=== PATIENT | male | born 1975 | race Hispanic/Latino ===

== ENCOUNTER 2019-08-24 00:44 | Emergency (ER) | payer OTHER, SELFPAY ==
[2019-08-24] MEDS ORDERED: NA CHLORIDE 0.9% 1,000 ML ONE (01:12)
[2019-08-24] MEDS ORDERED: ONDANSETRON 4 MG/2 ML VIAL ONE (01:12)
[2019-08-24] MEDS ORDERED: MORPHINE 4 MG/ML SYR ONE (01:12)
[2019-08-24 01:41] LABS: Basophils % 0.8 % (0-1.3); Hematocrit 39.4 % (39.6-49.0); Lymphocytes % 32.8 % (15.3-44.8); MPV 8.1 fL (7.6-11.3)
[2019-08-24 01:51] LABS: ALT/SGPT 40 U/L (12-78); AST/SGOT 20 U/L (15-37); Albumin 3.9 g/dL (3.4-5.0); Alkaline Phosphatase 72 U/L (45-117); BUN Blood Urea Nitrogen 18 mg/dL (7-18); Bicarbonate 25 mmol/L (21-32); Bilirubin Direct < 0.1 mg/dL (0-0.2); Bilirubin Total 0.2 mg/dL (0.2-1.0); Glucose Level 120 mg/dL (74-106); Lipase 113 U/L (73-393); Potassium 3.8 mmol/L (3.5-5.1); Protein, Total 7.6 g/dL (6.4-8.2); Sodium Level 139 mmol/L (136-145)
--- NOTE | 2019-08-24 03:59 | ER ---
Nurse's Notes [facility] Name: Carringotn Dumont Age: 43 yrs Sex: Male : 1975 Arrival Date: 08/24/2019 Time: 00:47 Bed 7 Private MD: Diagnosis: Abdominal tenderness Presentation: 08/24 01:07 Presenting complaint: Patient states: abd pain, back pain with N/V since 1800. ak1 Transition of care: patient was not received from another setting of care. Onset of symptoms was August 23, 2019. Risk Assessment: Do you want to hurt yourself or someone else? Patient reports no desire to harm self or others. Initial Sepsis Screen: Does the patient meet any 2 criteria? No. Patient's initial sepsis screen is negative. Does the patient have a suspected source of infection? No. Patient's initial sepsis screen is negative. Care prior to arrival: None. 01:07 Method Of Arrival: Wheelchair ak1 01:07 Acuity: DAYANNA 3 ak1 Historical: - Allergies: 01:10 PENICILLINS; ak1 - Home Meds: 01:10 levothyroxine oral [Active]; Enalapril Oral [Active]; Pepcid Oral [Active]; ak1 - PMHx: 01:10 Hypothyroidism; ak1 - PSHx: 01:10 None; ak1 - Immunization history:: Adult Immunizations unknown. - Social history:: Smoking status: Patient uses tobacco products, smokes one-half pack cigarettes per day. - Ebola Screening: : No symptoms or risks identified at this time. Screenin:10 Abuse screen: Denies threats or abuse. Denies injuries from another. Nutritional aa1 screening: No deficits noted. Tuberculosis screening: No symptoms or risk factors identified. Fall Risk None identified. Assessment: 01:10 General: Appears in no apparent distress. comfortable, Behavior is calm, cooperative, aa1 appropriate for age. Pain: Complains of pain in right lower quadrant Pain currently is 5 out of 10 on a pain scale. Quality of pain is described as sharp. Neuro: Level of Consciousness is awake, alert, obeys commands, Oriented to person, place, time, situation, Moves all extremities. Full function Gait is steady. Respiratory: Airway is patent Respiratory effort is even, unlabored, Respiratory pattern is regular, symmetrical. GI: Abdomen is obese, Bowel sounds present X 4 quads. Abd is soft X 4 quads Abdomen is tender to palpation in right lower quadrant. : No signs and/or symptoms were reported regarding the genitourinary system. EENT: No signs and/or symptoms were reported regarding the EENT system. Derm: Skin is intact, is healthy with good turgor, Skin is pink, warm \T\ dry. Musculoskeletal: Circulation, motion, and sensation intact. Capillary refill < 3 seconds. 02:13 Reassessment: pt in CT. ak1 02:27 Reassessment: pt returned from CT with infiltrated IV per industrial maintenance tech. Ursula Suero RN ak1 at bedside with ultrasound for IV placement. 03:51 Reassessment: Patient and/or family updated on plan of care and expected duration. Pain ak1 level reassessed. Patient is alert, oriented x 3, equal unlabored respirations, skin warm/dry/pink. pt resting with eyes closed, resp even and unlabored. family remains at bedside. Patient states feeling better. Patient states symptoms have improved. 04:20 Reassessment: Patient appears in no apparent distress at this time. No changes from ak1 previously documented assessment. Patient and/or family updated on plan of care and expected duration. Pain level reassessed. Patient is alert, oriented x 3, equal unlabored respirations, skin warm/dry/pink. Vital Signs: 01:06 BP 152 / 112; Pulse 78; Resp 22; Temp 97.9; Pulse Ox 97% on R/A; Weight 113.4 kg (R); ak1 Height 5 ft. 8 in. (172.72 cm) (R); Pain 5/10; 01:26 BP 142 / 87; Pulse 71; Resp 20; Pulse Ox 96% on R/A; aa1 03:51 BP 139 / 87; Pulse 66; Resp 18; Pulse Ox 97% on R/A; Pain 0/10; ak1 04:20 BP 127 / 89; Pulse 76; Resp 18; Pulse Ox 97% on R/A; ak1 01:06 Body Mass Index 38.01 (113.40 kg, 172.72 cm) ak1 ED Course: 00:47 Patient arrived in ED. cf2 00:53 Jamie Wayne MD is Attending Physician. tw4 01:06 Arm band placed on Patient placed in an exam room, on a stretcher, on pulse oximetry, ak1 Patient notified of wait time. 01:08 Triage completed. ak1 01:10 Patient has correct armband on for positive identification. Bed in low position. Call aa1 light in reach. Placed in gown. Pulse ox on. NIBP on. 01:16 Inserted saline lock: 20 gauge in right antecubital area, using aseptic technique. mw2 Blood collected. 01:41 Radiology exam delayed due to lab results not completed at this time. (BUN/Creatinine). kw1 02:12 Jessica Sharp, RN is Primary Nurse. ak1 02:18 Note: Unable to complete CT exam at this time. Patient infiltrated approximately 30 ml kw1 of IV contrast. Returned to ER and spoke with RN (Jessica Sharp) explaining the infiltration and asked to have a new IV started so exam can be completed.. 02:37 Missed attempt(s): 18 gauge in left antecubital area. Bleeding controlled, band aid lp1 applied, catheter tip intact. Inserted saline lock: 20 gauge in left antecubital area, using aseptic technique. 03:09 CT Abd/Pelvis - IV Contrast Only In Process Unspecified. EDMS 04:21 No provider procedures requiring assistance completed. IV discontinued, intact, ak1 bleeding controlled, No redness/swelling at site. Pressure dressing applied. Administered Medications: 01:20 Drug: Zofran 4 mg Route: IVP; Site: left antecubital; aa1 04:22 Follow up: Response: No adverse reaction ak1 01:20 Drug: NS 0.9% 1000 ml Route: IV; Rate: 1 bolus; Site: right antecubital; aa1 02:30 Follow up: IV Status: Completed infusion; IV Intake: 1000ml ak1 02:38 Follow up: IV SiteChange: left antecubital; IV SiteChange Reason: Infiltration lp1 01:22 Drug: morphine 4 mg Route: IVP; Site: right antecubital; aa1 04:22 Follow up: Response: No adverse reaction; Pain is decreased; RASS: Drowsy (-1) ak1 Intake: 02:30 IV: 1000ml; Total: 1000ml. ak1 Outcome: 03:59 Discharge ordered by . tw4 04:21 Discharged to home ambulatory, with family. ak1 04:21 Condition: improved 04:21 Discharge instructions given to patient, family, Instructed on discharge instructions, follow up and referral plans. no drinking with medication, no driving heavy equipment, medication usage, Demonstrated understanding of instructions, follow-up care, medications, Prescriptions given X 2. 04:22 Patient left the ED. ak1 Signatures: Dispatcher [employer] EDMS Marleen García RN RN aa1 Jessie Kelsey RN RN lp1 Jessica Sharp RN RN ak1 Danielle Dalton1 Jamie Wayne MD MD tw4 Daniel Myers 2 Lissette Garsia 2 Corrections: (The following items were deleted from the chart) 01:25 01:22 morphine 4 mg IVP in left antecubital aa1 aa1 01:26 01:21 NS 0.9% 1000 ml IV at 1 bolus in right antecubital aa1 aa1
--- NOTE | 2019-08-24 03:59 | EDPHYS ---
Physician Documentation [facility] Name: Carrington Dumont Age: 43 yrs Sex: Male : 1975 Arrival Date: 08/24/2019 Time: 00:47 Bed 7 Private MD: ED Physician Jamie Wayne HPI: 08/24 01:17 This 43 yrs old Male presents to ER via Wheelchair with complaints of tw4 Abdominal Pain, Back Pain, Chest Pain. 01:17 The patient presents with pain that is acute. tw4 01:24 The patient presents with abdominal pain in the lower abdomen, abdominal distention tw4 that is diffuse. Onset: The symptoms/episode began/occurred yesterday. The symptoms do not radiate. Associated signs and symptoms: none. The symptoms are described as sharp. Modifying factors: The symptoms are alleviated by remaining still, the symptoms are aggravated by movement, pressure. Severity of pain: At its worst the pain was moderate in the emergency department the pain is unchanged. The patient has not experienced similar symptoms in the past. Historical: - Allergies: 01:10 PENICILLINS; ak1 - Home Meds: 01:10 levothyroxine oral [Active]; Enalapril Oral [Active]; Pepcid Oral [Active]; ak1 - PMHx: 01:10 Hypothyroidism; ak1 - PSHx: 01:10 None; ak1 - Immunization history:: Adult Immunizations unknown. - Social history:: Smoking status: Patient uses tobacco products, smokes one-half pack cigarettes per day. - Ebola Screening: : No symptoms or risks identified at this time. ROS: 01:24 Constitutional: Negative for fever, chills, and weight loss, Eyes: Negative for injury, tw4 pain, redness, and discharge, Cardiovascular: Negative for chest pain, palpitations, and edema, Respiratory: Negative for shortness of breath, cough, wheezing, and pleuritic chest pain, Back: Negative for injury and pain, MS/Extremity: Negative for injury and deformity, Skin: Negative for injury, rash, and discoloration, Neuro: Negative for headache, weakness, numbness, tingling, and seizure. 01:24 Abdomen/GI: Positive for abdominal pain, nausea and vomiting, nausea, vomiting, abdominal cramps, abdominal distension. Exam: 01:24 Constitutional: This is a well developed, well nourished patient who is awake, alert, tw4 and in no acute distress. Head/Face: Normocephalic, atraumatic. Chest/axilla: Normal chest wall appearance and motion. Nontender with no deformity. No lesions are appreciated. Cardiovascular: Regular rate and rhythm with a normal S1 and S2. No gallops, murmurs, or rubs. Normal PMI, no JVD. No pulse deficits. Respiratory: Lungs have equal breath sounds bilaterally, clear to auscultation and percussion. No rales, rhonchi or wheezes noted. No increased work of breathing, no retractions or nasal flaring. Back: No spinal tenderness. No costovertebral tenderness. Full range of motion. MS/ Extremity: Pulses equal, no cyanosis. Neurovascular intact. Full, normal range of motion. Neuro: Awake and alert, GCS 15, oriented to person, place, time, and situation. Cranial nerves II-XII grossly intact. Motor strength 5/5 in all extremities. Sensory grossly intact. Cerebellar exam normal. Normal gait. 01:24 Abdomen/GI: Inspection: abdomen appears normal, Bowel sounds: diminished, Palpation: moderate abdominal tenderness, in the right lower quadrant, voluntary guarding, is elicited in the right lower quadrant. Vital Signs: 01:06 BP 152 / 112; Pulse 78; Resp 22; Temp 97.9; Pulse Ox 97% on R/A; Weight 113.4 kg (R); ak1 Height 5 ft. 8 in. (172.72 cm) (R); Pain 5/10; 01:26 BP 142 / 87; Pulse 71; Resp 20; Pulse Ox 96% on R/A; aa1 03:51 BP 139 / 87; Pulse 66; Resp 18; Pulse Ox 97% on R/A; Pain 0/10; ak1 04:20 BP 127 / 89; Pulse 76; Resp 18; Pulse Ox 97% on R/A; ak1 01:06 Body Mass Index 38.01 (113.40 kg, 172.72 cm) ak1 MDM: 01:05 Patient medically screened. tw4 06:36 Data reviewed: vital signs, nurses notes. Data interpreted: Pulse oximetry: tw4 Interpretation: normal. Counseling: I had a detailed discussion with the patient and/or guardian regarding: the historical points, exam findings, and any diagnostic results supporting the discharge/admit diagnosis, the presence of at least one elevated blood pressure reading (>120/80) during this emergency department visit. Special discussion: I discussed with the patient/guardian in detail that at this point there is no indication for admission to the hospital. It is understood, however, that if the symptoms persist or worsen the patient needs to return immediately for re-evaluation. 08/24 00:53 Order name: Basic Metabolic Panel; Complete Time: 03:52 08/24 03:52 Interpretation: Normal except: GLUC 120. 08/24 00:53 Order name: CBC with Diff; Complete Time: 03:52 08/24 03:52 Interpretation: Normal except: RBC 4.30; HCT 39.4. 08/24 00:53 Order name: Creatinine for Radiology; Complete Time: 03:52 08/24 03:52 Interpretation: Within normal limits: CRE 0.89. 08/24 00:53 Order name: Hepatic Function; Complete Time: 03:52 08/24 03:52 Interpretation: Normal except: GLOB 3.7. 08/24 00:53 Order name: Lipase; Complete Time: 03:52 08/24 03:52 Interpretation: Within normal limits: LIP 113. 08/24 01:11 Order name: CT Abd/Pelvis - IV Contrast Only 08/24 00:53 Order name: IV Saline Lock; Complete Time: 01:15 08/24 00:53 Order name: Labs collected and sent; Complete Time: 01:15 Administered Medications: 01:20 Drug: Zofran 4 mg Route: IVP; Site: left antecubital; aa1 04:22 Follow up: Response: No adverse reaction ak1 01:20 Drug: NS 0.9% 1000 ml Route: IV; Rate: 1 bolus; Site: right antecubital; aa1 02:30 Follow up: IV Status: Completed infusion; IV Intake: 1000ml ak1 02:38 Follow up: IV SiteChange: left antecubital; IV SiteChange Reason: Infiltration lp1 01:22 Drug: morphine 4 mg Route: IVP; Site: right antecubital; aa1 04:22 Follow up: Response: No adverse reaction; Pain is decreased; RASS: Drowsy (-1) ak1 Disposition: 08/24/19 03:59 Discharged to Home. Impression: Abdominal tenderness. - Condition is Stable. - Discharge Instructions: Abdominal Pain, Adult, Whit-ll-Dtss. - Prescriptions for Bentyl 20 mg Oral Tablet - take 1 tablet by ORAL route every 6 hours As needed; 20 tablet. Protonix 40 mg Oral Tablet - take 1 tablet by ORAL route once daily; 30 tablet. - Medication Reconciliation Form, Thank You Letter, Antibiotic Education, Prescription Opioid Use form. - Follow up: Private Physician; When: Upon discharge from the Emergency Department; Reason: Recheck today's complaints, Continuance of care. - Problem is new. - Symptoms have improved. Signatures: Dispatcher [employer] EDMS Marleen García RN RN aa1 Jessica Sharp RN RN ak1 Jamie Wayne MD MD tw4 Jessie Kelsey RN lp1 Corrections: (The following items were deleted from the chart) 04:22 03:59 08/24/2019 03:59 Discharged to Home. Impression: Abdominal tenderness. Condition ak1 is Stable. Forms are Medication Reconciliation Form, Thank You Letter, Antibiotic Education, Prescription Opioid Use. Follow up: Private Physician; When: Upon discharge from the Emergency Department; Reason: Recheck today's complaints, Continuance of care. Problem is new. Symptoms have improved. tw4
[2019-08-24 04:32] VITALS: TEMP 97.9
[2019-08-24 04:35] VITALS: O2SAT 97
[2019-08-24 04:36] VITALS: BP 127/89
--- NOTE | 2019-08-24 11:02 | RAD REPORT ---
EXAM DESCRIPTION: CT - Abdomen Pelvis W Contrast - 08/24/2019 3:38 am CLINICAL HISTORY: The patient is 43 years old and is Male; ABD PAIN TECHNIQUE: Axial computed tomography images of the abdomen and pelvis with intravenous contrast. S agittal and coronal reformatted images were created and reviewed. This CT exam was performed using one or more of the following dose reduction techniques: automated exposure control, adjustment of t he mA and/or kV according to patient size, and/or use of iterative reconstruction technique. COMPARISON: No relevant prior studies available. FINDINGS: LUNG BASES: Unremarkable. No mass. No consolidation. MEDIASTINUM: A small hiatal hernia is present. ABDOMEN: LIVER: There is a diffuse decrease in hepatic parenchymal density, consistent with fatty infiltr ation. GALLBLADDER AND BILE DUCTS: No calcified stones. No ductal dilation. PANCREAS: No ductal dilation. No mass. SPLEEN: Unremarkable. ADRENALS: Unremarkable. No mass. KIDNEYS AND URETERS: Unremarkable. The kidneys enhance symmetrically. No obstructing renal or ur eteral calculus is seen. No hydronephrosis or hydroureter. No perinephric fluid or stranding. STOMACH AND BOWEL: The stomach is distended with fluid and air. The small bowel is normal in neal iber. A moderate amount of stool is present throughout colon. There is no mucosal thickening or evide nce of bowel obstruction. PELVIS: APPENDIX: The appendix is normal in caliber without surrounding inflammation. BLADDER: The bladder is not well distended. REPRODUCTIVE: Unremarkable as visualized. ABDOMEN and PELVIS: INTRAPERITONEAL SPACE: Unremarkable. No free air. No significant fluid collection. BONES/JOINTS: Bilateral pars defects are present at L5 without evidence of anterolisthesis. Mi nimal degenerative change of the spine is present. SOFT TISSUES: There are small bilateral fat containing inguinal hernias. VASCULATURE: Unremarkable. No abdominal aortic aneurysm. LYMPH NODES: Unremarkable. No enlarged lymph nodes. IMPRESSION: No acute findings on this contrasted CT of the abdomen and pelvis to explain the patient 's symptoms. Electronically signed by: Janie Rushing MD 08/24/2019 3:31 AM STATEMENT PROCESSOR Due to temporary technical issues with the PACS/Fluency reporting system, reports are being signed by the in house radiologist as a courtesy to ensure prompt reporting. The interpreting radiologist is f ully responsible for the content of the report.
--- OUTSIDE RECORDS SUMMARY | 2019-08-29 22:11 | XMS REPORT ---
:1975 [facility] Address [address] [place]lsen [address] [place] [id number] Care Team Providers Name Role Phone Unavailable Unavailable Unavailable Problems This patient has no known problems. Allergies, Adverse Reactions, Alerts This patient has no known allergies or adverse reactions. Medications This patient has no known medications.
== END 2019-08-24 04:22 | disposition home or self-care (01) ==
LOC: ER 00:44
DX: R10.819 Abdominal tenderness, unspecified site (principal); E03.9 Hypothyroidism, unspecified; F17.210 Nicotine dependence, cigarettes, uncomplicated; Z88.0 Allergy status to penicillin
CPT/HCPCS: 36415; 74177; 80048; 80076; 83690; 85025; 96361; 96374; 96375; 99284; J2405; J7030; Q9967

== ENCOUNTER 2019-09-16 23:01 | Emergency (ER) | payer SELFPAY ==
--- OUTSIDE RECORDS SUMMARY | 2019-09-16 23:03 | XMS REPORT ---
:1975 [facility] Address [address] [place]lsen [address] [place] [id number] Care Team Providers Name Role Phone Unavailable Unavailable Unavailable Problems This patient has no known problems. Allergies, Adverse Reactions, Alerts This patient has no known allergies or adverse reactions. Medications This patient has no known medications.
[2019-09-17] MEDS ORDERED: ASPIRIN 81 MG CHEWABLE TABLET ONE
[2019-09-17 00:10] LABS: Arterial Blood Carboxyhemoglob 2.2 % (0-1.5); Blood Gas Oxyhemoglobin 95.3 % (94-97); Blood O2 Saturation 98.3 % (92-98.5)
[2019-09-17 00:25] LABS: Basophils % 0.7 % (0-1.3); Hematocrit 42.1 % (39.6-49.0); RBC Red Blood Cell Count 4.57 M/uL (4.33-5.43)
[2019-09-17 00:31] LABS: Protime INR 0.96
[2019-09-17 00:54] LABS: ALT/SGPT 58 U/L (12-78); AST/SGOT 30 U/L (15-37); Albumin 4.2 g/dL (3.4-5.0); Alkaline Phosphatase 84 U/L (45-117); BUN Blood Urea Nitrogen 14 mg/dL (7-18); Bicarbonate 25 mmol/L (21-32); Bilirubin Direct < 0.1 mg/dL (0-0.2); Bilirubin Total 0.3 mg/dL (0.2-1.0); Glucose Level 116 mg/dL (74-106); Magnesium 2.4 mg/dL (1.8-2.4); NT PRO-BNP 19 pg/mL (<125); Protein, Total 8.5 g/dL (6.4-8.2); Sodium Level 138 mmol/L (136-145); Troponin (Emerg Dept Use Only) < 0.02 ng/mL (0.0-0.045)
[2019-09-17 01:08] LABS: Barbiturates NEGATIVE (NEGATIVE); Benzodiazepines NEGATIVE (NEGATIVE); Cocaine NEGATIVE (NEGATIVE); METHAMPHETAM NEGATIVE (NEGATIVE); Methadone NEGATIVE (NEGATIVE); Opiates NEGATIVE (NEGATIVE); Phencyclidine NEGATIVE (NEGATIVE); THC Cannibis NEGATIVE (NEGATIVE)
[2019-09-17] MEDS ORDERED: ALBUTEROL 2.5 MG/3 ML NEB SOL ONE (02:04)
[2019-09-17] MEDS ORDERED: IPRATROPIUM BROM 0.5MG/2.5ML ONE (02:04)
--- NOTE | 2019-09-17 02:42 | ER ---
Nurse's Notes [facility] Name: Carrington Dumont Age: 43 yrs Sex: Male : 1975 Arrival Date: 09/16/2019 Time: 23:03 Bed 15 Private MD: Diagnosis: Chest pain Presentation: 09/16 23:23 Presenting complaint: Patient states: int burning CP since 2100 tonight. Also c/o aa1 swelling in LLE and SOB. Transition of care: patient was not received from another setting of care. Onset of symptoms was September 16, 2019 at 21:00. Risk Assessment: Do you want to hurt yourself or someone else? Patient reports no desire to harm self or others. Initial Sepsis Screen: Does the patient meet any 2 criteria? No. Patient's initial sepsis screen is negative. Does the patient have a suspected source of infection? No. Patient's initial sepsis screen is negative. Care prior to arrival: None. 23:23 Method Of Arrival: Ambulatory aa1 23:23 Acuity: DAYANNA 2 aa1 Historical: - Allergies: 23:26 PENICILLINS; aa1 - Home Meds: 23:26 enalapril maleate 10 mg oral tab 1 tab once daily [Active]; levothyroxine 125 mcg oral aa1 tab 1 tab once daily [Active]; - PMHx: 23:26 Hypothyroidism; Hypertension; aa1 - PSHx: 23:26 Tonsillectomy; aa1 - Immunization history:: Flu vaccine is not up to date. - Social history:: Smoking status: Patient uses tobacco products, smokes one-half pack cigarettes per day. - Ebola Screening: : Patient denies exposure to infectious person Patient denies travel to an Ebola-affected area in the 21 days before illness onset. Screenin:30 Abuse screen: Denies threats or abuse. Denies injuries from another. Nutritional aa1 screening: No deficits noted. Tuberculosis screening: No symptoms or risk factors identified. Fall Risk None identified. Assessment: 23:30 General: Appears in no apparent distress. uncomfortable, Behavior is calm, cooperative, aa1 appropriate for age. Pain: Complains of pain in chest Pain radiates to left arm Pain currently is 10 out of 10 on a pain scale. Quality of pain is described as burning, Pain began 3 hours ago. Is intermittent. Neuro: Level of Consciousness is awake, alert, obeys commands, Oriented to person, place, time, situation, Moves all extremities. Full function Gait is steady, Speech is normal. Cardiovascular: Reports chest pain, shortness of breath, Denies diaphoresis, nausea, palpitations, vomiting, Heart tones S1 S2 present Capillary refill < 3 seconds Clubbing of nail beds is absent JVD is absent Patient's skin is warm and dry. Rhythm is regular Chest pain quality is burning, is located in substernal area radiates to left arm(s) began 3 hours prior to arrival episodes are intermittent. Respiratory: Airway is patent Respiratory effort is even, unlabored, Respiratory pattern is regular, symmetrical. GI: No signs and/or symptoms were reported involving the gastrointestinal system. : No signs and/or symptoms were reported regarding the genitourinary system. EENT: No signs and/or symptoms were reported regarding the EENT system. Derm: Skin is intact, is healthy with good turgor, Skin is pink, warm \T\ dry. Musculoskeletal: Circulation, motion, and sensation intact. Capillary refill < 3 seconds. 09/17 00:58 Reassessment: Patient appears in no apparent distress at this time. Patient and/or aa1 family updated on plan of care and expected duration. Pain level reassessed. Patient is alert, oriented x 3, equal unlabored respirations, skin warm/dry/pink. Awaiting UDS results Patient states feeling better. 01:57 Reassessment: Patient appears in no apparent distress at this time. Patient and/or aa1 family updated on plan of care and expected duration. Pain level reassessed. Patient is alert, oriented x 3, equal unlabored respirations, skin warm/dry/pink. Awaiting repeat troponin level. 02:10 Reassessment: Patient appears in no apparent distress at this time. Patient and/or cc3 family updated on plan of care and expected duration. Pain level reassessed. Patient is alert, oriented x 3, equal unlabored respirations, skin warm/dry/pink. Patient denies pain at this time. 02:50 Reassessment: Patient appears in no apparent distress at this time. Patient and/or cc3 family updated on plan of care and expected duration. Pain level reassessed. Patient is alert, oriented x 3, equal unlabored respirations, skin warm/dry/pink. Dr. Howard discharged the patient home with prescription given. IV cannula removed and patient left ER vitally stable and ambulatory with his . No valuables left in the patient's room. Patient denies pain at this time. Patient states feeling better. Patient states symptoms have improved. Vital Signs: 09/16 23:26 BP 138 / 88; Pulse 85; Resp 18; Temp 97.7; Pulse Ox 98% on R/A; Weight 113.4 kg; Height aa1 5 ft. 8 in. (172.72 cm); Pain 10/10; 09/17 00:58 BP 128 / 90; Pulse 76; Resp 20; Pulse Ox 94% on R/A; Pain 0/10; aa1 01:57 BP 137 / 76; Pulse 80; Resp 22; Pulse Ox 95% on R/A; aa1 02:30 BP 137 / 80; Pulse 83; Resp 19 S; Pulse Ox 98% on R/A; Pain 0/10; cc3 09/16 23:26 Body Mass Index 38.01 (113.40 kg, 172.72 cm) aa1 ED Course: 09/16 23:03 Patient arrived in ED. mr 23:10 Daniel Howard MD is Attending Physician. pkl 23:23 Marleen García RN is Primary Nurse. aa1 23:24 Triage completed. aa1 23:26 Arm band placed on right wrist. aa1 23:30 Patient has correct armband on for positive identification. Placed in gown. Bed in low aa1 position. Call light in reach. environmental monitoring specialist on. Pulse ox on. NIBP on. 23:30 Patient maintains SpO2 saturation greater than 95% on room air. aa1 09/17 00:05 Inserted saline lock: 20 gauge in right forearm, using aseptic technique. Blood ds4 collected. Missed attempt(s): 20 gauge in right antecubital area. Bleeding controlled, band aid applied, catheter tip intact. 02:00 Report given to Shima Anderson RN. aa1 02:00 Report received from VIOLET Hawley. cc3 02:40 Arsenio Urbina MD is Referral Physician. pkl 02:50 No provider procedures requiring assistance completed. IV discontinued, intact, cc3 bleeding controlled, No redness/swelling at site. Pressure dressing applied. Administered Medications: 00:00 Drug: Aspirin 162 mg Route: PO; aa1 01:03 Follow up: Response: No adverse reaction aa1 02:00 Drug: Albuterol - atroVENT (3:1) (2.5 mg - 0.5 mg) 3 ml Route: Nebulizer; cc3 02:33 Follow up: Response: No adverse reaction; Marked relief of symptoms cc3 Outcome: 02:41 Discharge ordered by . pkjewell 02:50 Discharged to home ambulatory, with family. cc3 02:50 Condition: stable 02:50 Discharge instructions given to patient, family, Instructed on discharge instructions, follow up and referral plans. medication usage, Demonstrated understanding of instructions, follow-up care, medications, Prescriptions given X 1. 03:00 Patient left the ED. cc3 Signatures: Marleen García RN RN aa1 Daniel Howard MD MD pkl Rivera, Mary mr Swanson, Donovan dsShima Olivera cc3
--- NOTE | 2019-09-17 02:43 | EDPHYS ---
Physician Documentation [facility] Name: Carrington Dumont Age: 43 yrs Sex: Male : 1975 Arrival Date: 09/16/2019 Time: 23:03 Bed 15 Private MD: ED Physician Daniel Howard HPI: 09/16 23:37 This 43 yrs old Male presents to ER via Ambulatory with complaints of Chest pkl Pain. 23:37 The patient or guardian reports chest pain that is located primarily in the substernal pkl area. Onset: just prior to arrival, 2 hour(s) ago. The pain radiates to the left arm. Associated signs and symptoms: Pertinent positives: shortness of breath, swelling left leg. The chest pain is described as burning, a pressure. Historical: - Allergies: 23:26 PENICILLINS; aa1 - Home Meds: 23:26 enalapril maleate 10 mg oral tab 1 tab once daily [Active]; levothyroxine 125 mcg oral aa1 tab 1 tab once daily [Active]; - PMHx: 23:26 Hypothyroidism; Hypertension; aa1 - PSHx: 23:26 Tonsillectomy; aa1 - Immunization history:: Flu vaccine is not up to date. - Social history:: Smoking status: Patient uses tobacco products, smokes one-half pack cigarettes per day. - Ebola Screening: : Patient denies exposure to infectious person Patient denies travel to an Ebola-affected area in the 21 days before illness onset. ROS: 23:39 Eyes: Negative for injury, pain, redness, and discharge, ENT: Negative for injury, pkl pain, and discharge, Neck: Negative for injury, pain, and swelling. 23:39 Cardiovascular: Positive for chest pain. 23:39 Respiratory: Positive for shortness of breath, Negative for cough. 23:39 Abdomen/GI: Negative for abdominal pain, nausea, vomiting, and diarrhea. 23:39 Back: Negative for pain at rest. 23:39 : Negative for urinary symptoms. 23:39 MS/extremity: Positive for swelling, of the left leg. 23:39 Skin: Negative for rash. 23:39 Neuro: Negative for altered mental status, loss of consciousness. Exam: 23:39 Head/Face: Normocephalic, atraumatic. Eyes: Pupils equal round and reactive to light, pkl extra-ocular motions intact. Lids and lashes normal. Conjunctiva and sclera are non-icteric and not injected. Cornea within normal limits. Periorbital areas with no swelling, redness, or edema. ENT: Nares patent. No nasal discharge, no septal abnormalities noted. Tympanic membranes are normal and external auditory canals are clear. Oropharynx with no redness, swelling, or masses, exudates, or evidence of obstruction, uvula midline. Mucous membranes moist. Neck: Trachea midline, no thyromegaly or masses palpated, and no cervical lymphadenopathy. Supple, full range of motion without nuchal rigidity, or vertebral point tenderness. No Meningismus. Chest/axilla: Normal chest wall appearance and motion. Nontender with no deformity. No lesions are appreciated. Cardiovascular: Regular rate and rhythm with a normal S1 and S2. No gallops, murmurs, or rubs. Normal PMI, no JVD. No pulse deficits. Respiratory: Lungs have equal breath sounds bilaterally, clear to auscultation and percussion. No rales, rhonchi or wheezes noted. No increased work of breathing, no retractions or nasal flaring. Abdomen/GI: Soft, non-tender, with normal bowel sounds. No distension or tympany. No guarding or rebound. No evidence of tenderness throughout. Back: No spinal tenderness. No costovertebral tenderness. Full range of motion. Skin: Warm, dry with normal turgor. Normal color with no rashes, no lesions, and no evidence of cellulitis. 23:39 Musculoskeletal/extremity: Extremities: grossly normal except: noted in the left leg: swelling. 23:39 Neuro: Orientation: is normal, Mentation: is normal, Cranial nerves: grossly normal, Motor: is normal. Vital Signs: 23:26 BP 138 / 88; Pulse 85; Resp 18; Temp 97.7; Pulse Ox 98% on R/A; Weight 113.4 kg; Height aa1 5 ft. 8 in. (172.72 cm); Pain 07/29; 09/17 00:58 BP 128 / 90; Pulse 76; Resp 20; Pulse Ox 94% on R/A; Pain 0/10; aa1 01:57 BP 137 / 76; Pulse 80; Resp 22; Pulse Ox 95% on R/A; aa1 02:30 BP 137 / 80; Pulse 83; Resp 19 S; Pulse Ox 98% on R/A; Pain 0/10; cc3 09/16 23:26 Body Mass Index 38.01 (113.40 kg, 172.72 cm) aa1 MDM: 09/16 23:10 Patient medically screened. pkl 09/17 02:34 Data reviewed: vital signs, nurses notes, lab test result(s), EKG, radiologic studies, pkl plain films. ED course: Patient feeling better. Asymptomatic. Discussed lab. and X' rays results with patient. Advised to follow up with [employer] Professor in 2 to 3 days for further evaluations .To return if symptoms are worse. Patient understood instructions. 09/16 23:33 Order name: Basic Metabolic Panel pkl 09/16 23:33 Order name: CBC with Diff pkl 09/16 23:33 Order name: LFT's pkl 09/16 23:33 Order name: Magnesium pkl 09/16 23:33 Order name: NT PRO-BNP pkl 09/16 23:33 Order name: PT-INR pkl 09/16 23:33 Order name: Troponin (emerg Dept Use Only) pkl 09/16 23:33 Order name: D-Dimer pkl 09/16 23:33 Order name: ABG pkl 09/17 00:12 Order name: ABG Arterial Blood Gas; Complete Time: 00:32 EDMS 09/17 00:33 Order name: CBC with Automated Diff; Complete Time: 00:33 EDMS 09/17 00:33 Order name: Protime (+INR); Complete Time: 00:33 EDMS 09/17 00:33 Order name: D-Dimer; Complete Time: 00:33 EDMS 09/16 23:28 Order name: EKG; Complete Time: 23:28 aa1 09/16 23:28 Order name: EKG - Nurse/Tech; Complete Time: 23:28 aa1 09/16 23:33 Order name: XRAY Chest (1 view) pkl 09/16 23:33 Order name: EKG; Complete Time: 23:34 pkl 09/16 23:33 Order name: Cardiac monitoring; Complete Time: 23:44 pkl 09/17 00:54 Order name: Basic Metabolic Panel; Complete Time: 01:07 EDMS 09/17 00:54 Order name: Liver (Hepatic) Function; Complete Time: 01:07 EDMS 09/17 00:54 Order name: Troponin (Emerg Dept Use Only); Complete Time: 01:07 EDMS 09/17 00:54 Order name: NT PRO-BNP; Complete Time: 01:07 EDMS 09/17 00:54 Order name: Magnesium; Complete Time: 01:07 EDMS 09/17 01:08 Order name: Urine Drug Screen; Complete Time: 01:14 EDMS 09/17 01:43 Order name: EKG; Complete Time: 01:44 pkl 09/17 01:43 Order name: Troponin (emerg Dept Use Only) pkl 09/17 02:19 Order name: Troponin (Emerg Dept Use Only); Complete Time: 02:32 EDMS 09/16 23:33 Order name: EKG - Nurse/Tech; Complete Time: 23:44 pkl 09/16 23:33 Order name: IV Saline Lock; Complete Time: 01:03 pkl 09/16 23:33 Order name: Labs collected and sent; Complete Time: 01:03 pkl 09/16 23:33 Order name: O2 Per Protocol; Complete Time: 23:45 pkl 09/16 23:33 Order name: O2 Sat Monitoring; Complete Time: 23:45 pkl Administered Medications: 00:00 Drug: Aspirin 162 mg Route: PO; aa1 01:03 Follow up: Response: No adverse reaction aa1 02:00 Drug: Albuterol - atroVENT (3:1) (2.5 mg - 0.5 mg) 3 ml Route: Nebulizer; cc3 02:33 Follow up: Response: No adverse reaction; Marked relief of symptoms cc3 Disposition: 09/17/19 02:41 Discharged to Home. Impression: Chest pain. - Condition is Stable. - Prescriptions for Albuterol Sulfate 90 mcg/actuation - inhale 1-2 puff by INHALATION route every 4-6 hours; 1 Inhaler. - Medication Reconciliation Form, Thank You Letter, Antibiotic Education, Prescription Opioid Use form. - Follow up: Arsenio Urbina MD; When: 2 - 3 days; Reason: Re-evaluation by your physician. - Problem is new. - Symptoms have improved. Signatures: Dispatcher [employer] EDMarleen Coronado RN RN aa1 Daniel Howard MD MD pkl Shima Anderson cc3 Corrections: (The following items were deleted from the chart) 09/16 23:45 23:34 URINE DRUG SCREEN+CHEM UR.LAB.BRZ ordered. EDMS EDMS 09/17 03:00 02:41 09/17/2019 02:41 Discharged to Home. Impression: Chest pain. Condition is Stable. cc3 Forms are Medication Reconciliation Form, Thank You Letter, Antibiotic Education, Prescription Opioid Use. Follow up: Arsenio Urbina; When: 2 - 3 days; Reason: Re-evaluation by your physician. Problem is new. Symptoms have improved. pkl
--- NOTE | 2019-09-17 08:36 | RAD REPORT ---
EXAM DESCRIPTION: [facility] Single View09/16/2019 11:53 pm CLINICAL HISTORY: Chest pain COMPARISON: none FINDINGS: The lungs appear clear of acute infiltrate. The heart is normal size IMPRESSION: No acute abnormalities displayed
--- NOTE | 2019-09-17 09:38 | EKG ---
Test Date: 2019-09-17 Test Time: 02:13:29 Haunted History Tour Guide: SKYLA MEASUREMENT RESULTS: Intervals: Rate: 78 IN: 132 QRSD: 92 QT: 392 QTc: 446 [place]: P: 44 IN: 132 QRS: 47 T: 55 INTERPRETIVE STATEMENTS: Normal sinus rhythm Nonspecific T wave abnormality Abnormal ECG Compared to ECG 09/16/2019 23:20:52 No significant changes Electronically Signed On 09-17-19 09:37:45 GLOVE PARTS CUTTER by Arsenio Urbina
--- NOTE | 2019-09-17 09:39 | EKG ---
Test Date: 2019-09-16 Test Time: 23:20:52 Paste Up Artist: TOREY MEASUREMENT RESULTS: Intervals: Rate: 78 MS: 126 QRSD: 90 QT: 374 QTc: 426 [place]: P: 27 MS: 126 QRS: 36 T: 50 INTERPRETIVE STATEMENTS: Normal sinus rhythm Nonspecific T wave abnormality Abnormal ECG Compared to ECG 05/23/2017 03:43:53 T-wave abnormality now present Myocardial infarct finding no longer present Electronically Signed On 09-17-19 09:39:16 BUSINESS DEVELOPMENT EXECUTIVE by Arsenio Urbina
[2019-09-17 16:05] VITALS: TEMP 97.7
[2019-09-17 16:09] VITALS: BP 137/80; O2SAT 98
== END 2019-09-17 03:00 | disposition home or self-care (01) ==
LOC: ER 23:01
DX: R07.9 Chest pain, unspecified (principal); I10 Essential (primary) hypertension; E03.9 Hypothyroidism, unspecified; F17.210 Nicotine dependence, cigarettes, uncomplicated; Z88.0 Allergy status to penicillin
CPT/HCPCS: 36415; 71045; 80048; 80076; 80307; 82805; 83735; 83880; 84484; 85025; 85379; 85610; 93005; 94640; 99285

== ENCOUNTER 2020-07-10 21:22 | Emergency (ER) | payer SELFPAY ==
--- OUTSIDE RECORDS SUMMARY | 2020-07-10 21:23 | XMS REPORT | Continuity of Care Document ---
:1975 Author Organization [facility] t Address [address] [place] [address] Care Team Providers Name Role Phone Mihaela Contreras MD Attending Clinician Problems This patient has no known problems. Allergies, Adverse Reactions, Alerts This patient has no known allergies or adverse reactions. Medications This patient has no known medications. Procedures This patient has no known procedures. Encounters Start End Encounter Admission Attending Care Care Encounter Source Date/Time Date/Time Type Type Clinicians Facility Department ID 2020-07-09 2020-07-10 Emergency [facility] [id number] 19:41:00 00:40:00 Mihaela Landeros [id number] [place] [id number] [place] [id number] Results This patient has no known results.
--- OUTSIDE RECORDS SUMMARY | 2020-07-10 21:24 | XMS REPORT | Summary of Care ---
:1975 Author Organization [facility] Address [address] [place] [id number] Care Team Providers Name Role Phone Pcp, Does Not Have A Primary Care Provider Reason for Referral MRI/CAT Scan (STAT) Status Reason Specialty Diagnoses / Referred By Referred To Procedures Contact Contact New Request Diagnostic Diagnoses Chest pain, unspecified type Florinarima, [place] Radiology Procedures CT ABDOMEN PELVIS W MURIEL Olguin MD [address] [place] [address] Radiology Services (STAT) Status Reason Specialty Diagnoses / Referred By Referred To Procedures Contact Contact New Request Diagnostic Diagnoses Chest pain, unspecified type Yarima, [place] Radiology Procedures XR CHEST 1 IRENA Olguin MD [address] [place], [place] [id number] Reason for Visit Reason Comments Chest Pain Auth/Cert Status Reason Specialty Diagnoses / Referred By Referred To Procedures Contact Contact Emergency Medicine [facility] ergency Dept [address] [place] [address] Fax: Encounter Details Date Type Department Care Team Description 07/09/2020 - Emergency ADC-Emergency Yarima, [place] S, Epigastri c pain (Primary Dx); 07/10/2020 Department Chest pain, unspecified type; [address] [place] [address] [facility] [phone] Allergies Active Allergy Reactions Severity Noted Date Comments Penicillin Unknown - See comments 03/30/2019 documented as of this encounter (statuses as of 07/10/2020) Medications Medication Sig Dispensed Refills Start Date End Date Status levothyroxine 125 mcg Take 125 mcg by 0 Active tablet mouth every morning. LORazepam (ATIVAN) 0.5 Take 1 tablet by 10 tablet 0 06/14/2017 Active mg tablet mouth 2 (two) times daily as needed for Anxiety. cyclobenzaprine 5 mg Take 1 tablet by 24 tablet 0 03/30/2019 Active tabletIndications: mouth 3 (three) Lumbar pain, Muscle times daily as spasm needed for Muscle Spasms. ibuprofen 800 mg Take 1 tablet by 21 tablet 0 08/17/2019 Active tabletIndications: Left mouth every 8 flank pain, (eight) hours as Hypertension, needed for Pain unspecified type (scale 4-6). pantoprazole (PROTONIX) Take 1 tablet by 28 tablet 0 0 Active 40 mg EC mouth daily. tabletIndications: Epigastric pain dicyclomine 20 mg Take 1 tablet by 20 tablet 0 07/10/2020 Active tabletIndications: mouth every 6 Epigastric pain (six) hours as needed for Abdominal pain. benzonatate 200 mg Take 1 capsule 21 capsule 0 07/10/2020 Active capsuleIndications: by mouth 3 Cough (three) times daily as needed for Cough. documented as of this encounter (statuses as of 07/10/2020) Active Problems No known active problemsdocumented as of this encounter (statuses as of 07/10/2020) Social History Tobacco Use Types Packs/Day Years Used Date Never Assessed Sex Assigned at Date Recorded Not on file COVID-19 Exposure Response Date Recorded In the last month, have you been in contact with No / Unsure 07/09/2020 7:46 PM CDT someone who was confirmed or suspected to have Coronavirus / COVID-19? documented as of this encounter Last Filed Vital Signs Vital Sign Reading Time Taken Comments Blood Pressure 123/77 07/10/2020 12:30 AM CDT Pulse 75 07/10/2020 12:30 AM CDT Temperature 37.4 C (99.3 F) 07/09/2020 7:48 PM CDT Respiratory Rate 19 07/10/2020 12:30 AM CDT Oxygen Saturation 97% 07/10/2020 12:30 AM CDT Inhaled Oxygen Concentration - - Weight 99.8 kg (220 lb) 07/09/2020 7:43 PM CDT Height 172.7 cm (5' 8") 07/09/2020 7:48 PM CDT Body Mass Index 33.45 07/09/2020 7:43 PM CDT documented in this encounter Discharge Instructions Mihaela Tena MD - 07/10/2020 DIAGNOSIS Diagnoses that have been ruled out: None Diagnoses that are still under consideration: None Final diagnoses: Chest pain, unspecified type Epigastric pain Cough NO LIFE-THREATENING FINDINGS ON TODAY'S EXAM. PROCEDURES IN THE ER TODAY: Orders Placed This Encounter Procedures XR CHEST [address] ABDOMEN PELVIS W CONTRAST CBC WITH DIFF COMP. METABOLIC PANEL (94345) TROPONIN I D-DIMER COVID-19 (ID NOW RAPID TESTING) PROTHROMBIN TIME / INR LIPASE ADC / LCC - DRUG SCREEN TRIAGE TROPONIN I MEDICATIONS ADMINISTERED IN THE ER TODAY AND DISCHARGE MEDICATIONS: Orders Placed This Encounter Medications aspirin chewable tablet 324 mg nitroglycerin (NITROSTAT) sublingual tablet 0.4 mg morpHINE injection 4 mg ondansetron (ZOFRAN (PF)) injection 4 mg pantoprazole (PROTONIX) 40 mg in NaCl 0.9% (NS) 100 mL MINI-BAG morpHINE injection 4 mg LORazepam (ATIVAN) injection 1 mg codeine-guaifenesin (ROBITUSSIN AC) 10-100 mg/5 mL solution 10 mL iohexol (OMNIPAQUE 350 BULK-100 mL) injection 120 mL pantoprazole (PROTONIX) 40 mg EC tablet dicyclomine 20 mg tablet benzonatate 200 mg capsule FOLLOW-UP RECOMMENDATIONS: RECOMMEND FOLLOW-UP WITH YOUR PRIMARY CARE PROVIDER OR GASTROENTEROLOGY SPECIALIST IN 2-5 DAYS, ESPECIALLY IF NO IMPROVEMENT IN SYMPTOMS. MAY FOLLOW-UP WITH A PROVIDER OF YOUR CHOICE, SUCH : 1. A PHYSICIAN OF YOUR CHOICE 2. [facility], . LOCATIONS IN [facility] 3. [facility], [address] [place] [address]; [phone] OR, IF YOU WISH TO FOLLOW-UP WITHIN THE [facility], MAY TRY THESE OPTIONS (CLINIC APPOINTMENTS AVAILABLE ON ANGU-LX-ORQG BASIS): 1. SCHEDULE AN APPOINTMENT ONLINE AT [email or web address] 2. OR CALL THE [facility] AT OR 3. OR CALL YOUR [facility] PHYSICIAN'S OFFICE DIRECTLY IF YOU ARE ALREADY AN ESTABLISHED [facility] PATIENT. RETURN TO ER FOR WORSENING OF SYMPTOMS documented in this encounter ED Notes Irina Owusu RN - 07/09/2020 7:46 PM CDTCC: Patient complains of chest pain that started at 0100 today. States is is a 10/10 pressure. 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 Travel and Exposure Screening: Symptoms Does patient have any of these symptoms?: (not recorded) Exposure Screening Has patient had contact with someone with a communicable disease in the last month?: (not recorded) Diseases exposed to:: (not recorded) Is Patient ?: (not recorded) Exposure Date: (not recorded) Chief Complaint: Chief Complaint Patient presents with Chest Pain History of Present Illness: Carrington Dumont is a 44 year old male who presented to the ED for evaluation of "chest pain" that began about midnight today. Pain is described as a "pressure" sensation that does not radiate. No diaphoresis. No N/V. No palpitations. No known aggravating or relieving factors. Pain is rated at 10/10 and has been persitent Denies any previous hx of CAD. Pt points to epigastrium as location of the "Chest Pain". Denies any SOB/Dyspnea. No calf tenderness/pain/swelling. No personal or family hx of DVT/PE/CA. No prolonged immobilization. Pt is a smoker. Denies any sick contacts. No melenal. No hematochezia. No hematemesis. Headache nonproductive cough Past Medical History/Immunizations: Past Medical History: Diagnosis Date HTN (hypertension) Hypothyroidism Tetanus received in last 5 years: No HLD Childhood immunizations: Up-to-date Allergies: Allergies Allergen Reactions Penicillin Unknown - See comments Past Social History: Substance & Sexual Activity No substance use or sexual activity history on file. Past Surgical History: Past Surgical History: Procedure Laterality Date OTHER Testicular surgery TONGUE TO LIP SURGERY TONSILLECTOMY Review of Systems: Review of Systems Constitutional: Positive for appetite change. Negative for activity change, chills, diaphoresis, fatigue, fever and unexpected weight change. HENT: Negative. Eyes: Negative. Respiratory: Negative. Negative for cough, shortness of breath and wheezing. Breasts: Negative. Cardiovascular: Positive for chest pain. Negative for palpitations and leg swelling. Gastrointestinal: Negative for nausea and vomiting. Genitourinary: Negative. Musculoskeletal: Negative. Skin: Negative. Neurological: Negative. Psychiatric/Behavioral: Negative. Endocrine: Endocrine negative Physical Exam: ED Triage Vitals Weight 07/09/201942 99.8 kg (220 lb) Actual or estimated 07/09/201942 Estimated by patient/family report Height 07/09/201947 1.727 m (5' 8") BP 07/09/201947 (!) 151/96 Pulse 07/09/201947 100 Resp 07/09/201947 18 Temp 07/09/201947 37.4 C (99.3 F) Temp source 07/09/201947 Oral SpO2 07/09/201947 99 % Measured on 07/09/201947 Room air Physical Exam Constitutional: General: He is not in acute distress. Appearance: He is well-developed. He is obese. He is not ill-appearing, toxic-appearing or diaphoretic. HENT: Head: Normocephalic and atraumatic. Nose: Nose normal. No congestion or rhinorrhea. Mouth/Throat: Mouth: Mucous membranes are moist. Pharynx: Oropharynx is clear. No oropharyngeal exudate or posterior oropharyngeal erythema. Eyes: General: No scleral icterus. Right eye: No discharge. Left eye: No discharge. Conjunctiva/sclera: Conjunctivae normal. Pupils: Pupils are equal, round, and reactive to light. Neck: Musculoskeletal: Normal range of motion and neck supple. Cardiovascular: Rate and Rhythm: Normal rate and regular rhythm. Pulses: Normal pulses. Heart sounds: No murmur. Pulmonary: Effort: Pulmonary effort is normal. No respiratory distress. Breath sounds: Normal breath sounds. No stridor. No wheezing, rhonchi or rales. Chest: Chest wall: No tenderness. Abdominal: General: Bowel sounds are normal. There is no distension. Palpations: Abdomen is soft. There is no mass. Tenderness: There is abdominal tenderness. There is no right CVA tenderness, left CVA tenderness,guarding or rebound. Hernia: No hernia is present. Comments: Has mild tenderness to RUQ/Epigatrium Musculoskeletal: Normal range of motion. General: No swelling, tenderness, deformity or signs of injury. Right lower leg: No edema. Left lower leg: No edema. Skin: General: Skin is warm and dry. Capillary Refill: Capillary refill takes less than 2 seconds. Coloration: Skin is not jaundiced or pale. Findings: No bruising, erythema, lesion or rash. Neurological: General: No focal deficit present. Mental Status: He is alert and oriented to person, place, and time. Cranial Nerves: No cranial nerve deficit. Sensory: No sensory deficit. Motor: No weakness. Coordination: Coordination normal. Gait: Gait normal. Deep Tendon Reflexes: Reflexes normal. Psychiatric: Behavior: Behavior normal. Thought Content: Thought content normal. Judgment: Judgment normal. Radiology: Hospital Encounter on 07/09/20 CT ABDOMEN PELVIS W CONTRAST Narrative EXAM: CT ABDOMEN AND PELVIS WITH CONTRAST HISTORY: Abdominal pain. COMPARISON: 03/30/2019. TECHNIQUE AND FINDINGS: Contiguous axial imaging from the level of the lung bases through the pubic symphysis was performed after the uncomplicated administration of 120 cc of intravenous Omnipaque contrast. Coronal and sagittal reconstructions were obtained. Auto mA and/or iterative reconstruction were used to reduce radiation dose. FINDINGS: LOWER THORAX: The lungs bases are clear. No cardiomegaly. LIVER: No focal hepatic lesions. Normal contour. GALLBLADDER AND BILIARY TREE: No gallbladder wall thickening. No biliary dilatation. PANCREAS: No ductal dilation or masses. SPLEEN: No splenomegaly. ADRENAL GLANDS: No adrenal nodules. KIDNEYS: No hydronephrosis, stones, or masses. PELVIS/BLADDER: The urinary bladder is underdistended. GI TRACT: No dilation or wall thickening. A short segment of distended small bowel loop is seen in the mid abdomen. VESSELS: Unremarkable. LYMPH NODES: No lymphadenopathy. PERITONEUM AND RETROPERITONEUM: No free air or fluid. BONES AND SOFT TISSUES: No suspicious lytic or sclerotic bony lesions. Impression No acute intra-abdominal findings. Preliminary Report Dictated by Resident: Melly Palma XR CHEST 1 VW Narrative EXAM: XR CHEST 1 VW CLINICAL INDICATION: chest pain COMPARISON: 09/15/2019 FINDINGS: The lungs are hypoventilated. No focal consolidation, pleural effusion, or pneumothorax. Enlargement of the left atrial appendage. No acute osseous abnormality. Impression No acute cardiopulmonary abnormality. Preliminary Report Dictated by Resident: Max Jeter I, Barry Mckeon MD., have reviewed this study and agree with the above report. Lab Results (24h): Recent Results (from the past 24 hour(s)) CBC WITH DIFF Collection Time: 07/09/20 7:55 PM Result Value Ref Range WBC 10.11 4.20 - 10.70 10*3/L RBC 4.90 4.26 - 5.52 10*6/L HGB 15.0 12.2 - 16.4 g/dL HCT 44.1 38.4 - 49.3 % MCV 90.0 81.7 - 95.6 fL MCH 30.6 26.1 - 32.7 pg MCHC 34.0 31.2 - 35.0 g/dL RDW-SD 42.6 38.5 - 51.6 fL RDW-CV 13.0 12.1 - 15.4 % PLT 328 150 - 328 10*3/L MPV 9.5 (L) 9.8 - 13.0 fL NRBC/100 WBC 0.0 0.0 - 10.0 /100 WBCs NRBC x10^3 <0.01 10*3/L GRAN MAT (NEUT) % 65.5 % IMM GRAN % 0.70 % LYMPH % 26.1 % MONO % 5.7 % EOS % 1.2 % BASO % 0.8 % GRAN MAT x10^3(ANC) 6.62 1.99 - 6.95 10*3/uL IMM GRAN x10^3 0.07 (H) 0.00 - 0.06 10*3/uL LYMPH x10^3 2.64 1.09 - 3.23 10*3/uL MONO x10^3 0.58 0.36 - 1.02 10*3/uL EOS x10^3 0.12 0.06 - 0.53 10*3/uL BASO x10^3 0.08 0.01 - 0.09 10*3/uL COMP. METABOLIC PANEL (03305) Collection Time: 07/09/20 7:55 PM Result Value Ref Range NA 136 135 - 145 mmol/L K 3.4 (L) 3.5 - 5.0 mmol/L CL 98 98 - 108 mmol/L CO2 TOTAL 26 23 - 31 mmol/L AGAP 12 2 - 16 BUN 16 7 - 23 mg/dL GLUCOSE 165 (H) 70 - 110 mg/dL CREATININE 0.94 0.60 - 1.25 mg/dL TOTAL BILI 0.4 0.1 - 1.1 mg/dL CALCIUM 9.7 8.6 - 10.6 mg/dL T PROTEIN 8.2 6.3 - 8.2 g/dL ALBUMIN 4.4 3.5 - 5.0 g/dL ALK PHOS 77 34 - 122 U/L ALTv 31 5 - 50 U/L AST(SGOT) 26 13 - 40 U/L eGFR Calculation (Non-) 88.0 mL/min/1.73m2 eGFR Calculation () 106.7 mL/min/1.73m2 TROPONIN I Collection Time: 07/09/20 7:55 PM Result Value Ref Range TROPONIN I 0.000 <=0.034 ng/mL D-DIMER Collection Time: 07/09/20 7:55 PM Result Value Ref Range D-DIMER <0.27 <0.41 g/mL (FEU) COVID-19 (ID NOW RAPID TESTING) Collection Time: 07/09/20 7:55 PM Specimen: NASOPHARYNGEAL SWAB Result Value Ref Range SARS-CoV-2 Rapid ID NOW Not Detected Not Detected PROTHROMBIN TIME / INR Collection Time: 07/09/20 7:55 PM Result Value Ref Range PROTIME PATIENT 12.4 12.0 - 14.7 Seconds INR 1.0 LIPASE Collection Time: 07/09/20 7:55 PM Result Value Ref Range LIPASE 58 0 - 220 U/L ADC / LCC - DRUG SCREEN TRIAGE Collection Time: 07/09/20 10:13 PM Result Value Ref Range BENZO U Negative Negative HORACIO U Negative Negative AMPHET Negative Negative THC Negative Negative METHADONE Negative Negative Meth U Negative Negative OPIATES Presumptive Positive (A) Negative Cocaine Metabolite Negative Negative PROPOXY Negative Negative Tric U Negative Negative PCP Negative Negative OXYCOD Negative Negative TROPONIN I Collection Time: 07/09/20 10:49 PM Result Value Ref Range TROPONIN I 0.000 <=0.034 ng/mL EKG: interpreted by me Normal axis, Normal intervals, Normal P-waves, Normal QRS complex, Normal sinus rhythm, Normal ST / T waves and Normal 12 - lead EKG Rate 98 Comparison with prior EKG: unchanged Orders and Treatments: Orders Placed This Encounter Procedures XR CHEST [address] ABDOMEN PELVIS W CONTRAST CBC WITH DIFF COMP. METABOLIC PANEL (51217) TROPONIN I D-DIMER COVID-19 (ID NOW RAPID TESTING) PROTHROMBIN TIME / INR LIPASE ADC / LCC - DRUG SCREEN TRIAGE TROPONIN I Orders Placed This Encounter Medications aspirin chewable tablet 324 mg nitroglycerin (NITROSTAT) sublingual tablet 0.4 mg morpHINE injection 4 mg ondansetron (ZOFRAN (PF)) injection 4 mg pantoprazole (PROTONIX) 40 mg in NaCl 0.9% (NS) 100 mL MINI-BAG morpHINE injection 4 mg LORazepam (ATIVAN) injection 1 mg codeine-guaifenesin (ROBITUSSIN AC) 10-100 mg/5 mL solution 10 mL iohexol (OMNIPAQUE 350 BULK-100 mL) injection 120 mL pantoprazole (PROTONIX) 40 mg EC tablet dicyclomine 20 mg tablet benzonatate 200 mg capsule ED COURSE MDM: Coding Diagnosis/Impression: ICD-10-CM ICD-9-CM 1. Epigastric pain R10.13 789.06 2. Chest pain, unspecified type R07.9 786.50 3. Cough R05 786.2 Disposition/Condition: ED Disposition ED Disposition Condition Comment Disch - Home Stable Discharge Medications: Patient's Medications START taking these medications BENZONATATE 200 MG CAPSULE Take 1 capsule by mouth 3 (three) times daily as needed for Cough. DICYCLOMINE 20 MG TABLET Take 1 tablet by mouth every 6 (six) hours as needed for Abdominal pain. PANTOPRAZOLE (PROTONIX) 40 MG EC TABLET Take 1 tablet by mouth daily. CONTINUE taking these medications which have NOT CHANGED CYCLOBENZAPRINE 5 MG TABLET Take 1 tablet by mouth 3 (three) times daily as needed for Muscle Spasms. IBUPROFEN 800 MG TABLET Take 1 tablet by mouth every 8 (eight) hours as needed for Pain (scale 4-6). LEVOTHYROXINE 125 MCG TABLET Take 125 mcg by mouth every morning. LORAZEPAM (ATIVAN) 0.5 MG TABLET Take 1 tablet by mouth 2 (two) times daily as needed for Anxiety. START taking Modified Medications as Prescribed No medications on file STOP taking these medications No medications on file Follow-up: Contact information for follow-up Pcp, Patient Does Not Have A Relationship: PCP - [address] [address] Electronically signed by: Mihaela Contreras MD 07/09/2020 7:47 PM documented in this encounter Miscellaneous Notes ED Nurse Note - Iris Ferguson RN - 07/10/2020 12:37 AM CDTPt discharged with diagnosis of unspecified CP, epigastric pain, and cough. Printed and verbal instructions reviewed with and given to patient. Prescriptions given x3. Pt verbalized understanding of teaching, medications, and recommended follow-up with GI specialist. Denies questions or concerns at this time. Pt ambulatory at discharge, no ataxia noted. Appears in no apparent distress. Patients brother to transport patient home. D Nurse Note - Elsa Castelan RN - 07/09/2020 9:59 PM CDTVeronica from lab called and stated just noticed the D-Dimer order and will run it at this time. D Nurse Note - Iris Ferguson RN - 07/09/2020 8:47 PM CDTVeronica in lab notified of lipase add-on. documented in this encounter Plan of Treatment Name Type Priority Associated Diagnoses Date/Ti me CT ABDOMEN PELVIS W IMAGING STAT Chest pain, unspecifi ed 07/10/2020 12:12 AM CONTRAST type CDT Health Maintenance Due Date Last Done Comments Depression Screening 1989 DTaP,Tdap,and Td Vaccines (1 - 1996 Tdap) INFLUENZA VACCINE (#1) 2020 PNEUMOCOCCAL 0-64 YEARS COMBINED Aged Out No longer eligible based on SERIES patient's age to complete this topic documented as of this encounter Procedures Procedure Name Priority Date/Time Associated Diagnosis Comme nts CT ABDOMEN PELVIS W STAT 07/10/2020 12:12 AM Chest pain, un specified CONTRAST CDT type Procedure Note - [facility], Radia nt Results Inft User - 07/10/2020 12:20 AM CDT EXAM: CT ABDOMEN AND PELVIS WITH CONTRAST HISTORY: Abdominal pain. COMPARISON: 03/30/2019. TECHNIQUE AND FINDINGS: Cont iguous axial imaging from the level of the lung bases through the pubic symp hysis was performed after the uncomplicated administration of 120 cc of intravenous Omnipaque contrast. Coronal and sagittal reconstructions wer e obtained. Auto mA and/or iterative reconstruction were used to reduce radiation dose. FINDINGS: LOWER THORAX: The lungs base s are clear. No cardiomegaly. LIVER: No focal hepatic lesi ons. Normal contour. GALLBLADDER AND BILIARY TREE : No gallbladder wall thickening. No biliary dilatation. PANCREAS: No ductal dilation or masses. SPLEEN: No splenomegaly. ADRENAL GLANDS: No adrenal n odules. KIDNEYS: No hydronephrosis, stones, or masses. PELVIS/BLADDER: The urinary bladder is underdistended. GI TRACT: No dilation or wal l thickening. A short segment of distended small bowel loop is seen in the mid abdomen. VESSELS: Unremarkable. LYMPH NODES: No lymphadenopa thy. PERITONEUM AND RETROPERITONE UM: No free air or fluid. BONES AND SOFT TISSUES: No s uspicious lytic or sclerotic bony lesions. IMPRESSION No acute intra-abdominal fin dings. Preliminary Report Dictated by Resident: Melly Palma TROPONIN I STAT 07/09/2020 10:49 Chest pain, Results for this PM CDT unspecified type procedure a re in the results section. ADC / LCC - DRUG STAT 07/09/2020 10:13 Chest pain, Results for this SCREEN TRIAGE PM CDT unspecified type procedure are in the results section. XR CHEST 1 VW STAT 07/09/2020 8:05 Chest pain, Results fo r this PM CDT unspecified type procedure a re in the results section. COVID-19 (ID NOW STAT 07/09/2020 7:55 Chest pain, Results for this RAPID TESTING) PM CDT unspecified type procedure are in the results section. D-DIMER STAT 07/09/2020 7:55 Chest pain, Results for this PM CDT unspecified type procedure a re in the results section. PROTHROMBIN TIME / STAT 07/09/2020 7:55 Chest pain, Resul ts for this INR PM CDT unspecified type procedure a re in the results section. CBC WITH DIFF STAT 07/09/2020 7:55 Chest pain, Results fo r this PM CDT unspecified type procedure a re in the results section. COMP. METABOLIC STAT 07/09/2020 7:55 Chest pain, Results for this PANEL (25973) PM CDT unspecified type procedure are in the results section. TROPONIN I STAT 07/09/2020 7:55 Chest pain, Results for this PM CDT unspecified type procedure a re in the results section. LIPASE STAT Add-On 07/09/2020 7:55 Chest pain, Results for this PM CDT unspecified type procedure a re in the results section. EKG-12 LEAD Routine 07/09/2020 7:52 PM CDT documented in this encounter Results TROPONIN I (07/09/2020 10:49 PM CDT) Pathologist Sig nature TROPONIN I 0.000 <=0.034 ng/mL [facility] Specimen Blood - VENOUS Narrative Performed At Equal or Less than 0.034 ng/ml---Normal [facility] Note: Cardiac troponin begins to rise 3-4 hours after the onset of ischemia. Repeat in 4-6 hours if the sample was drawn within 3-4 hours of the onset of the symptom and found normal. Between 0.035 and 0.120 ng/mL--- Borderline. Questionable myocardial injury or necros is Note: Serial measurement may be necessary to confirm or exclude the diagnosis of myocardial injury or necrosis; Clinical correlation (symptoms, EKGs, imaging studies, and others) required; Repeat in 4-6 hours if clinically indicated. Equal or Higher than 0.121 ng/mL---Abnormal. Myocardial Injury or Necrosis Likely Biotin has been reported to cause a negative bias, interpret results relative to patient's use of biotin. Performing Organization Address [facility] [place] Phone Number [facility] CLIA: [id number] [place] [address] LABORATORY [address] [facility] ADC / LCC - DRUG SCREEN TRIAGE (07/09/2020 10:13 PM CDT) BENZO U Negative Negative [facility] HORACIO U Negative Negative [facility] AMPHET Negative Negative [facility] THC Negative Negative [facility] METHADONE Negative Negative [facility] Meth U Negative Negative [facility] OPIATES Presumptive Negative [facility] Positive (A) [facility] Cocaine Metabolite Negative Negative [facility] PROPOXY Negative Negative [facility] Tric U Negative Negative [facility] PCP Negative Negative [facility] OXYCOD Negative Negative [facility] Specimen Urine - URINE, CLEAN CATCH Narrative Performed At Urine Drug Cutoff Ranges [facility] Benzodiazepines: 150 ng/mL Barbiturates: 200 ng/mL Amphetamine: 500 ng/mL Cannabinoids: 50 ng/mL Methadone: 200 ng/mL Methamphetamine: 500 ng/mL Opiates: 100 ng/mL or 2000 ng/mL Cocaine: 150 ng/mL Propoxyphene: 300 ng/mL Tricyclics: 300 ng/mL Oxycodone: 100 ng/mL PCP: 25 ng/mL The results are to be used only for medical (i.e., treatment) purposes. Unconfirmed screening results must not be used for non-medical purposes (e.g., employment testing, legal testing). Performing Organization Address [facility] Phone Number [facility] CLIA: [id number] [place] [address] [place] [address] XR CHEST 1 VW (07/09/2020 8:05 PM CDT) Specimen Impressions Performed At PACS/VR/DOSE No acute cardiopulmonary abnormality. Preliminary Report Dictated by Resident: Barry Miller MD., have reviewed this study and agree with the above report. Narrative Performed At EXAM: XR CHEST 1 VW PACS/VR/DOSE CLINICAL INDICATION: chest pain COMPARISON: 09/15/2019 FINDINGS: The lungs are hypoventilated. No focal consolidation, pleural effusion, or pneumothorax. Enlargement of the left atrial appendage . No acute osseous abnormality. Procedure Note [facility], Radiant Results Inft User - 2019 8:45 PM CDT EXAM: XR CHEST 1 VW CLINICAL INDICATION: chest pain COMPARISON: 09/15/2019 FINDINGS: The lungs are hypoventilated. No focal c onsolidation, pleural effusion, or pneumothorax. Enlargement of the left atrial appendage . No acute osseous abnormality. IMPRESSION No acute cardiopulmonary abnormality. Preliminary Report Dictated by Resident: Barry Miller MD., have review ed this study and agree with the above report. Performing Organization Address City/[facility]/Zipcode Phone Number PACS/VR/DOSE LIPASE (07/09/2020 7:55 PM CDT) Pathologist Sig nature LIPASE 58 0 - 220 U/L [facility] LABORATORY Specimen Blood - VENOUS Performing Organization Address City/[facility]/Zipcode Phone Number [facility] CLIA: [id number] [place] [address] LABORATORY [address] [facility] PROTHROMBIN TIME / INR (07/09/2020 7:55 PM CDT) PROTIME PATIENT 12.4 12.0 - 14.7 [facility] LABORATORY INR 1.0Comment: Normal [facility] INR <1.1; Warfarin HOSPITAL Therapeutic range LABORATORY 2.0 to 3.0 or 2.5 to 3.5, depending upon the indications. Specimen Blood - VENOUS Performing Organization Address [facility] Phone Number [facility] CLIA: [id number] [place] [address] LABORATORY [address] [facility] COVID-19 (ID NOW RAPID TESTING) (07/09/2020 7:55 PM CDT) SARS-CoV-2 Rapid ID Not Detected Not Detected [facility] LABORATORY Specimen Swab - NASOPHARYNGEAL SWAB Narrative Performed At ID NOW COVID-19 Assay is an isothermal nucleic [facility] LABORATORY acid amplification test intended for the qualitative detection of nucleic acid from SARS-CoV-2 viral RNA in nasopharyngeal (RFID SPECIALIST) specimens. It is used under Emergency Use Authorization (EUA) by FDA. The limit of detection (LOD) of the assay is 125 Genome Equivalents/mL. A positive result is indicative of the presence of SARS-CoV-2 RNA. Clinical correlation with patient history and other diagnostic information is necessary to determine patient infection status. A negative (Not Detected) result does not preclude SARS-CoV-2 infection. In patients with clinical symptoms and other tests that are consistent with SARS-CoV-2 infection, negative results should be treated as presumptive negative and a new specimen should be tested with alternative PCR molecular test. Invalid: Please collect a new specimen for repeat patient testing if clinically indicated. Performing Organization Address [facility] Phone Number [facility] CLIA: [id number] [place], [place] [address] [address] D-DIMER (07/09/2020 7:55 PM CDT) [facility] Nanali D-DIMER <0.27 <0.41 g/mL (FEU) [facility] LABORATORY Specimen Blood - VENOUS Narrative Performed At This test may be used in conjunction with a [facility] LABORATORY clinical pretest probability (PTP) assessment model to exclude venous thromboembolism (VTE) in patients suspected of deep venous thrombosis (DVT) and pulmonary embolism (PE) A D-Dimer value less than 0.50 g/ml (FEU) has a negative predicative value of 96 to 100% (95% CI)and 97 to 100% (95% CI) as an aid in the diagnosis of deep vein thrombosis (DVT) and pulmonary embolism when there is low or moderate pretest probability of PE or DVT. D-Dimer values are expressed in initial fibrinogen equivalent units (FEU)" The assay results should be used with other information, including the clinical context, in forming a diagnosis. Performing Organization Address City/[facility] Phone Number [facility] CLIA: [id number] [place] [address] TROPONIN I (07/09/2020 7:55 PM CDT) Pathologist Sig nature TROPONIN I 0.000 <=0.034 ng/mL [facility] LABORAT[facility] Specimen Blood - VENOUS Narrative Performed At Equal or Less than 0.034 ng/ml---Normal [facility] LAB[facility] Note: Cardiac troponin begins to rise 3-4 hours after the onset of ischemia. Repeat in 4-6 hours if the sample was drawn within 3-4 hours of the onset of the symptom and found normal. Between 0.035 and 0.120 ng/mL--- Borderline. Questionable myocardial injury or necros is Note: Serial measurement may be necessary to confirm or exclude the diagnosis of myocardial injury or necrosis; Clinical correlation (symptoms, EKGs, imaging studies, and others) required; Repeat in 4-6 hours if clinically indicated. Equal or Higher than 0.121 ng/mL---Abnormal. Myocardial Injury or Necrosis Likely Biotin has been reported to cause a negative bias, interpret results relative to patient's use of biotin. Performing Organization Address City/State/Zipcode Phone Number [facility] CLIA: [id number] [place] [address] COMP. METABOLIC PANEL ([id number]) (07/09/2020 7:55 PM CDT) Pathologist Sig [facility] NA 136 135 - 145 [facility] mmol/L [facility] LABORATORY K 3.4 (L) 3.5 - 5.0 [facility] mmol/L [facility] LABORATORY CL 98 98 - 108 mmol/L [facility] LAB[facility] CO2 TOTAL 26 23 - 31 mmol/L [facility] LAB[facility] AGAP 12 2 - 16 [facility] BUN 16 7 - 23 mg/dL [facility] LAB[facility] GLUCOSE 165 (H) 70 - 110 mg/dL [facility] LAB[facility] CREATININE 0.94 0.60 - 1.25 [facility] mg/dL [facility] LABORATORY TOTAL BILI 0.4 0.1 - 1.1 mg/dL [facility] LABORATORY CALCIUM 9.7 8.6 - 10.6 [facility] mg/dL [facility] LABORATORY T PROTEIN 8.2 6.3 - 8.2 g/dL [facility] LABORATORY ALBUMIN 4.4 3.5 - 5.0 g/dL [facility] LABORAT[facility] ALK PHOS 77 34 - 122 U/L [facility] LAB[facility] ALTv 31 5 - 50 U/L [facility] LAB[facility] AST(SGOT) 26 13 - 40 U/L [facility] LABORATORY eGFR Calculation 88.0 mL/min/1.73m2 [facility] ([facility] LABORATORY [place]) eGFR Calculation 106.7 mL/min/1.73m2 [facility] () [facility] LABORATORY Specimen Blood - VENOUS Narrative Performed At [facility] of Glomerular Filtration Rate (GFR) [facility] LABORATORY and Staging of Kidney Disease* + + +- + | GFR (mL/min/1.73 m2) | With Kidney Damage | Without Kidney Damage + + +- + | >90 | Stage one | Normal + + +- + | 60-89 | Stage two | Decreased GFR + + +- + | 30-59 | Stage three | Stage three + + +- + | 15-29 | Stage four | Stage four + + +- + | <15 (or dialysis) | Stage five | Stage five + + +- + *Each stage assumes the associated GFR level has been in effect for at least three months. Stages 1 to 5, with or without kidney disease, indicate chronic kidney disease. Notes: Determination of stages one and two (with eGFR >59mL/min/1.73 m2) requires estimation of kidney damage for at least three months as defined by structural or functional abnormalities of the kidney, manifested by either: Pathological abnormalities or Markers of kidney damage (including abnormalities in the composition of the blood or urine or abnormalities in imaging tests). Performing Organization Address City/State/Zipcode Phone Number [facility] CLIA: [id number] [place] [address] CBC WITH DIFF (07/09/2020 7:55 PM CDT) Pathologist [facility] nature WBC 10.11 4.20 - 10.70 [facility] 10*3/L [facility] LABORATORY RBC 4.90 4.26 - 5.52 [facility] 10*6/L [facility] LABORATORY HGB 15.0 12.2 - 16.4 [facility] g/dL [facility] LABORATORY HCT 44.1 38.4 - 49.3 % [facility] LAB[facility] MCV 90.0 81.7 - 95.6 fL [facility] LAB[facility] MCH 30.6 26.1 - 32.7 pg [facility] LAB[facility] MCHC 34.0 31.2 - 35.0 [facility] g/dL [facility] LABORATORY RDW-SD 42.6 38.5 - 51.6 fL [facility] LAB[facility] RDW-CV 13.0 12.1 - 15.4 % [facility] LAB[facility] PLT 328 150 - 328 [facility] 10*3/L [facility] LABORATORY MPV 9.5 (L) 9.8 - 13.0 fL [facility] LAB[facility] NRBC/100 WBC 0.0 0.0 - 10.0 /100 [facility] WBCs [facility] LABORATORY NRBC x10^3 <0.01 10*3/L [facility] LAB[facility] GRAN MAT (NEUT) % 65.5 % [facility] LAB[facility] IMM GRAN % 0.70 % [facility] LYMPH % 26.1 % [facility] MONO % 5.7 % [facility] EOS % 1.2 % [facility] BASO % 0.8 % [facility] LAB[facility] GRAN MAT x10^3(ANC) 6.62 1.99 - 6.95 [facility] 10*3/uL [facility] LABORATORY IMM GRAN x10^3 0.07 (H) 0.00 - 0.06 [facility] 10*3/uL [facility] LABORATORY LYMPH x10^3 2.64 1.09 - 3.23 [facility] 10*3/uL [facility] LABORATORY MONO x10^3 0.58 0.36 - 1.02 [facility] 10*3/uL [facility] LABORATORY EOS x10^3 0.12 0.06 - 0.53 [facility] 10*3/uL [facility] LABORATORY BASO x10^3 0.08 0.01 - 0.[address]3/uL [facility] LABORATORY Specimen Blood - VENOUS Performing Organization Address City/State/Zipcode Phone Number [facility] CLIA: [id number] [place], [place] [id number] LABORATORY [address] [facility] documented in this encounter Visit Diagnoses Diagnosis Epigastric pain - Primary Abdominal pain, epigastric Chest pain, unspecified type Cough documented in this encounter Administered Medications Medication Order MAR Action Action Date Dose Rate Site aspirin chewable tablet 324 mg Given 07/09/2020 8:02 PM CDT 324 mg 324 mg, Oral, DAILY, First dose on Fri07/10/20 at 0900, Until Discontinued, Routine Medication Order MAR Action Action Date Dose Rate Site codeine-guaifenesin (ROBITUSSIN Given 07/09/2020 10:23 PM CDT 10 mL AC) 10-100 mg/5 mL solution 10 mL 10 mL, Oral, ONCE, 1 dose, [place] 07/09/20 at 2330, FAWN iohexol (OMNIPAQUE 350 BULK-100 mL) Given 07/10/2020 12:08 AM CD T 120 mL injection 120 mL 120 mL, Intravenous, ONCE, 1 dose, 07/10/20 at 0015, Routine LORazepam (ATIVAN) injection 1 mg Given 07/09/2020 10:14 PM CDT 1 mg 1 mg, Slow IV Push, ONCE, 1 dose, [place] 07/09/20 at 2245, STAT morpHINE injection 4 mg Given 07/09/2020 8:03 PM CDT 4 mg 4 mg, Slow IV Push, ONCE, 1 dose, [place] 07/09/20 at 2100, STAT morpHINE injection 4 mg Given 07/09/2020 10:16 PM CDT 4 mg 4 mg, Slow IV Push, ONCE, 1 dose, [place] 07/09/20 at 2230, STAT nitroglycerin (NITROSTAT) sublingual tablet Given 06/21 8:02 PM CDT 0.4 mg 0.4 mg 0.4 mg, Sublingual, ONCE, 1 dose, [place] 07/09/20 at 2100, FAWN ondansetron (ZOFRAN (PF)) injection 4 mg Given 07/09/2020 8:03 PM CDT 4 mg 4 mg, Slow IV Push, ONCE, 1 dose, [place] 07/09/20 at 2100, FAWN pantoprazole (PROTONIX) 40 mg in NaCl 0.9% Given 07/09/2020 8:3 3 PM CDT 40 mg (NS) 100 mL MINI-BAG 40 mg, IV Piggyback, ONCE, 1 dose, [place] 07/09/20 at 2130, 100 mL documented in this encounter Additional Health Concerns Infection Onset Date Last Indicated Resolved Time COVID-19 Rule Out 07/09/2020 07/09/2020 07/09/2020 8: 36 PM CDT documented as of this encounter
[2020-07-10 22:12] LABS: Absolute Lymphocytes (CBC) 3.2 K/uL (0.7-4.9); Basophils % 0.5 % (0-1.3); Hematocrit 44.8 % (39.6-49.0); Lymphocytes % 27.1 % (15.3-44.8); MPV 7.9 fL (7.6-11.3); Protime INR 0.98; RBC Red Blood Cell Count 4.99 M/uL (4.33-5.43)
[2020-07-10 22:27] LABS: ALT/SGPT 35 U/L (12-78); AST/SGOT 16 U/L (15-37); Alkaline Phosphatase 85 U/L (45-117); BUN Blood Urea Nitrogen 21 mg/dL (7-18); Bicarbonate 26 mmol/L (21-32); Bilirubin Direct < 0.1 mg/dL (0-0.2); Bilirubin Total 0.4 mg/dL (0.2-1.0); Glucose Level 124 mg/dL (74-106); Magnesium 2.2 mg/dL (1.8-2.4); NT PRO-BNP 19 pg/mL (<125); Potassium 3.5 mmol/L (3.5-5.1); Protein, Total 8.5 g/dL (6.4-8.2); Sodium Level 136 mmol/L (136-145); Troponin (Emerg Dept Use Only) < 0.02 ng/mL (0.0-0.045)
[2020-07-10] MEDS ORDERED: ACETAMINOPHEN 500 MG TAB ONE (22:48)
[2020-07-10] MEDS ORDERED: IPRATROPIUM BROM 0.5MG/2.5ML ONE (23:54)
[2020-07-10] MEDS ORDERED: ALBUTEROL 2.5 MG/3 ML NEB SOL ONE (23:55)
--- NOTE | 2020-07-11 01:41 | EDPHYS ---
Physician Documentation [facility] Name: Carrington Dumont Age: 44 yrs Sex: Male : 1975 Arrival Date: 07/10/2020 Time: : Bed 2 Private MD: ED Physician Jamie Wayne HPI: 07/11 05:52 This 44 yrs old Male presents to ER via Ambulatory with complaints of High tw4 Blood Pressure, Breathing Difficulty. 05:52 The patient has elevated blood pressure and discovered this at home. Onset: The tw4 symptoms/episode began/occurred today. Modifying factors: The symptoms are aggravated by. Associated signs and symptoms: Pertinent positives: chest pain, dizziness, headache, lightheadedness. The patient has not experienced similar symptoms in the past. Historical: - Allergies: 07/10 21:42 PENICILLINS; ll1 - PMHx: :42 Hypertension; Hypothyroidism; ll1 - PSHx: 21:42 Tonsillectomy; ll1 - Immunization history:: Adult Immunizations up to date. - Social history:: Smoking status: Patient reports the use of cigarette tobacco products, smokes one-half pack cigarettes per day. ROS: 07/11 05:52 Constitutional: Negative for fever, chills, and weight loss, Eyes: Negative for injury, tw4 pain, redness, and discharge. Respiratory: Negative for shortness of breath, cough, wheezing, and pleuritic chest pain, Abdomen/GI: Negative for abdominal pain, nausea, vomiting, diarrhea, and constipation, Back: Negative for injury and pain, MS/Extremity: Negative for injury and deformity, Skin: Negative for injury, rash, and discoloration. Cardiovascular: Positive for chest pain, Negative for edema, orthopnea, palpitations, paroxysmal nocturnal dyspnea. Neuro: Positive for headache, Negative for altered mental status, dizziness, gait disturbance, tinnitus, tremor. Exam: 05:52 Constitutional: This is a well developed, well nourished patient who is awake, alert, tw4 and in no acute distress. Head/Face: Normocephalic, atraumatic. Chest/axilla: Normal chest wall appearance and motion. Nontender with no deformity. No lesions are appreciated. Cardiovascular: Regular rate and rhythm with a normal S1 and S2. No gallops, murmurs, or rubs. Normal PMI, no JVD. No pulse deficits. Respiratory: Lungs have equal breath sounds bilaterally, clear to auscultation and percussion. No rales, rhonchi or wheezes noted. No increased work of breathing, no retractions or nasal flaring. Abdomen/GI: Soft, non-tender, with normal bowel sounds. No distension or tympany. No guarding or rebound. No evidence of tenderness throughout. Back: No spinal tenderness. No costovertebral tenderness. Full range of motion. MS/ Extremity: Pulses equal, no cyanosis. Neurovascular intact. Full, normal range of motion. Neuro: Awake and alert, GCS 15, oriented to person, place, time, and situation. Cranial nerves II-XII grossly intact. Motor strength 5/5 in all extremities. Sensory grossly intact. Cerebellar exam normal. Normal gait. Vital Signs: 07/10 21:41 BP 118 / 63; Pulse 93; Resp 18; Temp 98.5; Pulse Ox 99% ; Pain 9/10; ll1 07/11 00:16 BP 121 / 74; Pulse 84; Resp 18; Pulse Ox 99% on R/A; mg2 01:37 BP 102 / 62; Pulse 74; Resp 18; Pulse Ox 98% on R/A; mg2 MDM: 07/10 21:46 Patient medically screened. tw4 07/11 05:52 Differential diagnosis: hypertensive crisis, Malignant HTN. Data reviewed: vital signs, tw4 nurses notes. Data reviewed: lab test result(s), CBC, electrolytes, hepatic panel, EKG, radiologic studies, plain films. Data interpreted: Pulse oximetry: Interpretation: normal. Test interpretation: by ED physician or midlevel provider: ECG, plain radiologic studies. Counseling: I had a detailed discussion with the patient and/or guardian regarding: the historical points, exam findings, and any diagnostic results supporting the discharge/admit diagnosis, lab results, radiology results. Special discussion: Based on the patient's history, exam, and Dx evaluation, there is no indication for emergent intervention or inpatient Tx. It is understood by the patient/guardian that if the Sx's persist or worsen they need to return immediately for re-evaluation. I discussed with the patient/guardian in detail that at this point there is no indication for admission to the hospital. It is understood, however, that if the symptoms persist or worsen the patient needs to return immediately for re-evaluation. 07/10 21:49 Order name: Basic Metabolic Panel; Complete Time: 22:32 [facility] 07/10 22:32 Interpretation: Normal except: GLUC 124; BUN 21; GFR 84. [facility] 07/10 21:49 Order name: CBC with Diff; Complete Time: 22:32 [facility] 07/10 22:33 Interpretation: Normal except: WBC 11.8. [facility] 07/10 21:49 Order name: LFT's; Complete Time: 22:32 [facility] 07/10 22:33 Interpretation: Normal except: TP 8.5; GLOB 4.5; A/G 0.9. [facility] 07/10 21:49 Order name: Magnesium; Complete Time: 22:32 [facility] 07/10 22:33 Interpretation: Normal except: MG 2.2. [facility] 07/10 21:49 Order name: NT PRO-BNP; Complete Time: 22:32 [facility] 07/10 22:33 Interpretation: Within normal limits: NT PRO-BNP 19. 07/10 21:49 Order name: PT-INR; Complete Time: 22:32 [facility] 07/10 22:33 Interpretation: Within normal limits: PT 11.6. [facility] 07/10 21:49 Order name: Troponin (emerg Dept Use Only); Complete Time: 22:32 [facility] 07/10 22:33 Interpretation: Within normal limits: TROPED < 0.02. [facility] 07/10 21:49 Order name: XRAY Chest (1 view) [facility] 07/10 21:49 Order name: EKG; Complete Time: 21:50 [facility] 07/10 23:33 Order name: COVID-19 [facility] 07/11 00:27 Order name: Troponin (emerg Dept Use Only) [facility] 07/10 21:49 Order name: Cardiac monitoring; Complete Time: 22:07 [facility] 07/10 21:49 Order name: EKG - Nurse/Tech; Complete Time: 22:07 [facility] 07/10 21:49 Order name: IV Saline Lock; Complete Time: 22:07 [facility] 07/10 21:49 Order name: Labs collected and sent; Complete Time: 22:07 [facility] 07/10 21:49 Order name: O2 Per Protocol; Complete Time: 22:07 [facility] 07/10 21:49 Order name: O2 Sat Monitoring; Complete Time: 22:07 mg2 07/10 23:33 Order name: O2 Per Protocol; Complete Time: 00:48 tw4 EC:52 Rate is 84 beats/min. Rhythm is regular. QRS Vance is Normal. OR interval is normal. QRS tw4 interval is normal. QT interval is normal. No Q waves. T waves are Normal. No ST changes noted. Clinical impression: Normal ECG. Interpreted by me. Reviewed by me. Administered Medications: 07/10 22:38 Drug: Tylenol 1000 mg Route: PO; mg2 23:30 Follow up: Response: No adverse reaction; Marked relief of symptoms mg2 Disposition: 07/11/20 01:40 Discharged to Home. Impression: Other chest pain. - Condition is Stable. - Discharge Instructions: Nonspecific Chest Pain, Pain Without a Known Cause. - Medication Reconciliation Form, Thank You Letter, Antibiotic Education, Prescription Opioid Use form. - Follow up: Private Physician; When: Upon discharge from the Emergency Department; Reason: Recheck today's complaints, Continuance of care, Re-evaluation by your physician. Follow up: Arsenio Urbina MD; When: Upon discharge from the Emergency Department; Reason: Recheck today's complaints, Continuance of care, Re-evaluation by your physician. Follow up: Jb Clarke MD; When: Upon discharge from the Emergency Department; Reason: Recheck today's complaints, Continuance of care, Re-evaluation by your physician. - Problem is new. - Symptoms have improved. Signatures: Dispatcher [employer] EDMS Jamie Wayne MD MD tw4 Orville Valle RN RN mg2 Erendira Pryor RN RN ll1 Corrections: (The following items were deleted from the chart) 07/11 00:47 07/10 23:33 Document PUI# ordered. 4 07/11 00:48 07/10 23:33 Droplet/Contact Precautions ordered. 07/11 00:48 07/10 23:33 Labs collected and sent ordered. 07/11 01:41 01:40 07/11/2020 01:40 Discharged to Home. Impression: Other chest pain. Condition is tw4 Stable. Forms are Medication Reconciliation Form, Thank You Letter, Antibiotic Education, Prescription Opioid Use. Follow up: Private Physician; When: Upon discharge from the Emergency Department; Reason: Recheck today's complaints, Continuance of care, Re-evaluation by your physician. Problem is new. Symptoms have improved. tw4 01:50 01:41 07/11/2020 01:40 Discharged to Home. Impression: Other chest pain. Condition is mg2 Stable. Discharge Instructions: Nonspecific Chest Pain, Pain Without a Known Cause. Forms are Medication Reconciliation Form, Thank You Letter, Antibiotic Education, Prescription Opioid Use. Follow up: Private Physician; When: Upon discharge from the Emergency Department; Reason: Recheck today's complaints, Continuance of care, Re-evaluation by your physician. Follow up: Arsenio Urbina; When: Upon discharge from the Emergency Department; Reason: Recheck today's complaints, Continuance of care, Re-evaluation by your physician. Follow up: Jb Clarke; When: Upon discharge from the Emergency Department; Reason: Recheck today's complaints, Continuance of care, Re-evaluation by your physician. Problem is new. Symptoms have improved. tw4
--- NOTE | 2020-07-11 01:41 | ER ---
Nurse's Notes [facility] Name: Carrington Dumont Age: 44 yrs Sex: Male : 1975 Arrival Date: 07/10/2020 Time: : Bed 2 Private MD: Diagnosis: Other chest pain Presentation: 07/10 21:41 Chief complaint: Patient states: BP 180/120 at home today. Noticed SOB and and chest ll1 tightness since yesterday. Coronavirus screen: Client denies travel out of the [place] in the last 14 days. At this time, the client does not indicate any symptoms associated with coronavirus-19. Ebola Screen: Patient denies travel to an Ebola-affected area in the 21 days before illness onset. Initial Sepsis Screen: Does the patient meet any 2 criteria? HR > 90 bpm. Risk Assessment: Do you want to hurt yourself or someone else? Patient reports no desire to harm self or others. Onset of symptoms was July 09, 2020. 21:41 Method Of Arrival: Ambulatory [facility] 21:41 Acuity: DAYANNA 3 ll1 07/11 00:03 Initial Sepsis Screen: Does the patient have a suspected source of infection? No. mg2 Patient's initial sepsis screen is negative. Triage Assessment: 00:03 General: Behavior is calm, cooperative. Respiratory: Onset: The symptoms/episode mg2 began/occurred gradually, the patient has mild shortness of breath. Historical: - Allergies: 07/10 21:42 PENICILLINS; ll1 - PMHx: 21:42 Hypertension; Hypothyroidism; ll1 - PSHx: 21:42 Tonsillectomy; ll1 - Immunization history:: Adult Immunizations up to date. - Social history:: Smoking status: Patient reports the use of cigarette tobacco products, smokes one-half pack cigarettes per day. Screenin/22 00:03 Abuse screen: Denies threats or abuse. Denies injuries from another. Nutritional mg2 screening: No deficits noted. Tuberculosis screening: No symptoms or risk factors identified. Fall Risk IV access (20 points). Assessment: 07/10 22:00 General: Appears in no apparent distress. comfortable. mg2 22:00 Cardiovascular: Rhythm is regular. Respiratory: Airway is patent Respiratory effort is mg2 even, unlabored, Respiratory pattern is regular, symmetrical, Breath sounds are clear. Respiratory: Reports shortness of breath at rest. GI: No signs and/or symptoms were reported involving the gastrointestinal system. : No signs and/or symptoms were reported regarding the genitourinary system. EENT: No signs and/or symptoms were reported regarding the EENT system. Derm: Skin is intact, is healthy with good turgor, Skin is pink, warm \T\ dry. normal. Musculoskeletal: Circulation, motion, and sensation intact. Capillary refill < 3 seconds. 22:15 Pain: Complains of pain in chest. Neuro: Level of Consciousness is awake, alert, obeys mg2 commands, Oriented to person, place, time, situation. 07/11 00:16 Reassessment: Patient appears in no apparent distress at this time. Patient and/or mg2 family updated on plan of care and expected duration. Pain level reassessed. Patient is alert, oriented x 3, equal unlabored respirations, skin warm/dry/pink. 00:17 Reassessment: covid, flu and strep test cancelled by the provider. patient already mg2 tested negative for covid yesterday. 01:37 Reassessment: Patient appears in no apparent distress at this time. Patient and/or mg2 family updated on plan of care and expected duration. Pain level reassessed. Patient is alert, oriented x 3, equal unlabored respirations, skin warm/dry/pink. Vital Signs: 07/10 21:41 BP 118 / 63; Pulse 93; Resp 18; Temp 98.5; Pulse Ox 99% ; Pain 9/10; ll1 07/11 00:16 BP 121 / 74; Pulse 84; Resp 18; Pulse Ox 99% on R/A; mg2 01:37 BP 102 / 62; Pulse 74; Resp 18; Pulse Ox 98% on R/A; mg2 ED Course: 07/10 21:22 Patient arrived in ED. cl3 21:42 Triage completed. ll1 21:43 Arm band placed on. ll1 21:46 Jamie Wayne MD is Attending Physician. tw4 21:49 Orville Valle, VIOLET is Primary Nurse. mg2 22:00 Inserted saline lock: 20 gauge in left antecubital area, using aseptic technique. Blood mg2 collected. 22:05 XRAY Chest (1 view) In Process Unspecified. EDMS 07/11 00:03 Patient has correct armband on for positive identification. mg2 00:03 No provider procedures requiring assistance completed. mg2 01:41 Arsenio Urbina MD is Referral Physician. tw4 01:41 Jb Clarke MD is Referral Physician. tw4 01:50 IV discontinued, intact, bleeding controlled, No redness/swelling at site. Pressure mg2 dressing applied. Administered Medications: 07/10 22:38 Drug: Tylenol 1000 mg Route: PO; mg2 23:30 Follow up: Response: No adverse reaction; Marked relief of symptoms mg2 Outcome: 07/11 01:40 Discharge ordered by . tw4 01:50 Discharged to home ambulatory, with family. mg2 01:50 Condition: stable 01:50 Discharge instructions given to patient, family, Instructed on discharge instructions, follow up and referral plans. Demonstrated understanding of instructions, follow-up care. 01:50 Patient left the ED. mg2 Signatures: Dispatcher [employer] EDJamie Crabtree MD MD tw4 Orville Valle RN RN mg2 German Pryor cl3 Erendira Pryor RN RN ll1 Corrections: (The following items were deleted from the chart) 00:03 07/10 22:15 General: Appears in no apparent distress. comfortable, mg2 mg2
[2020-07-11 01:59] VITALS: TEMP 98.5
[2020-07-11 02:01] VITALS: BP 102/62; O2SAT 98
--- NOTE | 2020-07-11 07:01 | RAD REPORT ---
EXAM DESCRIPTION: RAD - Chest Single View - 07/10/2020 10:05 pm CLINICAL HISTORY: CHEST PAIN COMPARISON: Portable August 2019 TECHNIQUE: AP portable chest image was obtained 07/10/2020 10:05 pm . FINDINGS: Lungs are clear. Heart and vasculature are normal. No measurable pleural effusion and no p neumothorax. No acute bony abnormality seen. No acute aortic findings suspected. IMPRESSION: No acute cardiopulmonary process. No suspicious change comparison.
--- NOTE | 2020-07-11 12:17 | EKG ---
Test Date: 2020-07-10 Test Time: 22:02:56 Palliative Senior Np: MEASUREMENT RESULTS: Intervals: Rate: 84 [place]: 114 QRSD: 82 QT: 358 QTc: 423 [place]: P: 70 [place]: 114 QRS: 82 T: 51 INTERPRETIVE STATEMENTS: Normal sinus rhythm Normal ECG Compared to ECG 09/17/2019 02:13:29 T-wave abnormality no longer present Electronically Signed On 07-11-20 12:15:05 CDT by Jb Clarke
== END 2020-07-11 01:50 | disposition home or self-care (01) ==
LOC: ER 21:22
DX: R07.89 Other chest pain (principal); I10 Essential (primary) hypertension; F17.210 Nicotine dependence, cigarettes, uncomplicated; Z88.0 Allergy status to penicillin
CPT/HCPCS: 36415; 71045; 80048; 80076; 83735; 83880; 84484; 85025; 85610; 93005; 99284

== ENCOUNTER 2021-04-24 08:07 | Emergency (ER) | payer SELFPAY ==
--- OUTSIDE RECORDS SUMMARY | 2021-04-24 08:18 | XMS REPORT | Continuity of Care Document ---
:1975 Author Organization [facility] t Address [address] [place] [address] Care Team Providers Name Role Phone Clau Contreras MD Attending Clinician Singer DELA CRUZ Attending Clinician Haily Goss Attending Clinician Doctor Unassigned, Name Attending Clinician Unavailable Dejon PLAZA Attending Clinician Oneal PLAZA Attending Clinician Oneal PLAZA Admitting Clinician Problems This patient has no known problems. Allergies, Adverse Reactions, Alerts This patient has no known allergies or adverse reactions. Medications This patient has no known medications. Procedures This patient has no known procedures. Encounters Start End Encounter Admission Attending Care Care Encounter Source Date/Time Date/Time Type Type Clinicians Facility Department ID 2021-03-14 2021-03-15 Emergency [place] [id number] 21:49:00 01:22:00 Mihaela Landeros [id number] [place] [id number] [place] [address] [id number] 2020-09-08 2020-09-08 [place] [id number] 16:52:00 18:13:00 Saqib Landeros [id number] [place] [id number] [place] [address] [id number] 2020-09-06 2020-09-06 Emergency Nidia Sosa [facility] [id number] 09:52:00 13:38:00 Haily Landeros [id number] [place] [id number] [place] [id number] 2020-09-06 2020-09-06 Orders Doctor MICHELLE [id number] 00:00:00 00:00:00 Only UnassMARNI wooten [id number] [place] [facility] [id number] 2020-08-26 2020-08-30 Emergency Jose Ashford [facility] [id number] 23:45:00 08:05:00 Gricelda No [id number] [place] [id number] [place] [id number] 2020-07-09 2020-07-10 Emergency Ben [facility] [id number] 19:41:00 00:40:00 Mihaela Landeros [id number] [place] [id number] [place] [id number] Results This patient has no known results.
[2021-04-24 09:00] LABS: Urine Blood Negative (Negative); Urine Glucose Negative (Negative); Urine Protein Negative (Negative); Urine Specific Gravity 1.025 (1.005-1.030)
[2021-04-24 09:11] LABS: Absolute Lymphocytes (CBC) 2.2 K/uL (0.7-4.9); Basophils % 0.9 % (0-1.3); Hematocrit 42.8 % (39.6-49.0); Lymphocytes % 25.4 % (15.3-44.8); MPV 8.2 fL (7.6-11.3); RBC Red Blood Cell Count 4.81 M/uL (4.33-5.43)
[2021-04-24 09:13] LABS: Protime INR 0.97
[2021-04-24 09:26] LABS: ALT/SGPT 43 U/L (12-78); AST/SGOT 18 U/L (15-37); Albumin 3.9 g/dL (3.4-5.0); Alkaline Phosphatase 89 U/L (45-117); BUN Blood Urea Nitrogen 12 mg/dL (7-18); Bicarbonate 24 mmol/L (21-32); Bilirubin Direct < 0.1 mg/dL (0-0.2); Bilirubin Total 0.4 mg/dL (0.2-1.0); Glucose Level 123 mg/dL (74-106); Lipase 86 U/L (73-393); Magnesium 2.1 mg/dL (1.8-2.4); NT PRO-BNP 19 pg/mL (<125); Potassium 4.1 mmol/L (3.5-5.1); Protein, Total 8.3 g/dL (6.4-8.2); Sodium Level 137 mmol/L (136-145); Troponin (Emerg Dept Use Only) 0.02 ng/mL (0.0-0.045)
--- NOTE | 2021-04-24 09:27 | RAD REPORT ---
EXAM DESCRIPTION: CT - Head Brain Wo Cont - 04/24/2021 9:12 am CLINICAL HISTORY: Dizziness, headache COMPARISON: None. TECHNIQUE: Axial 5 mm thick images of the head were obtained without IV contrast. All CT scans are performed using dose optimization technique as appropriate and may include automated exposure control or mA/KV adjustment according to patient size. FINDINGS: No intracranial hemorrhage, mass, edema or shift of mid-line structures. No acute infarcti on changes seen. No abnormal extra-axial fluid collections. Mastoid air cells and visualized portions of the paranasal sinuses are clear. No acute bony findings. IMPRESSION: Negative non-contrast CT head examination.
--- NOTE | 2021-04-24 09:34 | RAD REPORT ---
EXAM DESCRIPTION: CT - Chest Abdomen Pelvis W Cont - 04/24/2021 9:16 am CLINICAL HISTORY: Abdominal distention, chest pain COMPARISON: None. TECHNIQUE: Axial [address] head images were obtained. Axial [address] cervical spine images were obtaine d with sagittal and coronal reconstruction images reviewed. During dynamic enhancement of 100mL non-i onic contrast, axial 5 mm images of the chest, abdomen and pelvis were obtained. All CT scans are performed using dose optimization technique as appropriate and may include automated exposure control or mA/KV adjustment according to patient size. FINDINGS: CT chest shows no pneumothorax, pulmonary contusion or pleural fluid collection. No mediastinal hemat bertha and the aorta and pulmonary arteries are unremarkable. No chest will mass or abnormal axillary fi nding. No displaced rib fracture or other significant bony finding. CT abdomen and pelvis show no injury to solid abdominal viscera. Hepatic steatosis. Cholecystectomy No bowel injury or significant finding. No free air, free fluid or abnormal stranding. No urinary luz elena dder abnormality. No significant bony finding. IMPRESSION: No acute findings within the chest, abdomen, or pelvis.
--- NOTE | 2021-04-24 09:43 | ER ---
Nurse's Notes [facility] Name: Carrington Dumont Age: 45 yrs Sex: Male : 1975 Arrival Date: 04/24/2021 Time: 08:10 Bed 6 Private MD: Diagnosis: Headache;Abdominal tenderness;Obesity, unspecified Presentation: 04/24 08:11 Chief complaint: Patient states: headache all over, generalized weakness, dizziness, sv SOB started 0100. Went to bed around 2100. Coronavirus screen: Client denies travel out of the [place] in the last 14 days. At this time, the client does not indicate any symptoms associated with coronavirus-19. Ebola Screen: No symptoms or risks identified at this time. Risk Assessment: Do you want to hurt yourself or someone else? Patient reports no desire to harm self or others. Onset of symptoms was April 24, 2021 at 01:00. 08:11 Method Of Arrival: Ambulatory sv 08:11 Acuity: DAYANNA 3 sv 08:13 Initial Sepsis Screen: Does the patient meet any 2 criteria? RR > 20 per min. HR > 90 sv bpm. Yes Does the patient have a suspected source of infection? No. Patient's initial sepsis screen is negative. 08:13 Care prior to arrival: Medication(s) given: Tylenol. sv Triage Assessment: 08:14 General: Appears in no apparent distress. uncomfortable, Behavior is calm, cooperative, sv appropriate for age. Pain: Complains of pain in face and scalp Pain currently is 10 out of 10 on a pain scale. Pain began 0100 this morning Also complains of shortness of breath. Neuro: Level of Consciousness is awake, alert, obeys commands, Oriented to person, place, time, situation, Moves all extremities. Full function Gait is steady, Speech is normal, Facial symmetry appears normal. Respiratory: Airway is patent Respiratory effort is even, unlabored, Respiratory pattern is regular, symmetrical. Historical: - Allergies: 08:12 PENICILLINS; sv - PMHx: 08:12 Hypertension; Hypothyroidism; sv - Immunization history:: Client reports receiving the 2nd dose of the Covid vaccine, Client reports receiving the 1st dose of the Covid vaccine. - Social history:: Smoking status: Patient reports the use of cigarette tobacco products, denies chronic smoking, but will smoke occasionally. - Family history:: not pertinent. Screenin:20 Abuse screen: Denies threats or abuse. Denies injuries from another. Nutritional bp screening: No deficits noted. Tuberculosis screening: No symptoms or risk factors identified. Fall Risk None identified. Assessment: 08:20 General: SEE TRIAGE NOTE. bp Vital Signs: 08:13 BP 122 / 75; Pulse 91; Resp 22; Temp 97.1; Pulse Ox 99% ; Weight 113.4 kg; Height 5 ft. sv 8 in. (172.72 cm); Pain 10/10; 08:13 Body Mass Index 38.01 (113.40 kg, 172.72 cm) sv [place] Coma Score: 08:39 Eye Response: spontaneous(4). Verbal Response: oriented(5). Motor Response: obeys michelle commands(6). Total: 15. ED Course: 08:10 Patient arrived in ED. wm 08:11 Arm band placed on. sv 08:12 Triage completed. sv 08:19 Max Rider, RN is Primary Nurse. bp 08:20 Patient has correct armband on for positive identification. Placed in gown. Bed in low bp position. Call light in reach. Side rails up X2. 08:24 Marc Flores MD is Attending Physician. michelle 09:01 EKG done, by ED staff, reviewed by Marc Flores MD. formerly [facility] 09:12 CT Head Brain wo Cont In Process Unspecified. EDMS 09:16 CT Chest, Abdomen, Pelvis - W/Contrast In Process Unspecified. EDMS 09:17 XRAY Chest (1 view) In Process Unspecified. EDMS 09:42 Wolf Flores MD is Referral Physician. michelle 11:11 LFT's Sent. sv 11:11 CBC with Diff Sent. sv 11:11 Basic Metabolic Panel Sent. sv Administered Medications: No medications were administered Outcome: 09:43 Discharge ordered by . michelle 11:32 Patient left the ED. aa5 Signatures: Dispatcher [employer] Radha Mccurdy, Marc Rueda RN, MD MD cha Calderon, Audri, RN RN aa5 Viky Mcdonnell [facility] Max Rider, Eduarda Olivares RN Corrections: (The following items were deleted from the chart) 08:13 08:12 Social history: Smoking status: Patient denies any tobacco usage or history of. svsv 08:15 08:13 Pulse 91bpm; Resp 22bpm; Pulse Ox 99%; Temp 97.1F; 113.4 kg; Height 5 ft. 8 in.; sv BMI: 38.0; sv 09:01 08:10 EKG done, by ED staff, reviewed by Marc Flores MD dh3 dh3
--- NOTE | 2021-04-24 09:43 | EDPHYS ---
Physician Documentation [facility] Name: Carrington Dumont Age: 45 yrs Sex: Male : 1975 Arrival Date: 04/24/2021 Time: 08:10 Bed 6 Private MD: CAMERON Physician Marc Flores HPI: 04/24 08:37 This 45 yrs old Male presents to ER via Ambulatory with complaints of Headache michelle > 24hrs Old. 08:37 The patient complains of pain to the top of head, forehead, left frontal area, left michelle side of the back of head, left occipital area, left base of the skull, right frontal area, right side of the back of head, right occipital area and right base of the skull. The patient describes the headache as aching. Onset: The symptoms/episode began/occurred last night. Associated signs and symptoms: Pertinent positives: nausea. Severity of symptoms: At its worst the pain was mild, moderate, in the emergency department the pain is unchanged. 08:38 The patient or guardian reports chest pain that is located primarily in the substernal michelle area. Onset: last night. The patient presents with abdominal pain in the upper abdomen, in the lower abdomen. Onset: The symptoms/episode began/occurred last night. The pain does not radiate. Headache History: Denies prior headaches. Historical: - Allergies: 08:12 PENICILLINS; sv - PMHx: 08:12 Hypertension; Hypothyroidism; sv - Immunization history:: Client reports receiving the 2nd dose of the Covid vaccine, Client reports receiving the 1st dose of the Covid vaccine. - Social history:: Smoking status: Patient reports the use of cigarette tobacco products, denies chronic smoking, but will smoke occasionally. - Family history:: not pertinent. ROS: 08:38 Constitutional: Negative for fever, chills, and weight loss, Eyes: Negative for injury, michelle pain, redness, and discharge, ENT: Negative for injury, pain, and discharge, Neck: Negative for injury, pain, and swelling, Respiratory: Negative for shortness of breath, cough, wheezing, and pleuritic chest pain, Back: Negative for injury and pain, : Negative for injury, bleeding, discharge, and swelling, MS/Extremity: Negative for injury and deformity, Skin: Negative for injury, rash, and discoloration, Psych: Negative for depression, anxiety, suicide ideation, homicidal ideation, and hallucinations, Allergy/Immunology: Negative for hives, rash, and allergies, Endocrine: Negative for neck swelling, polydipsia, polyuria, polyphagia, and marked weight changes. 08:38 Cardiovascular: Positive for chest pain. 08:38 Respiratory: Positive for cough. 08:38 Abdomen/GI: Positive for abdominal pain. Exam: 08:38 Constitutional: This is a well developed, well nourished patient who is awake, alert, michelle and in no acute distress. Head/Face: Normocephalic, atraumatic. Eyes: Pupils equal round and reactive to light, extra-ocular motions intact. Lids and lashes normal. Conjunctiva and sclera are non-icteric and not injected. Cornea within normal limits. Periorbital areas with no swelling, redness, or edema. ENT: Nares patent. No nasal discharge, no septal abnormalities noted. Tympanic membranes are normal and external auditory canals are clear. Oropharynx with no redness, swelling, or masses, exudates, or evidence of obstruction, uvula midline. Mucous membranes moist. Neck: Trachea midline, no thyromegaly or masses palpated, and no cervical lymphadenopathy. Supple, full range of motion without nuchal rigidity, or vertebral point tenderness. No Meningismus. Chest/axilla: Normal chest wall appearance and motion. Nontender with no deformity. No lesions are appreciated. Cardiovascular: Regular rate and rhythm with a normal S1 and S2. No gallops, murmurs, or rubs. Normal PMI, no JVD. No pulse deficits. Respiratory: Lungs have equal breath sounds bilaterally, clear to auscultation and percussion. No rales, rhonchi or wheezes noted. No increased work of breathing, no retractions or nasal flaring. Abdomen/GI: Soft, non-tender, with normal bowel sounds. No distension or tympany. No guarding or rebound. No evidence of tenderness throughout. Back: No spinal tenderness. No costovertebral tenderness. Full range of motion. Male : Normal genitalia with no discharge or lesions. Skin: Warm, dry with normal turgor. Normal color with no rashes, no lesions, and no evidence of cellulitis. MS/ Extremity: Pulses equal, no cyanosis. Neurovascular intact. Full, normal range of motion. Neuro: Awake and alert, GCS 15, oriented to person, place, time, and situation. Cranial nerves II-XII grossly intact. Motor strength 5/5 in all extremities. Sensory grossly intact. Cerebellar exam normal. Normal gait. Psych: Awake, alert, with orientation to person, place and time. Behavior, mood, and affect are within normal limits. 08:38 Neck: ROM/movement: is normal, no acute changes, Meningeal signs: are not present, Kernig's sign is negative, Brudzinski's sign is negative, nuchal rigidity, is not appreciated. 08:38 Musculoskeletal/extremity: ROM: no acute changes, intact in all extremities, full active range of motion, full passive range of motion, Circulation is intact in all extremities. Sensation intact. Compartment Syndrome exam of affected extremity: is normal. DVT Exam: No signs of deep vein thrombosis. no pain, no swelling, no tenderness, negative Homans' sign noted on exam, no appreciated bluish discoloration, no erythema, no increased warmth. 09:03 ECG was reviewed by the Attending Physician. [facility] Vital Signs: 08:13 BP 122 / 75; Pulse 91; Resp 22; Temp 97.1; Pulse Ox 99% ; Weight 113.4 kg; Height 5 ft. sv 8 in. (172.72 cm); Pain 10/10; 08:13 Body Mass Index 38.01 (113.40 kg, 172.72 cm) sv [place] Coma Score: 08:39 Eye Response: spontaneous(4). Verbal Response: oriented(5). Motor Response: obeys [facility] commands(6). Total: 15. MDM: 08:28 Patient medically screened. [facility] 08:39 Differential diagnosis: cluster headache, abnormal EKG, anxiety, coronary artery michelle disease hypertensive headache, hyponatremia, intracerebral hemorrhage, migraine, tension headache. HEART Score: History: Slightly Suspicious (0), ECG: Non specific repolarization disturbance / LBTB / PM (1), Age: < or = 45 years (0), Risk Factors: > or = 3 Risk factors for atherosclerotic disease (2), [Hypertension] [+ Family HX] [Obesity] Troponin: < or = 1 x Normal Limit (0). The patient was not given aspirin in the Emergency Department. Not indicated due to patient's past medical history. The patient's deep vein thrombosis risk score was calculated as follows: Total Score: 0. This patient was found to be at low risk for a deep vein thrombosis by using the Well's assessment criteria. The patient's pulmonary embolism risk score was calculated as follows: Total Score: 0-2 points. This patient was found to be at low risk for a pulmonary embolism by using the Well's assessment criteria. SAVI Risk Score: TOTAL SCORE = 0. Data reviewed: vital signs, nurses notes, lab test result(s), EKG, radiologic studies, CT scan, plain films. Data interpreted: vehicle monitor technician: rate is 91 beats/min, rhythm is regular, Pulse oximetry: on room air. Test interpretation: by ED physician or midlevel provider: ECG, plain radiologic studies. 04/24 08:36 Order name: Basic Metabolic Panel [facility] 04/24 08:36 Order name: CBC with Diff [facility] 04/24 08:36 Order name: LFT's [facility] 04/24 08:36 Order name: Magnesium; Complete Time: 09:39 [facility] 04/24 08:36 Order name: NT PRO-BNP; Complete Time: 09:39 [facility] 04/24 08:36 Order name: PT-INR; Complete Time: 09:39 [facility] 04/24 08:36 Order name: Troponin (emerg Dept Use Only); Complete Time: 09:39 [facility] 04/24 08:36 Order name: Lipase; Complete Time: 09:39 [facility] 04/24 08:36 Order name: Urine Culture [facility] 04/24 08:36 Order name: COVID-19 : Document "Date of Symptom Onset" if Symptomatic. [facility] 04/24 08:36 Order name: Lactate; Complete Time: 09:39 [facility] 04/24 08:36 Order name: Basic Metabolic Panel; Complete Time: 09:39 EDIN 04/24 08:36 Order name: CBC with Automated Diff; Complete Time: 09:39 EDIN 04/24 08:36 Order name: Liver (Hepatic) Function; Complete Time: 09:39 EDIN 04/24 08:36 Order name: XRAY Chest (1 view) [facility] 04/24 08:36 Order name: EKG; Complete Time: 08:36 [facility] 04/24 08:36 Order name: Cardiac monitoring; Complete Time: 09:01 [facility] 04/24 08:36 Order name: EKG - Nurse/Tech; Complete Time: 09:01 [facility] 04/24 08:36 Order name: IV Saline Lock; Complete Time: 09:01 [facility] 04/24 08:36 Order name: Labs collected and sent; Complete Time: 09:01 [facility] 04/24 08:36 Order name: O2 Per Protocol; Complete Time: 08:38 [facility] 04/24 08:36 Order name: O2 Sat Monitoring; Complete Time: 08:38 [facility] 04/24 08:36 Order name: Urine Dipstick-Ancillary (obtain specimen); Complete Time: 09:33 [facility] 04/24 08:36 Order name: CT Head Brain wo Cont; Complete Time: 09:39 [facility] 04/24 08:36 Order name: CT Chest, Abdomen, Pelvis - W/Contrast; Complete Time: 09:39 [facility] 04/24 09:00 Order name: Urine Dipstick-Ancillary; Complete Time: 09:39 EDMS 04/24 10:13 Order name: CREATININE WHOLE BLOOD EDMS EC:03 Rate is 80 beats/min. Rhythm is regular. QRS [place] is Normal. HI interval is normal. QRS michelle interval is normal. QT interval is normal. No Q waves. T waves are Normal. No ST changes noted. Clinical impression: NSR w/ Non-specific ST/T Changes and No evidence of ischemia. Interpreted by me. Reviewed by me. Administered Medications: No medications were administered Disposition Summary: 04/24/21 09:43 Discharge Ordered Location: Home michelle Problem: new michelle Symptoms: have improved michelle Condition: Stable michelle Diagnosis - Headache michelle - Abdominal tenderness michelle - Obesity, unspecified michelle Followup: michelle - With: Private Physician - When: 2 - 3 days - Reason: Recheck today's complaints, Continuance of care, Re-evaluation by your physician Followup: michelle - With: Wolf Flores MD - When: 2 - 3 days - Reason: Recheck today's complaints, Re-evaluation by your physician Discharge Instructions: - Discharge Summary Sheet michelle - General Headache Without Cause michelle - Obesity, Adult michelle - Aspirin and Your Heart michelle - General Headache Without Cause, [id number] michelle - Obesity, Adult, [id number] michelle Forms: - Medication Reconciliation Form michelle - Thank You Letter michelle - Antibiotic Education michelle - Prescription Opioid Use michelle Prescriptions: - Ibuprofen 600 mg Oral Tablet - take 1 tablet by ORAL route every 6 hours As needed take with food; 20 tablet; [facility] Refills: 0, Product Selection Permitted - Zofran 4 mg Oral Tablet - take 1 tablet by ORAL route every 12 hours As needed; 15 tablet; Refills: 0, michelle Product Selection Permitted Signatures: Dispatcher [employer] Radha Mccurdy RN RN sv Anderson, Corey, MD MD cha Corrections: (The following items were deleted from the chart) 08:13 08:12 Social history: Smoking status: Patient denies any tobacco usage or history of. svsv
--- NOTE | 2021-04-24 10:21 | RAD REPORT ---
EXAM DESCRIPTION: RAD - Chest Single View - 04/24/2021 9:17 am CLINICAL HISTORY: Chest pain dyspnea COMPARISON: 07/10/2020 TECHNIQUE: AP portable chest image was obtained . FINDINGS: Mild cardiomegaly. The lungs are otherwise clear. No edema, consolidation, or effusions. N o fractures are identified. Visualized upper abdomen is unremarkable IMPRESSION: No acute cardiopulmonary process.
[2021-04-24 11:38] VITALS: BP 122/75; TEMP 97.1; O2SAT 99
--- NOTE | 2021-04-24 16:08 | EKG ---
Test Date: 2021-04-24 Test Time: 08:56:19 Storage Facility Housekeeper: REBECCA MEASUREMENT RESULTS: Intervals: Rate: 80 NC: 120 QRSD: 88 QT: 360 QTc: 415 [place]: P: 31 NC: 120 QRS: 49 T: 56 INTERPRETIVE STATEMENTS: Normal sinus rhythm Nonspecific T wave abnormality Abnormal ECG Compared to ECG 07/10/2020 22:02:56 T-wave abnormality now present Electronically Signed On 04-24-21 16:08:18 CDT by Jb Clarke
== END 2021-04-24 11:32 | disposition home or self-care (01) ==
LOC: ER 08:07
DX: R10.819 Abdominal tenderness, unspecified site (principal); E66.9 Obesity, unspecified; F17.210 Nicotine dependence, cigarettes, uncomplicated; I10 Essential (primary) hypertension; Z88.0 Allergy status to penicillin
CPT/HCPCS: 36415; 70450; 71045; 71260; 74177; 80048; 80076; 81003; 82565; 83605; 83690; 83735; 83880; 84484; 85025; 85610; 87086; 87088; 93005; 99283; Q9967

== ENCOUNTER 2023-11-14 22:47 | Inpatient (IN) | payer OTHER, SELFPAY ==
--- OUTSIDE RECORDS SUMMARY | 2023-11-14 22:57 | XMS REPORT | Continuity of Care Document ---
Author Name Unknown Address [address] [facility] [address] [place] [address] [facility] thconnect Address [address] 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 Name Role Phone PCP, PATIENT DOES NOT HAVE A Primary Care Physic bala Unavailable Nidia SOLANO Attending Clinician Unavailable Nidia Goss Attending Clinician [phone] JOSE FRANCISCO WALTERS Attending Clinician Unavailable Jose Francisco Walters MD Attending Clinician [phone] CHAPITO CONTRERAS Attending Clinician Unavailable Chapito Contreras MD Attending Clinician [phone] LOREN TAM Attending Clinician Unavailable LOREN TAM Attending Clinician Unavailable Loren Tam DO Attending Clinician [phone] Doctor Unassigned, [place] Attending Clinician U navailable Patrick Garrett Attending Clinician [phone] PATRICK VERGARA Attending Clinician Unavailable SOFIA ESCOBAR Attending Clinician Unavailable SOFIA ESCOBAR Attending Clinician Unavailable MARIE MORALES Attending Clinician Unavailab Marie Cespedes DO Attending Clinician [phone] SAQIB CLARKE Attending Clinician Unavailable Saqib Clarke DO Attending Clinician [phone] BENJAMIN ASHFORD Attending Clinician Unavailable Benjamin Ashford MD Attending Clinician [phone] Geoff Cardona MD Attending Clinician [phone] GEOFF CARDONA Attending Clinician Unavailable Kiki Mathur MD Attending Clinician [phone] KIKI MATHUR Attending Clinician UnavailGricelda Sherman MD Attending Clinician [phone] JOSE FRANCISCO WALTERS Admitting Clinician Unavailable CHAPITO CONTRERAS Admitting Clinician Unavailable LOREN TAM Admitting Clinician Unavailable PATRICK VERGARA Admitting Clinician Unavailable Nidia SOLANO Admitting Clinician Unavailable MARIE MORALES Admitting Clinician Unavailab Gricelda Brooks MD Admitting Clinician [phone] Payers Payer Name Policy Type Policy Number Effective Date Expirati on Date Source MEDICAID ALIEN PENDING PENDING 2023 00:00:00 [facility] [id number] 2023 00:00:00 Problems Condition Name Condition Details Condition Category Status Onset Date Resolution Date Last Treatment Date Treating Clinician Comments Source Obesity (BMI 30-39.9) Obesity (BMI 30-39.9) Disease Active 05-08 00:00: 00 [facility] Cigarette nicotine dependence without complicati on Cigarette nicotine dependence without complicati on Disease Active 2019-10 00:00: 00 [facility] Atypical chest pain Atypical chest pain Disease Active 2019-10 00:00: 00 [facility] Essential hypertensi on Essential hypertensi on Disease Active 2019-10 00:00: 00 [facility] No known active problems No known active problems Disease [facility] Allergies, Adverse Reactions, Alerts Allergy Name Allergy Type Status Severity Reaction(s) Onset Date Inactive Date Treating Clinician Comments Source Penicill in Propensi ty to adverse reaction s Active Unknown - See comments 03-30 00:00: 00 [facility] PENICILL IN DRUG INGREDI Active Unknown-Cmnt 03-30 00:00: 00 [facility] NO KNOWN ALLERGIE S Drug Class Active [facility] Social History Social Habit Start Date Stop Date Quantity Comments Source History of tobacco use Cigarette Smoker [facility] History SDOH Alcohol Frequency [facility] History SDOH Alcohol Std Drinks [facility] History SDOH Alcohol Binge [facility] Gender identity [facility] intake 2023-11-05 00:00:00 2023-11-05 00:00:00 Current drinker of alcohol (finding) [facility] Exposure to SARS-CoV-2 (event) 2023-02-10 00:00:00 2023-02-20 18:06:00 Not sure [facility] Cigarettes smoked current (pack per day) - Reported 2021-05-08 00:00:00 2021-05-08 00:00:00 [facility] Alcohol Comment 2021-05-08 00:00:00 2021-05-08 00:00:00 6beers on the weekend [facility] Tobacco use and exposure 2021-05-08 00:00:00 2021-05-08 00:00:00 Smokeless tobacco non-user [facility] History of Social function 2020-08-29 00:00:00 2020-08-29 00:00:00 [facility] Sex Assigned At 1975 00:00:00 1975 00:00:00 [facility] Smoking Status Start Date Stop Date Source Smokes tobacco daily 2021-05-08 00:00:00 [facility] Never smoker [facility] Medications Ordered Medication Name Filled Medication Name Start Date Stop Date Current Medication? Ordering Clinician Indication Dosage Frequency Signature (SIG) Comments Components Source maalox:diph enhydrAMINE :lidocaine 2 % viscous 1:1:1 (FIRST-MOUT HWASH BLM) oral suspension 15 mL 11-06 07:15: 00 11-06 07:38 :00 No 15mL 15 mL, Oral, ONCE, 1 dose, On Ale 11/06/23 at 0115, Routine [facility] famotidine (PEPCID (PF)) injection 20 mg 11-06 07:15: 00 11-06 07:38 :00 No 20mg 20 mg, Slow IV Push, ONCE, 1 dose, [facility]23 [facility] 0115[facility] 0.9% (NS) bolus infusion 1,000 mL 11-06 07:15: 00 11-06 07:38 :00 No 1000mL at 999 mL/hr, 1,000 mL, IV Infusion, ONCE, 1 dose, On Ale 11/06/23 at 0115, STAT [facility] ondansetron (ZOFRAN (PF)) injection 4 mg 11-06 07:15: 00 11-06 06:19 :00 No 4mg 4 mg, Slow IV Push, ONCE, 1 dose, On Ale 11/06/23 at 0115, [facility] dicyclomine (BENTYL) injection 20 mg 11-06 07:00: 00 11-06 07:00 :00 No 20mg 20 mg, Intramuscu lar, ONCE, 1 dose, On Ale 11/06/23 at 0100, Routine [facility] dicyclomine 20 mg tablet 11-06 00:00: 00 Yes 20mg Take 1 tablet by mouth 4 (four) times daily. Indication s: abdominal pain [facility] famotidine (PEPCID) 40 mg tablet 11-06 00:00: 00 Yes [id number] 40mg Take 1 tablet by mouth daily. [facility] acetaminoph en (TYLENOL) tablet 650 mg 11-01 09:30: 00 11-01 09:30 :00 No 650mg 650 mg, Oral, ONCE, 1 dose, On 11/01/23 at 0330, [facility] iopamidol (ISOVUE 370-500 mL) injection 100 mL 11-01 09:30: 00 11-01 09:30 :00 No [id number] 100mL 100 mL, Intravenou s, ONCE, 1 dose, On 11/01/23 at 0330, Routine [facility] morpHINE (4 mg/mL) injection 4 mg 11-01 07:00: 00 11-01 06:56 :00 No 4mg 4 mg, Slow IV Push, ONCE, 1 dose, On 11/01/23 at 0100, STAT [facility] ketorolac (TORADOL) injection 30 mg 11-01 06:45: 00 11-01 06:00 :00 No 30mg 30 mg, Slow IV Push, ONCE, 1 dose, On 11/01/23 at 0045, [facility] NaCl 0.9% (NS) bolus infusion 1,000 mL 11-01 06:45: 00 11-01 07:59 :00 No 1000mL at 999 mL/hr, 1,000 mL, IV Piggyback, ONCE, 1 dose, On 11/01/23 at 0045, STAT [facility] ondansetron (ZOFRAN (PF)) injection 4 mg 11-01 06:00: 00 11-01 05:59 :00 No 4mg 4 mg, Slow IV Push, ONCE, 1 dose, On 11/01/23 at 0000, FAWN [facility] morpHINE (4 mg/mL) injection 4 mg 11-01 06:00: 00 11-01 06:00 :00 No 4mg 4 mg, Slow IV Push, ONCE, 1 dose, On 11/01/23 at 0000, STAT [facility] famotidine (PEPCID) 20 mg tablet 11-01 00:00: 00 Yes [id number] 20mg Take 1 tablet by mouth 2 (two) times daily. [facility] dicyclomine 20 mg tablet 11-01 00:00: 00 Yes [id number] 20mg Take 1 tablet by mouth 3 (three) times daily as needed for Abdominal pain. [facility] famotidine (PEPCID) 20 mg tablet 11-01 00:00: 00 Yes [id number] 20mg Take 1 tablet by mouth 2 (two) times daily. [facility] dicyclomine 20 mg tablet 1-13 00:00: 00 Yes [id number] 20mg Take 1 tablet by mouth 3 (three) times daily as needed for Abdominal pain. [facility] iopamidol (ISOVUE 370-500 mL) injection 100 mL 10-23 08:00: 00 10-23 08:00 :00 No [id number] 100mL 100 mL, Intravenou s, ONCE, 1 dose, On Ale 10/23/23 at 0200, Routine [facility] FENTanyl PF (SUBLIMAZE (PF)) injection 50 mcg 10-23 08:00: 00 10-23 07:01 :00 No 50ug 50 mcg, Slow IV Push, ONCE, 1 dose, On Ale 10/23/23 at 0200, Routine [facility] ketorolac (TORADOL) injection 30 mg 10-23 07:15: 00 10-23 06:08 :00 No 30mg 30 mg, Slow IV Push, ONCE, 1 dose, On Ale 10/23/23 at 0115, Routine [facility] ondansetron (ZOFRAN (PF)) injection 4 mg 10-23 06:15: 00 10-23 06:08 :00 No 4mg 4 mg, Slow IV Push, ONCE, 1 dose, On Ale 10/23/23 at 0015, FAWN [facility] ketorolac 10 mg tablet 10-23 00:00: 00 Yes [id number] 10mg Take 1 tablet by mouth every 6 (six) hours as needed for Pain (scale 7-10). [facility] ketorolac 10 mg tablet 10-23 00:00: 00 Yes [id number] 10mg Take 1 tablet by mouth every 6 (six) hours as needed for Pain (scale 7-10). [facility] ketorolac 10 mg tablet 10-23 00:00: 00 Yes [id number] 10mg Take 1 tablet by mouth every 6 (six) hours as needed for Pain (scale 7-10). [facility] iopamidol (ISOVUE 370-500 mL) injection 100 mL 2022-10 07:15: 00 09-26 07:15 :00 No [id number] 100mL 100 mL, Intravenou s, ONCE, 1 dose, On Fri09/26/23 at 0115, Routine [facility] ketorolac (TORADOL) injection 30 mg 2022-10 07:00: 00 09-26 06:12 :00 No 30mg 30 mg, Slow IV Push, ONCE, 1 dose, On Fri09/26/23 at 0100, Routine [facility] NaCl 0.9% (NS) bolus infusion 1,000 mL 2022-10 06:00: 00 09-26 06:15 :00 No 1000mL at 999 mL/hr, 1,000 mL, IV Infusion, ONCE, 1 dose, On Fri09/26/23 at 0000, FAWN [facility] morpHINE (4 mg/mL) injection 4 mg 2022-10 05:30: 00 09-26 05:19 :00 No 4mg 4 mg, Slow IV Push, ONCE, 1 dose, On Ale 09/25/23 at 2330, STAT [facility] lactulose (CEPHULAC) solution 60 mL 2022-10 05:15: 00 09-26 05:13 :00 No 60mL 60 mL, Oral, ONCE, 1 dose, On Ale 09/25/23 at 2315, FAWN [facility] ondansetron (ZOFRAN (PF)) injection 4 mg 2022-10 05:15: 00 09-26 05:13 :00 No 4mg 4 mg, Slow IV Push, ONCE, 1 dose, On Ale 09/25/23 at 2315, FAWN [facility] SEMAGLUTIDE , WEIGHT LOSS, SC 2022-10 02:30: 30 Yes inject under the skin. [facility] SEMAGLUTIDE , WEIGHT LOSS, SC 2022-10 02:30: 30 Yes inject under the skin. [facility] SEMAGLUTIDE , WEIGHT LOSS, SC 2022-10 02:30: 30 Yes inject under the skin. [facility] SEMAGLUTIDE , WEIGHT LOSS, SC 2022-10 02:30: 30 Yes inject under the skin. [facility] iopamidol (ISOVUE 370-500 mL) injection 75 mL 2022-10 09:00: 00 08-24 09:00 :00 Yes [id number] 75mL 75 mL, Intravenou s, ONCE, 1 dose, On 08/24/23 at 0300, Routine [facility] ondansetron (ZOFRAN (PF)) injection 4 mg 2022-10 06:30: 00 08-24 08:15 :00 No 4mg 4 mg, Slow IV Push, ONCE, 1 dose, On Fri08/24/23 at 0130, FAWN [facility] morpHINE (4 mg/mL) injection 4 mg 2022-10 06:30: 00 08-24 08:14 :00 No 4mg 4 mg, Slow IV Push, ONCE, 1 dose, On Fri08/24/23 at 0130, STAT [facility] aspirin tablet 325 mg 2022-10 05:15: 00 08-24 05:18 :00 No 325mg 325 mg, Oral, ONCE, 1 dose, On Fri08/24/23 at 0015, STAT [facility] ketorolac (TORADOL) injection 30 mg 07-07 10:45: 00 07-07 09:53 :00 No 30mg 30 mg, Slow IV Push, ONCE, 1 dose, On 07/07/23 at 0545, Routine [facility] metoclopram glenroy HCl (REGLAN) injection 10 mg 07-07 09:45: 00 07-07 09:54 :00 No 10mg 10 mg, Slow IV Push, ONCE, 1 dose, On Fri07/07/23 at 0445, FAWN [facility] butalbital- acetaminoph en-caff 50-325-40 mg tablet 2022-0 18 00:00: 00 Yes [id number] 1{tbl} Take 1 tablet by mouth every 6 (six) hours as needed (Headache) . [facility] butalbital- acetaminoph en-caff 50-325-40 mg tablet 2022-0 18 00:00: 00 Yes [id number] 1{tbl} Take 1 tablet by mouth every 6 (six) hours as needed (Headache) . [facility] butalbital- acetaminoph en-caff 50-325-40 mg tablet 2022-0 18 00:00: 00 Yes [id number] 1{tbl} Take 1 tablet by mouth every 6 (six) hours as needed (Headache) . [facility] butalbital- acetaminoph en-caff 50-325-40 mg tablet 0 18 00:00: 00 Yes [id number] 1{tbl} Take 1 tablet by mouth every 6 (six) hours as needed (Headache) . [facility] butalbital- acetaminoph en-caff 50-325-40 mg tablet 0 18 00:00: 00 Yes [id number] 1{tbl} Take 1 tablet by mouth every 6 (six) hours as needed (Headache) . [facility] butalbital- acetaminoph en-caff 50-325-40 mg tablet 2022-0 18 00:00: 00 Yes [id number] 1{tbl} Take 1 tablet by mouth every 6 (six) hours as needed (Headache) . [facility] butalbital- acetaminoph en-caff 50-325-40 mg tablet 0 18 00:00: 00 Yes [id number] 1{tbl} Take 1 tablet by mouth every 6 (six) hours as needed (Headache) . [facility] metFORMIN (GLUCOPHAGE ) tablet 500 mg 05-26 13:00: 00 Yes 500mg 500 mg, Oral, BID MEALS, First dose on Fri05/26/23 at 0800, Until Discontinu ed, Routine [facility] ketorolac (TORADOL) injection 15 mg 05-26 03:00: 00 05-26 02:19 :00 No 15mg 15 mg, Slow IV Push, ONCE, 1 dose, On Fri05/25/23 at 2200, [facility] nitroglycer in (NITROL) 2 % ointment 0.5 Inch 05-25 23:30: 00 05-26 01:27 :00 No .5[in_u s] 0.5 Inch, Transderma l (Apply To Skin), ONCE, 1 dose, On 05/25/23 at 1830, [facility] maalox:diph enhydrAMINE :lidocaine 2 % viscous 1:1:1 (FIRST-MOUT HWASH BLM) oral suspension 15 mL 05-25 23:30: 00 05-26 00:49 :00 No 15mL 15 mL, Oral (Swish & Swallow), ONCE, 1 dose, On Fri05/25/23 at 1830, Routine [facility] aspirin chewable tablet 324 mg 05-25 23:30: 00 05-25 22:24 :00 No 324mg 324 mg, Oral, ONCE, 1 dose, On 05/25/23 at 1830, Routine [facility] metFORMIN 500 mg tablet 05-25 00:00: 00 Yes [id number] 500mg Take 1 tablet by mouth 2 (two) times daily. [facility] naproxen (NAPROSYN) 500 mg tablet 05-25 00:00: 00 Yes [id number] 500mg Take 1 tablet by mouth 2 (two) times daily with meals. [facility] metFORMIN 500 mg tablet 05-25 00:00: 00 Yes [id number] 500mg Take 1 tablet by mouth 2 (two) times daily. [facility] naproxen (NAPROSYN) 500 mg tablet 05-25 00:00: 00 Yes [id number] 500mg Take 1 tablet by mouth 2 (two) times daily with meals. [facility] metFORMIN 500 mg tablet 05-25 00:00: 00 Yes [id number] 500mg Take 1 tablet by mouth 2 (two) times daily. [facility] naproxen (NAPROSYN) 500 mg tablet 2022-0 8 00:00: 00 Yes [id number] 500mg Take 1 tablet by mouth 2 (two) times daily with meals. [facility] metFORMIN 500 mg tablet 2022-0 8 00:00: 00 Yes [id number] 500mg Take 1 tablet by mouth 2 (two) times daily. [facility] naproxen (NAPROSYN) 500 mg tablet 2022-0 05-25 00:00: 00 Yes [id number] 500mg Take 1 tablet by mouth 2 (two) times daily with meals. [facility] metFORMIN 500 mg tablet 2022-0 05-25 00:00: 00 Yes [id number] 500mg Take 1 tablet by mouth 2 (two) times daily. [facility] naproxen (NAPROSYN) 500 mg tablet 2022-0 05-25 00:00: 00 Yes [id number] 500mg Take 1 tablet by mouth 2 (two) times daily with meals. [facility] metFORMIN 500 mg tablet 2022-0 05-25 00:00: 00 Yes [id number] 500mg Take 1 tablet by mouth 2 (two) times daily. [facility] naproxen (NAPROSYN) 500 mg tablet 2022-0 05-25 00:00: 00 Yes [id number] 500mg Take 1 tablet by mouth 2 (two) times daily with meals. [facility] metFORMIN 500 mg tablet 2022-0 05-25 00:00: 00 Yes [id number] 500mg Take 1 tablet by mouth 2 (two) times daily. [facility] naproxen (NAPROSYN) 500 mg tablet 2022-0 8 00:00: 00 Yes [id number] 500mg Take 1 tablet by mouth 2 (two) times daily with meals. [facility] metFORMIN 500 mg tablet 2022-0 8- 00:00: 00 Yes [id number] 500mg Take 1 tablet by mouth 2 (two) times daily. [facility] naproxen (NAPROSYN) 500 mg tablet 2022-0 8-06 00:00: 00 Yes [id number] 500mg Take 1 tablet by mouth 2 (two) times daily with meals. [facility] cloNIDine (CATAPRES) tablet 0.2 mg 02-21 00:45: 00 02-21 01:50 :00 No .2mg 0.2 mg, Oral, ONCE, 1 dose, On Ale 02/20/23 at 1945, FAWN [facility] ibuprofen (IBU) tablet 600 mg 02-20 23:30: 00 02-20 23:30 :00 No 600mg 600 mg, Oral, ONCE, 1 dose, On Ale 02/20/23 at 1830, FAWN [facility] ibuprofen 600 mg tablet 2022-0 02-20 00:00: 00 Yes [id number] 600mg Take 1 tablet by mouth every 6 (six) hours as needed for Pain (scale 4-6) for up to 30 doses. [facility] ibuprofen 600 mg tablet 2022-0 02-20 00:00: 00 Yes [id number] 600mg Take 1 tablet by mouth every 6 (six) hours as needed for Pain (scale 4-6) for up to 30 doses. [facility] ibuprofen 600 mg tablet 2022-0 02-20 00:00: 00 Yes [id number] 600mg Take 1 tablet by mouth every 6 (six) hours as needed for Pain (scale 4-6) for up to 30 doses. [facility] ibuprofen 600 mg tablet 2022-0 02-20 00:00: 00 Yes [id number] 600mg Take 1 tablet by mouth every 6 (six) hours as needed for Pain (scale 4-6) for up to 30 doses. [facility] ibuprofen 600 mg tablet 2022-0 04 00:00: 00 Yes [id number] 600mg Take 1 tablet by mouth every 6 (six) hours as needed for Pain (scale 4-6) for up to 30 doses. [facility] ibuprofen 600 mg tablet 2022-0 04 00:00: 00 Yes [id number] 600mg Take 1 tablet by mouth every 6 (six) hours as needed for Pain (scale 4-6) for up to 30 doses. [facility] ibuprofen 600 mg tablet 0 04 00:00: 00 Yes [id number] 600mg Take 1 tablet by mouth every 6 (six) hours as needed for Pain (scale 4-6) for up to 30 doses. [facility] ibuprofen 600 mg tablet 2022-0 -04 00:00: 00 Yes [id number] 600mg Take 1 tablet by mouth every 6 (six) hours as needed for Pain (scale 4-6) for up to 30 doses. [facility] ibuprofen 600 mg tablet 0 -04 00:00: 00 Yes [id number] 600mg Take 1 tablet by mouth every 6 (six) hours as needed for Pain (scale 4-6) for up to 30 doses. [facility] iopamidol (ISOVUE 370-500 mL) injection 100 mL 12-29 09:15: 00 12-29 09:15 :00 No [id number] 100mL 100 mL, Intravenou s, ONCE, 1 dose, On [place] 12/29/22 at 0415, Routine [facility] ketorolac (TORADOL) injection 30 mg 12-29 09:00: 00 12-29 07:53 :00 No 30mg 30 mg, Slow IV Push, ONCE, 1 dose, On Fri12/29/22 at 0400, Routine [facility] ketorolac 10 mg tablet 0 12 00:00: 00 Yes [id number] 10mg Take 1 tablet by mouth every 6 (six) hours as needed for Pain (scale 7-10). [facility] ondansetron (ZOFRAN) 4 mg tablet 0 12 00:00: 00 Yes [id number] 4mg Take 1 tablet by mouth every 8 (eight) hours as needed for Nausea and Vomiting (N/V). [facility] ketorolac 10 mg tablet 0 12 00:00: 00 Yes [id number] 10mg Take 1 tablet by mouth every 6 (six) hours as needed for Pain (scale 7-10). [facility] ondansetron (ZOFRAN) 4 mg tablet 2023-0 3-12 00:00: 00 Yes [id number] 4mg Take 1 tablet by mouth every 8 (eight) hours as needed for Nausea and Vomiting (N/V). [facility] mg tablet 3-0 3-12 00:00: 00 Yes [id number] 10mg Take 1 tablet by mouth every 6 (six) hours as needed for Pain (scale 7-10). [facility] ondansetron (ZOFRAN) 4 mg tablet 3-0 3-12 00:00: 00 Yes [id number] 4mg Take 1 tablet by mouth every 8 (eight) hours as needed for Nausea and Vomiting (N/V). [facility] ketorolac 10 mg tablet 3-0 3-12 00:00: 00 Yes [id number] 10mg Take 1 tablet by mouth every 6 (six) hours as needed for Pain (scale 7-10). [facility] ondansetron (ZOFRAN) 4 mg tablet 3-0 3-12 00:00: 00 Yes [id number] 4mg Take 1 tablet by mouth every 8 (eight) hours as needed for Nausea and Vomiting (N/V). [facility] ketorolac 10 mg tablet 3-0 3-12 00:00: 00 Yes [id number] 10mg Take 1 tablet by mouth every 6 (six) hours as needed for Pain (scale 7-10). [facility] ondansetron (ZOFRAN) 4 mg tablet 3-0 3-12 00:00: 00 Yes [id number] 4mg Take 1 tablet by mouth every 8 (eight) hours as needed for Nausea and Vomiting (N/V). [facility] ketorolac 10 mg tablet 3-0 3-12 00:00: 00 Yes [id number] 10mg Take 1 tablet by mouth every 6 (six) hours as needed for Pain (scale 7-10). [facility] ondansetron (ZOFRAN) 4 mg tablet 2023-0 3-12 00:00: 00 Yes [id number] 4mg Take 1 tablet by mouth every 8 (eight) hours as needed for Nausea and Vomiting (N/V). [facility] ketorolac 10 mg tablet 3-0 3-12 00:00: 00 Yes [id number] 10mg Take 1 tablet by mouth every 6 (six) hours as needed for Pain (scale 7-10). [facility] ondansetron (ZOFRAN) 4 mg tablet 3-0 3-12 00:00: 00 Yes [id number] 4mg Take 1 tablet by mouth every 8 (eight) hours as needed for Nausea and Vomiting (N/V). [facility] ketorolac 10 mg tablet 3-0 3-12 00:00: 00 Yes [id number] 10mg Take 1 tablet by mouth every 6 (six) hours as needed for Pain (scale 7-10). [facility] ondansetron (ZOFRAN) 4 mg tablet 2022-0 3-12 00:00: 00 Yes [id number] 4mg Take 1 tablet by mouth every 8 (eight) hours as needed for Nausea and Vomiting (N/V). [facility] ketorolac 10 mg tablet 3-0 3-12 00:00: 00 Yes [id number] 10mg Take 1 tablet by mouth every 6 (six) hours as needed for Pain (scale 7-10). [facility] ondansetron (ZOFRAN) 4 mg tablet 3-0 3-12 00:00: 00 Yes [id number] 4mg Take 1 tablet by mouth every 8 (eight) hours as needed for Nausea and Vomiting (N/V). [facility] ketorolac 10 mg tablet 3-0 3-12 00:00: 00 Yes [id number] 10mg Take 1 tablet by mouth every 6 (six) hours as needed for Pain (scale 7-10). [facility] ondansetron (ZOFRAN) 4 mg tablet 3-0 3-12 00:00: 00 Yes [id number] 4mg Take 1 tablet by mouth every 8 (eight) hours as needed for Nausea and Vomiting (N/V). [facility] ketorolac 10 mg tablet 3-0 3-12 00:00: 00 Yes [id number] 10mg Take 1 tablet by mouth every 6 (six) hours as needed for Pain (scale 7-10). [facility] ondansetron (ZOFRAN) 4 mg tablet -12 00:00: 00 Yes [id number] 4mg Take 1 tablet by mouth every 8 (eight) hours as needed for Nausea and Vomiting (N/V). [facility] maalox:diph enhydrAMINE :lidocaine 2 % viscous 1:1:1 (FIRST-MOUT HWASH BLM) oral suspension 15 mL 11-21 08:45: 00 11-21 08:36 :00 No 15mL 15 mL, Oral, ONCE, 1 dose, On Ale 11/21/22 at 0245, Routine [facility] metoclopram glenroy HCl (REGLAN) tablet 10 mg 06-02 12:30: 00 Yes 10mg 10 mg, Oral, AC, First dose on 06/02/22 at 0730, Until Discontinu ed, Routine [facility] dexamethaso ne (DECADRON PHOSPHATE) injection 10 mg 06-02 06:00: 00 06-02 04:55 :00 No 10mg 10 mg, Oral, ONCE, 1 dose, On 06/02/22 at 0100, Routine [facility] butalbital- acetaminoph en-caff (ESGIC) 50-325-40 mg tablet 1 tablet 06-02 05:00: 00 06-02 04:56 :00 No 1{tbl} 1 tablet, Oral, ONCE, 1 dose, On 06/02/22 at 0000, FAWN [facility] diphenhydrA MINE (BENADRYL) tablet 50 mg 06-02 05:00: 00 06-02 04:54 :00 No 50mg 50 mg, Oral, ONCE, 1 dose, On 06/02/22 at 0000, [facility] levothyroxi ne (SYNTHROID) tablet 100 mcg 05-29 11:00: 00 Yes 100ug 100 mcg, Oral, QAM-0600, First dose on Fri05/29/22 at 0600, Until Discontinu ed, Routine [facility] levothyroxi ne 200 mcg tablet 05-28 13:18: 02 05-28 00:00 :00 No 300ug Take 300 mcg by mouth every morning. [facility] levothyroxi ne 300 mcg tablet 05-28 00:00: 00 08-27 05:59 :00 No [id number] 300ug Take 1 tablet by mouth every morning for 90 days. [facility] levothyroxi ne 300 mcg tablet 05-28 00:00: 00 08-27 05:59 :00 No [id number] 300ug Take 1 tablet by mouth every morning for 90 days. [facility] ketorolac (TORADOL) injection 15 mg 05-06 06:30: 00 05-06 05:30 :00 No 15mg 15 mg, Slow IV Push, ONCE, 1 dose, On Fri05/06/22 at 0130, FAWN [facility] iopamidol (ISOVUE 370-500 mL) injection 65 mL 05-06 06:00: 00 05-06 06:15 :00 No [id number] 65mL 65 mL, Intravenou s, ONCE, 1 dose, On Fri05/06/22 at 0115, Routine [facility] benzonatate 200 mg capsule 05-06 00:00: 00 Yes [id number] 200mg Take 1 capsule by mouth 3 (three) times daily as needed for Cough for up to 20 doses. [facility] ondansetron 4 mg disintegrat ing tablet 05-06 00:00: 00 Yes [id number] 4mg Take 1 tablet by mouth every 8 (eight) hours as needed for Nausea and Vomiting (N/V). [facility] benzonatate 200 mg capsule 05-06 00:00: 00 Yes [id number] 200mg Take 1 capsule by mouth 3 (three) times daily as needed for Cough for up to 20 doses. [facility] ondansetron 4 mg disintegrat ing tablet 05-06 00:00: 00 Yes [id number] 4mg Take 1 tablet by mouth every 8 (eight) hours as needed for Nausea and Vomiting (N/V). [facility] benzonatate 200 mg capsule 2021-0 18 00:00: 00 Yes [id number] 200mg Take 1 capsule by mouth 3 (three) times daily as needed for Cough for up to 20 doses. [facility] ondansetron 4 mg disintegrat ing tablet 2021-0 18 00:00: 00 Yes [id number] 4mg Take 1 tablet by mouth every 8 (eight) hours as needed for Nausea and Vomiting (N/V). [facility] benzonatate 200 mg capsule 2021-0 18 00:00: 00 Yes [id number] 200mg Take 1 capsule by mouth 3 (three) times daily as needed for Cough for up to 20 doses. [facility] ondansetron 4 mg disintegrat ing tablet 2021-0 05-06 00:00: 00 Yes [id number] 4mg Take 1 tablet by mouth every 8 (eight) hours as needed for Nausea and Vomiting (N/V). [facility] benzonatate 200 mg capsule 2021-0 18 00:00: 00 Yes [id number] 200mg Take 1 capsule by mouth 3 (three) times daily as needed for Cough for up to 20 doses. [facility] ondansetron 4 mg disintegrat ing tablet 2021-0 18 00:00: 00 Yes [id number] 4mg Take 1 tablet by mouth every 8 (eight) hours as needed for Nausea and Vomiting (N/V). [facility] benzonatate 200 mg capsule 2021-0 18 00:00: 00 Yes [id number] 200mg Take 1 capsule by mouth 3 (three) times daily as needed for Cough for up to 20 doses. [facility] ondansetron 4 mg disintegrat ing tablet 2021-0 18 00:00: 00 Yes [id number] 4mg Take 1 tablet by mouth every 8 (eight) hours as needed for Nausea and Vomiting (N/V). [facility] benzonatate 200 mg capsule 2021-0 -18 00:00: 00 Yes [id number] 200mg Take 1 capsule by mouth 3 (three) times daily as needed for Cough for up to 20 doses. [facility] ondansetron 4 mg disintegrat ing tablet 0 18 00:00: 00 Yes [id number] 4mg Take 1 tablet by mouth every 8 (eight) hours as needed for Nausea and Vomiting (N/V). [facility] ibuprofen 600 mg tablet 0 18 00:00: 00 Yes [id number] 600mg Take 1 tablet by mouth every 6 (six) hours as needed for Pain (scale 4-6). [facility] benzonatate 200 mg capsule 05-06 00:00: 00 Yes [id number] 200mg Take 1 capsule by mouth 3 (three) times daily as needed for Cough for up to 20 doses. [facility] ondansetron 4 mg disintegrat ing tablet 05-06 00:00: 00 Yes [id number] 4mg Take 1 tablet by mouth every 8 (eight) hours as needed for Nausea and Vomiting (N/V). [facility] ibuprofen 600 mg tablet 0 18 00:00: 00 Yes [id number] 600mg Take 1 tablet by mouth every 6 (six) hours as needed for Pain (scale 4-6). [facility] benzonatate 200 mg capsule 2021-0 18 00:00: 00 Yes [id number] 200mg Take 1 capsule by mouth 3 (three) times daily as needed for Cough for up to 20 doses. [facility] ondansetron 4 mg disintegrat ing tablet 0 18 00:00: 00 Yes [id number] 4mg Take 1 tablet by mouth every 8 (eight) hours as needed for Nausea and Vomiting (N/V). [facility] ibuprofen 600 mg tablet 2021-0 18 00:00: 00 Yes [id number] 600mg Take 1 tablet by mouth every 6 (six) hours as needed for Pain (scale 4-6). [facility] benzonatate 200 mg capsule 2021-0 18 00:00: 00 Yes [id number] 200mg Take 1 capsule by mouth 3 (three) times daily as needed for Cough for up to 20 doses. [facility] ondansetron 4 mg disintegrat ing tablet 2021-0 18 00:00: 00 Yes [id number] 4mg Take 1 tablet by mouth every 8 (eight) hours as needed for Nausea and Vomiting (N/V). [facility] ibuprofen 600 mg tablet 2021-0 18 00:00: 00 Yes [id number] 600mg Take 1 tablet by mouth every 6 (six) hours as needed for Pain (scale 4-6). [facility] benzonatate 200 mg capsule 2021-0 18 00:00: 00 Yes [id number] 200mg Take 1 capsule by mouth 3 (three) times daily as needed for Cough for up to 20 doses. [facility] ondansetron 4 mg disintegrat ing tablet 2021-0 18 00:00: 00 Yes [id number] 4mg Take 1 tablet by mouth every 8 (eight) hours as needed for Nausea and Vomiting (N/V). [facility] ibuprofen 600 mg tablet 2021-0 18 00:00: 00 Yes [id number] 600mg Take 1 tablet by mouth every 6 (six) hours as needed for Pain (scale 4-6). [facility] benzonatate 200 mg capsule 2021-0 18 00:00: 00 Yes [id number] 200mg Take 1 capsule by mouth 3 (three) times daily as needed for Cough for up to 20 doses. [facility] ondansetron 4 mg disintegrat ing tablet 2021-0 18 00:00: 00 Yes [id number] 4mg Take 1 tablet by mouth every 8 (eight) hours as needed for Nausea and Vomiting (N/V). [facility] ibuprofen 600 mg tablet 2-0 -18 00:00: 00 Yes [id number] 600mg Take 1 tablet by mouth every 6 (six) hours as needed for Pain (scale 4-6). [facility] benzonatate 200 mg capsule 2-0 -18 00:00: 00 Yes [id number] 200mg Take 1 capsule by mouth 3 (three) times daily as needed for Cough for up to 20 doses. [facility] ondansetron 4 mg disintegrat ing tablet 2021-0 18 00:00: 00 Yes [id number] 4mg Take 1 tablet by mouth every 8 (eight) hours as needed for Nausea and Vomiting (N/V). [facility] ibuprofen 600 mg tablet 18 00:00: 00 Yes [id number] 600mg Take 1 tablet by mouth every 6 (six) hours as needed for Pain (scale 4-6). [facility] benzonatate 200 mg capsule 05-06 00:00: 00 Yes [id number] 200mg Take 1 capsule by mouth 3 (three) times daily as needed for Cough for up to 20 doses. [facility] ondansetron 4 mg disintegrat ing tablet 05-06 00:00: 00 Yes [id number] 4mg Take 1 tablet by mouth every 8 (eight) hours as needed for Nausea and Vomiting (N/V). [facility] benzonatate 200 mg capsule 0 05-06 00:00: 00 Yes [id number] 200mg Take 1 capsule by mouth 3 (three) times daily as needed for Cough for up to 20 doses. [facility] ondansetron 4 mg disintegrat ing tablet 05-06 00:00: 00 Yes [id number] 4mg Take 1 tablet by mouth every 8 (eight) hours as needed for Nausea and Vomiting (N/V). [facility] benzonatate 200 mg capsule 2021-0 05-06 00:00: 00 Yes [id number] 200mg Take 1 capsule by mouth 3 (three) times daily as needed for Cough for up to 20 doses. [facility] ondansetron 4 mg disintegrat ing tablet 2021-0 18 00:00: 00 Yes [id number] 4mg Take 1 tablet by mouth every 8 (eight) hours as needed for Nausea and Vomiting (N/V). [facility] ibuprofen 600 mg tablet 2021-0 18 00:00: 00 02-20 00:00 :00 No [id number] 600mg Take 1 tablet by mouth every 6 (six) hours as needed for Pain (scale 4-6). [facility] molnupiravi r 200 mg capsule 05-06 00:00: 00 05-12 04:59 :00 No [id number] 800mg Take 4 capsules by mouth every 12 (twelve) hours for 5 days. [facility] magnesium sulfate in water 2 gram/50 mL (4 %) infusion 2 g 05-01 13:45: 00 05-01 14:06 :00 No 2g 2 g, IV Piggyback, Administer over 60 Minutes, ONCE, 1 dose, On Fri05/01/22 at 0845, Routine [facility] diphenhydrA MINE (BENADRYL) injection 50 mg 05-01 12:45: 00 05-01 12:43 :00 No 50mg 50 mg, Slow IV Push, ONCE, 1 dose, On Fri05/01/22 at 0745, STAT [facility] maalox:diph enhydrAMINE :lidocaine 2 % viscous 1:1:1 ([facility]) oral suspension 15 mL 02-08 07:15: 00 02-08 06:14 :00 No 15mL 15 mL, Oral, ONCE, 1 dose, On Fri02/08/22 at 0215, FAWN [facility] sucralfate 1 gram tablet 02-08 00:00: 00 Yes [id number] 1g Take 1 tablet by mouth before meals and at bedtime. [facility] ondansetron 4 mg disintegrat ing tablet 02-08 00:00: 00 Yes [id number] 4mg Take 1 tablet by mouth every 4 (four) hours as needed for Nausea and Vomiting (N/V). [facility] pantoprazol e 40 mg EC tablet 02-08 00:00: 00 Yes [id number] 40mg Take 1 tablet by mouth daily. [facility] sucralfate 1 gram tablet 02-08 00:00: 00 Yes [id number] 1g Take 1 tablet by mouth before meals and at bedtime. [facility] ondansetron 4 mg disintegrat ing tablet 0 02-08 00:00: 00 Yes [id number] 4mg Take 1 tablet by mouth every 4 (four) hours as needed for Nausea and Vomiting (N/V). [facility] pantoprazol e 40 mg EC tablet 0 02-08 00:00: 00 Yes [id number] 40mg Take 1 tablet by mouth daily. [facility] sucralfate 1 gram tablet 0 02-08 00:00: 00 Yes [id number] 1g Take 1 tablet by mouth before meals and at bedtime. [facility] ondansetron 4 mg disintegrat ing tablet 02-08 00:00: 00 Yes [id number] 4mg Take 1 tablet by mouth every 4 (four) hours as needed for Nausea and Vomiting (N/V). [facility] pantoprazol e 40 mg EC tablet 0 02-08 00:00: 00 Yes [id number] 40mg Take 1 tablet by mouth daily. [facility] sucralfate 1 gram tablet 0 02-08 00:00: 00 Yes [id number] 1g Take 1 tablet by mouth before meals and at bedtime. [facility] ondansetron 4 mg disintegrat ing tablet 0 02-08 00:00: 00 Yes [id number] 4mg Take 1 tablet by mouth every 4 (four) hours as needed for Nausea and Vomiting (N/V). [facility] pantoprazol e 40 mg EC tablet 0 02-08 00:00: 00 Yes [id number] 40mg Take 1 tablet by mouth daily. [facility] sucralfate 1 gram tablet 0 02-08 00:00: 00 Yes [id number] 1g Take 1 tablet by mouth before meals and at bedtime. [facility] ondansetron 4 mg disintegrat ing tablet 0 02-08 00:00: 00 Yes [id number] 4mg Take 1 tablet by mouth every 4 (four) hours as needed for Nausea and Vomiting (N/V). [facility] pantoprazol e 40 mg EC tablet 0 02-08 00:00: 00 Yes [id number] 40mg Take 1 tablet by mouth daily. [facility] sucralfate 1 gram tablet 0 02-08 00:00: 00 Yes [id number] 1g Take 1 tablet by mouth before meals and at bedtime. [facility] ondansetron 4 mg disintegrat ing tablet 0 02-08 00:00: 00 Yes [id number] 4mg Take 1 tablet by mouth every 4 (four) hours as needed for Nausea and Vomiting (N/V). [facility] pantoprazol e 40 mg EC tablet 0 02-08 00:00: 00 Yes [id number] 40mg Take 1 tablet by mouth daily. [facility] sucralfate 1 gram tablet 0 02-08 00:00: 00 Yes [id number] 1g Take 1 tablet by mouth before meals and at bedtime. [facility] ondansetron 4 mg disintegrat ing tablet 0 02-08 00:00: 00 Yes [id number] 4mg Take 1 tablet by mouth every 4 (four) hours as needed for Nausea and Vomiting (N/V). [facility] pantoprazol e 40 mg EC tablet 0 02-08 00:00: 00 Yes [id number] 40mg Take 1 tablet by mouth daily. [facility] sucralfate 1 gram tablet 0 02-08 00:00: 00 Yes [id number] 1g Take 1 tablet by mouth before meals and at bedtime. [facility] ondansetron 4 mg disintegrat ing tablet 0 02-08 00:00: 00 Yes [id number] 4mg Take 1 tablet by mouth every 4 (four) hours as needed for Nausea and Vomiting (N/V). [facility] pantoprazol e 40 mg EC tablet 0 02-08 00:00: 00 Yes [id number] 40mg Take 1 tablet by mouth daily. [facility] sucralfate 1 gram tablet 2021-0 02-08 00:00: 00 Yes [id number] 1g Take 1 tablet by mouth before meals and at bedtime. [facility] ondansetron 4 mg disintegrat ing tablet 2021-0 02-08 00:00: 00 Yes [id number] 4mg Take 1 tablet by mouth every 4 (four) hours as needed for Nausea and Vomiting (N/V). [facility] pantoprazol e 40 mg EC tablet 0 02-08 00:00: 00 Yes [id number] 40mg Take 1 tablet by mouth daily. [facility] sucralfate 1 gram tablet 0 02-08 00:00: 00 Yes [id number] 1g Take 1 tablet by mouth before meals and at bedtime. [facility] ondansetron 4 mg disintegrat ing tablet 0 02-08 00:00: 00 Yes [id number] 4mg Take 1 tablet by mouth every 4 (four) hours as needed for Nausea and Vomiting (N/V). [facility] pantoprazol e 40 mg EC tablet 2021-0 02-08 00:00: 00 Yes [id number] 40mg Take 1 tablet by mouth daily. [facility] sucralfate 1 gram tablet 0 02-08 00:00: 00 Yes [id number] 1g Take 1 tablet by mouth before meals and at bedtime. [facility] ondansetron 4 mg disintegrat ing tablet 0 02-08 00:00: 00 Yes [id number] 4mg Take 1 tablet by mouth every 4 (four) hours as needed for Nausea and Vomiting (N/V). [facility] pantoprazol e 40 mg EC tablet 0 02-08 00:00: 00 Yes [id number] 40mg Take 1 tablet by mouth daily. [facility] sucralfate 1 gram tablet 2021-0 02-08 00:00: 00 Yes [id number] 1g Take 1 tablet by mouth before meals and at bedtime. [facility] ondansetron 4 mg disintegrat ing tablet 2021-0 02-08 00:00: 00 Yes [id number] 4mg Take 1 tablet by mouth every 4 (four) hours as needed for Nausea and Vomiting (N/V). [facility] pantoprazol e 40 mg EC tablet 0 02-08 00:00: 00 Yes [id number] 40mg Take 1 tablet by mouth daily. [facility] sucralfate 1 gram tablet 0 02-08 00:00: 00 Yes [id number] 1g Take 1 tablet by mouth before meals and at bedtime. [facility] ondansetron 4 mg disintegrat ing tablet 02-08 00:00: 00 Yes [id number] 4mg Take 1 tablet by mouth every 4 (four) hours as needed for Nausea and Vomiting (N/V). [facility] pantoprazol e 40 mg EC tablet 02-08 00:00: 00 Yes [id number] 40mg Take 1 tablet by mouth daily. [facility] sucralfate 1 gram tablet 02-08 00:00: 00 Yes [id number] 1g Take 1 tablet by mouth before meals and at bedtime. [facility] ondansetron 4 mg disintegrat ing tablet 02-08 00:00: 00 Yes [id number] 4mg Take 1 tablet by mouth every 4 (four) hours as needed for Nausea and Vomiting (N/V). [facility] pantoprazol e 40 mg EC tablet 02-08 00:00: 00 Yes [id number] 40mg Take 1 tablet by mouth daily. [facility] sucralfate 1 gram tablet 0 02-08 00:00: 00 Yes [id number] 1g Take 1 tablet by mouth before meals and at bedtime. [facility] ondansetron 4 mg disintegrat ing tablet 0 02-08 00:00: 00 Yes [id number] 4mg Take 1 tablet by mouth every 4 (four) hours as needed for Nausea and Vomiting (N/V). [facility] pantoprazol e 40 mg EC tablet 0 02-08 00:00: 00 Yes [id number] 40mg Take 1 tablet by mouth daily. [facility] sucralfate 1 gram tablet 0 02-08 00:00: 00 Yes [id number] 1g Take 1 tablet by mouth before meals and at bedtime. [facility] ondansetron 4 mg disintegrat ing tablet 02-08 00:00: 00 Yes [id number] 4mg Take 1 tablet by mouth every 4 (four) hours as needed for Nausea and Vomiting (N/V). [facility] pantoprazol e 40 mg EC tablet 02-08 00:00: 00 Yes [id number] 40mg Take 1 tablet by mouth daily. [facility] sucralfate 1 gram tablet 02-08 00:00: 00 Yes [id number] 1g Take 1 tablet by mouth before meals and at bedtime. [facility] ondansetron 4 mg disintegrat ing tablet 02-08 00:00: 00 Yes [id number] 4mg Take 1 tablet by mouth every 4 (four) hours as needed for Nausea and Vomiting (N/V). [facility] pantoprazol e 40 mg EC tablet 02-08 00:00: 00 Yes [id number] 40mg Take 1 tablet by mouth daily. [facility] sucralfate 1 gram tablet 02-08 00:00: 00 Yes [id number] 1g Take 1 tablet by mouth before meals and at bedtime. [facility] ondansetron 4 mg disintegrat ing tablet 02-08 00:00: 00 Yes [id number] 4mg Take 1 tablet by mouth every 4 (four) hours as needed for Nausea and Vomiting (N/V). [facility] pantoprazol e 40 mg EC tablet 02-08 00:00: 00 Yes [id number] 40mg Take 1 tablet by mouth daily. [facility] maalox:diph enhydrAMINE :lidocaine 2 % viscous 1:1:1 ([facility]) oral suspension 15 mL 2020-10 02:15: 00 10-15 01:17 :00 No 15mL 15 mL, Oral, ONCE, 1 dose, On 10/14/21 at 2015, Routine [facility] iopamidol (ISOVUE 370-500 mL) injection 120 mL 2020-10 01:45: 00 10-15 00:37 :00 No [id number] 120mL 120 mL, Intravenou s, ONCE, 1 dose, On Fri10/14/21 at 1945, Routine [facility] famotidine (PEPCID (PF)) injection 20 mg 2020-10 00:30: 00 10-15 00:26 :00 No 20mg 20 mg, Slow IV Push, ONCE, 1 dose, On 10/14/21 at 1830, Routine [facility] enalapril 20 mg tablet 05-15 17:24: 35 Yes 25mg Take 25 mg by mouth daily. [facility] levothyroxi ne 200 mcg tablet 05-15 17:24: 35 Yes 300ug Take 300 mcg by mouth every morning. [facility] enalapril 20 mg tablet 05-15 12:24: 35 Yes 25mg Take 25 mg by mouth daily. [facility] enalapril 20 mg tablet 05-15 12:24: 35 Yes 25mg Take 25 mg by mouth daily. [facility] enalapril 20 mg tablet 05-15 12:24: 35 Yes 25mg Take 25 mg by mouth daily. [facility] enalapril 20 mg tablet 05-15 12:24: 35 Yes 25mg Take 25 mg by mouth daily. [facility] enalapril 20 mg tablet 05-15 12:24: 35 Yes 25mg Take 25 mg by mouth daily. [facility] enalapril 20 mg tablet 05-15 12:24: 35 Yes 25mg Take 25 mg by mouth daily. [facility] enalapril 20 mg tablet 05-15 12:24: 35 Yes 25mg Take 25 mg by mouth daily. [facility] levothyroxi ne 200 mcg tablet 05-15 12:24: 35 Yes 300ug Take 300 mcg by mouth every morning. [facility] enalapril 20 mg tablet 05-15 12:24: 35 Yes 25mg Take 25 mg by mouth daily. [facility] levothyroxi ne 200 mcg tablet 05-15 12:24: 35 Yes 300ug Take 300 mcg by mouth every morning. [facility] enalapril 20 mg tablet 05-15 12:24: 35 Yes 25mg Take 25 mg by mouth daily. [facility] levothyroxi ne 200 mcg tablet 05-15 12:24: 35 Yes 300ug Take 300 mcg by mouth every morning. [facility] enalapril 20 mg tablet 05-15 12:24: 35 Yes 25mg Take 25 mg by mouth daily. [facility] levothyroxi ne 200 mcg tablet 05-15 12:24: 35 Yes 300ug Take 300 mcg by mouth every morning. [facility] enalapril 20 mg tablet 05-15 12:24: 35 Yes 25mg Take 25 mg by mouth daily. [facility] enalapril 20 mg tablet 05-15 12:24: 35 Yes 25mg Take 25 mg by mouth daily. [facility] enalapril 20 mg tablet 05-15 12:24: 35 Yes 25mg Take 25 mg by mouth daily. [facility] enalapril 20 mg tablet 05-15 12:24: 35 Yes 25mg Take 25 mg by mouth daily. [facility] enalapril 20 mg tablet 05-15 12:24: 35 Yes 25mg Take 25 mg by mouth daily. [facility] enalapril 20 mg tablet 05-15 12:24: 35 Yes 25mg Take 25 mg by mouth daily. [facility] enalapril 20 mg tablet 05-15 12:24: 35 Yes 25mg Take 25 mg by mouth daily. [facility] enalapril 20 mg tablet 05-15 12:24: 35 Yes 25mg Take 25 mg by mouth daily. [facility] enalapril 20 mg tablet 05-15 12:24: 35 Yes 25mg Take 25 mg by mouth daily. [facility] FENTanyl (ACTIQ) lollipop 600 mcg 05-08 19:45: 00 05-08 18:59 :00 No [id number] 600ug 600 mcg, Buccal, ONCE, 1 dose, [facility] 05/08/21 at 1445, Routine [facility] sulfamethox azole-trime thoprim (BACTRIM DS) 800-160 mg per tablet 05-08 00:00: 00 05-16 04:59 :00 No [id number] 1{tbl} Take 1 tablet by mouth 2 (two) times daily for 7 days. [facility] sulfamethox azole-trime thoprim (BACTRIM DS) 800-160 mg per tablet 05-08 00:00: 00 05-16 04:59 :00 No [id number] 1{tbl} Take 1 tablet by mouth 2 (two) times daily for 7 days. [facility] HYDROcodone -acetaminop hen (NORCO) 10-325 mg tablet 1 tablet 05-06 09:45: 00 05-06 08:44 :00 No 1{tbl} 1 tablet, Oral, ONCE, 1 dose, [place] 05/06/21 at 0445, Routine [facility] sulfamethox azole-trime thoprim 800-160 mg per tablet 05-06 00:00: 00 Yes [id number] 1{tbl} Take 1 tablet by mouth every 12 (twelve) hours. [facility] sulfamethox azole-trime thoprim 800-160 mg per tablet 05-06 00:00: 00 Yes [id number] 1{tbl} Take 1 tablet by mouth every 12 (twelve) hours. [facility] sulfamethox azole-trime thoprim 800-160 mg per tablet 05-06 00:00: 00 Yes [id number] 1{tbl} Take 1 tablet by mouth every 12 (twelve) hours. [facility] sulfamethox azole-trime thoprim 800-160 mg per tablet 18 00:00: 00 Yes [id number] 1{tbl} Take 1 tablet by mouth every 12 (twelve) hours. [facility] sulfamethox azole-trime thoprim 800-160 mg per tablet 0 05-06 00:00: 00 Yes [id number] 1{tbl} Take 1 tablet by mouth every 12 (twelve) hours. [facility] sulfamethox azole-trime thoprim 800-160 mg per tablet 05-06 00:00: 00 Yes [id number] 1{tbl} Take 1 tablet by mouth every 12 (twelve) hours. [facility] sulfamethox azole-trime thoprim 800-160 mg per tablet 05-06 00:00: 00 Yes [id number] 1{tbl} Take 1 tablet by mouth every 12 (twelve) hours. [facility] sulfamethox azole-trime thoprim 800-160 mg per tablet 05-06 00:00: 00 Yes [id number] 1{tbl} Take 1 tablet by mouth every 12 (twelve) hours. [facility] sulfamethox azole-trime thoprim 800-160 mg per tablet 05-06 00:00: 00 Yes [id number] 1{tbl} Take 1 tablet by mouth every 12 (twelve) hours. [facility] sulfamethox azole-trime thoprim 800-160 mg per tablet 0 18 00:00: 00 Yes [id number] 1{tbl} Take 1 tablet by mouth every 12 (twelve) hours. [facility] sulfamethox azole-trime thoprim 800-160 mg per tablet 0 18 00:00: 00 Yes [id number] 1{tbl} Take 1 tablet by mouth every 12 (twelve) hours. [facility] sulfamethox azole-trime thoprim 800-160 mg per tablet 0 18 00:00: 00 Yes [id number] 1{tbl} Take 1 tablet by mouth every 12 (twelve) hours. [facility] sulfamethox azole-trime thoprim 800-160 mg per tablet 0 18 00:00: 00 Yes [id number] 1{tbl} Take 1 tablet by mouth every 12 (twelve) hours. [facility] sulfamethox azole-trime thoprim 800-160 mg per tablet 0 18 00:00: 00 Yes [id number] 1{tbl} Take 1 tablet by mouth every 12 (twelve) hours. [facility] sulfamethox azole-trime thoprim 800-160 mg per tablet 05-06 00:00: 00 Yes [id number] 1{tbl} Take 1 tablet by mouth every 12 (twelve) hours. [facility] sulfamethox azole-trime thoprim 800-160 mg per tablet 05-06 00:00: 00 Yes [id number] 1{tbl} Take 1 tablet by mouth every 12 (twelve) hours. [facility] sulfamethox azole-trime thoprim 800-160 mg per tablet 05-06 00:00: 00 Yes [id number] 1{tbl} Take 1 tablet by mouth every 12 (twelve) hours. [facility] sulfamethox azole-trime thoprim 800-160 mg per tablet 0 05-06 00:00: 00 Yes [id number] 1{tbl} Take 1 tablet by mouth every 12 (twelve) hours. [facility] sulfamethox azole-trime thoprim 800-160 mg per tablet 0 18 00:00: 00 Yes [id number] 1{tbl} Take 1 tablet by mouth every 12 (twelve) hours. [facility] sulfamethox azole-trime thoprim 800-160 mg per tablet 0 18 00:00: 00 Yes [id number] 1{tbl} Take 1 tablet by mouth every 12 (twelve) hours. [facility] sulfamethox azole-trime thoprim 800-160 mg per tablet 0 7-18 00:00: 00 Yes [id number] 1{tbl} Take 1 tablet by mouth every 12 (twelve) hours. [facility] sulfamethox azole-trime thoprim 800-160 mg per tablet 05-06 00:00: 00 Yes [id number] 1{tbl} Take 1 tablet by mouth every 12 (twelve) hours. [facility] HYDROcodone -acetaminop hen 5-325 mg tablet 05-06 00:00: 00 05-14 04:59 :00 No [id number] 1{tbl} Take 1 tablet by mouth every 4 (four) hours as needed for Pain (scale 7-10) for up to 7 days. Indication s: acute pain [facility] HYDROcodone -acetaminop hen 5-325 mg tablet 05-06 00:00: 00 05-14 04:59 :00 No [id number] 1{tbl} Take 1 tablet by mouth every 4 (four) hours as needed for Pain (scale 7-10) for up to 7 days. Indication s: acute pain [facility] ketorolac (TORADOL) injection 30 mg 03-15 06:30: 00 03-15 05:44 :00 No 30mg 30 mg, Slow IV Push, ONCE, 1 dose, [facility] 03/15/21 at 0130, Routine
biology faculty member approving Restricted medication : CHAPITO CONTRERAS [facility] enalapril 20 mg tablet 03-15 06:19: 47 Yes 25mg Take 25 mg by mouth daily. [facility] levothyroxi ne 200 mcg tablet 03-15 06:19: 47 Yes 300ug Take 300 mcg by mouth every morning. [facility] enalapril 20 mg tablet 03-15 06:19: 47 Yes 25mg Take 25 mg by mouth daily. [facility] levothyroxi ne 200 mcg tablet 03-15 06:19: 47 Yes 300ug Take 300 mcg by mouth every morning. [facility] enalapril 20 mg tablet 03-15 06:19: 47 Yes 25mg Take 25 mg by mouth daily. [facility] levothyroxi ne 200 mcg tablet 03-15 06:19: 47 Yes 300ug Take 300 mcg by mouth every morning. [facility] iopamidol (ISOVUE 370-500 mL) injection 120 mL 03-15 06:00: 00 03-15 06:00 :00 No [id number] 120mL 120 mL, Intravenou s, ONCE, 1 dose, Ale 03/15/21 at 0100, Routine [facility] KCL (KLOR-CON M20) tablet 40 mEq 03-15 05:45: 00 03-15 05:01 :00 No 40meq 40 mEq, Oral, ONCE, 1 dose, Ale 03/15/21 at 0045, Routine [facility] ondansetron (ZOFRAN (PF)) injection 4 mg 03-15 05:30: 00 03-15 04:32 :00 No 4mg 4 mg, Slow IV Push, ONCE, 1 dose, Ale 03/15/21 at 0030, FAWN [facility] FENTanyl PF (SUBLIMAZE (PF)) injection 75 mcg 03-15 05:30: 00 03-15 04:32 :00 No 75ug 75 mcg, Slow IV Push, ONCE, 1 dose, Ale 03/15/21 at 0030, Routine [facility] traMADoL (ULTRAM) 50 mg tablet 03-15 00:00: 00 Yes [id number] 50mg Take 1 tablet by mouth every 6 (six) hours as needed for Pain (scale 4-6) or Pain (scale 7-10). Indication s: acute pain [facility] methocarbam oL 500 mg tablet 03-15 00:00: 00 Yes [id number] 500mg Take 1 tablet by mouth every 6 (six) hours as needed (MUSCLE SPASM). [facility] traMADoL (ULTRAM) 50 mg tablet 03-15 00:00: 00 Yes [id number] 50mg Take 1 tablet by mouth every 6 (six) hours as needed for Pain (scale 4-6) or Pain (scale 7-10). Indication s: acute pain [facility] methocarbam oL 500 mg tablet 03-15 00:00: 00 Yes [id number] 500mg Take 1 tablet by mouth every 6 (six) hours as needed (MUSCLE SPASM). [facility] tra[facility]AD[facility] (ULTRAM) 50 mg tablet 03-15 00:00: 00 Yes [id number] 50mg Take 1 tablet by mouth every 6 (six) hours as needed for Pain (scale 4-6) or Pain (scale 7-10). Indication s: acute pain [facility] methocarbam oL 500 mg tablet 03-15 00:00: 00 Yes [id number] 500mg Take 1 tablet by mouth every 6 (six) hours as needed (MUSCLE SPASM). [facility] traMADoL (ULTRAM) 50 mg tablet 03-15 00:00: 00 Yes [id number] 50mg Take 1 tablet by mouth every 6 (six) hours as needed for Pain (scale 4-6) or Pain (scale 7-10). Indication s: [facility] mg tablet 03-15 00:00: 00 Yes [id number] 500mg Take 1 tablet by mouth every 6 (six) hours as needed (MUSCLE SPASM). [facility] traMADoL (ULTRAM) 50 mg tablet 03-15 00:00: 00 Yes [id number] 50mg Take 1 tablet by mouth every 6 (six) hours as needed for Pain (scale 4-6) or Pain (scale 7-10). Indication s: acute pain [facility] methocarbam oL 500 mg tablet 03-15 00:00: 00 Yes [id number] 500mg Take 1 tablet by mouth every 6 (six) hours as needed (MUSCLE SPASM). [facility] traMADoL (ULTRAM) 50 mg tablet 03-15 00:00: 00 Yes [id number] 50mg Take 1 tablet by mouth every 6 (six) hours as needed for Pain (scale 4-6) or Pain (scale 7-10). Indication s: acute pain [facility] methocarbam oL 500 mg tablet 03-15 00:00: 00 Yes [id number] 500mg Take 1 tablet by mouth every 6 (six) hours as needed (MUSCLE SPASM). [facility] traMADoL (ULTRAM) 50 mg tablet 03-15 00:00: 00 Yes [id number] 50mg Take 1 tablet by mouth every 6 (six) hours as needed for Pain (scale 4-6) or Pain (scale 7-10). Indication s: acute pain [facility] ibuprofen 800 mg tablet 03-15 00:00: 00 Yes [id number] 800mg Take 1 tablet by mouth every 8 (eight) hours as needed for Pain (scale 4-6). [facility] methocarbam oL 500 mg tablet 03-15 00:00: 00 Yes [id number] 500mg Take 1 tablet by mouth every 6 (six) hours as needed (MUSCLE SPASM). [facility] traMADoL (ULTRAM) 50 mg tablet 03-15 00:00: 00 Yes [id number] 50mg Take 1 tablet by mouth every 6 (six) hours as needed for Pain (scale 4-6) or Pain (scale 7-10). Indication s: acute pain [facility] ibuprofen 800 mg tablet 03-15 00:00: 00 Yes [id number] 800mg Take 1 tablet by mouth every 8 (eight) hours as needed for Pain (scale 4-6). [facility] methocarbam oL 500 mg tablet 03-15 00:00: 00 Yes [id number] 500mg Take 1 tablet by mouth every 6 (six) hours as needed (MUSCLE SPASM). [facility] traMADoL (ULTRAM) 50 mg tablet 03-15 00:00: 00 Yes [id number] 50mg Take 1 tablet by mouth every 6 (six) hours as needed for Pain (scale 4-6) or Pain (scale 7-10). Indication s: acute pain [facility] ibuprofen 800 mg tablet 03-15 00:00: 00 Yes [id number] 800mg Take 1 tablet by mouth every 8 (eight) hours as needed for Pain (scale 4-6). [facility] methocarbam oL 500 mg tablet 03-15 00:00: 00 Yes [id number] 500mg Take 1 tablet by mouth every 6 (six) hours as needed (MUSCLE SPASM). [facility] traMADoL (ULTRAM) 50 mg tablet 03-15 00:00: 00 Yes [id number] 50mg Take 1 tablet by mouth every 6 (six) hours as needed for Pain (scale 4-6) or Pain (scale 7-10). Indication s: acute pain [facility] ibuprofen 800 mg tablet 03-15 00:00: 00 Yes [id number] 800mg Take 1 tablet by mouth every 8 (eight) hours as needed for Pain (scale 4-6). [facility] methocarbam oL 500 mg tablet 03-15 00:00: 00 Yes [id number] 500mg Take 1 tablet by mouth every 6 (six) hours as needed (MUSCLE SPASM). [facility] traMADoL (ULTRAM) 50 mg tablet 03-15 00:00: 00 Yes [id number] 50mg Take 1 tablet by mouth every 6 (six) hours as needed for Pain (scale 4-6) or Pain (scale 7-10). Indication s: acute pain [facility] ibuprofen 800 mg tablet 03-15 00:00: 00 Yes [id number] 800mg Take 1 tablet by mouth every 8 (eight) hours as needed for Pain (scale 4-6). [facility] methocarbam oL 500 mg tablet 03-15 00:00: 00 Yes [id number] 500mg Take 1 tablet by mouth every 6 (six) hours as needed (MUSCLE SPASM). [facility] traMADoL (ULTRAM) 50 mg tablet 03-15 00:00: 00 Yes [id number] 50mg Take 1 tablet by mouth every 6 (six) hours as needed for Pain (scale 4-6) or Pain (scale 7-10). Indication s: acute pain [facility] ibuprofen 800 mg tablet 03-15 00:00: 00 Yes [id number] 800mg Take 1 tablet by mouth every 8 (eight) hours as needed for Pain (scale 4-6). [facility] methocarbam oL 500 mg tablet 03-15 00:00: 00 Yes [id number] 500mg Take 1 tablet by mouth every 6 (six) hours as needed (MUSCLE SPASM). [facility] traMADoL (ULTRAM) 50 mg tablet 03-15 00:00: 00 Yes [id number] 50mg Take 1 tablet by mouth every 6 (six) hours as needed for Pain (scale 4-6) or Pain (scale 7-10). Indication s: acute pain [facility] ibuprofen 800 mg tablet 03-15 00:00: 00 Yes [id number] 800mg Take 1 tablet by mouth every 8 (eight) hours as needed for Pain (scale 4-6). [facility] methocarbam oL 500 mg tablet 03-15 00:00: 00 Yes [id number] 500mg Take 1 tablet by mouth every 6 (six) hours as needed (MUSCLE SPASM). [facility] traMADoL (ULTRAM) 50 mg tablet 03-15 00:00: 00 Yes [id number] 50mg Take 1 tablet by mouth every 6 (six) hours as needed for Pain (scale 4-6) or Pain (scale 7-10). Indication s: acute pain [facility] ibuprofen 800 mg tablet 03-15 00:00: 00 Yes [id number] 800mg Take 1 tablet by mouth every 8 (eight) hours as needed for Pain (scale 4-6). [facility] methocarbam oL 500 mg tablet 03-15 00:00: 00 Yes [id number] 500mg Take 1 tablet by mouth every 6 (six) hours as needed (MUSCLE SPASM). [facility] traMADoL (ULTRAM) 50 mg tablet 03-15 00:00: 00 Yes [id number] 50mg Take 1 tablet by mouth every 6 (six) hours as needed for Pain (scale 4-6) or Pain (scale 7-10). Indication s: acute pain [facility] ibuprofen 800 mg tablet 03-15 00:00: 00 Yes [id number] 800mg Take 1 tablet by mouth every 8 (eight) hours as needed for Pain (scale 4-6). [facility] methocarbam oL 500 mg tablet 03-15 00:00: 00 Yes [id number] 500mg Take 1 tablet by mouth every 6 (six) hours as needed (MUSCLE SPASM). [facility] traMADoL (ULTRAM) 50 mg tablet 03-15 00:00: 00 Yes [id number] 50mg Take 1 tablet by mouth every 6 (six) hours as needed for Pain (scale 4-6) or Pain (scale 7-10). Indication s: acute pain [facility] ibuprofen 800 mg tablet 03-15 00:00: 00 Yes [id number] 800mg Take 1 tablet by mouth every 8 (eight) hours as needed for Pain (scale 4-6). [facility] methocarbam oL 500 mg tablet 03-15 00:00: 00 Yes [id number] 500mg Take 1 tablet by mouth every 6 (six) hours as needed (MUSCLE SPASM). [facility] traMADoL (ULTRAM) 50 mg tablet 03-15 00:00: 00 Yes [id number] 50mg Take 1 tablet by mouth every 6 (six) hours as needed for Pain (scale 4-6) or Pain (scale 7-10). Indication s: acute pain [facility] ibuprofen 800 mg tablet 03-15 00:00: 00 Yes [id number] 800mg Take 1 tablet by mouth every 8 (eight) hours as needed for Pain (scale 4-6). [facility] methocarbam oL 500 mg tablet 03-15 00:00: 00 Yes [id number] 500mg Take 1 tablet by mouth every 6 (six) hours as needed (MUSCLE SPASM). [facility] traMADoL (ULTRAM) 50 mg tablet 03-15 00:00: 00 Yes [id number] 50mg Take 1 tablet by mouth every 6 (six) hours as needed for Pain (scale 4-6) or Pain (scale 7-10). Indication s: acute pain [facility] ibuprofen 800 mg tablet 03-15 00:00: 00 Yes [id number] 800mg Take 1 tablet by mouth every 8 (eight) hours as needed for Pain (scale 4-6). [facility] methocarbam oL 500 mg tablet 03-15 00:00: 00 Yes [id number] 500mg Take 1 tablet by mouth every 6 (six) hours as needed (MUSCLE SPASM). [facility] traMADoL (ULTRAM) 50 mg tablet 03-15 00:00: 00 Yes [id number] 50mg Take 1 tablet by mouth every 6 (six) hours as needed for Pain (scale 4-6) or Pain (scale 7-10). Indication s: acute pain [facility] ibuprofen 800 mg tablet 03-15 00:00: 00 Yes [id number] 800mg Take 1 tablet by mouth every 8 (eight) hours as needed for Pain (scale 4-6). [facility] methocarbam oL 500 mg tablet 03-15 00:00: 00 Yes [id number] 500mg Take 1 tablet by mouth every 6 (six) hours as needed (MUSCLE SPASM). [facility] traMADoL (ULTRAM) 50 mg tablet 03-15 00:00: 00 Yes [id number] 50mg Take 1 tablet by mouth every 6 (six) hours as needed for Pain (scale 4-6) or Pain (scale 7-10). Indication s: acute pain [facility] ibuprofen 800 mg tablet 03-15 00:00: 00 Yes [id number] 800mg Take 1 tablet by mouth every 8 (eight) hours as needed for Pain (scale 4-6). [facility] methocarbam oL 500 mg tablet 03-15 00:00: 00 Yes [id number] 500mg Take 1 tablet by mouth every 6 (six) hours as needed (MUSCLE SPASM). [facility] traMADoL (ULTRAM) 50 mg tablet 03-15 00:00: 00 Yes [id number] 50mg Take 1 tablet by mouth every 6 (six) hours as needed for Pain (scale 4-6) or Pain (scale 7-10). Indication s: acute pain [facility] methocarbam oL 500 mg tablet 03-15 00:00: 00 Yes [id number] 500mg Take 1 tablet by mouth every 6 (six) hours as needed (MUSCLE SPASM). [facility] traMADoL (ULTRAM) 50 mg tablet 03-15 00:00: 00 Yes [id number] 50mg Take 1 tablet by mouth every 6 (six) hours as needed for Pain (scale 4-6) or Pain (scale 7-10). Indication s: acute pain [facility] methocarbam oL 500 mg tablet 03-15 00:00: 00 Yes [id number] 500mg Take 1 tablet by mouth every 6 (six) hours as needed (MUSCLE SPASM). [facility] traMADoL (ULTRAM) 50 mg tablet 03-15 00:00: 00 Yes [id number] 50mg Take 1 tablet by mouth every 6 (six) hours as needed for Pain (scale 4-6) or Pain (scale 7-10). Indication s: acute pain [facility] methocarbam oL 500 mg tablet 03-15 00:00: 00 Yes [id number] 500mg Take 1 tablet by mouth every 6 (six) hours as needed (MUSCLE SPASM). [facility] ibuprofen 800 mg tablet 03-15 00:00: 00 02-20 00:00 :00 No [id number] 800mg Take 1 tablet by mouth every 8 (eight) hours as needed for Pain (scale 4-6). [facility] pantoprazol e (PROTONIX) 80 mg in NaCl 0.9% (NS) 20 mL syringe 2019-10 00:15: 00 09-08 23:17 :00 No 80mg 80 mg, IV Push, ONCE, 1 dose, Fri09/08/20 at 1815, 20 mL [facility] maalox:diph enhydrAMINE :lidocaine2 %viscous 1:1:1: suspension (COMPOUNDED ) 2019-10 00:15: 00 09-08 23:16 :00 No 15mL 15 mL, Oral, ONCE, 1 dose, Fri09/08/20 at 1815, Routine [facility] sucralfate 1 gram tablet 2019-10 00:00: 00 Yes [id number] 1g Take 1 tablet by mouth before meals and at bedtime. [facility] dicyclomine (BENTYL) 10 mg capsule 2019-10 00:00: 00 Yes [id number] 10mg Take 1 capsule by mouth every 8 (eight) hours as needed for Abdominal pain. [facility] ondansetron 4 mg disintegrat ing tablet 2019-10 00:00: 00 Yes [id number] 4mg Take 1 tablet by mouth every 8 (eight) hours as needed for Nausea and Vomiting (N/V). [facility] sucralfate 1 gram tablet 2019-10 00:00: 00 03-14 00:00 :00 No [id number] 1g Take 1 tablet by mouth before meals and at bedtime. [facility] dicyclomine (BENTYL) 10 mg capsule 2019-10 00:00: 00 03-14 00:00 :00 No [id number] 10mg Take 1 capsule by mouth every 8 (eight) hours as needed for Abdominal pain. [facility] ondansetron 4 mg disintegrat ing tablet 2019-10 00:00: 00 03-14 00:00 :00 No [id number] 4mg Take 1 tablet by mouth every 8 (eight) hours as needed for Nausea and Vomiting (N/V). [facility] omeprazole 20 mg capsule 2019-10 00:00: 00 10-09 05:59 :00 No [id number] 20mg Take 1 capsule by mouth daily for 30 days. [facility] ketorolac (TORADOL) injection 30 mg 2019-10 20:15: 00 09-06 19:14 :00 No 30mg 30 mg, Slow IV Push, ONCE, 1 dose, Fri09/06/20 at 1415, FAWN
Fa culty member approving Restricted medication : Nidia SOLANO [facility] FENTanyl PF (SUBLIMAZE (PF)) injection 50 mcg 2019-10 18:45: 00 09-06 17:38 :00 No 50ug 50 mcg, Slow IV Push, ONCE, 1 dose, Fri09/06/20 at 1245, STAT [facility] iohexol (OMNIPAQUE 350 BULK-500 mL) injection 150 mL 2019-10 18:15: 00 09-06 17:00 :00 No 150mL 150 mL, Intravenou s, ONCE, 1 dose, Fri09/06/20 at 1215, Routine [facility] ondansetron (ZOFRAN (PF)) injection 4 mg 2019-10 17:30: 00 09-06 16:33 :00 No 4mg 4 mg, Slow IV Push, ONCE, 1 dose, Fri09/06/20 at 1130, FAWN [facility] morpHINE injection 4 mg 2019-10 17:30: 00 09-06 16:33 :00 No 4mg 4 mg, Slow IV Push, ONCE, 1 dose, Fri09/06/20 at 1130, STAT [facility] ibuprofen 600 mg tablet 2019-10 00:00: 00 Yes [id number] 600mg Take 1 tablet by mouth every 6 (six) hours as needed for Pain (scale 4-6). [facility] ibuprofen 600 mg tablet 2019-10 00:00: 00 Yes [id number] 600mg Take 1 tablet by mouth every 6 (six) hours as needed for Pain (scale 4-6). [facility] ibuprofen 600 mg tablet 2019-10 00:00: 00 03-14 00:00 :00 No [id number] 600mg Take 1 tablet by mouth every 6 (six) hours as needed for Pain (scale 4-6). [facility] Polyethylen e Glycol 3350 (MIRALAX) powder 17 g 2019-10 13:00: 00 08-30 11:55 :00 No 17g 17 g, Oral, ONCE, 1 dose, Fri08/30/20 at 0700, Routine [facility] aspirin 81 mg chewable tablet 2019-10 00:00: 00 09-30 05:59 :00 No [id number] 81mg Take 1 tablet by mouth daily for 30 days. [facility] aspirin 81 mg chewable tablet 2019-10 00:00: 00 09-30 05:59 :00 No [id number] 81mg Take 1 tablet by mouth daily for 30 days. [facility] aspirin 81 mg chewable tablet 2019-10 00:00: 00 09-30 05:59 :00 No [id number] 81mg Take 1 tablet by mouth daily for 30 days. [facility] aspirin 81 mg chewable tablet 2019-10 00:00: 00 09-30 05:59 :00 No [id number] 81mg Take 1 tablet by mouth daily for 30 days. [facility] levothyroxi ne 125 mcg tablet 2019-10 23:22: 41 08-29 00:00 :00 No 300ug Take 300 mcg by mouth every morning. [facility] lisinopriL 30 mg tablet 2019-10 23:22: 41 08-29 00:00 :00 No 25mg Take 25 mg by mouth daily. [facility] ondansetron (ZOFRAN (PF)) injection 4 mg 2019-10 23:15: 07 08-31 23:14 :07 No 4mg 4 mg, Slow IV Push, Q6HPRN, Starting Fri08/29/20 at 1715, Until Fri08/31/20 at 1714, Routine, Nausea and Vomiting (N/V) [facility] morpHINE injection 2 mg 2019-10 22:49: 42 08-30 22:48 :42 No 2mg 2 mg, Slow IV Push, Q4HPRN, Starting Fri08/29/20 at 1649, Until Fri08/30/20 at 1648, Routine, Pain (scale 7-10) [facility] ondansetron (ZOFRAN (PF)) injection 4 mg 2019-10 18:03: 34 08-29 22:50 :21 No 4mg 4 mg, Slow IV Push, Q6HPRN, Starting Fri08/29/20 at 1203, Until Fri08/29/20 at 1650, Routine, Nausea and Vomiting (N/V) [facility] ibuprofen (IBU) tablet 600 mg 2019-10 18:00: 00 Yes 600mg 600 mg, Oral, Q6H, First dose on Fri08/29/20 at 1200, Until Discontinu ed, Routine [facility] acetaminoph en (TYLENOL) tablet 500 mg 2019-10 18:00: 00 Yes 500mg 500 mg, Oral, Q6H, First dose on Fri08/29/20 at 1200, Until Discontinu ed, Routine [facility] lactated ringers IV infusion 1,000 mL 2019-10 17:00: 00 Yes 1000mL at 75 mL/hr, 1,000 mL, IV Infusion, CONTINUOUS , Starting Fri08/29/20 at 1100, Until Discontinu ed, Routine, PACU [facility] FENTanyl PF (SUBLIMAZE (PF)) injection 25 mcg 2019-10 16:57: 53 08-29 17:58 :11 No 25ug 25 mcg, Slow IV Push, Q5MIN PRN, 4 doses, Starting Fri08/29/20 at 1057, Until Fri08/29/20 at 1158, Routine, Pain (scale 4-6), PACU [facility] ondansetron (ZOFRAN (PF)) injection 4 mg 2019-10 16:57: 53 08-29 17:13 :00 No 4mg 4 mg, Slow IV Push, PRN, 1 dose, Starting Fri08/29/20 at 1057, Until Fri08/29/20 at 1113, Routine, Nausea and Vomiting (N/V), PACU [facility] traMADoL (ULTRAM) tablet 100 mg 2019-10 16:11: 10 08-29 22:51 :09 No 100mg 100 mg, Oral, Q6HPRN, Starting Fri08/29/20 at 1011, Until Fri08/29/20 at 1651, Routine, Pain (scale 7-10) [facility] traMADoL (ULTRAM) tablet 50 mg 2019-10 16:10: 52 Yes 50mg 50 mg, Oral, Q6HPRN, Starting Fri08/29/20 at 1010, Until Discontinu ed, Routine, Pain (scale 4-6) [facility] acetaminoph en ADULT (OFIRMEV) injection 1,000 mg 2019-10 00:15: 00 08-29 16:11 :33 No 1000mg 1,000 mg, IV Infusion, Administer over 15 Minutes, Q6H ABX, 4 doses, First dose on Fri08/28/20 at 1815, Last dose on Fri08/29/20 at 1215, Routine
Indicatio n: Non-periop erative Patient
Approved by: Per Policy (NPO Status) [facility] metroNIDAZO LE in NaCl (iso-os) (FLAGYL I.V.) RTU IV infusion 500 mg 2019-10 00:15: 00 08-29 16:11 :42 No 500mg 500 mg, IV Infusion, Q8H ABX, First dose on Fri08/28/20 at 1815, Until Discontinu ed, 100 mL
Reas on for Anti-Infec tive: Empiric Therapy for Suspected Infection< br>Empiric Therapy Site: Abdominal< br>Duratio n of therapy: 7 days [facility] levoFLOXaci n in D5W (LEVAQUIN) 750 mg/150 mL Piggyback 750 mg 2019-10 00:15: 00 08-29 16:11 :42 No 750mg 750 mg, IV Piggyback, Administer over 90 Minutes, Q24H ABX, First dose on Fri08/28/20 at 1815, Until Discontinu ed, FAWN
Re ason for Anti-Infec tive: Empiric Therapy for Suspected Infection< br>Empiric Therapy Site: Abdominal< br>Duratio n of therapy: 72 hours [facility] levothyroxi ne 125 mcg tablet 2019-10 00:00: 00 09-29 05:59 :00 No [id number] 312.5ug Take 2.5 tablets by mouth every morning for 30 days. [facility] lisinopriL 30 mg tablet 2019-10 00:00: 09-29 05:59 :00 No [id number] 30mg Take 1 tablet by mouth daily for 30 days. [facility] pantoprazol e (PROTONIX) 40 mg EC tablet 2019-10 00:00: 09-29 05:59 :00 No [id number] 40mg Take 1 tablet by mouth daily for 30 days. [facility] levothyroxi ne 125 mcg tablet 2019-10 00:00: 09-29 05:59 :00 No [id number] 312.5ug Take 2.5 tablets by mouth every morning for 30 days. [facility] lisinopriL 30 mg tablet 2019-10 00:00: 09-29 05:59 :00 No [id number] 30mg Take 1 tablet by mouth daily for 30 days. [facility] pantoprazol e (PROTONIX) 40 mg EC tablet 2019-10 00:00: 09-29 05:59 :00 No [id number] 40mg Take 1 tablet by mouth daily for 30 days. [facility] levothyroxi ne 125 mcg tablet 2019-10 00:00: 09-29 05:59 :00 No [id number] 312.5ug Take 2.5 tablets by mouth every morning for 30 days. [facility] lisinopriL 30 mg tablet 2019-10 00:00: 09-29 05:59 :00 No [id number] 30mg Take 1 tablet by mouth daily for 30 days. [facility] pantoprazol e (PROTONIX) 40 mg EC tablet 2019-10 00:00: 09-29 05:59 :00 No [id number] 40mg Take 1 tablet by mouth daily for 30 days. [facility] levothyroxi ne 125 mcg tablet 2019-10 00:00: 09-29 05:59 :00 No [id number] 312.5ug Take 2.5 tablets by mouth every morning for 30 days. [facility] lisinopriL 30 mg tablet 2019-10 00:00: 00 09-29 05:59 :00 No [id number] 30mg Take 1 tablet by mouth daily for 30 days. [facility] [facility] e (PROTONIX) 40 mg EC tablet 2019-10 00:00: 00 09-29 05:59 :00 No [id number] 40mg Take 1 tablet by mouth daily for 30 days. [facility] ibuprofen 800 mg tablet 2019-10 00:00: 00 09-04 05:59 :00 No [id number] 800mg Take 1 tablet by mouth every 8 (eight) hours as needed for Pain (scale 4-6) for up to 5 days. [facility] sulfur hexafluorid e microsphr (LUMASON) injection 5 mL 2019-10 21:30: 00 08-28 16:58 :00 No 5mL 5 mL, Intravenou s, ONCE, 1 dose, Fri08/28/20 at 1530, Routine
biology faculty member approving Restricted medication : DARIAN DAVENPORT [facility] morpHINE injection 4 mg 2019-10 20:09: 08 08-29 16:11 :42 No 4mg 4 mg, Slow IV Push, Q4HPRN, Starting Fri08/28/20 at 1409, Until Fri08/29/20 at 1011, Routine, Pain (scale 7-10) [facility] morpHINE injection 2 mg 2019-10 18:15: 00 08-28 17:20 :00 No 2mg 2 mg, Slow IV Push, ONCE, 1 dose, Fri08/28/20 at 1215, Routine [facility] levothyroxi ne (SYNTHROID) tablet 200 mcg 2019-10 12:00: 00 Yes 200ug 200 mcg, Oral, QAM-0600, First dose (after last modificati on) on Fri08/28/20 at 0600, Until Discontinu ed, Routine [facility] enoxaparin (LOVENOX) injection 40 mg 2019-10 23:00: 00 Yes 40mg 40 mg, Subcutaneo us, DAILY, First dose on 08/27/20 at 1700, Until Discontinu ed, Routine [facility] ketorolac (TORADOL) injection 30 mg 2019-10 15:45: 00 08-27 14:53 :00 No 30mg 30 mg, Slow IV Push, ONCE, 1 dose, 08/27/20 at 0945, Routine
biology faculty member approving Restricted medication : DOMINGO ANNE [facility] lisinopriL (PRINIVIL,Z ESTRIL) tablet 20 mg 2019-10 15:00: 00 Yes 20mg 20 mg, Oral, DAILY, First dose on 08/27/20 at 0900, Until Discontinu ed, Routine [facility] pantoprazol e (PROTONIX) EC tablet 40 mg 2019-10 15:00: 00 Yes 40mg 40 mg, Oral, DAILY, First dose on 08/27/20 at 0900, Until Discontinu ed, Routine [facility] aspirin chewable tablet 81 mg 2019-10 15:00: 00 Yes 81mg 81 mg, Oral, DAILY, First dose on 08/27/20 at 0900, Until Discontinu ed, Routine [facility] levothyroxi ne (SYNTHROID) tablet 300 mcg 2019-10 12:00: 00 08-27 14:38 :59 No 300ug 300 mcg, Oral, QAM-0600, First dose on 08/27/20 at 0600, Until Discontinu ed, Routine [facility] nicotine (NICODERM) 21 mg/24 hr patch 1 Patch 2019-10 08:30: 00 Yes 1{patch } 1 Patch, Topical, Administer over 24 Hours, Q24H, First dose on 08/27/20 at 0230, Until Discontinu ed, Routine [facility] acetaminoph en (TYLENOL) tablet 975 mg 2019-10 08:15: 00 08-27 07:56 :00 No 975mg 975 mg, Oral, ONCE, 1 dose, 08/27/20 at 0215, FAWN [facility] iohexol (OMNIPAQUE 350 BULK-100 mL) injection 120 mL 2019-10 07:45: 00 08-27 07:34 :00 No 120mL 120 mL, Intravenou s, ONCE, 1 dose, [place] 08/27/20 at 0145, Routine [facility] traMADoL (ULTRAM) tablet 50 mg 2019-10 07:16: 43 08-29 07:15 :43 No 50mg 50 mg, Oral, Q8HPRN, Starting [place] 08/27/20 at 0116, Until Tu08/29/20 at 0115, Routine, Pain (scale 4-6) [facility] acetaminoph en (TYLENOL) tablet 650 mg 2019-10 07:16: 41 08-28 23:11 :03 No 650mg 650 mg, Oral, Q6HPRN, Starting [place] 08/27/20 at 0116, Until Fri08/28/20 at 1711, Routine, Pain (scale 1-3) [facility] morpHINE injection 2 mg 2019-10 07:14: 54 08-28 20:09 :18 No 2mg 2 mg, Slow IV Push, Q4HPRN, Starting [place] 08/27/20 at 0114, Until Fri08/28/20 at 1409, Routine, Pain (scale 7-10) [facility] nitroglycer in (NITROSTAT) sublingual tablet 0.4 mg 2019-10 07:03: 30 Yes .4mg 0.4 mg, Sublingual , Q5MIN PRN, Starting [place] 08/27/20 at 0103, Until Discontinu ed, Routine, Chest pain [facility] alum-mag hydroxide-s imeth (MAALOX PLUS / MAG-AL PLUS) 200-200-20 mg/5 mL suspension 30 mL 2019-10 07:02: 48 Yes 30mL 30 mL, Oral, Q6HPRN, Starting [place] 08/27/20 at 0102, Until Discontinu ed, Routine, Indigestio n [facility] aspirin tablet 325 mg 2020-1 1-08 07:00: 00 08-27 06:16 :00 No 325mg 325 mg, Oral, ONCE, 1 dose, 08/27/20 at 0100, STAT [facility] nitroglycer in (NITROSTAT) sublingual tablet 0.4 mg 2019-10 07:00: 00 08-27 06:16 :00 No .4mg 0.4 mg, Sublingual , ONCE, 1 dose, 08[facility]/20 [facility] 0100[facility] 324 mg 07-10 14:00: 00 Yes 324mg 324 mg, Oral, DAILY, First dose on Fri07/10/20 at 0900, Until Discontinu ed, Routine [facility] iohexol (OMNIPAQUE 350 BULK-100 mL) injection 120 mL 07-10 05:15: 00 07-10 05:08 :00 No 120mL 120 mL, Intravenou s, ONCE, 1 dose, Fri07/10/20 at 0015, Routine [facility] codeine-gua ifenesin (ROBITUSSIN AC) 10-100 mg/5 mL solution 10 mL 07-10 04:30: 00 07-10 03:23 :00 No 10mL 10 mL, Oral, ONCE, 1 dose, 07/09/20 at 2330, [facility] LORazepam (ATIVAN) injection 1 mg 07-10 03:45: 00 07-10 03:14 :00 No 1mg 1 mg, Slow IV Push, ONCE, 1 dose, 07/09/20 at 2245, STAT [facility] morpHINE injection 4 mg 07-10 03:30: 00 07-10 03:16 :00 No 4mg 4 mg, Slow IV Push, ONCE, 1 dose, 07/09/20 at 2230, STAT [facility] pantoprazol e (PROTONIX) 40 mg in NaCl 0.9% (NS) 100 mL MINI-BAG 07-10 02:30: 00 07-10 01:48 :00 No 40mg 40 mg, IV Piggyback, ONCE, 1 dose, 07/09/20 at 2130, 100 mL [facility] ondansetron (ZOFRAN (PF)) injection 4 mg 07-10 02:00: 00 07-10 01:03 :00 No 4mg 4 mg, Slow IV Push, ONCE, 1 dose, 07/09/20 at 2100, FAWN [facility] morpHINE injection 4 mg 07-10 02:00: 07-10 01:03 :00 No 4mg 4 mg, Slow IV Push, ONCE, 1 dose, 07/09/20 at 2100, STAT [facility] nitroglycer in (NITROSTAT) sublingual tablet 0.4 mg 07-10 02:00: 00 07-10 01:02 :00 No .4mg 0.4 mg, Sublingual , ONCE, 1 dose, 07/09/20 at 2100, FAWN [facility] pantoprazol e (PROTONIX) 40 mg EC tablet 07-10 00:00: 00 Yes [id number] 40mg Take 1 tablet by mouth daily. [facility] dicyclomine 20 mg tablet 07-10 00:00: 00 Yes [id number] 20mg Take 1 tablet by mouth every 6 (six) hours as needed for Abdominal pain. [facility] benzonatate 200 mg capsule 07-10 00:00: 00 Yes [id number] 200mg Take 1 capsule by mouth 3 (three) times daily as needed for Cough. [facility] pantoprazol e (PROTONIX) 40 mg EC tablet 07-10 00:00: 08-29 00:00 :00 No [id number] 40mg Take 1 tablet by mouth daily. [facility] dicyclomine 20 mg tablet 07-10 00:00: 08-29 00:00 :00 No [id number] 20mg Take 1 tablet by mouth every 6 (six) hours as needed for Abdominal pain. [facility] benzonatate 200 mg capsule 07-10 00:00: 08-29 00:00 :00 No [id number] 200mg Take 1 capsule by mouth 3 (three) times daily as needed for Cough. [facility] ibuprofen 800 mg tablet 2018-10 00:00: 00 Yes [id number] 800mg Take 1 tablet by mouth every 8 (eight) hours as needed for Pain (scale 4-6). [facility] ibuprofen 800 mg tablet 2018-10 00:00: 00 08-29 00:00 :00 No [id number] 800mg Take 1 tablet by mouth every 8 (eight) hours as needed for Pain (scale 4-6). [facility] cyclobenzap rine 5 mg tablet 03-30 00:00: 00 Yes [id number] 5mg Take 1 tablet by mouth 3 (three) times daily as needed for Muscle Spasms. [facility] cyclobenzap rine 5 mg tablet 03-30 00:00: 00 08-29 00:00 :00 No [id number] 5mg Take 1 tablet by mouth 3 (three) times daily as needed for Muscle Spasms. [facility] LORazepam (ATIVAN) 0.5 mg tablet 06-14 00:00: 00 Yes .5mg Take 1 tablet by mouth 2 (two) times daily as needed for Anxiety. [facility] LORazepam (ATIVAN) 0.5 mg tablet 06-14 00:00: 00 08-29 00:00 :00 No .5mg Take 1 tablet by mouth 2 (two) times daily as needed for Anxiety. [facility] levothyroxi ne 125 mcg tablet 05-11 10:32: 30 Yes 125ug Take 125 mcg by mouth every morning. [facility] Vital Signs Vital Name Observation Time Observation Value Comments S heather Systolic blood pressure 2023-11-06 08:00:00 117 mm[Hg] [facility] Diastolic blood pressure 2023-11-06 08:00:00 75 mm[Hg] [facility] Heart rate 2023-11-06 08:00:00 80 /min Panterae [facility] Body temperature 2023-11-06 08:00:00 37 Nano [facility] Respiratory rate 2023-11-06 08:00:00 18 /min [facility] Oxygen saturation in Arterial blood by Pulse oximetry 2023-11-06 08:00:00 97 /min [facility] Body height 2023-11-06 05:50:00 172.7 cm [facility] Body weight 2023-11-06 05:50:00 113.309 kg [facility] BMI 2023-11-06 05:50:00 37.98 kg/m2 [facility] Systolic blood pressure 2023-11-01 10:00:00 142 mm[Hg] [facility] Diastolic blood pressure 2023-11-01 10:00:00 81 mm[Hg] [facility] Heart rate 2023-11-01 10:00:00 79 /min Unive [facility] Body temperature 2023-11-01 10:00:00 37.17 Nano [facility] Respiratory rate 2023-11-01 10:00:00 16 /min [facility] Oxygen saturation in Arterial blood by Pulse oximetry 2023-11-01 10:00:00 94 /min [facility] Body height 2023-11-01 05:37:00 172.7 cm [facility] Body weight 2023-11-01 05:37:00 111.131 kg [facility] BMI 2023-11-01 05:37:00 37.25 kg/m2 [facility] Systolic blood pressure 2023-10-23 08:00:00 140 mm[Hg] [facility] Diastolic blood pressure 2023-10-23 08:00:00 88 mm[Hg] [facility] Heart rate 2023-10-23 08:00:00 89 [facility] Oxygen saturation in Arterial blood by Pulse oximetry 2023-10-23 08:00:00 94 /min [facility] Respiratory rate 2023-10-23 05:53:00 16 /min [facility] Body temperature 2023-10-23 05:45:00 36.72 Nano [facility] Body height 2023-10-23 05:45:00 172.7 cm [facility] Body weight 2023-10-23 05:45:00 113.399 kg [facility] BMI 2023-10-23 05:45:00 38.01 kg/m2 [facility] Systolic blood pressure 2023-09-26 08:00:00 159 mm[Hg] [facility] Diastolic blood pressure 2023-09-26 08:00:00 80 mm[Hg] [facility] Heart rate 2023-09-26 08:00:00 75 /min Unive [facility] Respiratory rate 2023-09-26 08:00:00 20 /min [facility] Oxygen saturation in Arterial blood by Pulse oximetry 2023-09-26 08:00:00 94 /min [facility] Body temperature 2023-09-26 05:02:00 36.72 Nano [facility] Systolic blood pressure 2023-08-24 08:14:00 140 mm[Hg] [facility] Diastolic blood pressure 2023-08-24 08:14:00 73 mm[Hg] [facility] Heart rate 2023-08-24 08:14:00 75 /min Unive [facility] Body temperature 2023-08-24 08:14:00 36.67 Nano [facility] Respiratory rate 2023-08-24 08:14:00 18 /min [facility] Oxygen saturation in Arterial blood by Pulse oximetry 2023-08-24 08:14:00 96 /min [facility] Body height 2023-08-24 03:41:00 172.7 cm [facility] Body weight 2023-08-24 03:41:00 113.399 kg [facility] BMI 2023-08-24 03:41:00 38.01 kg/m2 [facility] Systolic blood pressure 2023-07-07 10:53:00 140 mm[Hg] [facility] Diastolic blood pressure 2023-07-07 10:53:00 83 mm[Hg] [facility] Heart rate 2023-07-07 10:53:00 75 /min Unive [facility] Respiratory rate 2023-07-07 10:53:00 16 /min [facility] Oxygen saturation in Arterial blood by Pulse oximetry 2023-07-07 10:53:00 97 /min [facility] Body temperature 2023-07-07 08:57:00 36.44 Nano [facility] Body height 2023-07-07 08:57:00 172.7 cm [facility] Body weight 2023-07-07 08:57:00 113.399 kg [facility] BMI 2023-07-07 08:57:00 38.01 kg/m2 [facility] Oxygen saturation in Arterial blood by Pulse oximetry 2023-05-26 03:30:00 94 /min [facility] Systolic blood pressure 2023-05-26 03:30:00 140 mm[Hg] [facility] Diastolic blood pressure 2023-05-26 03:30:00 78 mm[Hg] [facility] Heart rate 2023-05-26 03:30:00 80 /min Unive [facility] Respiratory rate 2023-05-26 03:30:00 23 /min [facility] Body temperature 2023-05-26 03:00:00 36.78 Nano [facility] Body weight 2023-05-25 22:19:00 121.564 kg [facility] BMI 2023-05-25 22:19:00 40.75 kg/m2 [facility] Systolic blood pressure 2023-02-21 01:51:00 123 mm[Hg] [facility] Diastolic blood pressure 2023-02-21 01:51:00 74 mm[Hg] [facility] Heart rate 2023-02-20 23:03:00 95 /min [facility] Body temperature 2023-02-20 23:03:00 38.28 Nano [facility] Respiratory rate 2023-02-20 23:03:00 18 /min [facility] Body height 2023-02-20 23:03:00 172.7 cm [facility] Body weight 2023-02-20 23:03:00 121.564 kg [facility] BMI 2023-02-20 23:03:00 40.75 [facility] in Arterial blood by Pulse oximetry 2023-02-20 23:03:00 97 /min [facility] Systolic blood pressure 2022-12-29 10:00:00 142 mm[Hg] [facility] Diastolic blood pressure 2022-12-29 10:00:00 78 mm[Hg] [facility] Heart rate 2022-12-29 10:00:00 71 /min Unive [facility] Oxygen saturation in Arterial blood by Pulse oximetry 2022-12-29 09:57:00 96 /min [facility] Body temperature 2022-12-29 06:35:00 36.89 Nano [facility] Respiratory rate 2022-12-29 06:35:00 20 /min [facility] Body height 2022-12-29 06:35:00 172.7 cm [facility] Body weight 2022-12-29 06:35:00 121.745 kg [facility] BMI 2022-12-29 06:35:00 40.81 kg/m2 [facility] Systolic blood pressure 2022-11-21 08:14:00 162 mm[Hg] [facility] Diastolic blood pressure 2022-11-21 08:14:00 101 mm[Hg] [facility] Heart rate 2022-11-21 08:09:00 92 /min [facility] Body temperature 2022-11-21 08:09:00 37.11 Nano [facility] Respiratory rate 2022-11-21 08:09:00 16 /min [facility] Body height 2022-11-21 08:09:00 172.7 cm [facility] Body weight 2022-11-21 08:09:00 115.667 kg [facility] BMI 2022-11-21 08:09:00 38.77 kg/m2 [facility] Oxygen saturation in Arterial blood by Pulse oximetry 2022-11-21 08:09:00 97 /min [facility] Systolic blood pressure 2022-10-29 07:34:00 167 mm[Hg] [facility] Diastolic blood pressure 2022-10-29 07:34:00 97 mm[Hg] [facility] Heart rate 2022-10-29 07:34:00 93 /min Unive [facility] Body temperature 2022-10-29 07:34:00 37.39 Nano [facility] Respiratory rate 2022-10-29 07:34:00 20 /min [facility] Body height 2022-10-29 07:34:00 172.7 cm [facility] Body weight 2022-10-29 07:34:00 113.399 kg [facility] BMI 2022-10-29 07:34:00 38.01 kg/m2 [facility] Oxygen saturation in Arterial blood by Pulse oximetry 2022-10-29 07:34:00 97 /min [facility] Systolic blood pressure 2022-06-02 05:00:00 165 mm[Hg] [facility] Diastolic blood pressure 2022-06-02 05:00:00 119 mm[Hg] [facility] Heart rate 2022-06-02 05:00:00 74 /min [facility] Respiratory rate 2022-06-02 05:00:00 23 /min [facility] Oxygen saturation in Arterial blood by Pulse oximetry 2022-06-02 05:00:00 95 /min [facility] Body temperature 2022-06-02 04:41:00 36.67 Nano [facility] Systolic blood pressure 2022-05-28 18:36:21 147 mm[Hg] [facility] Diastolic blood pressure 2022-05-28 18:36:21 97 mm[Hg] [facility] Heart rate 2022-05-28 18:36:21 62 /min [facility] Respiratory rate 2022-05-28 18:36:21 18 /min [facility] Oxygen saturation in Arterial blood by Pulse oximetry 2022-05-28 18:36:21 96 /min [facility] Body temperature 2022-05-28 15:06:00 37.22 [facility] Body height 2022-05-28 15:06:00 172.7 cm [facility] Body weight 2022-05-28 15:06:00 124.739 kg [facility] BMI 2022-05-28 15:06:00 41.81 kg/m2 [facility] Systolic blood pressure 2022-05-06 06:42:00 137 mm[Hg] [facility] Diastolic blood pressure 2022-05-06 06:42:00 90 mm[Hg] [facility] Heart rate 2022-05-06 06:42:00 81 /min Unive [facility] Respiratory rate 2022-05-06 06:42:00 16 /min [facility] Oxygen saturation in Arterial blood by Pulse oximetry 2022-05-06 06:42:00 94 /min [facility] Body temperature 2022-05-06 03:30:00 36.78 [facility] Body height 2022-05-06 03:30:00 172.7 cm [facility] Body weight 2022-05-06 03:30:00 117.935 kg [facility] BMI 2022-05-06 03:30:00 39.53 kg/m2 [facility] Systolic blood pressure 2022-05-01 13:30:00 147 mm[Hg] [facility] Diastolic blood pressure 2022-05-01 13:30:00 91 mm[Hg] [facility] Heart rate 2022-05-01 13:30:00 73 /min Unive [facility] Respiratory rate 2022-05-01 13:30:00 17 /min [facility] Oxygen saturation in Arterial blood by Pulse oximetry 2022-05-01 13:30:00 95 /min [facility] Body temperature 2022-05-01 12:28:00 36.78 [facility] Body weight 2022-05-01 12:28:00 121.564 kg [facility] BMI 2022-05-01 12:28:00 40.75 kg/m2 [facility] Systolic blood pressure 2022-02-08 07:00:00 133 mm[Hg] [facility] Diastolic blood pressure 2022-02-08 07:00:00 94 mm[Hg] [facility] Heart rate 2022-02-08 07:00:00 77 /min Unive [facility] Respiratory rate 2022-02-08 07:00:00 21 /min [facility] Oxygen saturation in Arterial blood by Pulse oximetry 2022-02-08 07:00:00 95 /min [facility] Body temperature 2022-02-08 06:04:00 36.5 Nano [facility] Body height 2022-02-08 06:04:00 172.7 cm [facility] Body weight 2022-02-08 06:04:00 113.399 kg [facility] BMI 2022-02-08 06:04:00 38.01 kg/m2 [facility] Systolic blood pressure 2021-10-14 22:36:00 152 mm[Hg] [facility] Diastolic blood pressure 2021-10-14 22:36:00 87 mm[Hg] [facility] Heart rate 2021-10-14 22:36:00 95 /min Unive [facility] Body temperature 2021-10-14 22:36:00 36.94 Nano [facility] Respiratory rate 2021-10-14 22:36:00 18 /min [facility] Body weight 2021-10-14 22:36:00 122.29 kg [facility] BMI 2021-10-14 22:36:00 40.99 kg/m2 [facility] Oxygen saturation in Arterial blood by Pulse oximetry 2021-10-14 22:36:00 97 /min [facility] Systolic blood pressure 2021-05-15 17:15:00 148 mm[Hg] [facility] Diastolic blood pressure 2021-05-15 17:15:00 84 mm[Hg] [facility] Heart rate 2021-05-15 17:15:00 99 /min Unive [facility] Body temperature 2021-05-15 17:15:00 36.5 Nano [facility] Respiratory rate 2021-05-15 17:15:00 20 /min [facility] Body weight 2021-05-15 17:15:00 117.073 kg [facility] BMI 2021-05-15 17:15:00 39.24 kg/m2 [facility] Oxygen saturation in Arterial blood by Pulse oximetry 2021-05-15 17:15:00 97 /min [facility] Systolic blood pressure 2021-05-08 18:10:00 156 mm[Hg] [facility] Diastolic blood pressure 2021-05-08 18:10:00 95 mm[Hg] [facility] Heart rate 2021-05-08 18:10:00 99 [facility] Body temperature 2021-05-08 18:10:00 36.06 Nano [facility] Respiratory rate 2021-05-08 18:10:00 18 /min [facility] Body weight 2021-05-08 18:10:00 116.756 kg [facility] BMI 2021-05-08 18:10:00 39.14 kg/m2 [facility] Oxygen saturation in Arterial blood by Pulse oximetry 2021-05-08 18:10:00 96 /min [facility] Systolic blood pressure 2021-05-06 09:26:00 145 mm[Hg] [facility] Diastolic blood pressure 2021-05-06 09:26:00 93 mm[Hg] [facility] Heart rate 2021-05-06 09:26:00 79 /min [facility] Respiratory rate 2021-05-06 09:26:00 20 /min [facility] Oxygen saturation in Arterial blood by Pulse oximetry 2021-05-06 09:26:00 97 /min [facility] Body temperature 2021-05-06 07:56:00 37.11 Nano [facility] Body height 2021-05-06 07:56:00 172.7 cm [facility] Body weight 2021-05-06 07:56:00 118.434 kg [facility] BMI 2021-05-06 07:56:00 39.70 kg/m2 [facility] Systolic blood pressure 2021-03-15 06:19:00 127 mm[Hg] [facility] Diastolic blood pressure 2021-03-15 06:19:00 79 mm[Hg] [facility] Heart rate 2021-03-15 06:19:00 78 /min Unive [facility] Respiratory rate 2021-03-15 06:19:00 23 /min [facility] Oxygen saturation in Arterial blood by Pulse oximetry 2021-03-15 06:19:00 96 /min [facility] Body temperature 2021-03-15 03:05:45 37 Nano [facility] Body weight 2021-03-15 02:46:00 114.76 kg [facility] BMI 2021-03-15 02:46:00 38.47 kg/m2 [facility] Systolic blood pressure 2021-03-15 06:19:00 127 mm[Hg] [facility] Diastolic blood pressure 2021-03-15 06:19:00 79 mm[Hg] [facility] Heart rate 2021-03-15 06:19:00 78 /min Unive [facility] Respiratory rate 2021-03-15 06:19:00 23 /min [facility] Oxygen saturation in Arterial blood by Pulse oximetry 2021-03-15 06:19:00 96 /min [facility] Body temperature 2021-03-15 03:05:45 37 Nano [facility] Body weight 2021-03-15 02:46:00 114.76 kg [facility] [facility] 2021-03-15 02:46:00 38.47 kg/m2 [facility] Systolic blood pressure 2020-09-09 00:10:00 124 mm[Hg] [facility] Diastolic blood pressure 2020-09-09 00:10:00 77 mm[Hg] [facility] Heart rate 2020-09-09 00:10:00 83 /min [facility] Respiratory rate 2020-09-09 00:10:00 16 /min [facility] Oxygen saturation in Arterial blood by Pulse oximetry 2020-09-09 00:10:00 97 /min [facility] Body temperature 2020-09-08 23:14:00 37.39 Nano [facility] Body weight 2020-09-08 22:49:00 107.956 kg [facility] BMI 2020-09-08 22:49:00 36.19 kg/m2 [facility] Systolic blood pressure 2020-09-09 00:10:00 124 mm[Hg] [facility] Diastolic blood pressure 2020-09-09 00:10:00 77 mm[Hg] [facility] Heart rate 2020-09-09 00:10:00 83 /min [facility] Respiratory rate 2020-09-09 00:10:00 16 /min [facility] Oxygen saturation in Arterial blood by Pulse oximetry 2020-09-09 00:10:00 97 /min [facility] Body temperature 2020-09-08 23:14:00 37.39 [facility] Body weight 2020-09-08 22:49:00 107.956 kg [facility] BMI 2020-09-08 22:49:00 36.19 kg/m2 [facility] Systolic blood pressure 2020-09-06 19:30:00 115 mm[Hg] [facility] Diastolic blood pressure 2020-09-06 19:30:00 65 mm[Hg] [facility] Heart rate 2020-09-06 19:30:00 67 /min [facility] Body temperature 2020-09-06 19:30:00 36.83 Nano [facility] Respiratory rate 2020-09-06 19:30:00 19 /min [facility] Oxygen saturation in Arterial blood by Pulse oximetry 2020-09-06 19:30:00 99 /min [facility] Body weight 2020-09-06 15:41:00 107.956 kg [facility] BMI 2020-09-06 15:41:00 36.19 kg/m2 [facility] Systolic blood pressure 2020-09-06 19:30:00 115 mm[Hg] [facility] Diastolic blood pressure 2020-09-06 19:30:00 65 mm[Hg] [facility] Heart rate 2020-09-06 19:30:00 67 /min [facility] Body temperature 2020-09-06 19:30:00 36.83 Nano [facility] Respiratory rate 2020-09-06 19:30:00 19 /min [facility] Oxygen saturation in Arterial blood by Pulse oximetry 2020-09-06 19:30:00 99 /min [facility] Body weight 2020-09-06 15:41:00 107.956 kg [facility] BMI 2020-09-06 15:41:00 36.19 kg/m2 [facility] Systolic blood pressure 2020-08-30 13:11:00 136 mm[Hg] [facility] Diastolic blood pressure 2020-08-30 13:11:00 77 mm[Hg] [facility] Heart rate 2020-08-30 13:11:00 74 /min [facility] Body temperature 2020-08-30 13:11:00 36.5 Nano [facility] Respiratory rate 2020-08-30 13:11:00 18 /min [facility] Oxygen saturation in Arterial blood by Pulse oximetry 2020-08-30 13:11:00 96 /min [facility] Body weight 2020-08-30 09:00:00 107.956 kg [facility] BMI 2020-08-30 09:00:00 36.19 kg/m2 [facility] Body height 2020-08-27 07:49:00 172.7 cm [facility] Systolic blood pressure 2020-08-30 13:11:00 136 mm[Hg] [facility] Diastolic blood pressure 2020-08-30 13:11:00 77 mm[Hg] [facility] Heart rate 2020-08-30 13:11:00 74 /min [facility] Body temperature 2020-08-30 13:11:00 36.5 Nano [facility] Respiratory rate 2020-08-30 13:11:00 18 /min [facility] Oxygen saturation in Arterial blood by Pulse oximetry 2020-08-30 13:11:00 96 /min [facility] Body weight 2020-08-30 09:00:00 107.956 kg [facility] BMI 2020-08-30 09:00:00 36.19 kg/m2 [facility] Body height 2020-08-27 07:49:00 172.7 cm [facility] Systolic blood pressure 2020-07-10 05:30:00 123 mm[Hg] [facility] Diastolic blood pressure 2020-07-10 05:30:00 77 mm[Hg] [facility] Heart rate 2020-07-10 05:30:00 75 /min [facility] Respiratory rate 2020-07-10 05:30:00 19 /min [facility] Oxygen saturation in Arterial blood by Pulse oximetry 2020-07-10 05:30:00 97 /min [facility] Body temperature 2020-07-10 00:48:00 37.39 Nano [facility] Body height 2020-07-10 00:48:00 172.7 cm [facility] Body weight 2020-07-10 00:43:00 99.791 kg [facility] BMI 2020-07-10 00:43:00 33.45 kg/m2 [facility] Systolic blood pressure 2020-07-10 05:30:00 123 mm[Hg] [facility] Diastolic blood pressure 2020-07-10 05:30:00 77 mm[Hg] [facility] Heart rate 2020-07-10 05:30:00 75 [facility] Respiratory rate 2020-07-10 05:30:00 19 /min [facility] Oxygen saturation in Arterial blood by Pulse oximetry 2020-07-10 05:30:00 97 /min [facility] Body temperature 2020-07-10 00:48:00 37.39 Nano [facility] Body height 2020-07-10 00:48:00 172.7 cm [facility] Body weight 2020-07-10 00:43:00 99.791 kg [facility] BMI 2020-07-10 00:43:00 33.45 kg/m2 [facility] Procedures Procedure Date / Time Performed Performing Clinician Source EKG-12 LEAD 2023-11-06 08:26:13 [facility] LIPASE 2023-11-06 06:15:00 She[facility]Nidia [facility]yer [facility] MAGNESIUM 2023-11-06 06:15:00 [facility]Nidia [facility] COMP. METABOLIC PANEL ([id number]) 2023-11-06 06:15:00 Nidia Solano [facility] CBC WITH DIFF 2023-11-06 06:15:00 Nidia Solano [facility] URINALYSIS 2023-11-06 06:15:00 [facility] CONSENT/REFUSAL FOR DIAGNOSIS AND TREATMENT 2023-11-06 05:40:44 Doctor Unassigned, [place] [facility] CT ABDOMEN PELVIS W CONTRAST 2023-11-01 08:32:40 Jose Francisco Walters [facility] LIPASE 2023-11-01 05:45:00 Jose Francisco Walters [facility] COMP. METABOLIC PANEL ([id number]) 2023-11-01 05:45:00 Jose Francisco Walters [facility] CBC WITH DIFF 2023-11-01 05:45:00 Jose [facility] URINALYSIS 2023-11-01 05:45:00 Jose Francisco Walters [facility] POCT GLUCOSE (AUTOMATED) 2023-11-01 05:41:00 Lena Walters [facility] CONSENT/REFUSAL FOR DIAGNOSIS AND TREATMENT 2023-11-01 05:29:45 Doctor Unassigned, [place] [facility] CT ABDOMEN PELVIS W CONTRAST 2023-10-23 07:06:44 Chapito Contreras [facility] LIPASE 2023-10-23 05:50:00 Chapito Contreras [facility] COMP. METABOLIC PANEL ([id number]) 2023-10-23 05:50:00 Chapito Contreras [facility] CBC WITH DIFF 2023-10-23 05:50:00 Chapito Contreras [facility] URINALYSIS 2023-10-23 05:50:00 Chapito Contreras [facility] CONSENT/REFUSAL FOR DIAGNOSIS AND TREATMENT 2023-10-23 05:34:08 Doctor Unassigned, [place] [facility] URINALYSIS 2023-09-26 06:12:00 [facility] LIPASE 2023-09-26 05:12:00 Jose [facility] HEPATIC FUNCTION PANEL ([id number]) (ALB,T.PRO,BILI T,BU/BC,ALT,AST,ALK PHOS) 2023-09-26 05:12:00 Jose [facility] BASIC METABOLIC PANEL (NA, K, CL, CO2, GLUCOSE, BUN, CREATININE, CA) 2023-09-26 05:12:00 Jose [facility] CBC WITH DIFF 2023-09-26 05:12:00 Jose [facility] NOTICE OF PRIVACY PRACTICES 2023-09-26 04:50:48 Doctor Unassigned, [place] [facility] CONSENT/REFUSAL FOR DIAGNOSIS AND TREATMENT 2023-09-26 04:50:08 Doctor Unassigned, [place] [facility] CT CHEST PULMONARY ANGIOGRAM 2023-08-24 08:02:29 Patrick Vergara [facility] XR CHEST 1 VW 2023-08-24 04:38:16 [facility] TROPONIN I 2023-08-24 04:29:00 Patrick Vergara [facility] COMP. METABOLIC PANEL ([id number]) 2023-08-24 04:29:00 Patrick Vergara [facility] CBC WITH DIFF 2023-08-24 04:29:00 [facility] CONSENT/REFUSAL FOR DIAGNOSIS AND TREATMENT 2023-08-24 03:41:11 Doctor Unassigned, [place] [facility] LIPASE 2023-07-07 09:22:00 Chapito Contreras [facility] TROPONIN I 2023-07-07 09:22:00 [facility] COMP. METABOLIC PANEL ([id number]) 2023-07-07 09:22:00 Chapito Conterras [facility] CBC WITH DIFF 2023-07-07 09:22:00 [facility] 2023-07-07 09:22:00 Chapito Contreras [facility] CONSENT/REFUSAL FOR DIAGNOSIS AND TREATMENT 2023-07-07 08:49:51 Doctor Unassigned, [place] [facility] POCT GLUCOSE (AUTOMATED) 2023-05-26 02:17:00 Nidia Solano [facility] URINALYSIS 2023-05-26 01:24:00 Nidia Solano [facility] POCT GLUCOSE (AUTOMATED) 2023-05-26 01:22:00 Nidia Solano [facility] TROPONIN I 2023-05-26 00:54:00 [facility] COVID-19 (ID NOW RAPID TESTING) 2023-05-26 00:54:00 Nidia Solano [facility] ASSIGNMENT OF BENEFITS 2023-05-26 00:29:59 Docto r Unassigned, [place] [facility] XR CHEST 1 VW 2023-05-25 22:41:21 Nidia Solano [facility] LIPASE 2023-05-25 22:33:00 Nidia Solano [facility] MAGNESIUM 2023-05-25 22:33:00 Nidia Solano [facility] TROPONIN I 2023-05-25 22:33:00 Nidia Solano [facility] COMP. METABOLIC PANEL ([id number]) 2023-05-25 22:33:00 Nidia Solano [facility] CBC WITH DIFF 2023-05-25 22:33:00 Nidia Solano [facility] N-TERMINAL PRO-BNP 2023-05-25 22:33:00 Nidia Solano [facility] CONSENT/REFUSAL FOR DIAGNOSIS AND TREATMENT 2023-05-25 22:07:05 Doctor Unassigned, [place] [facility] COVID-19 (ID NOW RAPID TESTING) 2023-02-20 23:30:00 Sofia Escobar [facility] CONSENT/REFUSAL FOR DIAGNOSIS AND TREATMENT 2023-02-20 22:54:00 Doctor Unassigned, [place] [facility] CT ABDOMEN PELVIS W CONTRAST 2022-12-29 08:28:18 Chapito Contreras [facility] LIPASE 2022-12-29 07:11:00 Chapito Contreras [facility] COMP. METABOLIC PANEL ([id number]) 2022-12-29 07:11:00 Chapito Contreras [facility] CBC WITH DIFF 2022-12-29 07:11:00 Chapito Contreras [facility] URINALYSIS 2022-12-29 07:11:00 Chapito Contreras [facility] CONSENT/REFUSAL FOR DIAGNOSIS AND TREATMENT 2022-12-29 06:24:27 Doctor Unassigned, [place] [facility] CONSENT/REFUSAL FOR DIAGNOSIS AND TREATMENT 2022-11-21 08:05:19 Doctor Unassigned, [place] [facility] RAPID STREP SCREEN FOR GROUP A 2022-10-29 07:36:00 Marie Morales [facility] CONSENT/REFUSAL FOR DIAGNOSIS AND TREATMENT 2022-10-29 07:23:03 Doctor Unassigned, [place] [facility] CONSENT/REFUSAL FOR DIAGNOSIS AND TREATMENT 2022-06-02 04:34:17 Doctor Unassigned, [place] [facility] FREE T4 2022-05-28 16:06:00 [facility] 2022-05-28 16:06:00 Saqib Clarke [facility] COMP. METABOLIC PANEL ([id number]) 2022-05-28 16:06:00 Saqib Clarke [facility] CBC WITH DIFF 2022-05-28 16:06:00 Saqib Clarke [facility] FREE T3 2022-05-28 16:06:00 Saqib [facility] CONSENT/REFUSAL FOR DIAGNOSIS AND TREATMENT 2022-05-28 14:55:38 Doctor Unassigned, [place] [facility] CT ABDOMEN PELVIS W CONTRAST 2022-05-06 06:06:56 Nidia Solano [facility] LIPASE 2022-05-06 05:17:00 Nidia Solano [facility] MAGNESIUM 2022-05-06 05:17:00 [facility] TROPONIN I 2022-05-06 05:17:00 [facility] COMP. METABOLIC PANEL ([id number]) 2022-05-06 05:17:00 Nidia Solano [facility] CBC WITH DIFF 2022-05-06 05:17:00 Nidia Solano [facility] URINALYSIS 2022-05-06 05:17:00 Nidia Solano [facility] RAPID INFLUENZA A/B 2022-05-06 03:48:00 Nidia Solano [facility] COVID-19 (ID NOW RAPID TESTING) 2022-05-06 03:48:00 Nidia Solano [facility] CONSENT/REFUSAL FOR DIAGNOSIS AND TREATMENT 2022-05-06 03:22:49 Doctor Unassigned, [place] [facility] COMP. METABOLIC PANEL ([id number]) 2022-05-01 12:42:00 Saqib Clarke [facility] CBC WITH DIFF 2022-05-01 12:42:00 Saqib Clarke [facility] CONSENT/REFUSAL FOR DIAGNOSIS AND TREATMENT 2022-05-01 12:23:44 Doctor Unassigned, [place] [facility] URINALYSIS 2022-02-08 06:27:00 Benjamin Ashford [facility] URINE DRUG (IMMUNOASSAY) - COMPREHENSIVE DRUG SCREEN W/O REFLEX 2022-02-08 06:27:00 Benjamin Ashford [facility] LIPASE 2022-02-08 06:15:00 Benjamin Ashford [facility] TROPONIN I 2022-02-08 06:15:00 Benjamin Ashford [facility] COMP. METABOLIC PANEL ([id number]) 2022-02-08 06:15:00 Benjamin Ashford [facility] ETHANOL 2022-02-08 06:15:00 Benjamin Ashford [facility] CBC WITH DIFF 2022-02-08 06:15:00 Benjamin Ashford [facility] PROTHROMBIN TIME / INR 2022-02-08 06:15:00 Rukhsana Ashford [facility] ACTIVATED PARTIAL THRMPLAS ELAINE 2022-02-08 06:15:00 Benjamin Ashford [facility] N-TERMINAL PRO-BNP 2022-02-08 06:15:00 Benjamin Ashford [facility] NOTICE OF PRIVACY PRACTICES 2022-02-08 06:01:50 Doctor Unassigned, [place] [facility] CONSENT/REFUSAL FOR DIAGNOSIS AND TREATMENT 2022-02-08 05:59:20 Doctor Unassigned, [place] [facility] CT ABDOMEN PELVIS W CONTRAST 2021-10-15 00:40:39 Marie Morales [facility] LIPASE 2021-10-15 00:26:00 Marie Morales [facility] TROPONIN I 2021-10-15 00:26:00 Marie Morales [facility] COMP. METABOLIC PANEL ([id number]) 2021-10-15 00:26:00 Marie Morales [facility] CBC WITH DIFF 2021-10-15 00:26:00 Marie Morales [facility] NOTICE OF PRIVACY PRACTICES 2021-10-14 22:18:20 Doctor Unassigned, [place] [facility] CONSENT/REFUSAL FOR DIAGNOSIS AND TREATMENT 2021-10-14 22:17:56 Doctor Unassigned, [place] [facility] CT ABDOMEN PELVIS W CONTRAST 2021-03-15 04:54:23 Chapito Contreras [facility] COVID-19 (ID NOW RAPID TESTING) 2021-03-15 03:34:00 Chapito Contreras [facility] URINALYSIS 2021-03-15 03:16:00 Chapito Contreras [facility] COMP. METABOLIC PANEL ([id number]) 2021-03-15 03:11:00 Chapito Contreras [facility] CBC WITH DIFF 2021-03-15 03:11:00 Chapito Contreras [facility] CONSENT/REFUSAL FOR DIAGNOSIS AND TREATMENT 2021-03-15 02:38:38 Doctor Unassigned, [place] [facility] LIPASE 2020-09-08 23:14:00 Saqib [facility] COMP. METABOLIC PANEL ([id number]) 2020-09-08 23:14:00 Singer [facility] CBC WITH DIFF 2020-09-08 23:14:00 Singer [facility] CONSENT/REFUSAL FOR DIAGNOSIS AND TREATMENT 2020-09-08 22:38:49 Doctor Unassigned, [place] [facility] CT ABDOMEN PELVIS W CONTRAST 2020-09-06 17:05:33 Nidia Solano Haily [facility] LACTIC ACID WHOLE BLOOD 2020-09-06 16:31:00 Nidia Solano Haily [facility] LIPASE 2020-09-06 16:11:00 Nidia Sloano [facility] MAGNESIUM 2020-09-06 16:11:00 Nidia Solano [facility] COMP. METABOLIC PANEL ([id number]) 2020-09-06 16:11:00 Nidia Solano [facility] CBC WITH DIFF 2020-09-06 16:11:00 Nidia Solano [facility] NOTICE OF PRIVACY PRACTICES 2020-09-06 15:30:39 Doctor Unassigned, [place] [facility] CONSENT/REFUSAL FOR DIAGNOSIS AND TREATMENT 2020-09-06 15:30:28 Doctor Unassigned, [place] [facility] COMP. METABOLIC PANEL ([id number]) 2020-08-30 08:39:00 Babs Carranza [facility] CBC WITH DIFF 2020-08-30 08:39:00 Babs Carranza [facility] US ABDOMEN COMPLETE 2020-08-28 18:11:06 Patrick No [facility] ECHO ROUTINE W/DOPPLER COLOR 2020-08-28 16:34:45 Oneal [facility] HEPATIC FUNCTION PANEL ([id number]) (ALB,T.PRO,BILI T,BU/BC,ALT,AST,ALK PHOS) 2020-08-28 10:16:00 Favio Chang [facility] BASIC METABOLIC PANEL (NA, K, CL, CO2, GLUCOSE, BUN, CREATININE, CA) 2020-08-28 10:16:00 Oneal [facility] TROPONIN I 2020-08-27 18:11:00 Oneal [facility] POCT GLUCOSE (AUTOMATED) 2020-08-27 18:02:00 Clau No [facility] POCT GLUCOSE (AUTOMATED) 2020-08-27 13:49:00 Clau No [facility] TROPONIN I 2020-08-27 11:35:00 Oneal [facility] CT ABDOMEN PELVIS W WO CONTRAST 2020-08-27 07:38:49 Oneal [facility] COVID-19 (ID NOW RAPID TESTING) 2020-08-27 06:21:00 Dejon [facility] URINALYSIS 2020-08-27 06:20:00 Benjamin Ashford [facility] ADC / LCC - DRUG SCREEN TRIAGE 2020-08-27 06:20:00 Benjamin Ashford [facility] XR CHEST 1 VW 2020-08-27 06:05:42 Benjamin Ashford [facility] LIPASE 2020-08-27 05:58:00 [facility] TROPONIN I 2020-08-27 05:58:00 [facility] THYROID STIMULATING HORMONE 2020-08-27 05:58:00 Oneal [facility] HEPATIC FUNCTION PANEL ([id number]) (ALB,T.PRO,BILI T,BU/BC,ALT,AST,ALK PHOS) 2020-08-27 05:58:00 Benjamin Ashford [facility] BASIC METABOLIC PANEL (NA, K, CL, CO2, GLUCOSE, BUN, CREATININE, CA) 2020-08-27 05:58:00 Benjamin Ashford [facility] LIPID PANEL ([id number])(TOTAL CHOLESTEROL, TRIGLYCERIDES, HDL) 2020-08-27 05:58:00 Gricelda No [facility] ETHANOL 2020-08-27 05:58:00 Benjamin Ashford [facility] CBC WITH DIFF 2020-08-27 05:58:00 Benjamin Ashford [facility] PROTHROMBIN TIME / INR 2020-08-27 05:58:00 Rukhsana Ashford [facility] ACTIVATED PARTIAL THRMPLAS ELAINE 2020-08-27 05:58:00 Benjamin Ashford [facility] EKG-12 LEAD 2020-08-27 05:54:03 Benjamin Ashford [facility] NOTICE OF PRIVACY PRACTICES 2020-08-27 05:44:26 Doctor Unassigned, [place] [facility] CONSENT/REFUSAL FOR DIAGNOSIS AND TREATMENT 2020-08-27 05:43:44 Doctor Unassigned, [place] [facility] CONSENT/REFUSAL FOR DIAGNOSIS AND TREATMENT 2020-08-27 05:43:43 Doctor Unassigned, [place] [facility] CT ABDOMEN PELVIS W CONTRAST 2020-07-10 05:12:21 Chapito Contreras [facility] TROPONIN I 2020-07-10 03:49:00 Chapito Contreras [facility] ADC / LCC - DRUG SCREEN TRIAGE 2020-07-10 03:13:00 Chapito Contreras [facility] XR CHEST 1 VW 2020-07-10 01:05:14 Chapito Contreras [facility] LIPASE 2020-07-10 00:55:00 Chapito Contreras [facility] TROPONIN I 2020-07-10 00:55:00 Chapito Contreras [facility] COMP. METABOLIC PANEL ([id number]) 2020-07-10 00:55:00 Chapito Contreras [facility] CBC WITH DIFF 2020-07-10 00:55:[address] [facility] PROTHROMBIN TIME / INR 2020-07-10 00:55:00 Yesica Contreras [facility] D-DIMER 2020-07-10 00:55:00 Chapito Contreras [facility] COVID-19 (ID NOW RAPID TESTING) 2020-07-10 00:55:00 Chapito Contreras [facility] EKG-12 LEAD 2020-07-10 00:52:35 Chapito Contreras [facility] Encounters Start Date/Time End Date/Time Encounter Type Admission Type Attending [facility] Care Facility Care Department Encounter ID Source 2023-11-05 23:52:00 2023-11-06 02:37:00 Emergency X Nidia SOLANO [facility] ERT [id number] [facility] 2023-11-05 23:52:00 2023-11-06 02:37:00 Emergency Nidia Solano [facility] [id number] [facility] 2023-10-31 23:33:00 2023-11-01 04:19:00 Emergency X JOSE FRANCISCO WALTERS [facility] ERT [id number] [facility] 2023-10-31 23:33:00 2023-11-01 04:19:00 Emergency Jose Francisco Walters [facility] [id number] [facility] 2023-10-22 23:39:00 2023-10-23 02:31:00 Emergency X CHAPITO CONTRERAS [facility] ERT [id number] [facility] 2023-10-22 23:39:00 2023-10-23 02:31:00 Emergency Chapito Contreras [facility] [id number] [facility] 2023-09-25 23:04:00 2023-09-26 02:30:00 Emergency X LOREN TAM HEE-KWANG [facility] ERT [id number] [facility] 2023-09-25 23:04:00 2023-09-26 02:30:00 Emergency Loren Tam [facility] [id number] [facility] 2023-08-25 00:00:00 2023-08-25 00:00:00 Patient Secure Msg Doctor Unassigned, [place] [facility] [id number] [facility] 2023-08-23 22:43:00 2023-08-24 02:41:00 Emergency Patrick Vergara [facility] [id number] [facility] 2023-08-23 22:43:00 2023-08-24 02:41:00 Emergency X PATRICK VERGARA [facility] [facility] [id number] [facility] 2023-07-07 03:51:00 2023-07-07 05:56:00 Emergency X CHAPITO CONTRERAS [facility] ERT [id number] [facility] 2023-07-07 03:51:00 2023-07-07 05:56:00 Emergency Chapito Contreras [facility] 1.2.840.114 350.1.13.10 4.2.7.2.686 [id number] 084 [id number] [facility] 2023-05-25 17:20:00 2023-05-25 22:37:00 Emergency X Nidia SOLANO [facility] ERT [id number] [facility] 2023-05-25 17:20:00 2023-05-25 22:37:00 Emergency Nidia Solano [facility] 1.2.840.114 350.1.13.10 4.2.7.2.686 [id number] [id number] [facility] 2023-02-20 18:06:00 2023-02-20 21:03:00 Emergency X ESCOBARSOFIA TIMOTHY [facility] ERT [id number] [facility] 2023-02-20 18:06:00 2023-02-20 21:03:00 Emergency Shawn Sofia [facility] 1.2.840.114 350.1.13.10 4.2.7.2.686 [id number] 084 [id number] [facility] 2023-02-20 00:00:00 2023-02-20 00:00:00 Orders Only Doctor Unassigned, [place] [facility] 1.2.840.114 350.1.13.10 4.2.7.2.686 [id number] [id number] [facility] 2022-12-29 00:24:00 2022-12-29 05:29:00 Emergency X CHAPITO CONTRERAS [facility] ERT [id number] [facility] 2022-12-29 00:24:00 2022-12-29 05:29:00 Emergency Chapito Contreras [facility] 1.2.840.114 350.1.13.10 4.2.7.2.686 [id number] 084 [id number] [facility] 2022-11-21 02:14:00 2022-11-21 03:04:00 Emergency X PATRICK VERGARA [facility] ERT [id number] [facility] 2022-11-21 02:14:00 2022-11-21 03:04:00 Emergency Patrick Vergara [facility] 1.2.840.114 350.1.13.10 4.2.7.2.686 [id number] [facility] 2022-10-29 01:37:00 2022-10-29 02:25:00 Emergency X CARMENCECILERA [facility] ERT [id number] [facility] 2022-10-29 01:37:00 2022-10-29 02:25:00 Emergency Marie Morales [facility] 1.2.840.114 350.1.13.10 4.2.7.2.686 [id number] [id number] [facility] 2022-06-01 23:34:00 2022-06-02 00:39:00 Emergency Dariela CLARKE SAQIB [facility] ERT [id number] [facility] 2022-06-01 23:34:00 2022-06-02 00:39:00 Emergency Saqib Clarke [facility] 1.2.840.114 350.1.13.10 4.2.7.2.686 [id number] [id number] [facility] 2022-05-28 11:00:00 2022-05-28 13:39:00 Emergency Dariela CLARKE SAQIB [facility] ERT [id number] [facility] 2022-05-28 11:00:00 2022-05-28 13:39:00 Emergency Saqib Clarke [facility] 1.2.840.114 350.1.13.10 4.2.7.2.686 [id number] [id number] [facility] 2022-05-05 22:33:00 2022-05-06 01:49:00 Emergency X Nidia SOLANO [facility] ERT [id number] [facility] 2022-05-05 22:33:00 2022-05-06 01:49:00 Emergency Nidia Solano [facility] 1.2.840.114 350.1.13.10 4.2.7.2.686 [id number] [id number] [facility] 2022-05-01 07:33:00 2022-05-01 09:07:00 Emergency X SAQIB CLARKE [facility] ERT [id number] [facility] 2022-05-01 07:33:00 2022-05-01 09:07:00 Emergency Saqib Clarke [facility] 1.2.840.114 350.1.13.10 4.2.7.2.686 [id number] 084 [id number] [facility] 2022-02-08 01:00:00 2022-02-08 03:03:00 Emergency X RUKHSANA ASHFORDNELL [facility] ERT [id number] [facility] 2022-02-08 01:00:00 2022-02-08 03:03:00 Emergency Benjamin Ashford [facility] 1.2.840.114 350.1.13.10 4.2.7.2.686 [id number] [id number] [facility] 2021-10-14 16:40:00 2021-10-14 19:30:00 Emergency X MARIE MORALES [facility] ERT [id number] [facility] 2021-10-14 16:40:00 2021-10-14 19:30:00 Emergency Marie Morales [facility] 1.2.840.114 350.1.13.10 4.2.7.2.686 [id number] [id number] [facility] 2021-05-15 12:11:58 2021-05-15 23:59:00 Hospital Encounter Geoff Cardona [facility] 1.2.840.114 350.1.13.10 4.2.7.2.686 [id number] [facility] 2021-05-15 12:30:00 2021-05-15 12:30:00 Outpatient Shreyas GEOFF CARDONA [facility] [id number] [facility] 2021-05-08 12:30:00 2021-05-08 23:59:00 Hospital Encounter Kiki Mathur [facility] 1.2.840.114 350.1.13.10 4.2.7.2.686 [id number] [facility] 2021-05-08 12:30:00 2021-05-08 12:30:00 Outpatient KIKI GODINEZ [facility] [id number] [facility] 2021-05-06 03:01:00 2021-05-06 04:28:00 Emergency Saqib Clarke [facility] 1.2.840.114 350.1.13.10 4.2.7.2.686 [id number] [id number] [facility] 2021-05-06 03:01:00 2021-05-06 04:28:00 Emergency X SAQIB CLARKE [facility] ERT [id number] [facility] 2021-03-14 21:49:00 2021-03-15 01:22:00 [facility] 1.2.840.114 350.1.13.10 4.2.7.2.686 [id number] [id number] [facility] 2021-03-14 21:49:00 2021-03-15 01:22:00 Emergency Florinajonatangilmar Matildadania [facility] 1.2.840.114 350.1.13.10 4.2.7.2.686 [id number] 2021-03-14 21:49:00 2021-03-14 21:49:00 Emergency X CHAPITO CONTRERAS [facility] ERT [id number] [facility] 2020-09-08 16:52:00 2020-09-08 18:13:00 Emergency Saqib Clarke [facility] 1.2.840.114 350.1.13.10 4.2.7.2.686 [id number] [facility] 2020-09-08 16:52:00 2020-09-08 18:13:00 Emergency Saqib Clarke [facility] 1.2.840.114 350.1.13.10 4.2.7.2.686 [id number] [id number] 2020-09-08 16:52:00 2020-09-08 16:52:00 Emergency X SAQIB CLARKE [facility] ERT [id number] [facility] 2020-09-06 09:52:00 2020-09-06 13:38:00 Emergency Nidia Solano [facility] 1.2.840.114 350.1.13.10 4.2.7.2.686 [id number] 084 [id number] [facility] 2020-09-06 09:52:00 2020-09-06 13:38:00 Emergency Nidia Solano [facility] 1.2.840.114 350.1.13.10 4.2.7.2.686 [id number] 2020-09-06 09:52:00 2020-09-06 09:52:00 Emergency X [facility] ERT [id number] [facility] 2020-09-06 00:00:00 2020-09-06 00:00:00 Orders Only Doctor Unassigned, [place] [facility] 1.2.840.114 350.1.13.10 4.2.7.2.686 [id number] [facility] 2020-09-06 00:00:00 2020-09-06 00:00:00 Orders Only Doctor Unassigned, [place] [facility] 1.2.840.114 350.1.13.10 4.2.7.2.686 [id number] 009 [id number] 2020-08-26 23:45:00 2020-08-30 08:05:00 [facility].114 350.1.13.10 4.2.7.2.686 [id number] [id number] [facility] 2020-08-26 23:45:00 2020-08-30 08:05:00 [facility] 1.2.840.114 350.1.13.10 4.2.7.2.686 [id number] [id number] 2020-08-26 23:43:00 2020-08-26 23:43:00 Emergency X [facility] ERT [id number] [facility] 2020-07-09 19:41:00 2020-07-10 00:40:00 Emergency FlorinakyChapito schafer [facility] 1.2.840.114 350.1.13.10 4.2.7.2.686 [id number] [id number] [facility] 2020-07-09 19:41:00 2020-07-10 00:40:00 [facility] 1.2.840.114 350.1.13.10 4.2.7.2.686 [id number] 084 [id number] 2020-07-09 19:41:00 2020-07-09 19:41:00 Emergency X CHAPITO CONTRERAS [facility] ERT [id number] [facility] Results Test Description Test Time Test Comments Results Result Co mments Source [facility] (11591)2023-11-06 07:16:15* Test Item Value Reference Range Interpretation Comme nts NA (test code = 0389433152) 138 mmol/L 135-145 K (test code = 2826116701) 3.5 mmol/L 3.5-5.0 CL (test code = 4360476455) 106 mmol/L 98-108 CO2 TOTAL (test code = 2670445041) 23 mmol/L 23-31 AGAP (test code = 8227123728) 9 2-16 BUN (test code = 6585391337) 18 mg/dL 7-23 GLUCOSE (test code = 7396580198) 110 mg/dL 70-110 CREATININE (test code = 2209836921) 0.73 mg/dL 0.60-1.25 TOTAL BILI (test code = 9910625930) 0.4 mg/dL 0.1-1.1 CALCIUM (test code = 6174772040) 9.4 mg/dL 8.6-10.6 T PROTEIN (test code = 5449577821) 8.5 g/dL 6.3-8.2 H ALBUMIN (test code = 2393864685) 4.8 g/dL 3.5-5.0 ALK PHOS (test code = 3361517121) 78 U/L 34-122 ALTv (test code = 1742-6) 42 U/L 5-50 AST(SGOT) (test code = 1613005755) 43 U/L 13-40 H eGFR (test code = 51013-7) 113.6 mL/min/1.73m2 CKD-EPI eGFR (2020). Assuming creatinine has been stable day-to-day for at least three months, the eGFR indicates Category G1 (>= 90 mL/min/1.73 m2) Lab Interpretation (test code = 82007-0) Abnormal [facility]2024-01-18 07:16:15* Test Item Value Reference Range Interpretation Comme nts LIPASE (test code = 7394993554) 118 U/L 0-220 Lab Interpretation (test cod e = 33286-4) Normal [facility] with Cqhw5322-51-76 06:49:12* Test Item Value Reference Range Interpretation Comme nts WBC (test code = 6690-2) 11.36 See_Comment H [Automated messa ge] The system which generated this result transmitted reference range: 4.20 - 10.70 10*3/?L. The reference range was not used to interpret this result as normal/abnormal. RBC (test code = 789-8) 5.20 See_Comment [Automated messa ge] The system which generated this result transmitted reference range: 4.26 - 5.52 10*6/?L. The reference range was not used to interpret this result as normal/abnormal. HGB (test code = 718-7) 15.9 g/dL 12.2-16.4 HCT (test code = 4544-3) 47.4 % 38.4-49.3 MCV (test code = 787-2) 91.2 fL 81.7-95.6 MCH (test code = 785-6) 30.6 pg 26.1-32.7 MCHC (test code = 786-4) 33.5 g/dL 31.2-35.0 RDW-SD (test code = 02469-3) 46.4 fL 38.5-51.6 RDW-CV (test code = 788-0) 13.7 % 12.1-15.4 PLT (test code = 777-3) 323 See_Comment [Automated Cynnya ge] The system which generated this result transmitted reference range: 150 - 328 10*3/?L. The reference range was not used to interpret this result as normal/abnormal. MPV (test code = 56612-8) 9.8 fL 9.8-13.0 NRBC/100 WBC (test code = 7799205395) 0.0 See_Comment [Automated [employer] ssage] The system which generated this result transmitted reference range: 0.0 - 10.0 /100 WBCs. The reference range was not used to interpret this result as normal/abnormal. NRBC x10^3 (test code = 4997042926) See_Comment [Automated Cynnya ge] The system which generated this result transmitted reference range: 10*3/?L. The reference range was not used to interpret this result as normal/abnormal. GRAN MAT (NEUT) % (test code = 770-8) 56.1 % IMM GRAN % (test code = 4758361211) 0.50 % LYMPH % (test code = 736-9) 34.8 % MONO % (test code = 5905-5) 6.3 % EOS % (test code = 713-8) 1.4 % BASO % (test code = 706-2) 0.9 % GRAN MAT x10^3(ANC) (test code = 0092293682) 6.38 10*3/uL 1.99-6.95 IMM GRAN x10^3 (test code = 2540765381) 0.06 10*3/uL 0.00-0.06 LYMPH x10^3 (test code = 731-0) 3.95 10*3/uL 1.09-3.23 H MONO x10^3 (test code = 742-7) 0.71 10*3/uL 0.36-1.02 EOS x10^3 (test code = 711-2) 0.16 10*3/uL 0.06-0.53 BASO x10^3 (test code = 704-7) 0.10 10*3/uL 0.01-0.09 H Lab Interpretation (test code = 02712-8) Abnormal [facility] ABDOMEN PELVIS W [id number] 09:00:37Ordering physician: JOSE FRANCISCO WALTERS Indication: Acute generalized abdominal pain COMPARISON: CT of the abdomen and pelvis dated 10/23/2023 TECHNIQUE: Axial images of the abdomen and pelvis are performed f ollowingadministration of intravenous contrast material. Images were reformatted inthe coronal and sagittal plane. CT scan was performed according to ALARA(as low as reasonably achievable) policy. FINDINGS: The lung bases are clear. There is a small hiatal hernia. Thepatient is status post cholecystectomy. The liver, gallbladder, spleen,adrenal glands and pancreas are within normal limits. The kidneys arenormal in appearance bilaterally without hydronephrosis. No abdominalaortic aneurysm or dissection is appreciated. There is no free fluid in the pelvis. There is no bowel obstruction,widespread diverticulosis or acute diverticulitis. The appendix isidentified and within normal limits. ?Bonewindows through the abdomen andpelvis demonstrate no osseous destructive lesion. [facility] Metabolic [id number] 06:29:13* Test Item Value Reference Range Interpretation Comme nts NA (test code = 3423210665) 138 mmol/L 135-145 K (test code = 3171137386) 3.8 mmol/L 3.5-5.0 CL (test code = 0222088915) 106 mmol/L 98-108 CO2 TOTAL (test code = 2261090949) 21 mmol/L 23-31 L AGAP (test code = 1299936217) 11 2-16 BUN (test code = 7154088723) 13 mg/dL 7-23 GLUCOSE (test code = 1730027526) 113 mg/dL 70-110 H CREATININE (test code = 5897090482) 0.63 mg/dL 0.60-1.25 TOTAL BILI (test code = 0057170509) 0.7 mg/dL 0.1-1.1 CALCIUM (test code = 5564343721) 9.6 mg/dL 8.6-10.6 T PROTEIN (test code = 3804124557) 9.0 g/dL 6.3-8.2 H ALBUMIN (test code = 7602997680) 5.0 g/dL 3.5-5.0 ALK PHOS (test code = 5781055753) 73 U/L 34-122 ALTv (test code = 1742-6) 33 U/L 5-50 AST(SGOT) (test code = 1774793418) 33 U/L 13-40 eGFR (test code = 44036-7) 118.8 mL/min/1.73m2 CKD-EPI eGFR (2020). Assuming creatinine has been stable day-to-day for at least three months, the eGFR indicates Category G1 (>= 90 mL/min/1.73 m2) Lab Interpretation (test code = 85159-1) Abnormal [facility], Wvgqp3847-10-01 06:29:13* Test Item Value Reference Range Interpretation Comme nts LIPASE (test code = 4938227563) 89 U/L 0-220 Lab Interpretation (test cod e = 43914-9) Normal [facility] with Dwinejdxuwqq1843-31-42 06:17:56* Test Item Value Reference Range Interpretation Comme nts WBC (test code = 6690-2) 11.54 See_Comment H [Automated messa ge] The system which generated this result transmitted reference range: 4.20 - 10.70 10*3/?L. The reference range was not used to interpret this result as normal/abnormal. RBC (test code = 789-8) 5.24 See_Comment [Automated messa ge] The system which generated this result transmitted reference range: 4.26 - 5.52 10*6/?L. The reference range was not used to interpret this result as normal/abnormal. HGB (test code = 718-7) 16.2 g/dL 12.2-16.4 HCT (test code = 4544-3) 47.8 % 38.4-49.3 MCV (test code = 787-2) 91.2 fL 81.7-95.6 MCH (test code = 785-6) 30.9 pg 26.1-32.7 MCHC (test code = 786-4) 33.9 g/dL 31.2-35.0 RDW-SD (test code = 64318-4) 46.6 fL 38.5-51.6 RDW-CV (test code = 788-0) 14.0 % 12.1-15.4 PLT (test code = 777-3) 312 See_Comment [Automated messa ge] The system which generated this result transmitted reference range: 150 - 328 10*3/?L. The reference range was not used to interpret this result as normal/abnormal. MPV (test code = 73936-0) 9.7 fL 9.8-13.0 L NRBC/100 WBC (test code = 4123684183) 0.0 See_Comment [Automated [employer] ssage] The system which generated this result transmitted reference range: 0.0 - 10.0 /100 WBCs. The reference range was not used to interpret this result as normal/abnormal. NRBC x10^3 (test code = 7684367585) See_Comment [Automated Cynnya ge] The system which generated this result transmitted reference range: 10*3/?L. The reference range was not used to interpret this result as normal/abnormal. GRAN MAT (NEUT) % (test code = 770-8) 54.9 % IMM GRAN % (test code = 3888941965) 0.30 % LYMPH % (test code = 736-9) 36.0 % MONO % (test code = 5905-5) 6.3 % EOS % (test code = 713-8) 1.6 % BASO % (test code = 706-2) 0.9 % GRAN MAT x10^3(ANC) (test code = 6145724973) 6.35 10*3/uL 1.99-6.95 IMM GRAN x10^3 (test code = 1035384766) 0.03 10*3/uL 0.00-0.06 LYMPH x10^3 (test code = 731-0) 4.15 10*3/uL 1.09-3.23 H MONO x10^3 (test code = 742-7) 0.73 10*3/uL 0.36-1.02 EOS x10^3 (test code = 711-2) 0.18 10*3/uL 0.06-0.53 BASO x10^3 (test code = 704-7) 0.10 10*3/uL 0.01-0.09 H Lab Interpretation (test code = 32647-7) Abnormal [facility] GLUCOSE (AUTOMATED)2023-11-01 05:42:28* Test Item Value Reference Range Interpretation Comme nts POCT GLU (test code = 7720156586) 110 mg/dL 70-110 Lab Interpretation (test cod e = 10856-4) Normal [facility] ABDOMEN PELVIS W [id number] 07:44:05Ordering physician: CHAPITO CONTRERAS Indication: Acute right lower quadrant abdominal pain COMPARISON: CT of the abdomen and pelvis dated 09/26/2023 TECHNIQUE: Axial images of the abdomen and pelvis are performed followingadministration of intravenous contrast material. Images were reformatted inthe coronal and sagittal plane. CT scan was performed according to ALARA(as low as reasonably achievable) policy. FINDINGS: The lung bases are clear. The patient is status postcholecystectomy. The liver, spleen, adrenal glands and pancreas are withinnormal limits. The kidneys are normal in appearance bilaterally withouthydronephrosis. No abdominal aortic aneurysm or dissection is appreciated. There isno free fluid in the pelvis. There is no bowel obstruction,widespread diverticulosis or acute diverticulitis. The appendix isidentified and within normal limits. ?Bone windows through the abdomen andpelvis demonstrate no osseous destructive lesion. 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 The reference range was not used to interpret this result as normal/abnormal. RBC (test code = 789-8) 5.23 See_Comment [Automated messa ge] The system which generated this result transmitted reference range: 4.26 - 5.52 10*6/?L. The reference range was not used to interpret this result as normal/abnormal. HGB (test code = 718-7) 16.1 g/dL 12.2-16.4 HCT (test code = 4544-3) 47.5 % 38.4-49.3 MCV (test code = 787-2) 90.8 fL 81.7-95.6 MCH (test code = 785-6) 30.8 pg 26.1-32.7 MCHC (test code = 786-4) 33.9 g/dL 31.2-35.0 RDW-SD (test code = 58502-8) 45.0 fL 38.5-51.6 RDW-CV (test code = 788-0) 13.6 % 12.1-15.4 PLT (test code = 777-3) 307 See_Comment [Automated Cynnya ge] The system which generated this result transmitted reference range: 150 - 328 10*3/?L. The reference range was not used to interpret this result as normal/abnormal. MPV (test code = 06149-3) 9.3 fL 9.8-13.0 L NRBC/100 WBC (test code = 2282614139) 0.0 See_Comment [Automated [employer] ssage] The system which generated this result transmitted reference range: 0.0 - 10.0 /100 WBCs. The reference range was not used to interpret this result as normal/abnormal. NRBC x10^3 (test code = 5269154039) See_Comment [Automated [employer] ge] The system which generated this result transmitted reference range: 10*3/?L. The reference range was not used to interpret this result as normal/abnormal. SEG % (test code = 83129-8) 49 % 33-76 LYMPH % (test code = 19414-7) 40 % 14-54 MONO % (test code = 45876-7) 4 % 0-4 EOS % (test code = 05838-9) 7 % 0-3 H ANC (test code = 753-4) 5.81 10*3/uL 1.99-6.95 Lab Interpretation (test code = 12078-3) Abnormal [facility] Metabolic Kvotd8344-38-24 06:32:13* Test Item Value Reference Range Interpretation Comme nts NA (test code = 0686251239) 140 mmol/L 135-145 K (test code = 7959267326) 3.7 mmol/L 3.5-5.0 CL (test code = 9111684899) 105 mmol/L 98-108 CO2 TOTAL (test code = 9053054947) 23 mmol/L 23-31 AGAP (test code = 6828155780) 12 2-16 BUN (test code = 3999659311) 15 mg/dL 7-23 GLUCOSE (test code = 8417337624) 126 mg/dL 70-110 H CREATININE (test code = 1818927339) 0.89 mg/dL 0.60-1.25 TOTAL BILI (test code = 6302491579) 0.6 mg/dL 0.1-1.1 CALCIUM (test code = 9887216604) 9.5 mg/dL 8.6-10.6 T PROTEIN (test code = 5389054621) 8.6 g/dL 6.3-8.2 H ALBUMIN (test code = 1234206526) 4.7 g/dL 3.5-5.0 ALK PHOS (test code = 8151611274) 84 U/L 34-122 ALTv (test code = 1742-6) 38 U/L 5-50 AST(SGOT) (test code = 8869203946) 33 U/L 13-40 eGFR (test code = 81384-8) 107.0 mL/min/1.73m2 CKD-EPI eGFR (2020). Assuming creatinine has been stable day-to-day for at least three months, the eGFR indicates Category G1 (>= 90 mL/min/1.73 m2) Lab Interpretation (test code = 04645-2) Abnormal [facility], Dzsxe4926-18-40 06:31:52* Test Item Value Reference Range Interpretation Comme nts LIPASE (test code = 4012378633) 80 U/L 0-220 Lab Interpretation (test cod e = 16479-4) Normal [facility] MET[facility]OLIC PANEL (NA, K, CL, CO2, GLUCOSE, BUN, CREATININE, CA)2023-09-26 06:00:26* Test Item Value Reference Range Interpretation Comme nts NA (test code = 6288387132) 139 mmol/L 135-145 K (test code = 8982282820) 3.9 mmol/L 3.5-5.0 CL (test code = 0803858429) 104 mmol/L 98-108 CO2 TOTAL (test code = 7686823298) 25 mmol/L 23-31 AGAP (test code = 3008667115) 10 2-16 BUN (test code = 1459223808) 14 mg/dL 7-23 GLUCOSE (test code = 5293184597) 109 mg/dL 70-110 CREATININE (test code = 5602078643) 0.77 mg/dL 0.60-1.25 CALCIUM (test code = 3042387801) 10.4 mg/dL 8.6-10.6 eGFR (test code = 16240-1) 112.5 mL/min/1.73m2 CKD-EPI eGFR (20 21). Assuming creatinine has been stable day-to-day for at least three months, the eGFR indicates Category G1 (>= 90 mL/min/1.73 m2) [facility] FUN[facility] PAN[facility] (03434) (ALB,T.PRO,BILI T,BU/BC,ALT,AST,ALK PHOS)2023-09-26 06:00:26* Test Item Value Reference Range Interpretation Comme [facility] TOTAL BILI (test code = 4659680851) 0.6 mg/dL 0.1-1.1 BILI UNCON (test code = 5242616786) 0.4 mg/dL 0.1-1.1 BILI CONJ (test code = 8939391727) 0.0 mg/dL 0.0-0.3 T PROTEIN (test code = 7300185469) 8.6 g/dL 6.3-8.2 H ALBUMIN (test code = 4350427234) 4.7 g/dL 3.5-5.0 ALK PHOS (test code = 1897336758) 91 U/L 34-122 ALTv (test code = 1742-6) 40 U/L 5-50 AST(SGOT) (test code = 2046964799) 27 U/L 13-40 Lab Interpretation (test cod e = 68903-6) [facility] Test Item Value Reference Range Interpretation Comme nts LIPASE (test code = 3751283804) 73 U/L 0-220 Lab Interpretation (test cod e = 92079-3) [facility] UPWT5952-03-58 05:50:26* Test Item Value Reference Range Interpretation Comme nts WBC (test code = 6690-2) 10.08 See_Comment [Automated Cynnya ge] The system which generated this result transmitted reference range: 4.20 - 10.70 10*3/?L. The reference range was not used to interpret this result as normal/abnormal. RBC (test code = 789-8) 5.24 See_Comment [Automated messa ge] The system which generated this result transmitted reference range: 4.26 - 5.52 10*6/?L. The reference range was not used to interpret this result as normal/abnormal. HGB (test code = 718-7) 16.2 g/dL 12.2-16.4 HCT (test code = 4544-3) 47.9 % 38.4-49.3 MCV (test code = 787-2) 91.4 fL 81.7-95.6 MCH (test code = 785-6) 30.9 pg 26.1-32.7 MCHC (test code = 786-4) 33.8 g/dL 31.2-35.0 RDW-SD (test code = 54593-1) 44.0 fL 38.5-51.6 RDW-CV (test code = 788-0) 13.1 % 12.1-15.4 PLT (test code = 777-3) 317 See_Comment [Automated Cynnya ge] The system which generated this result transmitted reference range: 150 - 328 10*3/?L. The reference range was not used to interpret this result as normal/abnormal. MPV (test code = 67192-7) 9.6 fL 9.8-13.0 L NRBC/100 WBC (test code = 2857380873) 0.0 See_Comment [Automated me ssage] The system which generated this result transmitted reference range: 0.0 - 10.0 /100 WBCs. The reference range was not used to interpret this result as normal/abnormal. NRBC x10^3 (test code = 6635127915) See_Comment [Automated messa ge] The system which generated this result transmitted reference range: 10*3/?L. The reference range was not used to interpret this result as normal/abnormal. GRAN MAT (NEUT) % (test code = 770-8) 50.9 % IMM GRAN % (test code = 8437399987) 0.30 % LYMPH % (test code = 736-9) 38.3 % MONO % (test code = 5905-5) 7.5 % EOS % (test code = 713-8) 2.2 % BASO % (test code = 706-2) 0.8 % GRAN MAT x10^3(ANC) (test code = 4145199277) 5.13 10*3/uL 1.99-6.95 IMM GRAN x10^3 (test code = 3517616817) 0.03 10*3/uL 0.00-0.06 LYMPH x10^3 (test code = 731-0) 3.86 10*3/uL 1.09-3.23 H MONO x10^3 (test code = 742-7) 0.76 10*3/uL 0.36-1.02 EOS x10^3 (test code = 711-2) 0.22 10*3/uL 0.06-0.53 BASO x10^3 (test code = 704-7) 0.08 10*3/uL 0.01-0.09 Lab Interpretation (test code = 70033-6) Abnormal [facility] [id number] 05:30:49* Test Item Value Reference Range Interpretation Comme nts TROPONIN I (test code = 0166060851) 0.001 ng/mL <=0.034 LAURIE (test code = LAURIE) Reference (Normal) Range (defined by the 99th percentile reference limit): <= 0.034 ng/mL Note: Cardiac troponin begins to rise 3-4 hours after the onset of ischemia. Repeat in 4-6 hours if the sample was drawn within 3-4 hours of the onset of the symptom and found normal. Diagnosis of myocardial injury is made with acute changes in cTn concentrations with at least one serial sample above the 99th percentile upper reference limit (URL), taken together with the patient's clinical presentation. Biotin has been reported to cause a negative bias, interpret results relative to patient's use of biotin. Lab Interpretation (test code = 01625-4) [facility] ([id number][facility]2023-08-24 05:19:05* Test Item Value Reference Range Interpretation Comme nts NA (test code = 9354650717) 138 mmol/L 135-145 K (test code = 9079690371) 4.3 mmol/L 3.5-5.0 CL (test code = 6145621413) 100 mmol/L 98-108 CO2 TOTAL (test code = 4706813099) 25 mmol/L 23-31 AGAP (test code = 5419902927) 13 2-16 BUN (test code = 1506907064) 15 mg/dL 7-23 GLUCOSE (test code = 8559654187) 198 mg/dL 70-110 H CREATININE (test code = 3943042674) 0.86 mg/dL 0.60-1.25 TOTAL BILI (test code = 6455527645) 0.3 mg/dL 0.1-1.1 CALCIUM (test code = 1401177572) 10.3 mg/dL 8.6-10.6 T PROTEIN (test code = 9823186358) 8.6 g/dL 6.3-8.2 H ALBUMIN (test code = 8007894339) 4.5 g/dL 3.5-5.0 ALK PHOS (test code = 5287995635) 94 U/L 34-122 ALTv (test code = 1742-6) 44 U/L 5-50 AST(SGOT) (test code = 5229698521) 28 U/L 13-40 eGFR (test code = 24968-4) 108.8 mL/min/1.73m2 CKD-EPI eGFR (2020). Assuming creatinine has been stable day-to-day for at least three months, the eGFR indicates Category G1 (>= 90 mL/min/1.73 m2) Lab Interpretation (test code = 65529-5) Abnormal [facility] WITH [id number] 05:01:26* Test Item Value Reference Range Interpretation Comme nts WBC (test code = 6690-2) 10.38 See_Comment [Automated messa ge] The system which generated this result transmitted reference range: 4.20 - 10.70 10*3/?L. The reference range was not used to interpret this result as normal/abnormal. RBC (test code = 789-8) 5.08 See_Comment [Automated messa ge] The system which generated this result transmitted reference range: 4.26 - 5.52 10*6/?L. The reference range was not used to interpret this result as normal/abnormal. HGB (test code = 718-7) 15.7 g/dL 12.2-16.4 HCT (test code = 4544-3) 46.8 % 38.4-49.3 MCV (test code = 787-2) 92.1 fL 81.7-95.6 MCH (test code = 785-6) 30.9 pg 26.1-32.7 MCHC (test code = 786-4) 33.5 g/dL 31.2-35.0 RDW-SD (test code = 45977-1) 43.8 fL 38.5-51.6 RDW-CV (test code = 788-0) 13.0 % 12.1-15.4 PLT (test code = 777-3) 298 See_Comment [Automated messa ge] The system which generated this result transmitted reference range: 150 - 328 10*3/?L. The reference range was not used to interpret this result as normal/abnormal. MPV (test code = 56853-2) 10.0 fL 9.8-13.0 NRBC/100 WBC (test code = 9259584360) 0.0 See_Comment [Automated me ssage] The system which generated this result transmitted reference range: 0.0 - 10.0 /100 WBCs. The reference range was not used to interpret this result as normal/abnormal. NRBC x10^3 (test code = 2519201584) See_Comment [Automated messa ge] The system which generated this result transmitted reference range: 10*3/?L. The reference range was not used to interpret this result as normal/abnormal. GRAN MAT (NEUT) % (test code = 770-8) 52.4 % IMM GRAN % (test code = 8505760411) 0.30 % LYMPH % (test code = 736-9) 36.6 % MONO % (test code = 5905-5) 7.2 % EOS % (test code = 713-8) 2.6 % BASO % (test code = 706-2) 0.9 % GRAN MAT x10^3(ANC) (test code = 3569717367) 5.44 10*3/uL 1.99-6.95 IMM GRAN x10^3 (test code = 2307537401) 0.03 10*3/uL 0.00-0.06 LYMPH x10^3 (test code = 731-0) 3.80 10*3/uL 1.09-3.23 H MONO x10^3 (test code = 742-7) 0.75 10*3/uL 0.36-1.02 EOS x10^3 (test code = 711-2) 0.27 10*3/uL 0.06-0.53 BASO x10^3 (test code = 704-7) 0.09 10*3/uL 0.01-0.09 Lab Interpretation (test code = 80125-2) Abnormal [facility] GLUCOSE (AUTOMATED)2023-05-26 02:18:34* Test Item Value Reference Range Interpretation Comme nts POCT GLU (test code = 8615906452) 173 mg/dL 70-110 H Lab Interpretation (test cod e = 85211-5) Abnormal [facility] GLUCOSE(AGE >30DAYS)2023-05-26 02:17:00* Test Item Value Reference Range Interpretation Comme nts POCT Glu (age>30days) (test code = 3342) 173 mg/dL 70-110 A Lab Interpretation (test cod e = 87917-1) [facility] [id number] 01:41:57* Test Item Value Reference Range Interpretation Comme nts TROPONIN I (test code = 1151314701) 0.008 ng/mL <=0.034 LAURIE (test code = LAURIE) Reference (Normal) Range (defined by the 99th percentile reference limit): <= 0.034 ng/mL Note: Cardiac troponin begins to rise 3-4 hours after the onset of ischemia. Repeat in 4-6 hours if the sample was drawn within 3-4 hours of the onset of the symptom and found normal. Diagnosis of myocardial injury is made with acute changes in cTn concentrations with at least one serial sample above the 99th percentile upper reference limit (URL), taken together with the patient's clinical presentation. Biotin has been reported to cause a negative bias, interpret results relative to patient's use of biotin. Lab Interpretation (test code = 67384-7) [facility]2023-05-26 01:23:43* Test Item Value Reference Range Interpretation Comme nts POCT GLU (test code = 6439083720) 185 mg/dL 70-110 H Lab Interpretation (test cod e = 17715-4) [facility]normal [facility] [id number] 00:40:36* Test Item Value Reference Range Interpretation Comme nts NT-proBNP (test code = 96946-0) <=125 Lab Interpretation (test cod e = 26100-9) [facility] [id number] 00:06:55* Test Item Value Reference Range Interpretation Comme nts TROPONIN I (test code = 0725217709) 0.003 ng/mL <=0.034 LAURIE (test code = LAURIE) Reference (Normal) Range (defined by the 99th percentile reference limit): <= 0.034 ng/mL Note: Cardiac troponin begins to rise 3-4 hours after the onset of ischemia. Repeat in 4-6 hours if the sample was drawn within 3-4 hours of the onset of the symptom and found normal. Diagnosis of myocardial injury is made with acute changes in cTn concentrations with at least one serial sample above the 99th percentile upper reference limit (URL), taken together with the patient's clinical presentation. Biotin has been reported to cause a negative bias, interpret results relative to patient's use of biotin. Lab Interpretation (test code = 45161-0) [facility]2023-08-06 23:56:12* Test Item Value Reference Range Interpretation Comme nts MAGNESIUM (test code = 5882154141) 2.0 mg/dL 1.7-2.4 Lab Interpretation (test cod e = 32556-4) Normal [facility]. METABOLIC PANEL (43194)2023-05-25 23:55:52* Test Item Value Reference Range Interpretation Comme nts NA (test code = 3747818791) 138 mmol/L 135-145 K (test code = 2452296927) 4.3 mmol/L 3.5-5.0 CL (test code = 3891448296) 103 mmol/L 98-108 CO2 TOTAL (test code = 5947702811) 22 mmol/L 23-31 L AGAP (test code = 9845484121) 13 2-16 BUN (test code = 3335960133) 22 mg/dL 7-23 GLUCOSE (test code = 6628549066) 274 mg/dL 70-110 H CREATININE (test code = 5606799365) 0.79 mg/dL 0.60-1.25 TOTAL BILI (test code = 4166714894) 0.6 mg/dL 0.1-1.1 CALCIUM (test code = 3029759048) 9.2 mg/dL 8.6-10.6 T PROTEIN (test code = 5967877224) 8.4 g/dL 6.3-8.2 H ALBUMIN (test code = 8122018158) 4.5 g/dL 3.5-5.0 ALK PHOS (test code = 4333202245) 88 U/L 34-122 ALTv (test code = 1742-6) 48 U/L 5-50 AST(SGOT) (test code = 9729185367) 37 U/L 13-40 eGFR (test code = 9687363367) 106.1 mL/min/1.73m2 LAURIE (test code = LAURIE) Association of Glomerular Filtration Rate (GFR) and Staging of Kidney Disease* + --+ --+ ------+| GFR (mL/min/1.73 m2) ?| With Kidney Damage ?| ?Without Kidney Damage+ --------+ --------+ +| ?>90 ?| ?Stage one ?| ? Normal ?+ ---+ ---+ -------+| ?60-89 ?| ?Stage two ?| ? Decreased GFR ? + --+ --+ ------+| ?30-59 ?| ?Stage three ?| ? Stage three ? + --+ --+ ------+| ?15-29 ?| ?Stage four ? | ? Stage four ?+ ---+ ---+ -------+| ?<15 (or dialysis) ? ?| ?Stage five ? | ? Stage five ?+ ---+ ---+ -------+ *Each stage assumes the associated GFR level has been in effect for at least three months. ?Stages 1 to 5, with or without kidney disease, indicate chronic kidney disease. Notes: Determination of stages one and two (with eGFR >59mL/min/1.73 m2) requires estimation of kidney damage for at least three months as defined by structural or functional abnormalities of the kidney, manifested by either:Pathological abnormalities or Markers of kidney damage (including abnormalities in the composition of the blood or urine or abnormalities in imaging tests). Lab Interpretation (test code = 45436-2) [facility]20[facility] 23:55:32* Test Item Value Reference Range Interpretation Comme nts LIPASE (test code = 1881043124) 154 U/L 0-220 Lab Interpretation (test cod e = 51856-3) Normal [facility] WITH [id number] 23:33:34* Test Item Value Reference Range Interpretation Comme nts WBC (test code = 6690-2) 9.32 See_Comment [Automated [employer]] The system which generated this result transmitted reference range: 4.20 - 10.70 10*3/?L. The reference range was not used to interpret this result as normal/abnormal. RBC (test code = 789-8) 4.89 See_Comment [Automated [employer]] The system which generated this result transmitted reference range: 4.26 - 5.52 10*6/?L. The reference range was not used to interpret this result as normal/abnormal. HGB (test code = 718-7) 15.1 g/dL 12.2-16.4 HCT (test code = 4544-3) 44.8 % 38.4-49.3 MCV (test code = 787-2) 91.6 fL 81.7-95.6 MCH (test code = 785-6) 30.9 pg 26.1-32.7 MCHC (test code = 786-4) 33.7 g/dL 31.2-35.0 RDW-SD (test code = 16224-0) 45.4 fL 38.5-51.6 RDW-CV (test code = 788-0) 13.4 % 12.1-15.4 PLT (test code = 777-3) 286 See_Comment [Automated messa ge] The system which generated this result transmitted reference range: 150 - 328 10*3/?L. The reference range was not used to interpret this result as normal/abnormal. MPV (test code = 55617-5) 10.2 fL 9.8-13.0 NRBC/100 WBC (test code = 1792237333) 0.0 See_Comment [Automated me ssage] The system which generated this result transmitted reference range: 0.0 - 10.0 /100 WBCs. The reference range was not used to interpret this result as normal/abnormal. NRBC x10^3 (test code = 9029027672) See_Comment [Automated me ssage] The system which generated this result transmitted reference range: 10*3/?L. The reference range was not used to interpret this result as normal/abnormal. GRAN MAT (NEUT) % (test code = 770-8) 57.3 % IMM GRAN % (test code = 3376052809) 0.40 % LYMPH % (test code = 736-9) 32.6 % MONO % (test code = 5905-5) 6.8 % EOS % (test code = 713-8) 1.9 % BASO % (test code = 706-2) 1.0 % GRAN MAT x10^3(ANC) (test code = 8935207982) 5.34 10*3/uL 1.99-6.95 IMM GRAN x10^3 (test code = 7778504178) 0.04 10*3/uL 0.00-0.06 LYMPH x10^3 (test code = 731-0) 3.04 10*3/uL 1.09-3.23 MONO x10^3 (test code = 742-7) 0.63 10*3/uL 0.36-1.02 EOS x10^3 (test code = 711-2) 0.18 10*3/uL 0.06-0.53 BASO x10^3 (test code = 704-7) 0.09 10*3/uL 0.01-0.09 [facility] with Bbajyjvpxckc1963-26-19 07:42:13* Test Item Value Reference Range Interpretation Comme nts WBC (test code = 6690-2) 10.82 See_Comment H [Automated messa ge] The system which generated this result transmitted reference range: 4.20 - 10.70 10*3/?L. The reference range was not used to interpret this result as normal/abnormal. RBC (test code = 789-8) 4.96 See_Comment [Automated messa ge] The system which generated this result transmitted reference range: 4.26 - 5.52 10*6/?L. The reference range was not used to interpret this result as normal/abnormal. HGB (test code = 718-7) 14.8 g/dL 12.2-16.4 HCT (test code = 4544-3) 44.4 % 38.4-49.3 MCV (test code = 787-2) 89.5 fL 81.7-95.6 MCH (test code = 785-6) 29.8 pg 26.1-32.7 MCHC (test code = 786-4) 33.3 g/dL 31.2-35.0 RDW-SD (test code = 79368-0) 44.4 fL 38.5-51.6 RDW-CV (test code = 788-0) 13.6 % 12.1-15.4 PLT (test code = 777-3) 187 See_Comment [Automated messa ge] The system which generated this result transmitted reference range: 150 - 328 10*3/?L. The reference range was not used to interpret this result as normal/abnormal. MPV (test code = 11762-3) 10.4 fL 9.8-13.0 NRBC/100 WBC (test code = 5073159197) 0.0 See_Comment [Automated [employer] ssage] The system which generated this result transmitted reference range: 0.0 - 10.0 /100 WBCs. The reference range was not used to interpret this result as normal/abnormal. NRBC x10^3 (test code = 2988600771) See_Comment [Automated messa ge] The system which generated this result transmitted reference range: 10*3/?L. The reference range was not used to interpret this result as normal/abnormal. GRAN MAT (NEUT) % (test code = 770-8) 55.0 % IMM GRAN % (test code = 7747209611) 0.50 % LYMPH % (test code = 736-9) 34.8 % MONO % (test code = 5905-5) 6.5 % EOS % (test code = 713-8) 2.5 % BASO % (test code = 706-2) 0.7 % GRAN MAT x10^3(ANC) (test code = 5565458610) 5.95 10*3/uL 1.99-6.95 IMM GRAN x10^3 (test code = 6111230781) 0.05 10*3/uL 0.00-0.06 LYMPH x10^3 (test code = 731-0) 3.77 10*3/uL 1.09-3.23 H MONO x10^3 (test code = 742-7) 0.70 10*3/uL 0.36-1.02 EOS x10^3 (test code = 711-2) 0.27 10*3/uL 0.06-0.53 BASO x10^3 (test code = 704-7) 0.08 10*3/uL 0.01-0.09 Lab Interpretation (test code = 53364-2) [facility] Metabolic [id number] 07:32:47* Test Item Value Reference Range Interpretation Comme nts NA (test code = 5496853112) 136 mmol/L 135-145 K (test code = 5630839903) 4.2 mmol/L 3.5-5.0 CL (test code = 6715411325) 104 mmol/L 98-108 CO2 TOTAL (test code = 5140652495) 21 mmol/L 23-31 L AGAP (test code = 1013919762) 11 2-16 BUN (test code = 7692475746) 17 mg/dL 7-23 GLUCOSE (test code = 7108746195) 125 mg/dL 70-110 H CREATININE (test code = 0827108944) 0.63 mg/dL 0.60-1.25 TOTAL BILI (test code = 5403557147) 0.3 mg/dL 0.1-1.1 CALCIUM (test code = 8794322414) 9.3 mg/dL 8.6-10.6 T PROTEIN (test code = 0170477577) 7.8 g/dL 6.3-8.2 ALBUMIN (test code = 2779781790) 4.5 g/dL 3.5-5.0 ALK PHOS (test code = 4855577180) 97 U/L 34-122 ALTv (test code = 1742-6) 42 U/L 5-50 AST(SGOT) (test code = 8748982875) 34 U/L 13-40 eGFR (test code = 0022100744) 137.7 mL/min/1.73m2 LAURIE (test code = LAURIE) Association of Glomerular Filtration Rate (GFR) and Staging of Kidney Disease* + --+ --+ ------+| GFR (mL/min/1.73 m2) ?| With Kidney Damage ?| ?Without Kidney Damage+ --------+ --------+ +| ?>90 ?| ?Stage one ?| ? Normal ?+ ---+ ---+ -------+| ?60-89 ?| ?Stage two ?| ? Decreased GFR ? + --+ --+ ------+| ?30-59 ?| ?Stage three ?| ? Stage three ? + --+ --+ ------+| ?15-29 ?| ?Stage four ? | ? Stage four ?+ ---+ ---+ -------+| ?<15 (or dialysis) ? ?| ?Stage five ? | ? Stage five ?+ ---+ ---+ -------+ *Each stage assumes the associated GFR level has been in effect for at least three months. ?Stages 1 to 5, with or without kidney disease, indicate chronic kidney disease. Notes: Determination of stages one and two (with eGFR >59mL/min/1.73 m2) requires estimation of kidney damage for at least three months as defined by structural or functional abnormalities of the kidney, manifested by either:Pathological abnormalities or Markers of kidney damage (including abnormalities in the composition of the blood or urine or abnormalities in imaging tests). Lab Interpretation (test code = 09157-1) [facility], Pyrwl2625-93-78 07:31:52* Test Item Value Reference Range Interpretation Comme nts LIPASE (test code = 2008282058) 73 U/L 0-220 Lab Interpretation (test cod e = 50962-6) [facility] Area[facility]YRO[facility] STIMULATING [id number] 18:17:21 * Test Item Value Reference Range Interpretation Comme nts TSH (test code = 4567571901) See_Comment H [Automated messa ge] The system which generated this result transmitted reference range: 0.45 - 4.70 mIU/L. The reference range was not used to interpret this result as normal/abnormal. Lab Interpretation (test code = 45728-4) Abnormal [facility] [id number] 16:53:41* Test Item Value Reference Range Interpretation Comme nts FREE T4 (test code = 3082899485) See_Comment L [Automated messa ge] The system which generated this result transmitted reference range: 0.78 - 2.20 ng/dL:. The reference range was not used to interpret this result as normal/abnormal. Lab Interpretation (test code = 09860-2) Abnormal [facility] [id number] 16:53:04* Test Item Value Reference Range Interpretation Comme nts FREE T3 (test code = 8737768600) 1.50 pg/mL 2.77-5.27 L Lab Interpretation (test cod e = 01620-8) [facility] MET[facility]OLIC PANEL (69349)2022-05-28 16:37:03* Test Item Value Reference Range Interpretation Comme nts NA (test code = 5496222164) 138 mmol/L 135-145 K (test code = 1557753131) 4.4 mmol/L 3.5-5 CL (test code = 8463583241) 101 mmol/L 98-108 CO2 TOTAL (test code = 5712093984) 27 mmol/L 23-31 AGAP (test code = 9785873910) 2-16 BUN (test code = 4803176372) 14 mg/dL 7-23 GLUCOSE (test code = 9477302308) 102 mg/dL 70-110 CREATININE (test code = 9301614584) 0.82 mg/dL 0.6-1.25 TOTAL BILI (test code = 2198201994) 0.5 mg/dL 0.1-1.1 CALCIUM (test code = 0916277782) 9.3 mg/dL 8.6-10.6 T PROTEIN (test code = 8730292965) 8.3 g/dL 6.3-8.2 H ALBUMIN (test code = 1218194757) 4.8 g/dL 3.5-5 ALK PHOS (test code = 2395958752) 75 U/L 34-122 ALTv (test code = 1742-6) 56 U/L 5-50 H AST(SGOT) (test code = 9862036099) 42 U/L 13-40 H eGFR (test code = 2633523012) mL/min/1.73m2 LAURIE (test code = LAURIE) Association of Glomerular Filtration Rate (GFR) and Staging of Kidney Disease* + --+ --+ ------+| GFR (mL/min/1.73 m2) ?| With Kidney Damage ?| ?Without Kidney Damage+ --------+ --------+ +| ?>90 ?| ?Stage one ?| ? Normal ?+ ---+ ---+ -------+| ?60-89 ?| ?Stage two ?| ? Decreased GFR ? + --+ --+ ------+| ?30-59 ?| ?Stage three ?| ? Stage three ? + --+ --+ ------+| ?15-29 ?| ?Stage four ? | ? Stage four ?+ ---+ ---+ -------+| ?<15 (or dialysis) ? ?| ?Stage five ? | ? Stage five ?+ ---+ ---+ -------+ *Each stage assumes the associated GFR level has been in effect for at least three months. ?Stages 1 to 5, with or without kidney disease, indicate chronic kidney disease. Notes: Determination of stages one and two (with eGFR >59mL/min/1.73 m2) requires estimation of kidney damage for at least three months as defined by structural or functional abnormalities of the kidney, manifested by either:Pathological abnormalities or Markers of kidney damage (including abnormalities in the composition of the blood or urine or abnormalities in imaging tests). Lab Interpretation (test code = 28383-3) Abnormal [facility] WITH [id number] 16:25:38* Test Item Value Reference Range Interpretation Comme nts WBC (test code = 6690-2) See_Comment [Automated messa ge] The system which generated this result transmitted reference range: 4.20 - 10.70 10*3/?L. The reference range was not used to interpret this result as normal/abnormal. RBC (test code = 789-8) See_Comment [Automated messa ge] The system which generated this result transmitted reference range: 4.26 - 5.52 10*6/?L. The reference range was not used to interpret this result as normal/abnormal. HGB (test code = 718-7) 14.7 g/dL 12.2-16.4 HCT (test code = 4544-3) 44.5 % 38.4-49.3 MCV (test code = 787-2) 91.9 fL 81.7-95.6 MCH (test code = 785-6) 30.4 pg 26.1-32.7 MCHC (test code = 786-4) 33.0 g/dL 31.2-35 RDW-SD (test code = 54819-8) 48.1 fL 38.5-51.6 RDW-CV (test code = 788-0) 14.2 % 12.1-15.4 PLT (test code = 777-3) See_Comment [Automated messa ge] The system which generated this result transmitted reference range: 150 - 328 10*3/?L. The reference range was not used to interpret this result as normal/abnormal. MPV (test code = 29100-7) 9.5 fL 9.8-13 L NRBC/100 WBC (test code = 3104686858) See_Comment [Automated [employer] ssage] The system which generated this result transmitted reference range: 0.0 - 10.0 /100 WBCs. The reference range was not used to interpret this result as normal/abnormal. NRBC x10^3 (test code = 9125430899) See_Comment [Automated messa ge] The system which generated this result transmitted reference range: 10*3/?L. The reference range was not used to interpret this result as normal/abnormal. GRAN MAT (NEUT) % (test code = 770-8) 56.3 % IMM GRAN % (test code = 4232884040) 0.70 % LYMPH % (test code = 736-9) 32.8 % MONO % (test code = 5905-5) 6.2 % EOS % (test code = 713-8) 2.7 % BASO % (test code = 706-2) 1.3 % GRAN MAT x10^3(ANC) (test code = 1903569748) 4.87 10*3/uL 1.99-6.95 IMM GRAN x10^3 (test code = 5181573046) 0.06 10*3/uL 0-0.06 LYMPH x10^3 (test code = 731-0) 2.84 10*3/uL 1.09-3.23 MONO x10^3 (test code = 742-7) 0.54 10*3/uL 0.36-1.02 EOS x10^3 (test code = 711-2) 0.23 10*3/uL 0.06-0.53 BASO x10^3 (test code = 704-7) 0.11 10*3/uL 0.01-0.09 H Lab Interpretation (test code = 90808-1) [facility] 06:03:53* Test Item Value Reference Range Interpretation Comme nts MAGNESIUM (test code = 3939692389) 1.8 mg/dL 1.7-2.4 Lab Interpretation (test cod e = 04191-9) [facility] [id number] 06:00:52* Test Item Value Reference Range Interpretation Comments TROPONIN I (test code = 7624605500) 0.002 ng/mL See_Comment [Automated message] The system which generated this result transmitted reference range: <=0.034. The reference range was not used to interpret this result as normal/abnormal. LAURIE (test code = LAURIE) Reference (Normal) Range (defined by the 99th percentile reference limit): <= 0.034 ng/mL Note: Cardiac troponin begins to rise 3-4 hours after the onset of ischemia. Repeat in 4-6 hours if the sample was drawn within 3-4 hours of the onset of the symptom and found normal. Diagnosis of myocardial injury is made with acute changes in cTn concentrations with at least one serial sample above the 99th percentile upper reference limit (URL), taken together with the patient's clinical presentation. Biotin has been reported to cause a negative bias, interpret results relative to patient's use of biotin. Lab Interpretation (test code = 43799-5) Normal [facility]. METABOLIC PANEL (18932)2022-05-06 05:49:11* Test Item Value Reference Range Interpretation Comme nts NA (test code = 2006999726) 136 mmol/L 135-145 K (test code = 0516045041) 4.4 mmol/L 3.5-5 CL (test code = 9471595673) 100 mmol/L 98-108 CO2 TOTAL (test code = 5208073303) 23 mmol/L 23-31 AGAP (test code = 0533126046) 2-16 BUN (test code = 6604556775) 16 mg/dL 7-23 GLUCOSE (test code = 6180850294) 116 mg/dL 70-110 H CREATININE (test code = 1150722140) 0.81 mg/dL 0.6-1.25 TOTAL BILI (test code = 6979504185) 0.6 mg/dL 0.1-1.1 CALCIUM (test code = 1296749868) 10.3 mg/dL 8.6-10.6 T PROTEIN (test code = 4140369044) 9.2 g/dL 6.3-8.2 H ALBUMIN (test code = 8996909350) 5.3 g/dL 3.5-5 H ALK PHOS (test code = 5311128695) 89 U/L 34-122 ALTv (test code = 1742-6) 44 U/L 5-50 AST(SGOT) (test code = 1080972906) 36 U/L 13-40 eGFR (test code = 5331209130) mL/min/1.73m2 LAURIE (test code = LAURIE) Association of Glomerular Filtration Rate (GFR) and Staging of Kidney Disease* + --+ --+ ------+| GFR (mL/min/1.73 m2) ?| With Kidney Damage ?| ?Without Kidney Damage+ --------+ --------+ +| ?>90 ?| ?Stage one ?| ? Normal ?+ ---+ ---+ -------+| ?60-89 ?| ?Stage two ?| ? Decreased GFR ? + --+ --+ ------+| ?30-59 ?| ?Stage three ?| ? Stage three ? + --+ --+ ------+| ?15-29 ?| ?Stage four ? | ? Stage four ?+ ---+ ---+ -------+| ?<15 (or dialysis) ? ?| ?Stage five ? | ? Stage five ?+ ---+ ---+ -------+ *Each stage assumes the associated GFR level has been in effect for at least three months. ?Stages 1 to 5, with or without kidney disease, indicate chronic kidney disease. Notes: Determination of stages one and two (with eGFR >59mL/min/1.73 m2) requires estimation of kidney damage for at least three months as defined by structural or functional abnormalities of the kidney, manifested by either:Pathological abnormalities or Markers of kidney damage (including abnormalities in the composition of the blood or urine or abnormalities in imaging tests). Lab Interpretation (test code = 87137-4) [facility] 05[facility]48[facility]51* Test Item Value Reference Range Interpretation Comme nts LIPASE (test code = 6984251230) 67 U/L 0-220 Lab Interpretation (test cod e = 06856-1) [facility] [id number] 05:36:33* Test Item Value Reference Range Interpretation Comme nts WBC (test code = 6690-2) See_Comment H [Automated [employer]] The system which generated this result transmitted reference range: 4.20 - 10.70 10*3/?L. The reference range was not used to interpret this result as normal/abnormal. RBC (test code = 789-8) See_Comment [Automated [employer]] The system which generated this result transmitted reference range: 4.26 - 5.52 10*6/?L. The reference range was not used to interpret this result as normal/abnormal. HGB (test code = 718-7) 15.5 g/dL 12.2-16.4 HCT (test code = 4544-3) 45.5 % 38.4-49.3 MCV (test code = 787-2) 89.6 fL 81.7-95.6 MCH (test code = 785-6) 30.5 pg 26.1-32.7 MCHC (test code = 786-4) 34.1 g/dL 31.2-35 RDW-SD (test code = 89292-5) 45.9 fL 38.5-51.6 RDW-CV (test code = 788-0) 13.9 % 12.1-15.4 PLT (test code = 777-3) See_Comment [Automated messa ge] The system which generated this result transmitted reference range: 150 - 328 10*3/?L. The reference range was not used to interpret this result as normal/abnormal. MPV (test code = 61634-6) 9.5 fL 9.8-13 L NRBC/100 WBC (test code = 2031237456) See_Comment [Automated [employer] ssage] The system which generated this result transmitted reference range: 0.0 - 10.0 /100 WBCs. The reference range was not used to interpret this result as normal/abnormal. NRBC x10^3 (test code = 5131273343) See_Comment [Automated [employer] ge] The system which generated this result transmitted reference range: 10*3/?L. The reference range was not used to interpret this result as normal/abnormal. GRAN MAT (NEUT) % (test code = 770-8) 60.3 % IMM GRAN % (test code = 3913077131) 0.80 % LYMPH % (test code = 736-9) 27.6 % MONO % (test code = 5905-5) 6.8 % EOS % (test code = 713-8) 3.5 % BASO % (test code = 706-2) 1.0 % GRAN MAT x10^3(ANC) (test code = 3425077004) 6.95 10*3/uL 1.99-6.95 IMM GRAN x10^3 (test code = 0666548420) 0.09 10*3/uL 0-0.06 H LYMPH x10^3 (test code = 731-0) 3.19 10*3/uL 1.09-3.23 MONO x10^3 (test code = 742-7) 0.79 10*3/uL 0.36-1.02 EOS x10^3 (test code = 711-2) 0.40 10*3/uL 0.06-0.53 BASO x10^3 (test code = 704-7) 0.12 10*3/uL 0.01-0.09 H Lab Interpretation (test code = 99767-4) [facility] (56075)2022-05-01 13:28:01* Test Item Value Reference Range Interpretation Comme nts NA (test code = 4589225914) 139 mmol/L 135-145 K (test code = 0837385811) 4.7 mmol/L 3.5-5 CL (test code = 8456837436) 104 mmol/L 98-108 CO2 TOTAL (test code = 5798010495) 23 mmol/L 23-31 AGAP (test code = 7152700929) 2-16 BUN (test code = 0217392229) 14 mg/dL 7-23 GLUCOSE (test code = 0716648986) 128 mg/dL 70-110 H CREATININE (test code = 2854281540) 0.62 mg/dL 0.6-1.25 TOTAL BILI (test code = 2279912567) 0.4 mg/dL 0.1-1.1 CALCIUM (test code = 3798705547) 9.2 mg/dL 8.6-10.6 T PROTEIN (test code = 0658566862) 8.1 g/dL 6.3-8.2 ALBUMIN (test code = 1520884611) 4.6 g/dL 3.5-5 ALK PHOS (test code = 3898391746) 92 U/L 34-122 ALTv (test code = 1742-6) 43 U/L 5-50 AST(SGOT) (test code = 5186544784) 30 U/L 13-40 eGFR (test code = 3937994080) mL/min/1.73m2 LAURIE (test code = LAURIE) Association of Glomerular Filtration Rate (GFR) and Staging of Kidney Disease* + --+ --+ ------+| GFR (mL/min/1.73 m2) ?| With Kidney Damage ?| ?Without Kidney Damage+ --------+ --------+ +| ?>90 ?| ?Stage one ?| ? Normal ?+ ---+ ---+ -------+| ?60-89 ?| ?Stage two ?| ? Decreased GFR ? + --+ --+ ------+| ?30-59 ?| ?Stage three ?| ? Stage three ? + --+ --+ ------+| ?15-29 ?| ?Stage four ? | ? Stage four ?+ ---+ ---+ -------+| ?<15 (or dialysis) ? ?| ?Stage five ? | ? Stage five ?+ ---+ ---+ -------+ *Each stage assumes the associated GFR level has been in effect for at least three months. ?Stages 1 to 5, with or without kidney disease, indicate chronic kidney disease. Notes: Determination of stages one and two (with eGFR >59mL/min/1.73 m2) requires estimation of kidney damage for at least three months as defined by structural or functional abnormalities of the kidney, manifested by either:Pathological abnormalities or Markers of kidney damage (including abnormalities in the composition of the blood or urine or abnormalities in imaging tests). Lab Interpretation (test code = 66531-9) Abnormal [facility] WITH [id number] 13:20:02* Test Item Value Reference Range Interpretation Comme nts WBC (test code = 6690-2) See_Comment [[employer]] The system which generated this result transmitted reference range: 4.20 - 10.70 10*3/?L. The reference range was not used to interpret this result as normal/abnormal. RBC (test code = 789-8) See_Comment [Automated [employer]] The system which generated this result transmitted reference range: 4.26 - 5.52 10*6/?L. The reference range was not used to interpret this result as normal/abnormal. HGB (test code = 718-7) 15.4 g/dL 12.2-16.4 HCT (test code = 4544-3) 46.9 % 38.4-49.3 MCV (test code = 787-2) 91.2 fL 81.7-95.6 MCH (test code = 785-6) 30.0 pg 26.1-32.7 MCHC (test code = 786-4) 32.8 g/dL 31.2-35 RDW-SD (test code = 51344-6) 47.5 fL 38.5-51.6 RDW-CV (test code = 788-0) 14.1 % 12.1-15.4 PLT (test code = 777-3) See_Comment [Automated [employer] ge] The system which generated this result transmitted reference range: 150 - 328 10*3/?L. The reference range was not used to interpret this result as normal/abnormal. MPV (test code = 81670-6) 9.3 fL 9.8-13 L NRBC/100 WBC (test code = 5186218802) See_Comment [Automated [employer] ssage] The system which generated this result transmitted reference range: 0.0 - 10.0 /100 WBCs. The reference range was not used to interpret this result as normal/abnormal. NRBC x10^3 (test code = 3298225480) See_Comment [Automated [employer] ge] The system which generated this result transmitted reference range: 10*3/?L. The reference range was not used to interpret this result as normal/abnormal. GRAN MAT (NEUT) % (test code = 770-8) 58.9 % IMM GRAN % (test code = 0481023902) 0.60 % LYMPH % (test code = 736-9) 29.2 % MONO % (test code = 5905-5) 6.8 % EOS % (test code = 713-8) 3.5 % BASO % (test code = 706-2) 1.0 % GRAN MAT x10^3(ANC) (test code = 5773450281) 5.80 10*3/uL 1.99-6.95 IMM GRAN x10^3 (test code = 2713602928) 0.06 10*3/uL 0-0.06 LYMPH x10^3 (test code = 731-0) 2.87 10*3/uL 1.09-3.23 MONO x10^3 (test code = 742-7) 0.67 10*3/uL 0.36-1.02 EOS x10^3 (test code = 711-2) 0.34 10*3/uL 0.06-0.53 BASO x10^3 (test code = 704-7) 0.10 10*3/uL 0.01-0.09 H Lab Interpretation (test code = 07144-8) [facility] [id number] 07:04:38* Test Item Value Reference Range Interpretation Comments TROPONIN I (test code = 3792734761) 0.002 ng/mL See_Comment [Automated message] The system which generated this result transmitted reference range: <=0.034. The reference range was not used to interpret this result as normal/abnormal. LAURIE (test code = LAURIE) Reference (Normal) Range (defined by the 99th percentile reference limit): <= 0.034 ng/mL Note: Cardiac troponin begins to rise 3-4 hours after the onset of ischemia. Repeat in 4-6 hours if the sample was drawn within 3-4 hours of the onset of the symptom and found normal. Diagnosis of myocardial injury is made with acute changes in cTn concentrations with at least one serial sample above the 99th percentile upper reference limit (URL), taken together with the patient's clinical presentation. Biotin has been reported to cause a negative bias, interpret results relative to patient's use of biotin. Lab Interpretation (test code = 23013-2) Normal [facility]-TERMINAL [id number] 07:00:14* Test Item Value Reference Range Interpretation Comme nts NT-proBNP (test code = 6838632880) 25 pg/mL See_Comment [Automated message] The system which generated this result transmitted reference range: <=125. The reference range was not used to interpret this result as normal/abnormal. LAURIE (test code = LAURIE) Biotin has been reported to cause a negative bias, interpret results relative to patient's use of biotin. 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 METABOLIC PANEL (55938)2022-02-08 06:50:57* Test Item Value Reference Range Interpretation Comme nts NA (test code = 3179444631) 138 mmol/L 135-145 K (test code = 6847910711) 4.3 mmol/L 3.5-5.0 CL (test code = 5503098975) 103 mmol/L 98-108 CO2 TOTAL (test code = 0371051017) 23 mmol/L 23-31 AGAP (test code = 6595839401) 2-16 BUN (test code = 1120798483) 14 mg/dL 7-23 GLUCOSE (test code = 8642483138) 142 mg/dL 70-110 H CREATININE (test code = 0298942240) 0.60 mg/dL 0.60-1.25 TOTAL BILI (test code = 0623979342) 0.5 mg/dL 0.1-1.1 CALCIUM (test code = 1538072113) 9.1 mg/dL 8.6-10.6 T PROTEIN (test code = 6968868843) 7.9 g/dL 6.3-8.2 ALBUMIN (test code = 5000931006) 4.5 g/dL 3.5-5.0 ALK PHOS (test code = 0692753529) 81 U/L 34-122 ALTv (test code = 1742-6) 28 U/L 5-50 AST(SGOT) (test code = 8071247217) 24 U/L 13-40 eGFR (test code = 0629449179) mL/min/1.73m2 LAURIE (test code = LAURIE) Association of Glomerular Filtration Rate (GFR) and Staging of Kidney Disease* + --+ --+ ------+| GFR (mL/min/1.73 m2) ?| With Kidney Damage ?| ?Without Kidney Damage+ --------+ --------+ +| ?>90 ?| ?Stage one ?| ? Normal ?+ ---+ ---+ -------+| ?60-89 ?| ?Stage two ?| ? Decreased GFR ? + --+ --+ ------+| ?30-59 ?| ?Stage three ?| ? Stage three ? + --+ --+ ------+| ?15-29 ?| ?Stage four ? | ? Stage four ?+ ---+ ---+ -------+| ?<15 (or dialysis) ? ?| ?Stage five ? | ? Stage five ?+ ---+ ---+ -------+ *Each stage assumes the associated GFR level has been in effect for at least three months. ?Stages 1 to 5, with or without kidney disease, indicate chronic kidney disease. Notes: Determination of stages one and two (with eGFR >59mL/min/1.73 m2) requires estimation of kidney damage for at least three months as defined by structural or functional abnormalities of the kidney, manifested by either:Pathological abnormalities or Markers of kidney damage (including abnormalities in the composition of the blood or urine or abnormalities in imaging tests). Lab Interpretation (test code = 21104-6) [facility]normal [facility] AreaACTIVATED PARTIAL THRMPLAS [id number] 06:47:31* Test Item Value Reference Range Interpretation Comme [facility] APTT Patient (test code = 3173-2) See_Comment [Automated message] The system which generated this result transmitted reference range: 23 - 38 Seconds. The reference range was not used to interpret this result as normal/abnormal. LAURIE (test code = LAURIE) The [facility] patient population mean normal value for aPTT is 30 seconds. Lab Interpretation (test code = 45434-4) Normal [facility] AreaPROTHROMBIN TIME / [id number] 06:45:33* Test Item Value Reference Range Interpretation Comme [facility] PROTIME PATIENT (test code = 5964-2) See_Comment [Automated messa ge] The system which generated this result transmitted reference range: 12.0 - 14.7 Seconds. The reference range was not used to interpret this result as normal/abnormal. INR (test code = 6301-6) Normal INR <1.1; Warfarin Therapeutic range 2.0 to 3.0 or 2.5 to 3.5, depending upon the indications. Lab Interpretation (test code = 80177-6) [facility] WITH [id number] 06:37:36* Test Item Value Reference Range Interpretation Comme nts WBC (test code = 6690-2) See_Comment [Automated messa ge] The system which generated this result transmitted reference range: 4.20 - 10.70 10*3/?L. The reference range was not used to interpret this result as normal/abnormal. RBC (test code = 789-8) See_Comment [Automated [employer]] The system which generated this result transmitted reference range: 4.26 - 5.52 10*6/?L. The reference range was not used to interpret this result as normal/abnormal. HGB (test code = 718-7) 15.0 g/dL 12.2-16.4 HCT (test code = 4544-3) 44.9 % 38.4-49.3 MCV (test code = 787-2) 89.3 fL 81.7-95.6 MCH (test code = 785-6) 29.8 pg 26.1-32.7 MCHC (test code = 786-4) 33.4 g/dL 31.2-35.0 RDW-SD (test code = 56503-9) 42.7 fL 38.5-51.6 RDW-CV (test code = 788-0) 13.1 % 12.1-15.4 PLT (test code = 777-3) See_Comment [Automated [employer] ge] The system which generated this result transmitted reference range: 150 - 328 10*3/?L. The reference range was not used to interpret this result as normal/abnormal. MPV (test code = 91568-4) 9.7 fL 9.8-13.0 L NRBC/100 WBC (test code = 5116500219) See_Comment [Automated [employer]] The system which generated this result transmitted reference range: 0.0 - 10.0 /100 WBCs. The reference range was not used to interpret this result as normal/abnormal. NRBC x10^3 (test code = 9810460221) <0.01 See_Comment [Automated [employer] ge] The system which generated this result transmitted reference range: 10*3/?L. The reference range was not used to interpret this result as normal/abnormal. GRAN MAT (NEUT) % (test code = 770-8) 54.9 % IMM GRAN % (test code = 6032073531) 0.70 % LYMPH % (test code = 736-9) 32.9 % MONO % (test code = 5905-5) 8.7 % EOS % (test code = 713-8) 2.0 % BASO % (test code = 706-2) 0.8 % GRAN MAT x10^3(ANC) (test code = 8603032036) 5.84 10*3/uL 1.99-6.95 IMM GRAN x10^3 (test code = 9717690679) 0.07 10*3/uL 0.00-0.06 H LYMPH x10^3 (test code = 731-0) 3.50 10*3/uL 1.09-3.23 H MONO x10^3 (test code = 742-7) 0.92 10*3/uL 0.36-1.02 EOS x10^3 (test code = 711-2) 0.21 10*3/uL 0.06-0.53 BASO x10^3 (test code = 704-7) 0.09 10*3/uL 0.01-0.09 Lab Interpretation (test code = 08825-0) Abnormal [facility] [id number] 01:09:15* Test Item Value Reference Range Interpretation Comments TROPONIN I (test code = 2104567358) 0.003 ng/mL See_Comment [Automated message] The system which generated this result transmitted reference range: <=0.034. The reference range was not used to interpret this result as normal/abnormal. LAURIE (test code = LAURIE) Reference (Normal) Range (defined by the 99th percentile reference limit): <= 0.034 ng/mL Note: Cardiac troponin begins to rise 3-4 hours after the onset of ischemia. Repeat in 4-6 hours if the sample was drawn within 3-4 hours of the onset of the symptom and found normal. Diagnosis of myocardial injury is made with acute changes in cTn concentrations with at least one serial sample above the 99th percentile upper reference limit (URL), taken together with the patient's clinical presentation. Biotin has been reported to cause a negative bias, interpret results relative to patient's use of biotin. Lab Interpretation (test code = 63960-7) [facility] Area[facility] METABOLIC PANEL (12532)2021-10-15 00:56:56* Test Item Value Reference Range Interpretation Comme nts NA (test code = 5629374569) 135 mmol/L 135-145 K (test code = 6212636721) 4.6 mmol/L 3.5-5.0 CL (test code = 4755260891) 101 mmol/L 98-108 CO2 TOTAL (test code = 9832753747) 25 mmol/L 23-31 AGAP (test code = 0498010992) 2-16 BUN (test code = 8840813334) 20 mg/dL 7-23 GLUCOSE (test code = 3000809400) 130 mg/dL 70-110 H CREATININE (test code = 5103718155) 0.92 mg/dL 0.60-1.25 TOTAL BILI (test code = 6469418323) 0.4 mg/dL 0.1-1.1 CALCIUM (test code = 3410701438) 10.0 mg/dL 8.6-10.6 T PROTEIN (test code = 3571473358) 8.5 g/dL 6.3-8.2 H ALBUMIN (test code = 7241475724) 4.8 g/dL 3.5-5.0 ALK PHOS (test code = 8434251218) 89 U/L 34-122 ALTv (test code = 1742-6) 59 U/L 5-50 H AST(SGOT) (test code = 6521075575) 38 U/L 13-40 eGFR (test code = 1204691297) mL/min/1.73m2 LAURIE (test code = LAURIE) Association of Glomerular Filtration Rate (GFR) and Staging of Kidney Disease* + --+ --+ ------+| GFR (mL/min/1.73 m2) ?| With Kidney Damage ?| ?Without Kidney Damage+ --------+ --------+ +| ?>90 ?| ?Stage one ?| ? Normal ?+ ---+ ---+ -------+| ?60-89 ?| ?Stage two ?| ? Decreased GFR ? + --+ --+ ------+| ?30-59 ?| ?Stage three ?| ? Stage three ? + --+ --+ ------+| ?15-29 ?| ?Stage four ? | ? Stage four ?+ ---+ ---+ -------+| ?<15 (or dialysis) ? ?| ?Stage five ? | ? Stage five ?+ ---+ ---+ -------+ *Each stage assumes the associated GFR level has been in effect for at least three months. ?Stages 1 to 5, with or without kidney disease, indicate chronic kidney disease. Notes: Determination of stages one and two (with eGFR >59mL/min/1.73 m2) requires estimation of kidney damage for at least three months as defined by structural or functional abnormalities of the kidney, manifested by either:Pathological abnormalities or Markers of kidney damage (including abnormalities in the composition of the blood or urine or abnormalities in imaging tests). Lab Interpretation (test code = 57903-9) [facility] 00:56:36* Test Item Value Reference Range Interpretation Comme nts LIPASE (test code = 1354356345) 77 U/L 0-220 Lab Interpretation (test cod e = 44347-8) Normal [facility] WITH [id number] 00:37:36* Test Item Value Reference Range Interpretation Comme nts WBC (test code = 6690-2) See_Comment [Automated [employer]] The system which generated this result transmitted reference range: 4.20 - 10.70 10*3/?L. The reference range was not used to interpret this result as normal/abnormal. RBC (test code = 789-8) See_Comment [[employer]] The system which generated this result transmitted reference range: 4.26 - 5.52 10*6/?L. The reference range was not used to interpret this result as normal/abnormal. HGB (test code = 718-7) 15.4 g/dL 12.2-16.4 HCT (test code = 4544-3) 45.9 % 38.4-49.3 MCV (test code = 787-2) 90.4 fL 81.7-95.6 MCH (test code = 785-6) 30.3 pg 26.1-32.7 MCHC (test code = 786-4) 33.6 g/dL 31.2-35.0 RDW-SD (test code = 75674-9) 44.2 fL 38.5-51.6 RDW-CV (test code = 788-0) 13.3 % 12.1-15.4 PLT (test code = 777-3) See_Comment [Automated messa ge] The system which generated this result transmitted reference range: 150 - 328 10*3/?L. The reference range was not used to interpret this result as normal/abnormal. MPV (test code = 42510-8) 9.5 fL 9.8-13.0 L NRBC/100 WBC (test code = 5339494265) See_Comment [Automated [employer] ssage] The system which generated this result transmitted reference range: 0.0 - 10.0 /100 WBCs. The reference range was not used to interpret this result as normal/abnormal. NRBC x10^3 (test code = 8036690213) <0.01 See_Comment [Automated messa ge] The system which generated this result transmitted reference range: 10*3/?L. The reference range was not used to interpret this result as normal/abnormal. GRAN MAT (NEUT) % (test code = 770-8) 55.3 % IMM GRAN % (test code = 5575922575) 0.60 % LYMPH % (test code = 736-9) 32.5 % MONO % (test code = 5905-5) 7.8 % EOS % (test code = 713-8) 2.7 % BASO % (test code = 706-2) 1.1 % GRAN MAT x10^3(ANC) (test code = 7754473318) 5.74 10*3/uL 1.99-6.95 IMM GRAN x10^3 (test code = 2774136802) 0.06 10*3/uL 0.00-0.06 LYMPH x10^3 (test code = 731-0) 3.37 10*3/uL 1.09-3.23 H MONO x10^3 (test code = 742-7) 0.81 10*3/uL 0.36-1.02 EOS x10^3 (test code = 711-2) 0.28 10*3/uL 0.06-0.53 BASO x10^3 (test code = 704-7) 0.11 10*3/uL 0.01-0.09 H Lab Interpretation (test code = 84773-4) [facility] NOW RAPID TESTING)2021-03-15 04:10:11* Test Item Value Reference Range Interpretation Comme nts SARS-CoV-2 Rapid ID NOW (test code = 50585-1) Not Detected Not Detected LAURIE (test code = LAURIE) ID NOW COVID-19 As say is an isothermal nucleic acid amplification test intended for the qualitative detection of nucleic acid from SARS-CoV-2 viral RNA in nasopharyngeal (WATER PLUMBER) specimens. It is used under Emergency Use Authorization (EUA) by FDA. The limit of detection (LOD) of the assay is 125 Genome Equivalents/mL. A positive result is indicative of the presence of SARS-CoV-2 RNA. ?Clinical correlation with patient history and other diagnostic [...] for repeat patient testing if clinically indicated. Lab Interpretation (test code = 33852-8) [facility] MET[facility]OLIC PANEL (05975)2021-03-15 03:35:30* Test Item Value Reference Range Interpretation Comme nts NA (test code = 7727505805) 139 mmol/L 135-145 K (test code = 3812043476) 3.2 mmol/L 3.5-5.0 L CL (test code = 6564890033) 109 mmol/L 98-108 H CO2 TOTAL (test code = 7787247940) 23 mmol/L 23-31 AGAP (test code = 0443690994) 2-16 BUN (test code = 9166636872) 19 mg/dL 7-23 GLUCOSE (test code = 5218812782) 150 mg/dL 70-110 H CREATININE (test code = 4106300338) 0.81 mg/dL 0.60-1.25 TOTAL BILI (test code = 6804840580) 0.3 mg/dL 0.1-1.1 CALCIUM (test code = 4280605816) 8.2 mg/dL 8.6-10.6 L T PROTEIN (test code = 0932333474) 6.9 g/dL 6.3-8.2 ALBUMIN (test code = 6746795373) 4.0 g/dL 3.5-5.0 ALK PHOS (test code = 0873902187) 77 U/L 34-122 ALTv (test code = 1742-6) 22 U/L 5-50 AST(SGOT) (test code = 4633226331) 26 U/L 13-40 eGFR (test code = 1043936150) mL/min/1.73m2 LAURIE (test code = LAURIE) Association of Glomerular Filtration Rate (GFR) and Staging of Kidney Disease* + --+ --+ ------+| GFR (mL/min/1.73 m2) ?| With Kidney Damage ?| ?Without Kidney Damage+ --------+ --------+ +| ?>90 ?| ?Stage one ?| ? Normal ?+ ---+ ---+ -------+| ?60-89 ?| ?Stage two ?| ? Decreased GFR ? + --+ --+ ------+| ?30-59 ?| ?Stage three ?| ? Stage three ? + --+ --+ ------+| ?15-29 ?| ?Stage four ? | ? Stage four ?+ ---+ ---+ -------+| ?<15 (or dialysis) ? ?| ?Stage five ? | ? Stage five ?+ ---+ ---+ -------+ *Each stage assumes the associated GFR level has been in effect for at least three months. ?Stages 1 to 5, with or without kidney disease, indicate chronic kidney disease. Notes: Determination of stages one and two (with eGFR >59mL/min/1.73 m2) requires estimation of kidney damage for at least three months as defined by structural or functional abnormalities of the kidney, manifested by either:Pathological abnormalities or Markers of kidney damage (including abnormalities in the composition of the blood or urine or abnormalities in imaging tests). Lab Interpretation (test code = 72768-6) Abnormal [facility] [id number] 03:35:00* Test Item Value Reference Range Interpretation Comme nts APPEARANCE (test code = 6383379484) Clear Clear COLOR (test code = 4789132302) Yellow Yellow PH (test code = 0329851366) 4.8-8.0 SP GRAVITY (test code = 9789453310) 1.003-1.030 GLU U QUAL (test code = 2114101781) Normal Normal BLOOD (test code = 6182014167) Negative Negative KETONES (test code = 8631329109) 5 mg/dL Negative A PROTEIN (test code = 2887-8) Negative Negative UROBILIN (test code = 0457351460) Normal Normal BILIRUBIN (test code = 1512178569) Negative Negative NITRITE (test code = 8140494887) Negative Negative LEUK KNENY (test code = 2010041260) Negative Negative RBC/HPF (test code = 5276462667) <1 See_Comment [Automated messa ge] The system which generated this result transmitted reference range: 0 - 3 HPF. The reference range was not used to interpret this result as normal/abnormal. WBC/HPF (test code = 1181029055) <1 See_Comment [Automated messa ge] The system which generated this result transmitted reference range: 0 - 5 HPF. The reference range was not used to interpret this result as normal/abnormal. BACTERIA (test code = 9360455878) Negative Negative MUCOUS (test code = 4830817919) Slight Negative LPF A SQ EPITH (test code = 8746229266) <1 HPF Lab Interpretation (test code = 81246-7) Abnormal [facility] WITH [id number] 03:22:25* Test Item Value Reference Range Interpretation Comme nts WBC (test code = 6690-2) See_Comment [Automated messa ge] The system which generated this result transmitted reference range: 4.20 - 10.70 10*3/?L. The reference range was not used to interpret this result as normal/abnormal. RBC (test code = 789-8) See_Comment [Automated messa ge] The system which generated this result transmitted reference range: 4.26 - 5.52 10*6/?L. The reference range was not used to interpret this result as normal/abnormal. HGB (test code = 718-7) 14.7 g/dL 12.2-16.4 HCT (test code = 4544-3) 44.2 % 38.4-49.3 MCV (test code = 787-2) 90.9 fL 81.7-95.6 MCH (test code = 785-6) 30.2 pg 26.1-32.7 MCHC (test code = 786-4) 33.3 g/dL 31.2-35.0 RDW-SD (test code = 16947-7) 45.8 fL 38.5-51.6 RDW-CV (test code = 788-0) 13.7 % 12.1-15.4 PLT (test code = 777-3) See_Comment H [Automated messa ge] The system which generated this result transmitted reference range: 150 - 328 10*3/?L. The reference range was not used to interpret this result as normal/abnormal. MPV (test code = 21815-7) 9.4 fL 9.8-13.0 L NRBC/100 WBC (test code = 4543577594) See_Comment [Automated [employer] ssage] The system which generated this result transmitted reference range: 0.0 - 10.0 /100 WBCs. The reference range was not used to interpret this result as normal/abnormal. NRBC x10^3 (test code = 4230289543) <0.01 See_Comment [Automated [employer] ge] The system which generated this result transmitted reference range: 10*3/?L. The reference range was not used to interpret this result as normal/abnormal. GRAN MAT (NEUT) % (test code = 770-8) 58.4 % IMM GRAN % (test code = 7500434615) 0.50 % LYMPH % (test code = 736-9) 30.5 % MONO % (test code = 5905-5) 7.5 % EOS % (test code = 713-8) 2.2 % BASO % (test code = 706-2) 0.9 % GRAN MAT x10^3(ANC) (test code = 3943839867) 5.75 10*3/uL 1.99-6.95 IMM GRAN x10^3 (test code = 6207651037) 0.05 10*3/uL 0.00-0.06 LYMPH x10^3 (test code = 731-0) 3.00 10*3/uL 1.09-3.23 MONO x10^3 (test code = 742-7) 0.74 10*3/uL 0.36-1.02 EOS x10^3 (test code = 711-2) 0.22 10*3/uL 0.06-0.53 BASO x10^3 (test code = 704-7) 0.09 10*3/uL 0.01-0.09 Lab Interpretation (test code = 51294-8) [facility] (32014[facility]2020-09-08 23:50:00* Test Item Value Reference Range Interpretation Comme nts NA (test code = 9081260783) 139 mmol/L 135-145 K (test code = 2344451697) 4.1 mmol/L 3.5-5 CL (test code = 4323879473) 107 mmol/L 98-108 CO2 TOTAL (test code = 2164239333) 22 mmol/L 23-31 L AGAP (test code = 8607741581) 2-16 BUN (test code = 1797806366) 12 mg/dL 7-23 GLUCOSE (test code = 3724210787) 115 mg/dL 70-110 H CREATININE (test code = 2096525991) 0.54 mg/dL 0.6-1.25 L TOTAL BILI (test code = 5603069959) 0.3 mg/dL 0.1-1.1 CALCIUM (test code = 7121876119) 9.3 mg/dL 8.6-10.6 T PROTEIN (test code = 6633316181) 7.6 g/dL 6.3-8.2 ALBUMIN (test code = 6786552335) 4.3 g/dL 3.5-5 ALK PHOS (test code = 8123710546) 80 U/L 34-122 ALTv (test code = 1742-6) 21 U/L 5-50 AST(SGOT) (test code = 9723807915) 21 U/L 13-40 eGFR Calculation (Non-) (test code = 4112829529) mL/min/1.73m2 eGFR Calculation () (test code = 6471327637) mL/min/1.73m2 LAURIE (test code = LAURIE) Association of Glomerular Filtration Rate (GFR) and Staging of Kidney Disease* + --+ --+ ------+| GFR (mL/min/1.73 m2) ?| With Kidney Damage ?| ?Without Kidney Damage+ --------+ --------+ +| ?>90 ?| ?Stage one ?| ? Normal ?+ ---+ ---+ -------+| ?60-89 ?| ?Stage two ?| ? Decreased GFR ? + --+ --+ ------+| ?30-59 ?| ?Stage three ?| ? Stage three ? + --+ --+ ------+| ?15-29 ?| ?Stage four ? | ? Stage four ?+ ---+ ---+ -------+| ?<15 (or dialysis) ? ?| ?Stage five ? | ? Stage five ?+ ---+ ---+ -------+ *Each stage assumes the associated GFR level has been in effect for at least three months. ?Stages 1 to 5, with or without kidney disease, indicate chronic kidney disease. Notes: Determination of stages one and two (with eGFR >59mL/min/1.73 m2) requires estimation of kidney damage for at least three months as defined by structural or functional abnormalities of the kidney, manifested by either:Pathological abnormalities or Markers of kidney damage (including abnormalities in the composition of the blood or urine or abnormalities in imaging tests). Lab Interpretation (test code = 80863-6) [facility] 23:50:00* Test Item Value Reference Range Interpretation Comme nts LIPASE (test code = 1076016277) 68 U/L 0-220 Lab Interpretation (test cod e = 94139-8) [facility] [id number] 23:22:00* Test Item Value Reference Range Interpretation Comme nts WBC (test code = 6690-2) See_Comment [Automated [employer]] The system which generated this result transmitted reference range: 4.20 - 10.70 10*3/?L. The reference range was not used to interpret this result as normal/abnormal. RBC (test code = 789-8) See_Comment [Automated [employer]] The system which generated this result transmitted reference range: 4.26 - 5.52 10*6/?L. The reference range was not used to interpret this result as normal/abnormal. HGB (test code = 718-7) 14.0 g/dL 12.2-16.4 HCT (test code = 4544-3) 41.1 % 38.4-49.3 MCV (test code = 787-2) 89.0 fL 81.7-95.6 MCH (test code = 785-6) 30.3 pg 26.1-32.7 MCHC (test code = 786-4) 34.1 g/dL 31.2-35 RDW-SD (test code = 06277-8) 40.8 fL 38.5-51.6 RDW-CV (test code = 788-0) 12.5 % 12.1-15.4 PLT (test code = 777-3) See_Comment [Automated [employer] ge] The system which generated this result transmitted reference range: 150 - 328 10*3/?L. The reference range was not used to interpret this result as normal/abnormal. MPV (test code = 99524-4) 9.1 fL 9.8-13 L NRBC/100 WBC (test code = 9407583513) See_Comment [Automated [employer] ssage] The system which generated this result transmitted reference range: 0.0 - 10.0 /100 WBCs. The reference range was not used to interpret this result as normal/abnormal. NRBC x10^3 (test code = 2522319587) <0.01 See_Comment [Automated [employer] ge] The system which generated this result transmitted reference range: 10*3/?L. The reference range was not used to interpret this result as normal/abnormal. GRAN MAT (NEUT) % (test code = 770-8) 59.0 % IMM GRAN % (test code = 3316206329) 0.60 % LYMPH % (test code = 736-9) 31.3 % MONO % (test code = 5905-5) 6.6 % EOS % (test code = 713-8) 1.9 % BASO % (test code = 706-2) 0.6 % GRAN MAT x10^3(ANC) (test code = 8663803902) 5.85 10*3/uL 1.99-6.95 IMM GRAN x10^3 (test code = 4095797339) 0.06 10*3/uL 0-0.06 LYMPH x10^3 (test code = 731-0) 3.10 10*3/uL 1.09-3.23 MONO x10^3 (test code = 742-7) 0.65 10*3/uL 0.36-1.02 EOS x10^3 (test code = 711-2) 0.19 10*3/uL 0.06-0.53 BASO x10^3 (test code = 704-7) 0.06 10*3/uL 0.01-0.09 Lab Interpretation (test code = 42031-7) [facility] W [id number] 17:21:17CT Abdomen and Pelvis with intravenous contrast. CLINICAL HISTORY: Abdominal infection including peritonitis. DOSE: Up-to-date CT equipment and radiation dose reduction techniques wereemployed. CTDIvol: 10.76 mGy. DLP: 553 mGy-cm. TECHNIQUE : Contiguous axial imaging from the level of the lung bases through the pubic symphysis were performed after the uncomplicatedadministration of Omnipaque contrast material. Coronal and sagittalreconstructions were obtained. Auto mA and/or iterative reconstruction wereused to reduce radiation dose. FINDINGS: Comparison has been made with 08/27/2020 study. Lower lungs: Clear. No pleural effusion or pericardial effusion. Liver, Gallbladder and Spleen: Liver is approximately 19 cm and showed nofocal enhancing lesions. Spleen is of normal size. Cholecystectomy noted.Biliary ducts and the pancreatic duct appear of normal size. Peritoneum: ?No free air or free fluid. No lymphadenopathy. Pancreas and Adrenals: ?Unremarkable pancreas and adrenal glands. Kidneys and Ureters: ?No visible calculi in the renal collecting systems. No hydroureter or hydronephrosis. Vessels: Minimal atherosclerosis in the proximal right common iliac artery. Retroperitoneum: No abnormal fluid or lymphadenopathy. Bowel: Mild diverticulosis of the sigmoid colon without any acute changes.Normal appendix is visualized. Bladder and Reproductive Organs: Unremarkable, incompletely and unopacifieddistended urinary bladder, except for thickened pike which is likely dueto underdistention. Central zone prostatic calcifications noted. Bones: No acute findings. Bilateral L5 spondylolysis noted withoutspondylolisthesis. Soft tissues: Soft tissue abnormality in the right epigastric laparoscopicport site noted with probable 3 cm size subcutaneous hematoma andcongestion of the underlying intra-abdominal fat. Small indirect type left inguinal hernia suspected. CONCLUSION:1. Changes of recent laparoscopic cholecystectomy. Soft tissue swellingwith congestion of the intra- abdominal fat and 3 cm size subcutaneoushematoma in the right epigastric laparoscopic port site. No free fluid inthe abdomen or in the pelvis.2. Hepatomegaly. [facility], Radiant Results Inft User - 09/06/2020 11:22 AM CSTCT Abdomen and Pelvis with intravenous contrast.CLINICAL HISTORY: Abdominal infection includingperitonitis.DOSE: Up-to-date CT equipment and radiation dose reduction techniques wereemployed. CTDIvol: 10.76 mGy. DLP: 553 mGy-cm.TECHNIQUE : Contiguous axial imaging from the level of the lung basesthrough the pubic symphysis were performed after the uncomplicatedadministration of Omnipaque contrast material. Coronal and sagittalreconstructions were obtained. Auto mA and/or iterative reconstruction wereused to reduce radiation dose.FINDINGS: Comparison has been made with 08/27/2020 study.Lower lungs: Clear. No pleural effusion or pericardial effusion.Liver, Gallbladder and Spleen: Liver is a pproximately 19 cm and showed nofocal enhancing lesions. Spleen is of normal size. Cholecystectomy noted.Biliary ducts and the pancreatic duct appear of normal size.Peritoneum: No free air or free fluid. No lymphadenopathy.Pancreas and Adrenals: Unremarkable pancreas and adrenal glands.Kidneys and Ureters: No visible calculi in the renal collecting systems. No hydroureter or hydronephrosis. Vessels: Minimal atherosclerosis in the proximal right common iliac artery.Retroperitoneum: No abnormal fluid or lymphadenopathy.Bowel: Mild diverticulosis of the sigmoid colon without any acute changes.Normal appendix is visualized.Bladder and Reproductive Organs: Unremarkable, incompletely and unopacifieddistended urinary bladder, except for thickened pike which is likely dueto underdistention. Central zone prostatic calcifications noted.Bones: No acute findings. Bilateral L5 spondylolysis noted withoutspondylolisthesis.Soft tissues: Soft tissue abnormality in the right epigastric laparoscopicport site noted with probable 3 cm size subcutaneous hematoma andcongestion of the underlying intra-abdominal fat.Small indirect type left inguinal hernia suspected.CONCLUSION:1. Changes of recent laparoscopic cholecystectomy. Soft tissue swellingwith congestion of the intra-abdominal fat and 3 cm size subcutaneoushematoma in the right epigastric laparoscopic port site. No free fluid inthe abdomen or in the pelvis.2. Hepatomegaly.[facility]. METABOLIC PANEL (73127)2020-09-06 16:39:00* Test Item Value Reference Range Interpretation Comme nts NA (test code = 0737514219) 138 mmol/L 135-145 K (test code = 1553180182) 4.2 mmol/L 3.5-5 CL (test code = 7057947075) 103 mmol/L 98-108 CO2 TOTAL (test code = 7172892425) 25 mmol/L 23-31 AGAP (test code = 6068319597) 2-16 BUN (test code = 3882031963) 17 mg/dL 7-23 GLUCOSE (test code = 4218959993) 124 mg/dL 70-110 H CREATININE (test code = 3072423009) 0.95 mg/dL 0.6-1.25 TOTAL BILI (test code = 2657322679) 0.4 mg/dL 0.1-1.1 CALCIUM (test code = 2348064162) 9.7 mg/dL 8.6-10.6 T PROTEIN (test code = 6166082168) 7.9 g/dL 6.3-8.2 ALBUMIN (test code = 4485976110) 4.5 g/dL 3.5-5 ALK PHOS (test code = 9041157603) 75 U/L 34-122 ALTv (test code = 1742-6) 28 U/L 5-50 AST(SGOT) (test code = 0895948254) 23 U/L 13-40 eGFR Calculation (Non-) (test code = 2098811038) mL/min/1.73m2 eGFR Calculation () (test code = 7316783645) mL/min/1.73m2 LAURIE (test code = LAURIE) Association of Glomerular Filtration Rate (GFR) and Staging of Kidney Disease* + --+ --+ ------+| GFR (mL/min/1.73 m2) ?| With Kidney Damage ?| ?Without Kidney Damage+ --------+ --------+ +| ?>90 ?| ?Stage one ?| ? Normal ?+ ---+ ---+ -------+| ?60-89 ?| ?Stage two ?| ? Decreased GFR ? + --+ --+ ------+| ?30-59 ?| ?Stage three ?| ? Stage three ? + --+ --+ ------+| ?15-29 ?| ?Stage four ? | ? Stage four ?+ ---+ ---+ -------+| ?<15 (or dialysis) ? ?| ?Stage five ? | ? Stage five ?+ ---+ ---+ -------+ *Each stage assumes the associated GFR level has been in effect for at least three months. ?Stages 1 to 5, with or without kidney disease, indicate chronic kidney disease. Notes: Determination of stages one and two (with eGFR >59mL/min/1.73 m2) requires estimation of kidney damage for at least three months as defined by structural or functional abnormalities of the kidney, manifested by either:Pathological abnormalities or Markers of kidney damage (including abnormalities in the composition of the blood or urine or abnormalities in imaging tests). Lab Interpretation (test code = 66143-4) [facility] 16:39:00* Test Item Value Reference Range Interpretation Comme nts LIPASE (test code = 8745612745) 70 U/L 0-220 Lab Interpretation (test cod e = 48497-1) [facility]2020-[facility]-18 16:39:00* Test Item Value Reference Range Interpretation Comme nts MAGNESIUM (test code = 0312665217) 1.9 mg/dL 1.7-2.4 Lab Interpretation (test cod e = 73886-3) Normal [facility] AreaL[facility] Whole [id number] 16:38:00* Test Item Value Reference Range Interpretation Comme nts LACTIC ACID (test code = 4374658166) 1.51 mmol/L [facility] WITH [id number] 16:20:00* Test Item Value Reference Range Interpretation Comme nts WBC (test code = 6690-2) See_Comment [Automated [employer]] The system which generated this result transmitted reference range: 4.20 - 10.70 10*3/?L. The reference range was not used to interpret this result as normal/abnormal. RBC (test code = 789-8) See_Comment [Automated messa ge] The system which generated this result transmitted reference range: 4.26 - 5.52 10*6/?L. The reference range was not used to interpret this result as normal/abnormal. HGB (test code = 718-7) 14.7 g/dL 12.2-16.4 HCT (test code = 4544-3) 44.8 % 38.4-49.3 MCV (test code = 787-2) 90.9 fL 81.7-95.6 MCH (test code = 785-6) 29.8 pg 26.1-32.7 MCHC (test code = 786-4) 32.8 g/dL 31.2-35 RDW-SD (test code = 42391-0) 42.2 fL 38.5-51.6 RDW-CV (test code = 788-0) 12.6 % 12.1-15.4 PLT (test code = 777-3) See_Comment [Automated [employer]] The system which generated this result transmitted reference range: 150 - 328 10*3/?L. The reference range was not used to interpret this result as normal/abnormal. MPV (test code = 37073-7) 9.3 fL 9.8-13 L NRBC/100 WBC (test code = 2509282585) See_Comment [Automated [employer]] The system which generated this result transmitted reference range: 0.0 - 10.0 /100 WBCs. The reference range was not used to interpret this result as normal/abnormal. NRBC x10^3 (test code = 7097836865) <0.01 See_Comment [Automated [employer]] The system which generated this result transmitted reference range: 10*3/?L. The reference range was not used to interpret this result as normal/abnormal. GRAN MAT (NEUT) % (test code = 770-8) 64.9 % IMM GRAN % (test code = 1950427748) 0.50 % LYMPH % (test code = 736-9) 25.0 % MONO % (test code = 5905-5) 7.5 % EOS % (test code = 713-8) 1.3 % BASO % (test code = 706-2) 0.8 % GRAN MAT x10^3(ANC) (test code = 3104463739) 5.99 10*3/uL 1.99-6.95 IMM GRAN x10^3 (test code = 4991269762) 0.05 10*3/uL 0-0.06 LYMPH x10^3 (test code = 731-0) 2.31 10*3/uL 1.09-3.23 MONO x10^3 (test code = 742-7) 0.69 10*3/uL 0.36-1.02 EOS x10^3 (test code = 711-2) 0.12 10*3/uL 0.06-0.53 BASO x10^3 (test code = 704-7) 0.07 10*3/uL 0.01-0.09 Lab Interpretation (test code = 40731-0) [facility] (22460)2020-08-30 10:29:00* Test Item Value Reference Range Interpretation Comme nts NA (test code = 4925065957) 139 mmol/L 135-145 K (test code = 5427054685) 4.7 mmol/L 3.5-5 CL (test code = 3857835908) 105 mmol/L 98-108 CO2 TOTAL (test code = 7218332182) 24 mmol/L 23-31 AGAP (test code = 2095930108) 2-16 BUN (test code = 8347995568) 21 mg/dL 7-23 GLUCOSE (test code = 4952924245) 109 mg/dL 70-110 CREATININE (test code = 1990624092) 0.99 mg/dL 0.6-1.25 TOTAL BILI (test code = 9008838968) 0.4 mg/dL 0.1-1.1 CALCIUM (test code = 5381886513) 9.4 mg/dL 8.6-10.6 T PROTEIN (test code = 5902182166) 7.4 g/dL 6.3-8.2 ALBUMIN (test code = 1800790928) 4.2 g/dL 3.5-5 ALK PHOS (test code = 9850314518) 68 U/L 34-122 ALTv (test code = 1742-6) 33 U/L 5-50 AST(SGOT) (test code = 0114320640) 28 U/L 13-40 eGFR Calculation (Non-) (test code = 2549904169) mL/min/1.73m2 eGFR Calculation () (test code = 1661069362) mL/min/1.73m2 LAURIE (test code = LAURIE) Association of Glomerular Filtration Rate (GFR) and Staging of Kidney Disease* + -+ + ---+| GFR (mL/min/1.73 m2) ?| With Kidney Damage ?| ?Without Kidney Damage+ -------+ ------+ ---------+| ?>90 ?| ?Stage one ?| ? Normal ?+ --+ -+ ----+| ?60-89 ?| ?Stage two ?| ? Decreased GFR ? + -+ + ---+| ?30-59 ?| ?Stage three ?| ? Stage three ? + -+ + ---+| ?15-29 ?| ?Stage four ? | ? Stage four ?+ --+ -+ ----+| ?<15 (or dialysis) ? ?| ?Stage five ? | ? Stage five ?+ --+ -+ ----+ *Each stage assumes the associated GFR level has been in effect for at least three months. ?Stages 1 to 5, with or without kidney disease, indicate chronic kidney disease. Notes: Determination of stages one and two (with eGFR >59mL/min/1.73 m2) requires estimation of kidney damage for at least three months as defined by structural or functional abnormalities of the kidney, manifested by either:Pathological abnormalities or Markers of kidney damage (including abnormalities in the composition of the blood or urine or abnormalities in imaging tests). [facility] WITH [id number] 09:50:00* Test Item Value Reference Range Interpretation Comme nts WBC (test code = 6690-2) See_Comment H [Automated message] The system which generated this result transmitted reference range: 4.20 - 10.70 10*3/?L. The reference range was not used to interpret this result as normal/abnormal. RBC (test code = 789-8) See_Comment [Automated message] The system which generated this result transmitted reference range: 4.26 - 5.52 10*6/?L. The reference range was not used to interpret this result as normal/abnormal. HGB (test code = 718-7) 13.7 g/dL 12.2-16.4 HCT (test code = 4544-3) 42.3 % 38.4-49.3 MCV (test code = 787-2) 92.2 fL 81.7-95.6 MCH (test code = 785-6) 29.8 pg 26.1-32.7 MCHC (test code = 786-4) 32.4 g/dL 31.2-35 RDW-SD (test code = 78980-6) 43.6 fL 38.5-51.6 RDW-CV (test code = 788-0) 13.0 % 12.1-15.4 PLT (test code = 777-3) See_Comment [Automated message] The system which generated this result transmitted reference range: 150 - 328 10*3/?L. The reference range was not used to interpret this result as normal/abnormal. MPV (test code = 15866-2) 10.0 fL 9.8-13 NRBC/100 WBC (test code = 5584976748) See_Comment [Automated message] The system which generated this result transmitted reference range: 0.0 - 10.0 /100 WBCs. The reference range was not used to interpret this result as normal/abnormal. NRBC x10^3 (test code = 0025402430) <0.01 See_Comment [Automated message] The system which generated this result transmitted reference range: 10*3/?L. The reference range was not used to interpret this result as normal/abnormal. GRAN MAT (NEUT) % (test code = 770-8) 80.1 % IMM GRAN % (test code = 9481835532) 0.50 % LYMPH % (test code = 736-9) 12.5 % MONO % (test code = 5905-5) 6.5 % EOS % (test code = 713-8) 0.1 % BASO % (test code = 706-2) 0.3 % GRAN MAT x10^3(ANC) (test code = 4575880855) 12.09 10*3/uL 1.99-6.95 H IMM GRAN x10^3 (test code = 1668463657) 0.08 10*3/uL 0-0.06 H LYMPH x10^3 (test code = 731-0) 1.89 10*3/uL 1.09-3.23 MONO x10^3 (test code = 742-7) 0.98 10*3/uL 0.36-1.02 EOS x10^3 (test code = 711-2) <0.03 0.06-0.53 L BASO x10^3 (test code = 704-7) 0.04 10*3/uL 0.01-0.09 Lab Interpretation (test code = 08452-4) [facility][id number][facility] (ALB,T.PRO,BILI T,BU/BC,ALT,AST,ALK PHOS)2020-08-28 21:15:00* Test Item Value Reference Range Interpretation Comme nts TOTAL BILI (test code = 6038847759) 0.6 mg/dL 0.1-1.1 BILI UNCON (test code = 1270994500) 0.4 mg/dL 0.1-1.1 BILI CONJ (test code = 3358714386) 0.0 mg/dL 0-0.3 T PROTEIN (test code = 4840648669) 7.2 g/dL 6.3-8.2 ALBUMIN (test code = 3211159298) 3.9 g/dL 3.5-5 ALK PHOS (test code = 7964270545) 65 U/L 34-122 ALTv (test code = 1742-6) 20 U/L 5-50 AST(SGOT) (test code = 8986602557) 25 U/L 13-40 Lab Interpretation (test cod e = 04975-3) [facility] [id number] 18:22:30 Hepatomegaly with moderate hepatic steatosis. Cholelithiasis without acute cholecystitis or biliaryductal dilatation.Reported positive Abel's sign which could be related to stone. US ABDOMEN COMPLETE 08/28/2020 11:30 AM HISTORY: RLQ Pian COMPARISON: CT abdomen pelvis 08/27/2020. FINDINGS: LIVER: Enlarged measuring 18 cm with increased echo-texture consistent withhepatic steatosis. Areas of fattysparing is noted adjacent to gallbladder.No focal hepatic lesion. ?Normal hepatopetal ?flow within the main portalvein. Main portal vein diameter: 1.0 cm. GALLBLADDER: A 2.5 cm stone is seen in the gallbladder. Pericholecysticfluid, or gallbladder distention. Positive sonographic Abel's sign. Thecommon bile duct measures 2.4 cm. PANCREAS: The visualized portion of the pancreas is unremarkable. RIGHT KIDNEY: Length of 11.4 cm. Normal cortical thickness andechogenicity. No hydronephrosis. LEFT KIDNEY: Length of 11.5 cm. Normal cortical thickness and echogenicity.No hydronephrosis. SPLEEN: Normal. Measures 9.4 cm. AORTA: The proximal aorta measures 2.1 cm. IVC: The visualized portion is unremarkable on grayscale. [facility], Radiant Results Inft User - 08/28/2020 12:23 PM CSTUS ABDOMEN COMPLETE 08/28/2020 11:30 AM HISTORY: RLQ Pian COMPARISON: CT abdomen pelvis 08/27/2020. FINDINGS: LIVER: Enlarged measuring 18 cm with increased echo-texture consistent withhepatic steatosis. Areas of fatty sparing is noted adjacent to gallbladder.No focal hepatic lesion. Normal hepatopetal flow within the main portalvein. Main portal vein diameter: 1.0 cm.GALLBLADDER: A 2.5 cm stone is seen in the gallbladder. Pericholecysticfluid, or gallbladder distention. Positive sonographic Abel's sign. Thecommon bile duct measures 2.4 cm.PANCREAS: The visualized portion of the pancreas is unremarkable.RIGHT KIDNEY: Length of 11.4 cm. Normal cortical thickness andechogenicity. No hydronephrosis.LEFT KIDNEY: Length of 11.5 cm. Normal cortical thickness and echogenicity.No hydronephrosis.SPLEEN: Normal. Measures 9.4 cm.AORTA: The proximal aorta measures 2.1 cm.IVC: The visualized portion is unremarkable on grayscale. IMPRESSION Hepatomegaly with moderate hepatic steatosis. Cholelithiasis without acute cholecystitis or biliary ductal dilatation.Reported positive Abel's sign which could be related to stone. [facility] [id number] 14:32:06No acute cardiopulmonary abnormality. Preliminary Report Dictated by Resident: Gayla Lomeli I, Barry Zavala MD., have reviewed this study and agree with theabove report.XR CHEST 1 VWComparison: 07/09/2020 History: chest pain Technique: Frontal radiograph Findings: The lungs are clear. No pleural effusion, focal consolidation, orpneumothorax is identified. Splaying of the sid noted suspicious for left atrial enlargement. No acute osseous abnormality is present. [facility], Radiant Results Inft User - 08/28/2020 8:33 AM CSTXR CHEST 1 VWComparison: 07/09/2020History: chest pain Technique: Frontal radiographFindings:The lungs are clear. No pleural effusion, focal consolidation, orpneumothorax is identified. Splaying of the sid noted suspicious for left atrial enlargement.No acute osseous abnormality is present.IMPRESSIONNo acute cardiopulmonary abnormality.Preliminary Report Dictated by Resident: Gayla Trujillo, Barry Mckeon MD., have reviewed this study andagree with theabove report.[facility] Metabolic Panel (NA, K, CL, CO2, GLUCOSE, BUN, CREATININE, CA) 2020-08-28 11:39:00* Test Item Value Reference Range Interpretation Comme nts NA (test code = 6277868439) 137 mmol/L 135-145 K (test code = 0767375829) 3.9 mmol/L 3.5-5 CL (test code = 1522072138) 104 mmol/L 98-108 CO2 TOTAL (test code = 6781397124) 28 mmol/L 23-31 AGAP (test code = 9913504757) 2-16 BUN (test code = 9354980016) 15 mg/dL 7-23 GLUCOSE (test code = 0127279376) 96 mg/dL 70-110 CREATININE (test code = 9591191988) 0.68 mg/dL 0.6-1.25 CALCIUM (test code = 1556175548) 9.2 mg/dL 8.6-10.6 eGFR Calculation (Non-) (test code = 2845498487) mL/min/1.73m2 eGFR Calculation () (test code = 7900540994) mL/min/1.73m2 LAURIE (test code = LAURIE) Association of Glomerular Filtration Rate (GFR) and Staging of Kidney Disease* + -+ + ---+| GFR (mL/min/1.73 m2) ?| With Kidney Damage ?| ?Without Kidney Damage+ -------+ ------+ ---------+| ?>90 ?| ?Stage one ?| ? Normal ?+ --+ -+ ----+| ?60-89 ?| ?Stage two ?| ? Decreased GFR ? + -+ + ---+| ?30-59 ?| ?Stage three ?| ? Stage three ? + -+ + ---+| ?15-29 ?| ?Stage four ? | ? Stage four ?+ --+ -+ ----+| ?<15 (or dialysis) ? ?| ?Stage five ? | ? Stage five ?+ --+ -+ ----+ *Each stage assumes the associated GFR level has been in effect for at least three months. ?Stages 1 to 5, with or without kidney disease, indicate chronic kidney disease. Notes: Determination of stages one and two (with eGFR >59mL/min/1.73 m2) requires estimation of kidney damage for at least three months as defined by structural or functional abnormalities of the kidney, manifested by either:Pathological abnormalities or Markers of kidney damage (including abnormalities in the composition of the blood or urine or abnormalities in imaging tests). [facility] PEL[facility] W WO [id number] 19:39:221. ?Diffuse bladder wall thickening is likely due to underdistention.However, correlation with urinalysis is recommended to evaluate forcystitis/CT. 2. ?No acute findings in the abdomen or pelvis otherwise noted.Specifically, no appendicitis or diverticulitis. 3. ?Diffuse fatty infiltration of the liver. Preliminary Report Dictated by Resident: Vahid Ledesma MD., have reviewed this study and agree with theabove report.EXAM: CT ABDOMEN AND PELVIS WITHOUT CONTRAST HISTORY: 44-year-old male with acute abdominal pain,diverticulitis/appendicitis suspected. COMPARISON: CT abdomen and pelvis on 07/10/2020 TECHNIQUE AND FINDINGS: Contiguous axial imaging from the level of the lungbases through the proximal thighs was performed without the intravenousadministration of contrast. Coronal and sagittal reconstructions wereobtained. Auto mA and/or iterative reconstruction were used to reduceradiation dose. FINDINGS: LOWER THORAX: The lung bases are clear. LIVER: No focal hepatic lesions. Normal liver contour. Suspected diffusehepatic steatosis with relative fatty sparing at gallbladder fossa. GALLBLADDER AND BILIARY TREE: No biliary ductal dilation. No radiopaquecholelithiasis No gallbladder wall thickening. SPLEEN: Splenomegaly. PANCREAS: No ductal dilation or masses ADRENAL GLANDS: No adrenal nodules KIDNEYS: No hydronephrosis, stones, or masses. PERITONEUM AND RETROPERITONEUM: No free air or fluid. LYMPH NODES: No lymphadenopathy. GI TRACT: No dilation or wall thickening. The appendix is normal. Moderateamount of fecal material is noted in the colon. PELVIS/BLADDER: Urinary bladder wall is partially decompressed with diffusewall thickening. VESSELS: Unremarkable. 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 Tiny bilateral fat- containinginguinal hernias. [facility], Radiant Results Inft User - 08/27/2020 1:40 PM CSTEXAM: CT ABDOMEN AND PELVIS WITHOUT CONTRASTHISTORY: 44-year-old male with acute abdominal pain,diverticulitis/appendicitis suspected.COMPARISON: CT abdomen and pelvis on 07/10/2020TECHNIQUE AND FINDINGS: Contiguous axial imaging from the level of the lungbases through the proximal thighs was performed without the intravenousadministration of contrast. Coronal and sagittal recon structions wereobtained. Auto mA and/or iterative reconstruction were used to reduceradiation dose.FINDINGS:LOWER THORAX: The lung bases are clear.LIVER: No focal hepatic lesions. Normal liver contour. Suspected diffusehepatic steatosis with relative fatty sparing at gallbladder fossa.GALLBLADDER AND BILIARY TREE: No biliary ductal dilation. No radiopaquecholelithiasis No gallbladder wall thickening.SPLEEN: Splenomegaly.PANCREAS: No ductal dilation or massesADRENAL GLANDS: No adrenal nodulesKIDNEYS: No hydronephrosis, stones, or masses.PERITONEUM AND RETROPERITONEUM: No free air or fluid.LYMPH NODES: No lymphadenopathy.GI TRACT: No dilation or wall thickening. The appendix is normal. 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 Tiny bilateral fat-containinginguinal hernias.IMPRESSION1. Diffuse bladder wall thickening is likely due to underdistention.However, correlation with urinalysis is recommended to evaluate forcystitis/CT.2. No acute findingsin the abdomen or pelvis otherwise noted.Specifically, no appendicitis or diverticulitis.3. Diffusefatty infiltration of the liver.Preliminary Report Dictated by Resident: Vahid Greene MD., have reviewed this study and agree with theabove report.[facility] GLUCOSE (AUTOMATED) 2020-08-27 19:34:00* Test Item Value Reference Range Interpretation Comme nts POCT GLU (test code = 0546849212) 95 mg/dL 70-110 Lab Interpretation (test cod e = 32479-9) Normal [facility] AreaTROPONIN [id number] 19:12:00* Test Item Value Reference Range Interpretation Comme nts TROPONIN I (test code = 4267291271) <0.012 See_Comment [Automated message] The system which generated this result transmitted reference range: <=0.034 ng/mL. The reference range was not used to interpret this result as normal/abnormal. LAURIE (test code = LAURIE) Equal or Less than 0.034 ng/ml---Normal ?Note: Cardiac troponin begins to rise 3-4 hours after the onset of ischemia. Repeat in 4-6 hours if the sample was drawn within 3-4 hours of the onset of the symptom and found normal. Between 0.035 and 0.120 ng/mL--- Borderline. Questionable myocardial injury or necrosis ? ?Note: Serial measurement may be necessary to confirm or exclude the diagnosis of myocardial injury or necrosis; Clinical correlation (symptoms, EKGs, imaging studies, and others) required; Repeat in 4-6 hours if clinically indicated. ? Equal or Higher than 0.121 ng/mL---Abnormal. Myocardial Injury or Necrosis Likely ? Biotin has been reported to cause a negative bias, interpret results relative to patient's use of biotin. ? Lab Interpretation (test code = 88956-1) Normal [facility] GLUCOSE (AUTOMATED)2020-08-27 14:42:00* Test Item Value Reference Range Interpretation Comme nts POCT GLU (test code = 7383462042) 99 mg/dL 70-110 Lab Interpretation (test cod e = 63917-4) Normal [facility] AreaTROPONIN [id number] 13:09:00* Test Item Value Reference Range Interpretation Comme nts TROPONIN I (test code = 1076509645) <0.012 See_Comment [Automated message] The system which generated this result transmitted reference range: <=0.034 ng/mL. The reference range was not used to interpret this result as normal/abnormal. LAURIE (test code = LAURIE) Equal or Less than 0.034 ng/ml---Normal ?Note: Cardiac troponin begins to rise 3-4 hours after the onset of ischemia. Repeat in 4-6 hours if the sample was drawn within 3-4 hours of the onset of the symptom and found normal. Between 0.035 and 0.120 ng/mL--- Borderline. Questionable myocardial injury or necrosis ? ?Note: Serial measurement may be necessary to confirm or exclude the diagnosis of myocardial injury or necrosis; Clinical correlation (symptoms, EKGs, imaging studies, and others) required; Repeat in 4-6 hours if clinically indicated. ? Equal or Higher than 0.121 ng/mL---Abnormal. Myocardial Injury or Necrosis Likely ? Biotin has been reported to cause a negative bias, interpret results relative to patient's use of biotin. ? Lab Interpretation (test code = 42665-7) Normal [facility] AreaLIPID PANEL (11904)(TOTAL CHOLESTEROL, TRIGLYCERIDES, HDL)2020-08-27 08:31:00* Test Item Value Reference Range Interpretation Comme nts CHOL (test code = 6603649708) 208 mg/dL 120-200 H HDL (test code = 9406935520) 28 mg/dL >40 L HDLC RATIO (test code = 2837357528) See_Comment H [Automated [employer]] The system which generated this result transmitted reference range: <=5.0. The reference range was not used to interpret this result as normal/abnormal. TRIG (test code = 3087888433) 351 mg/dL 30-170 H LDL CHOL (test code = 45097-1) 110 mg/dL See_Comment [Automated [employer]] The system which generated this result transmitted reference range: <=160. The reference range was not used to interpret this result as normal/abnormal. VLDL (test code = 3474422161) 70 mg/dL 5-60 H Lab Interpretation (test code = 73109-0) Abnormal [facility] AreaTHYROID STIMULATING [id number] 08:00:00 * Test Item Value Reference Range Interpretation Comme nts TSH (test code = 3181751700) See_Comment L Biotin has been reported to cause a negative bias, interpret results relative to patient's use of biotin. [Automated message] The system which generated this result transmitted reference range: 0.45 - 4.70 mIU/L. The reference range was not used to interpret this result as normal/abnormal. Lab Interpretation (test code = 45674-9) Abnormal [facility] AreaCOVID-19 (ID NOW RAPID TESTING)2020-08-27 07:03:00* Test Item Value Reference Range Interpretation Comme nts SARS-CoV-2 Rapid ID NOW (test code = 43115-0) Not Detected Not Detected LAURIE (test code = LAURIE) ID NOW COVID-19 As say is an isothermal nucleic acid amplification test intended for the qualitative detection of nucleic acid from SARS-CoV-2 viral RNA in nasopharyngeal (WATER PLUMBER) specimens. It is used under Emergency Use Authorization (EUA) by FDA. The limit of detection (LOD) of the assay is 125 Genome Equivalents/mL. A positive result is indicative of the presence of SARS-CoV-2 RNA. ?Clinical correlation with patient history and other diagnostic [...] for repeat patient testing if clinically indicated. Lab Interpretation (test code = 40643-2) Normal [facility] AreaADC / [facility] - DRUG SCREEN [id number] 06:58:00* Test Item Value Reference Range Interpretation Comme nts BENZO U (test code = 4692842938) Negative Negative HORACIO U (test code = 2051964342) Negative Negative AMPHET (test code = 2174485446) Negative Negative THC (test code = 5362375390) Negative Negative METHADONE (test code = 9969130873) Negative Negative Meth U (test code = 1247326968) Negative Negative OPIATES (test code = 9886249728) Negative Negative Cocaine Metabolite (test code = 5713008932) Negative Negative PROPOXY (test code = 2082755945) Negative Negative Tric U (test code = 4934788078) Negative Negative PCP (test code = 8909917804) Negative Negative OXYCOD (test code = 3652753335) Negative Negative LAURIE (test code = LAURIE) Urine Drug Cutoff Ranges Benzodiazepines: ? ? 150 ng/mLBarbiturates: ?200 ng/mLAmphetamine: ? 500 ng/mLCannabinoids: ?50 ?ng/mLMethadone: ? 200 ng/mLMethamphetamine: ? ? 500 ng/mL Opiates: ? 100 ng/mL or 2000 ng/mLCocaine: ? 150 ng/mLPropoxyphene: ?300 ng/mLTricyclics: ?300 ng/mLOxycodone: ? 100 ng/mLPCP: ? 25 ?ng/mL The results are to be used only for medical (i.e., treatment) purposes. Unconfirmed screening results must not be used for non-medical purposes (e.g., employment testing, legal testing). Lab Interpretation (test code = 37234-1) Normal [facility] AreaUrinalysis2020-11-08 06:51:00* Test Item Value Reference Range Interpretation Comme nts APPEARANCE (test code = 3919036032) Clear Clear COLOR (test code = 4797326702) Yellow Yellow PH (test code = 0262399277) 4.8-8.0 SP GRAVITY (test code = 4381402433) 1.003-1.030 GLU U QUAL (test code = 9824661997) Normal Normal BLOOD (test code = 3501876983) Negative Negative KETONES (test code = 2290325066) 20 mg/dL Negative A PROTEIN (test code = 2887-8) Negative Negative UROBILIN (test code = 8996723839) Normal Normal BILIRUBIN (test code = 0611434441) Negative Negative NITRITE (test code = 4489169802) Negative Negative LEUK KENNY (test code = 9683701844) Negative Negative RBC/HPF (test code = 3099198804) See_Comment [Automated [employer]] The system which generated this result transmitted reference range: 0 - 3 HPF. The reference range was not used to interpret this result as normal/abnormal. WBC/HPF (test code = 6854204489) See_Comment [Automated [employer]] The system which generated this result transmitted reference range: 0 - 5 HPF. The reference range was not used to interpret this result as normal/abnormal. BACTERIA (test code = 3456522115) Negative Negative MUCOUS (test code = 7620199566) Slight Negative LPF A Lab Interpretation (test code = 02395-1) Abnormal [facility] [id number] 06:45:00* Test Item Value Reference Range Interpretation Comme nts TROPONIN I (test code = 8071593538) <0.012 See_Comment [Automated message] The system which generated this result transmitted reference range: <=0.034 ng/mL. The reference range was not used to interpret this result as normal/abnormal. LAURIE (test code = LAURIE) Equal or Less than 0.034 ng/ml---Normal ?Note: Cardiac troponin begins to rise 3-4 hours after the onset of ischemia. Repeat in 4-6 hours if the sample was drawn within 3-4 hours of the onset of the symptom and found normal. Between 0.035 and 0.120 ng/mL--- Borderline. Questionable myocardial injury or necrosis ? ?Note: Serial measurement may be necessary to confirm or exclude the diagnosis of myocardial injury or necrosis; Clinical correlation (symptoms, EKGs, imaging studies, and others) required; Repeat in 4-6 hours if clinically indicated. ? Equal or Higher than 0.121 ng/mL---Abnormal. Myocardial Injury or Necrosis Likely ? Biotin has been reported to cause a negative bias, interpret results relative to patient's use of biotin. ? 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 Fatalities Reported [facility] Metabolic Panel (NA, K, CL, CO2, GLUCOSE, BUN, CREATININE, CA)2020-08-27 06:33:00* Test Item Value Reference Range Interpretation Comme nts NA (test code = 6270275058) 137 mmol/L 135-145 K (test code = 8966308083) 3.6 mmol/L 3.5-5 CL (test code = 1797516566) 102 mmol/L 98-108 CO2 TOTAL (test code = 6261242022) 26 mmol/L 23-31 AGAP (test code = 5165682651) 2-16 BUN (test code = 6599968751) 13 mg/dL 7-23 GLUCOSE (test code = 2631843280) 119 mg/dL 70-110 H CREATININE (test code = 6856899905) 0.86 mg/dL 0.6-1.25 CALCIUM (test code = 4582568345) 9.8 mg/dL 8.6-10.6 eGFR Calculation (Non-) (test code = 5607517622) mL/min/1.73m2 eGFR Calculation () (test code = 5041385940) mL/min/1.73m2 LAURIE (test code = LAURIE) Association of Glomerular Filtration Rate (GFR) and Staging of Kidney Disease* + --+ --+ ------+| GFR (mL/min/1.73 m2) ?| With Kidney Damage ?| ?Without Kidney Damage+ --------+ --------+ +| ?>90 ?| ?Stage one ?| ? Normal ?+ ---+ ---+ -------+| ?60-89 ?| ?Stage two ?| ? Decreased GFR ? + --+ --+ ------+| ?30-59 ?| ?Stage three ?| ? Stage three ? + --+ --+ ------+| ?15-29 ?| ?Stage four ? | ? Stage four ?+ ---+ ---+ -------+| ?<15 (or dialysis) ? ?| ?Stage five ? | ? Stage five ?+ ---+ ---+ -------+ *Each stage assumes the associated GFR level has been in effect for at least three months. ?Stages 1 to 5, with or without kidney disease, indicate chronic kidney disease. Notes: Determination of stages one and two (with eGFR >59mL/min/1.73 m2) requires estimation of kidney damage for at least three months as defined by structural or functional abnormalities of the kidney, manifested by either:Pathological abnormalities or Markers of kidney damage (including abnormalities in the composition of the blood or urine or abnormalities in imaging tests). Lab Interpretation (test code = 12529-7) Abnormal [facility] AreaHepatic Function Panel (ALB, T.PRO, BILI T, BU/BC, ALT, AST, ALK PHOS)2020-08-27 06:33:00* Test Item Value Reference Range Interpretation Comme nts TOTAL BILI (test code = 5700128478) 0.3 mg/dL 0.1-1.1 BILI UNCON (test code = 4297066852) 0.2 mg/dL 0.1-1.1 BILI CONJ (test code = 1413421726) 0.0 mg/dL 0-0.3 T PROTEIN (test code = 8853265671) 7.8 g/dL 6.3-8.2 ALBUMIN (test code = 8505623567) 4.5 g/dL 3.5-5 ALK PHOS (test code = 3473780944) 71 U/L 34-122 ALTv (test code = 1742-6) 26 U/L 5-50 AST(SGOT) (test code = 0749175417) 26 U/L 13-40 Lab Interpretation (test cod e = 62732-9) Normal [facility] AreaLipase [id number] 06:33:00* Test Item Value Reference Range Interpretation Comme nts LIPASE (test code = 9789969791) 77 U/L 0-220 Lab Interpretation (test cod e = 96455-5) Normal [facility] AreaaPTT2020-11-08 06:19:00* Test Item Value Reference Range Interpretation Comme [facility] APTT Patient (test code = 3173-2) See_Comment [Automated message] The system which generated this result transmitted reference range: 23 - 38 Seconds. The reference range was not used to interpret this result as normal/abnormal. LAURIE (test code = LAURIE) The [facility] patient population mean normal value for aPTT is 30 seconds. Lab Interpretation (test code = 35284-4) Normal [facility] AreaProthrombin Time (PT) / [id number] 06:17:00 * Test Item Value Reference Range Interpretation Comme [facility] PROTIME PATIENT (test code = 5964-2) See_Comment [Automated [employer] ge] The system which generated this result transmitted reference range: 12.0 - 14.7 Seconds. The reference range was not used to interpret this result as normal/abnormal. INR (test code = 6301-6) Normal INR <1.1; Warfarin Therapeutic range 2.0 to 3.0 or 2.5 to 3.5, depending upon the indications. Lab Interpretation (test code = 64187-9) Normal [facility] AreaCBC with [id number] 06:07:00* Test Item Value Reference Range Interpretation Comme [facility] WBC (test code = 6690-2) See_Comment [Automated [employer] ge] The system which generated this result transmitted reference range: 4.20 - 10.70 10*3/?L. The reference range was not used to interpret this result as normal/abnormal. RBC (test code = 789-8) See_Comment [Automated [employer] ge] The system which generated this result transmitted reference range: 4.26 - 5.52 10*6/?L. The reference range was not used to interpret this result as normal/abnormal. HGB (test code = 718-7) 14.2 g/dL 12.2-16.4 HCT (test code = 4544-3) 43.3 % 38.4-49.3 MCV (test code = 787-2) 91.5 fL 81.7-95.6 MCH (test code = 785-6) 30.0 pg 26.1-32.7 MCHC (test code = 786-4) 32.8 g/dL 31.2-35 RDW-SD (test code = 08810-0) 42.9 fL 38.5-51.6 RDW-CV (test code = 788-0) 12.7 % 12.1-15.4 PLT (test code = 777-3) See_Comment [Automated messa ge] The system which generated this result transmitted reference range: 150 - 328 10*3/?L. The reference range was not used to interpret this result as normal/abnormal. MPV (test code = 42978-4) 9.1 fL 9.8-13 L NRBC/100 WBC (test code = 8833071426) See_Comment [Automated [employer]] The system which generated this result transmitted reference range: 0.0 - 10.0 /100 WBCs. The reference range was not used to interpret this result as normal/abnormal. NRBC x10^3 (test code = 9223715347) <0.01 See_Comment [Automated messa ge] The system which generated this result transmitted reference range: 10*3/?L. The reference range was not used to interpret this result as normal/abnormal. GRAN MAT (NEUT) % (test code = 770-8) 52.4 % IMM GRAN % (test code = 9091241666) 0.50 % LYMPH % (test code = 736-9) 37.8 % MONO % (test code = 5905-5) 6.2 % EOS % (test code = 713-8) 2.3 % BASO % (test code = 706-2) 0.8 % GRAN MAT x10^3(ANC) (test code = 8719958414) 4.33 10*3/uL 1.99-6.95 IMM GRAN x10^3 (test code = 5086215093) 0.04 10*3/uL 0-0.06 LYMPH x10^3 (test code = 731-0) 3.13 10*3/uL 1.09-3.23 MONO x10^3 (test code = 742-7) 0.51 10*3/uL 0.36-1.02 EOS x10^3 (test code = 711-2) 0.19 10*3/uL 0.06-0.53 BASO x10^3 (test code = 704-7) 0.07 10*3/uL 0.01-0.09 Lab Interpretation (test code = 22652-9) Abnormal [facility] AreaTROPONIN [id number] 04:41:00* Test Item Value Reference Range Interpretation Comme nts TROPONIN I (test code = 2867768842) 0.000 ng/mL See_Comment [Automated message] The system which generated this result transmitted reference range: <=0.034. The reference range was not used to interpret this result as normal/abnormal. LAURIE (test code = LAURIE) Equal or Less than 0.034 ng/ml---Normal ?Note: Cardiac troponin begins to rise 3-4 hours after the onset of ischemia. Repeat in 4-6 hours if the sample was drawn within 3-4 hours of the onset of the symptom and found normal. Between 0.035 and 0.120 ng/mL--- Borderline. Questionable myocardial injury or necrosis ? ?Note: Serial measurement may be necessary to confirm or exclude the diagnosis of myocardial injury or necrosis; Clinical correlation (symptoms, EKGs, imaging studies, and others) required; Repeat in 4-6 hours if clinically indicated. ? Equal or Higher than 0.121 ng/mL---Abnormal. Myocardial Injury or Necrosis Likely ? Biotin has been reported to cause a negative bias, interpret results relative to patient's use of biotin. ? Lab Interpretation (test code = 98735-9) [facility] DMDVWA2712-25-85 03:46:00* Test Item Value Reference Range Interpretation Comme nts BENZO U (test code = 9413509561) Negative Negative HORACIO U (test code = 9787197044) Negative Negative AMPHET (test code = 3973399970) Negative Negative THC (test code = 3878231605) Negative Negative METHADONE (test code = 1572812610) Negative Negative Meth U (test code = 0275257773) Negative Negative OPIATES (test code = 3162646739) Presumptive Positive Negative A Cocaine Metabolite (test code = 7158048083) Negative Negative PROPOXY (test code = 7933154521) Negative Negative Tric U (test code = 5606572739) Negative Negative PCP (test code = 2078694019) Negative Negative OXYCOD (test code = 1069924874) Negative Negative LAURIE (test code = LAURIE) Urine Drug Cutoff Ranges Benzodiazepines: ? ? 150 ng/mLBarbiturates: ?200 ng/mLAmphetamine: ? 500 ng/mLCannabinoids: ?50 ?ng/mLMethadone: ? 200 ng/mLMethamphetamine: ? ? 500 ng/mL Opiates: ? 100 ng/mL or 2000 ng/mLCocaine: ? 150 ng/mLPropoxyphene: ?300 ng/mLTricyclics: ?300 ng/mLOxycodone: ? 100 ng/mLPCP: ? 25 ?ng/mL The results are to be used only for medical (i.e., treatment) purposes. Unconfirmed screening results must not be used for non-medical purposes (e.g., employment testing, legal testing). Lab Interpretation (test code = 65520-5) [facility]normal [facility]-URVVX9321-57-83 03:29:00* Test Item Value Reference Range Interpretation Comments D-DIMER (test code = 1519844127) <0.27 See_Comment [Automated message] The system which generated this result transmitted reference range: <0.41 ?g/mL (FEU). The reference range was not used to interpret this result as normal/abnormal. LAURIE (test code = LAURIE) This test may be used in conjunction with a clinical pretest probability (PTP) assessment model to exclude venous thromboembolism (VTE) in patients suspected of deep venous thrombosis (DVT) and pulmonary embolism (PE) A D-Dimer value less than 0.50 ?g/ml (FEU) has a negative predicative value of [...] the clinical context, in forming a diagnosis. Lab Interpretation (test code = 95551-7) [facility] Area[facility]IPASE2020-09-21 02:07:00* Test Item Value Reference Range Interpretation Comme nts LIPASE (test code = 5416883546) 58 U/L 0-220 Lab Interpretation (test cod e = 36682-8) [facility] CHEST 1 AN8700-70-44 01:44:02No acute cardiopulmonary abnormality. Preliminary Report Dictated by Resident: Barry Miller MD., have reviewed this study and agree with theabove report.EXAM: XR CHEST 1 VW CLINICAL INDICATION: chest pain COMPARISON: 09/15/2019 FINDINGS: The lungs are hypoventilated. No focal consolidation, pleural effusion, orpneumothorax. Enlargement of the left atrial appendage. No acute osseous abnormality. [facility], Radiant Results Inft User - 07/09/2020 8:45 PM CDTEXAM: XR CHEST 1 VWCLINICAL INDICATION: chest pain COMPARISON: 09/15/2019FINDINGS:The lungs are hypoventilated. No focal consolidation, pleural effusion, orpneumothorax. Enlargement of the left atrial appendage.No acute osse ous abnormality. IMPRESSIONNo acute cardiopulmonary abnormality.Preliminary Report Dictated by Resident: Max Aguirre, Barry Mckeon MD., have reviewed this study and agree with theabove report.[facility] TROPONIN [id number] 01:40:00* Test Item Value Reference Range Interpretation Comme nts TROPONIN I (test code = 2117523478) 0.000 ng/mL See_Comment [Automated message] The system which generated this result transmitted reference range: <=0.034. The reference range was not used to interpret this result as normal/abnormal. LAURIE (test code = LAURIE) Equal or Less than 0.034 ng/ml---Normal ?Note: Cardiac troponin begins to rise 3-4 hours after the onset of ischemia. Repeat in 4-6 hours if the sample was drawn within 3-4 hours of the onset of the symptom and found normal. Between 0.035 and 0.120 ng/mL--- Borderline. Questionable myocardial injury or necrosis ? ?Note: Serial measurement may be necessary to confirm or exclude the diagnosis of myocardial injury or necrosis; Clinical correlation (symptoms, EKGs, imaging studies, and others) required; Repeat in 4-6 hours if clinically indicated. ? Equal or Higher than 0.121 ng/mL---Abnormal. Myocardial Injury or Necrosis Likely ? Biotin has been reported to cause a negative bias, interpret results relative to patient's use of biotin. ? Lab Interpretation (test code = 27139-8) Normal [facility] AreaPROTHROMBIN TIME / ZBC5526-07-57 01:39:00* Test Item Value Reference Range Interpretation Comme [facility] PROTIME PATIENT (test code = 5964-2) See_Comment [Automated Cynnya ge] The system which generated this result transmitted reference range: 12.0 - 14.7 Seconds. The reference range was not used to interpret this result as normal/abnormal. INR (test code = 6301-6) Normal INR <1.1; Warfarin Therapeutic range 2.0 to 3.0 or 2.5 to 3.5, depending upon the indications. Lab Interpretation (test code = 78929-5) Normal [facility] Area[facility]OVID-19 (ID NOW RAPID TESTING)2020-07-10 01:36:00* Test Item Value Reference Range Interpretation Comme [facility] SARS-CoV-2 Rapid ID NOW (test code = 37608-8) Not Detected Not Detected LAURIE (test code = LAURIE) ID NOW COVID-19 As say is an isothermal nucleic acid amplification test intended for the qualitative detection of nucleic acid from SARS-CoV-2 viral RNA in nasopharyngeal (WATER PLUMBER) specimens. It is used under Emergency Use Authorization (EUA) by FDA. The limit of detection (LOD) of the assay is 125 Genome Equivalents/mL. A positive result is indicative of the presence of SARS-CoV-2 RNA. ?Clinical correlation with patient history and other diagnostic [...] for repeat patient testing if clinically indicated. Lab Interpretation (test code = 97735-4) Normal [facility] AreaCOMP. METABOLIC PANEL (90637)2020-07-10 01:29:00* Test Item Value Reference Range Interpretation Comme nts NA (test code = 4284647210) 136 mmol/L 135-145 K (test code = 2455262180) 3.4 mmol/L 3.5-5 L CL (test code = 7477306991) 98 mmol/L 98-108 CO2 TOTAL (test code = 0684652142) 26 mmol/L 23-31 AGAP (test code = 8531216673) 2-16 BUN (test code = 6292121907) 16 mg/dL 7-23 GLUCOSE (test code = 6832460623) 165 mg/dL 70-110 H CREATININE (test code = 4677158513) 0.94 mg/dL 0.6-1.25 TOTAL BILI (test code = 9069046109) 0.4 mg/dL 0.1-1.1 CALCIUM (test code = 0365177354) 9.7 mg/dL 8.6-10.6 T PROTEIN (test code = 5483888121) 8.2 g/dL 6.3-8.2 ALBUMIN (test code = 8401559346) 4.4 g/dL 3.5-5 ALK PHOS (test code = 4951177978) 77 U/L 34-122 ALTv (test code = 1742-6) 31 U/L 5-50 AST(SGOT) (test code = 5259579995) 26 U/L 13-40 eGFR Calculation (Non-) (test code = 9119017315) mL/min/1.73m2 eGFR Calculation () (test code = 9726333819) mL/min/1.73m2 LAURIE (test code = LAURIE) Association of Glomerular Filtration Rate (GFR) and Staging of Kidney Disease* + --+ --+ ------+| GFR (mL/min/1.73 m2) ?| With Kidney Damage ?| ?Without Kidney Damage+ --------+ --------+ +| ?>90 ?| ?Stage one ?| ? Normal ?+ ---+ ---+ -------+| ?60-89 ?| ?Stage two ?| ? Decreased GFR ? + --+ --+ ------+| ?30-59 ?| ?Stage three ?| ? Stage three ? + --+ --+ ------+| ?15-29 ?| ?Stage four ? | ? Stage four ?+ ---+ ---+ -------+| ?<15 (or dialysis) ? ?| ?Stage five ? | ? Stage five ?+ ---+ ---+ -------+ *Each stage assumes the associated GFR level has been in effect for at least three months. ?Stages 1 to 5, with or without kidney disease, indicate chronic kidney disease. Notes: Determination of stages one and two (with eGFR >59mL/min/1.73 m2) requires estimation of kidney damage for at least three months as defined by structural or functional abnormalities of the kidney, manifested by either:Pathological abnormalities or Markers of kidney damage (including abnormalities in the composition of the blood or urine or abnormalities in imaging tests). Lab Interpretation (test code = 36302-4) Abnormal [facility] WITH YHJP9126-02-84 01:11:00* Test Item Value Reference Range Interpretation Comme nts WBC (test code = 6690-2) See_Comment [[employer]] The system which generated this result transmitted reference range: 4.20 - 10.70 10*3/?L. The reference range was not used to interpret this result as normal/abnormal. RBC (test code = 789-8) See_Comment [[employer]] The system which generated this result transmitted reference range: 4.26 - 5.52 10*6/?L. The reference range was not used to interpret this result as normal/abnormal. HGB (test code = 718-7) 15.0 g/dL 12.2-16.4 HCT (test code = 4544-3) 44.1 % 38.4-49.3 MCV (test code = 787-2) 90.0 fL 81.7-95.6 MCH (test code = 785-6) 30.6 pg 26.1-32.7 MCHC (test code = 786-4) 34.0 g/dL 31.2-35 RDW-SD (test code = 44087-6) 42.6 fL 38.5-51.6 RDW-CV (test code = 788-0) 13.0 % 12.1-15.4 PLT (test code = 777-3) See_Comment [Automated Cynnya ge] The system which generated this result transmitted reference range: 150 - 328 10*3/?L. The reference range was not used to interpret this result as normal/abnormal. MPV (test code = 93603-2) 9.5 fL 9.8-13 L NRBC/100 WBC (test code = 4343632271) See_Comment [Automated [employer] ssage] The system which generated this result transmitted reference range: 0.0 - 10.0 /100 WBCs. The reference range was not used to interpret this result as normal/abnormal. NRBC x10^3 (test code = 3315474155) <0.01 See_Comment [Automated Cynnya ge] The system which generated this result transmitted reference range: 10*3/?L. The reference range was not used to interpret this result as normal/abnormal. GRAN MAT (NEUT) % (test code = 770-8) 65.5 % IMM GRAN % (test code = 8756862832) 0.70 % LYMPH % (test code = 736-9) 26.1 % MONO % (test code = 5905-5) 5.7 % EOS % (test code = 713-8) 1.2 % BASO % (test code = 706-2) 0.8 % GRAN MAT x10^3(ANC) (test code = 3345154280) 6.62 10*3/uL 1.99-6.95 IMM GRAN x10^3 (test code = 2114868130) 0.07 10*3/uL 0-0.06 H LYMPH x10^3 (test code = 731-0) 2.64 10*3/uL 1.09-3.23 MONO x10^3 (test code = 742-7) 0.58 10*3/uL 0.36-1.02 EOS x10^3 (test code = 711-2) 0.12 10*3/uL 0.06-0.53 BASO x10^3 (test code = 704-7) 0.08 10*3/uL 0.01-0.09 Lab Interpretation (test code = 48362-8) Abnormal [facility] Notes Date/Time Note Provider Source 2023-11-06 02:36:40 DjzNRxDqjSoRSvzarPcqttjZw1JT0P920wSnO wa/YH6yXGBen5bMp2ujNDzrYCvY3231-31-39 T02:36:40 Pt given printed and verbal discharge instructions regarding RLQ abdominal pain and encouraged hydration.Prescriptions providedPt verbalized understanding of instructions, pt awake alert oriented, resp reg unlabored, skin w/d, color appropriate for race, moves all ext well,pt encouraged to follow up with pcp.Advised to seek medical attention for new/prolonged/worsening of symptomsNo adverse reaction to meds given in ER noted upon dischargePIV d'cd, dressing to site, catheter in tact.Awake, alert oriented, resp reg unlabored, skin w/d, pt leaving amb with steady gait, in no apparent distress 90168-8Xklhnrlcc department DlkoSN3929-76-90S14:37:39Emergency department NoteTXT1.2.840.660518.1.13.104.2.7.2. 636934|[id number] for patient rvmc78320-4XxkxYAIZQLOQRHAAabwpglwn C-CDA narrative [id number] A Diaz RN[address] LggrBglsztrbpXmseduoxkSBOS4620593700C UJXJWBTVAAFKMJPQQYGPB1449-97-72K63:37 :391.2.840.449547.1.72.3.15|1.2.840.1 72354.1.13.104.2.7.2.727879_[id number] 8 Vira Huang RN [facility] 2023-11-05 23:47:32 GpE3WMiBlrYTTZeT247v8vGq6Qpf2CEfOqszf KOIupTk9CfXS3XxRPJTluKABsaC7894-81-43 T23:47:32 Patient ambulatory to ED c/o abd pain that started yesterday. Patient went to PCP today and patient states no prescriptions were given. 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 Last medication taken was Tylenol tonight.Patient is tearful in triage. 01957-4Lvemkfecr department Triage yzktOS0930-74-11N04:52:16[facility] Triage noteTXT1.2.840.062938.1.13.104.2.7.2. 922832|[id number] for patient uzfb50235-7Snxuljbsx department NoteLNNARRATIVEFormatted C-CDA narrative [id number]-Qdjsp McInnis RN[address] PrfrHllk[id number] CIZYOCMAWODATTZEKOAOP8320-09-18T77:52 :161.2.840.157740.1.72.3.15|1.2.840.1 87837.1.13.104.2.7.2.727879_[id number] 3 Sarina Graham RN [facility] 2023-11-01 04:18:58 zOckXFvgGg84fP+sHeKvrefi61MolvIYnundq kHqF5OIXW3/gr2L3aApZ4rDTziF5496-93-07 T04:18:58 Pt given printed and verbal discharge instructions regarding generalized abdominal painPrescriptions providedPt verbalized understanding of instructions, pt awake alert oriented, resp reg unlabored, skin w/d, color appropriate for race, moves all ext well,pt encouraged to follow up with pcpAdvised to seek medical attention for new/prolonged/worsening of symptomsNo adverse reaction to meds given in ER noted upon dischargePIV d'cd, dressing to site, catheter in tact.Awake, alert oriented, resp reg unlabored, skin w/d, pt leaving amb with steady gait, in no apparent distress 90175-2Bhswwpyie department GbgsEB2311-52-73O21:19:28[facility] NoteTXT1.2.840.639006.1.13.104.2.7.2. 817229|[id number] for patient wegz72371-2BtidVTQIZWHQSKGCzlqhegoe C-CDA narrative [id number] INFUSLASLAIYXETIVRJSI0750-83-59K63:19 :281.2.840.615081.1.72.3.15|1.2.840.1 37153.1.13.104.2.7.2.727879_[id number] 6 [facility] 2023-10-31 23:33:52 xMggO+hm9et4SVJepH2Xf9DK4N0e+ns0sIbn6 GwQ/cFGxXhWqA3IrNCcNI1UuqCc3258-48-25 T23:33:52 Pt arrived c/o RLQ/epigastric abdominal pain, vomiting, and headache. Pain began yesterday.PMH: Gallbladder removed 2/3 years ago 45002-7Kumpybpox department Triage iwqaYH7464-94-89S96:37:25[facility] Triage noteTXT1.2.840.808262.1.13.104.2.7.2. 716900|[id number] for patient pmta10943-9Jsunjbscn department NoteLNNARRATIVEFormatted C-CDA narrative [id number] XLQVETOYCFXBAFNAKSJFD7399-99-82Q98:37 :251.2.840.310287.1.72.3.15|1.2.840.1 47746.1.13.104.2.7.2.727879_[id number] 8 [facility] 2023-10-31 23:28:00 flkWHVqh7IwLhWlYOJvVWcafel0uAgxTXI7Xd /1yRzVoZNiAGJuo9JyW2nKswO5n6455-01-18 T23:28:00 [facility] Emergency Department NotePatient Name: Marysol Lazo of : 1975 48 year old maleTreatment Room: [facility]/[address] Record Number: [id number] Care Physician: PATIENT DOES NOT HAVE A PCPPatient Escorted by: Family [5]Mode of Arrival: Personal means [1]EMS Treatment Prior to ED Arrival: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 male NIDDM, now with severe RLQ abdominal and flank pain x 2 days. Patient denies fever/chills.Past Medical History/Immunizations:Past Medical History:Diagnosis DateHTN (hypertension)HypothyroidismTetanus received in last 5 years: NoAllergies:No Known AllergiesPast Social History:Tobacco UseEvery Day; 0.25 packs/day; Types: CigarettesSmokeless Tobacco: Never used smokeless tobacco.Alcohol UseYes.Comments: 6beers on the weekendDrug UseNever.Past Surgical History:Past Surgical History:Procedure Laterality DateLAPAROSCOPIC CHOLECYSTECTOMY N/A 08/29/2020Surgeon: Vaishali Vicente MD; [facility]OTHERTesticular surgeryTONGUE TO LIP SURGERYTONSILLECTOMYReview of Systems:Review of SystemsConstitutional: Negative for chills and fever.HENT: Negative.Eyes: Negative.Respiratory: Negative.Breasts: Negative.Cardiovascular: Negative.Gastrointestinal: Positive for abdominal pain and nausea. Negative for abdominal distention, rectal pain and vomiting.Genitourinary: Positive for flank pain.Neurological: Negative.Psychiatric/Behavioral: Negative.Endocrine: Endocrine negativePhysical Exam:ED Triage Vitals [10/31/23 2337]Weight 111.1 kg (245 lb)Actual or estimated Estimated by patient/family reportHeight 1.727 m (5' 8")BP (!) 158/94Pulse 91Resp 18Temp 37.1 ?C (98.7 ?F)Temp source OralSpO2 97 %Measured on Room airPhysical ExamVitals and nursing note reviewed.Constitutional:Appearance: Normal appearance.HENT:Head: Normocephalic.Mouth/Throat:Mouth: Mucous membranes are moist.Eyes:Pupils: Pupils are equal, round, and reactive to light.Cardiovascular:Rate and Rhythm: Normal rate.Pulses: Normal pulses.Pulmonary:Effort: Pulmonary effort is normal.Abdominal:Palpations: Abdomen is soft. There is no mass.Tenderness: There is abdominal tenderness. There is no right CVA tenderness, left CVA tenderness, guarding or rebound.Hernia: No hernia is present.Genitourinary:Penis: Normal.Testes: Normal.Comments: No obvious mass, no hernia sac, testicles-nl. Mckinney, nontenderMusculoskeletal:General: Normal range of motion.Skin:General: Skin is warm.Capillary Refill: Capillary refill takes less than 2 seconds.Neurological:General: No focal deficit present.Psychiatric:Mood and Affect: Mood normal.Radiology:CT ABDOMEN PELVIS W CONTRASTFinal ResultOrdering physician: JOSE FRANCISCO Cantrelldication: Acute generalized abdominal painCOMPARISON: CT of the abdomen and pelvis dated 10/23/2023TECHNIQUE: Axial images of the abdomen and pelvis are performed followingadministration of intravenous contrast material. Images were reformattedinthe coronal and sagittal plane. CT scan was performed according to ALARA(as low as reasonably achievable) policy.FINDINGS: The lung bases are clear. There is a small hiatal hernia. Thepatient is status post cholecystectomy. The liver, gallbladder, spleen,adrenal glands and pancreas are within normal limits. The kidneys arenormal in appearance bilaterally without hydronephrosis. No abdominalaortic aneurysm or dissection is appreciated.There is no free fluid in the pelvis. There is no bowel obstruction,widespread diverticulosis or acute diverticulitis. The appendix isidentified and within normal limits. Bone windows through the abdomen andpelvis demonstrate no osseous destructive lesion.IMPRESSIONNo acute process identified in the abdomen or pelvis.RL: 460AF: [id number] signed by Chantal Lee MD, PhD at 11/01/2023 3:00 AMLab Results:Lab ResultsCOMP. METABOLIC PANEL (65908) - AbnormalResult Value Ref RangeNA 138 135 - 145 mmol/LK 3.8 3.5 - 5.0 mmol/LCL 106 98 - 108 mmol/LCO2 TOTAL 21 (*) 23 - 31 mmol/LAGAP 11 2 - 16BUN 13 7 - 23 mg/dLGLUCOSE 113 (*) 70 - 110 mg/dLCREATININE 0.63 0.60 - 1.25 mg/dLTOTAL BILI 0.7 0.1 - 1.1 mg/dLCALCIUM 9.6 8.6 - 10.6 mg/David PROTEIN 9.0 (*) 6.3 - 8.2 g/dLALBUMIN 5.0 3.5 - 5.0 g/dLALK PHOS 73 34 - 122 U/LALTv 33 5 - 50 U/LAST(SGOT) 33 13 - 40 U/LeGFR 118.8 mL/min/1.53v1ZHY WITH DIFF - AbnormalWBC 11.54 (*) 4.20 - 10.70 10*3/?LRBC 5.24 4.26 - 5.52 10*6/?LHGB 16.2 12.2 - 16.4 g/dLHCT 47.8 38.4 - 49.3 %MCV 91.2 81.7 - 95.6 fLMCH 30.9 26.1 - 32.7 pgMCHC 33.9 31.2 - 35.0 g/dLRDW-SD 46.6 38.5 - 51.6 fLRDW-CV 14.0 12.1 - 15.4 %PLT 312 150 - 328 10*3/?LMPV 9.7 (*) 9.8 - 13.0 fLNRBC/100 WBC 0.0 0.0 - 10.0 /100 WBCsNRBC x10^3 <0.01 10*3/?LGRAN MAT (NEUT) % 54.9 %IMM GRAN % 0.30 %LYMPH % 36.0 %MONO % 6.3 %EOS % 1.6 %BASO % 0.9 %GRAN MAT x10^3(ANC) 6.35 1.99 - 6.95 10*3/uLIMM GRAN x10^3 0.03 0.00 - 0.06 10*3/uLLYMPH x10^3 4.15 (*) 1.09 - 3.23 10*3/uLMONO x10^3 0.73 0.36 - 1.02 10*3/uLEOS x10^3 0.18 0.06 - 0.53 10*3/uLBASO x10^3 0.10 (*) 0.01 - 0.09 10*3/uLURINALYSIS - AbnormalAPPEARANCE Clear ClearCOLOR Yellow YellowPH 6.0 4.8 - 8.0SP GRAVITY 1.026 1.003 - 1.030GLU U QUAL Normal NormalBLOOD Negative NegativeKETONES 5 mg/dL (*) NegativePROTEIN Negative NegativeUROBILIN Normal NormalBILIRUBIN Negative NegativeNITRITE Negative NegativeLEUK KENNY Negative NegativeRBC/HPF 3 0 - 3 HPFWBC/HPF 1 0 - 5 HPFBACTERIA Few (*) NegativeMUCOUS Slight (*) Negative LPFSQ EPITH <1 HPFPOCT GLUCOSE (AUTOMATED) - NormalPOCT GLU 110 70 - 110 mg/dLLIPASE - NormalLIPASE 89 0 - 220 U/LEKG:If EKG completed, see Procedure Note.Orders and Treatments:Orders Placed This EncounterProceduresCT ABDOMEN PELVIS W CONTRASTPOCT GLUCOSE (AUTOMATED)Complete Metabolic PanelCBC with DifferentialLipase, SerumUrinalysisOrders Placed This EncounterMedicationsNaCl 0.9% (NS) bolus infusion 1,000 mLketorolac (TORADOL) injection 30 mgmorpHINE (4 mg/mL) injection 4 mgondansetron (ZOFRAN (PF)) injection 4 mgmorpHINE (4 mg/mL) injection 4 mgiopamidol (ISOVUE 370-500 mL) injection 100 mLacetaminophen (TYLENOL) tablet 650 mgFirst Provider Eval:ED EventsNoneED COURSEDiagnosis/Impression as of 11/01/23 0332Generalized abdominal painProcedures:ProceduresMDM:Medical Decision MakingAmount and/or Complexity of Data ReviewedLabs: ordered.Radiology: ordered.RiskOTC drugs.Prescription drug management.Parenteral controlled substances.A) Abdominal Pain-chronic/intermittentDisposition/ Condition: Home, rest, hydration, ER warnings, f/u PCP in 1-2 days for re-evaluationED DispositionNoneDischarge Medications:Patient's MedicationsSTART taking these medicationsNo medications on fileCONTINUE taking these medications which have NOT CHANGEDBENZONATATE 200 MG CAPSULE Take 1 capsule by mouth 3 (three) times daily as needed for Cough for up to 20 doses.MRVPYGZLYF-UXETEHGFWITMW-KGMG 50-325-40 MG TABLET Take 1 tablet by mouth every 6 (six) hours as needed (Headache).ENALAPRIL 20 MG TABLET Take 25 mg by mouth daily.IBUPROFEN 600 MG TABLET Take 1 tablet by mouth every 6 (six) hours as needed for Pain (scale 4-6) for up to 30 doses.KETOROLAC 10 MG TABLET Take 1 tablet by mouth every 6 (six) hours as needed for Pain (scale 7-10).KETOROLAC 10 MG TABLET Take 1 tablet by mouth every 6 (six) hours as needed for Pain (scale 7-10).METFORMIN 500 MG TABLET Take 1 tablet by mouth 2 (two) times daily.METHOCARBAMOL 500 MG TABLET Take 1 tablet by mouth every 6 (six) hours as needed (MUSCLE SPASM).NAPROXEN (NAPROSYN) 500 MG TABLET Take 1 tablet by mouth 2 (two) times daily with meals.ONDANSETRON (ZOFRAN) 4 MG TABLET Take 1 tablet by mouth every 8 (eight) hours as needed for Nausea and Vomiting (N/V).ONDANSETRON 4 MG DISINTEGRATING TABLET Take 1 tablet by mouth every 4 (four) hours as needed for Nausea and Vomiting (N/V).ONDANSETRON 4 MG DISINTEGRATING TABLET Take 1 tablet by mouth every 8 (eight) hours as needed for Nausea and Vomiting (N/V).PANTOPRAZOLE 40 MG EC TABLET Take 1 tablet by mouth daily.SEMAGLUTIDE, WEIGHT LOSS, SC inject under the skin.SUCRALFATE 1 GRAM TABLET Take 1 tablet by mouth before meals and at bedtime.SULFAMETHOXAZOLE-TRIMETHOPRIM 800-160 MG PER TABLET Take 1 tablet by mouth every 12 (twelve) hours.TRAMADOL (ULTRAM) 50 MG TABLET Take 1 tablet by mouth every 6 (six) hours as needed for Pain (scale 4-6) or Pain (scale 7-10). Indications: acute painSTART taking Modified Medications as PrescribedNo medications on fileSTOP taking these medicationsNo medications on fileFollow-up:Electronically signed by:Jose Francisco Walters MD11/01/23 0332 95865-8Sjxihlhol Emergency department ScpgOI8950-07-91R06:32:28Physician Emergency department NoteTXT1.2.840.472214.1.13.104.2.7.2. 719204|[id number] for patient zjmo52898-2Tqxucptsc department NoteLNNARRATIVEFormatted C-CDA narrative text[address]Bv[id number] LPMOAKOTFUUPUNKFZILPD2974-97-98P92:32 :281.2.840.761430.1.72.3.15|1.2.840.1 42986.1.13.104.2.7.2.727879_[id number] 1 [facility] 2023-10-23 02:26:31 QmSjpG9F83J85mZHy+zTwIg9r57RhdHu9Vmd7 1sSzxAJNZ2SPV6iDaM1OO8morLK3015-97-04 T02:26:31 Pt given printed and verbal discharge instructions regarding abdominal, encouraged hydration.Prescriptions providedDiscussed ibuprofen and to take with food to avoid GI distress.Pt verbalized understanding of instructions, pt awake alert oriented, resp reg unlabored, skin w/d, color appropriate for race, moves all ext well,pt encouraged to follow up with GI.Advised to seek medical attention for new/prolonged/worsening of symptoms.No adverse reaction to meds given in ER noted upon discharge.PIV d'cd, dressing to site, catheter in tact.Awake, alert oriented, resp reg unlabored, skin w/d, pt leaving amb with steady gait, in no apparent distress. 68121-3Nrbitkftm department BiulUK8303-05-95H04:31:16[facility] NoteTXT1.2.840.600329.1.13.104.2.7.2. 135285|[id number] for patient wbuy43080-9NvhrYHSEQVUXAOBMbfmcrjbf C-CDA narrative [id number] D Roman RN[address] Op[id number] JYPSMEHNBQPOUHYFHOLIB2436-39-82F97:31 :161.2.840.429717.1.72.3.15|1.2.840.1 71678.1.13.104.2.7.2.727879_[id number] 9 More Zamudio RN [facility] 2023-10-22 23:44:24 gso4k8azDaFbJTcXXvIHvp0GMmrNYYpz3HZCZ TVlgK2R1E7XTMSpGuLxeyLsmmQj1658-78-03 T23:44:24 CC: Pt reports RLQ abd pain and 2 episodes of vomiting since morning. Pt has BM this morning was normal.PMHx: HTN, PL1Zcllh, alert, oriented, resp reg unlabored, skin warm, color appropriate for race, moves all ext without difficulty, amb with steady gait 20435-2Zxslqjrxr department Triage toenRZ6544-19-68E43:45:27[facility] Triage noteTXT1.2.840.512170.1.13.104.2.7.2. 920692|[id number] for patient apic14781-4Uufdnifej department NoteLNNARRATIVEFormatted C-CDA narrative text[address] La[id number] PSFSMLUEQMRVGEHNEAOJL5930-50-65B03:45 :271.2.840.024352.1.72.3.15|1.2.840.1 [id number] 5 [facility] 2023-10-22 23:33:00 1daN3v5BtToW7tzCydJdnICZHx7qzjsrOJAha yy4dGGsDshtmjQUPNedSFnvHFp88200-46-28 T23:33:00 [facility] Emergency Department NotePatient Name: Marysol Lazo of : 1975 48 year old maleTreatment Room: [facility]MI5Rkytvmo Record Number: [id number] Care Physician: PATIENT DOES NOT HAVE A PCPPatient Escorted by: Family [5]Mode of Arrival: Personal means [1]EMS Treatment Prior to ED 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: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 treatment: Medication (comment)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 treatment comments: 2 tylenol 2 hrs agoTravel and Exposure Screening:SymptomsDoes patient have any of these symptoms?: (not recorded)Exposure ScreeningHas patient had contact with someone with a communicable disease in the last month?: (not recorded)Diseases exposed to:: (not recorded)Is Patient ?: (not recorded)Exposure Date: (not recorded)Chief Complaint:Chief ComplaintPatient presents withAbdominal PainHistory of Present Illness:Marysol Dumont is a 48 year old male who presents to the ED for evaluation of RLQ that began this morning/ Pt rates pain as10/10. Also reports subjective fever. Also has dysuria and hematuria. Pt took Tylenol about noon without relief. 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 used: NoAbdominal PainPain location: RLQPain quality: sharpPain radiates to: Does not radiatePain severity: SevereOnset quality: GradualDuration: 1 dayTiming: SporadicChronicity: RecurrentContext: not alcohol use, not awakening from sleep, not diet changes, not eating, not laxative use, not medication withdrawal, not previous surgeries, not recent illness, not recent travel, not retching, not sick contacts, not suspicious food intake and not traumaRelieved by: NothingWorsened by: NothingIneffective treatments: None triedAssociated symptoms: no anorexia, no belching, no chest pain, no chills, no constipation, no cough, no diarrhea, no dysuria, no fatigue, no fever, no flatus, no hematemesis, no hematochezia, no hematuria, no melena, no nausea, no shortness of breath, no sore throat and no vomitingRisk factors: obesityRisk factors: no alcohol abuse, has not had multiple surgeries, no NSAID use and no recent hospitalizationPast Medical History/Immunizations:Past Medical History:Diagnosis DateHTN (hypertension)HypothyroidismTetanus received in last 5 years: NoAllergies:No Known AllergiesPast Social History:Tobacco UseEvery Day; 0.25 packs/day; Types: CigarettesSmokeless Tobacco: Never used smokeless tobacco.Alcohol UseYes.Comments: 6beers on the weekendDrug UseNever.Past Surgical History:Past Surgical History:Procedure Laterality DateLAPAROSCOPIC CHOLECYSTECTOMY N/A 08/29/2020Surgeon: Vaishali Vicente MD; [facility]Testicular surgeryTONGUE TO LIP SURGERYTONSILLECTOMYReview of Systems:Review of SystemsConstitutional: Negative. Negative for chills, fatigue and fever.HENT: Negative. Negative for sore throat.Eyes: Negative.Respiratory: Negative. Negative for cough and shortness of breath.Breasts: Negative.Cardiovascular: Negative. Negative for chest pain.Gastrointestinal: Positive for abdominal pain. Negative for abdominal distention, anal bleeding, anorexia, blood in stool, constipation, diarrhea, flatus, hematemesis, hematochezia, melena, nausea, rectal pain and vomiting.Genitourinary: Negative. Negative for dysuria and hematuria.Musculoskeletal: Negative.Skin: Negative.Neurological: Negative.Psychiatric/Behavioral: Negative.All other systems reviewed and are negative.Endocrine: Endocrine negativePhysical Exam:ED Triage Vitals [10/22/23 2345]Weight 113.4 kg (250 lb)Actual or estimated Estimated by patient/family reportHeight 1.727 m (5' 8")BP (!) 155/103Pulse 93Resp 20Temp 36.7 ?C (98.1 ?F)Temp source OralSpO2 96 %Measured on Room airPhysical ExamVitals and nursing note reviewed.Constitutional:General: He is not in acute distress.Appearance: Normal appearance. He is well-developed. He is obese. He is not ill-appearing, toxic-appearing or diaphoretic.HENT:Head: Normocephalic and atraumatic.Nose: Nose normal. No congestion or rhinorrhea.Mouth/Throat:Mouth: Mucous membranes are moist.Pharynx: Oropharynx is clear.Eyes:General: No scleral icterus.Right eye: No discharge.Left eye: No discharge.Extraocular Movements: Extraocular movements intact.Conjunctiva/sclera: Conjunctivae normal.Pupils: Pupils are equal, round, and reactive to light.Cardiovascular:Rate and Rhythm: Normal rate and regular rhythm.Pulses: Normal pulses.Heart sounds: Normal heart sounds. No murmur heard.Pulmonary:Effort: Pulmonary effort is normal. No respiratory distress.Breath sounds: Normal breath sounds. No stridor. No wheezing, rhonchi or rales.Chest:Chest wall: No tenderness.Abdominal:General: Bowel sounds are normal. There is no distension.Palpations: Abdomen is soft. There is no mass.Tenderness: There is no abdominal tenderness. There is no right CVA tenderness, left CVA tenderness, guarding or rebound.Hernia: No hernia is present.Musculoskeletal:General: No swelling, tenderness, deformity or signs of injury. Normal range of motion.Cervical back: Normal range of motion and neck supple. No rigidity or tenderness.Right lower leg: No edema.Left lower leg: No edema.Lymphadenopathy:Cervical: No cervical adenopathy.Skin:General: Skin is warm and dry.Capillary Refill: Capillary refill takes less than 2 seconds.Coloration: Skin is not jaundiced or pale.Findings: No bruising, erythema, lesion or rash.Neurological:General: No focal deficit present.Mental Status: He is alert and oriented to person, place, and time.Cranial Nerves: No cranial nerve deficit.Sensory: No sensory deficit.Motor: No weakness.Coordination: Coordination normal.Gait: Gait normal.Deep Tendon Reflexes: Reflexes normal.Psychiatric:Behavior: Behavior normal.Thought Content: Thought content normal.Judgment: Judgment normal.Radiology:CT ABDOMEN PELVIS W CONTRASTFinal ResultOrdering physician: CHAPITO CONTRERASIndication: Acute right lower quadrant abdominal painCOMPARISON: CT of the abdomen and pelvis dated 09/26/2023TECHNIQUE: Axial images of the abdomen and pelvis are performed followingadministration of intravenous contrast material. Images were reformattedinthe coronal and sagittal plane. CT scan was performed according to ALARA(as low as reasonably achievable) policy.FINDINGS: The lung bases are clear. The patient is status postcholecystectomy. The liver, spleen, adrenal glands and pancreas are withinnormal limits. The kidneys are normal in appearance bilaterally withouthydronephrosis. No abdominal aortic aneurysm or dissection is appreciated.There is no free fluid in the pelvis. There is no bowel obstruction,widespread diverticulosis or acute diverticulitis. The appendix isidentified and within normal limits. Bone windows through the abdomen andpelvis demonstrate no osseous destructive lesion. 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 METABOLIC PANEL (47211) - AbnormalResult Value Ref RangeNA 140 135 - 145 mmol/LK 3.7 3.5 - 5.0 mmol/LCL 105 98 - 108 mmol/LCO2 TOTAL 23 23 - 31 mmol/LAGAP 12 2 - 16BUN 15 7 - 23 mg/dLGLUCOSE 126 (*) 70 - 110 mg/dLCREATININE 0.89 0.60 - 1.25 mg/dLTOTAL BILI 0.6 0.1 - 1.1 mg/dLCALCIUM 9.5 8.6 - 10.6 mg/David PROTEIN 8.6 (*) 6.3 - 8.2 g/dLALBUMIN 4.7 3.5 - 5.0 g/dLALK PHOS 84 34 - 122 U/LALTv 38 5 - 50 U/LAST(SGOT) 33 13 - 40 U/LeGFR 107.0 mL/min/1.43e9LGP WITH DIFF - AbnormalWBC 11.85 (*) 4.20 - 10.70 10*3/?LRBC 5.23 4.26 - 5.52 10*6/?LHGB 16.1 12.2 - 16.4 g/dLHCT 47.5 38.4 - 49.3 %MCV 90.8 81.7 - 95.6 fLMCH 30.8 26.1 - 32.7 pgMCHC 33.9 31.2 - 35.0 g/dLRDW-SD 45.0 38.5 - 51.6 fLRDW-CV 13.6 12.1 - 15.4 %PLT 307 150 - 328 10*3/?LMPV 9.3 (*) 9.8 - 13.0 fLNRBC/100 WBC 0.0 0.0 - 10.0 /100 WBCsNRBC x10^3 <0.01 10*3/?LSEG % 49 33 - 76 %LYMPH % 40 14 - 54 %MONO % 4 0 - 4 %EOS % 7 (*) 0 - 3 %ANC 5.81 1.99 - 6.95 10*3/uLURINALYSIS - AbnormalAPPEARANCE Clear ClearCOLOR Yellow YellowPH 6.0 4.8 - 8.0SP GRAVITY 1.026 1.003 - 1.030GLU U QUAL Normal NormalBLOOD Negative NegativeKETONES Negative NegativePROTEIN Negative NegativeUROBILIN 2.0 mg/dL (*) NormalBILIRUBIN Negative NegativeNITRITE Negative NegativeLEUK KENNY Negative NegativeRBC/HPF 0 0 - 3 HPFWBC/HPF 0 0 - 5 HPFBACTERIA Negative NegativeMUCOUS Slight (*) Negative LPFSQ EPITH 1 HPFLIPASE - NormalLIPASE 80 0 - 220 U/LOrders and Treatments:Orders Placed This EncounterProceduresCT ABDOMEN PELVIS W CONTRASTComplete Metabolic PanelCBC with DifferentialLipase, SerumUrinalysisOrders Placed This EncounterMedicationsketorolac (TORADOL) injection 30 mgondansetron (ZOFRAN (PF)) injection 4 mgFENTanyl PF (SUBLIMAZE (PF)) injection 50 mcgiopamidol (ISOVUE 370-500 mL) injection 100 mLketorolac 10 mg tabletFirst Provider Eval:ED EventsDate/Time Event User Iqhjteoz73/04/24 0679 Medical Screening Begins CHAPITO CONTRERAS MD --10/23/23 7627 First Provider Evaluation CHAPITO CONTRERAS MD --ED COURSEProcedures:ProceduresMDM:Medica l Decision MakingJose Tyler Dumont is a 48 year old male who presents to the ED with RLQ pain X 1 dayAmount and/or Complexity of Data ReviewedExternal Data Reviewed: radiology and notes.Labs: ordered. Decision-making details documented in ED Course.Radiology: ordered. Decision-making details documented in ED Course.RiskPrescription drug management.Parenteral controlled substances.Risk Details: Will refer to GI Johnathon Documentation:Scoring Tools:No data recordedDisposition/Condition:ED DispositionED DispositionDisch - HomeConditionStableComment--Discharge Medications:Patient's MedicationsSTART taking these medicationsKETOROLAC 10 MG TABLET Take 1 tablet by mouth every 6 (six) hours as needed for Pain (scale 7-10).CONTINUE taking these medications which have NOT CHANGEDBENZONATATE 200 MG CAPSULE Take 1 capsule by mouth 3 (three) times daily as needed for Cough for up to 20 doses.LYTBXVFNFA-AJLOJTZVWMRTS-OLWX 50-325-40 MG TABLET Take 1 tablet by mouth every 6 (six) hours as needed (Headache).ENALAPRIL 20 MG TABLET Take 25 mg by mouth daily.IBUPROFEN 600 MG TABLET Take 1 tablet by mouth every 6 (six) hours as needed for Pain (scale 4-6) for up to 30 doses.KETOROLAC 10 MG TABLET Take 1 tablet by mouth every 6 (six) hours as needed for Pain (scale 7-10).METFORMIN 500 MG TABLET Take 1 tablet by mouth 2 (two) times daily.METHOCARBAMOL 500 MG TABLET Take 1 tablet by mouth every 6 (six) hours as needed (MUSCLE SPASM).NAPROXEN (NAPROSYN) 500 MG TABLET Take 1 tablet by mouth 2 (two) times daily with meals.ONDANSETRON (ZOFRAN) 4 MG TABLET Take 1 tablet by mouth every 8 (eight) hours as needed for Nausea and Vomiting (N/V).ONDANSETRON 4 MG DISINTEGRATING TABLET Take 1 tablet by mouth every 4 (four) hours as needed for Nausea and Vomiting (N/V).ONDANSETRON 4 MG DISINTEGRATING TABLET Take 1 tablet by mouth every 8 (eight) hours as needed for Nausea and Vomiting (N/V).PANTOPRAZOLE 40 MG EC TABLET Take 1 tablet by mouth daily.SEMAGLUTIDE, WEIGHT LOSS, SC inject under the skin.SUCRALFATE 1 GRAM TABLET Take 1 tablet by mouth before meals and at bedtime.SULFAMETHOXAZOLE-TRIMETHOPRIM 800-160 MG PER TABLET Take 1 tablet by mouth every 12 (twelve) hours.TRAMADOL (ULTRAM) 50 MG TABLET Take 1 tablet by mouth every 6 (six) hours as needed for Pain (scale 4-6) or Pain (scale 7-10). Indications: acute painSTART taking Modified Medications as PrescribedNo medications on fileSTOP taking these medicationsNo medications on fileFollow-up:Contact information for follow-upOmaira Chen MDSpecialty: IM-VTRNCGSWEHRCINBH[address] [place] [id number]: [phone] signed by:Chapito Contreras MD10/23/23219 42654-6Vnsouxprb Emergency department GmxbEO5788-28-08P47:20:23Physician Emergency department NoteTXT1.2.840.550586.1.13.104.2.7.2. 575137|[id number] for patient xolz76089-6Stmtusjoy department NoteLNNARRATIVEFormatted C-CDA narrative textUT[address] Wc[id number] EMSJEEAOVQOKHIGQDEECA2692-16-01K48:20 :231.2.840.384969.1.72.3.15|1.2.840.1 53827.1.13.104.2.7.2.727879_[id number] 7 [facility] 2023-07-07 05:55:19 04pm+dWNh/5UK//S3uLfG8BhN7h+H2YbMflWQ e82nKz6n2LcOKOIf0RUx3YbmF2K5873-88-70 T05:55:19 Awake, alert oriented X4, respiratory even and unlabored,skin w/d color appropriate for race, moves all ext well, pt encouraged to follow up with pcp and or return as neededPt given printed and verbal discharge instructions regarding Nonintractable headache, Uncontrolled hypertension , patient verbralized understanding and signature obtained, patient denies any other concerns. Prescriptions providedAdvised to seek medical attention for new/prolonged/worsening of symptoms, No adverse reaction to meds given in ER noted upon dischargePt [facility] 41719-4Oyvoqgjkv department TtwrOG9926-78-27N19:56:11[facility] NoteTXT1.2.840.245126.1.13.104.2.7.2. 661054|[id number] for patient zlxo98769-0LukbBJHSMVLJBO[address] Dl[id number] BBCSIIPERMWNPLGSNCZRH8389-86-58N29:56 :111.2.840.299504.1.72.3.15|1.2.840.1 42361.1.13.104.2.7.2.727879_[id number] 5 [facility] 2023-07-07 03:54:59 vYharGH2YffL/Zcm9/1+OO7olmD09LvlJp62f VaqCOByOCYJIwR/OROWEM0O6+F/2023-07-07 T03:54:59 Pt states that he last night his blood pressure was running high and he has headache. 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 Pt state that he took his enalapril around 2300 last night. 83612-7Upqpvzllr department Triage bwlwMK7338-21-01E67:57:11[facility] Triage noteTXT1.2.840.449009.1.13.104.2.7.2. 011344|[id number] for patient qvwa97946-1Rmohdmsmg department NoteLNUT[address] Gg[id number] PCOQNVHDMQPWYDFCBVGAB8338-24-57W82:57 :111.2.840.637087.1.72.3.15|1.2.840.1 03585.1.13.104.2.7.2.727879_[id number] 6 [facility] 2023-07-07 03:49:00 EuWq08ybIqIrM6RiELB60mtZriFco7hlFYqmB uLtY/k+gCabAubYapC6OtY92S2w6979-63-63 T03:49:00 [facility] Emergency Department NotePatient Name: Marysol Lazo of : 1975 47 year old maleTreatment Room: [place] [id number] Record Number: [id number] Care Physician: PATIENT DOES NOT HAVE A PCPPatient Escorted by: Self [9]Mode of Arrival: Personal means [1]EMS Treatment Prior to ED 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 Pt has had a generalized headache that began about 10 PM and is rated as severe. Pt did not take any rx for the MONTOYA but took took his Enalapril 20 mg prior to arrival in the ED. No N/V. No focal weakness. No neck pain or stiffness. No rash. 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 used: No HypertensionSeverity: ModerateOnset quality: SuddenDuration: 2 hoursTiming: SporadicChronicity: ChronicTime since last dose of antihypertensive: 2 hoursNotable 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 blood pressures: 198/112Context: normal sodium, not caffeine, not drug abuse, not herbal remedies, not medication change, not noncompliance, not OTC medications used and not stress Worsened by: NothingAssociated symptoms: headaches Associated symptoms: no abdominal pain, no anxiety, no blurred vision, no chest pain, no confusion, no dizziness, no ear pain, no epistaxis, no fatigue, no fever, no hematuria, no hypokalemia, no loss of consciousness, no nausea, no neck pain, no palpitations, no peripheral edema, no shortness of breath, no syncope, no tinnitus, not vomiting and no weakness Risk factors: obesity Risk factors: no prior aneurysm, no prior stroke, no PVD and no tobacco use Past Medical History/Immunizations:Past Medical History: Diagnosis Date HTN (hypertension) Hypothyroidism DMT2 AIMEE ObesityTetanus received in last 5 years: NoChildhood immunizations: Up-to-date Allergies:No Known AllergiesPast Social History:Tobacco Use Every Day; 0.25 packs/day; Types: Cigarettes Smokeless Tobacco: Never used smokeless tobacco. Alcohol Use Yes. Comments: 6beers on the weekend Drug Use Never. Past Surgical History:Past Surgical History: Procedure Laterality Date LAPAROSCOPIC CHOLECYSTECTOMY N/A 08/29/2020 Surgeon: Vaishali Vicente MD; Location: [facility] OR Location OTHER Testicular surgery TONGUE TO LIP SURGERY TONSILLECTOMY Review of Systems: Review of Systems Constitutional: Negative. Negative for appetite change, chills, diaphoresis, fatigue, fever and unexpected weight change. HENT: Negative. Negative for congestion, ear pain, facial swelling, nosebleeds and tinnitus. Eyes: Negative. Negative for blurred vision. Respiratory: Negative. Negative for cough, choking, chest tightness, shortness of breath and wheezing. Breasts: Negative. Cardiovascular: Negative. Negative for chest pain, palpitations, leg swelling and syncope. Gastrointestinal: Negative. Negative for abdominal pain, nausea and vomiting. Genitourinary: Negative. Negative for hematuria. Musculoskeletal: Negative. Negative for neck pain and neck stiffness. Skin: Negative. Neurological: Positive for headaches. Negative for dizziness, tremors, seizures, loss of consciousness, syncope, facial asymmetry, speech difficulty, weakness, light-headedness and numbness. Psychiatric/Behavioral: Negative. Negative for confusion. The patient is not nervous/anxious. All other systems reviewed and are negative.Endocrine: Endocrine negativePhysical Exam: ED Triage Vitals [07/07/23 0357] Weight 113.4 kg (250 lb) Actual or estimated Height 1.727 m (5' 8") BP (!) 160/94 Pulse 85 Resp 18 Temp 36.4 ?C (97.6 ?F) Temp source Oral SpO2 95 % Measured on Room air Physical ExamVitals and nursing note reviewed. Constitutional: General: He is not in acute distress. Appearance: Normal appearance. He is well-developed. He is obese. He is not ill-appearing, toxic-appearing or diaphoretic. HENT: Head: Normocephalic and atraumatic. Nose: Nose normal. No congestion or rhinorrhea. Mouth/Throat: Mouth: Mucous membranes are moist. Pharynx: No oropharyngeal exudate or posterior oropharyngeal erythema. Eyes: General: Right eye: No discharge. Left eye: No discharge. Extraocular Movements: Extraocular movements intact. Conjunctiva/sclera: Conjunctivae normal. Pupils: Pupils are equal, round, and reactive to light. Cardiovascular: Rate and Rhythm: Normal rate and regular rhythm. Pulses: Normal pulses. Heart sounds: Normal heart sounds. No murmur heard.Pulmonary: Effort: Pulmonary effort is normal. No respiratory distress. Breath sounds: Normal breath sounds. No stridor. No wheezing, rhonchi or rales. Chest: Chest wall: No tenderness. Abdominal: General: Bowel sounds are normal. There is no distension. Palpations: Abdomen is soft. Tenderness: There is no abdominal tenderness. There is no right CVA tenderness, left CVA tenderness, guarding or rebound. Hernia: No hernia is present. Musculoskeletal: General: No swelling, tenderness, deformity or signs of injury. Normal range of motion. Cervical back: Normal range of motion and neck supple. No rigidity or tenderness. Lymphadenopathy: Cervical: No cervical adenopathy. Skin: General: Skin is warm and dry. Capillary Refill: Capillary refill takes less than 2 seconds. Coloration: Skin is not jaundiced or pale. Findings: No bruising, erythema, lesion or rash. Neurological: General: No focal deficit present. Mental Status: He is alert and oriented to person, place, and time. Mental status is at baseline. Cranial Nerves: No cranial nerve deficit. Sensory: No sensory deficit. Motor: No weakness. Coordination: Coordination normal. Deep Tendon Reflexes: Reflexes normal. Psychiatric: Behavior: Behavior normal. Thought Content: Thought content normal. Judgment: Judgment normal. Radiology:No orders to display Lab Results:Lab Results COMP. METABOLIC PANEL (80282) - Abnormal Result Value Ref Range NA 138 135 - 145 mmol/L K 4.0 3.5 - 5.0 mmol/L CL 105 98 - 108 mmol/L CO2 TOTAL 22 (*) 23 - 31 mmol/L AGAP 11 2 - 16 BUN 11 7 - 23 mg/dL GLUCOSE 115 (*) 70 - 110 mg/dL CREATININE 0.61 0.60 - 1.25 mg/dL TOTAL BILI 0.2 0.1 - 1.1 mg/dL CALCIUM 8.8 8.6 - 10.6 mg/dL T PROTEIN 7.7 6.3 - 8.2 g/dL ALBUMIN 4.2 3.5 - 5.0 g/dL ALK PHOS 92 34 - 122 U/L ALTv 44 5 - 50 U/L AST(SGOT) 36 13 - 40 U/L eGFR 142.9 mL/min/1.73m2 CBC WITH DIFF - Abnormal WBC 11.51 (*) 4.20 - 10.70 10*3/?L RBC 4.91 4.26 - 5.52 10*6/?L HGB 15.0 12.2 - 16.4 g/dL HCT 44.8 38.4 - 49.3 % MCV 91.2 81.7 - 95.6 fL MCH 30.5 26.1 - 32.7 pg MCHC 33.5 31.2 - 35.0 g/dL RDW-SD 44.0 38.5 - 51.6 fL RDW-CV 13.2 12.1 - 15.4 % PLT 292 150 - 328 10*3/?L MPV 9.8 9.8 - 13.0 fL NRBC/100 WBC 0.0 0.0 - 10.0 /100 WBCs NRBC x10^3 <0.01 10*3/?L GRAN MAT (NEUT) % 52.5 % IMM GRAN % 0.60 % LYMPH % 35.9 % MONO % 7.3 % EOS % 2.7 % BASO % 1.0 % GRAN MAT x10^3(ANC) 6.05 1.99 - 6.95 10*3/uL IMM GRAN x10^3 0.07 (*) 0.00 - 0.06 10*3/uL LYMPH x10^3 4.13 (*) 1.09 - 3.23 10*3/uL MONO x10^3 0.84 0.36 - 1.02 10*3/uL EOS x10^3 0.31 0.06 - 0.53 10*3/uL BASO x10^3 0.11 (*) 0.01 - 0.09 10*3/uL URINALYSIS - Abnormal APPEARANCE Clear Clear COLOR Yellow Yellow PH 5.0 4.8 - 8.0 SP GRAVITY 1.021 1.003 - 1.030 GLU U QUAL Normal Normal BLOOD Negative Negative KETONES 5 mg/dL (*) Negative PROTEIN Negative Negative UROBILIN Normal Normal BILIRUBIN Negative Negative NITRITE Negative Negative LEUK KENNY Negative Negative RBC/HPF 2 0 - 3 HPF WBC/HPF <1 0 - 5 HPF BACTERIA Few (*) Negative MUCOUS Slight (*) Negative LPF SQ EPITH <1 HPF TROPONIN I - Normal TROPONIN I 0.003 <=0.034 ng/mL LIPASE - Normal LIPASE 70 0 - 220 U/L Orders and Treatments:Orders Placed This Encounter Procedures TROPONIN I COMP. METABOLIC PANEL (46371) LIPASE, SERUM CBC WITH DIFF URINALYSIS Orders Placed This Encounter Medications ketorolac (TORADOL) injection 30 mg metoclopramide HCl (REGLAN) injection 10 mg jfnvuffbie-yzwzemvjpydaq-ttck 50-325-40 mg tablet First Provider Eval:ED Events Date/Time Event User Comments 07/07/23399 Medical Screening Begins CHAPITO CONTRERAS MD -- 07/07/23399 First Provider Evaluation CHAPITO CONTRERAS MD -- No notes of EC Admission Criteria type on file.ED COURSEDiagnosis/Impression as of 07/07/23 0553 Nonintractable headache, unspecified chronicity pattern, unspecified headache type Uncontrolled hypertension Procedures: ProceduresMDM:Medical Decision MakingJose Tyler Dumont is a 47 year old male who presents to the ED with headache and elevated blood pressure readingProblems Addressed:Nonintractable headache, unspecified chronicity pattern, unspecified headache type: acute illness or injury Details: ResolvedUncontrolled hypertension: chronic illness or injury Details: Improved in EDAmount and/or Complexity of Data ReviewedLabs: ordered. Decision-making details documented in ED Course.RiskOTC drugs.Prescription drug management. Flowsheet Documentation: Scoring Tools: No data recorded Disposition/Condition:ED Disposition ED Disposition Disch - Home Condition Stable Comment -- Discharge Medications:Patient's Medications START taking these medications AMPJWAVLPS-CVCYMOVZKJNIH-QWLO 50-325-40 MG TABLET Take 1 tablet by mouth every 6 (six) hours as needed (Headache). CONTINUE taking these medications which have NOT CHANGED BENZONATATE 200 MG CAPSULE Take 1 capsule by mouth 3 (three) times daily as needed for Cough for up to 20 doses. ENALAPRIL 20 MG TABLET Take 25 mg by mouth daily. IBUPROFEN 600 MG TABLET Take 1 tablet by mouth every 6 (six) hours as needed for Pain (scale 4-6) for up to 30 doses. KETOROLAC 10 MG TABLET Take 1 tablet by mouth every 6 (six) hours as needed for Pain (scale 7-10). METFORMIN 500 MG TABLET Take 1 tablet by mouth 2 (two) times daily. METHOCARBAMOL 500 MG TABLET Take 1 tablet by mouth every 6 (six) hours as needed (MUSCLE SPASM). NAPROXEN (NAPROSYN) 500 MG TABLET Take 1 tablet by mouth 2 (two) times daily with meals. ONDANSETRON (ZOFRAN) 4 MG TABLET Take 1 tablet by mouth every 8 (eight) hours as needed for Nausea and Vomiting (N/V). ONDANSETRON 4 MG DISINTEGRATING TABLET Take 1 tablet by mouth every 4 (four) hours as needed for Nausea and Vomiting (N/V). ONDANSETRON 4 MG DISINTEGRATING TABLET Take 1 tablet by mouth every 8 (eight) hours as needed for Nausea and Vomiting (N/V). PANTOPRAZOLE 40 MG EC TABLET Take 1 tablet by mouth daily. SUCRALFATE 1 GRAM TABLET Take 1 tablet by mouth before meals and at bedtime. SULFAMETHOXAZOLE-TRIMETHOPRIM 800-160 MG PER TABLET Take 1 tablet by mouth every 12 (twelve) hours. TRAMADOL (ULTRAM) 50 MG TABLET Take 1 tablet by mouth every 6 (six) hours as needed for Pain (scale 4-6) or Pain (scale 7-10). Indications: acute pain START taking Modified Medications as Prescribed No medications on file STOP taking these medications No medications on file Follow-up:Contact information for follow-up Ulises Carter MD Specialty: PN-NEUROLOGY [facility] AND [address] [id number] Electronically signed by: Chapito Contreras MD07/07/23 0553 [id number] Emergency department VgyzVA3220-03-63N22:53:28Physician Emergency department [id number]. [id number] for patient cmsv80869-7Yafohylvg department NoteLNUT[address]Bt[id number] GHEWEOZAEYGDQUUQVIFVH3798-81-75S36:53 :[id number]|1.2.840.1 [id number] 1 [facility] 2023-05-25 22:36:27 jZArnWSyB+v1yI6iXhsnluVPHNayZWhqFdqVQ s1UXTofCrrdj0+sum8U7TgbMbrT7700-97-65 T22:36:27 Pt given printed and verbal discharge instructions regarding T2DM, chest pain. Generalized abdominal pain, and acute nonintracable headache. Prescriptions providedDiscussed ibuprofen and to take with food to avoid GI distress.Pt verbalized understanding of instructions, pt awake alert oriented, resp reg unlabored, skin w/d, color appropriate for race, moves all ext well,pt encouraged to follow up with pcpAdvised to seek medical attention for new/prolonged/worsening of symptomsNo adverse reaction to meds given in ER noted upon dischargePIV d'cd, dressing to site, catheter in tact.Awake, alert oriented, resp reg unlabored, skin w/d, pt leaving amb with steady gait, in no apparent distress 22370-5Ugaywhsnr department LdlzUI0802-00-90U84:37:47[facility] [id number]. 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 33652-9Gwfcogbbw department Triage iaktMJ5410-57-93C42:20:33[facility] department Triage [id number]. [id number] for patient mgok22659-6Ltkucqiqt department [id number] L Barker RN[id number] DSBOXOBOEKETEIPQHWYGP7992-21-77G89:20 :[id number]|1.2.840.1 [id number] 0 Shalini Nair RN [facility]
[2023-11-14] MEDS ORDERED: ONDANSETRON 4 MG/2 ML VIAL ONE (23:27)
[2023-11-14] MEDS ORDERED: MORPHINE 4 MG/ML SYR ONE (23:28)
[2023-11-14] MEDS ORDERED: NA CHLORIDE 0.9% 1,000 ML ONE (23:28)
[2023-11-14 23:54] LABS: Absolute Lymphocytes (CBC) 3.4 K/uL (0.7-4.9); Hematocrit 48.7 % (39.6-49.0); Lymphocytes % 28.7 % (15.3-44.8); MPV 7.8 fL (7.6-11.3); Platelets 338 thou/uL (152-406); RBC Red Blood Cell Count 5.35 M/uL (4.33-5.43)
[2023-11-15 00:01] LABS: Protime INR 0.96
[2023-11-15 00:20] LABS: Albumin 3.8 g/dL (3.4-5.0); Bilirubin Direct 0.1 mg/dL (0-0.2); Bilirubin Indirect, Calculated 0.3 mg/dL (0.2-0.8); Bilirubin Total 0.4 mg/dL (0.2-1.0); Magnesium 2.3 mg/dL (1.6-2.4); Potassium 3.9 mEq/L (3.5-5.1); Protein, Total 8.4 g/dL (6.4-8.2); Troponin High Sensitivity 34.5 pg/mL (<58.9)
[2023-11-15] MEDS ORDERED: HYDROMORPHONE HCL 1 MG/ML INJ ONE ×2 (00:31→01:22)
[2023-11-15] MEDS ORDERED: KETOROLAC 30 MG/ML INJ ONE (01:22)
--- NOTE | 2023-11-15 01:47 | EDPHYS ---
Physician Documentation [facility] Name: Carrington Dumont Age: 48 yrs Sex: Male : 1975 Arrival Date: 11/14/2023 Time: 22:47 Bed 15 Private MD: ED Physician Marc Flores HPI: 11/14 23:38 This 48 yrs old Male presents to ER via Ambulatory with complaints of michelle Abdominal Pain, Headache, Vomiting. 23:38 The patient complains of pain to the forehead. michelle Historical: - Allergies: 23:06 PENICILLINS; rv - PMHx: 23:06 Hypertension; Hypothyroidism; rv - PSHx: 23:06 Cholecystectomy; rv - Immunization history:: Adult Immunizations up to date. - Social history:: Smoking status: Patient reports the use of cigarette tobacco products, smokes one pack cigarettes per day. ROS: 23:38 Constitutional: Negative for fever, chills, and weight loss, Eyes: Negative for injury, michelle pain, redness, and discharge, ENT: Negative for injury, pain, and discharge, Neck: Negative for injury, pain, and swelling, Cardiovascular: Negative for chest pain, palpitations, and edema, Respiratory: Negative for shortness of breath, cough, wheezing, and pleuritic chest pain, Back: Negative for injury and pain, : Negative for injury, bleeding, discharge, and swelling, MS/Extremity: Negative for injury and deformity, Skin: Negative for injury, rash, and discoloration, Neuro: Negative for headache, weakness, numbness, tingling, and seizure, Psych: Negative for depression, anxiety, suicide ideation, homicidal ideation, and hallucinations, Allergy/Immunology: Negative for hives, rash, and allergies, Endocrine: Negative for neck swelling, polydipsia, polyuria, polyphagia, and marked weight changes, Hematologic/Lymphatic: Negative for swollen nodes, abnormal bleeding, and unusual bruising, 23:38 Abdomen/GI: Positive for abdominal pain, nausea, vomiting, abdominal cramps, of the right lower quadrant, Exam: 23:38 Constitutional: This is a well developed, well nourished patient who is awake, alert, michelle and in no acute distress. Head/Face: Normocephalic, atraumatic. Eyes: Pupils equal round and reactive to light, extra-ocular motions intact. Lids and lashes normal. Conjunctiva and sclera are non-icteric and not injected. Cornea within normal limits. Periorbital areas with no swelling, redness, or edema. ENT: Nares patent. No nasal discharge, no septal abnormalities noted. Tympanic membranes are normal and external auditory canals are clear. Oropharynx with no redness, swelling, or masses, exudates, or evidence of obstruction, uvula midline. Mucous membranes moist. Neck: Trachea midline, no thyromegaly or masses palpated, and no cervical lymphadenopathy. Supple, full range of motion without nuchal rigidity, or vertebral point tenderness. No Meningismus. Chest/axilla: Normal chest wall appearance and motion. Nontender with no deformity. No lesions are appreciated. Cardiovascular: Regular rate and rhythm with a normal S1 and S2. No gallops, murmurs, or rubs. Normal PMI, no JVD. No pulse deficits. Respiratory: Lungs have equal breath sounds bilaterally, clear to auscultation and percussion. No rales, rhonchi or wheezes noted. No increased work of breathing, no retractions or nasal flaring. Back: No spinal tenderness. No costovertebral tenderness. Full range of motion. Male : Normal genitalia with no discharge or lesions. Skin: Warm, dry with normal turgor. Normal color with no rashes, no lesions, and no evidence of cellulitis. MS/ Extremity: Pulses equal, no cyanosis. Neurovascular intact. Full, normal range of motion. Neuro: Awake and alert, GCS 15, oriented to person, place, time, and situation. Cranial nerves II-XII grossly intact. Motor strength 5/5 in all extremities. Sensory grossly intact. Cerebellar exam normal. Normal gait. Psych: Awake, alert, with orientation to person, place and time. Behavior, mood, and affect are within normal limits. 23:38 Abdomen/GI: Inspection: abdomen appears normal, Bowel sounds: normal, Palpation: moderate abdominal tenderness, in the right lower quadrant, Liver: no appreciated palpable abnormalities, Hernia: not appreciated, 11/15 00:02 ECG was reviewed by the Attending Physician. [facility] Vital Signs: 11/14 23:05 BP 144 / 95; Pulse 92; Resp 19; Temp 97.9; Pulse Ox 100% ; Weight 111.13 kg; Height 5 rv ft. 8 in. ; Pain 10/10; 23:16 BP 148 / 111; Pulse 91; Resp 16; Pulse Ox 98% on R/A; me1 11/15 02:28 BP 160 / 91; Pulse 80; Resp 17; Temp 98; Pulse Ox 97% on R/A; rv 11/14 23:05 Body Mass Index 37.25 (111.13 kg, 172.72 cm) rv 11/14 23:05 Pain Scale: Adult rv Linda Coma Score: 11/14 23:40 Eye Response: spontaneous(4). Motor Response: obeys commands(6). Verbal Response: michelle oriented(5). Total: 15. MDM: 23:13 Patient medically screened. michelle 23:40 Differential diagnosis: cluster headache, Nonspecific abd pain, pancreatitis, michelle appendicitis, viral gastroenteritis, gastroenteritis, bowel obstruction, Peptic Ulcer Disease, Ureterolithiasis, urinary tract infection. Data reviewed: vital signs, nurses notes, lab test result(s), EKG, radiologic studies, CT scan, plain films. Consideration of Admission/Observation Escalation of care including admission/observation considered. I considered the following discharge prescriptions or medication management in the emergency department Medications were administered in the Emergency Department. See MAR. Independent interpretation of the following test(s) in the Emergency Department EKG: See my EKG interpretation above CT Scan: My interpretation is abd pelvis. Test considered but Not performed: Ultrasound no abd usg. Historians other than the Patient: patient bwell informed. Care significantly affected by the following chronic conditions: Hypertension, Obesity. 11/14 23:24 Order name: Basic Metabolic Panel; Complete Time: 00:25 [facility] 11/14 23:24 Order name: CBC with Diff; Complete Time: 00:25 [facility] 11/14 23:24 Order name: LFT's; Complete Time: 00:25 [facility] 11/14 23:24 Order name: Magnesium; Complete Time: 00:25 [facility] 11/14 23:24 Order name: NT PRO-BNP; Complete Time: 00:25 [facility] 11/14 23:24 Order name: PT-INR; Complete Time: 00: [facility] 11/14 23:24 Order name: Troponin HS; Complete Time: 00:25 [facility] 11/14 23:24 Order name: Lipase; Complete Time: 00:25 [facility] 11/14 23:24 Order name: Urinalysis w/ reflexes [facility] 11/15 02:18 Order name: Urinalysis w/ reflexes [facility] 11/15 02:18 Order name: CBC with Automated Diff [facility] 11/15 02:18 Order name: CBC with Automated Diff [facility] 11/15 02:18 Order name: Comprehensive Metabolic Panel [facility] 11/15 02:18 Order name: Comprehensive Metabolic Panel [facility] 11/15 02:18 Order name: Magnesium [facility] 11/15 02:18 Order name: Magnesium [facility] 11/15 02:22 Order name: Fecal Leukocyte Stain [facility] 11/15 02:22 Order name: Stool Culture [facility] 11/14 23:24 Order name: XRAY Chest (1 view) [facility] 11/14 23:24 Order name: CT Abd/Pelvis - IV Contrast Only [facility] 11/14 23:24 Order name: EKG; Complete Time: 23:25 [facility] 11/14 23:24 Order name: Cardiac monitoring; Complete Time: 00:38 [facility] 11/14 23:24 Order name: EKG - Nurse/Tech; Complete Time: 00:38 [facility] 11/14 23:24 Order name: IV Saline Lock; Complete Time: 23:36 [facility] 11/14 23:24 Order name: Labs collected and sent; Complete Time: 23:36 [facility] 11/14 23:24 Order name: O2 Per Protocol; Complete Time: 23:25 [facility] 11/14 23:24 Order name: O2 Sat Monitoring; Complete Time: 23:25 [facility] EC/27 00:02 Rate is 84 beats/min. Rhythm is regular. QRS [place] is Normal. [place] interval is normal. QRS michelle interval is normal. QT interval is normal. No Q waves. T waves are Normal. No ST changes noted. Clinical impression: NSR w/ Non-specific ST/T Changes and No evidence of ischemia. Interpreted by me. Reviewed by me. Administered Medications: 11/14 23:36 Drug: NS 0.9% IV 1000 ml IV at 1 bolus Per protocol; 1000 mL bolus Route: IV; Rate: 1 me1 bolus; Site: right forearm; 11/15 02:26 Follow up: IV Status: Completed infusion; IV Intake: 1000ml rv 11/14 23:36 Drug: morphine IVP or IV 4 mg IVP once over 4 mins Route: IVP; Infused Over: 4 mins; me1 Site: right forearm; 11/15 00:04 Follow up: Response: No adverse reaction; Pain is unchanged, physician notified me1 11/14 23:36 Drug: Ondansetron IVP 4 mg IVP once; over 2 minutes Route: IVP; Site: right forearm; me1 11/15 00:04 Follow up: Response: No adverse reaction me1 00:32 Drug: HYDROmorphone IVP 1 mg IVP once Route: IVP; Site: right forearm; rv 02:27 Follow up: Response: No adverse reaction rv 01:25 Drug: HYDROmorphone IVP 1 mg IVP once Route: IVP; Site: right forearm; rv 02:27 Follow up: Response: No adverse reaction rv 01:25 Drug: Ketorolac IVP 30 mg IVP once Route: IVP; Site: right forearm; rv 02:27 Follow up: Response: No adverse reaction rv 02:00 Drug: metroNIDAZOLE IVPB 500 mg 100 ml IVPB at 200 ml/hr once over 30 mins Volume: 100 rv ml; Route: IVPB; Rate: 200 ml/hr; Infused Over: 30 mins; Site: right forearm; 02:27 Follow up: IV Status: Completed infusion; IV Intake: 100ml rv 02:28 Not Given (Patient Refused): ondansetron 4 mg IVP once; over 2 minutes rv 02:28 Drug: Ciprofloxacin IVPB 400 mg 200 ml IVPB once over 60 mins Volume: 200 ml; Route: rv IVPB; Infused Over: 60 mins; Site: right forearm; 02:28 Follow up: IV Status: Infusion continued upon admission rv Disposition Summary: 11/15/23 01:47 Hospitalization Ordered Notes: Hospitalization Status: Observation michelle [facility] Condition: Fair michelle Problem: new michelle Symptoms: have improved michelle Bed/Room Type: Standard michelle Provider: Marilee Dorado(11/15/23 01:48) michelle [facility](11/15/23 02:18) ty Diagnosis - Abdominal tenderness michelle - Other viral enteritis michelle - Essential (primary) hypertension michelle Forms: - Medication Reconciliation Form michelle - SBAR form michelle - Leadership Thank You Letter michelle Signatures: Dispatcher [employer] Marc Muse MD MD cha Vicente, Ronaldo, RN RN Miryam Valdes RN RN nm1 Loi Kingsley ty Corrections: (The following items were deleted from the chart) 01:48 01:47 Demario Trevizo cha, cha 02:18 01:47 michelle willard
--- NOTE | 2023-11-15 01:47 | ER ---
Nurse's Notes [facility] Name: Carrington Dumont Age: 48 yrs Sex: Male : 1975 Arrival Date: 11/14/2023 Time: 22:47 Bed 15 Private MD: Diagnosis: Abdominal tenderness;Other viral enteritis;Essential (primary) hypertension Presentation: 11/14 23:05 Chief complaint: Patient states: RLQ PAIN, sudden onset, 3 days ago, vomited twice rv today, pain progressed and worse today. Coronavirus screen: At this time, the client does not indicate any symptoms associated with coronavirus-19. Ebola Screen: No symptoms or risks identified at this time. Initial Sepsis Screen: Does the patient meet any 2 criteria? No. Patient's initial sepsis screen is negative. Does the patient have a suspected source of infection? No. Patient's initial sepsis screen is negative. Risk Assessment: Do you want to hurt yourself or someone else? Patient reports no desire to harm self or others. Onset of symptoms was November 14, 2023. 23:05 Method Of Arrival: Ambulatory rv 23:05 Acuity: DAYANNA 3 rv Triage Assessment: 23:06 General: Appears uncomfortable, Behavior is calm, cooperative. Pain: Complains of pain rv in right lower quadrant. Neuro: Level of Consciousness is awake, alert, obeys commands, Oriented to person, place, time, situation. Cardiovascular: Capillary refill < 3 seconds Patient's skin is warm and dry. Respiratory: Airway is patent Respiratory effort is even, unlabored. GI: Abdomen is round non-distended, Abdomen is tender to palpation in right lower quadrant. : No signs and/or symptoms were reported regarding the genitourinary system. Derm: Skin is intact. Historical: - Allergies: 23:06 PENICILLINS; rv - PMHx: 23:06 Hypertension; Hypothyroidism; rv - PSHx: 23:06 Cholecystectomy; rv - Immunization history:: Adult Immunizations up to date. - Social history:: Smoking status: Patient reports the use of cigarette tobacco products, smokes one pack cigarettes per day. Screenin:07 [facility] ED Fall Risk Assessment (Adult) History of falling in the last 3 months, rv including since admission No falls in past 3 months (0 pts) Score/Fall Risk Level 0 - 2 = Low Risk Oriented to surroundings, Maintained a safe environment, Educated pt \T\ family on fall prevention, incl call for assistance when getting out of bed, Assessed \T\ reinforced patient's understanding of fall precautions. Abuse screen: Denies threats or abuse. Denies injuries from another. Nutritional screening: No deficits noted. Tuberculosis screening: No symptoms or risk factors identified. Assessment: 23:20 General: Appears uncomfortable, ill, well groomed, well developed, well nourished, me1 Behavior is calm, cooperative, appropriate for age, Reports RLQ PAIN, sudden onset, 3 days ago, vomited twice today, pain progressed and worse today. Pain: Complains of pain in abdomen and right lower quadrant Pain radiates to right flank Pain currently is 10 out of 10 on a pain scale. Quality of pain is described as sharp, shooting, stabbing, Pain began 2-3 days ago. Is continuous. Neuro: Level of Consciousness is awake, alert, obeys commands, Oriented to person, place, time, situation, Appropriate for age. Cardiovascular: Capillary refill < 3 seconds Patient's skin is warm and dry. Respiratory: Airway is patent Trachea midline Respiratory effort is even, unlabored, Respiratory pattern is regular, symmetrical. GI: Abdomen is round non-distended, Bowel sounds present X 4 quads. Reports lower abdominal pain, nausea, vomiting, since 3 days ago. Vital Signs: 23:05 BP 144 / 95; Pulse 92; Resp 19; Temp 97.9; Pulse Ox 100% ; Weight 111.13 kg; Height 5 rv ft. 8 in. ; Pain 10/10; 23:16 BP 148 / 111; Pulse 91; Resp 16; Pulse Ox 98% on R/A; me1 11/15 02:28 BP 160 / 91; Pulse 80; Resp 17; Temp 98; Pulse Ox 97% on R/A; rv 11/14 23:05 Body Mass Index 37.25 (111.13 kg, 172.72 cm) rv 11/14 23:05 Pain Scale: Adult rv Linda Coma Score: 11/14 23:40 Eye Response: spontaneous(4). Motor Response: obeys commands(6). Verbal Response: michelle oriented(5). Total: 15. ED Course: 22:52 Patient arrived in ED. ag3 23:06 Triage completed. rv 23:06 Arm band placed on right wrist. rv 23:13 Marc Flores MD is Attending Physician. michelle 23:15 Inserted saline lock: 20 gauge in right forearm, using aseptic technique. Blood rv collected. 23:20 Miryam Valdes, VIOLET is Primary Nurse. me1 23:20 Patient has correct armband on for positive identification. Bed in low position. Call ms1 light in reach. Side rails up X 1. Provided Education on: POC. Verbalized understanding. . 23:20 No provider procedures requiring assistance completed. me1 23:36 Lipase Sent. me1 11/15 00:35 XRAY Chest (1 view) In Process Unspecified. EDMS 01:10 CT Abd/Pelvis - IV Contrast Only In Process Unspecified. EDMS 01:44 Demario Trevizo is Hospitalizing Provider. michelle 01:48 Marilee Dorado MD is Hospitalizing Provider. michelle 02:29 Patient admitted, IV remains in place. rv Administered Medications: 11/14 23:36 Drug: NS 0.9% IV 1000 ml IV at 1 bolus Per protocol; 1000 mL bolus Route: IV; Rate: 1 me1 bolus; Site: right forearm; 11/15 02:26 Follow up: IV Status: Completed infusion; IV Intake: 1000ml rv 11/14 23:36 Drug: morphine IVP or IV 4 mg IVP once over 4 mins Route: IVP; Infused Over: 4 mins; [facility] [place] [place] Site: right forearm; 11/15 00:04 Follow up: Response: No adverse reaction; Pain is unchanged, physician notified [facility] [place] [place] 11/14 23:36 Drug: Ondansetron IVP 4 mg IVP once; over 2 minutes Route: IVP; Site: right forearm; ms1 11/15 00:04 Follow up: Response: No adverse reaction me1 00:32 Drug: HYDROmorphone IVP 1 mg IVP once Route: IVP; Site: right forearm; rv 02:27 Follow up: Response: No adverse reaction rv 01:25 Drug: HYDROmorphone IVP 1 mg IVP once Route: IVP; Site: right forearm; rv 02:27 Follow up: Response: No adverse reaction rv 01:25 Drug: Ketorolac IVP 30 mg IVP once Route: IVP; Site: right forearm; rv 02:27 Follow up: Response: No adverse reaction rv 02:00 Drug: metroNIDAZOLE IVPB 500 mg 100 ml IVPB at 200 ml/hr once over 30 mins Volume: 100 rv ml; Route: IVPB; Rate: 200 ml/hr; Infused Over: 30 mins; Site: right forearm; Follow up: IV Status: Completed infusion; IV Intake: 100ml rv 02:28 Not Given (Patient Refused): ondansetron 4 mg IVP once; over 2 minutes rv 02: Drug: Ciprofloxacin IVPB 400 mg 200 ml IVPB once over 60 mins Volume: 200 ml; Route: rv IVPB; Infused Over: 60 mins; Site: right forearm; 02: Follow up: IV Status: Infusion continued upon admission rv Medication: 11/14 23:07 VIS not applicable for this client. rv Intake: 11/15 02: IV: 1000ml; Total: 1000ml. rv : IV: 100ml; Total: 1100ml. rv Outcome: 01:47 Decision to Hospitalize by Provider. [facility] 02:28 Admitted to Med/surg accompanied by nurse, via wheelchair, room 212, with chart, Report rv called to lay garcia 02:28 Condition: good 02:28 Instructed on the need for admit, 02:35 Patient left the ED. rv Signatures: Dispatcher [employer] EDFL Marc Flores MD MD cha Vicente, Ronaldo, RN RN Aixa Tilley Michelle, RN RN me1 Corrections: (The following items were deleted from the chart) 11/14 23:20 23:05 Chief complaint: Patient states: RLQ PAIN, sudden onset, 3 days ago, vomited me1 twice today, pain progressed and worse today. rv
[2023-11-15] MEDS ORDERED: CIPROFLOXACIN 400mg IV 400 MG/200 ML BAG IV ONE (01:56)
[2023-11-15] MEDS ORDERED: METRONIDAZOLE 500mg IVPB 500 MG/100 ML BAG IV ONE (01:56)
--- NOTE | 2023-11-15 02:53 | P.HP ---
Certification for Inpatient Patient admitted to: Inpatient With expected LOS: >2 Midnights Practitioner: I am a practitioner with admitting privileges, knowledge of patient current condition, hospital course, and medical plan of care. Services: Services provided to patient in accordance with Admission requirements found in Title 42 Section 412.3 of the Code of Federal Regulations Patient History Date of Service: 11/15/23 Reason for admission: Abdominal pain History of Present Illness: 48-year-old male with a history of hypertension and tobacco use presented with 3 days of worsening right lower quadrant abdominal pain. The symptoms initially started 3 weeks ago and had been intermittent but now has become more constant and increasing in intensity. He was seen at an outside hospital last week and was told about questionable appendicitis however no surgery was done. For the last 3 days symptom is not associated with nausea, vomiting and diarrhea he had 2 episodes of vomiting before he came to the hospital and also has been having loose/watery stools with streaks of blood. He denies fever he does not drink alcohol. On arrival to the ED his vital signs are within normal. Notable lab is WBC of 11.7k. CT abdomen and pelvis reviewed mildly prominent fluid-filled small bowel loops in the left and central lower abdomen which could represent enteritis, normal appendix. Patient has received Dilaudid, Toradol, Cipro, Flagyl and IV fluid bolus in the ED. Allergies No Known Allergies Allergy (Unverified 11/15/23 03:27) Review of Systems 10-point ROS is otherwise unremarkable (Except for HPI) Physical Examination - Vital Signs Temperature: 97.9 F Blood Pressure: 148/111 Pulse: 91 Respirations: 16 Pulse Ox (%): 98 - Physical Exam General: Alert, Oriented x3, Mild distress HEENT: Atraumatic, Normocephalic, PERRLA Neck: Supple, JVD not distended Respiratory: Clear to auscultation bilaterally, Normal air movement Cardiovascular: No edema, Regular rate/rhythm, Normal S1 S2 Gastrointestinal: Normal bowel sounds, Non-distended, No guarding, Tenderness (Right lower quadrant), Rebound Musculoskeletal: No swelling, No erythema, No tenderness Integumentary: No rashes Neurological: Normal gait, Normal speech, Normal strength at 5/5 x4 extr, Sensation intact - Studies Laboratory Data (last 24 hrs) 01/26/24 01/26/24 01/26/24 23:15 23:15 23:15 WBC 11.70 H Hgb 16.8 Hct 48.7 Plt Count 338 PT 10.6 INR 0.96 Sodium 137 Potassium 3.9 BUN 11 Creatinine 0.73 Glucose 100 Magnesium 2.3 Total Bilirubin 0.4 AST 15 ALT 42 Alkaline Phosphatase 84 Lipase 34 Assessment and Plan - Plan Acute enteritis Start ceftriaxone and Flagyl Clear liquid diet, advance as tolerated Antiemetics, IV fluid and pain control Stool WBC and culture Follow-up blood culture - Advance Directives Does patient have a Living Will: No Does patient have a Durable POA for Healthcare: No
[2023-11-15] MEDS: MORPHINE 2 MG/ML SYR IV PRN ×2 (03:18→07:00)
[2023-11-15] MEDS: D5.45NS W/KCL 20MEQ 1,000 ML IV SCH ×2 (03:18→12:01)
[2023-11-15 03:33] VITALS: BMI 37.2
[2023-11-15] MEDS: CEFTRIAXONE 1,000 MG in NA CHLORIDE 0.9% 50 ML IVPB SCH (08:02)
[2023-11-15] MEDS: METRONIDAZOLE 500mg IVPB 500 MG/100 ML BAG IV SCH ×2 (08:02→16:12)
[2023-11-15] MEDS: AMLODIPINE 5 MG TAB PO SCH (08:41)
[2023-11-15] MEDS ORDERED: MORPHINE 4 MG/ML SYR IV PRN (09:18)
[2023-11-15] MEDS: HYDROMORPHONE HCL 1 MG/ML INJ IV PRN ×3 (12:01→21:14)
[2023-11-15] MEDS ORDERED: INFLUENZA VACCINE (for 6+ mo) 0.5 ML DOSE IMVAC ONE (13:00)
[2023-11-15 14:37] LABS: Urine Bacteria None Seen /HPF (<20); Urine Bilirubin NEGATIVE (Negative); Urine Blood Negative (Negative); Urine Clarity Clear (Clear); Urine Color Yellow (Yellow); Urine Glucose NEGATIVE (Negative); Urine Mucus Slight /HPF (None Seen); Urine Protein TRACE (Negative); Urine RBC <5 /HPF (None Seen); Urine Urobilinogen Normal (Normal); Urine pH 5.5 (5.0-7.0)
--- NOTE | 2023-11-15 16:08 | P.PN ---
Date of Service: 11/15/23 Patient seen and examined. He has been complaining of uncontrolled right lower quadrant pain. No nausea or vomiting. Physical examination notable for tender right lower quadrant, with guarding no RBT. CT abdomen and pelvis results reviewed and report normal appendix. Plan: General surgery Dr. Laguerre consulted and informed to evaluate patient as soon as feasible. IV morphine as needed for pain IV Cipro and Flagyl IV fluid Serial abdominal examination
[2023-11-15] MEDS ORDERED: MORPHINE 2 MG/ML SYR IV PRN (16:35)
--- NOTE | 2023-11-15 16:44 | P.CNS ---
Date of Consult: 11/15/23 PC: I was asked to see this 48-year-old male in regards to right lower quadrant abdominal pain HPC: This patient presented to the emergency room with severe right lower quadrant abdominal pain for diagnosis and treatment. Says he has had this pain for the last 4 days. It has been unrelenting, not getting any relief. He had a similar episode to this approximately 4 weeks ago was evaluated at another institution and was recommended to have follow-up with a project surveyor. Unfortunately he was unable to execute this plan. He presents now with this pain, states that he has no nausea, vomiting, or diarrhea just pain. PSHx: Negative PMHx: According to family friends, patient was supposed to be treated for his hypertension, also had some weight loss medications. Social Hx: No known allergies Sys R: No cough, wheeze, shortness of breath. No chest pain or palpitations. Denies any urinary complaints O/E: Awake alert, appears to be in no distress, moves easily around in the bed. Vital signs are currently stable HEENT: Negative Chest: Chest movement equal bilaterally Abd: Patient is tender in the right lower quadrant. However pain appears to be superficial almost on the skin. [place]: No evidence of any rashes on his back. Data: White cell count slightly elevated, CT scan demonstrates normal appendix Impression: Patient does have tenderness in the right lower quadrant, but clinically does not appear to have acute appendicitis, possible enteritis Plan: I will give the patient some pain medicine today, also for liquid diet. We will make him n.p.o. Reevaluate tomorrow. But at the current time does work require any surgical intervention. I have explained this to the patient. The risks of surgery were also outlined. The fact he has untreated sleep apnea, history of hypertension in the past that was untreated, and apparently has been taking some weight loss medication I will increase the risks of a laparoscopy. He understands.
[2023-11-15] MEDS ORDERED: DIAZEPAM 2 MG TABLET PO SCH (21:00)
--- NOTE | 2023-11-15 21:07 | RAD REPORT ---
EXAM DESCRIPTION: CT - Abdomen Pelvis W Contrast - 11/15/2023 7:33 am CLINICAL HISTORY: RLQ PAIN COMPARISON: 04/24/2021 TECHNIQUE: CT of the abdomen and pelvis performed following the administration of IV contrast. No or al contrast. This exam was performed according to our departmental dose-optimization program, which i ncludes automated exposure control, adjustment of the mA and/or kV according to patient size and/or u se of iterative reconstruction technique. FINDINGS: Lung Bases: The visualized lung bases are clear. Abdomen: Liver: The liver has normal contour and density. No suspicious mass. Gallbladder: Surgically absent. No significant biliary dilatation. Spleen, Pancreas, and Adrenal Glands: The spleen, pancreas, and adrenal glands are unremarkable. Kidneys: No suspicious mass. No urinary tract calculi. No hydronephrosis. Vasculature: The aorta and IVC have normal caliber and position. Mild atherosclerotic plaque. No ao rtic dissection. Stomach: The stomach and duodenum have normal course. Other: No free intraperitoneal air. No free fluid or lymphadenopathy. Pelvis: Bladder: Urinary bladder is unremarkable. Bowel: There are some mildly prominent fluid-filled small bowel loops in the left and central lower abdomen. No winifred bowel obstruction. Appendix: Normal appendix. Pelvis: No suspicious mass. Bones: No destructive bone lesions identified. IMPRESSION: 1. Mildly prominent fluid-filled small bowel loops in the left and central lower abdom en could reflect enteritis. No winifred bowel obstruction. 2. Normal appendix. Electronically signed by: Georgia Duval MD 11/15/2023 01:24 AM DIRECTOR OF REHABILITATION Due to temporary technical issues with the PACS/Fluency reporting system, reports are being signed by the in house radiologists without review as a courtesy to insure prompt reporting. The interpreting radiologist is fully responsible for the content of the report.
--- NOTE | 2023-11-15 21:16 | RAD REPORT ---
EXAM DESCRIPTION: RAD - Chest Single View - 11/15/2023 12:34 am CLINICAL HISTORY: 48 years Male, ABDOMINAL DISTENTION COMPARISON: Chest x-ray report and CT chest report from 04/24/2021. The images were not available for review TECHNIQUE: Single portable x-ray view of the chest performed on 11/14/2023 at 11:52 PM FINDINGS: The lungs are well expanded and are clear. There is no evidence of a pneumothorax. The rad iograph is lordotic in position. The cardiac silhouette is prominent and is likely accentuated by the portable lordotic technique. The mediastinal contours are normal. No acute osseous abnormality is identified. No focal soft tissue abnormalities are seen. Lines and tubes: None. Free air: None identified, IMPRESSION: No evidence of acute intrathoracic disease. Electronically signed by: Pati Ramirez DO 11/15/2023 12:46 AM DATA WAREHOUSE ARCHITECT Due to temporary technical issues with the PACS/Fluency reporting system, reports are being signed by the in house radiologists without review as a courtesy to insure prompt reporting. The interpreting radiologist is fully responsible for the content of the report.
[2023-11-16 00:02] VITALS: O2SAT 96
[2023-11-16] MEDS: METRONIDAZOLE 500mg IVPB 500 MG/100 ML BAG IV SCH ×2 (00:38→09:13)
[2023-11-16] MEDS: D5.45NS W/KCL 20MEQ 1,000 ML IV SCH (01:38)
[2023-11-16 04:13] LABS: Absolute Lymphocytes (CBC) 2.5 K/uL (0.7-4.9); Hematocrit 43.2 % (39.6-49.0); Lymphocytes % 28.8 % (15.3-44.8); MCV 91.8 fL (80-100); MPV 7.7 fL (7.6-11.3); Platelets 288 thou/uL (152-406); RBC Red Blood Cell Count 4.71 M/uL (4.33-5.43)
[2023-11-16 04:34] LABS: Albumin 3.2 g/dL (3.4-5.0); Bilirubin Total 0.6 mg/dL (0.2-1.0); Magnesium 2.3 mg/dL (1.6-2.4); Protein, Total 6.8 g/dL (6.4-8.2)
[2023-11-16] MEDS: AMLODIPINE 5 MG TAB PO SCH (09:14)
[2023-11-16] MEDS: CEFTRIAXONE 1,000 MG in NA CHLORIDE 0.9% 50 ML IVPB SCH (09:14)
--- NOTE | 2023-11-16 12:12 | P.PN ---
Date of Service: 11/16/23 Subjective Awake and feeling better this morning, abdominal pain has improved to palpation He has an appetite ROS 10 point ROS as noted above, otherwise negative Physical Exam General: Alert, Oriented x3, Mild distress HEENT: Atraumatic, Normocephalic, PERRLA Neck: Supple, JVD not distended Respiratory: Clear to auscultation bilaterally, Normal air movement Cardiovascular: No edema, Regular rate/rhythm, Normal S1 S2 Gastrointestinal: Normal bowel sounds, Non-distended, No guarding, Tenderness (Right lower quadrant), Rebound Musculoskeletal: No swelling, No erythema, No tenderness Integumentary: No rashes Neurological: Normal gait, Normal speech, Normal strength at 5/5 x4 extr, Sensation intact Vitals Reviewed Problem list Acute enteritis Assessment and Plan Acute enteritis Start ceftriaxone and Flagyl Clear liquid diet, advance as tolerated Antiemetics, IV fluid and pain control Stool WBC and culture Follow-up blood culture Ozempic used for two months, abdominal pain started when Ozempic was started DVT ppx Code status LOS
[2023-11-16 13:04] VITALS: BP 137/76; TEMP 98.6
--- NOTE | 2023-11-16 14:09 | P.PN ---
Date of Service: 11/16/23 S: Patient states he feels better today. Pain is almost gone. Wants to go home. O: Abdomen is soft, minimal tenderness patient looks well. A: Nonsurgical abdomen, possible enteritis. P: Once again I discussed the patient's findings on his CT scan. I showed him again that the appendix was normal on CT. I recommended that he keep his appointment this time and follow-up with a GI doctor for colonoscopy/endoscopy. Also recommended he get a sleep study done, and just a good overall physical. He understands.
--- NOTE | 2023-11-16 16:58 | P.DS ---
Admission Date: 11/15/23 Discharge Date: 11/16/23 Disposition: ROUTINE DISCHARGE Discharge Condition: GOOD Reason for Admission: Abdominal pain Brief History of Present Illness: Diagnosis Acute Enteritis HPI 11/15/23 Carrington Dumont is a 48-year-old male with a history of hypertension and tobacco use presented with 3 days of worsening right lower quadrant abdominal pain. The symptoms initially started 3 weeks ago and had been intermittent but now has become more constant and increasing in intensity. He was seen at an outside hospital last week and was told about questionable appendicitis however no surg lyndsay was done. For the last 3 days symptom is not associated with nausea, vomiting and diarrhea he had 2 episodes of vomiting before he came to the hospital and also has been having loose/watery stools with streaks of blood. He denies fever he does not drink alcohol. On arrival to the ED his vital signs are within normal. Notable lab is WBC of 11.7k. CT abdomen and pelvis reviewed mildly prominent fluid-filled small bowel loops in the left and central lower abdomen which could represent enteritis, normal appendix. Patient has received Dilaudid, Toradol, Cipro, Flagyl and IV fluid bolus in the ED. Hospital Course: Carrington Dumont is a pleasant 48 year old male with a past medical history significant for hypertension and tobacco use who was admitted to the [facility] on 11/15/23 for Right sided abdominal pain. Carrington Dumont presented to the ED with complaints of severe right abdominal pain. CT scan was negative for appendicitis. He is currently taking Ozempic (Semaglutide) for weight loss, this medication has side effects of abdominial pain, pancreatitis, nausea, vomiting, diarrhea, and many more. Instructions to stop taking the Semaglutide and see how he feels in the next couple of weeks. He has tolerated a clear liquid diet and regular diet, blood pressure improved with Norvasc and is hemodynamically stable, serum glucose is within normal limits, he is ambulating independently, urinating without trouble, abdominal pain improved, and ready for discharge. Instructions to continue advancing diet slowly, bland diet today, return to work November 19. On 11/16/23, Carrington was seen on morning rounds and deemed medically stable for discharge. Carrington was discharged with instructions to schedule follow-up appointments with PCP for blood pressure management and weight loss medication. No prescriptions this admission. The patient was given the opportunity to ask questions and reported no further questions. Furthermore, all questions were answered to the best of my ability. A copy of this discharge summary will be sent to the above providers to facilitate continuity of care. Today, I personally spent 50 minutes with Carrington, of which greater than 50% of the time was spent in patient education, counseling, and coordination of care as described above. Physical Exam General: AAO x3, NAD, obese HEENT: Atraumatic, Normocephalic, PERRLA Neck: Supple, JVD not distended, trachea midline Respiratory: Clear to auscultation bilaterally, Normal air movement Cardiovascular: No edema noted, RRR, Normal S1 S2 Gastrointestinal: Normal bowel sounds, Non-distended, non tender, No guarding Musculoskeletal: No swelling, No erythema, No tenderness Integumentary: No rashes Neurological: Normal gait, Normal speech, Normal strength at 5/5 x4 extr, Sensation intact Vital Signs/Physical Exam: Temp Pulse Resp BP Pulse Ox 98.6 F 79 16 137/76 97 11/16/23 12:00 11/16/23 12:00 11/16/23 12:00 11/16/23 12:00 11/16/23 12:00 Laboratory Data at Discharge: WBC 8.70 thou/uL (4.3-10.9) 11/16/23 03:09 Hgb 14.5 g/dL (13.6-17.9) D 11/16/23 03:09 Hct 43.2 % (39.6-49.0) 11/16/23 03:09 Plt Count 288 thou/uL (152-406) 11/16/23 03:09 PT 10.6 SECONDS (9.5-12.5) 11/14/23 23:15 INR 0.96 11/14/23 23:15 Sodium 135 mEq/L (136-145) L 11/16/23 03:09 Potassium 4.0 mEq/L (3.5-5.1) 11/16/23 03:09 BUN 6 mg/dL (7-18) L 11/16/23 03:09 Creatinine 0.78 mg/dL (0.70-1.30) 11/16/23 03:09 Glucose 98 mg/dL (74-106) 11/16/23 03:09 Magnesium 2.3 mg/dL (1.6-2.4) 11/16/23 03:09 Total Bilirubin 0.6 mg/dL (0.2-1.0) 11/16/23 03:09 AST 24 U/L (15-37) 11/16/23 03:09 ALT 68 U/L (16-61) H 11/16/23 03:09 Alkaline Phosphatase 79 U/L (45-117) 11/16/23 03:09 Lipase 34 U/L (13-75) 11/14/23 23:15 Physician Discharge Instructions: Carrington Dumont presented to the ED with complaints of severe right abdominal pain. CT scan was negative for appendicitis. You are currently taking Ozempic (Semaglutide) for weight loss, this medication has side effects of abdominial pain, pancreatitis, nausea, vomiting, and diarrhea and many more. Please stop taking the Semaglutide and see how you feel in the next couple of weeks. 1. Call and make an appointment with your PCP to change your weight loss medication and manage your high blood pressure 2. continue today with a bland diet 3. Return to work on FridayNovember 19 4. Return to the ED if symptoms return 5. no new medications this admission Diet: [employer] Activity: Ad mono Followup: Nick ZAIDIOT [Primary Care Provider] - Time spent managing pt's care (in minutes): 50
== END 2023-11-16 16:30 | disposition home or self-care (01) | DRG 392 ==
LOC: ER 22:47 → 2ND 11-15 02:30
PROVIDERS: ADMIT Internal Medicine; ATTEND Internal Medicine
DX: A08.4 Viral intestinal infection, unspecified (principal); E03.9 Hypothyroidism, unspecified; I10 Essential (primary) hypertension; F17.210 Nicotine dependence, cigarettes, uncomplicated; Z88.0 Allergy status to penicillin; Z90.49 Acquired absence of other specified parts of digestive tract
CPT/HCPCS: 36415; 71045; 74177; 80048; 80053; 80076; 81001; 83690; 83735; 83880; 84484; 85025; 85610; 93005; J0696; J0744; J1170; J2270; J2405; J7030; Q9967

== ENCOUNTER → 2023-11-17 | Emergency (ER) | payer OTHER ==
[~2023-11-17] MED LIST: CIPROFLOXACIN HCL 500 MG TAB ONE; DICYCLOMINE HCL 20 MG/2 ML AMP IM ONE; FAMOTIDINE 20 MG/2 ML VIAL IV ONE; MORPHINE 4 MG/ML SYR ONE; NA CHLORIDE 0.9% 1,000 ML ONE; ONDANSETRON 4 MG/2 ML VIAL ONE; metroNIDAZOLE 500 MG TABLET ONE
--- OUTSIDE RECORDS SUMMARY | 2023-11-17 02:27 | XMS REPORT | Continuity of Care Document ---
Author Name Unknown Address [address] [facility]. 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 Phone PCP, PATIENT DOES NOT HAVE A Primary Care Physic bala Unavailable Nidia SOLANO Attending Clinician Unavailable Nidia Goss Attending Clinician [phone] JOSE FRANCISCO WALTERS Attending Clinician Unavailable Jose Francisco Walters MD Attending Clinician [phone] CHAPITO CONTRERAS Attending Clinician Unavailable Chapito Contreras MD Attending Clinician [phone] LOREN TAM Attending Clinician Unavailable LOREN TAM Attending Clinician Unavailable Loren Tam DO Attending Clinician [phone] Doctor Unassigned, [place] Attending Clinician U Patrick Quiroz Attending Clinician [phone] PATRICK VERGARA Attending Clinician Unavailable SOFIA ESCOBAR Attending Clinician Unavailable SOFIA ESCOBAR Attending Clinician Unavailable MARIE MORALES Attending Clinician UnavailMarie Andrews DO Attending Clinician [phone] SAQIB CLARKE Attending Clinician Unavailable Saqib Clarke DO Attending Clinician [phone] BENJAMIN ASHFORD Attending Clinician Unavailable Benjamin Ashford MD Attending Clinician Geoff Cardona MD Attending Clinician [phone] GEOFF CARDONA Attending Clinician Unavailable Kiki Mathur MD Attending Clinician [phone] KIKI MATHUR Attending Clinician UnavailGricelda Sherman MD Attending Clinician [phone] JOSE FRANCISCO WALTERS Admitting Clinician Unavailable CHAPITO CONTRERAS Admitting Clinician Unavailable LOREN TAM Admitting Clinician Unavailable PATRICK VERGARA Admitting Clinician Unavailable Nidia SOLANO Admitting Clinician Unavailable MARIE MORALES Admitting Clinician UnavailGricelda Morales MD Admitting Clinician [phone] Payers Payer Name Policy Type Policy Number Effective Date Expirati on Date Source MEDICAID ALIEN PENDING PENDING 2023 00:00:00 [facility] [id number] 2023 00:00:00 Problems Condition Name Condition Details Condition Category Status Onset Date Resolution Date Last Treatment Date Treating Clinician Comments Source Obesity (BMI 30-39.9) Obesity (BMI 30-39.9) Disease Active 05-08 00:00: 00 [facility] Cigarette nicotine dependence without complicati on Cigarette nicotine dependence without complicati on Disease Active 2019-10 00:00: 00 [facility] Atypical chest pain Atypical chest pain Disease Active 2019-10 00:00: 00 [facility] Essential hypertensi on Essential hypertensi on Disease Active 2019-10 00:00: 00 [facility] No known active problems No known active problems Disease [facility] Allergies, Adverse Reactions, Alerts Allergy Name Allergy Type Status Severity Reaction(s) Onset Date Inactive Date Treating Clinician Comments Source Penicill in Propensi ty to adverse reaction s Active Unknown - See comments 03-30 00:00: 00 [facility] PENICILL IN DRUG INGREDI Active Unknown-Cmnt 03-30 00:00: 00 [facility] NO KNOWN ALLERGIE S Drug Class Active [facility] Social History Social Habit Start Date Stop Date Quantity Comments Source History of tobacco use Cigarette Smoker [facility] History SDOH Alcohol Frequency [facility] History SDOH Alcohol Std Drinks [facility] History SDOH Alcohol Binge [facility] Gender identity [facility] intake 2023-11-05 00:00:00 2023-11-05 00:00:00 Current drinker of alcohol (finding) [facility] Exposure to SARS-CoV-2 (event) 2023-02-10 00:00:00 2023-02-20 18:06:00 Not sure [facility] Cigarettes smoked current (pack per day) - Reported 2021-05-08 00:00:00 2021-05-08 00:00:00 [facility] Alcohol Comment 2021-05-08 00:00:00 2021-05-08 00:00:00 6beers on the weekend [facility] Tobacco use and exposure 2021-05-08 00:00:00 2021-05-08 00:00:00 Smokeless tobacco non-user [facility] History of Social function 2020-08-29 00:00:00 2020-08-29 00:00:00 [facility] Sex Assigned At 1975 00:00:00 1975 00:00:00 [facility] Smoking Status Start Date Stop Date Source Smokes tobacco daily 2021-05-08 00:00:00 [facility] Never smoker [facility] Unknown if ever smoked [facility] Medications Ordered Medication Name Filled Medication Name Start Date Stop Date Current Medication? Ordering Clinician Indication Dosage Frequency Signature (SIG) Comments Components Source maalox:diph enhydrAMINE :lidocaine 2 % viscous 1:1:1 (FIRST-MOUT HWASH BLM) oral suspension 15 mL 11-06 07:15: 00 11-06 07:38 :00 No 15mL 15 mL, Oral, ONCE, 1 dose, On Ale 11/06/23 at 0115, Routine [facility] famotidine (PEPCID (PF)) injection 20 mg 11-06 07:15: 00 11-06 07:38 :00 No 20mg 20 mg, Slow IV Push, ONCE, 1 dose, On Ale 11/06/23 at 0115, FAWN [facility] NaCl 0.9% (NS) bolus infusion 1,000 mL 11-06 07:15: 00 11-06 07:38 :00 No 1000mL at 999 mL/hr, 1,000 mL, IV Infusion, ONCE, 1 dose, On Ale 11/06/23 at 0115, STAT [facility] ondansetron (ZOFRAN (PF)) injection 4 mg 11-06 07:15: 00 11-06 06:19 :00 No 4mg 4 mg, Slow IV Push, ONCE, 1 dose, [facility]06/23 [facility] 0115[facility] (BENTYL) [facility] 20 mg 11-06 07:00: 00 11-06 07:00 :00 No 20mg 20 mg, Intramuscu lar, ONCE, 1 dose, On Ale 11/06/23 at 0100, Routine [facility] dicyclomine 20 mg tablet 11-06 00:00: 00 Yes 20mg Take 1 tablet by mouth 4 (four) times daily. Indication s: abdominal pain [facility] famotidine (PEPCID) 40 mg tablet 11-06 00:00: 00 Yes [id number] 40mg Take 1 tablet by mouth daily. [facility] acetaminoph en (TYLENOL) tablet 650 mg 11-01 09:30: 00 11-01 09:30 :00 No 650mg 650 mg, Oral, ONCE, 1 dose, [facility] 11/01/23 [facility] 0330, [facility] iop[facility] (ISOVUE 370-500 mL) injection 100 mL 11-01 09:30: 00 11-01 09:30 :00 No [id number] 100mL 100 mL, Intravenou s, ONCE, 1 dose, On 11/01/23 at 0330, Routine [facility] morpHINE (4 mg/mL) injection 4 mg 11-01 07:00: 00 11-01 06:56 :00 No 4mg 4 mg, Slow IV Push, ONCE, 1 dose, On 11/01/23 at 0100, STAT [facility] ketorolac (TORADOL) injection 30 mg 11-01 06:45: 00 11-01 06:00 :00 No 30mg 30 mg, Slow IV Push, ONCE, 1 dose, On 11/01/23 at 0045, FAWN [facility] NaCl 0.9% (NS) bolus infusion 1,000 mL 11-01 06:45: 00 11-01 07:59 :00 No 1000mL at 999 mL/hr, 1,000 mL, IV Piggyback, ONCE, 1 dose, On 11/01/23 at 0045, STAT [facility] ondansetron (ZOFRAN (PF)) injection 4 mg 11-01 06:00: 00 11-01 05:59 :00 No 4mg 4 mg, Slow IV Push, ONCE, 1 dose, On 11/01/23 at 0000, FAWN [facility] morpHINE (4 mg/mL) injection 4 mg 11-01 06:00: 00 11-01 06:00 :00 No 4mg 4 mg, Slow IV Push, ONCE, 1 dose, On 11/01/23 at 0000, STAT [facility] famotidine (PEPCID) 20 mg tablet 11-01 00:00: 00 Yes [id number] 20mg Take 1 tablet by mouth 2 (two) times daily. [facility] dicyclomine 20 mg tablet 11-01 00:00: 00 Yes [id number] 20mg Take 1 tablet by mouth 3 (three) times daily as needed for Abdominal pain. [facility] famotidine (PEPCID) 20 mg tablet 11-01 00:00: 00 Yes [id number] 20mg Take 1 tablet by mouth 2 (two) times daily. [facility] dicyclomine 20 mg tablet 1-13 00:00: 00 Yes [id number] 20mg Take 1 tablet by mouth 3 (three) times daily as needed for Abdominal pain. [facility] iopamidol (ISOVUE 370-500 mL) injection 100 mL 10-23 08:00: 00 10-23 08:00 :00 No [id number] 100mL 100 mL, Intravenou s, ONCE, 1 dose, On Ale 10/23/23 at 0200, Routine [facility] FENTanyl PF (SUBLIMAZE (PF)) injection 50 mcg 10-23 08:00: 00 10-23 07:01 :00 No 50ug 50 mcg, Slow IV Push, ONCE, 1 dose, On Ale 10/23/23 at 0200, Routine [facility] ketorolac (TORADOL) injection 30 mg 10-23 07:15: 00 10-23 06:08 :00 No 30mg 30 mg, Slow IV Push, ONCE, 1 dose, On Ale 10/23/23 at 0115, Routine [facility] ondansetron (ZOFRAN (PF)) injection 4 mg 10-23 06:15: 00 10-23 06:08 :00 No 4mg 4 mg, Slow IV Push, ONCE, 1 dose, On Ale 10/23/23 at 0015, FAWN [facility] ketorolac 10 mg tablet 10-23 00:00: 00 Yes [id number] 10mg Take 1 tablet by mouth every 6 (six) hours as needed for Pain (scale 7-10). [facility] ketorolac 10 mg tablet 04 00:00: 00 Yes [id number] 10mg Take 1 tablet by mouth every 6 (six) hours as needed for Pain (scale 7-10). [facility] ketorolac 10 mg tablet -04 00:00: 00 Yes [id number] 10mg Take 1 tablet by mouth every 6 (six) hours as needed for Pain (scale 7-10). [facility] iopamidol (ISOVUE 370-500 mL) injection 100 mL 2022-10 07:15: 00 09-26 07:15 :00 No [id number] 100mL 100 mL, Intravenou s, ONCE, 1 dose, On Fri09/26/23 at 0115, Routine [facility] ketorolac (TORADOL) injection 30 mg 2022-10 07:00: 00 09-26 06:12 :00 No 30mg 30 mg, Slow IV Push, ONCE, 1 dose, On Fri09/26/23 at 0100, Routine [facility] NaCl 0.9% (NS) bolus infusion 1,000 mL 2022-10 06:00: 00 09-26 06:15 :00 No 1000mL at 999 mL/hr, 1,000 mL, IV Infusion, ONCE, 1 dose, On Fri09/26/23 at 0000, FAWN [facility] morpHINE (4 mg/mL) injection 4 mg 2022-10 05:30: 00 09-26 05:19 :00 No 4mg 4 mg, Slow IV Push, ONCE, 1 dose, On Fri09/25/23 at 2330, STAT [facility] lactulose (CEPHULAC) solution 60 mL 2022-10 05:15: 00 09-26 05:13 :00 No 60mL 60 mL, Oral, ONCE, 1 dose, On Fri09/25/23 at 2315, FAWN [facility] ondansetron (ZOFRAN (PF)) injection 4 mg 2022-10 05:15: 00 09-26 05:13 :00 No 4mg 4 mg, Slow IV Push, ONCE, 1 dose, On Ale 09/25/23 at 2315, FAWN [facility] SEMAGLUTIDE , WEIGHT LOSS, [place] 2022-10 02:30: 30 Yes inject under the skin. [facility] SEMAGLUTIDE , WEIGHT LOSS, [place] 2022-10 02:30: 30 Yes inject under the skin. [facility] SEMAGLUTIDE , WEIGHT LOSS, [place] 2022-10 02:30: 30 Yes inject under the skin. [facility] SEMAGLUTIDE , WEIGHT LOSS, [place] 2022-10 02:30: 30 Yes inject under the skin. [facility] iopamidol (ISOVUE 370-500 mL) injection 75 mL 2022-10 09:00: 00 08-24 09:00 :00 Yes [id number] 75mL 75 mL, Intravenou s, ONCE, 1 dose, On 08/24/23 at 0300, Routine [facility] ondansetron (ZOFRAN (PF)) injection 4 mg 2022-10 06:30: 00 08-24 08:15 :00 No 4mg 4 mg, Slow IV Push, ONCE, 1 dose, On 08/24/23 at 0130, FAWN [facility] morpHINE (4 mg/mL) injection 4 mg 2022-10 06:30: 00 08-24 08:14 :00 No 4mg 4 mg, Slow IV Push, ONCE, 1 dose, On 08/24/23 at 0130, STAT [facility] aspirin tablet 325 mg 2022-10 05:15: 00 08-24 05:18 :00 No 325mg 325 mg, Oral, ONCE, 1 dose, On 08/24/23 at 0015, STAT [facility] ketorolac (TORADOL) injection 30 mg 07-07 10:45: 00 07-07 09:53 :00 No 30mg 30 mg, Slow IV Push, ONCE, 1 dose, On 07/07/23 at 0545, Routine [facility] metoclopram glenroy HCl (REGLAN) injection 10 mg 07-07 09:45: 00 07-07 09:54 :00 No 10mg 10 mg, Slow IV Push, ONCE, 1 dose, On 07/07/23 at 0445, FAWN [facility] butalbital- acetaminoph en-caff 50-325-40 mg tablet 18 00:00: 00 Yes [id number] 1{tbl} Take 1 tablet by mouth every 6 (six) hours as needed (Headache) . [facility] butalbital- acetaminoph en-caff 50-325-40 mg tablet 18 00:00: 00 Yes [id number] 1{tbl} Take 1 tablet by mouth every 6 (six) hours as needed (Headache) . [facility] butalbital- acetaminoph en-caff 50-325-40 mg tablet 18 00:00: 00 Yes [id number] 1{tbl} Take 1 tablet by mouth every 6 (six) hours as needed (Headache) . [facility] butalbital- acetaminoph en-caff 50-325-40 mg tablet 07-07 00:00: 00 Yes [id number] 1{tbl} Take 1 tablet by mouth every 6 (six) hours as needed (Headache) . [facility] butalbital- acetaminoph en-caff 50-325-40 mg tablet 07-07 00:00: 00 Yes [id number] 1{tbl} Take 1 tablet by mouth every 6 (six) hours as needed (Headache) . [facility] butalbital- acetaminoph en-caff 50-325-40 mg tablet 18 00:00: 00 Yes [id number] 1{tbl} Take 1 tablet by mouth every 6 (six) hours as needed (Headache) . [facility] butalbital- acetaminoph en-caff 50-325-40 mg tablet 18 00:00: 00 Yes [id number] 1{tbl} Take 1 tablet by mouth every 6 (six) hours as needed (Headache) . [facility] metFORMIN (GLUCOPHAGE ) tablet 500 mg 05-26 13:00: 00 Yes 500mg 500 mg, Oral, BID MEALS, First dose on Fri05/26/23 at 0800, Until Discontinu ed, Routine [facility] ketorolac (TORADOL) injection 15 mg 05-26 03:00: 00 05-26 02:19 :00 No 15mg 15 mg, Slow IV Push, ONCE, 1 dose, On Fri05/25/23 at 2200, [facility] nitroglycer in (NITROL) 2 % ointment 0.5 Inch 05-25 23:30: 00 05-26 01:27 :00 No .5[in_u s] 0.5 Inch, Transderma l (Apply To Skin), ONCE, 1 dose, On 05/25/23 at 1830, [facility] maalox:diph enhydrAMINE :lidocaine 2 % viscous 1:1:1 (FIRST-MOUT HWASH BLM) oral suspension 15 mL 05-25 23:30: 00 05-26 00:49 :00 No 15mL 15 mL, Oral (Swish & Swallow), ONCE, 1 dose, On 05/25/23 at 1830, Routine [facility] aspirin chewable tablet 324 mg 05-25 23:30: 00 05-25 22:24 :00 No 324mg 324 mg, Oral, ONCE, 1 dose, On 05/25/23 at 1830, Routine [facility] metFORMIN 500 mg tablet 05-25 00:00: 00 Yes [id number] 500mg Take 1 tablet by mouth 2 (two) times daily. [facility] naproxen (NAPROSYN) 500 mg tablet 05-25 00:00: 00 Yes [id number] 500mg Take 1 tablet by mouth 2 (two) times daily with meals. [facility] metFORMIN 500 mg tablet 05-25 00:00: 00 Yes [id number] 500mg Take 1 tablet by mouth 2 (two) times daily. [facility] naproxen (NAPROSYN) 500 mg tablet 05-25 00:00: 00 Yes [id number] 500mg Take 1 tablet by mouth 2 (two) times daily with meals. [facility] metFORMIN 500 mg tablet 05-25 00:00: 00 Yes [id number] 500mg Take 1 tablet by mouth 2 (two) times daily. [facility] naproxen (NAPROSYN) 500 mg tablet 2022-0 8-06 00:00: 00 Yes [id number] 500mg Take 1 tablet by mouth 2 (two) times daily with meals. [facility] metFORMIN 500 mg tablet 2022-0 8-06 00:00: 00 Yes [id number] 500mg Take 1 tablet by mouth 2 (two) times daily. [facility] naproxen (NAPROSYN) 500 mg tablet 2022-0 8- 00:00: 00 Yes [id number] 500mg Take 1 tablet by mouth 2 (two) times daily with meals. [facility] metFORMIN 500 mg tablet 2022-0 05-25 00:00: 00 Yes [id number] 500mg Take 1 tablet by mouth 2 (two) times daily. [facility] naproxen (NAPROSYN) 500 mg tablet 2022-0 8- 00:00: 00 Yes [id number] 500mg Take 1 tablet by mouth 2 (two) times daily with meals. [facility] metFORMIN 500 mg tablet 2022-0 8 00:00: 00 Yes [id number] 500mg Take 1 tablet by mouth 2 (two) times daily. [facility] naproxen (NAPROSYN) 500 mg tablet 2022-0 8 00:00: 00 Yes [id number] 500mg Take 1 tablet by mouth 2 (two) times daily with meals. [facility] metFORMIN 500 mg tablet 2022-0 8- 00:00: 00 Yes [id number] 500mg Take 1 tablet by mouth 2 (two) times daily. [facility] naproxen (NAPROSYN) 500 mg tablet 2022-0 8- 00:00: 00 Yes [id number] 500mg Take 1 tablet by mouth 2 (two) times daily with meals. [facility] metFORMIN 500 mg tablet 2022-0 8- 00:00: 00 Yes [id number] 500mg Take 1 tablet by mouth 2 (two) times daily. [facility] naproxen (NAPROSYN) 500 mg tablet 2022-0 8-06 00:00: 00 Yes [id number] 500mg Take 1 tablet by mouth 2 (two) times daily with meals. [facility] cloNIDine (CATAPRES) tablet 0.2 mg 02-21 00:45: 00 02-21 01:50 :00 No .2mg 0.2 mg, Oral, ONCE, 1 dose, On Ale 02/20/23 at 1945, FAWN [facility] ibuprofen (IBU) tablet 600 mg 02-20 23:30: 00 02-20 23:30 :00 No 600mg 600 mg, Oral, ONCE, 1 dose, On Ale 02/20/23 at 1830, FAWN [facility] ibuprofen 600 mg tablet 02-20 00:00: 00 Yes [id number] 600mg Take 1 tablet by mouth every 6 (six) hours as needed for Pain (scale 4-6) for up to 30 doses. [facility] ibuprofen 600 mg tablet 0 02-20 00:00: 00 Yes [id number] 600mg Take 1 tablet by mouth every 6 (six) hours as needed for Pain (scale 4-6) for up to 30 doses. [facility] ibuprofen 600 mg tablet 0 02-20 00:00: 00 Yes [id number] 600mg Take 1 tablet by mouth every 6 (six) hours as needed for Pain (scale 4-6) for up to 30 doses. [facility] ibuprofen 600 mg tablet 0 02-20 00:00: 00 Yes [id number] 600mg Take 1 tablet by mouth every 6 (six) hours as needed for Pain (scale 4-6) for up to 30 doses. [facility] ibuprofen 600 mg tablet 2022-0 02-20 00:00: 00 Yes [id number] 600mg Take 1 tablet by mouth every 6 (six) hours as needed for Pain (scale 4-6) for up to 30 doses. [facility] ibuprofen 600 mg tablet 2022-0 02-20 00:00: 00 Yes [id number] 600mg Take 1 tablet by mouth every 6 (six) hours as needed for Pain (scale 4-6) for up to 30 doses. [facility] ibuprofen 600 mg tablet 04 00:00: 00 Yes [id number] 600mg Take 1 tablet by mouth every 6 (six) hours as needed for Pain (scale 4-6) for up to 30 doses. [facility] ibuprofen 600 mg tablet 04 00:00: 00 Yes [id number] 600mg Take 1 tablet by mouth every 6 (six) hours as needed for Pain (scale 4-6) for up to 30 doses. [facility] ibuprofen 600 mg tablet 04 00:00: 00 Yes [id number] 600mg Take 1 tablet by mouth every 6 (six) hours as needed for Pain (scale 4-6) for up to 30 doses. [facility] iopamidol (ISOVUE 370-500 mL) injection 100 mL 12-29 09:15: 00 12-29 09:15 :00 No [id number] 100mL 100 mL, Intravenou s, ONCE, 1 dose, On Paulina 12/29/22 at 0415, Routine [facility] ketorolac (TORADOL) injection 30 mg 12-29 09:00: 00 12-29 07:53 :00 No 30mg 30 mg, Slow IV Push, ONCE, 1 dose, On Paulina 12/29/22 at 0400, Routine [facility] ketorolac 10 mg tablet 12-29 00:00: 00 Yes [id number] 10mg Take 1 tablet by mouth every 6 (six) hours as needed for Pain (scale 7-10). [facility] ondansetron (ZOFRAN) 4 mg tablet 12-29 00:00: 00 Yes [id number] 4mg Take 1 tablet by mouth every 8 (eight) hours as needed for Nausea and Vomiting (N/V). [facility] ketorolac 10 mg tablet 12 00:00: 00 Yes [id number] 10mg Take 1 tablet by mouth every 6 (six) hours as needed for Pain (scale 7-10). [facility] ondansetron (ZOFRAN) 4 mg tablet 2023-0 3-12 00:00: 00 Yes [id number] 4mg Take 1 tablet by mouth every 8 (eight) hours as needed for Nausea and Vomiting (N/V). [facility] 3-0 3-12 00:00: 00 Yes [id number] 10mg Take 1 tablet by mouth every 6 (six) hours as needed for Pain (scale 7-10). [facility] ondansetron (ZOFRAN) 4 mg tablet 3-0 3-12 00:00: 00 Yes [id number] 4mg Take 1 tablet by mouth every 8 (eight) hours as needed for Nausea and Vomiting (N/V). [facility] ketorolac 10 mg tablet 3-0 3-12 00:00: 00 Yes [id number] 10mg Take 1 tablet by mouth every 6 (six) hours as needed for Pain (scale 7-10). [facility] ondansetron (ZOFRAN) 4 mg tablet 3-0 3-12 00:00: 00 Yes [id number] 4mg Take 1 tablet by mouth every 8 (eight) hours as needed for Nausea and Vomiting (N/V). [facility] ketorolac 10 mg tablet 3-0 3-12 00:00: 00 Yes [id number] 10mg Take 1 tablet by mouth every 6 (six) hours as needed for Pain (scale 7-10). [facility] ondansetron (ZOFRAN) 4 mg tablet 3-0 3-12 00:00: 00 Yes [id number] 4mg Take 1 tablet by mouth every 8 (eight) hours as needed for Nausea and Vomiting (N/V). [facility] ketorolac 10 mg tablet 3-0 3-12 00:00: 00 Yes [id number] 10mg Take 1 tablet by mouth every 6 (six) hours as needed for Pain (scale 7-10). [facility] ondansetron (ZOFRAN) 4 mg tablet 3-0 3-12 00:00: 00 Yes [id number] 4mg Take 1 tablet by mouth every 8 (eight) hours as needed for Nausea and Vomiting (N/V). [facility] ketorolac 10 mg tablet 3-0 3-12 00:00: 00 Yes [id number] 10mg Take 1 tablet by mouth every 6 (six) hours as needed for Pain (scale 7-10). [facility] ondansetron (ZOFRAN) 4 mg tablet 3-0 3-12 00:00: 00 Yes [id number] 4mg Take 1 tablet by mouth every 8 (eight) hours as needed for Nausea and Vomiting (N/V). [facility] ketorolac 10 mg tablet 3-0 3-12 00:00: 00 Yes [id number] 10mg Take 1 tablet by mouth every 6 (six) hours as needed for Pain (scale 7-10). [facility] ondansetron (ZOFRAN) 4 mg tablet 2022-0 3-12 00:00: 00 Yes [id number] 4mg Take 1 tablet by mouth every 8 (eight) hours as needed for Nausea and Vomiting (N/V). [facility] ketorolac 10 mg tablet 2022-0 3-12 00:00: 00 Yes [id number] 10mg Take 1 tablet by mouth every 6 (six) hours as needed for Pain (scale 7-10). [facility] ondansetron (ZOFRAN) 4 mg tablet 2022-0 3-12 00:00: 00 Yes [id number] 4mg Take 1 tablet by mouth every 8 (eight) hours as needed for Nausea and Vomiting (N/V). [facility] ketorolac 10 mg tablet 3-0 3-12 00:00: 00 Yes [id number] 10mg Take 1 tablet by mouth every 6 (six) hours as needed for Pain (scale 7-10). [facility] ondansetron (ZOFRAN) 4 mg tablet 3-0 3-12 00:00: 00 Yes [id number] 4mg Take 1 tablet by mouth every 8 (eight) hours as needed for Nausea and Vomiting (N/V). [facility] ketorolac 10 mg tablet 3-0 3-12 00:00: 00 Yes [id number] 10mg Take 1 tablet by mouth every 6 (six) hours as needed for Pain (scale 7-10). [facility] ondansetron (ZOFRAN) 4 mg tablet 312 00:00: 00 Yes [id number] 4mg Take 1 tablet by mouth every 8 (eight) hours as needed for Nausea and Vomiting (N/V). [facility] maalox:diph enhydrAMINE :lidocaine 2 % viscous 1:1:1 (FIRST-MOUT HWASH [facility]) oral suspension 15 mL 11-21 08:45: 00 11-21 08:36 :00 No 15mL 15 mL, Oral, ONCE, 1 dose, On Ale 11/21/22 at 0245, Routine [facility] metoclopram glenroy HCl (REGLAN) tablet 10 mg 06-02 12:30: 00 Yes 10mg 10 mg, Oral, AC, First dose on 06/02/22 at 0730, Until Discontinu ed, Routine [facility] dexamethaso ne (DECADRON PHOSPHATE) injection 10 mg 06-02 06:00: 00 06-02 04:55 :00 No 10mg 10 mg, Oral, ONCE, 1 dose, On 06/02/22 at 0100, Routine [facility] butalbital- acetaminoph en-caff (ESGIC) 50-325-40 mg tablet 1 tablet 06-02 05:00: 00 06-02 04:56 :00 No 1{tbl} 1 tablet, Oral, ONCE, 1 dose, On 06/02/22 at 0000, [facility] diphenhydrA MINE (BENADRYL) tablet 50 mg 06-02 05:00: 00 06-02 04:54 :00 No 50mg 50 mg, Oral, ONCE, 1 dose, On 06/02/22 at 0000, [facility] levothyroxi ne (SYNTHROID) tablet 100 mcg 05-29 11:00: 00 Yes 100ug 100 mcg, Oral, QAM-0600, First dose on Fri05/29/22 at 0600, Until Discontinu ed, Routine [facility] levothyroxi ne 200 mcg tablet 05-28 13:18: 02 05-28 00:00 :00 No 300ug Take 300 mcg by mouth every morning. [facility] levothyroxi ne 300 mcg tablet 05-28 00:00: 00 08-27 05:59 :00 No [id number] 300ug Take 1 tablet by mouth every morning for 90 days. [facility] levothyroxi ne 300 mcg tablet 05-28 00:00: 00 08-27 05:59 :00 No [id number] 300ug Take 1 tablet by mouth every morning for 90 days. [facility] ketorolac (TORADOL) injection 15 mg 05-06 06:30: 00 05-06 05:30 :00 No 15mg 15 mg, Slow IV Push, ONCE, 1 dose, On Fri05/06/22 at 0130, [facility] iopamidol (ISOVUE 370-500 mL) injection 65 mL 05-06 06:00: 00 05-06 06:15 :00 No [id number] 65mL 65 mL, Intravenou s, ONCE, 1 dose, On Fri05/06/22 at 0115, Routine [facility] benzonatate 200 mg capsule 05-06 00:00: 00 Yes [id number] 200mg Take 1 capsule by mouth 3 (three) times daily as needed for Cough for up to 20 doses. [facility] ondansetron 4 mg disintegrat ing tablet 05-06 00:00: 00 Yes [id number] 4mg Take 1 tablet by mouth every 8 (eight) hours as needed for Nausea and Vomiting (N/V). [facility] benzonatate 200 mg capsule 05-06 00:00: 00 Yes [id number] 200mg Take 1 capsule by mouth 3 (three) times daily as needed for Cough for up to 20 doses. [facility] ondansetron 4 mg disintegrat ing tablet 05-06 00:00: 00 Yes [id number] 4mg Take 1 tablet by mouth every 8 (eight) hours as needed for Nausea and Vomiting (N/V). [facility] benzonatate 200 mg capsule 2021-0 18 00:00: 00 Yes [id number] 200mg Take 1 capsule by mouth 3 (three) times daily as needed for Cough for up to 20 doses. [facility] ondansetron 4 mg disintegrat ing tablet 2021-0 18 00:00: 00 Yes [id number] 4mg Take 1 tablet by mouth every 8 (eight) hours as needed for Nausea and Vomiting (N/V). [facility] benzonatate 200 mg capsule 2021-0 18 00:00: 00 Yes [id number] 200mg Take 1 capsule by mouth 3 (three) times daily as needed for Cough for up to 20 doses. [facility] ondansetron 4 mg disintegrat ing tablet 2021-0 18 00:00: 00 Yes [id number] 4mg Take 1 tablet by mouth every 8 (eight) hours as needed for Nausea and Vomiting (N/V). [facility] benzonatate 200 mg capsule 2021-0 18 00:00: 00 Yes [id number] 200mg Take 1 capsule by mouth 3 (three) times daily as needed for Cough for up to 20 doses. [facility] ondansetron 4 mg disintegrat ing tablet 2021-0 18 00:00: 00 Yes [id number] 4mg Take 1 tablet by mouth every 8 (eight) hours as needed for Nausea and Vomiting (N/V). [facility] benzonatate 200 mg capsule 2021-0 18 00:00: 00 Yes [id number] 200mg Take 1 capsule by mouth 3 (three) times daily as needed for Cough for up to 20 doses. [facility] ondansetron 4 mg disintegrat ing tablet 2021-0 -18 00:00: 00 Yes [id number] 4mg Take 1 tablet by mouth every 8 (eight) hours as needed for Nausea and Vomiting (N/V). [facility] benzonatate 200 mg capsule 2-0 -18 00:00: 00 Yes [id number] 200mg Take 1 capsule by mouth 3 (three) times daily as needed for Cough for up to 20 doses. [facility] ondansetron 4 mg disintegrat ing tablet 0 18 00:00: 00 Yes [id number] 4mg Take 1 tablet by mouth every 8 (eight) hours as needed for Nausea and Vomiting (N/V). [facility] ibuprofen 600 mg tablet 0 18 00:00: 00 Yes [id number] 600mg Take 1 tablet by mouth every 6 (six) hours as needed for Pain (scale 4-6). [facility] benzonatate 200 mg capsule 0 05-06 00:00: 00 Yes [id number] 200mg Take 1 capsule by mouth 3 (three) times daily as needed for Cough for up to 20 doses. [facility] ondansetron 4 mg disintegrat ing tablet 05-06 00:00: 00 Yes [id number] 4mg Take 1 tablet by mouth every 8 (eight) hours as needed for Nausea and Vomiting (N/V). [facility] ibuprofen 600 mg tablet 0 18 00:00: 00 Yes [id number] 600mg Take 1 tablet by mouth every 6 (six) hours as needed for Pain (scale 4-6). [facility] benzonatate 200 mg capsule 0 05-06 00:00: 00 Yes [id number] 200mg Take 1 capsule by mouth 3 (three) times daily as needed for Cough for up to 20 doses. [facility] ondansetron 4 mg disintegrat ing tablet 0 18 00:00: 00 Yes [id number] 4mg Take 1 tablet by mouth every 8 (eight) hours as needed for Nausea and Vomiting (N/V). [facility] ibuprofen 600 mg tablet 2021-0 18 00:00: 00 Yes [id number] 600mg Take 1 tablet by mouth every 6 (six) hours as needed for Pain (scale 4-6). [facility] benzonatate 200 mg capsule 2021-0 18 00:00: 00 Yes [id number] 200mg Take 1 capsule by mouth 3 (three) times daily as needed for Cough for up to 20 doses. [facility] ondansetron 4 mg disintegrat ing tablet 2021-0 18 00:00: 00 Yes [id number] 4mg Take 1 tablet by mouth every 8 (eight) hours as needed for Nausea and Vomiting (N/V). [facility] ibuprofen 600 mg tablet 2021-0 18 00:00: 00 Yes [id number] 600mg Take 1 tablet by mouth every 6 (six) hours as needed for Pain (scale 4-6). [facility] benzonatate 200 mg capsule 2021-0 18 00:00: 00 Yes [id number] 200mg Take 1 capsule by mouth 3 (three) times daily as needed for Cough for up to 20 doses. [facility] ondansetron 4 mg disintegrat ing tablet 0 18 00:00: 00 Yes [id number] 4mg Take 1 tablet by mouth every 8 (eight) hours as needed for Nausea and Vomiting (N/V). [facility] ibuprofen 600 mg tablet 2021-0 18 00:00: 00 Yes [id number] 600mg Take 1 tablet by mouth every 6 (six) hours as needed for Pain (scale 4-6). [facility] benzonatate 200 mg capsule 2021-0 18 00:00: 00 Yes [id number] 200mg Take 1 capsule by mouth 3 (three) times daily as needed for Cough for up to 20 doses. [facility] ondansetron 4 mg disintegrat ing tablet 2021-0 18 00:00: 00 Yes [id number] 4mg Take 1 tablet by mouth every 8 (eight) hours as needed for Nausea and Vomiting (N/V). [facility] ibuprofen 600 mg tablet 2021-0 18 00:00: 00 Yes [id number] 600mg Take 1 tablet by mouth every 6 (six) hours as needed for Pain (scale 4-6). [facility] benzonatate 200 mg capsule 2-0 -18 00:00: 00 Yes [id number] 200mg Take 1 capsule by mouth 3 (three) times daily as needed for Cough for up to 20 doses. [facility] ondansetron 4 mg disintegrat ing tablet 0 18 00:00: 00 Yes [id number] 4mg Take 1 tablet by mouth every 8 (eight) hours as needed for Nausea and Vomiting (N/V). [facility] ibuprofen 600 mg tablet 0 18 00:00: 00 Yes [id number] 600mg Take 1 tablet by mouth every 6 (six) hours as needed for Pain (scale 4-6). [facility] benzonatate 200 mg capsule 2021-0 18 00:00: 00 Yes [id number] 200mg Take 1 capsule by mouth 3 (three) times daily as needed for Cough for up to 20 doses. [facility] ondansetron 4 mg disintegrat ing tablet 05-06 00:00: 00 Yes [id number] 4mg Take 1 tablet by mouth every 8 (eight) hours as needed for Nausea and Vomiting (N/V). [facility] benzonatate 200 mg capsule 0 05-06 00:00: 00 Yes [id number] 200mg Take 1 capsule by mouth 3 (three) times daily as needed for Cough for up to 20 doses. [facility] ondansetron 4 mg disintegrat ing tablet 0 05-06 00:00: 00 Yes [id number] 4mg Take 1 tablet by mouth every 8 (eight) hours as needed for Nausea and Vomiting (N/V). [facility] benzonatate 200 mg capsule 2021-0 05-06 00:00: 00 Yes [id number] 200mg Take 1 capsule by mouth 3 (three) times daily as needed for Cough for up to 20 doses. [facility] ondansetron 4 mg disintegrat ing tablet 2021-0 18 00:00: 00 Yes [id number] 4mg Take 1 tablet by mouth every 8 (eight) hours as needed for Nausea and Vomiting (N/V). [facility] ibuprofen 600 mg tablet 2021-0 18 00:00: 00 02-20 00:00 :00 No [id number] 600mg Take 1 tablet by mouth every 6 (six) hours as needed for Pain (scale 4-6). [facility] molnupiravi r 200 mg capsule 05-06 00:00: 00 05-12 04:59 :00 No [id number] 800mg Take 4 capsules by mouth every 12 (twelve) hours for 5 days. [facility] magnesium sulfate in water 2 gram/50 mL (4 %) infusion 2 g 05-01 13:45: 00 05-01 14:06 :00 No 2g 2 g, IV Piggyback, Administer over 60 Minutes, ONCE, 1 dose, On Fri05/01/22 at 0845, Routine [facility] diphenhydrA MINE (BENADRYL) injection 50 mg 05-01 12:45: 00 05-01 12:43 :00 No 50mg 50 mg, Slow IV Push, ONCE, 1 dose, On Fri05/01/22 at 0745, STAT [facility] maalox:diph enhydrAMINE :lidocaine 2 % viscous 1:1:1 (FIRST-MOUT HWASH BLM) oral suspension 15 mL 02-08 07:15: 00 02-08 06:14 :00 No 15mL 15 mL, Oral, ONCE, 1 dose, On Fri02/08/22 at 0215, [facility] sucralfate 1 gram tablet 02-08 00:00: 00 Yes [id number] 1g Take 1 tablet by mouth before meals and at bedtime. [facility] ondansetron 4 mg disintegrat ing tablet 02-08 00:00: 00 Yes [id number] 4mg Take 1 tablet by mouth every 4 (four) hours as needed for Nausea and Vomiting (N/V). [facility] pantoprazol e 40 mg EC tablet 02-08 00:00: 00 Yes [id number] 40mg Take 1 tablet by mouth daily. [facility] sucralfate 1 gram tablet 02-08 00:00: 00 Yes [id number] 1g Take 1 tablet by mouth before meals and at bedtime. [facility] ondansetron 4 mg disintegrat ing tablet 0 02-08 00:00: 00 Yes [id number] 4mg Take 1 tablet by mouth every 4 (four) hours as needed for Nausea and Vomiting (N/V). [facility] pantoprazol e 40 mg EC tablet 0 02-08 00:00: 00 Yes [id number] 40mg Take 1 tablet by mouth daily. [facility] sucralfate 1 gram tablet 0 02-08 00:00: 00 Yes [id number] 1g Take 1 tablet by mouth before meals and at bedtime. [facility] ondansetron 4 mg disintegrat ing tablet 0 02-08 00:00: 00 Yes [id number] 4mg Take 1 tablet by mouth every 4 (four) hours as needed for Nausea and Vomiting (N/V). [facility] pantoprazol e 40 mg EC tablet 0 02-08 00:00: 00 Yes [id number] 40mg Take 1 tablet by mouth daily. [facility] sucralfate 1 gram tablet 0 02-08 00:00: 00 Yes [id number] 1g Take 1 tablet by mouth before meals and at bedtime. [facility] ondansetron 4 mg disintegrat ing tablet 0 02-08 00:00: 00 Yes [id number] 4mg Take 1 tablet by mouth every 4 (four) hours as needed for Nausea and Vomiting (N/V). [facility] pantoprazol e 40 mg EC tablet 0 02-08 00:00: 00 Yes [id number] 40mg Take 1 tablet by mouth daily. [facility] sucralfate 1 gram tablet 0 02-08 00:00: 00 Yes [id number] 1g Take 1 tablet by mouth before meals and at bedtime. [facility] ondansetron 4 mg disintegrat ing tablet 0 02-08 00:00: 00 Yes [id number] 4mg Take 1 tablet by mouth every 4 (four) hours as needed for Nausea and Vomiting (N/V). [facility] pantoprazol e 40 mg EC tablet 0 02-08 00:00: 00 Yes [id number] 40mg Take 1 tablet by mouth daily. [facility] sucralfate 1 gram tablet 0 02-08 00:00: 00 Yes [id number] 1g Take 1 tablet by mouth before meals and at bedtime. [facility] ondansetron 4 mg disintegrat ing tablet 0 02-08 00:00: 00 Yes [id number] 4mg Take 1 tablet by mouth every 4 (four) hours as needed for Nausea and Vomiting (N/V). [facility] pantoprazol e 40 mg EC tablet 0 02-08 00:00: 00 Yes [id number] 40mg Take 1 tablet by mouth daily. [facility] sucralfate 1 gram tablet 0 02-08 00:00: 00 Yes [id number] 1g Take 1 tablet by mouth before meals and at bedtime. [facility] ondansetron 4 mg disintegrat ing tablet 0 02-08 00:00: 00 Yes [id number] 4mg Take 1 tablet by mouth every 4 (four) hours as needed for Nausea and Vomiting (N/V). [facility] pantoprazol e 40 mg EC tablet 02-08 00:00: 00 Yes [id number] 40mg Take 1 tablet by mouth daily. [facility] sucralfate 1 gram tablet 0 02-08 00:00: 00 Yes [id number] 1g Take 1 tablet by mouth before meals and at bedtime. [facility] ondansetron 4 mg disintegrat ing tablet 0 02-08 00:00: 00 Yes [id number] 4mg Take 1 tablet by mouth every 4 (four) hours as needed for Nausea and Vomiting (N/V). [facility] pantoprazol e 40 mg EC tablet 0 02-08 00:00: 00 Yes [id number] 40mg Take 1 tablet by mouth daily. [facility] sucralfate 1 gram tablet 2021-0 02-08 00:00: 00 Yes [id number] 1g Take 1 tablet by mouth before meals and at bedtime. [facility] ondansetron 4 mg disintegrat ing tablet 2021-0 02-08 00:00: 00 Yes [id number] 4mg Take 1 tablet by mouth every 4 (four) hours as needed for Nausea and Vomiting (N/V). [facility] pantoprazol e 40 mg EC tablet 0 02-08 00:00: 00 Yes [id number] 40mg Take 1 tablet by mouth daily. [facility] sucralfate 1 gram tablet 0 02-08 00:00: 00 Yes [id number] 1g Take 1 tablet by mouth before meals and at bedtime. [facility] ondansetron 4 mg disintegrat ing tablet 0 02-08 00:00: 00 Yes [id number] 4mg Take 1 tablet by mouth every 4 (four) hours as needed for Nausea and Vomiting (N/V). [facility] pantoprazol e 40 mg EC tablet 0 02-08 00:00: 00 Yes [id number] 40mg Take 1 tablet by mouth daily. [facility] sucralfate 1 gram tablet 0 02-08 00:00: 00 Yes [id number] 1g Take 1 tablet by mouth before meals and at bedtime. [facility] ondansetron 4 mg disintegrat ing tablet 0 02-08 00:00: 00 Yes [id number] 4mg Take 1 tablet by mouth every 4 (four) hours as needed for Nausea and Vomiting (N/V). [facility] pantoprazol e 40 mg EC tablet 2021-0 02-08 00:00: 00 Yes [id number] 40mg Take 1 tablet by mouth daily. [facility] sucralfate 1 gram tablet 2021-0 02-08 00:00: 00 Yes [id number] 1g Take 1 tablet by mouth before meals and at bedtime. [facility] ondansetron 4 mg disintegrat ing tablet 2021-0 02-08 00:00: 00 Yes [id number] 4mg Take 1 tablet by mouth every 4 (four) hours as needed for Nausea and Vomiting (N/V). [facility] pantoprazol e 40 mg EC tablet 02-08 00:00: 00 Yes [id number] 40mg Take 1 tablet by mouth daily. [facility] sucralfate 1 gram tablet 02-08 00:00: 00 Yes [id number] 1g Take 1 tablet by mouth before meals and at bedtime. [facility] ondansetron 4 mg disintegrat ing tablet 02-08 00:00: 00 Yes [id number] 4mg Take 1 tablet by mouth every 4 (four) hours as needed for Nausea and Vomiting (N/V). [facility] pantoprazol e 40 mg EC tablet 02-08 00:00: 00 Yes [id number] 40mg Take 1 tablet by mouth daily. [facility] sucralfate 1 gram tablet 02-08 00:00: 00 Yes [id number] 1g Take 1 tablet by mouth before meals and at bedtime. [facility] ondansetron 4 mg disintegrat ing tablet 02-08 00:00: 00 Yes [id number] 4mg Take 1 tablet by mouth every 4 (four) hours as needed for Nausea and Vomiting (N/V). [facility] pantoprazol e 40 mg EC tablet 02-08 00:00: 00 Yes [id number] 40mg Take 1 tablet by mouth daily. [facility] sucralfate 1 gram tablet 02-08 00:00: 00 Yes [id number] 1g Take 1 tablet by mouth before meals and at bedtime. [facility] ondansetron 4 mg disintegrat ing tablet 02-08 00:00: 00 Yes [id number] 4mg Take 1 tablet by mouth every 4 (four) hours as needed for Nausea and Vomiting (N/V). [facility] pantoprazol e 40 mg EC tablet 02-08 00:00: 00 Yes [id number] 40mg Take 1 tablet by mouth daily. [facility] sucralfate 1 gram tablet 0 02-08 00:00: 00 Yes [id number] 1g Take 1 tablet by mouth before meals and at bedtime. [facility] ondansetron 4 mg disintegrat ing tablet 02-08 00:00: 00 Yes [id number] 4mg Take 1 tablet by mouth every 4 (four) hours as needed for Nausea and Vomiting (N/V). [facility] pantoprazol e 40 mg EC tablet 02-08 00:00: 00 Yes [id number] 40mg Take 1 tablet by mouth daily. [facility] sucralfate 1 gram tablet 02-08 00:00: 00 Yes [id number] 1g Take 1 tablet by mouth before meals and at bedtime. [facility] ondansetron 4 mg disintegrat ing tablet 02-08 00:00: 00 Yes [id number] 4mg Take 1 tablet by mouth every 4 (four) hours as needed for Nausea and Vomiting (N/V). [facility] pantoprazol e 40 mg EC tablet 02-08 00:00: 00 Yes [id number] 40mg Take 1 tablet by mouth daily. [facility] sucralfate 1 gram tablet 02-08 00:00: 00 Yes [id number] 1g Take 1 tablet by mouth before meals and at bedtime. [facility] ondansetron 4 mg disintegrat ing tablet 02-08 00:00: 00 Yes [id number] 4mg Take 1 tablet by mouth every 4 (four) hours as needed for Nausea and Vomiting (N/V). [facility] pantoprazol e 40 mg EC tablet 02-08 00:00: 00 Yes [id number] 40mg Take 1 tablet by mouth daily. [facility] maalox:diph enhydrAMINE :lidocaine 2 % viscous 1:1:1 (FIRST-MOUT HWASH BLM) oral suspension 15 mL 2020-10 02:15: 00 10-15 01:17 :00 No 15mL 15 mL, Oral, ONCE, 1 dose, On 10/14/21 at 2015, Routine [facility] iopamidol (ISOVUE 370-500 mL) injection 120 mL 2020-10 01:45: 00 10-15 00:37 :00 No [id number] 120mL 120 mL, Intravenou s, ONCE, 1 dose, On Fri10/14/21 at 1945, Routine [facility] famotidine (PEPCID (PF)) injection 20 mg 2020-10 00:30: 00 10-15 00:26 :00 No 20mg 20 mg, Slow IV Push, ONCE, 1 dose, On Fri10/14/21 at 1830, Routine [facility] enalapril 20 mg tablet 05-15 17:24: 35 Yes 25mg Take 25 mg by mouth daily. [facility] levothyroxi ne 200 mcg tablet 05-15 17:24: 35 Yes 300ug Take 300 mcg by mouth every morning. [facility] enalapril 20 mg tablet 05-15 12:24: 35 Yes 25mg Take 25 mg by mouth daily. [facility] enalapril 20 mg tablet 05-15 12:24: 35 Yes 25mg Take 25 mg by mouth daily. [facility] enalapril 20 mg tablet 05-15 12:24: 35 Yes 25mg Take 25 mg by mouth daily. [facility] enalapril 20 mg tablet 05-15 12:24: 35 Yes 25mg Take 25 mg by mouth daily. [facility] enalapril 20 mg tablet 05-15 12:24: 35 Yes 25mg Take 25 mg by mouth daily. [facility] enalapril 20 mg tablet 05-15 12:24: 35 Yes 25mg Take 25 mg by mouth daily. [facility] enalapril 20 mg tablet 05-15 12:24: 35 Yes 25mg Take 25 mg by mouth daily. [facility] levothyroxi ne 200 mcg tablet 05-15 12:24: 35 Yes 300ug Take 300 mcg by mouth every morning. [facility] enalapril 20 mg tablet 05-15 12:24: 35 Yes 25mg Take 25 mg by mouth daily. [facility] levothyroxi ne 200 mcg tablet 05-15 12:24: 35 Yes 300ug Take 300 mcg by mouth every morning. [facility] enalapril 20 mg tablet 05-15 12:24: 35 Yes 25mg Take 25 mg by mouth daily. [facility] levothyroxi ne 200 mcg tablet 05-15 12:24: 35 Yes 300ug Take 300 mcg by mouth every morning. [facility] enalapril 20 mg tablet 05-15 12:24: 35 Yes 25mg Take 25 mg by mouth daily. [facility] levothyroxi ne 200 mcg tablet 05-15 12:24: 35 Yes 300ug Take 300 mcg by mouth every morning. [facility] enalapril 20 mg tablet 05-15 12:24: 35 Yes 25mg Take 25 mg by mouth daily. [facility] enalapril 20 mg tablet 05-15 12:24: 35 Yes 25mg Take 25 mg by mouth daily. [facility] enalapril 20 mg tablet 05-15 12:24: 35 Yes 25mg Take 25 mg by mouth daily. [facility] enalapril 20 mg tablet 05-15 12:24: 35 Yes 25mg Take 25 mg by mouth daily. [facility] enalapril 20 mg tablet 05-15 12:24: 35 Yes 25mg Take 25 mg by mouth daily. [facility] enalapril 20 mg tablet 05-15 12:24: 35 Yes 25mg Take 25 mg by mouth daily. [facility] enalapril 20 mg tablet 05-15 12:24: 35 Yes 25mg Take 25 mg by mouth daily. [facility] enalapril 20 mg tablet 05-15 12:24: 35 Yes 25mg Take 25 mg by mouth daily. [facility] enalapril 20 mg tablet 05-15 12:24: 35 Yes 25mg Take 25 mg by mouth daily. [facility] FENTanyl (ACTIQ) lollipop 600 mcg 05-08 19:45: 00 05-08 18:59 :00 No [id number] 600ug 600 mcg, Buccal, ONCE, 1 dose, [facility] 05/08/21 at 1445, Routine [facility] sulfamethox azole-trime thoprim (BACTRIM DS) 800-160 mg per tablet 05-08 00:00: 00 05-16 04:59 :00 No [id number] 1{tbl} Take 1 tablet by mouth 2 (two) times daily for 7 days. [facility] sulfamethox azole-trime thoprim (BACTRIM DS) 800-160 mg per tablet 05-08 00:00: 00 05-16 04:59 :00 No [id number] 1{tbl} Take 1 tablet by mouth 2 (two) times daily for 7 days. [facility] HYDROcodone -acetaminop hen (NORCO) 10-325 mg tablet 1 tablet 05-06 09:45: 00 05-06 08:44 :00 No 1{tbl} 1 tablet, Oral, ONCE, 1 dose, [place] 05/06/21 at 0445, Routine [facility] sulfamethox azole-trime thoprim 800-160 mg per tablet 05-06 00:00: 00 Yes [id number] 1{tbl} Take 1 tablet by mouth every 12 (twelve) hours. [facility] sulfamethox azole-trime thoprim 800-160 mg per tablet 05-06 00:00: 00 Yes [id number] 1{tbl} Take 1 tablet by mouth every 12 (twelve) hours. [facility] sulfamethox azole-trime thoprim 800-160 mg per tablet 05-06 00:00: 00 Yes [id number] 1{tbl} Take 1 tablet by mouth every 12 (twelve) hours. [facility] sulfamethox azole-trime thoprim 800-160 mg per tablet 18 00:00: 00 Yes [id number] 1{tbl} Take 1 tablet by mouth every 12 (twelve) hours. [facility] sulfamethox azole-trime thoprim 800-160 mg per tablet 05-06 00:00: 00 Yes [id number] 1{tbl} Take 1 tablet by mouth every 12 (twelve) hours. [facility] sulfamethox azole-trime thoprim 800-160 mg per tablet 05-06 00:00: 00 Yes [id number] 1{tbl} Take 1 tablet by mouth every 12 (twelve) hours. [facility] sulfamethox azole-trime thoprim 800-160 mg per tablet 05-06 00:00: 00 Yes [id number] 1{tbl} Take 1 tablet by mouth every 12 (twelve) hours. [facility] sulfamethox azole-trime thoprim 800-160 mg per tablet 05-06 00:00: 00 Yes [id number] 1{tbl} Take 1 tablet by mouth every 12 (twelve) hours. [facility] sulfamethox azole-trime thoprim 800-160 mg per tablet 05-06 00:00: 00 Yes [id number] 1{tbl} Take 1 tablet by mouth every 12 (twelve) hours. [facility] sulfamethox azole-trime thoprim 800-160 mg per tablet 18 00:00: 00 Yes [id number] 1{tbl} Take 1 tablet by mouth every 12 (twelve) hours. [facility] sulfamethox azole-trime thoprim 800-160 mg per tablet 05-06 00:00: 00 Yes [id number] 1{tbl} Take 1 tablet by mouth every 12 (twelve) hours. [facility] sulfamethox azole-trime thoprim 800-160 mg per tablet 05-06 00:00: 00 Yes [id number] 1{tbl} Take 1 tablet by mouth every 12 (twelve) hours. [facility] sulfamethox azole-trime thoprim 800-160 mg per tablet 18 00:00: 00 Yes [id number] 1{tbl} Take 1 tablet by mouth every 12 (twelve) hours. [facility] sulfamethox azole-trime thoprim 800-160 mg per tablet 05-06 00:00: 00 Yes [id number] 1{tbl} Take 1 tablet by mouth every 12 (twelve) hours. [facility] sulfamethox azole-trime thoprim 800-160 mg per tablet 05-06 00:00: 00 Yes [id number] 1{tbl} Take 1 tablet by mouth every 12 (twelve) hours. [facility] sulfamethox azole-trime thoprim 800-160 mg per tablet 05-06 00:00: 00 Yes [id number] 1{tbl} Take 1 tablet by mouth every 12 (twelve) hours. [facility] sulfamethox azole-trime thoprim 800-160 mg per tablet 05-06 00:00: 00 Yes [id number] 1{tbl} Take 1 tablet by mouth every 12 (twelve) hours. [facility] sulfamethox azole-trime thoprim 800-160 mg per tablet 05-06 00:00: 00 Yes [id number] 1{tbl} Take 1 tablet by mouth every 12 (twelve) hours. [facility] sulfamethox azole-trime thoprim 800-160 mg per tablet 0 05-06 00:00: 00 Yes [id number] 1{tbl} Take 1 tablet by mouth every 12 (twelve) hours. [facility] sulfamethox azole-trime thoprim 800-160 mg per tablet 0 18 00:00: 00 Yes [id number] 1{tbl} Take 1 tablet by mouth every 12 (twelve) hours. [facility] sulfamethox azole-trime thoprim 800-160 mg per tablet 05-06 00:00: 00 Yes [id number] 1{tbl} Take 1 tablet by mouth every 12 (twelve) hours. [facility] sulfamethox azole-trime thoprim 800-160 mg per tablet 05-06 00:00: 00 Yes [id number] 1{tbl} Take 1 tablet by mouth every 12 (twelve) hours. [facility] HYDROcodone -acetaminop hen 5-325 mg tablet 05-06 00:00: 00 05-14 04:59 :00 No [id number] 1{tbl} Take 1 tablet by mouth every 4 (four) hours as needed for Pain (scale 7-10) for up to 7 days. Indication s: acute pain [facility] HYDROcodone -acetaminop hen 5-325 mg tablet 05-06 00:00: 00 05-14 04:59 :00 No [id number] 1{tbl} Take 1 tablet by mouth every 4 (four) hours as needed for Pain (scale 7-10) for up to 7 days. Indication s: acute pain [facility] ketorolac (TORADOL) injection 30 mg 03-15 06:30: 00 03-15 05:44 :00 No 30mg 30 mg, Slow IV Push, ONCE, 1 dose, [facility] 03/15/21 at 0130, Routine
pricing/signage team member approving Restricted medication : CHAPITO CONTRERAS [facility] enalapril 20 mg tablet 03-15 06:19: 47 Yes 25mg Take 25 mg by mouth daily. [facility] levothyroxi ne 200 mcg tablet 03-15 06:19: 47 Yes 300ug Take 300 mcg by mouth every morning. [facility] enalapril 20 mg tablet 03-15 06:19: 47 Yes 25mg Take 25 mg by mouth daily. [facility] levothyroxi ne 200 mcg tablet 03-15 06:19: 47 Yes 300ug Take 300 mcg by mouth every morning. [facility] enalapril 20 mg tablet 03-15 06:19: 47 Yes 25mg Take 25 mg by mouth daily. [facility] levothyroxi ne 200 mcg tablet 03-15 06:19: 47 Yes 300ug Take 300 mcg by mouth every morning. [facility] iopamidol (ISOVUE 370-500 mL) injection 120 mL 03-15 06:00: 00 03-15 06:00 :00 No [id number] 120mL 120 mL, Intravenou s, ONCE, 1 dose, [place] 03/15/21 at 0100, Routine [facility] KCL (KLOR-CON M20) tablet 40 mEq 03-15 05:45: 00 03-15 05:01 :00 No 40meq 40 mEq, Oral, ONCE, 1 dose, Ale 03/15/21 at 0045, Routine [facility] ondansetron (ZOFRAN (PF)) injection 4 mg 03-15 05:30: 00 03-15 04:32 :00 No 4mg 4 mg, Slow IV Push, ONCE, 1 dose, Ale 03/15/21 at 0030, FAWN [facility] FENTanyl PF (SUBLIMAZE (PF)) injection 75 mcg 03-15 05:30: 00 03-15 04:32 :00 No 75ug 75 mcg, Slow IV Push, ONCE, 1 dose, Ale 03/15/21 at 0030, Routine [facility] traMADoL (ULTRAM) 50 mg tablet 03-15 00:00: 00 Yes [id number] 50mg Take 1 tablet by mouth every 6 (six) hours as needed for Pain (scale 4-6) or Pain (scale 7-10). Indication s: acute pain [facility] methocarbam oL 500 mg tablet 03-15 00:00: 00 Yes [id number] 500mg Take 1 tablet by mouth every 6 (six) hours as needed (MUSCLE SPASM). [facility] traMADoL (ULTRAM) 50 mg tablet 03-15 00:00: 00 Yes [id number] 50mg Take 1 tablet by mouth every 6 (six) hours as needed for Pain (scale 4-6) or Pain (scale 7-10). Indication s: [facility] mg tablet 03-15 00:00: 00 Yes [id number] 500mg Take 1 tablet by mouth every 6 (six) hours as needed (MUSCLE SPASM). [facility] traMADoL (ULTRAM) 50 mg tablet 03-15 00:00: 00 Yes [id number] 50mg Take 1 tablet by mouth every 6 (six) hours as needed for Pain (scale 4-6) or Pain (scale 7-10). Indication s: acute pain [facility] methocarbam oL 500 mg tablet 03-15 00:00: 00 Yes [id number] 500mg Take 1 tablet by mouth every 6 (six) hours as needed (MUSCLE SPASM). [facility] traMADoL (ULTRAM) 50 mg tablet 03-15 00:00: 00 Yes [id number] 50mg Take 1 tablet by mouth every 6 (six) hours as needed for Pain (scale 4-6) or Pain (scale 7-10). Indication s: acute pain [facility] methocarbam oL 500 mg tablet 03-15 00:00: 00 Yes [id number] 500mg Take 1 tablet by mouth every 6 (six) hours as needed (MUSCLE SPASM). [facility] traMADoL (ULTRAM) 50 mg tablet 03-15 00:00: 00 Yes [id number] 50mg Take 1 tablet by mouth every 6 (six) hours as needed for Pain (scale 4-6) or Pain (scale 7-10). Indication s: acute pain [facility] methocarbam oL 500 mg tablet 03-15 00:00: 00 Yes [id number] 500mg Take 1 tablet by mouth every 6 (six) hours as needed (MUSCLE SPASM). [facility] traMADoL (ULTRAM) 50 mg tablet 03-15 00:00: 00 Yes [id number] 50mg Take 1 tablet by mouth every 6 (six) hours as needed for Pain (scale 4-6) or Pain (scale 7-10). Indication s: acute pain [facility] methocarbam oL 500 mg tablet 03-15 00:00: 00 Yes [id number] 500mg Take 1 tablet by mouth every 6 (six) hours as needed (MUSCLE SPASM). [facility] traMADoL (ULTRAM) 50 mg tablet 03-15 00:00: 00 Yes [id number] 50mg Take 1 tablet by mouth every 6 (six) hours as needed for Pain (scale 4-6) or Pain (scale 7-10). Indication s: acute pain [facility] ibuprofen 800 mg tablet 03-15 00:00: 00 Yes [id number] 800mg Take 1 tablet by mouth every 8 (eight) hours as needed for Pain (scale 4-6). [facility] methocarbam oL 500 mg tablet 03-15 00:00: 00 Yes [id number] 500mg Take 1 tablet by mouth every 6 (six) hours as needed (MUSCLE SPASM). [facility] traMADoL (ULTRAM) 50 mg tablet 03-15 00:00: 00 Yes [id number] 50mg Take 1 tablet by mouth every 6 (six) hours as needed for Pain (scale 4-6) or Pain (scale 7-10). Indication s: acute pain [facility] ibuprofen 800 mg tablet 03-15 00:00: 00 Yes [id number] 800mg Take 1 tablet by mouth every 8 (eight) hours as needed for Pain (scale 4-6). [facility] methocarbam oL 500 mg tablet 03-15 00:00: 00 Yes [id number] 500mg Take 1 tablet by mouth every 6 (six) hours as needed (MUSCLE SPASM). [facility] traMADoL (ULTRAM) 50 mg tablet 03-15 00:00: 00 Yes [id number] 50mg Take 1 tablet by mouth every 6 (six) hours as needed for Pain (scale 4-6) or Pain (scale 7-10). Indication s: acute pain [facility] ibuprofen 800 mg tablet 03-15 00:00: 00 Yes [id number] 800mg Take 1 tablet by mouth every 8 (eight) hours as needed for Pain (scale 4-6). [facility] methocarbam oL 500 mg tablet 03-15 00:00: 00 Yes [id number] 500mg Take 1 tablet by mouth every 6 (six) hours as needed (MUSCLE SPASM). [facility] traMADoL (ULTRAM) 50 mg tablet 03-15 00:00: 00 Yes [id number] 50mg Take 1 tablet by mouth every 6 (six) hours as needed for Pain (scale 4-6) or Pain (scale 7-10). Indication s: acute pain [facility] ibuprofen 800 mg tablet 03-15 00:00: 00 Yes [id number] 800mg Take 1 tablet by mouth every 8 (eight) hours as needed for Pain (scale 4-6). [facility] methocarbam oL 500 mg tablet 03-15 00:00: 00 Yes [id number] 500mg Take 1 tablet by mouth every 6 (six) hours as needed (MUSCLE SPASM). [facility] traMADoL (ULTRAM) 50 mg tablet 03-15 00:00: 00 Yes [id number] 50mg Take 1 tablet by mouth every 6 (six) hours as needed for Pain (scale 4-6) or Pain (scale 7-10). Indication s: acute pain [facility] ibuprofen 800 mg tablet 03-15 00:00: 00 Yes [id number] 800mg Take 1 tablet by mouth every 8 (eight) hours as needed for Pain (scale 4-6). [facility] methocarbam oL 500 mg tablet 03-15 00:00: 00 Yes [id number] 500mg Take 1 tablet by mouth every 6 (six) hours as needed (MUSCLE SPASM). [facility] traMADoL (ULTRAM) 50 mg tablet 03-15 00:00: 00 Yes [id number] 50mg Take 1 tablet by mouth every 6 (six) hours as needed for Pain (scale 4-6) or Pain (scale 7-10). Indication s: acute pain [facility] ibuprofen 800 mg tablet 03-15 00:00: 00 Yes [id number] 800mg Take 1 tablet by mouth every 8 (eight) hours as needed for Pain (scale 4-6). [facility] methocarbam oL 500 mg tablet 03-15 00:00: 00 Yes [id number] 500mg Take 1 tablet by mouth every 6 (six) hours as needed (MUSCLE SPASM). [facility] traMADoL (ULTRAM) 50 mg tablet 03-15 00:00: 00 Yes [id number] 50mg Take 1 tablet by mouth every 6 (six) hours as needed for Pain (scale 4-6) or Pain (scale 7-10). Indication s: acute pain [facility] ibuprofen 800 mg tablet 03-15 00:00: 00 Yes [id number] 800mg Take 1 tablet by mouth every 8 (eight) hours as needed for Pain (scale 4-6). [facility] methocarbam oL 500 mg tablet 03-15 00:00: 00 Yes [id number] 500mg Take 1 tablet by mouth every 6 (six) hours as needed (MUSCLE SPASM). [facility] traMADoL (ULTRAM) 50 mg tablet 03-15 00:00: 00 Yes [id number] 50mg Take 1 tablet by mouth every 6 (six) hours as needed for Pain (scale 4-6) or Pain (scale 7-10). Indication s: acute pain [facility] ibuprofen 800 mg tablet 03-15 00:00: 00 Yes [id number] 800mg Take 1 tablet by mouth every 8 (eight) hours as needed for Pain (scale 4-6). [facility] methocarbam oL 500 mg tablet 03-15 00:00: 00 Yes [id number] 500mg Take 1 tablet by mouth every 6 (six) hours as needed (MUSCLE SPASM). [facility] traMADoL (ULTRAM) 50 mg tablet 03-15 00:00: 00 Yes [id number] 50mg Take 1 tablet by mouth every 6 (six) hours as needed for Pain (scale 4-6) or Pain (scale 7-10). Indication s: acute pain [facility] ibuprofen 800 mg tablet 03-15 00:00: 00 Yes [id number] 800mg Take 1 tablet by mouth every 8 (eight) hours as needed for Pain (scale 4-6). [facility] methocarbam oL 500 mg tablet 03-15 00:00: 00 Yes [id number] 500mg Take 1 tablet by mouth every 6 (six) hours as needed (MUSCLE SPASM). [facility] traMADoL (ULTRAM) 50 mg tablet 03-15 00:00: 00 Yes [id number] 50mg Take 1 tablet by mouth every 6 (six) hours as needed for Pain (scale 4-6) or Pain (scale 7-10). Indication s: acute pain [facility] ibuprofen 800 mg tablet 03-15 00:00: 00 Yes [id number] 800mg Take 1 tablet by mouth every 8 (eight) hours as needed for Pain (scale 4-6). [facility] methocarbam oL 500 mg tablet 03-15 00:00: 00 Yes [id number] 500mg Take 1 tablet by mouth every 6 (six) hours as needed (MUSCLE SPASM). [facility] traMADoL (ULTRAM) 50 mg tablet 03-15 00:00: 00 Yes [id number] 50mg Take 1 tablet by mouth every 6 (six) hours as needed for Pain (scale 4-6) or Pain (scale 7-10). Indication s: acute pain [facility] ibuprofen 800 mg tablet 03-15 00:00: 00 Yes [id number] 800mg Take 1 tablet by mouth every 8 (eight) hours as needed for Pain (scale 4-6). [facility] methocarbam oL 500 mg tablet 03-15 00:00: 00 Yes [id number] 500mg Take 1 tablet by mouth every 6 (six) hours as needed (MUSCLE SPASM). [facility] traMADoL (ULTRAM) 50 mg tablet 03-15 00:00: 00 Yes [id number] 50mg Take 1 tablet by mouth every 6 (six) hours as needed for Pain (scale 4-6) or Pain (scale 7-10). Indication s: acute pain [facility] ibuprofen 800 mg tablet 03-15 00:00: 00 Yes [id number] 800mg Take 1 tablet by mouth every 8 (eight) hours as needed for Pain (scale 4-6). [facility] methocarbam oL 500 mg tablet 03-15 00:00: 00 Yes [id number] 500mg Take 1 tablet by mouth every 6 (six) hours as needed (MUSCLE SPASM). [facility] traMADoL (ULTRAM) 50 mg tablet 03-15 00:00: 00 Yes [id number] 50mg Take 1 tablet by mouth every 6 (six) hours as needed for Pain (scale 4-6) or Pain (scale 7-10). Indication s: acute pain [facility] ibuprofen 800 mg tablet 03-15 00:00: 00 Yes [id number] 800mg Take 1 tablet by mouth every 8 (eight) hours as needed for Pain (scale 4-6). [facility] methocarbam oL 500 mg tablet 03-15 00:00: 00 Yes [id number] 500mg Take 1 tablet by mouth every 6 (six) hours as needed (MUSCLE SPASM). [facility] traMADoL (ULTRAM) 50 mg tablet 03-15 00:00: 00 Yes [id number] 50mg Take 1 tablet by mouth every 6 (six) hours as needed for Pain (scale 4-6) or Pain (scale 7-10). Indication s: acute pain [facility] ibuprofen 800 mg tablet 03-15 00:00: 00 Yes [id number] 800mg Take 1 tablet by mouth every 8 (eight) hours as needed for Pain (scale 4-6). [facility] methocarbam oL 500 mg tablet 03-15 00:00: 00 Yes [id number] 500mg Take 1 tablet by mouth every 6 (six) hours as needed (MUSCLE SPASM). [facility] traMADoL (ULTRAM) 50 mg tablet 03-15 00:00: 00 Yes [id number] 50mg Take 1 tablet by mouth every 6 (six) hours as needed for Pain (scale 4-6) or Pain (scale 7-10). Indication s: acute pain [facility] methocarbam oL 500 mg tablet 03-15 00:00: 00 Yes [id number] 500mg Take 1 tablet by mouth every 6 (six) hours as needed (MUSCLE SPASM). [facility] traMADoL (ULTRAM) 50 mg tablet 03-15 00:00: 00 Yes [id number] 50mg Take 1 tablet by mouth every 6 (six) hours as needed for Pain (scale 4-6) or Pain (scale 7-10). Indication s: acute pain [facility] methocarbam oL 500 mg tablet 03-15 00:00: 00 Yes [id number] 500mg Take 1 tablet by mouth every 6 (six) hours as needed (MUSCLE SPASM). [facility] traMADoL (ULTRAM) 50 mg tablet 03-15 00:00: 00 Yes [id number] 50mg Take 1 tablet by mouth every 6 (six) hours as needed for Pain (scale 4-6) or Pain (scale 7-10). Indication s: acute pain [facility] methocarbam oL 500 mg tablet 03-15 00:00: 00 Yes [id number] 500mg Take 1 tablet by mouth every 6 (six) hours as needed (MUSCLE SPASM). [facility] ibuprofen 800 mg tablet 03-15 00:00: 00 02-20 00:00 :00 No [id number] 800mg Take 1 tablet by mouth every 8 (eight) hours as needed for Pain (scale 4-6). [facility] pantoprazol e (PROTONIX) 80 mg in NaCl 0.9% (NS) 20 mL syringe 2019-10 00:15: 00 09-08 23:17 :00 No 80mg 80 mg, IV Push, ONCE, 1 dose, Fri09/08/20 at 1815, 20 mL [facility] maalox:diph enhydrAMINE :lidocaine2 %viscous 1:1:1: suspension (COMPOUNDED ) 2019-10 00:15: 00 09-08 23:16 :00 No 15mL 15 mL, Oral, ONCE, 1 dose, Fri09/08/20 at 1815, Routine [facility] sucralfate 1 gram tablet 2019-10 00:00: 00 Yes [id number] 1g Take 1 tablet by mouth before meals and at bedtime. [facility] dicyclomine (BENTYL) 10 mg capsule 2019-10 00:00: 00 Yes [id number] 10mg Take 1 capsule by mouth every 8 (eight) hours as needed for Abdominal pain. [facility] ondansetron 4 mg disintegrat ing tablet 2019-10 00:00: 00 Yes [id number] 4mg Take 1 tablet by mouth every 8 (eight) hours as needed for Nausea and Vomiting (N/V). [facility] sucralfate 1 gram tablet 2019-10 00:00: 00 03-14 00:00 :00 No [id number] 1g Take 1 tablet by mouth before meals and at bedtime. [facility] dicyclomine (BENTYL) 10 mg capsule 2019-10 00:00: 00 03-14 00:00 :00 No [id number] 10mg Take 1 capsule by mouth every 8 (eight) hours as needed for Abdominal pain. [facility] ondansetron 4 mg disintegrat ing tablet 2019-10 00:00: 00 03-14 00:00 :00 No [id number] 4mg Take 1 tablet by mouth every 8 (eight) hours as needed for Nausea and Vomiting (N/V). [facility] omeprazole 20 mg capsule 2019-10 00:00: 00 10-09 05:59 :00 No [id number] 20mg Take 1 capsule by mouth daily for 30 days. [facility] ketorolac (TORADOL) injection 30 mg 2019-10 20:15: 00 09-06 19:14 :00 No 30mg 30 mg, Slow IV Push, ONCE, 1 dose, Fri09/06/20 at 1415, FAWN
Fa culty member approving Restricted medication : Nidia SOLANO [facility] FENTanyl PF (SUBLIMAZE (PF)) injection 50 mcg 2019-10 18:45: 00 09-06 17:38 :00 No 50ug 50 mcg, Slow IV Push, ONCE, 1 dose, Fri09/06/20 at 1245, STAT [facility] iohexol (OMNIPAQUE 350 BULK-500 mL) injection 150 mL 2019-10 18:15: 00 09-06 17:00 :00 No 150mL 150 mL, Intravenou s, ONCE, 1 dose, Fri09/06/20 at 1215, Routine [facility] ondansetron (ZOFRAN (PF)) injection 4 mg 2019-10 17:30: 00 09-06 16:33 :00 No 4mg 4 mg, Slow IV Push, ONCE, 1 dose, Fri09/06/20 at 1130, FAWN [facility] morpHINE injection 4 mg 2019-10 17:30: 00 09-06 16:33 :00 No 4mg 4 mg, Slow IV Push, ONCE, 1 dose, Fri09/06/20 at 1130, STAT [facility] ibuprofen 600 mg tablet 2019-10 00:00: 00 Yes [id number] 600mg Take 1 tablet by mouth every 6 (six) hours as needed for Pain (scale 4-6). [facility] ibuprofen 600 mg tablet 2019-10 00:00: 00 Yes [id number] 600mg Take 1 tablet by mouth every 6 (six) hours as needed for Pain (scale 4-6). [facility] ibuprofen 600 mg tablet 2019-10 00:00: 00 03-14 00:00 :00 No [id number] 600mg Take 1 tablet by mouth every 6 (six) hours as needed for Pain (scale 4-6). [facility] Polyethylen e Glycol 3350 (MIRALAX) powder 17 g 2019-10 13:00: 00 08-30 11:55 :00 No 17g 17 g, Oral, ONCE, 1 dose, Fri08/30/20 at 0700, Routine [facility] aspirin 81 mg chewable tablet 2019-10 00:00: 00 09-30 05:59 :00 No [id number] 81mg Take 1 tablet by mouth daily for 30 days. [facility] aspirin 81 mg chewable tablet 2019-10 00:00: 00 09-30 05:59 :00 No [id number] 81mg Take 1 tablet by mouth daily for 30 days. [facility] aspirin 81 mg chewable tablet 2019-10 00:00: 00 09-30 05:59 :00 No [id number] 81mg Take 1 tablet by mouth daily for 30 days. [facility] aspirin 81 mg chewable tablet 2019-10 00:00: 00 09-30 05:59 :00 No [id number] 81mg Take 1 tablet by mouth daily for 30 days. [facility] levothyroxi ne 125 mcg tablet 2019-10 23:22: 41 08-29 00:00 :00 No 300ug Take 300 mcg by mouth every morning. [facility] lisinopriL 30 mg tablet 2019-10 23:22: 41 08-29 00:00 :00 No 25mg Take 25 mg by mouth daily. [facility] ondansetron (ZOFRAN (PF)) injection 4 mg 2019-10 23:15: 07 08-31 23:14 :07 No 4mg 4 mg, Slow IV Push, Q6HPRN, Starting Fri08/29/20 at 1715, Until Fri08/31/20 at 1714, Routine, Nausea and Vomiting (N/V) [facility] morpHINE injection 2 mg 2019-10 22:49: 42 08-30 22:48 :42 No 2mg 2 mg, Slow IV Push, Q4HPRN, Starting Fri08/29/20 at 1649, Until Fri08/30/20 at 1648, Routine, Pain (scale 7-10) [facility] ondansetron (ZOFRAN (PF)) injection 4 mg 2019-10 18:03: 34 08-29 22:50 :21 No 4mg 4 mg, Slow IV Push, Q6HPRN, Starting Fri08/29/20 at 1203, Until Fri08/29/20 at 1650, Routine, Nausea and Vomiting (N/V) [facility] ibuprofen (IBU) tablet 600 mg 2019-10 18:00: 00 Yes 600mg 600 mg, Oral, Q6H, First dose on Fri08/29/20 at 1200, Until Discontinu ed, Routine [facility] acetaminoph en (TYLENOL) tablet 500 mg 2019-10 18:00: 00 Yes 500mg 500 mg, Oral, Q6H, First dose on Fri08/29/20 at 1200, Until Discontinu ed, Routine [facility] lactated ringers IV infusion 1,000 mL 2019-10 17:00: 00 Yes 1000mL at 75 mL/hr, 1,000 mL, IV Infusion, CONTINUOUS , Starting Fri08/29/20 at 1100, Until Discontinu ed, Routine, PACU [facility] FENTanyl PF (SUBLIMAZE (PF)) injection 25 mcg 2019-10 16:57: 53 08-29 17:58 :11 No 25ug 25 mcg, Slow IV Push, Q5MIN PRN, 4 doses, Starting Fri08/29/20 at 1057, Until Fri08/29/20 at 1158, Routine, Pain (scale 4-6), PACU [facility] ondansetron (ZOFRAN (PF)) injection 4 mg 2019-10 16:57: 53 08-29 17:13 :00 No 4mg 4 mg, Slow IV Push, PRN, 1 dose, Starting Fri08/29/20 at 1057, Until Fri08/29/20 at 1113, Routine, Nausea and Vomiting (N/V), PACU [facility] traMADoL (ULTRAM) tablet 100 mg 2019-10 16:11: 10 08-29 22:51 :09 No 100mg 100 mg, Oral, Q6HPRN, Starting Fri08/29/20 at 1011, Until Fri08/29/20 at 1651, Routine, Pain (scale 7-10) [facility] traMADoL (ULTRAM) tablet 50 mg 2019-10 16:10: 52 Yes 50mg 50 mg, Oral, Q6HPRN, Starting Fri08/29/20 at 1010, Until Discontinu ed, Routine, Pain (scale 4-6) [facility] acetaminoph en ADULT (OFIRMEV) injection 1,000 mg 2019-10 00:15: 00 08-29 16:11 :33 No 1000mg 1,000 mg, IV Infusion, Administer over 15 Minutes, Q6H ABX, 4 doses, First dose on Fri08/28/20 at 1815, Last dose on Fri08/29/20 at 1215, Routine
Indicatio n: Non-periop erative Patient
Approved by: Per Policy (NPO Status) [facility] metroNIDAZO LE in NaCl (iso-os) (FLAGYL I.V.) RTU IV infusion 500 mg 2019-10 00:15: 00 08-29 16:11 :42 No 500mg 500 mg, IV Infusion, Q8H ABX, First dose on Fri08/28/20 at 1815, Until Discontinu ed, 100 mL
Reas on for Anti-Infec tive: Empiric Therapy for Suspected Infection< br>Empiric Therapy Site: Abdominal< br>Duratio n of therapy: 7 days [facility] levoFLOXaci n in D5W (LEVAQUIN) 750 mg/150 mL Piggyback 750 mg 2019-10 00:15: 00 08-29 16:11 :42 No 750mg 750 mg, IV Piggyback, Administer over 90 Minutes, Q24H ABX, First dose on Fri08/28/20 at 1815, Until Discontinu ed, FAWN
Re ason for Anti-Infec tive: Empiric Therapy for Suspected Infection< br>Empiric Therapy Site: Abdominal< br>Duratio n of therapy: 72 hours [facility] levothyroxi ne 125 mcg tablet 2019-10 00:00: 00 09-29 05:59 :00 No [id number] 312.5ug Take 2.5 tablets by mouth every morning for 30 days. [facility] lisinopriL 30 mg tablet 2019-10 00:00: 09-29 05:59 :00 No [id number] 30mg Take 1 tablet by mouth daily for 30 days. [facility] [facility] pantop[facility]ol e (PROTONIX) 40 mg EC tablet 2019-10 00:00: 09-29 05:59 :00 No [id number] 40mg Take 1 tablet by mouth daily for 30 days. [facility] levothyroxi ne 125 mcg tablet 2019-10 00:00: 09-29 05:59 :00 No [id number] 312.5ug Take 2.5 tablets by mouth every morning for 30 days. [facility] lisinopriL 30 mg tablet 2019-10 00:00: 09-29 05:59 :00 No [id number] 30mg Take 1 tablet by mouth daily for 30 days. [facility] pantoprazol e (PROTONIX) 40 mg EC tablet 2019-10 00:00: 00 09-29 05:59 :00 No [id number] 40mg Take 1 tablet by mouth daily for 30 days. [facility] levothyroxi ne 125 mcg tablet 2019-10 00:00: 09-29 05:59 :00 No [id number] 312.5ug Take 2.5 tablets by mouth every morning for 30 days. [facility] lisinopriL 30 mg tablet 2019-10 00:00: 00 09-29 05:59 :00 No [id number] 30mg Take 1 tablet by mouth daily for 30 days. [facility] pantoprazol e (PROTONIX) 40 mg EC tablet 2019-10 00:00: 00 09-29 05:59 :00 No [id number] 40mg Take 1 tablet by mouth daily for 30 days. [facility] levothyroxi ne 125 mcg tablet 2019-10 00:00: 09-29 05:59 :00 No [id number] 312.5ug Take 2.5 tablets by mouth every morning for 30 days. [facility] lisinopriL 30 mg tablet 2019-10 00:00: 00 09-29 05:59 :00 No [id number] 30mg Take 1 tablet by mouth daily for 30 days. [facility] pantoprazol e (PROTONIX) 40 mg EC tablet 2019-10 00:00: 00 09-29 05:59 :00 No [id number] 40mg Take 1 tablet by mouth daily for 30 days. [facility] ibuprofen 800 mg tablet 2019-10 00:00: 00 09-04 05:59 :00 No [id number] 800mg Take 1 tablet by mouth every 8 (eight) hours as needed for Pain (scale 4-6) for up to 5 days. [facility] sulfur hexafluorid e microsphr (LUMASON) injection 5 mL 2019-10 21:30: 00 08-28 16:58 :00 No 5mL 5 mL, Intravenou s, ONCE, 1 dose, Fri08/28/20 at 1530, Routine
pricing/signage team member approving Restricted medication : DARIAN DAVENPORT [facility] morpHINE injection 4 mg 2019-10 20:09: 08 08-29 16:11 :42 No 4mg 4 mg, Slow IV Push, Q4HPRN, Starting Fri08/28/20 at 1409, Until Fri08/29/20 at 1011, Routine, Pain (scale 7-10) [facility] morpHINE injection 2 mg 2019-10 18:15: 00 08-28 17:20 :00 No 2mg 2 mg, Slow IV Push, ONCE, 1 dose, Fri08/28/20 at 1215, Routine [facility] levothyroxi ne (SYNTHROID) tablet 200 mcg 2019-10 12:00: 00 Yes 200ug 200 mcg, Oral, QAM-0600, First dose (after last modificati on) on Fri08/28/20 at 0600, Until Discontinu ed, Routine [facility] enoxaparin (LOVENOX) injection 40 mg 2019-10 23:00: 00 Yes 40mg 40 mg, Subcutaneo us, DAILY, First dose on 08/27/20 at 1700, Until Discontinu ed, Routine [facility] ketorolac (TORADOL) injection 30 mg 2019-10 15:45: 00 08-27 14:53 :00 No 30mg 30 mg, Slow IV Push, ONCE, 1 dose, 08/27/20 at 0945, Routine
pricing/signage team member approving Restricted medication : DOMINGO ANNE [facility] lisinopriL (PRINIVIL,Z ESTRIL) tablet 20 mg 2019-10 15:00: 00 Yes 20mg 20 mg, Oral, DAILY, First dose on 08/27/20 at 0900, Until Discontinu ed, Routine [facility] pantoprazol e (PROTONIX) EC tablet 40 mg 2019-10 15:00: 00 Yes 40mg 40 mg, Oral, DAILY, First dose on 08/27/20 at 0900, Until Discontinu ed, Routine [facility] aspirin chewable tablet 81 mg 2019-10 15:00: 00 Yes 81mg 81 mg, Oral, DAILY, First dose on 08/27/20 at 0900, Until Discontinu ed, Routine [facility] levothyroxi ne (SYNTHROID) tablet 300 mcg 2019-10 12:00: 00 08-27 14:38 :59 No 300ug 300 mcg, Oral, QAM-0600, First dose on 08/27/20 at 0600, Until Discontinu ed, Routine [facility] nicotine (NICODERM) 21 mg/24 hr patch 1 Patch 2019-10 08:30: 00 Yes 1{patch } 1 Patch, Topical, Administer over 24 Hours, Q24H, First dose on 08/27/20 at 0230, Until Discontinu ed, Routine [facility] acetaminoph en (TYLENOL) tablet 975 mg 2019-10 08:15: 00 08-27 07:56 :00 No 975mg 975 mg, Oral, ONCE, 1 dose, 08/27/20 at 0215, FAWN [facility] iohexol (OMNIPAQUE 350 BULK-100 mL) injection 120 mL 2019-10 07:45: 00 08-27 07:34 :00 No 120mL 120 mL, Intravenou s, ONCE, 1 dose, Paulina 08/27/20 at 0145, Routine [facility] traMADoL (ULTRAM) tablet 50 mg 2019-10 07:16: 43 08-29 07:15 :43 No 50mg 50 mg, Oral, Q8HPRN, Starting Paulina 08/27/20 at 0116, Until Tu08/29/20 at 0115, Routine, Pain (scale 4-6) [facility] acetaminoph en (TYLENOL) tablet 650 mg 2019-10 07:16: 41 08-28 23:11 :03 No 650mg 650 mg, Oral, Q6HPRN, Starting Paulina 08/27/20 at 0116, Until Fri08/28/20 at 1711, Routine, Pain (scale 1-3) [facility] morpHINE injection 2 mg 2019-10 07:14: 54 08-28 20:09 :18 No 2mg 2 mg, Slow IV Push, Q4HPRN, Starting Paulina 08/27/20 at 0114, Until Fri08/28/20 at 1409, Routine, Pain (scale 7-10) [facility] nitroglycer in (NITROSTAT) sublingual tablet 0.4 mg 2019-10 07:03: 30 Yes .4mg 0.4 mg, Sublingual , Q5MIN PRN, Starting Paulina 08/27/20 at 0103, Until Discontinu ed, Routine, Chest pain [facility] alum-mag hydroxide-s imeth (MAALOX PLUS / MAG-AL PLUS) 200-200-20 mg/5 mL suspension 30 mL 2019-10 07:02: 48 Yes 30mL 30 mL, Oral, Q6HPRN, Starting Paulina 08/27/20 at 0102, Until Discontinu ed, Routine, Indigestio n [facility] aspirin tablet 325 mg 2019-10 07:00: 00 08-27 06:16 :00 No 325mg 325 mg, Oral, ONCE, 1 dose, 08/27/20 at 0100, STAT [facility] nitroglycer in (NITROSTAT) sublingual tablet 0.4 mg 2019-10 07:00: 00 08-27 06:16 :00 No .4mg 0.4 mg, Sublingual , ONCE, 1 dose, 08/27/20 [facility] 0100[facility] 324 mg 07-10 14:00: 00 Yes 324mg 324 mg, Oral, DAILY, First dose on Fri07/10/20 at 0900, Until Discontinu ed, Routine [facility] iohexol (OMNIPAQUE 350 BULK-100 mL) injection 120 mL 07-10 05:15: 00 07-10 05:08 :00 No 120mL 120 mL, Intravenou s, ONCE, 1 dose, Fri07/10/20 at 0015, Routine [facility] codeine-gua ifenesin (ROBITUSSIN AC) 10-100 mg/5 mL solution 10 mL 07-10 04:30: 00 07-10 03:23 :00 No 10mL 10 mL, Oral, ONCE, 1 dose, 07/09/20 at 2330, [facility] LORazepam (ATIVAN) injection 1 mg 07-10 03:45: 00 07-10 03:14 :00 No 1mg 1 mg, Slow IV Push, ONCE, 1 dose, 07/09/20 at 2245, STAT [facility] morpHINE injection 4 mg 07-10 03:30: 00 07-10 03:16 :00 No 4mg 4 mg, Slow IV Push, ONCE, 1 dose, 07/09/20 at 2230, STAT [facility] pantoprazol e (PROTONIX) 40 mg in NaCl 0.9% (NS) 100 mL MINI-BAG 07-10 02:30: 00 07-10 01:48 :00 No 40mg 40 mg, IV Piggyback, ONCE, 1 dose, 07/09/20 at 2130, 100 mL [facility] ondansetron (ZOFRAN (PF)) injection 4 mg 07-10 02:00: 00 07-10 01:03 :00 No 4mg 4 mg, Slow IV Push, ONCE, 1 dose, 07/09/20 at 2100, FAWN [facility] morpHINE injection 4 mg 07-10 02:00: 07-10 01:03 :00 No 4mg 4 mg, Slow IV Push, ONCE, 1 dose, 07/09/20 at 2100, STAT [facility] nitroglycer in (NITROSTAT) sublingual tablet 0.4 mg 07-10 02:00: 00 07-10 01:02 :00 No .4mg 0.4 mg, Sublingual , ONCE, 1 dose, 07/09/20 at 2100, FAWN [facility] pantoprazol e (PROTONIX) 40 mg EC tablet 07-10 00:00: 00 Yes [id number] 40mg Take 1 tablet by mouth daily. [facility] dicyclomine 20 mg tablet 07-10 00:00: 00 Yes [id number] 20mg Take 1 tablet by mouth every 6 (six) hours as needed for Abdominal pain. [facility] benzonatate 200 mg capsule 07-10 00:00: 00 Yes [id number] 200mg Take 1 capsule by mouth 3 (three) times daily as needed for Cough. [facility] pantoprazol e (PROTONIX) 40 mg EC tablet 07-10 00:00: 08-29 00:00 :00 No [id number] 40mg Take 1 tablet by mouth daily. [facility] dicyclomine 20 mg tablet 07-10 00:00: 08-29 00:00 :00 No [id number] 20mg Take 1 tablet by mouth every 6 (six) hours as needed for Abdominal pain. [facility] benzonatate 200 mg capsule 07-10 00:00: 08-29 00:00 :00 No [id number] 200mg Take 1 capsule by mouth 3 (three) times daily as needed for Cough. [facility] ibuprofen 800 mg tablet 2018-10 00:00: 00 Yes [id number] 800mg Take 1 tablet by mouth every 8 (eight) hours as needed for Pain (scale 4-6). [facility] ibuprofen 800 mg tablet 2018-10 00:00: 08-29 00:00 :00 No [id number] 800mg Take 1 tablet by mouth every 8 (eight) hours as needed for Pain (scale 4-6). [facility] cyclobenzap rine 5 mg tablet 03-30 00:00: 00 Yes [id number] 5mg Take 1 tablet by mouth 3 (three) times daily as needed for Muscle Spasms. [facility] cyclobenzap rine 5 mg tablet 03-30 00:00: 08-29 00:00 :00 No [id number] 5mg Take 1 tablet by mouth 3 (three) times daily as needed for Muscle Spasms. [facility] LORazepam (ATIVAN) 0.5 mg tablet 06-14 00:00: 00 Yes .5mg Take 1 tablet by mouth 2 (two) times daily as needed for Anxiety. [facility] LORazepam (ATIVAN) 0.5 mg tablet 06-14 00:00: 08-29 00:00 :00 No .5mg Take 1 tablet by mouth 2 (two) times daily as needed for Anxiety. [facility] levothyroxi ne 125 mcg tablet 05-11 10:32: 30 Yes 125ug Take 125 mcg by mouth every morning. [facility] Vital Signs Vital Name Observation Time Observation Value Comments S heather Systolic blood pressure 2023-11-06 08:00:00 117 mm[Hg] [facility] Diastolic blood pressure 2023-11-06 08:00:00 75 mm[Hg] [facility] Heart rate 2023-11-06 08:00:00 80 /min [facility] Body temperature 2023-11-06 08:00:00 37 Nano [facility] Respiratory rate 2023-11-06 08:00:00 18 /min [facility] Oxygen saturation in Arterial blood by Pulse oximetry 2023-11-06 08:00:00 97 /min [facility] Body height 2023-11-06 05:50:00 172.7 cm [facility] Body weight 2023-11-06 05:50:00 113.309 kg [facility] BMI 2023-11-06 05:50:00 37.98 kg/m2 [facility] Systolic blood pressure 2023-11-01 10:00:00 142 mm[Hg] [facility] Diastolic blood pressure 2023-11-01 10:00:00 81 mm[Hg] [facility] Heart rate 2023-11-01 10:00:00 79 /min [facility] Body temperature 2023-11-01 10:00:00 37.17 Nano [facility] Respiratory rate 2023-11-01 10:00:00 16 /min [facility] Oxygen saturation in Arterial blood by Pulse oximetry 2023-11-01 10:00:00 94 /min [facility] Body height 2023-11-01 05:37:00 172.7 cm [facility] Body weight 2023-11-01 05:37:00 111.131 kg [facility] BMI 2023-11-01 05:37:00 37.25 kg/m2 [facility] Systolic blood pressure 2023-10-23 08:00:00 140 mm[Hg] [facility] Diastolic blood pressure 2023-10-23 08:00:00 88 mm[Hg] [facility] Heart rate 2023-10-23 08:00:00 89 /min [facility] Oxygen saturation in Arterial blood by Pulse oximetry 2023-10-23 08:00:00 94 /min [facility] Respiratory rate 2023-10-23 05:53:00 16 /min [facility] Body temperature 2023-10-23 05:45:00 36.72 Nano [facility] Body height 2023-10-23 05:45:00 172.7 cm [facility] Body weight 2023-10-23 05:45:00 113.399 kg [facility] BMI 2023-10-23 05:45:00 38.01 kg/m2 [facility] Systolic blood pressure 2023-09-26 08:00:00 159 mm[Hg] [facility] Diastolic blood pressure 2023-09-26 08:00:00 80 mm[Hg] [facility] Heart rate 2023-09-26 08:00:00 75 /min [facility] Respiratory rate 2023-09-26 08:00:00 20 /min [facility] Oxygen saturation in Arterial blood by Pulse oximetry 2023-09-26 08:00:00 94 /min [facility] Body temperature 2023-09-26 05:02:00 36.72 Nano [facility] Systolic blood pressure 2023-08-24 08:14:00 140 mm[Hg] [facility] Diastolic blood pressure 2023-08-24 08:14:00 73 mm[Hg] [facility] Heart rate 2023-08-24 08:14:00 75 /min [facility] Body temperature 2023-08-24 08:14:00 36.67 Nano [facility] Respiratory rate 2023-08-24 08:14:00 18 /min [facility] Oxygen saturation in Arterial blood by Pulse oximetry 2023-08-24 08:14:00 96 /min [facility] Body height 2023-08-24 03:41:00 172.7 cm [facility] Body weight 2023-08-24 03:41:00 113.399 kg [facility] BMI 2023-08-24 03:41:00 38.01 kg/m2 [facility] Systolic blood pressure 2023-07-07 10:53:00 140 mm[Hg] [facility] Diastolic blood pressure 2023-07-07 10:53:00 83 mm[Hg] [facility] Heart rate 2023-07-07 10:53:00 75 /min [facility] Respiratory rate 2023-07-07 10:53:00 16 /min [facility] Oxygen saturation in Arterial blood by Pulse oximetry 2023-07-07 10:53:00 97 /min [facility] Body temperature 2023-07-07 08:57:00 36.44 Nano [facility] Body height 2023-07-07 08:57:00 172.7 cm [facility] Body weight 2023-07-07 08:57:00 113.399 kg [facility] BMI 2023-07-07 08:57:00 38.01 kg/m2 [facility] Oxygen saturation in Arterial blood by Pulse oximetry 2023-05-26 03:30:00 94 /min [facility] Systolic blood pressure 2023-05-26 03:30:00 140 mm[Hg] [facility] Diastolic blood pressure 2023-05-26 03:30:00 78 mm[Hg] [facility] Heart rate 2023-05-26 03:30:00 80 /min [facility] Respiratory rate 2023-05-26 03:30:00 23 /min [facility] Body temperature 2023-05-26 03:00:00 36.78 Nano [facility] Body weight 2023-05-25 22:19:00 121.564 kg [facility] BMI 2023-05-25 22:19:00 40.75 kg/m2 [facility] Systolic blood pressure 2023-02-21 01:51:00 123 mm[Hg] [facility] Diastolic blood pressure 2023-02-21 01:51:00 74 mm[Hg] [facility] Heart rate 2023-02-20 23:03:00 95 /min [facility] Body temperature 2023-02-20 23:03:00 38.28 Nano [facility] Respiratory rate 2023-02-20 23:03:00 18 /min [facility] Body height 2023-02-20 23:03:00 172.7 cm [facility] Body weight 2023-02-20 23:03:00 121.564 kg [facility] BMI 2023-02-20 23:03:00 40.75 [facility] in Arterial blood by Pulse oximetry 2023-02-20 23:03:00 97 /min [facility] Systolic blood pressure 2022-12-29 10:00:00 142 mm[Hg] [facility] Diastolic blood pressure 2022-12-29 10:00:00 78 mm[Hg] [facility] Heart rate 2022-12-29 10:00:00 71 /min [facility] Oxygen saturation in Arterial blood by Pulse oximetry 2022-12-29 09:57:00 96 /min [facility] Body temperature 2022-12-29 06:35:00 36.89 Nano [facility] Respiratory rate 2022-12-29 06:35:00 20 /min [facility] Body height 2022-12-29 06:35:00 172.7 cm [facility] weight 2022-12-29 06:35:00 121.745 kg [facility] BMI 2022-12-29 06:35:00 40.81 kg/m2 [facility] Systolic blood pressure 2022-11-21 08:14:00 162 mm[Hg] [facility] Diastolic blood pressure 2022-11-21 08:14:00 101 mm[Hg] [facility] Heart rate 2022-11-21 08:09:00 92 /min [facility] 2022-11-21 08:09:00 37.11 Nano [facility] Respiratory rate 2022-11-21 08:09:00 16 /min [facility] Body height 2022-11-21 08:09:00 172.7 cm [facility] Body weight 2022-11-21 08:09:00 115.667 kg [facility] BMI 2022-11-21 08:09:00 38.77 kg/m2 [facility] Oxygen saturation in Arterial blood by Pulse oximetry 2022-11-21 08:09:00 97 /min [facility] Systolic blood pressure 2022-10-29 07:34:00 167 mm[Hg] [facility] Diastolic blood pressure 2022-10-29 07:34:00 97 mm[Hg] [facility] Heart rate 2022-10-29 07:34:00 93 /min [facility] Body temperature 2022-10-29 07:34:00 37.39 Nano [facility] Respiratory rate 2022-10-29 07:34:00 20 /min [facility] Body height 2022-10-29 07:34:00 172.7 cm [facility] Body weight 2022-10-29 07:34:00 113.399 kg [facility] BMI 2022-10-29 07:34:00 38.01 kg/m2 [facility] Oxygen saturation in Arterial blood by Pulse oximetry 2022-10-29 07:34:00 97 /min [facility] Systolic blood pressure 2022-06-02 05:00:00 165 mm[Hg] [facility] Diastolic blood pressure 2022-06-02 05:00:00 119 mm[Hg] [facility] Heart rate 2022-06-02 05:00:00 74 /min [facility] Respiratory rate 2022-06-02 05:00:00 23 /min [facility] Oxygen saturation in Arterial blood by Pulse oximetry 2022-06-02 05:00:00 95 /min [facility] Body temperature 2022-06-02 04:41:00 36.67 Nano [facility] Systolic blood pressure 2022-05-28 18:36:21 147 mm[Hg] [facility] Diastolic blood pressure 2022-05-28 18:36:21 97 mm[Hg] [facility] Heart rate 2022-05-28 18:36:21 62 /min [facility] Respiratory rate 2022-05-28 18:36:21 18 /min [facility] Oxygen saturation in Arterial blood by Pulse oximetry 2022-05-28 18:36:21 96 /min [facility] Body temperature 2022-05-28 15:06:00 37.22 [facility] Body height 2022-05-28 15:06:00 172.7 cm [facility] Body weight 2022-05-28 15:06:00 124.739 kg [facility] BMI 2022-05-28 15:06:00 41.81 kg/m2 [facility] Systolic blood pressure 2022-05-06 06:42:00 137 mm[Hg] [facility] Diastolic blood pressure 2022-05-06 06:42:00 90 mm[Hg] [facility] Heart rate 2022-05-06 06:42:00 81 /min [facility] Respiratory rate 2022-05-06 06:42:00 16 /min [facility] Oxygen saturation in Arterial blood by Pulse oximetry 2022-05-06 06:42:00 94 /min [facility] Body temperature 2022-05-06 03:30:00 36.78 [facility] Body height 2022-05-06 03:30:00 172.7 cm [facility] Body weight 2022-05-06 03:30:00 117.935 kg [facility] BMI 2022-05-06 03:30:00 39.53 kg/m2 [facility] Systolic blood pressure 2022-05-01 13:30:00 147 mm[Hg] [facility] Diastolic blood pressure 2022-05-01 13:30:00 91 mm[Hg] [facility] Heart rate 2022-05-01 13:30:00 73 /min [facility] Respiratory rate 2022-05-01 13:30:00 17 /min [facility] Oxygen saturation in Arterial blood by Pulse oximetry 2022-05-01 13:30:00 95 /min [facility] Body temperature 2022-05-01 12:28:00 36.78 Nano [facility] Body weight 2022-05-01 12:28:00 121.564 kg [facility] BMI 2022-05-01 12:28:00 40.75 kg/m2 [facility] Systolic blood pressure 2022-02-08 07:00:00 133 mm[Hg] [facility] Diastolic blood pressure 2022-02-08 07:00:00 94 mm[Hg] [facility] Heart rate 2022-02-08 07:00:00 77 /min [facility] Respiratory rate 2022-02-08 07:00:00 21 /min [facility] Oxygen saturation in Arterial blood by Pulse oximetry 2022-02-08 07:00:00 95 /min [facility] Body temperature 2022-02-08 06:04:00 36.5 Nano [facility] Body height 2022-02-08 06:04:00 172.7 cm [facility] Body weight 2022-02-08 06:04:00 113.399 kg [facility] BMI 2022-02-08 06:04:00 38.01 kg/m2 [facility] Systolic blood pressure 2021-10-14 22:36:00 152 mm[Hg] [facility] Diastolic blood pressure 2021-10-14 22:36:00 87 mm[Hg] [facility] Heart rate 2021-10-14 22:36:00 95 /min [facility] Body temperature 2021-10-14 22:36:00 36.94 Nano [facility] Respiratory rate 2021-10-14 22:36:00 18 /min [facility] Body weight 2021-10-14 22:36:00 122.29 kg [facility] BMI 2021-10-14 22:36:00 40.99 kg/m2 [facility] Oxygen saturation in Arterial blood by Pulse oximetry 2021-10-14 22:36:00 97 /min [facility] Systolic blood pressure 2021-05-15 17:15:00 148 mm[Hg] [facility] Diastolic blood pressure 2021-05-15 17:15:00 84 mm[Hg] [facility] Heart rate 2021-05-15 17:15:00 99 /min [facility] Body temperature 2021-05-15 17:15:00 36.5 Nano [facility] Respiratory rate 2021-05-15 17:15:00 20 /min [facility] Body weight 2021-05-15 17:15:00 117.073 kg [facility] BMI 2021-05-15 17:15:00 39.24 kg/m2 [facility] Oxygen saturation in Arterial blood by Pulse oximetry 2021-05-15 17:15:00 97 /min [facility] Systolic blood pressure 2021-05-08 18:10:00 156 mm[Hg] [facility] Diastolic blood pressure 2021-05-08 18:10:00 95 mm[Hg] [facility] Heart rate 2021-05-08 18:10:00 99 /min [facility] Body temperature 2021-05-08 18:10:00 36.06 Nano [facility] Respiratory rate 2021-05-08 18:10:00 18 /min [facility] Body weight 2021-05-08 18:10:00 116.756 kg [facility] BMI 2021-05-08 18:10:00 39.14 kg/m2 [facility] Oxygen saturation in Arterial blood by Pulse oximetry 2021-05-08 18:10:00 96 /min [facility] Systolic blood pressure 2021-05-06 09:26:00 145 mm[Hg] [facility] Diastolic blood pressure 2021-05-06 09:26:00 93 mm[Hg] [facility] Heart rate 2021-05-06 09:26:00 79 /min [facility] Respiratory rate 2021-05-06 09:26:00 20 /min [facility] Oxygen saturation in Arterial blood by Pulse oximetry 2021-05-06 09:26:00 97 /min [facility] Body temperature 2021-05-06 07:56:00 37.11 Nano [facility] Body height 2021-05-06 07:56:00 172.7 cm [facility] Body weight 2021-05-06 07:56:00 118.434 kg [facility] BMI 2021-05-06 07:56:00 39.70 kg/m2 [facility] Systolic blood pressure 2021-03-15 06:19:00 127 mm[Hg] [facility] Diastolic blood pressure 2021-03-15 06:19:00 79 mm[Hg] [facility] Heart rate 2021-03-15 06:19:00 78 /min [facility] Respiratory rate 2021-03-15 06:19:00 23 /min [facility] Oxygen saturation in Arterial blood by Pulse oximetry 2021-03-15 06:19:00 96 /min [facility] Body temperature 2021-03-15 03:05:45 37 Nano [facility] Body weight 2021-03-15 02:46:00 114.76 kg [facility] BMI 2021-03-15 02:46:00 38.47 kg/m2 [facility] Systolic blood pressure 2021-03-15 06:19:00 127 mm[Hg] [facility] Diastolic blood pressure 2021-03-15 06:19:00 79 mm[Hg] [facility] Heart rate 2021-03-15 06:19:00 78 /min [facility] Respiratory rate 2021-03-15 06:19:00 23 /min [facility] Oxygen saturation in Arterial blood by Pulse oximetry 2021-03-15 06:19:00 96 /min [facility] Body temperature 2021-03-15 03:05:45 37 Nano [facility] Body weight 2021-03-15 02:46:00 114.76 kg [facility] BMI 2021-03-15 02:46:00 38.47 kg/m2 [facility] Systolic blood pressure 2020-09-09 00:10:00 124 mm[Hg] [facility] Diastolic blood pressure 2020-09-09 00:10:00 77 mm[Hg] [facility] Heart rate 2020-09-09 00:10:00 83 /min [facility] Respiratory rate 2020-09-09 00:10:00 16 /min [facility] Oxygen saturation in Arterial blood by Pulse oximetry 2020-09-09 00:10:00 97 /min [facility] Body temperature 2020-09-08 23:14:00 37.39 Nano [facility] Body weight 2020-09-08 22:49:00 107.956 kg [facility] BMI 2020-09-08 22:49:00 36.19 kg/m2 [facility] Systolic blood pressure 2020-09-09 00:10:00 124 mm[Hg] [facility] Diastolic blood pressure 2020-09-09 00:10:00 77 mm[Hg] [facility] Heart rate 2020-09-09 00:10:00 83 /min [facility] Respiratory rate 2020-09-09 00:10:00 16 /min [facility] Oxygen saturation in Arterial blood by Pulse oximetry 2020-09-09 00:10:00 97 /min [facility] Body temperature 2020-09-08 23:14:00 37.39 Nano [facility] Body weight 2020-09-08 22:49:00 107.956 kg [facility] BMI 2020-09-08 22:49:00 36.19 kg/m2 [facility] Systolic blood pressure 2020-09-06 19:30:00 115 mm[Hg] [facility] Diastolic blood pressure 2020-09-06 19:30:00 65 mm[Hg] [facility] Heart rate 2020-09-06 19:30:00 67 /min [facility] Body temperature 2020-09-06 19:30:00 36.83 Nano [facility] Respiratory rate 2020-09-06 19:30:00 19 /min [facility] Oxygen saturation in Arterial blood by Pulse oximetry 2020-09-06 19:30:00 99 /min [facility] Body weight 2020-09-06 15:41:00 107.956 kg [facility] BMI 2020-09-06 15:41:00 36.19 kg/m2 [facility] Systolic blood pressure 2020-09-06 19:30:00 115 mm[Hg] [facility] Diastolic blood pressure 2020-09-06 19:30:00 65 mm[Hg] [facility] Heart rate 2020-09-06 19:30:00 67 /min [facility] Body temperature 2020-09-06 19:30:00 36.83 Nano [facility] Respiratory rate 2020-09-06 19:30:00 19 /min [facility] Oxygen saturation in Arterial blood by Pulse oximetry 2020-09-06 19:30:00 99 /min [facility] Body weight 2020-09-06 15:41:00 107.956 kg [facility] BMI 2020-09-06 15:41:00 36.19 kg/m2 [facility] Systolic blood pressure 2020-08-30 13:11:00 136 mm[Hg] [facility] Diastolic blood pressure 2020-08-30 13:11:00 77 mm[Hg] [facility] Heart rate 2020-08-30 13:11:00 74 /min [facility] Body temperature 2020-08-30 13:11:00 36.5 Nano [facility] Respiratory rate 2020-08-30 13:11:00 18 /min [facility] Oxygen saturation in Arterial blood by Pulse oximetry 2020-08-30 13:11:00 96 /min [facility] Body weight 2020-08-30 09:00:00 107.956 kg [facility] BMI 2020-08-30 09:00:00 36.19 kg/m2 [facility] Body height 2020-08-27 07:49:00 172.7 cm [facility] Systolic blood pressure 2020-08-30 13:11:00 136 mm[Hg] [facility] Diastolic blood pressure 2020-08-30 13:11:00 77 mm[Hg] [facility] Heart rate 2020-08-30 13:11:00 74 /min [facility] Body temperature 2020-08-30 13:11:00 36.5 Nano [facility] Respiratory rate 2020-08-30 13:11:00 18 /min [facility] Oxygen saturation in Arterial blood by Pulse oximetry 2020-08-30 13:11:00 96 /min [facility] Body weight 2020-08-30 09:00:00 107.956 kg [facility] BMI 2020-08-30 09:00:00 36.19 kg/m2 [facility] Body height 2020-08-27 07:49:00 172.7 cm [facility] Systolic blood pressure 2020-07-10 05:30:00 123 mm[Hg] [facility] Diastolic blood pressure 2020-07-10 05:30:00 77 mm[Hg] [facility] Heart rate 2020-07-10 05:30:00 75 /min [facility] Respiratory rate 2020-07-10 05:30:00 19 /min [facility] Oxygen saturation in Arterial blood by Pulse oximetry 2020-07-10 05:30:00 97 /min [facility] Body temperature 2020-07-10 00:48:00 37.39 Nano [facility] Body height 2020-07-10 00:48:00 172.7 cm [facility] Body weight 2020-07-10 00:43:00 99.791 kg [facility] BMI 2020-07-10 00:43:00 33.45 kg/m2 [facility] Systolic blood pressure 2020-07-10 05:30:00 123 mm[Hg] [facility] Diastolic blood pressure 2020-07-10 05:30:00 77 mm[Hg] [facility] Heart rate 2020-07-10 05:30:00 75 /min [facility] Respiratory rate 2020-07-10 05:30:00 19 /min [facility] Oxygen saturation in Arterial blood by Pulse oximetry 2020-07-10 05:30:00 97 /min [facility] Body temperature 2020-07-10 00:48:00 37.39 Nano [facility] Body height 2020-07-10 00:48:00 172.7 cm [facility] Body weight 2020-07-10 00:43:00 99.791 kg [facility] BMI 2020-07-10 00:43:00 33.45 kg/m2 [facility] Procedures Procedure Date / Time Performed Performing Clinician Source EKG-12 LEAD 2023-11-06 08:26:13 Nidia Solano [facility] LIPASE 2023-11-06 06:15:00 SheilaNidia dyer [facility] MAGNESIUM 2023-11-06 06:15:00 She[facility]Nidia dyer [facility] COMP. METABOLIC PANEL ([id number]) 2023-11-06 06:15:00 Nidia Solano [facility] CBC WITH DIFF 2023-11-06 06:15:00 Nidia Solano [facility] URINALYSIS 2023-11-06 06:15:00 Nidia [facility]ano [facility] CONSENT/REFUSAL FOR DIAGNOSIS AND TREATMENT 2023-11-06 05:40:44 Doctor Unassigned, [place] [facility] CT ABDOMEN PELVIS W CONTRAST 2023-11-01 08:32:40 Jose Francisco Walters [facility] LIPASE 2023-11-01 05:45:[address] [facility] COMP. METABOLIC PANEL ([id number]) 2023-11-01 05:45:00 Jose Francisco Walters [facility] CBC WITH DIFF 2023-11-01 05:45:00 Jose Francisco Walters [facility] URINALYSIS 2023-11-01 05:45:[address] [facility] POCT GLUCOSE (AUTOMATED) 2023-11-01 05:41:00 Lena Walters [facility] CONSENT/REFUSAL FOR DIAGNOSIS AND TREATMENT 2023-11-01 05:29:45 Doctor Unassigned, [place] [facility] CT ABDOMEN PELVIS W CONTRAST 2023-10-23 07:06:44 Chapito Contreras [facility] LIPASE 2023-10-23 05:50:00 Chapito Contreras [facility] COMP. METABOLIC PANEL ([id number]) 2023-10-23 05:50:00 Chapito Contreras [facility] CBC WITH DIFF 2023-10-23 05:50:00 Chapito Contreras [facility] URINALYSIS 2023-10-23 05:50:00 Chapito Contreras [facility] CONSENT/REFUSAL FOR DIAGNOSIS AND TREATMENT 2023-10-23 05:34:08 Doctor Unassigned, [place] [facility] URINALYSIS 2023-09-26 06:12:[address] [facility] 2023-09-26 05:12:00 Jose [facility] HEPATIC FUNCTION PANEL ([id number]) (ALB,T.PRO,BILI T,BU/BC,ALT,AST,ALK PHOS) 2023-09-26 05:12:00 Jose [facility] BASIC METABOLIC PANEL (NA, K, CL, CO2, GLUCOSE, BUN, CREATININE, CA) 2023-09-26 05:12:00 Jose [facility] CBC WITH DIFF 2023-09-26 05:12:00 Jose [facility] NOTICE OF PRIVACY PRACTICES 2023-09-26 04:50:48 Doctor Unassigned, [place] [facility] CONSENT/REFUSAL FOR DIAGNOSIS AND TREATMENT 2023-09-26 04:50:08 Doctor Unassigned, [place] [facility] CT CHEST PULMONARY ANGIOGRAM 2023-08-24 08:02:29 Patrick Vergara [facility] XR CHEST 1 VW 2023-08-24 04:38:16 [facility] TROPONIN I 2023-08-24 04:29:[address] [facility] COMP. METABOLIC PANEL ([id number]) 2023-08-24 04:29:00 Patrick Vergara [facility] CBC WITH DIFF 2023-08-24 04:29:00 [facility] CONSENT/REFUSAL FOR DIAGNOSIS AND TREATMENT 2023-08-24 03:41:11 Doctor Unassigned, [place] [facility] LIPASE 2023-07-07 09:22:00 Chapito Contreras [facility] TROPONIN I 2023-07-07 09:22:00 [facility]. METABOLIC PANEL ([id number]) 2023-07-07 09:22:00 Chapito Contreras [facility] CBC WITH DIFF 2023-07-07 09:22:00 [facility] 2023-07-07 09:22:00 Chapito Contreras [facility] CONSENT/REFUSAL FOR DIAGNOSIS AND TREATMENT 2023-07-07 08:49:51 Doctor Unassigned, [place] [facility] POCT GLUCOSE (AUTOMATED) 2023-05-26 02:17:00 Nidia Solano [facility] URINALYSIS 2023-05-26 01:24:00 Nidia Solano [facility] POCT GLUCOSE (AUTOMATED) 2023-05-26 01:22:00 Nidia Solano [facility] TROPONIN I 2023-05-26 00:54:00 N[facility] COVID-19 (ID NOW RAPID TESTING) 2023-05-26 00:54:00 Nidia Solano [facility] ASSIGNMENT OF BENEFITS 2023-05-26 00:29:59 Docto r Unassigned, [place] [facility] XR CHEST 1 VW 2023-05-25 22:41:21 Nidia Solano [facility] LIPASE 2023-05-25 22:33:00 Nidia Solano [facility] MAGNESIUM 2023-05-25 22:33:00 Nidia Solano [facility] TROPONIN I 2023-05-25 22:33:00 Nidia Solano [facility] COMP. METABOLIC PANEL ([id number]) 2023-05-25 22:33:00 Nidia Solano [facility] CBC WITH DIFF 2023-05-25 22:33:00 Nidia Solano [facility] N-TERMINAL PRO-BNP 2023-05-25 22:33:00 Nidia Solano [facility] CONSENT/REFUSAL FOR DIAGNOSIS AND TREATMENT 2023-05-25 22:07:05 Doctor Unassigned, [place] [facility] COVID-19 (ID NOW RAPID TESTING) 2023-02-20 23:30:00 Sofia Escobar [facility] CONSENT/REFUSAL FOR DIAGNOSIS AND TREATMENT 2023-02-20 22:54:00 Doctor Unassigned, [place] [facility] CT ABDOMEN PELVIS W CONTRAST 2022-12-29 08:28:18 Chapito Contreras [facility] LIPASE 2022-12-29 07:11:00 Chapito Contreras [facility] COMP. METABOLIC PANEL ([id number]) 2022-12-29 07:11:00 Chapito Contreras [facility] CBC WITH DIFF 2022-12-29 07:11:00 Chapito Contreras [facility] URINALYSIS 2022-12-29 07:11:00 Chapito Contreras [facility] CONSENT/REFUSAL FOR DIAGNOSIS AND TREATMENT 2022-12-29 06:24:27 Doctor Unassigned, [place] [facility] CONSENT/REFUSAL FOR DIAGNOSIS AND TREATMENT 2022-11-21 08:05:19 Doctor Unassigned, [place] [facility] RAPID STREP SCREEN FOR GROUP A 2022-10-29 07:36:00 Marie Morales [facility] CONSENT/REFUSAL FOR DIAGNOSIS AND TREATMENT 2022-10-29 07:23:03 Doctor Unassigned, [place] [facility] CONSENT/REFUSAL FOR DIAGNOSIS AND TREATMENT 2022-06-02 04:34:17 Doctor Unassigned, [place] [facility] FREE T4 2022-05-28 16:06:00 Saqib Clarke [facility] THYROID STIMULATING HORMONE 2022-05-28 16:06:00 Saqib Clarke [facility] COMP. METABOLIC PANEL ([id number]) 2022-05-28 16:06:00 Saqib Clarke [facility] CBC WITH DIFF 2022-05-28 16:06:00 Saqib Clarke [facility] FREE T3 2022-05-28 16:06:00 Saqib Clarke [facility] CONSENT/REFUSAL FOR DIAGNOSIS AND TREATMENT 2022-05-28 14:55:38 Doctor Unassigned, [place] [facility] CT ABDOMEN PELVIS W CONTRAST 2022-05-06 06:06:56 Nidia Solano [facility] LIPASE 2022-05-06 05:17:00 Nidia Solano [facility] MAGNESIUM 2022-05-06 05:17:00 Nidia Solano [facility] TROPONIN I 2022-05-06 05:17:00 N[facility] COMP. METABOLIC PANEL ([id number]) 2022-05-06 05:17:00 Nidia Solano [facility] CBC WITH DIFF 2022-05-06 05:17:00 Nidia Solano [facility] URINALYSIS 2022-05-06 05:17:00 Nidia Solano [facility] RAPID INFLUENZA A/B 2022-05-06 03:48:00 Nidia Solano [facility] COVID-19 (ID NOW RAPID TESTING) 2022-05-06 03:48:00 Nidia Solano [facility] CONSENT/REFUSAL FOR DIAGNOSIS AND TREATMENT 2022-05-06 03:22:49 Doctor Unassigned, [place] [facility] COMP. METABOLIC PANEL ([id number]) 2022-05-01 12:42:00 Saqib Clarke [facility] CBC WITH DIFF 2022-05-01 12:42:00 Saqib Clarke [facility] CONSENT/REFUSAL FOR DIAGNOSIS AND TREATMENT 2022-05-01 12:23:44 Doctor Unassigned, [place] [facility] URINALYSIS 2022-02-08 06:27:00 Benjamin Ashford [facility] URINE DRUG (IMMUNOASSAY) - COMPREHENSIVE DRUG SCREEN W/O REFLEX 2022-02-08 06:27:00 Benjamin Ashford [facility] LIPASE 2022-02-08 06:15:[address] [facility] TROPONIN I 2022-02-08 06:15:[address] [facility] COMP. METABOLIC PANEL ([id number]) 2022-02-08 06:15:00 Benjamin Ashford [facility] ETHANOL 2022-02-08 06:15:[address] [facility] CBC WITH DIFF 2022-02-08 06:15:00 Benjamin Ashford [facility] PROTHROMBIN TIME / INR 2022-02-08 06:15:00 Rukhsana Ashford [facility] ACTIVATED PARTIAL THRMPLAS ELAINE 2022-02-08 06:15:00 Benjamin Ashford [facility] N-TERMINAL PRO-BNP 2022-02-08 06:15:00 Benjamin Ashford [facility] NOTICE OF PRIVACY PRACTICES 2022-02-08 06:01:50 Doctor Unassigned, [place] [facility] CONSENT/REFUSAL FOR DIAGNOSIS AND TREATMENT 2022-02-08 05:59:20 Doctor Unassigned, [place] [facility] CT ABDOMEN PELVIS W CONTRAST 2021-10-15 00:40:39 Marie Morales [facility] LIPASE 2021-10-15 00:26:00 Marie Morales [facility] TROPONIN I 2021-10-15 00:26:00 Marie Morales [facility] COMP. METABOLIC PANEL ([id number]) 2021-10-15 00:26:00 Marie Morales [facility] CBC WITH DIFF 2021-10-15 00:26:00 Marie Morales [facility] NOTICE OF PRIVACY PRACTICES 2021-10-14 22:18:20 Doctor Unassigned, [place] [facility] CONSENT/REFUSAL FOR DIAGNOSIS AND TREATMENT 2021-10-14 22:17:56 Doctor Unassigned, [place] [facility] CT ABDOMEN PELVIS W CONTRAST 2021-03-15 04:54:23 Chapito Contreras [facility] COVID-19 (ID NOW RAPID TESTING) 2021-03-15 03:34:00 Chapito Contreras [facility] URINALYSIS 2021-03-15 03:16:00 Chapito Contreras [facility] COMP. METABOLIC PANEL ([id number]) 2021-03-15 03:11:00 Chapito Contreras [facility] CBC WITH DIFF 2021-03-15 03:11:00 Chapito Contreras [facility] CONSENT/REFUSAL FOR DIAGNOSIS AND TREATMENT 2021-03-15 02:38:38 Doctor Unassigned, [place] [facility] LIPASE 2020-09-08 23:14:00 Saqib [facility] COMP. METABOLIC PANEL ([id number]) 2020-09-08 23:14:00 Saqib Clarke [facility] CBC WITH DIFF 2020-09-08 23:14:00 Saqib Clarke [facility] CONSENT/REFUSAL FOR DIAGNOSIS AND TREATMENT 2020-09-08 22:38:49 Doctor Unassigned, [place] [facility] CT ABDOMEN PELVIS W CONTRAST 2020-09-06 17:05:33 Nidia Solano Haily [facility] LACTIC ACID WHOLE BLOOD 2020-09-06 16:31:00 Nidia Solano [facility] LIPASE 2020-09-06 16:11:00 Nidia Sol[facility] MAGNESIUM 2020-09-06 16:11:[address] [facility] COMP. METABOLIC PANEL ([id number]) 2020-09-06 16:11:00 Nidia Solano Haily [facility] CBC WITH DIFF 2020-09-06 16:11:00 Nidia Solano [facility] NOTICE OF PRIVACY PRACTICES 2020-09-06 15:30:39 Doctor Unassigned, [place] [facility] CONSENT/REFUSAL FOR DIAGNOSIS AND TREATMENT 2020-09-06 15:30:28 Doctor Unassigned, [place] [facility] COMP. METABOLIC PANEL ([id number]) 2020-08-30 08:39:00 Babs Carranza [facility] CBC WITH DIFF 2020-08-30 08:39:00 Babs Carranza [facility] US ABDOMEN COMPLETE 2020-08-28 18:11:06 Patrick No [facility] ECHO ROUTINE W/DOPPLER COLOR 2020-08-28 16:34:45 Oneal [facility] HEPATIC FUNCTION PANEL ([id number]) (ALB,T.PRO,BILI T,BU/BC,ALT,AST,ALK PHOS) 2020-08-28 10:16:00 Favio Chang [facility] BASIC METABOLIC PANEL (NA, K, CL, CO2, GLUCOSE, BUN, CREATININE, CA) 2020-08-28 10:16:00 Oneal [facility] TROPONIN I 2020-08-27 18:11:00 Oneal [facility] POCT GLUCOSE (AUTOMATED) 2020-08-27 18:02:00 Clau No [facility] POCT GLUCOSE (AUTOMATED) 2020-08-27 13:49:00 Clau No [facility] TROPONIN I 2020-08-27 11:35:00 Oneal [facility] CT ABDOMEN PELVIS W WO CONTRAST 2020-08-27 07:38:49 Oneal [facility] COVID-19 (ID NOW RAPID TESTING) 2020-08-27 06:21:00 Benjamin Ashford [facility] URINALYSIS 2020-08-27 06:20:00 [facility]ford [facility] ADC / LCC - DRUG SCREEN TRIAGE 2020-08-27 06:20:00 Benjamin Ashford [facility] XR CHEST 1 VW 2020-08-27 06:05:42 Benjamin Ashford [facility] LIPASE 2020-08-27 05:58:00 Benjamin Ashford [facility] TROPONIN I 2020-08-27 05:58:00 Benjamin Ashford [facility] THYROID STIMULATING HORMONE 2020-08-27 05:58:00 Oneal [facility] HEPATIC FUNCTION PANEL ([id number]) (ALB,T.PRO,BILI T,BU/BC,ALT,AST,ALK PHOS) 2020-08-27 05:58:00 Benjamin Ashford [facility] BASIC METABOLIC PANEL (NA, K, CL, CO2, GLUCOSE, BUN, CREATININE, CA) 2020-08-27 05:58:00 Benjamin Ashford [facility] LIPID PANEL ([id number])(TOTAL CHOLESTEROL, TRIGLYCERIDES, HDL) 2020-08-27 05:58:00 Gricelda No [facility] ETHANOL 2020-08-27 05:58:[address] [facility] CBC WITH DIFF 2020-08-27 05:58:00 Benjamin Ashford [facility] PROTHROMBIN TIME / INR 2020-08-27 05:58:00 Rukhsana Ashford [facility] ACTIVATED PARTIAL THRMPLAS ELAINE 2020-08-27 05:58:00 Benjamin Ashford [facility] EKG-12 LEAD 2020-08-27 05:54:[address] [facility] NOTICE OF PRIVACY PRACTICES 2020-08-27 05:44:26 Doctor Unassigned, [place] [facility] CONSENT/REFUSAL FOR DIAGNOSIS AND TREATMENT 2020-08-27 05:43:44 Doctor Unassigned, [place] [facility] CONSENT/REFUSAL FOR DIAGNOSIS AND TREATMENT 2020-08-27 05:43:43 Doctor Unassigned, [place] [facility] CT ABDOMEN PELVIS W CONTRAST 2020-07-10 05:12:21 Chapito Contreras [facility] TROPONIN I 2020-07-10 03:49:00 Chapito Contreras [facility] ADC / LCC - DRUG SCREEN TRIAGE 2020-07-10 03:13:00 Chapito Contreras [facility] XR CHEST 1 VW 2020-07-10 01:05:14 Chapito Contreras [facility] LIPASE 2020-07-10 00:55:00 Chapito Contreras [facility] TROPONIN I 2020-07-10 00:55:00 Chapito Contreras [facility] COMP. METABOLIC PANEL ([id number]) 2020-07-10 00:55:00 Chapito Contreras [facility] CBC WITH DIFF 2020-07-10 00:55:00 [facility] / INR 2020-07-10 00:55:00 Yesica Contreras [facility] D-DIMER 2020-07-10 00:55:00 Chapito Contreras [facility] COVID-19 (ID NOW RAPID TESTING) 2020-07-10 00:55:00 Chapito Contreras [facility] EKG-12 LEAD 2020-07-10 00:52:35 Chapito Contreras [facility] Encounters Start Date/Time End Date/Time Encounter Type Admission Type Attending [facility] Facility Care Department Encounter ID Source 2023-11-05 23:52:00 2023-11-06 02:37:00 Emergency X Nidia SOLANO [facility] ERT [id number] [facility] 2023-11-05 23:52:00 2023-11-06 02:37:00 Emergency Nidia Solano [facility] 1.2.840.114 350.1.13.10 4.2.7.2.686 [id number] 084 [id number] [facility] 2023-10-31 23:33:00 2023-11-01 04:19:00 Emergency X JOSE FRANCISCO WALTERS [facility] ERT [id number] [facility] 2023-10-31 23:33:00 2023-11-01 04:19:00 Emergency Vasut Jose Francisco J [facility] 1.2.840.114 350.1.13.10 4.2.7.2.686 [id number] [facility] 2023-10-22 23:39:00 2023-10-23 02:31:00 Emergency X CHAPITO CONTRERAS [facility] ERT [id number] [facility] 2023-10-22 23:39:00 2023-10-23 02:31:00 Emergency Chapito Contreras [facility] 1.2.840.114 350.1.13.10 4.2.7.2.686 [id number] 084 [id number] [facility] 2023-09-25 23:04:00 2023-09-26 02:30:00 Emergency X LOREN TAM HEE-KWANG [facility] ERT [id number] [facility] 2023-09-25 23:04:00 2023-09-26 02:30:00 Emergency Loren Tam [facility] 1.2.840.114 350.1.13.10 4.2.7.2.686 [id number] 084 [id number] [facility] 2023-08-25 00:00:00 2023-08-25 00:00:00 Patient Secure Msg Doctor Unassigned, [place] [facility] 1.2.840.114 350.1.13.10 4.2.7.2.686 [id number] [facility] 2023-08-23 22:43:00 2023-08-24 02:41:00 Emergency Patrick Vergara [facility] 1.2.840.114 350.1.13.10 4.2.7.2.686 [id number] 084 [id number] [facility] 2023-08-23 22:43:00 2023-08-24 02:41:00 Emergency X PATRICK VERGARA [facility] ERT [id number] [facility] 2023-07-07 03:51:00 2023-07-07 05:56:00 Emergency X CHAPITO CONTRERAS [facility] ERT [id number] [facility] 2023-07-07 03:51:00 2023-07-07 05:56:00 Emergency Chapito Contreras [facility] 1.2.840.114 350.1.13.10 4.2.7.2.686 [id number] 084 [id number] [facility] 2023-05-25 17:20:00 2023-05-25 22:37:00 Emergency X Nidia SOLANO [facility] ERT [id number] [facility] 2023-05-25 17:20:00 2023-05-25 22:37:00 Emergency Nidia Solano [facility] 1.2.840.114 350.1.13.10 4.2.7.2.686 [id number] 084 [id number] [facility] 2023-02-20 18:06:00 2023-02-20 21:03:00 Emergency X ESCOBARSOFIA TIMOTHY [facility] ERT [id number] [facility] 2023-02-20 18:06:00 2023-02-20 21:03:00 Emergency Sofia Escobar [facility] 1.2.840.114 350.1.13.10 4.2.7.2.686 [id number] [id number] [facility] 2023-02-20 00:00:00 2023-02-20 00:00:00 Orders Only Doctor Unassigned, [place] [facility] 1.2.840.114 350.1.13.10 4.2.7.2.686 [id number] [id number] [facility] 2022-12-29 00:24:00 2022-12-29 05:29:00 Emergency X CHAPITO CONTRERAS [facility] ERT [id number] [facility] 2022-12-29 00:24:00 2022-12-29 05:29:00 Emergency Chapito Contreras [facility] 1.2.840.114 350.1.13.10 4.2.7.2.686 [id number] 084 [id number] [facility] 2022-11-21 02:14:00 2022-11-21 03:04:00 Emergency X PATRICK VERGARA [facility] ERT [id number] [facility] 2022-11-21 02:14:00 2022-11-21 03:04:00 Emergency Patrick Vergara [facility] 1.2.840.114 350.1.13.10 4.2.7.2.686 [id number] 084 [id number] [facility] 2022-10-29 01:37:00 2022-10-29 02:25:00 Emergency X CARMENCECILERA [facility] ERT [id number] [facility] 2022-10-29 01:37:00 2022-10-29 02:25:00 Emergency Carmen Marie Price [facility] 1.2.840.114 350.1.13.10 4.2.7.2.686 [id number] [id number] [facility] 2022-06-01 23:34:00 2022-06-02 00:39:00 Emergency X SAQIB CLARKE [facility] ERT [id number] [facility] 2022-06-01 23:34:00 2022-06-02 00:39:00 Emergency Singer Saqib [facility] 1.2.840.114 350.1.13.10 4.2.7.2.686 [id number] 084 [id number] [facility] 2022-05-28 11:00:00 2022-05-28 13:39:00 Emergency X CLARKE SAQIB [facility] ERT [id number] [facility] 2022-05-28 11:00:00 2022-05-28 13:39:00 Emergency Clarke Saqib [facility] 1.2.840.114 350.1.13.10 4.2.7.2.686 [id number] 084 [id number] [facility] 2022-05-05 22:33:00 2022-05-06 01:49:00 Emergency X Nidia SOLANO [facility] ERT [id number] [facility] 2022-05-05 22:33:00 2022-05-06 01:49:00 Emergency Nidia Solano [facility] 1.2.840.114 350.1.13.10 4.2.7.2.686 [id number] 084 [id number] [facility] 2022-05-01 07:33:00 2022-05-01 09:07:00 Emergency X SAQIB CLARKE [facility] ERT [id number] [facility] 2022-05-01 07:33:00 2022-05-01 09:07:00 Emergency Saqib Clarke [facility] 1.2.840.114 350.1.13.10 4.2.7.2.686 [id number] [id number] [facility] 2022-02-08 01:00:00 2022-02-08 03:03:00 Emergency X RUKHSANA ASHFORDNELL [facility] ERT [id number] [facility] 2022-02-08 01:00:00 2022-02-08 03:03:00 Emergency Benjamin Ashford [facility] 1.2.840.114 350.1.13.10 4.2.7.2.686 [id number] 084 [id number] [facility] 2021-10-14 16:40:00 2021-10-14 19:30:00 Emergency X MARIE MORALES [facility] ERT [id number] [facility] 2021-10-14 16:40:00 2021-10-14 19:30:00 Emergency Marie oMrales [facility] 1.2.840.114 350.1.13.10 4.2.7.2.686 [id number] 084 [id number] [facility] 2021-05-15 12:11:58 2021-05-15 23:59:00 Hospital Encounter Geoff Cardona [facility] 1.2840.114 350.1.13.10 4.2.7.2.686 [id number] [facility] 2021-05-15 12:30:00 2021-05-15 12:30:00 Outpatient Shreyas GEOFF CARDONA [facility] [id number] [facility] 2021-05-08 12:30:00 2021-05-08 23:59:00 Hospital Encounter Kiki Mathur [facility] 1.2.840.114 350.1.13.10 4.2.7.2.686 [id number] [facility] 2021-05-08 12:30:00 2021-05-08 12:30:00 Outpatient KIKI GODINEZ [facility] [id number] [facility] 2021-05-06 03:01:00 2021-05-06 04:28:00 [facility] 1.2.[facility].114 350.1.13.10 4.2.7.2.686 [id number] 084 [id number] [facility] 2021-05-06 03:01:00 2021-05-06 04:28:00 Emergency X CLARKESAQIB [facility] ERT [id number] [facility] 2021-03-14 21:49:00 2021-03-15 01:22:00 [facility] 1.2.[facility].114 350.1.13.10 4.2.7.2.686 [id number] 084 [id number] [facility] 2021-03-14 21:49:00 2021-03-15 01:22:00 Emergency Chapito Contreras [facility] 1.2.840.114 350.1.13.10 4.2.7.2.686 [id number] 084 [id number] 2021-03-14 21:49:00 2021-03-14 21:49:00 Emergency X CHAPITO CONTRERAS [facility] ERT [id number] [facility] 2020-09-08 16:52:00 2020-09-08 18:13:00 Emergency Saqib Clarke [facility] 1.2.840.114 350.1.13.10 4.2.7.2.686 [id number] [id number] [facility] 2020-09-08 16:52:00 2020-09-08 18:13:00 Emergency Saqib Clarke [facility] 1.2.840.114 350.1.13.10 4.2.7.2.686 [id number] [id number] 2020-09-08 16:52:00 2020-09-08 16:52:00 Emergency X SAQIB CLARKE [facility] ERT [id number] [facility] 2020-09-06 09:52:00 2020-09-06 13:38:00 Emergency Nidia Solano [facility] 1.2.840.114 350.1.13.10 4.2.7.2.686 [id number] 084 [id number] [facility] 2020-09-06 09:52:00 2020-09-06 13:38:00 Emergency Nidia Solano [facility] 1.2.840.114 350.1.13.10 4.2.7.2.686 [id number] [id number] 2020-09-06 09:52:00 2020-09-06 09:52:00 Emergency X [facility] ERT [id number] [facility] 2020-09-06 00:00:00 2020-09-06 00:00:00 Orders Only Doctor Unassigned, [place] [facility] 1.2.840.114 350.1.13.10 4.2.7.2.686 [id number] [id number] [facility] 2020-09-06 00:00:00 2020-09-06 00:00:00 Orders Only Doctor Unassigned, [place] [facility] 1.2.840.114 350.1.13.10 4.2.7.2.686 [id number] [id number] 2020-08-26 23:45:00 2020-08-30 08:05:00 [facility].2.[facility].114 350.1.13.10 4.2.7.2.686 [id number] [id number] [facility] 2020-08-26 23:45:00 2020-08-30 08:05:00 [facility] 1.2.840.114 350.1.13.10 4.2.7.2.686 [id number] [id number] 2020-08-26 23:43:00 2020-08-26 23:43:00 Emergency X [facility] ERT [id number] [facility] 2020-07-09 19:41:00 2020-07-10 00:40:00 Emergency [facility] 1.2.840.114 350.1.13.10 4.2.7.2.686 [id number] 084 [id number] [facility] 2020-07-09 19:41:00 2020-07-10 00:40:00 Emergency Florinawygilmar [facility] 1.2.840.114 350.1.13.10 4.2.7.2.686 [id number] [id number] 2020-07-09 19:41:00 2020-07-09 19:41:00 Emergency X CHAPITO CONTRERAS [facility] ERT [id number] [facility] Results Test Description Test Time Test Comments Results Result Co mments Source [facility] (98868)2023-11-06 07:16:15* Test Item Value Reference Range Interpretation Comme nts NA (test code = 5764345493) 138 mmol/L 135-145 K (test code = 9470758571) 3.5 mmol/L 3.5-5.0 CL (test code = 4496171993) 106 mmol/L 98-108 CO2 TOTAL (test code = 7656147281) 23 mmol/L 23-31 AGAP (test code = 7928039249) 9 2-16 BUN (test code = 9037811778) 18 mg/dL 7-23 GLUCOSE (test code = 4705807910) 110 mg/dL 70-110 CREATININE (test code = 0581765642) 0.73 mg/dL 0.60-1.25 TOTAL BILI (test code = 8406653997) 0.4 mg/dL 0.1-1.1 CALCIUM (test code = 6804062440) 9.4 mg/dL 8.6-10.6 T PROTEIN (test code = 7583705165) 8.5 g/dL 6.3-8.2 H ALBUMIN (test code = 5974859379) 4.8 g/dL 3.5-5.0 ALK PHOS (test code = 5742863810) 78 U/L 34-122 ALTv (test code = 1742-6) 42 U/L 5-50 AST(SGOT) (test code = 1072908326) 43 U/L 13-40 H eGFR (test code = 05031-0) 113.6 mL/min/1.73m2 CKD-EPI eGFR (2020). Assuming creatinine has been stable day-to-day for at least three months, the eGFR indicates Category G1 (>= 90 mL/min/1.73 m2) Lab Interpretation (test code = 08729-5) Abnormal [facility] 07:16:15* Test Item Value Reference Range Interpretation Comme nts LIPASE (test code = 0224390163) 118 U/L 0-220 Lab Interpretation (test cod e = 18331-6) Normal [facility] with [id number] 06:49:12* Test Item Value Reference Range Interpretation [...] 33.5 g/dL 31.2-35.0 RDW-SD (test code = 36334-4) 46.4 fL 38.5-51.6 RDW-CV (test code = 788-0) 13.7 % 12.1-15.4 PLT (test code = 777-3) 323 See_Comment [Automated [employer] ge] The system which generated this result transmitted reference range: 150 - 328 10*3/?L. The reference range was not used to interpret this result as normal/abnormal. MPV (test code = 92063-2) 9.8 fL 9.8-13.0 NRBC/100 WBC (test code = 6902586683) 0.0 See_Comment [Automated [employer] ssage] The system which generated this result transmitted reference range: 0.0 - 10.0 /100 WBCs. The reference range was not used to interpret this result as normal/abnormal. NRBC x10^3 (test code = 5802178857) See_Comment [Automated [employer] ge] The system which generated this result transmitted reference range: 10*3/?L. The reference range was not used to interpret this result as normal/abnormal. GRAN MAT (NEUT) % (test code = 770-8) 56.1 % IMM GRAN % (test code = 9525462448) 0.50 % LYMPH % (test code = 736-9) 34.8 % MONO % (test code = 5905-5) 6.3 % EOS % (test code = 713-8) 1.4 % BASO % (test code = 706-2) 0.9 % GRAN MAT x10^3(ANC) (test code = 4006946930) 6.38 10*3/uL 1.99-6.95 IMM GRAN x10^3 (test code = 6467904850) 0.06 10*3/uL 0.00-0.06 LYMPH x10^3 (test code = 731-0) 3.95 10*3/uL 1.09-3.23 H MONO x10^3 (test code = 742-7) 0.71 10*3/uL 0.36-1.02 EOS x10^3 (test code = 711-2) 0.16 10*3/uL 0.06-0.53 BASO x10^3 (test code = 704-7) 0.10 10*3/uL 0.01-0.09 H Lab Interpretation (test code = 73525-6) Abnormal [facility] ABDOM[facility] PELVIS W [id number] 09:00:37Ordering physician: JOSE FRANCISCO WALTERS Indication: Acute [...] osseous destructive lesion. [facility] Metabolic [id number] 06:29:13* Test Item Value Reference Range Interpretation Comme nts NA (test code = 9919379953) 138 mmol/L 135-145 K (test code = 4102169416) 3.8 mmol/L 3.5-5.0 CL (test code = 1269187370) 106 mmol/L 98-108 CO2 TOTAL (test code = 5533822379) 21 mmol/L 23-31 L AGAP (test code = 3304756391) 11 2-16 BUN (test code = 4114526623) 13 mg/dL 7-23 GLUCOSE (test code = 8100276376) 113 mg/dL 70-110 H CREATININE (test code = 0179766966) 0.63 mg/dL 0.60-1.25 TOTAL BILI (test code = 5187673102) 0.7 mg/dL 0.1-1.1 CALCIUM (test code = 3286844942) 9.6 mg/dL 8.6-10.6 T PROTEIN (test code = 8688806249) 9.0 g/dL 6.3-8.2 H ALBUMIN (test code = 5556808763) 5.0 g/dL 3.5-5.0 ALK PHOS (test code = 7294451701) 73 U/L 34-122 ALTv (test code = 1742-6) 33 U/L 5-50 AST(SGOT) (test code = 7713855208) 33 U/L 13-40 eGFR (test code = 43587-5) 118.8 mL/min/1.73m2 CKD-EPI eGFR (2020). Assuming creatinine has been stable day-to-day for at least three months, the eGFR indicates Category G1 (>= 90 mL/min/1.73 m2) Lab Interpretation (test code = 78430-0) Abnormal [facility], [id number] 06:29:13* Test Item Value Reference Range Interpretation Comme nts LIPASE (test code = 4040136659) 89 U/L 0-220 Lab Interpretation (test cod e = 74804-9) Normal [facility] with [id number] 06:17:56* Test Item Value Reference Range Interpretation [...] 33.9 g/dL 31.2-35.0 RDW-SD (test code = 52639-9) 46.6 fL 38.5-51.6 RDW-CV (test code = 788-0) 14.0 % 12.1-15.4 PLT (test code = 777-3) 312 See_Comment [Automated messa ge] The system which generated this result transmitted reference range: 150 - 328 10*3/?L. The reference range was not used to interpret this result as normal/abnormal. MPV (test code = 55915-1) 9.7 fL 9.8-13.0 L NRBC/100 WBC (test code = 6590152752) 0.0 See_Comment [Automated [employer] ssage] The system which generated this result transmitted reference range: 0.0 - 10.0 /100 WBCs. The reference range was not used to interpret this result as normal/abnormal. NRBC x10^3 (test code = 9374710723) See_Comment [Automated [employer] ge] The system which generated this result transmitted reference range: 10*3/?L. The reference range was not used to interpret this result as normal/abnormal. GRAN MAT (NEUT) % (test code = 770-8) 54.9 % IMM GRAN % (test code = 7420306259) 0.30 % LYMPH % (test code = 736-9) 36.0 % MONO % (test code = 5905-5) 6.3 % EOS % (test code = 713-8) 1.6 % BASO % (test code = 706-2) 0.9 % GRAN MAT x10^3(ANC) (test code = 4613532592) 6.35 10*3/uL 1.99-6.95 IMM GRAN x10^3 (test code = 0179425703) 0.03 10*3/uL 0.00-0.06 LYMPH x10^3 (test code = 731-0) 4.15 10*3/uL 1.09-3.23 H MONO x10^3 (test code = 742-7) 0.73 10*3/uL 0.36-1.02 EOS x10^3 (test code = 711-2) 0.18 10*3/uL 0.06-0.53 BASO x10^3 (test code = 704-7) 0.10 10*3/uL 0.01-0.09 H Lab Interpretation (test code = 96999-4) Abnormal [facility] GLUCOSE (AUTOMATED)2023-11-01 05:42:28* Test Item Value Reference Range Interpretation Comme nts POCT GLU (test code = 8503854671) 110 mg/dL 70-110 Lab Interpretation (test cod e = 86974-3) Normal [facility] ABDOMEN PELVIS W [id number] 07:44:05Ordering physician: CHAPITO CONTRERAS Indication: Acute right [...] lesion. 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 The reference range was not used to interpret this result as normal/abnormal. RBC (test code = 789-8) 5.23 See_Comment [Automated [employer] ge] The system which generated this result [...] 33.9 g/dL 31.2-35.0 RDW-SD (test code = 68103-3) 45.0 fL 38.5-51.6 RDW-CV (test code = 788-0) 13.6 % 12.1-15.4 PLT (test code = 777-3) 307 See_Comment [Automated [employer] ge] The system which generated this result transmitted reference range: 150 - 328 10*3/?L. The reference range was not used to interpret this result as normal/abnormal. MPV (test code = 20741-3) 9.3 fL 9.8-13.0 L NRBC/100 WBC (test code = 4490933231) 0.0 See_Comment [Automated [employer] ssage] The system which generated this result transmitted reference range: 0.0 - 10.0 /100 WBCs. The reference range was not used to interpret this result as normal/abnormal. NRBC x10^3 (test code = 1296547597) See_Comment [Automated [employer] ge] The system which generated this result transmitted reference range: 10*3/?L. The reference range was not used to interpret this result as normal/abnormal. SEG % (test code = 15954-1) 49 % 33-76 LYMPH % (test code = 21068-4) 40 % 14-54 MONO % (test code = 48459-1) 4 % 0-4 EOS % (test code = 12947-3) 7 % 0-3 H ANC (test code = 753-4) 5.81 10*3/uL 1.99-6.95 Lab Interpretation (test code = 97129-5) Abnormal [facility] Met[facility] [id number] 06:32:13* Test Item Value Reference Range Interpretation Comme nts NA (test code = 1867485210) 140 mmol/L 135-145 K (test code = 1413113082) 3.7 mmol/L 3.5-5.0 CL (test code = 9672569702) 105 mmol/L 98-108 CO2 TOTAL (test code = 2017154268) 23 mmol/L 23-31 AGAP (test code = 5867480508) 12 2-16 BUN (test code = 6647148568) 15 mg/dL 7-23 GLUCOSE (test code = 9107794809) 126 mg/dL 70-110 H CREATININE (test code = 1534244144) 0.89 mg/dL 0.60-1.25 TOTAL BILI (test code = 2225538724) 0.6 mg/dL 0.1-1.1 CALCIUM (test code = 1770350147) 9.5 mg/dL 8.6-10.6 T PROTEIN (test code = 3486957483) 8.6 g/dL 6.3-8.2 H ALBUMIN (test code = 2964781208) 4.7 g/dL 3.5-5.0 ALK PHOS (test code = 8035408811) 84 U/L 34-122 ALTv (test code = 1742-6) 38 U/L 5-50 AST(SGOT) (test code = 0137516393) 33 U/L 13-40 eGFR (test code = 84135-7) 107.0 mL/min/1.73m2 CKD-EPI eGFR (2020). Assuming creatinine has been stable day-to-day for at least three months, the eGFR indicates Category G1 (>= 90 mL/min/1.73 m2) Lab Interpretation (test code = 57403-3) Abnormal [facility], [id number] 06:31:52* Test Item Value Reference Range Interpretation Comme nts LIPASE (test code = 7169767390) 80 U/L 0-220 Lab Interpretation (test cod e = 18525-7) Normal [facility] MET[facility]OLIC PANEL (NA, K, CL, CO2, GLUCOSE, BUN, CREATININE, CA)2023-09-26 06:00:26* Test Item Value Reference Range Interpretation Comme nts NA (test code = 0169121625) 139 mmol/L 135-145 K (test code = 9080137828) 3.9 mmol/L 3.5-5.0 CL (test code = 3924149920) 104 mmol/L 98-108 CO2 TOTAL (test code = 7557360207) 25 mmol/L 23-31 AGAP (test code = 8236810182) 10 2-16 BUN (test code = 9968051575) 14 mg/dL 7-23 GLUCOSE (test code = 9052429545) 109 mg/dL 70-110 CREATININE (test code = 5470292886) 0.77 mg/dL 0.60-1.25 CALCIUM (test code = 8248155671) 10.4 mg/dL 8.6-10.6 eGFR (test code = 36218-6) 112.5 mL/min/1.73m2 CKD-EPI eGFR (20 21). Assuming creatinine has been stable day-to-day for at least three months, the eGFR indicates Category G1 (>= 90 mL/min/1.73 m2) [facility] (72964) (ALB,T.PRO,BILI T,BU/BC,ALT,AST,ALK PHOS)2023-09-26 06:00:26* Test Item Value Reference Range Interpretation Comme nts TOTAL BILI (test code = 1793244008) 0.6 mg/dL 0.1-1.1 BILI UNCON (test code = 2508247409) 0.4 mg/dL 0.1-1.1 BILI CONJ (test code = 8453484362) 0.0 mg/dL 0.0-0.3 T PROTEIN (test code = 4904232717) 8.6 g/dL 6.3-8.2 H ALBUMIN (test code = 4099499253) 4.7 g/dL 3.5-5.0 ALK PHOS (test code = 8751528191) 91 U/L 34-122 ALTv (test code = 1742-6) 40 U/L 5-50 AST(SGOT) (test code = 8949924764) 27 U/L 13-40 Lab Interpretation (test cod e = 25401-8) Abnormal [facility]2023-12-08 06:00:25* Test Item Value Reference Range Interpretation Comme nts LIPASE (test code = 2974350890) 73 U/L 0-220 Lab Interpretation (test cod e = 93149-8) Normal [facility] WITH [id number] 05:50:26* Test Item Value Reference Range Interpretation Comme nts WBC (test code = 6690-2) 10.08 See_Comment [Automated [employer]] The system which generated this result transmitted reference range: 4.20 - 10.70 10*3/?L. The reference range was not used to interpret this result as normal/abnormal. RBC (test code = 789-8) 5.24 See_Comment [Automated [employer]] The system which generated this result transmitted [...] 33.8 g/dL 31.2-35.0 RDW-SD (test code = 86851-3) 44.0 fL 38.5-51.6 RDW-CV (test code = 788-0) 13.1 % 12.1-15.4 PLT (test code = 777-3) 317 See_Comment [Automated [employer]] The system which generated this result transmitted reference range: 150 - 328 10*3/?L. The reference range was not used to interpret this result as normal/abnormal. MPV (test code = 55512-1) 9.6 fL 9.8-13.0 L NRBC/100 WBC (test code = 6498798780) 0.0 See_Comment [Automated me ssage] The system which generated this result transmitted reference range: 0.0 - 10.0 /100 WBCs. The reference range was not used to interpret this result as normal/abnormal. NRBC x10^3 (test code = 2573068311) See_Comment [Automated messa ge] The system which generated this result transmitted reference range: 10*3/?L. The reference range was not used to interpret this result as normal/abnormal. GRAN MAT (NEUT) % (test code = 770-8) 50.9 % IMM GRAN % (test code = 4790727787) 0.30 % LYMPH % (test code = 736-9) 38.3 % MONO % (test code = 5905-5) 7.5 % EOS % (test code = 713-8) 2.2 % BASO % (test code = 706-2) 0.8 % GRAN MAT x10^3(ANC) (test code = 2464944095) 5.13 10*3/uL 1.99-6.95 IMM GRAN x10^3 (test code = 9600149289) 0.03 10*3/uL 0.00-0.06 LYMPH x10^3 (test code = 731-0) 3.86 10*3/uL 1.09-3.23 H MONO x10^3 (test code = 742-7) 0.76 10*3/uL 0.36-1.02 EOS x10^3 (test code = 711-2) 0.22 10*3/uL 0.06-0.53 BASO x10^3 (test code = 704-7) 0.08 10*3/uL 0.01-0.09 Lab Interpretation (test code = 31366-1) Abnormal [facility] [id number] 05:30:49* Test Item Value Reference Range Interpretation Comme nts TROPONIN I (test code = 4660984264) 0.001 ng/mL <=0.034 LAURIE (test code = [...] of biotin. Lab Interpretation (test code = 20372-8) Normal [facility]. METABOLIC PANEL ([id number] 05:19:05* Test Item Value Reference Range Interpretation Comme nts NA (test code = 4284844576) 138 mmol/L 135-145 K (test code = 1974793238) 4.3 mmol/L 3.5-5.0 CL (test code = 8244854089) 100 mmol/L 98-108 CO2 TOTAL (test code = 9303304527) 25 mmol/L 23-31 AGAP (test code = 8910352591) 13 2-16 BUN (test code = 3162087521) 15 mg/dL 7-23 GLUCOSE (test code = 3335541118) 198 mg/dL 70-110 H CREATININE (test code = 8848661268) 0.86 mg/dL 0.60-1.25 TOTAL BILI (test code = 5817026461) 0.3 mg/dL 0.1-1.1 CALCIUM (test code = 2449455546) 10.3 mg/dL 8.6-10.6 T PROTEIN (test code = 6913085512) 8.6 g/dL 6.3-8.2 H ALBUMIN (test code = 0509397703) 4.5 g/dL 3.5-5.0 ALK PHOS (test code = 7554757460) 94 U/L 34-122 ALTv (test code = 1742-6) 44 U/L 5-50 AST(SGOT) (test code = 1506676739) 28 U/L 13-40 eGFR (test code = 18241-1) 108.8 mL/min/1.73m2 CKD-EPI eGFR (2020). Assuming creatinine has been stable day-to-day for at least three months, the eGFR indicates Category G1 (>= 90 mL/min/1.73 m2) Lab Interpretation (test code = 69489-3) Abnormal General acute hospital WITH [id number] 05:01:26* Test Item Value Reference Range Interpretation [...] 33.5 g/dL 31.2-35.0 RDW-SD (test code = 53761-1) 43.8 fL 38.5-51.6 RDW-CV (test code = 788-0) 13.0 % 12.1-15.4 PLT (test code = 777-3) 298 See_Comment [Automated messa ge] The system which generated this result transmitted reference range: 150 - 328 10*3/?L. The reference range was not used to interpret this result as normal/abnormal. MPV (test code = 57371-5) 10.0 fL 9.8-13.0 NRBC/100 WBC (test code = 0562604638) 0.0 See_Comment [Automated [employer] ssage] The system which generated this result transmitted reference range: 0.0 - 10.0 /100 WBCs. The reference range was not used to interpret this result as normal/abnormal. NRBC x10^3 (test code = 4690708570) See_Comment [Automated messa ge] The system which generated this result transmitted reference range: 10*3/?L. The reference range was not used to interpret this result as normal/abnormal. GRAN MAT (NEUT) % (test code = 770-8) 52.4 % IMM GRAN % (test code = 8278067181) 0.30 % LYMPH % (test code = 736-9) 36.6 % MONO % (test code = 5905-5) 7.2 % EOS % (test code = 713-8) 2.6 % BASO % (test code = 706-2) 0.9 % GRAN MAT x10^3(ANC) (test code = 8052777986) 5.44 10*3/uL 1.99-6.95 IMM GRAN x10^3 (test code = 0733462160) 0.03 10*3/uL 0.00-0.06 LYMPH x10^3 (test code = 731-0) 3.80 10*3/uL 1.09-3.23 H MONO x10^3 (test code = 742-7) 0.75 10*3/uL 0.36-1.02 EOS x10^3 (test code = 711-2) 0.27 10*3/uL 0.06-0.53 BASO x10^3 (test code = 704-7) 0.09 10*3/uL 0.01-0.09 Lab Interpretation (test code = 48538-1) Abnormal [facility] GLUCOSE (AUTOMATED)2023-05-26 02:18:34* Test Item Value Reference Range Interpretation Comme nts POCT GLU (test code = 5147517452) 173 mg/dL 70-110 H Lab Interpretation (test cod e = 42468-3) Abnormal [facility] GLUCOSE(AGE >30DAYS)2023-05-26 02:17:00* Test Item Value Reference Range Interpretation Comme nts POCT Glu (age>30days) (test code = 3342) 173 mg/dL 70-110 A Lab Interpretation (test cod e = 87930-4) [id number]* Test Item Value Reference Range Interpretation Comme nts TROPONIN I (test code = 4906398537) 0.008 ng/mL <=0.034 LAURIE (test code = [...] of biotin. Lab Interpretation (test code = 39037-1) [facility] 01:23:43* Test Item Value Reference Range Interpretation Comme nts POCT GLU (test code = 6901428400) 185 mg/dL 70-110 H Lab Interpretation (test cod e = 45824-8) [facility] [id number] 00:40:36* Test Item Value Reference Range Interpretation Comme nts NT-proBNP (test code = 36820-7) <=125 Lab Interpretation (test cod e = 93200-4) [facility] [id number] 00:06:55* Test Item Value Reference Range Interpretation Comme nts TROPONIN I (test code = 6915664787) 0.003 ng/mL <=0.034 LAURIE (test code = [...] of biotin. Lab Interpretation (test code = 58728-3) [facility] 23:56:12* Test Item Value Reference Range Interpretation Comme nts MAGNESIUM (test code = 6769542669) 2.0 mg/dL 1.7-2.4 Lab Interpretation (test cod e = 61032-1) Normal [facility]. METABOLIC PANEL (40706)2023-05-25 23:55:52* Test Item Value Reference Range Interpretation Comme nts NA (test code = 9989238350) 138 mmol/L 135-145 K (test code = 9763810400) 4.3 mmol/L 3.5-5.0 CL (test code = 6791540530) 103 mmol/L 98-108 CO2 TOTAL (test code = 7233141251) 22 mmol/L 23-31 L AGAP (test code = 3741556216) 13 2-16 BUN (test code = 5849270432) 22 mg/dL 7-23 GLUCOSE (test code = 7028802884) 274 mg/dL 70-110 H CREATININE (test code = 9228150881) 0.79 mg/dL 0.60-1.25 TOTAL BILI (test code = 4557143427) 0.6 mg/dL 0.1-1.1 CALCIUM (test code = 2692693554) 9.2 mg/dL 8.6-10.6 T PROTEIN (test code = 0935173889) 8.4 g/dL 6.3-8.2 H ALBUMIN (test code = 8047258262) 4.5 g/dL 3.5-5.0 ALK PHOS (test code = 1303400698) 88 U/L 34-122 ALTv (test code = 1742-6) 48 U/L 5-50 AST(SGOT) (test code = 8586864554) 37 U/L 13-40 eGFR (test code = 6130741010) 106.1 mL/min/1.73m2 LAURIE (test code = LAURIE) [...] imaging tests). Lab Interpretation (test code = 89438-0) [facility] 23:55:32* Test Item Value Reference Range Interpretation Comme nts LIPASE (test code = 1848795860) 154 U/L 0-220 Lab Interpretation (test cod e = 26005-7) [facility] [id number] 23:33:34* Test Item Value Reference Range Interpretation Comme nts WBC (test code = 6690-2) 9.32 See_Comment [Automated Integrity Tracking] The system which generated this result transmitted reference range: 4.20 - 10.70 10*3/?L. The reference range was not used to interpret this result as normal/abnormal. RBC (test code = 789-8) 4.89 See_Comment [Automated Integrity Tracking] The system which generated this result transmitted [...] 33.7 g/dL 31.2-35.0 RDW-SD (test code = 39528-6) 45.4 fL 38.5-51.6 RDW-CV (test code = 788-0) 13.4 % 12.1-15.4 PLT (test code = 777-3) 286 See_Comment [Automated messa ge] The system which generated this result transmitted reference range: 150 - 328 10*3/?L. The reference range was not used to interpret this result as normal/abnormal. MPV (test code = 50579-8) 10.2 fL 9.8-13.0 NRBC/100 WBC (test code = 1767166702) 0.0 See_Comment [Automated me ssage] The system which generated this result transmitted reference range: 0.0 - 10.0 /100 WBCs. The reference range was not used to interpret this result as normal/abnormal. NRBC x10^3 (test code = 0738273977) See_Comment [Automated me ssage] The system which generated this result transmitted reference range: 10*3/?L. The reference range was not used to interpret this result as normal/abnormal. GRAN MAT (NEUT) % (test code = 770-8) 57.3 % IMM GRAN % (test code = 9627311378) 0.40 % LYMPH % (test code = 736-9) 32.6 % MONO % (test code = 5905-5) 6.8 % EOS % (test code = 713-8) 1.9 % BASO % (test code = 706-2) 1.0 % GRAN MAT x10^3(ANC) (test code = 6041046525) 5.34 10*3/uL 1.99-6.95 IMM GRAN x10^3 (test code = 4202403559) 0.04 10*3/uL 0.00-0.06 LYMPH x10^3 (test code = 731-0) 3.04 10*3/uL 1.09-3.23 MONO x10^3 (test code = 742-7) 0.63 10*3/uL 0.36-1.02 EOS x10^3 (test code = 711-2) 0.18 10*3/uL 0.06-0.53 BASO x10^3 (test code = 704-7) 0.09 10*3/uL 0.01-0.09 General acute hospital with [id number] 07:42:13* Test Item Value Reference Range Interpretation [...] 33.3 g/dL 31.2-35.0 RDW-SD (test code = 71995-5) 44.4 fL 38.5-51.6 RDW-CV (test code = 788-0) 13.6 % 12.1-15.4 PLT (test code = 777-3) 187 See_Comment [Automated messa ge] The system which generated this result transmitted reference range: 150 - 328 10*3/?L. The reference range was not used to interpret this result as normal/abnormal. MPV (test code = 45846-3) 10.4 fL 9.8-13.0 NRBC/100 WBC (test code = 8725539278) 0.0 See_Comment [Automated me ssage] The system which generated this result transmitted reference range: 0.0 - 10.0 /100 WBCs. The reference range was not used to interpret this result as normal/abnormal. NRBC x10^3 (test code = 0103312638) See_Comment [Automated messa ge] The system which generated this result transmitted reference range: 10*3/?L. The reference range was not used to interpret this result as normal/abnormal. GRAN MAT (NEUT) % (test code = 770-8) 55.0 % IMM GRAN % (test code = 1321247391) 0.50 % LYMPH % (test code = 736-9) 34.8 % MONO % (test code = 5905-5) 6.5 % EOS % (test code = 713-8) 2.5 % BASO % (test code = 706-2) 0.7 % GRAN MAT x10^3(ANC) (test code = 5396245967) 5.95 10*3/uL 1.99-6.95 IMM GRAN x10^3 (test code = 3392847517) 0.05 10*3/uL 0.00-0.06 LYMPH x10^3 (test code = 731-0) 3.77 10*3/uL 1.09-3.23 H MONO x10^3 (test code = 742-7) 0.70 10*3/uL 0.36-1.02 EOS x10^3 (test code = 711-2) 0.27 10*3/uL 0.06-0.53 BASO x10^3 (test code = 704-7) 0.08 10*3/uL 0.01-0.09 Lab Interpretation (test code = 03798-4) [facility] Metabolic [id number] 07:32:47* Test Item Value Reference Range Interpretation Comme nts NA (test code = 0224225341) 136 mmol/L 135-145 K (test code = 0170753317) 4.2 mmol/L 3.5-5.0 CL (test code = 7583231740) 104 mmol/L 98-108 CO2 TOTAL (test code = 3044773163) 21 mmol/L 23-31 L AGAP (test code = 1688887957) 11 2-16 BUN (test code = 8992589965) 17 mg/dL 7-23 GLUCOSE (test code = 7816631923) 125 mg/dL 70-110 H CREATININE (test code = 2185266598) 0.63 mg/dL 0.60-1.25 TOTAL BILI (test code = 7197346138) 0.3 mg/dL 0.1-1.1 CALCIUM (test code = 5068575462) 9.3 mg/dL 8.6-10.6 T PROTEIN (test code = 5814951467) 7.8 g/dL 6.3-8.2 ALBUMIN (test code = 1158840322) 4.5 g/dL 3.5-5.0 ALK PHOS (test code = 4007973227) 97 U/L 34-122 ALTv (test code = 1742-6) 42 U/L 5-50 AST(SGOT) (test code = 8729577166) 34 U/L 13-40 eGFR (test code = 9956338327) 137.7 mL/min/1.73m2 LAURIE (test code = LAURIE) [...] imaging tests). Lab Interpretation (test code = 45622-1) [facility]normal [facility] RegionalLip[facility], [id number] 07:31:52* Test Item Value Reference Range Interpretation Comme nts LIPASE (test code = 3305076601) 73 U/L 0-220 Lab Interpretation (test cod e = 58531-8) [facility]THYROID STIMULATING [id number] 18:17:21 * Test Item Value Reference Range Interpretation Comme nts TSH (test code = 9953058149) See_Comment H [Automated messa ge] The system which generated this result transmitted reference range: 0.45 - 4.70 mIU/L. The reference range was not used to interpret this result as normal/abnormal. Lab Interpretation (test code = 60217-5) Abnormal [facility] [id number] 16:53:41* Test Item Value Reference Range Interpretation Comme nts FREE T4 (test code = 8783716563) See_Comment L [Automated messa ge] The system which generated this result transmitted reference range: 0.78 - 2.20 ng/dL:. The reference range was not used to interpret this result as normal/abnormal. Lab Interpretation (test code = 53544-2) Abnormal [facility] [id number] 16:53:04* Test Item Value Reference Range Interpretation Comme nts FREE T3 (test code = 6026164018) 1.50 pg/mL 2.77-5.27 L Lab Interpretation (test cod e = 36582-4) [facility] METABOLIC PANEL (34160)2022-05-28 16:37:03* Test Item Value Reference Range Interpretation Comme nts NA (test code = 9109656516) 138 mmol/L 135-145 K (test code = 1741523151) 4.4 mmol/L 3.5-5 CL (test code = 9424202975) 101 mmol/L 98-108 CO2 TOTAL (test code = 0433817928) 27 mmol/L 23-31 AGAP (test code = 5963528261) 2-16 BUN (test code = 7818803171) 14 mg/dL 7-23 GLUCOSE (test code = 1395806117) 102 mg/dL 70-110 CREATININE (test code = 2885624401) 0.82 mg/dL 0.6-1.25 TOTAL BILI (test code = 5366952163) 0.5 mg/dL 0.1-1.1 CALCIUM (test code = 3311835076) 9.3 mg/dL 8.6-10.6 T PROTEIN (test code = 4671743312) 8.3 g/dL 6.3-8.2 H ALBUMIN (test code = 5707767218) 4.8 g/dL 3.5-5 ALK PHOS (test code = 3137789881) 75 U/L 34-122 ALTv (test code = 1742-6) 56 U/L 5-50 H AST(SGOT) (test code = 9921952799) 42 U/L 13-40 H eGFR (test code = 4114405472) mL/min/1.73m2 LAURIE (test code = LAURIE) Association [...] imaging tests). Lab Interpretation (test code = 28485-8) Abnormal General acute hospital WITH [id number] 16:25:38* Test Item Value Reference Range Interpretation [...] 33.0 g/dL 31.2-35 RDW-SD (test code = 69602-7) 48.1 fL 38.5-51.6 RDW-CV (test code = 788-0) 14.2 % 12.1-15.4 PLT (test code = 777-3) See_Comment [Automated messa ge] The system which generated this result transmitted reference range: 150 - 328 10*3/?L. The reference range was not used to interpret this result as normal/abnormal. MPV (test code = 86354-7) 9.5 fL 9.8-13 L NRBC/100 WBC (test code = 4829047863) See_Comment [Automated [employer] ssage] The system which generated this result transmitted reference range: 0.0 - 10.0 /100 WBCs. The reference range was not used to interpret this result as normal/abnormal. NRBC x10^3 (test code = 5147405648) See_Comment [Automated messa ge] The system which generated this result transmitted reference range: 10*3/?L. The reference range was not used to interpret this result as normal/abnormal. GRAN MAT (NEUT) % (test code = 770-8) 56.3 % IMM GRAN % (test code = 3006777585) 0.70 % LYMPH % (test code = 736-9) 32.8 % MONO % (test code = 5905-5) 6.2 % EOS % (test code = 713-8) 2.7 % BASO % (test code = 706-2) 1.3 % GRAN MAT x10^3(ANC) (test code = 8709243351) 4.87 10*3/uL 1.99-6.95 IMM GRAN x10^3 (test code = 3738525464) 0.06 10*3/uL 0-0.06 LYMPH x10^3 (test code = 731-0) 2.84 10*3/uL 1.09-3.23 MONO x10^3 (test code = 742-7) 0.54 10*3/uL 0.36-1.02 EOS x10^3 (test code = 711-2) 0.23 10*3/uL 0.06-0.53 BASO x10^3 (test code = 704-7) 0.11 10*3/uL 0.01-0.09 H Lab Interpretation (test code = 63183-7) [facility] 06:03:53* Test Item Value Reference Range Interpretation Comme nts MAGNESIUM (test code = 9901169178) 1.8 mg/dL 1.7-2.4 Lab Interpretation (test cod e = 15119-3) Normal [facility]TR[facility] [id number] 06:00:52* Test Item Value Reference Range Interpretation Comments TROPONIN I (test code = 4507697920) 0.002 ng/mL See_Comment [Automated message] The system [...] of biotin. Lab Interpretation (test code = 58671-5) Normal [facility]. METABOLIC PANEL (75353)2022-05-06 05:49:11* Test Item Value Reference Range Interpretation Comme nts NA (test code = 5307476007) 136 mmol/L 135-145 K (test code = 6348041648) 4.4 mmol/L 3.5-5 CL (test code = 7113502166) 100 mmol/L 98-108 CO2 TOTAL (test code = 3936573977) 23 mmol/L 23-31 AGAP (test code = 6705084688) 2-16 BUN (test code = 9565744979) 16 mg/dL 7-23 GLUCOSE (test code = 1883621221) 116 mg/dL 70-110 H CREATININE (test code = 0366907574) 0.81 mg/dL 0.6-1.25 TOTAL BILI (test code = 2865692288) 0.6 mg/dL 0.1-1.1 CALCIUM (test code = 0576308408) 10.3 mg/dL 8.6-10.6 T PROTEIN (test code = 2164513438) 9.2 g/dL 6.3-8.2 H ALBUMIN (test code = 5547043500) 5.3 g/dL 3.5-5 H ALK PHOS (test code = 1516048611) 89 U/L 34-122 ALTv (test code = 1742-6) 44 U/L 5-50 AST(SGOT) (test code = 1597523277) 36 U/L 13-40 eGFR (test code = 4089334256) mL/min/1.73m2 LAURIE (test code = LAURIE) Association [...] imaging tests). Lab Interpretation (test code = 46616-2) [facility] 05:48:51* Test Item Value Reference Range Interpretation Comme nts LIPASE (test code = 8159009142) 67 U/L 0-220 Lab Interpretation (test cod e = 54414-5) [facility] [id number] 05:36:33* Test Item Value Reference Range Interpretation Comme nts WBC (test code = 6690-2) See_Comment H [Automated [employer]] The system which generated this result transmitted reference range: 4.20 - 10.70 10*3/?L. The reference range was not used to interpret this result as normal/abnormal. RBC (test code = 789-8) See_Comment [Automated [employer]] The system which generated this result transmitted [...] 34.1 g/dL 31.2-35 RDW-SD (test code = 25322-4) 45.9 fL 38.5-51.6 RDW-CV (test code = 788-0) 13.9 % 12.1-15.4 PLT (test code = 777-3) See_Comment [Automated messa ge] The system which generated this result transmitted reference range: 150 - 328 10*3/?L. The reference range was not used to interpret this result as normal/abnormal. MPV (test code = 87800-8) 9.5 fL 9.8-13 L NRBC/100 WBC (test code = 9157334643) See_Comment [Automated [employer] ssage] The system which generated this result transmitted reference range: 0.0 - 10.0 /100 WBCs. The reference range was not used to interpret this result as normal/abnormal. NRBC x10^3 (test code = 6702249293) See_Comment [Automated [employer]] The system which generated this result transmitted reference range: 10*3/?L. The reference range was not used to interpret this result as normal/abnormal. GRAN MAT (NEUT) % (test code = 770-8) 60.3 % IMM GRAN % (test code = 8738483688) 0.80 % LYMPH % (test code = 736-9) 27.6 % MONO % (test code = 5905-5) 6.8 % EOS % (test code = 713-8) 3.5 % BASO % (test code = 706-2) 1.0 % GRAN MAT x10^3(ANC) (test code = 9199979115) 6.95 10*3/uL 1.99-6.95 IMM GRAN x10^3 (test code = 5978732645) 0.09 10*3/uL 0-0.06 H LYMPH x10^3 (test code = 731-0) 3.19 10*3/uL 1.09-3.23 MONO x10^3 (test code = 742-7) 0.79 10*3/uL 0.36-1.02 EOS x10^3 (test code = 711-2) 0.40 10*3/uL 0.06-0.53 BASO x10^3 (test code = 704-7) 0.12 10*3/uL 0.01-0.09 H Lab Interpretation (test code = 40495-1) Abnormal [facility]. METABOLIC PANEL (19404)2022-05-01 13:28:01* Test Item Value Reference Range Interpretation Comme nts NA (test code = 3333028705) 139 mmol/L 135-145 K (test code = 7317211502) 4.7 mmol/L 3.5-5 CL (test code = 5928805151) 104 mmol/L 98-108 CO2 TOTAL (test code = 5838258129) 23 mmol/L 23-31 AGAP (test code = 6681851096) 2-16 BUN (test code = 3227224459) 14 mg/dL 7-23 GLUCOSE (test code = 7567474035) 128 mg/dL 70-110 H CREATININE (test code = 4067684633) 0.62 mg/dL 0.6-1.25 TOTAL BILI (test code = 9898308304) 0.4 mg/dL 0.1-1.1 CALCIUM (test code = 0692206596) 9.2 mg/dL 8.6-10.6 T PROTEIN (test code = 8718349659) 8.1 g/dL 6.3-8.2 ALBUMIN (test code = 1111611054) 4.6 g/dL 3.5-5 ALK PHOS (test code = 6185870405) 92 U/L 34-122 ALTv (test code = 1742-6) 43 U/L 5-50 AST(SGOT) (test code = 8311407975) 30 U/L 13-40 eGFR (test code = 3966314520) mL/min/1.73m2 LAURIE (test code = LAURIE) Association [...] imaging tests). Lab Interpretation (test code = 51651-8) Abnormal [facility] acute hospital WITH [id number] 13:20:02* Test Item Value Reference Range Interpretation Comme nts WBC (test code = 6690-2) See_Comment [[employer]] The system which generated this result transmitted reference range: 4.20 - 10.70 10*3/?L. The reference range was not used to interpret this result as normal/abnormal. RBC (test code = 789-8) See_Comment [Automated Integrity Tracking] The system which generated this result transmitted [...] 32.8 g/dL 31.2-35 RDW-SD (test code = 57888-8) 47.5 fL 38.5-51.6 RDW-CV (test code = 788-0) 14.1 % 12.1-15.4 PLT (test code = 777-3) See_Comment [Automated [employer]] The system which generated this result transmitted reference range: 150 - 328 10*3/?L. The reference range was not used to interpret this result as normal/abnormal. MPV (test code = 99244-3) 9.3 fL 9.8-13 L NRBC/100 WBC (test code = 1247770204) See_Comment [Automated [employer] ssage] The system which generated this result transmitted reference range: 0.0 - 10.0 /100 WBCs. The reference range was not used to interpret this result as normal/abnormal. NRBC x10^3 (test code = 6965070771) See_Comment [Automated [employer]] The system which generated this result transmitted reference range: 10*3/?L. The reference range was not used to interpret this result as normal/abnormal. GRAN MAT (NEUT) % (test code = 770-8) 58.9 % IMM GRAN % (test code = 5369317823) 0.60 % LYMPH % (test code = 736-9) 29.2 % MONO % (test code = 5905-5) 6.8 % EOS % (test code = 713-8) 3.5 % BASO % (test code = 706-2) 1.0 % GRAN MAT x10^3(ANC) (test code = 9799424201) 5.80 10*3/uL 1.99-6.95 IMM GRAN x10^3 (test code = 5493090125) 0.06 10*3/uL 0-0.06 LYMPH x10^3 (test code = 731-0) 2.87 10*3/uL 1.09-3.23 MONO x10^3 (test code = 742-7) 0.67 10*3/uL 0.36-1.02 EOS x10^3 (test code = 711-2) 0.34 10*3/uL 0.06-0.53 BASO x10^3 (test code = 704-7) 0.10 10*3/uL 0.01-0.09 H Lab Interpretation (test code = 53684-8) [facility] [id number] 07:04:38* Test Item Value Reference Range Interpretation Comments TROPONIN I (test code = 9594338892) 0.002 ng/mL See_Comment [Automated message] The system [...] of biotin. Lab Interpretation (test code = 82585-4) [facility] [id number] 07:00:14* Test Item Value Reference Range Interpretation Comme nts NT-proBNP (test code = 0867817819) 25 pg/mL See_Comment [Automated message] The system which generated this result transmitted reference range: <=125. The reference range was not used to interpret this result as normal/abnormal. LAURIE (test code = LAURIE) Biotin has been reported to cause a negative bias, interpret results relative to patient's use of biotin. Lab Interpretation (test code = 29611-6) [facility]ETHANOL2022-[facility] 06:53:02* Test Item Value Reference Range Interpretation Comme nts ALCOHOL (test code = 9034856441) <10 mg/dL LAURIE (test code = LAURIE) <10 Pwokolfo78-371 Toxic>100 Depression of PASTE MIXER>400 Fatalities Reported [facility] 06:50:57* Test Item Value Reference Range Interpretation Comme nts LIPASE (test code = 0527575290) 65 U/L 0-220 Lab Interpretation (test cod e = 92372-9) Normal [facility]. METABOLIC PANEL (37104)2022-02-08 06:50:57* Test Item Value Reference Range Interpretation Comme nts NA (test code = 1480467732) 138 mmol/L 135-145 K (test code = 4577598372) 4.3 mmol/L 3.5-5.0 CL (test code = 8185267508) 103 mmol/L 98-108 CO2 TOTAL (test code = 2261318194) 23 mmol/L 23-31 AGAP (test code = 7037837873) 2-16 BUN (test code = 2412747629) 14 mg/dL 7-23 GLUCOSE (test code = 0214458280) 142 mg/dL 70-110 H CREATININE (test code = 7223107833) 0.60 mg/dL 0.60-1.25 TOTAL BILI (test code = 4602138793) 0.5 mg/dL 0.1-1.1 CALCIUM (test code = 9576919545) 9.1 mg/dL 8.6-10.6 T PROTEIN (test code = 6176066304) 7.9 g/dL 6.3-8.2 ALBUMIN (test code = 2839116204) 4.5 g/dL 3.5-5.0 ALK PHOS (test code = 9581934121) 81 U/L 34-122 ALTv (test code = 1742-6) 28 U/L 5-50 AST(SGOT) (test code = 1240882417) 24 U/L 13-40 eGFR (test code = 1399923110) mL/min/1.73m2 LAURIE (test code = LAURIE) Association [...] imaging tests). Lab Interpretation (test code = 95547-7) [facility] [id number] 06:47:31* Test Item Value Reference Range Interpretation Comme [facility] APTT Patient (test code = 3173-2) See_Comment [Automated message] The system which generated this result transmitted reference range: 23 - 38 Seconds. The reference range was not used to interpret this result as normal/abnormal. LAURIE (test code = LAURIE) The [facility] patient population mean normal value for aPTT is 30 seconds. Lab Interpretation (test code = 98361-1) Normal [facility] / [id number] 06:45:33* Test Item Value Reference Range Interpretation Comme [facility] PROTIME PATIENT (test code = 5964-2) See_Comment [Automated [employer] ge] The system which generated this result transmitted reference range: 12.0 - 14.7 Seconds. The reference range was not used to interpret this result as normal/abnormal. INR (test code = 6301-6) Normal INR <1.1; Warfarin Therapeutic range 2.0 to 3.0 or 2.5 to 3.5, depending upon the indications. Lab Interpretation (test code = 59512-7) [facility] [id number] 06:37:36* Test Item Value Reference Range Interpretation Comme nts WBC (test code = 6690-2) See_Comment [Automated messa ge] The system which generated this result transmitted reference range: 4.20 - 10.70 10*3/?L. The reference range was not used to interpret this result as normal/abnormal. RBC (test code = 789-8) See_Comment [Automated [employer] ge] The system which generated this result [...] 33.4 g/dL 31.2-35.0 RDW-SD (test code = 40536-9) 42.7 fL 38.5-51.6 RDW-CV (test code = 788-0) 13.1 % 12.1-15.4 PLT (test code = 777-3) See_Comment [Automated [employer] ge] The system which generated this result transmitted reference range: 150 - 328 10*3/?L. The reference range was not used to interpret this result as normal/abnormal. MPV (test code = 05954-5) 9.7 fL 9.8-13.0 L NRBC/100 WBC (test code = 4006388137) See_Comment [Automated [employer] ssage] The system which generated this result transmitted reference range: 0.0 - 10.0 /100 WBCs. The reference range was not used to interpret this result as normal/abnormal. NRBC x10^3 (test code = 0918808128) <0.01 See_Comment [Automated messa ge] The system which generated this result transmitted reference range: 10*3/?L. The reference range was not used to interpret this result as normal/abnormal. GRAN MAT (NEUT) % (test code = 770-8) 54.9 % IMM GRAN % (test code = 9539435389) 0.70 % LYMPH % (test code = 736-9) 32.9 % MONO % (test code = 5905-5) 8.7 % EOS % (test code = 713-8) 2.0 % BASO % (test code = 706-2) 0.8 % GRAN MAT x10^3(ANC) (test code = 7554715328) 5.84 10*3/uL 1.99-6.95 IMM GRAN x10^3 (test code = 8222886586) 0.07 10*3/uL 0.00-0.06 H LYMPH x10^3 (test code = 731-0) 3.50 10*3/uL 1.09-3.23 H MONO x10^3 (test code = 742-7) 0.92 10*3/uL 0.36-1.02 EOS x10^3 (test code = 711-2) 0.21 10*3/uL 0.06-0.53 BASO x10^3 (test code = 704-7) 0.09 10*3/uL 0.01-0.09 Lab Interpretation (test code = 60403-4) [id number] Test Item Value Reference Range Interpretation Comments TROPONIN I (test code = 5989991792) 0.003 ng/mL See_Comment [Automated message] The system which generated this result transmitted reference range: <=0.034. The reference range was not used to interpret this result as normal/abnormal. LARUIE (test code = LAURIE) Reference (Normal) Range [...] of biotin. Lab Interpretation (test code = 53433-3) [facility] (06250)2021-10-15 00:56:56* Test Item Value Reference Range Interpretation Comme nts NA (test code = 5267876679) 135 mmol/L 135-145 K (test code = 8946351719) 4.6 mmol/L 3.5-5.0 CL (test code = 8337198043) 101 mmol/L 98-108 CO2 TOTAL (test code = 1229343737) 25 mmol/L 23-31 AGAP (test code = 2586906902) 2-16 BUN (test code = 6853858437) 20 mg/dL 7-23 GLUCOSE (test code = 0457307365) 130 mg/dL 70-110 H CREATININE (test code = 2407021604) 0.92 mg/dL 0.60-1.25 TOTAL BILI (test code = 6637830609) 0.4 mg/dL 0.1-1.1 CALCIUM (test code = 2539411215) 10.0 mg/dL 8.6-10.6 T PROTEIN (test code = 9852184272) 8.5 g/dL 6.3-8.2 H ALBUMIN (test code = 1395780633) 4.8 g/dL 3.5-5.0 ALK PHOS (test code = 4386723234) 89 U/L 34-122 ALTv (test code = 1742-6) 59 U/L 5-50 H AST(SGOT) (test code = 1808611112) 38 U/L 13-40 eGFR (test code = 4006228371) mL/min/1.73m2 LAURIE (test code = LAURIE) Association [...] imaging tests). Lab Interpretation (test code = 54485-1) [facility] 00:56:36* Test Item Value Reference Range Interpretation Comme nts LIPASE (test code = 4053977980) 77 U/L 0-220 Lab Interpretation (test cod e = 52128-5) Normal [facility] acute [facility] WITH [id number] 00:37:36* Test Item Value Reference Range Interpretation Comme nts WBC (test code = 6690-2) See_Comment [Automated Integrity Tracking] The system which generated this result transmitted reference range: 4.20 - 10.70 10*3/?L. The reference range was not used to interpret this result as normal/abnormal. RBC (test code = 789-8) See_Comment [[employer]] The system which generated this result transmitted [...] 33.6 g/dL 31.2-35.0 RDW-SD (test code = 51635-9) 44.2 fL 38.5-51.6 RDW-CV (test code = 788-0) 13.3 % 12.1-15.4 PLT (test code = 777-3) See_Comment [Automated messa ge] The system which generated this result transmitted reference range: 150 - 328 10*3/?L. The reference range was not used to interpret this result as normal/abnormal. MPV (test code = 96220-5) 9.5 fL 9.8-13.0 L NRBC/100 WBC (test code = 5168387334) See_Comment [Automated [employer] ssage] The system which generated this result transmitted reference range: 0.0 - 10.0 /100 WBCs. The reference range was not used to interpret this result as normal/abnormal. NRBC x10^3 (test code = 2739914884) <0.01 See_Comment [Automated messa ge] The system which generated this result transmitted reference range: 10*3/?L. The reference range was not used to interpret this result as normal/abnormal. GRAN MAT (NEUT) % (test code = 770-8) 55.3 % IMM GRAN % (test code = 8754767507) 0.60 % LYMPH % (test code = 736-9) 32.5 % MONO % (test code = 5905-5) 7.8 % EOS % (test code = 713-8) 2.7 % BASO % (test code = 706-2) 1.1 % GRAN MAT x10^3(ANC) (test code = 9812009634) 5.74 10*3/uL 1.99-6.95 IMM GRAN x10^3 (test code = 3555760908) 0.06 10*3/uL 0.00-0.06 LYMPH x10^3 (test code = 731-0) 3.37 10*3/uL 1.09-3.23 H MONO x10^3 (test code = 742-7) 0.81 10*3/uL 0.36-1.02 EOS x10^3 (test code = 711-2) 0.28 10*3/uL 0.06-0.53 BASO x10^3 (test code = 704-7) 0.11 10*3/uL 0.01-0.09 H Lab Interpretation (test code = 74793-9) [facility] NOW RAPID TESTING)2021-03-15 04:10:11* Test Item Value Reference Range Interpretation Comme nts SARS-CoV-2 Rapid ID NOW (test code = 56152-2) Not Detected Not Detected LAURIE (test code = LAURIE) ID NOW COVID-19 As say is an isothermal nucleic acid amplification test intended for the qualitative detection of nucleic acid from SARS-CoV-2 viral RNA in nasopharyngeal (WELDING MACHINE [employer]) specimens. It is used under Emergency Use [...] clinically indicated. Lab Interpretation (test code = 47479-8) Normal [facility] (50441)2021-03-15 03:35:30* Test Item Value Reference Range Interpretation Comme nts NA (test code = 3668629680) 139 mmol/L 135-145 K (test code = 5284998645) 3.2 mmol/L 3.5-5.0 L CL (test code = 7354997892) 109 mmol/L 98-108 H CO2 TOTAL (test code = 0299959085) 23 mmol/L 23-31 AGAP (test code = 9634655215) 2-16 BUN (test code = 9453324693) 19 mg/dL 7-23 GLUCOSE (test code = 3580656683) 150 mg/dL 70-110 H CREATININE (test code = 8925210372) 0.81 mg/dL 0.60-1.25 TOTAL BILI (test code = 8892412712) 0.3 mg/dL 0.1-1.1 CALCIUM (test code = 9351434377) 8.2 mg/dL 8.6-10.6 L T PROTEIN (test code = 7348975475) 6.9 g/dL 6.3-8.2 ALBUMIN (test code = 8856872874) 4.0 g/dL 3.5-5.0 ALK PHOS (test code = 9418060484) 77 U/L 34-122 ALTv (test code = 1742-6) 22 U/L 5-50 AST(SGOT) (test code = 7914147347) 26 U/L 13-40 eGFR (test code = 1858895093) mL/min/1.73m2 LAURIE (test code = LAURIE) Association [...] imaging tests). Lab Interpretation (test code = 60460-6) Abnormal [facility] [id number] 03:35:00* Test Item Value Reference Range Interpretation Comme nts APPEARANCE (test code = 2069555533) Clear Clear COLOR (test code = 8661028186) Yellow Yellow PH (test code = 4002851596) 4.8-8.0 SP GRAVITY (test code = 4182577862) 1.003-1.030 GLU U QUAL (test code = 3417726288) Normal Normal BLOOD (test code = 6683153091) Negative Negative KETONES (test code = 4040214218) 5 mg/dL Negative A PROTEIN (test code = 2887-8) Negative Negative UROBILIN (test code = 7202428353) Normal Normal BILIRUBIN (test code = 3283122385) Negative Negative NITRITE (test code = 0985053604) Negative Negative LEUK KENNY (test code = 9901294509) Negative Negative RBC/HPF (test code = 5576721752) <1 See_Comment [Automated messa ge] The system which generated this result transmitted reference range: 0 - 3 HPF. The reference range was not used to interpret this result as normal/abnormal. WBC/HPF (test code = 7063117704) <1 See_Comment [Automated messa ge] The system which generated this result transmitted reference range: 0 - 5 HPF. The reference range was not used to interpret this result as normal/abnormal. BACTERIA (test code = 5175024262) Negative Negative MUCOUS (test code = 1678377393) Slight Negative LPF A SQ EPITH (test code = 6653726821) <1 HPF Lab Interpretation (test code = 26412-6) Abnormal [facility] acute [facility] WITH [id number] 03:22:25* Test Item Value Reference Range Interpretation [...] 33.3 g/dL 31.2-35.0 RDW-SD (test code = 70330-0) 45.8 fL 38.5-51.6 RDW-CV (test code = 788-0) 13.7 % 12.1-15.4 PLT (test code = 777-3) See_Comment H [Automated messa ge] The system which generated this result transmitted reference range: 150 - 328 10*3/?L. The reference range was not used to interpret this result as normal/abnormal. MPV (test code = 75996-5) 9.4 fL 9.8-13.0 L NRBC/100 WBC (test code = 2517544414) See_Comment [Automated [employer] ssage] The system which generated this result transmitted reference range: 0.0 - 10.0 /100 WBCs. The reference range was not used to interpret this result as normal/abnormal. NRBC x10^3 (test code = 5114152100) <0.01 See_Comment [Automated messa ge] The system which generated this result transmitted reference range: 10*3/?L. The reference range was not used to interpret this result as normal/abnormal. GRAN MAT (NEUT) % (test code = 770-8) 58.4 % IMM GRAN % (test code = 1435248434) 0.50 % LYMPH % (test code = 736-9) 30.5 % MONO % (test code = 5905-5) 7.5 % EOS % (test code = 713-8) 2.2 % BASO % (test code = 706-2) 0.9 % GRAN MAT x10^3(ANC) (test code = 6673958811) 5.75 10*3/uL 1.99-6.95 IMM GRAN x10^3 (test code = 7892649991) 0.05 10*3/uL 0.00-0.06 LYMPH x10^3 (test code = 731-0) 3.00 10*3/uL 1.09-3.23 MONO x10^3 (test code = 742-7) 0.74 10*3/uL 0.36-1.02 EOS x10^3 (test code = 711-2) 0.22 10*3/uL 0.06-0.53 BASO x10^3 (test code = 704-7) 0.09 10*3/uL 0.01-0.09 Lab Interpretation (test code = 03392-4) [facility]normal [facility] (56859)2020-09-08 23:50:00* Test Item Value Reference Range Interpretation Comme nts NA (test code = 5672874133) 139 mmol/L 135-145 K (test code = 6989407572) 4.1 mmol/L 3.5-5 CL (test code = 3229474342) 107 mmol/L 98-108 CO2 TOTAL (test code = 4474709604) 22 mmol/L 23-31 L AGAP (test code = 7062055231) 2-16 BUN (test code = 7173324438) 12 mg/dL 7-23 GLUCOSE (test code = 2124730605) 115 mg/dL 70-110 H CREATININE (test code = 6461860020) 0.54 mg/dL 0.6-1.25 L TOTAL BILI (test code = 4399472142) 0.3 mg/dL 0.1-1.1 CALCIUM (test code = 5769652424) 9.3 mg/dL 8.6-10.6 T PROTEIN (test code = 8964790474) 7.6 g/dL 6.3-8.2 ALBUMIN (test code = 6864087444) 4.3 g/dL 3.5-5 ALK PHOS (test code = 5653332693) 80 U/L 34-122 ALTv (test code = 1742-6) 21 U/L 5-50 AST(SGOT) (test code = 9383014750) 21 U/L 13-40 eGFR Calculation (Non-) (test code = 5783137220) mL/min/1.73m2 eGFR Calculation () (test code = 1883650075) mL/min/1.73m2 LAURIE (test code = LAURIE) Association [...] imaging tests). Lab Interpretation (test code = 46979-8) [facility]2020-[facility] 23:50:00* Test Item Value Reference Range Interpretation Comme nts LIPASE (test code = 1592147840) 68 U/L 0-220 Lab Interpretation (test cod e = 70236-7) Normal [facility] WITH [id number] 23:22:00* Test Item Value Reference Range Interpretation Comme nts WBC (test code = 6690-2) See_Comment [Automated Integrity Tracking] The system which generated this result transmitted reference range: 4.20 - 10.70 10*3/?L. The reference range was not used to interpret this result as normal/abnormal. RBC (test code = 789-8) See_Comment [Automated Integrity Tracking] The system which generated this result transmitted [...] 34.1 g/dL 31.2-35 RDW-SD (test code = 72182-0) 40.8 fL 38.5-51.6 RDW-CV (test code = 788-0) 12.5 % 12.1-15.4 PLT (test code = 777-3) See_Comment [Automated [employer]] The system which generated this result transmitted reference range: 150 - 328 10*3/?L. The reference range was not used to interpret this result as normal/abnormal. MPV (test code = 32921-3) 9.1 fL 9.8-13 L NRBC/100 WBC (test code = 8362745785) See_Comment [Automated [employer] ss[employer]] The system which generated this result transmitted reference range: 0.0 - 10.0 /100 WBCs. The reference range was not used to interpret this result as normal/abnormal. NRBC x10^3 (test code = 1318054828) <0.01 See_Comment [Automated [employer] ge] The system which generated this result transmitted reference range: 10*3/?L. The reference range was not used to interpret this result as normal/abnormal. GRAN MAT (NEUT) % (test code = 770-8) 59.0 % IMM GRAN % (test code = 7408040253) 0.60 % LYMPH % (test code = 736-9) 31.3 % MONO % (test code = 5905-5) 6.6 % EOS % (test code = 713-8) 1.9 % BASO % (test code = 706-2) 0.6 % GRAN MAT x10^3(ANC) (test code = 8355974128) 5.85 10*3/uL 1.99-6.95 IMM GRAN x10^3 (test code = 5463808311) 0.06 10*3/uL 0-0.06 LYMPH x10^3 (test code = 731-0) 3.10 10*3/uL 1.09-3.23 MONO x10^3 (test code = 742-7) 0.65 10*3/uL 0.36-1.02 EOS x10^3 (test code = 711-2) 0.19 10*3/uL 0.06-0.53 BASO x10^3 (test code = 704-7) 0.06 10*3/uL 0.01-0.09 Lab Interpretation (test code = 35234-2) [facility]normal [facility] PEL[facility] W [id number] 17:21:17CT Abdomen and Pelvis with intravenous contrast. [...] fluid inthe abdomen or in the pelvis.2. Hepatomegaly.[facility]. METABOLIC PANEL (76699)2020-09-06 16:39:00* Test Item Value Reference Range Interpretation Comme nts NA (test code = 8053444482) 138 mmol/L 135-145 K (test code = 4268324396) 4.2 mmol/L 3.5-5 CL (test code = 3326450385) 103 mmol/L 98-108 CO2 TOTAL (test code = 2349419210) 25 mmol/L 23-31 AGAP (test code = 1393127066) 2-16 BUN (test code = 3098819354) 17 mg/dL 7-23 GLUCOSE (test code = 5509098668) 124 mg/dL 70-110 H CREATININE (test code = 2014596417) 0.95 mg/dL 0.6-1.25 TOTAL BILI (test code = 5084714557) 0.4 mg/dL 0.1-1.1 CALCIUM (test code = 1987532704) 9.7 mg/dL 8.6-10.6 T PROTEIN (test code = 5581288243) 7.9 g/dL 6.3-8.2 ALBUMIN (test code = 4020459346) 4.5 g/dL 3.5-5 ALK PHOS (test code = 3920546327) 75 U/L 34-122 ALTv (test code = 1742-6) 28 U/L 5-50 AST(SGOT) (test code = 0143520927) 23 U/L 13-40 eGFR Calculation (Non-) (test code = 7004432262) mL/min/1.73m2 eGFR Calculation () (test code = 6615507629) mL/min/1.73m2 LAURIE (test code = LAURIE) Association [...] imaging tests). Lab Interpretation (test code = 28729-1) [facility]2020-[facility] 16:39:00* Test Item Value Reference Range Interpretation Comme nts LIPASE (test code = 4503693425) 70 U/L 0-220 Lab Interpretation (test cod e = 02421-6) Normal [facility]MAG[facility]UM2020-11-18 16:39:00* Test Item Value Reference Range Interpretation Comme nts MAGNESIUM (test code = 9995348634) 1.9 mg/dL 1.7-2.4 Lab Interpretation (test cod e = 41199-7) Normal [facility] RegionalLactic Acid Whole [id number] 16:38:00* Test Item Value Reference Range Interpretation Comme nts LACTIC ACID (test code = 8733574912) 1.51 mmol/L [facility] WITH [id number] 16:20:00* Test Item Value Reference Range Interpretation Comme nts WBC (test code = 6690-2) See_Comment [Automated Integrity Tracking] The system which generated this result transmitted [...] 32.8 g/dL 31.2-35 RDW-SD (test code = 55396-7) 42.2 fL 38.5-51.6 RDW-CV (test code = 788-0) 12.6 % 12.1-15.4 PLT (test code = 777-3) See_Comment [Automated [employer]] The system which generated this result transmitted reference range: 150 - 328 10*3/?L. The reference range was not used to interpret this result as normal/abnormal. MPV (test code = 12165-2) 9.3 fL 9.8-13 L NRBC/100 WBC (test code = 7273723412) See_Comment [Automated [employer]] The system which generated this result transmitted reference range: 0.0 - 10.0 /100 WBCs. The reference range was not used to interpret this result as normal/abnormal. NRBC x10^3 (test code = 9488904931) <0.01 See_Comment [Automated [employer]] The system which generated this result transmitted reference range: 10*3/?L. The reference range was not used to interpret this result as normal/abnormal. GRAN MAT (NEUT) % (test code = 770-8) 64.9 % IMM GRAN % (test code = 1776622308) 0.50 % LYMPH % (test code = 736-9) 25.0 % MONO % (test code = 5905-5) 7.5 % EOS % (test code = 713-8) 1.3 % BASO % (test code = 706-2) 0.8 % GRAN MAT x10^3(ANC) (test code = 7095402747) 5.99 10*3/uL 1.99-6.95 IMM GRAN x10^3 (test code = 4671064030) 0.05 10*3/uL 0-0.06 LYMPH x10^3 (test code = 731-0) 2.31 10*3/uL 1.09-3.23 MONO x10^3 (test code = 742-7) 0.69 10*3/uL 0.36-1.02 EOS x10^3 (test code = 711-2) 0.12 10*3/uL 0.06-0.53 BASO x10^3 (test code = 704-7) 0.07 10*3/uL 0.01-0.09 Lab Interpretation (test code = 13998-6) [facility]97120[facility]2020-[facility]30 10:29:00* Test Item Value Reference Range Interpretation Comme nts NA (test code = 8213381079) 139 mmol/L 135-145 K (test code = 0330458721) 4.7 mmol/L 3.5-5 CL (test code = 0968008806) 105 mmol/L 98-108 CO2 TOTAL (test code = 3068797486) 24 mmol/L 23-31 AGAP (test code = 0695087003) 2-16 BUN (test code = 9361595108) 21 mg/dL 7-23 GLUCOSE (test code = 9437299350) 109 mg/dL 70-110 CREATININE (test code = 1821652505) 0.99 mg/dL 0.6-1.25 TOTAL BILI (test code = 8685060017) 0.4 mg/dL 0.1-1.1 CALCIUM (test code = 6628922473) 9.4 mg/dL 8.6-10.6 T PROTEIN (test code = 7532688441) 7.4 g/dL 6.3-8.2 ALBUMIN (test code = 3912893384) 4.2 g/dL 3.5-5 ALK PHOS (test code = 3475935185) 68 U/L 34-122 ALTv (test code = 1742-6) 33 U/L 5-50 AST(SGOT) (test code = 4130725221) 28 U/L 13-40 eGFR Calculation (Non-) (test code = 5190219701) mL/min/1.73m2 eGFR Calculation () (test code = 2634015868) mL/min/1.73m2 LAURIE (test code = LAURIE) Association [...] or urine or abnormalities in imaging tests). [facility] acute hospital WITH [id number] 09:50:00* Test Item Value Reference Range Interpretation [...] 32.4 g/dL 31.2-35 RDW-SD (test code = 43030-2) 43.6 fL 38.5-51.6 RDW-CV (test code = 788-0) 13.0 % 12.1-15.4 PLT (test code = 777-3) See_Comment [Automated message] The system which generated this result transmitted reference range: 150 - 328 10*3/?L. The reference range was not used to interpret this result as normal/abnormal. MPV (test code = 61996-1) 10.0 fL 9.8-13 NRBC/100 WBC (test code = 5018147153) See_Comment [Automated message] The system which generated this result transmitted reference range: 0.0 - 10.0 /100 WBCs. The reference range was not used to interpret this result as normal/abnormal. NRBC x10^3 (test code = 5516357173) <0.01 See_Comment [Automated message] The system which generated this result transmitted reference range: 10*3/?L. The reference range was not used to interpret this result as normal/abnormal. GRAN MAT (NEUT) % (test code = 770-8) 80.1 % IMM GRAN % (test code = 1704755826) 0.50 % LYMPH % (test code = 736-9) 12.5 % MONO % (test code = 5905-5) 6.5 % EOS % (test code = 713-8) 0.1 % BASO % (test code = 706-2) 0.3 % GRAN MAT x10^3(ANC) (test code = 3687141090) 12.09 10*3/uL 1.99-6.95 H IMM GRAN x10^3 (test code = 2971669591) 0.08 10*3/uL 0-0.06 H LYMPH x10^3 (test code = 731-0) 1.89 10*3/uL 1.09-3.23 MONO x10^3 (test code = 742-7) 0.98 10*3/uL 0.36-1.02 EOS x10^3 (test code = 711-2) <0.03 0.06-0.53 L BASO x10^3 (test code = 704-7) 0.04 10*3/uL 0.01-0.09 Lab Interpretation (test code = 20035-1) Abnormal [facility]HEPAT[facility] PAN[facility] (07989) (ALB,T.PRO,BILI T,BU/BC,ALT,AST,ALK PHOS)2020-08-28 21:15:00* Test Item Value Reference Range Interpretation Comme nts TOTAL BILI (test code = 0775408071) 0.6 mg/dL 0.1-1.1 BILI UNCON (test code = 1310930000) 0.4 mg/dL 0.1-1.1 BILI CONJ (test code = 6795254481) 0.0 mg/dL 0-0.3 T PROTEIN (test code = 7062059445) 7.2 g/dL 6.3-8.2 ALBUMIN (test code = 1986485994) 3.9 g/dL 3.5-5 ALK PHOS (test code = 4729783180) 65 U/L 34-122 ALTv (test code = 1742-6) 20 U/L 5-50 AST(SGOT) (test code = 7256828457) 25 U/L 13-40 Lab Interpretation (test cod e = 58333-8) Normal [facility] [id number] 18:22:30 Hepatomegaly with moderate hepatic steatosis. Cholelithiasis [...] related to stone. [facility] RegionalXR CHEST 1 [id number] 14:32:06No acute cardiopulmonary abnormality. Preliminary Report Dictated [...] have reviewed this study andagree with theabove report.[facility] (NA, K, CL, CO2, GLUCOSE, BUN, CREATININE, CA) 2020-08-28 11:39:00* Test Item Value Reference Range Interpretation Comme nts NA (test code = 7780605366) 137 mmol/L 135-145 K (test code = 9193215700) 3.9 mmol/L 3.5-5 CL (test code = 6665590780) 104 mmol/L 98-108 CO2 TOTAL (test code = 4642593149) 28 mmol/L 23-31 AGAP (test code = 6775599736) 2-16 BUN (test code = 5977994013) 15 mg/dL 7-23 GLUCOSE (test code = 3078770762) 96 mg/dL 70-110 CREATININE (test code = 6181459922) 0.68 mg/dL 0.6-1.25 CALCIUM (test code = 0434864281) 9.2 mg/dL 8.6-10.6 eGFR Calculation (Non-) (test code = 0979543980) mL/min/1.73m2 eGFR Calculation () (test code = 6689981957) mL/min/1.73m2 LAURIE (test code = LAURIE) Association [...] in imaging tests). [facility] PELVIS W WO [id number] 19:39:221. ?Diffuse bladder wall thickening is likely [...] reviewed this study and agree with theabove report.[facility] GLUCOSE (AUTOMATED) 2020-08-27 19:34:00* Test Item Value Reference Range Interpretation Comme nts POCT GLU (test code = 5800475746) 95 mg/dL 70-110 Lab Interpretation (test cod e = 37365-3) Normal [facility] RegionalTROPONIN [id number] 19:12:00* Test Item Value Reference Range Interpretation Comme nts TROPONIN I (test code = 2397847985) <0.012 See_Comment [Automated message] The system which [...] biotin. ? Lab Interpretation (test code = 00351-8) Normal [facility] GLUCOSE (AUTOMATED)2020-08-27 14:42:00* Test Item Value Reference Range Interpretation Comme nts POCT GLU (test code = 4246825066) 99 mg/dL 70-110 Lab Interpretation (test cod e = 46014-1) [facility] [id number] 13:09:00* Test Item Value Reference Range Interpretation Comme nts TROPONIN I (test code = 0558841744) <0.012 See_Comment [Automated message] The system which [...] biotin. ? Lab Interpretation (test code = 02220-4) [facility] (32568)(TOTAL CHOLESTEROL, TRIGLYCERIDES, HDL)2020-08-27 08:31:00* Test Item Value Reference Range Interpretation Comme nts CHOL (test code = 7219273086) 208 mg/dL 120-200 H HDL (test code = 4380258879) 28 mg/dL >40 L HDLC RATIO (test code = 1913464081) See_Comment H [Automated [employer]] The system which generated this result transmitted reference range: <=5.0. The reference range was not used to interpret this result as normal/abnormal. TRIG (test code = 2112849551) 351 mg/dL 30-170 H LDL CHOL (test code = 52584-7) 110 mg/dL See_Comment [Automated messa ge] The system which generated this result transmitted reference range: <=160. The reference range was not used to interpret this result as normal/abnormal. VLDL (test code = 8224876263) 70 mg/dL 5-60 H Lab Interpretation (test code = 07176-1) [facility] [id number] 08:00:00 * Test Item Value Reference Range Interpretation Comme nts TSH (test code = 5529000625) See_Comment L Biotin has been reported to cause a negative bias, interpret results relative to patient's use of biotin. [Automated message] The system which generated this result transmitted reference range: 0.45 - 4.70 mIU/L. The reference range was not used to interpret this result as normal/abnormal. Lab Interpretation (test code = 32233-7) [facility]normal [facility] (ID NOW RAPID TESTING)2020-08-27 07:03:00* Test Item Value Reference Range Interpretation Comme nts SARS-CoV-2 Rapid ID NOW (test code = 34504-0) Not Detected Not Detected LAURIE (test code = LAURIE) ID NOW COVID-19 As say is an isothermal nucleic acid amplification test intended for the qualitative detection of nucleic acid from SARS-CoV-2 viral RNA in nasopharyngeal (WELDING MACHINE FEEDER) specimens. It is used under Emergency Use [...] clinically indicated. Lab Interpretation (test code = 06026-5) Normal [facility] - DRUG SCREEN CUUSUO4131-65-61 06:58:00* Test Item Value Reference Range Interpretation Comme nts BENZO U (test code = 7961580276) Negative Negative HORACIO U (test code = 9677403334) Negative Negative AMPHET (test code = 9695151829) Negative Negative THC (test code = 1687975668) Negative Negative METHADONE (test code = 3141213760) Negative Negative Meth U (test code = 0920149503) Negative Negative OPIATES (test code = 2768038413) Negative Negative Cocaine Metabolite (test code = 1825839548) Negative Negative PROPOXY (test code = 8485500321) Negative Negative Tric U (test code = 2833517077) Negative Negative PCP (test code = 5709826400) Negative Negative OXYCOD (test code = 5612205705) Negative Negative LAURIE (test code = LAURIE) [...] legal testing). Lab Interpretation (test code = 62786-7) Normal [facility] RegionalUrinalysis2020-11-08 06:51:00* Test Item Value Reference Range Interpretation Comme nts APPEARANCE (test code = 5040668769) Clear Clear COLOR (test code = 7401356823) Yellow Yellow PH (test code = 1265538608) 4.8-8.0 SP GRAVITY (test code = 5446996950) 1.003-1.030 GLU U QUAL (test code = 7885687785) Normal Normal BLOOD (test code = 8607182756) Negative Negative KETONES (test code = 6862489196) 20 mg/dL Negative A PROTEIN (test code = 2887-8) Negative Negative UROBILIN (test code = 4922672760) Normal Normal BILIRUBIN (test code = 6542126196) Negative Negative NITRITE (test code = 6874985911) Negative Negative LEUK KENNY (test code = 5016286072) Negative Negative RBC/HPF (test code = 2485955320) See_Comment [Automated [employer]] The system which generated this result transmitted reference range: 0 - 3 HPF. The reference range was not used to interpret this result as normal/abnormal. WBC/HPF (test code = 4005236580) See_Comment [Automated [employer]] The system which generated this result transmitted reference range: 0 - 5 HPF. The reference range was not used to interpret this result as normal/abnormal. BACTERIA (test code = 4563435162) Negative Negative MUCOUS (test code = 7794828508) Slight Negative LPF A Lab Interpretation (test code = 57285-0) Abnormal [facility] F5552-08-95 06:45:00* Test Item Value Reference Range Interpretation Comme nts TROPONIN I (test code = 3183659819) <0.012 See_Comment [Automated message] The system which [...] biotin. ? Lab Interpretation (test code = 03646-2) Normal [facility] RegionalETHANOL2020-11-08 06:34:00* Test Item Value Reference Range Interpretation Comme nts ALCOHOL (test code = 7658096843) 14 mg/dL LAURIE (test code = LAURIE) <10 Asurtjxz69-597 Toxic>100 Depression of PASTE MIXER>400 Fatalities Reported [facility] Met[facility] (NA, K, CL, CO2, GLUCOSE, BUN, CREATININE, CA)2020-08-27 06:33:00* Test Item Value Reference Range Interpretation Comme nts NA (test code = 5458711932) 137 mmol/L 135-145 K (test code = 3429894576) 3.6 mmol/L 3.5-5 CL (test code = 8920879364) 102 mmol/L 98-108 CO2 TOTAL (test code = 9061514639) 26 mmol/L 23-31 AGAP (test code = 7604417747) 2-16 BUN (test code = 9353412792) 13 mg/dL 7-23 GLUCOSE (test code = 9547727580) 119 mg/dL 70-110 H CREATININE (test code = 1055525219) 0.86 mg/dL 0.6-1.25 CALCIUM (test code = 3015022946) 9.8 mg/dL 8.6-10.6 eGFR Calculation (Non-) (test code = 6518572981) mL/min/1.73m2 eGFR Calculation () (test code = 6411356638) mL/min/1.73m2 LAURIE (test code = LAURIE) Association [...] imaging tests). Lab Interpretation (test code = 66100-3) Abnormal [facility] RegionalHepatic Function Panel (ALB, T.PRO, BILI T, BU/BC, ALT, AST, ALK PHOS)2020-08-27 06:33:00* Test Item Value Reference Range Interpretation Comme nts TOTAL BILI (test code = 0149292854) 0.3 mg/dL 0.1-1.1 BILI UNCON (test code = 3777055006) 0.2 mg/dL 0.1-1.1 BILI CONJ (test code = 1008128172) 0.0 mg/dL 0-0.3 T PROTEIN (test code = 3044052249) 7.8 g/dL 6.3-8.2 ALBUMIN (test code = 3414509817) 4.5 g/dL 3.5-5 ALK PHOS (test code = 3315509166) 71 U/L 34-122 ALTv (test code = 1742-6) 26 U/L 5-50 AST(SGOT) (test code = 8651847455) 26 U/L 13-40 Lab Interpretation (test cod e = 50211-0) Normal [facility] RegionalLipase Unwlj3346-48-80 06:33:00* Test Item Value Reference Range Interpretation Comme nts LIPASE (test code = 0925331778) 77 U/L 0-220 Lab Interpretation (test cod e = 52265-9) Normal [facility] RegionalaPTT2020-11-08 06:19:00* Test Item Value Reference Range Interpretation Comme nts APTT Patient (test code = 3173-2) See_Comment [Automated message] The system which generated this result transmitted reference range: 23 - 38 Seconds. The reference range was not used to interpret this result as normal/abnormal. LAURIE (test code = LAURIE) The [facility] patient population mean normal value for aPTT is 30 seconds. Lab Interpretation (test code = 64871-4) Normal [facility] RegionalProthrombin Time (PT) / JJY0399-64-84 06:17:00 * Test Item Value Reference Range Interpretation Comme [facility] PROTIME PATIENT (test code = 5964-2) See_Comment [Automated [employer] ge] The system which generated this result transmitted reference range: 12.0 - 14.7 Seconds. The reference range was not used to interpret this result as normal/abnormal. INR (test code = 6301-6) Normal INR <1.1; Warfarin Therapeutic range 2.0 to 3.0 or 2.5 to 3.5, depending upon the indications. Lab Interpretation (test code = 59489-3) Normal [facility] RegionalCBC with Fyingwgsqrmw4372-71-30 06:07:00* Test Item Value Reference Range Interpretation Comme [facility] WBC (test code = 6690-2) See_Comment [Automated messa ge] The system which generated this result transmitted reference range: 4.20 - 10.70 10*3/?L. The reference range was not used to interpret this result as normal/abnormal. RBC (test code = 789-8) See_Comment [Automated [employer] ge] The system which generated this result [...] 32.8 g/dL 31.2-35 RDW-SD (test code = 16551-9) 42.9 fL 38.5-51.6 RDW-CV (test code = 788-0) 12.7 % 12.1-15.4 PLT (test code = 777-3) See_Comment [Automated messa ge] The system which generated this result transmitted reference range: 150 - 328 10*3/?L. The reference range was not used to interpret this result as normal/abnormal. MPV (test code = 42692-3) 9.1 fL 9.8-13 L NRBC/100 WBC (test code = 4278486911) See_Comment [Automated [employer] ssage] The system which generated this result transmitted reference range: 0.0 - 10.0 /100 WBCs. The reference range was not used to interpret this result as normal/abnormal. NRBC x10^3 (test code = 7920014094) <0.01 See_Comment [Automated messa ge] The system which generated this result transmitted reference range: 10*3/?L. The reference range was not used to interpret this result as normal/abnormal. GRAN MAT (NEUT) % (test code = 770-8) 52.4 % IMM GRAN % (test code = 4686870485) 0.50 % LYMPH % (test code = 736-9) 37.8 % MONO % (test code = 5905-5) 6.2 % EOS % (test code = 713-8) 2.3 % BASO % (test code = 706-2) 0.8 % GRAN MAT x10^3(ANC) (test code = 2958358532) 4.33 10*3/uL 1.99-6.95 IMM GRAN x10^3 (test code = 2124820796) 0.04 10*3/uL 0-0.06 LYMPH x10^3 (test code = 731-0) 3.13 10*3/uL 1.09-3.23 MONO x10^3 (test code = 742-7) 0.51 10*3/uL 0.36-1.02 EOS x10^3 (test code = 711-2) 0.19 10*3/uL 0.06-0.53 BASO x10^3 (test code = 704-7) 0.07 10*3/uL 0.01-0.09 Lab Interpretation (test code = 69604-4) Abnormal [facility] RegionalTROPONIN Z4953-74-94 04:41:00* Test Item Value Reference Range Interpretation Comme nts TROPONIN I (test code = 2183174415) 0.000 ng/mL See_Comment [Automated message] The system [...] biotin. ? Lab Interpretation (test code = 94050-5) Normal [facility]AD / [facility] - DRUG SCREEN CRKGRS3224-73-22 03:46:00* Test Item Value Reference Range Interpretation Comme nts BENZO U (test code = 7428126232) Negative Negative HORACIO U (test code = 1821212764) Negative Negative AMPHET (test code = 0175747568) Negative Negative THC (test code = 5377393375) Negative Negative METHADONE (test code = 5017615672) Negative Negative Meth U (test code = 4574071803) Negative Negative OPIATES (test code = 4506609598) Presumptive Positive Negative A Cocaine Metabolite (test code = 5952021295) Negative Negative PROPOXY (test code = 8085765405) Negative Negative Tric U (test code = 1377694486) Negative Negative PCP (test code = 0618587090) Negative Negative OXYCOD (test code = 3641080078) Negative Negative LAURIE (test code = LAURIE) [...] legal testing). Lab Interpretation (test code = 49775-4) Abnormal [facility] RegionalD-IKVSU5314-53-62 03:29:00* Test Item Value Reference Range Interpretation Comments D-DIMER (test code = 8969631322) <0.27 See_Comment [Automated message] The system which [...] a diagnosis. Lab Interpretation (test code = 46245-0) Normal [facility] RegionalLIPASE2020-09-21 02:07:00* Test Item Value Reference Range Interpretation Comme nts LIPASE (test code = 0707816448) 58 U/L 0-220 Lab Interpretation (test cod e = 26605-2) Normal [facility] RegionalXR CHEST 1 [id number] 01:44:02No acute cardiopulmonary abnormality. Preliminary Report Dictated [...] acute cardiopulmonary abnormality.Preliminary Report Dictated by Resident: Barry Grover MD., have reviewed this study and agree with theabove report.[facility] TROPONIN C0684-96-36 01:40:00* Test Item Value Reference Range Interpretation Comme nts TROPONIN I (test code = 3324452896) 0.000 ng/mL See_Comment [Automated message] The system [...] biotin. ? Lab Interpretation (test code = 53606-3) Normal [facility] RegionalPROTHROMBIN TIME / ZGU3188-29-25 01:39:00* Test Item Value Reference Range Interpretation Comme [facility] PROTIME PATIENT (test code = 5964-2) See_Comment [Automated [employer] ge] The system which generated this result transmitted reference range: 12.0 - 14.7 Seconds. The reference range was not used to interpret this result as normal/abnormal. INR (test code = 6301-6) Normal INR <1.1; Warfarin Therapeutic range 2.0 to 3.0 or 2.5 to 3.5, depending upon the indications. 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 It is used under Emergency Use [...] clinically indicated. Lab Interpretation (test code = 45292-7) Normal [facility] RegionalCOM. METABOLIC PANEL (17959)2020-07-10 01:29:00* Test Item Value Reference Range Interpretation Comme nts NA (test code = 5386813802) 136 mmol/L 135-145 K (test code = 3092176786) 3.4 mmol/L 3.5-5 L CL (test code = 0443602125) 98 mmol/L 98-108 CO2 TOTAL (test code = 0357620446) 26 mmol/L 23-31 AGAP (test code = 2133174353) 2-16 BUN (test code = 3545517871) 16 mg/dL 7-23 GLUCOSE (test code = 7873588448) 165 mg/dL 70-110 H CREATININE (test code = 5381143769) 0.94 mg/dL 0.6-1.25 TOTAL BILI (test code = 3383540592) 0.4 mg/dL 0.1-1.1 CALCIUM (test code = 6010394106) 9.7 mg/dL 8.6-10.6 T PROTEIN (test code = 6674399620) 8.2 g/dL 6.3-8.2 ALBUMIN (test code = 3872484046) 4.4 g/dL 3.5-5 ALK PHOS (test code = 4158084031) 77 U/L 34-122 ALTv (test code = 1742-6) 31 U/L 5-50 AST(SGOT) (test code = 9979605854) 26 U/L 13-40 eGFR Calculation (Non-) (test code = 9288481433) mL/min/1.73m2 eGFR Calculation () (test code = 4576157695) mL/min/1.73m2 LAURIE (test code = LAURIE) Association [...] imaging tests). Lab Interpretation (test code = 69764-0) Abnormal [facility] WITH [id number] 01:11:00* Test Item Value Reference Range Interpretation Comme nts WBC (test code = 6690-2) See_Comment [[employer]] The system which generated this result transmitted reference range: 4.20 - 10.70 10*3/?L. The reference range was not used to interpret this result as normal/abnormal. RBC (test code = 789-8) See_Comment [[employer]] The system which generated this result transmitted [...] 34.0 g/dL 31.2-35 RDW-SD (test code = 95422-6) 42.6 fL 38.5-51.6 RDW-CV (test code = 788-0) 13.0 % 12.1-15.4 PLT (test code = 777-3) See_Comment [Automated [employer] ge] The system which generated this result transmitted reference range: 150 - 328 10*3/?L. The reference range was not used to interpret this result as normal/abnormal. MPV (test code = 20984-3) 9.5 fL 9.8-13 L NRBC/100 WBC (test code = 2605294314) See_Comment [Automated [employer] ssage] The system which generated this result transmitted reference range: 0.0 - 10.0 /100 WBCs. The reference range was not used to interpret this result as normal/abnormal. NRBC x10^3 (test code = 0279668507) <0.01 See_Comment [Automated [employer] ge] The system which generated this result transmitted reference range: 10*3/?L. The reference range was not used to interpret this result as normal/abnormal. GRAN MAT (NEUT) % (test code = 770-8) 65.5 % IMM GRAN % (test code = 6361322943) 0.70 % LYMPH % (test code = 736-9) 26.1 % MONO % (test code = 5905-5) 5.7 % EOS % (test code = 713-8) 1.2 % BASO % (test code = 706-2) 0.8 % GRAN MAT x10^3(ANC) (test code = 9543644625) 6.62 10*3/uL 1.99-6.95 IMM GRAN x10^3 (test code = 1509466918) 0.07 10*3/uL 0-0.06 H LYMPH x10^3 (test code = 731-0) 2.64 10*3/uL 1.09-3.23 MONO x10^3 (test code = 742-7) 0.58 10*3/uL 0.36-1.02 EOS x10^3 (test code = 711-2) 0.12 10*3/uL 0.06-0.53 BASO x10^3 (test code = 704-7) 0.08 10*3/uL 0.01-0.09 Lab Interpretation (test code = 17493-7) Abnormal [facility] Notes Date/Time Note Provider Source 2023-11-06 02:36:40 ZqjRAsVqiTlDCmlffYceqapFz0FI5Y825zNsN wa/MF4jYUXle9jId8owYCcfHKeD1195-40-63 T02:36:40 Pt given printed and verbal discharge [...] with steady gait, in no apparent distress 81124-4Gjhinmgxm department McdyYA9345-95-59W55:37:39Emergency department NoteTXT1.2.840.988354.1.13.104.2.7.2. 355303|[id number] for patient mzox12842-3YjjiRNNTAHEUIFMJotudewvh C-CDA narrative ckgz337403032Zrmgnvc A Diaz RNUT[id number] JGUIDZULELUGNFNFPGNDM4997-68-61Q22:37 :391.2.840.222269.1.72.3.15|1.2.840.1 73972.1.13.104.2.7.2.727879_[id number] 8 Vira Huang RN [facility] 2023-11-05 23:47:32 BeS7YOzTgdLCTVjT654u3mLu5Ode0WNaJkzve NGBgxWq7IjRW5HhAOGRxmGINxfA7282-59-93 T23:47:32 Patient ambulatory to ED c/o abd pain that started yesterday. Patient went to PCP today and patient states no prescriptions were given. 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 Last medication taken was Tylenol tonight.Patient is tearful in triage. 86817-5Jkmiapxuq department Triage flxkOK0293-87-14D06:52:16[facility] Triage noteTXT1.2.840.113036.1.13.104.2.7.2. 396644|[id number] for patient rccp05575-9Hbeafcxfa department NoteLNNARRATIVEFormatted C-CDA narrative [id number]-Qymgu McInnis RN[address]YceeAtktnqaydFsfzyaynnFYUG9865153286B HYRZZPPEPVEBVJEGRXQWW3082-07-28C34:52 :161.2.840.587701.1.72.3.15|1.2.840.1 26076.1.13.104.2.7.2.727879_[id number] 3 Sarina Graham RN [facility] 2023-11-01 04:18:58 tJxrFFxzVk70dW+sIbVnepgb38ZlzpIWxkqfc gCxI3AYUB3/xh1Y3cLrN8fUDaqX3321-38-06 T04:18:58 Pt given printed and verbal discharge [...] with steady gait, in no apparent distress 15007-9Dgsdlcajd department YaexZP2057-73-76I41:19:28[facility] NoteTXT1.2.840.507061.1.13.104.2.7.2. 505365|[id number] for patient gxen03452-2RrefQSRSZSGIDEVIvntoeyes C-CDA narrative text[id number] KPRNXPJKNBIOAZDIYKOWI0028-78-34R73:19 :281.2.840.198416.1.72.3.15|1.2.840.1 76938.1.13.104.2.7.2.727879_[id number] 6 [facility] 2023-10-31 23:33:52 xMggO+gs8qf2MCLkoZ2Fi6ZZ1O5p+xt6uMbh6 GwQ/bDQyRcDaA6GxGSdFS9EgyIy7209-34-36 T23:33:52 Pt arrived c/o RLQ/epigastric abdominal pain, vomiting, and headache. Pain began yesterday.PMH: Gallbladder removed 2/3 years ago 65029-6Mauchvzsa department Triage xnmwUA6576-69-91F76:37:25[facility] Triage noteTXT1.2.840.674192.1.13.104.2.7.2. 417211|[id number] for patient veau00024-0Dwesprozq department NoteLNNARRATIVEFormatted C-CDA narrative [id number] ZCLUIHKPXXUBWPIJQSPDS3789-55-93A52:37 :251.2.840.218312.1.72.3.15|1.2.840.1 26608.1.13.104.2.7.2.727879_[id number] 8 [facility] 2023-10-31 23:28:00 zdiCXOto4PrTeBvPTBgPXxlprx8oQvjHDY3Rg /1nOoTiSAvEIMnc8BnG5sYgqZ8y9239-74-53 T23:28:00 [facility] Emergency Department NotePatient Name: Marysol Lazo of : 1975 48 year old maleTreatment Room: RUST/[address] Record Number: [id number] Care Physician: PATIENT DOES NOT HAVE A PCPPatient Escorted by: Family [5]Mode of Arrival: Personal means [1]EMS Treatment Prior to ED Arrival:CAUSTICS LOADER treatment: NoneTravel and Exposure Screening:SymptomsDoes patient have [...] CHOLECYSTECTOMY N/A 08/29/2020Surgeon: Vaishali Vicente MD; [facility]Testicular surgeryTONGUE TO LIP SURGERYTONSILLECTOMYReview of Systems:Review of [...] No obvious mass, no hernia sac, testicles-nl. [place], nontenderMusculoskeletal:General: Normal range of motion.Skin:General: Skin is [...] identified in the abdomen or pelvis.RL: 460AF: 43610Zvlmtpccpbnzle signed by Chantal Lee MD, PhD at 11/01/2023 3:00 AMLab Results:Lab ResultsCOMP. METABOLIC PANEL (56328) - AbnormalResult Value Ref RangeNA 138 135 [...] U/LAST(SGOT) 33 13 - 40 U/LeGFR 118.8 mL/min/1.69a4ZKG WITH DIFF - AbnormalWBC 11.54 (*) 4.20 [...] needed for Cough for up to 20 doses.MDJOJLXTHG-AMQMBOBJNLDEY-YMIK 50-325-40 MG TABLET Take 1 tablet by [...] fileFollow-up:Electronically signed by:Jose Francisco Walters MD11/01/23 0332 27458-5Nvcxcwxih Emergency department JjbuJH8329-33-62W15:32:28Physician Emergency department NoteTXT1.2.840.640741.1.13.104.2.7.2. 088669|[id number] for patient krkk60041-0Zgdxzhsax department NoteLNNARRATIVEFormatted C-CDA narrative text59 [address] StreetKhyzVnwpfy[id number] CXQATPOYQWTUFOZRBFOHM7652-09-94A10:32 :281.2.840.770636.1.72.3.15|1.2.840.1 44682.1.13.104.2.7.2.727879_[id number] 1 [facility] 2023-10-23 02:26:31 MmPmnK9L89W00bPYg+fXfMi7a48QdnQu7Muk8 2aYmuBPFP5YIX2rHvR4WE3rmrAJ3479-15-92 T02:26:31 Pt given printed and verbal discharge [...] with steady gait, in no apparent distress. 92113-1Ytnujtigz department TqsiTW4851-05-27S78:31:16Emer[facility] NoteTXT1.2.840.283003.1.13.104.2.7.2. 899684|[id number] for patient epll64937-7BvpxRZQUPNZDOTYNxgdzbbwv C-CDA narrative dyzz633843200Tjtgqd D Roman RN[address] StreetWidyOeycfvwsrLpmddmzceFIPR1702909390S UXQVQSODKBPJRARRZXKDY6439-59-94C31:31 :161.2.840.695344.1.72.3.15|1.2.840.1 96868.1.13.104.2.7.2.727879_[id number] 9 More Zamudio RN [facility] 2023-10-22 23:44:24 nzd8i6muJzDrYMzIHgEEql3CYbpYJMee2QUAN MWdcX8U1R6DROAsPkYzqgOysyTu4457-41-13 T23:44:24 CC: Pt reports RLQ abd pain and 2 episodes of vomiting since morning. Pt has BM this morning was normal.PMHx: HTN, KH9Bymqq, alert, oriented, resp reg unlabored, skin warm, color appropriate for race, moves all ext without difficulty, amb with steady gait 85102-0Thrtcvcgx department Triage xpkrIJ0190-06-73X27:45:27[facility] department Triage noteTXT1.2.840.503002.1.13.104.2.7.2. 057678|[id number] for patient cjzh70673-4Yadcljilu department NoteLNNARRATIVEFormatted C-CDA narrative text[address] GcmkYuoo[id number] DMJVEJEBKNPOHQJXUIXAM2656-92-25U40:45 :271.2.840.542265.1.72.3.15|1.2.840.1 57115.1.13.104.2.7.2.727879_[id number] 5 [facility] 2023-10-22 23:33:00 9jyD8a5PsZcL9zoFzyQvpKOWPc9sosedXAHib hz6aVWmNwebgiMCUTxkOUmkVVm72258-62-24 T23:33:00 [facility] Emergency Department NotePatient Name: Marysol Lazo of : 1975 48 year old maleTreatment Room: [place] [address]BN[place]affie Record Number: [id number] Care Physician: PATIENT DOES NOT HAVE A PCPPatient Escorted by: Family [5]Mode of Arrival: Personal means [1]EMS Treatment Prior to ED Arrival:CAUSTICS LOADER treatment: Medication (comment)CAUSTICS LOADER treatment comments: 2 tylenol 2 hrs agoTravel [...] 3History provided by: Medical records and patientLanguage medical officer psychiatry used: NoAbdominal PainPain location: RLQPain quality: sharpPain [...] CHOLECYSTECTOMY N/A 08/29/2020Surgeon: Vaishali Vicente MD; [facility]Testicular surgeryTONGUE TO LIP SURGERYTONSILLECTOMYReview of Systems:Review of [...] in the abdomen or pelvis.Normal appendix.RL: 460AF: 17311Qvhvkyqwecwlvc signed by Chantal Lee MD, PhD at 10/23/2023 1:44 AMLab Results:Lab ResultsCOMP. METABOLIC PANEL (38353) - AbnormalResult Value Ref RangeNA 140 135 [...] U/LAST(SGOT) 33 13 - 40 U/LeGFR 107.0 mL/min/1.94v8AXC WITH DIFF - AbnormalWBC 11.85 (*) 4.20 [...] mg tabletFirst Provider Eval:ED EventsDate/Time Event User Mhxhwobl00/04/24 5980 Medical Screening Begins CHAPITO CONTRERAS MD --10/23/234 First Provider Evaluation CHAPITO CONTRERAS MD --ED [...] needed for Cough for up to 20 doses.UKRTZIHTKQ-ZKRPPDOLFAFRR-NNNF 50-325-40 MG TABLET Take 1 tablet by [...] on fileFollow-up:Contact information for follow-upOmaira Chen MDSpecialty: IM-DAJBHVUNPAQGMNVF[address] [place] [id number]: [phone] signed by:Chapito Contreras MD10/23/23219 93918-6Radrgdirv Emergency department GkyiHR4138-15-46L06:20:23Physician Emergency department NoteTXT1.2.840.197558.1.13.104.2.7.2. 386625|[id number] for patient xson98041-8Ilkmqpaoh department NoteLNNARRATIVEFormatted C-CDA narrative textUT41 Brooks StreetMs[id number] PRPOEAYFAFFDBKAVITFPQ0823-30-15B70:20 :231.2.840.060727.1.72.3.15|1.2.840.1 58643.1.13.104.2.7.2.727879_[id number] 7 [facility] 2023-07-07 05:55:19 04pm+dWNh/5UK//X2qEwZ4HnQ7o+F3IjAtrQY m85gQc7i6ZyPGVVe8GSk4AfyU7M2382-46-70 T05:55:19 Awake, alert oriented X4, respiratory even [...] ER noted upon dischargePt [facility] 67529-9Twmunoact department ZcmvCU8598-80-47S24:56:11[facility] NoteTXT1.2.840.743381.1.13.104.2.7.2. 875593|[id number] for patient dwgv91697-9JebpIITJMJBYBR[address] Ld[id number] UYVOGRQKROTGKNXYEYDUW6127-77-54O05:56 :111.2.840.088609.1.72.3.15|1.2.840.1 44745.1.13.104.2.7.2.727879_[id number] 5 [facility] 2023-07-07 03:54:59 gKwybTR7VmsV/Zcm9/1+WB3xppM37UtoYm14n VaqCOByOCYJIwR/BTAXYQ8I3+F/2023-07-07 T03:54:59 Pt states that he last night his blood pressure was running high and he has headache. 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 Pt state that he took his enalapril around 2300 last night. 88788-6Hbmblqjwe department Triage ryudXV5797-59-34D38:57:11Emergency department Triage [id number]. [id number] for patient wdtg80339-1Pnnkulpbg department NoteLNUT[address] Vx[id number] DSNPCSNLQCLZQMESFLHRF7291-39-97Z63:57 :111.2.840.986982.1.72.3.15|1.2.840.1 [id number] 6 [facility] 2023-07-07 03:49:00 ImDn82koOxCeT2FoUVS32xqWzsJvc3edNCmoF uLtY/k+sPcwJkmDrgD4QqM00N0t7605-82-81 T03:49:00 [facility] Emergency Department NotePatient Name: Marysol Lazo of : 1975 47 year old maleTreatment Room: [address] Record Number: [id number] Care Physician: PATIENT DOES NOT HAVE A PCPPatient Escorted by: Self [9]Mode of Arrival: Personal means [1]EMS Treatment Prior to ED Arrival:CAUSTICS LOADER treatment: None Travel and Exposure Screening:SymptomsDoes patient [...] traumaHistory provided by: Patient and medical recordsLanguage medical officer psychiatry used: No HypertensionSeverity: ModerateOnset quality: SuddenDuration: 2 hoursTiming: SporadicChronicity: ChronicTime since last dose of antihypertensive: 2 hoursNotable CAUSTICS LOADER blood pressures: 198/112Context: normal sodium, not caffeine, [...] N/A 08/29/2020 Surgeon: Vaishali Vicente MD; Location: [facility] OR Location OTHER Testicular surgery TONGUE TO [...] display Lab Results:Lab Results COMP. METABOLIC PANEL (47222) - Abnormal Result Value Ref Range NA [...] Encounter Procedures TROPONIN I COMP. METABOLIC PANEL (83052) LIPASE, SERUM CBC WITH DIFF URINALYSIS Orders Placed This Encounter Medications ketorolac (TORADOL) injection 30 mg metoclopramide HCl (REGLAN) injection 10 mg pytjssnxlr-jcfavraebwpie-kvsq 50-325-40 mg tablet First Provider Eval:ED Events [...] Discharge Medications:Patient's Medications START taking these medications YVBULWXJLK-MSNCAJBYHFGSB-ZLTS 50-325-40 MG TABLET Take 1 tablet by [...] for follow-up Ulises Carter MD Specialty: PN-NEUROLOGY [facility] AND [address] [address] Electronically signed by: Chapito Contreras MD07/07/23 0553 88255-6Awdmaqkhc Emergency department FbfeFH7045-47-17P87:53:28Physician Emergency department [id number]. [id number] for patient sbga59446-8Bmzatavew department NoteLNUT[address]Vql[id number] MNIJFUEUKMXLLJCLQXPFO7011-78-99V64:53 :281.2.840.812964.1.72.3.15|1.2.840.1 [id number] 1 [facility] 2023-05-25 22:36:27 jZArnWSyB+m3gX1aBwrluiESYPxsFLyyDpyUS s2CYDmxBlnhh6+zlt6B7PomNyjS3370-87-02 T22:36:27 Pt given printed and verbal discharge [...] with steady gait, in no apparent distress 41406-4Wgontwvzl department IkenYH0391-33-80P71:37:47[facility] NoteTXT1.2.840.116748.1.13.104.2.7.2. 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 50452-2Ajkajyolo department Triage ndmuNY2569-38-38V67:20:33[facility] Triage noteTXT1.2.840.862940.1.13.104.2.7.2. 871710|[id number] for patient kslg24065-5Ofhvwghnl department [id number] L Barker RN[id number] UWBQWZVJJOCYHLKNHFDWZ1670-31-02R19:20 :331.2.840.027037.1.72.3.15|1.2.840.1 [id number] 0 Shalini Nair RN [facility]
[2023-11-17 03:34] LABS: Absolute Lymphocytes (CBC) 2.6 K/uL (0.7-4.9); Hematocrit 48.4 % (39.6-49.0); Lymphocytes % 26.8 % (15.3-44.8); MCV 90.4 fL (80-100); MPV 8.1 fL (7.6-11.3); Platelets 340 thou/uL (152-406); RBC Red Blood Cell Count 5.35 M/uL (4.33-5.43)
[2023-11-17 03:44] LABS: Albumin 3.7 g/dL (3.4-5.0); Bilirubin Total 0.3 mg/dL (0.2-1.0); Potassium 3.7 mEq/L (3.5-5.1)
--- NOTE | 2023-11-17 06:50 | EDPHYS ---
Physician Documentation [facility] Name: Carrington Dumont Age: 48 yrs Sex: Male : 1975 Arrival Date: 11/17/2023 Time: 02:17 Bed 7 Private MD: ED Physician Robb Cox HPI: 11/17 04:15 This 48 yrs old Male presents to ER via Ambulatory with complaints of rn Abdominal Pain, Headache. 04:15 The patient presents with abdominal pain in the upper abdomen. Onset: The rn symptoms/episode began/occurred 1 week(s) ago. The symptoms do not radiate. Associated signs and symptoms: Pertinent positives: nausea, vomiting. Associated signs and symptoms: Pertinent negatives: blood in stools, chest pain, shortness of breath, testicular pain. The symptoms are described as achy, crampy. Modifying factors: The symptoms are alleviated by nothing, the symptoms are aggravated by touching the area. Severity of pain: At its worst the pain was moderate in the emergency department the pain is unchanged. The patient has experienced similar episodes in the past. Patient reports just admitted to the hospital and discharged yesterday for same problem. Pain returned so came in for evaluation as that is what discharge instructions had to do. Reports upper abdominal pain for several days with nausea and vomiting. States no acute findings and workup in the hospital, appendix was normal and told Mounjaro is possibly the cause of his pain. Patient reports pain worsens with touching area and after eating. No fever. No blood in stool. Historical: - Allergies: 02:42 PENICILLINS; vc1 - Home Meds: 02:42 enalapril maleate 10 mg Oral tab 1 tab once daily [Active]; levothyroxine 125 mcg tab 1 vc1 tab once daily [Active]; Pepcid Oral [Active]; - PMHx: 02:42 Hypertension; Hypothyroidism; vc1 - PSHx: 02:42 Cholecystectomy; vc1 - Immunization history:: Client reports having NOT received the Covid vaccine. Flu vaccine is not up to date. - Social history:: Smoking status: Patient reports the use of cigarette tobacco products, 5 cig/day. - Family history:: not pertinent. - Hospitalizations: : The patient was recently seen at [facility]. ROS: 04:15 Constitutional: Negative for fever, chills, and weight loss, Cardiovascular: Negative rn for chest pain, palpitations, and edema, Respiratory: Negative for shortness of breath, cough, wheezing, and pleuritic chest pain, Abdomen/GI: Positive for abdominal pain and vomiting Back: Negative for injury and pain, : Negative for injury, bleeding, discharge, and swelling, MS/Extremity: Negative for injury and deformity, Neuro: Positive for headache Exam: 04:15 Constitutional: This is a well developed, well nourished patient who is awake, alert, rn appears uncomfortable, in tears but also on Facebook on his phone Head/Face: Normocephalic, atraumatic. Cardiovascular: Regular rate and rhythm. No pulse deficits. Respiratory: Mild tachypnea. Speaking full sentences. Also crying. Abdomen/GI: Soft, no focal tenderness. Negative Abel MS/ Extremity: Pulses equal, no cyanosis. Neurovascular intact. Full, normal range of motion. Equal circumference. Neuro: Awake and alert, GCS 15 Vital Signs: 02:32 Pulse 93; Resp 20; Temp 97.9; Pulse Ox 99% on R/A; Weight 111.13 kg; Height 5 ft. 8 in. rv1 ; Pain 10/10; 03:06 BP 126 / 85; vc1 04:34 BP 149 / 87; Pulse 86; Resp 20; Pulse Ox 97% ; vc1 05:30 BP 160 / 103; Pulse 86; Resp 17 S; Pulse Ox 97% on R/A; ha1 06:10 BP 132 / 82; Pulse 76; Resp 17 S; Pulse Ox 97% on R/A; ha1 07:09 BP 131 / 81; Pulse 81; Resp 19; Pulse Ox 97% on R/A; ha1 02:32 Body Mass Index 37.25 (111.13 kg, 172.72 cm) rv1 02:32 Pain Scale: Adult rv1 MDM: 02:21 Patient medically screened. rn 06:49 Differential diagnosis: bowel obstruction, diverticulitis, gastritis, gastroesophageal rn reflux disease, non-specific abd pain, pancreatitis, Peptic Ulcer Disease, Perf. Duodenal Ulcer, Perf. Gastric Ulcer. Differential diagnosis:. Data reviewed: vital signs, nurses notes, lab test result(s), radiologic studies, CT scan, ultrasound, and as a result, I will discharge patient. Counseling: I had a detailed discussion with the patient and/or guardian regarding the historical points, exam findings, and any diagnostic results supporting the discharge/admit diagnosis, lab results, radiology results, the need for outpatient follow up, to return to the emergency department if symptoms worsen or persist or if there are any questions or concerns that arise at home. Response to treatment: the patient's symptoms have mildly improved after treatment, and as a result, I will discharge patient. Special discussion: Based on the patient's Hx, exam, and Dx evaluation, there is no indication for emergent surgery or inpatient Tx. It is understood by the patient/guardian that if the Sx's persist or worsen they need to return immediately for re-evaluation. I discussed with the patient/guardian in detail that at this point there is no indication for admission to the hospital. It is understood, however, that if the symptoms persist or worsen the patient needs to return immediately for re-evaluation. ED course: No acute findings or changes compared to yesterday's admission. Patient still with possible enteritis. Will DC home with antibiotics and pain medication with return precautions and urged to follow-up with GI as well.. 11/17 03:03 Order name: CBC with Diff; Complete Time: 04:11 rn 11/17 03:03 Order name: CMP; Complete Time: 04:11 rn 11/17 03:03 Order name: Lipase; Complete Time: 04:11 rn 11/17 03:03 Order name: CT Abd/Pelvis - IV Contrast Only rn 11/17 05:53 Order name: Abdomen Exam Limited EDKS 11/17 03:03 Order name: IV Saline Lock; Complete Time: 03:43 rn 11/17 03:03 Order name: Labs collected and sent; Complete Time: 03:43 rn Administered Medications: 04:06 Drug: NS 0.9% IV 1000 ml IV at 1 bolus Per protocol; 1000 mL bolus Route: IV; Rate: 1 vc1 bolus; Site: right antecubital; 07:10 Follow up: IV Status: Completed infusion; IV Intake: 400ml ha1 04:06 Drug: Famotidine IVP 20 mg IVP once; dilute with 10 mL 0.9% NaCl; give over 2 minutes vc1 Route: IVP; Site: right antecubital; 04:34 Follow up: Response: No adverse reaction; Marked relief of symptoms vc1 04:06 Drug: Ondansetron IVP 4 mg IVP once; over 2 minutes Route: IVP; Site: right antecubital;vc1 04:35 Follow up: Response: No adverse reaction; Marked relief of symptoms vc1 04:06 Drug: morphine IVP or IV 4 mg IVP once over 4 mins Route: IVP; Infused Over: 4 mins; vc1 Site: right antecubital; 04:35 Follow up: Response: No adverse reaction; Marked relief of symptoms vc1 06:48 Drug: Ciprofloxacin PO 500 mg PO once Route: PO; vc1 07:10 Follow up: Response: No adverse reaction ha1 06:48 Drug: metroNIDAZOLE PO 500 mg PO once Route: PO; vc1 07:10 Follow up: Response: No adverse reaction ha1 06:48 Drug: Dicyclomine IM 20 mg IM once Route: IM; Site: right ventrogluteal; vc1 07:10 Follow up: Response: No adverse reaction ha1 Disposition Summary: 11/17/23 06:50 Discharge Ordered Notes: Location: Home rn Problem: an ongoing problem rn Symptoms: have improved rn Condition: Stable rn Diagnosis - Infectious gastroenteritis and colitis, unspecified rn - Upper abdominal pain, unspecified rn Followup: rn - With: Anton Grimes MD - When: As needed - Reason: Recheck today's complaints, Re-evaluation by your physician Discharge Instructions: - Discharge Summary Sheet rn - Abdominal Pain, Adult rn - Nausea and Vomiting, Adult rn - Viral Gastroenteritis, Adult rn - Colitis rn Forms: - Medication Reconciliation Form rn - Thank You Letter rn - Antibiotic furniture removalist's assistant - Prescription Opioid Use rn - Patient Portal Instructions rn - Leadership Thank You Letter rn Prescriptions: - ondansetron 4 mg Oral Tablet,disintegrating - take 1 tablet ORAL route every 8 hours As needed; 12 tablet; Refills: 0, rn Product Selection Permitted - Flagyl 500 mg Oral Tablet - take 1 tablet ORAL route every 8 hours for 10 days; 30 tablet; Refills: 0, rn Product Selection Permitted - Cipro 500 mg Oral tablet - take 1 tablet ORAL route every 12 hours for 10 days; 20 tablet; Refills: 0, rn Product Selection Permitted - Tramadol 50 mg Oral Tablet - take 1 tablet ORAL route every 8 hours as needed; 12 tablet; Refills: 0, rn Product Selection Permitted Signatures: Dispatcher [employer] Robb Mallory MD MD rn Imani Smith RN RN vc1 Debbi Yuan RN ha1 Corrections: (The following items were deleted from the chart) 04:40 04:12 Abdomen Limited+US.RAD.BRZ ordered. EDMS EDMS 05:53 04:40 Liver Only ordered. EDMS EDMS
--- NOTE | 2023-11-17 06:50 | ER ---
Nurse's Notes [facility] Name: Carrington Dumont Age: 48 yrs Sex: Male : 1975 Arrival Date: 11/17/2023 Time: 02:17 Bed 7 Private MD: Diagnosis: Infectious gastroenteritis and colitis, unspecified;Upper abdominal pain, unspecified Presentation: 11/17 02:40 Chief complaint: Patient states: I was just discharged for the same thing I was told if vc1 I am still having the pain to come back. Coronavirus screen: Vaccine status: Patient reports being unvaccinated. Client denies travel out of the [place] in the last 14 days. At this time, the client does not indicate any symptoms associated with coronavirus-19. Ebola Screen: Patient negative for fever greater than or equal to 101.5 degrees Fahrenheit, and additional compatible Ebola Virus Disease symptoms Patient denies exposure to infectious person. Patient denies travel to an Ebola-affected area in the 21 days before illness onset. No symptoms or risks identified at this time. Initial Sepsis Screen: Does the patient meet any 2 criteria? No. Patient's initial sepsis screen is negative. Does the patient have a suspected source of infection? No. Patient's initial sepsis screen is negative. Risk Assessment: Do you want to hurt yourself or someone else? Patient reports no desire to harm self or others. Onset of symptoms is unknown. Care prior to arrival: Medication(s) given: Tylenol, 2 grams. Activity prior to arrival: None. Mechanism of Injury: No Mechanism of Injury. Transition of care: patient was not received from another setting of care. 02:40 Method Of Arrival: Ambulatory vc1 02:40 Acuity: DAYANNA 3 vc1 02:46 Note Pt states states the pain is from taking Mounjaro. vc1 Triage Assessment: 02:42 General: Appears uncomfortable, Behavior is cooperative, crying. Pain: Complains of vc1 pain in left frontal area, left side of the back of head, right frontal area, right side of the back of head and abdomen Pain does not radiate. Pain currently is 10 out of 10 on a pain scale. Quality of pain is described as pressure Is continuous, Noted to be crying, grimacing, guarding. EENT: No deficits noted. No signs and/or symptoms were reported regarding the EENT system. Neuro: Level of Consciousness is awake, alert, obeys commands, Oriented to person, place, time, situation, Appropriate for age Reports headache in entire parietal area, frontal area. Cardiovascular: No deficits noted. Respiratory: Airway is patent Respiratory effort is even, unlabored, Respiratory pattern is regular, symmetrical. GI: Reports lower abdominal pain, upper abdominal pain. : No deficits noted. No signs and/or symptoms were reported regarding the genitourinary system. Derm: No deficits noted. No signs and/or symptoms reported regarding the dermatologic system. Musculoskeletal: No deficits noted. No signs and/or symptoms reported regarding the musculoskeletal system. Historical: - Allergies: 02:42 PENICILLINS; vc1 - Home Meds: 02:42 enalapril maleate 10 mg Oral tab 1 tab once daily [Active]; levothyroxine 125 mcg tab 1 vc1 tab once daily [Active]; Pepcid Oral [Active]; - PMHx: 02:42 Hypertension; Hypothyroidism; vc1 - PSHx: 02:42 Cholecystectomy; vc1 - Immunization history:: Client reports having NOT received the Covid vaccine. Flu vaccine is not up to date. - Social history:: Smoking status: Patient reports the use of cigarette tobacco products, 5 cig/day. - Family history:: not pertinent. - Hospitalizations: : The patient was recently seen at [facility]. Screenin:48 [facility] ED Fall Risk Assessment (Adult) History of falling in the last 3 months, vc1 including since admission No falls in past 3 months (0 pts) Confusion or Disorientation No (0 pts) Intoxicated or Sedated No (0 pts) Impaired Gait No (0 pts) Mobility Assist Device Used No (0 pt) Altered Elimination No (0 pt) Score/Fall Risk Level 0 - 2 = Low Risk Oriented to surroundings, Maintained a safe environment, Educated pt \T\ family on fall prevention, incl call for assistance when getting out of bed. Abuse screen: Denies threats or abuse. Nutritional screening: No deficits noted. 02:48 Tuberculosis screening: No symptoms or risk factors identified. vc1 Assessment: 02:49 GI: Bowel sounds present X 4 quads. hyperactive in right upper quadrant, left upper vc1 quadrant, right lower quadrant and left lower quadrant Abd is soft Abdomen is tender to palpation X 4 quads. 03:30 Reassessment: Patient and/or family updated on plan of care and expected duration. Pain ha1 level reassessed. Patient is alert, oriented x 3, equal unlabored respirations, skin warm/dry/pink. 04:34 Reassessment: Patient and/or family updated on plan of care and expected duration. Pain vc1 level reassessed. Patient is alert, oriented x 3, equal unlabored respirations, skin warm/dry/pink. Patient states symptoms have improved. 05:30 Reassessment: Patient and/or family updated on plan of care and expected duration. Pain ha1 level reassessed. Patient is alert, oriented x 3, equal unlabored respirations, skin warm/dry/pink. 06:27 Reassessment: Patient and/or family updated on plan of care and expected duration. Pain ha1 level reassessed. Patient is alert, oriented x 3, equal unlabored respirations, skin warm/dry/pink. 07:00 Reassessment: Report received from night shift manager RN. ha1 07:09 Reassessment: No changes from previously documented assessment. Patient and/or family ha1 updated on plan of care and expected duration. Pain level reassessed. Patient is alert, oriented x 3, equal unlabored respirations, skin warm/dry/pink. Vital Signs: 02:32 Pulse 93; Resp 20; Temp 97.9; Pulse Ox 99% on R/A; Weight 111.13 kg; Height 5 ft. 8 in. rv1 ; Pain 10/10; 03:06 BP 126 / 85; vc1 04:34 BP 149 / 87; Pulse 86; Resp 20; Pulse Ox 97% ; vc1 05:30 BP 160 / 103; Pulse 86; Resp 17 S; Pulse Ox 97% on R/A; ha1 06:10 BP 132 / 82; Pulse 76; Resp 17 S; Pulse Ox 97% on R/A; ha1 07:09 BP 131 / 81; Pulse 81; Resp 19; Pulse Ox 97% on R/A; ha1 02:32 Body Mass Index 37.25 (111.13 kg, 172.72 cm) rv1 02:32 Pain Scale: Adult rv1 ED Course: 02:19 Patient arrived in ED. ag3 02:20 Robb Cox MD is Attending Physician. rn 02:34 Calcote, Imani, RN is Primary Nurse. vc1 02:40 Inserted saline lock: 20 gauge in right antecubital area, using aseptic technique. ha1 Blood collected. 02:42 Triage completed. vc1 02:47 Arm band placed on right wrist. vc1 02:48 Patient has correct armband on for positive identification. Placed in gown. Bed in low vc1 position. Call light in reach. Client placed on continuous cardiac and pulse oximetry monitoring. NIBP monitoring applied. 03:43 CMP Sent. ha1 03:43 Lipase Sent. ha1 04:15 CT Abd/Pelvis - IV Contrast Only In Process Unspecified. EDMS 05:53 Abdomen Exam Limited In Process Unspecified. EDMS 06:50 Anton Grimes MD is Referral Physician. rn 07:09 No provider procedures requiring assistance completed. IV discontinued, intact, ha1 bleeding controlled, No redness/swelling at site. Pressure dressing applied. 07:11 Provided Education on: n/a. ha1 Administered Medications: 04:06 Drug: NS 0.9% IV 1000 ml IV at 1 bolus Per protocol; 1000 mL bolus Route: IV; Rate: 1 vc1 bolus; Site: right antecubital; 07:10 Follow up: IV Status: Completed infusion; IV Intake: 400ml ha1 04:06 Drug: Famotidine IVP 20 mg IVP once; dilute with 10 mL 0.9% NaCl; give over 2 minutes vc1 Route: IVP; Site: right antecubital; 04:34 Follow up: Response: No adverse reaction; Marked relief of symptoms vc1 04:06 Drug: Ondansetron IVP 4 mg IVP once; over 2 minutes Route: IVP; Site: right antecubital;vc1 04:35 Follow up: Response: No adverse reaction; Marked relief of symptoms vc1 04:06 Drug: morphine IVP or IV 4 mg IVP once over 4 mins Route: IVP; Infused Over: 4 mins; vc1 Site: right antecubital; 04:35 Follow up: Response: No adverse reaction; Marked relief of symptoms vc1 06:48 Drug: Ciprofloxacin PO 500 mg PO once Route: PO; vc1 07:10 Follow up: Response: No adverse reaction ha1 06:48 Drug: metroNIDAZOLE PO 500 mg PO once Route: PO; vc1 07:10 Follow up: Response: No adverse reaction ha1 06:48 Drug: Dicyclomine IM 20 mg IM once Route: IM; Site: right ventrogluteal; vc1 07:10 Follow up: Response: No adverse reaction ha1 Medication: 02:48 VIS not applicable for this client. vc1 Intake: 07:10 IV: 400ml; Total: 400ml. ha1 Outcome: 06:50 Discharge ordered by . rn 07:11 Discharged to home ambulatory, ha1 07:11 Condition: stable 07:11 Discharge instructions given to patient, Instructed on discharge instructions, follow up and referral plans. medication usage, Demonstrated understanding of instructions, follow-up care, medications, Prescriptions given X 4, 07:12 Patient left the ED. ha1 Signatures: Dispatcher [employer] EDMS Robb Cox MD MD rn Gomez, Alice ag3 Imani Smith RN RN vc1 Debbi Yuan RN RN ha1 Giovanna Pugh rv1 Corrections: (The following items were deleted from the chart) 05:53 05:12 In radiology for Liver Only. EDNC EDNC
[2023-11-17 07:47] VITALS: BP 131/81; TEMP 97.9; O2SAT 97
--- NOTE | 2023-11-17 12:07 | RAD REPORT ---
EXAM DESCRIPTION: US - Abdomen Exam Limited - 11/17/2023 5:51 am CLINICAL HISTORY: The patient is 48 years old and is Male; elevated alk phos TECHNIQUE: Real-time ultrasound of the right upper quadrant with image documentation. COMPARISON: No relevant prior studies available. FINDINGS: Liver: Hepatomegaly. Liver is diffusely echogenic which can be seen with hepatic steatosis. No intrahepatic bile duct dilation. Gallbladder: Gallbladder is not seen. Common bile duct: Common bile duct is normal. No stones. No dilation. Pancreas: Visualized pancreas is normal. Right kidney: Unremarkable. No stones. No solid mass. No hydronephrosis. Spleen: Visualized spleen is normal. IMPRESSION: 1. Hepatomegaly. 2. Liver is diffusely echogenic which can be seen with hepatic steatosis. Electronically signed by: Edouard Che MD 11/17/2023 05:28 AM JAIL MANAGER Due to temporary technical issues with the PACS/Fluency reporting system, reports are being signed by the in house radiologist without review as a courtesy to ensure prompt reporting. The interpreting r adiologist is fully responsible for the content of the report.
--- NOTE | 2023-11-17 12:47 | RAD REPORT ---
EXAM DESCRIPTION: CT - Abdomen Pelvis W Contrast - 11/17/2023 6:44 am CLINICAL HISTORY: 48 years Male worsening abd pain;Abd pain TECHNIQUE: Axial CT imaging of the abdomen and pelvis was performed following the administration of intravenous contrast.. Oral contrast was not administered. Sagittal and coronal reconstructed image s were then performed. The CT study is performed according to ALARA (as low as reasonably achievabl e) or ALARA/IMAGE GENTLY, with automatic adjustment of mA and/or kV according to patient size. Performed on: 11/17/2023 at 4:11 AM. COMPARISON: No prior studies were available for comparison. FINDINGS: Lung bases: The lung bases are clear. Liver: The liver measures approximately 19 cm in craniocaudal dimension. No focal hepatic abnormaliti es are identified. Liver attenuation is within normal limits. The hepatic and portal veins are patent . Spleen: The spleen is normal in size, configuration and attenuation. Gallbladder and bile duct: The gallbladder is surgically absent. There is no biliary ductal dilatat ion. Pancreas: The pancreas is grossly normal in size and configuration. Adrenal Glands: The adrenal glands are normal in size and configuration. Kidneys: The kidneys are normal in size and configuration. There is no evidence of hydronephrosis. Th ere is no evidence of nephrolithiasis. No definite solid or cystic renal mass lesions are identified. Stomach: The stomach is grossly normal. There is no definite hiatal hernia. Bowel: The bowel gas pattern is non specific and non obstructive. There are multiple fluid filled col onic bowel loops which is nonspecific but can be seen with diarrheal disease/enteritis. There are sev eral distended but nondilated fluid-filled small bowel loops as well. Appendix: The appendix is normal. Free air: There is no evidence of free air. Free fluid: There is no evidence of free fluid. Vasculature: The aorta is normal in caliber and contour. The inferior vena cava is grossly unremarkab le. Lymphadenopathy: No pathologic lymphadenopathy is identified. Bladder: The bladder is incompletely distended on this examination. There is very mild diffuse bladde r wall thickening which may be due to incomplete distention of the bladder. A chronic inflammatory pr ocess is not excluded.. Reproductive: The prostate gland is grossly within normal limits. There are bilateral hydroceles. Bones: No acute osseous abnormalities are identified. There are pars defects bilaterally at L5 withou t evidence of spondylolisthesis. Soft tissues: No acute soft tissue abnormalities are identified. There are small bilateral fat-contai clotilde inguinal hernias. IMPRESSION: 1. There are multiple fluid filled colonic bowel loops which is nonspecific but can be seen with diarrheal disease/enteritis. There are several distended but nondilated fluid-filled small bowel loops as well. 2. Mild diffuse bladder wall thickening which may be due to incomplete distention of the bladder. A chronic inflammatory process is not excluded. 3. Bilateral hydroceles. 4. Pars defects bilaterally at L5 without evidence of spondylolisthesis. 5. Small bilateral fat-containing inguinal hernias. 6. Remote cholecystectomy. Electronically signed by: Pati Ramirez DO 11/17/2023 04:32 AM CERTIFIED PROFESSIONAL ERGONOMIST Due to temporary technical issues with the PACS/Fluency reporting system, reports are being signed by the in house radiologist without review as a courtesy to ensure prompt reporting. The interpreting r adiologist is fully responsible for the content of the report.
== END ==
LOC: ER 02:17
DX: A09 Infectious gastroenteritis and colitis, unspecified (principal); Z72.0 Tobacco use; Z88.0 Allergy status to penicillin
CPT/HCPCS: 85025; 36415; 83690; 80053; 74177; 76705; Q9967; J0500; J2405; J7030

== ENCOUNTER 2024-02-04 23:12 | Inpatient (IN) | payer OTHER, SELFPAY ==
--- OUTSIDE RECORDS SUMMARY | 2024-02-04 23:21 | XMS REPORT | Continuity of Care Document ---
Author Name Unknown Address [address] [facility] [place] [address] [facility] Address [address] [facility] [address] [place] [address] Care Team Providers Care Junior Sales Representative Name Role Phone PCP, PATIENT DOES NOT HAVE A Primary Care Physic bala Unavailable BABS BUSTAMANTE Attending Clinician Unavailable CHAPITO CONTRERAS Attending Clinician Unavailable Chapito Contreras MD Attending Clinician [phone] Nidia SOLANO Attending Clinician Unavailable Nidia Goss Attending Clinician [phone] JOSE FRANCISCO WALTERS Attending Clinician Unavailable Jose Francisco Walters MD Attending Clinician [phone] LOREN TAM Attending Clinician Unavailable LOREN TAM Attending Clinician Unavailable Loren Tam DO Attending Clinician [phone] Doctor Unassigned, [place] Attending Clinician U Patrick Quiroz Attending Clinician [phone] PATRICK VERGARA Attending Clinician Unavailable SOFIA ESCOBAR Attending Clinician Unavailable SOFIA ESCOBAR Attending Clinician Unavailable MARIE MORALES Attending Clinician Unavailab Marie Cespedes DO Attending Clinician [phone] SAQIB CLARKE Attending Clinician Unavailable Saqib Clarke DO Attending Clinician [phone] BENJAMIN ASHFORD Attending Clinician Unavailable Benjamin Ashford MD Attending Clinician [phone] Geoff Cardona MD Attending Clinician [phone] GEOFF CARDONA Attending Clinician Unavailable Kiki Mathur MD Attending Clinician KIKI MATHUR Attending Clinician UnavailGricelda Sherman MD Attending Clinician [phone] JOSE FRANCISCO WALTERS Admitting Clinician Unavailable CHAPITO CONTRERAS Admitting Clinician Unavailable LOREN TAM Admitting Clinician Unavailable PATRICK VERGARA Admitting Clinician Unavailable Nidia SOLANO Admitting Clinician Unavailable MARIE MORALES Admitting Clinician Unavailab Gricelda Brooks MD Admitting Clinician [phone] Payers Payer Name Policy Type Policy Number Effective Date Expirati on Date Source MEDICAID ALIEN PENDING PENDING 2024 00:00:00 [employer] [id number] 2023 00:00:00 [facility] [id number] 2023 00:00:00 Problems Condition Name Condition Details Condition Category Status Onset Date Resolution Date Last Treatment Date Treating Clinician Comments Source Obesity (BMI 30-39.9) Obesity (BMI 30-39.9) Disease Active 05-08 00:00: 00 [facility] Cigarette nicotine dependence without complicati on Cigarette nicotine dependence without complicati on Disease Active 2019-10 00:00: 00 [facility] Atypical chest pain Atypical chest pain Disease Active 2019-10 00:00: 00 [facility] Essential hypertensi on Essential hypertensi on Disease Active 2019-10 00:00: 00 [facility] No known active problems No known active problems Disease [facility] Allergies, Adverse Reactions, Alerts Allergy Name Allergy Type Status Severity Reaction(s) Onset Date Inactive Date Treating Clinician Comments Source Penicill in Propensi ty to adverse reaction s Active Unknown - See comments 03-30 00:00: 00 [facility] PENICILL IN DRUG INGREDI Active Unknown-Cmnt 6-11 00:00: 00 [facility] NO KNOWN ALLERGIE S Drug Class Active [facility] Social History Social Habit Start Date Stop Date Quantity Comments Source History of tobacco use Cigarette Smoker [facility] History SDOH Alcohol Frequency [facility] History SDOH Alcohol Std [facility]inks [facility] History SDOH Alcohol Binge [facility] Gender identity [facility] Alcohol intake 2024-02-04 00:00:00 2024-02-04 00:00:00 Current drinker of alcohol (finding) [facility] Exposure to SARS-CoV-2 (event) 2023-02-10 00:00:00 2023-02-20 18:06:00 Not sure [facility] Cigarettes smoked current (pack per day) - Reported 2021-05-08 00:00:00 2021-05-08 00:00:00 [facility] Alcohol Comment 2021-05-08 00:00:00 2021-05-08 00:00:00 6beers on the weekend [facility] Tobacco use and exposure 2021-05-08 00:00:00 2021-05-08 00:00:00 Smokeless tobacco non-user [facility] History of Social function 2020-08-29 00:00:00 2020-08-29 00:00:00 [facility] Sex Assigned At 1975 00:00:00 1975 00:00:00 [facility] Smoking Status Start Date Stop Date Source Smokes tobacco daily 2021-05-08 00:00:00 [facility] Medications Ordered Medication Name Filled Medication Name Start Date Stop Date Current Medication? Ordering Clinician Indication Dosage Frequency Signature (SIG) Comments Components Source iopamidol (ISOVUE 370-500 mL) injection 85 mL 02-03 18:00: 00 02-03 18:00 :00 No [id number] 85mL 85 mL, Intravenou s, ONCE, 1 dose, On Fri02/04/24 at 1300, Routine [facility] morpHINE (2 mg/mL) injection 2 mg 02-03 17:45: 00 02-03 18:48 :00 No 2mg 2 mg, Slow IV Push, ONCE, 1 dose, On Fri02/04/24 at 1245, STAT [facility] ondansetron (ZOFRAN (PF)) injection 4 mg 02-03 16:30: 00 02-03 17:15 :00 No 4mg 4 mg, Slow IV Push, ONCE, 1 dose, On Fri02/04/24 at 1130, FAWN [facility] ketorolac (TORADOL) injection 15 mg 02-03 16:30: 00 02-03 17:16 :00 No 15mg 15 mg, Slow IV Push, ONCE, 1 dose, On Fri02/04/24 at 1130, FAWN [facility] sodium chloride (NS) injection 5 mL 02-03 15:28: 49 Yes 5mL 5 mL, Intravenou s, PRN, Starting on Fri02/04/24 at 1028, Until Discontinu ed, Routine, IV line flushing [facility] dicyclomine (BENTYL) injection 20 mg 12-27 09:15: 00 Yes 20mg 20 mg, Intramuscu lar, QID, First dose on 12/28/23 at 0415, Until Discontinu ed, Routine [facility] maalox:diph enhydrAMINE :lidocaine 2 % viscous 1:1:1 (FIRST-MOUT HWASH BLM) oral suspension 15 mL 12-27 08:30: 00 12-27 08:27 :00 No 15mL 15 mL, Oral, ONCE, 1 dose, On 12/28/23 at 0330, Routine [facility] maalox:diph enhydrAMINE :lidocaine 2 % viscous 1:1:1 (FIRST-MOUT HWASH BLM) oral suspension 15 mL 11-06 07:15: 00 11-06 07:38 :00 No 15mL 15 mL, Oral, ONCE, 1 dose, On Ale 11/06/23 at 0115, Routine [facility] famotidine (PEPCID (PF)) injection 20 mg 11-06 07:15: 00 11-06 07:38 :00 No 20mg 20 mg, Slow IV Push, ONCE, 1 dose, On Ale 11/06/23 at 0115, FAWN [facility] NaCl 0.9% (NS) bolus infusion 1,000 mL 11-06 07:15: 00 11-06 07:38 :00 No 1000mL at 999 mL/hr, 1,000 mL, IV Infusion, ONCE, 1 dose, On Ale 11/06/23 at 0115, STAT [facility] ondansetron (ZOFRAN (PF)) injection 4 mg 11-06 07:15: 00 11-06 06:19 :00 No 4mg 4 mg, Slow IV Push, ONCE, 1 dose, On Ale 11/06/23 at 0115, FAWN [facility] dicyclomine (BENTYL) injection 20 mg 11-06 07:00: 00 11-06 07:00 :00 No 20mg 20 mg, Intramuscu lar, ONCE, 1 dose, On Ale 11/06/23 at 0100, Routine [facility] dicyclomine 20 mg tablet 11-06 00:00: 00 Yes 20mg Take 1 tablet by mouth 4 (four) times daily. Indication s: abdominal pain [facility] famotidine (PEPCID) 40 mg tablet 11-06 00:00: 00 Yes [id number] 40mg Take 1 tablet by mouth daily. [facility] acetaminoph en (TYLENOL) tablet 650 mg 11-01 09:30: 00 11-01 09:30 :00 No 650mg 650 mg, Oral, ONCE, 1 dose, On 11/01/23 at 0330, FAWN [facility] iopamidol (ISOVUE 370-500 mL) injection 100 mL 11-01 09:30: 00 11-01 09:30 :00 No [id number] 100mL 100 mL, Intravenou s, ONCE, 1 dose, On 11/01/23 at 0330, Routine [facility] morpHINE (4 mg/mL) injection 4 mg 11-01 07:00: 00 11-01 06:56 :00 No 4mg 4 mg, Slow IV Push, ONCE, 1 dose, On 11/01/23 at 0100, STAT [facility] ketorolac (TORADOL) injection 30 mg 11-01 06:45: 00 11-01 06:00 :00 No 30mg 30 mg, Slow IV Push, ONCE, 1 dose, On 11/01/23 at 0045, FAWN [facility] NaCl 0.9% (NS) bolus infusion 1,000 mL 11-01 06:45: 00 11-01 07:59 :00 No 1000mL at 999 mL/hr, 1,000 mL, IV Piggyback, ONCE, 1 dose, On 11/01/23 at 0045, STAT [facility] ondansetron (ZOFRAN (PF)) injection 4 mg 11-01 06:00: 00 11-01 05:59 :00 No 4mg 4 mg, Slow IV Push, ONCE, 1 dose, On 11/01/23 at 0000, FAWN [facility] morpHINE (4 mg/mL) injection 4 mg 11-01 06:00: 00 11-01 06:00 :00 No 4mg 4 mg, Slow IV Push, ONCE, 1 dose, On 11/01/23 at 0000, STAT [facility] famotidine (PEPCID) 20 mg tablet 11-01 00:00: 00 Yes [id number] 20mg Take 1 tablet by mouth 2 (two) times daily. [facility] dicyclomine 20 mg tablet 11-01 00:00: 00 Yes [id number] 20mg Take 1 tablet by mouth 3 (three) times daily as needed for Abdominal pain. [facility] iopamidol (ISOVUE 370-500 mL) injection 100 mL 10-23 08:00: 00 10-23 08:00 :00 No [id number] 100mL 100 mL, Intravenou s, ONCE, 1 dose, On Ale 10/23/23 at 0200, Routine [facility] FENTanyl PF (SUBLIMAZE (PF)) injection 50 mcg 10-23 08:00: 00 10-23 07:01 :00 No 50ug 50 mcg, Slow IV Push, ONCE, 1 dose, On Ale 10/23/23 at 0200, Routine [facility] ity [facility] ketorolac (TORADOL) injection 30 mg 10-23 07:15: 00 10-23 06:08 :00 No 30mg 30 mg, Slow IV Push, ONCE, 1 dose, On Ale 10/23/23 at 0115, Routine [facility] ondansetron (ZOFRAN (PF)) injection 4 mg 10-23 06:15: 00 10-23 06:08 :00 No 4mg 4 mg, Slow IV Push, ONCE, 1 dose, On Ale 10/23/23 at 0015, FAWN [facility] ketorolac 10 mg tablet 10-23 00:00: 00 Yes [id number] 10mg Take 1 tablet by mouth every 6 (six) hours as needed for Pain (scale 7-10). [facility] iopamidol (ISOVUE 370-500 mL) injection 100 mL 2022-10 07:15: 00 09-26 07:15 :00 No [id number] 100mL 100 mL, Intravenou s, ONCE, 1 dose, On Fri09/26/23 at 0115, Routine [facility] 30 mg 2022-10 07:00: 00 09-26 06:12 :00 No 30mg 30 mg, Slow IV Push, ONCE, 1 dose, On Fri09/26/23 at 0100, Routine [facility] NaCl 0.9% (NS) bolus infusion 1,000 mL 2022-10 06:00: 00 09-26 06:15 :00 No 1000mL at 999 mL/hr, 1,000 mL, IV Infusion, ONCE, 1 dose, On Fri09/26/23 at 0000, [facility] morpHINE (4 mg/mL) injection 4 mg 2022-10 05:30: 00 09-26 05:19 :00 No 4mg 4 mg, Slow IV Push, ONCE, 1 dose, On Ale 09/25/23 at 2330, STAT [facility] lactulose (CEPHULAC) solution 60 mL 2022-10 05:15: 00 09-26 05:13 :00 No 60mL 60 mL, Oral, ONCE, 1 dose, On Ale 09/25/23 at 2315, [facility] ondansetron (ZOFRAN (PF)) injection 4 mg 2022-10 05:15: 00 09-26 05:13 :00 No 4mg 4 mg, Slow IV Push, ONCE, 1 dose, On Ale 09/25/23 at 2315, [facility] SEMAGLUTIDE , WEIGHT LOSS, SC 2022-10 02:30: 30 Yes inject under the skin. [facility] iopamidol (ISOVUE 370-500 mL) injection 75 mL 2022-10 09:00: 00 08-24 09:00 :00 No [id number] 75mL 75 mL, Intravenou s, ONCE, 1 dose, On Fri08/24/23 at 0300, Routine [facility] ondansetron (ZOFRAN (PF)) injection 4 mg 2022-10 06:30: 00 08-24 08:15 :00 No 4mg 4 mg, Slow IV Push, ONCE, 1 dose, On Fri08/24/23 at 0130, [facility] morpHINE (4 mg/mL) injection 4 mg 2022-10 06:30: 00 08-24 08:14 :00 No 4mg 4 mg, Slow IV Push, ONCE, 1 dose, On Fri08/24/23 at 0130, STAT [facility] aspirin tablet 325 mg 2022-10 05:15: 00 08-24 05:18 :00 No 325mg 325 mg, Oral, ONCE, 1 dose, On Fri08/24/23 at 0015, STAT [facility] ketorolac (TORADOL) injection 30 mg 07-07 10:45: 00 07-07 09:53 :00 No 30mg 30 mg, Slow IV Push, ONCE, 1 dose, On Fri07/07/23 at 0545, Routine [facility] metoclopram [place] HCl (REGLAN) injection 10 mg 07-07 09:45: 00 07-07 09:54 :00 No 10mg 10 mg, Slow IV Push, ONCE, 1 dose, On Fri07/07/23 at 0445, [facility] butalbital- acetaminoph en-caff 50-325-40 mg tablet 07-07 00:00: 00 Yes [id number] 1{tbl} Take 1 tablet by mouth every 6 (six) hours as needed (Headache) . [facility] metFORMIN (GLUCOPHAGE ) tablet 500 mg 05-26 13:00: 00 Yes 500mg 500 mg, Oral, BID MEALS, First dose on Fri05/26/23 at 0800, Until Discontinu ed, Routine [facility] ketorolac (TORADOL) injection 15 mg 05-26 03:00: 00 05-26 02:19 :00 No 15mg 15 mg, Slow IV Push, ONCE, 1 dose, On Fri05/25/23 at 2200, [facility] nitroglycer in (NITROL) 2 % ointment 0.5 Inch 05-25 23:30: 00 05-26 01:27 :00 No .5[in_u s] 0.5 Inch, Transderma l (Apply To Skin), ONCE, 1 dose, On Fri05/25/23 at 1830, [facility] maalox:diph enhydrAMINE :lidocaine 2 % viscous 1:1:1 (FIRST-MOUT HWASH BLM) oral suspension 15 mL 05-25 23:30: 00 05-26 00:49 :00 No 15mL 15 mL, Oral (Swish & Swallow), ONCE, 1 dose, On [place] 05/25/23 at 1830, Routine [facility] aspirin chewable tablet 324 mg 05-25 23:30: 00 05-25 22:24 :00 No 324mg 324 mg, Oral, ONCE, 1 dose, On [place] 05/25/23 at 1830, Routine [facility] metFORMIN 500 mg tablet 05-25 00:00: 00 Yes [id number] 500mg Take 1 tablet by mouth 2 (two) times daily. [facility] naproxen (NAPROSYN) 500 mg tablet 05-25 00:00: 00 02-03 00:00 :00 No [id number] 500mg Take 1 tablet by mouth 2 (two) times daily with meals. [facility] cloNIDine (CATAPRES) tablet 0.2 mg 02-21 00:45: 00 02-21 01:50 :00 No .2mg 0.2 mg, Oral, ONCE, 1 dose, On [facility] 02/20/23 at 1945, FAWN [facility] ibuprofen (IBU) tablet 600 mg 02-20 23:30: 00 02-20 23:30 :00 No 600mg 600 mg, Oral, ONCE, 1 dose, On [facility] 02/20/23 at 1830, FAWN [facility] ibuprofen 600 mg tablet 02-20 00:00: 00 02-03 00:00 :00 No [id number] 600mg Take 1 tablet by mouth every 6 (six) hours as needed for Pain (scale 4-6) for up to 30 doses. [facility] iopamidol (ISOVUE 370-500 mL) injection 100 mL 3-12 09:15: 00 12-29 09:15 :00 No [id number] 100mL 100 mL, Intravenou s, ONCE, 1 dose, On 12/29/22 at 0415, Routine [facility] ketorolac (TORADOL) injection 30 mg 12-29 09:00: 00 12-29 07:53 :00 No 30mg 30 mg, Slow IV Push, ONCE, 1 dose, On 12/29/22 at 0400, Routine [facility] ondansetron (ZOFRAN) 4 mg tablet 12-29 00:00: 00 Yes [id number] 4mg Take 1 tablet by mouth every 8 (eight) hours as needed for Nausea and Vomiting (N/V). [facility] ketorolac 10 mg tablet 12-29 00:00: 00 Yes [id number] 10mg Take 1 tablet by mouth every 6 (six) hours as needed for Pain (scale 7-10). [facility] maalox:diph enhydrAMINE :lidocaine 2 % viscous 1:1:1 (FIRST-MOUT HWASH BLM) oral suspension 15 mL 11-21 08:45: 00 11-21 08:36 :00 No 15mL 15 mL, Oral, ONCE, 1 dose, On Ale 11/21/22 at 0245, Routine [facility] metoclopram [place] HCl (REGLAN) tablet 10 mg 06-02 12:30: 00 Yes 10mg 10 mg, Oral, AC, First dose on 06/02/22 at 0730, Until Discontinu ed, Routine [facility] dexamethaso ne (DECADRON PHOSPHATE) injection 10 mg 06-02 06:00: 00 06-02 04:55 :00 No 10mg 10 mg, Oral, ONCE, 1 dose, On 06/02/22 at 0100, Routine [facility] butalbital- acetaminoph en-caff (ESGIC) 50-325-40 mg tablet 1 tablet 06-02 05:00: 00 06-02 04:56 :00 No 1{tbl} 1 tablet, Oral, ONCE, 1 dose, On 06/02/22 at 0000, FAWN [facility] diphenhydrA MINE (BENADRYL) tablet 50 mg 06-02 05:00: 00 06-02 04:54 :00 No 50mg 50 mg, Oral, ONCE, 1 dose, On Fri06/02/22 at 0000, [facility]ROID[facility] 100 mcg 05-29 11:00: 00 Yes 100ug 100 mcg, Oral, QAM-0600, First dose on Fri05/29/22 at 0600, Until Discontinu ed, Routine [facility] levothyroxi ne 200 mcg tablet 05-28 13:18: 02 05-28 00:00 :00 No 300ug Take 300 mcg by mouth every morning. [facility] levothyroxi ne 300 mcg tablet 05-28 00:00: 00 08-27 05:59 :00 No [id number] 300ug Take 1 tablet by mouth every morning for 90 days. [facility] ketorolac (TORADOL) injection 15 mg 05-06 06:30: 00 05-06 05:30 :00 No 15mg 15 mg, Slow IV Push, ONCE, 1 dose, On Fri05/06/22 at 0130, [facility] (ISOVUE 370-500 mL) injection 65 mL 05-06 06:00: 00 05-06 06:15 :00 No [id number] 65mL 65 mL, Intravenou s, ONCE, 1 dose, On Fri05/06/22 at 0115, Routine [facility] benzonatate 200 mg capsule 05-06 00:00: 00 Yes [id number] 200mg Take 1 capsule by mouth 3 (three) times daily as needed for Cough for up to 20 doses. [facility] ondansetron 4 mg disintegrat ing tablet 05-06 00:00: 00 Yes [id number] 4mg Take 1 tablet by mouth every 8 (eight) hours as needed for Nausea and Vomiting (N/V). [facility] ibuprofen 600 mg tablet 05-06 00:00: 00 02-20 00:00 :00 No [id number] 600mg Take 1 tablet by mouth every 6 (six) hours as needed for Pain (scale 4-6). [facility] molnupiravi r 200 mg capsule 05-06 00:00: 00 05-12 04:59 :00 No [id number] 800mg Take 4 capsules by mouth every 12 (twelve) hours for 5 days. [facility] magnesium sulfate in water 2 gram/50 mL (4 %) infusion 2 g 05-01 13:45: 00 05-01 14:06 :00 No 2g 2 g, IV Piggyback, Administer over 60 Minutes, ONCE, 1 dose, On Fri05/01/22 at 0845, Routine [facility] diphenhydrA MINE (BENADRYL) injection 50 mg 05-01 12:45: 00 05-01 12:43 :00 No 50mg 50 mg, Slow IV Push, ONCE, 1 dose, On Fri05/01/22 at 0745, STAT [facility] maalox:diph enhydrAMINE :lidocaine 2 % viscous 1:1:1 (FIRST-MOUT HWASH BLM) oral suspension 15 mL 02-08 07:15: 00 02-08 06:14 :00 No 15mL 15 mL, Oral, ONCE, 1 dose, On Fri02/08/22 at 0215, FAWN [facility] sucralfate 1 gram tablet 02-08 00:00: 00 Yes [id number] 1g Take 1 tablet by mouth before meals and at bedtime. [facility] ondansetron 4 mg disintegrat ing tablet 02-08 00:00: 00 Yes [id number] 4mg Take 1 tablet by mouth every 4 (four) hours as needed for Nausea and Vomiting (N/V). [facility] pantoprazol e 40 mg EC tablet 02-08 00:00: 00 Yes [id number] 40mg Take 1 tablet by mouth daily. [facility] maalox:diph enhydrAMINE :lidocaine 2 % viscous 1:1:1 (FIRST-MOUT HWASH BLM) oral suspension 15 mL 2020-10 02:15: 00 10-15 01:17 :00 No 15mL 15 mL, Oral, ONCE, 1 dose, On Fri10/14/21 at 2015, Routine [facility] iopamidol (ISOVUE 370-500 mL) injection 120 mL 2020-10 01:45: 00 10-15 00:37 :00 No [id number] 120mL 120 mL, Intravenou s, ONCE, 1 dose, On Fri10/14/21 at 1945, Routine [facility] famotidine (PEPCID (PF)) injection 20 mg 2020-10 00:30: 00 10-15 00:26 :00 No 20mg 20 mg, Slow IV Push, ONCE, 1 dose, On Fri10/14/21 at 1830, Routine [facility] enalapril 20 mg tablet 05-15 17:24: 35 Yes 25mg Take 25 mg by mouth daily. [facility] levothyroxi ne 200 mcg tablet 05-15 17:24: 35 Yes 300ug Take 300 mcg by mouth every morning. [facility] enalapril 20 mg tablet 05-15 12:24: 35 Yes 25mg Take 25 mg by mouth daily. [facility] levothyroxi ne 200 mcg tablet 05-15 12:24: 35 Yes 300ug Take 300 mcg by mouth every morning. [facility] FENTanyl (ACTIQ) lollipop 600 mcg 05-08 19:45: 00 05-08 18:59 :00 No [id number] 600ug 600 mcg, Buccal, ONCE, 1 dose, Fri05/08/21 at 1445, Routine [facility] sulfamethox azole-trime thoprim (BACTRIM DS) 800-160 mg per tablet 05-08 00:00: 00 05-16 04:59 :00 No [id number] 1{tbl} Take 1 tablet by mouth 2 (two) times daily for 7 days. [facility] HYDROcodone -acetaminop hen (NORCO) 10-325 mg tablet 1 tablet 05-06 09:45: 00 05-06 08:44 :00 No 1{tbl} 1 tablet, Oral, ONCE, 1 dose, 05/06/21 at 0445, Routine [facility] sulfamethox azole-trime thoprim 800-160 mg per tablet 05-06 00:00: 00 Yes [id number] 1{tbl} Take 1 tablet by mouth every 12 (twelve) hours. [facility] HYDROcodone -acetaminop hen 5-325 mg tablet 05-06 00:00: 00 05-14 04:59 :00 No [id number] 1{tbl} Take 1 tablet by mouth every 4 (four) hours as needed for Pain (scale 7-10) for up to 7 days. Indication s: acute pain [facility] ketorolac (TORADOL) injection 30 mg 03-15 06:30: 00 03-15 05:44 :00 No 30mg 30 mg, Slow IV Push, ONCE, 1 dose, [facility] 03/15/21 at 0130, Routine
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 : CHAPITO CONTRERAS [facility] enalapril 20 mg tablet 03-15 06:19: 47 Yes 25mg Take 25 mg by mouth daily. [facility] levothyroxi ne 200 mcg tablet 03-15 06:19: 47 Yes 300ug Take 300 mcg by mouth every morning. [facility] iopamidol (ISOVUE 370-500 mL) injection 120 mL 03-15 06:00: 00 03-15 06:00 :00 No [id number] 120mL 120 mL, Intravenou s, ONCE, 1 dose, [facility] 03/15/21 at 0100, Routine [facility] KCL (KLOR-CON M20) tablet 40 mEq 03-15 05:45: 00 03-15 05:01 :00 No [id number] 40 mEq, Oral, ONCE, 1 dose, Ale 03/15/21 at 0045, Routine [facility] ondansetron (ZOFRAN (PF)) injection 4 mg 03-15 05:30: 00 03-15 04:32 :00 No 4mg 4 mg, Slow IV Push, ONCE, 1 dose, Ale 03/15/21 at 0030, FAWN [facility] FENTanyl PF (SUBLIMAZE (PF)) injection 75 mcg 03-15 05:30: 00 03-15 04:32 :00 No 75ug 75 mcg, Slow IV Push, ONCE, 1 dose, Ale 03/15/21 at 0030, Routine [facility] traMADoL (ULTRAM) 50 mg tablet 03-15 00:00: 00 Yes [id number] 50mg Take 1 tablet by mouth every 6 (six) hours as needed for Pain (scale 4-6) or Pain (scale 7-10). Indication s: acute pain [facility] methocarbam oL 500 mg tablet 03-15 00:00: 00 Yes [id number] 500mg Take 1 tablet by mouth every 6 (six) hours as needed (MUSCLE SPASM). [facility] ibuprofen 800 mg tablet 03-15 00:00: 00 02-20 00:00 :00 No [id number] 800mg Take 1 tablet by mouth every 8 (eight) hours as needed for Pain (scale 4-6). [facility] pantoprazol e (PROTONIX) 80 mg in NaCl 0.9% (NS) 20 mL syringe 2019-10 00:15: 00 09-08 23:17 :00 No 80mg 80 mg, IV Push, ONCE, 1 dose, 09/08/20 at 1815, 20 mL [facility] maalox:diph enhydrAMINE :lidocaine2 %viscous 1:1:1: suspension (COMPOUNDED ) 2019-10 00:15: 00 09-08 23:16 :00 No 15mL 15 mL, Oral, ONCE, 1 dose, 09/08/20 at 1815, Routine [facility] sucralfate 1 gram tablet 2019-10 00:00: 00 03-14 00:00 :00 No [id number] 1g Take 1 tablet by mouth before meals and at bedtime. [facility] dicyclomine (BENTYL) 10 mg capsule 2019-10 00:00: 00 03-14 00:00 :00 No [id number] 10mg Take 1 capsule by mouth every 8 (eight) hours as needed for Abdominal pain. [facility] ondansetron 4 mg disintegrat ing tablet 2019-10 00:00: 00 03-14 00:00 :00 No [id number] 4mg Take 1 tablet by mouth every 8 (eight) hours as needed for Nausea and Vomiting (N/V). [facility] omeprazole 20 mg capsule 2019-10 00:00: 00 10-09 05:59 :00 No [id number] 20mg Take 1 capsule by mouth daily for 30 days. [facility] ketorolac (TORADOL) injection 30 mg 2019-10 20:15: 00 09-06 19:14 :00 No 30mg 30 mg, Slow IV Push, ONCE, 1 dose, Fri09/06/20 at 1415, FAWN
Fa culty member approving Restricted medication : Nidia SOLANO [facility] FENTanyl PF (SUBLIMAZE (PF)) injection 50 mcg 2019-10 18:45: 00 09-06 17:38 :00 No 50ug 50 mcg, Slow IV Push, ONCE, 1 dose, Fri09/06/20 at 1245, STAT [facility] iohexol (OMNIPAQUE 350 BULK-500 mL) injection 150 mL 2019-10 18:15: 00 09-06 17:00 :00 No 150mL 150 mL, Intravenou s, ONCE, 1 dose, 09/06/20 at 1215, Routine [facility] ondansetron (ZOFRAN (PF)) injection 4 mg 2019-10 17:30: 00 09-06 16:33 :00 No 4mg 4 mg, Slow IV Push, ONCE, 1 dose, Fri09/06/20 at 1130, FAWN [facility] morpHINE injection 4 mg 2019-10 17:30: 00 09-06 16:33 :00 No 4mg 4 mg, Slow IV Push, ONCE, 1 dose, Fri09/06/20 at 1130, STAT [facility] ibuprofen 600 mg tablet 2019-10 00:00: 00 03-14 00:00 :00 No [id number] 600mg Take 1 tablet by mouth every 6 (six) hours as needed for Pain (scale 4-6). [facility] Polyethylen e Glycol 3350 (MIRALAX) powder 17 g 2019-10 13:00: 00 08-30 11:55 :00 No 17g 17 g, Oral, ONCE, 1 dose, Fri08/30/20 at 0700, Routine [facility] aspirin 81 mg chewable tablet 2019-10 00:00: 00 09-30 05:59 :00 No [id number] 81mg Take 1 tablet by mouth daily for 30 days. [facility] levothyroxi ne 125 mcg tablet 2019-10 23:22: 41 08-29 00:00 :00 No 300ug Take 300 mcg by mouth every morning. [facility] lisinopriL 30 mg tablet 2019-10 23:22: 41 08-29 00:00 :00 No 25mg Take 25 mg by mouth daily. [facility] ondansetron (ZOFRAN (PF)) injection 4 mg 2019-10 23:15: 07 08-31 23:14 :07 No 4mg 4 mg, Slow IV Push, Q6HPRN, Starting Fri08/29/20 at 1715, Until Fri08/31/20 at 1714, Routine, Nausea and Vomiting (N/V) [facility] morpHINE injection 2 mg 2019-10 22:49: 42 08-30 22:48 :42 No 2mg 2 mg, Slow IV Push, Q4HPRN, Starting Fri08/29/20 at 1649, Until Fri08/30/20 at 1648, Routine, Pain (scale 7-10) [facility] ondansetron (ZOFRAN (PF)) injection 4 mg 2019-10 18:03: 34 08-29 22:50 :21 No 4mg 4 mg, Slow IV Push, Q6HPRN, Starting Fri08/29/20 at 1203, Until Fri08/29/20 at 1650, Routine, Nausea and Vomiting (N/V) [facility] ibuprofen (IBU) tablet 600 mg 2019-10 18:00: 00 Yes 600mg 600 mg, Oral, Q6H, First dose on Fri08/29/20 at 1200, Until Discontinu ed, Routine [facility] acetaminoph en (TYLENOL) tablet 500 mg 2019-10 18:00: 00 Yes 500mg 500 mg, Oral, Q6H, First dose on Fri08/29/20 at 1200, Until Discontinu ed, Routine [facility] lactated ringers IV infusion 1,000 mL 2019-10 17:00: 00 Yes 1000mL at 75 mL/hr, 1,000 mL, IV Infusion, CONTINUOUS , Starting Fri08/29/20 at 1100, Until Discontinu ed, Routine, PACU [facility] FENTanyl PF (SUBLIMAZE (PF)) injection 25 mcg 2019-10 16:57: 53 08-29 17:58 :11 No 25ug 25 mcg, Slow IV Push, Q5MIN PRN, 4 doses, Starting Fri08/29/20 at 1057, Until Fri08/29/20 at 1158, Routine, Pain (scale 4-6), PACU [facility] ondansetron (ZOFRAN (PF)) injection 4 mg 2019-10 16:57: 53 08-29 17:13 :00 No 4mg 4 mg, Slow IV Push, PRN, 1 dose, Starting Fri08/29/20 at 1057, Until Fri08/29/20 at 1113, Routine, Nausea and Vomiting (N/V), PACU [facility] traMADoL (ULTRAM) tablet 100 mg 2019-10 16:11: 10 08-29 22:51 :09 No 100mg 100 mg, Oral, Q6HPRN, Starting Fri08/29/20 at 1011, Until Fri08/29/20 at 1651, Routine, Pain (scale 7-10) [facility] traMADoL (ULTRAM) tablet 50 mg 2019-10 16:10: 52 Yes 50mg 50 mg, Oral, Q6HPRN, Starting Fri08/29/20 at 1010, Until Discontinu ed, Routine, Pain (scale 4-6) [facility] acetaminoph en ADULT (OFIRMEV) injection 1,000 mg 2019-10 00:15: 00 08-29 16:11 :33 No 1000mg 1,000 mg, IV Infusion, Administer over 15 Minutes, Q6H ABX, 4 doses, First dose on Fri08/28/20 at 1815, Last dose on Fri08/29/20 at 1215, Routine
Indicatio n: Non-periop erative Patient
Approved by: Per Policy (NPO Status) [facility] metroNIDAZO LE in NaCl (iso-os) (FLAGYL I.V.) RTU IV infusion 500 mg 2019-10 00:15: 00 08-29 16:11 :42 No 500mg 500 mg, IV Infusion, Q8H ABX, First dose on Fri08/28/20 at 1815, Until Discontinu ed, 100 mL
Reas on for Anti-Infec tive: Empiric Therapy for Suspected Infection< br>Empiric Therapy Site: Abdominal< br>Duratio n of therapy: 7 days [facility] levoFLOXaci n in D5W (LEVAQUIN) 750 mg/150 mL Piggyback 750 mg 2019-10 00:15: 00 08-29 16:11 :42 No 750mg 750 mg, IV Piggyback, Administer over 90 Minutes, Q24H ABX, First dose on Fri08/28/20 at 1815, Until Discontinu ed, FAWN
Re ason for Anti-Infec tive: Empiric Therapy for Suspected Infection< br>Empiric Therapy Site: Abdominal< br>Duratio n of therapy: 72 hours [facility] levothyroxi ne 125 mcg tablet 2019-10 00:00: 00 09-29 05:59 :00 No [id number] 312.5ug Take 2.5 tablets by mouth every morning for 30 days. [facility] lisinopriL 30 mg tablet 2019-10 00:00: 00 09-29 05:59 :00 No [id number] 30mg Take 1 tablet by mouth daily for 30 days. [facility] pantoprazol e (PROTONIX) 40 mg EC tablet 2019-10 00:00: 00 09-29 05:59 :00 No [id number] 40mg Take 1 tablet by mouth daily for 30 days. [facility] ibuprofen 800 mg tablet 2019-10 00:00: 00 09-04 05:59 :00 No [id number] 800mg Take 1 tablet by mouth every 8 (eight) hours as needed for Pain (scale 4-6) for up to 5 days. [facility] sulfur hexafluorid e microsphr (LUMASON) injection 5 mL 2019-10 21:30: 00 08-28 16:58 :00 No 5mL 5 mL, Intravenou s, ONCE, 1 dose, Fri08/28/20 at 1530, Routine
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 : DARIAN DAVENPORT [facility] morpHINE injection 4 mg 2019-10 20:09: 08 08-29 16:11 :42 No 4mg 4 mg, Slow IV Push, Q4HPRN, Starting Fri08/28/20 at 1409, Until Fri08/29/20 at 1011, Routine, Pain (scale 7-10) [facility] morpHINE injection 2 mg 2019-10 18:15: 00 08-28 17:20 :00 No 2mg 2 mg, Slow IV Push, ONCE, 1 dose, Fri08/28/20 at 1215, Routine [facility] levothyroxi ne (SYNTHROID) tablet 200 mcg 2019-10 12:00: 00 Yes 200ug 200 mcg, Oral, QAM-0600, First dose (after last modificati on) on 08/28/20 at 0600, Until Discontinu ed, Routine [facility] enoxaparin (LOVENOX) injection 40 mg 2019-10 23:00: 00 Yes 40mg 40 mg, Subcutaneo us, DAILY, First dose on 08/27/20 at 1700, Until Discontinu ed, Routine [facility] ketorolac (TORADOL) injection 30 mg 2019-10 15:45: 00 08-27 14:53 :00 No 30mg 30 mg, Slow IV Push, ONCE, 1 dose, 08/27/20 at 0945, Routine
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 : DOMINGO ANNE [facility] lisinopriL (PRINIVIL,Z ESTRIL) tablet 20 mg 2019-10 15:00: 00 Yes 20mg 20 mg, Oral, DAILY, First dose on 08/27/20 at 0900, Until Discontinu ed, Routine [facility] pantoprazol e (PROTONIX) EC tablet 40 mg 2019-10 15:00: 00 Yes 40mg 40 mg, Oral, DAILY, First dose on 08/27/20 at 0900, Until Discontinu ed, Routine [facility] aspirin chewable tablet 81 mg 2019-10 15:00: 00 Yes 81mg 81 mg, Oral, DAILY, First dose on 08/27/20 at 0900, Until Discontinu ed, Routine [facility] levothyroxi ne (SYNTHROID) tablet 300 mcg 2019-10 12:00: 00 08-27 14:38 :59 No 300ug 300 mcg, Oral, QAM-0600, First dose on 08/27/20 at 0600, Until Discontinu ed, Routine [facility] nicotine (NICODERM) 21 mg/24 hr patch 1 Patch 2019-10 08:30: 00 Yes 1{patch } 1 Patch, Topical, Administer over 24 Hours, Q24H, First dose on 08/27/20 at 0230, Until Discontinu ed, Routine [facility] acetaminoph en (TYLENOL) tablet 975 mg 2019-10 08:15: 00 08-27 07:56 :00 No 975mg 975 mg, Oral, ONCE, 1 dose, [place] 08/27/20 at 0215, FAWN [facility] iohexol (OMNIPAQUE 350 BULK-100 mL) injection 120 mL 2019-10 07:45: 00 08-27 07:34 :00 No 120mL 120 mL, Intravenou s, ONCE, 1 dose, [place] 08/27/20 at 0145, Routine [facility] traMADoL (ULTRAM) tablet 50 mg 2019-10 07:16: 43 08-29 07:15 :43 No 50mg 50 mg, Oral, Q8HPRN, Starting [place] 08/27/20 at 0116, Until 08/29/20 at 0115, Routine, Pain (scale 4-6) [facility] acetaminoph en (TYLENOL) tablet 650 mg 2019-10 07:16: 41 08-28 23:11 :03 No 650mg 650 mg, Oral, Q6HPRN, Starting 08/27/20 at 0116, Until 08/28/20 at 1711, Routine, Pain (scale 1-3) [facility] morpHINE injection 2 mg 2019-10 07:14: 54 08-28 20:09 :18 No 2mg 2 mg, Slow IV Push, Q4HPRN, Starting 08/27/20 at 0114, Until 08/28/20 at 1409, Routine, Pain (scale 7-10) [facility] nitroglycer in (NITROSTAT) sublingual tablet 0.4 mg 2019-10 07:03: 30 Yes .4mg 0.4 mg, Sublingual , Q5MIN PRN, Starting [place] 08/27/20 at 0103, Until Discontinu ed, Routine, Chest pain [facility] alum-mag hydroxide-s imeth (MAALOX PLUS / MAG-AL PLUS) 200-200-20 mg/5 mL suspension 30 mL 2019-10 07:02: 48 Yes 30mL 30 mL, Oral, Q6HPRN, Starting 08/27/20 at 0102, Until Discontinu ed, Routine, Indigestio n [facility] aspirin tablet 325 mg 2019-10 07:00: 00 08-27 06:16 :00 No 325mg 325 mg, Oral, ONCE, 1 dose, 08/27/20 at 0100, STAT [facility] nitroglycer in (NITROSTAT) sublingual tablet 0.4 mg 2019-10 07:00: 00 08-27 06:16 :00 No .4mg 0.4 mg, Sublingual , ONCE, 1 dose, 08/27/20 at 0100, FAWN [facility] aspirin chewable tablet 324 mg 07-10 14:00: 00 Yes 324mg 324 mg, Oral, DAILY, First dose on Fri07/10/20 at 0900, Until Discontinu ed, Routine [facility] iohexol (OMNIPAQUE 350 BULK-100 mL) injection 120 mL 07-10 05:15: 00 07-10 05:08 :00 No 120mL 120 mL, Intravenou s, ONCE, 1 dose, Fri07/10/20 at 0015, Routine [facility] codeine-gua ifenesin (ROBITUSSIN AC) 10-100 mg/5 mL solution 10 mL 07-10 04:30: 00 07-10 03:23 :00 No 10mL 10 mL, Oral, ONCE, 1 dose, 07/09/20 at 2330, [facility] LORazepam (ATIVAN) injection 1 mg 07-10 03:45: 00 07-10 03:14 :00 No 1mg 1 mg, Slow IV Push, ONCE, 1 dose, 07/09/20 at 2245, STAT [facility] morpHINE injection 4 mg 07-10 03:30: 00 07-10 03:16 :00 No 4mg 4 mg, Slow IV Push, ONCE, 1 dose, 07/09/20 at 2230, STAT [facility] pantoprazol e (PROTONIX) 40 mg in NaCl 0.9% (NS) 100 mL MINI-BAG 07-10 02:30: 00 07-10 01:48 :00 No 40mg 40 mg, IV Piggyback, ONCE, 1 dose, 07/09/20 at 2130, 100 mL [facility] ondansetron (ZOFRAN (PF)) injection 4 mg 07-10 02:00: 00 07-10 01:03 :00 No 4mg 4 mg, Slow IV Push, ONCE, 1 dose, 07/09/20 at 2100, FAWN [facility] morpHINE injection 4 mg 07-10 02:00: 00 07-10 01:03 :00 No 4mg 4 mg, Slow IV Push, ONCE, 1 dose, 07/09/20 at 2100, STAT [facility] nitroglycer in (NITROSTAT) sublingual tablet 0.4 mg 07-10 02:00: 07-10 01:02 :00 No .4mg 0.4 mg, Sublingual , ONCE, 1 dose, 07/09/20 at 2100, FAWN [facility] pantoprazol e (PROTONIX) 40 mg EC tablet 07-10 00:00: 00 08-29 00:00 :00 No [id number] 40mg Take 1 tablet by mouth daily. [facility] dicyclomine 20 mg tablet 07-10 00:00: 08-29 00:00 :00 No [id number] 20mg Take 1 tablet by mouth every 6 (six) hours as needed for Abdominal pain. [facility] benzonatate 200 mg capsule 07-10 00:00: 00 08-29 00:00 :00 No [id number] 200mg Take 1 capsule by mouth 3 (three) times daily as needed for Cough. [facility] ibuprofen 800 mg tablet 2018-10 00:00: 08-29 00:00 :00 No [id number] 800mg Take 1 tablet by mouth every 8 (eight) hours as needed for Pain (scale 4-6). [facility] cyclobenzap rine 5 mg tablet 03-30 00:00: 00 08-29 00:00 :00 No [id number] 5mg Take 1 tablet by mouth 3 (three) times daily as needed for Muscle Spasms. [facility] LORazepam (ATIVAN) 0.5 mg tablet 06-14 00:00: 00 08-29 00:00 :00 No .5mg Take 1 tablet by mouth 2 (two) times daily as needed for Anxiety. [facility] levothyroxi ne 125 mcg tablet 05-11 10:32: 30 Yes 125ug Take 125 mcg by mouth every morning. [facility] Vital Signs Vital Name Observation Time Observation Value Comments S ource Systolic blood pressure 2024-02-04 18:48:00 142 mm[Hg] [facility] Diastolic blood pressure 2024-02-04 18:48:00 97 mm[Hg] [facility] Heart rate 2024-02-04 18:48:00 84 /min [facility] Respiratory rate 2024-02-04 18:48:00 16 /min [facility] Oxygen saturation in Arterial blood by Pulse oximetry 2024-02-04 18:48:00 97 /min [facility] Body temperature 2024-02-04 15:46:00 36.67 Nano [facility] Body height 2024-02-04 15:46:00 172.7 cm [facility] Body weight 2024-02-04 15:46:00 111.131 kg [facility] BMI 2024-02-04 15:46:00 37.25 kg/m2 [facility] Heart rate 2023-12-28 09:23:00 84 /min [facility] Respiratory rate 2023-12-28 09:23:00 16 /min [facility] Oxygen saturation in Arterial blood by Pulse oximetry 2023-12-28 09:23:00 96 /min [facility] Systolic blood pressure 2023-12-28 09:00:00 131 mm[Hg] [facility] Diastolic blood pressure 2023-12-28 09:00:00 81 mm[Hg] [facility] Body temperature 2023-12-28 08:13:00 37 Nano [facility] Body height 2023-12-28 08:13:00 172.7 cm [facility] Body weight 2023-12-28 08:13:00 110.632 kg [facility] BMI 2023-12-28 08:13:00 37.08 kg/m2 [facility] Systolic blood pressure 2023-11-06 08:00:00 117 mm[Hg] [facility] Diastolic blood pressure 2023-11-06 08:00:00 75 mm[Hg] [facility] Heart rate 2023-11-06 08:00:00 80 /min [facility] Body temperature 2023-11-06 08:00:00 37 Nano [facility] Respiratory rate 2023-11-06 08:00:00 18 /min [facility] Oxygen saturation in Arterial blood by Pulse oximetry 2023-11-06 08:00:00 97 /min [facility] Body height 2023-11-06 05:50:00 172.7 cm [facility] Body weight 2023-11-06 05:50:00 113.309 kg [facility] BMI 2023-11-06 05:50:00 37.98 kg/m2 [facility] Systolic blood pressure 2023-11-01 10:00:00 142 mm[Hg] [facility] Diastolic blood pressure 2023-11-01 10:00:00 81 mm[Hg] [facility] Heart rate 2023-11-01 10:00:00 79 /min [facility] Body temperature 2023-11-01 10:00:00 37.17 Nano [facility] Respiratory rate 2023-11-01 10:00:00 16 /min [facility] Oxygen saturation in Arterial blood by Pulse oximetry 2023-11-01 10:00:00 94 /min [facility] Body height 2023-11-01 05:37:00 172.7 cm [facility] Body weight 2023-11-01 05:37:00 111.131 kg [facility] BMI 2023-11-01 05:37:00 37.25 kg/m2 [facility] Systolic blood pressure 2023-10-23 08:00:00 140 mm[Hg] [facility] Diastolic blood pressure 2023-10-23 08:00:00 88 mm[Hg] [facility] Heart rate 2023-10-23 08:00:00 89 /min [facility] Oxygen saturation in Arterial blood by Pulse oximetry 2023-10-23 08:00:00 94 /min [facility] Respiratory rate 2023-10-23 05:53:00 16 /min [facility] Body temperature 2023-10-23 05:45:00 36.72 Nano [facility] Body height 2023-10-23 05:45:00 172.7 cm [facility] Body weight 2023-10-23 05:45:00 113.399 kg [facility] BMI 2023-10-23 05:45:00 38.01 kg/m2 [facility] Systolic blood pressure 2023-09-26 08:00:00 159 mm[Hg] [facility] Diastolic blood pressure 2023-09-26 08:00:00 80 mm[Hg] [facility] Heart rate 2023-09-26 08:00:00 75 /min [facility] Respiratory rate 2023-09-26 08:00:00 20 /min [facility] Oxygen saturation in Arterial blood by Pulse oximetry 2023-09-26 08:00:00 94 /min [facility] Body temperature 2023-09-26 05:02:00 36.72 Nano [facility] Systolic blood pressure 2023-08-24 08:14:00 140 mm[Hg] [facility] Diastolic blood pressure 2023-08-24 08:14:00 73 mm[Hg] [facility] Heart rate 2023-08-24 08:14:00 75 /min [facility] Body temperature 2023-08-24 08:14:00 36.67 Nano [facility] Respiratory rate 2023-08-24 08:14:00 18 /min [facility] Oxygen saturation in Arterial blood by Pulse oximetry 2023-08-24 08:14:00 96 /min [facility] Body height 2023-08-24 03:41:00 172.7 cm [facility] Body weight 2023-08-24 03:41:00 113.399 kg [facility] BMI 2023-08-24 03:41:00 38.01 kg/m2 [facility] Systolic blood pressure 2023-07-07 10:53:00 140 mm[Hg] [facility] Diastolic blood pressure 2023-07-07 10:53:00 83 mm[Hg] [facility] Heart rate 2023-07-07 10:53:00 75 /min [facility] Respiratory rate 2023-07-07 10:53:00 16 /min [facility] Oxygen saturation in Arterial blood by Pulse oximetry 2023-07-07 10:53:00 97 /min [facility] Body temperature 2023-07-07 08:57:00 36.44 Nano [facility] Body height 2023-07-07 08:57:00 172.7 cm [facility] Body weight 2023-07-07 08:57:00 113.399 kg [facility] BMI 2023-07-07 08:57:00 38.01 kg/m2 [facility] Systolic blood pressure 2023-05-26 03:30:00 140 mm[Hg] [facility] Diastolic blood pressure 2023-05-26 03:30:00 78 mm[Hg] [facility] Heart rate 2023-05-26 03:30:00 80 /min [facility] Respiratory rate 2023-05-26 03:30:00 23 /min [facility] Oxygen saturation in Arterial blood by Pulse oximetry 2023-05-26 03:30:00 94 /min [facility] Body temperature 2023-05-26 03:00:00 36.78 Nano [facility] Body weight 2023-05-25 22:19:00 121.564 kg [facility] BMI 2023-05-25 22:19:00 40.75 kg/m2 [facility] Systolic blood pressure 2023-02-21 01:51:00 123 mm[Hg] [facility] Diastolic blood pressure 2023-02-21 01:51:00 74 mm[Hg] [facility] Heart rate 2023-02-20 23:03:00 95 /min [facility] Body temperature 2023-02-20 23:03:00 38.28 Nano [facility] Respiratory rate 2023-02-20 23:03:00 18 /min [facility] Body height 2023-02-20 23:03:00 172.7 cm [facility] Body weight 2023-02-20 23:03:00 121.564 kg [facility] BMI 2023-02-20 23:03:00 40.75 kg/m2 [facility] Oxygen saturation in Arterial blood by Pulse oximetry 2023-02-20 23:03:00 97 /min [facility] Systolic blood pressure 2022-12-29 10:00:00 142 mm[Hg] [facility] Diastolic blood pressure 2022-12-29 10:00:00 78 mm[Hg] [facility] Heart rate 2022-12-29 10:00:00 71 /min [facility] Oxygen saturation in Arterial blood by Pulse oximetry 2022-12-29 09:57:00 96 /min [facility] Body temperature 2022-12-29 06:35:00 36.89 Nano [facility] Respiratory rate 2022-12-29 06:35:00 20 /min [facility] Body height 2022-12-29 06:35:00 172.7 cm [facility] Body weight 2022-12-29 06:35:00 121.745 kg [facility] BMI 2022-12-29 06:35:00 40.81 kg/m2 [facility] Systolic blood pressure 2022-11-21 08:14:00 162 mm[Hg] [facility] Diastolic blood pressure 2022-11-21 08:14:00 101 mm[Hg] [facility] Heart rate 2022-11-21 08:09:00 92 /min [facility] Body temperature 2022-11-21 08:09:00 37.11 Nano [facility] Respiratory rate 2022-11-21 08:09:00 16 /min [facility] Body height 2022-11-21 08:09:00 172.7 cm [facility] Body weight 2022-11-21 08:09:00 115.667 kg [facility] BMI 2022-11-21 08:09:00 38.77 kg/m2 [facility] Oxygen saturation in Arterial blood by Pulse oximetry 2022-11-21 08:09:00 97 /min [facility] Systolic blood pressure 2022-10-29 07:34:00 167 mm[Hg] [facility] Diastolic blood pressure 2022-10-29 07:34:00 97 mm[Hg] [facility] Heart rate 2022-10-29 07:34:00 93 /min [facility] Body temperature 2022-10-29 07:34:00 37.39 Nano [facility] Respiratory rate 2022-10-29 07:34:00 20 /min [facility] Body height 2022-10-29 07:34:00 172.7 cm [facility] Body weight 2022-10-29 07:34:00 113.399 kg [facility] BMI 2022-10-29 07:34:00 38.01 kg/m2 [facility] Oxygen saturation in Arterial blood by Pulse oximetry 2022-10-29 07:34:00 97 /min [facility] Systolic blood pressure 2022-06-02 05:00:00 165 mm[Hg] [facility] Diastolic blood pressure 2022-06-02 05:00:00 119 mm[Hg] [facility] Heart rate 2022-06-02 05:00:00 74 /min [facility] Respiratory rate 2022-06-02 05:00:00 23 /min [facility] Oxygen saturation in Arterial blood by Pulse oximetry 2022-06-02 05:00:00 95 /min [facility] Body temperature 2022-06-02 04:41:00 36.67 Nano [facility] Systolic blood pressure 2022-05-28 18:36:21 147 mm[Hg] [facility] Diastolic blood pressure 2022-05-28 18:36:21 97 mm[Hg] [facility] Heart rate 2022-05-28 18:36:21 62 /min [facility] Respiratory rate 2022-05-28 18:36:21 18 /min [facility] Oxygen saturation in Arterial blood by Pulse oximetry 2022-05-28 18:36:21 96 /min [facility] Body temperature 2022-05-28 15:06:00 37.22 Nano [facility] Body height 2022-05-28 15:06:00 172.7 cm [facility] Body weight 2022-05-28 15:06:00 124.739 kg [facility] BMI 2022-05-28 15:06:00 41.81 kg/m2 [facility] Systolic blood pressure 2022-05-06 06:42:00 137 mm[Hg] [facility] Diastolic blood pressure 2022-05-06 06:42:00 90 mm[Hg] [facility] Heart rate 2022-05-06 06:42:00 81 /min [facility] Respiratory rate 2022-05-06 06:42:00 16 /min [facility] Oxygen saturation in Arterial blood by Pulse oximetry 2022-05-06 06:42:00 94 /min [facility] Body temperature 2022-05-06 03:30:00 36.78 Nano [facility] Body height 2022-05-06 03:30:00 172.7 cm [facility] Body weight 2022-05-06 03:30:00 117.935 kg [facility] BMI 2022-05-06 03:30:00 39.53 kg/m2 [facility] Systolic blood pressure 2022-05-01 13:30:00 147 mm[Hg] [facility] Diastolic blood pressure 2022-05-01 13:30:00 91 mm[Hg] [facility] Heart rate 2022-05-01 13:30:00 73 /min [facility] Respiratory rate 2022-05-01 13:30:00 17 /min [facility] Oxygen saturation in Arterial blood by Pulse oximetry 2022-05-01 13:30:00 95 /min [facility] Body temperature 2022-05-01 12:28:00 36.78 Nano [facility] Body weight 2022-05-01 12:28:00 121.564 kg [facility] BMI 2022-05-01 12:28:00 40.75 kg/m2 [facility] Systolic blood pressure 2022-02-08 07:00:00 133 mm[Hg] [facility] Diastolic blood pressure 2022-02-08 07:00:00 94 mm[Hg] [facility] Heart rate 2022-02-08 07:00:00 77 /min [facility] Respiratory rate 2022-02-08 07:00:00 21 /min [facility] Oxygen saturation in Arterial blood by Pulse oximetry 2022-02-08 07:00:00 95 /min [facility] Body temperature 2022-02-08 06:04:00 36.5 Nano [facility] Body height 2022-02-08 06:04:00 172.7 cm [facility] Body weight 2022-02-08 06:04:00 113.399 kg [facility] BMI 2022-02-08 06:04:00 38.01 kg/m2 [facility] Systolic blood pressure 2021-10-14 22:36:00 152 mm[Hg] [facility] Diastolic blood pressure 2021-10-14 22:36:00 87 mm[Hg] [facility] Heart rate 2021-10-14 22:36:00 95 /min [facility] Body temperature 2021-10-14 22:36:00 36.94 Nano [facility] Respiratory rate 2021-10-14 22:36:00 18 /min [facility] Body weight 2021-10-14 22:36:00 122.29 kg [facility] BMI 2021-10-14 22:36:00 40.99 kg/m2 [facility] Oxygen saturation in Arterial blood by Pulse oximetry 2021-10-14 22:36:00 97 /min [facility] Systolic blood pressure 2021-05-15 17:15:00 148 mm[Hg] [facility] Diastolic blood pressure 2021-05-15 17:15:00 84 mm[Hg] [facility] Heart rate 2021-05-15 17:15:00 99 /min [facility] Body temperature 2021-05-15 17:15:00 36.5 Nano [facility] Respiratory rate 2021-05-15 17:15:00 20 /min [facility] Body weight 2021-05-15 17:15:00 117.073 kg [facility] BMI 2021-05-15 17:15:00 39.24 kg/m2 [facility] Oxygen saturation in Arterial blood by Pulse oximetry 2021-05-15 17:15:00 97 /min [facility] Systolic blood pressure 2021-05-08 18:10:00 156 mm[Hg] [facility] Diastolic blood pressure 2021-05-08 18:10:00 95 mm[Hg] [facility] Heart rate 2021-05-08 18:10:00 99 /min [facility] Body temperature 2021-05-08 18:10:00 36.06 Nano [facility] Respiratory rate 2021-05-08 18:10:00 18 /min [facility] Body weight 2021-05-08 18:10:00 116.756 kg [facility] BMI 2021-05-08 18:10:00 39.14 kg/m2 [facility] Oxygen saturation in Arterial blood by Pulse oximetry 2021-05-08 18:10:00 96 /min [facility] Systolic blood pressure 2021-05-06 09:26:00 145 mm[Hg] [facility] Diastolic blood pressure 2021-05-06 09:26:00 93 mm[Hg] [facility] Heart rate 2021-05-06 09:26:00 79 /min [facility] Respiratory rate 2021-05-06 09:26:00 20 /min [facility] Oxygen saturation in Arterial blood by Pulse oximetry 2021-05-06 09:26:00 97 /min [facility] Body temperature 2021-05-06 07:56:00 37.11 Nano [facility] Body height 2021-05-06 07:56:00 172.7 cm [facility] Body weight 2021-05-06 07:56:00 118.434 kg [facility] BMI 2021-05-06 07:56:00 39.70 kg/m2 [facility] Systolic blood pressure 2021-03-15 06:19:00 127 mm[Hg] [facility] Diastolic blood pressure 2021-03-15 06:19:00 79 mm[Hg] [facility] Heart rate 2021-03-15 06:19:00 78 /min [facility] Respiratory rate 2021-03-15 06:19:00 23 /min [facility] Oxygen saturation in Arterial blood by Pulse oximetry 2021-03-15 06:19:00 96 /min [facility] Body temperature 2021-03-15 03:05:45 37 Nano [facility] Body weight 2021-03-15 02:46:00 114.76 kg [facility] BMI 2021-03-15 02:46:00 38.47 kg/m2 [facility] Systolic blood pressure 2021-03-15 06:19:00 127 mm[Hg] [facility] Diastolic blood pressure 2021-03-15 06:19:00 79 mm[Hg] [facility] Heart rate 2021-03-15 06:19:00 78 /min [facility] Respiratory rate 2021-03-15 06:19:00 23 /min [facility] Oxygen saturation in Arterial blood by Pulse oximetry 2021-03-15 06:19:00 96 /min [facility] Body temperature 2021-03-15 03:05:45 37 Nano [facility] Body weight 2021-03-15 02:46:00 114.76 kg [facility] BMI 2021-03-15 02:46:00 38.47 kg/m2 [facility] Systolic blood pressure 2020-09-09 00:10:00 124 mm[Hg] [facility] Diastolic blood pressure 2020-09-09 00:10:00 77 mm[Hg] [facility] Heart rate 2020-09-09 00:10:00 83 /min [facility] Respiratory rate 2020-09-09 00:10:00 16 /min [facility] Oxygen saturation in Arterial blood by Pulse oximetry 2020-09-09 00:10:00 97 /min [facility] Body temperature 2020-09-08 23:14:00 37.39 Nano [facility] Body weight 2020-09-08 22:49:00 107.956 kg [facility] BMI 2020-09-08 22:49:00 36.19 kg/m2 [facility] Systolic blood pressure 2020-09-09 00:10:00 124 mm[Hg] [facility] Diastolic blood pressure 2020-09-09 00:10:00 77 mm[Hg] [facility] Heart rate 2020-09-09 00:10:00 83 /min [facility] Respiratory rate 2020-09-09 00:10:00 16 /min [facility] Oxygen saturation in Arterial blood by Pulse oximetry 2020-09-09 00:10:00 97 /min [facility] Body temperature 2020-09-08 23:14:00 37.39 Nano [facility] Body weight 2020-09-08 22:49:00 107.956 kg [facility] BMI 2020-09-08 22:49:00 36.19 kg/m2 [facility] Systolic blood pressure 2020-09-06 19:30:00 115 mm[Hg] [facility] Diastolic blood pressure 2020-09-06 19:30:00 65 mm[Hg] [facility] Heart rate 2020-09-06 19:30:00 67 /min [facility] Body temperature 2020-09-06 19:30:00 36.83 Nano [facility] Respiratory rate 2020-09-06 19:30:00 19 /min [facility] Oxygen saturation in Arterial blood by Pulse oximetry 2020-09-06 19:30:00 99 /min [facility] Body weight 2020-09-06 15:41:00 107.956 kg [facility] BMI 2020-09-06 15:41:00 36.19 kg/m2 [facility] Systolic blood pressure 2020-09-06 19:30:00 115 mm[Hg] [facility] Diastolic blood pressure 2020-09-06 19:30:00 65 mm[Hg] [facility] Heart rate 2020-09-06 19:30:00 67 /min [facility] Body temperature 2020-09-06 19:30:00 36.83 Nano [facility] Respiratory rate 2020-09-06 19:30:00 19 /min [facility] Oxygen saturation in Arterial blood by Pulse oximetry 2020-09-06 19:30:00 99 /min [facility] Body weight 2020-09-06 15:41:00 107.956 kg [facility] BMI 2020-09-06 15:41:00 36.19 kg/m2 [facility] Systolic blood pressure 2020-08-30 13:11:00 136 mm[Hg] [facility] Diastolic blood pressure 2020-08-30 13:11:00 77 mm[Hg] [facility] Heart rate 2020-08-30 13:11:00 74 /min [facility] Body temperature 2020-08-30 13:11:00 36.5 Nano [facility] Respiratory rate 2020-08-30 13:11:00 18 /min [facility] Oxygen saturation in Arterial blood by Pulse oximetry 2020-08-30 13:11:00 96 /min [facility] Body weight 2020-08-30 09:00:00 107.956 kg [facility] BMI 2020-08-30 09:00:00 36.19 kg/m2 [facility] Body height 2020-08-27 07:49:00 172.7 cm [facility] Systolic blood pressure 2020-08-30 13:11:00 136 mm[Hg] [facility] Diastolic blood pressure 2020-08-30 13:11:00 77 mm[Hg] [facility] Heart rate 2020-08-30 13:11:00 74 /min [facility] Body temperature 2020-08-30 13:11:00 36.5 Nano [facility] Respiratory rate 2020-08-30 13:11:00 18 /min [facility] Oxygen saturation in Arterial blood by Pulse oximetry 2020-08-30 13:11:00 96 /min [facility] Body weight 2020-08-30 09:00:00 107.956 kg [facility] BMI 2020-08-30 09:00:00 36.19 kg/m2 [facility] Body height 2020-08-27 07:49:00 172.7 cm [facility] Systolic blood pressure 2020-07-10 05:30:00 123 mm[Hg] [facility] Diastolic blood pressure 2020-07-10 05:30:00 77 mm[Hg] [facility] Heart rate 2020-07-10 05:30:00 75 /min [facility] Respiratory rate 2020-07-10 05:30:00 19 /min [facility] Oxygen saturation in Arterial blood by Pulse oximetry 2020-07-10 05:30:00 97 /min [facility] Body temperature 2020-07-10 00:48:00 37.39 Nano [facility] Body height 2020-07-10 00:48:00 172.7 cm [facility] Body weight 2020-07-10 00:43:00 99.791 kg [facility] BMI 2020-07-10 00:43:00 33.45 kg/m2 [facility] Systolic blood pressure 2020-07-10 05:30:00 123 mm[Hg] [facility] Diastolic blood pressure 2020-07-10 05:30:00 77 mm[Hg] [facility] Heart rate 2020-07-10 05:30:00 75 /min [facility] Respiratory rate 2020-07-10 05:30:00 19 /min [facility] Oxygen saturation in Arterial blood by Pulse oximetry 2020-07-10 05:30:00 97 /min [facility] Body temperature 2020-07-10 00:48:00 37.39 Nano [facility] Body height 2020-07-10 00:48:00 172.7 cm [facility] Body weight 2020-07-10 00:43:00 99.791 kg [facility] BMI 2020-07-10 00:43:00 33.45 kg/m2 [facility] Procedures Procedure Date / Time Performed Performing Clinician Source URINALYSIS 2024-02-04 18:16:00 Babs [facility]am[facility] ABDOMEN PELVIS W CONTRAST 2024-02-04 16:52:00 Irina Bustamanteherine [facility] LIPASE 2024-02-04 16:00:00 Babs Bustamante [facility] COMP. METABOLIC PANEL ([id number]) 2024-02-04 16:00:00 Babs Bustamante [facility] CBC WITH DIFF 2024-02-04 16:00:00 Irina Bustamanteherine [facility] CONSENT/REFUSAL FOR DIAGNOSIS AND TREATMENT 2023-12-28 08:06:27 Doctor Unassigned, [place] [facility] EKG-12 LEAD 2023-11-06 08:26:13 Nidia Solano [facility] LIPASE 2023-11-06 06:15:00 Nidia Solano [facility] MAGNESIUM 2023-11-06 06:15:00 Sheila, K Haily [facility] COMP. METABOLIC PANEL ([id number]) 2023-11-06 06:15:00 Nidia Solano [facility] CBC WITH DIFF 2023-11-06 06:15:00 Nidia Solano [facility] URINALYSIS 2023-11-06 06:15:00 Nidia Solano [facility] CONSENT/REFUSAL FOR DIAGNOSIS AND TREATMENT 2023-11-06 05:40:44 Doctor Unassigned, [place] [facility] CT ABDOMEN PELVIS W CONTRAST 2023-11-01 08:32:40 Jose Francisco Walters [facility] LIPASE 2023-11-01 05:45:00 Jose Francisco Walters [facility] COMP. METABOLIC PANEL ([id number]) 2023-11-01 05:45:00 Jose Francisco Walters [facility] CBC WITH DIFF 2023-11-01 05:45:00 Jose Francisco Walters [facility] URINALYSIS 2023-11-01 05:45:00 Jose Francisco Walters [facility] POCT GLUCOSE (AUTOMATED) 2023-11-01 05:41:00 Lena Walters [facility] CONSENT/REFUSAL FOR DIAGNOSIS AND TREATMENT 2023-11-01 05:29:45 Doctor Unassigned, [place] [facility] CT ABDOMEN PELVIS W CONTRAST 2023-10-23 07:06:44 Chapito Contreras [facility] LIPASE 2023-10-23 05:50:00 Chapito Contreras [facility] COMP. METABOLIC PANEL ([id number]) 2023-10-23 05:50:00 Chapito Contreras [facility] CBC WITH DIFF 2023-10-23 05:50:00 Chapito Contreras [facility] URINALYSIS 2023-10-23 05:50:00 Chapito Contreras [facility] CONSENT/REFUSAL FOR DIAGNOSIS AND TREATMENT 2023-10-23 05:34:08 Doctor Unassigned, [place] [facility] URINALYSIS 2023-09-26 06:12:00 Jose BarrettLeena [facility] LIPASE 2023-09-26 05:12:00 Jose [facility] HEPATIC FUNCTION PANEL ([id number]) (ALB,T.PRO,BILI T,BU/BC,ALT,AST,ALK PHOS) 2023-09-26 05:12:00 [facility] (NA, K, CL, CO2, GLUCOSE, BUN, CREATININE, CA) 2023-09-26 05:12:00 [facility] CBC WITH DIFF 2023-09-26 05:12:00 [facility] NOTICE OF PRIVACY PRACTICES 2023-09-26 04:50:48 Doctor Unassigned, [place] [facility] CONSENT/REFUSAL FOR DIAGNOSIS AND TREATMENT 2023-09-26 04:50:08 Doctor Unassigned, [place] [facility] CT CHEST PULMONARY ANGIOGRAM 2023-08-24 08:02:29 Patrick Vergara [facility] XR CHEST 1 VW 2023-08-24 04:38:16 Patrick [facility]ergara [facility] TROPONIN I 2023-08-24 04:29:00 Patrick Vergara [facility] COMP. METABOLIC PANEL ([id number]) 2023-08-24 04:29:00 Patrick Vergara [facility] CBC WITH DIFF 2023-08-24 04:29:00 Patrick Vergara [facility] CONSENT/REFUSAL FOR DIAGNOSIS AND TREATMENT 2023-08-24 03:41:11 Doctor Unassigned, [place] [facility] LIPASE 2023-07-07 09:22:00 Chapito Contreras [facility] TROPONIN I 2023-07-07 09:22:00 Chapito Contreras [facility] COMP. METABOLIC PANEL ([id number]) 2023-07-07 09:22:00 Chapito Contreras [facility] CBC WITH DIFF 2023-07-07 09:22:00 Chapito [facility]ras [facility] 2023-07-07 09:22:00 Chapito Contreras [facility] CONSENT/REFUSAL FOR DIAGNOSIS AND TREATMENT 2023-07-07 08:49:51 Doctor Unassigned, [place] [facility] POCT GLUCOSE (AUTOMATED) 2023-05-26 02:17:00 Nidia Solano [facility] URINALYSIS 2023-05-26 01:24:00 Nidia Solanoe [facility] POCT GLUCOSE (AUTOMATED) 2023-05-26 01:22:00 Nidia Solano [facility] TROPONIN I 2023-05-26 00:54:00 Nidia Solano [facility] COVID-19 (ID NOW RAPID TESTING) 2023-05-26 00:54:00 Nidia Solano [facility] ASSIGNMENT OF BENEFITS 2023-05-26 00:29:59 Docto r Unassigned, [place] [facility] XR CHEST 1 VW 2023-05-25 22:41:21 Nidia Solano [facility] LIPASE 2023-05-25 22:33:00 Nidia Solano [facility] MAGNESIUM 2023-05-25 22:33:00 Nidia Solano [facility] TROPONIN I 2023-05-25 22:33:00 Nidia Solano [facility] COMP. METABOLIC PANEL ([id number]) 2023-05-25 22:33:00 Nidia Solano [facility] CBC WITH DIFF 2023-05-25 22:33:00 Nidia Solano [facility] N-TERMINAL PRO-BNP 2023-05-25 22:33:00 Nidia Solano [facility] CONSENT/REFUSAL FOR DIAGNOSIS AND TREATMENT 2023-05-25 22:07:05 Doctor Unassigned, [place] [facility] COVID-19 (ID NOW RAPID TESTING) 2023-02-20 23:30:00 Sofia Escobar [facility] CONSENT/REFUSAL FOR DIAGNOSIS AND TREATMENT 2023-02-20 22:54:00 Doctor Unassigned, [place] [facility] CT ABDOMEN PELVIS W CONTRAST 2022-12-29 08:28:18 Chapito Contreras [facility] LIPASE 2022-12-29 07:11:00 Ben Ctdania [facility] COMP. METABOLIC PANEL ([id number]) 2022-12-29 07:11:00 Chapito Contreras [facility] CBC WITH DIFF 2022-12-29 07:11:00 Chapito Contreras [facility] URINALYSIS 2022-12-29 07:11[facility] FOR [facility]AG[facility] AND TREATMENT 2022-12-29 06:24:27 Doctor Unassigned, [place] [facility] CONSENT/REFUSAL FOR DIAGNOSIS AND TREATMENT 2022-11-21 08:05:19 Doctor Unassigned, [place] [facility] RAPID STREP SCREEN FOR GROUP A 2022-10-29 07:36:00 Marie Morales [facility] CONSENT/REFUSAL FOR DIAGNOSIS AND TREATMENT 2022-10-29 07:23:03 Doctor Unassigned, [place] [facility] CONSENT/REFUSAL FOR DIAGNOSIS AND TREATMENT 2022-06-02 04:34:17 Doctor Unassigned, [place] [facility] FREE T4 2022-05-28 16:06:00 Saqib Clarke [facility] THYROID STIMULATING HORMONE 2022-05-28 16:06:00 Saqib Clarke [facility] COMP. METABOLIC PANEL ([id number]) 2022-05-28 16:06:00 Saqib Clarke [facility] CBC WITH DIFF 2022-05-28 16:06:00 Saqib Clarke [facility] FREE T3 2022-05-28 16:06:00 Saqib Clarke [facility] CONSENT/REFUSAL FOR DIAGNOSIS AND TREATMENT 2022-05-28 14:55:38 Doctor Unassigned, [place] [facility] CT ABDOMEN PELVIS W CONTRAST 2022-05-06 06:06:56 Nidia Solano [facility] LIPASE 2022-05-06 05:17:00 Nidia Solano [facility] MAGNESIUM 2022-05-06 05:17:00 Nidia Solano [facility] TROPONIN I 2022-05-06 05:17:00 Nidia Solano [facility] COMP. METABOLIC PANEL ([id number]) 2022-05-06 05:17:00 Nidia Solano [facility] CBC WITH DIFF 2022-05-06 05:17:00 Nidia Solano [facility] URINALYSIS 2022-05-06 05:17:00 Nidia Solano [facility] RAPID INFLUENZA A/B 2022-05-06 03:48:00 Nidia Solano [facility] COVID-19 (ID NOW RAPID TESTING) 2022-05-06 03:48:00 Nidia Solano [facility] CONSENT/REFUSAL FOR DIAGNOSIS AND TREATMENT 2022-05-06 03:22:49 Doctor Unassigned, [place] [facility] COMP. METABOLIC PANEL ([id number]) 2022-05-01 12:42:00 Saqib Clarke [facility] CBC WITH DIFF 2022-05-01 12:42:00 Singer Saqib [facility] CONSENT/REFUSAL FOR DIAGNOSIS AND TREATMENT 2022-05-01 12:23:44 Doctor Unassigned, [place] [facility] URINALYSIS 2022-02-08 06:27:00 Benjamin Ashford [facility] URINE DRUG (IMMUNOASSAY) - COMPREHENSIVE DRUG SCREEN W/O REFLEX 2022-02-08 06:27:00 Benjamin Ashford [facility] LIPASE 2022-02-08 06:15:00 Benjamin Ashford [facility] TROPONIN I 2022-02-08 06:15:00 Benjamin Ashford [facility] COMP. METABOLIC PANEL ([id number]) 2022-02-08 06:15:00 Benjamin Ashford [facility] ETHANOL 2022-02-08 06:15:00 Benjamin Ashford [facility] CBC WITH DIFF 2022-02-08 06:15:00 Benjamin Ashford [facility] PROTHROMBIN TIME / INR 2022-02-08 06:15:00 Jeremy Ashford [facility] ACTIVATED PARTIAL THRMPLAS ELAINE 2022-02-08 06:15:00 Benjamin Ashford [facility] N-TERMINAL PRO-BNP 2022-02-08 06:15:00 Benjamin Ashford [facility] NOTICE OF PRIVACY PRACTICES 2022-02-08 06:01:50 Doctor Unassigned, [place] [facility] CONSENT/REFUSAL FOR DIAGNOSIS AND TREATMENT 2022-02-08 05:59:20 Doctor Unassigned, [place] [facility] CT ABDOMEN PELVIS W CONTRAST 2021-10-15 00:40:39 Marie Mroales [facility] LIPASE 2021-10-15 00:26:00 Marie Morales [facility] TROPONIN I 2021-10-15 00:26:00 Marie Morales [facility] COMP. METABOLIC PANEL ([id number]) 2021-10-15 00:26:00 Marie Morales [facility] CBC WITH DIFF 2021-10-15 00:26:00 Marie Morales [facility] NOTICE OF PRIVACY PRACTICES 2021-10-14 22:18:20 Doctor Unassigned, [place] [facility] CONSENT/REFUSAL FOR DIAGNOSIS AND TREATMENT 2021-10-14 22:17:56 Doctor Unassigned, [place] [facility] CT ABDOMEN PELVIS W CONTRAST 2021-03-15 04:54:23 Chap[facility] [facility] COVID-19 (ID NOW RAPID TESTING) 2021-03-15 03:34:00 Chapito Contreras [facility] URINALYSIS 2021-03-15 03:16:00 Chapito Contreras [facility] COMP. METABOLIC PANEL (58870) 2021-03-15 03:11:00 Chapito Contreras [facility] CBC WITH DIFF 2021-03-15 03:11:00 Chapito Contreras [facility] CONSENT/REFUSAL FOR DIAGNOSIS AND TREATMENT 2021-03-15 02:38:38 Doctor Unassigned, [place] [facility] LIPASE 2020-09-08 23:14:00 Singer [facility] COMP. METABOLIC PANEL (39749) 2020-09-08 23:14:00 Singer [facility] CBC WITH DIFF 2020-09-08 23:14:00 [place] [facility] CONSENT/REFUSAL FOR DIAGNOSIS AND TREATMENT 2020-09-08 22:38:49 Doctor Unassigned, [place] [facility] CT ABDOMEN PELVIS W CONTRAST 2020-09-06 17:05:33 Nidia Solano [facility] LACTIC ACID WHOLE BLOOD 2020-09-06 16:31:00 Nidia Solano [facility] LIPASE 2020-09-06 16:11:00 Nidia Solano H[facility] MAGNESIUM 2020-09-06 16:11:00 Nidia Solano [facility] COMP. METABOLIC PANEL ([id number]) 2020-09-06 16:11:00 Nidia Solano Haily [facility] CBC WITH DIFF 2020-09-06 16:11:00 Nidia Solano Haily [facility] NOTICE OF PRIVACY PRACTICES 2020-09-06 15:30:39 Doctor Unassigned, [place] [facility] CONSENT/REFUSAL FOR DIAGNOSIS AND TREATMENT 2020-09-06 15:30:28 Doctor Unassigned, [place] [facility] COMP. METABOLIC PANEL (82135) 2020-08-30 08:39:00 Babs Bustamante [facility] CBC WITH DIFF 2020-08-30 08:39:00 Babs Bustamante [facility] US ABDOMEN COMPLETE 2020-08-28 18:11:06 Patrick No [facility] ECHO ROUTINE W/DOPPLER COLOR 2020-08-28 16:34:45 Oneal, [facility] HEPATIC FUNCTION PANEL (35073) (ALB,T.PRO,BILI T,BU/BC,ALT,AST,ALK PHOS) 2020-08-28 10:16:00 Favio Chang [facility] BASIC METABOLIC PANEL (NA, K, CL, CO2, GLUCOSE, BUN, CREATININE, CA) 2020-08-28 10:16:00 Oneal [facility] TROPONIN I 2020-08-27 18:11:00 Oneal [facility] POCT GLUCOSE (AUTOMATED) 2020-08-27 18:02:00 Clau No [facility] POCT GLUCOSE (AUTOMATED) 2020-08-27 13:49:00 Clau No [facility] TROPONIN I 2020-08-27 11:35:00 Oneal [facility] CT ABDOMEN PELVIS W WO CONTRAST 2020-08-27 07:38:49 Oneal [facility] COVID-19 (ID NOW RAPID TESTING) 2020-08-27 06:21:00 Dejon [facility] URINALYSIS 2020-08-27 06:20:00 Benjamin Ashford [facility] ADC / LCC - DRUG SCREEN TRIAGE 2020-08-27 06:20:00 Dejon [facility] XR CHEST 1 VW 2020-08-27 06:05:42 Benjamin Ashford [facility] LIPASE 2020-08-27 05:58:00 Benjamin Ashford [facility] TROPONIN I 2020-08-27 05:58:00 Benjamin Ashford [facility] THYROID STIMULATING HORMONE 2020-08-27 05:58:00 Oneal [facility] HEPATIC FUNCTION PANEL (09175) (ALB,T.PRO,BILI T,BU/BC,ALT,AST,ALK PHOS) 2020-08-27 05:58:00 [facility]OL[facility] (NA, K, CL, CO2, GLUCOSE, BUN, CREATININE, CA) 2020-08-27 05:58:00 Dejon [facility] LIPID PANEL (08931)(TOTAL CHOLESTEROL, TRIGLYCERIDES, HDL) 2020-08-27 05:58:00 Gricelda No [facility] ETHANOL 2020-08-27 05:58:00 Benjamin Ashford [facility] CBC WITH DIFF 2020-08-27 05:58:00 Benjamin Ashford [facility] PROTHROMBIN TIME / INR 2020-08-27 05:58:00 Jeremy Ashford [facility] ACTIVATED PARTIAL THRMPLAS ELAINE 2020-08-27 05:58:00 Benjamin Ashford [facility] EKG-12 LEAD 2020-08-27 05:54:03 Benjamin Ashford [facility] NOTICE OF PRIVACY PRACTICES 2020-08-27 05:44:26 Doctor Unassigned, [place] [facility] CONSENT/REFUSAL FOR DIAGNOSIS AND TREATMENT 2020-08-27 05:43:44 Doctor Unassigned, [place] [facility] CONSENT/REFUSAL FOR DIAGNOSIS AND TREATMENT 2020-08-27 05:43:43 Doctor Unassigned, [place] [facility] CT ABDOMEN PELVIS W CONTRAST 2020-07-10 05:12:21 Chapito Contreras [facility] TROPONIN I 2020-07-10 03:49:00 Chapito Contreras [facility] ADC / LCC - DRUG SCREEN TRIAGE 2020-07-10 03:13:00 Chapito Contreras [facility] XR CHEST 1 VW 2020-07-10 01:05:14 Chapito Contreras [facility] LIPASE 2020-07-10 00:55:00 Chapito Contreras [facility] TROPONIN I 2020-07-10 00:55:00 Chapito Contreras [facility] COMP. METABOLIC PANEL (44436) 2020-07-10 00:55:00 Chapito Contreras [facility] CBC WITH DIFF 2020-07-10 00:55:00 Chapito Contreras [facility] PROTHROMBIN TIME / INR 2020-07-10 00:55:00 Yesica Contreras [facility] D-DIMER 2020-07-10 00:55:00 Chapito Contreras [facility] COVID-19 (ID NOW RAPID TESTING) 2020-07-10 00:55:00 Chapito Contreras [facility] EKG-12 LEAD 2020-07-10 00:52:35 Chapito Contreras [facility] Plan of Care Planned Activity Planned Date Details Comments Source Encounters Start Date/Time End Date/Time Encounter Type Admission Type Attending Clinicians Care Facility Care Department Encounter ID Source 2024-02-04 10:45:00 2024-02-04 14:36:00 Emergency X BABS BUSTAMANTE [facility] ERT [id number] [facility] 2024-02-04 10:45:00 2024-02-04 14:36:00 Emergency Babs Bustamante [facility] 1.2.840.114 350.1.13.10 4.2.7.2.686 [id number] [facility] 2023-12-28 03:16:00 2023-12-28 04:32:00 Emergency X CHAPITO CONTRERAS [facility] ERT [id number] [facility] 2023-12-28 03:16:00 2023-12-28 04:32:00 Emergency Chapito Contreras [facility] 1.2.840.114 350.1.13.10 4.2.7.2.686 [id number] [facility] 2023-11-05 23:52:00 2023-11-06 02:37:00 Emergency X Nidia SOLANO [facility] ERT [id number] [facility] 2023-11-05 23:52:00 2023-11-06 02:37:00 Emergency SheilaNidia Haily [facility] 1.2.840.114 350.1.13.10 4.2.7.2.686 [id number] [facility] 2023-10-31 23:33:00 2023-11-01 04:19:00 Emergency X JOSE FRANCISCO WALTERS [facility] ERT [id number] [facility] 2023-10-31 23:33:00 2023-11-01 04:19:00 Emergency Jose Francisco Walters [facility] 1.2.840.114 350.1.13.10 4.2.7.2.686 [id number] [facility] 2023-10-22 23:39:00 2023-10-23 02:31:00 Emergency X CHAPITO CONTRERAS [facility] ERT [id number] [facility] 2023-10-22 23:39:00 2023-10-23 02:31:00 Emergency Chapito Contreras [facility] 1.2.840.114 350.1.13.10 4.2.7.2.686 [id number] [facility] 2023-09-25 23:04:00 2023-09-26 02:30:00 Emergency X LOREN TAM HEE-KWANG [facility] ERT [id number] [facility] 2023-09-25 23:04:00 2023-09-26 02:30:00 Emergency Loren Tam [facility] 1.2.840.114 350.1.13.10 4.2.7.2.686 [id number] [facility] 2023-08-25 00:00:00 2023-08-25 00:00:00 Patient Secure Msg Doctor Unassigned, [place] [facility] 1.2.840.114 350.1.13.10 4.2.7.2.686 [id number] [facility] 2023-08-23 22:43:00 2023-08-24 02:41:00 Emergency Patrick Vergara S [facility] 1.2.840.114 350.1.13.10 4.2.7.2.686 [id number] [facility] 2023-08-23 22:43:00 2023-08-24 02:41:00 Emergency X PATRICK VERGARA [facility] ERT [id number] [facility] 2023-07-07 03:51:00 2023-07-07 05:56:00 Emergency X CHAPITO CONTRERAS [facility] ERT [id number] [facility] 2023-07-07 03:51:00 2023-07-07 05:56:00 Emergency Chapito Contreras [facility] 1.2840.114 350.1.13.10 4.2.7.2.686 [id number] [facility] 2023-05-25 17:20:00 2023-05-25 22:37:00 Emergency X Nidia SOLANO [facility] ERT [id number] [facility] 2023-05-25 17:20:00 2023-05-25 22:37:00 Emergency Nidia Solano [facility] 1.2840.114 350.1.13.10 4.2.7.2.686 [id number] [facility] 2023-02-20 18:06:00 2023-02-20 21:03:00 Emergency X VALERIE SOFIA HUTCHINS [facility] ERT [id number] [facility] 2023-02-20 18:06:00 2023-02-20 21:03:00 Emergency Sofia Escobar [facility] 1.2840.114 350.1.13.10 4.2.7.2.686 [id number] [facility] 2023-02-20 00:00:00 2023-02-20 00:00:00 Orders Only Doctor Unassigned, [place] [facility] 1.2840.114 350.1.13.10 4.2.7.2.686 [id number] [facility] 2022-12-29 00:24:00 2022-12-29 05:29:00 Emergency X CHAPITO CONTRERAS [facility] ERT [id number] [facility] 2022-12-29 00:24:00 2022-12-29 05:29:00 Emergency Chapito Contreras [facility] 1.2.840.114 350.1.13.10 4.2.7.2.686 [id number] [facility] 2022-11-21 02:14:00 2022-11-21 03:04:00 Emergency X VERGARAPATRICK [facility] ERT [id number] [facility] 2022-11-21 02:14:00 2022-11-21 03:04:00 Emergency Vergara Patrick [facility] 1.2840.114 350.1.13.10 4.2.7.2.686 [id number] [facility] 2022-10-29 01:37:00 2022-10-29 02:25:00 Emergency X MARIE MORALES [facility] ERT [id number] [facility] 2022-10-29 01:37:00 2022-10-29 02:25:00 Emergency Marie Morales [facility] 1.840.114 350.1.13.10 4.2.7.2.686 [id number] [facility] 2022-06-01 23:34:00 2022-06-02 00:39:00 Emergency X SAQIB CLARKE [facility] ERT [id number] [facility] 2022-06-01 23:34:00 2022-06-02 00:39:00 Emergency Saqib Clarke [facility] 1.840.114 350.1.13.10 4.2.7.2.686 [id number] [facility] 2022-05-28 11:00:00 2022-05-28 13:39:00 Emergency X SAQIB CLARKE [facility] ERT [id number] [facility] 2022-05-28 11:00:00 2022-05-28 13:39:00 Emergency Saqib Clarke [facility] 1.2.840.114 350.1.13.10 4.2.7.2.686 [id number] [facility] 2022-05-05 22:33:00 2022-05-06 01:49:00 Emergency X Nidia SOLANO [facility] ERT [id number] [facility] 2022-05-05 22:33:00 2022-05-06 01:49:00 [facility] 1.2.840.114 350.1.13.10 4.2.7.2.686 [id number] [facility] 2022-05-01 07:33:00 2022-05-01 09:07:00 Emergency X SAQIB CLARKE [facility] ERT [id number] [facility] 2022-05-01 07:33:00 2022-05-01 09:07:00 Emergency Saqib Clarke [facility] 1.2.840.114 350.1.13.10 4.2.7.2.686 [id number] [facility] 2022-02-08 01:00:00 2022-02-08 03:03:00 Emergency X BENJAMIN ASHFORD [facility] ERT [id number] [facility] 2022-02-08 01:00:00 2022-02-08 03:03:00 Emergency DejonBenjamin [facility] 1.2.840.114 350.1.13.10 4.2.7.2.686 [id number] [id number] [facility] 2021-10-14 16:40:00 2021-10-14 19:30:00 Emergency X MARIE MORALES [facility] ERT [id number] [facility] 2021-10-14 16:40:00 2021-10-14 19:30:00 Emergency Marie Morales [facility] 1.2.840.114 350.1.13.10 4.2.7.2.686 [id number] [facility] 2021-05-15 12:11:58 2021-05-15 23:59:00 [facility] 1.2.840.114 350.1.13.10 4.2.7.2.686 [id number] [facility] 2021-05-15 12:30:00 2021-05-15 12:30:00 Outpatient R GEOFF CARDONA [facility] [id number] [facility] 2021-05-08 12:30:00 2021-05-08 23:59:00 Hospital Encounter Kiki Mathur [facility] 1.2.840.114 350.1.13.10 4.2.7.2.686 [id number] [facility] 2021-05-08 12:30:00 2021-05-08 12:30:00 Outpatient R KIKI MATHUR [facility] [id number] [facility] 2021-05-06 03:01:00 2021-05-06 04:28:00 Emergency Saqib Clarke [facility] 1.2.840.114 350.1.13.10 4.2.7.2.686 [id number] [facility] 2021-05-06 03:01:00 2021-05-06 04:28:00 Emergency X SAQIB CLARKE [facility] ERT [id number] [facility] 2021-03-14 21:49:00 2021-03-15 01:22:00 Emergency Chapito Contreras [facility] 1.2.840.114 350.1.13.10 4.2.7.2.686 [id number] [facility] 2021-03-14 21:49:00 2021-03-15 01:22:00 Emergency Chapito Contreras [facility] 1.2.840.114 350.1.13.10 4.2.7.2.686 [id number] 2021-03-14 21:49:00 2021-03-14 21:49:00 Emergency X CHAPITO CONTRERAS [facility] ERT [id number] [facility] 2020-09-08 16:52:00 2020-09-08 18:13:00 Emergency Saqib Clarke [facility] 1.2.840.114 350.1.13.10 4.2.7.2.686 [id number] [facility] 2020-09-08 16:52:00 2020-09-08 18:13:00 Emergency Saqib Clarke [facility] 1.2.840.114 350.1.13.10 4.2.7.2.686 [id number] 2020-09-08 16:52:00 2020-09-08 16:52:00 Emergency SAQIB MEDRANO [facility] ERT [id number] [facility] 2020-09-06 09:52:00 2020-09-06 13:38:00 Emergency Nidia Solano [facility] 1.2.840.114 350.1.13.10 4.2.7.2.686 [id number] [facility] 2020-09-06 09:52:00 2020-09-06 13:38:00 Emergency Nidia Solano [facility] 1.2.840.114 350.1.13.10 4.2.7.2.686 [id number] 2020-09-06 09:52:00 2020-09-06 09:52:00 Emergency X [facility] ERT [id number] [facility] 2020-09-06 00:00:00 2020-09-06 00:00:00 Orders Only Doctor Unassigned, [place] [facility] 1.2.840.114 350.1.13.10 4.2.7.2.686 [id number] [facility] 2020-09-06 00:00:00 2020-09-06 00:00:00 Orders Only Doctor Unassigned, [place] [facility] 1.2.840.114 350.1.13.10 4.2.7.2.686 [id number] 2020-08-26 23:45:00 2020-08-30 08:05:00 [facility].2.840.114 350.1.13.10 4.2.7.2.686 [id number] [facility] 2020-08-26 23:45:00 2020-08-30 08:05:00 Emergency [facility] 1.2.840.114 350.1.13.10 4.2.7.2.686 [id number] 2020-08-26 23:43:00 2020-08-26 23:43:00 Emergency X [facility] ERT [id number] [facility] 2020-07-09 19:41:00 2020-07-10 00:40:00 Emergency [facility] 1.2.840.114 350.1.13.10 4.2.7.2.686 [id number] [facility] 2020-07-09 19:41:00 2020-07-10 00:40:00 Emergency [facility] 1.2.840.114 350.1.13.10 4.2.7.2.686 [id number] 2020-07-09 19:41:00 2020-07-09 19:41:00 Emergency X CHAPITO CONTRERAS [facility] ERT [id number] [facility] Results Test Description Test Time Test Comments Results Result Comments Source CT ABDOMEN PELVIS W CONTRAST 2024-01 17:26:[address] Abdomen and Pelvis with intravenous contrast. CLINICAL HISTORY: RLQ Abdominal pain. DOSE: Up-to-date CT equipment and radiation dose reduction techniques wereemployed. CTDIvol: ?12.63+12.9 mGy. DLP: 829.51+882 mGy-cm. TECHNIQUE : Contiguous axial imaging from the level of the lung basesthrough the pubic symphysis were performed after the uncomplicatedadministration of nonionic contrast material. ?Coronal and sagittalreconstructions were obtained. Auto mA and/or iterative reconstruction wereused to reduce radiation dose. FINDINGS: ? Lower lungs: Clear. No pleural effusion or pericardial effusion. Nodefinite evidence of hiatal hernia. Liver, Gallbladder and Spleen: S/P cholecystectomy. Liver measures 18.68 cmand showed mild diffuse fatty infiltration. Spleen measures 11.8 x 5 cm.Biliary ducts and the pancreatic duct appear of normal size. Peritoneum: ?No free air or free fluid. No lymphadenopathy. Pancreas and Adrenals: ?Unremarkable pancreas and right adrenal gland. Leftadrenal gland showed nodular hypertrophy, particularly of its lateral limb,unchanged since October 2022 study. Kidneys and Ureters: ?No visible calculi in the renal collecting systems. No hydroureter or hydronephrosis. Vessels: Minimal atherosclerosis in the lower abdominal aorta and rightcommon iliac artery. Retroperitoneum: No abnormal fluid or lymphadenopathy. Bowel: ?No acute findings. Normal appendix is visualized. Radiopaquematerial in the ascending colon and sigmoid colon could be unabsorbedorally ingested medications. Bladder and Reproductive Organs: ?Central zone prostate calcifications.Slightly thickened bladder wall is noted. Bones: ?No acute findings. Separate bony ossicle of lateral rightacetabulum could be a developmental variation. Soft tissues: Small, bilateral fat-containing indirect type inguinalhernia. CONCLUSION:1. No acute intra-abdominal findings. S/P cholecystectomy.2. Normal appendix.3. Mild hepatomegaly with suspicion of mild diffuse hepatic steatosis.4. Slightly thickened urinary bladder pike could be due to incompleteluminal distention. Please correlate clinically for any signs and symptomsof cystitis. [facility] [id number] 17:02:35* Test Item Value Reference Range Interpretation Comme nts NA (test code = 9423500517) 139 mmol/L 135-145 K (test code = 0110280538) 4.4 mmol/L 3.5-5.0 CL (test code = 6788251222) 101 mmol/L 98-108 CO2 TOTAL (test code = 2274723998) 31 mmol/L 23-31 AGAP (test code = 6474459557) 7 2-16 BUN (test code = 9857441473) 12 mg/dL 7-23 GLUCOSE (test code = 0741348697) 100 mg/dL 70-110 CREATININE (test code = 2160-0) 0.61 mg/dL 0.60-1.25 TOTAL BILI (test code = 0610882915) 0.5 mg/dL 0.1-1.1 CALCIUM (test code = 6330567680) 9.8 mg/dL 8.6-10.6 T PROTEIN (test code = 3529426330) 8.4 g/dL 6.3-8.2 H ALBUMIN (test code = 2632772977) 4.7 g/dL 3.5-5.0 ALK PHOS (test code = 8223733983) 84 U/L 34-122 ALTv (test code = 1742-6) 23 U/L 5-50 AST(SGOT) (test code = 0229588644) 25 U/L 13-40 eGFR (test code = 24155-8) 120.0 mL/min/1.73m2 CKD-EPI eGFR (2020). Assuming creatinine has been stable day-to-day for at least three months, the eGFR indicates Category G1 (>= 90 mL/min/1.73 m2) Lab Interpretation (test code = 72948-7) [facility]normal [facility] [id number] 17:01:54* Test Item Value Reference Range Interpretation Comme nts LIPASE (test code = 0187332472) 42 U/L 0-220 Lab Interpretation (test cod e = 97748-7) Normal [facility]24-[facility]18 07:16:16* Test Item Value Reference Range Interpretation Comme nts MAGNESIUM (test code = 9403595787) 2.2 mg/dL 1.7-2.4 Lab Interpretation (test cod e = 27612-3) Normal [facility] (05467)2023-11-06 07:16:15* Test Item Value Reference Range Interpretation Comme nts NA (test code = 6125070963) 138 mmol/L 135-145 K (test code = 2347999442) 3.5 mmol/L 3.5-5.0 CL (test code = 9609638292) 106 mmol/L 98-108 CO2 TOTAL (test code = 3769482266) 23 mmol/L 23-31 AGAP (test code = 9911225698) 9 2-16 BUN (test code = 2325879275) 18 mg/dL 7-23 GLUCOSE (test code = 4297810957) 110 mg/dL 70-110 CREATININE (test code = 2521521351) 0.73 mg/dL 0.60-1.25 TOTAL BILI (test code = 9763325391) 0.4 mg/dL 0.1-1.1 CALCIUM (test code = 1852291241) 9.4 mg/dL 8.6-10.6 T PROTEIN (test code = 0723324015) 8.5 g/dL 6.3-8.2 H ALBUMIN (test code = 0155998884) 4.8 g/dL 3.5-5.0 ALK PHOS (test code = 0703650089) 78 U/L 34-122 ALTv (test code = 1742-6) 42 U/L 5-50 AST(SGOT) (test code = 8350363995) 43 U/L 13-40 H eGFR (test code = 24651-2) 113.6 mL/min/1.73m2 CKD-EPI eGFR (2020). Assuming creatinine has been stable day-to-day for at least three months, the eGFR indicates Category G1 (>= 90 mL/min/1.73 m2) Lab Interpretation (test code = 86865-1) Abnormal [facility] 07:16:15* Test Item Value Reference Range Interpretation Comme nts LIPASE (test code = 2802364548) 118 U/L 0-220 Lab Interpretation (test cod e = 38931-5) Normal [facility] with [id number] 06:49:12* Test Item Value Reference Range Interpretation [...] 33.5 g/dL 31.2-35.0 RDW-SD (test code = 79583-8) 46.4 fL 38.5-51.6 RDW-CV (test code = 788-0) 13.7 % 12.1-15.4 PLT (test code = 777-3) 323 See_Comment [Automated messa ge] The system which generated this result transmitted reference range: 150 - 328 10*3/?L. The reference range was not used to interpret this result as normal/abnormal. MPV (test code = 97823-2) 9.8 fL 9.8-13.0 NRBC/100 WBC (test code = 8362736342) 0.0 See_Comment [Automated [employer] ssage] The system which generated this result transmitted reference range: 0.0 - 10.0 /100 WBCs. The reference range was not used to interpret this result as normal/abnormal. NRBC x10^3 (test code = 2860051504) See_Comment [Automated [employer]] The system which generated this result transmitted reference range: 10*3/?L. The reference range was not used to interpret this result as normal/abnormal. GRAN MAT (NEUT) % (test code = 770-8) 56.1 % IMM GRAN % (test code = 6426162569) 0.50 % LYMPH % (test code = 736-9) 34.8 % MONO % (test code = 5905-5) 6.3 % EOS % (test code = 713-8) 1.4 % BASO % (test code = 706-2) 0.9 % GRAN MAT x10^3(ANC) (test code = 2683242005) 6.38 10*3/uL 1.99-6.95 IMM GRAN x10^3 (test code = 7209665313) 0.06 10*3/uL 0.00-0.06 LYMPH x10^3 (test code = 731-0) 3.95 10*3/uL 1.09-3.23 H MONO x10^3 (test code = 742-7) 0.71 10*3/uL 0.36-1.02 EOS x10^3 (test code = 711-2) 0.16 10*3/uL 0.06-0.53 BASO x10^3 (test code = 704-7) 0.10 10*3/uL 0.01-0.09 H Lab Interpretation (test code = 66614-3) [facility] W [id number] 09:00:37Ordering physician: JOSE FRANCISCO WALTERS Indication: Acute [...] abdomen andpelvis demonstrate no osseous destructive lesion. [facility] Metabolic [id number] 06:29:13* Test Item Value Reference Range Interpretation Comme nts NA (test code = 7804887200) 138 mmol/L 135-145 K (test code = 7245310264) 3.8 mmol/L 3.5-5.0 CL (test code = 6840284546) 106 mmol/L 98-108 CO2 TOTAL (test code = 9287682942) 21 mmol/L 23-31 L AGAP (test code = 1135452241) 11 2-16 BUN (test code = 1725346406) 13 mg/dL 7-23 GLUCOSE (test code = 6189600631) 113 mg/dL 70-110 H CREATININE (test code = 5267483569) 0.63 mg/dL 0.60-1.25 TOTAL BILI (test code = 1722902858) 0.7 mg/dL 0.1-1.1 CALCIUM (test code = 6597871312) 9.6 mg/dL 8.6-10.6 T PROTEIN (test code = 5708146754) 9.0 g/dL 6.3-8.2 H ALBUMIN (test code = 4603246357) 5.0 g/dL 3.5-5.0 ALK PHOS (test code = 4740047372) 73 U/L 34-122 ALTv (test code = 1742-6) 33 U/L 5-50 AST(SGOT) (test code = 5104354687) 33 U/L 13-40 eGFR (test code = 62748-0) 118.8 mL/min/1.73m2 CKD-EPI eGFR (2020). Assuming creatinine has been stable day-to-day for at least three months, the eGFR indicates Category G1 (>= 90 mL/min/1.73 m2) Lab Interpretation (test code = 94315-0) [facility] [id number] 06:29:13* Test Item Value Reference Range Interpretation Comme nts LIPASE (test code = 8278247918) 89 U/L 0-220 Lab Interpretation (test cod e = 16627-0) Normal [facility] with Cyfuaupbayqw5464-61-42 06:17:56* Test Item Value Reference Range Interpretation Comme nts WBC (test code = 6690-2) 11.54 See_Comment H [Automated [employer] ge] The system which generated this result transmitted reference range: 4.20 - 10.70 10*3/?L. The reference range was not used to interpret this result as normal/abnormal. RBC (test code = 789-8) 5.24 See_Comment [Automated [employer] ge] The system which generated this result [...] 33.9 g/dL 31.2-35.0 RDW-SD (test code = 19641-9) 46.6 fL 38.5-51.6 RDW-CV (test code = 788-0) 14.0 % 12.1-15.4 PLT (test code = 777-3) 312 See_Comment [Automated [employer] ge] The system which generated this result transmitted reference range: 150 - 328 10*3/?L. The reference range was not used to interpret this result as normal/abnormal. MPV (test code = 32341-1) 9.7 fL 9.8-13.0 L NRBC/100 WBC (test code = 8741914111) 0.0 See_Comment [Automated [employer] ssage] The system which generated this result transmitted reference range: 0.0 - 10.0 /100 WBCs. The reference range was not used to interpret this result as normal/abnormal. NRBC x10^3 (test code = 8358270337) See_Comment [Automated [employer] ge] The system which generated this result transmitted reference range: 10*3/?L. The reference range was not used to interpret this result as normal/abnormal. GRAN MAT (NEUT) % (test code = 770-8) 54.9 % IMM GRAN % (test code = 6565123877) 0.30 % LYMPH % (test code = 736-9) 36.0 % MONO % (test code = 5905-5) 6.3 % EOS % (test code = 713-8) 1.6 % BASO % (test code = 706-2) 0.9 % GRAN MAT x10^3(ANC) (test code = 9395834362) 6.35 10*3/uL 1.99-6.95 IMM GRAN x10^3 (test code = 0868754853) 0.03 10*3/uL 0.00-0.06 LYMPH x10^3 (test code = 731-0) 4.15 10*3/uL 1.09-3.23 H MONO x10^3 (test code = 742-7) 0.73 10*3/uL 0.36-1.02 EOS x10^3 (test code = 711-2) 0.18 10*3/uL 0.06-0.53 BASO x10^3 (test code = 704-7) 0.10 10*3/uL 0.01-0.09 H Lab Interpretation (test code = 48834-9) Abnormal [facility] GLUCOSE (AUTOMATED)2023-11-01 05:42:28* Test Item Value Reference Range Interpretation Comme nts POCT GLU (test code = 8391572234) 110 mg/dL 70-110 Lab Interpretation (test cod e = 02197-1) Normal [facility] ABDOMEN PELVIS W [id number] 07:44:05Ordering physician: CHAPITO CONTRERAS Indication: Acute right [...] lesion. 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 The reference range was not used to interpret this result as normal/abnormal. MPV (test code = 10618-5) 9.3 fL 9.8-13.0 L NRBC/100 WBC (test code = 6784351518) 0.0 See_Comment [Automated me ssage] The system which generated this result transmitted reference range: 0.0 - 10.0 /100 WBCs. The reference range was not used to interpret this result as normal/abnormal. NRBC x10^3 (test code = 7939191777) See_Comment [Automated messa ge] The system which generated this result transmitted reference range: 10*3/?L. The reference range was not used to interpret this result as normal/abnormal. SEG % (test code = 61387-1) 49 % 33-76 LYMPH % (test code = 36770-9) 40 % 14-54 MONO % (test code = 00783-9) 4 % 0-4 EOS % (test code = 64805-5) 7 % 0-3 H ANC (test code = 753-4) 5.81 10*3/uL 1.99-6.95 Lab Interpretation (test code = 97541-8) [facility]normal [facility] Met[facility] Ibpad7599-87-93 06:32:13* Test Item Value Reference Range Interpretation Comme nts NA (test code = 3186397735) 140 mmol/L 135-145 K (test code = 4930636245) 3.7 mmol/L 3.5-5.0 CL (test code = 6041347341) 105 mmol/L 98-108 CO2 TOTAL (test code = 0405789908) 23 mmol/L 23-31 AGAP (test code = 8441127158) 12 2-16 BUN (test code = 7621892987) 15 mg/dL 7-23 GLUCOSE (test code = 1211968827) 126 mg/dL 70-110 H CREATININE (test code = 9848217164) 0.89 mg/dL 0.60-1.25 TOTAL BILI (test code = 3237404630) 0.6 mg/dL 0.1-1.1 CALCIUM (test code = 5581351090) 9.5 mg/dL 8.6-10.6 T PROTEIN (test code = 2330074600) 8.6 g/dL 6.3-8.2 H ALBUMIN (test code = 2906335229) 4.7 g/dL 3.5-5.0 ALK PHOS (test code = 4785680631) 84 U/L 34-122 ALTv (test code = 1742-6) 38 U/L 5-50 AST(SGOT) (test code = 4556774134) 33 U/L 13-40 eGFR (test code = 81900-6) 107.0 mL/min/1.73m2 CKD-EPI eGFR (2020). Assuming creatinine has been stable day-to-day for at least three months, the eGFR indicates Category G1 (>= 90 mL/min/1.73 m2) Lab Interpretation (test code = 74376-3) [facility]normal [facility], Lbmya6804-17-34 06:31:52* Test Item Value Reference Range Interpretation Comme nts LIPASE (test code = 6704525537) 80 U/L 0-220 Lab Interpretation (test cod e = 57823-1) Normal [facility] MET[facility]OLIC PANEL (NA, K, CL, CO2, GLUCOSE, BUN, CREATININE, CA)2023-09-26 06:00:26* Test Item Value Reference Range Interpretation Comme nts NA (test code = 2620322629) 139 mmol/L 135-145 K (test code = 1043516633) 3.9 mmol/L 3.5-5.0 CL (test code = 2797089930) 104 mmol/L 98-108 CO2 TOTAL (test code = 5720184551) 25 mmol/L 23-31 AGAP (test code = 7843854003) 10 2-16 BUN (test code = 3762642389) 14 mg/dL 7-23 GLUCOSE (test code = 3754975280) 109 mg/dL 70-110 CREATININE (test code = 8848518949) 0.77 mg/dL 0.60-1.25 CALCIUM (test code = 2101990703) 10.4 mg/dL 8.6-10.6 eGFR (test code = 37370-8) 112.5 mL/min/1.73m2 CKD-EPI eGFR (20 ). Assuming creatinine has been stable day-to-day for at least three months, the eGFR indicates Category G1 (>= 90 mL/min/1.73 m2) [facility] (09662) (ALB,T.PRO,BILI T,BU/BC,ALT,AST,ALK PHOS)2023-09-26 06:00:26* Test Item Value Reference Range Interpretation Comme nts TOTAL BILI (test code = 8067535141) 0.6 mg/dL 0.1-1.1 BILI UNCON (test code = 8385804973) 0.4 mg/dL 0.1-1.1 BILI CONJ (test code = 8705920273) 0.0 mg/dL 0.0-0.3 T PROTEIN (test code = 9616876419) 8.6 g/dL 6.3-8.2 H ALBUMIN (test code = 9359471381) 4.7 g/dL 3.5-5.0 ALK PHOS (test code = 0366290752) 91 U/L 34-122 ALTv (test code = 1742-6) 40 U/L 5-50 AST(SGOT) (test code = 7132039606) 27 U/L 13-40 Lab Interpretation (test cod e = 16033-5) Abnormal [facility]2023-[facility]-08 06:00:25* Test Item Value Reference Range Interpretation Comme nts LIPASE (test code = 0071259508) 73 U/L 0-220 Lab Interpretation (test cod e = 62197-7) Normal [facility] WITH [id number] 05:50:26* Test Item Value Reference Range Interpretation Comme nts WBC (test code = 6690-2) 10.08 See_Comment [Automated [employer]] The system which generated this result transmitted reference range: 4.20 - 10.70 10*3/?L. The reference range was not used to interpret this result as normal/abnormal. RBC (test code = 789-8) 5.24 See_Comment [Automated [employer]] The system which generated this result [...] 33.8 g/dL 31.2-35.0 RDW-SD (test code = 55634-8) 44.0 fL 38.5-51.6 RDW-CV (test code = 788-0) 13.1 % 12.1-15.4 PLT (test code = 777-3) 317 See_Comment [Automated messa ge] The system which generated this result transmitted reference range: 150 - 328 10*3/?L. The reference range was not used to interpret this result as normal/abnormal. MPV (test code = 31146-0) 9.6 fL 9.8-13.0 L NRBC/100 WBC (test code = 0962363941) 0.0 See_Comment [Automated [employer] ssage] The system which generated this result transmitted reference range: 0.0 - 10.0 /100 WBCs. The reference range was not used to interpret this result as normal/abnormal. NRBC x10^3 (test code = 1280751573) See_Comment [Automated messa ge] The system which generated this result transmitted reference range: 10*3/?L. The reference range was not used to interpret this result as normal/abnormal. GRAN MAT (NEUT) % (test code = 770-8) 50.9 % IMM GRAN % (test code = 6722214715) 0.30 % LYMPH % (test code = 736-9) 38.3 % MONO % (test code = 5905-5) 7.5 % EOS % (test code = 713-8) 2.2 % BASO % (test code = 706-2) 0.8 % GRAN MAT x10^3(ANC) (test code = 3602896276) 5.13 10*3/uL 1.99-6.95 IMM GRAN x10^3 (test code = 2438667985) 0.03 10*3/uL 0.00-0.06 LYMPH x10^3 (test code = 731-0) 3.86 10*3/uL 1.09-3.23 H MONO x10^3 (test code = 742-7) 0.76 10*3/uL 0.36-1.02 EOS x10^3 (test code = 711-2) 0.22 10*3/uL 0.06-0.53 BASO x10^3 (test code = 704-7) 0.08 10*3/uL 0.01-0.09 Lab Interpretation (test code = 84433-1) Abnormal [facility] ArlingtonTROPONIN [id number] 05:30:49* Test Item Value Reference Range Interpretation Comme nts TROPONIN I (test code = 0284318617) 0.001 ng/mL <=0.034 LAURIE (test code = [...] of biotin. Lab Interpretation (test code = 40723-5) Normal [facility]. METABOLIC PANEL (02766)2023-08-24 05:19:05* Test Item Value Reference Range Interpretation Comme nts NA (test code = 8367476164) 138 mmol/L 135-145 K (test code = 8441031620) 4.3 mmol/L 3.5-5.0 CL (test code = 4871083179) 100 mmol/L 98-108 CO2 TOTAL (test code = 0907933001) 25 mmol/L 23-31 AGAP (test code = 4277317704) 13 2-16 BUN (test code = 1631851486) 15 mg/dL 7-23 GLUCOSE (test code = 8491436359) 198 mg/dL 70-110 H CREATININE (test code = 1931846174) 0.86 mg/dL 0.60-1.25 TOTAL BILI (test code = 6440105137) 0.3 mg/dL 0.1-1.1 CALCIUM (test code = 5359024823) 10.3 mg/dL 8.6-10.6 T PROTEIN (test code = 5777307435) 8.6 g/dL 6.3-8.2 H ALBUMIN (test code = 7604208207) 4.5 g/dL 3.5-5.0 ALK PHOS (test code = 4867767561) 94 U/L 34-122 ALTv (test code = 1742-6) 44 U/L 5-50 AST(SGOT) (test code = 2604104309) 28 U/L 13-40 eGFR (test code = 78031-5) 108.8 mL/min/1.73m2 CKD-EPI eGFR (2020). Assuming creatinine has been stable day-to-day for at least three months, the eGFR indicates Category G1 (>= 90 mL/min/1.73 m2) Lab Interpretation (test code = 63875-8) Abnormal [facility] WITH [id number] 05:01:26* Test Item Value Reference Range Interpretation Comme nts WBC (test code = 6690-2) 10.38 See_Comment [Automated [employer]] The system which generated this result transmitted reference range: 4.20 - 10.70 10*3/?L. The reference range was not used to interpret this result as normal/abnormal. RBC (test code = 789-8) 5.08 See_Comment [Automated [employer]] The system which generated this result transmitted [...] 33.5 g/dL 31.2-35.0 RDW-SD (test code = 72652-6) 43.8 fL 38.5-51.6 RDW-CV (test code = 788-0) 13.0 % 12.1-15.4 PLT (test code = 777-3) 298 See_Comment [Automated messa ge] The system which generated this result transmitted reference range: 150 - 328 10*3/?L. The reference range was not used to interpret this result as normal/abnormal. MPV (test code = 50271-6) 10.0 fL 9.8-13.0 NRBC/100 WBC (test code = 0802200560) 0.0 See_Comment [Automated me ssage] The system which generated this result transmitted reference range: 0.0 - 10.0 /100 WBCs. The reference range was not used to interpret this result as normal/abnormal. NRBC x10^3 (test code = 3090907179) See_Comment [Automated messa ge] The system which generated this result transmitted reference range: 10*3/?L. The reference range was not used to interpret this result as normal/abnormal. GRAN MAT (NEUT) % (test code = 770-8) 52.4 % IMM GRAN % (test code = 2829821950) 0.30 % LYMPH % (test code = 736-9) 36.6 % MONO % (test code = 5905-5) 7.2 % EOS % (test code = 713-8) 2.6 % BASO % (test code = 706-2) 0.9 % GRAN MAT x10^3(ANC) (test code = 3692787501) 5.44 10*3/uL 1.99-6.95 IMM GRAN x10^3 (test code = 4348939956) 0.03 10*3/uL 0.00-0.06 LYMPH x10^3 (test code = 731-0) 3.80 10*3/uL 1.09-3.23 H MONO x10^3 (test code = 742-7) 0.75 10*3/uL 0.36-1.02 EOS x10^3 (test code = 711-2) 0.27 10*3/uL 0.06-0.53 BASO x10^3 (test code = 704-7) 0.09 10*3/uL 0.01-0.09 Lab Interpretation (test code = 23393-0) Abnormal [facility] GLUCOSE (AUTOMATED)2023-05-26 02:18:34* Test Item Value Reference Range Interpretation Comme nts POCT GLU (test code = 0930631733) 173 mg/dL 70-110 H Lab Interpretation (test cod e = 03522-8) Abnormal [facility] GLUCOSE(AGE >30DAYS)2023-05-26 02:17:00* Test Item Value Reference Range Interpretation Comme nts POCT Glu (age>30days) (test code = 3342) 173 mg/dL 70-110 A Lab Interpretation (test cod e = 80528-6) Abnormal [facility] [id number] 01:41:57* Test Item Value Reference Range Interpretation Comme nts TROPONIN I (test code = 7868644918) 0.008 ng/mL <=0.034 LAURIE (test code = [...] of biotin. Lab Interpretation (test code = 41978-5) Normal [facility] GLUCOSE (AUTOMATED)2023-05-26 01:23:43* Test Item Value Reference Range Interpretation Comme nts POCT GLU (test code = 6416708796) 185 mg/dL 70-110 H Lab Interpretation (test cod e = 76988-8) Abnormal [facility] [id number] 00:40:36* Test Item Value Reference Range Interpretation Comme nts NT-proBNP (test code = 74248-5) <=125 Lab Interpretation (test cod e = 46861-9) Normal [facility] [id number] 00:06:55* Test Item Value Reference Range Interpretation Comme nts TROPONIN I (test code = 9872521434) 0.003 ng/mL <=0.034 LAURIE (test code = [...] of biotin. Lab Interpretation (test code = 28263-1) Normal [facility]2023-08-06 23:56:12* Test Item Value Reference Range Interpretation Comme nts MAGNESIUM (test code = 2594230301) 2.0 mg/dL 1.7-2.4 Lab Interpretation (test cod e = 92941-7) Normal [facility] METABOLIC PANEL (46519)2023-05-25 23:55:52* Test Item Value Reference Range Interpretation Comme nts NA (test code = 5226113277) 138 mmol/L 135-145 K (test code = 5040183354) 4.3 mmol/L 3.5-5.0 CL (test code = 7123930687) 103 mmol/L 98-108 CO2 TOTAL (test code = 6207763830) 22 mmol/L 23-31 L AGAP (test code = 6635308962) 13 2-16 BUN (test code = 9198651466) 22 mg/dL 7-23 GLUCOSE (test code = 4039400429) 274 mg/dL 70-110 H CREATININE (test code = 0373540443) 0.79 mg/dL 0.60-1.25 TOTAL BILI (test code = 0296353581) 0.6 mg/dL 0.1-1.1 CALCIUM (test code = 1838212609) 9.2 mg/dL 8.6-10.6 T PROTEIN (test code = 7523412632) 8.4 g/dL 6.3-8.2 H ALBUMIN (test code = 4375003823) 4.5 g/dL 3.5-5.0 ALK PHOS (test code = 0121901692) 88 U/L 34-122 ALTv (test code = 1742-6) 48 U/L 5-50 AST(SGOT) (test code = 7338876633) 37 U/L 13-40 eGFR (test code = 2404225900) 106.1 mL/min/1.73m2 LAURIE (test code = LAURIE) [...] imaging tests). Lab Interpretation (test code = 34411-8) Abnormal [facility]2023-[facility] 23:55:32* Test Item Value Reference Range Interpretation Comme nts LIPASE (test code = 8358752904) 154 U/L 0-220 Lab Interpretation (test cod e = 53717-0) Normal [facility] WITH [id number] 23:33:34* Test Item Value Reference Range Interpretation Comme nts WBC (test code = 6690-2) 9.32 See_Comment [Automated [employer]] The system which generated this result transmitted reference range: 4.20 - 10.70 10*3/?L. The reference range was not used to interpret this result as normal/abnormal. RBC (test code = 789-8) 4.89 See_Comment [Automated [employer]] The system which generated this result [...] 33.7 g/dL 31.2-35.0 RDW-SD (test code = 41976-9) 45.4 fL 38.5-51.6 RDW-CV (test code = 788-0) 13.4 % 12.1-15.4 PLT (test code = 777-3) 286 See_Comment [Automated [employer]] The system which generated this result transmitted reference range: 150 - 328 10*3/?L. The reference range was not used to interpret this result as normal/abnormal. MPV (test code = 25346-0) 10.2 fL 9.8-13.0 NRBC/100 WBC (test code = 5271335376) 0.0 See_Comment [Automated [employer] ssage] The system which generated this result transmitted reference range: 0.0 - 10.0 /100 WBCs. The reference range was not used to interpret this result as normal/abnormal. NRBC x10^3 (test code = 6034519614) See_Comment [Automated [employer] ssage] The system which generated this result transmitted reference range: 10*3/?L. The reference range was not used to interpret this result as normal/abnormal. GRAN MAT (NEUT) % (test code = 770-8) 57.3 % IMM GRAN % (test code = 4633582058) 0.40 % LYMPH % (test code = 736-9) 32.6 % MONO % (test code = 5905-5) 6.8 % EOS % (test code = 713-8) 1.9 % BASO % (test code = 706-2) 1.0 % GRAN MAT x10^3(ANC) (test code = 1494203892) 5.34 10*3/uL 1.99-6.95 IMM GRAN x10^3 (test code = 1276015077) 0.04 10*3/uL 0.00-0.06 LYMPH x10^3 (test code = 731-0) 3.04 10*3/uL 1.09-3.23 MONO x10^3 (test code = 742-7) 0.63 10*3/uL 0.36-1.02 EOS x10^3 (test code = 711-2) 0.18 10*3/uL 0.06-0.53 BASO x10^3 (test code = 704-7) 0.09 10*3/uL 0.01-0.09 [facility] with Eiasmyvwciib8437-14-24 07:42:13* Test Item Value Reference Range Interpretation Comme nts WBC (test code = 6690-2) 10.82 See_Comment H [Automated [employer]] The system which generated this result transmitted reference range: 4.20 - 10.70 10*3/?L. The reference range was not used to interpret this result as normal/abnormal. RBC (test code = 789-8) 4.96 See_Comment [Automated [employer]] The system which generated this result [...] 33.3 g/dL 31.2-35.0 RDW-SD (test code = 04121-7) 44.4 fL 38.5-51.6 RDW-CV (test code = 788-0) 13.6 % 12.1-15.4 PLT (test code = 777-3) 187 See_Comment [Automated messa ge] The system which generated this result transmitted reference range: 150 - 328 10*3/?L. The reference range was not used to interpret this result as normal/abnormal. MPV (test code = 40026-1) 10.4 fL 9.8-13.0 NRBC/100 WBC (test code = 3489038324) 0.0 See_Comment [Automated me ssage] The system which generated this result transmitted reference range: 0.0 - 10.0 /100 WBCs. The reference range was not used to interpret this result as normal/abnormal. NRBC x10^3 (test code = 2221610964) See_Comment [Automated messa ge] The system which generated this result transmitted reference range: 10*3/?L. The reference range was not used to interpret this result as normal/abnormal. GRAN MAT (NEUT) % (test code = 770-8) 55.0 % IMM GRAN % (test code = 5990759239) 0.50 % LYMPH % (test code = 736-9) 34.8 % MONO % (test code = 5905-5) 6.5 % EOS % (test code = 713-8) 2.5 % BASO % (test code = 706-2) 0.7 % GRAN MAT x10^3(ANC) (test code = 4824950300) 5.95 10*3/uL 1.99-6.95 IMM GRAN x10^3 (test code = 2933622661) 0.05 10*3/uL 0.00-0.06 LYMPH x10^3 (test code = 731-0) 3.77 10*3/uL 1.09-3.23 H MONO x10^3 (test code = 742-7) 0.70 10*3/uL 0.36-1.02 EOS x10^3 (test code = 711-2) 0.27 10*3/uL 0.06-0.53 BASO x10^3 (test code = 704-7) 0.08 10*3/uL 0.01-0.09 Lab Interpretation (test code = 47004-3) [facility]normal [facility] Rzgdt4742-20-40 07:32:47* Test Item Value Reference Range Interpretation Comme nts NA (test code = 6276930639) 136 mmol/L 135-145 K (test code = 4918828198) 4.2 mmol/L 3.5-5.0 CL (test code = 1129099314) 104 mmol/L 98-108 CO2 TOTAL (test code = 2544537215) 21 mmol/L 23-31 L AGAP (test code = 2525140229) 11 2-16 BUN (test code = 0786172439) 17 mg/dL 7-23 GLUCOSE (test code = 7308435793) 125 mg/dL 70-110 H CREATININE (test code = 2634307579) 0.63 mg/dL 0.60-1.25 TOTAL BILI (test code = 9876208790) 0.3 mg/dL 0.1-1.1 CALCIUM (test code = 9090042361) 9.3 mg/dL 8.6-10.6 T PROTEIN (test code = 4225519948) 7.8 g/dL 6.3-8.2 ALBUMIN (test code = 8303781758) 4.5 g/dL 3.5-5.0 ALK PHOS (test code = 4292153545) 97 U/L 34-122 ALTv (test code = 1742-6) 42 U/L 5-50 AST(SGOT) (test code = 0729723427) 34 U/L 13-40 eGFR (test code = 6413602284) 137.7 mL/min/1.73m2 LAURIE (test code = LAURIE) [...] imaging tests). Lab Interpretation (test code = 79848-5) [facility]normal [facility], [id number] 07:31:52* Test Item Value Reference Range Interpretation Comme nts LIPASE (test code = 9369223076) 73 U/L 0-220 Lab Interpretation (test cod e = 68817-7) Normal [facility] STIMULATING MHSDDBE4893-58-20 18:17:21 * Test Item Value Reference Range Interpretation Comme nts TSH (test code = 9839303657) See_Comment H [Automated [employer]] The system which generated this result transmitted reference range: 0.45 - 4.70 mIU/L. The reference range was not used to interpret this result as normal/abnormal. Lab Interpretation (test code = 81638-4) Abnormal [facility] [id number] 16:53:41* Test Item Value Reference Range Interpretation Comme nts FREE T4 (test code = 2433319716) See_Comment L [Automated [employer]] The system which generated this result transmitted reference range: 0.78 - 2.20 ng/dL:. The reference range was not used to interpret this result as normal/abnormal. Lab Interpretation (test code = 33094-5) Abnormal [facility] [id number] 16:53:04* Test Item Value Reference Range Interpretation Comme nts FREE T3 (test code = 7162030152) 1.50 pg/mL 2.77-5.27 L Lab Interpretation (test cod e = 63845-8) [facility]normal [facility] METABOLIC PANEL (21444)2022-05-28 16:37:03* Test Item Value Reference Range Interpretation Comme nts NA (test code = 1934186692) 138 mmol/L 135-145 K (test code = 5716711042) 4.4 mmol/L 3.5-5 CL (test code = 3976125685) 101 mmol/L 98-108 CO2 TOTAL (test code = 5281974789) 27 mmol/L 23-31 AGAP (test code = 0636543471) 2-16 BUN (test code = 7765247738) 14 mg/dL 7-23 GLUCOSE (test code = 1036681071) 102 mg/dL 70-110 CREATININE (test code = 2001667170) 0.82 mg/dL 0.6-1.25 TOTAL BILI (test code = 1855189204) 0.5 mg/dL 0.1-1.1 CALCIUM (test code = 4114979011) 9.3 mg/dL 8.6-10.6 T PROTEIN (test code = 3465783554) 8.3 g/dL 6.3-8.2 H ALBUMIN (test code = 9303288942) 4.8 g/dL 3.5-5 ALK PHOS (test code = 3055622275) 75 U/L 34-122 ALTv (test code = 1742-6) 56 U/L 5-50 H AST(SGOT) (test code = 4325220162) 42 U/L 13-40 H eGFR (test code = 8124611591) mL/min/1.73m2 LAURIE (test code = LAURIE) Association [...] imaging tests). Lab Interpretation (test code = 79970-5) Abnormal [facility] WITH [id number] 16:25:38* Test Item Value Reference Range Interpretation Comme nts WBC (test code = 6690-2) See_Comment [Automated [employer]] The system which generated this result transmitted reference range: 4.20 - 10.70 10*3/?L. The reference range was not used to interpret this result as normal/abnormal. RBC (test code = 789-8) See_Comment [[employer]] The system which generated this result transmitted [...] 33.0 g/dL 31.2-35 RDW-SD (test code = 32135-1) 48.1 fL 38.5-51.6 RDW-CV (test code = 788-0) 14.2 % 12.1-15.4 PLT (test code = 777-3) See_Comment [Automated messa ge] The system which generated this result transmitted reference range: 150 - 328 10*3/?L. The reference range was not used to interpret this result as normal/abnormal. MPV (test code = 09491-4) 9.5 fL 9.8-13 L NRBC/100 WBC (test code = 4116628330) See_Comment [Automated [employer] ssage] The system which generated this result transmitted reference range: 0.0 - 10.0 /100 WBCs. The reference range was not used to interpret this result as normal/abnormal. NRBC x10^3 (test code = 0059154068) See_Comment [Automated messa ge] The system which generated this result transmitted reference range: 10*3/?L. The reference range was not used to interpret this result as normal/abnormal. GRAN MAT (NEUT) % (test code = 770-8) 56.3 % IMM GRAN % (test code = 3936822392) 0.70 % LYMPH % (test code = 736-9) 32.8 % MONO % (test code = 5905-5) 6.2 % EOS % (test code = 713-8) 2.7 % BASO % (test code = 706-2) 1.3 % GRAN MAT x10^3(ANC) (test code = 6786700951) 4.87 10*3/uL 1.99-6.95 IMM GRAN x10^3 (test code = 2470074229) 0.06 10*3/uL 0-0.06 LYMPH x10^3 (test code = 731-0) 2.84 10*3/uL 1.09-3.23 MONO x10^3 (test code = 742-7) 0.54 10*3/uL 0.36-1.02 EOS x10^3 (test code = 711-2) 0.23 10*3/uL 0.06-0.53 BASO x10^3 (test code = 704-7) 0.11 10*3/uL 0.01-0.09 H Lab Interpretation (test code = 24922-8) [facility] Test Item Value Reference Range Interpretation Comme nts MAGNESIUM (test code = 4693085030) 1.8 mg/dL 1.7-2.4 Lab Interpretation (test cod e = 74380-3) [facility] [id number] 06:00:52* Test Item Value Reference Range Interpretation Comments TROPONIN I (test code = 3508901047) 0.002 ng/mL See_Comment [Automated message] The system [...] of biotin. Lab Interpretation (test code = 90151-7) Normal [facility] MET[facility]OLIC PANEL (20691)2022-05-06 05:49:11* Test Item Value Reference Range Interpretation Comme nts NA (test code = 8098304704) 136 mmol/L 135-145 K (test code = 1706605926) 4.4 mmol/L 3.5-5 CL (test code = 9126125395) 100 mmol/L 98-108 CO2 TOTAL (test code = 1682208157) 23 mmol/L 23-31 AGAP (test code = 2827106155) 2-16 BUN (test code = 3648062824) 16 mg/dL 7-23 GLUCOSE (test code = 1840668998) 116 mg/dL 70-110 H CREATININE (test code = 9332079183) 0.81 mg/dL 0.6-1.25 TOTAL BILI (test code = 5428864464) 0.6 mg/dL 0.1-1.1 CALCIUM (test code = 2656843837) 10.3 mg/dL 8.6-10.6 T PROTEIN (test code = 3726453112) 9.2 g/dL 6.3-8.2 H ALBUMIN (test code = 5522043491) 5.3 g/dL 3.5-5 H ALK PHOS (test code = 7556885326) 89 U/L 34-122 ALTv (test code = 1742-6) 44 U/L 5-50 AST(SGOT) (test code = 5093905470) 36 U/L 13-40 eGFR (test code = 0448391856) mL/min/1.73m2 LAURIE (test code = LAURIE) Association [...] imaging tests). Lab Interpretation (test code = 48034-1) Abnormal [facility] 05:48:51* Test Item Value Reference Range Interpretation Comme nts LIPASE (test code = 9081375138) 67 U/L 0-220 Lab Interpretation (test cod e = 45231-9) Normal [facility] WITH [id number] 05:36:33* Test Item Value Reference Range Interpretation Comme nts WBC (test code = 6690-2) See_Comment H [Automated messa ge] The system [...] 34.1 g/dL 31.2-35 RDW-SD (test code = 63094-0) 45.9 fL 38.5-51.6 RDW-CV (test code = 788-0) 13.9 % 12.1-15.4 PLT (test code = 777-3) See_Comment [Automated messa ge] The system which generated this result transmitted reference range: 150 - 328 10*3/?L. The reference range was not used to interpret this result as normal/abnormal. MPV (test code = 24901-5) 9.5 fL 9.8-13 L NRBC/100 WBC (test code = 6315036827) See_Comment [Automated me ssage] The system which generated this result transmitted reference range: 0.0 - 10.0 /100 WBCs. The reference range was not used to interpret this result as normal/abnormal. NRBC x10^3 (test code = 4479019306) See_Comment [Automated messa ge] The system which generated this result transmitted reference range: 10*3/?L. The reference range was not used to interpret this result as normal/abnormal. GRAN MAT (NEUT) % (test code = 770-8) 60.3 % IMM GRAN % (test code = 8042676233) 0.80 % LYMPH % (test code = 736-9) 27.6 % MONO % (test code = 5905-5) 6.8 % EOS % (test code = 713-8) 3.5 % BASO % (test code = 706-2) 1.0 % GRAN MAT x10^3(ANC) (test code = 5022019230) 6.95 10*3/uL 1.99-6.95 IMM GRAN x10^3 (test code = 0272311238) 0.09 10*3/uL 0-0.06 H LYMPH x10^3 (test code = 731-0) 3.19 10*3/uL 1.09-3.23 MONO x10^3 (test code = 742-7) 0.79 10*3/uL 0.36-1.02 EOS x10^3 (test code = 711-2) 0.40 10*3/uL 0.06-0.53 BASO x10^3 (test code = 704-7) 0.12 10*3/uL 0.01-0.09 H Lab Interpretation (test code = 53969-9) Abnormal [facility]. METABOLIC PANEL (10455)2022-05-01 13:28:01* Test Item Value Reference Range Interpretation Comme nts NA (test code = 1127986283) 139 mmol/L 135-145 K (test code = 9165410204) 4.7 mmol/L 3.5-5 CL (test code = 3840876592) 104 mmol/L 98-108 CO2 TOTAL (test code = 6026308393) 23 mmol/L 23-31 AGAP (test code = 8727586587) 2-16 BUN (test code = 2761163504) 14 mg/dL 7-23 GLUCOSE (test code = 6745491001) 128 mg/dL 70-110 H CREATININE (test code = 5727790087) 0.62 mg/dL 0.6-1.25 TOTAL BILI (test code = 3829229034) 0.4 mg/dL 0.1-1.1 CALCIUM (test code = 0832514610) 9.2 mg/dL 8.6-10.6 T PROTEIN (test code = 0116057422) 8.1 g/dL 6.3-8.2 ALBUMIN (test code = 3075928764) 4.6 g/dL 3.5-5 ALK PHOS (test code = 1909584754) 92 U/L 34-122 ALTv (test code = 1742-6) 43 U/L 5-50 AST(SGOT) (test code = 0805791369) 30 U/L 13-40 eGFR (test code = 2092482739) mL/min/1.73m2 LAURIE (test code = LAURIE) Association [...] imaging tests). Lab Interpretation (test code = 23467-9) Abnormal [facility] WITH [id number] 13:20:02* Test Item Value Reference Range Interpretation [...] 32.8 g/dL 31.2-35 RDW-SD (test code = 14803-1) 47.5 fL 38.5-51.6 RDW-CV (test code = 788-0) 14.1 % 12.1-15.4 PLT (test code = 777-3) See_Comment [Automated messa ge] The system which generated this result transmitted reference range: 150 - 328 10*3/?L. The reference range was not used to interpret this result as normal/abnormal. MPV (test code = 44989-8) 9.3 fL 9.8-13 L NRBC/100 WBC (test code = 2190320348) See_Comment [Automated [employer] ssage] The system which generated this result transmitted reference range: 0.0 - 10.0 /100 WBCs. The reference range was not used to interpret this result as normal/abnormal. NRBC x10^3 (test code = 9198378186) See_Comment [Automated messa ge] The system which generated this result transmitted reference range: 10*3/?L. The reference range was not used to interpret this result as normal/abnormal. GRAN MAT (NEUT) % (test code = 770-8) 58.9 % IMM GRAN % (test code = 3256200328) 0.60 % LYMPH % (test code = 736-9) 29.2 % MONO % (test code = 5905-5) 6.8 % EOS % (test code = 713-8) 3.5 % BASO % (test code = 706-2) 1.0 % GRAN MAT x10^3(ANC) (test code = 4781080788) 5.80 10*3/uL 1.99-6.95 IMM GRAN x10^3 (test code = 6595684797) 0.06 10*3/uL 0-0.06 LYMPH x10^3 (test code = 731-0) 2.87 10*3/uL 1.09-3.23 MONO x10^3 (test code = 742-7) 0.67 10*3/uL 0.36-1.02 EOS x10^3 (test code = 711-2) 0.34 10*3/uL 0.06-0.53 BASO x10^3 (test code = 704-7) 0.10 10*3/uL 0.01-0.09 H Lab Interpretation (test code = 93465-7) Abnormal [facility] [id number] 07:04:38* Test Item Value Reference Range Interpretation Comments TROPONIN I (test code = 1909706637) 0.002 ng/mL See_Comment [Automated message] The system [...] of biotin. Lab Interpretation (test code = 24841-6) Normal [facility]N-TERMINAL [id number] 07:00:14* Test Item Value Reference Range Interpretation Comme nts NT-proBNP (test code = 9211360476) 25 pg/mL See_Comment [Automated message] The system which generated this result transmitted reference range: <=125. The reference range was not used to interpret this result as normal/abnormal. LAURIE (test code = LAURIE) Biotin has been reported to cause a negative bias, interpret results relative to patient's use of biotin. Lab Interpretation (test code = 12099-7) Normal [facility]ETHANOL2022-04-22 06:53:02* Test Item Value Reference Range Interpretation Comme nts ALCOHOL (test code = 1567687997) <10 mg/dL LAURIE (test code = LAURIE) <10 [id number] Toxic>100 Depression of ROLLER SKATE ASSEMBLER>400 Fatalities Reported [facility]22-[facility]-22 06:50:57* Test Item Value Reference Range Interpretation Comme nts LIPASE (test code = 8768090233) 65 U/L 0-220 Lab Interpretation (test cod e = 04817-8) Normal [facility] METABOLIC PANEL (63777)2022-02-08 06:50:57* Test Item Value Reference Range Interpretation Comme nts NA (test code = 7670998334) 138 mmol/L 135-145 K (test code = 1766479485) 4.3 mmol/L 3.5-5.0 CL (test code = 2768665839) 103 mmol/L 98-108 CO2 TOTAL (test code = 6878860040) 23 mmol/L 23-31 AGAP (test code = 9927186527) 2-16 BUN (test code = 3832457037) 14 mg/dL 7-23 GLUCOSE (test code = 1398001554) 142 mg/dL 70-110 H CREATININE (test code = 9362535367) 0.60 mg/dL 0.60-1.25 TOTAL BILI (test code = 2852723369) 0.5 mg/dL 0.1-1.1 CALCIUM (test code = 5640157304) 9.1 mg/dL 8.6-10.6 T PROTEIN (test code = 1996746615) 7.9 g/dL 6.3-8.2 ALBUMIN (test code = 9808733911) 4.5 g/dL 3.5-5.0 ALK PHOS (test code = 4307743103) 81 U/L 34-122 ALTv (test code = 1742-6) 28 U/L 5-50 AST(SGOT) (test code = 3398997868) 24 U/L 13-40 eGFR (test code = 7207616365) mL/min/1.73m2 LAURIE (test code = LAURIE) Association [...] imaging tests). Lab Interpretation (test code = 36277-1) Abnormal [facility]ACTIV[facility] PARTIAL THRMPLAS [id number] 06:47:31* Test Item Value Reference Range Interpretation Comme nts APTT Patient (test code = 3173-2) See_Comment [Automated message] The system which generated this result transmitted reference range: 23 - 38 Seconds. The reference range was not used to interpret this result as normal/abnormal. LAURIE (test code = LAURIE) The [facility] patient population mean normal value for aPTT is 30 seconds. Lab Interpretation (test code = 88472-9) Normal [facility] ArlingtonPROTHROMBIN TIME / [id number] 06:45:33* Test Item Value Reference Range Interpretation Comme nts PROTIME PATIENT (test code = 5964-2) See_Comment [Automated messa ge] The system which generated this result transmitted reference range: 12.0 - 14.7 Seconds. The reference range was not used to interpret this result as normal/abnormal. INR (test code = 6301-6) Normal INR <1.1; Warfarin Therapeutic range 2.0 to 3.0 or 2.5 to 3.5, depending upon the indications. Lab Interpretation (test code = 12838-8) Normal [facility]CBC WITH [id number] 06:37:36* Test Item Value Reference Range Interpretation [...] 33.4 g/dL 31.2-35.0 RDW-SD (test code = 19619-5) 42.7 fL 38.5-51.6 RDW-CV (test code = 788-0) 13.1 % 12.1-15.4 PLT (test code = 777-3) See_Comment [Automated messa ge] The system which generated this result transmitted reference range: 150 - 328 10*3/?L. The reference range was not used to interpret this result as normal/abnormal. MPV (test code = 34796-0) 9.7 fL 9.8-13.0 L NRBC/100 WBC (test code = 3154037130) See_Comment [Automated me ssage] The system which generated this result transmitted reference range: 0.0 - 10.0 /100 WBCs. The reference range was not used to interpret this result as normal/abnormal. NRBC x10^3 (test code = 0939663191) <0.01 See_Comment [Automated messa ge] The system which generated this result transmitted reference range: 10*3/?L. The reference range was not used to interpret this result as normal/abnormal. GRAN MAT (NEUT) % (test code = 770-8) 54.9 % IMM GRAN % (test code = 6281729065) 0.70 % LYMPH % (test code = 736-9) 32.9 % MONO % (test code = 5905-5) 8.7 % EOS % (test code = 713-8) 2.0 % BASO % (test code = 706-2) 0.8 % GRAN MAT x10^3(ANC) (test code = 2212450958) 5.84 10*3/uL 1.99-6.95 IMM GRAN x10^3 (test code = 4543280980) 0.07 10*3/uL 0.00-0.06 H LYMPH x10^3 (test code = 731-0) 3.50 10*3/uL 1.09-3.23 H MONO x10^3 (test code = 742-7) 0.92 10*3/uL 0.36-1.02 EOS x10^3 (test code = 711-2) 0.21 10*3/uL 0.06-0.53 BASO x10^3 (test code = 704-7) 0.09 10*3/uL 0.01-0.09 Lab Interpretation (test code = 53764-3) Abnormal [facility] ArlingtonFRANCISCORALPH H. JOHNS[facility] MED[facility] CENTERMONIE [id number] 01:09:15* Test Item Value Reference Range Interpretation Comments TROPONIN I (test code = 3600319862) 0.003 ng/mL See_Comment [Automated message] The system [...] of biotin. Lab Interpretation (test code = 54061-1) Normal [facility]. METABOLIC PANEL (67944)2021-10-15 00:56:56* Test Item Value Reference Range Interpretation Comme nts NA (test code = 0809633106) 135 mmol/L 135-145 K (test code = 6592714020) 4.6 mmol/L 3.5-5.0 CL (test code = 8823977538) 101 mmol/L 98-108 CO2 TOTAL (test code = 1781509772) 25 mmol/L 23-31 AGAP (test code = 9730805232) 2-16 BUN (test code = 4186714055) 20 mg/dL 7-23 GLUCOSE (test code = 2931784388) 130 mg/dL 70-110 H CREATININE (test code = 9245798147) 0.92 mg/dL 0.60-1.25 TOTAL BILI (test code = 8891864682) 0.4 mg/dL 0.1-1.1 CALCIUM (test code = 6936882200) 10.0 mg/dL 8.6-10.6 T PROTEIN (test code = 0631537437) 8.5 g/dL 6.3-8.2 H ALBUMIN (test code = 9510646801) 4.8 g/dL 3.5-5.0 ALK PHOS (test code = 4122004835) 89 U/L 34-122 ALTv (test code = 1742-6) 59 U/L 5-50 H AST(SGOT) (test code = 3734431160) 38 U/L 13-40 eGFR (test code = 6691290903) mL/min/1.73m2 LAURIE (test code = LAURIE) Association [...] imaging tests). Lab Interpretation (test code = 32975-8) Abnormal [facility]2021-[facility]-27 00:56:36* Test Item Value Reference Range Interpretation Comme nts LIPASE (test code = 7317958189) 77 U/L 0-220 Lab Interpretation (test cod e = 02792-8) Normal [facility] WITH [id number] 00:37:36* Test Item Value Reference Range Interpretation Comme nts WBC (test code = 6690-2) See_Comment [Automated [employer]] The system which generated this result transmitted reference range: 4.20 - 10.70 10*3/?L. The reference range was not used to interpret this result as normal/abnormal. RBC (test code = 789-8) See_Comment [Automated [employer] ge] The system which generated this result [...] 33.6 g/dL 31.2-35.0 RDW-SD (test code = 20957-7) 44.2 fL 38.5-51.6 RDW-CV (test code = 788-0) 13.3 % 12.1-15.4 PLT (test code = 777-3) See_Comment [Automated [employer]] The system which generated this result transmitted reference range: 150 - 328 10*3/?L. The reference range was not used to interpret this result as normal/abnormal. MPV (test code = 26815-3) 9.5 fL 9.8-13.0 L NRBC/100 WBC (test code = 5667681325) See_Comment [Automated [employer] ssage] The system which generated this result transmitted reference range: 0.0 - 10.0 /100 WBCs. The reference range was not used to interpret this result as normal/abnormal. NRBC x10^3 (test code = 0430956934) <0.01 See_Comment [Automated [employer] ge] The system which generated this result transmitted reference range: 10*3/?L. The reference range was not used to interpret this result as normal/abnormal. GRAN MAT (NEUT) % (test code = 770-8) 55.3 % IMM GRAN % (test code = 9152443485) 0.60 % LYMPH % (test code = 736-9) 32.5 % MONO % (test code = 5905-5) 7.8 % EOS % (test code = 713-8) 2.7 % BASO % (test code = 706-2) 1.1 % GRAN MAT x10^3(ANC) (test code = 8207459181) 5.74 10*3/uL 1.99-6.95 IMM GRAN x10^3 (test code = 8215641768) 0.06 10*3/uL 0.00-0.06 LYMPH x10^3 (test code = 731-0) 3.37 10*3/uL 1.09-3.23 H MONO x10^3 (test code = 742-7) 0.81 10*3/uL 0.36-1.02 EOS x10^3 (test code = 711-2) 0.28 10*3/uL 0.06-0.53 BASO x10^3 (test code = 704-7) 0.11 10*3/uL 0.01-0.09 H Lab Interpretation (test code = 33403-6) Abnormal [facility] (ID NOW RAPID TESTING)2021-03-15 04:10:11* Test Item Value Reference Range Interpretation Comme nts SARS-CoV-2 Rapid ID NOW (test code = 15281-3) Not Detected Not Detected LAURIE (test code = LAURIE) ID NOW COVID-19 As say is an isothermal nucleic acid amplification test intended for the qualitative detection of nucleic acid from SARS-CoV-2 viral RNA in nasopharyngeal (STAFFING DIRECTOR) specimens. It is used under Emergency Use [...] clinically indicated. Lab Interpretation (test code = 30555-4) Normal [facility]. METABOLIC PANEL (08793)2021-03-15 03:35:30* Test Item Value Reference Range Interpretation Comme nts NA (test code = 8686171713) 139 mmol/L 135-145 K (test code = 0177383053) 3.2 mmol/L 3.5-5.0 L CL (test code = 8737343954) 109 mmol/L 98-108 H CO2 TOTAL (test code = 0257283271) 23 mmol/L 23-31 AGAP (test code = 1202446021) 2-16 BUN (test code = 8207581677) 19 mg/dL 7-23 GLUCOSE (test code = 2485906266) 150 mg/dL 70-110 H CREATININE (test code = 5632995236) 0.81 mg/dL 0.60-1.25 TOTAL BILI (test code = 1377781374) 0.3 mg/dL 0.1-1.1 CALCIUM (test code = 8664809917) 8.2 mg/dL 8.6-10.6 L T PROTEIN (test code = 5014357604) 6.9 g/dL 6.3-8.2 ALBUMIN (test code = 8851177028) 4.0 g/dL 3.5-5.0 ALK PHOS (test code = 1478824144) 77 U/L 34-122 ALTv (test code = 1742-6) 22 U/L 5-50 AST(SGOT) (test code = 9223985863) 26 U/L 13-40 eGFR (test code = 8681031137) mL/min/1.73m2 LAURIE (test code = LAURIE) Association [...] imaging tests). Lab Interpretation (test code = 13867-6) Abnormal [facility]2021-05-27 03:35:00* Test Item Value Reference Range Interpretation Comme nts APPEARANCE (test code = 3845408260) Clear Clear COLOR (test code = 7844915960) Yellow Yellow PH (test code = 8824385498) 4.8-8.0 SP GRAVITY (test code = 7161025013) 1.003-1.030 GLU U QUAL (test code = 9055421798) Normal Normal BLOOD (test code = 8676711532) Negative Negative KETONES (test code = 5996418726) 5 mg/dL Negative A PROTEIN (test code = 2887-8) Negative Negative UROBILIN (test code = 6462136139) Normal Normal BILIRUBIN (test code = 8673029579) Negative Negative NITRITE (test code = 5466404280) Negative Negative LEUK KENNY (test code = 8344975655) Negative Negative RBC/HPF (test code = 5974315445) <1 See_Comment [Automated [employer]] The system which generated this result transmitted reference range: 0 - 3 HPF. The reference range was not used to interpret this result as normal/abnormal. WBC/HPF (test code = 3205656720) <1 See_Comment [Automated [employer]] The system which generated this result transmitted reference range: 0 - 5 HPF. The reference range was not used to interpret this result as normal/abnormal. BACTERIA (test code = 6266234654) Negative Negative MUCOUS (test code = 2799995305) Slight Negative LPF A SQ EPITH (test code = 0753614367) <1 HPF Lab Interpretation (test code = 08653-5) Abnormal [facility] WITH [id number] 03:22:25* Test Item Value Reference Range Interpretation [...] 33.3 g/dL 31.2-35.0 RDW-SD (test code = 27692-7) 45.8 fL 38.5-51.6 RDW-CV (test code = 788-0) 13.7 % 12.1-15.4 PLT (test code = 777-3) See_Comment H [Automated messa ge] The system which generated this result transmitted reference range: 150 - 328 10*3/?L. The reference range was not used to interpret this result as normal/abnormal. MPV (test code = 91525-2) 9.4 fL 9.8-13.0 L NRBC/100 WBC (test code = 0781679005) See_Comment [Automated [employer] ssage] The system which generated this result transmitted reference range: 0.0 - 10.0 /100 WBCs. The reference range was not used to interpret this result as normal/abnormal. NRBC x10^3 (test code = 7403256225) <0.01 See_Comment [Automated messa ge] The system which generated this result transmitted reference range: 10*3/?L. The reference range was not used to interpret this result as normal/abnormal. GRAN MAT (NEUT) % (test code = 770-8) 58.4 % IMM GRAN % (test code = 3376619977) 0.50 % LYMPH % (test code = 736-9) 30.5 % MONO % (test code = 5905-5) 7.5 % EOS % (test code = 713-8) 2.2 % BASO % (test code = 706-2) 0.9 % GRAN MAT x10^3(ANC) (test code = 8217378609) 5.75 10*3/uL 1.99-6.95 IMM GRAN x10^3 (test code = 2242393916) 0.05 10*3/uL 0.00-0.06 LYMPH x10^3 (test code = 731-0) 3.00 10*3/uL 1.09-3.23 MONO x10^3 (test code = 742-7) 0.74 10*3/uL 0.36-1.02 EOS x10^3 (test code = 711-2) 0.22 10*3/uL 0.06-0.53 BASO x10^3 (test code = 704-7) 0.09 10*3/uL 0.01-0.09 Lab Interpretation (test code = 80711-7) [facility]normal [facility] METABOLIC PANEL (41451)2020-09-08 23:50:00* Test Item Value Reference Range Interpretation Comme nts NA (test code = 8438853078) 139 mmol/L 135-145 K (test code = 5699479362) 4.1 mmol/L 3.5-5 CL (test code = 0485506992) 107 mmol/L 98-108 CO2 TOTAL (test code = 1780037106) 22 mmol/L 23-31 L AGAP (test code = 3494392313) 2-16 BUN (test code = 6588179787) 12 mg/dL 7-23 GLUCOSE (test code = 7463286742) 115 mg/dL 70-110 H CREATININE (test code = 2261011775) 0.54 mg/dL 0.6-1.25 L TOTAL BILI (test code = 6367040580) 0.3 mg/dL 0.1-1.1 CALCIUM (test code = 5569965592) 9.3 mg/dL 8.6-10.6 T PROTEIN (test code = 4848795544) 7.6 g/dL 6.3-8.2 ALBUMIN (test code = 3740958615) 4.3 g/dL 3.5-5 ALK PHOS (test code = 0554424542) 80 U/L 34-122 ALTv (test code = 1742-6) 21 U/L 5-50 AST(SGOT) (test code = 0558175040) 21 U/L 13-40 eGFR Calculation (Non-) (test code = 8086271465) mL/min/1.73m2 eGFR Calculation () (test code = 2908406824) mL/min/1.73m2 LAURIE (test code = LAURIE) Association [...] imaging tests). Lab Interpretation (test code = 63788-4) Abnormal [facility]2020-11-20 23:50:00* Test Item Value Reference Range Interpretation Comme nts LIPASE (test code = 6011360517) 68 U/L 0-220 Lab Interpretation (test cod e = 16979-8) Normal [facility] WITH [id number] 23:22:00* Test Item Value Reference Range Interpretation [...] 34.1 g/dL 31.2-35 RDW-SD (test code = 70554-0) 40.8 fL 38.5-51.6 RDW-CV (test code = 788-0) 12.5 % 12.1-15.4 PLT (test code = 777-3) See_Comment [Automated messa ge] The system which generated this result transmitted reference range: 150 - 328 10*3/?L. The reference range was not used to interpret this result as normal/abnormal. MPV (test code = 03967-5) 9.1 fL 9.8-13 L NRBC/100 WBC (test code = 6725397426) See_Comment [Automated [employer] ssage] The system which generated this result transmitted reference range: 0.0 - 10.0 /100 WBCs. The reference range was not used to interpret this result as normal/abnormal. NRBC x10^3 (test code = 7420231504) <0.01 See_Comment [Automated messa ge] The system which generated this result transmitted reference range: 10*3/?L. The reference range was not used to interpret this result as normal/abnormal. GRAN MAT (NEUT) % (test code = 770-8) 59.0 % IMM GRAN % (test code = 7381270956) 0.60 % LYMPH % (test code = 736-9) 31.3 % MONO % (test code = 5905-5) 6.6 % EOS % (test code = 713-8) 1.9 % BASO % (test code = 706-2) 0.6 % GRAN MAT x10^3(ANC) (test code = 0442503930) 5.85 10*3/uL 1.99-6.95 IMM GRAN x10^3 (test code = 9842215608) 0.06 10*3/uL 0-0.06 LYMPH x10^3 (test code = 731-0) 3.10 10*3/uL 1.09-3.23 MONO x10^3 (test code = 742-7) 0.65 10*3/uL 0.36-1.02 EOS x10^3 (test code = 711-2) 0.19 10*3/uL 0.06-0.53 BASO x10^3 (test code = 704-7) 0.06 10*3/uL 0.01-0.09 Lab Interpretation (test code = 08441-0) [facility] W [id number] 17:21:17CT Abdomen and Pelvis with intravenous contrast. [...] Pelvis with intravenous contrast.CLINICAL HISTORY: Abdominal infection including peritonitis.DOSE: Up-to-date CT equipment and radiation dose reduction techniques wereemployed. CTDIvol: 10.76 mGy. DLP: 553 mGy-cm.TECHNIQUE : Contiguous axial imaging from the level of the lung basesthrough the pubic symphysis were performed after the uncomplicatedadministration of Omnipaque cont rast material. Coronal and sagittalreconstructions were obtained. Auto mA and/or iterative reconstruction wereused to reduce radiation dose.FINDINGS: Comparison has been made with 08/27/2020 study.Lower lungs: Clear. No pleural effusion or pericardial effusion.Liver, Gallbladder and Spleen: Liver isapproximately 19 cm and showed nofocal enhancing lesions. Spleen is of normal size. Cholecystectomy noted.Biliary ducts and the pancreatic duct appear of normal size.Peritoneum: No free air or free fluid. No lymphadenopathy.Pancreas and Adrenals: Unremarkable pancreas and adrenal glands.Kidneys andUreters: No visible calculi in the renal collecting systems. No hydroureter or hydronephrosis. Vessels: Minimal atherosclerosis in the proximal right common iliac artery.Retroperitoneum: No abnormal fluid or lymphadenopathy.Bowel: Mild diverticulosis of the sigmoid colon without any acute changes.Normal appendix is visualized.Bladder and Reproductive Organs: Unremarkable, incompletely and unopacifieddistended urinary bladder, except for thickened pike which is likely dueto underdistention. Cent ral zone prostatic calcifications noted.Bones: No acute findings. [...] fluid inthe abdomen or in the pelvis.2. Hepatomegaly.[facility]. METABOLIC PANEL (78605) 2020-09-06 16:39:00* Test Item Value Reference Range Interpretation Comme nts NA (test code = 9352691132) 138 mmol/L 135-145 K (test code = 3463258998) 4.2 mmol/L 3.5-5 CL (test code = 6988804026) 103 mmol/L 98-108 CO2 TOTAL (test code = 7416296293) 25 mmol/L 23-31 AGAP (test code = 6308149156) 2-16 BUN (test code = 2430543808) 17 mg/dL 7-23 GLUCOSE (test code = 0984430137) 124 mg/dL 70-110 H CREATININE (test code = 0722971728) 0.95 mg/dL 0.6-1.25 TOTAL BILI (test code = 8681379680) 0.4 mg/dL 0.1-1.1 CALCIUM (test code = 0579083947) 9.7 mg/dL 8.6-10.6 T PROTEIN (test code = 2571364262) 7.9 g/dL 6.3-8.2 ALBUMIN (test code = 6969061146) 4.5 g/dL 3.5-5 ALK PHOS (test code = 9605395540) 75 U/L 34-122 ALTv (test code = 1742-6) 28 U/L 5-50 AST(SGOT) (test code = 7167283095) 23 U/L 13-40 eGFR Calculation (Non-) (test code = 4909255265) mL/min/1.73m2 eGFR Calculation () (test code = 2159551586) mL/min/1.73m2 LAURIE (test code = LAURIE) Association [...] imaging tests). Lab Interpretation (test code = 10473-6) [facility] 16:39:00* Test Item Value Reference Range Interpretation Comme nts LIPASE (test code = 6202758717) 70 U/L 0-220 Lab Interpretation (test cod e = 53146-5) Normal [facility]2020-11-18 16:39:00* Test Item Value Reference Range Interpretation Comme nts MAGNESIUM (test code = 2595386937) 1.9 mg/dL 1.7-2.4 Lab Interpretation (test cod e = 98213-2) Normal [facility] ArlingtonLactic Acid Whole [id number] 16:38:00* Test Item Value Reference Range Interpretation Comme nts LACTIC ACID (test code = 7060261390) 1.51 mmol/L [facility] WITH [id number] 16:20:00* Test Item Value Reference Range Interpretation Comme nts WBC (test code = 6690-2) See_Comment [Automated [employer]] The system which generated this result transmitted reference range: 4.20 - 10.70 10*3/?L. The reference range was not used to interpret this result as normal/abnormal. RBC (test code = 789-8) See_Comment [Automated [employer] ge] The system which generated this result [...] 32.8 g/dL 31.2-35 RDW-SD (test code = 21441-0) 42.2 fL 38.5-51.6 RDW-CV (test code = 788-0) 12.6 % 12.1-15.4 PLT (test code = 777-3) See_Comment [Automated messa ge] The system which generated this result transmitted reference range: 150 - 328 10*3/?L. The reference range was not used to interpret this result as normal/abnormal. MPV (test code = 39745-8) 9.3 fL 9.8-13 L NRBC/100 WBC (test code = 1416589801) See_Comment [Automated [employer] ssage] The system which generated this result transmitted reference range: 0.0 - 10.0 /100 WBCs. The reference range was not used to interpret this result as normal/abnormal. NRBC x10^3 (test code = 9418151102) <0.01 See_Comment [Automated messa ge] The system which generated this result transmitted reference range: 10*3/?L. The reference range was not used to interpret this result as normal/abnormal. GRAN MAT (NEUT) % (test code = 770-8) 64.9 % IMM GRAN % (test code = 5434284104) 0.50 % LYMPH % (test code = 736-9) 25.0 % MONO % (test code = 5905-5) 7.5 % EOS % (test code = 713-8) 1.3 % BASO % (test code = 706-2) 0.8 % GRAN MAT x10^3(ANC) (test code = 8926145818) 5.99 10*3/uL 1.99-6.95 IMM GRAN x10^3 (test code = 9344271489) 0.05 10*3/uL 0-0.06 LYMPH x10^3 (test code = 731-0) 2.31 10*3/uL 1.09-3.23 MONO x10^3 (test code = 742-7) 0.69 10*3/uL 0.36-1.02 EOS x10^3 (test code = 711-2) 0.12 10*3/uL 0.06-0.53 BASO x10^3 (test code = 704-7) 0.07 10*3/uL 0.01-0.09 Lab Interpretation (test code = 85944-1) [facility]49965[facility]2020-[facility]-30 10:29:00* Test Item Value Reference Range Interpretation Comme nts NA (test code = 7741689271) 139 mmol/L 135-145 K (test code = 9382552510) 4.7 mmol/L 3.5-5 CL (test code = 6528787887) 105 mmol/L 98-108 CO2 TOTAL (test code = 3477829629) 24 mmol/L 23-31 AGAP (test code = 4739470279) 2-16 BUN (test code = 3970047767) 21 mg/dL 7-23 GLUCOSE (test code = 6572400861) 109 mg/dL 70-110 CREATININE (test code = 2897989865) 0.99 mg/dL 0.6-1.25 TOTAL BILI (test code = 3116273859) 0.4 mg/dL 0.1-1.1 CALCIUM (test code = 3848723479) 9.4 mg/dL 8.6-10.6 T PROTEIN (test code = 0007479655) 7.4 g/dL 6.3-8.2 ALBUMIN (test code = 9325978485) 4.2 g/dL 3.5-5 ALK PHOS (test code = 9461574599) 68 U/L 34-122 ALTv (test code = 1742-6) 33 U/L 5-50 AST(SGOT) (test code = 5246200745) 28 U/L 13-40 eGFR Calculation (Non-) (test code = 1922713538) mL/min/1.73m2 eGFR Calculation () (test code = 7577855744) mL/min/1.73m2 LAURIE (test code = LAURIE) Association [...] or urine or abnormalities in imaging tests). [facility] WITH [id number] 09:50:00* Test Item Value Reference Range Interpretation [...] 32.4 g/dL 31.2-35 RDW-SD (test code = 45696-7) 43.6 fL 38.5-51.6 RDW-CV (test code = 788-0) 13.0 % 12.1-15.4 PLT (test code = 777-3) See_Comment [Automated message] The system which generated this result transmitted reference range: 150 - 328 10*3/?L. The reference range was not used to interpret this result as normal/abnormal. MPV (test code = 61712-8) 10.0 fL 9.8-13 NRBC/100 WBC (test code = 5911201775) See_Comment [Automated message] The system which generated this result transmitted reference range: 0.0 - 10.0 /100 WBCs. The reference range was not used to interpret this result as normal/abnormal. NRBC x10^3 (test code = 0903269091) <0.01 See_Comment [Automated message] The system which generated this result transmitted reference range: 10*3/?L. The reference range was not used to interpret this result as normal/abnormal. GRAN MAT (NEUT) % (test code = 770-8) 80.1 % IMM GRAN % (test code = 8472233089) 0.50 % LYMPH % (test code = 736-9) 12.5 % MONO % (test code = 5905-5) 6.5 % EOS % (test code = 713-8) 0.1 % BASO % (test code = 706-2) 0.3 % GRAN MAT x10^3(ANC) (test code = 8427268843) 12.09 10*3/uL 1.99-6.95 H IMM GRAN x10^3 (test code = 4945235759) 0.08 10*3/uL 0-0.06 H LYMPH x10^3 (test code = 731-0) 1.89 10*3/uL 1.09-3.23 MONO x10^3 (test code = 742-7) 0.98 10*3/uL 0.36-1.02 EOS x10^3 (test code = 711-2) <0.03 0.06-0.53 L BASO x10^3 (test code = 704-7) 0.04 10*3/uL 0.01-0.09 Lab Interpretation (test code = 46345-2) Abnormal [facility] ArlingtonHEPAT[facility] FUNCTION PANEL (28192) (ALB,T.PRO,BILI T,BU/BC,ALT,AST,ALK PHOS)2020-08-28 21:15:00* Test Item Value Reference Range Interpretation Comme nts TOTAL BILI (test code = 2220530213) 0.6 mg/dL 0.1-1.1 BILI UNCON (test code = 5970494227) 0.4 mg/dL 0.1-1.1 BILI CONJ (test code = 4100422582) 0.0 mg/dL 0-0.3 T PROTEIN (test code = 2801461494) 7.2 g/dL 6.3-8.2 ALBUMIN (test code = 9719267961) 3.9 g/dL 3.5-5 ALK PHOS (test code = 8171309687) 65 U/L 34-122 ALTv (test code = 1742-6) 20 U/L 5-50 AST(SGOT) (test code = 9583640598) 25 U/L 13-40 Lab Interpretation (test cod e = 55490-1) Normal [facility] ABDOMEN [id number] 18:22:30 Hepatomegaly with moderate hepatic steatosis. Cholelithiasis [...] sign which could be related to stone. [facility] CHEST 1 [id number] 14:32:06No acute cardiopulmonary abnormality. Preliminary Report Dictated by Resident: Barry Figueroa MD., have reviewed this study and agree [...] cardiopulmonary abnormality.Preliminary Report Dictated by Resident: Barry Griffin MD., have reviewed this study andagree with theabove report.[facility] Metabolic Panel (NA, K, CL, CO2, GLUCOSE, BUN, CREATININE, CA) 2020-08-28 11:39:00* Test Item Value Reference Range Interpretation Comme nts NA (test code = 9329958212) 137 mmol/L 135-145 K (test code = 7718914726) 3.9 mmol/L 3.5-5 CL (test code = 7753764306) 104 mmol/L 98-108 CO2 TOTAL (test code = 9452858966) 28 mmol/L 23-31 AGAP (test code = 9782394460) 2-16 BUN (test code = 7064739956) 15 mg/dL 7-23 GLUCOSE (test code = 3415087631) 96 mg/dL 70-110 CREATININE (test code = 4588863677) 0.68 mg/dL 0.6-1.25 CALCIUM (test code = 4819108248) 9.2 mg/dL 8.6-10.6 eGFR Calculation (Non-) (test code = 6690381239) mL/min/1.73m2 eGFR Calculation () (test code = 2204207048) mL/min/1.73m2 LAURIE (test code = LAURIE) Association [...] or urine or abnormalities in imaging tests). [facility]CT ABDOMEN PELVIS W WO [id number] 19:39:221. ?Diffuse bladder wall thickening is likely due to underdistention.However, correlation with urinalysis is recommended to evaluate forcystitis/CT. 2. ?No acute findings in the abdomen or pelvis otherwise noted.Specifically, no appendicitis or diverticulitis. 3. ?Diffuse fatty infiltration of the liver. Preliminary Report Dictated by Resident: Vahid Ledesma ?MD Hermes., have reviewed this study and agree with [...] of the liver.Preliminary Report Dictated by Resident: Raji Arevalo, Vahid Mirza MD., have reviewed this study and agree with theabove report.[facility] ArlingtonPOMD GLUCOSE (AUTOMATED) 2020-08-27 19:34:00* Test Item Value Reference Range Interpretation Comme [facility] POCT GLU (test code = 8873978235) 95 mg/dL 70-110 Lab Interpretation (test cod e = 66726-5) [id number] 19:12:00* Test Item Value Reference Range Interpretation Comme [facility] TROPONIN I (test code = 2197420954) <0.012 See_Comment [Automated message] The system which [...] biotin. ? Lab Interpretation (test code = 12970-1) Normal [facility] ArlingtonPOCT GLUCOSE (AUTOMATED)2020-08-27 14:42:00* Test Item Value Reference Range Interpretation Comme [facility] POCT GLU (test code = 6081893696) 99 mg/dL 70-110 Lab Interpretation (test cod e = 33521-5) Normal [facility] ArlingtonTROPONIN [id number] 13:09:00* Test Item Value Reference Range Interpretation Comme [facility] TROPONIN I (test code = 5090774453) <0.012 See_Comment [Automated message] The system which [...] biotin. ? Lab Interpretation (test code = 76257-9) Normal [facility] ArlingtonLIPID PANEL (67010)(TOTAL CHOLESTEROL, TRIGLYCERIDES, HDL)2020-08-27 08:31:00* Test Item Value Reference Range Interpretation Comme nts CHOL (test code = 1391050520) 208 mg/dL 120-200 H HDL (test code = 7993754514) 28 mg/dL >40 L HDLC RATIO (test code = 9852112187) See_Comment H [Automated [employer] ge] The system which generated this result transmitted reference range: <=5.0. The reference range was not used to interpret this result as normal/abnormal. TRIG (test code = 3619997063) 351 mg/dL 30-170 H LDL CHOL (test code = 84014-0) 110 mg/dL See_Comment [Automated [employer]] The system which generated this result transmitted reference range: <=160. The reference range was not used to interpret this result as normal/abnormal. VLDL (test code = 5875962804) 70 mg/dL 5-60 H Lab Interpretation (test code = 32747-5) Abnormal [facility] ArlingtonTHYROID STIMULATING [id number] 08:00:00 * Test Item Value Reference Range Interpretation Comme nts TSH (test code = 2752127196) See_Comment L Biotin has been reported to cause a negative bias, interpret results relative to patient's use of biotin. [Automated message] The system which generated this result transmitted reference range: 0.45 - 4.70 mIU/L. The reference range was not used to interpret this result as normal/abnormal. Lab Interpretation (test code = 74230-7) Abnormal [facility] ArlingtonCOVID-19 (ID NOW RAPID TESTING)2020-08-27 07:03:00* Test Item Value Reference Range Interpretation Comme nts SARS-CoV-2 Rapid ID NOW (test code = 73332-9) Not Detected Not Detected LAURIE (test code = LAURIE) ID NOW COVID-19 As say is an isothermal nucleic acid amplification test intended for the qualitative detection of nucleic acid from SARS-CoV-2 viral RNA in nasopharyngeal (STAFFING DIRECTOR) specimens. It is used under Emergency Use [...] clinically indicated. Lab Interpretation (test code = 00888-8) Normal [facility] / [facility] - DRUG SCREEN [id number] 06:58:00* Test Item Value Reference Range Interpretation Comme nts BENZO U (test code = 3366623756) Negative Negative HORACIO U (test code = 6929553254) Negative Negative AMPHET (test code = 3785592504) Negative Negative THC (test code = 6337224678) Negative Negative METHADONE (test code = 0368864469) Negative Negative Meth U (test code = 8551542432) Negative Negative OPIATES (test code = 2795112013) Negative Negative Cocaine Metabolite (test code = 4824846232) Negative Negative PROPOXY (test code = 7995310600) Negative Negative Tric U (test code = 4308408545) Negative Negative PCP (test code = 4584535657) Negative Negative OXYCOD (test code = 0123988191) Negative Negative LAURIE (test code = LAURIE) [...] legal testing). Lab Interpretation (test code = 83452-5) Normal [facility] ArlingtonUrinalysis2020-11-08 06:51:00* Test Item Value Reference Range Interpretation Comme nts APPEARANCE (test code = 5828407341) Clear Clear COLOR (test code = 4112254717) Yellow Yellow PH (test code = 5548674572) 4.8-8.0 SP GRAVITY (test code = 9106384702) 1.003-1.030 GLU U QUAL (test code = 5230268744) Normal Normal BLOOD (test code = 3301628008) Negative Negative KETONES (test code = 1504386497) 20 mg/dL Negative A PROTEIN (test code = 2887-8) Negative Negative UROBILIN (test code = 3513053999) Normal Normal BILIRUBIN (test code = 8720916304) Negative Negative NITRITE (test code = 5730355519) Negative Negative LEUK KENNY (test code = 6923339583) Negative Negative RBC/HPF (test code = 9217583677) See_Comment [Automated [employer]] The system which generated this result transmitted reference range: 0 - 3 HPF. The reference range was not used to interpret this result as normal/abnormal. WBC/HPF (test code = 3464575117) See_Comment [Automated [employer]] The system which generated this result transmitted reference range: 0 - 5 HPF. The reference range was not used to interpret this result as normal/abnormal. BACTERIA (test code = 3197879726) Negative Negative MUCOUS (test code = 3741010577) Slight Negative LPF A Lab Interpretation (test code = 26304-6) Abnormal [facility] ArlingtonTroponin [id number] 06:45:00* Test Item Value Reference Range Interpretation Comme nts TROPONIN I (test code = 5572383295) <0.012 See_Comment [Automated message] The system which [...] biotin. ? Lab Interpretation (test code = 35394-7) Normal [facility] ArlingtonETHANOL2020-11-08 06:34:00* Test Item Value Reference Range Interpretation Comme nts ALCOHOL (test code = 0820412593) 14 mg/dL LAURIE (test code = LAURIE) <10 Vjwddzkb65-934 Toxic>100 Depression of ROLLER SKATE ASSEMBLER>400 Fatalities Reported [facility] ArlingtonBasi Metabolic Panel (NA, K, CL, CO2, GLUCOSE, BUN, CREATININE, CA)2020-08-27 06:33:00* Test Item Value Reference Range Interpretation Comme nts NA (test code = 4221816505) 137 mmol/L 135-145 K (test code = 4703808827) 3.6 mmol/L 3.5-5 CL (test code = 5288172280) 102 mmol/L 98-108 CO2 TOTAL (test code = 9818763713) 26 mmol/L 23-31 AGAP (test code = 5081367866) 2-16 BUN (test code = 4819253917) 13 mg/dL 7-23 GLUCOSE (test code = 7313501226) 119 mg/dL 70-110 H CREATININE (test code = 6484615296) 0.86 mg/dL 0.6-1.25 CALCIUM (test code = 7525182641) 9.8 mg/dL 8.6-10.6 eGFR Calculation (Non-) (test code = 2279214538) mL/min/1.73m2 eGFR Calculation () (test code = 9952765415) mL/min/1.73m2 LAURIE (test code = LAURIE) Association [...] imaging tests). Lab Interpretation (test code = 82095-3) Abnormal [facility] ArlingtonHepatic Function Panel (ALB, T.PRO, BILI T, BU/BC, ALT, AST, ALK PHOS)2020-08-27 06:33:00* Test Item Value Reference Range Interpretation Comme nts TOTAL BILI (test code = 9933479213) 0.3 mg/dL 0.1-1.1 BILI UNCON (test code = 3150133558) 0.2 mg/dL 0.1-1.1 BILI CONJ (test code = 6994655379) 0.0 mg/dL 0-0.3 T PROTEIN (test code = 8774647188) 7.8 g/dL 6.3-8.2 ALBUMIN (test code = 9627491970) 4.5 g/dL 3.5-5 ALK PHOS (test code = 3139169042) 71 U/L 34-122 ALTv (test code = 1742-6) 26 U/L 5-50 AST(SGOT) (test code = 6344488562) 26 U/L 13-40 Lab Interpretation (test cod e = 23553-4) Normal [facility] ArlingtonLipase [id number] 06:33:00* Test Item Value Reference Range Interpretation Comme nts LIPASE (test code = 1351674861) 77 U/L 0-220 Lab Interpretation (test cod e = 11817-1) Normal [facility] ArlingtonaPTT2020-11-08 06:19:00* Test Item Value Reference Range Interpretation Comme nts APTT Patient (test code = 3173-2) See_Comment [Automated message] The system which generated this result transmitted reference range: 23 - 38 Seconds. The reference range was not used to interpret this result as normal/abnormal. LAURIE (test code = LAUREI) The [facility] patient population mean normal value for aPTT is 30 seconds. Lab Interpretation (test code = 16770-7) Normal [facility] ArlingtonProthrombin Time (PT) / [id number] 06:17:00 * Test Item Value Reference Range Interpretation Comme nts PROTIME PATIENT (test code = 5964-2) See_Comment [Automated [employer]] The system which generated this result transmitted reference range: 12.0 - 14.7 Seconds. The reference range was not used to interpret this result as normal/abnormal. INR (test code = 6301-6) Normal INR <1.1; Warfarin Therapeutic range 2.0 to 3.0 or 2.5 to 3.5, depending upon the indications. Lab Interpretation (test code = 73956-5) Normal [facility] ArlingtonCBC with [id number] 06:07:00* Test Item Value Reference Range Interpretation Comme nts WBC (test code = 6690-2) See_Comment [Automated [employer]] The system which generated this result transmitted reference range: 4.20 - 10.70 10*3/?L. The reference range was not used to interpret this result as normal/abnormal. RBC (test code = 789-8) See_Comment [Automated [employer]] The system which generated this result [...] 32.8 g/dL 31.2-35 RDW-SD (test code = 25004-0) 42.9 fL 38.5-51.6 RDW-CV (test code = 788-0) 12.7 % 12.1-15.4 PLT (test code = 777-3) See_Comment [Automated [employer]] The system which generated this result transmitted reference range: 150 - 328 10*3/?L. The reference range was not used to interpret this result as normal/abnormal. MPV (test code = 59083-6) 9.1 fL 9.8-13 L NRBC/100 WBC (test code = 1440570027) See_Comment [Automated [employer] ssage] The system which generated this result transmitted reference range: 0.0 - 10.0 /100 WBCs. The reference range was not used to interpret this result as normal/abnormal. NRBC x10^3 (test code = 5803956594) <0.01 See_Comment [Automated [employer]] The system which generated this result transmitted reference range: 10*3/?L. The reference range was not used to interpret this result as normal/abnormal. GRAN MAT (NEUT) % (test code = 770-8) 52.4 % IMM GRAN % (test code = 4339204579) 0.50 % LYMPH % (test code = 736-9) 37.8 % MONO % (test code = 5905-5) 6.2 % EOS % (test code = 713-8) 2.3 % BASO % (test code = 706-2) 0.8 % GRAN MAT x10^3(ANC) (test code = 7378104388) 4.33 10*3/uL 1.99-6.95 IMM GRAN x10^3 (test code = 9608724319) 0.04 10*3/uL 0-0.06 LYMPH x10^3 (test code = 731-0) 3.13 10*3/uL 1.09-3.23 MONO x10^3 (test code = 742-7) 0.51 10*3/uL 0.36-1.02 EOS x10^3 (test code = 711-2) 0.19 10*3/uL 0.06-0.53 BASO x10^3 (test code = 704-7) 0.07 10*3/uL 0.01-0.09 Lab Interpretation (test code = 15528-9) Abnormal [facility] ArlingtonUSMAN [id number] 04:41:00* Test Item Value Reference Range Interpretation Comme nts TROPONIN I (test code = 9523463381) 0.000 ng/mL See_Comment [Automated message] The system [...] biotin. ? Lab Interpretation (test code = 96936-2) Normal [facility] ArlingtonADC / [facility] - DRUG SCREEN [id number] 03:46:00* Test Item Value Reference Range Interpretation Comme nts BENZO U (test code = 2990289611) Negative Negative HORACIO U (test code = 5819676590) Negative Negative AMPHET (test code = 9831780725) Negative Negative THC (test code = 4563049111) Negative Negative METHADONE (test code = 5383150125) Negative Negative Meth U (test code = 3143343090) Negative Negative OPIATES (test code = 3316017713) Presumptive Positive Negative A Cocaine Metabolite (test code = 7974593790) Negative Negative PROPOXY (test code = 2943428460) Negative Negative Tric U (test code = 8558193380) Negative Negative PCP (test code = 0403231480) Negative Negative OXYCOD (test code = 6942980505) Negative Negative LAURIE (test code = LAURIE) [...] legal testing). Lab Interpretation (test code = 10229-6) Abnormal [facility] ArlingtonD-[id number] 03:29:00* Test Item Value Reference Range Interpretation Comments D-DIMER (test code = 2701304803) <0.27 See_Comment [Automated message] The system which [...] a diagnosis. Lab Interpretation (test code = 52302-7) Normal [facility] ArlingtonLIPASE2020-09-21 02:07:00* Test Item Value Reference Range Interpretation Comme nts LIPASE (test code = 6524616832) 58 U/L 0-220 Lab Interpretation (test cod e = 16763-4) Normal [facility] ArlingtonXR CHEST 1 [id number] 01:44:02No acute cardiopulmonary abnormality. Preliminary Report Dictated [...] reviewed this study and agree with theabove report.[facility] TROPONIN [id number] 01:40:00* Test Item Value Reference Range Interpretation Comme nts TROPONIN I (test code = 9743343221) 0.000 ng/mL See_Comment [Automated message] The system [...] biotin. ? Lab Interpretation (test code = 77073-7) Normal [facility] ArlingtonPROTHROMBIN TIME / [id number] 01:39:00* Test Item Value Reference Range Interpretation Comme [facility] PROTIME PATIENT (test code = 5964-2) See_Comment [Automated messa ge] The system which generated this result transmitted reference range: 12.0 - 14.7 Seconds. The reference range was not used to interpret this result as normal/abnormal. INR (test code = 6301-6) Normal INR <1.1; Warfarin Therapeutic range 2.0 to 3.0 or 2.5 to 3.5, depending upon the indications. Lab Interpretation (test code = 01822-5) Normal [facility] ArlingtonCOVID-19 (ID NOW RAPID TESTING)2020-07-10 01:36:00* Test Item Value Reference Range Interpretation Comme [facility] SARS-CoV-2 Rapid ID NOW (test code = 91253-8) Not Detected Not Detected LAURIE (test code = LAURIE) ID NOW COVID-19 As say is an isothermal nucleic acid amplification test intended for the qualitative detection of nucleic acid from SARS-CoV-2 viral RNA in nasopharyngeal (STAFFING DIRECTOR) specimens. It is used under Emergency Use [...] clinically indicated. Lab Interpretation (test code = 18596-5) Normal [facility]. METABOLIC PANEL (13668)2020-07-10 01:29:00* Test Item Value Reference Range Interpretation Comme nts NA (test code = 9423027131) 136 mmol/L 135-145 K (test code = 7131698082) 3.4 mmol/L 3.5-5 L CL (test code = 7389946750) 98 mmol/L 98-108 CO2 TOTAL (test code = 7147653288) 26 mmol/L 23-31 AGAP (test code = 4789590890) 2-16 BUN (test code = 8236880241) 16 mg/dL 7-23 GLUCOSE (test code = 5418278500) 165 mg/dL 70-110 H CREATININE (test code = 0014605484) 0.94 mg/dL 0.6-1.25 TOTAL BILI (test code = 9110134320) 0.4 mg/dL 0.1-1.1 CALCIUM (test code = 8244242260) 9.7 mg/dL 8.6-10.6 T PROTEIN (test code = 9282169324) 8.2 g/dL 6.3-8.2 ALBUMIN (test code = 2089385667) 4.4 g/dL 3.5-5 ALK PHOS (test code = 3401708245) 77 U/L 34-122 ALTv (test code = 1742-6) 31 U/L 5-50 AST(SGOT) (test code = 3542129370) 26 U/L 13-40 eGFR Calculation (Non-) (test code = 8444850331) mL/min/1.73m2 eGFR Calculation () (test code = 4841137128) mL/min/1.73m2 LAURIE (test code = LAURIE) Association [...] imaging tests). Lab Interpretation (test code = 35261-7) Abnormal [facility] WITH FPWD8929-27-97 01:11:00* Test Item Value Reference Range Interpretation Comme nts WBC (test code = 6690-2) See_Comment [[employer]] The system which generated this result transmitted reference range: 4.20 - 10.70 10*3/?L. The reference range was not used to interpret this result as normal/abnormal. RBC (test code = 789-8) See_Comment [Automated [employer]] The system which generated this result [...] 34.0 g/dL 31.2-35 RDW-SD (test code = 27834-1) 42.6 fL 38.5-51.6 RDW-CV (test code = 788-0) 13.0 % 12.1-15.4 PLT (test code = 777-3) See_Comment [Automated [employer]] The system which generated this result transmitted reference range: 150 - 328 10*3/?L. The reference range was not used to interpret this result as normal/abnormal. MPV (test code = 22979-4) 9.5 fL 9.8-13 L NRBC/100 WBC (test code = 3321378716) See_Comment [Automated [employer] ssage] The system which generated this result transmitted reference range: 0.0 - 10.0 /100 WBCs. The reference range was not used to interpret this result as normal/abnormal. NRBC x10^3 (test code = 7411048237) <0.01 See_Comment [Automated [employer]] The system which generated this result transmitted reference range: 10*3/?L. The reference range was not used to interpret this result as normal/abnormal. GRAN MAT (NEUT) % (test code = 770-8) 65.5 % IMM GRAN % (test code = 9134740572) 0.70 % LYMPH % (test code = 736-9) 26.1 % MONO % (test code = 5905-5) 5.7 % EOS % (test code = 713-8) 1.2 % BASO % (test code = 706-2) 0.8 % GRAN MAT x10^3(ANC) (test code = 7721082324) 6.62 10*3/uL 1.99-6.95 IMM GRAN x10^3 (test code = 7791913793) 0.07 10*3/uL 0-0.06 H LYMPH x10^3 (test code = 731-0) 2.64 10*3/uL 1.09-3.23 MONO x10^3 (test code = 742-7) 0.58 10*3/uL 0.36-1.02 EOS x10^3 (test code = 711-2) 0.12 10*3/uL 0.06-0.53 BASO x10^3 (test code = 704-7) 0.08 10*3/uL 0.01-0.09 Lab Interpretation (test code = 06922-6) Abnormal [facility] Notes Date/Time Note Provider Source 2024-02-04 14:36:04 8DvtLU7xOlaz88Hm28RNZCsmWH0QDIBmvX0e2 VA/THzHxo/EitgnHCvJ3IpLkg104536-10-73 T14:36:04 Pt discharged with diagnosis of generalized abdominal pain and N/V. Printed and verbal instructions reviewed with and given to patient. No new prescriptions given for this visit. Pt verbalized understanding of teaching and recommended follow-up. Denies questions or concerns at this time. Pt ambulatory at discharge. Appears in no apparent distress. No ataxia noted. 84646-9Xwmigywum department ZgljFD4307-10-35U45:36:32[facility] NoteTXT1.2.840.390925.1.13.104.2.7.2. 917936|[id number] for patient gnim16762-4CkhsGHMEGBVFBZFPjdxcpgdr C-CDA narrative [id number] N Dewoody RNUT[address] TsalUmnuwcurcDyvkmzherIPQI4574778258I GKEQZPLZXPVEZSRVYFRSQ7579-33-08J90:36 :321.2.840.450592.1.72.3.15|1.2.840.1 13563.1.13.104.2.7.2.727879_[id number] 2 Iris Ferguson RN [facility] 2024-02-04 13:30:00 viwzVMPUo9ZYzwXpleMtL/4yZYlWZTdATjgKV BX8OLfWnoTxlImpxe4CpnoTuh201998-40-50 T13:30:00 Report from Korey LAZO. 17863-0Ifsfnqksp department DwsmEP5833-84-01J26:44:41[facility] NoteTXT1.2.840.628812.1.13.104.2.7.2. 276223|[id number] for patient lypc74574-2TxcnFBKVTBOSETOCzhohkovp C-CDA narrative qkle618830464Ljmzrd R Potter RN[address] JbauBmojzujghPkrrfbtewCWYU9413908012N QIOWMSEJXGXYQMQPUKKHG0179-44-70K97:44 :411.2.840.580097.1.72.3.15|1.2.840.1 34547.1.13.104.2.7.2.727879_[id number] 6 Belkys Corrigan RN [facility] 2024-02-04 10:46:14 MYW4DcaxU8TE4SOS3j6Ckq9XpzbHalyZLdRWu y2ZdVbwFBZF7MSq+gnMV3n7EVNw0899-15-92 T10:46:14 Pt arrived via private car with RLQ abd pain starting 2-3 days ago abd becoming worse 90563-4Iiydgdyft department Triage bbpmIQ8600-54-09Z70:48:58[facility] department Triage noteTXT1.2.840.353615.1.13.104.2.7.2. 686697|[id number] for patient gtar06751-4Jtxxmyast department NoteLNNARRATIVEFormatted C-CDA narrative [id number] L Korey RN[address]TXTX7755577555U BUUQHHRASOGXHHWVSRTUZ3183-53-64S37:48 :581.2.840.020192.1.72.3.15|1.2.840.1 39602.1.13.104.2.7.2.727879_[id number] 8 Shalini Knapp Korey LAZO [facility] 2023-12-28 04:24:01 Y2Hf0Yb0cSzlA8+OcqTcqbkmjwJhYUTN5L+2h 1AhpnXjd1eo3jbk4C5n65KDn8Q38782-02-96 T04:24:01 Pt given printed and verbal discharge instructions regarding epigastric pain, encouraged smaller meals.Pt verbalized understanding of instructions,pt encouraged to follow up with pcp and or GIAdvised to seek medical attention for new/prolonged/worsening of symptoms,Awake, alert oriented, resp reg unlabored, skin w/d, pt leaving in no apparent distress, 08943-8Zdkwtotcw department VztiHJ4603-15-55T10:24:37[facility] department NoteTXT1.2.840.904927.1.13.104.2.7.2. 810085|[id number] for patient pvrf44962-3JujxRTXNCMTJOOYOisstjwxn C-CDA narrative kizt372601918Tyqvrk R Shehadeh RNUT[address] StreetTXTX7755577555U PQMIQYEBVEAURQYNXRCNG2080-51-17X00:24 :371.2.840.296148.1.72.3.15|1.2.840.1 63304.1.13.104.2.7.2.727879_[id number] 3 Cynthia Frank VIOLET [facility] 2023-12-28 03:42:02 oC9SN+QA4VxQADRx4BYYP/02cq+sAyUB9RiXv h1lDRmgvtLjTok5YGzMGwJwNt086871-68-08 T03:42:02 Pt reports the GI cocktail did not relieve his discomfort. Pt states he can feel his food coming up his esophagus. Pt is requesting medication for pain. 32462-2Jqsrwjyqm department QwogKX5211-55-08G53:43:54[facility] department NoteTXT1.2.840.274898.1.13.104.2.7.2. 401345|[id number] for patient wybx94822-5RqxaIMTSGPUXFJCViqxxgjry C-CDA narrative zhsm971425766Nyigoiw A Diaz RN[address] NmfcJofphfozrWacztplcmKQQR1455305409Z EFFNOLLXWMCFTHPJSIJPM3591-12-21M22:43 :541.2.840.310246.1.72.3.15|1.2.840.1 43523.1.13.104.2.7.2.727879_[id number] 4 Vira Huang RN [facility] 2023-12-28 03:07:24 Yits17kjdWHNH27Nai+oSuB/OUTjloRYu0SMV plkLu5TydyCsWsm2xyRMlsYX8pJ5081-47-97 T03:07:24 Patient ambulatory to ED c/o waking up around 0100 this AM to food feeling like it was coming back up from his stomach to mouth. Patient last ate around 1900 and went to bed around 2200. Patient states having headache, denies N/V/D. Tylenol taken around 1900 for headache. 65809-1Nmlbkjiwq department Triage qiciLZ5009-12-75I30:14:37[facility] Triage noteTXT1.2.840.493356.1.13.104.2.7.2. 535231|[id number] for patient kqbo82153-9Qxtdkvfyy department NoteLNNARRATIVEFormatted C-CDA narrative vtte227843765Pbzypb-Kpqao McInnis RN[address] MwzqIcyuoefxhNegokofxiTYRS1416650655O CBKOWRGYGMTEGRCYGWTBV6157-62-30E28:14 :371.2.840.768822.1.72.3.15|1.2.840.1 59570.1.13.104.2.7.2.727879_[id number] 8 Sarina Graham RN [facility] 2023-12-28 03:06:00 //fHFvEdEw/SyZsmCUeMsAp97Y8JK8HH6PkO +ScddOKAMjxctfG4wnXsZzvV/lC6760-57-59 T03:06:00 [facility] Emergency Department NotePatient Name: Marysol Lazo of : 1975 48 year old maleTreatment Room: Room/bed info not foundMedical Record Number: [id number] Care Physician: PATIENT DOES NOT HAVE A PCPPatient Escorted by: Friend [6]Mode of Arrival: Personal means [1]EMS Treatment Prior to ED Arrival:BUDGET REPORT CLERK treatment: Medication (comment)BUDGET REPORT CLERK treatment comments: TylenolTravel and Exposure Screening:SymptomsDoes patient have any of these symptoms?: (not recorded)Exposure ScreeningHas patient had contact with someone with a communicable disease in the last month?: (not recorded)Diseases exposed to:: (not recorded)Is Patient ?: (not recorded)Exposure Date: (not recorded)Chief Complaint:Chief ComplaintPatient presents withREFLUXHeadacheHistory of Present Illness:Marysol Dumont is a 48 year old male who presents to the ED with epigastric fullness that woke him from sleep and radiated towards his throat. No N/V. No fever or chills. Denies any chest pain or discomfort. No palpitations/SOB.History provided by: Patient and medical recordsLanguage state wildlife officer used: YesAbdominal PainPain location: EpigastricPain quality: fullnessPain radiates to: Epigastric regionPain severity: ModerateOnset quality: SuddenDuration: 1 hourTiming: SporadicChronicity: RecurrentContext: awakening from sleepContext: not alcohol use, not diet changes, not eating, not laxative use, not medication withdrawal, not previous surgeries, not recent illness, not recent travel, not retching, not sick contacts, not suspicious food intake and not traumaRelieved by: None triedWorsened by: NothingIneffective treatments: None triedAssociated symptoms: no anorexia, no belching, no chest pain, no chills, no constipation, no cough, no diarrhea, no dysuria, no fatigue, no fever, no flatus, no hematemesis, no hematochezia, no hematuria, no melena, no nausea, no shortness of breath, no sore throat and no vomitingRisk factors: obesityRisk factors: no alcohol abuse, no aspirin use, not elderly, has not had multiple surgeries, no NSAID use and no recent hospitalizationPast Medical History/Immunizations:Past Medical History:Diagnosis DateHTN (hypertension)HypothyroidismTetanus received in last 5 years: NoAllergies:No Known AllergiesPast Social History:Tobacco UseEvery Day; 0.25 packs/day; Types: CigarettesSmokeless Tobacco: Never used smokeless tobacco.Alcohol UseYes.Comments: 6beers on the weekendDrug UseNever.Past Surgical History:Past Surgical History:Procedure Laterality DateLAPAROSCOPIC CHOLECYSTECTOMY N/A 08/29/2020Surgeon: Vaishali Vicente MD; Location: [facility] OR LocationOTHERTesticular surgeryTONGUE TO LIP SURGERYTONSILLECTOMYReview of Systems:Review of SystemsConstitutional: Negative. Negative for chills, fatigue and fever.HENT: Negative. Negative for sore throat.Eyes: Negative.Respiratory: Negative. Negative for cough and shortness of breath.Breasts: Negative.Cardiovascular: Negative. Negative for chest pain.Gastrointestinal: Positive for abdominal pain. Negative for anal bleeding, anorexia, blood in stool, constipation, diarrhea, flatus, hematemesis, hematochezia, melena, nausea, rectal pain and vomiting.Genitourinary: Negative. Negative for dysuria and hematuria.Musculoskeletal: Negative.Skin: Negative.Neurological: Negative.Psychiatric/Behavioral: Negative.All other systems reviewed and are negative.Endocrine: Endocrine negativePhysical Exam:ED Triage Vitals [12/28/23 0313]Weight 110.6 kg (243 lb 14.4 oz)Actual or estimated ActualHeight 1.727 m (5' 8")BP (!) 137/93Pulse 93Resp 16Temp 37 ?C (98.6 ?F)Temp source OralSpO2 97 %Measured on Room airPhysical ExamVitals and nursing note reviewed.Constitutional:General: He is not in acute distress.Appearance: Normal appearance. He is well-developed and normal weight. He is not ill-appearing, toxic-appearing or diaphoretic.HENT:Head: Normocephalic and atraumatic.Nose: Nose normal. No congestion or rhinorrhea.Mouth/Throat:Mouth: Mucous membranes are moist.Eyes:General: No scleral icterus.Right eye: No discharge.Left eye: No discharge.Extraocular Movements: Extraocular movements intact.Conjunctiva/sclera: Conjunctivae normal.Pupils: Pupils are equal, round, and reactive to light.Cardiovascular:Rate and Rhythm: Normal rate and regular rhythm.Heart sounds: Normal heart sounds.Pulmonary:Effort: Pulmonary effort is normal. No respiratory distress.Breath sounds: Normal breath sounds. No stridor. No wheezing, rhonchi or rales.Abdominal:General: Bowel sounds are normal. There is no distension.Palpations: Abdomen is soft. There is no mass.Tenderness: There is no abdominal tenderness. There is no right CVA tenderness, left CVA tenderness, guarding or rebound.Hernia: No hernia is present.Musculoskeletal:General: No swelling, tenderness, deformity or signs of injury. Normal range of motion.Cervical back: Normal range of motion and neck supple. No rigidity or tenderness.Lymphadenopathy:Cervical: No cervical adenopathy.Skin:General: Skin is warm and dry.Capillary Refill: Capillary refill takes less than 2 seconds.Coloration: Skin is not jaundiced or pale.Findings: No bruising, erythema, lesion or rash.Neurological:Mental Status: He is alert and oriented to person, place, and time. Mental status is at baseline.Cranial Nerves: No cranial nerve deficit.Sensory: No sensory deficit.Motor: No weakness.Coordination: Coordination normal.Gait: Gait normal.Deep Tendon Reflexes: Reflexes normal.Psychiatric:Behavior: Behavior normal.Thought Content: Thought content normal.Judgment: Judgment normal.Radiology:No orders to displayLab Results:Lab Results - No data to displayOrders and Treatments:No orders of the defined types were placed in this encounter.Orders Placed This EncounterMedicationsmaalox:diphenhydr AMINE:lidocaine 2 % viscous 1:1:1 (FIRST-MOUTHWASH BLM) oral suspension 15 mLdicyclomine (BENTYL) injection 20 mgFirst Provider Eval:ED EventsDate/Time Event User Rygwsljt66/10/24 0309 Medical Screening Begins CHAPITO CONTRERAS MD --12/28/23308 First Provider Evaluation CHAPITO CONTRERAS MD --ED COURSEDiagnosis/Impression as of 12/28/23 0414Epigastric painProcedures:ProceduresMDM:Medical Decision MakingJose Tyler Dumont is a 48 year old male who presents to the ED with epigastrici fullnessProblems Addressed:Epigastric pain: acute illness or injuryAmount and/or Complexity of Data ReviewedExternal Data Reviewed: notes.RiskOTC drugs.Prescription drug management.Risk Details: Will refer to GI/PCPFlowsheet Documentation:Scoring Tools:No data recordedDisposition/Condition:ED DispositionED DispositionDisch - HomeConditionStableComment--Discharge Medications:Patient's MedicationsSTART taking these medicationsNo medications on fileCONTINUE taking these medications which have NOT CHANGEDBENZONATATE 200 MG CAPSULE Take 1 capsule by mouth 3 (three) times daily as needed for Cough for up to 20 doses.MIEWOVMYUJ-WYUSJJWAEWWJJ-ABKS 50-325-40 MG TABLET Take 1 tablet by mouth every 6 (six) hours as needed (Headache).DICYCLOMINE 20 MG TABLET Take 1 tablet by mouth 3 (three) times daily as needed for Abdominal pain.DICYCLOMINE 20 MG TABLET Take 1 tablet by mouth 4 (four) times daily. Indications: abdominal painENALAPRIL 20 MG TABLET Take 25 mg by mouth daily.FAMOTIDINE (PEPCID) 20 MG TABLET Take 1 tablet by mouth 2 (two) times daily.FAMOTIDINE (PEPCID) 40 MG TABLET Take 1 tablet by mouth daily.IBUPROFEN 600 MG TABLET Take [...] these medicationsNo medications on fileFollow-up:Contact information for follow-upAllison Sanchez MDSpecialty: [facility]GA[facility]ERR[facility] AND NHDHZJJ[address]EA [address] [address]Kbnsg: [phone] signed by:Chapito Contreras MD12/28/23 0414 20374-5Uwcabacqv Emergency department GkopAP1625-84-53S86:14:14Physician Emergency department NoteTXT1.2.840.580392.1.13.104.2.7.2. 472434|[id number] for patient zewo56887-2Yyphordnc department NoteLNNARRATIVEFormatted C-CDA narrative text[address] ZcojMrmtplevcRfddwelipOHTS3768664386U SXVGTXOAWPAKELVYJVCUJ1907-88-41O79:14 :141.2.840.386133.1.72.3.15|1.2.840.1 88379.1.13.104.2.7.2.727879_[id number] 3 [facility] 2023-11-06 02:36:40 CmgQEsMlaWgZDlltzLtgroqOj7VK9D031bUuH wa/HR8sYTVhu1rUa5xuYMedWVrT6604-87-34 T02:36:40 Pt given printed and verbal discharge [...] with steady gait, in no apparent distress 12603-4Zpfdprakw department QvrgHE0607-20-08M78:37:39[facility] NoteTXT1.2.840.847001.1.13.104.2.7.2. 161040|[id number] for patient fkei85378-9XswaJBTALWAXWLAZdinmfbfy C-CDA narrative jvef592831164Xnxoqkm A Diaz RN[address]SgucEpkdgnadjIukfycmztOFTX8307204316Z BVIZDHPVSCQFVROPMVFNO3688-10-51A79:37 :391.2.840.840368.1.72.3.15|1.2.840.1 75187.1.13.104.2.7.2.727879_[id number] 8 Vira Huang RN [facility] 2023-11-05 23:47:32 UbJ9TFaEebNOJThI611t7mYg4Nhs3IXvMaquo RYQuyUx4BxBG6AaERHVcyTHQkfV5137-36-34 T23:47:32 Patient ambulatory to ED c/o abd pain that started yesterday. Patient went to PCP today and patient states no prescriptions were given. Patient states vomiting twice BUDGET REPORT CLERK. Last medication taken was Tylenol tonight.Patient is tearful in triage. 91864-0Mdcjamlxx department Triage pdwbQV9839-50-82U42:52:16[facility] Triage noteTXT1.2.840.865904.1.13.104.2.7.2. 188974|[id number] for patient pucv67187-8Jhcktcsdi department NoteLNNARRATIVEFormatted C-CDA narrative oqqp351292932Jfnrpv-Ztstw Santos LAZOUT[address]TXTX7755577555U FJDXFWQRMNUHBVCRZZIYV2913-05-34C01:52 :161.2.840.266894.1.72.3.15|1.2.840.1 62169.1.13.104.2.7.2.727879_[id number] 3 Sarina Santos RN [facility] 2023-11-01 04:18:58 vPqqNOemNo81zS+kUhRzyshh99AsemVQinakp hLjF9YPPL2/ln7M0iKwM7hBBmyJ2271-30-76 T04:18:58 Pt given printed and verbal discharge [...] with steady gait, in no apparent distress 45636-4Sywxjxbkh department EecuNV2132-15-41S47:19:28[facility] NoteTXT1.2.840.403725.1.13.104.2.7.2. 449496|[id number] for patient fgnp89333-4HreeKBVPSCCKRDDNboemewkj C-CDA narrative text[id number] KLFRHZBBUDKNPFGMDPKFO2187-98-28L29:19 :281.2.840.021843.1.72.3.15|1.2.840.1 19759.1.13.104.2.7.2.727879_[id number] 6 [facility] 2023-10-31 23:33:52 xMggO+ii4ff2WEYywJ3Zw5SX8V4n+vq3hCrk7 GwQ/eZKoKgMhW6XpCEaDU8ZcyKl8879-78-76 T23:33:52 Pt arrived c/o RLQ/epigastric abdominal pain, vomiting, and headache. Pain began yesterday.PMH: Gallbladder removed 2/3 years ago 21149-3Wxqglrhbb department Triage padhFR1958-36-25Z71:37:25[facility] Triage noteTXT1.2.840.093148.1.13.104.2.7.2. 470518|[id number] for patient zhev10459-6Ukyjzacir department NoteLNNARRATIVEFormatted C-CDA narrative textUT[address] GgxbEpbkvvjcyUqsqqhhzdWDBR8312816674Z UDRSHJEWJFJBEVEEKEQKI5734-05-73O89:37 :251.2.840.939212.1.72.3.15|1.2.840.1 39487.1.13.104.2.7.2.727879_[id number] 8 [facility] 2023-10-31 23:28:00 mieHKLbn1KxEcBkKCBsKEnoiqd1jWzfUVH2Po /1xQaHiJHzLZRif7IvJ3iCyiG1p6833-77-71 T23:28:00 [facility] Emergency Department NotePatient Name: Marysol Lazo of : 1975 48 year old maleTreatment Room: [facility]/TX2Owydtvp Record Number: [id number] Care Physician: PATIENT DOES NOT HAVE A PCPPatient Escorted by: Family [5]Mode of Arrival: Personal means [1]EMS Treatment Prior to ED Arrival:BUDGET REPORT CLERK treatment: NoneTravel and Exposure Screening:SymptomsDoes patient have [...] CHOLECYSTECTOMY N/A 08/29/2020Surgeon: Vaishali Vicente MD; [facility] [place]Testicular surgeryTONGUE TO LIP SURGERYTONSILLECTOMYReview of Systems:Review of [...] No obvious mass, no hernia sac, testicles-nl. [place], nontenderMusculoskeletal:General: Normal range of motion.Skin:General: Skin is [...] process identified in the abdomen or pelvis.RL: 460AFC: 92967Gsycalxkhbfovf signed by Chantal Lee MD, PhD at 11/01/2023 3:00 AMLab Results:Lab ResultsCOMP. METABOLIC PANEL (99185) - AbnormalResult Value Ref RangeNA 138 135 [...] U/LAST(SGOT) 33 13 - 40 U/LeGFR 118.8 mL/min/1.64l0CAW WITH DIFF - AbnormalWBC 11.54 (*) 4.20 [...] needed for Cough for up to 20 doses.NOCYOQIKOV-JEITSOOKNRGFK-IGFX 50-325-40 MG TABLET Take 1 tablet by [...] fileFollow-up:Electronically signed by:Jose Francisco Walters MD11/01/23 0332 28043-8Ncpkzfpdi Emergency department PomrHT2312-57-74S11:32:28Physician Emergency department NoteTXT1.2.840.128561.1.13.104.2.7.2. 044288|[id number] for patient lblt53646-2Zrbuueyiw department NoteLNNARRATIVEFormatted C-CDA narrative text[id number] AKOVUTZLJMKWFQWCEJWVO9794-77-63W63:32 :281.2.840.553335.1.72.3.15|1.2.840.1 95588.1.13.104.2.7.2.727879_[id number] 1 [facility] 2023-10-23 02:26:31 EqWgcQ9N77M17qONs+qWoDv9u52EcwTb1Lpg0 2rUqpFOAW4SFJ9hNxZ4DU7emwMN6878-16-07 T02:26:31 Pt given printed and verbal discharge [...] with steady gait, in no apparent distress. [address]-8Mhuafvtou[address] LjndCX0265-63-01X62:31:16[facility] NoteTXT1.2.840.009940.1.13.104.2.7.2. 527072|[id number] for patient guvb53346-1QupxUOFOPQWSMYOWtojtvege C-CDA narrative ggxp104165703Kdvgod D Roman RNUT[address] [id number] DOWVKLSXHARGUNLLEWQQN8114-46-98V65:31 :161.2.840.857601.1.72.3.15|1.2.840.1 87706.1.13.104.2.7.2.727879_[id number] 9 More Zamudio RN [facility] 2023-10-22 23:44:24 qaw6j3kyPgXhPZoTYkGZad7NNoeZGHjy8SFTK SWajW3U5N3ZBIBzUcCsdlLchdUe7076-82-99 T23:44:24 CC: Pt reports RLQ abd pain and 2 episodes of vomiting since morning. Pt has BM this morning was normal.PMHx: HTN, XP6Qkazz, alert, oriented, resp reg unlabored, skin warm, color appropriate for race, moves all ext without difficulty, amb with steady gait 12432-4Fqmohwsds department Triage uxqkVO2539-09-36R65:45:27[facility] Triage noteTXT1.2.840.184835.1.13.104.2.7.2. 739706|[id number] for patient vaio11711-5Jdhvxfzkm department NoteLNNARRATIVEFormatted C-CDA narrative textUT[address] OcmbQjwsypjzaChsiaugdrWFKK1763081739D YXTDUBEICEQJHKCOSZAFC5039-10-89U55:45 :271.2.840.315910.1.72.3.15|1.2.840.1 [id number] 5 [facility] 2023-10-22 23:33:00 9zsB6v0SgYlH9kzYdaKsaNNJIs0tnpufWYJof gi2vYZcNeihvbAFMEmcERcnSUi37685-54-41 T23:33:00 [facility] Emergency Department NotePatient Name: Marysol Lazo of : 1975 48 year old maleTreatment Room: IL2/CR1Jcgyska Record Number: [id number] Care Physician: PATIENT DOES NOT HAVE A PCPPatient Escorted by: Family [5]Mode of Arrival: Personal means [1]EMS Treatment Prior to ED Arrival:BUDGET REPORT CLERK treatment: Medication (comment)BUDGET REPORT CLERK treatment comments: 2 tylenol 2 hrs agoTravel [...] 3History provided by: Medical records and patientLanguage state wildlife officer used: NoAbdominal PainPain location: RLQPain quality: sharpPain [...] CHOLECYSTECTOMY N/A 08/29/2020Surgeon: Vaishali Vicente MD; [facility] [place]Testicular surgeryTONGUE TO LIP SURGERYTONSILLECTOMYReview of Systems:Review of [...] in the abdomen or pelvis.Normal appendix.RL: 460AF: [id number] signed by Chantal Lee MD, PhD at 10/23/2023 1:44 AMLab Results:Lab ResultsCOMP. METABOLIC PANEL (04390) - AbnormalResult Value Ref RangeNA 140 135 [...] U/LAST(SGOT) 33 13 - 40 U/LeGFR 107.0 mL/min/1.00i8MSY WITH DIFF - AbnormalWBC 11.85 (*) 4.20 [...] mg tabletFirst Provider Eval:ED EventsDate/Time Event User Lazofesx96/04/24 2353 Medical Screening Begins CHAPITO CONTRERAS MD --10/23/23 2353 First Provider Evaluation CHAPITO CONTRERAS MD --ED COURSEProcedures:ProceduresMDM:Medica l Decision MakingJose Tyler Dumont is a 48 year old male who presents to the ED with RLQ pain X 1 dayAmount and/or Complexity of Data ReviewedExternal Data Reviewed: radiology and notes.Labs: ordered. Decision-making details documented in ED Course.Radiology: ordered. Decision-making details documented in ED Course.RiskPrescription drug management.Parenteral controlled substances.Risk Details: Will refer to GI DrFlowsheet Documentation:Scoring Tools:No data recordedDisposition/Condition:ED DispositionED DispositionDisch - HomeConditionStableComment--Discharge Medications:Patient's MedicationsSTART taking these medicationsKETOROLAC 10 MG TABLET Take 1 tablet by mouth every 6 (six) hours as needed for Pain (scale 7-10).CONTINUE taking these medications which have NOT CHANGEDBENZONATATE 200 MG CAPSULE Take 1 capsule by mouth 3 (three) times daily as needed for Cough for up to 20 doses.NQIKCKWZFR-MSXIUHCECKVHY-YQVB 50-325-40 MG TABLET Take 1 tablet by [...] medicationsNo medications on fileFollow-up:Contact information for follow-upOmaira Chen, MDSpecialty: [id number] [facility] [place] [address]Injbx: [phone] signed by:Chapito Contreras MD10/23/23 0220 38608-0Zemwlgojw Emergency department CmseOS8832-02-38V09:20:23Physician Emergency department NoteTXT1.2.840.346581.1.13.104.2.7.2. 788604|[id number] for patient yljj02394-1Lqfayhacl department NoteLNNARRATIVEFormatted C-CDA narrative textUT[address] Zd[id number] CPZPEFWCWHDJSWYULPKVO0414-14-56I78:20 :231.2.840.730604.1.72.3.15|1.2.840.1 [id number] 7 [facility] 2023-07-07 05:55:19 04pm+dWNh/5UK//T7aJvU5UmF1j+Q3YxXqaIV p59lHw1n2MeJLSUc2IOt5JylB0Q6163-78-70 T05:55:19 Awake, alert oriented X4, respiratory even [...] ER noted upon dischargePt [facility]ulated [facility] the [facility] with steady gait 04399-6Teuerfxyv department UcziBF9180-63-84S58:56:11[facility] department NoteTXT1.2.840.172581.1.13.104.2.7.2. 575660|[id number] for patient iiaa18468-9KuczDBHMIZNYUD[id number] HUFMLEZAVZPLDFUELYWMC5681-07-53O30:56 :111.2.840.920187.1.72.3.15|1.2.840.1 [id number] 5 [facility] 2023-07-07 03:54:59 gCnhsFF5MdgX/Zcm9/1+ZM2vprF76KjqZc39s VaqCOByOCYJIwR/CCGTQK5C3+F/2023-07-07 T03:54:59 Pt states that he last night his blood pressure was running high and he has headache. 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 Pt state that he took his enalapril around 2300 last night. 27856-1Itffsutpc department Triage mozxLL8721-51-32E74:57:11[facility] department Triage noteTXT1.2.840.396008.1.13.104.2.7.2. 139527|[id number] for patient ylph86072-6Dlszweuss department Note[id number] CQWVJRIXITDMCAUGYNYDK2888-64-68P04:57 :111.2.840.691168.1.72.3.15|1.2.840.1 [id number] 6 [facility] 2023-07-07 03:49:00 KfSd36qoGcOpI4KrGCV79oiRusJen9ohXPtlT uLtY/k+uBbrKkaMwvZ4BjB14W9j7209-29-48 T03:49:00 [facility] Emergency Department NotePatient Name: Marysol Lazo of : 1975 47 year old maleTreatment Room: [address] Record Number: [id number] Care Physician: PATIENT DOES NOT HAVE A PCPPatient Escorted by: Self [9]Mode of Arrival: Personal means [1]EMS Treatment Prior to ED Arrival:BUDGET REPORT CLERK treatment: None Travel and Exposure Screening:SymptomsDoes patient [...] traumaHistory provided by: Patient and medical recordsLanguage state wildlife officer used: No HypertensionSeverity: ModerateOnset quality: SuddenDuration: 2 hoursTiming: SporadicChronicity: ChronicTime since last dose of antihypertensive: 2 hoursNotable BUDGET REPORT CLERK blood pressures: 198/112Context: normal sodium, not caffeine, [...] N/A 08/29/2020 Surgeon: Vaishali Vicente MD; Location: [facility] OR Location OTHER Testicular surgery TONGUE TO [...] display Lab Results:Lab Results COMP. METABOLIC PANEL (94404) - Abnormal Result Value Ref Range NA [...] Encounter Procedures TROPONIN I COMP. METABOLIC PANEL (53469) LIPASE, SERUM CBC WITH DIFF URINALYSIS Orders Placed This Encounter Medications ketorolac (TORADOL) injection 30 mg metoclopramide HCl (REGLAN) injection 10 mg wvoysxovkt-vzlmffeibefcv-ofiy 50-325-40 mg tablet First Provider Eval:ED Events [...] Discharge Medications:Patient's Medications START taking these medications MNNOQHRTAZ-BSTVMKORCPIDB-KKGC 50-325-40 MG TABLET Take 1 tablet by [...] for follow-up Ulises Carter MD Specialty: PN-NEUROLOGY [facility] AND [address] [address] Electronically signed by: Chapito Contreras MD07/07/23 0553 45930-0Iakxfvozx Emergency department OczuFW7217-21-56P31:53:28Physician Emergency department NoteTXT1.2.840.271007.1.13.104.2.7.2. 085906|[id number] for patient ryrc51315-1Zmqtouwdc department NoteLN[id number] QANSDMBRIQFDNEJOMGWOL7371-42-61H01:53 :281.2.840.739250.1.72.3.15|1.2.840.1 [id number] 1 [facility] 2023-05-25 22:36:27 jZArnWSyB+d1eS2gGfajdaUZRPijQKsgZhnFG q5XNMrtTjbqj6+fql4M6YukUngY1790-61-67 T22:36:27 Pt given printed and verbal discharge [...] with steady gait, in no apparent distress 17521-0Tsfowsnxn department MlykJS5135-18-04I15:37:47[facility] NoteTXT1.2.840.725193.1.13.104.2.7.2. 286613|[id number] for patient yaik64069-2WycaUF598653323Clqcyyt A Diaz RN[id number] CRKAYKXLKRFDGDJFSGYYG9832-45-02D27:37 :471.2.840.748197.1.72.3.15|1.2.840.1 [id number] 9 Vira Huang RN [facility] 2023-05-25 17:15:02 OOPdGvqaXmI6wr28JEcInDg1tsb7OlRHAIGEx TMFig4XIET0fUaUPW0K6601UcSK4192-32-86 T17:15:02 Pt arrived via private car with c/o chest pain that started about 3 hours BUDGET REPORT CLERK, EKG done in triage, PA assessing pt at this time. 83886-3Xxirjrhuq department Triage osbsCS9336-73-43K67:20:33[facility] Triage noteTXT1.2.840.237956.1.13.104.2.7.2. 183009|[id number] for patient ctmy78518-7Tudyilffv department [id number] L Barker RN[id number] RVEPICXHISDKXMRKVUYRN9916-93-42H98:20 :331.2.840.944760.1.72.3.15|1.2.840.1 [id number] 0 Shalini Nair RN [facility]
[2024-02-05] MEDS ORDERED: MORPHINE 4 MG/ML SYR ONE ×2 (00:39→03:20)
[2024-02-05] MEDS ORDERED: ONDANSETRON 4 MG/2 ML VIAL ONE (00:39)
[2024-02-05] MEDS ORDERED: FAMOTIDINE 20 MG/2 ML VIAL IV ONE (00:39)
[2024-02-05] MEDS ORDERED: KETOROLAC 30 MG/ML INJ ONE (00:39)
[2024-02-05] MEDS ORDERED: NA CHLORIDE 0.9% 2,000 ML ONE (00:40)
[2024-02-05] MEDS ORDERED: MORPHINE 2 MG/ML SYR ONE ×2 (01:01→03:20)
[2024-02-05 01:19] LABS: Specific Gravity 1.019 (1.005-1.030); Sqamous Epithelial <5 /HPF (None Seen); Urine Bacteria None Seen /HPF (<20); Urine Bilirubin NEGATIVE (Negative); Urine Blood 1+ (Negative); Urine Clarity Clear (Clear); Urine Color Light-Yellow (Yellow); Urine Culture Reflex Order NOT NEEDED; Urine Glucose NEGATIVE (Negative); Urine Ketones NEGATIVE (Negative); Urine Microscopic Reflex YN ORDER UMIC; Urine Mucus Slight /HPF (None Seen); Urine Nitrite NEGATIVE (Negative); Urine Protein NEGATIVE (Negative); Urine Urobilinogen Normal (Normal); Urine WBC <5 /HPF (<5); Urine pH 5.5 (5.0-7.0)
[2024-02-05 01:40] LABS: Absolute Basophils 0.1 K/uL (0-0.5); Absolute Eosinophils 0.2 K/uL (0-0.5); Absolute Lymphocytes (CBC) 2.5 K/uL (0.7-4.9); Absolute Monocytes 0.7 K/uL (0.1-1.3); Absolute Neutrophil 6.4 K/uL (1.8-8.0); Basophils % 0.7 % (0-1.3); Eosinophils % 1.6 % (0-4.4); Hematocrit 44.9 % (39.6-49.0); Hemoglobin 15.3 g/dL (13.6-17.9); Lymphocytes % 25.2 % (15.3-44.8); MCH 30.8 pg (27.0-35.0); MCV 90.6 fL (80-100); MPV 7.6 fL (7.6-11.3); Monocytes % 6.9 % (3.3-12.3); Neutrophils % 65.6 % (41.7-73.7); Nucleated Red Blood Cells % 0.2 % (0-0); Platelets 260 thou/uL (152-406); RBC Red Blood Cell Count 4.96 M/uL (4.33-5.43); Red Cell Distribution Width 13.8 % (12.1-15.2)
[2024-02-05 01:49] LABS: ALT/SGPT 23 U/L (16-61); AST/SGOT 13 U/L (15-37); Albumin 3.7 g/dL (3.4-5.0); Albumin/Globulin Ratio 0.9 (1.1-1.8); Alkaline Phosphatase 76 U/L (45-117); BUN Blood Urea Nitrogen 15 mg/dL (7-18); Bicarbonate 25 mEq/L (21-32); Bilirubin Total 0.4 mg/dL (0.2-1.0); Glomerular Filtration Rate 107 ml/min (=/>90); Glucose Level 114 mg/dL (74-106); Lipase 31 U/L (13-75); Protein, Total 7.7 g/dL (6.4-8.2); Sodium Level 135 mEq/L (136-145)
[2024-02-05 02:03] LABS: C-Reactive Protein < 2.90 mg/L (<3.00)
[2024-02-05] MEDS ORDERED: ASPIRIN 81 MG CHEWABLE TABLET ONE (03:20)
[2024-02-05 03:54] LABS: NT PRO-BNP 63 pg/mL (<125)
[2024-02-05] MEDS ORDERED: HEPARIN 5000 UNIT/ML 1 ML VIAL ONE (03:55)
[2024-02-05] MEDS ORDERED: HEPARIN/D5W 25,000 UNIT/500 ML BAG IV ONE (03:55)
[2024-02-05 03:56] LABS: PT Prothrombin Time 11.3 SECONDS (9.5-12.5); PTT, Activated Partial Thromb 32.7 SECONDS (24.3-36.9); Protime INR 1.03
--- NOTE | 2024-02-05 04:04 | EDPHYS ---
Physician Documentation [facility] Name: Carrington Dumont Age: 48 yrs Sex: Male : 1975 Arrival Date: 02/04/2024 Time: 23:12 Bed 18 Private MD: ED Physician Jadiel Rome HPI: 02/03 23:24 This 48 yrs old Male presents to ER via Unassigned with complaints of stomach sp4 pain with vomiting. 02/04 04:04 48-year-old male presents with acute onset of lower abdominal pain associated with sp4 vomiting. Concurrently patient complaining of intermittent chest pain. . Historical: - Allergies: 02/03 23:35 No Known Allergies; kl - Home Meds: 23:33 levothyroxine 125 mcg tab 1 tab once daily [Active]; enalapril maleate 10 mg Oral tab 1 kl tab once daily [Active]; - PMHx: 23:33 Hypertension; Hypothyroidism; kl - PSHx: 23:33 Cholecystectomy; kl - Immunization history:: Adult Immunizations not up to date. - Infectious Disease History:: Denies. - Social history:: Smoking status: Patient reports the use of cigarette tobacco products, smokes one pack cigarettes per day. - Family history:: not pertinent. ROS: 02/04 04:05 Constitutional: Negative for fever, chills, and weight loss, positive abdominal pain, sp4 positive vomiting, positive chest pain All other systems are negative, Exam: 01:37 Constitutional: This is a well developed, well nourished patient who is awake, alert, sp4 and in no acute distress. Head/Face: Normocephalic, atraumatic. Eyes: Pupils equal round and reactive to light, extra-ocular motions intact. Lids and lashes normal. Conjunctiva and sclera are not injected. Cornea within normal limits. Periorbital areas with no swelling, redness, or edema. ENT: Nares patent. No nasal discharge, no septal abnormalities noted. Tympanic membranes are normal and external auditory canals are clear. Oropharynx with no redness, swelling, or masses, exudates, or evidence of obstruction, uvula midline. Mucous membranes moist. Neck: Trachea midline, no thyromegaly or masses palpated, and no cervical lymphadenopathy. Supple, full range of motion without nuchal rigidity, or vertebral point tenderness. Chest/axilla: Normal chest wall appearance and motion. Nontender with no deformity. No lesions are appreciated. Cardiovascular: Regular rate and rhythm with a normal S1 and S2. No gallops, murmurs, or rubs. Normal PMI, no JVD. No pulse deficits. Respiratory: Lungs have equal breath sounds bilaterally, clear to auscultation and percussion. No rales, rhonchi or wheezes noted. No increased work of breathing, no retractions or nasal flaring. Abdomen/GI: Soft, with normal bowel sounds. No distension or tympany. No guarding or rebound. Positive RLQ tenderness with rebound Back: No spinal tenderness. No costovertebral tenderness. Skin: Warm, dry with normal turgor. Normal color with no rashes, no lesions, and no evidence of cellulitis. MS/ Extremity: Pulses equal, no cyanosis. Neurovascular intact. Full, normal range of motion. Neuro: Awake and alert, GCS 15, oriented to person, place, time, and situation. Cranial nerves II-XII grossly intact. Motor strength 5/5 in all extremities. Sensory grossly intact. Psych: Awake, alert, with orientation to person, place and time. Behavior, mood, and affect are within normal limits 04:05 ECG was reviewed by the Attending Physician. EKG 0 253 normal sinus rhythm at the sp4 rate of 71, normal EKG Vital Signs: 02/03 23:30 BP 152 / 107; Pulse 90; Resp 20; Temp 98.9(TE); Pulse Ox 97% on R/A; Weight 111.13 kg kl (R); Height 5 ft. 8 in. ; Pain 10/10; 02/04 01:00 BP 116 / 90; Pulse 75; Resp 16; Pulse Ox 92% on R/A; km8 01:30 BP 136 / 85; Pulse 77; Resp 16; Pulse Ox 92% on R/A; km8 02:00 BP 121 / 64; Pulse 73; Resp 18; Pulse Ox 92% on R/A; km8 02:30 BP 103 / 70; Pulse 72; Resp 16; Pulse Ox 92% on R/A; km8 03:00 BP 114 / 66; Pulse 73; Resp 18; Pulse Ox 92% on 2 lpm NC; km8 03:30 BP 140 / 86; Pulse 81; Resp 18; Pulse Ox 95% on 2 lpm NC; km8 04:00 BP 133 / 84; Pulse 77; Resp 18; Pulse Ox 96% on 2 lpm NC; km8 04:30 BP 139 / 75; Pulse 76; Resp 18; Pulse Ox 94% on 2 lpm NC; km8 05:30 BP 126 / 68; Pulse 72; Resp 16; Pulse Ox 94% on 2 lpm NC; km8 02/03 23:30 Body Mass Index 37.25 (111.13 kg, 172.72 cm) 02/03 23:30 Pain Scale: Adult kl Linda Coma Score: 01:00 Eye Response: spontaneous(4). Motor Response: obeys commands(6). Verbal Response: km8 oriented(5). Total: 15. MDM: 02/03 23:25 Patient medically screened. sp4 02/04 03:33 ED course: EXAM: CTAbdomen and Pelvis With Intravenous Contrast CLINICAL HISTORY: The sp4 patient is 48 years old and is Male; ABD PAIN TECHNIQUE: Axial computed tomography images of the abdomen and pelvis with intravenous contrast. Sagittal and coronal reformatted images were created and reviewed. This CT exam was performed using one or more of the following dose reduction techniques: automated exposure control, adjustment of the mA and/or kV according to patient size, and/or use of iterative reconstruction technique. COMPARISON: No relevant prior studies available. FINDINGS: Lung bases: Unremarkable. No mass. No consolidation. ABDOMEN: Liver: Unremarkable. No mass. Gallbladder and bile ducts: Gallbladder is surgically absent. No ductal dilation. Pancreas: Unremarkable. No mass. No ductal dilation. Spleen: Unremarkable. No splenomegaly. Adrenals: Unremarkable. No mass. Kidneys and ureters: Unremarkable. No solid mass. No hydronephrosis. Stomach and bowel: Scattered colonic diverticula. No obstruction. No mucosal thickening. PELVIS: Appendix: No findings to suggest acute appendicitis. Bladder: Unremarkable. Reproductive: Bilateral hydroceles. ABDOMEN and PELVIS: Intraperitoneal space: Unremarkable. No free air. No significant fluid collection. Bones/joints: No acute fracture. No dislocation. Soft tissues: Small fat-containing inguinal hernias. Vasculature: Unremarkable. No abdominal aortic aneurysm. Lymph nodes: Unremarkable. No enlarged lymph nodes. IMPRESSION: No acute finding in the abdomen/pelvis. Electronically signed by: Edouard Che MD 02/05/2024 03:08 AM. 04:02 Data reviewed: vital signs, nurses notes, old medical records, lab test result(s), EKG, sp4 radiologic studies, CT scan, plain films. 05:48 Differential Diagnosis altered mental status, sepsis, flu. ED course: EXAM: XR Chest, 1 sp4 View CLINICAL HISTORY: The patient is 48 years old and is Male; CHEST PAIN TECHNIQUE: Single view of the chest. COMPARISON: No relevant prior studies available. FINDINGS: Lungs: No pulmonary vascular congestion or consolidation. Pleural space: Unremarkable. No pneumothorax. Heart: Cardiomegaly. Mediastinum: Unremarkable. Bones/joints: No acute fracture visualized. Upper abdomen: No free air in the visualized upper abdomen. IMPRESSION: No acute cardiopulmonary process identified. 02/03 23:24 Order name: CBC with Diff; Complete Time: 03:26 sp4 02/03 23:24 Order name: CMP; Complete Time: 04:02 sp4 02/03 23:24 Order name: Lipase; Complete Time: 04:02 sp4 02/03 23:24 Order name: Urinalysis w/ reflexes; Complete Time: 01:29 sp4 02/04 00:33 Order name: C-Reactive Protein; Complete Time: 04:02 EDMS 02/04 02:46 Order name: Troponin High Sensitivity; Complete Time: 03:26 km8 02/04 03:27 Order name: Ptt, Activated; Complete Time: 04:02 sp4 02/04 03:27 Order name: PT-INR; Complete Time: 04:02 sp4 02/04 03:31 Order name: NT PRO-BNP; Complete Time: 04:02 EDMS 02/04 03:31 Order name: T4 Free; Complete Time: 04:02 EDMS 02/04 03:31 Order name: Thyroid Stimulating Hormone; Complete Time: 04:02 EDMS 02/04 04:09 Order name: Urinalysis w/ reflexes EDMS 02/04 04:09 Order name: CBC with Automated Diff EDMS 02/04 04:09 Order name: CBC with Automated Diff EDMS 02/04 04:09 Order name: Comprehensive Metabolic Panel EDMS 02/04 04:09 Order name: Comprehensive Metabolic Panel EDMS 02/04 04:09 Order name: Troponin High Sensitivity EDMS 02/04 04:09 Order name: Troponin High Sensitivity; Complete Time: 05:48 EDMS 02/04 04:09 Order name: Troponin High Sensitivity [facility] 02/04 04:09 Order name: Troponin High Sensitivity [facility] 02/03 23:24 Order name: CT Abd/Pelvis - IV Contrast Only [facility] 02/04 04:02 Order name: Chest Single View XRAY 4 02/04 02:47 Order name: EKG; Complete Time: 02:47 km8 02/04 04:09 Order name: CONS Physician Consult [facility] 02/03 23:24 Order name: IV Saline Lock; Complete Time: 00:24 [facility] 02/03 23:24 Order name: Labs collected and sent; Complete Time: 00:24 4 02/04 00:22 Order name: NPO; Complete Time: 00:29 [facility] 02/04 01:12 Order name: Labs - recollect needed; Complete Time: 01:26 pf1 02/04 02:47 Order name: EKG - Nurse/Tech; Complete Time: 02:56 km8 EC:05 Rate is 71 beats/min. Rhythm is regular, Normal Sinus Rhythm. QRS [place] is Normal. [place] sp4 interval is normal. QRS interval is normal. QT interval is normal. No Q waves. T waves are Inverted in leads III, aVF, V5, V6. No ST changes noted. Clinical impression: No evidence of ischemia. Interpreted by me. Reviewed by me. Administered Medications: 01:00 Drug: NS 0.9% IV 1000 ml IV at 1 bolus Per protocol; 1000 mL bolus Route: IV; Rate: 1 km8 bolus; Site: right antecubital; 02:00 Follow up: Response: No adverse reaction; IV Status: Completed infusion; IV Intake: km8 1000ml 01:00 Drug: Famotidine IVP 20 mg IVP once; dilute with 10 mL 0.9% NaCl; give over 2 minutes km8 Route: IVP; Site: right antecubital; 02:00 Follow up: Response: No adverse reaction 8 01:00 Drug: TORadol - Ketorolac IVP 15 mg IVP once Route: IVP; Site: right antecubital; km8 02:00 Follow up: Response: No adverse reaction; Pain is decreased 8 01:00 Drug: Ondansetron IVP 4 mg IVP once; over 2 minutes Route: IVP; Site: right antecubital;km8 02:00 Follow up: Response: No adverse reaction [facility] 01:00 Drug: morphine IVP or IV 6 mg IVP once over 4 mins Route: IVP; Infused Over: 4 mins; 8 Site: right antecubital; 01:30 Follow up: Response: No adverse reaction; Pain is decreased [facility] 01:00 Drug: NS 0.9% IV 1000 ml IV at 125 ml/hr continuous Route: IV; Rate: 125 ml/hr; Site: 8 right antecubital; 04:21 Follow up: IV Status: Infusion continued upon admission [facility] 03:24 Drug: morphine IVP or IV 6 mg IVP once over 4 mins Route: IVP; Infused Over: 4 mins; 8 Site: left forearm; 04:22 Follow up: Response: No adverse reaction; Pain is decreased [facility] 03:24 Drug: Aspirin PO Chewable Tablet 324 mg PO once; 81 mg tablets x 4 Route: PO; [facility] 04:22 Follow up: Response: No adverse reaction [facility] 04:08 Drug: Heparin (ME Drip) 12 units/kg/[place] - ([place] [address] units, D5W IV 500 ml) IV at [facility] calculated rate Per protocol; Max initial rate 1000 units/hr {Co-Signature: vc1 (Imani Smith RN).} Route: IV; Rate: calculated rate; Site: right hand; 04:42 Follow up: IV Status: Infusion continued upon admission [facility] 04:09 Drug: HEParin IV 5000 units IV at bolus once {Co-Signature: vc1 (Imani Smith RN).} 8 Route: IV; Rate: bolus; Site: right hand; 04:10 Follow up: IV Status: Completed infusion; IV Intake: 1ml [facility] Disposition Summary: 02/05/24 04:04 Hospitalization Ordered Notes: Hospitalization Status: Inpatient Admission sp4 Provider: Narciso Neely spTasha Location: Telemetry/MedSurg (Inpatient) sp4 Condition: Stable sp4 Problem: new sp4 Symptoms: have improved sp4 Bed/Room Type: Standard sp4 Room Assignment: 421(02/05/24 04:34) rv1 Diagnosis - Acute lower abdominal pain, non-STEMI, elevated troponin, acute coronary syndromesp4 Forms: - Medication Reconciliation Form sp4 - SBAR form sp4 - Leadership Thank You Letter sp4 Signatures: Dispatcher [employer] EDMS Danielle Pryor, RN RN kl Elsa Castelan, RN RN pf1 Keaton, Giovanna rv1 Jadiel Rome MD MD sp4 Kamryn Russell RN RN km8 Imani Smith RN vc1 Corrections: (The following items were deleted from the chart) 02/03 23:25 23:25 CBC+H.LAB.BRZ ordered. EDMS EDMS 23:25 23:25 COMPREHENSIVE METABOLIC PANEL+C.LAB.BRZ ordered. EDMS EDMS 23:25 23:25 LIPASE+C.LAB.BRZ ordered. EDMS EDMS 23:25 23:25 Urinalysis+U.LAB.BRZ ordered. EDMS EDMS 23:25 23:25 Abdomen Pelvis W Con+CT.RAD.BRZ ordered. EDMS EDMS 23:34 23:33 Allergies: PENICILLINS; [facility] 02/04 00:32 00:22 C-REACTIVE PROTEIN+C.LAB.BRZ ordered. EDMS EDMS 03:31 03:21 PROBNP+C.LAB.BRZ ordered. EDMS EDMS 03:31 03:21 THYROID STIMULAT HORMONE+C.LAB.BRZ ordered. EDMS EDMS 03:31 03:21 T4 FREE+C.LAB.BRZ ordered. EDMS EDMS 03:31 03:21 C-REACTIVE PROTEIN+C.LAB.BRZ ordered. EDMS EDMS 04:34 04:04 sp4 rv1
--- NOTE | 2024-02-05 04:04 | ER ---
Nurse's Notes [facility] Name: Carrington Dumont Age: 48 yrs Sex: Male : 1975 Arrival Date: 02/04/2024 Time: 23:12 Bed 18 Private MD: Diagnosis: Acute lower abdominal pain, non-STEMI, elevated troponin, acute coronary syndrome Presentation: 02/03 23:30 Coronavirus screen: Vaccine status: Patient reports receiving the 2nd dose of the covid kl vaccine. Ebola Screen: Patient negative for fever greater than or equal to 101.5 degrees Fahrenheit, and additional compatible Ebola Virus Disease symptoms. Initial Sepsis Screen: Does the patient meet any 2 criteria? No. Patient's initial sepsis screen is negative. Does the patient have a suspected source of infection? No. Patient's initial sepsis screen is negative. Risk Assessment: Do you want to hurt yourself or someone else? Patient reports no desire to harm self or others. Onset of symptoms was February 02, 2024. 23:30 Method Of Arrival: Ambulatory 23:30 Acuity: DAYANNA 3 kl 23:37 Chief complaint: Patient states: right lower abdominal pain x 2 days 3 episodes of kl emesis. Triage Assessment: 23:34 General: Appears uncomfortable, Behavior is calm, cooperative. GI: Reports kl constipation, vomiting. 23:36 Pain: Complains of pain in abdomen and right lower quadrant. kl Historical: - Allergies: 23:35 No Known Allergies; kl - Home Meds: 23:33 levothyroxine 125 mcg tab 1 tab once daily [Active]; enalapril maleate 10 mg Oral tab 1 kl tab once daily [Active]; - PMHx: 23:33 Hypertension; Hypothyroidism; kl - PSHx: 23:33 Cholecystectomy; kl - Immunization history:: Adult Immunizations not up to date. - Infectious Disease History:: Denies. - Social history:: Smoking status: Patient reports the use of cigarette tobacco products, smokes one pack cigarettes per day. - Family history:: not pertinent. Screenin/18 00:25 [facility] ED Fall Risk Assessment (Adult) History of falling in the last 3 months, pf1 including since admission No falls in past 3 months (0 pts) Confusion or Disorientation No (0 pts) Intoxicated or Sedated No (0 pts) Impaired Gait No (0 pts) Mobility Assist Device Used No (0 pt) Altered Elimination No (0 pt) Score/Fall Risk Level 0 - 2 = Low Risk Oriented to surroundings, Maintained a safe environment, Educated pt \T\ family on fall prevention, incl call for assistance when getting out of bed, Assessed \T\ reinforced patient's understanding of fall precautions, Provided non-skid footwear, Hourly rounding (assess needs \T\ fall precautionary measures) done, Used ambulatory aids as needed (educated on \T\ assisted with), Used gait belt as appropriate. Abuse screen: Denies threats or abuse. Nutritional screening: No deficits noted. Tuberculosis screening: No symptoms or risk factors identified. Assessment: 01:00 Reassessment: Patient appears in no apparent distress at this time. General: Appears in km8 no apparent distress. uncomfortable, Behavior is calm, cooperative, appropriate for age. Pain: Complains of pain in right lower quadrant. Neuro: Level of Consciousness is awake, alert, obeys commands, Oriented to person, place, time, situation. Cardiovascular: Denies chest pain, shortness of breath, Patient's skin is warm and dry. Respiratory: Airway is patent Respiratory effort is even, unlabored, Respiratory pattern is regular, symmetrical. GI: Abdomen is obese, Abdomen is tender to palpation in right lower quadrant Reports lower abdominal pain. : No signs and/or symptoms were reported regarding the genitourinary system. EENT: No signs and/or symptoms were reported regarding the EENT system. Derm: No signs and/or symptoms reported regarding the dermatologic system. Skin is intact, is healthy with good turgor, Skin is dry, Skin is pink, warm \T\ dry. normal, Skin temperature is warm. Musculoskeletal: No signs and/or symptoms reported regarding the musculoskeletal system. Range of motion: intact in all extremities. 02:10 Reassessment: Patient appears in no apparent distress at this time. No changes from km8 previously documented assessment. Patient and/or family updated on plan of care and expected duration. Pain level reassessed. Patient is alert, oriented x 3, equal unlabored respirations, skin warm/dry/pink. 02:35 Reassessment: pt reports sharp intermittent chest pain; Dr. Rome notified, EKG km8 done and Troponin added-on to current blood work. 03:00 Reassessment: Patient appears in no apparent distress at this time. No changes from km8 previously documented assessment. Patient and/or family updated on plan of care and expected duration. Pain level reassessed. Patient is alert, oriented x 3, equal unlabored respirations, skin warm/dry/pink. 04:00 Reassessment: Patient appears in no apparent distress at this time. No changes from km8 previously documented assessment. Patient and/or family updated on plan of care and expected duration. Pain level reassessed. Patient is alert, oriented x 3, equal unlabored respirations, skin warm/dry/pink. Vital Signs: 02/03 23:30 BP 152 / 107; Pulse 90; Resp 20; Temp 98.9(TE); Pulse Ox 97% on R/A; Weight 111.13 kg kl (R); Height 5 ft. 8 in. ; Pain 07/29; 02/04 01:00 BP 116 / 90; Pulse 75; Resp 16; Pulse Ox 92% on R/A; km8 01:30 BP 136 / 85; Pulse 77; Resp 16; Pulse Ox 92% on R/A; km8 02:00 BP 121 / 64; Pulse 73; Resp 18; Pulse Ox 92% on R/A; km8 02:30 BP 103 / 70; Pulse 72; Resp 16; Pulse Ox 92% on R/A; km8 03:00 BP 114 / 66; Pulse 73; Resp 18; Pulse Ox 92% on 2 lpm NC; km8 03:30 BP 140 / 86; Pulse 81; Resp 18; Pulse Ox 95% on 2 lpm NC; km8 04:00 BP 133 / 84; Pulse 77; Resp 18; Pulse Ox 96% on 2 lpm NC; km8 04:30 BP 139 / 75; Pulse 76; Resp 18; Pulse Ox 94% on 2 lpm NC; km8 05:30 BP 126 / 68; Pulse 72; Resp 16; Pulse Ox 94% on 2 lpm NC; km8 02/03 23:30 Body Mass Index 37.25 (111.13 kg, 172.72 cm) 02/03 23:30 Pain Scale: Adult kl Linda Coma Score: 01:00 Eye Response: spontaneous(4). Motor Response: obeys commands(6). Verbal Response: km8 oriented(5). Total: 15. ED Course: 02/03 23:14 Patient arrived in ED. ra3 23:24 Jadiel Rome MD is Attending Physician. sp4 23:33 Triage completed. kl 02/04 00:20 No provider procedures requiring assistance completed. Inserted saline lock: 22 gauge pf1 in right antecubital area, using aseptic technique. Blood collected. 00:20 Initial lab(s) drawn, by me, sent to lab. Urine collected: clean catch specimen, clear. pf1 00:25 CBC with Diff Sent. pf1 00:25 CMP Sent. pf1 00:25 Lipase Sent. pf1 00:25 Urinalysis w/ reflexes Sent. pf1 00:29 Kamryn Russell, VIOLET is Primary Nurse. km8 01:00 Patient has correct armband on for positive identification. Bed in low position. Call km8 light in reach. Side rails up X 1. Pulse ox on. NIBP on. 01:00 Arm band placed on right wrist. km8 01:26 Inserted saline lock: 20 gauge in left forearm, using aseptic technique. Blood km8 collected. 02:[address] km8 02:20 CT Abd/Pelvis - IV Contrast Only In Process Unspecified. EDMS 02:56 EKG done, by ED staff, reviewed by Jadiel Rome MD. km8 03:45 Inserted saline lock: 22 gauge in right hand, using aseptic technique. km8 04:03 Narciso Neely MD is Hospitalizing Provider. sp4 04:15 Patient admitted, IV remains in place. km8 04:15 Provided Education on: admission process. km8 Administered Medications: 01:00 Drug: NS 0.9% IV 1000 ml IV at 1 bolus Per protocol; 1000 mL bolus Route: IV; Rate: 1 km8 bolus; Site: right antecubital; 02:00 Follow up: Response: No adverse reaction; IV Status: Completed infusion; IV Intake: km8 1000ml 01:00 Drug: Famotidine IVP 20 mg IVP once; dilute with 10 mL 0.9% NaCl; give over 2 minutes km8 Route: IVP; Site: right antecubital; 02:00 Follow up: Response: No adverse reaction km8 01:00 Drug: TORadol - Ketorolac IVP 15 mg IVP once Route: IVP; Site: right antecubital; km8 02:00 Follow up: Response: No adverse reaction; Pain is decreased 01:00 Drug: Ondansetron IVP 4 mg IVP once; over 2 minutes Route: IVP; Site: right antecubital;km8 02:00 Follow up: Response: No adverse reaction 01:00 Drug: morphine IVP or IV 6 mg IVP once over 4 mins Route: IVP; Infused Over: 4 mins; 8 Site: right antecubital; 01:30 Follow up: Response: No adverse reaction; Pain is decreased 01:00 Drug: NS 0.9% IV 1000 ml IV at 125 ml/hr continuous Route: IV; Rate: 125 ml/hr; Site: 8 right antecubital; 04:21 Follow up: IV Status: Infusion continued upon admission [facility] 03:24 Drug: morphine IVP or IV 6 mg IVP once over 4 mins Route: IVP; Infused Over: 4 mins; 8 Site: left forearm; 04:22 Follow up: Response: No adverse reaction; Pain is decreased [facility] 03:24 Drug: Aspirin PO Chewable Tablet 324 mg PO once; 81 mg tablets x 4 Route: PO; 8 04:22 Follow up: Response: No adverse reaction 8 04:08 Drug: Heparin (ID Drip) 12 units/kg/[place] - ([place] [address] units, D5W IV 500 ml) IV at km8 calculated rate Per protocol; Max initial rate 1000 units/hr {Co-Signature: vc1 (Imani Smith RN).} Route: IV; Rate: calculated rate; Site: right hand; 04:42 Follow up: IV Status: Infusion continued upon admission 8 04:09 Drug: HEParin IV 5000 units IV at bolus once {Co-Signature: vc1 (Imani Smith RN).} km8 Route: IV; Rate: bolus; Site: right hand; 04:10 Follow up: IV Status: Completed infusion; IV Intake: 1ml Medication: 01:12 VIS not applicable for this client. 8 Intake: 02:00 IV: 1000ml; Total: 1000ml. 04:10 IV: 1ml; Total: 1001ml. 8 Outcome: 04:04 Decision to Hospitalize by Provider. sp4 05:54 Admitted to Med/surg accompanied by nurse, via wheelchair, room 421, with chart, Report km8 called to faxed to 4th floor 05:54 Condition: stable 05:54 Instructed on the need for admit, Demonstrated understanding of instructions, 05:54 Patient left the ED. km8 Signatures: Dispatcher [employer] EDDanielle Guerrero RN RN kl Finley, Pamala, RN RN pf1 Jadiel Rome MD MD sp4 Kamryn Russell RN RN km8 April Dugan ra3 Imani Smith RN vc1 Corrections: (The following items were deleted from the chart) 02/03 23:34 23:33 Allergies: PENICILLINS; [facility] 23:37 23:30 Chief complaint: Patient states: left lower abdominal pain x 2 days reports 3 kl episodes of emesis today kl 23:37 23:34 Pain: Complains of pain in right lower quadrant [facility] 02/04 00:00 02/03 23:30 BP 152 / 10; Pulse 90bpm; Resp 20bpm; Pulse Ox 97% RA; Temp 98.9F Temporal; kl 111.13 kg Reported; Height 5 ft. 8 in.; BMI: 37.2; Pain 10/10, Adult; kl
--- NOTE | 2024-02-05 05:37 | P.HP ---
Certification for Inpatient Patient admitted to: Observation With expected LOS: <2 Midnights Practitioner: I am a practitioner with admitting privileges, knowledge of patient current condition, hospital course, and medical plan of care. Services: Services provided to patient in accordance with Admission requirements found in Title 42 Section 412.3 of the Code of Federal Regulations Patient History Date of Service: 02/05/24 Reason for admission: Chest Pain History of Present Illness: 48 yrs old Male with past medical history of hypertension, hyperlipidemia, hypothyroidism, DM , obesity, history of cholecystitis status post cholecystectomy who came to ER with abdominal pain and chest discomfort associated with nausea and vomiting which started yesterday and has been progressively worsening. At the time of interview abdominal pain resolved patient still complains of chest pain. Retrosternal location. No radiation. Not associated with any diaphoresis. Is always some nausea but no vomiting now. No fever or chills. Denies any shortness of breath. No relationship with exercise or change of positions. No sick contacts. Patient was assessed in the ER and was found to have NSTEMI and was admitted for further management Allergies No Known Allergies Allergy (Unverified 11/15/23 03:27) Home medications list reviewed: Yes - Past Medical/Surgical History Diabetic: Yes -: DM -: HTN -: HYPOTHYROIDISM -: RAMIRO - Family History Family History: Reviewed- Non-Contributory - Social History Smoking Status: Never smoker Alcohol use: No CD- Drugs: No Caffeine use: Yes Review of Systems 10-point ROS is otherwise unremarkable Physical Examination - Vital Signs Temperature: 98.4 F Blood Pressure: 138/76 Pulse: 76 Respirations: 18 Pulse Ox (%): 96 - Physical Exam General: Alert, In no apparent distress, Oriented x3, Obese HEENT: Atraumatic, Normocephalic Neck: Supple Respiratory: Clear to auscultation bilaterally, Normal air movement Cardiovascular: Normal pulses, Regular rate/rhythm, Normal S1 S2 Capillary refill: <2 Seconds Gastrointestinal: Soft and benign, W/out hepatosplenomegaly Musculoskeletal: No clubbing, No swelling Integumentary: No rashes, No significant lesion Neurological: Normal speech, Normal strength at 5/5 x4 extr, Normal tone, Cranial nerves 3-12 intact Lymphatics: No axilla or inguinal lymphadenopathy - Studies Laboratory Data (last 24 hrs) 02/05/24 02/05/24 02/05/24 03:30 01:26 01:26 WBC 9.80 Hgb 15.3 Hct 44.9 Plt Count 260 PT 11.3 INR 1.03 APTT 32.7 Sodium 135 L Potassium 4.0 BUN 15 Creatinine 0.88 Glucose 114 H Total Bilirubin 0.4 AST 13 L ALT 23 Alkaline Phosphatase 76 Lipase 31 Assessment and Plan - Problems (Diagnosis) (1) NSTEMI (non-ST elevated myocardial infarction) Current Visit: Yes Status: Acute Plan: NSTEMI Will trend cardiac enzymes Will monitor telemetry Started on aspirin and statin EKG did not show any acute changes suggestive of ischemia Cardiology consult Hypertension Antihypertensives titrated Continue home medications and titrate as needed Hyperlipidemia Continue statin Diabetes Insulin sliding scale Accu-Chek ACHS Will get an A1c in a.m. Hyponatremia IV hydration Monitor sodium levels Electrolytes monitor and replace Abdominal pain Getting a CT of the abdomen pelvis Abdominal pain resolved for now Pain control Obesity Advise lifestyle modification GI/DVT prophylaxis Advanced directive full code - Advance Directives Does patient have a Living Will: No Does patient have a Durable POA for Healthcare: No - Code Status/Comfort Care Code Status: Full Code Time Spent Managing Pts Care (In Minutes): 48
[2024-02-05] MEDS: NA CHLORIDE 0.9% 500 ML IV ONE (05:39)
[2024-02-05] MEDS ORDERED: GLUCAGON 1 MG/VIAL IM PRN (05:39)
[2024-02-05] MEDS ORDERED: D50W 25 GM/50 ML SYRINGE IV PRN (05:39)
[2024-02-05] MEDS ORDERED: D10W 125 ML IV PRN (06:05)
[2024-02-05 06:23] VITALS: BMI 37.0
[2024-02-05] MEDS: INSULIN REGULAR (HUMAN) 100 UNIT/ML SQ SCH (07:30)
[2024-02-05] MEDS: ASPIRIN EC 81 MG TAB PO SCH (07:48)
[2024-02-05] MEDS: MORPHINE 2 MG/ML SYR IV PRN (07:48)
--- NOTE | 2024-02-05 07:58 | RAD REPORT ---
EXAM DESCRIPTION: CT - Abdomen Pelvis W Contrast - 02/05/2024 6:43 am CLINICAL HISTORY: Abdominal pain COMPARISON: none. TECHNIQUE: Computed axial tomography of the abdomen pelvis was obtained. 100 cc Isovue-300 was admin istered intravenously. Oral contrast was not requested which limits evaluation of bowel and appendix All CT scans are performed using dose optimization technique as appropriate and may include automated exposure control or mA/KV adjustment according to patient size. FINDINGS: The liver, spleen, pancreas, adrenal and kidneys appear unremarkable. There is no evidence of diverticulitis. IMPRESSION: No acute abnormality is displayed.
[2024-02-05] MEDS ORDERED: HEPARIN/D5W 25,000 UNIT/500 ML BAG IV SCH (08:00)
[2024-02-05] MEDS ORDERED: ENOXAPARIN 40 MG/0.4 ML SQ SCH (09:00)
--- NOTE | 2024-02-05 13:18 | P.PN ---
Date of Service: 02/05/24 Patient seen and examined. He had mild troponin elevation. Patient has significant risk factors for coronary artery disease-morbid obesity, hypertension. Patient seen by cardiology and plan for cardiac cath today. Analgesics as needed. Aspirin, Lipitor. He is on heparin drip.
[2024-02-05 13:50] LABS: HDL Cholesterol 35 mg/dL (40-60)
[2024-02-05 13:59] LABS: Troponin High Sensitivity 68.1 pg/mL (<58.9)
[2024-02-05 14:12] LABS: LDL, Direct 128 mg/dL (100-129)
--- NOTE | 2024-02-05 19:32 | RAD REPORT ---
EXAM DESCRIPTION: RAD - Chest Single View - 02/05/2024 5:32 am CLINICAL HISTORY: The patient is 48 years old and is Male; CHEST PAIN TECHNIQUE: Single view of the chest. COMPARISON: No relevant prior studies available. FINDINGS: Lungs: No pulmonary vascular congestion or consolidation. Pleural space: Unremarkable. No pneumothorax. Heart: Cardiomegaly. Mediastinum: Unremarkable. Bones/joints: No acute fracture visualized. Upper abdomen: No free air in the visualized upper abdomen. IMPRESSION: No acute cardiopulmonary process identified. Electronically signed by: Radha Mccormick MD 02/05/2024 05:44 AM CDT Due to temporary technical issues with the PACS/Fluency reporting system, reports are being signed by the in house radiologists without review as a courtesy to insure prompt reporting. The interpreting radiologist is fully responsible for the content of the report.
[2024-02-05] MEDS: Enoxaparin 120 MG/0.8 ML SYR SQ ONE (21:58)
[2024-02-05] MEDS: ATORVASTATIN 40 MG TAB PO SCH (21:58)
[2024-02-05] MEDS: ACETAMINOPHEN 325 MG TABLET PO PRN (22:00)
[2024-02-06] MEDS ORDERED: HEPA 1000U/500MLS 2,000 UNIT/1,000 ML BAG IV ONE (06:09)
[2024-02-06] MEDS ORDERED: VERAPAMIL HCL 10 MG/4 ML VIAL IV ONE (06:09)
[2024-02-06] MEDS ORDERED: LIDOCAINE 1% 20 ML MDV ONE (06:09)
[2024-02-06] MEDS ORDERED: NITROGLYCERIN/D5W 50 MG/250 ML BTL IV ONE (06:09)
[2024-02-06] MEDS ORDERED: MIDAZOLAM HCL 2 MG/2 ML INJ ONE (06:10)
[2024-02-06] MEDS ORDERED: FENTANYL CITR 100 MCG/2 ML ONE (06:10)
[2024-02-06] MEDS ORDERED: TICAGRELOR 90 MG TABLET PO ONE (06:10)
[2024-02-06] MEDS ORDERED: HEPARIN 5000 UNIT/ML 1 ML VIAL ONE (06:10)
[2024-02-06] MEDS ORDERED: ASPIRIN 325 MG TAB ONE (06:11)
[2024-02-06] MEDS ORDERED: HEPARIN 10,000 UNIT/10 ML VIAL IV ONE (06:11)
[2024-02-06] MEDS ORDERED: CLOPIDOGREL 75 MG TABLET ONE (06:11)
[2024-02-06] MEDS ORDERED: NA CHLORIDE 0.9% 500 ML ONE (06:26)
[2024-02-06 06:42] LABS: Absolute Basophils 0.1 K/uL (0-0.5); Absolute Eosinophils 0.2 K/uL (0-0.5); Absolute Lymphocytes (CBC) 2.8 K/uL (0.7-4.9); Absolute Monocytes 0.6 K/uL (0.1-1.3); Absolute Neutrophil 4.9 K/uL (1.8-8.0); Basophils % 0.9 % (0-1.3); Eosinophils % 1.9 % (0-4.4); Hematocrit 46.2 % (39.6-49.0); Hemoglobin 15.7 g/dL (13.6-17.9); Lymphocytes % 32.8 % (15.3-44.8); MCH 30.9 pg (27.0-35.0); MCV 90.7 fL (80-100); MPV 7.9 fL (7.6-11.3); Monocytes % 6.8 % (3.3-12.3); Neutrophils % 57.6 % (41.7-73.7); Nucleated Red Blood Cells % 0.1 % (0-0); Platelets 271 thou/uL (152-406); RBC Red Blood Cell Count 5.09 M/uL (4.33-5.43)
[2024-02-06 07:13] LABS: Albumin 3.7 g/dL (3.4-5.0); Albumin/Globulin Ratio 0.9 (1.1-1.8); Anion Gap 8.2 mEq/L (5.0-15.0); Bilirubin Total 0.4 mg/dL (0.2-1.0); Globulin 4.1 g/dL (2.3-3.5); Potassium 4.2 mEq/L (3.5-5.1); Protein, Total 7.8 g/dL (6.4-8.2)
[2024-02-06] MEDS ORDERED: FAMOTIDINE 20 MG TAB ONE (07:43)
[2024-02-06] MEDS: ONDANSETRON 4 MG/2 ML VIAL ONE (08:59)
[2024-02-06] MEDS: ONDANSETRON 4 MG/2 ML VIAL IV PRN (09:01)
--- NOTE | 2024-02-06 18:08 | OP ---
Date of Procedure: 02/06/2024 Surgeon: LUKE HARRELL Procedures Performed: 1.Selective coronary angiogram. 2.Left heart catheterization. 3.PCI of critical mid RCA stenosis, I used 4.0 x 60 mm Synergy drug-eluting stent. Indication: [id number] myocardial infarction. Access: Right radial artery 6-Sudanese closed with TR band. Complications: None. Bleeding: Less than 50 mL. Anesthesia: Total sedation time was 45 minutes. Description Of Procedure: After risks, benefits, and alternatives were explained, patient agreed to procedure and signed informed consent. The patient was brought into the cardiac catheterization [facility], prepped and draped in the usual sterile fashion. Then I accessed right radial artery using p KitBoost micropuncture kit, placed a 6-Sudanese Slender sheath, took 5-Sudanese [place] 4.0 catheter over a J-wire into the aortic root and across the aortic valve over the wire, I measured the LVEDP. Pullba ck did not record any gradient. Then I engaged the left main, took standard views, and then in the R CA, took standard views and then gave systemic heparin to assure ACT level above 250 and loaded with 600 mg of Plavix and 325 mg of aspirin and took a 6-Sudanese JR4 guide with side holes into the aortic root, engaged the RCA and took a Runthrough wire into the RCA, placed it distally and then using a 4. 0 balloon, the lesion was pre-dilated and expanded very well and then placed a 4.0 x [address] ug-eluting stent in the mid RCA stenosis to high pressure to give a size of 4.3 mm, excellent apposit ion and expansion, reducing the stenosis to 0% and SAVI-3 flow at the end and then I removed the wire and final angiogram was somewhat satisfactory and then removed the guide and removed the sheath and placed TR band with good hemostasis. Findings: 1.Left main; diffuse 20% stenosis. 2.LAD; proximal segment is normal, mid segment 40% to 50%, mid to distal 50%, and distal focal 70% s tenosis. Diagonal branches are with luminal irregularities. 3.Left circumflex; moderate-size, proximal 50% and then mid 60%. OM branch has 50% proximally. 4.RCA; large and dominant. Proximal 50%, mid 99% stenosis, status post successful PCI as above. 5.Elevated LVEDP at 24 mmHg. Conclusion: 1.Critical mid RCA stenosis, which is the culprit for the NC, status post successful PCI as above. 2.Moderate coronary artery disease elsewhere. 3.Elevated LVEDP. Recommendation: 1.Aspirin, Plavix, high-dose statin. 2.Cardiac risk factor modification and diuretics as his LVEDP is very high. SR/MODL Voice ID: [id number] Report ID: [id number]
--- NOTE | 2024-02-06 18:18 | P.PN ---
Subjective Date of Service: 02/06/24 Chief Complaint: Chest Pain Patient denies any complaint. Status post cardiac catheterization today. Physical Examination - Vital Signs Temperature: 98.2 F Blood Pressure: 106/72 Pulse: 81 Respirations: 18 Pulse Ox (%): 95 Assessment And Plan - Plan Physical examination General: Alert and oriented x3, NAD, morbidly obese. Neck: Supple, no elevated JVD Heart: Heart sounds 1 and 2 normal, regular rhythm, normal rate, no pedal edema Lungs: Clear to auscultation bilaterally, adequate breath sounds bilaterally, no rhonchi or crackles. Abdomen: Soft, nondistended, nontender, normal bowel sounds. Extremities: No tenderness, no deformity Skin: Normal skin turgor, no rash, no nodules or ulcers. Neuro: No focal motor deficit. Normal speech. Psychiatry: Normal mood, no agitation. Diagnosis NSTEMI (non-ST elevated myocardial infarction) Morbid obesity Diabetes mellitus type 2 Essential hypertension Hyperlipidemia Plan NSTEMI Cardiac enzymes mildly elevated Patient treated with heparin drip, aspirin and statin He was seen by cardiology Dr. Khan Status post cardiac catheterization, cardiac stent placed. Aspirin and Plavix, statin. Beta-rupert as patient's blood pressure will tolerate. Hypertension Hold antihypertensives as patient's blood pressures currently soft. Will use metoprolol for BP control if he becomes hypertensive. Hyperlipidemia Continue statin Patient with significant hypertriglyceridemia. Start Tricor. Diabetes mellitus Insulin sliding scale Accu-Chek ACHS Hyponatremia Mild. Monitor sodium levels Monitor electrolytes and replace as needed. Abdominal pain Abdominal pain resolved for now CT abdomen pelvis shows no acute abnormality. Obesity Weight loss by diet and exercise advised. DVT prophylaxis: Lovenox Advanced directive: full code
--- NOTE | 2024-02-06 19:55 | CON ---
Date of Consultation: 02/06/2024 Reason For Consultation: Chest pain. History Of Present Illness: 48-year-old male, history of hypertension, dyslipidemia, hypothyroidism, diabetes, presented to the emergency room with chest pain, left-sided, started with nausea and diaph oresis, radiates to the shoulder, neck, and lasted for about 30 to 45 minutes and resolved. Troponin was slightly elevated. Past Medical History: As outlined above. Medications: Refer to reconciliation sheet for detailed list. Allergies: NO KNOWN DRUG ALLERGIES. Family History: No premature coronary artery disease or cancer. Social History: Does not smoke or drink. Does not use any drugs. Review of Systems: All systems reviewed and they were negative except as mentioned in the HPI. Physical Examination: Vital Signs: Reviewed. Head and Neck: Pupils are equal, reactive to light. Intact eye movements. No JVD. No cervical lym phadenopathy. Neck is supple. Thyroid is not enlarged. Lungs: Clear to auscultation bilaterally. No rhonchi, wheezing, or crackles. No accessory muscle u se. Heart: Regular rate and rhythm. No extra sounds. Abdomen: Soft, nontender. Bowel sounds positive. No organomegaly. No masses or hernia. No rigidi ty or rebound. Extremities: No edema, clubbing, or cyanosis. Intact pulses. Skin: No rash. No nodule. Neurologic: Alert, awake, oriented x3. No acute focal deficits appreciated. Investigations: Troponin is in the 80s range; 88, 77, and 68. BUN is 13, creatinine 0.79, and hemog lobin is 15.7. Assessment And Recommendations: 1.[id number] myocardial infarction, very typical symptoms. NPO, plan for coronary angiogram a nd keep him on baby aspirin and heparin until the heart cath is done. 2.Dyslipidemia. Continue Lipitor 40 mg q.h.s. SR/MODL Voice ID: [id number] Report ID: [id number]
[2024-02-07 06:22] VITALS: O2SAT 100
[2024-02-07] MEDS: FENOFIBRATE 160 MG TAB PO SCH (08:46)
[2024-02-07] MEDS: CLOPIDOGREL 75 MG TABLET PO SCH (08:46)
[2024-02-07 11:06] VITALS: BP 135/67; TEMP 98.4
--- NOTE | 2024-02-07 12:16 | P.DS ---
Admission Date: 02/06/24 Discharge Date: 02/07/24 Disposition: ROUTINE DISCHARGE Discharge Condition: FAIR Reason for Admission: Chest Pain Brief History of Present Illness: 48 yrs old Male with past medical history of hypertension, hyperlipidemia, hypothyroidism, DM , obesity, history of cholecystitis status post cholecystectomy who came to ER with abdominal pain and chest discomfort associated with nausea and vomiting 1 day duration. Abdominal pain resolved but patient continued to experience chest pain. Patient was assessed in the ER and was found to have NSTEMI and was admitted for further management Hospital Course: Diagnosis NSTEMI (non-ST elevated myocardial infarction) Morbid obesity Diabetes mellitus type 2 Essential hypertension Hyperlipidemia Patient was admitted to the medical floor and the following medical problems addressed: NSTEMI Cardiac enzymes mildly elevated Patient treated with heparin drip, aspirin and statin He was seen by cardiology Dr. Khan Status post cardiac catheterization, cardiac stent placed in theRCA Patient started aspirin and Plavix, statin. Patient has been informed compliance with aspirin and Plavix is crucial especially within the first 1 to 2 months. Patient and mother voiced understanding. Patient also placed on low-dose metoprolol. He has been informed to follow-up with Dr. Khan in the office within 1 to 2 weeks. Hypertension Home dose irbesartan resumed on discharge. Hyperlipidemia/hypertriglyceridemia Continue statin Patient with significant hypertriglyceridemia. Patient started on Tricor. Diabetes mellitus Managed with insulin sliding scale Accu-Chek ACHS Hyponatremia Mild. Resolved Abdominal pain Abdominal pain resolved. CT abdomen pelvis showed no acute abnormality. Obesity Weight loss by diet and exercise advised. Vital Signs/Physical Exam: Temp Pulse Resp BP Pulse Ox 98.4 F 70 16 135/67 96 02/07/24 07:50 02/07/24 07:50 02/07/24 07:50 02/07/24 07:50 02/07/24 07:50 Laboratory Data at Discharge: WBC 8.50 thou/uL (4.3-10.9) 02/06/24 06:13 Hgb 15.7 g/dL (13.6-17.9) 02/06/24 06:13 Hct 46.2 % (39.6-49.0) 02/06/24 06:13 Plt Count 271 thou/uL (152-406) 02/06/24 06:13 PT 11.3 SECONDS (9.5-12.5) 02/05/24 03:30 INR 1.03 02/05/24 03:30 APTT 33.9 SECONDS (24.3-36.9) 02/05/24 13:22 Sodium 137 mEq/L (136-145) 02/06/24 05:13 Potassium 4.2 mEq/L (3.5-5.1) 02/06/24 05:13 BUN 13 mg/dL (7-18) 02/06/24 05:13 Creatinine 0.79 mg/dL (0.70-1.30) 02/06/24 05:13 Glucose 118 mg/dL (74-106) H 02/06/24 05:13 Total Bilirubin 0.4 mg/dL (0.2-1.0) 02/06/24 05:13 AST 14 U/L (15-37) L 02/06/24 05:13 ALT 25 U/L (16-61) 02/06/24 05:13 Alkaline Phosphatase 81 U/L (45-117) 02/06/24 05:13 Triglycerides Cancelled 02/05/24 Unknown Cholesterol Cancelled 02/05/24 Unknown LDL Cholesterol Direct 128 mg/dL (100-129) 02/05/24 13:22 HDL Cholesterol Cancelled 02/05/24 Unknown Cholesterol/HDL Ratio Cancelled 02/05/24 Unknown Lipase 31 U/L (13-75) 02/05/24 01:26 Home Medications: Irbesartan 150 mg PO DAILY 02/05/24 Levothyroxine Sodium [Synthroid] 1 tab PO DAILY 02/05/24 Aspirin Chewable [Aspirin Chewable*] 81 mg PO DAILY #30 tab.chew 02/07/24 Atorvastatin Calcium [Lipitor] 40 mg PO BEDTIME #30 tab 02/07/24 Clopidogrel Bisulfate [Plavix*] 75 mg PO DAILY #30 tab 02/07/24 Fenofibrate [Tricor*] 160 mg PO DAILY #30 tab 02/07/24 Metoprolol Tartrate 12.5 mg PO BID #30 tab 02/07/24 New Medications: Aspirin Chewable [Aspirin Chewable*] 81 mg PO DAILY #30 tab.chew Atorvastatin Calcium [Lipitor] 40 mg PO BEDTIME #30 tab Metoprolol Tartrate 12.5 mg PO BID #30 tab Clopidogrel Bisulfate [Plavix*] 75 mg PO DAILY #30 tab Fenofibrate [Tricor*] 160 mg PO DAILY #30 tab Physician Discharge Instructions: Patient was admitted due to chest pain and abdominal pain with associated mildly elevated troponin. He was seen and evaluated by cardiology and given his risk factors cardiac catheterization was performed and his RCA stented. Patient was monitored overnight with no acute issues. He has been prescribed aspirin and Plavix, Lipitor and Tricor for hyperlipidemia and significant hypertriglyceridemia. Patient has been made to understand aspirin and Plavix is crucial to prevent stent stenosis. He voiced understanding. He is informed to follow-up with Dr. Khan within 1 to 2 weeks.. Diet: AHA Activity: Ad mono Followup: NONE,NONE [Primary Care Provider] - (Follow up in your Clinic in [place] in 1 week) Luc Khan MD [ACTIVE - CAN ADMIT] - 1 Week Time spent managing pt's care (in minutes): 35
== END 2024-02-07 12:52 | disposition home or self-care (01) | DRG 322 ==
LOC: ER 23:12 → ERHOLD 02-05 04:04 → 4TH 02-05 05:32 → OBSVTOIN 02-06 19:51
PROVIDERS: ADMIT Family Medicine; ATTEND Internal Medicine
PROC: 027034Z Dilation of Coronary Artery, One Artery with Drug-eluting Intraluminal Device, Percutaneous Approach (ICD-10-PCS; principal; 2024-02-06)
PROC: 4A023N7 Measurement of Cardiac Sampling and Pressure, Left Heart, Percutaneous Approach (ICD-10-PCS; 2024-02-06)
PROC: B2111ZZ Fluoroscopy of Multiple Coronary Arteries using Low Osmolar Contrast (ICD-10-PCS; 2024-02-06)
DX: I21.4 Non-ST elevation (NSTEMI) myocardial infarction (principal); E87.1 Hypo-osmolality and hyponatremia; I10 Essential (primary) hypertension; E03.9 Hypothyroidism, unspecified; E78.5 Hyperlipidemia, unspecified; E78.1 Pure hyperglyceridemia; E11.9 Type 2 diabetes mellitus without complications; E66.01 Morbid (severe) obesity due to excess calories; F17.210 Nicotine dependence, cigarettes, uncomplicated; Z68.37 Body mass index [BMI] 37.0-37.9, adult; Z79.82 Long term (current) use of aspirin; Z90.49 Acquired absence of other specified parts of digestive tract; Z79.890 Hormone replacement therapy; Z79.02 Long term (current) use of antithrombotics/antiplatelets; Z79.899 Other long term (current) drug therapy
CPT/HCPCS: 36415; 71045; 74177; 76937; 80053; 80061; 81001; 82947; 83690; 83880; 84439; 84443; 84484; 85025; 85347; 85610; 85730; 86140; 92928; 93005; 93458; 99285; C1725; C1893; G0378; J1644; J1650; J1815; J2001; J2250; J2270; J2405; J3010; J7030; J7040; Q9967

== ENCOUNTER 2024-02-09 22:15 | Emergency (ER) | payer SELFPAY ==
--- OUTSIDE RECORDS SUMMARY | 2024-02-09 22:24 | XMS REPORT | Continuity of Care Document ---
Author Name Unknown Address [address] [facility]. [address] [place] [address] [facility] Address [address] [facility] [address] [place] [address] Care Team Providers Care Sales Program Manager Name Role Phone PCP, PATIENT DOES NOT HAVE A Primary Care Physic bala Unavailable BABS BUSTAMANTE Attending Clinician Unavailable CHAPITO CONTRERAS Attending Clinician Unavailable Chapito Contreras MD Attending Clinician [phone] Nidia SOLANO Attending Clinician Unavailable Nidia Goss Attending Clinician [phone] JOSE FRANCISCO WALTERS Attending Clinician Unavailable Jose Francisco Walters MD Attending Clinician [phone] LOREN TAM Attending Clinician Unavailable LOREN TAM Attending Clinician Unavailable Loren Tam DO Attending Clinician [phone] Doctor Unassigned, Reid Attending Clinician U Patrick Quiroz Attending Clinician [phone] PATRICK VERGARA Attending Clinician Unavailable SOFIA ESCOBAR Attending Clinician Unavailable SOFIA ESCOBAR Attending Clinician Unavailable MARIE MORALES Attending Clinician Unavailab Marie Cespedes DO Attending Clinician [phone] SAQIB CLARKE Attending Clinician Unavailable Saqib Clarke DO Attending Clinician [phone] BENJAMIN ASHFORD Attending Clinician Unavailable Benjamin Ashford MD Attending Clinician [phone] Geoff Cardona MD Attending Clinician [phone] GEOFF CARDONA Attending Clinician Unavailable Kiki Mathur MD Attending Clinician [phone] KIKI MATHUR Attending Clinician UnavailGricelda Sherman MD Attending Clinician [phone] BABS BUSTAMANTE Admitting Clinician Unavailable JOSE FRANCISCO WALTERS Admitting Clinician Unavailable CHAPITO CONTRERAS Admitting Clinician Unavailable LOREN TAM Admitting Clinician Unavailable PATRICK VERGARA Admitting Clinician Unavailable Nidia SOLANO Admitting Clinician Unavailable MARIE MORALES Admitting Clinician Unavailab Gricelad Brooks MD Admitting Clinician [phone] Payers Payer Name Policy Type Policy Number Effective Date Expirati on Date Source MEDICAID ALIEN PENDING PENDING 2024 00:00:00 [employer] [id number] 2023 00:00:00 [facility] [id number] 2023 00:00:00 Problems Condition Name Condition Details Condition Category Status Onset Date Resolution Date Last Treatment Date Treating Clinician Comments Source Obesity (BMI 30-39.9) Obesity (BMI 30-39.9) Disease Active 05-08 00:00: 00 [facility] Cigarette nicotine dependence without complicati on Cigarette nicotine dependence without complicati on Disease Active 2019-10 00:00: 00 [facility] Atypical chest pain Atypical chest pain Disease Active 2019-10 00:00: 00 [facility] Essential hypertensi on Essential hypertensi on Disease Active 2019-10 00:00: 00 [facility] No known active problems No known active problems Disease [facility] Allergies, Adverse Reactions, Alerts Allergy Name Allergy Type Status Severity Reaction(s) Onset Date Inactive Date Treating Clinician Comments Source Penicill in Propensi ty to adverse reaction s Active Unknown - See comments 03-30 00:00: 00 [facility] PENICILL IN DRUG INGREDI Active Unknown-Cmnt 2018-0 6-11 00:00: 00 [facility] NO KNOWN ALLERGIE S Drug Class Active [facility] Social History Social Habit Start Date Stop Date Quantity Comments Source History of tobacco use Cigarette Smoker [facility] History SDOH Alcohol Frequency [facility] History SDOH Alcohol Std Drinks [facility] History SDOH Alcohol Binge [facility] Gender identity [facility] Alcohol intake 2024-02-04 00:00:00 2024-02-04 00:00:00 Current drinker of alcohol (finding) [facility] Exposure to SARS-CoV-2 (event) 2023-02-10 00:00:00 2023-02-20 18:06:00 Not sure [facility] Cigarettes smoked current (pack per day) - Reported 2021-05-08 00:00:00 2021-05-08 00:00:00 [facility] Alcohol Comment 2021-05-08 00:00:00 2021-05-08 00:00:00 6beers on the weekend [facility] Tobacco use and exposure 2021-05-08 00:00:00 2021-05-08 00:00:00 Smokeless tobacco non-user [facility] History of Social function 2020-08-29 00:00:00 2020-08-29 00:00:00 [facility] Sex Assigned At 1975 00:00:00 1975 00:00:00 [facility] Smoking Status Start Date Stop Date Source Smokes tobacco daily 2021-05-08 00:00:00 [facility] Never smoker [facility] Unknown if ever smoked [facility] Medications Ordered Medication Name Filled Medication Name Start Date Stop Date Current Medication? Ordering Clinician Indication Dosage Frequency Signature (SIG) Comments Components Source iopamidol (ISOVUE 370-500 mL) injection 85 mL 02-03 18:00: 00 02-03 18:00 :00 No [id number] 85mL 85 mL, Intravenou s, ONCE, 1 dose, On Fri02/04/24 at 1300, Routine [facility] morpHINE (2 mg/mL) injection 2 mg 02-03 17:45: 00 02-03 18:48 :00 No 2mg 2 mg, Slow IV Push, ONCE, 1 dose, On Fri02/04/24 at 1245, STAT [facility] ondansetron (ZOFRAN (PF)) injection 4 mg 02-03 16:30: 00 02-03 17:15 :00 No 4mg 4 mg, Slow IV Push, ONCE, 1 dose, On Fri02/04/24 at 1130, FAWN [facility] ketorolac (TORADOL) injection 15 mg 02-03 16:30: 00 02-03 17:16 :00 No 15mg 15 mg, Slow IV Push, ONCE, 1 dose, On Fri02/04/24 at 1130, FAWN [facility] sodium chloride (NS) injection 5 mL 02-03 15:28: 49 Yes 5mL 5 mL, Intravenou s, PRN, Starting on Fri02/04/24 at 1028, Until Discontinu ed, Routine, IV line flushing [facility] dicyclomine (BENTYL) injection 20 mg 12-27 09:15: 00 Yes 20mg 20 mg, Intramuscu lar, QID, First dose on Fri12/28/23 at 0415, Until Discontinu ed, Routine [facility] maalox:diph enhydrAMINE :lidocaine 2 % viscous 1:1:1 (FIRST-MOUT HWASH BLM) oral suspension 15 mL 12-27 08:30: 00 12-27 08:27 :00 No 15mL 15 mL, Oral, ONCE, 1 dose, On Fri12/28/23 at 0330, Routine [facility] maalox:diph enhydrAMINE :lidocaine 2 % viscous 1:1:1 (FIRST-MOUT HWASH BLM) oral suspension 15 mL 11-06 07:15: 00 11-06 07:38 :00 No 15mL 15 mL, Oral, ONCE, 1 dose, On Ale 11/06/23 at 0115, Routine [facility] famotidine (PEPCID (PF)) injection 20 mg 11-06 07:15: 00 11-06 07:38 :00 No 20mg 20 mg, Slow IV Push, ONCE, 1 dose, On Ale 11/06/23 at 0115, FAWN [facility] NaCl 0.9% (NS) bolus infusion 1,000 mL 11-06 07:15: 00 11-06 07:38 :00 No 1000mL at 999 mL/hr, 1,000 mL, IV Infusion, ONCE, 1 dose, On Ale 11/06/23 at 0115, STAT [facility] ondansetron (ZOFRAN (PF)) injection 4 mg 11-06 07:15: 00 11-06 06:19 :00 No 4mg 4 mg, Slow IV Push, ONCE, 1 dose, On Ale 11/06/23 at 0115, FAWN [facility] dicyclomine (BENTYL) injection 20 mg 11-06 07:00: 00 11-06 07:00 :00 No 20mg 20 mg, Intramuscu lar, ONCE, 1 dose, On Ale 11/06/23 at 0100, Routine [facility] dicyclomine 20 mg tablet 11-06 00:00: 00 Yes 20mg Take 1 tablet by mouth 4 (four) times daily. Indication s: abdominal pain [facility] famotidine (PEPCID) 40 mg tablet 11-06 00:00: 00 Yes [id number] 40mg Take 1 tablet by mouth daily. [facility] acetaminoph en (TYLENOL) tablet 650 mg 11-01 09:30: 00 11-01 09:30 :00 No 650mg 650 mg, Oral, ONCE, 1 dose, On 11/01/23 at 0330, FAWN [facility] iopamidol (ISOVUE 370-500 mL) injection 100 mL 11-01 09:30: 00 11-01 09:30 :00 No [id number] 100mL 100 mL, Intravenou s, ONCE, 1 dose, On 11/01/23 at 0330, Routine [facility] morpHINE (4 mg/mL) injection 4 mg 11-01 07:00: 00 11-01 06:56 :00 No 4mg 4 mg, Slow IV Push, ONCE, 1 dose, On 11/01/23 at 0100, STAT [facility] ketorolac (TORADOL) injection 30 mg 11-01 06:45: 00 11-01 06:00 :00 No 30mg 30 mg, Slow IV Push, ONCE, 1 dose, On 11/01/23 at 0045, FAWN [facility] NaCl 0.9% (NS) bolus infusion 1,000 mL 11-01 06:45: 00 11-01 07:59 :00 No 1000mL at 999 mL/hr, 1,000 mL, IV Piggyback, ONCE, 1 dose, On 11/01/23 at 0045, STAT [facility] ondansetron (ZOFRAN (PF)) injection 4 mg 11-01 06:00: 00 11-01 05:59 :00 No 4mg 4 mg, Slow IV Push, ONCE, 1 dose, On 11/01/23 at 0000, FAWN [facility] morpHINE (4 mg/mL) injection 4 mg 11-01 06:00: 00 11-01 06:00 :00 No 4mg 4 mg, Slow IV Push, ONCE, 1 dose, On 11/01/23 at 0000, STAT [facility] famotidine (PEPCID) 20 mg tablet 11-01 00:00: 00 Yes [id number] 20mg Take 1 tablet by mouth 2 (two) times daily. [facility] dicyclomine 20 mg tablet 11-01 00:00: 00 Yes [id number] 20mg Take 1 tablet by mouth 3 (three) times daily as needed for Abdominal pain. [facility] iopamidol (ISOVUE 370-500 mL) injection 100 mL 10-23 08:00: 00 10-23 08:00 :00 No [id number] 100mL 100 mL, Intravenou s, ONCE, 1 dose, On Ale 10/23/23 at 0200, Routine Univers it[facility] FENTanyl PF (SUBLIMAZE (PF)) injection 50 mcg 10-23 08:00: 00 10-23 07:01 :00 No 50ug 50 mcg, Slow IV Push, ONCE, 1 dose, On Ale 10/23/23 at 0200, Routine [facility] ketorolac (TORADOL) injection 30 mg 10-23 07:15: 00 10-23 06:08 :00 No 30mg 30 mg, Slow IV Push, ONCE, 1 dose, On Ale 10/23/23 at 0115, Routine [facility] ondansetron (ZOFRAN (PF)) injection 4 mg 10-23 06:15: 10-23 06:08 :00 No 4mg 4 mg, Slow IV Push, ONCE, 1 dose, On Ale 10/23/23 at 0015, FAWN [facility] ketorolac 10 mg tablet 10-23 00:00: 00 Yes [id number] 10mg Take 1 tablet by mouth every 6 (six) hours as needed for Pain (scale 7-10). [facility] iopamidol (ISOVUE 370-500 mL) injection 100 mL 2022-10 07:15: 00 09-26 07:15 :00 No [id number] 100mL 100 mL, Intravenou s, ONCE, 1 dose, On Fri09/26/23 at 0115, Routine [facility] ketorolac (TORADOL) injection 30 mg 2022-10 07:00: 00 09-26 06:12 :00 No 30mg 30 mg, Slow IV Push, ONCE, 1 dose, On Fri09/26/23 at 0100, Routine Univers y [facility] NaCl 0.9% (NS) bolus infusion 1,000 mL 2022-10 06:00: 00 09-26 06:15 :00 No 1000mL at 999 mL/hr, 1,000 mL, IV Infusion, ONCE, 1 dose, On Fri09/26/23 at 0000, [facility] morpHINE (4 mg/mL) injection 4 mg 2022-10 05:30: 00 09-26 05:19 :00 No 4mg 4 mg, Slow IV Push, ONCE, 1 dose, On Ale 09/25/23 at 2330, STAT [facility] lactulose (CEPHULAC) solution 60 mL 2022-10 05:15: 00 09-26 05:13 :00 No 60mL 60 mL, Oral, ONCE, 1 dose, On Ale 09/25/23 at 2315, [facility] ondansetron (ZOFRAN (PF)) injection 4 mg 2022-10 05:15: 00 09-26 05:13 :00 No 4mg 4 mg, Slow IV Push, ONCE, 1 dose, On Ale 09/25/23 at 2315, [facility] SEMAGLUTIDE , WEIGHT LOSS, SC 2022-10 02:30: 30 Yes inject under the skin. [facility] iopamidol (ISOVUE 370-500 mL) injection 75 mL 2022-10 09:00: 00 08-24 09:00 :00 No [id number] 75mL 75 mL, Intravenou s, ONCE, 1 dose, On Fri08/24/23 at 0300, Routine [facility] ondansetron (ZOFRAN (PF)) injection 4 mg 2022-10 06:30: 00 08-24 08:15 :00 No 4mg 4 mg, Slow IV Push, ONCE, 1 dose, On Fri08/24/23 at 0130, [facility] morpHINE (4 mg/mL) injection 4 mg 2022-10 06:30: 00 08-24 08:14 :00 No 4mg 4 mg, Slow IV Push, ONCE, 1 dose, On Fri08/24/23 at 0130, STAT [facility] aspirin tablet 325 mg 2022-10 05:15: 00 08-24 05:18 :00 No 325mg 325 mg, Oral, ONCE, 1 dose, On Fri08/24/23 at 0015, STAT [facility] ketorolac (TORADOL) injection 30 mg 07-07 10:45: 00 07-07 09:53 :00 No 30mg 30 mg, Slow IV Push, ONCE, 1 dose, On Fri07/07/23 at 0545, Routine [facility] metoclopram glenroy HCl (REGLAN) injection 10 mg 07-07 09:45: 00 07-07 09:54 :00 No 10mg 10 mg, Slow IV Push, ONCE, 1 dose, On Fri07/07/23 at 0445, [facility] butalbital- acetaminoph en-caff 50-325-40 mg tablet 07-07 00:00: 00 Yes [id number] 1{tbl} Take 1 tablet by mouth every 6 (six) hours as needed (Headache) . [facility] metFORMIN (GLUCOPHAGE ) tablet 500 mg 05-26 13:00: 00 Yes 500mg 500 mg, Oral, BID MEALS, First dose on Fri05/26/23 at 0800, Until Discontinu ed, Routine [facility] ketorolac (TORADOL) injection 15 mg 05-26 03:00: 00 05-26 02:19 :00 No 15mg 15 mg, Slow IV Push, ONCE, 1 dose, On Fri05/25/23 at 2200, [facility] nitroglycer in (NITROL) 2 % ointment 0.5 Inch 05-25 23:30: 00 05-26 01:27 :00 No .5[in_u s] 0.5 Inch, Transderma l (Apply To Skin), ONCE, 1 dose, On Fri05/25/23 at 1830, [facility] maalox:diph enhydrAMINE :lidocaine 2 % viscous 1:1:1 (FIRST-MOUT HWASH BLM) oral suspension 15 mL 05-25 23:30: 00 05-26 00:49 :00 No 15mL 15 mL, Oral (Swish & Swallow), ONCE, 1 dose, On Anderson 05/25/23 at 1830, Routine [facility] aspirin chewable tablet 324 mg 05-25 23:30: 00 05-25 22:24 :00 No 324mg 324 mg, Oral, ONCE, 1 dose, On Anderson 05/25/23 at 1830, Routine [facility] metFORMIN 500 mg tablet 05-25 00:00: 00 Yes [id number] 500mg Take 1 tablet by mouth 2 (two) times daily. [facility] naproxen (NAPROSYN) 500 mg tablet 05-25 00:00: 00 02-03 00:00 :00 No [id number] 500mg Take 1 tablet by mouth 2 (two) times daily with meals. [facility] cloNIDine (CATAPRES) tablet 0.2 mg 02-21 00:45: 00 02-21 01:50 :00 No .2mg 0.2 mg, Oral, ONCE, 1 dose, On [facility] 02/20/23 at 1945, FAWN [facility] ibuprofen (IBU) tablet 600 mg 02-20 23:30: 00 02-20 23:30 :00 No 600mg 600 mg, Oral, ONCE, 1 dose, On [facility] 02/20/23 at 1830, FAWN [facility] ibuprofen 600 mg tablet 02-20 00:00: 00 02-03 00:00 :00 No [id number] 600mg Take 1 tablet by mouth every 6 (six) hours as needed for Pain (scale 4-6) for up to 30 doses. [facility] iopamidol (ISOVUE 370-500 mL) injection 100 mL 3-12 09:15: 00 12-29 09:15 :00 No [id number] 100mL 100 mL, Intravenou s, ONCE, 1 dose, On 12/29/22 at 0415, Routine [facility] ketorolac (TORADOL) injection 30 mg 12-29 09:00: 00 12-29 07:53 :00 No 30mg 30 mg, Slow IV Push, ONCE, 1 dose, On 12/29/22 at 0400, Routine [facility] ondansetron (ZOFRAN) 4 mg tablet 12-29 00:00: 00 Yes [id number] 4mg Take 1 tablet by mouth every 8 (eight) hours as needed for Nausea and Vomiting (N/V). [facility] ketorolac 10 mg tablet 12-29 00:00: 00 Yes [id number] 10mg Take 1 tablet by mouth every 6 (six) hours as needed for Pain (scale 7-10). [facility] it[facility] maalox:diph enhydrAMINE :lidocaine 2 % viscous 1:1:1 (FIRST-MOUT HWASH BLM) oral suspension 15 mL 11-21 08:45: 00 11-21 08:36 :00 No 15mL 15 mL, Oral, ONCE, 1 dose, On Ale 11/21/22 at 0245, [facility] metoclopram glenroy HCl (REGLAN) tablet 10 mg 06-02 12:30: 00 Yes 10mg 10 mg, Oral, AC, First dose on 06/02/22 at 0730, Until Discontinu ed, Routine [facility] dexamethaso ne (DECADRON PHOSPHATE) injection 10 mg 06-02 06:00: 00 06-02 04:55 :00 No 10mg 10 mg, Oral, ONCE, 1 dose, On 06/02/22 at 0100, Routine [facility] butalbital- acetaminoph en-caff (ESGIC) 50-325-40 mg tablet 1 tablet 06-02 05:00: 00 06-02 04:56 :00 No 1{tbl} 1 tablet, Oral, ONCE, 1 dose, On 06/02/22 at 0000, FAWN [facility] diphenhydrA MINE (BENADRYL) tablet 50 mg 06-02 05:00: 00 06-02 04:54 :00 No 50mg 50 mg, Oral, ONCE, 1 dose, On Fri06/02/22 at 0000, FAWN [facility] levothyroxi ne (SYNTHROID) tablet 100 mcg 05-29 11:00: 00 Yes 100ug 100 mcg, Oral, QAM-0600, First dose on Fri05/29/22 at 0600, Until Discontinu ed, Routine [facility] levothyroxi ne 200 mcg tablet 05-28 13:18: 02 05-28 00:00 :00 No 300ug Take 300 mcg by mouth every morning. [facility] levothyroxi ne 300 mcg tablet 05-28 00:00: 00 08-27 05:59 :00 No [id number] 300ug Take 1 tablet by mouth every morning for 90 days. [facility] ketorolac (TORADOL) injection 15 mg 05-06 06:30: 00 05-06 05:30 :00 No 15mg 15 mg, Slow IV Push, ONCE, 1 dose, On Fri05/06/22 at 0130, FAWN [facility] iopamidol (ISOVUE 370-500 mL) injection 65 mL 05-06 06:00: 00 05-06 06:15 :00 No [id number] 65mL 65 mL, Intravenou s, ONCE, 1 dose, On Fri05/06/22 at 0115, Routine [facility] benzonatate 200 mg capsule 05-06 00:00: 00 Yes [id number] 200mg Take 1 capsule by mouth 3 (three) times daily as needed for Cough for up to 20 doses. [facility] ondansetron 4 mg disintegrat ing tablet 05-06 00:00: 00 Yes [id number] 4mg Take 1 tablet by mouth every 8 (eight) hours as needed for Nausea and Vomiting (N/V). [facility] ibuprofen 600 mg tablet 05-06 00:00: 00 02-20 00:00 :00 No [id number] 600mg Take 1 tablet by mouth every 6 (six) hours as needed for Pain (scale 4-6). [facility] molnupiravi r 200 mg capsule 05-06 00:00: 00 05-12 04:59 :00 No [id number] 800mg Take 4 capsules by mouth every 12 (twelve) hours for 5 days. [facility] magnesium sulfate in water 2 gram/50 mL (4 %) infusion 2 g 05-01 13:45: 00 05-01 14:06 :00 No 2g 2 g, IV Piggyback, Administer over 60 Minutes, ONCE, 1 dose, On Fri05/01/22 at 0845, Routine [facility] diphenhydrA MINE (BENADRYL) injection 50 mg 05-01 12:45: 00 05-01 12:43 :00 No 50mg 50 mg, Slow IV Push, ONCE, 1 dose, On Fri05/01/22 at 0745, STAT [facility] maalox:diph enhydrAMINE :lidocaine 2 % viscous 1:1:1 (FIRST-MOUT HWASH [facility]) oral suspension 15 mL 02-08 07:15: 00 02-08 06:14 :00 No 15mL 15 mL, Oral, ONCE, 1 dose, On Fri02/08/22 at 0215, FAWN [facility] sucralfate 1 gram tablet 02-08 00:00: 00 Yes [id number] 1g Take 1 tablet by mouth before meals and at bedtime. [facility] ondansetron 4 mg disintegrat ing tablet 02-08 00:00: 00 Yes [id number] 4mg Take 1 tablet by mouth every 4 (four) hours as needed for Nausea and Vomiting (N/V). [facility] pantoprazol e 40 mg EC tablet 02-08 00:00: 00 Yes [id number] 40mg Take 1 tablet by mouth daily. [facility] maalox:diph enhydrAMINE :lidocaine 2 % viscous 1:1:1 (FIRST-MOUT HWASH BLM) oral suspension 15 mL 2020-10 02:15: 00 10-15 01:17 :00 No 15mL 15 mL, Oral, ONCE, 1 dose, On Fri10/14/21 at 2015, Routine [facility] iopamidol (ISOVUE 370-500 mL) injection 120 mL 2020-10 01:45: 00 10-15 00:37 :00 No [id number] 120mL 120 mL, Intravenou s, ONCE, 1 dose, On Fri10/14/21 at 1945, Routine [facility] famotidine (PEPCID (PF)) injection 20 mg 2020-10 00:30: 00 10-15 00:26 :00 No 20mg 20 mg, Slow IV Push, ONCE, 1 dose, On Fri10/14/21 at 1830, Routine [facility] enalapril 20 mg tablet 05-15 17:24: 35 Yes 25mg Take 25 mg by mouth daily. [facility] levothyroxi ne 200 mcg tablet 05-15 17:24: 35 Yes 300ug Take 300 mcg by mouth every morning. [facility] enalapril 20 mg tablet 05-15 12:24: 35 Yes 25mg Take 25 mg by mouth daily. [facility] levothyroxi ne 200 mcg tablet 05-15 12:24: 35 Yes 300ug Take 300 mcg by mouth every morning. [facility] FENTanyl (ACTIQ) lollipop 600 mcg 05-08 19:45: 00 05-08 18:59 :00 No [id number] 600ug 600 mcg, Buccal, ONCE, 1 dose, Fri05/08/21 at 1445, Routine [facility] sulfamethox azole-trime thoprim (BACTRIM DS) 800-160 mg per tablet 05-08 00:00: 00 05-16 04:59 :00 No [id number] 1{tbl} Take 1 tablet by mouth 2 (two) times daily for 7 days. [facility] HYDROcodone -acetaminop hen (NORCO) 10-325 mg tablet 1 tablet 05-06 09:45: 00 05-06 08:44 :00 No 1{tbl} 1 tablet, Oral, ONCE, 1 dose, [place] 05/06/21 at 0445, Routine [facility] sulfamethox azole-trime thoprim 800-160 mg per tablet 05-06 00:00: 00 Yes [id number] 1{tbl} Take 1 tablet by mouth every 12 (twelve) hours. [facility] HYDROcodone -acetaminop hen 5-325 mg tablet 05-06 00:00: 00 05-14 04:59 :00 No [id number] 1{tbl} Take 1 tablet by mouth every 4 (four) hours as needed for Pain (scale 7-10) for up to 7 days. Indication s: acute pain [facility] ketorolac (TORADOL) injection 30 mg 03-15 06:30: 00 03-15 05:44 :00 No 30mg 30 mg, Slow IV Push, ONCE, 1 dose, [facility] 03/15/21 at 0130, Routine
research staff member approving Restricted medication : CHAPITO CONTRERAS [facility] enalapril 20 mg tablet 03-15 06:19: 47 Yes 25mg Take 25 mg by mouth daily. [facility] levothyroxi ne 200 mcg tablet 03-15 06:19: 47 Yes 300ug Take 300 mcg by mouth every morning. [facility] iopamidol (ISOVUE 370-500 mL) injection 120 mL 03-15 06:00: 00 03-15 06:00 :00 No [id number] 120mL 120 mL, Intravenou s, ONCE, 1 dose, [facility] 03/15/21 at 0100, Routine [facility] KCL (KLOR-CON M20) tablet 40 mEq 03-15 05:45: 00 03-15 05:01 :00 No [id number] 40 mEq, Oral, ONCE, 1 dose, [facility] 03/15/21 at 0045, Routine [facility] ondansetron (ZOFRAN (PF)) injection 4 mg 03-15 05:30: 00 03-15 04:32 :00 No 4mg 4 mg, Slow IV Push, ONCE, 1 dose, Ale 03/15/21 at 0030, FAWN [facility] FENTanyl PF (SUBLIMAZE (PF)) injection 75 mcg 03-15 05:30: 00 03-15 04:32 :00 No 75ug 75 mcg, Slow IV Push, ONCE, 1 dose, Ale 03/15/21 at 0030, Routine [facility] traMADoL (ULTRAM) 50 mg tablet 03-15 00:00: 00 Yes [id number] 50mg Take 1 tablet by mouth every 6 (six) hours as needed for Pain (scale 4-6) or Pain (scale 7-10). Indication s: acute pain [facility] methocarbam oL 500 mg tablet 03-15 00:00: 00 Yes [id number] 500mg Take 1 tablet by mouth every 6 (six) hours as needed (MUSCLE SPASM). [facility] ibuprofen 800 mg tablet 03-15 00:00: 00 02-20 00:00 :00 No [id number] 800mg Take 1 tablet by mouth every 8 (eight) hours as needed for Pain (scale 4-6). [facility] pantoprazol e (PROTONIX) 80 mg in NaCl 0.9% (NS) 20 mL syringe 2019-10 00:15: 00 09-08 23:17 :00 No 80mg 80 mg, IV Push, ONCE, 1 dose, 09/08/20 at 1815, 20 mL [facility] maalox:diph enhydrAMINE :lidocaine2 %viscous 1:1:1: suspension (COMPOUNDED ) 2019-10 00:15: 00 09-08 23:16 :00 No 15mL 15 mL, Oral, ONCE, 1 dose, 09/08/20 at 1815, Routine [facility] sucralfate 1 gram tablet 2019-10 00:00: 00 03-14 00:00 :00 No [id number] 1g Take 1 tablet by mouth before meals and at bedtime. [facility] dicyclomine (BENTYL) 10 mg capsule 2019-10 00:00: 00 03-14 00:00 :00 No [id number] 10mg Take 1 capsule by mouth every 8 (eight) hours as needed for Abdominal pain. [facility] ondansetron 4 mg disintegrat ing tablet 2019-10 00:00: 00 03-14 00:00 :00 No [id number] 4mg Take 1 tablet by mouth every 8 (eight) hours as needed for Nausea and Vomiting (N/V). [facility] omeprazole 20 mg capsule 2019-10 00:00: 00 10-09 05:59 :00 No [id number] 20mg Take 1 capsule by mouth daily for 30 days. [facility] ketorolac (TORADOL) injection 30 mg 2019-10 20:15: 00 09-06 19:14 :00 No 30mg 30 mg, Slow IV Push, ONCE, 1 dose, Fri09/06/20 at 1415, FAWN
Fa culty member approving Restricted medication : Nidia SOLANO [facility] FENTanyl PF (SUBLIMAZE (PF)) injection 50 mcg 2019-10 18:45: 00 09-06 17:38 :00 No 50ug 50 mcg, Slow IV Push, ONCE, 1 dose, Fri09/06/20 at 1245, STAT [facility] iohexol (OMNIPAQUE 350 BULK-500 mL) injection 150 mL 2019-10 18:15: 00 09-06 17:00 :00 No 150mL 150 mL, Intravenou s, ONCE, 1 dose, Fri09/06/20 at 1215, Routine [facility] ondansetron (ZOFRAN (PF)) injection 4 mg 2019-10 17:30: 00 09-06 16:33 :00 No 4mg 4 mg, Slow IV Push, ONCE, 1 dose, Fri09/06/20 at 1130, FAWN [facility] morpHINE injection 4 mg 2019-10 17:30: 00 09-06 16:33 :00 No 4mg 4 mg, Slow IV Push, ONCE, 1 dose, Fri09/06/20 at 1130, STAT [facility] ibuprofen 600 mg tablet 2019-10 00:00: 00 03-14 00:00 :00 No [id number] 600mg Take 1 tablet by mouth every 6 (six) hours as needed for Pain (scale 4-6). [facility] Polyethylen e Glycol 3350 (MIRALAX) powder 17 g 2019-10 13:00: 00 08-30 11:55 :00 No 17g 17 g, Oral, ONCE, 1 dose, Fri08/30/20 at 0700, Routine [facility] aspirin 81 mg chewable tablet 2019-10 00:00: 00 09-30 05:59 :00 No [id number] 81mg Take 1 tablet by mouth daily for 30 days. [facility] levothyroxi ne 125 mcg tablet 2019-10 23:22: 41 08-29 00:00 :00 No 300ug Take 300 mcg by mouth every morning. [facility] lisinopriL 30 mg tablet 2019-10 23:22: 41 08-29 00:00 :00 No 25mg Take 25 mg by mouth daily. [facility] ondansetron (ZOFRAN (PF)) injection 4 mg 2019-10 23:15: 07 08-31 23:14 :07 No 4mg 4 mg, Slow IV Push, Q6HPRN, Starting Fri08/29/20 at 1715, Until Fri08/31/20 at 1714, Routine, Nausea and Vomiting (N/V) [facility] morpHINE injection 2 mg 2019-10 22:49: 42 08-30 22:48 :42 No 2mg 2 mg, Slow IV Push, Q4HPRN, Starting Fri08/29/20 at 1649, Until Fri08/30/20 at 1648, Routine, Pain (scale 7-10) [facility] ondansetron (ZOFRAN (PF)) injection 4 mg 2019-10 18:03: 34 08-29 22:50 :21 No 4mg 4 mg, Slow IV Push, Q6HPRN, Starting Fri08/29/20 at 1203, Until Fri08/29/20 at 1650, Routine, Nausea and Vomiting (N/V) [facility] ibuprofen (IBU) tablet 600 mg 2019-10 18:00: 00 Yes 600mg 600 mg, Oral, Q6H, First dose on Fri08/29/20 at 1200, Until Discontinu ed, Routine [facility] acetaminoph en (TYLENOL) tablet 500 mg 2019-10 18:00: 00 Yes 500mg 500 mg, Oral, Q6H, First dose on Fri08/29/20 at 1200, Until Discontinu ed, Routine [facility] lactated ringers IV infusion 1,000 mL 2019-10 17:00: 00 Yes 1000mL at 75 mL/hr, 1,000 mL, IV Infusion, CONTINUOUS , Starting Fri08/29/20 at 1100, Until Discontinu ed, Routine, PACU [facility] FENTanyl PF (SUBLIMAZE (PF)) injection 25 mcg 2019-10 16:57: 53 08-29 17:58 :11 No 25ug 25 mcg, Slow IV Push, Q5MIN PRN, 4 doses, Starting Fri08/29/20 at 1057, Until Fri08/29/20 at 1158, Routine, Pain (scale 4-6), PACU [facility] ondansetron (ZOFRAN (PF)) injection 4 mg 2019-10 16:57: 53 08-29 17:13 :00 No 4mg 4 mg, Slow IV Push, PRN, 1 dose, Starting Fri08/29/20 at 1057, Until Fri08/29/20 at 1113, Routine, Nausea and Vomiting (N/V), PACU [facility] traMADoL (ULTRAM) tablet 100 mg 2019-10 16:11: 10 08-29 22:51 :09 No 100mg 100 mg, Oral, Q6HPRN, Starting Fri08/29/20 at 1011, Until Fri08/29/20 at 1651, Routine, Pain (scale 7-10) [facility] traMADoL (ULTRAM) tablet 50 mg 2019-10 16:10: 52 Yes 50mg 50 mg, Oral, Q6HPRN, Starting Fri08/29/20 at 1010, Until Discontinu ed, Routine, Pain (scale 4-6) [facility] acetaminoph en ADULT (OFIRMEV) injection 1,000 mg 2019-10 00:15: 00 08-29 16:11 :33 No 1000mg 1,000 mg, IV Infusion, Administer over 15 Minutes, Q6H ABX, 4 doses, First dose on Fri08/28/20 at 1815, Last dose on Fri08/29/20 at 1215, Routine
Indicatio n: Non-periop erative Patient
Approved by: Per Policy (NPO Status) [facility] metroNIDAZO LE in NaCl (iso-os) (FLAGYL I.V.) RTU IV infusion 500 mg 2019-10 00:15: 00 08-29 16:11 :42 No 500mg 500 mg, IV Infusion, Q8H ABX, First dose on Fri08/28/20 at 1815, Until Discontinu ed, 100 mL
Reas on for Anti-Infec tive: Empiric Therapy for Suspected Infection< br>Empiric Therapy Site: Abdominal< br>Duratio n of therapy: 7 days [facility] levoFLOXaci n in D5W (LEVAQUIN) 750 mg/150 mL Piggyback 750 mg 2019-10 00:15: 00 08-29 16:11 :42 No 750mg 750 mg, IV Piggyback, Administer over 90 Minutes, Q24H ABX, First dose on Fri08/28/20 at 1815, Until Discontinu ed, FAWN
Re ason for Anti-Infec tive: Empiric Therapy for Suspected Infection< br>Empiric Therapy Site: Abdominal< br>Duratio n of therapy: 72 hours [facility] levothyroxi ne 125 mcg tablet 2019-10 00:00: 00 09-29 05:59 :00 No [id number] 312.5ug Take 2.5 tablets by mouth every morning for 30 days. [facility] lisinopriL 30 mg tablet 2019-10 00:00: 00 09-29 05:59 :00 No [id number] 30mg Take 1 tablet by mouth daily for 30 days. [facility] pantoprazol e (PROTONIX) 40 mg EC tablet 2019-10 00:00: 00 09-29 05:59 :00 No [id number] 40mg Take 1 tablet by mouth daily for 30 days. [facility] ibuprofen 800 mg tablet 2019-10 00:00: 00 09-04 05:59 :00 No [id number] 800mg Take 1 tablet by mouth every 8 (eight) hours as needed for Pain (scale 4-6) for up to 5 days. [facility] sulfur hexafluorid e microsphr (LUMASON) injection 5 mL 2019-10 21:30: 00 08-28 16:58 :00 No 5mL 5 mL, Intravenou s, ONCE, 1 dose, Fri08/28/20 at 1530, Routine
research staff member approving Restricted medication : DARIAN DAVENPORT [facility] morpHINE injection 4 mg 2019-10 20:09: 08 08-29 16:11 :42 No 4mg 4 mg, Slow IV Push, Q4HPRN, Starting Fri08/28/20 at 1409, Until Fri08/29/20 at 1011, Routine, Pain (scale 7-10) [facility] morpHINE injection 2 mg 2019-10 18:15: 00 08-28 17:20 :00 No 2mg 2 mg, Slow IV Push, ONCE, 1 dose, 08/28/20 at 1215, Routine [facility]othy[facility] (SYNTHROID) tablet 200 mcg 2019-10 12:00: 00 Yes 200ug 200 mcg, Oral, QAM-0600, First dose (after last modificati on) on 08/28/20 at 0600, Until Discontinu ed, Routine [facility] enoxaparin (LOVENOX) injection 40 mg 2019-10 23:00: 00 Yes 40mg 40 mg, Subcutaneo us, DAILY, First dose on 08/27/20 at 1700, Until Discontinu ed, Routine [facility] ketorolac (TORADOL) injection 30 mg 2019-10 15:45: 00 08-27 14:53 :00 No 30mg 30 mg, Slow IV Push, ONCE, 1 dose, 08/27/20 at 0945, Routine
research staff member approving Restricted medication : DOMINGO ANNE [facility] lisinopriL (PRINIVIL,Z ESTRIL) tablet 20 mg 2019-10 15:00: 00 Yes 20mg 20 mg, Oral, DAILY, First dose on 08/27/20 at 0900, Until Discontinu ed, Routine [facility] pantoprazol e (PROTONIX) EC tablet 40 mg 2019-10 15:00: 00 Yes 40mg 40 mg, Oral, DAILY, First dose on 08/27/20 at 0900, Until Discontinu ed, Routine [facility] aspirin chewable tablet 81 mg 2019-10 15:00: 00 Yes 81mg 81 mg, Oral, DAILY, First dose on 08/27/20 at 0900, Until Discontinu ed, Routine [facility] levothyroxi ne (SYNTHROID) tablet 300 mcg 2019-10 12:00: 00 08-27 14:38 :59 No 300ug 300 mcg, Oral, QAM-0600, First dose on 08/27/20 at 0600, Until Discontinu ed, Routine [facility] nicotine (NICODERM) 21 mg/24 hr patch 1 Patch 2019-10 08:30: 00 Yes 1{patch } 1 Patch, Topical, Administer over 24 Hours, Q24H, First dose on 08/27/20 at 0230, Until Discontinu ed, Routine [facility] acetaminoph en (TYLENOL) tablet 975 mg 2019-10 08:15: 00 08-27 07:56 :00 No 975mg 975 mg, Oral, ONCE, 1 dose, Anderson 08/27/20 at 0215, FAWN [facility] iohexol (OMNIPAQUE 350 BULK-100 mL) injection 120 mL 2019-10 07:45: 00 08-27 07:34 :00 No 120mL 120 mL, Intravenou s, ONCE, 1 dose, Anderson 08/27/20 at 0145, Routine [facility] traMADoL (ULTRAM) tablet 50 mg 2019-10 07:16: 43 08-29 07:15 :43 No 50mg 50 mg, Oral, Q8HPRN, Starting Anderson 08/27/20 at 0116, Until 08/29/20 at 0115, Routine, Pain (scale 4-6) [facility] acetaminoph en (TYLENOL) tablet 650 mg 2019-10 07:16: 41 08-28 23:11 :03 No 650mg 650 mg, Oral, Q6HPRN, Starting Anderson 08/27/20 at 0116, Until 08/28/20 at 1711, Routine, Pain (scale 1-3) [facility] morpHINE injection 2 mg 2019-10 07:14: 54 08-28 20:09 :18 No 2mg 2 mg, Slow IV Push, Q4HPRN, Starting Anderson 08/27/20 at 0114, Until 08/28/20 at 1409, Routine, Pain (scale 7-10) [facility] nitroglycer in (NITROSTAT) sublingual tablet 0.4 mg 2019-10 07:03: 30 Yes .4mg 0.4 mg, Sublingual , Q5MIN PRN, Starting Anderson 08/27/20 at 0103, Until Discontinu ed, Routine, Chest pain [facility] alum-mag hydroxide-s imeth (MAALOX PLUS / MAG-AL PLUS) 200-200-20 mg/5 mL suspension 30 mL 2019-10 07:02: 48 Yes 30mL 30 mL, Oral, Q6HPRN, Starting 08/27/20 at 0102, Until Discontinu ed, Routine, Indigestio n [facility] aspirin tablet 325 mg 2019-10 07:00: 00 08-27 06:16 :00 No 325mg 325 mg, Oral, ONCE, 1 dose, 08/27/20 at 0100, STAT [facility] nitroglycer in (NITROSTAT) sublingual tablet 0.4 mg 2019-10 07:00: 00 08-27 06:16 :00 No .4mg 0.4 mg, Sublingual , ONCE, 1 dose, 08/27/20 at 0100, FAWN [facility] aspirin chewable tablet 324 mg 07-10 14:00: 00 Yes 324mg 324 mg, Oral, DAILY, First dose on Fri07/10/20 at 0900, Until Discontinu ed, Routine [facility] iohexol (OMNIPAQUE 350 BULK-100 mL) injection 120 mL 07-10 05:15: 00 07-10 05:08 :00 No 120mL 120 mL, Intravenou s, ONCE, 1 dose, Fri07/10/20 at 0015, Routine [facility] codeine-gua ifenesin (ROBITUSSIN AC) 10-100 mg/5 mL solution 10 mL 07-10 04:30: 00 07-10 03:23 :00 No 10mL 10 mL, Oral, ONCE, 1 dose, 07/09/20 at 2330, FAWN [facility] LORazepam (ATIVAN) injection 1 mg 07-10 03:45: 00 07-10 03:14 :00 No 1mg 1 mg, Slow IV Push, ONCE, 1 dose, 07/09/20 at 2245, STAT [facility] morpHINE injection 4 mg 07-10 03:30: 00 07-10 03:16 :00 No 4mg 4 mg, Slow IV Push, ONCE, 1 dose, 07/09/20 at 2230, STAT [facility] pantoprazol e (PROTONIX) 40 mg in NaCl 0.9% (NS) 100 mL MINI-BAG 07-10 02:30: 00 07-10 01:48 :00 No 40mg 40 mg, IV Piggyback, ONCE, 1 dose, 07/09/20 at 2130, 100 mL [facility] ondansetron (ZOFRAN (PF)) injection 4 mg 07-10 02:00: 00 07-10 01:03 :00 No 4mg 4 mg, Slow IV Push, ONCE, 1 dose, 07/09/20 at 2100, FAWN [facility] morpHINE injection 4 mg 07-10 02:00: 00 07-10 01:03 :00 No 4mg 4 mg, Slow IV Push, ONCE, 1 dose, 07/09/20 at 2100, STAT [facility] nitroglycer in (NITROSTAT) sublingual tablet 0.4 mg 07-10 02:00: 00 07-10 01:02 :00 No .4mg 0.4 mg, Sublingual , ONCE, 1 dose, 07/09/20 at 2100, FAWN [facility] pantoprazol e (PROTONIX) 40 mg EC tablet 07-10 00:00: 00 08-29 00:00 :00 No [id number] 40mg Take 1 tablet by mouth daily. [facility] dicyclomine 20 mg tablet 07-10 00:00: 00 08-29 00:00 :00 No [id number] 20mg Take 1 tablet by mouth every 6 (six) hours as needed for Abdominal pain. [facility] benzonatate 200 mg capsule 07-10 00:00: 00 08-29 00:00 :00 No [id number] 200mg Take 1 capsule by mouth 3 (three) times daily as needed for Cough. [facility] ibuprofen 800 mg tablet 2018-10 00:00: 00 08-29 00:00 :00 No [id number] 800mg Take 1 tablet by mouth every 8 (eight) hours as needed for Pain (scale 4-6). [facility] cyclobenzap rine 5 mg tablet 03-30 00:00: 00 08-29 00:00 :00 No [id number] 5mg Take 1 tablet by mouth 3 (three) times daily as needed for Muscle Spasms. [facility] LORazepam (ATIVAN) 0.5 mg tablet 06-14 00:00: 00 08-29 00:00 :00 No .5mg Take 1 tablet by mouth 2 (two) times daily as needed for Anxiety. [facility] levothyroxi ne 125 mcg tablet 05-11 10:32: 30 Yes 125ug Take 125 mcg by mouth every morning. [facility] Vital Signs Vital Name Observation Time Observation Value Comments S ource Systolic blood pressure 2024-02-04 18:48:00 142 mm[Hg] [facility] Diastolic blood pressure 2024-02-04 18:48:00 97 mm[Hg] [facility] Heart rate 2024-02-04 18:48:00 84 /min [facility] Respiratory rate 2024-02-04 18:48:00 16 /min [facility] Oxygen saturation in Arterial blood by Pulse oximetry 2024-02-04 18:48:00 97 /min [facility] Body temperature 2024-02-04 15:46:00 36.67 [facility] Body height 2024-02-04 15:46:00 172.7 cm [facility] Body weight 2024-02-04 15:46:00 111.131 kg [facility] BMI 2024-02-04 15:46:00 37.25 kg/m2 [facility] Heart rate 2023-12-28 09:23:00 84 /min [facility] hospital Respiratory rate 2023-12-28 09:23:00 16 /min [facility] Oxygen saturation in Arterial blood by Pulse oximetry 2023-12-28 09:23:00 96 /min [facility] Systolic blood pressure 2023-12-28 09:00:00 131 mm[Hg] [facility] Diastolic blood pressure 2023-12-28 09:00:00 81 mm[Hg] [facility] Body temperature 2023-12-28 08:13:00 37 [facility] Body height 2023-12-28 08:13:00 172.7 cm [facility] Body weight 2023-12-28 08:13:00 110.632 kg [facility] BMI 2023-12-28 08:13:00 37.08 kg/m2 [facility] Systolic blood pressure 2023-11-06 08:00:00 117 mm[Hg] [facility] Diastolic blood pressure 2023-11-06 08:00:00 75 mm[Hg] [facility] Heart rate 2023-11-06 08:00:00 80 /min [facility] Body temperature 2023-11-06 08:00:00 37 [facility] Respiratory rate 2023-11-06 08:00:00 18 /min [facility] Oxygen saturation in Arterial blood by Pulse oximetry 2023-11-06 08:00:00 97 /min [facility] Body height 2023-11-06 05:50:00 172.7 cm [facility] Body weight 2023-11-06 05:50:00 113.309 kg [facility] BMI 2023-11-06 05:50:00 37.98 kg/m2 [facility] Systolic blood pressure 2023-11-01 10:00:00 142 mm[Hg] [facility] Diastolic blood pressure 2023-11-01 10:00:00 81 mm[Hg] [facility] Heart rate 2023-11-01 10:00:00 79 /min [facility] Body temperature 2023-11-01 10:00:00 37.17 [facility] Respiratory rate 2023-11-01 10:00:00 16 /min [facility] Oxygen saturation in Arterial blood by Pulse oximetry 2023-11-01 10:00:00 94 /min [facility] Body height 2023-11-01 05:37:00 172.7 cm [facility] Body weight 2023-11-01 05:37:00 111.131 kg [facility] BMI 2023-11-01 05:37:00 37.25 kg/m2 [facility] Systolic blood pressure 2023-10-23 08:00:00 140 mm[Hg] [facility] Diastolic blood pressure 2023-10-23 08:00:00 88 mm[Hg] [facility] Heart rate 2023-10-23 08:00:00 89 /min [facility] Oxygen saturation in Arterial blood by Pulse oximetry 2023-10-23 08:00:00 94 /min [facility] Respiratory rate 2023-10-23 05:53:00 16 /min [facility] Body temperature 2023-10-23 05:45:00 36.72 [facility] Body height 2023-10-23 05:45:00 172.7 cm [facility] Body weight 2023-10-23 05:45:00 113.399 kg [facility] BMI 2023-10-23 05:45:00 38.01 kg/m2 [facility] Systolic blood pressure 2023-09-26 08:00:00 159 mm[Hg] [facility] Diastolic blood pressure 2023-09-26 08:00:00 80 mm[Hg] [facility] Heart rate 2023-09-26 08:00:00 75 /min [facility] 2023-09-26 08:00:00 20 /min [facility] Oxygen saturation in Arterial blood by Pulse oximetry 2023-09-26 08:00:00 94 /min [facility] Body temperature 2023-09-26 05:02:00 36.72 [facility] Systolic blood pressure 2023-08-24 08:14:00 140 mm[Hg] [facility] Diastolic blood pressure 2023-08-24 08:14:00 73 mm[Hg] [facility] Heart rate 2023-08-24 08:14:00 75 /min [facility] Body temperature 2023-08-24 08:14:00 36.67 [facility] Respiratory rate 2023-08-24 08:14:00 18 /min [facility] Oxygen saturation in Arterial blood by Pulse oximetry 2023-08-24 08:14:00 96 /min [facility] Body height 2023-08-24 03:41:00 172.7 cm [facility] Body weight 2023-08-24 03:41:00 113.399 kg [facility] BMI 2023-08-24 03:41:00 38.01 kg/m2 [facility] Systolic blood pressure 2023-07-07 10:53:00 140 mm[Hg] [facility] Diastolic blood pressure 2023-07-07 10:53:00 83 mm[Hg] [facility] Heart rate 2023-07-07 10:53:00 75 /min [facility] Respiratory rate 2023-07-07 10:53:00 16 /min [facility] Oxygen saturation in Arterial blood by Pulse oximetry 2023-07-07 10:53:00 97 /min [facility] Body temperature 2023-07-07 08:57:00 36.44 [facility] Body height 2023-07-07 08:57:00 172.7 cm [facility] Body weight 2023-07-07 08:57:00 113.399 kg [facility] BMI 2023-07-07 08:57:00 38.01 kg/m2 [facility] Systolic blood pressure 2023-05-26 03:30:00 140 mm[Hg] [facility] Diastolic blood pressure 2023-05-26 03:30:00 78 mm[Hg] [facility] Heart rate 2023-05-26 03:30:00 80 /min [facility] Respiratory rate 2023-05-26 03:30:00 23 /min [facility] Oxygen saturation in Arterial blood by Pulse oximetry 2023-05-26 03:30:00 94 /min [facility] Body temperature 2023-05-26 03:00:00 36.78 [facility] Body weight 2023-05-25 22:19:00 121.564 kg [facility] BMI 2023-05-25 22:19:00 40.75 kg/m2 [facility] Systolic blood pressure 2023-02-21 01:51:00 123 mm[Hg] [facility] Diastolic blood pressure 2023-02-21 01:51:00 74 mm[Hg] [facility] Heart rate 2023-02-20 23:03:00 95 /min [facility] Body temperature 2023-02-20 23:03:00 38.28 [facility] Respiratory rate 2023-02-20 23:03:00 18 /min [facility] Body height 2023-02-20 23:03:00 172.7 cm [facility] Body weight 2023-02-20 23:03:00 121.564 kg [facility] BMI 2023-02-20 23:03:00 40.75 kg/m2 [facility] Oxygen saturation in Arterial blood by Pulse oximetry 2023-02-20 23:03:00 97 /min [facility] Systolic blood pressure 2022-12-29 10:00:00 142 mm[Hg] [facility] Diastolic blood pressure 2022-12-29 10:00:00 78 mm[Hg] [facility] Heart rate 2022-12-29 10:00:00 71 /min [facility] Oxygen saturation in Arterial blood by Pulse oximetry 2022-12-29 09:57:00 96 /min [facility] Body temperature 2022-12-29 06:35:00 36.89 [facility] Respiratory rate 2022-12-29 06:35:00 20 /min [facility] Body height 2022-12-29 06:35:00 172.7 cm [facility] Body weight 2022-12-29 06:35:00 121.745 kg [facility] BMI 2022-12-29 06:35:00 40.81 kg/m2 [facility] Systolic blood pressure 2022-11-21 08:14:00 162 mm[Hg] [facility] Diastolic blood pressure 2022-11-21 08:14:00 101 mm[Hg] [facility] Heart rate 2022-11-21 08:09:00 92 /min [facility] Body temperature 2022-11-21 08:09:00 37.11 [facility] Respiratory rate 2022-11-21 08:09:00 16 /min [facility] Body height 2022-11-21 08:09:00 172.7 cm [facility] Body weight 2022-11-21 08:09:00 115.667 kg [facility] BMI 2022-11-21 08:09:00 38.77 kg/m2 [facility] Oxygen saturation in Arterial blood by Pulse oximetry 2022-11-21 08:09:00 97 /min [facility] Systolic blood pressure 2022-10-29 07:34:00 167 mm[Hg] [facility] Diastolic blood pressure 2022-10-29 07:34:00 97 mm[Hg] [facility] Heart rate 2022-10-29 07:34:00 93 /min [facility] Body temperature 2022-10-29 07:34:00 37.39 [facility] Respiratory rate 2022-10-29 07:34:00 20 /min [facility] Body height 2022-10-29 07:34:00 172.7 cm [facility] Body weight 2022-10-29 07:34:00 113.399 kg [facility] BMI 2022-10-29 07:34:00 38.01 kg/m2 [facility] Oxygen saturation in Arterial blood by Pulse oximetry 2022-10-29 07:34:00 97 /min [facility] Systolic blood pressure 2022-06-02 05:00:00 165 mm[Hg] [facility] Diastolic blood pressure 2022-06-02 05:00:00 119 mm[Hg] [facility] Heart rate 2022-06-02 05:00:00 74 /min [facility] Respiratory rate 2022-06-02 05:00:00 23 /min [facility] Oxygen saturation in Arterial blood by Pulse oximetry 2022-06-02 05:00:00 95 /min [facility] Body temperature 2022-06-02 04:41:00 36.67 [facility] Systolic blood pressure 2022-05-28 18:36:21 147 mm[Hg] [facility] Diastolic blood pressure 2022-05-28 18:36:21 97 mm[Hg] [facility] Heart rate 2022-05-28 18:36:21 62 /min [facility] Respiratory rate 2022-05-28 18:36:21 18 /min [facility] Oxygen saturation in Arterial blood by Pulse oximetry 2022-05-28 18:36:21 96 /min [facility] Body temperature 2022-05-28 15:06:00 37.22 [facility] Body height 2022-05-28 15:06:00 172.7 cm [facility] Body weight 2022-05-28 15:06:00 124.739 kg [facility] BMI 2022-05-28 15:06:00 41.81 kg/m2 [facility] Systolic blood pressure 2022-05-06 06:42:00 137 mm[Hg] [facility] Diastolic blood pressure 2022-05-06 06:42:00 90 mm[Hg] [facility] Heart rate 2022-05-06 06:42:00 81 [facility] 2022-05-06 06:42:00 16 /min [facility] Oxygen saturation in Arterial blood by Pulse oximetry 2022-05-06 06:42:00 94 /min [facility] Body temperature 2022-05-06 03:30:00 36.78 [facility] Body height 2022-05-06 03:30:00 172.7 cm [facility] Body weight 2022-05-06 03:30:00 117.935 kg [facility] BMI 2022-05-06 03:30:00 39.53 kg/m2 [facility] Systolic blood pressure 2022-05-01 13:30:00 147 mm[Hg] [facility] Diastolic blood pressure 2022-05-01 13:30:00 91 mm[Hg] [facility] Heart rate 2022-05-01 13:30:00 73 /min [facility] Respiratory rate 2022-05-01 13:30:00 17 /min [facility] Oxygen saturation in Arterial blood by Pulse oximetry 2022-05-01 13:30:00 95 /min [facility] Body temperature 2022-05-01 12:28:00 36.78 [facility] Body weight 2022-05-01 12:28:00 121.564 kg [facility] BMI 2022-05-01 12:28:00 40.75 kg/m2 [facility] Systolic blood pressure 2022-02-08 07:00:00 133 mm[Hg] [facility] Diastolic blood pressure 2022-02-08 07:00:00 94 mm[Hg] [facility] Heart rate 2022-02-08 07:00:00 77 /min [facility] Respiratory rate 2022-02-08 07:00:00 21 /min [facility] Oxygen saturation in Arterial blood by Pulse oximetry 2022-02-08 07:00:00 95 /min [facility] Body temperature 2022-02-08 06:04:00 36.5 [facility] Body height 2022-02-08 06:04:00 172.7 cm [facility] Body weight 2022-02-08 06:04:00 113.399 kg [facility] BMI 2022-02-08 06:04:00 38.01 kg/m2 [facility] Systolic blood pressure 2021-10-14 22:36:00 152 mm[Hg] [facility] Diastolic blood pressure 2021-10-14 22:36:00 87 mm[Hg] [facility] Heart rate 2021-10-14 22:36:00 95 /min [facility] Body temperature 2021-10-14 22:36:00 36.94 [facility] Respiratory rate 2021-10-14 22:36:00 18 /min [facility] Body weight 2021-10-14 22:36:00 122.29 kg [facility] BMI 2021-10-14 22:36:00 40.99 kg/m2 [facility] Oxygen saturation in Arterial blood by Pulse oximetry 2021-10-14 22:36:00 97 /min [facility] Systolic blood pressure 2021-05-15 17:15:00 148 mm[Hg] [facility] Diastolic blood pressure 2021-05-15 17:15:00 84 mm[Hg] [facility] Heart rate 2021-05-15 17:15:00 99 /min [facility] Body temperature 2021-05-15 17:15:00 36.5 [facility] Respiratory rate 2021-05-15 17:15:00 20 /min [facility] Body weight 2021-05-15 17:15:00 117.073 kg [facility] BMI 2021-05-15 17:15:00 39.24 kg/m2 [facility] Oxygen saturation in Arterial blood by Pulse oximetry 2021-05-15 17:15:00 97 /min [facility] Systolic blood pressure 2021-05-08 18:10:00 156 mm[Hg] [facility] Diastolic blood pressure 2021-05-08 18:10:00 95 mm[Hg] [facility] Heart rate 2021-05-08 18:10:00 99 /min [facility] Body temperature 2021-05-08 18:10:00 36.06 [facility] Respiratory rate 2021-05-08 18:10:00 18 /min [facility] Body weight 2021-05-08 18:10:00 116.756 kg [facility] BMI 2021-05-08 18:10:00 39.14 kg/m2 [facility] Oxygen saturation in Arterial blood by Pulse oximetry 2021-05-08 18:10:00 96 /min [facility] Systolic blood pressure 2021-05-06 09:26:00 145 mm[Hg] [facility] Diastolic blood pressure 2021-05-06 09:26:00 93 mm[Hg] [facility] Heart rate 2021-05-06 09:26:00 79 /min [facility] Respiratory rate 2021-05-06 09:26:00 20 /min [facility] Oxygen saturation in Arterial blood by Pulse oximetry 2021-05-06 09:26:00 97 /min [facility] Body temperature 2021-05-06 07:56:00 37.11 [facility] Body height 2021-05-06 07:56:00 172.7 cm [facility] Body weight 2021-05-06 07:56:00 118.434 kg [facility] BMI 2021-05-06 07:56:00 39.70 kg/m2 [facility] Systolic blood pressure 2021-03-15 06:19:00 127 mm[Hg] [facility] Diastolic blood pressure 2021-03-15 06:19:00 79 mm[Hg] [facility] Heart rate 2021-03-15 06:19:00 78 /min [facility] Respiratory rate 2021-03-15 06:19:00 23 /min [facility] Oxygen saturation in Arterial blood by Pulse oximetry 2021-03-15 06:19:00 96 /min [facility] Body temperature 2021-03-15 03:05:45 37 [facility] Body weight 2021-03-15 02:46:00 114.76 kg [facility] BMI 2021-03-15 02:46:00 38.47 kg/m2 [facility] Systolic blood pressure 2021-03-15 06:19:00 127 mm[Hg] [facility] Diastolic blood pressure 2021-03-15 06:19:00 79 mm[Hg] [facility] Heart rate 2021-03-15 06:19:00 78 /min [facility] Respiratory rate 2021-03-15 06:19:00 23 /min [facility] Oxygen saturation in Arterial blood by Pulse oximetry 2021-03-15 06:19:00 96 /min [facility] Body temperature 2021-03-15 03:05:45 37 [facility] Body weight 2021-03-15 02:46:00 114.76 kg [facility] BMI 2021-03-15 02:46:00 38.47 kg/m2 [facility] Systolic blood pressure 2020-09-09 00:10:00 124 mm[Hg] [facility] Diastolic blood pressure 2020-09-09 00:10:00 77 mm[Hg] [facility] Heart rate 2020-09-09 00:10:00 83 /min [facility] Respiratory rate 2020-09-09 00:10:00 16 /min [facility] Oxygen saturation in Arterial blood by Pulse oximetry 2020-09-09 00:10:00 97 /min [facility] Body temperature 2020-09-08 23:14:00 37.39 [facility] Body weight 2020-09-08 22:49:00 107.956 kg [facility] BMI 2020-09-08 22:49:00 36.19 kg/m2 [facility] Systolic blood pressure 2020-09-09 00:10:00 124 mm[Hg] [facility] Diastolic blood pressure 2020-09-09 00:10:00 77 mm[Hg] [facility] Heart rate 2020-09-09 00:10:00 83 /min [facility] Respiratory rate 2020-09-09 00:10:00 16 /min [facility] Oxygen saturation in Arterial blood by Pulse oximetry 2020-09-09 00:10:00 97 /min [facility] Body temperature 2020-09-08 23:14:00 37.39 [facility] Body weight 2020-09-08 22:49:00 107.956 kg [facility] BMI 2020-09-08 22:49:00 36.19 kg/m2 [facility] Systolic blood pressure 2020-09-06 19:30:00 115 mm[Hg] [facility] Diastolic blood pressure 2020-09-06 19:30:00 65 mm[Hg] [facility] Heart rate 2020-09-06 19:30:00 67 /min [facility] Body temperature 2020-09-06 19:30:00 36.83 [facility] Respiratory rate 2020-09-06 19:30:00 19 /min [facility] Oxygen saturation in Arterial blood by Pulse oximetry 2020-09-06 19:30:00 99 /min [facility] Body weight 2020-09-06 15:41:00 107.956 kg [facility] BMI 2020-09-06 15:41:00 36.19 kg/m2 [facility] Systolic blood pressure 2020-09-06 19:30:00 115 mm[Hg] [facility] Diastolic blood pressure 2020-09-06 19:30:00 65 mm[Hg] [facility] Heart rate 2020-09-06 19:30:00 67 /min [facility] Body temperature 2020-09-06 19:30:00 36.83 [facility] Respiratory rate 2020-09-06 19:30:00 19 /min [facility] Oxygen saturation in Arterial blood by Pulse oximetry 2020-09-06 19:30:00 99 /min [facility] Body weight 2020-09-06 15:41:00 107.956 kg [facility] BMI 2020-09-06 15:41:00 36.19 kg/m2 [facility] Systolic blood pressure 2020-08-30 13:11:00 136 mm[Hg] [facility] Diastolic blood pressure 2020-08-30 13:11:00 77 mm[Hg] [facility] Heart rate 2020-08-30 13:11:00 74 /min [facility] Body temperature 2020-08-30 13:11:00 36.5 [facility] Respiratory rate 2020-08-30 13:11:00 18 /min [facility] Oxygen saturation in Arterial blood by Pulse oximetry 2020-08-30 13:11:00 96 /min [facility] Body weight 2020-08-30 09:00:00 107.956 kg [facility] BMI 2020-08-30 09:00:00 36.19 kg/m2 [facility] Body height 2020-08-27 07:49:00 172.7 cm [facility] Systolic blood pressure 2020-08-30 13:11:00 136 mm[Hg] [facility] Diastolic blood pressure 2020-08-30 13:11:00 77 mm[Hg] [facility] Heart rate 2020-08-30 13:11:00 74 /min [facility] Body temperature 2020-08-30 13:11:00 36.5 [facility] Respiratory rate 2020-08-30 13:11:00 18 /min [facility] Oxygen saturation in Arterial blood by Pulse oximetry 2020-08-30 13:11:00 96 /min [facility] Body weight 2020-08-30 09:00:00 107.956 kg [facility] BMI 2020-08-30 09:00:00 36.19 kg/m2 [facility] Body height 2020-08-27 07:49:00 172.7 cm [facility] Systolic blood pressure 2020-07-10 05:30:00 123 mm[Hg] [facility] Diastolic blood pressure 2020-07-10 05:30:00 77 mm[Hg] [facility] Heart rate 2020-07-10 05:30:00 75 /min [facility] Respiratory rate 2020-07-10 05:30:00 19 /min [facility] Oxygen saturation in Arterial blood by Pulse oximetry 2020-07-10 05:30:00 97 /min [facility] Body temperature 2020-07-10 00:48:00 37.39 [facility] Body height 2020-07-10 00:48:00 172.7 cm [facility] Body weight 2020-07-10 00:43:00 99.791 kg [facility] BMI 2020-07-10 00:43:00 33.45 kg/m2 [facility] Systolic blood pressure 2020-07-10 05:30:00 123 mm[Hg] [facility] Diastolic blood pressure 2020-07-10 05:30:00 77 mm[Hg] [facility] Heart rate 2020-07-10 05:30:00 75 /min [facility] Respiratory rate 2020-07-10 05:30:00 19 /min [facility] Oxygen saturation in Arterial blood by Pulse oximetry 2020-07-10 05:30:00 97 /min [facility] Body temperature 2020-07-10 00:48:00 37.39 [facility] Body height 2020-07-10 00:48:00 172.7 cm [facility] Body weight 2020-07-10 00:43:00 99.791 kg [facility] BMI 2020-07-10 00:43:00 33.45 kg/m2 [facility] Procedures Procedure Date / Time Performed Performing Clinician Source URINALYSIS 2024-02-04 18:16:00 Babs Bustamante [facility] CT ABDOMEN PELVIS W CONTRAST 2024-02-04 16:52:00 Babs Bustamante [facility] LIPASE 2024-02-04 16:00:00 Babs Bustamante [facility] COMP. METABOLIC PANEL ([id number]) 2024-02-04 16:00:00 Babs Bustamante [facility] CBC WITH DIFF 2024-02-04 16:00:00 Irina Bustamanteherine [facility] CONSENT/REFUSAL FOR DIAGNOSIS AND TREATMENT 2023-12-28 08:06:27 Doctor Unassigned, [facility] EKG-12 LEAD 2023-11-06 08:26:13 Nidia Solano [facility] LIPASE 2023-11-06 06:15:00 Nidia Solano [facility] MAGNESIUM 2023-11-06 06:15:00 Nidia [facility] COMP. METABOLIC PANEL ([id number]) 2023-11-06 06:15:00 Nidia Solano [facility] CBC WITH DIFF 2023-11-06 06:15:00 Nidia Solano [facility] URINALYSIS 2023-11-06 06:15:00 Nidia [facility]ano [facility] CONSENT/REFUSAL FOR DIAGNOSIS AND TREATMENT 2023-11-06 05:40:44 Doctor Unassigned, [facility] CT ABDOMEN PELVIS W CONTRAST 2023-11-01 08:32:40 Jose Francisco [facility] LIPASE 2023-11-01 05:45:00 Jose Francisco [facility]ters [facility] COMP. METABOLIC PANEL ([id number]) 2023-11-01 05:45:00 Jose Francisco [facility] CBC WITH DIFF 2023-11-01 05:45:00 Jose Francisco [facility] URINALYSIS 2023-11-01 05:45:00 Jose Francisco [facility]ters [facility] POCT GLUCOSE (AUTOMATED) 2023-11-01 05:41:00 Lena Walters [facility] CONSENT/REFUSAL FOR DIAGNOSIS AND TREATMENT 2023-11-01 05:29:45 Doctor Unassigned, [facility] CT ABDOMEN PELVIS W CONTRAST 2023-10-23 07:06:44 Chapito Contreras [facility] LIPASE 2023-10-23 05:50:00 Chapito Contreras [facility] COMP. METABOLIC PANEL ([id number]) 2023-10-23 05:50:00 Chapito Contreras [facility] CBC WITH DIFF 2023-10-23 05:50:00 Chapito Contreras [facility] URINALYSIS 2023-10-23 05:50:00 Chapito Contreras [facility] CONSENT/REFUSAL FOR DIAGNOSIS AND TREATMENT 2023-10-23 05:34:08 Doctor Unassigned, [facility] URINALYSIS 2023-09-26 06:12:00 Jose Barrett[facility]varez [facility] LIPASE 2023-09-26 05:12:00 [facility] HEPATIC FUNCTION PANEL ([id number]) (ALB,T.PRO,BILI T,BU/BC,ALT,AST,ALK PHOS) 2023-09-26 05:12:00 [facility] BASIC METABOLIC PANEL (NA, K, CL, CO2, GLUCOSE, BUN, CREATININE, CA) 2023-09-26 05:12:00 Jose [facility] CBC WITH DIFF 2023-09-26 05:12:00 Jose [facility] NOTICE OF PRIVACY PRACTICES 2023-09-26 04:50:48 Doctor Unassigned, [facility] CONSENT/REFUSAL FOR DIAGNOSIS AND TREATMENT 2023-09-26 04:50:08 Doctor Unassigned, [facility] CT CHEST PULMONARY ANGIOGRAM 2023-08-24 08:02:29 Patrick Vergara [facility] XR CHEST 1 VW 2023-08-24 04:38:16 Patrick Vergara [facility] TROPONIN I 2023-08-24 04:29:00 Patrick Vergara [facility] COMP. METABOLIC PANEL ([id number]) 2023-08-24 04:29:00 Patrick Vergara [facility] CBC WITH DIFF 2023-08-24 04:29:00 Patrick Vergara [facility] CONSENT/REFUSAL FOR DIAGNOSIS AND TREATMENT 2023-08-24 03:41:11 Doctor Unassigned, [facility] LIPASE 2023-07-07 09:22:00 Chapito Contreras [facility] TROPONIN I 2023-07-07 09:22:00 Chapito Contreras [facility] COMP. METABOLIC PANEL ([id number]) 2023-07-07 09:22:00 Chapito Contreras [facility] CBC WITH DIFF 2023-07-07 09:22:00 [facility] 2023-07-07 09:22:00 Chapito Contreras [facility] CONSENT/REFUSAL FOR DIAGNOSIS AND TREATMENT 2023-07-07 08:49:51 Doctor Unassigned, [facility] POCT GLUCOSE (AUTOMATED) 2023-05-26 02:17:00 Nidia Solano [facility] URINALYSIS 2023-05-26 01:24:00 Nidia Solanoe [facility] POCT GLUCOSE (AUTOMATED) 2023-05-26 01:22:00 Nidia Solano [facility] TROPONIN I 2023-05-26 00:54:00 Nidia Solano [facility] COVID-19 (ID NOW RAPID TESTING) 2023-05-26 00:54:00 Nidia Solano [facility] ASSIGNMENT OF BENEFITS 2023-05-26 00:29:59 Docto r Unassigned, [facility] XR CHEST 1 VW 2023-05-25 22:41:21 Nidia Solano [facility] LIPASE 2023-05-25 22:33:00 Nidia Solano [facility] MAGNESIUM 2023-05-25 22:33:00 Nidia Solano [facility] TROPONIN I 2023-05-25 22:33:00 Nidia Solano [facility] COMP. METABOLIC PANEL ([id number]) 2023-05-25 22:33:00 Nidia Solano [facility] CBC WITH DIFF 2023-05-25 22:33:00 Nidia Solano [facility] N-TERMINAL PRO-BNP 2023-05-25 22:33:00 Nidia Solano [facility] CONSENT/REFUSAL FOR DIAGNOSIS AND TREATMENT 2023-05-25 22:07:05 Doctor Unassigned, [facility] COVID-19 (ID NOW RAPID TESTING) 2023-02-20 23:30:00 Sofia Escobar [facility] CONSENT/REFUSAL FOR DIAGNOSIS AND TREATMENT 2023-02-20 22:54:00 Doctor Unassigned, [facility] CT ABDOMEN PELVIS W CONTRAST 2022-12-29 08:28:18 Chapito Contreras [facility] LIPASE 2022-12-29 07:11:00 Chapito Contreras [facility] COMP. METABOLIC PANEL ([id number]) 2022-12-29 07:11:00 Chapito Contreras [facility] CBC WITH DIFF 2022-12-29 07:11:00 Chapito Contreras [facility] URINALYSIS 2022-12-29 07:11:00 Ben [facility] CONSENT/REFUSAL FOR DIAGNOSIS AND TREATMENT 2022-12-29 06:24:27 Doctor Unassigned, [facility] CONSENT/REFUSAL FOR DIAGNOSIS AND TREATMENT 2022-11-21 08:05:19 Doctor Unassigned, [facility] RAPID STREP SCREEN FOR GROUP A 2022-10-29 07:36:00 Marie Morales [facility] CONSENT/REFUSAL FOR DIAGNOSIS AND TREATMENT 2022-10-29 07:23:03 Doctor Unassigned, [facility] CONSENT/REFUSAL FOR DIAGNOSIS AND TREATMENT 2022-06-02 04:34:17 Doctor Unassigned, [facility] FREE T4 2022-05-28 16:06:00 Saqib Clarke [facility] THYROID STIMULATING HORMONE 2022-05-28 16:06:00 Saqib Clarke [facility] COMP. METABOLIC PANEL ([id number]) 2022-05-28 16:06:00 Saqib Clarke [facility] CBC WITH DIFF 2022-05-28 16:06:00 Saqib Clarke [facility] FREE T3 2022-05-28 16:06:00 Saqib Clarke [facility] CONSENT/REFUSAL FOR DIAGNOSIS AND TREATMENT 2022-05-28 14:55:38 Doctor Unassigned, [facility] CT ABDOMEN PELVIS W CONTRAST 2022-05-06 06:06:56 Nidia Solano [facility] LIPASE 2022-05-06 05:17:00 Nidia Solano [facility] MAGNESIUM 2022-05-06 05:17:00 Nidia Solano [facility] TROPONIN I 2022-05-06 05:17:00 Nidia Solano [facility] COMP. METABOLIC PANEL ([id number]) 2022-05-06 05:17:00 Nidia Solano [facility] CBC WITH DIFF 2022-05-06 05:17:00 Nidia Solano [facility] URINALYSIS 2022-05-06 05:17:00 Nidia Solano [facility] RAPID INFLUENZA A/B 2022-05-06 03:48:00 Nidia Solano [facility] COVID-19 (ID NOW RAPID TESTING) 2022-05-06 03:48:00 Nidia Solano [facility] CONSENT/REFUSAL FOR DIAGNOSIS AND TREATMENT 2022-05-06 03:22:49 Doctor Unassigned, [facility] COMP. METABOLIC PANEL ([id number]) 2022-05-01 12:42:00 Saqib Clarke [facility] CBC WITH DIFF 2022-05-01 12:42:00 Singer [facility] CONSENT/REFUSAL FOR DIAGNOSIS AND TREATMENT 2022-05-01 12:23:44 Doctor Unassigned, [facility] URINALYSIS 2022-02-08 06:27:00 Benjamin Ashford [facility] URINE DRUG (IMMUNOASSAY) - COMPREHENSIVE DRUG SCREEN W/O REFLEX 2022-02-08 06:27:00 Benjamin Ashford [facility] LIPASE 2022-02-08 06:15:00 Benjamin Ashford [facility] TROPONIN I 2022-02-08 06:15:00 Ashford, [facility] COMP. METABOLIC PANEL ([id number]) 2022-02-08 06:15:00 Benjamin Ashford [facility] ETHANOL 2022-02-08 06:15:00 Benjamin [facility]ford [facility] CBC WITH DIFF 2022-02-08 06:15:00 Benjamin Ashford [facility] PROTHROMBIN TIME / INR 2022-02-08 06:15:00 Jeremy Ashford [facility] ACTIVATED PARTIAL THRMPLAS ELAINE 2022-02-08 06:15:00 Benjamin Ashford [facility] N-TERMINAL PRO-BNP 2022-02-08 06:15:00 Benjamin Ashford [facility] NOTICE OF PRIVACY PRACTICES 2022-02-08 06:01:50 Doctor Unassigned, [facility] CONSENT/REFUSAL FOR DIAGNOSIS AND TREATMENT 2022-02-08 05:59:20 Doctor Unassigned, [facility] CT ABDOMEN PELVIS W CONTRAST 2021-10-15 00:40:39 Marie Morales [facility] LIPASE 2021-10-15 00:26:00 Marie Morales [facility] TROPONIN I 2021-10-15 00:26:00 Marie Morales [facility] COMP. METABOLIC PANEL ([id number]) 2021-10-15 00:26:00 Marie Morales [facility] CBC WITH DIFF 2021-10-15 00:26:00 Marie Morales [facility] NOTICE OF PRIVACY PRACTICES 2021-10-14 22:18:20 Doctor Unassigned, [facility] CONSENT/REFUSAL FOR DIAGNOSIS AND TREATMENT 2021-10-14 22:17:56 Doctor Unassigned, [facility] CT ABDOMEN PELVIS W CONTRAST 2021-03-15 04:54:23 Chapito Contreras [facility] COVID-19 (ID NOW RAPID TESTING) 2021-03-15 03:34:00 Chapito Contreras [facility] URINALYSIS 2021-03-15 03:16:00 Chapito Contreras [facility] COMP. METABOLIC PANEL ([id number]) 2021-03-15 03:11:00 Chapito Contreras [facility] CBC WITH DIFF 2021-03-15 03:11:00 Chapito Contreras [facility] CONSENT/REFUSAL FOR DIAGNOSIS AND TREATMENT 2021-03-15 02:38:38 Doctor Unassigned, [facility] LIPASE 2020-09-08 23:14:00 Clarke [facility] COMP. METABOLIC PANEL ([id number]) 2020-09-08 23:14[facility] 2020-09-08 23:14:00 Singer [facility] CONSENT/REFUSAL FOR DIAGNOSIS AND TREATMENT 2020-09-08 22:38:49 Doctor Unassigned, [facility] CT ABDOMEN PELVIS W CONTRAST 2020-09-06 17:05:33 Nidia Solano [facility] LACTIC ACID WHOLE BLOOD 2020-09-06 16:31:00 Nidia Solano [facility] LIPASE 2020-09-06 16:11:00 Nidia Solano [facility] MAGNESIUM 2020-09-06 16:11:00 Nidia [facility] COMP. METABOLIC PANEL ([id number]) 2020-09-06 16:11:00 Nidia Solano [facility] CBC WITH DIFF 2020-09-06 16:11:00 Nidia Solano [facility] NOTICE OF PRIVACY PRACTICES 2020-09-06 15:30:39 Doctor Unassigned, [facility] CONSENT/REFUSAL FOR DIAGNOSIS AND TREATMENT 2020-09-06 15:30:28 Doctor Unassigned, [facility] COMP. METABOLIC PANEL ([id number]) 2020-08-30 08:39:00 Babs Bustamante [facility] CBC WITH DIFF 2020-08-30 08:39:00 Babs Bustamante [facility] US ABDOMEN COMPLETE 2020-08-28 18:11:06 Patrick No [facility] ECHO ROUTINE W/DOPPLER COLOR 2020-08-28 16:34:45 Oneal [facility] HEPATIC FUNCTION PANEL ([id number]) (ALB,T.PRO,BILI T,BU/BC,ALT,AST,ALK PHOS) 2020-08-28 10:16:00 Favio Chang [facility] BASIC METABOLIC PANEL (NA, K, CL, CO2, GLUCOSE, BUN, CREATININE, CA) 2020-08-28 10:16:00 Oneal [facility] TROPONIN I 2020-08-27 18:11:00 Oneal [facility] POCT GLUCOSE (AUTOMATED) 2020-08-27 18:02:00 Clau No [facility] POCT GLUCOSE (AUTOMATED) 2020-08-27 13:49:00 Clau No [facility] TROPONIN I 2020-08-27 11:35:[address] [facility] [address] ABDOMEN PELVIS W WO CONTRAST 2020-08-27 07:38:49 Oneal [facility] COVID-19 (ID NOW RAPID TESTING) 2020-08-27 06:21:00 Dejon [facility] URINALYSIS 2020-08-27 06:20:00 Benjamin Ashford [facility] ADC / LCC - DRUG SCREEN TRIAGE 2020-08-27 06:20:00 Dejon [facility] XR CHEST 1 VW 2020-08-27 06:05:42 Benjamin Ashford [facility] LIPASE 2020-08-27 05:58:00 Benjamin Ashford [facility] TROPONIN I 2020-08-27 05:58:00 Benjamin Ashford [facility] THYROID STIMULATING HORMONE 2020-08-27 05:58:00 Oneal [facility] HEPATIC FUNCTION PANEL ([id number]) (ALB,T.PRO,BILI T,BU/BC,ALT,AST,ALK PHOS) 2020-08-27 05:58:00 Dejon [facility] BASIC METABOLIC PANEL (NA, K, CL, CO2, GLUCOSE, BUN, CREATININE, CA) 2020-08-27 05:58:00 Dejon [facility] LIPID PANEL ([id number])(TOTAL CHOLESTEROL, TRIGLYCERIDES, HDL) 2020-08-27 05:58:00 Gricelda No [facility] ETHANOL 2020-08-27 05:58:00 Benajmin Ashford [facility] CBC WITH DIFF 2020-08-27 05:58:00 Benjamin Ashford [facility] PROTHROMBIN TIME / INR 2020-08-27 05:58:00 Jeremy Ashford [facility] ACTIVATED PARTIAL THRMPLAS ELAINE 2020-08-27 05:58:00 Benjamin Ashford [facility] EKG-12 LEAD 2020-08-27 05:54:03 Benjamin Ashford [facility] NOTICE OF PRIVACY PRACTICES 2020-08-27 05:44:26 Doctor Unassigned, [facility] [facility] CONSENT/REFUSAL FOR DIAGNOSIS AND TREATMENT 2020-08-27 05:43:44 Doctor Unassigned, Reid [facility] CONSENT/REFUSAL FOR DIAGNOSIS AND TREATMENT 2020-08-27 05:43:43 Doctor Unassigned, Reid [facility] CT ABDOMEN PELVIS W CONTRAST 2020-07-10 05:12:21 Chapito Contreras [facility] TROPONIN I 2020-07-10 03:49:00 Chapito Contreras [facility] ADC / LCC - DRUG SCREEN TRIAGE 2020-07-10 03:13:00 Chapito Contreras [facility] XR CHEST 1 VW 2020-07-10 01:05:14 Chapito Contreras [facility] LIPASE 2020-07-10 00:55:00 Chapito Contreras [facility] TROPONIN I 2020-07-10 00:55:00 Chapito Contreras [facility] COMP. METABOLIC PANEL (64242) 2020-07-10 00:55:00 Chapito Contreras [facility] CBC WITH DIFF 2020-07-10 00:55:00 Chapito Contreras [facility] PROTHROMBIN TIME / INR 2020-07-10 00:55:00 Yesica Contreras [facility] D-DIMER 2020-07-10 00:55:00 Chapito Contrreas [facility] COVID-19 (ID NOW RAPID TESTING) 2020-07-10 00:55:00 Chapito Contreras [facility] EKG-12 LEAD 2020-07-10 00:52:35 Chapito Contreras [facility] Encounters Start Date/Time End Date/Time Encounter Type Admission Type Attending [facility] Care Department Encounter ID Source 2024-02-04 10:45:00 2024-02-04 14:36:00 Emergency X BABS BUSTAMANTE [facility] ERT [id number] [facility] 2024-02-04 10:45:00 2024-02-04 14:36:00 Emergency Babs Bustamante [facility] 1.2.840.114 350.1.13.10 4.2.7.2.686 [id number] [facility] 2023-12-28 03:16:00 2023-12-28 04:32:00 Emergency X CHAPITO CONTRERAS [facility] ERT [id number] [facility] 2023-12-28 03:16:00 2023-12-28 04:32:00 Emergency Chapito Contreras [facility] 1.2.840.114 350.1.13.10 4.2.7.2.686 [id number] 084 [id number] [facility] 2023-11-05 23:52:00 2023-11-06 02:37:00 Emergency X Nidia SOLANO [facility] ERT [id number] [facility] 2023-11-05 23:52:00 2023-11-06 02:37:00 Emergency SheilaNidia Haily [facility] 1.2.840.114 350.1.13.10 4.2.7.2.686 [id number] [id number] [facility] 2023-10-31 23:33:00 2023-11-01 04:19:00 Emergency X JOSE FRANCISCO WALTERS [facility] ERT [id number] [facility] 2023-10-31 23:33:00 2023-11-01 04:19:00 Emergency Jose Francisco Walters [facility] 1.2.840.114 350.1.13.10 4.2.7.2.686 [id number] [id number] [facility] 2023-10-22 23:39:00 2023-10-23 02:31:00 Emergency X CHAPITO CONTRERAS [facility] ERT [id number] [facility] 2023-10-22 23:39:00 2023-10-23 02:31:00 Emergency Chapito Contreras [facility] 1.2.840.114 350.1.13.10 4.2.7.2.686 [id number] [facility] 2023-09-25 23:04:00 2023-09-26 02:30:00 Emergency X LOERN TAM HEE-KWANG [facility] ERT [id number] [facility] 2023-09-25 23:04:00 2023-09-26 02:30:00 Emergency Loren Tam [facility] 1.2.840.114 350.1.13.10 4.2.7.2.686 [id number] [id number] [facility] 2023-08-25 00:00:00 2023-08-25 00:00:00 Patient Secure Msg Doctor Unassigned, Reid [facility] 1.2.840.114 350.1.13.10 4.2.7.2.686 [id number] [facility] 2023-08-23 22:43:00 2023-08-24 02:41:00 Emergency Patrick Vergara S [facility] 1.2.840.114 350.1.13.10 4.2.7.2.686 [id number] 084 [id number] [facility] 2023-08-23 22:43:00 2023-08-24 02:41:00 Emergency X PATRICK VERGARA [facility] ERT [id number] [facility] 2023-07-07 03:51:00 2023-07-07 05:56:00 Emergency X CHAPITO CONTRERAS [facility] ERT [id number] [facility] 2023-07-07 03:51:00 2023-07-07 05:56:00 Emergency Chapito Contreras [facility] 1.2840.114 350.1.13.10 4.2.7.2.686 [id number] [id number] [facility] 2023-05-25 17:20:00 2023-05-25 22:37:00 Emergency X Nidia SOLANO [facility] ERT [id number] [facility] 2023-05-25 17:20:00 2023-05-25 22:37:00 Emergency Nidia Solano [facility] 1.2840.114 350.1.13.10 4.2.7.2.686 [id number] [facility] 2023-02-20 18:06:00 2023-02-20 21:03:00 Emergency X VALERIE SOFIA HUTCHINS [facility] ERT [id number] [facility] 2023-02-20 18:06:00 2023-02-20 21:03:00 Emergency Sofia Escobar [facility] 1.2840.114 350.1.13.10 4.2.7.2.686 [id number] [id number] [facility] 2023-02-20 00:00:00 2023-02-20 00:00:00 Orders Only Doctor Unassigned, Reid [facility] 1.2840.114 350.1.13.10 4.2.7.2.686 [id number] [facility] 2022-12-29 00:24:00 2022-12-29 05:29:00 Emergency X CHAPITO CONTRERAS [facility] ERT [id number] [facility] 2022-12-29 00:24:00 2022-12-29 05:29:00 Emergency Chapito Contreras [facility] 1.2.840.114 350.1.13.10 4.2.7.2.686 [id number] [id number] [facility] 2022-11-21 02:14:00 2022-11-21 03:04:00 Emergency X VERGARAPATRICK [facility] ERT [id number] [facility] 2022-11-21 02:14:00 2022-11-21 03:04:00 Emergency Vergara Patrick [facility] 1.2840.114 350.1.13.10 4.2.7.2.686 [id number] [id number] [facility] 2022-10-29 01:37:00 2022-10-29 02:25:00 Emergency X MARIE MORALES [facility] ERT [id number] [facility] 2022-10-29 01:37:00 2022-10-29 02:25:00 Emergency Marie Morales [facility] 1.840.114 350.1.13.10 4.2.7.2.686 [id number] [facility] 2022-06-01 23:34:00 2022-06-02 00:39:00 Emergency X SAQIB CLARKE [facility] ERT [id number] [facility] 2022-06-01 23:34:00 2022-06-02 00:39:00 Emergency Saqib Clarke [facility] 1.840.114 350.1.13.10 4.2.7.2.686 [id number] [facility] 2022-05-28 11:00:00 2022-05-28 13:39:00 Emergency X SAQIB CLARKE [facility] ERT [id number] [facility] 2022-05-28 11:00:00 2022-05-28 13:39:00 Emergency Saqib Clarke [facility] 1.2.840.114 350.1.13.10 4.2.7.2.686 [id number] [id number] [facility] 2022-05-05 22:33:00 2022-05-06 01:49:00 Emergency X Nidia SOLANO [facility] ERT [id number] [facility] 2022-05-05 22:33:00 2022-05-06 01:49:00 [facility] 1.2.840.114 350.1.13.10 4.2.7.2.686 [id number] [facility] 2022-05-01 07:33:00 2022-05-01 09:07:00 Emergency X SAQIB CLARKE [facility] ERT [id number] [facility] 2022-05-01 07:33:00 2022-05-01 09:07:00 Emergency Saqib Clarke [facility] 1.2.840.114 350.1.13.10 4.2.7.2.686 [id number] [facility] 2022-02-08 01:00:00 2022-02-08 03:03:00 Emergency X BENJAMIN ASHFORD [facility] ERT [id number] [facility] 2022-02-08 01:00:00 2022-02-08 03:03:00 Emergency DejonBenjamin [facility] 1.2.840.114 350.1.13.10 4.2.7.2.686 [id number] [facility] 2021-10-14 16:40:00 2021-10-14 19:30:00 Emergency X MARIE MORALES [facility] ERT [id number] [facility] 2021-10-14 16:40:00 2021-10-14 19:30:00 Emergency Marie Morales [facility] 1.2.840.114 350.1.13.10 4.2.7.2.686 [id number] 084 [id number] [facility] 2021-05-15 12:11:58 2021-05-15 23:59:00 [facility].840.114 350.1.13.10 4.2.7.2.686 [id number] [facility] 2021-05-15 12:30:00 2021-05-15 12:30:00 Outpatient R GEOFF CARDONA [facility] [id number] [facility] 2021-05-08 12:30:00 2021-05-08 23:59:00 Hospital Encounter Kiki Mathur [facility] 1.2.840.114 350.1.13.10 4.2.7.2.686 [id number] [facility] 2021-05-08 12:30:00 2021-05-08 12:30:00 Outpatient R KIKI MATHUR [facility] [id number] [facility] 2021-05-06 03:01:00 2021-05-06 04:28:00 Emergency Saqib Clarke [facility] 1.2.840.114 350.1.13.10 4.2.7.2.686 [id number] [id number] [facility] 2021-05-06 03:01:00 2021-05-06 04:28:00 Emergency X SAQIB CLARKE [facility] ERT [id number] [facility] 2021-03-14 21:49:00 2021-03-15 01:22:00 Emergency Chapito Contreras [facility] 1.2.840.114 350.1.13.10 4.2.7.2.686 [id number] [id number] [facility] 2021-03-14 21:49:00 2021-03-15 01:22:00 Emergency Chapito Contreras [facility] 1.2.840.114 350.1.13.10 4.2.7.2.686 [id number] [id number] 2021-03-14 21:49:00 2021-03-14 21:49:00 Emergency X CHAPITO CONTRERAS [facility] ERT [id number] [facility] 2020-09-08 16:52:00 2020-09-08 18:13:00 Emergency Saqib Clarke [facility] 1.2.840.114 350.1.13.10 4.2.7.2.686 [id number] [id number] [facility] 2020-09-08 16:52:00 2020-09-08 18:13:00 Emergency Saqib Clarke [facility] 1.2.840.114 350.1.13.10 4.2.7.2.686 [id number] 2020-09-08 16:52:00 2020-09-08 16:52:00 Emergency SAQIB MEDRANO [facility] ERT [id number] [facility] 2020-09-06 09:52:00 2020-09-06 13:38:00 Emergency Nidia Solano [facility] 1.2.840.114 350.1.13.10 4.2.7.2.686 [id number] [id number] [facility] 2020-09-06 09:52:00 2020-09-06 13:38:00 Emergency Nidia Solano [facility] 1.2.840.114 350.1.13.10 4.2.7.2.686 [id number] 2020-09-06 09:52:00 2020-09-06 09:52:00 Emergency X [facility] ERT [id number] [facility] 2020-09-06 00:00:00 2020-09-06 00:00:00 Orders Only Doctor Unassigned, Reid [facility] 1.2.840.114 350.1.13.10 4.2.7.2.686 [id number] [facility] 2020-09-06 00:00:00 2020-09-06 00:00:00 Orders Only Doctor Unassigned, Reid [facility] 1.2.840.114 350.1.13.10 4.2.7.2.686 [id number] 2020-08-26 23:45:00 2020-08-30 08:05:00 [facility].2.[facility].114 350.1.13.10 4.2.7.2.686 [id number] [facility] 2020-08-26 23:45:00 2020-08-30 08:05:00 [facility] 1.2.840.114 350.1.13.10 4.2.7.2.686 [id number] 2020-08-26 23:43:00 2020-08-26 23:43:00 Emergency X [facility] ERT [id number] [facility] 2020-07-09 19:41:00 2020-07-10 00:40:00 Emergency [facility] 1.2.840.114 350.1.13.10 4.2.7.2.686 [id number] [facility] 2020-07-09 19:41:00 2020-07-10 00:40:00 Emergency [facility] 1.2.840.114 350.1.13.10 4.2.7.2.686 [id number] 2020-07-09 19:41:00 2020-07-09 19:41:00 Emergency X CHAPITO CONTRERAS [facility] ERT [id number] [facility] Results Test Description Test Time Test [...] clinically for any signs and symptomsof cystitis. [facility] Xwkzc8407-50-84 17:02:35* Test Item Value Reference Range Interpretation Comme nts NA (test code = 4400708779) 139 mmol/L 135-145 K (test code = 0156948343) 4.4 mmol/L 3.5-5.0 CL (test code = 1764375110) 101 mmol/L 98-108 CO2 TOTAL (test code = 7474861164) 31 mmol/L 23-31 AGAP (test code = 8084529062) 7 2-16 BUN (test code = 3793279693) 12 mg/dL 7-23 GLUCOSE (test code = 5093369648) 100 mg/dL 70-110 CREATININE (test code = 2160-0) 0.61 mg/dL 0.60-1.25 TOTAL BILI (test code = 9599707370) 0.5 mg/dL 0.1-1.1 CALCIUM (test code = 0129530655) 9.8 mg/dL 8.6-10.6 T PROTEIN (test code = 6281057916) 8.4 g/dL 6.3-8.2 H ALBUMIN (test code = 9545705275) 4.7 g/dL 3.5-5.0 ALK PHOS (test code = 1668508535) 84 U/L 34-122 ALTv (test code = 1742-6) 23 U/L 5-50 AST(SGOT) (test code = 0587660371) 25 U/L 13-40 eGFR (test code = 01012-9) 120.0 mL/min/1.73m2 CKD-EPI eGFR (2020). Assuming creatinine has been stable day-to-day for at least three months, the eGFR indicates Category G1 (>= 90 mL/min/1.73 m2) Lab Interpretation (test code = 21332-1) [facility] Xyoca8533-97-43 17:01:54* Test Item Value Reference Range Interpretation Comme nts LIPASE (test code = 0105370815) 42 U/L 0-220 Lab Interpretation (test cod e = 32480-6) Normal [facility] 07:16:16* Test Item Value Reference Range Interpretation Comme nts MAGNESIUM (test code = 9385252149) 2.2 mg/dL 1.7-2.4 Lab Interpretation (test cod e = 44994-3) [facility] (20351)2023-11-06 07:16:15* Test Item Value Reference Range Interpretation Comme nts NA (test code = 9711898497) 138 mmol/L 135-145 K (test code = 1921723669) 3.5 mmol/L 3.5-5.0 CL (test code = 7020017263) 106 mmol/L 98-108 CO2 TOTAL (test code = 5337297329) 23 mmol/L 23-31 AGAP (test code = 7901911160) 9 2-16 BUN (test code = 8403385842) 18 mg/dL 7-23 GLUCOSE (test code = 7105920900) 110 mg/dL 70-110 CREATININE (test code = 3224684865) 0.73 mg/dL 0.60-1.25 TOTAL BILI (test code = 4573164526) 0.4 mg/dL 0.1-1.1 CALCIUM (test code = 6442096000) 9.4 mg/dL 8.6-10.6 T PROTEIN (test code = 6884213139) 8.5 g/dL 6.3-8.2 H ALBUMIN (test code = 9984460912) 4.8 g/dL 3.5-5.0 ALK PHOS (test code = 6983944207) 78 U/L 34-122 ALTv (test code = 1742-6) 42 U/L 5-50 AST(SGOT) (test code = 6482276038) 43 U/L 13-40 H eGFR (test code = 28310-0) 113.6 mL/min/1.73m2 CKD-EPI eGFR (2020). Assuming creatinine has been stable day-to-day for at least three months, the eGFR indicates Category G1 (>= 90 mL/min/1.73 m2) Lab Interpretation (test code = 36409-2) [facility] 07:16:15* Test Item Value Reference Range Interpretation Comme nts LIPASE (test code = 5216345922) 118 U/L 0-220 Lab Interpretation (test cod e = 56271-1) Normal [facility] with Djjm5449-49-25 06:49:12* Test Item Value Reference Range Interpretation [...] 33.5 g/dL 31.2-35.0 RDW-SD (test code = 18169-4) 46.4 fL 38.5-51.6 RDW-CV (test code = 788-0) 13.7 % 12.1-15.4 PLT (test code = 777-3) 323 See_Comment [Automated messa ge] The system which generated this result transmitted reference range: 150 - 328 10*3/?L. The reference range was not used to interpret this result as normal/abnormal. MPV (test code = 94563-5) 9.8 fL 9.8-13.0 NRBC/100 WBC (test code = 7421201612) 0.0 See_Comment [Automated [employer] ssage] The system which generated this result transmitted reference range: 0.0 - 10.0 /100 WBCs. The reference range was not used to interpret this result as normal/abnormal. NRBC x10^3 (test code = 4420615884) See_Comment [Automated [employer]] The system which generated this result transmitted reference range: 10*3/?L. The reference range was not used to interpret this result as normal/abnormal. GRAN MAT (NEUT) % (test code = 770-8) 56.1 % IMM GRAN % (test code = 2023995010) 0.50 % LYMPH % (test code = 736-9) 34.8 % MONO % (test code = 5905-5) 6.3 % EOS % (test code = 713-8) 1.4 % BASO % (test code = 706-2) 0.9 % GRAN MAT x10^3(ANC) (test code = 8711935046) 6.38 10*3/uL 1.99-6.95 IMM GRAN x10^3 (test code = 5434211646) 0.06 10*3/uL 0.00-0.06 LYMPH x10^3 (test code = 731-0) 3.95 10*3/uL 1.09-3.23 H MONO x10^3 (test code = 742-7) 0.71 10*3/uL 0.36-1.02 EOS x10^3 (test code = 711-2) 0.16 10*3/uL 0.06-0.53 BASO x10^3 (test code = 704-7) 0.10 10*3/uL 0.01-0.09 H Lab Interpretation (test code = 62610-4) [facility] OIWVMCJY9562-16-13 09:00:37Ordering physician: JOSE FRANCISCO WALTERS Indication: Acute [...] abdomen andpelvis demonstrate no osseous destructive lesion. [facility] Nieor5584-44-19 06:29:13* Test Item Value Reference Range Interpretation Comme nts NA (test code = 4176082418) 138 mmol/L 135-145 K (test code = 7403821318) 3.8 mmol/L 3.5-5.0 CL (test code = 8266015061) 106 mmol/L 98-108 CO2 TOTAL (test code = 7919657717) 21 mmol/L 23-31 L AGAP (test code = 6651432054) 11 2-16 BUN (test code = 4905077360) 13 mg/dL 7-23 GLUCOSE (test code = 0231970619) 113 mg/dL 70-110 H CREATININE (test code = 4675625770) 0.63 mg/dL 0.60-1.25 TOTAL BILI (test code = 2538311327) 0.7 mg/dL 0.1-1.1 CALCIUM (test code = 6171527287) 9.6 mg/dL 8.6-10.6 T PROTEIN (test code = 5772307932) 9.0 g/dL 6.3-8.2 H ALBUMIN (test code = 2160261781) 5.0 g/dL 3.5-5.0 ALK PHOS (test code = 3888928580) 73 U/L 34-122 ALTv (test code = 1742-6) 33 U/L 5-50 AST(SGOT) (test code = 9546625850) 33 U/L 13-40 eGFR (test code = 45782-1) 118.8 mL/min/1.73m2 CKD-EPI eGFR (2020). Assuming creatinine has been stable day-to-day for at least three months, the eGFR indicates Category G1 (>= 90 mL/min/1.73 m2) Lab Interpretation (test code = 90326-0) [facility] Ruolk2406-32-76 06:29:13* Test Item Value Reference Range Interpretation Comme nts LIPASE (test code = 0976765389) 89 U/L 0-220 Lab Interpretation (test cod e = 84252-5) Normal [facility] with Orfaynzygeca9714-55-22 06:17:56* Test Item Value Reference Range Interpretation Comme nts WBC (test code = 6690-2) 11.54 See_Comment H [Automated [employer]] The system which generated this result transmitted reference range: 4.20 - 10.70 10*3/?L. The reference range was not used to interpret this result as normal/abnormal. RBC (test code = 789-8) 5.24 See_Comment [Automated [employer] ge] The system which generated this result [...] 33.9 g/dL 31.2-35.0 RDW-SD (test code = 51586-7) 46.6 fL 38.5-51.6 RDW-CV (test code = 788-0) 14.0 % 12.1-15.4 PLT (test code = 777-3) 312 See_Comment [Automated [employer] ge] The system which generated this result transmitted reference range: 150 - 328 10*3/?L. The reference range was not used to interpret this result as normal/abnormal. MPV (test code = 73465-2) 9.7 fL 9.8-13.0 L NRBC/100 WBC (test code = 5409256011) 0.0 See_Comment [Automated [employer] ssage] The system which generated this result transmitted reference range: 0.0 - 10.0 /100 WBCs. The reference range was not used to interpret this result as normal/abnormal. NRBC x10^3 (test code = 0496375240) See_Comment [Automated [employer] ge] The system which generated this result transmitted reference range: 10*3/?L. The reference range was not used to interpret this result as normal/abnormal. GRAN MAT (NEUT) % (test code = 770-8) 54.9 % IMM GRAN % (test code = 4496186385) 0.30 % LYMPH % (test code = 736-9) 36.0 % MONO % (test code = 5905-5) 6.3 % EOS % (test code = 713-8) 1.6 % BASO % (test code = 706-2) 0.9 % GRAN MAT x10^3(ANC) (test code = 6300152919) 6.35 10*3/uL 1.99-6.95 IMM GRAN x10^3 (test code = 6387086878) 0.03 10*3/uL 0.00-0.06 LYMPH x10^3 (test code = 731-0) 4.15 10*3/uL 1.09-3.23 H MONO x10^3 (test code = 742-7) 0.73 10*3/uL 0.36-1.02 EOS x10^3 (test code = 711-2) 0.18 10*3/uL 0.06-0.53 BASO x10^3 (test code = 704-7) 0.10 10*3/uL 0.01-0.09 H Lab Interpretation (test code = 62367-0) Abnormal [facility] acute hospital GLUCOSE (AUTOMATED)2023-11-01 05:42:28* Test Item Value Reference Range Interpretation Comme nts POCT GLU (test code = 8635504379) 110 mg/dL 70-110 Lab Interpretation (test cod e = 67063-2) Normal [facility] ABDOMEN PELVIS W YIGMFCFH2503-78-10 07:44:05Ordering physician: CHAPITO CONTRERAS Indication: Acute right [...] pars defects at L5-S1.[facility] with Zocmsmwnmqnd8721-48-50 06:48:02* Test Item Value Reference Range Interpretation [...] 33.9 g/dL 31.2-35.0 RDW-SD (test code = 63220-2) 45.0 fL 38.5-51.6 RDW-CV (test code = 788-0) 13.6 % 12.1-15.4 PLT (test code = 777-3) 307 See_Comment [Automated messa ge] The system which generated this result transmitted reference range: 150 - 328 10*3/?L. The reference range was not used to interpret this result as normal/abnormal. MPV (test code = 87786-2) 9.3 fL 9.8-13.0 L NRBC/100 WBC (test code = 9039044601) 0.0 See_Comment [Automated me ssage] The system which generated this result transmitted reference range: 0.0 - 10.0 /100 WBCs. The reference range was not used to interpret this result as normal/abnormal. NRBC x10^3 (test code = 5755493400) See_Comment [Automated messa ge] The system which generated this result transmitted reference range: 10*3/?L. The reference range was not used to interpret this result as normal/abnormal. SEG % (test code = 05858-8) 49 % 33-76 LYMPH % (test code = 03191-3) 40 % 14-54 MONO % (test code = 92200-9) 4 % 0-4 EOS % (test code = 16062-0) 7 % 0-3 H ANC (test code = 753-4) 5.81 10*3/uL 1.99-6.95 Lab Interpretation (test code = 59620-8) [facility] Urigy4985-40-72 06:32:13* Test Item Value Reference Range Interpretation Comme nts NA (test code = 7128866112) 140 mmol/L 135-145 K (test code = 5167732230) 3.7 mmol/L 3.5-5.0 CL (test code = 9600146093) 105 mmol/L 98-108 CO2 TOTAL (test code = 9735635893) 23 mmol/L 23-31 AGAP (test code = 0124547923) 12 2-16 BUN (test code = 0034387585) 15 mg/dL 7-23 GLUCOSE (test code = 6003062617) 126 mg/dL 70-110 H CREATININE (test code = 6913961966) 0.89 mg/dL 0.60-1.25 TOTAL BILI (test code = 8893540447) 0.6 mg/dL 0.1-1.1 CALCIUM (test code = 3793025884) 9.5 mg/dL 8.6-10.6 T PROTEIN (test code = 7893113721) 8.6 g/dL 6.3-8.2 H ALBUMIN (test code = 2216501583) 4.7 g/dL 3.5-5.0 ALK PHOS (test code = 9581128266) 84 U/L 34-122 ALTv (test code = 1742-6) 38 U/L 5-50 AST(SGOT) (test code = 6852563763) 33 U/L 13-40 eGFR (test code = 41501-2) 107.0 mL/min/1.73m2 CKD-EPI eGFR (2020). Assuming creatinine has been stable day-to-day for at least three months, the eGFR indicates Category G1 (>= 90 mL/min/1.73 m2) Lab Interpretation (test code = 80079-8) [facility], [id number] 06:31:52* Test Item Value Reference Range Interpretation Comme nts LIPASE (test code = 5685130714) 80 U/L 0-220 Lab Interpretation (test cod e = 99183-0) [facility] (NA, K, CL, CO2, GLUCOSE, BUN, CREATININE, CA)2023-09-26 06:00:26* Test Item Value Reference Range Interpretation Comme nts NA (test code = 9103611049) 139 mmol/L 135-145 K (test code = 0510534086) 3.9 mmol/L 3.5-5.0 CL (test code = 8459366098) 104 mmol/L 98-108 CO2 TOTAL (test code = 5000272669) 25 mmol/L 23-31 AGAP (test code = 7336443494) 10 2-16 BUN (test code = 0258750456) 14 mg/dL 7-23 GLUCOSE (test code = 7897690848) 109 mg/dL 70-110 CREATININE (test code = 2864506325) 0.77 mg/dL 0.60-1.25 CALCIUM (test code = 4746404318) 10.4 mg/dL 8.6-10.6 eGFR (test code = 87501-4) 112.5 mL/min/1.73m2 CKD-EPI eGFR (20 ). Assuming creatinine has been stable day-to-day for at least three months, the eGFR indicates Category G1 (>= 90 mL/min/1.73 m2) [facility]65300[facility] (ALB,T.PRO,BILI T,BU/BC,ALT,AST,ALK PHOS)2023-09-26 06:00:26* Test Item Value Reference Range Interpretation Comme nts TOTAL BILI (test code = 1849694062) 0.6 mg/dL 0.1-1.1 BILI UNCON (test code = 6568063470) 0.4 mg/dL 0.1-1.1 BILI CONJ (test code = 3489175248) 0.0 mg/dL 0.0-0.3 T PROTEIN (test code = 0919687836) 8.6 g/dL 6.3-8.2 H ALBUMIN (test code = 6374286818) 4.7 g/dL 3.5-5.0 ALK PHOS (test code = 7985058569) 91 U/L 34-122 ALTv (test code = 1742-6) 40 U/L 5-50 AST(SGOT) (test code = 2091850195) 27 U/L 13-40 Lab Interpretation (test cod e = 96656-6) Abnormal [facility]25* Test Item Value Reference Range Interpretation Comme nts LIPASE (test code = 1725279353) 73 U/L 0-220 Lab Interpretation (test cod e = 05584-7) Normal [facility] WITH [id number] 05:50:26* Test Item Value Reference Range Interpretation Comme nts WBC (test code = 6690-2) 10.08 See_Comment [Automated [employer]] The system which generated this result transmitted reference range: 4.20 - 10.70 10*3/?L. The reference range was not used to interpret this result as normal/abnormal. RBC (test code = 789-8) 5.24 See_Comment [Automated [employer]] The system which generated this result [...] 33.8 g/dL 31.2-35.0 RDW-SD (test code = 82242-8) 44.0 fL 38.5-51.6 RDW-CV (test code = 788-0) 13.1 % 12.1-15.4 PLT (test code = 777-3) 317 See_Comment [Automated messa ge] The system which generated this result transmitted reference range: 150 - 328 10*3/?L. The reference range was not used to interpret this result as normal/abnormal. MPV (test code = 26456-5) 9.6 fL 9.8-13.0 L NRBC/100 WBC (test code = 3314794359) 0.0 See_Comment [Automated [employer] ssage] The system which generated this result transmitted reference range: 0.0 - 10.0 /100 WBCs. The reference range was not used to interpret this result as normal/abnormal. NRBC x10^3 (test code = 8956603413) See_Comment [Automated messa ge] The system which generated this result transmitted reference range: 10*3/?L. The reference range was not used to interpret this result as normal/abnormal. GRAN MAT (NEUT) % (test code = 770-8) 50.9 % IMM GRAN % (test code = 2189306506) 0.30 % LYMPH % (test code = 736-9) 38.3 % MONO % (test code = 5905-5) 7.5 % EOS % (test code = 713-8) 2.2 % BASO % (test code = 706-2) 0.8 % GRAN MAT x10^3(ANC) (test code = 0351019660) 5.13 10*3/uL 1.99-6.95 IMM GRAN x10^3 (test code = 7137133180) 0.03 10*3/uL 0.00-0.06 LYMPH x10^3 (test code = 731-0) 3.86 10*3/uL 1.09-3.23 H MONO x10^3 (test code = 742-7) 0.76 10*3/uL 0.36-1.02 EOS x10^3 (test code = 711-2) 0.22 10*3/uL 0.06-0.53 BASO x10^3 (test code = 704-7) 0.08 10*3/uL 0.01-0.09 Lab Interpretation (test code = 75986-6) [facility] [id number] 05:30:49* Test Item Value Reference Range Interpretation Comme nts TROPONIN I (test code = 3714248558) 0.001 ng/mL <=0.034 LAURIE (test code = [...] of biotin. Lab Interpretation (test code = 39438-0) Normal [facility]. METABOLIC PANEL (40271)2023-08-24 05:19:05* Test Item Value Reference Range Interpretation Comme nts NA (test code = 5934688015) 138 mmol/L 135-145 K (test code = 4466437356) 4.3 mmol/L 3.5-5.0 CL (test code = 3957340590) 100 mmol/L 98-108 CO2 TOTAL (test code = 2083219846) 25 mmol/L 23-31 AGAP (test code = 0403547415) 13 2-16 BUN (test code = 1935219605) 15 mg/dL 7-23 GLUCOSE (test code = 5834788742) 198 mg/dL 70-110 H CREATININE (test code = 9208090950) 0.86 mg/dL 0.60-1.25 TOTAL BILI (test code = 8485902394) 0.3 mg/dL 0.1-1.1 CALCIUM (test code = 3698927517) 10.3 mg/dL 8.6-10.6 T PROTEIN (test code = 3866289475) 8.6 g/dL 6.3-8.2 H ALBUMIN (test code = 3291534686) 4.5 g/dL 3.5-5.0 ALK PHOS (test code = 7251894038) 94 U/L 34-122 ALTv (test code = 1742-6) 44 U/L 5-50 AST(SGOT) (test code = 2478112349) 28 U/L 13-40 eGFR (test code = 69187-2) 108.8 mL/min/1.73m2 CKD-EPI eGFR (2020). Assuming creatinine has been stable day-to-day for at least three months, the eGFR indicates Category G1 (>= 90 mL/min/1.73 m2) Lab Interpretation (test code = 49135-8) Abnormal [facility] WITH [id number] 05:01:26* Test Item Value Reference Range Interpretation Comme nts WBC (test code = 6690-2) 10.38 See_Comment [Automated [employer]] The system which generated this result transmitted reference range: 4.20 - 10.70 10*3/?L. The reference range was not used to interpret this result as normal/abnormal. RBC (test code = 789-8) 5.08 See_Comment [Automated [employer]] The system which generated this result transmitted [...] 33.5 g/dL 31.2-35.0 RDW-SD (test code = 69960-0) 43.8 fL 38.5-51.6 RDW-CV (test code = 788-0) 13.0 % 12.1-15.4 PLT (test code = 777-3) 298 See_Comment [Automated messa ge] The system which generated this result transmitted reference range: 150 - 328 10*3/?L. The reference range was not used to interpret this result as normal/abnormal. MPV (test code = 57082-2) 10.0 fL 9.8-13.0 NRBC/100 WBC (test code = 3209894823) 0.0 See_Comment [Automated me ssage] The system which generated this result transmitted reference range: 0.0 - 10.0 /100 WBCs. The reference range was not used to interpret this result as normal/abnormal. NRBC x10^3 (test code = 6007779195) See_Comment [Automated messa ge] The system which generated this result transmitted reference range: 10*3/?L. The reference range was not used to interpret this result as normal/abnormal. GRAN MAT (NEUT) % (test code = 770-8) 52.4 % IMM GRAN % (test code = 0270354765) 0.30 % LYMPH % (test code = 736-9) 36.6 % MONO % (test code = 5905-5) 7.2 % EOS % (test code = 713-8) 2.6 % BASO % (test code = 706-2) 0.9 % GRAN MAT x10^3(ANC) (test code = 7310272415) 5.44 10*3/uL 1.99-6.95 IMM GRAN x10^3 (test code = 4425985939) 0.03 10*3/uL 0.00-0.06 LYMPH x10^3 (test code = 731-0) 3.80 10*3/uL 1.09-3.23 H MONO x10^3 (test code = 742-7) 0.75 10*3/uL 0.36-1.02 EOS x10^3 (test code = 711-2) 0.27 10*3/uL 0.06-0.53 BASO x10^3 (test code = 704-7) 0.09 10*3/uL 0.01-0.09 Lab Interpretation (test code = 38265-4) [facility] GLUCOSE (AUTOMATED)2023-05-26 02:18:34* Test Item Value Reference Range Interpretation Comme nts POCT GLU (test code = 7222073550) 173 mg/dL 70-110 H Lab Interpretation (test cod e = 07466-2) Abnormal [facility] hospital GLUCOSE(AGE >30DAYS)2023-05-26 02:17:00* Test Item Value Reference Range Interpretation Comme nts POCT Glu (age>30days) (test code = 3342) 173 mg/dL 70-110 A Lab Interpretation (test cod e = 52228-6) Abnormal [facility] [id number] 01:41:57* Test Item Value Reference Range Interpretation Comme nts TROPONIN I (test code = 3602825788) 0.008 ng/mL <=0.034 LAURIE (test code = [...] of biotin. Lab Interpretation (test code = 71061-2) Normal [facility] GLUCOSE (AUTOMATED)2023-05-26 01:23:43* Test Item Value Reference Range Interpretation Comme nts POCT GLU (test code = 4055032822) 185 mg/dL 70-110 H Lab Interpretation (test cod e = 97258-9) [facility]-[id number] 00:40:36* Test Item Value Reference Range Interpretation Comme nts NT-proBNP (test code = 93909-1) <=125 Lab Interpretation (test cod e = 33808-0) Normal [facility] [id number] 00:06:55* Test Item Value Reference Range Interpretation Comme nts TROPONIN I (test code = 5429346556) 0.003 ng/mL <=0.034 LAURIE (test code = [...] of biotin. Lab Interpretation (test code = 90835-3) [facility] 23:56:12* Test Item Value Reference Range Interpretation Comme nts MAGNESIUM (test code = 0135988731) 2.0 mg/dL 1.7-2.4 Lab Interpretation (test cod e = 78962-8) [facility]OL[facility] (20827)2023-05-25 23:55:52* Test Item Value Reference Range Interpretation Comme nts NA (test code = 5538708235) 138 mmol/L 135-145 K (test code = 2632886734) 4.3 mmol/L 3.5-5.0 CL (test code = 0017649947) 103 mmol/L 98-108 CO2 TOTAL (test code = 5489681770) 22 mmol/L 23-31 L AGAP (test code = 8227443469) 13 2-16 BUN (test code = 4145200854) 22 mg/dL 7-23 GLUCOSE (test code = 1537126500) 274 mg/dL 70-110 H CREATININE (test code = 8575005790) 0.79 mg/dL 0.60-1.25 TOTAL BILI (test code = 6810165203) 0.6 mg/dL 0.1-1.1 CALCIUM (test code = 5059666449) 9.2 mg/dL 8.6-10.6 T PROTEIN (test code = 2940546304) 8.4 g/dL 6.3-8.2 H ALBUMIN (test code = 6347838969) 4.5 g/dL 3.5-5.0 ALK PHOS (test code = 7193514226) 88 U/L 34-122 ALTv (test code = 1742-6) 48 U/L 5-50 AST(SGOT) (test code = 7297110311) 37 U/L 13-40 eGFR (test code = 8505443547) 106.1 mL/min/1.73m2 LAURIE (test code = LAURIE) [...] imaging tests). Lab Interpretation (test code = 67936-0) [facility] 23:55:32* Test Item Value Reference Range Interpretation Comme nts LIPASE (test code = 6679315909) 154 U/L 0-220 Lab Interpretation (test cod e = 41610-3) [facility] WITH [id number] 23:33:34* Test Item Value Reference Range Interpretation Comme nts WBC (test code = 6690-2) 9.32 See_Comment [Automated [employer]] The system which generated this result transmitted reference range: 4.20 - 10.70 10*3/?L. The reference range was not used to interpret this result as normal/abnormal. RBC (test code = 789-8) 4.89 See_Comment [Automated [employer]] The system which generated this result [...] 33.7 g/dL 31.2-35.0 RDW-SD (test code = 65873-6) 45.4 fL 38.5-51.6 RDW-CV (test code = 788-0) 13.4 % 12.1-15.4 PLT (test code = 777-3) 286 See_Comment [Automated [employer]] The system which generated this result transmitted reference range: 150 - 328 10*3/?L. The reference range was not used to interpret this result as normal/abnormal. MPV (test code = 09754-1) 10.2 fL 9.8-13.0 NRBC/100 WBC (test code = 2333094716) 0.0 See_Comment [Automated [employer] ssage] The system which generated this result transmitted reference range: 0.0 - 10.0 /100 WBCs. The reference range was not used to interpret this result as normal/abnormal. NRBC x10^3 (test code = 0971008105) See_Comment [Automated [employer] ssage] The system which generated this result transmitted reference range: 10*3/?L. The reference range was not used to interpret this result as normal/abnormal. GRAN MAT (NEUT) % (test code = 770-8) 57.3 % IMM GRAN % (test code = 7801113310) 0.40 % LYMPH % (test code = 736-9) 32.6 % MONO % (test code = 5905-5) 6.8 % EOS % (test code = 713-8) 1.9 % BASO % (test code = 706-2) 1.0 % GRAN MAT x10^3(ANC) (test code = 1217905140) 5.34 10*3/uL 1.99-6.95 IMM GRAN x10^3 (test code = 0989564429) 0.04 10*3/uL 0.00-0.06 LYMPH x10^3 (test code = 731-0) 3.04 10*3/uL 1.09-3.23 MONO x10^3 (test code = 742-7) 0.63 10*3/uL 0.36-1.02 EOS x10^3 (test code = 711-2) 0.18 10*3/uL 0.06-0.53 BASO x10^3 (test code = 704-7) 0.09 10*3/uL 0.01-0.09 [facility] with [id number] 07:42:13* Test Item Value Reference Range Interpretation Comme nts WBC (test code = 6690-2) 10.82 See_Comment H [Automated [employer]] The system which generated this result transmitted reference range: 4.20 - 10.70 10*3/?L. The reference range was not used to interpret this result as normal/abnormal. RBC (test code = 789-8) 4.96 See_Comment [Automated [employer]] The system which generated this result [...] 33.3 g/dL 31.2-35.0 RDW-SD (test code = 63316-4) 44.4 fL 38.5-51.6 RDW-CV (test code = 788-0) 13.6 % 12.1-15.4 PLT (test code = 777-3) 187 See_Comment [Automated messa ge] The system which generated this result transmitted reference range: 150 - 328 10*3/?L. The reference range was not used to interpret this result as normal/abnormal. MPV (test code = 59656-5) 10.4 fL 9.8-13.0 NRBC/100 WBC (test code = 6092981225) 0.0 See_Comment [Automated me ssage] The system which generated this result transmitted reference range: 0.0 - 10.0 /100 WBCs. The reference range was not used to interpret this result as normal/abnormal. NRBC x10^3 (test code = 9664958905) See_Comment [Automated messa ge] The system which generated this result transmitted reference range: 10*3/?L. The reference range was not used to interpret this result as normal/abnormal. GRAN MAT (NEUT) % (test code = 770-8) 55.0 % IMM GRAN % (test code = 3145330236) 0.50 % LYMPH % (test code = 736-9) 34.8 % MONO % (test code = 5905-5) 6.5 % EOS % (test code = 713-8) 2.5 % BASO % (test code = 706-2) 0.7 % GRAN MAT x10^3(ANC) (test code = 4857507357) 5.95 10*3/uL 1.99-6.95 IMM GRAN x10^3 (test code = 1331545827) 0.05 10*3/uL 0.00-0.06 LYMPH x10^3 (test code = 731-0) 3.77 10*3/uL 1.09-3.23 H MONO x10^3 (test code = 742-7) 0.70 10*3/uL 0.36-1.02 EOS x10^3 (test code = 711-2) 0.27 10*3/uL 0.06-0.53 BASO x10^3 (test code = 704-7) 0.08 10*3/uL 0.01-0.09 Lab Interpretation (test code = 05286-3) [facility] Met[facility] [id number] 07:32:47* Test Item Value Reference Range Interpretation Comme nts NA (test code = 1921726641) 136 mmol/L 135-145 K (test code = 1028036293) 4.2 mmol/L 3.5-5.0 CL (test code = 4255849027) 104 mmol/L 98-108 CO2 TOTAL (test code = 3797486056) 21 mmol/L 23-31 L AGAP (test code = 9408984657) 11 2-16 BUN (test code = 2906642519) 17 mg/dL 7-23 GLUCOSE (test code = 4679044201) 125 mg/dL 70-110 H CREATININE (test code = 4774768874) 0.63 mg/dL 0.60-1.25 TOTAL BILI (test code = 0270528333) 0.3 mg/dL 0.1-1.1 CALCIUM (test code = 9768862008) 9.3 mg/dL 8.6-10.6 T PROTEIN (test code = 7257915813) 7.8 g/dL 6.3-8.2 ALBUMIN (test code = 6879732770) 4.5 g/dL 3.5-5.0 ALK PHOS (test code = 0993870393) 97 U/L 34-122 ALTv (test code = 1742-6) 42 U/L 5-50 AST(SGOT) (test code = 3713738990) 34 U/L 13-40 eGFR (test code = 1866881489) 137.7 mL/min/1.73m2 LAURIE (test code = LAURIE) [...] imaging tests). Lab Interpretation (test code = 67729-4) [facility], [id number] 07:31:52* Test Item Value Reference Range Interpretation Comme nts LIPASE (test code = 8139120854) 73 U/L 0-220 Lab Interpretation (test cod e = 29609-8) [facility]THY[facility] ST[facility]ULATING [id number] 18:17:21 * Test Item Value Reference Range Interpretation Comme nts TSH (test code = 3328390937) See_Comment H [Automated [employer]] The system which generated this result transmitted reference range: 0.45 - 4.70 mIU/L. The reference range was not used to interpret this result as normal/abnormal. Lab Interpretation (test code = 42819-3) Abnormal [facility] [id number] 16:53:41* Test Item Value Reference Range Interpretation Comme nts FREE T4 (test code = 6476166556) See_Comment L [Automated [employer]] The system which generated this result transmitted reference range: 0.78 - 2.20 ng/dL:. The reference range was not used to interpret this result as normal/abnormal. Lab Interpretation (test code = 95976-0) Abnormal [facility] [id number] 16:53:04* Test Item Value Reference Range Interpretation Comme nts FREE T3 (test code = 9437660210) 1.50 pg/mL 2.77-5.27 L Lab Interpretation (test cod e = 90472-9) [facility]OLIC [facility]EL (37104)2022-05-28 16:37:03* Test Item Value Reference Range Interpretation Comme nts NA (test code = 8890498339) 138 mmol/L 135-145 K (test code = 3543367085) 4.4 mmol/L 3.5-5 CL (test code = 6477369977) 101 mmol/L 98-108 CO2 TOTAL (test code = 6115385408) 27 mmol/L 23-31 AGAP (test code = 8927390323) 2-16 BUN (test code = 4561745962) 14 mg/dL 7-23 GLUCOSE (test code = 8299059323) 102 mg/dL 70-110 CREATININE (test code = 7956690446) 0.82 mg/dL 0.6-1.25 TOTAL BILI (test code = 3696216075) 0.5 mg/dL 0.1-1.1 CALCIUM (test code = 4298394157) 9.3 mg/dL 8.6-10.6 T PROTEIN (test code = 6087360610) 8.3 g/dL 6.3-8.2 H ALBUMIN (test code = 2012930260) 4.8 g/dL 3.5-5 ALK PHOS (test code = 3570753643) 75 U/L 34-122 ALTv (test code = 1742-6) 56 U/L 5-50 H AST(SGOT) (test code = 9830137691) 42 U/L 13-40 H eGFR (test code = 2908327464) mL/min/1.73m2 LAURIE (test code = LAURIE) Association [...] imaging tests). Lab Interpretation (test code = 09607-2) Abnormal [facility] WITH [id number] 16:25:38* Test Item Value Reference Range Interpretation Comme nts WBC (test code = 6690-2) See_Comment [Automated [employer]] The system which generated this result transmitted reference range: 4.20 - 10.70 10*3/?L. The reference range was not used to interpret this result as normal/abnormal. RBC (test code = 789-8) See_Comment [[employer]] The system which generated this result transmitted [...] 33.0 g/dL 31.2-35 RDW-SD (test code = 72354-0) 48.1 fL 38.5-51.6 RDW-CV (test code = 788-0) 14.2 % 12.1-15.4 PLT (test code = 777-3) See_Comment [Automated messa ge] The system which generated this result transmitted reference range: 150 - 328 10*3/?L. The reference range was not used to interpret this result as normal/abnormal. MPV (test code = 26920-1) 9.5 fL 9.8-13 L NRBC/100 WBC (test code = 3388061814) See_Comment [Automated [employer] ssage] The system which generated this result transmitted reference range: 0.0 - 10.0 /100 WBCs. The reference range was not used to interpret this result as normal/abnormal. NRBC x10^3 (test code = 9897657321) See_Comment [Automated messa ge] The system which generated this result transmitted reference range: 10*3/?L. The reference range was not used to interpret this result as normal/abnormal. GRAN MAT (NEUT) % (test code = 770-8) 56.3 % IMM GRAN % (test code = 1889454785) 0.70 % LYMPH % (test code = 736-9) 32.8 % MONO % (test code = 5905-5) 6.2 % EOS % (test code = 713-8) 2.7 % BASO % (test code = 706-2) 1.3 % GRAN MAT x10^3(ANC) (test code = 4121539706) 4.87 10*3/uL 1.99-6.95 IMM GRAN x10^3 (test code = 0833030018) 0.06 10*3/uL 0-0.06 LYMPH x10^3 (test code = 731-0) 2.84 10*3/uL 1.09-3.23 MONO x10^3 (test code = 742-7) 0.54 10*3/uL 0.36-1.02 EOS x10^3 (test code = 711-2) 0.23 10*3/uL 0.06-0.53 BASO x10^3 (test code = 704-7) 0.11 10*3/uL 0.01-0.09 H Lab Interpretation (test code = 74097-7) [facility] Test Item Value Reference Range Interpretation Comme nts MAGNESIUM (test code = 6668704900) 1.8 mg/dL 1.7-2.4 Lab Interpretation (test cod e = 76353-1) [facility] [id number] 06:00:52* Test Item Value Reference Range Interpretation Comments TROPONIN I (test code = 3450528182) 0.002 ng/mL See_Comment [Automated message] The system [...] of biotin. Lab Interpretation (test code = 93761-0) [facility] (39463)2022-05-06 05:49:11* Test Item Value Reference Range Interpretation Comme nts NA (test code = 9634735634) 136 mmol/L 135-145 K (test code = 2611415071) 4.4 mmol/L 3.5-5 CL (test code = 4582895758) 100 mmol/L 98-108 CO2 TOTAL (test code = 3458836684) 23 mmol/L 23-31 AGAP (test code = 2546157353) 2-16 BUN (test code = 9449811083) 16 mg/dL 7-23 GLUCOSE (test code = 6300928252) 116 mg/dL 70-110 H CREATININE (test code = 1872837051) 0.81 mg/dL 0.6-1.25 TOTAL BILI (test code = 4113502460) 0.6 mg/dL 0.1-1.1 CALCIUM (test code = 0244598500) 10.3 mg/dL 8.6-10.6 T PROTEIN (test code = 8455823643) 9.2 g/dL 6.3-8.2 H ALBUMIN (test code = 2049796118) 5.3 g/dL 3.5-5 H ALK PHOS (test code = 1896157766) 89 U/L 34-122 ALTv (test code = 1742-6) 44 U/L 5-50 AST(SGOT) (test code = 2434079965) 36 U/L 13-40 eGFR (test code = 1883601333) mL/min/1.73m2 LAURIE (test code = LAURIE) Association [...] imaging tests). Lab Interpretation (test code = 96088-9) [facility] 05:48:51* Test Item Value Reference Range Interpretation Comme nts LIPASE (test code = 3133598535) 67 U/L 0-220 Lab Interpretation (test cod e = 94498-1) Normal [facility] WITH [id number] 05:36:33* Test Item Value Reference Range Interpretation [...] 34.1 g/dL 31.2-35 RDW-SD (test code = 62547-8) 45.9 fL 38.5-51.6 RDW-CV (test code = 788-0) 13.9 % 12.1-15.4 PLT (test code = 777-3) See_Comment [Automated messa ge] The system which generated this result transmitted reference range: 150 - 328 10*3/?L. The reference range was not used to interpret this result as normal/abnormal. MPV (test code = 06338-2) 9.5 fL 9.8-13 L NRBC/100 WBC (test code = 7484708641) See_Comment [Automated me ssage] The system which generated this result transmitted reference range: 0.0 - 10.0 /100 WBCs. The reference range was not used to interpret this result as normal/abnormal. NRBC x10^3 (test code = 0414262481) See_Comment [Automated messa ge] The system which generated this result transmitted reference range: 10*3/?L. The reference range was not used to interpret this result as normal/abnormal. GRAN MAT (NEUT) % (test code = 770-8) 60.3 % IMM GRAN % (test code = 6660359096) 0.80 % LYMPH % (test code = 736-9) 27.6 % MONO % (test code = 5905-5) 6.8 % EOS % (test code = 713-8) 3.5 % BASO % (test code = 706-2) 1.0 % GRAN MAT x10^3(ANC) (test code = 8470333503) 6.95 10*3/uL 1.99-6.95 IMM GRAN x10^3 (test code = 0800626841) 0.09 10*3/uL 0-0.06 H LYMPH x10^3 (test code = 731-0) 3.19 10*3/uL 1.09-3.23 MONO x10^3 (test code = 742-7) 0.79 10*3/uL 0.36-1.02 EOS x10^3 (test code = 711-2) 0.40 10*3/uL 0.06-0.53 BASO x10^3 (test code = 704-7) 0.12 10*3/uL 0.01-0.09 H Lab Interpretation (test code = 24314-8) Abnormal [facility]. METABOLIC PANEL (71591)2022-05-01 13:28:01* Test Item Value Reference Range Interpretation Comme nts NA (test code = 4102422144) 139 mmol/L 135-145 K (test code = 3313899313) 4.7 mmol/L 3.5-5 CL (test code = 3673037493) 104 mmol/L 98-108 CO2 TOTAL (test code = 7284507199) 23 mmol/L 23-31 AGAP (test code = 0294945229) 2-16 BUN (test code = 8252541550) 14 mg/dL 7-23 GLUCOSE (test code = 8346705759) 128 mg/dL 70-110 H CREATININE (test code = 4833930551) 0.62 mg/dL 0.6-1.25 TOTAL BILI (test code = 3413858421) 0.4 mg/dL 0.1-1.1 CALCIUM (test code = 7543698618) 9.2 mg/dL 8.6-10.6 T PROTEIN (test code = 9810645772) 8.1 g/dL 6.3-8.2 ALBUMIN (test code = 3444744201) 4.6 g/dL 3.5-5 ALK PHOS (test code = 6332289214) 92 U/L 34-122 ALTv (test code = 1742-6) 43 U/L 5-50 AST(SGOT) (test code = 4284497550) 30 U/L 13-40 eGFR (test code = 4245446157) mL/min/1.73m2 LAURIE (test code = LAURIE) Association [...] imaging tests). Lab Interpretation (test code = 39277-7) Abnormal [facility] WITH [id number] 13:20:02* Test Item Value Reference Range Interpretation [...] 32.8 g/dL 31.2-35 RDW-SD (test code = 54935-9) 47.5 fL 38.5-51.6 RDW-CV (test code = 788-0) 14.1 % 12.1-15.4 PLT (test code = 777-3) See_Comment [Automated messa ge] The system which generated this result transmitted reference range: 150 - 328 10*3/?L. The reference range was not used to interpret this result as normal/abnormal. MPV (test code = 00422-8) 9.3 fL 9.8-13 L NRBC/100 WBC (test code = 7220863484) See_Comment [Automated [employer] ssage] The system which generated this result transmitted reference range: 0.0 - 10.0 /100 WBCs. The reference range was not used to interpret this result as normal/abnormal. NRBC x10^3 (test code = 3400967394) See_Comment [Automated messa ge] The system which generated this result transmitted reference range: 10*3/?L. The reference range was not used to interpret this result as normal/abnormal. GRAN MAT (NEUT) % (test code = 770-8) 58.9 % IMM GRAN % (test code = 2796257663) 0.60 % LYMPH % (test code = 736-9) 29.2 % MONO % (test code = 5905-5) 6.8 % EOS % (test code = 713-8) 3.5 % BASO % (test code = 706-2) 1.0 % GRAN MAT x10^3(ANC) (test code = 6588852162) 5.80 10*3/uL 1.99-6.95 IMM GRAN x10^3 (test code = 7410328864) 0.06 10*3/uL 0-0.06 LYMPH x10^3 (test code = 731-0) 2.87 10*3/uL 1.09-3.23 MONO x10^3 (test code = 742-7) 0.67 10*3/uL 0.36-1.02 EOS x10^3 (test code = 711-2) 0.34 10*3/uL 0.06-0.53 BASO x10^3 (test code = 704-7) 0.10 10*3/uL 0.01-0.09 H Lab Interpretation (test code = 94806-8) [id number]:38* Test Item Value Reference Range Interpretation Comments TROPONIN I (test code = 1150536476) 0.002 ng/mL See_Comment [Automated message] The system [...] of biotin. Lab Interpretation (test code = 25966-3) [id number] 07:00:14* Test Item Value Reference Range Interpretation Comme nts NT-proBNP (test code = 1889532002) 25 pg/mL See_Comment [Automated message] The system which generated this result transmitted reference range: <=125. The reference range was not used to interpret this result as normal/abnormal. LAURIE (test code = LAURIE) Biotin has been reported to cause a negative bias, interpret results relative to patient's use of biotin. Lab Interpretation (test code = 82446-7) [facility]* Test Item Value Reference Range Interpretation Comme nts ALCOHOL (test code = 5675579515) <10 mg/dL LAURIE (test code = LAURIE) <10 [id number] Toxic>100 Depression of [employer]>400 [facility]ities [facility] 06:50:57* Test Item Value Reference Range Interpretation Comme nts LIPASE (test code = 1472790896) 65 U/L 0-220 Lab Interpretation (test cod e = 53236-4) [facility] (14477)2022-02-08 06:50:57* Test Item Value Reference Range Interpretation Comme nts NA (test code = 6435165191) 138 mmol/L 135-145 K (test code = 0584227448) 4.3 mmol/L 3.5-5.0 CL (test code = 8474266407) 103 mmol/L 98-108 CO2 TOTAL (test code = 4418273907) 23 mmol/L 23-31 AGAP (test code = 8672345681) 2-16 BUN (test code = 4269320220) 14 mg/dL 7-23 GLUCOSE (test code = 7062297895) 142 mg/dL 70-110 H CREATININE (test code = 6688250295) 0.60 mg/dL 0.60-1.25 TOTAL BILI (test code = 9347546045) 0.5 mg/dL 0.1-1.1 CALCIUM (test code = 2603198910) 9.1 mg/dL 8.6-10.6 T PROTEIN (test code = 9979303695) 7.9 g/dL 6.3-8.2 ALBUMIN (test code = 7532883985) 4.5 g/dL 3.5-5.0 ALK PHOS (test code = 8502604354) 81 U/L 34-122 ALTv (test code = 1742-6) 28 U/L 5-50 AST(SGOT) (test code = 9265702667) 24 U/L 13-40 eGFR (test code = 5462387563) mL/min/1.73m2 LAURIE (test code = LAURIE) Association [...] imaging tests). Lab Interpretation (test code = 10326-1) [facility] THRM[facility]AS [id number] 06:47:31* Test Item Value Reference Range Interpretation Comme nts APTT Patient (test code = 3173-2) See_Comment [Automated message] The system which generated this result transmitted reference range: 23 - 38 Seconds. The reference range was not used to interpret this result as normal/abnormal. LAURIE (test code = LAURIE) The [facility] patient population mean normal value for aPTT is 30 seconds. Lab Interpretation (test code = 66054-0) [facility]PROT[facility] / [id number] 06:45:33* Test Item Value Reference Range Interpretation [...] the indications. Lab Interpretation (test code = 99228-5) [facility] WITH [id number] 06:37:36* Test Item Value Reference Range Interpretation [...] 33.4 g/dL 31.2-35.0 RDW-SD (test code = 82789-7) 42.7 fL 38.5-51.6 RDW-CV (test code = 788-0) 13.1 % 12.1-15.4 PLT (test code = 777-3) See_Comment [Automated messa ge] The system which generated this result transmitted reference range: 150 - 328 10*3/?L. The reference range was not used to interpret this result as normal/abnormal. MPV (test code = 67799-8) 9.7 fL 9.8-13.0 L NRBC/100 WBC (test code = 3348010229) See_Comment [Automated me ssage] The system which generated this result transmitted reference range: 0.0 - 10.0 /100 WBCs. The reference range was not used to interpret this result as normal/abnormal. NRBC x10^3 (test code = 8627725546) <0.01 See_Comment [Automated messa ge] The system which generated this result transmitted reference range: 10*3/?L. The reference range was not used to interpret this result as normal/abnormal. GRAN MAT (NEUT) % (test code = 770-8) 54.9 % IMM GRAN % (test code = 7705654747) 0.70 % LYMPH % (test code = 736-9) 32.9 % MONO % (test code = 5905-5) 8.7 % EOS % (test code = 713-8) 2.0 % BASO % (test code = 706-2) 0.8 % GRAN MAT x10^3(ANC) (test code = 3758424875) 5.84 10*3/uL 1.99-6.95 IMM GRAN x10^3 (test code = 7702223704) 0.07 10*3/uL 0.00-0.06 H LYMPH x10^3 (test code = 731-0) 3.50 10*3/uL 1.09-3.23 H MONO x10^3 (test code = 742-7) 0.92 10*3/uL 0.36-1.02 EOS x10^3 (test code = 711-2) 0.21 10*3/uL 0.06-0.53 BASO x10^3 (test code = 704-7) 0.09 10*3/uL 0.01-0.09 Lab Interpretation (test code = 70701-9) [facility] [id number] 01:09:15* Test Item Value Reference Range Interpretation Comments TROPONIN I (test code = 3767608856) 0.003 ng/mL See_Comment [Automated message] The system [...] of biotin. Lab Interpretation (test code = 78568-4) Normal [facility]. METABOLIC PANEL ([id number])2021-10-15 00:56:56* Test Item Value Reference Range Interpretation Comme nts NA (test code = 6909905695) 135 mmol/L 135-145 K (test code = 1762842337) 4.6 mmol/L 3.5-5.0 CL (test code = 9746780461) 101 mmol/L 98-108 CO2 TOTAL (test code = 2121584662) 25 mmol/L 23-31 AGAP (test code = 5462704616) 2-16 BUN (test code = 8104728049) 20 mg/dL 7-23 GLUCOSE (test code = 9258166264) 130 mg/dL 70-110 H CREATININE (test code = 0601351184) 0.92 mg/dL 0.60-1.25 TOTAL BILI (test code = 9293575551) 0.4 mg/dL 0.1-1.1 CALCIUM (test code = 1944507825) 10.0 mg/dL 8.6-10.6 T PROTEIN (test code = 1505546619) 8.5 g/dL 6.3-8.2 H ALBUMIN (test code = 6623258268) 4.8 g/dL 3.5-5.0 ALK PHOS (test code = 6798930751) 89 U/L 34-122 ALTv (test code = 1742-6) 59 U/L 5-50 H AST(SGOT) (test code = 8656112389) 38 U/L 13-40 eGFR (test code = 2166193012) mL/min/1.73m2 LAURIE (test code = LAURIE) Association [...] imaging tests). Lab Interpretation (test code = 68786-3) [facility] 00:56:36* Test Item Value Reference Range Interpretation Comme nts LIPASE (test code = 1762951310) 77 U/L 0-220 Lab Interpretation (test cod e = 85580-3) [facility] WITH [id number] 00:37:36* Test Item Value Reference Range Interpretation Comme nts WBC (test code = 6690-2) See_Comment [Automated [employer]] The system which generated this result transmitted reference range: 4.20 - 10.70 10*3/?L. The reference range was not used to interpret this result as normal/abnormal. RBC (test code = 789-8) See_Comment [Automated [employer]] The system which generated this result [...] 33.6 g/dL 31.2-35.0 RDW-SD (test code = 23595-4) 44.2 fL 38.5-51.6 RDW-CV (test code = 788-0) 13.3 % 12.1-15.4 PLT (test code = 777-3) See_Comment [Automated [employer]] The system which generated this result transmitted reference range: 150 - 328 10*3/?L. The reference range was not used to interpret this result as normal/abnormal. MPV (test code = 18961-7) 9.5 fL 9.8-13.0 L NRBC/100 WBC (test code = 0264615737) See_Comment [Automated [employer] ssage] The system which generated this result transmitted reference range: 0.0 - 10.0 /100 WBCs. The reference range was not used to interpret this result as normal/abnormal. NRBC x10^3 (test code = 1477713564) <0.01 See_Comment [Automated [employer]] The system which generated this result transmitted reference range: 10*3/?L. The reference range was not used to interpret this result as normal/abnormal. GRAN MAT (NEUT) % (test code = 770-8) 55.3 % IMM GRAN % (test code = 0664292191) 0.60 % LYMPH % (test code = 736-9) 32.5 % MONO % (test code = 5905-5) 7.8 % EOS % (test code = 713-8) 2.7 % BASO % (test code = 706-2) 1.1 % GRAN MAT x10^3(ANC) (test code = 8837188937) 5.74 10*3/uL 1.99-6.95 IMM GRAN x10^3 (test code = 7745936085) 0.06 10*3/uL 0.00-0.06 LYMPH x10^3 (test code = 731-0) 3.37 10*3/uL 1.09-3.23 H MONO x10^3 (test code = 742-7) 0.81 10*3/uL 0.36-1.02 EOS x10^3 (test code = 711-2) 0.28 10*3/uL 0.06-0.53 BASO x10^3 (test code = 704-7) 0.11 10*3/uL 0.01-0.09 H Lab Interpretation (test code = 37629-6) [facility] NOW RAPID TESTING)2021-03-15 04:10:11* Test Item Value Reference Range Interpretation Comme nts SARS-CoV-2 Rapid ID NOW (test code = 30918-9) Not Detected Not Detected LAURIE (test code = LAURIE) ID NOW COVID-19 As say is an isothermal nucleic acid amplification test intended for the qualitative detection of nucleic acid from SARS-CoV-2 viral RNA in nasopharyngeal (BARGE PILOT) specimens. It is used under Emergency Use [...] clinically indicated. Lab Interpretation (test code = 34587-8) Normal [facility]. METABOLIC PANEL (59981)2021-03-15 03:35:30* Test Item Value Reference Range Interpretation Comme nts NA (test code = 8608834854) 139 mmol/L 135-145 K (test code = 2401249188) 3.2 mmol/L 3.5-5.0 L CL (test code = 8728487101) 109 mmol/L 98-108 H CO2 TOTAL (test code = 3442237360) 23 mmol/L 23-31 AGAP (test code = 4307691413) 2-16 BUN (test code = 7190221884) 19 mg/dL 7-23 GLUCOSE (test code = 4172046583) 150 mg/dL 70-110 H CREATININE (test code = 8817845989) 0.81 mg/dL 0.60-1.25 TOTAL BILI (test code = 6172527987) 0.3 mg/dL 0.1-1.1 CALCIUM (test code = 0767934702) 8.2 mg/dL 8.6-10.6 L T PROTEIN (test code = 9477641105) 6.9 g/dL 6.3-8.2 ALBUMIN (test code = 9286854320) 4.0 g/dL 3.5-5.0 ALK PHOS (test code = 8564619012) 77 U/L 34-122 ALTv (test code = 1742-6) 22 U/L 5-50 AST(SGOT) (test code = 3285159944) 26 U/L 13-40 eGFR (test code = 4844806498) mL/min/1.73m2 LAURIE (test code = LAURIE) Association [...] imaging tests). Lab Interpretation (test code = 35375-1) [facility] 03:35:00* Test Item Value Reference Range Interpretation Comme nts APPEARANCE (test code = 1793794982) Clear Clear COLOR (test code = 7355724411) Yellow Yellow PH (test code = 3204554360) 4.8-8.0 SP GRAVITY (test code = 8289136550) 1.003-1.030 GLU U QUAL (test code = 3459158122) Normal Normal BLOOD (test code = 3357231418) Negative Negative KETONES (test code = 5834163552) 5 mg/dL Negative A PROTEIN (test code = 2887-8) Negative Negative UROBILIN (test code = 3084408232) Normal Normal BILIRUBIN (test code = 3922283572) Negative Negative NITRITE (test code = 9162235570) Negative Negative LEUK KENNY (test code = 0330506871) Negative Negative RBC/HPF (test code = 1838575913) <1 See_Comment [Automated [employer]] The system which generated this result transmitted reference range: 0 - 3 HPF. The reference range was not used to interpret this result as normal/abnormal. WBC/HPF (test code = 4832911439) <1 See_Comment [Automated [employer]] The system which generated this result transmitted reference range: 0 - 5 HPF. The reference range was not used to interpret this result as normal/abnormal. BACTERIA (test code = 4849685844) Negative Negative MUCOUS (test code = 8151535851) Slight Negative LPF A SQ EPITH (test code = 3408405241) <1 HPF Lab Interpretation (test code = 59433-1) [facility] [id number] 03:22:25* Test Item Value Reference Range Interpretation [...] 33.3 g/dL 31.2-35.0 RDW-SD (test code = 51335-7) 45.8 fL 38.5-51.6 RDW-CV (test code = 788-0) 13.7 % 12.1-15.4 PLT (test code = 777-3) See_Comment H [Automated messa ge] The system which generated this result transmitted reference range: 150 - 328 10*3/?L. The reference range was not used to interpret this result as normal/abnormal. MPV (test code = 68173-2) 9.4 fL 9.8-13.0 L NRBC/100 WBC (test code = 2972619789) See_Comment [Automated [employer] ssage] The system which generated this result transmitted reference range: 0.0 - 10.0 /100 WBCs. The reference range was not used to interpret this result as normal/abnormal. NRBC x10^3 (test code = 2648226009) <0.01 See_Comment [Automated messa ge] The system which generated this result transmitted reference range: 10*3/?L. The reference range was not used to interpret this result as normal/abnormal. GRAN MAT (NEUT) % (test code = 770-8) 58.4 % IMM GRAN % (test code = 1445270785) 0.50 % LYMPH % (test code = 736-9) 30.5 % MONO % (test code = 5905-5) 7.5 % EOS % (test code = 713-8) 2.2 % BASO % (test code = 706-2) 0.9 % GRAN MAT x10^3(ANC) (test code = 8886195553) 5.75 10*3/uL 1.99-6.95 IMM GRAN x10^3 (test code = 3140331433) 0.05 10*3/uL 0.00-0.06 LYMPH x10^3 (test code = 731-0) 3.00 10*3/uL 1.09-3.23 MONO x10^3 (test code = 742-7) 0.74 10*3/uL 0.36-1.02 EOS x10^3 (test code = 711-2) 0.22 10*3/uL 0.06-0.53 BASO x10^3 (test code = 704-7) 0.09 10*3/uL 0.01-0.09 Lab Interpretation (test code = 59920-8) [facility] (39059)2020-09-08 23:50:00* Test Item Value Reference Range Interpretation Comme nts NA (test code = 7080287754) 139 mmol/L 135-145 K (test code = 7863483706) 4.1 mmol/L 3.5-5 CL (test code = 0574886963) 107 mmol/L 98-108 CO2 TOTAL (test code = 6265340856) 22 mmol/L 23-31 L AGAP (test code = 4231033110) 2-16 BUN (test code = 6835182396) 12 mg/dL 7-23 GLUCOSE (test code = 1868235164) 115 mg/dL 70-110 H CREATININE (test code = 9146938982) 0.54 mg/dL 0.6-1.25 L TOTAL BILI (test code = 9479040406) 0.3 mg/dL 0.1-1.1 CALCIUM (test code = 8950140625) 9.3 mg/dL 8.6-10.6 T PROTEIN (test code = 5230967564) 7.6 g/dL 6.3-8.2 ALBUMIN (test code = 8809816586) 4.3 g/dL 3.5-5 ALK PHOS (test code = 0694217821) 80 U/L 34-122 ALTv (test code = 1742-6) 21 U/L 5-50 AST(SGOT) (test code = 6678184611) 21 U/L 13-40 eGFR Calculation (Non-) (test code = 7075116121) mL/min/1.73m2 eGFR Calculation () (test code = 9877792788) mL/min/1.73m2 LAURIE (test code = LAURIE) Association [...] imaging tests). Lab Interpretation (test code = 63251-0) [facility] 23:50:00* Test Item Value Reference Range Interpretation Comme nts LIPASE (test code = 2359860570) 68 U/L 0-220 Lab Interpretation (test cod e = 44441-4) Normal [facility] WITH [id number] 23:22:00* Test Item Value Reference Range Interpretation [...] 34.1 g/dL 31.2-35 RDW-SD (test code = 10554-5) 40.8 fL 38.5-51.6 RDW-CV (test code = 788-0) 12.5 % 12.1-15.4 PLT (test code = 777-3) See_Comment [Automated messa ge] The system which generated this result transmitted reference range: 150 - 328 10*3/?L. The reference range was not used to interpret this result as normal/abnormal. MPV (test code = 75493-1) 9.1 fL 9.8-13 L NRBC/100 WBC (test code = 4973963435) See_Comment [Automated [employer] ssage] The system which generated this result transmitted reference range: 0.0 - 10.0 /100 WBCs. The reference range was not used to interpret this result as normal/abnormal. NRBC x10^3 (test code = 5207014340) <0.01 See_Comment [Automated messa ge] The system which generated this result transmitted reference range: 10*3/?L. The reference range was not used to interpret this result as normal/abnormal. GRAN MAT (NEUT) % (test code = 770-8) 59.0 % IMM GRAN % (test code = 8783024200) 0.60 % LYMPH % (test code = 736-9) 31.3 % MONO % (test code = 5905-5) 6.6 % EOS % (test code = 713-8) 1.9 % BASO % (test code = 706-2) 0.6 % GRAN MAT x10^3(ANC) (test code = 1804954872) 5.85 10*3/uL 1.99-6.95 IMM GRAN x10^3 (test code = 3546958181) 0.06 10*3/uL 0-0.06 LYMPH x10^3 (test code = 731-0) 3.10 10*3/uL 1.09-3.23 MONO x10^3 (test code = 742-7) 0.65 10*3/uL 0.36-1.02 EOS x10^3 (test code = 711-2) 0.19 10*3/uL 0.06-0.53 BASO x10^3 (test code = 704-7) 0.06 10*3/uL 0.01-0.09 Lab Interpretation (test code = 67740-9) [facility] W [id number] 17:21:17CT Abdomen and Pelvis with intravenous contrast. [...] fluid inthe abdomen or in the pelvis.2. Hepatomegaly.[facility]. METABOLIC PANEL (67964)2020-09-06 16:39:00* Test Item Value Reference Range Interpretation Comme nts NA (test code = 1747367576) 138 mmol/L 135-145 K (test code = 3412604445) 4.2 mmol/L 3.5-5 CL (test code = 4587748372) 103 mmol/L 98-108 CO2 TOTAL (test code = 8801789532) 25 mmol/L 23-31 AGAP (test code = 0421962128) 2-16 BUN (test code = 1479475902) 17 mg/dL 7-23 GLUCOSE (test code = 9702181295) 124 mg/dL 70-110 H CREATININE (test code = 8769766745) 0.95 mg/dL 0.6-1.25 TOTAL BILI (test code = 9274043128) 0.4 mg/dL 0.1-1.1 CALCIUM (test code = 7225688949) 9.7 mg/dL 8.6-10.6 T PROTEIN (test code = 6621223153) 7.9 g/dL 6.3-8.2 ALBUMIN (test code = 6021225179) 4.5 g/dL 3.5-5 ALK PHOS (test code = 9881544531) 75 U/L 34-122 ALTv (test code = 1742-6) 28 U/L 5-50 AST(SGOT) (test code = 6939679893) 23 U/L 13-40 eGFR Calculation (Non-) (test code = 9240946385) mL/min/1.73m2 eGFR Calculation () (test code = 1550068919) mL/min/1.73m2 LAURIE (test code = LAURIE) Association [...] imaging tests). Lab Interpretation (test code = 00653-9) [facility] 16:39:00* Test Item Value Reference Range Interpretation Comme nts LIPASE (test code = 9113963186) 70 U/L 0-220 Lab Interpretation (test cod e = 03854-7) [facility]MAGN[facility]2020-11-18 16:39:00* Test Item Value Reference Range Interpretation Comme nts MAGNESIUM (test code = 0041626587) 1.9 mg/dL 1.7-2.4 Lab Interpretation (test cod e = 18880-1) [facility] PlanoLactic Acid Whole [id number] 16:38:00* Test Item Value Reference Range Interpretation Comme nts LACTIC ACID (test code = 0001358062) 1.51 mmol/L [facility] WITH [id number] 16:20:00* Test Item Value Reference Range Interpretation Comme nts WBC (test code = 6690-2) See_Comment [Automated messa ge] The system which generated this result transmitted reference range: 4.20 - 10.70 10*3/?L. The reference range was not used to interpret this result as normal/abnormal. RBC (test code = 789-8) See_Comment [Automated [employer]] The system which generated this result [...] 32.8 g/dL 31.2-35 RDW-SD (test code = 63571-8) 42.2 fL 38.5-51.6 RDW-CV (test code = 788-0) 12.6 % 12.1-15.4 PLT (test code = 777-3) See_Comment [Automated messa ge] The system which generated this result transmitted reference range: 150 - 328 10*3/?L. The reference range was not used to interpret this result as normal/abnormal. MPV (test code = 31753-6) 9.3 fL 9.8-13 L NRBC/100 WBC (test code = 7578798342) See_Comment [Automated [employer] ssage] The system which generated this result transmitted reference range: 0.0 - 10.0 /100 WBCs. The reference range was not used to interpret this result as normal/abnormal. NRBC x10^3 (test code = 1720800898) <0.01 See_Comment [Automated messa ge] The system which generated this result transmitted reference range: 10*3/?L. The reference range was not used to interpret this result as normal/abnormal. GRAN MAT (NEUT) % (test code = 770-8) 64.9 % IMM GRAN % (test code = 3705300260) 0.50 % LYMPH % (test code = 736-9) 25.0 % MONO % (test code = 5905-5) 7.5 % EOS % (test code = 713-8) 1.3 % BASO % (test code = 706-2) 0.8 % GRAN MAT x10^3(ANC) (test code = 1429345333) 5.99 10*3/uL 1.99-6.95 IMM GRAN x10^3 (test code = 6944747602) 0.05 10*3/uL 0-0.06 LYMPH x10^3 (test code = 731-0) 2.31 10*3/uL 1.09-3.23 MONO x10^3 (test code = 742-7) 0.69 10*3/uL 0.36-1.02 EOS x10^3 (test code = 711-2) 0.12 10*3/uL 0.06-0.53 BASO x10^3 (test code = 704-7) 0.07 10*3/uL 0.01-0.09 Lab Interpretation (test code = 24980-0) [facility] (23858)2020-08-30 10:29:00* Test Item Value Reference Range Interpretation Comme nts NA (test code = 6066619307) 139 mmol/L 135-145 K (test code = 2861262108) 4.7 mmol/L 3.5-5 CL (test code = 8959566412) 105 mmol/L 98-108 CO2 TOTAL (test code = 3008389630) 24 mmol/L 23-31 AGAP (test code = 5588448381) 2-16 BUN (test code = 4649047387) 21 mg/dL 7-23 GLUCOSE (test code = 8192865026) 109 mg/dL 70-110 CREATININE (test code = 2710676445) 0.99 mg/dL 0.6-1.25 TOTAL BILI (test code = 0050694991) 0.4 mg/dL 0.1-1.1 CALCIUM (test code = 8479314405) 9.4 mg/dL 8.6-10.6 T PROTEIN (test code = 7067416578) 7.4 g/dL 6.3-8.2 ALBUMIN (test code = 4114316897) 4.2 g/dL 3.5-5 ALK PHOS (test code = 4883881835) 68 U/L 34-122 ALTv (test code = 1742-6) 33 U/L 5-50 AST(SGOT) (test code = 7179401091) 28 U/L 13-40 eGFR Calculation (Non-) (test code = 7403461513) mL/min/1.73m2 eGFR Calculation () (test code = 2161889018) mL/min/1.73m2 LAURIE (test code = LAURIE) Association [...] in imaging tests). [facility] WITH [id number] 09:50:00* Test Item Value Reference Range Interpretation [...] 32.4 g/dL 31.2-35 RDW-SD (test code = 26343-6) 43.6 fL 38.5-51.6 RDW-CV (test code = 788-0) 13.0 % 12.1-15.4 PLT (test code = 777-3) See_Comment [Automated message] The system which generated this result transmitted reference range: 150 - 328 10*3/?L. The reference range was not used to interpret this result as normal/abnormal. MPV (test code = 11786-4) 10.0 fL 9.8-13 NRBC/100 WBC (test code = 7969252464) See_Comment [Automated message] The system which generated this result transmitted reference range: 0.0 - 10.0 /100 WBCs. The reference range was not used to interpret this result as normal/abnormal. NRBC x10^3 (test code = 3456937012) <0.01 See_Comment [Automated message] The system which generated this result transmitted reference range: 10*3/?L. The reference range was not used to interpret this result as normal/abnormal. GRAN MAT (NEUT) % (test code = 770-8) 80.1 % IMM GRAN % (test code = 6289195421) 0.50 % LYMPH % (test code = 736-9) 12.5 % MONO % (test code = 5905-5) 6.5 % EOS % (test code = 713-8) 0.1 % BASO % (test code = 706-2) 0.3 % GRAN MAT x10^3(ANC) (test code = 2547512601) 12.09 10*3/uL 1.99-6.95 H IMM GRAN x10^3 (test code = 3559075209) 0.08 10*3/uL 0-0.06 H LYMPH x10^3 (test code = 731-0) 1.89 10*3/uL 1.09-3.23 MONO x10^3 (test code = 742-7) 0.98 10*3/uL 0.36-1.02 EOS x10^3 (test code = 711-2) <0.03 0.06-0.53 L BASO x10^3 (test code = 704-7) 0.04 10*3/uL 0.01-0.09 Lab Interpretation (test code = 55701-8) [facility] (71749[facility] (ALB,T.PRO,BILI T,BU/BC,ALT,AST,ALK PHOS)2020-08-28 21:15:00* Test Item Value Reference Range Interpretation Comme nts TOTAL BILI (test code = 2876367389) 0.6 mg/dL 0.1-1.1 BILI UNCON (test code = 1944448408) 0.4 mg/dL 0.1-1.1 BILI CONJ (test code = 5209168022) 0.0 mg/dL 0-0.3 T PROTEIN (test code = 3982741713) 7.2 g/dL 6.3-8.2 ALBUMIN (test code = 3159582055) 3.9 g/dL 3.5-5 ALK PHOS (test code = 2997721789) 65 U/L 34-122 ALTv (test code = 1742-6) 20 U/L 5-50 AST(SGOT) (test code = 4597268246) 25 U/L 13-40 Lab Interpretation (test cod e = 97135-2) Normal [facility] ABDOMEN [id number] 18:22:30 Hepatomegaly with moderate hepatic steatosis. Cholelithiasis [...] sign which could be related to stone. [facility] [id number] 14:32:06No acute cardiopulmonary abnormality. Preliminary Report Dictated [...] have reviewed this study andagree with theabove report.[facility] (NA, K, CL, CO2, GLUCOSE, BUN, CREATININE, CA) 2020-08-28 11:39:00* Test Item Value Reference Range Interpretation Comme nts NA (test code = 9958323798) 137 mmol/L 135-145 K (test code = 0017575619) 3.9 mmol/L 3.5-5 CL (test code = 0189820166) 104 mmol/L 98-108 CO2 TOTAL (test code = 5109051418) 28 mmol/L 23-31 AGAP (test code = 7368079867) 2-16 BUN (test code = 1978064493) 15 mg/dL 7-23 GLUCOSE (test code = 0707430540) 96 mg/dL 70-110 CREATININE (test code = 5061701209) 0.68 mg/dL 0.6-1.25 CALCIUM (test code = 1778654453) 9.2 mg/dL 8.6-10.6 eGFR Calculation (Non-) (test code = 4992061879) mL/min/1.73m2 eGFR Calculation () (test code = 1470492733) mL/min/1.73m2 LAURIE (test code = LAURIE) Association [...] or urine or abnormalities in imaging tests). [facility]EL[facility] W WO [id number] 19:39:221. ?Diffuse bladder wall thickening is likely [...] reviewed this study and agree with theabove report.[facility]OMATED) 2020-08-27 19:34:00* Test Item Value Reference Range Interpretation Comme [facility] POCT GLU (test code = 3668993534) 95 mg/dL 70-110 Lab Interpretation (test cod e = 41502-6) [id number]:12[facility]* Test Item Value Reference Range Interpretation Comme [facility] TROPONIN I (test code = 8447589464) <0.012 See_Comment [Automated message] The system which [...] biotin. ? Lab Interpretation (test code = 86649-3) Normal [facility]2020-08-27 14:42:00* Test Item Value Reference Range Interpretation Comme [facility] POCT GLU (test code = 8535358055) 99 mg/dL 70-110 Lab Interpretation (test cod e = 91061-3) [facility]anoTROPONIN T2148-20-76 13:09:00* Test Item Value Reference Range Interpretation Comme [facility] TROPONIN I (test code = 2193799795) <0.012 See_Comment [Automated message] The system which [...] biotin. ? Lab Interpretation (test code = 17343-8) [facility]anoLIPID PANEL (82632)(TOTAL CHOLESTEROL, TRIGLYCERIDES, HDL)2020-08-27 08:31:00* Test Item Value Reference Range Interpretation Comme nts CHOL (test code = 6063570241) 208 mg/dL 120-200 H HDL (test code = 1927433420) 28 mg/dL >40 L HDLC RATIO (test code = 4370506300) See_Comment H [Automated [employer] ge] The system which generated this result transmitted reference range: <=5.0. The reference range was not used to interpret this result as normal/abnormal. TRIG (test code = 8586350675) 351 mg/dL 30-170 H LDL CHOL (test code = 30439-4) 110 mg/dL See_Comment [Automated [employer] ge] The system which generated this result transmitted reference range: <=160. The reference range was not used to interpret this result as normal/abnormal. VLDL (test code = 8198883513) 70 mg/dL 5-60 H Lab Interpretation (test code = 98429-2) [facility]anoTHYROID STIMULATING YLISRNQ4945-68-63 08:00:00 * Test Item Value Reference Range Interpretation Comme nts TSH (test code = 6114184224) See_Comment L Biotin has been reported to cause a negative bias, interpret results relative to patient's use of biotin. [Automated message] The system which generated this result transmitted reference range: 0.45 - 4.70 mIU/L. The reference range was not used to interpret this result as normal/abnormal. Lab Interpretation (test code = 04016-4) [facility]COVID[facility] (ID NOW RAPID TESTING)2020-08-27 07:03:00* Test Item Value Reference Range Interpretation Comme nts SARS-CoV-2 Rapid ID NOW (test code = 04275-0) Not Detected Not Detected LAURIE (test code = LAURIE) ID NOW COVID-19 As say is an isothermal nucleic acid amplification test intended for the qualitative detection of nucleic acid from SARS-CoV-2 viral RNA in nasopharyngeal (BARGE PILOT) specimens. It is used under Emergency Use [...] clinically indicated. Lab Interpretation (test code = 18688-3) Normal [facility] / [facility] - DRUG SCREEN AGRAYA4818-13-75 06:58:00* Test Item Value Reference Range Interpretation Comme nts BENZO U (test code = 2321192532) Negative Negative HORACIO U (test code = 2399316045) Negative Negative AMPHET (test code = 7240808436) Negative Negative THC (test code = 8163833536) Negative Negative METHADONE (test code = 0000142348) Negative Negative Meth U (test code = 8899797782) Negative Negative OPIATES (test code = 5131165687) Negative Negative Cocaine Metabolite (test code = 7992702663) Negative Negative PROPOXY (test code = 5083446597) Negative Negative Tric U (test code = 9308470220) Negative Negative PCP (test code = 7531431686) Negative Negative OXYCOD (test code = 7545130296) Negative Negative LAURIE (test code = LAURIE) [...] legal testing). Lab Interpretation (test code = 60719-2) [facility]anoUrinalysis2020-11-08 06:51:00* Test Item Value Reference Range Interpretation Comme nts APPEARANCE (test code = 9028593051) Clear Clear COLOR (test code = 9481612275) Yellow Yellow PH (test code = 1450424781) 4.8-8.0 SP GRAVITY (test code = 4313331636) 1.003-1.030 GLU U QUAL (test code = 8296224800) Normal Normal BLOOD (test code = 1879914511) Negative Negative KETONES (test code = 9642184320) 20 mg/dL Negative A PROTEIN (test code = 2887-8) Negative Negative UROBILIN (test code = 2566862343) Normal Normal BILIRUBIN (test code = 7229435932) Negative Negative NITRITE (test code = 9964886054) Negative Negative LEUK KENNY (test code = 3099370851) Negative Negative RBC/HPF (test code = 0511456049) See_Comment [Automated [employer]] The system which generated this result transmitted reference range: 0 - 3 HPF. The reference range was not used to interpret this result as normal/abnormal. WBC/HPF (test code = 9718020022) See_Comment [Automated [employer]] The system which generated this result transmitted reference range: 0 - 5 HPF. The reference range was not used to interpret this result as normal/abnormal. BACTERIA (test code = 8090955207) Negative Negative MUCOUS (test code = 8473284410) Slight Negative LPF A Lab Interpretation (test code = 22662-4) [facility]anoTroponin A9035-24-62 06:45:00* Test Item Value Reference Range Interpretation Comme nts TROPONIN I (test code = 5494371773) <0.012 See_Comment [Automated message] The system which [...] biotin. ? Lab Interpretation (test code = 44308-6) [facility]anoETHANOL2020-11-08 06:34:00* Test Item Value Reference Range Interpretation Comme nts ALCOHOL (test code = 2339292630) 14 mg/dL LAURIE (test code = LAURIE) <10 Dbfkqrgg84-194 Toxic>100 Depression of TRAFFIC DIVISION COMMANDING OFFICER>400 Fatalities Reported [facility]anoBasi Metabolic [facility] (NA, K, CL, CO2, GLUCOSE, BUN, CREATININE, CA)2020-08-27 06:33:00* Test Item Value Reference Range Interpretation Comme nts NA (test code = 7218884893) 137 mmol/L 135-145 K (test code = 7195084660) 3.6 mmol/L 3.5-5 CL (test code = 5009841044) 102 mmol/L 98-108 CO2 TOTAL (test code = 4340615961) 26 mmol/L 23-31 AGAP (test code = 4164639958) 2-16 BUN (test code = 1977028303) 13 mg/dL 7-23 GLUCOSE (test code = 7919324668) 119 mg/dL 70-110 H CREATININE (test code = 2226212048) 0.86 mg/dL 0.6-1.25 CALCIUM (test code = 4851346323) 9.8 mg/dL 8.6-10.6 eGFR Calculation (Non-) (test code = 3236961274) mL/min/1.73m2 eGFR Calculation () (test code = 3021364689) mL/min/1.73m2 LAURIE (test code = LAURIE) Association [...] imaging tests). Lab Interpretation (test code = 38271-4) [facility]anoHepatic Function Panel (ALB, T.PRO, BILI T, BU/BC, ALT, AST, ALK PHOS)2020-08-27 06:33:00* Test Item Value Reference Range Interpretation Comme nts TOTAL BILI (test code = 8173145885) 0.3 mg/dL 0.1-1.1 BILI UNCON (test code = 5973958455) 0.2 mg/dL 0.1-1.1 BILI CONJ (test code = 0317370420) 0.0 mg/dL 0-0.3 T PROTEIN (test code = 1622929555) 7.8 g/dL 6.3-8.2 ALBUMIN (test code = 7407492161) 4.5 g/dL 3.5-5 ALK PHOS (test code = 1269819956) 71 U/L 34-122 ALTv (test code = 1742-6) 26 U/L 5-50 AST(SGOT) (test code = 4927154844) 26 U/L 13-40 Lab Interpretation (test cod e = 65363-6) [facility]anoLipase Dvijf9252-49-26 06:33:00* Test Item Value Reference Range Interpretation Comme nts LIPASE (test code = 3521381471) 77 U/L 0-220 Lab Interpretation (test cod e = 63506-4) Normal [facility]anoaPTT2020-11-08 06:19:00* Test Item Value Reference Range Interpretation Comme [facility] APTT Patient (test code = 3173-2) See_Comment [Automated message] The system which generated this result transmitted reference range: 23 - 38 Seconds. The reference range was not used to interpret this result as normal/abnormal. LAURIE (test code = LAURIE) The [facility] patient population mean normal value for aPTT is 30 seconds. Lab Interpretation (test code = 86139-3) [facility]anoProthrombin Time (PT) / PSL3541-14-54 06:17:00 * Test Item Value Reference Range Interpretation Comme [facility] PROTIME PATIENT (test code = 5964-2) See_Comment [Automated [employer]] The system which generated this result transmitted reference range: 12.0 - 14.7 Seconds. The reference range was not used to interpret this result as normal/abnormal. INR (test code = 6301-6) Normal INR <1.1; Warfarin Therapeutic range 2.0 to 3.0 or 2.5 to 3.5, depending upon the indications. Lab Interpretation (test code = 92207-2) [facility]anoCBC with Rpdpqfbiucbb1323-11-33 06:07:00* Test Item Value Reference Range Interpretation Comme [facility] WBC (test code = 6690-2) See_Comment [Automated [employer]] The system which generated this result transmitted reference range: 4.20 - 10.70 10*3/?L. The reference range was not used to interpret this result as normal/abnormal. RBC (test code = 789-8) See_Comment [Automated [employer] ge] The system which generated this result [...] 32.8 g/dL 31.2-35 RDW-SD (test code = 01593-6) 42.9 fL 38.5-51.6 RDW-CV (test code = 788-0) 12.7 % 12.1-15.4 PLT (test code = 777-3) See_Comment [Automated [employer] ge] The system which generated this result transmitted reference range: 150 - 328 10*3/?L. The reference range was not used to interpret this result as normal/abnormal. MPV (test code = 19483-7) 9.1 fL 9.8-13 L NRBC/100 WBC (test code = 1593734937) See_Comment [Automated [employer] ssage] The system which generated this result transmitted reference range: 0.0 - 10.0 /100 WBCs. The reference range was not used to interpret this result as normal/abnormal. NRBC x10^3 (test code = 4436186910) <0.01 See_Comment [Automated [employer] ge] The system which generated this result transmitted reference range: 10*3/?L. The reference range was not used to interpret this result as normal/abnormal. GRAN MAT (NEUT) % (test code = 770-8) 52.4 % IMM GRAN % (test code = 0063263072) 0.50 % LYMPH % (test code = 736-9) 37.8 % MONO % (test code = 5905-5) 6.2 % EOS % (test code = 713-8) 2.3 % BASO % (test code = 706-2) 0.8 % GRAN MAT x10^3(ANC) (test code = 4084641007) 4.33 10*3/uL 1.99-6.95 IMM GRAN x10^3 (test code = 3176847964) 0.04 10*3/uL 0-0.06 LYMPH x10^3 (test code = 731-0) 3.13 10*3/uL 1.09-3.23 MONO x10^3 (test code = 742-7) 0.51 10*3/uL 0.36-1.02 EOS x10^3 (test code = 711-2) 0.19 10*3/uL 0.06-0.53 BASO x10^3 (test code = 704-7) 0.07 10*3/uL 0.01-0.09 Lab Interpretation (test code = 98135-5) [facility]anoSUMAN Y4107-08-88 04:41:00* Test Item Value Reference Range Interpretation Comme nts TROPONIN I (test code = 0058424816) 0.000 ng/mL See_Comment [Automated message] The system [...] biotin. ? Lab Interpretation (test code = 32805-9) [facility]anoADC / C - DRUG SCREEN DCZVNF1403-83-66 03:46:00* Test Item Value Reference Range Interpretation Comme nts BENZO U (test code = 1147222378) Negative Negative HORACIO U (test code = 8898050397) Negative Negative AMPHET (test code = 0396460506) Negative Negative THC (test code = 6238139516) Negative Negative METHADONE (test code = 4603525547) Negative Negative Meth U (test code = 5351741409) Negative Negative OPIATES (test code = 0673815204) Presumptive Positive Negative A Cocaine Metabolite (test code = 3668810875) Negative Negative PROPOXY (test code = 0624676119) Negative Negative Tric U (test code = 0476631946) Negative Negative PCP (test code = 5694202526) Negative Negative OXYCOD (test code = 8503610198) Negative Negative LAURIE (test code = LAURIE) [...] legal testing). Lab Interpretation (test code = 12829-1) [facility] PlanoD-XKONK0434-47-99 03:29:00* Test Item Value Reference Range Interpretation Comments D-DIMER (test code = 8443127875) <0.27 See_Comment [Automated message] The system which [...] a diagnosis. Lab Interpretation (test code = 47785-3) [facility]anoLIPASE2020-09-21 02:07:00* Test Item Value Reference Range Interpretation Comme nts LIPASE (test code = 6406625535) 58 U/L 0-220 Lab Interpretation (test cod e = 76056-8) [facility]anoXR CHEST 1 KS4529-53-59 01:44:02No acute cardiopulmonary abnormality. Preliminary Report Dictated [...] reviewed this study and agree with theabove report.[facility] TROPONIN V0616-54-50 01:40:00* Test Item Value Reference Range Interpretation Comme nts TROPONIN I (test code = 8371021303) 0.000 ng/mL See_Comment [Automated message] The system [...] biotin. ? Lab Interpretation (test code = 80043-8) [facility]anoPROTHROMBIN TIME / PGD8261-57-36 01:39:00* Test Item Value Reference Range Interpretation Comme [facility] PROTIME PATIENT (test [...] the indications. Lab Interpretation (test code = 72888-5) [facility]anoCOVID-19 (ID NOW RAPID TESTING)2020-07-10 01:36:00* Test Item Value Reference Range Interpretation Comme [facility] SARS-CoV-2 Rapid ID NOW (test code = 37447-4) Not Detected Not Detected LAURIE (test code = LAURIE) ID NOW COVID-19 As say is an isothermal nucleic acid amplification test intended for the qualitative detection of nucleic acid from SARS-CoV-2 viral RNA in nasopharyngeal (BARGE PILOT) specimens. It is used under Emergency Use [...] clinically indicated. Lab Interpretation (test code = 20162-3) Normal [facility]. METABOLIC PANEL (50067)2020-07-10 01:29:00* Test Item Value Reference Range Interpretation Comme nts NA (test code = 7998363995) 136 mmol/L 135-145 K (test code = 8709731453) 3.4 mmol/L 3.5-5 L CL (test code = 2926574285) 98 mmol/L 98-108 CO2 TOTAL (test code = 7538289461) 26 mmol/L 23-31 AGAP (test code = 9729854645) 2-16 BUN (test code = 1816866577) 16 mg/dL 7-23 GLUCOSE (test code = 1878282591) 165 mg/dL 70-110 H CREATININE (test code = 3060264162) 0.94 mg/dL 0.6-1.25 TOTAL BILI (test code = 7808525149) 0.4 mg/dL 0.1-1.1 CALCIUM (test code = 9554693699) 9.7 mg/dL 8.6-10.6 T PROTEIN (test code = 9199596084) 8.2 g/dL 6.3-8.2 ALBUMIN (test code = 1070236453) 4.4 g/dL 3.5-5 ALK PHOS (test code = 9122909120) 77 U/L 34-122 ALTv (test code = 1742-6) 31 U/L 5-50 AST(SGOT) (test code = 2457344576) 26 U/L 13-40 eGFR Calculation (Non-) (test code = 1258636758) mL/min/1.73m2 eGFR Calculation () (test code = 4361543906) mL/min/1.73m2 LAURIE (test code = LAURIE) Association [...] imaging tests). Lab Interpretation (test code = 76856-1) Abnormal [facility] WITH TNWA8163-88-17 01:11:00* Test Item Value Reference Range Interpretation Comme nts WBC (test code = 6690-2) See_Comment [Automated [employer]] The system which generated this result transmitted [...] 34.0 g/dL 31.2-35 RDW-SD (test code = 18096-8) 42.6 fL 38.5-51.6 RDW-CV (test code = 788-0) 13.0 % 12.1-15.4 PLT (test code = 777-3) See_Comment [Automated messa ge] The system which generated this result transmitted reference range: 150 - 328 10*3/?L. The reference range was not used to interpret this result as normal/abnormal. MPV (test code = 28962-8) 9.5 fL 9.8-13 L NRBC/100 WBC (test code = 1270887075) See_Comment [Automated [employer] ssage] The system which generated this result transmitted reference range: 0.0 - 10.0 /100 WBCs. The reference range was not used to interpret this result as normal/abnormal. NRBC x10^3 (test code = 5223754072) <0.01 See_Comment [Automated messa ge] The system which generated this result transmitted reference range: 10*3/?L. The reference range was not used to interpret this result as normal/abnormal. GRAN MAT (NEUT) % (test code = 770-8) 65.5 % IMM GRAN % (test code = 2846669349) 0.70 % LYMPH % (test code = 736-9) 26.1 % MONO % (test code = 5905-5) 5.7 % EOS % (test code = 713-8) 1.2 % BASO % (test code = 706-2) 0.8 % GRAN MAT x10^3(ANC) (test code = 0811370088) 6.62 10*3/uL 1.99-6.95 IMM GRAN x10^3 (test code = 8489714103) 0.07 10*3/uL 0-0.06 H LYMPH x10^3 (test code = 731-0) 2.64 10*3/uL 1.09-3.23 MONO x10^3 (test code = 742-7) 0.58 10*3/uL 0.36-1.02 EOS x10^3 (test code = 711-2) 0.12 10*3/uL 0.06-0.53 BASO x10^3 (test code = 704-7) 0.08 10*3/uL 0.01-0.09 Lab Interpretation (test code = 82794-3) [facility] Notes Date/Time Note Provider Source 2024-02-04 14:36:04 3YjoVE6yNskw42Kp93NURUlxRF2UKTNrbQ6z2 MI/THzHxo/OdhloHNbD5BpVrp109227-99-98 T14:36:04 Pt discharged with diagnosis of generalized abdominal pain and N/V. Printed and verbal instructions reviewed with and given to patient. No new prescriptions given for this visit. Pt verbalized understanding of teaching and recommended follow-up. Denies questions or concerns at this time. Pt ambulatory at discharge. Appears in no apparent distress. No ataxia noted. 03764-4Dmsovilws department HlbiCR2482-63-55Z84:36:32Emerchi [facility] department NoteTXT1.2.840.958649.1.13.104.2.7.2. 477604|[id number] for patient cmtf07434-4XpeyGEHCFCGGPZWOqcbrucsq C-CDA narrative vkfz473298646Zitra N Dewoody RNUTMBUT - [address] YsatVpprkjabqVmzlnkmfoZGIJ5467174492H OUQZCLXBIAXAYTTAVNTXE4662-28-49C73:36 :321.2.840.937889.1.72.3.15|1.2.840.1 19031.1.13.104.2.7.2.727879_[id number] 2 Iris Ferguson RN [facility] 2024-02-04 13:30:00 ginkPRRSi5USpfCegbUuT/4yZYlWZTdATjgKV BT0NCsLcfCkaXxhoc5OugbPyh577643-30-89 T13:30:00 Report from Korey LAZO. 56755-1Ckcsetzal department XcznLK7593-51-15D93:44:41[facility] department NoteTXT1.2.840.037485.1.13.104.2.7.2. 605969|[id number] for patient dnvk30173-5QfhcORWKAGRMGBFPcqxrjyws C-CDA narrative mtxy480992026Nqsvwi R Potter RN[address]QjbxXhphppihcMcphjspayDEGU2810917496D IXNAWDULHTHDXQYECVCMY0702-96-52P53:44 :411.2.840.091155.1.72.3.15|1.2.840.1 06950.1.13.104.2.7.2.727879_[id number] 6 Belkys Corrigan RN [facility] 2024-02-04 10:46:14 XFI6KrgfN2GA3XRE8e2Unu0GkupLmrgNIfDIq l5BrGqtHKGI2XLl+ikOM6f3PDMt8778-40-37 T10:46:14 Pt arrived via private car with RLQ abd pain starting 2-3 days ago abd becoming worse 02445-1Bhramlbzs department Triage dymvFQ7689-37-23X08:48:58[facility] department Triage noteTXT1.2.840.923692.1.13.104.2.7.2. 999639|[id number] for patient ulsh91100-6Cvxyckajr department NoteLNNARRATIVEFormatted C-CDA narrative [id number] L Korey RN[id number] CBMITWSDDVZHEIZQHLFMI3393-41-20V43:48 :581.2.840.887449.1.72.3.15|1.2.840.1 17094.1.13.104.2.7.2.727879_[id number] 8 Shalini Aria Nair RN [facility] 2023-12-28 04:24:01 I5Ug3Sy3kRooX8+JhaHrsoadpyYnBEAH9I+2h 0NphpQho6no5ibr5W3c48KBl0Z54005-51-76 T04:24:01 Pt given printed and verbal discharge instructions regarding epigastric pain, encouraged smaller meals.Pt verbalized understanding of instructions,pt encouraged to follow up with pcp and or GIAdvised to seek medical attention for new/prolonged/worsening of symptoms,Awake, alert oriented, resp reg unlabored, skin w/d, pt leaving in no apparent distress, 86585-4Abkwuxpyo department AmcsDN3557-56-98Z54:24:37[facility] department NoteTXT1.2.840.761982.1.13.104.2.7.2. 980359|[id number] for patient rqwx17737-2HlglMKAXJDALXXDWalhjborn C-CDA narrative fblc387333834Taplmg R Shehadeh RNUT[id number] KMLSWYWPPINXHFRGFSZHF3204-95-85B17:24 :371.2.840.647296.1.72.3.15|1.2.840.1 80454.1.13.104.2.7.2.727879_[id number] 3 Cynthia Aorradeh VIOLET [facility] 2023-12-28 03:42:02 oC9SN+AQ9AaBBGXl1URUQ/02cq+sTiGN4PfVn c6cBJpwxbBsDai5MDcQWzMbHs353801-81-73 T03:42:02 Pt reports the GI cocktail did not relieve his discomfort. Pt states he can feel his food coming up his esophagus. Pt is requesting medication for pain. 42816-4Bdljddhzo department IesoHX9022-87-69N45:43:54Emergen department NoteTXT1.2.840.755274.1.13.104.2.7.2. 853741|[id number] for patient ghyb58475-8MlonDVYKDKVTUDYIwqvpulvn C-CDA narrative irkj175531686Wxgoqxe A Diaz RN[address] HblzGqkmvuuqlLfkfomumdCPAS6390268221Z IQFWSSELPNYIACLUQVTXX5269-14-44M20:43 :541.2.840.379084.1.72.3.15|1.2.840.1 28086.1.13.104.2.7.2.727879_[id number] 4 Vira Huang RN [facility] 2023-12-28 03:07:24 Jmez75suaKKNO12Lbc+oSuB/EKYhmvGJc8ESX rkgHr6SticKtIkz9veSUvhIJ5xJ5147-34-24 T03:07:24 Patient ambulatory to ED c/o waking up around 0100 this AM to food feeling like it was coming back up from his stomach to mouth. Patient last ate around 1900 and went to bed around 2200. Patient states having headache, denies N/V/D. Tylenol taken around 1900 for headache. 48686-0Huycurhou department Triage bmpmDS8670-78-00M45:14:37[facility] department Triage noteTXT1.2.840.370537.1.13.104.2.7.2. 103596|[id number] for patient xpmu02781-3Hcypcgqdk department NoteLNNARRATIVEFormatted C-CDA narrative [id number]-Bjreg McInnis RN[address] BaihWbdesnhioXsvxikidlJVVB3144809609P JYIBVUDSWQXUITOCQCYKE0347-25-79I93:14 :371.2.840.152377.1.72.3.15|1.2.840.1 09087.1.13.104.2.7.2.727879_[id number] 8 Sarina Graham RN [facility] 2023-12-28 03:06:00 //fHFvEdEw/GxHniFKhUiWq54Z5ZZ9LE3UbC +NwgqOWPSjxforE8rpYkUktS/qJ3574-41-75 T03:06:00 [facility] Emergency Department NotePatient Name: Marysol Lazo of : 1975 48 year old maleTreatment Room: Room/bed info not foundMedical Record Number: [id number] Care Physician: PATIENT DOES NOT HAVE A PCPPatient Escorted by: Friend [6]Mode of Arrival: Personal means [1]EMS Treatment Prior to ED Arrival:BENEFITS MANAGER treatment: Medication (comment)BENEFITS MANAGER treatment comments: TylenolTravel and Exposure Screening:SymptomsDoes patient [...] palpitations/SOB.History provided by: Patient and medical recordsLanguage cigarette machines mechanic used: YesAbdominal PainPain location: EpigastricPain quality: fullnessPain [...] CHOLECYSTECTOMY N/A 08/29/2020Surgeon: Vaishali Vicente MD; Location: [facility] OR LocationOTHERTesticular surgeryTONGUE TO LIP SURGERYTONSILLECTOMYReview of [...] 20 mgFirst Provider Eval:ED EventsDate/Time Event User Oiredrws27/10/24 0309 Medical Screening Begins CHAPITO CONTRERAS MD [...] needed for Cough for up to 20 doses.GRUFNUNYIT-KXLJUGICWEXJX-HOWN 50-325-40 MG TABLET Take 1 tablet by [...] on fileFollow-up:Contact information for follow-upAllison Sanchez MDSpecialty: [facility] AND TD[address]HCG[address] AMINCCD723PE [address] [address]Ldpyq: [phone] signed by:Chapito Contreras MD12/28/23 0414 98465-9Nurgkcdar Emergency department BwliVR2286-36-86D23:14:14Physician Emergency department NoteTXT1.2.840.159265.1.13.104.2.7.2. 550822|[id number] for patient guum76895-6Oypojwoxj department NoteLNNARRATIVEFormatted C-CDA narrative text[address] JgobPxvactvbvGzjvavlciGBDC8369936585Z HWMEJPHVGKPJEPXYEXCZQ0757-33-69S40:14 :141.2.840.581031.1.72.3.15|1.2.840.1 99480.1.13.104.2.7.2.727879_[id number] 3 [facility] 2023-11-06 02:36:40 JzwRDhJvbHuUSuunzCyfkngZv2OO0M184fAgQ wa/ZN1eWXFfv4jSr6trJQpoHYoM8606-50-51 T02:36:40 Pt given printed and verbal discharge [...] with steady gait, in no apparent distress 77848-3Jsbhxeamv department FkyoCO4201-52-70H06:37:39[facility] department NoteTXT1.2.840.671479.1.13.104.2.7.2. 777947|[id number] for patient jfmu95146-5YsagNDYUSJAXGSPPhzuzvvqt C-CDA narrative [id number] A Diaz RN[address] SdybPzjynqjqzGvfwrzrorUWLI5325636233N MKCHBKQKABMGAOPIYGMAY4880-73-79P36:37 :391.2.840.791226.1.72.3.15|1.2.840.1 85010.1.13.104.2.7.2.727879_[id number] 8 Vira Huang RN [facility] 2023-11-05 23:47:32 YeC2TGpLciQGEEiA497v3kLa7Sxh6FUyFrgii QYXeaDo1TqBC3JcOBEQjpRVYrgY2295-17-67 T23:47:32 Patient ambulatory to ED c/o abd pain that started yesterday. Patient went to PCP today and patient states no prescriptions were given. Patient states vomiting twice [employer]. Last medication taken was Tylenol tonight.Patient is tearful in triage. 18063-2Mjmsycjtd department Triage amnzAY4352-16-43U46:52:16Emerchi [facility] department Triage noteTXT1.2.840.919793.1.13.104.2.7.2. [id number] for patient pkgn60585-5Eyzfedzeh department NoteLNNARRATIVEFormatted C-CDA narrative [id number]-Dvjls Santos LAZOUT[id number] IRUUNCZWRPCBXGYGYNFSJ7980-29-37C42:52 :161.2.840.601521.1.72.3.15|1.2.840.1 [id number] 3 Sarina Santos RN [facility] 2023-11-01 04:18:58 uYwtATyvMj61lI+qMgTgdsfw55WrhnLYvnzah hKmW5UHIO1/yr9E7uPjT2oKGxzP1876-28-76 T04:18:58 Pt given printed and verbal discharge [...] with steady gait, in no apparent distress 02778-5Rvflgraoo department QkegTA2853-41-81S72:19:28Emergency department NoteTXT1.2.840.902585.1.13.104.2.7.2. 036658|[id number] for patient wblo30756-6TxsrJNSYNTHCUVSLjgzubcmi C-CDA narrative text[id number] GPALATCSMIUQRIZYQMMSX1609-43-55Y84:19 :281.2.840.254481.1.72.3.15|1.2.840.1 71828..13.104.2.7.2.727879_[id number] 6 [facility] 2023-10-31 23:33:52 xMggO+wn0fw8YSBryA9Ud8ED9G1p+ri5fDev8 GwQ/rOOsQrPpC3NyPWeYF3AkoPr1194-27-65 T23:33:52 Pt arrived c/o RLQ/epigastric abdominal pain, vomiting, and headache. Pain began yesterday.PMH: Gallbladder removed 2/3 years ago 66740-4Ehnbdsbjy department Triage dlyxOZ1295-16-35O74:37:25[facility] department Triage noteTXT1.2.840.106824.1.13.104.2.7.2. 838034|[id number] for patient eiac66358-1Vrotxwanc department NoteLNNARRATIVEFormatted C-CDA narrative textUT[address] Gi[id number] VMVWQHWEQERVQNTRSLOYP5975-48-27J75:37 :251.2.840.090637.1.72.3.15|1.2.840.1 34928.1.13.104.2.7.2.727879_[id number] 8 [facility] 2023-10-31 23:28:00 snjHEAie2VdZjCqSLEnGZpeacu6tXjhIEL9Nx /8aPkUcWViQHCgo5NyS7wSuvH4n8816-22-23 T23:28:00 [facility] Emergency Department NotePatient Name: Marysol Lazo of : 1975 48 year old maleTreatment Room: [facility]/KU4Sieqotm Record Number: [id number] Care Physician: PATIENT DOES NOT HAVE A PCPPatient Escorted by: Family [5]Mode of Arrival: Personal means [1]EMS Treatment Prior to ED Arrival:BENEFITS MANAGER treatment: NoneTravel and Exposure Screening:SymptomsDoes patient have [...] CHOLECYSTECTOMY N/A 08/29/2020Surgeon: Vaishali Vicente MD; [place] [facility] [place] surgeryTONGUE TO LIP SURGERYTONSILLECTOMYReview of Systems:Review of [...] No obvious mass, no hernia sac, testicles-nl. [place], nontenderMusculoskeletal:General: Normal range of motion.Skin:General: Skin is [...] identified in the abdomen or pelvis.RL: 460AFC: [id number] signed by Chantal Lee MD, PhD at 11/01/2023 3:00 AMLab Results:Lab ResultsCOMP. METABOLIC PANEL (34110) - AbnormalResult Value Ref RangeNA 138 135 [...] U/LAST(SGOT) 33 13 - 40 U/LeGFR 118.8 mL/min/1.74s7OFN WITH DIFF - AbnormalWBC 11.54 (*) 4.20 [...] needed for Cough for up to 20 doses.QRVHHHTYRF-LLTQQDWQAJHMX-JRGV 50-325-40 MG TABLET Take 1 tablet by [...] fileFollow-up:Electronically signed by:Jose Francisco Walters MD11/01/23 0332 63701-7Zohqdwegd Emergency department XdhpBH3195-34-43D12:32:28Physician Emergency department NoteTXT1.2.840.018540.1.13.104.2.7.2. 636259|[id number] for patient vtzr23371-1Iagyyjlup department NoteLNNARRATIVEFormatted C-CDA narrative text[id number] IFZNTVPXGTCXNKRLKBMQF1657-46-92B54:32 :281.2.840.806905.1.72.3.15|1.2.840.1 24228.1.13.104.2.7.2.727879_[id number] 1 [facility] 2023-10-23 02:26:31 RaDljQ8P08K15kKEs+gUmAr0l17WmbAu5Csh1 3jSkjHSVO9TYR0iCiY0MT2wlyFM2140-31-12 T02:26:31 Pt given printed and verbal discharge [...] with steady gait, in no apparent distress. [address]-7Trqoucs[address] UaixIU5129-93-44J07:31:16[facility] NoteTXT1.2.840.316547.1.13.104.2.7.2. 633452|[id number] for patient sclg02150-0CssyJSVHFTRTKFLPvasnhigb C-CDA narrative bdvk046804899Vdxnhc D Roman RNUT[id number] HOXZZTOUJSKAMQTCDLZTG0824-96-46T98:31 :161.2.840.003647.1.72.3.15|1.2.840.1 94794.1.13.104.2.7.2.727879_[id number] 9 More Zamudio RN [facility] 2023-10-22 23:44:24 fxw7s7gcOeLgBEkLMjNTgz3WRlkEQKdd5KUQA ZMrzV6A5V1UPVToOgAywgQavlKh2502-48-36 T23:44:24 CC: Pt reports RLQ abd pain and 2 episodes of vomiting since morning. Pt has BM this morning was normal.PMHx: HTN, BZ8Hqaot, alert, oriented, resp reg unlabored, skin warm, color appropriate for race, moves all ext without difficulty, amb with steady gait 20556-3Xfzmndjzl department Triage syypYM9604-77-92O78:45:27[facility] department Triage noteTXT1.2.840.742156.1.13.104.2.7.2. 752416|[id number] for patient piyx00946-6Ejsobrdxm department NoteLNNARRATIVEFormatted C-CDA narrative textUT[address] Jkwg[id number] FJLSAIJHKKFXRNMGNLQRW2826-81-32T15:45 :271.2.840.517945.1.72.3.15|1.2.840.1 24705.1.13.104.2.7.2.727879_[id number] 5 [facility] 2023-10-22 23:33:00 4kpT4l2OtFbI0srZrqQdpBGMAy5rwxdbJOEtx jm7cNQnGhbuxrSMQSziCTbbAMn43063-72-53 T23:33:00 [facility] Emergency Department NotePatient Name: Marysol Lazo of : 1975 48 year old maleTreatment Room: TX2/VY9Nfoxjwc Record Number: [id number] Care Physician: PATIENT DOES NOT HAVE A PCPPatient Escorted by: Family [5]Mode of Arrival: Personal means [1]EMS Treatment Prior to ED Arrival:BENEFITS MANAGER treatment: Medication (comment)BENEFITS MANAGER treatment comments: 2 tylenol 2 hrs agoTravel [...] 3History provided by: Medical records and patientLanguage cigarette machines mechanic used: NoAbdominal PainPain location: RLQPain quality: sharpPain [...] CHOLECYSTECTOMY N/A 08/29/2020Surgeon: Vaishali Vicente MD; [place] [facility] [place]icular surgeryTONGUE TO LIP SURGERYTONSILLECTOMYReview of Systems:Review of [...] identified in the abdomen or pelvis.Normal appendix.RL: 460AFC: 02131Bcvggugitgoxle signed by Chantal Lee MD, PhD at 10/23/2023 1:44 AMLab Results:Lab ResultsCOMP. METABOLIC PANEL (34648) - AbnormalResult Value Ref RangeNA 140 135 [...] U/LAST(SGOT) 33 13 - 40 U/LeGFR 107.0 mL/min/1.38e5ZKG WITH DIFF - AbnormalWBC 11.85 (*) 4.20 [...] mg tabletFirst Provider Eval:ED EventsDate/Time Event User Fzzcbosu75/04/24 2353 Medical Screening Begins CHAPITO CONTRERAS MD [...] needed for Cough for up to 20 doses.QBFXHJTZYU-POGJELZBDUXAN-PYRQ 50-325-40 MG TABLET Take 1 tablet by [...] these medicationsNo medications on fileFollow-up:Contact information for follow-upMeOmaira srivastava MDSpecialty: IM-QTOIGSFKGQJRRRHX[address] [place] [address]Yujhb: [phone] signed by:Chapito Contreras MD10/23/23 0220 74098-3Nyjdrmzft Emergency department LgepWX9386-98-41H79:20:23Physician Emergency department NoteTXT1.2.840.757723.1.13.104.2.7.2. 715530|[id number] for patient bajs90079-5Ayacdnraj department NoteLNNARRATIVEFormatted C-CDA narrative textUT[address] Eby[id number] KGXDYCBLEGLXFKEYCJSQE5759-32-54P30:20 :231.2.840.203683.1.72.3.15|1.2.840.1 02324.1.13.104.2.7.2.727879_[id number] 7 [facility] 2023-07-07 05:55:19 04pm+dWNh/5UK//O7jXaG9SaR7i+H3TwMvvZE v88hYb3m6KpUHQKy0NTh8RrcW6N9948-91-23 T05:55:19 Awake, alert oriented X4, respiratory even [...] ER noted upon dischargePt ambulated [facility] with steady gait 70125-1Nrxgjnikc department IftkYI9099-83-04P32:56:11[facility] department NoteTXT1.2.840.059422.1.13.104.2.7.2. 627308|[id number] for patient dbwr84023-5HgfcKWWCNTKIHJ[id number] YNQBKNITBQUPAKXIQPYGD1640-44-50X80:56 :111.2.840.837818.1.72.3.15|1.2.840.1 79267.1.13.104.2.7.2.727879_[id number] 5 [facility] 2023-07-07 03:54:59 cYdjdFB8EurV/Zcm9/1+GL9thzI17OehCb38p VaqCOByOCYJIwR/QMBYUV6H4+F/2023-07-07 T03:54:59 Pt states that he last night his blood pressure was running high and he has headache. 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 Pt state that he took his enalapril around 2300 last night. 86673-0Aekotfwkl department Triage rjnuEN3400-56-50R25:57:11[facility] department Triage noteTXT1.2.840.950384.1.13.104.2.7.2. 600083|[id number] for patient ewho99717-5Trvgqyxpa department [id number] VJZULBYUZRBXMMFLWPJIK9542-38-03L10:57 :111.2.840.118396.1.72.3.15|1.2.840.1 62075.1.13.104.2.7.2.727879_[id number] 6 [facility] 2023-07-07 03:49:00 JnYa87psQlKzO0EpLJL39umKkaVpz0dtSUpnH uLtY/k+jNztCcuAtlB6AzT70K6g7225-39-58 T03:49:00 [facility] Emergency Department NotePatient Name: Marysol Lazo of : 1975 47 year old maleTreatment Room: [address] Record Number: [id number] Care Physician: PATIENT DOES NOT HAVE A PCPPatient Escorted by: Self [9]Mode of Arrival: Personal means [1]EMS Treatment Prior to ED Arrival:BENEFITS MANAGER treatment: None Travel and Exposure Screening:SymptomsDoes patient [...] traumaHistory provided by: Patient and medical recordsLanguage cigarette machines mechanic used: No HypertensionSeverity: ModerateOnset quality: SuddenDuration: 2 hoursTiming: SporadicChronicity: ChronicTime since last dose of antihypertensive: 2 hoursNotable BENEFITS MANAGER blood pressures: 198/112Context: normal sodium, not caffeine, [...] N/A 08/29/2020 Surgeon: Vaishali Vicente MD; Location: [facility] OR Location OTHER Testicular surgery TONGUE [...] display Lab Results:Lab Results COMP. METABOLIC PANEL (20914) - Abnormal Result Value Ref Range NA [...] Encounter Procedures TROPONIN I COMP. METABOLIC PANEL (86626) LIPASE, SERUM CBC WITH DIFF URINALYSIS Orders Placed This Encounter Medications ketorolac (TORADOL) injection 30 mg metoclopramide HCl (REGLAN) injection 10 mg ocggeeapiy-yylczjqmfdxrb-ngly 50-325-40 mg tablet First Provider Eval:ED Events Date/Time Event User Comments 07/07/230 Medical Screening Begins CHAPITO CONTRERAS MD -- [...] Discharge Medications:Patient's Medications START taking these medications JXOVUXWCLH-UHZICUXKXTWMX-WWLV 50-325-40 MG TABLET Take 1 tablet by [...] for follow-up Ulises Carter MD Specialty: PN-NEUROLOGY RUST AND [address] [address] Electronically signed by: Chapito Contreras MD07/07/23 0553 49846-5Aybofnqlg Emergency department UxtyVB6930-93-71C55:53:28Physician Emergency department NoteTXT1.2.840.995591.1.13.104.2.7.2. 148999|[id number] for patient glql56688-6Vtqdepcxt department NoteLN[id number] NYIONOOOKQWNNMLISZMYP6184-39-38R87:53 :281.2.840.775910.1.72.3.15|1.2.840.1 24775.1.13.104.2.7.2.727879_[id number] 1 [facility] 2023-05-25 22:36:27 jZArnWSyB+e7hB8mIfomqbPZZQppNNctRjbNS f7MCDtoPtoay6+pwy1F7JezJizE3222-37-67 T22:36:27 Pt given printed and verbal discharge [...] with steady gait, in no apparent distress 99941-5Lkshkcxsc department BqjcQQ3990-87-56S04:37:47[facility] department NoteTXT1.2.840.747609.1.13.104.2.7.2. 776542|[id number] for patient jyyq21996-9FjilVP665320322Emsyahx A [address] RN[id number] SQROYUBJIEHKNKJCCJNMN8388-03-46W84:37 :471.2.840.275966.1.72.3.15|1.2.840.1 82210.1.13.104.2.7.2.727879_[id number] 9 Vira Huang RN [facility] 2023-05-25 17:15:02 LWOuXvkgUxO8nb96XPgNhOt1jur7IoLHBXFAw FDXwo1STZU3yCkHWI1W5517WhLY7724-54-60 T17:15:02 Pt arrived via private car with c/o chest pain that started about 3 hours BENEFITS MANAGER, EKG done in triage, PA assessing pt at this time. 57562-6Aneudasxa department Triage wrikRI3735-29-52E94:20:33[facility] department Triage noteTXT1.2.840.878781.1.13.104.2.7.2. 297154|[id number] for patient pzyb09358-8Iibnttmaq department BrlhPJ292645901Fzkxu L [address] RNUT[address] Diaz [id number] RKRETQXJOUVBNWBXABABR0229-90-18K81:20 :331.2.840.178468.1.72.3.15|1.2.840.1 36293.1.13.104.2.7.2.727879_[id number] 0 Shalini Nair RN [facility]
[2024-02-09 22:47] LABS: Absolute Basophils 0.1 K/uL (0-0.5); Absolute Eosinophils 0.1 K/uL (0-0.5); Absolute Lymphocytes (CBC) 2.7 K/uL (0.7-4.9); Absolute Monocytes 0.8 K/uL (0.1-1.3); Absolute Neutrophil 7.8 K/uL (1.8-8.0); Basophils % 0.7 % (0-1.3); Eosinophils % 0.9 % (0-4.4); Hemoglobin 15.7 g/dL (13.6-17.9); Lymphocytes % 23.3 % (15.3-44.8); MCH 30.5 pg (27.0-35.0); MCHC 33.4 g/dL (32.0-36.0); MCV 91.2 fL (80-100); MPV 7.5 fL (7.6-11.3); Monocytes % 7.2 % (3.3-12.3); Neutrophils % 67.9 % (41.7-73.7); Nucleated Red Blood Cells % 0.1 % (0-0); Platelets 294 thou/uL (152-406); RBC Red Blood Cell Count 5.16 M/uL (4.33-5.43); Red Cell Distribution Width 13.5 % (12.1-15.2)
[2024-02-09 23:03] LABS: Anion Gap 9.8 mEq/L (5.0-15.0); Potassium 3.8 mEq/L (3.5-5.1); Troponin High Sensitivity 56.5 pg/mL (<58.9)
[2024-02-09] MEDS ORDERED: DIPHENHYDRAMINE 50 MG/ML VIAL ONE (23:05)
[2024-02-09] MEDS ORDERED: METOCLOPRAMIDE 10 MG/2mL INJ ONE (23:05)
[2024-02-09] MEDS ORDERED: NITROGLYCERIN 0.4 MG/TAB SL ONE (23:05)
[2024-02-10] MEDS ORDERED: ASPIRIN 81 MG CHEWABLE TABLET ONE (01:06)
[2024-02-10 01:50] LABS: Troponin High Sensitivity 55.7 pg/mL (<58.9)
--- NOTE | 2024-02-10 02:22 | EDPHYS ---
Physician Documentation [facility] Name: Carrington Dumont Age: 48 yrs Sex: Male : 1975 Arrival Date: 02/09/2024 Time: 22:15 Bed 2 Private MD: ED Physician Moisés Rush HPI: 02/09 00:47 This 48 yrs old Male presents to ER via Ambulatory with complaints of Chest ci Pain. 00:47 Patient is a 48-year-old male with PMH hypertension, hypothyroidism, CAD s/p PCI 3 days ci ago who presents to the ED with left sided chest pain that began this evening while he was sitting at home. Chest pain is pressure-like, constant, rated 10/10, no aggravating or relieving factors. Denies diaphoresis, shortness of breath, nausea/vomiting. Patient does endorse a headache that came on gradually. . Historical: - Allergies: 02/08 22:39 No Known Allergies; as6 - PMHx: 22:39 Hypertension; Hypothyroidism; as6 - PSHx: 22:39 Cholecystectomy; Stented artery; as6 - Immunization history:: Adult Immunizations up to date. - Infectious Disease History:: Denies. - Social history:: Smoking status: Patient/guardian denies using tobacco, Stopped _ months ago 1. ROS: 02/09 00:47 Constitutional: Negative for fever, chills, and weight loss, ci Cardiovascular: Positive for chest pain, Negative for edema, orthopnea, palpitations, Respiratory: Negative for cough, shortness of breath, wheezing, Neuro: Positive for headache, Negative for altered mental status, dizziness, gait disturbance, numbness, seizure activity, syncope, weakness, Exam: 00:00 ECG was reviewed by the Attending Physician. NSR no acute ischemic changes, HR 96, QTC ci 00:47 Constitutional: This is a well developed, well nourished patient who is awake, alert, ci and in no acute distress. Head/Face: Normocephalic, atraumatic. Eyes: Pupils equal round and reactive to light, extra-ocular motions intact. Lids and lashes normal. Conjunctiva and sclera are non-icteric and not injected. Cornea within normal limits. Periorbital areas with no swelling, redness, or edema. ENT: Nares patent. No nasal discharge, no septal abnormalities noted. Tympanic membranes are normal and external auditory canals are clear. Oropharynx with no redness, swelling, or masses, exudates, or evidence of obstruction, uvula midline. Mucous membranes moist. Neck: Trachea midline, no thyromegaly or masses palpated, and no cervical lymphadenopathy. Supple, full range of motion without nuchal rigidity, or vertebral point tenderness. No Meningismus. Chest/axilla: Normal chest wall appearance and motion. Nontender with no deformity. No lesions are appreciated. Cardiovascular: Regular rate and rhythm with a normal S1 and S2. No gallops, murmurs, or rubs. Normal PMI, no JVD. No pulse deficits. Respiratory: Lungs have equal breath sounds bilaterally, clear to auscultation and percussion. No rales, rhonchi or wheezes noted. No increased work of breathing, no retractions or nasal flaring. Abdomen/GI: Soft, non-tender, with normal bowel sounds. No distension or tympany. No guarding or rebound. No evidence of tenderness throughout. Back: No spinal tenderness. No costovertebral tenderness. Full range of motion. Skin: Warm, dry with normal turgor. Normal color with no rashes, no lesions, and no evidence of cellulitis. MS/ Extremity: Pulses equal, no cyanosis. Neurovascular intact. Full, normal range of motion. Neuro: Awake and alert, GCS 15, oriented to person, place, time, and situation. Cranial nerves II-XII grossly intact. Motor strength 5/5 in all extremities. Sensory grossly intact. Cerebellar exam normal. Normal gait. Psych: Awake, alert, with orientation to person, place and time. Behavior, mood, and affect are within normal limits. Vital Signs: 02/08 22:36 BP 176 / 100; Pulse 102; Resp 20 S; Temp 98.4(O); Pulse Ox 99% on R/A; Weight 110.68 kg as6 (R); Height 5 ft. 8 in. (R); Pain 10/10; 23:00 BP 190 / 91; Pulse 99; Resp 18 S; Pulse Ox 98% on R/A; ha1 02/09 00:13 BP 131 / 94; Pulse 77; Resp 17 S; Pulse Ox 94% on R/A; ha1 00:30 BP 137 / 89; Pulse 77; Resp 20; Pulse Ox 99% on R/A; km8 01:00 BP 138 / 83; Pulse 72; Resp 18; Pulse Ox 95% on R/A; km8 01:30 BP 135 / 83; Pulse 71; Resp 18; Pulse Ox 97% on R/A; km8 02:00 BP 132 / 80; Pulse 75; Resp 16; Pulse Ox 98% on R/A; km8 02/08 22:36 Body Mass Index 37.10 (110.68 kg, 172.72 cm) as6 02/08 22:36 Pain Scale: Adult as6 MDM: 02/08 22:23 Patient medically screened. ci 02/09 00:00 Counseling: I had a detailed discussion with the patient and/or guardian regarding the ci historical points, exam findings, and any diagnostic results supporting the discharge/admit diagnosis, lab results, radiology results, the need for outpatient follow up, to return to the emergency department if symptoms worsen or persist or if there are any questions or concerns that arise at home. Medication response: Nitro x 1 relieved pain. ED course: CP resolved. HST negative x2. CXR with no acute findings. CTH with no ICH, skull fx. Low suspicion for aortic dissection, no pulse or neuro deficits, CP not migratory/knife-like. Stable for discharge with close outpatient follow up. 00:47 Differential diagnosis: acute myocardial infarction, acute pericarditis, coronary ci artery disease congestive heart failure pericarditis, pneumonia, stable angina, unstable angina. HEART Score: History: Moderately Suspicious (1), ECG: Non specific repolarization disturbance / LBTB / PM (1), Age: > 45 and < 65 years (1), Risk Factors: 1 or 2 risk factors (1), [Hypertension] Troponin: < or = 1 x Normal Limit (0), Total Score = 4. The patient was given aspirin in the Emergency Department. Data reviewed: vital signs, nurses notes. 02/08 22:32 Order name: Basic Metabolic Panel; Complete Time: 23:37 ha1 02/08 23:44 Interpretation: Abnormal: GLUC 201. ci 02/08 22:32 Order name: CBC with Diff; Complete Time: 22:57 ha1 02/08 23:04 Interpretation: WBC 11.50. ci 02/08 22:32 Order name: Troponin HS; Complete Time: 23:37 ha1 02/09 00:33 Order name: NT PRO-BNP; Complete Time: 02:01 02/09 02:02 Interpretation: NT PRO-BNP 53. ci 02/09 00:33 Order name: Troponin HS; Complete Time: 02:01 ci 02/09 02:02 Interpretation: Within normal limits: Troponin HS 55.7. ci 02/08 22:32 Order name: XRAY Chest (1 view) [facility] 02/08 22:58 Order name: CT Head Brain wo Cont ci 02/08 22:32 Order name: Cardiac monitoring; Complete Time: 22:34 [facility] 02/08 22:32 Order name: EKG - Nurse/Tech; Complete Time: 22:34 [facility] 02/08 22:32 Order name: IV Saline Lock; Complete Time: 22:37 [facility] 02/08 22:32 Order name: Labs collected and sent; Complete Time: 22:37 [facility] 02/08 22:32 Order name: O2 Per Protocol; Complete Time: 22:34 [facility] 02/08 22:32 Order name: O2 Sat Monitoring; Complete Time: 22:34 [facility] Administered Medications: 02/08 23:11 Drug: metoCLOPramide IVP 5 mg IVP once; over 1 to 2 minutes Route: IVP; Site: right [address]; 02/09 01:10 Follow up: Response: No adverse reaction [facility] 02/08 23:12 Drug: Nitroglycerin Sublingual 0.4 mg Sublingual once Route: Sublingual; [facility] 02/09 01:10 Follow up: Response: No adverse reaction [facility] 02/08 23:13 Drug: diphenhydrAMINE IVP 12.5 mg IVP once Route: IVP; Site: right hand; [facility] 02/09 01:10 Follow up: Response: No adverse reaction [facility] 01:10 Drug: Aspirin PO Chewable Tablet 324 mg PO once; 81 mg tablets x 3 Route: PO; [facility] 02:07 Follow up: Response: No adverse reaction 8 Disposition Summary: 02/10/24 02:22 Discharge Ordered Notes: Location: Home ci Condition: Stable ci Diagnosis - Chest pain, unspecified ci Followup: ci - With: Private Physician - When: 2 - 3 days - Reason: Recheck today's complaints, Re-evaluation by your physician Discharge Instructions: - Discharge Summary Sheet ci - Nonspecific Chest Pain, Adult, Wdxk-ly-Oqqr ci Forms: - Medication Reconciliation Form ci - Antibiotic Education ci - Prescription Opioid Use ci - Patient Portal Instructions ci - Leadership Thank You Letter ci Signatures: Dispatcher [employer] Rivas Short RN RN as6 Debbi Yuan RN RN ha1 Moisés Rush Katie RN RN km8
--- NOTE | 2024-02-10 02:22 | ER ---
Nurse's Notes [facility] Name: Carrington Dumont Age: 48 yrs Sex: Male : 1975 Arrival Date: 02/09/2024 Time: 22:15 Bed 2 Private MD: Diagnosis: Chest pain, unspecified Presentation: 02/08 22:36 Chief complaint: Patient states: chest pain and headache that started today. pt had a as6 heart cath 3 days prior. Coronavirus screen: At this time, the client does not indicate any symptoms associated with coronavirus-19. Ebola Screen: No symptoms or risks identified at this time. Initial Sepsis Screen: Does the patient meet any 2 criteria? No. Patient's initial sepsis screen is negative. Does the patient have a suspected source of infection? No. Patient's initial sepsis screen is negative. Risk Assessment: Do you want to hurt yourself or someone else? Patient reports no desire to harm self or others. Onset of symptoms was February 09, 2024. 22:36 Acuity: DAYANNA 2 as6 22:36 Method Of Arrival: Ambulatory as6 Triage Assessment: 22:39 General: Appears uncomfortable, Behavior is calm, cooperative. Pain: Complains of pain as6 in head and chest. Historical: - Allergies: 22:39 No Known Allergies; as6 - PMHx: 22:39 Hypertension; Hypothyroidism; as6 - PSHx: 22:39 Cholecystectomy; Stented artery; as6 - Immunization history:: Adult Immunizations up to date. - Infectious Disease History:: Denies. - Social history:: Smoking status: Patient/guardian denies using tobacco, Stopped _ months ago 1. Screenin:37 [facility] ED Fall Risk Assessment (Adult) History of falling in the last 3 months, ha1 including since admission No falls in past 3 months (0 pts) Confusion or Disorientation No (0 pts) Intoxicated or Sedated No (0 pts) Impaired Gait No (0 pts) Mobility Assist Device Used No (0 pt) Altered Elimination No (0 pt) Score/Fall Risk Level 0 - 2 = Low Risk Oriented to surroundings, Maintained a safe environment, Hourly rounding (assess needs \T\ fall precautionary measures) done. Abuse screen: Denies threats or abuse. Denies injuries from another. Nutritional screening: No deficits noted. Tuberculosis screening: No symptoms or risk factors identified. Assessment: 22:21 General: Appears uncomfortable, Behavior is cooperative. Pain: Complains of pain in ha1 chest Pain does not radiate. Pain currently is 10 out of 10 on a pain scale. Quality of pain is described as aching, pressure, Pain began suddenly. Neuro: Level of Consciousness is awake, alert, obeys commands, Oriented to person, place, time, situation. Cardiovascular: Reports chest pain, Capillary refill < 3 seconds Patient's skin is warm and dry. Respiratory: Airway is patent Respiratory effort is even, unlabored, Respiratory pattern is regular, symmetrical. GI: Abdomen is round non-distended. : No signs and/or symptoms were reported regarding the genitourinary system. Derm: Skin is pink, warm \T\ dry. Musculoskeletal: Circulation, motion, and sensation intact. Range of motion: intact in all extremities. 23:24 Reassessment: Patient appears in no apparent distress at this time. No changes from km8 previously documented assessment. Patient and/or family updated on plan of care and expected duration. Pain level reassessed. Patient is alert, oriented x 3, equal unlabored respirations, skin warm/dry/pink. 02/09 01:10 Reassessment: Patient appears in no apparent distress at this time. No changes from km8 previously documented assessment. Patient and/or family updated on plan of care and expected duration. Pain level reassessed. Patient is alert, oriented x 3, equal unlabored respirations, skin warm/dry/pink. 02:02 Reassessment: Patient appears in no apparent distress at this time. No changes from km8 previously documented assessment. Patient and/or family updated on plan of care and expected duration. Pain level reassessed. Patient is alert, oriented x 3, equal unlabored respirations, skin warm/dry/pink. Vital Signs: 02/08 22:36 BP 176 / 100; Pulse 102; Resp 20 S; Temp 98.4(O); Pulse Ox 99% on R/A; Weight 110.68 kg as6 (R); Height 5 ft. 8 in. (R); Pain 10/10; 23:00 BP 190 / 91; Pulse 99; Resp 18 S; Pulse Ox 98% on R/A; ha1 02/09 00:13 BP 131 / 94; Pulse 77; Resp 17 S; Pulse Ox 94% on R/A; ha1 00:30 BP 137 / 89; Pulse 77; Resp 20; Pulse Ox 99% on R/A; km8 01:00 BP 138 / 83; Pulse 72; Resp 18; Pulse Ox 95% on R/A; km8 01:30 BP 135 / 83; Pulse 71; Resp 18; Pulse Ox 97% on R/A; km8 02:00 BP 132 / 80; Pulse 75; Resp 16; Pulse Ox 98% on R/A; km8 02/08 22:36 Body Mass Index 37.10 (110.68 kg, 172.72 cm) as6 02/08 22:36 Pain Scale: Adult as6 ED Course: 02/08 22:17 Patient arrived in ED. ra3 22:21 Patient has correct armband on for positive identification. Placed in gown. Bed in low ha1 position. Call light in reach. Side rails up X 1. 22:22 Moisés Rush is Attending Physician. ci 22:34 EKG done, by ED staff, reviewed by Moisés Rush. as6 22:37 Basic Metabolic Panel Sent. ha1 22:37 CBC with Diff Sent. ha1 22:37 Troponin HS Sent. ha1 22:37 Inserted saline lock: 20 gauge in right hand, using aseptic technique. Blood collected. km8 22:39 Triage completed. as6 22:43 PT-INR Sent. km8 22:44 Kamryn Russell, RN is Primary Nurse. km8 22:44 O2 via room air. km8 22:44 Arm band placed on left wrist. km8 22:44 Client placed on continuous cardiac and pulse oximetry monitoring. NIBP monitoring km8 applied. monitoring analyst on. Pulse ox on. NIBP on. 22:50 XRAY Chest (1 view) In Process Unspecified. EDMS 23:32 CT Head Brain wo Cont In Process Unspecified. EDMS 02/09 01:10 NT PRO-BNP Sent. km8 01:10 Troponin HS Sent. km8 02:10 No provider procedures requiring assistance completed. km8 02:10 Provided Education on: d/c teaching. km8 02:39 IV discontinued, intact, bleeding controlled, No redness/swelling at site. Pressure km8 dressing applied. Administered Medications: 02/08 23:11 Drug: metoCLOPramide IVP 5 mg IVP once; over 1 to 2 minutes Route: IVP; Site: right ha hand; 02/09 01:10 Follow up: Response: No adverse reaction km8 02/08 23:12 Drug: Nitroglycerin Sublingual 0.4 mg Sublingual once Route: Sublingual; [facility] 02/09 01:10 Follow up: Response: No adverse reaction km8 02/08 23:13 Drug: diphenhydrAMINE IVP 12.5 mg IVP once Route: IVP; Site: right hand; [facility] 02/09 01:10 Follow up: Response: No adverse reaction km8 01:10 Drug: Aspirin PO Chewable Tablet 324 mg PO once; 81 mg tablets x 3 Route: PO; km8 02:07 Follow up: Response: No adverse reaction km8 Medication: 02/08 22:44 VIS not applicable for this client. km8 Outcome: 02/09 02:22 Discharge ordered by . kaela 02:39 Discharged to home ambulatory, km8 02:39 Condition: good 02:39 Discharge instructions given to patient, Instructed on discharge instructions, follow up and referral plans. Demonstrated understanding of instructions, follow-up care, 02:40 Patient left the ED. km8 Signatures: Dispatcher [employer] EDRivas Reyes RN RN as6 Debbi Yuan RN RN ha1 Moisés Rush Katie, RN RN km8 April Dugan
[2024-02-10 03:15] VITALS: BP 132/80; TEMP 98.4; O2SAT 98
--- NOTE | 2024-02-10 13:44 | RAD REPORT ---
EXAM DESCRIPTION: CT - Head Brain Wo Cont - 02/10/2024 3:41 am CLINICAL HISTORY: 48 years Male, HEADACHE TECHNIQUE: 5 mm axial images were obtained along with 3 mm reformatted coronal and sagittal images. This exam was performed according to our departmental dose-optimization program, which includes autom ated exposure control, adjustment of the mA and/or kV according to patient size and/or use of iterati ve reconstruction technique. COMPARISON: None. FINDINGS: No acute abnormal extracerebral fluid collections are demonstrated. The cortical sulci, ventricles, and cisterns are within normal limits. There are no areas of altered attenuation identified to suggest acute hemorrhage, infarction, or mass lesion. The visualized portions of the paranasal sinuses and mastoid air cells are clear. IMPRESSION: 1. No acute abnormalities. Electronically signed by: Husam Ibrahim MD 02/09/2024 11:44 PM CDT Due to temporary technical issues with the PACS/Fluency reporting system, reports are being signed by the in house radiologists without review as a courtesy to insure prompt reporting. The interpreting radiologist is fully responsible for the content of the report
--- NOTE | 2024-02-10 14:42 | RAD REPORT ---
EXAM DESCRIPTION: RAD - Chest Single View - 02/09/2024 10:48 pm CLINICAL HISTORY: 48 years, Male, CHEST PAIN COMPARISON: 02/05/2024 FINDINGS: 1 views of the chest was obtained. Prior films were compared. There is slight decreased lung volume. Mediastinum: The cardiomediastinal silhouette appears normal in size and shape. Lungs: No areas of consolidations or masses are identified. Heart: The heart is normal in size. Thoracic aorta: The thoracic aorta demonstrate to be normal. Pulmonary vasculature: The pulmonary vasculature is normal in distribution. Pleura: The costophrenic angles demonstrate to be sharp. Osseous structures: The bony structures demonstrate to be within normal limits. Other: External EKG leads within the [id number] limits diagnosis. IMPRESSION: No acute cardiopulmonary disease is seen Electronically signed by: Chris Hoyos MD 02/09/2024 10:56 PM CDT Due to temporary technical issues with the PACS/Fluency reporting system, reports are being signed by the in house radiologists without review as a courtesy to insure prompt reporting. The interpreting radiologist is fully responsible for the content of the report
== END 2024-02-10 02:40 | disposition home or self-care (01) ==
LOC: ER 22:15
DX: R07.9 Chest pain, unspecified (principal)
CPT/HCPCS: 36415; 70450; 71045; 80048; 83880; 84484; 85025; 85610; 93005; J1200; J2765

== ENCOUNTER 2024-03-09 20:10 | Inpatient (IN) | payer SELFPAY ==
--- OUTSIDE RECORDS SUMMARY | 2024-03-09 20:20 | XMS REPORT | Continuity of Care Document ---
Author Name Unknown Address [address] [facility]. [address] [place] [address] [facility] Address [address] [facility] [address] [place] [address] Care Team Providers Care Market Consultant Name Role Phone PCP, PATIENT DOES NOT HAVE A Primary Care Physic bala Unavailable BABS BUSTAMANTE Attending Clinician Unavailable CHAPITO CONTRERAS Attending Clinician Unavailable Chapito Contreras MD Attending Clinician [phone] Nidia SOLANO Attending Clinician Unavailable Nidia Goss Attending Clinician [phone] JOSE FRANCISCO WALTERS Attending Clinician Unavailable Jose Francisco Walters MD Attending Clinician [phone] LOREN TAM Attending Clinician Unavailable LOREN TAM Attending Clinician Unavailable Loren Tam DO Attending Clinician [phone] Doctor Unassigned, [place] Attending Clinician U Patrick Quiroz Attending Clinician [phone] PATRICK VERGARA Attending Clinician Unavailable SOFIA ESCOBAR Attending Clinician Unavailable SOFIA ESCOBAR Attending Clinician Unavailable MARIE MORALES Attending Clinician Unavailab Marie Cespedes DO Attending Clinician [phone] SAQIB CLARKE Attending Clinician Unavailable Saqib Clarke DO Attending Clinician [phone] BENJAMIN ASHFORD Attending Clinician Unavailable Benjamin Ashford MD Attending Clinician [phone] Geoff Cardona MD Attending Clinician [phone] GEOFF CARDONA Attending Clinician Unavailable Kiki Mathur MD Attending Clinician [phone] KIKI MATHUR Attending Clinician UnavailGricelda Sherman MD Attending Clinician [phone] BABS BUSTAMANTE Admitting Clinician Unavailable JOSE FRANCISCO WALTERS Admitting Clinician Unavailable CHAPITO CONTRERAS Admitting Clinician Unavailable LOREN TAM Admitting Clinician Unavailable PATRICK VERGARA Admitting Clinician Unavailable Nidia SOLANO Admitting Clinician Unavailable MARIE MORALES Admitting Clinician Unavailab Gricelda Brooks MD Admitting Clinician [phone] Payers Payer Name Policy Type Policy Number Effective Date Expirati on Date Source MEDICAID ALI[place] PENDING PENDING 2024 00:00:00 [employer] [id number] 2023 00:00:[address] [facility] [id number] 2023 00:00:00 Problems Condition Name Condition Details Condition Category Status Onset Date Resolution Date Last Treatment Date Treating Clinician Comments Source Obesity (BMI 30-39.9) Obesity (BMI 30-39.9) Disease Active 05-08 00:00: 00 [facility] Cigarette nicotine dependence without complicati on Cigarette nicotine dependence without complicati on Disease Active 2019-10 00:00: 00 [facility] Atypical chest pain Atypical chest pain Disease Active 2019-10 00:00: 00 [facility] Essential hypertensi on Essential hypertensi on Disease Active 2019-10 00:00: 00 [facility] No known active problems No known active problems Disease [facility] Allergies, Adverse Reactions, Alerts Allergy Name Allergy Type Status Severity Reaction(s) Onset Date Inactive Date Treating Clinician Comments Source Penicill in Propensi ty to adverse reaction s Active Unknown - See comments 03-30 00:00: 00 [facility] PENICILL IN DRUG INGREDI Active Unknown-Cmnt 2018-0 6-11 00:00: 00 [facility] NO KNOWN ALLERGIE S Drug Class Active [facility] Social History Social Habit Start Date Stop Date Quantity Comments Source History of tobacco use Cigarette Smoker [facility] History SDOH Alcohol Frequency [facility] History SDOH Alcohol Std Drinks [facility] History SDOH Alcohol Binge [facility] Alcohol intake 2024-02-04 00:00:00 2024-02-04 00:00:00 Current drinker of alcohol (finding) [facility] Exposure to SARS-CoV-2 (event) 2023-02-10 00:00:00 2023-02-20 18:06:00 Not sure [facility] Cigarettes smoked current (pack per day) - Reported 2021-05-08 00:00:00 2021-05-08 00:00:00 [facility] Alcohol Comment 2021-05-08 00:00:00 2021-05-08 00:00:00 6beers on the weekend [facility] Tobacco use and exposure 2021-05-08 00:00:00 2021-05-08 00:00:00 Smokeless tobacco non-user [facility] History of Social function 2020-08-29 00:00:00 2020-08-29 00:00:00 [facility] Sex Assigned At 1975 00:00:00 1975 00:00:00 [facility] Smoking Status Start Date Stop Date Source Smokes tobacco daily 2021-05-08 00:00:00 [facility] Never smoker [facility] Medications Ordered Medication Name Filled Medication Name Start Date Stop Date Current Medication? Ordering Clinician Indication Dosage Frequency Signature (SIG) Comments Components Source iopamidol (ISOVUE 370-500 mL) injection 85 mL 02-03 18:00: 00 02-03 18:00 :00 No [id number] 85mL 85 mL, Intravenou s, ONCE, 1 dose, On Fri02/04/24 at 1300, Routine [facility] morpHINE (2 mg/mL) injection 2 mg 02-03 17:45: 00 02-03 18:48 :00 No 2mg 2 mg, Slow IV Push, ONCE, 1 dose, On Fri02/04/24 at 1245, STAT [facility] ondansetron (ZOFRAN (PF)) injection 4 mg 02-03 16:30: 00 02-03 17:15 :00 No 4mg 4 mg, Slow IV Push, ONCE, 1 dose, On Fri02/04/24 at 1130, [facility]WN [facility] ketorolac (TORADOL) injection 15 mg 02-03 16:30: 00 02-03 17:16 :00 No 15mg 15 mg, Slow IV Push, ONCE, 1 dose, On Fri02/04/24 at 1130, FAWN [facility] sodium chloride (NS) injection 5 mL 02-03 15:28: 49 Yes 5mL 5 mL, Intravenou s, PRN, Starting on Fri02/04/24 at 1028, Until Discontinu ed, Routine, IV line flushing [facility] dicyclomine (BENTYL) injection 20 mg 12-27 09:15: 00 Yes 20mg 20 mg, Intramuscu lar, QID, First dose on Fri12/28/23 at 0415, Until Discontinu ed, Routine [facility] maalox:diph enhydrAMINE :lidocaine 2 % viscous 1:1:1 (FIRST-MOUT HWASH BLM) oral suspension 15 mL 12-27 08:30: 00 12-27 08:27 :00 No 15mL 15 mL, Oral, ONCE, 1 dose, On Fri12/28/23 at 0330, Routine [facility] maalox:diph enhydrAMINE :lidocaine 2 % viscous 1:1:1 (FIRST-MOUT HWASH BLM) oral suspension 15 mL 11-06 07:15: 00 11-06 07:38 :00 No 15mL 15 mL, Oral, ONCE, 1 dose, On Ale 11/06/23 at 0115, Routine [facility] famotidine (PEPCID (PF)) injection 20 mg 11-06 07:15: 00 11-06 07:38 :00 No 20mg 20 mg, Slow IV Push, ONCE, 1 dose, On Ale 11/06/23 at 0115, [facility] NaCl 0.9% (NS) bolus infusion 1,000 mL 11-06 07:15: 00 11-06 07:38 :00 No 1000mL at 999 mL/hr, 1,000 mL, IV Infusion, ONCE, 1 dose, On Ale 11/06/23 at 0115, STAT [facility] ondansetron (ZOFRAN (PF)) injection 4 mg 11-06 07:15: 00 11-06 06:19 :00 No 4mg 4 mg, Slow IV Push, ONCE, 1 dose, On Ale 11/06/23 at 0115, FAWN [facility] dicyclomine (BENTYL) injection 20 mg 11-06 07:00: 00 11-06 07:00 :00 No 20mg 20 mg, Intramuscu lar, ONCE, 1 dose, On Ale 11/06/23 at 0100, Routine [facility] dicyclomine 20 mg tablet 11-06 00:00: 00 Yes 20mg Take 1 tablet by mouth 4 (four) times daily. Indication s: abdominal pain [facility] famotidine (PEPCID) 40 mg tablet 11-06 00:00: 00 Yes [id number] 40mg Take 1 tablet by mouth daily. [facility] acetaminoph en (TYLENOL) tablet 650 mg 11-01 09:30: 00 11-01 09:30 :00 No 650mg 650 mg, Oral, ONCE, 1 dose, On 11/01/23 at 0330, FAWN [facility] iopamidol (ISOVUE 370-500 mL) injection 100 mL 11-01 09:30: 00 11-01 09:30 :00 No [id number] 100mL 100 mL, Intravenou s, ONCE, 1 dose, On 11/01/23 at 0330, Routine [facility] morpHINE (4 mg/mL) injection 4 mg 11-01 07:00: 00 11-01 06:56 :00 No 4mg 4 mg, Slow IV Push, ONCE, 1 dose, On 11/01/23 at 0100, STAT [facility] ketorolac (TORADOL) injection 30 mg 11-01 06:45: 00 11-01 06:00 :00 No 30mg 30 mg, Slow IV Push, ONCE, 1 dose, On 11/01/23 at 0045, FAWN [facility] NaCl 0.9% (NS) bolus infusion 1,000 mL 11-01 06:45: 00 11-01 07:59 :00 No 1000mL at 999 mL/hr, 1,000 mL, IV Piggyback, ONCE, 1 dose, On 11/01/23 at 0045, STAT [facility] ondansetron (ZOFRAN (PF)) injection 4 mg 11-01 06:00: 00 11-01 05:59 :00 No 4mg 4 mg, Slow IV Push, ONCE, 1 dose, On 11/01/23 at 0000, [facility]WN [facility] morpHINE (4 mg/mL) injection 4 mg 11-01 06:00: 00 11-01 06:00 :00 No 4mg 4 mg, Slow IV Push, ONCE, 1 dose, On 11/01/23 at 0000, STAT [facility] famotidine (PEPCID) 20 mg tablet 11-01 00:00: 00 Yes [id number] 20mg Take 1 tablet by mouth 2 (two) times daily. [facility] dicyclomine 20 mg tablet 11-01 00:00: 00 Yes [id number] 20mg Take 1 tablet by mouth 3 (three) times daily as needed for Abdominal pain. [facility] iopamidol (ISOVUE 370-500 mL) injection 100 mL 10-23 08:00: 00 10-23 08:00 :00 No [id number] 100mL 100 mL, Intravenou s, ONCE, 1 dose, On Ale 10/23/23 at 0200, Routine [facility] FENTanyl PF (SUBLIMAZE (PF)) injection 50 mcg 10-23 08:00: 00 10-23 07:01 :00 No 50ug 50 mcg, Slow IV Push, ONCE, 1 dose, On Ale 10/23/23 at 0200, Routine [facility] ketorolac (TORADOL) injection 30 mg 10-23 07:15: 00 10-23 06:08 :00 No 30mg 30 mg, Slow IV Push, ONCE, 1 dose, On Ale 10/23/23 at 0115, Routine [facility] ondansetron (ZOFRAN (PF)) injection 4 mg 10-23 06:15: 10-23 06:08 :00 No 4mg 4 mg, Slow IV Push, ONCE, 1 dose, On Ale 10/23/23 at 0015, FAWN [facility] ketorolac 10 mg tablet 10-23 00:00: 00 Yes [id number] 10mg Take 1 tablet by mouth every 6 (six) hours as needed for Pain (scale 7-10). [facility] iopamidol (ISOVUE 370-500 mL) injection 100 mL 2022-10 07:15: 00 09-26 07:15 :00 No [id number] 100mL 100 mL, Intravenou s, ONCE, 1 dose, On Fri09/26/23 at 0115, Routine [facility] it[facility] ketorolac (TORADOL) injection 30 mg 2022-10 07:00: 00 09-26 06:12 :00 No 30mg 30 mg, Slow IV Push, ONCE, 1 dose, On Fri09/26/23 at 0100, Routine Univers [facility] NaCl 0.9% (NS) bolus infusion 1,000 mL 2022-10 06:00: 00 09-26 06:15 :00 No 1000mL at 999 mL/hr, 1,000 mL, IV Infusion, ONCE, 1 dose, On Fri09/26/23 at 0000, [facility] morpHINE (4 mg/mL) injection 4 mg 2022-10 05:30: 00 09-26 05:19 :00 No 4mg 4 mg, Slow IV Push, ONCE, 1 dose, On Ale 09/25/23 at 2330, STAT [facility] lactulose (CEPHULAC) solution 60 mL 2022-10 05:15: 00 09-26 05:13 :00 No 60mL 60 mL, Oral, ONCE, 1 dose, On Ale 09/25/23 at 2315, [facility] ondansetron (ZOFRAN (PF)) injection 4 mg 2022-10 05:15: 00 09-26 05:13 :00 No 4mg 4 mg, Slow IV Push, ONCE, 1 dose, On Ale 09/25/23 at 2315, [facility] SEMAGLUTIDE , WEIGHT LOSS, SC 2022-10 02:30: 30 Yes inject under the skin. [facility] iopamidol (ISOVUE 370-500 mL) injection 75 mL 2022-10 09:00: 00 08-24 09:00 :00 No [id number] 75mL 75 mL, Intravenou s, ONCE, 1 dose, On Fri08/24/23 at 0300, Routine [facility] ondansetron (ZOFRAN (PF)) injection 4 mg 2022-10 06:30: 00 08-24 08:15 :00 No 4mg 4 mg, Slow IV Push, ONCE, 1 dose, On Fri08/24/23 at 0130, [facility] morpHINE (4 mg/mL) injection 4 mg 2022-10 06:30: 00 08-24 08:14 :00 No 4mg 4 mg, Slow IV Push, ONCE, 1 dose, On Fri08/24/23 at 0130, STAT [facility] aspirin tablet 325 mg 2022-10 05:15: 00 08-24 05:18 :00 No 325mg 325 mg, Oral, ONCE, 1 dose, On Fri08/24/23 at 0015, STAT [facility] ketorolac (TORADOL) injection 30 mg 07-07 10:45: 00 07-07 09:53 :00 No 30mg 30 mg, Slow IV Push, ONCE, 1 dose, On Fri07/07/23 at 0545, Routine [facility] metoclopram glenroy HCl (REGLAN) injection 10 mg 07-07 09:45: 00 07-07 09:54 :00 No 10mg 10 mg, Slow IV Push, ONCE, 1 dose, On Fri07/07/23 at 0445, [facility] butalbital- acetaminoph en-caff 50-325-40 mg tablet 07-07 00:00: 00 Yes [id number] 1{tbl} Take 1 tablet by mouth every 6 (six) hours as needed (Headache) . [facility] metFORMIN (GLUCOPHAGE ) tablet 500 mg 05-26 13:00: 00 Yes 500mg 500 mg, Oral, BID MEALS, First dose on Fri05/26/23 at 0800, Until Discontinu ed, Routine [facility] ketorolac (TORADOL) injection 15 mg 05-26 03:00: 00 05-26 02:19 :00 No 15mg 15 mg, Slow IV Push, ONCE, 1 dose, On Fri05/25/23 at 2200, [facility] nitroglycer in (NITROL) 2 % ointment 0.5 Inch 05-25 23:30: 00 05-26 01:27 :00 No .5[in_u s] 0.5 Inch, Transderma l (Apply To Skin), ONCE, 1 dose, On Fri05/25/23 at 1830, [facility] maalox:diph enhydrAMINE :lidocaine 2 % viscous 1:1:1 (FIRST-MOUT HWASH BLM) oral suspension 15 mL 05-25 23:30: 00 05-26 00:49 :00 No 15mL 15 mL, Oral (Swish & Swallow), ONCE, 1 dose, On Entiat 05/25/23 at 1830, Routine [facility] aspirin chewable tablet 324 mg 05-25 23:30: 00 05-25 22:24 :00 No 324mg 324 mg, Oral, ONCE, 1 dose, On Entiat 05/25/23 at 1830, Routine [facility] metFORMIN 500 mg tablet 05-25 00:00: 00 Yes [id number] 500mg Take 1 tablet by mouth 2 (two) times daily. [facility] naproxen (NAPROSYN) 500 mg tablet 05-25 00:00: 00 02-03 00:00 :00 No [id number] 500mg Take 1 tablet by mouth 2 (two) times daily with meals. [facility] cloNIDine (CATAPRES) tablet 0.2 mg 02-21 00:45: 00 02-21 01:50 :00 No .2mg 0.2 mg, Oral, ONCE, 1 dose, On [facility] 02/20/23 at 1945, [facility] ibuprofen (IBU) tablet 600 mg 02-20 23:30: 00 02-20 23:30 :00 No 600mg 600 mg, Oral, ONCE, 1 dose, On [facility] 02/20/23 at 1830, [facility] ibuprofen 600 mg tablet 02-20 00:00: 00 02-03 00:00 :00 No [id number] 600mg Take 1 tablet by mouth every 6 (six) hours as needed for Pain (scale 4-6) for up to 30 doses. [facility] iopamidol (ISOVUE 370-500 mL) injection 100 mL 3-12 09:15: 00 12-29 09:15 :00 No [id number] 100mL 100 mL, Intravenou s, ONCE, 1 dose, On 12/29/22 at 0415, Routine [facility] ketorolac (TORADOL) injection 30 mg 12-29 09:00: 00 12-29 07:53 :00 No 30mg 30 mg, Slow IV Push, ONCE, 1 dose, On 12/29/22 at 0400, Routine [facility] ondansetron (ZOFRAN) 4 mg tablet 12-29 00:00: 00 Yes [id number] 4mg Take 1 tablet by mouth every 8 (eight) hours as needed for Nausea and Vomiting (N/V). [facility] ketorolac 10 mg tablet 12-29 00:00: 00 Yes [id number] 10mg Take 1 tablet by mouth every 6 (six) hours as needed for Pain (scale 7-10). [facility] maalox:diph enhydrAMINE :lidocaine 2 % viscous 1:1:1 (FIRST-MOUT HWASH BLM) oral suspension 15 mL 11-21 08:45: 00 11-21 08:36 :00 No 15mL 15 mL, Oral, ONCE, 1 dose, On Ale 11/21/22 at 0245, [facility] metoclopram glenroy HCl (REGLAN) tablet 10 mg 06-02 12:30: 00 Yes 10mg 10 mg, Oral, AC, First dose on 06/02/22 at 0730, Until Discontinu ed, Routine [facility] dexamethaso ne (DECADRON PHOSPHATE) injection 10 mg 06-02 06:00: 00 06-02 04:55 :00 No 10mg 10 mg, Oral, ONCE, 1 dose, On 06/02/22 at 0100, Routine [facility] butalbital- acetaminoph en-caff (ESGIC) 50-325-40 mg tablet 1 tablet 06-02 05:00: 00 06-02 04:56 :00 No 1{tbl} 1 tablet, Oral, ONCE, 1 dose, On 06/02/22 at 0000, [facility] diphenhydrA MINE (BENADRYL) tablet 50 mg 06-02 05:00: 00 06-02 04:54 :00 No 50mg 50 mg, Oral, ONCE, 1 dose, On Fri06/02/22 at 0000, [facility] levothyroxi ne (SYNTHROID) tablet 100 mcg 05-29 11:00: 00 Yes 100ug 100 mcg, Oral, QAM-0600, First dose on Fri05/29/22 at 0600, Until Discontinu ed, Routine [facility] levothyroxi ne 200 mcg tablet 05-28 13:18: 02 05-28 00:00 :00 No 300ug Take 300 mcg by mouth every morning. [facility] levothyroxi ne 300 mcg tablet 05-28 00:00: 00 08-27 05:59 :00 No [id number] 300ug Take 1 tablet by mouth every morning for 90 days. [facility] ketorolac (TORADOL) injection 15 mg 05-06 06:30: 00 05-06 05:30 :00 No 15mg 15 mg, Slow IV Push, ONCE, 1 dose, On Fri05/06/22 at 0130, FA[facility] iopamidol (ISOVUE 370-500 mL) injection 65 mL 05-06 06:00: 00 05-06 06:15 :00 No [id number] 65mL 65 mL, Intravenou s, ONCE, 1 dose, On Fri05/06/22 at 0115, Routine [facility] benzonatate 200 mg capsule 05-06 00:00: 00 Yes [id number] 200mg Take 1 capsule by mouth 3 (three) times daily as needed for Cough for up to 20 doses. [facility] ondansetron 4 mg disintegrat ing tablet 05-06 00:00: 00 Yes [id number] 4mg Take 1 tablet by mouth every 8 (eight) hours as needed for Nausea and Vomiting (N/V). [facility] ibuprofen 600 mg tablet 05-06 00:00: 00 02-20 00:00 :00 No [id number] 600mg Take 1 tablet by mouth every 6 (six) hours as needed for Pain (scale 4-6). [facility] molnupiravi r 200 mg capsule 05-06 00:00: 00 05-12 04:59 :00 No [id number] 800mg Take 4 capsules by mouth every 12 (twelve) hours for 5 days. [facility] magnesium sulfate in water 2 gram/50 mL (4 %) infusion 2 g 05-01 13:45: 00 05-01 14:06 :00 No 2g 2 g, IV Piggyback, Administer over 60 Minutes, ONCE, 1 dose, On Fri05/01/22 at 0845, Routine [facility] diphenhydrA MINE (BENADRYL) injection 50 mg 05-01 12:45: 00 05-01 12:43 :00 No 50mg 50 mg, Slow IV Push, ONCE, 1 dose, On Fri05/01/22 at 0745, STAT [facility] maalox:diph enhydrAMINE :lidocaine 2 % viscous 1:1:1 (FIRST-MOUT HWASH [facility]) oral suspension 15 mL 02-08 07:15: 00 02-08 06:14 :00 No 15mL 15 mL, Oral, ONCE, 1 dose, On Fri02/08/22 at 0215, [facility] sucralfate 1 gram tablet 02-08 00:00: 00 Yes [id number] 1g Take 1 tablet by mouth before meals and at bedtime. [facility] ondansetron 4 mg disintegrat ing tablet 02-08 00:00: 00 Yes [id number] 4mg Take 1 tablet by mouth every 4 (four) hours as needed for Nausea and Vomiting (N/V). [facility] pantoprazol e 40 mg EC tablet 02-08 00:00: 00 Yes [id number] 40mg Take 1 tablet by mouth daily. [facility] maalox:diph enhydrAMINE :lidocaine 2 % viscous 1:1:1 (FIRST-MOUT HWASH BLM) oral suspension 15 mL 2020-10 02:15: 00 10-15 01:17 :00 No 15mL 15 mL, Oral, ONCE, 1 dose, On Fri10/14/21 at 2015, Routine [facility] iopamidol (ISOVUE 370-500 mL) injection 120 mL 2020-10 01:45: 00 10-15 00:37 :00 No [id number] 120mL 120 mL, Intravenou s, ONCE, 1 dose, On Fri10/14/21 at 1945, Routine [facility] famotidine (PEPCID (PF)) injection 20 mg 2020-10 00:30: 00 10-15 00:26 :00 No 20mg 20 mg, Slow IV Push, ONCE, 1 dose, On Fri10/14/21 at 1830, Routine [facility] enalapril 20 mg tablet 05-15 17:24: 35 Yes 25mg Take 25 mg by mouth daily. [facility] levothyroxi ne 200 mcg tablet 05-15 17:24: 35 Yes 300ug Take 300 mcg by mouth every morning. [facility] enalapril 20 mg tablet 05-15 12:24: 35 Yes 25mg Take 25 mg by mouth daily. [facility] levothyroxi ne 200 mcg tablet 05-15 12:24: 35 Yes 300ug Take 300 mcg by mouth every morning. [facility] FENTanyl (ACTIQ) lollipop 600 mcg 05-08 19:45: 00 05-08 18:59 :00 No [id number] 600ug 600 mcg, Buccal, ONCE, 1 dose, Fri05/08/21 at 1445, Routine [facility] sulfamethox azole-trime thoprim (BACTRIM DS) 800-160 mg per tablet 05-08 00:00: 00 05-16 04:59 :00 No [id number] 1{tbl} Take 1 tablet by mouth 2 (two) times daily for 7 days. [facility] HYDROcodone -acetaminop hen (NORCO) 10-325 mg tablet 1 tablet 05-06 09:45: 00 05-06 08:44 :00 No 1{tbl} 1 tablet, Oral, ONCE, 1 dose, Entiat 05/06/21 at 0445, Routine [facility] sulfamethox azole-trime thoprim 800-160 mg per tablet 05-06 00:00: 00 Yes [id number] 1{tbl} Take 1 tablet by mouth every 12 (twelve) hours. [facility] HYDROcodone -acetaminop hen 5-325 mg tablet 05-06 00:00: 00 05-14 04:59 :00 No [id number] 1{tbl} Take 1 tablet by mouth every 4 (four) hours as needed for Pain (scale 7-10) for up to 7 days. Indication s: acute pain [facility] ketorolac (TORADOL) injection 30 mg 03-15 06:30: 00 03-15 05:44 :00 No 30mg 30 mg, Slow IV Push, ONCE, 1 dose, [facility] 03/15/21 at 0130, Routine
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 [facility] levothyroxi ne 200 mcg tablet 03-15 06:19: 47 Yes 300ug Take 300 mcg by mouth every morning. [facility] iopamidol (ISOVUE 370-500 mL) injection 120 mL 03-15 06:00: 00 03-15 06:00 :00 No [id number] 120mL 120 mL, Intravenou s, ONCE, 1 dose, [facility] 03/15/21 at 0100, Routine [facility] KCL (KLOR-CON M20) tablet 40 mEq 03-15 05:45: 00 03-15 05:01 :00 No 40meq 40 mEq, Oral, ONCE, 1 dose, [facility] 03/15/21 at 0045, Routine [facility] ondansetron (ZOFRAN (PF)) injection 4 mg 03-15 05:30: 00 03-15 04:32 :00 No 4mg 4 mg, Slow IV Push, ONCE, 1 dose, Ale 03/15/21 at 0030, FAWN [facility] FENTanyl PF (SUBLIMAZE (PF)) injection 75 mcg 03-15 05:30: 00 03-15 04:32 :00 No 75ug 75 mcg, Slow IV Push, ONCE, 1 dose, Ale 03/15/21 at 0030, Routine [facility] traMADoL (ULTRAM) 50 mg tablet 03-15 00:00: 00 Yes [id number] 50mg Take 1 tablet by mouth every 6 (six) hours as needed for Pain (scale 4-6) or Pain (scale 7-10). Indication s: acute pain [facility] methocarbam oL 500 mg tablet 03-15 00:00: 00 Yes [id number] 500mg Take 1 tablet by mouth every 6 (six) hours as needed (MUSCLE SPASM). [facility] ibuprofen 800 mg tablet 03-15 00:00: 00 02-20 00:00 :00 No [id number] 800mg Take 1 tablet by mouth every 8 (eight) hours as needed for Pain (scale 4-6). [facility] pantoprazol e (PROTONIX) 80 mg in NaCl 0.9% (NS) 20 mL syringe 2019-10 00:15: 00 09-08 23:17 :00 No 80mg 80 mg, IV Push, ONCE, 1 dose, 09/08/20 at 1815, 20 mL [facility] maalox:diph enhydrAMINE :lidocaine2 %viscous 1:1:1: suspension (COMPOUNDED ) 2019-10 00:15: 00 09-08 23:16 :00 No 15mL 15 mL, Oral, ONCE, 1 dose, Fri09/08/20 at 1815, Routine [facility] sucralfate 1 gram tablet 2019-10 00:00: 00 Yes [id number] 1g Take 1 tablet by mouth before meals and at bedtime. [facility] dicyclomine (BENTYL) 10 mg capsule 2019-10 00:00: 00 Yes [id number] 10mg Take 1 capsule by mouth every 8 (eight) hours as needed for Abdominal pain. [facility] ondansetron 4 mg disintegrat ing tablet 2019-10 00:00: 00 Yes [id number] 4mg Take 1 tablet by mouth every 8 (eight) hours as needed for Nausea and Vomiting (N/V). [facility] omeprazole 20 mg capsule 2019-10 00:00: 00 10-09 05:59 :00 No [id number] 20mg Take 1 capsule by mouth daily for 30 days. [facility] ketorolac (TORADOL) injection 30 mg 2019-10 20:15: 00 09-06 19:14 :00 No 30mg 30 mg, Slow IV Push, ONCE, 1 dose, Fri09/06/20 at 1415, FAWN
[facility] member approving Restricted medication : Nidia SOLANO [facility] FENTanyl PF (SUBLIMAZE (PF)) injection 50 mcg 2019-10 18:45: 00 09-06 17:38 :00 No 50ug 50 mcg, Slow IV Push, ONCE, 1 dose, Fri09/06/20 at 1245, STAT [facility] iohexol (OMNIPAQUE 350 BULK-500 mL) injection 150 mL 2019-10 18:15: 00 09-06 17:00 :00 No 150mL 150 mL, Intravenou s, ONCE, 1 dose, Fri09/06/20 at 1215, Routine [facility] ondansetron (ZOFRAN (PF)) injection 4 mg 2019-10 17:30: 00 09-06 16:33 :00 No 4mg 4 mg, Slow IV Push, ONCE, 1 dose, Fri09/06/20 at 1130, FAWN [facility] morpHINE injection 4 mg 2019-10 17:30: 00 09-06 16:33 :00 No 4mg 4 mg, Slow IV Push, ONCE, 1 dose, Fri09/06/20 at 1130, STAT [facility] ibuprofen 600 mg tablet 2019-10 00:00: 00 03-14 00:00 :00 No [id number] 600mg Take 1 tablet by mouth every 6 (six) hours as needed for Pain (scale 4-6). [facility] Polyethylen e Glycol 3350 (MIRALAX) powder 17 g 2019-10 13:00: 00 08-30 11:55 :00 No 17g 17 g, Oral, ONCE, 1 dose, Fri08/30/20 at 0700, Routine [facility] aspirin 81 mg chewable tablet 2019-10 00:00: 00 09-30 05:59 :00 No [id number] 81mg Take 1 tablet by mouth daily for 30 days. [facility] levothyroxi ne 125 mcg tablet 2019-10 23:22: 41 08-29 00:00 :00 No 300ug Take 300 mcg by mouth every morning. [facility] lisinopriL 30 mg tablet 2019-10 23:22: 41 08-29 00:00 :00 No 25mg Take 25 mg by mouth daily. [facility] ondansetron (ZOFRAN (PF)) injection 4 mg 2019-10 23:15: 07 08-31 23:14 :07 No 4mg 4 mg, Slow IV Push, Q6HPRN, Starting Fri08/29/20 at 1715, Until Fri08/31/20 at 1714, Routine, Nausea and Vomiting (N/V) [facility] morpHINE injection 2 mg 2019-10 22:49: 42 08-30 22:48 :42 No 2mg 2 mg, Slow IV Push, Q4HPRN, Starting Fri08/29/20 at 1649, Until Fri08/30/20 at 1648, Routine, Pain (scale 7-10) [facility] ondansetron (ZOFRAN (PF)) injection 4 mg 2019-10 18:03: 34 08-29 22:50 :21 No 4mg 4 mg, Slow IV Push, Q6HPRN, Starting Fri08/29/20 at 1203, Until Fri08/29/20 at 1650, Routine, Nausea and Vomiting (N/V) [facility] ibuprofen (IBU) tablet 600 mg 2019-10 18:00: 00 Yes 600mg 600 mg, Oral, Q6H, First dose on Fri08/29/20 at 1200, Until Discontinu ed, Routine [facility] acetaminoph en (TYLENOL) tablet 500 mg 2019-10 18:00: 00 Yes 500mg 500 mg, Oral, Q6H, First dose on Fri08/29/20 at 1200, Until Discontinu ed, Routine [facility] lactated ringers IV infusion 1,000 mL 2019-10 17:00: 00 Yes 1000mL at 75 mL/hr, 1,000 mL, IV Infusion, CONTINUOUS , Starting Fri08/29/20 at 1100, Until Discontinu ed, Routine, PACU [facility] FENTanyl PF (SUBLIMAZE (PF)) injection 25 mcg 2019-10 16:57: 53 08-29 17:58 :11 No 25ug 25 mcg, Slow IV Push, Q5MIN PRN, 4 doses, Starting Fri08/29/20 at 1057, Until Fri08/29/20 at 1158, Routine, Pain (scale 4-6), PACU [facility] ondansetron (ZOFRAN (PF)) injection 4 mg 2019-10 16:57: 53 08-29 17:13 :00 No 4mg 4 mg, Slow IV Push, PRN, 1 dose, Starting Fri08/29/20 at 1057, Until Fri08/29/20 at 1113, Routine, Nausea and Vomiting (N/V), PACU [facility] traMADoL (ULTRAM) tablet 100 mg 2019-10 16:11: 10 08-29 22:51 :09 No 100mg 100 mg, Oral, Q6HPRN, Starting Fri08/29/20 at 1011, Until Fri08/29/20 at 1651, Routine, Pain (scale 7-10) [facility] traMADoL (ULTRAM) tablet 50 mg 2019-10 16:10: 52 Yes 50mg 50 mg, Oral, Q6HPRN, Starting Fri08/29/20 at 1010, Until Discontinu ed, Routine, Pain (scale 4-6) [facility] acetaminoph en ADULT (OFIRMEV) injection 1,000 mg 2019-10 00:15: 00 08-29 16:11 :33 No 1000mg 1,000 mg, IV Infusion, Administer over 15 Minutes, Q6H ABX, 4 doses, First dose on Fri08/28/20 at 1815, Last dose on Fri08/29/20 at 1215, Routine
Indicatio n: Non-periop erative Patient
Approved by: Per Policy (NPO Status) [facility] metroNIDAZO LE in NaCl (iso-os) (FLAGYL I.V.) RTU IV infusion 500 mg 2019-10 00:15: 00 08-29 16:11 :42 No 500mg 500 mg, IV Infusion, Q8H ABX, First dose on Fri08/28/20 at 1815, Until Discontinu ed, 100 mL
Reas on for Anti-Infec tive: Empiric Therapy for Suspected Infection< br>Empiric Therapy Site: Abdominal< br>Duratio n of therapy: 7 days [facility] levoFLOXaci n in D5W (LEVAQUIN) 750 mg/150 mL Piggyback 750 mg 2019-10 00:15: 00 08-29 16:11 :42 No 750mg 750 mg, IV Piggyback, Administer over 90 Minutes, Q24H ABX, First dose on Fri08/28/20 at 1815, Until Discontinu ed, FAWN
Re ason for Anti-Infec tive: Empiric Therapy for Suspected Infection< br>Empiric Therapy Site: Abdominal< br>Duratio n of therapy: 72 hours [facility] levothyroxi ne 125 mcg tablet 2019-10 00:00: 00 09-29 05:59 :00 No [id number] 312.5ug Take 2.5 tablets by mouth every morning for 30 days. [facility] lisinopriL 30 mg tablet 2019-10 00:00: 00 09-29 05:59 :00 No [id number] 30mg Take 1 tablet by mouth daily for 30 days. [facility] pantoprazol e (PROTONIX) 40 mg EC tablet 2019-10 00:00: 00 09-29 05:59 :00 No [id number] 40mg Take 1 tablet by mouth daily for 30 days. [facility] ibuprofen 800 mg tablet 2019-10 00:00: 00 09-04 05:59 :00 No [id number] 800mg Take 1 tablet by mouth every 8 (eight) hours as needed for Pain (scale 4-6) for up to 5 days. [facility] sulfur hexafluorid e microsphr (LUMASON) injection 5 mL 2019-10 21:30: 00 08-28 16:58 :00 No 5mL 5 mL, Intravenou s, ONCE, 1 dose, Fri08/28/20 at 1530, Routine
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 Restricted medication : DARIAN DAVENPORT [facility] morpHINE injection 4 mg 2019-10 20:09: 08 08-29 16:11 :42 No 4mg 4 mg, Slow IV Push, Q4HPRN, Starting Fri08/28/20 at 1409, Until Tu08/29/20 at 1011, Routine, Pain (scale 7-10) [facility] morpHINE injection 2 mg 2019-10 18:15: 00 08-28 17:20 :00 No 2mg 2 mg, Slow IV Push, ONCE, 1 dose, Fri08/28/20 at 1215, Routine [facility] levothyroxi ne (SYNTHROID) tablet 200 mcg 2019-10 12:00: 00 Yes 200ug 200 mcg, Oral, QAM-0600, First dose (after last modificati on) on Fri08/28/20 at 0600, Until Discontinu ed, Routine [facility] enoxaparin (LOVENOX) injection 40 mg 2019-10 23:00: 00 Yes 40mg 40 mg, Subcutaneo us, DAILY, First dose on 08/27/20 at 1700, Until Discontinu ed, Routine [facility] ketorolac (TORADOL) injection 30 mg 2019-10 15:45: 00 08-27 14:53 :00 No 30mg 30 mg, Slow IV Push, ONCE, 1 dose, 08/27/20 at 0945, Routine
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 lisinopriL (PRINIVIL,Z ESTRIL) tablet 20 mg 2019-10 15:00: 00 Yes 20mg 20 mg, Oral, DAILY, First dose on 08/27/20 at 0900, Until Discontinu ed, Routine [facility] pantoprazol e (PROTONIX) EC tablet 40 mg 2019-10 15:00: 00 Yes 40mg 40 mg, Oral, DAILY, First dose on 08/27/20 at 0900, Until Discontinu ed, Routine [facility] aspirin chewable tablet 81 mg 2019-10 15:00: 00 Yes 81mg 81 mg, Oral, DAILY, First dose on 08/27/20 at 0900, Until Discontinu ed, [facility] 300 mcg 2019-10 12:00: 00 08-27 14:38 :59 No 300ug 300 mcg, Oral, QAM-0600, First dose on 08/27/20 at 0600, Until Discontinu ed, Routine [facility] nicotine (NICODERM) 21 mg/24 hr patch 1 Patch 2019-10 08:30: 00 Yes 1{patch } 1 Patch, Topical, Administer over 24 Hours, Q24H, First dose on 08/27/20 at 0230, Until Discontinu ed, Routine [facility] acetaminoph en (TYLENOL) tablet 975 mg 2019-10 08:15: 00 08-27 07:56 :00 No 975mg 975 mg, Oral, ONCE, 1 dose, [facility] 08/27/20 at 0215, FAWN [facility] iohexol (OMNIPAQUE 350 BULK-100 mL) injection 120 mL 2019-10 07:45: 00 08-27 07:34 :00 No 120mL 120 mL, Intravenou s, ONCE, 1 dose, [facility] 08/27/20 at 0145, Routine [facility] traMADoL (ULTRAM) tablet 50 mg 2019-10 07:16: 43 08-29 07:15 :43 No 50mg 50 mg, Oral, Q8HPRN, Starting [facility] 08/27/20 at 0116, Until Tu08/29/20 at 0115, Routine, Pain (scale 4-6) [facility] acetaminoph en (TYLENOL) tablet 650 mg 2019-10 07:16: 41 08-28 23:11 :03 No 650mg 650 mg, Oral, Q6HPRN, Starting [facility] 08/27/20 at 0116, Until Fri08/28/20 at 1711, Routine, Pain (scale 1-3) [facility] morpHINE injection 2 mg 2019-10 07:14: 54 08-28 20:09 :18 No 2mg 2 mg, Slow IV Push, Q4HPRN, Starting [facility] 08/27/20 at 0114, Until Fri08/28/20 at 1409, Routine, Pain (scale 7-10) [facility] nitroglycer in (NITROSTAT) sublingual tablet 0.4 mg 2019-10 07:03: 30 Yes .4mg 0.4 mg, Sublingual , Q5MIN PRN, Starting [facility] 08/27/20 at 0103, Until Discontinu ed, Routine, Chest pain [facility] alum-mag hydroxide-s imeth (MAALOX PLUS / MAG-AL PLUS) 200-200-20 mg/5 mL suspension 30 mL 2019-10 07:02: 48 Yes 30mL 30 mL, Oral, Q6HPRN, Starting 08/27/20 at 0102, Until Discontinu ed, Routine, Indigestio n [facility] aspirin tablet 325 mg 2019-10 07:00: 00 08-27 06:16 :00 No 325mg 325 mg, Oral, ONCE, 1 dose, 08/27/20 at 0100, STAT [facility] nitroglycer in (NITROSTAT) sublingual tablet 0.4 mg 2019-10 07:00: 00 08-27 06:16 :00 No .4mg 0.4 mg, Sublingual , ONCE, 1 dose, 08/27/20 at 0100, [facility] aspirin chewable tablet 324 mg 07-10 14:00: 00 Yes 324mg 324 mg, Oral, DAILY, First dose on Fri07/10/20 at 0900, Until Discontinu ed, Routine [facility] iohexol (OMNIPAQUE 350 BULK-100 mL) injection 120 mL 07-10 05:15: 00 07-10 05:08 :00 No 120mL 120 mL, Intravenou s, ONCE, 1 dose, [facility] 07/10/20 at 0015, Routine [facility] codeine-gua ifenesin (ROBITUSSIN AC) 10-100 mg/5 mL solution 10 mL 07-10 04:30: 00 07-10 03:23 :00 No 10mL 10 mL, Oral, ONCE, 1 dose, [facility] 07[facility]09[facility]20 [facility] 2330, [facility]ATIVAN[facility] 1 mg 07-10 03:45: 00 07-10 03:14 :00 No 1mg 1 mg, Slow IV Push, ONCE, 1 dose, [facility] 07/09/20 at 2245, STAT [facility] morpHINE injection 4 mg 07-10 03:30: 00 07-10 03:16 :00 No 4mg 4 mg, Slow IV Push, ONCE, 1 dose, [facility] 07/09/20 at 2230, STAT [facility] pantoprazol e (PROTONIX) 40 mg in NaCl 0.9% (NS) 100 mL MINI-BAG 07-10 02:30: 00 07-10 01:48 :00 No 40mg 40 mg, IV Piggyback, ONCE, 1 dose, 07/09/20 at 2130, 100 mL [facility] ondansetron (ZOFRAN (PF)) injection 4 mg 07-10 02:00: 00 07-10 01:03 :00 No 4mg 4 mg, Slow IV Push, ONCE, 1 dose, 07/09/20 at 2100, FAWN [facility] morpHINE injection 4 mg 07-10 02:00: 00 07-10 01:03 :00 No 4mg 4 mg, Slow IV Push, ONCE, 1 dose, 07/09/20 at 2100, STAT [facility] nitroglycer in (NITROSTAT) sublingual tablet 0.4 mg 07-10 02:00: 00 07-10 01:02 :00 No .4mg 0.4 mg, Sublingual , ONCE, 1 dose, 07/09/20 at 2100, FAWN [facility] pantoprazol e (PROTONIX) 40 mg EC tablet 07-10 00:00: 00 08-29 00:00 :00 No [id number] 40mg Take 1 tablet by mouth daily. [facility] dicyclomine 20 mg tablet 07-10 00:00: 08-29 00:00 :00 No [id number] 20mg Take 1 tablet by mouth every 6 (six) hours as needed for Abdominal pain. [facility] benzonatate 200 mg capsule 07-10 00:00: 08-29 00:00 :00 No [id number] 200mg Take 1 capsule by mouth 3 (three) times daily as needed for Cough. [facility] ibuprofen 800 mg tablet 2018-10 0 00:00: 08-29 00:00 :00 No [id number] 800mg Take 1 tablet by mouth every 8 (eight) hours as needed for Pain (scale 4-6). [facility] cyclobenzap rine 5 mg tablet 03-30 00:00: 00 08-29 00:00 :00 No [id number] 5mg Take 1 tablet by mouth 3 (three) times daily as needed for Muscle Spasms. [facility] LORazepam (ATIVAN) 0.5 mg tablet 06-14 00:00: 00 08-29 00:00 :00 No .5mg Take 1 tablet by mouth 2 (two) times daily as needed for Anxiety. [facility] levothyroxi ne 125 mcg tablet 05-11 10:32: 30 Yes 125ug Take 125 mcg by mouth every morning. [facility] Vital Signs Vital Name Observation Time Observation Value Comments S ource Systolic blood pressure 2024-02-04 18:48:00 142 mm[Hg] [facility] Diastolic blood pressure 2024-02-04 18:48:00 97 mm[Hg] [facility] Heart rate 2024-02-04 18:48:00 84 /min [facility] Respiratory rate 2024-02-04 18:48:00 16 /min [facility] Oxygen saturation in Arterial blood by Pulse oximetry 2024-02-04 18:48:00 97 /min [facility] Body temperature 2024-02-04 15:46:00 36.67 Nano [facility] Body height 2024-02-04 15:46:00 172.7 cm [facility] Body weight 2024-02-04 15:46:00 111.131 kg [facility] BMI 2024-02-04 15:46:00 37.25 kg/m2 [facility] Heart rate 2023-12-28 09:23:00 84 /min [facility] Respiratory rate 2023-12-28 09:23:00 16 /min [facility] Oxygen saturation in Arterial blood by Pulse oximetry 2023-12-28 09:23:00 96 /min [facility] Systolic blood pressure 2023-12-28 09:00:00 131 mm[Hg] [facility] Diastolic blood pressure 2023-12-28 09:00:00 81 mm[Hg] [facility] Body temperature 2023-12-28 08:13:00 37 Nano [facility] Body height 2023-12-28 08:13:00 172.7 cm [facility] Body weight 2023-12-28 08:13:00 110.632 kg [facility] BMI 2023-12-28 08:13:00 37.08 kg/m2 [facility] Systolic blood pressure 2023-11-06 08:00:00 117 mm[Hg] [facility] Diastolic blood pressure 2023-11-06 08:00:00 75 mm[Hg] [facility] Heart rate 2023-11-06 08:00:00 80 /min [facility] Body temperature 2023-11-06 08:00:00 37 Nano [facility] Respiratory rate 2023-11-06 08:00:00 18 /min [facility] Oxygen saturation in Arterial blood by Pulse oximetry 2023-11-06 08:00:00 97 /min [facility] Body height 2023-11-06 05:50:00 172.7 cm [facility] Body weight 2023-11-06 05:50:00 113.309 kg [facility] BMI 2023-11-06 05:50:00 37.98 kg/m2 [facility] Systolic blood pressure 2023-11-01 10:00:00 142 mm[Hg] [facility] Diastolic blood pressure 2023-11-01 10:00:00 81 mm[Hg] [facility] Heart rate 2023-11-01 10:00:00 79 /[facility] Body temperature 2023-11-01 10:00:00 37.17 Nano [facility] Respiratory rate 2023-11-01 10:00:00 16 /min [facility] Oxygen saturation in Arterial blood by Pulse oximetry 2023-11-01 10:00:00 94 /min [facility] Body height 2023-11-01 05:37:00 172.7 cm [facility] Body weight 2023-11-01 05:37:00 111.131 kg [facility] BMI 2023-11-01 05:37:00 37.25 kg/m2 [facility] Systolic blood pressure 2023-10-23 08:00:00 140 mm[Hg] [facility] Diastolic blood pressure 2023-10-23 08:00:00 88 mm[Hg] [facility] Heart rate 2023-10-23 08:00:00 89 /min [facility] Oxygen saturation in Arterial blood by Pulse oximetry 2023-10-23 08:00:00 94 /min [facility] Respiratory rate 2023-10-23 05:53:00 16 /min [facility] Body temperature 2023-10-23 05:45:00 36.72 Nano [facility] Body height 2023-10-23 05:45:00 172.7 cm [facility] Body weight 2023-10-23 05:45:00 113.399 kg [facility] BMI 2023-10-23 05:45:00 38.01 kg/m2 [facility] Systolic blood pressure 2023-09-26 08:00:00 159 mm[Hg] [facility] Diastolic blood pressure 2023-09-26 08:00:00 80 mm[Hg] [facility] Heart rate 2023-09-26 08:00:00 75 /min [facility] Respiratory rate 2023-09-26 08:00:00 20 /min [facility] Oxygen saturation in Arterial blood by Pulse oximetry 2023-09-26 08:00:00 94 /min [facility] Body temperature 2023-09-26 05:02:00 36.72 Nano [facility] Systolic blood pressure 2023-08-24 08:14:00 140 mm[Hg] [facility] Diastolic blood pressure 2023-08-24 08:14:00 73 mm[Hg] [facility] Heart rate 2023-08-24 08:14:00 75 /min [facility] Body temperature 2023-08-24 08:14:00 36.67 Nano [facility] Respiratory rate 2023-08-24 08:14:00 18 /min [facility] Oxygen saturation in Arterial blood by Pulse oximetry 2023-08-24 08:14:00 96 /min [facility] Body height 2023-08-24 03:41:00 172.7 cm [facility] Body weight 2023-08-24 03:41:00 113.399 kg [facility] BMI 2023-08-24 03:41:00 38.01 kg/m2 [facility] Systolic blood pressure 2023-07-07 10:53:00 140 mm[Hg] [facility] Diastolic blood pressure 2023-07-07 10:53:00 83 mm[Hg] [facility] Heart rate 2023-07-07 10:53:00 75 /min [facility] Respiratory rate 2023-07-07 10:53:00 16 /min [facility] Oxygen saturation in Arterial blood by Pulse oximetry 2023-07-07 10:53:00 97 /min [facility] Body temperature 2023-07-07 08:57:00 36.44 Nano [facility] Body height 2023-07-07 08:57:00 172.7 cm [facility] Body weight 2023-07-07 08:57:00 113.399 kg [facility] BMI 2023-07-07 08:57:00 38.01 kg/m2 [facility] Systolic blood pressure 2023-05-26 03:30:00 140 mm[Hg] [facility] Diastolic blood pressure 2023-05-26 03:30:00 78 mm[Hg] [facility] Heart rate 2023-05-26 03:30:00 80 /min [facility] Respiratory rate 2023-05-26 03:30:00 23 /min [facility] Oxygen saturation in Arterial blood by Pulse oximetry 2023-05-26 03:30:00 94 /min [facility] Body temperature 2023-05-26 03:00:00 36.78 Nano [facility] Body weight 2023-05-25 22:19:00 121.564 kg [facility] BMI 2023-05-25 22:19:00 40.75 kg/m2 [facility] Systolic blood pressure 2023-02-21 01:51:00 123 mm[Hg] [facility] Diastolic blood pressure 2023-02-21 01:51:00 74 mm[Hg] [facility] Heart rate 2023-02-20 23:03:00 95 /min [facility] Body temperature 2023-02-20 23:03:00 38.28 Nano [facility] Respiratory rate 2023-02-20 23:03:00 18 /min [facility] Body height 2023-02-20 23:03:00 172.7 cm [facility] Body weight 2023-02-20 23:03:00 121.564 kg [facility] BMI 2023-02-20 23:03:00 40.75 kg/m2 [facility] Oxygen saturation in Arterial blood by Pulse oximetry 2023-02-20 23:03:00 97 /min [facility] Systolic blood pressure 2022-12-29 10:00:00 142 mm[Hg] [facility] Diastolic blood pressure 2022-12-29 10:00:00 78 mm[Hg] [facility] Heart rate 2022-12-29 10:00:00 71 /min [facility] Oxygen saturation in Arterial blood by Pulse oximetry 2022-12-29 09:57:00 96 /min [facility] Body temperature 2022-12-29 06:35:00 36.89 Nano [facility] Respiratory rate 2022-12-29 06:35:00 20 /min [facility] Body height 2022-12-29 06:35:00 172.7 cm [facility] Body weight 2022-12-29 06:35:00 121.745 kg [facility] BMI 2022-12-29 06:35:00 40.81 kg/m2 [facility] Systolic blood pressure 2022-11-21 08:14:00 162 mm[Hg] [facility] Diastolic blood pressure 2022-11-21 08:14:00 101 mm[Hg] [facility] Heart rate 2022-11-21 08:09:00 92 /min [facility] Body temperature 2022-11-21 08:09:00 37.11 Nano [facility] Respiratory rate 2022-11-21 08:09:00 16 /min [facility] Body height 2022-11-21 08:09:00 172.7 cm [facility] Body weight 2022-11-21 08:09:00 115.667 kg [facility] BMI 2022-11-21 08:09:00 38.77 kg/m2 [facility] Oxygen saturation in Arterial blood by Pulse oximetry 2022-11-21 08:09:00 97 /min [facility] Systolic blood pressure 2022-10-29 07:34:00 167 mm[Hg] [facility] Diastolic blood pressure 2022-10-29 07:34:00 97 mm[Hg] [facility] Heart rate 2022-10-29 07:34:00 93 /min [facility] Body temperature 2022-10-29 07:34:00 37.39 Nano [facility] Respiratory rate 2022-10-29 07:34:00 20 /min [facility] Body height 2022-10-29 07:34:00 172.7 cm [facility] Body weight 2022-10-29 07:34:00 113.399 kg [facility] BMI 2022-10-29 07:34:00 38.01 kg/m2 [facility] Oxygen saturation in Arterial blood by Pulse oximetry 2022-10-29 07:34:00 97 /min [facility] Systolic blood pressure 2022-06-02 05:00:00 165 mm[Hg] [facility] Diastolic blood pressure 2022-06-02 05:00:00 119 mm[Hg] [facility] Heart rate 2022-06-02 05:00:00 74 /min [facility] Respiratory rate 2022-06-02 05:00:00 23 /min [facility] Oxygen saturation in Arterial blood by Pulse oximetry 2022-06-02 05:00:00 95 /min [facility] Body temperature 2022-06-02 04:41:00 36.67 Nano [facility] Systolic blood pressure 2022-05-28 18:36:21 147 mm[Hg] [facility] Diastolic blood pressure 2022-05-28 18:36:21 97 mm[Hg] [facility] Heart rate 2022-05-28 18:36:21 62 /min [facility] Respiratory rate 2022-05-28 18:36:21 18 /min [facility] Oxygen saturation in Arterial blood by Pulse oximetry 2022-05-28 18:36:21 96 /min [facility] Body temperature 2022-05-28 15:06:00 37.22 Nano [facility] Body height 2022-05-28 15:06:00 172.7 cm [facility] Body weight 2022-05-28 15:06:00 124.739 kg [facility] BMI 2022-05-28 15:06:00 41.81 kg/m2 [facility] Systolic blood pressure 2022-05-06 06:42:00 137 mm[Hg] [facility] Diastolic blood pressure 2022-05-06 06:42:00 90 mm[Hg] [facility] Heart rate 2022-05-06 06:42:00 81 /min [facility] Respiratory rate 2022-05-06 06:42:00 16 /min [facility] Oxygen saturation in Arterial blood by Pulse oximetry 2022-05-06 06:42:00 94 /min [facility] Body temperature 2022-05-06 03:30:00 36.78 Nano [facility] Body height 2022-05-06 03:30:00 172.7 cm [facility] Body weight 2022-05-06 03:30:00 117.935 kg [facility] BMI 2022-05-06 03:30:00 39.53 kg/m2 [facility] Systolic blood pressure 2022-05-01 13:30:00 147 mm[Hg] [facility] Diastolic blood pressure 2022-05-01 13:30:00 91 mm[Hg] [facility] Heart rate 2022-05-01 13:30:00 73 /min [facility] Respiratory rate 2022-05-01 13:30:00 17 /min [facility] Oxygen saturation in Arterial blood by Pulse oximetry 2022-05-01 13:30:00 95 /min [facility] Body temperature 2022-05-01 12:28:00 36.78 Nano [facility] Body weight 2022-05-01 12:28:00 121.564 kg [facility] BMI 2022-05-01 12:28:00 40.75 kg/m2 [facility] Systolic blood pressure 2022-02-08 07:00:00 133 mm[Hg] [facility] Diastolic blood pressure 2022-02-08 07:00:00 94 mm[Hg] [facility] Heart rate 2022-02-08 07:00:00 77 /min [facility] Respiratory rate 2022-02-08 07:00:00 21 /min [facility] Oxygen saturation in Arterial blood by Pulse oximetry 2022-02-08 07:00:00 95 /min [facility] Body temperature 2022-02-08 06:04:00 36.5 Nano [facility] Body height 2022-02-08 06:04:00 172.7 cm [facility] Body weight 2022-02-08 06:04:00 113.399 kg [facility] BMI 2022-02-08 06:04:00 38.01 kg/m2 [facility] Systolic blood pressure 2021-10-14 22:36:00 152 mm[Hg] [facility] Diastolic blood pressure 2021-10-14 22:36:00 87 mm[Hg] [facility] Heart rate 2021-10-14 22:36:00 95 /min [facility] Body temperature 2021-10-14 22:36:00 36.94 Nano [facility] Respiratory rate 2021-10-14 22:36:00 18 /min [facility] Body weight 2021-10-14 22:36:00 122.29 kg [facility] BMI 2021-10-14 22:36:00 40.99 kg/m2 [facility] Oxygen saturation in Arterial blood by Pulse oximetry 2021-10-14 22:36:00 97 /min [facility] Systolic blood pressure 2021-05-15 17:15:00 148 mm[Hg] [facility] Diastolic blood pressure 2021-05-15 17:15:00 84 mm[Hg] [facility] Heart rate 2021-05-15 17:15:00 99 /min [facility] Body temperature 2021-05-15 17:15:00 36.5 Nano [facility] Respiratory rate 2021-05-15 17:15:00 20 /min [facility] Body weight 2021-05-15 17:15:00 117.073 kg [facility] BMI 2021-05-15 17:15:00 39.24 kg/m2 [facility] Oxygen saturation in Arterial blood by Pulse oximetry 2021-05-15 17:15:00 97 /min [facility] Systolic blood pressure 2021-05-08 18:10:00 156 mm[Hg] [facility] Diastolic blood pressure 2021-05-08 18:10:00 95 mm[Hg] [facility] Heart rate 2021-05-08 18:10:00 99 /min [facility] Body temperature 2021-05-08 18:10:00 36.06 Nano [facility] Respiratory rate 2021-05-08 18:10:00 18 /min [facility] Body weight 2021-05-08 18:10:00 116.756 kg [facility] BMI 2021-05-08 18:10:00 39.14 kg/m2 [facility] Oxygen saturation in Arterial blood by Pulse oximetry 2021-05-08 18:10:00 96 /min [facility] Systolic blood pressure 2021-05-06 09:26:00 145 mm[Hg] [facility] Diastolic blood pressure 2021-05-06 09:26:00 93 mm[Hg] [facility] Heart rate 2021-05-06 09:26:00 79 /min [facility] Respiratory rate 2021-05-06 09:26:00 20 /min [facility] Oxygen saturation in Arterial blood by Pulse oximetry 2021-05-06 09:26:00 97 /min [facility] Body temperature 2021-05-06 07:56:00 37.11 Nano [facility] Body height 2021-05-06 07:56:00 172.7 cm [facility] Body weight 2021-05-06 07:56:00 118.434 kg [facility] BMI 2021-05-06 07:56:00 39.70 kg/m2 [facility] Systolic blood pressure 2021-03-15 06:19:00 127 mm[Hg] [facility] Diastolic blood pressure 2021-03-15 06:19:00 79 mm[Hg] [facility] Heart rate 2021-03-15 06:19:00 78 /[facility] Respiratory rate 2021-03-15 06:19:00 23 /min [facility] Oxygen saturation in Arterial blood by Pulse oximetry 2021-03-15 06:19:00 96 /min [facility] Body temperature 2021-03-15 03:05:45 37 Nano [facility] Body weight 2021-03-15 02:46:00 114.76 kg [facility] BMI 2021-03-15 02:46:00 38.47 kg/m2 [facility] Systolic blood pressure 2021-03-15 06:19:00 127 mm[Hg] [facility] Diastolic blood pressure 2021-03-15 06:19:00 79 mm[Hg] [facility] Heart rate 2021-03-15 06:19:00 78 /min [facility] Respiratory rate 2021-03-15 06:19:00 23 /min [facility] Oxygen saturation in Arterial blood by Pulse oximetry 2021-03-15 06:19:00 96 /min [facility] Body temperature 2021-03-15 03:05:45 37 Nano [facility] Body weight 2021-03-15 02:46:00 114.76 kg [facility] BMI 2021-03-15 02:46:00 38.47 kg/m2 [facility] Systolic blood pressure 2020-09-09 00:10:00 124 mm[Hg] [facility] Diastolic blood pressure 2020-09-09 00:10:00 77 mm[Hg] [facility] Heart rate 2020-09-09 00:10:00 83 /min [facility] Respiratory rate 2020-09-09 00:10:00 16 /min [facility] Oxygen saturation in Arterial blood by Pulse oximetry 2020-09-09 00:10:00 97 /min [facility] Body temperature 2020-09-08 23:14:00 37.39 Nano [facility] Body weight 2020-09-08 22:49:00 107.956 kg [facility] BMI 2020-09-08 22:49:00 36.19 kg/m2 [facility] Systolic blood pressure 2020-09-09 00:10:00 124 mm[Hg] [facility] Diastolic blood pressure 2020-09-09 00:10:00 77 mm[Hg] [facility] Heart rate 2020-09-09 00:10:00 83 /min [facility] Respiratory rate 2020-09-09 00:10:00 16 /min [facility] Oxygen saturation in Arterial blood by Pulse oximetry 2020-09-09 00:10:00 97 /min [facility] Body temperature 2020-09-08 23:14:00 37.39 Nano [facility] Body weight 2020-09-08 22:49:00 107.956 kg [facility] BMI 2020-09-08 22:49:00 36.19 kg/m2 [facility] Systolic blood pressure 2020-09-06 19:30:00 115 mm[Hg] [facility] Diastolic blood pressure 2020-09-06 19:30:00 65 mm[Hg] [facility] Heart rate 2020-09-06 19:30:00 67 /min [facility] Body temperature 2020-09-06 19:30:00 36.83 Nano [facility] Respiratory rate 2020-09-06 19:30:00 19 /min [facility] Oxygen saturation in Arterial blood by Pulse oximetry 2020-09-06 19:30:00 99 /min [facility] Body weight 2020-09-06 15:41:00 107.956 kg [facility] BMI 2020-09-06 15:41:00 36.19 kg/m2 [facility] Systolic blood pressure 2020-09-06 19:30:00 115 mm[Hg] [facility] Diastolic blood pressure 2020-09-06 19:30:00 65 mm[Hg] [facility] Heart rate 2020-09-06 19:30:00 67 /min [facility] Body temperature 2020-09-06 19:30:00 36.83 Nano [facility] Respiratory rate 2020-09-06 19:30:00 19 /min [facility] Oxygen saturation in Arterial blood by Pulse oximetry 2020-09-06 19:30:00 99 /min [facility] Body weight 2020-09-06 15:41:00 107.956 kg [facility] BMI 2020-09-06 15:41:00 36.19 kg/m2 [facility] Systolic blood pressure 2020-08-30 13:11:00 136 mm[Hg] [facility] Diastolic blood pressure 2020-08-30 13:11:00 77 mm[Hg] [facility] Heart rate 2020-08-30 13:11:00 74 /min [facility] Body temperature 2020-08-30 13:11:00 36.5 Nano [facility] Respiratory rate 2020-08-30 13:11:00 18 /min [facility] Oxygen saturation in Arterial blood by Pulse oximetry 2020-08-30 13:11:00 96 /min [facility] Body weight 2020-08-30 09:00:00 107.956 kg [facility] BMI 2020-08-30 09:00:00 36.19 kg/m2 [facility] Body height 2020-08-27 07:49:00 172.7 cm [facility] Systolic blood pressure 2020-08-30 13:11:00 136 mm[Hg] [facility] Diastolic blood pressure 2020-08-30 13:11:00 77 mm[Hg] [facility] Heart rate 2020-08-30 13:11:00 74 /min [facility] Body temperature 2020-08-30 13:11:00 36.5 Nano [facility] Respiratory rate 2020-08-30 13:11:00 18 /min [facility] Oxygen saturation in Arterial blood by Pulse oximetry 2020-08-30 13:11:00 96 /min [facility] Body weight 2020-08-30 09:00:00 107.956 kg [facility] BMI 2020-08-30 09:00:00 36.19 kg/m2 [facility] Body height 2020-08-27 07:49:00 172.7 cm [facility] Systolic blood pressure 2020-07-10 05:30:00 123 mm[Hg] [facility] Diastolic blood pressure 2020-07-10 05:30:00 77 mm[Hg] [facility] Heart rate 2020-07-10 05:30:00 75 /min [facility] Respiratory rate 2020-07-10 05:30:00 19 /min [facility] Oxygen saturation in Arterial blood by Pulse oximetry 2020-07-10 05:30:00 97 /min [facility] Body temperature 2020-07-10 00:48:00 37.39 Nano [facility] Body height 2020-07-10 00:48:00 172.7 cm [facility] Body weight 2020-07-10 00:43:00 99.791 kg [facility] BMI 2020-07-10 00:43:00 33.45 kg/m2 [facility] Systolic blood pressure 2020-07-10 05:30:00 123 mm[Hg] [facility] Diastolic blood pressure 2020-07-10 05:30:00 77 mm[Hg] [facility] Heart rate 2020-07-10 05:30:00 75 /min [facility] Respiratory rate 2020-07-10 05:30:00 19 /min [facility] Oxygen saturation in Arterial blood by Pulse oximetry 2020-07-10 05:30:00 97 /min [facility] Body temperature 2020-07-10 00:48:00 37.39 Nano [facility] Body height 2020-07-10 00:48:00 172.7 cm [facility] Body weight 2020-07-10 00:43:00 99.791 kg [facility] BMI 2020-07-10 00:43:00 33.45 kg/m2 [facility] Procedures Procedure Date / Time Performed Performing Clinician Source URINALYSIS 2024-02-04 18:16:00 Babs Bustamante [facility] CT ABDOMEN PELVIS W CONTRAST 2024-02-04 16:52:00 Babs Bustamante [facility] LIPASE 2024-02-04 16:00:00 [facility] COMP. METABOLIC PANEL ([id number]) 2024-02-04 16:00:00 Babs Bustamante [facility] CBC WITH DIFF 2024-02-04 16:00:00 Babs Bustamante [facility] CONSENT/REFUSAL FOR DIAGNOSIS AND TREATMENT 2023-12-28 08:06:27 Doctor Unassigned, [place] [facility] EKG-12 LEAD 2023-11-06 08:26:13 Nidia Solano [facility] LIPASE 2023-11-06 06:15:00 Nidia Solano [facility] MAGNESIUM 2023-11-06 06:15:00 [facility] COMP. METABOLIC PANEL ([id number]) 2023-11-06 06:15:00 Nidia Solano [facility] CBC WITH DIFF 2023-11-06 06:15:00 Nidia Solano [facility] URINALYSIS 2023-11-06 06:15:00 Nidia Solano [facility] CONSENT/REFUSAL FOR DIAGNOSIS AND TREATMENT 2023-11-06 05:40:44 Doctor Unassigned, [place] [facility] CT ABDOMEN PELVIS W CONTRAST 2023-11-01 08:32:40 Jose Francisco Walters [facility] LIPASE 2023-11-01 05:45:00 Jose Francisco Walters [facility] COMP. METABOLIC PANEL ([id number]) 2023-11-01 05:45:00 Jose Francisco Walters [facility] CBC WITH DIFF 2023-11-01 05:45:00 Jose Francisco Walters [facility] URINALYSIS 2023-11-01 05:45:00 Jose Francisco Walters [facility] POCT GLUCOSE (AUTOMATED) 2023-11-01 05:41:00 Lena Walters [facility] CONSENT/REFUSAL FOR DIAGNOSIS AND TREATMENT 2023-11-01 05:29:45 Doctor Unassigned, [place] [facility] CT ABDOMEN PELVIS W CONTRAST 2023-10-23 07:06:44 Chapito Contreras [facility] LIPASE 2023-10-23 05:50:00 Chapito Contreras [facility] COMP. METABOLIC PANEL ([id number]) 2023-10-23 05:50:00 Chapito Contreras [facility] CBC WITH DIFF 2023-10-23 05:50:00 Chapito Contreras [facility] URINALYSIS 2023-10-23 05:50:00 Chapito Contreras [facility] CONSENT/REFUSAL FOR DIAGNOSIS AND TREATMENT 2023-10-23 05:34:08 Doctor Unassigned, [place] [facility] URINALYSIS 2023-09-26 06:12:00 Jose, [facility] LIPASE 2023-09-26 05:12:00 Jose [facility] HEPATIC FUNCTION PANEL ([id number]) (ALB,T.PRO,BILI T,BU/BC,ALT,AST,ALK PHOS) 2023-09-26 05:12:00 Jose [facility] BASIC METABOLIC PANEL (NA, K, CL, CO2, GLUCOSE, BUN, CREATININE, CA) 2023-09-26 05:12:00 Jose [facility] CBC WITH DIFF 2023-09-26 05:12:00 [facility] NOTICE OF PRIVACY PRACTICES 2023-09-26 04:50:48 Doctor Unassigned, [place] [facility] CONSENT/REFUSAL FOR DIAGNOSIS AND TREATMENT 2023-09-26 04:50:08 Doctor Unassigned, [place] [facility] CT CHEST PULMONARY ANGIOGRAM 2023-08-24 08:02:29 Patrick Vergara [facility] XR CHEST 1 VW 2023-08-24 04:38:16 Patrick Vergara [facility] TROPONIN I 2023-08-24 04:29:00 Patrick Vergara [facility] COMP. METABOLIC PANEL ([id number]) 2023-08-24 04:29:00 Patrick Vergara [facility] CBC WITH DIFF 2023-08-24 04:29:00 [facility] CONSENT/REFUSAL FOR DIAGNOSIS AND TREATMENT 2023-08-24 03:41:11 Doctor Unassigned, [place] [facility] LIPASE 2023-07-07 09:22:00 Chapito Contreras [facility] TROPONIN I 2023-07-07 09:22:00 Chapito Contreras [facility] COMP. METABOLIC PANEL ([id number]) 2023-07-07 09:22:00 Chapito Contreras [facility] CBC WITH DIFF 2023-07-07 09:22:00 Chapito Contreras [facility] URINALYSIS 2023-07-07 09:22:00 Chapito Contreras [facility] CONSENT/REFUSAL FOR DIAGNOSIS AND TREATMENT 2023-07-07 08:49:51 Doctor Unassigned, [place] [facility] POCT GLUCOSE (AUTOMATED) 2023-05-26 02:17:00 Nidia Solano [facility] URINALYSIS 2023-05-26 01:24:00 Nidia Solano [facility] POCT GLUCOSE (AUTOMATED) 2023-05-26 01:22:00 Nidia Solano [facility] TROPONIN I 2023-05-26 00:54:00 Nidia Solano [facility] COVID-19 (ID NOW RAPID TESTING) 2023-05-26 00:54:00 Nidia Solano [facility] ASSIGNMENT OF BENEFITS 2023-05-26 00:29:59 Docto r Unassigned, [place] [facility] XR CHEST 1 VW 2023-05-25 22:41:21 Nidia Solano [facility] TROPONIN I 2023-05-25 22:33:00 Nidia Solano [facility] COMP. METABOLIC PANEL ([id number]) 2023-05-25 22:33:00 Nidia Solano [facility] CBC WITH DIFF 2023-05-25 22:33:00 Nidia Solano [facility] N-TERMINAL PRO-BNP 2023-05-25 22:33:00 Nidia Solano [facility] LIPASE 2023-05-25 22:33:00 Nidia Solano [facility] MAGNESIUM 2023-05-25 22:33:00 Nidia Solano [facility] CONSENT/REFUSAL FOR DIAGNOSIS AND TREATMENT 2023-05-25 22:07:05 Doctor Unassigned, [place] [facility] COVID-19 (ID NOW RAPID TESTING) 2023-02-20 23:30:00 Sofia Escobar [facility] CONSENT/REFUSAL FOR DIAGNOSIS AND TREATMENT 2023-02-20 22:54:00 Doctor Unassigned, [place] [facility] CT ABDOMEN PELVIS W CONTRAST 2022-12-29 08:28:18 Chapito Contreras [facility] LIPASE 2022-12-29 07:11:00 Chapito Contreras [facility] COMP. METABOLIC PANEL ([id number]) 2022-12-29 07:11:00 Chapito Contreras [facility] CBC WITH DIFF 2022-12-29 07:11:00 Chapito Contreras [facility] URINALYSIS 2022-12-29 07:11:[facility]AT[facility] 2022-12-29 06:24:27 Doctor Unassigned, [place] [facility] CONSENT/REFUSAL FOR DIAGNOSIS AND TREATMENT 2022-11-21 08:05:19 Doctor Unassigned, [place] [facility] RAPID STREP SCREEN FOR GROUP A 2022-10-29 07:36:00 Marie Morales [facility] CONSENT/REFUSAL FOR DIAGNOSIS AND TREATMENT 2022-10-29 07:23:03 Doctor Unassigned, [place] [facility] CONSENT/REFUSAL FOR DIAGNOSIS AND TREATMENT 2022-06-02 04:34:17 Doctor Unassigned, [place] [facility] FREE T4 2022-05-28 16:06:00 Saqib Clarke [facility] THYROID STIMULATING HORMONE 2022-05-28 16:06:00 Saqib Clarke [facility] COMP. METABOLIC PANEL ([id number]) 2022-05-28 16:06:00 Saqib Clarke [facility] CBC WITH DIFF 2022-05-28 16:06:00 Saqib Clarke [facility] FREE T3 2022-05-28 16:06:00 Saqib Clarke [facility] CONSENT/REFUSAL FOR DIAGNOSIS AND TREATMENT 2022-05-28 14:55:38 Doctor Unassigned, [place] [facility] CT ABDOMEN PELVIS W CONTRAST 2022-05-06 06:06:56 Nidia Solano [facility] LIPASE 2022-05-06 05:17:00 Nidia Solano [facility] MAGNESIUM 2022-05-06 05:17:00 [facility] TROPONIN I 2022-05-06 05:17:00 [facility] COMP. METABOLIC PANEL ([id number]) 2022-05-06 05:17:00 Nidia Solano [facility] CBC WITH DIFF 2022-05-06 05:17:00 Nidia Solano [facility] URINALYSIS 2022-05-06 05:17:00 Nidia Solano [facility] RAPID INFLUENZA A/B 2022-05-06 03:48:00 Nidia Solano [facility] COVID-19 (ID NOW RAPID TESTING) 2022-05-06 03:48:00 Nidia Solano Haily [facility] CONSENT/REFUSAL FOR DIAGNOSIS AND TREATMENT 2022-05-06 03:22:49 Doctor Unassigned, [place] [facility] COMP. METABOLIC PANEL ([id number]) 2022-05-01 12:42:00 Singer [facility] CBC WITH DIFF 2022-05-01 12:42:00 Singer [facility] CONSENT/REFUSAL FOR DIAGNOSIS AND TREATMENT 2022-05-01 12:23:44 Doctor Unassigned, [place] [facility] URINALYSIS 2022-02-08 06:27:00 Benjamin Ashford [facility] URINE DRUG (IMMUNOASSAY) - COMPREHENSIVE DRUG SCREEN W/O REFLEX 2022-02-08 06:27:00 Benjamin Ashford [facility] LIPASE 2022-02-08 06:15:00 Benjamin Ashford [facility] TROPONIN I 2022-02-08 06:15:00 [facility] COMP. METABOLIC PANEL ([id number]) 2022-02-08 06:15:00 Benjamin Ashford [facility] ETHANOL 2022-02-08 06:15:00 Bnejamin Ashford [facility] CBC WITH DIFF 2022-02-08 06:15:00 Benjamin Ashford [facility] PROTHROMBIN TIME / INR 2022-02-08 06:15:00 Jeremy Ashford [facility] ACTIVATED PARTIAL THRMPLAS ELAINE 2022-02-08 06:15:00 Benjamin Ashford [facility] N-TERMINAL PRO-BNP 2022-02-08 06:15:00 Benjamin Ashford [facility] NOTICE OF PRIVACY PRACTICES 2022-02-08 06:01:50 Doctor Unassigned, [place] [facility] CONSENT/REFUSAL FOR DIAGNOSIS AND TREATMENT 2022-02-08 05:59:20 Doctor Unassigned, [place] [facility] CT ABDOMEN PELVIS W CONTRAST 2021-10-15 00:40:39 Marie Morales [facility] LIPASE 2021-10-15 00:26:00 Marie Morales [facility] TROPONIN I 2021-10-15 00:26:00 Marie Morales [facility] COMP. METABOLIC PANEL ([id number]) 2021-10-15 00:26:00 Marie Morales [facility] CBC WITH DIFF 2021-10-15 00:26:00 Marie Morales [facility] NOTICE OF PRIVACY PRACTICES 2021-10-14 22:18:20 Doctor Unassigned, [place] [facility] CONSENT/REFUSAL FOR DIAGNOSIS AND TREATMENT 2021-10-14 22:17:56 Doctor Unassigned, [place] [facility] CT ABDOMEN PELVIS W CONTRAST 2021-03-15 04:54:23 Chapito Contreras [facility] COVID-19 (ID NOW RAPID TESTING) 2021-03-15 03:34:00 Chapito Contreras [facility] URINALYSIS 2021-03-15 03:16:00 Chapito Contreras [facility] COMP. METABOLIC PANEL ([id number]) 2021-03-15 03:11:00 Chapito Contreras [facility] CBC WITH DIFF 2021-03-15 03:11:00 Chapito Contreras [facility] CONSENT/REFUSAL FOR DIAGNOSIS AND TREATMENT 2021-03-15 02:38:38 Doctor Unassigned, [place] [facility] LIPASE 2020-09-08 23:14:00 Singer [facility] COMP. METABOLIC PANEL ([id number]) 2020-09-08 23:14:00 Singer [facility] CBC WITH DIFF 2020-09-08 23:14:00 [facility] CONSENT/REFUSAL FOR DIAGNOSIS AND TREATMENT 2020-09-08 22:38:49 Doctor Unassigned, [place] [facility] CT ABDOMEN PELVIS W CONTRAST 2020-09-06 17:05:33 Nidia Solano [facility] LACTIC ACID WHOLE BLOOD 2020-09-06 16:31:00 Nidia Solano Haily [facility] LIPASE 2020-09-06 16:11:00 Nidia Solano [facility] MAGNESIUM 2020-09-06 16:11:00 Nidia Solano [facility] COMP. METABOLIC PANEL ([id number]) 2020-09-06 16:11:00 Nidia Solano [facility] CBC WITH DIFF 2020-09-06 16:11:00 Nidia Solano [facility] NOTICE OF PRIVACY PRACTICES 2020-09-06 15:30:39 Doctor Unassigned, [place] [facility] CONSENT/REFUSAL FOR DIAGNOSIS AND TREATMENT 2020-09-06 15:30:28 Doctor Unassigned, [place] [facility] COMP. METABOLIC PANEL ([id number]) 2020-08-30 08:39:00 Babs Bustamante [facility] CBC WITH DIFF 2020-08-30 08:39:00 Irina Bustamanteherine [facility] US ABDOMEN COMPLETE 2020-08-28 18:11:06 Patrick No [facility] ECHO ROUTINE W/DOPPLER COLOR 2020-08-28 16:34:45 Gricelda No [facility] HEPATIC FUNCTION PANEL ([id number]) (ALB,T.PRO,BILI T,BU/BC,ALT,AST,ALK PHOS) 2020-08-28 10:16:00 Favio Chang [facility] BASIC METABOLIC PANEL (NA, K, CL, CO2, GLUCOSE, BUN, CREATININE, CA) 2020-08-28 10:16:00 Oneal [facility] TROPONIN I 2020-08-27 18:11:00 Oneal [facility] POCT GLUCOSE (AUTOMATED) 2020-08-27 18:02:00 Clau No [facility] POCT GLUCOSE (AUTOMATED) 2020-08-27 13:49:00 Clau No [facility] TROPONIN I 2020-08-27 11:35:00 Oneal [facility] CT ABDOMEN PELVIS W WO CONTRAST 2020-08-27 07:38:49 Oneal [facility] COVID-19 (ID NOW RAPID TESTING) 2020-08-27 06:21:00 Dejon [facility] URINALYSIS 2020-08-27 06:20:00 Benjamin Ashford [facility] ADC / LCC - DRUG SCREEN TRIAGE 2020-08-27 06:20:00 Dejon [facility] XR CHEST 1 VW 2020-08-27 06:05:42 Benjamin Ashford [facility] LIPASE 2020-08-27 05:58:00 [facility] TROPONIN I 2020-08-27 05:58:00 Benjamin Ashford [facility] THYROID STIMULATING HORMONE 2020-08-27 05:58:00 Oneal [facility] HEPATIC FUNCTION PANEL ([id number]) (ALB,T.PRO,BILI T,BU/BC,ALT,AST,ALK PHOS) 2020-08-27 05:58:00 Dejon [facility] BASIC METABOLIC PANEL (NA, K, CL, CO2, GLUCOSE, BUN, CREATININE, CA) 2020-08-27 05:58:00 Dejon [facility] LIPID PANEL ([id number])(TOTAL CHOLESTEROL, TRIGLYCERIDES, HDL) 2020-08-27 05:58:00 Oneal [facility] ETHANOL 2020-08-27 05:58:00 [facility] CBC WITH DIFF 2020-08-27 05:58:00 Benjamin Ashford [facility] PROTHROMBIN TIME / INR 2020-08-27 05:58:00 Jeremy Ashford [facility] ACTIVATED PARTIAL THRMPLAS ELAINE 2020-08-27 05:58:00 Benjamin Ashford [facility] EKG-12 LEAD 2020-08-27 05:54:03 [facility] NOTICE OF PRIVACY PRACTICES 2020-08-27 05:44:26 Doctor Unassigned, [place] [facility] CONSENT/REFUSAL FOR DIAGNOSIS AND TREATMENT 2020-08-27 05:43:44 Doctor Unassigned, [place] [facility] CONSENT/REFUSAL FOR DIAGNOSIS AND TREATMENT 2020-08-27 05:43:43 Doctor Unassigned, [place] [facility] CT ABDOMEN PELVIS W CONTRAST 2020-07-10 05:12:21 Chapito Contreras [facility] TROPONIN I 2020-07-10 03:49:00 Chapito Contreras [facility] ADC / LCC - DRUG SCREEN TRIAGE 2020-07-10 03:13:00 Chapito Contreras [facility] XR CHEST 1 VW 2020-07-10 01:05:14 Chapito Contreras [facility] LIPASE 2020-07-10 00:55:00 Chapito Contreras [facility] TROPONIN I 2020-07-10 00:55:00 Chapito Contreras [facility] COMP. METABOLIC PANEL ([id number]) 2020-07-10 00:55:00 Chapito Contreras [facility] CBC WITH DIFF 2020-07-10 00:55:00 Chapito Contreras [facility] PROTHROMBIN TIME / INR 2020-07-10 00:55:00 Yesica Contreras [facility] D-DIMER 2020-07-10 00:55:00 Chapito Contreras [facility] COVID-19 (ID NOW RAPID TESTING) 2020-07-10 00:55:00 Chapito Contreras [facility] EKG-12 LEAD 2020-07-10 00:52:35 Chapito Contreras [facility] Encounters Start Date/Time End Date/Time Encounter Type Admission Type Attending [facility] Care Facility Care Department Encounter ID Source 2024-02-04 10:45:00 2024-02-04 14:36:00 Emergency X BABS BUSTAMANTE [facility] ERT [id number] [facility] 2024-02-04 10:45:00 2024-02-04 14:36:00 Emergency DillonBabs werner [facility] 1.2.840.114 350.1.13.10 4.2.7.2.686 [id number] 084 [id number] [facility] 2023-12-28 03:16:00 2023-12-28 04:32:00 Emergency X CHAPITO CONTRERAS [facility] ERT [id number] [facility] 2023-12-28 03:16:00 2023-12-28 04:32:00 Emergency Chapito Contreras [facility] 1.2.840.114 350.1.13.10 4.2.7.2.686 [id number] 084 [id number] [facility] 2023-11-05 23:52:00 2023-11-06 02:37:00 Emergency X Nidia SOLANO [facility] ERT [id number] [facility] 2023-11-05 23:52:00 2023-11-06 02:37:00 Emergency Nidia Solano [facility] 1.2.840.114 350.1.13.10 4.2.7.2.686 [id number] 084 [id number] [facility] 2023-10-31 23:33:00 2023-11-01 04:19:00 Emergency X JOSE FRANCISCO WALTERS [facility] ERT [id number] [facility] 2023-10-31 23:33:00 2023-11-01 04:19:00 Emergency Jose Francisco Walters [facility] 1.2.840.114 350.1.13.10 4.2.7.2.686 [id number] 084 [id number] [facility] 2023-10-22 23:39:00 2023-10-23 02:31:00 Emergency X CHAPITO CONTRERAS [facility] ERT [id number] [facility] 2023-10-22 23:39:00 2023-10-23 02:31:00 Emergency Chapito Contreras [facility] 1.2.840.114 350.1.13.10 4.2.7.2.686 [id number] 084 [id number] [facility] 2023-09-25 23:04:00 2023-09-26 02:30:00 Emergency X LOREN TAM HEE-KWANG [facility] ERT [id number] [facility] 2023-09-25 23:04:00 2023-09-26 02:30:00 Emergency Loren Tam [facility] 1.2.840.114 350.1.13.10 4.2.7.2.686 [id number] 084 [id number] [facility] 2023-08-25 00:00:00 2023-08-25 00:00:00 Patient Secure Msg Doctor Unassigned, [place] [facility] 1.2.840.114 350.1.13.10 4.2.7.2.686 [id number] [id number] [facility] 2023-08-23 22:43:00 2023-08-24 02:41:00 Emergency Patrick Vergara [facility] 1.2.840.114 350.1.13.10 4.2.7.2.686 [id number] 084 [id number] [facility] 2023-08-23 22:43:00 2023-08-24 02:41:00 Emergency X PATRICK VERGARA [facility] ERT [id number] [facility] 2023-07-07 03:51:00 2023-07-07 05:56:00 Emergency X CHAPITO CONTRERAS [facility] ERT [id number] [facility] 2023-07-07 03:51:00 2023-07-07 05:56:00 Emergency Chapito Contreras [facility] 1.2840.114 350.1.13.10 4.2.7.2.686 [id number] 084 [id number] [facility] 2023-05-25 17:20:00 2023-05-25 22:37:00 Emergency X Nidia SOLANO [facility] ERT [id number] [facility] 2023-05-25 17:20:00 2023-05-25 22:37:00 Emergency Nidia Solano [facility] 1.2840.114 350.1.13.10 4.2.7.2.686 [id number] [id number] [facility] 2023-02-20 18:06:00 2023-02-20 21:03:00 Emergency X SOFIA ESCOBAR TIMOTHY [facility] ERT [id number] [facility] 2023-02-20 18:06:00 2023-02-20 21:03:00 Emergency Sofia Escobar [facility] 1.2840.114 350.1.13.10 4.2.7.2.686 [id number] 084 [id number] [facility] 2023-02-20 00:00:00 2023-02-20 00:00:00 Orders Only Doctor Unassigned, [place] [facility] 1.2840.114 350.1.13.10 4.2.7.2.686 [id number] [facility] 2022-12-29 00:24:00 2022-12-29 05:29:00 Emergency X CHAPITO CONTRERAS [facility] ERT [id number] [facility] 2022-12-29 00:24:00 2022-12-29 05:29:00 Emergency Chapito Contreras [facility] 1.2.840.114 350.1.13.10 4.2.7.2.686 [id number] [id number] [facility] 2022-11-21 02:14:00 2022-11-21 03:04:00 Emergency X PATRICK VERGARA [facility] ERT [id number] [facility] 2022-11-21 02:14:00 2022-11-21 03:04:00 Emergency Patrick Vergara [facility] 1.2.840.114 350.1.13.10 4.2.7.2.686 [id number] 084 [id number] [facility] 2022-10-29 01:37:00 2022-10-29 02:25:00 Emergency X MARIE MORALES [facility] ERT [id number] [facility] 2022-10-29 01:37:00 2022-10-29 02:25:00 Emergency Marie Morales [facility] 1.2.840.114 350.1.13.10 4.2.7.2.686 [id number] 084 [id number] [facility] 2022-06-01 23:34:00 2022-06-02 00:39:00 Emergency Dariela SAQIB CLARKE [facility] ERT [id number] [facility] 2022-06-01 23:34:00 2022-06-02 00:39:00 Emergency Saqib Clarke [facility] 1.2.840.114 350.1.13.10 4.2.7.2.686 [id number] 084 [id number] [facility] 2022-05-28 11:00:00 2022-05-28 13:39:00 Emergency X SAQIB CLARKE [facility] ERT [id number] [facility] 2022-05-28 11:00:00 2022-05-28 13:39:00 Emergency Saqib Clarke [facility] 1.2.840.114 350.1.13.10 4.2.7.2.686 [id number] 084 [id number] [facility] 2022-05-05 22:33:00 2022-05-06 01:49:00 Emergency X Nidia SOLANO [facility] ERT [id number] [facility] 2022-05-05 22:33:00 2022-05-06 01:49:00 Emergency Nidia Solano [facility] 1.2.840.114 350.1.13.10 4.2.7.2.686 [id number] [id number] [facility] 2022-05-01 07:33:00 2022-05-01 09:07:00 Emergency SAQIB MEDRANO [facility] ERT [id number] [facility] 2022-05-01 07:33:00 2022-05-01 09:07:00 Emergency Saqib Clarke [facility] 1.2.840.114 350.1.13.10 4.2.7.2.686 [id number] [id number] [facility] 2022-02-08 01:00:00 2022-02-08 03:03:00 Emergency X DEJONBENJAMIN [facility] ERT [id number] [facility] 2022-02-08 01:00:00 2022-02-08 03:03:00 Emergency Dejon Benjamin [facility] 1.2.840.114 350.1.13.10 4.2.7.2.686 [id number] 084 [id number] [facility] 2021-10-14 16:40:00 2021-10-14 19:30:00 Emergency X MARIE MORALES [facility] ERT [id number] [facility] 2021-10-14 16:40:00 2021-10-14 19:30:00 Emergency Marie Morales Dee [facility] 1.2840.114 350.1.13.10 4.2.7.2.686 [id number] [id number] [facility] 2021-05-15 12:11:58 2021-05-15 23:59:00 Hospital Encounter Geoff Cardona [facility] 1.2840.114 350.1.13.10 4.2.7.2.686 [id number] [facility] 2021-05-15 12:30:00 2021-05-15 12:30:00 Outpatient R GEOFF CARDONA [facility] [id number] [facility] 2021-05-08 12:30:00 2021-05-08 23:59:00 Hospital Encounter Kiki Mathur [facility] 1.2840.114 350.1.13.10 4.2.7.2.686 [id number] [facility] 2021-05-08 12:30:00 2021-05-08 12:30:00 Outpatient KIKI GODINEZ [facility] [id number] [facility] 2021-05-06 03:01:00 2021-05-06 04:28:00 Emergency Saqib Clarke [facility] 1.2.840.114 350.1.13.10 4.2.7.2.686 [id number] 084 [id number] [facility] 2021-05-06 03:01:00 2021-05-06 04:28:00 Emergency SAQIB MEDRANO [facility] ERT [id number] [facility] 2021-03-14 21:49:00 2021-03-15 01:22:00 Emergency Chapito Contreras [facility] 1.2.840.114 350.1.13.10 4.2.7.2.686 [id number] 084 [id number] [facility] 2021-03-14 21:49:00 2021-03-15 01:22:00 Emergency Chapito Contreras [facility] 1.2.840.114 350.1.13.10 4.2.7.2.686 [id number] 084 [id number] 2021-03-14 21:49:00 2021-03-14 21:49:00 Emergency X CHAPITO CONTRERAS [facility] ERT [id number] [facility] 2020-09-08 16:52:00 2020-09-08 18:13:00 Emergency Saqib Clarke [facility] 1.2.840.114 350.1.13.10 4.2.7.2.686 [id number] 084 [id number] [facility] 2020-09-08 16:52:00 2020-09-08 18:13:00 Emergency Saqib Clarke [facility] 1.2.840.114 350.1.13.10 4.2.7.2.686 [id number] 084 [id number] 2020-09-08 16:52:00 2020-09-08 16:52:00 Emergency SAQIB MEDRANO [facility] ERT [id number] [facility] 2020-09-06 09:52:00 2020-09-06 13:38:00 Emergency Nidia Solano [facility] 1.2.840.114 350.1.13.10 4.2.7.2.686 [id number] 084 [id number] [facility] 2020-09-06 09:52:00 2020-09-06 13:38:[facility].114 350.1.13.10 4.2.7.2.686 [id number] [id number] 2020-09-06 09:52:00 2020-09-06 09:52:00 Emergency X [facility] ERT [id number] [facility] 2020-09-06 00:00:00 2020-09-06 00:00:00 Orders Only Doctor Unassigned, [place] [facility] 1.2.840.114 350.1.13.10 4.2.7.2.686 [id number] [facility] 2020-09-06 00:00:00 2020-09-06 00:00:00 Orders Only Doctor Unassigned, [place] [facility] 1.2.840.114 350.1.13.10 4.2.7.2.686 [id number] 009 [id number] 2020-08-26 23:45:00 2020-08-30 08:05:00 [facility].114 350.1.13.10 4.2.7.2.686 [id number] [facility] 2020-08-26 23:45:00 2020-08-30 08:05:00 [facility] 1.2.840.114 350.1.13.10 4.2.7.2.686 [id number] [id number] 2020-08-26 23:43:00 2020-08-26 23:43:00 Emergency X SDMB ERT [id number] [facility] 2020-07-09 19:41:00 2020-07-10 00:40:00 Emergency [facility] 1.2.840.114 350.1.13.10 4.2.7.2.686 [id number] [id number] [facility] 2020-07-09 19:41:00 2020-07-10 00:40:00 Emergency [facility] 1.2.840.114 350.1.13.10 4.2.7.2.686 [id number] [id number] 2020-07-09 19:41:00 2020-07-09 19:41:00 Emergency X CHAPITO CONTRERAS [facility] ERT [id number] [facility] Results Test Description Test Time Test [...] clinically for any signs and symptomsof [facility]stitis. [facility] C[facility]gz[facility]37[facility]-23 17:02:35* Test Item Value Reference Range Interpretation Comme nts NA (test code = 2680705088) 139 mmol/L 135-145 K (test code = 4164156128) 4.4 mmol/L 3.5-5.0 CL (test code = 5894510504) 101 mmol/L 98-108 CO2 TOTAL (test code = 4646881295) 31 mmol/L 23-31 AGAP (test code = 0720028426) 7 2-16 BUN (test code = 3031383832) 12 mg/dL 7-23 GLUCOSE (test code = 4987804563) 100 mg/dL 70-110 CREATININE (test code = 2160-0) 0.61 mg/dL 0.60-1.25 TOTAL BILI (test code = 3387251388) 0.5 mg/dL 0.1-1.1 CALCIUM (test code = 7869282444) 9.8 mg/dL 8.6-10.6 T PROTEIN (test code = 6100813767) 8.4 g/dL 6.3-8.2 H ALBUMIN (test code = 7269895579) 4.7 g/dL 3.5-5.0 ALK PHOS (test code = 0327949663) 84 U/L 34-122 ALTv (test code = 1742-6) 23 U/L 5-50 AST(SGOT) (test code = 5295945619) 25 U/L 13-40 eGFR (test code = 07754-3) 120.0 mL/min/1.73m2 CKD-EPI eGFR (2020). Assuming creatinine has been stable day-to-day for at least three months, the eGFR indicates Category G1 (>= 90 mL/min/1.73 m2) Lab Interpretation (test code = 52948-2) [facility] Dlibj7250-21-02 17:01:54* Test Item Value Reference Range Interpretation Comme nts LIPASE (test code = 2061630620) 42 U/L 0-220 Lab Interpretation (test cod e = 86578-2) Normal [facility]20[facility]-18 07:16:16* Test Item Value Reference Range Interpretation Comme nts MAGNESIUM (test code = 7808521217) 2.2 mg/dL 1.7-2.4 Lab Interpretation (test cod e = 23931-3) [facility] (70336)2023-11-06 07:16:15* Test Item Value Reference Range Interpretation Comme nts NA (test code = 5476882612) 138 mmol/L 135-145 K (test code = 1865169812) 3.5 mmol/L 3.5-5.0 CL (test code = 6016418020) 106 mmol/L 98-108 CO2 TOTAL (test code = 9032351019) 23 mmol/L 23-31 AGAP (test code = 0574309901) 9 2-16 BUN (test code = 2974454309) 18 mg/dL 7-23 GLUCOSE (test code = 1588840902) 110 mg/dL 70-110 CREATININE (test code = 5916292565) 0.73 mg/dL 0.60-1.25 TOTAL BILI (test code = 1547988662) 0.4 mg/dL 0.1-1.1 CALCIUM (test code = 8749497072) 9.4 mg/dL 8.6-10.6 T PROTEIN (test code = 8070636606) 8.5 g/dL 6.3-8.2 H ALBUMIN (test code = 5952353421) 4.8 g/dL 3.5-5.0 ALK PHOS (test code = 1125610938) 78 U/L 34-122 ALTv (test code = 1742-6) 42 U/L 5-50 AST(SGOT) (test code = 5549693543) 43 U/L 13-40 H eGFR (test code = 66374-1) 113.6 mL/min/1.73m2 CKD-EPI eGFR (2020). Assuming creatinine has been stable day-to-day for at least three months, the eGFR indicates Category G1 (>= 90 mL/min/1.73 m2) Lab Interpretation (test code = 92146-9) [facility]normal [facility] 07:16:15* Test Item Value Reference Range Interpretation Comme nts LIPASE (test code = 8975383343) 118 U/L 0-220 Lab Interpretation (test cod e = 19910-9) Normal [facility] with Ylgk2403-17-62 06:49:12* Test Item Value Reference Range Interpretation [...] 33.5 g/dL 31.2-35.0 RDW-SD (test code = 14137-2) 46.4 fL 38.5-51.6 RDW-CV (test code = 788-0) 13.7 % 12.1-15.4 PLT (test code = 777-3) 323 See_Comment [Automated messa ge] The system which generated this result transmitted reference range: 150 - 328 10*3/?L. The reference range was not used to interpret this result as normal/abnormal. MPV (test code = 06023-6) 9.8 fL 9.8-13.0 NRBC/100 WBC (test code = 3262539919) 0.0 See_Comment [Automated [employer] ssage] The system which generated this result transmitted reference range: 0.0 - 10.0 /100 WBCs. The reference range was not used to interpret this result as normal/abnormal. NRBC x10^3 (test code = 7336728111) See_Comment [Automated messa Technitrol] The system which generated this result transmitted reference range: 10*3/?L. The reference range was not used to interpret this result as normal/abnormal. GRAN MAT (NEUT) % (test code = 770-8) 56.1 % IMM GRAN % (test code = 8316904815) 0.50 % LYMPH % (test code = 736-9) 34.8 % MONO % (test code = 5905-5) 6.3 % EOS % (test code = 713-8) 1.4 % BASO % (test code = 706-2) 0.9 % GRAN MAT x10^3(ANC) (test code = 8437193646) 6.38 10*3/uL 1.99-6.95 IMM GRAN x10^3 (test code = 1286964380) 0.06 10*3/uL 0.00-0.06 LYMPH x10^3 (test code = 731-0) 3.95 10*3/uL 1.09-3.23 H MONO x10^3 (test code = 742-7) 0.71 10*3/uL 0.36-1.02 EOS x10^3 (test code = 711-2) 0.16 10*3/uL 0.06-0.53 BASO x10^3 (test code = 704-7) 0.10 10*3/uL 0.01-0.09 H Lab Interpretation (test code = 61842-9) [facility] W JUCEWONK0969-26-46 09:00:37Ordering physician: JOSE FRANCISCO WALTERS Indication: Acute [...] abdomen andpelvis demonstrate no osseous destructive lesion. [facility] Jcofp4600-45-84 06:29:13* Test Item Value Reference Range Interpretation Comme nts NA (test code = 4241030636) 138 mmol/L 135-145 K (test code = 4800640716) 3.8 mmol/L 3.5-5.0 CL (test code = 4998570964) 106 mmol/L 98-108 CO2 TOTAL (test code = 1379416794) 21 mmol/L 23-31 L AGAP (test code = 7680682105) 11 2-16 BUN (test code = 3247758793) 13 mg/dL 7-23 GLUCOSE (test code = 7038633324) 113 mg/dL 70-110 H CREATININE (test code = 1843195903) 0.63 mg/dL 0.60-1.25 TOTAL BILI (test code = 0279235084) 0.7 mg/dL 0.1-1.1 CALCIUM (test code = 8017079022) 9.6 mg/dL 8.6-10.6 T PROTEIN (test code = 5776782206) 9.0 g/dL 6.3-8.2 H ALBUMIN (test code = 2312880996) 5.0 g/dL 3.5-5.0 ALK PHOS (test code = 9093582171) 73 U/L 34-122 ALTv (test code = 1742-6) 33 U/L 5-50 AST(SGOT) (test code = 2935684865) 33 U/L 13-40 eGFR (test code = 73336-0) 118.8 mL/min/1.73m2 CKD-EPI eGFR (2020). Assuming creatinine has been stable day-to-day for at least three months, the eGFR indicates Category G1 (>= 90 mL/min/1.73 m2) Lab Interpretation (test code = 74287-0) [facility], Qvcey8287-76-71 06:29:13* Test Item Value Reference Range Interpretation Comme nts LIPASE (test code = 3747071535) 89 U/L 0-220 Lab Interpretation (test cod e = 50182-3) Normal [facility] with Xcyecfmpgmrv9549-90-84 06:17:56* Test Item Value Reference Range Interpretation [...] 33.9 g/dL 31.2-35.0 RDW-SD (test code = 50271-0) 46.6 fL 38.5-51.6 RDW-CV (test code = 788-0) 14.0 % 12.1-15.4 PLT (test code = 777-3) 312 See_Comment [Automated messa ge] The system which generated this result transmitted reference range: 150 - 328 10*3/?L. The reference range was not used to interpret this result as normal/abnormal. MPV (test code = 40416-9) 9.7 fL 9.8-13.0 L NRBC/100 WBC (test code = 7458993145) 0.0 See_Comment [Automated [employer] ssage] The system which generated this result transmitted reference range: 0.0 - 10.0 /100 WBCs. The reference range was not used to interpret this result as normal/abnormal. NRBC x10^3 (test code = 7956396478) See_Comment [Automated messa ge] The system which generated this result transmitted reference range: 10*3/?L. The reference range was not used to interpret this result as normal/abnormal. GRAN MAT (NEUT) % (test code = 770-8) 54.9 % IMM GRAN % (test code = 8564773690) 0.30 % LYMPH % (test code = 736-9) 36.0 % MONO % (test code = 5905-5) 6.3 % EOS % (test code = 713-8) 1.6 % BASO % (test code = 706-2) 0.9 % GRAN MAT x10^3(ANC) (test code = 0789658001) 6.35 10*3/uL 1.99-6.95 IMM GRAN x10^3 (test code = 5859715167) 0.03 10*3/uL 0.00-0.06 LYMPH x10^3 (test code = 731-0) 4.15 10*3/uL 1.09-3.23 H MONO x10^3 (test code = 742-7) 0.73 10*3/uL 0.36-1.02 EOS x10^3 (test code = 711-2) 0.18 10*3/uL 0.06-0.53 BASO x10^3 (test code = 704-7) 0.10 10*3/uL 0.01-0.09 H Lab Interpretation (test code = 61516-6) Abnormal [facility] GLUCOSE (AUTOMATED)2023-11-01 05:42:28* Test Item Value Reference Range Interpretation Comme nts POCT GLU (test code = 3363589523) 110 mg/dL 70-110 Lab Interpretation (test cod e = 81305-8) Normal [facility] ABDOMEN PELVIS W XYVZFGAU2814-36-46 07:44:05Ordering physician: CHAPITO CONTRERAS Indication: Acute right [...] lesion. 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 The reference range was not used to interpret this result as normal/abnormal. RBC (test code = 789-8) 5.23 See_Comment [Automated [employer]] The system which generated this result transmitted [...] 33.9 g/dL 31.2-35.0 RDW-SD (test code = 14928-6) 45.0 fL 38.5-51.6 RDW-CV (test code = 788-0) 13.6 % 12.1-15.4 PLT (test code = 777-3) 307 See_Comment [Automated [employer]] The system which generated this result transmitted reference range: 150 - 328 10*3/?L. The reference range was not used to interpret this result as normal/abnormal. MPV (test code = 43371-4) 9.3 fL 9.8-13.0 L NRBC/100 WBC (test code = 5075452339) 0.0 See_Comment [Automated me ssage] The system which generated this result transmitted reference range: 0.0 - 10.0 /100 WBCs. The reference range was not used to interpret this result as normal/abnormal. NRBC x10^3 (test code = 0881914652) See_Comment [Automated messa ge] The system which generated this result transmitted reference range: 10*3/?L. The reference range was not used to interpret this result as normal/abnormal. SEG % (test code = 35582-8) 49 % 33-76 LYMPH % (test code = 87135-0) 40 % 14-54 MONO % (test code = 86010-9) 4 % 0-4 EOS % (test code = 70214-5) 7 % 0-3 H ANC (test code = 753-4) 5.81 10*3/uL 1.99-6.95 Lab Interpretation (test code = 03854-0) [facility] Bgiiq0527-05-18 06:32:13* Test Item Value Reference Range Interpretation Comme nts NA (test code = 4961091022) 140 mmol/L 135-145 K (test code = 2143660372) 3.7 mmol/L 3.5-5.0 CL (test code = 7993105300) 105 mmol/L 98-108 CO2 TOTAL (test code = 3392392838) 23 mmol/L 23-31 AGAP (test code = 7458926534) 12 2-16 BUN (test code = 7285091055) 15 mg/dL 7-23 GLUCOSE (test code = 9765790719) 126 mg/dL 70-110 H CREATININE (test code = 8832726007) 0.89 mg/dL 0.60-1.25 TOTAL BILI (test code = 3214028988) 0.6 mg/dL 0.1-1.1 CALCIUM (test code = 4360594183) 9.5 mg/dL 8.6-10.6 T PROTEIN (test code = 2471409014) 8.6 g/dL 6.3-8.2 H ALBUMIN (test code = 1105231134) 4.7 g/dL 3.5-5.0 ALK PHOS (test code = 4081199777) 84 U/L 34-122 ALTv (test code = 1742-6) 38 U/L 5-50 AST(SGOT) (test code = 2107158956) 33 U/L 13-40 eGFR (test code = 88568-6) 107.0 mL/min/1.73m2 CKD-EPI eGFR (2020). Assuming creatinine has been stable day-to-day for at least three months, the eGFR indicates Category G1 (>= 90 mL/min/1.73 m2) Lab Interpretation (test code = 96182-8) [facility] Zomgc2085-75-29 06:31:52* Test Item Value Reference Range Interpretation Comme nts LIPASE (test code = 0640823471) 80 U/L 0-220 Lab Interpretation (test cod e = 78042-1) [facility] (NA, K, CL, CO2, GLUCOSE, BUN, CREATININE, CA)2023-09-26 06:00:26* Test Item Value Reference Range Interpretation Comme nts NA (test code = 5711406021) 139 mmol/L 135-145 K (test code = 9009234611) 3.9 mmol/L 3.5-5.0 CL (test code = 4706577643) 104 mmol/L 98-108 CO2 TOTAL (test code = 7765220904) 25 mmol/L 23-31 AGAP (test code = 1987396466) 10 2-16 BUN (test code = 8204687191) 14 mg/dL 7-23 GLUCOSE (test code = 1250123388) 109 mg/dL 70-110 CREATININE (test code = 2332439102) 0.77 mg/dL 0.60-1.25 CALCIUM (test code = 3941426629) 10.4 mg/dL 8.6-10.6 eGFR (test code = 07598-1) 112.5 mL/min/1.73m2 CKD-EPI eGFR (20 ). Assuming creatinine has been stable day-to-day for at least three months, the eGFR indicates Category G1 (>= 90 mL/min/1.73 m2) [facility]94690[facility] (ALB,T.PRO,BILI T,BU/BC,ALT,AST,ALK PHOS)2023-09-26 06:00:26* Test Item Value Reference Range Interpretation Comme nts TOTAL BILI (test code = 3207979276) 0.6 mg/dL 0.1-1.1 BILI UNCON (test code = 9758051468) 0.4 mg/dL 0.1-1.1 BILI CONJ (test code = 1243991130) 0.0 mg/dL 0.0-0.3 T PROTEIN (test code = 8317053590) 8.6 g/dL 6.3-8.2 H ALBUMIN (test code = 1436730929) 4.7 g/dL 3.5-5.0 ALK PHOS (test code = 5112965097) 91 U/L 34-122 ALTv (test code = 1742-6) 40 U/L 5-50 AST(SGOT) (test code = 8724203751) 27 U/L 13-40 Lab Interpretation (test cod e = 08360-0) [facility]:00:25* Test Item Value Reference Range Interpretation Comme nts LIPASE (test code = 1261883529) 73 U/L 0-220 Lab Interpretation (test cod e = 96198-4) Normal [facility] WITH [id number] 05:50:26* Test Item Value Reference Range Interpretation Comme nts WBC (test code = 6690-2) 10.08 See_Comment [Automated [employer]] The system which generated this result transmitted reference range: 4.20 - 10.70 10*3/?L. The reference range was not used to interpret this result as normal/abnormal. RBC (test code = 789-8) 5.24 See_Comment [Automated [employer]] The system which generated this result transmitted [...] 33.8 g/dL 31.2-35.0 RDW-SD (test code = 27519-7) 44.0 fL 38.5-51.6 RDW-CV (test code = 788-0) 13.1 % 12.1-15.4 PLT (test code = 777-3) 317 See_Comment [Automated messa ge] The system which generated this result transmitted reference range: 150 - 328 10*3/?L. The reference range was not used to interpret this result as normal/abnormal. MPV (test code = 86310-8) 9.6 fL 9.8-13.0 L NRBC/100 WBC (test code = 8812216840) 0.0 See_Comment [Automated [employer]] The system which generated this result transmitted reference range: 0.0 - 10.0 /100 WBCs. The reference range was not used to interpret this result as normal/abnormal. NRBC x10^3 (test code = 1268008310) See_Comment [Automated messa ge] The system which generated this result transmitted reference range: 10*3/?L. The reference range was not used to interpret this result as normal/abnormal. GRAN MAT (NEUT) % (test code = 770-8) 50.9 % IMM GRAN % (test code = 9537759545) 0.30 % LYMPH % (test code = 736-9) 38.3 % MONO % (test code = 5905-5) 7.5 % EOS % (test code = 713-8) 2.2 % BASO % (test code = 706-2) 0.8 % GRAN MAT x10^3(ANC) (test code = 5790675897) 5.13 10*3/uL 1.99-6.95 IMM GRAN x10^3 (test code = 5550326585) 0.03 10*3/uL 0.00-0.06 LYMPH x10^3 (test code = 731-0) 3.86 10*3/uL 1.09-3.23 H MONO x10^3 (test code = 742-7) 0.76 10*3/uL 0.36-1.02 EOS x10^3 (test code = 711-2) 0.22 10*3/uL 0.06-0.53 BASO x10^3 (test code = 704-7) 0.08 10*3/uL 0.01-0.09 Lab Interpretation (test code = 29902-7) [id number]:30:49* Test Item Value Reference Range Interpretation Comme nts TROPONIN I (test code = 1152424481) 0.001 ng/mL <=0.034 LAURIE (test code = [...] of biotin. Lab Interpretation (test code = 85673-3) [facility] (72974)2023-08-24 05:19:05* Test Item Value Reference Range Interpretation Comme nts NA (test code = 6556559064) 138 mmol/L 135-145 K (test code = 4479586900) 4.3 mmol/L 3.5-5.0 CL (test code = 9936708488) 100 mmol/L 98-108 CO2 TOTAL (test code = 9791180469) 25 mmol/L 23-31 AGAP (test code = 8373872159) 13 2-16 BUN (test code = 8970976924) 15 mg/dL 7-23 GLUCOSE (test code = 8766263607) 198 mg/dL 70-110 H CREATININE (test code = 4162351374) 0.86 mg/dL 0.60-1.25 TOTAL BILI (test code = 0841522947) 0.3 mg/dL 0.1-1.1 CALCIUM (test code = 8814342360) 10.3 mg/dL 8.6-10.6 T PROTEIN (test code = 5560109823) 8.6 g/dL 6.3-8.2 H ALBUMIN (test code = 9419243872) 4.5 g/dL 3.5-5.0 ALK PHOS (test code = 9533022513) 94 U/L 34-122 ALTv (test code = 1742-6) 44 U/L 5-50 AST(SGOT) (test code = 9362599880) 28 U/L 13-40 eGFR (test code = 49146-1) 108.8 mL/min/1.73m2 CKD-EPI eGFR (2020). Assuming creatinine has been stable day-to-day for at least three months, the eGFR indicates Category G1 (>= 90 mL/min/1.73 m2) Lab Interpretation (test code = 38553-1) Abnormal [facility] WITH [id number] 05:01:26* Test Item Value Reference Range Interpretation Comme nts WBC (test code = 6690-2) 10.38 See_Comment [Automated [employer]] The system which generated this result transmitted reference range: 4.20 - 10.70 10*3/?L. The reference range was not used to interpret this result as normal/abnormal. RBC (test code = 789-8) 5.08 See_Comment [Automated [employer]] The system which generated this result transmitted [...] 33.5 g/dL 31.2-35.0 RDW-SD (test code = 11352-7) 43.8 fL 38.5-51.6 RDW-CV (test code = 788-0) 13.0 % 12.1-15.4 PLT (test code = 777-3) 298 See_Comment [Automated [employer]] The system which generated this result transmitted reference range: 150 - 328 10*3/?L. The reference range was not used to interpret this result as normal/abnormal. MPV (test code = 89678-4) 10.0 fL 9.8-13.0 NRBC/100 WBC (test code = 2023063548) 0.0 See_Comment [Automated me ssage] The system which generated this result transmitted reference range: 0.0 - 10.0 /100 WBCs. The reference range was not used to interpret this result as normal/abnormal. NRBC x10^3 (test code = 4661407598) See_Comment [Automated messa ge] The system which generated this result transmitted reference range: 10*3/?L. The reference range was not used to interpret this result as normal/abnormal. GRAN MAT (NEUT) % (test code = 770-8) 52.4 % IMM GRAN % (test code = 9976386651) 0.30 % LYMPH % (test code = 736-9) 36.6 % MONO % (test code = 5905-5) 7.2 % EOS % (test code = 713-8) 2.6 % BASO % (test code = 706-2) 0.9 % GRAN MAT x10^3(ANC) (test code = 8926087469) 5.44 10*3/uL 1.99-6.95 IMM GRAN x10^3 (test code = 0468751544) 0.03 10*3/uL 0.00-0.06 LYMPH x10^3 (test code = 731-0) 3.80 10*3/uL 1.09-3.23 H MONO x10^3 (test code = 742-7) 0.75 10*3/uL 0.36-1.02 EOS x10^3 (test code = 711-2) 0.27 10*3/uL 0.06-0.53 BASO x10^3 (test code = 704-7) 0.09 10*3/uL 0.01-0.09 Lab Interpretation (test code = 38515-1) Abnormal [facility] GLUCOSE (AUTOMATED)2023-05-26 02:18:34* Test Item Value Reference Range Interpretation Comme nts POCT GLU (test code = 0226569960) 173 mg/dL 70-110 H Lab Interpretation (test cod e = 70142-9) Abnormal [facility] GLUCOSE(AGE >30DAYS)2023-05-26 02:17:00* Test Item Value Reference Range Interpretation Comme nts POCT Glu (age>30days) (test code = 3342) 173 mg/dL 70-110 A Lab Interpretation (test cod e = 73803-7) Abnormal [facility] [id number] 01:41:57* Test Item Value Reference Range Interpretation Comme nts TROPONIN I (test code = 9070169150) 0.008 ng/mL <=0.034 LAURIE (test code = [...] of biotin. Lab Interpretation (test code = 64228-1) Normal [facility] GLUCOSE (AUTOMATED)2023-05-26 01:23:43* Test Item Value Reference Range Interpretation Comme nts POCT GLU (test code = 5001525594) 185 mg/dL 70-110 H Lab Interpretation (test cod e = 49357-4) [facility] [id number] 00:40:36* Test Item Value Reference Range Interpretation Comme nts NT-proBNP (test code = 09830-7) <=125 Lab Interpretation (test cod e = 09530-9) Normal [facility] [id number] 00:06:55* Test Item Value Reference Range Interpretation Comme nts TROPONIN I (test code = 6983313060) 0.003 ng/mL <=0.034 LAURIE (test code = [...] of biotin. Lab Interpretation (test code = 50618-8) [facility] 23:56:12* Test Item Value Reference Range Interpretation Comme nts MAGNESIUM (test code = 4053819096) 2.0 mg/dL 1.7-2.4 Lab Interpretation (test cod e = 45637-1) [facility] (80630)2023-05-25 23:55:52* Test Item Value Reference Range Interpretation Comme nts NA (test code = 5565990451) 138 mmol/L 135-145 K (test code = 6184210628) 4.3 mmol/L 3.5-5.0 CL (test code = 0887990849) 103 mmol/L 98-108 CO2 TOTAL (test code = 4355327148) 22 mmol/L 23-31 L AGAP (test code = 0057957572) 13 2-16 BUN (test code = 8638906365) 22 mg/dL 7-23 GLUCOSE (test code = 6493803929) 274 mg/dL 70-110 H CREATININE (test code = 5207313654) 0.79 mg/dL 0.60-1.25 TOTAL BILI (test code = 7209184400) 0.6 mg/dL 0.1-1.1 CALCIUM (test code = 8487265650) 9.2 mg/dL 8.6-10.6 T PROTEIN (test code = 1854215355) 8.4 g/dL 6.3-8.2 H ALBUMIN (test code = 4012954071) 4.5 g/dL 3.5-5.0 ALK PHOS (test code = 9780693235) 88 U/L 34-122 ALTv (test code = 1742-6) 48 U/L 5-50 AST(SGOT) (test code = 0607835595) 37 U/L 13-40 eGFR (test code = 1570440353) 106.1 mL/min/1.73m2 LAURIE (test code = LAURIE) [...] imaging tests). Lab Interpretation (test code = 58621-8) [facility] 23:55:32* Test Item Value Reference Range Interpretation Comme nts LIPASE (test code = 9952090267) 154 U/L 0-220 Lab Interpretation (test cod e = 15540-7) [facility] [id number] 23:33:34* Test Item Value Reference Range Interpretation Comme nts WBC (test code = 6690-2) 9.32 See_Comment [Automated [employer]] The system which generated this result transmitted reference range: 4.20 - 10.70 10*3/?L. The reference range was not used to interpret this result as normal/abnormal. RBC (test code = 789-8) 4.89 See_Comment [Automated [employer]] The system which generated this result [...] 33.7 g/dL 31.2-35.0 RDW-SD (test code = 28542-5) 45.4 fL 38.5-51.6 RDW-CV (test code = 788-0) 13.4 % 12.1-15.4 PLT (test code = 777-3) 286 See_Comment [Automated [employer]] The system which generated this result transmitted reference range: 150 - 328 10*3/?L. The reference range was not used to interpret this result as normal/abnormal. MPV (test code = 03207-4) 10.2 fL 9.8-13.0 NRBC/100 WBC (test code = 3725805547) 0.0 See_Comment [Automated me ssage] The system which generated this result transmitted reference range: 0.0 - 10.0 /100 WBCs. The reference range was not used to interpret this result as normal/abnormal. NRBC x10^3 (test code = 6528894483) See_Comment [Automated me ssage] The system which generated this result transmitted reference range: 10*3/?L. The reference range was not used to interpret this result as normal/abnormal. GRAN MAT (NEUT) % (test code = 770-8) 57.3 % IMM GRAN % (test code = 9251956593) 0.40 % LYMPH % (test code = 736-9) 32.6 % MONO % (test code = 5905-5) 6.8 % EOS % (test code = 713-8) 1.9 % BASO % (test code = 706-2) 1.0 % GRAN MAT x10^3(ANC) (test code = 3907495588) 5.34 10*3/uL 1.99-6.95 IMM GRAN x10^3 (test code = 5445263482) 0.04 10*3/uL 0.00-0.06 LYMPH x10^3 (test code = 731-0) 3.04 10*3/uL 1.09-3.23 MONO x10^3 (test code = 742-7) 0.63 10*3/uL 0.36-1.02 EOS x10^3 (test code = 711-2) 0.18 10*3/uL 0.06-0.53 BASO x10^3 (test code = 704-7) 0.09 10*3/uL 0.01-0.09 [facility] with Ifbfecwmuxni9570-70-75 07:42:13* Test Item Value Reference Range Interpretation [...] 33.3 g/dL 31.2-35.0 RDW-SD (test code = 04984-9) 44.4 fL 38.5-51.6 RDW-CV (test code = 788-0) 13.6 % 12.1-15.4 PLT (test code = 777-3) 187 See_Comment [Automated messa ge] The system which generated this result transmitted reference range: 150 - 328 10*3/?L. The reference range was not used to interpret this result as normal/abnormal. MPV (test code = 03290-9) 10.4 fL 9.8-13.0 NRBC/100 WBC (test code = 9700537312) 0.0 See_Comment [Automated [employer]] The system which generated this result transmitted reference range: 0.0 - 10.0 /100 WBCs. The reference range was not used to interpret this result as normal/abnormal. NRBC x10^3 (test code = 7671678868) See_Comment [Automated messa ge] The system which generated this result transmitted reference range: 10*3/?L. The reference range was not used to interpret this result as normal/abnormal. GRAN MAT (NEUT) % (test code = 770-8) 55.0 % IMM GRAN % (test code = 8999456885) 0.50 % LYMPH % (test code = 736-9) 34.8 % MONO % (test code = 5905-5) 6.5 % EOS % (test code = 713-8) 2.5 % BASO % (test code = 706-2) 0.7 % GRAN MAT x10^3(ANC) (test code = 6788545147) 5.95 10*3/uL 1.99-6.95 IMM GRAN x10^3 (test code = 3406246051) 0.05 10*3/uL 0.00-0.06 LYMPH x10^3 (test code = 731-0) 3.77 10*3/uL 1.09-3.23 H MONO x10^3 (test code = 742-7) 0.70 10*3/uL 0.36-1.02 EOS x10^3 (test code = 711-2) 0.27 10*3/uL 0.06-0.53 BASO x10^3 (test code = 704-7) 0.08 10*3/uL 0.01-0.09 Lab Interpretation (test code = 81223-9) [facility] Hospital[facility] Metabolic [id number] 07:32:47* Test Item Value Reference Range Interpretation Comme nts NA (test code = 4848453161) 136 mmol/L 135-145 K (test code = 4987029618) 4.2 mmol/L 3.5-5.0 CL (test code = 5016804935) 104 mmol/L 98-108 CO2 TOTAL (test code = 4029424703) 21 mmol/L 23-31 L AGAP (test code = 7902179100) 11 2-16 BUN (test code = 2962197224) 17 mg/dL 7-23 GLUCOSE (test code = 1236649498) 125 mg/dL 70-110 H CREATININE (test code = 1757761413) 0.63 mg/dL 0.60-1.25 TOTAL BILI (test code = 3257428950) 0.3 mg/dL 0.1-1.1 CALCIUM (test code = 4241339550) 9.3 mg/dL 8.6-10.6 T PROTEIN (test code = 2211542777) 7.8 g/dL 6.3-8.2 ALBUMIN (test code = 9640012896) 4.5 g/dL 3.5-5.0 ALK PHOS (test code = 9055571451) 97 U/L 34-122 ALTv (test code = 1742-6) 42 U/L 5-50 AST(SGOT) (test code = 6131720774) 34 U/L 13-40 eGFR (test code = 6130497514) 137.7 mL/min/1.73m2 LAURIE (test code = LAURIE) [...] imaging tests). Lab Interpretation (test code = 39662-4) [facility] Hospital[facility], [id number] 07:31:52* Test Item Value Reference Range Interpretation Comme nts LIPASE (test code = 6089342415) 73 U/L 0-220 Lab Interpretation (test cod e = 34143-0) Normal [facility] HospitalTHYROID STIMULATING [id number] 18:17:21 * Test Item Value Reference Range Interpretation Comme nts TSH (test code = 7667483810) See_Comment H [Automated [employer]] The system which generated this result transmitted reference range: 0.45 - 4.70 mIU/L. The reference range was not used to interpret this result as normal/abnormal. Lab Interpretation (test code = 52216-6) Abnormal [facility] [id number] 16:53:41* Test Item Value Reference Range Interpretation Comme nts FREE T4 (test code = 0238076317) See_Comment L [Automated [employer]] The system which generated this result transmitted reference range: 0.78 - 2.20 ng/dL:. The reference range was not used to interpret this result as normal/abnormal. Lab Interpretation (test code = 74526-2) Abnormal [facility] [id number] 16:53:04* Test Item Value Reference Range Interpretation Comme nts FREE T3 (test code = 0094797999) 1.50 pg/mL 2.77-5.27 L Lab Interpretation (test cod e = 15124-9) Abnormal [facility]. METABOLIC PANEL (90905)2022-05-28 16:37:03* Test Item Value Reference Range Interpretation Comme nts NA (test code = 0271243186) 138 mmol/L 135-145 K (test code = 5197633024) 4.4 mmol/L 3.5-5 CL (test code = 9881247069) 101 mmol/L 98-108 CO2 TOTAL (test code = 7144648238) 27 mmol/L 23-31 AGAP (test code = 1303462901) 2-16 BUN (test code = 2863064540) 14 mg/dL 7-23 GLUCOSE (test code = 2035967135) 102 mg/dL 70-110 CREATININE (test code = 0578616738) 0.82 mg/dL 0.6-1.25 TOTAL BILI (test code = 9499233579) 0.5 mg/dL 0.1-1.1 CALCIUM (test code = 7454610254) 9.3 mg/dL 8.6-10.6 T PROTEIN (test code = 2243978278) 8.3 g/dL 6.3-8.2 H ALBUMIN (test code = 2013964958) 4.8 g/dL 3.5-5 ALK PHOS (test code = 4117312385) 75 U/L 34-122 ALTv (test code = 1742-6) 56 U/L 5-50 H AST(SGOT) (test code = 0736121973) 42 U/L 13-40 H eGFR (test code = 5283087395) mL/min/1.73m2 LAURIE (test code = LAURIE) Association [...] imaging tests). Lab Interpretation (test code = 42780-5) Abnormal [facility] WITH [id number] 16:25:38* Test Item Value Reference Range Interpretation Comme nts WBC (test code = 6690-2) See_Comment [[employer]] The system which generated this result transmitted reference range: 4.20 - 10.70 10*3/?L. The reference range was not used to interpret this result as normal/abnormal. RBC (test code = 789-8) See_Comment [[employer]] The system which generated this result transmitted [...] 33.0 g/dL 31.2-35 RDW-SD (test code = 67758-3) 48.1 fL 38.5-51.6 RDW-CV (test code = 788-0) 14.2 % 12.1-15.4 PLT (test code = 777-3) See_Comment [[employer]] The system which generated this result transmitted reference range: 150 - 328 10*3/?L. The reference range was not used to interpret this result as normal/abnormal. MPV (test code = 86516-2) 9.5 fL 9.8-13 L NRBC/100 WBC (test code = 4071051035) See_Comment [Automated me ssage] The system which generated this result transmitted reference range: 0.0 - 10.0 /100 WBCs. The reference range was not used to interpret this result as normal/abnormal. NRBC x10^3 (test code = 9783355928) See_Comment [Automated messa ge] The system which generated this result transmitted reference range: 10*3/?L. The reference range was not used to interpret this result as normal/abnormal. GRAN MAT (NEUT) % (test code = 770-8) 56.3 % IMM GRAN % (test code = 4088681678) 0.70 % LYMPH % (test code = 736-9) 32.8 % MONO % (test code = 5905-5) 6.2 % EOS % (test code = 713-8) 2.7 % BASO % (test code = 706-2) 1.3 % GRAN MAT x10^3(ANC) (test code = 5555614622) 4.87 10*3/uL 1.99-6.95 IMM GRAN x10^3 (test code = 1150033856) 0.06 10*3/uL 0-0.06 LYMPH x10^3 (test code = 731-0) 2.84 10*3/uL 1.09-3.23 MONO x10^3 (test code = 742-7) 0.54 10*3/uL 0.36-1.02 EOS x10^3 (test code = 711-2) 0.23 10*3/uL 0.06-0.53 BASO x10^3 (test code = 704-7) 0.11 10*3/uL 0.01-0.09 H Lab Interpretation (test code = 16963-5) [facility]53* Test Item Value Reference Range Interpretation Comme nts MAGNESIUM (test code = 4897070025) 1.8 mg/dL 1.7-2.4 Lab Interpretation (test cod e = 87696-9) [facility] [id number] 06:00:52* Test Item Value Reference Range Interpretation Comments TROPONIN I (test code = 9524125594) 0.002 ng/mL See_Comment [Automated message] The system which generated this result transmitted reference range: <=0.034. The reference range was not used to interpret this result as normal/abnormal. LUARIE (test code = LAURIE) Reference (Normal) Range [...] of biotin. Lab Interpretation (test code = 42933-6) [facility]OL[facility] (68513)2022-05-06 05:49:11* Test Item Value Reference Range Interpretation Comme nts NA (test code = 9234719305) 136 mmol/L 135-145 K (test code = 0626811042) 4.4 mmol/L 3.5-5 CL (test code = 2424126552) 100 mmol/L 98-108 CO2 TOTAL (test code = 9870906346) 23 mmol/L 23-31 AGAP (test code = 8040370796) 2-16 BUN (test code = 8125297403) 16 mg/dL 7-23 GLUCOSE (test code = 7443425050) 116 mg/dL 70-110 H CREATININE (test code = 2718929694) 0.81 mg/dL 0.6-1.25 TOTAL BILI (test code = 9526417025) 0.6 mg/dL 0.1-1.1 CALCIUM (test code = 9445108549) 10.3 mg/dL 8.6-10.6 T PROTEIN (test code = 0668740050) 9.2 g/dL 6.3-8.2 H ALBUMIN (test code = 0218073080) 5.3 g/dL 3.5-5 H ALK PHOS (test code = 6106748716) 89 U/L 34-122 ALTv (test code = 1742-6) 44 U/L 5-50 AST(SGOT) (test code = 3679240972) 36 U/L 13-40 eGFR (test code = 6255462736) mL/min/1.73m2 LAURIE (test code = LAURIE) Association [...] imaging tests). Lab Interpretation (test code = 54404-2) [facility] 05:48:51* Test Item Value Reference Range Interpretation Comme nts LIPASE (test code = 5591625439) 67 U/L 0-220 Lab Interpretation (test cod e = 48806-4) Normal [facility] WITH [id number] 05:36:33* Test Item Value Reference Range Interpretation [...] 34.1 g/dL 31.2-35 RDW-SD (test code = 35818-6) 45.9 fL 38.5-51.6 RDW-CV (test code = 788-0) 13.9 % 12.1-15.4 PLT (test code = 777-3) See_Comment [Automated [employer]] The system which generated this result transmitted reference range: 150 - 328 10*3/?L. The reference range was not used to interpret this result as normal/abnormal. MPV (test code = 94947-9) 9.5 fL 9.8-13 L NRBC/100 WBC (test code = 0071598398) See_Comment [Automated [employer]] The system which generated this result transmitted reference range: 0.0 - 10.0 /100 WBCs. The reference range was not used to interpret this result as normal/abnormal. NRBC x10^3 (test code = 0281395265) See_Comment [Automated [employer]] The system which generated this result transmitted reference range: 10*3/?L. The reference range was not used to interpret this result as normal/abnormal. GRAN MAT (NEUT) % (test code = 770-8) 60.3 % IMM GRAN % (test code = 9714987975) 0.80 % LYMPH % (test code = 736-9) 27.6 % MONO % (test code = 5905-5) 6.8 % EOS % (test code = 713-8) 3.5 % BASO % (test code = 706-2) 1.0 % GRAN MAT x10^3(ANC) (test code = 3161037229) 6.95 10*3/uL 1.99-6.95 IMM GRAN x10^3 (test code = 4804975282) 0.09 10*3/uL 0-0.06 H LYMPH x10^3 (test code = 731-0) 3.19 10*3/uL 1.09-3.23 MONO x10^3 (test code = 742-7) 0.79 10*3/uL 0.36-1.02 EOS x10^3 (test code = 711-2) 0.40 10*3/uL 0.06-0.53 BASO x10^3 (test code = 704-7) 0.12 10*3/uL 0.01-0.09 H Lab Interpretation (test code = 03316-6) [facility] (18048)2022-05-01 13:28:01* Test Item Value Reference Range Interpretation Comme nts NA (test code = 3529996748) 139 mmol/L 135-145 K (test code = 3657150645) 4.7 mmol/L 3.5-5 CL (test code = 3311761842) 104 mmol/L 98-108 CO2 TOTAL (test code = 7264930866) 23 mmol/L 23-31 AGAP (test code = 2447320893) 2-16 BUN (test code = 3030053466) 14 mg/dL 7-23 GLUCOSE (test code = 6473514572) 128 mg/dL 70-110 H CREATININE (test code = 0104316466) 0.62 mg/dL 0.6-1.25 TOTAL BILI (test code = 5551017640) 0.4 mg/dL 0.1-1.1 CALCIUM (test code = 9730381809) 9.2 mg/dL 8.6-10.6 T PROTEIN (test code = 4550775400) 8.1 g/dL 6.3-8.2 ALBUMIN (test code = 0111540948) 4.6 g/dL 3.5-5 ALK PHOS (test code = 6338561686) 92 U/L 34-122 ALTv (test code = 1742-6) 43 U/L 5-50 AST(SGOT) (test code = 2654995434) 30 U/L 13-40 eGFR (test code = 8208667375) mL/min/1.73m2 LAURIE (test code = LAURIE) Association [...] imaging tests). Lab Interpretation (test code = 69032-9) Abnormal [facility] WITH [id number] 13:20:02* Test Item Value Reference Range Interpretation Comme nts WBC (test code = 6690-2) See_Comment [[employer]] The system which generated this result transmitted reference range: 4.20 - 10.70 10*3/?L. The reference range was not used to interpret this result as normal/abnormal. RBC (test code = 789-8) See_Comment [Automated [employer]] The system which generated this result [...] 32.8 g/dL 31.2-35 RDW-SD (test code = 14291-1) 47.5 fL 38.5-51.6 RDW-CV (test code = 788-0) 14.1 % 12.1-15.4 PLT (test code = 777-3) See_Comment [Automated [employer]] The system which generated this result transmitted reference range: 150 - 328 10*3/?L. The reference range was not used to interpret this result as normal/abnormal. MPV (test code = 74695-3) 9.3 fL 9.8-13 L NRBC/100 WBC (test code = 5476513656) See_Comment [Automated [employer]age] The system which generated this result transmitted reference range: 0.0 - 10.0 /100 WBCs. The reference range was not used to interpret this result as normal/abnormal. NRBC x10^3 (test code = 0630308536) See_Comment [Automated [employer]] The system which generated this result transmitted reference range: 10*3/?L. The reference range was not used to interpret this result as normal/abnormal. GRAN MAT (NEUT) % (test code = 770-8) 58.9 % IMM GRAN % (test code = 6634735919) 0.60 % LYMPH % (test code = 736-9) 29.2 % MONO % (test code = 5905-5) 6.8 % EOS % (test code = 713-8) 3.5 % BASO % (test code = 706-2) 1.0 % GRAN MAT x10^3(ANC) (test code = 1351780337) 5.80 10*3/uL 1.99-6.95 IMM GRAN x10^3 (test code = 6109961434) 0.06 10*3/uL 0-0.06 LYMPH x10^3 (test code = 731-0) 2.87 10*3/uL 1.09-3.23 MONO x10^3 (test code = 742-7) 0.67 10*3/uL 0.36-1.02 EOS x10^3 (test code = 711-2) 0.34 10*3/uL 0.06-0.53 BASO x10^3 (test code = 704-7) 0.10 10*3/uL 0.01-0.09 H Lab Interpretation (test code = 49611-4) [id number]:04:38* Test Item Value Reference Range Interpretation Comments TROPONIN I (test code = 6179380602) 0.002 ng/mL See_Comment [Automated message] The system [...] of biotin. Lab Interpretation (test code = 47885-2) [id number] 07:00:14* Test Item Value Reference Range Interpretation Comme nts NT-proBNP (test code = 3290072292) 25 pg/mL See_Comment [Automated message] The system which generated this result transmitted reference range: <=125. The reference range was not used to interpret this result as normal/abnormal. LAURIE (test code = LAURIE) Biotin has been reported to cause a negative bias, interpret results relative to patient's use of biotin. Lab Interpretation (test code = 71670-1) [facility]53:02* Test Item Value Reference Range Interpretation Comme nts ALCOHOL (test code = 2780767855) <10 mg/dL LAURIE (test code = LAURIE) <10 Abytsoiq54-321 Toxic>100 Depression of TIRE FABRICATOR>400 [facility]:50:57* Test Item Value Reference Range Interpretation Comme nts LIPASE (test code = 5383062060) 65 U/L 0-220 Lab Interpretation (test cod e = 01364-6) [facility] (16169)2022-02-08 06:50:57* Test Item Value Reference Range Interpretation Comme nts NA (test code = 6045472631) 138 mmol/L 135-145 K (test code = 0572966942) 4.3 mmol/L 3.5-5.0 CL (test code = 1676563233) 103 mmol/L 98-108 CO2 TOTAL (test code = 2973368468) 23 mmol/L 23-31 AGAP (test code = 7680998472) 2-16 BUN (test code = 7385944664) 14 mg/dL 7-23 GLUCOSE (test code = 0161368139) 142 mg/dL 70-110 H CREATININE (test code = 3898681813) 0.60 mg/dL 0.60-1.25 TOTAL BILI (test code = 8962405630) 0.5 mg/dL 0.1-1.1 CALCIUM (test code = 8600882250) 9.1 mg/dL 8.6-10.6 T PROTEIN (test code = 6219951337) 7.9 g/dL 6.3-8.2 ALBUMIN (test code = 3162844202) 4.5 g/dL 3.5-5.0 ALK PHOS (test code = 1615572536) 81 U/L 34-122 ALTv (test code = 1742-6) 28 U/L 5-50 AST(SGOT) (test code = 1652454276) 24 U/L 13-40 eGFR (test code = 3452821303) mL/min/1.73m2 LAURIE (test code = LAURIE) Association [...] imaging tests). Lab Interpretation (test code = 89181-6) [facility] [id number] 06:47:31* Test Item Value Reference Range Interpretation Comme nts APTT Patient (test code = 3173-2) See_Comment [Automated message] The system which generated this result transmitted reference range: 23 - 38 Seconds. The reference range was not used to interpret this result as normal/abnormal. LAURIE (test code = LAURIE) The [facility] patient population mean normal value for aPTT is 30 seconds. Lab Interpretation (test code = 42485-6) Normal [facility] / [id number] 06:45:33* Test Item Value Reference Range Interpretation [...] the indications. Lab Interpretation (test code = 76637-9) Normal [facility] WITH [id number] 06:37:36* Test Item Value Reference Range Interpretation [...] 33.4 g/dL 31.2-35.0 RDW-SD (test code = 03450-3) 42.7 fL 38.5-51.6 RDW-CV (test code = 788-0) 13.1 % 12.1-15.4 PLT (test code = 777-3) See_Comment [Automated messa ge] The system which generated this result transmitted reference range: 150 - 328 10*3/?L. The reference range was not used to interpret this result as normal/abnormal. MPV (test code = 36375-4) 9.7 fL 9.8-13.0 L NRBC/100 WBC (test code = 5730022748) See_Comment [Automated me ssage] The system which generated this result transmitted reference range: 0.0 - 10.0 /100 WBCs. The reference range was not used to interpret this result as normal/abnormal. NRBC x10^3 (test code = 2750194602) <0.01 See_Comment [Automated messa ge] The system which generated this result transmitted reference range: 10*3/?L. The reference range was not used to interpret this result as normal/abnormal. GRAN MAT (NEUT) % (test code = 770-8) 54.9 % IMM GRAN % (test code = 1042484326) 0.70 % LYMPH % (test code = 736-9) 32.9 % MONO % (test code = 5905-5) 8.7 % EOS % (test code = 713-8) 2.0 % BASO % (test code = 706-2) 0.8 % GRAN MAT x10^3(ANC) (test code = 1827013250) 5.84 10*3/uL 1.99-6.95 IMM GRAN x10^3 (test code = 5723990622) 0.07 10*3/uL 0.00-0.06 H LYMPH x10^3 (test code = 731-0) 3.50 10*3/uL 1.09-3.23 H MONO x10^3 (test code = 742-7) 0.92 10*3/uL 0.36-1.02 EOS x10^3 (test code = 711-2) 0.21 10*3/uL 0.06-0.53 BASO x10^3 (test code = 704-7) 0.09 10*3/uL 0.01-0.09 Lab Interpretation (test code = 45049-8) Abnormal [facility] [id number] 01:09:15* Test Item Value Reference Range Interpretation Comments TROPONIN I (test code = 6087695970) 0.003 ng/mL See_Comment [Automated message] The system [...] of biotin. Lab Interpretation (test code = 87587-3) Normal [facility]. METABOLIC PANEL (26947)2021-10-15 00:56:56* Test Item Value Reference Range Interpretation Comme nts NA (test code = 9990335622) 135 mmol/L 135-145 K (test code = 9576977292) 4.6 mmol/L 3.5-5.0 CL (test code = 5934124559) 101 mmol/L 98-108 CO2 TOTAL (test code = 9410072797) 25 mmol/L 23-31 AGAP (test code = 6378358018) 2-16 BUN (test code = 6205442344) 20 mg/dL 7-23 GLUCOSE (test code = 5055406515) 130 mg/dL 70-110 H CREATININE (test code = 6557846277) 0.92 mg/dL 0.60-1.25 TOTAL BILI (test code = 5567178378) 0.4 mg/dL 0.1-1.1 CALCIUM (test code = 9491912298) 10.0 mg/dL 8.6-10.6 T PROTEIN (test code = 3809022931) 8.5 g/dL 6.3-8.2 H ALBUMIN (test code = 6619130615) 4.8 g/dL 3.5-5.0 ALK PHOS (test code = 4190778775) 89 U/L 34-122 ALTv (test code = 1742-6) 59 U/L 5-50 H AST(SGOT) (test code = 4059726757) 38 U/L 13-40 eGFR (test code = 1582476123) mL/min/1.73m2 LAURIE (test code = LAURIE) Association [...] imaging tests). Lab Interpretation (test code = 70589-4) [facility]normal [facility] 00:56:36* Test Item Value Reference Range Interpretation Comme nts LIPASE (test code = 9176895798) 77 U/L 0-220 Lab Interpretation (test cod e = 72049-2) Normal [facility] WITH [id number] 00:37:36* Test Item Value Reference Range Interpretation Comme nts WBC (test code = 6690-2) See_Comment [Automated [employer]] The system which generated this result transmitted reference range: 4.20 - 10.70 10*3/?L. The reference range was not used to interpret this result as normal/abnormal. RBC (test code = 789-8) See_Comment [Automated [employer]] The system which generated this result transmitted [...] 33.6 g/dL 31.2-35.0 RDW-SD (test code = 27056-7) 44.2 fL 38.5-51.6 RDW-CV (test code = 788-0) 13.3 % 12.1-15.4 PLT (test code = 777-3) See_Comment [Automated messa ge] The system which generated this result transmitted reference range: 150 - 328 10*3/?L. The reference range was not used to interpret this result as normal/abnormal. MPV (test code = 39500-3) 9.5 fL 9.8-13.0 L NRBC/100 WBC (test code = 6404741951) See_Comment [Automated [employer] ssage] The system which generated this result transmitted reference range: 0.0 - 10.0 /100 WBCs. The reference range was not used to interpret this result as normal/abnormal. NRBC x10^3 (test code = 7564127526) <0.01 See_Comment [Automated messa ge] The system which generated this result transmitted reference range: 10*3/?L. The reference range was not used to interpret this result as normal/abnormal. GRAN MAT (NEUT) % (test code = 770-8) 55.3 % IMM GRAN % (test code = 0827368415) 0.60 % LYMPH % (test code = 736-9) 32.5 % MONO % (test code = 5905-5) 7.8 % EOS % (test code = 713-8) 2.7 % BASO % (test code = 706-2) 1.1 % GRAN MAT x10^3(ANC) (test code = 1789574397) 5.74 10*3/uL 1.99-6.95 IMM GRAN x10^3 (test code = 1555426290) 0.06 10*3/uL 0.00-0.06 LYMPH x10^3 (test code = 731-0) 3.37 10*3/uL 1.09-3.23 H MONO x10^3 (test code = 742-7) 0.81 10*3/uL 0.36-1.02 EOS x10^3 (test code = 711-2) 0.28 10*3/uL 0.06-0.53 BASO x10^3 (test code = 704-7) 0.11 10*3/uL 0.01-0.09 H Lab Interpretation (test code = 73474-6) [facility]normal [facility] (ID NOW RAPID TESTING)2021-03-15 04:10:11* Test Item Value Reference Range Interpretation Comme nts SARS-CoV-2 Rapid ID NOW (test code = 63994-2) Not Detected Not Detected LAURIE (test code = LAURIE) ID NOW COVID-19 As say is an isothermal nucleic acid amplification test intended for the qualitative detection of nucleic acid from SARS-CoV-2 viral RNA in nasopharyngeal (LETTER OF CREDIT CLERK) specimens. It is used under Emergency Use [...] clinically indicated. Lab Interpretation (test code = 42200-0) [facility] METABOLIC PANEL (75519)2021-03-15 03:35:30* Test Item Value Reference Range Interpretation Comme nts NA (test code = 5471919161) 139 mmol/L 135-145 K (test code = 2671763263) 3.2 mmol/L 3.5-5.0 L CL (test code = 6597475982) 109 mmol/L 98-108 H CO2 TOTAL (test code = 2850334383) 23 mmol/L 23-31 AGAP (test code = 2547568137) 2-16 BUN (test code = 8956213113) 19 mg/dL 7-23 GLUCOSE (test code = 5527664066) 150 mg/dL 70-110 H CREATININE (test code = 1551871893) 0.81 mg/dL 0.60-1.25 TOTAL BILI (test code = 7838007539) 0.3 mg/dL 0.1-1.1 CALCIUM (test code = 8847093425) 8.2 mg/dL 8.6-10.6 L T PROTEIN (test code = 0728381626) 6.9 g/dL 6.3-8.2 ALBUMIN (test code = 0854517642) 4.0 g/dL 3.5-5.0 ALK PHOS (test code = 1103551790) 77 U/L 34-122 ALTv (test code = 1742-6) 22 U/L 5-50 AST(SGOT) (test code = 3253545612) 26 U/L 13-40 eGFR (test code = 3247531779) mL/min/1.73m2 LAURIE (test code = LAURIE) Association [...] imaging tests). Lab Interpretation (test code = 19938-2) Abnormal [facility]IN[facility]IS2021-[facility] 03:35:00* Test Item Value Reference Range Interpretation Comme nts APPEARANCE (test code = 1200898430) Clear Clear COLOR (test code = 6456773533) Yellow Yellow PH (test code = 8279057119) 4.8-8.0 SP GRAVITY (test code = 4911358406) 1.003-1.030 GLU U QUAL (test code = 9648486269) Normal Normal BLOOD (test code = 5832578595) Negative Negative KETONES (test code = 7317620491) 5 mg/dL Negative A PROTEIN (test code = 2887-8) Negative Negative UROBILIN (test code = 3583796182) Normal Normal BILIRUBIN (test code = 2653960726) Negative Negative NITRITE (test code = 2074951979) Negative Negative LEUK KENNY (test code = 3633720446) Negative Negative RBC/HPF (test code = 5933427096) <1 See_Comment [Automated messa ge] The system which generated this result transmitted reference range: 0 - 3 HPF. The reference range was not used to interpret this result as normal/abnormal. WBC/HPF (test code = 1630665554) <1 See_Comment [Automated messa ge] The system which generated this result transmitted reference range: 0 - 5 HPF. The reference range was not used to interpret this result as normal/abnormal. BACTERIA (test code = 7992964059) Negative Negative MUCOUS (test code = 8453817210) Slight Negative LPF A SQ EPITH (test code = 8355534324) <1 HPF Lab Interpretation (test code = 03985-7) [facility]normal [facility] WITH [id number] 03:22:25* Test Item Value Reference Range Interpretation [...] 33.3 g/dL 31.2-35.0 RDW-SD (test code = 57482-2) 45.8 fL 38.5-51.6 RDW-CV (test code = 788-0) 13.7 % 12.1-15.4 PLT (test code = 777-3) See_Comment H [Automated messa ge] The system which generated this result transmitted reference range: 150 - 328 10*3/?L. The reference range was not used to interpret this result as normal/abnormal. MPV (test code = 13213-4) 9.4 fL 9.8-13.0 L NRBC/100 WBC (test code = 1548653687) See_Comment [Automated [employer] ssage] The system which generated this result transmitted reference range: 0.0 - 10.0 /100 WBCs. The reference range was not used to interpret this result as normal/abnormal. NRBC x10^3 (test code = 4030671387) <0.01 See_Comment [Automated messa ge] The system which generated this result transmitted reference range: 10*3/?L. The reference range was not used to interpret this result as normal/abnormal. GRAN MAT (NEUT) % (test code = 770-8) 58.4 % IMM GRAN % (test code = 3642322484) 0.50 % LYMPH % (test code = 736-9) 30.5 % MONO % (test code = 5905-5) 7.5 % EOS % (test code = 713-8) 2.2 % BASO % (test code = 706-2) 0.9 % GRAN MAT x10^3(ANC) (test code = 2321828629) 5.75 10*3/uL 1.99-6.95 IMM GRAN x10^3 (test code = 5655211523) 0.05 10*3/uL 0.00-0.06 LYMPH x10^3 (test code = 731-0) 3.00 10*3/uL 1.09-3.23 MONO x10^3 (test code = 742-7) 0.74 10*3/uL 0.36-1.02 EOS x10^3 (test code = 711-2) 0.22 10*3/uL 0.06-0.53 BASO x10^3 (test code = 704-7) 0.09 10*3/uL 0.01-0.09 Lab Interpretation (test code = 03891-9) [facility]normal [facility] HospitalCOMP[facility] METABOLIC PANEL (80262)2020-09-08 23:50:00* Test Item Value Reference Range Interpretation Comme nts NA (test code = 3348857614) 139 mmol/L 135-145 K (test code = 0543166416) 4.1 mmol/L 3.5-5 CL (test code = 4640430080) 107 mmol/L 98-108 CO2 TOTAL (test code = 0431280054) 22 mmol/L 23-31 L AGAP (test code = 2319867986) 2-16 BUN (test code = 5522993617) 12 mg/dL 7-23 GLUCOSE (test code = 3034090794) 115 mg/dL 70-110 H CREATININE (test code = 6523094123) 0.54 mg/dL 0.6-1.25 L TOTAL BILI (test code = 1698969227) 0.3 mg/dL 0.1-1.1 CALCIUM (test code = 3354022867) 9.3 mg/dL 8.6-10.6 T PROTEIN (test code = 5094287785) 7.6 g/dL 6.3-8.2 ALBUMIN (test code = 6791947127) 4.3 g/dL 3.5-5 ALK PHOS (test code = 2127657046) 80 U/L 34-122 ALTv (test code = 1742-6) 21 U/L 5-50 AST(SGOT) (test code = 2957841088) 21 U/L 13-40 eGFR Calculation (Non-) (test code = 0559441088) mL/min/1.73m2 eGFR Calculation () (test code = 9110026237) mL/min/1.73m2 LAURIE (test code = LAURIE) Association [...] imaging tests). Lab Interpretation (test code = 45650-3) [facility]normal [facility]2020-[facility] 23:50:00* Test Item Value Reference Range Interpretation Comme nts LIPASE (test code = 5008491675) 68 U/L 0-220 Lab Interpretation (test cod e = 37820-8) Normal [facility] WITH [id number] 23:22:00* Test Item Value Reference Range Interpretation [...] 34.1 g/dL 31.2-35 RDW-SD (test code = 37478-9) 40.8 fL 38.5-51.6 RDW-CV (test code = 788-0) 12.5 % 12.1-15.4 PLT (test code = 777-3) See_Comment [Automated messa ge] The system which generated this result transmitted reference range: 150 - 328 10*3/?L. The reference range was not used to interpret this result as normal/abnormal. MPV (test code = 48321-3) 9.1 fL 9.8-13 L NRBC/100 WBC (test code = 3370734666) See_Comment [Automated [employer] ssage] The system which generated this result transmitted reference range: 0.0 - 10.0 /100 WBCs. The reference range was not used to interpret this result as normal/abnormal. NRBC x10^3 (test code = 4516862660) <0.01 See_Comment [Automated messa ge] The system which generated this result transmitted reference range: 10*3/?L. The reference range was not used to interpret this result as normal/abnormal. GRAN MAT (NEUT) % (test code = 770-8) 59.0 % IMM GRAN % (test code = 4846352954) 0.60 % LYMPH % (test code = 736-9) 31.3 % MONO % (test code = 5905-5) 6.6 % EOS % (test code = 713-8) 1.9 % BASO % (test code = 706-2) 0.6 % GRAN MAT x10^3(ANC) (test code = 5982285804) 5.85 10*3/uL 1.99-6.95 IMM GRAN x10^3 (test code = 5506922603) 0.06 10*3/uL 0-0.06 LYMPH x10^3 (test code = 731-0) 3.10 10*3/uL 1.09-3.23 MONO x10^3 (test code = 742-7) 0.65 10*3/uL 0.36-1.02 EOS x10^3 (test code = 711-2) 0.19 10*3/uL 0.06-0.53 BASO x10^3 (test code = 704-7) 0.06 10*3/uL 0.01-0.09 Lab Interpretation (test code = 06858-5) [facility]normal [facility] W [id number] 17:21:17CT Abdomen and Pelvis with intravenous contrast. [...] fluid inthe abdomen or in the pelvis.2. Hepatomegaly.[facility]. METABOLIC PANEL (37301)2020-09-06 16:39:00* Test Item Value Reference Range Interpretation Comme nts NA (test code = 0836943918) 138 mmol/L 135-145 K (test code = 6565890375) 4.2 mmol/L 3.5-5 CL (test code = 2564114672) 103 mmol/L 98-108 CO2 TOTAL (test code = 0876479021) 25 mmol/L 23-31 AGAP (test code = 7484247641) 2-16 BUN (test code = 8840582917) 17 mg/dL 7-23 GLUCOSE (test code = 9151689442) 124 mg/dL 70-110 H CREATININE (test code = 5852053974) 0.95 mg/dL 0.6-1.25 TOTAL BILI (test code = 0011251049) 0.4 mg/dL 0.1-1.1 CALCIUM (test code = 3603090876) 9.7 mg/dL 8.6-10.6 T PROTEIN (test code = 4486269817) 7.9 g/dL 6.3-8.2 ALBUMIN (test code = 7563269941) 4.5 g/dL 3.5-5 ALK PHOS (test code = 7378414667) 75 U/L 34-122 ALTv (test code = 1742-6) 28 U/L 5-50 AST(SGOT) (test code = 6568428310) 23 U/L 13-40 eGFR Calculation (Non-) (test code = 0049383710) mL/min/1.73m2 eGFR Calculation () (test code = 0997988150) mL/min/1.73m2 LAURIE (test code = LAURIE) Association [...] imaging tests). Lab Interpretation (test code = 25803-3) [facility]normal [facility]2020-[facility] 16:39:00* Test Item Value Reference Range Interpretation Comme nts LIPASE (test code = 4188438663) 70 U/L 0-220 Lab Interpretation (test cod e = 63835-3) Normal [facility] HospitalMAGNESIUM2020-11-18 16:39:00* Test Item Value Reference Range Interpretation Comme nts MAGNESIUM (test code = 6053550173) 1.9 mg/dL 1.7-2.4 Lab Interpretation (test cod e = 81690-9) Normal [facility] HospitalLactic Acid Whole [id number] 16:38:00* Test Item Value Reference Range Interpretation Comme nts LACTIC ACID (test code = 6035547692) 1.51 mmol/L [facility] WITH [id number] 16:20:00* Test Item Value Reference Range Interpretation [...] 32.8 g/dL 31.2-35 RDW-SD (test code = 99383-7) 42.2 fL 38.5-51.6 RDW-CV (test code = 788-0) 12.6 % 12.1-15.4 PLT (test code = 777-3) See_Comment [Automated messa ge] The system which generated this result transmitted reference range: 150 - 328 10*3/?L. The reference range was not used to interpret this result as normal/abnormal. MPV (test code = 45131-6) 9.3 fL 9.8-13 L NRBC/100 WBC (test code = 5749430240) See_Comment [Automated me ssage] The system which generated this result transmitted reference range: 0.0 - 10.0 /100 WBCs. The reference range was not used to interpret this result as normal/abnormal. NRBC x10^3 (test code = 8480036979) <0.01 See_Comment [Automated messa ge] The system which generated this result transmitted reference range: 10*3/?L. The reference range was not used to interpret this result as normal/abnormal. GRAN MAT (NEUT) % (test code = 770-8) 64.9 % IMM GRAN % (test code = 5518411014) 0.50 % LYMPH % (test code = 736-9) 25.0 % MONO % (test code = 5905-5) 7.5 % EOS % (test code = 713-8) 1.3 % BASO % (test code = 706-2) 0.8 % GRAN MAT x10^3(ANC) (test code = 5975068475) 5.99 10*3/uL 1.99-6.95 IMM GRAN x10^3 (test code = 6361381587) 0.05 10*3/uL 0-0.06 LYMPH x10^3 (test code = 731-0) 2.31 10*3/uL 1.09-3.23 MONO x10^3 (test code = 742-7) 0.69 10*3/uL 0.36-1.02 EOS x10^3 (test code = 711-2) 0.12 10*3/uL 0.06-0.53 BASO x10^3 (test code = 704-7) 0.07 10*3/uL 0.01-0.09 Lab Interpretation (test code = 41091-7) Abnormal [facility]. METABOLIC PANEL (64240)2020-08-30 10:29:00* Test Item Value Reference Range Interpretation Comme nts NA (test code = 0397486901) 139 mmol/L 135-145 K (test code = 9576450001) 4.7 mmol/L 3.5-5 CL (test code = 9100831088) 105 mmol/L 98-108 CO2 TOTAL (test code = 1681155181) 24 mmol/L 23-31 AGAP (test code = 3172714382) 2-16 BUN (test code = 0109677986) 21 mg/dL 7-23 GLUCOSE (test code = 1340377386) 109 mg/dL 70-110 CREATININE (test code = 3493144800) 0.99 mg/dL 0.6-1.25 TOTAL BILI (test code = 8918133525) 0.4 mg/dL 0.1-1.1 CALCIUM (test code = 5964608202) 9.4 mg/dL 8.6-10.6 T PROTEIN (test code = 0166123561) 7.4 g/dL 6.3-8.2 ALBUMIN (test code = 8700766536) 4.2 g/dL 3.5-5 ALK PHOS (test code = 3677104175) 68 U/L 34-122 ALTv (test code = 1742-6) 33 U/L 5-50 AST(SGOT) (test code = 4730896812) 28 U/L 13-40 eGFR Calculation (Non-) (test code = 5118851123) mL/min/1.73m2 eGFR Calculation () (test code = 9076220570) mL/min/1.73m2 LAURIE (test code = LAURIE) Association [...] or urine or abnormalities in imaging tests). [facility] WITH [id number] 09:50:00* Test Item Value Reference Range Interpretation [...] 32.4 g/dL 31.2-35 RDW-SD (test code = 20556-8) 43.6 fL 38.5-51.6 RDW-CV (test code = 788-0) 13.0 % 12.1-15.4 PLT (test code = 777-3) See_Comment [Automated message] The system which generated this result transmitted reference range: 150 - 328 10*3/?L. The reference range was not used to interpret this result as normal/abnormal. MPV (test code = 73060-4) 10.0 fL 9.8-13 NRBC/100 WBC (test code = 4401180862) See_Comment [Automated message] The system which generated this result transmitted reference range: 0.0 - 10.0 /100 WBCs. The reference range was not used to interpret this result as normal/abnormal. NRBC x10^3 (test code = 4398269617) <0.01 See_Comment [Automated message] The system which generated this result transmitted reference range: 10*3/?L. The reference range was not used to interpret this result as normal/abnormal. GRAN MAT (NEUT) % (test code = 770-8) 80.1 % IMM GRAN % (test code = 5608707201) 0.50 % LYMPH % (test code = 736-9) 12.5 % MONO % (test code = 5905-5) 6.5 % EOS % (test code = 713-8) 0.1 % BASO % (test code = 706-2) 0.3 % GRAN MAT x10^3(ANC) (test code = 6334807866) 12.09 10*3/uL 1.99-6.95 H IMM GRAN x10^3 (test code = 8450285089) 0.08 10*3/uL 0-0.06 H LYMPH x10^3 (test code = 731-0) 1.89 10*3/uL 1.09-3.23 MONO x10^3 (test code = 742-7) 0.98 10*3/uL 0.36-1.02 EOS x10^3 (test code = 711-2) <0.03 0.06-0.53 L BASO x10^3 (test code = 704-7) 0.04 10*3/uL 0.01-0.09 Lab Interpretation (test code = 62731-2) Abnormal [facility] HospitalHEPAT[facility] FUNCTION PANEL (90353) (ALB,T.PRO,BILI T,BU/BC,ALT,AST,ALK PHOS)2020-08-28 21:15:00* Test Item Value Reference Range Interpretation Comme nts TOTAL BILI (test code = 7214272063) 0.6 mg/dL 0.1-1.1 BILI UNCON (test code = 6934155375) 0.4 mg/dL 0.1-1.1 BILI CONJ (test code = 2081191402) 0.0 mg/dL 0-0.3 T PROTEIN (test code = 3911225757) 7.2 g/dL 6.3-8.2 ALBUMIN (test code = 1213204426) 3.9 g/dL 3.5-5 ALK PHOS (test code = 9806426770) 65 U/L 34-122 ALTv (test code = 1742-6) 20 U/L 5-50 AST(SGOT) (test code = 1988952856) 25 U/L 13-40 Lab Interpretation (test cod e = 57108-0) Normal [facility] ABDOMEN [id number] 18:22:30 Hepatomegaly with moderate hepatic steatosis. Cholelithiasis [...] sign which could be related to stone. [facility] 1 [id number] 14:32:06No acute cardiopulmonary abnormality. Preliminary Report Dictated [...] have reviewed this study andagree with theabove report.[facility] HospitalBasi Metabolic Panel (NA, K, CL, CO2, GLUCOSE, BUN, CREATININE, CA) 2020-08-28 11:39:00* Test Item Value Reference Range Interpretation Comme nts NA (test code = 3759326223) 137 mmol/L 135-145 K (test code = 9371467337) 3.9 mmol/L 3.5-5 CL (test code = 8888925964) 104 mmol/L 98-108 CO2 TOTAL (test code = 4578346457) 28 mmol/L 23-31 AGAP (test code = 4789653938) 2-16 BUN (test code = 9223898860) 15 mg/dL 7-23 GLUCOSE (test code = 4232234440) 96 mg/dL 70-110 CREATININE (test code = 1510899829) 0.68 mg/dL 0.6-1.25 CALCIUM (test code = 8782069130) 9.2 mg/dL 8.6-10.6 eGFR Calculation (Non-) (test code = 1676932310) mL/min/1.73m2 eGFR Calculation () (test code = 2167594707) mL/min/1.73m2 LAURIE (test code = LAURIE) Association [...] or urine or abnormalities in imaging tests). [facility] W WO [id number] 19:39:221. ?Diffuse bladder wall thickening is likely due to underdistention.However, correlation with urinalysis is recommended to evaluate forcystitis/CT. 2. ?No acute findings in the abdomen or pelvis otherwise noted.Specifically, no appendicitis or diverticulitis. 3. ?Diffuse fatty infiltration of the liver. Preliminary Report Dictated by Resident: Irfan Luis IVahid MD., have reviewed this study and agree [...] reviewed this study and agree with theabove report.[facility] 2020-08-27 19:34:00* Test Item Value Reference Range Interpretation Comme [facility] POCT GLU (test code = 7659570289) 95 mg/dL 70-110 Lab Interpretation (test cod e = 16016-5) [facility] [id number] 19:12:00* Test Item Value Reference Range Interpretation Comme [facility] TROPONIN I (test code = 7807329578) <0.012 See_Comment [Automated message] The system which [...] biotin. ? Lab Interpretation (test code = 43250-2) [facility]2020-08-27 14:42:00* Test Item Value Reference Range Interpretation Comme nts POCT GLU (test code = 3361045224) 99 mg/dL 70-110 Lab Interpretation (test cod e = 64486-8) [facility] [id number] 13:09:00* Test Item Value Reference Range Interpretation Comme nts TROPONIN I (test code = 8562554238) <0.012 See_Comment [Automated message] The system which [...] biotin. ? Lab Interpretation (test code = 36063-9) [facility] (76265)(TOTAL CHOLESTEROL, TRIGLYCERIDES, HDL)2020-08-27 08:31:00* Test Item Value Reference Range Interpretation Comme nts CHOL (test code = 8140878224) 208 mg/dL 120-200 H HDL (test code = 9629625791) 28 mg/dL >40 L HDLC RATIO (test code = 5811170599) See_Comment H [Automated [employer]] The system which generated this result transmitted reference range: <=5.0. The reference range was not used to interpret this result as normal/abnormal. TRIG (test code = 5508896318) 351 mg/dL 30-170 H LDL CHOL (test code = 79166-2) 110 mg/dL See_Comment [Automated [employer]] The system which generated this result transmitted reference range: <=160. The reference range was not used to interpret this result as normal/abnormal. VLDL (test code = 8127946544) 70 mg/dL 5-60 H Lab Interpretation (test code = 74967-5) Abnormal [place] [facility] HospitalTHYROID STIMULATING BXAWPIO8851-53-76 08:00:00 * Test Item Value Reference Range Interpretation Comme nts TSH (test code = 2078305809) See_Comment L Biotin has been reported to cause a negative bias, interpret results relative to patient's use of biotin. [Automated message] The system which generated this result transmitted reference range: 0.45 - 4.70 mIU/L. The reference range was not used to interpret this result as normal/abnormal. Lab Interpretation (test code = 21046-2) [facility] (ID NOW RAPID TESTING)2020-08-27 07:03:00* Test Item Value Reference Range Interpretation Comme nts SARS-CoV-2 Rapid ID NOW (test code = 39286-9) Not Detected Not Detected LAURIE (test code = LAURIE) ID NOW COVID-19 As say is an isothermal nucleic acid amplification test intended for the qualitative detection of nucleic acid from SARS-CoV-2 viral RNA in nasopharyngeal (LETTER OF CREDIT CLERK) specimens. It is used under Emergency Use [...] clinically indicated. Lab Interpretation (test code = 02916-9) [facility] / [facility] - DRUG SCREEN FPZDRE3006-73-35 06:58:00* Test Item Value Reference Range Interpretation Comme nts BENZO U (test code = 8995752336) Negative Negative HORACIO U (test code = 8222713236) Negative Negative AMPHET (test code = 2429214621) Negative Negative THC (test code = 5738291843) Negative Negative METHADONE (test code = 4213881242) Negative Negative Meth U (test code = 2174925759) Negative Negative OPIATES (test code = 7509734114) Negative Negative Cocaine Metabolite (test code = 9254919498) Negative Negative PROPOXY (test code = 5434063106) Negative Negative Tric U (test code = 2096780472) Negative Negative PCP (test code = 8718362722) Negative Negative OXYCOD (test code = 1622575290) Negative Negative LAURIE (test code = LAURIE) [...] legal testing). Lab Interpretation (test code = 19347-4) Normal [facility] HospitalUrinalysis2020-11-08 06:51:00* Test Item Value Reference Range Interpretation Comme nts APPEARANCE (test code = 8977474416) Clear Clear COLOR (test code = 7931176447) Yellow Yellow PH (test code = 2134949110) 4.8-8.0 SP GRAVITY (test code = 3155809922) 1.003-1.030 GLU U QUAL (test code = 0179512336) Normal Normal BLOOD (test code = 3980509474) Negative Negative KETONES (test code = 7108252148) 20 mg/dL Negative A PROTEIN (test code = 2887-8) Negative Negative UROBILIN (test code = 3554604995) Normal Normal BILIRUBIN (test code = 3204733068) Negative Negative NITRITE (test code = 0474837365) Negative Negative LEUK KENNY (test code = 7674102075) Negative Negative RBC/HPF (test code = 3982564607) See_Comment [Automated [employer]] The system which generated this result transmitted reference range: 0 - 3 HPF. The reference range was not used to interpret this result as normal/abnormal. WBC/HPF (test code = 4275439315) See_Comment [Automated [employer]] The system which generated this result transmitted reference range: 0 - 5 HPF. The reference range was not used to interpret this result as normal/abnormal. BACTERIA (test code = 6604649387) Negative Negative MUCOUS (test code = 1531751472) Slight Negative LPF A Lab Interpretation (test code = 75778-0) Abnormal [facility] HospitalTroponin H2524-48-36 06:45:00* Test Item Value Reference Range Interpretation Comme nts TROPONIN I (test code = 7335803858) <0.012 See_Comment [Automated message] The system which [...] biotin. ? Lab Interpretation (test code = 27367-1) Normal [facility] HospitalETHANOL2020-11-08 06:34:00* Test Item Value Reference Range Interpretation Comme nts ALCOHOL (test code = 9851455003) 14 mg/dL LAURIE (test code = LAURIE) <10 Imyoafkr70-587 Toxic>100 Depression of TIRE FABRICATOR>400 Fatalities Reported [facility] HospitalBasic Metabolic Panel (NA, K, CL, CO2, GLUCOSE, BUN, CREATININE, CA)2020-08-27 06:33:00* Test Item Value Reference Range Interpretation Comme nts NA (test code = 4855543923) 137 mmol/L 135-145 K (test code = 6816211377) 3.6 mmol/L 3.5-5 CL (test code = 6992494387) 102 mmol/L 98-108 CO2 TOTAL (test code = 8277716997) 26 mmol/L 23-31 AGAP (test code = 7003853602) 2-16 BUN (test code = 5947481626) 13 mg/dL 7-23 GLUCOSE (test code = 8404649570) 119 mg/dL 70-110 H CREATININE (test code = 3523558261) 0.86 mg/dL 0.6-1.25 CALCIUM (test code = 2886817503) 9.8 mg/dL 8.6-10.6 eGFR Calculation (Non-) (test code = 5181278880) mL/min/1.73m2 eGFR Calculation () (test code = 5105299370) mL/min/1.73m2 LAURIE (test code = LAURIE) Association [...] imaging tests). Lab Interpretation (test code = 39889-4) Abnormal [facility] HospitalHepatic Function Panel (ALB, T.PRO, BILI T, BU/BC, ALT, AST, ALK PHOS)2020-08-27 06:33:00* Test Item Value Reference Range Interpretation Comme nts TOTAL BILI (test code = 2762169819) 0.3 mg/dL 0.1-1.1 BILI UNCON (test code = 9445089428) 0.2 mg/dL 0.1-1.1 BILI CONJ (test code = 5566542357) 0.0 mg/dL 0-0.3 T PROTEIN (test code = 2310618225) 7.8 g/dL 6.3-8.2 ALBUMIN (test code = 0486070899) 4.5 g/dL 3.5-5 ALK PHOS (test code = 7005829939) 71 U/L 34-122 ALTv (test code = 1742-6) 26 U/L 5-50 AST(SGOT) (test code = 7091282612) 26 U/L 13-40 Lab Interpretation (test cod e = 20708-7) Normal [facility] HospitalLipase Bowpo9144-28-25 06:33:00* Test Item Value Reference Range Interpretation Comme nts LIPASE (test code = 8883576241) 77 U/L 0-220 Lab Interpretation (test cod e = 30020-4) Normal [facility] HospitalaPTT2020-11-08 06:19:00* Test Item Value Reference Range Interpretation Comme nts APTT Patient (test code = 3173-2) See_Comment [Automated message] The system which generated this result transmitted reference range: 23 - 38 Seconds. The reference range was not used to interpret this result as normal/abnormal. LAURIE (test code = LAURIE) The [facility] patient population mean normal value for aPTT is 30 seconds. Lab Interpretation (test code = 58675-3) Normal [facility] HospitalProthrombin Time (PT) / VRI6314-27-52 06:17:00 * Test Item Value Reference Range Interpretation Comme nts PROTIME PATIENT (test code = 5964-2) See_Comment [Automated [employer]] The system which generated this result transmitted reference range: 12.0 - 14.7 Seconds. The reference range was not used to interpret this result as normal/abnormal. INR (test code = 6301-6) Normal INR <1.1; Warfarin Therapeutic range 2.0 to 3.0 or 2.5 to 3.5, depending upon the indications. Lab Interpretation (test code = 04690-0) Normal [facility] HospitalCBC with Amkkjpxlmvuw2247-08-14 06:07:00* Test Item Value Reference Range Interpretation Comme nts WBC (test code = 6690-2) See_Comment [Automated [employer]] The system which generated this result transmitted reference range: 4.20 - 10.70 10*3/?L. The reference range was not used to interpret this result as normal/abnormal. RBC (test code = 789-8) See_Comment [Automated [employer]] The system which generated this result transmitted [...] 32.8 g/dL 31.2-35 RDW-SD (test code = 84855-6) 42.9 fL 38.5-51.6 RDW-CV (test code = 788-0) 12.7 % 12.1-15.4 PLT (test code = 777-3) See_Comment [Automated messa ge] The system which generated this result transmitted reference range: 150 - 328 10*3/?L. The reference range was not used to interpret this result as normal/abnormal. MPV (test code = 42394-0) 9.1 fL 9.8-13 L NRBC/100 WBC (test code = 9694450814) See_Comment [Automated [employer]age] The system which generated this result transmitted reference range: 0.0 - 10.0 /100 WBCs. The reference range was not used to interpret this result as normal/abnormal. NRBC x10^3 (test code = 6872758086) <0.01 See_Comment [Automated messa ge] The system which generated this result transmitted reference range: 10*3/?L. The reference range was not used to interpret this result as normal/abnormal. GRAN MAT (NEUT) % (test code = 770-8) 52.4 % IMM GRAN % (test code = 5691786487) 0.50 % LYMPH % (test code = 736-9) 37.8 % MONO % (test code = 5905-5) 6.2 % EOS % (test code = 713-8) 2.3 % BASO % (test code = 706-2) 0.8 % GRAN MAT x10^3(ANC) (test code = 3769499035) 4.33 10*3/uL 1.99-6.95 IMM GRAN x10^3 (test code = 8940165760) 0.04 10*3/uL 0-0.06 LYMPH x10^3 (test code = 731-0) 3.13 10*3/uL 1.09-3.23 MONO x10^3 (test code = 742-7) 0.51 10*3/uL 0.36-1.02 EOS x10^3 (test code = 711-2) 0.19 10*3/uL 0.06-0.53 BASO x10^3 (test code = 704-7) 0.07 10*3/uL 0.01-0.09 Lab Interpretation (test code = 00991-0) Abnormal [facility] HospitalTROPONIN O2705-01-05 04:41:00* Test Item Value Reference Range Interpretation Comme nts TROPONIN I (test code = 2671709118) 0.000 ng/mL See_Comment [Automated message] The system [...] biotin. ? Lab Interpretation (test code = 80800-4) Normal [facility] HospitalADC / [facility] - DRUG SCREEN REMQXH5004-40-26 03:46:00* Test Item Value Reference Range Interpretation Comme nts BENZO U (test code = 6324609203) Negative Negative HORACIO U (test code = 0400522826) Negative Negative AMPHET (test code = 9674934107) Negative Negative THC (test code = 5874265241) Negative Negative METHADONE (test code = 0015623101) Negative Negative Meth U (test code = 3698807755) Negative Negative OPIATES (test code = 5035786677) Presumptive Positive Negative A Cocaine Metabolite (test code = 8203836217) Negative Negative PROPOXY (test code = 3942118368) Negative Negative Tric U (test code = 0192160520) Negative Negative PCP (test code = 7501433270) Negative Negative OXYCOD (test code = 2610860928) Negative Negative LAUREI (test code = LAURIE) Urine Drug Cutoff [...] legal testing). Lab Interpretation (test code = 44334-2) Abnormal [facility] HospitalD-XYXDW7698-71-45 03:29:00* Test Item Value Reference Range Interpretation Comments D-DIMER (test code = 4875746409) <0.27 See_Comment [Automated message] The system which [...] a diagnosis. Lab Interpretation (test code = 72773-7) Normal [facility] HospitalLIPASE2020-09-21 02:07:00* Test Item Value Reference Range Interpretation Comme nts LIPASE (test code = 6472003354) 58 U/L 0-220 Lab Interpretation (test cod e = 48317-7) Normal [facility] HospitalXR CHEST 1 QC2204-47-21 01:44:02No acute cardiopulmonary abnormality. Preliminary Report Dictated [...] reviewed this study and agree with theabove report.[facility] TROPONIN A5769-22-12 01:40:00* Test Item Value Reference Range Interpretation Comme nts TROPONIN I (test code = 0920727051) 0.000 ng/mL See_Comment [Automated message] The system [...] biotin. ? Lab Interpretation (test code = 39349-6) Normal [facility] HospitalPROTHROMBIN TIME / JKG8659-10-68 01:39:00* Test Item Value Reference Range Interpretation Comme nts PROTIME PATIENT (test code = 5964-2) See_Comment [Automated [employer]] The system which generated this result transmitted reference range: 12.0 - 14.7 Seconds. The reference range was not used to interpret this result as normal/abnormal. INR (test code = 6301-6) Normal INR <1.1; Warfarin Therapeutic range 2.0 to 3.0 or 2.5 to 3.5, depending upon the indications. Lab Interpretation (test code = 04871-2) Normal [facility] HospitalCOVID-19 (ID NOW RAPID TESTING)2020-07-10 01:36:00* Test Item Value Reference Range Interpretation Comme [facility] SARS-CoV-2 Rapid ID NOW (test code = 82409-1) Not Detected Not Detected LAURIE (test code = LAURIE) ID NOW COVID-19 As say is an isothermal nucleic acid amplification test intended for the qualitative detection of nucleic acid from SARS-CoV-2 viral RNA in nasopharyngeal (LETTER OF CREDIT CLERK) specimens. It is used under Emergency Use [...] clinically indicated. Lab Interpretation (test code = 99776-5) Normal [facility]. METABOLIC PANEL (41514)2020-07-10 01:29:00* Test Item Value Reference Range Interpretation Comme nts NA (test code = 2091755651) 136 mmol/L 135-145 K (test code = 2137623832) 3.4 mmol/L 3.5-5 L CL (test code = 5552065118) 98 mmol/L 98-108 CO2 TOTAL (test code = 5471846932) 26 mmol/L 23-31 AGAP (test code = 5891902849) 2-16 BUN (test code = 1321101118) 16 mg/dL 7-23 GLUCOSE (test code = 0752869516) 165 mg/dL 70-110 H CREATININE (test code = 3636928665) 0.94 mg/dL 0.6-1.25 TOTAL BILI (test code = 9962799187) 0.4 mg/dL 0.1-1.1 CALCIUM (test code = 1242643095) 9.7 mg/dL 8.6-10.6 T PROTEIN (test code = 9112052846) 8.2 g/dL 6.3-8.2 ALBUMIN (test code = 9638864462) 4.4 g/dL 3.5-5 ALK PHOS (test code = 1520897147) 77 U/L 34-122 ALTv (test code = 1742-6) 31 U/L 5-50 AST(SGOT) (test code = 1048793052) 26 U/L 13-40 eGFR Calculation (Non-) (test code = 3908438748) mL/min/1.73m2 eGFR Calculation () (test code = 4589641750) mL/min/1.73m2 LAURIE (test code = LAURIE) Association [...] imaging tests). Lab Interpretation (test code = 36432-5) Abnormal [facility] WITH KCMA5234-73-07 01:11:00* Test Item Value Reference Range Interpretation Comme nts WBC (test code = 6690-2) See_Comment [Automated [employer]] The system which generated this result transmitted reference range: 4.20 - 10.70 10*3/?L. The reference range was not used to interpret this result as normal/abnormal. RBC (test code = 789-8) See_Comment [Automated [employer]] The system which generated this result transmitted [...] 34.0 g/dL 31.2-35 RDW-SD (test code = 50369-3) 42.6 fL 38.5-51.6 RDW-CV (test code = 788-0) 13.0 % 12.1-15.4 PLT (test code = 777-3) See_Comment [Automated messa ge] The system which generated this result transmitted reference range: 150 - 328 10*3/?L. The reference range was not used to interpret this result as normal/abnormal. MPV (test code = 22193-2) 9.5 fL 9.8-13 L NRBC/100 WBC (test code = 9527167711) See_Comment [Automated [employer]age] The system which generated this result transmitted reference range: 0.0 - 10.0 /100 WBCs. The reference range was not used to interpret this result as normal/abnormal. NRBC x10^3 (test code = 7147267756) <0.01 See_Comment [Automated [employer]] The system which generated this result transmitted reference range: 10*3/?L. The reference range was not used to interpret this result as normal/abnormal. GRAN MAT (NEUT) % (test code = 770-8) 65.5 % IMM GRAN % (test code = 0769139795) 0.70 % LYMPH % (test code = 736-9) 26.1 % MONO % (test code = 5905-5) 5.7 % EOS % (test code = 713-8) 1.2 % BASO % (test code = 706-2) 0.8 % GRAN MAT x10^3(ANC) (test code = 8248690942) 6.62 10*3/uL 1.99-6.95 IMM GRAN x10^3 (test code = 3966397841) 0.07 10*3/uL 0-0.06 H LYMPH x10^3 (test code = 731-0) 2.64 10*3/uL 1.09-3.23 MONO x10^3 (test code = 742-7) 0.58 10*3/uL 0.36-1.02 EOS x10^3 (test code = 711-2) 0.12 10*3/uL 0.06-0.53 BASO x10^3 (test code = 704-7) 0.08 10*3/uL 0.01-0.09 Lab Interpretation (test code = 48800-3) Abnormal [facility] Notes Date/Time Note Provider Source 2024-02-04 14:36:04 7LbiZR6mBjxb03Jd18NRDVylQJ6AEEIpmA1w4 ND/THzHxo/KrvmrDFzG7OcOss545123-57-86 T14:36:04 Pt discharged with diagnosis of generalized abdominal pain and N/V. Printed and verbal instructions reviewed with and given to patient. No new prescriptions given for this visit. Pt verbalized understanding of teaching and recommended follow-up. Denies questions or concerns at this time. Pt ambulatory at discharge. Appears in no apparent distress. No ataxia noted. 65152-3Txgeehafo department ZzxnTU9288-96-83M90:36:32[facility] NoteTXT1.2.840.643219.1.13.104.2.7.2. 856534|[id number] for patient sihn40998-3XpenLVKESBAPNDEJnmvaflhn C-CDA narrative icri953443548Rupol N Dewoody RNUTMBCHINLE [facility]PRE[facility] - [address] GjmzCdnzpucjoDrbwjjwxeINRY7966885172I WCAFYRMEVMVFXPOUYONGR2504-91-06U66:36 :321.2.840.292847.1.72.3.15|1.2.840.1 60698.1.13.104.2.7.2.727879_[id number] 2 Iris Ferguson RN [facility] 2024-02-04 13:30:00 lwkqKXSUz8OFzpMzijFqX/4yZYlWZTdATjgKV OJ7ZSxRuvLzfUsxgm6EyykWmr305090-28-75 T13:30:00 Report from Korey LAZO. 12426-0Knxlgxatt department DuofMR5043-38-83Q48:44:41Emergen department NoteTXT1.2.840.712276.1.13.104.2.7.2. 744599|[id number] for patient bqwh99967-3ZxmwEDLKCICSIUUMxrbxjeyd C-CDA narrative erui071077391Apfnrf R Potter RN[address] MofrGjuvlwxqgWuooskdggVJRA2018556636G NAFEOKFISJKJWAETIEFYT7399-03-17G99:44 :411.2.840.709107.1.72.3.15|1.2.840.1 93215.1.13.104.2.7.2.727879_[id number] 6 Belkys Corrigan RN [facility] 2024-02-04 10:46:14 XKF3BgngF7VN0KMQ2d3Znq9ScocTlerSYoFEo p7KxNlgMSZU4BYh+luZW3w5MJUv1860-07-84 T10:46:14 Pt arrived via private car with RLQ abd pain starting 2-3 days ago abd becoming worse 78257-6Tfzozopcz department Triage ncfxNW0952-93-18C50:48:58[facility] centercy [facility] Triage noteTXT1.2.840.148784.1.13.104.2.7.2. 536429|[id number] for patient mfms55275-8Ovihiskrl department NoteLNNARRATIVEFormatted C-CDA narrative [id number] L Korey RN[id number] NLOGLDIROEAXCJJZVOJXV9018-10-52G88:48 :581.2.840.414603.1.72.3.15|1.2.840.1 22673.1.13.104.2.7.2.727879_[id number] 8 Shalini Knapp Korey [facility] 2023-12-28 04:24:01 Q6Kg1Fb6bMzbG8+IjwVvtrjnmiMcDCNO6B+2h 1FxcmTmq9xc7oxr7X6q81EBk9M61314-89-98 T04:24:01 Pt given printed and verbal discharge instructions regarding epigastric pain, encouraged smaller meals.Pt verbalized understanding of instructions,pt encouraged to follow up with pcp and or GIAdvised to seek medical attention for new/prolonged/worsening of symptoms,Awake, alert oriented, resp reg unlabored, skin w/d, pt leaving in no apparent distress, 65001-4Hnvebpizj department KerfLI8059-55-00K58:24:37[facility] NoteTXT1.2.840.244607.1.13.104.2.7.2. 887339|[id number] for patient mzha26810-3EqbmGJOSVNMBXOYXurrjyhqt C-CDA narrative tnbu378907840Mkjvvu R Shehadeh RN[id number] NIQNOSIISOIQMQCPJHLXO9554-99-08R84:24 :371.2.840.337499.1.72.3.15|1.2.840.1 24858.1.13.104.2.7.2.727879_[id number] 3 Cynthia Pirtchett Monika LAZO [facility] 2023-12-28 03:42:02 oC9SN+AC5RuNGPMo4ISXE/02cq+oVlEO8UsDh i0lAFehsjGxXca5OHaKSdZsFp084945-84-79 T03:42:02 Pt reports the GI cocktail did not relieve his discomfort. Pt states he can feel his food coming up his esophagus. Pt is requesting medication for pain. 70013-5Ywtehpuwv department FdquBG4374-07-21S95:43:54Emergency department NoteTXT1.2.840.999459.1.13.104.2.7.2. 050583|[id number] for patient orpq41569-6JivnKWHGCOALEEQQksvmwtgy C-CDA narrative otir620330739Rqjposf A Diaz RN[address]Jjr[id number] HQUQUJMHISMSDCAZRWXRK2833-45-10Y97:43 :541.2.840.891596.1.72.3.15|1.2.840.1 29373.1.13.104.2.7.2.727879_[id number] 4 Vira Huang RN [facility] 2023-12-28 03:07:24 Xfby59aznMLZW57Zfg+oSuB/TGDxulBOf4CYA rteMt2JsmwCbItj3phVCegPR4gV2439-64-33 T03:07:24 Patient ambulatory to ED c/o waking up around 0100 this AM to food feeling like it was coming back up from his stomach to mouth. Patient last ate around 1900 and went to bed around 2200. Patient states having headache, denies N/V/D. Tylenol taken around 1900 for headache. 39489-5Xdrnotigw department Triage apnbTL0468-04-43A33:14:37[facility] Triage noteTXT1.2.840.119641.1.13.104.2.7.2. 000940|[id number] for patient obtu10717-3Wksdahngz department NoteLNNARRATIVEFormatted C-CDA narrative bjvq540935874Pjvbqz-Epwcm McInnis RN[address] AnklGznecmpuyYpbwmzkoyZYMD1325399469G PSMBAPKFBTPCRSBTSOZNE1991-45-02Q23:14 :371.2.840.441410.1.72.3.15|1.2.840.1 23462.1.13.104.2.7.2.727879_[id number] 8 Sarina Graham RN [facility] 2023-12-28 03:06:00 /7/fHTad/HcLgaSWiPpEv07U8AJ2XI1KjP +RhilOHEJbvvdzK4btMwUxoX/oG8041-43-31 T03:06:00 [facility] Emergency Department NotePatient Name: Marysol Lazo of : 1975 48 year old maleTreatment Room: Room/bed info not foundMedical Record Number: [id number] Care Physician: PATIENT DOES NOT HAVE A PCPPatient Escorted by: Friend [6]Mode of Arrival: Personal means [1]EMS Treatment Prior to ED Arrival:LIVESTOCK RANCHER treatment: Medication (comment)LIVESTOCK RANCHER treatment comments: TylenolTravel and Exposure Screening:SymptomsDoes patient [...] palpitations/SOB.History provided by: Patient and medical recordsLanguage 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 [place]Testicular surgeryTONGUE TO LIP [...] 20 mgFirst Provider Eval:ED EventsDate/Time Event User Suobwgyk13/10/24 0309 Medical Screening Begins CHAPITO CONTRERAS MD --12/28/23 030 First Provider Evaluation CHAPITO CONTRERAS MD --ED [...] needed for Cough for up to 20 doses.YAGPFGVSSI-YBEIICIDJACEH-YZSF 50-325-40 MG TABLET Take 1 tablet by [...] on fileFollow-up:Contact information for follow-upAllison Sanchez MDSpecialty: [facility]PITALGASTROENTEROLOGYCHIN[facility] HOSPITALS AND NZZPDIN[address] RLF353MS [address] [address]Enajl: [phone] signed by:Chapito Contreras MD12/28/23 0414 58293-8Vxjflpxct Emergency department LbpzZL2580-89-75R75:14:14Physician Emergency department NoteTXT1.2.840.497371.1.13.104.2.7.2. 360379|[id number] for patient eoai58849-2Jivhovesz department NoteLNNARRATIVEFormatted C-CDA narrative [id number] DSLGBCRBVWDLELEFRZSVX4201-33-80D04:14 :141.2.840.607637.1.72.3.15|1.2.840.1 32719.1.13.104.2.7.2.727879_[id number] 3 [facility] 2023-11-06 02:36:40 ZllBKjXxtOkIHbtqwIalrrpPg2CK1M204eHhE vt/SH7gKRAhg7bXv0bpQEsyCYzY2062-09-06 T02:36:40 Pt given printed and verbal discharge [...] with steady gait, in no apparent distress 12673-8Pxgjmpdqx department WgzfVW5529-59-95S59:37:39[facility] NoteTXT1.2.840.854106.1.13.104.2.7.2. 925733|[id number] for patient xbeu22767-7IicyWLQYSFFDBAGQjxnoondg C-CDA narrative hbds499987248Ivhvqww A Diaz RN[id number] GGYCYGCMQUFEHRRUBMCCM8150-90-17T75:37 :391.2.840.995488.1.72.3.15|1.2.840.1 52722.1.13.104.2.7.2.727879_[id number] 8 Vira Huang [facility] 2023-11-05 23:47:32 EzK0JZsOfjPPMUdW523v1dKn5Ajs8REpBjmyn OEXrxGa1HvOT9DyRNVPxeHXYwuO2859-09-15 T23:47:32 Patient ambulatory to ED c/o abd pain that started yesterday. Patient went to PCP today and patient states no prescriptions were given. Patient states vomiting twice LIVESTOCK RANCHER. Last medication taken was Tylenol tonight.Patient is tearful in triage. 11398-7Hufrgnzpj department Triage jadaEL3346-72-57E15:52:16[facility] Triage noteTXT1.2.840.218921.1.13.104.2.7.2. 223628|[id number] for patient dhul03007-3Rplexsmab department NoteLNNARRATIVEFormatted C-CDA narrative [id number]-Rwfls McInnis RN[address] [id number] QJZWFPRDMQJHLFLQSOQHA2213-63-77J35:52 :161.2.840.985884.1.72.3.15|1.2.840.1 55441.1.13.104.2.7.2.727879_[id number] 3 Sarina Graham RN [facility] 2023-11-01 04:18:58 mLvwGOozUp06lH+dHgMkoikt89WjkaCJlexnx fHvK9TVRL1/zk4Q0vQvM3gGAnpX7834-52-00 T04:18:58 Pt given printed and verbal discharge [...] with steady gait, in no apparent distress 19422-0Axferfnbr department KiulSZ9059-23-56B24:19:28Emergency department NoteTXT1.2.840.069545.1.13.104.2.7.2. 983182|[id number] for patient prxb99261-9EdopZBGMLCMGSEGNjoafqsss C-CDA narrative [address] Hh[id number] FMGRQQJRARLMMISVXPHRC4196-71-05J07:19 :281.2.840.678224.1.72.3.15|1.2.840.1 01913.1.13.104.2.7.2.727879_[id number] 6 [facility] 2023-10-31 23:33:52 xMggO+nt2bt6RNWnpN4Xl9LB1D6a+zv3eJkg9 GwQ/lIZpIyMcL8VoFZqDT8AorQp7332-08-97 T23:33:52 Pt arrived c/o RLQ/epigastric abdominal pain, vomiting, and headache. Pain began yesterday.PMH: Gallbladder removed 2/3 years ago 17686-2Wzvgosasi department Triage nqnpTP4966-57-32O25:37:25[facility] Triage noteTXT1.2.840.525738.1.13.104.2.7.2. 952698|[id number] for patient nfgr45699-4Cpxmfiwiw department NoteLNNARRATIVEFormatted C-CDA narrative text[address] Co[id number] HBHHFGEIIDHFMRIYTDAQN3182-79-14V70:37 :251.2.840.481681.1.72.3.15|1.2.840.1 12256.1.13.104.2.7.2.727879_[id number] 8 [facility] 2023-10-31 23:28:00 fckPJYjq9JeHbBaXJPdDOiiglj4mVkxMGJ0Qi /2aRcJmNEfAPMuv4IvP0rOejQ8d8220-26-69 T23:28:00 [facility] Emergency Department NotePatient Name: Marysol Lazo of : 1975 48 year old maleTreatment Room: TX1/LL5Liqbpbw Record Number: [id number] Care Physician: PATIENT DOES NOT HAVE A PCPPatient Escorted by: Family [5]Mode of Arrival: Personal means [1]EMS Treatment Prior to ED Arrival:LIVESTOCK RANCHER treatment: NoneTravel and Exposure Screening:SymptomsDoes patient have [...] CHOLECYSTECTOMY N/A 08/29/2020Surgeon: Vaishali Vicente MD; [facility] [place]Testicular surgeryTONGUE TO LIP [...] No obvious mass, no hernia sac, testicles-nl. [place], nontenderMusculoskeletal:General: Normal range of motion.Skin:General: Skin is [...] identified in the abdomen or pelvis.RL: 460AF: 30258Amrzoebnbrhxbj signed by Chantal Lee MD, PhD at 11/01/2023 3:00 AMLab Results:Lab ResultsCOMP. METABOLIC PANEL (06990) - AbnormalResult Value Ref RangeNA 138 135 [...] U/LAST(SGOT) 33 13 - 40 U/LeGFR 118.8 mL/min/1.91x1BWR WITH DIFF - AbnormalWBC 11.54 (*) 4.20 [...] needed for Cough for up to 20 doses.JPEBHBHMIJ-UAIHGLXEFCJWN-RRMB 50-325-40 MG TABLET Take 1 tablet by [...] fileFollow-up:Electronically signed by:Jose Francisco Walters MD11/01/23 0332 28361-2Kwycxsrmw Emergency department JyxpBR1172-22-21J16:32:28Physician Emergency department NoteTXT1.2.840.462742.1.13.104.2.7.2. 759061|[id number] for patient dpmv57155-2Kwydfbyqo department NoteLNNARRATIVEFormatted C-CDA narrative textUT[address] StreetTl[id number] KLHMIXBRQKWIIXXUUTOUS2703-21-31B88:32 :281.2.840.460307.1.72.3.15|1.20.1 38722.1.13.104.2.7.2.727879_[id number] 1 [facility] 2023-10-23 02:26:31 JwWsjS7X67A49wBIn+cSrRh8l31GoiXb5Obx9 0iPvrIPAH3IDK5rSgD3YW6eflZZ9971-67-46 T02:26:31 Pt given printed and verbal discharge [...] with steady gait, in no apparent distress. 66867-2Ippmuttig department PuaxBN0164-21-39D74:31:16Emergency department NoteTXT1.2.840.810922.1.13.104.2.7.2. 174270|[id number] for patient nkfz69500-9JzucUGUKORJBSKKZefaurmgw C-CDA narrative [id number] D Roman RNUT65 Garza [id number] FATCOJYIGTJHPKTDSXPXZ3347-58-99H68:31 :161.2.840.630565.1.72.3.15|1.20.1 74589.1.13.104.2.7.2.727879_[id number] 9 More Zamudio RN [facility] 2023-10-22 23:44:24 oao1u7ysGdFgUKkFLlFVrt1ZBhoLYQmb1JWYP QVisZ0S0O8EAWLfFfTgvbPeqkTs3270-29-40 T23:44:24 CC: Pt reports RLQ abd pain and 2 episodes of vomiting since morning. Pt has BM this morning was normal.PMHx: HTN, DM8Xaddh, alert, oriented, resp reg unlabored, skin warm, color appropriate for race, moves all ext without difficulty, amb with steady gait 74453-5Kirfcakum department Triage tnbkQU9035-92-66G64:45:27[facility] Triage noteTXT1.2.840.330110.1.13.104.2.7.2. 570774|[id number] for patient vocd57028-9Omyubjbex department NoteLNNARRATIVEFormatted C-CDA narrative textUT[address] Spf[id number] ARVBFBVHKXEUZWNSKQOOI4449-84-10P35:45 :271.2.840.784810.1.72.3.15|1.2.840.1 20582.1.13.104.2.7.2.727879_[id number] 5 [facility] 2023-10-22 23:33:00 1icV5z8SgUgV2rvUplZhcSOIRe4ahygnREFlr sj9lXPiAkrsweQIBAaxTWmiVIn91449-78-46 T23:33:00 [facility] Emergency Department NotePatient Name: Marysol Lazo of : 1975 48 year old maleTreatment Room: TX2/LG6Vnvtsct Record Number: [id number] Care Physician: PATIENT DOES NOT HAVE A PCPPatient Escorted by: Family [5]Mode of Arrival: Personal means [1]EMS Treatment Prior to ED Arrival:LIVESTOCK RANCHER treatment: Medication (comment)LIVESTOCK RANCHER treatment comments: 2 tylenol 2 hrs agoTravel [...] 3History provided by: Medical records and patientLanguage sed middle school teacher used: NoAbdominal PainPain location: RLQPain quality: sharpPain [...] CHOLECYSTECTOMY N/A 08/29/2020Surgeon: Vaishali Vicente MD; [facility] [place]Testicular surgeryTONGUE TO LIP [...] in the abdomen or pelvis.Normal appendix.RL: 460AF: 90373Fflicgqtilqxhi signed by Chantal Lee MD, PhD at 10/23/2023 1:44 AMLab Results:Lab ResultsCOMP. METABOLIC PANEL (83108) - AbnormalResult Value Ref RangeNA 140 135 [...] U/LAST(SGOT) 33 13 - 40 U/LeGFR 107.0 mL/min/1.35p4DWR WITH DIFF - AbnormalWBC 11.85 (*) 4.20 [...] mg tabletFirst Provider Eval:ED EventsDate/Time Event User Ezgawgbt02/04/24 2353 Medical Screening Begins CHAPITO CONTRERAS MD --10/23/23 235 First Provider Evaluation CHAPITO CONTRERAS MD --ED [...] needed for Cough for up to 20 doses.ZVONSQGMYC-AKABORJSNCZDA-RCVS 50-325-40 MG TABLET Take 1 tablet by [...] on fileFollow-up:Contact information for follow-upOmaira Chen MDSpecialty: IM-XPAPKKXCJXPNPZQR[address] [place] [address]Cmjsi: [phone] signed by:Chapito Contreras MD10/23/23 0220 73150-1Udvhnncgq Emergency department QrlwLC1076-52-38W51:20:23Physian Emergency department NoteTXT1.2.840.605575.1.13.104.2.7.2. 898424|[id number] for patient sshm22833-0Kotjcpidq department NoteLNNARRATIVEFormatted C-CDA narrative text[address] StreetCgjdFpgiucymfIejgleosnMFGH8898757463X RYQAVAWLUSZEPWYXSDMWK5277-00-50V92:20 :231.2.840.726499.1.72.3.15|1.2.840.1 75364.1.13.104.2.7.2.727879_[id number] 7 [facility] 2023-07-07 05:55:19 04pm+dWNh/5UK//E1fPoI7MjV0h+V0LaUaoLB z07fUi8v0FyWPEHj8BGu6WwcD4Q0664-92-04 T05:55:19 Awake, alert oriented X4, respiratory even [...] ER noted upon dischargePt ambulated to the [facility] servicesby with steady gait 28762-6Ykxbgfkdr department XizaUM1762-18-76Z30:56:11[facility] NoteTXT1.2.840.784893.1.13.104.2.7.2. 072445|[id number] for patient bkrr99196-8YfsyYJMSAOIEAO62 [address] [id number] CJQITEPAFPLJYHUGMBLCM6355-86-37V08:56 :111.2.840.696501.1.72.3.15|1.2.840.1 60106.1.13.104.2.7.2.727879_[id number] 5 [facility] 2023-07-07 03:54:59 lFigdMM4WvzJ/Zcm9/1+SB8nnjI94KmkUm80h VaqCOByOCYJIwR/ELETRO0U0+F/2023-07-07 T03:54:59 Pt states that he last night his blood pressure was running high and he has headache. Pt states pressure was 190/112 approx 40 mins block captain. Pt state that he took his enalapril around 2300 last night. 96397-8Tneyqqctg department Triage atthZW7837-29-19X43:57:11[facility] Triage noteTXT1.2.840.930967.1.13.104.2.7.2. 364337|[id number] for patient axue03327-4Ktbaixpxu department [id number] PSGIDLUDKXSCNVMOWIZZY8017-34-19I13:57 :111.2.840.162495.1.72.3.15|1.2.840.1 43920.1.13.104.2.7.2.727879_[id number] 6 [facility] 2023-07-07 03:49:00 EaWd78vgBdGkK4HwWGZ69dlGjzRco2qtWActY uLtY/k+tOvcXsoLugG2KvH78T4m0047-79-84 T03:49:00 [facility] Emergency Department NotePatient Name: Marysol Lazo of : 1975 47 year old maleTreatment Room: LA5/[address] Record Number: [id number] Care Physician: PATIENT DOES NOT HAVE A PCPPatient Escorted by: Self [9]Mode of Arrival: Personal means [1]EMS Treatment Prior to ED Arrival:LIVESTOCK RANCHER treatment: None Travel and Exposure Screening:SymptomsDoes patient [...] traumaHistory provided by: Patient and medical recordsLanguage sed middle school teacher used: No HypertensionSeverity: ModerateOnset quality: SuddenDuration: 2 hoursTiming: SporadicChronicity: ChronicTime since last dose of antihypertensive: 2 hoursNotable LIVESTOCK RANCHER blood pressures: 198/112Context: normal sodium, not caffeine, [...] N/A 08/29/2020 Surgeon: Vaishali Vicente MD; Location: [facility] OR Location OTHER Testicular surgery [...] display Lab Results:Lab Results COMP. METABOLIC PANEL (88547) - Abnormal Result Value Ref Range NA [...] Encounter Procedures TROPONIN I COMP. METABOLIC PANEL (27280) LIPASE, SERUM CBC WITH DIFF URINALYSIS Orders Placed This Encounter Medications ketorolac (TORADOL) injection 30 mg metoclopramide HCl (REGLAN) injection 10 mg kssjjxjxmy-xctdqpptsuxdv-lzsb 50-325-40 mg tablet First Provider Eval:ED Events [...] Discharge Medications:Patient's Medications START taking these medications WNSXDOUSMH-MTCLHOHRLGQSQ-BNGW 50-325-40 MG TABLET Take 1 tablet by [...] for follow-up Ulises Carter MD Specialty: PN-NEUROLOGY [facility] AND [address] [address] Electronically signed by: Chapito Contreras MD07/07/23 0553 33991-9Pnwjjxjrz Emergency department DgifJT3411-57-90C94:53:28Physician Emergency department NoteTXT1.2.840.046494.1.13.104.2.7.2. 776236|[id number] for patient dbhe60157-6Nmaknwiyw department NoteLN[address] [id number] IVYUWFCJGGBJJBZSJLHWB3726-85-83J16:53 :281.2.840.355928.1.72.3.15|1.2.840.1 86913.1.13.104.2.7.2.727879_[id number] 1 [facility] 2023-05-25 22:36:27 jZArnWSyB+p3tI6rXtgmymVQLSmfLQgeVgaLR m2ORHvsObayc6+few3K5YyeWhfQ5543-17-70 T22:36:27 Pt given printed and verbal discharge [...] with steady gait, in no apparent distress 17128-9Irrnzhyzm department XfsjMF0476-25-85A83:37:47[facility] department NoteTXT1.2.840.999202.1.13.104.2.7.2. 810568|[id number] for patient axaw75684-6ZywfCX540721347Blgkxis A Diaz RNUT65 [address] [id number] JWFPTGQATVXWEKGEKBYNG0374-70-32Z47:37 :471.2.840.060310.1.72.3.15|1.2.840.1 74001.1.13.104.2.7.2.727879_[id number] 9 Vira Huang RN [facility] 2023-05-25 17:15:02 FDRnYxpqPwS1ky72SZfTfGp3bhs3AkNYECNCz JCWyr4WDGJ5cAzUSY6W9672FlMZ3415-15-98 T17:15:02 Pt arrived via private car with c/o chest pain that started about 3 hours LIVESTOCK RANCHER, EKG done in triage, PA assessing pt at this time. 40806-4Jnledwhgf department Triage oovvDC6838-09-51R04:20:33[facility] Triage noteTXT1.2.840.270273.1.13.104.2.7.2. 229328|[id number] for patient kara95362-0Aqwvzbmqk department [id number] L Barker RN[address] [id number] SJXNNGBVGHYBMBXLTBJNS8773-73-83P22:20 :331.2.840.003623.1.72.3.15|1.2.840.1 95658.1.13.104.2.7.2.727879_[id number] 0 Shalini Nair RN [facility]
[2024-03-09] MEDS ORDERED: METOCLOPRAMIDE 10 MG/2mL INJ ONE (20:55)
[2024-03-09] MEDS ORDERED: METHYLPREDNISOLONE 125 MG INJ ONE (20:55)
[2024-03-09] MEDS ORDERED: KETOROLAC 30 MG/ML INJ ONE (20:55)
[2024-03-09] MEDS ORDERED: DIPHENHYDRAMINE 50 MG/ML VIAL ONE (20:55)
[2024-03-09] MEDS ORDERED: FAMOTIDINE 20 MG/2 ML VIAL IV ONE (20:55)
[2024-03-09] MEDS ORDERED: NA CHLORIDE 0.9% 1,000 ML ONE (20:55)
[2024-03-09 21:09] LABS: Absolute Lymphocytes (CBC) 1.6 K/uL (0.7-4.9); Absolute Monocytes 1.1 K/uL (0.1-1.3); Absolute Neutrophil 8.4 K/uL (1.8-8.0); Basophils % 0.4 % (0-1.3); Eosinophils % 0.1 % (0-4.4); Hematocrit 43.3 % (39.6-49.0); Hemoglobin 14.4 g/dL (13.6-17.9); MCH 30.2 pg (27.0-35.0); MCHC 33.2 g/dL (32.0-36.0); MPV 7.8 fL (7.6-11.3); Monocytes % 9.7 % (3.3-12.3); Neutrophils % 75.8 % (41.7-73.7); Platelets 249 thou/uL (152-406); RBC Red Blood Cell Count 4.76 M/uL (4.33-5.43); Red Cell Distribution Width 13.7 % (12.1-15.2)
[2024-03-09 21:11] LABS: PT Prothrombin Time 13.2 SECONDS (9.5-12.5); Protime INR 1.21
--- NOTE | 2024-03-09 21:24 | RAD REPORT ---
EXAM DESCRIPTION: RADChest Single View03/09/2024 9:02 pm CLINICAL HISTORY: CHEST PAIN COMPARISON: Chest Single View dated 02/09/2024; Chest Single View dated 02/05/2024; Chest Single View dated 11/14/2023; Chest Single View dated 04/24/2021 TECHNIQUE: Portable AP view of the chest. FINDINGS: Decreased inspiratory effort limits evaluation. The lungs are clear. No pneumothorax or e ffusion. The cardiomediastinal contours are unremarkable. IMPRESSION: No acute cardiopulmonary process.
[2024-03-09 21:34] LABS: Albumin 3.3 g/dL (3.4-5.0); Albumin/Globulin Ratio 0.7 (1.1-1.8); Anion Gap 9.5 mEq/L (5.0-15.0); Bilirubin Direct 0.2 mg/dL (0-0.2); Bilirubin Indirect, Calculated 0.3 mg/dL (0.2-0.8); Bilirubin Total 0.5 mg/dL (0.2-1.0); Globulin 4.6 g/dL (2.3-3.5); Magnesium 2.1 mg/dL (1.6-2.4); Potassium 3.5 mEq/L (3.5-5.1); Protein, Total 7.9 g/dL (6.4-8.2)
[2024-03-09 21:50] LABS: Troponin High Sensitivity 65.3 pg/mL (<58.9)
--- NOTE | 2024-03-09 22:56 | ER ---
Nurse's Notes [facility] Name: Carrington Dumont Age: 48 yrs Sex: Male : 1975 Arrival Date: 03/09/2024 Time: 20:10 Bed 23 Private MD: Diagnosis: NSTEMI, Elevated Troponin, Anstable Angina ;Hypoxemia with hypoventilation, Presentation: 03/09 20:23 Chief complaint: Patient states: I took amoxicillin around 1 pm. I started having chest jb4 tightening and SOB and vomiting. It has been getting worse since. Coronavirus screen: At this time, the client does not indicate any symptoms associated with coronavirus-19. Ebola Screen: No symptoms or risks identified at this time. Onset: The symptoms/episode began/occurred gradually, today, 1pm. Anaphylaxis evaluation, the patient reports or I have noted the following symptoms which indicate a significant risk of anaphylaxis: chest pain shortness of breath. Initial Sepsis Screen: Does the patient meet any 2 criteria? HR > 90 bpm. Yes Does the patient have a suspected source of infection? No. Patient's initial sepsis screen is negative. Risk Assessment: Do you want to hurt yourself or someone else? Patient reports no desire to harm self or others. Onset of symptoms was March 09, 2024. Transition of care: patient was not received from another setting of care. 20:23 Method Of Arrival: Ambulatory jb4 20:23 Acuity: DAYANNA 2 jb4 Triage Assessment: 20:25 General: Appears in no apparent distress. uncomfortable, Behavior is calm, cooperative, jb4 appropriate for age. Pain: Complains of pain in chest. EENT: No signs and/or symptoms were reported regarding the EENT system. Neuro: Level of Consciousness is awake, alert, obeys commands, Oriented to person, place, time, situation. Cardiovascular: Patient's skin is warm and dry. Respiratory: Airway is patent Respiratory effort is even, unlabored, Respiratory pattern is regular, symmetrical. GI: No signs and/or symptoms were reported involving the gastrointestinal system. : No signs and/or symptoms were reported regarding the genitourinary system. Derm: Skin is intact, Skin is pink, warm \T\ dry. Musculoskeletal: Circulation, motion, and sensation intact. Range of motion: intact in all extremities. Historical: - Allergies: 20:25 PENICILLINS; jb4 - PMHx: 20:25 Hypothyroidism; Hypertension; jb4 - PSHx: 20:25 Cholecystectomy; Stented artery; jb4 - Immunization history:: Adult Immunizations up to date. - Infectious Disease History:: Denies. - Social history:: Smoking status: Patient reports the use of cigarette tobacco products, denies chronic smoking, but will smoke occasionally. - Family history:: not pertinent. Screenin/22 01:04 [facility] ED Fall Risk Assessment (Adult) History of falling in the last 3 months, jb4 including since admission No falls in past 3 months (0 pts) Confusion or Disorientation No (0 pts) Intoxicated or Sedated No (0 pts) Impaired Gait No (0 pts) Mobility Assist Device Used No (0 pt) Altered Elimination No (0 pt) Score/Fall Risk Level 0 - 2 = Low Risk Oriented to surroundings, Maintained a safe environment. Abuse screen: Denies threats or abuse. Nutritional screening: No deficits noted. Tuberculosis screening: No symptoms or risk factors identified. Assessment: 03/09 22:24 Reassessment: Pt is resting in bed with eyes closed, respirations are even and jb4 unlabored with no s/s of pain or distress noted. 23:46 General: refusing bipap. O2 at 2 LPM via NC applied. . me1 03/10 00:06 Reassessment: Patient appears in no apparent distress at this time. Patient and/or jb4 family updated on plan of care and expected duration. Pain level reassessed. Patient is alert, oriented x 3, equal unlabored respirations, skin warm/dry/pink. Pt is now more awake and alert, is now refusing bipap. 01:04 Reassessment: Patient appears in no apparent distress at this time. Patient and/or jb4 family updated on plan of care and expected duration. Pain level reassessed. Patient is alert, oriented x 3, equal unlabored respirations, skin warm/dry/pink. Vital Signs: 03/09 20:23 BP 115 / 97; Pulse 116; Resp 20; Pulse Ox 99% on R/A; Weight 109.5 kg; Height 5 ft. 8 jb4 in. ; Pain 10/10; 21:32 BP 131 / 71; Pulse 96; Resp 16; Temp 99.7(O); Pulse Ox 96% ; jb4 22:24 BP 134 / 56; Pulse 78; Resp 28; Pulse Ox 94% on R/A; jb4 03/10 00:00 BP 110 / 74; Pulse 80; Resp 20; Temp 98.7(O); Pulse Ox 95% on R/A; jb4 01:04 BP 97 / 54; Pulse 85; Resp 16; Pulse Ox 99% on 3 lpm NC; jb4 03/09 20:23 Body Mass Index 36.71 (109.50 kg, 172.72 cm) jb4 03/09 20:23 Pain Scale: Adult jb4 03/09 22:24 Pt is snoring. Reports having sleep apnea. jb4 [place] Coma Score: 22:49 Eye Response: spontaneous(4). Motor Response: obeys commands(6). Verbal Response: sp4 oriented(5). Total: 15. ED Course: 20:14 Patient arrived in ED. gm2 20:14 Jadiel Rome MD is Attending Physician. sp4 20:25 Triage completed. jb4 20:25 Arm band placed on right wrist. jb4 20:50 Troponin HS Sent. jb4 20:50 PT-INR Sent. jb4 20:50 NT PRO-BNP Sent. jb4 20:50 Magnesium Sent. jb4 20:50 LFT's Sent. jb4 20:50 CBC with Diff Sent. jb4 20:50 Basic Metabolic Panel Sent. jb4 21:02 XRAY Chest (1 view) In Process Unspecified. EDMS 22:24 Chava Hope, RN is Primary Nurse. jb4 22:53 EKG done, by ED staff, reviewed by Jadiel Rome MD. me1 22:55 Amauri Garrett MD is Hospitalizing Provider. sp4 03/10 01:04 Patient has correct armband on for positive identification. Bed in low position. Call jb4 light in reach. Side rails up X 1. Provided Education on: need for admit. 01:47 No provider procedures requiring assistance completed. Patient admitted, IV remains in jb4 place. Administered Medications: 03/09 20:51 Not Given (Other Intervention Used): ns 0.9% 1000 ml IV at 125 ml/hr continuous jb4 21:06 Drug: MethylPrednisoLONE IVP 125 mg IVP once Route: IVP; Site: right antecubital; jb4 21:06 Drug: Famotidine IVP 20 mg IVP once; dilute with 10 mL 0.9% NaCl; give over 2 minutes jb4 Route: IVP; Site: right antecubital; 21:06 Drug: diphenhydrAMINE IVP 50 mg IVP once Route: IVP; Site: right antecubital; jb4 21:06 Drug: Ketorolac IVP 30 mg IVP once Route: IVP; Site: right antecubital; jb4 21:06 Drug: metoCLOPramide IVP 10 mg IVP once; over 1 to 2 minutes Route: IVP; Site: right jb4 antecubital; 21:06 Drug: NS 0.9% IV 1000 ml IV at 1 bolus Per protocol; 1000 mL bolus Route: IV; Rate: 1 jb4 bolus; Site: right antecubital; 23:39 Follow up: Response: No adverse reaction; IV Status: Completed infusion me1 23:13 Drug: Enoxaparin Sub-Q 100 mg Sub-Q once Route: Sub-Q; Site: right upper abdomen; jb4 23:13 Drug: Aspirin PO Chewable Tablet 324 mg PO once; 81 mg tablets x 4 Route: PO; jb4 03/10 00:21 Drug: LevOfloxacin PO 750 mg PO once Route: PO; jb4 Outcome: 03/09 22:56 Decision to Hospitalize by Provider. 4 03/10 01:47 Admitted to Tele accompanied by nurse, via wheelchair, room 406, with chart, Report jb4 called to [facility] [place] Condition: stable Discharge instructions given to patient, Instructed on the need for admit, Demonstrated understanding of instructions, 01:47 Patient left the ED. jb4 Signatures: Dispatcher [employer] Chava Hu RN RN jb4 Jadiel Rome MD MD sp4 Miryam Valdes RN RN me1 Nora Goode 2
--- NOTE | 2024-03-09 22:56 | EDPHYS ---
Physician Documentation [facility] Name: Carrington Dumont Age: 48 yrs Sex: Male : 1975 Arrival Date: 03/09/2024 Time: 20:10 Bed 23 Private MD: ED Physician Jadiel Rome HPI: 03/09 20:15 This 48 yrs old Male presents to ER via Unassigned with complaints of Allergic sp4 Reaction, Vomiting. 22:49 48-year-old male presents with complaint of acute chest pain and also vomiting sp4 secondary to presumed reaction to Augmentin. Patient also complained of chest discomfort. Patient has history of coronary artery disease, morbid obesity, diabetes, hypertension, hyperlipidemia. Patient's last admission 02/06/2024 for NSTEMI with PCI to RCA. Patient's medications include aspirin, atorvastatin, metoprolol twice daily, clopidogrel daily, Tricor daily. . Additional medicines include irbesartan, levothyroxine, aspirin, atorvastatin, clopidogrel, fenofibrate. Historical: - Allergies: 20:25 PENICILLINS; jb4 - PMHx: 20:25 Hypothyroidism; Hypertension; jb4 - PSHx: 20:25 Cholecystectomy; Stented artery; jb4 - Immunization history:: Adult Immunizations up to date. - Infectious Disease History:: Denies. - Social history:: Smoking status: Patient reports the use of cigarette tobacco products, denies chronic smoking, but will smoke occasionally. - Family history:: not pertinent. ROS: 22:49 Constitutional: Negative for fever, chills, and weight loss, positive for vomiting, sp4 shortness of breath, and chest pain 22:49 All other systems are negative, Exam: 22:49 Constitutional: This is a well developed, well nourished patient who is awake, alert, sp4 and in no acute distress. Head/Face: Normocephalic, atraumatic. Eyes: Pupils equal round and reactive to light, extra-ocular motions intact. Lids and lashes normal. Conjunctiva and sclera are not injected. Cornea within normal limits. Periorbital areas with no swelling, redness, or edema. ENT: Nares patent. No nasal discharge, no septal abnormalities noted. Tympanic membranes are normal and external auditory canals are clear. Oropharynx with no redness, swelling, or masses, exudates, or evidence of obstruction, uvula midline. Mucous membranes moist. Neck: Trachea midline, no thyromegaly or masses palpated, and no cervical lymphadenopathy. Supple, full range of motion without nuchal rigidity, or vertebral point tenderness. Chest/axilla: Normal chest wall appearance and motion. Nontender with no deformity. No lesions are appreciated. Cardiovascular: Regular rate and rhythm with a normal S1 and S2. No gallops, murmurs, or rubs. Normal PMI, no JVD. No pulse deficits. Respiratory: Lungs have equal breath sounds bilaterally, clear to auscultation and percussion. No rales, rhonchi or wheezes noted. No increased work of breathing, no retractions or nasal flaring. Abdomen/GI: Soft, with normal bowel sounds. No distension or tympany. No guarding or rebound. No evidence of tenderness throughout. Back: No spinal tenderness. No costovertebral tenderness. Male : Normal genitalia with no discharge or lesions. Skin: Warm, dry with normal turgor. Normal color with no rashes, no lesions, and no evidence of cellulitis. MS/ Extremity: Pulses equal, no cyanosis. Neurovascular intact. Full, normal range of motion. Neuro: Awake and alert, GCS 15, oriented to person, place, time, and situation. Cranial nerves II-XII grossly intact. Motor strength 5/5 in all extremities. Sensory grossly intact. Psych: Awake, alert, with orientation to person, place and time. Behavior, mood, and affect are within normal limits 22:49 ECG was reviewed by the Attending Physician. EKG at 2024 includes sinus tachycardia at rate of 108 otherwise normal. 22:55 Repeat EKG at 2249 reveals sinus rhythm at a rate of 81 all overall normal EKG no ST sp4 elevation or depression no ectopy. Vital Signs: 20:23 BP 115 / 97; Pulse 116; Resp 20; Pulse Ox 99% on R/A; Weight 109.5 kg; Height 5 ft. 8 jb4 in. ; Pain 10/10; 21:32 BP 131 / 71; Pulse 96; Resp 16; Temp 99.7(O); Pulse Ox 96% ; jb4 22:24 BP 134 / 56; Pulse 78; Resp 28; Pulse Ox 94% on R/A; jb4 03/10 00:00 BP 110 / 74; Pulse 80; Resp 20; Temp 98.7(O); Pulse Ox 95% on R/A; jb4 01:04 BP 97 / 54; Pulse 85; Resp 16; Pulse Ox 99% on 3 lpm NC; 4 03/09 20:23 Body Mass Index 36.71 (109.50 kg, 172.72 cm) 4 03/09 20:23 Pain Scale: Adult [facility] 03/09 22:24 Pt is snoring. Reports having sleep apnea. jb4 [place] Coma Score: 22:49 Eye Response: spontaneous(4). Motor Response: obeys commands(6). Verbal Response: sp4 oriented(5). Total: 15. MDM: 20:15 Patient medically screened. sp4 22:49 ED course: [facility] - Findings: 1. Left main; diffuse 20% stenosis. 2. LAD; proximal segment sp4 is normal, mid segment 40% to 50%, mid to distal 50%, and distal focal 70% stenosis. Diagonal branches are with luminal irregularities. OPERATIVE REPORT 3. Left circumflex; moderate-size, proximal 50% and then mid 60%. OM branch has 50% proximally. 4. RCA; large and dominant. Proximal 50%, mid 99% stenosis, status post successful PCI as above. 5. Elevated LVEDP at 24 mmHg. Conclusion: 1. Critical mid RCA stenosis, which is the culprit for the [place], status post successful PCI as above. 2. Moderate coronary artery disease elsewhere. 3. Elevated LVEDP. Recommendation: 1. Aspirin, Plavix, high-dose statin. 2. Cardiac risk factor modification and diuretics as his LVEDP is very high. . 22:56 Data reviewed: vital signs, nurses notes, lab test result(s), EKG, radiologic studies, sp4 plain films. ED course: EXAM DESCRIPTION: RADChest Single View03/09/2024 9:02 pm CLINICAL HISTORY: CHEST PAIN COMPARISON: Chest Single View dated 02/09/2024; Chest Single View dated 02/05/2024; Chest Single View dated 11/14/2023; Chest Single View dated 04/24/2021 TECHNIQUE: Portable AP view of the chest. FINDINGS: Decreased inspiratory effort limits evaluation. The lungs are clear. No pneumothorax or effusion. The cardiomediastinal contours are unremarkable. IMPRESSION: No acute cardiopulmonary process.. 03/09 20:25 Order name: Basic Metabolic Panel; Complete Time: 22:28 sp4 03/09 20:25 Order name: CBC with Diff; Complete Time: 22:28 sp4 03/09 20:25 Order name: LFT's; Complete Time: 22:28 sp4 03/09 20:25 Order name: Magnesium; Complete Time: 22:28 sp4 03/09 20:25 Order name: NT PRO-BNP; Complete Time: 22:28 sp4 03/09 20:25 Order name: PT-INR; Complete Time: 22:28 sp4 03/09 20:25 Order name: Troponin HS; Complete Time: 22:28 4 03/09 22:31 Order name: Troponin High Sensitivity; Complete Time: 00:58 sp4 03/09 22:34 Order name: ABG; Complete Time: 00:12 sp4 03/09 23:58 Order name: C-Reactive Protein; Complete Time: 00:58 EDMS 03/10 00:21 Order name: Urinalysis w/ reflexes EDMS 03/10 00:21 Order name: Basic Metabolic Panel EDMS 03/10 00:21 Order name: Basic Metabolic Panel EDMS 03/10 00:21 Order name: Basic Metabolic Panel EDMS 03/10 00:21 Order name: CBC with Automated Diff EDMS 03/10 00:21 Order name: CBC with Automated Diff EDMS 03/10 00:21 Order name: CBC with Automated Diff EDMS 03/10 00:21 Order name: Magnesium EDMS 03/10 00:21 Order name: Magnesium EDMS 03/10 00:21 Order name: Magnesium EDMS 03/10 00:21 Order name: NT PRO-BNP EDMS 03/10 00:21 Order name: NT PRO-BNP EDMS 03/10 00:21 Order name: Troponin High Sensitivity EDMS 03/10 00:21 Order name: Troponin High Sensitivity EDMS 03/10 00:22 Order name: Troponin High Sensitivity EDMS 03/10 00:22 Order name: Troponin High Sensitivity EDMS 03/10 01:39 Order name: Hemoglobin A1c EDMS 03/09 20:25 Order name: XRAY Chest (1 view); Complete Time: 22:28 sp4 03/10 00:24 Order name: Echo with Doppler EDMS 03/10 00:24 Order name: Echo with Doppler EDMS 03/09 20:25 Order name: EKG; Complete Time: 20:26 sp4 03/09 22:31 Order name: EKG; Complete Time: 22:31 sp4 03/10 00:21 Order name: CONS Physician Consult EDCO 03/09 20:25 Order name: Cardiac monitoring; Complete Time: 20:37 sp4 03/09 20:25 Order name: EKG - Nurse/Tech; Complete Time: 20:37 sp4 03/09 20:25 Order name: IV Saline Lock; Complete Time: 20:50 sp4 03/09 20:25 Order name: Labs collected and sent; Complete Time: 20:50 sp4 03/09 20:25 Order name: O2 Per Protocol; Complete Time: 20:37 sp4 03/09 20:25 Order name: O2 Sat Monitoring; Complete Time: 20:37 sp4 03/09 22:31 Order name: EKG - Nurse/Tech; Complete Time: 22:53 sp4 EC:49 Rate is 108 beats/min. Rhythm is regular, Sinus tachycardia. QRS [place] is Normal. NC sp4 interval is normal. QRS interval is normal. QT interval is normal. No Q waves. T waves are Normal. No ST changes noted. Clinical impression: No evidence of ischemia. Interpreted by me. Reviewed by me. Administered Medications: 20:51 Not Given (Other Intervention Used): ns 0.9% 1000 ml IV at 125 ml/hr continuous jb4 21:06 Drug: MethylPrednisoLONE IVP 125 mg IVP once Route: IVP; Site: right antecubital; jb4 21:06 Drug: Famotidine IVP 20 mg IVP once; dilute with 10 mL 0.9% NaCl; give over 2 minutes jb4 Route: IVP; Site: right antecubital; 21:06 Drug: diphenhydrAMINE IVP 50 mg IVP once Route: IVP; Site: right antecubital; jb4 21:06 Drug: Ketorolac IVP 30 mg IVP once Route: IVP; Site: right antecubital; jb4 21:06 Drug: metoCLOPramide IVP 10 mg IVP once; over 1 to 2 minutes Route: IVP; Site: right jb4 antecubital; 21:06 Drug: NS 0.9% IV 1000 ml IV at 1 bolus Per protocol; 1000 mL bolus Route: IV; Rate: 1 jb4 bolus; Site: right antecubital; 23:39 Follow up: Response: No adverse reaction; IV Status: Completed infusion me1 23:13 Drug: Enoxaparin Sub-Q 100 mg Sub-Q once Route: Sub-Q; Site: right upper abdomen; jb4 23:13 Drug: Aspirin PO Chewable Tablet 324 mg PO once; 81 mg tablets x 4 Route: PO; jb4 03/10 00:21 Drug: LevOfloxacin PO 750 mg PO once Route: PO; jb4 Disposition Summary: 03/09/24 22:56 Hospitalization Ordered Notes: Hospitalization Status: Inpatient Admission sp4 Provider: Amauri [email or web address] Location: Telemetry/MedSurg (Inpatient) sp4 Condition: Stable sp4 Problem: new sp4 Symptoms: have improved sp4 Bed/Room Type: Standard sp4 Room Assignment: 406(03/10/24 00:32) rv1 Diagnosis - NSTEMI, Elevated Troponin, Anstable Angina sp4 - Hypoxemia with hypoventilation, sp4 Forms: - Medication Reconciliation Form sp4 - SBAR form sp4 - Leadership Thank You Letter sp4 Signatures: Dispatcher [employer] EDChava Lopez RN RN jb4 Giovanna Pugh rv1 Jadiel Rome MD MD sp4 Miryam Valdes RN me1 Corrections: (The following items were deleted from the chart) 03/09 20:26 20:26 BASIC METABOLIC PANEL+C.LAB.BRZ ordered. EDMS EDMS 20:26 20:26 CBC+H.LAB.BRZ ordered. EDMS EDMS 20:26 20:26 HEPATIC FUNCTION+C.LAB.BRZ ordered. EDMS EDMS 20:26 20:26 MAGNESIUM+C.LAB.BRZ ordered. EDMS EDMS 20:26 20:26 PROBNP+C.LAB.BRZ ordered. EDMS EDMS 20:26 20:26 PROTIME (+INR)+COAG.LAB.BRZ ordered. EDMS EDMS 20:26 20:26 Troponin High Sensitivity+C.LAB.BRZ ordered. EDMS EDMS 22:34 22:34 BiPap ([employer] Only)+RC.RAD.BRZ ordered. EDMS EDMS 23:57 22:34 C-REACTIVE PROTEIN+C.LAB.BRZ ordered. EDMS EDMS 03/10 00:32 03/09 22:56 sp4 rv1
[2024-03-09] MEDS ORDERED: ENOXAPARIN 100 MG/ML SYR SQ ONE (23:05)
[2024-03-09] MEDS ORDERED: ASPIRIN 81 MG CHEWABLE TABLET ONE (23:05)
[2024-03-10 00:02] LABS: Arterial Blood Carboxyhemoglob 1.8 % (0-1.5); Blood Gas Oxyhemoglobin 93.5 % (94-97); Blood Gas THB 14.9 g/dl (12-18); Blood O2 Saturation 97.2 % (92-98.5)
--- NOTE | 2024-03-10 00:15 | P.HP ---
Certification for Inpatient Patient admitted to: Observation <Nanette Kathleen - Last Filed: 03/10/24 04:39> Patient History Date of Service: 03/10/24 Reason for admission: Elevated troponin History of Present Illness: 48-year-old male past medical history of VT with recent PCI ,diabetes, obesity, hypertension, hypothyroidism, presented to the emergency room with chest pain. He reports taking Augmentin, reported allergy, reported shortness of breath. And chest pain. He reports a recent heart cath with (PCI.02/06/2024) patient placed on BiPAP in the emergency room O2 sats improved to -100%. ER evaluation sinus rhythm at a rate of 81 all overall normal EKG no ST elevation or depression no ectopy. BP 115 / 97; Pulse 116; Resp 20; Pulse Ox 99% on R/A; Weight 109.5 kg; Height 5 ft. 8 Pain 10/10; chest x-ray IMPRESSION: No acute cardiopulmonary process. Plan to admit for unstable angina, NSTEMI, with cardiology to consult, dyspnea, with cardiology to consult, Lovenox 1 mg/kg twice daily. Recent prior heart cath January 2024 : [facility] - Findings: 1. Left main; diffuse 20% stenosis. 2. LAD; proximal segment is normal, mid segment 40% to 50%, mid to distal 50%, and distal focal 70% stenosis. Diagonal branches are with luminal irregularities. OPERATIVE REPORT 3. Left circumflex; moderate-size, proximal 50% and then mid 60%. OM branch has 50% proximally. 4. RCA; large and dominant. Proximal 50%, mid 99% stenosis, status post successful PCI as above. 5. Elevated LVEDP at 24 mmHg. Conclusion: 1. Critical mid RCA stenosis, which is the culprit for the [place], status post successful PCI as above. 2. Moderate coronary artery disease elsewhere. 3. Elevated LVEDP. Recommendation: 1. Aspirin, Plavix, high-dose statin. 2. Cardiac risk factor modification and diuretics as his LVEDP is very high. DD: - Past Medical/Surgical History Diabetic: Yes -: DM -: HTN -: HYPOTHYROIDISM -: [place], PCI, 02/10 -: RAMIRO -: PCI - Family History Mother -: Hypertension Father -: Hypertension, Diabetes - Social History Alcohol use: No CD- Drugs: No Caffeine use: Yes <Nanette Kathleen - Last Filed: 03/10/24 04:39> Date of Service: 03/10/24 <Amauri Garrett Marcie - Last Filed: 03/10/24 12:57> Allergies Penicillins Allergy (Intermediate, Verified 03/10/24 01:47) Hives/Rash Home Medications: Irbesartan 150 mg PO DAILY 02/05/24 Levothyroxine Sodium [Synthroid] 1 tab PO DAILY 02/05/24 Aspirin Chewable [Aspirin Chewable*] 81 mg PO DAILY #30 tab.chew 02/07/24 Atorvastatin Calcium [Lipitor] 40 mg PO BEDTIME #30 tab 02/07/24 Clopidogrel Bisulfate [Plavix*] 75 mg PO DAILY #30 tab 02/07/24 Fenofibrate [Tricor*] 160 mg PO DAILY #30 tab 02/07/24 Metoprolol Tartrate 12.5 mg PO BID #30 tab 02/07/24 Review of Systems Per HPI <FrannieNanette - Last Filed: 03/10/24 04:39> Physical Examination - Physical Exam General: Alert, In no apparent distress, Mild distress, Obese, Other (On BiPAP) HEENT: Atraumatic, Normocephalic Neck: Supple, 2+ carotid pulse no bruit Respiratory: Clear to auscultation bilaterally, Normal air movement Cardiovascular: No edema, Normal pulses Capillary refill: <2 Seconds Gastrointestinal: Normal bowel sounds, Soft and benign Musculoskeletal: No clubbing, No swelling Integumentary: No rashes, No breakdown Neurological: Normal speech, Normal strength at 5/5 x4 extr - Studies Laboratory Data (last 24 hrs) 03/09/24 03/09/24 03/09/24 20:45 20:45 20:45 WBC 11.10 H Hgb 14.4 Hct 43.3 Plt Count 249 PT 13.2 H INR 1.21 Sodium 131 L Potassium 3.5 BUN 13 Creatinine 0.97 Glucose 141 H Magnesium 2.1 Total Bilirubin 0.5 AST 23 ALT 38 Alkaline Phosphatase 74 <Nanette Kathleen - Last Filed: 03/10/24 04:39> - Studies Laboratory Data (last 24 hrs) 03/09/24 03/09/24 03/09/24 20:45 20:45 20:45 WBC 11.10 H Hgb 14.4 Hct 43.3 Plt Count 249 PT 13.2 H INR 1.21 Sodium 131 L Potassium 3.5 BUN 13 Creatinine 0.97 Glucose 141 H Magnesium 2.1 Total Bilirubin 0.5 AST 23 ALT 38 Alkaline Phosphatase 74 <Amauri Garrett Marcie - Last Filed: 03/10/24 12:57> Assessment and Plan - Plan Assessment plan Unstable angina Recent PCI January 2024 NSTEMI Shortness of breath Cardiology consult, n.p.o. after midnight Telemetry, trend troponins, Lovenox 1 mg/kg, aspirin, antilipid, as needed analgesics, antiemetics, BiPAP overnight wean Troponin initial 56, 56 5, 62.8, Echo ordered for the a.m. Leukocytosis Empiric antibiotics, Trend cultures, urine culture Allergic reaction to Augmentin elevated C-reactive protein Benadryl, prednisone p.o. Pepcid Diabetes unknown control Accu-Chek ACHS, sliding scale insulin Hypertension Hyperlipidemia Obesity Resume appropriate home meds Full code DVT Lovenox 1 mg/kg Diet n.p.o. after midnight Disposition Home independent prior Discharge Plan: Home - Advance Directives Does patient have a Living Will: No Does patient have a Durable POA for Healthcare: No - Code Status/Comfort Care Code Status: Full Code Critical Care: No Time Spent Managing Pts Care (In Minutes): 55 <Nanette Kathleen - Last Filed: 03/10/24 04:39> - Plan Pt seen and examined. I agree with the note by the CLIENT ACCOUNT REPRESENTATIVE. Pt is a 48yo male with past medical history of CAD s/p VT with recent PCI to RCA ,diabetes, obesity, hypertension, and hypothyroidism wh presents with chest pain. The chest pain is associated with SOB. Pt reports compliance with DAPT at home. On admission, lab studies show troponin 63. EKG shows no ST elevation or depression no ectopy. At bedside, pt reports chest pain. A/P: Chest pain: Will r/o ACS. Pt recently had PCI to the RCA last month. He reports compliance with DAPT at home. Consulted cardiology. Will continue therapeutic lovenox and aspirin. Troponin is 63 <- 62<- 56. Will keep him NPO for possible cath. May need to change plavixi to brilinta. Leukocytosis: Likely reactive. Will check CXR and UA. F/u bloo dcx. Continue empiric abx DM II: Continue accuchek, SSI and ADA diet Htn: Continue home med HLD: continue home med COde: full <Amauri Garrett - Last Filed: 03/10/24 12:57>
[2024-03-10] MEDS ORDERED: ONDANSETRON 4 MG/2 ML VIAL IV PRN (00:17)
[2024-03-10] MEDS ORDERED: levoFLOXacin 750 MG TAB ONE (00:18)
[2024-03-10 00:19] LABS: C-Reactive Protein 91.1 mg/L (<3.00)
[2024-03-10 00:20] LABS: Troponin High Sensitivity 62.8 pg/mL (<58.9)
[2024-03-10] MEDS: HYDROMORPHONE HCL 2 MG/ML inj IV ONE (01:50)
[2024-03-10 02:07] LABS: Anion Gap 9.4 mEq/L (5.0-15.0); Magnesium 2.3 mg/dL (1.6-2.4); Potassium 4.4 mEq/L (3.5-5.1)
[2024-03-10] MEDS: FUROSEMIDE 40 MG/4 ML VIAL IV SCH (02:09)
[2024-03-10] MEDS: Levofloxacin 750mg IV 750 MG/150 ML BAG IV SCH (02:09)
[2024-03-10] MEDS: CLOPIDOGREL 75 MG TABLET PO ONE (02:09)
[2024-03-10 03:29] VITALS: BMI 36.7
[2024-03-10] MEDS: METOPROLOL TAR 25 MG TAB PO SCH (05:06)
[2024-03-10] MEDS: HYDROMORPHONE HCL 1 MG/ML INJ IV PRN (05:07)
[2024-03-10] MEDS: INSULIN REGULAR (HUMAN) 100 UNIT/ML SQ SCH ×2 (07:30→17:33)
[2024-03-10] MEDS: PANTOPRAZOLE 40MG TABLET PO SCH (07:30)
[2024-03-10 07:42] LABS: Absolute Lymphocytes (CBC) 0.9 K/uL (0.7-4.9); Absolute Monocytes 0.3 K/uL (0.1-1.3); Absolute Neutrophil 10.7 K/uL (1.8-8.0); Basophils % 0.4 % (0-1.3); Hematocrit 43.8 % (39.6-49.0); Hemoglobin 14.5 g/dL (13.6-17.9); Lymphocytes % 7.6 % (15.3-44.8); MCH 30.6 pg (27.0-35.0); MCV 92.6 fL (80-100); MPV 8.6 fL (7.6-11.3); Monocytes % 2.4 % (3.3-12.3); Neutrophils % 89.6 % (41.7-73.7); Platelets 253 thou/uL (152-406); RBC Red Blood Cell Count 4.73 M/uL (4.33-5.43); Red Cell Distribution Width 14.3 % (12.1-15.2)
[2024-03-10] MEDS ORDERED: SODIUM CHLORIDE 0.9% 10ML INJ IV PRN (08:29)
[2024-03-10] MEDS: ASPIRIN 325 MG TAB PO SCH (08:59)
[2024-03-10] MEDS: PANTOPRAZOLE 40 MG INJ IVP SCH (09:28)
[2024-03-10] MEDS: predniSONE 20 MG TAB PO SCH (09:28)
[2024-03-10] MEDS: ENOXAPARIN 100 MG/ML SYR SQ SCH (10:39)
--- NOTE | 2024-03-10 11:34 | RAD REPORT ---
EXAM DESCRIPTION: CTAngio Aorta For Dissection - 03/10/2024 8:45 am CLINICAL HISTORY: chest and abd pain COMPARISON: Abdomen Pelvis W Contrast dated 02/05/2024 TECHNIQUE: CTA of the chest, abdomen, and pelvis was performed. Reconstructions were performed. All CT scans are performed using dose optimization technique as appropriate and may include automated exposure control or mA/KV adjustment according to patient size. FINDINGS: Thorax: Chest Wall: No abnormal mass Lungs: No acute abnormality. Pleura: No effusions or pneumothorax. Laura/Mediastinum: No lymphadenopathy. Circumferential thickening of the distal esophagus . Aorta/Pulmonary Arteries: Unremarkable Heart: Mild cardiomegaly. Coronary artery calcifications. No pericardial effusion. Abdomen/Pelvis: Liver: Hepatic steatosis Biliary: Cholecystectomy Stomach: No significant focal abnormality. Duodenum: No significant focal abnormality. Pancreas: No significant abnormality. Spleen: No significant abnormality. Adrenal: Adrenal thickening but no discrete mass. Kidney/ureter: No hydronephrosis. No renal calculi. Retroperitoneum: No retroperitoneal adenopathy. Vascular: No aneurysm. Bowel: No significant focal abnormality. Normal appendix. Peritoneum: No ascites or free air. Small fat containing inguinal hernias. Bladder: Grossly unremarkable. Reproductive: No adnexal masses. Bones: No acute fracture. Other: n/a IMPRESSION: No aortic aneurysm or dissection. No pulmonary embolus. No acute findings within the nava st, abdomen, or pelvis. Thickened distal esophagus suggesting esophagitis. Endoscopy could better chay luate. This could be a source of chest pain. The patient also has coronary artery disease.
[2024-03-10 11:55] LABS: White Blood Cell Scan OK (OK)
[2024-03-10 11:56] LABS: Blood Morphology Comment NOT SEEN (NOT SEEN)
--- NOTE | 2024-03-10 17:39 | P.CNS ---
Date of Consult: 03/10/24 Chief Complaint: Elevated troponin History of Present Illness: Patient with PMH of CAD s/p recent PCI of RCA presented with chest pressure sensation that started yesterday, radiate to his left shoulder, no other cardiac symptoms. Allergies Penicillins Allergy (Intermediate, Verified 03/10/24 01:47) Hives/Rash Home Medications: Irbesartan 150 mg PO DAILY 02/05/24 Levothyroxine Sodium [Synthroid] 1 tab PO DAILY 02/05/24 Aspirin Chewable [Aspirin Chewable*] 81 mg PO DAILY #30 tab.chew 02/07/24 Atorvastatin Calcium [Lipitor] 40 mg PO BEDTIME #30 tab 02/07/24 Clopidogrel Bisulfate [Plavix*] 75 mg PO DAILY #30 tab 02/07/24 Fenofibrate [Tricor*] 160 mg PO DAILY #30 tab 02/07/24 Metoprolol Tartrate 12.5 mg PO BID #30 tab 02/07/24 - Past Medical/Surgical History Diabetic: Yes -: DM -: HTN -: HYPOTHYROIDISM -: [place], PCI, 02/10 -: RAMIRO -: PCI - Family History Mother Medical History: Hypertension Father Medical History: Hypertension, Diabetes - Social History Smoking Status: Current some day smoker Alcohol use: No CD- Drugs: No Caffeine use: Yes Place of Residence: Home Review of Systems 10-point ROS is otherwise unremarkable Physical Examination Temp Pulse Resp BP Pulse Ox 95.4 F L 81 18 135/65 97 03/10/24 16:00 03/10/24 16:00 03/10/24 16:00 03/10/24 16:00 03/10/24 16:00 General: Alert, In no apparent distress HEENT: Atraumatic, PERRLA, Mucous membr. moist/pink, EOMI, Sclerae nonicteric Neck: Supple, 2+ carotid pulse no bruit, No LAD, Without JVD or thyroid abnormality Respiratory: Clear to auscultation bilaterally, Normal air movement Cardiovascular: Regular rate/rhythm, Normal S1 S2 Gastrointestinal: Normal bowel sounds, No tenderness Musculoskeletal: No tenderness Integumentary: No rashes Neurological: Normal gait, Normal speech, Normal tone, Normal affect Lymphatics: No axilla or inguinal lymphadenopathy Laboratory Data (last 24 hrs) 03/09/24 03/09/24 03/09/24 20:45 20:45 20:45 WBC 11.10 H Hgb 14.4 Hct 43.3 Plt Count 249 PT 13.2 H INR 1.21 Sodium 131 L Potassium 3.5 BUN 13 Creatinine 0.97 Glucose 141 H Magnesium 2.1 Total Bilirubin 0.5 AST 23 ALT 38 Alkaline Phosphatase 74 - Problems (1) HTN (hypertension) Current Visit: Yes Status: Acute Plan: Continue lopressor 12.5 mg o BID Continue Lasix 40 mg IV daily. Monitor input and output and electrolytes. (2) HLD (hyperlipidemia) Current Visit: Yes Status: Acute Plan: Continue lipitor 40 mg daily (3) NSTEMI (non-ST elevated myocardial infarction) Current Visit: No Status: Acute Plan: Patient with recent PCI RCA and moderate CAD, Plan is to get stress test in am. Continue Lovenox.
[2024-03-10] MEDS: ATORVASTATIN 40 MG TAB PO SCH (20:45)
[2024-03-10] MEDS: DIPHENHYDRAMINE 25 MG TAB/CAP PO PRN (23:38)
[2024-03-10] MEDS: ACETAMINOPHEN 325 MG TABLET PO PRN (23:38)
[2024-03-11 05:57] LABS: Absolute Basophils 0.1 K/uL (0-0.5); Absolute Lymphocytes (CBC) 1.8 K/uL (0.7-4.9); Absolute Monocytes 1.1 K/uL (0.1-1.3); Absolute Neutrophil 9.2 K/uL (1.8-8.0); Basophils % 0.5 % (0-1.3); Eosinophils % 0.3 % (0-4.4); Hematocrit 43.9 % (39.6-49.0); Hemoglobin 14.4 g/dL (13.6-17.9); Lymphocytes % 14.9 % (15.3-44.8); MCH 29.9 pg (27.0-35.0); MCHC 32.8 g/dL (32.0-36.0); MCV 91.1 fL (80-100); MPV 7.6 fL (7.6-11.3); Monocytes % 8.7 % (3.3-12.3); Neutrophils % 75.6 % (41.7-73.7); Platelets 263 thou/uL (152-406); RBC Red Blood Cell Count 4.82 M/uL (4.33-5.43); Red Cell Distribution Width 13.6 % (12.1-15.2)
[2024-03-11 06:21] LABS: Anion Gap 6.5 mEq/L (5.0-15.0); Magnesium 2.2 mg/dL (1.6-2.4); Potassium 3.5 mEq/L (3.5-5.1)
--- NOTE | 2024-03-11 08:27 | ECHO ---
HEIGHT: 5 ft 8 in WEIGHT: 241 lb 6.499 oz DATE OF STUDY: 03/10/[address]: Nanette Kathleen 2-DIMENSIONAL: YES M.MODE: YES DOPPLER: YES COLOR FLOW: YES TDS: PORTABLE: YES DEFINITY: BUBBLE STUDY: DIAGNOSIS: ELEVATED TROPONIN CARDIAC HISTORY: CATHERIZATION: YES SURGERY: PROSTHETIC VALVE: PACEMAKER: MEASUREMENTS (cm) DIASTOLIC (NORMALS) SYSTOLIC (NORMALS) IVSd 1.1 (0.6-1.2) LA Diam 3.5 (1.9-4.0) LVEF 61% LVIDd 4.4 (3.5-5.7) LVIDs 2.9 (2.0-3.5) %FS 33% LVPWd 1.3 (0.6-1.2) Ao Diam 3.1 (2.0-3.7) 2 DIMENSIONAL ASSESSMENT: RIGHT ATRIUM: NORMAL LEFT ATRIUM: NORMAL RIGHT VENTRICLE: NORMAL LEFT VENTRICLE: NORMAL TRICUSPID VALVE: TRACE TRICUSPID REGURGITATION MITRAL VALVE: NORMAL PULMONIC VALVE: NORMAL AORTIC VALVE: NORMAL PERICARDIAL EFFUSION: NONE AORTIC ROOT: NORMAL LEFT VENTRICULAR WALL MOTION: NORMAL DOPPLER/COLOR FLOW: NORMAL COMMENTS: 1. NORMAL LEFT VENTRICULAR SYSTOLIC FUNCTION, EJECTION FRACTION 60-65%, NORMAL WALL MOTION 2. NORMAL DIASTOLIC FUNCTION 3. NORMAL FILLING PRESSURE TECHNOLOGIST: JULISA COHEN
[2024-03-11 08:43] VITALS: O2SAT 97
[2024-03-11] MEDS ORDERED: REGADENOSON 0.4 MG/5 ML SYR IV ONE (09:31)
--- NOTE | 2024-03-11 10:33 | RAD REPORT ---
EXAM DESCRIPTION: NM - Rest Stress Cardiac Imaging - 03/11/2024 10:19 am CLINICAL HISTORY: chest pain s/p PCI Chest pain. COMPARISON: No comparisons TECHNIQUE: The patient was administered approximately 10mCi of Tc 99m Sestamibi prior to resting SPE CT imaging of the heart. The patient was then administered approximately 30 mCi of Tc 99m Sestamibi f ollowing exercise or pharmacologic stress. Multiplanar SPECT images were reviewed. FINDINGS: No stress induced ischemic defect is seen to suggest stress induced ischemia. No fixed def ect is seen to suggest hibernating myocardium or scarred myocardium. The end diastolic volume is 135 ml, the end systolic volume is 68 ml, and the ejection fraction is 49 %. IMPRESSION: No stress induced ischemia.
[2024-03-11] MEDS: POTASSIUM CL SA 10 MEQ TAB PO ONE (11:00)
--- NOTE | 2024-03-11 12:19 | P.PN ---
Subjective Date of Service: 03/11/24 Chief Complaint: Elevated troponin Subjective: No new changes, No C/O voiced, Tolerating diet, Ambulating, Improving Review of Systems 10-point ROS is otherwise unremarkable Physical Examination - Vital Signs Temperature: 98.2 F Blood Pressure: 136/83 Pulse: 79 Respirations: 19 Pulse Ox (%): 98 - Physical Exam General: Alert, In no apparent distress HEENT: Atraumatic, PERRLA, EOMI Neck: Supple, JVD not distended Respiratory: Clear to auscultation bilaterally, Normal air movement Cardiovascular: Regular rate/rhythm, Normal S1 S2 Gastrointestinal: Normal bowel sounds, No tenderness Musculoskeletal: No tenderness Integumentary: No rashes Neurological: Normal speech, Normal tone, Normal affect Lymphatics: No axilla or inguinal lymphadenopathy - Studies Laboratory Data (last 24 hrs) 03/11/24 03/11/24 05:37 05:37 WBC 12.20 H Hgb 14.4 Hct 43.9 Plt Count 263 Sodium 135 L Potassium 3.5 D BUN 23 H Creatinine 0.87 Glucose 115 H Magnesium 2.2 Medications List Reviewed: Yes Assessment And Plan - Current Problems (Diagnosis) (1) HTN (hypertension) Current Visit: Yes Status: Acute Plan: Continue lopressor 12.5 mg o BID May switch Lasix to PO. Monitor input and output and electrolytes. (2) HLD (hyperlipidemia) Current Visit: Yes Status: Acute Plan: Continue lipitor 40 mg daily (3) NSTEMI (non-ST elevated myocardial infarction) Current Visit: No Status: Acute Plan: Patient with recent PCI RCA and moderate CAD, Patient stress test is negative. continue ASA 81 mg daily Continue Plavix 75 mg daily
--- NOTE | 2024-03-11 13:31 | P.DS ---
Admission Date: 03/11/24 Discharge Date: 03/11/24 Reason for Admission: Elevated troponin Consultations: Dr. Franks Procedures: NM Stress test Brief History of Present Illness: 48-year-old male past medical history of UT with recent PCI ,diabetes, obesity, hypertension, hypothyroidism, presented to the emergency room with chest pain. He reports taking Augmentin, reported allergy, reported shortness of breath. And chest pain. He reports a recent heart cath with (PCI.02/06/2024) patient placed on BiPAP in the emergency room O2 sats improved to -100%. ER evaluation sinus rhythm at a rate of 81 all overall normal EKG no ST elevation or depression no ectopy. BP 115 / 97; Pulse 116; Resp 20; Pulse Ox 99% on R/A; Weight 109.5 kg; Height 5 ft. 8 Pain 10/10; chest x-ray IMPRESSION: No acute cardiopulmonary process. Plan to admit for unstable angina, NSTEMI, with cardiology to consult, dyspnea, with cardiology to consult, Lovenox 1 mg/kg twice daily. Recent prior heart cath January 2024 : [facility] - Findings: 1. Left main; diffuse 20% stenosis. 2. LAD; proximal segment is normal, mid segment 40% to 50%, mid to distal 50%, and distal focal 70% stenosis. Diagonal branches are with luminal irregularities. OPERATIVE REPORT 3. Left circumflex; moderate-size, proximal 50% and then mid 60%. OM branch has 50% proximally. 4. RCA; large and dominant. Proximal 50%, mid 99% stenosis, status post successful PCI as above. 5. Elevated LVEDP at 24 mmHg. Conclusion: 1. Critical mid RCA stenosis, which is the culprit for the UT, status post successful PCI as above. 2. Moderate coronary artery disease elsewhere. 3. Elevated LVEDP. Recommendation: 1. Aspirin, Plavix, high-dose statin. 2. Cardiac risk factor modification and diuretics as his LVEDP is very high. DD: Hospital Course: Mr. Dumont did well over the course of his admission. He was seen by Dr. Franks and a nuclear medicine stress test was performed. Dr. Franks recommends continuing Lopressor 12.5 mg p.o. twice daily, Lasix 40 mg p.o. daily, aspirin 81 mg p.o. daily, Plavix 75 mg p.o. daily, Lipitor 40 mg p.o. daily. A prescription for Protonix 40 mg p.o. daily and cater 20 milliequivalents p.o. daily will also be given to Mr. Dumont upon discharge. He will follow-up with Dr. Franks and his PCP. <DioniJyotineyda Valdez - Last Filed: 03/11/24 15:54> Admission Date: 03/11/24 Discharge Date: 03/11/24 Hospital Course: Pt seen and examined. I agree with the note by the [employer] REPRESENTATIVE. Pt had normal stress test. Will continue home meds asprescribed. Pt was advised to take protonix. The leukocytosis is likely due to recent steroid use. Ok to discharge pt <Amauri Garrett - Last Filed: 03/11/24 22:24> Disposition: ROUTINE DISCHARGE Discharge Condition: GOOD Vital Signs/Physical Exam: Temp Pulse Resp BP Pulse Ox 98.2 F 79 19 136/83 98 03/11/24 12:19 03/11/24 12:19 03/11/24 12:19 03/11/24 12:19 03/11/24 12:19 Laboratory Data at Discharge: WBC 12.20 thou/uL (4.3-10.9) H 03/11/24 05:37 Hgb 14.4 g/dL (13.6-17.9) 03/11/24 05:37 Hct 43.9 % (39.6-49.0) 03/11/24 05:37 Plt Count 263 thou/uL (152-406) 03/11/24 05:37 PT 13.2 SECONDS (9.5-12.5) H 03/09/24 20:45 INR 1.21 03/09/24 20:45 Sodium 135 mEq/L (136-145) L 03/11/24 05:37 Potassium 3.5 mEq/L (3.5-5.1) D 03/11/24 05:37 BUN 23 mg/dL (7-18) H 03/11/24 05:37 Creatinine 0.87 mg/dL (0.70-1.30) 03/11/24 05:37 Glucose 115 mg/dL (74-106) H 03/11/24 05:37 Magnesium 2.2 mg/dL (1.6-2.4) 03/11/24 05:37 Total Bilirubin 0.5 mg/dL (0.2-1.0) 03/09/24 20:45 AST 23 U/L (15-37) 03/09/24 20:45 ALT 38 U/L (16-61) 03/09/24 20:45 Alkaline Phosphatase 74 U/L (45-117) 03/09/24 20:45 <Wheatley,Jyoti José Miguel - Last Filed: 03/11/24 15:54> Vital Signs/Physical Exam: Temp Pulse Resp BP Pulse Ox 97.4 F 95 H 20 149/80 H 97 03/11/24 16:00 03/11/24 16:00 03/11/24 16:00 03/11/24 16:00 03/11/24 16:00 Laboratory Data at Discharge: WBC 12.20 thou/uL (4.3-10.9) H 03/11/24 05:37 Hgb 14.4 g/dL (13.6-17.9) 03/11/24 05:37 Hct 43.9 % (39.6-49.0) 03/11/24 05:37 Plt Count 263 thou/uL (152-406) 03/11/24 05:37 PT 13.2 SECONDS (9.5-12.5) H 03/09/24 20:45 INR 1.21 03/09/24 20:45 Sodium 135 mEq/L (136-145) L 03/11/24 05:37 Potassium 3.5 mEq/L (3.5-5.1) D 03/11/24 05:37 BUN 23 mg/dL (7-18) H 03/11/24 05:37 Creatinine 0.87 mg/dL (0.70-1.30) 03/11/24 05:37 Glucose 115 mg/dL (74-106) H 03/11/24 05:37 Magnesium 2.2 mg/dL (1.6-2.4) 03/11/24 05:37 Total Bilirubin 0.5 mg/dL (0.2-1.0) 03/09/24 20:45 AST 23 U/L (15-37) 03/09/24 20:45 ALT 38 U/L (16-61) 03/09/24 20:45 Alkaline Phosphatase 74 U/L (45-117) 03/09/24 20:45 <YonathanmackenzieForeign espositotoni Jack - Last Filed: 03/11/24 22:24> Diet: AHA Activity: Ad mono <Jyoti Wheatley - Last Filed: 03/11/24 15:54> <Foreign Garretttoni Jack - Last Filed: 03/11/24 22:24> Home Medications: Irbesartan 150 mg PO DAILY 02/05/24 Levothyroxine Sodium [Synthroid] 1 tab PO DAILY 02/05/24 Aspirin Chewable [Aspirin Chewable*] 81 mg PO DAILY #30 tab.chew 02/07/24 Atorvastatin Calcium [Lipitor] 40 mg PO BEDTIME #30 tab 02/07/24 Clopidogrel Bisulfate [Plavix*] 75 mg PO DAILY #30 tab 02/07/24 Fenofibrate [Tricor*] 160 mg PO DAILY #30 tab 02/07/24 Metoprolol Tartrate 12.5 mg PO BID #30 tab 02/07/24 Furosemide [Lasix] 40 mg PO DAILY #60 tab 03/11/24 Pantoprazole [Protonix Tab*] 40 mg PO ACB #60 tab 03/11/24 Potassium Chloride [K-Dur] 20 meq PO DAILY #30 tab 03/11/24 New Medications: Potassium Chloride [K-Dur] 20 meq PO DAILY #30 tab Furosemide [Lasix] 40 mg PO DAILY #60 tab Pantoprazole [Protonix Tab*] 40 mg PO ACB #60 tab Physician Discharge Instructions: Okay to DC IV and DC home Follow-up with primary care provider in 1 to 2 weeks Follow-up with cardiology in 1 to 2-week Please call the inpatient unit for any questions or concerns regarding hospital stay Return to the ER for worsening symptoms Mr. Dumont did well over the course of his admission. He was seen by Dr. Franks and a nuclear medicine stress test was performed. Dr. Franks recommends continuing Lopressor 12.5 mg p.o. twice daily, Lasix 40 mg p.o. daily, aspirin 81 mg p.o. daily, Plavix 75 mg p.o. daily, Lipitor 40 mg p.o. daily. A prescription for Protonix 40 mg p.o. daily K-Dur 20 mEQ p.o. daily will also be given to Mr. Dumont upon discharge. He will follow-up with Dr. Franks and his PCP. Followup: DYAN ZAIDI [Primary Care Provider] -
--- NOTE | 2024-03-11 14:12 | TREADPHA ---
DX: CHEST PAIN Date of Study: 03/11/2024 Ht: 5' 8 " Wt: 241 lb 6.499 oz Consulting Physician: ONUR MEDICATIONS: HISTORY: 48 YEAR OLD MALE WITH COMPLAINTS OF CHEST PAIN. PHYSICIAL EXAMINATION: RESTING B.P.: 124/85 RESTING H.R.: 83 RESTING EKG: SINUS RHYTHM PROTOCOL: PHARMACOLOGIC EXERCISE TIME: 3:30 B.P. AT [place] STRESS: 101/75 IMPRESSION: LEXISCAN INJECTED. CARDIOLITE INJECTED (SEE NUCLEAR MEDICINE REPORT). COMPLAINTS OF CHEST PAIN AND SHORTNESS OF BREATH. TEN OUT OF TEN ON PAIN SCALE. NO VENTRICULAR TACHYCARDIA/ SUPRAVENTRICULAR TACHYCARDIA. NO ARRHYTHMIAS NOTED. LAST BLOOD PRESSURE 112/73 WITH A HEART RATE OF 94.
--- NOTE | 2024-03-11 15:07 | EKG ---
Test Date: 2024-03-09 Test Time: 22:50:14 Orthopedics Nurse: MEASUREMENT RESULTS: Intervals: Rate: 81 ME: 126 QRSD: 98 QT: 374 QTc: 434 [place]: P: 51 ME: 126 QRS: 70 T: 53 INTERPRETIVE STATEMENTS: Normal sinus rhythm Normal ECG Compared to ECG 03/09/2024 20:25:55 Sinus tachycardia no longer present Electronically Signed On 03-11-24 15:00:54 CDT by Luc Khan
--- NOTE | 2024-03-11 15:07 | EKG ---
Test Date: 2024-03-09 Test Time: 20:25:55 Flexboard Operator: TIFFANY MEASUREMENT RESULTS: Intervals: Rate: 108 CO: 116 QRSD: 88 QT: 322 QTc: 431 [place]: P: 65 CO: 116 QRS: 78 T: 47 INTERPRETIVE STATEMENTS: Sinus tachycardia Otherwise normal ECG Compared to ECG 02/09/2024 22:31:15 Sinus rhythm no longer present Electronically Signed On 03-11-24 15:01:01 CDT by Luc Khan
--- NOTE | 2024-03-11 15:17 | RAD REPORT ---
EXAM DESCRIPTION: RADChest Single View03/11/2024 2:46 pm CLINICAL HISTORY: Leukocytosis COMPARISON: Chest Single View dated 03/09/2024; Chest Single View dated 02/09/2024; Chest Single View dated 02/05/2024; Chest Single View dated 11/14/2023 TECHNIQUE: Portable AP view of the chest. FINDINGS: The lungs are clear. No pneumothorax or effusion. The cardiomediastinal contours are unre markable. IMPRESSION: No acute cardiopulmonary process.
[2024-03-11 15:21] LABS: Specific Gravity 1.022 (1.005-1.030); Urine Bilirubin NEGATIVE (Negative); Urine Blood Negative (Negative); Urine Clarity Clear (Clear); Urine Color Light-Yellow (Yellow); Urine Glucose NEGATIVE (Negative); Urine Ketones NEGATIVE (Negative); Urine Microscopic Reflex YN NO UMIC; Urine Nitrite NEGATIVE (Negative); Urine Protein NEGATIVE (Negative); Urine Urobilinogen 1+ (Normal); Urine pH 6.5 (5.0-7.0)
[2024-03-11 16:39] VITALS: BP 149/80; TEMP 97.4
[2024-03-12] MEDS ORDERED: PANTOPRAZOLE 40MG TABLET PO SCH (07:30)
== END 2024-03-11 17:45 | disposition home or self-care (01) | DRG 282 ==
LOC: ER 20:10 → ERHOLD 03-10 00:15 → 4TH 03-10 01:12 → OBSVTOIN 03-11 08:54
PROVIDERS: ADMIT Hospitalist; ATTEND Hospitalist
PROC: 4A033R1 Measurement of Arterial Saturation, Peripheral, Percutaneous Approach (ICD-10-PCS; principal; 2024-03-10)
PROC: 5A09357 Assistance with Respiratory Ventilation, Less than 24 Consecutive Hours, Continuous Positive Airway Pressure (ICD-10-PCS; 2024-03-11)
DX: I21.4 Non-ST elevation (NSTEMI) myocardial infarction (principal); I10 Essential (primary) hypertension; E03.9 Hypothyroidism, unspecified; E78.5 Hyperlipidemia, unspecified; E11.9 Type 2 diabetes mellitus without complications; E66.01 Morbid (severe) obesity due to excess calories; I25.110 Atherosclerotic heart disease of native coronary artery with unstable angina pectoris; T36.0X5A Adverse effect of penicillins, initial encounter; T36.1X5A Adverse effect of cephalosporins and other beta-lactam antibiotics, initial encounter; F17.210 Nicotine dependence, cigarettes, uncomplicated; I25.2 Old myocardial infarction; R09.02 Hypoxemia; R11.10 Vomiting, unspecified; Z88.0 Allergy status to penicillin; Z68.36 Body mass index [BMI] 36.0-36.9, adult; Z79.82 Long term (current) use of aspirin; Z79.02 Long term (current) use of antithrombotics/antiplatelets; Z90.49 Acquired absence of other specified parts of digestive tract; Z79.890 Hormone replacement therapy; Z79.899 Other long term (current) drug therapy
CPT/HCPCS: 36415; 36600; 71045; 71275; 74175; 78452; 80048; 80076; 81003; 82805; 82947; 83036; 83735; 83880; 84484; 85025; 85610; 86140; 87040; 93005; 93017; 93306; 94660; 96361; 96372; 96374; 96375; 99285; A9500; C9113; G0378; J1170; J1200; J1650; J1940; J2765; J2785; J2919; J7030; J7512; Q9967

== ENCOUNTER 2024-05-29 10:22 | Inpatient (IN) | payer SELFPAY ==
--- OUTSIDE RECORDS SUMMARY | 2024-05-29 10:31 | XMS REPORT | Continuity of Care Document ---
Author Name Unknown Address [address] [facility] [address] [place] [address] [facility] Address [address] [facility] [address] [place] [address] Care Team Providers Care Kettleman Name Role Phone Pcp, Patient Does Not Have A Primary Care Physic bala Doctor Unassigned, Hydro Attending Clinician U BABS Cohen Attending Clinician Unavailable CHAPITO CONTRERAS Attending Clinician Unavailable Chapito Contreras MD Attending Clinician [phone] Nidia SOLANO Attending Clinician Unavailable Nidia Goss Attending Clinician [phone] JOSE FRANCISCO WALTERS Attending Clinician Unavailable Jose Francisco Walters MD Attending Clinician [phone] LOREN TAM Attending Clinician Unavailable LOREN TAM Attending Clinician Unavailable Loren Tam DO Attending Clinician [phone] Patrick Garrett Attending Clinician [phone] PATRICK VERGARA Attending Clinician Unavailable SOFIA ESCOBAR Attending Clinician Unavailable SOFIA ESCOBAR Attending Clinician Unavailable MARIE MORALES Attending Clinician UnavailMarie Andrews DO Attending Clinician [phone] SAQIB CLARKE Attending Clinician Unavailable Saqib Clarke DO Attending Clinician [phone] BENJAMIN ASHFORD Attending Clinician Unavailable Benjamin Ashford MD Attending Clinician [phone] Geoff Cardona MD Attending Clinician [phone] GEOFF CARDONA Attending Clinician Unavailable Kiki Mathur MD Attending Clinician [phone] KIKI MATHUR Attending Clinician UnavailGricelda Sherman MD Attending Clinician [phone] BABS BUSTAMANTE Admitting Clinician Unavailable JOSE FRANCISCO WALTERS Admitting Clinician Unavailable CHAPITO CONTRERAS Admitting Clinician Unavailable LOREN TAM Admitting Clinician Unavailable PATRICK VERGARA Admitting Clinician Unavailable Nidia SOLANO Admitting Clinician Unavailable MARIE MORALES Admitting Clinician Unavailab Gricelda Brooks MD Admitting Clinician [phone] Payers Payer Name Policy Type Policy Number Effective Date Expirati on Date Source [facility] [id number] 2023 00:00:00 Problems Condition Name Condition Details Condition Category Status Onset Date Resolution Date Last Treatment Date Treating Clinician Comments Source Obesity (BMI 30-39.9) Obesity (BMI 30-39.9) Disease Active 05-08 00:00: 00 [facility] Cigarette nicotine dependence without complicati on Cigarette nicotine dependence without complicati on Disease Active 2019-10 00:00: 00 [facility] Atypical chest pain Atypical chest pain Disease Active 2019-10 00:00: 00 [facility] Essential hypertensi on Essential hypertensi on Disease Active 2019-10 00:00: 00 [facility] No known active problems No known active problems Disease [facility] Allergies, Adverse Reactions, Alerts Allergy Name Allergy Type Status Severity Reaction(s) Onset Date Inactive Date Treating Clinician Comments Source Penicill in Propensi ty to adverse reaction s Active Unknown - See comments 03-30 00:00: 00 [facility] PENICILL IN DRUG INGREDI Active Unknown-Cmnt 03-30 00:00: 00 [facility] NO KNOWN ALLERGIE S Drug Class Active [facility] Social History Social Habit Start Date Stop Date Quantity Comments Source History of tobacco use Cigarette Smoker [facility] History SDOH Alcohol Frequency [facility] History SDOH Alcohol Std Drinks [facility] History SDOH Alcohol Binge [facility] Gender [facility] Alcoholic beverage intake 2024-02-04 00:00:00 2024-02-04 00:00:00 Current drinker of alcohol (finding) [facility] Alcohol intake 2024-02-04 00:00:00 2024-02-04 00:00:00 Current drinker of alcohol (finding) [facility] Exposure to SARS-CoV-2 (event) 2023-02-10 00:00:00 2023-02-20 18:06:00 Not sure [facility] Cigarettes smoked current (pack per day) - Reported 2021-05-08 00:00:00 2021-05-08 00:00:00 [facility] Alcohol Comment 2021-05-08 00:00:00 2021-05-08 00:00:00 6beers on the weekend [facility] Tobacco use and exposure 2021-05-08 00:00:00 2021-05-08 00:00:00 Smokeless tobacco non-user [facility] History of Social function 2020-08-29 00:00:00 2020-08-29 00:00:00 [facility] Sex assigned at 1975 00:00:00 1975 00:00:00 [facility] Smoking Status Start Date Stop Date Source Smokes tobacco daily 2021-05-08 00:00:00 [facility] Never smoker [facility] if ever smoked [facility] Medications Ordered Medication Name Filled Medication Name Start Date Stop Date Current Medication? Ordering Clinician Indication Dosage Frequency Signature (SIG) Comments Components Source iopamidol (ISOVUE 370-500 mL) injection 85 mL 02-03 18:00: 00 02-03 18:00 :00 No [id number] 85mL 85 mL, Intravenou s, ONCE, 1 dose, On Fri02/04/24 at 1300, Routine [facility] morpHINE (2 mg/mL) injection 2 mg 02-03 17:45: 00 02-03 18:48 :00 No 2mg 2 mg, Slow IV Push, ONCE, 1 dose, On Fri02/04/24 at 1245, STAT [facility] ondansetron (ZOFRAN (PF)) injection 4 mg 02-03 16:30: 00 02-03 17:15 :00 No 4mg 4 mg, Slow IV Push, ONCE, 1 dose, On Fri02/04/24 at 1130, FAWN [facility] ketorolac (TORADOL) injection 15 mg 02-03 16:30: 00 02-03 17:16 :00 No 15mg 15 mg, Slow IV Push, ONCE, 1 dose, On Fri02/04/24 at 1130[facility] sodium chloride (NS) [facility] 5 mL 02-03 15:28: 49 Yes 5mL 5 mL, Intravenou s, PRN, Starting on Fri02/04/24 at 1028, Until Discontinu ed, Routine, IV line flushing [facility] dicyclomine (BENTYL) injection 20 mg 12-27 09:15: 00 Yes 20mg 20 mg, Intramuscu lar, QID, First dose on Fri12/28/23 at 0415, Until Discontinu ed, Routine [facility] maalox:diph enhydrAMINE :lidocaine 2 % viscous 1:1:1 (FIRST-MOUT HWASH BLM) oral suspension 15 mL 12-27 08:30: 00 12-27 08:27 :00 No 15mL 15 mL, Oral, ONCE, 1 dose, On Fri12/28/23 at 0330, Routine [facility] maalox:diph enhydrAMINE :lidocaine 2 % viscous 1:1:1 (FIRST-MOUT HWASH BLM) oral suspension 15 mL 11-06 07:15: 00 11-06 07:38 :00 No 15mL 15 mL, Oral, ONCE, 1 dose, On [place] 11/06/23 at 0115, Routine [facility] famotidine (PEPCID (PF)) injection 20 mg 11-06 07:15: 00 11-06 07:38 :00 No 20mg 20 mg, Slow IV Push, ONCE, 1 dose, On Ale 11/06/23 at 0115, FAWN [facility] NaCl 0.9% (NS) bolus infusion 1,000 mL 11-06 07:15: 00 11-06 07:38 :00 No 1000mL at 999 mL/hr, 1,000 mL, IV Infusion, ONCE, 1 dose, On Ale 11/06/23 at 0115, STAT [facility] ondansetron (ZOFRAN (PF)) injection 4 mg 11-06 07:15: 00 11-06 06:19 :00 No 4mg 4 mg, Slow IV Push, ONCE, 1 dose, On Ale 11/06/23 at 0115, FAWN [facility] dicyclomine (BENTYL) injection 20 mg 11-06 07:00: 00 11-06 07:00 :00 No 20mg 20 mg, Intramuscu lar, ONCE, 1 dose, On Ale 11/06/23 at 0100, Routine [facility] dicyclomine 20 mg tablet 11-06 00:00: 00 Yes 20mg Take 1 tablet by mouth 4 (four) times daily. Indication s: abdominal pain [facility] famotidine (PEPCID) 40 mg tablet 11-06 00:00: 00 Yes [id number] 40mg Take 1 tablet by mouth daily. [facility] acetaminoph en (TYLENOL) tablet 650 mg 11-01 09:30: 00 11-01 09:30 :00 No 650mg 650 mg, Oral, ONCE, 1 dose, On 11/01/23 at 0330, FAWN [facility] iopamidol (ISOVUE 370-500 mL) injection 100 mL 11-01 09:30: 00 11-01 09:30 :00 No [id number] 100mL 100 mL, Intravenou s, ONCE, 1 dose, On 11/01/23 at 0330, Routine [facility] morpHINE (4 mg/mL) injection 4 mg 11-01 07:00: 00 11-01 06:56 :00 No 4mg 4 mg, Slow IV Push, ONCE, 1 dose, On 11/01/23 at 0100, STAT [facility] ketorolac (TORADOL) injection 30 mg 11-01 06:45: 00 11-01 06:00 :00 No 30mg 30 mg, Slow IV Push, ONCE, 1 dose, On 11/01/23 at 0045, FAWN [facility] NaCl 0.9% (NS) bolus infusion 1,000 mL 11-01 06:45: 00 11-01 07:59 :00 No 1000mL at 999 mL/hr, 1,000 mL, IV Piggyback, ONCE, 1 dose, On 11/01/23 at 0045, STAT [facility] ondansetron (ZOFRAN (PF)) injection 4 mg 11-01 06:00: 00 11-01 05:59 :00 No 4mg 4 mg, Slow IV Push, ONCE, 1 dose, On 11/01/23 at 0000, FAWN [facility] morpHINE (4 mg/mL) injection 4 mg 11-01 06:00: 00 11-01 06:00 :00 No 4mg 4 mg, Slow IV Push, ONCE, 1 dose, On 11/01/23 at 0000, STAT [facility] famotidine (PEPCID) 20 mg tablet 11-01 00:00: 00 Yes [id number] 20mg Take 1 tablet by mouth 2 (two) times daily. [facility] dicyclomine 20 mg tablet 11-01 00:00: 00 Yes [id number] 20mg Take 1 tablet by mouth 3 (three) times daily as needed for Abdominal pain. [facility] iopamidol (ISOVUE 370-500 mL) injection 100 mL 10-23 08:00: 00 10-23 08:00 :00 No [id number] 100mL 100 mL, Intravenou s, ONCE, 1 dose, On Ale 10/23/23 at 0200, Routine [facility] FENTanyl PF (SUBLIMAZE (PF)) injection 50 mcg 10-23 08:00: 00 10-23 07:01 :00 No 50ug 50 mcg, Slow IV Push, ONCE, 1 dose, On Ale 10/23/23 at 0200, Routine [facility] ketorolac (TORADOL) injection 30 mg 10-23 07:15: 00 10-23 06:08 :00 No 30mg 30 mg, Slow IV Push, ONCE, 1 dose, On Ale 10/23/23 at 0115, Routine [facility] ondansetron (ZOFRAN (PF)) injection 4 mg 10-23 06:15: 00 10-23 06:08 :00 No 4mg 4 mg, Slow IV Push, ONCE, 1 dose, On Ale 10/23/23 at 0015, FAWN [facility] ketorolac 10 mg tablet 10-23 00:00: 00 Yes [id number] 10mg Take 1 tablet by mouth every 6 (six) hours as needed for Pain (scale 7-10). [facility] iopamidol (ISOVUE 370-500 mL) injection 100 mL 2022-10 07:15: 00 09-26 07:15 :00 No [id number] 100mL 100 mL, Intravenou s, ONCE, 1 dose, On Fri09/26/23 at 0115, Routine [facility] ketorolac (TORADOL) injection 30 mg 2022-10 07:00: 00 09-26 06:12 :00 No 30mg 30 mg, Slow IV Push, ONCE, 1 dose, On Fri09/26/23 at 0100, Routine [facility] NaCl 0.9% (NS) bolus infusion 1,000 mL 2022-10 06:00: 00 09-26 06:15 :00 No 1000mL at 999 mL/hr, 1,000 mL, IV Infusion, ONCE, 1 dose, On Fri09/26/23 at 0000, [facility] morpHINE (4 mg/mL) injection 4 mg 2022-10 05:30: 00 09-26 05:19 :00 No 4mg 4 mg, Slow IV Push, ONCE, 1 dose, On Ale 09/25/23 at 2330, STAT [facility] lactulose (CEPHULAC) solution 60 mL 2022-10 05:15: 00 09-26 05:13 :00 No 60mL 60 mL, Oral, ONCE, 1 dose, On Ale 09/25/23 at 2315, [facility] ondansetron (ZOFRAN (PF)) injection 4 mg 2022-10 05:15: 00 09-26 05:13 :00 No 4mg 4 mg, Slow IV Push, ONCE, 1 dose, On Ale 09/25/23 at 2315, [facility] SEMAGLUTIDE , WEIGHT LOSS, SC 2022-10 02:30: 30 Yes inject under the skin. [facility] iopamidol (ISOVUE 370-500 mL) injection 75 mL 2022-10 09:00: 00 08-24 09:00 :00 No [id number] 75mL 75 mL, Intravenou s, ONCE, 1 dose, On Fri08/24/23 at 0300, Routine [facility] ondansetron (ZOFRAN (PF)) injection 4 mg 2022-10 06:30: 00 08-24 08:15 :00 No 4mg 4 mg, Slow IV Push, ONCE, 1 dose, On Fri08/24/23 at 0130, [facility] morpHINE (4 mg/mL) injection 4 mg 2022-10 06:30: 00 08-24 08:14 :00 No 4mg 4 mg, Slow IV Push, ONCE, 1 dose, On Fri08/24/23 at 0130, STAT [facility] aspirin tablet 325 mg 2022-10 05:15: 00 08-24 05:18 :00 No 325mg 325 mg, Oral, ONCE, 1 dose, On Fri08/24/23 at 0015, STAT [facility] ketorolac (TORADOL) injection 30 mg 07-07 10:45: 00 07-07 09:53 :00 No 30mg 30 mg, Slow IV Push, ONCE, 1 dose, On Fri07/07/23 at 0545, Routine [facility] metoclopram glenroy HCl (REGLAN) injection 10 mg 07-07 09:45: 00 07-07 09:54 :00 No 10mg 10 mg, Slow IV Push, ONCE, 1 dose, On Fri07/07/23 at 0445, [facility] butalbital- acetaminoph en-caff 50-325-40 mg tablet 07-07 00:00: 00 Yes [id number] 1{tbl} Take 1 tablet by mouth every 6 (six) hours as needed (Headache) . [facility] metFORMIN (GLUCOPHAGE ) tablet 500 mg 05-26 13:00: 00 Yes 500mg 500 mg, Oral, BID MEALS, First dose on Fri05/26/23 at 0800, Until Discontinu ed, Routine [facility] ketorolac (TORADOL) injection 15 mg 05-26 03:00: 00 05-26 02:19 :00 No 15mg 15 mg, Slow IV Push, ONCE, 1 dose, On Fri05/25/23 at 2200, [facility] nitroglycer in (NITROL) 2 % ointment 0.5 Inch 05-25 23:30: 00 05-26 01:27 :00 No .5[in_u s] 0.5 Inch, Transderma l (Apply To Skin), ONCE, 1 dose, On Fri05/25/23 at 1830, [facility] maalox:diph enhydrAMINE :lidocaine 2 % viscous 1:1:1 (FIRST-MOUT HWASH BLM) oral suspension 15 mL 05-25 23:30: 00 05-26 00:49 :00 No 15mL 15 mL, Oral (Swish & Swallow), ONCE, 1 dose, On [place] 05/25/23 at 1830, Routine [facility] aspirin chewable tablet 324 mg 05-25 23:30: 00 05-25 22:24 :00 No 324mg 324 mg, Oral, ONCE, 1 dose, On [place] 05/25/23 at 1830, Routine [facility] metFORMIN 500 mg tablet 05-25 00:00: 00 Yes [id number] 500mg Take 1 tablet by mouth 2 (two) times daily. [facility] naproxen (NAPROSYN) 500 mg tablet 05-25 00:00: 00 02-03 00:00 :00 No [id number] 500mg Take 1 tablet by mouth 2 (two) times daily with meals. [facility] cloNIDine (CATAPRES) tablet 0.2 mg 02-21 00:45: 00 02-21 01:50 :00 No .2mg 0.2 mg, Oral, ONCE, 1 dose, On [facility] 02/20/23 at 1945, FAWN [facility] ibuprofen (IBU) tablet 600 mg 02-20 23:30: 00 02-20 23:30 :00 No 600mg 600 mg, Oral, ONCE, 1 dose, On [facility] 02/20/23 at 1830, FAWN [facility] ibuprofen 600 mg tablet 02-20 00:00: 00 02-03 00:00 :00 No [id number] 600mg Take 1 tablet by mouth every 6 (six) hours as needed for Pain (scale 4-6) for up to 30 doses. [facility] iopamidol (ISOVUE 370-500 mL) injection 100 mL 3-12 09:15: 00 12-29 09:15 :00 No [id number] 100mL 100 mL, Intravenou s, ONCE, 1 dose, On 12/29/22 at 0415, Routine [facility] ketorolac (TORADOL) injection 30 mg 12-29 09:00: 00 12-29 07:53 :00 No 30mg 30 mg, Slow IV Push, ONCE, 1 dose, On 12/29/22 at 0400, [facility] ondansetron (ZOFRAN) 4 mg tablet 12-29 00:00: 00 Yes [id number] 4mg Take 1 tablet by mouth every 8 (eight) hours as needed for Nausea and Vomiting (N/V). [facility] ketorolac 10 mg tablet 12-29 00:00: 00 Yes [id number] 10mg Take 1 tablet by mouth every 6 (six) hours as needed for Pain (scale 7-10). [facility] maalox:diph enhydrAMINE :lidocaine 2 % viscous 1:1:1 (FIRST-MOUT HWASH BLM) oral suspension 15 mL 11-21 08:45: 00 11-21 08:36 :00 No 15mL 15 mL, Oral, ONCE, 1 dose, On Ale 11/21/22 at 0245, Routine [facility] metoclopram glenroy HCl (REGLAN) tablet 10 mg 06-02 12:30: 00 Yes 10mg 10 mg, Oral, AC, First dose on 06/02/22 at 0730, Until Discontinu ed, Routine [facility] dexamethaso ne (DECADRON PHOSPHATE) injection 10 mg 06-02 06:00: 00 06-02 04:55 :00 No 10mg 10 mg, Oral, ONCE, 1 dose, On Fri06/02/22 at 0100, Routine [facility] butalbital- acetaminoph en-caff (ESGIC) 50-325-40 mg tablet 1 tablet 06-02 05:00: 00 06-02 04:56 :00 No 1{tbl} 1 tablet, Oral, ONCE, 1 dose, On Sun 14/22 at 0000, FAWN [facility] diphenhydrA MINE (BENADRYL) tablet 50 mg 06-02 05:00: 00 06-02 04:54 :00 No 50mg 50 mg, Oral, ONCE, 1 dose, On Fri06/02/22 at 0000, [facility] levothyroxi ne (SYNTHROID) tablet 100 mcg 05-29 11:00: 00 Yes 100ug 100 mcg, Oral, QAM-0600, First dose on Fri05/29/22 at 0600, Until Discontinu ed, Routine [facility] levothyroxi ne 200 mcg tablet 05-28 13:18: 02 05-28 00:00 :00 No 300ug Take 300 mcg by mouth every morning. [facility] levothyroxi ne 300 mcg tablet 05-28 00:00: 00 08-27 05:59 :00 No [id number] 300ug Take 1 tablet by mouth every morning for 90 days. [facility] ketorolac (TORADOL) injection 15 mg 05-06 06:30: 00 05-06 05:30 :00 No 15mg 15 mg, Slow IV Push, ONCE, 1 dose, On Fri05/06/22 at 0130, [facility] iopamidol (ISOVUE 370-500 mL) injection 65 mL 05-06 06:00: 00 05-06 06:15 :00 No [id number] 65mL 65 mL, Intravenou s, ONCE, 1 dose, On Fri05/06/22 at 0115, Routine [facility] benzonatate 200 mg capsule 05-06 00:00: 00 Yes [id number] 200mg Take 1 capsule by mouth 3 (three) times daily as needed for Cough for up to 20 doses. [facility] ondansetron 4 mg disintegrat ing tablet 05-06 00:00: 00 Yes [id number] 4mg Take 1 tablet by mouth every 8 (eight) hours as needed for Nausea and Vomiting (N/V). [facility] ibuprofen 600 mg tablet 05-06 00:00: 00 02-20 00:00 :00 No [id number] 600mg Take 1 tablet by mouth every 6 (six) hours as needed for Pain (scale 4-6). [facility] molnupiravi r 200 mg capsule 05-06 00:00: 00 05-12 04:59 :00 No [id number] 800mg Take 4 capsules by mouth every 12 (twelve) hours for 5 days. [facility] magnesium sulfate in water 2 gram/50 mL (4 %) infusion 2 g 05-01 13:45: 00 05-01 14:06 :00 No 2g 2 g, IV Piggyback, Administer over 60 Minutes, ONCE, 1 dose, On Fri05/01/22 at 0845, Routine [facility] diphenhydrA MINE (BENADRYL) injection 50 mg 05-01 12:45: 00 05-01 12:43 :00 No 50mg 50 mg, Slow IV Push, ONCE, 1 dose, On Fri05/01/22 at 0745, STAT [facility] maalox:diph enhydrAMINE :lidocaine 2 % viscous 1:1:1 (FIRST-MOUT HWASH BLM) oral suspension 15 mL 02-08 07:15: 00 02-08 06:14 :00 No 15mL 15 mL, Oral, ONCE, 1 dose, On Fri02/08/22 at 0215, FAWN [facility] sucralfate 1 gram tablet 02-08 00:00: 00 Yes [id number] 1g Take 1 tablet by mouth before meals and at bedtime. [facility] ondansetron 4 mg disintegrat ing tablet 02-08 00:00: 00 Yes [id number] 4mg Take 1 tablet by mouth every 4 (four) hours as needed for Nausea and Vomiting (N/V). [facility] pantoprazol e 40 mg EC tablet 02-08 00:00: 00 Yes [id number] 40mg Take 1 tablet by mouth daily. [facility] maalox:diph enhydrAMINE :lidocaine 2 % viscous 1:1:1 (FIRST-MOUT HWASH BLM) oral suspension 15 mL 2020-10 02:15: 00 10-15 01:17 :00 No 15mL 15 mL, Oral, ONCE, 1 dose, On Fri10/14/21 at 2015, Routine [facility] iopamidol (ISOVUE 370-500 mL) injection 120 mL 2020-10 01:45: 00 10-15 00:37 :00 No [id number] 120mL 120 mL, Intravenou s, ONCE, 1 dose, On Fri10/14/21 at 1945, Routine [facility] famotidine (PEPCID (PF)) injection 20 mg 2020-10 00:30: 00 10-15 00:26 :00 No 20mg 20 mg, Slow IV Push, ONCE, 1 dose, On Fri10/14/21 at 1830, Routine [facility] enalapril 20 mg tablet 05-15 17:24: 35 Yes 25mg Take 25 mg by mouth daily. [facility] levothyroxi ne 200 mcg tablet 05-15 17:24: 35 Yes 300ug Take 300 mcg by mouth every morning. [facility] enalapril 20 mg tablet 05-15 12:24: 35 Yes 25mg Take 25 mg by mouth daily. [facility] levothyroxi ne 200 mcg tablet 05-15 12:24: 35 Yes 300ug Take 300 mcg by mouth every morning. [facility] FENTanyl (ACTIQ) lollipop 600 mcg 05-08 19:45: 00 05-08 18:59 :00 No [id number] 600ug 600 mcg, Buccal, ONCE, 1 dose, Fri05/08/21 at 1445, Routine [facility] sulfamethox azole-trime thoprim (BACTRIM DS) 800-160 mg per tablet 05-08 00:00: 00 05-16 04:59 :00 No [id number] 1{tbl} Take 1 tablet by mouth 2 (two) times daily for 7 days. [facility] HYDROcodone -acetaminop hen (NORCO) 10-325 mg tablet 1 tablet 05-06 09:45: 00 05-06 08:44 :00 No 1{tbl} 1 tablet, Oral, ONCE, 1 dose, [place] 05/06/21 at 0445, Routine [facility] sulfamethox azole-trime thoprim 800-160 mg per tablet 05-06 00:00: 00 Yes [id number] 1{tbl} Take 1 tablet by mouth every 12 (twelve) hours. [facility] HYDROcodone -acetaminop hen 5-325 mg tablet 05-06 00:00: 00 05-14 04:59 :00 No [id number] 1{tbl} Take 1 tablet by mouth every 4 (four) hours as needed for Pain (scale 7-10) for up to 7 days. Indication s: acute pain [facility] ketorolac (TORADOL) injection 30 mg 03-15 06:30: 00 03-15 05:44 :00 No 30mg 30 mg, Slow IV Push, ONCE, 1 dose, [facility] 03/15/21 at 0130, Routine
[employer] member approving Restricted medication : CHAPITO CONTRERAS [facility] enalapril 20 mg tablet 03-15 06:19: 47 Yes 25mg Take 25 mg by mouth daily. [facility] levothyroxi ne 200 mcg tablet 03-15 06:19: 47 Yes 300ug Take 300 mcg by mouth every morning. [facility] iopamidol (ISOVUE 370-500 mL) injection 120 mL 03-15 06:00: 00 03-15 06:00 :00 No [id number] 120mL 120 mL, Intravenou s, ONCE, 1 dose, [facility] 03/15/21 at 0100, Routine [facility] KCL (KLOR-CON M20) tablet 40 mEq 03-15 05:45: 00 03-15 05:01 :00 No [id number] 40 mEq, Oral, ONCE, 1 dose, [facility] 03/15/21 at 0045, Routine [facility] ondansetron (ZOFRAN (PF)) injection 4 mg 03-15 05:30: 00 03-15 04:32 :00 No 4mg 4 mg, Slow IV Push, ONCE, 1 dose, [place] 03/15/21 at 0030, FAWN [facility] FENTanyl PF (SUBLIMAZE (PF)) injection 75 mcg 03-15 05:30: 00 03-15 04:32 :00 No 75ug 75 mcg, Slow IV Push, ONCE, 1 dose, [place] 03/15/21 at 0030, Routine [facility] traMADoL (ULTRAM) 50 mg tablet 03-15 00:00: 00 Yes [id number] 50mg Take 1 tablet by mouth every 6 (six) hours as needed for Pain (scale 4-6) or Pain (scale 7-10). Indication s: acute pain [facility] methocarbam oL 500 mg tablet 03-15 00:00: 00 Yes [id number] 500mg Take 1 tablet by mouth every 6 (six) hours as needed (MUSCLE SPASM). [facility] ibuprofen 800 mg tablet 03-15 00:00: 00 02-20 00:00 :00 No [id number] 800mg Take 1 tablet by mouth every 8 (eight) hours as needed for Pain (scale 4-6). [facility] pantoprazol e (PROTONIX) 80 mg in NaCl 0.9% (NS) 20 mL syringe 2019-10 00:15: 00 09-08 23:17 :00 No 80mg 80 mg, IV Push, ONCE, 1 dose, Fri09/08/20 at 1815, 20 mL [facility] maalox:diph enhydrAMINE :lidocaine2 %viscous 1:1:1: suspension (COMPOUNDED ) 2019-10 00:15: 00 09-08 23:16 :00 No 15mL 15 mL, Oral, ONCE, 1 dose, Fri09/08/20 at 1815, Routine [facility] sucralfate 1 gram tablet 2019-10 00:00: 00 Yes [id number] 1g Take 1 tablet by mouth before meals and at bedtime. [facility] dicyclomine (BENTYL) 10 mg capsule 2019-10 00:00: 00 Yes [id number] 10mg Take 1 capsule by mouth every 8 (eight) hours as needed for Abdominal pain. [facility] ondansetron 4 mg disintegrat ing tablet 2019-10 00:00: 00 Yes [id number] 4mg Take 1 tablet by mouth every 8 (eight) hours as needed for Nausea and Vomiting (N/V). [facility] omeprazole 20 mg capsule 2019-10 00:00: 00 10-09 05:59 :00 No [id number] 20mg Take 1 capsule by mouth daily for 30 days. [facility] ketorolac (TORADOL) injection 30 mg 2019-10 20:15: 00 09-06 19:14 :00 No 30mg 30 mg, Slow IV Push, ONCE, 1 dose, Fri09/06/20 at 1415, FAWN
[facility] member approving Restricted medication : Nidia SOLANO [facility] FENTanyl PF (SUBLIMAZE (PF)) injection 50 mcg 2019-10 18:45: 00 09-06 17:38 :00 No 50ug 50 mcg, Slow IV Push, ONCE, 1 dose, Fri09/06/20 at 1245, STAT [facility] iohexol (OMNIPAQUE 350 BULK-500 mL) injection 150 mL 2019-10 18:15: 00 09-06 17:00 :00 No 150mL 150 mL, Intravenou s, ONCE, 1 dose, Fri09/06/20 at 1215, Routine [facility] ondansetron (ZOFRAN (PF)) injection 4 mg 2019-10 17:30: 00 09-06 16:33 :00 No 4mg 4 mg, Slow IV Push, ONCE, 1 dose, Fri09/06/20 at 1130, FAWN [facility] morpHINE injection 4 mg 2019-10 17:30: 00 09-06 16:33 :00 No 4mg 4 mg, Slow IV Push, ONCE, 1 dose, Fri09/06/20 at 1130, STAT [facility] ibuprofen 600 mg tablet 2019-10 00:00: 00 03-14 00:00 :00 No [id number] 600mg Take 1 tablet by mouth every 6 (six) hours as needed for Pain (scale 4-6). [facility] Polyethylen e Glycol 3350 (MIRALAX) powder 17 g 2019-10 13:00: 00 08-30 11:55 :00 No 17g 17 g, Oral, ONCE, 1 dose, Fri08/30/20 at 0700, Routine [facility] aspirin 81 mg chewable tablet 2019-10 00:00: 00 09-30 05:59 :00 No [id number] 81mg Take 1 tablet by mouth daily for 30 days. [facility] levothyroxi ne 125 mcg tablet 2019-10 23:22: 41 08-29 00:00 :00 No 300ug Take 300 mcg by mouth every morning. [facility] lisinopriL 30 mg tablet 2019-10 23:22: 41 08-29 00:00 :00 No 25mg Take 25 mg by mouth daily. [facility] ondansetron (ZOFRAN (PF)) injection 4 mg 2019-10 23:15: 07 08-31 23:14 :07 No 4mg 4 mg, Slow IV Push, Q6HPRN, Starting Fri08/29/20 at 1715, Until Fri08/31/20 at 1714, Routine, Nausea and Vomiting (N/V) [facility] morpHINE injection 2 mg 2019-10 22:49: 42 08-30 22:48 :42 No 2mg 2 mg, Slow IV Push, Q4HPRN, Starting Fri08/29/20 at 1649, Until Fri08/30/20 at 1648, Routine, Pain (scale 7-10) [facility] ondansetron (ZOFRAN (PF)) injection 4 mg 2019-10 18:03: 34 08-29 22:50 :21 No 4mg 4 mg, Slow IV Push, Q6HPRN, Starting Fri08/29/20 at 1203, Until Fri08/29/20 at 1650, Routine, Nausea and Vomiting (N/V) [facility] ibuprofen (IBU) tablet 600 mg 2019-10 18:00: 00 Yes 600mg 600 mg, Oral, Q6H, First dose on Fri08/29/20 at 1200, Until Discontinu ed, Routine [facility] acetaminoph en (TYLENOL) tablet 500 mg 2019-10 18:00: 00 Yes 500mg 500 mg, Oral, Q6H, First dose on Fri08/29/20 at 1200, Until Discontinu ed, Routine [facility] lactated ringers IV infusion 1,000 mL 2019-10 17:00: 00 Yes 1000mL at 75 mL/hr, 1,000 mL, IV Infusion, CONTINUOUS , Starting Fri08/29/20 at 1100, Until Discontinu ed, Routine, PACU [facility] FENTanyl PF (SUBLIMAZE (PF)) injection 25 mcg 2019-10 16:57: 53 08-29 17:58 :11 No 25ug 25 mcg, Slow IV Push, Q5MIN PRN, 4 doses, Starting Fri08/29/20 at 1057, Until Fri08/29/20 at 1158, Routine, Pain (scale 4-6), PACU [facility] ondansetron (ZOFRAN (PF)) injection 4 mg 2019-10 16:57: 53 08-29 17:13 :00 No 4mg 4 mg, Slow IV Push, PRN, 1 dose, Starting Fri08/29/20 at 1057, Until Fri08/29/20 at 1113, Routine, Nausea and Vomiting (N/V), PACU [facility] traMADoL (ULTRAM) tablet 100 mg 2019-10 16:11: 10 08-29 22:51 :09 No 100mg 100 mg, Oral, Q6HPRN, Starting Fri08/29/20 at 1011, Until Fri08/29/20 at 1651, Routine, Pain (scale 7-10) [facility] traMADoL (ULTRAM) tablet 50 mg 2019-10 16:10: 52 Yes 50mg 50 mg, Oral, Q6HPRN, Starting Fri08/29/20 at 1010, Until Discontinu ed, Routine, Pain (scale 4-6) [facility] acetaminoph en ADULT (OFIRMEV) injection 1,000 mg 2019-10 00:15: 00 08-29 16:11 :33 No 1000mg 1,000 mg, IV Infusion, Administer over 15 Minutes, Q6H ABX, 4 doses, First dose on Fri08/28/20 at 1815, Last dose on Fri08/29/20 at 1215, Routine
Indicatio n: Non-periop erative Patient
Approved by: Per Policy (NPO Status) [facility] metroNIDAZO LE in NaCl (iso-os) (FLAGYL I.V.) RTU IV infusion 500 mg 2019-10 00:15: 00 08-29 16:11 :42 No 500mg 500 mg, IV Infusion, Q8H ABX, First dose on Fri08/28/20 at 1815, Until Discontinu ed, 100 mL
Reas on for Anti-Infec tive: Empiric Therapy for Suspected Infection< br>Empiric Therapy Site: Abdominal< br>Duratio n of therapy: 7 days [facility] levoFLOXaci n in D5W (LEVAQUIN) 750 mg/150 mL Piggyback 750 mg 2019-10 00:15: 00 08-29 16:11 :42 No 750mg 750 mg, IV Piggyback, Administer over 90 Minutes, Q24H ABX, First dose on Fri08/28/20 at 1815, Until Discontinu ed, FAWN
Re ason for Anti-Infec tive: Empiric Therapy for Suspected Infection< br>Empiric Therapy Site: Abdominal< br>Duratio n of therapy: 72 hours [facility] levothyroxi ne 125 mcg tablet 2019-10 00:00: 00 09-29 05:59 :00 No [id number] 312.5ug Take 2.5 tablets by mouth every morning for 30 days. [facility] lisinopriL 30 mg tablet 2019-10 00:00: 00 09-29 05:59 :00 No [id number] 30mg Take 1 tablet by mouth daily for 30 days. [facility] pantoprazol e (PROTONIX) 40 mg EC tablet 2019-10 00:00: 00 09-29 05:59 :00 No [id number] 40mg Take 1 tablet by mouth daily for 30 days. [facility] ibuprofen 800 mg tablet 2019-10 00:00: 00 09-04 05:59 :00 No [id number] 800mg Take 1 tablet by mouth every 8 (eight) hours as needed for Pain (scale 4-6) for up to 5 days. [facility] sulfur hexafluorid e microsphr (LUMASON) injection 5 mL 2019-10 21:30: 00 08-28 16:58 :00 No 5mL 5 mL, Intravenou s, ONCE, 1 dose, Fri08/28/20 at 1530, Routine
[employer] member approving Restricted medication : DARIAN DAVENPORT [facility] morpHINE injection 4 mg 2019-10 20:09: 08 08-29 16:11 :42 No 4mg 4 mg, Slow IV Push, Q4HPRN, Starting Fri08/28/20 at 1409, Until Tu08/29/20 at 1011, Routine, Pain (scale 7-10) [facility] morpHINE injection 2 mg 2019-10 18:15: 00 08-28 17:20 :00 No 2mg 2 mg, Slow IV Push, ONCE, 1 dose, Fri08/28/20 at 1215, Routine [facility] levothyroxi ne (SYNTHROID) tablet 200 mcg 2019-10 12:00: 00 Yes 200ug 200 mcg, Oral, QAM-0600, First dose (after last modificati on) on Fri08/28/20 at 0600, Until Discontinu ed, Routine [facility] enoxaparin (LOVENOX) injection 40 mg 2019-10 23:00: 00 Yes 40mg 40 mg, Subcutaneo us, DAILY, First dose on 08/27/20 at 1700, Until Discontinu ed, Routine [facility] ketorolac (TORADOL) injection 30 mg 2019-10 15:45: 00 08-27 14:53 :00 No 30mg 30 mg, Slow IV Push, ONCE, 1 dose, 08/27/20 at 0945, Routine
[employer] member approving Restricted medication : DOMINGO ANNE [facility] lisinopriL (PRINIVIL,Z ESTRIL) tablet 20 mg 2019-10 15:00: 00 Yes 20mg 20 mg, Oral, DAILY, First dose on 08/27/20 at 0900, Until Discontinu ed, Routine [facility] pantoprazol e (PROTONIX) EC tablet 40 mg 2019-10 15:00: 00 Yes 40mg 40 mg, Oral, DAILY, First dose on 08/27/20 at 0900, Until Discontinu ed, Routine [facility] aspirin chewable tablet 81 mg 2019-10 15:00: 00 Yes 81mg 81 mg, Oral, DAILY, First dose on 08/27/20 at 0900, Until Discontinu ed, [facility]othyroxi [facility] (SYNTHROID) tablet 300 mcg 2019-10 12:00: 00 08-27 14:38 :59 No 300ug 300 mcg, Oral, QAM-0600, First dose on 08/27/20 at 0600, Until Discontinu ed, Routine [facility] nicotine (NICODERM) 21 mg/24 hr patch 1 Patch 2019-10 08:30: 00 Yes 1{patch } 1 Patch, Topical, Administer over 24 Hours, Q24H, First dose on 08/27/20 at 0230, Until Discontinu ed, Routine [facility] acetaminoph en (TYLENOL) tablet 975 mg 2019-10 08:15: 00 08-27 07:56 :00 No 975mg 975 mg, Oral, ONCE, 1 dose, [place] 08/27/20 at 0215, FAWN [facility] iohexol (OMNIPAQUE 350 BULK-100 mL) injection 120 mL 2019-10 07:45: 00 08-27 07:34 :00 No 120mL 120 mL, Intravenou s, ONCE, 1 dose, [place] 08/27/20 at 0145, Routine [facility] traMADoL (ULTRAM) tablet 50 mg 2019-10 07:16: 43 08-29 07:15 :43 No 50mg 50 mg, Oral, Q8HPRN, Starting [place] 08/27/20 at 0116, Until Tu08/29/20 at 0115, Routine, Pain (scale 4-6) [facility] acetaminoph en (TYLENOL) tablet 650 mg 2019-10 07:16: 41 08-28 23:11 :03 No 650mg 650 mg, Oral, Q6HPRN, Starting [place] 08/27/20 at 0116, Until Fri08/28/20 at 1711, Routine, Pain (scale 1-3) [facility] morpHINE injection 2 mg 2019-10 07:14: 54 08-28 20:09 :18 No 2mg 2 mg, Slow IV Push, Q4HPRN, Starting [place] 08/27/20 at 0114, Until 08/28/20 at 1409, Routine, Pain (scale 7-10) [facility] nitroglycer in (NITROSTAT) sublingual tablet 0.4 mg 2019-10 07:03: 30 Yes .4mg 0.4 mg, Sublingual , Q5MIN PRN, Starting [place] 08/27/20 at 0103, Until Discontinu ed, Routine, Chest pain [facility] alum-mag hydroxide-s imeth (MAALOX PLUS / MAG-AL PLUS) 200-200-20 mg/5 mL suspension 30 mL 2019-10 07:02: 48 Yes 30mL 30 mL, Oral, Q6HPRN, Starting 08/27/20 at 0102, Until Discontinu ed, Routine, Indigestio n [facility] aspirin tablet 325 mg 2019-10 07:00: 00 08-27 06:16 :00 No 325mg 325 mg, Oral, ONCE, 1 dose, [place] 08/27/20 at 0100, STAT [facility] nitroglycer in (NITROSTAT) sublingual tablet 0.4 mg 2019-10 07:00: 00 08-27 06:16 :00 No .4mg 0.4 mg, Sublingual , ONCE, 1 dose, [place] 08/27/20 at 0100, [facility] aspirin chewable tablet 324 mg 07-10 14:00: 00 Yes 324mg 324 mg, Oral, DAILY, First dose on Fri07/10/20 at 0900, Until Discontinu ed, Routine [facility] iohexol (OMNIPAQUE 350 BULK-100 mL) injection 120 mL 07-10 05:15: 00 07-10 05:08 :00 No 120mL 120 mL, Intravenou s, ONCE, 1 dose, [facility] 07/10/20 at 0015, Routine [facility] codeine-gua ifenesin (ROBITUSSIN AC) 10-100 mg/5 mL solution 10 mL 07-10 04:30: 00 07-10 03:23 :00 No 10mL 10 mL, Oral, ONCE, 1 dose, [place] 07/09/20 at 2330, [facility] LORazepam (ATIVAN) injection 1 mg 07-10 03:45: 00 07-10 03:14 :00 No 1mg 1 mg, Slow IV Push, ONCE, 1 dose, [place] 07/09/20 at 2245, STAT [facility] morpHINE injection 4 mg 07-10 03:30: 00 07-10 03:16 :00 No 4mg 4 mg, Slow IV Push, ONCE, 1 dose, [place] 07/09/20 at 2230, STAT [facility] pantoprazol e (PROTONIX) 40 mg in NaCl 0.9% (NS) 100 mL MINI-BAG 07-10 02:30: 00 07-10 01:48 :00 No 40mg 40 mg, IV Piggyback, ONCE, 1 dose, 07/09/20 at 2130, 100 mL [facility] ondansetron (ZOFRAN (PF)) injection 4 mg 07-10 02:00: 00 07-10 01:03 :00 No 4mg 4 mg, Slow IV Push, ONCE, 1 dose, 07/09/20 at 2100, FAWN [facility] morpHINE injection 4 mg 07-10 02:00: 07-10 01:03 :00 No 4mg 4 mg, Slow IV Push, ONCE, 1 dose, 07/09/20 at 2100, STAT [facility] nitroglycer in (NITROSTAT) sublingual tablet 0.4 mg 07-10 02:00: 00 07-10 01:02 :00 No .4mg 0.4 mg, Sublingual , ONCE, 1 dose, 07/09/20 at 2100, FAWN [facility] pantoprazol e (PROTONIX) 40 mg EC tablet 07-10 00:00: 00 08-29 00:00 :00 No [id number] 40mg Take 1 tablet by mouth daily. [facility] dicyclomine 20 mg tablet 07-10 00:00: 08-29 00:00 :00 No [id number] 20mg Take 1 tablet by mouth every 6 (six) hours as needed for Abdominal pain. [facility] benzonatate 200 mg capsule 07-10 00:00: 08-29 00:00 :00 No [id number] 200mg Take 1 capsule by mouth 3 (three) times daily as needed for Cough. [facility] ibuprofen 800 mg tablet 2018-10 0 00:00: 08-29 00:00 :00 No [id number] 800mg Take 1 tablet by mouth every 8 (eight) hours as needed for Pain (scale 4-6). [facility] cyclobenzap rine 5 mg tablet 03-30 00:00: 00 08-29 00:00 :00 No [id number] 5mg Take 1 tablet by mouth 3 (three) times daily as needed for Muscle Spasms. [facility] LORazepam (ATIVAN) 0.5 mg tablet 06-14 00:00: 00 08-29 00:00 :00 No .5mg Take 1 tablet by mouth 2 (two) times daily as needed for Anxiety. [facility] levothyroxi ne 125 mcg tablet 05-11 10:32: 30 Yes 125ug Take 125 mcg by mouth every morning. [facility] Vital Signs Vital Name Observation Time Observation Value Comments S jeffersonzackary Systolic blood pressure 2024-02-04 18:48:00 142 mm[Hg] [facility] Diastolic blood pressure 2024-02-04 18:48:00 97 mm[Hg] [facility] Heart rate 2024-02-04 18:48:00 84 /min [facility] Respiratory rate 2024-02-04 18:48:00 16 /min [facility] Oxygen saturation in Arterial blood by Pulse oximetry 2024-02-04 18:48:00 97 /min [facility] Body temperature 2024-02-04 15:46:00 36.67 Nano [facility] Body height 2024-02-04 15:46:00 172.7 cm [facility] Body weight 2024-02-04 15:46:00 111.131 kg [facility] BMI 2024-02-04 15:46:00 37.25 kg/m2 [facility] Heart rate 2023-12-28 09:23:00 84 /min [facility] Respiratory rate 2023-12-28 09:23:00 16 /min [facility] Oxygen saturation in Arterial blood by Pulse oximetry 2023-12-28 09:23:00 96 /min [facility] Systolic blood pressure 2023-12-28 09:00:00 131 mm[Hg] [facility] Diastolic blood pressure 2023-12-28 09:00:00 81 mm[Hg] [facility] Body temperature 2023-12-28 08:13:00 37 Nano [facility] Body height 2023-12-28 08:13:00 172.7 cm [facility] Body weight 2023-12-28 08:13:00 110.632 kg [facility] BMI 2023-12-28 08:13:00 37.08 kg/m2 [facility] Systolic blood pressure 2023-11-06 08:00:00 117 mm[Hg] [facility] Diastolic blood pressure 2023-11-06 08:00:00 75 mm[Hg] [facility] Heart rate 2023-11-06 08:00:00 80 /min [facility] Body temperature 2023-11-06 08:00:00 37 Nano [facility] Respiratory rate 2023-11-06 08:00:00 18 /min [facility] Oxygen saturation in Arterial blood by Pulse oximetry 2023-11-06 08:00:00 97 /min [facility] Body height 2023-11-06 05:50:00 172.7 cm [facility] Body weight 2023-11-06 05:50:00 113.309 kg [facility] BMI 2023-11-06 05:50:00 37.98 kg/m2 [facility] Systolic blood pressure 2023-11-01 10:00:00 142 mm[Hg] [facility] Diastolic blood pressure 2023-11-01 10:00:00 81 mm[Hg] [facility] Heart rate 2023-11-01 10:00:00 79 /min [facility] Body temperature 2023-11-01 10:00:00 37.17 Nano [facility] Respiratory rate 2023-11-01 10:00:00 16 /min [facility] Oxygen saturation in Arterial blood by Pulse oximetry 2023-11-01 10:00:00 94 /min [facility] Body height 2023-11-01 05:37:00 172.7 cm [facility] Body weight 2023-11-01 05:37:00 111.131 kg [facility] BMI 2023-11-01 05:37:00 37.25 kg/m2 [facility] Systolic blood pressure 2023-10-23 08:00:00 140 mm[Hg] [facility] Diastolic blood pressure 2023-10-23 08:00:00 88 mm[Hg] [facility] Heart rate 2023-10-23 08:00:00 89 /min [facility] Oxygen saturation in Arterial blood by Pulse oximetry 2023-10-23 08:00:00 94 /min [facility] Respiratory rate 2023-10-23 05:53:00 16 /min [facility] Body temperature 2023-10-23 05:45:00 36.72 Nano [facility] Body height 2023-10-23 05:45:00 172.7 cm [facility] Body weight 2023-10-23 05:45:00 113.399 kg [facility] BMI 2023-10-23 05:45:00 38.01 kg/m2 [facility] Systolic blood pressure 2023-09-26 08:00:00 159 mm[Hg] [facility] Diastolic blood pressure 2023-09-26 08:00:00 80 mm[Hg] [facility] Heart rate 2023-09-26 08:00:00 75 /min [facility] Respiratory rate 2023-09-26 08:00:00 20 /min [facility] Oxygen saturation in Arterial blood by Pulse oximetry 2023-09-26 08:00:00 94 /min [facility] Body temperature 2023-09-26 05:02:00 36.72 Nano [facility] Systolic blood pressure 2023-08-24 08:14:00 140 mm[Hg] [facility] Diastolic blood pressure 2023-08-24 08:14:00 73 mm[Hg] [facility] Heart rate 2023-08-24 08:14:00 75 /min [facility] Body temperature 2023-08-24 08:14:00 36.67 Nano [facility] Respiratory rate 2023-08-24 08:14:00 18 /min [facility] Oxygen saturation in Arterial blood by Pulse oximetry 2023-08-24 08:14:00 96 /min [facility] Body height 2023-08-24 03:41:00 172.7 cm [facility] Body weight 2023-08-24 03:41:00 113.399 kg [facility] BMI 2023-08-24 03:41:00 38.01 kg/m2 [facility] Systolic blood pressure 2023-07-07 10:53:00 140 mm[Hg] [facility] Diastolic blood pressure 2023-07-07 10:53:00 83 mm[Hg] [facility] Heart rate 2023-07-07 10:53:00 75 /min [facility] Respiratory rate 2023-07-07 10:53:00 16 /min [facility] Oxygen saturation in Arterial blood by Pulse oximetry 2023-07-07 10:53:00 97 /min [facility] Body temperature 2023-07-07 08:57:00 36.44 Nano [facility] Body height 2023-07-07 08:57:00 172.7 cm [facility] Body weight 2023-07-07 08:57:00 113.399 kg [facility] BMI 2023-07-07 08:57:00 38.01 kg/m2 [facility] Systolic blood pressure 2023-05-26 03:30:00 140 mm[Hg] [facility] Diastolic blood pressure 2023-05-26 03:30:00 78 mm[Hg] [facility] Heart rate 2023-05-26 03:30:00 80 /min [facility] Respiratory rate 2023-05-26 03:30:00 23 /min [facility] Oxygen saturation in Arterial blood by Pulse oximetry 2023-05-26 03:30:00 94 /min [facility] Body temperature 2023-05-26 03:00:00 36.78 Nano [facility] Body weight 2023-05-25 22:19:00 121.564 kg [facility] BMI 2023-05-25 22:19:00 40.75 kg/m2 [facility] Systolic blood pressure 2023-02-21 01:51:00 123 mm[Hg] [facility] Diastolic blood pressure 2023-02-21 01:51:00 74 mm[Hg] [facility] Heart rate 2023-02-20 23:03:00 95 /min [facility] Body temperature 2023-02-20 23:03:00 38.28 Nano [facility] Respiratory rate 2023-02-20 23:03:00 18 /min [facility] Body height 2023-02-20 23:03:00 172.7 cm [facility] Body weight 2023-02-20 23:03:00 121.564 kg [facility] BMI 2023-02-20 23:03:00 40.75 kg/m2 [facility] Oxygen saturation in Arterial blood by Pulse oximetry 2023-02-20 23:03:00 97 /min [facility] Systolic blood pressure 2022-12-29 10:00:00 142 mm[Hg] [facility] Diastolic blood pressure 2022-12-29 10:00:00 78 mm[Hg] [facility] Heart rate 2022-12-29 10:00:00 71 /min [facility] Oxygen saturation in Arterial blood by Pulse oximetry 2022-12-29 09:57:00 96 /min [facility] Body temperature 2022-12-29 06:35:00 36.89 Nano [facility] Respiratory rate 2022-12-29 06:35:00 20 /min [facility] Body height 2022-12-29 06:35:00 172.7 cm [facility] Body weight 2022-12-29 06:35:00 121.745 kg [facility] BMI 2022-12-29 06:35:00 40.81 kg/m2 [facility] Systolic blood pressure 2022-11-21 08:14:00 162 mm[Hg] [facility] Diastolic blood pressure 2022-11-21 08:14:00 101 mm[Hg] [facility] Heart rate 2022-11-21 08:09:00 92 /min [facility] Body temperature 2022-11-21 08:09:00 37.11 Nano [facility] Respiratory rate 2022-11-21 08:09:00 16 /min [facility] Body height 2022-11-21 08:09:00 172.7 cm [facility] Body weight 2022-11-21 08:09:00 115.667 kg [facility] BMI 2022-11-21 08:09:00 38.77 kg/m2 [facility] Oxygen saturation in Arterial blood by Pulse oximetry 2022-11-21 08:09:00 97 /min [facility] Systolic blood pressure 2022-10-29 07:34:00 167 mm[Hg] [facility] Diastolic blood pressure 2022-10-29 07:34:00 97 mm[Hg] [facility] Heart rate 2022-10-29 07:34:00 93 /min [facility] Body temperature 2022-10-29 07:34:00 37.39 Nano [facility] Respiratory rate 2022-10-29 07:34:00 20 /min [facility] Body height 2022-10-29 07:34:00 172.7 cm [facility] Body weight 2022-10-29 07:34:00 113.399 kg [facility] BMI 2022-10-29 07:34:00 38.01 kg/m2 [facility] Oxygen saturation in Arterial blood by Pulse oximetry 2022-10-29 07:34:00 97 /min [facility] Systolic blood pressure 2022-06-02 05:00:00 165 mm[Hg] [facility] Diastolic blood pressure 2022-06-02 05:00:00 119 mm[Hg] [facility] Heart rate 2022-06-02 05:00:00 74 /min [facility] Respiratory rate 2022-06-02 05:00:00 23 /min [facility] Oxygen saturation in Arterial blood by Pulse oximetry 2022-06-02 05:00:00 95 /min [facility] Body temperature 2022-06-02 04:41:00 36.67 Nano [facility] Systolic blood pressure 2022-05-28 18:36:21 147 mm[Hg] [facility] Diastolic blood pressure 2022-05-28 18:36:21 97 mm[Hg] [facility] Heart rate 2022-05-28 18:36:21 62 /min [facility] Respiratory rate 2022-05-28 18:36:21 18 /min [facility] Oxygen saturation in Arterial blood by Pulse oximetry 2022-05-28 18:36:21 96 /min [facility] Body temperature 2022-05-28 15:06:00 37.22 Nano [facility] Body height 2022-05-28 15:06:00 172.7 cm [facility] Body weight 2022-05-28 15:06:00 124.739 kg [facility] BMI 2022-05-28 15:06:00 41.81 kg/m2 [facility] Systolic blood pressure 2022-05-06 06:42:00 137 mm[Hg] [facility] Diastolic blood pressure 2022-05-06 06:42:00 90 mm[Hg] [facility] Heart rate 2022-05-06 06:42:00 81 /min [facility] Respiratory rate 2022-05-06 06:42:00 16 /min [facility] Oxygen saturation in Arterial blood by Pulse oximetry 2022-05-06 06:42:00 94 /min [facility] Body temperature 2022-05-06 03:30:00 36.78 Nano [facility] Body height 2022-05-06 03:30:00 172.7 cm [facility] Body weight 2022-05-06 03:30:00 117.935 kg [facility] BMI 2022-05-06 03:30:00 39.53 kg/m2 [facility] Systolic blood pressure 2022-05-01 13:30:00 147 mm[Hg] [facility] Diastolic blood pressure 2022-05-01 13:30:00 91 mm[Hg] [facility] Heart rate 2022-05-01 13:30:00 73 /min [facility] Respiratory rate 2022-05-01 13:30:00 17 /min [facility] Oxygen saturation in Arterial blood by Pulse oximetry 2022-05-01 13:30:00 95 /min [facility] Body temperature 2022-05-01 12:28:00 36.78 Nano [facility] Body weight 2022-05-01 12:28:00 121.564 kg [facility] BMI 2022-05-01 12:28:00 40.75 kg/m2 [facility] Systolic blood pressure 2022-02-08 07:00:00 133 mm[Hg] [facility] Diastolic blood pressure 2022-02-08 07:00:00 94 mm[Hg] [facility] Heart rate 2022-02-08 07:00:00 77 /min [facility] Respiratory rate 2022-02-08 07:00:00 21 /min [facility] Oxygen saturation in Arterial blood by Pulse oximetry 2022-02-08 07:00:00 95 /min [facility] Body temperature 2022-02-08 06:04:00 36.5 Nano [facility] Body height 2022-02-08 06:04:00 172.7 cm [facility] Body weight 2022-02-08 06:04:00 113.399 kg [facility] BMI 2022-02-08 06:04:00 38.01 kg/m2 [facility] Systolic blood pressure 2021-10-14 22:36:00 152 mm[Hg] [facility] Diastolic blood pressure 2021-10-14 22:36:00 87 mm[Hg] [facility] Heart rate 2021-10-14 22:36:00 95 /min [facility] Body temperature 2021-10-14 22:36:00 36.94 Nano [facility] Respiratory rate 2021-10-14 22:36:00 18 /min [facility] Body weight 2021-10-14 22:36:00 122.29 kg [facility] BMI 2021-10-14 22:36:00 40.99 kg/m2 [facility] Oxygen saturation in Arterial blood by Pulse oximetry 2021-10-14 22:36:00 97 /min [facility] Systolic blood pressure 2021-05-15 17:15:00 148 mm[Hg] [facility] Diastolic blood pressure 2021-05-15 17:15:00 84 mm[Hg] [facility] Heart rate 2021-05-15 17:15:00 99 /min [facility] Body temperature 2021-05-15 17:15:00 36.5 Nano [facility] Respiratory rate 2021-05-15 17:15:00 20 /min [facility] Body weight 2021-05-15 17:15:00 117.073 kg [facility] BMI 2021-05-15 17:15:00 39.24 kg/m2 [facility] Oxygen saturation in Arterial blood by Pulse oximetry 2021-05-15 17:15:00 97 /min [facility] Systolic blood pressure 2021-05-08 18:10:00 156 mm[Hg] [facility] Diastolic blood pressure 2021-05-08 18:10:00 95 mm[Hg] [facility] Heart rate 2021-05-08 18:10:00 99 /min [facility] Body temperature 2021-05-08 18:10:00 36.06 Nano [facility] Respiratory rate 2021-05-08 18:10:00 18 /min [facility] Body weight 2021-05-08 18:10:00 116.756 kg [facility] BMI 2021-05-08 18:10:00 39.14 [facility] Arterial blood by Pulse oximetry 2021-05-08 18:10:00 96 /min [facility] Systolic blood pressure 2021-05-06 09:26:00 145 mm[Hg] [facility] Diastolic blood pressure 2021-05-06 09:26:00 93 mm[Hg] [facility] Heart rate 2021-05-06 09:26:00 79 /min [facility] Respiratory rate 2021-05-06 09:26:00 20 /min [facility] Oxygen saturation in Arterial blood by Pulse oximetry 2021-05-06 09:26:00 97 /min [facility] Body temperature 2021-05-06 07:56:00 37.11 Nano [facility] Body height 2021-05-06 07:56:00 172.7 cm [facility] Body weight 2021-05-06 07:56:00 118.434 kg [facility] BMI 2021-05-06 07:56:00 39.70 kg/m2 [facility] Systolic blood pressure 2021-03-15 06:19:00 127 mm[Hg] [facility] Diastolic blood pressure 2021-03-15 06:19:00 79 mm[Hg] [facility] Heart rate 2021-03-15 06:19:00 78 /min [facility] Respiratory rate 2021-03-15 06:19:00 23 /min [facility] Oxygen saturation in Arterial blood by Pulse oximetry 2021-03-15 06:19:00 96 /min [facility] Body temperature 2021-03-15 03:05:45 37 Nano [facility] Body weight 2021-03-15 02:46:00 114.76 kg [facility] BMI 2021-03-15 02:46:00 38.47 kg/m2 [facility] Systolic blood pressure 2021-03-15 06:19:00 127 mm[Hg] [facility] Diastolic blood pressure 2021-03-15 06:19:00 79 mm[Hg] [facility] Heart rate 2021-03-15 06:19:00 78 /min [facility] Respiratory rate 2021-03-15 06:19:00 23 /min [facility] Oxygen saturation in Arterial blood by Pulse oximetry 2021-03-15 06:19:00 96 /min [facility] Body temperature 2021-03-15 03:05:45 37 Nano [facility] Body weight 2021-03-15 02:46:00 114.76 kg [facility] BMI 2021-03-15 02:46:00 38.47 kg/m2 [facility] Systolic blood pressure 2020-09-09 00:10:00 124 mm[Hg] [facility] Diastolic blood pressure 2020-09-09 00:10:00 77 mm[Hg] [facility] Heart rate 2020-09-09 00:10:00 83 /min [facility] Respiratory rate 2020-09-09 00:10:00 16 /min [facility] Oxygen saturation in Arterial blood by Pulse oximetry 2020-09-09 00:10:00 97 /min [facility] Body temperature 2020-09-08 23:14:00 37.39 Nano [facility] Body weight 2020-09-08 22:49:00 107.956 kg [facility] BMI 2020-09-08 22:49:00 36.19 kg/m2 [facility] Systolic blood pressure 2020-09-09 00:10:00 124 mm[Hg] [facility] Diastolic blood pressure 2020-09-09 00:10:00 77 mm[Hg] [facility] Heart rate 2020-09-09 00:10:00 83 /min [facility] Respiratory rate 2020-09-09 00:10:00 16 /min [facility] Oxygen saturation in Arterial blood by Pulse oximetry 2020-09-09 00:10:00 97 /min [facility] Body temperature 2020-09-08 23:14:00 37.39 Nano [facility] Body weight 2020-09-08 22:49:00 107.956 kg [facility] BMI 2020-09-08 22:49:00 36.19 kg/m2 [facility] Systolic blood pressure 2020-09-06 19:30:00 115 mm[Hg] [facility] Diastolic blood pressure 2020-09-06 19:30:00 65 mm[Hg] [facility] Heart rate 2020-09-06 19:30:00 67 /min [facility] Body temperature 2020-09-06 19:30:00 36.83 Nano [facility] Respiratory rate 2020-09-06 19:30:00 19 /min [facility] Oxygen saturation in Arterial blood by Pulse oximetry 2020-09-06 19:30:00 99 /min [facility] Body weight 2020-09-06 15:41:00 107.956 kg [facility] BMI 2020-09-06 15:41:00 36.19 kg/m2 [facility] Systolic blood pressure 2020-09-06 19:30:00 115 mm[Hg] [facility] Diastolic blood pressure 2020-09-06 19:30:00 65 mm[Hg] [facility] Heart rate 2020-09-06 19:30:00 67 /min [facility] Body temperature 2020-09-06 19:30:00 36.83 Nano [facility] Respiratory rate 2020-09-06 19:30:00 19 /min [facility] Oxygen saturation in Arterial blood by Pulse oximetry 2020-09-06 19:30:00 99 /min [facility] Body weight 2020-09-06 15:41:00 107.956 kg [facility] BMI 2020-09-06 15:41:00 36.19 kg/m2 [facility] Systolic blood pressure 2020-08-30 13:11:00 136 mm[Hg] [facility] Diastolic blood pressure 2020-08-30 13:11:00 77 mm[Hg] [facility] Heart rate 2020-08-30 13:11:00 74 /min [facility] Body temperature 2020-08-30 13:11:00 36.5 Nano [facility] Respiratory rate 2020-08-30 13:11:00 18 /min [facility] Oxygen saturation in Arterial blood by Pulse oximetry 2020-08-30 13:11:00 96 /min [facility] Body weight 2020-08-30 09:00:00 107.956 kg [facility] BMI 2020-08-30 09:00:00 36.19 kg/m2 [facility] Body height 2020-08-27 07:49:00 172.7 cm [facility] Systolic blood pressure 2020-08-30 13:11:00 136 mm[Hg] [facility] Diastolic blood pressure 2020-08-30 13:11:00 77 mm[Hg] [facility] Heart rate 2020-08-30 13:11:00 74 /min [facility] Body temperature 2020-08-30 13:11:00 36.5 Nano [facility] Respiratory rate 2020-08-30 13:11:00 18 /min [facility] Oxygen saturation in Arterial blood by Pulse oximetry 2020-08-30 13:11:00 96 /min [facility] Body weight 2020-08-30 09:00:00 107.956 kg [facility] BMI 2020-08-30 09:00:00 36.19 kg/m2 [facility] Body height 2020-08-27 07:49:00 172.7 cm [facility] Systolic blood pressure 2020-07-10 05:30:00 123 mm[Hg] [facility] Diastolic blood pressure 2020-07-10 05:30:00 77 mm[Hg] [facility] Heart rate 2020-07-10 05:30:00 75 /min [facility] 2020-07-10 05:30:00 19 /min [facility] Oxygen saturation in Arterial blood by Pulse oximetry 2020-07-10 05:30:00 97 /min [facility] Body temperature 2020-07-10 00:48:00 37.39 Nano [facility] Body height 2020-07-10 00:48:00 172.7 cm [facility] Body weight 2020-07-10 00:43:00 99.791 kg [facility] BMI 2020-07-10 00:43:00 33.45 kg/m2 [facility] Systolic blood pressure 2020-07-10 05:30:00 123 mm[Hg] [facility] Diastolic blood pressure 2020-07-10 05:30:00 77 mm[Hg] [facility] Heart rate 2020-07-10 05:30:00 75 /min [facility] Respiratory rate 2020-07-10 05:30:00 19 /min [facility] Oxygen saturation in Arterial blood by Pulse oximetry 2020-07-10 05:30:00 97 /min [facility] Body temperature 2020-07-10 00:48:00 37.39 Nano [facility] Body height 2020-07-10 00:48:00 172.7 cm [facility] Body weight 2020-07-10 00:43:00 99.791 kg [facility] BMI 2020-07-10 00:43:00 33.45 kg/m2 [facility] Procedures Procedure Date / Time Performed Performing Clinician Source URINALYSIS 2024-02-04 18:16:00 [facility] CT ABDOMEN PELVIS W CONTRAST 2024-02-04 16:52:00 Babs Bustamante [facility] LIPASE 2024-02-04 16:00:00 [facility] COMP. METABOLIC PANEL ([id number]) 2024-02-04 16:00:00 Babs Bustamante [facility] CBC WITH DIFF 2024-02-04 16:00:00 Babs Bustamante [facility] CONSENT/REFUSAL FOR DIAGNOSIS AND TREATMENT 2023-12-28 08:06:27 Doctor Unassigned, Hydro [facility] EKG-12 LEAD 2023-11-06 08:26:13 Nidia Solano [facility] LIPASE 2023-11-06 06:15:00 Nidia Solano [facility] MAGNESIUM 2023-11-06 06:15:00 [facility] COMP. METABOLIC PANEL ([id number]) 2023-11-06 06:15:00 Nidia Solano [facility] CBC WITH DIFF 2023-11-06 06:15:00 Nidia Solano [facility] URINALYSIS 2023-11-06 06:15:00 Nidia Solano [facility] CONSENT/REFUSAL FOR DIAGNOSIS AND TREATMENT 2023-11-06 05:40:44 Doctor Unassigned, Hydro [facility] CT ABDOMEN PELVIS W CONTRAST 2023-11-01 08:32:40 Jose Francisco Walters [facility] LIPASE 2023-11-01 05:45:00 Jose Francisco Walters [facility] COMP. METABOLIC PANEL ([id number]) 2023-11-01 05:45:00 Jose Francisco Walters [facility] CBC WITH DIFF 2023-11-01 05:45:00 Jose [facility] URINALYSIS 2023-11-01 05:45:00 Jose Francisco Walters [facility] POCT GLUCOSE (AUTOMATED) 2023-11-01 05:41:00 Lena Walters [facility] CONSENT/REFUSAL FOR DIAGNOSIS AND TREATMENT 2023-11-01 05:29:45 Doctor Unassigned, Hydro [facility] CT ABDOMEN PELVIS W CONTRAST 2023-10-23 07:06:44 Chapito Contreras [facility] LIPASE 2023-10-23 05:50:00 Chapito Contreras [facility] COMP. METABOLIC PANEL ([id number]) 2023-10-23 05:50:00 Chapito Contreras [facility] CBC WITH DIFF 2023-10-23 05:50:00 Chapito Contreras [facility] URINALYSIS 2023-10-23 05:50:00 Chapito Contreras [facility] CONSENT/REFUSAL FOR DIAGNOSIS AND TREATMENT 2023-10-23 05:34:08 Doctor Unassigned, Hydro [facility] URINALYSIS 2023-09-26 06:12:00 Loren Tam [facility] LIPASE 2023-09-26 05:12:00 Jsoe [facility] HEPATIC FUNCTION PANEL ([id number]) (ALB,T.PRO,BILI T,BU/BC,ALT,AST,ALK PHOS) 2023-09-26 05:12:00 Jose [facility] BASIC METABOLIC PANEL (NA, K, CL, CO2, GLUCOSE, BUN, CREATININE, CA) 2023-09-26 05:12:00 Jose [facility] CBC WITH DIFF 2023-09-26 05:12:00 Jose [facility] NOTICE OF PRIVACY PRACTICES 2023-09-26 04:50:48 Doctor Unassigned, Hydro [facility] CONSENT/REFUSAL FOR DIAGNOSIS AND TREATMENT 2023-09-26 04:50:08 Doctor Unassigned, Hydro [facility] CT CHEST PULMONARY ANGIOGRAM 2023-08-24 08:02:29 Patrick Vergara [facility] XR CHEST 1 VW 2023-08-24 04:38:16 Patrick Vergara [facility] TROPONIN I 2023-08-24 04:29:00 Patrick Vergara [facility] COMP. METABOLIC PANEL ([id number]) 2023-08-24 04:29:00 Patrick Vergara [facility] CBC WITH DIFF 2023-08-24 04:29:00 [facility] CONSENT/REFUSAL FOR DIAGNOSIS AND TREATMENT 2023-08-24 03:41:11 Doctor Unassigned, Hydro [facility] LIPASE 2023-07-07 09:22:00 Chapito Contreras [facility] TROPONIN I 2023-07-07 09:22:00 Chapito Contreras [facility] COMP. METABOLIC PANEL ([id number]) 2023-07-07 09:22:00 Chapito Contreras [facility] CBC WITH DIFF 2023-07-07 09:22:00 Chapito Contreras [facility] URINALYSIS 2023-07-07 09:22:00 Chapito Contreras [facility] CONSENT/REFUSAL FOR DIAGNOSIS AND TREATMENT 2023-07-07 08:49:51 Doctor Unassigned, Hydro [facility] POCT GLUCOSE (AUTOMATED) 2023-05-26 02:17:00 Nidia Solano [facility] URINALYSIS 2023-05-26 01:24:00 Nidia Solano [facility] POCT GLUCOSE (AUTOMATED) 2023-05-26 01:22:00 Nidia Solano [facility] TROPONIN I 2023-05-26 00:54:00 Nidia Solano [facility] COVID-19 (ID NOW RAPID TESTING) 2023-05-26 00:54:00 Nidia Solano [facility] ASSIGNMENT OF BENEFITS 2023-05-26 00:29:59 Docto r Unassigned, Hydro [facility] XR CHEST 1 VW 2023-05-25 22:41:21 Nidia Solano [facility] LIPASE 2023-05-25 22:33:00 Nidia Solano [facility] MAGNESIUM 2023-05-25 22:33:00 Nidia Solano [facility] TROPONIN I 2023-05-25 22:33:00 Nidia Solano [facility] COMP. METABOLIC PANEL ([id number]) 2023-05-25 22:33:00 Nidia Solano [facility] CBC WITH DIFF 2023-05-25 22:33:00 Nidia Solano [facility] N-TERMINAL PRO-BNP 2023-05-25 22:33:00 Nidia Solano [facility] CONSENT/REFUSAL FOR DIAGNOSIS AND TREATMENT 2023-05-25 22:07:05 Doctor Unassigned, Hydro [facility] COVID-19 (ID NOW RAPID TESTING) 2023-02-20 23:30:00 Sofia Escobar [facility] CONSENT/REFUSAL FOR DIAGNOSIS AND TREATMENT 2023-02-20 22:54:00 Doctor Unassigned, [facility] CT ABDOMEN PELVIS W CONTRAST 2022-12-29 08:28:18 Chapito Contreras [facility] LIPASE 2022-12-29 07:11:00 Chapito oCntreras [facility] COMP. METABOLIC PANEL ([id number]) 2022-12-29 07:11:00 Chapito Contreras [facility] CBC WITH DIFF 2022-12-29 07:11:00 Chapito Contreras [facility] URINALYSIS 2022-12-29 07:11:00 Ben Nmdania [facility] CONSENT/REFUSAL FOR DIAGNOSIS AND TREATMENT 2022-12-29 06:24:27 Doctor Unassigned, Hydro [facility] CONSENT/REFUSAL FOR DIAGNOSIS AND TREATMENT 2022-11-21 08:05:19 Doctor Unassigned, [facility] RAPID STREP SCREEN FOR GROUP A 2022-10-29 07:36:00 Marie Morales [facility] CONSENT/REFUSAL FOR DIAGNOSIS AND TREATMENT 2022-10-29 07:23:03 Doctor Unassigned, [facility] CONSENT/REFUSAL FOR DIAGNOSIS AND TREATMENT 2022-06-02 04:34:17 Doctor Unassigned, [facility] FREE T4 2022-05-28 16:06:00 Saqib Clarke [facility] THYROID STIMULATING HORMONE 2022-05-28 16:06:00 Saqib Clarke [facility] COMP. METABOLIC PANEL ([id number]) 2022-05-28 16:06:00 Saqib Clarke [facility] CBC WITH DIFF 2022-05-28 16:06:00 Saqib Clarke [facility] FREE T3 2022-05-28 16:06:00 Saqib Clarke [facility] CONSENT/REFUSAL FOR DIAGNOSIS AND TREATMENT 2022-05-28 14:55:38 Doctor Unassigned, Hydro [facility] CT ABDOMEN PELVIS W CONTRAST 2022-05-06 06:06:56 Nidia Solano [facility] LIPASE 2022-05-06 05:17:00 Nidia Solano [facility] MAGNESIUM 2022-05-06 05:17:00 Nidia Solano [facility] TROPONIN I 2022-05-06 05:17:00 Nidia Solano [facility] COMP. METABOLIC PANEL ([id number]) 2022-05-06 05:17:00 Nidia Solano [facility] CBC WITH DIFF 2022-05-06 05:17:00 Nidia Solano [facility] URINALYSIS 2022-05-06 05:17:00 Nidia Solano [facility] RAPID INFLUENZA A/B 2022-05-06 03:48:00 Nidia Solano [facility] COVID-19 (ID NOW RAPID TESTING) 2022-05-06 03:48:00 Nidia Solano [facility] CONSENT/REFUSAL FOR DIAGNOSIS AND TREATMENT 2022-05-06 03:22:49 Doctor Unassigned, [facility] COMP. METABOLIC PANEL ([id number]) 2022-05-01 12:42:00 Singer [facility] CBC WITH DIFF 2022-05-01 12:42:00 Singer [facility] CONSENT/REFUSAL FOR DIAGNOSIS AND TREATMENT 2022-05-01 12:23:44 Doctor Unassigned, Hydro [facility] URINALYSIS 2022-02-08 06:27:00 [facility] URINE DRUG (IMMUNOASSAY) - COMPREHENSIVE DRUG SCREEN W/O REFLEX 2022-02-08 06:27:00 Benjamin Ashford [facility] LIPASE 2022-02-08 06:15:00 Benjamin Ashford [facility] TROPONIN I 2022-02-08 06:15:00 [facility] COMP. METABOLIC PANEL ([id number]) 2022-02-08 06:15:00 Benjamin Ashford [facility] ETHANOL 2022-02-08 06:15:00 Benjamin Ashford [facility] CBC WITH DIFF 2022-02-08 06:15:00 Benjamin Ashford [facility] PROTHROMBIN TIME / INR 2022-02-08 06:15:00 Jeremy Ashford [facility] ACTIVATED PARTIAL THRMPLAS ELAINE 2022-02-08 06:15:00 Benjamin Ashford [facility] N-TERMINAL PRO-BNP 2022-02-08 06:15:00 Benjamin Ashford [facility] NOTICE OF PRIVACY PRACTICES 2022-02-08 06:01:50 Doctor Unassigned, [facility] CONSENT/REFUSAL FOR DIAGNOSIS AND TREATMENT 2022-02-08 05:59:20 Doctor Unassigned, [facility] CT ABDOMEN PELVIS W CONTRAST 2021-10-15 00:40:39 Marie Morales [facility] LIPASE 2021-10-15 00:26:00 Marie Morales [facility] TROPONIN I 2021-10-15 00:26:00 Marie Morales [facility] COMP. METABOLIC PANEL ([id number]) 2021-10-15 00:26:00 Marie Morales [facility] CBC WITH DIFF 2021-10-15 00:26:00 Marie Morales [facility] NOTICE OF PRIVACY PRACTICES 2021-10-14 22:18:20 Doctor Unassigned, Hydro [facility] CONSENT/REFUSAL FOR DIAGNOSIS AND TREATMENT 2021-10-14 22:17:56 Doctor Unassigned, [facility] CT ABDOMEN PELVIS W CONTRAST 2021-03-15 04:54:23 Chapito Contreras [facility] COVID-19 (ID NOW RAPID TESTING) 2021-03-15 03:34:00 Chapito Contreras [facility] URINALYSIS 2021-03-15 03:16:00 Chapito Contreras [facility] COMP. METABOLIC PANEL ([id number]) 2021-03-15 03:11:00 Chapito Contreras [facility] CBC WITH DIFF 2021-03-15 03:11:00 Chapito Contreras [facility] CONSENT/REFUSAL FOR DIAGNOSIS AND TREATMENT 2021-03-15 02:38:38 Doctor Unassigned, Hydro [facility] LIPASE 2020-09-08 23:14:00 [facility] COMP. METABOLIC PANEL ([id number]) 2020-09-08 23:14:00 Singer [facility] CBC WITH DIFF 2020-09-08 23:14:00 [facility] CONSENT/REFUSAL FOR DIAGNOSIS AND TREATMENT 2020-09-08 22:38:49 Doctor Unassigned, Hydro [facility] CT ABDOMEN PELVIS W CONTRAST 2020-09-06 17:05:33 Nidia Solano [facility] LACTIC ACID WHOLE BLOOD 2020-09-06 16:31:00 Nidia Solano [facility] LIPASE 2020-09-06 16:11:00 Nidia Solano [facility] MAGNESIUM 2020-09-06 16:11:00 Nidia Solano [facility] COMP. METABOLIC PANEL ([id number]) 2020-09-06 16:11:00 Nidia Solano Haily [facility] CBC WITH DIFF 2020-09-06 16:11:00 Nidia Solano [facility] NOTICE OF PRIVACY PRACTICES 2020-09-06 15:30:39 Doctor Unassigned, Hydro [facility] CONSENT/REFUSAL FOR DIAGNOSIS AND TREATMENT 2020-09-06 15:30:28 Doctor Unassigned, Hydro [facility] COMP. METABOLIC PANEL (08896) 2020-08-30 08:39:00 Babs Bustamante [facility] CBC WITH DIFF 2020-08-30 08:39:00 Babs Bustamante [facility] US ABDOMEN COMPLETE 2020-08-28 18:11:06 Patrick No [facility] ECHO ROUTINE W/DOPPLER COLOR 2020-08-28 16:34:45 Gricelda No [facility] HEPATIC FUNCTION PANEL (04917) (ALB,T.PRO,BILI T,BU/BC,ALT,AST,ALK PHOS) 2020-08-28 10:16:00 Favio Chang [facility] BASIC METABOLIC PANEL (NA, K, CL, CO2, GLUCOSE, BUN, CREATININE, CA) 2020-08-28 10:16:[address] [facility] TROPONIN I 2020-08-27 18:11:00 Oneal [facility] POCT GLUCOSE (AUTOMATED) 2020-08-27 18:02:00 Clau No [facility] POCT GLUCOSE (AUTOMATED) 2020-08-27 13:49:00 Clau No [facility] TROPONIN I 2020-08-27 11:35:00 Oneal [facility] CT ABDOMEN PELVIS W WO CONTRAST 2020-08-27 07:38:[address] [facility] COVID-19 (ID NOW RAPID TESTING) 2020-08-27 06:21:00 Dejon [facility] URINALYSIS 2020-08-27 06:20:00 [facility] ADC / LCC - DRUG SCREEN TRIAGE 2020-08-27 06:20:00 Dejon [facility] XR CHEST 1 VW 2020-08-27 06:05:42 Benjamin Ashford [facility] LIPASE 2020-08-27 05:58:00 [facility] TROPONIN I 2020-08-27 05:58:00 [facility] THYROID STIMULATING HORMONE 2020-08-27 05:58:[address] [facility] HEPATIC FUNCTION PANEL (74819) (ALB,T.PRO,BILI T,BU/BC,ALT,AST,ALK PHOS) 2020-08-27 05:58:00 [facility]OL[facility] (NA, K, CL, CO2, GLUCOSE, BUN, CREATININE, CA) 2020-08-27 05:58:00 Dejon [facility] LIPID PANEL (83082)(TOTAL CHOLESTEROL, TRIGLYCERIDES, HDL) 2020-08-27 05:58:00 Oneal, [facility] ETHANOL 2020-08-27 05:58:00 [facility] CBC WITH DIFF 2020-08-27 05:58:00 Benjamin Ashford [facility] PROTHROMBIN TIME / INR 2020-08-27 05:58:00 Jeremy Ashford [facility] ACTIVATED PARTIAL THRMPLAS ELAINE 2020-08-27 05:58:00 Benjamin Ashford [facility] EKG-12 LEAD 2020-08-27 05:54:03 Benjamin Ashford [facility] NOTICE OF PRIVACY PRACTICES 2020-08-27 05:44:26 Doctor Unassigned, Hydro [facility] CONSENT/REFUSAL FOR DIAGNOSIS AND TREATMENT 2020-08-27 05:43:44 Doctor Unassigned, Hydro [facility] CONSENT/REFUSAL FOR DIAGNOSIS AND TREATMENT 2020-08-27 05:43:43 Doctor Unassigned, Hydro [facility] CT ABDOMEN PELVIS W CONTRAST 2020-07-10 05:12:21 Chapito Contreras [facility] TROPONIN I 2020-07-10 03:49:00 Chapito Contrersa [facility] ADC / LCC - DRUG SCREEN TRIAGE 2020-07-10 03:13:00 Chapito Contreras [facility] XR CHEST 1 VW 2020-07-10 01:05:14 Chapito Contreras [facility] LIPASE 2020-07-10 00:55:00 Chapito Contreras [facility] TROPONIN I 2020-07-10 00:55:00 Chapito Contreras [facility] COMP. METABOLIC PANEL (23096) 2020-07-10 00:55:00 Chapito Contreras [facility] CBC WITH DIFF 2020-07-10 00:55:00 Chapito Contreras [facility] PROTHROMBIN TIME / INR 2020-07-10 00:55:00 Yesica Contreras [facility] D-DIMER 2020-07-10 00:55:00 Chapito Contreras [facility] COVID-19 (ID NOW RAPID TESTING) 2020-07-10 00:55:00 Chapito Contreras [facility] EKG-12 LEAD 2020-07-10 00:52:35 Chapito Contreras [facility] Encounters Start Date/Time End Date/Time Encounter Type Admission Type Attending [facility] Care Facility Care Department Encounter ID Source 2024-02-09 00:00:00 2024-03-13 18:08:36 Patient Secure Msg Doctor Unassigned, Hydro [facility] 1.2.840.114 350.1.13.10 4.2.7.2.686 [id number] [facility] 2024-02-04 10:45:00 2024-02-04 14:36:00 Emergency X BABS BUSTAMANTE [facility] ERT [id number] [facility] 2024-02-04 10:45:00 2024-02-04 14:36:00 Emergency Babs Bustamante [facility] 1.2.840.114 350.1.13.10 4.2.7.2.686 [id number] [facility] 2023-12-28 03:16:00 2023-12-28 04:32:00 Emergency X CHAPITO CONTRERAS [facility] ERT [id number] [facility] 2023-12-28 03:16:00 2023-12-28 04:32:00 Emergency Chapito Contreras [facility] 1.2.840.114 350.1.13.10 4.2.7.2.686 [id number] [facility] 2023-11-05 23:52:00 2023-11-06 02:37:00 Emergency X Nidia SOLANO [facility] ERT [id number] [facility] 2023-11-05 23:52:00 2023-11-06 02:37:00 Emergency Nidia Solano [facility] 1.2.840.114 350.1.13.10 4.2.7.2.686 [id number] [facility] 2023-10-31 23:33:00 2023-11-01 04:19:00 Emergency X JOSE FRANCISCO WALTERS [facility] ERT [id number] [facility] 2023-10-31 23:33:00 2023-11-01 04:19:00 Emergency Jose Francisco Walters [facility] 1.2840.114 350.1.13.10 4.2.7.2.686 [id number] [facility] 2023-10-22 23:39:00 2023-10-23 02:31:00 Emergency X CHAPITO CONTRERAS [facility] ERT [id number] [facility] 2023-10-22 23:39:00 2023-10-23 02:31:00 Emergency Chapito Contreras Clau [facility] 1.840.114 350.1.13.10 4.2.7.2.686 [id number] [facility] 2023-09-25 23:04:00 2023-09-26 02:30:00 Emergency X LOREN TAM HEE-KWANG [facility] ERT [id number] [facility] 2023-09-25 23:04:00 2023-09-26 02:30:00 Emergency Loren Tam [facility] 1.2840.114 350.1.13.10 4.2.7.2.686 [id number] [facility] 2023-08-25 00:00:00 2023-08-25 00:00:00 Patient Secure Msg Doctor Unassigned, Hydro [facility] 1.2840.114 350.1.13.10 4.2.7.2.686 [id number] [facility] 2023-08-23 22:43:00 2023-08-24 02:41:00 Emergency Patrick Vergara [facility] 1.2.840.114 350.1.13.10 4.2.7.2.686 [id number] [facility] 2023-08-23 22:43:00 2023-08-24 02:41:00 Emergency X PATRICK VERGARA [facility] ERT [id number] [facility] 2023-07-07 03:51:00 2023-07-07 05:56:00 Emergency X CHAPITO CONTRERAS [facility] ERT [id number] [facility] 2023-07-07 03:51:00 2023-07-07 05:56:00 Emergency Chapito Contreras [facility] 1.2.840.114 350.1.13.10 4.2.7.2.686 [id number] [id number] [facility] 2023-05-25 17:20:00 2023-05-25 22:37:00 Emergency X Nidia SOLANO [facility] ERT [id number] [facility] 2023-05-25 17:20:00 2023-05-25 22:37:00 Emergency Nidia Solano [facility] 1.2.840.114 350.1.13.10 4.2.7.2.686 [id number] [id number] [facility] 2023-02-20 18:06:00 2023-02-20 21:03:00 Emergency X SOFIA ESCOBAR TIMOTHY [facility] ERT [id number] [facility] 2023-02-20 18:06:00 2023-02-20 21:03:00 Emergency Sofia Escobar [facility] 1.2.840.114 350.1.13.10 4.2.7.2.686 [id number] [id number] [facility] 2023-02-20 00:00:00 2023-02-20 00:00:00 Orders Only Doctor Unassigned, Hydro [facility] 1.2.840.114 350.1.13.10 4.2.7.2.686 [id number] [facility] 2022-12-29 00:24:00 2022-12-29 05:29:00 Emergency X CHAPITO CONTRERAS [facility] ERT [id number] [facility] 2022-12-29 00:24:00 2022-12-29 05:29:00 Emergency Chapito Contreras [facility] 1.2.840.114 350.1.13.10 4.2.7.2.686 [id number] [id number] [facility] 2022-11-21 02:14:00 2022-11-21 03:04:00 Emergency X PATRICK VERGARA [facility] ERT [id number] [facility] 2022-11-21 02:14:00 2022-11-21 03:04:00 Emergency Patrick Vergara [facility] 1.2.840.114 350.1.13.10 4.2.7.2.686 [id number] [facility] 2022-10-29 01:37:00 2022-10-29 02:25:00 Emergency X MARIE MORALES [facility] ERT [id number] [facility] 2022-10-29 01:37:00 2022-10-29 02:25:00 Emergency Marie Morales [facility] 1.2.840.114 350.1.13.10 4.2.7.2.686 [id number] [facility] 2022-06-01 23:34:00 2022-06-02 00:39:00 Emergency X CLARKESAQIB [facility] ERT [id number] [facility] 2022-06-01 23:34:00 2022-06-02 00:39:00 Emergency Saqib Clarke [facility] 1.2.840.114 350.1.13.10 4.2.7.2.686 [id number] [id number] [facility] 2022-05-28 11:00:00 2022-05-28 13:39:00 Emergency SAQIB MEDRANO [facility] ERT [id number] [facility] 2022-05-28 11:00:00 2022-05-28 13:39:00 Emergency Saqib Clarke [facility] 1.2.840.114 350.1.13.10 4.2.7.2.686 [id number] [facility] 2022-05-05 22:33:00 2022-05-06 01:49:00 Emergency X Nidia SOLANO [facility] ERT [id number] [facility] 2022-05-05 22:33:00 2022-05-06 01:49:00 [facility] 1.2.840.114 350.1.13.10 4.2.7.2.686 [id number] [id number] [facility] 2022-05-01 07:33:00 2022-05-01 09:07:00 Emergency SAQIB MEDRANO [facility] ERT [id number] [facility] 2022-05-01 07:33:00 2022-05-01 09:07:00 Emergency Saqib Clarke [facility] 1.2.840.114 350.1.13.10 4.2.7.2.686 [id number] [id number] [facility] 2022-02-08 01:00:00 2022-02-08 03:03:00 Emergency X DEJONBENJAMIN [facility] ERT [id number] [facility] 2022-02-08 01:00:00 2022-02-08 03:03:00 Emergency Benjamin Ashford [facility] 1.2.840.114 350.1.13.10 4.2.7.2.686 [id number] [id number] [facility] 2021-10-14 16:40:00 2021-10-14 19:30:00 Emergency MARIE CHATTERJEE [facility] ERT [id number] [facility] 2021-10-14 16:40:00 2021-10-14 19:30:00 Emergency Marie Morales [facility] 1.2.840.114 350.1.13.10 4.2.7.2.686 [id number] [id number] [facility] 2021-05-15 12:11:58 2021-05-15 23:59:00 Hospital Encounter Geoff Cardona [facility] 1.2.840.114 350.1.13.10 4.2.7.2.686 [id number] [facility] 2021-05-15 12:30:00 2021-05-15 12:30:00 Outpatient R GEOFF CARDONA [facility] [id number] [facility] 2021-05-08 12:30:00 2021-05-08 23:59:00 Hospital Encounter Kiki Mathur [facility] 1.2.840.114 350.1.13.10 4.2.7.2.686 [id number] [facility] 2021-05-08 12:30:00 2021-05-08 12:30:00 Outpatient R KIKI MATHUR [facility] [id number] [facility] 2021-05-06 03:01:00 2021-05-06 04:28:00 Emergency ClarkeSaqib [facility] 1.2.840.114 350.1.13.10 4.2.7.2.686 [id number] [id number] [facility] 2021-05-06 03:01:00 2021-05-06 04:28:00 Emergency SAQIB MEDRANO [facility] ERT [id number] [facility] 2021-03-14 21:49:00 2021-03-15 01:22:00 Emergency Chapito Contreras [facility] 1.2.840.114 350.1.13.10 4.2.7.2.686 [id number] [id number] [facility] 2021-03-14 21:49:00 2021-03-15 01:22:00 Emergency Chapito Contreras [facility] 1.2.840.114 350.1.13.10 4.2.7.2.686 [id number] 2021-03-14 21:49:00 2021-03-14 21:49:00 Emergency CHAPITO VELASQUEZ [facility] ERT [id number] [facility] 2020-09-08 16:52:00 2020-09-08 18:13:00 Emergency Saqib Clarke [facility] 1.2.840.114 350.1.13.10 4.2.7.2.686 [id number] [id number] [facility] 2020-09-08 16:52:00 2020-09-08 18:13:00 Emergency Saqib Clarke [facility] 1.2.840.114 350.1.13.10 4.2.7.2.686 [id number] [id number] 2020-09-08 16:52:00 2020-09-08 16:52:00 Emergency SAQIB MEDRANO [facility] ERT [id number] [facility] 2020-09-06 09:52:00 2020-09-06 13:38:00 Emergency Nidia Solano [facility] 1.2.840.114 350.1.13.10 4.2.7.2.686 [id number] [id number] [facility] 2020-09-06 09:52:00 2020-09-06 13:38:00 Emergency Nidia Solano [facility] 1.2.840.114 350.1.13.10 4.2.7.2.686 [id number] 2020-09-06 09:52:00 2020-09-06 09:52:00 Emergency X [facility] ERT [id number] [facility] 2020-09-06 00:00:00 2020-09-06 00:00:00 Orders Only Doctor Unassigned, Hydro [facility] 1.2.840.114 350.1.13.10 4.2.7.2.686 [id number] [facility] 2020-09-06 00:00:00 2020-09-06 00:00:00 Orders Only Doctor Unassigned, Hydro [facility] 1.2.840.114 350.1.13.10 4.2.7.2.686 [id number] 2020-08-26 23:45:00 2020-08-30 08:05:00 Emergency Benjamin Ashford [facility] 1.2.840.114 350.1.13.10 4.2.7.2.686 [id number] [facility] 2020-08-26 23:45:00 2020-08-30 08:05:00 Emergency Benjamin Ashford [facility] 1.2.840.114 350.1.13.10 4.2.7.2.686 [id number] 2020-08-26 23:43:00 2020-08-26 23:43:00 Emergency X [facility] ERT [id number] [facility] 2020-07-09 19:41:00 2020-07-10 00:40:00 Emergency Chapito Contreras [facility] 1.2.840.114 350.1.13.10 4.2.7.2.686 [id number] [facility] 2020-07-09 19:41:00 2020-07-10 00:40:00 Emergency Chapito Contreras [facility] 1.2.840.114 350.1.13.10 4.2.7.2.686 [id number] 2020-07-09 19:41:00 2020-07-09 19:41:00 Emergency X CHAPITO CONTRERAS [facility] ERT [id number] [facility] Results Test Description Test Time [...] clinically for any signs and symptomsof cystitis. [facility] [id number] 17:02:35* Test Item Value Reference Range Interpretation Comme nts NA (test code = 8228343184) 139 mmol/L 135-145 K (test code = 3513554762) 4.4 mmol/L 3.5-5.0 CL (test code = 4165883536) 101 mmol/L 98-108 CO2 TOTAL (test code = 5490698900) 31 mmol/L 23-31 AGAP (test code = 2440652466) 7 2-16 BUN (test code = 0227284618) 12 mg/dL 7-23 GLUCOSE (test code = 4192207255) 100 mg/dL 70-110 CREATININE (test code = 2160-0) 0.61 mg/dL 0.60-1.25 TOTAL BILI (test code = 2755561970) 0.5 mg/dL 0.1-1.1 CALCIUM (test code = 2990214372) 9.8 mg/dL 8.6-10.6 T PROTEIN (test code = 8640632651) 8.4 g/dL 6.3-8.2 H ALBUMIN (test code = 8699433279) 4.7 g/dL 3.5-5.0 ALK PHOS (test code = 3758034369) 84 U/L 34-122 ALTv (test code = 1742-6) 23 U/L 5-50 AST(SGOT) (test code = 5120716325) 25 U/L 13-40 eGFR (test code = 68451-8) 120.0 mL/min/1.73m2 CKD-EPI eGFR (2020). Assuming creatinine has been stable day-to-day for at least three months, the eGFR indicates Category G1 (>= 90 mL/min/1.73 m2) Lab Interpretation (test code = 60378-9) [facility] [id number] 17:01:54* Test Item Value Reference Range Interpretation Comme nts LIPASE (test code = 5033763620) 42 U/L 0-220 Lab Interpretation (test cod e = 15401-1) Normal [facility] 07:16:16* Test Item Value Reference Range Interpretation Comme nts MAGNESIUM (test code = 5246525748) 2.2 mg/dL 1.7-2.4 Lab Interpretation (test cod e = 30062-4) Normal [facility] (24916)2023-11-06 07:16:15* Test Item Value Reference Range Interpretation Comme nts NA (test code = 2972557300) 138 mmol/L 135-145 K (test code = 5383712707) 3.5 mmol/L 3.5-5.0 CL (test code = 4283315829) 106 mmol/L 98-108 CO2 TOTAL (test code = 8398465885) 23 mmol/L 23-31 AGAP (test code = 5418182302) 9 2-16 BUN (test code = 8333138397) 18 mg/dL 7-23 GLUCOSE (test code = 4813338025) 110 mg/dL 70-110 CREATININE (test code = 9486648829) 0.73 mg/dL 0.60-1.25 TOTAL BILI (test code = 6065271449) 0.4 mg/dL 0.1-1.1 CALCIUM (test code = 4824561284) 9.4 mg/dL 8.6-10.6 T PROTEIN (test code = 4110710419) 8.5 g/dL 6.3-8.2 H ALBUMIN (test code = 8796363627) 4.8 g/dL 3.5-5.0 ALK PHOS (test code = 2551294853) 78 U/L 34-122 ALTv (test code = 1742-6) 42 U/L 5-50 AST(SGOT) (test code = 4870096090) 43 U/L 13-40 H eGFR (test code = 61360-7) 113.6 mL/min/1.73m2 CKD-EPI eGFR (2020). Assuming creatinine has been stable day-to-day for at least three months, the eGFR indicates Category G1 (>= 90 mL/min/1.73 m2) Lab Interpretation (test code = 67201-4) [facility]normal [facility] 07:16:15* Test Item Value Reference Range Interpretation Comme nts LIPASE (test code = 0799310219) 118 U/L 0-220 Lab Interpretation (test cod e = 96666-0) Normal [facility] with [id number] 06:49:12* Test Item Value Reference Range Interpretation Comme nts WBC (test code = 6690-2) 11.36 See_Comment H [Automated [employer]] The system which generated this result transmitted reference range: 4.20 - 10.70 10*3/?L. The reference range was not used to interpret this result as normal/abnormal. RBC (test code = 789-8) 5.20 See_Comment [Automated [employer]] The system which generated this result transmitted [...] 33.5 g/dL 31.2-35.0 RDW-SD (test code = 60499-9) 46.4 fL 38.5-51.6 RDW-CV (test code = 788-0) 13.7 % 12.1-15.4 PLT (test code = 777-3) 323 See_Comment [Automated [employer]] The system which generated this result transmitted reference range: 150 - 328 10*3/?L. The reference range was not used to interpret this result as normal/abnormal. MPV (test code = 64684-7) 9.8 fL 9.8-13.0 NRBC/100 WBC (test code = 8096325872) 0.0 See_Comment [Automated sc ssage] The system which generated this result transmitted reference range: 0.0 - 10.0 /100 WBCs. The reference range was not used to interpret this result as normal/abnormal. NRBC x10^3 (test code = 8517283088) See_Comment [Automated messa ge] The system which generated this result transmitted reference range: 10*3/?L. The reference range was not used to interpret this result as normal/abnormal. GRAN MAT (NEUT) % (test code = 770-8) 56.1 % IMM GRAN % (test code = 0257000509) 0.50 % LYMPH % (test code = 736-9) 34.8 % MONO % (test code = 5905-5) 6.3 % EOS % (test code = 713-8) 1.4 % BASO % (test code = 706-2) 0.9 % GRAN MAT x10^3(ANC) (test code = 5027343398) 6.38 10*3/uL 1.99-6.95 IMM GRAN x10^3 (test code = 9286993805) 0.06 10*3/uL 0.00-0.06 LYMPH x10^3 (test code = 731-0) 3.95 10*3/uL 1.09-3.23 H MONO x10^3 (test code = 742-7) 0.71 10*3/uL 0.36-1.02 EOS x10^3 (test code = 711-2) 0.16 10*3/uL 0.06-0.53 BASO x10^3 (test code = 704-7) 0.10 10*3/uL 0.01-0.09 H Lab Interpretation (test code = 40503-9) [facility]normal [facility] P[facility] W [id number] 09:00:37Ordering physician: JOSE FRANCISCO WALTERS Indication: Acute [...] demonstrate no osseous destructive lesion. [facility] Rkmpz6021-34-76 06:29:13* Test Item Value Reference Range Interpretation Comme nts NA (test code = 8671338960) 138 mmol/L 135-145 K (test code = 2662497854) 3.8 mmol/L 3.5-5.0 CL (test code = 1242191967) 106 mmol/L 98-108 CO2 TOTAL (test code = 7962285774) 21 mmol/L 23-31 L AGAP (test code = 6125557705) 11 2-16 BUN (test code = 0991587008) 13 mg/dL 7-23 GLUCOSE (test code = 6150087916) 113 mg/dL 70-110 H CREATININE (test code = 0852655401) 0.63 mg/dL 0.60-1.25 TOTAL BILI (test code = 6728105089) 0.7 mg/dL 0.1-1.1 CALCIUM (test code = 1962964179) 9.6 mg/dL 8.6-10.6 T PROTEIN (test code = 3570601096) 9.0 g/dL 6.3-8.2 H ALBUMIN (test code = 4218512683) 5.0 g/dL 3.5-5.0 ALK PHOS (test code = 9559469302) 73 U/L 34-122 ALTv (test code = 1742-6) 33 U/L 5-50 AST(SGOT) (test code = 5292592893) 33 U/L 13-40 eGFR (test code = 77759-0) 118.8 mL/min/1.73m2 CKD-EPI eGFR (2020). Assuming creatinine has been stable day-to-day for at least three months, the eGFR indicates Category G1 (>= 90 mL/min/1.73 m2) Lab Interpretation (test code = 70945-9) Abnormal [facility], Kfqhv1876-43-40 06:29:13* Test Item Value Reference Range Interpretation Comme nts LIPASE (test code = 5819957001) 89 U/L 0-220 Lab Interpretation (test cod e = 70909-7) Normal [facility] with Aqnxpkuoterm4189-17-91 06:17:56* Test Item Value Reference Range Interpretation Comme nts WBC (test code = 6690-2) 11.54 See_Comment H [Automated [employer]] The system which generated this result [...] 33.9 g/dL 31.2-35.0 RDW-SD (test code = 43883-2) 46.6 fL 38.5-51.6 RDW-CV (test code = 788-0) 14.0 % 12.1-15.4 PLT (test code = 777-3) 312 See_Comment [Automated [employer]] The system which generated this result transmitted reference range: 150 - 328 10*3/?L. The reference range was not used to interpret this result as normal/abnormal. MPV (test code = 64404-8) 9.7 fL 9.8-13.0 L NRBC/100 WBC (test code = 7688496671) 0.0 See_Comment [Automated me ssage] The system which generated this result transmitted reference range: 0.0 - 10.0 /100 WBCs. The reference range was not used to interpret this result as normal/abnormal. NRBC x10^3 (test code = 8178597500) See_Comment [Automated messa ge] The system which generated this result transmitted reference range: 10*3/?L. The reference range was not used to interpret this result as normal/abnormal. GRAN MAT (NEUT) % (test code = 770-8) 54.9 % IMM GRAN % (test code = 9397002651) 0.30 % LYMPH % (test code = 736-9) 36.0 % MONO % (test code = 5905-5) 6.3 % EOS % (test code = 713-8) 1.6 % BASO % (test code = 706-2) 0.9 % GRAN MAT x10^3(ANC) (test code = 3221647544) 6.35 10*3/uL 1.99-6.95 IMM GRAN x10^3 (test code = 0661041297) 0.03 10*3/uL 0.00-0.06 LYMPH x10^3 (test code = 731-0) 4.15 10*3/uL 1.09-3.23 H MONO x10^3 (test code = 742-7) 0.73 10*3/uL 0.36-1.02 EOS x10^3 (test code = 711-2) 0.18 10*3/uL 0.06-0.53 BASO x10^3 (test code = 704-7) 0.10 10*3/uL 0.01-0.09 H Lab Interpretation (test code = 70027-6) Abnormal [facility] GLUCOSE (AUTOMATED)2023-11-01 05:42:28* Test Item Value Reference Range Interpretation Comme nts POCT GLU (test code = 9507144683) 110 mg/dL 70-110 Lab Interpretation (test cod e = 50922-6) Normal [facility] ABDOMEN PELVIS W [id number] 07:44:05Ordering physician: CHAPITO CONTRERAS Indication: Acute right [...] lesion. 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 The reference range was not used to interpret this result as normal/abnormal. RBC (test code = 789-8) 5.23 See_Comment [[employer]] The system which generated this result transmitted [...] 33.9 g/dL 31.2-35.0 RDW-SD (test code = 59947-0) 45.0 fL 38.5-51.6 RDW-CV (test code = 788-0) 13.6 % 12.1-15.4 PLT (test code = 777-3) 307 See_Comment [Automated messa ge] The system which generated this result transmitted reference range: 150 - 328 10*3/?L. The reference range was not used to interpret this result as normal/abnormal. MPV (test code = 80364-1) 9.3 fL 9.8-13.0 L NRBC/100 WBC (test code = 0320077825) 0.0 See_Comment [Automated [facility] DEPT. ssage] The system which generated this result transmitted reference range: 0.0 - 10.0 /100 WBCs. The reference range was not used to interpret this result as normal/abnormal. NRBC x10^3 (test code = 0275956041) See_Comment [Automated messa ge] The system which generated this result transmitted reference range: 10*3/?L. The reference range was not used to interpret this result as normal/abnormal. SEG % (test code = 48989-9) 49 % 33-76 LYMPH % (test code = 25024-3) 40 % 14-54 MONO % (test code = 98288-4) 4 % 0-4 EOS % (test code = 06297-7) 7 % 0-3 H ANC (test code = 753-4) 5.81 10*3/uL 1.99-6.95 Lab Interpretation (test code = 77348-7) [facility] [id number] 06:32:13* Test Item Value Reference Range Interpretation Comme nts NA (test code = 4839451829) 140 mmol/L 135-145 K (test code = 0646597430) 3.7 mmol/L 3.5-5.0 CL (test code = 1199013671) 105 mmol/L 98-108 CO2 TOTAL (test code = 8981587462) 23 mmol/L 23-31 AGAP (test code = 9122013907) 12 2-16 BUN (test code = 5661003613) 15 mg/dL 7-23 GLUCOSE (test code = 9329878156) 126 mg/dL 70-110 H CREATININE (test code = 1888492959) 0.89 mg/dL 0.60-1.25 TOTAL BILI (test code = 8406970958) 0.6 mg/dL 0.1-1.1 CALCIUM (test code = 7247084047) 9.5 mg/dL 8.6-10.6 T PROTEIN (test code = 8981413370) 8.6 g/dL 6.3-8.2 H ALBUMIN (test code = 1000458339) 4.7 g/dL 3.5-5.0 ALK PHOS (test code = 2717336544) 84 U/L 34-122 ALTv (test code = 1742-6) 38 U/L 5-50 AST(SGOT) (test code = 4204804255) 33 U/L 13-40 eGFR (test code = 14466-6) 107.0 mL/min/1.73m2 CKD-EPI eGFR (2020). Assuming creatinine has been stable day-to-day for at least three months, the eGFR indicates Category G1 (>= 90 mL/min/1.73 m2) Lab Interpretation (test code = 54473-3) [facility]Lip[facility], [id number] 06:31:52* Test Item Value Reference Range Interpretation Comme nts LIPASE (test code = 4808828330) 80 U/L 0-220 Lab Interpretation (test cod e = 47184-8) [facility] (NA, K, CL, CO2, GLUCOSE, BUN, CREATININE, CA)2023-09-26 06:00:26* Test Item Value Reference Range Interpretation Comme nts NA (test code = 6018927070) 139 mmol/L 135-145 K (test code = 2979544519) 3.9 mmol/L 3.5-5.0 CL (test code = 1928718514) 104 mmol/L 98-108 CO2 TOTAL (test code = 7322817285) 25 mmol/L 23-31 AGAP (test code = 9498234038) 10 2-16 BUN (test code = 7521746263) 14 mg/dL 7-23 GLUCOSE (test code = 3242777734) 109 mg/dL 70-110 CREATININE (test code = 9795569282) 0.77 mg/dL 0.60-1.25 CALCIUM (test code = 0586171956) 10.4 mg/dL 8.6-10.6 eGFR (test code = 11660-4) 112.5 mL/min/1.73m2 CKD-EPI eGFR (20 21). Assuming creatinine has been stable day-to-day for at least three months, the eGFR indicates Category G1 (>= 90 mL/min/1.73 m2) [facility] (40866[facility] (ALB,T.PRO,BILI T,BU/BC,ALT,AST,ALK PHOS)2023-09-26 06:00:26* Test Item Value Reference Range Interpretation Comme nts TOTAL BILI (test code = 7005152695) 0.6 mg/dL 0.1-1.1 BILI UNCON (test code = 4821064970) 0.4 mg/dL 0.1-1.1 BILI CONJ (test code = 6582552113) 0.0 mg/dL 0.0-0.3 T PROTEIN (test code = 2970932394) 8.6 g/dL 6.3-8.2 H ALBUMIN (test code = 5639640025) 4.7 g/dL 3.5-5.0 ALK PHOS (test code = 7975538245) 91 U/L 34-122 ALTv (test code = 1742-6) 40 U/L 5-50 AST(SGOT) (test code = 0820997503) 27 U/L 13-40 Lab Interpretation (test cod e = 70707-1) [facility]normal [facility] 06:00:25* Test Item Value Reference Range Interpretation Comme nts LIPASE (test code = 0377590953) 73 U/L 0-220 Lab Interpretation (test cod e = 50881-8) Normal [facility] WITH [id number] 05:50:26* Test Item Value Reference Range Interpretation Comme nts WBC (test code = 6690-2) 10.08 See_Comment [Automated [employer] ge] The system which generated this result transmitted reference range: 4.20 - 10.70 10*3/?L. The reference range was not used to interpret this result as normal/abnormal. RBC (test code = 789-8) 5.24 See_Comment [Automated [employer] ge] The system which generated this result [...] 33.8 g/dL 31.2-35.0 RDW-SD (test code = 35672-1) 44.0 fL 38.5-51.6 RDW-CV (test code = 788-0) 13.1 % 12.1-15.4 PLT (test code = 777-3) 317 See_Comment [Automated messa ge] The system which generated this result transmitted reference range: 150 - 328 10*3/?L. The reference range was not used to interpret this result as normal/abnormal. MPV (test code = 17722-4) 9.6 fL 9.8-13.0 L NRBC/100 WBC (test code = 6481982442) 0.0 See_Comment [Automated [facility] DEPT. ssage] The system which generated this result transmitted reference range: 0.0 - 10.0 /100 WBCs. The reference range was not used to interpret this result as normal/abnormal. NRBC x10^3 (test code = 2967469037) See_Comment [Automated messa ge] The system which generated this result transmitted reference range: 10*3/?L. The reference range was not used to interpret this result as normal/abnormal. GRAN MAT (NEUT) % (test code = 770-8) 50.9 % IMM GRAN % (test code = 7125474597) 0.30 % LYMPH % (test code = 736-9) 38.3 % MONO % (test code = 5905-5) 7.5 % EOS % (test code = 713-8) 2.2 % BASO % (test code = 706-2) 0.8 % GRAN MAT x10^3(ANC) (test code = 5836916051) 5.13 10*3/uL 1.99-6.95 IMM GRAN x10^3 (test code = 2925877741) 0.03 10*3/uL 0.00-0.06 LYMPH x10^3 (test code = 731-0) 3.86 10*3/uL 1.09-3.23 H MONO x10^3 (test code = 742-7) 0.76 10*3/uL 0.36-1.02 EOS x10^3 (test code = 711-2) 0.22 10*3/uL 0.06-0.53 BASO x10^3 (test code = 704-7) 0.08 10*3/uL 0.01-0.09 Lab Interpretation (test code = 59285-3) [facility]normal [facility] [id number] 05:30:49* Test Item Value Reference Range Interpretation Comme nts TROPONIN I (test code = 7794777905) 0.001 ng/mL <=0.034 LAURIE (test code = [...] of biotin. Lab Interpretation (test code = 68971-9) Normal [facility]COMP. METABOLIC PANEL (02665)2023-08-24 05:19:05* Test Item Value Reference Range Interpretation Comme nts NA (test code = 9704225462) 138 mmol/L 135-145 K (test code = 5174782223) 4.3 mmol/L 3.5-5.0 CL (test code = 4060090215) 100 mmol/L 98-108 CO2 TOTAL (test code = 2178194345) 25 mmol/L 23-31 AGAP (test code = 6552707086) 13 2-16 BUN (test code = 3585679931) 15 mg/dL 7-23 GLUCOSE (test code = 5944900716) 198 mg/dL 70-110 H CREATININE (test code = 4992193762) 0.86 mg/dL 0.60-1.25 TOTAL BILI (test code = 8787509170) 0.3 mg/dL 0.1-1.1 CALCIUM (test code = 6814697143) 10.3 mg/dL 8.6-10.6 T PROTEIN (test code = 8077628934) 8.6 g/dL 6.3-8.2 H ALBUMIN (test code = 3592965737) 4.5 g/dL 3.5-5.0 ALK PHOS (test code = 6364809711) 94 U/L 34-122 ALTv (test code = 1742-6) 44 U/L 5-50 AST(SGOT) (test code = 3834244627) 28 U/L 13-40 eGFR (test code = 24405-0) 108.8 mL/min/1.73m2 CKD-EPI eGFR (2020). Assuming creatinine has been stable day-to-day for at least three months, the eGFR indicates Category G1 (>= 90 mL/min/1.73 m2) Lab Interpretation (test code = 35119-6) Abnormal [facility] WITH [id number] 05:01:26* Test Item Value Reference Range Interpretation Comme nts WBC (test code = 6690-2) 10.38 See_Comment [Automated [employer]] The system which generated this result transmitted reference range: 4.20 - 10.70 10*3/?L. The reference range was not used to interpret this result as normal/abnormal. RBC (test code = 789-8) 5.08 See_Comment [Automated [employer]] The system which generated this result transmitted [...] 33.5 g/dL 31.2-35.0 RDW-SD (test code = 88329-2) 43.8 fL 38.5-51.6 RDW-CV (test code = 788-0) 13.0 % 12.1-15.4 PLT (test code = 777-3) 298 See_Comment [Automated Keelvara ge] The system which generated this result transmitted reference range: 150 - 328 10*3/?L. The reference range was not used to interpret this result as normal/abnormal. MPV (test code = 57942-7) 10.0 fL 9.8-13.0 NRBC/100 WBC (test code = 9570157892) 0.0 See_Comment [Automated PS DEPT. ssage] The system which generated this result transmitted reference range: 0.0 - 10.0 /100 WBCs. The reference range was not used to interpret this result as normal/abnormal. NRBC x10^3 (test code = 3246956041) See_Comment [Automated Ke[employer]var[employer] ge] The system which generated this result transmitted reference range: 10*3/?L. The reference range was not used to interpret this result as normal/abnormal. GRAN MAT (NEUT) % (test code = 770-8) 52.4 % IMM GRAN % (test code = 7555166896) 0.30 % LYMPH % (test code = 736-9) 36.6 % MONO % (test code = 5905-5) 7.2 % EOS % (test code = 713-8) 2.6 % BASO % (test code = 706-2) 0.9 % GRAN MAT x10^3(ANC) (test code = 0928048226) 5.44 10*3/uL 1.99-6.95 IMM GRAN x10^3 (test code = 5795045310) 0.03 10*3/uL 0.00-0.06 LYMPH x10^3 (test code = 731-0) 3.80 10*3/uL 1.09-3.23 H MONO x10^3 (test code = 742-7) 0.75 10*3/uL 0.36-1.02 EOS x10^3 (test code = 711-2) 0.27 10*3/uL 0.06-0.53 BASO x10^3 (test code = 704-7) 0.09 10*3/uL 0.01-0.09 Lab Interpretation (test code = 72846-2) Abnormal [facility] GLUCOSE (AUTOMATED)2023-05-26 02:18:34* Test Item Value Reference Range Interpretation Comme nts POCT GLU (test code = 7122522526) 173 mg/dL 70-110 H Lab Interpretation (test cod e = 71547-5) Abnormal [facility] GLUCOSE(AGE >30DAYS)2023-05-26 02:17:00* Test Item Value Reference Range Interpretation Comme nts POCT Glu (age>30days) (test code = 3342) 173 mg/dL 70-110 A Lab Interpretation (test cod e = 41563-9) [facility]normal [facility] [id number] 01:41:57* Test Item Value Reference Range Interpretation Comme nts TROPONIN I (test code = 0247877624) 0.008 ng/mL <=0.034 LAURIE (test code = [...] of biotin. Lab Interpretation (test code = 95854-1) Normal [facility] GLUCOSE (AUTOMATED)2023-05-26 01:23:43* Test Item Value Reference Range Interpretation Comme nts POCT GLU (test code = 7207916977) 185 mg/dL 70-110 H Lab Interpretation (test cod e = 70840-8) [facility]normal [facility] [id number] 00:40:36* Test Item Value Reference Range Interpretation Comme nts NT-proBNP (test code = 18545-7) <=125 Lab Interpretation (test cod e = 90911-9) [facility] [id number] 00:06:55* Test Item Value Reference Range Interpretation Comme nts TROPONIN I (test code = 0182601145) 0.003 ng/mL <=0.034 LAURIE (test code = [...] of biotin. Lab Interpretation (test code = 42941-9) [facility]MAG[facility]2023-08-06 23:56:12* Test Item Value Reference Range Interpretation Comme nts MAGNESIUM (test code = 1171046537) 2.0 mg/dL 1.7-2.4 Lab Interpretation (test cod e = 36152-4) [facility]OLIC PANEL (73080)2023-05-25 23:55:52* Test Item Value Reference Range Interpretation Comme nts NA (test code = 8554098099) 138 mmol/L 135-145 K (test code = 4923226955) 4.3 mmol/L 3.5-5.0 CL (test code = 7305781278) 103 mmol/L 98-108 CO2 TOTAL (test code = 8686755108) 22 mmol/L 23-31 L AGAP (test code = 4259540891) 13 2-16 BUN (test code = 9365937488) 22 mg/dL 7-23 GLUCOSE (test code = 9161805281) 274 mg/dL 70-110 H CREATININE (test code = 8638472248) 0.79 mg/dL 0.60-1.25 TOTAL BILI (test code = 0415400783) 0.6 mg/dL 0.1-1.1 CALCIUM (test code = 6805279209) 9.2 mg/dL 8.6-10.6 T PROTEIN (test code = 3849876930) 8.4 g/dL 6.3-8.2 H ALBUMIN (test code = 9527539177) 4.5 g/dL 3.5-5.0 ALK PHOS (test code = 2286854831) 88 U/L 34-122 ALTv (test code = 1742-6) 48 U/L 5-50 AST(SGOT) (test code = 1373589993) 37 U/L 13-40 eGFR (test code = 9381429827) 106.1 mL/min/1.73m2 LAURIE (test code = LAURIE) [...] imaging tests). Lab Interpretation (test code = 89945-6) [facility]normal [facility] 23:55:32* Test Item Value Reference Range Interpretation Comme nts LIPASE (test code = 8060216475) 154 U/L 0-220 Lab Interpretation (test cod e = 19295-6) Normal [facility] WITH [id number] 23:33:34* Test Item Value Reference Range Interpretation Comme nts WBC (test code = 6690-2) 9.32 See_Comment [Automated messa ge] The system which generated this result transmitted reference range: 4.20 - 10.70 10*3/?L. The reference range was not used to interpret this result as normal/abnormal. RBC (test code = 789-8) 4.89 See_Comment [Automated messa ge] The system which [...] 33.7 g/dL 31.2-35.0 RDW-SD (test code = 22129-7) 45.4 fL 38.5-51.6 RDW-CV (test code = 788-0) 13.4 % 12.1-15.4 PLT (test code = 777-3) 286 See_Comment [Automated messa ge] The system which generated this result transmitted reference range: 150 - 328 10*3/?L. The reference range was not used to interpret this result as normal/abnormal. MPV (test code = 04438-2) 10.2 fL 9.8-13.0 NRBC/100 WBC (test code = 2749237596) 0.0 See_Comment [Automated me ssage] The system which generated this result transmitted reference range: 0.0 - 10.0 /100 WBCs. The reference range was not used to interpret this result as normal/abnormal. NRBC x10^3 (test code = 9820667819) See_Comment [Automated me ssage] The system which generated this result transmitted reference range: 10*3/?L. The reference range was not used to interpret this result as normal/abnormal. GRAN MAT (NEUT) % (test code = 770-8) 57.3 % IMM GRAN % (test code = 3283445107) 0.40 % LYMPH % (test code = 736-9) 32.6 % MONO % (test code = 5905-5) 6.8 % EOS % (test code = 713-8) 1.9 % BASO % (test code = 706-2) 1.0 % GRAN MAT x10^3(ANC) (test code = 5418584378) 5.34 10*3/uL 1.99-6.95 IMM GRAN x10^3 (test code = 6262775774) 0.04 10*3/uL 0.00-0.06 LYMPH x10^3 (test code = 731-0) 3.04 10*3/uL 1.09-3.23 MONO x10^3 (test code = 742-7) 0.63 10*3/uL 0.36-1.02 EOS x10^3 (test code = 711-2) 0.18 10*3/uL 0.06-0.53 BASO x10^3 (test code = 704-7) 0.09 10*3/uL 0.01-0.09 [facility] with Irkjlmspozmy8942-86-21 07:42:13* Test Item Value Reference Range Interpretation [...] 33.3 g/dL 31.2-35.0 RDW-SD (test code = 96581-7) 44.4 fL 38.5-51.6 RDW-CV (test code = 788-0) 13.6 % 12.1-15.4 PLT (test code = 777-3) 187 See_Comment [Automated messa ge] The system which generated this result transmitted reference range: 150 - 328 10*3/?L. The reference range was not used to interpret this result as normal/abnormal. MPV (test code = 53609-2) 10.4 fL 9.8-13.0 NRBC/100 WBC (test code = 1905040720) 0.0 See_Comment [Automated [facility] DEPT. ssage] The system which generated this result transmitted reference range: 0.0 - 10.0 /100 WBCs. The reference range was not used to interpret this result as normal/abnormal. NRBC x10^3 (test code = 9131659029) See_Comment [Automated messa ge] The system which generated this result transmitted reference range: 10*3/?L. The reference range was not used to interpret this result as normal/abnormal. GRAN MAT (NEUT) % (test code = 770-8) 55.0 % IMM GRAN % (test code = 6550942345) 0.50 % LYMPH % (test code = 736-9) 34.8 % MONO % (test code = 5905-5) 6.5 % EOS % (test code = 713-8) 2.5 % BASO % (test code = 706-2) 0.7 % GRAN MAT x10^3(ANC) (test code = 1626385947) 5.95 10*3/uL 1.99-6.95 IMM GRAN x10^3 (test code = 0478349737) 0.05 10*3/uL 0.00-0.06 LYMPH x10^3 (test code = 731-0) 3.77 10*3/uL 1.09-3.23 H MONO x10^3 (test code = 742-7) 0.70 10*3/uL 0.36-1.02 EOS x10^3 (test code = 711-2) 0.27 10*3/uL 0.06-0.53 BASO x10^3 (test code = 704-7) 0.08 10*3/uL 0.01-0.09 Lab Interpretation (test code = 66643-3) [facility] Met[facility] Cdeav9798-09-32 07:32:47* Test Item Value Reference Range Interpretation Comme nts NA (test code = 9074433502) 136 mmol/L 135-145 K (test code = 4927283543) 4.2 mmol/L 3.5-5.0 CL (test code = 2410516086) 104 mmol/L 98-108 CO2 TOTAL (test code = 8009777963) 21 mmol/L 23-31 L AGAP (test code = 2691898140) 11 2-16 BUN (test code = 3787160139) 17 mg/dL 7-23 GLUCOSE (test code = 5279003513) 125 mg/dL 70-110 H CREATININE (test code = 7584955840) 0.63 mg/dL 0.60-1.25 TOTAL BILI (test code = 8921146166) 0.3 mg/dL 0.1-1.1 CALCIUM (test code = 7931178130) 9.3 mg/dL 8.6-10.6 T PROTEIN (test code = 2715460272) 7.8 g/dL 6.3-8.2 ALBUMIN (test code = 1322321911) 4.5 g/dL 3.5-5.0 ALK PHOS (test code = 3912544527) 97 U/L 34-122 ALTv (test code = 1742-6) 42 U/L 5-50 AST(SGOT) (test code = 6493997912) 34 U/L 13-40 eGFR (test code = 4442072737) 137.7 mL/min/1.73m2 LAURIE (test code = LAURIE) [...] imaging tests). Lab Interpretation (test code = 40769-8) [facility]oundLip[facility], [id number] 07:31:52* Test Item Value Reference Range Interpretation Comme [facility] LIPASE (test code = 6478383370) 73 U/L 0-220 Lab Interpretation (test cod e = 23766-9) Normal [facility]oundTHYROID STIMULATING [id number] 18:17:21 * Test Item Value Reference Range Interpretation Comme nts TSH (test code = 0507134159) See_Comment H [Automated [employer]] The system which generated this result transmitted reference range: 0.45 - 4.70 mIU/L. The reference range was not used to interpret this result as normal/abnormal. Lab Interpretation (test code = 43267-5) [facility]normal [facility]FREE [id number] 16:53:41* Test Item Value Reference Range Interpretation Comme nts FREE T4 (test code = 3608096745) See_Comment L [Automated [employer]] The system which generated this result transmitted reference range: 0.78 - 2.20 ng/dL:. The reference range was not used to interpret this result as normal/abnormal. Lab Interpretation (test code = 92678-8) Abnormal [facility] [id number] 16:53:04* Test Item Value Reference Range Interpretation Comme nts FREE T3 (test code = 7915830825) 1.50 pg/mL 2.77-5.27 L Lab Interpretation (test cod e = 15955-6) Abnormal [facility]. METABOLIC PANEL (36607)2022-05-28 16:37:03* Test Item Value Reference Range Interpretation Comme nts NA (test code = 4331120527) 138 mmol/L 135-145 K (test code = 7930230292) 4.4 mmol/L 3.5-5 CL (test code = 7840374382) 101 mmol/L 98-108 CO2 TOTAL (test code = 0926055787) 27 mmol/L 23-31 AGAP (test code = 7635818203) 2-16 BUN (test code = 4985554334) 14 mg/dL 7-23 GLUCOSE (test code = 2274025068) 102 mg/dL 70-110 CREATININE (test code = 9349425601) 0.82 mg/dL 0.6-1.25 TOTAL BILI (test code = 0060110479) 0.5 mg/dL 0.1-1.1 CALCIUM (test code = 1421810853) 9.3 mg/dL 8.6-10.6 T PROTEIN (test code = 5748744509) 8.3 g/dL 6.3-8.2 H ALBUMIN (test code = 0086666527) 4.8 g/dL 3.5-5 ALK PHOS (test code = 7444319285) 75 U/L 34-122 ALTv (test code = 1742-6) 56 U/L 5-50 H AST(SGOT) (test code = 8591376706) 42 U/L 13-40 H eGFR (test code = 8463922649) mL/min/1.73m2 LAURIE (test code = LAURIE) Association [...] imaging tests). Lab Interpretation (test code = 46400-8) Abnormal [facility] WITH [id number] 16:25:38* Test Item Value Reference Range Interpretation Comme nts WBC (test code = 6690-2) See_Comment [[employer]] The system which generated this result transmitted reference range: 4.20 - 10.70 10*3/?L. The reference range was not used to interpret this result as normal/abnormal. RBC (test code = 789-8) See_Comment [[employer]] The system which generated this result transmitted [...] 33.0 g/dL 31.2-35 RDW-SD (test code = 26008-2) 48.1 fL 38.5-51.6 RDW-CV (test code = 788-0) 14.2 % 12.1-15.4 PLT (test code = 777-3) See_Comment [Automated messa ge] The system which generated this result transmitted reference range: 150 - 328 10*3/?L. The reference range was not used to interpret this result as normal/abnormal. MPV (test code = 82842-7) 9.5 fL 9.8-13 L NRBC/100 WBC (test code = 4593347211) See_Comment [Automated [facility] DEPT. ssage] The system which generated this result transmitted reference range: 0.0 - 10.0 /100 WBCs. The reference range was not used to interpret this result as normal/abnormal. NRBC x10^3 (test code = 7784704576) See_Comment [Automated messa ge] The system which generated this result transmitted reference range: 10*3/?L. The reference range was not used to interpret this result as normal/abnormal. GRAN MAT (NEUT) % (test code = 770-8) 56.3 % IMM GRAN % (test code = 0830142873) 0.70 % LYMPH % (test code = 736-9) 32.8 % MONO % (test code = 5905-5) 6.2 % EOS % (test code = 713-8) 2.7 % BASO % (test code = 706-2) 1.3 % GRAN MAT x10^3(ANC) (test code = 3040005102) 4.87 10*3/uL 1.99-6.95 IMM GRAN x10^3 (test code = 5804491382) 0.06 10*3/uL 0-0.06 LYMPH x10^3 (test code = 731-0) 2.84 10*3/uL 1.09-3.23 MONO x10^3 (test code = 742-7) 0.54 10*3/uL 0.36-1.02 EOS x10^3 (test code = 711-2) 0.23 10*3/uL 0.06-0.53 BASO x10^3 (test code = 704-7) 0.11 10*3/uL 0.01-0.09 H Lab Interpretation (test code = 05457-1) [facility] 06:03:53* Test Item Value Reference Range Interpretation Comme nts MAGNESIUM (test code = 4119716425) 1.8 mg/dL 1.7-2.4 Lab Interpretation (test cod e = 77164-2) [facility] [id number] 06:00:52* Test Item Value Reference Range Interpretation Comments TROPONIN I (test code = 5724046758) 0.002 ng/mL See_Comment [Automated message] The system [...] of biotin. Lab Interpretation (test code = 87032-1) [facility]COMP[facility]OLIC PANEL (97950)2022-05-06 05:49:11* Test Item Value Reference Range Interpretation Comme nts NA (test code = 7271542451) 136 mmol/L 135-145 K (test code = 6947070691) 4.4 mmol/L 3.5-5 CL (test code = 3851522023) 100 mmol/L 98-108 CO2 TOTAL (test code = 9575290363) 23 mmol/L 23-31 AGAP (test code = 3957854798) 2-16 BUN (test code = 3348780149) 16 mg/dL 7-23 GLUCOSE (test code = 7703925240) 116 mg/dL 70-110 H CREATININE (test code = 1294832016) 0.81 mg/dL 0.6-1.25 TOTAL BILI (test code = 5002784979) 0.6 mg/dL 0.1-1.1 CALCIUM (test code = 2128200821) 10.3 mg/dL 8.6-10.6 T PROTEIN (test code = 0264546449) 9.2 g/dL 6.3-8.2 H ALBUMIN (test code = 7166969244) 5.3 g/dL 3.5-5 H ALK PHOS (test code = 2977322151) 89 U/L 34-122 ALTv (test code = 1742-6) 44 U/L 5-50 AST(SGOT) (test code = 3312552548) 36 U/L 13-40 eGFR (test code = 1673850120) mL/min/1.73m2 LAURIE (test code = LAURIE) Association [...] imaging tests). Lab Interpretation (test code = 46403-3) [facility] 05:48:51* Test Item Value Reference Range Interpretation Comme nts LIPASE (test code = 7871270785) 67 U/L 0-220 Lab Interpretation (test cod e = 27612-4) [facility] [id number] 05:36:33* Test Item Value Reference Range Interpretation [...] 34.1 g/dL 31.2-35 RDW-SD (test code = 39501-7) 45.9 fL 38.5-51.6 RDW-CV (test code = 788-0) 13.9 % 12.1-15.4 PLT (test code = 777-3) See_Comment [Automated messa ge] The system which generated this result transmitted reference range: 150 - 328 10*3/?L. The reference range was not used to interpret this result as normal/abnormal. MPV (test code = 67256-3) 9.5 fL 9.8-13 L NRBC/100 WBC (test code = 2877535062) See_Comment [Automated [facility] DEPT. ssage] The system which generated this result transmitted reference range: 0.0 - 10.0 /100 WBCs. The reference range was not used to interpret this result as normal/abnormal. NRBC x10^3 (test code = 7768604040) See_Comment [Automated messa ge] The system which generated this result transmitted reference range: 10*3/?L. The reference range was not used to interpret this result as normal/abnormal. GRAN MAT (NEUT) % (test code = 770-8) 60.3 % IMM GRAN % (test code = 1663256763) 0.80 % LYMPH % (test code = 736-9) 27.6 % MONO % (test code = 5905-5) 6.8 % EOS % (test code = 713-8) 3.5 % BASO % (test code = 706-2) 1.0 % GRAN MAT x10^3(ANC) (test code = 4621930112) 6.95 10*3/uL 1.99-6.95 IMM GRAN x10^3 (test code = 2946126399) 0.09 10*3/uL 0-0.06 H LYMPH x10^3 (test code = 731-0) 3.19 10*3/uL 1.09-3.23 MONO x10^3 (test code = 742-7) 0.79 10*3/uL 0.36-1.02 EOS x10^3 (test code = 711-2) 0.40 10*3/uL 0.06-0.53 BASO x10^3 (test code = 704-7) 0.12 10*3/uL 0.01-0.09 H Lab Interpretation (test code = 39446-7) [facility] ([id number])2022-05-01 13:28:01* Test Item Value Reference Range Interpretation Comme nts NA (test code = 9522692081) 139 mmol/L 135-145 K (test code = 5285994959) 4.7 mmol/L 3.5-5 CL (test code = 2675830104) 104 mmol/L 98-108 CO2 TOTAL (test code = 0629944597) 23 mmol/L 23-31 AGAP (test code = 1465347588) 2-16 BUN (test code = 4355003695) 14 mg/dL 7-23 GLUCOSE (test code = 8449726281) 128 mg/dL 70-110 H CREATININE (test code = 9736390803) 0.62 mg/dL 0.6-1.25 TOTAL BILI (test code = 7857737369) 0.4 mg/dL 0.1-1.1 CALCIUM (test code = 7722958923) 9.2 mg/dL 8.6-10.6 T PROTEIN (test code = 0911310838) 8.1 g/dL 6.3-8.2 ALBUMIN (test code = 5201816167) 4.6 g/dL 3.5-5 ALK PHOS (test code = 5853179059) 92 U/L 34-122 ALTv (test code = 1742-6) 43 U/L 5-50 AST(SGOT) (test code = 3917924710) 30 U/L 13-40 eGFR (test code = 5001072544) mL/min/1.73m2 LAURIE (test code = LAURIE) Association [...] imaging tests). Lab Interpretation (test code = 39679-4) Abnormal [facility] WITH [id number] 13:20:02* Test Item Value Reference Range Interpretation [...] 32.8 g/dL 31.2-35 RDW-SD (test code = 51011-4) 47.5 fL 38.5-51.6 RDW-CV (test code = 788-0) 14.1 % 12.1-15.4 PLT (test code = 777-3) See_Comment [Automated messa ge] The system which generated this result transmitted reference range: 150 - 328 10*3/?L. The reference range was not used to interpret this result as normal/abnormal. MPV (test code = 86824-8) 9.3 fL 9.8-13 L NRBC/100 WBC (test code = 8449675785) See_Comment [Automated me ssage] The system which generated this result transmitted reference range: 0.0 - 10.0 /100 WBCs. The reference range was not used to interpret this result as normal/abnormal. NRBC x10^3 (test code = 2150284647) See_Comment [Automated messa ge] The system which generated this result transmitted reference range: 10*3/?L. The reference range was not used to interpret this result as normal/abnormal. GRAN MAT (NEUT) % (test code = 770-8) 58.9 % IMM GRAN % (test code = 0184637983) 0.60 % LYMPH % (test code = 736-9) 29.2 % MONO % (test code = 5905-5) 6.8 % EOS % (test code = 713-8) 3.5 % BASO % (test code = 706-2) 1.0 % GRAN MAT x10^3(ANC) (test code = 4494330333) 5.80 10*3/uL 1.99-6.95 IMM GRAN x10^3 (test code = 0751921498) 0.06 10*3/uL 0-0.06 LYMPH x10^3 (test code = 731-0) 2.87 10*3/uL 1.09-3.23 MONO x10^3 (test code = 742-7) 0.67 10*3/uL 0.36-1.02 EOS x10^3 (test code = 711-2) 0.34 10*3/uL 0.06-0.53 BASO x10^3 (test code = 704-7) 0.10 10*3/uL 0.01-0.09 H Lab Interpretation (test code = 84677-8) [facility]normal [facility]KK[facility] [id number] 07:04:38* Test Item Value Reference Range Interpretation Comments TROPONIN I (test code = 4860407213) 0.002 ng/mL See_Comment [Automated message] The system [...] of biotin. Lab Interpretation (test code = 83903-3) Normal [facility] [id number] 07:00:14* Test Item Value Reference Range Interpretation Comme nts NT-proBNP (test code = 8422115043) 25 pg/mL See_Comment [Automated message] The system which generated this result transmitted reference range: <=125. The reference range was not used to interpret this result as normal/abnormal. LAURIE (test code = LAURIE) Biotin has been reported to cause a negative bias, interpret results relative to patient's use of biotin. Lab Interpretation (test code = 31228-3) Normal [facility]2022-[facility] 06:53:02* Test Item Value Reference Range Interpretation Comme nts ALCOHOL (test code = 5197741977) <10 mg/dL LAURIE (test code = LAURIE) <10 Isembgfp24-090 Toxic>100 Depression of COMPUTER INFORMATION SCIENCE PROFESSOR>400 Fatalities Reported [facility]22-[facility] 06:50:57* Test Item Value Reference Range Interpretation Comme nts LIPASE (test code = 7515779392) 65 U/L 0-220 Lab Interpretation (test cod e = 30920-4) Normal [facility]OL[facility] PANEL (75166)2022-02-08 06:50:57* Test Item Value Reference Range Interpretation Comme nts NA (test code = 3359122195) 138 mmol/L 135-145 K (test code = 8890545684) 4.3 mmol/L 3.5-5.0 CL (test code = 4339871962) 103 mmol/L 98-108 CO2 TOTAL (test code = 9154998704) 23 mmol/L 23-31 AGAP (test code = 0228236022) 2-16 BUN (test code = 5422280857) 14 mg/dL 7-23 GLUCOSE (test code = 7055556463) 142 mg/dL 70-110 H CREATININE (test code = 1630791979) 0.60 mg/dL 0.60-1.25 TOTAL BILI (test code = 7025598933) 0.5 mg/dL 0.1-1.1 CALCIUM (test code = 5754090295) 9.1 mg/dL 8.6-10.6 T PROTEIN (test code = 1247798166) 7.9 g/dL 6.3-8.2 ALBUMIN (test code = 2100948823) 4.5 g/dL 3.5-5.0 ALK PHOS (test code = 7717351897) 81 U/L 34-122 ALTv (test code = 1742-6) 28 U/L 5-50 AST(SGOT) (test code = 5102350233) 24 U/L 13-40 eGFR (test code = 8573208702) mL/min/1.73m2 LAURIE (test code = LAURIE) Association [...] imaging tests). Lab Interpretation (test code = 07230-1) Abnormal [facility]ACTIV[facility] PART[facility] THRMPLAS [id number] 06:47:31* Test Item Value Reference Range Interpretation Comme nts APTT Patient (test code = 3173-2) See_Comment [Automated message] The system which generated this result transmitted reference range: 23 - 38 Seconds. The reference range was not used to interpret this result as normal/abnormal. LAURIE (test code = LAURIE) The [facility] patient population mean normal value for aPTT is 30 seconds. Lab Interpretation (test code = 37176-4) Normal [facility]oundPROTHROMBIN TIME / [id number] 06:45:33* Test Item Value Reference Range Interpretation Comme nts PROTIME PATIENT (test code = 5964-2) See_Comment [Automated [employer]] The system which generated this result transmitted reference range: 12.0 - 14.7 Seconds. The reference range was not used to interpret this result as normal/abnormal. INR (test code = 6301-6) Normal INR <1.1; Warfarin Therapeutic range 2.0 to 3.0 or 2.5 to 3.5, depending upon the indications. Lab Interpretation (test code = 62178-3) Normal [facility]CBC WITH [id number] 06:37:36* Test Item Value Reference Range Interpretation Comme [facility] WBC (test code = 6690-2) See_Comment [Automated [employer]] The system which generated this result transmitted reference range: 4.20 - 10.70 10*3/?L. The reference range was not used to interpret this result as normal/abnormal. RBC (test code = 789-8) See_Comment [Automated [employer]] The system which generated this result transmitted [...] 33.4 g/dL 31.2-35.0 RDW-SD (test code = 82413-7) 42.7 fL 38.5-51.6 RDW-CV (test code = 788-0) 13.1 % 12.1-15.4 PLT (test code = 777-3) See_Comment [Automated messa ge] The system which generated this result transmitted reference range: 150 - 328 10*3/?L. The reference range was not used to interpret this result as normal/abnormal. MPV (test code = 64870-3) 9.7 fL 9.8-13.0 L NRBC/100 WBC (test code = 3170454077) See_Comment [Automated [facility] DEPT. ssage] The system which generated this result transmitted reference range: 0.0 - 10.0 /100 WBCs. The reference range was not used to interpret this result as normal/abnormal. NRBC x10^3 (test code = 5693649416) <0.01 See_Comment [Automated messa ge] The system which generated this result transmitted reference range: 10*3/?L. The reference range was not used to interpret this result as normal/abnormal. GRAN MAT (NEUT) % (test code = 770-8) 54.9 % IMM GRAN % (test code = 9838195410) 0.70 % LYMPH % (test code = 736-9) 32.9 % MONO % (test code = 5905-5) 8.7 % EOS % (test code = 713-8) 2.0 % BASO % (test code = 706-2) 0.8 % GRAN MAT x10^3(ANC) (test code = 7229964581) 5.84 10*3/uL 1.99-6.95 IMM GRAN x10^3 (test code = 7997286202) 0.07 10*3/uL 0.00-0.06 H LYMPH x10^3 (test code = 731-0) 3.50 10*3/uL 1.09-3.23 H MONO x10^3 (test code = 742-7) 0.92 10*3/uL 0.36-1.02 EOS x10^3 (test code = 711-2) 0.21 10*3/uL 0.06-0.53 BASO x10^3 (test code = 704-7) 0.09 10*3/uL 0.01-0.09 Lab Interpretation (test code = 19073-2) [facility]normal [facility]oundUSMAN [id number] 01:09:15* Test Item Value Reference Range Interpretation Comments TROPONIN I (test code = 4998665421) 0.003 ng/mL See_Comment [Automated message] The system [...] of biotin. Lab Interpretation (test code = 18049-5) Normal [facility]. METABOLIC PANEL (38227)2021-10-15 00:56:56* Test Item Value Reference Range Interpretation Comme nts NA (test code = 2749238569) 135 mmol/L 135-145 K (test code = 3301192737) 4.6 mmol/L 3.5-5.0 CL (test code = 4521038153) 101 mmol/L 98-108 CO2 TOTAL (test code = 5546524573) 25 mmol/L 23-31 AGAP (test code = 9634459086) 2-16 BUN (test code = 8967862573) 20 mg/dL 7-23 GLUCOSE (test code = 8462234643) 130 mg/dL 70-110 H CREATININE (test code = 4837824455) 0.92 mg/dL 0.60-1.25 TOTAL BILI (test code = 0953471667) 0.4 mg/dL 0.1-1.1 CALCIUM (test code = 4304690387) 10.0 mg/dL 8.6-10.6 T PROTEIN (test code = 5285616462) 8.5 g/dL 6.3-8.2 H ALBUMIN (test code = 1595679341) 4.8 g/dL 3.5-5.0 ALK PHOS (test code = 0495377042) 89 U/L 34-122 ALTv (test code = 1742-6) 59 U/L 5-50 H AST(SGOT) (test code = 4954654109) 38 U/L 13-40 eGFR (test code = 3710597078) mL/min/1.73m2 LAURIE (test code = LAURIE) Association [...] imaging tests). Lab Interpretation (test code = 85388-8) [facility]normal [facility]IPASE2021-[facility] 00:56:36* Test Item Value Reference Range Interpretation Comme nts LIPASE (test code = 7830031989) 77 U/L 0-220 Lab Interpretation (test cod e = 96489-0) [facility] WITH [id number] 00:37:36* Test Item Value Reference Range Interpretation Comme nts WBC (test code = 6690-2) See_Comment [Automated [employer]var[employer] ge] The system which generated this result transmitted reference range: 4.20 - 10.70 10*3/?L. The reference range was not used to interpret this result as normal/abnormal. RBC (test code = 789-8) See_Comment [Automated [employer]var[employer] ge] The system which generated this result [...] 33.6 g/dL 31.2-35.0 RDW-SD (test code = 66284-1) 44.2 fL 38.5-51.6 RDW-CV (test code = 788-0) 13.3 % 12.1-15.4 PLT (test code = 777-3) See_Comment [Automated Keelvar[employer] ge] The system which generated this result transmitted reference range: 150 - 328 10*3/?L. The reference range was not used to interpret this result as normal/abnormal. MPV (test code = 99982-2) 9.5 fL 9.8-13.0 L NRBC/100 WBC (test code = 4620027103) See_Comment [Automated [facility] DEPT. ssage] The system which generated this result transmitted reference range: 0.0 - 10.0 /100 WBCs. The reference range was not used to interpret this result as normal/abnormal. NRBC x10^3 (test code = 3804563423) <0.01 See_Comment [Automated Keelvar[employer] ge] The system which generated this result transmitted reference range: 10*3/?L. The reference range was not used to interpret this result as normal/abnormal. GRAN MAT (NEUT) % (test code = 770-8) 55.3 % IMM GRAN % (test code = 2627187265) 0.60 % LYMPH % (test code = 736-9) 32.5 % MONO % (test code = 5905-5) 7.8 % EOS % (test code = 713-8) 2.7 % BASO % (test code = 706-2) 1.1 % GRAN MAT x10^3(ANC) (test code = 8192709762) 5.74 10*3/uL 1.99-6.95 IMM GRAN x10^3 (test code = 9202314824) 0.06 10*3/uL 0.00-0.06 LYMPH x10^3 (test code = 731-0) 3.37 10*3/uL 1.09-3.23 H MONO x10^3 (test code = 742-7) 0.81 10*3/uL 0.36-1.02 EOS x10^3 (test code = 711-2) 0.28 10*3/uL 0.06-0.53 BASO x10^3 (test code = 704-7) 0.11 10*3/uL 0.01-0.09 H Lab Interpretation (test code = 00360-5) [facility]ID NOW RAPID TESTING)2021-03-15 04:10:11* Test Item Value Reference Range Interpretation Comme nts SARS-CoV-2 Rapid ID NOW (test code = 06381-2) Not Detected Not Detected LAURIE (test code = LAURIE) ID NOW COVID-19 As say is an isothermal nucleic acid amplification test intended for the qualitative detection of nucleic acid from SARS-CoV-2 viral RNA in nasopharyngeal (ORDERLY) specimens. It is used under Emergency Use [...] clinically indicated. Lab Interpretation (test code = 13962-6) Normal [facility] METABOLIC PANEL (51294)2021-03-15 03:35:30* Test Item Value Reference Range Interpretation Comme nts NA (test code = 9811296068) 139 mmol/L 135-145 K (test code = 8917443074) 3.2 mmol/L 3.5-5.0 L CL (test code = 4070172006) 109 mmol/L 98-108 H CO2 TOTAL (test code = 7843516776) 23 mmol/L 23-31 AGAP (test code = 6357889667) 2-16 BUN (test code = 5848875013) 19 mg/dL 7-23 GLUCOSE (test code = 9895398723) 150 mg/dL 70-110 H CREATININE (test code = 9369747297) 0.81 mg/dL 0.60-1.25 TOTAL BILI (test code = 1390881762) 0.3 mg/dL 0.1-1.1 CALCIUM (test code = 2070352252) 8.2 mg/dL 8.6-10.6 L T PROTEIN (test code = 5057904409) 6.9 g/dL 6.3-8.2 ALBUMIN (test code = 6720932234) 4.0 g/dL 3.5-5.0 ALK PHOS (test code = 3613507417) 77 U/L 34-122 ALTv (test code = 1742-6) 22 U/L 5-50 AST(SGOT) (test code = 1243965435) 26 U/L 13-40 eGFR (test code = 2837698632) mL/min/1.73m2 LAURIE (test code = LAURIE) Association [...] imaging tests). Lab Interpretation (test code = 14987-7) [facility]normal [facility]INALYSIS2021-[facility]-27 03:35:00* Test Item Value Reference Range Interpretation Comme nts APPEARANCE (test code = 9869091946) Clear Clear COLOR (test code = 4356368399) Yellow Yellow PH (test code = 6273416000) 4.8-8.0 SP GRAVITY (test code = 4747343179) 1.003-1.030 GLU U QUAL (test code = 6799857353) Normal Normal BLOOD (test code = 1430133103) Negative Negative KETONES (test code = 4474346531) 5 mg/dL Negative A PROTEIN (test code = 2887-8) Negative Negative UROBILIN (test code = 9016131689) Normal Normal BILIRUBIN (test code = 2553719926) Negative Negative NITRITE (test code = 5150123540) Negative Negative LEUK KENNY (test code = 0887038266) Negative Negative RBC/HPF (test code = 1574860563) <1 See_Comment [Automated [employer]] The system which generated this result transmitted reference range: 0 - 3 HPF. The reference range was not used to interpret this result as normal/abnormal. WBC/HPF (test code = 6813877557) <1 See_Comment [Automated [employer]] The system which generated this result transmitted reference range: 0 - 5 HPF. The reference range was not used to interpret this result as normal/abnormal. BACTERIA (test code = 5822839436) Negative Negative MUCOUS (test code = 2538536514) Slight Negative LPF A SQ EPITH (test code = 2480909502) <1 HPF Lab Interpretation (test code = 13027-1) Abnormal [facility] WITH [id number] 03:22:25* Test Item Value Reference Range Interpretation [...] 33.3 g/dL 31.2-35.0 RDW-SD (test code = 31824-2) 45.8 fL 38.5-51.6 RDW-CV (test code = 788-0) 13.7 % 12.1-15.4 PLT (test code = 777-3) See_Comment H [Automated messa ge] The system which generated this result transmitted reference range: 150 - 328 10*3/?L. The reference range was not used to interpret this result as normal/abnormal. MPV (test code = 84969-1) 9.4 fL 9.8-13.0 L NRBC/100 WBC (test code = 9256196560) See_Comment [Automated me ssage] The system which generated this result transmitted reference range: 0.0 - 10.0 /100 WBCs. The reference range was not used to interpret this result as normal/abnormal. NRBC x10^3 (test code = 2432699394) <0.01 See_Comment [Automated messa ge] The system which generated this result transmitted reference range: 10*3/?L. The reference range was not used to interpret this result as normal/abnormal. GRAN MAT (NEUT) % (test code = 770-8) 58.4 % IMM GRAN % (test code = 4256560277) 0.50 % LYMPH % (test code = 736-9) 30.5 % MONO % (test code = 5905-5) 7.5 % EOS % (test code = 713-8) 2.2 % BASO % (test code = 706-2) 0.9 % GRAN MAT x10^3(ANC) (test code = 5602826005) 5.75 10*3/uL 1.99-6.95 IMM GRAN x10^3 (test code = 5665671488) 0.05 10*3/uL 0.00-0.06 LYMPH x10^3 (test code = 731-0) 3.00 10*3/uL 1.09-3.23 MONO x10^3 (test code = 742-7) 0.74 10*3/uL 0.36-1.02 EOS x10^3 (test code = 711-2) 0.22 10*3/uL 0.06-0.53 BASO x10^3 (test code = 704-7) 0.09 10*3/uL 0.01-0.09 Lab Interpretation (test code = 78511-5) [facility]39[facility] 23:50:00* Test Item Value Reference Range Interpretation Comme nts NA (test code = 5073881928) 139 mmol/L 135-145 K (test code = 6144843244) 4.1 mmol/L 3.5-5 CL (test code = 2128631204) 107 mmol/L 98-108 CO2 TOTAL (test code = 0289526420) 22 mmol/L 23-31 L AGAP (test code = 0666506959) 2-16 BUN (test code = 2533402840) 12 mg/dL 7-23 GLUCOSE (test code = 7940620611) 115 mg/dL 70-110 H CREATININE (test code = 7005729918) 0.54 mg/dL 0.6-1.25 L TOTAL BILI (test code = 7573107655) 0.3 mg/dL 0.1-1.1 CALCIUM (test code = 4344341025) 9.3 mg/dL 8.6-10.6 T PROTEIN (test code = 2897426260) 7.6 g/dL 6.3-8.2 ALBUMIN (test code = 2055918585) 4.3 g/dL 3.5-5 ALK PHOS (test code = 1791116128) 80 U/L 34-122 ALTv (test code = 1742-6) 21 U/L 5-50 AST(SGOT) (test code = 0900436316) 21 U/L 13-40 eGFR Calculation (Non-) (test code = 6626124121) mL/min/1.73m2 eGFR Calculation () (test code = 3904859019) mL/min/1.73m2 LAURIE (test code = LAURIE) Association [...] imaging tests). Lab Interpretation (test code = 09448-7) [facility]2020[facility] 23:50:00* Test Item Value Reference Range Interpretation Comme nts LIPASE (test code = 5047223061) 68 U/L 0-220 Lab Interpretation (test cod e = 93760-3) [facility] WITH [id number] 23:22:00* Test Item Value Reference Range Interpretation [...] 34.1 g/dL 31.2-35 RDW-SD (test code = 08135-2) 40.8 fL 38.5-51.6 RDW-CV (test code = 788-0) 12.5 % 12.1-15.4 PLT (test code = 777-3) See_Comment [Automated messa ge] The system which generated this result transmitted reference range: 150 - 328 10*3/?L. The reference range was not used to interpret this result as normal/abnormal. MPV (test code = 47808-8) 9.1 fL 9.8-13 L NRBC/100 WBC (test code = 8091648330) See_Comment [Automated [facility] DEPT. ssage] The system which generated this result transmitted reference range: 0.0 - 10.0 /100 WBCs. The reference range was not used to interpret this result as normal/abnormal. NRBC x10^3 (test code = 5990216213) <0.01 See_Comment [Automated [employer] ge] The system which generated this result transmitted reference range: 10*3/?L. The reference range was not used to interpret this result as normal/abnormal. GRAN MAT (NEUT) % (test code = 770-8) 59.0 % IMM GRAN % (test code = 3659543652) 0.60 % LYMPH % (test code = 736-9) 31.3 % MONO % (test code = 5905-5) 6.6 % EOS % (test code = 713-8) 1.9 % BASO % (test code = 706-2) 0.6 % GRAN MAT x10^3(ANC) (test code = 1724275496) 5.85 10*3/uL 1.99-6.95 IMM GRAN x10^3 (test code = 7313441195) 0.06 10*3/uL 0-0.06 LYMPH x10^3 (test code = 731-0) 3.10 10*3/uL 1.09-3.23 MONO x10^3 (test code = 742-7) 0.65 10*3/uL 0.36-1.02 EOS x10^3 (test code = 711-2) 0.19 10*3/uL 0.06-0.53 BASO x10^3 (test code = 704-7) 0.06 10*3/uL 0.01-0.09 Lab Interpretation (test code = 79740-2) [facility] W [id number] 17:21:17CT Abdomen and Pelvis with intravenous contrast. [...] fluid inthe abdomen or in the pelvis.2. Hepatomegaly.[facility]. METABOLIC PANEL (46147)2020-09-06 16:39:00* Test Item Value Reference Range Interpretation Comme nts NA (test code = 3665539577) 138 mmol/L 135-145 K (test code = 4875935664) 4.2 mmol/L 3.5-5 CL (test code = 1846545632) 103 mmol/L 98-108 CO2 TOTAL (test code = 6279106503) 25 mmol/L 23-31 AGAP (test code = 4762790910) 2-16 BUN (test code = 7448524131) 17 mg/dL 7-23 GLUCOSE (test code = 3924396300) 124 mg/dL 70-110 H CREATININE (test code = 5432906750) 0.95 mg/dL 0.6-1.25 TOTAL BILI (test code = 3427185066) 0.4 mg/dL 0.1-1.1 CALCIUM (test code = 4221002809) 9.7 mg/dL 8.6-10.6 T PROTEIN (test code = 2058142740) 7.9 g/dL 6.3-8.2 ALBUMIN (test code = 6624705156) 4.5 g/dL 3.5-5 ALK PHOS (test code = 6674080167) 75 U/L 34-122 ALTv (test code = 1742-6) 28 U/L 5-50 AST(SGOT) (test code = 9131080782) 23 U/L 13-40 eGFR Calculation (Non-) (test code = 6972098444) mL/min/1.73m2 eGFR Calculation () (test code = 9137795959) mL/min/1.73m2 LAURIE (test code = LAURIE) Association [...] imaging tests). Lab Interpretation (test code = 96748-2) [facility]2020[facility] 16:39:00* Test Item Value Reference Range Interpretation Comme nts LIPASE (test code = 6799688786) 70 U/L 0-220 Lab Interpretation (test cod e = 36378-1) Normal [facility]2020-11-18 16:39:00* Test Item Value Reference Range Interpretation Comme nts MAGNESIUM (test code = 7865342162) 1.9 mg/dL 1.7-2.4 Lab Interpretation (test cod e = 24484-6) Normal [facility]oundLactic Acid Whole [id number] 16:38:00* Test Item Value Reference Range Interpretation Comme nts LACTIC ACID (test code = 3959386530) 1.51 mmol/L [facility] WITH [id number] 16:20:00* Test Item Value Reference Range Interpretation Comme nts WBC (test code = 6690-2) See_Comment [Automated [employer]] The system which generated this result transmitted reference range: 4.20 - 10.70 10*3/?L. The reference range was not used to interpret this result as normal/abnormal. RBC (test code = 789-8) See_Comment [Automated [employer]] The system which generated this result [...] 32.8 g/dL 31.2-35 RDW-SD (test code = 93663-1) 42.2 fL 38.5-51.6 RDW-CV (test code = 788-0) 12.6 % 12.1-15.4 PLT (test code = 777-3) See_Comment [Automated [employer]elvar[employer] ge] The system which generated this result transmitted reference range: 150 - 328 10*3/?L. The reference range was not used to interpret this result as normal/abnormal. MPV (test code = 34292-2) 9.3 fL 9.8-13 L NRBC/100 WBC (test code = 7143551708) See_Comment [Automated me ssage] The system which generated this result transmitted reference range: 0.0 - 10.0 /100 WBCs. The reference range was not used to interpret this result as normal/abnormal. NRBC x10^3 (test code = 8881713852) <0.01 See_Comment [Automated messa ge] The system which generated this result transmitted reference range: 10*3/?L. The reference range was not used to interpret this result as normal/abnormal. GRAN MAT (NEUT) % (test code = 770-8) 64.9 % IMM GRAN % (test code = 4654652349) 0.50 % LYMPH % (test code = 736-9) 25.0 % MONO % (test code = 5905-5) 7.5 % EOS % (test code = 713-8) 1.3 % BASO % (test code = 706-2) 0.8 % GRAN MAT x10^3(ANC) (test code = 4936040436) 5.99 10*3/uL 1.99-6.95 IMM GRAN x10^3 (test code = 2897233723) 0.05 10*3/uL 0-0.06 LYMPH x10^3 (test code = 731-0) 2.31 10*3/uL 1.09-3.23 MONO x10^3 (test code = 742-7) 0.69 10*3/uL 0.36-1.02 EOS x10^3 (test code = 711-2) 0.12 10*3/uL 0.06-0.53 BASO x10^3 (test code = 704-7) 0.07 10*3/uL 0.01-0.09 Lab Interpretation (test code = 36321-9) [facility] (20741[facility]2020-08-30 10:29:00* Test Item Value Reference Range Interpretation Comme nts NA (test code = 2990715757) 139 mmol/L 135-145 K (test code = 3396215770) 4.7 mmol/L 3.5-5 CL (test code = 6194727817) 105 mmol/L 98-108 CO2 TOTAL (test code = 9827038418) 24 mmol/L 23-31 AGAP (test code = 2217552135) 2-16 BUN (test code = 2012162750) 21 mg/dL 7-23 GLUCOSE (test code = 1335463238) 109 mg/dL 70-110 CREATININE (test code = 5612232268) 0.99 mg/dL 0.6-1.25 TOTAL BILI (test code = 0267241637) 0.4 mg/dL 0.1-1.1 CALCIUM (test code = 5454424921) 9.4 mg/dL 8.6-10.6 T PROTEIN (test code = 4989888925) 7.4 g/dL 6.3-8.2 ALBUMIN (test code = 6858485489) 4.2 g/dL 3.5-5 ALK PHOS (test code = 8187796491) 68 U/L 34-122 ALTv (test code = 1742-6) 33 U/L 5-50 AST(SGOT) (test code = 1885148287) 28 U/L 13-40 eGFR Calculation (Non-) (test code = 9770826447) mL/min/1.73m2 eGFR Calculation () (test code = 7348265470) mL/min/1.73m2 LAURIE (test code = LAURIE) Association [...] or urine or abnormalities in imaging tests). [facility] WITH [id number] 09:50:00* Test Item Value Reference Range Interpretation [...] 32.4 g/dL 31.2-35 RDW-SD (test code = 78699-3) 43.6 fL 38.5-51.6 RDW-CV (test code = 788-0) 13.0 % 12.1-15.4 PLT (test code = 777-3) See_Comment [Automated message] The system which generated this result transmitted reference range: 150 - 328 10*3/?L. The reference range was not used to interpret this result as normal/abnormal. MPV (test code = 04263-4) 10.0 fL 9.8-13 NRBC/100 WBC (test code = 2032269071) See_Comment [Automated message] The system which generated this result transmitted reference range: 0.0 - 10.0 /100 WBCs. The reference range was not used to interpret this result as normal/abnormal. NRBC x10^3 (test code = 5940938422) <0.01 See_Comment [Automated message] The system which generated this result transmitted reference range: 10*3/?L. The reference range was not used to interpret this result as normal/abnormal. GRAN MAT (NEUT) % (test code = 770-8) 80.1 % IMM GRAN % (test code = 9649300036) 0.50 % LYMPH % (test code = 736-9) 12.5 % MONO % (test code = 5905-5) 6.5 % EOS % (test code = 713-8) 0.1 % BASO % (test code = 706-2) 0.3 % GRAN MAT x10^3(ANC) (test code = 9001639489) 12.09 10*3/uL 1.99-6.95 H IMM GRAN x10^3 (test code = 3708294818) 0.08 10*3/uL 0-0.06 H LYMPH x10^3 (test code = 731-0) 1.89 10*3/uL 1.09-3.23 MONO x10^3 (test code = 742-7) 0.98 10*3/uL 0.36-1.02 EOS x10^3 (test code = 711-2) <0.03 0.06-0.53 L BASO x10^3 (test code = 704-7) 0.04 10*3/uL 0.01-0.09 Lab Interpretation (test code = 32283-2) [facility] (ALB,T.PRO,BILI T,BU/BC,ALT,AST,ALK PHOS)2020-08-28 21:15:00* Test Item Value Reference Range Interpretation Comme nts TOTAL BILI (test code = 6575996596) 0.6 mg/dL 0.1-1.1 BILI UNCON (test code = 2533138845) 0.4 mg/dL 0.1-1.1 BILI CONJ (test code = 5181540136) 0.0 mg/dL 0-0.3 T PROTEIN (test code = 2418636676) 7.2 g/dL 6.3-8.2 ALBUMIN (test code = 4234332917) 3.9 g/dL 3.5-5 ALK PHOS (test code = 9460342888) 65 U/L 34-122 ALTv (test code = 1742-6) 20 U/L 5-50 AST(SGOT) (test code = 1361856298) 25 U/L 13-40 Lab Interpretation (test cod e = 42162-1) Normal [facility] ABDOMEN [id number] 18:22:30 Hepatomegaly with moderate hepatic steatosis. Cholelithiasis [...] could be related to stone. [facility] CHE[facility] 1 [id number] 14:32:06No acute cardiopulmonary abnormality. Preliminary Report Dictated [...] this study andagree with theabove report.[facility]ound[facility]asi Metabolic Panel (NA, K, CL, CO2, GLUCOSE, BUN, CREATININE, CA) 2020-08-28 11:39:00* Test Item Value Reference Range Interpretation Comme nts NA (test code = 9217304419) 137 mmol/L 135-145 K (test code = 0246762335) 3.9 mmol/L 3.5-5 CL (test code = 7803494548) 104 mmol/L 98-108 CO2 TOTAL (test code = 1722010230) 28 mmol/L 23-31 AGAP (test code = 5638613243) 2-16 BUN (test code = 4778160933) 15 mg/dL 7-23 GLUCOSE (test code = 6315583462) 96 mg/dL 70-110 CREATININE (test code = 2340803962) 0.68 mg/dL 0.6-1.25 CALCIUM (test code = 9499211997) 9.2 mg/dL 8.6-10.6 eGFR Calculation (Non-) (test code = 4897167055) mL/min/1.73m2 eGFR Calculation () (test code = 6802005920) mL/min/1.73m2 LAURIE (test code = LAURIE) Association [...] or abnormalities in imaging tests). [facility] ABDOMEN PELVIS W WO [id number] 19:39:221. ?Diffuse bladder wall thickening is likely [...] study and agree with theabove report.[facility]oundPOCT GLUCOSE (AUTOMATED) 2020-08-27 19:34:00* Test Item Value Reference Range Interpretation Comme nts POCT GLU (test code = 5903534707) 95 mg/dL 70-110 Lab Interpretation (test cod e = 25337-2) Normal [facility]oundTROPONIN [id number] 19:12:00* Test Item Value Reference Range Interpretation Comme nts TROPONIN I (test code = 4538245372) <0.012 See_Comment [Automated message] The system which [...] biotin. ? Lab Interpretation (test code = 96364-6) Normal [facility]oundPODC GLUCOSE (AUTOMATED)2020-08-27 14:42:00* Test Item Value Reference Range Interpretation Comme nts POCT GLU (test code = 3476147351) 99 mg/dL 70-110 Lab Interpretation (test cod e = 85079-7) Normal [facility]oundTROPONIN [id number] 13:09:00* Test Item Value Reference Range Interpretation Comme nts TROPONIN I (test code = 8064950324) <0.012 See_Comment [Automated message] The system which [...] biotin. ? Lab Interpretation (test code = 57849-1) Normal [facility] MoundLIPID PANEL (49839)(TOTAL CHOLESTEROL, TRIGLYCERIDES, HDL)2020-08-27 08:31:00* Test Item Value Reference Range Interpretation Comme nts CHOL (test code = 5497070097) 208 mg/dL 120-200 H HDL (test code = 8841217527) 28 mg/dL >40 L HDLC RATIO (test code = 8540375986) See_Comment H [Automated [employer]] The system which generated this result transmitted reference range: <=5.0. The reference range was not used to interpret this result as normal/abnormal. TRIG (test code = 5763923798) 351 mg/dL 30-170 H LDL CHOL (test code = 43689-9) 110 mg/dL See_Comment [[employer]ated [employer]] The system which generated this result transmitted reference range: <=160. The reference range was not used to interpret this result as normal/abnormal. VLDL (test code = 0413470590) 70 mg/dL 5-60 H Lab Interpretation (test code = 62364-6) Abnormal [facility]oundTHYROID STIMULATING [id number] 08:00:00 * Test Item Value Reference Range Interpretation Comme nts TSH (test code = 6191082255) See_Comment L Biotin has been reported to cause a negative bias, interpret results relative to patient's use of biotin. [Automated message] The system which generated this result transmitted reference range: 0.45 - 4.70 mIU/L. The reference range was not used to interpret this result as normal/abnormal. Lab Interpretation (test code = 60295-0) Abnormal [facility]COVID-19 (ID NOW RAPID TESTING)2020-08-27 07:03:00* Test Item Value Reference Range Interpretation Comme nts SARS-CoV-2 Rapid ID NOW (test code = 72965-8) Not Detected Not Detected LAURIE (test code = LAURIE) ID NOW COVID-19 As say is an isothermal nucleic acid amplification test intended for the qualitative detection of nucleic acid from SARS-CoV-2 viral RNA in nasopharyngeal (ORDERLY) specimens. It is used under Emergency Use [...] clinically indicated. Lab Interpretation (test code = 73565-4) Normal [facility] - DRUG SCREEN [id number] 06:58:00* Test Item Value Reference Range Interpretation Comme nts BENZO U (test code = 0697819640) Negative Negative HORACIO U (test code = 0187651544) Negative Negative AMPHET (test code = 3737554416) Negative Negative THC (test code = 0842521628) Negative Negative METHADONE (test code = 2607451040) Negative Negative Meth U (test code = 3756347001) Negative Negative OPIATES (test code = 6087125648) Negative Negative Cocaine Metabolite (test code = 3871988412) Negative Negative PROPOXY (test code = 4806032935) Negative Negative Tric U (test code = 4101393570) Negative Negative PCP (test code = 0068415471) Negative Negative OXYCOD (test code = 5726336060) Negative Negative LAURIE (test code = LAURIE) [...] legal testing). Lab Interpretation (test code = 95139-0) Normal [facility]oundUrinalysis2020-11-08 06:51:00* Test Item Value Reference Range Interpretation Comme nts APPEARANCE (test code = 3131009166) Clear Clear COLOR (test code = 5481613632) Yellow Yellow PH (test code = 1528340203) 4.8-8.0 SP GRAVITY (test code = 4262534269) 1.003-1.030 GLU U QUAL (test code = 3031249131) Normal Normal BLOOD (test code = 8825897667) Negative Negative KETONES (test code = 6730195864) 20 mg/dL Negative A PROTEIN (test code = 2887-8) Negative Negative UROBILIN (test code = 4321957268) Normal Normal BILIRUBIN (test code = 5746443277) Negative Negative NITRITE (test code = 3482606374) Negative Negative LEUK KENNY (test code = 7256558008) Negative Negative RBC/HPF (test code = 3685789652) See_Comment [Automated Ke[employer]] The system which generated this result transmitted reference range: 0 - 3 HPF. The reference range was not used to interpret this result as normal/abnormal. WBC/HPF (test code = 4719465779) See_Comment [Automated [employer]] The system which generated this result transmitted reference range: 0 - 5 HPF. The reference range was not used to interpret this result as normal/abnormal. BACTERIA (test code = 6502060586) Negative Negative MUCOUS (test code = 2579677653) Slight Negative LPF A Lab Interpretation (test code = 03790-6) Abnormal [facility]oundTroponin [id number] 06:45:00* Test Item Value Reference Range Interpretation Comme nts TROPONIN I (test code = 7667912072) <0.012 See_Comment [Automated message] The system which [...] biotin. ? Lab Interpretation (test code = 32399-8) Normal [facility] MoundETHANOL2020-11-08 06:34:00* Test Item Value Reference Range Interpretation Comme nts ALCOHOL (test code = 4312417892) 14 mg/dL LAURIE (test code = LAURIE) <10 Lakkxjzx37-427 Toxic>100 Depression of COMPUTER INFORMATION SCIENCE PROFESSOR>400 Fatalities Reported [facility]oundBasic Metabolic Panel (NA, K, CL, CO2, GLUCOSE, BUN, CREATININE, CA)2020-08-27 06:33:00* Test Item Value Reference Range Interpretation Comme nts NA (test code = 0654204898) 137 mmol/L 135-145 K (test code = 3709606069) 3.6 mmol/L 3.5-5 CL (test code = 2226023159) 102 mmol/L 98-108 CO2 TOTAL (test code = 9881529282) 26 mmol/L 23-31 AGAP (test code = 0173938282) 2-16 BUN (test code = 7569758547) 13 mg/dL 7-23 GLUCOSE (test code = 6474338031) 119 mg/dL 70-110 H CREATININE (test code = 7423754691) 0.86 mg/dL 0.6-1.25 CALCIUM (test code = 8899154237) 9.8 mg/dL 8.6-10.6 eGFR Calculation (Non-) (test code = 2069838951) mL/min/1.73m2 eGFR Calculation () (test code = 8663884984) mL/min/1.73m2 LAURIE (test code = LAURIE) Association [...] imaging tests). Lab Interpretation (test code = 77458-2) Abnormal [facility]oundHepatic Function Panel (ALB, T.PRO, BILI T, BU/BC, ALT, AST, ALK PHOS)2020-08-27 06:33:00* Test Item Value Reference Range Interpretation Comme nts TOTAL BILI (test code = 4736646418) 0.3 mg/dL 0.1-1.1 BILI UNCON (test code = 3870060360) 0.2 mg/dL 0.1-1.1 BILI CONJ (test code = 9027278816) 0.0 mg/dL 0-0.3 T PROTEIN (test code = 8126300045) 7.8 g/dL 6.3-8.2 ALBUMIN (test code = 6697871168) 4.5 g/dL 3.5-5 ALK PHOS (test code = 5814205755) 71 U/L 34-122 ALTv (test code = 1742-6) 26 U/L 5-50 AST(SGOT) (test code = 2750278751) 26 U/L 13-40 Lab Interpretation (test cod e = 85724-9) Normal [facility] MoundLipase [id number] 06:33:00* Test Item Value Reference Range Interpretation Comme [facility] LIPASE (test code = 2801412437) 77 U/L 0-220 Lab Interpretation (test cod e = 12485-2) Normal [facility] MoundaPTT2020-11-08 06:19:00* Test Item Value Reference Range Interpretation Comme [facility] APTT Patient (test code = 3173-2) See_Comment [Automated message] The system which generated this result transmitted reference range: 23 - 38 Seconds. The reference range was not used to interpret this result as normal/abnormal. LAURIE (test code = LAURIE) The [facility] patient population mean normal value for aPTT is 30 seconds. Lab Interpretation (test code = 21715-6) Normal [facility]oundProthrombin Time (PT) / [id number] 06:17:00 * Test Item Value Reference Range [...] the indications. Lab Interpretation (test code = 93139-9) Normal [facility]oundCBC with [id number] 06:07:00* Test Item Value Reference Range Interpretation [...] 32.8 g/dL 31.2-35 RDW-SD (test code = 57516-9) 42.9 fL 38.5-51.6 RDW-CV (test code = 788-0) 12.7 % 12.1-15.4 PLT (test code = 777-3) See_Comment [Automated [employer] ge] The system which generated this result transmitted reference range: 150 - 328 10*3/?L. The reference range was not used to interpret this result as normal/abnormal. MPV (test code = 04655-0) 9.1 fL 9.8-13 L NRBC/100 WBC (test code = 4418057422) See_Comment [Automated PS DEPT. ssage] The system which generated this result transmitted reference range: 0.0 - 10.0 /100 WBCs. The reference range was not used to interpret this result as normal/abnormal. NRBC x10^3 (test code = 7546374203) <0.01 See_Comment [Automated Keelvara ge] The system which generated this result transmitted reference range: 10*3/?L. The reference range was not used to interpret this result as normal/abnormal. GRAN MAT (NEUT) % (test code = 770-8) 52.4 % IMM GRAN % (test code = 9801080487) 0.50 % LYMPH % (test code = 736-9) 37.8 % MONO % (test code = 5905-5) 6.2 % EOS % (test code = 713-8) 2.3 % BASO % (test code = 706-2) 0.8 % GRAN MAT x10^3(ANC) (test code = 3976739233) 4.33 10*3/uL 1.99-6.95 IMM GRAN x10^3 (test code = 1532546253) 0.04 10*3/uL 0-0.06 LYMPH x10^3 (test code = 731-0) 3.13 10*3/uL 1.09-3.23 MONO x10^3 (test code = 742-7) 0.51 10*3/uL 0.36-1.02 EOS x10^3 (test code = 711-2) 0.19 10*3/uL 0.06-0.53 BASO x10^3 (test code = 704-7) 0.07 10*3/uL 0.01-0.09 Lab Interpretation (test code = 70094-0) Abnormal [facility] [id number] 04:41:00* Test Item Value Reference Range Interpretation Comme nts TROPONIN I (test code = 1431744519) 0.000 ng/mL See_Comment [Automated message] The system [...] biotin. ? Lab Interpretation (test code = 64197-4) Normal [facility]AD / C - DRUG SCREEN [id number] 03:46:00* Test Item Value Reference Range Interpretation Comme nts BENZO U (test code = 8812797252) Negative Negative HORACIO U (test code = 6622944046) Negative Negative AMPHET (test code = 0920488081) Negative Negative THC (test code = 2403367676) Negative Negative METHADONE (test code = 8777801757) Negative Negative Meth U (test code = 1687624880) Negative Negative OPIATES (test code = 5644927841) Presumptive Positive Negative A Cocaine Metabolite (test code = 4679334495) Negative Negative PROPOXY (test code = 7312689540) Negative Negative Tric U (test code = 7752630214) Negative Negative PCP (test code = 7323006506) Negative Negative OXYCOD (test code = 2329630985) Negative Negative LAURIE (test code = LAURIE) [...] legal testing). Lab Interpretation (test code = 43288-4) Abnormal [facility] MoundD-[id number] 03:29:00* Test Item Value Reference Range Interpretation Comments D-DIMER (test code = 5632037209) <0.27 See_Comment [Automated message] The system which [...] a diagnosis. Lab Interpretation (test code = 85014-7) Normal [facility]oundLIPASE2020-09-21 02:07:00* Test Item Value Reference Range Interpretation Comme nts LIPASE (test code = 6227373334) 58 U/L 0-220 Lab Interpretation (test cod e = 81998-5) [facility]XR CHEST 1 [id number] 01:44:02No acute cardiopulmonary abnormality. Preliminary Report Dictated [...] cardiopulmonary abnormality.Preliminary Report Dictated by Resident: Barry Groveramaki, MD., have reviewed this study and agree with theabove report.[facility] TROPONIN [id number] 01:40:00* Test Item Value Reference Range Interpretation Comme [facility] TROPONIN I (test code = 6484345177) 0.000 ng/mL See_Comment [Automated message] The system [...] biotin. ? Lab Interpretation (test code = 03035-5) Normal [facility] MoundPROTHROMBIN TIME / [id number] 01:39:00* Test Item Value Reference Range Interpretation [...] the indications. Lab Interpretation (test code = 10166-4) [facility]oundCOVID-19 (ID NOW RAPID TESTING)2020-07-10 01:36:00* Test Item Value Reference Range Interpretation Comme nts SARS-CoV-2 Rapid ID NOW (test code = 07742-8) Not Detected Not Detected LAURIE (test code = LAURIE) ID NOW COVID-19 As say is an isothermal nucleic acid amplification test intended for the qualitative detection of nucleic acid from SARS-CoV-2 viral RNA in nasopharyngeal (ORDERLY) specimens. It is used under Emergency Use [...] clinically indicated. Lab Interpretation (test code = 58278-9) Normal [facility]. METABOLIC PANEL (03347)2020-07-10 01:29:00* Test Item Value Reference Range Interpretation Comme nts NA (test code = 1154215200) 136 mmol/L 135-145 K (test code = 2802128734) 3.4 mmol/L 3.5-5 L CL (test code = 1485248765) 98 mmol/L 98-108 CO2 TOTAL (test code = 5552486912) 26 mmol/L 23-31 AGAP (test code = 9636558187) 2-16 BUN (test code = 7646098358) 16 mg/dL 7-23 GLUCOSE (test code = 9340417993) 165 mg/dL 70-110 H CREATININE (test code = 9318139404) 0.94 mg/dL 0.6-1.25 TOTAL BILI (test code = 5061596244) 0.4 mg/dL 0.1-1.1 CALCIUM (test code = 4419870763) 9.7 mg/dL 8.6-10.6 T PROTEIN (test code = 0827165341) 8.2 g/dL 6.3-8.2 ALBUMIN (test code = 2671221572) 4.4 g/dL 3.5-5 ALK PHOS (test code = 2947843737) 77 U/L 34-122 ALTv (test code = 1742-6) 31 U/L 5-50 AST(SGOT) (test code = 9180502880) 26 U/L 13-40 eGFR Calculation (Non-) (test code = 7242519644) mL/min/1.73m2 eGFR Calculation () (test code = 8171956297) mL/min/1.73m2 LAURIE (test code = LAURIE) Association [...] imaging tests). Lab Interpretation (test code = 02219-5) Abnormal [facility] WITH [id number] 01:11:00* Test Item Value Reference Range Interpretation Comme nts WBC (test code = 6690-2) See_Comment [[facility]ated [facility]] The system which generated this result transmitted [...] 34.0 g/dL 31.2-35 RDW-SD (test code = 02261-2) 42.6 fL 38.5-51.6 RDW-CV (test code = 788-0) 13.0 % 12.1-15.4 PLT (test code = 777-3) See_Comment [Automated messa ge] The system which generated this result transmitted reference range: 150 - 328 10*3/?L. The reference range was not used to interpret this result as normal/abnormal. MPV (test code = 43006-0) 9.5 fL 9.8-13 L NRBC/100 WBC (test code = 0059117862) See_Comment [Automated [facility] DEPT. ssage] The system which generated this result transmitted reference range: 0.0 - 10.0 /100 WBCs. The reference range was not used to interpret this result as normal/abnormal. NRBC x10^3 (test code = 2773010481) <0.01 See_Comment [Automated messa ge] The system which generated this result transmitted reference range: 10*3/?L. The reference range was not used to interpret this result as normal/abnormal. GRAN MAT (NEUT) % (test code = 770-8) 65.5 % IMM GRAN % (test code = 3651375527) 0.70 % LYMPH % (test code = 736-9) 26.1 % MONO % (test code = 5905-5) 5.7 % EOS % (test code = 713-8) 1.2 % BASO % (test code = 706-2) 0.8 % GRAN MAT x10^3(ANC) (test code = 8089633781) 6.62 10*3/uL 1.99-6.95 IMM GRAN x10^3 (test code = 4875189661) 0.07 10*3/uL 0-0.06 H LYMPH x10^3 (test code = 731-0) 2.64 10*3/uL 1.09-3.23 MONO x10^3 (test code = 742-7) 0.58 10*3/uL 0.36-1.02 EOS x10^3 (test code = 711-2) 0.12 10*3/uL 0.06-0.53 BASO x10^3 (test code = 704-7) 0.08 10*3/uL 0.01-0.09 Lab Interpretation (test code = 10331-1) Abnormal [facility] Notes Date/Time Note Provider Source 2024-02-04 14:36:04 Pt discharged with diagnosis of generalized abdominal pain and N/V. Printed and verbal instructions reviewed with and given to patient. No new prescriptions given for this visit. Pt verbalized understanding of teaching and recommended follow-up. Denies questions or concerns at this time. Pt ambulatory at discharge. Appears in no apparent distress. No ataxia noted. Iris Ferguson RN [facility] 2024-02-04 13:30:00 Report from Korey LAZO. ANDRAT Belkys Corrigan RN [facility] 2024-02-04 10:46:14 Pt arrived via private car with RLQ abd pain starting 2-3 days ago abd becoming worse Shalini Nair RN [facility] 2023-12-28 04:24:01 Pt given printed and verbal discharge instructions regarding epigastric pain, encouraged smaller meals. Pt verbalized understanding of instructions,pt encouraged to follow up with pcp and or GI Advised to seek medical attention for new/prolonged/worsening of symptoms, Awake, alert oriented, resp reg unlabored, skin w/d, pt leaving in no apparent distress, Cynthia Frank RN [facility] 2023-12-28 03:42:02 Pt reports the GI cocktail did not relieve his discomfort. Pt states he can feel his food coming up his esophagus. Pt is requesting medication for pain. Vira Huang RN [facility] 2023-12-28 03:07:24 Patient ambulatory to ED c/o waking up around 0100 this AM to food feeling like it was coming back up from his stomach to mouth. Patient last ate around 1900 and went to bed around 2200. Patient states having headache, denies N/V/D. Tylenol taken around 1900 for headache. 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 treatment: Medication (comment) SWITCH [employer]W SUPERVISOR treatment comments: Tylenol Travel and Exposure Screening: Symptoms Does patient have any of these symptoms?: (not recorded) Exposure Screening Has patient had contact with someone with a communicable disease in the last month?: (not recorded) Diseases exposed to:: (not recorded) Is Patient ?: (not recorded) Exposure Date: (not recorded) Chief Complaint: Chief Complaint Patient presents with REFLUX Headache History of Present Illness: Marysol Dumont is a 48 year old male who presents to the ED with epigastric fullness that woke him from sleep and radiated towards his throat. No N/V. No fever or chills. Denies any chest pain or discomfort. No palpitations/SOB. History provided by: Patient and medical records media relations director used: Yes Abdominal Pain Pain location: Epigastric Pain quality: fullness Pain radiates to: Epigastric region Pain severity: Moderate Onset quality: Sudden Duration: 1 hour Timing: Sporadic Chronicity: Recurrent Context: awakening from sleep Context: not alcohol use, not diet changes, not eating, not laxative use, not medication withdrawal, not previous surgeries, not recent illness, not recent travel, not retching, not sick contacts, not suspicious food intake and not trauma Relieved by: None tried Worsened by: Nothing Ineffective treatments: None tried Associated symptoms: no anorexia, no belching, no chest pain, no chills, no constipation, no cough, no diarrhea, no dysuria, no fatigue, no fever, no flatus, no hematemesis, no hematochezia, no hematuria, no melena, no nausea, no shortness of breath, no sore throat and no vomiting Risk factors: obesity Risk factors: no alcohol abuse, no aspirin use, not elderly, has not had multiple surgeries, no NSAID use and no recent hospitalization Past Medical History/Immunizations: Past Medical History: Diagnosis Date HTN (hypertension) Hypothyroidism Tetanus received in last 5 years: No Allergies: No Known Allergies Past Social History: Tobacco Use Every Day; 0.25 packs/day; Types: Cigarettes Smokeless Tobacco: Never used smokeless tobacco. Alcohol Use Yes. Comments: 6beers on the weekend Drug Use Never. Past Surgical History: Past Surgical History: Procedure Laterality Date LAPAROSCOPIC CHOLECYSTECTOMY N/A 08/29/2020 Surgeon: Vaishali Vicente MD; Location: [facility] OR Location OTHER Testicular surgery TONGUE TO LIP SURGERY TONSILLECTOMY Review of Systems: Review of Systems Constitutional: Negative. Negative for chills, fatigue and fever. HENT: Negative. Negative for sore throat. Eyes: Negative. Respiratory: Negative. Negative for cough and shortness of breath. Breasts: Negative. Cardiovascular: Negative. Negative for chest pain. Gastrointestinal: Positive for abdominal pain. Negative for anal bleeding, anorexia, blood in stool, constipation, diarrhea, flatus, hematemesis, hematochezia, melena, nausea, rectal pain and vomiting. Genitourinary: Negative. Negative for dysuria and hematuria. Musculoskeletal: Negative. Skin: Negative. Neurological: Negative. Psychiatric/Behavioral: Negative. All other systems reviewed and are negative. Endocrine: Endocrine negative Physical Exam: ED Triage Vitals [12/28/23 0313] Weight 110.6 kg (243 lb 14.4 oz) Actual or estimated Actual Height 1.727 m (5' 8") BP (!) 137/93 Pulse 93 Resp 16 Temp 37 ?C (98.6 ?F) Temp source Oral SpO2 97 % Measured on Room air Physical Exam Vitals and nursing note reviewed. Constitutional: General: He is not in acute distress. Appearance: Normal appearance. He is well-developed and normal weight. He is not ill-appearing, toxic-appearing or diaphoretic. HENT: Head: Normocephalic and atraumatic. Nose: Nose normal. No congestion or rhinorrhea. Mouth/Throat: Mouth: Mucous membranes are moist. Eyes: General: No scleral icterus. Right eye: No discharge. Left eye: No discharge. Extraocular Movements: Extraocular movements intact. Conjunctiva/sclera: Conjunctivae normal. Pupils: Pupils are equal, round, and reactive to light. Cardiovascular: Rate and Rhythm: Normal rate and regular rhythm. Heart sounds: Normal heart sounds. Pulmonary: Effort: Pulmonary effort is normal. No respiratory distress. Breath sounds: Normal breath sounds. No stridor. No wheezing, rhonchi or rales. Abdominal: General: Bowel sounds are normal. There is no distension. Palpations: Abdomen is soft. There is no mass. Tenderness: There is no abdominal tenderness. There [...] No bruising, erythema, lesion or rash. Neurological: Mental Status: He is alert and oriented to person, place, and time. Mental status is at baseline. Cranial Nerves: No cranial nerve deficit. Sensory: No sensory deficit. Motor: No weakness. Coordination: Coordination normal. Gait: Gait normal. Deep Tendon Reflexes: Reflexes normal. Psychiatric: Behavior: Behavior normal. Thought Content: Thought content normal. Judgment: Judgment normal. Radiology: No orders to display Lab Results: Lab Results - No data to display Orders and Treatments: No orders of the defined types were placed in this encounter. Orders Placed This Encounter Medications maalox:diphenhydrAMINE:lidoca ine 2 % viscous 1:1:1 (FIRST-MOUTHWASH BLM) oral suspension 15 mL dicyclomine (BENTYL) injection 20 mg First Provider Eval: ED Events Date/Time Event User Comments 12/28/23308 Medical Screening Begins CHAPITO CONTRERAS MD -- 12/28/23308 First Provider Evaluation CHAPITO CONTRERAS MD -- ED COURSE Diagnosis/Impression as of 12/28/234 Epigastric pain Procedures: Procedures MDM: Medical Decision Making Marysol Dumont is a 48 year old male who presents to the ED with epigastrici fullness Problems Addressed: Epigastric pain: acute illness or injury Amount and/or Complexity of Data Reviewed External Data Reviewed: notes. Risk OTC drugs. Prescription drug management. Risk Details: Will refer to GI/PCP Flowsheet Documentation: Scoring Tools: No data recorded Disposition/Condition: ED Disposition ED Disposition Disch - Home Condition Stable Comment -- Discharge Medications: Patient's Medications START taking these medications No medications on file CONTINUE taking these medications which have NOT CHANGED BENZONATATE 200 MG CAPSULE Take 1 capsule by mouth 3 (three) times daily as needed for Cough for up to 20 doses. [id number] 50-325-40 MG TABLET Take 1 tablet by mouth every 6 (six) hours as needed (Headache). DICYCLOMINE 20 MG TABLET Take 1 tablet by mouth 3 (three) times daily as needed for Abdominal pain. DICYCLOMINE 20 MG TABLET Take 1 tablet by mouth 4 (four) times daily. Indications: abdominal pain ENALAPRIL 20 MG TABLET Take 25 mg by mouth daily. FAMOTIDINE (PEPCID) 20 MG TABLET Take 1 tablet by mouth 2 (two) times daily. FAMOTIDINE (PEPCID) 40 MG TABLET Take 1 tablet by mouth daily. IBUPROFEN 600 MG TABLET Take 1 tablet by mouth every 6 (six) hours as needed for Pain (scale 4-6) for up to 30 doses. KETOROLAC 10 MG TABLET Take 1 tablet by mouth every 6 (six) hours as needed for Pain (scale 7-10). KETOROLAC 10 MG TABLET Take 1 tablet [...] TABLET Take 1 tablet by mouth daily. SEMAGLUTIDE, WEIGHT LOSS, SC inject under the skin. SUCRALFATE 1 GRAM TABLET Take 1 tablet [...] on file Follow-up: Contact information for follow-up Allison Sanchez MD Specialty: IM-GASTROENTEROLOGY [facility] [id number] [id number] Electronically signed by: Chapito Contreras MD 12/28/23 0414 [facility] 2023-11-06 02:36:40 Pt given printed and verbal discharge instructions regarding RLQ abdominal pain and encouraged hydration. Prescriptions provided Pt verbalized understanding of instructions, pt awake alert oriented, resp reg unlabored, skin w/d, color appropriate for race, moves all ext well,pt encouraged to follow up with pcp. Advised to seek medical attention for new/prolonged/worsening of symptoms No adverse reaction to meds given in ER noted upon discharge PIV d'cd, dressing to site, catheter in tact. Awake, alert oriented, resp reg unlabored, skin w/d, pt leaving amb with steady gait, in no apparent distress [employer] MANAGER Vira Huang RN [facility] 2023-11-05 23:47:32 Patient ambulatory to ED c/o abd pain that started yesterday. Patient went to PCP today and patient states no prescriptions were given. 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 Last medication taken was Tylenol tonight. Patient is tearful in triage. [employer] MANAGER Sarina Graham RN [facility] 2023-11-01 04:18:58 Pt given printed and verbal discharge instructions regarding generalized abdominal pain Prescriptions provided Pt verbalized understanding of instructions, pt awake alert oriented, resp reg unlabored, skin w/d, color appropriate for race, moves all ext well,pt encouraged to follow up with pcp Advised to seek medical attention for new/prolonged/worsening of symptoms No adverse reaction to meds given in ER noted upon discharge PIV d'cd, dressing to site, catheter in tact. Awake, alert oriented, resp reg unlabored, skin w/d, pt leaving amb with steady gait, in no apparent distress [facility] 2023-10-31 23:33:52 Pt arrived c/o RLQ/epigastric abdominal pain, vomiting, and headache. Pain began yesterday. 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 male NIDDM, now with severe RLQ abdominal and flank pain x 2 days. Patient denies fever/chills. Past Medical History/Immunizations: Past Medical History: Diagnosis Date HTN (hypertension) Hypothyroidism Tetanus received in last 5 years: No Allergies: No Known Allergies Past Social History: Tobacco Use Every Day; 0.25 packs/day; Types: Cigarettes Smokeless Tobacco: Never used smokeless tobacco. Alcohol Use Yes. Comments: 6beers on the weekend Drug Use Never. Past Surgical History: Past Surgical History: Procedure Laterality Date LAPAROSCOPIC CHOLECYSTECTOMY N/A 08/29/2020 Surgeon: Vaishali Vicente MD; Location: [facility] OR Location OTHER Testicular surgery TONGUE TO LIP SURGERY TONSILLECTOMY Review of Systems: Review of Systems Constitutional: Negative for chills and fever. HENT: Negative. Eyes: Negative. Respiratory: Negative. Breasts: Negative. Cardiovascular: Negative. Gastrointestinal: Positive for abdominal pain and nausea. Negative for abdominal distention, rectal pain and vomiting. Genitourinary: Positive for flank pain. Neurological: Negative. Psychiatric/Behavioral: Negative. Endocrine: Endocrine negative Physical Exam: ED Triage Vitals [10/31/23 2337] Weight 111.1 kg (245 lb) Actual or estimated Estimated by patient/family report Height 1.727 m (5' 8") BP (!) 158/94 Pulse 91 Resp 18 Temp 37.1 ?C (98.7 ?F) Temp source Oral SpO2 97 % Measured on Room air Physical Exam Vitals and nursing note reviewed. Constitutional: Appearance: Normal appearance. HENT: Head: Normocephalic. Mouth/Throat: Mouth: Mucous membranes are moist. Eyes: Pupils: Pupils are equal, round, and reactive to light. Cardiovascular: Rate and Rhythm: Normal rate. Pulses: Normal pulses. Pulmonary: Effort: Pulmonary effort is normal. Abdominal: Palpations: Abdomen is soft. There is no mass. Tenderness: There is abdominal tenderness. There is no right CVA tenderness, left CVA tenderness, guarding or rebound. Hernia: No hernia is present. Genitourinary: Penis: Normal. Testes: Normal. Comments: No obvious mass, no hernia sac, testicles-nl. [place], nontender Musculoskeletal: General: Normal range of motion. Skin: General: Skin is warm. Capillary Refill: Capillary refill takes less than 2 seconds. Neurological: General: No focal deficit present. Psychiatric: Mood and Affect: Mood normal. Radiology: CT ABDOMEN PELVIS W CONTRAST Final Result Ordering physician: JOSE FRANCISCO WALTERS Indication: Acute generalized abdominal pain COMPARISON: CT of the abdomen and pelvis dated 10/23/2023 TECHNIQUE: Axial images of the abdomen and pelvis are performed following administration of intravenous contrast material. Images were reformatted in the coronal and sagittal plane. CT scan was performed according to ALARA (as low as reasonably achievable) policy. FINDINGS: The lung bases are clear. There is a small hiatal hernia. The patient is status post cholecystectomy. The liver, gallbladder, spleen, adrenal glands and pancreas are within normal limits. The kidneys are normal in appearance bilaterally without hydronephrosis. No abdominal aortic aneurysm or dissection is appreciated. There is no free fluid in the pelvis. There is no bowel obstruction, widespread diverticulosis or acute diverticulitis. The appendix is identified and within normal limits. Bone windows through the abdomen and pelvis demonstrate no osseous destructive lesion. IMPRESSION No acute process identified in the abdomen or pelvis. RL: 460 AFC: [id number] Lab Results: Lab Results COMP. METABOLIC PANEL (80272) - Abnormal Result Value Ref Range NA 138 135 - 145 mmol/L K 3.8 3.5 - 5.0 mmol/L CL 106 98 - 108 mmol/L CO2 TOTAL 21 (*) 23 - 31 mmol/L AGAP 11 2 - 16 BUN 13 7 - 23 mg/dL GLUCOSE 113 (*) 70 - 110 mg/dL CREATININE 0.63 0.60 - 1.25 mg/dL TOTAL BILI 0.7 0.1 - 1.1 mg/dL CALCIUM 9.6 8.6 - 10.6 mg/dL T PROTEIN 9.0 (*) 6.3 - 8.2 g/dL ALBUMIN 5.0 3.5 - 5.0 g/dL ALK PHOS 73 34 - 122 U/L ALTv 33 5 - 50 U/L AST(SGOT) 33 13 - 40 U/L eGFR 118.8 mL/min/1.73m2 CBC WITH DIFF - Abnormal WBC 11.54 (*) 4.20 - 10.70 10*3/?L RBC 5.24 4.26 - 5.52 10*6/?L HGB 16.2 12.2 - 16.4 g/dL HCT 47.8 38.4 - 49.3 % MCV 91.2 81.7 - 95.6 fL MCH 30.9 26.1 - 32.7 pg MCHC 33.9 31.2 - 35.0 g/dL RDW-SD 46.6 38.5 - 51.6 fL RDW-CV 14.0 12.1 - 15.4 % PLT 312 150 - 328 10*3/?L MPV 9.7 (*) 9.8 - 13.0 fL NRBC/100 WBC 0.0 0.0 - 10.0 /100 WBCs NRBC x10 3 <0.01 10*3/?L GRAN MAT (NEUT) % 54.9 % IMM GRAN % 0.30 % LYMPH % 36.0 % MONO % 6.3 % EOS % 1.6 % BASO % 0.9 % GRAN MAT x10 3 (ANC) 6.35 1.99 - 6.95 10*3/uL IMM GRAN x10 3 0.03 0.00 - 0.06 10*3/uL LYMPH x10 3 4.15 (*) 1.09 - 3.23 10*3/uL MONO x10 3 0.73 0.36 - 1.02 10*3/uL EOS x10 3 0.18 0.06 - 0.53 10*3/uL BASO x10 3 0.10 (*) 0.01 - 0.09 10*3/uL URINALYSIS - Abnormal APPEARANCE Clear Clear COLOR Yellow Yellow PH 6.0 4.8 - 8.0 SP GRAVITY 1.026 1.003 - 1.030 GLU U QUAL Normal Normal BLOOD Negative Negative KETONES 5 mg/dL (*) Negative PROTEIN Negative Negative UROBILIN Normal Normal BILIRUBIN Negative Negative NITRITE Negative Negative LEUK KENNY Negative Negative RBC/HPF 3 0 - 3 HPF WBC/HPF 1 0 - 5 HPF BACTERIA Few (*) Negative MUCOUS Slight (*) Negative LPF SQ EPITH <1 HPF POCT GLUCOSE (AUTOMATED) - Normal POCT GLU 110 70 - 110 mg/dL LIPASE - Normal LIPASE 89 0 - 220 U/L EKG: If EKG completed, see Procedure Note. Orders and Treatments: Orders Placed This Encounter Procedures CT ABDOMEN PELVIS W CONTRAST POCT GLUCOSE (AUTOMATED) Complete Metabolic Panel CBC with Differential Lipase, Serum Urinalysis Orders Placed This Encounter Medications NaCl 0.9% (NS) bolus infusion 1,000 mL ketorolac (TORADOL) injection 30 mg morpHINE (4 mg/mL) injection 4 mg ondansetron (ZOFRAN (PF)) injection 4 mg morpHINE (4 mg/mL) injection 4 mg iopamidol (ISOVUE 370-500 mL) injection 100 mL acetaminophen (TYLENOL) tablet 650 mg First Provider Eval: ED Events None ED COURSE Diagnosis/Impression as of 11/01/23 0332 Generalized abdominal pain Procedures: Procedures MDM: Medical Decision Making Amount and/or Complexity of Data Reviewed Labs: ordered. Radiology: ordered. Risk OTC drugs. Prescription drug management. Parenteral controlled substances. A) Abdominal Pain-chronic/intermittent Disposition/Condition: Home, rest, hydration, ER warnings, f/u PCP in 1-2 days for re-evaluation ED Disposition None Discharge Medications: Patient's Medications START taking these medications No medications on file CONTINUE taking these medications which have NOT CHANGED BENZONATATE 200 MG CAPSULE Take 1 capsule by mouth 3 (three) times daily as needed for Cough for up to 20 doses. [id number] 50-325-40 MG TABLET Take 1 tablet by mouth every 6 (six) hours as needed (Headache). ENALAPRIL 20 MG TABLET Take 25 mg by mouth daily. IBUPROFEN 600 MG TABLET Take 1 tablet by mouth every 6 (six) hours as needed for Pain (scale 4-6) for up to 30 doses. KETOROLAC 10 MG TABLET Take 1 tablet by mouth every 6 (six) hours as needed for Pain (scale 7-10). KETOROLAC 10 MG TABLET Take 1 tablet [...] TABLET Take 1 tablet by mouth daily. SEMAGLUTIDE, WEIGHT LOSS, SC inject under the skin. SUCRALFATE 1 GRAM TABLET Take 1 tablet [...] these medications No medications on file Follow-up: Electronically signed by: Jose Francisco Walters MD 11/01/23 0332 [facility] 2023-10-23 02:26:31 Pt given printed and verbal discharge instructions regarding abdominal, encouraged hydration. Prescriptions provided Discussed ibuprofen and to take with food to avoid GI distress. Pt verbalized understanding of instructions, pt awake alert oriented, resp reg unlabored, skin w/d, color appropriate for race, moves all ext well,pt encouraged to follow up with GI. Advised to seek medical attention for new/prolonged/worsening of symptoms. No adverse reaction to meds given in ER noted upon discharge. PIV d'cd, dressing to site, catheter in tact. Awake, alert oriented, resp reg unlabored, skin w/d, pt leaving amb with steady gait, in no apparent distress. [facility] More Zamudio RN [facility] 2023-10-22 23:44:24 CC: Pt reports RLQ abd pain and 2 episodes of vomiting since morning. Pt has BM this morning was normal. 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 Also reports subjective fever. Also has dysuria and hematuria. Pt took Tylenol about noon without relief. Has vomited X 3 History provided by: Medical records and patient media relations director used: No Abdominal Pain Pain location: RLQ Pain quality: sharp Pain radiates to: Does not radiate Pain severity: Severe Onset quality: Gradual Duration: 1 day Timing: Sporadic Chronicity: Recurrent Context: not alcohol use, not awakening from sleep, not diet changes, not eating, not laxative use, not medication withdrawal, not previous surgeries, not recent illness, not recent travel, not retching, not sick contacts, not suspicious food intake and not trauma Relieved by: Nothing Worsened by: Nothing Ineffective treatments: None tried Associated symptoms: no anorexia, no belching, no chest pain, no chills, no constipation, no cough, no diarrhea, no dysuria, no fatigue, no fever, no flatus, no hematemesis, no hematochezia, no hematuria, no melena, no nausea, no shortness of breath, no sore throat and no vomiting Risk factors: obesity Risk factors: no alcohol abuse, has not had multiple surgeries, no NSAID use and no recent hospitalization Past Medical History/Immunizations: Past Medical History: Diagnosis Date HTN (hypertension) Hypothyroidism Tetanus received in last 5 years: No Allergies: No Known Allergies Past Social History: Tobacco Use Every Day; 0.25 packs/day; Types: Cigarettes Smokeless Tobacco: Never used smokeless tobacco. Alcohol Use Yes. Comments: 6beers on the weekend Drug Use Never. Past Surgical History: Past Surgical History: Procedure Laterality Date LAPAROSCOPIC CHOLECYSTECTOMY N/A 08/29/2020 Surgeon: Vaishali Vicente MD; Location: [facility] OR Location OTHER Testicular surgery TONGUE TO LIP SURGERY TONSILLECTOMY Review of Systems: Review of Systems Constitutional: Negative. Negative for chills, fatigue and fever. HENT: Negative. Negative for sore throat. Eyes: Negative. Respiratory: Negative. Negative for cough and shortness of breath. Breasts: Negative. Cardiovascular: Negative. Negative for chest pain. Gastrointestinal: Positive for abdominal pain. Negative for abdominal distention, anal bleeding, anorexia, blood in stool, constipation, diarrhea, flatus, hematemesis, hematochezia, melena, nausea, rectal pain and vomiting. Genitourinary: Negative. Negative for dysuria and hematuria. Musculoskeletal: Negative. Skin: Negative. Neurological: Negative. Psychiatric/Behavioral: Negative. All other systems reviewed and are negative. Endocrine: Endocrine negative Physical Exam: ED Triage Vitals [10/22/23 2345] Weight 113.4 kg (250 lb) Actual or estimated Estimated by patient/family report Height 1.727 m (5' 8") BP (!) 155/103 Pulse 93 Resp 20 Temp 36.7 ?C (98.1 ?F) Temp source Oral SpO2 96 % Measured on Room air Physical Exam Vitals and nursing note reviewed. Constitutional: General: He is not in acute distress. Appearance: Normal appearance. He is well-developed. He is obese. He is not ill-appearing, toxic-appearing or diaphoretic. HENT: Head: Normocephalic and atraumatic. Nose: Nose normal. No congestion or rhinorrhea. Mouth/Throat: Mouth: Mucous membranes are moist. Pharynx: Oropharynx is clear. Eyes: General: No scleral icterus. Right eye: No discharge. Left eye: No discharge. Extraocular Movements: Extraocular movements intact. Conjunctiva/sclera: Conjunctivae normal. Pupils: Pupils are equal, round, and reactive to light. Cardiovascular: Rate and Rhythm: Normal rate and regular rhythm. Pulses: Normal pulses. Heart sounds: Normal heart sounds. No murmur heard. Pulmonary: Effort: Pulmonary effort is normal. No respiratory distress. Breath sounds: Normal breath sounds. No stridor. No wheezing, rhonchi or rales. Chest: Chest wall: No tenderness. Abdominal: General: Bowel sounds are normal. There is no distension. Palpations: Abdomen is soft. There is no mass. Tenderness: There is no abdominal tenderness. There is no right CVA tenderness, left CVA tenderness, guarding or rebound. Hernia: No hernia is present. Musculoskeletal: General: No swelling, tenderness, deformity or signs of injury. Normal range of motion. Cervical back: Normal range of motion and neck supple. No rigidity or tenderness. Right lower leg: No edema. Left lower leg: No edema. Lymphadenopathy: Cervical: No cervical adenopathy. Skin: General: [...] Thought content normal. Judgment: Judgment normal. Radiology: CT ABDOMEN PELVIS W CONTRAST Final Result Ordering physician: CHAPITO CONTRERAS Indication: Acute right lower quadrant abdominal pain COMPARISON: CT of the abdomen and pelvis dated 09/26/2023 TECHNIQUE: Axial images of the abdomen and pelvis are performed following administration of intravenous contrast material. Images were reformatted in the coronal and sagittal plane. CT scan was performed according to ALARA (as low as reasonably achievable) policy. FINDINGS: The lung bases are clear. The patient is status post cholecystectomy. The liver, spleen, adrenal glands and pancreas are within normal limits. The kidneys are normal in appearance bilaterally without hydronephrosis. No abdominal aortic aneurysm or dissection is appreciated. There is no free fluid in the pelvis. There is no bowel obstruction, widespread diverticulosis or acute diverticulitis. The appendix is identified and within normal limits. Bone windows through the abdomen and pelvis demonstrate no osseous destructive lesion. 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 IMPRESSION No acute process identified in the abdomen or pelvis. Normal appendix. RL: 460 AFC: [id number] Lab Results: Lab Results COMP. METABOLIC PANEL (23164) - Abnormal Result Value Ref Range NA 140 135 - 145 mmol/L K 3.7 3.5 - 5.0 mmol/L CL 105 98 - 108 mmol/L CO2 TOTAL 23 23 - 31 mmol/L AGAP 12 2 - 16 BUN 15 7 - 23 mg/dL GLUCOSE 126 (*) 70 - 110 mg/dL CREATININE 0.89 0.60 - 1.25 mg/dL TOTAL BILI 0.6 0.1 - 1.1 mg/dL CALCIUM 9.5 8.6 - 10.6 mg/dL T PROTEIN 8.6 (*) 6.3 - 8.2 g/dL ALBUMIN 4.7 3.5 - 5.0 g/dL ALK PHOS 84 34 - 122 U/L ALTv 38 5 - 50 U/L AST(SGOT) 33 13 - 40 U/L eGFR 107.0 mL/min/1.73m2 CBC WITH DIFF - Abnormal WBC 11.85 (*) 4.20 - 10.70 10*3/?L RBC 5.23 4.26 - 5.52 10*6/?L HGB 16.1 12.2 - 16.4 g/dL HCT 47.5 38.4 - 49.3 % MCV 90.8 81.7 - 95.6 fL MCH 30.8 26.1 - 32.7 pg MCHC 33.9 31.2 - 35.0 g/dL RDW-SD 45.0 38.5 - 51.6 fL RDW-CV 13.6 12.1 - 15.4 % PLT 307 150 - 328 10*3/?L MPV 9.3 (*) 9.8 - 13.0 fL NRBC/100 WBC 0.0 0.0 - 10.0 /100 WBCs NRBC x10 3 <0.01 10*3/?L SEG % 49 33 - 76 % LYMPH % 40 14 - 54 % MONO % 4 0 - 4 % EOS % 7 (*) 0 - 3 % ANC 5.81 1.99 - 6.95 10*3/uL URINALYSIS - Abnormal APPEARANCE Clear Clear COLOR Yellow Yellow PH 6.0 4.8 - 8.0 SP GRAVITY 1.026 1.003 - 1.030 GLU U QUAL Normal Normal BLOOD Negative Negative KETONES Negative Negative PROTEIN Negative Negative UROBILIN 2.0 mg/dL (*) Normal BILIRUBIN Negative Negative NITRITE Negative Negative LEUK KENNY Negative Negative RBC/HPF 0 0 - 3 HPF WBC/HPF 0 0 - 5 HPF BACTERIA Negative Negative MUCOUS Slight (*) Negative LPF SQ EPITH 1 HPF LIPASE - Normal LIPASE 80 0 - 220 U/L Orders and Treatments: Orders Placed This Encounter Procedures CT ABDOMEN PELVIS W CONTRAST Complete Metabolic Panel CBC with Differential Lipase, Serum Urinalysis Orders Placed This Encounter Medications ketorolac (TORADOL) injection 30 mg ondansetron (ZOFRAN (PF)) injection 4 mg FENTanyl PF (SUBLIMAZE (PF)) injection 50 mcg iopamidol (ISOVUE 370-500 mL) injection 100 mL ketorolac 10 mg tablet First Provider Eval: ED Events Date/Time Event User Comments 10/23/232352 Medical Screening Begins CHAPITO CONTRERAS MD -- 10/23/232352 First Provider Evaluation CHAPITO CONTRERAS MD -- ED COURSE Procedures: Procedures MDM: Medical Decision Making Marysol Dumont is a 48 year old male who presents to the ED with RLQ pain X 1 day Amount and/or Complexity of Data Reviewed External Data Reviewed: radiology and notes. Labs: ordered. Decision-making details documented in ED Course. Radiology: ordered. Decision-making details documented in ED Course. Risk Prescription drug management. Parenteral controlled substances. Risk Details: Will refer to GI Flowsheet Documentation: Scoring Tools: No data recorded Disposition/Condition: ED Disposition ED Disposition Disch - Home Condition Stable Comment -- Discharge Medications: Patient's Medications START taking these medications KETOROLAC 10 MG TABLET Take 1 tablet by mouth every 6 (six) hours as needed for Pain (scale 7-10). CONTINUE taking these medications which have NOT CHANGED BENZONATATE 200 MG CAPSULE Take 1 capsule by mouth 3 (three) times daily as needed for Cough for up to 20 doses. [id number] 50-325-40 MG TABLET Take 1 tablet by mouth every 6 (six) hours as needed (Headache). ENALAPRIL 20 MG TABLET Take 25 mg [...] TABLET Take 1 tablet by mouth daily. SEMAGLUTIDE, WEIGHT LOSS, SC inject under the skin. SUCRALFATE 1 GRAM TABLET Take 1 tablet [...] on file Follow-up: Contact information for follow-up Omaira Chen MD Specialty: IM-GASTROENTEROLOGY [address] [place] [id number] Electronically signed by: Chapito Contreras MD 10/23/23219 [facility] 2023-07-07 05:55:19 Formatting of this n ote might be different from the original. Awake, alert oriented X4, respiratory even and unlabored,skin w/d color appropriate for race, moves all ext well, pt encouraged to follow up with pcp and or return as needed Pt given printed and verbal discharge instructions regarding Nonintractable headache, Uncontrolled hypertension , patient verbralized understanding and signature obtained, patient denies any other concerns. Prescriptions provided Advised to seek medical attention for new/prolonged/worsening of symptoms, No adverse reaction to meds given in ER noted upon discharge [facility] 2023-07-07 03:54:59 Formatting of this n ote might be different from the original. Pt states that he last night his blood pressure was running high and he has headache. 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 Pt state that he took his enalapril around 2300 last night. [facility] [employer] 2023-07-07 03:49:00 Formatting of this n ote is different from the original. [facility] Emergency Department Note Patient Name: Marysol Dumont Date of : 1975 47 year old male Treatment Room: [place] [address] Primary Care Physician: PATIENT DOES NOT HAVE A PCP Patient Escorted by: Self [9] Mode of Arrival: Personal means [1] EMS Treatment Prior to ED Arrival: [employer] treatment: None Travel and Exposure Screening: Symptoms Does patient have any of these symptoms?: (not recorded) Exposure Screening Has patient had contact with someone with a communicable disease in the last month?: (not recorded) Diseases exposed to:: (not recorded) Is Patient ?: (not recorded) Exposure Date: (not recorded) Chief Complaint: Chief Complaint Patient presents with Headache Hypertension History of Present Illness: Marysol Dumont is a 47 year old male [...] neck pain or stiffness. No rash. 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 used: No Hypertension Severity: Moderate Onset quality: Sudden Duration: 2 hours Timing: Sporadic Chronicity: Chronic Time since last dose of antihypertensive: 2 hours Notable [employer] blood pressures: 198/112 Context: normal sodium, not caffeine, not drug abuse, not herbal remedies, not medication change, not noncompliance, not OTC medications used and not stress Worsened by: Nothing Associated symptoms: headaches Associated symptoms: no abdominal pain, [...] PVD and no tobacco use Past Medical History/Immunizations: Past Medical History: Diagnosis Date HTN (hypertension) Hypothyroidism DMT2 AIMEE Obesity Tetanus received in last 5 years: No Childhood immunizations: Up-to-date Allergies: No Known Allergies Past Social History: Tobacco Use Every Day; 0.25 packs/day; Types: Cigarettes Smokeless Tobacco: Never used smokeless tobacco. Alcohol Use Yes. Comments: 6beers on the weekend Drug Use Never. Past Surgical History: Past Surgical History: Procedure Laterality Date LAPAROSCOPIC CHOLECYSTECTOMY N/A 08/29/2020 Surgeon: Vaishali Vicente MD; Location: [facility] OR Location OTHER Testicular surgery [...] nervous/anxious. All other systems reviewed and are negative. Endocrine: Endocrine negative Physical Exam: ED Triage Vitals [07/07/23 0357] Weight 113.4 kg (250 lb) Actual or estimated Height 1.727 m (5' 8") BP (!) 160/94 Pulse 85 Resp 18 Temp 36.4 ?C (97.6 ?F) Temp source Oral SpO2 95 % Measured on Room air Physical Exam Vitals and nursing note reviewed. Constitutional: General: He [...] Heart sounds: Normal heart sounds. No murmur heard. Pulmonary: Effort: Pulmonary effort is normal. No [...] Thought content normal. Judgment: Judgment normal. Radiology: No orders to display Lab Results: Lab Results COMP. METABOLIC PANEL (18827) - Abnormal Result Value Ref Range NA [...] 70 0 - 220 U/L Orders and Treatments: Orders Placed This Encounter Procedures TROPONIN I COMP. METABOLIC PANEL (30438) LIPASE, SERUM CBC WITH DIFF URINALYSIS Orders Placed This Encounter Medications ketorolac (TORADOL) injection 30 mg metoclopramide HCl (REGLAN) injection 10 mg qssfdiofdw-hbjyspttxfrux-hyed 50-325-40 mg tablet First Provider Eval: ED Events Date/Time Event User Comments 07/07/23399 Medical Screening Begins CHAPITO CONTRERAS MD -- 07/07/23399 First Provider Evaluation CHAPITO CONTRERAS MD -- No notes of EC Admission Criteria type on file. ED COURSE Diagnosis/Impression as of 07/07/23 0553 Nonintractable headache, unspecified chronicity pattern, unspecified headache type Uncontrolled hypertension Procedures: Procedures MDM: Medical Decision Making Marysol Dumont is a 47 year old male who presents to the ED with headache and elevated blood pressure reading Problems Addressed: Nonintractable headache, unspecified chronicity pattern, unspecified headache type: acute illness or injury Details: Resolved Uncontrolled hypertension: chronic illness or injury Details: Improved in ED Amount and/or Complexity of Data Reviewed Labs: ordered. Decision-making details documented in ED Course. Risk OTC drugs. Prescription drug management. Flowsheet Documentation: Scoring Tools: No data recorded Disposition/Condition: ED Disposition ED Disposition Disch - Home Condition Stable Comment -- Discharge Medications: Patient's Medications START taking these medications [id number] 50-325-40 MG TABLET Take 1 tablet by [...] on file Follow-up: Contact information for follow-up Ulises Carter MD Specialty: PN-NEUROLOGY [facility] [address] [place] [address]. [facility] [id number] Electronically signed by: Chapito Contreras MD 07/07/23 6551 [facility] 2023-05-25 22:36:27 Formatting of this n ote might be different from the original. Pt given printed and verbal discharge instructions regarding T2DM, chest pain. Generalized abdominal pain, and acute nonintracable headache. Prescriptions provided Discussed ibuprofen and to take with food to avoid GI distress. Pt verbalized understanding of instructions, pt awake alert oriented, resp reg unlabored, skin w/d, color appropriate for race, moves all ext well,pt encouraged to follow up with pcp Advised to seek medical attention for new/prolonged/worsening of symptoms No adverse reaction to meds given in ER noted upon discharge PIV d'cd, dressing to site, catheter in tact. Awake, alert oriented, resp reg unlabored, skin w/d, pt leaving amb with steady gait, in no apparent distress Vira Huang RN [facility] 2023-05-25 17:15:02 Formatting of this n ote might be different from the original. Pt arrived via private car with c/o chest pain that started about 3 hours [employer], EKG done in triage, PA assessing pt at this time. Shalini Nair RN [facility]
[2024-05-29] MEDS ORDERED: ASPIRIN 81 MG CHEWABLE TABLET ONE (10:44)
[2024-05-29 10:58] LABS: Absolute Eosinophils 0.1 K/uL (0-0.5); Absolute Lymphocytes (CBC) 1.6 K/uL (0.7-4.9); Absolute Monocytes 0.6 K/uL (0.1-1.3); Absolute Neutrophil 6.9 K/uL (1.8-8.0); Basophils % 0.5 % (0-1.3); Eosinophils % 0.7 % (0-4.4); Hematocrit 44.4 % (39.6-49.0); Hemoglobin 14.9 g/dL (13.6-17.9); Lymphocytes % 17.5 % (15.3-44.8); MCH 31.1 pg (27.0-35.0); MCHC 33.4 g/dL (32.0-36.0); MPV 7.2 fL (7.6-11.3); Monocytes % 6.9 % (3.3-12.3); Neutrophils % 74.4 % (41.7-73.7); Nucleated Red Blood Cells % 0.1 % (0-0); Platelets 302 thou/uL (152-406); RBC Red Blood Cell Count 4.77 M/uL (4.33-5.43); Red Cell Distribution Width 14.5 % (12.1-15.2)
[2024-05-29] MEDS ORDERED: NITROGLYCERIN 0.4 MG/TAB SL ONE (11:00)
[2024-05-29 11:03] LABS: PT Prothrombin Time 11.4 SECONDS (9.4-12.5); Protime INR 1.02
[2024-05-29 11:19] LABS: SARS-CoV-2 Antigen CONTROL BLUE LINE VIS/BG OK; SARS-CoV-2 Antigen Rapid Res Negative (Negative)
[2024-05-29 11:24] LABS: ALT/SGPT 23 U/L (16-61); Albumin 3.6 g/dL (3.4-5.0); Albumin/Globulin Ratio 0.9 (1.1-1.8); Alkaline Phosphatase 82 U/L (45-117); Anion Gap 7.7 mEq/L (5.0-15.0); BUN Blood Urea Nitrogen 9 mg/dL (7-18); Bicarbonate 25 mEq/L (21-32); Bilirubin Total 0.4 mg/dL (0.2-1.0); Globulin 3.8 g/dL (2.3-3.5); Glomerular Filtration Rate 107 ml/min (=/>90); Glucose Level 120 mg/dL (74-106); NT PRO-BNP 89 pg/mL (<125); Potassium 3.7 mEq/L (3.5-5.1); Protein, Total 7.4 g/dL (6.4-8.2); Sodium Level 138 mEq/L (136-145); Troponin High Sensitivity 39.1 pg/mL (<58.9)
[2024-05-29 11:27] LABS: AST/SGOT < 10 U/L (15-37); Bilirubin Direct < 0.2 mg/dL (0-0.2); Bilirubin Indirect, Calculated 0.2 mg/dL (0.2-0.8)
--- NOTE | 2024-05-29 11:56 | RAD REPORT ---
EXAM DESCRIPTION: [facility] Single View05/29/2024 11:08 am CLINICAL HISTORY: Chest pain COMPARISON: February 2024 FINDINGS: The lungs appear clear of acute infiltrate. The heart is mildly enlarged IMPRESSION: No acute abnormalities displayed
[2024-05-29] MEDS ORDERED: ONDANSETRON 4 MG/2 ML VIAL ONE (12:36)
[2024-05-29] MEDS ORDERED: MORPHINE 4 MG/ML SYR ONE (12:36)
--- NOTE | 2024-05-29 12:57 | EDPHYS ---
Physician Documentation [facility] Name: Carrington Dumont Age: 48 yrs Sex: Male : 1975 Arrival Date: 05/29/2024 Time: 10:22 Bed 4 Private MD: ED Physician Marc Flores HPI: 05/29 10:51 This 48 yrs old Male presents to ER via Ambulatory with complaints of Chest sb4 Pressure. 10:51 intermittent chest pain and pressure for several months, got worse yesterday. states sb4 the pain feels like when he had to get a stent 4 months ago. endorses sob, denies nausea, vomiting, diaphoresis. reports diarrhea since last night. has not followed up with cardiology. Historical: - Allergies: 10:40 PENICILLINS; nj1 - PMHx: 10:40 Hypertension; Hypothyroidism; Coronary atherosclerosis; nj1 - PSHx: 10:40 Cholecystectomy; Stented artery; nj1 - Immunization history:: Client reports receiving the 2nd dose of the Covid vaccine. - Infectious Disease History:: Denies. - Social history:: Smoking status: Patient reports the use of cigarette tobacco products, smokes one-half pack cigarettes per day. ROS: 10:51 Constitutional: Negative for fever, chills, and weight loss, sb4 10:51 Cardiovascular: Positive for chest pain, 10:51 Respiratory: Positive for shortness of breath, 10:51 All other systems are negative, Exam: 10:53 Head/Face: Normocephalic, atraumatic. Eyes: Extra-ocular motions intact. Periorbital sb4 areas with no swelling, redness, or edema. ENT: Mucous membranes moist. Cardiovascular: Regular rate and rhythm with a normal S1 and S2. Respiratory: Lungs have equal breath sounds bilaterally, clear to auscultation and percussion. No rales, rhonchi or wheezes noted. No increased work of breathing, no retractions or nasal flaring. Abdomen/GI: Soft, non-tender, no distension. Skin: Warm, dry with normal turgor. Normal color with no rashes, no lesions, and no evidence of cellulitis. MS/ Extremity: Pulses equal, no cyanosis. Neurovascular intact. Full, normal range of motion. 10:53 Constitutional: The patient appears alert, awake, uncomfortable, Vital Signs: 10:31 BP 155 / 88; Pulse 85; Resp 18; Temp 97.9(O); Pulse Ox 98% on R/A; Pain 8/10; nj1 11:02 BP 149 / 114; nj1 11:07 BP 139 / 87; nj1 11:12 BP 159 / 102; nj1 12:35 BP 159 / 86; Pulse 79; Resp 20; Pulse Ox 99% on R/A; Pain 8/10; nj1 14:25 BP 141 / 88; Pulse 80; Resp 15; Pulse Ox 100% ; Pain 8/10; nj1 10:31 Pain Scale: Adult nj1 12:35 Pain Scale: Adult nj1 14:25 Pain Scale: Adult nj1 MDM: 10:29 Patient medically screened. sb4 11:28 Scoring Tools HEART Score: History: ECG: Age: Risk Factors: > or = 3 Risk factors for sb4 atherosclerotic disease (2), Troponin: Total Score = 4. 12:57 Data reviewed: vital signs, nurses notes, lab test result(s), EKG, radiologic studies, sb4 and as a result, I will admit patient. Consideration of Admission/Observation Patient was admitted/placed on observation. Counseling: I had a detailed discussion with the patient and/or guardian regarding the historical points, exam findings, and any diagnostic results supporting the discharge/admit diagnosis, lab results, radiology results, the need for further work-up and treatment in the hospital. 05/29 10:30 Order name: Basic Metabolic Panel; Complete Time: 11:28 sb4 05/29 10:30 Order name: CBC with Diff; Complete Time: 10:59 sb4 05/29 10:30 Order name: LFT's; Complete Time: 11:28 sb4 05/29 10:30 Order name: Magnesium; Complete Time: 11:28 sb4 05/29 10:30 Order name: NT PRO-BNP; Complete Time: 11:28 sb4 05/29 10:30 Order name: PT-INR; Complete Time: 11:06 sb4 05/29 10:30 Order name: Troponin HS; Complete Time: 11:28 sb4 05/29 10:35 Order name: TSH; Complete Time: 11:28 sb4 05/29 10:36 Order name: SARS RAPID; Complete Time: 11:22 sb4 05/29 14:12 Order name: T4 Free EDMS 05/29 14:12 Order name: Urinalysis w/ reflexes EDMS 05/29 14:12 Order name: Basic Metabolic Panel EDMS 05/29 14:12 Order name: Basic Metabolic Panel EDMS 05/29 14:12 Order name: Basic Metabolic Panel EDMS 05/29 14:12 Order name: Basic Metabolic Panel EDMS 05/29 14:12 Order name: Basic Metabolic Panel EDMS 05/29 14:12 Order name: Basic Metabolic Panel EDMS 05/29 14:12 Order name: CBC with Automated Diff EDMS 05/29 14:12 Order name: CBC with Automated Diff EDMS 05/29 14:12 Order name: CBC with Automated Diff EDMS 05/29 14:12 Order name: CBC with Automated Diff EDMS 05/29 14:12 Order name: CBC with Automated Diff EDMS 05/29 14:12 Order name: CBC with Automated Diff EDMS 05/29 14:12 Order name: Lipid Profile EDMS 05/29 14:12 Order name: Lipid Profile EDMS 05/29 14:12 Order name: Magnesium EDMS 05/29 14:12 Order name: Magnesium EDMS 05/29 14:12 Order name: Magnesium EDMS 05/29 14:12 Order name: Magnesium EDMS 05/29 14:13 Order name: Magnesium EDMS 05/29 14:13 Order name: Magnesium EDMS 05/29 14:13 Order name: Phosphorus EDMS 05/29 14:13 Order name: Phosphorus EDMS 05/29 14:13 Order name: Phosphorus EDMS 05/29 14:13 Order name: Phosphorus EDMS 05/29 14:13 Order name: Phosphorus EDMS 05/29 14:13 Order name: Phosphorus EDMS 10 14:13 Order name: Troponin High Sensitivity EDMS 05/29 14:13 Order name: Troponin High Sensitivity EDMS 05/29 14:13 Order name: Troponin High Sensitivity EDMS 05/29 10:30 Order name: XRAY Chest (1 view); Complete Time: 11:58 sb4 05/29 10:30 Order name: Cardiac monitoring; Complete Time: 10:38 sb4 05/29 10:30 Order name: EKG - Nurse/Tech; Complete Time: 10:38 sb4 05/29 10:30 Order name: IV Saline Lock; Complete Time: 10:53 sb4 05/29 10:30 Order name: Labs collected and sent; Complete Time: 10:53 sb4 05/29 10:30 Order name: O2 Per Protocol; Complete Time: 10:38 sb4 05/29 10:30 Order name: O2 Sat Monitoring; Complete Time: 10:38 sb4 EC:53 Rate is 83 beats/min. Rhythm is regular, Sinus Rhythm. IA interval is shortened at 106 sb4 msec. QRS interval is normal at 84 msec. QT interval is normal at 364 msec. No Q waves. T waves are Normal. No ST changes noted. Clinical impression: No evidence of ischemia. Interpreted by me. Reviewed by me. Administered Medications: 10:45 Drug: Aspirin PO 162 mg PO once Route: PO; nj1 11:16 Follow up: Response: No adverse reaction nj1 11:02 Drug: Nitroglycerin Sublingual 0.4 mg Sublingual once; every five minute if needed x3 nj1 Route: Sublingual; 11:07 Drug: Nitroglycerin Sublingual 0.4 mg Sublingual once; every five minute if needed x3 nj1 Route: Sublingual; 11:12 Drug: Nitroglycerin Sublingual 0.4 mg Sublingual once; every five minute if needed x3 nj1 Route: Sublingual; 11:17 Follow up: Response: No adverse reaction; Pain is unchanged, physician notified nj1 12:38 Drug: Ondansetron IVP 4 mg IVP once; over 2 minutes Route: IVP; Site: right antecubital;nj1 12:40 Drug: morphine IVP or IV 4 mg IVP once over 4 mins Route: IVP; Infused Over: 4 mins; nj1 Site: right antecubital; Disposition Summary: 05/29/24 12:57 Hospitalization Ordered Notes: Hospitalization Status: Observation sb4 Provider: Demario Trevizo sb4 Location: Telemetry/MedSurg (observation) sb4 Condition: Fair sb4 Problem: new sb4 Symptoms: are unchanged sb4 Bed/Room Type: Standard sb4 Room Assignment: 410(05/29/24 14:21) Diagnosis - Chest pain, unspecified sb4 Forms: - Medication Reconciliation Form sb4 - SBAR form sb4 - Leadership Thank You Letter sb4 Signatures: Dispatcher [employer] Alma Blum RN RN Leyla Hernandez PA-C PA-C sb4 Jessi Lepe, RN RN nj1 Corrections: (The following items were deleted from the chart) 10:30 10:30 BASIC METABOLIC PANEL+C.LAB.BRZ ordered. EDMS EDMS 10:30 10:30 CBC+H.LAB.BRZ ordered. EDMS EDMS 10:30 10:30 HEPATIC FUNCTION+C.LAB.BRZ ordered. EDMS EDMS 10:30 10:30 MAGNESIUM+C.LAB.BRZ ordered. EDMS EDMS 10:30 10:30 PROBNP+C.LAB.BRZ ordered. EDMS EDMS 10:30 10:30 PROTIME (+INR)+COAG.LAB.BRZ ordered. EDMS EDMS 10:30 10:30 Troponin High Sensitivity+C.LAB.BRZ ordered. EDMS EDMS 10:30 10:30 Chest Single View+RAD.RAD.BRZ ordered. EDMS EDMS 14:21 12:57 sb4 hb
--- NOTE | 2024-05-29 12:57 | ER ---
Nurse's Notes [facility] Name: Carrington Dumont Age: 48 yrs Sex: Male : 1975 Arrival Date: 05/29/2024 Time: 10:22 Bed 4 Private MD: Diagnosis: Chest pain, unspecified Presentation: 05/29 10:31 Chief complaint: Patient states: Chest pressure since 8pm last night, intermittent in nj1 severity. Denies nausea, vomiting. States he has had 5 episodes of diarrhea since. 10:31 Coronavirus screen: Vaccine status: Patient reports receiving the 2nd dose of the covid nj1 vaccine. Ebola Screen: Patient denies travel to an Ebola-affected area in the 21 days before illness onset. Initial Sepsis Screen: Does the patient meet any 2 criteria? No. Patient's initial sepsis screen is negative. Does the patient have a suspected source of infection? No. Patient's initial sepsis screen is negative. Risk Assessment: Do you want to hurt yourself or someone else? Patient reports no desire to harm self or others. Onset of symptoms was May 28, 2024 at 20:00. 10:31 Method Of Arrival: Ambulatory [facility] 10:31 Acuity: DAYANNA 2 nj1 Historical: - Allergies: 10:40 PENICILLINS; nj1 - PMHx: 10:40 Hypertension; Hypothyroidism; Coronary atherosclerosis; nj1 - PSHx: 10:40 Cholecystectomy; Stented artery; nj1 - Immunization history:: Client reports receiving the 2nd dose of the Covid vaccine. - Infectious Disease History:: Denies. - Social history:: Smoking status: Patient reports the use of cigarette tobacco products, smokes one-half pack cigarettes per day. Screenin:54 [facility] ED Fall Risk Assessment (Adult) History of falling in the last 3 months, [facility] including since admission No falls in past 3 months (0 pts) Confusion or Disorientation No (0 pts) Intoxicated or Sedated No (0 pts) Impaired Gait No (0 pts) Mobility Assist Device Used No (0 pt) Altered Elimination No (0 pt) Score/Fall Risk Level 0 - 2 = Low Risk Oriented to surroundings, Maintained a safe environment, Assessed \T\ reinforced patient's understanding of fall precautions, Hourly rounding (assess needs \T\ fall precautionary measures) done. Abuse screen: Denies threats or abuse. Denies injuries from another. Nutritional screening: No deficits noted. Tuberculosis screening: No symptoms or risk factors identified. Assessment: 10:35 General: Appears in no apparent distress. uncomfortable, Behavior is calm, cooperative, nj1 appropriate for age. 10:35 Pain: Complains of pain in chest Pain currently is 8 out of 10 on a pain scale. at nj1 worst was 10 out of 10 on a pain scale. Pain began 1 day ago. Neuro: Level of Consciousness is awake, alert, obeys commands, Oriented to person, place, time, situation. Cardiovascular: Patient's skin is warm and dry. Rhythm is regular Chest pain is located in epigastric area began 1 day ago episodes are intermittent. Respiratory: Airway is patent Respiratory effort is even, unlabored. GI: Reports diarrhea, Patient currently denies nausea, vomiting. 10:58 Pain: Pain does not radiate. nj1 12:35 Reassessment: Patient appears in no apparent distress at this time. Patient and/or nj1 family updated on plan of care and expected duration. Pain level reassessed. Patient is alert, oriented x 3, equal unlabored respirations, skin warm/dry/pink. 14:25 Reassessment: Patient appears in no apparent distress at this time. Patient and/or nj1 family updated on plan of care and expected duration. Pain level reassessed. Patient is alert, oriented x 3, equal unlabored respirations, skin warm/dry/pink. Vital Signs: 10:31 BP 155 / 88; Pulse 85; Resp 18; Temp 97.9(O); Pulse Ox 98% on R/A; Pain 8/10; nj1 11:02 BP 149 / 114; nj1 11:07 BP 139 / 87; nj1 11:12 BP 159 / 102; nj1 12:35 BP 159 / 86; Pulse 79; Resp 20; Pulse Ox 99% on R/A; Pain 8/10; nj1 14:25 BP 141 / 88; Pulse 80; Resp 15; Pulse Ox 100% ; Pain 8/10; nj1 10:31 Pain Scale: Adult nj1 12:35 Pain Scale: Adult nj1 14:25 Pain Scale: Adult nj1 ED Course: 10:24 Patient arrived in ED. ra3 10:29 Leyla Perrin PA-C is PHCP. sb4 10:29 Marc Flores MD is Attending Physician. sb4 10:30 Jessi Lepe, VIOLET is Primary Nurse. nj1 10:40 Triage completed. nj1 10:40 Arm band placed on. nj1 10:50 Inserted saline lock: 20 gauge in right antecubital area, using aseptic technique. nj1 Blood collected. Flushed with 10 mL NS. 10:57 Patient has correct armband on for positive identification. Bed in low position. Call nj1 light in reach. Side rails up X 1. Provided Education on: call light, fall precautions. Client placed on continuous cardiac and pulse oximetry monitoring. NIBP monitoring applied. sound mixer on. 10:58 Patient maintains SpO2 saturation greater than 95% on room air. nj1 11:09 XRAY Chest (1 view) In Process Unspecified. EDMS 12:57 Demario Trevizo is Hospitalizing Provider. sb4 14:37 No provider procedures requiring assistance completed. Patient admitted, IV remains in nj1 place. Administered Medications: 10:45 Drug: Aspirin PO 162 mg PO once Route: PO; nj1 11:16 Follow up: Response: No adverse reaction nj1 11:02 Drug: Nitroglycerin Sublingual 0.4 mg Sublingual once; every five minute if needed x3 nj1 Route: Sublingual; 11:07 Drug: Nitroglycerin Sublingual 0.4 mg Sublingual once; every five minute if needed x3 nj1 Route: Sublingual; 11:12 Drug: Nitroglycerin Sublingual 0.4 mg Sublingual once; every five minute if needed x3 nj1 Route: Sublingual; 11:17 Follow up: Response: No adverse reaction; Pain is unchanged, physician notified nj1 12:38 Drug: Ondansetron IVP 4 mg IVP once; over 2 minutes Route: IVP; Site: right antecubital;nj1 12:40 Drug: morphine IVP or IV 4 mg IVP once over 4 mins Route: IVP; Infused Over: 4 mins; nj1 Site: right antecubital; Medication: 14:39 VIS not applicable for this client. nj1 Outcome: 12:57 Decision to Hospitalize by Provider. sb4 14:37 Admitted to Tele accompanied by tech, via wheelchair, room 410, nj1 14:37 Condition: stable 14:37 Instructed on the need for admit, 14:48 Patient left the ED. hb Signatures: Dispatcher [employer] EDAlma Cervantes, RN RN Leyla Hernandez, VAHID REDDING sb4 Jessi Lepe RN RN nj1 April Dugan ra3
--- NOTE | 2024-05-29 13:46 | P.HP ---
Certification for Inpatient Patient admitted to: Observation With expected LOS: <2 Midnights Patient will require the following post-hospital care: None Practitioner: I am a practitioner with admitting privileges, knowledge of patient current condition, hospital course, and medical plan of care. Services: Services provided to patient in accordance with Admission requirements found in Title 42 Section 412.3 of the Code of Federal Regulations Patient History Date of Service: 05/29/24 Reason for admission: Chest pain r/o History of Present Illness: Carrington Dumont is a 48 year old male with Pmhx hypertension, hypothyroidism, CAD with stents placed who presents to the ED with chief complaint of chest pain and pressure intermittently that has lasted for the several months but has gotten worse yesterday. He reports this chest pain and pressure are the same feeling as when he had a stent 4 months ago. Heart score 4 Initial vitals BP 155 / 88; Pulse 85; Resp 18; Temp 97.9(O); Pulse Ox 98% on R/A Preliminary EKG Rate is 83 beats/min. Rhythm is regular, Sinus Rhythm. PA interval is shortened at 106 msec. QRS interval is normal at 84 msec. QT inter sivakumar is normal at 364 msec. No Q waves. T waves are Normal. No ST changes noted. Laboratory evaluation grossly unremarkable with troponin 39.1, BNP 89 Chest x-ray reports The lungs appear clear of acute infiltrate. The heart is mildly enlarged. IMPRESSION: No acute abnormalities displayed Carrington will be admitted to hospitalist service for further evaluation, Cardiology has been consulted. Allergies Penicillins Allergy (Intermediate, Verified 03/10/24 01:47) Hives/Rash Home Medications: Levothyroxine Sodium [Synthroid] 1 tab PO DAILY 02/05/24 Aspirin Chewable [Aspirin Chewable*] 81 mg PO DAILY #30 tab.chew 02/07/24 Metoprolol Tartrate 12.5 mg PO BID #30 tab 02/07/24 lisinopriL [Lisinopril] 10 mg PO 05/29/24 - Past Medical/Surgical History Diabetic: Yes -: DM -: HTN -: HYPOTHYROIDISM -: [place], PCI, 02/10 -: RAMIRO -: PCI - Family History Mother -: Hypertension Father -: Hypertension, Diabetes - Social History Smoking Status: Never smoker Alcohol use: No CD- Drugs: No Caffeine use: Yes Review of Systems Cardiovascular: Chest Pain (and pressure) Physical Examination - Physical Exam General: Alert, In no apparent distress, Oriented x3 HEENT: Atraumatic, Normocephalic, PERRLA Neck: Supple, 2+ carotid pulse no bruit Respiratory: Clear to auscultation bilaterally, Normal air movement Cardiovascular: No edema, Normal pulses, Regular rate/rhythm, Normal S1 S2 Capillary refill: <2 Seconds Gastrointestinal: Normal bowel sounds, Soft and benign, Distended (obese) Musculoskeletal: No clubbing Integumentary: No rashes Neurological: Normal speech, Normal tone - Studies Laboratory Data (last 24 hrs) 05/29/24 05/29/24 05/29/24 10:50 10:50 10:50 WBC 9.30 Hgb 14.9 Hct 44.4 Plt Count 302 PT 11.4 INR 1.02 Sodium 138 Potassium 3.7 BUN 9 Creatinine 0.89 Glucose 120 H Magnesium 2.0 Total Bilirubin 0.4 AST < 10 L ALT 23 Alkaline Phosphatase 82 Assessment and Plan - Plan Assessment and plan Chest pain rule out [place] History of [place] with stent (01/2024) - EKG: No obvious ST segment changes, trend - Serial troponin 39.1/36.6 - Ordered transthoracic echocardiogram - chest x-ray - Consult Cardiology - recommendations appreciated - S/P aspirin 162 mg PO x 1 in ED - Start daily baby aspirin and statin - Symptom control with PRN acetaminophen, nitroglycerin, morphine -continuous telemetry -TSH/FreeT4, A1C, lipid panel pending Diabetes mellitus -Accu-Chek with sliding scale insulin -Serum glucose 120 History of hypertension History of hypothyroidism -Continue home medication DVT ppx SCD Full Code LOS 24 Hr OBS Discharge Plan: Home Plan to discharge in: 24 Hours - Advance Directives Does patient have a Living Will: No Does patient have a Durable POA for Healthcare: No
[2024-05-29] MEDS ORDERED: HYDRALAZINE HCL 20 MG/ML VIAL IV PRN (14:04)
[2024-05-29] MEDS ORDERED: NITROGLYCERIN 0.4 MG/TAB SL PRN (14:04)
[2024-05-29 15:27] VITALS: BMI 35.7
[2024-05-29] MEDS: MORPHINE 2 MG/ML SYR IV PRN (16:38)
[2024-05-29] MEDS ORDERED: POTASSIUM CL SA 10 MEQ TAB PO ONE (18:00)
[2024-05-29] MEDS: ATORVASTATIN 40 MG TAB PO SCH (20:03)
[2024-05-30 06:07] LABS: Absolute Basophils 0.1 K/uL (0-0.5); Absolute Eosinophils 0.2 K/uL (0-0.5); Absolute Lymphocytes (CBC) 2.3 K/uL (0.7-4.9); Absolute Monocytes 0.5 K/uL (0.1-1.3); Absolute Neutrophil 4.5 K/uL (1.8-8.0); Basophils % 0.9 % (0-1.3); Eosinophils % 2.3 % (0-4.4); Hematocrit 41.6 % (39.6-49.0); Hemoglobin 14.1 g/dL (13.6-17.9); Lymphocytes % 30.7 % (15.3-44.8); MCH 31.2 pg (27.0-35.0); MCHC 33.9 g/dL (32.0-36.0); MCV 92.2 fL (80-100); MPV 7.3 fL (7.6-11.3); Monocytes % 6.3 % (3.3-12.3); Neutrophils % 59.8 % (41.7-73.7); Nucleated Red Blood Cells % 0.1 % (0-0); Platelets 289 thou/uL (152-406); RBC Red Blood Cell Count 4.51 M/uL (4.33-5.43); Red Cell Distribution Width 14.1 % (12.1-15.2)
[2024-05-30 06:28] LABS: Anion Gap 7.2 mEq/L (5.0-15.0); Magnesium 1.9 mg/dL (1.6-2.4); Phosphorus 3.4 mg/dL (2.5-4.9); Potassium 4.2 mEq/L (3.5-5.1)
[2024-05-30 06:29] LABS: Thyroid Stimulating Hormone 10.3 uIU/mL (0.358-3.740)
[2024-05-30] MEDS: ASPIRIN EC 81 MG TAB PO SCH (08:16)
[2024-05-30] MEDS: NITROGLYCERIN 0.2 MG/HR (5 MG) PATCH TD SCH (08:16)
[2024-05-30 09:17] LABS: Specific Gravity 1.023 (1.005-1.030); Sqamous Epithelial None Seen /HPF (None Seen); Urine Bacteria None Seen /HPF (<20); Urine Bilirubin NEGATIVE (Negative); Urine Blood Negative (Negative); Urine Clarity Extremely Turbid (Clear); Urine Color Yellow (Yellow); Urine Culture Reflex Order NOT NEEDED; Urine Glucose NEGATIVE (Negative); Urine Ketones NEGATIVE (Negative); Urine Microscopic Reflex YN ORDER UMIC; Urine Mucus Slight /HPF (None Seen); Urine Nitrite NEGATIVE (Negative); Urine Protein NEGATIVE (Negative); Urine RBC <5 /HPF (None Seen); Urine Urobilinogen Normal (Normal); Urine WBC <5 /HPF (<5)
[2024-05-30] MEDS: ACETAMINOPHEN 500 MG TAB PO PRN (22:12)
[2024-05-30 22:50] LABS: Barbiturates NEGATIVE (NEGATIVE); Benzodiazepines NEGATIVE (NEGATIVE); Cocaine NEGATIVE (NEGATIVE); METHAMPHETAM NEGATIVE (NEGATIVE); Methadone NEGATIVE (NEGATIVE); Opiates POSITIVE (NEGATIVE); Phencyclidine NEGATIVE (NEGATIVE); THC Cannibis NEGATIVE (NEGATIVE)
[2024-05-31 04:44] VITALS: O2SAT 98
[2024-05-31 05:52] LABS: Absolute Basophils 0.1 K/uL (0-0.5); Absolute Eosinophils 0.2 K/uL (0-0.5); Absolute Lymphocytes (CBC) 2.9 K/uL (0.7-4.9); Absolute Monocytes 0.7 K/uL (0.1-1.3); Absolute Neutrophil 6.6 K/uL (1.8-8.0); Eosinophils % 1.9 % (0-4.4); Hematocrit 42.7 % (39.6-49.0); Hemoglobin 14.6 g/dL (13.6-17.9); Lymphocytes % 27.4 % (15.3-44.8); MCH 31.4 pg (27.0-35.0); MCHC 34.2 g/dL (32.0-36.0); MCV 91.9 fL (80-100); MPV 7.7 fL (7.6-11.3); Monocytes % 6.6 % (3.3-12.3); Neutrophils % 63.1 % (41.7-73.7); Nucleated Red Blood Cells % 0.1 % (0-0); Platelets 260 thou/uL (152-406); RBC Red Blood Cell Count 4.65 M/uL (4.33-5.43)
[2024-05-31 06:12] LABS: Phosphorus 3.5 mg/dL (2.5-4.9)
[2024-05-31] MEDS ORDERED: REGADENOSON 0.4 MG/5 ML SYR IV ONE (10:30)
--- NOTE | 2024-05-31 12:36 | RAD REPORT ---
EXAM DESCRIPTION: NM - Rest Stress Cardiac Imaging - 05/31/2024 11:10 am CLINICAL HISTORY: Chest pain. COMPARISON: February 2024 TECHNIQUE: The patient was administered 10. 4mCi of Tc 99m Sestamibi prior to resting SPECT imaging of the heart. The patient was then administered 29.6 mCi of Tc 99m Sestamibi following exercise or p harmacologic stress. Multiplanar SPECT images were reviewed. FINDINGS: There is uniformity of radiotracer uptake involving the entire left ventricular myocardiu m on rest and stress images. The left ventricular ejection fraction equals 59% IMPRESSION: Negative for a myocardial perfusion defect
--- NOTE | 2024-05-31 13:51 | EKG ---
Test Date: 2024-05-29 Test Time: 10:36:45 Special Procedures Technologist: KERRI MEASUREMENT RESULTS: Intervals: Rate: 83 NH: 106 QRSD: 84 QT: 364 QTc: 427 [place]: P: 48 NH: 106 QRS: 66 T: 70 INTERPRETIVE STATEMENTS: Sinus rhythm with short NH Otherwise normal ECG Compared to ECG 03/09/2024 22:50:14 Short NH interval now present Electronically Signed On 05-31-24 13:46:39 CDT by Luc Khan
--- NOTE | 2024-05-31 13:54 | TREADPHA ---
DX: CHEST PAIN Date of Study: 05/31/2024 Ht: 5' 8 " Wt: 235 lb 0 oz Consulting Physician: JULIO CESAR MEDICATIONS: ASPIRIN, LIPITOR, APRESOLINE, NITROSTAT HISTORY: 48 YEAR OLD FEMALE WITH COMPLAINTS OF CHEST PAIN. HISTORY OF PRE-DIABETES, THYROID HISTORY AND HYPERLIPIDEMIA PHYSICIAL EXAMINATION: RESTING B.P.: 121/95 RESTING H.R.: 85 RESTING EKG: SINUS RHYTHM PROTOCOL: PHARMACOLOGIC EXERCISE TIME: 3:30 B.P. AT [place]AK STRESS: 125/58 IMPRESSION: LEXISCAN STRESS TEST PERFORMED ORDERED. CARDIOLITE INJECTED PER PROTOCOL (SEE NUCLEAR MEDICINE REPORT). PATIENT STATES EXPERIENCE CHEST PAIN/ DISCOMFORT THROUGHOUT PROCEDURE. PATIENT ACTIVLY TALKING. NO ARRHYTHMIA. NO SUPRAVENTRICULAR TACHYCARDIA, VENTRICULAR TACHYCARDIA NOTED.
--- NOTE | 2024-05-31 13:55 | P.DS ---
Admission Date: 05/30/24 Discharge Date: 05/31/24 Disposition: ROUTINE DISCHARGE Discharge Condition: GOOD Reason for Admission: Chest pain r/o Brief History of Present Illness: Diagnosis Chest pain rule out [place] History of [place] with stent (01/2024) Diabetes mellitus History of hypertension History of hypothyroidism HPI 05/29/24 Carrington Dumont is a 48 year old male with Pmhx hypertension, hypothyroidism, CAD wi th stents placed who presents to the ED with chief complaint of chest pain and pressure intermittently that has lasted for the several months but has gotten worse yesterday. He reports this chest pain and pressure are the same feeling as when he had a stent 4 months ago. Heart score 4 Initial vitals BP 155 / 88; Pulse 85; Resp 18; Temp 97.9(O); Pulse Ox 98% on R/A Preliminary EKG Rate is 83 beats/min. Rhythm is regular, Sinus Rhythm. MI interval is shortened at 106 msec. QRS interval is normal at 84 msec. QT interval is normal at 364 msec. No Q waves. T waves are Normal. No ST changes noted. Laboratory evaluation grossly unremarkable with troponin 39.1, BNP 89 Chest x-ray reports The lungs appear clear of acute infiltrate. The heart is mildly enlarged. IMPRESSION: No acute abnormalities displayed Carrington will be admitted to hospitalist service for further evaluation, Cardiology has been consulted. Hospital Course: Carrington Dumont is a pleasant 48 year old male with a past medical history significant for hypertension, hypothyroidism, CAD with stents who was admitted to the [facility] on 05/29/24 for Chest pain r/o ACS. Carrington presented with severe intermittent chest pain. With a history of CAD with a stent placed in January he was admitted for further evaluation. Troponins trended flat, both EKG negative for ST changes. He reported that morphine and nitroglycerin did not help his pain. Cardiology recommended a stress test which resulted negative for ischemic changes. This morning he reports his chest pain has relieved, he is hemodynamically stable, and cardiology has cleared him for discharge. He will need to follow up with cardiology after discharge. On 05/31/24, Carrington was seen on morning rounds and deemed medically stable for discharge. Carrington was discharged with instructions to schedule follow-up appointments with Dr. Franks and PCP. Carrington will need to continue his current medications as prescribed by the outside provider. Physical Exam General: Alert and Oriented x3, NAD HEENT: Atraumatic, Normocephalic, PERRLA Neck: Supple, 2+ carotid pulse no bruit Respiratory: Clear to auscultation bilaterally, nonlabored, RA Cardiovascular: No edema, Normal pulses, RRR, Normal S1 S2 Capillary refill: <2 Seconds Gastrointestinal: Normal active bowel sounds, Soft and benign on palpation, Distended (obese) Musculoskeletal: No clubbing Integumentary: No rashes Neurological: Normal speech, Normal tone Vital Signs/Physical Exam: Temp Pulse Resp BP Pulse Ox 97.1 F 83 14 181/98 H 98 05/31/24 08:00 05/31/24 11:13 05/31/24 08:00 05/31/24 11:13 05/31/24 08:00 Laboratory Data at Discharge: WBC 10.50 thou/uL (4.3-10.9) 05/31/24 05:32 Hgb 14.6 g/dL (13.6-17.9) 05/31/24 05:32 Hct 42.7 % (39.6-49.0) 05/31/24 05:32 Plt Count 260 thou/uL (152-406) 05/31/24 05:32 PT 11.4 SECONDS (9.4-12.5) 05/29/24 10:50 INR 1.02 05/29/24 10:50 Sodium 137 mEq/L (136-145) 05/31/24 05:32 Potassium 4.0 mEq/L (3.5-5.1) 05/31/24 05:32 BUN 14 mg/dL (7-18) 05/31/24 05:32 Creatinine 0.76 mg/dL (0.70-1.30) 05/31/24 05:32 Glucose 107 mg/dL (74-106) H 05/31/24 05:32 Phosphorus 3.5 mg/dL (2.5-4.9) 05/31/24 05:32 Magnesium 2.0 mg/dL (1.6-2.4) 05/31/24 05:32 Total Bilirubin 0.4 mg/dL (0.2-1.0) 05/29/24 10:50 AST < 10 U/L (15-37) L 05/29/24 10:50 ALT 23 U/L (16-61) 05/29/24 10:50 Alkaline Phosphatase 82 U/L (45-117) 05/29/24 10:50 Triglycerides 178 mg/dL (<150) H 05/30/24 05:48 Cholesterol 181 mg/dL (<200) 05/30/24 05:48 HDL Cholesterol 39 mg/dL (40-60) L 05/30/24 05:48 Cholesterol/HDL Ratio 4.64 05/30/24 05:48 Home Medications: Levothyroxine Sodium [Synthroid] 1 tab PO DAILY 02/05/24 Aspirin Chewable [Aspirin Chewable*] 81 mg PO DAILY #30 tab.chew 02/07/24 Metoprolol Tartrate 12.5 mg PO BID #30 tab 02/07/24 Atorvastatin Calcium [Lipitor] 40 mg PO BEDTIME 05/30/24 Clopidogrel Bisulfate [Plavix] 75 mg PO DAILY 05/30/24 Physician Discharge Instructions: Carrington Dumont was evaluated for chest pain, Stress test today 05/31 was negative for ischemic changes. Please continue taking your medicatinos as prescribed by cardiology, such as aspirin, lipitor, plavix, and metoprolol. Please follow up with Cardiology, Dr. Franks. Please return to the ED if symptoms worsen 1. Please call and schedule a follow-up appointment with your PCP in 3-5 days - Please follow-up with your PCP for medication refills/adjustments 2. Please call and schedule a follow-up appointment with Dr. Franks in one week 3. Continue heart healthy diet 4. No activity restrictions 5. Return to the ED if symptoms worsen Diet: AHA Activity: Ad mono Followup: NONE,NONE [Primary Care Provider] -
[2024-05-31 14:07] VITALS: BP 151/90; TEMP 97.9
--- NOTE | 2024-05-31 20:16 | P.PN ---
Date of Service: 05/30/24 Subjective Awake and continues to complain of intermittent severe chest pain Stress test tomorrow per Dr. Khan Troponin neg and second EKG negative ROS 10 point ROS as noted above, otherwise negative Physical Exam General: Alert and Oriented x3, NAD HEENT: Atraumatic, Normocephalic, PERRLA Neck: Supple, 2+ carotid pulse no bruit Respiratory: Clear to auscultation bilaterally, Normal air movement, RA Cardiovascular: No edema, Normal pulses, RRR, Normal S1 S2 Capillary refill: <2 Seconds Gastrointestinal: Normal bowel sounds, Soft and benign on palpation, Distended (obese) Musculoskeletal: No clubbing Integumentary: No rashes Neurological: Normal speech, Normal tone Vitals Reviewed Problem list Chest pain rule out [place] History of [place] with stent (01/2024) Diabetes mellitus History of hypertension History of hypothyroidism Assessment and Plan Chest pain rule out [place] History of [place] with stent (01/2024) - EKG: No obvious ST segment changes - Serial troponin 39.1/36.6/38.3 - Ordered transthoracic echocardiogram - chest x-ray - Consult Cardiology - recommendations appreciated - S/P aspirin 162 mg PO x 1 in ED - Start daily baby aspirin and statin - Symptom control with PRN acetaminophen, nitroglycerin, morphine - continuous telemetry -TSH/FreeT4 10.3/0.92, A1C 5.5, lipid panel Trigl. 178, cholesterol 181, LDL 39, HDL 4.64 - Follow up with PCP Diabetes mellitus -Accu-Chek with sliding scale insulin -Serum glucose 105 History of hypertension History of hypothyroidism -Continue home medication DVT ppx SCD Full Code LOS 24 Hr OBS Discharge Plan: Home Plan to discharge in: 24 Hours
--- NOTE | 2024-06-02 16:33 | EKG ---
Test Date: 2024-05-29 Test Time: 16:58:32 Edger Tailer: LYNN MEASUREMENT RESULTS: Intervals: Rate: 70 [place]: 92 QRSD: 88 QT: 410 QTc: 442 [place]: P: 56 [place]: 92 QRS: 52 T: 38 INTERPRETIVE STATEMENTS: Sinus rhythm with short [place] Nonspecific ST and T wave abnormality Abnormal ECG Compared to ECG 05/29/2024 10:36:45 ST (T wave) deviation now present Electronically Signed On 06-02-24 16:30:43 CDT by Luc Khan
== END 2024-05-31 15:41 | disposition home or self-care (01) | DRG 282 ==
LOC: ER 10:22 → ERHOLD 14:04 → 4TH 14:48 → OBSVTOIN 05-30 16:34
PROVIDERS: ADMIT Internal Medicine; ATTEND Internal Medicine
DX: I21.9 Acute myocardial infarction, unspecified (principal); E03.9 Hypothyroidism, unspecified; E11.9 Type 2 diabetes mellitus without complications; I10 Essential (primary) hypertension; I25.10 Atherosclerotic heart disease of native coronary artery without angina pectoris; I25.2 Old myocardial infarction; Z95.5 Presence of coronary angioplasty implant and graft
CPT/HCPCS: 36415; 71045; 78452; 80048; 80061; 80076; 80307; 81001; 83036; 83735; 83880; 84100; 84439; 84443; 84484; 85025; 85610; 87811; 93005; 93017; 96374; 96375; 99285; A9500; G0378; J2270; J2405; J2785

== ENCOUNTER 2024-09-20 18:15 | Inpatient (IN) | payer SELFPAY ==
--- OUTSIDE RECORDS SUMMARY | 2024-09-20 18:23 | XMS REPORT | Continuity of Care Document ---
Author Name Unknown Address [address] [facility]. [address] [place] [address] [facility] Address [address] [facility] [address] [place] [address] Care Team Providers Care Advertising Dispatch Clerk Name Role Phone PCP, PATIENT DOES NOT HAVE A Primary Care Physic bala Unavailable Doctor Unassigned, Mary Esther Attending Clinician U BABS Cohen Attending Clinician Unavailable CHAPITO CONTRERAS Attending Clinician Unavailable CHAPITO CONTRERAS Attending Clinician Unavailable Nidia SOLANO Attending Clinician Unavailable Nidia SOLANO Attending Clinician Unavailable JOSE FRANCISCO WALTERS Attending Clinician Unavailable Jose Francisco Walters MD Attending Clinician [phone] MADELINE TAM Attending Clinician Unavailable MADELINE TAM Attending Clinician Unavailable Madeline Tam DO Attending Clinician [phone] Patrick Garrett Attending Clinician [phone] PATRICK VERGARA Attending Clinician Unavailable MONROE ESCOBAR Attending Clinician Unavailable MONROE ESCOBAR Attending Clinician Unavailable MARIE MORALES Attending Clinician Unavailab Marie Cespedes DO Attending Clinician [phone] LALA CLARKE Attending Clinician Unavailable Lala Clarke DO Attending Clinician [phone] BENJAMIN ASHFORD Attending Clinician Unavailable Benjamin Ashford MD Attending Clinician [phone] Geoff Cardona MD Attending Clinician [phone] GEOFF CARDONA Attending Clinician Unavailable Kiki Mathur MD Attending Clinician [phone] KIKI MATHUR Attending Clinician UnavailGricelda Sherman MD Attending Clinician [phone] MARIBELL CEDILLO Attending Clinician UnavailBABS Garza Admitting Clinician Unavailable JOSE FRANCISCO WALTERS Admitting Clinician Unavailable CHAPITO CONTRERAS Admitting Clinician Unavailable MADELINE TAM Admitting Clinician Unavailable PATRICK VERGARA Admitting Clinician Unavailable Nidia SOLANO Admitting Clinician Unavailable MARIE MORALES Admitting Clinician UnavailGricelda Morales MD Admitting Clinician [phone] EMERGENCY ROOM, EMERGENCY Admitting Clinician Un available Payers Payer Name Policy Type Policy Number Effective Date Expirati on Date Source [facility] [id number] 2023 00:00:00 Problems Condition Name Condition Details Condition Category Status Onset Date Resolution Date Last Treatment Date Treating Clinician Comments Source Obesity (BMI 30-39.9) Obesity (BMI 30-39.9) Disease Active 05-08 00:00: 00 [facility] Cigarette nicotine dependence without complicati on Cigarette nicotine dependence without complicati on Disease Active 2019-10 00:00: 00 [facility] Atypical chest pain Atypical chest pain Disease Active 2019-10 00:00: 00 [facility] Essential hypertensi on Essential hypertensi on Disease Active 2019-10 00:00: 00 [facility] No known active problems No known active problems Disease [facility] Allergies, Adverse Reactions, Alerts Allergy Name Allergy Type Status Severity Reaction(s) Onset Date Inactive Date Treating Clinician Comments Source Penicill in Propensi ty to adverse reaction s Active Unknown - See comments 03-30 00:00: 00 [facility] PENICILL IN DRUG INGREDI Active Unknown-Cmnt 03-30 00:00: 00 [facility] NO KNOWN ALLERGIE S Drug Class Active [facility] Social History Social Habit Start Date Stop Date Quantity Comments Source History of tobacco use Cigarette Smoker [facility] History SDOH Alcohol Frequency [facility] History SDOH Alcohol Std Drinks [facility] History SDOH Alcohol Binge [facility] Alcoholic beverage intake 2024-02-04 00:00:00 2024-02-04 00:00:00 Current drinker of alcohol (finding) [facility] Alcohol intake 2024-02-04 00:00:00 2024-02-04 00:00:00 Current drinker of alcohol (finding) [facility] Exposure to SARS-CoV-2 (event) 2023-02-10 00:00:00 2023-02-20 18:06:00 Not sure [facility] Cigarettes smoked current (pack per day) - Reported 2021-05-08 00:00:00 2021-05-08 00:00:00 [facility] Alcohol Comment 2021-05-08 00:00:00 2021-05-08 00:00:00 6beers on the weekend [facility] Tobacco use and exposure 2021-05-08 00:00:00 2021-05-08 00:00:00 Smokeless tobacco non-user [facility] History of Social function 2020-08-29 00:00:00 2020-08-29 00:00:00 [facility] Sex assigned at 1975 00:00:00 1975 00:00:00 [facility] Smoking Status Start Date Stop Date Source Smokes tobacco daily 2021-05-08 00:00:00 [facility] Never smoker [facility] if ever smoked [facility] Medications Ordered Medication Name Filled Medication Name Start Date Stop Date Current Medication? Ordering Clinician Indication Dosage Frequency Signature (SIG) Comments Components Source iopamidol (ISOVUE 370-500 mL) injection 85 mL 02-03 18:00: 00 02-03 18:00 :00 No [id number] 85mL 85 mL, Intravenou s, ONCE, 1 dose, On Fri02/04/24 at 1300, Routine [facility] morpHINE (2 mg/mL) injection 2 mg 02-03 17:45: 00 02-03 18:48 :00 No 2mg 2 mg, Slow IV Push, ONCE, 1 dose, On Fri02/04/24 at 1245, STAT [facility] ondansetron (ZOFRAN (PF)) injection 4 mg 02-03 16:30: 00 02-03 17:15 :00 No 4mg 4 mg, Slow IV Push, ONCE, 1 dose, On Fri02/04/24 at 1130, [facility]WN [facility] ketorolac (TORADOL) injection 15 mg 02-03 16:30: 00 02-03 17:16 :00 No 15mg 15 mg, Slow IV Push, ONCE, 1 dose, On Fri02/04/24 at 1130[facility] sodium [facility] (NS[facility] 5 mL 02-03 15:28: 49 Yes 5mL 5 mL, Intravenou s, PRN, Starting on Fri02/04/24 at 1028, Until Discontinu ed, Routine, IV line flushing [facility] dicyclomine (BENTYL) injection 20 mg 12-27 09:15: 00 Yes 20mg 20 mg, Intramuscu lar, QID, First dose on Fri12/28/23 at 0415, Until Discontinu ed, Routine [facility] maalox:diph enhydrAMINE :lidocaine 2 % viscous 1:1:1 (FIRST-MOUT HWASH BLM) oral suspension 15 mL 12-27 08:30: 00 12-27 08:27 :00 No 15mL 15 mL, Oral, ONCE, 1 dose, On Fri12/28/23 at 0330, Routine [facility] maalox:diph enhydrAMINE :lidocaine 2 % viscous 1:1:1 (FIRST-MOUT HWASH BLM) oral suspension 15 mL 11-06 07:15: 00 11-06 07:38 :00 No 15mL 15 mL, Oral, ONCE, 1 dose, On 11/06/24 at 0115, Routine [facility] famotidine (PEPCID (PF)) injection 20 mg 11-06 07:15: 00 11-06 07:38 :00 No 20mg 20 mg, Slow IV Push, ONCE, 1 dose, On Ale 24 at 0115, FAWN [facility] NaCl 0.9% (NS) bolus infusion 1,000 mL 11-06 07:15: 00 11-06 07:38 :00 No 1000mL at 999 mL/hr, 1,000 mL, IV Infusion, ONCE, 1 dose, On [place] 11/06/23 at 0115, STAT [facility] ondansetron (ZOFRAN (PF)) injection 4 mg 11-06 07:15: 00 11-06 06:19 :00 No 4mg 4 mg, Slow IV Push, ONCE, 1 dose, On [place] 11/06/23 at 0115, [facility] dicycl[facility] (BENTYL) injection 20 mg 11-06 07:00: 00 11-06 07:00 :00 No 20mg 20 mg, Intramuscu lar, ONCE, 1 dose, On [place] 11/06/23 at 0100, Routine [facility] dicyclomine 20 mg tablet 11-06 00:00: 00 Yes 20mg Take 1 tablet by mouth 4 (four) times daily. Indication s: abdominal pain [facility] famotidine (PEPCID) 40 mg tablet 11-06 00:00: 00 Yes [id number] 40mg Take 1 tablet by mouth daily. [facility] acetaminoph en (TYLENOL) tablet 650 mg 11-01 09:30: 00 11-01 09:30 :00 No 650mg 650 mg, Oral, ONCE, 1 dose, On 11/01/23 at 0330, [facility] iop[facility] (ISOVUE 370-500 mL) injection 100 mL 11-01 09:30: 00 11-01 09:30 :00 No [id number] 100mL 100 mL, Intravenou s, ONCE, 1 dose, On 11/01/23 at 0330, Routine [facility] morpHINE (4 mg/mL) injection 4 mg 11-01 07:00: 00 11-01 06:56 :00 No 4mg 4 mg, Slow IV Push, ONCE, 1 dose, On 11/01/23 at 0100, STAT [facility] ketorolac (TORADOL) injection 30 mg 11-01 06:45: 00 11-01 06:00 :00 No 30mg 30 mg, Slow IV Push, ONCE, 1 dose, On 11/01/23 at 0045, FAWN [facility] NaCl 0.9% (NS) bolus infusion 1,000 mL 11-01 06:45: 00 11-01 07:59 :00 No 1000mL at 999 mL/hr, 1,000 mL, IV Piggyback, ONCE, 1 dose, On 11/01/23 at 0045, STAT [facility] ondansetron (ZOFRAN (PF)) injection 4 mg 11-01 06:00: 00 11-01 05:59 :00 No 4mg 4 mg, Slow IV Push, ONCE, 1 dose, On 11/01/23 at 0000, FAWN [facility] morpHINE (4 mg/mL) injection 4 mg 11-01 06:00: 00 11-01 06:00 :00 No 4mg 4 mg, Slow IV Push, ONCE, 1 dose, On 11/01/23 at 0000, STAT [facility] famotidine (PEPCID) 20 mg tablet 11-01 00:00: 00 Yes [id number] 20mg Take 1 tablet by mouth 2 (two) times daily. [facility] dicyclomine 20 mg tablet 11-01 00:00: 00 Yes [id number] 20mg Take 1 tablet by mouth 3 (three) times daily as needed for Abdominal pain. [facility] iopamidol (ISOVUE 370-500 mL) injection 100 mL 10-23 08:00: 00 10-23 08:00 :00 No [id number] 100mL 100 mL, Intravenou s, ONCE, 1 dose, On Ale 10/23/23 at 0200, Routine [facility] FENTanyl PF (SUBLIMAZE (PF)) injection 50 mcg 10-23 08:00: 00 10-23 07:01 :00 No 50ug 50 mcg, Slow IV Push, ONCE, 1 dose, On Ale 10/23/23 at 0200, Routine [facility] ketorolac (TORADOL) injection 30 mg 10-23 07:15: 00 10-23 06:08 :00 No 30mg 30 mg, Slow IV Push, ONCE, 1 dose, On Ale 10/23/23 at 0115, Routine [facility] ondansetron (ZOFRAN (PF)) injection 4 mg 10-23 06:15: 00 10-23 06:08 :00 No 4mg 4 mg, Slow IV Push, ONCE, 1 dose, On Ale 10/23/23 at 0015, FAWN [facility] ketorolac 10 mg tablet 10-23 00:00: 00 Yes [id number] 10mg Take 1 tablet by mouth every 6 (six) hours as needed for Pain (scale 7-10). [facility] iopamidol (ISOVUE 370-500 mL) injection 100 mL 2022-10 07:15: 00 09-26 07:15 :00 No [id number] 100mL 100 mL, Intravenou s, ONCE, 1 dose, On Fri09/26/23 at 0115, Routine [facility] ketorolac (TORADOL) injection 30 mg 2022-10 07:00: 00 09-26 06:12 :00 No 30mg 30 mg, Slow IV Push, ONCE, 1 dose, On Fri09/26/23 at 0100, Routine [facility] NaCl 0.9% (NS) bolus infusion 1,000 mL 2022-10 06:00: 00 09-26 06:15 :00 No 1000mL at 999 mL/hr, 1,000 mL, IV Infusion, ONCE, 1 dose, On Fri09/26/23 at 0000, General acute hospital morpHINE (4 mg/mL) injection 4 mg 2022-10 05:30: 00 09-26 05:19 :00 No 4mg 4 mg, Slow IV Push, ONCE, 1 dose, On Ale 09/25/23 at 2330, STAT [facility] lactulose (CEPHULAC) solution 60 mL 2022-10 05:15: 00 09-26 05:13 :00 No 60mL 60 mL, Oral, ONCE, 1 dose, On Ale 09/25/23 at 2315, General acute hospital ondansetron (ZOFRAN (PF)) injection 4 mg 2022-10 05:15: 00 09-26 05:13 :00 No 4mg 4 mg, Slow IV Push, ONCE, 1 dose, On Ale 09/25/23 at 2315, General acute hospital SEMAGLUTIDE , WEIGHT LOSS, SC 2022-10 02:30: 30 Yes inject under the skin. [facility] iopamidol (ISOVUE 370-500 mL) injection 75 mL 2022-10 09:00: 00 08-24 09:00 :00 No [id number] 75mL 75 mL, Intravenou s, ONCE, 1 dose, On Fri08/24/23 at 0300, Routine [facility] ondansetron (ZOFRAN (PF)) injection 4 mg 2022-10 06:30: 00 08-24 08:15 :00 No 4mg 4 mg, Slow IV Push, ONCE, 1 dose, On Fri08/24/23 at 0130, General acute hospital morpHINE (4 mg/mL) injection 4 mg 2022-10 06:30: 00 08-24 08:14 :00 No 4mg 4 mg, Slow IV Push, ONCE, 1 dose, On Fri08/24/23 at 0130, STAT [facility] aspirin tablet 325 mg 2022-10 05:15: 00 08-24 05:18 :00 No 325mg 325 mg, Oral, ONCE, 1 dose, On Fri08/24/23 at 0015, STAT [facility] ketorolac (TORADOL) injection 30 mg 07-07 10:45: 00 07-07 09:53 :00 No 30mg 30 mg, Slow IV Push, ONCE, 1 dose, On Fri07/07/23 at 0545, Routine [facility] metoclopram glenroy HCl (REGLAN) injection 10 mg 07-07 09:45: 00 07-07 09:54 :00 No 10mg 10 mg, Slow IV Push, ONCE, 1 dose, On Fri07/07/23 at 0445, General acute hospital butalbital- acetaminoph en-caff 50-325-40 mg tablet 07-07 00:00: 00 Yes [id number] 1{tbl} Take 1 tablet by mouth every 6 (six) hours as needed (Headache) . [facility] metFORMIN (GLUCOPHAGE ) tablet 500 mg 05-26 13:00: 00 Yes 500mg 500 mg, Oral, BID MEALS, First dose on Fri05/26/23 at 0800, Until Discontinu ed, Routine [facility] ketorolac (TORADOL) injection 15 mg 05-26 03:00: 00 05-26 02:19 :00 No 15mg 15 mg, Slow IV Push, ONCE, 1 dose, On Fri05/25/23 at 2200, General acute hospital nitroglycer in (NITROL) 2 % ointment 0.5 Inch 05-25 23:30: 00 05-26 01:27 :00 No .5[in_u s] 0.5 Inch, Transderma l (Apply To Skin), ONCE, 1 dose, On Fri05/25/23 at 1830, [facility] maalox:diph enhydrAMINE :lidocaine 2 % viscous 1:1:1 ([facility]) oral suspension 15 mL 05-25 23:30: 00 05-26 00:49 :00 No 15mL 15 mL, Oral (Swish & Swallow), ONCE, 1 dose, On [place] 05/25/23 at 1830, Routine [facility] aspirin chewable tablet 324 mg 05-25 23:30: 00 05-25 22:24 :00 No 324mg 324 mg, Oral, ONCE, 1 dose, On [place] 05/25/23 at 1830, Routine [facility] metFORMIN 500 mg tablet 05-25 00:00: 00 Yes [id number] 500mg Take 1 tablet by mouth 2 (two) times daily. [facility] naproxen (NAPROSYN) 500 mg tablet 05-25 00:00: 00 02-03 00:00 :00 No [id number] 500mg Take 1 tablet by mouth 2 (two) times daily with meals. [facility] cloNIDine (CATAPRES) tablet 0.2 mg 02-21 00:45: 00 02-21 01:50 :00 No .2mg 0.2 mg, Oral, ONCE, 1 dose, On [facility] 02/20/23 at 1945, FAWN [facility] ibuprofen (IBU) tablet 600 mg 02-20 23:30: 00 02-20 23:30 :00 No 600mg 600 mg, Oral, ONCE, 1 dose, On [facility] 02/20/23 at 1830, FAWN [facility] ibuprofen 600 mg tablet 02-20 00:00: 00 02-03 00:00 :00 No [id number] 600mg Take 1 tablet by mouth every 6 (six) hours as needed for Pain (scale 4-6) for up to 30 doses. [facility] iopamidol (ISOVUE 370-500 mL) injection 100 mL 3-12 09:15: 00 12-29 09:15 :00 No [id number] 100mL 100 mL, Intravenou s, ONCE, 1 dose, On 12/29/22 at 0415, Routine [facility] ketorolac (TORADOL) injection 30 mg 12-29 09:00: 00 12-29 07:53 :00 No 30mg 30 mg, Slow IV Push, ONCE, 1 dose, On 12/29/22 at 0400, Routine [facility] ondansetron (ZOFRAN) 4 mg tablet 12-29 00:00: 00 Yes [id number] 4mg Take 1 tablet by mouth every 8 (eight) hours as needed for Nausea and Vomiting (N/V). [facility] tablet 12-29 00:00: 00 Yes [id number] 10mg Take 1 tablet by mouth every 6 (six) hours as needed for Pain (scale 7-10). [facility] maalox:diph enhydrAMINE :lidocaine 2 % viscous 1:1:1 (FIRST-MOUT HWASH BLM) oral suspension 15 mL 11-21 08:45: 00 11-21 08:36 :00 No 15mL 15 mL, Oral, ONCE, 1 dose, On Ale 11/21/22 at 0245, Routine [facility] metoclopram glenroy HCl (REGLAN) tablet 10 mg 06-02 12:30: 00 Yes 10mg 10 mg, Oral, AC, First dose on 06/02/22 at 0730, Until Discontinu ed, Routine [facility] dexamethaso ne (DECADRON PHOSPHATE) injection 10 mg 06-02 06:00: 00 06-02 04:55 :00 No 10mg 10 mg, Oral, ONCE, 1 dose, On 06/02/22 at 0100, Routine [facility] butalbital- acetaminoph en-caff (ESGIC) 50-325-40 mg tablet 1 tablet 06-02 05:00: 00 06-02 04:56 :00 No 1{tbl} 1 tablet, Oral, ONCE, 1 dose, On 06/02/22 at 0000, FAWN [facility] diphenhydrA MINE (BENADRYL) tablet 50 mg 06-02 05:00: 00 06-02 04:54 :00 No 50mg 50 mg, Oral, ONCE, 1 dose, On Fri06/02/22 at 0000, FAWN [facility] levothyroxi ne (SYNTHROID) tablet 100 mcg 05-29 11:00: 00 Yes 100ug 100 mcg, Oral, QAM-0600, First dose on Fri05/29/22 at 0600, Until Discontinu ed, Routine [facility] levothyroxi ne 200 mcg tablet 05-28 13:18: 02 05-28 00:00 :00 No 300ug Take 300 mcg by mouth every morning. [facility] levothyroxi ne 300 mcg tablet 05-28 00:00: 00 08-27 05:59 :00 No [id number] 300ug Take 1 tablet by mouth every morning for 90 days. [facility] ketorolac (TORADOL) injection 15 mg 05-06 06:30: 00 05-06 05:30 :00 No 15mg 15 mg, Slow IV Push, ONCE, 1 dose, On Fri05/06/22 at 0130, FAWN [facility] iopamidol (ISOVUE 370-500 mL) injection 65 mL 05-06 06:00: 00 05-06 06:15 :00 No [id number] 65mL 65 mL, Intravenou s, ONCE, 1 dose, On Fri05/06/22 at 0115, Routine [facility] benzonatate 200 mg capsule 05-06 00:00: 00 Yes [id number] 200mg Take 1 capsule by mouth 3 (three) times daily as needed for Cough for up to 20 doses. [facility] ondansetron 4 mg disintegrat ing tablet 05-06 00:00: 00 Yes [id number] 4mg Take 1 tablet by mouth every 8 (eight) hours as needed for Nausea and Vomiting (N/V). [facility] ibuprofen 600 mg tablet 05-06 00:00: 00 02-20 00:00 :00 No [id number] 600mg Take 1 tablet by mouth every 6 (six) hours as needed for Pain (scale 4-6). [facility] molnupiravi r 200 mg capsule 05-06 00:00: 00 05-12 04:59 :00 No [id number] 800mg Take 4 capsules by mouth every 12 (twelve) hours for 5 days. [facility] magnesium sulfate in water 2 gram/50 mL (4 %) infusion 2 g 05-01 13:45: 00 05-01 14:06 :00 No 2g 2 g, IV Piggyback, Administer over 60 Minutes, ONCE, 1 dose, On Fri05/01/22 at 0845, Routine [facility] diphenhydrA MINE (BENADRYL) injection 50 mg 05-01 12:45: 00 05-01 12:43 :00 No 50mg 50 mg, Slow IV Push, ONCE, 1 dose, On Fri05/01/22 at 0745, STAT [facility] maalox:diph enhydrAMINE :lidocaine 2 % viscous 1:1:1 (FIRST-MOUT HWASH [facility]) oral suspension 15 mL 02-08 07:15: 00 02-08 06:14 :00 No 15mL 15 mL, Oral, ONCE, 1 dose, On Fri02/08/22 at 0215, FAWN [facility] sucralfate 1 gram tablet 02-08 00:00: 00 Yes [id number] 1g Take 1 tablet by mouth before meals and at bedtime. [facility] ondansetron 4 mg disintegrat ing tablet 02-08 00:00: 00 Yes [id number] 4mg Take 1 tablet by mouth every 4 (four) hours as needed for Nausea and Vomiting (N/V). [facility] pantoprazol e 40 mg EC tablet 02-08 00:00: 00 Yes [id number] 40mg Take 1 tablet by mouth daily. [facility] maalox:diph enhydrAMINE :lidocaine 2 % viscous 1:1:1 (FIRST-MOUT HWASH BLM) oral suspension 15 mL 2020-10 02:15: 00 10-15 01:17 :00 No 15mL 15 mL, Oral, ONCE, 1 dose, On Fri10/14/21 at 2015, Routine [facility] iopamidol (ISOVUE 370-500 mL) injection 120 mL 2020-10 01:45: 00 10-15 00:37 :00 No [id number] 120mL 120 mL, Intravenou s, ONCE, 1 dose, On Fri10/14/21 at 1945, Routine [facility] famotidine (PEPCID (PF)) injection 20 mg 2020-10 00:30: 00 10-15 00:26 :00 No 20mg 20 mg, Slow IV Push, ONCE, 1 dose, On Fri10/14/21 at 1830, Routine [facility] enalapril 20 mg tablet 05-15 17:24: 35 Yes 25mg Take 25 mg by mouth daily. [facility] levothyroxi ne 200 mcg tablet 05-15 17:24: 35 Yes 300ug Take 300 mcg by mouth every morning. [facility] enalapril 20 mg tablet 05-15 12:24: 35 Yes 25mg Take 25 mg by mouth daily. [facility] levothyroxi ne 200 mcg tablet 05-15 12:24: 35 Yes 300ug Take 300 mcg by mouth every morning. [facility] FENTanyl (ACTIQ) lollipop 600 mcg 05-08 19:45: 00 05-08 18:59 :00 No [id number] 600ug 600 mcg, Buccal, ONCE, 1 dose, Fri05/08/21 at 1445, Routine [facility] sulfamethox azole-trime thoprim (BACTRIM DS) 800-160 mg per tablet 05-08 00:00: 00 05-16 04:59 :00 No [id number] 1{tbl} Take 1 tablet by mouth 2 (two) times daily for 7 days. [facility] HYDROcodone -acetaminop hen (NORCO) 10-325 mg tablet 1 tablet 05-06 09:45: 00 05-06 08:44 :00 No 1{tbl} 1 tablet, Oral, ONCE, 1 dose, 05/06/21 at 0445, Routine [facility] sulfamethox azole-trime thoprim 800-160 mg per tablet 05-06 00:00: 00 Yes [id number] 1{tbl} Take 1 tablet by mouth every 12 (twelve) hours. [facility] HYDROcodone -acetaminop hen 5-325 mg tablet 05-06 00:00: 00 05-14 04:59 :00 No [id number] 1{tbl} Take 1 tablet by mouth every 4 (four) hours as needed for Pain (scale 7-10) for up to 7 days. Indication s: acute pain [facility] ketorolac (TORADOL) injection 30 mg 03-15 06:30: 00 03-15 05:44 :00 No 30mg 30 mg, Slow IV Push, ONCE, 1 dose, [facility] 03/15/21 at 0130, Routine
environmental field team member approving Restricted medication : CHAPITO CONTRERAS [facility] enalapril 20 mg tablet 03-15 06:19: 47 Yes 25mg Take 25 mg by mouth daily. [facility] levothyroxi ne 200 mcg tablet 03-15 06:19: 47 Yes 300ug Take 300 mcg by mouth every morning. [facility] iopamidol (ISOVUE 370-500 mL) injection 120 mL 03-15 06:00: 00 03-15 06:00 :00 No [id number] 120mL 120 mL, Intravenou s, ONCE, 1 dose, [facility] 03/15/21 at 0100, Routine [facility] KCL (KLOR-CON M20) tablet 40 mEq 03-15 05:45: 00 03-15 05:01 :00 No [id number] 40 mEq, Oral, ONCE, 1 dose, [facility] 03/15/21 at 0045, Routine [facility] ondansetron (ZOFRAN (PF)) injection 4 mg 03-15 05:30: 00 03-15 04:32 :00 No 4mg 4 mg, Slow IV Push, ONCE, 1 dose, [facility] 03/15/21 at 0030, FAWN [facility] FENTanyl PF (SUBLIMAZE (PF)) injection 75 mcg 03-15 05:30: 00 03-15 04:32 :00 No 75ug 75 mcg, Slow IV Push, ONCE, 1 dose, [facility] 03/15/21 at 0030, Routine [facility] traMADoL (ULTRAM) 50 mg tablet 03-15 00:00: 00 Yes [id number] 50mg Take 1 tablet by mouth every 6 (six) hours as needed for Pain (scale 4-6) or Pain (scale 7-10). Indication s: acute pain [facility] methocarbam oL 500 mg tablet 03-15 00:00: 00 Yes [id number] 500mg Take 1 tablet by mouth every 6 (six) hours as needed (MUSCLE SPASM). [facility] ibuprofen 800 mg tablet 03-15 00:00: 00 02-20 00:00 :00 No [id number] 800mg Take 1 tablet by mouth every 8 (eight) hours as needed for Pain (scale 4-6). [facility] pantoprazol e (PROTONIX) 80 mg in NaCl 0.9% (NS) 20 mL syringe 2019-10 00:15: 00 09-08 23:17 :00 No 80mg 80 mg, IV Push, ONCE, 1 dose, 09/08/20 at 1815, 20 mL [facility] maalox:diph enhydrAMINE :lidocaine2 %viscous 1:1:1: suspension (COMPOUNDED ) 2019-10 00:15: 00 09-08 23:16 :00 No 15mL 15 mL, Oral, ONCE, 1 dose, Fri09/08/20 at 1815, Routine [facility] sucralfate 1 gram tablet 2019-10 00:00: 00 Yes [id number] 1g Take 1 tablet by mouth before meals and at bedtime. [facility] dicyclomine (BENTYL) 10 mg capsule 2019-10 00:00: 00 Yes [id number] 10mg Take 1 capsule by mouth every 8 (eight) hours as needed for Abdominal pain. [facility] ondansetron 4 mg disintegrat ing tablet 2019-10 00:00: 00 Yes [id number] 4mg Take 1 tablet by mouth every 8 (eight) hours as needed for Nausea and Vomiting (N/V). [facility] [facility] 20 mg capsule 2019-10 00:00: 00 10-09 05:59 :00 No [id number] 20mg Take 1 capsule by mouth daily for 30 days. [facility] ketorolac (TORADOL) injection 30 mg 2019-10 20:15: 00 09-06 19:14 :00 No 30mg 30 mg, Slow IV Push, ONCE, 1 dose, Fri09/06/20 at 1415, FAWN
Fa culty member approving Restricted medication : Nidia SOLANO [facility] FENTanyl PF (SUBLIMAZE (PF)) injection 50 mcg 2019-10 18:45: 00 09-06 17:38 :00 No 50ug 50 mcg, Slow IV Push, ONCE, 1 dose, Fri09/06/20 at 1245, STAT [facility] iohexol (OMNIPAQUE 350 BULK-500 mL) injection 150 mL 2019-10 18:15: 00 09-06 17:00 :00 No 150mL 150 mL, Intravenou s, ONCE, 1 dose, Fri09/06/20 at 1215, Routine [facility] ondansetron (ZOFRAN (PF)) injection 4 mg 2019-10 17:30: 00 09-06 16:33 :00 No 4mg 4 mg, Slow IV Push, ONCE, 1 dose, Fri09/06/20 at 1130, FAWN [facility] morpHINE injection 4 mg 2019-10 17:30: 00 09-06 16:33 :00 No 4mg 4 mg, Slow IV Push, ONCE, 1 dose, Fri09/06/20 at 1130, STAT [facility] ibuprofen 600 mg tablet 2019-10 00:00: 00 03-14 00:00 :00 No [id number] 600mg Take 1 tablet by mouth every 6 (six) hours as needed for Pain (scale 4-6). [facility] Polyethylen e Glycol 3350 (MIRALAX) powder 17 g 2019-10 13:00: 00 08-30 11:55 :00 No 17g 17 g, Oral, ONCE, 1 dose, Fri08/30/20 at 0700, Routine [facility] aspirin 81 mg chewable tablet 2019-10 00:00: 00 09-30 05:59 :00 No [id number] 81mg Take 1 tablet by mouth daily for 30 days. [facility] levothyroxi ne 125 mcg tablet 2019-10 23:22: 41 08-29 00:00 :00 No 300ug Take 300 mcg by mouth every morning. [facility] lisinopriL 30 mg tablet 2019-10 23:22: 41 08-29 00:00 :00 No 25mg Take 25 mg by mouth daily. [facility] ondansetron (ZOFRAN (PF)) injection 4 mg 2019-10 23:15: 07 08-31 23:14 :07 No 4mg 4 mg, Slow IV Push, Q6HPRN, Starting Fri08/29/20 at 1715, Until Fri08/31/20 at 1714, Routine, Nausea and Vomiting (N/V) [facility] morpHINE injection 2 mg 2019-10 22:49: 42 08-30 22:48 :42 No 2mg 2 mg, Slow IV Push, Q4HPRN, Starting Fri08/29/20 at 1649, Until Fri08/30/20 at 1648, Routine, Pain (scale 7-10) [facility] ondansetron (ZOFRAN (PF)) injection 4 mg 2019-10 18:03: 34 08-29 22:50 :21 No 4mg 4 mg, Slow IV Push, Q6HPRN, Starting Fri08/29/20 at 1203, Until Fri08/29/20 at 1650, Routine, Nausea and Vomiting (N/V) [facility] ibuprofen (IBU) tablet 600 mg 2019-10 18:00: 00 Yes 600mg 600 mg, Oral, Q6H, First dose on Fri08/29/20 at 1200, Until Discontinu ed, Routine [facility] acetaminoph en (TYLENOL) tablet 500 mg 2019-10 18:00: 00 Yes 500mg 500 mg, Oral, Q6H, First dose on Fri08/29/20 at 1200, Until Discontinu ed, Routine [facility] lactated ringers IV infusion 1,000 mL 2019-10 17:00: 00 Yes 1000mL at 75 mL/hr, 1,000 mL, IV Infusion, CONTINUOUS , Starting Fri08/29/20 at 1100, Until Discontinu ed, Routine, PACU [facility] FENTanyl PF (SUBLIMAZE (PF)) injection 25 mcg 2019-10 16:57: 53 08-29 17:58 :11 No 25ug 25 mcg, Slow IV Push, Q5MIN PRN, 4 doses, Starting Fri08/29/20 at 1057, Until Fri08/29/20 at 1158, Routine, Pain (scale 4-6), PACU [facility] ondansetron (ZOFRAN (PF)) injection 4 mg 2019-10 16:57: 53 08-29 17:13 :00 No 4mg 4 mg, Slow IV Push, PRN, 1 dose, Starting Fri08/29/20 at 1057, Until Fri08/29/20 at 1113, Routine, Nausea and Vomiting (N/V), PACU [facility] traMADoL (ULTRAM) tablet 100 mg 2019-10 16:11: 10 08-29 22:51 :09 No 100mg 100 mg, Oral, Q6HPRN, Starting Fri08/29/20 at 1011, Until Fri08/29/20 at 1651, Routine, Pain (scale 7-10) [facility] traMADoL (ULTRAM) tablet 50 mg 2019-10 16:10: 52 Yes 50mg 50 mg, Oral, Q6HPRN, Starting Fri08/29/20 at 1010, Until Discontinu ed, Routine, Pain (scale 4-6) [facility] acetaminoph en ADULT (OFIRMEV) injection 1,000 mg 2019-10 00:15: 00 08-29 16:11 :33 No 1000mg 1,000 mg, IV Infusion, Administer over 15 Minutes, Q6H ABX, 4 doses, First dose on Fri08/28/20 at 1815, Last dose on Fri08/29/20 at 1215, Routine
Indicatio n: Non-periop erative Patient
Approved by: Per Policy (NPO Status) [facility] metroNIDAZO LE in NaCl (iso-os) (FLAGYL I.V.) RTU IV infusion 500 mg 2019-10 00:15: 00 08-29 16:11 :42 No 500mg 500 mg, IV Infusion, Q8H ABX, First dose on Fri08/28/20 at 1815, Until Discontinu ed, 100 mL
Reas on for Anti-Infec tive: Empiric Therapy for Suspected Infection< br>Empiric Therapy Site: Abdominal< br>Duratio n of therapy: 7 days [facility] levoFLOXaci n in D5W (LEVAQUIN) 750 mg/150 mL Piggyback 750 mg 2019-10 00:15: 00 08-29 16:11 :42 No 750mg 750 mg, IV Piggyback, Administer over 90 Minutes, Q24H ABX, First dose on Fri08/28/20 at 1815, Until Discontinu ed, FAWN
Re ason for Anti-Infec tive: Empiric Therapy for Suspected Infection< br>Empiric Therapy Site: Abdominal< br>Duratio n of therapy: 72 hours [facility] levothyroxi ne 125 mcg tablet 2019-10 00:00: 00 09-29 05:59 :00 No [id number] 312.5ug Take 2.5 tablets by mouth every morning for 30 days. [facility] lisinopriL 30 mg tablet 2019-10 00:00: 00 09-29 05:59 :00 No [id number] 30mg Take 1 tablet by mouth daily for 30 days. [facility] pantoprazol e (PROTONIX) 40 mg EC tablet 2019-10 00:00: 00 09-29 05:59 :00 No [id number] 40mg Take 1 tablet by mouth daily for 30 days. [facility] ibuprofen 800 mg tablet 2019-10 00:00: 00 09-04 05:59 :00 No [id number] 800mg Take 1 tablet by mouth every 8 (eight) hours as needed for Pain (scale 4-6) for up to 5 days. [facility] sulfur hexafluorid e microsphr (LUMASON) injection 5 mL 2019-10 21:30: 00 08-28 16:58 :00 No 5mL 5 mL, Intravenou s, ONCE, 1 dose, Fri08/28/20 at 1530, Routine
environmental field team member approving Restricted medication : DARIAN DAVENPORT [facility] morpHINE injection 4 mg 2019-10 20:09: 08 08-29 16:11 :42 No 4mg 4 mg, Slow IV Push, Q4HPRN, Starting Fri08/28/20 at 1409, Until Tu08/29/20 at 1011, Routine, Pain (scale 7-10) [facility] morpHINE injection 2 mg 2019-10 18:15: 00 08-28 17:20 :00 No 2mg 2 mg, Slow IV Push, ONCE, 1 dose, Fri08/28/20 at 1215, Routine [facility] levothyroxi ne (SYNTHROID) tablet 200 mcg 2019-10 12:00: 00 Yes 200ug 200 mcg, Oral, QAM-0600, First dose (after last modificati on) on 08/28/20 at 0600, Until Discontinu ed, Routine [facility] enoxaparin (LOVENOX) injection 40 mg 2019-10 23:00: 00 Yes 40mg 40 mg, Subcutaneo us, DAILY, First dose on 08/27/20 at 1700, Until Discontinu ed, Routine [facility] ketorolac (TORADOL) injection 30 mg 2019-10 15:45: 00 08-27 14:53 :00 No 30mg 30 mg, Slow IV Push, ONCE, 1 dose, 08/27/20 at 0945, Routine
environmental field team member approving Restricted medication : DOMINGO ANNE [facility] lisinopriL (PRINIVIL,Z ESTRIL) tablet 20 mg 2019-10 15:00: 00 Yes 20mg 20 mg, Oral, DAILY, First dose on 08/27/20 at 0900, Until Discontinu ed, Routine [facility] pantoprazol e (PROTONIX) EC tablet 40 mg 2019-10 15:00: 00 Yes 40mg 40 mg, Oral, DAILY, First dose on 08/27/20 at 0900, Until Discontinu ed, Routine [facility] aspirin chewable tablet 81 mg 2019-10 15:00: 00 Yes 81mg 81 mg, Oral, DAILY, First dose on 08/27/20 at 0900, Until Discontinu ed, Routine [facility] levothyroxi ne (SYNTHROID) tablet 300 mcg 2019-10 12:00: 00 08-27 14:38 :59 No 300ug 300 mcg, Oral, QAM-0600, First dose on 08/27/20 at 0600, Until Discontinu ed, Routine [facility] nicotine (NICODERM) 21 mg/24 hr patch 1 Patch 2019-10 08:30: 00 Yes 1{patch } 1 Patch, Topical, Administer over 24 Hours, Q24H, First dose on 08/27/20 at 0230, Until Discontinu ed, Routine [facility] acetaminoph en (TYLENOL) tablet 975 mg 2019-10 08:15: 00 08-27 07:56 :00 No 975mg 975 mg, Oral, ONCE, 1 dose, [place] 08/27/20 at 0215, FAWN [facility] iohexol (OMNIPAQUE 350 BULK-100 mL) injection 120 mL 2019-10 07:45: 00 08-27 07:34 :00 No 120mL 120 mL, Intravenou s, ONCE, 1 dose, [place] 08/27/20 at 0145, Routine [facility] traMADoL (ULTRAM) tablet 50 mg 2019-10 07:16: 43 08-29 07:15 :43 No 50mg 50 mg, Oral, Q8HPRN, Starting [place] 08/27/20 at 0116, Until Fri08/29/20 at 0115, Routine, Pain (scale 4-6) [facility] acetaminoph en (TYLENOL) tablet 650 mg 2019-10 07:16: 41 08-28 23:11 :03 No 650mg 650 mg, Oral, Q6HPRN, Starting [place] 08/27/20 at 0116, Until Fri08/28/20 at 1711, Routine, Pain (scale 1-3) [facility] morpHINE injection 2 mg 2019-10 07:14: 54 08-28 20:09 :18 No 2mg 2 mg, Slow IV Push, Q4HPRN, Starting [place] 08/27/20 at 0114, Until Fri08/28/20 at 1409, Routine, Pain (scale 7-10) [facility] nitroglycer in (NITROSTAT) sublingual tablet 0.4 mg 2019-10 07:03: 30 Yes .4mg 0.4 mg, Sublingual , Q5MIN PRN, Starting [place] 08/27/20 at 0103, Until Discontinu ed, Routine, Chest pain [facility] alum-mag hydroxide-s imeth (MAALOX PLUS / MAG-AL PLUS) 200-200-20 mg/5 mL suspension 30 mL 2019-10 07:02: 48 Yes 30mL 30 mL, Oral, Q6HPRN, Starting 08/27/20 at 0102, Until Discontinu ed, Routine, Indigestio n [facility] aspirin tablet 325 mg 2019-10 07:00: 00 08-27 06:16 :00 No 325mg 325 mg, Oral, ONCE, 1 dose, 08/27/20 at 0100, STAT [facility] nitroglycer in (NITROSTAT) sublingual tablet 0.4 mg 2019-10 07:00: 00 08-27 06:16 :00 No .4mg 0.4 mg, Sublingual , ONCE, 1 dose, 08/27/20 at 0100, [facility] acute [facility] aspirin chewable tablet 324 mg 07-10 14:00: 00 Yes 324mg 324 mg, Oral, DAILY, First dose on Fri07/10/20 at 0900, Until Discontinu ed, Routine [facility] iohexol (OMNIPAQUE 350 BULK-100 mL) injection 120 mL 07-10 05:15: 00 07-10 05:08 :00 No 120mL 120 mL, Intravenou s, ONCE, 1 dose, [facility] 07/10/20 at 0015, Routine [facility] codeine-gua ifenesin (ROBITUSSIN AC) 10-100 mg/5 mL solution 10 mL 07-10 04:30: 00 07-10 03:23 :00 No 10mL 10 mL, Oral, ONCE, 1 dose, [place] 07/09/20 at 2330, [facility] acute hospital LORazepam (ATIVAN) injection 1 mg 07-10 03:45: 00 07-10 03:14 :00 No 1mg 1 mg, Slow IV Push, ONCE, 1 dose, [place] 07/09/20 at 2245, STAT [facility] morpHINE injection 4 mg 07-10 03:30: 00 07-10 03:16 :00 No 4mg 4 mg, Slow IV Push, ONCE, 1 dose, [place] 07/09/20 at 2230, STAT [facility] pantoprazol e (PROTONIX) 40 mg in NaCl 0.9% (NS) 100 mL MINI-BAG 07-10 02:30: 00 07-10 01:48 :00 No 40mg 40 mg, IV Piggyback, ONCE, 1 dose, 07/09/20 at 2130, 100 mL [facility] ondansetron (ZOFRAN (PF)) injection 4 mg 07-10 02:00: 00 07-10 01:03 :00 No 4mg 4 mg, Slow IV Push, ONCE, 1 dose, 07/09/20 at 2100, FAWN [facility] morpHINE injection 4 mg 07-10 02:00: 00 07-10 01:03 :00 No 4mg 4 mg, Slow IV Push, ONCE, 1 dose, 07/09/20 at 2100, STAT [facility] nitroglycer in (NITROSTAT) sublingual tablet 0.4 mg 07-10 02:00: 00 07-10 01:02 :00 No .4mg 0.4 mg, Sublingual , ONCE, 1 dose, 07/09/20 at 2100, FAWN [facility] pantoprazol e (PROTONIX) 40 mg EC tablet 07-10 00:00: 00 08-29 00:00 :00 No [id number] 40mg Take 1 tablet by mouth daily. [facility] dicyclomine 20 mg tablet 07-10 00:00: 08-29 00:00 :00 No [id number] 20mg Take 1 tablet by mouth every 6 (six) hours as needed for Abdominal pain. [facility] benzonatate 200 mg capsule 07-10 00:00: 08-29 00:00 :00 No [id number] 200mg Take 1 capsule by mouth 3 (three) times daily as needed for Cough. [facility] ibuprofen 800 mg tablet 2018-10 0 00:00: 08-29 00:00 :00 No [id number] 800mg Take 1 tablet by mouth every 8 (eight) hours as needed for Pain (scale 4-6). [facility] cyclobenzap rine 5 mg tablet 03-30 00:00: 00 08-29 00:00 :00 No [id number] 5mg Take 1 tablet by mouth 3 (three) times daily as needed for Muscle Spasms. [facility] LORazepam (ATIVAN) 0.5 mg tablet 06-14 00:00: 00 08-29 00:00 :00 No .5mg Take 1 tablet by mouth 2 (two) times daily as needed for Anxiety. [facility] levothyroxi ne 125 mcg tablet 05-11 10:32: 30 Yes 125ug Take 125 mcg by mouth every morning. [facility] Vital Signs Vital Name Observation Time Observation Value Comments S jeffersonzackary Systolic blood pressure 2024-02-04 18:48:00 142 mm[Hg] [facility] Diastolic blood pressure 2024-02-04 18:48:00 97 mm[Hg] [facility] Heart rate 2024-02-04 18:48:00 84 /min [facility] Respiratory rate 2024-02-04 18:48:00 16 /min [facility] Oxygen saturation in Arterial blood by Pulse oximetry 2024-02-04 18:48:00 97 /min [facility] Body temperature 2024-02-04 15:46:00 36.67 Nano [facility] Body height 2024-02-04 15:46:00 172.7 cm [facility] Body weight 2024-02-04 15:46:00 111.131 kg [facility] BMI 2024-02-04 15:46:00 37.25 kg/m2 [facility] Heart rate 2023-12-28 09:23:00 84 /min [facility] Respiratory rate 2023-12-28 09:23:00 16 /min [facility] Oxygen saturation in Arterial blood by Pulse oximetry 2023-12-28 09:23:00 96 /min [facility] Systolic blood pressure 2023-12-28 09:00:00 131 mm[Hg] [facility] Diastolic blood pressure 2023-12-28 09:00:00 81 mm[Hg] [facility] Body temperature 2023-12-28 08:13:00 37 Nano [facility] Body height 2023-12-28 08:13:00 172.7 cm [facility] Body weight 2023-12-28 08:13:00 110.632 kg [facility] BMI 2023-12-28 08:13:00 37.08 kg/m2 [facility] Systolic blood pressure 2023-11-06 08:00:00 117 mm[Hg] [facility] Diastolic blood pressure 2023-11-06 08:00:00 75 mm[Hg] [facility] Heart rate 2023-11-06 08:00:00 80 /min [facility] Body temperature 2023-11-06 08:00:00 37 Nano [facility] Respiratory rate 2023-11-06 08:00:00 18 /min [facility] Oxygen saturation in Arterial blood by Pulse oximetry 2023-11-06 08:00:00 97 /min [facility] Body height 2023-11-06 05:50:00 172.7 cm [facility] Body weight 2023-11-06 05:50:00 113.309 kg [facility] BMI 2023-11-06 05:50:00 37.98 kg/m2 [facility] Systolic blood pressure 2023-11-01 10:00:00 142 mm[Hg] [facility] Diastolic blood pressure 2023-11-01 10:00:00 81 mm[Hg] [facility] Heart rate 2023-11-01 10:00:00 79 /[facility] Body temperature 2023-11-01 10:00:00 37.17 Nano [facility] Respiratory rate 2023-11-01 10:00:00 16 /min [facility] Oxygen saturation in Arterial blood by Pulse oximetry 2023-11-01 10:00:00 94 /min [facility] Body height 2023-11-01 05:37:00 172.7 cm [facility] Body weight 2023-11-01 05:37:00 111.131 kg [facility] BMI 2023-11-01 05:37:00 37.25 kg/m2 [facility] Systolic blood pressure 2023-10-23 08:00:00 140 mm[Hg] [facility] Diastolic blood pressure 2023-10-23 08:00:00 88 mm[Hg] [facility] Heart rate 2023-10-23 08:00:00 89 /min [facility] Oxygen saturation in Arterial blood by Pulse oximetry 2023-10-23 08:00:00 94 /min [facility] Respiratory rate 2023-10-23 05:53:00 16 /min [facility] Body temperature 2023-10-23 05:45:00 36.72 Nano [facility] Body height 2023-10-23 05:45:00 172.7 cm [facility] Body weight 2023-10-23 05:45:00 113.399 kg [facility] BMI 2023-10-23 05:45:00 38.01 kg/m2 [facility] Systolic blood pressure 2023-09-26 08:00:00 159 mm[Hg] [facility] Diastolic blood pressure 2023-09-26 08:00:00 80 mm[Hg] [facility] Heart rate 2023-09-26 08:00:00 75 /min [facility] Respiratory rate 2023-09-26 08:00:00 20 /min [facility] Oxygen saturation in Arterial blood by Pulse oximetry 2023-09-26 08:00:00 94 /min [facility] Body temperature 2023-09-26 05:02:00 36.72 Nano [facility] Systolic blood pressure 2023-08-24 08:14:00 140 mm[Hg] [facility] Diastolic blood pressure 2023-08-24 08:14:00 73 mm[Hg] [facility] Heart rate 2023-08-24 08:14:00 75 /min [facility] Body temperature 2023-08-24 08:14:00 36.67 Nano [facility] Respiratory rate 2023-08-24 08:14:00 18 /min [facility] Oxygen saturation in Arterial blood by Pulse oximetry 2023-08-24 08:14:00 96 /min [facility] Body height 2023-08-24 03:41:00 172.7 cm [facility] Body weight 2023-08-24 03:41:00 113.399 kg [facility] BMI 2023-08-24 03:41:00 38.01 kg/m2 [facility] Systolic blood pressure 2023-07-07 10:53:00 140 mm[Hg] [facility] Diastolic blood pressure 2023-07-07 10:53:00 83 mm[Hg] [facility] Heart rate 2023-07-07 10:53:00 75 /min [facility] Respiratory rate 2023-07-07 10:53:00 16 /min [facility] Oxygen saturation in Arterial blood by Pulse oximetry 2023-07-07 10:53:00 97 /min [facility] Body temperature 2023-07-07 08:57:00 36.44 Nano [facility] Body height 2023-07-07 08:57:00 172.7 cm [facility] Body weight 2023-07-07 08:57:00 113.399 kg [facility] BMI 2023-07-07 08:57:00 38.01 kg/m2 [facility] Systolic blood pressure 2023-05-26 03:30:00 140 mm[Hg] [facility] Diastolic blood pressure 2023-05-26 03:30:00 78 mm[Hg] [facility] Heart rate 2023-05-26 03:30:00 80 /min [facility] Respiratory rate 2023-05-26 03:30:00 23 /min [facility] Oxygen saturation in Arterial blood by Pulse oximetry 2023-05-26 03:30:00 94 /min [facility] Body temperature 2023-05-26 03:00:00 36.78 Nano [facility] Body weight 2023-05-25 22:19:00 121.564 kg [facility] BMI 2023-05-25 22:19:00 40.75 kg/m2 [facility] Systolic blood pressure 2023-02-21 01:51:00 123 mm[Hg] [facility] Diastolic blood pressure 2023-02-21 01:51:00 74 mm[Hg] [facility] Heart rate 2023-02-20 23:03:00 95 /min [facility] Body temperature 2023-02-20 23:03:00 38.28 Nano [facility] Respiratory rate 2023-02-20 23:03:00 18 /min [facility] Body height 2023-02-20 23:03:00 172.7 cm [facility] Body weight 2023-02-20 23:03:00 121.564 kg [facility] BMI 2023-02-20 23:03:00 40.75 kg/m2 [facility] Oxygen saturation in Arterial blood by Pulse oximetry 2023-02-20 23:03:00 97 /min [facility] Systolic blood pressure 2022-12-29 10:00:00 142 mm[Hg] [facility] Diastolic blood pressure 2022-12-29 10:00:00 78 mm[Hg] [facility] Heart rate 2022-12-29 10:00:00 71 /min [facility] Oxygen saturation in Arterial blood by Pulse oximetry 2022-12-29 09:57:00 96 /min [facility] Body temperature 2022-12-29 06:35:00 36.89 Nano [facility] Respiratory rate 2022-12-29 06:35:00 20 /min [facility] Body height 2022-12-29 06:35:00 172.7 cm [facility] Body weight 2022-12-29 06:35:00 121.745 kg [facility] BMI 2022-12-29 06:35:00 40.81 kg/m2 [facility] Systolic blood pressure 2022-11-21 08:14:00 162 mm[Hg] [facility] Diastolic blood pressure 2022-11-21 08:14:00 101 mm[Hg] [facility] Heart rate 2022-11-21 08:09:00 92 /min [facility] Body temperature 2022-11-21 08:09:00 37.11 Nano [facility] Respiratory rate 2022-11-21 08:09:00 16 /min [facility] Body height 2022-11-21 08:09:00 172.7 cm [facility] Body weight 2022-11-21 08:09:00 115.667 kg [facility] BMI 2022-11-21 08:09:00 38.77 kg/m2 [facility] Oxygen saturation in Arterial blood by Pulse oximetry 2022-11-21 08:09:00 97 /min [facility] Systolic blood pressure 2022-10-29 07:34:00 167 mm[Hg] [facility] Diastolic blood pressure 2022-10-29 07:34:00 97 mm[Hg] [facility] Heart rate 2022-10-29 07:34:00 93 /min [facility] Body temperature 2022-10-29 07:34:00 37.39 Nano [facility] Respiratory rate 2022-10-29 07:34:00 20 /min [facility] Body height 2022-10-29 07:34:00 172.7 cm [facility] Body weight 2022-10-29 07:34:00 113.399 kg [facility] BMI 2022-10-29 07:34:00 38.01 kg/m2 [facility] Oxygen saturation in Arterial blood by Pulse oximetry 2022-10-29 07:34:00 97 /min [facility] Systolic blood pressure 2022-06-02 05:00:00 165 mm[Hg] [facility] Diastolic blood pressure 2022-06-02 05:00:00 119 mm[Hg] [facility] Heart rate 2022-06-02 05:00:00 74 /min [facility] Respiratory rate 2022-06-02 05:00:00 23 /min [facility] Oxygen saturation in Arterial blood by Pulse oximetry 2022-06-02 05:00:00 95 /min [facility] Body temperature 2022-06-02 04:41:00 36.67 Nano [facility] Systolic blood pressure 2022-05-28 18:36:21 147 mm[Hg] [facility] Diastolic blood pressure 2022-05-28 18:36:21 97 mm[Hg] [facility] Heart rate 2022-05-28 18:36:21 62 /min [facility] Respiratory rate 2022-05-28 18:36:21 18 /min [facility] Oxygen saturation in Arterial blood by Pulse oximetry 2022-05-28 18:36:21 96 /min [facility] Body temperature 2022-05-28 15:06:00 37.22 Nano [facility] Body height 2022-05-28 15:06:00 172.7 cm [facility] Body weight 2022-05-28 15:06:00 124.739 kg [facility] BMI 2022-05-28 15:06:00 41.81 kg/m2 [facility] Systolic blood pressure 2022-05-06 06:42:00 137 mm[Hg] [facility] Diastolic blood pressure 2022-05-06 06:42:00 90 mm[Hg] [facility] Heart rate 2022-05-06 06:42:00 81 /min [facility] Respiratory rate 2022-05-06 06:42:00 16 /min [facility] Oxygen saturation in Arterial blood by Pulse oximetry 2022-05-06 06:42:00 94 /min [facility] Body temperature 2022-05-06 03:30:00 36.78 Nano [facility] [facility] Body height 2022-05-06 03:30:00 172.7 cm [facility] Body weight 2022-05-06 03:30:00 117.935 kg [facility] BMI 2022-05-06 03:30:00 39.53 kg/m2 [facility] Systolic blood pressure 2022-05-01 13:30:00 147 mm[Hg] [facility] Diastolic blood pressure 2022-05-01 13:30:00 91 mm[Hg] [facility] Heart rate 2022-05-01 13:30:00 73 /min [facility] Respiratory rate 2022-05-01 13:30:00 17 /min [facility] Oxygen saturation in Arterial blood by Pulse oximetry 2022-05-01 13:30:00 95 /min [facility] Body temperature 2022-05-01 12:28:00 36.78 Nano [facility] Body weight 2022-05-01 12:28:00 121.564 kg [facility] BMI 2022-05-01 12:28:00 40.75 kg/m2 [facility] Systolic blood pressure 2022-02-08 07:00:00 133 mm[Hg] [facility] Diastolic blood pressure 2022-02-08 07:00:00 94 mm[Hg] [facility] Heart rate 2022-02-08 07:00:00 77 /min [facility] Respiratory rate 2022-02-08 07:00:00 21 /min [facility] Oxygen saturation in Arterial blood by Pulse oximetry 2022-02-08 07:00:00 95 /min [facility] Body temperature 2022-02-08 06:04:00 36.5 Nano [facility] Body height 2022-02-08 06:04:00 172.7 cm [facility] Body weight 2022-02-08 06:04:00 113.399 kg [facility] BMI 2022-02-08 06:04:00 38.01 kg/m2 [facility] Systolic blood pressure 2021-10-14 22:36:00 152 mm[Hg] [facility] Diastolic blood pressure 2021-10-14 22:36:00 87 mm[Hg] [facility] Heart rate 2021-10-14 22:36:00 95 /min [facility] Body temperature 2021-10-14 22:36:00 36.94 Nano [facility] Respiratory rate 2021-10-14 22:36:00 18 /min [facility] Body weight 2021-10-14 22:36:00 122.29 kg [facility] BMI 2021-10-14 22:36:00 40.99 kg/m2 [facility] Oxygen saturation in Arterial blood by Pulse oximetry 2021-10-14 22:36:00 97 /min [facility] Systolic blood pressure 2021-05-15 17:15:00 148 mm[Hg] [facility] Diastolic blood pressure 2021-05-15 17:15:00 84 mm[Hg] [facility] Heart rate 2021-05-15 17:15:00 99 /min [facility] Body temperature 2021-05-15 17:15:00 36.5 Nano [facility] Respiratory rate 2021-05-15 17:15:00 20 /min [facility] Body weight 2021-05-15 17:15:00 117.073 kg [facility] BMI 2021-05-15 17:15:00 39.24 kg/m2 [facility] Oxygen saturation in Arterial blood by Pulse oximetry 2021-05-15 17:15:00 97 /min [facility] Systolic blood pressure 2021-05-08 18:10:00 156 mm[Hg] [facility] Diastolic blood pressure 2021-05-08 18:10:00 95 mm[Hg] [facility] Heart rate 2021-05-08 18:10:00 99 /min [facility] Body temperature 2021-05-08 18:10:00 36.06 Nano [facility] Respiratory rate 2021-05-08 18:10:00 18 /min [facility] Body weight 2021-05-08 18:10:00 116.756 kg [facility] BMI 2021-05-08 18:10:00 39.14 kg/m2 [facility] Oxygen saturation in Arterial blood by Pulse oximetry 2021-05-08 18:10:00 96 /min [facility] Systolic blood pressure 2021-05-06 09:26:00 145 mm[Hg] [facility] Diastolic blood pressure 2021-05-06 09:26:00 93 mm[Hg] [facility] Heart rate 2021-05-06 09:26:00 79 /min [facility] Respiratory rate 2021-05-06 09:26:00 20 /min [facility] Oxygen saturation in Arterial blood by Pulse oximetry 2021-05-06 09:26:00 97 /min [facility] Body temperature 2021-05-06 07:56:00 37.11 Nano [facility] Body height 2021-05-06 07:56:00 172.7 cm [facility] Body weight 2021-05-06 07:56:00 118.434 kg [facility] BMI 2021-05-06 07:56:00 39.70 kg/m2 [facility] Systolic blood pressure 2021-03-15 06:19:00 127 mm[Hg] [facility] Diastolic blood pressure 2021-03-15 06:19:00 79 mm[Hg] [facility] Heart rate 2021-03-15 06:19:00 78 /min [facility] Respiratory rate 2021-03-15 06:19:00 23 /min [facility] Oxygen saturation in Arterial blood by Pulse oximetry 2021-03-15 06:19:00 96 /min [facility] Body temperature 2021-03-15 03:05:45 37 Nano [facility] Body weight 2021-03-15 02:46:00 114.76 kg [facility] BMI 2021-03-15 02:46:00 38.47 kg/m2 [facility] Systolic blood pressure 2021-03-15 06:19:00 127 mm[Hg] [facility] Diastolic blood pressure 2021-03-15 06:19:00 79 mm[Hg] [facility] Heart rate 2021-03-15 06:19:00 78 /min [facility] Respiratory rate 2021-03-15 06:19:00 23 /min [facility] Oxygen saturation in Arterial blood by Pulse oximetry 2021-03-15 06:19:00 96 /min [facility] Body temperature 2021-03-15 03:05:45 37 Nano [facility] Body weight 2021-03-15 02:46:00 114.76 kg [facility] BMI 2021-03-15 02:46:00 38.47 kg/m2 [facility] Systolic blood pressure 2020-09-09 00:10:00 124 mm[Hg] [facility] Diastolic blood pressure 2020-09-09 00:10:00 77 mm[Hg] [facility] Heart rate 2020-09-09 00:10:00 83 /min [facility] Respiratory rate 2020-09-09 00:10:00 16 /min [facility] Oxygen saturation in Arterial blood by Pulse oximetry 2020-09-09 00:10:00 97 /min [facility] Body temperature 2020-09-08 23:14:00 37.39 Nano [facility] Body weight 2020-09-08 22:49:00 107.956 kg [facility] BMI 2020-09-08 22:49:00 36.19 kg/m2 [facility] Systolic blood pressure 2020-09-09 00:10:00 124 mm[Hg] [facility] Diastolic blood pressure 2020-09-09 00:10:00 77 mm[Hg] [facility] Heart rate 2020-09-09 00:10:00 83 /min [facility] Respiratory rate 2020-09-09 00:10:00 16 /min [facility] Oxygen saturation in Arterial blood by Pulse oximetry 2020-09-09 00:10:00 97 /min [facility] Body temperature 2020-09-08 23:14:00 37.39 Nano [facility] Body weight 2020-09-08 22:49:00 107.956 kg [facility] BMI 2020-09-08 22:49:00 36.19 kg/m2 [facility] Systolic blood pressure 2020-09-06 19:30:00 115 mm[Hg] [facility] Diastolic blood pressure 2020-09-06 19:30:00 65 mm[Hg] [facility] Heart rate 2020-09-06 19:30:00 67 /min [facility] Body temperature 2020-09-06 19:30:00 36.83 Nano [facility] Respiratory rate 2020-09-06 19:30:00 19 /min [facility] Oxygen saturation in Arterial blood by Pulse oximetry 2020-09-06 19:30:00 99 /min [facility] Body weight 2020-09-06 15:41:00 107.956 kg [facility] BMI 2020-09-06 15:41:00 36.19 kg/m2 [facility] Systolic blood pressure 2020-09-06 19:30:00 115 mm[Hg] [facility] Diastolic blood pressure 2020-09-06 19:30:00 65 mm[Hg] [facility] Heart rate 2020-09-06 19:30:00 67 /min [facility] Body temperature 2020-09-06 19:30:00 36.83 Nano [facility] Respiratory rate 2020-09-06 19:30:00 19 /min [facility] Oxygen saturation in Arterial blood by Pulse oximetry 2020-09-06 19:30:00 99 /min [facility] Body weight 2020-09-06 15:41:00 107.956 kg [facility] BMI 2020-09-06 15:41:00 36.19 kg/m2 [facility] Systolic blood pressure 2020-08-30 13:11:00 136 mm[Hg] [facility] Diastolic blood pressure 2020-08-30 13:11:00 77 mm[Hg] [facility] Heart rate 2020-08-30 13:11:00 74 /min [facility] Body temperature 2020-08-30 13:11:00 36.5 Nano [facility] Respiratory rate 2020-08-30 13:11:00 18 /min [facility] Oxygen saturation in Arterial blood by Pulse oximetry 2020-08-30 13:11:00 96 /min [facility] Body weight 2020-08-30 09:00:00 107.956 kg [facility] BMI 2020-08-30 09:00:00 36.19 kg/m2 [facility] Body height 2020-08-27 07:49:00 172.7 cm [facility] Systolic blood pressure 2020-08-30 13:11:00 136 mm[Hg] [facility] Diastolic blood pressure 2020-08-30 13:11:00 77 mm[Hg] [facility] Heart rate 2020-08-30 13:11:00 74 /min [facility] Body temperature 2020-08-30 13:11:00 36.5 Nano [facility] Respiratory rate 2020-08-30 13:11:00 18 /min [facility] Oxygen saturation in Arterial blood by Pulse oximetry 2020-08-30 13:11:00 96 /min [facility] Body weight 2020-08-30 09:00:00 107.956 kg [facility] BMI 2020-08-30 09:00:00 36.19 kg/m2 [facility] Body height 2020-08-27 07:49:00 172.7 cm [facility] Systolic blood pressure 2020-07-10 05:30:00 123 mm[Hg] [facility] Diastolic blood pressure 2020-07-10 05:30:00 77 mm[Hg] [facility] Heart rate 2020-07-10 05:30:00 75 /min [facility] Respiratory rate 2020-07-10 05:30:00 19 /min [facility] Oxygen saturation in Arterial blood by Pulse oximetry 2020-07-10 05:30:00 97 /min [facility] Body temperature 2020-07-10 00:48:00 37.39 Nano [facility] Body height 2020-07-10 00:48:00 172.7 cm [facility] Body weight 2020-07-10 00:43:00 99.791 kg [facility] BMI 2020-07-10 00:43:00 33.45 kg/m2 [facility] Systolic blood pressure 2020-07-10 05:30:00 123 mm[Hg] [facility] Diastolic blood pressure 2020-07-10 05:30:00 77 mm[Hg] [facility] Heart rate 2020-07-10 05:30:00 75 /min [facility] Respiratory rate 2020-07-10 05:30:00 19 /min [facility] Oxygen saturation in Arterial blood by Pulse oximetry 2020-07-10 05:30:00 97 /min [facility] Body temperature 2020-07-10 00:48:00 37.39 Nano [facility] Body height 2020-07-10 00:48:00 172.7 cm [facility] Body weight 2020-07-10 00:43:00 99.791 kg [facility] BMI 2020-07-10 00:43:00 33.45 kg/m2 [facility] Procedures Procedure Date / Time Performed Performing Clinician Source URINALYSIS 2024-02-04 18:16:00 [facility] ABDOMEN PELVIS W CONTRAST 2024-02-04 16:52:00 Babs Bustamante [facility] LIPASE 2024-02-04 16:00:00 [facility] COMP. METABOLIC PANEL ([id number]) 2024-02-04 16:00:00 Babs Bustamante [facility] CBC WITH DIFF 2024-02-04 16:00:00 Babs Bustamante [facility] CONSENT/REFUSAL FOR DIAGNOSIS AND TREATMENT 2023-12-28 08:06:27 Doctor Unassigned, Mary Esther [facility] EKG-12 LEAD 2023-11-06 08:26:13 Nidia Solano [facility] LIPASE 2023-11-06 06:15:00 Nidia Solano [facility] MAGNESIUM 2023-11-06 06:15:00 [facility] COMP. METABOLIC PANEL ([id number]) 2023-11-06 06:15:00 Nidia Solano [facility] CBC WITH DIFF 2023-11-06 06:15:00 Nidia Solano [facility] URINALYSIS 2023-11-06 06:15:00 Nidia Solano [facility] CONSENT/REFUSAL FOR DIAGNOSIS AND TREATMENT 2023-11-06 05:40:44 Doctor Unassigned, Mary Esther [facility] CT ABDOMEN PELVIS W CONTRAST 2023-11-01 08:32:40 Jose Francisco Walters [facility] LIPASE 2023-11-01 05:45:00 Jose Francisco Walters [facility] COMP. METABOLIC PANEL ([id number]) 2023-11-01 05:45:00 Jose Francisco Walters [facility] CBC WITH DIFF 2023-11-01 05:45:00 Jose Francisco Walters [facility] URINALYSIS 2023-11-01 05:45:00 Jose Francisco Walters [facility] POCT GLUCOSE (AUTOMATED) 2023-11-01 05:41:00 Lena Walters [facility] CONSENT/REFUSAL FOR DIAGNOSIS AND TREATMENT 2023-11-01 05:29:45 Doctor Unassigned, Mary Esther [facility] CT ABDOMEN PELVIS W CONTRAST 2023-10-23 07:06:44 Chapito Contreras [facility] LIPASE 2023-10-23 05:50:00 Chapito Contreras [facility] COMP. METABOLIC PANEL ([id number]) 2023-10-23 05:50:00 Chapito Contreras [facility] CBC WITH DIFF 2023-10-23 05:50:00 Chapito Contreras [facility] URINALYSIS 2023-10-23 05:50:00 Chapito Contreras [facility] CONSENT/REFUSAL FOR DIAGNOSIS AND TREATMENT 2023-10-23 05:34:08 Doctor Unassigned, Mary Esther [facility] URINALYSIS 2023-09-26 06:12:00 [facility] 2023-09-26 05:12:00 Jose [facility] HEPATIC FUNCTION PANEL ([id number]) (ALB,T.PRO,BILI T,BU/BC,ALT,AST,ALK PHOS) 2023-09-26 05:12:00 [facility] (NA, K, CL, CO2, GLUCOSE, BUN, CREATININE, CA) 2023-09-26 05:12:00 Jose [facility] CBC WITH DIFF 2023-09-26 05:12:00 Jose [facility] NOTICE OF PRIVACY PRACTICES 2023-09-26 04:50:48 Doctor Unassigned, Mary Esther [facility] CONSENT/REFUSAL FOR DIAGNOSIS AND TREATMENT 2023-09-26 04:50:08 Doctor Unassigned, Mary Esther [facility] CT CHEST PULMONARY ANGIOGRAM 2023-08-24 08:02:29 Patrick Vergara [facility] XR CHEST 1 VW 2023-08-24 04:38:16 Patrick Vergara [facility] TROPONIN I 2023-08-24 04:29:00 Patrick Vergara [facility] COMP. METABOLIC PANEL ([id number]) 2023-08-24 04:29:00 Patrick Vergara [facility] CBC WITH DIFF 2023-08-24 04:29:00 [facility] CONSENT/REFUSAL FOR DIAGNOSIS AND TREATMENT 2023-08-24 03:41:11 Doctor Unassigned, Mary Esther [facility] LIPASE 2023-07-07 09:22:00 Chapito Contreras [facility] TROPONIN I 2023-07-07 09:22:00 Chapito Contreras [facility] COMP. METABOLIC PANEL ([id number]) 2023-07-07 09:22:00 Chapito Contreras [facility] CBC WITH DIFF 2023-07-07 09:22:00 Chapito Contreras [facility] URINALYSIS 2023-07-07 09:22:00 Chapito Contreras [facility] CONSENT/REFUSAL FOR DIAGNOSIS AND TREATMENT 2023-07-07 08:49:51 Doctor Unassigned, Mary Esther [facility] POCT GLUCOSE (AUTOMATED) 2023-05-26 02:17:00 Nidia Solano [facility] URINALYSIS 2023-05-26 01:24:00 Nidia Solanoe [facility] POCT GLUCOSE (AUTOMATED) 2023-05-26 01:22:00 Nidia Solano [facility] TROPONIN I 2023-05-26 00:54:00 Nidia Solano [facility] COVID-19 (ID NOW RAPID TESTING) 2023-05-26 00:54:00 Nidia Solano [facility] ASSIGNMENT OF BENEFITS 2023-05-26 00:29:59 Docto r Unassigned, Mary Esther [facility] XR CHEST 1 VW 2023-05-25 22:41:21 Nidia Solano [facility] LIPASE 2023-05-25 22:33:00 Nidia Solano [facility] MAGNESIUM 2023-05-25 22:33:00 Nidia Solano [facility] TROPONIN I 2023-05-25 22:33:00 Nidia Solano [facility] COMP. METABOLIC PANEL ([id number]) 2023-05-25 22:33:00 Nidia Solano [facility] CBC WITH DIFF 2023-05-25 22:33:00 Nidia Solano [facility] N-TERMINAL PRO-BNP 2023-05-25 22:33:00 Nidia Solano [facility] CONSENT/REFUSAL FOR DIAGNOSIS AND TREATMENT 2023-05-25 22:07:05 Doctor Unassigned, Mary Esther [facility] COVID-19 (ID NOW RAPID TESTING) 2023-02-20 23:30:00 Monroe Escobar [facility] CONSENT/REFUSAL FOR DIAGNOSIS AND TREATMENT 2023-02-20 22:54:00 Doctor Unassigned, Mary Esther [facility] CT ABDOMEN PELVIS W CONTRAST 2022-12-29 08:28:18 Chapito Contreras [facility] LIPASE 2022-12-29 07:11:00 Chapito Contreras [facility] COMP. METABOLIC PANEL ([id number]) 2022-12-29 07:11:00 Chapito Contreras [facility] CBC WITH DIFF 2022-12-29 07:11:00 Chapito Contreras [facility] URINALYSIS 2022-12-29 07:11:00 Chapito Contreras [facility] CONSENT/REFUSAL FOR DIAGNOSIS AND TREATMENT 2022-12-29 06:24:27 Doctor Unassigned, Mary Esther [facility] CONSENT/REFUSAL FOR DIAGNOSIS AND TREATMENT 2022-11-21 08:05:19 Doctor Unassigned, Mary Esther [facility] RAPID STREP SCREEN FOR GROUP A 2022-10-29 07:36:00 Marie Morales [facility] CONSENT/REFUSAL FOR DIAGNOSIS AND TREATMENT 2022-10-29 07:23:03 Doctor Unassigned, Mary Esther [facility] CONSENT/REFUSAL FOR DIAGNOSIS AND TREATMENT 2022-06-02 04:34:17 Doctor Unassigned, Mary Esther [facility] FREE T4 2022-05-28 16:06:00 [facility] THYROID STIMULATING HORMONE 2022-05-28 16:06:00 Lala Clarke [facility] COMP. METABOLIC PANEL ([id number]) 2022-05-28 16:06:00 Singer Lala [facility] CBC WITH DIFF 2022-05-28 16:06:00 Lala Clarke [facility] FREE T3 2022-05-28 16:06:00 [facility] CONSENT/REFUSAL FOR DIAGNOSIS AND TREATMENT 2022-05-28 14:55:38 Doctor Unassigned, Mary Esther [facility] CT ABDOMEN PELVIS W CONTRAST 2022-05-06 06:06:56 Nidia Solano [facility] LIPASE 2022-05-06 05:17:00 Nidia Solano [facility] MAGNESIUM 2022-05-06 05:17:00 Nidia Solano [facility] TROPONIN I 2022-05-06 05:17:00 Nidia Solano [facility] COMP. METABOLIC PANEL ([id number]) 2022-05-06 05:17:00 Nidia Solano [facility] CBC WITH DIFF 2022-05-06 05:17:00 Nidia Solano [facility] URINALYSIS 2022-05-06 05:17:00 Nidia Solano [facility] RAPID INFLUENZA A/B 2022-05-06 03:48:00 Nidia Solano [facility] COVID-19 (ID NOW RAPID TESTING) 2022-05-06 03:48:00 Nidia Solano [facility] CONSENT/REFUSAL FOR DIAGNOSIS AND TREATMENT 2022-05-06 03:22:49 Doctor Unassigned, Mary Esther [facility] COMP. METABOLIC PANEL ([id number]) 2022-05-01 12:42:00 Singer Lala [facility] CBC WITH DIFF 2022-05-01 12:42:[address] [facility] CONSENT/REFUSAL FOR DIAGNOSIS AND TREATMENT 2022-05-01 12:23:44 Doctor Unassigned, Mary Esther [facility] URINALYSIS 2022-02-08 06:27:00 [facility] URINE DRUG (IMMUNOASSAY) - COMPREHENSIVE DRUG SCREEN W/O REFLEX 2022-02-08 06:27:00 Benjamin Ashford [facility] LIPASE 2022-02-08 06:15:00 Benjamin Ashford [facility] TROPONIN I 2022-02-08 06:15:00 [facility] COMP. METABOLIC PANEL ([id number]) 2022-02-08 06:15:00 Benjamin Ashford [facility] ETHANOL 2022-02-08 06:15:00 Benjamin Ashford [facility] CBC WITH DIFF 2022-02-08 06:15:00 Benjamin Ashford [facility] PROTHROMBIN TIME / INR 2022-02-08 06:15:00 Jeremy Ashford [facility] ACTIVATED PARTIAL THRMPLAS ELAINE 2022-02-08 06:15:00 Benjamin Ashford [facility] N-TERMINAL PRO-BNP 2022-02-08 06:15:00 Benjamin Ashford [facility] NOTICE OF PRIVACY PRACTICES 2022-02-08 06:01:50 Doctor Unassigned, Mary Esther [facility] CONSENT/REFUSAL FOR DIAGNOSIS AND TREATMENT 2022-02-08 05:59:20 Doctor Unassigned, Mary Esther [facility] CT ABDOMEN PELVIS W CONTRAST 2021-10-15 00:40:39 Marie Morales [facility] LIPASE 2021-10-15 00:26:00 Marie Morales [facility] TROPONIN I 2021-10-15 00:26:00 Marie Morales [facility] COMP. METABOLIC PANEL ([id number]) 2021-10-15 00:26:00 Marie Morales [facility] CBC WITH DIFF 2021-10-15 00:26:00 Marie Morales [facility] NOTICE OF PRIVACY PRACTICES 2021-10-14 22:18:20 Doctor Unassigned, Mary Esther [facility] CONSENT/REFUSAL FOR DIAGNOSIS AND TREATMENT 2021-10-14 22:17:56 Doctor Unassigned, Mary Esther [facility] CT ABDOMEN PELVIS W CONTRAST 2021-03-15 04:54:23 Chapito Contreras [facility] COVID-19 (ID NOW RAPID TESTING) 2021-03-15 03:34:00 Chapito Contreras [facility] URINALYSIS 2021-03-15 03:16:00 Chapito Contreras [facility] COMP. METABOLIC PANEL ([id number]) 2021-03-15 03:11:00 Chapito Contreras [facility] CBC WITH DIFF 2021-03-15 03:11:00 Chapito Contreras [facility] CONSENT/REFUSAL FOR DIAGNOSIS AND TREATMENT 2021-03-15 02:38:38 Doctor Unassigned, Mary Esther [facility] LIPASE 2020-09-08 23:14:00 [facility] COMP. METABOLIC PANEL ([id number]) 2020-09-08 23:14:00 Singer [facility] CBC WITH DIFF 2020-09-08 23:14:[address] [facility] CONSENT/REFUSAL FOR DIAGNOSIS AND TREATMENT 2020-09-08 22:38:49 Doctor Unassigned, Mary Esther [facility] CT ABDOMEN PELVIS W CONTRAST 2020-09-06 17:05:33 Nidia Solano [facility] LACTIC ACID WHOLE BLOOD 2020-09-06 16:31:00 Nidia Solano [facility] LIPASE 2020-09-06 16:11:00 Nidia Solano [facility] MAGNESIUM 2020-09-06 16:11:00 Nidia Solano [facility] COMP. METABOLIC PANEL ([id number]) 2020-09-06 16:11:00 Nidia Solano [facility] CBC WITH DIFF 2020-09-06 16:11:00 Nidia Solano [facility] NOTICE OF PRIVACY PRACTICES 2020-09-06 15:30:39 Doctor Unassigned, Mary Esther [facility] CONSENT/REFUSAL FOR DIAGNOSIS AND TREATMENT 2020-09-06 15:30:28 Doctor Unassigned, Mary Esther [facility] COMP. METABOLIC PANEL ([id number]) 2020-08-30 08:39:00 Babs Bustamante [facility] CBC WITH DIFF 2020-08-30 08:39:00 Babs Bustamante [facility] [facility] US ABDOMEN COMPLETE 2020-08-28 18:11:06 Patrick No [facility] ECHO ROUTINE W/DOPPLER COLOR 2020-08-28 16:34:45 Gricelda No [facility] HEPATIC FUNCTION PANEL (49011) (ALB,T.PRO,BILI T,BU/BC,ALT,AST,ALK PHOS) 2020-08-28 10:16:00 Favio Chang [facility] BASIC METABOLIC PANEL (NA, K, CL, CO2, GLUCOSE, BUN, CREATININE, CA) 2020-08-28 10:16:00 Oneal [facility] TROPONIN I 2020-08-27 18:11:00 Oneal [facility] POCT GLUCOSE (AUTOMATED) 2020-08-27 18:02:00 Clau No [facility] POCT GLUCOSE (AUTOMATED) 2020-08-27 13:49:00 Clau No [facility] TROPONIN I 2020-08-27 11:35:00 Oneal [facility] CT ABDOMEN PELVIS W WO CONTRAST 2020-08-27 07:38:49 Oneal [facility] COVID-19 (ID NOW RAPID TESTING) 2020-08-27 06:21:00 Dejon [facility] URINALYSIS 2020-08-27 06:20:00 [facility] ADC / LCC - DRUG SCREEN TRIAGE 2020-08-27 06:20:00 Dejon [facility] XR CHEST 1 VW 2020-08-27 06:05:42 Benjamin Ashford [facility] LIPASE 2020-08-27 05:58:00 [facility] TROPONIN I 2020-08-27 05:58:00 [facility] THYROID STIMULATING HORMONE 2020-08-27 05:58:00 Oneal [facility] HEPATIC FUNCTION PANEL (50096) (ALB,T.PRO,BILI T,BU/BC,ALT,AST,ALK PHOS) 2020-08-27 05:58:00 Benjamin Ashford [facility] BASIC METABOLIC PANEL (NA, K, CL, CO2, GLUCOSE, BUN, CREATININE, CA) 2020-08-27 05:58:00 Dejon [facility] LIPID PANEL (78030)(TOTAL CHOLESTEROL, TRIGLYCERIDES, HDL) 2020-08-27 05:58:00 Oneal [facility] ETHANOL 2020-08-27 05:58:00 [facility] CBC WITH DIFF 2020-08-27 05:58:00 Benjamin Ashford [facility] PROTHROMBIN TIME / INR 2020-08-27 05:58:00 Jeremy Ashford [facility] ACTIVATED PARTIAL THRMPLAS ELAINE 2020-08-27 05:58:00 Benjamin Ashford [facility] EKG-12 LEAD 2020-08-27 05:54:03 Benjamin Ashford [facility] NOTICE OF PRIVACY PRACTICES 2020-08-27 05:44:26 Doctor Unassigned, Mary Esther [facility] CONSENT/REFUSAL FOR DIAGNOSIS AND TREATMENT 2020-08-27 05:43:44 Doctor Unassigned, Mary Esther [facility] CONSENT/REFUSAL FOR DIAGNOSIS AND TREATMENT 2020-08-27 05:43:43 Doctor Unassigned, Mary Esther [facility] CT ABDOMEN PELVIS W CONTRAST 2020-07-10 05:12:21 Chapito Contreras [facility] TROPONIN I 2020-07-10 03:49:00 Chapito Contreras [facility] ADC / LCC - DRUG SCREEN TRIAGE 2020-07-10 03:13:00 Chapito Contreras [facility] XR CHEST 1 VW 2020-07-10 01:05:14 Chapito Contreras [facility] LIPASE 2020-07-10 00:55:00 Chapito Contreras [facility] TROPONIN I 2020-07-10 00:55:00 Chapito Contreras [facility] COMP. METABOLIC PANEL (15790) 2020-07-10 00:55:00 Chapito Contreras [facility] CBC WITH DIFF 2020-07-10 00:55:00 Chapito Contreras [facility] PROTHROMBIN TIME / INR 2020-07-10 00:55:00 Yesica Contreras [facility] D-DIMER 2020-07-10 00:55:00 Chapito Contreras [facility] COVID-19 (ID NOW RAPID TESTING) 2020-07-10 00:55:00 Chapito Contreras [facility] EKG-12 LEAD 2020-07-10 00:52:35 Chapito Contreras [facility] Encounters Start Date/Time End Date/Time Encounter Type Admission Type Attending [facility] Care Facility Care Department Encounter ID Source 2024-02-09 00:00:00 2024-03-13 18:08:36 Patient Secure Msg Doctor Unassigned, Mary Esther [facility] 1.2.840.114 350.1.13.10 4.2.7.2.686 [id number] [facility] 2024-02-04 10:45:00 2024-02-04 14:36:00 Emergency X BABS BUSTAMANTE [facility] [id number] [facility] 2024-02-04 10:45:00 2024-02-04 14:36:00 Emergency Babs Bustamante [facility] 1.2.840.114 350.1.13.10 4.2.7.2.686 [id number] [facility] 2023-12-28 03:16:00 2023-12-28 04:32:00 Emergency X CHAPITO CONTRERAS WAKILI [facility] E[facility] [id number] [facility] 2023-12-28 03:16:00 2023-12-28 04:32:00 Emergency Chapito Contreras [facility] 1.2.840.114 350.1.13.10 4.2.7.2.686 [id number] [facility] 2023-11-05 23:52:00 2023-11-06 02:37:00 Emergency X Nidia SOLANO K [facility] [id number] [facility] 2023-11-05 23:52:00 2023-11-06 02:37:00 Emergency Nidia Solano [facility] 1.2840.114 350.1.13.10 4.2.7.2.686 [id number] [facility] 2023-10-31 23:33:00 2023-11-01 04:19:00 Emergency X JOSE FRANCISCO WALTERS [facility] ERT [id number] [facility] 2023-10-31 23:33:00 2023-11-01 04:19:00 Emergency Jose Francisco Walters [facility] 1.2840.114 350.1.13.10 4.2.7.2.686 [id number] [facility] 2023-10-22 23:39:00 2023-10-23 02:31:00 Emergency X CHAPITO CONTRERAS [facility] E[facility] [id number] [facility] 2023-10-22 23:39:00 2023-10-23 02:31:00 Emergency Chapito Contreras Clau [facility] 1.2840.114 350.1.13.10 4.2.7.2.686 [id number] [facility] 2023-09-25 23:04:00 2023-09-26 02:30:00 Emergency X MADELINE TAM HEE-KWANG [facility] ERT [id number] [facility] 2023-09-25 23:04:00 2023-09-26 02:30:00 Emergency Madeline Tam [facility] 1.2840.114 350.1.13.10 4.2.7.2.686 [id number] [facility] 2023-08-25 00:00:00 2023-08-25 00:00:00 Patient Secure Msg Doctor Unassigned, Mary Esther [facility] 1.2840.114 350.1.13.10 4.2.7.2.686 [id number] [facility] 2023-08-23 22:43:00 2023-08-24 02:41:00 Emergency Patrick Vergara [facility] 1.2.840.114 350.1.13.10 4.2.7.2.686 [id number] [id number] [facility] 2023-08-23 22:43:00 2023-08-24 02:41:00 Emergency X PATRICK VERGARA [facility] E[facility] [id number] [facility] 2023-07-07 03:51:00 2023-07-07 05:56:00 Emergency X CHAPITO CONTRERAS [facility] E[facility] [id number] [facility] 2023-07-07 03:51:00 2023-07-07 05:56:00 Emergency Chapito Contreras [facility] 1.2.840.114 350.1.13.10 4.2.7.2.686 [id number] [id number] [facility] 2023-05-25 17:20:00 2023-05-25 22:37:00 Emergency X Nidia SOLANO [facility] E[facility] [id number] [facility] 2023-05-25 17:20:00 2023-05-25 22:37:00 Emergency Nidia Solano Haily [facility] 1.2.840.114 350.1.13.10 4.2.7.2.686 [id number] [id number] [facility] 2023-02-20 18:06:00 2023-02-20 21:03:00 Emergency X MONROE ESCOBAR MONROE [facility] ERT [id number] [facility] 2023-02-20 18:06:00 2023-02-20 21:03:00 Emergency Monroe Escobar [facility] 1.2.840.114 350.1.13.10 4.2.7.2.686 [id number] [id number] [facility] 2023-02-20 00:00:00 2023-02-20 00:00:00 Orders Only Doctor Unassigned, Mary Esther [facility] 1.2.840.114 350.1.13.10 4.2.7.2.686 [id number] [facility] 2022-12-29 00:24:00 2022-12-29 05:29:00 Emergency X CHAPITO CONTRERAS [facility] E[facility] [id number] [facility] 2022-12-29 00:24:00 2022-12-29 05:29:00 Emergency Chapito Contreras [facility] 1.2.840.114 350.1.13.10 4.2.7.2.686 [id number] [id number] [facility] 2022-11-21 02:14:00 2022-11-21 03:04:00 Emergency X PATRICK VERGARA [facility] [id number] [facility] 2022-11-21 02:14:00 2022-11-21 03:04:00 Emergency VergaraPatrick Clau [facility] 1.2.840.114 350.1.13.10 4.2.7.2.686 [id number] [id number] [facility] 2022-10-29 01:37:00 2022-10-29 02:25:00 Emergency X MARIE MORALES [facility] E[facility] [id number] [facility] 2022-10-29 01:37:00 2022-10-29 02:25:00 Emergency Marie Morales [facility] 1..840.114 350.1.13.10 4.2.7.2.686 [id number] [id number] [facility] 2022-06-01 23:34:00 2022-06-02 00:39:00 Emergency X LALA CLARKE [facility] [id number] [facility] 2022-06-01 23:34:00 2022-06-02 00:39:00 Emergency Lala Clarke [facility] 1.2.840.114 350.1.13.10 4.2.7.2.686 [id number] [facility] 2022-05-28 11:00:00 2022-05-28 13:39:00 Emergency X LALA CLARKE [facility] E[facility] [id number] [facility] 2022-05-28 11:00:00 2022-05-28 13:39:00 Emergency Lala Clarke [facility] 1.2.840.114 350.1.13.10 4.2.7.2.686 [id number] [facility] 2022-05-05 22:33:00 2022-05-06 01:49:00 Emergency X Nidia SOLANO [facility] E[facility] [id number] [facility] 2022-05-05 22:33:00 2022-05-06 01:49:00 Emergency Nidia Solano Haily [facility] 1.2.840.114 350.1.13.10 4.2.7.2.686 [id number] [id number] [facility] 2022-05-01 07:33:00 2022-05-01 09:07:00 Emergency X LALA CLARKE [facility] [id number] [facility] 2022-05-01 07:33:00 2022-05-01 09:07:00 Emergency Lala Clarke [facility] 1.2.840.114 350.1.13.10 4.2.7.2.686 [id number] [facility] 2022-02-08 01:00:00 2022-02-08 03:03:00 Emergency X DEJON BENJAMIN [facility] ERT [id number] [facility] 2022-02-08 01:00:00 2022-02-08 03:03:00 Emergency Benjamin Ashford [facility] 1.2.840.114 350.1.13.10 4.2.7.2.686 [id number] [id number] [facility] 2021-10-14 16:40:00 2021-10-14 19:30:00 Emergency MARIE CHATTERJEE [facility] E[facility] [id number] [facility] 2021-10-14 16:40:00 2021-10-14 19:30:00 Emergency Marie Morales [facility] 1.2.840.114 350.1.13.10 4.2.7.2.686 [id number] [id number] [facility] 2021-05-15 12:11:58 2021-05-15 23:59:00 Hospital Encounter Geoff Cardona [facility] 1.2.840.114 350.1.13.10 4.2.7.2.686 [id number] [facility] 2021-05-15 12:30:00 2021-05-15 12:30:00 Outpatient R GEOFF CARDONA [facility] [id number] [facility] 2021-05-08 12:30:00 2021-05-08 23:59:00 Hospital Encounter Kiki Mathur [facility] 1.2.840.114 350.1.13.10 4.2.7.2.686 [id number] [facility] 2021-05-08 12:30:00 2021-05-08 12:30:00 Outpatient R KIKI MATHUR [facility] [id number] [facility] 2021-05-06 03:01:00 2021-05-06 04:28:00 Emergency Clarke Lala [facility] 1.2.840.114 350.1.13.10 4.2.7.2.686 [id number] [id number] [facility] 2021-05-06 03:01:00 2021-05-06 04:28:00 Emergency LALA MEDRANO [facility] ERT [id number] [facility] 2021-03-14 21:49:00 2021-03-15 01:22:00 Emergency Chapito Contreras [facility] 1.2.840.114 350.1.13.10 4.2.7.2.686 [id number] [facility] 2021-03-14 21:49:00 2021-03-15 01:22:00 Emergency Chapito Contreras [facility] 1.2.840.114 350.1.13.10 4.2.7.2.686 [id number] 2021-03-14 21:49:00 2021-03-14 21:49:00 Emergency CHAPITO VELASQUEZ [facility] ERT [id number] [facility] 2020-09-08 16:52:00 2020-09-08 18:13:00 Emergency Lala Clarke [facility] 1.2.840.114 350.1.13.10 4.2.7.2.686 [id number] [id number] [facility] 2020-09-08 16:52:00 2020-09-08 18:13:00 Emergency Lala Clarke [facility] 1.2.840.114 350.1.13.10 4.2.7.2.686 [id number] 2020-09-08 16:52:00 2020-09-08 16:52:00 Emergency LALA MEDRANO [facility] E[facility] [id number] [facility] 2020-09-06 09:52:00 2020-09-06 13:38:00 Emergency Nidia Solano [facility] 1.2.840.114 350.1.13.10 4.2.7.2.686 [id number] [id number] [facility] 2020-09-06 09:52:00 2020-09-06 13:38:00 Emergency Nidia Solano [facility] 1.2.840.114 350.1.13.10 4.2.7.2.686 [id number] 2020-09-06 09:52:00 2020-09-06 09:52:00 Emergency X [facility] E[facility] [id number] [facility] 2020-09-06 00:00:00 2020-09-06 00:00:00 Orders Only Doctor Unassigned, Mary Esther [facility] 1.2.840.114 350.1.13.10 4.2.7.2.686 [id number] [facility] 2020-09-06 00:00:00 2020-09-06 00:00:00 Orders Only Doctor Unassigned, Mary Esther [facility] 1.2.840.114 350.1.13.10 4.2.7.2.686 [id number] 2020-08-26 23:45:00 2020-08-30 08:05:00 Emergency Benjamin Ashford [facility] 1.2.840.114 350.1.13.10 4.2.7.2.686 [id number] [facility] 2020-08-26 23:45:00 2020-08-30 08:05:00 Emergency Benjamin Ashford [facility] 1.2.840.114 350.1.13.10 4.2.7.2.686 [id number] [id number] 2020-08-26 23:43:00 2020-08-26 23:43:00 Emergency X [facility] [id number] [facility] 2020-07-09 19:41:00 2020-07-10 00:40:00 Emergency Chapito Contreras [facility] 1.2.840.114 350.1.13.10 4.2.7.2.686 [id number] [facility] 2020-07-09 19:41:00 2020-07-10 00:40:00 Emergency Chapito Contreras [facility] 1.2.840.114 350.1.13.10 4.2.7.2.686 [id number] 2020-07-09 19:41:00 2020-07-09 19:41:00 Emergency X CHAPITO CONTRERAS [facility] E[facility] [id number] [facility] 2005-04-01 12:20:00 2005-04-01 20:14:00 Emergency X MARIBELL CEDILLO [facility] ERT [id number] [facility] Results Test Description Test Time [...] clinically for any signs and symptomsof [facility]stitis. [facility] Qdqyn7986-70-45 17:02:35* Test Item Value Reference Range Interpretation Comme nts NA (test code = 6442354063) 139 mmol/L 135-145 K (test code = 4897739669) 4.4 mmol/L 3.5-5.0 CL (test code = 2163143172) 101 mmol/L 98-108 CO2 TOTAL (test code = 3604421292) 31 mmol/L 23-31 AGAP (test code = 4599730034) 7 2-16 BUN (test code = 0323824093) 12 mg/dL 7-23 GLUCOSE (test code = 1692755180) 100 mg/dL 70-110 CREATININE (test code = 2160-0) 0.61 mg/dL 0.60-1.25 TOTAL BILI (test code = 4060113518) 0.5 mg/dL 0.1-1.1 CALCIUM (test code = 6135676577) 9.8 mg/dL 8.6-10.6 T PROTEIN (test code = 4310359505) 8.4 g/dL 6.3-8.2 H ALBUMIN (test code = 1902553296) 4.7 g/dL 3.5-5.0 ALK PHOS (test code = 1721581090) 84 U/L 34-122 ALTv (test code = 1742-6) 23 U/L 5-50 AST(SGOT) (test code = 8041600875) 25 U/L 13-40 eGFR (test code = 37232-9) 120.0 mL/min/1.73m2 CKD-EPI eGFR (2020). Assuming creatinine has been stable day-to-day for at least three months, the eGFR indicates Category G1 (>= 90 mL/min/1.73 m2) Lab Interpretation (test code = 61320-5) [facility] Ca[facility]50[facility]79-68 17:01:54* Test Item Value Reference Range Interpretation Comme nts LIPASE (test code = 8996354364) 42 U/L 0-220 Lab Interpretation (test cod e = 35838-9) Normal [facility] 07:16:16* Test Item Value Reference Range Interpretation Comme nts MAGNESIUM (test code = 9322968822) 2.2 mg/dL 1.7-2.4 Lab Interpretation (test cod e = 55982-5) Normal [facility] (78320)2023-11-06 07:16:15* Test Item Value Reference Range Interpretation Comme nts NA (test code = 8790708264) 138 mmol/L 135-145 K (test code = 2005598763) 3.5 mmol/L 3.5-5.0 CL (test code = 9315090978) 106 mmol/L 98-108 CO2 TOTAL (test code = 4913158085) 23 mmol/L 23-31 AGAP (test code = 5059534469) 9 2-16 BUN (test code = 0685004430) 18 mg/dL 7-23 GLUCOSE (test code = 3831280581) 110 mg/dL 70-110 CREATININE (test code = 1397302083) 0.73 mg/dL 0.60-1.25 TOTAL BILI (test code = 7325985620) 0.4 mg/dL 0.1-1.1 CALCIUM (test code = 1476278030) 9.4 mg/dL 8.6-10.6 T PROTEIN (test code = 5080422567) 8.5 g/dL 6.3-8.2 H ALBUMIN (test code = 3972881645) 4.8 g/dL 3.5-5.0 ALK PHOS (test code = 6743432875) 78 U/L 34-122 ALTv (test code = 1742-6) 42 U/L 5-50 AST(SGOT) (test code = 7927570284) 43 U/L 13-40 H eGFR (test code = 58054-5) 113.6 mL/min/1.73m2 CKD-EPI eGFR (2020). Assuming creatinine has been stable day-to-day for at least three months, the eGFR indicates Category G1 (>= 90 mL/min/1.73 m2) Lab Interpretation (test code = 31723-8) [facility]normal [facility] 07:16:15* Test Item Value Reference Range Interpretation Comme nts LIPASE (test code = 3592934498) 118 U/L 0-220 Lab Interpretation (test cod e = 48447-7) Normal [facility] with Unit5332-05-75 06:49:12* Test Item Value Reference Range Interpretation Comme nts WBC (test code = 6690-2) 11.36 See_Comment H [Automated CoinJara ge] The system which generated this result [...] 33.5 g/dL 31.2-35.0 RDW-SD (test code = 71268-2) 46.4 fL 38.5-51.6 RDW-CV (test code = 788-0) 13.7 % 12.1-15.4 PLT (test code = 777-3) 323 See_Comment [Automated messa ge] The system which generated this result transmitted reference range: 150 - 328 10*3/?L. The reference range was not used to interpret this result as normal/abnormal. MPV (test code = 66615-7) 9.8 fL 9.8-13.0 NRBC/100 WBC (test code = 4230932784) 0.0 See_Comment [Automated me ssage] The system which generated this result transmitted reference range: 0.0 - 10.0 /100 WBCs. The reference range was not used to interpret this result as normal/abnormal. NRBC x10^3 (test code = 4574753847) See_Comment [Automated messa ge] The system which generated this result transmitted reference range: 10*3/?L. The reference range was not used to interpret this result as normal/abnormal. GRAN MAT (NEUT) % (test code = 770-8) 56.1 % IMM GRAN % (test code = 0817659576) 0.50 % LYMPH % (test code = 736-9) 34.8 % MONO % (test code = 5905-5) 6.3 % EOS % (test code = 713-8) 1.4 % BASO % (test code = 706-2) 0.9 % GRAN MAT x10^3(ANC) (test code = 7527982088) 6.38 10*3/uL 1.99-6.95 IMM GRAN x10^3 (test code = 5108467857) 0.06 10*3/uL 0.00-0.06 LYMPH x10^3 (test code = 731-0) 3.95 10*3/uL 1.09-3.23 H MONO x10^3 (test code = 742-7) 0.71 10*3/uL 0.36-1.02 EOS x10^3 (test code = 711-2) 0.16 10*3/uL 0.06-0.53 BASO x10^3 (test code = 704-7) 0.10 10*3/uL 0.01-0.09 H Lab Interpretation (test code = 35191-8) [facility] W LVAQYFDA3422-40-61 09:00:37Ordering physician: JOSE FRANCISCO WALTERS Indication: Acute [...] abdomen andpelvis demonstrate no osseous destructive lesion. [facility] Ybxxc1216-16-46 06:29:13* Test Item Value Reference Range Interpretation Comme nts NA (test code = 0269179678) 138 mmol/L 135-145 K (test code = 9756566843) 3.8 mmol/L 3.5-5.0 CL (test code = 0480573811) 106 mmol/L 98-108 CO2 TOTAL (test code = 1427103677) 21 mmol/L 23-31 L AGAP (test code = 5000296891) 11 2-16 BUN (test code = 2969298287) 13 mg/dL 7-23 GLUCOSE (test code = 8196903835) 113 mg/dL 70-110 H CREATININE (test code = 0939237550) 0.63 mg/dL 0.60-1.25 TOTAL BILI (test code = 6834243350) 0.7 mg/dL 0.1-1.1 CALCIUM (test code = 3355432365) 9.6 mg/dL 8.6-10.6 T PROTEIN (test code = 7062542422) 9.0 g/dL 6.3-8.2 H ALBUMIN (test code = 6858636916) 5.0 g/dL 3.5-5.0 ALK PHOS (test code = 3009006085) 73 U/L 34-122 ALTv (test code = 1742-6) 33 U/L 5-50 AST(SGOT) (test code = 6792030250) 33 U/L 13-40 eGFR (test code = 64529-8) 118.8 mL/min/1.73m2 CKD-EPI eGFR (2020). Assuming creatinine has been stable day-to-day for at least three months, the eGFR indicates Category G1 (>= 90 mL/min/1.73 m2) Lab Interpretation (test code = 79817-3) [facility]normal [facility], Ervpz5449-82-94 06:29:13* Test Item Value Reference Range Interpretation Comme nts LIPASE (test code = 7773686538) 89 U/L 0-220 Lab Interpretation (test cod e = 89080-1) Normal [facility] with Rqbzyumsocmt6932-33-09 06:17:56* Test Item Value Reference Range Interpretation [...] 33.9 g/dL 31.2-35.0 RDW-SD (test code = 37117-1) 46.6 fL 38.5-51.6 RDW-CV (test code = 788-0) 14.0 % 12.1-15.4 PLT (test code = 777-3) 312 See_Comment [Automated messa ge] The system which generated this result transmitted reference range: 150 - 328 10*3/?L. The reference range was not used to interpret this result as normal/abnormal. MPV (test code = 45186-0) 9.7 fL 9.8-13.0 L NRBC/100 WBC (test code = 3968523295) 0.0 See_Comment [Automated me ssage] The system which generated this result transmitted reference range: 0.0 - 10.0 /100 WBCs. The reference range was not used to interpret this result as normal/abnormal. NRBC x10^3 (test code = 1244234501) See_Comment [Automated messa ge] The system which generated this result transmitted reference range: 10*3/?L. The reference range was not used to interpret this result as normal/abnormal. GRAN MAT (NEUT) % (test code = 770-8) 54.9 % IMM GRAN % (test code = 4653253548) 0.30 % LYMPH % (test code = 736-9) 36.0 % MONO % (test code = 5905-5) 6.3 % EOS % (test code = 713-8) 1.6 % BASO % (test code = 706-2) 0.9 % GRAN MAT x10^3(ANC) (test code = 7677408227) 6.35 10*3/uL 1.99-6.95 IMM GRAN x10^3 (test code = 0419465922) 0.03 10*3/uL 0.00-0.06 LYMPH x10^3 (test code = 731-0) 4.15 10*3/uL 1.09-3.23 H MONO x10^3 (test code = 742-7) 0.73 10*3/uL 0.36-1.02 EOS x10^3 (test code = 711-2) 0.18 10*3/uL 0.06-0.53 BASO x10^3 (test code = 704-7) 0.10 10*3/uL 0.01-0.09 H Lab Interpretation (test code = 84683-9) Abnormal [facility] GLUCOSE (AUTOMATED)2023-11-01 05:42:28* Test Item Value Reference Range Interpretation Comme nts POCT GLU (test code = 2762921895) 110 mg/dL 70-110 Lab Interpretation (test cod e = 68146-0) Normal [facility] ABDOMEN PELVIS W [id number] 07:44:05Ordering physician: CHAPITO CONTRERAS Indication: Acute right [...] lesion. 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 The reference range was not used to interpret this result as normal/abnormal. RBC (test code = 789-8) 5.23 See_Comment [Automated JANZZ] The system which generated this result transmitted [...] 33.9 g/dL 31.2-35.0 RDW-SD (test code = 75092-1) 45.0 fL 38.5-51.6 RDW-CV (test code = 788-0) 13.6 % 12.1-15.4 PLT (test code = 777-3) 307 See_Comment [Automated messa ge] The system which generated this result transmitted reference range: 150 - 328 10*3/?L. The reference range was not used to interpret this result as normal/abnormal. MPV (test code = 53252-4) 9.3 fL 9.8-13.0 L NRBC/100 WBC (test code = 3109373298) 0.0 See_Comment [Automated [employer] ss[employer]] The system which generated this result transmitted reference range: 0.0 - 10.0 /100 WBCs. The reference range was not used to interpret this result as normal/abnormal. NRBC x10^3 (test code = 4044365879) See_Comment [Automated messa ge] The system which generated this result transmitted reference range: 10*3/?L. The reference range was not used to interpret this result as normal/abnormal. SEG % (test code = 24258-7) 49 % 33-76 LYMPH % (test code = 34429-6) 40 % 14-54 MONO % (test code = 28473-6) 4 % 0-4 EOS % (test code = 61055-3) 7 % 0-3 H ANC (test code = 753-4) 5.81 10*3/uL 1.99-6.95 Lab Interpretation (test code = 31373-3) [facility] [id number] 06:32:13* Test Item Value Reference Range Interpretation Comme nts NA (test code = 0637057054) 140 mmol/L 135-145 K (test code = 9307442422) 3.7 mmol/L 3.5-5.0 CL (test code = 7795096271) 105 mmol/L 98-108 CO2 TOTAL (test code = 7879798422) 23 mmol/L 23-31 AGAP (test code = 4764611950) 12 2-16 BUN (test code = 9227455143) 15 mg/dL 7-23 GLUCOSE (test code = 3227946108) 126 mg/dL 70-110 H CREATININE (test code = 5402476605) 0.89 mg/dL 0.60-1.25 TOTAL BILI (test code = 7807278033) 0.6 mg/dL 0.1-1.1 CALCIUM (test code = 2854071764) 9.5 mg/dL 8.6-10.6 T PROTEIN (test code = 7159843393) 8.6 g/dL 6.3-8.2 H ALBUMIN (test code = 9457584398) 4.7 g/dL 3.5-5.0 ALK PHOS (test code = 3792073526) 84 U/L 34-122 ALTv (test code = 1742-6) 38 U/L 5-50 AST(SGOT) (test code = 8014563570) 33 U/L 13-40 eGFR (test code = 16851-0) 107.0 mL/min/1.73m2 CKD-EPI eGFR (2020). Assuming creatinine has been stable day-to-day for at least three months, the eGFR indicates Category G1 (>= 90 mL/min/1.73 m2) Lab Interpretation (test code = 85602-4) [facility] Center[facility], [id number] 06:31:52* Test Item Value Reference Range Interpretation Comme nts LIPASE (test code = 6441489567) 80 U/L 0-220 Lab Interpretation (test cod e = 51224-9) Normal [facility] Center[facility]OL[facility] (NA, K, CL, CO2, GLUCOSE, BUN, CREATININE, CA)2023-09-26 06:00:26* Test Item Value Reference Range Interpretation Comme nts NA (test code = 7959185411) 139 mmol/L 135-145 K (test code = 1319713400) 3.9 mmol/L 3.5-5.0 CL (test code = 0401726020) 104 mmol/L 98-108 CO2 TOTAL (test code = 7710849008) 25 mmol/L 23-31 AGAP (test code = 2592273770) 10 2-16 BUN (test code = 0447356940) 14 mg/dL 7-23 GLUCOSE (test code = 2968554002) 109 mg/dL 70-110 CREATININE (test code = 4061386526) 0.77 mg/dL 0.60-1.25 CALCIUM (test code = 9737998783) 10.4 mg/dL 8.6-10.6 eGFR (test code = 19125-1) 112.5 mL/min/1.73m2 CKD-EPI eGFR (20 21). Assuming creatinine has been stable day-to-day for at least three months, the eGFR indicates Category G1 (>= 90 mL/min/1.73 m2) [facility] CenterHEPAT[facility] FUNCTION PAN[facility] (45749[facility] (ALB,T.PRO,BILI T,BU/BC,ALT,AST,ALK PHOS)2023-09-26 06:00:26* Test Item Value Reference Range Interpretation Comme nts TOTAL BILI (test code = 7309848861) 0.6 mg/dL 0.1-1.1 BILI UNCON (test code = 8519018133) 0.4 mg/dL 0.1-1.1 BILI CONJ (test code = 7345622521) 0.0 mg/dL 0.0-0.3 T PROTEIN (test code = 0633746252) 8.6 g/dL 6.3-8.2 H ALBUMIN (test code = 5546326510) 4.7 g/dL 3.5-5.0 ALK PHOS (test code = 8814576172) 91 U/L 34-122 ALTv (test code = 1742-6) 40 U/L 5-50 AST(SGOT) (test code = 1444804711) 27 U/L 13-40 Lab Interpretation (test cod e = 81621-2) [facility] 06:00:25* Test Item Value Reference Range Interpretation Comme nts LIPASE (test code = 6324799320) 73 U/L 0-220 Lab Interpretation (test cod e = 52959-8) Normal [facility] CenterCBC WITH [id number] 05:50:26* Test Item Value Reference Range Interpretation Comme nts WBC (test code = 6690-2) 10.08 See_Comment [Automated messa ge] The system which [...] 33.8 g/dL 31.2-35.0 RDW-SD (test code = 43735-3) 44.0 fL 38.5-51.6 RDW-CV (test code = 788-0) 13.1 % 12.1-15.4 PLT (test code = 777-3) 317 See_Comment [Automated [employer] ge] The system which generated this result transmitted reference range: 150 - 328 10*3/?L. The reference range was not used to interpret this result as normal/abnormal. MPV (test code = 71765-9) 9.6 fL 9.8-13.0 L NRBC/100 WBC (test code = 8862107559) 0.0 See_Comment [Automated [employer] ssage] The system which generated this result transmitted reference range: 0.0 - 10.0 /100 WBCs. The reference range was not used to interpret this result as normal/abnormal. NRBC x10^3 (test code = 0044773543) See_Comment [Automated [employer] ge] The system which generated this result transmitted reference range: 10*3/?L. The reference range was not used to interpret this result as normal/abnormal. GRAN MAT (NEUT) % (test code = 770-8) 50.9 % IMM GRAN % (test code = 3172695134) 0.30 % LYMPH % (test code = 736-9) 38.3 % MONO % (test code = 5905-5) 7.5 % EOS % (test code = 713-8) 2.2 % BASO % (test code = 706-2) 0.8 % GRAN MAT x10^3(ANC) (test code = 8710840340) 5.13 10*3/uL 1.99-6.95 IMM GRAN x10^3 (test code = 0912996135) 0.03 10*3/uL 0.00-0.06 LYMPH x10^3 (test code = 731-0) 3.86 10*3/uL 1.09-3.23 H MONO x10^3 (test code = 742-7) 0.76 10*3/uL 0.36-1.02 EOS x10^3 (test code = 711-2) 0.22 10*3/uL 0.06-0.53 BASO x10^3 (test code = 704-7) 0.08 10*3/uL 0.01-0.09 Lab Interpretation (test code = 00667-7) [facility]normal [facility] CenterTROPONIN [id number] 05:30:49* Test Item Value Reference Range Interpretation Comme nts TROPONIN I (test code = 6685311788) 0.001 ng/mL <=0.034 LAURIE (test code = [...] of biotin. Lab Interpretation (test code = 92920-2) Normal [facility] CenterCOMP. METABOLIC PANEL (42293)2023-08-24 05:19:05* Test Item Value Reference Range Interpretation Comme nts NA (test code = 5223486391) 138 mmol/L 135-145 K (test code = 1077237210) 4.3 mmol/L 3.5-5.0 CL (test code = 1541570047) 100 mmol/L 98-108 CO2 TOTAL (test code = 2256019245) 25 mmol/L 23-31 AGAP (test code = 2154826981) 13 2-16 BUN (test code = 0537197423) 15 mg/dL 7-23 GLUCOSE (test code = 9248932962) 198 mg/dL 70-110 H CREATININE (test code = 2726227487) 0.86 mg/dL 0.60-1.25 TOTAL BILI (test code = 4089787162) 0.3 mg/dL 0.1-1.1 CALCIUM (test code = 7031473103) 10.3 mg/dL 8.6-10.6 T PROTEIN (test code = 9691021269) 8.6 g/dL 6.3-8.2 H ALBUMIN (test code = 9360141760) 4.5 g/dL 3.5-5.0 ALK PHOS (test code = 0026931172) 94 U/L 34-122 ALTv (test code = 1742-6) 44 U/L 5-50 AST(SGOT) (test code = 1372470132) 28 U/L 13-40 eGFR (test code = 63485-9) 108.8 mL/min/1.73m2 CKD-EPI eGFR (2020). Assuming creatinine has been stable day-to-day for at least three months, the eGFR indicates Category G1 (>= 90 mL/min/1.73 m2) Lab Interpretation (test code = 86926-6) Abnormal [facility] WITH [id number] 05:01:26* Test Item Value Reference Range Interpretation Comme nts WBC (test code = 6690-2) 10.38 See_Comment [Automated JANZZ] The system which generated this result transmitted reference range: 4.20 - 10.70 10*3/?L. The reference range was not used to interpret this result as normal/abnormal. RBC (test code = 789-8) 5.08 See_Comment [Automated JANZZ] The system which generated this result transmitted [...] 33.5 g/dL 31.2-35.0 RDW-SD (test code = 47133-6) 43.8 fL 38.5-51.6 RDW-CV (test code = 788-0) 13.0 % 12.1-15.4 PLT (test code = 777-3) 298 See_Comment [Automated messa ge] The system which generated this result transmitted reference range: 150 - 328 10*3/?L. The reference range was not used to interpret this result as normal/abnormal. MPV (test code = 73655-3) 10.0 fL 9.8-13.0 NRBC/100 WBC (test code = 6947201709) 0.0 See_Comment [Automated [employer] ssage] The system which generated this result transmitted reference range: 0.0 - 10.0 /100 WBCs. The reference range was not used to interpret this result as normal/abnormal. NRBC x10^3 (test code = 2969292723) See_Comment [Automated messa ge] The system which generated this result transmitted reference range: 10*3/?L. The reference range was not used to interpret this result as normal/abnormal. GRAN MAT (NEUT) % (test code = 770-8) 52.4 % IMM GRAN % (test code = 0326334542) 0.30 % LYMPH % (test code = 736-9) 36.6 % MONO % (test code = 5905-5) 7.2 % EOS % (test code = 713-8) 2.6 % BASO % (test code = 706-2) 0.9 % GRAN MAT x10^3(ANC) (test code = 8950513628) 5.44 10*3/uL 1.99-6.95 IMM GRAN x10^3 (test code = 1406301716) 0.03 10*3/uL 0.00-0.06 LYMPH x10^3 (test code = 731-0) 3.80 10*3/uL 1.09-3.23 H MONO x10^3 (test code = 742-7) 0.75 10*3/uL 0.36-1.02 EOS x10^3 (test code = 711-2) 0.27 10*3/uL 0.06-0.53 BASO x10^3 (test code = 704-7) 0.09 10*3/uL 0.01-0.09 Lab Interpretation (test code = 23027-7) Abnormal [facility] GLUCOSE (AUTOMATED)2023-05-26 02:18:34* Test Item Value Reference Range Interpretation Comme nts POCT GLU (test code = 1005985514) 173 mg/dL 70-110 H Lab Interpretation (test cod e = 22598-3) Abnormal [facility] GLUCOSE(AGE >30DAYS)2023-05-26 02:17:00* Test Item Value Reference Range Interpretation Comme nts POCT Glu (age>30days) (test code = 3342) 173 mg/dL 70-110 A Lab Interpretation (test cod e = 71790-3) [facility]normal [facility] CenterTROP[facility]IN [id number] 01:41:57* Test Item Value Reference Range Interpretation Comme nts TROPONIN I (test code = 9130070989) 0.008 ng/mL <=0.034 LAURIE (test code = [...] of biotin. Lab Interpretation (test code = 92265-7) Normal [facility] GLUCOSE (AUTOMATED)2023-05-26 01:23:43* Test Item Value Reference Range Interpretation Comme nts POCT GLU (test code = 0958379873) 185 mg/dL 70-110 H Lab Interpretation (test cod e = 66269-1) [facility]normal [facility] CenterN-[facility]MINAL [id number]-[id number] 00:40:36* Test Item Value Reference Range Interpretation Comme nts NT-proBNP (test code = 44696-3) <=125 Lab Interpretation (test cod e = 02431-7) Normal [facility]TR[facility] [id number] 00:06:55* Test Item Value Reference Range Interpretation Comme nts TROPONIN I (test code = 2183922371) 0.003 ng/mL <=0.034 LAURIE (test code = [...] of biotin. Lab Interpretation (test code = 04336-2) Normal [facility]MAGN[facility]IUM2023-08-06 23:56:12* Test Item Value Reference Range Interpretation Comme nts MAGNESIUM (test code = 8709145244) 2.0 mg/dL 1.7-2.4 Lab Interpretation (test cod e = 88798-8) Normal [facility]OL[facility] (12008)2023-05-25 23:55:52* Test Item Value Reference Range Interpretation Comme nts NA (test code = 0774683982) 138 mmol/L 135-145 K (test code = 4980849804) 4.3 mmol/L 3.5-5.0 CL (test code = 7396584101) 103 mmol/L 98-108 CO2 TOTAL (test code = 0020764902) 22 mmol/L 23-31 L AGAP (test code = 9267334830) 13 2-16 BUN (test code = 0914270246) 22 mg/dL 7-23 GLUCOSE (test code = 1391697792) 274 mg/dL 70-110 H CREATININE (test code = 3329774360) 0.79 mg/dL 0.60-1.25 TOTAL BILI (test code = 7260732074) 0.6 mg/dL 0.1-1.1 CALCIUM (test code = 9944341832) 9.2 mg/dL 8.6-10.6 T PROTEIN (test code = 4698969419) 8.4 g/dL 6.3-8.2 H ALBUMIN (test code = 8256269570) 4.5 g/dL 3.5-5.0 ALK PHOS (test code = 7075891438) 88 U/L 34-122 ALTv (test code = 1742-6) 48 U/L 5-50 AST(SGOT) (test code = 7048710285) 37 U/L 13-40 eGFR (test code = 7636857214) 106.1 mL/min/1.73m2 LAURIE (test code = LAURIE) [...] imaging tests). Lab Interpretation (test code = 64100-0) [facility] 23:55:32* Test Item Value Reference Range Interpretation Comme nts LIPASE (test code = 4212765424) 154 U/L 0-220 Lab Interpretation (test cod e = 15197-5) Normal [facility] CenterCB WITH [id number] 23:33:34* Test Item Value Reference Range Interpretation Comme nts WBC (test code = 6690-2) 9.32 See_Comment [Automated [employer] ge] The system which generated this result transmitted reference range: 4.20 - 10.70 10*3/?L. The reference range was not used to interpret this result as normal/abnormal. RBC (test code = 789-8) 4.89 See_Comment [Automated [employer] ge] The system which generated this result [...] 33.7 g/dL 31.2-35.0 RDW-SD (test code = 36238-2) 45.4 fL 38.5-51.6 RDW-CV (test code = 788-0) 13.4 % 12.1-15.4 PLT (test code = 777-3) 286 See_Comment [Automated messa ge] The system which generated this result transmitted reference range: 150 - 328 10*3/?L. The reference range was not used to interpret this result as normal/abnormal. MPV (test code = 12277-0) 10.2 fL 9.8-13.0 NRBC/100 WBC (test code = 4863553610) 0.0 See_Comment [Automated [employer] ssage] The system which generated this result transmitted reference range: 0.0 - 10.0 /100 WBCs. The reference range was not used to interpret this result as normal/abnormal. NRBC x10^3 (test code = 6969697251) See_Comment [Automated me ssage] The system which generated this result transmitted reference range: 10*3/?L. The reference range was not used to interpret this result as normal/abnormal. GRAN MAT (NEUT) % (test code = 770-8) 57.3 % IMM GRAN % (test code = 3003507288) 0.40 % LYMPH % (test code = 736-9) 32.6 % MONO % (test code = 5905-5) 6.8 % EOS % (test code = 713-8) 1.9 % BASO % (test code = 706-2) 1.0 % GRAN MAT x10^3(ANC) (test code = 9057715232) 5.34 10*3/uL 1.99-6.95 IMM GRAN x10^3 (test code = 7861515513) 0.04 10*3/uL 0.00-0.06 LYMPH x10^3 (test code = 731-0) 3.04 10*3/uL 1.09-3.23 MONO x10^3 (test code = 742-7) 0.63 10*3/uL 0.36-1.02 EOS x10^3 (test code = 711-2) 0.18 10*3/uL 0.06-0.53 BASO x10^3 (test code = 704-7) 0.09 10*3/uL 0.01-0.09 [facility] with Zenixofckxhq2308-85-71 07:42:13* Test Item Value Reference Range Interpretation [...] 33.3 g/dL 31.2-35.0 RDW-SD (test code = 80405-5) 44.4 fL 38.5-51.6 RDW-CV (test code = 788-0) 13.6 % 12.1-15.4 PLT (test code = 777-3) 187 See_Comment [Automated [employer] ge] The system which generated this result transmitted reference range: 150 - 328 10*3/?L. The reference range was not used to interpret this result as normal/abnormal. MPV (test code = 07525-0) 10.4 fL 9.8-13.0 NRBC/100 WBC (test code = 6386877362) 0.0 See_Comment [Automated [employer] ssage] The system which generated this result transmitted reference range: 0.0 - 10.0 /100 WBCs. The reference range was not used to interpret this result as normal/abnormal. NRBC x10^3 (test code = 2809506792) See_Comment [Automated [employer] ge] The system which generated this result transmitted reference range: 10*3/?L. The reference range was not used to interpret this result as normal/abnormal. GRAN MAT (NEUT) % (test code = 770-8) 55.0 % IMM GRAN % (test code = 7934906242) 0.50 % LYMPH % (test code = 736-9) 34.8 % MONO % (test code = 5905-5) 6.5 % EOS % (test code = 713-8) 2.5 % BASO % (test code = 706-2) 0.7 % GRAN MAT x10^3(ANC) (test code = 2803834364) 5.95 10*3/uL 1.99-6.95 IMM GRAN x10^3 (test code = 5719269110) 0.05 10*3/uL 0.00-0.06 LYMPH x10^3 (test code = 731-0) 3.77 10*3/uL 1.09-3.23 H MONO x10^3 (test code = 742-7) 0.70 10*3/uL 0.36-1.02 EOS x10^3 (test code = 711-2) 0.27 10*3/uL 0.06-0.53 BASO x10^3 (test code = 704-7) 0.08 10*3/uL 0.01-0.09 Lab Interpretation (test code = 53699-4) [facility]abolic Pqhki8522-54-35 07:32:47* Test Item Value Reference Range Interpretation Comme nts NA (test code = 1193083771) 136 mmol/L 135-145 K (test code = 5294468400) 4.2 mmol/L 3.5-5.0 CL (test code = 3220003303) 104 mmol/L 98-108 CO2 TOTAL (test code = 0519896546) 21 mmol/L 23-31 L AGAP (test code = 5900421195) 11 2-16 BUN (test code = 4423933017) 17 mg/dL 7-23 GLUCOSE (test code = 1621973408) 125 mg/dL 70-110 H CREATININE (test code = 9554905891) 0.63 mg/dL 0.60-1.25 TOTAL BILI (test code = 7456953804) 0.3 mg/dL 0.1-1.1 CALCIUM (test code = 0087612711) 9.3 mg/dL 8.6-10.6 T PROTEIN (test code = 0885888102) 7.8 g/dL 6.3-8.2 ALBUMIN (test code = 6597367853) 4.5 g/dL 3.5-5.0 ALK PHOS (test code = 9981971368) 97 U/L 34-122 ALTv (test code = 1742-6) 42 U/L 5-50 AST(SGOT) (test code = 9224009941) 34 U/L 13-40 eGFR (test code = 1245607381) 137.7 mL/min/1.73m2 LAURIE (test code = LAURIE) [...] imaging tests). Lab Interpretation (test code = 59421-3) [facility]normal [facility] CenterLip[facility], [id number] 07:31:52* Test Item Value Reference Range Interpretation Comme nts LIPASE (test code = 9583883626) 73 U/L 0-220 Lab Interpretation (test cod e = 99672-0) Normal [facility] CenterTHYROID STIMULATING [id number] 18:17:21 * Test Item Value Reference Range Interpretation Comme nts TSH (test code = 9428500747) See_Comment H [Automated JANZZ] The system which generated this result transmitted reference range: 0.45 - 4.70 mIU/L. The reference range was not used to interpret this result as normal/abnormal. Lab Interpretation (test code = 49228-9) [facility]normal [facility] CenterFR [id number] 16:53:41* Test Item Value Reference Range Interpretation Comme nts FREE T4 (test code = 5050222623) See_Comment L [Automated messa ge] The system which generated this result transmitted reference range: 0.78 - 2.20 ng/dL:. The reference range was not used to interpret this result as normal/abnormal. Lab Interpretation (test code = 14071-3) Abnormal [facility] [id number] 16:53:04* Test Item Value Reference Range Interpretation Comme nts FREE T3 (test code = 0482062742) 1.50 pg/mL 2.77-5.27 L Lab Interpretation (test cod e = 75072-3) Abnormal [facility]. METABOLIC PANEL (43713)2022-05-28 16:37:03* Test Item Value Reference Range Interpretation Comme nts NA (test code = 5914498854) 138 mmol/L 135-145 K (test code = 2045321613) 4.4 mmol/L 3.5-5 CL (test code = 4320388532) 101 mmol/L 98-108 CO2 TOTAL (test code = 7265410045) 27 mmol/L 23-31 AGAP (test code = 5113938979) 2-16 BUN (test code = 0064604807) 14 mg/dL 7-23 GLUCOSE (test code = 9176884825) 102 mg/dL 70-110 CREATININE (test code = 8401585000) 0.82 mg/dL 0.6-1.25 TOTAL BILI (test code = 2968226508) 0.5 mg/dL 0.1-1.1 CALCIUM (test code = 6624007639) 9.3 mg/dL 8.6-10.6 T PROTEIN (test code = 3058453255) 8.3 g/dL 6.3-8.2 H ALBUMIN (test code = 4099676027) 4.8 g/dL 3.5-5 ALK PHOS (test code = 5522730549) 75 U/L 34-122 ALTv (test code = 1742-6) 56 U/L 5-50 H AST(SGOT) (test code = 4053078745) 42 U/L 13-40 H eGFR (test code = 6674815177) mL/min/1.73m2 LAURIE (test code = LAURIE) Association [...] imaging tests). Lab Interpretation (test code = 74464-6) Abnormal [facility] WITH [id number] 16:25:38* Test Item Value Reference Range Interpretation Comme nts WBC (test code = 6690-2) See_Comment [[employer]] The system which generated this result transmitted reference range: 4.20 - 10.70 10*3/?L. The reference range was not used to interpret this result as normal/abnormal. RBC (test code = 789-8) See_Comment [Automated JANZZ] The system which generated this result transmitted [...] 33.0 g/dL 31.2-35 RDW-SD (test code = 40269-9) 48.1 fL 38.5-51.6 RDW-CV (test code = 788-0) 14.2 % 12.1-15.4 PLT (test code = 777-3) See_Comment [Automated messa ge] The system which generated this result transmitted reference range: 150 - 328 10*3/?L. The reference range was not used to interpret this result as normal/abnormal. MPV (test code = 37616-4) 9.5 fL 9.8-13 L NRBC/100 WBC (test code = 1050590534) See_Comment [Automated [employer] ssage] The system which generated this result transmitted reference range: 0.0 - 10.0 /100 WBCs. The reference range was not used to interpret this result as normal/abnormal. NRBC x10^3 (test code = 4983216567) See_Comment [Automated messa ge] The system which generated this result transmitted reference range: 10*3/?L. The reference range was not used to interpret this result as normal/abnormal. GRAN MAT (NEUT) % (test code = 770-8) 56.3 % IMM GRAN % (test code = 2593680332) 0.70 % LYMPH % (test code = 736-9) 32.8 % MONO % (test code = 5905-5) 6.2 % EOS % (test code = 713-8) 2.7 % BASO % (test code = 706-2) 1.3 % GRAN MAT x10^3(ANC) (test code = 6529942910) 4.87 10*3/uL 1.99-6.95 IMM GRAN x10^3 (test code = 6347214691) 0.06 10*3/uL 0-0.06 LYMPH x10^3 (test code = 731-0) 2.84 10*3/uL 1.09-3.23 MONO x10^3 (test code = 742-7) 0.54 10*3/uL 0.36-1.02 EOS x10^3 (test code = 711-2) 0.23 10*3/uL 0.06-0.53 BASO x10^3 (test code = 704-7) 0.11 10*3/uL 0.01-0.09 H Lab Interpretation (test code = 36481-9) [facility] 06:03:53* Test Item Value Reference Range Interpretation Comme nts MAGNESIUM (test code = 2291869860) 1.8 mg/dL 1.7-2.4 Lab Interpretation (test cod e = 82214-2) [facility]TR[facility] [id number] 06:00:52* Test Item Value Reference Range Interpretation Comments TROPONIN I (test code = 6131492916) 0.002 ng/mL See_Comment [Automated message] The system [...] of biotin. Lab Interpretation (test code = 83119-2) [facility] (95245)2022-05-06 05:49:11* Test Item Value Reference Range Interpretation Comme nts NA (test code = 4761059956) 136 mmol/L 135-145 K (test code = 7551133844) 4.4 mmol/L 3.5-5 CL (test code = 4376606292) 100 mmol/L 98-108 CO2 TOTAL (test code = 1367055422) 23 mmol/L 23-31 AGAP (test code = 4259394148) 2-16 BUN (test code = 4614932491) 16 mg/dL 7-23 GLUCOSE (test code = 4138353839) 116 mg/dL 70-110 H CREATININE (test code = 6485970396) 0.81 mg/dL 0.6-1.25 TOTAL BILI (test code = 5113450491) 0.6 mg/dL 0.1-1.1 CALCIUM (test code = 9661518183) 10.3 mg/dL 8.6-10.6 T PROTEIN (test code = 3339746410) 9.2 g/dL 6.3-8.2 H ALBUMIN (test code = 6092854156) 5.3 g/dL 3.5-5 H ALK PHOS (test code = 9745205940) 89 U/L 34-122 ALTv (test code = 1742-6) 44 U/L 5-50 AST(SGOT) (test code = 4882524156) 36 U/L 13-40 eGFR (test code = 4614229949) mL/min/1.73m2 LAURIE (test code = LAURIE) Association [...] imaging tests). Lab Interpretation (test code = 43595-9) [facility] 05:48:51* Test Item Value Reference Range Interpretation Comme nts LIPASE (test code = 8077901842) 67 U/L 0-220 Lab Interpretation (test cod e = 81268-7) [facility]CBC WITH [id number] 05:36:33* Test Item Value Reference Range Interpretation Comme nts WBC (test code = 6690-2) See_Comment H [Automated [employer]] The system which generated this result transmitted reference range: 4.20 - 10.70 10*3/?L. The reference range was not used to interpret this result as normal/abnormal. RBC (test code = 789-8) See_Comment [Automated [employer] ge] The system which generated this result [...] 34.1 g/dL 31.2-35 RDW-SD (test code = 01675-7) 45.9 fL 38.5-51.6 RDW-CV (test code = 788-0) 13.9 % 12.1-15.4 PLT (test code = 777-3) See_Comment [Automated [employer] ge] The system which generated this result transmitted reference range: 150 - 328 10*3/?L. The reference range was not used to interpret this result as normal/abnormal. MPV (test code = 13759-4) 9.5 fL 9.8-13 L NRBC/100 WBC (test code = 2108604996) See_Comment [Automated me ssage] The system which generated this result transmitted reference range: 0.0 - 10.0 /100 WBCs. The reference range was not used to interpret this result as normal/abnormal. NRBC x10^3 (test code = 1665220534) See_Comment [Automated messa ge] The system which generated this result transmitted reference range: 10*3/?L. The reference range was not used to interpret this result as normal/abnormal. GRAN MAT (NEUT) % (test code = 770-8) 60.3 % IMM GRAN % (test code = 9260395819) 0.80 % LYMPH % (test code = 736-9) 27.6 % MONO % (test code = 5905-5) 6.8 % EOS % (test code = 713-8) 3.5 % BASO % (test code = 706-2) 1.0 % GRAN MAT x10^3(ANC) (test code = 5969230514) 6.95 10*3/uL 1.99-6.95 IMM GRAN x10^3 (test code = 8197488163) 0.09 10*3/uL 0-0.06 H LYMPH x10^3 (test code = 731-0) 3.19 10*3/uL 1.09-3.23 MONO x10^3 (test code = 742-7) 0.79 10*3/uL 0.36-1.02 EOS x10^3 (test code = 711-2) 0.40 10*3/uL 0.06-0.53 BASO x10^3 (test code = 704-7) 0.12 10*3/uL 0.01-0.09 H Lab Interpretation (test code = 03354-8) [facility] (22327)2022-[facility]-01 13:28:01* Test Item Value Reference Range Interpretation Comme nts NA (test code = 2415040776) 139 mmol/L 135-145 K (test code = 4534223102) 4.7 mmol/L 3.5-5 CL (test code = 0606049478) 104 mmol/L 98-108 CO2 TOTAL (test code = 7416421364) 23 mmol/L 23-31 AGAP (test code = 8601392614) 2-16 BUN (test code = 1015660556) 14 mg/dL 7-23 GLUCOSE (test code = 0086131972) 128 mg/dL 70-110 H CREATININE (test code = 2631248429) 0.62 mg/dL 0.6-1.25 TOTAL BILI (test code = 2153687201) 0.4 mg/dL 0.1-1.1 CALCIUM (test code = 5920888779) 9.2 mg/dL 8.6-10.6 T PROTEIN (test code = 2967313203) 8.1 g/dL 6.3-8.2 ALBUMIN (test code = 2754931338) 4.6 g/dL 3.5-5 ALK PHOS (test code = 2230663197) 92 U/L 34-122 ALTv (test code = 1742-6) 43 U/L 5-50 AST(SGOT) (test code = 1670184318) 30 U/L 13-40 eGFR (test code = 8819476098) mL/min/1.73m2 LAURIE (test code = LAURIE) Association [...] imaging tests). Lab Interpretation (test code = 87923-2) Abnormal [facility] WITH [id number] 13:20:02* Test Item Value Reference Range Interpretation Comme nts WBC (test code = 6690-2) See_Comment [Automated [employer] ge] The system which generated this result transmitted reference range: 4.20 - 10.70 10*3/?L. The reference range was not used to interpret this result as normal/abnormal. RBC (test code = 789-8) See_Comment [Automated [employer] ge] The system which generated this result [...] 32.8 g/dL 31.2-35 RDW-SD (test code = 33379-1) 47.5 fL 38.5-51.6 RDW-CV (test code = 788-0) 14.1 % 12.1-15.4 PLT (test code = 777-3) See_Comment [Automated [employer] ge] The system which generated this result transmitted reference range: 150 - 328 10*3/?L. The reference range was not used to interpret this result as normal/abnormal. MPV (test code = 83119-6) 9.3 fL 9.8-13 L NRBC/100 WBC (test code = 1780850073) See_Comment [Automated [employer] ssage] The system which generated this result transmitted reference range: 0.0 - 10.0 /100 WBCs. The reference range was not used to interpret this result as normal/abnormal. NRBC x10^3 (test code = 3775359699) See_Comment [Automated messa ge] The system which generated this result transmitted reference range: 10*3/?L. The reference range was not used to interpret this result as normal/abnormal. GRAN MAT (NEUT) % (test code = 770-8) 58.9 % IMM GRAN % (test code = 8105661839) 0.60 % LYMPH % (test code = 736-9) 29.2 % MONO % (test code = 5905-5) 6.8 % EOS % (test code = 713-8) 3.5 % BASO % (test code = 706-2) 1.0 % GRAN MAT x10^3(ANC) (test code = 6577794788) 5.80 10*3/uL 1.99-6.95 IMM GRAN x10^3 (test code = 7355531147) 0.06 10*3/uL 0-0.06 LYMPH x10^3 (test code = 731-0) 2.87 10*3/uL 1.09-3.23 MONO x10^3 (test code = 742-7) 0.67 10*3/uL 0.36-1.02 EOS x10^3 (test code = 711-2) 0.34 10*3/uL 0.06-0.53 BASO x10^3 (test code = 704-7) 0.10 10*3/uL 0.01-0.09 H Lab Interpretation (test code = 30761-9) Abnormal [facility] [id number] 07:04:38* Test Item Value Reference Range Interpretation Comments TROPONIN I (test code = 5372145716) 0.002 ng/mL See_Comment [Automated message] The system [...] of biotin. Lab Interpretation (test code = 25961-1) [id number] 07:00:14* Test Item Value Reference Range Interpretation Comme nts NT-proBNP (test code = 7005119601) 25 pg/mL See_Comment [Automated message] The system which generated this result transmitted reference range: <=125. The reference range was not used to interpret this result as normal/abnormal. LAURIE (test code = LAURIE) Biotin has been reported to cause a negative bias, interpret results relative to patient's use of biotin. Lab Interpretation (test code = 70922-4) [facility] 06:53:02* Test Item Value Reference Range Interpretation Comme nts ALCOHOL (test code = 4355511010) <10 mg/dL LAURIE (test code = LAURIE) <10 Berwsfjm11-079 Toxic>100 Depression of [employer]ATION[employer] MANAGER>400 Fatalities Reported [facility] 06:50:57* Test Item Value Reference Range Interpretation Comme nts LIPASE (test code = 3199986592) 65 U/L 0-220 Lab Interpretation (test cod e = 80932-2) [facility] (04835)2022-02-08 06:50:57* Test Item Value Reference Range Interpretation Comme nts NA (test code = 6529861475) 138 mmol/L 135-145 K (test code = 1214909188) 4.3 mmol/L 3.5-5.0 CL (test code = 1948932319) 103 mmol/L 98-108 CO2 TOTAL (test code = 0257656723) 23 mmol/L 23-31 AGAP (test code = 2704184487) 2-16 BUN (test code = 7870259629) 14 mg/dL 7-23 GLUCOSE (test code = 0040483004) 142 mg/dL 70-110 H CREATININE (test code = 9675506573) 0.60 mg/dL 0.60-1.25 TOTAL BILI (test code = 4777908518) 0.5 mg/dL 0.1-1.1 CALCIUM (test code = 0940599329) 9.1 mg/dL 8.6-10.6 T PROTEIN (test code = 1181525372) 7.9 g/dL 6.3-8.2 ALBUMIN (test code = 7709432485) 4.5 g/dL 3.5-5.0 ALK PHOS (test code = 4494349876) 81 U/L 34-122 ALTv (test code = 1742-6) 28 U/L 5-50 AST(SGOT) (test code = 8761408156) 24 U/L 13-40 eGFR (test code = 1375288972) mL/min/1.73m2 LAURIE (test code = LAURIE) Association [...] imaging tests). Lab Interpretation (test code = 89656-3) Abnormal [facility] CenterACT[facility] THRMPLAS [id number] 06:47:31* Test Item Value Reference Range Interpretation Comme [facility] APTT Patient (test code = 3173-2) See_Comment [Automated message] The system which generated this result transmitted reference range: 23 - 38 Seconds. The reference range was not used to interpret this result as normal/abnormal. LAURIE (test code = LAURIE) The [facility] patient population mean normal value for aPTT is 30 seconds. Lab Interpretation (test code = 95267-1) Normal [facility] CenterPROT[facility]OMBIN TIME / [id number] 06:45:33* Test Item Value Reference Range Interpretation Comme [facility] PROTIME PATIENT (test code = 5964-2) See_Comment [Automated [employer]] The system which generated this result transmitted reference range: 12.0 - 14.7 Seconds. The reference range was not used to interpret this result as normal/abnormal. INR (test code = 6301-6) Normal INR <1.1; Warfarin Therapeutic range 2.0 to 3.0 or 2.5 to 3.5, depending upon the indications. Lab Interpretation (test code = 67921-4) [facility] CenterCBC WITH [id number] 06:37:36* Test Item Value Reference Range Interpretation Comme [facility] WBC (test code = 6690-2) See_Comment [Automated [employer]] The system which generated this result transmitted reference range: 4.20 - 10.70 10*3/?L. The reference range was not used to interpret this result as normal/abnormal. RBC (test code = 789-8) See_Comment [Automated [employer]] The system which generated this result transmitted [...] 33.4 g/dL 31.2-35.0 RDW-SD (test code = 31916-9) 42.7 fL 38.5-51.6 RDW-CV (test code = 788-0) 13.1 % 12.1-15.4 PLT (test code = 777-3) See_Comment [Automated messa ge] The system which generated this result transmitted reference range: 150 - 328 10*3/?L. The reference range was not used to interpret this result as normal/abnormal. MPV (test code = 85398-0) 9.7 fL 9.8-13.0 L NRBC/100 WBC (test code = 6056578450) See_Comment [Automated [employer] ssage] The system which generated this result transmitted reference range: 0.0 - 10.0 /100 WBCs. The reference range was not used to interpret this result as normal/abnormal. NRBC x10^3 (test code = 6950987524) <0.01 See_Comment [Automated messa ge] The system which generated this result transmitted reference range: 10*3/?L. The reference range was not used to interpret this result as normal/abnormal. GRAN MAT (NEUT) % (test code = 770-8) 54.9 % IMM GRAN % (test code = 0055259877) 0.70 % LYMPH % (test code = 736-9) 32.9 % MONO % (test code = 5905-5) 8.7 % EOS % (test code = 713-8) 2.0 % BASO % (test code = 706-2) 0.8 % GRAN MAT x10^3(ANC) (test code = 6391372500) 5.84 10*3/uL 1.99-6.95 IMM GRAN x10^3 (test code = 8105044520) 0.07 10*3/uL 0.00-0.06 H LYMPH x10^3 (test code = 731-0) 3.50 10*3/uL 1.09-3.23 H MONO x10^3 (test code = 742-7) 0.92 10*3/uL 0.36-1.02 EOS x10^3 (test code = 711-2) 0.21 10*3/uL 0.06-0.53 BASO x10^3 (test code = 704-7) 0.09 10*3/uL 0.01-0.09 Lab Interpretation (test code = 39758-9) Abnormal [facility] CenterTR[facility]IN [id number] 01:09:15* Test Item Value Reference Range Interpretation Comments TROPONIN I (test code = 9136704689) 0.003 ng/mL See_Comment [Automated message] The system [...] of biotin. Lab Interpretation (test code = 76166-3) Normal [facility] Center[facility]OLIC PANEL (74227)2021-10-15 00:56:56* Test Item Value Reference Range Interpretation Comme nts NA (test code = 0557295407) 135 mmol/L 135-145 K (test code = 3195417613) 4.6 mmol/L 3.5-5.0 CL (test code = 1018592738) 101 mmol/L 98-108 CO2 TOTAL (test code = 1747087725) 25 mmol/L 23-31 AGAP (test code = 7255995133) 2-16 BUN (test code = 8896677768) 20 mg/dL 7-23 GLUCOSE (test code = 1105004923) 130 mg/dL 70-110 H CREATININE (test code = 1129647312) 0.92 mg/dL 0.60-1.25 TOTAL BILI (test code = 2156543962) 0.4 mg/dL 0.1-1.1 CALCIUM (test code = 3070907964) 10.0 mg/dL 8.6-10.6 T PROTEIN (test code = 8712997010) 8.5 g/dL 6.3-8.2 H ALBUMIN (test code = 8954813462) 4.8 g/dL 3.5-5.0 ALK PHOS (test code = 4499072957) 89 U/L 34-122 ALTv (test code = 1742-6) 59 U/L 5-50 H AST(SGOT) (test code = 4178333294) 38 U/L 13-40 eGFR (test code = 9375777777) mL/min/1.73m2 LAURIE (test code = LAURIE) Association [...] imaging tests). Lab Interpretation (test code = 34440-1) [facility]normal [facility] 00:56:36* Test Item Value Reference Range Interpretation Comme nts LIPASE (test code = 9216384798) 77 U/L 0-220 Lab Interpretation (test cod e = 17307-2) Normal [facility] WITH [id number] 00:37:36* Test Item Value Reference Range Interpretation [...] 33.6 g/dL 31.2-35.0 RDW-SD (test code = 51022-8) 44.2 fL 38.5-51.6 RDW-CV (test code = 788-0) 13.3 % 12.1-15.4 PLT (test code = 777-3) See_Comment [Automated messa ge] The system which generated this result transmitted reference range: 150 - 328 10*3/?L. The reference range was not used to interpret this result as normal/abnormal. MPV (test code = 19658-7) 9.5 fL 9.8-13.0 L NRBC/100 WBC (test code = 7047307995) See_Comment [Automated [employer] ssage] The system which generated this result transmitted reference range: 0.0 - 10.0 /100 WBCs. The reference range was not used to interpret this result as normal/abnormal. NRBC x10^3 (test code = 0386951794) <0.01 See_Comment [Automated messa ge] The system which generated this result transmitted reference range: 10*3/?L. The reference range was not used to interpret this result as normal/abnormal. GRAN MAT (NEUT) % (test code = 770-8) 55.3 % IMM GRAN % (test code = 4151458563) 0.60 % LYMPH % (test code = 736-9) 32.5 % MONO % (test code = 5905-5) 7.8 % EOS % (test code = 713-8) 2.7 % BASO % (test code = 706-2) 1.1 % GRAN MAT x10^3(ANC) (test code = 9294391958) 5.74 10*3/uL 1.99-6.95 IMM GRAN x10^3 (test code = 9231934463) 0.06 10*3/uL 0.00-0.06 LYMPH x10^3 (test code = 731-0) 3.37 10*3/uL 1.09-3.23 H MONO x10^3 (test code = 742-7) 0.81 10*3/uL 0.36-1.02 EOS x10^3 (test code = 711-2) 0.28 10*3/uL 0.06-0.53 BASO x10^3 (test code = 704-7) 0.11 10*3/uL 0.01-0.09 H Lab Interpretation (test code = 56334-3) [facility]normal [facility] Center[facility]OVID[facility] (ID NOW RAPID TESTING)2021-03-15 04:10:11* Test Item Value Reference Range Interpretation Comme nts SARS-CoV-2 Rapid ID NOW (test code = 12266-0) Not Detected Not Detected LAURIE (test code = LAURIE) ID NOW COVID-19 As say is an isothermal nucleic acid amplification test intended for the qualitative detection of nucleic acid from SARS-CoV-2 viral RNA in nasopharyngeal ([employer]AT BUILDER) specimens. It is used under Emergency Use [...] clinically indicated. Lab Interpretation (test code = 78462-3) Normal [facility]. METABOLIC PANEL (79254)2021-03-15 03:35:30* Test Item Value Reference Range Interpretation Comme nts NA (test code = 3869537335) 139 mmol/L 135-145 K (test code = 9277983211) 3.2 mmol/L 3.5-5.0 L CL (test code = 9858400644) 109 mmol/L 98-108 H CO2 TOTAL (test code = 6875685998) 23 mmol/L 23-31 AGAP (test code = 1222955919) 2-16 BUN (test code = 7051632237) 19 mg/dL 7-23 GLUCOSE (test code = 2971940241) 150 mg/dL 70-110 H CREATININE (test code = 5798344943) 0.81 mg/dL 0.60-1.25 TOTAL BILI (test code = 4020561160) 0.3 mg/dL 0.1-1.1 CALCIUM (test code = 8966998781) 8.2 mg/dL 8.6-10.6 L T PROTEIN (test code = 0520339626) 6.9 g/dL 6.3-8.2 ALBUMIN (test code = 8534770176) 4.0 g/dL 3.5-5.0 ALK PHOS (test code = 0646457268) 77 U/L 34-122 ALTv (test code = 1742-6) 22 U/L 5-50 AST(SGOT) (test code = 1736475216) 26 U/L 13-40 eGFR (test code = 2519114074) mL/min/1.73m2 LAURIE (test code = LAURIE) Association [...] imaging tests). Lab Interpretation (test code = 04557-4) [facility]normal [facility]IS2021-[facility] 03:35:00* Test Item Value Reference Range Interpretation Comme nts APPEARANCE (test code = 0459265746) Clear Clear COLOR (test code = 7274051047) Yellow Yellow PH (test code = 4959215119) 4.8-8.0 SP GRAVITY (test code = 4798736706) 1.003-1.030 GLU U QUAL (test code = 8961932022) Normal Normal BLOOD (test code = 9932398343) Negative Negative KETONES (test code = 4224910002) 5 mg/dL Negative A PROTEIN (test code = 2887-8) Negative Negative UROBILIN (test code = 9136073087) Normal Normal BILIRUBIN (test code = 7083125407) Negative Negative NITRITE (test code = 1105407680) Negative Negative LEUK KENNY (test code = 8441676116) Negative Negative RBC/HPF (test code = 6642083376) <1 See_Comment [[employer]] The system which generated this result transmitted reference range: 0 - 3 HPF. The reference range was not used to interpret this result as normal/abnormal. WBC/HPF (test code = 0550732039) <1 See_Comment [[employer]] The system which generated this result transmitted reference range: 0 - 5 HPF. The reference range was not used to interpret this result as normal/abnormal. BACTERIA (test code = 9517273433) Negative Negative MUCOUS (test code = 9960766155) Slight Negative LPF A SQ EPITH (test code = 2515167687) <1 HPF Lab Interpretation (test code = 14805-8) Abnormal [facility] WITH [id number] 03:22:25* Test Item Value Reference Range Interpretation [...] 33.3 g/dL 31.2-35.0 RDW-SD (test code = 33101-6) 45.8 fL 38.5-51.6 RDW-CV (test code = 788-0) 13.7 % 12.1-15.4 PLT (test code = 777-3) See_Comment H [Automated messa ge] The system which generated this result transmitted reference range: 150 - 328 10*3/?L. The reference range was not used to interpret this result as normal/abnormal. MPV (test code = 22461-6) 9.4 fL 9.8-13.0 L NRBC/100 WBC (test code = 9654971857) See_Comment [Automated [employer] ssage] The system which generated this result transmitted reference range: 0.0 - 10.0 /100 WBCs. The reference range was not used to interpret this result as normal/abnormal. NRBC x10^3 (test code = 2191766639) <0.01 See_Comment [Automated messa ge] The system which generated this result transmitted reference range: 10*3/?L. The reference range was not used to interpret this result as normal/abnormal. GRAN MAT (NEUT) % (test code = 770-8) 58.4 % IMM GRAN % (test code = 8325634988) 0.50 % LYMPH % (test code = 736-9) 30.5 % MONO % (test code = 5905-5) 7.5 % EOS % (test code = 713-8) 2.2 % BASO % (test code = 706-2) 0.9 % GRAN MAT x10^3(ANC) (test code = 5133172998) 5.75 10*3/uL 1.99-6.95 IMM GRAN x10^3 (test code = 8067471318) 0.05 10*3/uL 0.00-0.06 LYMPH x10^3 (test code = 731-0) 3.00 10*3/uL 1.09-3.23 MONO x10^3 (test code = 742-7) 0.74 10*3/uL 0.36-1.02 EOS x10^3 (test code = 711-2) 0.22 10*3/uL 0.06-0.53 BASO x10^3 (test code = 704-7) 0.09 10*3/uL 0.01-0.09 Lab Interpretation (test code = 70574-0) [facility]normal [facility] (28461)2020-09-08 23:50:00* Test Item Value Reference Range Interpretation Comme nts NA (test code = 6921108197) 139 mmol/L 135-145 K (test code = 2311886719) 4.1 mmol/L 3.5-5 CL (test code = 3296418812) 107 mmol/L 98-108 CO2 TOTAL (test code = 3619913357) 22 mmol/L 23-31 L AGAP (test code = 1501517826) 2-16 BUN (test code = 3052249519) 12 mg/dL 7-23 GLUCOSE (test code = 8715363708) 115 mg/dL 70-110 H CREATININE (test code = 7473654834) 0.54 mg/dL 0.6-1.25 L TOTAL BILI (test code = 6487687710) 0.3 mg/dL 0.1-1.1 CALCIUM (test code = 3169077860) 9.3 mg/dL 8.6-10.6 T PROTEIN (test code = 7623373571) 7.6 g/dL 6.3-8.2 ALBUMIN (test code = 7758112118) 4.3 g/dL 3.5-5 ALK PHOS (test code = 4012512256) 80 U/L 34-122 ALTv (test code = 1742-6) 21 U/L 5-50 AST(SGOT) (test code = 8995139834) 21 U/L 13-40 eGFR Calculation (Non-) (test code = 7808575184) mL/min/1.73m2 eGFR Calculation () (test code = 4439198431) mL/min/1.73m2 LAURIE (test code = LAURIE) Association [...] imaging tests). Lab Interpretation (test code = 78085-0) [facility] 23:50:00* Test Item Value Reference Range Interpretation Comme nts LIPASE (test code = 1558820517) 68 U/L 0-220 Lab Interpretation (test cod e = 17472-8) Normal [facility] WITH [id number] 23:22:00* Test Item Value Reference Range Interpretation Comme nts WBC (test code = 6690-2) See_Comment [Automated [employer]] The system which generated this result transmitted reference range: 4.20 - 10.70 10*3/?L. The reference range was not used to interpret this result as normal/abnormal. RBC (test code = 789-8) See_Comment [Automated [employer]] The system which generated this result transmitted [...] 34.1 g/dL 31.2-35 RDW-SD (test code = 54048-7) 40.8 fL 38.5-51.6 RDW-CV (test code = 788-0) 12.5 % 12.1-15.4 PLT (test code = 777-3) See_Comment [Automated [employer]] The system which generated this result transmitted reference range: 150 - 328 10*3/?L. The reference range was not used to interpret this result as normal/abnormal. MPV (test code = 63782-5) 9.1 fL 9.8-13 L NRBC/100 WBC (test code = 6627729650) See_Comment [Automated me ssage] The system which generated this result transmitted reference range: 0.0 - 10.0 /100 WBCs. The reference range was not used to interpret this result as normal/abnormal. NRBC x10^3 (test code = 0499496015) <0.01 See_Comment [Automated messa ge] The system which generated this result transmitted reference range: 10*3/?L. The reference range was not used to interpret this result as normal/abnormal. GRAN MAT (NEUT) % (test code = 770-8) 59.0 % IMM GRAN % (test code = 5119976768) 0.60 % LYMPH % (test code = 736-9) 31.3 % MONO % (test code = 5905-5) 6.6 % EOS % (test code = 713-8) 1.9 % BASO % (test code = 706-2) 0.6 % GRAN MAT x10^3(ANC) (test code = 0990579242) 5.85 10*3/uL 1.99-6.95 IMM GRAN x10^3 (test code = 0378835928) 0.06 10*3/uL 0-0.06 LYMPH x10^3 (test code = 731-0) 3.10 10*3/uL 1.09-3.23 MONO x10^3 (test code = 742-7) 0.65 10*3/uL 0.36-1.02 EOS x10^3 (test code = 711-2) 0.19 10*3/uL 0.06-0.53 BASO x10^3 (test code = 704-7) 0.06 10*3/uL 0.01-0.09 Lab Interpretation (test code = 59660-3) [facility]normal [facility] W [id number] 17:21:17CT Abdomen and Pelvis with intravenous contrast. [...] fluid inthe abdomen or in the pelvis.2. Hepatomegaly.[facility]. METABOLIC PANEL (40348)2020-09-06 16:39:00* Test Item Value Reference Range Interpretation Comme nts NA (test code = 3864645236) 138 mmol/L 135-145 K (test code = 1860381880) 4.2 mmol/L 3.5-5 CL (test code = 7308573124) 103 mmol/L 98-108 CO2 TOTAL (test code = 8673160486) 25 mmol/L 23-31 AGAP (test code = 4914984874) 2-16 BUN (test code = 2915252209) 17 mg/dL 7-23 GLUCOSE (test code = 0401506440) 124 mg/dL 70-110 H CREATININE (test code = 1275122053) 0.95 mg/dL 0.6-1.25 TOTAL BILI (test code = 3144482380) 0.4 mg/dL 0.1-1.1 CALCIUM (test code = 2269539604) 9.7 mg/dL 8.6-10.6 T PROTEIN (test code = 2618662704) 7.9 g/dL 6.3-8.2 ALBUMIN (test code = 5853082697) 4.5 g/dL 3.5-5 ALK PHOS (test code = 6903562619) 75 U/L 34-122 ALTv (test code = 1742-6) 28 U/L 5-50 AST(SGOT) (test code = 5211424757) 23 U/L 13-40 eGFR Calculation (Non-) (test code = 1218956293) mL/min/1.73m2 eGFR Calculation () (test code = 1273198240) mL/min/1.73m2 LAURIE (test code = LAURIE) Association [...] imaging tests). Lab Interpretation (test code = 10155-9) [facility] 16:39:00* Test Item Value Reference Range Interpretation Comme nts LIPASE (test code = 5628868461) 70 U/L 0-220 Lab Interpretation (test cod e = 96064-9) Normal [facility]2020-11-18 16:39:00* Test Item Value Reference Range Interpretation Comme nts MAGNESIUM (test code = 0856501663) 1.9 mg/dL 1.7-2.4 Lab Interpretation (test cod e = 66713-6) Normal [facility] CenterLactic Acid Whole [id number] 16:38:00* Test Item Value Reference Range Interpretation Comme nts LACTIC ACID (test code = 9775506601) 1.51 mmol/L [facility] WITH [id number] 16:20:00* Test Item Value Reference Range Interpretation Comme nts WBC (test code = 6690-2) See_Comment [Automated [employer] ge] The system which generated this result [...] 32.8 g/dL 31.2-35 RDW-SD (test code = 07580-9) 42.2 fL 38.5-51.6 RDW-CV (test code = 788-0) 12.6 % 12.1-15.4 PLT (test code = 777-3) See_Comment [Automated [employer]] The system which generated this result transmitted reference range: 150 - 328 10*3/?L. The reference range was not used to interpret this result as normal/abnormal. MPV (test code = 23727-5) 9.3 fL 9.8-13 L NRBC/100 WBC (test code = 7072097976) See_Comment [Automated me ssage] The system which generated this result transmitted reference range: 0.0 - 10.0 /100 WBCs. The reference range was not used to interpret this result as normal/abnormal. NRBC x10^3 (test code = 8249458419) <0.01 See_Comment [Automated messa ge] The system which generated this result transmitted reference range: 10*3/?L. The reference range was not used to interpret this result as normal/abnormal. GRAN MAT (NEUT) % (test code = 770-8) 64.9 % IMM GRAN % (test code = 6717455289) 0.50 % LYMPH % (test code = 736-9) 25.0 % MONO % (test code = 5905-5) 7.5 % EOS % (test code = 713-8) 1.3 % BASO % (test code = 706-2) 0.8 % GRAN MAT x10^3(ANC) (test code = 9808723215) 5.99 10*3/uL 1.99-6.95 IMM GRAN x10^3 (test code = 8968290767) 0.05 10*3/uL 0-0.06 LYMPH x10^3 (test code = 731-0) 2.31 10*3/uL 1.09-3.23 MONO x10^3 (test code = 742-7) 0.69 10*3/uL 0.36-1.02 EOS x10^3 (test code = 711-2) 0.12 10*3/uL 0.06-0.53 BASO x10^3 (test code = 704-7) 0.07 10*3/uL 0.01-0.09 Lab Interpretation (test code = 14756-6) [facility]39229[facility]2020-08-30 10:29:00* Test Item Value Reference Range Interpretation Comme nts NA (test code = 7369881994) 139 mmol/L 135-145 K (test code = 2690335227) 4.7 mmol/L 3.5-5 CL (test code = 8982598628) 105 mmol/L 98-108 CO2 TOTAL (test code = 4404844550) 24 mmol/L 23-31 AGAP (test code = 6061297110) 2-16 BUN (test code = 3863811656) 21 mg/dL 7-23 GLUCOSE (test code = 1865175032) 109 mg/dL 70-110 CREATININE (test code = 4763925810) 0.99 mg/dL 0.6-1.25 TOTAL BILI (test code = 2870816476) 0.4 mg/dL 0.1-1.1 CALCIUM (test code = 5512867225) 9.4 mg/dL 8.6-10.6 T PROTEIN (test code = 1413946082) 7.4 g/dL 6.3-8.2 ALBUMIN (test code = 3044535444) 4.2 g/dL 3.5-5 ALK PHOS (test code = 0744091859) 68 U/L 34-122 ALTv (test code = 1742-6) 33 U/L 5-50 AST(SGOT) (test code = 9861086435) 28 U/L 13-40 eGFR Calculation (Non-) (test code = 3808012168) mL/min/1.73m2 eGFR Calculation () (test code = 9117227670) mL/min/1.73m2 LAURIE (test code = LAURIE) Association [...] or urine or abnormalities in imaging tests). [facility] WITH [id number] 09:50:00* Test Item Value Reference Range Interpretation [...] 32.4 g/dL 31.2-35 RDW-SD (test code = 00375-6) 43.6 fL 38.5-51.6 RDW-CV (test code = 788-0) 13.0 % 12.1-15.4 PLT (test code = 777-3) See_Comment [Automated message] The system which generated this result transmitted reference range: 150 - 328 10*3/?L. The reference range was not used to interpret this result as normal/abnormal. MPV (test code = 57328-2) 10.0 fL 9.8-13 NRBC/100 WBC (test code = 3572766393) See_Comment [Automated message] The system which generated this result transmitted reference range: 0.0 - 10.0 /100 WBCs. The reference range was not used to interpret this result as normal/abnormal. NRBC x10^3 (test code = 3200159862) <0.01 See_Comment [Automated message] The system which generated this result transmitted reference range: 10*3/?L. The reference range was not used to interpret this result as normal/abnormal. GRAN MAT (NEUT) % (test code = 770-8) 80.1 % IMM GRAN % (test code = 5931844324) 0.50 % LYMPH % (test code = 736-9) 12.5 % MONO % (test code = 5905-5) 6.5 % EOS % (test code = 713-8) 0.1 % BASO % (test code = 706-2) 0.3 % GRAN MAT x10^3(ANC) (test code = 8178476414) 12.09 10*3/uL 1.99-6.95 H IMM GRAN x10^3 (test code = 7919950642) 0.08 10*3/uL 0-0.06 H LYMPH x10^3 (test code = 731-0) 1.89 10*3/uL 1.09-3.23 MONO x10^3 (test code = 742-7) 0.98 10*3/uL 0.36-1.02 EOS x10^3 (test code = 711-2) <0.03 0.06-0.53 L BASO x10^3 (test code = 704-7) 0.04 10*3/uL 0.01-0.09 Lab Interpretation (test code = 09702-9) [facility]normal [facility] (06220[facility] (ALB,T.PRO,BILI T,BU/BC,ALT,AST,ALK PHOS)2020-08-28 21:15:00* Test Item Value Reference Range Interpretation Comme nts TOTAL BILI (test code = 8920379154) 0.6 mg/dL 0.1-1.1 BILI UNCON (test code = 1291903982) 0.4 mg/dL 0.1-1.1 BILI CONJ (test code = 5118315450) 0.0 mg/dL 0-0.3 T PROTEIN (test code = 7456323650) 7.2 g/dL 6.3-8.2 ALBUMIN (test code = 7446073670) 3.9 g/dL 3.5-5 ALK PHOS (test code = 5122317620) 65 U/L 34-122 ALTv (test code = 1742-6) 20 U/L 5-50 AST(SGOT) (test code = 5162351758) 25 U/L 13-40 Lab Interpretation (test cod e = 83462-4) Normal [facility] ABDOMEN [id number] 18:22:30 Hepatomegaly with moderate hepatic steatosis. Cholelithiasis [...] sign which could be related to stone. [facility] CenterXR CHEST 1 [id number] 14:32:06No acute cardiopulmonary abnormality. Preliminary Report Dictated [...] have reviewed this study andagree with theabove report.[facility] CenterBasi Metabolic Panel (NA, K, CL, CO2, GLUCOSE, BUN, CREATININE, CA) 2020-08-28 11:39:00* Test Item Value Reference Range Interpretation Comme nts NA (test code = 6548370400) 137 mmol/L 135-145 K (test code = 6328173301) 3.9 mmol/L 3.5-5 CL (test code = 1212463632) 104 mmol/L 98-108 CO2 TOTAL (test code = 9283082586) 28 mmol/L 23-31 AGAP (test code = 8803424498) 2-16 BUN (test code = 3044651978) 15 mg/dL 7-23 GLUCOSE (test code = 7334988480) 96 mg/dL 70-110 CREATININE (test code = 8138204249) 0.68 mg/dL 0.6-1.25 CALCIUM (test code = 1933844611) 9.2 mg/dL 8.6-10.6 eGFR Calculation (Non-) (test code = 4693990914) mL/min/1.73m2 eGFR Calculation () (test code = 6460051975) mL/min/1.73m2 LAURIE (test code = LAURIE) Association [...] or urine or abnormalities in imaging tests). [facility] CenterCT ABDOMEN PELVIS W WO [id number] 19:39:221. ?Diffuse bladder wall thickening is likely [...] reviewed this study and agree with theabove report.[facility] CenterPOCT GLUCOSE (AUTOMATED) 2020-08-27 19:34:00* Test Item Value Reference Range Interpretation Comme nts POCT GLU (test code = 0673039721) 95 mg/dL 70-110 Lab Interpretation (test cod e = 02953-0) Normal [facility] CenterTROPONIN [id number] 19:12:00* Test Item Value Reference Range Interpretation Comme nts TROPONIN I (test code = 1879321767) <0.012 See_Comment [Automated message] The system which [...] biotin. ? Lab Interpretation (test code = 07238-8) Normal [facility]SE (AUT[facility]ATED)2020-08-27 14:42:00* Test Item Value Reference Range Interpretation Comme nts POCT GLU (test code = 5705924230) 99 mg/dL 70-110 Lab Interpretation (test cod e = 15650-2) Normal [facility] CenterTROPONIN [id number] 13:09:00* Test Item Value Reference Range Interpretation Comme nts TROPONIN I (test code = 9584364666) <0.012 See_Comment [Automated message] The system which [...] biotin. ? Lab Interpretation (test code = 60523-4) Normal [facility] CenterLIPID PANEL (81727)(TOTAL CHOLESTEROL, TRIGLYCERIDES, HDL)2020-08-27 08:31:00* Test Item Value Reference Range Interpretation Comme nts CHOL (test code = 0882839236) 208 mg/dL 120-200 H HDL (test code = 1887048870) 28 mg/dL >40 L HDLC RATIO (test code = 2961387049) See_Comment H [Automated JANZZ] The system which generated this result transmitted reference range: <=5.0. The reference range was not used to interpret this result as normal/abnormal. TRIG (test code = 5418937973) 351 mg/dL 30-170 H LDL CHOL (test code = 96239-5) 110 mg/dL See_Comment [Automated JANZZ] The system which generated this result transmitted reference range: <=160. The reference range was not used to interpret this result as normal/abnormal. VLDL (test code = 6599218519) 70 mg/dL 5-60 H Lab Interpretation (test code = 00785-2) Abnormal [facility] CenterTHYROID STIMULATING [id number] 08:00:00 * Test Item Value Reference Range Interpretation Comme nts TSH (test code = 1726317954) See_Comment L Biotin has been reported to cause a negative bias, interpret results relative to patient's use of biotin. [Automated message] The system which generated this result transmitted reference range: 0.45 - 4.70 mIU/L. The reference range was not used to interpret this result as normal/abnormal. Lab Interpretation (test code = 71588-7) Abnormal [facility] CenterCOVID-19 (ID NOW RAPID TESTING)2020-08-27 07:03:00* Test Item Value Reference Range Interpretation Comme nts SARS-CoV-2 Rapid ID NOW (test code = 67015-8) Not Detected Not Detected LAURIE (test code = LAURIE) ID NOW COVID-19 As say is an isothermal nucleic acid amplification test intended for the qualitative detection of nucleic acid from SARS-CoV-2 viral RNA in nasopharyngeal ([employer]ER[employer] BOAT BUILDER) specimens. It is used under Emergency Use [...] clinically indicated. Lab Interpretation (test code = 20174-9) Normal [facility] / [facility] - DRUG SCREEN [id number] 06:58:00* Test Item Value Reference Range Interpretation Comme nts BENZO U (test code = 1458803787) Negative Negative HORACIO U (test code = 4372384696) Negative Negative AMPHET (test code = 9243689178) Negative Negative THC (test code = 8207381342) Negative Negative METHADONE (test code = 3922553549) Negative Negative Meth U (test code = 0964706628) Negative Negative OPIATES (test code = 2840664415) Negative Negative Cocaine Metabolite (test code = 3915318725) Negative Negative PROPOXY (test code = 2327271251) Negative Negative Tric U (test code = 2116856651) Negative Negative PCP (test code = 2535138089) Negative Negative OXYCOD (test code = 0882694464) Negative Negative LAURIE (test code = LAURIE) [...] legal testing). Lab Interpretation (test code = 43825-5) Normal [facility] CenterUrinalysis2020-11-08 06:51:00* Test Item Value Reference Range Interpretation Comme nts APPEARANCE (test code = 5614640481) Clear Clear COLOR (test code = 2423950770) Yellow Yellow PH (test code = 3179235110) 4.8-8.0 SP GRAVITY (test code = 1836685972) 1.003-1.030 GLU U QUAL (test code = 0208187274) Normal Normal BLOOD (test code = 1099376790) Negative Negative KETONES (test code = 0461722066) 20 mg/dL Negative A PROTEIN (test code = 2887-8) Negative Negative UROBILIN (test code = 4909863612) Normal Normal BILIRUBIN (test code = 1641213842) Negative Negative NITRITE (test code = 2434501988) Negative Negative LEUK KENNY (test code = 3810444926) Negative Negative RBC/HPF (test code = 8398878622) See_Comment [Automated CoinJara ge] The system which generated this result transmitted reference range: 0 - 3 HPF. The reference range was not used to interpret this result as normal/abnormal. WBC/HPF (test code = 0562793216) See_Comment [Automated CoinJara ge] The system which generated this result transmitted reference range: 0 - 5 HPF. The reference range was not used to interpret this result as normal/abnormal. BACTERIA (test code = 9534071740) Negative Negative MUCOUS (test code = 8251964394) Slight Negative LPF A Lab Interpretation (test code = 29348-0) Abnormal [facility] CenterTroponin [id number] 06:45:00* Test Item Value Reference Range Interpretation Comme nts TROPONIN I (test code = 0310263208) <0.012 See_Comment [Automated message] The system which [...] biotin. ? Lab Interpretation (test code = 60107-2) Normal [facility] CenterETHANOL2020-11-08 06:34:00* Test Item Value Reference Range Interpretation Comme nts ALCOHOL (test code = 3050713245) 14 mg/dL LAURIE (test code = LAURIE) <10 Vxywlogk76-111 Toxic>100 Depression of MARKET RELATIONSHIP MANAGER>400 Fatalities Reported [facility] CenterBasic Metabolic Panel (NA, K, CL, CO2, GLUCOSE, BUN, CREATININE, CA)2020-08-27 06:33:00* Test Item Value Reference Range Interpretation Comme nts NA (test code = 9127922326) 137 mmol/L 135-145 K (test code = 3052708085) 3.6 mmol/L 3.5-5 CL (test code = 1001006264) 102 mmol/L 98-108 CO2 TOTAL (test code = 1899844625) 26 mmol/L 23-31 AGAP (test code = 3402444579) 2-16 BUN (test code = 6386610262) 13 mg/dL 7-23 GLUCOSE (test code = 2742303365) 119 mg/dL 70-110 H CREATININE (test code = 4009224934) 0.86 mg/dL 0.6-1.25 CALCIUM (test code = 0670086462) 9.8 mg/dL 8.6-10.6 eGFR Calculation (Non-) (test code = 9089890164) mL/min/1.73m2 eGFR Calculation () (test code = 0879286843) mL/min/1.73m2 LAURIE (test code = LAURIE) Association [...] imaging tests). Lab Interpretation (test code = 88916-1) Abnormal [facility] CenterHepatic Function Panel (ALB, T.PRO, BILI T, BU/BC, ALT, AST, ALK PHOS)2020-08-27 06:33:00* Test Item Value Reference Range Interpretation Comme nts TOTAL BILI (test code = 3201841207) 0.3 mg/dL 0.1-1.1 BILI UNCON (test code = 7057735652) 0.2 mg/dL 0.1-1.1 BILI CONJ (test code = 5272592330) 0.0 mg/dL 0-0.3 T PROTEIN (test code = 2180236295) 7.8 g/dL 6.3-8.2 ALBUMIN (test code = 8093149594) 4.5 g/dL 3.5-5 ALK PHOS (test code = 8891454293) 71 U/L 34-122 ALTv (test code = 1742-6) 26 U/L 5-50 AST(SGOT) (test code = 5047837109) 26 U/L 13-40 Lab Interpretation (test cod e = 45747-0) Normal [facility] CenterLipase [id number] 06:33:00* Test Item Value Reference Range Interpretation Comme [facility] LIPASE (test code = 5517710593) 77 U/L 0-220 Lab Interpretation (test cod e = 72067-2) Normal [facility] CenteraPTT2020-11-08 06:19:00* Test Item Value Reference Range Interpretation Comme [facility] APTT Patient (test code = 3173-2) See_Comment [Automated message] The system which generated this result transmitted reference range: 23 - 38 Seconds. The reference range was not used to interpret this result as normal/abnormal. LAURIE (test code = LAURIE) The [facility] patient population mean normal value for aPTT is 30 seconds. Lab Interpretation (test code = 35666-9) Normal [facility] CenterProthrombin Time (PT) / [id number] 06:17:00 * Test Item Value Reference Range Interpretation Comme [facility] PROTIME PATIENT (test code = 5964-2) See_Comment [Automated CoinJara ge] The system which generated this result transmitted reference range: 12.0 - 14.7 Seconds. The reference range was not used to interpret this result as normal/abnormal. INR (test code = 6301-6) Normal INR <1.1; Warfarin Therapeutic range 2.0 to 3.0 or 2.5 to 3.5, depending upon the indications. Lab Interpretation (test code = 49775-5) Normal [facility] with [id number] 06:07:00* Test Item Value Reference Range Interpretation [...] 32.8 g/dL 31.2-35 RDW-SD (test code = 58441-0) 42.9 fL 38.5-51.6 RDW-CV (test code = 788-0) 12.7 % 12.1-15.4 PLT (test code = 777-3) See_Comment [Automated messa ge] The system which generated this result transmitted reference range: 150 - 328 10*3/?L. The reference range was not used to interpret this result as normal/abnormal. MPV (test code = 51221-8) 9.1 fL 9.8-13 L NRBC/100 WBC (test code = 5415386917) See_Comment [Automated [employer] ssage] The system which generated this result transmitted reference range: 0.0 - 10.0 /100 WBCs. The reference range was not used to interpret this result as normal/abnormal. NRBC x10^3 (test code = 4773121136) <0.01 See_Comment [Automated messa ge] The system which generated this result transmitted reference range: 10*3/?L. The reference range was not used to interpret this result as normal/abnormal. GRAN MAT (NEUT) % (test code = 770-8) 52.4 % IMM GRAN % (test code = 5149521390) 0.50 % LYMPH % (test code = 736-9) 37.8 % MONO % (test code = 5905-5) 6.2 % EOS % (test code = 713-8) 2.3 % BASO % (test code = 706-2) 0.8 % GRAN MAT x10^3(ANC) (test code = 3107881260) 4.33 10*3/uL 1.99-6.95 IMM GRAN x10^3 (test code = 5062598099) 0.04 10*3/uL 0-0.06 LYMPH x10^3 (test code = 731-0) 3.13 10*3/uL 1.09-3.23 MONO x10^3 (test code = 742-7) 0.51 10*3/uL 0.36-1.02 EOS x10^3 (test code = 711-2) 0.19 10*3/uL 0.06-0.53 BASO x10^3 (test code = 704-7) 0.07 10*3/uL 0.01-0.09 Lab Interpretation (test code = 37136-4) Abnormal [facility] [id number] 04:41:00* Test Item Value Reference Range Interpretation Comme nts TROPONIN I (test code = 6113413746) 0.000 ng/mL See_Comment [Automated message] The system [...] biotin. ? Lab Interpretation (test code = 08556-3) Normal [facility] / [facility] - DRUG SCREEN [id number] 03:46:00* Test Item Value Reference Range Interpretation Comme nts BENZO U (test code = 8709633278) Negative Negative HORACIO U (test code = 2009237898) Negative Negative AMPHET (test code = 4323210836) Negative Negative THC (test code = 0956881059) Negative Negative METHADONE (test code = 8067074334) Negative Negative Meth U (test code = 9028520201) Negative Negative OPIATES (test code = 1907798547) Presumptive Positive Negative A Cocaine Metabolite (test code = 6591960146) Negative Negative PROPOXY (test code = 9045371520) Negative Negative Tric U (test code = 0962226503) Negative Negative PCP (test code = 6469603886) Negative Negative OXYCOD (test code = 7548532204) Negative Negative LAURIE (test code = LAURIE) [...] legal testing). Lab Interpretation (test code = 71345-5) Abnormal [facility] CenterD-MHNHG4560-61-23 03:29:00* Test Item Value Reference Range Interpretation Comments D-DIMER (test code = 8221924836) <0.27 See_Comment [Automated message] The system which [...] a diagnosis. Lab Interpretation (test code = 82665-6) Normal [facility] CenterLIPASE2020-09-21 02:07:00* Test Item Value Reference Range Interpretation Comme nts LIPASE (test code = 2164152515) 58 U/L 0-220 Lab Interpretation (test cod e = 28338-9) Normal [facility] CenterXR CHEST 1 [id number] 01:44:02No acute cardiopulmonary abnormality. Preliminary Report Dictated [...] reviewed this study and agree with theabove report.[facility] TROPONIN [id number] 01:40:00* Test Item Value Reference Range Interpretation Comme [facility] TROPONIN I (test code = 3581533622) 0.000 ng/mL See_Comment [Automated message] The system [...] biotin. ? Lab Interpretation (test code = 91854-6) Normal [facility] CenterPROTHROMBIN TIME / [id number] 01:39:00* Test Item Value Reference Range Interpretation [...] the indications. Lab Interpretation (test code = 83047-5) Normal [facility] CenterCOVID-19 (ID NOW RAPID TESTING)2020-07-10 01:36:00* Test Item Value Reference Range Interpretation Comme nts SARS-CoV-2 Rapid ID NOW (test code = 31949-6) Not Detected Not Detected LAURIE (test code = LAURIE) ID NOW COVID-19 As say is an isothermal nucleic acid amplification test intended for the qualitative detection of nucleic acid from SARS-CoV-2 viral RNA in nasopharyngeal ([employer] BOAT BUILDER) specimens. It is used under Emergency Use [...] clinically indicated. Lab Interpretation (test code = 07437-9) Normal [facility]. METABOLIC PANEL (07699)2020-07-10 01:29:00* Test Item Value Reference Range Interpretation Comme nts NA (test code = 3479000506) 136 mmol/L 135-145 K (test code = 2133478178) 3.4 mmol/L 3.5-5 L CL (test code = 9937816268) 98 mmol/L 98-108 CO2 TOTAL (test code = 9373808660) 26 mmol/L 23-31 AGAP (test code = 6950933538) 2-16 BUN (test code = 2216242064) 16 mg/dL 7-23 GLUCOSE (test code = 7288178403) 165 mg/dL 70-110 H CREATININE (test code = 9061689733) 0.94 mg/dL 0.6-1.25 TOTAL BILI (test code = 2350298046) 0.4 mg/dL 0.1-1.1 CALCIUM (test code = 1811337309) 9.7 mg/dL 8.6-10.6 T PROTEIN (test code = 4355246015) 8.2 g/dL 6.3-8.2 ALBUMIN (test code = 6160670379) 4.4 g/dL 3.5-5 ALK PHOS (test code = 0526906885) 77 U/L 34-122 ALTv (test code = 1742-6) 31 U/L 5-50 AST(SGOT) (test code = 4150795509) 26 U/L 13-40 eGFR Calculation (Non-) (test code = 7470652769) mL/min/1.73m2 eGFR Calculation () (test code = 9343468321) mL/min/1.73m2 LAURIE (test code = LAURIE) Association [...] imaging tests). Lab Interpretation (test code = 96387-7) Abnormal [facility] WITH [id number] 01:11:00* Test Item Value Reference Range Interpretation [...] 34.0 g/dL 31.2-35 RDW-SD (test code = 17173-3) 42.6 fL 38.5-51.6 RDW-CV (test code = 788-0) 13.0 % 12.1-15.4 PLT (test code = 777-3) See_Comment [Automated messa ge] The system which generated this result transmitted reference range: 150 - 328 10*3/?L. The reference range was not used to interpret this result as normal/abnormal. MPV (test code = 12744-7) 9.5 fL 9.8-13 L NRBC/100 WBC (test code = 4232966288) See_Comment [Automated [employer] ssage] The system which generated this result transmitted reference range: 0.0 - 10.0 /100 WBCs. The reference range was not used to interpret this result as normal/abnormal. NRBC x10^3 (test code = 8636371085) <0.01 See_Comment [Automated messa ge] The system which generated this result transmitted reference range: 10*3/?L. The reference range was not used to interpret this result as normal/abnormal. GRAN MAT (NEUT) % (test code = 770-8) 65.5 % IMM GRAN % (test code = 2399238715) 0.70 % LYMPH % (test code = 736-9) 26.1 % MONO % (test code = 5905-5) 5.7 % EOS % (test code = 713-8) 1.2 % BASO % (test code = 706-2) 0.8 % GRAN MAT x10^3(ANC) (test code = 3608287114) 6.62 10*3/uL 1.99-6.95 IMM GRAN x10^3 (test code = 6109384363) 0.07 10*3/uL 0-0.06 H LYMPH x10^3 (test code = 731-0) 2.64 10*3/uL 1.09-3.23 MONO x10^3 (test code = 742-7) 0.58 10*3/uL 0.36-1.02 EOS x10^3 (test code = 711-2) 0.12 10*3/uL 0.06-0.53 BASO x10^3 (test code = 704-7) 0.08 10*3/uL 0.01-0.09 Lab Interpretation (test code = 97496-8) Abnormal [facility] Notes Date/Time Note Provider Source 2024-02-04 14:36:04 [...] distress. No ataxia noted. Iris Ferguson RN [facility] 2024-02-04 13:30:00 Report from Korey LAZO. Belkys Corrigan RN [facility] 2024-02-04 10:46:14 Pt arrived via private car with RLQ abd pain starting 2-3 days ago abd becoming worse Shalini Nair RN [facility] 2023-12-28 04:24:01 Pt given printed and verbal discharge instructions regarding epigastric pain, encouraged smaller meals. Pt verbalized understanding of instructions,pt encouraged to follow up with pcp and or GI Advised to seek medical attention for new/prolonged/worsening of symptoms, Awake, alert oriented, resp reg unlabored, skin w/d, pt leaving in no apparent distress, Cynthia Frank RN [facility] 2023-12-28 03:42:02 Pt reports the GI cocktail did not relieve his discomfort. Pt states he can feel his food coming up his esophagus. Pt is requesting medication for pain. Vira Huang RN [facility] 2023-12-28 03:07:24 Patient ambulatory to ED c/o waking up around 0100 this AM to food feeling like it was coming back up from his stomach to mouth. Patient last ate around 1900 and went to bed around 2200. Patient states having headache, denies N/V/D. Tylenol taken around 1900 for headache. Sarina Graahm RN [facility] 2023-12-28 03:06:00 [facility] Emergency Department Note Patient Name: Marysol Duomnt Date of : 1975 48 year old male Treatment Room: Room/bed info not found Primary Care Physician: PATIENT DOES NOT HAVE A PCP Patient Escorted by: Friend [6] Mode of Arrival: Personal means [1] EMS Treatment Prior to ED Arrival: PALLIATIVE CARE PHYSICIAN treatment: Medication (comment) PALLIATIVE CARE PHYSICIAN treatment comments: Tylenol Travel and Exposure Screening: [...] History provided by: Patient and medical records financial aid officer used: Yes Abdominal Pain Pain location: Epigastric [...] N/A 08/29/2020 Surgeon: Vaishali Vicente MD; Location: [facility] OR Location OTHER Testicular surgery TONGUE [...] MD -- ED COURSE Diagnosis/Impression as of 12/28/23 0414 Epigastric pain Procedures: Procedures MDM: Medical Decision [...] for Cough for up to 20 doses. [id number]-TMYSJDFTBIXZE-[id number] 50-325-40 MG TABLET Take 1 tablet by [...] for follow-up Allison Sanchez MD Specialty: IM-GASTROENTEROLOGY [facility] [id number] [address] [facility] [id number] Electronically signed by: Chapito Contreras MD 12/28/23413 [facility] 2023-11-06 02:36:40 Pt given printed and [...] with steady gait, in no apparent distress Y Huang RN [facility] 2023-11-05 23:47:32 Patient ambulatory to ED c/o abd pain that started yesterday. Patient went to PCP today and patient states no prescriptions were given. Patient states vomiting twice PALLIATIVE CARE PHYSICIAN. Last medication taken was Tylenol tonight. Patient is tearful in triage. Y Graham RN [facility] 2023-11-01 04:18:58 Pt given printed and [...] with steady gait, in no apparent distress [facility] 2023-10-31 23:33:52 Pt arrived c/o RLQ/epigastric abdominal pain, vomiting, and headache. Pain began yesterday. PMH: Gallbladder removed 2/3 years ago [facility] 2023-10-31 23:28:00 [facility] Emergency Department Note Patient Name: Marysol Dumont Date of : 1975 48 year old male Treatment Room: [place] [address] Primary Care Physician: PATIENT DOES NOT HAVE A PCP Patient Escorted by: Family [5] Mode of Arrival: Personal means [1] EMS Treatment Prior to ED Arrival: PALLIATIVE CARE PHYSICIAN treatment: None Travel and Exposure Screening: Symptoms [...] N/A 08/29/2020 Surgeon: Vaishali Vicente MD; Location: [facility] OR Location OTHER Testicular surgery TONGUE [...] No obvious mass, no hernia sac, testicles-nl. [place], nontender Musculoskeletal: General: Normal range of motion. [...] the abdomen or pelvis. RL: 460 AFC: [id number] Lab Results: Lab Results COMP. METABOLIC PANEL (89392) - Abnormal Result Value Ref Range NA [...] for Cough for up to 20 doses. MUXDEVDQBH-[id number] 50-325-40 MG TABLET Take 1 tablet by [...] by: Jose Francisco Walters MD 11/01/23 0332 [facility] 2023-10-23 02:26:31 Pt given printed and verbal [...] with steady gait, in no apparent distress. [facility] More Zamudio RN [facility] 2023-10-22 23:44:24 CC: Pt reports RLQ abd pain and 2 episodes of vomiting since morning. Pt has BM this morning was normal. PMHx: HTN, DM2 Awake, alert, oriented, resp reg unlabored, skin warm, color appropriate for race, moves all ext without difficulty, amb with steady gait [facility] 2023-10-22 23:33:00 [facility] Emergency Department Note Patient Name: Marysol Dumont Date of : 1975 48 year old male Treatment Room: TX2/TX2 Primary Care Physician: PATIENT DOES NOT HAVE A PCP Patient Escorted by: Family [5] Mode of Arrival: Personal means [1] EMS Treatment Prior to ED Arrival: PALLIATIVE CARE PHYSICIAN treatment: Medication (comment) PALLIATIVE CARE PHYSICIAN treatment comments: 2 tylenol 2 hrs ago [...] History provided by: Medical records and patient financial aid officer used: No Abdominal Pain Pain location: RLQ [...] N/A 08/29/2020 Surgeon: Vaishali Vicente MD; Location: [facility] OR Location OTHER Testicular surgery TONGUE [...] or pelvis. Normal appendix. RL: 460 AFC: [id number] Lab Results: Lab Results COMP. METABOLIC PANEL (64817) - Abnormal Result Value Ref Range NA [...] for Cough for up to 20 doses. XCCXPEOIAH-JDGDZIVWIQVGP-[id number] 50-325-40 MG TABLET Take 1 tablet by [...] for follow-up Omaira Chen MD Specialty: IM-GASTROENTEROLOGY [address] [place] [id number] Electronically signed by: Chapito Contreras MD 10/23/23219 [facility] 2023-07-07 05:55:19 Formatting of this n ote [...] noted upon discharge [facility] 2023-07-07 03:54:59 Formatting of this n ote might be different from the original. Pt states that he last night his blood pressure was running high and he has headache. 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 Pt state that he took his enalapril around 2300 last night. [facility] 2023-07-07 03:49:00 Formatting of this n ote is different from the original. [facility] Emergency Department Note Patient Name: Marysol Dumont Date of : 1975 47 year old male Treatment Room: DE5/[facility] Primary Care Physician: PATIENT DOES NOT HAVE A PCP Patient Escorted by: Self [9] Mode of Arrival: Personal means [1] EMS Treatment Prior to ED Arrival: PALLIATIVE CARE PHYSICIAN treatment: None Travel and Exposure Screening: Symptoms [...] History provided by: Patient and medical records financial aid officer used: No Hypertension Severity: Moderate Onset quality: Sudden Duration: 2 hours Timing: Sporadic Chronicity: Chronic Time since last dose of antihypertensive: 2 hours Notable PALLIATIVE CARE PHYSICIAN blood pressures: 198/112 Context: normal sodium, not [...] N/A 08/29/2020 Surgeon: Vaishali Vicente MD; Location: [facility] OR Location OTHER Testicular surgery TONGUE [...] Lab Results: Lab Results COMP. METABOLIC PANEL (08933) - Abnormal Result Value Ref Range NA [...] Encounter Procedures TROPONIN I COMP. METABOLIC PANEL (69175) LIPASE, SERUM CBC WITH DIFF URINALYSIS Orders Placed This Encounter Medications ketorolac (TORADOL) injection 30 mg metoclopramide HCl (REGLAN) injection 10 mg dnqeyzwlck-xohwpzzvkxiui-hfdg 50-325-40 mg tablet First Provider Eval: ED Events Date/Time Event User Comments 07/07/23 0400 Medical Screening Begins CHAPITO CONTRERAS MD -- [...] Medications: Patient's Medications START taking these medications [id number]-[id number]-[id number] 50-325-40 MG TABLET Take 1 tablet by [...] for follow-up Ulises Carter MD Specialty: PN-NEUROLOGY [facility] [address] [place] [id number] Electronically signed by: Chapito Contreras MD 07/07/23 8538 [facility] 2023-05-25 22:36:27 Formatting of this n [...] in no apparent distress Vira Huang RN [facility] 2023-05-25 17:15:02 Formatting of this n ote might be different from the original. Pt arrived via private car with c/o chest pain that started about 3 hours PALLIATIVE CARE PHYSICIAN, EKG done in triage, PA assessing pt at this time. Shalini Nair RN [facility]
[2024-09-20] MEDS ORDERED: ONDANSETRON 4 MG/2 ML VIAL ONE (19:21)
[2024-09-20] MEDS ORDERED: FAMOTIDINE 20 MG/2 ML VIAL IV ONE (19:22)
[2024-09-20] MEDS ORDERED: MORPHINE 4 MG/ML SYR ONE (19:22)
[2024-09-20] MEDS ORDERED: ASPIRIN 81 MG CHEWABLE TABLET ONE (19:22)
[2024-09-20 19:36] LABS: Absolute Basophils 0.1 K/uL (0-0.5); Absolute Eosinophils 0.1 K/uL (0-0.5); Absolute Lymphocytes (CBC) 3.2 K/uL (0.7-4.9); Absolute Monocytes 0.9 K/uL (0.1-1.3); Absolute Neutrophil 8.5 K/uL (1.8-8.0); Basophils % 0.9 % (0-1.3); Eosinophils % 1.1 % (0-4.4); Hematocrit 46.4 % (39.6-49.0); Hemoglobin 15.7 g/dL (13.6-17.9); Lymphocytes % 25.1 % (15.3-44.8); MCH 30.9 pg (27.0-35.0); MCHC 33.8 g/dL (32.0-36.0); MCV 91.4 fL (80-100); MPV 7.5 fL (7.6-11.3); Monocytes % 6.7 % (3.3-12.3); Neutrophils % 66.2 % (41.7-73.7); Nucleated Red Blood Cells % 0.1 % (0-0); Platelets 298 thou/uL (152-406); RBC Red Blood Cell Count 5.08 M/uL (4.33-5.43)
[2024-09-20 19:38] LABS: PT Prothrombin Time 11.2 SECONDS (9.4-12.5)
--- NOTE | 2024-09-20 19:44 | RAD REPORT ---
EXAMINATION: ONE VIEW CHEST XR CLINICAL INDICATION: Male, 48 years old.,CHEST PAIN TECHNIQUE: Frontal chest projection is submitted. Examination is limited by patient positioning and t echnique. COMPARISON: 05/29/2024 FINDINGS: The lungs are well inflated and clear. No pneumothorax or sizable effusion. The heart is normal in s ize. Mediastinal contours are unremarkable. IMPRESSION: No acute intrathoracic abnormalities.
[2024-09-20 19:53] LABS: ALT/SGPT 22 U/L (16-61); AST/SGOT 13 U/L (15-37); Albumin 3.8 g/dL (3.4-5.0); Albumin/Globulin Ratio 0.9 (1.1-1.8); Alkaline Phosphatase 88 U/L (45-117); Anion Gap 11.7 mEq/L (5.0-15.0); BUN Blood Urea Nitrogen 17 mg/dL (7-18); Bicarbonate 23 mEq/L (21-32); Bilirubin Total 0.3 mg/dL (0.2-1.0); Globulin 4.2 g/dL (2.3-3.5); Glomerular Filtration Rate 71 ml/min (=/>90); Glucose Level 115 mg/dL (74-106); Magnesium 2.2 mg/dL (1.6-2.4); NT PRO-BNP 50 pg/mL (<125); Potassium 3.7 mEq/L (3.5-5.1); Sodium Level 137 mEq/L (136-145)
[2024-09-20 19:54] LABS: Bilirubin Direct < 0.2 mg/dL (0-0.2); Bilirubin Indirect, Calculated 0.1 mg/dL (0.2-0.8)
[2024-09-20] MEDS ORDERED: NITROGLYCERIN 0.4 MG/TAB SL ONE (20:05)
[2024-09-20] MEDS ORDERED: LORazepam 2 MG/ML VIAL ONE (21:26)
[2024-09-20] MEDS ORDERED: FENTANYL CITR 100 MCG/2 ML ONE (22:07)
--- NOTE | 2024-09-20 22:14 | RAD REPORT ---
EXAM: CT Chest For Pe Angio TECHNIQUE: CT angiogram of the chest was performed following intravenous contrast administration, inc luding sagittal and coronal as well as maximum intensity projection reformats. One or more of the following dose reduction techniques were used: Automated exposure control, adjustment of the mA and k V according to patient size, and iterative reconstruction. Unless otherwise specified, incidental findings do not require dedicated imaging follow-up. INDICATION: [facility] MAIN Chest pain;SOB Bed Name: 5 Y COMPARISON: Chest radiograph of the same day. FINDINGS: LINES/TUBES: None. PULMONARY ARTERIES: Main pulmonary arteries are normal in caliber. No filling defects within the pul monary arteries to suggest pulmonary embolus. LUNGS AND AIRWAYS: The lungs and central airways are normal without focal abnormality. PLEURA: No effusion or pneumothorax. HEART AND MEDIASTINUM: The visualized thyroid gland is normal. No mediastinal, hilar, or axillary lym phadenopathy. Heart is unremarkable. No pericardial effusion. SOFT TISSUES AND BONES: No acute osseous abnormality. No significant soft tissue finding. UPPER ABDOMEN: Unremarkable. IMPRESSION: No evidence of acute central pulmonary emboli. No suspicious intrathoracic findings..
[2024-09-20] MEDS ORDERED: PANTOPRAZOLE 40 MG INJ ONE (22:30)
[2024-09-20] MEDS ORDERED: MAGNES/ALUMIN/SIMET 30ML UCUP ONE ×2 (22:30→22:34)
[2024-09-20] MEDS ORDERED: LIDOCAINE VISCOUS 2% 10ML ORAL SOLN ONE ×2 (22:31→22:34)
--- NOTE | 2024-09-20 22:34 | EDPHYS ---
Physician Documentation [facility] Name: Carrington Dumont Age: 48 yrs Sex: Male : 1975 Arrival Date: 09/20/2024 Time: 18:15 Bed 18 Private MD: ED Physician Landen Atkinson HPI: 09/20 19:00 This 48 yrs old Male presents to ER via Ambulatory with complaints of Chest cp Pain. 19:00 The patient or guardian reports chest pain that is located primarily in the anterior cp chest wall, left. Onset: 2 day(s) ago. 19:00 The pain does not radiate. cp 19:00 Associated signs and symptoms: Pertinent positives: shortness of breath, Pertinent cp negatives: abdominal pain, cough, diaphoresis, dizziness, lower extremity pain, lower extremity swelling, syncope. The chest pain is described as similar to cardiac pain. history of stent placement in January 2024. Duration: The patient or guardian reports multiple episodes, that wax and wane. Severity of pain: in the emergency department the pain is unchanged despite home interventions. Historical: - Allergies: 18:55 PENICILLINS; aa5 - PMHx: 18:55 coronary atherosclerosis; Hypertension; Hypothyroidism; aa5 - PSHx: 18:55 Cholecystectomy; Stented artery; aa5 - Immunization history:: Adult Immunizations unknown. - Infectious Disease History:: Denies. - Social history:: Smoking status: Patient reports the use of cigarette tobacco products. ROS: 19:05 Constitutional: Negative for body aches, chills, fever, poor PO intake, cp 19:05 Eyes: Negative for injury, pain, redness, and discharge, cp 19:05 ENT: Negative for drainage from ear(s), ear pain, sore throat, difficulty swallowing, difficulty handling secretions, 19:05 Cardiovascular: Positive for chest pain, Negative for edema, palpitations, 19:05 Respiratory: Positive for shortness of breath, Negative for cough, wheezing, 19:05 Abdomen/GI: Negative for abdominal pain, vomiting, diarrhea, constipation, 19:05 Back: Negative for pain at rest, pain with movement, 19:05 Neuro: Negative for altered mental status, dizziness, headache, syncope, weakness, 19:05 All other systems are negative, Exam: 18:57 ECG was reviewed by the Attending Physician. cp 19:10 Constitutional: The patient appears in no acute distress, alert, awake, cp non-diaphoretic, non-toxic, well developed, well nourished, obese, uncomfortable, 19:10 Head/Face: Normocephalic, atraumatic. cp 19:10 Eyes: Periorbital structures: appear normal, Conjunctiva: normal, no exudate, no injection, Sclera: no appreciated abnormality, Lids and lashes: appear normal, bilaterally, 19:10 ENT: External ear(s): are unremarkable, Nose: is normal, Mouth: Lips: moist, Oral mucosa: moist, Posterior pharynx: Airway: no evidence of obstruction, patent, 19:10 Neck: ROM/movement: is normal, is supple, without pain, no range of motions limitations, 19:10 Chest/axilla: Inspection: normal, 19:10 Cardiovascular: Rate: normal, Rhythm: regular, Edema: is not appreciated, JVD: is not appreciated, 19:10 Respiratory: the patient does not display signs of respiratory distress, Respirations: normal, no use of accessory muscles, no retractions, labored breathing, is not present, Breath sounds: are clear throughout, no decreased breath sounds, no stridor, no wheezing, 19:10 Abdomen/GI: Inspection: obese Palpation: abdomen is soft and non-tender, in all quadrants, 19:10 Neuro: Orientation: to person, place \T\ time. Mentation: is normal, Motor: moves all fours, strength is normal, Sensation: is normal, 22:05 ECG was reviewed by the Attending Physician. cp Vital Signs: 18:55 Weight 108.86 kg (R); Height 5 ft. 8 in. (R); aa5 18:55 BP 166 / 109; Pulse 93; Resp 20 S; Temp 98.6(O); Pulse Ox 99% on R/A; aa5 20:11 BP 151 / 73; Pulse 95; Resp 18; Pulse Ox 93% on 2 lpm NC; cp4 20:51 BP 138 / 81; Pulse 88; Resp 18; Pulse Ox 94% on 2 lpm NC; cp4 22:10 BP 122 / 73; Pulse 76; Resp 18; Pulse Ox 97% on 2 lpm NC; cp4 23:04 BP 131 / 77; Pulse 81; Resp 18; Pulse Ox 97% on 2 lpm NC; cp4 09/21 00:50 BP 113 / 67; Pulse 74; Resp 18; Pulse Ox 97% on 2 lpm NC; cp4 09/20 18:55 Body Mass Index 36.49 (108.86 kg, 172.72 cm) aa5 MDM: 12 18:55 Medical Screening Exam initiated cp 22:35 Data reviewed: vital signs, nurses notes, lab test result(s), EKG, radiologic studies, cp CT scan, plain films, and as a result, I will admit patient. 22:35 Differential diagnosis: acute myocardial infarction, acute pericarditis, pericarditis, cp pneumonia, pneumothorax, pulmonary embolus, stable angina, thoracic aortic disection, unstable angina. The patient was given aspirin in the Emergency Department. I considered the following discharge prescriptions or medication management in the emergency department Medications were administered in the Emergency Department. See MAR. Independent interpretation of the following test(s) in the Emergency Department EKG: See my EKG interpretation above. Care significantly affected by the following chronic conditions: Hypertension, Obesity. Counseling: I had a detailed discussion with the patient and/or guardian regarding the historical points, exam findings, and any diagnostic results supporting the discharge/admit diagnosis, lab results, radiology results. Response to treatment: the patient's symptoms have mildly improved after treatment. 22:35 Management of patient was discussed with the following: Hospitalist: DR Neely who will cp admit after discussion. 09/20 18:56 Order name: Basic Metabolic Panel; Complete Time: 20:00 12 20:00 Interpretation: Normal except: GLUC 115; GFR 71. 09/20 18:56 Order name: CBC with Diff; Complete Time: 20:00 12 20:01 Interpretation: Normal except: WBC 12.80; MPV 7.5; NEUT A 8.5. 09/20 18:56 Order name: LFT's; Complete Time: 20:00 12 20:01 Interpretation: Normal except: AST 13; IBILI, CALC 0.1; GLOB 4.2; A/G 0.9. 09/20 18:56 Order name: Magnesium; Complete Time: 20:00 09/20 18:56 Order name: NT PRO-BNP; Complete Time: 20:00 09/20 18:56 Order name: PT-INR; Complete Time: 20:00 cp 09/20 18:56 Order name: Troponin HS; Complete Time: 20:00 cp 09/20 20:40 Order name: Troponin High Sensitivity; Complete Time: 21:51 cp 09/20 21:51 Interpretation: Reviewed. cp 09/21 00:44 Order name: Thyroid Stimulating Hormone EDMS 09/21 00:44 Order name: Urinalysis w/ reflexes EDMS 09/21 00:44 Order name: CBC with Automated Diff EDMS 09/21 00:44 Order name: CBC with Automated Diff EDMS 09/21 00:44 Order name: Comprehensive Metabolic Panel EDMS 09/21 00:44 Order name: Comprehensive Metabolic Panel EDMS 09/21 00:44 Order name: Lipid Profile EDMS 09/21 00:44 Order name: Lipid Profile EDMS 09/21 00:44 Order name: Troponin High Sensitivity EDMS 09/21 00:44 Order name: Troponin High Sensitivity EDMS 09/21 00:44 Order name: Troponin High Sensitivity EDMS 09/21 00:44 Order name: Troponin High Sensitivity EDMS 09/21 06:33 Order name: Thyroid Stimulating Hormone EDMS 09/21 06:46 Order name: T4 Free EDMS 09/21 08:03 Order name: CBC with Automated Diff EDMS 09/21 08:13 Order name: Basic Metabolic Panel EDMS 09/21 08:13 Order name: Lipid Profile EDMS 09/21 08:13 Order name: Magnesium EDMS 09/21 08:23 Order name: Hemoglobin A1c EDMS 09/20 18:56 Order name: XRAY Chest (1 view); Complete Time: 20:00 cp 09/20 20:07 Order name: CT Chest For PE Angio; Complete Time: 22:19 cp 09/20 22:19 Interpretation: Report reviewed. cp 09/21 00:44 Order name: CONS Physician Consult EDMS 09/20 18:56 Order name: Cardiac monitoring; Complete Time: 19:19 cp 09/20 18:56 Order name: EKG - Nurse/Tech; Complete Time: 19:06 cp 09/20 18:56 Order name: IV Saline Lock; Complete Time: 19:19 cp 09/20 18:56 Order name: Labs collected and sent; Complete Time: 19:19 cp 09/20 18:56 Order name: O2 Per Protocol; Complete Time: 19:19 cp 09/20 18:56 Order name: O2 Sat Monitoring; Complete Time: 19:19 cp 09/20 21:56 Order name: EKG - Nurse/Tech; Complete Time: 22:03 EC:57 Rate is 104 beats/min. Rhythm is regular. RI interval is normal. QRS interval is cp normal. QT interval is normal. T waves are Inverted in lead aVR. Interpreted by me. Reviewed by me. 22:05 Rate is 81 beats/min. Rhythm is regular. RI interval is normal. QRS interval is normal. cp QT interval is normal. T waves are Inverted in leads III, aVF, aVR, V4, V6. Interpreted by me. Reviewed by me. Administered Medications: 19:30 Drug: Aspirin PO Chewable Tablet 324 mg PO once; 81 mg tablets x 4 Route: PO; cp4 23:04 Follow up: Response: No adverse reaction cp4 19:30 Drug: morphine IVP or IV 4 mg IVP once over 4 mins Route: IVP; Infused Over: 4 mins; cp4 Site: right antecubital; 20:14 Follow up: Response: No adverse reaction; Pain is decreased cp4 19:30 Drug: Ondansetron IVP 4 mg IVP once; over 2 minutes Route: IVP; Site: right antecubital;cp4 20:14 Follow up: Response: No adverse reaction cp4 19:30 Drug: Famotidine IVP 20 mg IVP once; dilute with 10 mL 0.9% NaCl; give over 2 minutes cp4 Route: IVP; Site: right antecubital; 20:14 Follow up: Response: No adverse reaction cp4 20:15 Drug: Nitroglycerin Sublingual 0.4 mg Sublingual once Route: Sublingual; cp4 21:20 Follow up: Response: No adverse reaction; Pain is unchanged, physician notified cp4 21:28 Drug: Ativan IVP 1 mg IVP once Route: IVP; Site: right antecubital; cp4 22:25 Follow up: Response: No adverse reaction cp4 22:10 Drug: fentaNYL (PF) IVP 50 mcg IVP once Route: IVP; Site: right antecubital; cp4 22:25 Follow up: Response: No adverse reaction; Pain is unchanged, physician notified cp4 22:37 Drug: Pantoprazole IVP 40 mg IVP once Route: IVP; Site: right antecubital; cp4 23:03 Follow up: Response: No adverse reaction cp4 22:37 Drug: GI Cocktail without - (Maalox PO 30 ml, Lidocaine Mucous Membrane 2 % 15 cp4 ml) PO once Route: PO; 23:03 Follow up: Response: No adverse reaction cp4 Disposition Summary: 09/20/24 22:34 Hospitalization Ordered Notes: Hospitalization Status: Observation cp Provider: Narciso Neely cp Condition: Stable cp Problem: new cp Symptoms: have improved cp Bed/Room Type: Standard cp Location: Telemetry/MedSurg (observation)(09/21/24 13:28) bd Room Assignment: 415(09/21/24 13:30) bd Diagnosis - Angina pectoris, unspecified cp Forms: - Medication Reconciliation Form cp - SBAR form cp - Leadership Thank You Letter cp Signatures: Dispatcher [employer] EDMS Carol Reis Audri, RN RN aa5 Marc Vega PA PA Imani Medrano RN RN vc1 Evelyn Corrigan cp4 Corrections: (The following items were deleted from the chart) 18:56 18:56 BASIC METABOLIC PANEL+C.LAB.BRZ ordered. EDMS EDMS 18:56 18:56 CBC+H.LAB.BRZ ordered. EDMS EDMS 18:56 18:56 HEPATIC FUNCTION+C.LAB.BRZ ordered. EDMS EDMS 18:56 18:56 MAGNESIUM+C.LAB.BRZ ordered. EDMS EDMS 18:56 18:56 PROBNP+C.LAB.BRZ ordered. EDMS EDMS 18:56 18:56 PROTIME (+INR)+COAG.LAB.BRZ ordered. EDMS EDMS 18:56 18:56 Troponin High Sensitivity+C.LAB.BRZ ordered. EDMS EDMS 18:56 18:56 Chest Single View+RAD.RAD.BRZ ordered. EDMS EDMS 23:34 22:34 Telemetry/MedSurg (observation) cp vc1 23:34 22:34 cp vc1 09/21 13:28 12 23:34 [facility] ER HOLD vc1 bd 09/21 13:28 12 23:34 ERHOLD- vc1 bd 12/03 13:30 13:28 413 bd bd
--- NOTE | 2024-09-20 22:34 | ER ---
Nurse's Notes [facility] Name: Carrington Dumont Age: 48 yrs Sex: Male : 1975 Arrival Date: 09/20/2024 Time: 18:15 Bed 18 Private MD: Diagnosis: Angina pectoris, unspecified Presentation: 09/20 18:55 Chief complaint: Patient states: chest pain that began 2 days ago and got worse today, aa5 pt reports he is getting chest pain episodes every 30 minutes and feels like when he had coronary stent placed back in January 2024. Coronavirus screen: At this time, the client does not indicate any symptoms associated with coronavirus-19. Ebola Screen: Patient denies travel to an Ebola-affected area in the 21 days before illness onset. Initial Sepsis Screen: Does the patient meet any 2 criteria? HR > 90 bpm. Does the patient have a suspected source of infection? No. Patient's initial sepsis screen is negative. Risk Assessment: Do you want to hurt yourself or someone else? Patient reports no desire to harm self or others. Onset of symptoms was September 18, 2024. 18:55 Acuity: DAYANNA 2 aa5 18:55 Method Of Arrival: Ambulatory aa5 Historical: - Allergies: 18:55 PENICILLINS; aa5 - PMHx: 18:55 coronary atherosclerosis; Hypertension; Hypothyroidism; aa5 - PSHx: 18:55 Cholecystectomy; Stented artery; aa5 - Immunization history:: Adult Immunizations unknown. - Infectious Disease History:: Denies. - Social history:: Smoking status: Patient reports the use of cigarette tobacco products. Screenin:11 [facility] ED Fall Risk Assessment (Adult) History of falling in the last 3 months, cp4 including since admission No falls in past 3 months (0 pts) Confusion or Disorientation No (0 pts) Intoxicated or Sedated No (0 pts) Impaired Gait No (0 pts) Mobility Assist Device Used No (0 pt) Altered Elimination No (0 pt) Score/Fall Risk Level 0 - 2 = Low Risk Oriented to surroundings, Maintained a safe environment, Assessed \T\ reinforced patient's understanding of fall precautions, Hourly rounding (assess needs \T\ fall precautionary measures) done. Abuse screen: Denies threats or abuse. Nutritional screening: No deficits noted. Tuberculosis screening: No symptoms or risk factors identified. Assessment: 20:11 General: Appears in no apparent distress. uncomfortable, Behavior is calm, cooperative, cp4 appropriate for age. Pain: Complains of pain in chest Pain does not radiate. Pain began suddenly. Neuro: Level of Consciousness is awake, alert, obeys commands, Oriented to person, place, time, situation. Cardiovascular: Reports chest pain, shortness of breath, Patient's skin is warm and dry. Rhythm is sinus rhythm. Respiratory: Airway is patent Respiratory effort is even, unlabored. GI: No signs and/or symptoms were reported involving the gastrointestinal system. : No signs and/or symptoms were reported regarding the genitourinary system. EENT: No signs and/or symptoms were reported regarding the EENT system. 20:11 Reassessment: Patient reporting chest pain unrelieved by morphine. Provider notified. cp4 21:19 Reassessment: Patient reporting chest pain unrelieved by nitro. Provider notified. cp4 22:27 Reassessment: Patient reporting chest pain unrelieved by fentanyl. Provider notified cp4 and in room with patient. 23:30 Reassessment: Patient and/or family updated on plan of care and expected duration. Pain cp4 level reassessed. Patient is alert, oriented x 3, equal unlabored respirations, skin warm/dry/pink. Vital Signs: 18:55 Weight 108.86 kg (R); Height 5 ft. 8 in. (R); aa5 18:55 BP 166 / 109; Pulse 93; Resp 20 S; Temp 98.6(O); Pulse Ox 99% on R/A; aa5 20:11 BP 151 / 73; Pulse 95; Resp 18; Pulse Ox 93% on 2 lpm NC; cp4 20:51 BP 138 / 81; Pulse 88; Resp 18; Pulse Ox 94% on 2 lpm NC; cp4 22:10 BP 122 / 73; Pulse 76; Resp 18; Pulse Ox 97% on 2 lpm NC; cp4 23:04 BP 131 / 77; Pulse 81; Resp 18; Pulse Ox 97% on 2 lpm NC; cp4 09/21 00:50 BP 113 / 67; Pulse 74; Resp 18; Pulse Ox 97% on 2 lpm NC; cp4 09/20 18:55 Body Mass Index 36.49 (108.86 kg, 172.72 cm) aa5 ED Course: 09/20 18:18 Patient arrived in ED. mg5 18:24 Marc Vega PA is [facility]. cp 18:24 Landen Atkinson MD is Attending Physician. cp 18:55 Arm band placed on. EKG completed in triage. Results shown to MD. aa5 18:57 Triage completed. aa5 19:06 Evelyn Corrigan is Primary Nurse. cp4 19:16 XRAY Chest (1 view) In Process Unspecified. EDMS 20:11 Placed in gown. Bed in low position. Call light in reach. Side rails up X2. Client cp4 placed on continuous cardiac and pulse oximetry monitoring. NIBP monitoring applied. 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 Pulse ox on. NIBP on. 20:11 No provider procedures requiring assistance completed. Inserted saline lock: 20 gauge cp4 in right antecubital area, using aseptic technique. Blood collected. Flushed with 10 mL NS. Oxygen administration via nasal cannula \T\ 2L/min. 21:04 CT Chest For PE Angio In Process Unspecified. EDMS 22:03 EKG done, by ED staff, reviewed by Marc BLANK. cp4 22:33 Narciso Neely MD is Hospitalizing Provider. cp 12 00:50 Provided Education on: admission. cp4 00:50 Patient admitted, IV remains in place. cp4 Administered Medications: 09/20 19:30 Drug: Aspirin PO Chewable Tablet 324 mg PO once; 81 mg tablets x 4 Route: PO; cp4 23:04 Follow up: Response: No adverse reaction cp4 19:30 Drug: morphine IVP or IV 4 mg IVP once over 4 mins Route: IVP; Infused Over: 4 mins; cp4 Site: right antecubital; 20:14 Follow up: Response: No adverse reaction; Pain is decreased cp4 19:30 Drug: Ondansetron IVP 4 mg IVP once; over 2 minutes Route: IVP; Site: right antecubital;cp4 20:14 Follow up: Response: No adverse reaction cp4 19:30 Drug: Famotidine IVP 20 mg IVP once; dilute with 10 mL 0.9% NaCl; give over 2 minutes cp4 Route: IVP; Site: right antecubital; 20:14 Follow up: Response: No adverse reaction cp4 20:15 Drug: Nitroglycerin Sublingual 0.4 mg Sublingual once Route: Sublingual; cp4 21:20 Follow up: Response: No adverse reaction; Pain is unchanged, physician notified cp4 21:28 Drug: Ativan IVP 1 mg IVP once Route: IVP; Site: right antecubital; cp4 22:25 Follow up: Response: No adverse reaction cp4 22:10 Drug: fentaNYL (PF) IVP 50 mcg IVP once Route: IVP; Site: right antecubital; cp4 22:25 Follow up: Response: No adverse reaction; Pain is unchanged, physician notified cp4 22:37 Drug: Pantoprazole IVP 40 mg IVP once Route: IVP; Site: right antecubital; cp4 23:03 Follow up: Response: No adverse reaction cp4 22:37 Drug: GI Cocktail without - (Maalox PO 30 ml, Lidocaine Mucous Membrane 2 % 15 cp4 ml) PO once Route: PO; 23:03 Follow up: Response: No adverse reaction cp4 Medication: 20:11 VIS not applicable for this client. cp4 Outcome: 22:34 Decision to Hospitalize by Provider. cp 12 00:50 Admitted to ER Hold. Please see [facility] for further documentation. cp4 Condition: stable Instructed on the need for admit, 13:44 Patient left the ED. rs5 Signatures: Dispatcher [employer] Megan Medina RN RN aa5 Marc Vega PA PA cp Sotelo, Ricky, RN RN rs5 Lisseth Womack5 Evelyn Corrigan cp4
[2024-09-21] MEDS ORDERED: ACETAMINOPHEN 325 MG TABLET PO PRN (00:39)
[2024-09-21] MEDS ORDERED: ONDANSETRON 4 MG/2 ML VIAL IV PRN (00:39)
--- NOTE | 2024-09-21 00:39 | P.HP ---
Certification for Inpatient Patient admitted to: Observation With expected LOS: <2 Midnights Practitioner: I am a practitioner with admitting privileges, knowledge of patient current condition, hospital course, and medical plan of care. Services: Services provided to patient in accordance with Admission requirements found in Title 42 Section 412.3 of the Code of Federal Regulations Patient History Date of Service: 09/21/24 Reason for admission: Chest pain History of Present Illness: 48 yrs old Male with past medical history hypertension hyperlipidemia, hypothyroidism, CAD status post PCI and stents, obesity who was brought to ER with chest pain. Retrosternal location, pressure-like, nonradiating not associated with any diaphoresis. No nausea vomiting or diarrhea. Denies any fever or chills. No Cough. No sick contacts. At the time of interview pain is 8 out of 10 in severity. Patient was assessed in the ER and is admitted for further management of chest pain to rule out ACS Allergies Penicillins Allergy (Intermediate, Verified 03/10/24 01:47) Hives/Rash Home medications list reviewed: Yes Home Medications: Levothyroxine Sodium [Synthroid] 1 tab PO DAILY 02/05/24 Aspirin Chewable [Aspirin Chewable*] 81 mg PO DAILY #30 tab.chew 02/07/24 Metoprolol Tartrate 12.5 mg PO BID #30 tab 02/07/24 Atorvastatin Calcium [Lipitor] 40 mg PO BEDTIME 05/30/24 Clopidogrel Bisulfate [Plavix] 75 mg PO DAILY 05/30/24 - Past Medical/Surgical History Diabetic: Yes Past Medical History: Reviewed- Non-Contributory -: DM -: HTN -: HYPOTHYROIDISM -: MD, PCI, 02/10 Past Surgical History: Reviewed- Non-Contributory -: RAMIRO -: PCI - Family History Mother -: Hypertension Father -: Hypertension, Diabetes - Social History Smoking Status: Never smoker Alcohol use: No CD- Drugs: No Caffeine use: Yes Review of Systems 10-point ROS is otherwise unremarkable Physical Examination - Vital Signs Temperature: 97.2 F Blood Pressure: 138/76 Pulse: 70 Respirations: 18 Pulse Ox (%): 94 - Physical Exam General: Alert, Oriented x3, Mild distress, Obese HEENT: Atraumatic, Normocephalic Neck: Supple, No Thyromegaly Respiratory: Clear to auscultation bilaterally, Normal air movement Cardiovascular: No edema, Regular rate/rhythm, Normal S1 S2 Capillary refill: <2 Seconds Gastrointestinal: Soft and benign, W/out hepatosplenomegaly Musculoskeletal: No clubbing, No swelling Integumentary: No rashes, No breakdown Neurological: Normal gait, Normal speech, Normal strength at 5/5 x4 extr, Cranial nerves 3-12 intact, Normal reflexes 2+ Lymphatics: No axilla or inguinal lymphadenopathy - Studies Laboratory Data (last 24 hrs) 09/20/24 09/20/24 09/20/24 19:18 19:18 19:18 WBC 12.80 H Hgb 15.7 Hct 46.4 Plt Count 298 PT 11.2 INR 1.00 Sodium 137 Potassium 3.7 BUN 17 Creatinine 1.26 Glucose 115 H Magnesium 2.2 Total Bilirubin 0.3 AST 13 L ALT 22 Alkaline Phosphatase 88 Assessment and Plan - Plan Unstable angina Will trend cardiac enzymes Will monitor telemetry Started on aspirin and statin and Plavix EKG did not show any acute changes suggestive of ischemia Will get an echocardiogram Cardiology consult Hypertension Antihypertensives titrated Continue home medications and titrate as needed Hyperlipidemia Continue statin CAD status post stents Monitor closely under telemetry Continue home medications and titrate as needed Hypothyroidism Continue home medications Obesity Advise lifestyle modification Will get a lipid panel and A1c GI/DVT prophylaxis Advanced directive full code Discharge Plan: Home Plan to discharge in: 24 Hours - Advance Directives Does patient have a Living Will: No Does patient have a Durable POA for Healthcare: No - Code Status/Comfort Care Code Status: Full Code Time Spent Managing Pts Care (In Minutes): 48
[2024-09-21] MEDS ORDERED: HYDROCODONE/APAP 5/325 MG TAB ONE ×2 (01:18→05:59)
[2024-09-21] MEDS: HYDROCODONE/APAP 5/325 MG TAB PO PRN (01:20)
[2024-09-21 01:27] VITALS: BMI 36.3
[2024-09-21] MEDS ORDERED: MORPHINE 2 MG/ML SYR ONE ×4 (03:27→12:56)
[2024-09-21] MEDS: MORPHINE 2 MG/ML SYR IV PRN (03:33)
[2024-09-21] MEDS ORDERED: LEVOTHYROXINE SOD 0.05 MG TABLET ONE (05:57)
[2024-09-21] MEDS: LEVOTHYROXINE SOD 0.1 MG TAB PO SCH (06:02)
[2024-09-21 06:29] LABS: Troponin High Sensitivity 52.2 pg/mL (<58.9)
[2024-09-21 06:33] LABS: Thyroid Stimulating Hormone 74.4 uIU/mL (0.358-3.740)
[2024-09-21] MEDS ORDERED: CLOPIDOGREL 75 MG TABLET ONE (07:44)
[2024-09-21] MEDS ORDERED: METOPROLOL TAR 25 MG TAB ONE (07:44)
[2024-09-21] MEDS ORDERED: ENOXAPARIN 40 MG/0.4 ML SQ ONE (07:45)
[2024-09-21] MEDS ORDERED: ASPIRIN EC 81 MG TAB PO ONE (07:45)
[2024-09-21] MEDS ORDERED: ATORVASTATIN 40 MG TAB ONE (07:45)
[2024-09-21] MEDS: FLU (Fluarix Triv) TS24-25(6MOS UP)/PF 45 MCG/0.5 ML Syringe IM ONE (08:00)
[2024-09-21 08:02] LABS: Absolute Basophils 0.1 K/uL (0-0.5); Absolute Eosinophils 0.2 K/uL (0-0.5); Absolute Lymphocytes (CBC) 2.2 K/uL (0.7-4.9); Absolute Monocytes 0.7 K/uL (0.1-1.3); Absolute Neutrophil 5.6 K/uL (1.8-8.0); Basophils % 0.8 % (0-1.3); Eosinophils % 2.3 % (0-4.4); Hematocrit 46.1 % (39.6-49.0); Hemoglobin 15.4 g/dL (13.6-17.9); Lymphocytes % 25.6 % (15.3-44.8); MCH 30.9 pg (27.0-35.0); MCHC 33.4 g/dL (32.0-36.0); MCV 92.6 fL (80-100); MPV 7.4 fL (7.6-11.3); Monocytes % 7.7 % (3.3-12.3); Neutrophils % 63.6 % (41.7-73.7); Nucleated Red Blood Cells % 0.1 % (0-0); Platelets 293 thou/uL (152-406); RBC Red Blood Cell Count 4.98 M/uL (4.33-5.43); Red Cell Distribution Width 14.2 % (12.1-15.2)
[2024-09-21 08:12] LABS: Magnesium 2.3 mg/dL (1.6-2.4)
[2024-09-21] MEDS: CLOPIDOGREL 75 MG TABLET PO SCH (09:00)
[2024-09-21] MEDS: ENOXAPARIN 40 MG/0.4 ML SQ SCH (09:00)
[2024-09-21] MEDS: ASPIRIN 81 MG CHEWABLE TABLET PO SCH (09:00)
[2024-09-21] MEDS: METOPROLOL TAR 25 MG TAB PO SCH (09:00)
--- NOTE | 2024-09-21 11:48 | P.CNS ---
Date of Consult: 09/21/24 Chief Complaint: Chest pain History of Present Illness: Patient with PMH of CAD s/p PCI RCA that was done early this year, with mild to moderate CAD, presented with chest pressure sensation that started few days ago, pressure in nature, no radiation but feels the same when he had his NM in the past, denies any other cardiac symptoms. Allergies Penicillins Allergy (Intermediate, Verified 03/10/24 01:47) Hives/Rash Home medications list reviewed: Yes Home Medications: Levothyroxine Sodium [Synthroid] 1 tab PO DAILY 02/05/24 Aspirin Chewable [Aspirin Chewable*] 81 mg PO DAILY #30 tab.chew 02/07/24 Metoprolol Tartrate 12.5 mg PO BID #30 tab 02/07/24 Atorvastatin Calcium [Lipitor] 40 mg PO BEDTIME 05/30/24 Clopidogrel Bisulfate [Plavix] 75 mg PO DAILY 05/30/24 - Past Medical/Surgical History Diabetic: Yes -: DM -: HTN -: HYPOTHYROIDISM -: NM, PCI, 02/10 -: RAMIRO -: PCI - Family History Mother Medical History: Hypertension Father Medical History: Hypertension, Diabetes - Social History Smoking Status: Current every day smoker Alcohol use: No CD- Drugs: No Caffeine use: Yes Review of Systems 10-point ROS is otherwise unremarkable Physical Examination Temp Pulse Resp BP Pulse Ox 98 F 68 18 140/81 96 09/21/24 03:34 09/21/24 03:34 09/21/24 06:02 09/21/24 03:34 09/21/24 06:02 General: Alert, In no apparent distress HEENT: Atraumatic, PERRLA, Mucous membr. moist/pink, EOMI, Sclerae nonicteric Neck: Supple, 2+ carotid pulse no bruit, No LAD, Without JVD or thyroid abnormality Respiratory: Clear to auscultation bilaterally, Normal air movement Cardiovascular: Regular rate/rhythm, Normal S1 S2 Gastrointestinal: Normal bowel sounds, No tenderness Musculoskeletal: No tenderness Integumentary: No rashes Neurological: Normal gait, Normal speech, Normal tone, Normal affect Lymphatics: No axilla or inguinal lymphadenopathy Laboratory Data (last 24 hrs) 09/20/24 09/20/24 09/20/24 19:18 19:18 19:18 WBC 12.80 H Hgb 15.7 Hct 46.4 Plt Count 298 PT 11.2 INR 1.00 Sodium 137 Potassium 3.7 BUN 17 Creatinine 1.26 Glucose 115 H Magnesium 2.2 Total Bilirubin 0.3 AST 13 L ALT 22 Alkaline Phosphatase 88 - Problems (1) Chest pain Current Visit: Yes Status: Acute Plan: with recent PCI RCA with moderate mid LAD, severe distal LAD and moderate LCX/OM disease, presenting with unstable angina despite being on medical therapy NPO for coronary angiogram continue ASA 81 mg daily continue Plavix 75 mg daily continue Lipitor 40 mg daily (2) HLD (hyperlipidemia) Current Visit: No Status: Acute Plan: continue lipitor 40 mg daily (3) HTN (hypertension) Current Visit: No Status: Acute Plan: continue lopressor 12.5 mg po BID
--- NOTE | 2024-09-21 12:28 | P.PN ---
Date of Service: 09/21/24 Subjective: ongoing chest pain feels like back when he had is stent placed in january no significant change morphine helps temporarily reports he has been taking his medications as prescribed ROS: 10 point ROS as noted above, otherwise negative Physical Exam: GEN: Alert, NAD CV: Regular rate and rhythm, no edema Pulm: Nonlabored respirations on room air, clear bilaterally ABD: soft, nontender, nondistended Neuro: Normal speech, normal affect Problem List: Chest pain hx CAD s/p PCI (01/2024) Hypertension Hyperlipidemia Hypothyroidism Chest pain hx CAD s/p PCI (01/2024) CXR, CTA chest both negative for any acute findings. troponins negative x4. Monitor on telemetry continue plavix, statin, asa 81mg, metoprolol Cardiology consulted given his recent PCI on 01/2024 for critical mid RCA stenosis, moderate CAD elsewhere, cardiology considering LHC vs repeat stress testing NPO for tentative LHC today Hypertension Hyperlipidemia Hypothyroidism confirm home meds, restart as appropriate TSH significantly elevated. pt reports taking his synthroid at home and had normal labs ~2 months ago will recheck in AM, adjust dose if needed VTE: Lovenox Code: Full Dispo: Home Pending LHC, cardio recs Time Spent Managing Pts Care (In Minutes): 55
[2024-09-21] MEDS: NITROGLYCERIN 0.4 MG/TAB SL PRN (17:24)
[2024-09-21] MEDS: ZOLPIDEM TARTRATE 10 MG TABLET PO ONE (20:38)
[2024-09-21] MEDS: ATORVASTATIN 40 MG TAB PO SCH (20:38)
[2024-09-22 06:26] LABS: Absolute Basophils 0.1 K/uL (0-0.5); Absolute Eosinophils 0.2 K/uL (0-0.5); Absolute Lymphocytes (CBC) 1.9 K/uL (0.7-4.9); Absolute Monocytes 0.5 K/uL (0.1-1.3); Absolute Neutrophil 5.5 K/uL (1.8-8.0); Basophils % 0.7 % (0-1.3); Eosinophils % 2.5 % (0-4.4); Hematocrit 46.1 % (39.6-49.0); Hemoglobin 15.2 g/dL (13.6-17.9); Lymphocytes % 23.2 % (15.3-44.8); MCH 30.6 pg (27.0-35.0); MPV 7.4 fL (7.6-11.3); Monocytes % 6.1 % (3.3-12.3); Neutrophils % 67.5 % (41.7-73.7); Nucleated Red Blood Cells % 0.1 % (0-0); Platelets 291 thou/uL (152-406); RBC Red Blood Cell Count 4.96 M/uL (4.33-5.43); Red Cell Distribution Width 13.8 % (12.1-15.2)
[2024-09-22 06:41] LABS: Albumin 3.5 g/dL (3.4-5.0); Albumin/Globulin Ratio 0.9 (1.1-1.8); Bilirubin Total 0.6 mg/dL (0.2-1.0); Globulin 4.1 g/dL (2.3-3.5); Protein, Total 7.6 g/dL (6.4-8.2); Troponin High Sensitivity 47.4 pg/mL (<58.9)
[2024-09-22 06:43] LABS: Thyroid Stimulating Hormone 56.3 uIU/mL (0.358-3.740)
--- NOTE | 2024-09-22 09:04 | P.PN ---
Date of Service: 09/22/24 Subjective: chest pain ~same denies trouble breathing planning for stress test today family updated at bedside no events overnight ROS: 10 point ROS as noted above, otherwise negative Physical Exam: GEN: Alert, NAD CV: Regular rate and rhythm, no edema Pulm: Nonlabored respirations on room air, clear bilaterally ABD: soft, nontender, nondistended Neuro: Normal speech, normal affect Problem List: Chest pain hx CAD s/p PCI (01/2024) Hypertension Hyperlipidemia Hypothyroidism Chest pain hx CAD s/p PCI (01/2024) CXR, CTA chest both negative for any acute findings. troponins negative x4. Monitor on telemetry continue plavix, statin, asa 81mg, metoprolol Cardiology consulted given his recent PCI on 01/2024 for critical mid RCA stenosis, moderate CAD elsewhere, cardiology recommending repeat stress testing stress today positive cardio planning LHC tomorrow NPO after midnight Hypertension Hyperlipidemia Hypothyroidism confirm home meds, restart as appropriate TSH significantly elevated. pt reports taking his synthroid at home and had normal labs ~2 months ago repeat TSH 74.4 -> 56.3 (09/22) repeat thyroid studies in 2-3 months VTE: Lovenox Code: Full Dispo: Home Pending cath tomorrow Time Spent Managing Pts Care (In Minutes): 55
[2024-09-22] MEDS ORDERED: REGADENOSON 0.4 MG/5 ML SYR IV ONE (09:52)
--- NOTE | 2024-09-22 11:55 | RAD REPORT ---
EXAM: Nuclear medicine cardiac perfusion examination with ejection fraction HISTORY: 05/31/2024 TECHNIQUE: Rest images: 10.6 mCi technetium 99m sestamibi Stress images: 31.1 mCi of technetium 99m sestamibi; Lexiscan COMPARISON: None FINDINGS: Tomographic images: Lateral wall, slightly inferior, mid to basal segment, moderate-sized reversible defect. Smaller fixed defect appreciated along the anterior wall mid to apical segments, stable, may relate to sequelae of a small remote infarct. Gated images: Normal wall motion and ejection fraction of 55%. EDV: 113 mL ESV: 50mL TID: 0.77 IMPRESSION: New lateral wall slightly inferior mid to basal segment reversible defect, suggesting reversible isch emia. Left ventricular ejection fraction:55%, within normal limits.
--- NOTE | 2024-09-22 14:28 | TREADMILL ---
70% H.R.: 122 85% H.R.: 148 90% H.R.: 157 100% H.R.: 174 DX: ANGINA Date of Study: 09/22/2024 Ht: 5' 8 " Wt: 239 lb 0 oz Consulting Physician: ONUR MEDICATIONS: NORCO, ASPIRIN, LIPITOR, PLAVIX, LOVENOX, LOPRESSOR, SYNTHROID HISTORY: 48 YEAR OLD MALE HERE FOR ANGINA. HISTORY OF HYPERTENSION, PREVIOUS HEART CATH WITH STENTS, THYROID PHYSICIAL EXAMINATION: RESTING B.P.: 159/97 RESTING H.R.: 75 RESTING EKG: NORMAL SINUS. PROTOCOL: ISRAEL CARDIOLITE SWITCHED TO LEXISCAN EXERCISE TIME: 1405 MAXIMUM HEART RATE: 109 62 % OF PREDICTED B.P. AT [place] STRESS: 191/100 IMPRESSION: ISRAEL CARDIOLITE STRESS TEST PERFORMED. PATIENT UNABLE TO TOLERATE TREADMILL STRESS TEST DUE TO DIZZINESS. TREADMILL STOPPED. DR. HARRELL NOTIFIED AND VERBAL ORDER TAKEN TO PROCEDE WITH LEXISCAN STRESS TEST. LEXISCAN INJECTED PER PROTOCOL. CARDIOLITE INJECTED. SEE NUCLEAR MEDICINE REPORT. COMPLAINTS OF CHEST PRESSURE. NO VENTRICULAR TACHYCARDIA, SUPRAVENTRICULAR TACHYCARDIA, PREMATURE ATRIAL COMPLEXES OR PREMATURE VENTRICULAR COMPLEXES NOTED.
--- NOTE | 2024-09-22 17:04 | P.PN ---
Subjective Date of Service: 09/22/24 Chief Complaint: Chest pain Subjective: No new changes, No C/O voiced, Tolerating diet, Ambulating, Improving Review of Systems 10-point ROS is otherwise unremarkable Physical Examination - Vital Signs Temperature: 98.5 F Blood Pressure: 148/84 Pulse: 74 Respirations: 16 Pulse Ox (%): 97 - Physical Exam General: Alert, In no apparent distress HEENT: Atraumatic, PERRLA, EOMI Neck: Supple, JVD not distended Respiratory: Clear to auscultation bilaterally, Normal air movement Cardiovascular: Regular rate/rhythm, Normal S1 S2 Gastrointestinal: Normal bowel sounds, No tenderness Musculoskeletal: No tenderness Integumentary: No rashes Neurological: Normal speech, Normal tone, Normal affect Lymphatics: No axilla or inguinal lymphadenopathy - Studies Medications List Reviewed: Yes Assessment And Plan - Current Problems (Diagnosis) (1) Chest pain Current Visit: Yes Status: Acute Plan: with recent PCI RCA with moderate mid LAD, severe distal LAD and moderate LCX/OM disease Stress test shows mild reversible inferior and lateral wall perfusion defects NPO for coronary angiogram continue ASA 81 mg daily continue Plavix 75 mg daily continue Lipitor 40 mg daily (2) HLD (hyperlipidemia) Current Visit: No Status: Acute Plan: continue lipitor 40 mg daily (3) HTN (hypertension) Current Visit: No Status: Acute Plan: continue lopressor 12.5 mg po BID
[2024-09-23 06:59] LABS: Anion Gap 7.9 mEq/L (5.0-15.0); Magnesium 2.3 mg/dL (1.6-2.4); Potassium 3.9 mEq/L (3.5-5.1)
--- NOTE | 2024-09-23 08:23 | P.PN ---
Date of Service: 09/23/24 Subjective: doing okay, doesn't feel worse chest pain not as severe no events overnight plan for heart cath today Breathing okay ROS: 10 point ROS as noted above, otherwise negative Physical Exam: GEN: Alert, NAD CV: Regular rate and rhythm, no edema Pulm: Nonlabored respirations on room air, clear bilaterally ABD: soft, nontender, nondistended Neuro: Normal speech, normal affect Problem List: Unstable angina CAD with prior PCI, now s/p PCI to OM2 (09/23) Hypertension Hyperlipidemia Hypothyroidism Unstable angina CAD with prior PCI, now s/p PCI to OM2 (09/23) CXR, CTA chest both negative for any acute findings. troponins negative x4. Monitor on telemetry given his recent PCI on 01/2024 for critical mid RCA stenosis, moderate CAD elsewhere, cardiology recommending repeat stress testing 09/22 stress positive s/p [facility], found to have significant OM2 disease s/p PCI. Also noted moderate mid LAD disease, severe diagonal disease, patent mid RCA stent. continue plavix, statin, asa 81mg, metoprolol cardiology is following Hypertension Hyperlipidemia Hypothyroidism confirm home meds, restart as appropriate TSH significantly elevated. pt reports taking his synthroid at home and had normal labs ~2 months ago repeat TSH 74.4 -> 56.3 (09/22) repeat thyroid studies in 2-3 months VTE: Lovenox Code: Full Dispo: Home, likely tomorrow Pending timing/results of LHC, cardio recs Time Spent Managing Pts Care (In Minutes): 55
[2024-09-23] MEDS: POTASSIUM CL SA 10 MEQ TAB PO ONE (08:56)
[2024-09-23] MEDS: NA CHLORIDE 0.9% 500 ML ONE (09:30)
[2024-09-23] MEDS ORDERED: HEPA 1000U/500MLS 2,000 UNIT/1,000 ML BAG IV ONE (10:19)
[2024-09-23] MEDS ORDERED: HEPARIN 10,000 UNIT/10 ML VIAL IV ONE (10:19)
[2024-09-23] MEDS ORDERED: CLOPIDOGREL 75 MG TABLET ONE (10:20)
[2024-09-23] MEDS ORDERED: LIDOCAINE 1% 20 ML MDV ONE (10:20)
[2024-09-23] MEDS ORDERED: ASPIRIN 325 MG TAB ONE (10:20)
[2024-09-23] MEDS ORDERED: ATROPINE SULF 1 MG/10 ML SYR IV ONE (10:20)
[2024-09-23] MEDS ORDERED: HEPARIN 5000 UNIT/ML 1 ML VIAL ONE (10:20)
[2024-09-23] MEDS ORDERED: TICAGRELOR 90 MG TABLET PO ONE (10:20)
[2024-09-23] MEDS ORDERED: MIDAZOLAM HCL 2 MG/2 ML INJ ONE (10:20)
[2024-09-23] MEDS ORDERED: FENTANYL CITR 100 MCG/2 ML ONE (10:21)
--- NOTE | 2024-09-23 12:02 | P.PN ---
Subjective Date of Service: 09/23/24 Chief Complaint: Chest pain Subjective: No new changes, No C/O voiced, Tolerating diet, Ambulating, Improving Review of Systems 10-point ROS is otherwise unremarkable Physical Examination - Vital Signs Temperature: 98.7 F Blood Pressure: 125/78 Pulse: 65 Respirations: 16 Pulse Ox (%): 93 - Physical Exam General: Alert, In no apparent distress HEENT: Atraumatic, PERRLA, EOMI Neck: Supple, JVD not distended Respiratory: Clear to auscultation bilaterally, Normal air movement Cardiovascular: Regular rate/rhythm, Normal S1 S2 Gastrointestinal: Normal bowel sounds, No tenderness Musculoskeletal: No tenderness Integumentary: No rashes Neurological: Normal speech, Normal tone, Normal affect Lymphatics: No axilla or inguinal lymphadenopathy - Studies Medications List Reviewed: Yes Assessment And Plan - Current Problems (Diagnosis) (1) Chest pain Current Visit: Yes Status: Acute Plan: coronary angiogram done and shown significant OM2 disease s/p PCI with Synergy VANIA, patent mid RCA stent with moderate mid LAD and severe diagonal disease. continue ASA 81 mg daily continue Plavix 75 mg daily continue Lipitor 40 mg daily (2) HLD (hyperlipidemia) Current Visit: No Status: Acute Plan: continue lipitor 40 mg daily (3) HTN (hypertension) Current Visit: No Status: Acute Plan: continue lopressor 12.5 mg po BID
--- NOTE | 2024-09-23 23:21 | OP ---
Date of Procedure: 09/23/2024 Surgeon: Ganga Franks Procedures Performed: 1.Left heart catheterization. 2.Selective coronary angiogram. 3.PCI of the OM2 with Synergy 2.25 x 38 mm drug-eluting stent. Indication For Procedure: History of CAD, unstable angina, abnormal stress test showing inferolatera l ischemia. Complications: None. Estimated Blood Loss: Less than 50 cc. Access: Right radial, closed by TR band. Sedation Time: 30 minutes with 1 of Versed and 50 of fentanyl. Description Of Procedure: After risks, benefits, and alternatives were explained to the patient, the patient agreed to proceed with procedure and signed informed consent. The patient was brought back to the laboratory equipment installer, prepped and draped in sterile fashion. Time-out was performed. Sedation was admini stered. Next, right radial ultrasound-guided micropuncture technique access was obtained. [place] 4 c atheter was advanced over the J-wire to the LV cavity. LVEDP was obtained. Pullback did not show an y gradient. Same catheter was used for selective coronary angiogram of the left and right coronary s ystems. Later on, that catheter was exchanged for an EBU3.5 mm guide. Heparin was administered. AC T was therapeutic. Runthrough wire was passed across the left circ lesion, pre-dilated the lesion wi th an NC 2.25 mm balloon. Next, Synergy 2.25 x 38 mm drug-eluting stent was placed across the lesion , that is postdilated with an NC 2.5 mm balloon. Final angiogram shows SAVI-3 flow. Wire was remove d. Catheter was removed over a J-wire. Sheath was removed. TR band applied. Hemostasis was achiev ed. The patient was moved back to recovery in stable condition. Findings: 1.Left main, normal. 2.LAD, diffuse heavy atherosclerosis with proximal mild luminal irregularities, then mid 50% to 60% disease at the origin of the large diagonal with distal diffuse 50% to 60% disease too. 3.Diagonal 1, large with mid 80% disease, then mild luminal irregularities, bifurcated into 2 branch es. 4.Left circ, proximal 40% to 50% disease, then mild luminal irregularities. 5.OM1, proximal diffuse 60% to 70% disease, then mild luminal regularities. 6.OM2, diffuse 90% to 95% disease, status post PCI as above. 7.RCA, proximal 40% disease, mid stent patent. Distal, mild luminal irregularities. 8.RPDA, diffuse, mild luminal irregularities. 9.RPLV, diffuse, 80% to 90% disease. Assessment: 1.Significant left circ into OM2 disease, status post PCI with Synergy 2.25 x 38 mm drug-eluting keegan nt. 2.Significant diagonal 1 disease with moderate mid LAD disease, recommend aggressive medical managem ent as this will require bifurcation and stenting if intervention is needed. If the patient is sympt omatic, then we will consider PCI of the LAD and diagonal. 3.Significant OM1 disease, also recommend medical management for this lesions and it will require bi furcation, left circ into OM1 stenting which is going to be complex for this patient. 4.Significant RPLV disease, small artery, medical management. Plan: 1.Aspirin 81 mg daily for life. 2.Plavix 300 x1 was given in the laboratory equipment installer, continue Plavix 75 mg daily. 3.Continue aggressive medical treatment for CAD. JAN/DANISHA Voice ID: [id number] Report ID: [id number]
[2024-09-24 04:21] VITALS: O2SAT 97
[2024-09-24 06:27] LABS: Anion Gap 9.1 mEq/L (5.0-15.0); Magnesium 2.3 mg/dL (1.6-2.4); Potassium 4.1 mEq/L (3.5-5.1)
[2024-09-24 07:44] VITALS: BP 139/80
[2024-09-24 09:29] VITALS: TEMP 97.7
--- NOTE | 2024-09-24 10:15 | P.DS ---
Admission Date: 09/21/24 Discharge Date: 09/24/24 Disposition: ROUTINE DISCHARGE Discharge Condition: GOOD Reason for Admission: Chest pain Consultations: Cardiology - Dr. Franks Brief History of Present Illness: 48yo M, PMH: hypertension hyperlipidemia, hypothyroidism, CAD status post PCI and stents, obesity Patient who was brought to ER with chest pain. Retrosternal location, pressure- like, nonradiating not associated with any diaphoresis. No nausea vomiting or diarrhea. Denies any fever or chills. No Cough. No sick contacts. At the time of interview pain is 8 out of 10 in severity. Patient was assessed in the ER and is admitted for further management of chest pain to rule out ACS Hospital Course: Problem List: Unstable angina CAD with prior PCI, now s/p PCI to OM2 (09/23) Hypertension Hyperlipidemia Hypothyroidism Physician discharge instructions: Patient presented with retrosternal pressure-like chest pain. Troponin's were negative x4. CXR, CTA chest both negative for any acute findings. EKG was okay. Cardiology was consulted. Given his recent PCI on 01/2024 for critical mid RCA stenosis, diffuse CAD elsewhere (moderate mid LAD, severe distal LAD and moderate LCX/OM disease), cardiology recommending stress test to further evaluate. Nuclear stress test done 09/22 was positive for stress induced ischemia. Patient subsequently underwent left heart cath on 09/23 which noted significant OM2 disease s/p PCI. Also noted moderate mid LAD disease, severe diagonal disease, patent RCA stent. Patient was monitored overnight, feeling better, chest pain improved, and was deemed stable for discharge. Isosorbide added to help with chest discomfort and blood pressure. Follow up with cardiology in next 2-4 weeks for further management. During the night prior to discharge, patient reported waking up ~3 episodes short of breath. He was monitored on telemetry without any arrhythmias noted during that time. Symptoms sounded most consistent with sleep apnea. He did report a prior history of sleep apnea that improved/resolved after surgery many years ago. TSH was noted to be 56.3 on 09/22. Advised patient to repeat thyroid studies in 6-8 weeks. No change in home medications. Medications: continue home medications as previously prescribed. (aspirin, plavix, atorvastatin, metoprolol, levothyroxine). Imdur 30mg daily Follow up: PCP 3-5 days Cardiology 2-4 weeks Please call to schedule / confirm appointments Physical Exam: GEN: Alert, NAD CV: Regular rate and rhythm, no edema Pulm: Nonlabored respirations on room air, clear bilaterally ABD: soft, nontender, nondistended Neuro: Normal speech, normal affect Vital Signs/Physical Exam: Temp Pulse Resp BP Pulse Ox 97.7 F 68 18 139/80 99 09/24/24 08:00 09/24/24 08:00 09/24/24 08:00 09/24/24 08:00 09/24/24 08:00 Laboratory Data at Discharge: WBC 8.20 thou/uL (4.3-10.9) 09/22/24 05:49 Hgb 15.2 g/dL (13.6-17.9) 09/22/24 05:49 Hct 46.1 % (39.6-49.0) 09/22/24 05:49 Plt Count 291 thou/uL (152-406) 09/22/24 05:49 PT 11.2 SECONDS (9.4-12.5) 09/20/24 19:18 INR 1.00 09/20/24 19:18 Sodium 137 mEq/L (136-145) 09/24/24 05:15 Potassium 4.1 mEq/L (3.5-5.1) 09/24/24 05:15 BUN 13 mg/dL (7-18) 09/24/24 05:15 Creatinine 0.80 mg/dL (0.70-1.30) 09/24/24 05:15 Glucose 112 mg/dL (74-106) H 09/24/24 05:15 Magnesium 2.3 mg/dL (1.6-2.4) 09/24/24 05:15 Total Bilirubin 0.6 mg/dL (0.2-1.0) 09/22/24 05:49 AST 13 U/L (15-37) L 09/22/24 05:49 ALT 21 U/L (16-61) 09/22/24 05:49 Alkaline Phosphatase 87 U/L (45-117) 09/22/24 05:49 Triglycerides 275 mg/dL (<150) H 09/22/24 05:49 Cholesterol 222 mg/dL (<200) H 09/22/24 05:49 HDL Cholesterol 35 mg/dL (40-60) L 09/22/24 05:49 Cholesterol/HDL Ratio 6.34 09/22/24 05:49 Home Medications: Levothyroxine Sodium [Synthroid] 1 tab PO DAILY 02/05/24 Aspirin Chewable [Aspirin Chewable*] 81 mg PO DAILY #30 tab.chew 02/07/24 Metoprolol Tartrate 12.5 mg PO BID #30 tab 02/07/24 Atorvastatin Calcium [Lipitor] 40 mg PO BEDTIME 05/30/24 Clopidogrel Bisulfate [Plavix] 75 mg PO DAILY 05/30/24 Isosorbide Mononitrate [Isosorbide Mononitrate ER] 30 mg PO DAILY 30 Days #30 tab 09/24/24 New Medications: Isosorbide Mononitrate [Isosorbide Mononitrate ER] 30 mg PO DAILY 30 Days #30 tab Physician Discharge Instructions: Physician discharge instructions: Patient presented with retrosternal pressure-like chest pain. Troponin's were negative x4. CXR, CTA chest both negative for any acute findings. EKG was okay. Cardiology was consulted. Given his recent PCI on 01/2024 for critical mid RCA stenosis, diffuse CAD elsewhere (moderate mid LAD, severe distal LAD and moderate LCX/OM disease), cardiology recommending stress test to further evaluate. Nuclear stress test done 09/22 was positive for stress induced ischemia. Patient subsequently underwent left heart cath on 09/23 which noted significant OM2 disease s/p PCI. Also noted moderate mid LAD disease, severe diagonal disease, patent RCA stent. Patient was monitored overnight, feeling better, chest pain improved, and was deemed stable for discharge. Isosorbide added to help with chest discomfort and blood pressure. Follow up with cardiology in next 2-4 weeks for further management. During the night prior to discharge, patient reported waking up ~3 episodes short of breath. He was monitored on telemetry without any arrhythmias noted during that time. Symptoms sounded most consistent with sleep apnea. He did report a prior history of sleep apnea that improved/resolved after surgery many years ago. TSH was noted to be 56.3 on 09/22. Advised patient to repeat thyroid studies in 6-8 weeks. No change in home medications. Medications: continue home medications as previously prescribed. (aspirin, plavix, atorvastatin, metoprolol, levothyroxine). Imdur 30mg daily Follow up: PCP 3-5 days Cardiology 2-4 weeks Please call to schedule / confirm appointments Followup: Ganga Franks MD [ACTIVE - CAN ADMIT] - NONE,NONE [Primary Care Provider] - Time spent managing pt's care (in minutes): 45
== END 2024-09-24 10:40 | disposition home or self-care (01) | DRG 322 ==
LOC: ER 18:15 → ERHOLD 09-21 00:39 → 4TH 09-21 16:10 → OBSVTOIN 09-21 17:43
PROVIDERS: ADMIT Family Medicine; ATTEND Hospitalist
PROC: 027034Z Dilation of Coronary Artery, One Artery with Drug-eluting Intraluminal Device, Percutaneous Approach (ICD-10-PCS; principal; 2024-09-23)
PROC: 4A023N7 Measurement of Cardiac Sampling and Pressure, Left Heart, Percutaneous Approach (ICD-10-PCS; 2024-09-23)
PROC: B2111ZZ Fluoroscopy of Multiple Coronary Arteries using Low Osmolar Contrast (ICD-10-PCS; 2024-09-23)
DX: I25.110 Atherosclerotic heart disease of native coronary artery with unstable angina pectoris (principal); I10 Essential (primary) hypertension; E78.5 Hyperlipidemia, unspecified; E03.9 Hypothyroidism, unspecified; E11.9 Type 2 diabetes mellitus without complications; E66.9 Obesity, unspecified; I25.10 Atherosclerotic heart disease of native coronary artery without angina pectoris; I25.2 Old myocardial infarction; Z88.0 Allergy status to penicillin; Z95.5 Presence of coronary angioplasty implant and graft; Z79.82 Long term (current) use of aspirin; Z68.36 Body mass index [BMI] 36.0-36.9, adult; Z90.49 Acquired absence of other specified parts of digestive tract; Z79.02 Long term (current) use of antithrombotics/antiplatelets; Z79.890 Hormone replacement therapy; Z79.899 Other long term (current) drug therapy
CPT/HCPCS: 36415; 71045; 71275; 76937; 78452; 80048; 80053; 80061; 80076; 82947; 83036; 83735; 83880; 84439; 84443; 84484; 85025; 85610; 92928; 93005; 93017; 93458; 94760; 96374; 96375; 99152; 99285; A9500; C1725; C1887; C1893; G0378; J0461; J1644; J1650; J2003; J2250; J2270; J2405; J2470; J2785; J3010; J7040; Q9967

== ENCOUNTER 2024-10-11 20:06 | Inpatient (IN) | payer SELFPAY ==
--- OUTSIDE RECORDS SUMMARY | 2024-10-11 20:14 | XMS REPORT | Continuity of Care Document ---
Author Name Unknown Address [address] [facility] [place] [address] [facility] Address [address] [facility] [address] [place] [address] Care Team Providers Care [employer] Name Role Phone PCP, PATIENT DOES NOT HAVE A Primary Care Physic bala Unavailable Doctor Unassigned, [place] Attending Clinician U BABS Cohen Attending Clinician Unavailable CHAPITO CONTRERAS Attending Clinician Unavailable CHAPITO CONTRERAS Attending Clinician Unavailable Nidia SOLANO Attending Clinician Unavailable Nidia SOLANO Attending Clinician Unavailable JOSE FRANCISCO WALTERS Attending Clinician Unavailable Jose Francisco Walters MD Attending Clinician [phone] MADELINE TAM Attending Clinician Unavailable MADELINE TAM Attending Clinician Unavailable Madeline Tam DO Attending Clinician [phone] Patrick Garrett Attending Clinician [phone] PATRICK VERGARA Attending Clinician Unavailable MONROE ESCOBAR Attending Clinician Unavailable MONROE ESCOBAR Attending Clinician Unavailable MARIE MORALES Attending Clinician Unavailab Marie Cespedes DO Attending Clinician [phone] LALA CLARKE Attending Clinician Unavailable Lala Clarke DO Attending Clinician [phone] BENJAMIN ASHFORD Attending Clinician Unavailable Benjamin Ashford MD Attending Clinician [phone] Geoff Cardona MD Attending Clinician [phone] GEOFF CARDONA Attending Clinician Unavailable Kiki Mathur MD Attending Clinician [phone] KIKI MATHUR Attending Clinician UnavailGricelda Sherman MD Attending Clinician [phone] MARIBELL CEDILLO Attending Clinician UnavailBABS Garza Admitting Clinician Unavailable JOSE FRANCISCO WALTERS Admitting Clinician Unavailable CHAPITO CONTRERAS Admitting Clinician Unavailable MADELINE TAM Admitting Clinician Unavailable PATRICK VERGARA Admitting Clinician Unavailable Nidia SOLANO Admitting Clinician Unavailable MARIE MORALES Admitting Clinician UnavailGricelda Morales MD Admitting Clinician [phone] EMERGENCY ROOM, EMERGENCY Admitting Clinician Un available Payers Payer Name Policy Type Policy Number Effective Date Expirati on Date Source [facility] [id number] 2023 00:00:00 Problems Condition Name Condition Details Condition Category Status Onset Date Resolution Date Last Treatment Date Treating Clinician Comments Source Obesity (BMI 30-39.9) Obesity (BMI 30-39.9) Disease Active 05-08 00:00: 00 [facility] Cigarette nicotine dependence without complicati on Cigarette nicotine dependence without complicati on Disease Active 2019-10 00:00: 00 [facility] Atypical chest pain Atypical chest pain Disease Active 2019-10 00:00: 00 [facility] Essential hypertensi on Essential hypertensi on Disease Active 2019-10 00:00: 00 [facility] No known active problems No known active problems Disease [facility] Allergies, Adverse Reactions, Alerts Allergy Name Allergy Type Status Severity Reaction(s) Onset Date Inactive Date Treating Clinician Comments Source Penicill in Propensi ty to adverse reaction s Active Unknown - See comments 03-30 00:00: 00 [facility] PENICILL IN DRUG INGREDI Active Unknown-Cmnt 03-30 00:00: 00 [facility] NO KNOWN ALLERGIE S Drug Class Active [facility] Social History Social Habit Start Date Stop Date Quantity Comments Source History of tobacco use Cigarette Smoker [facility] History SDOH Alcohol Frequency [facility] History SDOH Alcohol Std Drinks [facility] History SDOH Alcohol Binge [facility] Alcoholic beverage intake 2024-02-04 00:00:00 2024-02-04 00:00:00 Current drinker of alcohol (finding) [facility] Alcohol intake 2024-02-04 00:00:00 2024-02-04 00:00:00 Current drinker of alcohol (finding) [facility] Exposure to SARS-CoV-2 (event) 2023-02-10 00:00:00 2023-02-20 18:06:00 Not sure [facility] Cigarettes smoked current (pack per day) - Reported 2021-05-08 00:00:00 2021-05-08 00:00:00 [facility] Alcohol Comment 2021-05-08 00:00:00 2021-05-08 00:00:00 6beers on the weekend [facility] Tobacco use and exposure 2021-05-08 00:00:00 2021-05-08 00:00:00 Smokeless tobacco non-user [facility] History of Social function 2020-08-29 00:00:00 2020-08-29 00:00:00 [facility] Sex assigned at 1975 00:00:00 1975 00:00:00 [facility] Smoking Status Start Date Stop Date Source Smokes tobacco daily 2021-05-08 00:00:00 [facility] Medications Ordered Medication Name Filled Medication Name Start Date Stop Date Current Medication? Ordering Clinician Indication Dosage Frequency Signature (SIG) Comments Components Source iopamidol (ISOVUE 370-500 mL) injection 85 mL 02-03 18:00: 00 02-03 18:00 :00 No [id number] 85mL 85 mL, Intravenou s, ONCE, 1 dose, On Fri02/04/24 at 1300, Routine [facility] morpHINE (2 mg/mL) injection 2 mg 02-03 17:45: 00 02-03 18:48 :00 No 2mg 2 mg, Slow IV Push, ONCE, 1 dose, On Fri02/04/24 at 1245, [facility] ondansetron (ZOFRAN (PF)) injection 4 mg 02-03 16:30: 00 02-03 17:15 :00 No 4mg 4 mg, Slow IV Push, ONCE, 1 dose, On Fri02/04/24 at 1130, [facility] ketorolac (TORADOL) injection 15 mg 02-03 16:30: 00 02-03 17:16 :00 No 15mg 15 mg, Slow IV Push, ONCE, 1 dose, On Fri02/04/24 at 1130, [facility] sodium [facility] (NS[facility] 5 mL 02-03 15:28: 49 Yes 5mL 5 mL, Intravenou s, PRN, Starting on Fri02/04/24 at 1028, Until Discontinu ed, Routine, IV line flushing [facility] dicyclomine (BENTYL) injection 20 mg 12-27 09:15: 00 Yes 20mg 20 mg, Intramuscu lar, QID, First dose on Fri12/28/23 at 0415, Until Discontinu ed, Routine [facility] maalox:diph enhydrAMINE :lidocaine 2 % viscous 1:1:1 (FIRST-MOUT HWASH BLM) oral suspension 15 mL 12-27 08:30: 00 12-27 08:27 :00 No 15mL 15 mL, Oral, ONCE, 1 dose, On Fri12/28/23 at 0330, Routine [facility] maalox:diph enhydrAMINE :lidocaine 2 % viscous 1:1:1 (FIRST-MOUT HWASH BLM) oral suspension 15 mL 11-06 07:15: 00 11-06 07:38 :00 No 15mL 15 mL, Oral, ONCE, 1 dose, On 11/06/24 at 0115, Routine [facility] famotidine (PEPCID (PF)) injection 20 mg 11-06 07:15: 00 11-06 07:38 :00 No 20mg 20 mg, Slow IV Push, ONCE, 1 dose, On Ale 24 at 0115, [facility] NaCl 0.9% (NS) bolus infusion 1,000 mL 11-06 07:15: 00 11-06 07:38 :00 No 1000mL at 999 mL/hr, 1,000 mL, IV Infusion, ONCE, 1 dose, On Ale 11/06/23 at 0115, [facility] ondansetron (ZOFRAN (PF)) injection 4 mg 11-06 07:15: 00 11-06 06:19 :00 No 4mg 4 mg, Slow IV Push, ONCE, 1 dose, On Ale 11/06/23 at 0115, [facility] dicyclomine (BENTYL) injection 20 mg 11-06 07:00: 00 11-06 07:00 :00 No 20mg 20 mg, Intramuscu lar, ONCE, 1 dose, On Ale 11/06/23 at 0100, [facility] dicyclomine 20 mg tablet 11-06 00:00: 00 Yes 20mg Take 1 tablet by mouth 4 (four) times daily. Indication s: abdominal pain [facility] famotidine (PEPCID) 40 mg tablet 11-06 00:00: 00 Yes [id number] 40mg Take 1 tablet by mouth daily. [facility] acetaminoph en (TYLENOL) tablet 650 mg 11-01 09:30: 00 11-01 09:30 :00 No 650mg 650 mg, Oral, ONCE, 1 dose, On 11/01/23 at 0330, [facility] iopamidol (ISOVUE 370-500 mL) injection 100 mL 11-01 09:30: 00 11-01 09:30 :00 No [id number] 100mL 100 mL, Intravenou s, ONCE, 1 dose, On 11/01/23 at 0330, Rout[facility] morpHINE (4 mg/mL) injection 4 mg 11-01 07:00: 00 11-01 06:56 :00 No 4mg 4 mg, Slow IV Push, ONCE, 1 dose, On 11/01/23 at 0100, [facility] ketorolac (TORADOL) injection 30 mg 11-01 06:45: 00 11-01 06:00 :00 No 30mg 30 mg, Slow IV Push, ONCE, 1 dose, On 11/01/23 at 0045, [facility] NaCl 0.9% (NS) bolus infusion 1,000 mL 11-01 06:45: 00 11-01 07:59 :00 No 1000mL at 999 mL/hr, 1,000 mL, IV Piggyback, ONCE, 1 dose, On 11/01/23 at 0045, [facility] ondansetron (ZOFRAN (PF)) injection 4 mg 11-01 06:00: 00 11-01 05:59 :00 No 4mg 4 mg, Slow IV Push, ONCE, 1 dose, On 11/01/23 at 0000, [facility] morpHINE (4 mg/mL) injection 4 mg 11-01 06:00: 00 11-01 06:00 :00 No 4mg 4 mg, Slow IV Push, ONCE, 1 dose, On 11/01/23 at 0000, [facility] famotidine (PEPCID) 20 mg tablet 11-01 00:00: 00 Yes [id number] 20mg Take 1 tablet by mouth 2 (two) times daily. [facility] dicyclomine 20 mg tablet 11-01 00:00: 00 Yes [id number] 20mg Take 1 tablet by mouth 3 (three) times daily as needed for Abdominal pain. [facility] iopamidol (ISOVUE 370-500 mL) injection 100 mL 10-23 08:00: 00 10-23 08:00 :00 No [id number] 100mL 100 mL, Intravenou s, ONCE, 1 dose, On Ale 10/23/23 at 0200, Routine [facility] FENTanyl PF (SUBLIMAZE (PF)) injection 50 mcg 10-23 08:00: 00 10-23 07:01 :00 No 50ug 50 mcg, Slow IV Push, ONCE, 1 dose, On Ale 10/23/23 at 0200, Routine [facility] ketorolac (TORADOL) injection 30 mg 10-23 07:15: 00 10-23 06:08 :00 No 30mg 30 mg, Slow IV Push, ONCE, 1 dose, On Ale 10/23/23 at 0115, Routine [facility] ondansetron (ZOFRAN (PF)) injection 4 mg 10-23 06:15: 00 10-23 06:08 :00 No 4mg 4 mg, Slow IV Push, ONCE, 1 dose, On Ale 10/23/23 at 0015, [facility] ketorolac 10 mg tablet 10-23 00:00: 00 Yes [id number] 10mg Take 1 tablet by mouth every 6 (six) hours as needed for Pain (scale 7-10). [facility] iopamidol (ISOVUE 370-500 mL) injection 100 mL 2022-10 07:15: 00 09-26 07:15 :00 No [id number] 100mL 100 mL, Intravenou s, ONCE, 1 dose, On Fri09/26/23 at 0115, Routine [facility] ketorolac (TORADOL) injection 30 mg 2022-10 07:00: 00 09-26 06:12 :00 No 30mg 30 mg, Slow IV Push, ONCE, 1 dose, On Fri09/26/23 at 0100, Routine [facility] NaCl 0.9% (NS) bolus infusion 1,000 mL 2022-10 06:00: 00 09-26 06:15 :00 No 1000mL at 999 mL/hr, 1,000 mL, IV Infusion, ONCE, 1 dose, On Fri09/26/23 at 0000, [facility] morpHINE (4 mg/mL) injection 4 mg 2022-10 05:30: 00 09-26 05:19 :00 No 4mg 4 mg, Slow IV Push, ONCE, 1 dose, On Ale 09/25/23 at 2330, [facility] lactulose (CEPHULAC) solution 60 mL 2022-10 05:15: 00 09-26 05:13 :00 No 60mL 60 mL, Oral, ONCE, 1 dose, On Ale 09/25/23 at 2315, [facility] ondansetron (ZOFRAN (PF)) injection 4 mg 2022-10 05:15: 00 09-26 05:13 :00 No 4mg 4 mg, Slow IV Push, ONCE, 1 dose, On Ale 09/25/23 at 2315, [facility] SEMAGLUTIDE , WEIGHT LOSS, SC 2022-10 02:30: 30 Yes inject under the skin. [facility] iopamidol (ISOVUE 370-500 mL) injection 75 mL 2022-10 09:00: 00 08-24 09:00 :00 No [id number] 75mL 75 mL, Intravenou s, ONCE, 1 dose, On Fri08/24/23 at 0300, Routine [facility] ondansetron (ZOFRAN (PF)) injection 4 mg 2022-10 06:30: 00 08-24 08:15 :00 No 4mg 4 mg, Slow IV Push, ONCE, 1 dose, On Fri08/24/23 at 0130, [facility] morpHINE (4 mg/mL) injection 4 mg 2022-10 06:30: 00 08-24 08:14 :00 No 4mg 4 mg, Slow IV Push, ONCE, 1 dose, On Fri08/24/23 at 0130, [facility] aspirin tablet 325 mg 2022-10 05:15: 00 08-24 05:18 :00 No 325mg 325 mg, Oral, ONCE, 1 dose, On Fri08/24/23 at 0015, [facility] ketorolac (TORADOL) injection 30 mg 07-07 10:45: 00 07-07 09:53 :00 No 30mg 30 mg, Slow IV Push, ONCE, 1 dose, On Fri07/07/23 at 0545, [facility] metoclopram glenroy HCl (REGLAN) injection 10 mg 07-07 09:45: 00 07-07 09:54 :00 No 10mg 10 mg, Slow IV Push, ONCE, 1 dose, On Fri07/07/23 at 0445, [facility] butalbital- acetaminoph en-caff 50-325-40 mg tablet 07-07 00:00: 00 Yes [id number] 1{tbl} Take 1 tablet by mouth every 6 (six) hours as needed (Headache) . [facility] metFORMIN (GLUCOPHAGE ) tablet 500 mg 05-26 13:00: 00 Yes 500mg 500 mg, Oral, BID MEALS, First dose on Fri05/26/23 at 0800, Until Discontinu ed, Routine [facility] ketorolac (TORADOL) injection 15 mg 05-26 03:00: 00 05-26 02:19 :00 No 15mg 15 mg, Slow IV Push, ONCE, 1 dose, On Fri05/25/23 at 2200, [facility] nitroglycer in (NITROL) 2 % ointment 0.5 Inch 05-25 23:30: 00 05-26 01:27 :00 No .5[in_u s] 0.5 Inch, Transderma l (Apply To Skin), ONCE, 1 dose, On Fri05/25/23 at 1830, [facility] maalox:diph enhydrAMINE :lidocaine 2 % viscous 1:1:1 ([facility] oral suspension 15 mL 05-25 23:30: 00 05-26 00:49 :00 No 15mL 15 mL, Oral (Swish & Swallow), ONCE, 1 dose, On [place] 05/25/23 at 1830, [facility] aspirin chewable tablet 324 mg 05-25 23:30: 00 05-25 22:24 :00 No 324mg 324 mg, Oral, ONCE, 1 dose, On [place] 05/25/23 at 1830, Routine [facility] metFORMIN 500 mg tablet 05-25 00:00: 00 Yes [id number] 500mg Take 1 tablet by mouth 2 (two) times daily. [facility] naproxen (NAPROSYN) 500 mg tablet 05-25 00:00: 00 02-03 00:00 :00 No [id number] 500mg Take 1 tablet by mouth 2 (two) times daily with meals. [facility] cloNIDine (CATAPRES) tablet 0.2 mg 02-21 00:45: 00 02-21 01:50 :00 No .2mg 0.2 mg, Oral, ONCE, 1 dose, On [facility] 02/20/23 at 1945, [facility] ibuprofen (IBU) tablet 600 mg 02-20 23:30: 00 02-20 23:30 :00 No 600mg 600 mg, Oral, ONCE, 1 dose, On [facility] 02/20/23 at 1830, [facility] ibuprofen 600 mg tablet 02-20 00:00: 00 02-03 00:00 :00 No [id number] 600mg Take 1 tablet by mouth every 6 (six) hours as needed for Pain (scale 4-6) for up to 30 doses. [facility] iopamidol (ISOVUE 370-500 mL) injection 100 mL 3-12 09:15: 00 12-29 09:15 :00 No [id number] 100mL 100 mL, Intravenou s, ONCE, 1 dose, On 12/29/22 at 0415, Routine [facility] ketorolac (TORADOL) injection 30 mg 12-29 09:00: 00 12-29 07:53 :00 No 30mg 30 mg, Slow IV Push, ONCE, 1 dose, On 12/29/22 at 0400, Routine [facility] ondansetron (ZOFRAN) 4 mg tablet 12-29 00:00: 00 Yes [id number] 4mg Take 1 tablet by mouth every 8 (eight) hours as needed for Nausea and Vomiting (N/V). [facility] tablet 12-29 00:00: 00 Yes [id number] 10mg Take 1 tablet by mouth every 6 (six) hours as needed for Pain (scale 7-10). [facility] maalox:diph enhydrAMINE :lidocaine 2 % viscous 1:1:1 (FIRST-MOUT HWASH BLM) oral suspension 15 mL 11-21 08:45: 00 11-21 08:36 :00 No 15mL 15 mL, Oral, ONCE, 1 dose, On Ale 11/21/22 at 0245, [facility] metoclopram glenroy HCl (REGLAN) tablet 10 mg 06-02 12:30: 00 Yes 10mg 10 mg, Oral, AC, First dose on 06/02/22 at 0730, Until Discontinu ed, Routine [facility] dexamethaso ne (DECADRON PHOSPHATE) injection 10 mg 06-02 06:00: 00 06-02 04:55 :00 No 10mg 10 mg, Oral, ONCE, 1 dose, On 06/02/22 at 0100, Routine [facility] butalbital- acetaminoph en-caff (ESGIC) 50-325-40 mg tablet 1 tablet 06-02 05:00: 00 06-02 04:56 :00 No 1{tbl} 1 tablet, Oral, ONCE, 1 dose, On 06/02/22 at 0000, [facility] diphenhydrA MINE (BENADRYL) tablet 50 mg 06-02 05:00: 00 06-02 04:54 :00 No 50mg 50 mg, Oral, ONCE, 1 dose, On Fri06/02/22 at 0000, [facility] levothyroxi ne (SYNTHROID) tablet 100 mcg 05-29 11:00: 00 Yes 100ug 100 mcg, Oral, QAM-0600, First dose on Fri05/29/22 at 0600, Until Discontinu ed, Routine [facility] levothyroxi ne 200 mcg tablet 05-28 13:18: 02 05-28 00:00 :00 No 300ug Take 300 mcg by mouth every morning. [facility] levothyroxi ne 300 mcg tablet 05-28 00:00: 00 08-27 05:59 :00 No [id number] 300ug Take 1 tablet by mouth every morning for 90 days. [facility] ketorolac (TORADOL) injection 15 mg 05-06 06:30: 00 05-06 05:30 :00 No 15mg 15 mg, Slow IV Push, ONCE, 1 dose, On Fri05/06/22 at 0130, [facility] iopamidol (ISOVUE 370-500 mL) injection 65 mL 05-06 06:00: 00 05-06 06:15 :00 No [id number] 65mL 65 mL, Intravenou s, ONCE, 1 dose, On Fri05/06/22 at 0115, [facility] benzonatate 200 mg capsule 05-06 00:00: 00 Yes [id number] 200mg Take 1 capsule by mouth 3 (three) times daily as needed for Cough for up to 20 doses. [facility] ondansetron 4 mg disintegrat ing tablet 05-06 00:00: 00 Yes [id number] 4mg Take 1 tablet by mouth every 8 (eight) hours as needed for Nausea and Vomiting (N/V). [facility] ibuprofen 600 mg tablet 05-06 00:00: 00 02-20 00:00 :00 No [id number] 600mg Take 1 tablet by mouth every 6 (six) hours as needed for Pain (scale 4-6). [facility] molnupiravi r 200 mg capsule 05-06 00:00: 00 05-12 04:59 :00 No [id number] 800mg Take 4 capsules by mouth every 12 (twelve) hours for 5 days. [facility] magnesium sulfate in water 2 gram/50 mL (4 %) infusion 2 g 05-01 13:45: 00 05-01 14:06 :00 No 2g 2 g, IV Piggyback, Administer over 60 Minutes, ONCE, 1 dose, On Fri05/01/22 at 0845, Rout[facility] diphenhydrA MINE (BENADRYL) injection 50 mg 05-01 12:45: 00 05-01 12:43 :00 No 50mg 50 mg, Slow IV Push, ONCE, 1 dose, On Fri05/01/22 at 0745, STAT [facility] maalox:diph enhydrAMINE :lidocaine 2 % viscous 1:1:1 (FIRST-MOUT [facility]) oral suspension 15 mL 02-08 07:15: 00 02-08 06:14 :00 No 15mL 15 mL, Oral, ONCE, 1 dose, On Fri02/08/22 at 0215, [facility] sucralfate 1 gram tablet 02-08 00:00: 00 Yes [id number] 1g Take 1 tablet by mouth before meals and at bedtime. [facility] ondansetron 4 mg disintegrat ing tablet 02-08 00:00: 00 Yes [id number] 4mg Take 1 tablet by mouth every 4 (four) hours as needed for Nausea and Vomiting (N/V). [facility] pantoprazol e 40 mg EC tablet 02-08 00:00: 00 Yes [id number] 40mg Take 1 tablet by mouth daily. [facility] maalox:diph enhydrAMINE :lidocaine 2 % viscous 1:1:1 (FIRST-MOUT HWASH BLM) oral suspension 15 mL 2020-10 02:15: 00 10-15 01:17 :00 No 15mL 15 mL, Oral, ONCE, 1 dose, On Fri10/14/21 at 2015, [facility] iopamidol (ISOVUE 370-500 mL) injection 120 mL 2020-10 01:45: 00 10-15 00:37 :00 No [id number] 120mL 120 mL, Intravenou s, ONCE, 1 dose, On Fri10/14/21 at 1945, [facility] famotidine (PEPCID (PF)) injection 20 mg 2020-10 00:30: 00 10-15 00:26 :00 No 20mg 20 mg, Slow IV Push, ONCE, 1 dose, On Fri10/14/21 at 1830, [facility] enalapril 20 mg tablet 05-15 17:24: 35 Yes 25mg Take 25 mg by mouth daily. [facility] levothyroxi ne 200 mcg tablet 05-15 17:24: 35 Yes 300ug Take 300 mcg by mouth every morning. [facility] enalapril 20 mg tablet 05-15 12:24: 35 Yes 25mg Take 25 mg by mouth daily. [facility] levothyroxi ne 200 mcg tablet 05-15 12:24: 35 Yes 300ug Take 300 mcg by mouth every morning. [facility] FENTanyl (ACTIQ) lollipop 600 mcg 05-08 19:45: 00 05-08 18:59 :00 No [id number] 600ug 600 mcg, Buccal, ONCE, 1 dose, Fri05/08/21 at 1445, Routine [facility] sulfamethox azole-trime thoprim (BACTRIM DS) 800-160 mg per tablet 05-08 00:00: 00 05-16 04:59 :00 No [id number] 1{tbl} Take 1 tablet by mouth 2 (two) times daily for 7 days. [facility] HYDROcodone -acetaminop hen (NORCO) 10-325 mg tablet 1 tablet 05-06 09:45: 00 05-06 08:44 :00 No 1{tbl} 1 tablet, Oral, ONCE, 1 dose, 05/06/21 at 0445, Routine [facility] sulfamethox azole-trime thoprim 800-160 mg per tablet 05-06 00:00: 00 Yes [id number] 1{tbl} Take 1 tablet by mouth every 12 (twelve) hours. [facility] HYDROcodone -acetaminop hen 5-325 mg tablet 05-06 00:00: 00 05-14 04:59 :00 No [id number] 1{tbl} Take 1 tablet by mouth every 4 (four) hours as needed for Pain (scale 7-10) for up to 7 days. Indication s: acute pain [facility] ketorolac (TORADOL) injection 30 mg 03-15 06:30: 00 03-15 05:44 :00 No 30mg 30 mg, Slow IV Push, ONCE, 1 dose, [facility] 03/15/21 at 0130, Routine
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 : CHAPITO CONTRERAS [facility] enalapril 20 mg tablet 03-15 06:19: 47 Yes 25mg Take 25 mg by mouth daily. [facility] levothyroxi ne 200 mcg tablet 03-15 06:19: 47 Yes 300ug Take 300 mcg by mouth every morning. [facility] iopamidol (ISOVUE 370-500 mL) injection 120 mL 03-15 06:00: 00 03-15 06:00 :00 No [id number] 120mL 120 mL, Intravenou s, ONCE, 1 dose, [facility] 03/15/21 at 0100, Routine [facility] KCL (KLOR-CON M20) tablet 40 mEq 03-15 05:45: 00 03-15 05:01 :00 No 40meq 40 mEq, Oral, ONCE, 1 dose, [facility] 03/15/21 at 0045, Routine [facility] ondansetron (ZOFRAN (PF)) injection 4 mg 03-15 05:30: 00 03-15 04:32 :00 No 4mg 4 mg, Slow IV Push, ONCE, 1 dose, [facility] 03/15/21 at 0030, [facility] FENTanyl PF (SUBLIMAZE (PF)) injection 75 mcg 03-15 05:30: 00 03-15 04:32 :00 No 75ug 75 mcg, Slow IV Push, ONCE, 1 dose, [facility] 03/15/21 at 0030, Routine [facility] traMADoL (ULTRAM) 50 mg tablet 03-15 00:00: 00 Yes [id number] 50mg Take 1 tablet by mouth every 6 (six) hours as needed for Pain (scale 4-6) or Pain (scale 7-10). Indication s: acute pain [facility] methocarbam oL 500 mg tablet 03-15 00:00: 00 Yes [id number] 500mg Take 1 tablet by mouth every 6 (six) hours as needed (MUSCLE SPASM). [facility] ibuprofen 800 mg tablet 03-15 00:00: 00 02-20 00:00 :00 No [id number] 800mg Take 1 tablet by mouth every 8 (eight) hours as needed for Pain (scale 4-6). [facility] pantoprazol e (PROTONIX) 80 mg in NaCl 0.9% (NS) 20 mL syringe 2019-10 00:15: 00 09-08 23:17 :00 No 80mg 80 mg, IV Push, ONCE, 1 dose, 09/08/20 at 1815, 20 mL [facility] maalox:diph enhydrAMINE :lidocaine2 %viscous 1:1:1: suspension (COMPOUNDED ) 2019-10 00:15: 00 09-08 23:16 :00 No 15mL 15 mL, Oral, ONCE, 1 dose, Fri09/08/20 at 1815, Routine [facility] sucralfate 1 gram tablet 2019-10 00:00: 00 Yes [id number] 1g Take 1 tablet by mouth before meals and at bedtime. [facility] dicyclomine (BENTYL) 10 mg capsule 2019-10 00:00: 00 Yes [id number] 10mg Take 1 capsule by mouth every 8 (eight) hours as needed for Abdominal pain. [facility] ondansetron 4 mg disintegrat ing tablet 2019-10 00:00: 00 Yes [id number] 4mg Take 1 tablet by mouth every 8 (eight) hours as needed for Nausea and Vomiting (N/V). [facility] omeprazole 20 mg capsule 2019-10 00:00: 00 10-09 05:59 :00 No [id number] 20mg Take 1 capsule by mouth daily for 30 days. [facility] ketorolac (TORADOL) injection 30 mg 2019-10 20:15: 00 09-06 19:14 :00 No 30mg 30 mg, Slow IV Push, ONCE, 1 dose, Fri09/06/20 at 1415, [facility]
Fa culty member approving Restricted medication : Nidia SOLANO [facility] FENTanyl PF (SUBLIMAZE (PF)) injection 50 mcg 2019-10 18:45: 00 09-06 17:38 :00 No 50ug 50 mcg, Slow IV Push, ONCE, 1 dose, Fri09/06/20 at 1245, STAT [facility] iohexol (OMNIPAQUE 350 BULK-500 mL) injection 150 mL 2019-10 18:15: 00 09-06 17:00 :00 No 150mL 150 mL, Intravenou s, ONCE, 1 dose, Fri09/06/20 at 1215, Routine [facility] ondansetron (ZOFRAN (PF)) injection 4 mg 2019-10 17:30: 00 09-06 16:33 :00 No 4mg 4 mg, Slow IV Push, ONCE, 1 dose, Fri09/06/20 at 1130, [facility] morpHINE injection 4 mg 2019-10 17:30: 00 09-06 16:33 :00 No 4mg 4 mg, Slow IV Push, ONCE, 1 dose, Fri09/06/20 at 1130, STAT [facility] ibuprofen 600 mg tablet 2019-10 00:00: 00 03-14 00:00 :00 No [id number] 600mg Take 1 tablet by mouth every 6 (six) hours as needed for Pain (scale 4-6). [facility] Polyethylen e Glycol 3350 (MIRALAX) powder 17 g 2019-10 13:00: 00 08-30 11:55 :00 No 17g 17 g, Oral, ONCE, 1 dose, Fri08/30/20 at 0700, Routine [facility] aspirin 81 mg chewable tablet 2019-10 00:00: 00 09-30 05:59 :00 No [id number] 81mg Take 1 tablet by mouth daily for 30 days. [facility] levothyroxi ne 125 mcg tablet 2019-10 23:22: 41 08-29 00:00 :00 No 300ug Take 300 mcg by mouth every morning. [facility] lisinopriL 30 mg tablet 2019-10 23:22: 41 08-29 00:00 :00 No 25mg Take 25 mg by mouth daily. [facility] ondansetron (ZOFRAN (PF)) injection 4 mg 2019-10 23:15: 07 08-31 23:14 :07 No 4mg 4 mg, Slow IV Push, Q6HPRN, Starting Fri08/29/20 at 1715, Until Fri08/31/20 at 1714, Routine, Nausea and Vomiting (N/V) [facility] morpHINE injection 2 mg 2019-10 22:49: 42 08-30 22:48 :42 No 2mg 2 mg, Slow IV Push, Q4HPRN, Starting Fri08/29/20 at 1649, Until Fri08/30/20 at 1648, Routine, Pain (scale 7-10) [facility] ondansetron (ZOFRAN (PF)) injection 4 mg 2019-10 18:03: 34 08-29 22:50 :21 No 4mg 4 mg, Slow IV Push, Q6HPRN, Starting Fri08/29/20 at 1203, Until Fri08/29/20 at 1650, Routine, Nausea and Vomiting (N/V) [facility] ibuprofen (IBU) tablet 600 mg 2019-10 18:00: 00 Yes 600mg 600 mg, Oral, Q6H, First dose on Fri08/29/20 at 1200, Until Discontinu ed, Routine [facility] acetaminoph en (TYLENOL) tablet 500 mg 2019-10 18:00: 00 Yes 500mg 500 mg, Oral, Q6H, First dose on Fri08/29/20 at 1200, Until Discontinu ed, Routine [facility] lactated ringers IV infusion 1,000 mL 2019-10 17:00: 00 Yes 1000mL at 75 mL/hr, 1,000 mL, IV Infusion, CONTINUOUS , Starting Fri08/29/20 at 1100, Until Discontinu ed, Routine, PACU [facility] FENTanyl PF (SUBLIMAZE (PF)) injection 25 mcg 2019-10 16:57: 53 08-29 17:58 :11 No 25ug 25 mcg, Slow IV Push, Q5MIN PRN, 4 doses, Starting Fri08/29/20 at 1057, Until Fri08/29/20 at 1158, Routine, Pain (scale 4-6), PACU [facility] ondansetron (ZOFRAN (PF)) injection 4 mg 2019-10 16:57: 53 08-29 17:13 :00 No 4mg 4 mg, Slow IV Push, PRN, 1 dose, Starting Fri08/29/20 at 1057, Until Fri08/29/20 at 1113, Routine, Nausea and Vomiting (N/V), PACU [facility] traMADoL (ULTRAM) tablet 100 mg 2019-10 16:11: 10 08-29 22:51 :09 No 100mg 100 mg, Oral, Q6HPRN, Starting Fri08/29/20 at 1011, Until Fri08/29/20 at 1651, Routine, Pain (scale 7-10) [facility] traMADoL (ULTRAM) tablet 50 mg 2019-10 16:10: 52 Yes 50mg 50 mg, Oral, Q6HPRN, Starting Fri08/29/20 at 1010, Until Discontinu ed, Routine, Pain (scale 4-6) [facility] acetaminoph en ADULT (OFIRMEV) injection 1,000 mg 2019-10 00:15: 00 08-29 16:11 :33 No 1000mg 1,000 mg, IV Infusion, Administer over 15 Minutes, Q6H ABX, 4 doses, First dose on Fri08/28/20 at 1815, Last dose on Fri08/29/20 at 1215, Routine
Indicatio n: Non-periop erative Patient
Approved by: Per Policy (NPO Status) [facility] metroNIDAZO LE in NaCl (iso-os) (FLAGYL I.V.) RTU IV infusion 500 mg 2019-10 00:15: 00 08-29 16:11 :42 No 500mg 500 mg, IV Infusion, Q8H ABX, First dose on Fri08/28/20 at 1815, Until Discontinu ed, 100 mL
Reas on for Anti-Infec tive: Empiric Therapy for Suspected Infection< br>Empiric Therapy Site: Abdominal< br>Duratio n of therapy: 7 days [facility] levoFLOXaci n in D5W (LEVAQUIN) 750 mg/150 mL Piggyback 750 mg 2019-10 00:15: 00 08-29 16:11 :42 No 750mg 750 mg, IV Piggyback, Administer over 90 Minutes, Q24H ABX, First dose on Fri08/28/20 at 1815, Until Discontinu ed, FAWN
Re ason for Anti-Infec tive: Empiric Therapy for Suspected Infection< br>Empiric Therapy Site: Abdominal< br>Duratio n of therapy: 72 hours [facility] levothyroxi ne 125 mcg tablet 2019-10 00:00: 00 09-29 05:59 :00 No [id number] 312.5ug Take 2.5 tablets by mouth every morning for 30 days. [facility] lisinopriL 30 mg tablet 2019-10 00:00: 00 09-29 05:59 :00 No [id number] 30mg Take 1 tablet by mouth daily for 30 days. [facility] pantoprazol e (PROTONIX) 40 mg EC tablet 2019-10 00:00: 00 09-29 05:59 :00 No [id number] 40mg Take 1 tablet by mouth daily for 30 days. [facility] ibuprofen 800 mg tablet 2019-10 00:00: 00 09-04 05:59 :00 No [id number] 800mg Take 1 tablet by mouth every 8 (eight) hours as needed for Pain (scale 4-6) for up to 5 days. [facility] sulfur hexafluorid e microsphr (LUMASON) injection 5 mL 2019-10 21:30: 00 08-28 16:58 :00 No 5mL 5 mL, Intravenou s, ONCE, 1 dose, Fri08/28/20 at 1530, Routine
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 : DARIAN DAVENPORT [facility] morpHINE injection 4 mg 2019-10 20:09: 08 08-29 16:11 :42 No 4mg 4 mg, Slow IV Push, Q4HPRN, Starting Fri08/28/20 at 1409, Until Tu08/29/20 at 1011, Routine, Pain (scale 7-10) [facility] morpHINE injection 2 mg 2019-10 18:15: 00 08-28 17:20 :00 No 2mg 2 mg, Slow IV Push, ONCE, 1 dose, Fri08/28/20 at 1215, Routine [facility] levothyroxi ne (SYNTHROID) tablet 200 mcg 2019-10 12:00: 00 Yes 200ug 200 mcg, Oral, QAM-0600, First dose (after last modificati on) on 08/28/20 at 0600, Until Discontinu ed, Routine [facility] enoxaparin (LOVENOX) injection 40 mg 2019-10 23:00: 00 Yes 40mg 40 mg, Subcutaneo us, DAILY, First dose on 08/27/20 at 1700, Until Discontinu ed, Routine [facility] ketorolac (TORADOL) injection 30 mg 2019-10 15:45: 00 08-27 14:53 :00 No 30mg 30 mg, Slow IV Push, ONCE, 1 dose, 08/27/20 at 0945, Routine
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 : DOMINGO ANNE [facility] lisinopriL (PRINIVIL,Z ESTRIL) tablet 20 mg 2019-10 15:00: 00 Yes 20mg 20 mg, Oral, DAILY, First dose on 08/27/20 at 0900, Until Discontinu ed, Routine [facility] pantoprazol e (PROTONIX) EC tablet 40 mg 2019-10 15:00: 00 Yes 40mg 40 mg, Oral, DAILY, First dose on 08/27/20 at 0900, Until Discontinu ed, Routine [facility] aspirin chewable tablet 81 mg 2019-10 15:00: 00 Yes 81mg 81 mg, Oral, DAILY, First dose on 08/27/20 at 0900, Until Discontinu ed, Routine [facility] levothyroxi ne (SYNTHROID) tablet 300 mcg 2019-10 12:00: 00 08-27 14:38 :59 No 300ug 300 mcg, Oral, QAM-0600, First dose on 08/27/20 at 0600, Until Discontinu ed, Routine [facility] nicotine (NICODERM) 21 mg/24 hr patch 1 Patch 2019-10 08:30: 00 Yes 1{patch } 1 Patch, Topical, Administer over 24 Hours, Q24H, First dose on 08/27/20 at 0230, Until Discontinu ed, Routine [facility] acetaminoph en (TYLENOL) tablet 975 mg 2019-10 08:15: 00 08-27 07:56 :00 No 975mg 975 mg, Oral, ONCE, 1 dose, [place] 08/27/20 at 0215, FAWN [facility] iohexol (OMNIPAQUE 350 BULK-100 mL) injection 120 mL 2019-10 07:45: 00 08-27 07:34 :00 No 120mL 120 mL, Intravenou s, ONCE, 1 dose, [place] 08/27/20 at 0145, Routine [facility] traMADoL (ULTRAM) tablet 50 mg 2019-10 07:16: 43 08-29 07:15 :43 No 50mg 50 mg, Oral, Q8HPRN, Starting [place] 08/27/20 at 0116, Until Fri08/29/20 at 0115, Routine, Pain (scale 4-6) [facility] acetaminoph en (TYLENOL) tablet 650 mg 2019-10 07:16: 41 08-28 23:11 :03 No 650mg 650 mg, Oral, Q6HPRN, Starting [place] 08/27/20 at 0116, Until Fri08/28/20 at 1711, Routine, Pain (scale 1-3) [facility] morpHINE injection 2 mg 2019-10 07:14: 54 08-28 20:09 :18 No 2mg 2 mg, Slow IV Push, Q4HPRN, Starting [place] 08/27/20 at 0114, Until Fri08/28/20 at 1409, Routine, Pain (scale 7-10) [facility] nitroglycer in (NITROSTAT) sublingual tablet 0.4 mg 2019-10 07:03: 30 Yes .4mg 0.4 mg, Sublingual , Q5MIN PRN, Starting [place] 08/27/20 at 0103, Until Discontinu ed, Routine, Chest pain [facility] alum-mag hydroxide-s imeth (MAALOX PLUS / MAG-AL PLUS) 200-200-20 mg/5 mL suspension 30 mL 2019-10 07:02: 48 Yes 30mL 30 mL, Oral, Q6HPRN, Starting 08/27/20 at 0102, Until Discontinu ed, Routine, Indigestio n [facility] aspirin tablet 325 mg 2019-10 07:00: 00 08-27 06:16 :00 No 325mg 325 mg, Oral, ONCE, 1 dose, 08/27/20 at 0100, STAT [facility] nitroglycer in (NITROSTAT) sublingual tablet 0.4 mg 2019-10 07:00: 00 08-27 06:16 :00 No .4mg 0.4 mg, Sublingual , ONCE, 1 dose, 08/27/20 at 0100, [facility] aspirin chewable tablet 324 mg 07-10 14:00: 00 Yes 324mg 324 mg, Oral, DAILY, First dose on Fri07/10/20 at 0900, Until Discontinu ed, Routine [facility] iohexol (OMNIPAQUE 350 BULK-100 mL) injection 120 mL 07-10 05:15: 00 07-10 05:08 :00 No 120mL 120 mL, Intravenou s, ONCE, 1 dose, [facility] 07/10/20 at 0015, Routine [facility] codeine-gua ifenesin (ROBITUSSIN AC) 10-100 mg/5 mL solution 10 mL 07-10 04:30: 00 07-10 03:23 :00 No 10mL 10 mL, Oral, ONCE, 1 dose, [place] 07/09/20 at 2330, [facility] LORazepam (ATIVAN) injection 1 mg 07-10 03:45: 00 07-10 03:14 :00 No 1mg 1 mg, Slow IV Push, ONCE, 1 dose, [place] 07/09/20 at 2245, STAT [facility] morpHINE injection 4 mg 07-10 03:30: 00 07-10 03:16 :00 No 4mg 4 mg, Slow IV Push, ONCE, 1 dose, [place] 07/09/20 at 2230, STAT [facility] pantoprazol e (PROTONIX) 40 mg in NaCl 0.9% (NS) 100 mL MINI-BAG 07-10 02:30: 00 07-10 01:48 :00 No 40mg 40 mg, IV Piggyback, ONCE, 1 dose, 07/09/20 at 2130, 100 mL [facility] ondansetron (ZOFRAN (PF)) injection 4 mg 07-10 02:00: 00 07-10 01:03 :00 No 4mg 4 mg, Slow IV Push, ONCE, 1 dose, 07/09/20 at 2100, FAWN [facility] morpHINE injection 4 mg 07-10 02:00: 00 07-10 01:03 :00 No 4mg 4 mg, Slow IV Push, ONCE, 1 dose, 07/09/20 at 2100, STAT [facility] nitroglycer in (NITROSTAT) sublingual tablet 0.4 mg 07-10 02:00: 00 07-10 01:02 :00 No .4mg 0.4 mg, Sublingual , ONCE, 1 dose, 07/09/20 at 2100, FAWN [facility] pantoprazol e (PROTONIX) 40 mg EC tablet 07-10 00:00: 00 08-29 00:00 :00 No [id number] 40mg Take 1 tablet by mouth daily. [facility] dicyclomine 20 mg tablet 07-10 00:00: 08-29 00:00 :00 No [id number] 20mg Take 1 tablet by mouth every 6 (six) hours as needed for Abdominal pain. [facility] benzonatate 200 mg capsule 07-10 00:00: 08-29 00:00 :00 No [id number] 200mg Take 1 capsule by mouth 3 (three) times daily as needed for Cough. [facility] ibuprofen 800 mg tablet 2018-10 0 00:00: 08-29 00:00 :00 No [id number] 800mg Take 1 tablet by mouth every 8 (eight) hours as needed for Pain (scale 4-6). [facility] cyclobenzap rine 5 mg tablet 03-30 00:00: 00 08-29 00:00 :00 No [id number] 5mg Take 1 tablet by mouth 3 (three) times daily as needed for Muscle Spasms. [facility] LORazepam (ATIVAN) 0.5 mg tablet 06-14 00:00: 00 08-29 00:00 :00 No .5mg Take 1 tablet by mouth 2 (two) times daily as needed for Anxiety. [facility] levothyroxi ne 125 mcg tablet 05-11 10:32: 30 Yes 125ug Take 125 mcg by mouth every morning. [facility] Vital Signs Vital Name Observation Time Observation Value Comments S jeffersonzackary Systolic blood pressure 2024-02-04 18:48:00 142 mm[Hg] [facility] Diastolic blood pressure 2024-02-04 18:48:00 97 mm[Hg] [facility] Heart rate 2024-02-04 18:48:00 84 /min [facility] Respiratory rate 2024-02-04 18:48:00 16 /min [facility] Oxygen saturation in Arterial blood by Pulse oximetry 2024-02-04 18:48:00 97 /min [facility] Body temperature 2024-02-04 15:46:00 36.67 [facility] Body height 2024-02-04 15:46:00 172.7 cm [facility] Body weight 2024-02-04 15:46:00 111.131 kg [facility] BMI 2024-02-04 15:46:00 37.25 kg/m2 [facility] Heart rate 2023-12-28 09:23:00 84 /min [facility] Respiratory rate 2023-12-28 09:23:00 16 /min [facility] Oxygen saturation in Arterial blood by Pulse oximetry 2023-12-28 09:23:00 96 /min [facility] Systolic blood pressure 2023-12-28 09:00:00 131 mm[Hg] [facility] Diastolic blood pressure 2023-12-28 09:00:00 81 mm[Hg] [facility] Body temperature 2023-12-28 08:13:00 37 [facility] Body height 2023-12-28 08:13:00 172.7 cm [facility] Body weight 2023-12-28 08:13:00 110.632 kg [facility] BMI 2023-12-28 08:13:00 37.08 kg/m2 [facility] Systolic blood pressure 2023-11-06 08:00:00 117 mm[Hg] [facility] Diastolic blood pressure 2023-11-06 08:00:00 75 mm[Hg] [facility] Heart rate 2023-11-06 08:00:00 80 /min [facility] Body temperature 2023-11-06 08:00:00 37 [facility] Respiratory rate 2023-11-06 08:00:00 18 /min [facility] Oxygen saturation in Arterial blood by Pulse oximetry 2023-11-06 08:00:00 97 /min [facility] Body height 2023-11-06 05:50:00 172.7 cm [facility] Body weight 2023-11-06 05:50:00 113.309 kg [facility] BMI 2023-11-06 05:50:00 37.98 kg/m2 [facility] Systolic blood pressure 2023-11-01 10:00:00 142 mm[Hg] [facility] Diastolic blood pressure 2023-11-01 10:00:00 81 mm[Hg] [facility] Heart rate 2023-11-01 10:00:00 79 [facility] Body temperature 2023-11-01 10:00:00 37.17 [facility] Respiratory rate 2023-11-01 10:00:00 16 /min [facility] Oxygen saturation in Arterial blood by Pulse oximetry 2023-11-01 10:00:00 94 /min [facility] Body height 2023-11-01 05:37:00 172.7 cm [facility] Body weight 2023-11-01 05:37:00 111.131 kg [facility] BMI 2023-11-01 05:37:00 37.25 kg/m2 [facility] Systolic blood pressure 2023-10-23 08:00:00 140 mm[Hg] [facility] Diastolic blood pressure 2023-10-23 08:00:00 88 mm[Hg] [facility] Heart rate 2023-10-23 08:00:00 89 /min [facility] Oxygen saturation in Arterial blood by Pulse oximetry 2023-10-23 08:00:00 94 /min [facility] Respiratory rate 2023-10-23 05:53:00 16 /min [facility] Body temperature 2023-10-23 05:45:00 36.72 [facility] Body height 2023-10-23 05:45:00 172.7 cm [facility] Body weight 2023-10-23 05:45:00 113.399 kg [facility] BMI 2023-10-23 05:45:00 38.01 kg/m2 [facility] Systolic blood pressure 2023-09-26 08:00:00 159 mm[Hg] [facility] Diastolic blood pressure 2023-09-26 08:00:00 80 mm[Hg] [facility] Heart rate 2023-09-26 08:00:00 75 /min [facility] Respiratory rate 2023-09-26 08:00:00 20 /min [facility] Oxygen saturation in Arterial blood by Pulse oximetry 2023-09-26 08:00:00 94 /min [facility] Body temperature 2023-09-26 05:02:00 36.72 [facility] Systolic blood pressure 2023-08-24 08:14:00 140 mm[Hg] [facility] Diastolic blood pressure 2023-08-24 08:14:00 73 mm[Hg] [facility] Heart rate 2023-08-24 08:14:00 75 /min [facility] Body temperature 2023-08-24 08:14:00 36.67 [facility] Respiratory rate 2023-08-24 08:14:00 18 /min [facility] Oxygen saturation in Arterial blood by Pulse oximetry 2023-08-24 08:14:00 96 /min [facility] Body height 2023-08-24 03:41:00 172.7 cm [facility] Body weight 2023-08-24 03:41:00 113.399 kg [facility] BMI 2023-08-24 03:41:00 38.01 kg/m2 [facility] Systolic blood pressure 2023-07-07 10:53:00 140 mm[Hg] [facility] Diastolic blood pressure 2023-07-07 10:53:00 83 mm[Hg] [facility] Heart rate 2023-07-07 10:53:00 75 /min [facility] Respiratory rate 2023-07-07 10:53:00 16 /min [facility] Oxygen saturation in Arterial blood by Pulse oximetry 2023-07-07 10:53:00 97 /min [facility] Body temperature 2023-07-07 08:57:00 36.44 [facility] Body height 2023-07-07 08:57:00 172.7 cm [facility] Body weight 2023-07-07 08:57:00 113.399 kg [facility] BMI 2023-07-07 08:57:00 38.01 kg/m2 [facility] Systolic blood pressure 2023-05-26 03:30:00 140 mm[Hg] [facility] Diastolic blood pressure 2023-05-26 03:30:00 78 mm[Hg] [facility] Heart rate 2023-05-26 03:30:00 80 /min [facility] Respiratory rate 2023-05-26 03:30:00 23 /min [facility] Oxygen saturation in Arterial blood by Pulse oximetry 2023-05-26 03:30:00 94 /min [facility] Body temperature 2023-05-26 03:00:00 36.78 [facility] Body weight 2023-05-25 22:19:00 121.564 kg [facility] BMI 2023-05-25 22:19:00 40.75 kg/m2 [facility] Systolic blood pressure 2023-02-21 01:51:00 123 mm[Hg] [facility] Diastolic blood pressure 2023-02-21 01:51:00 74 mm[Hg] [facility] Heart rate 2023-02-20 23:03:00 95 /min [facility] Body temperature 2023-02-20 23:03:00 38.28 [facility] Respiratory rate 2023-02-20 23:03:00 18 /min [facility] Body height 2023-02-20 23:03:00 172.7 cm [facility] Body weight 2023-02-20 23:03:00 121.564 kg [facility] BMI 2023-02-20 23:03:00 40.75 kg/m2 [facility] Oxygen saturation in Arterial blood by Pulse oximetry 2023-02-20 23:03:00 97 /min [facility] Systolic blood pressure 2022-12-29 10:00:00 142 mm[Hg] [facility] Diastolic blood pressure 2022-12-29 10:00:00 78 mm[Hg] [facility] Heart rate 2022-12-29 10:00:00 71 /min [facility] Oxygen saturation in Arterial blood by Pulse oximetry 2022-12-29 09:57:00 96 /min [facility] Body temperature 2022-12-29 06:35:00 36.89 [facility] Respiratory rate 2022-12-29 06:35:00 20 /min [facility] Body height 2022-12-29 06:35:00 172.7 cm [facility] Body weight 2022-12-29 06:35:00 121.745 kg [facility] BMI 2022-12-29 06:35:00 40.81 kg/m2 [facility] Systolic blood pressure 2022-11-21 08:14:00 162 mm[Hg] [facility] Diastolic blood pressure 2022-11-21 08:14:00 101 mm[Hg] [facility] Heart rate 2022-11-21 08:09:00 92 /min [facility] Body temperature 2022-11-21 08:09:00 37.11 [facility] Respiratory rate 2022-11-21 08:09:00 16 /min [facility] Body height 2022-11-21 08:09:00 172.7 cm [facility] Body weight 2022-11-21 08:09:00 115.667 kg [facility] BMI 2022-11-21 08:09:00 38.77 kg/m2 [facility] Oxygen saturation in Arterial blood by Pulse oximetry 2022-11-21 08:09:00 97 /min [facility] Systolic blood pressure 2022-10-29 07:34:00 167 mm[Hg] [facility] Diastolic blood pressure 2022-10-29 07:34:00 97 mm[Hg] [facility] Heart rate 2022-10-29 07:34:00 93 /min [facility] Body temperature 2022-10-29 07:34:00 37.39 [facility] Respiratory rate 2022-10-29 07:34:00 20 /min [facility] Body height 2022-10-29 07:34:00 172.7 cm [facility] Body weight 2022-10-29 07:34:00 113.399 kg [facility] BMI 2022-10-29 07:34:00 38.01 kg/m2 [facility] Oxygen saturation in Arterial blood by Pulse oximetry 2022-10-29 07:34:00 97 /min [facility] Systolic blood pressure 2022-06-02 05:00:00 165 mm[Hg] [facility] Diastolic blood pressure 2022-06-02 05:00:00 119 mm[Hg] [facility] Heart rate 2022-06-02 05:00:00 74 /min [facility] Respiratory rate 2022-06-02 05:00:00 23 /min [facility] Oxygen saturation in Arterial blood by Pulse oximetry 2022-06-02 05:00:00 95 /min [facility] Body temperature 2022-06-02 04:41:00 36.67 [facility] Systolic blood pressure 2022-05-28 18:36:21 147 mm[Hg] [facility] Diastolic blood pressure 2022-05-28 18:36:21 97 mm[Hg] [facility] Heart rate 2022-05-28 18:36:21 62 /min [facility] Respiratory rate 2022-05-28 18:36:21 18 /min [facility] Oxygen saturation in Arterial blood by Pulse oximetry 2022-05-28 18:36:21 96 /min [facility] Body temperature 2022-05-28 15:06:00 37.22 [facility] Body height 2022-05-28 15:06:00 172.7 cm [facility] Body weight 2022-05-28 15:06:00 124.739 kg [facility] BMI 2022-05-28 15:06:00 41.81 kg/m2 [facility] Systolic blood pressure 2022-05-06 06:42:00 137 mm[Hg] [facility] Diastolic blood pressure 2022-05-06 06:42:00 90 mm[Hg] [facility] Heart rate 2022-05-06 06:42:00 81 /min [facility] Respiratory rate 2022-05-06 06:42:00 16 /min [facility] Oxygen saturation in Arterial blood by Pulse oximetry 2022-05-06 06:42:00 94 /min [facility] Body temperature 2022-05-06 03:30:00 36.78 [facility] Body height 2022-05-06 03:30:00 172.7 cm [facility] Body weight 2022-05-06 03:30:00 117.935 kg [facility] BMI 2022-05-06 03:30:00 39.53 kg/m2 [facility] Systolic blood pressure 2022-05-01 13:30:00 147 mm[Hg] [facility] Diastolic blood pressure 2022-05-01 13:30:00 91 mm[Hg] [facility] Heart rate 2022-05-01 13:30:00 73 /min [facility] Respiratory rate 2022-05-01 13:30:00 17 /min [facility] Oxygen saturation in Arterial blood by Pulse oximetry 2022-05-01 13:30:00 95 /min [facility] Body temperature 2022-05-01 12:28:00 36.78 [facility] Body weight 2022-05-01 12:28:00 121.564 kg [facility] BMI 2022-05-01 12:28:00 40.75 kg/m2 [facility] Systolic blood pressure 2022-02-08 07:00:00 133 mm[Hg] [facility] Diastolic blood pressure 2022-02-08 07:00:00 94 mm[Hg] [facility] Heart rate 2022-02-08 07:00:00 77 /min [facility] Respiratory rate 2022-02-08 07:00:00 21 /min [facility] Oxygen saturation in Arterial blood by Pulse oximetry 2022-02-08 07:00:00 95 /min [facility] Body temperature 2022-02-08 06:04:00 36.5 [facility] Body height 2022-02-08 06:04:00 172.7 cm [facility] Body weight 2022-02-08 06:04:00 113.399 kg [facility] BMI 2022-02-08 06:04:00 38.01 kg/m2 [facility] Systolic blood pressure 2021-10-14 22:36:00 152 mm[Hg] [facility] Diastolic blood pressure 2021-10-14 22:36:00 87 mm[Hg] [facility] Heart rate 2021-10-14 22:36:00 95 /min [facility] Body temperature 2021-10-14 22:36:00 36.94 [facility] Respiratory rate 2021-10-14 22:36:00 18 /min [facility] Body weight 2021-10-14 22:36:00 122.29 kg [facility] BMI 2021-10-14 22:36:00 40.99 kg/m2 [facility] Oxygen saturation in Arterial blood by Pulse oximetry 2021-10-14 22:36:00 97 /min [facility] Systolic blood pressure 2021-05-15 17:15:00 148 mm[Hg] [facility] Diastolic blood pressure 2021-05-15 17:15:00 84 mm[Hg] [facility] Heart rate 2021-05-15 17:15:00 99 /min [facility] Body temperature 2021-05-15 17:15:00 36.5 [facility] Respiratory rate 2021-05-15 17:15:00 20 /[facility] Body weight 2021-05-15 17:15:00 117.073 kg [facility] BMI 2021-05-15 17:15:00 39.24 kg/m2 [facility] Oxygen saturation in Arterial blood by Pulse oximetry 2021-05-15 17:15:00 97 /min [facility] Systolic blood pressure 2021-05-08 18:10:00 156 mm[Hg] [facility] Diastolic blood pressure 2021-05-08 18:10:00 95 mm[Hg] [facility] Heart rate 2021-05-08 18:10:00 99 /min [facility] Body temperature 2021-05-08 18:10:00 36.06 [facility] Respiratory rate 2021-05-08 18:10:00 18 /[facility] Body weight 2021-05-08 18:10:00 116.756 kg [facility] BMI 2021-05-08 18:10:00 39.14 kg/m2 [facility] Oxygen saturation in Arterial blood by Pulse oximetry 2021-05-08 18:10:00 96 /min [facility] Systolic blood pressure 2021-05-06 09:26:00 145 mm[Hg] [facility] Diastolic blood pressure 2021-05-06 09:26:00 93 mm[Hg] [facility] Heart rate 2021-05-06 09:26:00 79 /min [facility] Respiratory rate 2021-05-06 09:26:00 20 /[facility] Oxygen saturation in Arterial blood by Pulse oximetry 2021-05-06 09:26:00 97 /min [facility] Body temperature 2021-05-06 07:56:00 37.11 [facility] Body height 2021-05-06 07:56:00 172.7 cm [facility] Body weight 2021-05-06 07:56:00 118.434 kg [facility] BMI 2021-05-06 07:56:00 39.70 kg/m2 [facility] Systolic blood pressure 2021-03-15 06:19:00 127 mm[Hg] [facility] Diastolic blood pressure 2021-03-15 06:19:00 79 mm[Hg] [facility] Heart rate 2021-03-15 06:19:00 78 /min [facility] Respiratory rate 2021-03-15 06:19:00 23 /[facility] Oxygen saturation in Arterial blood by Pulse oximetry 2021-03-15 06:19:00 96 /min [facility] Body temperature 2021-03-15 03:05:45 37 [facility] Body weight 2021-03-15 02:46:00 114.76 kg [facility] BMI 2021-03-15 02:46:00 38.47 kg/m2 [facility] Systolic blood pressure 2021-03-15 06:19:00 127 mm[Hg] [facility] Diastolic blood pressure 2021-03-15 06:19:00 79 mm[Hg] [facility] Heart rate 2021-03-15 06:19:00 78 /min [facility] Respiratory rate 2021-03-15 06:19:00 23 /min [facility] Oxygen saturation in Arterial blood by Pulse oximetry 2021-03-15 06:19:00 96 /min [facility] Body temperature 2021-03-15 03:05:45 37 [facility] Body weight 2021-03-15 02:46:00 114.76 kg [facility] BMI 2021-03-15 02:46:00 38.47 kg/m2 [facility] Systolic blood pressure 2020-09-09 00:10:00 124 mm[Hg] [facility] Diastolic blood pressure 2020-09-09 00:10:00 77 mm[Hg] [facility] Heart rate 2020-09-09 00:10:00 83 /min [facility] Respiratory rate 2020-09-09 00:10:00 16 /min [facility] Oxygen saturation in Arterial blood by Pulse oximetry 2020-09-09 00:10:00 97 /min [facility] Body temperature 2020-09-08 23:14:00 37.39 [facility] Body weight 2020-09-08 22:49:00 107.956 kg [facility] BMI 2020-09-08 22:49:00 36.19 kg/m2 [facility] Systolic blood pressure 2020-09-09 00:10:00 124 mm[Hg] [facility] Diastolic blood pressure 2020-09-09 00:10:00 77 mm[Hg] [facility] Heart rate 2020-09-09 00:10:00 83 /min [facility] Respiratory rate 2020-09-09 00:10:00 16 /[facility] Oxygen saturation in Arterial blood by Pulse oximetry 2020-09-09 00:10:00 97 /min [facility] Body temperature 2020-09-08 23:14:00 37.39 [facility] Body weight 2020-09-08 22:49:00 107.956 kg [facility] BMI 2020-09-08 22:49:00 36.19 kg/m2 [facility] Systolic blood pressure 2020-09-06 19:30:00 115 mm[Hg] [facility] Diastolic blood pressure 2020-09-06 19:30:00 65 mm[Hg] [facility] Heart rate 2020-09-06 19:30:00 67 /min [facility] Body temperature 2020-09-06 19:30:00 36.83 [facility] Respiratory rate 2020-09-06 19:30:00 19 /min [facility] Oxygen saturation in Arterial blood by Pulse oximetry 2020-09-06 19:30:00 99 /min [facility] Body weight 2020-09-06 15:41:00 107.956 kg [facility] BMI 2020-09-06 15:41:00 36.19 kg/m2 [facility] Systolic blood pressure 2020-09-06 19:30:00 115 mm[Hg] [facility] Diastolic blood pressure 2020-09-06 19:30:00 65 mm[Hg] [facility] Heart rate 2020-09-06 19:30:00 67 /min [facility] Body temperature 2020-09-06 19:30:00 36.83 [facility] Respiratory rate 2020-09-06 19:30:00 19 /min [facility] Oxygen saturation in Arterial blood by Pulse oximetry 2020-09-06 19:30:00 99 /min [facility] Body weight 2020-09-06 15:41:00 107.956 kg [facility] BMI 2020-09-06 15:41:00 36.19 kg/m2 [facility] Systolic blood pressure 2020-08-30 13:11:00 136 mm[Hg] [facility] Diastolic blood pressure 2020-08-30 13:11:00 77 mm[Hg] [facility] Heart rate 2020-08-30 13:11:00 74 /min [facility] Body temperature 2020-08-30 13:11:00 36.5 [facility] Respiratory rate 2020-08-30 13:11:00 18 /min [facility] Oxygen saturation in Arterial blood by Pulse oximetry 2020-08-30 13:11:00 96 /min [facility] Body weight 2020-08-30 09:00:00 107.956 kg [facility] BMI 2020-08-30 09:00:00 36.19 kg/m2 [facility] Body height 2020-08-27 07:49:00 172.7 cm [facility] Systolic blood pressure 2020-08-30 13:11:00 136 mm[Hg] [facility] Diastolic blood pressure 2020-08-30 13:11:00 77 mm[Hg] [facility] Heart rate 2020-08-30 13:11:00 74 /min [facility] 2020-08-30 13:11:00 36.5 [facility] Respiratory rate 2020-08-30 13:11:00 18 /min [facility] Oxygen saturation in Arterial blood by Pulse oximetry 2020-08-30 13:11:00 96 /min [facility] Body weight 2020-08-30 09:00:00 107.956 kg [facility] BMI 2020-08-30 09:00:00 36.19 kg/m2 [facility] Body height 2020-08-27 07:49:00 172.7 cm [facility] Systolic blood pressure 2020-07-10 05:30:00 123 mm[Hg] [facility] Diastolic blood pressure 2020-07-10 05:30:00 77 mm[Hg] [facility] Heart rate 2020-07-10 05:30:00 75 /min [facility] 2020-07-10 05:30:00 19 /min [facility] Oxygen saturation in Arterial blood by Pulse oximetry 2020-07-10 05:30:00 97 /min [facility] Body temperature 2020-07-10 00:48:00 37.39 [facility] Body height 2020-07-10 00:48:00 172.7 cm [facility] Body weight 2020-07-10 00:43:00 99.791 kg [facility] BMI 2020-07-10 00:43:00 33.45 kg/m2 [facility] Systolic blood pressure 2020-07-10 05:30:00 123 mm[Hg] [facility] Diastolic blood pressure 2020-07-10 05:30:00 77 mm[Hg] [facility] Heart rate 2020-07-10 05:30:00 75 /min [facility] Respiratory rate 2020-07-10 05:30:00 19 /min [facility] Oxygen saturation in Arterial blood by Pulse oximetry 2020-07-10 05:30:00 97 /min [facility] Body temperature 2020-07-10 00:48:00 37.39 [facility] Body height 2020-07-10 00:48:00 172.7 cm [facility] Body weight 2020-07-10 00:43:00 99.791 kg [facility] BMI 2020-07-10 00:43:00 33.45 kg/m2 [facility] Procedures Procedure Date / Time Performed Performing Clinician Source URINALYSIS 2024-02-04 18:16:00 [facility] ABD[facility] PELVIS W CONTRAST 2024-02-04 16:52:00 Babs [facility] LIPASE 2024-02-04 16:00:00 [facility] COMP. METABOLIC PANEL ([id number]) 2024-02-04 16:00:00 Babs [facility] CBC WITH DIFF 2024-02-04 16:00:00 Babs Bustamante [facility] CONSENT/REFUSAL FOR DIAGNOSIS AND TREATMENT 2023-12-28 08:06:27 Doctor Unassigned, [facility] EKG-12 LEAD 2023-11-06 08:26:13 Nidia Solano [facility] LIPASE 2023-11-06 06:15:00 Nidia Solano [facility] MAGNESIUM 2023-11-06 06:15:00 [facility] COMP. METABOLIC PANEL ([id number]) 2023-11-06 06:15:00 N[facility] CBC WITH DIFF 2023-11-06 06:15:00 Nidia Solano [facility] URINALYSIS 2023-11-06 06:15:00 Nidia Solano [facility] CONSENT/REFUSAL FOR DIAGNOSIS AND TREATMENT 2023-11-06 05:40:44 Doctor Unassigned, [facility] CT ABDOMEN PELVIS W CONTRAST 2023-11-01 08:32:40 Jose Francisco [facility] LIPASE 2023-11-01 05:45:00 Jose Francicso [facility] COMP. METABOLIC PANEL ([id number]) 2023-11-01 05:45:00 Jose Francisco [facility] CBC WITH DIFF 2023-11-01 05:45:00 Jose Francisco [facility] URINALYSIS 2023-11-01 05:45:00 Jose Francisco [facility] POCT GLUCOSE (AUTOMATED) 2023-11-01 05:41:00 L[facility] CONSENT/REFUSAL FOR DIAGNOSIS AND TREATMENT 2023-11-01 05:29:45 Doctor Unassigned, [facility] CT ABDOMEN PELVIS W CONTRAST 2023-10-23 07:06:44 Chap[facility] LIPASE 2023-10-23 05:50:00 Chapito Contreras [facility] COMP. METABOLIC PANEL ([id number]) 2023-10-23 05:50:00 Chapito [facility] CBC WITH DIFF 2023-10-23 05:50:00 Chapito Contreras [facility] URINALYSIS 2023-10-23 05:50:00 Chapito Contreras [facility] CONSENT/REFUSAL FOR DIAGNOSIS AND TREATMENT 2023-10-23 05:34:08 Doctor Unassigned, [facility] URINALYSIS 2023-09-26 06:12:00 [facility] 2023-09-26 05:12:00 Jose [facility] HEPATIC FUNCTION PANEL ([id number]) (ALB,T.PRO,BILI T,BU/BC,ALT,AST,ALK PHOS) 2023-09-26 05:12:00 [facility]IC [facility]EL (NA, K, CL, CO2, GLUCOSE, BUN, CREATININE, CA) 2023-09-26 05:12:00 Jose [facility] CBC WITH DIFF 2023-09-26 05:12:[address] [facility] NOTICE OF PRIVACY PRACTICES 2023-09-26 04:50:48 Doctor Unassigned, [facility] CONSENT/REFUSAL FOR DIAGNOSIS AND TREATMENT 2023-09-26 04:50:08 Doctor Unassigned, [facility] CT CHEST PULMONARY ANGIOGRAM 2023-08-24 08:02:29 [facility] XR CHEST 1 VW 2023-08-24 04:38:16 Patrick Vergara [facility] TROPONIN I 2023-08-24 04:29:00 Patrick Vergara [facility] COMP. METABOLIC PANEL ([id number]) 2023-08-24 04:29:00 [facility] CBC WITH DIFF 2023-08-24 04:29:00 [facility] CONSENT/REFUSAL FOR DIAGNOSIS AND TREATMENT 2023-08-24 03:41:11 Doctor Unassigned, [facility] LIPASE 2023-07-07 09:22:00 Chapito Contreras [facility] TROPONIN I 2023-07-07 09:22:00 Chapito Contreras [facility] COMP. METABOLIC PANEL ([id number]) 2023-07-07 09:22:00 [facility] CBC WITH DIFF 2023-07-07 09:22:00 Chapito Contreras [facility] URINALYSIS 2023-07-07 09:22:00 Chapito Contreras [facility] CONSENT/REFUSAL FOR DIAGNOSIS AND TREATMENT 2023-07-07 08:49:51 Doctor Unassigned, [facility] POCT GLUCOSE (AUTOMATED) 2023-05-26 02:17:00 Nidia [facility] URINALYSIS 2023-05-26 01:24:00 Nidia Solanoe [facility] POCT GLUCOSE (AUTOMATED) 2023-05-26 01:22:00 Nidia [facility] TROPONIN I 2023-05-26 00:54:00 Nidia Solano [facility] COVID-19 (ID NOW RAPID TESTING) 2023-05-26 00:54:00 Nidia [facility]ano [facility] ASSIGNMENT OF BENEFITS 2023-05-26 00:29:59 Docto r Unassigned, [facility] XR CHEST 1 VW 2023-05-25 22:41:21 Nidia Solano [facility] LIPASE 2023-05-25 22:33:00 Nidia Solano [facility] MAGNESIUM 2023-05-25 22:33:00 Nidia Solano [facility] TROPONIN I 2023-05-25 22:33:00 Nidia Solano [facility] COMP. METABOLIC PANEL ([id number]) 2023-05-25 22:33:00 N[facility]ano [facility] CBC WITH DIFF 2023-05-25 22:33:00 Nidia Solano [facility] N-TERMINAL PRO-BNP 2023-05-25 22:33:00 N[facility] CONSENT/REFUSAL FOR DIAGNOSIS AND TREATMENT 2023-05-25 22:07:05 Doctor Unassigned, [facility] COVID-19 (ID NOW RAPID TESTING) 2023-02-20 23:30:00 [facility] CONSENT/REFUSAL FOR DIAGNOSIS AND TREATMENT 2023-02-20 22:54:00 Doctor Unassigned, [facility] CT ABDOMEN PELVIS W CONTRAST 2022-12-29 08:28:18 Chap[facility] LIPASE 2022-12-29 07:11:00 Chapito Contreras [facility] COMP. METABOLIC PANEL ([id number]) 2022-12-29 07:11:00 [facility] CBC WITH DIFF 2022-12-29 07:11:00 Chapito Contreras [facility] URINALYSIS 2022-12-29 07:11:00 Chapito Contreras [facility] CONSENT/REFUSAL FOR DIAGNOSIS AND TREATMENT 2022-12-29 06:24:27 Doctor Unassigned, [facility] CONSENT/REFUSAL FOR DIAGNOSIS AND TREATMENT 2022-11-21 08:05:19 Doctor Unassigned, [facility] RAPID STREP SCREEN FOR GROUP A 2022-10-29 07:36:00 [facility] CONSENT/REFUSAL FOR DIAGNOSIS AND TREATMENT 2022-10-29 07:23:03 Doctor Unassigned, [facility] CONSENT/REFUSAL FOR DIAGNOSIS AND TREATMENT 2022-06-02 04:34:17 Doctor Unassigned, [facility] FREE T4 2022-05-28 16:06:00 [facility] THYROID STIMULATING HORMONE 2022-05-28 16:06:00 Lala [facility] COMP. METABOLIC PANEL ([id number]) 2022-05-28 16:06:00 Singer [facility] CBC WITH DIFF 2022-05-28 16:06:00 Lala Clarke [facility] FREE T3 2022-05-28 16:06:00 Singer [facility] CONSENT/REFUSAL FOR DIAGNOSIS AND TREATMENT 2022-05-28 14:55:38 Doctor Unassigned, [facility] CT ABDOMEN PELVIS W CONTRAST 2022-05-06 06:06:56 Nidia [facility] LIPASE 2022-05-06 05:17:00 Nidia Solano [facility] MAGNESIUM 2022-05-06 05:17:00 Nidia Solano [facility] TROPONIN I 2022-05-06 05:17:00 Nidia Solano [facility] COMP. METABOLIC PANEL ([id number]) 2022-05-06 05:17:00 N[facility] CBC WITH DIFF 2022-05-06 05:17:00 Nidia Solano [facility] URINALYSIS 2022-05-06 05:17:00 Nidia Solano [facility] RAPID INFLUENZA A/B 2022-05-06 03:48:00 Nidia [facility] COVID-19 (ID NOW RAPID TESTING) 2022-05-06 03:48:00 Nidia [facility] CONSENT/REFUSAL FOR DIAGNOSIS AND TREATMENT 2022-05-06 03:22:49 Doctor Unassigned, [facility] COMP. METABOLIC PANEL ([id number]) 2022-05-01 12:42:00 Singer [facility] CBC WITH DIFF 2022-05-01 12:42:00 Singer [facility] CONSENT/REFUSAL FOR DIAGNOSIS AND TREATMENT 2022-05-01 12:23:44 Doctor Unassigned, [facility] URINALYSIS 2022-02-08 06:27:00 [facility] URINE DRUG (IMMUNOASSAY) - COMPREHENSIVE DRUG SCREEN W/O REFLEX 2022-02-08 06:27:00 [facility] LIPASE 2022-02-08 06:15:00 Benjamin Ashford [facility] TROPONIN I 2022-02-08 06:15:00 [facility] COMP. METABOLIC PANEL ([id number]) 2022-02-08 06:15:00 [facility] ETHANOL 2022-02-08 06:15:00 Benjamin Ashford [facility] CBC WITH DIFF 2022-02-08 06:15:00 Benjamin Ashford [facility] PROTHROMBIN TIME / INR 2022-02-08 06:15:00 [facility] ACTIVATED PARTIAL THRMPLAS ELAINE 2022-02-08 06:15:00 [facility] N-TERMINAL PRO-BNP 2022-02-08 06:15:00 [facility] NOTICE OF PRIVACY PRACTICES 2022-02-08 06:01:50 Doctor Unassigned, [facility] CONSENT/REFUSAL FOR DIAGNOSIS AND TREATMENT 2022-02-08 05:59:20 Doctor Unassigned, [facility] CT ABDOMEN PELVIS W CONTRAST 2021-10-15 00:40:39 [facility] LIPASE 2021-10-15 00:26:00 Marie Morales [facility] TROPONIN I 2021-10-15 00:26:00 Marie Morales [facility] COMP. METABOLIC PANEL ([id number]) 2021-10-15 00:26:00 [facility] CBC WITH DIFF 2021-10-15 00:26:00 Marie Morales [facility] NOTICE OF PRIVACY PRACTICES 2021-10-14 22:18:20 Doctor Unassigned, [facility] CONSENT/REFUSAL FOR DIAGNOSIS AND TREATMENT 2021-10-14 22:17:56 Doctor Unassigned, [facility] CT ABDOMEN PELVIS W CONTRAST 2021-03-15 04:54:23 [facility] COVID-19 (ID NOW RAPID TESTING) 2021-03-15 03:34:00 Chapito [facility]reras [facility] URINALYSIS 2021-03-15 03:16:00 Chapito Contreras [facility] COMP. METABOLIC PANEL ([id number]) 2021-03-15 03:11:00 Chapito [facility]ras [facility] CBC WITH DIFF 2021-03-15 03:11:00 Chapito Contreras [facility] CONSENT/REFUSAL FOR DIAGNOSIS AND TREATMENT 2021-03-15 02:38:38 Doctor Unassigned, [facility] LIPASE 2020-09-08 23:14:00 [facility] COMP. METABOLIC PANEL ([id number]) 2020-09-08 23:14:00 Singer [facility] CBC WITH DIFF 2020-09-08 23:14:00 Clarke [facility] CONSENT/REFUSAL FOR DIAGNOSIS AND TREATMENT 2020-09-08 22:38:49 Doctor Unassigned, [facility] CT ABDOMEN PELVIS W CONTRAST 2020-09-06 17:05:33 Nidia Solano [facility] LACTIC ACID WHOLE BLOOD 2020-09-06 16:31:00 Nidia Solano [facility] LIPASE 2020-09-06 16:11:00 Nidia Solano [facility] MAGNESIUM 2020-09-06 16:11:00 Nidia Solano [facility] COMP. METABOLIC PANEL ([id number]) 2020-09-06 16:11:00 Nidia Solano [facility] CBC WITH DIFF 2020-09-06 16:11:00 Nidia Solano [facility] NOTICE OF PRIVACY PRACTICES 2020-09-06 15:30:39 Doctor Unassigned, [facility] CONSENT/REFUSAL FOR DIAGNOSIS AND TREATMENT 2020-09-06 15:30:28 Doctor Unassigned, [facility] COMP. METABOLIC PANEL ([id number]) 2020-08-30 08:39:00 [facility] CBC WITH DIFF 2020-08-30 08:39:00 Babs Bustamante [facility] US ABDOMEN COMPLETE 2020-08-28 18:11:06 Patrick [facility] ECHO ROUTINE W/DOPPLER COLOR 2020-08-28 16:34:45 [facility] HEPATIC FUNCTION PANEL ([id number]) (ALB,T.PRO,BILI T,BU/BC,ALT,AST,ALK PHOS) 2020-08-28 10:16:00 F[facility]io [facility] BASIC METABOLIC PANEL (NA, K, CL, CO2, GLUCOSE, BUN, CREATININE, CA) 2020-08-28 10:16:00 Oneal [facility] TROPONIN I 2020-08-27 18:11:00 Oneal [facility] POCT GLUCOSE (AUTOMATED) 2020-08-27 18:02:00 Clau No [facility] POCT GLUCOSE (AUTOMATED) 2020-08-27 13:49:00 Clau No [facility] TROPONIN I 2020-08-27 11:35:00 Oneal [facility] CT ABDOMEN PELVIS W WO CONTRAST 2020-08-27 07:38:49 Oneal [facility] COVID-19 (ID NOW RAPID TESTING) 2020-08-27 06:21:00 Dejon [facility] URINALYSIS 2020-08-27 06:20:00 [facility] ADC / LCC - DRUG SCREEN TRIAGE 2020-08-27 06:20:00 Dejon [facility] XR CHEST 1 VW 2020-08-27 06:05:42 Benjamin Ashford [facility] LIPASE 2020-08-27 05:58:00 [facility] TROPONIN I 2020-08-27 05:58:00 [facility] THYROID STIMULATING HORMONE 2020-08-27 05:58:00 Oneal [facility] HEPATIC FUNCTION PANEL ([id number]) (ALB,T.PRO,BILI T,BU/BC,ALT,AST,ALK PHOS) 2020-08-27 05:58:00 [facility] BASIC METABOLIC PANEL (NA, K, CL, CO2, GLUCOSE, BUN, CREATININE, CA) 2020-08-27 05:58:00 Dejon [facility] LIPID PANEL ([id number])(TOTAL CHOLESTEROL, TRIGLYCERIDES, HDL) 2020-08-27 05:58:00 Onela [facility] ETHANOL 2020-08-27 05:58:00 [facility] CBC WITH DIFF 2020-08-27 05:58:00 Benjamin Ashford [facility] PROTHROMBIN TIME / INR 2020-08-27 05:58:00 [facility] ACTIVATED PARTIAL THRMPLAS ELAINE 2020-08-27 05:58:00 [facility] EKG-12 LEAD 2020-08-27 05:54:03 Benjamin Ashford [facility] NOTICE OF PRIVACY PRACTICES 2020-08-27 05:44:26 Doctor Unassigned, [facility] CONSENT/REFUSAL FOR DIAGNOSIS AND TREATMENT 2020-08-27 05:43:44 Doctor Unassigned, [facility] CONSENT/REFUSAL FOR DIAGNOSIS AND TREATMENT 2020-08-27 05:43:43 Doctor Unassigned, [facility] CT ABDOMEN PELVIS W CONTRAST 2020-07-10 05:12:21 [facility] TROPONIN I 2020-07-10 03:49:00 Chapito Contreras [facility] ADC / LCC - DRUG SCREEN TRIAGE 2020-07-10 03:13:00 [facility] XR CHEST 1 VW 2020-07-10 01:05:14 Chapito Contreras [facility] LIPASE 2020-07-10 00:55:00 Chapito Contreras [facility] TROPONIN I 2020-07-10 00:55:00 Chapito Contreras [facility] COMP. METABOLIC PANEL ([id number]) 2020-07-10 00:55:00 [facility] CBC WITH DIFF 2020-07-10 00:55:00 Chapito Contreras [facility] PROTHROMBIN TIME / INR 2020-07-10 00:55:00 [facility]ica [facility] D-DIMER 2020-07-10 00:55:00 Chapito Contreras [facility] COVID-19 (ID NOW RAPID TESTING) 2020-07-10 00:55:00 [facility] EKG-12 LEAD 2020-07-10 00:52:35 Chapito Contreras [facility] Encounters Start Date/Time End Date/Time Encounter Type Admission Type Attending [facility] Care Facility Care Department Encounter ID Source 2024-02-09 00:00:00 2024-03-13 18:08:36 Patient Secure Msg Doctor Unassigned, [facility] [id number] [facility] 2024-02-04 10:45:00 2024-02-04 14:36:00 Emergency X BABS BUSTAMANTE [facility] E[facility] [id number] [facility] 2024-02-04 10:45:00 2024-02-04 14:36:00 Emergency Babs Bustamante [facility] [id number] [facility] 2023-12-28 03:16:00 2023-12-28 04:32:00 Emergency X CHAPITO CONTRERAS WAKILI [facility] ERT [id number] [facility] 2023-12-28 03:16:00 2023-12-28 04:32:00 Emergency Chapito Contreras [facility] 1.2.840.114 350.1.13.10 4.2.7.2.686 [id number] 084 [id number] [facility] 2023-11-05 23:52:00 2023-11-06 02:37:00 Emergency X Nidia SOLANO K [facility] ERT [id number] [facility] 2023-11-05 23:52:00 2023-11-06 02:37:00 Emergency Nidia Solano [facility] 1.2840.114 350.1.13.10 4.2.7.2.686 [id number] 084 [id number] [facility] 2023-10-31 23:33:00 2023-11-01 04:19:00 Emergency X JOSE FRANCISCO WALTERS [facility] ERT [id number] [facility] 2023-10-31 23:33:00 2023-11-01 04:19:00 Emergency Jose Francisco Walters [facility] 1.2840.114 350.1.13.10 4.2.7.2.686 [id number] 084 [id number] [facility] 2023-10-22 23:39:00 2023-10-23 02:31:00 Emergency X CHAPITO CONTRERAS [facility] ERT [id number] [facility] 2023-10-22 23:39:00 2023-10-23 02:31:00 Emergency Chapito Contreras Clau [facility] 1.2840.114 350.1.13.10 4.2.7.2.686 [id number] [id number] [facility] 2023-09-25 23:04:00 2023-09-26 02:30:00 Emergency X MADELINE TAM HEE-KWANG [facility] ERT [id number] [facility] 2023-09-25 23:04:00 2023-09-26 02:30:00 Emergency Madeline Tam [facility] 1.2840.114 350.1.13.10 4.2.7.2.686 [id number] 084 [id number] [facility] 2023-08-25 00:00:00 2023-08-25 00:00:00 Patient Secure Msg Doctor Unassigned, [place] [facility] 1.2840.114 350.1.13.10 4.2.7.2.686 [id number] [facility] 2023-08-23 22:43:00 2023-08-24 02:41:00 Emergency Patrick Vergara [facility] 1.2.840.114 350.1.13.10 4.2.7.2.686 [id number] 084 [id number] [facility] 2023-08-23 22:43:00 2023-08-24 02:41:00 Emergency X PATRICK VERGARA [facility] ERT [id number] [facility] 2023-07-07 03:51:00 2023-07-07 05:56:00 Emergency X CHAPITO CONTRERAS [facility] ERT [id number] [facility] 2023-07-07 03:51:00 2023-07-07 05:56:00 Emergency Chapito Contreras [facility] 1.2.840.114 350.1.13.10 4.2.7.2.686 [id number] 084 [id number] [facility] 2023-05-25 17:20:00 2023-05-25 22:37:00 Emergency X Nidia SOLANO [facility] ERT [id number] [facility] 2023-05-25 17:20:00 2023-05-25 22:37:00 Emergency Nidia Solano Haily [facility] 1.2.840.114 350.1.13.10 4.2.7.2.686 [id number] 084 [id number] [facility] 2023-02-20 18:06:00 2023-02-20 21:03:00 Emergency X MONROE ESCOBAR MONROE [facility] ERT [id number] [facility] 2023-02-20 18:06:00 2023-02-20 21:03:00 Emergency Monroe Escobar [facility] 1.2.840.114 350.1.13.10 4.2.7.2.686 [id number] [id number] [facility] 2023-02-20 00:00:00 2023-02-20 00:00:00 Orders Only Doctor Unassigned, [place] [facility] 1.2.840.114 350.1.13.10 4.2.7.2.686 [id number] [id number] [facility] 2022-12-29 00:24:00 2022-12-29 05:29:00 Emergency X CHAPITO CONTRERAS [facility] ERT [id number] [facility] 2022-12-29 00:24:00 2022-12-29 05:29:00 Emergency Chapito Contreras [facility] 1.2.840.114 350.1.13.10 4.2.7.2.686 [id number] 084 [id number] [facility] 2022-11-21 02:14:00 2022-11-21 03:04:00 Emergency X PATRICK VERGARA [facility] ERT [id number] [facility] 2022-11-21 02:14:00 2022-11-21 03:04:00 Emergency VergaraPatrick Clau [facility] 1.2.840.114 350.1.13.10 4.2.7.2.686 [id number] 084 [id number] [facility] 2022-10-29 01:37:00 2022-10-29 02:25:00 Emergency X MARIE MORALES [facility] ERT [id number] [facility] 2022-10-29 01:37:00 2022-10-29 02:25:00 Emergency Marie Morales [facility] 1..840.114 350.1.13.10 4.2.7.2.686 [id number] 084 [id number] [facility] 2022-06-01 23:34:00 2022-06-02 00:39:00 Emergency X LALA CLARKE [facility] ERT [id number] [facility] 2022-06-01 23:34:00 2022-06-02 00:39:00 Emergency Lala Clarke [facility] 1.2.840.114 350.1.13.10 4.2.7.2.686 [id number] 084 [id number] [facility] 2022-05-28 11:00:00 2022-05-28 13:39:00 Emergency X LALA CLARKE [facility] ERT [id number] [facility] 2022-05-28 11:00:00 2022-05-28 13:39:00 Emergency Lala Clarke [facility] 1.2.840.114 350.1.13.10 4.2.7.2.686 [id number] 084 [id number] [facility] 2022-05-05 22:33:00 2022-05-06 01:49:00 Emergency X Nidia SOLANO [facility] ERT [id number] [facility] 2022-05-05 22:33:00 2022-05-06 01:49:00 Emergency Nidia Solano Haily [facility] 1.2.840.114 350.1.13.10 4.2.7.2.686 [id number] 084 [id number] [facility] 2022-05-01 07:33:00 2022-05-01 09:07:00 Emergency X LALA CLARKE [facility] ERT [id number] [facility] 2022-05-01 07:33:00 2022-05-01 09:07:00 Emergency Lala Clarke [facility] 1.2.840.114 350.1.13.10 4.2.7.2.686 [id number] 084 [id number] [facility] 2022-02-08 01:00:00 2022-02-08 03:03:00 Emergency X DEJON BENJAMIN [facility] ERT [id number] [facility] 2022-02-08 01:00:00 2022-02-08 03:03:00 Emergency Benjamin Ashford [facility] 1.2.840.114 350.1.13.10 4.2.7.2.686 [id number] 084 [id number] [facility] 2021-10-14 16:40:00 2021-10-14 19:30:00 Emergency MARIE CHATTERJEE [facility] ERT [id number] [facility] 2021-10-14 16:40:00 2021-10-14 19:30:00 Emergency Marie Morales [facility] 1.2.840.114 350.1.13.10 4.2.7.2.686 [id number] 084 [id number] [facility] 2021-05-15 12:11:58 2021-05-15 23:59:00 Hospital Encounter Geoff Cardona [facility] 1.2.840.114 350.1.13.10 4.2.7.2.686 [id number] [facility] 2021-05-15 12:30:00 2021-05-15 12:30:00 Outpatient R [facility] [id number] [facility] 2021-05-08 12:30:00 2021-05-08 23:59:00 Hospital Encounter Kiki Mathur [facility] 1.2.840.114 350.1.13.10 4.2.7.2.686 [id number] [facility] 2021-05-08 12:30:00 2021-05-08 12:30:00 Outpatient R [facility] [id number] [facility] 2021-05-06 03:01:00 2021-05-06 04:28:[address] [facility] 1.2.840.114 350.1.13.10 4.2.7.2.686 [id number] 084 [id number] [facility] 2021-05-06 03:01:00 2021-05-06 04:28:00 Emergency LALA MEDRANO [facility] ERT [id number] [facility] 2021-03-14 21:49:00 2021-03-15 01:22:[address] [facility] 1.2.840.114 350.1.13.10 4.2.7.2.686 [id number] 084 [id number] [facility] 2021-03-14 21:49:00 2021-03-15 01:22:[address] [facility] 1.2.840.114 350.1.13.10 4.2.7.2.686 [id number] 084 [id number] 2021-03-14 21:49:00 2021-03-14 21:49:00 Emergency CHAPITO VELASQUEZ [facility] ERT [id number] [facility] 2020-09-08 16:52:00 2020-09-08 18:13:[address] [facility] 1.2.840.114 350.1.13.10 4.2.7.2.686 [id number] 084 [id number] [facility] 2020-09-08 16:52:00 2020-09-08 18:13:[address] [facility] 1.2.840.114 350.1.13.10 4.2.7.2.686 [id number] [id number] 2020-09-08 16:52:00 2020-09-08 16:52:00 Emergency LALA MEDRANO [facility] ERT [id number] [facility] 2020-09-06 09:52:00 2020-09-06 13:38:[address] [facility] 1.2.840.114 350.1.13.10 4.2.7.2.686 [id number] 084 [id number] [facility] 2020-09-06 09:52:00 2020-09-06 13:38:[address] [facility] 1.2.840.114 350.1.13.10 4.2.7.2.686 [id number] [id number] 2020-09-06 09:52:00 2020-09-06 09:52:00 Emergency X [facility] ERT [id number] [facility] 2020-09-06 00:00:00 2020-09-06 00:00:00 Orders Only Doctor Unassigned, [place] [facility] 1.2.840.114 350.1.13.10 4.2.7.2.686 [id number] [facility] 2020-09-06 00:00:00 2020-09-06 00:00:00 Orders Only Doctor Unassigned, [place] [facility] 1.2.840.114 350.1.13.10 4.2.7.2.686 [id number] 2020-08-26 23:45:00 2020-08-30 08:05:00 Emergency Benjamin Ashford [facility] 1.2.840.114 350.1.13.10 4.2.7.2.686 [id number] [id number] [facility] 2020-08-26 23:45:00 2020-08-30 08:05:00 Emergency Benjamin Ashford [facility] 1.2.840.114 350.1.13.10 4.2.7.2.686 [id number] [id number] 2020-08-26 23:43:00 2020-08-26 23:43:00 Emergency X [facility] ERT [id number] [facility] 2020-07-09 19:41:00 2020-07-10 00:40:[address] [facility] 1.2.840.114 350.1.13.10 4.2.7.2.686 [id number] [id number] [facility] 2020-07-09 19:41:00 2020-07-10 00:40:[address] [facility] 1.2.840.114 350.1.13.10 4.2.7.2.686 [id number] [id number] 2020-07-09 19:41:00 2020-07-09 19:41:00 Emergency X CHAPITO CONTRERAS [facility] ERT [id number] [facility] 2005-04-01 12:20:00 2005-04-01 20:14:00 Emergency X MARIBELL CEDILLO [facility] ERT [id number] [facility] Results Test Description Test Time [...] clinically for any signs and symptomsof cystitis. [facility] Rrkyc8580-47-60 17:02:35* Test Item Value Reference Range Interpretation Comme nts NA (test code = 7516933648) 139 mmol/L 135-145 K (test code = 3653929798) 4.4 mmol/L 3.5-5.0 CL (test code = 6131767407) 101 mmol/L 98-108 CO2 TOTAL (test code = 0985658406) 31 mmol/L 23-31 AGAP (test code = 2721288933) 7 2-16 BUN (test code = 0160392548) 12 mg/dL 7-23 GLUCOSE (test code = 9373260572) 100 mg/dL 70-110 CREATININE (test code = 2160-0) 0.61 mg/dL 0.60-1.25 TOTAL BILI (test code = 8176707966) 0.5 mg/dL 0.1-1.1 CALCIUM (test code = 3527676286) 9.8 mg/dL 8.6-10.6 T PROTEIN (test code = 0858220581) 8.4 g/dL 6.3-8.2 H ALBUMIN (test code = 2810986287) 4.7 g/dL 3.5-5.0 ALK PHOS (test code = 2311761928) 84 U/L 34-122 ALTv (test code = 1742-6) 23 U/L 5-50 AST(SGOT) (test code = 1075622125) 25 U/L 13-40 eGFR (test code = 58133-7) 120.0 mL/min/1.73m2 CKD-EPI eGFR (2020). Assuming creatinine has been stable day-to-day for at least three months, the eGFR indicates Category G1 (>= 90 mL/min/1.73 m2) Lab Interpretation (test code = 90508-8) [facility], Pubrj6469-04-69 17:01:54* Test Item Value Reference Range Interpretation Comme nts LIPASE (test code = 5991961629) 42 U/L 0-220 Lab Interpretation (test cod e = 99385-5) [facility]2024-01-18 07:16:16* Test Item Value Reference Range Interpretation Comme nts MAGNESIUM (test code = 7487508768) 2.2 mg/dL 1.7-2.4 Lab Interpretation (test cod e = 85703-8) [facility] Met[facility] Panel (46080)2023-11-06 07:16:15* Test Item Value Reference Range Interpretation Comme nts NA (test code = 4140354798) 138 mmol/L 135-145 K (test code = 9854765186) 3.5 mmol/L 3.5-5.0 CL (test code = 7006969422) 106 mmol/L 98-108 CO2 TOTAL (test code = 7038148735) 23 mmol/L 23-31 AGAP (test code = 4100942227) 9 2-16 BUN (test code = 2654837569) 18 mg/dL 7-23 GLUCOSE (test code = 1131139281) 110 mg/dL 70-110 CREATININE (test code = 3721142633) 0.73 mg/dL 0.60-1.25 TOTAL BILI (test code = 2866153110) 0.4 mg/dL 0.1-1.1 CALCIUM (test code = 3881600186) 9.4 mg/dL 8.6-10.6 T PROTEIN (test code = 5121702988) 8.5 g/dL 6.3-8.2 H ALBUMIN (test code = 2227379066) 4.8 g/dL 3.5-5.0 ALK PHOS (test code = 1342224670) 78 U/L 34-122 ALTv (test code = 1742-6) 42 U/L 5-50 AST(SGOT) (test code = 4753330802) 43 U/L 13-40 H eGFR (test code = 93396-3) 113.6 mL/min/1.73m2 CKD-EPI eGFR (2020). Assuming creatinine has been stable day-to-day for at least three months, the eGFR indicates Category G1 (>= 90 mL/min/1.73 m2) Lab Interpretation (test code = 06329-6) [facility]2024-01-18 07:16:15* Test Item Value Reference Range Interpretation Comme nts LIPASE (test code = 4616315922) 118 U/L 0-220 Lab Interpretation (test cod e = 00569-0) Normal [facility] with Iopv6551-38-03 06:49:12* Test Item Value Reference Range Interpretation Comme nts WBC (test code = 6690-2) 11.36 See_Comment H [Automated [employer]] The system which generated this result [...] 33.5 g/dL 31.2-35.0 RDW-SD (test code = 19184-3) 46.4 fL 38.5-51.6 RDW-CV (test code = 788-0) 13.7 % 12.1-15.4 PLT (test code = 777-3) 323 See_Comment [Automated messa ge] The system which generated this result transmitted reference range: 150 - 328 10*3/?L. The reference range was not used to interpret this result as normal/abnormal. MPV (test code = 86186-0) 9.8 fL 9.8-13.0 NRBC/100 WBC (test code = 1882006929) 0.0 See_Comment [Automated me ssage] The system which generated this result transmitted reference range: 0.0 - 10.0 /100 WBCs. The reference range was not used to interpret this result as normal/abnormal. NRBC x10^3 (test code = 7380931548) See_Comment [Automated messa ge] The system which generated this result transmitted reference range: 10*3/?L. The reference range was not used to interpret this result as normal/abnormal. GRAN MAT (NEUT) % (test code = 770-8) 56.1 % IMM GRAN % (test code = 1354939325) 0.50 % LYMPH % (test code = 736-9) 34.8 % MONO % (test code = 5905-5) 6.3 % EOS % (test code = 713-8) 1.4 % BASO % (test code = 706-2) 0.9 % GRAN MAT x10^3(ANC) (test code = 1452639873) 6.38 10*3/uL 1.99-6.95 IMM GRAN x10^3 (test code = 0288477074) 0.06 10*3/uL 0.00-0.06 LYMPH x10^3 (test code = 731-0) 3.95 10*3/uL 1.09-3.23 H MONO x10^3 (test code = 742-7) 0.71 10*3/uL 0.36-1.02 EOS x10^3 (test code = 711-2) 0.16 10*3/uL 0.06-0.53 BASO x10^3 (test code = 704-7) 0.10 10*3/uL 0.01-0.09 H Lab Interpretation (test code = 13529-8) [facility] PELVIS W HFOLHSFP7765-34-97 09:00:37Ordering physician: JOSE FRANCISCO WALTERS Indication: Acute [...] abdomen andpelvis demonstrate no osseous destructive lesion. [facility] Ufzxi8796-29-96 06:29:13* Test Item Value Reference Range Interpretation Comme nts NA (test code = 6691944602) 138 mmol/L 135-145 K (test code = 3267162478) 3.8 mmol/L 3.5-5.0 CL (test code = 3790062007) 106 mmol/L 98-108 CO2 TOTAL (test code = 4106976772) 21 mmol/L 23-31 L AGAP (test code = 2632822915) 11 2-16 BUN (test code = 7279617961) 13 mg/dL 7-23 GLUCOSE (test code = 8392819077) 113 mg/dL 70-110 H CREATININE (test code = 7935427147) 0.63 mg/dL 0.60-1.25 TOTAL BILI (test code = 6306749295) 0.7 mg/dL 0.1-1.1 CALCIUM (test code = 6358220642) 9.6 mg/dL 8.6-10.6 T PROTEIN (test code = 7568275514) 9.0 g/dL 6.3-8.2 H ALBUMIN (test code = 3654615226) 5.0 g/dL 3.5-5.0 ALK PHOS (test code = 6406478630) 73 U/L 34-122 ALTv (test code = 1742-6) 33 U/L 5-50 AST(SGOT) (test code = 2852914826) 33 U/L 13-40 eGFR (test code = 81766-1) 118.8 mL/min/1.73m2 CKD-EPI eGFR (2020). Assuming creatinine has been stable day-to-day for at least three months, the eGFR indicates Category G1 (>= 90 mL/min/1.73 m2) Lab Interpretation (test code = 34674-4) [facility], Xmcfy3434-98-82 06:29:13* Test Item Value Reference Range Interpretation Comme nts LIPASE (test code = 8036373385) 89 U/L 0-220 Lab Interpretation (test cod e = 27606-1) [facility] Hospital[facility] with Vlmnuqplfoyn4750-74-00 06:17:56* Test Item Value Reference Range Interpretation [...] 33.9 g/dL 31.2-35.0 RDW-SD (test code = 91074-5) 46.6 fL 38.5-51.6 RDW-CV (test code = 788-0) 14.0 % 12.1-15.4 PLT (test code = 777-3) 312 See_Comment [Automated messa ge] The system which generated this result transmitted reference range: 150 - 328 10*3/?L. The reference range was not used to interpret this result as normal/abnormal. MPV (test code = 24670-6) 9.7 fL 9.8-13.0 L NRBC/100 WBC (test code = 5850680651) 0.0 See_Comment [Automated me ssage] The system which generated this result transmitted reference range: 0.0 - 10.0 /100 WBCs. The reference range was not used to interpret this result as normal/abnormal. NRBC x10^3 (test code = 8411398388) See_Comment [Automated messa ge] The system which generated this result transmitted reference range: 10*3/?L. The reference range was not used to interpret this result as normal/abnormal. GRAN MAT (NEUT) % (test code = 770-8) 54.9 % IMM GRAN % (test code = 3167266757) 0.30 % LYMPH % (test code = 736-9) 36.0 % MONO % (test code = 5905-5) 6.3 % EOS % (test code = 713-8) 1.6 % BASO % (test code = 706-2) 0.9 % GRAN MAT x10^3(ANC) (test code = 9885662810) 6.35 10*3/uL 1.99-6.95 IMM GRAN x10^3 (test code = 4935057647) 0.03 10*3/uL 0.00-0.06 LYMPH x10^3 (test code = 731-0) 4.15 10*3/uL 1.09-3.23 H MONO x10^3 (test code = 742-7) 0.73 10*3/uL 0.36-1.02 EOS x10^3 (test code = 711-2) 0.18 10*3/uL 0.06-0.53 BASO x10^3 (test code = 704-7) 0.10 10*3/uL 0.01-0.09 H Lab Interpretation (test code = 99165-4) Abnormal [facility] GLUCOSE (AUTOMATED)2023-11-01 05:42:28* Test Item Value Reference Range Interpretation Comme nts POCT GLU (test code = 3095785632) 110 mg/dL 70-110 Lab Interpretation (test cod e = 68811-2) Normal [facility] ABDOMEN PELVIS W [id number] 07:44:05Ordering physician: CHAPITO CONTRERAS Indication: Acute right [...] lesion. 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 The reference range was not used to interpret this result as normal/abnormal. RBC (test code = 789-8) 5.23 See_Comment [Automated [employer]] The system which generated this result transmitted [...] 33.9 g/dL 31.2-35.0 RDW-SD (test code = 38129-6) 45.0 fL 38.5-51.6 RDW-CV (test code = 788-0) 13.6 % 12.1-15.4 PLT (test code = 777-3) 307 See_Comment [Automated messa ge] The system which generated this result transmitted reference range: 150 - 328 10*3/?L. The reference range was not used to interpret this result as normal/abnormal. MPV (test code = 67767-2) 9.3 fL 9.8-13.0 L NRBC/100 WBC (test code = 3644385138) 0.0 See_Comment [Automated [employer] ssage] The system which generated this result transmitted reference range: 0.0 - 10.0 /100 WBCs. The reference range was not used to interpret this result as normal/abnormal. NRBC x10^3 (test code = 0581063250) See_Comment [Automated messa ge] The system which generated this result transmitted reference range: 10*3/?L. The reference range was not used to interpret this result as normal/abnormal. SEG % (test code = 63793-9) 49 % 33-76 LYMPH % (test code = 22887-8) 40 % 14-54 MONO % (test code = 18125-1) 4 % 0-4 EOS % (test code = 25635-5) 7 % 0-3 H ANC (test code = 753-4) 5.81 10*3/uL 1.99-6.95 Lab Interpretation (test code = 52139-7) [facility] Mtqxe5736-34-96 06:32:13* Test Item Value Reference Range Interpretation Comme nts NA (test code = 1462555953) 140 mmol/L 135-145 K (test code = 7212631086) 3.7 mmol/L 3.5-5.0 CL (test code = 0260572436) 105 mmol/L 98-108 CO2 TOTAL (test code = 1927632136) 23 mmol/L 23-31 AGAP (test code = 9859755323) 12 2-16 BUN (test code = 6947343272) 15 mg/dL 7-23 GLUCOSE (test code = 3390819563) 126 mg/dL 70-110 H CREATININE (test code = 8950703438) 0.89 mg/dL 0.60-1.25 TOTAL BILI (test code = 5046558393) 0.6 mg/dL 0.1-1.1 CALCIUM (test code = 0763549953) 9.5 mg/dL 8.6-10.6 T PROTEIN (test code = 6411402873) 8.6 g/dL 6.3-8.2 H ALBUMIN (test code = 9399792271) 4.7 g/dL 3.5-5.0 ALK PHOS (test code = 4995914277) 84 U/L 34-122 ALTv (test code = 1742-6) 38 U/L 5-50 AST(SGOT) (test code = 0128466524) 33 U/L 13-40 eGFR (test code = 61779-9) 107.0 mL/min/1.73m2 CKD-EPI eGFR (2020). Assuming creatinine has been stable day-to-day for at least three months, the eGFR indicates Category G1 (>= 90 mL/min/1.73 m2) Lab Interpretation (test code = 68949-7) [facility], Coxbl8817-59-16 06:31:52* Test Item Value Reference Range Interpretation Comme nts LIPASE (test code = 3310590907) 80 U/L 0-220 Lab Interpretation (test cod e = 13235-8) [facility] Hospital[facility] METABOLIC PANEL (NA, K, CL, CO2, GLUCOSE, BUN, CREATININE, CA)2023-09-26 06:00:26* Test Item Value Reference Range Interpretation Comme nts NA (test code = 2402600556) 139 mmol/L 135-145 K (test code = 3646563267) 3.9 mmol/L 3.5-5.0 CL (test code = 3891604993) 104 mmol/L 98-108 CO2 TOTAL (test code = 9166278003) 25 mmol/L 23-31 AGAP (test code = 3443842374) 10 2-16 BUN (test code = 8364119491) 14 mg/dL 7-23 GLUCOSE (test code = 1314883369) 109 mg/dL 70-110 CREATININE (test code = 3539093444) 0.77 mg/dL 0.60-1.25 CALCIUM (test code = 8468880682) 10.4 mg/dL 8.6-10.6 eGFR (test code = 49782-7) 112.5 mL/min/1.73m2 CKD-EPI eGFR (20 21). Assuming creatinine has been stable day-to-day for at least three months, the eGFR indicates Category G1 (>= 90 mL/min/1.73 m2) [facility]32[facility] (ALB,T.PRO,BILI T,BU/BC,ALT,AST,ALK PHOS)2023-09-26 06:00:26* Test Item Value Reference Range Interpretation Comme nts TOTAL BILI (test code = 6903912056) 0.6 mg/dL 0.1-1.1 BILI UNCON (test code = 8041386781) 0.4 mg/dL 0.1-1.1 BILI CONJ (test code = 1032733270) 0.0 mg/dL 0.0-0.3 T PROTEIN (test code = 9910432884) 8.6 g/dL 6.3-8.2 H ALBUMIN (test code = 1698143059) 4.7 g/dL 3.5-5.0 ALK PHOS (test code = 3447670120) 91 U/L 34-122 ALTv (test code = 1742-6) 40 U/L 5-50 AST(SGOT) (test code = 3810466322) 27 U/L 13-40 Lab Interpretation (test cod e = 02198-4) [facility]* Test Item Value Reference Range Interpretation Comme nts LIPASE (test code = 4213625343) 73 U/L 0-220 Lab Interpretation (test cod e = 03357-3) [facility] [id number] 05:50:26* Test Item Value Reference Range Interpretation [...] 33.8 g/dL 31.2-35.0 RDW-SD (test code = 66056-3) 44.0 fL 38.5-51.6 RDW-CV (test code = 788-0) 13.1 % 12.1-15.4 PLT (test code = 777-3) 317 See_Comment [[employer]] The system which generated this result transmitted reference range: 150 - 328 10*3/?L. The reference range was not used to interpret this result as normal/abnormal. MPV (test code = 78802-6) 9.6 fL 9.8-13.0 L NRBC/100 WBC (test code = 1148342507) 0.0 See_Comment [Automated [facility]] The system which generated this result transmitted reference range: 0.0 - 10.0 /100 WBCs. The reference range was not used to interpret this result as normal/abnormal. NRBC x10^3 (test code = 4076131476) See_Comment [[employer]] The system which generated this result transmitted reference range: 10*3/?L. The reference range was not used to interpret this result as normal/abnormal. GRAN MAT (NEUT) % (test code = 770-8) 50.9 % IMM GRAN % (test code = 2570266311) 0.30 % LYMPH % (test code = 736-9) 38.3 % MONO % (test code = 5905-5) 7.5 % EOS % (test code = 713-8) 2.2 % BASO % (test code = 706-2) 0.8 % GRAN MAT x10^3(ANC) (test code = 3024899403) 5.13 10*3/uL 1.99-6.95 IMM GRAN x10^3 (test code = 7917659926) 0.03 10*3/uL 0.00-0.06 LYMPH x10^3 (test code = 731-0) 3.86 10*3/uL 1.09-3.23 H MONO x10^3 (test code = 742-7) 0.76 10*3/uL 0.36-1.02 EOS x10^3 (test code = 711-2) 0.22 10*3/uL 0.06-0.53 BASO x10^3 (test code = 704-7) 0.08 10*3/uL 0.01-0.09 Lab Interpretation (test code = 93916-0) [facility] [id number] 05:30:49* Test Item Value Reference Range Interpretation Comme nts TROPONIN I (test code = 8894531667) 0.001 ng/mL <=0.034 LAURIE (test code = [...] of biotin. Lab Interpretation (test code = 01035-0) [facility] ([id number])2023-08-24 05:19:05* Test Item Value Reference Range Interpretation Comme nts NA (test code = 9489358207) 138 mmol/L 135-145 K (test code = 6583393699) 4.3 mmol/L 3.5-5.0 CL (test code = 5316050283) 100 mmol/L 98-108 CO2 TOTAL (test code = 4157432283) 25 mmol/L 23-31 AGAP (test code = 0551374720) 13 2-16 BUN (test code = 9923474406) 15 mg/dL 7-23 GLUCOSE (test code = 1695147721) 198 mg/dL 70-110 H CREATININE (test code = 4542539781) 0.86 mg/dL 0.60-1.25 TOTAL BILI (test code = 7260792605) 0.3 mg/dL 0.1-1.1 CALCIUM (test code = 3047630462) 10.3 mg/dL 8.6-10.6 T PROTEIN (test code = 6647991148) 8.6 g/dL 6.3-8.2 H ALBUMIN (test code = 5333622554) 4.5 g/dL 3.5-5.0 ALK PHOS (test code = 0742268415) 94 U/L 34-122 ALTv (test code = 1742-6) 44 U/L 5-50 AST(SGOT) (test code = 8479032638) 28 U/L 13-40 eGFR (test code = 26087-4) 108.8 mL/min/1.73m2 CKD-EPI eGFR (2020). Assuming creatinine has been stable day-to-day for at least three months, the eGFR indicates Category G1 (>= 90 mL/min/1.73 m2) Lab Interpretation (test code = 73505-4) Abnormal [facility] WITH [id number] 05:01:26* Test Item Value Reference Range Interpretation Comme nts WBC (test code = 6690-2) 10.38 See_Comment [Automated [employer]] The system which generated this result transmitted reference range: 4.20 - 10.70 10*3/?L. The reference range was not used to interpret this result as normal/abnormal. RBC (test code = 789-8) 5.08 See_Comment [Automated [employer]] The system which generated this result transmitted [...] 33.5 g/dL 31.2-35.0 RDW-SD (test code = 34408-8) 43.8 fL 38.5-51.6 RDW-CV (test code = 788-0) 13.0 % 12.1-15.4 PLT (test code = 777-3) 298 See_Comment [Automated messa ge] The system which generated this result transmitted reference range: 150 - 328 10*3/?L. The reference range was not used to interpret this result as normal/abnormal. MPV (test code = 56978-6) 10.0 fL 9.8-13.0 NRBC/100 WBC (test code = 2432883656) 0.0 See_Comment [Automated [employer] ssage] The system which generated this result transmitted reference range: 0.0 - 10.0 /100 WBCs. The reference range was not used to interpret this result as normal/abnormal. NRBC x10^3 (test code = 0213443720) See_Comment [Automated messa ge] The system which generated this result transmitted reference range: 10*3/?L. The reference range was not used to interpret this result as normal/abnormal. GRAN MAT (NEUT) % (test code = 770-8) 52.4 % IMM GRAN % (test code = 5299008822) 0.30 % LYMPH % (test code = 736-9) 36.6 % MONO % (test code = 5905-5) 7.2 % EOS % (test code = 713-8) 2.6 % BASO % (test code = 706-2) 0.9 % GRAN MAT x10^3(ANC) (test code = 7954686369) 5.44 10*3/uL 1.99-6.95 IMM GRAN x10^3 (test code = 6800349244) 0.03 10*3/uL 0.00-0.06 LYMPH x10^3 (test code = 731-0) 3.80 10*3/uL 1.09-3.23 H MONO x10^3 (test code = 742-7) 0.75 10*3/uL 0.36-1.02 EOS x10^3 (test code = 711-2) 0.27 10*3/uL 0.06-0.53 BASO x10^3 (test code = 704-7) 0.09 10*3/uL 0.01-0.09 Lab Interpretation (test code = 80788-3) Abnormal [facility] GLUCOSE (AUTOMATED)2023-05-26 02:18:34* Test Item Value Reference Range Interpretation Comme nts POCT GLU (test code = 9958657774) 173 mg/dL 70-110 H Lab Interpretation (test cod e = 77803-6) Abnormal [facility] GLUCOSE(AGE >30DAYS)2023-05-26 02:17:00* Test Item Value Reference Range Interpretation Comme nts POCT Glu (age>30days) (test code = 3342) 173 mg/dL 70-110 A Lab Interpretation (test cod e = 68228-5) [facility] [id number] 01:41:57* Test Item Value Reference Range Interpretation Comme nts TROPONIN I (test code = 5377542694) 0.008 ng/mL <=0.034 LAURIE (test code = [...] of biotin. Lab Interpretation (test code = 58424-5) [facility] GLUCOSE (AUTOMATED)2023-05-26 01:23:43* Test Item Value Reference Range Interpretation Comme nts POCT GLU (test code = 2816423496) 185 mg/dL 70-110 H Lab Interpretation (test cod e = 47589-1) [facility] [id number] 00:40:36* Test Item Value Reference Range Interpretation Comme nts NT-proBNP (test code = 61438-9) <=125 Lab Interpretation (test cod e = 47256-7) [facility] [id number] 00:06:55* Test Item Value Reference Range Interpretation Comme nts TROPONIN I (test code = 5365997234) 0.003 ng/mL <=0.034 LAURIE (test code = [...] of biotin. Lab Interpretation (test code = 59244-6) [facility]20[facility] 23:56:12* Test Item Value Reference Range Interpretation Comme nts MAGNESIUM (test code = 2893690760) 2.0 mg/dL 1.7-2.4 Lab Interpretation (test cod e = 32660-6) [facility] (15398)2023-05-25 23:55:52* Test Item Value Reference Range Interpretation Comme nts NA (test code = 9273632193) 138 mmol/L 135-145 K (test code = 6453084667) 4.3 mmol/L 3.5-5.0 CL (test code = 8639636522) 103 mmol/L 98-108 CO2 TOTAL (test code = 9040277208) 22 mmol/L 23-31 L AGAP (test code = 3472100876) 13 2-16 BUN (test code = 4182768578) 22 mg/dL 7-23 GLUCOSE (test code = 6381182294) 274 mg/dL 70-110 H CREATININE (test code = 7767252743) 0.79 mg/dL 0.60-1.25 TOTAL BILI (test code = 9047311474) 0.6 mg/dL 0.1-1.1 CALCIUM (test code = 6014503165) 9.2 mg/dL 8.6-10.6 T PROTEIN (test code = 1802877589) 8.4 g/dL 6.3-8.2 H ALBUMIN (test code = 8366733989) 4.5 g/dL 3.5-5.0 ALK PHOS (test code = 0426548362) 88 U/L 34-122 ALTv (test code = 1742-6) 48 U/L 5-50 AST(SGOT) (test code = 5608961001) 37 U/L 13-40 eGFR (test code = 3927315398) 106.1 mL/min/1.73m2 LAURIE (test code = LAURIE) [...] imaging tests). Lab Interpretation (test code = 42908-7) [facility] 23:55:32* Test Item Value Reference Range Interpretation Comme nts LIPASE (test code = 1015225982) 154 U/L 0-220 Lab Interpretation (test cod e = 77883-9) [facility] WITH [id number] 23:33:34* Test Item Value Reference Range Interpretation Comme nts WBC (test code = 6690-2) 9.32 See_Comment [Automated [employer]] The system which generated this result transmitted reference range: 4.20 - 10.70 10*3/?L. The reference range was not used to interpret this result as normal/abnormal. RBC (test code = 789-8) 4.89 See_Comment [Automated [employer]] The system which generated this result [...] 33.7 g/dL 31.2-35.0 RDW-SD (test code = 20050-9) 45.4 fL 38.5-51.6 RDW-CV (test code = 788-0) 13.4 % 12.1-15.4 PLT (test code = 777-3) 286 See_Comment [Automated messa ge] The system which generated this result transmitted reference range: 150 - 328 10*3/?L. The reference range was not used to interpret this result as normal/abnormal. MPV (test code = 24856-9) 10.2 fL 9.8-13.0 NRBC/100 WBC (test code = 9444964143) 0.0 See_Comment [[employer]ated [employer] ssage] The system which generated this result transmitted reference range: 0.0 - 10.0 /100 WBCs. The reference range was not used to interpret this result as normal/abnormal. NRBC x10^3 (test code = 4829730699) See_Comment [Automated me ssage] The system which generated this result transmitted reference range: 10*3/?L. The reference range was not used to interpret this result as normal/abnormal. GRAN MAT (NEUT) % (test code = 770-8) 57.3 % IMM GRAN % (test code = 7219088746) 0.40 % LYMPH % (test code = 736-9) 32.6 % MONO % (test code = 5905-5) 6.8 % EOS % (test code = 713-8) 1.9 % BASO % (test code = 706-2) 1.0 % GRAN MAT x10^3(ANC) (test code = 4440140420) 5.34 10*3/uL 1.99-6.95 IMM GRAN x10^3 (test code = 0220980145) 0.04 10*3/uL 0.00-0.06 LYMPH x10^3 (test code = 731-0) 3.04 10*3/uL 1.09-3.23 MONO x10^3 (test code = 742-7) 0.63 10*3/uL 0.36-1.02 EOS x10^3 (test code = 711-2) 0.18 10*3/uL 0.06-0.53 BASO x10^3 (test code = 704-7) 0.09 10*3/uL 0.01-0.09 [facility] with [id number] 07:42:13* Test Item Value Reference Range Interpretation [...] 33.3 g/dL 31.2-35.0 RDW-SD (test code = 84269-7) 44.4 fL 38.5-51.6 RDW-CV (test code = 788-0) 13.6 % 12.1-15.4 PLT (test code = 777-3) 187 See_Comment [Automated [employer]] The system which generated this result transmitted reference range: 150 - 328 10*3/?L. The reference range was not used to interpret this result as normal/abnormal. MPV (test code = 87306-6) 10.4 fL 9.8-13.0 NRBC/100 WBC (test code = 4982849683) 0.0 See_Comment [[employer]ated [employer] ssage] The system which generated this result transmitted reference range: 0.0 - 10.0 /100 WBCs. The reference range was not used to interpret this result as normal/abnormal. NRBC x10^3 (test code = 1418626669) See_Comment [Automated [employer]] The system which generated this result transmitted reference range: 10*3/?L. The reference range was not used to interpret this result as normal/abnormal. GRAN MAT (NEUT) % (test code = 770-8) 55.0 % IMM GRAN % (test code = 6820409506) 0.50 % LYMPH % (test code = 736-9) 34.8 % MONO % (test code = 5905-5) 6.5 % EOS % (test code = 713-8) 2.5 % BASO % (test code = 706-2) 0.7 % GRAN MAT x10^3(ANC) (test code = 5444140304) 5.95 10*3/uL 1.99-6.95 IMM GRAN x10^3 (test code = 5019591869) 0.05 10*3/uL 0.00-0.06 LYMPH x10^3 (test code = 731-0) 3.77 10*3/uL 1.09-3.23 H MONO x10^3 (test code = 742-7) 0.70 10*3/uL 0.36-1.02 EOS x10^3 (test code = 711-2) 0.27 10*3/uL 0.06-0.53 BASO x10^3 (test code = 704-7) 0.08 10*3/uL 0.01-0.09 Lab Interpretation (test code = 63876-2) [facility] Metabolic [id number] 07:32:47* Test Item Value Reference Range Interpretation Comme nts NA (test code = 0828142957) 136 mmol/L 135-145 K (test code = 4405226429) 4.2 mmol/L 3.5-5.0 CL (test code = 7907522835) 104 mmol/L 98-108 CO2 TOTAL (test code = 3412420593) 21 mmol/L 23-31 L AGAP (test code = 8376275612) 11 2-16 BUN (test code = 1474583830) 17 mg/dL 7-23 GLUCOSE (test code = 7265786895) 125 mg/dL 70-110 H CREATININE (test code = 3783885346) 0.63 mg/dL 0.60-1.25 TOTAL BILI (test code = 2660613492) 0.3 mg/dL 0.1-1.1 CALCIUM (test code = 1500011442) 9.3 mg/dL 8.6-10.6 T PROTEIN (test code = 3529036055) 7.8 g/dL 6.3-8.2 ALBUMIN (test code = 2311845920) 4.5 g/dL 3.5-5.0 ALK PHOS (test code = 5862408911) 97 U/L 34-122 ALTv (test code = 1742-6) 42 U/L 5-50 AST(SGOT) (test code = 1667558234) 34 U/L 13-40 eGFR (test code = 9070689920) 137.7 mL/min/1.73m2 LAURIE (test code = LAURIE) [...] imaging tests). Lab Interpretation (test code = 25642-5) [facility] Hospital[facility], [id number] 07:31:52* Test Item Value Reference Range Interpretation Comme nts LIPASE (test code = 1725000432) 73 U/L 0-220 Lab Interpretation (test cod e = 28201-7) [facility] HospitalTHYROID STIMULATING [id number] 18:17:21 * Test Item Value Reference Range Interpretation Comme nts TSH (test code = 6839645632) See_Comment H [Automated [employer]] The system which generated this result transmitted reference range: 0.45 - 4.70 mIU/L. The reference range was not used to interpret this result as normal/abnormal. Lab Interpretation (test code = 93546-4) [facility] HospitalFR [id number] 16:53:41* Test Item Value Reference Range Interpretation Comme nts FREE T4 (test code = 3901165232) See_Comment L [Automated messa ge] The system which generated this result transmitted reference range: 0.78 - 2.20 ng/dL:. The reference range was not used to interpret this result as normal/abnormal. Lab Interpretation (test code = 14708-9) Abnormal [facility] [id number] 16:53:04* Test Item Value Reference Range Interpretation Comme nts FREE T3 (test code = 6623988486) 1.50 pg/mL 2.77-5.27 L Lab Interpretation (test cod e = 05262-9) Abnormal [facility]. METABOLIC PANEL (32929)2022-05-28 16:37:03* Test Item Value Reference Range Interpretation Comme nts NA (test code = 3316412428) 138 mmol/L 135-145 K (test code = 6588187632) 4.4 mmol/L 3.5-5 CL (test code = 1601238803) 101 mmol/L 98-108 CO2 TOTAL (test code = 7864676901) 27 mmol/L 23-31 AGAP (test code = 4388840610) 2-16 BUN (test code = 8244765409) 14 mg/dL 7-23 GLUCOSE (test code = 5347213099) 102 mg/dL 70-110 CREATININE (test code = 9592492137) 0.82 mg/dL 0.6-1.25 TOTAL BILI (test code = 0551485014) 0.5 mg/dL 0.1-1.1 CALCIUM (test code = 6076966881) 9.3 mg/dL 8.6-10.6 T PROTEIN (test code = 8633368989) 8.3 g/dL 6.3-8.2 H ALBUMIN (test code = 4208293155) 4.8 g/dL 3.5-5 ALK PHOS (test code = 3701349154) 75 U/L 34-122 ALTv (test code = 1742-6) 56 U/L 5-50 H AST(SGOT) (test code = 1319548407) 42 U/L 13-40 H eGFR (test code = 2963365478) mL/min/1.73m2 LAURIE (test code = LAURIE) Association [...] imaging tests). Lab Interpretation (test code = 23271-1) Abnormal [facility] WITH [id number] 16:25:38* Test Item Value Reference Range Interpretation Comme nts WBC (test code = 6690-2) See_Comment [[employer]] The system which generated this result transmitted reference range: 4.20 - 10.70 10*3/?L. The reference range was not used to interpret this result as normal/abnormal. RBC (test code = 789-8) See_Comment [Automated [employer]] The system which generated this result transmitted [...] 33.0 g/dL 31.2-35 RDW-SD (test code = 06829-0) 48.1 fL 38.5-51.6 RDW-CV (test code = 788-0) 14.2 % 12.1-15.4 PLT (test code = 777-3) See_Comment [Automated messa ge] The system which generated this result transmitted reference range: 150 - 328 10*3/?L. The reference range was not used to interpret this result as normal/abnormal. MPV (test code = 78865-6) 9.5 fL 9.8-13 L NRBC/100 WBC (test code = 6677202158) See_Comment [Automated [employer] ssage] The system which generated this result transmitted reference range: 0.0 - 10.0 /100 WBCs. The reference range was not used to interpret this result as normal/abnormal. NRBC x10^3 (test code = 5235526479) See_Comment [Automated messa ge] The system which generated this result transmitted reference range: 10*3/?L. The reference range was not used to interpret this result as normal/abnormal. GRAN MAT (NEUT) % (test code = 770-8) 56.3 % IMM GRAN % (test code = 4679464934) 0.70 % LYMPH % (test code = 736-9) 32.8 % MONO % (test code = 5905-5) 6.2 % EOS % (test code = 713-8) 2.7 % BASO % (test code = 706-2) 1.3 % GRAN MAT x10^3(ANC) (test code = 5003867620) 4.87 10*3/uL 1.99-6.95 IMM GRAN x10^3 (test code = 9683047863) 0.06 10*3/uL 0-0.06 LYMPH x10^3 (test code = 731-0) 2.84 10*3/uL 1.09-3.23 MONO x10^3 (test code = 742-7) 0.54 10*3/uL 0.36-1.02 EOS x10^3 (test code = 711-2) 0.23 10*3/uL 0.06-0.53 BASO x10^3 (test code = 704-7) 0.11 10*3/uL 0.01-0.09 H Lab Interpretation (test code = 35745-4) [facility] 06:03:53* Test Item Value Reference Range Interpretation Comme nts MAGNESIUM (test code = 5489903089) 1.8 mg/dL 1.7-2.4 Lab Interpretation (test cod e = 98986-8) [facility] [id number] 06:00:52* Test Item Value Reference Range Interpretation Comments TROPONIN I (test code = 9763430114) 0.002 ng/mL See_Comment [Automated message] The system [...] of biotin. Lab Interpretation (test code = 23682-1) [facility] (80086)2022-05-06 05:49:11* Test Item Value Reference Range Interpretation Comme nts NA (test code = 3357771260) 136 mmol/L 135-145 K (test code = 8313375829) 4.4 mmol/L 3.5-5 CL (test code = 3004658729) 100 mmol/L 98-108 CO2 TOTAL (test code = 3513848608) 23 mmol/L 23-31 AGAP (test code = 9497751407) 2-16 BUN (test code = 7738870003) 16 mg/dL 7-23 GLUCOSE (test code = 4534320405) 116 mg/dL 70-110 H CREATININE (test code = 9948384720) 0.81 mg/dL 0.6-1.25 TOTAL BILI (test code = 5818214910) 0.6 mg/dL 0.1-1.1 CALCIUM (test code = 5473419175) 10.3 mg/dL 8.6-10.6 T PROTEIN (test code = 4759437765) 9.2 g/dL 6.3-8.2 H ALBUMIN (test code = 8086994043) 5.3 g/dL 3.5-5 H ALK PHOS (test code = 1099461008) 89 U/L 34-122 ALTv (test code = 1742-6) 44 U/L 5-50 AST(SGOT) (test code = 1298727683) 36 U/L 13-40 eGFR (test code = 5690702405) mL/min/1.73m2 LAURIE (test code = LAURIE) Association [...] imaging tests). Lab Interpretation (test code = 83942-6) [facility] 05:48:51* Test Item Value Reference Range Interpretation Comme nts LIPASE (test code = 7883673598) 67 U/L 0-220 Lab Interpretation (test cod e = 83865-4) [facility] WITH [id number] 05:36:33* Test Item Value Reference Range Interpretation Comme nts WBC (test code = 6690-2) See_Comment H [Automated [employer]] The system which generated this result transmitted reference range: 4.20 - 10.70 10*3/?L. The reference range was not used to interpret this result as normal/abnormal. RBC (test code = 789-8) See_Comment [Automated [employer]] The system which generated this result [...] 34.1 g/dL 31.2-35 RDW-SD (test code = 59843-6) 45.9 fL 38.5-51.6 RDW-CV (test code = 788-0) 13.9 % 12.1-15.4 PLT (test code = 777-3) See_Comment [Automated [employer]] The system which generated this result transmitted reference range: 150 - 328 10*3/?L. The reference range was not used to interpret this result as normal/abnormal. MPV (test code = 60466-2) 9.5 fL 9.8-13 L NRBC/100 WBC (test code = 2566998364) See_Comment [Automated me ssage] The system which generated this result transmitted reference range: 0.0 - 10.0 /100 WBCs. The reference range was not used to interpret this result as normal/abnormal. NRBC x10^3 (test code = 9381704775) See_Comment [Automated messa ge] The system which generated this result transmitted reference range: 10*3/?L. The reference range was not used to interpret this result as normal/abnormal. GRAN MAT (NEUT) % (test code = 770-8) 60.3 % IMM GRAN % (test code = 8000103651) 0.80 % LYMPH % (test code = 736-9) 27.6 % MONO % (test code = 5905-5) 6.8 % EOS % (test code = 713-8) 3.5 % BASO % (test code = 706-2) 1.0 % GRAN MAT x10^3(ANC) (test code = 8431336288) 6.95 10*3/uL 1.99-6.95 IMM GRAN x10^3 (test code = 7736126886) 0.09 10*3/uL 0-0.06 H LYMPH x10^3 (test code = 731-0) 3.19 10*3/uL 1.09-3.23 MONO x10^3 (test code = 742-7) 0.79 10*3/uL 0.36-1.02 EOS x10^3 (test code = 711-2) 0.40 10*3/uL 0.06-0.53 BASO x10^3 (test code = 704-7) 0.12 10*3/uL 0.01-0.09 H Lab Interpretation (test code = 44617-0) [facility] (64029)2022-05-01 13:28:01* Test Item Value Reference Range Interpretation Comme nts NA (test code = 9529517624) 139 mmol/L 135-145 K (test code = 9551268610) 4.7 mmol/L 3.5-5 CL (test code = 9189869682) 104 mmol/L 98-108 CO2 TOTAL (test code = 1249050402) 23 mmol/L 23-31 AGAP (test code = 7804329355) 2-16 BUN (test code = 5956956661) 14 mg/dL 7-23 GLUCOSE (test code = 3288951877) 128 mg/dL 70-110 H CREATININE (test code = 6551665445) 0.62 mg/dL 0.6-1.25 TOTAL BILI (test code = 8200974943) 0.4 mg/dL 0.1-1.1 CALCIUM (test code = 5875701506) 9.2 mg/dL 8.6-10.6 T PROTEIN (test code = 1374019615) 8.1 g/dL 6.3-8.2 ALBUMIN (test code = 1942309762) 4.6 g/dL 3.5-5 ALK PHOS (test code = 4308549852) 92 U/L 34-122 ALTv (test code = 1742-6) 43 U/L 5-50 AST(SGOT) (test code = 8664333839) 30 U/L 13-40 eGFR (test code = 1513004917) mL/min/1.73m2 LAURIE (test code = LAURIE) Association [...] imaging tests). Lab Interpretation (test code = 45166-4) Abnormal [facility] WITH [id number] 13:20:02* Test Item Value Reference Range Interpretation Comme nts WBC (test code = 6690-2) See_Comment [Automated [employer]] The system which generated this result transmitted reference range: 4.20 - 10.70 10*3/?L. The reference range was not used to interpret this result as normal/abnormal. RBC (test code = 789-8) See_Comment [Automated [employer]] The system which generated this result [...] 32.8 g/dL 31.2-35 RDW-SD (test code = 61178-7) 47.5 fL 38.5-51.6 RDW-CV (test code = 788-0) 14.1 % 12.1-15.4 PLT (test code = 777-3) See_Comment [[employer]ated [employer]] The system which generated this result transmitted reference range: 150 - 328 10*3/?L. The reference range was not used to interpret this result as normal/abnormal. MPV (test code = 71832-0) 9.3 fL 9.8-13 L NRBC/100 WBC (test code = 3525739135) See_Comment [[employer]ated [employer]age] The system which generated this result transmitted reference range: 0.0 - 10.0 /100 WBCs. The reference range was not used to interpret this result as normal/abnormal. NRBC x10^3 (test code = 4659565000) See_Comment [Automated messa ge] The system which generated this result transmitted reference range: 10*3/?L. The reference range was not used to interpret this result as normal/abnormal. GRAN MAT (NEUT) % (test code = 770-8) 58.9 % IMM GRAN % (test code = 3429680749) 0.60 % LYMPH % (test code = 736-9) 29.2 % MONO % (test code = 5905-5) 6.8 % EOS % (test code = 713-8) 3.5 % BASO % (test code = 706-2) 1.0 % GRAN MAT x10^3(ANC) (test code = 8336999481) 5.80 10*3/uL 1.99-6.95 IMM GRAN x10^3 (test code = 5245101701) 0.06 10*3/uL 0-0.06 LYMPH x10^3 (test code = 731-0) 2.87 10*3/uL 1.09-3.23 MONO x10^3 (test code = 742-7) 0.67 10*3/uL 0.36-1.02 EOS x10^3 (test code = 711-2) 0.34 10*3/uL 0.06-0.53 BASO x10^3 (test code = 704-7) 0.10 10*3/uL 0.01-0.09 H Lab Interpretation (test code = 65615-5) Abnormal [facility] [id number] 07:04:38* Test Item Value Reference Range Interpretation Comments TROPONIN I (test code = 3593035049) 0.002 ng/mL See_Comment [Automated message] The system [...] of biotin. Lab Interpretation (test code = 87667-6) [facility] [id number] 07:00:14* Test Item Value Reference Range Interpretation Comme nts NT-proBNP (test code = 7603594121) 25 pg/mL See_Comment [Automated message] The system which generated this result transmitted reference range: <=125. The reference range was not used to interpret this result as normal/abnormal. LAURIE (test code = LAURIE) Biotin has been reported to cause a negative bias, interpret results relative to patient's use of biotin. Lab Interpretation (test code = 23838-9) [facility] HospitalETHANOL2022-04-[facility] 06:53:02* Test Item Value Reference Range Interpretation Comme nts ALCOHOL (test code = 4097178132) <10 mg/dL LAURIE (test code = LAURIE) <10 Icdnuqyu12-730 Toxic>100 Depression of LACEWORKER>400 [facility] 06:50:57* Test Item Value Reference Range Interpretation Comme nts LIPASE (test code = 6719782748) 65 U/L 0-220 Lab Interpretation (test cod e = 64565-9) [facility] (22595)2022-02-08 06:50:57* Test Item Value Reference Range Interpretation Comme nts NA (test code = 9518847011) 138 mmol/L 135-145 K (test code = 7922509210) 4.3 mmol/L 3.5-5.0 CL (test code = 9244168188) 103 mmol/L 98-108 CO2 TOTAL (test code = 2987175651) 23 mmol/L 23-31 AGAP (test code = 9047794640) 2-16 BUN (test code = 4356357822) 14 mg/dL 7-23 GLUCOSE (test code = 9570665213) 142 mg/dL 70-110 H CREATININE (test code = 1642728130) 0.60 mg/dL 0.60-1.25 TOTAL BILI (test code = 1624268756) 0.5 mg/dL 0.1-1.1 CALCIUM (test code = 3330625795) 9.1 mg/dL 8.6-10.6 T PROTEIN (test code = 2706026537) 7.9 g/dL 6.3-8.2 ALBUMIN (test code = 2217126982) 4.5 g/dL 3.5-5.0 ALK PHOS (test code = 1745319937) 81 U/L 34-122 ALTv (test code = 1742-6) 28 U/L 5-50 AST(SGOT) (test code = 2926662061) 24 U/L 13-40 eGFR (test code = 9262206006) mL/min/1.73m2 LAURIE (test code = LAURIE) Association [...] imaging tests). Lab Interpretation (test code = 16452-8) [facility] [id number] 06:47:31* Test Item Value Reference Range Interpretation Comme [facility] APTT Patient (test code = 3173-2) See_Comment [Automated message] The system which generated this result transmitted reference range: 23 - 38 Seconds. The reference range was not used to interpret this result as normal/abnormal. LAURIE (test code = LAURIE) [facility] FACILITY patient population mean normal value for aPTT is 30 seconds. Lab Interpretation (test code = 32947-0) [facility] / [id number] 06:45:33* Test Item Value Reference Range Interpretation Comme [facility] PROTIME PATIENT (test code = 5964-2) See_Comment [Automated [employer]] The system which generated this result transmitted reference range: 12.0 - 14.7 Seconds. The reference range was not used to interpret this result as normal/abnormal. INR (test code = 6301-6) Normal INR <1.1; Warfarin Therapeutic range 2.0 to 3.0 or 2.5 to 3.5, depending upon the indications. Lab Interpretation (test code = 35984-6) [facility] WITH [id number] 06:37:36* Test Item Value Reference Range Interpretation Comme [facility] WBC (test code = 6690-2) See_Comment [Automated [employer]] The system which generated this result transmitted reference range: 4.20 - 10.70 10*3/?L. The reference range was not used to interpret this result as normal/abnormal. RBC (test code = 789-8) See_Comment [Automated [employer]] The system which generated this result transmitted [...] 33.4 g/dL 31.2-35.0 RDW-SD (test code = 98293-1) 42.7 fL 38.5-51.6 RDW-CV (test code = 788-0) 13.1 % 12.1-15.4 PLT (test code = 777-3) See_Comment [Automated messa ge] The system which generated this result transmitted reference range: 150 - 328 10*3/?L. The reference range was not used to interpret this result as normal/abnormal. MPV (test code = 77800-3) 9.7 fL 9.8-13.0 L NRBC/100 WBC (test code = 4308964854) See_Comment [Automated [employer] ssage] The system which generated this result transmitted reference range: 0.0 - 10.0 /100 WBCs. The reference range was not used to interpret this result as normal/abnormal. NRBC x10^3 (test code = 6264964553) <0.01 See_Comment [Automated messa ge] The system which generated this result transmitted reference range: 10*3/?L. The reference range was not used to interpret this result as normal/abnormal. GRAN MAT (NEUT) % (test code = 770-8) 54.9 % IMM GRAN % (test code = 6070765383) 0.70 % LYMPH % (test code = 736-9) 32.9 % MONO % (test code = 5905-5) 8.7 % EOS % (test code = 713-8) 2.0 % BASO % (test code = 706-2) 0.8 % GRAN MAT x10^3(ANC) (test code = 8101310125) 5.84 10*3/uL 1.99-6.95 IMM GRAN x10^3 (test code = 7256380215) 0.07 10*3/uL 0.00-0.06 H LYMPH x10^3 (test code = 731-0) 3.50 10*3/uL 1.09-3.23 H MONO x10^3 (test code = 742-7) 0.92 10*3/uL 0.36-1.02 EOS x10^3 (test code = 711-2) 0.21 10*3/uL 0.06-0.53 BASO x10^3 (test code = 704-7) 0.09 10*3/uL 0.01-0.09 Lab Interpretation (test code = 30984-6) [facility] Hospital[facility] [id number] 01:09:15* Test Item Value Reference Range Interpretation Comments TROPONIN I (test code = 9080779071) 0.003 ng/mL See_Comment [Automated message] The system [...] of biotin. Lab Interpretation (test code = 52165-3) [facility] HospitalCOMP. METABOLIC PANEL (86865)2021-10-15 00:56:56* Test Item Value Reference Range Interpretation Comme nts NA (test code = 5367551878) 135 mmol/L 135-145 K (test code = 6803411053) 4.6 mmol/L 3.5-5.0 CL (test code = 4506520759) 101 mmol/L 98-108 CO2 TOTAL (test code = 7217625467) 25 mmol/L 23-31 AGAP (test code = 3343628341) 2-16 BUN (test code = 4284120531) 20 mg/dL 7-23 GLUCOSE (test code = 1655895108) 130 mg/dL 70-110 H CREATININE (test code = 3584710042) 0.92 mg/dL 0.60-1.25 TOTAL BILI (test code = 3044708375) 0.4 mg/dL 0.1-1.1 CALCIUM (test code = 5965798792) 10.0 mg/dL 8.6-10.6 T PROTEIN (test code = 1948024748) 8.5 g/dL 6.3-8.2 H ALBUMIN (test code = 1525123210) 4.8 g/dL 3.5-5.0 ALK PHOS (test code = 0202143632) 89 U/L 34-122 ALTv (test code = 1742-6) 59 U/L 5-50 H AST(SGOT) (test code = 1038753873) 38 U/L 13-40 eGFR (test code = 4895180575) mL/min/1.73m2 LAURIE (test code = LAURIE) Association [...] imaging tests). Lab Interpretation (test code = 33010-4) [facility]2021-[facility] 00:56:36* Test Item Value Reference Range Interpretation Comme nts LIPASE (test code = 9917150575) 77 U/L 0-220 Lab Interpretation (test cod e = 53580-4) Normal [facility] WITH [id number] 00:37:36* Test Item Value Reference Range Interpretation [...] 33.6 g/dL 31.2-35.0 RDW-SD (test code = 57843-8) 44.2 fL 38.5-51.6 RDW-CV (test code = 788-0) 13.3 % 12.1-15.4 PLT (test code = 777-3) See_Comment [Automated messa ge] The system which generated this result transmitted reference range: 150 - 328 10*3/?L. The reference range was not used to interpret this result as normal/abnormal. MPV (test code = 47997-2) 9.5 fL 9.8-13.0 L NRBC/100 WBC (test code = 9703618256) See_Comment [Automated [employer]] The system which generated this result transmitted reference range: 0.0 - 10.0 /100 WBCs. The reference range was not used to interpret this result as normal/abnormal. NRBC x10^3 (test code = 3502955659) <0.01 See_Comment [Automated messa ge] The system which generated this result transmitted reference range: 10*3/?L. The reference range was not used to interpret this result as normal/abnormal. GRAN MAT (NEUT) % (test code = 770-8) 55.3 % IMM GRAN % (test code = 0547311635) 0.60 % LYMPH % (test code = 736-9) 32.5 % MONO % (test code = 5905-5) 7.8 % EOS % (test code = 713-8) 2.7 % BASO % (test code = 706-2) 1.1 % GRAN MAT x10^3(ANC) (test code = 2585133985) 5.74 10*3/uL 1.99-6.95 IMM GRAN x10^3 (test code = 8881455273) 0.06 10*3/uL 0.00-0.06 LYMPH x10^3 (test code = 731-0) 3.37 10*3/uL 1.09-3.23 H MONO x10^3 (test code = 742-7) 0.81 10*3/uL 0.36-1.02 EOS x10^3 (test code = 711-2) 0.28 10*3/uL 0.06-0.53 BASO x10^3 (test code = 704-7) 0.11 10*3/uL 0.01-0.09 H Lab Interpretation (test code = 42624-1) [facility] HospitalCOVID-19 (ID NOW RAPID TESTING)2021-03-15 04:10:11* Test Item Value Reference Range Interpretation Comme nts SARS-CoV-2 Rapid ID NOW (test code = 94694-3) Not Detected Not Detected LAURIE (test code = LAURIE) ID NOW COVID-19 As say is an isothermal nucleic acid amplification test intended for the qualitative detection of nucleic acid from SARS-CoV-2 viral RNA in nasopharyngeal (DIRECTOR SERVICE) specimens. It is used under Emergency Use [...] clinically indicated. Lab Interpretation (test code = 17760-5) Normal [facility]. METABOLIC PANEL (86568)2021-03-15 03:35:30* Test Item Value Reference Range Interpretation Comme nts NA (test code = 7861517621) 139 mmol/L 135-145 K (test code = 7941307139) 3.2 mmol/L 3.5-5.0 L CL (test code = 9806773161) 109 mmol/L 98-108 H CO2 TOTAL (test code = 3018453812) 23 mmol/L 23-31 AGAP (test code = 7596793201) 2-16 BUN (test code = 8665174510) 19 mg/dL 7-23 GLUCOSE (test code = 5671826616) 150 mg/dL 70-110 H CREATININE (test code = 1713090707) 0.81 mg/dL 0.60-1.25 TOTAL BILI (test code = 6251549578) 0.3 mg/dL 0.1-1.1 CALCIUM (test code = 4902165340) 8.2 mg/dL 8.6-10.6 L T PROTEIN (test code = 9482433136) 6.9 g/dL 6.3-8.2 ALBUMIN (test code = 6306214730) 4.0 g/dL 3.5-5.0 ALK PHOS (test code = 2554629623) 77 U/L 34-122 ALTv (test code = 1742-6) 22 U/L 5-50 AST(SGOT) (test code = 3291785837) 26 U/L 13-40 eGFR (test code = 3741293481) mL/min/1.73m2 LAURIE (test code = LAURIE) Association [...] imaging tests). Lab Interpretation (test code = 71312-5) [facility] HospitalURINALYSIS2021-05-27 03:35:00* Test Item Value Reference Range Interpretation Comme nts APPEARANCE (test code = 2667145562) Clear Clear COLOR (test code = 7862896137) Yellow Yellow PH (test code = 5213983783) 4.8-8.0 SP GRAVITY (test code = 4743543182) 1.003-1.030 GLU U QUAL (test code = 5058441914) Normal Normal BLOOD (test code = 8002500874) Negative Negative KETONES (test code = 7751141408) 5 mg/dL Negative A PROTEIN (test code = 2887-8) Negative Negative UROBILIN (test code = 0387065938) Normal Normal BILIRUBIN (test code = 0390137571) Negative Negative NITRITE (test code = 3871322510) Negative Negative LEUK KENNY (test code = 6504012835) Negative Negative RBC/HPF (test code = 0068357714) <1 See_Comment [[employer]] The system which generated this result transmitted reference range: 0 - 3 HPF. The reference range was not used to interpret this result as normal/abnormal. WBC/HPF (test code = 6893956944) <1 See_Comment [[employer]] The system which generated this result transmitted reference range: 0 - 5 HPF. The reference range was not used to interpret this result as normal/abnormal. BACTERIA (test code = 1051974912) Negative Negative MUCOUS (test code = 7001960159) Slight Negative LPF A SQ EPITH (test code = 8507242850) <1 HPF Lab Interpretation (test code = 34352-8) Abnormal [facility] WITH [id number] 03:22:25* Test Item Value Reference Range Interpretation [...] 33.3 g/dL 31.2-35.0 RDW-SD (test code = 87823-4) 45.8 fL 38.5-51.6 RDW-CV (test code = 788-0) 13.7 % 12.1-15.4 PLT (test code = 777-3) See_Comment H [Automated messa ge] The system which generated this result transmitted reference range: 150 - 328 10*3/?L. The reference range was not used to interpret this result as normal/abnormal. MPV (test code = 09839-4) 9.4 fL 9.8-13.0 L NRBC/100 WBC (test code = 5898135597) See_Comment [Automated [employer] ss[employer]] The system which generated this result transmitted reference range: 0.0 - 10.0 /100 WBCs. The reference range was not used to interpret this result as normal/abnormal. NRBC x10^3 (test code = 7172625201) <0.01 See_Comment [Automated messa ge] The system which generated this result transmitted reference range: 10*3/?L. The reference range was not used to interpret this result as normal/abnormal. GRAN MAT (NEUT) % (test code = 770-8) 58.4 % IMM GRAN % (test code = 2731964088) 0.50 % LYMPH % (test code = 736-9) 30.5 % MONO % (test code = 5905-5) 7.5 % EOS % (test code = 713-8) 2.2 % BASO % (test code = 706-2) 0.9 % GRAN MAT x10^3(ANC) (test code = 4591888888) 5.75 10*3/uL 1.99-6.95 IMM GRAN x10^3 (test code = 5902023534) 0.05 10*3/uL 0.00-0.06 LYMPH x10^3 (test code = 731-0) 3.00 10*3/uL 1.09-3.23 MONO x10^3 (test code = 742-7) 0.74 10*3/uL 0.36-1.02 EOS x10^3 (test code = 711-2) 0.22 10*3/uL 0.06-0.53 BASO x10^3 (test code = 704-7) 0.09 10*3/uL 0.01-0.09 Lab Interpretation (test code = 24914-2) [facility] HospitalCOMP. METABOLIC PANEL (78518)2020-09-08 23:50:00* Test Item Value Reference Range Interpretation Comme nts NA (test code = 3112113960) 139 mmol/L 135-145 K (test code = 4882167302) 4.1 mmol/L 3.5-5 CL (test code = 0942069174) 107 mmol/L 98-108 CO2 TOTAL (test code = 6782015395) 22 mmol/L 23-31 L AGAP (test code = 2197583718) 2-16 BUN (test code = 6034719775) 12 mg/dL 7-23 GLUCOSE (test code = 7225380290) 115 mg/dL 70-110 H CREATININE (test code = 3409345841) 0.54 mg/dL 0.6-1.25 L TOTAL BILI (test code = 0642955026) 0.3 mg/dL 0.1-1.1 CALCIUM (test code = 1841137688) 9.3 mg/dL 8.6-10.6 T PROTEIN (test code = 5891229784) 7.6 g/dL 6.3-8.2 ALBUMIN (test code = 7343486121) 4.3 g/dL 3.5-5 ALK PHOS (test code = 8036662708) 80 U/L 34-122 ALTv (test code = 1742-6) 21 U/L 5-50 AST(SGOT) (test code = 2396065398) 21 U/L 13-40 eGFR Calculation (Non-) (test code = 3162371944) mL/min/1.73m2 eGFR Calculation () (test code = 3223181222) mL/min/1.73m2 LAURIE (test code = LAURIE) Association [...] imaging tests). Lab Interpretation (test code = 38414-6) [facility]ASE2020-11-20 23:50:00* Test Item Value Reference Range Interpretation Comme nts LIPASE (test code = 2770766622) 68 U/L 0-220 Lab Interpretation (test cod e = 54315-8) [facility] WITH [id number] 23:22:00* Test Item Value Reference Range Interpretation Comme nts WBC (test code = 6690-2) See_Comment [Automated [employer]] The system which generated this result transmitted reference range: 4.20 - 10.70 10*3/?L. The reference range was not used to interpret this result as normal/abnormal. RBC (test code = 789-8) See_Comment [Automated [employer]] The system which generated this result transmitted [...] 34.1 g/dL 31.2-35 RDW-SD (test code = 85195-5) 40.8 fL 38.5-51.6 RDW-CV (test code = 788-0) 12.5 % 12.1-15.4 PLT (test code = 777-3) See_Comment [Automated [employer]] The system which generated this result transmitted reference range: 150 - 328 10*3/?L. The reference range was not used to interpret this result as normal/abnormal. MPV (test code = 13809-0) 9.1 fL 9.8-13 L NRBC/100 WBC (test code = 0102270089) See_Comment [Automated me ssage] The system which generated this result transmitted reference range: 0.0 - 10.0 /100 WBCs. The reference range was not used to interpret this result as normal/abnormal. NRBC x10^3 (test code = 2196758403) <0.01 See_Comment [Automated messa ge] The system which generated this result transmitted reference range: 10*3/?L. The reference range was not used to interpret this result as normal/abnormal. GRAN MAT (NEUT) % (test code = 770-8) 59.0 % IMM GRAN % (test code = 9749733111) 0.60 % LYMPH % (test code = 736-9) 31.3 % MONO % (test code = 5905-5) 6.6 % EOS % (test code = 713-8) 1.9 % BASO % (test code = 706-2) 0.6 % GRAN MAT x10^3(ANC) (test code = 6081724975) 5.85 10*3/uL 1.99-6.95 IMM GRAN x10^3 (test code = 7550606715) 0.06 10*3/uL 0-0.06 LYMPH x10^3 (test code = 731-0) 3.10 10*3/uL 1.09-3.23 MONO x10^3 (test code = 742-7) 0.65 10*3/uL 0.36-1.02 EOS x10^3 (test code = 711-2) 0.19 10*3/uL 0.06-0.53 BASO x10^3 (test code = 704-7) 0.06 10*3/uL 0.01-0.09 Lab Interpretation (test code = 57360-1) [facility] Hospital[facility] PELVIS W [id number] 17:21:17CT Abdomen and Pelvis with intravenous contrast. [...] fluid inthe abdomen or in the pelvis.2. Hepatomegaly.[facility]. METABOLIC PANEL (79357)2020-09-06 16:39:00* Test Item Value Reference Range Interpretation Comme nts NA (test code = 5660460260) 138 mmol/L 135-145 K (test code = 6312437671) 4.2 mmol/L 3.5-5 CL (test code = 6412632316) 103 mmol/L 98-108 CO2 TOTAL (test code = 6287318062) 25 mmol/L 23-31 AGAP (test code = 7322804576) 2-16 BUN (test code = 4688097595) 17 mg/dL 7-23 GLUCOSE (test code = 3064755396) 124 mg/dL 70-110 H CREATININE (test code = 9203714162) 0.95 mg/dL 0.6-1.25 TOTAL BILI (test code = 9940314971) 0.4 mg/dL 0.1-1.1 CALCIUM (test code = 7229803648) 9.7 mg/dL 8.6-10.6 T PROTEIN (test code = 5619658689) 7.9 g/dL 6.3-8.2 ALBUMIN (test code = 3496022132) 4.5 g/dL 3.5-5 ALK PHOS (test code = 4359053067) 75 U/L 34-122 ALTv (test code = 1742-6) 28 U/L 5-50 AST(SGOT) (test code = 0843254229) 23 U/L 13-40 eGFR Calculation (Non-) (test code = 9624688401) mL/min/1.73m2 eGFR Calculation () (test code = 6037897330) mL/min/1.73m2 LAURIE (test code = LAURIE) Association [...] imaging tests). Lab Interpretation (test code = 50538-1) [facility]2020-11-[facility] 16:39:00* Test Item Value Reference Range Interpretation Comme nts LIPASE (test code = 0623986851) 70 U/L 0-220 Lab Interpretation (test cod e = 91200-4) [facility] HospitalMAGNESIUM2020-11-18 16:39:00* Test Item Value Reference Range Interpretation Comme nts MAGNESIUM (test code = 4176500266) 1.9 mg/dL 1.7-2.4 Lab Interpretation (test cod e = 54918-6) [facility] HospitalLactic Acid Whole [id number] 16:38:00* Test Item Value Reference Range Interpretation Comme nts LACTIC ACID (test code = 0748645387) 1.51 mmol/L [facility] WITH [id number] 16:20:00* Test Item Value Reference Range Interpretation Comme nts WBC (test code = 6690-2) See_Comment [Automated [employer]] The system which generated this result [...] 32.8 g/dL 31.2-35 RDW-SD (test code = 59407-5) 42.2 fL 38.5-51.6 RDW-CV (test code = 788-0) 12.6 % 12.1-15.4 PLT (test code = 777-3) See_Comment [Automated [employer]] The system which generated this result transmitted reference range: 150 - 328 10*3/?L. The reference range was not used to interpret this result as normal/abnormal. MPV (test code = 56022-1) 9.3 fL 9.8-13 L NRBC/100 WBC (test code = 0540301222) See_Comment [Automated me ssage] The system which generated this result transmitted reference range: 0.0 - 10.0 /100 WBCs. The reference range was not used to interpret this result as normal/abnormal. NRBC x10^3 (test code = 9455593377) <0.01 See_Comment [Automated messa ge] The system which generated this result transmitted reference range: 10*3/?L. The reference range was not used to interpret this result as normal/abnormal. GRAN MAT (NEUT) % (test code = 770-8) 64.9 % IMM GRAN % (test code = 3281576609) 0.50 % LYMPH % (test code = 736-9) 25.0 % MONO % (test code = 5905-5) 7.5 % EOS % (test code = 713-8) 1.3 % BASO % (test code = 706-2) 0.8 % GRAN MAT x10^3(ANC) (test code = 8269534662) 5.99 10*3/uL 1.99-6.95 IMM GRAN x10^3 (test code = 4839809570) 0.05 10*3/uL 0-0.06 LYMPH x10^3 (test code = 731-0) 2.31 10*3/uL 1.09-3.23 MONO x10^3 (test code = 742-7) 0.69 10*3/uL 0.36-1.02 EOS x10^3 (test code = 711-2) 0.12 10*3/uL 0.06-0.53 BASO x10^3 (test code = 704-7) 0.07 10*3/uL 0.01-0.09 Lab Interpretation (test code = 61707-5) [facility] (90714[facility]2020-08-30 10:29:00* Test Item Value Reference Range Interpretation Comme nts NA (test code = 7385161911) 139 mmol/L 135-145 K (test code = 8531366774) 4.7 mmol/L 3.5-5 CL (test code = 4540319082) 105 mmol/L 98-108 CO2 TOTAL (test code = 0153352938) 24 mmol/L 23-31 AGAP (test code = 5329497879) 2-16 BUN (test code = 7065450728) 21 mg/dL 7-23 GLUCOSE (test code = 9944550110) 109 mg/dL 70-110 CREATININE (test code = 4025672913) 0.99 mg/dL 0.6-1.25 TOTAL BILI (test code = 8812447974) 0.4 mg/dL 0.1-1.1 CALCIUM (test code = 3165730029) 9.4 mg/dL 8.6-10.6 T PROTEIN (test code = 4880280782) 7.4 g/dL 6.3-8.2 ALBUMIN (test code = 6016556482) 4.2 g/dL 3.5-5 ALK PHOS (test code = 6824500718) 68 U/L 34-122 ALTv (test code = 1742-6) 33 U/L 5-50 AST(SGOT) (test code = 6691424827) 28 U/L 13-40 eGFR Calculation (Non-) (test code = 7031982289) mL/min/1.73m2 eGFR Calculation () (test code = 4937618842) mL/min/1.73m2 LAURIE (test code = LAURIE) Association [...] or urine or abnormalities in imaging tests). [facility] WITH [id number] 09:50:00* Test Item Value Reference Range Interpretation [...] 32.4 g/dL 31.2-35 RDW-SD (test code = 02824-5) 43.6 fL 38.5-51.6 RDW-CV (test code = 788-0) 13.0 % 12.1-15.4 PLT (test code = 777-3) See_Comment [Automated message] The system which generated this result transmitted reference range: 150 - 328 10*3/?L. The reference range was not used to interpret this result as normal/abnormal. MPV (test code = 25867-6) 10.0 fL 9.8-13 NRBC/100 WBC (test code = 5335387503) See_Comment [Automated message] The system which generated this result transmitted reference range: 0.0 - 10.0 /100 WBCs. The reference range was not used to interpret this result as normal/abnormal. NRBC x10^3 (test code = 4996086490) <0.01 See_Comment [Automated message] The system which generated this result transmitted reference range: 10*3/?L. The reference range was not used to interpret this result as normal/abnormal. GRAN MAT (NEUT) % (test code = 770-8) 80.1 % IMM GRAN % (test code = 1109952336) 0.50 % LYMPH % (test code = 736-9) 12.5 % MONO % (test code = 5905-5) 6.5 % EOS % (test code = 713-8) 0.1 % BASO % (test code = 706-2) 0.3 % GRAN MAT x10^3(ANC) (test code = 9450389279) 12.09 10*3/uL 1.99-6.95 H IMM GRAN x10^3 (test code = 6314404623) 0.08 10*3/uL 0-0.06 H LYMPH x10^3 (test code = 731-0) 1.89 10*3/uL 1.09-3.23 MONO x10^3 (test code = 742-7) 0.98 10*3/uL 0.36-1.02 EOS x10^3 (test code = 711-2) <0.03 0.06-0.53 L BASO x10^3 (test code = 704-7) 0.04 10*3/uL 0.01-0.09 Lab Interpretation (test code = 86260-5) [facility] HospitalHEPATIC FUNCTION PANEL (09790) (ALB,T.PRO,BILI T,BU/BC,ALT,AST,ALK PHOS)2020-08-28 21:15:00* Test Item Value Reference Range Interpretation Comme nts TOTAL BILI (test code = 0513062828) 0.6 mg/dL 0.1-1.1 BILI UNCON (test code = 8245065922) 0.4 mg/dL 0.1-1.1 BILI CONJ (test code = 4302859917) 0.0 mg/dL 0-0.3 T PROTEIN (test code = 5621587950) 7.2 g/dL 6.3-8.2 ALBUMIN (test code = 4568151503) 3.9 g/dL 3.5-5 ALK PHOS (test code = 6671927550) 65 U/L 34-122 ALTv (test code = 1742-6) 20 U/L 5-50 AST(SGOT) (test code = 4785474444) 25 U/L 13-40 Lab Interpretation (test cod e = 77725-8) [facility] ABDOMEN [id number] 18:22:30 Hepatomegaly with moderate hepatic steatosis. Cholelithiasis [...] sign which could be related to stone. [facility] HospitalXR CHEST 1 [id number] 14:32:06No acute cardiopulmonary abnormality. Preliminary Report Dictated [...] have reviewed this study andagree with theabove report.[facility] HospitalBasi Metabolic Panel (NA, K, CL, CO2, GLUCOSE, BUN, CREATININE, CA) 2020-08-28 11:39:00* Test Item Value Reference Range Interpretation Comme nts NA (test code = 4283888848) 137 mmol/L 135-145 K (test code = 5870782768) 3.9 mmol/L 3.5-5 CL (test code = 1009716050) 104 mmol/L 98-108 CO2 TOTAL (test code = 4336335428) 28 mmol/L 23-31 AGAP (test code = 2728568938) 2-16 BUN (test code = 5461495626) 15 mg/dL 7-23 GLUCOSE (test code = 1150678691) 96 mg/dL 70-110 CREATININE (test code = 2406035520) 0.68 mg/dL 0.6-1.25 CALCIUM (test code = 8744556713) 9.2 mg/dL 8.6-10.6 eGFR Calculation (Non-) (test code = 1414384271) mL/min/1.73m2 eGFR Calculation () (test code = 1212077356) mL/min/1.73m2 LAURIE (test code = LAURIE) Association [...] or urine or abnormalities in imaging tests). [facility] P[facility] W WO [id number] 19:39:221. ?Diffuse bladder wall thickening is likely [...] reviewed this study and agree with theabove report.[facility] HospitalPOCT GLUCOSE (AUTOMATED) 2020-08-27 19:34:00* Test Item Value Reference Range Interpretation Comme nts POCT GLU (test code = 4904922443) 95 mg/dL 70-110 Lab Interpretation (test cod e = 45481-7) [facility] HospitalTROP[facility]IN [id number] 19:12:00* Test Item Value Reference Range Interpretation Comme nts TROPONIN I (test code = 8685151837) <0.012 See_Comment [Automated message] The system which [...] biotin. ? Lab Interpretation (test code = 20322-0) [facility]2020-08-27 14:42:00* Test Item Value Reference Range Interpretation Comme nts POCT GLU (test code = 4803730176) 99 mg/dL 70-110 Lab Interpretation (test cod e = 77730-5) [facility] [id number] 13:09:00* Test Item Value Reference Range Interpretation Comme nts TROPONIN I (test code = 2076649818) <0.012 See_Comment [Automated message] The system which [...] biotin. ? Lab Interpretation (test code = 87832-3) [facility] (32482)(TOTAL CHOLESTEROL, TRIGLYCERIDES, HDL)2020-08-27 08:31:00* Test Item Value Reference Range Interpretation Comme nts CHOL (test code = 8292107953) 208 mg/dL 120-200 H HDL (test code = 3888853836) 28 mg/dL >40 L HDLC RATIO (test code = 2667848023) See_Comment H [Automated [employer]] The system which generated this result transmitted reference range: <=5.0. The reference range was not used to interpret this result as normal/abnormal. TRIG (test code = 9263661310) 351 mg/dL 30-170 H LDL CHOL (test code = 76773-7) 110 mg/dL See_Comment [Automated [employer]] The system which generated this result transmitted reference range: <=160. The reference range was not used to interpret this result as normal/abnormal. VLDL (test code = 9204749112) 70 mg/dL 5-60 H Lab Interpretation (test code = 24512-7) [facility] [id number] 08:00:00 * Test Item Value Reference Range Interpretation Comme nts TSH (test code = 6635488722) See_Comment L Biotin has been reported to cause a negative bias, interpret results relative to patient's use of biotin. [Automated message] The system which generated this result transmitted reference range: 0.45 - 4.70 mIU/L. The reference range was not used to interpret this result as normal/abnormal. Lab Interpretation (test code = 01234-1) [facility] (ID NOW RAPID TESTING)2020-08-27 07:03:00* Test Item Value Reference Range Interpretation Comme nts SARS-CoV-2 Rapid ID NOW (test code = 11783-7) Not Detected Not Detected LAURIE (test code = LAURIE) ID NOW COVID-19 As say is an isothermal nucleic acid amplification test intended for the qualitative detection of nucleic acid from SARS-CoV-2 viral RNA in nasopharyngeal (DIRECTOR SERVICE) specimens. It is used under Emergency Use [...] clinically indicated. Lab Interpretation (test code = 57890-7) Normal [facility] / [facility] - DRUG SCREEN [id number] 06:58:00* Test Item Value Reference Range Interpretation Comme nts BENZO U (test code = 7341855906) Negative Negative HORACIO U (test code = 3066811502) Negative Negative AMPHET (test code = 6755960791) Negative Negative THC (test code = 9562766482) Negative Negative METHADONE (test code = 8823009112) Negative Negative Meth U (test code = 1276568694) Negative Negative OPIATES (test code = 7273013647) Negative Negative Cocaine Metabolite (test code = 5555965255) Negative Negative PROPOXY (test code = 3677168409) Negative Negative Tric U (test code = 7355182073) Negative Negative PCP (test code = 0289971507) Negative Negative OXYCOD (test code = 0506794257) Negative Negative LAURIE (test code = LAURIE) [...] legal testing). Lab Interpretation (test code = 65940-1) [facility]inalysis2020-11-08 06:51:00* Test Item Value Reference Range Interpretation Comme nts APPEARANCE (test code = 2071231023) Clear Clear COLOR (test code = 1843354208) Yellow Yellow PH (test code = 8929977064) 4.8-8.0 SP GRAVITY (test code = 4643739483) 1.003-1.030 GLU U QUAL (test code = 7219471906) Normal Normal BLOOD (test code = 9620186772) Negative Negative KETONES (test code = 3767793230) 20 mg/dL Negative A PROTEIN (test code = 2887-8) Negative Negative UROBILIN (test code = 1177542072) Normal Normal BILIRUBIN (test code = 3695204396) Negative Negative NITRITE (test code = 8090008345) Negative Negative LEUK KENNY (test code = 0538444782) Negative Negative RBC/HPF (test code = 8452816453) See_Comment [Automated [employer]] The system which generated this result transmitted reference range: 0 - 3 HPF. The reference range was not used to interpret this result as normal/abnormal. WBC/HPF (test code = 4244032864) See_Comment [Automated [employer]] The system which generated this result transmitted reference range: 0 - 5 HPF. The reference range was not used to interpret this result as normal/abnormal. BACTERIA (test code = 8858461926) Negative Negative MUCOUS (test code = 1275321400) Slight Negative LPF A Lab Interpretation (test code = 10597-0) [facility] HospitalTroponin [id number] 06:45:00* Test Item Value Reference Range Interpretation Comme nts TROPONIN I (test code = 5256632008) <0.012 See_Comment [Automated message] The system which [...] biotin. ? Lab Interpretation (test code = 09464-8) [facility] HospitalETHANOL2020-11-08 06:34:00* Test Item Value Reference Range Interpretation Comme nts ALCOHOL (test code = 4381291366) 14 mg/dL LAURIE (test code = LAURIE) <10 Hwdpskqc38-170 Toxic>100 Depression of LACEWORKER>400 [facility]ities [facility] HospitalBasic Metabolic Panel (NA, K, CL, CO2, GLUCOSE, BUN, CREATININE, CA)2020-08-27 06:33:00* Test Item Value Reference Range Interpretation Comme nts NA (test code = 3622941245) 137 mmol/L 135-145 K (test code = 7831603611) 3.6 mmol/L 3.5-5 CL (test code = 9739864566) 102 mmol/L 98-108 CO2 TOTAL (test code = 4061411201) 26 mmol/L 23-31 AGAP (test code = 4100577299) 2-16 BUN (test code = 0222327942) 13 mg/dL 7-23 GLUCOSE (test code = 2986411192) 119 mg/dL 70-110 H CREATININE (test code = 0677573752) 0.86 mg/dL 0.6-1.25 CALCIUM (test code = 3874770216) 9.8 mg/dL 8.6-10.6 eGFR Calculation (Non-) (test code = 4491254022) mL/min/1.73m2 eGFR Calculation () (test code = 9712842229) mL/min/1.73m2 LAURIE (test code = LAURIE) Association [...] imaging tests). Lab Interpretation (test code = 50360-2) [facility] HospitalHepatic Function Panel (ALB, T.PRO, BILI T, BU/BC, ALT, AST, ALK PHOS)2020-08-27 06:33:00* Test Item Value Reference Range Interpretation Comme nts TOTAL BILI (test code = 9234945683) 0.3 mg/dL 0.1-1.1 BILI UNCON (test code = 5469403658) 0.2 mg/dL 0.1-1.1 BILI CONJ (test code = 2845508355) 0.0 mg/dL 0-0.3 T PROTEIN (test code = 5682334757) 7.8 g/dL 6.3-8.2 ALBUMIN (test code = 7507015470) 4.5 g/dL 3.5-5 ALK PHOS (test code = 6121049474) 71 U/L 34-122 ALTv (test code = 1742-6) 26 U/L 5-50 AST(SGOT) (test code = 4006735578) 26 U/L 13-40 Lab Interpretation (test cod e = 25457-9) [facility] HospitalLipase [id number] 06:33:00* Test Item Value Reference Range Interpretation Comme [facility] LIPASE (test code = 5480176095) 77 U/L 0-220 Lab Interpretation (test cod e = 79628-2) [facility] HospitalaPTT2020-11-08 06:19:00* Test Item Value Reference Range Interpretation Comme [facility] APTT Patient (test code = 3173-2) See_Comment [Automated message] The system which generated this result transmitted reference range: 23 - 38 Seconds. The reference range was not used to interpret this result as normal/abnormal. LAURIE (test code = LAURIE) The [facility] patient population mean normal value for aPTT is 30 seconds. Lab Interpretation (test code = 81107-3) [facility] HospitalProthrombin Time (PT) / [id number] 06:17:00 * Test Item Value Reference Range Interpretation Comme [facility] PROTIME PATIENT (test code = 5964-2) See_Comment [Automated [employer]] The system which generated this result transmitted reference range: 12.0 - 14.7 Seconds. The reference range was not used to interpret this result as normal/abnormal. INR (test code = 6301-6) Normal INR <1.1; Warfarin Therapeutic range 2.0 to 3.0 or 2.5 to 3.5, depending upon the indications. Lab Interpretation (test code = 64533-6) Normal [facility] with [id number] 06:07:00* Test Item Value Reference Range Interpretation [...] 32.8 g/dL 31.2-35 RDW-SD (test code = 48237-5) 42.9 fL 38.5-51.6 RDW-CV (test code = 788-0) 12.7 % 12.1-15.4 PLT (test code = 777-3) See_Comment [Automated messa ge] The system which generated this result transmitted reference range: 150 - 328 10*3/?L. The reference range was not used to interpret this result as normal/abnormal. MPV (test code = 19597-3) 9.1 fL 9.8-13 L NRBC/100 WBC (test code = 2481064382) See_Comment [Automated [employer] ssage] The system which generated this result transmitted reference range: 0.0 - 10.0 /100 WBCs. The reference range was not used to interpret this result as normal/abnormal. NRBC x10^3 (test code = 2828411610) <0.01 See_Comment [Automated messa ge] The system which generated this result transmitted reference range: 10*3/?L. The reference range was not used to interpret this result as normal/abnormal. GRAN MAT (NEUT) % (test code = 770-8) 52.4 % IMM GRAN % (test code = 1638072136) 0.50 % LYMPH % (test code = 736-9) 37.8 % MONO % (test code = 5905-5) 6.2 % EOS % (test code = 713-8) 2.3 % BASO % (test code = 706-2) 0.8 % GRAN MAT x10^3(ANC) (test code = 1796104078) 4.33 10*3/uL 1.99-6.95 IMM GRAN x10^3 (test code = 4458676951) 0.04 10*3/uL 0-0.06 LYMPH x10^3 (test code = 731-0) 3.13 10*3/uL 1.09-3.23 MONO x10^3 (test code = 742-7) 0.51 10*3/uL 0.36-1.02 EOS x10^3 (test code = 711-2) 0.19 10*3/uL 0.06-0.53 BASO x10^3 (test code = 704-7) 0.07 10*3/uL 0.01-0.09 Lab Interpretation (test code = 43185-5) Abnormal [facility] [id number] 04:41:00* Test Item Value Reference Range Interpretation Comme nts TROPONIN I (test code = 8015471372) 0.000 ng/mL See_Comment [Automated message] The system [...] biotin. ? Lab Interpretation (test code = 58998-8) Normal [facility] / [facility] - DRUG SCREEN [id number] 03:46:00* Test Item Value Reference Range Interpretation Comme nts BENZO U (test code = 4557514340) Negative Negative HORACIO U (test code = 9507929616) Negative Negative AMPHET (test code = 2575745687) Negative Negative THC (test code = 4166049607) Negative Negative METHADONE (test code = 7952811220) Negative Negative Meth U (test code = 6821829445) Negative Negative OPIATES (test code = 1466802737) Presumptive Positive Negative A Cocaine Metabolite (test code = 8172611698) Negative Negative PROPOXY (test code = 5423456794) Negative Negative Tric U (test code = 1136634870) Negative Negative PCP (test code = 4519152952) Negative Negative OXYCOD (test code = 1555887024) Negative Negative LAURIE (test code = LAURIE) [...] legal testing). Lab Interpretation (test code = 44439-4) [facility] HospitalD-[id number] 03:29:00* Test Item Value Reference Range Interpretation Comments D-DIMER (test code = 0492987687) <0.27 See_Comment [Automated message] The system which [...] a diagnosis. Lab Interpretation (test code = 45169-2) [facility] HospitalLIPASE2020-09-21 02:07:00* Test Item Value Reference Range Interpretation Comme nts LIPASE (test code = 8183086555) 58 U/L 0-220 Lab Interpretation (test cod e = 64197-1) [facility] HospitalXR CHEST 1 [id number] 01:44:02No acute cardiopulmonary abnormality. Preliminary Report Dictated [...] reviewed this study and agree with theabove report.[facility] TROPONIN [id number] 01:40:00* Test Item Value Reference Range Interpretation Comme [facility] TROPONIN I (test code = 3859098905) 0.000 ng/mL See_Comment [Automated message] The system [...] biotin. ? Lab Interpretation (test code = 51001-7) [facility] HospitalPROTHROMBIN TIME / [id number] 01:39:00* Test Item Value Reference Range Interpretation Comme [facility] PROTIME PATIENT (test code = 5964-2) See_Comment [Automated messa ge] The system which generated this result transmitted reference range: 12.0 - 14.7 Seconds. The reference range was not used to interpret this result as normal/abnormal. INR (test code = 6301-6) Normal INR <1.1; Warfarin Therapeutic range 2.0 to 3.0 or 2.5 to 3.5, depending upon the indications. Lab Interpretation (test code = 90960-0) [facility] HospitalCOVID-19 (ID NOW RAPID TESTING)2020-07-10 01:36:00* Test Item Value Reference Range Interpretation Comme nts SARS-CoV-2 Rapid ID NOW (test code = 96056-0) Not Detected Not Detected LAURIE (test code = LAURIE) ID NOW COVID-19 As say is an isothermal nucleic acid amplification test intended for the qualitative detection of nucleic acid from SARS-CoV-2 viral RNA in nasopharyngeal (DIRECTOR SERVICE) specimens. It is used under Emergency Use [...] clinically indicated. Lab Interpretation (test code = 69973-2) Normal [facility]. METABOLIC PANEL (53374)2020-07-10 01:29:00* Test Item Value Reference Range Interpretation Comme nts NA (test code = 3169021663) 136 mmol/L 135-145 K (test code = 1114875920) 3.4 mmol/L 3.5-5 L CL (test code = 5338173934) 98 mmol/L 98-108 CO2 TOTAL (test code = 0370065661) 26 mmol/L 23-31 AGAP (test code = 2454381076) 2-16 BUN (test code = 3306151790) 16 mg/dL 7-23 GLUCOSE (test code = 8000930570) 165 mg/dL 70-110 H CREATININE (test code = 7729686587) 0.94 mg/dL 0.6-1.25 TOTAL BILI (test code = 9143507050) 0.4 mg/dL 0.1-1.1 CALCIUM (test code = 1975198737) 9.7 mg/dL 8.6-10.6 T PROTEIN (test code = 9046546806) 8.2 g/dL 6.3-8.2 ALBUMIN (test code = 5780777467) 4.4 g/dL 3.5-5 ALK PHOS (test code = 5880557099) 77 U/L 34-122 ALTv (test code = 1742-6) 31 U/L 5-50 AST(SGOT) (test code = 7144810252) 26 U/L 13-40 eGFR Calculation (Non-) (test code = 3437790510) mL/min/1.73m2 eGFR Calculation () (test code = 2158962422) mL/min/1.73m2 LAURIE (test code = LAURIE) Association [...] imaging tests). Lab Interpretation (test code = 00130-2) Abnormal [facility] WITH [id number] 01:11:00* Test Item Value Reference Range Interpretation [...] 34.0 g/dL 31.2-35 RDW-SD (test code = 12214-2) 42.6 fL 38.5-51.6 RDW-CV (test code = 788-0) 13.0 % 12.1-15.4 PLT (test code = 777-3) See_Comment [Automated messa ge] The system which generated this result transmitted reference range: 150 - 328 10*3/?L. The reference range was not used to interpret this result as normal/abnormal. MPV (test code = 28821-2) 9.5 fL 9.8-13 L NRBC/100 WBC (test code = 8282910346) See_Comment [Automated [employer] ssage] The system which generated this result transmitted reference range: 0.0 - 10.0 /100 WBCs. The reference range was not used to interpret this result as normal/abnormal. NRBC x10^3 (test code = 3056362881) <0.01 See_Comment [Automated messa ge] The system which generated this result transmitted reference range: 10*3/?L. The reference range was not used to interpret this result as normal/abnormal. GRAN MAT (NEUT) % (test code = 770-8) 65.5 % IMM GRAN % (test code = 4638810942) 0.70 % LYMPH % (test code = 736-9) 26.1 % MONO % (test code = 5905-5) 5.7 % EOS % (test code = 713-8) 1.2 % BASO % (test code = 706-2) 0.8 % GRAN MAT x10^3(ANC) (test code = 2734173916) 6.62 10*3/uL 1.99-6.95 IMM GRAN x10^3 (test code = 2041505245) 0.07 10*3/uL 0-0.06 H LYMPH x10^3 (test code = 731-0) 2.64 10*3/uL 1.09-3.23 MONO x10^3 (test code = 742-7) 0.58 10*3/uL 0.36-1.02 EOS x10^3 (test code = 711-2) 0.12 10*3/uL 0.06-0.53 BASO x10^3 (test code = 704-7) 0.08 10*3/uL 0.01-0.09 Lab Interpretation (test code = 66062-5) [facility]
[2024-10-11] MEDS ORDERED: ASPIRIN 81 MG CHEWABLE TABLET ONE (20:51)
[2024-10-11 21:00] LABS: Absolute Basophils 0.1 K/uL (0-0.5); Absolute Eosinophils 0.2 K/uL (0-0.5); Absolute Lymphocytes (CBC) 2.5 K/uL (0.7-4.9); Absolute Monocytes 0.6 K/uL (0.1-1.3); Absolute Neutrophil 4.6 K/uL (1.8-8.0); Basophils % 0.6 % (0-1.3); Eosinophils % 2.9 % (0-4.4); Hematocrit 42.6 % (39.6-49.0); Hemoglobin 14.4 g/dL (13.6-17.9); Lymphocytes % 31.3 % (15.3-44.8); MCH 31.4 pg (27.0-35.0); MCHC 33.9 g/dL (32.0-36.0); MCV 92.6 fL (80-100); MPV 7.6 fL (7.6-11.3); Monocytes % 7.5 % (3.3-12.3); Neutrophils % 57.7 % (41.7-73.7); Platelets 284 thou/uL (152-406); RBC Red Blood Cell Count 4.61 M/uL (4.33-5.43); Red Cell Distribution Width 13.4 % (12.1-15.2)
--- NOTE | 2024-10-11 21:10 | RAD REPORT ---
Procedure: Chest Single View HISTORY: Cough COMPARISON: September 20, 2024 FINDINGS: The lungs appear clear of acute infiltrate. No significant pleural effusion noted. The heart is normal size. IMPRESSION: No acute abnormality is displayed.
[2024-10-11 21:20] LABS: ALT/SGPT 26 U/L (16-61); AST/SGOT 14 U/L (15-37); Albumin 3.6 g/dL (3.4-5.0); Albumin/Globulin Ratio 0.9 (1.1-1.8); Alkaline Phosphatase 90 U/L (45-117); Anion Gap 9.7 mEq/L (5.0-15.0); BUN Blood Urea Nitrogen 16 mg/dL (7-18); Bicarbonate 25 mEq/L (21-32); Bilirubin Direct < 0.2 mg/dL (0-0.2); Bilirubin Total < 0.2 mg/dL (0.2-1.0); Globulin 4.1 g/dL (2.3-3.5); Glomerular Filtration Rate 106 ml/min (=/>90); Glucose Level 130 mg/dL (74-106); NT PRO-BNP 60 pg/mL (<125); Potassium 3.7 mEq/L (3.5-5.1); Protein, Total 7.7 g/dL (6.4-8.2); Sodium Level 138 mEq/L (136-145)
[2024-10-11] MEDS ORDERED: MORPHINE 4 MG/ML SYR ONE ×2 (21:26→23:37)
[2024-10-11] MEDS ORDERED: ONDANSETRON 4 MG/2 ML VIAL ONE (21:26)
--- NOTE | 2024-10-11 21:33 | ER ---
Nurse's Notes [facility] Name: Carrington Dumont Age: 49 yrs Sex: Male : 1975 Arrival Date: 10/11/2024 Time: 20:06 Bed 2 Private MD: Diagnosis: Chest pain, unspecified Presentation: 10/11 20:12 Chief complaint: Intermittent left sided chest pain that started this morning. Recent hb stent placement by Dr. Franks. Coronavirus screen: At this time, the client does not indicate any symptoms associated with coronavirus-19. Ebola Screen: No symptoms or risks identified at this time. Initial Sepsis Screen: Does the patient meet any 2 criteria? No. Patient's initial sepsis screen is negative. Does the patient have a suspected source of infection? No. Patient's initial sepsis screen is negative. Risk Assessment: Do you want to hurt yourself or someone else? Patient reports no desire to harm self or others. Onset of symptoms was October 11, 2024. 20:12 Method Of Arrival: Ambulatory hb 20:12 Acuity: DAYANNA 2 hb Historical: - Allergies: 20:23 PENICILLINS; hb - Home Meds: 20:23 enalapril maleate 10 mg Oral tab 1 tab once daily [Active]; levothyroxine 125 mcg tab 1 hb tab once daily [Active]; - PMHx: 20:23 Hypertension; Hypothyroidism; coronary atherosclerosis; hb - PSHx: 20:23 Cholecystectomy; Stented artery; hb - Immunization history:: Adult Immunizations up to date. - Infectious Disease History:: Denies. - Social history:: Smoking status: Patient reports the use of cigarette tobacco products. Screenin:40 [facility] ED Fall Risk Assessment (Adult) History of falling in the last 3 months, al5 including since admission No falls in past 3 months (0 pts) Confusion or Disorientation No (0 pts) Intoxicated or Sedated No (0 pts) Impaired Gait No (0 pts) Mobility Assist Device Used No (0 pt) Altered Elimination No (0 pt) Score/Fall Risk Level 0 - 2 = Low Risk Oriented to surroundings, Maintained a safe environment, Hourly rounding (assess needs \T\ fall precautionary measures) done. Abuse screen: Denies threats or abuse. Denies injuries from another. Nutritional screening: No deficits noted. Tuberculosis screening: No symptoms or risk factors identified. Assessment: 20:42 General: Appears in no apparent distress. uncomfortable, Behavior is calm, cooperative. al5 Pain: Complains of pain in chest Pain does not radiate. Pain currently is 8 out of 10 on a pain scale. Pain began today. Neuro: Level of Consciousness is awake, alert, obeys commands, Oriented to person, place, time, situation. Cardiovascular: Capillary refill < 3 seconds Patient's skin is warm and dry. Rhythm is sinus rhythm. Respiratory: Airway is patent Respiratory effort is even, unlabored, Respiratory pattern is regular, symmetrical. GI: Abdomen is non-distended, obese. : No signs and/or symptoms were reported regarding the genitourinary system. EENT: No signs and/or symptoms were reported regarding the EENT system. Derm: Skin is intact, is healthy with good turgor, Skin is pink, warm \T\ dry. normal. Musculoskeletal: No signs and/or symptoms reported regarding the musculoskeletal system. 21:30 Reassessment: Patient appears in no apparent distress at this time. No changes from al5 previously documented assessment. Patient and/or family updated on plan of care and expected duration. Pain level reassessed. Patient is alert, oriented x 3, equal unlabored respirations, skin warm/dry/pink. 22:56 Reassessment: Patient appears in no apparent distress at this time. No changes from al5 previously documented assessment. Patient and/or family updated on plan of care and expected duration. Pain level reassessed. Patient is alert, oriented x 3, equal unlabored respirations, skin warm/dry/pink. 23:39 Reassessment: Patient appears in no apparent distress at this time. No changes from al5 previously documented assessment. Patient and/or family updated on plan of care and expected duration. Pain level reassessed. Patient is alert, oriented x 3, equal unlabored respirations, skin warm/dry/pink. 10/12 01:10 Reassessment: Patient appears in no apparent distress at this time. No changes from al5 previously documented assessment. Patient and/or family updated on plan of care and expected duration. Pain level reassessed. Patient is alert, oriented x 3, equal unlabored respirations, skin warm/dry/pink. 02:06 Reassessment: Patient appears in no apparent distress at this time. No changes from al5 previously documented assessment. Patient and/or family updated on plan of care and expected duration. Pain level reassessed. Patient is alert, oriented x 3, equal unlabored respirations, skin warm/dry/pink. Vital Signs: 10/11 20:12 BP 155 / 100; Pulse 88; Resp 16; Temp 98.1; Pulse Ox 100% ; Pain 8/10; hb 20:15 BP 179 / 87; Pulse 89; Resp 21; Pulse Ox 98% on R/A; al5 20:30 BP 141 / 92; Pulse 86; Resp 19; Pulse Ox 96% on R/A; al5 20:45 BP 154 / 88; Pulse 86; Resp 18; Pulse Ox 97% on R/A; al5 21:51 BP 152 / 98; Pulse 81; Resp 16; Pulse Ox 98% ; Pain 8/10; jj7 21:52 Pain 8/10; jj7 22:00 BP 182 / 109; Pulse 79; Resp 20; Pulse Ox 96% on R/A; al5 22:30 BP 135 / 102; Pulse 82; Resp 21; Pulse Ox 96% on R/A; al5 23:00 BP 150 / 78; Pulse 79; Resp 19; Pulse Ox 94% on R/A; al5 23:15 BP 151 / 104; Pulse 81; Resp 16; Pulse Ox 96% on R/A; al5 23:36 BP 137 / 85; Pulse 78; Resp 16; Pulse Ox 99% on R/A; al5 23:45 BP 136 / 82; Pulse 73; Resp 22; Pulse Ox 94% on R/A; al5 10/12 00:00 BP 139 / 69; Pulse 71; Resp 19; Pulse Ox 94% on R/A; al5 00:30 BP 131 / 71; Pulse 70; Resp 18; Pulse Ox 94% on R/A; al5 01:00 BP 130 / 55; Pulse 72; Resp 18; Pulse Ox 95% on R/A; al5 01:10 BP 130 / 55; Pulse 73; Resp 20; Pulse Ox 96% on R/A; ay 01:30 BP 123 / 72; Pulse 72; Resp 20; Pulse Ox 95% on R/A; al5 02:00 BP 128 / 67; Pulse 76; Resp 20; Pulse Ox 96% on R/A; al5 10/11 20:12 Pain Scale: Adult hb 21:51 Pain Scale: Adult jj7 21:52 Pain Scale: Adult jj7 ED Course: 10/11 20:08 Patient arrived in ED. im 20:10 Yue Bishop FNP-C is PHCP. kb 20:10 Robb Cox MD is Attending Physician. kb 20:17 EKG done, by ED staff, reviewed by Yue KAUR. hb 20:20 Client placed on continuous cardiac and pulse oximetry monitoring. NIBP monitoring hb applied. youth nutritional monitor on. Pulse ox on. NIBP on. 20:22 Cynthia Lord, RN is Primary Nurse. al5 20:23 Triage completed. hb 20:40 Missed attempt(s): 20 gauge in right antecubital area. Bleeding controlled, band aid al5 applied, catheter tip intact. 20:40 No provider procedures requiring assistance completed. Missed attempt(s): 20 gauge in al5 right antecubital area. Bleeding controlled, band aid applied, catheter tip intact. 20:43 Patient maintains SpO2 saturation greater than 95% on room air. al5 20:43 Arm band placed on right wrist. Patient placed in the treatment room, on a stretcher, al5 on radiation monitor, on pulse oximetry. 20:43 Patient has correct armband on for positive identification. Bed in low position. Call al5 light in reach. Side rails up X 1. Provided Education on: plan of care. 20:45 Inserted saline lock: 20 gauge in left antecubital area, using aseptic technique. Blood jj7 collected. Flushed with 10 mL NS. 20:48 Basic Metabolic Panel Sent. jj7 20:48 CBC with Diff Sent. jj7 20:48 LFT's Sent. jj7 20:48 Magnesium Sent. jj7 20:48 NT PRO-BNP Sent. jj7 20:48 Troponin HS Sent. jj7 21:03 XRAY Chest (1 view) In Process Unspecified. EDMS 21:32 Antonio Cox MD is Hospitalizing Provider. kb 23:25 Patient admitted, IV remains in place. al5 Administered Medications: 20:52 Drug: Aspirin PO Chewable Tablet 324 mg PO once; 81 mg tablets x 4 Route: PO; jj7 21:29 Follow up: Response: No adverse reaction jj7 21:29 Drug: morphine IVP or IV 4 mg IVP once over 4 mins Route: IVP; Infused Over: 4 mins; jj7 Site: left antecubital; 21:52 Follow up: Pain 8/10 Adult; Response: Pain is decreased j7 21:29 Drug: Ondansetron IVP 4 mg IVP once; over 2 minutes Route: IVP; Site: left antecubital; jj7 21:52 Follow up: Response: No adverse reaction jj7 Medication: 20:42 VIS not applicable for this client. al5 Outcome: 21:33 Decision to Hospitalize by Provider. 10/12 02:12 Admitted to Med/surg accompanied by nurse, via stretcher, room 405, with chart, Other al5 with pump and channel x1 Condition: stable Instructed on the need for admit, 02:14 Patient left the ED. al5 Signatures: Dispatcher [employer] EDYue Ward, Alma Harding RN RN hb Johnson, Juwairiyah, RN RN jjSharon Flaherty Amanda, RN RN al5 Brigitte Douglas RN VIOLET ay Corrections: (The following items were deleted from the chart) 10/11 20:20 20:20 EKG done, by ED staff, reviewed by Yue brink
--- NOTE | 2024-10-11 21:33 | EDPHYS ---
Physician Documentation [facility] Name: Carrington Dumont Age: 49 yrs Sex: Male : 1975 Arrival Date: 10/11/2024 Time: 20:06 Bed 2 Private MD: ED Physician Robb Cox HPI: 10/11 20:52 This 49 yrs old Male presents to ER via Ambulatory with complaints of Chest kb Pain. 20:52 Pt is a 49 year old male who presents for chest tightness and shortness of breath that kb started this morning. States the pain got worse and worse until lunchtime when it stopped, but has been intermittent since then. States he had a stent placed by Dr Franks 3 weeks ago. . Historical: - Allergies: 20:23 PENICILLINS; hb - Home Meds: 20:23 enalapril maleate 10 mg Oral tab 1 tab once daily [Active]; levothyroxine 125 mcg tab 1 hb tab once daily [Active]; - PMHx: 20:23 Hypertension; Hypothyroidism; coronary atherosclerosis; hb - PSHx: 20:23 Cholecystectomy; Stented artery; hb - Immunization history:: Adult Immunizations up to date. - Infectious Disease History:: Denies. - Social history:: Smoking status: Patient reports the use of cigarette tobacco products. ROS: 20:52 Constitutional: As per HPI kb Exam: 20:26 Constitutional: This is a well developed, well nourished patient who is awake, alert, kb and in no acute distress. Head/Face: Normocephalic, atraumatic. ENT: Moist Mucous membranes Cardiovascular: Regular rate Respiratory: Respirations even and unlabored. No increased work of breathing. Talking in full sentences Abdomen/GI: Soft, non-tender. No distention Skin: Warm, dry with normal turgor. Normal color. MS/ Extremity: Pulses equal, no cyanosis. Neurovascular intact. Full, normal range of motion. Neuro: Awake and alert, GCS 15, oriented to person, place, time, and situation. 20:26 ECG was reviewed by the Attending Physician. Vital Signs: 20:12 BP 155 / 100; Pulse 88; Resp 16; Temp 98.1; Pulse Ox 100% ; Pain 8/10; hb 20:15 BP 179 / 87; Pulse 89; Resp 21; Pulse Ox 98% on R/A; al5 20:30 BP 141 / 92; Pulse 86; Resp 19; Pulse Ox 96% on R/A; al5 20:45 BP 154 / 88; Pulse 86; Resp 18; Pulse Ox 97% on R/A; al5 21:51 BP 152 / 98; Pulse 81; Resp 16; Pulse Ox 98% ; Pain 8/10; jj7 21:52 Pain 8/10; jj7 22:00 BP 182 / 109; Pulse 79; Resp 20; Pulse Ox 96% on R/A; al5 22:30 BP 135 / 102; Pulse 82; Resp 21; Pulse Ox 96% on R/A; al5 23:00 BP 150 / 78; Pulse 79; Resp 19; Pulse Ox 94% on R/A; al5 23:15 BP 151 / 104; Pulse 81; Resp 16; Pulse Ox 96% on R/A; al5 23:36 BP 137 / 85; Pulse 78; Resp 16; Pulse Ox 99% on R/A; al5 23:45 BP 136 / 82; Pulse 73; Resp 22; Pulse Ox 94% on R/A; al5 10/12 00:00 BP 139 / 69; Pulse 71; Resp 19; Pulse Ox 94% on R/A; al5 00:30 BP 131 / 71; Pulse 70; Resp 18; Pulse Ox 94% on R/A; al5 01:00 BP 130 / 55; Pulse 72; Resp 18; Pulse Ox 95% on R/A; al5 01:10 BP 130 / 55; Pulse 73; Resp 20; Pulse Ox 96% on R/A; ay 01:30 BP 123 / 72; Pulse 72; Resp 20; Pulse Ox 95% on R/A; al5 02:00 BP 128 / 67; Pulse 76; Resp 20; Pulse Ox 96% on R/A; al5 10/11 20:12 Pain Scale: Adult hb 21:51 Pain Scale: Adult jj7 21:52 Pain Scale: Adult jj7 MDM: 10/11 20:10 Medical Screening Exam initiated kb 20:52 Data reviewed: vital signs, nurses notes. karen 21:31 Differential diagnosis: arrhythmia, acute mi. Consideration of Admission/Observation kb Patient was admitted/placed on observation. Escalation of care including admission/observation considered. Management of patient was discussed with the following: Hospitalist: Glendy accepts pt for admission under Dr Cox. Soda Column Operator: Dr Franks accepts pt for admission. Care significantly affected by the following chronic conditions: Hypertension, previous stent placement, high cholesterol. Counseling: I had a detailed discussion with the patient and/or guardian regarding the historical points, exam findings, and any diagnostic results supporting the discharge/admit diagnosis, lab results, radiology results, the need for further work-up and treatment in the hospital. 10/11 20:17 Order name: Basic Metabolic Panel; Complete Time: 21:25 kb 10/11 20:17 Order name: CBC with Diff; Complete Time: 21:02 kb 10/11 20:17 Order name: LFT's; Complete Time: 21:25 kb 10/11 20:17 Order name: Magnesium; Complete Time: 21:25 kb 10/11 20:17 Order name: NT PRO-BNP; Complete Time: 21:25 kb 10/11 20:17 Order name: Troponin HS; Complete Time: 21:25 kb 10/11 22:23 Order name: Urinalysis w/ reflexes EDMI 10/11 22:23 Order name: Lipid Profile EDMI 10/11 22:23 Order name: Lipid Profile EDMI 10/11 22:23 Order name: Troponin High Sensitivity EDMI 10/11 22:23 Order name: Troponin High Sensitivity EDMI 10/11 22:23 Order name: Troponin High Sensitivity EDMI 10/11 22:23 Order name: Troponin High Sensitivity EDMI 10/11 22:23 Order name: CBC with Automated Diff EDMI 10/11 22:23 Order name: Comprehensive Metabolic Panel EDMI 10/11 22:23 Order name: Magnesium EDMI 10/11 22:23 Order name: Phosphorus EDMI 10/11 22:23 Order name: Thyroid Stimulating Hormone EDMI 10/11 20:17 Order name: XRAY Chest (1 view); Complete Time: 21:11 kb 10/11 22:19 Order name: Echo with Doppler EDMI 10/11 20:17 Order name: EKG; Complete Time: 20:18 kb 10/11 22:23 Order name: CONS Physician Consult EDMI 10/11 20:17 Order name: Cardiac monitoring; Complete Time: 20:20 kb 10/11 20:17 Order name: EKG - Nurse/Tech; Complete Time: 20:20 kb 10/11 20:17 Order name: IV Saline Lock; Complete Time: 20:48 kb 10/11 20:17 Order name: Labs collected and sent; Complete Time: 20:48 kb 10/11 20:17 Order name: O2 Per Protocol; Complete Time: 20:20 kb 10/11 20:17 Order name: O2 Sat Monitoring; Complete Time: 20:20 kb EC: Rate is 90 beats/min. Rhythm is regular. QRS [place] is Normal. GA interval is normal at kb 116 msec. QRS interval is normal at 90 msec. QT interval is normal at 440 msec. Administered Medications: 20:52 Drug: Aspirin PO Chewable Tablet 324 mg PO once; 81 mg tablets x 4 Route: PO; jj7 21:29 Follow up: Response: No adverse reaction jj7 21:29 Drug: morphine IVP or IV 4 mg IVP once over 4 mins Route: IVP; Infused Over: 4 mins; jj7 Site: left antecubital; 21:52 Follow up: Pain 8/10 Adult; Response: Pain is decreased jj7 21:29 Drug: Ondansetron IVP 4 mg IVP once; over 2 minutes Route: IVP; Site: left antecubital; jj7 21:52 Follow up: Response: No adverse reaction jj7 Disposition: 10/12 04:24 Co-signature as Attending Physician, Robb Cox MD I reviewed the patient's care rn provided by the Advanced Practice Provider and agree with the diagnosis and treatment plan. Disposition Summary: 10/11/24 21:33 Hospitalization Ordered Notes: Hospitalization Status: Observation kb Provider: Antonio Cox Location: Telemetry/MedSurg (observation) kb Condition: Stable kb Problem: new kb Symptoms: are unchanged kb Bed/Room Type: Standard Room Assignment: 405(10/12/24 00:59) rv1 Diagnosis - Chest pain, unspecified kb Forms: - Medication Reconciliation Form kb - SBAR form kb - Leadership Thank You Letter kb Signatures: Dispatcher [employer] Yue Kirby, TERESAC CLASSIFICATION CLERK-Robb Graham MD MD rn Baxter, Heather, RN RN hb Johnson, Juwairiyah, RN RN jjGiovanna Peña rv1 Corrections: (The following items were deleted from the chart) 10/11 20:18 20:18 BASIC METABOLIC PANEL+C.LAB.BRZ ordered. EDMS EDMS 20:18 20:18 CBC+H.LAB.BRZ ordered. EDMS EDMS 20:18 20:18 HEPATIC FUNCTION+C.LAB.BRZ ordered. EDMS EDMS 20:18 20:18 MAGNESIUM+C.LAB.BRZ ordered. EDMS EDMS 20:18 20:18 PROBNP+C.LAB.BRZ ordered. EDMS EDMS 20:18 20:18 Troponin High Sensitivity+C.LAB.BRZ ordered. EDMS EDMS 10/12 00:59 10/11 21:33 kb rv1
[2024-10-11] MEDS ORDERED: NITROGLYCERIN 0.4 MG/TAB SL PRN (22:15)
--- NOTE | 2024-10-11 22:29 | P.HP ---
Certification for Inpatient With expected LOS: <2 Midnights <Glendy Boo - Last Filed: 10/11/24 22:23> Patient History Date of Service: 10/11/24 Reason for admission: Chest pain History of Present Illness: 49-year-old man with a past medical history significant for HTN, HDL, hypothyroidism, obesity, and CAD s/p stenting presented to the emergency department complaining of chest pain that began earlier today. The patient barbara cribes his chest pain as substernal, without radiation, and of an aching quality. Also, the patient states he has felt " more sweaty" today. He is an everyday smoker, and reports smoking a pack a week. The patient states he had heart stents placed earlier this month for his chest pain, but states he feels his chest pain is worse today. The patient has not attempted anything to alleviate his chest pain and states nothing worsens. He denies cough, dyspnea, and urinary symptoms. Home medications list reviewed: Yes - Past Medical/Surgical History Diabetic: Yes -: HDL -: HTN -: HYPOTHYROIDISM -: GA, PCI, 02/10 -: RAMIRO -: PCI - Family History Mother -: Hypertension Father -: Hypertension, Diabetes - Social History Smoking Status: Current every day smoker (Pack a week) Alcohol use: No CD- Drugs: No Caffeine use: Yes <Glendy Boo - Last Filed: 10/11/24 22:23> Date of Service: 10/12/24 <Antonio Cox - Last Filed: 10/12/24 10:52> Allergies Penicillins Allergy (Intermediate, Verified 03/10/24 01:47) Hives/Rash Home Medications: Levothyroxine Sodium [Synthroid] 1 tab PO DAILY 02/05/24 Aspirin Chewable [Aspirin Chewable*] 81 mg PO DAILY #30 tab.chew 02/07/24 Clopidogrel Bisulfate [Plavix] 75 mg PO DAILY 05/30/24 Isosorbide Mononitrate [Isosorbide Mononitrate ER] 30 mg PO DAILY 30 Days #30 tab 09/24/24 Metoprolol Tartrate 1 tab PO BID 10/12/24 Review of Systems General: Sweats (Today) Cardiovascular: Chest Pain (Today) <Glendy Boo - Last Filed: 12/23/24 22:23> Physical Examination - Vital Signs Temperature: 98.2 F Blood Pressure: 168/121 Pulse: 85 Respirations: 18 Pulse Ox (%): 97 (On room air) - Physical Exam General: Alert, Oriented x3, Mild distress HEENT: Atraumatic, Normocephalic Neck: JVD not distended Respiratory: Clear to auscultation bilaterally Cardiovascular: No edema, Regular rate/rhythm, No gallops, No rubs, No murmurs Gastrointestinal: Normal bowel sounds, Non-distended, No tenderness Musculoskeletal: No swelling, No erythema, No tenderness, No warmth Neurological: Normal speech, Normal strength at 5/5 x4 extr, Sensation intact - Studies Laboratory Data (last 24 hrs) 10/11/24 10/11/24 20:47 20:47 WBC 7.90 Hgb 14.4 Hct 42.6 Plt Count 284 Sodium 138 Potassium 3.7 BUN 16 Creatinine 0.90 Glucose 130 H Magnesium 2.0 Total Bilirubin < 0.2 L AST 14 L ALT 26 Alkaline Phosphatase 90 <Glendy Boo - Last Filed: 10/11/24 22:23> - Studies Laboratory Data (last 24 hrs) 10/11/24 10/11/24 20:47 20:47 WBC 7.90 Hgb 14.4 Hct 42.6 Plt Count 284 Sodium 138 Potassium 3.7 BUN 16 Creatinine 0.90 Glucose 130 H Magnesium 2.0 Total Bilirubin < 0.2 L AST 14 L ALT 26 Alkaline Phosphatase 90 <Antonio Cox - Last Filed: 10/12/24 10:52> Assessment and Plan - Problems (Diagnosis) (1) CAD (coronary artery disease) Current Visit: Yes Status: Acute (2) Chest pain Current Visit: No Status: Acute (3) HTN (hypertension) Current Visit: No Status: Acute (4) HLD (hyperlipidemia) Current Visit: No Status: Acute (5) Hypothyroidism Current Visit: Yes Status: Acute (6) Encounter for smoking cessation counseling Current Visit: Yes Status: Acute - Plan Chest pain: Admit to floor Cardiology consulted Echocardiogram ordered Telemetry ordered Troponin ordered to trend Other lab work ordered to trend Nitroglycerin and morphine for pain CXR revealed no abnormality CAD: 09/23/24-left heart catheterization, PCI on OM 2 with Synergy stent performed Continue with ASA, Plavix, and statin HTN: One-time dose of metoprolol ordered Will resume home medications in early a.m. HDL: Resumed home medication Hypothyroidism: Resumed home medication Smoking cessation: The patient has been counseled on the importance of smoking cessation. He voiced understanding, and all his questions were answered to his satisfaction - Advance Directives Does patient have a Living Will: No Does patient have a Durable POA for Healthcare: No <Glendy Boo - Last Filed: 10/11/24 22:23> - Plan DOS (10/11/24) Discussed case with ROSAMARIA Boo and independently reviewed EMR at time of admission Agree with plan of care as noted above. chest pain began earlier today. h/o recent PCI on 09/23/24. trop mildly elevated. Reportedly no ekg changes (unavailable to me remotely) vitals WNL/stable. cardio consult. continue DAPT/statin/beta rupert. recent cath noted diffuse disease, with concern further intervention may be required trend trop, low threshold for anticoagulation, chest pain somewhat atypical from report. <Antonio Cox - Last Filed: 10/12/24 10:52>
[2024-10-11] MEDS: NA CHLORIDE 0.9% 1,000 ML IV SCH (23:00)
[2024-10-11] MEDS: METOPROLOL TARTRATE 5 MG/5 ML INJ IV STA (23:36)
[2024-10-11] MEDS ORDERED: NA CHLORIDE 0.9% 1,000 ML ONE (23:38)
[2024-10-11] MEDS ORDERED: METOPROLOL TARTRATE 5 MG/5 ML INJ IV ONE (23:38)
[2024-10-11] MEDS: MORPHINE 4 MG/ML SYR IV PRN (23:50)
[2024-10-12 02:18] VITALS: BMI 38.0
[2024-10-12] MEDS: ACETAMINOPHEN 325 MG TABLET PO PRN (03:43)
[2024-10-12 06:13] LABS: Absolute Eosinophils 0.3 K/uL (0-0.5); Absolute Lymphocytes (CBC) 2.4 K/uL (0.7-4.9); Absolute Monocytes 0.6 K/uL (0.1-1.3); Absolute Neutrophil 4.8 K/uL (1.8-8.0); Basophils % 0.5 % (0-1.3); Eosinophils % 3.1 % (0-4.4); Hematocrit 41.3 % (39.6-49.0); Lymphocytes % 29.3 % (15.3-44.8); MCH 31.3 pg (27.0-35.0); MCHC 33.8 g/dL (32.0-36.0); MCV 92.5 fL (80-100); MPV 7.3 fL (7.6-11.3); Monocytes % 7.5 % (3.3-12.3); Neutrophils % 59.6 % (41.7-73.7); Nucleated Red Blood Cells % 0.1 % (0-0); Platelets 274 thou/uL (152-406); RBC Red Blood Cell Count 4.47 M/uL (4.33-5.43); Red Cell Distribution Width 13.6 % (12.1-15.2)
[2024-10-12 06:48] LABS: Albumin 3.4 g/dL (3.4-5.0); Albumin/Globulin Ratio 0.9 (1.1-1.8); Anion Gap 8.9 mEq/L (5.0-15.0); Bilirubin Total 0.3 mg/dL (0.2-1.0); Globulin 3.7 g/dL (2.3-3.5); Magnesium 2.1 mg/dL (1.6-2.4); Phosphorus 4.2 mg/dL (2.5-4.9); Potassium 3.9 mEq/L (3.5-5.1); Protein, Total 7.1 g/dL (6.4-8.2)
[2024-10-12 06:51] LABS: Thyroid Stimulating Hormone 11.7 uIU/mL (0.358-3.740); Troponin High Sensitivity 114.7 pg/mL (<58.9)
[2024-10-12] MEDS: METOPROLOL TAR 25 MG TAB PO SCH ×2 (08:48→21:11)
[2024-10-12] MEDS: LEVOTHYROXINE SOD 0.1 MG TAB PO SCH (08:49)
[2024-10-12] MEDS: POTASSIUM CL SA 10 MEQ TAB PO ONE (08:49)
[2024-10-12] MEDS: ISOSORBIDE MONO SR 30 MG TAB PO SCH (08:49)
[2024-10-12] MEDS: ASPIRIN 81 MG CHEWABLE TABLET PO SCH (08:49)
[2024-10-12] MEDS: CLOPIDOGREL 75 MG TABLET PO SCH (08:50)
--- NOTE | 2024-10-12 18:00 | P.PN ---
Subjective Date of Service: 10/12/24 Chief Complaint: Chest pain Patient reports intermittent chest pain. He denies shortness of breath. Physical Examination - Vital Signs Temperature: 97.5 F Blood Pressure: 140/78 Pulse: 67 Respirations: 20 Pulse Ox (%): 94 - Studies Laboratory Data (last 24 hrs) 10/11/24 10/11/24 20:47 20:47 WBC 7.90 Hgb 14.4 Hct 42.6 Plt Count 284 Sodium 138 Potassium 3.7 BUN 16 Creatinine 0.90 Glucose 130 H Magnesium 2.0 Total Bilirubin < 0.2 L AST 14 L ALT 26 Alkaline Phosphatase 90 Assessment And Plan - Plan Physical examination General: Alert and oriented x3, NAD, morbidly obese HEENT: Conjunctiva not pale, anicteric sclera Neck: Supple, no elevated JVD Heart: Heart sounds 1 and 2 normal, regular rhythm, normal rate, no pedal edema Lungs: Clear to auscultation bilaterally, adequate breath sounds bilaterally, no rhonchi or crackles. Abdomen: Soft, nondistended, nontender, normal bowel sounds. Extremities: No tenderness, no deformity Skin: Normal skin turgor, no rash, no nodules or ulcers. Neuro: No focal motor deficit. Normal speech. Psychiatry: Normal mood Assessment and plan Chest pain Coronary artery disease status post multiple stents Morbid obesity Hypertension Hypothyroidism Tobacco use Chest pain Coronary artery disease NSTEMI Hyperlipidemia Troponin trended slightly up Cardiology evaluated patient Echocardiogram result is pending. Continue to trend troponin. Nitroglycerin and morphine for pain Continue aspirin and Plavix Continue statin. Further management per cardiology. Hypertension Resume home medications. Hypothyroidism: TSH 11 Patient is on high-dose synthroid suggesting refractory hypothyroidism. This is probably secondary to noncompliance or poor absorption related to timing of administration. Resume home dose Synthroid 300 mcg daily. Reemphasized taking the Synthroid on an empty stomach. Tobacco use Smoking cessation advised. DVT prophylaxis: Lovenox Advanced directive: Full code
[2024-10-12] MEDS: ATORVASTATIN 40 MG TAB PO SCH (21:11)
[2024-10-13 06:41] LABS: Anion Gap 6.9 mEq/L (5.0-15.0); Potassium 3.9 mEq/L (3.5-5.1); Troponin High Sensitivity 128.7 pg/mL (<58.9)
[2024-10-13] MEDS: POTASSIUM CL SA 10 MEQ TAB PO ONE (09:08)
[2024-10-13] MEDS: ENOXAPARIN 40 MG/0.4 ML SQ SCH (09:09)
--- NOTE | 2024-10-13 16:15 | P.PN ---
Subjective Date of Service: 10/13/24 Chief Complaint: Chest pain Patient reports intermittent chest pain, episodes occurring last night. Physical Examination - Vital Signs Temperature: 98 F Blood Pressure: 150/82 Pulse: 76 Respirations: 18 Pulse Ox (%): 98 Assessment And Plan - Plan Physical examination General: Alert and oriented x3, NAD, morbidly obese HEENT: Conjunctiva not pale, anicteric sclera Neck: Supple, no elevated JVD Heart: Heart sounds 1 and 2 normal, regular rhythm, normal rate, no pedal edema Lungs: Clear to auscultation bilaterally, adequate breath sounds bilaterally, no rhonchi or crackles. Abdomen: Soft, nondistended, nontender, normal bowel sounds. Extremities: No tenderness, no deformity Neuro: No focal motor deficit. Normal speech. Assessment and plan Chest pain Coronary artery disease status post multiple stents Morbid obesity Hypertension Hypothyroidism Tobacco use Chest pain Coronary artery disease NSTEMI Hyperlipidemia Troponin trended flat Cardiology Dr. Khan evaluated patient and considering transfer for CABG. Echocardiogram result is pending. Nitroglycerin and morphine for pain Continue aspirin and Plavix. Continue statin. Cardiology to follow. Hypertension Continue home medications. Hypothyroidism: TSH 11 Patient is on high-dose synthroid suggesting refractory hypothyroidism. This is probably secondary to noncompliance or poor absorption related to timing of administration. Continue home dose Synthroid 300 mcg daily. Tobacco use Smoking cessation advised. DVT prophylaxis: Lovenox Advanced directive: Full code
[2024-10-14 07:17] LABS: Anion Gap 8.9 mEq/L (5.0-15.0); Potassium 3.9 mEq/L (3.5-5.1)
[2024-10-14] MEDS: POTASSIUM CL SA 10 MEQ TAB PO ONE (08:07)
--- NOTE | 2024-10-14 10:42 | P.CNS ---
Date of Consult: 10/14/24 Chief Complaint: Chest pain History of Present Illness: Patient with PMH of CAD, RECENT pci to OM presented with chest pain, pressure in nature, started yesterday, patient known to have moderate multivessel disease, and tried medical management for him but he started having this chest pain, pressure in nature yesterday, relieved by morphine. Allergies Penicillins Allergy (Intermediate, Verified 03/10/24 01:47) Hives/Rash Home medications list reviewed: Yes Home Medications: Levothyroxine Sodium [Synthroid] 1 tab PO DAILY 02/05/24 Aspirin Chewable [Aspirin Chewable*] 81 mg PO DAILY #30 tab.chew 02/07/24 Clopidogrel Bisulfate [Plavix] 75 mg PO DAILY 05/30/24 Isosorbide Mononitrate [Isosorbide Mononitrate ER] 30 mg PO DAILY 30 Days #30 tab 09/24/24 Metoprolol Tartrate 1 tab PO BID 10/12/24 - Past Medical/Surgical History Diabetic: No -: HDL -: HTN -: HYPOTHYROIDISM -: ID, PCI, 02/10 -: RAMIRO -: PCI - Family History Mother Medical History: Hypertension Father Medical History: Hypertension, Diabetes - Social History Smoking Status: Current every day smoker Alcohol use: No CD- Drugs: No Caffeine use: Yes Place of Residence: Home Review of Systems 10-point ROS is otherwise unremarkable Physical Examination Temp Pulse Resp BP Pulse Ox 98.1 F 67 16 141/66 H 94 10/14/24 08:00 10/14/24 09:52 10/14/24 09:52 10/14/24 09:52 10/14/24 09:52 General: Alert, In no apparent distress HEENT: Atraumatic, PERRLA, Mucous membr. moist/pink, EOMI, Sclerae nonicteric Neck: Supple, 2+ carotid pulse no bruit, No LAD, Without JVD or thyroid abnormality Respiratory: Clear to auscultation bilaterally, Normal air movement Cardiovascular: Regular rate/rhythm, Normal S1 S2 Gastrointestinal: Normal bowel sounds, No tenderness Musculoskeletal: No tenderness Integumentary: No rashes Neurological: Normal gait, Normal speech, Normal tone, Normal affect Lymphatics: No axilla or inguinal lymphadenopathy - Problems (1) CAD (coronary artery disease) Current Visit: Yes Status: Acute Plan: mild elevated troponin NPO for coronary ngiogram continue ASA, Plavix continue statins (2) HLD (hyperlipidemia) Current Visit: No Status: Acute Plan: continue lipitor 40 mg daily (3) HTN (hypertension) Current Visit: No Status: Acute Plan: continue metoprolol and Imdur
[2024-10-14] MEDS ORDERED: LIDOCAINE 1% 20 ML MDV ONE (12:07)
[2024-10-14] MEDS ORDERED: HEPA 1000U/500MLS 2,000 UNIT/1,000 ML BAG IV ONE (12:07)
[2024-10-14] MEDS ORDERED: HEPARIN 10,000 UNIT/10 ML VIAL IV ONE (12:07)
[2024-10-14] MEDS ORDERED: CLOPIDOGREL 75 MG TABLET ONE (12:07)
[2024-10-14] MEDS ORDERED: ATROPINE SULF 1 MG/10 ML SYR IV ONE (12:07)
[2024-10-14] MEDS ORDERED: MIDAZOLAM HCL 2 MG/2 ML INJ ONE (12:07)
[2024-10-14] MEDS ORDERED: FENTANYL CITR 100 MCG/2 ML ONE (12:08)
[2024-10-14] MEDS ORDERED: TICAGRELOR 90 MG TABLET PO ONE (12:08)
[2024-10-14] MEDS ORDERED: ASPIRIN 325 MG TAB ONE (12:08)
[2024-10-14] MEDS ORDERED: HEPARIN 5000 UNIT/ML 1 ML VIAL ONE (12:08)
--- NOTE | 2024-10-14 12:39 | P.PN ---
Subjective Date of Service: 10/14/24 Chief Complaint: Chest pain Patient states intermittent chest pain patient, most recent episode, this morning. He denies shortness of breath. Physical Examination - Vital Signs Temperature: 98.1 F Blood Pressure: 141/66 Pulse: 67 Respirations: 16 Pulse Ox (%): 94 Assessment And Plan - Plan Physical examination General: Alert and oriented x3, NAD, morbidly obese Neck: No elevated JVD Heart: Heart sounds 1 and 2 normal, regular rhythm, normal rate, no pedal edema Lungs: Clear to auscultation bilaterally, adequate breath sounds bilaterally, no rhonchi or crackles. Abdomen: Soft, nondistended, nontender, normal bowel sounds. Extremities: No tenderness, no deformity Neuro: No focal motor deficit. Normal speech. Assessment and plan Chest pain Coronary artery disease status post multiple stents Morbid obesity Hypertension Hypothyroidism Tobacco use Chest pain Coronary artery disease NSTEMI Hyperlipidemia Troponin trended flat. Patient continued to experience intermittent chest pain. Cardiology is considering cardiac cath today. Echocardiogram result is pending. Nitroglycerin and morphine as needed for chest pain Continue aspirin and Plavix. Continue statin. Cardiology to follow. Hypertension Continue home medications. Hypothyroidism: TSH 11 Patient is on high-dose synthroid suggesting refractory hypothyroidism. This is probably secondary to noncompliance or poor absorption related to timing of administration. Continue home dose Synthroid 300 mcg daily. Repeat TSH as outpatient in 8 weeks. Tobacco use Smoking cessation advised. DVT prophylaxis: Lovenox Advanced directive: Full code
[2024-10-14] MEDS ORDERED: NA CHLORIDE 0.9% 500 ML ONE (12:58)
--- NOTE | 2024-10-14 20:40 | OP ---
Date of Procedure: 10/14/2024 Surgeon: Ganga Franks Procedures Performed: 1.Left heart catheterization. 2.Selective coronary angiogram. 3.PCI of the LAD with Synergy 3.0 x 32 mm drug-eluting stent. Indication For Procedure: Unstable angina, [id number] TN. Complications: None. Estimated Blood Loss: Less than 50 cc. Access: Right radial, closed by TR band. Sedation Time: 30 minutes with 1 of Versed and 25 of fentanyl. Description Of Procedure: After risks, and benefits, and alternatives were explained to the patient, patient agreed to proceed with procedure and signed informed consent. The patient was brought back to the film laboratory technician, prepped and draped in sterile fashion. Time-out was performed. Sedation was admini stered. Next, the right radial access was obtained using ultrasound-guided micropuncture technique. [place] 4.0 catheter was advanced over a J-wire to the LV cavity. LVEDP was obtained. Pullback did n ot show any gradient. Same catheter was used for selective angiogram of the left and right coronary systems. The catheter was later exchanged for an XB LAD 3.0 mm guide. Heparin was administered. AC T was therapeutic. Runthrough wire was passed across the LAD and another Runthrough wire was passed across the diagonal for protection. We pre-dilated the mid LAD lesion with an NC 2.5 mm balloon. Ne xt, Synergy 3.0 x 32 mm drug-eluting stent was placed across the lesion that was postdilated with an NC 3.5 mm balloon. Final angiogram shows SAVI-3 flow. Wires were removed. Catheter was removed ove r a J-wire. Sheath was removed. TR band was applied. Hemostasis was achieved and the patient was m felicia back to Recovery in stable condition. Findings: 1.Left main normal. 2.LAD; diffuse heavy atherosclerosis with proximal to mid 70% disease, status post PCI as above, the n distal diffuse 50% to 60% disease. 3.Diagonal 1; medium size with proximal 60% disease, also diffuse disease. 4.Left circ; mild luminal irregularities. 5.OM1 with a proximal 60% to 70% disease. 6.OM2; proximal to mid stent patent. 7.RCA; proximal 40% disease. The mid stent patent with distal mild luminal irregularities. 8.RPDA/RPLB; diffuse atherosclerosis with 30% to 40% disease. Assessment And Plan: 1.Significant mid LAD disease, status post PCI with Synergy 3.0 x 32 mm drug-eluting stent. 2.Patent left circ into OM2 stent and RCA stent. 3.Moderate diffuse distal LAD, proximal diagonal, and proximal OM1 disease. Plan: 1.Aspirin 81 mg daily for life. 2.Plavix 300 is reloaded in the film laboratory technician. To continue Plavix 75 mg daily. 3.Continue aggressive medical treatment for CAD. JAN/DANISHA Voice ID: [id number] Report ID: [id number]
[2024-10-15 00:25] VITALS: O2SAT 97
--- NOTE | 2024-10-15 10:59 | P.DS ---
Admission Date: 10/11/24 Discharge Date: 10/15/24 Disposition: ROUTINE DISCHARGE Discharge Condition: FAIR Reason for Admission: Chest pain Brief History of Present Illness: 49-year-old man with a past medical history significant for HTN, HDL, hypothyroidism, obesity, and CAD s/p stenting presented to the emergency department complaining of chest pain. He is an everyday smoker, and reports smoking a pack a week. The patient states he had multiple cardiac stents placed this year for his chest pain. Hospital Course: Diagnosis Chest pain Coronary artery disease status post multiple stents Morbid obesity Hypertension Hypothyroidism Tobacco use Patient admitted to the medical floor the following medical problems addressed: Chest pain Coronary artery disease NSTEMI Hyperlipidemia Troponin trended flat. Patient continued to experience intermittent chest pain. Patient evaluated by cardiology and underwent cardiac catheterization in mid LAD stented Continued aspirin and Plavix. Patient placed Lipitor 40 mg daily. Patient currently chest pain-free with stable vitals. He is deemed stable for discharge by cardiology. Hypertension Continued home medications. Hypothyroidism: TSH 11 Patient is on high-dose synthroid suggesting refractory hypothyroidism. This is probably secondary to noncompliance or poor absorption related to timing of administration. Continued home dose Synthroid 300 mcg daily. Repeat TSH as outpatient in 8 weeks. Tobacco use Smoking cessation advised. Morbid obesity Weight loss by diet and exercise advised. Vital Signs/Physical Exam: Temp Pulse Resp BP Pulse Ox 97.8 F 74 20 140/84 98 10/15/24 08:00 10/15/24 09:30 10/15/24 08:00 10/15/24 09:30 10/15/24 08:00 General: Alert, In no apparent distress, Oriented x3, Obese HEENT: Mucous membr. moist/pink, Sclerae nonicteric Neck: Supple, JVD not distended Respiratory: Clear to auscultation bilaterally, Normal air movement Cardiovascular: No edema, Regular rate/rhythm, Normal S1 S2 Gastrointestinal: Normal bowel sounds, Soft and benign, Non-distended, No tenderness Musculoskeletal: No swelling Integumentary: No rashes, No cyanosis Neurological: Normal strength at 5/5 x4 extr Laboratory Data at Discharge: WBC 8.00 thou/uL (4.3-10.9) 10/12/24 05:44 Hgb 14.0 g/dL (13.6-17.9) 10/12/24 05:44 Hct 41.3 % (39.6-49.0) 10/12/24 05:44 Plt Count 274 thou/uL (152-406) 10/12/24 05:44 Sodium 136 mEq/L (136-145) 10/14/24 06:05 Potassium 3.9 mEq/L (3.5-5.1) 10/14/24 06:05 BUN 11 mg/dL (7-18) 10/14/24 06:05 Creatinine 0.72 mg/dL (0.70-1.30) 10/14/24 06:05 Glucose 103 mg/dL (74-106) 10/14/24 06:05 Phosphorus 4.2 mg/dL (2.5-4.9) 10/12/24 05:44 Magnesium 2.1 mg/dL (1.6-2.4) 10/12/24 05:44 Total Bilirubin 0.3 mg/dL (0.2-1.0) 10/12/24 05:44 AST 19 U/L (15-37) 10/12/24 05:44 ALT 32 U/L (16-61) 10/12/24 05:44 Alkaline Phosphatase 80 U/L (45-117) 10/12/24 05:44 Triglycerides 237 mg/dL (<150) H 10/12/24 05:44 Cholesterol 187 mg/dL (<200) 10/12/24 05:44 HDL Cholesterol 34 mg/dL (40-60) L 10/12/24 05:44 Cholesterol/HDL Ratio 5.50 10/12/24 05:44 Home Medications: Levothyroxine Sodium [Synthroid] 1 tab PO DAILY 02/05/24 Aspirin Chewable [Aspirin Chewable*] 81 mg PO DAILY #30 tab.chew 02/07/24 Isosorbide Mononitrate [Isosorbide Mononitrate ER] 30 mg PO DAILY 30 Days #30 tab 09/24/24 Metoprolol Tartrate 1 tab PO BID 10/12/24 Atorvastatin Calcium [Lipitor] 40 mg PO BEDTIME #30 tab 10/15/24 Clopidogrel Bisulfate [Plavix] 75 mg PO DAILY #30 tab 10/15/24 New Medications: Atorvastatin Calcium [Lipitor] 40 mg PO BEDTIME #30 tab Clopidogrel Bisulfate [Plavix] 75 mg PO DAILY #30 tab Diet: AHA Activity: Ad mono Followup: Ganga Franks MD [ACTIVE - CAN ADMIT] - 1 Week OOT,OOT [Primary Care Provider] - Time spent managing pt's care (in minutes): 34
[2024-10-15 12:24] VITALS: BP 132/65; TEMP 98
--- NOTE | 2024-10-18 10:35 | ECHO ---
HEIGHT: 5 ft 8 in WEIGHT: 249 lb 14.4 oz DATE OF STUDY: 10/12/[address]: Glendy Boo PA-C 2-DIMENSIONAL: YES M.MODE: YES DOPPLER: YES COLOR FLOW: YES TDS: NO PORTABLE: YES DEFINITY: NO BUBBLE STUDY: NO DIAGNOSIS: CHEST PAIN CARDIAC HISTORY: CATHERIZATION:YES SURGERY: NO PROSTHETIC VALVE: NO PACEMAKER: NO MEASUREMENTS (cm) DIASTOLIC (NORMALS) SYSTOLIC (NORMALS) IVSd 1.2 (0.6-1.2) LA Diam 3.0 (1.9-4.0) LVEF 60-65% LVIDd 3.8 (3.5-5.7) LVIDs 2.3 (2.0-3.5) %FS 39% LVPWd 1.2 (0.6-1.2) Ao Diam 2.6 (2.0-3.7) 2 DIMENSIONAL ASSESSMENT: RIGHT ATRIUM: NORMAL LEFT ATRIUM: NORMAL RIGHT VENTRICLE: NORMAL LEFT VENTRICLE: NORMAL TRICUSPID VALVE: NORMAL MITRAL VALVE: TRACE MITRAL REGURGITATION PULMONIC VALVE: NORMAL AORTIC VALVE: NORMAL PERICARDIAL EFFUSION: NONE AORTIC ROOT: NORMAL LEFT VENTRICULAR WALL MOTION: NORMAL. DOPPLER/COLOR FLOW: NORMAL. COMMENTS: 1. NORMAL LEFT VENTRICULAR EJECTION FRACTION 60-65% WITH NORMAL WALL MOTION. 2. TRACE MITRAL REGURGITATION. TECHNOLOGIST: DC MORALES
== END 2024-10-15 15:43 | disposition home or self-care (01) | DRG 322 ==
LOC: ER 20:06 → ERHOLD 22:17 → 4TH 10-12 02:12
PROVIDERS: ADMIT Internal Medicine; ATTEND Internal Medicine
PROC: 027034Z Dilation of Coronary Artery, One Artery with Drug-eluting Intraluminal Device, Percutaneous Approach (ICD-10-PCS; principal; 2024-10-14)
PROC: 4A023N7 Measurement of Cardiac Sampling and Pressure, Left Heart, Percutaneous Approach (ICD-10-PCS; 2024-10-14)
PROC: B2111ZZ Fluoroscopy of Multiple Coronary Arteries using Low Osmolar Contrast (ICD-10-PCS; 2024-10-14)
DX: I21.4 Non-ST elevation (NSTEMI) myocardial infarction (principal); E03.9 Hypothyroidism, unspecified; E78.00 Pure hypercholesterolemia, unspecified; I10 Essential (primary) hypertension; E66.01 Morbid (severe) obesity due to excess calories; I25.10 Atherosclerotic heart disease of native coronary artery without angina pectoris; I25.2 Old myocardial infarction; F17.210 Nicotine dependence, cigarettes, uncomplicated; Z88.0 Allergy status to penicillin; Z71.6 Tobacco abuse counseling; Z95.5 Presence of coronary angioplasty implant and graft; Z79.82 Long term (current) use of aspirin; Z68.38 Body mass index [BMI] 38.0-38.9, adult; Z79.02 Long term (current) use of antithrombotics/antiplatelets; Z90.49 Acquired absence of other specified parts of digestive tract; Z79.890 Hormone replacement therapy; Z79.899 Other long term (current) drug therapy
CPT/HCPCS: 36415; 71045; 76937; 80048; 80053; 80061; 80076; 83735; 83880; 84100; 84439; 84443; 84484; 85025; 85347; 92928; 93306; 94760; 96374; 96375; 99152; 99153; 99285; C1725; C1877; C1893; J0461; J1644; J1650; J2003; J2250; J2405; J3010; J7030; J7040; Q9967

== ENCOUNTER 2024-10-29 10:42 | Observation (INO) | payer OTHER, SELFPAY ==
--- OUTSIDE RECORDS SUMMARY | 2024-10-29 10:50 | XMS REPORT | Continuity of Care Document ---
Author Name Unknown Address [address] [facility] [place] [address] [facility] Address [address] [facility] [address] [place] [address] Care Team Providers Care Director Banking Name Role Phone PCP, PATIENT DOES NOT HAVE A Primary Care Physic bala Unavailable Doctor Unassigned, [place] Attending Clinician U BABS Cohen Attending Clinician Unavailable CHAPITO CONTRERAS Attending Clinician Unavailable CHAPITO CONTRERAS Attending Clinician Unavailable Nidia SOLANO Attending Clinician Unavailable Nidia SOLANO Attending Clinician Unavailable JOSE FRANCISCO WALTERS Attending Clinician Unavailable Jose Francisco Walters MD Attending Clinician [phone] MADELINE TAM Attending Clinician Unavailable MADELINE TAM Attending Clinician Unavailable Madeline Tam DO Attending Clinician [phone] Patrick Garrett Attending Clinician [phone] PATRICK VERGARA Attending Clinician Unavailable MONROE ESCOBAR Attending Clinician Unavailable MONROE ESCOBAR Attending Clinician Unavailable MARIE MORALES Attending Clinician Unavailab Marie Cespedes DO Attending Clinician [phone] LALA CLARKE Attending Clinician Unavailable Lala Clarke DO Attending Clinician [phone] BENJAMIN ASHFORD Attending Clinician Unavailable Benjamin Ashford MD Attending Clinician [phone] Geoff Cardona MD Attending Clinician [phone] GEOFF CARDONA Attending Clinician Unavailable Kiki Mathur MD Attending Clinician [phone] KIKI MATHUR Attending Clinician UnavailGricelda Sherman MD Attending Clinician [phone] MARIBELL CEDILLO Attending Clinician UnavailBABS Garza Admitting Clinician Unavailable JOSE FRANCISCO WALTERS Admitting Clinician Unavailable CHAPITO CONTRERAS Admitting Clinician Unavailable MADELINE TAM Admitting Clinician Unavailable PATRICK VERGARA Admitting Clinician Unavailable Nidia SOLANO Admitting Clinician Unavailable MARIE MORALES Admitting Clinician UnavailGricelda Morales MD Admitting Clinician [phone] EMERGENCY ROOM, EMERGENCY Admitting Clinician Un available Payers Payer Name Policy Type Policy Number Effective Date Expirati on Date Source [facility] [id number] 2023 00:00:00 Problems Condition Name Condition Details Condition Category Status Onset Date Resolution Date Last Treatment Date Treating Clinician Comments Source Obesity (BMI 30-39.9) Obesity (BMI 30-39.9) Disease Active 05-08 00:00: 00 [facility] Cigarette nicotine dependence without complicati on Cigarette nicotine dependence without complicati on Disease Active 2019-10 00:00: 00 [facility] Atypical chest pain Atypical chest pain Disease Active 2019-10 00:00: 00 [facility] Essential hypertensi on Essential hypertensi on Disease Active 2019-10 00:00: 00 [facility] No known active problems No known active problems Disease [facility] Allergies, Adverse Reactions, Alerts Allergy Name Allergy Type Status Severity Reaction(s) Onset Date Inactive Date Treating Clinician Comments Source Penicill in Propensi ty to adverse reaction s Active Unknown - See comments 03-30 00:00: 00 [facility] PENICILL IN DRUG INGREDI Active Unknown-Cmnt 03-30 00:00: 00 [facility] NO KNOWN ALLERGIE S Drug Class Active [facility] Social History Social Habit Start Date Stop Date Quantity Comments Source History of tobacco use Cigarette Smoker [facility] History SDOH Alcohol Frequency [facility] History SDOH Alcohol Std Drinks [facility] History SDOH Alcohol Binge [facility] Gender identity [facility] Alcoholic beverage intake 2024-02-04 00:00:00 2024-02-04 00:00:00 Current drinker of alcohol (finding) [facility] Alcohol intake 2024-02-04 00:00:00 2024-02-04 00:00:00 Current drinker of alcohol (finding) [facility] Exposure to SARS-CoV-2 (event) 2023-02-10 00:00:00 2023-02-20 18:06:00 Not sure [facility] Cigarettes smoked current (pack per day) - Reported 2021-05-08 00:00:00 2021-05-08 00:00:00 [facility] Alcohol Comment 2021-05-08 00:00:00 2021-05-08 00:00:00 6beers on the weekend [facility] Tobacco use and exposure 2021-05-08 00:00:00 2021-05-08 00:00:00 Smokeless tobacco non-user [facility] History of Social function 2020-08-29 00:00:00 2020-08-29 00:00:00 [facility] Sex assigned at 1975 00:00:00 1975 00:00:00 [facility] Smoking Status Start Date Stop Date Source Smokes tobacco daily 2021-05-08 00:00:00 [facility] Medications Ordered Medication Name Filled Medication Name Start Date Stop Date Current Medication? Ordering Clinician Indication Dosage Frequency Signature (SIG) Comments Components Source iopamidol (ISOVUE 370-500 mL) injection 85 mL 02-03 18:00: 00 02-03 18:00 :00 No [id number] 85mL 85 mL, Intravenou s, ONCE, 1 dose, On Fri02/04/24 at 1300, Routine [facility] morpHINE (2 mg/mL) injection 2 mg 02-03 17:45: 00 02-03 18:48 :00 No 2mg 2 mg, Slow IV Push, ONCE, 1 dose, On Fri02/04/24 at 1245, STAT [facility] ondansetron (ZOFRAN (PF)) injection 4 mg 02-03 16:30: 00 02-03 17:15 :00 No 4mg 4 mg, Slow IV Push, ONCE, 1 dose, On Fri02/04/24 at 1130, [facility] ketorolac (TORADOL) injection 15 mg 02-03 16:30: 00 02-03 17:16 :00 No 15mg 15 mg, Slow IV Push, ONCE, 1 dose, On Fri02/04/24 at 1130, [facility] sodium chloride (NS) injection 5 mL 02-03 15:28: 49 Yes 5mL 5 mL, Intravenou s, PRN, Starting on Fri02/04/24 at 1028, Until Discontinu ed, Routine, IV line flushing [facility] dicyclomine (BENTYL) injection 20 mg 12-27 09:15: 00 Yes 20mg 20 mg, Intramuscu lar, QID, First dose on Fri12/28/23 at 0415, Until Discontinu ed, Routine [facility] maalox:diph enhydrAMINE :lidocaine 2 % viscous 1:1:1 (FIRST-MOUT HWASH BLM) oral suspension 15 mL 12-27 08:30: 00 12-27 08:27 :00 No 15mL 15 mL, Oral, ONCE, 1 dose, On Fri12/28/23 at 0330, Routine [facility] maalox:diph enhydrAMINE :lidocaine 2 % viscous 1:1:1 (FIRST-MOUT HWASH BLM) oral suspension 15 mL 11-06 07:15: 00 11-06 07:38 :00 No 15mL 15 mL, Oral, ONCE, 1 dose, On Fri24 at 0115, Routine [facility] famotidine (PEPCID (PF)) injection 20 mg 11-06 07:15: 00 11-06 07:38 :00 No 20mg 20 mg, Slow IV Push, ONCE, 1 dose, On [place] 11/06/23 at 0115, [facility] NaCl 0.9% (NS) bolus infusion 1,000 mL 11-06 07:15: 00 11-06 07:38 :00 No 1000mL at 999 mL/hr, 1,000 mL, IV Infusion, ONCE, 1 dose, On Ale 11/06/23 at 0115, STAT [facility] ondansetron (ZOFRAN (PF)) injection 4 mg 11-06 07:15: 00 11-06 06:19 :00 No 4mg 4 mg, Slow IV Push, ONCE, 1 dose, On Ale 11/06/23 at 0115, [facility] dicyclomine (BENTYL) injection 20 mg 11-06 07:00: 00 11-06 07:00 :00 No 20mg 20 mg, Intramuscu lar, ONCE, 1 dose, On Ale 11/06/23 at 0100, Routine [facility] dicyclomine 20 mg tablet 11-06 00:00: 00 Yes 20mg Take 1 tablet by mouth 4 (four) times daily. Indication s: abdominal pain [facility] famotidine (PEPCID) 40 mg tablet 11-06 00:00: 00 Yes [id number] 40mg Take 1 tablet by mouth daily. [facility] acetaminoph en (TYLENOL) tablet 650 mg 11-01 09:30: 00 11-01 09:30 :00 No 650mg 650 mg, Oral, ONCE, 1 dose, On 11/01/23 at 0330, [facility] iopamidol (ISOVUE 370-500 mL) injection 100 mL 11-01 09:30: 00 11-01 09:30 :00 No [id number] 100mL 100 mL, Intravenou s, ONCE, 1 dose, On 11/01/23 at 0330, Routine [facility] morpHINE (4 mg/mL) injection 4 mg 11-01 07:00: 00 11-01 06:56 :00 No 4mg 4 mg, Slow IV Push, ONCE, 1 dose, On 11/01/23 at 0100, STAT [facility] ketorolac (TORADOL) injection 30 mg 11-01 06:45: 00 11-01 06:00 :00 No 30mg 30 mg, Slow IV Push, ONCE, 1 dose, On 11/01/23 at 0045, [facility] NaCl 0.9% (NS) bolus infusion 1,000 mL 11-01 06:45: 00 11-01 07:59 :00 No 1000mL at 999 mL/hr, 1,000 mL, IV Piggyback, ONCE, 1 dose, On 11/01/23 at 0045, STAT [facility] ondansetron (ZOFRAN (PF)) injection 4 mg 11-01 06:00: 00 11-01 05:59 :00 No 4mg 4 mg, Slow IV Push, ONCE, 1 dose, On 11/01/23 at 0000, [facility] morpHINE (4 mg/mL) injection 4 mg 11-01 06:00: 00 11-01 06:00 :00 No 4mg 4 mg, Slow IV Push, ONCE, 1 dose, On 11/01/23 at 0000, STAT [facility] famotidine (PEPCID) 20 mg tablet 11-01 00:00: 00 Yes [id number] 20mg Take 1 tablet by mouth 2 (two) times daily. [facility] dicyclomine 20 mg tablet 11-01 00:00: 00 Yes [id number] 20mg Take 1 tablet by mouth 3 (three) times daily as needed for Abdominal pain. [facility] iopamidol (ISOVUE 370-500 mL) injection 100 mL 10-23 08:00: 00 10-23 08:00 :00 No [id number] 100mL 100 mL, Intravenou s, ONCE, 1 dose, On Ale 10/23/23 at 0200, Routine [facility] FENTanyl PF (SUBLIMAZE (PF)) injection 50 mcg 10-23 08:00: 00 10-23 07:01 :00 No 50ug 50 mcg, Slow IV Push, ONCE, 1 dose, On Ale 10/23/23 at 0200, [facility] ketorolac (TORADOL) injection 30 mg 10-23 07:15: 00 10-23 06:08 :00 No 30mg 30 mg, Slow IV Push, ONCE, 1 dose, On Ale 10/23/23 at 0115, Routine [facility] ondansetron (ZOFRAN (PF)) injection 4 mg 10-23 06:15: 00 10-23 06:08 :00 No 4mg 4 mg, Slow IV Push, ONCE, 1 dose, On Ale 10/23/23 at 0015, [facility] ketorolac 10 mg tablet 10-23 00:00: 00 Yes [id number] 10mg Take 1 tablet by mouth every 6 (six) hours as needed for Pain (scale 7-10). [facility] iopamidol (ISOVUE 370-500 mL) injection 100 mL 2022-10 07:15: 00 09-26 07:15 :00 No [id number] 100mL 100 mL, Intravenou s, ONCE, 1 dose, On Fri09/26/23 at 0115, Routine [facility] ketorolac (TORADOL) injection 30 mg 2022-10 07:00: 00 09-26 06:12 :00 No 30mg 30 mg, Slow IV Push, ONCE, 1 dose, On Fri09/26/23 at 0100, [facility] NaCl 0.9% (NS) bolus infusion 1,000 mL 2022-10 06:00: 00 09-26 06:15 :00 No 1000mL at 999 mL/hr, 1,000 mL, IV Infusion, ONCE, 1 dose, On Fri09/26/23 at 0000, [facility] morpHINE (4 mg/mL) injection 4 mg 2022-10 05:30: 00 09-26 05:19 :00 No 4mg 4 mg, Slow IV Push, ONCE, 1 dose, On Ale 09/25/23 at 2330, STAT [facility] lactulose (CEPHULAC) solution 60 mL [...] 02:30: 30 Yes inject under the skin. [facility] iopamidol (ISOVUE 370-500 mL) injection 75 mL 2022-10 09:00: 00 08-24 09:00 :00 No [id number] 75mL 75 mL, Intravenou s, ONCE, 1 dose, On Fri08/24/23 at 0300, Routine [facility] ondansetron (ZOFRAN (PF)) injection 4 mg 2022-10 06:30: 00 08-24 08:15 :00 No 4mg 4 mg, Slow IV Push, ONCE, 1 dose, On Fri08/24/23 at 0130, [facility] morpHINE (4 mg/mL) injection 4 mg 2022-10 06:30: 00 08-24 08:14 :00 No 4mg 4 mg, Slow IV Push, ONCE, 1 dose, On Fri08/24/23 at 0130, STAT [facility] aspirin tablet 325 mg 2022-10 05:15: 00 08-24 05:18 :00 No 325mg 325 mg, Oral, ONCE, 1 dose, On Fri08/24/23 at 0015, STAT [facility] ketorolac (TORADOL) injection 30 mg 07-07 10:45: 00 07-07 09:53 :00 No 30mg 30 mg, Slow IV Push, ONCE, 1 dose, On Fri07/07/23 at 0545, Routine [facility] metoclopram glenroy HCl (REGLAN) injection 10 mg 07-07 09:45: 00 07-07 09:54 :00 No 10mg 10 mg, Slow IV Push, ONCE, 1 dose, On Fri07/07/23 at 0445, [facility] butalbital- acetaminoph en-caff 50-325-40 mg tablet 07-07 00:00: 00 Yes [id number] 1{tbl} Take 1 tablet by mouth every 6 (six) hours as needed (Headache) . [facility] metFORMIN (GLUCOPHAGE ) tablet 500 mg 05-26 13:00: 00 Yes 500mg 500 mg, Oral, BID MEALS, First dose on Fri05/26/23 at 0800, Until Discontinu ed, Routine [facility] ketorolac (TORADOL) injection 15 mg 05-26 03:00: 00 05-26 02:19 :00 No 15mg 15 mg, Slow IV Push, ONCE, 1 dose, On Fri05/25/23 at 2200, [facility] nitroglycer in (NITROL) 2 % ointment 0.5 Inch 05-25 23:30: 00 05-26 01:27 :00 No .5[in_u s] 0.5 Inch, Transderma l (Apply To Skin), ONCE, 1 dose, On Fri05/25/23 at 1830, [facility] maalox:diph enhydrAMINE :lidocaine 2 % viscous 1:1:1 (FIRST-MOUT [facility]) oral suspension 15 mL 05-25 23:30: 00 05-26 00:49 :00 No 15mL 15 mL, Oral (Swish & Swallow), ONCE, 1 dose, On [place] 05/25/23 at 1830, Routine [facility] aspirin chewable tablet 324 mg 05-25 23:30: 00 05-25 22:24 :00 No 324mg 324 mg, Oral, ONCE, 1 dose, On [place] 05/25/23 at 1830, Routine [facility] metFORMIN 500 mg tablet 05-25 00:00: 00 Yes [id number] 500mg Take 1 tablet by mouth 2 (two) times daily. [facility] naproxen (NAPROSYN) 500 mg tablet 05-25 00:00: 00 02-03 00:00 :00 No [id number] 500mg Take 1 tablet by mouth 2 (two) times daily with meals. [facility] cloNIDine (CATAPRES) tablet 0.2 mg 02-21 00:45: 00 02-21 01:50 :00 No .2mg 0.2 mg, Oral, ONCE, 1 dose, On [facility] 02/20/23 at 1945, [facility] ibuprofen (IBU) tablet 600 mg 02-20 23:30: 00 02-20 23:30 :00 No 600mg 600 mg, Oral, ONCE, 1 dose, On [facility] 02/20/23 at 1830, [facility] ibuprofen 600 mg tablet 02-20 00:00: 00 02-03 00:00 :00 No [id number] 600mg Take 1 tablet by mouth every 6 (six) hours as needed for Pain (scale 4-6) for up to 30 doses. [facility] iopamidol (ISOVUE 370-500 mL) injection 100 mL 3-12 09:15: 00 12-29 09:15 :00 No [id number] 100mL 100 mL, Intravenou s, ONCE, 1 dose, On 12/29/22 at 0415, Routine [facility] ketorolac (TORADOL) injection 30 mg 12-29 09:00: 00 12-29 07:53 :00 No 30mg 30 mg, Slow IV Push, ONCE, 1 dose, On 12/29/22 at 0400, Routine [facility] ondansetron (ZOFRAN) 4 mg tablet 12-29 00:00: 00 Yes [id number] 4mg Take 1 tablet by mouth every 8 (eight) hours as needed for Nausea and Vomiting (N/V). [facility] ketorolac 10 mg tablet 12-29 00:00: 00 Yes [id number] 10mg Take 1 tablet by mouth every 6 (six) hours as needed for Pain (scale 7-10). [facility] maalox:diph enhydrAMINE :lidocaine 2 % viscous 1:1:1 (FIRST-MOUT HWASH BLM) oral suspension 15 mL 11-21 08:45: 00 11-21 08:36 :00 No 15mL 15 mL, Oral, ONCE, 1 dose, On Ale 11/21/22 at 0245, [facility] metoclopram glenroy HCl (REGLAN) tablet 10 mg 06-02 12:30: 00 Yes 10mg 10 mg, Oral, AC, First dose on 06/02/22 at 0730, Until Discontinu ed, Routine [facility] dexamethaso ne (DECADRON PHOSPHATE) injection 10 mg 06-02 06:00: 00 06-02 04:55 :00 No 10mg 10 mg, Oral, ONCE, 1 dose, On 06/02/22 at 0100, Routine [facility] butalbital- acetaminoph en-caff (ESGIC) 50-325-40 mg tablet 1 tablet 06-02 05:00: 00 06-02 04:56 :00 No 1{tbl} 1 tablet, Oral, ONCE, 1 dose, On 06/02/22 at 0000, [facility] diphenhydrA MINE (BENADRYL) tablet 50 mg 06-02 05:00: 00 06-02 04:54 :00 No 50mg 50 mg, Oral, ONCE, 1 dose, On Fri06/02/22 at 0000, [facility] levothyroxi ne (SYNTHROID) tablet 100 mcg 05-29 11:00: 00 Yes 100ug 100 mcg, Oral, QAM-0600, First dose on Fri05/29/22 at 0600, Until Discontinu ed, Routine [facility] levothyroxi ne 200 mcg tablet 05-28 13:18: 02 05-28 00:00 :00 No 300ug Take 300 mcg by mouth every morning. [facility] levothyroxi ne 300 mcg tablet 05-28 00:00: 00 08-27 05:59 :00 No [id number] 300ug Take 1 tablet by mouth every morning for 90 days. [facility] ketorolac (TORADOL) injection 15 mg 05-06 06:30: 00 05-06 05:30 :00 No 15mg 15 mg, Slow IV Push, ONCE, 1 dose, On Fri05/06/22 at 0130, [facility] ([facility]UE 370-500 mL) injection 65 mL 05-06 06:00: 00 05-06 06:15 :00 No [id number] 65mL 65 mL, Intravenou s, ONCE, 1 dose, On Fri05/06/22 at 0115, Routine [facility] benzonatate 200 mg capsule 05-06 00:00: 00 Yes [id number] 200mg Take 1 capsule by mouth 3 (three) times daily as needed for Cough for up to 20 doses. [facility] ondansetron 4 mg disintegrat ing tablet 05-06 00:00: 00 Yes [id number] 4mg Take 1 tablet by mouth every 8 (eight) hours as needed for Nausea and Vomiting (N/V). [facility] ibuprofen 600 mg tablet 05-06 00:00: 00 02-20 00:00 :00 No [id number] 600mg Take 1 tablet by mouth every 6 (six) hours as needed for Pain (scale 4-6). [facility] molnupiravi r 200 mg capsule 05-06 00:00: 00 05-12 04:59 :00 No [id number] 800mg Take 4 capsules by mouth every 12 (twelve) hours for 5 days. [facility] magnesium sulfate in water 2 gram/50 mL (4 %) infusion 2 g 05-01 13:45: 00 05-01 14:06 :00 No 2g 2 g, IV Piggyback, Administer over 60 Minutes, ONCE, 1 dose, On Fri05/01/22 at 0845, Routine [facility] diphenhydrA MINE (BENADRYL) injection 50 mg 05-01 12:45: 00 05-01 12:43 :00 No 50mg 50 mg, Slow IV Push, ONCE, 1 dose, On Fri05/01/22 at 0745, STAT [facility] maalox:diph enhydrAMINE :lidocaine 2 % viscous 1:1:1 (FIRST-MOUT HWASH BLM) oral suspension 15 mL 02-08 07:15: 00 02-08 06:14 :00 No 15mL 15 mL, Oral, ONCE, 1 dose, On Fri02/08/22 at 0215, [facility] sucralfate 1 gram tablet 02-08 00:00: 00 Yes [id number] 1g Take 1 tablet by mouth before meals and at bedtime. [facility] ondansetron 4 mg disintegrat ing tablet 02-08 00:00: 00 Yes [id number] 4mg Take 1 tablet by mouth every 4 (four) hours as needed for Nausea and Vomiting (N/V). [facility] pantoprazol e 40 mg EC tablet 02-08 00:00: 00 Yes [id number] 40mg Take 1 tablet by mouth daily. [facility] maalox:diph enhydrAMINE :lidocaine 2 % viscous 1:1:1 (FIRST-MOUT HWASH BLM) oral suspension 15 mL 2020-10 02:15: 00 10-15 01:17 :00 No 15mL 15 mL, Oral, ONCE, 1 dose, On Fri10/14/21 at 2015, Routine [facility] iopamidol (ISOVUE 370-500 mL) injection 120 mL 2020-10 01:45: 00 10-15 00:37 :00 No [id number] 120mL 120 mL, Intravenou s, ONCE, 1 dose, On Fri10/14/21 at 1945, Routine [facility] famotidine (PEPCID (PF)) injection 20 mg 2020-10 00:30: 00 10-15 00:26 :00 No 20mg 20 mg, Slow IV Push, ONCE, 1 dose, On Fri10/14/21 at 1830, Routine [facility] enalapril 20 mg tablet 05-15 17:24: 35 Yes 25mg Take 25 mg by mouth daily. [facility] levothyroxi ne 200 mcg tablet 05-15 17:24: 35 Yes 300ug Take 300 mcg by mouth every morning. [facility] enalapril 20 mg tablet 05-15 12:24: 35 Yes 25mg Take 25 mg by mouth daily. [facility] levothyroxi ne 200 mcg tablet 05-15 12:24: 35 Yes 300ug Take 300 mcg by mouth every morning. [facility] FENTanyl (ACTIQ) lollipop 600 mcg 05-08 19:45: 00 05-08 18:59 :00 No [id number] 600ug 600 mcg, Buccal, ONCE, 1 dose, 05/08/21 at 1445, Routine [facility] sulfamethox azole-trime thoprim (BACTRIM DS) 800-160 mg per tablet 05-08 00:00: 05-16 04:59 :00 No [id number] 1{tbl} Take 1 tablet by mouth 2 (two) times daily for 7 days. [facility] HYDROcodone -acetaminop hen (NORCO) 10-325 mg tablet 1 tablet 05-06 09:45: 00 05-06 08:44 :00 No 1{tbl} 1 tablet, Oral, ONCE, 1 dose, [place] 05/06/21 at 0445, Routine [facility] sulfamethox azole-trime thoprim 800-160 mg per tablet 05-06 00:00: 00 Yes [id number] 1{tbl} Take 1 tablet by mouth every 12 (twelve) hours. [facility] HYDROcodone -acetaminop hen 5-325 mg tablet 05-06 00:00: 00 05-14 04:59 :00 No [id number] 1{tbl} Take 1 tablet by mouth every 4 (four) hours as needed for Pain (scale 7-10) for up to 7 days. Indication s: acute pain [facility] ketorolac (TORADOL) injection 30 mg 03-15 06:30: 00 03-15 05:44 :00 No 30mg 30 mg, Slow IV Push, ONCE, 1 dose, [facility] 03/15/21 at 0130, Routine
research assistant member approving Restricted medication : CHAPITO CONTRERAS [facility] enalapril 20 mg tablet 03-15 06:19: 47 Yes 25mg Take 25 mg by mouth daily. [facility] levothyroxi ne 200 mcg tablet 03-15 06:19: 47 Yes 300ug Take 300 mcg by mouth every morning. [facility] iopamidol (ISOVUE 370-500 mL) injection 120 mL 03-15 06:00: 00 03-15 06:00 :00 No [id number] 120mL 120 mL, Intravenou s, ONCE, 1 dose, [facility] 03/15/21 at 0100, Routine [facility] KCL (KLOR-CON M20) tablet 40 mEq 03-15 05:45: 00 03-15 05:01 :00 No [id number] 40 mEq, Oral, ONCE, 1 dose, [facility] 03/15/21 at 0045, Routine [facility] ondansetron (ZOFRAN (PF)) injection 4 mg 03-15 05:30: 00 03-15 04:32 :00 No 4mg 4 mg, Slow IV Push, ONCE, 1 dose, [facility] 03/15/21 at 0030, [facility] FENTanyl PF (SUBLIMAZE (PF)) injection 75 mcg 03-15 05:30: 00 03-15 04:32 :00 No 75ug 75 mcg, Slow IV Push, ONCE, 1 dose, [facility] 03/15/21 at 0030, Routine [facility] traMADoL (ULTRAM) 50 mg tablet 03-15 00:00: 00 Yes [id number] 50mg Take 1 tablet by mouth every 6 (six) hours as needed for Pain (scale 4-6) or Pain (scale 7-10). Indication s: acute pain [facility] methocarbam oL 500 mg tablet 03-15 00:00: 00 Yes [id number] 500mg Take 1 tablet by mouth every 6 (six) hours as needed (MUSCLE SPASM). [facility] ibuprofen 800 mg tablet 03-15 00:00: 00 02-20 00:00 :00 No [id number] 800mg Take 1 tablet by mouth every 8 (eight) hours as needed for Pain (scale 4-6). [facility] pantoprazol e (PROTONIX) 80 mg in NaCl 0.9% (NS) 20 mL syringe 2019-10 00:15: 00 09-08 23:17 :00 No 80mg 80 mg, IV Push, ONCE, 1 dose, 09/08/20 at 1815, 20 mL [facility] maalox:diph enhydrAMINE :lidocaine2 %viscous 1:1:1: suspension (COMPOUNDED ) 2019-10 00:15: 00 09-08 23:16 :00 No 15mL 15 mL, Oral, ONCE, 1 dose, 09/08/20 at 1815, Routine [facility] sucralfate 1 gram tablet 2019-10 00:00: 00 Yes [id number] 1g Take 1 tablet by mouth before meals and at bedtime. [facility] dicyclomine (BENTYL) 10 mg capsule 2019-10 00:00: 00 Yes [id number] 10mg Take 1 capsule by mouth every 8 (eight) hours as needed for Abdominal pain. [facility] ondansetron 4 mg disintegrat ing tablet 2019-10 00:00: 00 Yes [id number] 4mg Take 1 tablet by mouth every 8 (eight) hours as needed for Nausea and Vomiting (N/V). [facility] omeprazole 20 mg capsule 2019-10 00:00: 00 10-09 05:59 :00 No [id number] 20mg Take 1 capsule by mouth daily for 30 days. [facility] ketorolac (TORADOL) injection 30 mg 2019-10 20:15: 00 09-06 19:14 :00 No 30mg 30 mg, Slow IV Push, ONCE, 1 dose, Fri09/06/20 at 1415, [facility]
Fa culty member approving Restricted medication : Nidia SOLANO [facility] FENTanyl PF (SUBLIMAZE (PF)) injection 50 mcg 2019-10 18:45: 00 09-06 17:38 :00 No 50ug 50 mcg, Slow IV Push, ONCE, 1 dose, Fri09/06/20 at 1245, STAT [facility] iohexol (OMNIPAQUE 350 BULK-500 mL) injection 150 mL 2019-10 18:15: 00 09-06 17:00 :00 No 150mL 150 mL, Intravenou s, ONCE, 1 dose, Fri09/06/20 at 1215, Routine [facility] ondansetron (ZOFRAN (PF)) injection 4 mg 2019-10 17:30: 00 09-06 16:33 :00 No 4mg 4 mg, Slow IV Push, ONCE, 1 dose, Fri09/06/20 at 1130, [facility] morpHINE injection 4 mg 2019-10 17:30: 00 09-06 16:33 :00 No 4mg 4 mg, Slow IV Push, ONCE, 1 dose, Fri09/06/20 at 1130, STAT [facility] ibuprofen 600 mg tablet 2019-10 00:00: 00 03-14 00:00 :00 No [id number] 600mg Take 1 tablet by mouth every 6 (six) hours as needed for Pain (scale 4-6). [facility] Polyethylen e Glycol 3350 (MIRALAX) powder 17 g 2019-10 13:00: 00 08-30 11:55 :00 No 17g 17 g, Oral, ONCE, 1 dose, Fri08/30/20 at 0700, Routine [facility] aspirin 81 mg chewable tablet 2019-10 00:00: 00 09-30 05:59 :00 No [id number] 81mg Take 1 tablet by mouth daily for 30 days. [facility] levothyroxi ne 125 mcg tablet 2019-10 23:22: 41 08-29 00:00 :00 No 300ug Take 300 mcg by mouth every morning. [facility] lisinopriL 30 mg tablet 2019-10 23:22: 41 08-29 00:00 :00 No 25mg Take 25 mg by mouth daily. [facility] ondansetron (ZOFRAN (PF)) injection 4 mg 2019-10 23:15: 07 08-31 23:14 :07 No 4mg 4 mg, Slow IV Push, Q6HPRN, Starting Fri08/29/20 at 1715, Until Fri08/31/20 at 1714, Routine, Nausea and Vomiting (N/V) [facility] morpHINE injection 2 mg 2019-10 22:49: 42 08-30 22:48 :42 No 2mg 2 mg, Slow IV Push, Q4HPRN, Starting Fri08/29/20 at 1649, Until Fri08/30/20 at 1648, Routine, Pain (scale 7-10) [facility] ondansetron (ZOFRAN (PF)) injection 4 mg 2019-10 18:03: 34 08-29 22:50 :21 No 4mg 4 mg, Slow IV Push, Q6HPRN, Starting Fri08/29/20 at 1203, Until Fri08/29/20 at 1650, Routine, Nausea and Vomiting (N/V) [facility] ibuprofen (IBU) tablet 600 mg 2019-10 18:00: 00 Yes 600mg 600 mg, Oral, Q6H, First dose on Fri08/29/20 at 1200, Until Discontinu ed, Routine [facility] acetaminoph en (TYLENOL) tablet 500 mg 2019-10 18:00: 00 Yes 500mg 500 mg, Oral, Q6H, First dose on Fri08/29/20 at 1200, Until Discontinu ed, Routine [facility] lactated ringers IV infusion 1,000 mL 2019-10 17:00: 00 Yes 1000mL at 75 mL/hr, 1,000 mL, IV Infusion, CONTINUOUS , Starting Fri08/29/20 at 1100, Until Discontinu ed, Routine, PACU [facility] FENTanyl PF (SUBLIMAZE (PF)) injection 25 mcg 2019-10 16:57: 53 08-29 17:58 :11 No 25ug 25 mcg, Slow IV Push, Q5MIN PRN, 4 doses, Starting Fri08/29/20 at 1057, Until Fri08/29/20 at 1158, Routine, Pain (scale 4-6), PACU [facility] ondansetron (ZOFRAN (PF)) injection 4 mg 2019-10 16:57: 53 08-29 17:13 :00 No 4mg 4 mg, Slow IV Push, PRN, 1 dose, Starting Fri08/29/20 at 1057, Until Fri08/29/20 at 1113, Routine, Nausea and Vomiting (N/V), PACU [facility] traMADoL (ULTRAM) tablet 100 mg 2019-10 16:11: 10 08-29 22:51 :09 No 100mg 100 mg, Oral, Q6HPRN, Starting Fri08/29/20 at 1011, Until Fri08/29/20 at 1651, Routine, Pain (scale 7-10) [facility] traMADoL (ULTRAM) tablet 50 mg 2019-10 16:10: 52 Yes 50mg 50 mg, Oral, Q6HPRN, Starting Fri08/29/20 at 1010, Until Discontinu ed, Routine, Pain (scale 4-6) [facility] acetaminoph en ADULT (OFIRMEV) injection 1,000 mg 2019-10 00:15: 00 08-29 16:11 :33 No 1000mg 1,000 mg, IV Infusion, Administer over 15 Minutes, Q6H ABX, 4 doses, First dose on Fri08/28/20 at 1815, Last dose on Fri08/29/20 at 1215, Routine
Indicatio n: Non-periop erative Patient
Approved by: Per Policy (NPO Status) [facility] metroNIDAZO LE in NaCl (iso-os) (FLAGYL I.V.) RTU IV infusion 500 mg 2019-10 00:15: 00 08-29 16:11 :42 No 500mg 500 mg, IV Infusion, Q8H ABX, First dose on Fri08/28/20 at 1815, Until Discontinu ed, 100 mL
Reas on for Anti-Infec tive: Empiric Therapy for Suspected Infection< br>Empiric Therapy Site: Abdominal< br>Duratio n of therapy: 7 days [facility] levoFLOXaci n in D5W (LEVAQUIN) 750 mg/150 mL Piggyback 750 mg 2019-10 00:15: 00 08-29 16:11 :42 No 750mg 750 mg, IV Piggyback, Administer over 90 Minutes, Q24H ABX, First dose on Fri08/28/20 at 1815, Until Discontinu ed, FAWN
Re ason for Anti-Infec tive: Empiric Therapy for Suspected Infection< br>Empiric Therapy Site: Abdominal< br>Duratio n of therapy: 72 hours [facility] levothyroxi ne 125 mcg tablet 2019-10 00:00: 00 09-29 05:59 :00 No [id number] 312.5ug Take 2.5 tablets by mouth every morning for 30 days. [facility] lisinopriL 30 mg tablet 2019-10 00:00: 00 09-29 05:59 :00 No [id number] 30mg Take 1 tablet by mouth daily for 30 days. [facility] pantoprazol e (PROTONIX) 40 mg EC tablet 2019-10 00:00: 00 09-29 05:59 :00 No [id number] 40mg Take 1 tablet by mouth daily for 30 days. [facility] ibuprofen 800 mg tablet 2019-10 00:00: 00 09-04 05:59 :00 No [id number] 800mg Take 1 tablet by mouth every 8 (eight) hours as needed for Pain (scale 4-6) for up to 5 days. [facility] sulfur hexafluorid e microsphr (LUMASON) injection 5 mL 2019-10 21:30: 00 08-28 16:58 :00 No 5mL 5 mL, Intravenou s, ONCE, 1 dose, Fri08/28/20 at 1530, Routine
research assistant member approving Restricted medication : DARIAN DAVENPORT [facility] morpHINE injection 4 mg 2019-10 20:09: 08 08-29 16:11 :42 No 4mg 4 mg, Slow IV Push, Q4HPRN, Starting Fri08/28/20 at 1409, Until Tu08/29/20 at 1011, Routine, Pain (scale 7-10) [facility] morpHINE injection 2 mg 2019-10 18:15: 00 08-28 17:20 :00 No 2mg 2 mg, Slow IV Push, ONCE, 1 dose, Fri08/28/20 at 1215, Routine [facility] levothyroxi ne (SYNTHROID) tablet 200 mcg 2019-10 12:00: 00 Yes 200ug 200 mcg, Oral, QAM-0600, First dose (after last modificati on) on 08/28/20 at 0600, Until Discontinu ed, Routine [facility] enoxaparin (LOVENOX) injection 40 mg 2019-10 23:00: 00 Yes 40mg 40 mg, Subcutaneo us, DAILY, First dose on 08/27/20 at 1700, Until Discontinu ed, Routine [facility] ketorolac (TORADOL) injection 30 mg 2019-10 15:45: 00 08-27 14:53 :00 No 30mg 30 mg, Slow IV Push, ONCE, 1 dose, 08/27/20 at 0945, Routine
research assistant member approving Restricted medication : DOMINGO ANNE [facility] lisinopriL (PRINIVIL,Z ESTRIL) tablet 20 mg 2019-10 15:00: 00 Yes 20mg 20 mg, Oral, DAILY, First dose on 08/27/20 at 0900, Until Discontinu ed, Routine [facility] pantoprazol e (PROTONIX) EC tablet 40 mg 2019-10 15:00: 00 Yes 40mg 40 mg, Oral, DAILY, First dose on 08/27/20 at 0900, Until Discontinu ed, Routine [facility] aspirin chewable tablet 81 mg 2019-10 15:00: 00 Yes 81mg 81 mg, Oral, DAILY, First dose on 08/27/20 at 0900, Until Discontinu ed, Routine [facility] levothyroxi ne (SYNTHROID) tablet 300 mcg 2019-10 12:00: 00 08-27 14:38 :59 No 300ug 300 mcg, Oral, QAM-0600, First dose on 08/27/20 at 0600, Until Discontinu ed, Routine [facility] nicotine (NICODERM) 21 mg/24 hr patch 1 Patch 2019-10 08:30: 00 Yes 1{patch } 1 Patch, Topical, Administer over 24 Hours, Q24H, First dose on 08/27/20 at 0230, Until Discontinu ed, Routine [facility] acetaminoph en (TYLENOL) tablet 975 mg 2019-10 08:15: 00 08-27 07:56 :00 No 975mg 975 mg, Oral, ONCE, 1 dose, [place] 08/27/20 at 0215, FAWN [facility] iohexol (OMNIPAQUE 350 BULK-100 mL) injection 120 mL 2019-10 07:45: 00 08-27 07:34 :00 No 120mL 120 mL, Intravenou s, ONCE, 1 dose, [place] 08/27/20 at 0145, Routine [facility] traMADoL (ULTRAM) tablet 50 mg 2019-10 07:16: 43 08-29 07:15 :43 No 50mg 50 mg, Oral, Q8HPRN, Starting [place] 08/27/20 at 0116, Until Fri08/29/20 at 0115, Routine, Pain (scale 4-6) [facility] acetaminoph en (TYLENOL) tablet 650 mg 2019-10 07:16: 41 08-28 23:11 :03 No 650mg 650 mg, Oral, Q6HPRN, Starting [place] 08/27/20 at 0116, Until Fri08/28/20 at 1711, Routine, Pain (scale 1-3) [facility] morpHINE injection 2 mg 2019-10 07:14: 54 08-28 20:09 :18 No 2mg 2 mg, Slow IV Push, Q4HPRN, Starting [place] 08/27/20 at 0114, Until Fri08/28/20 at 1409, Routine, Pain (scale 7-10) [facility] nitroglycer in (NITROSTAT) sublingual tablet 0.4 mg 2019-10 07:03: 30 Yes .4mg 0.4 mg, Sublingual , Q5MIN PRN, Starting [place] 08/27/20 at 0103, Until Discontinu ed, Routine, Chest pain [facility] alum-mag hydroxide-s imeth (MAALOX PLUS / MAG-AL PLUS) 200-200-20 mg/5 mL suspension 30 mL 2019-10 07:02: 48 Yes 30mL 30 mL, Oral, Q6HPRN, Starting 08/27/20 at 0102, Until Discontinu ed, Routine, Indigestio n [facility] aspirin tablet 325 mg 2019-10 07:00: 00 08-27 06:16 :00 No 325mg 325 mg, Oral, ONCE, 1 dose, [place] 08/27/20 at 0100, STAT [facility] nitroglycer in (NITROSTAT) sublingual tablet 0.4 mg 2019-10 07:00: 00 08-27 06:16 :00 No .4mg 0.4 mg, Sublingual , ONCE, 1 dose, [place] 08/27/20 at 0100, [facility] aspirin chewable tablet 324 mg 07-10 14:00: 00 Yes 324mg 324 mg, Oral, DAILY, First dose on Fri07/10/20 at 0900, Until Discontinu ed, Routine [facility] iohexol (OMNIPAQUE 350 BULK-100 mL) injection 120 mL 07-10 05:15: 00 07-10 05:08 :00 No 120mL 120 mL, Intravenou s, ONCE, 1 dose, [facility] 07/10/20 at 0015, Routine [facility] codeine-gua ifenesin (ROBITUSSIN AC) 10-100 mg/5 mL solution 10 mL 07-10 04:30: 00 07-10 03:23 :00 No 10mL 10 mL, Oral, ONCE, 1 dose, [place] 07/09/20 at 2330, [facility] LORazepam (ATIVAN) injection 1 mg 07-10 03:45: 00 07-10 03:14 :00 No 1mg 1 mg, Slow IV Push, ONCE, 1 dose, [place] 07/09/20 at 2245, STAT [facility] morpHINE injection 4 mg 07-10 03:30: 00 07-10 03:16 :00 No 4mg 4 mg, Slow IV Push, ONCE, 1 dose, [place] 07/09/20 at 2230, STAT [facility] pantoprazol e (PROTONIX) 40 mg in NaCl 0.9% (NS) 100 mL MINI-BAG 07-10 02:30: 00 07-10 01:48 :00 No 40mg 40 mg, IV Piggyback, ONCE, 1 dose, 07/09/20 at 2130, 100 mL [facility] ondansetron (ZOFRAN (PF)) injection 4 mg 07-10 02:00: 00 07-10 01:03 :00 No 4mg 4 mg, Slow IV Push, ONCE, 1 dose, 07/09/20 at 2100, FAWN [facility] morpHINE injection 4 mg 07-10 02:00: 00 07-10 01:03 :00 No 4mg 4 mg, Slow IV Push, ONCE, 1 dose, 07/09/20 at 2100, STAT [facility] nitroglycer in (NITROSTAT) sublingual tablet 0.4 mg 07-10 02:00: 00 07-10 01:02 :00 No .4mg 0.4 mg, Sublingual , ONCE, 1 dose, 07/09/20 at 2100, FAWN [facility] pantoprazol e (PROTONIX) 40 mg EC tablet 07-10 00:00: 00 08-29 00:00 :00 No [id number] 40mg Take 1 tablet by mouth daily. [facility] dicyclomine 20 mg tablet 07-10 00:00: 08-29 00:00 :00 No [id number] 20mg Take 1 tablet by mouth every 6 (six) hours as needed for Abdominal pain. [facility] benzonatate 200 mg capsule 07-10 00:00: 08-29 00:00 :00 No [id number] 200mg Take 1 capsule by mouth 3 (three) times daily as needed for Cough. [facility] ibuprofen 800 mg tablet 2018-10 0- 00:00: 08-29 00:00 :00 No [id number] 800mg Take 1 tablet by mouth every 8 (eight) hours as needed for Pain (scale 4-6). [facility] cyclobenzap rine 5 mg tablet 03-30 00:00: 00 08-29 00:00 :00 No [id number] 5mg Take 1 tablet by mouth 3 (three) times daily as needed for Muscle Spasms. [facility] LORazepam (ATIVAN) 0.5 mg tablet 06-14 00:00: 00 08-29 00:00 :00 No .5mg Take 1 tablet by mouth 2 (two) times daily as needed for Anxiety. [facility] levothyroxi ne 125 mcg tablet 05-11 10:32: 30 Yes 125ug Take 125 mcg by mouth every morning. [facility] Vital Signs Vital Name Observation Time Observation Value Comments S [facility]ack[facility] Systolic blood pressure 2024-02-04 18:48:00 142 mm[Hg] [facility] Diastolic blood pressure 2024-02-04 18:48:00 97 mm[Hg] [facility] Heart rate 2024-02-04 18:48:00 84 /min [facility] Respiratory rate 2024-02-04 18:48:00 16 /min [facility] Oxygen saturation in Arterial blood by Pulse oximetry 2024-02-04 18:48:00 97 /min [facility] Body temperature 2024-02-04 15:46:00 36.67 Nano [facility] Body height 2024-02-04 15:46:[address] [facility] Body weight 2024-02-04 15:46:[address] [facility] BMI 2024-02-04 15:46:00 37.25 kg/m2 [facility] Heart rate 2023-12-28 09:23:00 84 /min [facility] Respiratory rate 2023-12-28 09:23:00 16 /min [facility] Oxygen saturation in Arterial blood by Pulse oximetry 2023-12-28 09:23:00 96 /min [facility] Systolic blood pressure 2023-12-28 09:00:00 131 mm[Hg] [facility] Diastolic blood pressure 2023-12-28 09:00:00 81 mm[Hg] [facility] Body temperature 2023-12-28 08:13:00 37 Nano [facility] Body height 2023-12-28 08:13:[address] [facility] Body weight 2023-12-28 08:13:[address] [facility] BMI 2023-12-28 08:13:00 37.08 kg/m2 [facility] Systolic blood pressure 2023-11-06 08:00:00 117 mm[Hg] [facility] Diastolic blood pressure 2023-11-06 08:00:00 75 mm[Hg] [facility] Heart rate 2023-11-06 08:00:00 80 /min [facility] Body temperature 2023-11-06 08:00:00 37 Nano [facility] Respiratory rate 2023-11-06 08:00:00 18 /min [facility] Oxygen saturation in Arterial blood by Pulse oximetry 2023-11-06 08:00:00 97 /min [facility] Body height 2023-11-06 05:50:[address] [facility] Body weight 2023-11-06 05:50:[address] [facility] BMI 2023-11-06 05:50:00 37.98 kg/m2 [facility] Systolic blood pressure 2023-11-01 10:00:00 142 mm[Hg] [facility] Diastolic blood pressure 2023-11-01 10:00:00 81 mm[Hg] [facility] Heart rate 2023-11-01 10:00:00 79 /min [facility] Body temperature 2023-11-01 10:00:00 37.17 Nano [facility] Respiratory rate 2023-11-01 10:00:00 16 /min [facility] Oxygen saturation in Arterial blood by Pulse oximetry 2023-11-01 10:00:00 94 /min [facility] Body height 2023-11-01 05:37:[address] [facility] Body weight 2023-11-01 05:37:[address] [facility] BMI 2023-11-01 05:37:00 37.25 kg/m2 [facility] Systolic blood pressure 2023-10-23 08:00:00 140 mm[Hg] [facility] Diastolic blood pressure 2023-10-23 08:00:00 88 mm[Hg] [facility] Heart rate 2023-10-23 08:00:00 89 /min [facility] Oxygen saturation in Arterial blood by Pulse oximetry 2023-10-23 08:00:00 94 /min [facility] Respiratory rate 2023-10-23 05:53:00 16 /min [facility] Body temperature 2023-10-23 05:45:00 36.72 Nano [facility] Body height 2023-10-23 05:45:[address] [facility] Body weight 2023-10-23 05:45:[address] [facility] BMI 2023-10-23 05:45:00 38.01 kg/m2 [facility] Systolic blood pressure 2023-09-26 08:00:00 159 mm[Hg] [facility] Diastolic blood pressure 2023-09-26 08:00:00 80 mm[Hg] [facility] Heart rate 2023-09-26 08:00:00 75 /min [facility] Respiratory rate 2023-09-26 08:00:00 20 /min [facility] Oxygen saturation in Arterial blood by Pulse oximetry 2023-09-26 08:00:00 94 /min [facility] Body temperature 2023-09-26 05:02:00 36.72 Nano [facility] Systolic blood pressure 2023-08-24 08:14:00 140 mm[Hg] [facility] Diastolic blood pressure 2023-08-24 08:14:00 73 mm[Hg] [facility] Heart rate 2023-08-24 08:14:00 75 /min [facility] Body temperature 2023-08-24 08:14:00 36.67 Nano [facility] Respiratory rate 2023-08-24 08:14:00 18 /min [facility] Oxygen saturation in Arterial blood by Pulse oximetry 2023-08-24 08:14:00 96 /min [facility] Body height 2023-08-24 03:41:[address] [facility] Body weight 2023-08-24 03:41:[address] [facility] BMI 2023-08-24 03:41:00 38.01 kg/m2 [facility] Systolic blood pressure 2023-07-07 10:53:00 140 mm[Hg] [facility] Diastolic blood pressure 2023-07-07 10:53:00 83 mm[Hg] [facility] Heart rate 2023-07-07 10:53:00 75 /min [facility] Respiratory rate 2023-07-07 10:53:00 16 /min [facility] Oxygen saturation in Arterial blood by Pulse oximetry 2023-07-07 10:53:00 97 /min [facility] Body temperature 2023-07-07 08:57:00 36.44 Nano [facility] Body height 2023-07-07 08:57:[address] [facility] Body weight 2023-07-07 08:57:[address] [facility] BMI 2023-07-07 08:57:00 38.01 kg/m2 [facility] Systolic blood pressure 2023-05-26 03:30:00 140 mm[Hg] [facility] Diastolic blood pressure 2023-05-26 03:30:00 78 mm[Hg] [facility] Heart rate 2023-05-26 03:30:00 80 /min [facility] Respiratory rate 2023-05-26 03:30:00 23 /min [facility] Oxygen saturation in Arterial blood by Pulse oximetry 2023-05-26 03:30:00 94 /min [facility] Body temperature 2023-05-26 03:00:00 36.78 Nano [facility] Body weight 2023-05-25 22:19:00 121.564 kg [facility] BMI 2023-05-25 22:19:00 40.75 kg/m2 [facility] Systolic blood pressure 2023-02-21 01:51:00 123 mm[Hg] [facility] Diastolic blood pressure 2023-02-21 01:51:00 74 mm[Hg] [facility] Heart rate 2023-02-20 23:03:00 95 /min [facility] Body temperature 2023-02-20 23:03:00 38.28 Nano [facility] Respiratory rate 2023-02-20 23:03:00 18 /min [facility] Body height 2023-02-20 23:03:00 172.7 cm [facility] Body weight 2023-02-20 23:03:00 121.564 kg [facility] BMI 2023-02-20 23:03:00 40.75 kg/m2 [facility] Oxygen saturation in Arterial blood by Pulse oximetry 2023-02-20 23:03:00 97 /min [facility] Systolic blood pressure 2022-12-29 10:00:00 142 mm[Hg] [facility] Diastolic blood pressure 2022-12-29 10:00:00 78 mm[Hg] [facility] Heart rate 2022-12-29 10:00:00 71 /min [facility] Oxygen saturation in Arterial blood by Pulse oximetry 2022-12-29 09:57:00 96 /min [facility] Body temperature 2022-12-29 06:35:00 36.89 Nano [facility] Respiratory rate 2022-12-29 06:35:00 20 /min [facility] Body height 2022-12-29 06:35:00 172.7 cm [facility] Body weight 2022-12-29 06:35:00 121.745 kg [facility] BMI 2022-12-29 06:35:00 40.81 kg/m2 [facility] Systolic blood pressure 2022-11-21 08:14:00 162 mm[Hg] [facility] Diastolic blood pressure 2022-11-21 08:14:00 101 mm[Hg] [facility] Heart rate 2022-11-21 08:09:00 92 /min [facility] Body temperature 2022-11-21 08:09:00 37.11 Nano [facility] Respiratory rate 2022-11-21 08:09:00 16 /min [facility] Body height 2022-11-21 08:09:00 172.7 cm [facility] Body weight 2022-11-21 08:09:[address] [facility] BMI 2022-11-21 08:09:00 38.77 kg/m2 [facility] Oxygen saturation in Arterial blood by Pulse oximetry 2022-11-21 08:09:00 97 /min [facility] Systolic blood pressure 2022-10-29 07:34:00 167 mm[Hg] [facility] Diastolic blood pressure 2022-10-29 07:34:00 97 mm[Hg] [facility] Heart rate 2022-10-29 07:34:00 93 /min [facility] Body temperature 2022-10-29 07:34:00 37.39 Nano [facility] Respiratory rate 2022-10-29 07:34:00 20 /min [facility] Body height 2022-10-29 07:34:[address] [facility] Body weight 2022-10-29 07:34:[address] [facility] BMI 2022-10-29 07:34:00 38.01 kg/m2 [facility] Oxygen saturation in Arterial blood by Pulse oximetry 2022-10-29 07:34:00 97 /min [facility] Systolic blood pressure 2022-06-02 05:00:00 165 mm[Hg] [facility] Diastolic blood pressure 2022-06-02 05:00:00 119 mm[Hg] [facility] Heart rate 2022-06-02 05:00:00 74 /min [facility] Respiratory rate 2022-06-02 05:00:00 23 /min [facility] Oxygen saturation in Arterial blood by Pulse oximetry 2022-06-02 05:00:00 95 /min [facility] Body temperature 2022-06-02 04:41:00 36.67 Nano [facility] Systolic blood pressure 2022-05-28 18:36:21 147 mm[Hg] [facility] Diastolic blood pressure 2022-05-28 18:36:21 97 mm[Hg] [facility] Heart rate 2022-05-28 18:36:21 62 /min [facility] Respiratory rate 2022-05-28 18:36:21 18 /min [facility] Oxygen saturation in Arterial blood by Pulse oximetry 2022-05-28 18:36:21 96 /min [facility] Body temperature 2022-05-28 15:06:00 37.22 Nano [facility] Body height 2022-05-28 15:06:[address] [facility] Body weight 2022-05-28 15:06:[address] [facility] BMI 2022-05-28 15:06:00 41.81 kg/m2 [facility] Systolic blood pressure 2022-05-06 06:42:00 137 mm[Hg] [facility] Diastolic blood pressure 2022-05-06 06:42:00 90 mm[Hg] [facility] Heart rate 2022-05-06 06:42:00 81 /min [facility] Respiratory rate 2022-05-06 06:42:00 16 /min [facility] Oxygen saturation in Arterial blood by Pulse oximetry 2022-05-06 06:42:00 94 /min [facility] Body temperature 2022-05-06 03:30:00 36.78 Nano [facility] Body height 2022-05-06 03:30:[address] [facility] Body weight 2022-05-06 03:30:[address] [facility] BMI 2022-05-06 03:30:00 39.53 kg/m2 [facility] Systolic blood pressure 2022-05-01 13:30:00 147 mm[Hg] [facility] Diastolic blood pressure 2022-05-01 13:30:00 91 mm[Hg] [facility] Heart rate 2022-05-01 13:30:00 73 /min [facility] Respiratory rate 2022-05-01 13:30:00 17 /min [facility] Oxygen saturation in Arterial blood by Pulse oximetry 2022-05-01 13:30:00 95 /min [facility] Body temperature 2022-05-01 12:28:00 36.78 Nano [facility] Body weight 2022-05-01 12:28:[address] [facility] BMI 2022-05-01 12:28:00 40.75 kg/m2 [facility] Systolic blood pressure 2022-02-08 07:00:00 133 mm[Hg] [facility] Diastolic blood pressure 2022-02-08 07:00:00 94 mm[Hg] [facility] Heart rate 2022-02-08 07:00:00 77 /min [facility] Respiratory rate 2022-02-08 07:00:00 21 /min [facility] Oxygen saturation in Arterial blood by Pulse oximetry 2022-02-08 07:00:00 95 /min [facility] Body temperature 2022-02-08 06:04:00 36.5 Nano [facility] Body height 2022-02-08 06:04:[address] [facility] Body weight 2022-02-08 06:04:[address] [facility] BMI 2022-02-08 06:04:00 38.01 kg/m2 [facility] Systolic blood pressure 2021-10-14 22:36:00 152 mm[Hg] [facility] Diastolic blood pressure 2021-10-14 22:36:00 87 mm[Hg] [facility] Heart rate 2021-10-14 22:36:00 95 /min [facility] Body temperature 2021-10-14 22:36:00 36.94 [facility] Respiratory rate 2021-10-14 22:36:00 18 /min [facility] Body weight 2021-10-14 22:36:00 122.29 kg [facility] BMI 2021-10-14 22:36:00 40.99 kg/m2 [facility] Oxygen saturation in Arterial blood by Pulse oximetry 2021-10-14 22:36:00 97 /min [facility] Systolic blood pressure 2021-05-15 17:15:00 148 mm[Hg] [facility] Diastolic blood pressure 2021-05-15 17:15:00 84 mm[Hg] [facility] Heart rate 2021-05-15 17:15:00 99 /min [facility] Body temperature 2021-05-15 17:15:00 36.5 [facility] Respiratory rate 2021-05-15 17:15:00 20 /min [facility] Body weight 2021-05-15 17:15:00 117.073 kg [facility] BMI 2021-05-15 17:15:00 39.24 kg/m2 [facility] Oxygen saturation in Arterial blood by Pulse oximetry 2021-05-15 17:15:00 97 /min [facility] Systolic blood pressure 2021-05-08 18:10:00 156 mm[Hg] [facility] Diastolic blood pressure 2021-05-08 18:10:00 95 mm[Hg] [facility] Heart rate 2021-05-08 18:10:00 99 /min [facility] Body temperature 2021-05-08 18:10:00 36.06 [facility] Respiratory rate 2021-05-08 18:10:00 18 /min [facility] Body weight 2021-05-08 18:10:00 116.756 kg [facility] BMI 2021-05-08 18:10:00 39.14 kg/m2 [facility] Oxygen saturation in Arterial blood by Pulse oximetry 2021-05-08 18:10:00 96 /min [facility] Systolic blood pressure 2021-05-06 09:26:00 145 mm[Hg] [facility] Diastolic blood pressure 2021-05-06 09:26:00 93 mm[Hg] [facility] Heart rate 2021-05-06 09:26:00 79 /min [facility] Respiratory rate 2021-05-06 09:26:00 20 /min [facility] Oxygen saturation in Arterial blood by Pulse oximetry 2021-05-06 09:26:00 97 /min [facility] Body temperature 2021-05-06 07:56:00 37.11 [facility] Body height 2021-05-06 07:56:[address] [facility] Body weight 2021-05-06 07:56:[address] [facility] BMI 2021-05-06 07:56:00 39.70 kg/m2 [facility] Systolic blood pressure 2021-03-15 06:19:00 127 mm[Hg] [facility] Diastolic blood pressure 2021-03-15 06:19:00 79 mm[Hg] [facility] Heart rate 2021-03-15 06:19:00 78 /min [facility] Respiratory rate 2021-03-15 06:19:00 23 /min [facility] Oxygen saturation in Arterial blood by Pulse oximetry 2021-03-15 06:19:00 96 /min [facility] Body temperature 2021-03-15 03:05:45 37 [facility] Body weight 2021-03-15 02:46:[address] [facility] BMI 2021-03-15 02:46:00 38.47 kg/m2 [facility] Systolic blood pressure 2021-03-15 06:19:00 127 mm[Hg] [facility] Diastolic blood pressure 2021-03-15 06:19:00 79 mm[Hg] [facility] Heart rate 2021-03-15 06:19:00 78 /min [facility] Respiratory rate 2021-03-15 06:19:00 23 /min [facility] Oxygen saturation in Arterial blood by Pulse oximetry 2021-03-15 06:19:00 96 /min [facility] Body temperature 2021-03-15 03:05:45 37 [facility] Body weight 2021-03-15 02:46:00 114.76 kg [facility] BMI 2021-03-15 02:46:00 38.47 kg/m2 [facility] Systolic blood pressure 2020-09-09 00:10:00 124 mm[Hg] [facility] Diastolic blood pressure 2020-09-09 00:10:00 77 mm[Hg] [facility] Heart rate 2020-09-09 00:10:00 83 /min [facility] Respiratory rate 2020-09-09 00:10:00 16 /min [facility] Oxygen saturation in Arterial blood by Pulse oximetry 2020-09-09 00:10:00 97 /min [facility] Body temperature 2020-09-08 23:14:00 37.39 [facility] Body weight 2020-09-08 22:49:[address] [facility] BMI 2020-09-08 22:49:00 36.19 kg/m2 [facility] Systolic blood pressure 2020-09-09 00:10:00 124 mm[Hg] [facility] Diastolic blood pressure 2020-09-09 00:10:00 77 mm[Hg] [facility] Heart rate 2020-09-09 00:10:00 83 /min [facility] Respiratory rate 2020-09-09 00:10:00 16 /min [facility] Oxygen saturation in Arterial blood by Pulse oximetry 2020-09-09 00:10:00 97 /min [facility] Body temperature 2020-09-08 23:14:00 37.39 [facility] Body weight 2020-09-08 22:49:00 107.956 kg [facility] BMI 2020-09-08 22:49:00 36.19 kg/m2 [facility] Systolic blood pressure 2020-09-06 19:30:00 115 mm[Hg] [facility] Diastolic blood pressure 2020-09-06 19:30:00 65 mm[Hg] [facility] Heart rate 2020-09-06 19:30:00 67 /min [facility] Body temperature 2020-09-06 19:30:00 36.83 [facility] Respiratory rate 2020-09-06 19:30:00 19 /min [facility] Oxygen saturation in Arterial blood by Pulse oximetry 2020-09-06 19:30:00 99 /min [facility] Body weight 2020-09-06 15:41:[address] [facility] BMI 2020-09-06 15:41:00 36.19 kg/m2 [facility] Systolic blood pressure 2020-09-06 19:30:00 115 mm[Hg] [facility] Diastolic blood pressure 2020-09-06 19:30:00 65 mm[Hg] [facility] Heart rate 2020-09-06 19:30:00 67 /min [facility] Body temperature 2020-09-06 19:30:00 36.83 [facility] Respiratory rate 2020-09-06 19:30:00 19 /min [facility] Oxygen saturation in Arterial blood by Pulse oximetry 2020-09-06 19:30:00 99 /min [facility] Body weight 2020-09-06 15:41:[address] [facility] BMI 2020-09-06 15:41:00 36.19 kg/m2 [facility] Systolic blood pressure 2020-08-30 13:11:00 136 mm[Hg] [facility] Diastolic blood pressure 2020-08-30 13:11:00 77 mm[Hg] [facility] Heart rate 2020-08-30 13:11:00 74 /min [facility] Body temperature 2020-08-30 13:11:00 36.5 [facility] Respiratory rate 2020-08-30 13:11:00 18 /min [facility] Oxygen saturation in Arterial blood by Pulse oximetry 2020-08-30 13:11:00 96 /min [facility] Body weight 2020-08-30 09:00:[address] [facility] BMI 2020-08-30 09:00:00 36.19 kg/m2 [facility] Body height 2020-08-27 07:49:00 172.7 cm [facility] Systolic blood pressure 2020-08-30 13:11:00 136 mm[Hg] [facility] Diastolic blood pressure 2020-08-30 13:11:00 77 mm[Hg] [facility] Heart rate 2020-08-30 13:11:00 74 /[facility] 2020-08-30 13:11:00 36.5 [facility] Respiratory rate 2020-08-30 13:11:00 18 /min [facility] Oxygen saturation in Arterial blood by Pulse oximetry 2020-08-30 13:11:00 96 /min [facility] Body weight 2020-08-30 09:00:[address] [facility] BMI 2020-08-30 09:00:00 36.19 kg/m2 [facility] Body height 2020-08-27 07:49:[address] [facility] Systolic blood pressure 2020-07-10 05:30:00 123 mm[Hg] [facility] Diastolic blood pressure 2020-07-10 05:30:00 77 mm[Hg] [facility] Heart rate 2020-07-10 05:30:00 75 /min [facility] 2020-07-10 05:30:00 19 /min [facility] Oxygen saturation in Arterial blood by Pulse oximetry 2020-07-10 05:30:00 97 /min [facility] Body temperature 2020-07-10 00:48:00 37.39 [facility] Body height 2020-07-10 00:48:00 172.7 cm [facility] Body weight 2020-07-10 00:43:[address] [facility] BMI 2020-07-10 00:43:00 33.45 kg/m2 [facility] Systolic blood pressure 2020-07-10 05:30:00 123 mm[Hg] [facility] Diastolic blood pressure 2020-07-10 05:30:00 77 mm[Hg] [facility] Heart rate 2020-07-10 05:30:00 75 /min [facility] Respiratory rate 2020-07-10 05:30:00 19 /min [facility] Oxygen saturation in Arterial blood by Pulse oximetry 2020-07-10 05:30:00 97 /min [facility] Body temperature 2020-07-10 00:48:00 37.39 [facility] Body height 2020-07-10 00:48:[address] [facility] Body weight 2020-07-10 00:43:[address] [facility] BMI 2020-07-10 00:43:00 33.45 kg/m2 [facility] Procedures Procedure Date / Time Performed Performing Clinician Source URINALYSIS 2024-02-04 18:16:00 [facility] ABDOMEN PELVIS W CONTRAST 2024-02-04 16:52:00 Babs Bustamante [facility] LIPASE 2024-02-04 16:00:00 [facility] COMP. METABOLIC PANEL ([id number]) 2024-02-04 16:00:00 Irina Bustamanteherine [facility] CBC WITH DIFF 2024-02-04 16:00:[address] [facility] CONSENT/REFUSAL FOR DIAGNOSIS AND TREATMENT 2023-12-28 08:06:27 Doctor Unassigned, [place] [facility] EKG-12 LEAD 2023-11-06 08:26:13 Nidia Solano [facility] LIPASE 2023-11-06 06:15:00 Nidia Solano [facility] MAGNESIUM 2023-11-06 06:15:00 [facility] COMP. METABOLIC PANEL ([id number]) 2023-11-06 06:15:00 Nidia Solano [facility] CBC WITH DIFF 2023-11-06 06:15:[address] [facility] URINALYSIS 2023-11-06 06:15:00 Nidia Solano [facility] CONSENT/REFUSAL FOR DIAGNOSIS AND TREATMENT 2023-11-06 05:40:44 Doctor Unassigned, [place] [facility] CT ABDOMEN PELVIS W CONTRAST 2023-11-01 08:32:40 Jose Francisco Walters [facility] LIPASE 2023-11-01 05:45:00 Jose Francisco Walters [facility] COMP. METABOLIC PANEL ([id number]) 2023-11-01 05:45:00 Jose Francisco Walters [facility] CBC WITH DIFF 2023-11-01 05:45:00 Jose Francisco Walters [facility] URINALYSIS 2023-11-01 05:45:00 Jose Francisco Walters [facility] POCT GLUCOSE (AUTOMATED) 2023-11-01 05:41:00 Lena Walters [facility] CONSENT/REFUSAL FOR DIAGNOSIS AND TREATMENT 2023-11-01 05:29:45 Doctor Unassigned, [place] [facility] CT ABDOMEN PELVIS W CONTRAST 2023-10-23 07:06:44 Chapito Contreras [facility] LIPASE 2023-10-23 05:50:[address] [facility] COMP. METABOLIC PANEL ([id number]) 2023-10-23 05:50:00 Chapito Contreras [facility] CBC WITH DIFF 2023-10-23 05:50:[address] [facility] URINALYSIS 2023-10-23 05:50:[address] [facility] CONSENT/REFUSAL FOR DIAGNOSIS AND TREATMENT 2023-10-23 05:34:08 Doctor Unassigned, [place] [facility] URINALYSIS 2023-09-26 06:12:00 Madeline Tam [facility] LIPASE 2023-09-26 05:12:00 Jose [facility] HEPATIC FUNCTION PANEL ([id number]) (ALB,T.PRO,BILI T,BU/BC,ALT,AST,ALK PHOS) 2023-09-26 05:12:00 Jose [facility] BASIC METABOLIC PANEL (NA, K, CL, CO2, GLUCOSE, BUN, CREATININE, CA) 2023-09-26 05:12:00 Jose [facility] CBC WITH DIFF 2023-09-26 05:12:00 Jose [facility] NOTICE OF PRIVACY PRACTICES 2023-09-26 04:50:48 Doctor Unassigned, [place] [facility] CONSENT/REFUSAL FOR DIAGNOSIS AND TREATMENT 2023-09-26 04:50:08 Doctor Unassigned, [place] [facility] CT CHEST PULMONARY ANGIOGRAM 2023-08-24 08:02:29 Patrick Vergara [facility] XR CHEST 1 VW 2023-08-24 04:38:16 Patrick Vergara [facility] TROPONIN I 2023-08-24 04:29:00 Patrick Vergara [facility] COMP. METABOLIC PANEL ([id number]) 2023-08-24 04:29:00 Patrick Vergara [facility] CBC WITH DIFF 2023-08-24 04:29:00 Patrick Vergara [facility] CONSENT/REFUSAL FOR DIAGNOSIS AND TREATMENT 2023-08-24 03:41:11 Doctor Unassigned, [place] [facility] LIPASE 2023-07-07 09:22:[address] [facility] TROPONIN I 2023-07-07 09:22:[address] [facility] COMP. METABOLIC PANEL ([id number]) 2023-07-07 09:22:00 Chapito Contreras [facility] CBC WITH DIFF 2023-07-07 09:22:[address] [facility] URINALYSIS 2023-07-07 09:22:[address] [facility] CONSENT/REFUSAL FOR DIAGNOSIS AND TREATMENT 2023-07-07 08:49:51 Doctor Unassigned, [place] [facility] POCT GLUCOSE (AUTOMATED) 2023-05-26 02:17:00 Nidia Solano [facility] URINALYSIS 2023-05-26 01:24:00 Nidia Solanoe [facility] POCT GLUCOSE (AUTOMATED) 2023-05-26 01:22:00 Nidia Solano [facility] TROPONIN I 2023-05-26 00:54:00 Nidia Solano [facility] COVID-19 (ID NOW RAPID TESTING) 2023-05-26 00:54:00 Nidia Solano [facility] ASSIGNMENT OF BENEFITS 2023-05-26 00:29:59 Docto r Unassigned, [place] [facility] XR CHEST 1 VW 2023-05-25 22:41:21 Nidia Solano [facility] LIPASE 2023-05-25 22:33:00 Nidia Solano [facility] MAGNESIUM 2023-05-25 22:33:00 Nidia Solano [facility] TROPONIN I 2023-05-25 22:33:00 Nidia Solano [facility] COMP. METABOLIC PANEL ([id number]) 2023-05-25 22:33:00 Nidia Solano [facility] CBC WITH DIFF 2023-05-25 22:33:[address] [facility] N-TERMINAL PRO-BNP 2023-05-25 22:33:00 Nidia Solano Haily [facility] CONSENT/REFUSAL FOR DIAGNOSIS AND TREATMENT 2023-05-25 22:07:05 Doctor Unassigned, [place] [facility] COVID-19 (ID NOW RAPID TESTING) 2023-02-20 23:30:00 Monroe Escobar [facility] CONSENT/REFUSAL FOR DIAGNOSIS AND TREATMENT 2023-02-20 22:54:00 Doctor Unassigned, [place] [facility] CT ABDOMEN PELVIS W CONTRAST 2022-12-29 08:28:18 Chapito Contreras [facility] LIPASE 2022-12-29 07:11:[address] [facility] COMP. METABOLIC PANEL ([id number]) 2022-12-29 07:11:00 Chapito Contreras [facility] CBC WITH DIFF 2022-12-29 07:11:[address] [facility] URINALYSIS 2022-12-29 07:11:[address] [facility] CONSENT/REFUSAL FOR DIAGNOSIS AND TREATMENT 2022-12-29 06:24:27 Doctor Unassigned, [place] [facility] CONSENT/REFUSAL FOR DIAGNOSIS AND TREATMENT 2022-11-21 08:05:19 Doctor Unassigned, [place] [facility] RAPID STREP SCREEN FOR GROUP A 2022-10-29 07:36:00 Marie Morales [facility] CONSENT/REFUSAL FOR DIAGNOSIS AND TREATMENT 2022-10-29 07:23:03 Doctor Unassigned, [place] [facility] CONSENT/REFUSAL FOR DIAGNOSIS AND TREATMENT 2022-06-02 04:34:17 Doctor Unassigned, [place] [facility] FREE T4 2022-05-28 16:06:00 [facility] THYROID STIMULATING HORMONE 2022-05-28 16:06:00 Lala Clarke [facility] COMP. METABOLIC PANEL ([id number]) 2022-05-28 16:06:00 Singer Lala [facility] CBC WITH DIFF 2022-05-28 16:06:[address] [facility] FREE T3 2022-05-28 16:06:00 [facility]ala [facility] CONSENT/REFUSAL FOR DIAGNOSIS AND TREATMENT 2022-05-28 14:55:38 Doctor Unassigned, [place] [facility] CT ABDOMEN PELVIS W CONTRAST 2022-05-06 06:06:56 Nidia Solano [facility] LIPASE 2022-05-06 05:17:00 Nidia Solano [facility] MAGNESIUM 2022-05-06 05:17:00 Nidia Solano [facility] TROPONIN I 2022-05-06 05:17:00 Nidia Solano [facility] COMP. METABOLIC PANEL ([id number]) 2022-05-06 05:17:00 Nidia Solano [facility] CBC WITH DIFF 2022-05-06 05:17:00 Nidia Solano [facility] URINALYSIS 2022-05-06 05:17:00 Nidia Solano [facility] RAPID INFLUENZA A/B 2022-05-06 03:48:00 Nidia Solano [facility] COVID-19 (ID NOW RAPID TESTING) 2022-05-06 03:48:00 Nidia Solano [facility] CONSENT/REFUSAL FOR DIAGNOSIS AND TREATMENT 2022-05-06 03:22:49 Doctor Unassigned, [place] [facility] COMP. METABOLIC PANEL ([id number]) 2022-05-01 12:42:00 Singer Lala [facility] CBC WITH DIFF 2022-05-01 12:42:00 Singer [facility] CONSENT/REFUSAL FOR DIAGNOSIS AND TREATMENT 2022-05-01 12:23:44 Doctor Unassigned, [place] [facility] URINALYSIS 2022-02-08 06:27:00 [facility] URINE DRUG (IMMUNOASSAY) - COMPREHENSIVE DRUG SCREEN W/O REFLEX 2022-02-08 06:27:00 Benjamin Ashford [facility] LIPASE 2022-02-08 06:15:00 Benjamin Ashford [facility] TROPONIN I 2022-02-08 06:15:00 Benjamin Ashford [facility] COMP. METABOLIC PANEL ([id number]) 2022-02-08 06:15:00 Benjamin Ashford [facility] ETHANOL 2022-02-08 06:15:00 Benjamin Ashford [facility] CBC WITH DIFF 2022-02-08 06:15:[address] [facility] PROTHROMBIN TIME / INR 2022-02-08 06:15:00 Jeremy Ashford [facility] ACTIVATED PARTIAL THRMPLAS ELAINE 2022-02-08 06:15:00 Benjamin Ashford [facility] N-TERMINAL PRO-BNP 2022-02-08 06:15:00 Benjamin Ashford [facility] NOTICE OF PRIVACY PRACTICES 2022-02-08 06:01:50 Doctor Unassigned, [place] [facility] CONSENT/REFUSAL FOR DIAGNOSIS AND TREATMENT 2022-02-08 05:59:20 Doctor Unassigned, [place] [facility] CT ABDOMEN PELVIS W CONTRAST 2021-10-15 00:40:39 Marie Morales [facility] LIPASE 2021-10-15 00:26:00 Marie Morales [facility] TROPONIN I 2021-10-15 00:26:00 Marie Morales [facility] COMP. METABOLIC PANEL ([id number]) 2021-10-15 00:26:00 Marie Morales [facility] CBC WITH DIFF 2021-10-15 00:26:00 Marie Morales [facility] NOTICE OF PRIVACY PRACTICES 2021-10-14 22:18:20 Doctor Unassigned, [place] [facility] CONSENT/REFUSAL FOR DIAGNOSIS AND TREATMENT 2021-10-14 22:17:56 Doctor Unassigned, [place] [facility] CT ABDOMEN PELVIS W CONTRAST 2021-03-15 04:54:23 Chapito Contreras [facility] COVID-19 (ID NOW RAPID TESTING) 2021-03-15 03:34:00 Chapito Contreras [facility] URINALYSIS 2021-03-15 03:16:[address] [facility] COMP. METABOLIC PANEL ([id number]) 2021-03-15 03:11:00 Chapito Contreras [facility] CBC WITH DIFF 2021-03-15 03:11:00 Chapito Contreras [facility] CONSENT/REFUSAL FOR DIAGNOSIS AND TREATMENT 2021-03-15 02:38:38 Doctor Unassigned, [place] [facility] LIPASE 2020-09-08 23:14:00 [facility] COMP. METABOLIC PANEL ([id number]) 2020-09-08 23:14:00 Singer [facility] CBC WITH DIFF 2020-09-08 23:14:00 [place] [facility] CONSENT/REFUSAL FOR DIAGNOSIS AND TREATMENT 2020-09-08 22:38:49 Doctor Unassigned, [place] [facility] CT ABDOMEN PELVIS W CONTRAST 2020-09-06 17:05:33 Nidia Solano [facility] LACTIC ACID WHOLE BLOOD 2020-09-06 16:31:00 Nidia Solano [facility] LIPASE 2020-09-06 16:11:00 Nidia Solano [facility] MAGNESIUM 2020-09-06 16:11:00 Nidia Solano [facility] COMP. METABOLIC PANEL ([id number]) 2020-09-06 16:11:00 Nidia Solano [facility] CBC WITH DIFF 2020-09-06 16:11:00 Nidia Solano [facility] NOTICE OF PRIVACY PRACTICES 2020-09-06 15:30:39 Doctor Unassigned, [place] [facility] CONSENT/REFUSAL FOR DIAGNOSIS AND TREATMENT 2020-09-06 15:30:28 Doctor Unassigned, [place] [facility] COMP. METABOLIC PANEL ([id number]) 2020-08-30 08:39:00 Babs Bustamante [facility] CBC WITH DIFF 2020-08-30 08:39:[address] [facility] US ABDOMEN COMPLETE 2020-08-28 18:11:06 Patrick No [facility] ECHO ROUTINE W/DOPPLER COLOR 2020-08-28 16:34:45 Gricelda No [facility] HEPATIC FUNCTION PANEL ([id number]) (ALB,T.PRO,BILI T,BU/BC,ALT,AST,ALK PHOS) 2020-08-28 10:16:00 Favio Cahng [facility] BASIC METABOLIC PANEL (NA, K, CL, CO2, GLUCOSE, BUN, CREATININE, CA) 2020-08-28 10:16:00 Oneal [facility] TROPONIN I 2020-08-27 18:11:00 Oneal [facility] POCT GLUCOSE (AUTOMATED) 2020-08-27 18:02:00 Clau No [facility] POCT GLUCOSE (AUTOMATED) 2020-08-27 13:49:00 Clau No [facility] TROPONIN I 2020-08-27 11:35:00 Oneal [facility] CT ABDOMEN PELVIS W WO CONTRAST 2020-08-27 07:38:49 Oneal [facility] COVID-19 (ID NOW RAPID TESTING) 2020-08-27 06:21:00 Dejon [facility] URINALYSIS 2020-08-27 06:20:00 [facility] ADC / LCC - DRUG SCREEN TRIAGE 2020-08-27 06:20:00 Dejon [facility] XR CHEST 1 VW 2020-08-27 06:05:[address] [facility] LIPASE 2020-08-27 05:58:00 [facility] TROPONIN I 2020-08-27 05:58:00 [facility] THYROID STIMULATING HORMONE 2020-08-27 05:58:00 Oneal [facility] HEPATIC FUNCTION PANEL ([id number]) (ALB,T.PRO,BILI T,BU/BC,ALT,AST,ALK PHOS) 2020-08-27 05:58:00 Benjamin Ashford [facility] BASIC METABOLIC PANEL (NA, K, CL, CO2, GLUCOSE, BUN, CREATININE, CA) 2020-08-27 05:58:00 Dejon [facility] LIPID PANEL ([id number])(TOTAL CHOLESTEROL, TRIGLYCERIDES, HDL) 2020-08-27 05:58:00 Oneal [facility] ETHANOL 2020-08-27 05:58:00 [facility] CBC WITH DIFF 2020-08-27 05:58:[address] [facility] [facility] PROTHROMBIN TIME / INR 2020-08-27 05:58:00 Jeremy Ashford [facility] ACTIVATED PARTIAL THRMPLAS ELAINE 2020-08-27 05:58:00 Benjamin Ashford [facility] EKG-12 LEAD 2020-08-27 05:54:03 Benjamin Ashford [facility] NOTICE OF PRIVACY PRACTICES 2020-08-27 05:44:26 Doctor Unassigned, [place] [facility] CONSENT/REFUSAL FOR DIAGNOSIS AND TREATMENT 2020-08-27 05:43:44 Doctor Unassigned, [place] [facility] CONSENT/REFUSAL FOR DIAGNOSIS AND TREATMENT 2020-08-27 05:43:43 Doctor Unassigned, [place] [facility] CT ABDOMEN PELVIS W CONTRAST 2020-07-10 05:12:21 Chapito Contreras [facility] TROPONIN I 2020-07-10 03:49:[address] [facility] ADC / LCC - DRUG SCREEN TRIAGE 2020-07-10 03:13:00 Chapito Contreras [facility] XR CHEST 1 VW 2020-07-10 01:05:[address] [facility] LIPASE 2020-07-10 00:55:[address] [facility] TROPONIN I 2020-07-10 00:55:[address] [facility] COMP. METABOLIC PANEL (50671) 2020-07-10 00:55:00 Chapito Contreras [facility] CBC WITH DIFF 2020-07-10 00:55:[address] [facility] PROTHROMBIN TIME / INR 2020-07-10 00:55:00 Yesica Contreras [facility] D-DIMER 2020-07-10 00:55:[address] [facility] COVID-19 (ID NOW RAPID TESTING) 2020-07-10 00:55:00 Chapito Contreras [facility] EKG-12 LEAD 2020-07-10 00:52:[address] [facility] Encounters Start Date/Time End Date/Time Encounter Type Admission Type Attending [facility] Care Facility Care Department Encounter ID Source 2024-02-09 00:00:00 2024-03-13 18:08:36 Patient Secure Msg Doctor Unassigned, [place] [facility] 1.2.840.114 350.1.13.10 4.2.7.2.686 [id number] [facility] 2024-02-04 10:45:00 2024-02-04 14:36:00 Emergency X BABS BUSTAMANTE [facility] [id number] [facility] 2024-02-04 10:45:00 2024-02-04 14:36:00 Emergency Babs Bustamante [facility] 1.2.840.114 350.1.13.10 4.2.7.2.686 [id number] [id number] [facility] 2023-12-28 03:16:00 2023-12-28 04:32:00 Emergency X CHAPITO CONTRERAS WAKILI [facility] E[facility] [id number] [facility] 2023-12-28 03:16:00 2023-12-28 04:32:00 Emergency Chapito Contreras [facility] 1.2.840.114 350.1.13.10 4.2.7.2.686 [id number] [facility] 2023-11-05 23:52:00 2023-11-06 02:37:00 Emergency X Nidia SOLANO K [facility] E[facility] [id number] [facility] 2023-11-05 23:52:00 2023-11-06 02:37:00 Emergency Nidia Solano [facility] 1.2840.114 350.1.13.10 4.2.7.2.686 [id number] [id number] [facility] 2023-10-31 23:33:00 2023-11-01 04:19:00 Emergency X JOSE FRANCISCO WALTERS [facility] ERT [id number] [facility] 2023-10-31 23:33:00 2023-11-01 04:19:00 Emergency Jose Francisco Walters [facility] 1.2840.114 350.1.13.10 4.2.7.2.686 [id number] [id number] [facility] 2023-10-22 23:39:00 2023-10-23 02:31:00 Emergency X CHAPITO CONTRERAS [facility] ERT [id number] [facility] 2023-10-22 23:39:00 2023-10-23 02:31:00 Emergency Chapito Contreras Clau [facility] 1.2840.114 350.1.13.10 4.2.7.2.686 [id number] [facility] 2023-09-25 23:04:00 2023-09-26 02:30:00 Emergency X MADELINE TAM HEE-KWANG [facility] ERT [id number] [facility] 2023-09-25 23:04:00 2023-09-26 02:30:00 Emergency Madeline Tam [facility] 1.2840.114 350.1.13.10 4.2.7.2.686 [id number] [id number] [facility] 2023-08-25 00:00:00 2023-08-25 00:00:00 Patient Secure Msg Doctor Unassigned, [place] [facility] 1.2840.114 350.1.13.10 4.2.7.2.686 [id number] [facility] 2023-08-23 22:43:00 2023-08-24 02:41:00 Emergency Patrick Vergara [facility] 1.2.840.114 350.1.13.10 4.2.7.2.686 [id number] [id number] [facility] 2023-08-23 22:43:00 2023-08-24 02:41:00 Emergency X PATRICK VERGARA [facility] E[facility] [id number] [facility] 2023-07-07 03:51:00 2023-07-07 05:56:00 Emergency X CHAPITO CONTRERAS [facility] ERT [id number] [facility] 2023-07-07 03:51:00 2023-07-07 05:56:00 Emergency Chapito Contreras [facility] 1.2.840.114 350.1.13.10 4.2.7.2.686 [id number] [id number] [facility] 2023-05-25 17:20:00 2023-05-25 22:37:00 Emergency X Nidia SOLANO [facility] E[facility] [id number] [facility] 2023-05-25 17:20:00 2023-05-25 22:37:00 Emergency Nidia Solanoge [facility] 1.2.840.114 350.1.13.10 4.2.7.2.686 [id number] [id number] [facility] 2023-02-20 18:06:00 2023-02-20 21:03:00 Emergency X MONROE ESCOBAR TIMOTHY [facility] ERT [id number] [facility] 2023-02-20 18:06:00 2023-02-20 21:03:00 Emergency Monroe Escobar [facility] 1.2.840.114 350.1.13.10 4.2.7.2.686 [id number] [id number] [facility] 2023-02-20 00:00:00 2023-02-20 00:00:00 Orders Only Doctor Unassigned, [place] [facility] 1.2.840.114 350.1.13.10 4.2.7.2.686 [id number] [facility] 2022-12-29 00:24:00 2022-12-29 05:29:00 Emergency X CHAPITO CONTRERAS [facility] ERT [id number] [facility] 2022-12-29 00:24:00 2022-12-29 05:29:00 Emergency Chapito Contreras [facility] 1.2.840.114 350.1.13.10 4.2.7.2.686 [id number] [facility] 2022-11-21 02:14:00 2022-11-21 03:04:00 Emergency X PATRICK VERGARA [facility] [id number] [facility] 2022-11-21 02:14:00 2022-11-21 03:04:00 Emergency Obdulia Patrick Clau [facility] 1.2.840.114 350.1.13.10 4.2.7.2.686 [id number] [id number] [facility] 2022-10-29 01:37:00 2022-10-29 02:25:00 Emergency X MARIE MORALES [facility] ERT [id number] [facility] 2022-10-29 01:37:00 2022-10-29 02:25:00 Emergency Marie Morales [facility] 1..840.114 350.1.13.10 4.2.7.2.686 [id number] [id number] [facility] 2022-06-01 23:34:00 2022-06-02 00:39:00 Emergency X LALA CLARKE [facility] ERT [id number] [facility] 2022-06-01 23:34:2022-06-02 00:39:00 Emergency Lala Clarke [facility] 1.2.840.114 350.1.13.10 4.2.7.2.686 [id number] [id number] [facility] 2022-05-28 11:00:00 2022-05-28 13:39:00 Emergency X LALA CLARKE [facility] E[facility] [id number] [facility] 2022-05-28 11:00:00 2022-05-28 13:39:00 Emergency Lala Clarke [facility] 1.2.840.114 350.1.13.10 4.2.7.2.686 [id number] [id number] [facility] 2022-05-05 22:33:00 2022-05-06 01:49:00 Emergency X Nidia SOLANO [facility] E[facility] [id number] [facility] 2022-05-05 22:33:00 2022-05-06 01:49:00 [facility] 1.2.840.114 350.1.13.10 4.2.7.2.686 [id number] [id number] [facility] 2022-05-01 07:33:00 2022-05-01 09:07:00 Emergency X LALA CLARKE [facility] [id number] [facility] 2022-05-01 07:33:00 2022-05-01 09:07:00 Emergency Lala Clarke [facility] 1.2.840.114 350.1.13.10 4.2.7.2.686 [id number] [id number] [facility] 2022-02-08 01:00:00 2022-02-08 03:03:00 Emergency X DEJON BENJAMIN [facility] E[facility] [id number] [facility] 2022-02-08 01:00:00 2022-02-08 03:03:00 Emergency Benjamin Ashford [facility] 1.2.840.114 350.1.13.10 4.2.7.2.686 [id number] [id number] [facility] 2021-10-14 16:40:00 2021-10-14 19:30:00 Emergency MARIE CHATTERJEE [facility] [id number] [facility] 2021-10-14 16:40:00 2021-10-14 19:30:00 Emergency Marie Morales [facility] 1.2.840.114 350.1.13.10 4.2.7.2.686 [id number] [id number] [facility] 2021-05-15 12:11:58 2021-05-15 23:59:00 Hospital Encounter Geoff Cardona [facility] 1.2.840.114 350.1.13.10 4.2.7.2.686 [id number] [facility] 2021-05-15 12:30:00 2021-05-15 12:30:00 Outpatient R GEOFF CARDONA [facility] [id number] [facility] 2021-05-08 12:30:00 2021-05-08 23:59:00 Hospital Encounter Kiki Mathur [facility] 1.2.840.114 350.1.13.10 4.2.7.2.686 [id number] [facility] 2021-05-08 12:30:00 2021-05-08 12:30:00 Outpatient R KIKI MATHUR [facility] [id number] [facility] 2021-05-06 03:01:00 2021-05-06 04:28:00 Emergency ClarkeLala [facility] 1.2.840.114 350.1.13.10 4.2.7.2.686 [id number] [id number] [facility] 2021-05-06 03:01:00 2021-05-06 04:28:00 Emergency LALA MEDRANO [facility] ERT [id number] [facility] 2021-03-14 21:49:00 2021-03-15 01:22:00 Emergency Chapito Contreras [facility] 1.2.840.114 350.1.13.10 4.2.7.2.686 [id number] [id number] [facility] 2021-03-14 21:49:00 2021-03-15 01:22:00 Emergency Chapito Contreras [facility] 1.2.840.114 350.1.13.10 4.2.7.2.686 [id number] 2021-03-14 21:49:00 2021-03-14 21:49:00 Emergency CHAPITO VELASQUEZ [facility] ERT [id number] [facility] 2020-09-08 16:52:00 2020-09-08 18:13:00 Emergency Lala Clarke [facility] 1.2.840.114 350.1.13.10 4.2.7.2.686 [id number] 084 [id number] [facility] 2020-09-08 16:52:00 2020-09-08 18:13:00 Emergency Lala Clarke [facility] 1.2.840.114 350.1.13.10 4.2.7.2.686 [id number] 084 [id number] 2020-09-08 16:52:00 2020-09-08 16:52:00 Emergency LALA MEDRANO [facility] ERT [id number] [facility] 2020-09-06 09:52:00 2020-09-06 13:38:00 Emergency iNdia Solano [facility] 1.2.840.114 350.1.13.10 4.2.7.2.686 [id number] [id number] [facility] 2020-09-06 09:52:00 2020-09-06 13:38:00 Emergency Nidia Solano [facility] 1.2.840.114 350.1.13.10 4.2.7.2.686 [id number] [id number] 2020-09-06 09:52:00 2020-09-06 09:52:00 Emergency X [facility] [id number] [facility] 2020-09-06 00:00:00 2020-09-06 00:00:00 Orders Only Doctor Unassigned, [place] [facility] 1.2.840.114 350.1.13.10 4.2.7.2.686 [id number] [facility] 2020-09-06 00:00:00 2020-09-06 00:00:00 Orders Only Doctor Unassigned, [place] [facility] 1.2.840.114 350.1.13.10 4.2.7.2.686 [id number] 2020-08-26 23:45:00 2020-08-30 08:05:00 Emergency Benjamin Ashford [facility] 1.2.840.114 350.1.13.10 4.2.7.2.686 [id number] [id number] [facility] 2020-08-26 23:45:00 2020-08-30 08:05:00 Emergency Benjamin Ashford [facility] 1.2.840.114 350.1.13.10 4.2.7.2.686 [id number] [id number] 2020-08-26 23:43:00 2020-08-26 23:43:00 Emergency X [facility] [id number] [facility] 2020-07-09 19:41:00 2020-07-10 00:40:00 Emergency Chapito Contreras [facility] 1.2.840.114 350.1.13.10 4.2.7.2.686 [id number] [id number] [facility] 2020-07-09 19:41:00 2020-07-10 00:40:00 Emergency Chapito Contreras [facility] 1.2.840.114 350.1.13.10 4.2.7.2.686 [id number] 2020-07-09 19:41:00 2020-07-09 19:41:00 Emergency X CHAIPTO CONTRERAS [facility] ERT [id number] [facility] 2005-04-01 12:20:00 2005-04-01 20:14:00 Emergency X MARIBELL CEDILLO [facility] ERT [id number] [facility] Results Test Description Test Time [...] clinically for any signs and symptomsof [facility]stitis. [facility] Wopdq2151-35-40 17:02:35* Test Item Value Reference Range Interpretation Comme nts NA (test code = 0187177814) 139 mmol/L 135-145 K (test code = 0858945439) 4.4 mmol/L 3.5-5.0 CL (test code = 0938443555) 101 mmol/L 98-108 CO2 TOTAL (test code = 2908163544) 31 mmol/L 23-31 AGAP (test code = 0167535435) 7 2-16 BUN (test code = 6810669374) 12 mg/dL 7-23 GLUCOSE (test code = 4640423644) 100 mg/dL 70-110 CREATININE (test code = 2160-0) 0.61 mg/dL 0.60-1.25 TOTAL BILI (test code = 4511019113) 0.5 mg/dL 0.1-1.1 CALCIUM (test code = 5021944829) 9.8 mg/dL 8.6-10.6 T PROTEIN (test code = 3909949297) 8.4 g/dL 6.3-8.2 H ALBUMIN (test code = 8922741247) 4.7 g/dL 3.5-5.0 ALK PHOS (test code = 9702439578) 84 U/L 34-122 ALTv (test code = 1742-6) 23 U/L 5-50 AST(SGOT) (test code = 3874907606) 25 U/L 13-40 eGFR (test code = 28582-7) 120.0 mL/min/1.73m2 CKD-EPI eGFR (2020). Assuming creatinine has been stable day-to-day for at least three months, the eGFR indicates Category G1 (>= 90 mL/min/1.73 m2) Lab Interpretation (test code = 38054-9) [facility] Qonkw6456-18-81 17:01:54* Test Item Value Reference Range Interpretation Comme nts LIPASE (test code = 2392184290) 42 U/L 0-220 Lab Interpretation (test cod e = 37964-0) [facility]-18 07:16:16* Test Item Value Reference Range Interpretation Comme nts MAGNESIUM (test code = 3981131495) 2.2 mg/dL 1.7-2.4 Lab Interpretation (test cod e = 13448-1) [facility] (61895)2023-11-06 07:16:15* Test Item Value Reference Range Interpretation Comme nts NA (test code = 4250717597) 138 mmol/L 135-145 K (test code = 4815200093) 3.5 mmol/L 3.5-5.0 CL (test code = 8513017692) 106 mmol/L 98-108 CO2 TOTAL (test code = 5731690456) 23 mmol/L 23-31 AGAP (test code = 4999470268) 9 2-16 BUN (test code = 4925254565) 18 mg/dL 7-23 GLUCOSE (test code = 7809298244) 110 mg/dL 70-110 CREATININE (test code = 4454781444) 0.73 mg/dL 0.60-1.25 TOTAL BILI (test code = 8526656651) 0.4 mg/dL 0.1-1.1 CALCIUM (test code = 9895304465) 9.4 mg/dL 8.6-10.6 T PROTEIN (test code = 8547139499) 8.5 g/dL 6.3-8.2 H ALBUMIN (test code = 9176619823) 4.8 g/dL 3.5-5.0 ALK PHOS (test code = 9954695933) 78 U/L 34-122 ALTv (test code = 1742-6) 42 U/L 5-50 AST(SGOT) (test code = 6319067353) 43 U/L 13-40 H eGFR (test code = 08593-8) 113.6 mL/min/1.73m2 CKD-EPI eGFR (2020). Assuming creatinine has been stable day-to-day for at least three months, the eGFR indicates Category G1 (>= 90 mL/min/1.73 m2) Lab Interpretation (test code = 67305-5) [facility]normal [facility]24-[facility]-18 07:16:15* Test Item Value Reference Range Interpretation Comme nts LIPASE (test code = 6016120289) 118 U/L 0-220 Lab Interpretation (test cod e = 22110-7) Normal [facility] with Ojtq0932-70-65 06:49:12* Test Item Value Reference Range Interpretation Comme nts WBC (test code = 6690-2) 11.36 See_Comment H [Automated [employer]] The system which generated this result transmitted [...] 33.5 g/dL 31.2-35.0 RDW-SD (test code = 43203-9) 46.4 fL 38.5-51.6 RDW-CV (test code = 788-0) 13.7 % 12.1-15.4 PLT (test code = 777-3) 323 See_Comment [Automated messa ge] The system which generated this result transmitted reference range: 150 - 328 10*3/?L. The reference range was not used to interpret this result as normal/abnormal. MPV (test code = 08339-6) 9.8 fL 9.8-13.0 NRBC/100 WBC (test code = 8622339716) 0.0 See_Comment [Automated me ssage] The system which generated this result transmitted reference range: 0.0 - 10.0 /100 WBCs. The reference range was not used to interpret this result as normal/abnormal. NRBC x10^3 (test code = 3112740481) See_Comment [Automated messa ge] The system which generated this result transmitted reference range: 10*3/?L. The reference range was not used to interpret this result as normal/abnormal. GRAN MAT (NEUT) % (test code = 770-8) 56.1 % IMM GRAN % (test code = 3901993488) 0.50 % LYMPH % (test code = 736-9) 34.8 % MONO % (test code = 5905-5) 6.3 % EOS % (test code = 713-8) 1.4 % BASO % (test code = 706-2) 0.9 % GRAN MAT x10^3(ANC) (test code = 2091308254) 6.38 10*3/uL 1.99-6.95 IMM GRAN x10^3 (test code = 7278914255) 0.06 10*3/uL 0.00-0.06 LYMPH x10^3 (test code = 731-0) 3.95 10*3/uL 1.09-3.23 H MONO x10^3 (test code = 742-7) 0.71 10*3/uL 0.36-1.02 EOS x10^3 (test code = 711-2) 0.16 10*3/uL 0.06-0.53 BASO x10^3 (test code = 704-7) 0.10 10*3/uL 0.01-0.09 H Lab Interpretation (test code = 46717-8) [facility] W TASYHVAZ5269-11-50 09:00:37Ordering physician: JOSE FRANCISCO WALTERS Indication: Acute [...] andpelvis demonstrate no osseous destructive lesion. [facility] Met[facility] Oldja1244-35-78 06:29:13* Test Item Value Reference Range Interpretation Comme nts NA (test code = 8684621066) 138 mmol/L 135-145 K (test code = 7980483288) 3.8 mmol/L 3.5-5.0 CL (test code = 2385076267) 106 mmol/L 98-108 CO2 TOTAL (test code = 2275687328) 21 mmol/L 23-31 L AGAP (test code = 4938913234) 11 2-16 BUN (test code = 8848110666) 13 mg/dL 7-23 GLUCOSE (test code = 3609883076) 113 mg/dL 70-110 H CREATININE (test code = 9519415270) 0.63 mg/dL 0.60-1.25 TOTAL BILI (test code = 1278214154) 0.7 mg/dL 0.1-1.1 CALCIUM (test code = 1083403953) 9.6 mg/dL 8.6-10.6 T PROTEIN (test code = 8042469882) 9.0 g/dL 6.3-8.2 H ALBUMIN (test code = 1866704429) 5.0 g/dL 3.5-5.0 ALK PHOS (test code = 4519796715) 73 U/L 34-122 ALTv (test code = 1742-6) 33 U/L 5-50 AST(SGOT) (test code = 7099325902) 33 U/L 13-40 eGFR (test code = 54265-4) 118.8 mL/min/1.73m2 CKD-EPI eGFR (2020). Assuming creatinine has been stable day-to-day for at least three months, the eGFR indicates Category G1 (>= 90 mL/min/1.73 m2) Lab Interpretation (test code = 78687-1) [facility]normal [facility], Qanwi7453-06-40 06:29:13* Test Item Value Reference Range Interpretation Comme nts LIPASE (test code = 4495699202) 89 U/L 0-220 Lab Interpretation (test cod e = 53160-1) [facility] with Omtctncqxphe5481-28-11 06:17:56* Test Item Value Reference Range Interpretation [...] 33.9 g/dL 31.2-35.0 RDW-SD (test code = 11080-9) 46.6 fL 38.5-51.6 RDW-CV (test code = 788-0) 14.0 % 12.1-15.4 PLT (test code = 777-3) 312 See_Comment [Automated messa ge] The system which generated this result transmitted reference range: 150 - 328 10*3/?L. The reference range was not used to interpret this result as normal/abnormal. MPV (test code = 02194-3) 9.7 fL 9.8-13.0 L NRBC/100 WBC (test code = 2837750593) 0.0 See_Comment [Automated me ssage] The system which generated this result transmitted reference range: 0.0 - 10.0 /100 WBCs. The reference range was not used to interpret this result as normal/abnormal. NRBC x10^3 (test code = 4207504648) See_Comment [Automated messa ge] The system which generated this result transmitted reference range: 10*3/?L. The reference range was not used to interpret this result as normal/abnormal. GRAN MAT (NEUT) % (test code = 770-8) 54.9 % IMM GRAN % (test code = 4999338668) 0.30 % LYMPH % (test code = 736-9) 36.0 % MONO % (test code = 5905-5) 6.3 % EOS % (test code = 713-8) 1.6 % BASO % (test code = 706-2) 0.9 % GRAN MAT x10^3(ANC) (test code = 1376714143) 6.35 10*3/uL 1.99-6.95 IMM GRAN x10^3 (test code = 3221143122) 0.03 10*3/uL 0.00-0.06 LYMPH x10^3 (test code = 731-0) 4.15 10*3/uL 1.09-3.23 H MONO x10^3 (test code = 742-7) 0.73 10*3/uL 0.36-1.02 EOS x10^3 (test code = 711-2) 0.18 10*3/uL 0.06-0.53 BASO x10^3 (test code = 704-7) 0.10 10*3/uL 0.01-0.09 H Lab Interpretation (test code = 95402-7) [facility]normal [facility] (AUTOMATED)2023-11-01 05:42:28* Test Item Value Reference Range Interpretation Comme nts POCT GLU (test code = 6404795478) 110 mg/dL 70-110 Lab Interpretation (test cod e = 28976-2) Normal [facility] ABDOMEN PELVIS W CXIOSFCH5028-17-57 07:44:05Ordering physician: CHAPITO CONTRERAS Indication: Acute right [...] lesion. 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 The reference range was not used to interpret this result as normal/abnormal. RBC (test code = 789-8) 5.23 See_Comment [Automated [employer]] The system which generated this result transmitted [...] 33.9 g/dL 31.2-35.0 RDW-SD (test code = 80623-5) 45.0 fL 38.5-51.6 RDW-CV (test code = 788-0) 13.6 % 12.1-15.4 PLT (test code = 777-3) 307 See_Comment [Automated messa ge] The system which generated this result transmitted reference range: 150 - 328 10*3/?L. The reference range was not used to interpret this result as normal/abnormal. MPV (test code = 15852-6) 9.3 fL 9.8-13.0 L NRBC/100 WBC (test code = 7407470782) 0.0 See_Comment [Automated Signicat ssage] The system which generated this result transmitted reference range: 0.0 - 10.0 /100 WBCs. The reference range was not used to interpret this result as normal/abnormal. NRBC x10^3 (test code = 1488707782) See_Comment [Automated messa ge] The system which generated this result transmitted reference range: 10*3/?L. The reference range was not used to interpret this result as normal/abnormal. SEG % (test code = 85270-1) 49 % 33-76 LYMPH % (test code = 60813-1) 40 % 14-54 MONO % (test code = 59920-2) 4 % 0-4 EOS % (test code = 12985-3) 7 % 0-3 H ANC (test code = 753-4) 5.81 10*3/uL 1.99-6.95 Lab Interpretation (test code = 84683-2) [id number] 06:32:13* Test Item Value Reference Range Interpretation Comme nts NA (test code = 5344389168) 140 mmol/L 135-145 K (test code = 3892217625) 3.7 mmol/L 3.5-5.0 CL (test code = 6406372334) 105 mmol/L 98-108 CO2 TOTAL (test code = 8488356681) 23 mmol/L 23-31 AGAP (test code = 4197446337) 12 2-16 BUN (test code = 0069819134) 15 mg/dL 7-23 GLUCOSE (test code = 4862786123) 126 mg/dL 70-110 H CREATININE (test code = 4172643999) 0.89 mg/dL 0.60-1.25 TOTAL BILI (test code = 8020762464) 0.6 mg/dL 0.1-1.1 CALCIUM (test code = 0709625670) 9.5 mg/dL 8.6-10.6 T PROTEIN (test code = 1697744150) 8.6 g/dL 6.3-8.2 H ALBUMIN (test code = 7841522213) 4.7 g/dL 3.5-5.0 ALK PHOS (test code = 5055737574) 84 U/L 34-122 ALTv (test code = 1742-6) 38 U/L 5-50 AST(SGOT) (test code = 7967965024) 33 U/L 13-40 eGFR (test code = 94004-2) 107.0 mL/min/1.73m2 CKD-EPI eGFR (2020). Assuming creatinine has been stable day-to-day for at least three months, the eGFR indicates Category G1 (>= 90 mL/min/1.73 m2) Lab Interpretation (test code = 53876-5) [facility] [id number] 06:31:52* Test Item Value Reference Range Interpretation Comme nts LIPASE (test code = 6337570139) 80 U/L 0-220 Lab Interpretation (test cod e = 06482-1) [facility] (NA, K, CL, CO2, GLUCOSE, BUN, CREATININE, CA)2023-09-26 06:00:26* Test Item Value Reference Range Interpretation Comme nts NA (test code = 7588015879) 139 mmol/L 135-145 K (test code = 3801681919) 3.9 mmol/L 3.5-5.0 CL (test code = 0033586598) 104 mmol/L 98-108 CO2 TOTAL (test code = 1618203475) 25 mmol/L 23-31 AGAP (test code = 1908008774) 10 2-16 BUN (test code = 8728588511) 14 mg/dL 7-23 GLUCOSE (test code = 9280865249) 109 mg/dL 70-110 CREATININE (test code = 9015304336) 0.77 mg/dL 0.60-1.25 CALCIUM (test code = 7808429022) 10.4 mg/dL 8.6-10.6 eGFR (test code = 26353-2) 112.5 mL/min/1.73m2 CKD-EPI eGFR (20 21). Assuming creatinine has been stable day-to-day for at least three months, the eGFR indicates Category G1 (>= 90 mL/min/1.73 m2) [facility] (89368[facility] (ALB,T.PRO,BILI T,BU/BC,ALT,AST,ALK PHOS)2023-09-26 06:00:26* Test Item Value Reference Range Interpretation Comme nts TOTAL BILI (test code = 6748315474) 0.6 mg/dL 0.1-1.1 BILI UNCON (test code = 6943174330) 0.4 mg/dL 0.1-1.1 BILI CONJ (test code = 3049998564) 0.0 mg/dL 0.0-0.3 T PROTEIN (test code = 8547172010) 8.6 g/dL 6.3-8.2 H ALBUMIN (test code = 2725420050) 4.7 g/dL 3.5-5.0 ALK PHOS (test code = 7938409949) 91 U/L 34-122 ALTv (test code = 1742-6) 40 U/L 5-50 AST(SGOT) (test code = 9238193420) 27 U/L 13-40 Lab Interpretation (test cod e = 82921-8) [facility]* Test Item Value Reference Range Interpretation Comme nts LIPASE (test code = 9313241942) 73 U/L 0-220 Lab Interpretation (test cod e = 29424-9) [facility] [id number] 05:50:26* Test Item Value Reference Range Interpretation Comme nts WBC (test code = 6690-2) 10.08 See_Comment [Automated Algisysa ge] The system which generated this result [...] 33.8 g/dL 31.2-35.0 RDW-SD (test code = 78258-6) 44.0 fL 38.5-51.6 RDW-CV (test code = 788-0) 13.1 % 12.1-15.4 PLT (test code = 777-3) 317 See_Comment [Automated Algisysa ge] The system which generated this result transmitted reference range: 150 - 328 10*3/?L. The reference range was not used to interpret this result as normal/abnormal. MPV (test code = 92635-3) 9.6 fL 9.8-13.0 L NRBC/100 WBC (test code = 6124843177) 0.0 See_Comment [Automated Signicat ssage] The system which generated this result transmitted reference range: 0.0 - 10.0 /100 WBCs. The reference range was not used to interpret this result as normal/abnormal. NRBC x10^3 (test code = 5646229977) See_Comment [Automated Algisysa ge] The system which generated this result transmitted reference range: 10*3/?L. The reference range was not used to interpret this result as normal/abnormal. GRAN MAT (NEUT) % (test code = 770-8) 50.9 % IMM GRAN % (test code = 4220371131) 0.30 % LYMPH % (test code = 736-9) 38.3 % MONO % (test code = 5905-5) 7.5 % EOS % (test code = 713-8) 2.2 % BASO % (test code = 706-2) 0.8 % GRAN MAT x10^3(ANC) (test code = 1687503240) 5.13 10*3/uL 1.99-6.95 IMM GRAN x10^3 (test code = 6172690440) 0.03 10*3/uL 0.00-0.06 LYMPH x10^3 (test code = 731-0) 3.86 10*3/uL 1.09-3.23 H MONO x10^3 (test code = 742-7) 0.76 10*3/uL 0.36-1.02 EOS x10^3 (test code = 711-2) 0.22 10*3/uL 0.06-0.53 BASO x10^3 (test code = 704-7) 0.08 10*3/uL 0.01-0.09 Lab Interpretation (test code = 53095-7) [facility] [id number] 05:30:49* Test Item Value Reference Range Interpretation Comme nts TROPONIN I (test code = 7013550924) 0.001 ng/mL <=0.034 LAURIE (test code = [...] of biotin. Lab Interpretation (test code = 25171-9) [facility] (88320)2023-08-24 05:19:05* Test Item Value Reference Range Interpretation Comme nts NA (test code = 3800591793) 138 mmol/L 135-145 K (test code = 2066154810) 4.3 mmol/L 3.5-5.0 CL (test code = 5922118785) 100 mmol/L 98-108 CO2 TOTAL (test code = 4913800158) 25 mmol/L 23-31 AGAP (test code = 2942927946) 13 2-16 BUN (test code = 4346521266) 15 mg/dL 7-23 GLUCOSE (test code = 9701555890) 198 mg/dL 70-110 H CREATININE (test code = 0645447487) 0.86 mg/dL 0.60-1.25 TOTAL BILI (test code = 2699928207) 0.3 mg/dL 0.1-1.1 CALCIUM (test code = 7409442128) 10.3 mg/dL 8.6-10.6 T PROTEIN (test code = 5669095728) 8.6 g/dL 6.3-8.2 H ALBUMIN (test code = 6259347268) 4.5 g/dL 3.5-5.0 ALK PHOS (test code = 4705890102) 94 U/L 34-122 ALTv (test code = 1742-6) 44 U/L 5-50 AST(SGOT) (test code = 8552616315) 28 U/L 13-40 eGFR (test code = 13615-4) 108.8 mL/min/1.73m2 CKD-EPI eGFR (2020). Assuming creatinine has been stable day-to-day for at least three months, the eGFR indicates Category G1 (>= 90 mL/min/1.73 m2) Lab Interpretation (test code = 38021-9) Abnormal [facility] WITH [id number] 05:01:26* Test Item Value Reference Range Interpretation Comme nts WBC (test code = 6690-2) 10.38 See_Comment [Automated [employer]] The system which generated this result transmitted reference range: 4.20 - 10.70 10*3/?L. The reference range was not used to interpret this result as normal/abnormal. RBC (test code = 789-8) 5.08 See_Comment [Automated [employer]] The system which generated this result transmitted [...] 33.5 g/dL 31.2-35.0 RDW-SD (test code = 24982-4) 43.8 fL 38.5-51.6 RDW-CV (test code = 788-0) 13.0 % 12.1-15.4 PLT (test code = 777-3) 298 See_Comment [Automated messa ge] The system which generated this result transmitted reference range: 150 - 328 10*3/?L. The reference range was not used to interpret this result as normal/abnormal. MPV (test code = 94691-4) 10.0 fL 9.8-13.0 NRBC/100 WBC (test code = 2109282704) 0.0 See_Comment [Automated Signicat ssage] The system which generated this result transmitted reference range: 0.0 - 10.0 /100 WBCs. The reference range was not used to interpret this result as normal/abnormal. NRBC x10^3 (test code = 0935132171) See_Comment [Automated messa ge] The system which generated this result transmitted reference range: 10*3/?L. The reference range was not used to interpret this result as normal/abnormal. GRAN MAT (NEUT) % (test code = 770-8) 52.4 % IMM GRAN % (test code = 3855689111) 0.30 % LYMPH % (test code = 736-9) 36.6 % MONO % (test code = 5905-5) 7.2 % EOS % (test code = 713-8) 2.6 % BASO % (test code = 706-2) 0.9 % GRAN MAT x10^3(ANC) (test code = 7336439422) 5.44 10*3/uL 1.99-6.95 IMM GRAN x10^3 (test code = 8457800157) 0.03 10*3/uL 0.00-0.06 LYMPH x10^3 (test code = 731-0) 3.80 10*3/uL 1.09-3.23 H MONO x10^3 (test code = 742-7) 0.75 10*3/uL 0.36-1.02 EOS x10^3 (test code = 711-2) 0.27 10*3/uL 0.06-0.53 BASO x10^3 (test code = 704-7) 0.09 10*3/uL 0.01-0.09 Lab Interpretation (test code = 61719-6) Abnormal [facility] GLUCOSE (AUTOMATED)2023-05-26 02:18:34* Test Item Value Reference Range Interpretation Comme nts POCT GLU (test code = 1699517634) 173 mg/dL 70-110 H Lab Interpretation (test cod e = 28912-7) Abnormal [facility] GLUCOSE(AGE >30DAYS)2023-05-26 02:17:00* Test Item Value Reference Range Interpretation Comme nts POCT Glu (age>30days) (test code = 3342) 173 mg/dL 70-110 A Lab Interpretation (test cod e = 05465-1) [facility] [id number] 01:41:57* Test Item Value Reference Range Interpretation Comme nts TROPONIN I (test code = 2181584775) 0.008 ng/mL <=0.034 LAURIE (test code = [...] of biotin. Lab Interpretation (test code = 62721-6) Normal [facility] GLUCOSE (AUTOMATED)2023-05-26 01:23:43* Test Item Value Reference Range Interpretation Comme nts POCT GLU (test code = 7451606886) 185 mg/dL 70-110 H Lab Interpretation (test cod e = 03283-4) [facility]normal [facility] [id number] 00:40:36* Test Item Value Reference Range Interpretation Comme nts NT-proBNP (test code = 88359-8) <=125 Lab Interpretation (test cod e = 06837-8) [facility] [id number] 00:06:55* Test Item Value Reference Range Interpretation Comme nts TROPONIN I (test code = 0305066189) 0.003 ng/mL <=0.034 LAURIE (test code = [...] of biotin. Lab Interpretation (test code = 29260-6) [facility]2023-08-06 23:56:12* Test Item Value Reference Range Interpretation Comme nts MAGNESIUM (test code = 9431495169) 2.0 mg/dL 1.7-2.4 Lab Interpretation (test cod e = 11851-1) [facility]OL[facility] (90298)2023-05-25 23:55:52* Test Item Value Reference Range Interpretation Comme nts NA (test code = 2114011962) 138 mmol/L 135-145 K (test code = 2257054435) 4.3 mmol/L 3.5-5.0 CL (test code = 4713940746) 103 mmol/L 98-108 CO2 TOTAL (test code = 4868955081) 22 mmol/L 23-31 L AGAP (test code = 9727591835) 13 2-16 BUN (test code = 4399644750) 22 mg/dL 7-23 GLUCOSE (test code = 2364506808) 274 mg/dL 70-110 H CREATININE (test code = 6504822869) 0.79 mg/dL 0.60-1.25 TOTAL BILI (test code = 6863858703) 0.6 mg/dL 0.1-1.1 CALCIUM (test code = 3938909588) 9.2 mg/dL 8.6-10.6 T PROTEIN (test code = 0687943827) 8.4 g/dL 6.3-8.2 H ALBUMIN (test code = 9766094834) 4.5 g/dL 3.5-5.0 ALK PHOS (test code = 0779061841) 88 U/L 34-122 ALTv (test code = 1742-6) 48 U/L 5-50 AST(SGOT) (test code = 1657906158) 37 U/L 13-40 eGFR (test code = 4032528380) 106.1 mL/min/1.73m2 LAURIE (test code = LAURIE) [...] imaging tests). Lab Interpretation (test code = 67475-4) [facility] 23:55:32* Test Item Value Reference Range Interpretation Comme nts LIPASE (test code = 2570605361) 154 U/L 0-220 Lab Interpretation (test cod e = 36288-9) [facility] WITH [id number] 23:33:34* Test Item Value Reference Range Interpretation Comme nts WBC (test code = 6690-2) 9.32 See_Comment [Automated Algisysa ge] The system which generated this result transmitted reference range: 4.20 - 10.70 10*3/?L. The reference range was not used to interpret this result as normal/abnormal. RBC (test code = 789-8) 4.89 See_Comment [Automated Algisysa ge] The system which generated this result [...] 33.7 g/dL 31.2-35.0 RDW-SD (test code = 11039-7) 45.4 fL 38.5-51.6 RDW-CV (test code = 788-0) 13.4 % 12.1-15.4 PLT (test code = 777-3) 286 See_Comment [Automated messa ge] The system which generated this result transmitted reference range: 150 - 328 10*3/?L. The reference range was not used to interpret this result as normal/abnormal. MPV (test code = 02213-2) 10.2 fL 9.8-13.0 NRBC/100 WBC (test code = 0255683518) 0.0 See_Comment [Automated Signicat ssage] The system which generated this result transmitted reference range: 0.0 - 10.0 /100 WBCs. The reference range was not used to interpret this result as normal/abnormal. NRBC x10^3 (test code = 2199572749) See_Comment [Automated me ssage] The system which generated this result transmitted reference range: 10*3/?L. The reference range was not used to interpret this result as normal/abnormal. GRAN MAT (NEUT) % (test code = 770-8) 57.3 % IMM GRAN % (test code = 3149288609) 0.40 % LYMPH % (test code = 736-9) 32.6 % MONO % (test code = 5905-5) 6.8 % EOS % (test code = 713-8) 1.9 % BASO % (test code = 706-2) 1.0 % GRAN MAT x10^3(ANC) (test code = 5118450057) 5.34 10*3/uL 1.99-6.95 IMM GRAN x10^3 (test code = 6398518074) 0.04 10*3/uL 0.00-0.06 LYMPH x10^3 (test code = 731-0) 3.04 10*3/uL 1.09-3.23 MONO x10^3 (test code = 742-7) 0.63 10*3/uL 0.36-1.02 EOS x10^3 (test code = 711-2) 0.18 10*3/uL 0.06-0.53 BASO x10^3 (test code = 704-7) 0.09 10*3/uL 0.01-0.09 [facility] with [id number] 07:42:13* Test Item Value Reference Range Interpretation [...] 33.3 g/dL 31.2-35.0 RDW-SD (test code = 46670-0) 44.4 fL 38.5-51.6 RDW-CV (test code = 788-0) 13.6 % 12.1-15.4 PLT (test code = 777-3) 187 See_Comment [Automated Algisysa ge] The system which generated this result transmitted reference range: 150 - 328 10*3/?L. The reference range was not used to interpret this result as normal/abnormal. MPV (test code = 80628-9) 10.4 fL 9.8-13.0 NRBC/100 WBC (test code = 0212915836) 0.0 See_Comment [Automated Signicat ssage] The system which generated this result transmitted reference range: 0.0 - 10.0 /100 WBCs. The reference range was not used to interpret this result as normal/abnormal. NRBC x10^3 (test code = 8421978011) See_Comment [Automated Algisysa ge] The system which generated this result transmitted reference range: 10*3/?L. The reference range was not used to interpret this result as normal/abnormal. GRAN MAT (NEUT) % (test code = 770-8) 55.0 % IMM GRAN % (test code = 4928100059) 0.50 % LYMPH % (test code = 736-9) 34.8 % MONO % (test code = 5905-5) 6.5 % EOS % (test code = 713-8) 2.5 % BASO % (test code = 706-2) 0.7 % GRAN MAT x10^3(ANC) (test code = 3418714159) 5.95 10*3/uL 1.99-6.95 IMM GRAN x10^3 (test code = 3666596618) 0.05 10*3/uL 0.00-0.06 LYMPH x10^3 (test code = 731-0) 3.77 10*3/uL 1.09-3.23 H MONO x10^3 (test code = 742-7) 0.70 10*3/uL 0.36-1.02 EOS x10^3 (test code = 711-2) 0.27 10*3/uL 0.06-0.53 BASO x10^3 (test code = 704-7) 0.08 10*3/uL 0.01-0.09 Lab Interpretation (test code = 67384-6) [facility] Hospital[facility] Metabolic Gkgpg9703-37-66 07:32:47* Test Item Value Reference Range Interpretation Comme nts NA (test code = 0719477176) 136 mmol/L 135-145 K (test code = 6187669444) 4.2 mmol/L 3.5-5.0 CL (test code = 4688114099) 104 mmol/L 98-108 CO2 TOTAL (test code = 6957166923) 21 mmol/L 23-31 L AGAP (test code = 8908237965) 11 2-16 BUN (test code = 9029151719) 17 mg/dL 7-23 GLUCOSE (test code = 1952797213) 125 mg/dL 70-110 H CREATININE (test code = 0573730361) 0.63 mg/dL 0.60-1.25 TOTAL BILI (test code = 3533941556) 0.3 mg/dL 0.1-1.1 CALCIUM (test code = 5635844672) 9.3 mg/dL 8.6-10.6 T PROTEIN (test code = 4079134513) 7.8 g/dL 6.3-8.2 ALBUMIN (test code = 9590844760) 4.5 g/dL 3.5-5.0 ALK PHOS (test code = 8244056986) 97 U/L 34-122 ALTv (test code = 1742-6) 42 U/L 5-50 AST(SGOT) (test code = 4838055914) 34 U/L 13-40 eGFR (test code = 6855536456) 137.7 mL/min/1.73m2 LAURIE (test code = LAURIE) [...] imaging tests). Lab Interpretation (test code = 22019-3) [facility]normal [facility] HospitalLip[facility], Enrgk3108-80-80 07:31:52* Test Item Value Reference Range Interpretation Comme nts LIPASE (test code = 1949999828) 73 U/L 0-220 Lab Interpretation (test cod e = 10383-5) Normal [facility] HospitalTHYROID STIMULATING [id number] 18:17:21 * Test Item Value Reference Range Interpretation Comme nts TSH (test code = 4737233142) See_Comment H [Automated [employer]a [employer]] The system which generated this result transmitted reference range: 0.45 - 4.70 mIU/L. The reference range was not used to interpret this result as normal/abnormal. Lab Interpretation (test code = 20030-6) [facility] HospitalFR [id number] 16:53:41* Test Item Value Reference Range Interpretation Comme nts FREE T4 (test code = 4484529669) See_Comment L [Automated messa ge] The system which generated this result transmitted reference range: 0.78 - 2.20 ng/dL:. The reference range was not used to interpret this result as normal/abnormal. Lab Interpretation (test code = 93528-5) Abnormal [facility] [id number] 16:53:04* Test Item Value Reference Range Interpretation Comme nts FREE T3 (test code = 7581838153) 1.50 pg/mL 2.77-5.27 L Lab Interpretation (test cod e = 57518-5) Abnormal [facility]. METABOLIC PANEL (97548)2022-05-28 16:37:03* Test Item Value Reference Range Interpretation Comme nts NA (test code = 3159608407) 138 mmol/L 135-145 K (test code = 3255445809) 4.4 mmol/L 3.5-5 CL (test code = 0221301033) 101 mmol/L 98-108 CO2 TOTAL (test code = 3420963981) 27 mmol/L 23-31 AGAP (test code = 9550227621) 2-16 BUN (test code = 3298334468) 14 mg/dL 7-23 GLUCOSE (test code = 0450083608) 102 mg/dL 70-110 CREATININE (test code = 5817770167) 0.82 mg/dL 0.6-1.25 TOTAL BILI (test code = 1069240596) 0.5 mg/dL 0.1-1.1 CALCIUM (test code = 2084856130) 9.3 mg/dL 8.6-10.6 T PROTEIN (test code = 3459737541) 8.3 g/dL 6.3-8.2 H ALBUMIN (test code = 3213327337) 4.8 g/dL 3.5-5 ALK PHOS (test code = 8406123411) 75 U/L 34-122 ALTv (test code = 1742-6) 56 U/L 5-50 H AST(SGOT) (test code = 1978812010) 42 U/L 13-40 H eGFR (test code = 1091052378) mL/min/1.73m2 LAURIE (test code = LAURIE) Association [...] imaging tests). Lab Interpretation (test code = 00905-6) Abnormal [facility] WITH [id number] 16:25:38* Test Item Value Reference Range Interpretation Comme nts WBC (test code = 6690-2) See_Comment [[employer] The system which generated this result transmitted reference range: 4.20 - 10.70 10*3/?L. The reference range was not used to interpret this result as normal/abnormal. RBC (test code = 789-8) See_Comment [Automated [employer]] The system which generated this result transmitted [...] 33.0 g/dL 31.2-35 RDW-SD (test code = 02810-9) 48.1 fL 38.5-51.6 RDW-CV (test code = 788-0) 14.2 % 12.1-15.4 PLT (test code = 777-3) See_Comment [Automated messa ge] The system which generated this result transmitted reference range: 150 - 328 10*3/?L. The reference range was not used to interpret this result as normal/abnormal. MPV (test code = 53641-1) 9.5 fL 9.8-13 L NRBC/100 WBC (test code = 4406923929) See_Comment [Automated Signicat ssage] The system which generated this result transmitted reference range: 0.0 - 10.0 /100 WBCs. The reference range was not used to interpret this result as normal/abnormal. NRBC x10^3 (test code = 0621889753) See_Comment [Automated messa ge] The system which generated this result transmitted reference range: 10*3/?L. The reference range was not used to interpret this result as normal/abnormal. GRAN MAT (NEUT) % (test code = 770-8) 56.3 % IMM GRAN % (test code = 2558114557) 0.70 % LYMPH % (test code = 736-9) 32.8 % MONO % (test code = 5905-5) 6.2 % EOS % (test code = 713-8) 2.7 % BASO % (test code = 706-2) 1.3 % GRAN MAT x10^3(ANC) (test code = 4508396171) 4.87 10*3/uL 1.99-6.95 IMM GRAN x10^3 (test code = 8243158860) 0.06 10*3/uL 0-0.06 LYMPH x10^3 (test code = 731-0) 2.84 10*3/uL 1.09-3.23 MONO x10^3 (test code = 742-7) 0.54 10*3/uL 0.36-1.02 EOS x10^3 (test code = 711-2) 0.23 10*3/uL 0.06-0.53 BASO x10^3 (test code = 704-7) 0.11 10*3/uL 0.01-0.09 H Lab Interpretation (test code = 42826-6) [facility]normal [facility] 06:03:53* Test Item Value Reference Range Interpretation Comme nts MAGNESIUM (test code = 3206756888) 1.8 mg/dL 1.7-2.4 Lab Interpretation (test cod e = 18006-2) [facility] [id number] 06:00:52* Test Item Value Reference Range Interpretation Comments TROPONIN I (test code = 1262977184) 0.002 ng/mL See_Comment [Automated message] The system [...] of biotin. Lab Interpretation (test code = 56745-7) [facility]OL[facility] (38643)2022-05-06 05:49:11* Test Item Value Reference Range Interpretation Comme nts NA (test code = 9160792200) 136 mmol/L 135-145 K (test code = 2991012746) 4.4 mmol/L 3.5-5 CL (test code = 4084592226) 100 mmol/L 98-108 CO2 TOTAL (test code = 4347500606) 23 mmol/L 23-31 AGAP (test code = 6123630195) 2-16 BUN (test code = 6552337303) 16 mg/dL 7-23 GLUCOSE (test code = 1465368528) 116 mg/dL 70-110 H CREATININE (test code = 7642416850) 0.81 mg/dL 0.6-1.25 TOTAL BILI (test code = 5610768671) 0.6 mg/dL 0.1-1.1 CALCIUM (test code = 8501721561) 10.3 mg/dL 8.6-10.6 T PROTEIN (test code = 4360266805) 9.2 g/dL 6.3-8.2 H ALBUMIN (test code = 6052323875) 5.3 g/dL 3.5-5 H ALK PHOS (test code = 1399157010) 89 U/L 34-122 ALTv (test code = 1742-6) 44 U/L 5-50 AST(SGOT) (test code = 7431237383) 36 U/L 13-40 eGFR (test code = 7478344015) mL/min/1.73m2 LAURIE (test code = LAURIE) Association [...] imaging tests). Lab Interpretation (test code = 33652-3) [facility] 05:48:51* Test Item Value Reference Range Interpretation Comme nts LIPASE (test code = 9563209353) 67 U/L 0-220 Lab Interpretation (test cod e = 97527-3) [facility] WITH [id number] 05:36:33* Test Item Value Reference Range Interpretation [...] 34.1 g/dL 31.2-35 RDW-SD (test code = 18729-1) 45.9 fL 38.5-51.6 RDW-CV (test code = 788-0) 13.9 % 12.1-15.4 PLT (test code = 777-3) See_Comment [Automated messa ge] The system which generated this result transmitted reference range: 150 - 328 10*3/?L. The reference range was not used to interpret this result as normal/abnormal. MPV (test code = 97693-7) 9.5 fL 9.8-13 L NRBC/100 WBC (test code = 5027858933) See_Comment [Automated me ssage] The system which generated this result transmitted reference range: 0.0 - 10.0 /100 WBCs. The reference range was not used to interpret this result as normal/abnormal. NRBC x10^3 (test code = 1233792665) See_Comment [Automated messa ge] The system which generated this result transmitted reference range: 10*3/?L. The reference range was not used to interpret this result as normal/abnormal. GRAN MAT (NEUT) % (test code = 770-8) 60.3 % IMM GRAN % (test code = 5195108696) 0.80 % LYMPH % (test code = 736-9) 27.6 % MONO % (test code = 5905-5) 6.8 % EOS % (test code = 713-8) 3.5 % BASO % (test code = 706-2) 1.0 % GRAN MAT x10^3(ANC) (test code = 7396211868) 6.95 10*3/uL 1.99-6.95 IMM GRAN x10^3 (test code = 4491693014) 0.09 10*3/uL 0-0.06 H LYMPH x10^3 (test code = 731-0) 3.19 10*3/uL 1.09-3.23 MONO x10^3 (test code = 742-7) 0.79 10*3/uL 0.36-1.02 EOS x10^3 (test code = 711-2) 0.40 10*3/uL 0.06-0.53 BASO x10^3 (test code = 704-7) 0.12 10*3/uL 0.01-0.09 H Lab Interpretation (test code = 64051-6) [facility] (01992)2022-05-01 13:28:01* Test Item Value Reference Range Interpretation Comme nts NA (test code = 8484756850) 139 mmol/L 135-145 K (test code = 5660841374) 4.7 mmol/L 3.5-5 CL (test code = 7677204267) 104 mmol/L 98-108 CO2 TOTAL (test code = 0020054553) 23 mmol/L 23-31 AGAP (test code = 0276727617) 2-16 BUN (test code = 0101115132) 14 mg/dL 7-23 GLUCOSE (test code = 5347060721) 128 mg/dL 70-110 H CREATININE (test code = 7047209252) 0.62 mg/dL 0.6-1.25 TOTAL BILI (test code = 0531321328) 0.4 mg/dL 0.1-1.1 CALCIUM (test code = 3296778470) 9.2 mg/dL 8.6-10.6 T PROTEIN (test code = 9292172081) 8.1 g/dL 6.3-8.2 ALBUMIN (test code = 9089555391) 4.6 g/dL 3.5-5 ALK PHOS (test code = 1599537863) 92 U/L 34-122 ALTv (test code = 1742-6) 43 U/L 5-50 AST(SGOT) (test code = 1095798473) 30 U/L 13-40 eGFR (test code = 0925854376) mL/min/1.73m2 LAURIE (test code = LAURIE) Association [...] imaging tests). Lab Interpretation (test code = 32854-5) Abnormal [facility] WITH [id number] 13:20:02* Test Item Value Reference Range Interpretation Comme nts WBC (test code = 6690-2) See_Comment [Automated Algisysa ge] The system which generated this result transmitted reference range: 4.20 - 10.70 10*3/?L. The reference range was not used to interpret this result as normal/abnormal. RBC (test code = 789-8) See_Comment [Automated Algisysa ge] The system which generated this result [...] 32.8 g/dL 31.2-35 RDW-SD (test code = 24938-0) 47.5 fL 38.5-51.6 RDW-CV (test code = 788-0) 14.1 % 12.1-15.4 PLT (test code = 777-3) See_Comment [Automated Algisysa ge] The system which generated this result transmitted reference range: 150 - 328 10*3/?L. The reference range was not used to interpret this result as normal/abnormal. MPV (test code = 48673-6) 9.3 fL 9.8-13 L NRBC/100 WBC (test code = 9751027633) See_Comment [Automated Signicat ssage] The system which generated this result transmitted reference range: 0.0 - 10.0 /100 WBCs. The reference range was not used to interpret this result as normal/abnormal. NRBC x10^3 (test code = 8068790511) See_Comment [Automated messa ge] The system which generated this result transmitted reference range: 10*3/?L. The reference range was not used to interpret this result as normal/abnormal. GRAN MAT (NEUT) % (test code = 770-8) 58.9 % IMM GRAN % (test code = 4194579191) 0.60 % LYMPH % (test code = 736-9) 29.2 % MONO % (test code = 5905-5) 6.8 % EOS % (test code = 713-8) 3.5 % BASO % (test code = 706-2) 1.0 % GRAN MAT x10^3(ANC) (test code = 0758450283) 5.80 10*3/uL 1.99-6.95 IMM GRAN x10^3 (test code = 4961128413) 0.06 10*3/uL 0-0.06 LYMPH x10^3 (test code = 731-0) 2.87 10*3/uL 1.09-3.23 MONO x10^3 (test code = 742-7) 0.67 10*3/uL 0.36-1.02 EOS x10^3 (test code = 711-2) 0.34 10*3/uL 0.06-0.53 BASO x10^3 (test code = 704-7) 0.10 10*3/uL 0.01-0.09 H Lab Interpretation (test code = 13824-9) [id number]04[facility]* Test Item Value Reference Range Interpretation Comments TROPONIN I (test code = 5365919444) 0.002 ng/mL See_Comment [Automated message] The system [...] of biotin. Lab Interpretation (test code = 60858-8) [id number] 07:00:14* Test Item Value Reference Range Interpretation Comme nts NT-proBNP (test code = 9731721995) 25 pg/mL See_Comment [Automated message] The system which generated this result transmitted reference range: <=125. The reference range was not used to interpret this result as normal/abnormal. LAURIE (test code = LAURIE) Biotin has been reported to cause a negative bias, interpret results relative to patient's use of biotin. 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OL[facility] (81072)2022-02-08 06:50:57* Test Item Value Reference Range Interpretation Comme nts NA (test code = 3161729771) 138 mmol/L 135-145 K (test code = 1965222272) 4.3 mmol/L 3.5-5.0 CL (test code = 0671260967) 103 mmol/L 98-108 CO2 TOTAL (test code = 3253628848) 23 mmol/L 23-31 AGAP (test code = 5488558862) 2-16 BUN (test code = 7007911980) 14 mg/dL 7-23 GLUCOSE (test code = 3530720948) 142 mg/dL 70-110 H CREATININE (test code = 8554373689) 0.60 mg/dL 0.60-1.25 TOTAL BILI (test code = 7580051549) 0.5 mg/dL 0.1-1.1 CALCIUM (test code = 3619298503) 9.1 mg/dL 8.6-10.6 T PROTEIN (test code = 7924043452) 7.9 g/dL 6.3-8.2 ALBUMIN (test code = 0660584349) 4.5 g/dL 3.5-5.0 ALK PHOS (test code = 3446488949) 81 U/L 34-122 ALTv (test code = 1742-6) 28 U/L 5-50 AST(SGOT) (test code = 4261233614) 24 U/L 13-40 eGFR (test code = 2997777421) mL/min/1.73m2 LAURIE (test code = LAURIE) Association [...] imaging tests). Lab Interpretation (test code = 00568-2) Abnormal [facility]ACT[facility] THRMPLAS [id number] 06:47:31* Test Item Value Reference Range Interpretation Comme [facility] APTT Patient (test code = 3173-2) See_Comment [Automated message] The system which generated this result transmitted reference range: 23 - 38 Seconds. The reference range was not used to interpret this result as normal/abnormal. LAURIE (test code = LAURIE) The [facility] patient population mean normal value for aPTT is 30 seconds. Lab Interpretation (test code = 28209-1) Normal [facility] HospitalPROTHROMBIN TIME / [id number] 06:45:33* Test Item Value Reference Range Interpretation Comme [facility] PROTIME PATIENT (test code = 5964-2) See_Comment [Automated [employer]] The system which generated this result transmitted reference range: 12.0 - 14.7 Seconds. The reference range was not used to interpret this result as normal/abnormal. INR (test code = 6301-6) Normal INR <1.1; Warfarin Therapeutic range 2.0 to 3.0 or 2.5 to 3.5, depending upon the indications. Lab Interpretation (test code = 18931-6) Normal [facility] WITH [id number] 06:37:36* Test Item Value Reference Range Interpretation Comme [facility] WBC (test code = 6690-2) See_Comment [Automated [employer]] The system which generated this result transmitted reference range: 4.20 - 10.70 10*3/?L. The reference range was not used to interpret this result as normal/abnormal. RBC (test code = 789-8) See_Comment [Automated [employer]] The system which generated this result transmitted [...] 33.4 g/dL 31.2-35.0 RDW-SD (test code = 36720-3) 42.7 fL 38.5-51.6 RDW-CV (test code = 788-0) 13.1 % 12.1-15.4 PLT (test code = 777-3) See_Comment [Automated messa ge] The system which generated this result transmitted reference range: 150 - 328 10*3/?L. The reference range was not used to interpret this result as normal/abnormal. MPV (test code = 49637-3) 9.7 fL 9.8-13.0 L NRBC/100 WBC (test code = 3074300691) See_Comment [Automated Signicat ssage] The system which generated this result transmitted reference range: 0.0 - 10.0 /100 WBCs. The reference range was not used to interpret this result as normal/abnormal. NRBC x10^3 (test code = 4203978071) <0.01 See_Comment [Automated messa ge] The system which generated this result transmitted reference range: 10*3/?L. The reference range was not used to interpret this result as normal/abnormal. GRAN MAT (NEUT) % (test code = 770-8) 54.9 % IMM GRAN % (test code = 0128151880) 0.70 % LYMPH % (test code = 736-9) 32.9 % MONO % (test code = 5905-5) 8.7 % EOS % (test code = 713-8) 2.0 % BASO % (test code = 706-2) 0.8 % GRAN MAT x10^3(ANC) (test code = 7521850434) 5.84 10*3/uL 1.99-6.95 IMM GRAN x10^3 (test code = 2419935544) 0.07 10*3/uL 0.00-0.06 H LYMPH x10^3 (test code = 731-0) 3.50 10*3/uL 1.09-3.23 H MONO x10^3 (test code = 742-7) 0.92 10*3/uL 0.36-1.02 EOS x10^3 (test code = 711-2) 0.21 10*3/uL 0.06-0.53 BASO x10^3 (test code = 704-7) 0.09 10*3/uL 0.01-0.09 Lab Interpretation (test code = 68933-5) Abnormal [facility] HospitalTROPONIN [id number] 01:09:15* Test Item Value Reference Range Interpretation Comments TROPONIN I (test code = 7416085997) 0.003 ng/mL See_Comment [Automated message] The system [...] of biotin. Lab Interpretation (test code = 07745-3) Normal [facility] HospitalCOMP[facility] METABOLIC PANEL (56666)2021-10-15 00:56:56* Test Item Value Reference Range Interpretation Comme nts NA (test code = 5860736956) 135 mmol/L 135-145 K (test code = 7068068233) 4.6 mmol/L 3.5-5.0 CL (test code = 8555369643) 101 mmol/L 98-108 CO2 TOTAL (test code = 1266644779) 25 mmol/L 23-31 AGAP (test code = 8602392843) 2-16 BUN (test code = 8634927474) 20 mg/dL 7-23 GLUCOSE (test code = 6413818763) 130 mg/dL 70-110 H CREATININE (test code = 7669275945) 0.92 mg/dL 0.60-1.25 TOTAL BILI (test code = 9579619521) 0.4 mg/dL 0.1-1.1 CALCIUM (test code = 4307108760) 10.0 mg/dL 8.6-10.6 T PROTEIN (test code = 1381779696) 8.5 g/dL 6.3-8.2 H ALBUMIN (test code = 5728488557) 4.8 g/dL 3.5-5.0 ALK PHOS (test code = 8811255507) 89 U/L 34-122 ALTv (test code = 1742-6) 59 U/L 5-50 H AST(SGOT) (test code = 6694298685) 38 U/L 13-40 eGFR (test code = 5533681885) mL/min/1.73m2 LAURIE (test code = LAURIE) Association [...] imaging tests). Lab Interpretation (test code = 10966-7) Abnormal [facility]2021-[facility] 00:56:36* Test Item Value Reference Range Interpretation Comme nts LIPASE (test code = 8692416628) 77 U/L 0-220 Lab Interpretation (test cod e = 84610-8) Normal [facility] WITH [id number] 00:37:36* Test Item Value Reference Range Interpretation [...] 33.6 g/dL 31.2-35.0 RDW-SD (test code = 87880-7) 44.2 fL 38.5-51.6 RDW-CV (test code = 788-0) 13.3 % 12.1-15.4 PLT (test code = 777-3) See_Comment [Automated messa ge] The system which generated this result transmitted reference range: 150 - 328 10*3/?L. The reference range was not used to interpret this result as normal/abnormal. MPV (test code = 34408-9) 9.5 fL 9.8-13.0 L NRBC/100 WBC (test code = 3212656787) See_Comment [Automated Signicat ssage] The system which generated this result transmitted reference range: 0.0 - 10.0 /100 WBCs. The reference range was not used to interpret this result as normal/abnormal. NRBC x10^3 (test code = 6591808462) <0.01 See_Comment [Automated messa ge] The system which generated this result transmitted reference range: 10*3/?L. The reference range was not used to interpret this result as normal/abnormal. GRAN MAT (NEUT) % (test code = 770-8) 55.3 % IMM GRAN % (test code = 5891999197) 0.60 % LYMPH % (test code = 736-9) 32.5 % MONO % (test code = 5905-5) 7.8 % EOS % (test code = 713-8) 2.7 % BASO % (test code = 706-2) 1.1 % GRAN MAT x10^3(ANC) (test code = 2227860260) 5.74 10*3/uL 1.99-6.95 IMM GRAN x10^3 (test code = 9508127421) 0.06 10*3/uL 0.00-0.06 LYMPH x10^3 (test code = 731-0) 3.37 10*3/uL 1.09-3.23 H MONO x10^3 (test code = 742-7) 0.81 10*3/uL 0.36-1.02 EOS x10^3 (test code = 711-2) 0.28 10*3/uL 0.06-0.53 BASO x10^3 (test code = 704-7) 0.11 10*3/uL 0.01-0.09 H Lab Interpretation (test code = 89602-8) Abnormal [facility] HospitalCOVID-19 (ID NOW RAPID TESTING)2021-03-15 04:10:11* Test Item Value Reference Range Interpretation Comme nts SARS-CoV-2 Rapid ID NOW (test code = 50667-8) Not Detected Not Detected LAURIE (test code = LAURIE) ID NOW COVID-19 As say is an isothermal nucleic acid amplification test intended for the qualitative detection of nucleic acid from SARS-CoV-2 viral RNA in nasopharyngeal (ECHOCARDIOGRAPHY TECHNOLOGIST) specimens. It is used under Emergency Use [...] clinically indicated. Lab Interpretation (test code = 54720-2) Normal [facility]. METABOLIC PANEL (09621)2021-03-15 03:35:30* Test Item Value Reference Range Interpretation Comme nts NA (test code = 9104271750) 139 mmol/L 135-145 K (test code = 5382842482) 3.2 mmol/L 3.5-5.0 L CL (test code = 4559528586) 109 mmol/L 98-108 H CO2 TOTAL (test code = 1380441298) 23 mmol/L 23-31 AGAP (test code = 5797697486) 2-16 BUN (test code = 8760338652) 19 mg/dL 7-23 GLUCOSE (test code = 1701053527) 150 mg/dL 70-110 H CREATININE (test code = 0799556654) 0.81 mg/dL 0.60-1.25 TOTAL BILI (test code = 0689341506) 0.3 mg/dL 0.1-1.1 CALCIUM (test code = 0940790564) 8.2 mg/dL 8.6-10.6 L T PROTEIN (test code = 9345521243) 6.9 g/dL 6.3-8.2 ALBUMIN (test code = 2219051868) 4.0 g/dL 3.5-5.0 ALK PHOS (test code = 2530227713) 77 U/L 34-122 ALTv (test code = 1742-6) 22 U/L 5-50 AST(SGOT) (test code = 1684184824) 26 U/L 13-40 eGFR (test code = 3182245491) mL/min/1.73m2 LAURIE (test code = LAURIE) Association [...] imaging tests). Lab Interpretation (test code = 08160-2) Abnormal [facility] HospitalURINALYSIS2021-05-27 03:35:00* Test Item Value Reference Range Interpretation Comme nts APPEARANCE (test code = 2641673396) Clear Clear COLOR (test code = 4141937118) Yellow Yellow PH (test code = 8916928225) 4.8-8.0 SP GRAVITY (test code = 5687973278) 1.003-1.030 GLU U QUAL (test code = 9529790973) Normal Normal BLOOD (test code = 0412617841) Negative Negative KETONES (test code = 5124309136) 5 mg/dL Negative A PROTEIN (test code = 2887-8) Negative Negative UROBILIN (test code = 3423358967) Normal Normal BILIRUBIN (test code = 4431701747) Negative Negative NITRITE (test code = 9971390535) Negative Negative LEUK KENNY (test code = 1618517553) Negative Negative RBC/HPF (test code = 8960279018) <1 See_Comment [[employer] The system which generated this result transmitted reference range: 0 - 3 HPF. The reference range was not used to interpret this result as normal/abnormal. WBC/HPF (test code = 9510435298) <1 See_Comment [[employer] The system which generated this result transmitted reference range: 0 - 5 HPF. The reference range was not used to interpret this result as normal/abnormal. BACTERIA (test code = 2684546736) Negative Negative MUCOUS (test code = 7003934598) Slight Negative LPF A SQ EPITH (test code = 0493053375) <1 HPF Lab Interpretation (test code = 36073-0) Abnormal [facility] WITH [id number] 03:22:25* Test Item Value Reference Range Interpretation [...] 33.3 g/dL 31.2-35.0 RDW-SD (test code = 69032-4) 45.8 fL 38.5-51.6 RDW-CV (test code = 788-0) 13.7 % 12.1-15.4 PLT (test code = 777-3) See_Comment H [Automated messa ge] The system which generated this result transmitted reference range: 150 - 328 10*3/?L. The reference range was not used to interpret this result as normal/abnormal. MPV (test code = 43330-1) 9.4 fL 9.8-13.0 L NRBC/100 WBC (test code = 9903621976) See_Comment [Automated Signicat ssage] The system which generated this result transmitted reference range: 0.0 - 10.0 /100 WBCs. The reference range was not used to interpret this result as normal/abnormal. NRBC x10^3 (test code = 5302833276) <0.01 See_Comment [Automated messa ge] The system which generated this result transmitted reference range: 10*3/?L. The reference range was not used to interpret this result as normal/abnormal. GRAN MAT (NEUT) % (test code = 770-8) 58.4 % IMM GRAN % (test code = 7100165680) 0.50 % LYMPH % (test code = 736-9) 30.5 % MONO % (test code = 5905-5) 7.5 % EOS % (test code = 713-8) 2.2 % BASO % (test code = 706-2) 0.9 % GRAN MAT x10^3(ANC) (test code = 5907529612) 5.75 10*3/uL 1.99-6.95 IMM GRAN x10^3 (test code = 9230103943) 0.05 10*3/uL 0.00-0.06 LYMPH x10^3 (test code = 731-0) 3.00 10*3/uL 1.09-3.23 MONO x10^3 (test code = 742-7) 0.74 10*3/uL 0.36-1.02 EOS x10^3 (test code = 711-2) 0.22 10*3/uL 0.06-0.53 BASO x10^3 (test code = 704-7) 0.09 10*3/uL 0.01-0.09 Lab Interpretation (test code = 50710-3) [facility]normal [facility] HospitalCOMP[facility] MET[facility]OLIC PANEL (07210)2020-09-08 23:50:00* Test Item Value Reference Range Interpretation Comme nts NA (test code = 9672512348) 139 mmol/L 135-145 K (test code = 4209228888) 4.1 mmol/L 3.5-5 CL (test code = 3959943184) 107 mmol/L 98-108 CO2 TOTAL (test code = 2513091523) 22 mmol/L 23-31 L AGAP (test code = 4151170833) 2-16 BUN (test code = 5921403553) 12 mg/dL 7-23 GLUCOSE (test code = 7332065248) 115 mg/dL 70-110 H CREATININE (test code = 5094865677) 0.54 mg/dL 0.6-1.25 L TOTAL BILI (test code = 3359448762) 0.3 mg/dL 0.1-1.1 CALCIUM (test code = 2320443824) 9.3 mg/dL 8.6-10.6 T PROTEIN (test code = 0951572489) 7.6 g/dL 6.3-8.2 ALBUMIN (test code = 0742201998) 4.3 g/dL 3.5-5 ALK PHOS (test code = 1687001205) 80 U/L 34-122 ALTv (test code = 1742-6) 21 U/L 5-50 AST(SGOT) (test code = 1828485484) 21 U/L 13-40 eGFR Calculation (Non-) (test code = 2201533931) mL/min/1.73m2 eGFR Calculation () (test code = 9551694284) mL/min/1.73m2 LAURIE (test code = LAURIE) Association [...] imaging tests). Lab Interpretation (test code = 18797-6) Abnormal [facility]2020-11-20 23:50:00* Test Item Value Reference Range Interpretation Comme nts LIPASE (test code = 3848098483) 68 U/L 0-220 Lab Interpretation (test cod e = 71391-5) Normal [facility]CBC WITH [id number] 23:22:00* Test Item Value Reference Range Interpretation Comme nts WBC (test code = 6690-2) See_Comment [Automated [employer]] The system which generated this result transmitted reference range: 4.20 - 10.70 10*3/?L. The reference range was not used to interpret this result as normal/abnormal. RBC (test code = 789-8) See_Comment [Automated [employer]] The system which generated this result transmitted [...] 34.1 g/dL 31.2-35 RDW-SD (test code = 44210-1) 40.8 fL 38.5-51.6 RDW-CV (test code = 788-0) 12.5 % 12.1-15.4 PLT (test code = 777-3) See_Comment [Automated [employer]] The system which generated this result transmitted reference range: 150 - 328 10*3/?L. The reference range was not used to interpret this result as normal/abnormal. MPV (test code = 11316-6) 9.1 fL 9.8-13 L NRBC/100 WBC (test code = 7730491676) See_Comment [Automated wv ssage] The system which generated this result transmitted reference range: 0.0 - 10.0 /100 WBCs. The reference range was not used to interpret this result as normal/abnormal. NRBC x10^3 (test code = 7156429646) <0.01 See_Comment [Automated messa ge] The system which generated this result transmitted reference range: 10*3/?L. The reference range was not used to interpret this result as normal/abnormal. GRAN MAT (NEUT) % (test code = 770-8) 59.0 % IMM GRAN % (test code = 2716297540) 0.60 % LYMPH % (test code = 736-9) 31.3 % MONO % (test code = 5905-5) 6.6 % EOS % (test code = 713-8) 1.9 % BASO % (test code = 706-2) 0.6 % GRAN MAT x10^3(ANC) (test code = 6422551165) 5.85 10*3/uL 1.99-6.95 IMM GRAN x10^3 (test code = 8914518337) 0.06 10*3/uL 0-0.06 LYMPH x10^3 (test code = 731-0) 3.10 10*3/uL 1.09-3.23 MONO x10^3 (test code = 742-7) 0.65 10*3/uL 0.36-1.02 EOS x10^3 (test code = 711-2) 0.19 10*3/uL 0.06-0.53 BASO x10^3 (test code = 704-7) 0.06 10*3/uL 0.01-0.09 Lab Interpretation (test code = 58681-7) [facility]normal [facility] PEL[facility] W [id number] 17:21:17CT Abdomen and Pelvis with intravenous contrast. [...] fluid inthe abdomen or in the pelvis.2. Hepatomegaly.[facility]. METABOLIC PANEL (78624)2020-09-06 16:39:00* Test Item Value Reference Range Interpretation Comme nts NA (test code = 5732371035) 138 mmol/L 135-145 K (test code = 2214461371) 4.2 mmol/L 3.5-5 CL (test code = 8239951191) 103 mmol/L 98-108 CO2 TOTAL (test code = 6324710415) 25 mmol/L 23-31 AGAP (test code = 9825665735) 2-16 BUN (test code = 5077319033) 17 mg/dL 7-23 GLUCOSE (test code = 2803652069) 124 mg/dL 70-110 H CREATININE (test code = 6629804765) 0.95 mg/dL 0.6-1.25 TOTAL BILI (test code = 1782526541) 0.4 mg/dL 0.1-1.1 CALCIUM (test code = 7541345392) 9.7 mg/dL 8.6-10.6 T PROTEIN (test code = 9110530708) 7.9 g/dL 6.3-8.2 ALBUMIN (test code = 5787439449) 4.5 g/dL 3.5-5 ALK PHOS (test code = 7976374824) 75 U/L 34-122 ALTv (test code = 1742-6) 28 U/L 5-50 AST(SGOT) (test code = 7608286572) 23 U/L 13-40 eGFR Calculation (Non-) (test code = 4565002714) mL/min/1.73m2 eGFR Calculation () (test code = 6074171254) mL/min/1.73m2 LAURIE (test code = LAURIE) Association [...] imaging tests). Lab Interpretation (test code = 21746-4) Abnormal [facility]2020-11-18 16:39:00* Test Item Value Reference Range Interpretation Comme nts LIPASE (test code = 4122822519) 70 U/L 0-220 Lab Interpretation (test cod e = 31342-8) Normal [facility] HospitalMAGNESIUM2020-11-18 16:39:00* Test Item Value Reference Range Interpretation Comme nts MAGNESIUM (test code = 1189909955) 1.9 mg/dL 1.7-2.4 Lab Interpretation (test cod e = 12373-2) Normal [facility] HospitalLactic Acid Whole [id number] 16:38:00* Test Item Value Reference Range Interpretation Comme nts LACTIC ACID (test code = 7002544746) 1.51 mmol/L [facility]CB WITH [id number] 16:20:00* Test Item Value Reference Range Interpretation [...] 32.8 g/dL 31.2-35 RDW-SD (test code = 14182-8) 42.2 fL 38.5-51.6 RDW-CV (test code = 788-0) 12.6 % 12.1-15.4 PLT (test code = 777-3) See_Comment [Automated messa ge] The system which generated this result transmitted reference range: 150 - 328 10*3/?L. The reference range was not used to interpret this result as normal/abnormal. MPV (test code = 97779-6) 9.3 fL 9.8-13 L NRBC/100 WBC (test code = 2128914252) See_Comment [Automated me ssage] The system which generated this result transmitted reference range: 0.0 - 10.0 /100 WBCs. The reference range was not used to interpret this result as normal/abnormal. NRBC x10^3 (test code = 9846111514) <0.01 See_Comment [Automated messa ge] The system which generated this result transmitted reference range: 10*3/?L. The reference range was not used to interpret this result as normal/abnormal. GRAN MAT (NEUT) % (test code = 770-8) 64.9 % IMM GRAN % (test code = 8698138352) 0.50 % LYMPH % (test code = 736-9) 25.0 % MONO % (test code = 5905-5) 7.5 % EOS % (test code = 713-8) 1.3 % BASO % (test code = 706-2) 0.8 % GRAN MAT x10^3(ANC) (test code = 1581549639) 5.99 10*3/uL 1.99-6.95 IMM GRAN x10^3 (test code = 6688479314) 0.05 10*3/uL 0-0.06 LYMPH x10^3 (test code = 731-0) 2.31 10*3/uL 1.09-3.23 MONO x10^3 (test code = 742-7) 0.69 10*3/uL 0.36-1.02 EOS x10^3 (test code = 711-2) 0.12 10*3/uL 0.06-0.53 BASO x10^3 (test code = 704-7) 0.07 10*3/uL 0.01-0.09 Lab Interpretation (test code = 38633-9) [facility]46[facility]2020-[facility]-30 10:29:00* Test Item Value Reference Range Interpretation Comme nts NA (test code = 0193390018) 139 mmol/L 135-145 K (test code = 2772171983) 4.7 mmol/L 3.5-5 CL (test code = 9085580440) 105 mmol/L 98-108 CO2 TOTAL (test code = 0645249467) 24 mmol/L 23-31 AGAP (test code = 9626611189) 2-16 BUN (test code = 8247905254) 21 mg/dL 7-23 GLUCOSE (test code = 1356936808) 109 mg/dL 70-110 CREATININE (test code = 7523627995) 0.99 mg/dL 0.6-1.25 TOTAL BILI (test code = 8438325298) 0.4 mg/dL 0.1-1.1 CALCIUM (test code = 4288829896) 9.4 mg/dL 8.6-10.6 T PROTEIN (test code = 7516207126) 7.4 g/dL 6.3-8.2 ALBUMIN (test code = 9779783403) 4.2 g/dL 3.5-5 ALK PHOS (test code = 0464583794) 68 U/L 34-122 ALTv (test code = 1742-6) 33 U/L 5-50 AST(SGOT) (test code = 3027039566) 28 U/L 13-40 eGFR Calculation (Non-) (test code = 3332944173) mL/min/1.73m2 eGFR Calculation () (test code = 9096409268) mL/min/1.73m2 LAURIE (test code = LAURIE) Association [...] or urine or abnormalities in imaging tests). [facility] WITH [id number] 09:50:00* Test Item Value Reference Range Interpretation [...] 32.4 g/dL 31.2-35 RDW-SD (test code = 38374-0) 43.6 fL 38.5-51.6 RDW-CV (test code = 788-0) 13.0 % 12.1-15.4 PLT (test code = 777-3) See_Comment [Automated message] The system which generated this result transmitted reference range: 150 - 328 10*3/?L. The reference range was not used to interpret this result as normal/abnormal. MPV (test code = 07586-5) 10.0 fL 9.8-13 NRBC/100 WBC (test code = 9003372461) See_Comment [Automated message] The system which generated this result transmitted reference range: 0.0 - 10.0 /100 WBCs. The reference range was not used to interpret this result as normal/abnormal. NRBC x10^3 (test code = 1344716331) <0.01 See_Comment [Automated message] The system which generated this result transmitted reference range: 10*3/?L. The reference range was not used to interpret this result as normal/abnormal. GRAN MAT (NEUT) % (test code = 770-8) 80.1 % IMM GRAN % (test code = 1919415781) 0.50 % LYMPH % (test code = 736-9) 12.5 % MONO % (test code = 5905-5) 6.5 % EOS % (test code = 713-8) 0.1 % BASO % (test code = 706-2) 0.3 % GRAN MAT x10^3(ANC) (test code = 7564374748) 12.09 10*3/uL 1.99-6.95 H IMM GRAN x10^3 (test code = 4593014485) 0.08 10*3/uL 0-0.06 H LYMPH x10^3 (test code = 731-0) 1.89 10*3/uL 1.09-3.23 MONO x10^3 (test code = 742-7) 0.98 10*3/uL 0.36-1.02 EOS x10^3 (test code = 711-2) <0.03 0.06-0.53 L BASO x10^3 (test code = 704-7) 0.04 10*3/uL 0.01-0.09 Lab Interpretation (test code = 69848-0) Abnormal [facility] HospitalHEPATIC FUNCTION PANEL (27290) (ALB,T.PRO,BILI T,BU/BC,ALT,AST,ALK PHOS)2020-08-28 21:15:00* Test Item Value Reference Range Interpretation Comme nts TOTAL BILI (test code = 6509359487) 0.6 mg/dL 0.1-1.1 BILI UNCON (test code = 0717718521) 0.4 mg/dL 0.1-1.1 BILI CONJ (test code = 6392976943) 0.0 mg/dL 0-0.3 T PROTEIN (test code = 6076112957) 7.2 g/dL 6.3-8.2 ALBUMIN (test code = 6976103441) 3.9 g/dL 3.5-5 ALK PHOS (test code = 1526639477) 65 U/L 34-122 ALTv (test code = 1742-6) 20 U/L 5-50 AST(SGOT) (test code = 9069755190) 25 U/L 13-40 Lab Interpretation (test cod e = 51661-7) Normal [facility] ABDOMEN [id number] 18:22:30 Hepatomegaly with moderate hepatic steatosis. Cholelithiasis [...] which could be related to stone. [facility] [id number] 14:32:06No acute cardiopulmonary abnormality. Preliminary Report Dictated [...] reviewed this study andagree with theabove report.[facility] (NA, K, CL, CO2, GLUCOSE, BUN, CREATININE, CA) 2020-08-28 11:39:00* Test Item Value Reference Range Interpretation Comme nts NA (test code = 8453398152) 137 mmol/L 135-145 K (test code = 2197333570) 3.9 mmol/L 3.5-5 CL (test code = 4909692037) 104 mmol/L 98-108 CO2 TOTAL (test code = 0933781342) 28 mmol/L 23-31 AGAP (test code = 0337239788) 2-16 BUN (test code = 8455446735) 15 mg/dL 7-23 GLUCOSE (test code = 5127539706) 96 mg/dL 70-110 CREATININE (test code = 6600054473) 0.68 mg/dL 0.6-1.25 CALCIUM (test code = 4067595920) 9.2 mg/dL 8.6-10.6 eGFR Calculation (Non-) (test code = 7854932108) mL/min/1.73m2 eGFR Calculation () (test code = 4861215854) mL/min/1.73m2 LAURIE (test code = LAURIE) Association [...] urine or abnormalities in imaging tests). [facility] W WO [id number] 19:39:221. ?Diffuse bladder wall thickening is likely [...] this study and agree with theabove report.[facility] 2020-08-27 19:34:00* Test Item Value Reference Range Interpretation Comme nts POCT GLU (test code = 5074613295) 95 mg/dL 70-110 Lab Interpretation (test cod e = 17669-6) Normal [facility] [id number] 19:12:00* Test Item Value Reference Range Interpretation Comme nts TROPONIN I (test code = 9398388977) <0.012 See_Comment [Automated message] The system which [...] biotin. ? Lab Interpretation (test code = 48144-1) Normal [facility]2020-08-27 14:42:00* Test Item Value Reference Range Interpretation Comme nts POCT GLU (test code = 6629982889) 99 mg/dL 70-110 Lab Interpretation (test cod e = 49897-1) [facility] [id number] 13:09:00* Test Item Value Reference Range Interpretation Comme nts TROPONIN I (test code = 5305629874) <0.012 See_Comment [Automated message] The system which [...] biotin. ? Lab Interpretation (test code = 88945-4) Normal [facility] HospitalLIP[facility]EL (66957)(TOTAL CHOLESTEROL, TRIGLYCERIDES, HDL)2020-08-27 08:31:00* Test Item Value Reference Range Interpretation Comme nts CHOL (test code = 3376743707) 208 mg/dL 120-200 H HDL (test code = 0063845774) 28 mg/dL >40 L HDLC RATIO (test code = 3828527838) See_Comment H [Automated Ravel Law] The system which generated this result transmitted reference range: <=5.0. The reference range was not used to interpret this result as normal/abnormal. TRIG (test code = 8756239268) 351 mg/dL 30-170 H LDL CHOL (test code = 94678-4) 110 mg/dL See_Comment [Automated Ravel Law] The system which generated this result transmitted reference range: <=160. The reference range was not used to interpret this result as normal/abnormal. VLDL (test code = 4485584807) 70 mg/dL 5-60 H Lab Interpretation (test code = 30716-3) [facility]normal [facility] STIMULATING [id number] 08:00:00 * Test Item Value Reference Range Interpretation Comme nts TSH (test code = 3751525790) See_Comment L Biotin has been reported to cause a negative bias, interpret results relative to patient's use of biotin. [Automated message] The system which generated this result transmitted reference range: 0.45 - 4.70 mIU/L. The reference range was not used to interpret this result as normal/abnormal. Lab Interpretation (test code = 66408-1) [facility]normal [facility] (ID NOW RAPID TESTING)2020-08-27 07:03:00* Test Item Value Reference Range Interpretation Comme nts SARS-CoV-2 Rapid ID NOW (test code = 44503-4) Not Detected Not Detected LAURIE (test code = LAURIE) ID NOW COVID-19 As say is an isothermal nucleic acid amplification test intended for the qualitative detection of nucleic acid from SARS-CoV-2 viral RNA in nasopharyngeal (ECHOCARDIOGRAPHY TECHNOLOGIST) specimens. It is used under Emergency Use [...] clinically indicated. Lab Interpretation (test code = 36053-2) Normal [facility] / [facility] - DRUG SCREEN [id number] 06:58:00* Test Item Value Reference Range Interpretation Comme nts BENZO U (test code = 9152050648) Negative Negative HORACIO U (test code = 0070106103) Negative Negative AMPHET (test code = 6459400179) Negative Negative THC (test code = 0153271616) Negative Negative METHADONE (test code = 6838250069) Negative Negative Meth U (test code = 2431741623) Negative Negative OPIATES (test code = 8146479642) Negative Negative Cocaine Metabolite (test code = 9357871699) Negative Negative PROPOXY (test code = 4754016306) Negative Negative Tric U (test code = 6652812963) Negative Negative PCP (test code = 1263594273) Negative Negative OXYCOD (test code = 4913984213) Negative Negative LUARIE (test code = LAURIE) Urine Drug Cutoff [...] legal testing). Lab Interpretation (test code = 62789-6) Normal [facility]inalysis2020-11-08 06:51:00* Test Item Value Reference Range Interpretation Comme nts APPEARANCE (test code = 5676321557) Clear Clear COLOR (test code = 2204419566) Yellow Yellow PH (test code = 8089410395) 4.8-8.0 SP GRAVITY (test code = 6892014124) 1.003-1.030 GLU U QUAL (test code = 9861072890) Normal Normal BLOOD (test code = 1848650256) Negative Negative KETONES (test code = 9165503092) 20 mg/dL Negative A PROTEIN (test code = 2887-8) Negative Negative UROBILIN (test code = 4485606805) Normal Normal BILIRUBIN (test code = 7365562673) Negative Negative NITRITE (test code = 1322793187) Negative Negative LEUK KENNY (test code = 8322787597) Negative Negative RBC/HPF (test code = 8369570310) See_Comment [Automated Algisysa ge] The system which generated this result transmitted reference range: 0 - 3 HPF. The reference range was not used to interpret this result as normal/abnormal. WBC/HPF (test code = 3713434945) See_Comment [Automated Algisysa ge] The system which generated this result transmitted reference range: 0 - 5 HPF. The reference range was not used to interpret this result as normal/abnormal. BACTERIA (test code = 2459171986) Negative Negative MUCOUS (test code = 9246259233) Slight Negative LPF A Lab Interpretation (test code = 58008-3) Abnormal [facility] HospitalTroponin [id number] 06:45:00* Test Item Value Reference Range Interpretation Comme nts TROPONIN I (test code = 8986237357) <0.012 See_Comment [Automated message] The system which [...] biotin. ? 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 Fatalities Reported [facility] Met[facility] Panel (NA, K, CL, CO2, GLUCOSE, BUN, CREATININE, CA)2020-08-27 06:33:00* Test Item Value Reference Range Interpretation Comme nts NA (test code = 6884008163) 137 mmol/L 135-145 K (test code = 0231881487) 3.6 mmol/L 3.5-5 CL (test code = 2013495354) 102 mmol/L 98-108 CO2 TOTAL (test code = 4298686083) 26 mmol/L 23-31 AGAP (test code = 6572344608) 2-16 BUN (test code = 4007563512) 13 mg/dL 7-23 GLUCOSE (test code = 6459190927) 119 mg/dL 70-110 H CREATININE (test code = 6901859407) 0.86 mg/dL 0.6-1.25 CALCIUM (test code = 8284914927) 9.8 mg/dL 8.6-10.6 eGFR Calculation (Non-) (test code = 4026397161) mL/min/1.73m2 eGFR Calculation () (test code = 1538761604) mL/min/1.73m2 LAURIE (test code = LAURIE) Association [...] imaging tests). Lab Interpretation (test code = 95068-0) Abnormal [facility] HospitalHepatic Function Panel (ALB, T.PRO, BILI T, BU/BC, ALT, AST, ALK PHOS)2020-08-27 06:33:00* Test Item Value Reference Range Interpretation Comme nts TOTAL BILI (test code = 0946512477) 0.3 mg/dL 0.1-1.1 BILI UNCON (test code = 1003030074) 0.2 mg/dL 0.1-1.1 BILI CONJ (test code = 4820152608) 0.0 mg/dL 0-0.3 T PROTEIN (test code = 6405082482) 7.8 g/dL 6.3-8.2 ALBUMIN (test code = 6878100028) 4.5 g/dL 3.5-5 ALK PHOS (test code = 1133715752) 71 U/L 34-122 ALTv (test code = 1742-6) 26 U/L 5-50 AST(SGOT) (test code = 8940349051) 26 U/L 13-40 Lab Interpretation (test cod e = 00599-9) Normal [facility] HospitalLipase [id number] 06:33:00* Test Item Value Reference Range Interpretation Comme [facility] LIPASE (test code = 3453660936) 77 U/L 0-220 Lab Interpretation (test cod e = 58673-3) Normal [facility] HospitalaPTT2020-11-08 06:19:00* Test Item Value Reference Range Interpretation Comme [facility] APTT Patient (test code = 3173-2) See_Comment [Automated message] The system which generated this result transmitted reference range: 23 - 38 Seconds. The reference range was not used to interpret this result as normal/abnormal. LAURIE (test code = LAURIE) The [facility] patient population mean normal value for aPTT is 30 seconds. Lab Interpretation (test code = 33519-7) Normal [facility] HospitalProthrombin Time (PT) / [id number] 06:17:00 * Test Item Value Reference Range Interpretation Comme [facility] PROTIME PATIENT (test code = 5964-2) See_Comment [Automated Algisysa ge] The system which generated this result transmitted reference range: 12.0 - 14.7 Seconds. The reference range was not used to interpret this result as normal/abnormal. INR (test code = 6301-6) Normal INR <1.1; Warfarin Therapeutic range 2.0 to 3.0 or 2.5 to 3.5, depending upon the indications. Lab Interpretation (test code = 14930-6) Normal [facility] with [id number] 06:07:00* Test Item Value Reference Range Interpretation [...] 32.8 g/dL 31.2-35 RDW-SD (test code = 64971-2) 42.9 fL 38.5-51.6 RDW-CV (test code = 788-0) 12.7 % 12.1-15.4 PLT (test code = 777-3) See_Comment [Automated messa ge] The system which generated this result transmitted reference range: 150 - 328 10*3/?L. The reference range was not used to interpret this result as normal/abnormal. MPV (test code = 85219-7) 9.1 fL 9.8-13 L NRBC/100 WBC (test code = 8555940433) See_Comment [Automated Signicat ssage] The system which generated this result transmitted reference range: 0.0 - 10.0 /100 WBCs. The reference range was not used to interpret this result as normal/abnormal. NRBC x10^3 (test code = 7275555217) <0.01 See_Comment [Automated messa ge] The system which generated this result transmitted reference range: 10*3/?L. The reference range was not used to interpret this result as normal/abnormal. GRAN MAT (NEUT) % (test code = 770-8) 52.4 % IMM GRAN % (test code = 1876188222) 0.50 % LYMPH % (test code = 736-9) 37.8 % MONO % (test code = 5905-5) 6.2 % EOS % (test code = 713-8) 2.3 % BASO % (test code = 706-2) 0.8 % GRAN MAT x10^3(ANC) (test code = 1621020055) 4.33 10*3/uL 1.99-6.95 IMM GRAN x10^3 (test code = 1873682446) 0.04 10*3/uL 0-0.06 LYMPH x10^3 (test code = 731-0) 3.13 10*3/uL 1.09-3.23 MONO x10^3 (test code = 742-7) 0.51 10*3/uL 0.36-1.02 EOS x10^3 (test code = 711-2) 0.19 10*3/uL 0.06-0.53 BASO x10^3 (test code = 704-7) 0.07 10*3/uL 0.01-0.09 Lab Interpretation (test code = 10348-7) Abnormal [facility] [id number] 04:41:00* Test Item Value Reference Range Interpretation Comme nts TROPONIN I (test code = 0497541152) 0.000 ng/mL See_Comment [Automated message] The system [...] biotin. ? Lab Interpretation (test code = 07207-4) Normal [facility] / [facility] - DRUG SCREEN [id number] 03:46:00* Test Item Value Reference Range Interpretation Comme nts BENZO U (test code = 8790522116) Negative Negative HORACIO U (test code = 0615781136) Negative Negative AMPHET (test code = 4356401584) Negative Negative THC (test code = 0452905983) Negative Negative METHADONE (test code = 3583616437) Negative Negative Meth U (test code = 7250926275) Negative Negative OPIATES (test code = 0936711161) Presumptive Positive Negative A Cocaine Metabolite (test code = 2376001647) Negative Negative PROPOXY (test code = 6180693278) Negative Negative Tric U (test code = 8561598403) Negative Negative PCP (test code = 1557100496) Negative Negative OXYCOD (test code = 5314242560) Negative Negative LAURIE (test code = LAURIE) [...] legal testing). Lab Interpretation (test code = 00829-9) Abnormal [facility] HospitalD-[id number] 03:29:00* Test Item Value Reference Range Interpretation Comments D-DIMER (test code = 9264300753) <0.27 See_Comment [Automated message] The system which [...] a diagnosis. Lab Interpretation (test code = 61620-8) Normal [facility] HospitalLIPASE2020-09-21 02:07:00* Test Item Value Reference Range Interpretation Comme nts LIPASE (test code = 0789249888) 58 U/L 0-220 Lab Interpretation (test cod e = 61580-2) Normal [facility] HospitalXR CHEST 1 [id number] 01:44:02No acute cardiopulmonary abnormality. Preliminary Report Dictated [...] this study and agree with theabove report.[facility] TROPONIN [id number] 01:40:00* Test Item Value Reference Range Interpretation Comme [facility] TROPONIN I (test code = 7174590142) 0.000 ng/mL See_Comment [Automated message] The system [...] biotin. ? Lab Interpretation (test code = 50509-1) Normal [facility] HospitalPROTHROMBIN TIME / [id number] 01:39:00* Test Item Value Reference Range Interpretation Comme [facility] PROTIME PATIENT (test code = 5964-2) See_Comment [Automated messa ge] The system which generated this result transmitted reference range: 12.0 - 14.7 Seconds. The reference range was not used to interpret this result as normal/abnormal. INR (test code = 6301-6) Normal INR <1.1; Warfarin Therapeutic range 2.0 to 3.0 or 2.5 to 3.5, depending upon the indications. Lab Interpretation (test code = 22738-1) Normal [facility] HospitalCOVID-19 (ID NOW RAPID TESTING)2020-07-10 01:36:00* Test Item Value Reference Range Interpretation Comme nts SARS-CoV-2 Rapid ID NOW (test code = 43517-5) Not Detected Not Detected LAURIE (test code = LAURIE) ID NOW COVID-19 As say is an isothermal nucleic acid amplification test intended for the qualitative detection of nucleic acid from SARS-CoV-2 viral RNA in nasopharyngeal (ECHOCARDIOGRAPHY TECHNOLOGIST) specimens. It is used under Emergency Use [...] clinically indicated. Lab Interpretation (test code = 70357-1) Normal [facility]. METABOLIC PANEL (07007)2020-07-10 01:29:00* Test Item Value Reference Range Interpretation Comme nts NA (test code = 6381897977) 136 mmol/L 135-145 K (test code = 1446148741) 3.4 mmol/L 3.5-5 L CL (test code = 9266538326) 98 mmol/L 98-108 CO2 TOTAL (test code = 0471901840) 26 mmol/L 23-31 AGAP (test code = 7758129858) 2-16 BUN (test code = 7252809990) 16 mg/dL 7-23 GLUCOSE (test code = 8139103545) 165 mg/dL 70-110 H CREATININE (test code = 3145748941) 0.94 mg/dL 0.6-1.25 TOTAL BILI (test code = 2067229301) 0.4 mg/dL 0.1-1.1 CALCIUM (test code = 1523518638) 9.7 mg/dL 8.6-10.6 T PROTEIN (test code = 9896959989) 8.2 g/dL 6.3-8.2 ALBUMIN (test code = 5106894593) 4.4 g/dL 3.5-5 ALK PHOS (test code = 7262220892) 77 U/L 34-122 ALTv (test code = 1742-6) 31 U/L 5-50 AST(SGOT) (test code = 7441278767) 26 U/L 13-40 eGFR Calculation (Non-) (test code = 4072642612) mL/min/1.73m2 eGFR Calculation () (test code = 6297552129) mL/min/1.73m2 LAURIE (test code = LAURIE) Association [...] imaging tests). Lab Interpretation (test code = 79250-3) Abnormal [facility] WITH [id number] 01:11:00* Test Item Value Reference Range Interpretation [...] 34.0 g/dL 31.2-35 RDW-SD (test code = 02971-4) 42.6 fL 38.5-51.6 RDW-CV (test code = 788-0) 13.0 % 12.1-15.4 PLT (test code = 777-3) See_Comment [Automated messa ge] The system which generated this result transmitted reference range: 150 - 328 10*3/?L. The reference range was not used to interpret this result as normal/abnormal. MPV (test code = 53303-1) 9.5 fL 9.8-13 L NRBC/100 WBC (test code = 5189165686) See_Comment [Automated Signicat ssage] The system which generated this result transmitted reference range: 0.0 - 10.0 /100 WBCs. The reference range was not used to interpret this result as normal/abnormal. NRBC x10^3 (test code = 1930435351) <0.01 See_Comment [Automated messa ge] The system which generated this result transmitted reference range: 10*3/?L. The reference range was not used to interpret this result as normal/abnormal. GRAN MAT (NEUT) % (test code = 770-8) 65.5 % IMM GRAN % (test code = 1492011785) 0.70 % LYMPH % (test code = 736-9) 26.1 % MONO % (test code = 5905-5) 5.7 % EOS % (test code = 713-8) 1.2 % BASO % (test code = 706-2) 0.8 % GRAN MAT x10^3(ANC) (test code = 8689504207) 6.62 10*3/uL 1.99-6.95 IMM GRAN x10^3 (test code = 2524209463) 0.07 10*3/uL 0-0.06 H LYMPH x10^3 (test code = 731-0) 2.64 10*3/uL 1.09-3.23 MONO x10^3 (test code = 742-7) 0.58 10*3/uL 0.36-1.02 EOS x10^3 (test code = 711-2) 0.12 10*3/uL 0.06-0.53 BASO x10^3 (test code = 704-7) 0.08 10*3/uL 0.01-0.09 Lab Interpretation (test code = 89660-7) Abnormal [facility]
[2024-10-29] MEDS ORDERED: ASPIRIN 81 MG CHEWABLE TABLET ONE (11:03)
[2024-10-29 11:17] LABS: Absolute Basophils 0.1 K/uL (0-0.5); Absolute Eosinophils 0.1 K/uL (0-0.5); Absolute Lymphocytes (CBC) 2.1 K/uL (0.7-4.9); Absolute Monocytes 0.4 K/uL (0.1-1.3); Absolute Neutrophil 5.7 K/uL (1.8-8.0); Basophils % 1.2 % (0-1.3); Eosinophils % 1.5 % (0-4.4); Hematocrit 43.3 % (39.6-49.0); Hemoglobin 15.1 g/dL (13.6-17.9); Lymphocytes % 24.6 % (15.3-44.8); MCH 31.3 pg (27.0-35.0); MCHC 34.8 g/dL (32.0-36.0); MCV 89.9 fL (80-100); MPV 7.3 fL (7.6-11.3); Monocytes % 4.8 % (3.3-12.3); Neutrophils % 67.9 % (41.7-73.7); Platelets 294 thou/uL (152-406); RBC Red Blood Cell Count 4.82 M/uL (4.33-5.43); Red Cell Distribution Width 13.1 % (12.1-15.2)
[2024-10-29 11:19] LABS: PT Prothrombin Time 11.4 SECONDS (9.4-12.5); Protime INR 1.02
[2024-10-29] MEDS ORDERED: MORPHINE 4 MG/ML SYR ONE ×2 (11:21→12:08)
--- NOTE | 2024-10-29 11:28 | RAD REPORT ---
EXAMINATION: ONE VIEW CHEST XR CLINICAL INDICATION: CHEST PAIN TECHNIQUE: Frontal chest projection is submitted. Examination is limited by patient positioning and t echnique. COMPARISON: 10/11/2024 FINDINGS: The lungs are well inflated and clear. The heart is upper limit of normal in size. No displaced fract ures identified. IMPRESSION: No acute intrathoracic abnormalities.
[2024-10-29 11:53] LABS: ALT/SGPT 30 U/L (16-61); AST/SGOT 12 U/L (15-37); Albumin 3.7 g/dL (3.4-5.0); Albumin/Globulin Ratio 0.8 (1.1-1.8); Alkaline Phosphatase 96 U/L (45-117); Anion Gap 9.9 mEq/L (5.0-15.0); BUN Blood Urea Nitrogen 12 mg/dL (7-18); Bicarbonate 24 mEq/L (21-32); Bilirubin Total 0.3 mg/dL (0.2-1.0); Globulin 4.4 g/dL (2.3-3.5); Glomerular Filtration Rate 107 ml/min (=/>90); Glucose Level 221 mg/dL (74-106); Magnesium 2.1 mg/dL (1.6-2.4); NT PRO-BNP 24 pg/mL (<125); Potassium 3.9 mEq/L (3.5-5.1); Protein, Total 8.1 g/dL (6.4-8.2); Sodium Level 135 mEq/L (136-145)
[2024-10-29 11:54] LABS: Bilirubin Direct < 0.2 mg/dL (0-0.2); Bilirubin Indirect, Calculated 0.1 mg/dL (0.2-0.8)
[2024-10-29 11:55] LABS: Troponin High Sensitivity 93.3 pg/mL (<58.9)
--- NOTE | 2024-10-29 12:50 | EDPHYS ---
Physician Documentation [facility] Name: Carrington Dumont Age: 49 yrs Sex: Male : 1975 Arrival Date: 10/29/2024 Time: 10:42 Bed 14 Private MD: ED Physician Dylan Laguna HPI: 10/29 10:54 This 49 yrs old Male presents to ER via Unassigned with complaints of Chest ms3 Pain. 10:54 Carrington Dumont is a 49-year-old male presenting to the emergency department with ms3 chest pain. He reports that the chest pain has been intermittent but currently rates it as 5 out of 10, though it has reached 10 out of 10 at times. The chest pain began last night. He had a heart catheterization procedure three weeks ago and received a stent. Along with chest pain, he reports shortness of breath when the pain occurs and diarrhea. He took one 81 mg aspirin this morning. . Historical: - Allergies: 10:44 PENICILLINS; ll1 - PMHx: 10:44 coronary atherosclerosis; Hypertension; Hypothyroidism; ll1 - PSHx: 10:44 Cholecystectomy; Stented artery; ll1 - Immunization history:: Adult Immunizations up to date. - Social history:: Smoking status: Patient reports the use of cigarette tobacco products, smokes one-half pack cigarettes per day. ROS: 10:54 Constitutional: Negative for fever, and chills. Respiratory: Negative for shortness of ms3 breath, cough, wheezing, and pleuritic chest pain, Abdomen/GI: Negative for abdominal pain, nausea, vomiting, diarrhea, and constipation, MS/Extremity: Negative for injury and deformity, 10:54 Cardiovascular: Positive for chest pain, Exam: 10:54 Constitutional: This is a well developed, well nourished patient who is awake, alert, ms3 and in no acute distress. Chest/axilla: Normal chest wall appearance and motion. Nontender with no deformity. Cardiovascular: Regular rate and rhythm with a normal S1 and S2. No gallops, murmurs, or rubs. Normal PMI, no JVD. No pulse deficits. Respiratory: Lungs have equal breath sounds bilaterally, clear to auscultation and percussion. No rales, rhonchi or wheezes noted. No increased work of breathing, no retractions or nasal flaring. Abdomen/GI: Soft, non-tender, with normal bowel sounds. No distension or tympany. No guarding or rebound. No evidence of tenderness throughout. Skin: Warm, dry with normal turgor. Normal color with no rashes, no lesions, and no evidence of cellulitis. 10:54 ECG was reviewed by the Attending Physician. Vital Signs: 10:54 BP 137 / 93; Pulse 96; Resp 18; Temp 98; Pulse Ox 94% on R/A; Weight 111.13 kg; Height ll1 5 ft. 8 in. ; Pain 6/10; 12:05 BP 124 / 56; Pulse 97; Resp 19 S; Pulse Ox 96% on R/A; aa5 13:00 BP 146 / 91; Pulse 97; Resp 18 S; Pulse Ox 97% on R/A; aa5 14:00 BP 130 / 77; Pulse 68; Resp 16 S; Pulse Ox 95% on R/A; aa5 15:00 BP 156 / 94; Pulse 89; Resp 16 S; Temp 97.6(TE); Pulse Ox 95% on R/A; aa5 10:54 Body Mass Index 37.25 (111.13 kg, 172.72 cm) ll1 10:54 Pain Scale: Adult ll1 MDM: 10:53 Medical Screening Exam initiated ms3 10:54 Differential diagnosis: abnormal EKG, acute myocardial infarction, coronary artery ms3 disease. 20:34 HEART Score: History: Slightly Suspicious (0), ECG: Normal (0), Age: > 45 and < 65 ms3 years (1), Risk Factors: > or = 3 Risk factors for atherosclerotic disease (2), Troponin: > 1 and < 3 x normal limit (1), Total Score = 4. The patient was given aspirin in the Emergency Department. Data reviewed: vital signs, nurses notes, lab test result(s), EKG, radiologic studies, and as a result, I will admit patient. Consideration of Admission/Observation Patient was admitted/placed on observation. 20:34 Management of patient was discussed with the following: Hospitalist: Dr Trevizo- accepts ms3 patient. Binder And Box Builder: Dr Franks- Will consult. No heparin recommended. Obs with Hospitalist. I considered the following discharge prescriptions or medication management in the emergency department Medications were administered in the Emergency Department. See MAR. Independent interpretation of the following test(s) in the Emergency Department EKG: See my EKG interpretation above. Care significantly affected by the following chronic conditions: Hypertension. Counseling: I had a detailed discussion with the patient and/or guardian regarding the historical points, exam findings, and any diagnostic results supporting the discharge/admit diagnosis, lab results, radiology results, the need for further work-up and treatment in the hospital. ED course: Discussed necessity for observation with patient. Patient understands agrees with plan. All questions were answered.. 10/29 10:54 Order name: Basic Metabolic Panel; Complete Time: 12:46 ms3 10/29 10:54 Order name: CBC with Diff; Complete Time: 12:46 ms3 10/29 10:54 Order name: LFT's; Complete Time: 12:46 ms3 10/29 10:54 Order name: Magnesium; Complete Time: 12:46 ms3 10/29 10:54 Order name: NT PRO-BNP; Complete Time: 12:46 ms3 10/29 10:54 Order name: PT-INR; Complete Time: 12:46 ms3 10/29 10:54 Order name: Troponin HS; Complete Time: 12:46 ms3 10/29 14:23 Order name: Urinalysis w/ reflexes EDMS 10/29 14:23 Order name: Basic Metabolic Panel EDMS 10/29 14:23 Order name: Basic Metabolic Panel EDMS 10/29 14:23 Order name: Basic Metabolic Panel EDMS 10/29 14:23 Order name: Basic Metabolic Panel EDMS 10/29 14:23 Order name: CBC with Automated Diff EDMS 10/29 14:23 Order name: CBC with Automated Diff EDMS 10/29 14:23 Order name: CBC with Automated Diff EDMS 10/29 14:23 Order name: CBC with Automated Diff EDMS 10/29 14:23 Order name: Lipid Profile EDMS 10/29 14:23 Order name: Lipid Profile EDMS 10/29 14:23 Order name: Magnesium EDMS 10/29 14:23 Order name: Magnesium EDMS 10/29 14:23 Order name: Magnesium EDMS 10/29 14:23 Order name: Magnesium EDMS 10/29 14:23 Order name: Phosphorus EDMS 10/29 14:23 Order name: Phosphorus EDMS 10/29 14:23 Order name: Phosphorus EDMS 10/29 14:23 Order name: Phosphorus EDMS 10/29 14:23 Order name: Troponin High Sensitivity EDMS 10/29 14:23 Order name: Troponin High Sensitivity EDMS 10/29 14:23 Order name: Troponin High Sensitivity EDMS 10/29 10:54 Order name: XRAY Chest (1 view); Complete Time: 12:46 ms3 10/29 10:54 Order name: Cardiac monitoring; Complete Time: 11:05 ms3 10/29 10:54 Order name: EKG - Nurse/Tech; Complete Time: 10:56 ms3 10/29 10:54 Order name: IV Saline Lock; Complete Time: 11:08 ms3 10/29 10:54 Order name: Labs collected and sent; Complete Time: 11:08 ms3 10/29 10:54 Order name: O2 Per Protocol; Complete Time: 11:05 ms3 10/29 10:54 Order name: O2 Sat Monitoring; Complete Time: 11:05 ms3 10/29 12:11 Order name: EKG - Nurse/Tech; Complete Time: 12:11 aa5 EC:54 Rate is 96 beats/min. Rhythm is regular. QRS [place] is Normal. IA interval is normal. QRS ms3 interval is normal. Clinical impression: Normal ECG. Interpreted by me. Reviewed by me. 11:55 Rate is 98 beats/min. Rhythm is regular. QRS [place] is Normal. IA interval is normal. ms3 Clinical impression: Normal ECG. Interpreted by me. Reviewed by me. Administered Medications: 11:08 Drug: Aspirin PO Chewable Tablet 243 mg PO once; 81 mg tablets x 243 Route: PO; db 11:23 Drug: morphine IVP or IV 4 mg IVP once over 4 mins Route: IVP; Infused Over: 4 mins; aa5 Site: left antecubital; 11:30 Follow up: Response: No adverse reaction aa5 12:09 Drug: morphine IVP or IV 4 mg IVP once over 4 mins Route: IVP; Infused Over: 4 mins; aa5 Site: left antecubital; 12:30 Follow up: Response: No adverse reaction; Pain is decreased aa5 Disposition: 20:34 Critical Care:. ms3 Disposition Summary: 10/29/24 12:49 Hospitalization Ordered Notes: Hospitalization Status: Observation ms3 Provider: Demario Trevizo ms3 Location: Telemetry/MedSurg (observation) ms3 Condition: Stable ms3 Problem: new ms3 Symptoms: are unchanged ms3 Bed/Room Type: Standard ms3 Room Assignment: 208(10/29/24 14:42) bd Diagnosis - Subsequent non-ST elevation (NSTEMI) myocardial infarction ms3 - Chest pain, unspecified ms3 Forms: - Medication Reconciliation Form ms3 - SBAR form ms3 - Leadership Thank You Letter ms3 Critical care time excluding procedures: 20:34 Critical care time: Bedside Care: 30 minutes, Consultation: 10 minutes. Total time: 40 ms3 minutes Signatures: Dispatcher [employer] EDMS Chato Carol bd Megan Olson RN RN aa5 Erendira Pryor RN RN ll1 Dylan Laguna DO DO ms3 Maday Pinzon, RN RN db Corrections: (The following items were deleted from the chart) 10:54 10:54 BASIC METABOLIC PANEL+C.LAB.BRZ ordered. EDMS EDMS 10:54 10:54 CBC+H.LAB.BRZ ordered. EDMS EDMS 10:54 10:54 HEPATIC FUNCTION+C.LAB.BRZ ordered. EDMS EDMS 10:54 10:54 MAGNESIUM+C.LAB.BRZ ordered. EDMS EDMS 10:54 10:54 PROBNP+C.LAB.BRZ ordered. EDMS EDMS 10:54 10:54 PROTIME (+INR)+COAG.LAB.BRZ ordered. EDMS EDMS 10:54 10:54 Troponin High Sensitivity+C.LAB.BRZ ordered. EDMS EDMS 10:54 10:54 Chest Single View+RAD.RAD.BRZ ordered. EDMS EDMS 14:42 12:49 ms3 bd
--- NOTE | 2024-10-29 12:50 | ER ---
Nurse's Notes [facility] Name: Carrington Dumont Age: 49 yrs Sex: Male : 1975 Arrival Date: 10/29/2024 Time: 10:42 Bed 14 Private MD: Diagnosis: Subsequent non-ST elevation (NSTEMI) myocardial infarction;Chest pain, unspecified Presentation: 10/29 10:54 Chief complaint: Patient states: CP since last night. + SOB when pain is severe. ll1 Coronavirus screen: Client denies travel out of the [place] in the last 14 days. At this time, the client does not indicate any symptoms associated with coronavirus-19. Ebola Screen: Patient denies travel to an Ebola-affected area in the 21 days before illness onset. Initial Sepsis Screen: Does the patient meet any 2 criteria? No. Patient's initial sepsis screen is negative. Does the patient have a suspected source of infection? No. Patient's initial sepsis screen is negative. Risk Assessment: Do you want to hurt yourself or someone else? Patient reports no desire to harm self or others. Onset of symptoms was October 28, 2024. 10:54 Method Of Arrival: Ambulatory ll1 10:54 Acuity: DAYANNA 3 ll1 Historical: - Allergies: 10:44 PENICILLINS; ll1 - PMHx: 10:44 coronary atherosclerosis; Hypertension; Hypothyroidism; ll1 - PSHx: 10:44 Cholecystectomy; Stented artery; ll1 - Immunization history:: Adult Immunizations up to date. - Social history:: Smoking status: Patient reports the use of cigarette tobacco products, smokes one-half pack cigarettes per day. Screenin:00 [facility] ED Fall Risk Assessment (Adult) History of falling in the last 3 months, aa5 including since admission No falls in past 3 months (0 pts) Confusion or Disorientation No (0 pts) Intoxicated or Sedated No (0 pts) Impaired Gait No (0 pts) Mobility Assist Device Used No (0 pt) Altered Elimination No (0 pt) Score/Fall Risk Level 0 - 2 = Low Risk Oriented to surroundings, Maintained a safe environment, Educated pt \T\ family on fall prevention, incl call for assistance when getting out of bed. Abuse screen: Denies threats or abuse. Nutritional screening: No deficits noted. Tuberculosis screening: No symptoms or risk factors identified. Assessment: 11:00 General: Appears uncomfortable, Behavior is calm, cooperative. Pain: Complains of pain aa5 in anterior aspect of left upper chest and mid-sternal area Pain does not radiate. Pain currently is 6 out of 10 on a pain scale. Quality of pain is described as crampy, pressure, sharp, Pain began 1 day ago. Is intermittent, episodic. Neuro: Level of Consciousness is awake, alert, obeys commands, Oriented to person, place, time, situation. Cardiovascular: Reports chest pain, shortness of breath, Heart tones S1 S2 present Rhythm is sinus rhythm. Respiratory: Airway is patent Respiratory effort is even, unlabored, Respiratory pattern is regular, symmetrical. GI: Abdomen is round obese, Patient currently denies diarrhea, nausea, vomiting. : No signs and/or symptoms were reported regarding the genitourinary system. EENT: No signs and/or symptoms were reported regarding the EENT system. Derm: Skin is pink, warm \T\ dry. Musculoskeletal: Range of motion: intact in all extremities. 11:08 Reassessment: x-ray at bedside . aa5 11:50 Reassessment: Patient is alert, oriented x 3, equal unlabored respirations, skin aa5 warm/dry/pink. MD was notified of pain level and pt's behavior.. General: Appears uncomfortable, Behavior is crying. Pain: Complains of pain in chest Pain currently is 10 out of 10 on a pain scale. Quality of pain is described as crampy, pressure, sharp. 12:30 Reassessment: Patient is alert, oriented x 3, equal unlabored respirations, skin aa5 warm/dry/pink. Patient states feeling better. 14:00 Reassessment: Patient is alert, oriented x 3, equal unlabored respirations, skin aa5 warm/dry/pink. 14:00 Pain: Pain currently is 5 out of 10 on a pain scale. aa5 15:09 Reassessment: Report faxed to admitting nurse . aa5 15:50 Reassessment: Patient is alert, oriented x 3, equal unlabored respirations, skin aa5 warm/dry/pink. Vital Signs: 10:54 BP 137 / 93; Pulse 96; Resp 18; Temp 98; Pulse Ox 94% on R/A; Weight 111.13 kg; Height ll1 5 ft. 8 in. ; Pain 6/10; 12:05 BP 124 / 56; Pulse 97; Resp 19 S; Pulse Ox 96% on R/A; aa5 13:00 BP 146 / 91; Pulse 97; Resp 18 S; Pulse Ox 97% on R/A; aa5 14:00 BP 130 / 77; Pulse 68; Resp 16 S; Pulse Ox 95% on R/A; aa5 15:00 BP 156 / 94; Pulse 89; Resp 16 S; Temp 97.6(TE); Pulse Ox 95% on R/A; aa5 10:54 Body Mass Index 37.25 (111.13 kg, 172.72 cm) ll1 10:54 Pain Scale: Adult ll1 ED Course: 10:43 Patient arrived in ED. ra3 10:44 Shala Grace MD is Attending Physician. sp3 10:44 Attending Physician role handed off by Shala Grace MD ms3 10:44 Dylan Laguna DO is Attending Physician. ms3 10:44 Arm band placed on Patient placed in an exam room, on a stretcher. ll1 10:55 Triage completed. ll1 10:56 Erendira Pryor, RN is Primary Nurse. ll1 11:00 Patient has correct armband on for positive identification. Bed in low position. Call aa5 light in reach. Side rails up X 1. Client placed on continuous cardiac and pulse oximetry monitoring. NIBP monitoring applied. radiation monitor on. Pulse ox on. NIBP on. 11:06 Initial lab(s) drawn, by me, sent to lab. Inserted saline lock: 20 gauge in left aa5 antecubital area, using aseptic technique. Blood collected. Flushed with 10 mL NS. 11:17 XRAY Chest (1 view) In Process Unspecified. EDMS 11:58 Notified ED physician of a critical lab result(s). troponin 93.3. ll1 12:49 Demario Trevizo is Hospitalizing Provider. ms3 13:52 No provider procedures requiring assistance completed. aa5 15:50 Patient admitted, IV remains in place. aa5 Administered Medications: 11:08 Drug: Aspirin PO Chewable Tablet 243 mg PO once; 81 mg tablets x 243 Route: PO; db 11:23 Drug: morphine IVP or IV 4 mg IVP once over 4 mins Route: IVP; Infused Over: 4 mins; aa5 Site: left antecubital; 11:30 Follow up: Response: No adverse reaction aa5 12:09 Drug: morphine IVP or IV 4 mg IVP once over 4 mins Route: IVP; Infused Over: 4 mins; aa5 Site: left antecubital; 12:30 Follow up: Response: No adverse reaction; Pain is decreased aa5 Medication: 13:52 VIS not applicable for this client. aa5 Outcome: 12:49 Decision to Hospitalize by Provider. ms3 15:50 Admitted to Tele accompanied by tech, via wheelchair, with chart, aa5 15:50 Condition: stable 15:50 Discharge instructions given to patient, Instructed on the need for admit, Demonstrated understanding of instructions, 15:54 Patient left the ED. tm6 Signatures: Dispatcher [employer] EDMS Megan Olson RN RN aa5 Erendira Pryor RN RN ll1 Dylan Laguna DO DO ms3 Shala Grace MD MD sp3 Maday Pinzon RN RN Anthony Stevenson RN RN tm6 April Dugan ra3 Corrections: (The following items were deleted from the chart) 10:57 10:54 Pulse 96bpm; Resp 18bpm; Pulse Ox 94% RA; Temp 98F; 111.13 kg; Height 5 ft. 8 ll1 in.; BMI: 37.2; Pain 6/10, Adult; ll1
--- NOTE | 2024-10-29 14:09 | P.HP ---
Certification for Inpatient Patient admitted to: Observation With expected LOS: <2 Midnights Practitioner: I am a practitioner with admitting privileges, knowledge of patient current condition, hospital course, and medical plan of care. Services: Services provided to patient in accordance with Admission requirements found in Title 42 Section 412.3 of the Code of Federal Regulations Patient History Date of Service: 10/29/24 Reason for admission: Chest pain r/o PA History of Present Illness: Carrington Dumont is a 49 year old male with Pmhx coronary atherosclerosis with stent, Hypertension, Hypothyroidism who presents to the ED with c/o chest pain radiating to his right arm causing his hand to be clammy that started last night with a reported blood pressure of 200/100. He reports being compliant with his medications. He is s/p PCI of LAD in September,. Evaluation in the ED, Troponin 93.3 which is decreased since last admission. Chest xray reports "No acute intrathoracic abnormalities." Dr. Franks present at time of evaluation, Right arm tingling might be continued healing from the PCI in September. Will continue to monitor. Initial vitals BP 137 / 93; Pulse 96; Resp 18; Temp 98; Pulse Ox 94% on R/A Carrington will be admitted to hospitalist service for further evaluation of chest pain and elevated blood pressure, Dr. Franks consulted. Allergies Penicillins Allergy (Intermediate, Verified 03/10/24 01:47) Hives/Rash Home Medications: Levothyroxine Sodium [Synthroid] 1 tab PO DAILY 02/05/24 Aspirin Chewable [Aspirin Chewable*] 81 mg PO DAILY #30 tab.chew 02/07/24 Metoprolol Tartrate 1 tab PO BID 10/12/24 Atorvastatin Calcium [Lipitor] 40 mg PO BEDTIME #30 tab 10/15/24 Clopidogrel Bisulfate [Plavix] 75 mg PO DAILY #30 tab 10/15/24 - Past Medical/Surgical History Diabetic: No -: HDL -: HTN -: HYPOTHYROIDISM -: [place], PCI, 02/10 -: RAMIRO -: PCI - Family History Mother -: Hypertension Father -: Hypertension, Diabetes - Social History Smoking Status: Never smoker Alcohol use: No CD- Drugs: No Caffeine use: Yes Review of Systems Cardiovascular: Chest Pain, Other (radiates down right arm) Physical Examination - Physical Exam General: Alert, In no apparent distress, Oriented x3 HEENT: Atraumatic, Normocephalic Neck: Supple, 2+ carotid pulse no bruit Respiratory: Clear to auscultation bilaterally, Normal air movement Cardiovascular: Normal pulses, Regular rate/rhythm, Normal S1 S2 Capillary refill: <2 Seconds Gastrointestinal: Normal bowel sounds, Soft and benign, Distended (obese) Musculoskeletal: No clubbing Integumentary: No rashes Neurological: Normal speech, Normal tone - Studies Laboratory Data (last 24 hrs) 10/29/24 10/29/24 10/29/24 11:06 11:06 11:06 WBC 8.50 Hgb 15.1 Hct 43.3 Plt Count 294 PT 11.4 INR 1.02 Sodium 135 L Potassium 3.9 BUN 12 Creatinine 0.86 Glucose 221 H Magnesium 2.1 Total Bilirubin 0.3 AST 12 L ALT 30 Alkaline Phosphatase 96 Assessment and Plan - Plan Assessment and plan Chest pain rule out CAD S/P stent Elevated troponin Hypertension -control blood pressure -trend troponin -EKG with no ST abnormality -Chest xray reports No acute intrathoracic abnormalities. -Continuous telemetry -Cardiology consulted, recommend blood pressure control, no heparin -Restart Plavix, aspirin, Lipitor, metoprolol -Pain control -Recent echo 10/11/2024 (EF 60 to 65%, trace mitral regurgitation) Hypothyroidism Hyperlipidemia -Continue home medication DVT PPx SCDs Full code 24-hour OBS Discharge Plan: Home Plan to discharge in: 24 Hours - Advance Directives Does patient have a Living Will: No Does patient have a Durable POA for Healthcare: No
[2024-10-29] MEDS: METOPROLOL TAR 25 MG TAB PO SCH (15:00)
[2024-10-29] MEDS ORDERED: MORPHINE 2 MG/ML SYR ONE (15:33)
[2024-10-29] MEDS: MORPHINE 2 MG/ML SYR IV PRN (15:37)
[2024-10-29 16:04] VITALS: O2SAT 95
--- NOTE | 2024-10-29 16:24 | P.CNS ---
Date of Consult: 10/29/24 Chief Complaint: Chest pain r/o NC History of Present Illness: Patient with PMH of CAD s/p PCI of OM and recent PCI of LAD with remnant moderate diffuse disease in his coronaries, presented with chest pain that started yesterday, sharp left sided, on/off, assoicated with high BP, he says his readings were in the 200 systolic, denies palpitations, no syncope. Allergies Penicillins Allergy (Intermediate, Verified 03/10/24 01:47) Hives/Rash Home medications list reviewed: Yes Home Medications: Levothyroxine Sodium [Synthroid] 1 tab PO DAILY 02/05/24 Aspirin Chewable [Aspirin Chewable*] 81 mg PO DAILY #30 tab.chew 02/07/24 Isosorbide Mononitrate [Isosorbide Mononitrate ER] 30 mg PO DAILY 30 Days #30 tab 09/24/24 Metoprolol Tartrate 1 tab PO BID 10/12/24 Atorvastatin Calcium [Lipitor] 40 mg PO BEDTIME #30 tab 10/15/24 Clopidogrel Bisulfate [Plavix] 75 mg PO DAILY #30 tab 10/15/24 - Past Medical/Surgical History Diabetic: No -: HDL -: HTN -: HYPOTHYROIDISM -: [place], PCI, 02/10 -: RAMIRO -: PCI - Family History Mother Medical History: Hypertension Father Medical History: Hypertension, Diabetes - Social History Smoking Status: Current every day smoker Alcohol use: No CD- Drugs: No Caffeine use: Yes Review of Systems 10-point ROS is otherwise unremarkable Physical Examination Temp Pulse Resp BP Pulse Ox 97.6 F 89 16 156/94 H 99 10/29/24 16:04 10/29/24 16:04 10/29/24 16:04 10/29/24 16:04 10/29/24 15:37 General: Alert, In no apparent distress HEENT: Atraumatic, PERRLA, Mucous membr. moist/pink, EOMI, Sclerae nonicteric Neck: Supple, 2+ carotid pulse no bruit, No LAD, Without JVD or thyroid abnormality Respiratory: Clear to auscultation bilaterally, Normal air movement Cardiovascular: Regular rate/rhythm, Normal S1 S2 Gastrointestinal: Normal bowel sounds, No tenderness Musculoskeletal: No tenderness Integumentary: No rashes Neurological: Normal gait, Normal speech, Normal tone, Normal affect Lymphatics: No axilla or inguinal lymphadenopathy Laboratory Data (last 24 hrs) 10/29/24 10/29/24 10/29/24 11:06 11:06 11:06 WBC 8.50 Hgb 15.1 Hct 43.3 Plt Count 294 PT 11.4 INR 1.02 Sodium 135 L Potassium 3.9 BUN 12 Creatinine 0.86 Glucose 221 H Magnesium 2.1 Total Bilirubin 0.3 AST 12 L ALT 30 Alkaline Phosphatase 96 - Problems (1) CAD (coronary artery disease) Current Visit: No Status: Acute Plan: patient had recent PCI of LAD, still got mid to distal 50-60% that is not amenable to PCI, also got LCX into OM stent with some diagonal and OM disease that was left for medical management, history of RCA stent in the past. Patient troponin is mild elevated, most likely secondary to type 2 NC from high BP - continue to trend troponin for 3 sets. - continue ASA and Plavix - Continue Lipitor (2) HLD (hyperlipidemia) Current Visit: No Status: Acute Plan: continue lipitor (3) HTN (hypertension) Current Visit: No Status: Acute Plan: reconcile and resume patient home medications and continue to monitor BP
[2024-10-29] MEDS: ACETAMINOPHEN 325 MG TABLET PO PRN (17:17)
[2024-10-29 17:56] VITALS: BMI 37.2
[2024-10-29 18:40] LABS: Specific Gravity 1.026 (1.005-1.030); Urine Bilirubin NEGATIVE (Negative); Urine Blood Negative (Negative); Urine Clarity Clear (Clear); Urine Color Light-Yellow (Yellow); Urine Glucose 2+ (Negative); Urine Ketones NEGATIVE (Negative); Urine Microscopic Reflex YN NO UMIC; Urine Nitrite NEGATIVE (Negative); Urine Protein NEGATIVE (Negative); Urine Urobilinogen Normal (Normal); Urine pH 5.5 (5.0-7.0)
[2024-10-29] MEDS: ATORVASTATIN 40 MG TAB PO SCH (20:25)
[2024-10-29] MEDS: HYDROMORPHONE HCL 2 MG/ML inj IV PRN (23:06)
[2024-10-30] MEDS: MORPHINE 2 MG/ML SYR IV PRN (02:49)
[2024-10-30 04:52] LABS: Absolute Basophils 0.1 K/uL (0-0.5); Absolute Eosinophils 0.2 K/uL (0-0.5); Absolute Lymphocytes (CBC) 2.2 K/uL (0.7-4.9); Absolute Monocytes 0.6 K/uL (0.1-1.3); Absolute Neutrophil 4.1 K/uL (1.8-8.0); Basophils % 1.1 % (0-1.3); Eosinophils % 2.9 % (0-4.4); Hematocrit 41.4 % (39.6-49.0); Hemoglobin 14.2 g/dL (13.6-17.9); Lymphocytes % 30.6 % (15.3-44.8); MCH 31.3 pg (27.0-35.0); MCHC 34.4 g/dL (32.0-36.0); MCV 91.2 fL (80-100); MPV 7.2 fL (7.6-11.3); Monocytes % 7.8 % (3.3-12.3); Neutrophils % 57.6 % (41.7-73.7); Platelets 290 thou/uL (152-406); RBC Red Blood Cell Count 4.53 M/uL (4.33-5.43); Red Cell Distribution Width 13.5 % (12.1-15.2)
[2024-10-30 05:42] LABS: Anion Gap 8.1 mEq/L (5.0-15.0); Magnesium 2.2 mg/dL (1.6-2.4); Phosphorus 4.6 mg/dL (2.5-4.9); Potassium 4.1 mEq/L (3.5-5.1)
[2024-10-30] MEDS: LEVOTHYROXINE SOD 0.1 MG TAB PO SCH (06:06)
[2024-10-30 06:12] VITALS: BP 140/81; TEMP 97.6
[2024-10-30] MEDS: CLOPIDOGREL 75 MG TABLET PO SCH (08:11)
[2024-10-30] MEDS: ASPIRIN EC 81 MG TAB PO SCH (08:11)
[2024-10-30] MEDS ORDERED: LEVOTHYROXINE SODIUM 300 MCG PO SCH (09:00)
--- NOTE | 2024-10-30 11:02 | RAD REPORT ---
EXAMINATION: CT Abdomen Pelvis W Contrast CLINICAL INDICATION: Male, 49 years old. Abdominal pain and tenderness TECHNIQUE: CT abdomen and pelvis was performed, after the administration of IV contrast, as per [facility] [employer] protocol. Axial, sagittal and coronal reconstructions were obtained. One or more of the following dose reduction techniques were used: Automated exposure control, adjustment of the mA and k V according to patient size, and iterative reconstruction. Unless otherwise specified, incidental findings do not require dedicated imaging follow-up. COMPARISON: 02/05/2024 FINDINGS: LOWER CHEST: The visualized lung bases are clear. LIVER: Mild fatty liver is present. No focal lesion or biliary dilataion is seen. BILIARY SYSTEM: Status post cholecystectomy. SPLEEN: Normal size. No focal lesion. PANCREAS: No mass, ductal dilation, or kayley-pancreatic fluid. ADRENALS: Normal; no mass. KIDNEYS: Normal size and contour. No hydronephrosis. URINARY BLADDER: Unremarkable. GASTROINTESTINAL TRACT: No evidence of free air, significant intra-abdominal free fluid, bowel obstru ction or abscess. APPENDIX: Normal appendix. LYMPH NODES: No lymphadenopathy. MUSCULOSKELETAL: No acute or suspicious osseous abnormality. ADDITIONAL FINDINGS: None. IMPRESSION: No acute or concerning abnormalities seen in the abdomen or pelvis. Mild hepatic steatosis.
--- NOTE | 2024-10-30 13:05 | P.DS ---
Admission Date: 10/29/24 Discharge Date: 10/30/24 Disposition: ROUTINE DISCHARGE Discharge Condition: GOOD Reason for Admission: Chest pain r/o [place] Brief History of Present Illness: Diagnosis Chest pain rule out CAD S/P stent Elevated troponin Hypertension Hypothyroidism Hyperlipidemia HPI 10/30/2024 Carrington Dumont is a 49 year old male with Pmhx coronary atherosclerosis with stent, Hypertension, Hypothyroidism who presents to the ED with c/o chest pain radiating to his right arm causing his hand to be clammy that started last night with a reported blood pressure of 200/100. He reports being compliant with his medications. He is s/p PCI of LAD in September,. Evaluation in the ED, Troponin 93.3 which is decreased since last admission. Chest xray reports "No acute intrathoracic abnormalities." Dr. Franks present at time of evaluation, Right arm tingling might be continued healing from the PCI in September. Will continue to monitor. Initial vitals BP 137 / 93; Pulse 96; Resp 18; Temp 98; Pulse Ox 94% on R/A Carrington will be admitted to hospitalist service for further evaluation of chest pain and elevated blood pressure, Dr. Franks consulted. Hospital Course: [text] Blood pressure has been regulated this admission. Complaining of upper left quadrant pain, lipase normal, CT abdomen pelvis with no acute findings. Continue home medications and check blood pressure regularly On 10/30/2024, Luis was seen on morning rounds and deemed medically stable for discharge. [text] was discharged with instructions to schedule follow-up appointments with [text]. [text] was provided prescriptions for [text]. Physical Exam General: Alert, In no apparent distress, Oriented x3 HEENT: Atraumatic, Normocephalic Neck: Supple, 2+ carotid pulse no bruit Respiratory: Clear to auscultation bilaterally, Normal air movement Cardiovascular: Normal pulses, Regular rate/rhythm, Normal S1 S2 Capillary refill: <2 Seconds Gastrointestinal: Normal bowel sounds, Soft and benign, Distended (obese) Musculoskeletal: No clubbing Integumentary: No rashes Neurological: Normal speech, Normal tone Vital Signs/Physical Exam: Temp Pulse Resp BP Pulse Ox 97.9 F 66 20 133/75 97 10/30/24 12:00 10/30/24 12:10/30/24 12:10/30/24 12:00 10/30/24 12:00 Laboratory Data at Discharge: WBC 7.10 thou/uL (4.3-10.9) 10/30/24 04:27 Hgb 14.2 g/dL (13.6-17.9) 10/30/24 04:27 Hct 41.4 % (39.6-49.0) 10/30/24 04:27 Plt Count 290 thou/uL (152-406) 10/30/24 04:27 PT 11.4 SECONDS (9.4-12.5) 10/29/24 11:06 INR 1.02 10/29/24 11:06 Sodium 135 mEq/L (136-145) L 10/30/24 04:27 Potassium 4.1 mEq/L (3.5-5.1) 10/30/24 04:27 BUN 16 mg/dL (7-18) 10/30/24 04:27 Creatinine 0.79 mg/dL (0.70-1.30) 10/30/24 04:27 Glucose 120 mg/dL (74-106) H 10/30/24 04:27 Phosphorus 4.6 mg/dL (2.5-4.9) 10/30/24 04:27 Magnesium 2.2 mg/dL (1.6-2.4) 10/30/24 04:27 Total Bilirubin 0.3 mg/dL (0.2-1.0) 10/29/24 11:06 AST 12 U/L (15-37) L 10/29/24 11:06 ALT 30 U/L (16-61) 10/29/24 11:06 Alkaline Phosphatase 96 U/L (45-117) 10/29/24 11:06 Triglycerides 164 mg/dL (<150) H 10/30/24 04:27 Cholesterol 139 mg/dL (<200) 10/30/24 04:27 HDL Cholesterol 35 mg/dL (40-60) L 10/30/24 04:27 Cholesterol/HDL Ratio 3.97 10/30/24 04:27 Lipase 26 U/L (13-75) 10/30/24 04:27 Home Medications: Levothyroxine Sodium [Synthroid] 1 tab PO DAILY 02/05/24 Aspirin Chewable [Aspirin Chewable*] 81 mg PO DAILY #30 tab.chew 02/07/24 Metoprolol Tartrate 1 tab PO BID 10/12/24 Atorvastatin Calcium [Lipitor] 40 mg PO BEDTIME #30 tab 10/15/24 Clopidogrel Bisulfate [Plavix] 75 mg PO DAILY #30 tab 10/15/24 Ciprofloxacin HCl [Cipro 500 MG Tablet] 500 mg PO BID 5 Days #10 tab 10/30/24 traMADol HCL [Ultram*] 50 mg PO Q6H PRN 5 Days #15 tab 10/30/24 New Medications: Ciprofloxacin HCl [Cipro 500 MG Tablet] 500 mg PO BID 5 Days #10 tab traMADol HCL [Ultram*] 50 mg PO Q6H PRN 5 Days #15 tab PRN Reason: Pain Physician Discharge Instructions: Continue to control your blood pressure. Antibiotics ordered for likely enteritis associated with abdominal pain Continue home medications Follow up with Dr. Franks 1. Please call and schedule a follow-up appointment with your PCP in 3-5 days - Please follow-up with your PCP for medication refills/adjustments 2. Please call and schedule a follow-up appointment with Dr. Franks in one week 3. Continue heart healthy diet 4. no activity restrictions 5. Return to the ED if symptoms worsen New medications ciprofloxacin 500 mg twice daily tramadol 50mg q6h PRN for pain Diet: AHA Activity: Ad mono Followup: NONE,NONE [Primary Care Provider] - Ganga Franks MD [ACTIVE - CAN ADMIT] -
--- NOTE | 2024-11-01 10:52 | EKG ---
Test Date: 2024-10-29 Test Time: 10:49:43 Instrumentation And Control Technician: LML MEASUREMENT RESULTS: Intervals: Rate: 96 NC: 126 QRSD: 88 QT: 356 QTc: 449 [place]: P: 49 NC: 126 QRS: 58 T: 4 INTERPRETIVE STATEMENTS: Normal sinus rhythm Normal ECG Compared to ECG 10/11/2024 20:17:52 No significant changes Electronically Signed On 11-01-24 10:50:06 CLINICAL WRITER by Ganga Franks
== END 2024-10-30 14:02 | disposition home or self-care (01) ==
LOC: ER 10:42 → ERHOLD 14:16 → 2ND 16:23
PROVIDERS: ADMIT Internal Medicine; ATTEND Internal Medicine
DX: R07.9 Chest pain, unspecified (principal); I25.10 Atherosclerotic heart disease of native coronary artery without angina pectoris; I10 Essential (primary) hypertension; E03.9 Hypothyroidism, unspecified; F17.210 Nicotine dependence, cigarettes, uncomplicated; R79.89 Other specified abnormal findings of blood chemistry; Z95.5 Presence of coronary angioplasty implant and graft; Z88.0 Allergy status to penicillin
CPT/HCPCS: 85025 ×2; 80048 ×2; 36415; 83735 ×2; 84100; 85610; 80061; 82947 ×5; 80076; 81003; 84484 ×3; 83690; 83880; 74177; 71045; 96374; 99285; Q9967; J1171; J2270 ×4; 93005; G0378

== ENCOUNTER 2024-11-26 19:28 | Emergency (ER) | payer OTHER ==
--- OUTSIDE RECORDS SUMMARY | 2024-11-26 19:36 | XMS REPORT | Continuity of Care Document ---
Author Name Unknown Address [address] [facility] [place] [address] [facility] Address [address] [facility] [address] [place] [address] Care Team Providers Care Strategic Partner Development Manager Name Role Phone PCP, PATIENT DOES NOT HAVE A Primary Care Physic bala Unavailable ELSA WHITE Attending Clinician Unavailable ELSA WHITE Attending Clinician Unavailable Elsa White NP Attending Clinician [phone] Doctor Unassigned, [place] Attending Clinician U BABS Cohen Attending Clinician Unavailable CHAPITO CONTRERAS Attending Clinician Unavailable CHAPITO CONTRERAS Attending Clinician Unavailable Nidia SOLANO Attending Clinician Unavailable Nidia SOLANO Attending Clinician Unavailable JOSE FRANCISCO WALTERS Attending Clinician Unavailable Jose Francisco Walters MD Attending Clinician [phone] LOREN TAM Attending Clinician Unavailable LOREN TAM Attending Clinician Unavailable Loren Tam DO Attending Clinician [phone] Patrick Garrett Attending Clinician [phone] PATRICK VERGARA Attending Clinician Unavailable SOFIA ESCOBAR Attending Clinician Unavailable SOFIA ESCOBAR Attending Clinician Unavailable MARIE MORALES Attending Clinician UnavailMarie Andrwes DO Attending Clinician [phone] SAQIB CLARKE Attending Clinician Unavailable Saqib Clakre DO Attending Clinician [phone] BENJAMIN ASHFORD Attending Clinician Unavailable Benjamin Ashford MD Attending Clinician [phone] Geoff Cardona MD Attending Clinician [phone] GEOFF CARDONA Attending Clinician Unavailable Kiki Mathur MD Attending Clinician [phone] KIKI MATHUR Attending Clinician UnavailGricelda Sherman MD Attending Clinician [phone] MARIBELL CEDILLO Attending Clinician UnavailBABS Garza Admitting Clinician Unavailable JOSE FRANCISCO WALTERS Admitting Clinician Unavailable CHAPITO CONTRERAS Admitting Clinician Unavailable LOREN TAM Admitting Clinician Unavailable PATRICK VERGARA Admitting Clinician Unavailable Nidia SOLANO Admitting Clinician Unavailable MARIE MORALES Admitting Clinician UnavailGricelda Morales MD Admitting Clinician [phone] EMERGENCY ROOM, EMERGENCY Admitting Clinician Un available Payers Payer Name Policy Type Policy Number Effective Date Expirati on Date Source [facility] [id number] 2023 00:00:00 Problems Condition Name Condition Details Condition Category Status Onset Date Resolution Date Last Treatment Date Treating Clinician Comments Source Obesity (BMI 30-39.9) Obesity (BMI 30-39.9) Disease Active 720 00:00: 00 [facility] Cigarette nicotine dependence without complicati on Cigarette nicotine dependence without complicati on Disease Active 2019-10 00:00: 00 [facility] Cigarette nicotine dependence without complicati on Cigarette nicotine dependence without complicati on Disease Active 2019-10 00:00: 00 [facility] Atypical chest pain Atypical chest pain Disease Active 2019-10 00:00: 00 [facility] Essential hypertensi on Essential hypertensi on Disease Active 2019-10 00:00: 00 [facility] No known active problems No known active problems Disease [facility] Allergies, Adverse Reactions, Alerts Allergy Name Allergy Type Status Severity Reaction(s) Onset Date Inactive Date Treating Clinician Comments Source Penicill in Propensi ty to adverse reaction s Active Unknown - See comments 03-30 00:00: 00 [facility] PENICILL IN DRUG INGREDI Active Unknown-Cmnt 03-30 00:00: 00 [facility] NO KNOWN ALLERGIE S Drug Class Active [facility] Social History Social Habit Start Date Stop Date Quantity Comments Source History of tobacco use Cigarette Smoker [facility] History SDOH Alcohol Frequency [facility] History SDOH [facility] Alcohol Binge [facility] Gender identity [facility] Alcoholic beverage intake 2024-11-13 00:00:00 2024-11-13 00:00:00 Current drinker of alcohol (finding) [facility] Alcohol intake 2024-02-04 00:00:00 2024-02-04 00:00:00 Current drinker of alcohol (finding) [facility] Exposure to SARS-CoV-2 (event) 2023-02-10 00:00:00 2023-02-20 18:06:00 Not sure [facility] Cigarettes smoked current (pack per day) - Reported 2021-05-08 00:00:00 2021-05-08 00:00:00 [facility] Alcohol Comment 2021-05-08 00:00:00 2021-05-08 00:00:00 6beers on the weekend [facility] Tobacco use and exposure 2021-05-08 00:00:00 2021-05-08 00:00:00 Smokeless tobacco non-user [facility] History of Social function 2020-08-29 00:00:00 2020-08-29 00:00:00 [facility] Sex assigned at 1975 00:00:00 1975 00:00:00 [facility] Smoking Status Start Date Stop Date Source Smokes tobacco daily 2021-05-08 00:00:00 [facility] Never smoker [facility] Unknown if ever smoked [facility] Medications Ordered Medication Name Filled Medication Name Start Date Stop Date Current Medication? Ordering Clinician Indication Dosage Frequency Signature (SIG) Comments Components Source amoxicillin 500 mg tablet 1-25 00:00: 00 11-24 05:59 :00 Yes [id number] 500mg Take 1 tablet by mouth 3 (three) times daily for 10 days. [facility] iopamidol (ISOVUE 370-500 mL) injection 85 mL 02-03 18:00: 00 02-03 18:00 :00 No [id number] 85mL 85 mL, Intravenou s, ONCE, 1 dose, On Fri02/04/24 at 1300, Routine [facility] morpHINE (2 mg/mL) injection 2 mg 02-03 17:45: 00 02-03 18:48 :00 No 2mg 2 mg, Slow IV Push, ONCE, 1 dose, On Fri02/04/24 at 1245, STAT [facility] ondansetron (ZOFRAN (PF)) injection 4 mg 02-03 16:30: 00 02-03 17:15 :00 No 4mg 4 mg, Slow IV Push, ONCE, 1 dose, On Fri02/04/24 at 1130, FAWN [facility] ketorolac (TORADOL) injection 15 mg 02-03 16:30: 00 02-03 17:16 :00 No 15mg 15 mg, Slow IV Push, ONCE, 1 dose, On Fri02/04/24 at 1130, FAWN [facility] sodium chloride (NS) injection 5 mL 02-03 15:28: 49 Yes 5mL 5 mL, Intravenou s, PRN, Starting on Fri02/04/24 at 1028, Until Discontinu ed, Routine, IV line flushing [facility] dicyclomine (BENTYL) injection 20 mg 12-27 09:15: 00 Yes 20mg 20 mg, Intramuscu lar, QID, First dose on Fri12/28/23 at 0415, Until Discontinu ed, Routine [facility] maalox:diph enhydrAMINE :lidocaine 2 % viscous 1:1:1 ([facility]) oral suspension 15 mL 12-27 08:30: 00 12-27 08:27 :00 No 15mL 15 mL, Oral, ONCE, 1 dose, On Mobile 12/28/23 at 0330, Routine [facility] maalox:diph enhydrAMINE :lidocaine 2 % viscous 1:1:1 ([facility]) oral suspension 15 mL 11-06 07:15: 00 11-06 07:38 :00 No 15mL 15 mL, Oral, ONCE, 1 dose, On Ale 11/06/23 at 0115, Routine [facility] famotidine (PEPCID (PF)) injection 20 mg 11-06 07:15: 00 11-06 07:38 :00 No 20mg 20 mg, Slow IV Push, ONCE, 1 dose, On Ale 11/06/23 at 0115, FAWN [facility] NaCl 0.9% (NS) bolus infusion 1,000 mL 11-06 07:15: 00 11-06 07:38 :00 No 1000mL at 999 mL/hr, 1,000 mL, IV Infusion, ONCE, 1 dose, On Ale 11/06/23 at 0115, STAT [facility] ondansetron (ZOFRAN (PF)) injection 4 mg 11-06 07:15: 00 11-06 06:19 :00 No 4mg 4 mg, Slow IV Push, ONCE, 1 dose, On Ale 11/06/23 at 0115, FAWN [facility] dicyclomine (BENTYL) injection 20 mg 11-06 07:00: 00 11-06 07:00 :00 No 20mg 20 mg, Intramuscu lar, ONCE, 1 dose, On Ale 11/06/23 at 0100, Routine [facility] dicyclomine 20 mg tablet 11-06 00:00: 00 Yes 20mg Take 1 tablet by mouth 4 (four) times daily. Indication s: abdominal pain [facility] famotidine (PEPCID) 40 mg tablet 11-06 00:00: 00 Yes [id number] 40mg Take 1 tablet by mouth daily. [facility] acetaminoph en (TYLENOL) tablet 650 mg 11-01 09:30: 00 11-01 09:30 :00 No 650mg 650 mg, Oral, ONCE, 1 dose, On 11/01/23 at 0330, FAWN [facility] iopamidol (ISOVUE 370-500 mL) injection 100 mL 11-01 09:30: 00 11-01 09:30 :00 No [id number] 100mL 100 mL, Intravenou s, ONCE, 1 dose, On 11/01/23 at 0330, Routine [facility] morpHINE (4 mg/mL) injection 4 mg 11-01 07:00: 00 11-01 06:56 :00 No 4mg 4 mg, Slow IV Push, ONCE, 1 dose, On 11/01/23 at 0100, STAT [facility] ketorolac (TORADOL) injection 30 mg 11-01 06:45: 00 11-01 06:00 :00 No 30mg 30 mg, Slow IV Push, ONCE, 1 dose, On 11/01/23 at 0045, FAWN [facility] NaCl 0.9% (NS) bolus infusion 1,000 mL 11-01 06:45: 00 11-01 07:59 :00 No 1000mL at 999 mL/hr, 1,000 mL, IV Piggyback, ONCE, 1 dose, On 11/01/23 at 0045, STAT [facility] ondansetron (ZOFRAN (PF)) injection 4 mg 11-01 06:00: 00 11-01 05:59 :00 No 4mg 4 mg, Slow IV Push, ONCE, 1 dose, On 11/01/23 at 0000, FAWN [facility] morpHINE (4 mg/mL) injection 4 mg 11-01 06:00: 00 11-01 06:00 :00 No 4mg 4 mg, Slow IV Push, ONCE, 1 dose, On 11/01/23 at 0000, STAT [facility] famotidine (PEPCID) 20 mg tablet 11-01 00:00: 00 Yes [id number] 20mg Take 1 tablet by mouth 2 (two) times daily. [facility] dicyclomine 20 mg tablet 11-01 00:00: 00 Yes [id number] 20mg Take 1 tablet by mouth 3 (three) times daily as needed for Abdominal pain. [facility] iopamidol (ISOVUE 370-500 mL) injection 100 mL 10-23 08:00: 00 10-23 08:00 :00 No [id number] 100mL 100 mL, Intravenou s, ONCE, 1 dose, On Ale 10/23/23 at 0200, Routine [facility] FENTanyl PF (SUBLIMAZE (PF)) injection 50 mcg 10-23 08:00: 00 10-23 07:01 :00 No 50ug 50 mcg, Slow IV Push, ONCE, 1 dose, On Ale 10/23/23 at 0200, Routine [facility] ketorolac (TORADOL) injection 30 mg 10-23 07:15: 00 10-23 06:08 :00 No 30mg 30 mg, Slow IV Push, ONCE, 1 dose, On Ale 10/23/23 at 0115, Routine [facility] ondansetron (ZOFRAN (PF)) injection 4 mg 10-23 06:15: 00 10-23 06:08 :00 No 4mg 4 mg, Slow IV Push, ONCE, 1 dose, On Ale 10/23/23 at 0015, FAWN [facility] ketorolac 10 mg tablet 10-23 00:00: 00 Yes [id number] 10mg Take 1 tablet by mouth every 6 (six) hours as needed for Pain (scale 7-10). [facility] iopamidol (ISOVUE 370-500 mL) injection 100 mL 2022-10- 07:15: 00 09-26 07:15 :00 No [id number] 100mL 100 mL, Intravenou s, ONCE, 1 dose, On Fri09/26/23 at 0115, Routine [facility] ketorolac (TORADOL) injection 30 mg 2022-10 07:00: 00 09-26 06:12 :00 No 30mg 30 mg, Slow IV Push, ONCE, 1 dose, On Fri09/26/23 at 0100, Routine [facility] NaCl 0.9% (NS) bolus infusion 1,000 mL 2022-10 06:00: 00 09-26 06:15 :00 No 1000mL at 999 mL/hr, 1,000 mL, IV Infusion, ONCE, 1 dose, On Fri09/26/23 at 0000, FAWN [facility] morpHINE (4 mg/mL) injection 4 mg 2022-10 05:30: 00 09-26 05:19 :00 No 4mg 4 mg, Slow IV Push, ONCE, 1 dose, On Ale 09/25/23 at 2330, STAT [facility] lactulose (CEPHULAC) solution 60 mL 2022-10 05:15: 00 09-26 05:13 :00 No 60mL 60 mL, Oral, ONCE, 1 dose, On Ale 09/25/23 at 2315, FAWN [facility] ondansetron (ZOFRAN (PF)) injection 4 mg 2022-10 05:15: 00 09-26 05:13 :00 No 4mg 4 mg, Slow IV Push, ONCE, 1 dose, On Ale 09/25/23 at 2315, FAWN [facility] SEMAGLUTIDE , WEIGHT LOSS, SC 2022-10 02:30: 30 Yes inject under the skin. [facility] iopamidol (ISOVUE 370-500 mL) injection 75 mL 2022-10 09:00: 00 08-24 09:00 :00 No [id number] 75mL 75 mL, Intravenou s, ONCE, 1 dose, On Fri08/24/23 at 0300, Routine [facility] ondansetron (ZOFRAN (PF)) injection 4 mg 2022-10 06:30: 00 08-24 08:15 :00 No 4mg 4 mg, Slow IV Push, ONCE, 1 dose, On Fri08/24/23 at 0130, FAWN [facility] morpHINE (4 mg/mL) injection 4 mg 2022-10 06:30: 00 08-24 08:14 :00 No 4mg 4 mg, Slow IV Push, ONCE, 1 dose, On Fri08/24/23 at 0130, STAT [facility] aspirin tablet 325 mg 2022-10 05:15: 00 08-24 05:18 :00 No 325mg 325 mg, Oral, ONCE, 1 dose, On Fri08/24/23 at 0015, STAT [facility] ketorolac (TORADOL) injection 30 mg 07-07 10:45: 00 07-07 09:53 :00 No 30mg 30 mg, Slow IV Push, ONCE, 1 dose, On Fri07/07/23 at 0545, Routine [facility] metoclopram glenroy HCl (REGLAN) injection 10 mg 07-07 09:45: 00 07-07 09:54 :00 No 10mg 10 mg, Slow IV Push, ONCE, 1 dose, On Fri07/07/23 at 0445, FAWN [facility] butalbital- acetaminoph en-caff 50-325-40 mg tablet 07-07 00:00: 00 Yes [id number] 1{tbl} Take 1 tablet by mouth every 6 (six) hours as needed (Headache) . [facility] metFORMIN (GLUCOPHAGE ) tablet 500 mg 05-26 13:00: 00 Yes 500mg 500 mg, Oral, BID MEALS, First dose on Fri05/26/23 at 0800, Until Discontinu ed, Routine [facility] ketorolac (TORADOL) injection 15 mg 05-26 03:00: 00 05-26 02:19 :00 No 15mg 15 mg, Slow IV Push, ONCE, 1 dose, [facility]25[facility]23 [facility] 2200[facility] ([facility] 2 % ointment 0.5 Inch 05-25 23:30: 00 05-26 01:27 :00 No .5[in_u s] 0.5 Inch, Transderma l (Apply To Skin), ONCE, 1 dose, On 05/25/23 at 1830, [facility] maalox:diph enhydrAMINE :lidocaine 2 % viscous 1:1:1 ([facility]) oral suspension 15 mL 05-25 23:30: 00 05-26 00:49 :00 No 15mL 15 mL, Oral (Swish & Swallow), ONCE, 1 dose, On 05/25/23 at 1830, Routine [facility] aspirin chewable tablet 324 mg 05-25 23:30: 00 05-25 22:24 :00 No 324mg 324 mg, Oral, ONCE, 1 dose, On 05/25/23 at 1830, Routine [facility] metFORMIN 500 mg tablet 05-25 00:00: 00 Yes [id number] 500mg Take 1 tablet by mouth 2 (two) times daily. [facility] naproxen (NAPROSYN) 500 mg tablet 05-25 00:00: 00 02-03 00:00 :00 No [id number] 500mg Take 1 tablet by mouth 2 (two) times daily with meals. [facility] cloNIDine (CATAPRES) tablet 0.2 mg 02-21 00:45: 00 02-21 01:50 :00 No .2mg 0.2 mg, Oral, ONCE, 1 dose, On [facility] 02/20/23 at 1945, [facility] ibuprofen (IBU) tablet 600 mg 02-20 23:30: 00 02-20 23:30 :00 No 600mg 600 mg, Oral, ONCE, 1 dose, On Ale 02/20/23 at 1830, FAWN [facility] ibuprofen 600 mg tablet 02-20 00:00: 00 02-03 00:00 :00 No [id number] 600mg Take 1 tablet by mouth every 6 (six) hours as needed for Pain (scale 4-6) for up to 30 doses. [facility] iopamidol (ISOVUE 370-500 mL) injection 100 mL 12-29 09:15: 00 12-29 09:15 :00 No [id number] 100mL 100 mL, Intravenou s, ONCE, 1 dose, On 12/29/22 at 0415, Routine [facility] ketorolac (TORADOL) injection 30 mg 12-29 09:00: 00 12-29 07:53 :00 No 30mg 30 mg, Slow IV Push, ONCE, 1 dose, On 12/29/22 at 0400, Routine [facility] ondansetron (ZOFRAN) 4 mg tablet 12-29 00:00: 00 Yes [id number] 4mg Take 1 tablet by mouth every 8 (eight) hours as needed for Nausea and Vomiting (N/V). [facility] ketorolac 10 mg tablet 12-29 00:00: 00 Yes [id number] 10mg Take 1 tablet by mouth every 6 (six) hours as needed for Pain (scale 7-10). [facility] maalox:diph enhydrAMINE :lidocaine 2 % viscous 1:1:1 (FIRST-MOUT [facility]) oral suspension 15 mL 11-21 08:45: 00 11-21 08:36 :00 No 15mL 15 mL, Oral, ONCE, 1 dose, On Ale 11/21/22 at 0245, Routine [facility] metoclopram glenroy HCl (REGLAN) tablet 10 mg 06-02 12:30: 00 Yes 10mg 10 mg, Oral, AC, First dose on 06/02/22 at 0730, Until Discontinu ed, Routine [facility] dexamethaso ne (DECADRON PHOSPHATE) injection 10 mg 06-02 06:00: 00 06-02 04:55 :00 No 10mg 10 mg, Oral, ONCE, 1 dose, On Fri06/02/22 at 0100, Routine [facility] butalbital- acetaminoph en-caff (ESGIC) 50-325-40 mg tablet 1 tablet 06-02 05:00: 00 06-02 04:56 :00 No 1{tbl} 1 tablet, Oral, ONCE, 1 dose, On Fri06/02/22 at 0000, [facility] diphenhydrA MINE (BENADRYL) tablet 50 mg 06-02 05:00: 00 06-02 04:54 :00 No 50mg 50 mg, Oral, ONCE, 1 dose, On Fri06/02/22 at 0000, [facility] levothyroxi ne (SYNTHROID) tablet 100 mcg 05-29 11:00: 00 Yes 100ug 100 mcg, Oral, QAM-0600, First dose on Fri05/29/22 at 0600, Until Discontinu ed, Routine [facility] levothyroxi ne 200 mcg tablet 05-28 13:18: 02 05-28 00:00 :00 No 300ug Take 300 mcg by mouth every morning. [facility] levothyroxi ne 300 mcg tablet 05-28 00:00: 00 08-27 05:59 :00 No [id number] 300ug Take 1 tablet by mouth every morning for 90 days. [facility] ketorolac (TORADOL) injection 15 mg 05-06 06:30: 00 05-06 05:30 :00 No 15mg 15 mg, Slow IV Push, ONCE, 1 dose, On Fri05/06/22 at 0130, [facility] iopamidol (ISOVUE 370-500 mL) injection 65 mL 05-06 06:00: 00 05-06 06:15 :00 No [id number] 65mL 65 mL, Intravenou s, ONCE, 1 dose, On Fri05/06/22 at 0115, Routine [facility] benzonatate 200 mg capsule 05-06 00:00: 00 Yes [id number] 200mg Take 1 capsule by mouth 3 (three) times daily as needed for Cough for up to 20 doses. [facility] ondansetron 4 mg disintegrat ing tablet 05-06 00:00: 00 Yes [id number] 4mg Take 1 tablet by mouth every 8 (eight) hours as needed for Nausea and Vomiting (N/V). [facility] ibuprofen 600 mg tablet 05-06 00:00: 00 02-20 00:00 :00 No [id number] 600mg Take 1 tablet by mouth every 6 (six) hours as needed for Pain (scale 4-6). [facility] molnupiravi r 200 mg capsule 05-06 00:00: 00 05-12 04:59 :00 No [id number] 800mg Take 4 capsules by mouth every 12 (twelve) hours for 5 days. [facility] magnesium sulfate in water 2 gram/50 mL (4 %) infusion 2 g 05-01 13:45: 00 05-01 14:06 :00 No 2g 2 g, IV Piggyback, Administer over 60 Minutes, ONCE, 1 dose, On Fri05/01/22 at 0845, Routine [facility] diphenhydrA MINE (BENADRYL) injection 50 mg 05-01 12:45: 00 05-01 12:43 :00 No 50mg 50 mg, Slow IV Push, ONCE, 1 dose, On Fri05/01/22 at 0745, STAT [facility] maalox:diph enhydrAMINE :lidocaine 2 % viscous 1:1:1 ([facility]) oral suspension 15 mL 02-08 07:15: 00 02-08 06:14 :00 No 15mL 15 mL, Oral, ONCE, 1 dose, On Fri02/08/22 at 0215, FAWN [facility] sucralfate 1 gram tablet 02-08 00:00: 00 Yes [id number] 1g Take 1 tablet by mouth before meals and at bedtime. [facility] ondansetron 4 mg disintegrat ing tablet 02-08 00:00: 00 Yes [id number] 4mg Take 1 tablet by mouth every 4 (four) hours as needed for Nausea and Vomiting (N/V). [facility] pantoprazol e 40 mg EC tablet 02-08 00:00: 00 Yes [id number] 40mg Take 1 tablet by mouth daily. [facility] maalox:diph enhydrAMINE :lidocaine 2 % viscous 1:1:1 ([facility]) oral suspension 15 mL 2020-10 02:15: 00 10-15 01:17 :00 No 15mL 15 mL, Oral, ONCE, 1 dose, On Fri10/14/21 at 2015, Routine [facility] iopamidol (ISOVUE 370-500 mL) injection 120 mL 2020-10 01:45: 00 10-15 00:37 :00 No [id number] 120mL 120 mL, Intravenou s, ONCE, 1 dose, On Fri10/14/21 at 1945, Routine [facility] famotidine (PEPCID (PF)) injection 20 mg 2020-10 00:30: 00 10-15 00:26 :00 No 20mg 20 mg, Slow IV Push, ONCE, 1 dose, On Fri10/14/21 at 1830, Routine [facility] enalapril 20 mg tablet 05-15 17:24: 35 Yes 25mg Take 25 mg by mouth daily. [facility] levothyroxi ne 200 mcg tablet 05-15 17:24: 35 Yes 300ug Take 300 mcg by mouth every morning. [facility] enalapril 20 mg tablet 05-15 12:24: 35 Yes 25mg Take 25 mg by mouth daily. [facility] levothyroxi ne 200 mcg tablet 05-15 12:24: 35 Yes 300ug Take 300 mcg by mouth every morning. [facility] FENTanyl (ACTIQ) lollipop 600 mcg 05-08 19:45: 00 05-08 18:59 :00 No [id number] 600ug 600 mcg, Buccal, ONCE, 1 dose, [facility] 05/08/21 at 1445, Routine [facility] sulfamethox azole-trime thoprim (BACTRIM DS) 800-160 mg per tablet 05-08 00:00: 00 05-16 04:59 :00 No [id number] 1{tbl} Take 1 tablet by mouth 2 (two) times daily for 7 days. [facility] HYDROcodone -acetaminop hen (NORCO) 10-325 mg tablet 1 tablet 05-06 09:45: 00 05-06 08:44 :00 No 1{tbl} 1 tablet, Oral, ONCE, 1 dose, Mobile 05/06/21 at 0445, Routine [facility] sulfamethox azole-trime thoprim 800-160 mg per tablet 05-06 00:00: 00 Yes [id number] 1{tbl} Take 1 tablet by mouth every 12 (twelve) hours. [facility] HYDROcodone -acetaminop hen 5-325 mg tablet 05-06 00:00: 00 05-14 04:59 :00 No [id number] 1{tbl} Take 1 tablet by mouth every 4 (four) hours as needed for Pain (scale 7-10) for up to 7 days. Indication s: acute pain [facility] ketorolac (TORADOL) injection 30 mg 03-15 06:30: 00 03-15 05:44 :00 No 30mg 30 mg, Slow IV Push, ONCE, 1 dose, [facility] 03/15/21 at 0130, Routine
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 : CHAPITO CONTRERAS [facility] enalapril 20 mg tablet 03-15 06:19: 47 Yes 25mg Take 25 mg by mouth daily. [facility] levothyroxi ne 200 mcg tablet 03-15 06:19: 47 Yes 300ug Take 300 mcg by mouth every morning. [facility] iopamidol (ISOVUE 370-500 mL) injection 120 mL 03-15 06:00: 00 03-15 06:00 :00 No [id number] 120mL 120 mL, Intravenou s, ONCE, 1 dose, [facility] 03/15/21 at 0100, Routine [facility] KCL (KLOR-CON M20) tablet 40 mEq 03-15 05:45: 00 03-15 05:01 :00 No 40meq 40 mEq, Oral, ONCE, 1 dose, [facility] 03/15/21 at 0045, Routine [facility] ondansetron (ZOFRAN (PF)) injection 4 mg 03-15 05:30: 00 03-15 04:32 :00 No 4mg 4 mg, Slow IV Push, ONCE, 1 dose, Ale 03/15/21 at 0030, FAWN [facility] FENTanyl PF (SUBLIMAZE (PF)) injection 75 mcg 03-15 05:30: 00 03-15 04:32 :00 No 75ug 75 mcg, Slow IV Push, ONCE, 1 dose, Ale 03/15/21 at 0030, Routine [facility] traMADoL (ULTRAM) 50 mg tablet 03-15 00:00: 00 Yes [id number] 50mg Take 1 tablet by mouth every 6 (six) hours as needed for Pain (scale 4-6) or Pain (scale 7-10). Indication s: acute pain [facility] methocarbam oL 500 mg tablet 03-15 00:00: 00 Yes [id number] 500mg Take 1 tablet by mouth every 6 (six) hours as needed (MUSCLE SPASM). [facility] ibuprofen 800 mg tablet 03-15 00:00: 00 02-20 00:00 :00 No [id number] 800mg Take 1 tablet by mouth every 8 (eight) hours as needed for Pain (scale 4-6). [facility] pantoprazol e (PROTONIX) 80 mg in NaCl 0.9% (NS) 20 mL syringe 2019-10 00:15: 00 09-08 23:17 :00 No 80mg 80 mg, IV Push, ONCE, 1 dose, Fri09/08/20 at 1815, 20 mL [facility] maalox:diph enhydrAMINE :lidocaine2 %viscous 1:1:1: suspension (COMPOUNDED ) 2019-10 00:15: 00 09-08 23:16 :00 No 15mL 15 mL, Oral, ONCE, 1 dose, Fri09/08/20 at 1815, Routine [facility] sucralfate 1 gram tablet 2019-10 00:00: 00 Yes [id number] 1g Take 1 tablet by mouth before meals and at bedtime. [facility] dicyclomine (BENTYL) 10 mg capsule 2019-10 00:00: 00 Yes [id number] 10mg Take 1 capsule by mouth every 8 (eight) hours as needed for Abdominal pain. [facility] ondansetron 4 mg disintegrat ing tablet 2019-10 00:00: 00 Yes [id number] 4mg Take 1 tablet by mouth every 8 (eight) hours as needed for Nausea and Vomiting (N/V). [facility] omeprazole 20 mg capsule 2019-10 00:00: 00 10-09 05:59 :00 No [id number] 20mg Take 1 capsule by mouth daily for 30 days. [facility] ketorolac (TORADOL) injection 30 mg 2019-10 20:15: 00 09-06 19:14 :00 No 30mg 30 mg, Slow IV Push, ONCE, 1 dose, Fri09/06/20 at 1415, FAWN
Fa culty member approving Restricted medication : Nidia SOLANO [facility] FENTanyl PF (SUBLIMAZE (PF)) injection 50 mcg 2019-10 18:45: 00 09-06 17:38 :00 No 50ug 50 mcg, Slow IV Push, ONCE, 1 dose, Fri09/06/20 at 1245, STAT [facility] iohexol (OMNIPAQUE 350 BULK-500 mL) injection 150 mL 2019-10 18:15: 00 09-06 17:00 :00 No 150mL 150 mL, Intravenou s, ONCE, 1 dose, Fri09/06/20 at 1215, Routine [facility] ondansetron (ZOFRAN (PF)) injection 4 mg 2019-10 17:30: 00 09-06 16:33 :00 No 4mg 4 mg, Slow IV Push, ONCE, 1 dose, Fri09/06/20 at 1130, FAWN [facility] morpHINE injection 4 mg 2019-10 17:30: 00 09-06 16:33 :00 No 4mg 4 mg, Slow IV Push, ONCE, 1 dose, Fri09/06/20 at 1130, STAT [facility] ibuprofen 600 mg tablet 2019-10 00:00: 00 03-14 00:00 :00 No [id number] 600mg Take 1 tablet by mouth every 6 (six) hours as needed for Pain (scale 4-6). [facility] Polyethylen e Glycol 3350 (MIRALAX) powder 17 g 2019-10 13:00: 00 08-30 11:55 :00 No 17g 17 g, Oral, ONCE, 1 dose, Fri08/30/20 at 0700, Routine [facility] aspirin 81 mg chewable tablet 2019-10 00:00: 00 09-30 05:59 :00 No [id number] 81mg Take 1 tablet by mouth daily for 30 days. [facility] levothyroxi ne 125 mcg tablet 2019-10 23:22: 41 08-29 00:00 :00 No 300ug Take 300 mcg by mouth every morning. [facility] lisinopriL 30 mg tablet 2019-10 23:22: 41 08-29 00:00 :00 No 25mg Take 25 mg by mouth daily. [facility] ondansetron (ZOFRAN (PF)) injection 4 mg 2019-10 23:15: 07 08-31 23:14 :07 No 4mg 4 mg, Slow IV Push, Q6HPRN, Starting Fri08/29/20 at 1715, Until Ale 08/31/20 at 1714, Routine, Nausea and Vomiting (N/V) [facility] morpHINE injection 2 mg 2019-10 22:49: 42 08-30 22:48 :42 No 2mg 2 mg, Slow IV Push, Q4HPRN, Starting Fri08/29/20 at 1649, Until Fri08/30/20 at 1648, Routine, Pain (scale 7-10) [facility] ondansetron (ZOFRAN (PF)) injection 4 mg 2019-10 18:03: 34 08-29 22:50 :21 No 4mg 4 mg, Slow IV Push, Q6HPRN, Starting Fri08/29/20 at 1203, Until Fri08/29/20 at 1650, Routine, Nausea and Vomiting (N/V) [facility] ibuprofen (IBU) tablet 600 mg 2019-10 18:00: 00 Yes 600mg 600 mg, Oral, Q6H, First dose on Fri08/29/20 at 1200, Until Discontinu ed, Routine [facility] acetaminoph en (TYLENOL) tablet 500 mg 2019-10 18:00: 00 Yes 500mg 500 mg, Oral, Q6H, First dose on Fri08/29/20 at 1200, Until Discontinu ed, Routine [facility] lactated ringers IV infusion 1,000 mL 2019-10 17:00: 00 Yes 1000mL at 75 mL/hr, 1,000 mL, IV Infusion, CONTINUOUS , Starting Fri08/29/20 at 1100, Until Discontinu ed, Routine, PACU [facility] FENTanyl PF (SUBLIMAZE (PF)) injection 25 mcg 2019-10 16:57: 53 08-29 17:58 :11 No 25ug 25 mcg, Slow IV Push, Q5MIN PRN, 4 doses, Starting Fri08/29/20 at 1057, Until Fri08/29/20 at 1158, Routine, Pain (scale 4-6), PACU [facility] ondansetron (ZOFRAN (PF)) injection 4 mg 2019-10 16:57: 53 08-29 17:13 :00 No 4mg 4 mg, Slow IV Push, PRN, 1 dose, Starting Fri08/29/20 at 1057, Until Fri08/29/20 at 1113, Routine, Nausea and Vomiting (N/V), PACU [facility] traMADoL (ULTRAM) tablet 100 mg 2019-10 16:11: 10 08-29 22:51 :09 No 100mg 100 mg, Oral, Q6HPRN, Starting Fri08/29/20 at 1011, Until Fri08/29/20 at 1651, Routine, Pain (scale 7-10) [facility] traMADoL (ULTRAM) tablet 50 mg 2019-10 16:10: 52 Yes 50mg 50 mg, Oral, Q6HPRN, Starting Fri08/29/20 at 1010, Until Discontinu ed, Routine, Pain (scale 4-6) [facility] acetaminoph en ADULT (OFIRMEV) injection 1,000 mg 2019-10 00:15: 00 08-29 16:11 :33 No 1000mg 1,000 mg, IV Infusion, Administer over 15 Minutes, Q6H ABX, 4 doses, First dose on Fri08/28/20 at 1815, Last dose on Fri08/29/20 at 1215, Routine
Indicatio n: Non-periop erative Patient
Approved by: Per Policy (NPO Status) [facility] metroNIDAZO LE in NaCl (iso-os) (FLAGYL I.V.) RTU IV infusion 500 mg 2019-10 00:15: 00 08-29 16:11 :42 No 500mg 500 mg, IV Infusion, Q8H ABX, First dose on Fri08/28/20 at 1815, Until Discontinu ed, 100 mL
Reas on for Anti-Infec tive: Empiric Therapy for Suspected Infection< br>Empiric Therapy Site: Abdominal< br>Duratio n of therapy: 7 days [facility] levoFLOXaci n in D5W (LEVAQUIN) 750 mg/150 mL Piggyback 750 mg 2019-10 00:15: 00 08-29 16:11 :42 No 750mg 750 mg, IV Piggyback, Administer over 90 Minutes, Q24H ABX, First dose on Fri08/28/20 at 1815, Until Discontinu ed, FAWN
Re ason for Anti-Infec tive: Empiric Therapy for Suspected Infection< br>Empiric Therapy Site: Abdominal< br>Duratio n of therapy: 72 hours [facility] levothyroxi ne 125 mcg tablet 2019-10 00:00: 00 09-29 05:59 :00 No [id number] 312.5ug Take 2.5 tablets by mouth every morning for 30 days. [facility] lisinopriL 30 mg tablet 2019-10 00:00: 00 09-29 05:59 :00 No [id number] 30mg Take 1 tablet by mouth daily for 30 days. [facility] pantoprazol e (PROTONIX) 40 mg EC tablet 2019-10 00:00: 00 09-29 05:59 :00 No [id number] 40mg Take 1 tablet by mouth daily for 30 days. [facility] ibuprofen 800 mg tablet 2019-10 00:00: 00 09-04 05:59 :00 No [id number] 800mg Take 1 tablet by mouth every 8 (eight) hours as needed for Pain (scale 4-6) for up to 5 days. [facility] sulfur hexafluorid e microsphr (LUMASON) injection 5 mL 2019-10 21:30: 00 08-28 16:58 :00 No 5mL 5 mL, Intravenou s, ONCE, 1 dose, Fri08/28/20 at 1530, Routine
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 : DARIAN DAVENPORT [facility] morpHINE injection 4 mg 2019-10 20:09: 08 08-29 16:11 :42 No 4mg 4 mg, Slow IV Push, Q4HPRN, Starting Fri08/28/20 at 1409, Until Fri08/29/20 at 1011, Routine, Pain (scale 7-10) [facility] morpHINE injection 2 mg 2019-10 18:15: 00 08-28 17:20 :00 No 2mg 2 mg, Slow IV Push, ONCE, 1 dose, Fri08/28/20 at 1215, Routine [facility] levothyroxi ne (SYNTHROID) tablet 200 mcg 2019-10 12:00: 00 Yes 200ug 200 mcg, Oral, QAM-0600, First dose (after last modificati on) on Fri08/28/20 at 0600, Until Discontinu ed, Routine [facility] enoxaparin (LOVENOX) injection 40 mg 2019-10 23:00: 00 Yes 40mg 40 mg, Subcutaneo us, DAILY, First dose on Fri08/27/20 at 1700, Until Discontinu ed, Routine [facility] ketorolac (TORADOL) injection 30 mg 2019-10 15:45: 00 08-27 14:53 :00 No 30mg 30 mg, Slow IV Push, ONCE, 1 dose, Mobile 08/27/20 at 0945, Routine
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 : DOMINGO ANNE [facility] lisinopriL (PRINIVIL,Z ESTRIL) tablet 20 mg 2019-10 15:00: 00 Yes 20mg 20 mg, Oral, DAILY, First dose on 08/27/20 at 0900, Until Discontinu ed, Routine [facility] pantoprazol e (PROTONIX) EC tablet 40 mg 2019-10 15:00: 00 Yes 40mg 40 mg, Oral, DAILY, First dose on 08/27/20 at 0900, Until Discontinu ed, Routine [facility] aspirin chewable tablet 81 mg 2019-10 15:00: 00 Yes 81mg 81 mg, Oral, DAILY, First dose on 08/27/20 at 0900, Until Discontinu ed, Routine [facility] levothyroxi ne (SYNTHROID) tablet 300 mcg 2019-10 12:00: 00 08-27 14:38 :59 No 300ug 300 mcg, Oral, QAM-0600, First dose on 08/27/20 at 0600, Until Discontinu ed, Routine [facility] nicotine (NICODERM) 21 mg/24 hr patch 1 Patch 2019-10 08:30: 00 Yes 1{patch } 1 Patch, Topical, Administer over 24 Hours, Q24H, First dose on 08/27/20 at 0230, Until Discontinu ed, Routine [facility] acetaminoph en (TYLENOL) tablet 975 mg 2019-10 08:15: 00 08-27 07:56 :00 No 975mg 975 mg, Oral, ONCE, 1 dose, 08/27/20 at 0215, FAWN [facility] iohexol (OMNIPAQUE 350 BULK-100 mL) injection 120 mL 2019-10 07:45: 00 08-27 07:34 :00 No 120mL 120 mL, Intravenou s, ONCE, 1 dose, 08/27/20 at 0145, Routine [facility] traMADoL (ULTRAM) tablet 50 mg 2019-10 07:16: 43 08-29 07:15 :43 No 50mg 50 mg, Oral, Q8HPRN, Starting Fri08/27/20 at 0116, Until Fri08/29/20 at 0115, Routine, Pain (scale 4-6) [facility] acetaminoph en (TYLENOL) tablet 650 mg 2019-10 07:16: 41 08-28 23:11 :03 No 650mg 650 mg, Oral, Q6HPRN, Starting Fri08/27/20 at 0116, Until Fri08/28/20 at 1711, Routine, Pain (scale 1-3) [facility] morpHINE injection 2 mg 2019-10 07:14: 54 08-28 20:09 :18 No 2mg 2 mg, Slow IV Push, Q4HPRN, Starting 08/27/20 at 0114, Until Fri08/28/20 at 1409, Routine, Pain (scale 7-10) [facility] nitroglycer in (NITROSTAT) sublingual tablet 0.4 mg 2019-10 07:03: 30 Yes .4mg 0.4 mg, Sublingual , Q5MIN PRN, Starting Mobile 08/27/20 at 0103, Until Discontinu ed, Routine, Chest pain [facility] alum-mag hydroxide-s imeth (MAALOX PLUS / MAG-AL PLUS) 200-200-20 mg/5 mL suspension 30 mL 2019-10 07:02: 48 Yes 30mL 30 mL, Oral, Q6HPRN, Starting Mobile 08/27/20 at 0102, Until Discontinu ed, Routine, Indigestio n [facility] aspirin tablet 325 mg 2019-10 07:00: 00 08-27 06:16 :00 No 325mg 325 mg, Oral, ONCE, 1 dose, Mobile 08/27/20 at 0100, STAT [facility] nitroglycer in (NITROSTAT) sublingual tablet 0.4 mg 2019-10 07:00: 00 08-27 06:16 :00 No .4mg 0.4 mg, Sublingual , ONCE, 1 dose, Mobile 08/27/20 at 0100, FAWN [facility] aspirin chewable tablet 324 mg 07-10 14:00: 00 Yes 324mg 324 mg, Oral, DAILY, First dose on Fri07/10/20 at 0900, Until Discontinu ed, Routine [facility] iohexol (OMNIPAQUE 350 BULK-100 mL) injection 120 mL 07-10 05:15: 00 07-10 05:08 :00 No 120mL 120 mL, Intravenou s, ONCE, 1 dose, [facility] 07/10/20 at 0015, Routine [facility] codeine-gua ifenesin (ROBITUSSIN AC) 10-100 mg/5 mL solution 10 mL 07-10 04:30: 00 07-10 03:23 :00 No 10mL 10 mL, Oral, ONCE, 1 dose, Mobile 07/09/20 at 2330, FAWN [facility] LORazepam (ATIVAN) injection 1 mg 07-10 03:45: 00 07-10 03:14 :00 No 1mg 1 mg, Slow IV Push, ONCE, 1 dose, 07/09/20 at 2245, STAT [facility] morpHINE injection 4 mg 07-10 03:30: 00 07-10 03:16 :00 No 4mg 4 mg, Slow IV Push, ONCE, 1 dose, 07/09/20 at 2230, STAT [facility] pantoprazol e (PROTONIX) 40 mg in NaCl 0.9% (NS) 100 mL MINI-BAG 07-10 02:30: 00 07-10 01:48 :00 No 40mg 40 mg, IV Piggyback, ONCE, 1 dose, 07/09/20 at 2130, 100 mL [facility] ondansetron (ZOFRAN (PF)) injection 4 mg 07-10 02:00: 00 07-10 01:03 :00 No 4mg 4 mg, Slow IV Push, ONCE, 1 dose, 07/09/20 at 2100, FAWN [facility] morpHINE injection 4 mg 07-10 02:00: 00 07-10 01:03 :00 No 4mg 4 mg, Slow IV Push, ONCE, 1 dose, 07/09/20 at 2100, STAT [facility] nitroglycer in (NITROSTAT) sublingual tablet 0.4 mg 07-10 02:00: 00 07-10 01:02 :00 No .4mg 0.4 mg, Sublingual , ONCE, 1 dose, [facility]09[facility] 2100[facility] mg EC tablet 07-10 00:00: 00 08-29 00:00 :00 No [id number] 40mg Take 1 tablet by mouth daily. [facility] dicyclomine 20 mg tablet 07-10 00:00: 08-29 00:00 :00 No [id number] 20mg Take 1 tablet by mouth every 6 (six) hours as needed for Abdominal pain. [facility] benzonatate 200 mg capsule 921 00:00: 00 08-29 00:00 :00 No [id number] 200mg Take 1 capsule by mouth 3 (three) times daily as needed for Cough. [facility] ibuprofen 800 mg tablet 2018-10 029 00:00: 00 08-29 00:00 :00 No [id number] 800mg Take 1 tablet by mouth every 8 (eight) hours as needed for Pain (scale 4-6). [facility] cyclobenzap rine 5 mg tablet 03-30 00:00: 00 08-29 00:00 :00 No [id number] 5mg Take 1 tablet by mouth 3 (three) times daily as needed for Muscle Spasms. [facility] LORazepam (ATIVAN) 0.5 mg tablet 06-14 00:00: 00 08-29 00:00 :00 No .5mg Take 1 tablet by mouth 2 (two) times daily as needed for Anxiety. [facility] levothyroxi ne 125 mcg tablet 05-11 10:32: 30 Yes 125ug Take 125 mcg by mouth every morning. [facility] Vital Signs Vital Name Observation Time Observation Value Comments S heather Systolic blood pressure 2024-11-14 02:39:00 156 mm[Hg] [facility] Diastolic blood pressure 2024-11-14 02:39:00 88 mm[Hg] [facility] Heart rate 2024-11-14 02:39:00 88 /min [facility] Body temperature 2024-11-14 02:39:00 37.11 Nano [facility] Respiratory rate 2024-11-14 02:39:00 16 /min [facility] Body height 2024-11-14 02:39:00 172.7 cm [facility] Body weight 2024-11-14 02:39:00 111.131 kg [facility] BMI 2024-11-14 02:39:00 37.25 kg/m2 [facility] Oxygen saturation in Arterial blood by Pulse oximetry 2024-11-14 02:39:00 98 /min [facility] Systolic blood pressure 2024-02-04 18:48:00 142 mm[Hg] [facility] Diastolic blood pressure 2024-02-04 18:48:00 97 mm[Hg] [facility] Heart rate 2024-02-04 18:48:00 84 /min Unive [facility] Respiratory rate 2024-02-04 18:48:00 16 /min [facility] Oxygen saturation in Arterial blood by Pulse oximetry 2024-02-04 18:48:00 97 /min [facility] Body temperature 2024-02-04 15:46:00 36.67 Nano [facility] Body height 2024-02-04 15:46:00 172.7 cm [facility] Body weight 2024-02-04 15:46:00 111.131 kg [facility] BMI 2024-02-04 15:46:00 37.25 kg/m2 [facility] Heart rate 2023-12-28 09:23:00 84 /min Unive [facility] Respiratory rate 2023-12-28 09:23:00 16 /min [facility] Oxygen saturation in Arterial blood by Pulse oximetry 2023-12-28 09:23:00 96 /min [facility] Systolic blood pressure 2023-12-28 09:00:00 131 mm[Hg] [facility] Diastolic blood pressure 2023-12-28 09:00:00 81 mm[Hg] [facility] Body temperature 2023-12-28 08:13:00 37 Nano [facility] Body height 2023-12-28 08:13:00 172.7 cm [facility] Body weight 2023-12-28 08:13:00 110.632 kg [facility] BMI 2023-12-28 08:13:00 37.08 kg/m2 [facility] Systolic blood pressure 2023-11-06 08:00:00 117 mm[Hg] [facility] Diastolic blood pressure 2023-11-06 08:00:00 75 mm[Hg] [facility] Heart rate 2023-11-06 08:00:00 80 /min Unive [facility] Body temperature 2023-11-06 08:00:00 37 Nano [facility] Respiratory rate 2023-11-06 08:00:00 18 /min [facility] Oxygen saturation in Arterial blood by Pulse oximetry 2023-11-06 08:00:00 97 /min [facility] Body height 2023-11-06 05:50:00 172.7 cm [facility] Body weight 2023-11-06 05:50:00 113.309 kg [facility] BMI 2023-11-06 05:50:00 37.98 kg/m2 [facility] Systolic blood pressure 2023-11-01 10:00:00 142 mm[Hg] [facility] Diastolic blood pressure 2023-11-01 10:00:00 81 mm[Hg] [facility] Heart rate 2023-11-01 10:00:00 79 /min Unive [facility] Body temperature 2023-11-01 10:00:00 37.17 Nano [facility] Respiratory rate 2023-11-01 10:00:00 16 /min [facility] Oxygen saturation in Arterial blood by Pulse oximetry 2023-11-01 10:00:00 94 /min [facility] Body height 2023-11-01 05:37:00 172.7 cm [facility] Body weight 2023-11-01 05:37:00 111.131 kg [facility] BMI 2023-11-01 05:37:00 37.25 kg/m2 [facility] Systolic blood pressure 2023-10-23 08:00:00 140 mm[Hg] [facility] Diastolic blood pressure 2023-10-23 08:00:00 88 mm[Hg] [facility] Heart rate 2023-10-23 08:00:00 89 /min Unive [facility] Oxygen saturation in Arterial blood by Pulse oximetry 2023-10-23 08:00:00 94 /min [facility] Respiratory rate 2023-10-23 05:53:00 16 /min [facility] Body temperature 2023-10-23 05:45:00 36.72 Nano [facility] Body height 2023-10-23 05:45:00 172.7 cm [facility] Body weight 2023-10-23 05:45:00 113.399 kg [facility] BMI 2023-10-23 05:45:00 38.01 kg/m2 [facility] Systolic blood pressure 2023-09-26 08:00:00 159 mm[Hg] [facility] Diastolic blood pressure 2023-09-26 08:00:00 80 mm[Hg] [facility] Heart rate 2023-09-26 08:00:00 75 /min [facility] Respiratory rate 2023-09-26 08:00:00 20 /min [facility] Oxygen saturation in Arterial blood by Pulse oximetry 2023-09-26 08:00:00 94 /min [facility] Body temperature 2023-09-26 05:02:00 36.72 Nano [facility] Systolic blood pressure 2023-08-24 08:14:00 140 mm[Hg] [facility] Diastolic blood pressure 2023-08-24 08:14:00 73 mm[Hg] [facility] Heart rate 2023-08-24 08:14:00 75 /min [facility] Body temperature 2023-08-24 08:14:00 36.67 Nano [facility] Respiratory rate 2023-08-24 08:14:00 18 /min [facility] Oxygen saturation in Arterial blood by Pulse oximetry 2023-08-24 08:14:00 96 /min [facility] Body height 2023-08-24 03:41:00 172.7 cm [facility] Body weight 2023-08-24 03:41:00 113.399 kg [facility] BMI 2023-08-24 03:41:00 38.01 kg/m2 [facility] Systolic blood pressure 2023-07-07 10:53:00 140 mm[Hg] [facility] Diastolic blood pressure 2023-07-07 10:53:00 83 mm[Hg] [facility] Heart rate 2023-07-07 10:53:00 75 /min Unive [facility] Respiratory rate 2023-07-07 10:53:00 16 /min [facility] Oxygen saturation in Arterial blood by Pulse oximetry 2023-07-07 10:53:00 97 /min [facility] Body temperature 2023-07-07 08:57:00 36.44 Nano [facility] Body height 2023-07-07 08:57:00 172.7 cm [facility] Body weight 2023-07-07 08:57:00 113.399 kg [facility] BMI 2023-07-07 08:57:00 38.01 kg/m2 [facility] Systolic blood pressure 2023-05-26 03:30:00 140 mm[Hg] [facility] Diastolic blood pressure 2023-05-26 03:30:00 78 mm[Hg] [facility] Heart rate 2023-05-26 03:30:00 80 /min Unive [facility] Respiratory rate 2023-05-26 03:30:00 23 /min [facility] Oxygen saturation in Arterial blood by Pulse oximetry 2023-05-26 03:30:00 94 /min [facility] Body temperature 2023-05-26 03:00:00 36.78 Nano [facility] Body weight 2023-05-25 22:19:00 121.564 kg [facility] BMI 2023-05-25 22:19:00 40.75 kg/m2 [facility] Systolic blood pressure 2023-02-21 01:51:00 123 mm[Hg] [facility] Diastolic blood pressure 2023-02-21 01:51:00 74 mm[Hg] [facility] Heart rate 2023-02-20 23:03:00 95 /min Unive [facility] Body temperature 2023-02-20 23:03:00 38.28 Nano [facility] Respiratory rate 2023-02-20 23:03:00 18 /min [facility] Body height 2023-02-20 23:03:00 172.7 cm [facility] Body weight 2023-02-20 23:03:00 121.564 kg [facility] BMI 2023-02-20 23:03:00 40.75 kg/m2 [facility] Oxygen saturation in Arterial blood by Pulse oximetry 2023-02-20 23:03:00 97 /min [facility] Systolic blood pressure 2022-12-29 10:00:00 142 mm[Hg] [facility] Diastolic blood pressure 2022-12-29 10:00:00 78 mm[Hg] [facility] Heart rate 2022-12-29 10:00:00 71 /min Unive [facility] Oxygen saturation in Arterial blood by Pulse oximetry 2022-12-29 09:57:00 96 /min [facility] Body temperature 2022-12-29 06:35:00 36.89 Nano [facility] Respiratory rate 2022-12-29 06:35:00 20 /min [facility] Body height 2022-12-29 06:35:00 172.7 cm [facility] Body weight 2022-12-29 06:35:00 121.745 kg [facility] BMI 2022-12-29 06:35:00 40.81 kg/m2 [facility] Systolic blood pressure 2022-11-21 08:14:00 162 mm[Hg] [facility] Diastolic blood pressure 2022-11-21 08:14:00 101 mm[Hg] [facility] Heart rate 2022-11-21 08:09:00 92 /min Unive [facility] Body temperature 2022-11-21 08:09:00 37.11 Nano [facility] Respiratory rate 2022-11-21 08:09:00 16 /min [facility] Body height 2022-11-21 08:09:00 172.7 cm [facility] Body weight 2022-11-21 08:09:00 115.667 kg [facility] BMI 2022-11-21 08:09:00 38.77 kg/m2 [facility] Oxygen saturation in Arterial blood by Pulse oximetry 2022-11-21 08:09:00 97 /min [facility] Systolic blood pressure 2022-10-29 07:34:00 167 mm[Hg] [facility] Diastolic blood pressure 2022-10-29 07:34:00 97 mm[Hg] [facility] Heart rate 2022-10-29 07:34:00 93 /min Unive [facility] Body temperature 2022-10-29 07:34:00 37.39 Nano [facility] Respiratory rate 2022-10-29 07:34:00 20 /min [facility] Body height 2022-10-29 07:34:00 172.7 cm [facility] Body weight 2022-10-29 07:34:00 113.399 kg [facility] BMI 2022-10-29 07:34:00 38.01 kg/m2 [facility] Oxygen saturation in Arterial blood by Pulse oximetry 2022-10-29 07:34:00 97 /min [facility] Systolic blood pressure 2022-06-02 05:00:00 165 mm[Hg] [facility] Diastolic blood pressure 2022-06-02 05:00:00 119 mm[Hg] [facility] Heart rate 2022-06-02 05:00:00 74 /min [facility] Respiratory rate 2022-06-02 05:00:00 23 /min [facility] Oxygen saturation in Arterial blood by Pulse oximetry 2022-06-02 05:00:00 95 /min [facility] Body temperature 2022-06-02 04:41:00 36.67 Nano [facility] Systolic blood pressure 2022-05-28 18:36:21 147 mm[Hg] [facility] Diastolic blood pressure 2022-05-28 18:36:21 97 mm[Hg] [facility] Heart rate 2022-05-28 18:36:21 62 /min Unive [facility] Respiratory rate 2022-05-28 18:36:21 18 /min [facility] Oxygen saturation in Arterial blood by Pulse oximetry 2022-05-28 18:36:21 96 /min [facility] Body temperature 2022-05-28 15:06:00 37.22 Nano [facility] Body height 2022-05-28 15:06:00 172.7 cm [facility] Body weight 2022-05-28 15:06:00 124.739 kg [facility] BMI 2022-05-28 15:06:00 41.81 kg/m2 [facility] Systolic blood pressure 2022-05-06 06:42:00 137 mm[Hg] [facility] Diastolic blood pressure 2022-05-06 06:42:00 90 mm[Hg] [facility] Heart rate 2022-05-06 06:42:00 81 /min Unive [facility] Respiratory rate 2022-05-06 06:42:00 16 /min [facility] Oxygen saturation in Arterial blood by Pulse oximetry 2022-05-06 06:42:00 94 /min [facility] Body temperature 2022-05-06 03:30:00 36.78 Nano [facility] Body height 2022-05-06 03:30:00 172.7 cm [facility] Body weight 2022-05-06 03:30:00 117.935 kg [facility] BMI 2022-05-06 03:30:00 39.53 kg/m2 [facility] Systolic blood pressure 2022-05-01 13:30:00 147 mm[Hg] [facility] Diastolic blood pressure 2022-05-01 13:30:00 91 mm[Hg] [facility] Heart rate 2022-05-01 13:30:00 73 /min Unive [facility] Respiratory rate 2022-05-01 13:30:00 17 /min [facility] Oxygen saturation in Arterial blood by Pulse oximetry 2022-05-01 13:30:00 95 /min [facility] Body temperature 2022-05-01 12:28:00 36.78 Nano [facility] Body weight 2022-05-01 12:28:00 121.564 kg [facility] BMI 2022-05-01 12:28:00 40.75 kg/m2 [facility] Systolic blood pressure 2022-02-08 07:00:00 133 mm[Hg] [facility] Diastolic blood pressure 2022-02-08 07:00:00 94 mm[Hg] [facility] Heart rate 2022-02-08 07:00:00 77 /min [facility] Respiratory rate 2022-02-08 07:00:00 21 /min [facility] Oxygen saturation in Arterial blood by Pulse oximetry 2022-02-08 07:00:00 95 /min [facility] Body temperature 2022-02-08 06:04:00 36.5 Nano [facility] Body height 2022-02-08 06:04:00 172.7 cm [facility] Body weight 2022-02-08 06:04:00 113.399 kg [facility] BMI 2022-02-08 06:04:00 38.01 kg/m2 [facility] Systolic blood pressure 2021-10-14 22:36:00 152 mm[Hg] [facility] Diastolic blood pressure 2021-10-14 22:36:00 87 mm[Hg] [facility] Heart rate 2021-10-14 22:36:00 95 /min [facility] Body temperature 2021-10-14 22:36:00 36.94 Nano [facility] Respiratory rate 2021-10-14 22:36:00 18 /min [facility] Body weight 2021-10-14 22:36:00 122.29 kg [facility] BMI 2021-10-14 22:36:00 40.99 kg/m2 [facility] Oxygen saturation in Arterial blood by Pulse oximetry 2021-10-14 22:36:00 97 /min [facility] Systolic blood pressure 2021-05-15 17:15:00 148 mm[Hg] [facility] Diastolic blood pressure 2021-05-15 17:15:00 84 mm[Hg] [facility] Heart rate 2021-05-15 17:15:00 99 /min [facility] Body temperature 2021-05-15 17:15:00 36.5 Nano [facility] Respiratory rate 2021-05-15 17:15:00 20 /min [facility] Body weight 2021-05-15 17:15:00 117.073 kg [facility] BMI 2021-05-15 17:15:00 39.24 kg/m2 [facility] Oxygen saturation in Arterial blood by Pulse oximetry 2021-05-15 17:15:00 97 /min [facility] Systolic blood pressure 2021-05-08 18:10:00 156 mm[Hg] [facility] Diastolic blood pressure 2021-05-08 18:10:00 95 mm[Hg] [facility] Heart rate 2021-05-08 18:10:00 99 /min [facility] Body temperature 2021-05-08 18:10:00 36.06 Nano [facility] Respiratory rate 2021-05-08 18:10:00 18 /min [facility] Body weight 2021-05-08 18:10:00 116.756 kg [facility] BMI 2021-05-08 18:10:00 39.14 kg/m2 [facility] Oxygen saturation in Arterial blood by Pulse oximetry 2021-05-08 18:10:00 96 /min [facility] Systolic blood pressure 2021-05-06 09:26:00 145 mm[Hg] [facility] Diastolic blood pressure 2021-05-06 09:26:00 93 mm[Hg] [facility] Heart rate 2021-05-06 09:26:00 79 /min [facility] Respiratory rate 2021-05-06 09:26:00 20 /min [facility] Oxygen saturation in Arterial blood by Pulse oximetry 2021-05-06 09:26:00 97 /min [facility] Body temperature 2021-05-06 07:56:00 37.11 [facility] Body height 2021-05-06 07:56:00 172.7 cm [facility] Body weight 2021-05-06 07:56:00 118.434 kg [facility] BMI 2021-05-06 07:56:00 39.70 kg/m2 [facility] Systolic blood pressure 2021-03-15 06:19:00 127 mm[Hg] [facility] Diastolic blood pressure 2021-03-15 06:19:00 79 mm[Hg] [facility] Heart rate 2021-03-15 06:19:00 78 /min [facility] Respiratory rate 2021-03-15 06:19:00 23 /min [facility] Oxygen saturation in Arterial blood by Pulse oximetry 2021-03-15 06:19:00 96 /min [facility] Body temperature 2021-03-15 03:05:45 37 [facility] Body weight 2021-03-15 02:46:00 114.76 kg [facility] BMI 2021-03-15 02:46:00 38.47 kg/m2 [facility] Systolic blood pressure 2021-03-15 06:19:00 127 mm[Hg] [facility] Diastolic blood pressure 2021-03-15 06:19:00 79 mm[Hg] [facility] Heart rate 2021-03-15 06:19:00 78 /min [facility] Respiratory rate 2021-03-15 06:19:00 23 /min [facility] Oxygen saturation in Arterial blood by Pulse oximetry 2021-03-15 06:19:00 96 /min [facility] Body temperature 2021-03-15 03:05:45 37 [facility] Body weight 2021-03-15 02:46:00 114.76 kg [facility] BMI 2021-03-15 02:46:00 38.47 kg/m2 [facility] Systolic blood pressure 2020-09-09 00:10:00 124 mm[Hg] [facility] Diastolic blood pressure 2020-09-09 00:10:00 77 mm[Hg] [facility] Heart rate 2020-09-09 00:10:00 83 /min [facility] Respiratory rate 2020-09-09 00:10:00 16 /min [facility] Oxygen saturation in Arterial blood by Pulse oximetry 2020-09-09 00:10:00 97 /min [facility] Body temperature 2020-09-08 23:14:00 37.39 Nano [facility] Body weight 2020-09-08 22:49:00 107.956 kg [facility] BMI 2020-09-08 22:49:00 36.19 kg/m2 [facility] Systolic blood pressure 2020-09-09 00:10:00 124 mm[Hg] [facility] Diastolic blood pressure 2020-09-09 00:10:00 77 mm[Hg] [facility] Heart rate 2020-09-09 00:10:00 83 /min Un[facility] Respiratory rate 2020-09-09 00:10:00 16 /min [facility] Oxygen saturation in Arterial blood by Pulse oximetry 2020-09-09 00:10:00 97 /min [facility] Body temperature 2020-09-08 23:14:00 37.39 Nano [facility] Body weight 2020-09-08 22:49:00 107.956 kg [facility] BMI 2020-09-08 22:49:00 36.19 kg/m2 [facility] Systolic blood pressure 2020-09-06 19:30:00 115 mm[Hg] [facility] Diastolic blood pressure 2020-09-06 19:30:00 65 mm[Hg] [facility] Heart rate 2020-09-06 19:30:00 67 /min [facility] Body temperature 2020-09-06 19:30:00 36.83 Nano [facility] Respiratory rate 2020-09-06 19:30:00 19 /min [facility] Oxygen saturation in Arterial blood by Pulse oximetry 2020-09-06 19:30:00 99 /min [facility] Body weight 2020-09-06 15:41:00 107.956 kg [facility] BMI 2020-09-06 15:41:00 36.19 kg/m2 [facility] Systolic blood pressure 2020-09-06 19:30:00 115 mm[Hg] [facility] Diastolic blood pressure 2020-09-06 19:30:00 65 mm[Hg] [facility] Heart rate 2020-09-06 19:30:00 67 /min Un[facility] Body temperature 2020-09-06 19:30:00 36.83 Nano [facility] Respiratory rate 2020-09-06 19:30:00 19 /min [facility] Oxygen saturation in Arterial blood by Pulse oximetry 2020-09-06 19:30:00 99 /min [facility] Body weight 2020-09-06 15:41:00 107.956 kg [facility] BMI 2020-09-06 15:41:00 36.19 kg/m2 [facility] Systolic blood pressure 2020-08-30 13:11:00 136 mm[Hg] [facility] Diastolic blood pressure 2020-08-30 13:11:00 77 mm[Hg] [facility] Heart rate 2020-08-30 13:11:00 74 /min [facility] Body temperature 2020-08-30 13:11:00 36.5 Nano [facility] Respiratory rate 2020-08-30 13:11:00 18 /min [facility] Oxygen saturation in Arterial blood by Pulse oximetry 2020-08-30 13:11:00 96 /min [facility] Body weight 2020-08-30 09:00:00 107.956 kg [facility] BMI 2020-08-30 09:00:00 36.19 kg/m2 [facility] Body height 2020-08-27 07:49:00 172.7 cm [facility] Systolic blood pressure 2020-08-30 13:11:00 136 mm[Hg] [facility] Diastolic blood pressure 2020-08-30 13:11:00 77 mm[Hg] [facility] Heart rate 2020-08-30 13:11:00 74 /min [facility] Body temperature 2020-08-30 13:11:00 36.5 Nano [facility] Respiratory rate 2020-08-30 13:11:00 18 /min [facility] Oxygen saturation in Arterial blood by Pulse oximetry 2020-08-30 13:11:00 96 /min [facility] Body weight 2020-08-30 09:00:00 107.956 kg [facility] BMI 2020-08-30 09:00:00 36.19 kg/m2 [facility] Body height 2020-08-27 07:49:00 172.7 cm [facility] Systolic blood pressure 2020-07-10 05:30:00 123 mm[Hg] [facility] Diastolic blood pressure 2020-07-10 05:30:00 77 mm[Hg] [facility] Heart rate 2020-07-10 05:30:00 75 /min Unive [facility] Respiratory rate 2020-07-10 05:30:00 19 /min [facility] Oxygen saturation in Arterial blood by Pulse oximetry 2020-07-10 05:30:00 97 /min [facility] Body temperature 2020-07-10 00:48:00 37.39 Nano [facility] Body height 2020-07-10 00:48:00 172.7 cm [facility] Body weight 2020-07-10 00:43:00 99.791 kg [facility] BMI 2020-07-10 00:43:00 33.45 kg/m2 [facility] Systolic blood pressure 2020-07-10 05:30:00 123 mm[Hg] [facility] Diastolic blood pressure 2020-07-10 05:30:00 77 mm[Hg] [facility] Heart rate 2020-07-10 05:30:00 75 /min Unive [facility] Respiratory rate 2020-07-10 05:30:00 19 /min [facility] Oxygen saturation in Arterial blood by Pulse oximetry 2020-07-10 05:30:00 97 /min [facility] Body temperature 2020-07-10 00:48:00 37.39 Nano [facility] Body height 2020-07-10 00:48:00 172.7 cm [facility] Body weight 2020-07-10 00:43:00 99.791 kg [facility] BMI 2020-07-10 00:43:00 33.45 kg/m2 [facility] Procedures Procedure Date / Time Performed Performing Clinician Source URINALYSIS 2024-02-04 18:16:[address] CT ABDOMEN PELVIS W CONTRAST 2024-02-04 16:52:00 Dillon [facility] LIPASE 2024-02-04 16:00:00 [facility] COMP. METABOLIC PANEL ([id number]) 2024-02-04 16:00:00 Dillon [facility] CBC WITH DIFF 2024-02-04 16:00:00 Dillon [facility] CONSENT/REFUSAL FOR DIAGNOSIS AND TREATMENT 2023-12-28 08:06:27 Doctor Unassigned, [place] [facility] EKG-12 LEAD 2023-11-06 08:26:[address] LIPASE 2023-11-06 06:15:[address] MAGNESIUM 2023-11-06 06:15:[address] COMP. METABOLIC PANEL ([id number]) 2023-11-06 06:15:00 Nidia Solano [facility] CBC WITH DIFF 2023-11-06 06:15:00 SheilaNidia dyer [facility] URINALYSIS 2023-11-06 06:15:[address] [facility] CONSENT/REFUSAL FOR DIAGNOSIS AND TREATMENT 2023-11-06 05:40:44 Doctor Unassigned, [place] [facility] CT ABDOMEN PELVIS W CONTRAST 2023-11-01 08:32:40 Jose Francisco Walters [facility] LIPASE 2023-11-01 05:45:00 Jose Francisco Walters [facility] COMP. METABOLIC PANEL ([id number]) 2023-11-01 05:45:00 Jose Francisco Walters [facility] CBC WITH DIFF 2023-11-01 05:45:00 Jose Francisco Walters [facility] URINALYSIS 2023-11-01 05:45:00 Jose Francisco Walters [facility] POCT GLUCOSE (AUTOMATED) 2023-11-01 05:41:00 Lena Walters [facility] CONSENT/REFUSAL FOR DIAGNOSIS AND TREATMENT 2023-11-01 05:29:45 Doctor Unassigned, [place] [facility] CT ABDOMEN PELVIS W CONTRAST 2023-10-23 07:06:44 Chapito Contreras [facility] LIPASE 2023-10-23 05:50[facility] METABOLIC PANEL ([id number]) 2023-10-23 05:50:00 Chapito Contreras [facility] CBC WITH DIFF 2023-10-23 05:50:00 Chapito Contreras [facility] URINALYSIS 2023-10-23 05:50:00 Chap[facility] CONSENT/REFUSAL FOR DIAGNOSIS AND TREATMENT 2023-10-23 05:34:08 Doctor Unassigned, [place] [facility] URINALYSIS 2023-09-26 06:12:00 Loren Tam [facility] LIPASE 2023-09-26 05:12:00 Jose BarrettAlvarez [facility] HEPATIC FUNCTION PANEL ([id number]) (ALB,T.PRO,BILI T,BU/BC,ALT,AST,ALK PHOS) 2023-09-26 05:12:00 [facility] BASIC METABOLIC PANEL (NA, K, CL, CO2, GLUCOSE, BUN, CREATININE, CA) 2023-09-26 05:12:00 [facility] CBC WITH DIFF 2023-09-26 05:12:00 Loren [facility] NOTICE OF PRIVACY PRACTICES 2023-09-26 04:50:48 Doctor Unassigned, [place] [facility] CONSENT/REFUSAL FOR DIAGNOSIS AND TREATMENT 2023-09-26 04:50:08 Doctor Unassigned, [place] [facility] CT CHEST PULMONARY ANGIOGRAM 2023-08-24 08:02:29 Patrick Vergara [facility] XR CHEST 1 VW 2023-08-24 04:38:[address] [facility] TROPONIN I 2023-08-24 04:29:[facility]OLIC PANEL ([id number]) 2023-08-24 04:29:00 Patrick Vergara [facility] CBC WITH DIFF 2023-08-24 04:29:[address] [facility] CONSENT/REFUSAL FOR DIAGNOSIS AND TREATMENT 2023-08-24 03:41:11 Doctor Unassigned, [place] [facility] LIPASE 2023-07-07 09:22:00 Chapito Contreras [facility] TROPONIN I 2023-07-07 09:22:00 Chapito Contreras [facility] COMP. METABOLIC PANEL ([id number]) 2023-07-07 09:22:00 Chapito Contreras [facility] CBC WITH DIFF 2023-07-07 09:22:00 Chapito Contreras [facility] URINALYSIS 2023-07-07 09:22:00 Chapito Contreras [facility] CONSENT/REFUSAL FOR DIAGNOSIS AND TREATMENT 2023-07-07 08:49:51 Doctor Unassigned, [place] [facility] POCT GLUCOSE (AUTOMATED) 2023-05-26 02:17:00 Nidia Solano [facility] URINALYSIS 2023-05-26 01:24:00 Nidia Solano [facility] POCT GLUCOSE (AUTOMATED) 2023-05-26 01:22:00 Nidia Solano [facility] TROPONIN I 2023-05-26 00:54:00 Nidia Solano [facility] COVID-19 (ID NOW RAPID TESTING) 2023-05-26 00:54:00 Nidia Solano [facility] ASSIGNMENT OF BENEFITS 2023-05-26 00:29:59 Docto r Unassigned, [place] [facility] XR CHEST 1 VW 2023-05-25 22:41:21 Nidia Solano [facility] LIPASE 2023-05-25 22:33:[address] [facility] 2023-05-25 22:33:[address] TROPONIN I 2023-05-25 22:33:[address] COMP. METABOLIC PANEL ([id number]) 2023-05-25 22:33:00 Nidia Solano [facility] CBC WITH DIFF 2023-05-25 22:33:00 Nidia Solano [facility] N-TERMINAL PRO-BNP 2023-05-25 22:33:00 Nidia Solano Haily [facility] CONSENT/REFUSAL FOR DIAGNOSIS AND TREATMENT 2023-05-25 22:07:05 Doctor Unassigned, [place] [facility] COVID-19 (ID NOW RAPID TESTING) 2023-02-20 23:30:00 Sofia Escobar [facility] CONSENT/REFUSAL FOR DIAGNOSIS AND TREATMENT 2023-02-20 22:54:00 Doctor Unassigned, [place] [facility] CT ABDOMEN PELVIS W CONTRAST 2022-12-29 08:28:18 Chapito Contreras [facility] LIPASE 2022-12-29 07:11:00 Chapito Contreras [facility] COMP. METABOLIC PANEL ([id number]) 2022-12-29 07:11:00 Chapito Contreras [facility] CBC WITH DIFF 2022-12-29 07:11:00 Chapito Contreras [facility] URINALYSIS 2022-12-29 07:11:00 Chapito Contreras [facility] CONSENT/REFUSAL FOR DIAGNOSIS AND TREATMENT 2022-12-29 06:24:27 Doctor Unassigned, [place] [facility] CONSENT/REFUSAL FOR DIAGNOSIS AND TREATMENT 2022-11-21 08:05:19 Doctor Unassigned, [place] [facility] RAPID STREP SCREEN FOR GROUP A 2022-10-29 07:36:00 Marie Morales [facility] CONSENT/REFUSAL FOR DIAGNOSIS AND TREATMENT 2022-10-29 07:23:03 Doctor Unassigned, [place] [facility] CONSENT/REFUSAL FOR DIAGNOSIS AND TREATMENT 2022-06-02 04:34:17 Doctor Unassigned, [place] [facility] FREE T4 2022-05-28 16:06:[address] [facility] THYROID STIMULATING HORMONE 2022-05-28 16:06:00 Singer [facility] COMP. METABOLIC PANEL ([id number]) 2022-05-28 16:06:00 Singer [facility] CBC WITH DIFF 2022-05-28 16:06:00 Saqib Clarke [facility] FREE T3 2022-05-28 16:06:00 Saqib [facility] CONSENT/REFUSAL FOR DIAGNOSIS AND TREATMENT 2022-05-28 14:55:38 Doctor Unassigned, [place] [facility] CT ABDOMEN PELVIS W CONTRAST 2022-05-06 06:06:56 Nidia Solano [facility] LIPASE 2022-05-06 05:17:[address] [facility] MAGNESIUM 2022-05-06 05:17:[address] [facility] TROPONIN I 2022-05-06 05:17:[address] [facility] COMP. METABOLIC PANEL ([id number]) 2022-05-06 05:17:00 Nidia Solano [facility] CBC WITH DIFF 2022-05-06 05:17:00 Nidia Solano [facility] URINALYSIS 2022-05-06 05:17:00 Nidia Solano [facility] RAPID INFLUENZA A/B 2022-05-06 03:48:00 Nidia Solano [facility] COVID-19 (ID NOW RAPID TESTING) 2022-05-06 03:48:00 Nidia Solano [facility] CONSENT/REFUSAL FOR DIAGNOSIS AND TREATMENT 2022-05-06 03:22:49 Doctor Unassigned, [place] [facility] COMP. METABOLIC PANEL ([id number]) 2022-05-01 12:42:00 [facility] 2022-05-01 12:42:00 [facility] CONSENT/REFUSAL FOR DIAGNOSIS AND TREATMENT 2022-05-01 12:23:44 Doctor Unassigned, [place] [facility] URINALYSIS 2022-02-08 06:27:[address] [facility] URINE DRUG (IMMUNOASSAY) - COMPREHENSIVE DRUG SCREEN W/O REFLEX 2022-02-08 06:27:00 Benjamin Ashford [facility] LIPASE 2022-02-08 06:15:[address] [facility] TROPONIN I 2022-02-08 06:15:[address] [facility] COMP. METABOLIC PANEL ([id number]) 2022-02-08 06:15:00 Benjamin Ashford [facility] ETHANOL 2022-02-08 06:15:00 Benjamin Ashford [facility] CBC WITH DIFF 2022-02-08 06:15:00 Benjamin Ashford [facility] PROTHROMBIN TIME / INR 2022-02-08 06:15:00 Jeremy Ashford [facility] ACTIVATED PARTIAL THRMPLAS ELAINE 2022-02-08 06:15:00 Benjamin Ashford [facility] N-TERMINAL PRO-BNP 2022-02-08 06:15:00 Benjamin Ashford [facility] NOTICE OF PRIVACY PRACTICES 2022-02-08 06:01:50 Doctor Unassigned, [place] [facility] CONSENT/REFUSAL FOR DIAGNOSIS AND TREATMENT 2022-02-08 05:59:20 Doctor Unassigned, [place] [facility] CT ABDOMEN PELVIS W CONTRAST 2021-10-15 00:40:39 Marie Morales [facility] LIPASE 2021-10-15 00:26:00 Marie Morales Un [facility] TROPONIN I 2021-10-15 00:26:00 Marie Morales [facility] COMP. METABOLIC PANEL ([id number]) 2021-10-15 00:26:00 Marie Morales [facility] CBC WITH DIFF 2021-10-15 00:26:00 Marie Morales [facility] NOTICE OF PRIVACY PRACTICES 2021-10-14 22:18:20 Doctor Unassigned, [place] [facility] CONSENT/REFUSAL FOR DIAGNOSIS AND TREATMENT 2021-10-14 22:17:56 Doctor Unassigned, [place] [facility] CT ABDOMEN PELVIS W CONTRAST 2021-03-15 04:54:23 Chapito Contreras [facility] COVID-19 (ID NOW RAPID TESTING) 2021-03-15 03:34:00 Chapito Contreras [facility] URINALYSIS 2021-03-15 03:16:00 Chapito Contreras [facility] COMP. METABOLIC PANEL ([id number]) 2021-03-15 03:11:00 Chapito Contreras [facility] CBC WITH DIFF 2021-03-15 03:11:00 Chapito Contreras [facility] CONSENT/REFUSAL FOR DIAGNOSIS AND TREATMENT 2021-03-15 02:38:38 Doctor Unassigned, [place] [facility] LIPASE 2020-09-08 23:14:00 Saqib Clarke [facility] COMP. METABOLIC PANEL ([id number]) 2020-09-08 23:14:00 Saqib Clarke [facility] CBC WITH DIFF 2020-09-08 23:14:00 Saqib Clarke [facility] CONSENT/REFUSAL FOR DIAGNOSIS AND TREATMENT 2020-09-08 22:38:49 Doctor Unassigned, [place] [facility] CT ABDOMEN PELVIS W CONTRAST 2020-09-06 17:05:33 Nidia Solano Haily [facility] LACTIC ACID WHOLE BLOOD 2020-09-06 16:31:00 Nidia Solano [facility] LIPASE 2020-09-06 16:11:00 Nidia Solano [facility] MAGNESIUM 2020-09-06 16:11:00 Nidia Solano [facility] COMP. METABOLIC PANEL ([id number]) 2020-09-06 16:11:00 Nidia Solano Haily [facility] CBC WITH DIFF 2020-09-06 16:11:00 Nidia Solano Haily [facility] NOTICE OF PRIVACY PRACTICES 2020-09-06 15:30:39 Doctor Unassigned, [place] [facility] CONSENT/REFUSAL FOR DIAGNOSIS AND TREATMENT 2020-09-06 15:30:28 Doctor Unassigned, [place] [facility] COMP. METABOLIC PANEL ([id number]) 2020-08-30 08:39:00 Dillon [facility] CBC WITH DIFF 2020-08-30 08:39:00 [facility] 2020-08-28 18:11:06 Patrick No [facility] ECHO ROUTINE W/DOPPLER COLOR 2020-08-28 16:34:45 Oneal [facility] HEPATIC FUNCTION PANEL ([id number]) (ALB,T.PRO,BILI T,BU/BC,ALT,AST,ALK PHOS) 2020-08-28 10:16:00 Favio Chang [facility] BASIC METABOLIC PANEL (NA, K, CL, CO2, GLUCOSE, BUN, CREATININE, CA) 2020-08-28 10:16:00 Oneal [facility] TROPONIN I 2020-08-27 18:11:00 Gricelda No [facility] POCT GLUCOSE (AUTOMATED) 2020-08-27 [facility]:02[facility] 2020-08-27 13:49:00 Clau No [facility] TROPONIN I 2020-08-27 11:35:00 [facility]EL[facility] W WO CONTRAST 2020-08-27 07:38:49 Oneal [facility] COVID-19 (ID NOW RAPID TESTING) 2020-08-27 06:21:00 Benjamin Ashford [facility] URINALYSIS 2020-08-27 06:20:00 Benjamin Ashford [facility] ADC / LCC - DRUG SCREEN TRIAGE 2020-08-27 06:20:00 Benjamin Ashford [facility] XR CHEST 1 VW 2020-08-27 06:05:42 Benjamin Ashford [facility] LIPASE 2020-08-27 05:58:00 Benjamin Ashford [facility] TROPONIN I 2020-08-27 05:58:00 Benjamin Ashford [facility] THYROID STIMULATING HORMONE 2020-08-27 05:58:00 [facility]EL (41981) (ALB,T.PRO,BILI T,BU/BC,ALT,AST,ALK PHOS) 2020-08-27 05:58:00 Benjamin Ashford [facility] BASIC METABOLIC PANEL (NA, K, CL, CO2, GLUCOSE, BUN, CREATININE, CA) 2020-08-27 05:58:00 Benjamin Ashford [facility] LIPID PANEL (85103)(TOTAL CHOLESTEROL, TRIGLYCERIDES, HDL) 2020-08-27 05:58:00 Gricelda No [facility] ETHANOL 2020-08-27 05:58:[address] [facility] CBC WITH DIFF 2020-08-27 05:58:00 Benjamin Ashford [facility] PROTHROMBIN TIME / INR 2020-08-27 05:58:00 Jeremy Ashford [facility] ACTIVATED PARTIAL THRMPLAS ELAINE 2020-08-27 05:58:00 Benjamin Ashford [facility] EKG-12 LEAD 2020-08-27 05:54:03 Benjamin Ashford [facility] NOTICE OF PRIVACY PRACTICES 2020-08-27 05:44:26 Doctor Unassigned, [place] [facility] CONSENT/REFUSAL FOR DIAGNOSIS AND TREATMENT 2020-08-27 05:43:44 Doctor Unassigned, [place] [facility] CONSENT/REFUSAL FOR DIAGNOSIS AND TREATMENT 2020-08-27 05:43:43 Doctor Unassigned, [place] [facility] CT ABDOMEN PELVIS W CONTRAST 2020-07-10 05:12:21 Chapito Conterras [facility] TROPONIN I 2020-07-10 03:49:00 Chapito Contreras [facility] ADC / LCC - DRUG SCREEN TRIAGE 2020-07-10 03:13:00 Chapito Contreras [facility] XR CHEST 1 VW 2020-07-10 01:05:14 Chapito Contreras [facility] LIPASE 2020-07-10 00:55:00 Chapito Contreras [facility] TROPONIN I 2020-07-10 00:55:00 Chapito Contreras [facility] COMP. METABOLIC PANEL (63215) 2020-07-10 00:55:00 Chapito Contreras [facility] CBC WITH DIFF 2020-07-10 00:55:00 Chapito Contreras [facility] PROTHROMBIN TIME / INR 2020-07-10 00:55:00 Yesica Contreras [facility] D-DIMER 2020-07-10 00:55:00 Chapito Contreras [facility] COVID-19 (ID NOW RAPID TESTING) 2020-07-10 00:55:00 Chapito Contreras [facility] EKG-12 LEAD 2020-07-10 00:52:35 Chapito Contreras [facility] Encounters Start Date/Time End Date/Time Encounter Type Admission Type Attending Clinicians Care Facility Care Department Encounter ID Source 2024-11-13 20:42:00 2024-11-13 22:15:00 Emergency X ELSA WHITE PAMALA [facility] ERT [id number] [facility] 2024-11-13 20:42:00 2024-11-13 22:15:00 Emergency Drever, Elsa G [facility] 1.2.840.114 350.1.13.10 4.2.7.2.686 [id number] [id number] [facility] 2024-02-09 00:00:00 2024-03-13 18:08:36 Patient Secure Msg Doctor Unassigned, [place] [facility] 1.2840.114 350.1.13.10 4.2.7.2.686 [id number] [facility] 2024-02-04 10:45:00 2024-02-04 14:36:00 Emergency X BABS BUSTAMANTE [facility] ERT [id number] [facility] 2024-02-04 10:45:00 2024-02-04 14:36:00 Emergency Washington Bustamanteine [facility] 1.2840.114 350.1.13.10 4.2.7.2.686 [id number] [facility] 2023-12-28 03:16:00 2023-12-28 04:32:00 Emergency X JABARISUKHWINDERLEXIE WENDYCHAPITO DELGADILLO [facility] ERT [id number] [facility] 2023-12-28 03:16:00 2023-12-28 04:32:00 Emergency Chapito Contreras Clau [facility] 1.2840.114 350.1.13.10 4.2.7.2.686 [id number] 084 [id number] [facility] 2023-11-05 23:52:00 2023-11-06 02:37:00 Emergency X Nidia SOLANO K [facility] ERT [id number] [facility] 2023-11-05 23:52:00 2023-11-06 02:37:00 Emergency Nidia Solano [facility] 1.2840.114 350.1.13.10 4.2.7.2.686 [id number] [facility] 2023-10-31 23:33:00 2023-11-01 04:19:00 Emergency X JOSE FRANCISCO WALTERS [facility] ERT [id number] [facility] 2023-10-31 23:33:00 2023-11-01 04:19:00 Emergency Jose Francisco Walters [facility] 1.2840.114 350.1.13.10 4.2.7.2.686 [id number] 084 [id number] [facility] 2023-10-22 23:39:00 2023-10-23 02:31:00 Emergency X CHAPITO CONTRERAS [facility] ERT [id number] [facility] 2023-10-22 23:39:00 2023-10-23 02:31:00 Emergency Tim Contreraszaida Clau [facility] 1.840.114 350.1.13.10 4.2.7.2.686 [id number] 084 [id number] [facility] 2023-09-25 23:04:00 2023-09-26 02:30:00 Emergency X LOREN TAM HEE-KWANG [facility] ERT [id number] [facility] 2023-09-25 23:04:00 2023-09-26 02:30:00 Emergency Loren Tam [facility] 1.2840.114 350.1.13.10 4.2.7.2.686 [id number] [facility] 2023-08-25 00:00:00 2023-08-25 00:00:00 Patient Secure Msg Doctor Unassigned, [place] [facility] 1.2840.114 350.1.13.10 4.2.7.2.686 [id number] [facility] 2023-08-23 22:43:00 2023-08-24 02:41:00 Emergency Vergara, Patrick S [facility] 1.2.840.114 350.1.13.10 4.2.7.2.686 [id number] [facility] 2023-08-23 22:43:00 2023-08-24 02:41:00 Emergency X PATRICK VERGARA [facility] ERT [id number] [facility] 2023-07-07 03:51:00 2023-07-07 05:56:00 Emergency X CHAPITO CONTRERAS [facility] ERT [id number] [facility] 2023-07-07 03:51:00 2023-07-07 05:56:00 Emergency Chapito Contreras [facility] 1.2.840.114 350.1.13.10 4.2.7.2.686 [id number] 084 [id number] [facility] 2023-05-25 17:20:00 2023-05-25 22:37:00 Emergency X Nidia SOLANO [facility] ERT [id number] [facility] 2023-05-25 17:20:00 2023-05-25 22:37:00 Emergency Nidia Solano Haily [facility] 1.2.840.114 350.1.13.10 4.2.7.2.686 [id number] [id number] [facility] 2023-02-20 18:06:00 2023-02-20 21:03:00 Emergency X SOFIA ESCOBAR SOFIA [facility] ERT [id number] [facility] 2023-02-20 18:06:00 2023-02-20 21:03:00 Emergency Sofia Escobar [facility] 1.2.840.114 350.1.13.10 4.2.7.2.686 [id number] [id number] [facility] 2023-02-20 00:00:00 2023-02-20 00:00:00 Orders Only Doctor Unassigned, [place] [facility] 1.2840.114 350.1.13.10 4.2.7.2.686 [id number] [id number] [facility] 2022-12-29 00:24:00 2022-12-29 05:29:00 Emergency X CHAPITO CONTRERAS [facility] ERT [id number] [facility] 2022-12-29 00:24:00 2022-12-29 05:29:00 Emergency Chapito Contreras [facility] 1.2.840.114 350.1.13.10 4.2.7.2.686 [id number] [id number] [facility] 2022-11-21 02:14:00 2022-11-21 03:04:00 Emergency X PATRICK VERGARA [facility] ERT [id number] [facility] 2022-11-21 02:14:00 2022-11-21 03:04:00 Emergency Patrick Vergara [facility] 1.2.840.114 350.1.13.10 4.2.7.2.686 [id number] 084 [id number] [facility] 2022-10-29 01:37:00 2022-10-29 02:25:00 Emergency CECILE CHATTERJEERA [facility] ERT [id number] [facility] 2022-10-29 01:37:00 2022-10-29 02:25:00 Emergency CarmenMarie Dee [facility] 1.2840.114 350.1.13.10 4.2.7.2.686 [id number] [id number] [facility] 2022-06-01 23:34:00 2022-06-02 00:39:00 Emergency Dariela CLARKESAQIB [facility] ERT [id number] [facility] 2022-06-01 23:34:00 2022-06-02 00:39:00 Emergency Saqib Clarke [facility] 1.2840.114 350.1.13.10 4.2.7.2.686 [id number] [id number] [facility] 2022-05-28 11:00:00 2022-05-28 13:39:00 Emergency X SAQIB CLARKE [facility] ERT [id number] [facility] 2022-05-28 11:00:00 2022-05-28 13:39:00 Emergency Saqib Clarke [facility] 1.2840.114 350.1.13.10 4.2.7.2.686 [id number] 084 [id number] [facility] 2022-05-05 22:33:00 2022-05-06 01:49:00 Emergency X Nidia SOLANO [facility] ERT [id number] [facility] 2022-05-05 22:33:00 2022-05-06 01:49:00 Emergency Nidia Solano Haily [facility] 1.2.840.114 350.1.13.10 4.2.7.2.686 [id number] 084 [id number] [facility] 2022-05-01 07:33:00 2022-05-01 09:07:00 Emergency SAQIB MEDRANO [facility] ERT [id number] [facility] 2022-05-01 07:33:00 2022-05-01 09:07:00 Emergency Saqib Clarke [facility] 1.2840.114 350.1.13.10 4.2.7.2.686 [id number] [id number] [facility] 2022-02-08 01:00:00 2022-02-08 03:03:00 Emergency X BEREKET BENJAMIN [facility] ERT [id number] [facility] 2022-02-08 01:00:00 2022-02-08 03:03:00 Emergency Benjamin Ashford [facility] 1.2840.114 350.1.13.10 4.2.7.2.686 [id number] [id number] [facility] 2021-10-14 16:40:00 2021-10-14 19:30:00 Emergency X CARMEN MARIE [facility] ERT [id number] [facility] 2021-10-14 16:40:00 2021-10-14 19:30:00 Emergency Marie Morales Dee [facility] 1.2.840.114 350.1.13.10 4.2.7.2.686 [id number] 084 [id number] [facility] 2021-05-15 12:11:58 2021-05-15 23:59:00 Hospital Encounter Geoff Cardona [facility] 1.2.840.114 350.1.13.10 4.2.7.2.686 [id number] [facility] 2021-05-15 12:30:00 2021-05-15 12:30:00 Outpatient R GEOFF CARDONA [facility] [id number] [facility] 2021-05-08 12:30:00 2021-05-08 23:59:00 Hospital Encounter Kiki Mathur [facility] 1.2.840.114 350.1.13.10 4.2.7.2.686 [id number] [facility] 2021-05-08 12:30:00 2021-05-08 12:30:00 Outpatient KIKI GODINEZ [facility] [id number] [facility] 2021-05-06 03:01:00 2021-05-06 04:28:00 Emergency Saqib Clarke [facility] 1.2.840.114 350.1.13.10 4.2.7.2.686 [id number] 084 [id number] [facility] 2021-05-06 03:01:00 2021-05-06 04:28:00 Emergency X SAQIB CLARKE [facility] ERT [id number] [facility] 2021-03-14 21:49:00 2021-03-15 01:22:00 Emergency Chapito Contreras [facility] 1.2.840.114 350.1.13.10 4.2.7.2.686 [id number] [id number] [facility] 2021-03-14 21:49:00 2021-03-15 01:22:00 Emergency Chapito Contreras [facility] 1.2.840.114 350.1.13.10 4.2.7.2.686 [id number] 2021-03-14 21:49:00 2021-03-14 21:49:00 Emergency CHAPITO VELASQUEZ [facility] ERT [id number] [facility] 2020-09-08 16:52:00 2020-09-08 18:13:00 Emergency Saqib Clarke [facility] 1.2.840.114 350.1.13.10 4.2.7.2.686 [id number] 084 [id number] [facility] 2020-09-08 16:52:00 2020-09-08 18:13:00 Emergency Saqib Clarke [facility] 1.2.840.114 350.1.13.10 4.2.7.2.686 [id number] 084 [id number] 2020-09-08 16:52:00 2020-09-08 16:52:00 Emergency SAQIB MEDRANO [facility] ERT [id number] [facility] 2020-09-06 09:52:00 2020-09-06 13:38:00 Emergency Nidia Solano [facility] 1.2.840.114 350.1.13.10 4.2.7.2.686 [id number] [id number] [facility] 2020-09-06 09:52:00 2020-09-06 13:38:00 Emergency Nidia Solano [facility] 1.2.840.114 350.1.13.10 4.2.7.2.686 [id number] 2020-09-06 09:52:00 2020-09-06 09:52:00 Emergency X [facility] ERT [id number] [facility] 2020-09-06 00:00:00 2020-09-06 00:00:00 Orders Only Doctor Unassigned, [place] [facility] 1.2.840.114 350.1.13.10 4.2.7.2.686 [id number] [facility] 2020-09-06 00:00:00 2020-09-06 00:00:00 Orders Only Doctor Unassigned, [place] [facility] 1.2.840.114 350.1.13.10 4.2.7.2.686 [id number] 2020-08-26 23:45:00 2020-08-30 08:05:00 Emergency Jeremy [address]vandana No [facility] 1.2.840.114 350.1.13.10 4.2.7.2.686 [id number] [facility] 2020-08-26 23:45:00 2020-08-30 08:05:[address] [facility] 1.2.840.114 350.1.13.10 4.2.7.2.686 [id number] 2020-08-26 23:43:00 2020-08-26 23:43:00 Emergency X [facility] ERT [id number] [facility] 2020-07-09 19:41:00 2020-07-10 00:40:00 Emergency Chapito Contreras [facility] 1.2.840.114 350.1.13.10 4.2.7.2.686 [id number] 084 [id number] [facility] 2020-07-09 19:41:00 2020-07-10 00:40:00 Emergency Chapito Contreras [facility] 1.2.840.114 350.1.13.10 4.2.7.2.686 [id number] 2020-07-09 19:41:00 2020-07-09 19:41:00 Emergency X CHAPITO CONTRERAS [facility] ERT [id number] [facility] 2005-04-01 12:20:00 2005-04-01 20:14:00 Emergency X MARIBELL CEDILLO [facility] ERT [id number] [facility] Results Test Description Test Time [...] clinically for any signs and symptomsof cystitis. [facility] Ombzi0287-30-25 17:02:35* Test Item Value Reference Range Interpretation Comme nts NA (test code = 9677265761) 139 mmol/L 135-145 K (test code = 1001841618) 4.4 mmol/L 3.5-5.0 CL (test code = 4088669454) 101 mmol/L 98-108 CO2 TOTAL (test code = 4598338229) 31 mmol/L 23-31 AGAP (test code = 6484751091) 7 2-16 BUN (test code = 9327835665) 12 mg/dL 7-23 GLUCOSE (test code = 1729505644) 100 mg/dL 70-110 CREATININE (test code = 2160-0) 0.61 mg/dL 0.60-1.25 TOTAL BILI (test code = 1072889964) 0.5 mg/dL 0.1-1.1 CALCIUM (test code = 8299662606) 9.8 mg/dL 8.6-10.6 T PROTEIN (test code = 0051200437) 8.4 g/dL 6.3-8.2 H ALBUMIN (test code = 2543497530) 4.7 g/dL 3.5-5.0 ALK PHOS (test code = 8939200588) 84 U/L 34-122 ALTv (test code = 1742-6) 23 U/L 5-50 AST(SGOT) (test code = 3907199773) 25 U/L 13-40 eGFR (test code = 24327-0) 120.0 mL/min/1.73m2 CKD-EPI eGFR (2020). Assuming creatinine has been stable day-to-day for at least three months, the eGFR indicates Category G1 (>= 90 mL/min/1.73 m2) Lab Interpretation (test code = 24278-1) [facility] Kzkzz1530-70-09 17:01:54* Test Item Value Reference Range Interpretation Comme nts LIPASE (test code = 0979944434) 42 U/L 0-220 Lab Interpretation (test cod e = 21532-2) Normal [facility] 07:16:16* Test Item Value Reference Range Interpretation Comme nts MAGNESIUM (test code = 6013495122) 2.2 mg/dL 1.7-2.4 Lab Interpretation (test cod e = 86296-1) Normal [facility] (23012)2023-11-06 07:16:15* Test Item Value Reference Range Interpretation Comme nts NA (test code = 1537021748) 138 mmol/L 135-145 K (test code = 4891196758) 3.5 mmol/L 3.5-5.0 CL (test code = 6160285301) 106 mmol/L 98-108 CO2 TOTAL (test code = 8988394387) 23 mmol/L 23-31 AGAP (test code = 4256792394) 9 2-16 BUN (test code = 6681383817) 18 mg/dL 7-23 GLUCOSE (test code = 6584249176) 110 mg/dL 70-110 CREATININE (test code = 6895031871) 0.73 mg/dL 0.60-1.25 TOTAL BILI (test code = 6892669870) 0.4 mg/dL 0.1-1.1 CALCIUM (test code = 7031934718) 9.4 mg/dL 8.6-10.6 T PROTEIN (test code = 2350645505) 8.5 g/dL 6.3-8.2 H ALBUMIN (test code = 9342175294) 4.8 g/dL 3.5-5.0 ALK PHOS (test code = 8611007222) 78 U/L 34-122 ALTv (test code = 1742-6) 42 U/L 5-50 AST(SGOT) (test code = 1358259609) 43 U/L 13-40 H eGFR (test code = 49611-1) 113.6 mL/min/1.73m2 CKD-EPI eGFR (2020). Assuming creatinine has been stable day-to-day for at least three months, the eGFR indicates Category G1 (>= 90 mL/min/1.73 m2) Lab Interpretation (test code = 69303-0) [facility]normal [facility] 07:16:15* Test Item Value Reference Range Interpretation Comme nts LIPASE (test code = 3505246341) 118 U/L 0-220 Lab Interpretation (test cod e = 13505-9) Normal [facility] Center[facility]b with Pgyd4038-01-59 06:49:12* Test Item Value Reference Range Interpretation [...] 33.5 g/dL 31.2-35.0 RDW-SD (test code = 45341-6) 46.4 fL 38.5-51.6 RDW-CV (test code = 788-0) 13.7 % 12.1-15.4 PLT (test code = 777-3) 323 See_Comment [Automated messa ge] The system which generated this result transmitted reference range: 150 - 328 10*3/?L. The reference range was not used to interpret this result as normal/abnormal. MPV (test code = 44764-3) 9.8 fL 9.8-13.0 NRBC/100 WBC (test code = 9533095164) 0.0 See_Comment [Automated [employer] ssage] The system which generated this result transmitted reference range: 0.0 - 10.0 /100 WBCs. The reference range was not used to interpret this result as normal/abnormal. NRBC x10^3 (test code = 3199666005) See_Comment [Automated messa ge] The system which generated this result transmitted reference range: 10*3/?L. The reference range was not used to interpret this result as normal/abnormal. GRAN MAT (NEUT) % (test code = 770-8) 56.1 % IMM GRAN % (test code = 7843433680) 0.50 % LYMPH % (test code = 736-9) 34.8 % MONO % (test code = 5905-5) 6.3 % EOS % (test code = 713-8) 1.4 % BASO % (test code = 706-2) 0.9 % GRAN MAT x10^3(ANC) (test code = 3626944698) 6.38 10*3/uL 1.99-6.95 IMM GRAN x10^3 (test code = 3833362713) 0.06 10*3/uL 0.00-0.06 LYMPH x10^3 (test code = 731-0) 3.95 10*3/uL 1.09-3.23 H MONO x10^3 (test code = 742-7) 0.71 10*3/uL 0.36-1.02 EOS x10^3 (test code = 711-2) 0.16 10*3/uL 0.06-0.53 BASO x10^3 (test code = 704-7) 0.10 10*3/uL 0.01-0.09 H Lab Interpretation (test code = 39509-0) [facility]normal [facility] W QICJZRNZ5687-31-70 09:00:37Ordering physician: JOSE FRANCISCO WALTERS Indication: Acute [...] abdomen andpelvis demonstrate no osseous destructive lesion. [facility] Metabolic Tzspz5239-09-85 06:29:13* Test Item Value Reference Range Interpretation Comme nts NA (test code = 3969727551) 138 mmol/L 135-145 K (test code = 7245867510) 3.8 mmol/L 3.5-5.0 CL (test code = 9241800305) 106 mmol/L 98-108 CO2 TOTAL (test code = 0614965580) 21 mmol/L 23-31 L AGAP (test code = 5311534313) 11 2-16 BUN (test code = 1533542837) 13 mg/dL 7-23 GLUCOSE (test code = 0835297179) 113 mg/dL 70-110 H CREATININE (test code = 7323740789) 0.63 mg/dL 0.60-1.25 TOTAL BILI (test code = 7380574383) 0.7 mg/dL 0.1-1.1 CALCIUM (test code = 0524363526) 9.6 mg/dL 8.6-10.6 T PROTEIN (test code = 8967652344) 9.0 g/dL 6.3-8.2 H ALBUMIN (test code = 4678049772) 5.0 g/dL 3.5-5.0 ALK PHOS (test code = 6334410867) 73 U/L 34-122 ALTv (test code = 1742-6) 33 U/L 5-50 AST(SGOT) (test code = 5763384356) 33 U/L 13-40 eGFR (test code = 87269-2) 118.8 mL/min/1.73m2 CKD-EPI eGFR (2020). Assuming creatinine has been stable day-to-day for at least three months, the eGFR indicates Category G1 (>= 90 mL/min/1.73 m2) Lab Interpretation (test code = 78137-1) [facility]normal [facility], Kvcjl8749-36-74 06:29:13* Test Item Value Reference Range Interpretation Comme nts LIPASE (test code = 2126627291) 89 U/L 0-220 Lab Interpretation (test cod e = 35478-6) Normal [facility] with Fcpvptiwlyrv7023-86-94 06:17:56* Test Item Value Reference Range Interpretation Comme nts WBC (test code = 6690-2) 11.54 See_Comment H [Automated [employer]] The system which generated this result transmitted reference range: 4.20 - 10.70 10*3/?L. The reference range was not used to interpret this result as normal/abnormal. RBC (test code = 789-8) 5.24 See_Comment [Automated [employer]] The system which generated this result transmitted [...] 33.9 g/dL 31.2-35.0 RDW-SD (test code = 36640-8) 46.6 fL 38.5-51.6 RDW-CV (test code = 788-0) 14.0 % 12.1-15.4 PLT (test code = 777-3) 312 See_Comment [Automated [employer]] The system which generated this result transmitted reference range: 150 - 328 10*3/?L. The reference range was not used to interpret this result as normal/abnormal. MPV (test code = 38882-2) 9.7 fL 9.8-13.0 L NRBC/100 WBC (test code = 3780235715) 0.0 See_Comment [Automated me ssage] The system which generated this result transmitted reference range: 0.0 - 10.0 /100 WBCs. The reference range was not used to interpret this result as normal/abnormal. NRBC x10^3 (test code = 2869247735) See_Comment [Automated messa ge] The system which generated this result transmitted reference range: 10*3/?L. The reference range was not used to interpret this result as normal/abnormal. GRAN MAT (NEUT) % (test code = 770-8) 54.9 % IMM GRAN % (test code = 5766800320) 0.30 % LYMPH % (test code = 736-9) 36.0 % MONO % (test code = 5905-5) 6.3 % EOS % (test code = 713-8) 1.6 % BASO % (test code = 706-2) 0.9 % GRAN MAT x10^3(ANC) (test code = 0800292181) 6.35 10*3/uL 1.99-6.95 IMM GRAN x10^3 (test code = 3245225180) 0.03 10*3/uL 0.00-0.06 LYMPH x10^3 (test code = 731-0) 4.15 10*3/uL 1.09-3.23 H MONO x10^3 (test code = 742-7) 0.73 10*3/uL 0.36-1.02 EOS x10^3 (test code = 711-2) 0.18 10*3/uL 0.06-0.53 BASO x10^3 (test code = 704-7) 0.10 10*3/uL 0.01-0.09 H Lab Interpretation (test code = 82399-9) Abnormal [facility] GLUCOSE (AUTOMATED)2023-11-01 05:42:28* Test Item Value Reference Range Interpretation Comme nts POCT GLU (test code = 2383307208) 110 mg/dL 70-110 Lab Interpretation (test cod e = 16046-5) Normal [facility] ABDOMEN PELVIS W [id number] 07:44:05Ordering physician: CHAPITO CONTRERSA Indication: Acute right lower quadrant abdominal pain [...] lesion. 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 The reference range was not used to interpret this result as normal/abnormal. RBC (test code = 789-8) 5.23 See_Comment [Automated [employer]] The system which generated this result transmitted [...] 33.9 g/dL 31.2-35.0 RDW-SD (test code = 13125-1) 45.0 fL 38.5-51.6 RDW-CV (test code = 788-0) 13.6 % 12.1-15.4 PLT (test code = 777-3) 307 See_Comment [Automated [employer]] The system which generated this result transmitted reference range: 150 - 328 10*3/?L. The reference range was not used to interpret this result as normal/abnormal. MPV (test code = 86521-8) 9.3 fL 9.8-13.0 L NRBC/100 WBC (test code = 4111338447) 0.0 See_Comment [Automated [employer]] The system which generated this result transmitted reference range: 0.0 - 10.0 /100 WBCs. The reference range was not used to interpret this result as normal/abnormal. NRBC x10^3 (test code = 9449688600) See_Comment [Automated [employer]] The system which generated this result transmitted reference range: 10*3/?L. The reference range was not used to interpret this result as normal/abnormal. SEG % (test code = 31228-8) 49 % 33-76 LYMPH % (test code = 35348-4) 40 % 14-54 MONO % (test code = 26794-5) 4 % 0-4 EOS % (test code = 99052-0) 7 % 0-3 H ANC (test code = 753-4) 5.81 10*3/uL 1.99-6.95 Lab Interpretation (test code = 54249-3) [facility]:32:13* Test Item Value Reference Range Interpretation Comme nts NA (test code = 0820937008) 140 mmol/L 135-145 K (test code = 9166217653) 3.7 mmol/L 3.5-5.0 CL (test code = 5049734778) 105 mmol/L 98-108 CO2 TOTAL (test code = 5268289025) 23 mmol/L 23-31 AGAP (test code = 7234862379) 12 2-16 BUN (test code = 9880704416) 15 mg/dL 7-23 GLUCOSE (test code = 6315988857) 126 mg/dL 70-110 H CREATININE (test code = 0010584696) 0.89 mg/dL 0.60-1.25 TOTAL BILI (test code = 0137383518) 0.6 mg/dL 0.1-1.1 CALCIUM (test code = 8592659563) 9.5 mg/dL 8.6-10.6 T PROTEIN (test code = 7155363564) 8.6 g/dL 6.3-8.2 H ALBUMIN (test code = 5166354577) 4.7 g/dL 3.5-5.0 ALK PHOS (test code = 4192169325) 84 U/L 34-122 ALTv (test code = 1742-6) 38 U/L 5-50 AST(SGOT) (test code = 3127123293) 33 U/L 13-40 eGFR (test code = 27177-2) 107.0 mL/min/1.73m2 CKD-EPI eGFR (2020). Assuming creatinine has been stable day-to-day for at least three months, the eGFR indicates Category G1 (>= 90 mL/min/1.73 m2) Lab Interpretation (test code = 95391-6) [facility], [id number] 06:31:52* Test Item Value Reference Range Interpretation Comme nts LIPASE (test code = 7117000743) 80 U/L 0-220 Lab Interpretation (test cod e = 40196-9) [facility] (NA, K, CL, CO2, GLUCOSE, BUN, CREATININE, CA)2023-09-26 06:00:26* Test Item Value Reference Range Interpretation Comme nts NA (test code = 9568795680) 139 mmol/L 135-145 K (test code = 0285180090) 3.9 mmol/L 3.5-5.0 CL (test code = 9657408402) 104 mmol/L 98-108 CO2 TOTAL (test code = 4787602682) 25 mmol/L 23-31 AGAP (test code = 6964322347) 10 2-16 BUN (test code = 2614593172) 14 mg/dL 7-23 GLUCOSE (test code = 1997961304) 109 mg/dL 70-110 CREATININE (test code = 9874836176) 0.77 mg/dL 0.60-1.25 CALCIUM (test code = 0617507803) 10.4 mg/dL 8.6-10.6 eGFR (test code = 17047-6) 112.5 mL/min/1.73m2 CKD-EPI eGFR (20 21). Assuming creatinine has been stable day-to-day for at least three months, the eGFR indicates Category G1 (>= 90 mL/min/1.73 m2) [facility] (ALB,T.PRO,BILI T,BU/BC,ALT,AST,ALK PHOS)2023-09-26 06:00:26* Test Item Value Reference Range Interpretation Comme nts TOTAL BILI (test code = 9414203597) 0.6 mg/dL 0.1-1.1 BILI UNCON (test code = 5253128018) 0.4 mg/dL 0.1-1.1 BILI CONJ (test code = 6214715244) 0.0 mg/dL 0.0-0.3 T PROTEIN (test code = 9651172975) 8.6 g/dL 6.3-8.2 H ALBUMIN (test code = 1000825515) 4.7 g/dL 3.5-5.0 ALK PHOS (test code = 3229814479) 91 U/L 34-122 ALTv (test code = 1742-6) 40 U/L 5-50 AST(SGOT) (test code = 7350598862) 27 U/L 13-40 Lab Interpretation (test cod e = 22971-9) [facility] 06:00:25* Test Item Value Reference Range Interpretation Comme nts LIPASE (test code = 2571997184) 73 U/L 0-220 Lab Interpretation (test cod e = 99085-9) Normal [facility] CenterCBC WITH [id number] 05:50:26* Test Item Value Reference Range Interpretation Comme nts WBC (test code = 6690-2) 10.08 See_Comment [Automated [employer]] The system which generated this result transmitted reference range: 4.20 - 10.70 10*3/?L. The reference range was not used to interpret this result as normal/abnormal. RBC (test code = 789-8) 5.24 See_Comment [Automated [employer]] The system which generated this result [...] 33.8 g/dL 31.2-35.0 RDW-SD (test code = 64976-4) 44.0 fL 38.5-51.6 RDW-CV (test code = 788-0) 13.1 % 12.1-15.4 PLT (test code = 777-3) 317 See_Comment [Automated messa ge] The system which generated this result transmitted reference range: 150 - 328 10*3/?L. The reference range was not used to interpret this result as normal/abnormal. MPV (test code = 44681-9) 9.6 fL 9.8-13.0 L NRBC/100 WBC (test code = 2289704945) 0.0 See_Comment [Automated [employer]age] The system which generated this result transmitted reference range: 0.0 - 10.0 /100 WBCs. The reference range was not used to interpret this result as normal/abnormal. NRBC x10^3 (test code = 8357213972) See_Comment [Automated messa ge] The system which generated this result transmitted reference range: 10*3/?L. The reference range was not used to interpret this result as normal/abnormal. GRAN MAT (NEUT) % (test code = 770-8) 50.9 % IMM GRAN % (test code = 0804968496) 0.30 % LYMPH % (test code = 736-9) 38.3 % MONO % (test code = 5905-5) 7.5 % EOS % (test code = 713-8) 2.2 % BASO % (test code = 706-2) 0.8 % GRAN MAT x10^3(ANC) (test code = 1096227912) 5.13 10*3/uL 1.99-6.95 IMM GRAN x10^3 (test code = 8578641025) 0.03 10*3/uL 0.00-0.06 LYMPH x10^3 (test code = 731-0) 3.86 10*3/uL 1.09-3.23 H MONO x10^3 (test code = 742-7) 0.76 10*3/uL 0.36-1.02 EOS x10^3 (test code = 711-2) 0.22 10*3/uL 0.06-0.53 BASO x10^3 (test code = 704-7) 0.08 10*3/uL 0.01-0.09 Lab Interpretation (test code = 97880-1) [facility]normal [facility] CenterTROPONIN [id number] 05:30:49* Test Item Value Reference Range Interpretation Comme nts TROPONIN I (test code = 5585811033) 0.001 ng/mL <=0.034 LAURIE (test code = [...] of biotin. Lab Interpretation (test code = 15009-2) Normal [facility] CenterCOMP[facility] METABOLIC PANEL (32223)2023-08-24 05:19:05* Test Item Value Reference Range Interpretation Comme nts NA (test code = 1883914597) 138 mmol/L 135-145 K (test code = 7274157701) 4.3 mmol/L 3.5-5.0 CL (test code = 9899324207) 100 mmol/L 98-108 CO2 TOTAL (test code = 6938550837) 25 mmol/L 23-31 AGAP (test code = 1914267821) 13 2-16 BUN (test code = 9389616149) 15 mg/dL 7-23 GLUCOSE (test code = 8324603749) 198 mg/dL 70-110 H CREATININE (test code = 1249613976) 0.86 mg/dL 0.60-1.25 TOTAL BILI (test code = 5350804185) 0.3 mg/dL 0.1-1.1 CALCIUM (test code = 5758167676) 10.3 mg/dL 8.6-10.6 T PROTEIN (test code = 3292950880) 8.6 g/dL 6.3-8.2 H ALBUMIN (test code = 9726187542) 4.5 g/dL 3.5-5.0 ALK PHOS (test code = 5038494602) 94 U/L 34-122 ALTv (test code = 1742-6) 44 U/L 5-50 AST(SGOT) (test code = 1157302389) 28 U/L 13-40 eGFR (test code = 48788-7) 108.8 mL/min/1.73m2 CKD-EPI eGFR (2020). Assuming creatinine has been stable day-to-day for at least three months, the eGFR indicates Category G1 (>= 90 mL/min/1.73 m2) Lab Interpretation (test code = 95040-3) Abnormal [facility] WITH [id number] 05:01:26* Test Item Value Reference Range Interpretation Comme nts WBC (test code = 6690-2) 10.38 See_Comment [Automated [employer]] The system which generated this result transmitted reference range: 4.20 - 10.70 10*3/?L. The reference range was not used to interpret this result as normal/abnormal. RBC (test code = 789-8) 5.08 See_Comment [Automated [employer]] The system which generated this result transmitted [...] 33.5 g/dL 31.2-35.0 RDW-SD (test code = 11190-2) 43.8 fL 38.5-51.6 RDW-CV (test code = 788-0) 13.0 % 12.1-15.4 PLT (test code = 777-3) 298 See_Comment [Automated messa ge] The system which generated this result transmitted reference range: 150 - 328 10*3/?L. The reference range was not used to interpret this result as normal/abnormal. MPV (test code = 19767-6) 10.0 fL 9.8-13.0 NRBC/100 WBC (test code = 6546777966) 0.0 See_Comment [Automated [employer]] The system which generated this result transmitted reference range: 0.0 - 10.0 /100 WBCs. The reference range was not used to interpret this result as normal/abnormal. NRBC x10^3 (test code = 3195574833) See_Comment [Automated messa ge] The system which generated this result transmitted reference range: 10*3/?L. The reference range was not used to interpret this result as normal/abnormal. GRAN MAT (NEUT) % (test code = 770-8) 52.4 % IMM GRAN % (test code = 8967490161) 0.30 % LYMPH % (test code = 736-9) 36.6 % MONO % (test code = 5905-5) 7.2 % EOS % (test code = 713-8) 2.6 % BASO % (test code = 706-2) 0.9 % GRAN MAT x10^3(ANC) (test code = 3898560123) 5.44 10*3/uL 1.99-6.95 IMM GRAN x10^3 (test code = 1593193866) 0.03 10*3/uL 0.00-0.06 LYMPH x10^3 (test code = 731-0) 3.80 10*3/uL 1.09-3.23 H MONO x10^3 (test code = 742-7) 0.75 10*3/uL 0.36-1.02 EOS x10^3 (test code = 711-2) 0.27 10*3/uL 0.06-0.53 BASO x10^3 (test code = 704-7) 0.09 10*3/uL 0.01-0.09 Lab Interpretation (test code = 37308-8) Abnormal [facility] GLUCOSE (AUTOMATED)2023-05-26 02:18:34* Test Item Value Reference Range Interpretation Comme nts POCT GLU (test code = 5372763318) 173 mg/dL 70-110 H Lab Interpretation (test cod e = 00217-8) Abnormal [facility] GLUCOSE(AGE >30DAYS)2023-05-26 02:17:00* Test Item Value Reference Range Interpretation Comme nts POCT Glu (age>30days) (test code = 3342) 173 mg/dL 70-110 A Lab Interpretation (test cod e = 80132-1) [facility]normal [facility]TR[facility] [id number] 01:41:57* Test Item Value Reference Range Interpretation Comme nts TROPONIN I (test code = 2598543839) 0.008 ng/mL <=0.034 LAURIE (test code = [...] of biotin. Lab Interpretation (test code = 35539-4) Normal [facility] GLUCOSE (AUTOMATED)2023-05-26 01:23:43* Test Item Value Reference Range Interpretation Comme nts POCT GLU (test code = 7461941733) 185 mg/dL 70-110 H Lab Interpretation (test cod e = 49548-8) [facility]normal [facility] CenterN-TERMINAL [id number] 00:40:36* Test Item Value Reference Range Interpretation Comme nts NT-proBNP (test code = 34539-6) <=125 Lab Interpretation (test cod e = 26980-5) Normal [facility] CenterTROP[facility] [id number] 00:06:55* Test Item Value Reference Range Interpretation Comme nts TROPONIN I (test code = 4916483978) 0.003 ng/mL <=0.034 LAURIE (test code = [...] of biotin. Lab Interpretation (test code = 58792-8) Normal [facility] CenterMAGNESIUM2023-08-06 23:56:12* Test Item Value Reference Range Interpretation Comme nts MAGNESIUM (test code = 4827780642) 2.0 mg/dL 1.7-2.4 Lab Interpretation (test cod e = 76401-3) [facility] CenterCOMP[facility] MET[facility]OLIC [facility]EL (94561)2023-05-25 23:55:52* Test Item Value Reference Range Interpretation Comme nts NA (test code = 0924324155) 138 mmol/L 135-145 K (test code = 3932898184) 4.3 mmol/L 3.5-5.0 CL (test code = 7652022037) 103 mmol/L 98-108 CO2 TOTAL (test code = 3109010359) 22 mmol/L 23-31 L AGAP (test code = 0989601115) 13 2-16 BUN (test code = 4512931449) 22 mg/dL 7-23 GLUCOSE (test code = 1285809217) 274 mg/dL 70-110 H CREATININE (test code = 0156695071) 0.79 mg/dL 0.60-1.25 TOTAL BILI (test code = 4637851236) 0.6 mg/dL 0.1-1.1 CALCIUM (test code = 8387734121) 9.2 mg/dL 8.6-10.6 T PROTEIN (test code = 2594579437) 8.4 g/dL 6.3-8.2 H ALBUMIN (test code = 1911440750) 4.5 g/dL 3.5-5.0 ALK PHOS (test code = 6345961048) 88 U/L 34-122 ALTv (test code = 1742-6) 48 U/L 5-50 AST(SGOT) (test code = 3849310617) 37 U/L 13-40 eGFR (test code = 1081547166) 106.1 mL/min/1.73m2 LAURIE (test code = LAURIE) [...] imaging tests). Lab Interpretation (test code = 38232-1) [facility] 23:55:32* Test Item Value Reference Range Interpretation Comme nts LIPASE (test code = 1786350579) 154 U/L 0-220 Lab Interpretation (test cod e = 80811-0) Normal [facility] WITH [id number] 23:33:34* Test Item Value Reference Range Interpretation [...] 33.7 g/dL 31.2-35.0 RDW-SD (test code = 15084-7) 45.4 fL 38.5-51.6 RDW-CV (test code = 788-0) 13.4 % 12.1-15.4 PLT (test code = 777-3) 286 See_Comment [Automated messa ge] The system which generated this result transmitted reference range: 150 - 328 10*3/?L. The reference range was not used to interpret this result as normal/abnormal. MPV (test code = 36712-5) 10.2 fL 9.8-13.0 NRBC/100 WBC (test code = 3039668596) 0.0 See_Comment [Automated [employer] ssage] The system which generated this result transmitted reference range: 0.0 - 10.0 /100 WBCs. The reference range was not used to interpret this result as normal/abnormal. NRBC x10^3 (test code = 4489202757) See_Comment [Automated me ssage] The system which generated this result transmitted reference range: 10*3/?L. The reference range was not used to interpret this result as normal/abnormal. GRAN MAT (NEUT) % (test code = 770-8) 57.3 % IMM GRAN % (test code = 9398342727) 0.40 % LYMPH % (test code = 736-9) 32.6 % MONO % (test code = 5905-5) 6.8 % EOS % (test code = 713-8) 1.9 % BASO % (test code = 706-2) 1.0 % GRAN MAT x10^3(ANC) (test code = 2895579516) 5.34 10*3/uL 1.99-6.95 IMM GRAN x10^3 (test code = 4888855420) 0.04 10*3/uL 0.00-0.06 LYMPH x10^3 (test code = 731-0) 3.04 10*3/uL 1.09-3.23 MONO x10^3 (test code = 742-7) 0.63 10*3/uL 0.36-1.02 EOS x10^3 (test code = 711-2) 0.18 10*3/uL 0.06-0.53 BASO x10^3 (test code = 704-7) 0.09 10*3/uL 0.01-0.09 [facility] with [id number] 07:42:13* Test Item Value Reference Range Interpretation [...] 33.3 g/dL 31.2-35.0 RDW-SD (test code = 08534-1) 44.4 fL 38.5-51.6 RDW-CV (test code = 788-0) 13.6 % 12.1-15.4 PLT (test code = 777-3) 187 See_Comment [Automated messa ge] The system which generated this result transmitted reference range: 150 - 328 10*3/?L. The reference range was not used to interpret this result as normal/abnormal. MPV (test code = 15329-5) 10.4 fL 9.8-13.0 NRBC/100 WBC (test code = 5099357013) 0.0 See_Comment [Automated [employer]] The system which generated this result transmitted reference range: 0.0 - 10.0 /100 WBCs. The reference range was not used to interpret this result as normal/abnormal. NRBC x10^3 (test code = 8711115958) See_Comment [Automated [employer]] The system which generated this result transmitted reference range: 10*3/?L. The reference range was not used to interpret this result as normal/abnormal. GRAN MAT (NEUT) % (test code = 770-8) 55.0 % IMM GRAN % (test code = 6046213690) 0.50 % LYMPH % (test code = 736-9) 34.8 % MONO % (test code = 5905-5) 6.5 % EOS % (test code = 713-8) 2.5 % BASO % (test code = 706-2) 0.7 % GRAN MAT x10^3(ANC) (test code = 1541625007) 5.95 10*3/uL 1.99-6.95 IMM GRAN x10^3 (test code = 0756941461) 0.05 10*3/uL 0.00-0.06 LYMPH x10^3 (test code = 731-0) 3.77 10*3/uL 1.09-3.23 H MONO x10^3 (test code = 742-7) 0.70 10*3/uL 0.36-1.02 EOS x10^3 (test code = 711-2) 0.27 10*3/uL 0.06-0.53 BASO x10^3 (test code = 704-7) 0.08 10*3/uL 0.01-0.09 Lab Interpretation (test code = 32670-4) [facility]normal [facility] CenterComplete Metabolic [id number] 07:32:47* Test Item Value Reference Range Interpretation Comme nts NA (test code = 2160918658) 136 mmol/L 135-145 K (test code = 2979018601) 4.2 mmol/L 3.5-5.0 CL (test code = 0346654005) 104 mmol/L 98-108 CO2 TOTAL (test code = 8813903637) 21 mmol/L 23-31 L AGAP (test code = 8574787495) 11 2-16 BUN (test code = 6278057230) 17 mg/dL 7-23 GLUCOSE (test code = 9357224087) 125 mg/dL 70-110 H CREATININE (test code = 3642669714) 0.63 mg/dL 0.60-1.25 TOTAL BILI (test code = 6199807204) 0.3 mg/dL 0.1-1.1 CALCIUM (test code = 2621963102) 9.3 mg/dL 8.6-10.6 T PROTEIN (test code = 1948588435) 7.8 g/dL 6.3-8.2 ALBUMIN (test code = 4672319207) 4.5 g/dL 3.5-5.0 ALK PHOS (test code = 8796403103) 97 U/L 34-122 ALTv (test code = 1742-6) 42 U/L 5-50 AST(SGOT) (test code = 5685385590) 34 U/L 13-40 eGFR (test code = 3243014224) 137.7 mL/min/1.73m2 LAURIE (test code = LAURIE) [...] imaging tests). Lab Interpretation (test code = 13306-3) [facility]normal [facility] CenterLipase, [id number] 07:31:52* Test Item Value Reference Range Interpretation Comme [facility] LIPASE (test code = 2371333007) 73 U/L 0-220 Lab Interpretation (test cod e = 59965-4) Normal [facility] CenterTHYROID STIMULATING [id number] 18:17:21 * Test Item Value Reference Range Interpretation Comme nts TSH (test code = 6258001172) See_Comment H [Automated [employer]] The system which generated this result transmitted reference range: 0.45 - 4.70 mIU/L. The reference range was not used to interpret this result as normal/abnormal. Lab Interpretation (test code = 66538-0) [facility]normal [facility] CenterFREE [id number] 16:53:41* Test Item Value Reference Range Interpretation Comme nts FREE T4 (test code = 7053719299) See_Comment L [Automated [employer]] The system which generated this result transmitted reference range: 0.78 - 2.20 ng/dL:. The reference range was not used to interpret this result as normal/abnormal. Lab Interpretation (test code = 48445-3) [facility] [id number] 16:53:04* Test Item Value Reference Range Interpretation Comme nts FREE T3 (test code = 8322894985) 1.50 pg/mL 2.77-5.27 L Lab Interpretation (test cod e = 35642-2) Abnormal [facility]. METABOLIC PANEL (22191)2022-05-28 16:37:03* Test Item Value Reference Range Interpretation Comme nts NA (test code = 6346781878) 138 mmol/L 135-145 K (test code = 0889851797) 4.4 mmol/L 3.5-5 CL (test code = 0915242123) 101 mmol/L 98-108 CO2 TOTAL (test code = 7270974572) 27 mmol/L 23-31 AGAP (test code = 3670593968) 2-16 BUN (test code = 9907262995) 14 mg/dL 7-23 GLUCOSE (test code = 2560935859) 102 mg/dL 70-110 CREATININE (test code = 1023547139) 0.82 mg/dL 0.6-1.25 TOTAL BILI (test code = 9995905764) 0.5 mg/dL 0.1-1.1 CALCIUM (test code = 7712858301) 9.3 mg/dL 8.6-10.6 T PROTEIN (test code = 1249699726) 8.3 g/dL 6.3-8.2 H ALBUMIN (test code = 5228686932) 4.8 g/dL 3.5-5 ALK PHOS (test code = 8247289851) 75 U/L 34-122 ALTv (test code = 1742-6) 56 U/L 5-50 H AST(SGOT) (test code = 0489085344) 42 U/L 13-40 H eGFR (test code = 1118683571) mL/min/1.73m2 LAURIE (test code = LAURIE) Association [...] imaging tests). Lab Interpretation (test code = 61019-7) Abnormal [facility] WITH [id number] 16:25:38* Test Item Value Reference Range Interpretation Comme nts WBC (test code = 6690-2) See_Comment [[email or web address]] The system which generated this result transmitted reference range: 4.20 - 10.70 10*3/?L. The reference range was not used to interpret this result as normal/abnormal. RBC (test code = 789-8) See_Comment [[email or web address]] The system which generated this result transmitted [...] 33.0 g/dL 31.2-35 RDW-SD (test code = 15981-3) 48.1 fL 38.5-51.6 RDW-CV (test code = 788-0) 14.2 % 12.1-15.4 PLT (test code = 777-3) See_Comment [Automated [employer]] The system which generated this result transmitted reference range: 150 - 328 10*3/?L. The reference range was not used to interpret this result as normal/abnormal. MPV (test code = 18712-4) 9.5 fL 9.8-13 L NRBC/100 WBC (test code = 1366294384) See_Comment [Automated [employer]] The system which generated this result transmitted reference range: 0.0 - 10.0 /100 WBCs. The reference range was not used to interpret this result as normal/abnormal. NRBC x10^3 (test code = 7259138879) See_Comment [Automated [employer]] The system which generated this result transmitted reference range: 10*3/?L. The reference range was not used to interpret this result as normal/abnormal. GRAN MAT (NEUT) % (test code = 770-8) 56.3 % IMM GRAN % (test code = 6915609873) 0.70 % LYMPH % (test code = 736-9) 32.8 % MONO % (test code = 5905-5) 6.2 % EOS % (test code = 713-8) 2.7 % BASO % (test code = 706-2) 1.3 % GRAN MAT x10^3(ANC) (test code = 6489836136) 4.87 10*3/uL 1.99-6.95 IMM GRAN x10^3 (test code = 8832574145) 0.06 10*3/uL 0-0.06 LYMPH x10^3 (test code = 731-0) 2.84 10*3/uL 1.09-3.23 MONO x10^3 (test code = 742-7) 0.54 10*3/uL 0.36-1.02 EOS x10^3 (test code = 711-2) 0.23 10*3/uL 0.06-0.53 BASO x10^3 (test code = 704-7) 0.11 10*3/uL 0.01-0.09 H Lab Interpretation (test code = 23865-5) [facility]MAG[facility] 06:03:53* Test Item Value Reference Range Interpretation Comme nts MAGNESIUM (test code = 7860652748) 1.8 mg/dL 1.7-2.4 Lab Interpretation (test cod e = 13841-9) Normal [facility] CenterTR[facility] [id number] 06:00:52* Test Item Value Reference Range Interpretation Comments TROPONIN I (test code = 1932441513) 0.002 ng/mL See_Comment [Automated message] The system [...] of biotin. Lab Interpretation (test code = 60605-1) [facility] CenterCOMP[facility]OLIC PANEL (22542)2022-05-06 05:49:11* Test Item Value Reference Range Interpretation Comme nts NA (test code = 9482412216) 136 mmol/L 135-145 K (test code = 3180889316) 4.4 mmol/L 3.5-5 CL (test code = 6992772397) 100 mmol/L 98-108 CO2 TOTAL (test code = 4683369027) 23 mmol/L 23-31 AGAP (test code = 6737056078) 2-16 BUN (test code = 0715292380) 16 mg/dL 7-23 GLUCOSE (test code = 9108218653) 116 mg/dL 70-110 H CREATININE (test code = 8958403548) 0.81 mg/dL 0.6-1.25 TOTAL BILI (test code = 0378563024) 0.6 mg/dL 0.1-1.1 CALCIUM (test code = 4806448588) 10.3 mg/dL 8.6-10.6 T PROTEIN (test code = 1007486442) 9.2 g/dL 6.3-8.2 H ALBUMIN (test code = 8539641839) 5.3 g/dL 3.5-5 H ALK PHOS (test code = 8365773455) 89 U/L 34-122 ALTv (test code = 1742-6) 44 U/L 5-50 AST(SGOT) (test code = 5253133741) 36 U/L 13-40 eGFR (test code = 5204510751) mL/min/1.73m2 LAURIE (test code = LAURIE) Association [...] imaging tests). Lab Interpretation (test code = 92248-1) [facility] 05:48:51* Test Item Value Reference Range Interpretation Comme nts LIPASE (test code = 1904229924) 67 U/L 0-220 Lab Interpretation (test cod e = 60870-7) Normal [facility] CenterCB WITH [id number] 05:36:33* Test Item Value Reference Range Interpretation [...] 34.1 g/dL 31.2-35 RDW-SD (test code = 28015-1) 45.9 fL 38.5-51.6 RDW-CV (test code = 788-0) 13.9 % 12.1-15.4 PLT (test code = 777-3) See_Comment [Automated [employer] ge] The system which generated this result transmitted reference range: 150 - 328 10*3/?L. The reference range was not used to interpret this result as normal/abnormal. MPV (test code = 39711-1) 9.5 fL 9.8-13 L NRBC/100 WBC (test code = 3400994757) See_Comment [Automated [employer]] The system which generated this result transmitted reference range: 0.0 - 10.0 /100 WBCs. The reference range was not used to interpret this result as normal/abnormal. NRBC x10^3 (test code = 4607170738) See_Comment [Automated [employer]] The system which generated this result transmitted reference range: 10*3/?L. The reference range was not used to interpret this result as normal/abnormal. GRAN MAT (NEUT) % (test code = 770-8) 60.3 % IMM GRAN % (test code = 7315282322) 0.80 % LYMPH % (test code = 736-9) 27.6 % MONO % (test code = 5905-5) 6.8 % EOS % (test code = 713-8) 3.5 % BASO % (test code = 706-2) 1.0 % GRAN MAT x10^3(ANC) (test code = 8819600939) 6.95 10*3/uL 1.99-6.95 IMM GRAN x10^3 (test code = 1548194949) 0.09 10*3/uL 0-0.06 H LYMPH x10^3 (test code = 731-0) 3.19 10*3/uL 1.09-3.23 MONO x10^3 (test code = 742-7) 0.79 10*3/uL 0.36-1.02 EOS x10^3 (test code = 711-2) 0.40 10*3/uL 0.06-0.53 BASO x10^3 (test code = 704-7) 0.12 10*3/uL 0.01-0.09 H Lab Interpretation (test code = 51162-6) Abnormal [facility]. METABOLIC PANEL (87532)2022-05-01 13:28:01* Test Item Value Reference Range Interpretation Comme nts NA (test code = 5164710320) 139 mmol/L 135-145 K (test code = 2203784947) 4.7 mmol/L 3.5-5 CL (test code = 3638558094) 104 mmol/L 98-108 CO2 TOTAL (test code = 0553048207) 23 mmol/L 23-31 AGAP (test code = 4319499501) 2-16 BUN (test code = 0790322290) 14 mg/dL 7-23 GLUCOSE (test code = 4223060908) 128 mg/dL 70-110 H CREATININE (test code = 2390388799) 0.62 mg/dL 0.6-1.25 TOTAL BILI (test code = 5180059452) 0.4 mg/dL 0.1-1.1 CALCIUM (test code = 6608614314) 9.2 mg/dL 8.6-10.6 T PROTEIN (test code = 6656945594) 8.1 g/dL 6.3-8.2 ALBUMIN (test code = 2324609194) 4.6 g/dL 3.5-5 ALK PHOS (test code = 2507520650) 92 U/L 34-122 ALTv (test code = 1742-6) 43 U/L 5-50 AST(SGOT) (test code = 4433250730) 30 U/L 13-40 eGFR (test code = 6879845226) mL/min/1.73m2 LAURIE (test code = LAURIE) Association [...] imaging tests). Lab Interpretation (test code = 69648-3) Abnormal [facility] WITH [id number] 13:20:02* Test Item Value Reference Range Interpretation [...] 32.8 g/dL 31.2-35 RDW-SD (test code = 74248-5) 47.5 fL 38.5-51.6 RDW-CV (test code = 788-0) 14.1 % 12.1-15.4 PLT (test code = 777-3) See_Comment [Automated messa ge] The system which generated this result transmitted reference range: 150 - 328 10*3/?L. The reference range was not used to interpret this result as normal/abnormal. MPV (test code = 69359-7) 9.3 fL 9.8-13 L NRBC/100 WBC (test code = 6607203067) See_Comment [Automated [employer] ssage] The system which generated this result transmitted reference range: 0.0 - 10.0 /100 WBCs. The reference range was not used to interpret this result as normal/abnormal. NRBC x10^3 (test code = 2918350196) See_Comment [Automated messa ge] The system which generated this result transmitted reference range: 10*3/?L. The reference range was not used to interpret this result as normal/abnormal. GRAN MAT (NEUT) % (test code = 770-8) 58.9 % IMM GRAN % (test code = 9601754048) 0.60 % LYMPH % (test code = 736-9) 29.2 % MONO % (test code = 5905-5) 6.8 % EOS % (test code = 713-8) 3.5 % BASO % (test code = 706-2) 1.0 % GRAN MAT x10^3(ANC) (test code = 8980140328) 5.80 10*3/uL 1.99-6.95 IMM GRAN x10^3 (test code = 5217428312) 0.06 10*3/uL 0-0.06 LYMPH x10^3 (test code = 731-0) 2.87 10*3/uL 1.09-3.23 MONO x10^3 (test code = 742-7) 0.67 10*3/uL 0.36-1.02 EOS x10^3 (test code = 711-2) 0.34 10*3/uL 0.06-0.53 BASO x10^3 (test code = 704-7) 0.10 10*3/uL 0.01-0.09 H Lab Interpretation (test code = 84394-2) [facility] [id number] 07:04:38* Test Item Value Reference Range Interpretation Comments TROPONIN I (test code = 8899968301) 0.002 ng/mL See_Comment [Automated message] The system [...] of biotin. Lab Interpretation (test code = 31382-6) Normal [facility]N-[facility]AL [id number]-[id number] 07:00:14* Test Item Value Reference Range Interpretation Comme nts NT-proBNP (test code = 4505788284) 25 pg/mL See_Comment [Automated message] The system which generated this result transmitted reference range: <=125. The reference range was not used to interpret this result as normal/abnormal. LAURIE (test code = LAURIE) Biotin has been reported to cause a negative bias, interpret results relative to patient's use of biotin. Lab Interpretation (test code = 85318-1) [facility]ETHANOL2022-[facility] 06:53:02* Test Item Value Reference Range Interpretation Comme nts ALCOHOL (test code = 4693277583) <10 mg/dL LAURIE (test code = LAURIE) <10 [id number] Toxic>100 Depression of [facility] ASSISTANT>400 Fatalities Reported [facility] 06:50:57* Test Item Value Reference Range Interpretation Comme nts LIPASE (test code = 4181998860) 65 U/L 0-220 Lab Interpretation (test cod e = 56033-9) [facility] CenterCOMP[facility] MET[facility]OLIC PANEL (93681)2022-02-08 06:50:57* Test Item Value Reference Range Interpretation Comme nts NA (test code = 2778683731) 138 mmol/L 135-145 K (test code = 0528678651) 4.3 mmol/L 3.5-5.0 CL (test code = 4052217241) 103 mmol/L 98-108 CO2 TOTAL (test code = 5434901145) 23 mmol/L 23-31 AGAP (test code = 4524395246) 2-16 BUN (test code = 5585739360) 14 mg/dL 7-23 GLUCOSE (test code = 7717780691) 142 mg/dL 70-110 H CREATININE (test code = 2153215385) 0.60 mg/dL 0.60-1.25 TOTAL BILI (test code = 5517567501) 0.5 mg/dL 0.1-1.1 CALCIUM (test code = 2069774292) 9.1 mg/dL 8.6-10.6 T PROTEIN (test code = 7740816286) 7.9 g/dL 6.3-8.2 ALBUMIN (test code = 2077175401) 4.5 g/dL 3.5-5.0 ALK PHOS (test code = 2143671891) 81 U/L 34-122 ALTv (test code = 1742-6) 28 U/L 5-50 AST(SGOT) (test code = 2303500938) 24 U/L 13-40 eGFR (test code = 7806704271) mL/min/1.73m2 LAURIE (test code = LAURIE) Association [...] imaging tests). Lab Interpretation (test code = 82689-1) Abnormal [facility] CenterACTIVATED PARTIAL THRMPLAS [id number] 06:47:31* Test Item Value Reference Range Interpretation [...] 30 seconds. Lab Interpretation (test code = 89921-8) Normal [facility] CenterPROTHROMBIN TIME / [id number] 06:45:33* Test Item Value Reference Range Interpretation Comme nts PROTIME PATIENT (test code = 5964-2) See_Comment [Automated [employer]] The system which generated this result transmitted reference range: 12.0 - 14.7 Seconds. The reference range was not used to interpret this result as normal/abnormal. INR (test code = 6301-6) Normal INR <1.1; Warfarin Therapeutic range 2.0 to 3.0 or 2.5 to 3.5, depending upon the indications. Lab Interpretation (test code = 94784-0) [facility] CenterCBC WITH [id number] 06:37:36* Test Item Value Reference Range Interpretation Comme nts WBC (test code = 6690-2) See_Comment [Automated messa ge] The system which generated this result transmitted reference range: 4.20 - 10.70 10*3/?L. The reference range was not used to interpret this result as normal/abnormal. RBC (test code = 789-8) See_Comment [Automated [employer]] The system which generated this result [...] 33.4 g/dL 31.2-35.0 RDW-SD (test code = 50390-6) 42.7 fL 38.5-51.6 RDW-CV (test code = 788-0) 13.1 % 12.1-15.4 PLT (test code = 777-3) See_Comment [Automated messa ge] The system which generated this result transmitted reference range: 150 - 328 10*3/?L. The reference range was not used to interpret this result as normal/abnormal. MPV (test code = 57208-2) 9.7 fL 9.8-13.0 L NRBC/100 WBC (test code = 6201047431) See_Comment [Automated [employer] ssage] The system which generated this result transmitted reference range: 0.0 - 10.0 /100 WBCs. The reference range was not used to interpret this result as normal/abnormal. NRBC x10^3 (test code = 9094540603) <0.01 See_Comment [Automated [employer]] The system which generated this result transmitted reference range: 10*3/?L. The reference range was not used to interpret this result as normal/abnormal. GRAN MAT (NEUT) % (test code = 770-8) 54.9 % IMM GRAN % (test code = 8127634182) 0.70 % LYMPH % (test code = 736-9) 32.9 % MONO % (test code = 5905-5) 8.7 % EOS % (test code = 713-8) 2.0 % BASO % (test code = 706-2) 0.8 % GRAN MAT x10^3(ANC) (test code = 2446626976) 5.84 10*3/uL 1.99-6.95 IMM GRAN x10^3 (test code = 1666982041) 0.07 10*3/uL 0.00-0.06 H LYMPH x10^3 (test code = 731-0) 3.50 10*3/uL 1.09-3.23 H MONO x10^3 (test code = 742-7) 0.92 10*3/uL 0.36-1.02 EOS x10^3 (test code = 711-2) 0.21 10*3/uL 0.06-0.53 BASO x10^3 (test code = 704-7) 0.09 10*3/uL 0.01-0.09 Lab Interpretation (test code = 34015-2) Abnormal [facility] CenterTROPONIN [id number] 01:09:15* Test Item Value Reference Range Interpretation Comments TROPONIN I (test code = 8399619828) 0.003 ng/mL See_Comment [Automated message] The system [...] of biotin. Lab Interpretation (test code = 33341-9) Normal [facility] CenterCOMP. METABOLIC PANEL (83879)2021-10-15 00:56:56* Test Item Value Reference Range Interpretation Comme nts NA (test code = 4758803252) 135 mmol/L 135-145 K (test code = 2272389818) 4.6 mmol/L 3.5-5.0 CL (test code = 8915384088) 101 mmol/L 98-108 CO2 TOTAL (test code = 5648741690) 25 mmol/L 23-31 AGAP (test code = 4708965641) 2-16 BUN (test code = 4032003916) 20 mg/dL 7-23 GLUCOSE (test code = 9495816642) 130 mg/dL 70-110 H CREATININE (test code = 1327648333) 0.92 mg/dL 0.60-1.25 TOTAL BILI (test code = 4572063747) 0.4 mg/dL 0.1-1.1 CALCIUM (test code = 6302743049) 10.0 mg/dL 8.6-10.6 T PROTEIN (test code = 3828624927) 8.5 g/dL 6.3-8.2 H ALBUMIN (test code = 0287464654) 4.8 g/dL 3.5-5.0 ALK PHOS (test code = 3086424517) 89 U/L 34-122 ALTv (test code = 1742-6) 59 U/L 5-50 H AST(SGOT) (test code = 3126407436) 38 U/L 13-40 eGFR (test code = 1910578087) mL/min/1.73m2 LAURIE (test code = LAURIE) Association [...] imaging tests). Lab Interpretation (test code = 23018-9) [facility]normal [facility] CenterLIPASE2021-[facility] 00:56:36* Test Item Value Reference Range Interpretation Comme nts LIPASE (test code = 8214622285) 77 U/L 0-220 Lab Interpretation (test cod e = 76868-5) Normal [facility] CenterCB WITH [id number] 00:37:36* Test Item Value Reference Range Interpretation Comme nts WBC (test code = 6690-2) See_Comment [Automated messa ge] The system which generated this result transmitted reference range: 4.20 - 10.70 10*3/?L. The reference range was not used to interpret this result as normal/abnormal. RBC (test code = 789-8) See_Comment [Automated [employer]] The system which generated this result [...] 33.6 g/dL 31.2-35.0 RDW-SD (test code = 19260-5) 44.2 fL 38.5-51.6 RDW-CV (test code = 788-0) 13.3 % 12.1-15.4 PLT (test code = 777-3) See_Comment [Automated [employer]] The system which generated this result transmitted reference range: 150 - 328 10*3/?L. The reference range was not used to interpret this result as normal/abnormal. MPV (test code = 94763-6) 9.5 fL 9.8-13.0 L NRBC/100 WBC (test code = 1288206662) See_Comment [Automated [employer] ssage] The system which generated this result transmitted reference range: 0.0 - 10.0 /100 WBCs. The reference range was not used to interpret this result as normal/abnormal. NRBC x10^3 (test code = 2062819657) <0.01 See_Comment [Automated messa ge] The system which generated this result transmitted reference range: 10*3/?L. The reference range was not used to interpret this result as normal/abnormal. GRAN MAT (NEUT) % (test code = 770-8) 55.3 % IMM GRAN % (test code = 7141226069) 0.60 % LYMPH % (test code = 736-9) 32.5 % MONO % (test code = 5905-5) 7.8 % EOS % (test code = 713-8) 2.7 % BASO % (test code = 706-2) 1.1 % GRAN MAT x10^3(ANC) (test code = 1846977891) 5.74 10*3/uL 1.99-6.95 IMM GRAN x10^3 (test code = 5034797469) 0.06 10*3/uL 0.00-0.06 LYMPH x10^3 (test code = 731-0) 3.37 10*3/uL 1.09-3.23 H MONO x10^3 (test code = 742-7) 0.81 10*3/uL 0.36-1.02 EOS x10^3 (test code = 711-2) 0.28 10*3/uL 0.06-0.53 BASO x10^3 (test code = 704-7) 0.11 10*3/uL 0.01-0.09 H Lab Interpretation (test code = 41089-1) [facility]normal [facility] CenterCOVID[facility] (ID NOW RAPID TESTING)2021-03-15 04:10:11* Test Item Value Reference Range Interpretation Comme nts SARS-CoV-2 Rapid ID NOW (test code = 25683-4) Not Detected Not Detected LAURIE (test code = LAURIE) ID NOW COVID-19 As say is an isothermal nucleic acid amplification test intended for the qualitative detection of nucleic acid from SARS-CoV-2 viral RNA in nasopharyngeal (PRESIDENT [employer] CEO) specimens. It is used under Emergency Use [...] clinically indicated. Lab Interpretation (test code = 30793-8) Normal [facility] CenterCOMP. METABOLIC PANEL (68534)2021-03-15 03:35:30* Test Item Value Reference Range Interpretation Comme nts NA (test code = 0099720180) 139 mmol/L 135-145 K (test code = 4153449656) 3.2 mmol/L 3.5-5.0 L CL (test code = 0269528609) 109 mmol/L 98-108 H CO2 TOTAL (test code = 8375437670) 23 mmol/L 23-31 AGAP (test code = 2736282721) 2-16 BUN (test code = 5898327010) 19 mg/dL 7-23 GLUCOSE (test code = 3609144751) 150 mg/dL 70-110 H CREATININE (test code = 1657155952) 0.81 mg/dL 0.60-1.25 TOTAL BILI (test code = 3763623900) 0.3 mg/dL 0.1-1.1 CALCIUM (test code = 1677953850) 8.2 mg/dL 8.6-10.6 L T PROTEIN (test code = 1522913630) 6.9 g/dL 6.3-8.2 ALBUMIN (test code = 4283876543) 4.0 g/dL 3.5-5.0 ALK PHOS (test code = 7884784771) 77 U/L 34-122 ALTv (test code = 1742-6) 22 U/L 5-50 AST(SGOT) (test code = 4311740678) 26 U/L 13-40 eGFR (test code = 7037456816) mL/min/1.73m2 LAURIE (test code = LAURIE) Association [...] imaging tests). Lab Interpretation (test code = 08778-9) [facility]normal [facility] CenterURINALYSIS2021-05-27 03:35:00* Test Item Value Reference Range Interpretation Comme nts APPEARANCE (test code = 9776519034) Clear Clear COLOR (test code = 2858079472) Yellow Yellow PH (test code = 2663084539) 4.8-8.0 SP GRAVITY (test code = 5904534090) 1.003-1.030 GLU U QUAL (test code = 3940453048) Normal Normal BLOOD (test code = 4796646233) Negative Negative KETONES (test code = 2439096622) 5 mg/dL Negative A PROTEIN (test code = 2887-8) Negative Negative UROBILIN (test code = 7233165057) Normal Normal BILIRUBIN (test code = 7015124578) Negative Negative NITRITE (test code = 5116185156) Negative Negative LEUK KENNY (test code = 1466892168) Negative Negative RBC/HPF (test code = 8895772821) <1 See_Comment [Automated [employer]] The system which generated this result transmitted reference range: 0 - 3 HPF. The reference range was not used to interpret this result as normal/abnormal. WBC/HPF (test code = 0465778580) <1 See_Comment [Automated [employer]] The system which generated this result transmitted reference range: 0 - 5 HPF. The reference range was not used to interpret this result as normal/abnormal. BACTERIA (test code = 7575717942) Negative Negative MUCOUS (test code = 0696179394) Slight Negative LPF A SQ EPITH (test code = 8433319661) <1 HPF Lab Interpretation (test code = 75431-3) Abnormal [facility] WITH [id number] 03:22:25* Test Item Value Reference Range Interpretation [...] 33.3 g/dL 31.2-35.0 RDW-SD (test code = 88469-2) 45.8 fL 38.5-51.6 RDW-CV (test code = 788-0) 13.7 % 12.1-15.4 PLT (test code = 777-3) See_Comment H [Automated messa ge] The system which generated this result transmitted reference range: 150 - 328 10*3/?L. The reference range was not used to interpret this result as normal/abnormal. MPV (test code = 80468-9) 9.4 fL 9.8-13.0 L NRBC/100 WBC (test code = 3062961572) See_Comment [Automated me ssage] The system which generated this result transmitted reference range: 0.0 - 10.0 /100 WBCs. The reference range was not used to interpret this result as normal/abnormal. NRBC x10^3 (test code = 9628778975) <0.01 See_Comment [Automated messa ge] The system which generated this result transmitted reference range: 10*3/?L. The reference range was not used to interpret this result as normal/abnormal. GRAN MAT (NEUT) % (test code = 770-8) 58.4 % IMM GRAN % (test code = 4434771306) 0.50 % LYMPH % (test code = 736-9) 30.5 % MONO % (test code = 5905-5) 7.5 % EOS % (test code = 713-8) 2.2 % BASO % (test code = 706-2) 0.9 % GRAN MAT x10^3(ANC) (test code = 1617205043) 5.75 10*3/uL 1.99-6.95 IMM GRAN x10^3 (test code = 6552202325) 0.05 10*3/uL 0.00-0.06 LYMPH x10^3 (test code = 731-0) 3.00 10*3/uL 1.09-3.23 MONO x10^3 (test code = 742-7) 0.74 10*3/uL 0.36-1.02 EOS x10^3 (test code = 711-2) 0.22 10*3/uL 0.06-0.53 BASO x10^3 (test code = 704-7) 0.09 10*3/uL 0.01-0.09 Lab Interpretation (test code = 67792-7) Abnormal [facility]. METABOLIC PANEL (57862)2020-09-08 23:50:00* Test Item Value Reference Range Interpretation Comme nts NA (test code = 3522742130) 139 mmol/L 135-145 K (test code = 0526367302) 4.1 mmol/L 3.5-5 CL (test code = 9895430517) 107 mmol/L 98-108 CO2 TOTAL (test code = 7989998145) 22 mmol/L 23-31 L AGAP (test code = 2068319024) 2-16 BUN (test code = 7802699227) 12 mg/dL 7-23 GLUCOSE (test code = 9579398158) 115 mg/dL 70-110 H CREATININE (test code = 8455712970) 0.54 mg/dL 0.6-1.25 L TOTAL BILI (test code = 1326085121) 0.3 mg/dL 0.1-1.1 CALCIUM (test code = 2263893328) 9.3 mg/dL 8.6-10.6 T PROTEIN (test code = 0363986574) 7.6 g/dL 6.3-8.2 ALBUMIN (test code = 2657687477) 4.3 g/dL 3.5-5 ALK PHOS (test code = 9008307953) 80 U/L 34-122 ALTv (test code = 1742-6) 21 U/L 5-50 AST(SGOT) (test code = 3468748609) 21 U/L 13-40 eGFR Calculation (Non-) (test code = 4719358092) mL/min/1.73m2 eGFR Calculation () (test code = 5102132524) mL/min/1.73m2 LAURIE (test code = LAURIE) Association [...] imaging tests). Lab Interpretation (test code = 59740-0) [facility] 23:50:00* Test Item Value Reference Range Interpretation Comme nts LIPASE (test code = 4798454787) 68 U/L 0-220 Lab Interpretation (test cod e = 81042-6) [facility] WITH [id number] 23:22:00* Test Item Value Reference Range Interpretation [...] 34.1 g/dL 31.2-35 RDW-SD (test code = 93566-7) 40.8 fL 38.5-51.6 RDW-CV (test code = 788-0) 12.5 % 12.1-15.4 PLT (test code = 777-3) See_Comment [Automated messa ge] The system which generated this result transmitted reference range: 150 - 328 10*3/?L. The reference range was not used to interpret this result as normal/abnormal. MPV (test code = 46740-4) 9.1 fL 9.8-13 L NRBC/100 WBC (test code = 7834654394) See_Comment [Automated me ssage] The system which generated this result transmitted reference range: 0.0 - 10.0 /100 WBCs. The reference range was not used to interpret this result as normal/abnormal. NRBC x10^3 (test code = 2015198289) <0.01 See_Comment [Automated messa ge] The system which generated this result transmitted reference range: 10*3/?L. The reference range was not used to interpret this result as normal/abnormal. GRAN MAT (NEUT) % (test code = 770-8) 59.0 % IMM GRAN % (test code = 3218700157) 0.60 % LYMPH % (test code = 736-9) 31.3 % MONO % (test code = 5905-5) 6.6 % EOS % (test code = 713-8) 1.9 % BASO % (test code = 706-2) 0.6 % GRAN MAT x10^3(ANC) (test code = 1491496118) 5.85 10*3/uL 1.99-6.95 IMM GRAN x10^3 (test code = 5610928830) 0.06 10*3/uL 0-0.06 LYMPH x10^3 (test code = 731-0) 3.10 10*3/uL 1.09-3.23 MONO x10^3 (test code = 742-7) 0.65 10*3/uL 0.36-1.02 EOS x10^3 (test code = 711-2) 0.19 10*3/uL 0.06-0.53 BASO x10^3 (test code = 704-7) 0.06 10*3/uL 0.01-0.09 Lab Interpretation (test code = 53677-4) [facility] W [id number] 17:21:17CT Abdomen and Pelvis with intravenous contrast. CLINICAL HISTORY: Abdominal infection including peritonitis. DOSE: Up-to-date CT equipment and radiation dose reduction techniques wereemployed. CTDIvol: 10.76 mGy. DLP: 553 mGy-cm. TECHNIQUE : Contiguous axial imaging from the level of the lung base sthrough the pubic symphysis were performed after the [...] diverticulosis of the sigmoid colon without any acutechanges.Normal appendix is visualized. Bladder and Reproductive Organs: Unremarkable, incompletely and unopacifieddistended urinary bladder, except for thickened pike which is likely dueto underdistention. Central zone prostatic calcifications noted. Bones: No acute findings. Bilateral L5 spondylolysis noted withoutspondylolisthesis. Soft tissues: Soft tissue abnormality in the right epigastric laparoscopicport site noted with probable 3 cm size subcutaneous hematoma andcongestion of the underl cecilia intra-abdominal fat. Small indirect type left inguinal hernia suspected. CONCLUSION:1. Changesof recent laparoscopic cholecystectomy. Soft tissue swellingwith congestion of the intra-abdominal fat and 3 cm size subcutaneoushematoma in the right epigastric laparoscopic port site. No free fluidinthe abdomen or in the pelvis.2. Hepatomegaly. [facility], [...] inthe abdomen or in the pelvis.2. Hepatomegaly.[facility]. METABOLIC PANEL (29062) 2020-09-06 16:39:00* Test Item Value Reference Range Interpretation Comme nts NA (test code = 5320315612) 138 mmol/L 135-145 K (test code = 6295658848) 4.2 mmol/L 3.5-5 CL (test code = 7986116699) 103 mmol/L 98-108 CO2 TOTAL (test code = 1726514024) 25 mmol/L 23-31 AGAP (test code = 4279751818) 2-16 BUN (test code = 8970200718) 17 mg/dL 7-23 GLUCOSE (test code = 9307590743) 124 mg/dL 70-110 H CREATININE (test code = 8944374045) 0.95 mg/dL 0.6-1.25 TOTAL BILI (test code = 7223275619) 0.4 mg/dL 0.1-1.1 CALCIUM (test code = 5038622775) 9.7 mg/dL 8.6-10.6 T PROTEIN (test code = 5740028699) 7.9 g/dL 6.3-8.2 ALBUMIN (test code = 1658639819) 4.5 g/dL 3.5-5 ALK PHOS (test code = 9879129600) 75 U/L 34-122 ALTv (test code = 1742-6) 28 U/L 5-50 AST(SGOT) (test code = 1452340824) 23 U/L 13-40 eGFR Calculation (Non-) (test code = 8829376330) mL/min/1.73m2 eGFR Calculation () (test code = 3808563326) mL/min/1.73m2 LAURIE (test code = LAURIE) Association [...] imaging tests). Lab Interpretation (test code = 81310-5) [facility] 16:39:00* Test Item Value Reference Range Interpretation Comme nts LIPASE (test code = 7597937306) 70 U/L 0-220 Lab Interpretation (test cod e = 57910-1) Normal [facility] CenterMAGNESIUM2020-11-18 16:39:00* Test Item Value Reference Range Interpretation Comme nts MAGNESIUM (test code = 1805179429) 1.9 mg/dL 1.7-2.4 Lab Interpretation (test cod e = 33134-6) Normal [facility] CenterLactic Acid Whole [id number] 16:38:00* Test Item Value Reference Range Interpretation Comme nts LACTIC ACID (test code = 5444287237) 1.51 mmol/L [facility]CB WITH [id number] 16:20:00* Test Item Value Reference Range Interpretation Comme nts WBC (test code = 6690-2) See_Comment [Automated [employer]] The system which generated this result transmitted reference range: 4.20 - 10.70 10*3/?L. The reference range was not used to interpret this result as normal/abnormal. RBC (test code = 789-8) See_Comment [Automated [employer]] The system which generated this result [...] 32.8 g/dL 31.2-35 RDW-SD (test code = 59476-9) 42.2 fL 38.5-51.6 RDW-CV (test code = 788-0) 12.6 % 12.1-15.4 PLT (test code = 777-3) See_Comment [Automated [employer]] The system which generated this result transmitted reference range: 150 - 328 10*3/?L. The reference range was not used to interpret this result as normal/abnormal. MPV (test code = 53443-9) 9.3 fL 9.8-13 L NRBC/100 WBC (test code = 3297900292) See_Comment [Automated me ssage] The system which generated this result transmitted reference range: 0.0 - 10.0 /100 WBCs. The reference range was not used to interpret this result as normal/abnormal. NRBC x10^3 (test code = 6962356111) <0.01 See_Comment [Automated messa ge] The system which generated this result transmitted reference range: 10*3/?L. The reference range was not used to interpret this result as normal/abnormal. GRAN MAT (NEUT) % (test code = 770-8) 64.9 % IMM GRAN % (test code = 6097964439) 0.50 % LYMPH % (test code = 736-9) 25.0 % MONO % (test code = 5905-5) 7.5 % EOS % (test code = 713-8) 1.3 % BASO % (test code = 706-2) 0.8 % GRAN MAT x10^3(ANC) (test code = 2476274113) 5.99 10*3/uL 1.99-6.95 IMM GRAN x10^3 (test code = 0371611786) 0.05 10*3/uL 0-0.06 LYMPH x10^3 (test code = 731-0) 2.31 10*3/uL 1.09-3.23 MONO x10^3 (test code = 742-7) 0.69 10*3/uL 0.36-1.02 EOS x10^3 (test code = 711-2) 0.12 10*3/uL 0.06-0.53 BASO x10^3 (test code = 704-7) 0.07 10*3/uL 0.01-0.09 Lab Interpretation (test code = 56713-4) Abnormal [facility]. METABOLIC PANEL (30208)2020-08-30 10:29:00* Test Item Value Reference Range Interpretation Comme nts NA (test code = 9981632443) 139 mmol/L 135-145 K (test code = 4515851849) 4.7 mmol/L 3.5-5 CL (test code = 5717651332) 105 mmol/L 98-108 CO2 TOTAL (test code = 5887489467) 24 mmol/L 23-31 AGAP (test code = 9378026974) 2-16 BUN (test code = 7851925677) 21 mg/dL 7-23 GLUCOSE (test code = 2109928755) 109 mg/dL 70-110 CREATININE (test code = 2759953733) 0.99 mg/dL 0.6-1.25 TOTAL BILI (test code = 2692078651) 0.4 mg/dL 0.1-1.1 CALCIUM (test code = 6484920367) 9.4 mg/dL 8.6-10.6 T PROTEIN (test code = 2781465469) 7.4 g/dL 6.3-8.2 ALBUMIN (test code = 8638804203) 4.2 g/dL 3.5-5 ALK PHOS (test code = 0713797705) 68 U/L 34-122 ALTv (test code = 1742-6) 33 U/L 5-50 AST(SGOT) (test code = 1288111957) 28 U/L 13-40 eGFR Calculation (Non-) (test code = 2853015758) mL/min/1.73m2 eGFR Calculation () (test code = 2104634672) mL/min/1.73m2 LAURIE (test code = LAURIE) Association [...] or urine or abnormalities in imaging tests). [facility] WITH [id number] 09:50:00* Test Item Value Reference Range Interpretation [...] 32.4 g/dL 31.2-35 RDW-SD (test code = 41457-6) 43.6 fL 38.5-51.6 RDW-CV (test code = 788-0) 13.0 % 12.1-15.4 PLT (test code = 777-3) See_Comment [Automated message] The system which generated this result transmitted reference range: 150 - 328 10*3/?L. The reference range was not used to interpret this result as normal/abnormal. MPV (test code = 05924-5) 10.0 fL 9.8-13 NRBC/100 WBC (test code = 7128813042) See_Comment [Automated message] The system which generated this result transmitted reference range: 0.0 - 10.0 /100 WBCs. The reference range was not used to interpret this result as normal/abnormal. NRBC x10^3 (test code = 0373871384) <0.01 See_Comment [Automated message] The system which generated this result transmitted reference range: 10*3/?L. The reference range was not used to interpret this result as normal/abnormal. GRAN MAT (NEUT) % (test code = 770-8) 80.1 % IMM GRAN % (test code = 0041138899) 0.50 % LYMPH % (test code = 736-9) 12.5 % MONO % (test code = 5905-5) 6.5 % EOS % (test code = 713-8) 0.1 % BASO % (test code = 706-2) 0.3 % GRAN MAT x10^3(ANC) (test code = 4726955478) 12.09 10*3/uL 1.99-6.95 H IMM GRAN x10^3 (test code = 4323780646) 0.08 10*3/uL 0-0.06 H LYMPH x10^3 (test code = 731-0) 1.89 10*3/uL 1.09-3.23 MONO x10^3 (test code = 742-7) 0.98 10*3/uL 0.36-1.02 EOS x10^3 (test code = 711-2) <0.03 0.06-0.53 L BASO x10^3 (test code = 704-7) 0.04 10*3/uL 0.01-0.09 Lab Interpretation (test code = 47063-5) [facility]normal [facility] (42654[facility] (ALB,T.PRO,BILI T,BU/BC,ALT,AST,ALK PHOS)2020-08-28 21:15:00* Test Item Value Reference Range Interpretation Comme nts TOTAL BILI (test code = 3762185912) 0.6 mg/dL 0.1-1.1 BILI UNCON (test code = 1726240870) 0.4 mg/dL 0.1-1.1 BILI CONJ (test code = 8068685858) 0.0 mg/dL 0-0.3 T PROTEIN (test code = 2470648783) 7.2 g/dL 6.3-8.2 ALBUMIN (test code = 4347401238) 3.9 g/dL 3.5-5 ALK PHOS (test code = 2063046358) 65 U/L 34-122 ALTv (test code = 1742-6) 20 U/L 5-50 AST(SGOT) (test code = 4632554900) 25 U/L 13-40 Lab Interpretation (test cod e = 22857-9) Normal [facility] ABDOMEN [id number] 18:22:30 Hepatomegaly with moderate hepatic steatosis. Cholelithiasis [...] sign which could be related to stone. [facility]XR [facility]ST 1 [id number] 14:32:06No acute cardiopulmonary abnormality. Preliminary Report Dictated [...] have reviewed this study andagree with theabove report.[facility] CenterBasi Metabolic Panel (NA, K, CL, CO2, GLUCOSE, BUN, CREATININE, CA) 2020-08-28 11:39:00* Test Item Value Reference Range Interpretation Comme nts NA (test code = 4588639822) 137 mmol/L 135-145 K (test code = 7208198748) 3.9 mmol/L 3.5-5 CL (test code = 9477592272) 104 mmol/L 98-108 CO2 TOTAL (test code = 0591189272) 28 mmol/L 23-31 AGAP (test code = 2019431003) 2-16 BUN (test code = 3242864767) 15 mg/dL 7-23 GLUCOSE (test code = 0409395163) 96 mg/dL 70-110 CREATININE (test code = 6272897442) 0.68 mg/dL 0.6-1.25 CALCIUM (test code = 7422447794) 9.2 mg/dL 8.6-10.6 eGFR Calculation (Non-) (test code = 5582402353) mL/min/1.73m2 eGFR Calculation () (test code = 6983445638) mL/min/1.73m2 LAURIE (test code = LAURIE) Association [...] or urine or abnormalities in imaging tests). [facility] ABDOMEN PELVIS W WO [id number] 19:39:221. ?Diffuse bladder wall thickening is likely [...] reviewed this study and agree with theabove report.[facility] CenterPOCT GLUCOSE (AUTOMATED) 2020-08-27 19:34:00* Test Item Value Reference Range Interpretation Comme nts POCT GLU (test code = 8034554358) 95 mg/dL 70-110 Lab Interpretation (test cod e = 26563-3) Normal [facility] CenterTROPONIN [id number] 19:12:00* Test Item Value Reference Range Interpretation Comme nts TROPONIN I (test code = 8434470241) <0.012 See_Comment [Automated message] The system which [...] biotin. ? Lab Interpretation (test code = 24958-5) Normal [facility]PO[facility]SE (AUT[facility]ATED)2020-08-27 14:42:00* Test Item Value Reference Range Interpretation Comme nts POCT GLU (test code = 3897611396) 99 mg/dL 70-110 Lab Interpretation (test cod e = 00370-8) Normal [facility] CenterTROPONIN [id number] 13:09:00* Test Item Value Reference Range Interpretation Comme [facility] TROPONIN I (test code = 8494475110) <0.012 See_Comment [Automated message] The system which [...] biotin. ? Lab Interpretation (test code = 67512-8) Normal [facility] CenterLIPID PANEL (15322)(TOTAL CHOLESTEROL, TRIGLYCERIDES, HDL)2020-08-27 08:31:00* Test Item Value Reference Range Interpretation Comme nts CHOL (test code = 1627155532) 208 mg/dL 120-200 H HDL (test code = 9862517133) 28 mg/dL >40 L HDLC RATIO (test code = 8926387203) See_Comment H [Automated [employer]] The system which generated this result transmitted reference range: <=5.0. The reference range was not used to interpret this result as normal/abnormal. TRIG (test code = 2882662992) 351 mg/dL 30-170 H LDL CHOL (test code = 90430-9) 110 mg/dL See_Comment [Automated [employer]] The system which generated this result transmitted reference range: <=160. The reference range was not used to interpret this result as normal/abnormal. VLDL (test code = 6052755682) 70 mg/dL 5-60 H Lab Interpretation (test code = 96537-6) Abnormal [facility] CenterTHYROID STIMULATING [id number] 08:00:00 * Test Item Value Reference Range Interpretation Comme nts TSH (test code = 1537004366) See_Comment L Biotin has been reported to cause a negative bias, interpret results relative to patient's use of biotin. [Automated message] The system which generated this result transmitted reference range: 0.45 - 4.70 mIU/L. The reference range was not used to interpret this result as normal/abnormal. Lab Interpretation (test code = 44999-6) [facility]normal [facility] CenterCOVID-19 (ID NOW RAPID TESTING)2020-08-27 07:03:00* Test Item Value Reference Range Interpretation Comme nts SARS-CoV-2 Rapid ID NOW (test code = 97408-2) Not Detected Not Detected LAURIE (test code = LAURIE) ID NOW COVID-19 As say is an isothermal nucleic acid amplification test intended for the qualitative detection of nucleic acid from SARS-CoV-2 viral RNA in nasopharyngeal (PRESIDENT [employer] CEO) specimens. It is used under Emergency Use [...] clinically indicated. Lab Interpretation (test code = 61444-6) Normal [facility] - DRUG SCREEN [id number] 06:58:00* Test Item Value Reference Range Interpretation Comme nts BENZO U (test code = 6358463169) Negative Negative HORACIO U (test code = 4464723823) Negative Negative AMPHET (test code = 9497976845) Negative Negative THC (test code = 1453939233) Negative Negative METHADONE (test code = 6318888295) Negative Negative Meth U (test code = 0768029146) Negative Negative OPIATES (test code = 8434943745) Negative Negative Cocaine Metabolite (test code = 3573999565) Negative Negative PROPOXY (test code = 5813230677) Negative Negative Tric U (test code = 1895966912) Negative Negative PCP (test code = 2702595662) Negative Negative OXYCOD (test code = 6991714700) Negative Negative LAURIE (test code = LAURIE) [...] legal testing). Lab Interpretation (test code = 52010-4) Normal [facility] CenterUrinalysis2020-11-08 06:51:00* Test Item Value Reference Range Interpretation Comme nts APPEARANCE (test code = 2100171913) Clear Clear COLOR (test code = 2442710950) Yellow Yellow PH (test code = 6692533739) 4.8-8.0 SP GRAVITY (test code = 0148733786) 1.003-1.030 GLU U QUAL (test code = 2521783565) Normal Normal BLOOD (test code = 2675321108) Negative Negative KETONES (test code = 0118485919) 20 mg/dL Negative A PROTEIN (test code = 2887-8) Negative Negative UROBILIN (test code = 1223019340) Normal Normal BILIRUBIN (test code = 5678998272) Negative Negative NITRITE (test code = 1576806370) Negative Negative LEUK KENNY (test code = 5967416319) Negative Negative RBC/HPF (test code = 3555465613) See_Comment [Automated [employer] ge] The system which generated this result transmitted reference range: 0 - 3 HPF. The reference range was not used to interpret this result as normal/abnormal. WBC/HPF (test code = 6952749152) See_Comment [Automated [employer] ge] The system which generated this result transmitted reference range: 0 - 5 HPF. The reference range was not used to interpret this result as normal/abnormal. BACTERIA (test code = 0911715538) Negative Negative MUCOUS (test code = 5966365516) Slight Negative LPF A Lab Interpretation (test code = 77280-1) Abnormal [facility] CenterTroponin [id number] 06:45:00* Test Item Value Reference Range Interpretation Comme nts TROPONIN I (test code = 6811410707) <0.012 See_Comment [Automated message] The system which [...] biotin. ? Lab Interpretation (test code = 43731-5) Normal [facility] CenterETHANOL2020-11-08 06:34:00* Test Item Value Reference Range Interpretation Comme nts ALCOHOL (test code = 2402577785) 14 mg/dL LAURIE (test code = LAURIE) <10 Cxdwytzl34-923 Toxic>100 Depression of [employer] C[facility] ASSISTANT>400 Fatalities Reported [facility] CenterBasic Metabolic Panel (NA, K, CL, CO2, GLUCOSE, BUN, CREATININE, CA)2020-08-27 06:33:00* Test Item Value Reference Range Interpretation Comme nts NA (test code = 9924763706) 137 mmol/L 135-145 K (test code = 0104187108) 3.6 mmol/L 3.5-5 CL (test code = 8247319427) 102 mmol/L 98-108 CO2 TOTAL (test code = 5857193494) 26 mmol/L 23-31 AGAP (test code = 7106439552) 2-16 BUN (test code = 8841592725) 13 mg/dL 7-23 GLUCOSE (test code = 5034652262) 119 mg/dL 70-110 H CREATININE (test code = 4417100685) 0.86 mg/dL 0.6-1.25 CALCIUM (test code = 2899936990) 9.8 mg/dL 8.6-10.6 eGFR Calculation (Non-) (test code = 1152170785) mL/min/1.73m2 eGFR Calculation () (test code = 5545675348) mL/min/1.73m2 LAURIE (test code = LAURIE) Association [...] imaging tests). Lab Interpretation (test code = 29764-5) Abnormal [facility] CenterHepatic Function Panel (ALB, T.PRO, BILI T, BU/BC, ALT, AST, ALK PHOS)2020-08-27 06:33:00* Test Item Value Reference Range Interpretation Comme nts TOTAL BILI (test code = 6402233178) 0.3 mg/dL 0.1-1.1 BILI UNCON (test code = 9310822182) 0.2 mg/dL 0.1-1.1 BILI CONJ (test code = 0362240863) 0.0 mg/dL 0-0.3 T PROTEIN (test code = 3995538198) 7.8 g/dL 6.3-8.2 ALBUMIN (test code = 0957484304) 4.5 g/dL 3.5-5 ALK PHOS (test code = 6412468131) 71 U/L 34-122 ALTv (test code = 1742-6) 26 U/L 5-50 AST(SGOT) (test code = 6469682816) 26 U/L 13-40 Lab Interpretation (test cod e = 90237-5) Normal [facility] CenterLipase [id number] 06:33:00* Test Item Value Reference Range Interpretation Comme [facility] LIPASE (test code = 5785082884) 77 U/L 0-220 Lab Interpretation (test cod e = 14184-5) Normal [facility] CenteraPTT2020-11-08 06:19:00* Test Item Value Reference Range Interpretation Comme [facility] APTT Patient (test code = 3173-2) See_Comment [Automated message] The system which generated this result transmitted reference range: 23 - 38 Seconds. The reference range was not used to interpret this result as normal/abnormal. LAURIE (test code = LAURIE) The [facility] patient population mean normal value for aPTT is 30 seconds. Lab Interpretation (test code = 88575-0) Normal [facility] CenterProthrombin Time (PT) / [id number] 06:17:00 * Test Item Value Reference Range Interpretation Comme [facility] PROTIME PATIENT (test code = 5964-2) See_Comment [Automated messa ge] The system which generated this result transmitted reference range: 12.0 - 14.7 Seconds. The reference range was not used to interpret this result as normal/abnormal. INR (test code = 6301-6) Normal INR <1.1; Warfarin Therapeutic range 2.0 to 3.0 or 2.5 to 3.5, depending upon the indications. Lab Interpretation (test code = 72236-1) Normal [facility] CenterCBC with [id number] 06:07:00* Test Item Value Reference Range Interpretation [...] 32.8 g/dL 31.2-35 RDW-SD (test code = 48055-9) 42.9 fL 38.5-51.6 RDW-CV (test code = 788-0) 12.7 % 12.1-15.4 PLT (test code = 777-3) See_Comment [Automated [employer] ge] The system which generated this result transmitted reference range: 150 - 328 10*3/?L. The reference range was not used to interpret this result as normal/abnormal. MPV (test code = 26447-6) 9.1 fL 9.8-13 L NRBC/100 WBC (test code = 8161449819) See_Comment [Automated [employer] ssage] The system which generated this result transmitted reference range: 0.0 - 10.0 /100 WBCs. The reference range was not used to interpret this result as normal/abnormal. NRBC x10^3 (test code = 8302523574) <0.01 See_Comment [Automated [employer] ge] The system which generated this result transmitted reference range: 10*3/?L. The reference range was not used to interpret this result as normal/abnormal. GRAN MAT (NEUT) % (test code = 770-8) 52.4 % IMM GRAN % (test code = 8156073570) 0.50 % LYMPH % (test code = 736-9) 37.8 % MONO % (test code = 5905-5) 6.2 % EOS % (test code = 713-8) 2.3 % BASO % (test code = 706-2) 0.8 % GRAN MAT x10^3(ANC) (test code = 6554632523) 4.33 10*3/uL 1.99-6.95 IMM GRAN x10^3 (test code = 0326509401) 0.04 10*3/uL 0-0.06 LYMPH x10^3 (test code = 731-0) 3.13 10*3/uL 1.09-3.23 MONO x10^3 (test code = 742-7) 0.51 10*3/uL 0.36-1.02 EOS x10^3 (test code = 711-2) 0.19 10*3/uL 0.06-0.53 BASO x10^3 (test code = 704-7) 0.07 10*3/uL 0.01-0.09 Lab Interpretation (test code = 66167-5) Abnormal [facility] [id number] 04:41:00* Test Item Value Reference Range Interpretation Comme nts TROPONIN I (test code = 2559308627) 0.000 ng/mL See_Comment [Automated message] The system [...] biotin. ? Lab Interpretation (test code = 11140-3) Normal [facility] / [facility] - DRUG SCREEN [id number] 03:46:00* Test Item Value Reference Range Interpretation Comme nts BENZO U (test code = 3829976166) Negative Negative HORACIO U (test code = 9495389185) Negative Negative AMPHET (test code = 5154041205) Negative Negative THC (test code = 0235345405) Negative Negative METHADONE (test code = 0084598086) Negative Negative Meth U (test code = 2069161080) Negative Negative OPIATES (test code = 1996407925) Presumptive Positive Negative A Cocaine Metabolite (test code = 8987302052) Negative Negative PROPOXY (test code = 8177591096) Negative Negative Tric U (test code = 4602051230) Negative Negative PCP (test code = 7244980196) Negative Negative OXYCOD (test code = 0562759510) Negative Negative LAURIE (test code = LAURIE) [...] legal testing). Lab Interpretation (test code = 29245-2) Abnormal [facility] CenterD-ALXOL3012-30-48 03:29:00* Test Item Value Reference Range Interpretation Comments D-DIMER (test code = 3104632372) <0.27 See_Comment [Automated message] The system which [...] a diagnosis. Lab Interpretation (test code = 61136-7) Normal [facility] CenterLIPASE2020-09-21 02:07:00* Test Item Value Reference Range Interpretation Comme nts LIPASE (test code = 8005269950) 58 U/L 0-220 Lab Interpretation (test cod e = 93725-3) Normal [facility] CenterXR CHEST 1 [id number] 01:44:02No acute cardiopulmonary abnormality. Preliminary Report Dictated by Resident: Max Jeter I, Barry Zavala MD., have reviewed this [...] reviewed this study and agree with theabove report.[facility] TROPONIN [id number] 01:40:00* Test Item Value Reference Range Interpretation Comme [facility] TROPONIN I (test code = 3071046658) 0.000 ng/mL See_Comment [Automated message] The system [...] biotin. ? Lab Interpretation (test code = 81306-3) Normal [facility] CenterPROTHROMBIN TIME / [id number] 01:39:00* Test Item Value Reference Range Interpretation Comme [facility] PROTIME PATIENT (test code = 5964-2) See_Comment [Automated [employer]] The system which generated this result transmitted reference range: 12.0 - 14.7 Seconds. The reference range was not used to interpret this result as normal/abnormal. INR (test code = 6301-6) Normal INR <1.1; Warfarin Therapeutic range 2.0 to 3.0 or 2.5 to 3.5, depending upon the indications. Lab Interpretation (test code = 74525-6) Normal [facility] CenterCOVID-19 (ID NOW RAPID TESTING)2020-07-10 01:36:00* Test Item Value Reference Range Interpretation Comme nts SARS-CoV-2 Rapid ID NOW (test code = 98365-4) Not Detected Not Detected LAURIE (test code = LAURIE) ID NOW COVID-19 As say is an isothermal nucleic acid amplification test intended for the qualitative detection of nucleic acid from SARS-CoV-2 viral RNA in nasopharyngeal (PRESIDENT [employer] CEO) specimens. It is used under Emergency Use [...] clinically indicated. Lab Interpretation (test code = 67840-2) Normal [facility] CenterCOM. METABOLIC PANEL (10964)2020-07-10 01:29:00* Test Item Value Reference Range Interpretation Comme nts NA (test code = 7134599048) 136 mmol/L 135-145 K (test code = 1036420987) 3.4 mmol/L 3.5-5 L CL (test code = 9950022141) 98 mmol/L 98-108 CO2 TOTAL (test code = 6750379799) 26 mmol/L 23-31 AGAP (test code = 5273507450) 2-16 BUN (test code = 7011771861) 16 mg/dL 7-23 GLUCOSE (test code = 4724042639) 165 mg/dL 70-110 H CREATININE (test code = 7401538049) 0.94 mg/dL 0.6-1.25 TOTAL BILI (test code = 0545354233) 0.4 mg/dL 0.1-1.1 CALCIUM (test code = 8867948486) 9.7 mg/dL 8.6-10.6 T PROTEIN (test code = 0112571720) 8.2 g/dL 6.3-8.2 ALBUMIN (test code = 2689199383) 4.4 g/dL 3.5-5 ALK PHOS (test code = 1674744930) 77 U/L 34-122 ALTv (test code = 1742-6) 31 U/L 5-50 AST(SGOT) (test code = 5539794119) 26 U/L 13-40 eGFR Calculation (Non-) (test code = 0916420451) mL/min/1.73m2 eGFR Calculation () (test code = 3741959974) mL/min/1.73m2 LAURIE (test code = LAURIE) Association [...] imaging tests). Lab Interpretation (test code = 08408-9) Abnormal [facility] WITH [id number] 01:11:00* Test Item Value Reference Range Interpretation [...] 34.0 g/dL 31.2-35 RDW-SD (test code = 41111-4) 42.6 fL 38.5-51.6 RDW-CV (test code = 788-0) 13.0 % 12.1-15.4 PLT (test code = 777-3) See_Comment [Automated messa ge] The system which generated this result transmitted reference range: 150 - 328 10*3/?L. The reference range was not used to interpret this result as normal/abnormal. MPV (test code = 98674-3) 9.5 fL 9.8-13 L NRBC/100 WBC (test code = 0374196720) See_Comment [Automated [employer] ssage] The system which generated this result transmitted reference range: 0.0 - 10.0 /100 WBCs. The reference range was not used to interpret this result as normal/abnormal. NRBC x10^3 (test code = 9984015787) <0.01 See_Comment [Automated messa ge] The system which generated this result transmitted reference range: 10*3/?L. The reference range was not used to interpret this result as normal/abnormal. GRAN MAT (NEUT) % (test code = 770-8) 65.5 % IMM GRAN % (test code = 2672109551) 0.70 % LYMPH % (test code = 736-9) 26.1 % MONO % (test code = 5905-5) 5.7 % EOS % (test code = 713-8) 1.2 % BASO % (test code = 706-2) 0.8 % GRAN MAT x10^3(ANC) (test code = 4428420751) 6.62 10*3/uL 1.99-6.95 IMM GRAN x10^3 (test code = 7458083289) 0.07 10*3/uL 0-0.06 H LYMPH x10^3 (test code = 731-0) 2.64 10*3/uL 1.09-3.23 MONO x10^3 (test code = 742-7) 0.58 10*3/uL 0.36-1.02 EOS x10^3 (test code = 711-2) 0.12 10*3/uL 0.06-0.53 BASO x10^3 (test code = 704-7) 0.08 10*3/uL 0.01-0.09 Lab Interpretation (test code = 53279-9) Abnormal [facility]
[2024-11-26] MEDS ORDERED: KETOROLAC 30 MG/ML INJ ONE (20:40)
[2024-11-26] MEDS ORDERED: dexAMETHasone 10 MG/ML VIAL ONE (20:40)
[2024-11-26] MEDS ORDERED: HYDROCODONE/APAP 7.5/325 MG TAB ONE (20:41)
--- NOTE | 2024-11-26 21:47 | RAD REPORT ---
Exam:Pelvis CLINICAL HISTORY: Pelvic pain FINDINGS: No fracture or dislocation seen No significant bone or joint abnormality noted
--- NOTE | 2024-11-26 21:48 | RAD REPORT ---
Exam:Hip Left 2 View HISTORY: Left hip pain FINDINGS: No fracture or dislocation seen If no significant bone or joint abnormality noted
--- NOTE | 2024-11-26 21:57 | EDPHYS ---
Physician Documentation [facility] – [place], [place] Name: Carrington Dumont Age: 49 yrs Sex: Male : 1975 Arrival Date: 11/26/2024 Time: 19:28 Bed IW3 Private MD: ED Physician Maximo Griffiths HPI: 11/26 20:35 This 49 yrs old Male presents to ER via Ambulatory with complaints of Leg Pain.cp 20:35 The patient presents with pain. The complaints affect the left buttock with pain cp radiating down back of left leg. Context: resulted from an unknown cause, the patient can partially bear weight, the patient is able to ambulate, with moderate difficulty. 20:35 Onset: The symptoms/episode began/occurred yesterday. cp Historical: - Allergies: 20:01 PENICILLINS; cm10 - PMHx: 20:01 Hypertension; coronary atherosclerosis; Hypothyroidism; cm10 - PSHx: 20:01 Cholecystectomy; Stented artery; cm10 - Immunization history:: Adult Immunizations up to date. - Infectious Disease History:: Denies. - Social history:: Smoking status: Patient denies any tobacco usage or history of. ROS: 20:40 MS/extremity: Positive for pain, of the left leg and left hip, Negative for injury or cp acute deformity, decreased range of motion, paresthesias, 20:40 Abdomen/GI: Negative for abdominal pain, nausea, vomiting, and diarrhea, cp 20:40 Back: Negative for pain at rest, pain with movement, Exam: 20:46 Constitutional: The patient appears in no acute distress, alert, awake, non-toxic, well cp developed, well nourished, uncomfortable, 20:46 Head/Face: Normocephalic, atraumatic. cp 20:46 Chest/axilla: Inspection: normal, 20:46 Cardiovascular: Rate: normal, Edema: is not appreciated, JVD: is not appreciated, 20:46 Respiratory: the patient does not display signs of respiratory distress, Respirations: normal, no use of accessory muscles, no retractions, labored breathing, is not present, Breath sounds: are clear throughout, no decreased breath sounds, no stridor, no wheezing, 20:46 Abdomen/GI: Inspection: abdomen appears normal, Palpation: abdomen is soft and non-tender, in all quadrants, 20:46 Back: vertebral tenderness, is not appreciated, 20:46 Musculoskeletal/extremity: Extremities: noted in the left buttock and left hip: pain, tenderness, ROM: limited passive range of motion due to pain, in the left leg, Perfusion: the extremity is normally perfused throughout, the left leg Sensation intact. 20:46 Neuro: Motor: moves all fours, strength is normal, Sensation: is normal, Gait: is steady, Vital Signs: 20:00 BP 147 / 82; Pulse 97; Resp 18; Temp 98.2; Pulse Ox 97% on R/A; Weight 108.86 kg; cm10 Height 5 ft. 8 in. ; Pain 10; 20:00 Body Mass Index 36.49 (108.86 kg, 172.72 cm) cm10 20:00 Pain Scale: Adult cm10 MDM: 20:34 Medical Screening Exam initiated cp 21:55 Data reviewed: vital signs, nurses notes, radiologic studies, plain films. cp 21:55 Differential diagnosis: sciatica, bulging disc, radiculopathy, spinal stenosis, dvt, cp hip fracture. I considered the following discharge prescriptions or medication management in the emergency department Medications were administered in the Emergency Department. See MAR. Counseling: I had a detailed discussion with the patient and/or guardian regarding the historical points, exam findings, and any diagnostic results supporting the discharge/admit diagnosis, radiology results, to return to the emergency department if symptoms worsen or persist or if there are any questions or concerns that arise at home. Response to treatment: the patient's symptoms have mildly improved after treatment, and as a result, I will discharge patient. 11/26 20:40 Order name: XRAY Pelvis cp 11/26 20:40 Order name: XRAY Hip LEFT 2 view cp Administered Medications: 20:46 Drug: Hydrocodone-Acetaminophen PO (7.5 mg-325 mg) 1 tabs PO once Route: PO; cm10 22:09 Follow up: Response: No adverse reaction br2 20:46 Drug: Dexamethasone IM 10 mg IM once Route: IM; Site: left gluteus; cm10 22:09 Follow up: Response: No adverse reaction br2 22:09 Follow up: Response: No adverse reaction br2 20:46 Drug: Ketorolac IM 30 mg IM once Route: IM; Site: right gluteus; cm10 21:30 Follow up: Response: No adverse reaction br2 Disposition: 23:52 Co-signature as Attending Physician, Maximo Griffiths MD I reviewed the patient's care rt provided by the Advanced Practice Provider and agree with the diagnosis and treatment plan. 11/27 20:51 Chart complete. cp Disposition Summary: 11/26/24 21:56 Discharge Ordered Notes: Location: Home cp Problem: new cp Symptoms: have improved cp Condition: Stable cp Diagnosis - Sciatica, left side cp Followup: cp - With: Private Physician - When: 2 - 3 days - Reason: Recheck today's complaints Discharge Instructions: - Discharge Summary Sheet cp - Sciatica cp Forms: - Medication Reconciliation Form cp - Antibiotic Education cp - Prescription Opioid Use cp - Patient Portal Instructions cp - Leadership Thank You Letter cp Prescriptions: - Diclofenac Sodium 75 mg Oral Tablet Sustained Release - take 1 tablet ORAL route 2 times per day; 30 tablet; Refills: 0, Product cp Selection Permitted - Medrol (Riley) 4 mg Oral Tablets, Dose Pack - take 1 tablet ORAL route as directed - follow package instructions; 1 packet; cp Refills: 0, Product Selection Permitted - methocarbamol 500 mg Oral tablet - take 2 tablets ORAL route 3 times per day; 60 tablet; Refills: 0, Product cp Selection Permitted Signatures: Dispatcher [employer] EDMS Marc Vega PA PA cp Maximo Griffiths MD MD rt Rosaura Nicole, RN RN cm10 Brenda Lutz RN br2 Corrections: (The following items were deleted from the chart) 11/26 20:41 20:40 Hip Left 2 View+RAD.RAD.BRZ ordered. EDWV EDMS 11/27 19:41 11/26 20:40 MS/extremity: Positive for pain, cp cp
--- NOTE | 2024-11-26 21:57 | ER ---
Nurse's Notes [facility] Name: Carrington Dumont Age: 49 yrs Sex: Male : 1975 Arrival Date: 11/26/2024 Time: 19:28 Bed IW3 Private MD: Diagnosis: Sciatica, left side Presentation: 11/26 20:00 Chief complaint: Patient states: Left hip pain that radiates down left leg onset cm10 yesterday. Coronavirus screen: Client denies travel out of the [place] in the last 14 days. Ebola Screen: Patient denies travel to an Ebola-affected area in the 21 days before illness onset. Initial Sepsis Screen: Does the patient meet any 2 criteria? HR > 90 bpm. No. Patient's initial sepsis screen is negative. Does the patient have a suspected source of infection? No. Patient's initial sepsis screen is negative. Risk Assessment: Do you want to hurt yourself or someone else? Patient reports no desire to harm self or others. Onset of symptoms was November 26, 2024. 20:00 Method Of Arrival: Ambulatory cm10 20:00 Acuity: DAYANNA 4 cm10 Triage Assessment: 20:01 General: Appears uncomfortable, Behavior is calm, cooperative. Pain: Complains of pain cm10 in left hip Pain radiates to left leg Pain currently is 10 out of 10 on a pain scale. Neuro: No deficits noted. Level of Consciousness is awake, alert, obeys commands, Oriented to person, place, time, situation, Appropriate for age. Respiratory: No deficits noted. Airway is patent Respiratory effort is even, unlabored, Respiratory pattern is regular, symmetrical. Musculoskeletal: Reports pain in left hip. Historical: - Allergies: 20:01 PENICILLINS; cm10 - PMHx: 20:01 Hypertension; coronary atherosclerosis; Hypothyroidism; cm10 - PSHx: 20:01 Cholecystectomy; Stented artery; cm10 - Immunization history:: Adult Immunizations up to date. - Infectious Disease History:: Denies. - Social history:: Smoking status: Patient denies any tobacco usage or history of. Assessment: 22:08 Reassessment: Patient and/or family updated on plan of care and expected duration. Pain br2 level reassessed. Patient is alert, oriented x 3, equal unlabored respirations, skin warm/dry/pink. Patient states feeling better. Vital Signs: 20:00 BP 147 / 82; Pulse 97; Resp 18; Temp 98.2; Pulse Ox 97% on R/A; Weight 108.86 kg; cm10 Height 5 ft. 8 in. ; Pain 10/10; 20:00 Body Mass Index 36.49 (108.86 kg, 172.72 cm) cm10 20:00 Pain Scale: Adult cm10 ED Course: 19:31 Patient arrived in ED. [id number] 20:01 Triage completed. cm10 20:01 Arm band placed on right wrist. Patient placed in waiting room. cm10 20:34 Marc Vega PA is PHCP. cp 20:34 Maximo Griffiths MD is Attending Physician. cp 21:15 XRAY Pelvis In Process Unspecified. EDMS 21:15 XRAY Hip LEFT 2 view In Process Unspecified. EDMS Administered Medications: 20:46 Drug: Hydrocodone-Acetaminophen PO (7.5 mg-325 mg) 1 tabs PO once Route: PO; cm10 22:09 Follow up: Response: No adverse reaction br2 20:46 Drug: Dexamethasone IM 10 mg IM once Route: IM; Site: left gluteus; cm10 22:09 Follow up: Response: No adverse reaction br2 22:09 Follow up: Response: No adverse reaction br2 20:46 Drug: Ketorolac IM 30 mg IM once Route: IM; Site: right gluteus; cm10 21:30 Follow up: Response: No adverse reaction br2 Outcome: 21:56 Discharge ordered by MD. cp 22:05 Discharged to home ambulatory, br2 22:05 Condition: stable 22:05 Discharge instructions given to Instructed on discharge instructions, follow up and referral plans. Demonstrated understanding of instructions, follow-up care, medications, Prescriptions given X 3, 22:26 Patient left the ED. me1 Signatures: Dispatcher [employer] EDMS Marc Vega PA PA cp Jeffries, Jennifer [email or web address] Rosaura Nicole RN RN cm10 Miryam Valdes RN RN me1 Brenda Lutz RN RN br2 Corrections: (The following items were deleted from the chart) 22:13 20:00 Chief complaint: Patient states: Left hip pain that radiates down left leg onset me1 yesterday. cm10
[2024-11-26 22:39] VITALS: BP 147/82; TEMP 98.2; O2SAT 97
== END 2024-11-26 22:26 | disposition home or self-care (01) ==
LOC: ER 19:28
DX: M54.32 Sciatica, left side (principal)
CPT/HCPCS: 72170; 73502; 96372; 99284; J1100

== ENCOUNTER 2024-12-02 19:34 | Emergency (ER) | payer OTHER ==
--- OUTSIDE RECORDS SUMMARY | 2024-12-02 19:42 | XMS REPORT | Continuity of Care Document ---
Author Name Unknown Address [address] [facility]. [address] [place] [address] [facility] Address [address] [facility] [address] [place] [address] Care Team Providers Care Operations Agent Name Role Phone PCP, PATIENT DOES NOT HAVE A Primary Care Physic bala Unavailable ELSA WHITE Attending Clinician Unavailable ELSA WHITE Attending Clinician Unavailable Elsa White NP Attending Clinician [phone] Doctor Unassigned, [place] Attending Clinician U BABS Cohen Attending Clinician Unavailable CHAPITO CONTRERAS Attending Clinician Unavailable CHAPITO CONTRERAS Attending Clinician Unavailable Nidia SOLANO Attending Clinician Unavailable Nidia SOLANO Attending Clinician Unavailable JOSE FRANCISCO WALTERS Attending Clinician Unavailable Jose Francisco Walters MD Attending Clinician [phone] LOREN TAM Attending Clinician Unavailable LOREN TAM Attending Clinician Unavailable Loren Tam DO Attending Clinician [phone] Patrick Garrett Attending Clinician [phone] PATRICK VERGARA Attending Clinician Unavailable SOFIA ESCOBAR Attending Clinician Unavailable SOFIA ESCOBAR Attending Clinician Unavailable MARIE MORALES Attending Clinician UnavailMarie Andrews DO Attending Clinician [phone] SAQIB CLARKE Attending Clinician Unavailable Saqib Clarke DO Attending Clinician [phone] BENJAMIN ASHFORD Attending Clinician Unavailable Benjamin Ashford MD Attending Clinician [phone] Geoff Cardona MD Attending Clinician [phone] GEOFF CARDONA Attending Clinician Unavailable Kiki Mathur MD Attending Clinician [phone] KIKI MATHUR Attending Clinician UnavailGricelda Sherman MD Attending Clinician [phone] MARIBELL CEDILLO Attending Clinician UnavailBABS Garza Admitting Clinician Unavailable JOSE FRANCISCO WALTERS Admitting Clinician Unavailable CHAPITO CONTRERAS Admitting Clinician Unavailable LOREN TAM Admitting Clinician Unavailable PATRICK VERGARA Admitting Clinician Unavailable Nidia SOLANO Admitting Clinician Unavailable MARIE MORALES Admitting Clinician UnavailGricelda Morales MD Admitting Clinician [phone] EMERGENCY ROOM, EMERGENCY Admitting Clinician Un available Payers Payer Name Policy Type Policy Number Effective Date Expirati on Date Source [facility] [id number] 2023 00:00:00 Problems Condition Name Condition Details Condition Category Status Onset Date Resolution Date Last Treatment Date Treating Clinician Comments Source Obesity (BMI 30-39.9) Obesity (BMI 30-39.9) Disease Active 720 00:00: 00 [facility] Cigarette nicotine dependence without complicati on Cigarette nicotine dependence without complicati on Disease Active 2019-10 00:00: 00 [facility] Cigarette nicotine dependence without complicati on Cigarette nicotine dependence without complicati on Disease Active 2019-10 00:00: 00 [facility] Atypical chest pain Atypical chest pain Disease Active 2019-10 00:00: 00 [facility] Essential hypertensi on Essential hypertensi on Disease Active 2019-10 00:00: 00 [facility] No known active problems No known active problems Disease [facility] Allergies, Adverse Reactions, Alerts Allergy Name Allergy Type Status Severity Reaction(s) Onset Date Inactive Date Treating Clinician Comments Source Penicill in Propensi ty to adverse reaction s Active Unknown - See comments 03-30 00:00: 00 [facility] PENICILL IN DRUG INGREDI Active Unknown-Cmnt 03-30 00:00: 00 [facility] NO KNOWN ALLERGIE S Drug Class Active [facility] Social History Social Habit Start Date Stop Date Quantity Comments Source History of tobacco use Cigarette Smoker [facility] History SDOH Alcohol Frequency [facility] History SDOH Alcohol [facility] SDOH Alcohol Binge [facility] Gender identity [facility] Alcoholic beverage intake 2024-11-13 00:00:00 2024-11-13 00:00:00 Current drinker of alcohol (finding) [facility] Alcohol intake 2024-02-04 00:00:00 2024-02-04 00:00:00 Current drinker of alcohol (finding) [facility] Exposure to SARS-CoV-2 (event) 2023-02-10 00:00:00 2023-02-20 18:06:00 Not sure [facility] Cigarettes smoked current (pack per day) - Reported 2021-05-08 00:00:00 2021-05-08 00:00:00 [facility] Alcohol Comment 2021-05-08 00:00:00 2021-05-08 00:00:00 6beers on the weekend [facility] Tobacco use and exposure 2021-05-08 00:00:00 2021-05-08 00:00:00 Smokeless tobacco non-user [facility] History of Social function 2020-08-29 00:00:00 2020-08-29 00:00:00 [facility] Sex assigned at 1975 00:00:00 1975 00:00:00 [facility] Smoking Status Start Date Stop Date Source Smokes tobacco daily 2021-05-08 00:00:00 [facility] Never smoker [facility] Unknown if ever smoked [facility] Medications Ordered Medication Name Filled Medication Name Start Date Stop Date Current Medication? Ordering Clinician Indication Dosage Frequency Signature (SIG) Comments Components Source amoxicillin 500 mg tablet 1-25 00:00: 00 11-24 05:59 :00 Yes [id number] 500mg Take 1 tablet by mouth 3 (three) times daily for 10 days. [facility] iopamidol (ISOVUE 370-500 mL) injection 85 mL 02-03 18:00: 00 02-03 18:00 :00 No [id number] 85mL 85 mL, Intravenou s, ONCE, 1 dose, On Fri02/04/24 at 1300, Routine [facility] morpHINE (2 mg/mL) injection 2 mg 02-03 17:45: 00 02-03 18:48 :00 No 2mg 2 mg, Slow IV Push, ONCE, 1 dose, On Fri02/04/24 at 1245, STAT [facility] ondansetron (ZOFRAN (PF)) injection 4 mg 02-03 16:30: 00 02-03 17:15 :00 No 4mg 4 mg, Slow IV Push, ONCE, 1 dose, On Fri02/04/24 at 1130, FAWN [facility] ketorolac (TORADOL) injection 15 mg 02-03 16:30: 00 02-03 17:16 :00 No 15mg 15 mg, Slow IV Push, ONCE, 1 dose, On Fri02/04/24 at 1130, FAWN [facility] sodium chloride (NS) injection 5 mL 02-03 15:28: 49 Yes 5mL 5 mL, Intravenou s, PRN, Starting on Fri02/04/24 at 1028, Until Discontinu ed, Routine, IV line flushing [facility] dicyclomine (BENTYL) injection 20 mg 12-27 09:15: 00 Yes 20mg 20 mg, Intramuscu lar, QID, First dose on Fri12/28/23 at 0415, Until Discontinu ed, Routine [facility] maalox:diph enhydrAMINE :lidocaine 2 % viscous 1:1:1 (FIRST-MOUT HWASH BLM) oral suspension 15 mL 12-27 08:30: 00 12-27 08:27 :00 No 15mL 15 mL, Oral, ONCE, 1 dose, On [place] 12/28/23 at 0330, Routine [facility] maalox:diph enhydrAMINE :lidocaine 2 % viscous 1:1:1 (FIRST-MOUT [facility]) oral suspension 15 mL 11-06 07:15: 00 11-06 07:38 :00 No 15mL 15 mL, Oral, ONCE, 1 dose, On Ale 11/06/23 at 0115, Routine [facility] famotidine (PEPCID (PF)) injection 20 mg 11-06 07:15: 00 11-06 07:38 :00 No 20mg 20 mg, Slow IV Push, ONCE, 1 dose, On Ale 11/06/23 at 0115, FAWN [facility] NaCl 0.9% (NS) bolus infusion 1,000 mL 11-06 07:15: 00 11-06 07:38 :00 No 1000mL at 999 mL/hr, 1,000 mL, IV Infusion, ONCE, 1 dose, On Ale 11/06/23 at 0115, STAT [facility] ondansetron (ZOFRAN (PF)) injection 4 mg 11-06 07:15: 00 11-06 06:19 :00 No 4mg 4 mg, Slow IV Push, ONCE, 1 dose, On [place] 11/06/23 at 0115, FAWN [facility] dicyclomine (BENTYL) injection 20 mg 11-06 07:00: 00 11-06 07:00 :00 No 20mg 20 mg, Intramuscu lar, ONCE, 1 dose, On [place] 11/06/23 at 0100, Routine [facility] dicyclomine 20 mg tablet 11-06 00:00: 00 Yes 20mg Take 1 tablet by mouth 4 (four) times daily. Indication s: abdominal pain [facility] famotidine (PEPCID) 40 mg tablet 11-06 00:00: 00 Yes [id number] 40mg Take 1 tablet by mouth daily. [facility] acetaminoph en (TYLENOL) tablet 650 mg 11-01 09:30: 00 11-01 09:30 :00 No 650mg 650 mg, Oral, ONCE, 1 dose, On 11/01/23 at 0330, FAWN [facility] iopamidol (ISOVUE 370-500 mL) injection 100 mL 11-01 09:30: 00 11-01 09:30 :00 No [id number] 100mL 100 mL, Intravenou s, ONCE, 1 dose, On 11/01/23 at 0330, Routine [facility] morpHINE (4 mg/mL) injection 4 mg 11-01 07:00: 00 11-01 06:56 :00 No 4mg 4 mg, Slow IV Push, ONCE, 1 dose, On 11/01/23 at 0100, STAT [facility] ketorolac (TORADOL) injection 30 mg 11-01 06:45: 00 11-01 06:00 :00 No 30mg 30 mg, Slow IV Push, ONCE, 1 dose, On 11/01/23 at 0045, FAWN [facility] NaCl 0.9% (NS) bolus infusion 1,000 mL 11-01 06:45: 00 11-01 07:59 :00 No 1000mL at 999 mL/hr, 1,000 mL, IV Piggyback, ONCE, 1 dose, On 11/01/23 at 0045, STAT [facility] ondansetron (ZOFRAN (PF)) injection 4 mg 11-01 06:00: 00 11-01 05:59 :00 No 4mg 4 mg, Slow IV Push, ONCE, 1 dose, On 11/01/23 at 0000, FAWN [facility] morpHINE (4 mg/mL) injection 4 mg 11-01 06:00: 00 11-01 06:00 :00 No 4mg 4 mg, Slow IV Push, ONCE, 1 dose, On 11/01/23 at 0000, STAT [facility] famotidine (PEPCID) 20 mg tablet 11-01 00:00: 00 Yes [id number] 20mg Take 1 tablet by mouth 2 (two) times daily. [facility] dicyclomine 20 mg tablet 11-01 00:00: 00 Yes [id number] 20mg Take 1 tablet by mouth 3 (three) times daily as needed for Abdominal pain. [facility] iopamidol (ISOVUE 370-500 mL) injection 100 mL 10-23 08:00: 00 10-23 08:00 :00 No [id number] 100mL 100 mL, Intravenou s, ONCE, 1 dose, On Ale 10/23/23 at 0200, Routine [facility] FENTanyl PF (SUBLIMAZE (PF)) injection 50 mcg 10-23 08:00: 00 10-23 07:01 :00 No 50ug 50 mcg, Slow IV Push, ONCE, 1 dose, On Ale 10/23/23 at 0200, Routine [facility] ketorolac (TORADOL) injection 30 mg 10-23 07:15: 00 10-23 06:08 :00 No 30mg 30 mg, Slow IV Push, ONCE, 1 dose, On [place] 10/23/23 at 0115, Routine [facility] ondansetron (ZOFRAN (PF)) injection 4 mg 10-23 06:15: 00 10-23 06:08 :00 No 4mg 4 mg, Slow IV Push, ONCE, 1 dose, On Ale 10/23/23 at 0015, FAWN [facility] ketorolac 10 mg tablet 10-23 00:00: 00 Yes [id number] 10mg Take 1 tablet by mouth every 6 (six) hours as needed for Pain (scale 7-10). [facility] iopamidol (ISOVUE 370-500 mL) injection 100 mL 2022-10- 07:15: 00 09-26 07:15 :00 No [id number] 100mL 100 mL, Intravenou s, ONCE, 1 dose, On Fri09/26/23 at 0115, Routine [facility] ketorolac (TORADOL) injection 30 mg 2022-10 07:00: 00 09-26 06:12 :00 No 30mg 30 mg, Slow IV Push, ONCE, 1 dose, On Fri09/26/23 at 0100, Routine [facility] NaCl 0.9% (NS) bolus infusion 1,000 mL 2022-10 06:00: 00 09-26 06:15 :00 No 1000mL at 999 mL/hr, 1,000 mL, IV Infusion, ONCE, 1 dose, On Fri09/26/23 at 0000, FAWN [facility] morpHINE (4 mg/mL) injection 4 mg 2022-10 05:30: 00 09-26 05:19 :00 No 4mg 4 mg, Slow IV Push, ONCE, 1 dose, On [place] 09/25/23 at 2330, STAT [facility] lactulose (CEPHULAC) solution 60 mL 2022-10 05:15: 00 09-26 05:13 :00 No 60mL 60 mL, Oral, ONCE, 1 dose, On [place] 09/25/23 at 2315, AFWN [facility] ondansetron (ZOFRAN (PF)) injection 4 mg 2022-10 05:15: 00 09-26 05:13 :00 No 4mg 4 mg, Slow IV Push, ONCE, 1 dose, On [place] 09/25/23 at 2315, FAWN [facility] SEMAGLUTIDE , WEIGHT LOSS, SC 2022-10 02:30: 30 Yes inject under the skin. [facility] iopamidol (ISOVUE 370-500 mL) injection 75 mL 2022-10 09:00: 00 08-24 09:00 :00 No [id number] 75mL 75 mL, Intravenou s, ONCE, 1 dose, On Fri08/24/23 at 0300, Routine [facility] ondansetron (ZOFRAN (PF)) injection 4 mg 2022-10 06:30: 00 08-24 08:15 :00 No 4mg 4 mg, Slow IV Push, ONCE, 1 dose, On Fri08/24/23 at 0130, FAWN [facility] morpHINE (4 mg/mL) injection 4 mg 2022-10 06:30: 00 08-24 08:14 :00 No 4mg 4 mg, Slow IV Push, ONCE, 1 dose, On Fri08/24/23 at 0130, STAT [facility] aspirin tablet 325 mg 2022-10 05:15: 00 08-24 05:18 :00 No 325mg 325 mg, Oral, ONCE, 1 dose, On Fri08/24/23 at 0015, STAT [facility] ketorolac (TORADOL) injection 30 mg 07-07 10:45: 00 07-07 09:53 :00 No 30mg 30 mg, Slow IV Push, ONCE, 1 dose, On Fri07/07/23 at 0545, Routine [facility] metoclopram glenroy HCl (REGLAN) injection 10 mg 07-07 09:45: 00 07-07 09:54 :00 No 10mg 10 mg, Slow IV Push, ONCE, 1 dose, On Fri07/07/23 at 0445, FAWN [facility] butalbital- acetaminoph en-caff 50-325-40 mg tablet 07-07 00:00: 00 Yes [id number] 1{tbl} Take 1 tablet by mouth every 6 (six) hours as needed (Headache) . [facility] metFORMIN (GLUCOPHAGE ) tablet 500 mg 05-26 13:00: 00 Yes 500mg 500 mg, Oral, BID MEALS, First dose on Fri05/26/23 at 0800, Until Discontinu ed, Routine [facility] ketorolac (TORADOL) injection 15 mg 05-26 03:00: 00 05-26 02:19 :00 No 15mg 15 mg, Slow IV Push, ONCE, 1 dose, [facility] 05/25/23 at 2200, [facility] ([facility]) 2 % ointment 0.5 Inch 05-25 23:30: 00 05-26 01:27 :00 No .5[in_u s] 0.5 Inch, Transderma l (Apply To Skin), ONCE, 1 dose, On 05/25/23 at 1830, [facility] maalox:diph enhydrAMINE :lidocaine 2 % viscous 1:1:1 (FIRST-MOUT [facility]) oral suspension 15 mL 05-25 23:30: 00 05-26 00:49 :00 No 15mL 15 mL, Oral (Swish & Swallow), ONCE, 1 dose, On 05/25/23 at 1830, Routine [facility] aspirin chewable tablet 324 mg 05-25 23:30: 00 05-25 22:24 :00 No 324mg 324 mg, Oral, ONCE, 1 dose, On 05/25/23 at 1830, Routine [facility] metFORMIN 500 mg tablet 05-25 00:00: 00 Yes [id number] 500mg Take 1 tablet by mouth 2 (two) times daily. [facility] naproxen (NAPROSYN) 500 mg tablet 05-25 00:00: 00 02-03 00:00 :00 No [id number] 500mg Take 1 tablet by mouth 2 (two) times daily with meals. [facility] cloNIDine (CATAPRES) tablet 0.2 mg 02-21 00:45: 00 02-21 01:50 :00 No .2mg 0.2 mg, Oral, ONCE, 1 dose, On [facility] 02/20/23 at 1945, [facility] ibuprofen (IBU) tablet 600 mg 02-20 23:30: 00 02-20 23:30 :00 No 600mg 600 mg, Oral, ONCE, 1 dose, On [place] 02/20/23 at 1830, FAWN [facility] ibuprofen 600 mg tablet 02-20 00:00: 00 02-03 00:00 :00 No [id number] 600mg Take 1 tablet by mouth every 6 (six) hours as needed for Pain (scale 4-6) for up to 30 doses. [facility] iopamidol (ISOVUE 370-500 mL) injection 100 mL 12-29 09:15: 00 12-29 09:15 :00 No [id number] 100mL 100 mL, Intravenou s, ONCE, 1 dose, On 12/29/22 at 0415, Routine [facility] ketorolac (TORADOL) injection 30 mg 12-29 09:00: 00 12-29 07:53 :00 No 30mg 30 mg, Slow IV Push, ONCE, 1 dose, On 12/29/22 at 0400, Routine [facility] ondansetron (ZOFRAN) 4 mg tablet 12-29 00:00: 00 Yes [id number] 4mg Take 1 tablet by mouth every 8 (eight) hours as needed for Nausea and Vomiting (N/V). [facility] ketorolac 10 mg tablet 12-29 00:00: 00 Yes [id number] 10mg Take 1 tablet by mouth every 6 (six) hours as needed for Pain (scale 7-10). [facility] maalox:diph enhydrAMINE :lidocaine 2 % viscous 1:1:1 (FIRST-MOUT [facility]ASH BLM) oral suspension 15 mL 11-21 08:45: 00 11-21 08:36 :00 No 15mL 15 mL, Oral, ONCE, 1 dose, On [place] 11/21/22 at 0245, Routine [facility] metoclopram glenroy HCl (REGLAN) tablet 10 mg 06-02 12:30: 00 Yes 10mg 10 mg, Oral, AC, First dose on 06/02/22 at 0730, Until Discontinu ed, Routine [facility] dexamethaso ne (DECADRON PHOSPHATE) injection 10 mg 06-02 06:00: 00 06-02 04:55 :00 No 10mg 10 mg, Oral, ONCE, 1 dose, On Fri06/02/22 at 0100, Routine [facility] butalbital- acetaminoph en-caff (ESGIC) 50-325-40 mg tablet 1 tablet 06-02 05:00: 00 06-02 04:56 :00 No 1{tbl} 1 tablet, Oral, ONCE, 1 dose, On Fri06/02/22 at 0000, [facility] diphenhydrA MINE (BENADRYL) tablet 50 mg 06-02 05:00: 00 06-02 04:54 :00 No 50mg 50 mg, Oral, ONCE, 1 dose, On Fri06/02/22 at 0000, [facility] levothyroxi ne (SYNTHROID) tablet 100 mcg 05-29 11:00: 00 Yes 100ug 100 mcg, Oral, QAM-0600, First dose on Fri05/29/22 at 0600, Until Discontinu ed, Routine [facility] levothyroxi ne 200 mcg tablet 05-28 13:18: 02 05-28 00:00 :00 No 300ug Take 300 mcg by mouth every morning. [facility] levothyroxi ne 300 mcg tablet 05-28 00:00: 00 08-27 05:59 :00 No [id number] 300ug Take 1 tablet by mouth every morning for 90 days. [facility] ketorolac (TORADOL) injection 15 mg 05-06 06:30: 00 05-06 05:30 :00 No 15mg 15 mg, Slow IV Push, ONCE, 1 dose, On Fri05/06/22 at 0130, [facility] iopamidol (ISOVUE 370-500 mL) injection 65 mL 05-06 06:00: 00 05-06 06:15 :00 No [id number] 65mL 65 mL, Intravenou s, ONCE, 1 dose, On Fri05/06/22 at 0115, Routine [facility] benzonatate 200 mg capsule 05-06 00:00: 00 Yes [id number] 200mg Take 1 capsule by mouth 3 (three) times daily as needed for Cough for up to 20 doses. [facility] ondansetron 4 mg disintegrat ing tablet 05-06 00:00: 00 Yes [id number] 4mg Take 1 tablet by mouth every 8 (eight) hours as needed for Nausea and Vomiting (N/V). [facility] ibuprofen 600 mg tablet 05-06 00:00: 00 02-20 00:00 :00 No [id number] 600mg Take 1 tablet by mouth every 6 (six) hours as needed for Pain (scale 4-6). [facility] molnupiravi r 200 mg capsule 05-06 00:00: 00 05-12 04:59 :00 No [id number] 800mg Take 4 capsules by mouth every 12 (twelve) hours for 5 days. [facility] magnesium sulfate in water 2 gram/50 mL (4 %) infusion 2 g 05-01 13:45: 00 05-01 14:06 :00 No 2g 2 g, IV Piggyback, Administer over 60 Minutes, ONCE, 1 dose, On Fri05/01/22 at 0845, Routine [facility] diphenhydrA MINE (BENADRYL) injection 50 mg 05-01 12:45: 00 05-01 12:43 :00 No 50mg 50 mg, Slow IV Push, ONCE, 1 dose, On Fri05/01/22 at 0745, STAT [facility] maalox:diph enhydrAMINE :lidocaine 2 % viscous 1:1:1 (FIRST-MOUT [facility] BLM) oral suspension 15 mL 02-08 07:15: 00 02-08 06:14 :00 No 15mL 15 mL, Oral, ONCE, 1 dose, On Fri02/08/22 at 0215, FAWN [facility] sucralfate 1 gram tablet 02-08 00:00: 00 Yes [id number] 1g Take 1 tablet by mouth before meals and at bedtime. [facility] ondansetron 4 mg disintegrat ing tablet 02-08 00:00: 00 Yes [id number] 4mg Take 1 tablet by mouth every 4 (four) hours as needed for Nausea and Vomiting (N/V). [facility] pantoprazol e 40 mg EC tablet 02-08 00:00: 00 Yes [id number] 40mg Take 1 tablet by mouth daily. [facility] maalox:diph enhydrAMINE :lidocaine 2 % viscous 1:1:1 ([facility]) oral suspension 15 mL 2020-10 02:15: 00 10-15 01:17 :00 No 15mL 15 mL, Oral, ONCE, 1 dose, On Fri10/14/21 at 2015, Routine [facility] iopamidol (ISOVUE 370-500 mL) injection 120 mL 2020-10 01:45: 00 10-15 00:37 :00 No [id number] 120mL 120 mL, Intravenou s, ONCE, 1 dose, On Fri10/14/21 at 1945, Routine [facility] famotidine (PEPCID (PF)) injection 20 mg 2020-10 00:30: 00 10-15 00:26 :00 No 20mg 20 mg, Slow IV Push, ONCE, 1 dose, On Fri10/14/21 at 1830, Routine [facility] enalapril 20 mg tablet 05-15 17:24: 35 Yes 25mg Take 25 mg by mouth daily. [facility] levothyroxi ne 200 mcg tablet 05-15 17:24: 35 Yes 300ug Take 300 mcg by mouth every morning. [facility] enalapril 20 mg tablet 05-15 12:24: 35 Yes 25mg Take 25 mg by mouth daily. [facility] levothyroxi ne 200 mcg tablet 05-15 12:24: 35 Yes 300ug Take 300 mcg by mouth every morning. [facility] FENTanyl (ACTIQ) lollipop 600 mcg 05-08 19:45: 00 05-08 18:59 :00 No [id number] 600ug 600 mcg, Buccal, ONCE, 1 dose, [facility] 05/08/21 at 1445, Routine [facility] sulfamethox azole-trime thoprim (BACTRIM DS) 800-160 mg per tablet 05-08 00:00: 00 05-16 04:59 :00 No [id number] 1{tbl} Take 1 tablet by mouth 2 (two) times daily for 7 days. [facility] HYDROcodone -acetaminop hen (NORCO) 10-325 mg tablet 1 tablet 05-06 09:45: 00 05-06 08:44 :00 No 1{tbl} 1 tablet, Oral, ONCE, 1 dose, [place] 05/06/21 at 0445, Routine [facility] sulfamethox azole-trime thoprim 800-160 mg per tablet 05-06 00:00: 00 Yes [id number] 1{tbl} Take 1 tablet by mouth every 12 (twelve) hours. [facility] HYDROcodone -acetaminop hen 5-325 mg tablet 05-06 00:00: 00 05-14 04:59 :00 No [id number] 1{tbl} Take 1 tablet by mouth every 4 (four) hours as needed for Pain (scale 7-10) for up to 7 days. Indication s: acute pain [facility] ketorolac (TORADOL) injection 30 mg 03-15 06:30: 00 03-15 05:44 :00 No 30mg 30 mg, Slow IV Push, ONCE, 1 dose, [facility] 03/15/21 at 0130, Routine
manufacturing team member approving Restricted medication : CHAPITO CONTRERAS [facility] enalapril 20 mg tablet 03-15 06:19: 47 Yes 25mg Take 25 mg by mouth daily. [facility] levothyroxi ne 200 mcg tablet 03-15 06:19: 47 Yes 300ug Take 300 mcg by mouth every morning. [facility] iopamidol (ISOVUE 370-500 mL) injection 120 mL 03-15 06:00: 00 03-15 06:00 :00 No [id number] 120mL 120 mL, Intravenou s, ONCE, 1 dose, [facility] 03/15/21 at 0100, Routine [facility] KCL (KLOR-CON M20) tablet 40 mEq 03-15 05:45: 00 03-15 05:01 :00 No [id number] 40 mEq, Oral, ONCE, 1 dose, [facility] 03/15/21 at 0045, Routine [facility] ondansetron (ZOFRAN (PF)) injection 4 mg 03-15 05:30: 00 03-15 04:32 :00 No 4mg 4 mg, Slow IV Push, ONCE, 1 dose, [place] 03/15/21 at 0030, FAWN [facility] FENTanyl PF (SUBLIMAZE (PF)) injection 75 mcg 03-15 05:30: 00 03-15 04:32 :00 No 75ug 75 mcg, Slow IV Push, ONCE, 1 dose, [place] 03/15/21 at 0030, Routine [facility] traMADoL (ULTRAM) 50 mg tablet 03-15 00:00: 00 Yes [id number] 50mg Take 1 tablet by mouth every 6 (six) hours as needed for Pain (scale 4-6) or Pain (scale 7-10). Indication s: acute pain [facility] methocarbam oL 500 mg tablet 03-15 00:00: 00 Yes [id number] 500mg Take 1 tablet by mouth every 6 (six) hours as needed (MUSCLE SPASM). [facility] ibuprofen 800 mg tablet 03-15 00:00: 00 02-20 00:00 :00 No [id number] 800mg Take 1 tablet by mouth every 8 (eight) hours as needed for Pain (scale 4-6). [facility] pantoprazol e (PROTONIX) 80 mg in NaCl 0.9% (NS) 20 mL syringe 2019-10 00:15: 00 09-08 23:17 :00 No 80mg 80 mg, IV Push, ONCE, 1 dose, Fri09/08/20 at 1815, 20 mL [facility] maalox:diph enhydrAMINE :lidocaine2 %viscous 1:1:1: suspension (COMPOUNDED ) 2019-10 00:15: 00 09-08 23:16 :00 No 15mL 15 mL, Oral, ONCE, 1 dose, Fri09/08/20 at 1815, Routine [facility] sucralfate 1 gram tablet 2019-10 00:00: 00 Yes [id number] 1g Take 1 tablet by mouth before meals and at bedtime. [facility] dicyclomine (BENTYL) 10 mg capsule 2019-10 00:00: 00 Yes [id number] 10mg Take 1 capsule by mouth every 8 (eight) hours as needed for Abdominal pain. [facility] [facility] on[facility] 4 mg disintegrat ing tablet 2019-10 00:00: 00 Yes [id number] 4mg Take 1 tablet by mouth every 8 (eight) hours as needed for Nausea and Vomiting (N/V). [facility] omeprazole 20 mg capsule 2019-10 00:00: 00 10-09 05:59 :00 No [id number] 20mg Take 1 capsule by mouth daily for 30 days. [facility] ketorolac (TORADOL) injection 30 mg 2019-10 20:15: 00 09-06 19:14 :00 No 30mg 30 mg, Slow IV Push, ONCE, 1 dose, Fri09/06/20 at 1415, FAWN
Fa culty member approving Restricted medication : Nidia SOLANO [facility] FENTanyl PF (SUBLIMAZE (PF)) injection 50 mcg 2019-10 18:45: 00 09-06 17:38 :00 No 50ug 50 mcg, Slow IV Push, ONCE, 1 dose, Fri09/06/20 at 1245, STAT [facility] iohexol (OMNIPAQUE 350 BULK-500 mL) injection 150 mL 2019-10 18:15: 00 09-06 17:00 :00 No 150mL 150 mL, Intravenou s, ONCE, 1 dose, Fri09/06/20 at 1215, Routine [facility] ondansetron (ZOFRAN (PF)) injection 4 mg 2019-10 17:30: 00 09-06 16:33 :00 No 4mg 4 mg, Slow IV Push, ONCE, 1 dose, Fri09/06/20 at 1130, FAWN [facility] morpHINE injection 4 mg 2019-10 17:30: 00 09-06 16:33 :00 No 4mg 4 mg, Slow IV Push, ONCE, 1 dose, Fri09/06/20 at 1130, STAT [facility] ibuprofen 600 mg tablet 2019-10 00:00: 00 03-14 00:00 :00 No [id number] 600mg Take 1 tablet by mouth every 6 (six) hours as needed for Pain (scale 4-6). [facility] Polyethylen e Glycol 3350 (MIRALAX) powder 17 g 2019-10 13:00: 00 08-30 11:55 :00 No 17g 17 g, Oral, ONCE, 1 dose, Fri08/30/20 at 0700, Routine [facility] aspirin 81 mg chewable tablet 2019-10 00:00: 00 09-30 05:59 :00 No [id number] 81mg Take 1 tablet by mouth daily for 30 days. [facility] levothyroxi ne 125 mcg tablet 2019-10 23:22: 41 08-29 00:00 :00 No 300ug Take 300 mcg by mouth every morning. [facility] lisinopriL 30 mg tablet 2019-10 23:22: 41 08-29 00:00 :00 No 25mg Take 25 mg by mouth daily. [facility] ondansetron (ZOFRAN (PF)) injection 4 mg 2019-10 23:15: 07 08-31 23:14 :07 No 4mg 4 mg, Slow IV Push, Q6HPRN, Starting Fri08/29/20 at 1715, Until Ale 08/31/20 at 1714, Routine, Nausea and Vomiting (N/V) [facility] morpHINE injection 2 mg 2019-10 22:49: 42 08-30 22:48 :42 No 2mg 2 mg, Slow IV Push, Q4HPRN, Starting Fri08/29/20 at 1649, Until Fri08/30/20 at 1648, Routine, Pain (scale 7-10) [facility] ondansetron (ZOFRAN (PF)) injection 4 mg 2019-10 18:03: 34 08-29 22:50 :21 No 4mg 4 mg, Slow IV Push, Q6HPRN, Starting Fri08/29/20 at 1203, Until Fri08/29/20 at 1650, Routine, Nausea and Vomiting (N/V) [facility] ibuprofen (IBU) tablet 600 mg 2019-10 18:00: 00 Yes 600mg 600 mg, Oral, Q6H, First dose on Fri08/29/20 at 1200, Until Discontinu ed, Routine [facility] acetaminoph en (TYLENOL) tablet 500 mg 2019-10 18:00: 00 Yes 500mg 500 mg, Oral, Q6H, First dose on Fri08/29/20 at 1200, Until Discontinu ed, Routine [facility] lactated ringers IV infusion 1,000 mL 2019-10 17:00: 00 Yes 1000mL at 75 mL/hr, 1,000 mL, IV Infusion, CONTINUOUS , Starting Fri08/29/20 at 1100, Until Discontinu ed, Routine, PACU [facility] FENTanyl PF (SUBLIMAZE (PF)) injection 25 mcg 2019-10 16:57: 53 08-29 17:58 :11 No 25ug 25 mcg, Slow IV Push, Q5MIN PRN, 4 doses, Starting Fri08/29/20 at 1057, Until Fri08/29/20 at 1158, Routine, Pain (scale 4-6), PACU [facility] ondansetron (ZOFRAN (PF)) injection 4 mg 2019-10 16:57: 53 08-29 17:13 :00 No 4mg 4 mg, Slow IV Push, PRN, 1 dose, Starting Fri08/29/20 at 1057, Until Fri08/29/20 at 1113, Routine, Nausea and Vomiting (N/V), PACU [facility] traMADoL (ULTRAM) tablet 100 mg 2019-10 16:11: 10 08-29 22:51 :09 No 100mg 100 mg, Oral, Q6HPRN, Starting Fri08/29/20 at 1011, Until Fri08/29/20 at 1651, Routine, Pain (scale 7-10) [facility] traMADoL (ULTRAM) tablet 50 mg 2019-10 16:10: 52 Yes 50mg 50 mg, Oral, Q6HPRN, Starting Fri08/29/20 at 1010, Until Discontinu ed, Routine, Pain (scale 4-6) [facility] acetaminoph en ADULT (OFIRMEV) injection 1,000 mg 2019-10 00:15: 00 08-29 16:11 :33 No 1000mg 1,000 mg, IV Infusion, Administer over 15 Minutes, Q6H ABX, 4 doses, First dose on Fri08/28/20 at 1815, Last dose on Fri08/29/20 at 1215, Routine
Indicatio n: Non-periop erative Patient
Approved by: Per Policy (NPO Status) [facility] metroNIDAZO LE in NaCl (iso-os) (FLAGYL I.V.) RTU IV infusion 500 mg 2019-10 00:15: 00 08-29 16:11 :42 No 500mg 500 mg, IV Infusion, Q8H ABX, First dose on Fri08/28/20 at 1815, Until Discontinu ed, 100 mL
Reas on for Anti-Infec tive: Empiric Therapy for Suspected Infection< br>Empiric Therapy Site: Abdominal< br>Duratio n of therapy: 7 days [facility] levoFLOXaci n in D5W (LEVAQUIN) 750 mg/150 mL Piggyback 750 mg 2019-10 00:15: 00 08-29 16:11 :42 No 750mg 750 mg, IV Piggyback, Administer over 90 Minutes, Q24H ABX, First dose on Fri08/28/20 at 1815, Until Discontinu ed, FAWN
Re ason for Anti-Infec tive: Empiric Therapy for Suspected Infection< br>Empiric Therapy Site: Abdominal< br>Duratio n of therapy: 72 hours [facility] levothyroxi ne 125 mcg tablet 2019-10 00:00: 00 09-29 05:59 :00 No [id number] 312.5ug Take 2.5 tablets by mouth every morning for 30 days. [facility] lisinopriL 30 mg tablet 2019-10 00:00: 00 09-29 05:59 :00 No [id number] 30mg Take 1 tablet by mouth daily for 30 days. [facility] pantoprazol e (PROTONIX) 40 mg EC tablet 2019-10 00:00: 00 09-29 05:59 :00 No [id number] 40mg Take 1 tablet by mouth daily for 30 days. [facility] ibuprofen 800 mg tablet 2019-10 00:00: 00 09-04 05:59 :00 No [id number] 800mg Take 1 tablet by mouth every 8 (eight) hours as needed for Pain (scale 4-6) for up to 5 days. [facility] sulfur hexafluorid e microsphr (LUMASON) injection 5 mL 2019-10 21:30: 00 08-28 16:58 :00 No 5mL 5 mL, Intravenou s, ONCE, 1 dose, Fri08/28/20 at 1530, Routine
manufacturing team member approving Restricted medication : DARIAN DAVENPORT [facility] morpHINE injection 4 mg 2019-10 20:09: 08 08-29 16:11 :42 No 4mg 4 mg, Slow IV Push, Q4HPRN, Starting Fri08/28/20 at 1409, Until Fri08/29/20 at 1011, Routine, Pain (scale 7-10) [facility] morpHINE injection 2 mg 2019-10 18:15: 00 08-28 17:20 :00 No 2mg 2 mg, Slow IV Push, ONCE, 1 dose, Fri08/28/20 at 1215, Routine [facility] levothyroxi ne (SYNTHROID) tablet 200 mcg 2019-10 12:00: 00 Yes 200ug 200 mcg, Oral, QAM-0600, First dose (after last modificati on) on Fri08/28/20 at 0600, Until Discontinu ed, Routine [facility] enoxaparin (LOVENOX) injection 40 mg 2019-10 23:00: 00 Yes 40mg 40 mg, Subcutaneo us, DAILY, First dose on Fri08/27/20 at 1700, Until Discontinu ed, Routine [facility] ketorolac (TORADOL) injection 30 mg 2019-10 15:45: 00 08-27 14:53 :00 No 30mg 30 mg, Slow IV Push, ONCE, 1 dose, [place] 08/27/20 at 0945, Routine
manufacturing team member approving Restricted medication : DOMINGO ANNE [facility] lisinopriL (PRINIVIL,Z ESTRIL) tablet 20 mg 2019-10 15:00: 00 Yes 20mg 20 mg, Oral, DAILY, First dose on 08/27/20 at 0900, Until Discontinu ed, Routine [facility] pantoprazol e (PROTONIX) EC tablet 40 mg 2019-10 15:00: 00 Yes 40mg 40 mg, Oral, DAILY, First dose on 08/27/20 at 0900, Until Discontinu ed, Routine [facility] aspirin chewable tablet 81 mg 2019-10 15:00: 00 Yes 81mg 81 mg, Oral, DAILY, First dose on 08/27/20 at 0900, Until Discontinu ed, Routine [facility] levothyroxi ne (SYNTHROID) tablet 300 mcg 2019-10 12:00: 00 08-27 14:38 :59 No 300ug 300 mcg, Oral, QAM-0600, First dose on 08/27/20 at 0600, Until Discontinu ed, Routine [facility] nicotine (NICODERM) 21 mg/24 hr patch 1 Patch 2019-10 08:30: 00 Yes 1{patch } 1 Patch, Topical, Administer over 24 Hours, Q24H, First dose on 08/27/20 at 0230, Until Discontinu ed, Routine [facility] acetaminoph en (TYLENOL) tablet 975 mg 2019-10 08:15: 00 08-27 07:56 :00 No 975mg 975 mg, Oral, ONCE, 1 dose, 08/27/20 at 0215, FAWN [facility] iohexol (OMNIPAQUE 350 BULK-100 mL) injection 120 mL 2019-10 07:45: 00 08-27 07:34 :00 No 120mL 120 mL, Intravenou s, ONCE, 1 dose, 08/27/20 at 0145, Routine [facility] traMADoL (ULTRAM) tablet 50 mg 2019-10 07:16: 43 08-29 07:15 :43 No 50mg 50 mg, Oral, Q8HPRN, Starting Fri08/27/20 at 0116, Until Fri08/29/20 at 0115, Routine, Pain (scale 4-6) [facility] acetaminoph en (TYLENOL) tablet 650 mg 2019-10 07:16: 41 08-28 23:11 :03 No 650mg 650 mg, Oral, Q6HPRN, Starting Fri08/27/20 at 0116, Until Fri08/28/20 at 1711, Routine, Pain (scale 1-3) [facility] morpHINE injection 2 mg 2019-10 07:14: 54 08-28 20:09 :18 No 2mg 2 mg, Slow IV Push, Q4HPRN, Starting 08/27/20 at 0114, Until Fri08/28/20 at 1409, Routine, Pain (scale 7-10) [facility] nitroglycer in (NITROSTAT) sublingual tablet 0.4 mg 2019-10 07:03: 30 Yes .4mg 0.4 mg, Sublingual , Q5MIN PRN, Starting [place] 08/27/20 at 0103, Until Discontinu ed, Routine, Chest pain [facility] alum-mag hydroxide-s imeth (MAALOX PLUS / MAG-AL PLUS) 200-200-20 mg/5 mL suspension 30 mL 2019-10 07:02: 48 Yes 30mL 30 mL, Oral, Q6HPRN, Starting [place] 08/27/20 at 0102, Until Discontinu ed, Routine, Indigestio n [facility] aspirin tablet 325 mg 2019-10 07:00: 00 08-27 06:16 :00 No 325mg 325 mg, Oral, ONCE, 1 dose, [place] 08/27/20 at 0100, STAT [facility] nitroglycer in (NITROSTAT) sublingual tablet 0.4 mg 2019-10 07:00: 00 08-27 06:16 :00 No .4mg 0.4 mg, Sublingual , ONCE, 1 dose, [place] 08/27/20 at 0100, FAWN [facility] aspirin chewable tablet 324 mg 07-10 14:00: 00 Yes 324mg 324 mg, Oral, DAILY, First dose on Fri07/10/20 at 0900, Until Discontinu ed, Routine [facility] iohexol (OMNIPAQUE 350 BULK-100 mL) injection 120 mL 07-10 05:15: 00 07-10 05:08 :00 No 120mL 120 mL, Intravenou s, ONCE, 1 dose, [facility] 07/10/20 at 0015, Routine [facility] codeine-gua ifenesin (ROBITUSSIN AC) 10-100 mg/5 mL solution 10 mL 07-10 04:30: 00 07-10 03:23 :00 No 10mL 10 mL, Oral, ONCE, 1 dose, [place] 07/09/20 at 2330, FAWN [facility] LORazepam (ATIVAN) injection 1 mg 07-10 03:45: 00 07-10 03:14 :00 No 1mg 1 mg, Slow IV Push, ONCE, 1 dose, 07/09/20 at 2245, STAT [facility] morpHINE injection 4 mg 07-10 03:30: 00 07-10 03:16 :00 No 4mg 4 mg, Slow IV Push, ONCE, 1 dose, 07/09/20 at 2230, STAT [facility] pantoprazol e (PROTONIX) 40 mg in NaCl 0.9% (NS) 100 mL MINI-BAG 07-10 02:30: 00 07-10 01:48 :00 No 40mg 40 mg, IV Piggyback, ONCE, 1 dose, 07/09/20 at 2130, 100 mL [facility] ondansetron (ZOFRAN (PF)) injection 4 mg 07-10 02:00: 00 07-10 01:03 :00 No 4mg 4 mg, Slow IV Push, ONCE, 1 dose, 07/09/20 at 2100, FAWN [facility] morpHINE injection 4 mg 07-10 02:00: 00 07-10 01:03 :00 No 4mg 4 mg, Slow IV Push, ONCE, 1 dose, 07/09/20 at 2100, STAT [facility] nitroglycer in (NITROSTAT) sublingual tablet 0.4 mg 07-10 02:00: 00 07-10 01:02 :00 No .4mg 0.4 mg, Sublingual , ONCE, 1 dose, [facility]09[facility]20 [facility] 2100[facility] mg EC tablet 07-10 00:00: 00 08-29 00:00 :00 No [id number] 40mg Take 1 tablet by mouth daily. [facility] dicyclomine 20 mg tablet 07-10 00:00: 08-29 00:00 :00 No [id number] 20mg Take 1 tablet by mouth every 6 (six) hours as needed for Abdominal pain. [facility] benzonatate 200 mg capsule 921 00:00: 00 08-29 00:00 :00 No [id number] 200mg Take 1 capsule by mouth 3 (three) times daily as needed for Cough. [facility] ibuprofen 800 mg tablet 2018-10 029 00:00: 00 08-29 00:00 :00 No [id number] 800mg Take 1 tablet by mouth every 8 (eight) hours as needed for Pain (scale 4-6). [facility] cyclobenzap rine 5 mg tablet 03-30 00:00: 00 08-29 00:00 :00 No [id number] 5mg Take 1 tablet by mouth 3 (three) times daily as needed for Muscle Spasms. [facility] LORazepam (ATIVAN) 0.5 mg tablet 06-14 00:00: 00 08-29 00:00 :00 No .5mg Take 1 tablet by mouth 2 (two) times daily as needed for Anxiety. [facility] levothyroxi ne 125 mcg tablet 05-11 10:32: 30 Yes 125ug Take 125 mcg by mouth every morning. [facility] Vital Signs Vital Name Observation Time Observation Value Comments [facility] Systolic blood pressure 2024-11-14 02:39:00 156 mm[Hg] [facility] Diastolic blood pressure 2024-11-14 02:39:00 88 mm[Hg] [facility] Heart rate 2024-11-14 02:39:00 88 /min [facility] Body temperature 2024-11-14 02:39:00 37.11 Nano [facility] Respiratory rate 2024-11-14 02:39:00 16 /min [facility] Body height 2024-11-14 02:39:00 172.7 cm [facility] Body weight 2024-11-14 02:39:00 111.131 kg [facility] BMI 2024-11-14 02:39:00 37.25 kg/m2 [facility] Oxygen saturation in Arterial blood by Pulse oximetry 2024-11-14 02:39:00 98 /min [facility] Systolic blood pressure 2024-02-04 18:48:00 142 mm[Hg] [facility] Diastolic blood pressure 2024-02-04 18:48:00 97 mm[Hg] [facility] Heart rate 2024-02-04 18:48:00 84 /min [facility] Respiratory rate 2024-02-04 18:48:00 16 /min [facility] Oxygen saturation in Arterial blood by Pulse oximetry 2024-02-04 18:48:00 97 /min [facility] Body temperature 2024-02-04 15:46:00 36.67 Nano [facility] Body height 2024-02-04 15:46:00 172.7 cm [facility] Body weight 2024-02-04 15:46:00 111.131 kg [facility] BMI 2024-02-04 15:46:00 37.25 kg/m2 [facility] Heart rate 2023-12-28 09:23:00 84 /min [facility] Respiratory rate 2023-12-28 09:23:00 16 /min [facility] Oxygen saturation in Arterial blood by Pulse oximetry 2023-12-28 09:23:00 96 /min [facility] Systolic blood pressure 2023-12-28 09:00:00 131 mm[Hg] [facility] Diastolic blood pressure 2023-12-28 09:00:00 81 mm[Hg] [facility] Body temperature 2023-12-28 08:13:00 37 Nano [facility] Body height 2023-12-28 08:13:00 172.7 cm [facility] Body weight 2023-12-28 08:13:00 110.632 kg [facility] BMI 2023-12-28 08:13:00 37.08 kg/m2 [facility] Systolic blood pressure 2023-11-06 08:00:00 117 mm[Hg] [facility] Diastolic blood pressure 2023-11-06 08:00:00 75 mm[Hg] [facility] Heart rate 2023-11-06 08:00:00 80 /min [facility] Body temperature 2023-11-06 08:00:00 37 Nano [facility] Respiratory rate 2023-11-06 08:00:00 18 /min [facility] Oxygen saturation in Arterial blood by Pulse oximetry 2023-11-06 08:00:00 97 /min [facility] Body height 2023-11-06 05:50:00 172.7 cm [facility] Body weight 2023-11-06 05:50:00 113.309 kg [facility] BMI 2023-11-06 05:50:00 37.98 kg/m2 [facility] Systolic blood pressure 2023-11-01 10:00:00 142 mm[Hg] [facility] Diastolic blood pressure 2023-11-01 10:00:00 81 mm[Hg] [facility] Heart rate 2023-11-01 10:00:00 79 /min [facility] Body temperature 2023-11-01 10:00:00 37.17 Nano [facility] Respiratory rate 2023-11-01 10:00:00 16 /min [facility] Oxygen saturation in Arterial blood by Pulse oximetry 2023-11-01 10:00:00 94 /min [facility] Body height 2023-11-01 05:37:00 172.7 cm [facility] Body weight 2023-11-01 05:37:00 111.131 kg [facility] BMI 2023-11-01 05:37:00 37.25 kg/m2 [facility] Systolic blood pressure 2023-10-23 08:00:00 140 mm[Hg] [facility] Diastolic blood pressure 2023-10-23 08:00:00 88 mm[Hg] [facility] Heart rate 2023-10-23 08:00:00 89 /min [facility] Oxygen saturation in Arterial blood by Pulse oximetry 2023-10-23 08:00:00 94 /min [facility] Respiratory rate 2023-10-23 05:53:00 16 /min [facility] Body temperature 2023-10-23 05:45:00 36.72 Nano [facility] Body height 2023-10-23 05:45:00 172.7 cm [facility] Body weight 2023-10-23 05:45:00 113.399 kg [facility] BMI 2023-10-23 05:45:00 38.01 kg/m2 [facility] Systolic blood pressure 2023-09-26 08:00:00 159 mm[Hg] [facility] Diastolic blood pressure 2023-09-26 08:00:00 80 mm[Hg] [facility] Heart rate 2023-09-26 08:00:00 75 /min [facility] Respiratory rate 2023-09-26 08:00:00 20 /min [facility] Oxygen saturation in Arterial blood by Pulse oximetry 2023-09-26 08:00:00 94 /min [facility] Body temperature 2023-09-26 05:02:00 36.72 Nano [facility] Systolic blood pressure 2023-08-24 08:14:00 140 mm[Hg] [facility] Diastolic blood pressure 2023-08-24 08:14:00 73 mm[Hg] [facility] Heart rate 2023-08-24 08:14:00 75 /min [facility] Body temperature 2023-08-24 08:14:00 36.67 Nano [facility] Respiratory rate 2023-08-24 08:14:00 18 /min [facility] Oxygen saturation in Arterial blood by Pulse oximetry 2023-08-24 08:14:00 96 /min [facility] Body height 2023-08-24 03:41:00 172.7 cm [facility] Body weight 2023-08-24 03:41:00 113.399 kg [facility] BMI 2023-08-24 03:41:00 38.01 kg/m2 [facility] Systolic blood pressure 2023-07-07 10:53:00 140 mm[Hg] [facility] Diastolic blood pressure 2023-07-07 10:53:00 83 mm[Hg] [facility] Heart rate 2023-07-07 10:53:00 75 /min [facility] Respiratory rate 2023-07-07 10:53:00 16 /min [facility] Oxygen saturation in Arterial blood by Pulse oximetry 2023-07-07 10:53:00 97 /min [facility] Body temperature 2023-07-07 08:57:00 36.44 Nano [facility] Body height 2023-07-07 08:57:00 172.7 cm [facility] Body weight 2023-07-07 08:57:00 113.399 kg [facility] BMI 2023-07-07 08:57:00 38.01 kg/m2 [facility] Systolic blood pressure 2023-05-26 03:30:00 140 mm[Hg] [facility] Diastolic blood pressure 2023-05-26 03:30:00 78 mm[Hg] [facility] Heart rate 2023-05-26 03:30:00 80 /min [facility] Respiratory rate 2023-05-26 03:30:00 23 /min [facility] Oxygen saturation in Arterial blood by Pulse oximetry 2023-05-26 03:30:00 94 /min [facility] Body temperature 2023-05-26 03:00:00 36.78 Nano [facility] Body weight 2023-05-25 22:19:00 121.564 kg [facility] BMI 2023-05-25 22:19:00 40.75 kg/m2 [facility] Systolic blood pressure 2023-02-21 01:51:00 123 mm[Hg] [facility] Diastolic blood pressure 2023-02-21 01:51:00 74 mm[Hg] [facility] Heart rate 2023-02-20 23:03:00 95 /min [facility] Body temperature 2023-02-20 23:03:00 38.28 Nano [facility] Respiratory rate 2023-02-20 23:03:00 18 /min [facility] Body height 2023-02-20 23:03:00 172.7 cm [facility] Body weight 2023-02-20 23:03:00 121.564 kg [facility] BMI 2023-02-20 23:03:00 40.75 kg/m2 [facility] Oxygen saturation in Arterial blood by Pulse oximetry 2023-02-20 23:03:00 97 /min [facility] Systolic blood pressure 2022-12-29 10:00:00 142 mm[Hg] [facility] Diastolic blood pressure 2022-12-29 10:00:00 78 mm[Hg] [facility] Heart rate 2022-12-29 10:00:00 71 /min [facility] Oxygen saturation in Arterial blood by Pulse oximetry 2022-12-29 09:57:00 96 /min [facility] Body temperature 2022-12-29 06:35:00 36.89 Nano [facility] Respiratory rate 2022-12-29 06:35:00 20 /min [facility] Body height 2022-12-29 06:35:00 172.7 cm [facility] Body weight 2022-12-29 06:35:00 121.745 kg [facility] BMI 2022-12-29 06:35:00 40.81 kg/m2 [facility] Systolic blood pressure 2022-11-21 08:14:00 162 mm[Hg] [facility] Diastolic blood pressure 2022-11-21 08:14:00 101 mm[Hg] [facility] Heart rate 2022-11-21 08:09:00 92 /min [facility] Body temperature 2022-11-21 08:09:00 37.11 Nano [facility] Respiratory rate 2022-11-21 08:09:00 16 /min [facility] Body height 2022-11-21 08:09:00 172.7 cm [facility] Body weight 2022-11-21 08:09:00 115.667 kg [facility] BMI 2022-11-21 08:09:00 38.77 kg/m2 [facility] Oxygen saturation in Arterial blood by Pulse oximetry 2022-11-21 08:09:00 97 /min [facility] Systolic blood pressure 2022-10-29 07:34:00 167 mm[Hg] [facility] Diastolic blood pressure 2022-10-29 07:34:00 97 mm[Hg] [facility] Heart rate 2022-10-29 07:34:00 93 /min [facility] Body temperature 2022-10-29 07:34:00 37.39 Nano [facility] Respiratory rate 2022-10-29 07:34:00 20 /min [facility] Body height 2022-10-29 07:34:00 172.7 cm [facility] Body weight 2022-10-29 07:34:00 113.399 kg [facility] BMI 2022-10-29 07:34:00 38.01 kg/m2 [facility] Oxygen saturation in Arterial blood by Pulse oximetry 2022-10-29 07:34:00 97 /min [facility] Systolic blood pressure 2022-06-02 05:00:00 165 mm[Hg] [facility] Diastolic blood pressure 2022-06-02 05:00:00 119 mm[Hg] [facility] Heart rate 2022-06-02 05:00:00 74 /min [facility] Respiratory rate 2022-06-02 05:00:00 23 /min [facility] Oxygen saturation in Arterial blood by Pulse oximetry 2022-06-02 05:00:00 95 /min [facility] Body temperature 2022-06-02 04:41:00 36.67 Nano [facility] Systolic blood pressure 2022-05-28 18:36:21 147 mm[Hg] [facility] Diastolic blood pressure 2022-05-28 18:36:21 97 mm[Hg] [facility] Heart rate 2022-05-28 18:36:21 62 /min [facility] Respiratory rate 2022-05-28 18:36:21 18 /min [facility] Oxygen saturation in Arterial blood by Pulse oximetry 2022-05-28 18:36:21 96 /min [facility] Body temperature 2022-05-28 15:06:00 37.22 Nano [facility] Body height 2022-05-28 15:06:00 172.7 cm [facility] Body weight 2022-05-28 15:06:00 124.739 kg [facility] BMI 2022-05-28 15:06:00 41.81 kg/m2 [facility] Systolic blood pressure 2022-05-06 06:42:00 137 mm[Hg] [facility] Diastolic blood pressure 2022-05-06 06:42:00 90 mm[Hg] [facility] Heart rate 2022-05-06 06:42:00 81 /min [facility] Respiratory rate 2022-05-06 06:42:00 16 /min [facility] Oxygen saturation in Arterial blood by Pulse oximetry 2022-05-06 06:42:00 94 /min [facility] Body temperature 2022-05-06 03:30:00 36.78 Nano [facility] Body height 2022-05-06 03:30:00 172.7 cm [facility] Body weight 2022-05-06 03:30:00 117.935 kg [facility] BMI 2022-05-06 03:30:00 39.53 kg/m2 [facility] Systolic blood pressure 2022-05-01 13:30:00 147 mm[Hg] [facility] Diastolic blood pressure 2022-05-01 13:30:00 91 mm[Hg] [facility] Heart rate 2022-05-01 13:30:00 73 /min [facility] Respiratory rate 2022-05-01 13:30:00 17 /min [facility] Oxygen saturation in Arterial blood by Pulse oximetry 2022-05-01 13:30:00 95 /min [facility] Body temperature 2022-05-01 12:28:00 36.78 Nano [facility] Body weight 2022-05-01 12:28:00 121.564 kg [facility] BMI 2022-05-01 12:28:00 40.75 kg/m2 [facility] Systolic blood pressure 2022-02-08 07:00:00 133 mm[Hg] [facility] Diastolic blood pressure 2022-02-08 07:00:00 94 mm[Hg] [facility] Heart rate 2022-02-08 07:00:00 77 /min [facility] Respiratory rate 2022-02-08 07:00:00 21 /min [facility] Oxygen saturation in Arterial blood by Pulse oximetry 2022-02-08 07:00:00 95 /min [facility] Body temperature 2022-02-08 06:04:00 36.5 Nano [facility] Body height 2022-02-08 06:04:00 172.7 cm [facility] Body weight 2022-02-08 06:04:00 113.399 kg [facility] BMI 2022-02-08 06:04:00 38.01 kg/m2 [facility] Systolic blood pressure 2021-10-14 22:36:00 152 mm[Hg] [facility] Diastolic blood pressure 2021-10-14 22:36:00 87 mm[Hg] [facility] Heart rate 2021-10-14 22:36:00 95 /min [facility] Body temperature 2021-10-14 22:36:00 36.94 Nano [facility] Respiratory rate 2021-10-14 22:36:00 18 /min [facility] Body weight 2021-10-14 22:36:00 122.29 kg [facility] BMI 2021-10-14 22:36:00 40.99 kg/m2 [facility] Oxygen saturation in Arterial blood by Pulse oximetry 2021-10-14 22:36:00 97 /min [facility] Systolic blood pressure 2021-05-15 17:15:00 148 mm[Hg] [facility] Diastolic blood pressure 2021-05-15 17:15:00 84 mm[Hg] [facility] Heart rate 2021-05-15 17:15:00 99 /min [facility] Body temperature 2021-05-15 17:15:00 36.5 Nano [facility] Respiratory rate 2021-05-15 17:15:00 20 /min [facility] Body weight 2021-05-15 17:15:00 117.073 kg [facility] BMI 2021-05-15 17:15:00 39.24 kg/m2 [facility] Oxygen saturation in Arterial blood by Pulse oximetry 2021-05-15 17:15:00 97 /min [facility] Systolic blood pressure 2021-05-08 18:10:00 156 mm[Hg] [facility] Diastolic blood pressure 2021-05-08 18:10:00 95 mm[Hg] [facility] Heart rate 2021-05-08 18:10:00 99 /min [facility] Body temperature 2021-05-08 18:10:00 36.06 Nano [facility] Respiratory rate 2021-05-08 18:10:00 18 /min [facility] Body weight 2021-05-08 18:10:00 116.756 kg [facility] BMI 2021-05-08 18:10:00 39.14 kg/m2 [facility] Oxygen saturation in Arterial blood by Pulse oximetry 2021-05-08 18:10:00 96 /min [facility] Systolic blood pressure 2021-05-06 09:26:00 145 mm[Hg] [facility] Diastolic blood pressure 2021-05-06 09:26:00 93 mm[Hg] [facility] Heart rate 2021-05-06 09:26:00 79 /min [facility] Respiratory rate 2021-05-06 09:26:00 20 /min [facility] Oxygen saturation in Arterial blood by Pulse oximetry 2021-05-06 09:26:00 97 /min [facility] Body temperature 2021-05-06 07:56:00 37.11 [facility] Body height 2021-05-06 07:56:00 172.7 cm [facility] Body weight 2021-05-06 07:56:00 118.434 kg [facility] BMI 2021-05-06 07:56:00 39.70 kg/m2 [facility] Systolic blood pressure 2021-03-15 06:19:00 127 mm[Hg] [facility] Diastolic blood pressure 2021-03-15 06:19:00 79 mm[Hg] [facility] Heart rate 2021-03-15 06:19:00 78 /[facility] Respiratory rate 2021-03-15 06:19:00 23 /min [facility] Oxygen saturation in Arterial blood by Pulse oximetry 2021-03-15 06:19:00 96 /min [facility] Body temperature 2021-03-15 03:05:45 37 [facility] Body weight 2021-03-15 02:46:00 114.76 kg [facility] BMI 2021-03-15 02:46:00 38.47 kg/m2 [facility] Systolic blood pressure 2021-03-15 06:19:00 127 mm[Hg] [facility] Diastolic blood pressure 2021-03-15 06:19:00 79 mm[Hg] [facility] Heart rate 2021-03-15 06:19:00 78 /min [facility] Respiratory rate 2021-03-15 06:19:00 23 /min [facility] Oxygen saturation in Arterial blood by Pulse oximetry 2021-03-15 06:19:00 96 /min [facility] Body temperature 2021-03-15 03:05:45 37 [facility] Body weight 2021-03-15 02:46:00 114.76 kg [facility] BMI 2021-03-15 02:46:00 38.47 kg/m2 [facility] Systolic blood pressure 2020-09-09 00:10:00 124 mm[Hg] [facility] Diastolic blood pressure 2020-09-09 00:10:00 77 mm[Hg] [facility] Heart rate 2020-09-09 00:10:00 83 /min [facility] Respiratory rate 2020-09-09 00:10:00 16 /min [facility] Oxygen saturation in Arterial blood by Pulse oximetry 2020-09-09 00:10:00 97 /min [facility] Body temperature 2020-09-08 23:14:00 37.39 Nano [facility] Body weight 2020-09-08 22:49:00 107.956 kg [facility] BMI 2020-09-08 22:49:00 36.19 kg/m2 [facility] Systolic blood pressure 2020-09-09 00:10:00 124 mm[Hg] [facility] Diastolic blood pressure 2020-09-09 00:10:00 77 mm[Hg] [facility] Heart rate 2020-09-09 00:10:00 83 /min [facility] Respiratory rate 2020-09-09 00:10:00 16 /min [facility] Oxygen saturation in Arterial blood by Pulse oximetry 2020-09-09 00:10:00 97 /min [facility] Body temperature 2020-09-08 23:14:00 37.39 Nano [facility] Body weight 2020-09-08 22:49:00 107.956 kg [facility] BMI 2020-09-08 22:49:00 36.19 kg/m2 [facility] Systolic blood pressure 2020-09-06 19:30:00 115 mm[Hg] [facility] Diastolic blood pressure 2020-09-06 19:30:00 65 mm[Hg] [facility] Heart rate 2020-09-06 19:30:00 67 /min [facility] Body temperature 2020-09-06 19:30:00 36.83 Nano [facility] Respiratory rate 2020-09-06 19:30:00 19 /min [facility] Oxygen saturation in Arterial blood by Pulse oximetry 2020-09-06 19:30:00 99 /min [facility] Body weight 2020-09-06 15:41:00 107.956 kg [facility] BMI 2020-09-06 15:41:00 36.19 kg/m2 [facility] Systolic blood pressure 2020-09-06 19:30:00 115 mm[Hg] [facility] Diastolic blood pressure 2020-09-06 19:30:00 65 mm[Hg] [facility] Heart rate 2020-09-06 19:30:00 67 /min [facility] Body temperature 2020-09-06 19:30:00 36.83 Nano [facility] Respiratory rate 2020-09-06 19:30:00 19 /min [facility] Oxygen saturation in Arterial blood by Pulse oximetry 2020-09-06 19:30:00 99 /min [facility] Body weight 2020-09-06 15:41:00 107.956 kg [facility] BMI 2020-09-06 15:41:00 36.19 kg/m2 [facility] Systolic blood pressure 2020-08-30 13:11:00 136 mm[Hg] [facility] Diastolic blood pressure 2020-08-30 13:11:00 77 mm[Hg] [facility] Heart rate 2020-08-30 13:11:00 74 /min [facility] Body temperature 2020-08-30 13:11:00 36.5 Nano [facility] Respiratory rate 2020-08-30 13:11:00 18 /min [facility] Oxygen saturation in Arterial blood by Pulse oximetry 2020-08-30 13:11:00 96 /min [facility] Body weight 2020-08-30 09:00:00 107.956 kg [facility] BMI 2020-08-30 09:00:00 36.19 kg/m2 [facility] Body height 2020-08-27 07:49:00 172.7 cm [facility] Systolic blood pressure 2020-08-30 13:11:00 136 mm[Hg] [facility] Diastolic blood pressure 2020-08-30 13:11:00 77 mm[Hg] [facility] Heart rate 2020-08-30 13:11:00 74 /min [facility] Body temperature 2020-08-30 13:11:00 36.5 Nano [facility] Respiratory rate 2020-08-30 13:11:00 18 /min [facility] Oxygen saturation in Arterial blood by Pulse oximetry 2020-08-30 13:11:00 96 /min [facility] Body weight 2020-08-30 09:00:00 107.956 kg [facility] BMI 2020-08-30 09:00:00 36.19 kg/m2 [facility] Body height 2020-08-27 07:49:00 172.7 cm [facility] Systolic blood pressure 2020-07-10 05:30:00 123 mm[Hg] [facility] Diastolic blood pressure 2020-07-10 05:30:00 77 mm[Hg] [facility] Heart rate 2020-07-10 05:30:00 75 /min [facility] Respiratory rate 2020-07-10 05:30:00 19 /min [facility] Oxygen saturation in Arterial blood by Pulse oximetry 2020-07-10 05:30:00 97 /min [facility] Body temperature 2020-07-10 00:48:00 37.39 Nano [facility] Body height 2020-07-10 00:48:00 172.7 cm [facility] Body weight 2020-07-10 00:43:00 99.791 kg [facility] BMI 2020-07-10 00:43:00 33.45 kg/m2 [facility] Systolic blood pressure 2020-07-10 05:30:00 123 mm[Hg] [facility] Diastolic blood pressure 2020-07-10 05:30:00 77 mm[Hg] [facility] Heart rate 2020-07-10 05:30:00 75 /min [facility] Respiratory rate 2020-07-10 05:30:00 19 /min [facility] Oxygen saturation in Arterial blood by Pulse oximetry 2020-07-10 05:30:00 97 /min [facility] Body temperature 2020-07-10 00:48:00 37.39 Nano [facility] Body height 2020-07-10 00:48:00 172.7 cm [facility] Body weight 2020-07-10 00:43:00 99.791 kg [facility] BMI 2020-07-10 00:43:00 33.45 kg/m2 [facility] Procedures Procedure Date / Time Performed Performing Clinician Source URINALYSIS 2024-02-04 18:16:00 [facility] CT ABDOMEN PELVIS W CONTRAST 2024-02-04 16:52:00 Dillon [facility] LIPASE 2024-02-04 16:00:[address] [facility] COMP. METABOLIC PANEL ([id number]) 2024-02-04 16:00:00 Dillon [facility] CBC WITH DIFF 2024-02-04 16:00:[address] [facility] CONSENT/REFUSAL FOR DIAGNOSIS AND TREATMENT 2023-12-28 08:06:27 Doctor Unassigned, [facility] EKG-12 LEAD 2023-11-06 08:26:13 SheilaNidia [facility]yer [facility] LIPASE 2023-11-06 06:15:00 [facility]Nidia [facility] MAGNESIUM 2023-11-06 06:15:00 [facility]Nidia [facility] COMP. METABOLIC PANEL ([id number]) 2023-11-06 06:15:00 Nidia Solano [facility] CBC WITH DIFF 2023-11-06 06:15:00 SheilaNidia dyer [facility] URINALYSIS 2023-11-06 06:15:00 [facility]idia [facility] CONSENT/REFUSAL FOR DIAGNOSIS AND TREATMENT 2023-11-06 05:40:44 Doctor Unassigned, [facility] CT ABDOMEN PELVIS W CONTRAST 2023-11-01 08:32:40 Jose Francisco Walters [facility] LIPASE 2023-11-01 05:45:00 Jose Francisco Walters [facility] COMP. METABOLIC PANEL ([id number]) 2023-11-01 05:45:00 Jose Francisco Walters [facility] CBC WITH DIFF 2023-11-01 05:45:00 Jose Francisco Walters [facility] URINALYSIS 2023-11-01 05:45:00 Jose Francisco Walters [facility] POCT GLUCOSE (AUTOMATED) 2023-11-01 05:41:00 Lena Walters [facility] CONSENT/REFUSAL FOR DIAGNOSIS AND TREATMENT 2023-11-01 05:29:45 Doctor Unassigned, [facility] CT ABDOMEN PELVIS W CONTRAST 2023-10-23 07:06:44 Chapito Contreras [facility] LIPASE 2023-10-23 05:50:[facility] METABOLIC PANEL ([id number]) 2023-10-23 05:50:00 Chapito Contreras [facility] CBC WITH DIFF 2023-10-23 05:50:00 Chapito Contreras [facility] URINALYSIS 2023-10-23 05:50:00 Chapito Contreras [facility] CONSENT/REFUSAL FOR DIAGNOSIS AND TREATMENT 2023-10-23 05:34:08 Doctor Unassigned, [facility] URINALYSIS 2023-09-26 06:12:00 Loren Tam [facility] LIPASE 2023-09-26 05:12:00 Jose BarrettAlvarez [facility] HEPATIC FUNCTION PANEL ([id number]) (ALB,T.PRO,BILI T,BU/BC,ALT,AST,ALK PHOS) 2023-09-26 05:12:00 [facility] BASIC METABOLIC PANEL (NA, K, CL, CO2, GLUCOSE, BUN, CREATININE, CA) 2023-09-26 05:12:00 [facility] CBC WITH DIFF 2023-09-26 05:12:00 Loren Tam [facility] NOTICE OF PRIVACY PRACTICES 2023-09-26 04:50:48 Doctor Unassigned, [facility] CONSENT/REFUSAL FOR DIAGNOSIS AND TREATMENT 2023-09-26 04:50:08 Doctor Unassigned, [facility] CT CHEST PULMONARY ANGIOGRAM 2023-08-24 08:02:29 Patrick Vergara [facility] XR CHEST 1 VW 2023-08-24 04:38:16 [facility] TROPONIN I 2023-08-24 04:29:00 [facility] METABOLIC PANEL ([id number]) 2023-08-24 04:29:00 Patrick Vergara [facility] CBC WITH DIFF 2023-08-24 04:29:00 [facility] CONSENT/REFUSAL FOR DIAGNOSIS AND TREATMENT 2023-08-24 03:41:11 Doctor Unassigned, [facility] LIPASE 2023-07-07 09:22:00 Chapito Contreras [facility] TROPONIN I 2023-07-07 09:22:00 Chapito Contreras [facility] COMP. METABOLIC PANEL ([id number]) 2023-07-07 09:22:00 Chapito Contreras [facility] CBC WITH DIFF 2023-07-07 09:22:00 Chapito Contreras [facility] URINALYSIS 2023-07-07 09:22:00 Chapito Contreras [facility] CONSENT/REFUSAL FOR DIAGNOSIS AND TREATMENT 2023-07-07 08:49:51 Doctor Unassigned, [facility] POCT GLUCOSE (AUTOMATED) 2023-05-26 02:17:00 Nidia Solano [facility] URINALYSIS 2023-05-26 01:24:00 Nidia Solano [facility] POCT GLUCOSE (AUTOMATED) 2023-05-26 01:22:00 Nidia Solano [facility] TROPONIN I 2023-05-26 00:54:00 Nidia Solano [facility] COVID-19 (ID NOW RAPID TESTING) 2023-05-26 00:54:00 Nidia Solano [facility] ASSIGNMENT OF BENEFITS 2023-05-26 00:29:59 Docto r Unassigned, [facility] XR CHEST 1 VW 2023-05-25 22:41:21 Nidia Solano [facility] LIPASE 2023-05-25 22:33:00 [facility]23-05-25 22:33:00 [facility] TROPONIN I 2023-05-25 22:33:00 N[facility] COMP. METABOLIC PANEL ([id number]) 2023-05-25 22:33:00 Nidia Solano [facility] CBC WITH DIFF 2023-05-25 22:33:00 Nidia Solano [facility] N-TERMINAL PRO-BNP 2023-05-25 22:33:00 Nidia Solano Haily [facility] CONSENT/REFUSAL FOR DIAGNOSIS AND TREATMENT 2023-05-25 22:07:05 Doctor Unassigned, [facility] COVID-19 (ID NOW RAPID TESTING) 2023-02-20 23:30:00 Sofia Escobar [facility] CONSENT/REFUSAL FOR DIAGNOSIS AND TREATMENT 2023-02-20 22:54:00 Doctor Unassigned, [facility] CT ABDOMEN PELVIS W CONTRAST 2022-12-29 08:28:18 Chapito Contreras [facility] LIPASE 2022-12-29 07:11:00 Chapito Contreras [facility] COMP. METABOLIC PANEL ([id number]) 2022-12-29 07:11:00 Chapito Contreras [facility] CBC WITH DIFF 2022-12-29 07:11:00 Chapito Contreras [facility] URINALYSIS 2022-12-29 07:11:00 Chapito Contreras [facility] CONSENT/REFUSAL FOR DIAGNOSIS AND TREATMENT 2022-12-29 06:24:27 Doctor Unassigned, [facility] CONSENT/REFUSAL FOR DIAGNOSIS AND TREATMENT 2022-11-21 08:05:19 Doctor Unassigned, [facility] RAPID STREP SCREEN FOR GROUP A 2022-10-29 07:36:00 Marie Morales [facility] CONSENT/REFUSAL FOR DIAGNOSIS AND TREATMENT 2022-10-29 07:23:03 Doctor Unassigned, [facility] CONSENT/REFUSAL FOR DIAGNOSIS AND TREATMENT 2022-06-02 04:34:17 Doctor Unassigned, [facility] FREE T4 2022-05-28 16:06:00 [facility] THYROID STIMULATING HORMONE 2022-05-28 16:06:00 Singer [facility] COMP. METABOLIC PANEL ([id number]) 2022-05-28 16:06:00 Singer [facility] CBC WITH DIFF 2022-05-28 16:06:00 Saqib Clarke [facility] FREE T3 2022-05-28 16:06:00 Saqib Clarke [facility] CONSENT/REFUSAL FOR DIAGNOSIS AND TREATMENT 2022-05-28 14:55:38 Doctor Unassigned, [facility] CT ABDOMEN PELVIS W CONTRAST 2022-05-06 06:06:56 Nidia Solano [facility] LIPASE 2022-05-06 05:17:00 N[facility] MAGNESIUM 2022-05-06 05:17:00 Nidia [facility] TROPONIN I 2022-05-06 05:17:00 Nidia [facility] COMP. METABOLIC PANEL ([id number]) 2022-05-06 05:17:00 Nidia Solano [facility] CBC WITH DIFF 2022-05-06 05:17:00 Nidia Solano [facility] URINALYSIS 2022-05-06 05:17:00 Nidia Solano [facility] RAPID INFLUENZA A/B 2022-05-06 03:48:00 Nidia Solano [facility] COVID-19 (ID NOW RAPID TESTING) 2022-05-06 03:48:00 Nidia Solano [facility] CONSENT/REFUSAL FOR DIAGNOSIS AND TREATMENT 2022-05-06 03:22:49 Doctor Unassigned, [facility] COMP. METABOLIC PANEL ([id number]) 2022-05-01 12:[facility]22-05-01 12:42:[address] [facility] CONSENT/REFUSAL FOR DIAGNOSIS AND TREATMENT 2022-05-01 12:23:44 Doctor Unassigned, [facility] URINALYSIS 2022-02-08 06:27:00 [facility] URINE DRUG (IMMUNOASSAY) - COMPREHENSIVE DRUG SCREEN W/O REFLEX 2022-02-08 06:27:00 Benjamin Ashford [facility] LIPASE 2022-02-08 06:15:00 [facility] TROPONIN I 2022-02-08 06:15:00 Benjamin [facility] COMP. METABOLIC PANEL ([id number]) 2022-02-08 06:15:00 Benjamin Ashford [facility] ETHANOL 2022-02-08 06:15:00 Benjamin Ashford [facility] CBC WITH DIFF 2022-02-08 06:15:00 Benjamin Ashford [facility] PROTHROMBIN TIME / INR 2022-02-08 06:15:00 Jeremy Ashford [facility] ACTIVATED PARTIAL THRMPLAS ELAINE 2022-02-08 06:15:00 Benjamin Ashford [facility] N-TERMINAL PRO-BNP 2022-02-08 06:15:00 Benjamin Ashford [facility] NOTICE OF PRIVACY PRACTICES 2022-02-08 06:01:50 Doctor Unassigned, [facility] CONSENT/REFUSAL FOR DIAGNOSIS AND TREATMENT 2022-02-08 05:59:20 Doctor Unassigned, [facility] CT ABDOMEN PELVIS W CONTRAST 2021-10-15 00:40:39 Marie Morales [facility] LIPASE 2021-10-15 00:26:00 [facility] TR[facility]ON[facility] 2021-10-15 00:26:00 Marie Morales [facility] COMP. METABOLIC PANEL ([id number]) 2021-10-15 00:26:00 Marie Morales [facility] CBC WITH DIFF 2021-10-15 00:26:00 Marie Morales [facility] NOTICE OF PRIVACY PRACTICES 2021-10-14 22:18:20 Doctor Unassigned, [facility] CONSENT/REFUSAL FOR DIAGNOSIS AND TREATMENT 2021-10-14 22:17:56 Doctor Unassigned, [facility] CT ABDOMEN PELVIS W CONTRAST 2021-03-15 04:54:23 Chapito Contreras [facility] COVID-19 (ID NOW RAPID TESTING) 2021-03-15 03:34:00 Chapito Contreras [facility] URINALYSIS 2021-03-15 03:16:00 Chapito Contreras [facility] COMP. METABOLIC PANEL ([id number]) 2021-03-15 03:11:00 Chapito Contreras [facility] CBC WITH DIFF 2021-03-15 03:11:00 Chapito Contreras [facility] CONSENT/REFUSAL FOR DIAGNOSIS AND TREATMENT 2021-03-15 02:38:38 Doctor Unassigned, [facility] LIPASE 2020-09-08 23:14:00 Saqib Clarke [facility] COMP. METABOLIC PANEL ([id number]) 2020-09-08 23:14:00 Saqib Clarke [facility] CBC WITH DIFF 2020-09-08 23:14:00 Saqib Clarke [facility] CONSENT/REFUSAL FOR DIAGNOSIS AND TREATMENT 2020-09-08 22:38:49 Doctor Unassigned, [facility] CT ABDOMEN PELVIS W CONTRAST 2020-09-06 17:05:33 Nidia Solano [facility] LACTIC ACID WHOLE BLOOD 2020-09-06 16:31:00 Nidia Solano [facility] LIPASE 2020-09-06 16:11:00 Nidia Solano [facility] MAGNESIUM 2020-09-06 16:11:00 Nidia Solano [facility] COMP. METABOLIC PANEL ([id number]) 2020-09-06 16:11:00 Nidia Solano Haily [facility] CBC WITH DIFF 2020-09-06 16:11:00 Nidia Solano Haily [facility] NOTICE OF PRIVACY PRACTICES 2020-09-06 15:30:39 Doctor Unassigned, [facility] CONSENT/REFUSAL FOR DIAGNOSIS AND TREATMENT 2020-09-06 15:30:28 Doctor Unassigned, [facility] COMP. METABOLIC PANEL (25332) 2020-08-30 08:39:00 Dillon [facility] CBC WITH DIFF 2020-08-30 08:39:00 [facility] COMPLETE 2020-08-28 18:11:06 Patrick No [facility] ECHO ROUTINE W/DOPPLER COLOR 2020-08-28 16:34:45 Oneal [facility] HEPATIC FUNCTION PANEL (73125) (ALB,T.PRO,BILI T,BU/BC,ALT,AST,ALK PHOS) 2020-08-28 10:16:00 Favio Chang [facility] BASIC METABOLIC PANEL (NA, K, CL, CO2, GLUCOSE, BUN, CREATININE, CA) 2020-08-28 10:16:00 Oneal [facility] TROPONIN I 2020-08-27 18:11:00 Gricelda No [facility] POCT GLUCOSE (AUTOMATED) 2020-08-27 18:02:00 [facility] GLUCOSE (AUTOMATED) 2020-08-27 13:49:00 Clau No [facility] TROPONIN I 2020-08-27 11:35:00 [facility] PEL[facility] W WO CONTRAST 2020-08-27 07:38:49 Oneal [facility] COVID-19 (ID NOW RAPID TESTING) 2020-08-27 06:21:00 Benjamin Ashford [facility] URINALYSIS 2020-08-27 06:20:00 Benjamin Ashford [facility] ADC / LCC - DRUG SCREEN TRIAGE 2020-08-27 06:20:00 Benjamin Ashford [facility] XR CHEST 1 VW 2020-08-27 06:05:42 Benjamin Ashford [facility] LIPASE 2020-08-27 05:58:00 Benjamin Ashford [facility] TROPONIN I 2020-08-27 05:58:00 Benjamin Ashford [facility] THYROID STIMULATING HORMONE 2020-08-27 05:58:00 [facility] HEPATIC FUNCTION PANEL (65210) (ALB,T.PRO,BILI T,BU/BC,ALT,AST,ALK PHOS) 2020-08-27 05:58:00 Benjamin Ashford [facility] BASIC METABOLIC PANEL (NA, K, CL, CO2, GLUCOSE, BUN, CREATININE, CA) 2020-08-27 05:58:00 Benjamin Ashford [facility] LIPID PANEL (52721)(TOTAL CHOLESTEROL, TRIGLYCERIDES, HDL) 2020-08-27 05:58:00 Gricelda No [facility] ETHANOL 2020-08-27 05:58:00 [facility] CBC WITH DIFF 2020-08-27 05:58:00 Benjamin Ashford [facility] PROTHROMBIN TIME / INR 2020-08-27 05:58:00 Jeremy Ashford [facility] ACTIVATED PARTIAL THRMPLAS ELAINE 2020-08-27 05:58:00 Benjamin Ashford [facility] EKG-12 LEAD 2020-08-27 05:54:03 Benjamin Ashford [facility] NOTICE OF PRIVACY PRACTICES 2020-08-27 05:44:26 Doctor Unassigned, [facility] CONSENT/REFUSAL FOR DIAGNOSIS AND TREATMENT 2020-08-27 05:43:44 Doctor Unassigned, [facility] CONSENT/REFUSAL FOR DIAGNOSIS AND TREATMENT 2020-08-27 05:43:43 Doctor Unassigned, [facility] CT ABDOMEN PELVIS W CONTRAST 2020-07-10 05:12:21 Chapito Contreras [facility] TROPONIN I 2020-07-10 03:49:00 Chapito Contreras [facility] ADC / LCC - DRUG SCREEN TRIAGE 2020-07-10 03:13:00 Chapito Contreras [facility] XR CHEST 1 VW 2020-07-10 01:05:14 Chapito Contreras [facility] LIPASE 2020-07-10 00:55:00 Chapito Contreras [facility] TROPONIN I 2020-07-10 00:55:00 Chapito Contreras [facility] COMP. METABOLIC PANEL (16077) 2020-07-10 00:55:00 Chapito Contreras [facility] CBC WITH DIFF 2020-07-10 00:55:00 Chapito Contreras [facility] PROTHROMBIN TIME / INR 2020-07-10 00:55:00 Yesica Contreras [facility] D-DIMER 2020-07-10 00:55:00 Chapito Contreras [facility] COVID-19 (ID NOW RAPID TESTING) 2020-07-10 00:55:00 Chapito Contreras [facility] EKG-12 LEAD 2020-07-10 00:52:35 Chapito Contreras [facility] Encounters Start Date/Time End Date/Time Encounter Type Admission Type Attending Clinicians Care Facility Care Department Encounter ID Source 2024-11-13 20:42:00 2024-11-13 22:15:00 Emergency X ELSA WHITE PAMALA [facility] ERT [id number] [facility] 2024-11-13 20:42:00 2024-11-13 22:15:00 [facility] 1.2.840.114 350.1.13.10 4.2.7.2.686 [id number] [facility] 2024-02-09 00:00:00 2024-03-13 18:08:36 Patient Secure Msg Doctor Unassigned, [facility] 1.2840.114 350.1.13.10 4.2.7.2.686 [id number] [facility] 2024-02-04 10:45:00 2024-02-04 14:36:00 Emergency X [facility] [id number] [facility] 2024-02-04 10:45:00 2024-02-04 14:36:00 Emergency Washington Bustamanteine [facility] 1.2840.114 350.1.13.10 4.2.7.2.686 [id number] [facility] 2023-12-28 03:16:00 2023-12-28 04:32:00 Emergency X JABARISUKHWINDERLEXIE WENDYCHAPITO DELGADILLO [facility] [id number] [facility] 2023-12-28 03:16:00 2023-12-28 04:32:00 Emergency Chapito Contreras Clau [facility] 1.2840.114 350.1.13.10 4.2.7.2.686 [id number] [facility] 2023-11-05 23:52:00 2023-11-06 02:37:00 Emergency X Nidia SOLANO K [facility] [id number] [facility] 2023-11-05 23:52:00 2023-11-06 02:37:00 Emergency Nidia Solano [facility] 1.2840.114 350.1.13.10 4.2.7.2.686 [id number] [facility] 2023-10-31 23:33:00 2023-11-01 04:19:00 Emergency X JOSE FRANCISCO WALTERS [facility] [id number] [facility] 2023-10-31 23:33:00 2023-11-01 04:19:00 Emergency Jose Francisco Walters [facility] 1.2840.114 350.1.13.10 4.2.7.2.686 [id number] 084 [id number] [facility] 2023-10-22 23:39:00 2023-10-23 02:31:00 Emergency X CHAPITO CONTRERAS [facility] [id number] [facility] 2023-10-22 23:39:00 2023-10-23 02:31:00 Emergency Tim Contreraszaida Clau [facility] 1.840.114 350.1.13.10 4.2.7.2.686 [id number] [id number] [facility] 2023-09-25 23:04:00 2023-09-26 02:30:00 Emergency X LOREN TAM HEE-KWANG [facility] [id number] [facility] 2023-09-25 23:04:00 2023-09-26 02:30:00 Emergency Loren Tam [facility] 1.2840.114 350.1.13.10 4.2.7.2.686 [id number] [facility] 2023-08-25 00:00:00 2023-08-25 00:00:00 Patient Secure Msg Doctor Unassigned, [facility] 1.2840.114 350.1.13.10 4.2.7.2.686 [id number] [facility] 2023-08-23 22:43:00 2023-08-24 02:41:00 Emergency Vergara, Patrick S [facility] 1.2.840.114 350.1.13.10 4.2.7.2.686 [id number] [facility] 2023-08-23 22:43:00 2023-08-24 02:41:00 Emergency X PATRICK VERGARA [facility] [id number] [facility] 2023-07-07 03:51:00 2023-07-07 05:56:00 Emergency X CHAPITO CONTRERAS [facility] [id number] [facility] 2023-07-07 03:51:00 2023-07-07 05:56:00 Emergency Chapito Contreras [facility] 1.2.840.114 350.1.13.10 4.2.7.2.686 [id number] [facility] 2023-05-25 17:20:00 2023-05-25 22:37:00 Emergency X Nidia SOLANO [facility] [id number] [facility] 2023-05-25 17:20:00 2023-05-25 22:37:00 Emergency Nidia Solano Haily [facility] 1.2.840.114 350.1.13.10 4.2.7.2.686 [id number] [facility] 2023-02-20 18:06:00 2023-02-20 21:03:00 Emergency X SOFIA ESCOBAR SOFIA [facility] [id number] [facility] 2023-02-20 18:06:00 2023-02-20 21:03:00 Emergency Sofia Escobar [facility] 1.2.840.114 350.1.13.10 4.2.7.2.686 [id number] [facility] 2023-02-20 00:00:00 2023-02-20 00:00:00 Orders Only Doctor Unassigned, [facility] 1.2840.114 350.1.13.10 4.2.7.2.686 [id number] [facility] 2022-12-29 00:24:00 2022-12-29 05:29:00 Emergency X CHAPITO CONTRERAS [facility] [id number] [facility] 2022-12-29 00:24:00 2022-12-29 05:29:00 Emergency Chapito Contreras [facility] 1.2.840.114 350.1.13.10 4.2.7.2.686 [id number] [facility] 2022-11-21 02:14:00 2022-11-21 03:04:00 Emergency X PATRICK VERGARA [facility] [id number] [facility] 2022-11-21 02:14:00 2022-11-21 03:04:00 Emergency Patrick Vergara [facility] 1.2.840.114 350.1.13.10 4.2.7.2.686 [id number] [facility] 2022-10-29 01:37:00 2022-10-29 02:25:00 Emergency CECILE CHATTERJEERA [facility] [id number] [facility] 2022-10-29 01:37:00 2022-10-29 02:25:00 Emergency CarmenMarie Dee [facility] 1.2840.114 350.1.13.10 4.2.7.2.686 [id number] [facility] 2022-06-01 23:34:00 2022-06-02 00:39:00 Emergency Dariela CLARKESAQIB [facility] [id number] [facility] 2022-06-01 23:34:00 2022-06-02 00:39:00 Emergency Saqib Clarke [facility] 1.2840.114 350.1.13.10 4.2.7.2.686 [id number] [facility] 2022-05-28 11:00:00 2022-05-28 13:39:00 Emergency X SAQIB CLARKE [facility] [id number] [facility] 2022-05-28 11:00:00 2022-05-28 13:39:00 Emergency Saqib Clarke [facility] 1.2840.114 350.1.13.10 4.2.7.2.686 [id number] [id number] [facility] 2022-05-05 22:33:00 2022-05-06 01:49:00 Emergency X Nidia SOLANO [facility] [id number] [facility] 2022-05-05 22:33:00 2022-05-06 01:49:00 Emergency Nidia Solano Haily [facility] 1.2.840.114 350.1.13.10 4.2.7.2.686 [id number] [facility] 2022-05-01 07:33:00 2022-05-01 09:07:00 Emergency SAQBI MEDRANO [facility] [id number] [facility] 2022-05-01 07:33:00 2022-05-01 09:07:00 Emergency Saqib Clarke [facility] 1.2840.114 350.1.13.10 4.2.7.2.686 [id number] [facility] 2022-02-08 01:00:00 2022-02-08 03:03:00 Emergency X BEREKET BENJAMIN [facility] [id number] [facility] 2022-02-08 01:00:00 2022-02-08 03:03:00 Emergency Benjamin Ashford [facility] 1.2840.114 350.1.13.10 4.2.7.2.686 [id number] [facility] 2021-10-14 16:40:00 2021-10-14 19:30:00 Emergency X CARMEN MARIE [facility] [id number] [facility] 2021-10-14 16:40:00 2021-10-14 19:30:00 Emergency Marie Morales Dee [facility] 1.2.840.114 350.1.13.10 4.2.7.2.686 [id number] [facility] 2021-05-15 12:11:58 2021-05-15 23:59:00 Hospital Encounter Geoff Cardona [facility] 1.2.840.114 350.1.13.10 4.2.7.2.686 [id number] [facility] 2021-05-15 12:30:00 2021-05-15 12:30:00 Outpatient R GEOFF CARDONA [facility] [id number] [facility] 2021-05-08 12:30:00 2021-05-08 23:59:00 Hospital Encounter Kiki Mathur [facility] 1.2.840.114 350.1.13.10 4.2.7.2.686 [id number] [facility] 2021-05-08 12:30:00 2021-05-08 12:30:00 Outpatient KIKI GODINEZ [facility] [id number] [facility] 2021-05-06 03:01:00 2021-05-06 04:28:00 Emergency Saqib Clarke [facility] 1.2.840.114 350.1.13.10 4.2.7.2.686 [id number] [id number] [facility] 2021-05-06 03:01:00 2021-05-06 04:28:00 Emergency X SAQIB CLARKE [facility] [id number] [facility] 2021-03-14 21:49:00 2021-03-15 01:22:00 Emergency Chapito Contreras [facility] 1.2.840.114 350.1.13.10 4.2.7.2.686 [id number] [facility] 2021-03-14 21:49:00 2021-03-15 01:22:00 Emergency Chapito Contreras [facility] 1.2.840.114 350.1.13.10 4.2.7.2.686 [id number] 2021-03-14 21:49:00 2021-03-14 21:49:00 Emergency CHAPITO VELASQUEZ [facility] [id number] [facility] 2020-09-08 16:52:00 2020-09-08 18:13:00 Emergency Saqib Clarke [facility] 1.2.840.114 350.1.13.10 4.2.7.2.686 [id number] [facility] 2020-09-08 16:52:00 2020-09-08 18:13:00 Emergency Saqib Clarke [facility] 1.2.840.114 350.1.13.10 4.2.7.2.686 [id number] 2020-09-08 16:52:00 2020-09-08 16:52:00 Emergency SAQIB MEDRANO [facility] [id number] [facility] 2020-09-06 09:52:00 2020-09-06 13:38:00 Emergency Nidia Solano [facility] 1.2.840.114 350.1.13.10 4.2.7.2.686 [id number] [facility] 2020-09-06 09:52:00 2020-09-06 13:38:00 Emergency Nidia Solano [facility] 1.2.840.114 350.1.13.10 4.2.7.2.686 [id number] 2020-09-06 09:52:00 2020-09-06 09:52:00 Emergency X [facility] [id number] [facility] 2020-09-06 00:00:00 2020-09-06 00:00:00 Orders Only Doctor Unassigned, [facility] 1.2.840.114 350.1.13.10 4.2.7.2.686 [id number] [facility] 2020-09-06 00:00:00 2020-09-06 00:00:00 Orders Only Doctor Unassigned, [facility] 1.2.840.114 350.1.13.10 4.2.7.2.686 [id number] 2020-08-26 23:45:00 2020-08-30 08:05:00 Emergency Jeremy Ashfordvandana No [facility] 1.2.840.114 350.1.13.10 4.2.7.2.686 [id number] [facility] 2020-08-26 23:45:00 2020-08-30 08:05:00 Emergency Benjamin Ashford [facility] 1.2.840.114 350.1.13.10 4.2.7.2.686 [id number] 2020-08-26 23:43:00 2020-08-26 23:43:00 Emergency X [facility] [id number] [facility] 2020-07-09 19:41:00 2020-07-10 00:40:00 Emergency Chapito Contreras [facility] 1.2.840.114 350.1.13.10 4.2.7.2.686 [id number] [facility] 2020-07-09 19:41:00 2020-07-10 00:40:00 Emergency Chapito Contreras [facility] 1.2.840.114 350.1.13.10 4.2.7.2.686 [id number] 2020-07-09 19:41:00 2020-07-09 19:41:00 Emergency X CHAPITO CONTRERAS [facility] [id number] [facility] 2005-04-01 12:20:00 2005-04-01 20:14:00 Emergency X MARIBELL CEDILLO [facility] [id number] [facility] Results Test Description Test Time Test [...] clinically for any signs and symptomsof [facility]stitis. [facility] [id number] 17:02:35* Test Item Value Reference Range Interpretation Comme nts NA (test code = 5333099430) 139 mmol/L 135-145 K (test code = 9181301224) 4.4 mmol/L 3.5-5.0 CL (test code = 3251717659) 101 mmol/L 98-108 CO2 TOTAL (test code = 5722321480) 31 mmol/L 23-31 AGAP (test code = 8698381883) 7 2-16 BUN (test code = 3244395690) 12 mg/dL 7-23 GLUCOSE (test code = 5611007207) 100 mg/dL 70-110 CREATININE (test code = 2160-0) 0.61 mg/dL 0.60-1.25 TOTAL BILI (test code = 2096657723) 0.5 mg/dL 0.1-1.1 CALCIUM (test code = 6798153783) 9.8 mg/dL 8.6-10.6 T PROTEIN (test code = 8109966924) 8.4 g/dL 6.3-8.2 H ALBUMIN (test code = 6950029901) 4.7 g/dL 3.5-5.0 ALK PHOS (test code = 4406392619) 84 U/L 34-122 ALTv (test code = 1742-6) 23 U/L 5-50 AST(SGOT) (test code = 4439227216) 25 U/L 13-40 eGFR (test code = 07576-3) 120.0 mL/min/1.73m2 CKD-EPI eGFR (2020). Assuming creatinine has been stable day-to-day for at least three months, the eGFR indicates Category G1 (>= 90 mL/min/1.73 m2) Lab Interpretation (test code = 25222-9) [facility]normal [facility], [id number] 17:01:54* Test Item Value Reference Range Interpretation Comme nts LIPASE (test code = 4309734162) 42 U/L 0-220 Lab Interpretation (test cod e = 16533-7) Normal [facility]2024-01-18 07:16:16* Test Item Value Reference Range Interpretation Comme nts MAGNESIUM (test code = 0695952085) 2.2 mg/dL 1.7-2.4 Lab Interpretation (test cod e = 17882-6) Normal [facility] Met[facility] Panel (61528)2023-11-06 07:16:15* Test Item Value Reference Range Interpretation Comme nts NA (test code = 3412672269) 138 mmol/L 135-145 K (test code = 6586489667) 3.5 mmol/L 3.5-5.0 CL (test code = 9036985441) 106 mmol/L 98-108 CO2 TOTAL (test code = 0447329419) 23 mmol/L 23-31 AGAP (test code = 8725729025) 9 2-16 BUN (test code = 4688839917) 18 mg/dL 7-23 GLUCOSE (test code = 4411747601) 110 mg/dL 70-110 CREATININE (test code = 7827077661) 0.73 mg/dL 0.60-1.25 TOTAL BILI (test code = 7355168108) 0.4 mg/dL 0.1-1.1 CALCIUM (test code = 1043094251) 9.4 mg/dL 8.6-10.6 T PROTEIN (test code = 6776823681) 8.5 g/dL 6.3-8.2 H ALBUMIN (test code = 0284758614) 4.8 g/dL 3.5-5.0 ALK PHOS (test code = 7321849669) 78 U/L 34-122 ALTv (test code = 1742-6) 42 U/L 5-50 AST(SGOT) (test code = 1964670508) 43 U/L 13-40 H eGFR (test code = 39597-1) 113.6 mL/min/1.73m2 CKD-EPI eGFR (2020). Assuming creatinine has been stable day-to-day for at least three months, the eGFR indicates Category G1 (>= 90 mL/min/1.73 m2) Lab Interpretation (test code = 38046-3) Abnormal [facility]2024-01-18 07:16:15* Test Item Value Reference Range Interpretation Comme nts LIPASE (test code = 9483547127) 118 U/L 0-220 Lab Interpretation (test cod e = 64256-6) Normal [facility] HospitalCb with [id number] 06:49:12* Test Item Value Reference Range Interpretation [...] 33.5 g/dL 31.2-35.0 RDW-SD (test code = 39326-9) 46.4 fL 38.5-51.6 RDW-CV (test code = 788-0) 13.7 % 12.1-15.4 PLT (test code = 777-3) 323 See_Comment [Automated messa ge] The system which generated this result transmitted reference range: 150 - 328 10*3/?L. The reference range was not used to interpret this result as normal/abnormal. MPV (test code = 54919-4) 9.8 fL 9.8-13.0 NRBC/100 WBC (test code = 7277183440) 0.0 See_Comment [Automated [employer] ssage] The system which generated this result transmitted reference range: 0.0 - 10.0 /100 WBCs. The reference range was not used to interpret this result as normal/abnormal. NRBC x10^3 (test code = 6583442388) See_Comment [Automated messa ge] The system which generated this result transmitted reference range: 10*3/?L. The reference range was not used to interpret this result as normal/abnormal. GRAN MAT (NEUT) % (test code = 770-8) 56.1 % IMM GRAN % (test code = 8972186765) 0.50 % LYMPH % (test code = 736-9) 34.8 % MONO % (test code = 5905-5) 6.3 % EOS % (test code = 713-8) 1.4 % BASO % (test code = 706-2) 0.9 % GRAN MAT x10^3(ANC) (test code = 9441959957) 6.38 10*3/uL 1.99-6.95 IMM GRAN x10^3 (test code = 7156184285) 0.06 10*3/uL 0.00-0.06 LYMPH x10^3 (test code = 731-0) 3.95 10*3/uL 1.09-3.23 H MONO x10^3 (test code = 742-7) 0.71 10*3/uL 0.36-1.02 EOS x10^3 (test code = 711-2) 0.16 10*3/uL 0.06-0.53 BASO x10^3 (test code = 704-7) 0.10 10*3/uL 0.01-0.09 H Lab Interpretation (test code = 60238-3) Abnormal [facility] PEL[facility] W [id number] 09:00:37Ordering physician: JOSE FRANCISCO WALTERS Indication: Acute [...] abdomen andpelvis demonstrate no osseous destructive lesion. [facility] Metabolic Fqsju6095-52-82 06:29:13* Test Item Value Reference Range Interpretation Comme nts NA (test code = 7956778296) 138 mmol/L 135-145 K (test code = 7781855615) 3.8 mmol/L 3.5-5.0 CL (test code = 3706435247) 106 mmol/L 98-108 CO2 TOTAL (test code = 8977382117) 21 mmol/L 23-31 L AGAP (test code = 8395487825) 11 2-16 BUN (test code = 9279528575) 13 mg/dL 7-23 GLUCOSE (test code = 2953151512) 113 mg/dL 70-110 H CREATININE (test code = 4936454890) 0.63 mg/dL 0.60-1.25 TOTAL BILI (test code = 9400899083) 0.7 mg/dL 0.1-1.1 CALCIUM (test code = 2711475177) 9.6 mg/dL 8.6-10.6 T PROTEIN (test code = 9694449393) 9.0 g/dL 6.3-8.2 H ALBUMIN (test code = 4505648727) 5.0 g/dL 3.5-5.0 ALK PHOS (test code = 3958109944) 73 U/L 34-122 ALTv (test code = 1742-6) 33 U/L 5-50 AST(SGOT) (test code = 8564117200) 33 U/L 13-40 eGFR (test code = 03882-6) 118.8 mL/min/1.73m2 CKD-EPI eGFR (2020). Assuming creatinine has been stable day-to-day for at least three months, the eGFR indicates Category G1 (>= 90 mL/min/1.73 m2) Lab Interpretation (test code = 45662-1) [facility] [id number] 06:29:13* Test Item Value Reference Range Interpretation Comme nts LIPASE (test code = 3785856919) 89 U/L 0-220 Lab Interpretation (test cod e = 27418-6) [facility] with [id number] 06:17:56* Test Item Value Reference Range Interpretation Comme nts WBC (test code = 6690-2) 11.54 See_Comment H [Automated Intent [employer]] The system which generated this result transmitted reference range: 4.20 - 10.70 10*3/?L. The reference range was not used to interpret this result as normal/abnormal. RBC (test code = 789-8) 5.24 See_Comment [Automated Intent [employer]] The system which generated this result transmitted [...] 33.9 g/dL 31.2-35.0 RDW-SD (test code = 37253-2) 46.6 fL 38.5-51.6 RDW-CV (test code = 788-0) 14.0 % 12.1-15.4 PLT (test code = 777-3) 312 See_Comment [Automated Intent [employer]] The system which generated this result transmitted reference range: 150 - 328 10*3/?L. The reference range was not used to interpret this result as normal/abnormal. MPV (test code = 03747-1) 9.7 fL 9.8-13.0 L NRBC/100 WBC (test code = 7849264219) 0.0 See_Comment [Automated me ssage] The system which generated this result transmitted reference range: 0.0 - 10.0 /100 WBCs. The reference range was not used to interpret this result as normal/abnormal. NRBC x10^3 (test code = 8133009914) See_Comment [Automated messa ge] The system which generated this result transmitted reference range: 10*3/?L. The reference range was not used to interpret this result as normal/abnormal. GRAN MAT (NEUT) % (test code = 770-8) 54.9 % IMM GRAN % (test code = 5527314854) 0.30 % LYMPH % (test code = 736-9) 36.0 % MONO % (test code = 5905-5) 6.3 % EOS % (test code = 713-8) 1.6 % BASO % (test code = 706-2) 0.9 % GRAN MAT x10^3(ANC) (test code = 4235066752) 6.35 10*3/uL 1.99-6.95 IMM GRAN x10^3 (test code = 0629078771) 0.03 10*3/uL 0.00-0.06 LYMPH x10^3 (test code = 731-0) 4.15 10*3/uL 1.09-3.23 H MONO x10^3 (test code = 742-7) 0.73 10*3/uL 0.36-1.02 EOS x10^3 (test code = 711-2) 0.18 10*3/uL 0.06-0.53 BASO x10^3 (test code = 704-7) 0.10 10*3/uL 0.01-0.09 H Lab Interpretation (test code = 96591-6) Abnormal [facility] GLUCOSE (AUTOMATED)2023-11-01 05:42:28* Test Item Value Reference Range Interpretation Comme nts POCT GLU (test code = 3105860652) 110 mg/dL 70-110 Lab Interpretation (test cod e = 53987-6) Normal [facility] ABDOMEN PELVIS W [id number] 07:44:05Ordering physician: CHAPITO CONTRERAS Indication: Acute right [...] lesion. 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 The reference range was not used to interpret this result as normal/abnormal. RBC (test code = 789-8) 5.23 See_Comment [Automated [employer]] The system which generated this result transmitted [...] 33.9 g/dL 31.2-35.0 RDW-SD (test code = 73920-9) 45.0 fL 38.5-51.6 RDW-CV (test code = 788-0) 13.6 % 12.1-15.4 PLT (test code = 777-3) 307 See_Comment [Automated Intent HQa ge] The system which generated this result transmitted reference range: 150 - 328 10*3/?L. The reference range was not used to interpret this result as normal/abnormal. MPV (test code = 91180-4) 9.3 fL 9.8-13.0 L NRBC/100 WBC (test code = 2942824438) 0.0 See_Comment [Automated [employer] ssage] The system which generated this result transmitted reference range: 0.0 - 10.0 /100 WBCs. The reference range was not used to interpret this result as normal/abnormal. NRBC x10^3 (test code = 5502433343) See_Comment [Automated Intent HQa ge] The system which generated this result transmitted reference range: 10*3/?L. The reference range was not used to interpret this result as normal/abnormal. SEG % (test code = 96713-1) 49 % 33-76 LYMPH % (test code = 73617-1) 40 % 14-54 MONO % (test code = 12513-3) 4 % 0-4 EOS % (test code = 31421-7) 7 % 0-3 H ANC (test code = 753-4) 5.81 10*3/uL 1.99-6.95 Lab Interpretation (test code = 77784-5) [facility] Vnyid9130-78-44 06:32:13* Test Item Value Reference Range Interpretation Comme nts NA (test code = 0003702717) 140 mmol/L 135-145 K (test code = 0565325516) 3.7 mmol/L 3.5-5.0 CL (test code = 8807449443) 105 mmol/L 98-108 CO2 TOTAL (test code = 4409456981) 23 mmol/L 23-31 AGAP (test code = 4711958040) 12 2-16 BUN (test code = 1919522458) 15 mg/dL 7-23 GLUCOSE (test code = 9111327706) 126 mg/dL 70-110 H CREATININE (test code = 4052880478) 0.89 mg/dL 0.60-1.25 TOTAL BILI (test code = 3655652973) 0.6 mg/dL 0.1-1.1 CALCIUM (test code = 3273979098) 9.5 mg/dL 8.6-10.6 T PROTEIN (test code = 9789528695) 8.6 g/dL 6.3-8.2 H ALBUMIN (test code = 0395249466) 4.7 g/dL 3.5-5.0 ALK PHOS (test code = 0163292594) 84 U/L 34-122 ALTv (test code = 1742-6) 38 U/L 5-50 AST(SGOT) (test code = 9821513028) 33 U/L 13-40 eGFR (test code = 48439-2) 107.0 mL/min/1.73m2 CKD-EPI eGFR (2020). Assuming creatinine has been stable day-to-day for at least three months, the eGFR indicates Category G1 (>= 90 mL/min/1.73 m2) Lab Interpretation (test code = 25161-8) Abnormal [facility] Hospital[facility], Ombje9246-23-97 06:31:52* Test Item Value Reference Range Interpretation Comme nts LIPASE (test code = 5705312225) 80 U/L 0-220 Lab Interpretation (test cod e = 56985-2) Normal [facility] (NA, K, CL, CO2, GLUCOSE, BUN, CREATININE, CA)2023-09-26 06:00:26* Test Item Value Reference Range Interpretation Comme nts NA (test code = 7121866925) 139 mmol/L 135-145 K (test code = 3673323868) 3.9 mmol/L 3.5-5.0 CL (test code = 9003227633) 104 mmol/L 98-108 CO2 TOTAL (test code = 5757173698) 25 mmol/L 23-31 AGAP (test code = 9175303803) 10 2-16 BUN (test code = 5813894917) 14 mg/dL 7-23 GLUCOSE (test code = 6621915466) 109 mg/dL 70-110 CREATININE (test code = 3462402335) 0.77 mg/dL 0.60-1.25 CALCIUM (test code = 5680052372) 10.4 mg/dL 8.6-10.6 eGFR (test code = 14263-4) 112.5 mL/min/1.73m2 CKD-EPI eGFR (20 21). Assuming creatinine has been stable day-to-day for at least three months, the eGFR indicates Category G1 (>= 90 mL/min/1.73 m2) [facility]AT[facility] PAN[facility] (77468) (ALB,T.PRO,BILI T,BU/BC,ALT,AST,ALK PHOS)2023-09-26 06:00:26* Test Item Value Reference Range Interpretation Comme nts TOTAL BILI (test code = 5821456152) 0.6 mg/dL 0.1-1.1 BILI UNCON (test code = 3308714114) 0.4 mg/dL 0.1-1.1 BILI CONJ (test code = 8740080774) 0.0 mg/dL 0.0-0.3 T PROTEIN (test code = 0469181547) 8.6 g/dL 6.3-8.2 H ALBUMIN (test code = 3996007176) 4.7 g/dL 3.5-5.0 ALK PHOS (test code = 7998833473) 91 U/L 34-122 ALTv (test code = 1742-6) 40 U/L 5-50 AST(SGOT) (test code = 3756552955) 27 U/L 13-40 Lab Interpretation (test cod e = 53502-5) Abnormal [facility]23-[facility] 06:00:25* Test Item Value Reference Range Interpretation Comme nts LIPASE (test code = 4351593084) 73 U/L 0-220 Lab Interpretation (test cod e = 72703-8) Normal [facility]CBC WITH [id number] 05:50:26* Test Item Value Reference Range Interpretation Comme nts WBC (test code = 6690-2) 10.08 See_Comment [Automated Intent HQa [employer]] The system which generated this result transmitted reference range: 4.20 - 10.70 10*3/?L. The reference range was not used to interpret this result as normal/abnormal. RBC (test code = 789-8) 5.24 See_Comment [Automated Intent HQa ge] The system which generated this result [...] 33.8 g/dL 31.2-35.0 RDW-SD (test code = 97622-1) 44.0 fL 38.5-51.6 RDW-CV (test code = 788-0) 13.1 % 12.1-15.4 PLT (test code = 777-3) 317 See_Comment [Automated messa ge] The system which generated this result transmitted reference range: 150 - 328 10*3/?L. The reference range was not used to interpret this result as normal/abnormal. MPV (test code = 86297-8) 9.6 fL 9.8-13.0 L NRBC/100 WBC (test code = 4888371848) 0.0 See_Comment [Automated [employer] ssage] The system which generated this result transmitted reference range: 0.0 - 10.0 /100 WBCs. The reference range was not used to interpret this result as normal/abnormal. NRBC x10^3 (test code = 4106389120) See_Comment [Automated messa ge] The system which generated this result transmitted reference range: 10*3/?L. The reference range was not used to interpret this result as normal/abnormal. GRAN MAT (NEUT) % (test code = 770-8) 50.9 % IMM GRAN % (test code = 2962268336) 0.30 % LYMPH % (test code = 736-9) 38.3 % MONO % (test code = 5905-5) 7.5 % EOS % (test code = 713-8) 2.2 % BASO % (test code = 706-2) 0.8 % GRAN MAT x10^3(ANC) (test code = 1637605435) 5.13 10*3/uL 1.99-6.95 IMM GRAN x10^3 (test code = 1593877728) 0.03 10*3/uL 0.00-0.06 LYMPH x10^3 (test code = 731-0) 3.86 10*3/uL 1.09-3.23 H MONO x10^3 (test code = 742-7) 0.76 10*3/uL 0.36-1.02 EOS x10^3 (test code = 711-2) 0.22 10*3/uL 0.06-0.53 BASO x10^3 (test code = 704-7) 0.08 10*3/uL 0.01-0.09 Lab Interpretation (test code = 99396-9) Abnormal [facility] HospitalTROP[facility]IN [id number] 05:30:49* Test Item Value Reference Range Interpretation Comme nts TROPONIN I (test code = 1575302967) 0.001 ng/mL <=0.034 LAURIE (test code = [...] of biotin. Lab Interpretation (test code = 84634-0) Normal [facility]. METABOLIC PANEL (07606)2023-08-24 05:19:05* Test Item Value Reference Range Interpretation Comme nts NA (test code = 1258216286) 138 mmol/L 135-145 K (test code = 8928887834) 4.3 mmol/L 3.5-5.0 CL (test code = 3180094531) 100 mmol/L 98-108 CO2 TOTAL (test code = 1984070963) 25 mmol/L 23-31 AGAP (test code = 4365093179) 13 2-16 BUN (test code = 7909004671) 15 mg/dL 7-23 GLUCOSE (test code = 0087292202) 198 mg/dL 70-110 H CREATININE (test code = 9253306445) 0.86 mg/dL 0.60-1.25 TOTAL BILI (test code = 7974365701) 0.3 mg/dL 0.1-1.1 CALCIUM (test code = 4168330203) 10.3 mg/dL 8.6-10.6 T PROTEIN (test code = 3120400924) 8.6 g/dL 6.3-8.2 H ALBUMIN (test code = 0326595289) 4.5 g/dL 3.5-5.0 ALK PHOS (test code = 3930579987) 94 U/L 34-122 ALTv (test code = 1742-6) 44 U/L 5-50 AST(SGOT) (test code = 2990440920) 28 U/L 13-40 eGFR (test code = 57613-9) 108.8 mL/min/1.73m2 CKD-EPI eGFR (2020). Assuming creatinine has been stable day-to-day for at least three months, the eGFR indicates Category G1 (>= 90 mL/min/1.73 m2) Lab Interpretation (test code = 85992-9) Abnormal [facility] WITH [id number] 05:01:26* Test Item Value Reference Range Interpretation Comme nts WBC (test code = 6690-2) 10.38 See_Comment [Automated [employer]] The system which generated this result transmitted reference range: 4.20 - 10.70 10*3/?L. The reference range was not used to interpret this result as normal/abnormal. RBC (test code = 789-8) 5.08 See_Comment [Automated [employer]] The system which generated this result transmitted [...] 33.5 g/dL 31.2-35.0 RDW-SD (test code = 92567-1) 43.8 fL 38.5-51.6 RDW-CV (test code = 788-0) 13.0 % 12.1-15.4 PLT (test code = 777-3) 298 See_Comment [Automated messa ge] The system which generated this result transmitted reference range: 150 - 328 10*3/?L. The reference range was not used to interpret this result as normal/abnormal. MPV (test code = 59493-6) 10.0 fL 9.8-13.0 NRBC/100 WBC (test code = 9306073722) 0.0 See_Comment [Automated [employer] ssage] The system which generated this result transmitted reference range: 0.0 - 10.0 /100 WBCs. The reference range was not used to interpret this result as normal/abnormal. NRBC x10^3 (test code = 7101352642) See_Comment [Automated messa ge] The system which generated this result transmitted reference range: 10*3/?L. The reference range was not used to interpret this result as normal/abnormal. GRAN MAT (NEUT) % (test code = 770-8) 52.4 % IMM GRAN % (test code = 5428308496) 0.30 % LYMPH % (test code = 736-9) 36.6 % MONO % (test code = 5905-5) 7.2 % EOS % (test code = 713-8) 2.6 % BASO % (test code = 706-2) 0.9 % GRAN MAT x10^3(ANC) (test code = 7425390379) 5.44 10*3/uL 1.99-6.95 IMM GRAN x10^3 (test code = 6668836624) 0.03 10*3/uL 0.00-0.06 LYMPH x10^3 (test code = 731-0) 3.80 10*3/uL 1.09-3.23 H MONO x10^3 (test code = 742-7) 0.75 10*3/uL 0.36-1.02 EOS x10^3 (test code = 711-2) 0.27 10*3/uL 0.06-0.53 BASO x10^3 (test code = 704-7) 0.09 10*3/uL 0.01-0.09 Lab Interpretation (test code = 25491-0) Abnormal [facility] GLUCOSE (AUTOMATED)2023-05-26 02:18:34* Test Item Value Reference Range Interpretation Comme nts POCT GLU (test code = 7605853190) 173 mg/dL 70-110 H Lab Interpretation (test cod e = 33972-0) Abnormal [facility] GLUCOSE(AGE >30DAYS)2023-05-26 02:17:00* Test Item Value Reference Range Interpretation Comme nts POCT Glu (age>30days) (test code = 3342) 173 mg/dL 70-110 A Lab Interpretation (test cod e = 97938-9) [facility]normal [facility]TR[facility] [id number] 01:41:57* Test Item Value Reference Range Interpretation Comme nts TROPONIN I (test code = 5945848109) 0.008 ng/mL <=0.034 LAURIE (test code = [...] of biotin. Lab Interpretation (test code = 19845-1) Normal [facility] GLUCOSE (AUTOMATED)2023-05-26 01:23:43* Test Item Value Reference Range Interpretation Comme nts POCT GLU (test code = 4930782088) 185 mg/dL 70-110 H Lab Interpretation (test cod e = 45360-6) Abnormal [facility]N-TERMINAL UDE-LMP3356-79-07 00:40:36* Test Item Value Reference Range Interpretation Comme nts NT-proBNP (test code = 21994-8) <=125 Lab Interpretation (test cod e = 51429-8) Normal [facility]TR[facility] [id number] 00:06:55* Test Item Value Reference Range Interpretation Comme nts TROPONIN I (test code = 8167728406) 0.003 ng/mL <=0.034 LAURIE (test code = [...] of biotin. Lab Interpretation (test code = 53096-2) Normal [facility]MAGNESIUM2023-08-06 23:56:12* Test Item Value Reference Range Interpretation Comme nts MAGNESIUM (test code = 9432836661) 2.0 mg/dL 1.7-2.4 Lab Interpretation (test cod e = 92802-8) Normal [facility] MET[facility]OLIC PANEL (74668)2023-05-25 23:55:52* Test Item Value Reference Range Interpretation Comme nts NA (test code = 6472622132) 138 mmol/L 135-145 K (test code = 9335152839) 4.3 mmol/L 3.5-5.0 CL (test code = 5223774353) 103 mmol/L 98-108 CO2 TOTAL (test code = 3058122568) 22 mmol/L 23-31 L AGAP (test code = 9377850895) 13 2-16 BUN (test code = 6705475385) 22 mg/dL 7-23 GLUCOSE (test code = 0711706209) 274 mg/dL 70-110 H CREATININE (test code = 5525320331) 0.79 mg/dL 0.60-1.25 TOTAL BILI (test code = 8288068880) 0.6 mg/dL 0.1-1.1 CALCIUM (test code = 3438472297) 9.2 mg/dL 8.6-10.6 T PROTEIN (test code = 5802821780) 8.4 g/dL 6.3-8.2 H ALBUMIN (test code = 5954001652) 4.5 g/dL 3.5-5.0 ALK PHOS (test code = 1312269067) 88 U/L 34-122 ALTv (test code = 1742-6) 48 U/L 5-50 AST(SGOT) (test code = 9177462445) 37 U/L 13-40 eGFR (test code = 2968079399) 106.1 mL/min/1.73m2 LAURIE (test code = LAURIE) [...] imaging tests). Lab Interpretation (test code = 85690-8) Abnormal [facility]2023-[facility] 23:55:32* Test Item Value Reference Range Interpretation Comme nts LIPASE (test code = 6303962909) 154 U/L 0-220 Lab Interpretation (test cod e = 66888-7) Normal [facility] WITH [id number] 23:33:34* Test Item Value Reference Range Interpretation [...] 33.7 g/dL 31.2-35.0 RDW-SD (test code = 10450-4) 45.4 fL 38.5-51.6 RDW-CV (test code = 788-0) 13.4 % 12.1-15.4 PLT (test code = 777-3) 286 See_Comment [Automated messa ge] The system which generated this result transmitted reference range: 150 - 328 10*3/?L. The reference range was not used to interpret this result as normal/abnormal. MPV (test code = 09845-2) 10.2 fL 9.8-13.0 NRBC/100 WBC (test code = 4659555387) 0.0 See_Comment [Automated me ssage] The system which generated this result transmitted reference range: 0.0 - 10.0 /100 WBCs. The reference range was not used to interpret this result as normal/abnormal. NRBC x10^3 (test code = 2486792150) See_Comment [Automated me ssage] The system which generated this result transmitted reference range: 10*3/?L. The reference range was not used to interpret this result as normal/abnormal. GRAN MAT (NEUT) % (test code = 770-8) 57.3 % IMM GRAN % (test code = 3177308530) 0.40 % LYMPH % (test code = 736-9) 32.6 % MONO % (test code = 5905-5) 6.8 % EOS % (test code = 713-8) 1.9 % BASO % (test code = 706-2) 1.0 % GRAN MAT x10^3(ANC) (test code = 9309151873) 5.34 10*3/uL 1.99-6.95 IMM GRAN x10^3 (test code = 2021986517) 0.04 10*3/uL 0.00-0.06 LYMPH x10^3 (test code = 731-0) 3.04 10*3/uL 1.09-3.23 MONO x10^3 (test code = 742-7) 0.63 10*3/uL 0.36-1.02 EOS x10^3 (test code = 711-2) 0.18 10*3/uL 0.06-0.53 BASO x10^3 (test code = 704-7) 0.09 10*3/uL 0.01-0.09 [facility] with Xybxigokxajc9501-70-78 07:42:13* Test Item Value Reference Range Interpretation [...] 33.3 g/dL 31.2-35.0 RDW-SD (test code = 17688-4) 44.4 fL 38.5-51.6 RDW-CV (test code = 788-0) 13.6 % 12.1-15.4 PLT (test code = 777-3) 187 See_Comment [Automated messa ge] The system which generated this result transmitted reference range: 150 - 328 10*3/?L. The reference range was not used to interpret this result as normal/abnormal. MPV (test code = 30177-7) 10.4 fL 9.8-13.0 NRBC/100 WBC (test code = 6171776841) 0.0 See_Comment [Automated [employer] ssage] The system which generated this result transmitted reference range: 0.0 - 10.0 /100 WBCs. The reference range was not used to interpret this result as normal/abnormal. NRBC x10^3 (test code = 8001327734) See_Comment [Automated Intent HQa ge] The system which generated this result transmitted reference range: 10*3/?L. The reference range was not used to interpret this result as normal/abnormal. GRAN MAT (NEUT) % (test code = 770-8) 55.0 % IMM GRAN % (test code = 8072897498) 0.50 % LYMPH % (test code = 736-9) 34.8 % MONO % (test code = 5905-5) 6.5 % EOS % (test code = 713-8) 2.5 % BASO % (test code = 706-2) 0.7 % GRAN MAT x10^3(ANC) (test code = 4259647078) 5.95 10*3/uL 1.99-6.95 IMM GRAN x10^3 (test code = 7083289678) 0.05 10*3/uL 0.00-0.06 LYMPH x10^3 (test code = 731-0) 3.77 10*3/uL 1.09-3.23 H MONO x10^3 (test code = 742-7) 0.70 10*3/uL 0.36-1.02 EOS x10^3 (test code = 711-2) 0.27 10*3/uL 0.06-0.53 BASO x10^3 (test code = 704-7) 0.08 10*3/uL 0.01-0.09 Lab Interpretation (test code = 82521-9) [facility]normal [facility] Met[facility] Yeajv9138-23-42 07:32:47* Test Item Value Reference Range Interpretation Comme nts NA (test code = 0690456357) 136 mmol/L 135-145 K (test code = 2499083162) 4.2 mmol/L 3.5-5.0 CL (test code = 0617683111) 104 mmol/L 98-108 CO2 TOTAL (test code = 3920983552) 21 mmol/L 23-31 L AGAP (test code = 0430872220) 11 2-16 BUN (test code = 6047012139) 17 mg/dL 7-23 GLUCOSE (test code = 4964190681) 125 mg/dL 70-110 H CREATININE (test code = 9134031611) 0.63 mg/dL 0.60-1.25 TOTAL BILI (test code = 4211362132) 0.3 mg/dL 0.1-1.1 CALCIUM (test code = 3697293144) 9.3 mg/dL 8.6-10.6 T PROTEIN (test code = 3714336143) 7.8 g/dL 6.3-8.2 ALBUMIN (test code = 5620927860) 4.5 g/dL 3.5-5.0 ALK PHOS (test code = 8943731041) 97 U/L 34-122 ALTv (test code = 1742-6) 42 U/L 5-50 AST(SGOT) (test code = 6592780057) 34 U/L 13-40 eGFR (test code = 6270844597) 137.7 mL/min/1.73m2 LAURIE (test code = LAURIE) [...] imaging tests). Lab Interpretation (test code = 55156-8) [facility]normal [facility] Hospital[facility], Bqwwb2788-53-91 07:31:52* Test Item Value Reference Range Interpretation Comme [facility] LIPASE (test code = 2150563483) 73 U/L 0-220 Lab Interpretation (test cod e = 94865-0) Normal [facility] HospitalTHYROID STIMULATING RHFRLPF1282-38-37 18:17:21 * Test Item Value Reference Range Interpretation Comme nts TSH (test code = 9020967406) See_Comment H [Automated Intent HQa [employer]] The system which generated this result transmitted reference range: 0.45 - 4.70 mIU/L. The reference range was not used to interpret this result as normal/abnormal. Lab Interpretation (test code = 78742-6) Abnormal [facility] HospitalFREE [id number] 16:53:41* Test Item Value Reference Range Interpretation Comme nts FREE T4 (test code = 0055295252) See_Comment L [Automated Intent HQa [employer]] The system which generated this result transmitted reference range: 0.78 - 2.20 ng/dL:. The reference range was not used to interpret this result as normal/abnormal. Lab Interpretation (test code = 81375-5) Abnormal [facility] [id number] 16:53:04* Test Item Value Reference Range Interpretation Comme nts FREE T3 (test code = 6439855262) 1.50 pg/mL 2.77-5.27 L Lab Interpretation (test cod e = 40856-1) Abnormal [facility]. METABOLIC PANEL (04707)2022-05-28 16:37:03* Test Item Value Reference Range Interpretation Comme nts NA (test code = 6492649240) 138 mmol/L 135-145 K (test code = 9453323629) 4.4 mmol/L 3.5-5 CL (test code = 4794538179) 101 mmol/L 98-108 CO2 TOTAL (test code = 6236727993) 27 mmol/L 23-31 AGAP (test code = 2482385883) 2-16 BUN (test code = 7685916992) 14 mg/dL 7-23 GLUCOSE (test code = 6076238269) 102 mg/dL 70-110 CREATININE (test code = 2892856505) 0.82 mg/dL 0.6-1.25 TOTAL BILI (test code = 4650181995) 0.5 mg/dL 0.1-1.1 CALCIUM (test code = 6342990943) 9.3 mg/dL 8.6-10.6 T PROTEIN (test code = 3709125254) 8.3 g/dL 6.3-8.2 H ALBUMIN (test code = 8563038082) 4.8 g/dL 3.5-5 ALK PHOS (test code = 6821964440) 75 U/L 34-122 ALTv (test code = 1742-6) 56 U/L 5-50 H AST(SGOT) (test code = 9837399869) 42 U/L 13-40 H eGFR (test code = 6563968302) mL/min/1.73m2 LAURIE (test code = LAURIE) Association [...] imaging tests). Lab Interpretation (test code = 26081-7) Abnormal [facility] WITH [id number] 16:25:38* Test Item Value Reference Range Interpretation Comme nts WBC (test code = 6690-2) See_Comment [Adiana] The system which generated this result transmitted reference range: 4.20 - 10.70 10*3/?L. The reference range was not used to interpret this result as normal/abnormal. RBC (test code = 789-8) See_Comment [Adiana] The system which generated this result transmitted [...] 33.0 g/dL 31.2-35 RDW-SD (test code = 36248-8) 48.1 fL 38.5-51.6 RDW-CV (test code = 788-0) 14.2 % 12.1-15.4 PLT (test code = 777-3) See_Comment [Automated Intent HQa ge] The system which generated this result transmitted reference range: 150 - 328 10*3/?L. The reference range was not used to interpret this result as normal/abnormal. MPV (test code = 06622-2) 9.5 fL 9.8-13 L NRBC/100 WBC (test code = 7630121317) See_Comment [Automated [employer] ssage] The system which generated this result transmitted reference range: 0.0 - 10.0 /100 WBCs. The reference range was not used to interpret this result as normal/abnormal. NRBC x10^3 (test code = 6386570523) See_Comment [Automated Intent HQa ge] The system which generated this result transmitted reference range: 10*3/?L. The reference range was not used to interpret this result as normal/abnormal. GRAN MAT (NEUT) % (test code = 770-8) 56.3 % IMM GRAN % (test code = 1945740609) 0.70 % LYMPH % (test code = 736-9) 32.8 % MONO % (test code = 5905-5) 6.2 % EOS % (test code = 713-8) 2.7 % BASO % (test code = 706-2) 1.3 % GRAN MAT x10^3(ANC) (test code = 3284378026) 4.87 10*3/uL 1.99-6.95 IMM GRAN x10^3 (test code = 8262505036) 0.06 10*3/uL 0-0.06 LYMPH x10^3 (test code = 731-0) 2.84 10*3/uL 1.09-3.23 MONO x10^3 (test code = 742-7) 0.54 10*3/uL 0.36-1.02 EOS x10^3 (test code = 711-2) 0.23 10*3/uL 0.06-0.53 BASO x10^3 (test code = 704-7) 0.11 10*3/uL 0.01-0.09 H Lab Interpretation (test code = 89842-5) [facility] 06:03:53* Test Item Value Reference Range Interpretation Comme nts MAGNESIUM (test code = 8321406812) 1.8 mg/dL 1.7-2.4 Lab Interpretation (test cod e = 65675-1) Normal [facility]TR[facility] [id number] 06:00:52* Test Item Value Reference Range Interpretation Comments TROPONIN I (test code = 0164234087) 0.002 ng/mL See_Comment [Automated message] The system [...] of biotin. Lab Interpretation (test code = 07980-5) Normal [facility]OLIC PANEL (02933)2022-05-06 05:49:11* Test Item Value Reference Range Interpretation Comme nts NA (test code = 1975989906) 136 mmol/L 135-145 K (test code = 4702111311) 4.4 mmol/L 3.5-5 CL (test code = 8794635766) 100 mmol/L 98-108 CO2 TOTAL (test code = 3269950760) 23 mmol/L 23-31 AGAP (test code = 1456821671) 2-16 BUN (test code = 8575411692) 16 mg/dL 7-23 GLUCOSE (test code = 8768678024) 116 mg/dL 70-110 H CREATININE (test code = 6836650532) 0.81 mg/dL 0.6-1.25 TOTAL BILI (test code = 5413523082) 0.6 mg/dL 0.1-1.1 CALCIUM (test code = 6896945518) 10.3 mg/dL 8.6-10.6 T PROTEIN (test code = 4183875883) 9.2 g/dL 6.3-8.2 H ALBUMIN (test code = 1400036498) 5.3 g/dL 3.5-5 H ALK PHOS (test code = 6296327040) 89 U/L 34-122 ALTv (test code = 1742-6) 44 U/L 5-50 AST(SGOT) (test code = 6580110486) 36 U/L 13-40 eGFR (test code = 6854437241) mL/min/1.73m2 LAURIE (test code = LAURIE) Association [...] imaging tests). Lab Interpretation (test code = 05951-4) [facility]48:51* Test Item Value Reference Range Interpretation Comme nts LIPASE (test code = 8624824859) 67 U/L 0-220 Lab Interpretation (test cod e = 97852-2) [facility] [id number] 05:36:33* Test Item Value Reference Range Interpretation [...] 34.1 g/dL 31.2-35 RDW-SD (test code = 63196-4) 45.9 fL 38.5-51.6 RDW-CV (test code = 788-0) 13.9 % 12.1-15.4 PLT (test code = 777-3) See_Comment [Automated messa ge] The system which generated this result transmitted reference range: 150 - 328 10*3/?L. The reference range was not used to interpret this result as normal/abnormal. MPV (test code = 24111-5) 9.5 fL 9.8-13 L NRBC/100 WBC (test code = 5982646857) See_Comment [Automated [employer] ssage] The system which generated this result transmitted reference range: 0.0 - 10.0 /100 WBCs. The reference range was not used to interpret this result as normal/abnormal. NRBC x10^3 (test code = 2903588492) See_Comment [Automated Intent HQa ge] The system which generated this result transmitted reference range: 10*3/?L. The reference range was not used to interpret this result as normal/abnormal. GRAN MAT (NEUT) % (test code = 770-8) 60.3 % IMM GRAN % (test code = 0726212560) 0.80 % LYMPH % (test code = 736-9) 27.6 % MONO % (test code = 5905-5) 6.8 % EOS % (test code = 713-8) 3.5 % BASO % (test code = 706-2) 1.0 % GRAN MAT x10^3(ANC) (test code = 1272549415) 6.95 10*3/uL 1.99-6.95 IMM GRAN x10^3 (test code = 0778713219) 0.09 10*3/uL 0-0.06 H LYMPH x10^3 (test code = 731-0) 3.19 10*3/uL 1.09-3.23 MONO x10^3 (test code = 742-7) 0.79 10*3/uL 0.36-1.02 EOS x10^3 (test code = 711-2) 0.40 10*3/uL 0.06-0.53 BASO x10^3 (test code = 704-7) 0.12 10*3/uL 0.01-0.09 H Lab Interpretation (test code = 41555-4) Abnormal [facility]. METABOLIC PANEL ([id number])2022-05-01 13:28:01* Test Item Value Reference Range Interpretation Comme nts NA (test code = 0781050819) 139 mmol/L 135-145 K (test code = 6197401005) 4.7 mmol/L 3.5-5 CL (test code = 3216039830) 104 mmol/L 98-108 CO2 TOTAL (test code = 4770912216) 23 mmol/L 23-31 AGAP (test code = 5639246988) 2-16 BUN (test code = 3942070198) 14 mg/dL 7-23 GLUCOSE (test code = 5748448815) 128 mg/dL 70-110 H CREATININE (test code = 5895571791) 0.62 mg/dL 0.6-1.25 TOTAL BILI (test code = 1801490842) 0.4 mg/dL 0.1-1.1 CALCIUM (test code = 7405197558) 9.2 mg/dL 8.6-10.6 T PROTEIN (test code = 3459357263) 8.1 g/dL 6.3-8.2 ALBUMIN (test code = 6960143810) 4.6 g/dL 3.5-5 ALK PHOS (test code = 1605703024) 92 U/L 34-122 ALTv (test code = 1742-6) 43 U/L 5-50 AST(SGOT) (test code = 9439159579) 30 U/L 13-40 eGFR (test code = 1110094419) mL/min/1.73m2 LAURIE (test code = LAURIE) Association [...] imaging tests). Lab Interpretation (test code = 34398-8) Abnormal [facility] WITH [id number] 13:20:02* Test Item Value Reference Range Interpretation [...] 32.8 g/dL 31.2-35 RDW-SD (test code = 65274-7) 47.5 fL 38.5-51.6 RDW-CV (test code = 788-0) 14.1 % 12.1-15.4 PLT (test code = 777-3) See_Comment [Automated messa ge] The system which generated this result transmitted reference range: 150 - 328 10*3/?L. The reference range was not used to interpret this result as normal/abnormal. MPV (test code = 31200-2) 9.3 fL 9.8-13 L NRBC/100 WBC (test code = 6581192992) See_Comment [Automated [employer] ssage] The system which generated this result transmitted reference range: 0.0 - 10.0 /100 WBCs. The reference range was not used to interpret this result as normal/abnormal. NRBC x10^3 (test code = 6017915598) See_Comment [Automated messa ge] The system which generated this result transmitted reference range: 10*3/?L. The reference range was not used to interpret this result as normal/abnormal. GRAN MAT (NEUT) % (test code = 770-8) 58.9 % IMM GRAN % (test code = 0434281676) 0.60 % LYMPH % (test code = 736-9) 29.2 % MONO % (test code = 5905-5) 6.8 % EOS % (test code = 713-8) 3.5 % BASO % (test code = 706-2) 1.0 % GRAN MAT x10^3(ANC) (test code = 6023988384) 5.80 10*3/uL 1.99-6.95 IMM GRAN x10^3 (test code = 6233570804) 0.06 10*3/uL 0-0.06 LYMPH x10^3 (test code = 731-0) 2.87 10*3/uL 1.09-3.23 MONO x10^3 (test code = 742-7) 0.67 10*3/uL 0.36-1.02 EOS x10^3 (test code = 711-2) 0.34 10*3/uL 0.06-0.53 BASO x10^3 (test code = 704-7) 0.10 10*3/uL 0.01-0.09 H Lab Interpretation (test code = 82314-2) [id number] 07:04:38* Test Item Value Reference Range Interpretation Comments TROPONIN I (test code = 0112116403) 0.002 ng/mL See_Comment [Automated message] The system [...] of biotin. Lab Interpretation (test code = 25177-7) Normal [facility] [id number] 07:00:14* Test Item Value Reference Range Interpretation Comme nts NT-proBNP (test code = 0875193708) 25 pg/mL See_Comment [Automated message] The system which generated this result transmitted reference range: <=125. The reference range was not used to interpret this result as normal/abnormal. LAURIE (test code = LAURIE) Biotin has been reported to cause a negative bias, interpret results relative to patient's use of biotin. Lab Interpretation (test code = 04813-8) Normal [facility]22-[facility] 06:53:02* Test Item Value Reference Range Interpretation Comme nts ALCOHOL (test code = 2774935399) <10 mg/dL LAURIE (test code = LAURIE) <10 [id number] Toxic>100 Depression of GROCERY CASHIER>400 Fatalities Reported [facility] 06:50:57* Test Item Value Reference Range Interpretation Comme nts LIPASE (test code = 8769588044) 65 U/L 0-220 Lab Interpretation (test cod e = 16184-2) [facility]OL[facility] (11027)2022-02-08 06:50:57* Test Item Value Reference Range Interpretation Comme nts NA (test code = 5288580883) 138 mmol/L 135-145 K (test code = 0975581999) 4.3 mmol/L 3.5-5.0 CL (test code = 9085711535) 103 mmol/L 98-108 CO2 TOTAL (test code = 5078474362) 23 mmol/L 23-31 AGAP (test code = 5749839676) 2-16 BUN (test code = 9866496698) 14 mg/dL 7-23 GLUCOSE (test code = 7124722988) 142 mg/dL 70-110 H CREATININE (test code = 3227021236) 0.60 mg/dL 0.60-1.25 TOTAL BILI (test code = 4093414512) 0.5 mg/dL 0.1-1.1 CALCIUM (test code = 9620764584) 9.1 mg/dL 8.6-10.6 T PROTEIN (test code = 1653217019) 7.9 g/dL 6.3-8.2 ALBUMIN (test code = 1989729288) 4.5 g/dL 3.5-5.0 ALK PHOS (test code = 9147142309) 81 U/L 34-122 ALTv (test code = 1742-6) 28 U/L 5-50 AST(SGOT) (test code = 9784667776) 24 U/L 13-40 eGFR (test code = 1718812904) mL/min/1.73m2 LAURIE (test code = LAURIE) Association [...] imaging tests). Lab Interpretation (test code = 11312-1) Abnormal [facility]ACT[facility] THRMPLAS [id number] 06:47:31* Test Item Value Reference Range Interpretation Comme nts APTT Patient (test code = 3173-2) See_Comment [Automated message] The system which generated this result transmitted reference range: 23 - 38 Seconds. The reference range was not used to interpret this result as normal/abnormal. LAURIE (test code = LAURIE) [facility] mean normal value for aPTT is 30 seconds. Lab Interpretation (test code = 10884-8) Normal [facility] HospitalPROTHROMBIN TIME / [id number] 06:45:33* Test Item Value Reference Range Interpretation Comme nts PROTIME PATIENT (test code = 5964-2) See_Comment [Automated Intent HQa ge] The system which generated this result transmitted reference range: 12.0 - 14.7 Seconds. The reference range was not used to interpret this result as normal/abnormal. INR (test code = 6301-6) Normal INR <1.1; Warfarin Therapeutic range 2.0 to 3.0 or 2.5 to 3.5, depending upon the indications. Lab Interpretation (test code = 46672-3) Normal [facility] WITH [id number] 06:37:36* Test Item Value Reference Range Interpretation Comme nts WBC (test code = 6690-2) See_Comment [Automated messa ge] The system which generated this result transmitted reference range: 4.20 - 10.70 10*3/?L. The reference range was not used to interpret this result as normal/abnormal. RBC (test code = 789-8) See_Comment [Automated Intent HQa ge] The system which generated this result [...] 33.4 g/dL 31.2-35.0 RDW-SD (test code = 34904-4) 42.7 fL 38.5-51.6 RDW-CV (test code = 788-0) 13.1 % 12.1-15.4 PLT (test code = 777-3) See_Comment [Automated messa ge] The system which generated this result transmitted reference range: 150 - 328 10*3/?L. The reference range was not used to interpret this result as normal/abnormal. MPV (test code = 66746-0) 9.7 fL 9.8-13.0 L NRBC/100 WBC (test code = 4257349592) See_Comment [Automated [employer] ssage] The system which generated this result transmitted reference range: 0.0 - 10.0 /100 WBCs. The reference range was not used to interpret this result as normal/abnormal. NRBC x10^3 (test code = 4092945065) <0.01 See_Comment [Automated Intent HQa ge] The system which generated this result transmitted reference range: 10*3/?L. The reference range was not used to interpret this result as normal/abnormal. GRAN MAT (NEUT) % (test code = 770-8) 54.9 % IMM GRAN % (test code = 7249934660) 0.70 % LYMPH % (test code = 736-9) 32.9 % MONO % (test code = 5905-5) 8.7 % EOS % (test code = 713-8) 2.0 % BASO % (test code = 706-2) 0.8 % GRAN MAT x10^3(ANC) (test code = 0680985454) 5.84 10*3/uL 1.99-6.95 IMM GRAN x10^3 (test code = 0524057736) 0.07 10*3/uL 0.00-0.06 H LYMPH x10^3 (test code = 731-0) 3.50 10*3/uL 1.09-3.23 H MONO x10^3 (test code = 742-7) 0.92 10*3/uL 0.36-1.02 EOS x10^3 (test code = 711-2) 0.21 10*3/uL 0.06-0.53 BASO x10^3 (test code = 704-7) 0.09 10*3/uL 0.01-0.09 Lab Interpretation (test code = 80019-0) Abnormal [facility] HospitalTROPONIN [id number] 01:09:15* Test Item Value Reference Range Interpretation Comments TROPONIN I (test code = 0587615309) 0.003 ng/mL See_Comment [Automated message] The system [...] of biotin. Lab Interpretation (test code = 17090-0) Normal [facility]OLIC PANEL (59063)2021-10-15 00:56:56* Test Item Value Reference Range Interpretation Comme nts NA (test code = 3489286536) 135 mmol/L 135-145 K (test code = 7623620086) 4.6 mmol/L 3.5-5.0 CL (test code = 2653284379) 101 mmol/L 98-108 CO2 TOTAL (test code = 3150320773) 25 mmol/L 23-31 AGAP (test code = 4251725341) 2-16 BUN (test code = 0872523881) 20 mg/dL 7-23 GLUCOSE (test code = 7351695420) 130 mg/dL 70-110 H CREATININE (test code = 9714441096) 0.92 mg/dL 0.60-1.25 TOTAL BILI (test code = 8436342696) 0.4 mg/dL 0.1-1.1 CALCIUM (test code = 7088685433) 10.0 mg/dL 8.6-10.6 T PROTEIN (test code = 5297998747) 8.5 g/dL 6.3-8.2 H ALBUMIN (test code = 6135435227) 4.8 g/dL 3.5-5.0 ALK PHOS (test code = 8137226519) 89 U/L 34-122 ALTv (test code = 1742-6) 59 U/L 5-50 H AST(SGOT) (test code = 7946812486) 38 U/L 13-40 eGFR (test code = 0335376399) mL/min/1.73m2 LAURIE (test code = LAURIE) Association [...] imaging tests). Lab Interpretation (test code = 58959-9) Abnormal [facility]21-[facility] 00:56:36* Test Item Value Reference Range Interpretation Comme nts LIPASE (test code = 5629613481) 77 U/L 0-220 Lab Interpretation (test cod e = 57424-9) Normal [facility] WITH [id number] 00:37:36* Test Item Value Reference Range Interpretation Comme nts WBC (test code = 6690-2) See_Comment [Automated messa ge] The system which generated this result transmitted reference range: 4.20 - 10.70 10*3/?L. The reference range was not used to interpret this result as normal/abnormal. RBC (test code = 789-8) See_Comment [Automated Intent HQa ge] The system which generated this result [...] 33.6 g/dL 31.2-35.0 RDW-SD (test code = 79765-7) 44.2 fL 38.5-51.6 RDW-CV (test code = 788-0) 13.3 % 12.1-15.4 PLT (test code = 777-3) See_Comment [Automated Intent HQa ge] The system which generated this result transmitted reference range: 150 - 328 10*3/?L. The reference range was not used to interpret this result as normal/abnormal. MPV (test code = 91985-4) 9.5 fL 9.8-13.0 L NRBC/100 WBC (test code = 9038304998) See_Comment [Automated [employer] ssage] The system which generated this result transmitted reference range: 0.0 - 10.0 /100 WBCs. The reference range was not used to interpret this result as normal/abnormal. NRBC x10^3 (test code = 8496515308) <0.01 See_Comment [Automated messa ge] The system which generated this result transmitted reference range: 10*3/?L. The reference range was not used to interpret this result as normal/abnormal. GRAN MAT (NEUT) % (test code = 770-8) 55.3 % IMM GRAN % (test code = 2140766985) 0.60 % LYMPH % (test code = 736-9) 32.5 % MONO % (test code = 5905-5) 7.8 % EOS % (test code = 713-8) 2.7 % BASO % (test code = 706-2) 1.1 % GRAN MAT x10^3(ANC) (test code = 7837691969) 5.74 10*3/uL 1.99-6.95 IMM GRAN x10^3 (test code = 5874782543) 0.06 10*3/uL 0.00-0.06 LYMPH x10^3 (test code = 731-0) 3.37 10*3/uL 1.09-3.23 H MONO x10^3 (test code = 742-7) 0.81 10*3/uL 0.36-1.02 EOS x10^3 (test code = 711-2) 0.28 10*3/uL 0.06-0.53 BASO x10^3 (test code = 704-7) 0.11 10*3/uL 0.01-0.09 H Lab Interpretation (test code = 77586-9) Abnormal [facility] HospitalCOVID[facility] (ID NOW RAPID TESTING)2021-03-15 04:10:11* Test Item Value Reference Range Interpretation Comme nts SARS-CoV-2 Rapid ID NOW (test code = 47575-7) Not Detected Not Detected LAURIE (test code = LAURIE) ID NOW COVID-19 As say is an isothermal nucleic acid amplification test intended for the qualitative detection of nucleic acid from SARS-CoV-2 viral RNA in nasopharyngeal ([employer]) specimens. It is used under Emergency Use [...] clinically indicated. Lab Interpretation (test code = 46905-0) Normal [facility] MET[facility]OLIC PANEL (59354)2021-03-15 03:35:30* Test Item Value Reference Range Interpretation Comme nts NA (test code = 6410631203) 139 mmol/L 135-145 K (test code = 3021234447) 3.2 mmol/L 3.5-5.0 L CL (test code = 2367896104) 109 mmol/L 98-108 H CO2 TOTAL (test code = 6234146181) 23 mmol/L 23-31 AGAP (test code = 7963985030) 2-16 BUN (test code = 7531024090) 19 mg/dL 7-23 GLUCOSE (test code = 8008620872) 150 mg/dL 70-110 H CREATININE (test code = 8641294214) 0.81 mg/dL 0.60-1.25 TOTAL BILI (test code = 3121638353) 0.3 mg/dL 0.1-1.1 CALCIUM (test code = 2437903445) 8.2 mg/dL 8.6-10.6 L T PROTEIN (test code = 1998852035) 6.9 g/dL 6.3-8.2 ALBUMIN (test code = 3826879334) 4.0 g/dL 3.5-5.0 ALK PHOS (test code = 4825334791) 77 U/L 34-122 ALTv (test code = 1742-6) 22 U/L 5-50 AST(SGOT) (test code = 8733094912) 26 U/L 13-40 eGFR (test code = 9508266556) mL/min/1.73m2 LAURIE (test code = LAURIE) Association [...] imaging tests). Lab Interpretation (test code = 28640-1) Abnormal [facility]URIN[facility]IS2021-[facility]-27 03:35:00* Test Item Value Reference Range Interpretation Comme nts APPEARANCE (test code = 1185804274) Clear Clear COLOR (test code = 3917027118) Yellow Yellow PH (test code = 2991488450) 4.8-8.0 SP GRAVITY (test code = 3759211818) 1.003-1.030 GLU U QUAL (test code = 9519444926) Normal Normal BLOOD (test code = 6841481303) Negative Negative KETONES (test code = 2248752353) 5 mg/dL Negative A PROTEIN (test code = 2887-8) Negative Negative UROBILIN (test code = 2311811113) Normal Normal BILIRUBIN (test code = 5893665483) Negative Negative NITRITE (test code = 8960782750) Negative Negative LEUK KENNY (test code = 4550087568) Negative Negative RBC/HPF (test code = 2140047740) <1 See_Comment [Automated [employer]] The system which generated this result transmitted reference range: 0 - 3 HPF. The reference range was not used to interpret this result as normal/abnormal. WBC/HPF (test code = 8972192811) <1 See_Comment [Automated [employer]] The system which generated this result transmitted reference range: 0 - 5 HPF. The reference range was not used to interpret this result as normal/abnormal. BACTERIA (test code = 8703858683) Negative Negative MUCOUS (test code = 4570293805) Slight Negative LPF A SQ EPITH (test code = 9055007347) <1 HPF Lab Interpretation (test code = 67232-2) Abnormal [facility] WITH [id number] 03:22:25* Test Item Value Reference Range Interpretation [...] 33.3 g/dL 31.2-35.0 RDW-SD (test code = 73854-2) 45.8 fL 38.5-51.6 RDW-CV (test code = 788-0) 13.7 % 12.1-15.4 PLT (test code = 777-3) See_Comment H [Automated messa ge] The system which generated this result transmitted reference range: 150 - 328 10*3/?L. The reference range was not used to interpret this result as normal/abnormal. MPV (test code = 09248-0) 9.4 fL 9.8-13.0 L NRBC/100 WBC (test code = 6177538032) See_Comment [Automated me ssage] The system which generated this result transmitted reference range: 0.0 - 10.0 /100 WBCs. The reference range was not used to interpret this result as normal/abnormal. NRBC x10^3 (test code = 5914563510) <0.01 See_Comment [Automated messa ge] The system which generated this result transmitted reference range: 10*3/?L. The reference range was not used to interpret this result as normal/abnormal. GRAN MAT (NEUT) % (test code = 770-8) 58.4 % IMM GRAN % (test code = 5390184785) 0.50 % LYMPH % (test code = 736-9) 30.5 % MONO % (test code = 5905-5) 7.5 % EOS % (test code = 713-8) 2.2 % BASO % (test code = 706-2) 0.9 % GRAN MAT x10^3(ANC) (test code = 3606762364) 5.75 10*3/uL 1.99-6.95 IMM GRAN x10^3 (test code = 6823516979) 0.05 10*3/uL 0.00-0.06 LYMPH x10^3 (test code = 731-0) 3.00 10*3/uL 1.09-3.23 MONO x10^3 (test code = 742-7) 0.74 10*3/uL 0.36-1.02 EOS x10^3 (test code = 711-2) 0.22 10*3/uL 0.06-0.53 BASO x10^3 (test code = 704-7) 0.09 10*3/uL 0.01-0.09 Lab Interpretation (test code = 26419-4) Abnormal [facility]. METABOLIC PANEL (97723)2020-09-08 23:50:00* Test Item Value Reference Range Interpretation Comme nts NA (test code = 8091617412) 139 mmol/L 135-145 K (test code = 0966899204) 4.1 mmol/L 3.5-5 CL (test code = 4251339189) 107 mmol/L 98-108 CO2 TOTAL (test code = 3493991181) 22 mmol/L 23-31 L AGAP (test code = 6215932360) 2-16 BUN (test code = 5134629299) 12 mg/dL 7-23 GLUCOSE (test code = 7509426523) 115 mg/dL 70-110 H CREATININE (test code = 5284073381) 0.54 mg/dL 0.6-1.25 L TOTAL BILI (test code = 4455199152) 0.3 mg/dL 0.1-1.1 CALCIUM (test code = 6519799333) 9.3 mg/dL 8.6-10.6 T PROTEIN (test code = 4083900326) 7.6 g/dL 6.3-8.2 ALBUMIN (test code = 3738882954) 4.3 g/dL 3.5-5 ALK PHOS (test code = 6782901882) 80 U/L 34-122 ALTv (test code = 1742-6) 21 U/L 5-50 AST(SGOT) (test code = 3346209262) 21 U/L 13-40 eGFR Calculation (Non-) (test code = 9995713644) mL/min/1.73m2 eGFR Calculation () (test code = 7910707400) mL/min/1.73m2 LAURIE (test code = LAURIE) Association [...] imaging tests). Lab Interpretation (test code = 50648-5) [facility]normal [facility]2020-[facility] 23:50:00* Test Item Value Reference Range Interpretation Comme nts LIPASE (test code = 2724460119) 68 U/L 0-220 Lab Interpretation (test cod e = 27819-0) Normal [facility] WITH [id number] 23:22:00* Test Item Value Reference Range Interpretation [...] 34.1 g/dL 31.2-35 RDW-SD (test code = 35263-5) 40.8 fL 38.5-51.6 RDW-CV (test code = 788-0) 12.5 % 12.1-15.4 PLT (test code = 777-3) See_Comment [Automated messa ge] The system which generated this result transmitted reference range: 150 - 328 10*3/?L. The reference range was not used to interpret this result as normal/abnormal. MPV (test code = 12284-6) 9.1 fL 9.8-13 L NRBC/100 WBC (test code = 2215000386) See_Comment [Automated me ssage] The system which generated this result transmitted reference range: 0.0 - 10.0 /100 WBCs. The reference range was not used to interpret this result as normal/abnormal. NRBC x10^3 (test code = 1321262438) <0.01 See_Comment [Automated messa ge] The system which generated this result transmitted reference range: 10*3/?L. The reference range was not used to interpret this result as normal/abnormal. GRAN MAT (NEUT) % (test code = 770-8) 59.0 % IMM GRAN % (test code = 7356788046) 0.60 % LYMPH % (test code = 736-9) 31.3 % MONO % (test code = 5905-5) 6.6 % EOS % (test code = 713-8) 1.9 % BASO % (test code = 706-2) 0.6 % GRAN MAT x10^3(ANC) (test code = 7243748720) 5.85 10*3/uL 1.99-6.95 IMM GRAN x10^3 (test code = 7357554284) 0.06 10*3/uL 0-0.06 LYMPH x10^3 (test code = 731-0) 3.10 10*3/uL 1.09-3.23 MONO x10^3 (test code = 742-7) 0.65 10*3/uL 0.36-1.02 EOS x10^3 (test code = 711-2) 0.19 10*3/uL 0.06-0.53 BASO x10^3 (test code = 704-7) 0.06 10*3/uL 0.01-0.09 Lab Interpretation (test code = 49393-0) [facility]normal [facility] W [id number] 17:21:17CT Abdomen and Pelvis with intravenous contrast. [...] fluid inthe abdomen or in the pelvis.2. Hepatomegaly.[facility]. METABOLIC PANEL (91099) 2020-09-06 16:39:00* Test Item Value Reference Range Interpretation Comme nts NA (test code = 6128952606) 138 mmol/L 135-145 K (test code = 2335482983) 4.2 mmol/L 3.5-5 CL (test code = 0802307467) 103 mmol/L 98-108 CO2 TOTAL (test code = 7752347333) 25 mmol/L 23-31 AGAP (test code = 3510250889) 2-16 BUN (test code = 6254489003) 17 mg/dL 7-23 GLUCOSE (test code = 3689323677) 124 mg/dL 70-110 H CREATININE (test code = 5124281885) 0.95 mg/dL 0.6-1.25 TOTAL BILI (test code = 2482024358) 0.4 mg/dL 0.1-1.1 CALCIUM (test code = 1999849184) 9.7 mg/dL 8.6-10.6 T PROTEIN (test code = 6426627817) 7.9 g/dL 6.3-8.2 ALBUMIN (test code = 2884154096) 4.5 g/dL 3.5-5 ALK PHOS (test code = 8900684744) 75 U/L 34-122 ALTv (test code = 1742-6) 28 U/L 5-50 AST(SGOT) (test code = 1201079787) 23 U/L 13-40 eGFR Calculation (Non-) (test code = 4736211846) mL/min/1.73m2 eGFR Calculation () (test code = 6120284797) mL/min/1.73m2 LAURIE (test code = LAURIE) Association [...] imaging tests). Lab Interpretation (test code = 33633-2) [facility]normal [facility]2020-[facility] 16:39:00* Test Item Value Reference Range Interpretation Comme nts LIPASE (test code = 1018324870) 70 U/L 0-220 Lab Interpretation (test cod e = 05658-3) Normal [facility]2020-11-18 16:39:00* Test Item Value Reference Range Interpretation Comme nts MAGNESIUM (test code = 4651022730) 1.9 mg/dL 1.7-2.4 Lab Interpretation (test cod e = 44159-6) Normal [facility] HospitalLactic Acid Whole [id number] 16:38:00* Test Item Value Reference Range Interpretation Comme nts LACTIC ACID (test code = 8024985526) 1.51 mmol/L [facility] WITH [id number] 16:20:00* Test Item Value Reference Range Interpretation Comme nts WBC (test code = 6690-2) See_Comment [Automated Intent HQa ge] The system which generated this result transmitted reference range: 4.20 - 10.70 10*3/?L. The reference range was not used to interpret this result as normal/abnormal. RBC (test code = 789-8) See_Comment [Automated Intent HQa ge] The system which generated this result [...] 32.8 g/dL 31.2-35 RDW-SD (test code = 62731-3) 42.2 fL 38.5-51.6 RDW-CV (test code = 788-0) 12.6 % 12.1-15.4 PLT (test code = 777-3) See_Comment [Automated Intent HQa ge] The system which generated this result transmitted reference range: 150 - 328 10*3/?L. The reference range was not used to interpret this result as normal/abnormal. MPV (test code = 21783-0) 9.3 fL 9.8-13 L NRBC/100 WBC (test code = 6917811150) See_Comment [Automated me ssage] The system which generated this result transmitted reference range: 0.0 - 10.0 /100 WBCs. The reference range was not used to interpret this result as normal/abnormal. NRBC x10^3 (test code = 8813526042) <0.01 See_Comment [Automated messa ge] The system which generated this result transmitted reference range: 10*3/?L. The reference range was not used to interpret this result as normal/abnormal. GRAN MAT (NEUT) % (test code = 770-8) 64.9 % IMM GRAN % (test code = 1065451484) 0.50 % LYMPH % (test code = 736-9) 25.0 % MONO % (test code = 5905-5) 7.5 % EOS % (test code = 713-8) 1.3 % BASO % (test code = 706-2) 0.8 % GRAN MAT x10^3(ANC) (test code = 7571965113) 5.99 10*3/uL 1.99-6.95 IMM GRAN x10^3 (test code = 1912233065) 0.05 10*3/uL 0-0.06 LYMPH x10^3 (test code = 731-0) 2.31 10*3/uL 1.09-3.23 MONO x10^3 (test code = 742-7) 0.69 10*3/uL 0.36-1.02 EOS x10^3 (test code = 711-2) 0.12 10*3/uL 0.06-0.53 BASO x10^3 (test code = 704-7) 0.07 10*3/uL 0.01-0.09 Lab Interpretation (test code = 18450-0) Abnormal [facility]. METABOLIC PANEL (73759)2020-08-30 10:29:00* Test Item Value Reference Range Interpretation Comme nts NA (test code = 0646834207) 139 mmol/L 135-145 K (test code = 6803303107) 4.7 mmol/L 3.5-5 CL (test code = 0389636084) 105 mmol/L 98-108 CO2 TOTAL (test code = 2199826505) 24 mmol/L 23-31 AGAP (test code = 5986283063) 2-16 BUN (test code = 9941244977) 21 mg/dL 7-23 GLUCOSE (test code = 4352364608) 109 mg/dL 70-110 CREATININE (test code = 8905082626) 0.99 mg/dL 0.6-1.25 TOTAL BILI (test code = 0767602731) 0.4 mg/dL 0.1-1.1 CALCIUM (test code = 1545042224) 9.4 mg/dL 8.6-10.6 T PROTEIN (test code = 5637866665) 7.4 g/dL 6.3-8.2 ALBUMIN (test code = 2258577240) 4.2 g/dL 3.5-5 ALK PHOS (test code = 3309720053) 68 U/L 34-122 ALTv (test code = 1742-6) 33 U/L 5-50 AST(SGOT) (test code = 5960291992) 28 U/L 13-40 eGFR Calculation (Non-) (test code = 2940512976) mL/min/1.73m2 eGFR Calculation () (test code = 3164721440) mL/min/1.73m2 LAURIE (test code = LAURIE) Association [...] or urine or abnormalities in imaging tests). [facility] WITH [id number] 09:50:00* Test Item Value Reference Range Interpretation [...] 32.4 g/dL 31.2-35 RDW-SD (test code = 37211-6) 43.6 fL 38.5-51.6 RDW-CV (test code = 788-0) 13.0 % 12.1-15.4 PLT (test code = 777-3) See_Comment [Automated message] The system which generated this result transmitted reference range: 150 - 328 10*3/?L. The reference range was not used to interpret this result as normal/abnormal. MPV (test code = 87921-1) 10.0 fL 9.8-13 NRBC/100 WBC (test code = 8201952943) See_Comment [Automated message] The system which generated this result transmitted reference range: 0.0 - 10.0 /100 WBCs. The reference range was not used to interpret this result as normal/abnormal. NRBC x10^3 (test code = 9455144858) <0.01 See_Comment [Automated message] The system which generated this result transmitted reference range: 10*3/?L. The reference range was not used to interpret this result as normal/abnormal. GRAN MAT (NEUT) % (test code = 770-8) 80.1 % IMM GRAN % (test code = 5986108022) 0.50 % LYMPH % (test code = 736-9) 12.5 % MONO % (test code = 5905-5) 6.5 % EOS % (test code = 713-8) 0.1 % BASO % (test code = 706-2) 0.3 % GRAN MAT x10^3(ANC) (test code = 3266489852) 12.09 10*3/uL 1.99-6.95 H IMM GRAN x10^3 (test code = 7927331888) 0.08 10*3/uL 0-0.06 H LYMPH x10^3 (test code = 731-0) 1.89 10*3/uL 1.09-3.23 MONO x10^3 (test code = 742-7) 0.98 10*3/uL 0.36-1.02 EOS x10^3 (test code = 711-2) <0.03 0.06-0.53 L BASO x10^3 (test code = 704-7) 0.04 10*3/uL 0.01-0.09 Lab Interpretation (test code = 16731-6) [facility]normal [facility] PAN[facility] (17003[facility] (ALB,T.PRO,BILI T,BU/BC,ALT,AST,ALK PHOS)2020-08-28 21:15:00* Test Item Value Reference Range Interpretation Comme nts TOTAL BILI (test code = 0661094838) 0.6 mg/dL 0.1-1.1 BILI UNCON (test code = 0268426520) 0.4 mg/dL 0.1-1.1 BILI CONJ (test code = 6999100303) 0.0 mg/dL 0-0.3 T PROTEIN (test code = 8018762785) 7.2 g/dL 6.3-8.2 ALBUMIN (test code = 3322751223) 3.9 g/dL 3.5-5 ALK PHOS (test code = 2001574715) 65 U/L 34-122 ALTv (test code = 1742-6) 20 U/L 5-50 AST(SGOT) (test code = 5479004061) 25 U/L 13-40 Lab Interpretation (test cod e = 28761-0) Normal [facility] ABDOMEN [id number] 18:22:30 Hepatomegaly with moderate hepatic steatosis. Cholelithiasis [...] sign which could be related to stone. [facility]XR CHEST 1 [id number] 14:32:06No acute cardiopulmonary abnormality. Preliminary Report Dictated [...] have reviewed this study andagree with theabove report.[facility] HospitalBasi Metabolic Panel (NA, K, CL, CO2, GLUCOSE, BUN, CREATININE, CA) 2020-08-28 11:39:00* Test Item Value Reference Range Interpretation Comme nts NA (test code = 9140121855) 137 mmol/L 135-145 K (test code = 6884066751) 3.9 mmol/L 3.5-5 CL (test code = 3710629025) 104 mmol/L 98-108 CO2 TOTAL (test code = 0728073865) 28 mmol/L 23-31 AGAP (test code = 7689531304) 2-16 BUN (test code = 4569522562) 15 mg/dL 7-23 GLUCOSE (test code = 1063527872) 96 mg/dL 70-110 CREATININE (test code = 7786330167) 0.68 mg/dL 0.6-1.25 CALCIUM (test code = 6515886626) 9.2 mg/dL 8.6-10.6 eGFR Calculation (Non-) (test code = 6794778018) mL/min/1.73m2 eGFR Calculation () (test code = 3399127954) mL/min/1.73m2 LAURIE (test code = LAURIE) Association [...] or urine or abnormalities in imaging tests). [facility] ABDOMEN PELVIS W WO [id number] 19:39:221. ?Diffuse bladder wall thickening is likely [...] reviewed this study and agree with theabove report.[facility] HospitalPOCT GLUCOSE (AUTOMATED) 2020-08-27 19:34:00* Test Item Value Reference Range Interpretation Comme nts POCT GLU (test code = 9998258592) 95 mg/dL 70-110 Lab Interpretation (test cod e = 00090-6) Normal [facility] HospitalTROPONIN [id number] 19:12:00* Test Item Value Reference Range Interpretation Comme nts TROPONIN I (test code = 1156441438) <0.012 See_Comment [Automated message] The system which [...] biotin. ? Lab Interpretation (test code = 73180-8) Normal [facility] HospitalPOCT GLUCOSE (AUTOMATED)2020-08-27 14:42:00* Test Item Value Reference Range Interpretation Comme nts POCT GLU (test code = 3645511879) 99 mg/dL 70-110 Lab Interpretation (test cod e = 75194-4) Normal [facility] HospitalTROPONIN [id number] 13:09:00* Test Item Value Reference Range Interpretation Comme [facility] TROPONIN I (test code = 6252992134) <0.012 See_Comment [Automated message] The system which [...] biotin. ? Lab Interpretation (test code = 42958-4) Normal [facility] HospitalLIPID PANEL (56411)(TOTAL CHOLESTEROL, TRIGLYCERIDES, HDL)2020-08-27 08:31:00* Test Item Value Reference Range Interpretation Comme nts CHOL (test code = 0955263171) 208 mg/dL 120-200 H HDL (test code = 3120253328) 28 mg/dL >40 L HDLC RATIO (test code = 5233123518) See_Comment H [Automated Intent [employer]] The system which generated this result transmitted reference range: <=5.0. The reference range was not used to interpret this result as normal/abnormal. TRIG (test code = 4719079226) 351 mg/dL 30-170 H LDL CHOL (test code = 35436-3) 110 mg/dL See_Comment [Automated Intent [employer]] The system which generated this result transmitted reference range: <=160. The reference range was not used to interpret this result as normal/abnormal. VLDL (test code = 3908562644) 70 mg/dL 5-60 H Lab Interpretation (test code = 20030-3) Abnormal [facility] HospitalTHYROID STIMULATING [id number] 08:00:00 * Test Item Value Reference Range Interpretation Comme nts TSH (test code = 4041305183) See_Comment L Biotin has been reported to cause a negative bias, interpret results relative to patient's use of biotin. [Automated message] The system which generated this result transmitted reference range: 0.45 - 4.70 mIU/L. The reference range was not used to interpret this result as normal/abnormal. Lab Interpretation (test code = 28054-6) Abnormal [facility] HospitalCOVID-19 (ID NOW RAPID TESTING)2020-08-27 07:03:00* Test Item Value Reference Range Interpretation Comme nts SARS-CoV-2 Rapid ID NOW (test code = 75771-6) Not Detected Not Detected LAURIE (test code = LAURIE) ID NOW COVID-19 As say is an isothermal nucleic acid amplification test intended for the qualitative detection of nucleic acid from SARS-CoV-2 viral RNA in nasopharyngeal ([employer]) specimens. It is used under Emergency Use [...] clinically indicated. Lab Interpretation (test code = 78855-5) Normal [facility] [id number] 06:58:00* Test Item Value Reference Range Interpretation Comme nts BENZO U (test code = 1932649153) Negative Negative HORACIO U (test code = 4866383135) Negative Negative AMPHET (test code = 7873783206) Negative Negative THC (test code = 6590660155) Negative Negative METHADONE (test code = 3009030314) Negative Negative Meth U (test code = 3264030927) Negative Negative OPIATES (test code = 0058996472) Negative Negative Cocaine Metabolite (test code = 0406921329) Negative Negative PROPOXY (test code = 7584637519) Negative Negative Tric U (test code = 2133520390) Negative Negative PCP (test code = 1257069716) Negative Negative OXYCOD (test code = 5934048964) Negative Negative LAURIE (test code = LAURIE) [...] legal testing). Lab Interpretation (test code = 89569-0) Normal [facility] HospitalUrinalysis2020-11-08 06:51:00* Test Item Value Reference Range Interpretation Comme nts APPEARANCE (test code = 5481477786) Clear Clear COLOR (test code = 1846292173) Yellow Yellow PH (test code = 5905940509) 4.8-8.0 SP GRAVITY (test code = 6750380840) 1.003-1.030 GLU U QUAL (test code = 3225043517) Normal Normal BLOOD (test code = 3175545953) Negative Negative KETONES (test code = 7645865736) 20 mg/dL Negative A PROTEIN (test code = 2887-8) Negative Negative UROBILIN (test code = 6593455057) Normal Normal BILIRUBIN (test code = 0021025283) Negative Negative NITRITE (test code = 9903922758) Negative Negative LEUK KENNY (test code = 2652123454) Negative Negative RBC/HPF (test code = 0152651484) See_Comment [Automated [employer]] The system which generated this result transmitted reference range: 0 - 3 HPF. The reference range was not used to interpret this result as normal/abnormal. WBC/HPF (test code = 2911029862) See_Comment [Automated Intent HQa ge] The system which generated this result transmitted reference range: 0 - 5 HPF. The reference range was not used to interpret this result as normal/abnormal. BACTERIA (test code = 8536088530) Negative Negative MUCOUS (test code = 9780193706) Slight Negative LPF A Lab Interpretation (test code = 92004-9) Abnormal [facility] HospitalTroponin [id number] 06:45:00* Test Item Value Reference Range Interpretation Comme nts TROPONIN I (test code = 6817086031) <0.012 See_Comment [Automated message] The system which [...] biotin. ? Lab Interpretation (test code = 25396-2) Normal [facility] HospitalETHANOL2020-11-08 06:34:00* Test Item Value Reference Range Interpretation Comme nts ALCOHOL (test code = 8876287803) 14 mg/dL LAURIE (test code = LAURIE) <10 Opznlrbh28-026 Toxic>100 Depression of GROCERY CASHIER>400 Fatalities Reported [facility] HospitalBasic Metabolic Panel (NA, K, CL, CO2, GLUCOSE, BUN, CREATININE, CA)2020-08-27 06:33:00* Test Item Value Reference Range Interpretation Comme nts NA (test code = 8754586188) 137 mmol/L 135-145 K (test code = 0084252967) 3.6 mmol/L 3.5-5 CL (test code = 4683240015) 102 mmol/L 98-108 CO2 TOTAL (test code = 5276632179) 26 mmol/L 23-31 AGAP (test code = 5168107691) 2-16 BUN (test code = 7720816100) 13 mg/dL 7-23 GLUCOSE (test code = 1301119768) 119 mg/dL 70-110 H CREATININE (test code = 6236818791) 0.86 mg/dL 0.6-1.25 CALCIUM (test code = 5653583269) 9.8 mg/dL 8.6-10.6 eGFR Calculation (Non-) (test code = 7367987947) mL/min/1.73m2 eGFR Calculation () (test code = 2727523839) mL/min/1.73m2 LAURIE (test code = LAURIE) Association [...] imaging tests). Lab Interpretation (test code = 69790-0) Abnormal [facility] HospitalHepatic Function Panel (ALB, T.PRO, BILI T, BU/BC, ALT, AST, ALK PHOS)2020-08-27 06:33:00* Test Item Value Reference Range Interpretation Comme nts TOTAL BILI (test code = 8815184731) 0.3 mg/dL 0.1-1.1 BILI UNCON (test code = 1901105842) 0.2 mg/dL 0.1-1.1 BILI CONJ (test code = 1768077693) 0.0 mg/dL 0-0.3 T PROTEIN (test code = 0871420023) 7.8 g/dL 6.3-8.2 ALBUMIN (test code = 3315100282) 4.5 g/dL 3.5-5 ALK PHOS (test code = 0942803751) 71 U/L 34-122 ALTv (test code = 1742-6) 26 U/L 5-50 AST(SGOT) (test code = 6673834661) 26 U/L 13-40 Lab Interpretation (test cod e = 40638-9) Normal [facility] HospitalLipase [id number] 06:33:00* Test Item Value Reference Range Interpretation Comme [facility] LIPASE (test code = 1097475979) 77 U/L 0-220 Lab Interpretation (test cod e = 73763-9) Normal [facility] HospitalaPTT2020-11-08 06:19:00* Test Item Value Reference Range Interpretation Comme [facility] APTT Patient (test code = 3173-2) See_Comment [Automated message] The system which generated this result transmitted reference range: 23 - 38 Seconds. The reference range was not used to interpret this result as normal/abnormal. LAURIE (test code = LAURIE) [facility] mean normal value for aPTT is 30 seconds. Lab Interpretation (test code = 59384-8) Normal [facility] HospitalProthrombin Time (PT) / [id number] 06:17:00 * Test Item Value Reference Range Interpretation Comme [facility] PROTIME PATIENT (test code = 5964-2) See_Comment [Automated messa ge] The system which generated this result transmitted reference range: 12.0 - 14.7 Seconds. The reference range was not used to interpret this result as normal/abnormal. INR (test code = 6301-6) Normal INR <1.1; Warfarin Therapeutic range 2.0 to 3.0 or 2.5 to 3.5, depending upon the indications. Lab Interpretation (test code = 62962-3) Normal [facility] HospitalCBC with [id number] 06:07:00* Test Item Value Reference Range Interpretation [...] 32.8 g/dL 31.2-35 RDW-SD (test code = 44819-1) 42.9 fL 38.5-51.6 RDW-CV (test code = 788-0) 12.7 % 12.1-15.4 PLT (test code = 777-3) See_Comment [Automated Intent HQa ge] The system which generated this result transmitted reference range: 150 - 328 10*3/?L. The reference range was not used to interpret this result as normal/abnormal. MPV (test code = 43218-1) 9.1 fL 9.8-13 L NRBC/100 WBC (test code = 5043357406) See_Comment [Automated [employer] ss[employer]] The system which generated this result transmitted reference range: 0.0 - 10.0 /100 WBCs. The reference range was not used to interpret this result as normal/abnormal. NRBC x10^3 (test code = 3044371303) <0.01 See_Comment [Automated Intent HQa ge] The system which generated this result transmitted reference range: 10*3/?L. The reference range was not used to interpret this result as normal/abnormal. GRAN MAT (NEUT) % (test code = 770-8) 52.4 % IMM GRAN % (test code = 3922745039) 0.50 % LYMPH % (test code = 736-9) 37.8 % MONO % (test code = 5905-5) 6.2 % EOS % (test code = 713-8) 2.3 % BASO % (test code = 706-2) 0.8 % GRAN MAT x10^3(ANC) (test code = 9737293198) 4.33 10*3/uL 1.99-6.95 IMM GRAN x10^3 (test code = 5330728959) 0.04 10*3/uL 0-0.06 LYMPH x10^3 (test code = 731-0) 3.13 10*3/uL 1.09-3.23 MONO x10^3 (test code = 742-7) 0.51 10*3/uL 0.36-1.02 EOS x10^3 (test code = 711-2) 0.19 10*3/uL 0.06-0.53 BASO x10^3 (test code = 704-7) 0.07 10*3/uL 0.01-0.09 Lab Interpretation (test code = 47471-1) Abnormal [facility] [id number] 04:41:00* Test Item Value Reference Range Interpretation Comme nts TROPONIN I (test code = 9603487789) 0.000 ng/mL See_Comment [Automated message] The system [...] biotin. ? Lab Interpretation (test code = 81412-2) Normal [facility] / [facility] [id number] 03:46:00* Test Item Value Reference Range Interpretation Comme nts BENZO U (test code = 4453465180) Negative Negative HORACIO U (test code = 3990104484) Negative Negative AMPHET (test code = 7028173990) Negative Negative THC (test code = 9858104369) Negative Negative METHADONE (test code = 3824155152) Negative Negative Meth U (test code = 8231652941) Negative Negative OPIATES (test code = 0561680392) Presumptive Positive Negative A Cocaine Metabolite (test code = 2932307744) Negative Negative PROPOXY (test code = 9075196574) Negative Negative Tric U (test code = 9937897610) Negative Negative PCP (test code = 6227867869) Negative Negative OXYCOD (test code = 4365635106) Negative Negative LAURIE (test code = LAURIE) [...] legal testing). Lab Interpretation (test code = 10392-7) Abnormal [facility] HospitalD-[id number] 03:29:00* Test Item Value Reference Range Interpretation Comments D-DIMER (test code = 3320887997) <0.27 See_Comment [Automated message] The system which [...] a diagnosis. Lab Interpretation (test code = 49983-8) Normal [facility] HospitalLIPASE2020-09-21 02:07:00* Test Item Value Reference Range Interpretation Comme nts LIPASE (test code = 6838304439) 58 U/L 0-220 Lab Interpretation (test cod e = 53781-1) Normal [facility] HospitalXR CHEST 1 [id number] 01:44:02No acute cardiopulmonary abnormality. Preliminary Report Dictated [...] reviewed this study and agree with theabove report.[facility] TROPONIN [id number] 01:40:00* Test Item Value Reference Range Interpretation Comme [facility] TROPONIN I (test code = 4836588207) 0.000 ng/mL See_Comment [Automated message] The system [...] biotin. ? Lab Interpretation (test code = 47419-6) Normal [facility] HospitalPROTHROMBIN TIME / [id number] 01:39:00* Test Item Value Reference Range Interpretation Comme [facility] PROTIME PATIENT (test code = 5964-2) See_Comment [Automated Intent [employer]] The system which generated this result transmitted reference range: 12.0 - 14.7 Seconds. The reference range was not used to interpret this result as normal/abnormal. INR (test code = 6301-6) Normal INR <1.1; Warfarin Therapeutic range 2.0 to 3.0 or 2.5 to 3.5, depending upon the indications. Lab Interpretation (test code = 68906-7) Normal [facility] HospitalCOVID-19 (ID NOW RAPID TESTING)2020-07-10 01:36:00* Test Item Value Reference Range Interpretation Comme nts SARS-CoV-2 Rapid ID NOW (test code = 14013-6) Not Detected Not Detected LAURIE (test code = LAURIE) ID NOW COVID-19 As say is an isothermal nucleic acid amplification test intended for the qualitative detection of nucleic acid from SARS-CoV-2 viral RNA in nasopharyngeal ([employer]) specimens. It is used under Emergency Use [...] clinically indicated. Lab Interpretation (test code = 40151-2) Normal [facility] HospitalCOM. METABOLIC PANEL (69226)2020-07-10 01:29:00* Test Item Value Reference Range Interpretation Comme nts NA (test code = 7694346915) 136 mmol/L 135-145 K (test code = 0203128984) 3.4 mmol/L 3.5-5 L CL (test code = 7975597586) 98 mmol/L 98-108 CO2 TOTAL (test code = 7668781156) 26 mmol/L 23-31 AGAP (test code = 1304888689) 2-16 BUN (test code = 0150449541) 16 mg/dL 7-23 GLUCOSE (test code = 4518864504) 165 mg/dL 70-110 H CREATININE (test code = 0042936561) 0.94 mg/dL 0.6-1.25 TOTAL BILI (test code = 0879149187) 0.4 mg/dL 0.1-1.1 CALCIUM (test code = 5837463514) 9.7 mg/dL 8.6-10.6 T PROTEIN (test code = 8955431125) 8.2 g/dL 6.3-8.2 ALBUMIN (test code = 2124939355) 4.4 g/dL 3.5-5 ALK PHOS (test code = 4093991930) 77 U/L 34-122 ALTv (test code = 1742-6) 31 U/L 5-50 AST(SGOT) (test code = 9800187387) 26 U/L 13-40 eGFR Calculation (Non-) (test code = 0052331452) mL/min/1.73m2 eGFR Calculation () (test code = 1141320950) mL/min/1.73m2 LAURIE (test code = LAURIE) Association [...] imaging tests). Lab Interpretation (test code = 91097-9) Abnormal [facility] WITH [id number] 01:11:00* Test Item Value Reference Range Interpretation [...] 34.0 g/dL 31.2-35 RDW-SD (test code = 13181-2) 42.6 fL 38.5-51.6 RDW-CV (test code = 788-0) 13.0 % 12.1-15.4 PLT (test code = 777-3) See_Comment [Automated messa ge] The system which generated this result transmitted reference range: 150 - 328 10*3/?L. The reference range was not used to interpret this result as normal/abnormal. MPV (test code = 46405-3) 9.5 fL 9.8-13 L NRBC/100 WBC (test code = 2413001326) See_Comment [Automated [employer] ssage] The system which generated this result transmitted reference range: 0.0 - 10.0 /100 WBCs. The reference range was not used to interpret this result as normal/abnormal. NRBC x10^3 (test code = 0898276018) <0.01 See_Comment [Automated messa ge] The system which generated this result transmitted reference range: 10*3/?L. The reference range was not used to interpret this result as normal/abnormal. GRAN MAT (NEUT) % (test code = 770-8) 65.5 % IMM GRAN % (test code = 8237270029) 0.70 % LYMPH % (test code = 736-9) 26.1 % MONO % (test code = 5905-5) 5.7 % EOS % (test code = 713-8) 1.2 % BASO % (test code = 706-2) 0.8 % GRAN MAT x10^3(ANC) (test code = 4300430135) 6.62 10*3/uL 1.99-6.95 IMM GRAN x10^3 (test code = 6450598033) 0.07 10*3/uL 0-0.06 H LYMPH x10^3 (test code = 731-0) 2.64 10*3/uL 1.09-3.23 MONO x10^3 (test code = 742-7) 0.58 10*3/uL 0.36-1.02 EOS x10^3 (test code = 711-2) 0.12 10*3/uL 0.06-0.53 BASO x10^3 (test code = 704-7) 0.08 10*3/uL 0.01-0.09 Lab Interpretation (test code = 28512-9) Abnormal [facility] Notes Date/Time Note Provider Source 2024-11-13 22:14:01 Patient left before discharge-did not get ordered treatment, med, or DC paperwork. [facility] Babak Garrido RN [facility] 2024-11-13 21:55:35 Attempted to call patient again from lobby-patient is not there. Provider Renita White notified. [facility] 2024-11-13 21:15:00 Went out to lobby -called patient. Patient not in lobby. 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 2024-02-04 14:36:04 Pt discharged with diagnosis of generalized abdominal pain and N/V. Printed and verbal instructions reviewed with and given to patient. No new prescriptions given for this visit. Pt verbalized understanding of teaching and recommended follow-up. Denies questions or concerns at this time. Pt ambulatory at discharge. Appears in no apparent distress. No ataxia noted. Iris Ferguson RN [facility] 2024-02-04 13:30:00 Report from Korey LAZO. Belkys Corrigan RN [facility] 2024-02-04 10:46:14 Pt arrived via private car with RLQ abd pain starting 2-3 days ago abd becoming worse Shalini Nair RN [facility] 2023-12-28 04:24:01 Pt given printed and verbal discharge instructions regarding epigastric pain, encouraged smaller meals. Pt verbalized understanding of instructions,pt encouraged to follow up with pcp and or GI Advised to seek medical attention for new/prolonged/worsening of symptoms, Awake, alert oriented, resp reg unlabored, skin w/d, pt leaving in no apparent distress, Cynthia Frank RN [facility] 2023-12-28 03:42:02 Pt reports the GI cocktail did not relieve his discomfort. Pt states he can feel his food coming up his esophagus. Pt is requesting medication for pain. Vira Huang RN [facility] 2023-12-28 03:07:24 Patient ambulatory to ED c/o waking up around 0100 this AM to food feeling like it was coming back up from his stomach to mouth. Patient last ate around 1900 and went to bed around 2200. Patient states having headache, denies N/V/D. Tylenol taken around 1900 for headache. ANDRAT Sarina Graham RN [facility] 2023-12-28 03:06:00 [facility] Note Patient Name: Marysol Dumont Date of : 1975 48 year old male Treatment Room: Room/bed info not found Primary Care Physician: PATIENT DOES NOT HAVE A PCP Patient Escorted by: Friend [6] Mode of Arrival: Personal means [1] EMS Treatment Prior to ED Arrival: COSMETIC COUNSELOR treatment: Medication (comment) COSMETIC COUNSELOR treatment comments: Tylenol Travel and Exposure Screening: [...] History provided by: Patient and medical records maid supervisor used: Yes Abdominal Pain Pain location: Epigastric [...] MD -- ED COURSE Diagnosis/Impression as of 12/28/23413 Epigastric pain Procedures: Procedures MDM: Medical Decision [...] for Cough for up to 20 doses. UWKRESFBAP-GEVQJPUKWZYHF-MWHV 50-325-40 MG TABLET Take 1 tablet by [...] for follow-up Allison Sanchez MD Specialty: IM-GASTROENTEROLOGY [facility] [id number] [address] [facility] [id number] Electronically signed by: Chapito Contreras MD 12/28/[address] [facility] 2023-11-06 02:36:40 Pt given printed and verbal [...] in no apparent distress Y Huang RN [facility] 2023-11-05 23:47:32 Patient ambulatory to ED c/o abd pain that started yesterday. Patient went to PCP today and patient states no prescriptions were given. Patient states vomiting twice COSMETIC COUNSELOR. Last medication taken was Tylenol tonight. Patient is tearful in triage. Y Graham RN [facility] 2023-11-01 04:18:58 Pt given printed and verbal [...] with steady gait, in no apparent distress [facility] 2023-10-31 23:33:52 Pt arrived c/o RLQ/epigastric abdominal pain, vomiting, and headache. Pain began yesterday. PMH: Gallbladder removed 2/3 years ago [facility] 2023-10-31 23:28:00 [facility] Note Patient Name: Marysol Dumont Date of : 1975 48 year old male Treatment Room: TX1/TX1 Primary Care Physician: PATIENT DOES NOT HAVE A PCP Patient Escorted by: Family [5] Mode of Arrival: Personal means [1] EMS Treatment Prior to ED Arrival: COSMETIC COUNSELOR treatment: None Travel and Exposure Screening: Symptoms [...] No obvious mass, no hernia sac, testicles-nl. [place], nontender Musculoskeletal: General: Normal range of motion. [...] the abdomen or pelvis. RL: 460 AFC: 16001 Lab Results: Lab Results COMP. METABOLIC PANEL (70571) - Abnormal Result Value Ref Range NA [...] for Cough for up to 20 doses. USWCTAYJAF-[id number] 50-325-40 MG TABLET Take 1 tablet by [...] by: Jose Francisco Walters MD 11/01/23 0332 [facility] 2023-10-23 02:26:31 Pt given printed and verbal [...] with steady gait, in no apparent distress. 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 2023-10-22 23:44:24 CC: Pt reports RLQ abd pain and 2 episodes of vomiting since morning. Pt has BM this morning was normal. PMHx: HTN, DM2 Awake, alert, oriented, resp reg unlabored, skin warm, color appropriate for race, moves all ext without difficulty, amb with steady gait [facility] 2023-10-22 23:33:00 [facility] Emergency Department Note Patient Name: Marysol Dumont Date of : 1975 48 year old male Treatment [facility]: [facility] Primary Care Physician: PATIENT DOES NOT HAVE A PCP Patient Escorted by: Family [5] Mode of Arrival: Personal means [1] EMS Treatment Prior to ED Arrival: COSMETIC COUNSELOR treatment: Medication (comment) COSMETIC COUNSELOR treatment comments: 2 tylenol 2 hrs ago [...] History provided by: Medical records and patient maid supervisor used: No Abdominal Pain Pain location: RLQ [...] abdomen or pelvis. Normal appendix. RL: 460 [facility]: [id number] Lab Results: Lab Results COMP. METABOLIC PANEL (61481) - Abnormal Result Value Ref Range NA [...] controlled substances. Risk Details: Will refer to SABI Evans Flowsheet Documentation: Scoring Tools: No data recorded [...] for Cough for up to 20 doses. [id number]-[id number] 50-325-40 MG TABLET Take 1 tablet by [...] for follow-up Omaira Chen MD Specialty: IM-GASTROENTEROLOGY [address] [place] [id number] Electronically signed by: Chapito Contreras MD 10/23/23219 [facility] 2023-07-07 05:55:19 Formatting of this n ote [...] noted upon discharge Pt ambulated to the lobby with steady gait [facility] 2023-07-07 03:54:59 Formatting of this n ote might be different from the original. Pt states that he last night his blood pressure was running high and he has headache. 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 Pt state that he took his enalapril around 2300 last night. [facility] 2023-07-07 03:49:00 Formatting of this n ote is different from the original. [facility] Emergency Department Note Patient Name: Marysol Dumont Date of : 1975 47 year old male Treatment Room: TX5/TX5 Primary Care Physician: PATIENT DOES NOT HAVE A PCP Patient Escorted by: Self [9] Mode of Arrival: Personal means [1] EMS Treatment Prior to ED Arrival: COSMETIC COUNSELOR treatment: None Travel and Exposure Screening: Symptoms [...] History provided by: Patient and medical records maid supervisor used: No Hypertension Severity: Moderate Onset quality: Sudden Duration: 2 hours Timing: Sporadic Chronicity: Chronic Time since last dose of antihypertensive: 2 hours Notable COSMETIC COUNSELOR blood pressures: 198/112 Context: normal sodium, not [...] Lab Results: Lab Results COMP. METABOLIC PANEL ([id number]) - Abnormal Result Value Ref Range NA [...] Encounter Procedures TROPONIN I COMP. METABOLIC PANEL (63695) LIPASE, SERUM CBC WITH DIFF URINALYSIS Orders Placed This Encounter Medications ketorolac (TORADOL) injection 30 mg metoclopramide HCl (REGLAN) injection 10 mg pnescoqafn-terbtexwrgukp-eann 50-325-40 mg tablet First Provider Eval: ED [...] Medications: Patient's Medications START taking these medications IACEAJDDLU-[id number]-[id number] 50-325-40 MG TABLET Take 1 tablet by [...] for follow-up Ulises Carter MD Specialty: PN-NEUROLOGY [facility] [address] [place] [phone] Electronically signed by: Chapito Contreras MD 07/07/[address] [facility] 2023-05-25 22:36:27 Formatting of this n ote [...] in no apparent distress Vira Huang RN [facility] 2023-05-25 17:15:02 Formatting of this n ote might be different from the original. Pt arrived via private car with c/o chest pain that started about 3 hours COSMETIC COUNSELOR, EKG done in triage, PA assessing pt at this time. Shalini Nair RN [facility]
[2024-12-02] MEDS ORDERED: PROMETHAZINE 25 MG TABLET ONE (20:19)
[2024-12-02] MEDS ORDERED: KETOROLAC 30 MG/ML INJ ONE (20:19)
[2024-12-02] MEDS ORDERED: methocarbamoL 500 MG TAB ONE (20:19)
[2024-12-02] MEDS ORDERED: HYDROCODONE/APAP 5/325 MG TAB ONE (20:20)
--- NOTE | 2024-12-02 21:20 | RAD REPORT ---
EXAMINATION: CT LUMBAR SPINE WITHOUT CONTRAST CLINICAL INDICATION: Male, 49 years old. LOWER BACK PAIN TECHNIQUE: Axial CT images were obtained through the lumbar spine in soft tissue and bone windows wit hout intravenous contrast. Coronal and Sagittal reformatted images were created from the data set. One or more of the following dose reduction techniques were used: Automated exposure control, adjustm ent of the mA and/ or kV according to patient size, and/or iterative reconstruction. Unless otherwise specified, incidental findings do not require dedicated imaging follow-up. COMPARISON: The abdomen and pelvis 10/30/2024 FINDINGS: For purposes of this dictation, it is assumed that there are 5 non rib-bearing lumbar type vertebrae, and the most caudal fully segmented lumbar vertebra is labeled L5. ALIGNMENT: The lumbar spine demonstrates normal alignment without scoliosis or spondylolisthesis. BONES: Vertebral body heights are preserved. No aggressive osseous lesions. Mild multilevel endplate and facet changes. Bilateral pars interarticularis defects at L5. DISCS: Mild disc height loss at L5-S1. LEVELS: Multilevel broad-based posterior disc bulges, most pronounced at L5-S1. Mild bilateral neural foraminal narrowing at L4-5 and more pronounced at L5-S1. No visualized abnormality within the spinal canal. SOFT TISSUE: No soft tissue abnormalities. IMPRESSION: No acute lumbar spine abnormalities. Spondylotic changes as above, contributing to mild degrees of neural foraminal narrowing at L4-5 and more so at L5-S1 bilaterally. Bilateral L5 pars interarticularis defects.
--- NOTE | 2024-12-02 21:45 | EDPHYS ---
Physician Documentation [facility] Name: Carrington Dumont Age: 49 yrs Sex: Male : 1975 Arrival Date: 12/02/2024 Time: 19:34 Bed DX3 Private MD: ED Physician Jadiel Rome HPI: 12/02 20:00 This 49 yrs old Male presents to ER via Unassigned with complaints of Leg Pain.sp4 12/03 21:44 Patient presents with complaint of acute left pain left buttock pain traveling down the sp4 left leg.. Historical: - Allergies: 12/02 20:06 PENICILLINS; iw - PMHx: 20:06 Hypertension; coronary atherosclerosis; Hypothyroidism; iw - PSHx: 20:06 Cholecystectomy; Stented artery; iw - Immunization history:: Adult Immunizations unknown. - Infectious Disease History:: Denies. - Family history:: not pertinent. - Social history:: Smoking status: unknown. ROS: 12/03 21:44 Constitutional: Negative for fever, chills, and weight loss, positive left leg pain sp4 left buttock pain All other systems are negative, Exam: 21:44 Constitutional: This is a well developed, well nourished patient who is awake, alert, sp4 and in no acute distress. Head/Face: Normocephalic, atraumatic. Eyes: Pupils equal round and reactive to light, extra-ocular motions intact. Lids and lashes normal. Conjunctiva and sclera are not injected. Cornea within normal limits. Periorbital areas with no swelling, redness, or edema. ENT: Nares patent. No nasal discharge, no septal abnormalities noted. Tympanic membranes are normal and external auditory canals are clear. Oropharynx with no redness, swelling, or masses, exudates, or evidence of obstruction, uvula midline. Mucous membranes moist. Neck: Trachea midline, no thyromegaly or masses palpated, and no cervical lymphadenopathy. Supple, full range of motion without nuchal rigidity, or vertebral point tenderness. Chest/axilla: Normal chest wall appearance and motion. Nontender with no deformity. No lesions are appreciated. Cardiovascular: Regular rate and rhythm with a normal S1 and S2. No gallops, murmurs, or rubs. Normal PMI, no JVD. No pulse deficits. Respiratory: Lungs have equal breath sounds bilaterally, clear to auscultation and percussion. No rales, rhonchi or wheezes noted. No increased work of breathing, no retractions or nasal flaring. Abdomen/GI: Soft, with normal bowel sounds. No distension or tympany. No guarding or rebound. No evidence of tenderness throughout. Back: No spinal tenderness. No costovertebral tenderness. Skin: Warm, dry with normal turgor. Normal color with no rashes, no lesions, and no evidence of cellulitis. MS/ Extremity: Pulses equal, no cyanosis. Neurovascular intact. Full, normal range of motion. Neuro: Awake and alert, GCS 15, oriented to person, place, time, and situation. Cranial nerves II-XII grossly intact. Motor strength 5/5 in all extremities. Sensory grossly intact. Psych: Awake, alert, with orientation to person, place and time. Behavior, mood, and affect are within normal limits Vital Signs: 12/02 20:08 BP 150 / 87; Pulse 96; Resp 18; Temp 97.3; Pulse Ox 98% ; Weight 108.86 kg; Height 5 iw ft. 8 in. ; Pain 10/10; 20:08 Body Mass Index 36.49 (108.86 kg, 172.72 cm) iw 20:08 Pain Scale: Adult iw [place] Coma Score: 12/03 21:44 Eye Response: spontaneous(4). Motor Response: obeys commands(6). Verbal Response: sp4 oriented(5). Total: 15. MDM: 12/02 20:00 Medical Screening Exam initiated sp4 21:38 ED course: EXAMINATION: CT LUMBAR SPINE WITHOUT CONTRAST CLINICAL INDICATION: Male, 49 sp4 years old. LOWER BACK PAIN TECHNIQUE: Axial CT images were obtained through the lumbar spine in soft tissue and bone windows without intravenous contrast. Coronal and Sagittal reformatted images were created from the data set. One or more of the following dose reduction techniques were used: Automated exposure control, adjustment of the mA and/ or kV according to patient size, and/or iterative reconstruction. Unless otherwise specified, incidental findings do not require dedicated imaging follow-up. COMPARISON: The abdomen and pelvis 10/30/2024 FINDINGS: For purposes of this dictation, it is assumed that there are 5 non rib-bearing lumbar type vertebrae, and the most caudal fully segmented lumbar vertebra is labeled L5. ALIGNMENT: The lumbar spine demonstrates normal alignment without scoliosis or spondylolisthesis. BONES: Vertebral body heights are preserved. No aggressive osseous lesions. Mild multilevel endplate and facet changes. Bilateral pars interarticularis defects at L5. DISCS: Mild disc height loss at L5-S1. LEVELS: Multilevel broad-based posterior disc bulges, most pronounced at L5-S1. Mild bilateral neural foraminal narrowing at L4-5 and more pronounced at L5-S1. No visualized abnormality within the spinal canal. SOFT TISSUE: No soft tissue abnormalities. IMPRESSION: No acute lumbar spine abnormalities. Spondylotic changes as above, contributing to mild degrees of neural foraminal narrowing at L4-5 and more so at L5-S1 bilaterally. Bilateral L5 pars interarticularis defects. . 12/03 21:44 Differential diagnosis: closed fracture, contusion, abrasion, tendonitis. Data sp4 reviewed: vital signs, nurses notes, radiologic studies, CT scan. Consideration of Admission/Observation Escalation of care including admission/observation considered. 12/02 20:26 Order name: Glucose, Ancillary Testing; Complete Time: 20:28 EDMS 12/02 20:28 Order name: CT Lumbar Spine Wo Con; Complete Time: 21:35 sp4 12/02 20:08 Order name: Accucheck Blood Glucose; Complete Time: 20:14 sp4 Administered Medications: 12/02 20:24 Drug: Ketorolac IM 60 mg IM once Route: IM; Site: left deltoid; iw 22:03 Follow up: Response: No adverse reaction; Marked relief of symptoms; Pain is decreased ha1 20:24 Drug: HYDROcodone-acetaminophen PO 5 mg-325 mg 2 tabs PO once Route: PO; iw 22:03 Follow up: Response: No adverse reaction; Marked relief of symptoms; Pain is decreased ha1 20:24 Drug: Promethazine PO 25 mg PO once Route: PO; iw 22:03 Follow up: Response: No adverse reaction; Marked relief of symptoms; Pain is decreased ha1 20:24 Drug: Methocarbamol PO 1500 mg PO once Route: PO; iw 22:03 Follow up: Response: No adverse reaction; Marked relief of symptoms ha1 Point of Care Testing: Blood Glucose: 20:14 Blood Glucose: 163 mg/dL; iw Ranges: Critical Glucose Levels:Adult <50 mg/dl or >400 mg/dl <40 mg/dl or >180 mg/dl Disposition: 12/03 21:44 Chart complete. sp4 Disposition Summary: 12/02/24 21:44 Discharge Ordered Notes: Location: Home sp4 Problem: new sp4 Symptoms: have improved sp4 Condition: Stable sp4 Diagnosis - Sciatica, left side sp4 Followup: sp4 - With: Kalyan Baugh DO - When: 7 - 10 days - Reason: Recheck today's complaints Discharge Instructions: - Discharge Summary Sheet sp4 - Sciatica sp4 Forms: - Patient Portal Instructions sp4 Prescriptions: - tramadol 100 mg Oral tablet - take 1 tablet ORAL route every 8 hours PRN pain; 30 tablet; Refills: 0, Product sp4 Selection Permitted - Ibuprofen 800 mg Oral tablet - take 1 tablet ORAL route every 8 hours As needed take with food; 60 tablet; sp4 Refills: 0, Product Selection Permitted - Prednisone 20 mg Oral Tablet - take 2 tablets ORAL route once daily for 5 days; 10 tablet; Refills: 0, Product sp4 Selection Permitted - methocarbamol 750 mg Oral tablet - take 2 tablets ORAL route every 8 hours for 10 days PRN pain together with sp4 Tramadol; 60 tablet; Refills: 0, Product Selection Permitted Signatures: Dispatcher [employer] Lou Weiss RN RN iw Ayala, Heidy, RN RN ha1 Jadiel Rome MD MD sp4
--- NOTE | 2024-12-02 21:45 | ER ---
Nurse's Notes [facility] Name: Carrington Dumont Age: 49 yrs Sex: Male : 1975 Arrival Date: 12/02/2024 Time: 19:34 Bed DX3 Private MD: Diagnosis: Sciatica, left side Presentation: 12/02 20:06 Chief complaint: Patient states: pain to left lower back radiating to left leg X 3-4 iw days. Coronavirus screen: At this time, the client does not indicate any symptoms associated with coronavirus-19. Ebola Screen: No symptoms or risks identified at this time. Risk Assessment: Do you want to hurt yourself or someone else? Patient reports no desire to harm self or others. 20:06 Method Of Arrival: Ambulatory iw 20:06 Acuity: DAYANNA 3 iw 20:08 Initial Sepsis Screen: Does the patient meet any 2 criteria? No. Patient's initial iw sepsis screen is negative. Does the patient have a suspected source of infection? No. Patient's initial sepsis screen is negative. Onset of symptoms was November 29, 2024. 20:25 Acuity: DAYANNA 4 iw Historical: - Allergies: 20:06 PENICILLINS; iw - PMHx: 20:06 Hypertension; coronary atherosclerosis; Hypothyroidism; iw - PSHx: 20:06 Cholecystectomy; Stented artery; iw - Immunization history:: Adult Immunizations unknown. - Infectious Disease History:: Denies. - Family history:: not pertinent. - Social history:: Smoking status: unknown. Screenin:43 [facility] ED Fall Risk Assessment (Adult) History of falling in the last 3 months, iw including since admission No falls in past 3 months (0 pts) Confusion or Disorientation No (0 pts) Intoxicated or Sedated No (0 pts) Impaired Gait No (0 pts) Mobility Assist Device Used No (0 pt) Altered Elimination No (0 pt) Score/Fall Risk Level 0 - 2 = Low Risk Maintained a safe environment. Abuse screen: Denies threats or abuse. Nutritional screening: No deficits noted. Tuberculosis screening: No symptoms or risk factors identified. Assessment: 21:42 General: Appears uncomfortable, Behavior is calm, cooperative. Pain: Complains of pain iw in left low back Pain radiates to left leg Pain. Neuro: Level of Consciousness is awake, alert, obeys commands, Oriented to person, place, time, situation, Moves all extremities. Full function. Cardiovascular: Patient's skin is warm and dry. Respiratory: Respiratory effort is even, unlabored, Respiratory pattern is regular. Derm: Skin is intact, is healthy with good turgor. Musculoskeletal: Range of motion: intact in all extremities, Reports pain in back and left leg. 22:01 Reassessment: Patient and/or family updated on plan of care and expected duration. Pain ha1 level reassessed. Patient is alert, oriented x 3, equal unlabored respirations, skin warm/dry/pink. Patient states symptoms have improved. Vital Signs: 20:08 BP 150 / 87; Pulse 96; Resp 18; Temp 97.3; Pulse Ox 98% ; Weight 108.86 kg; Height 5 iw ft. 8 in. ; Pain 10/10; 20:08 Body Mass Index 36.49 (108.86 kg, 172.72 cm) iw 20:08 Pain Scale: Adult iw [place] Coma Score: 12/03 21:44 Eye Response: spontaneous(4). Motor Response: obeys commands(6). Verbal Response: sp4 oriented(5). Total: 15. ED Course: 12/02 19:37 Patient arrived in ED. ra3 20:00 Jadiel Rome MD is Attending Physician. sp4 20:07 Triage completed. iw 20:07 Arm band placed on right wrist. ha1 20:48 CT Lumbar Spine Wo Con In Process Unspecified. EDMS 21:43 Patient has correct armband on for positive identification. Provided Education on: . iw 21:43 No provider procedures requiring assistance completed. Patient did not have IV access iw during this emergency room visit. 21:44 Kalyan Baugh DO is Referral Physician. sp4 Administered Medications: 20:24 Drug: Ketorolac IM 60 mg IM once Route: IM; Site: left deltoid; iw 22:03 Follow up: Response: No adverse reaction; Marked relief of symptoms; Pain is decreased ha1 20:24 Drug: HYDROcodone-acetaminophen PO 5 mg-325 mg 2 tabs PO once Route: PO; iw 22:03 Follow up: Response: No adverse reaction; Marked relief of symptoms; Pain is decreased ha1 20:24 Drug: Promethazine PO 25 mg PO once Route: PO; iw 22:03 Follow up: Response: No adverse reaction; Marked relief of symptoms; Pain is decreased ha1 20:24 Drug: Methocarbamol PO 1500 mg PO once Route: PO; iw 22:03 Follow up: Response: No adverse reaction; Marked relief of symptoms ha1 Medication: 22:02 VIS not applicable for this client. ha1 Point of Care Testing: Blood Glucose: 20:14 Blood Glucose: 163 mg/dL; iw Ranges: Outcome: 21:44 Discharge ordered by . beatris 22:01 Discharged to home ambulatory, with family, ha1 22:01 Condition: stable 22:01 Discharge instructions given to patient, Instructed on discharge instructions, follow up and referral plans. medication usage, Demonstrated understanding of instructions, follow-up care, medications, Prescriptions given X 4, 22:04 Patient left the ED. ha1 Signatures: Dispatcher [employer] EDMS Lou Sierra RN RN Debbi Yuan RN RN ha1 Jadiel Rome MD MD sp4 Alva, Ruby ra3 Corrections: (The following items were deleted from the chart) 20:08 20:06 Chief complaint: Patient states: pain to left lower back radiating to left leg iw iw 20:09 20:08 Pulse 96bpm; Resp 18bpm; Pulse Ox 98%; Temp 97.3F; 108.86 kg; Height 5 ft. 8 in.; iw BMI: 36.4; Pain 10/10, Adult; iw
[2024-12-02 22:09] VITALS: BP 150/87; TEMP 97.3; O2SAT 98
== END 2024-12-02 22:04 | disposition home or self-care (01) ==
LOC: ER 19:34
DX: M54.32 Sciatica, left side (principal)
CPT/HCPCS: 82947; 72131; 96372; 99284; Q0169

== ENCOUNTER 2024-12-11 20:53 | Emergency (ER) | payer OTHER ==
--- OUTSIDE RECORDS SUMMARY | 2024-12-11 21:02 | XMS REPORT | Continuity of Care Document ---
Author Name Unknown Address [address] [facility]. [address] [place] [address] [facility] Address [address] [facility] [address] [place] [address] Care Team Providers Care Rug Designer Name Role Phone PCP, PATIENT DOES NOT HAVE A Primary Care Physic bala Unavailable ELSA WHITE Attending Clinician Unavailable ELSA WHITE Attending Clinician Unavailable lEsa White NP Attending Clinician [phone] Doctor Unassigned, [place] Attending Clinician U BABS Cohen Attending Clinician Unavailable CHAPITO CONTRERAS Attending Clinician Unavailable CHAPITO CONTRERAS Attending Clinician Unavailable Nidia SOLANO Attending Clinician Unavailable Nidia SOLANO Attending Clinician Unavailable JOSE FRANCISCO WALTERS Attending Clinician Unavailable Jose Francisco Walters MD Attending Clinician [phone] LOREN TAM Attending Clinician Unavailable LOREN TAM Attending Clinician Unavailable Loren Tam DO Attending Clinician [phone] Patrick Garrett Attending Clinician [phone] PATRICK VERGARA Attending Clinician Unavailable SOFIA ESCOBAR Attending Clinician Unavailable SOFIA ESCOBAR Attending Clinician Unavailable MARIE MORALES Attending Clinician UnavailMarie Andrews DO Attending Clinician [phone] SAQIB CLARKE Attending Clinician Unavailable Saqib Clarke DO Attending Clinician [phone] BENJAMIN ASHFORD Attending Clinician Unavailable Benjamin Ashford MD Attending Clinician [phone] Geoff Cardona MD Attending Clinician [phone] GEOFF CARDONA Attending Clinician Unavailable Kiki Mathur MD Attending Clinician [phone] KIKI MATHUR Attending Clinician UnavailGricelda Sherman MD Attending Clinician [phone] MARIBELL CEDILLO Attending Clinician UnavailBABS Garza Admitting Clinician Unavailable JOSE FRANCISCO WALTERS Admitting Clinician Unavailable CHAPITO CONTRERAS Admitting Clinician Unavailable LOREN TAM Admitting Clinician Unavailable PATRICK VERGARA Admitting Clinician Unavailable Nidia SOLANO Admitting Clinician Unavailable MARIE MORALES Admitting Clinician UnavailGricelda Morales MD Admitting Clinician [phone] EMERGENCY ROOM, EMERGENCY Admitting Clinician Un available Payers Payer Name Policy Type Policy Number Effective Date Expirati on Date Source [facility] [id number] 2023 00:00:00 Problems Condition Name Condition Details Condition Category Status Onset Date Resolution Date Last Treatment Date Treating Clinician Comments Source Obesity (BMI 30-39.9) Obesity (BMI 30-39.9) Disease Active 720 00:00: 00 [facility] Cigarette nicotine dependence without complicati on Cigarette nicotine dependence without complicati on Disease Active 2019-10 00:00: 00 [facility] Cigarette nicotine dependence without complicati on Cigarette nicotine dependence without complicati on Disease Active 2019-10 00:00: 00 [facility] Atypical chest pain Atypical chest pain Disease Active 2019-10 00:00: 00 [facility] Essential hypertensi on Essential hypertensi on Disease Active 2019-10 00:00: 00 [facility] No known active problems No known active problems Disease [facility] Allergies, Adverse Reactions, Alerts Allergy Name Allergy Type Status Severity Reaction(s) Onset Date Inactive Date Treating Clinician Comments Source Penicill in Propensi ty to adverse reaction s Active Unknown - See comments 03-30 00:00: 00 [facility] PENICILL IN DRUG INGREDI Active Unknown-Cmnt 03-30 00:00: 00 [facility] NO KNOWN ALLERGIE S Drug Class Active [facility] Social History Social Habit Start Date Stop Date Quantity Comments Source History of tobacco use Cigarette Smoker [facility] History SDOH Alcohol Frequency [facility] History SDOH [facility] Alcohol Binge [facility] Alcoholic beverage intake 2024-11-13 00:00:00 2024-11-13 00:00:00 Current drinker of alcohol (finding) [facility] Alcohol intake 2024-02-04 00:00:00 2024-02-04 00:00:00 Current drinker of alcohol (finding) [facility] Exposure to SARS-CoV-2 (event) 2023-02-10 00:00:00 2023-02-20 18:06:00 Not sure [facility] Cigarettes smoked current (pack per day) - Reported 2021-05-08 00:00:00 2021-05-08 00:00:00 [facility] Alcohol Comment 2021-05-08 00:00:00 2021-05-08 00:00:00 6beers on the weekend [facility] Tobacco use and exposure 2021-05-08 00:00:00 2021-05-08 00:00:00 Smokeless tobacco non-user [facility] History of Social function 2020-08-29 00:00:00 2020-08-29 00:00:00 [facility] Sex assigned at 1975 00:00:00 1975 00:00:00 [facility] Smoking Status Start Date Stop Date Source Smokes tobacco daily 2021-05-08 00:00:00 [facility] Never smoker [facility] Unknown if ever smoked Unive [facility] Medications Ordered Medication Name Filled Medication Name Start Date Stop Date Current Medication? Ordering Clinician Indication Dosage Frequency Signature (SIG) Comments Components Source amoxicillin 500 mg tablet 1-25 00:00: 00 11-24 05:59 :00 Yes [id number] 500mg Take 1 tablet by mouth 3 (three) times daily for 10 days. [facility] iopamidol (ISOVUE 370-500 mL) injection 85 mL 02-03 18:00: 00 02-03 18:00 :00 No [id number] 85mL 85 mL, Intravenou s, ONCE, 1 dose, On Fri02/04/24 at 1300, Routine [facility] morpHINE (2 mg/mL) injection 2 mg 02-03 17:45: 00 02-03 18:48 :00 No 2mg 2 mg, Slow IV Push, ONCE, 1 dose, On Fri02/04/24 at 1245, STAT [facility] ondansetron (ZOFRAN (PF)) injection 4 mg 02-03 16:30: 00 02-03 17:15 :00 No 4mg 4 mg, Slow IV Push, ONCE, 1 dose, On Fri02/04/24 at 1130, FAWN [facility] ketorolac (TORADOL) injection 15 mg 02-03 16:30: 00 02-03 17:16 :00 No 15mg 15 mg, Slow IV Push, ONCE, 1 dose, On Fri02/04/24 at 1130, FAWN [facility] sodium chloride (NS) injection 5 mL 02-03 15:28: 49 Yes 5mL 5 mL, Intravenou s, PRN, Starting on Fri02/04/24 at 1028, Until Discontinu ed, Routine, IV line flushing [facility] dicyclomine (BENTYL) injection 20 mg 12-27 09:15: 00 Yes 20mg 20 mg, Intramuscu lar, QID, First dose on Fri12/28/23 at 0415, Until Discontinu ed, Routine [facility] maalox:diph enhydrAMINE :lidocaine 2 % viscous 1:1:1 (FIRST-MOUT HWASH BLM) oral suspension 15 mL 12-27 08:30: 00 12-27 08:27 :00 No 15mL 15 mL, Oral, ONCE, 1 dose, On [place] 12/28/23 at 0330, Routine [facility] maalox:diph enhydrAMINE :lidocaine 2 % viscous 1:1:1 (FIRST-MOUT [facility]) oral suspension 15 mL 11-06 07:15: 00 11-06 07:38 :00 No 15mL 15 mL, Oral, ONCE, 1 dose, On [place] 11/06/23 at 0115, Routine [facility] famotidine (PEPCID (PF)) injection 20 mg 11-06 07:15: 00 11-06 07:38 :00 No 20mg 20 mg, Slow IV Push, ONCE, 1 dose, On [place] 11/06/23 at 0115, FAWN [facility] NaCl 0.9% (NS) bolus infusion 1,000 mL 11-06 07:15: 00 11-06 07:38 :00 No 1000mL at 999 mL/hr, 1,000 mL, IV Infusion, ONCE, 1 dose, On [place] 11/06/23 at 0115, STAT [facility] ondansetron (ZOFRAN (PF)) injection 4 mg 11-06 07:15: 00 11-06 06:19 :00 No 4mg 4 mg, Slow IV Push, ONCE, 1 dose, On Ale 11/06/23 at 0115, FAWN [facility] dicyclomine (BENTYL) injection 20 mg 11-06 07:00: 00 11-06 07:00 :00 No 20mg 20 mg, Intramuscu lar, ONCE, 1 dose, On [place] 11/06/23 at 0100, Routine [facility] dicyclomine 20 mg tablet 11-06 00:00: 00 Yes 20mg Take 1 tablet by mouth 4 (four) times daily. Indication s: abdominal pain [facility] famotidine (PEPCID) 40 mg tablet 11-06 00:00: 00 Yes [id number] 40mg Take 1 tablet by mouth daily. [facility] acetaminoph en (TYLENOL) tablet 650 mg 11-01 09:30: 00 11-01 09:30 :00 No 650mg 650 mg, Oral, ONCE, 1 dose, On 11/01/23 at 0330, FAWN [facility] iopamidol (ISOVUE 370-500 mL) injection 100 mL 11-01 09:30: 00 11-01 09:30 :00 No [id number] 100mL 100 mL, Intravenou s, ONCE, 1 dose, On 11/01/23 at 0330, Routine [facility] morpHINE (4 mg/mL) injection 4 mg 11-01 07:00: 00 11-01 06:56 :00 No 4mg 4 mg, Slow IV Push, ONCE, 1 dose, On 11/01/23 at 0100, STAT [facility] ketorolac (TORADOL) injection 30 mg 11-01 06:45: 00 11-01 06:00 :00 No 30mg 30 mg, Slow IV Push, ONCE, 1 dose, On 11/01/23 at 0045, FAWN [facility] NaCl 0.9% (NS) bolus infusion 1,000 mL 11-01 06:45: 00 11-01 07:59 :00 No 1000mL at 999 mL/hr, 1,000 mL, IV Piggyback, ONCE, 1 dose, On 11/01/23 at 0045, STAT [facility] ondansetron (ZOFRAN (PF)) injection 4 mg 11-01 06:00: 00 11-01 05:59 :00 No 4mg 4 mg, Slow IV Push, ONCE, 1 dose, On 11/01/23 at 0000, FAWN [facility] morpHINE (4 mg/mL) injection 4 mg 11-01 06:00: 00 11-01 06:00 :00 No 4mg 4 mg, Slow IV Push, ONCE, 1 dose, On 11/01/23 at 0000, STAT [facility] famotidine (PEPCID) 20 mg tablet 11-01 00:00: 00 Yes [id number] 20mg Take 1 tablet by mouth 2 (two) times daily. [facility] dicyclomine 20 mg tablet 11-01 00:00: 00 Yes [id number] 20mg Take 1 tablet by mouth 3 (three) times daily as needed for Abdominal pain. [facility] iopamidol (ISOVUE 370-500 mL) injection 100 mL 10-23 08:00: 00 10-23 08:00 :00 No [id number] 100mL 100 mL, Intravenou s, ONCE, 1 dose, On [place] 10/23/23 at 0200, Routine [facility] FENTanyl PF (SUBLIMAZE (PF)) injection 50 mcg 10-23 08:00: 00 10-23 07:01 :00 No 50ug 50 mcg, Slow IV Push, ONCE, 1 dose, On [place] 10/23/23 at 0200, Routine [facility] ketorolac (TORADOL) injection 30 mg 10-23 07:15: 00 10-23 06:08 :00 No 30mg 30 mg, Slow IV Push, ONCE, 1 dose, On [place] 10/23/23 at 0115, Routine [facility] ondansetron (ZOFRAN (PF)) injection 4 mg 10-23 06:15: 00 10-23 06:08 :00 No 4mg 4 mg, Slow IV Push, ONCE, 1 dose, On [place] 10/23/23 at 0015, FAWN [facility] ketorolac 10 mg tablet 10-23 00:00: 00 Yes [id number] 10mg Take 1 tablet by mouth every 6 (six) hours as needed for Pain (scale 7-10). [facility] iopamidol (ISOVUE 370-500 mL) injection 100 mL 2022-10- 07:15: 00 09-26 07:15 :00 No [id number] 100mL 100 mL, Intravenou s, ONCE, 1 dose, On Fri09/26/23 at 0115, Routine [facility] ketorolac (TORADOL) injection 30 mg 2022-10 07:00: 00 09-26 06:12 :00 No 30mg 30 mg, Slow IV Push, ONCE, 1 dose, On Fri09/26/23 at 0100, Routine [facility] NaCl 0.9% (NS) bolus infusion 1,000 mL 2022-10 06:00: 00 09-26 06:15 :00 No 1000mL at 999 mL/hr, 1,000 mL, IV Infusion, ONCE, 1 dose, On Fri09/26/23 at 0000, FAWN [facility] morpHINE (4 mg/mL) injection 4 mg 2022-10 05:30: 00 09-26 05:19 :00 No 4mg 4 mg, Slow IV Push, ONCE, 1 dose, On Ale 09/25/23 at 2330, STAT [facility] lactulose (CEPHULAC) solution 60 mL 2022-10 05:15: 00 09-26 05:13 :00 No 60mL 60 mL, Oral, ONCE, 1 dose, On [place] 09/25/23 at 2315, FAWN [facility] ondansetron (ZOFRAN (PF)) injection 4 mg 2022-10 05:15: 00 09-26 05:13 :00 No 4mg 4 mg, Slow IV Push, ONCE, 1 dose, On [place] 09/25/23 at 2315, FAWN [facility] SEMAGLUTIDE , WEIGHT LOSS, SC 2022-10 02:30: 30 Yes inject under the skin. [facility] iopamidol (ISOVUE 370-500 mL) injection 75 mL 2022-10 09:00: 00 08-24 09:00 :00 No [id number] 75mL 75 mL, Intravenou s, ONCE, 1 dose, On Fri08/24/23 at 0300, Routine [facility] ondansetron (ZOFRAN (PF)) injection 4 mg 2022-10 06:30: 00 08-24 08:15 :00 No 4mg 4 mg, Slow IV Push, ONCE, 1 dose, On Fri08/24/23 at 0130, FAWN [facility] morpHINE (4 mg/mL) injection 4 mg 2022-10 06:30: 00 08-24 08:14 :00 No 4mg 4 mg, Slow IV Push, ONCE, 1 dose, On Fri08/24/23 at 0130, STAT [facility] aspirin tablet 325 mg 2022-10 05:15: 00 08-24 05:18 :00 No 325mg 325 mg, Oral, ONCE, 1 dose, On Fri08/24/23 at 0015, STAT [facility] ketorolac (TORADOL) injection 30 mg 07-07 10:45: 00 07-07 09:53 :00 No 30mg 30 mg, Slow IV Push, ONCE, 1 dose, On Fri07/07/23 at 0545, Routine [facility] metoclopram glenroy HCl (REGLAN) injection 10 mg 07-07 09:45: 00 07-07 09:54 :00 No 10mg 10 mg, Slow IV Push, ONCE, 1 dose, On Fri07/07/23 at 0445, FAWN [facility] butalbital- acetaminoph en-caff 50-325-40 mg tablet 07-07 00:00: 00 Yes [id number] 1{tbl} Take 1 tablet by mouth every 6 (six) hours as needed (Headache) . [facility] metFORMIN (GLUCOPHAGE ) tablet 500 mg 05-26 13:00: 00 Yes 500mg 500 mg, Oral, BID MEALS, First dose on Fri05/26/23 at 0800, Until Discontinu ed, Routine [facility] ketorolac (TORADOL) injection 15 mg 05-26 03:00: 00 05-26 02:19 :00 No 15mg 15 mg, Slow IV Push, ONCE, 1 dose, [facility] 2200[facility] ([facility] 2 % ointment 0.5 Inch 05-25 23:30: 00 05-26 01:27 :00 No .5[in_u s] 0.5 Inch, Transderma l (Apply To Skin), ONCE, 1 dose, On 05/25/23 at 1830, [facility] maalox:diph enhydrAMINE :lidocaine 2 % viscous 1:1:1 (FIRST-MOUT [facility]) oral suspension 15 mL 05-25 23:30: 00 05-26 00:49 :00 No 15mL 15 mL, Oral (Swish & Swallow), ONCE, 1 dose, On 05/25/23 at 1830, Routine [facility] aspirin chewable tablet 324 mg 05-25 23:30: 00 05-25 22:24 :00 No 324mg 324 mg, Oral, ONCE, 1 dose, On 05/25/23 at 1830, Routine [facility] metFORMIN 500 mg tablet 05-25 00:00: 00 Yes [id number] 500mg Take 1 tablet by mouth 2 (two) times daily. [facility] naproxen (NAPROSYN) 500 mg tablet 05-25 00:00: 00 02-03 00:00 :00 No [id number] 500mg Take 1 tablet by mouth 2 (two) times daily with meals. [facility] cloNIDine (CATAPRES) tablet 0.2 mg 02-21 00:45: 00 02-21 01:50 :00 No .2mg 0.2 mg, Oral, ONCE, 1 dose, On [facility] 02/20/23 at 1945, [facility] ibuprofen (IBU) tablet 600 mg 02-20 23:30: 00 02-20 23:30 :00 No 600mg 600 mg, Oral, ONCE, 1 dose, On [place] 02/20/23 at 1830, FAWN [facility] ibuprofen 600 mg tablet 02-20 00:00: 00 02-03 00:00 :00 No [id number] 600mg Take 1 tablet by mouth every 6 (six) hours as needed for Pain (scale 4-6) for up to 30 doses. [facility] iopamidol (ISOVUE 370-500 mL) injection 100 mL 12-29 09:15: 00 12-29 09:15 :00 No [id number] 100mL 100 mL, Intravenou s, ONCE, 1 dose, On 12/29/22 at 0415, Routine [facility] ketorolac (TORADOL) injection 30 mg 12-29 09:00: 00 12-29 07:53 :00 No 30mg 30 mg, Slow IV Push, ONCE, 1 dose, On 12/29/22 at 0400, Routine [facility] ondansetron (ZOFRAN) 4 mg tablet 12-29 00:00: 00 Yes [id number] 4mg Take 1 tablet by mouth every 8 (eight) hours as needed for Nausea and Vomiting (N/V). [facility] ketorolac 10 mg tablet 12-29 00:00: 00 Yes [id number] 10mg Take 1 tablet by mouth every 6 (six) hours as needed for Pain (scale 7-10). [facility] maalox:diph enhydrAMINE :lidocaine 2 % viscous 1:1:1 (FIRST-MOUT HWASH BLM) oral suspension 15 mL 11-21 08:45: 00 11-21 08:36 :00 No 15mL 15 mL, Oral, ONCE, 1 dose, On [place] 11/21/22 at 0245, Routine [facility] metoclopram glenroy HCl (REGLAN) tablet 10 mg 06-02 12:30: 00 Yes 10mg 10 mg, Oral, AC, First dose on 06/02/22 at 0730, Until Discontinu ed, Routine [facility] dexamethaso ne (DECADRON PHOSPHATE) injection 10 mg 06-02 06:00: 00 06-02 04:55 :00 No 10mg 10 mg, Oral, ONCE, 1 dose, On Fri06/02/22 at 0100, Routine [facility] butalbital- acetaminoph en-caff (ESGIC) 50-325-40 mg tablet 1 tablet 06-02 05:00: 00 06-02 04:56 :00 No 1{tbl} 1 tablet, Oral, ONCE, 1 dose, On Fri06/02/22 at 0000, [facility] diphenhydrA MINE (BENADRYL) tablet 50 mg 06-02 05:00: 00 06-02 04:54 :00 No 50mg 50 mg, Oral, ONCE, 1 dose, On Fri06/02/22 at 0000, [facility] levothyroxi ne (SYNTHROID) tablet 100 mcg 05-29 11:00: 00 Yes 100ug 100 mcg, Oral, QAM-0600, First dose on Fri05/29/22 at 0600, Until Discontinu ed, Routine [facility] levothyroxi ne 200 mcg tablet 05-28 13:18: 02 05-28 00:00 :00 No 300ug Take 300 mcg by mouth every morning. [facility] levothyroxi ne 300 mcg tablet 05-28 00:00: 00 08-27 05:59 :00 No [id number] 300ug Take 1 tablet by mouth every morning for 90 days. [facility] ketorolac (TORADOL) injection 15 mg 05-06 06:30: 00 05-06 05:30 :00 No 15mg 15 mg, Slow IV Push, ONCE, 1 dose, On Fri05/06/22 at 0130, [facility] iopamidol (ISOVUE 370-500 mL) injection 65 mL 05-06 06:00: 00 05-06 06:15 :00 No [id number] 65mL 65 mL, Intravenou s, ONCE, 1 dose, On Fri05/06/22 at 0115, Routine [facility] benzonatate 200 mg capsule 05-06 00:00: 00 Yes [id number] 200mg Take 1 capsule by mouth 3 (three) times daily as needed for Cough for up to 20 doses. [facility] ondansetron 4 mg disintegrat ing tablet 05-06 00:00: 00 Yes [id number] 4mg Take 1 tablet by mouth every 8 (eight) hours as needed for Nausea and Vomiting (N/V). [facility] ibuprofen 600 mg tablet 05-06 00:00: 00 02-20 00:00 :00 No [id number] 600mg Take 1 tablet by mouth every 6 (six) hours as needed for Pain (scale 4-6). [facility] molnupiravi r 200 mg capsule 05-06 00:00: 00 05-12 04:59 :00 No [id number] 800mg Take 4 capsules by mouth every 12 (twelve) hours for 5 days. [facility] magnesium sulfate in water 2 gram/50 mL (4 %) infusion 2 g 05-01 13:45: 00 05-01 14:06 :00 No 2g 2 g, IV Piggyback, Administer over 60 Minutes, ONCE, 1 dose, On Fri05/01/22 at 0845, Routine [facility] diphenhydrA MINE (BENADRYL) injection 50 mg 05-01 12:45: 00 05-01 12:43 :00 No 50mg 50 mg, Slow IV Push, ONCE, 1 dose, On Fri05/01/22 at 0745, STAT [facility] maalox:diph enhydrAMINE :lidocaine 2 % viscous 1:1:1 (FIRST-MOUT HWASH BLM) oral suspension 15 mL 02-08 07:15: 00 02-08 06:14 :00 No 15mL 15 mL, Oral, ONCE, 1 dose, On Fri02/08/22 at 0215, FAWN [facility] sucralfate 1 gram tablet 02-08 00:00: 00 Yes [id number] 1g Take 1 tablet by mouth before meals and at bedtime. [facility] ondansetron 4 mg disintegrat ing tablet 02-08 00:00: 00 Yes [id number] 4mg Take 1 tablet by mouth every 4 (four) hours as needed for Nausea and Vomiting (N/V). [facility] pantoprazol e 40 mg EC tablet 02-08 00:00: 00 Yes [id number] 40mg Take 1 tablet by mouth daily. [facility] maalox:diph enhydrAMINE :lidocaine 2 % viscous 1:1:1 ([facility] oral suspension 15 mL 2020-10 02:15: 00 10-15 01:17 :00 No 15mL 15 mL, Oral, ONCE, 1 dose, On Fri10/14/21 at 2015, Routine [facility] iopamidol (ISOVUE 370-500 mL) injection 120 mL 2020-10 01:45: 00 10-15 00:37 :00 No [id number] 120mL 120 mL, Intravenou s, ONCE, 1 dose, On Fri10/14/21 at 1945, Routine [facility] famotidine (PEPCID (PF)) injection 20 mg 2020-10 00:30: 00 10-15 00:26 :00 No 20mg 20 mg, Slow IV Push, ONCE, 1 dose, On Fri10/14/21 at 1830, Routine [facility] enalapril 20 mg tablet 05-15 17:24: 35 Yes 25mg Take 25 mg by mouth daily. [facility] levothyroxi ne 200 mcg tablet 05-15 17:24: 35 Yes 300ug Take 300 mcg by mouth every morning. [facility] enalapril 20 mg tablet 05-15 12:24: 35 Yes 25mg Take 25 mg by mouth daily. [facility] levothyroxi ne 200 mcg tablet 05-15 12:24: 35 Yes 300ug Take 300 mcg by mouth every morning. [facility] FENTanyl (ACTIQ) lollipop 600 mcg 05-08 19:45: 00 05-08 18:59 :00 No [id number] 600ug 600 mcg, Buccal, ONCE, 1 dose, [facility] 05/08/21 at 1445, Routine [facility] sulfamethox azole-trime thoprim (BACTRIM DS) 800-160 mg per tablet 05-08 00:00: 00 05-16 04:59 :00 No [id number] 1{tbl} Take 1 tablet by mouth 2 (two) times daily for 7 days. [facility] HYDROcodone -acetaminop hen (NORCO) 10-325 mg tablet 1 tablet 05-06 09:45: 00 05-06 08:44 :00 No 1{tbl} 1 tablet, Oral, ONCE, 1 dose, [place] 05/06/21 at 0445, Routine [facility] sulfamethox azole-trime thoprim 800-160 mg per tablet 05-06 00:00: 00 Yes [id number] 1{tbl} Take 1 tablet by mouth every 12 (twelve) hours. [facility] HYDROcodone -acetaminop hen 5-325 mg tablet 05-06 00:00: 00 05-14 04:59 :00 No [id number] 1{tbl} Take 1 tablet by mouth every 4 (four) hours as needed for Pain (scale 7-10) for up to 7 days. Indication s: acute pain [facility] ketorolac (TORADOL) injection 30 mg 03-15 06:30: 00 03-15 05:44 :00 No 30mg 30 mg, Slow IV Push, ONCE, 1 dose, [facility] 03/15/21 at 0130, Routine
burn crew member approving Restricted medication : CHAPITO CONTRERAS [facility] enalapril 20 mg tablet 03-15 06:19: 47 Yes 25mg Take 25 mg by mouth daily. [facility] levothyroxi ne 200 mcg tablet 03-15 06:19: 47 Yes 300ug Take 300 mcg by mouth every morning. [facility] iopamidol (ISOVUE 370-500 mL) injection 120 mL 03-15 06:00: 00 03-15 06:00 :00 No [id number] 120mL 120 mL, Intravenou s, ONCE, 1 dose, [facility] 03/15/21 at 0100, Routine [facility] KCL (KLOR-CON M20) tablet 40 mEq 03-15 05:45: 00 03-15 05:01 :00 No [id number] 40 mEq, Oral, ONCE, 1 dose, [facility] 03/15/21 at 0045, Routine [facility] ondansetron (ZOFRAN (PF)) injection 4 mg 03-15 05:30: 00 03-15 04:32 :00 No 4mg 4 mg, Slow IV Push, ONCE, 1 dose, [place] 03/15/21 at 0030, FAWN [facility] FENTanyl PF (SUBLIMAZE (PF)) injection 75 mcg 03-15 05:30: 00 03-15 04:32 :00 No 75ug 75 mcg, Slow IV Push, ONCE, 1 dose, [place] 03/15/21 at 0030, Routine [facility] traMADoL (ULTRAM) 50 mg tablet 03-15 00:00: 00 Yes [id number] 50mg Take 1 tablet by mouth every 6 (six) hours as needed for Pain (scale 4-6) or Pain (scale 7-10). Indication s: acute pain [facility] methocarbam oL 500 mg tablet 03-15 00:00: 00 Yes [id number] 500mg Take 1 tablet by mouth every 6 (six) hours as needed (MUSCLE SPASM). [facility] ibuprofen 800 mg tablet 03-15 00:00: 00 02-20 00:00 :00 No [id number] 800mg Take 1 tablet by mouth every 8 (eight) hours as needed for Pain (scale 4-6). [facility] pantoprazol e (PROTONIX) 80 mg in NaCl 0.9% (NS) 20 mL syringe 2019-10 00:15: 00 09-08 23:17 :00 No 80mg 80 mg, IV Push, ONCE, 1 dose, Fri09/08/20 at 1815, 20 mL [facility] maalox:diph enhydrAMINE :lidocaine2 %viscous 1:1:1: suspension (COMPOUNDED ) 2019-10 00:15: 00 09-08 23:16 :00 No 15mL 15 mL, Oral, ONCE, 1 dose, Fri09/08/20 at 1815, Routine [facility] sucralfate 1 gram tablet 2019-10 00:00: 00 Yes [id number] 1g Take 1 tablet by mouth before meals and at bedtime. [facility] dicyclomine (BENTYL) 10 mg capsule 2019-10 00:00: 00 Yes [id number] 10mg Take 1 capsule by mouth every 8 (eight) hours as needed for Abdominal pain. [facility] ondansetron 4 mg disintegrat ing tablet 2019-10 00:00: 00 Yes [id number] 4mg Take 1 tablet by mouth every 8 (eight) hours as needed for Nausea and Vomiting (N/V). [facility] omeprazole 20 mg capsule 2019-10 00:00: 00 10-09 05:59 :00 No [id number] 20mg Take 1 capsule by mouth daily for 30 days. [facility] ketorolac (TORADOL) injection 30 mg 2019-10 20:15: 00 09-06 19:14 :00 No 30mg 30 mg, Slow IV Push, ONCE, 1 dose, Fri09/06/20 at 1415, FAWN
Fa culty member approving Restricted medication : Nidia SOLANO [facility] FENTanyl PF (SUBLIMAZE (PF)) injection 50 mcg 2019-10 18:45: 00 09-06 17:38 :00 No 50ug 50 mcg, Slow IV Push, ONCE, 1 dose, Fri09/06/20 at 1245, STAT [facility] iohexol (OMNIPAQUE 350 BULK-500 mL) injection 150 mL 2019-10 18:15: 00 09-06 17:00 :00 No 150mL 150 mL, Intravenou s, ONCE, 1 dose, Fri09/06/20 at 1215, Routine [facility] ondansetron (ZOFRAN (PF)) injection 4 mg 2019-10 17:30: 00 09-06 16:33 :00 No 4mg 4 mg, Slow IV Push, ONCE, 1 dose, Fri09/06/20 at 1130, FAWN [facility] morpHINE injection 4 mg 2019-10 17:30: 00 09-06 16:33 :00 No 4mg 4 mg, Slow IV Push, ONCE, 1 dose, Fri09/06/20 at 1130, STAT [facility] ibuprofen 600 mg tablet 2019-10 00:00: 00 03-14 00:00 :00 No [id number] 600mg Take 1 tablet by mouth every 6 (six) hours as needed for Pain (scale 4-6). [facility] Polyethylen e Glycol 3350 (MIRALAX) powder 17 g 2019-10 13:00: 00 08-30 11:55 :00 No 17g 17 g, Oral, ONCE, 1 dose, Fri08/30/20 at 0700, Routine [facility] aspirin 81 mg chewable tablet 2019-10 00:00: 00 09-30 05:59 :00 No [id number] 81mg Take 1 tablet by mouth daily for 30 days. [facility] levothyroxi ne 125 mcg tablet 2019-10 23:22: 41 08-29 00:00 :00 No 300ug Take 300 mcg by mouth every morning. [facility] lisinopriL 30 mg tablet 2019-10 23:22: 41 08-29 00:00 :00 No 25mg Take 25 mg by mouth daily. [facility] ondansetron (ZOFRAN (PF)) injection 4 mg 2019-10 23:15: 07 08-31 23:14 :07 No 4mg 4 mg, Slow IV Push, Q6HPRN, Starting Fri08/29/20 at 1715, Until Ale 08/31/20 at 1714, Routine, Nausea and Vomiting (N/V) [facility] morpHINE injection 2 mg 2019-10 22:49: 42 08-30 22:48 :42 No 2mg 2 mg, Slow IV Push, Q4HPRN, Starting Fri08/29/20 at 1649, Until Fri08/30/20 at 1648, Routine, Pain (scale 7-10) [facility] ondansetron (ZOFRAN (PF)) injection 4 mg 2019-10 18:03: 34 08-29 22:50 :21 No 4mg 4 mg, Slow IV Push, Q6HPRN, Starting Fri08/29/20 at 1203, Until Fri08/29/20 at 1650, Routine, Nausea and Vomiting (N/V) [facility] ibuprofen (IBU) tablet 600 mg 2019-10 18:00: 00 Yes 600mg 600 mg, Oral, Q6H, First dose on Fri08/29/20 at 1200, Until Discontinu ed, Routine [facility] acetaminoph en (TYLENOL) tablet 500 mg 2019-10 18:00: 00 Yes 500mg 500 mg, Oral, Q6H, First dose on Fri08/29/20 at 1200, Until Discontinu ed, Routine [facility] lactated ringers IV infusion 1,000 mL 2019-10 17:00: 00 Yes 1000mL at 75 mL/hr, 1,000 mL, IV Infusion, CONTINUOUS , Starting Fri08/29/20 at 1100, Until Discontinu ed, Routine, PACU [facility] FENTanyl PF (SUBLIMAZE (PF)) injection 25 mcg 2019-10 16:57: 53 08-29 17:58 :11 No 25ug 25 mcg, Slow IV Push, Q5MIN PRN, 4 doses, Starting Fri08/29/20 at 1057, Until Fri08/29/20 at 1158, Routine, Pain (scale 4-6), PACU [facility] ondansetron (ZOFRAN (PF)) injection 4 mg 2019-10 16:57: 53 08-29 17:13 :00 No 4mg 4 mg, Slow IV Push, PRN, 1 dose, Starting Fri08/29/20 at 1057, Until Fri08/29/20 at 1113, Routine, Nausea and Vomiting (N/V), PACU [facility] traMADoL (ULTRAM) tablet 100 mg 2019-10 16:11: 10 08-29 22:51 :09 No 100mg 100 mg, Oral, Q6HPRN, Starting Fri08/29/20 at 1011, Until Fri08/29/20 at 1651, Routine, Pain (scale 7-10) [facility] traMADoL (ULTRAM) tablet 50 mg 2019-10 16:10: 52 Yes 50mg 50 mg, Oral, Q6HPRN, Starting Fri08/29/20 at 1010, Until Discontinu ed, Routine, Pain (scale 4-6) [facility] acetaminoph en ADULT (OFIRMEV) injection 1,000 mg 2019-10 00:15: 00 08-29 16:11 :33 No 1000mg 1,000 mg, IV Infusion, Administer over 15 Minutes, Q6H ABX, 4 doses, First dose on Fri08/28/20 at 1815, Last dose on Fri08/29/20 at 1215, Routine
Indicatio n: Non-periop erative Patient
Approved by: Per Policy (NPO Status) [facility] metroNIDAZO LE in NaCl (iso-os) (FLAGYL I.V.) RTU IV infusion 500 mg 2019-10 00:15: 00 08-29 16:11 :42 No 500mg 500 mg, IV Infusion, Q8H ABX, First dose on Fri08/28/20 at 1815, Until Discontinu ed, 100 mL
Reas on for Anti-Infec tive: Empiric Therapy for Suspected Infection< br>Empiric Therapy Site: Abdominal< br>Duratio n of therapy: 7 days [facility] levoFLOXaci n in D5W (LEVAQUIN) 750 mg/150 mL Piggyback 750 mg 2019-10 00:15: 00 08-29 16:11 :42 No 750mg 750 mg, IV Piggyback, Administer over 90 Minutes, Q24H ABX, First dose on Fri08/28/20 at 1815, Until Discontinu ed, FAWN
Re ason for Anti-Infec tive: Empiric Therapy for Suspected Infection< br>Empiric Therapy Site: Abdominal< br>Duratio n of therapy: 72 hours [facility] levothyroxi ne 125 mcg tablet 2019-10 00:00: 00 09-29 05:59 :00 No [id number] 312.5ug Take 2.5 tablets by mouth every morning for 30 days. [facility] lisinopriL 30 mg tablet 2019-10 00:00: 00 09-29 05:59 :00 No [id number] 30mg Take 1 tablet by mouth daily for 30 days. [facility] pantoprazol e (PROTONIX) 40 mg EC tablet 2019-10 00:00: 00 09-29 05:59 :00 No [id number] 40mg Take 1 tablet by mouth daily for 30 days. [facility] ibuprofen 800 mg tablet 2019-10 00:00: 00 09-04 05:59 :00 No [id number] 800mg Take 1 tablet by mouth every 8 (eight) hours as needed for Pain (scale 4-6) for up to 5 days. [facility] sulfur hexafluorid e microsphr (LUMASON) injection 5 mL 2019-10 21:30: 00 08-28 16:58 :00 No 5mL 5 mL, Intravenou s, ONCE, 1 dose, Fri08/28/20 at 1530, Routine
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 levothyroxi ne (SYNTHROID) tablet 200 mcg 2019-10 12:00: 00 Yes 200ug 200 mcg, Oral, QAM-0600, First dose (after last modificati on) on Fri08/28/20 at 0600, Until Discontinu ed, Routine [facility] enoxaparin (LOVENOX) injection 40 mg 2019-10 23:00: 00 Yes 40mg 40 mg, Subcutaneo us, DAILY, First dose on Fri08/27/20 at 1700, Until Discontinu ed, Routine [facility] ketorolac (TORADOL) injection 30 mg 2019-10 15:45: 00 08-27 14:53 :00 No 30mg 30 mg, Slow IV Push, ONCE, 1 dose, [place] 08/27/20 at 0945, Routine
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 pantoprazol e (PROTONIX) EC tablet 40 mg 2019-10 15:00: 00 Yes 40mg 40 mg, Oral, DAILY, First dose on 08/27/20 at 0900, Until Discontinu ed, Routine [facility] aspirin chewable tablet 81 mg 2019-10 15:00: 00 Yes 81mg 81 mg, Oral, DAILY, First dose on 08/27/20 at 0900, Until Discontinu ed, Routine [facility] levothyroxi ne (SYNTHROID) tablet 300 mcg 2019-10 12:00: 00 08-27 14:38 :59 No 300ug 300 mcg, Oral, QAM-0600, First dose on 08/27/20 at 0600, Until Discontinu ed, Routine [facility] nicotine (NICODERM) 21 mg/24 hr patch 1 Patch 2019-10 08:30: 00 Yes 1{patch } 1 Patch, Topical, Administer over 24 Hours, Q24H, First dose on 08/27/20 at 0230, Until Discontinu ed, Routine [facility] acetaminoph en (TYLENOL) tablet 975 mg 2019-10 08:15: 00 08-27 07:56 :00 No 975mg 975 mg, Oral, ONCE, 1 dose, 08/27/20 at 0215, FAWN [facility] iohexol (OMNIPAQUE 350 BULK-100 mL) injection 120 mL 2019-10 07:45: 00 08-27 07:34 :00 No 120mL 120 mL, Intravenou s, ONCE, 1 dose, 08/27/20 at 0145, Routine [facility] traMADoL (ULTRAM) tablet 50 mg 2019-10 07:16: 43 08-29 07:15 :43 No 50mg 50 mg, Oral, Q8HPRN, Starting Fri08/27/20 at 0116, Until Fri08/29/20 at 0115, Routine, Pain (scale 4-6) [facility] acetaminoph en (TYLENOL) tablet 650 mg 2019-10 07:16: 41 08-28 23:11 :03 No 650mg 650 mg, Oral, Q6HPRN, Starting Fri08/27/20 at 0116, Until Fri08/28/20 at 1711, Routine, Pain (scale 1-3) [facility] morpHINE injection 2 mg 2019-10 07:14: 54 08-28 20:09 :18 No 2mg 2 mg, Slow IV Push, Q4HPRN, Starting 08/27/20 at 0114, Until Fri08/28/20 at 1409, Routine, Pain (scale 7-10) [facility] nitroglycer in (NITROSTAT) sublingual tablet 0.4 mg 2019-10 07:03: 30 Yes .4mg 0.4 mg, Sublingual , Q5MIN PRN, Starting [place] 08/27/20 at 0103, Until Discontinu ed, Routine, Chest pain [facility] alum-mag hydroxide-s imeth (MAALOX PLUS / MAG-AL PLUS) 200-200-20 mg/5 mL suspension 30 mL 2019-10 07:02: 48 Yes 30mL 30 mL, Oral, Q6HPRN, Starting [place] 08/27/20 at 0102, Until Discontinu ed, Routine, Indigestio n [facility] aspirin tablet 325 mg 2019-10 07:00: 00 08-27 06:16 :00 No 325mg 325 mg, Oral, ONCE, 1 dose, [place] 08/27/20 at 0100, STAT [facility] nitroglycer in (NITROSTAT) sublingual tablet 0.4 mg 2019-10 07:00: 00 08-27 06:16 :00 No .4mg 0.4 mg, Sublingual , ONCE, 1 dose, [place] 08/27/20 at 0100, FAWN [facility] aspirin chewable tablet 324 mg 07-10 14:00: 00 Yes 324mg 324 mg, Oral, DAILY, First dose on Fri07/10/20 at 0900, Until Discontinu ed, Routine [facility] iohexol (OMNIPAQUE 350 BULK-100 mL) injection 120 mL 07-10 05:15: 00 07-10 05:08 :00 No 120mL 120 mL, Intravenou s, ONCE, 1 dose, [facility] 07/10/20 at 0015, Routine [facility] codeine-gua ifenesin (ROBITUSSIN AC) 10-100 mg/5 mL solution 10 mL 07-10 04:30: 00 07-10 03:23 :00 No 10mL 10 mL, Oral, ONCE, 1 dose, [place] 07/09/20 at 2330, FAWN [facility] LORazepam (ATIVAN) injection 1 mg 07-10 03:45: 00 07-10 03:14 :00 No 1mg 1 mg, Slow IV Push, ONCE, 1 dose, 07/09/20 at 2245, STAT [facility] morpHINE injection 4 mg 07-10 03:30: 00 07-10 03:16 :00 No 4mg 4 mg, Slow IV Push, ONCE, 1 dose, 07/09/20 at 2230, STAT [facility] pantoprazol e (PROTONIX) 40 mg in NaCl 0.9% (NS) 100 mL MINI-BAG 07-10 02:30: 00 07-10 01:48 :00 No 40mg 40 mg, IV Piggyback, ONCE, 1 dose, 07/09/20 at 2130, 100 mL [facility] ondansetron (ZOFRAN (PF)) injection 4 mg 07-10 02:00: 00 07-10 01:03 :00 No 4mg 4 mg, Slow IV Push, ONCE, 1 dose, 07/09/20 at 2100, FAWN [facility] morpHINE injection 4 mg 07-10 02:00: 00 07-10 01:03 :00 No 4mg 4 mg, Slow IV Push, ONCE, 1 dose, 07/09/20 at 2100, STAT [facility] nitroglycer in (NITROSTAT) sublingual tablet 0.4 mg 07-10 02:00: 00 07-10 01:02 :00 No .4mg 0.4 mg, Sublingual , ONCE, 1 dose, [facility]09[facility]20 [facility] 2100[facility] mg EC tablet 07-10 00:00: 00 08-29 00:00 :00 No [id number] 40mg Take 1 tablet by mouth daily. [facility] dicyclomine 20 mg tablet 07-10 00:00: 08-29 00:00 :00 No [id number] 20mg Take 1 tablet by mouth every 6 (six) hours as needed for Abdominal pain. [facility] benzonatate 200 mg capsule 921 00:00: 00 08-29 00:00 :00 No [id number] 200mg Take 1 capsule by mouth 3 (three) times daily as needed for Cough. [facility] ibuprofen 800 mg tablet 2018-10 029 00:00: 00 08-29 00:00 :00 No [id number] 800mg Take 1 tablet by mouth every 8 (eight) hours as needed for Pain (scale 4-6). [facility] cyclobenzap rine 5 mg tablet 03-30 00:00: 00 08-29 00:00 :00 No [id number] 5mg Take 1 tablet by mouth 3 (three) times daily as needed for Muscle Spasms. [facility] LORazepam (ATIVAN) 0.5 mg tablet 06-14 00:00: 00 08-29 00:00 :00 No .5mg Take 1 tablet by mouth 2 (two) times daily as needed for Anxiety. [facility] levothyroxi ne 125 mcg tablet 05-11 10:32: 30 Yes 125ug Take 125 mcg by mouth every morning. [facility] Vital Signs Vital Name Observation Time Observation Value Comments [facility]ather Systolic blood pressure 2024-11-14 02:39:00 156 mm[Hg] [facility] Diastolic blood pressure 2024-11-14 02:39:00 88 mm[Hg] [facility] Heart rate 2024-11-14 02:39:00 88 /min [facility] Body temperature 2024-11-14 02:39:00 37.11 Nano [facility] Respiratory rate 2024-11-14 02:39:00 16 /min [facility] Body height 2024-11-14 02:39:00 172.7 cm [facility] Body weight 2024-11-14 02:39:00 111.131 kg [facility] BMI 2024-11-14 02:39:00 37.25 kg/m2 [facility] Oxygen saturation in Arterial blood by Pulse oximetry 2024-11-14 02:39:00 98 /min [facility] Systolic blood pressure 2024-02-04 18:48:00 142 mm[Hg] [facility] Diastolic blood pressure 2024-02-04 18:48:00 97 mm[Hg] [facility] Heart rate 2024-02-04 18:48:00 84 /min [facility] Respiratory rate 2024-02-04 18:48:00 16 /min [facility] Oxygen saturation in Arterial blood by Pulse oximetry 2024-02-04 18:48:00 97 /min [facility] Body temperature 2024-02-04 15:46:00 36.67 Nano [facility] Body height 2024-02-04 15:46:00 172.7 cm [facility] Body weight 2024-02-04 15:46:00 111.131 kg [facility] BMI 2024-02-04 15:46:00 37.25 kg/m2 [facility] Heart rate 2023-12-28 09:23:00 84 /min [facility] Respiratory rate 2023-12-28 09:23:00 16 /min [facility] Oxygen saturation in Arterial blood by Pulse oximetry 2023-12-28 09:23:00 96 /min [facility] Systolic blood pressure 2023-12-28 09:00:00 131 mm[Hg] [facility] Diastolic blood pressure 2023-12-28 09:00:00 81 mm[Hg] [facility] Body temperature 2023-12-28 08:13:00 37 Nano [facility] Body height 2023-12-28 08:13:00 172.7 cm [facility] Body weight 2023-12-28 08:13:00 110.632 kg [facility] BMI 2023-12-28 08:13:00 37.08 kg/m2 [facility] Systolic blood pressure 2023-11-06 08:00:00 117 mm[Hg] [facility] Diastolic blood pressure 2023-11-06 08:00:00 75 mm[Hg] [facility] Heart rate 2023-11-06 08:00:00 80 /min [facility] Body temperature 2023-11-06 08:00:00 37 Nano [facility] Respiratory rate 2023-11-06 08:00:00 18 /min [facility] Oxygen saturation in Arterial blood by Pulse oximetry 2023-11-06 08:00:00 97 /min [facility] Body height 2023-11-06 05:50:00 172.7 cm [facility] Body weight 2023-11-06 05:50:00 113.309 kg [facility] BMI 2023-11-06 05:50:00 37.98 kg/m2 [facility] Systolic blood pressure 2023-11-01 10:00:00 142 mm[Hg] [facility] Diastolic blood pressure 2023-11-01 10:00:00 81 mm[Hg] [facility] Heart rate 2023-11-01 10:00:00 79 /min [facility] Body temperature 2023-11-01 10:00:00 37.17 Nano [facility] Respiratory rate 2023-11-01 10:00:00 16 /min [facility] Oxygen saturation in Arterial blood by Pulse oximetry 2023-11-01 10:00:00 94 /min [facility] Body height 2023-11-01 05:37:00 172.7 cm [facility] Body weight 2023-11-01 05:37:00 111.131 kg [facility] BMI 2023-11-01 05:37:00 37.25 kg/m2 [facility] Systolic blood pressure 2023-10-23 08:00:00 140 mm[Hg] [facility] Diastolic blood pressure 2023-10-23 08:00:00 88 mm[Hg] [facility] Heart rate 2023-10-23 08:00:00 89 /min [facility] Oxygen saturation in Arterial blood by Pulse oximetry 2023-10-23 08:00:00 94 /min [facility] Respiratory rate 2023-10-23 05:53:00 16 /min [facility] Body temperature 2023-10-23 05:45:00 36.72 Nano [facility] Body height 2023-10-23 05:45:00 172.7 cm [facility] Body weight 2023-10-23 05:45:00 113.399 kg [facility] BMI 2023-10-23 05:45:00 38.01 kg/m2 [facility] Systolic blood pressure 2023-09-26 08:00:00 159 mm[Hg] [facility] Diastolic blood pressure 2023-09-26 08:00:00 80 mm[Hg] [facility] Heart rate 2023-09-26 08:00:00 75 /min [facility] Respiratory rate 2023-09-26 08:00:00 20 /min [facility] Oxygen saturation in Arterial blood by Pulse oximetry 2023-09-26 08:00:00 94 /min [facility] Body temperature 2023-09-26 05:02:00 36.72 Nano [facility] Systolic blood pressure 2023-08-24 08:14:00 140 mm[Hg] [facility] Diastolic blood pressure 2023-08-24 08:14:00 73 mm[Hg] [facility] Heart rate 2023-08-24 08:14:00 75 /min [facility] Body temperature 2023-08-24 08:14:00 36.67 Nano [facility] Respiratory rate 2023-08-24 08:14:00 18 /min [facility] Oxygen saturation in Arterial blood by Pulse oximetry 2023-08-24 08:14:00 96 /min [facility] Body height 2023-08-24 03:41:00 172.7 cm [facility] Body weight 2023-08-24 03:41:00 113.399 kg [facility] BMI 2023-08-24 03:41:00 38.01 kg/m2 [facility] Systolic blood pressure 2023-07-07 10:53:00 140 mm[Hg] [facility] Diastolic blood pressure 2023-07-07 10:53:00 83 mm[Hg] [facility] Heart rate 2023-07-07 10:53:00 75 /min [facility] Respiratory rate 2023-07-07 10:53:00 16 /min [facility] Oxygen saturation in Arterial blood by Pulse oximetry 2023-07-07 10:53:00 97 /min [facility] Body temperature 2023-07-07 08:57:00 36.44 Nano [facility] Body height 2023-07-07 08:57:00 172.7 cm [facility] Body weight 2023-07-07 08:57:00 113.399 kg [facility] BMI 2023-07-07 08:57:00 38.01 kg/m2 [facility] Systolic blood pressure 2023-05-26 03:30:00 140 mm[Hg] [facility] Diastolic blood pressure 2023-05-26 03:30:00 78 mm[Hg] [facility] Heart rate 2023-05-26 03:30:00 80 /min [facility] Respiratory rate 2023-05-26 03:30:00 23 /min [facility] Oxygen saturation in Arterial blood by Pulse oximetry 2023-05-26 03:30:00 94 /min [facility] Body temperature 2023-05-26 03:00:00 36.78 Nano [facility] Body weight 2023-05-25 22:19:00 121.564 kg [facility] BMI 2023-05-25 22:19:00 40.75 kg/m2 [facility] Systolic blood pressure 2023-02-21 01:51:00 123 mm[Hg] [facility] Diastolic blood pressure 2023-02-21 01:51:00 74 mm[Hg] [facility] Heart rate 2023-02-20 23:03:00 95 /min [facility] Body temperature 2023-02-20 23:03:00 38.28 Nano [facility] Respiratory rate 2023-02-20 23:03:00 18 /min [facility] Body height 2023-02-20 23:03:00 172.7 cm [facility] Body weight 2023-02-20 23:03:00 121.564 kg [facility] BMI 2023-02-20 23:03:00 40.75 kg/m2 [facility] Oxygen saturation in Arterial blood by Pulse oximetry 2023-02-20 23:03:00 97 /min [facility] Systolic blood pressure 2022-12-29 10:00:00 142 mm[Hg] [facility] Diastolic blood pressure 2022-12-29 10:00:00 78 mm[Hg] [facility] Heart rate 2022-12-29 10:00:00 71 /min [facility] Oxygen saturation in Arterial blood by Pulse oximetry 2022-12-29 09:57:00 96 /min [facility] Body temperature 2022-12-29 06:35:00 36.89 Nano [facility] Respiratory rate 2022-12-29 06:35:00 20 /min [facility] Body height 2022-12-29 06:35:00 172.7 cm [facility] Body weight 2022-12-29 06:35:00 121.745 kg [facility] BMI 2022-12-29 06:35:00 40.81 kg/m2 [facility] Systolic blood pressure 2022-11-21 08:14:00 162 mm[Hg] [facility] Diastolic blood pressure 2022-11-21 08:14:00 101 mm[Hg] [facility] Heart rate 2022-11-21 08:09:00 92 /min [facility] Body temperature 2022-11-21 08:09:00 37.11 Nano [facility] Respiratory rate 2022-11-21 08:09:00 16 /min [facility] Body height 2022-11-21 08:09:00 172.7 cm [facility] Body weight 2022-11-21 08:09:00 115.667 kg [facility] BMI 2022-11-21 08:09:00 38.77 kg/m2 [facility] Oxygen saturation in Arterial blood by Pulse oximetry 2022-11-21 08:09:00 97 /min [facility] Systolic blood pressure 2022-10-29 07:34:00 167 mm[Hg] [facility] Diastolic blood pressure 2022-10-29 07:34:00 97 mm[Hg] [facility] Heart rate 2022-10-29 07:34:00 93 /min [facility] Body temperature 2022-10-29 07:34:00 37.39 Nano [facility] Respiratory rate 2022-10-29 07:34:00 20 /min [facility] Body height 2022-10-29 07:34:00 172.7 cm [facility] Body weight 2022-10-29 07:34:00 113.399 kg [facility] BMI 2022-10-29 07:34:00 38.01 kg/m2 [facility] Oxygen saturation in Arterial blood by Pulse oximetry 2022-10-29 07:34:00 97 /min [facility] Systolic blood pressure 2022-06-02 05:00:00 165 mm[Hg] [facility] Diastolic blood pressure 2022-06-02 05:00:00 119 mm[Hg] [facility] Heart rate 2022-06-02 05:00:00 74 /min [facility] Respiratory rate 2022-06-02 05:00:00 23 /min [facility] Oxygen saturation in Arterial blood by Pulse oximetry 2022-06-02 05:00:00 95 /min [facility] Body temperature 2022-06-02 04:41:00 36.67 Nano [facility] Systolic blood pressure 2022-05-28 18:36:21 147 mm[Hg] [facility] Diastolic blood pressure 2022-05-28 18:36:21 97 mm[Hg] [facility] Heart rate 2022-05-28 18:36:21 62 /min [facility] Respiratory rate 2022-05-28 18:36:21 18 /min [facility] Oxygen saturation in Arterial blood by Pulse oximetry 2022-05-28 18:36:21 96 /min [facility] Body temperature 2022-05-28 15:06:00 37.22 Nano [facility] Body height 2022-05-28 15:06:00 172.7 cm [facility] Body weight 2022-05-28 15:06:00 124.739 kg [facility] BMI 2022-05-28 15:06:00 41.81 kg/m2 [facility] Systolic blood pressure 2022-05-06 06:42:00 137 mm[Hg] [facility] Diastolic blood pressure 2022-05-06 06:42:00 90 mm[Hg] [facility] Heart rate 2022-05-06 06:42:00 81 /min [facility] Respiratory rate 2022-05-06 06:42:00 16 /min [facility] Oxygen saturation in Arterial blood by Pulse oximetry 2022-05-06 06:42:00 94 /min [facility] Body temperature 2022-05-06 03:30:00 36.78 Nano [facility] Body height 2022-05-06 03:30:00 172.7 cm [facility] Body weight 2022-05-06 03:30:00 117.935 kg [facility] BMI 2022-05-06 03:30:00 39.53 kg/m2 [facility] Systolic blood pressure 2022-05-01 13:30:00 147 mm[Hg] [facility] Diastolic blood pressure 2022-05-01 13:30:00 91 mm[Hg] [facility] Heart rate 2022-05-01 13:30:00 73 /min [facility] Respiratory rate 2022-05-01 13:30:00 17 /min [facility] Oxygen saturation in Arterial blood by Pulse oximetry 2022-05-01 13:30:00 95 /min [facility] Body temperature 2022-05-01 12:28:00 36.78 Nano [facility] Body weight 2022-05-01 12:28:00 121.564 kg [facility] BMI 2022-05-01 12:28:00 40.75 kg/m2 [facility] Systolic blood pressure 2022-02-08 07:00:00 133 mm[Hg] [facility] Diastolic blood pressure 2022-02-08 07:00:00 94 mm[Hg] [facility] Heart rate 2022-02-08 07:00:00 77 /min [facility] Respiratory rate 2022-02-08 07:00:00 21 /min [facility] Oxygen saturation in Arterial blood by Pulse oximetry 2022-02-08 07:00:00 95 /min [facility] Body temperature 2022-02-08 06:04:00 36.5 Nano [facility] Body height 2022-02-08 06:04:00 172.7 cm [facility] Body weight 2022-02-08 06:04:00 113.399 kg [facility] BMI 2022-02-08 06:04:00 38.01 kg/m2 [facility] Systolic blood pressure 2021-10-14 22:36:00 152 mm[Hg] [facility] Diastolic blood pressure 2021-10-14 22:36:00 87 mm[Hg] [facility] Heart rate 2021-10-14 22:36:00 95 /min [facility] Body temperature 2021-10-14 22:36:00 36.94 Nano [facility] Respiratory rate 2021-10-14 22:36:00 18 /min [facility] Body weight 2021-10-14 22:36:00 122.29 kg [facility] BMI 2021-10-14 22:36:00 40.99 kg/m2 [facility] Oxygen saturation in Arterial blood by Pulse oximetry 2021-10-14 22:36:00 97 /min [facility] Systolic blood pressure 2021-05-15 17:15:00 148 mm[Hg] [facility] Diastolic blood pressure 2021-05-15 17:15:00 84 mm[Hg] [facility] Heart rate 2021-05-15 17:15:00 99 /min [facility] Body temperature 2021-05-15 17:15:00 36.5 Nano [facility] Respiratory rate 2021-05-15 17:15:00 20 /min [facility] Body weight 2021-05-15 17:15:00 117.073 kg [facility] BMI 2021-05-15 17:15:00 39.24 kg/m2 [facility] Oxygen saturation in Arterial blood by Pulse oximetry 2021-05-15 17:15:00 97 /min [facility] Systolic blood pressure 2021-05-08 18:10:00 156 mm[Hg] [facility] Diastolic blood pressure 2021-05-08 18:10:00 95 mm[Hg] [facility] Heart rate 2021-05-08 18:10:00 99 /min [facility] Body temperature 2021-05-08 18:10:00 36.06 Nano [facility] Respiratory rate 2021-05-08 18:10:00 18 /min [facility] Body weight 2021-05-08 18:10:00 116.756 kg [facility] BMI 2021-05-08 18:10:00 39.14 kg/m2 [facility] Oxygen saturation in Arterial blood by Pulse oximetry 2021-05-08 18:10:00 96 /min [facility] Systolic blood pressure 2021-05-06 09:26:00 145 mm[Hg] [facility] Diastolic blood pressure 2021-05-06 09:26:00 93 mm[Hg] [facility] Heart rate 2021-05-06 09:26:00 79 /min [facility] Respiratory rate 2021-05-06 09:26:00 20 /min [facility] Oxygen saturation in Arterial blood by Pulse oximetry 2021-05-06 09:26:00 97 /min [facility] Body temperature 2021-05-06 07:56:00 37.11 [facility] Body height 2021-05-06 07:56:00 172.7 cm [facility] Body weight 2021-05-06 07:56:00 118.434 kg [facility] BMI 2021-05-06 07:56:00 39.70 kg/m2 [facility] Systolic blood pressure 2021-03-15 06:19:00 127 mm[Hg] [facility] Diastolic blood pressure 2021-03-15 06:19:00 79 mm[Hg] [facility] Heart rate 2021-03-15 06:19:00 78 /min [facility] Respiratory rate 2021-03-15 06:19:00 23 /min [facility] Oxygen saturation in Arterial blood by Pulse oximetry 2021-03-15 06:19:00 96 /min [facility] Body temperature 2021-03-15 03:05:45 37 [facility] Body weight 2021-03-15 02:46:00 114.76 kg [facility] BMI 2021-03-15 02:46:00 38.47 kg/m2 [facility] Systolic blood pressure 2021-03-15 06:19:00 127 mm[Hg] [facility] Diastolic blood pressure 2021-03-15 06:19:00 79 mm[Hg] [facility] Heart rate 2021-03-15 06:19:00 78 /min [facility] Respiratory rate 2021-03-15 06:19:00 23 /min [facility] Oxygen saturation in Arterial blood by Pulse oximetry 2021-03-15 06:19:00 96 /min [facility] Body temperature 2021-03-15 03:05:45 37 [facility] Body weight 2021-03-15 02:46:00 114.76 kg [facility] BMI 2021-03-15 02:46:00 38.47 kg/m2 [facility] Systolic blood pressure 2020-09-09 00:10:00 124 mm[Hg] [facility] Diastolic blood pressure 2020-09-09 00:10:00 77 mm[Hg] [facility] Heart rate 2020-09-09 00:10:00 83 /min [facility] Respiratory rate 2020-09-09 00:10:00 16 /min [facility] Oxygen saturation in Arterial blood by Pulse oximetry 2020-09-09 00:10:00 97 /min [facility] Body temperature 2020-09-08 23:14:00 37.39 Nano [facility] Body weight 2020-09-08 22:49:00 107.956 kg [facility] BMI 2020-09-08 22:49:00 36.19 kg/m2 [facility] Systolic blood pressure 2020-09-09 00:10:00 124 mm[Hg] [facility] Diastolic blood pressure 2020-09-09 00:10:00 77 mm[Hg] [facility] Heart rate 2020-09-09 00:10:00 83 /min [facility] Respiratory rate 2020-09-09 00:10:00 16 /min [facility] Oxygen saturation in Arterial blood by Pulse oximetry 2020-09-09 00:10:00 97 /min [facility] Body temperature 2020-09-08 23:14:00 37.39 Nano [facility] Body weight 2020-09-08 22:49:00 107.956 kg [facility] BMI 2020-09-08 22:49:00 36.19 kg/m2 [facility] Systolic blood pressure 2020-09-06 19:30:00 115 mm[Hg] [facility] Diastolic blood pressure 2020-09-06 19:30:00 65 mm[Hg] [facility] Heart rate 2020-09-06 19:30:00 67 /min [facility] Body temperature 2020-09-06 19:30:00 36.83 Nano [facility] Respiratory rate 2020-09-06 19:30:00 19 /min [facility] Oxygen saturation in Arterial blood by Pulse oximetry 2020-09-06 19:30:00 99 /min [facility] Body weight 2020-09-06 15:41:00 107.956 kg [facility] BMI 2020-09-06 15:41:00 36.19 kg/m2 [facility] Systolic blood pressure 2020-09-06 19:30:00 115 mm[Hg] [facility] Diastolic blood pressure 2020-09-06 19:30:00 65 mm[Hg] [facility] Heart rate 2020-09-06 19:30:00 67 /min [facility] Body temperature 2020-09-06 19:30:00 36.83 Nano [facility] Respiratory rate 2020-09-06 19:30:00 19 /min [facility] Oxygen saturation in Arterial blood by Pulse oximetry 2020-09-06 19:30:00 99 /min [facility] Body weight 2020-09-06 15:41:00 107.956 [facility] BMI 2020-09-06 15:41:00 36.19 kg/m2 [facility] Systolic blood pressure 2020-08-30 13:11:00 136 mm[Hg] [facility] Diastolic blood pressure 2020-08-30 13:11:00 77 mm[Hg] [facility] Heart rate 2020-08-30 13:11:00 74 /min [facility] Body temperature 2020-08-30 13:11:00 36.5 Nano [facility] Respiratory rate 2020-08-30 13:11:00 18 /min [facility] Oxygen saturation in Arterial blood by Pulse oximetry 2020-08-30 13:11:00 96 /min [facility] Body weight 2020-08-30 09:00:00 107.956 kg [facility] BMI 2020-08-30 09:00:00 36.19 kg/m2 [facility] Body height 2020-08-27 07:49:00 172.7 cm [facility] Systolic blood pressure 2020-08-30 13:11:00 136 mm[Hg] [facility] Diastolic blood pressure 2020-08-30 13:11:00 77 mm[Hg] [facility] Heart rate 2020-08-30 13:11:00 74 /min [facility] Body temperature 2020-08-30 13:11:00 36.5 Nano [facility] Respiratory rate 2020-08-30 13:11:00 18 /min [facility] Oxygen saturation in Arterial blood by Pulse oximetry 2020-08-30 13:11:00 96 /min [facility] Body weight 2020-08-30 09:00:00 107.956 kg [facility] BMI 2020-08-30 09:00:00 36.19 kg/m2 [facility] Body height 2020-08-27 07:49:00 172.7 cm [facility] Systolic blood pressure 2020-07-10 05:30:00 123 mm[Hg] [facility] Diastolic blood pressure 2020-07-10 05:30:00 77 mm[Hg] [facility] Heart rate 2020-07-10 05:30:00 75 /min [facility] Respiratory rate 2020-07-10 05:30:00 19 /min [facility] Oxygen saturation in Arterial blood by Pulse oximetry 2020-07-10 05:30:00 97 /min [facility] Body temperature 2020-07-10 00:48:00 37.39 Nano [facility] Body height 2020-07-10 00:48:00 172.7 cm [facility] Body weight 2020-07-10 00:43:00 99.791 kg [facility] BMI 2020-07-10 00:43:00 33.45 kg/m2 [facility] Systolic blood pressure 2020-07-10 05:30:00 123 mm[Hg] [facility] Diastolic blood pressure 2020-07-10 05:30:00 77 mm[Hg] [facility] Heart rate 2020-07-10 05:30:00 75 /min [facility] Respiratory rate 2020-07-10 05:30:00 19 /min [facility] Oxygen saturation in Arterial blood by Pulse oximetry 2020-07-10 05:30:00 97 /min [facility] Body temperature 2020-07-10 00:48:00 37.39 Nano [facility] Body height 2020-07-10 00:48:00 172.7 cm [facility] Body weight 2020-07-10 00:43:00 99.791 kg [facility] BMI 2020-07-10 00:43:00 33.45 kg/m2 [facility] Procedures Procedure Date / Time Performed Performing Clinician Source URINALYSIS 2024-02-04 18:16:00 Babs [facility]ustamante [facility] CT ABDOMEN PELVIS W CONTRAST 2024-02-04 16:52:00 [facility] LIPASE 2024-02-04 16:00:00 [facility] COMP. METABOLIC PANEL ([id number]) 2024-02-04 16:00:00 [facility] CBC WITH DIFF 2024-02-04 16:00:00 Dillon [facility] CONSENT/REFUSAL FOR DIAGNOSIS AND TREATMENT 2023-12-28 08:06:27 Doctor Unassigned, [place] [facility] EKG-12 LEAD 2023-11-06 08:26:13 SheilaNidia dyer [facility] LIPASE 2023-11-06 06:15:00 SheilaNidia dyer [facility] MAGNESIUM 2023-11-06 06:15:00 SheilaNidia dyer [facility] COMP. METABOLIC PANEL ([id number]) 2023-11-06 06:15:00 Nidia Solano [facility] CBC WITH DIFF 2023-11-06 06:15:00 SheilaNidia dyer [facility] URINALYSIS 2023-11-06 06:15:00 SheilaNidia dyer [facility] CONSENT/REFUSAL FOR DIAGNOSIS AND TREATMENT 2023-11-06 05:40:44 Doctor Unassigned, [place] [facility] CT ABDOMEN PELVIS W CONTRAST 2023-11-01 08:32:40 Jose Francisco Walters [facility] LIPASE 2023-11-01 05:45:00 Jose Francisco Walters [facility] COMP. METABOLIC PANEL ([id number]) 2023-11-01 05:45:00 Jose Francisco Walters [facility] CBC WITH DIFF 2023-11-01 05:45:00 Jose Francisco Walters [facility] URINALYSIS 2023-11-01 05:45:00 Jose Francisco Walters [facility] POCT GLUCOSE (AUTOMATED) 2023-11-01 05:41:00 Lena Walters [facility] CONSENT/REFUSAL FOR DIAGNOSIS AND TREATMENT 2023-11-01 05:29:45 Doctor Unassigned, [place] [facility] CT ABDOMEN PELVIS W CONTRAST 2023-10-23 07:06:44 Chapito Contreras [facility] LIPASE 2023-10-23 05:50:00 [facility]OLIC [facility] ([id number]) 2023-10-23 05:50:00 Chapito Contreras [facility] CBC WITH DIFF 2023-10-23 05:50:[address] [facility] URINALYSIS 2023-10-23 05:50:00 Chapito Contreras [facility] CONSENT/REFUSAL FOR DIAGNOSIS AND TREATMENT 2023-10-23 05:34:08 Doctor Unassigned, [place] [facility] URINALYSIS 2023-09-26 06:12:00 Loren Tam [facility] LIPASE 2023-09-26 05:12:00 Jose BarrettAlvarez [facility] HEPATIC FUNCTION PANEL ([id number]) (ALB,T.PRO,BILI T,BU/BC,ALT,AST,ALK PHOS) 2023-09-26 05:12:00 [facility] BASIC METABOLIC PANEL (NA, K, CL, CO2, GLUCOSE, BUN, CREATININE, CA) 2023-09-26 05:12:00 [facility] CBC WITH DIFF 2023-09-26 05:12:00 Loren Tam [facility] NOTICE OF PRIVACY PRACTICES 2023-09-26 04:50:48 Doctor Unassigned, [place] [facility] CONSENT/REFUSAL FOR DIAGNOSIS AND TREATMENT 2023-09-26 04:50:08 Doctor Unassigned, [place] [facility] CT CHEST PULMONARY ANGIOGRAM 2023-08-24 08:02:29 Patrick Vergara [facility] XR CHEST 1 VW 2023-08-24 04:38:16 Patrick Vergara [facility] TROPONIN I 2023-08-24 04:29:00 [facility]. METABOLIC PANEL ([id number]) 2023-08-24 04:29:00 Patrick Vergara [facility] CBC WITH DIFF 2023-08-24 04:29:00 Patrick Vergara [facility] CONSENT/REFUSAL FOR DIAGNOSIS AND TREATMENT 2023-08-24 03:41:11 Doctor Unassigned, [place] [facility] LIPASE 2023-07-07 09:22:00 Chapito Contreras [facility] TROPONIN I 2023-07-07 09:22:00 Chapito Contreras [facility] COMP. METABOLIC PANEL ([id number]) 2023-07-07 09:22:00 Chapito Contreras [facility] CBC WITH DIFF 2023-07-07 09:22:[address] [facility] URINALYSIS 2023-07-07 09:22:00 Chapito Contreras [facility] CONSENT/REFUSAL FOR DIAGNOSIS AND TREATMENT 2023-07-07 08:49:51 Doctor Unassigned, [place] [facility] POCT GLUCOSE (AUTOMATED) 2023-05-26 02:17:00 Nidia Solano [facility] URINALYSIS 2023-05-26 01:24:00 Nidia Solano [facility] POCT GLUCOSE (AUTOMATED) 2023-05-26 01:22:00 Nidia Solano [facility] TROPONIN I 2023-05-26 00:54:00 Nidia Solano [facility] COVID-19 (ID NOW RAPID TESTING) 2023-05-26 00:54:00 Nidai Solano [facility] ASSIGNMENT OF BENEFITS 2023-05-26 00:29:59 Docto r Unassigned, [place] [facility] XR CHEST 1 VW 2023-05-25 22:41:21 Nidia Solano [facility] LIPASE 2023-05-25 22:33:00 [facility]23-05-25 22:33:00 Nidia Solano [facility] TROPONIN I 2023-05-25 22:33:00 Nidia Solano [facility] COMP. METABOLIC PANEL ([id number]) 2023-05-25 22:33:00 iNdia Solano [facility] CBC WITH DIFF 2023-05-25 22:33:00 Nidia Solano [facility] N-TERMINAL PRO-BNP 2023-05-25 22:33:00 Nidia Solano Haily [facility] CONSENT/REFUSAL FOR DIAGNOSIS AND TREATMENT 2023-05-25 22:07:05 Doctor Unassigned, [place] [facility] COVID-19 (ID NOW RAPID TESTING) 2023-02-20 23:30:00 Sofia Escobar [facility] CONSENT/REFUSAL FOR DIAGNOSIS AND TREATMENT 2023-02-20 22:54:00 Doctor Unassigned, [place] [facility] CT ABDOMEN PELVIS W CONTRAST 2022-12-29 08:28:18 Chapito Cnotreras [facility] LIPASE 2022-12-29 07:11:00 Chapito Contreras [facility] COMP. METABOLIC PANEL ([id number]) 2022-12-29 07:11:00 Chapito Contreras [facility] CBC WITH DIFF 2022-12-29 07:11:[address] [facility] URINALYSIS 2022-12-29 07:11:00 Chapito Contreras [facility] CONSENT/REFUSAL FOR DIAGNOSIS AND TREATMENT 2022-12-29 06:24:27 Doctor Unassigned, [place] [facility] CONSENT/REFUSAL FOR DIAGNOSIS AND TREATMENT 2022-11-21 08:05:19 Doctor Unassigned, [place] [facility] RAPID STREP SCREEN FOR GROUP A 2022-10-29 07:36:00 Marie Morales [facility] CONSENT/REFUSAL FOR DIAGNOSIS AND TREATMENT 2022-10-29 07:23:03 Doctor Unassigned, [place] [facility] CONSENT/REFUSAL FOR DIAGNOSIS AND TREATMENT 2022-06-02 04:34:17 Doctor Unassigned, [place] [facility] FREE T4 2022-05-28 16:06:00 Saqib Clarke [facility] THYROID STIMULATING HORMONE 2022-05-28 16:06:00 Singer [facility] COMP. METABOLIC PANEL ([id number]) 2022-05-28 16:06:00 Singer [facility] CBC WITH DIFF 2022-05-28 16:06:00 Saqib [facility] FREE T3 2022-05-28 16:06:00 Saqib Clarke [facility] CONSENT/REFUSAL FOR DIAGNOSIS AND TREATMENT 2022-05-28 14:55:38 Doctor Unassigned, [place] [facility] CT ABDOMEN PELVIS W CONTRAST 2022-05-06 06:06:56 Nidia Solano [facility] LIPASE 2022-05-06 05:17:00 Nidia Solano [facility] MAGNESIUM 2022-05-06 05:17:00 Ndiia Solano [facility] TROPONIN I 2022-05-06 05:17:00 Nidia Solano [facility] COMP. METABOLIC PANEL ([id number]) 2022-05-06 05:17:00 Nidia Solano [facility] CBC WITH DIFF 2022-05-06 05:17:00 Nidia Solano [facility] URINALYSIS 2022-05-06 05:17:00 Nidia Solano [facility] RAPID INFLUENZA A/B 2022-05-06 03:48:00 Nidia Solano [facility] COVID-19 (ID NOW RAPID TESTING) 2022-05-06 03:48:00 Nidia Solano [facility] CONSENT/REFUSAL FOR DIAGNOSIS AND TREATMENT 2022-05-06 03:22:49 Doctor Unassigned, [place] [facility] COMP. METABOLIC PANEL ([id number]) 2022-05-01 12:42:[facility] 2022-05-01 12:42:00 Clarke [facility] CONSENT/REFUSAL FOR DIAGNOSIS AND TREATMENT 2022-05-01 12:23:44 Doctor Unassigned, [place] [facility] URINALYSIS 2022-02-08 06:27:00 Benjamin Ashford [facility] URINE DRUG (IMMUNOASSAY) - COMPREHENSIVE DRUG SCREEN W/O REFLEX 2022-02-08 06:27:00 Benjamin Ashford [facility] LIPASE 2022-02-08 06:15:00 Benjamin Ashford [facility] TROPONIN I 2022-02-08 06:15:00 Benjamin Ashford [facility] COMP. METABOLIC PANEL ([id number]) 2022-02-08 06:15:00 Benjamin Ashford [facility] ETHANOL 2022-02-08 06:15:00 Benjamin Ashford [facility] CBC WITH DIFF 2022-02-08 06:15:00 Benjamin Ashford [facility] PROTHROMBIN TIME / INR 2022-02-08 06:15:00 Jeremy Ashford [facility] ACTIVATED PARTIAL THRMPLAS ELAINE 2022-02-08 06:15:00 Benjamin Ashford [facility] N-TERMINAL PRO-BNP 2022-02-08 06:15:00 Benjamin Ashford [facility] NOTICE OF PRIVACY PRACTICES 2022-02-08 06:01:50 Doctor Unassigned, [place] [facility] CONSENT/REFUSAL FOR DIAGNOSIS AND TREATMENT 2022-02-08 05:59:20 Doctor Unassigned, [place] [facility] CT ABDOMEN PELVIS W CONTRAST 2021-10-15 00:40:39 Marie Morales [facility] LIPASE 2021-10-15 00:26:00 Marie Morales Un [facility] TROPONIN I 2021-10-15 00:26:00 Marie Morales [facility] COMP. METABOLIC PANEL ([id number]) 2021-10-15 00:26:00 Marie Morales [facility] CBC WITH DIFF 2021-10-15 00:26:00 Marie Morales U [facility] NOTICE OF PRIVACY PRACTICES 2021-10-14 22:18:20 Doctor Unassigned, [place] [facility] CONSENT/REFUSAL FOR DIAGNOSIS AND TREATMENT 2021-10-14 22:17:56 Doctor Unassigned, [place] [facility] CT ABDOMEN PELVIS W CONTRAST 2021-03-15 04:54:23 Chapito Contreras [facility] COVID-19 (ID NOW RAPID TESTING) 2021-03-15 03:34:00 Chapito Contreras [facility] URINALYSIS 2021-03-15 03:16:00 Chapito Contreras [facility] COMP. METABOLIC PANEL ([id number]) 2021-03-15 03:11:00 Chapito Contreras [facility] CBC WITH DIFF 2021-03-15 03:11:[address] [facility] CONSENT/REFUSAL FOR DIAGNOSIS AND TREATMENT 2021-03-15 02:38:38 Doctor Unassigned, [place] [facility] LIPASE 2020-09-08 23:14:00 Saqib Clarke [facility] COMP. METABOLIC PANEL ([id number]) 2020-09-08 23:14:00 Saqib Clarke [facility] CBC WITH DIFF 2020-09-08 23:14:00 Saqib [facility] CONSENT/REFUSAL FOR DIAGNOSIS AND TREATMENT 2020-09-08 22:38:49 Doctor Unassigned, [place] [facility] CT ABDOMEN PELVIS W CONTRAST 2020-09-06 17:05:33 Nidia Solano Haily [facility] LACTIC ACID WHOLE BLOOD 2020-09-06 16:31:00 Nidia Solano [facility] LIPASE 2020-09-06 16:11:00 Nidia Solano [facility] MAGNESIUM 2020-09-06 16:11:00 Nidia Solano [facility] COMP. METABOLIC PANEL ([id number]) 2020-09-06 16:11:00 Nidia Solano Haily [facility] CBC WITH DIFF 2020-09-06 16:11:00 Nidia Solano [facility] NOTICE OF PRIVACY PRACTICES 2020-09-06 15:30:39 Doctor Unassigned, [place] [facility] CONSENT/REFUSAL FOR DIAGNOSIS AND TREATMENT 2020-09-06 15:30:28 Doctor Unassigned, [place] [facility] COMP. METABOLIC PANEL (72551) 2020-08-30 08:39:00 [facility] CBC WITH DIFF 2020-08-30 08:39:00 [facility] 2020-08-28 18:11:06 Patrick No [facility] ECHO ROUTINE W/DOPPLER COLOR 2020-08-28 16:34:45 One[facility] HEPATIC FUNCTION PANEL (29155) (ALB,T.PRO,BILI T,BU/BC,ALT,AST,ALK PHOS) 2020-08-28 10:16:00 Favio Chang [facility] BASIC METABOLIC PANEL (NA, K, CL, CO2, GLUCOSE, BUN, CREATININE, CA) 2020-08-28 10:16:00 [facility] TROPONIN I 2020-08-27 18:11:00 Gricelda No [facility] POCT GLUCOSE (AUTOMATED) 2020-08-27 18:02:00 [facility] ([facility]OM[facility]) 2020-08-27 13:49:00 Clau No [facility] TROPONIN I 2020-08-27 11:35:00 [facility] W WO CONTRAST 2020-08-27 07:38:49 [facility] COVID-19 (ID NOW RAPID TESTING) 2020-08-27 06:21:00 Benjamin Ashford [facility] URINALYSIS 2020-08-27 06:20:00 Benjamin Ashford [facility] ADC / LCC - DRUG SCREEN TRIAGE 2020-08-27 06:20:00 Benjamin Ashford [facility] XR CHEST 1 VW 2020-08-27 06:05:42 Benjamin Ashford [facility] LIPASE 2020-08-27 05:58:00 Benjamin Ashford [facility] TROPONIN I 2020-08-27 05:58:00 Benjamin Ashford [facility] THYROID STIMULATING HORMONE 2020-08-27 05:58:00 [facility] HEPATIC FUN[facility]EL (52837) (ALB,T.PRO,BILI T,BU/BC,ALT,AST,ALK PHOS) 2020-08-27 05:58:00 Benjamin Ashford [facility] BASIC METABOLIC PANEL (NA, K, CL, CO2, GLUCOSE, BUN, CREATININE, CA) 2020-08-27 05:58:00 Benjamin Ashford [facility] LIPID PANEL (59107)(TOTAL CHOLESTEROL, TRIGLYCERIDES, HDL) 2020-08-27 05:58:00 Gricelda No [facility] ETHANOL 2020-08-27 05:58:00 Benjamin Ashford [facility] CBC WITH DIFF 2020-08-27 05:58:00 Benjamin Ashford [facility] PROTHROMBIN TIME / INR 2020-08-27 05:58:00 Jeremy Ashford [facility] ACTIVATED PARTIAL THRMPLAS ELAINE 2020-08-27 05:58:00 Benjamin Ashford [facility] EKG-12 LEAD 2020-08-27 05:54:03 Benjamin Ashford [facility] NOTICE OF PRIVACY PRACTICES 2020-08-27 05:44:26 Doctor Unassigned, [place] [facility] CONSENT/REFUSAL FOR DIAGNOSIS AND TREATMENT 2020-08-27 05:43:44 Doctor Unassigned, [place] [facility] CONSENT/REFUSAL FOR DIAGNOSIS AND TREATMENT 2020-08-27 05:43:43 Doctor Unassigned, [place] [facility] CT ABDOMEN PELVIS W CONTRAST 2020-07-10 05:12:21 Chapito Contreras [facility] TROPONIN I 2020-07-10 03:49:00 Chapito Contreras [facility] ADC / LCC - DRUG SCREEN TRIAGE 2020-07-10 03:13:00 Chapito Contreras [facility] XR CHEST 1 VW 2020-07-10 01:05:[address] [facility] LIPASE 2020-07-10 00:55:00 Chapito [facility] TROPONIN I 2020-07-10 00:55:00 Chapito Cont[facility] COMP. METABOLIC PANEL (82532) 2020-07-10 00:55:00 Chapito Contreras [facility] CBC WITH DIFF 2020-07-10 00:55:[address] [facility] PROTHROMBIN TIME / INR 2020-07-10 00:55:00 Yesica Contreras [facility] D-DIMER 2020-07-10 00:55:00 [facility] COVID-19 (ID NOW RAPID TESTING) 2020-07-10 00:55:00 Chapito Contreras [facility] EKG-12 LEAD 2020-07-10 00:52:35 [facility] Encounters Start Date/Time End Date/Time Encounter Type Admission Type Attending Clinicians Care Facility Care Department Encounter ID Source 2024-11-13 20:42:00 2024-11-13 22:15:00 Emergency X ELSA WHITE PAMALA [facility] ERT [id number] [facility] 2024-11-13 20:42:00 2024-11-13 22:15:00 Emergency Drever, Elsa G [facility] 1.2.840.114 350.1.13.10 4.2.7.2.686 [id number] 084 [id number] [facility] 2024-02-09 00:00:00 2024-03-13 18:08:36 Patient Secure Msg Doctor Unassigned, [place] [facility] 1.2840.114 350.1.13.10 4.2.7.2.686 [id number] [facility] 2024-02-04 10:45:00 2024-02-04 14:36:00 Emergency X BABS BUSTMAANTE [facility] ERT [id number] [facility] 2024-02-04 10:45:00 2024-02-04 14:36:00 Emergency Washington Bustamanteine [facility] 1.2840.114 350.1.13.10 4.2.7.2.686 [id number] [id number] [facility] 2023-12-28 03:16:00 2023-12-28 04:32:00 Emergency X JABARISUKHWINDERLEXIE WENDYCHAPITO DELGADILLO [facility] ERT [id number] [facility] 2023-12-28 03:16:00 2023-12-28 04:32:00 Emergency Chapito Contreras Clau [facility] 1.2840.114 350.1.13.10 4.2.7.2.686 [id number] [id number] [facility] 2023-11-05 23:52:00 2023-11-06 02:37:00 Emergency X Nidia SOLANO K [facility] ERT [id number] [facility] 2023-11-05 23:52:00 2023-11-06 02:37:00 Emergency Nidia Solano [facility] 1.2840.114 350.1.13.10 4.2.7.2.686 [id number] [facility] 2023-10-31 23:33:00 2023-11-01 04:19:00 Emergency X JOSE FRANCISCO WALTERS [facility] ERT [id number] [facility] 2023-10-31 23:33:00 2023-11-01 04:19:00 Emergency Jose Francisco Walters [facility] 1.2840.114 350.1.13.10 4.2.7.2.686 [id number] [id number] [facility] 2023-10-22 23:39:00 2023-10-23 02:31:00 Emergency X CHAPITO CONTRERAS [facility] ERT [id number] [facility] 2023-10-22 23:39:00 2023-10-23 02:31:00 Emergency Tim Contreraszaida Clau [facility] 1.840.114 350.1.13.10 4.2.7.2.686 [id number] [facility] 2023-09-25 23:04:00 2023-09-26 02:30:00 Emergency X LOREN TAM HEE-KWANG [facility] ERT [id number] [facility] 2023-09-25 23:04:00 2023-09-26 02:30:00 Emergency Loren Tam [facility] 1.2840.114 350.1.13.10 4.2.7.2.686 [id number] [id number] [facility] 2023-08-25 00:00:00 2023-08-25 00:00:00 Patient Secure Msg Doctor Unassigned, [place] [facility] 1.2840.114 350.1.13.10 4.2.7.2.686 [id number] [facility] 2023-08-23 22:43:00 2023-08-24 02:41:00 Emergency Vergara, Patrick S [facility] 1.2.840.114 350.1.13.10 4.2.7.2.686 [id number] [facility] 2023-08-23 22:43:00 2023-08-24 02:41:00 Emergency X PATRICK VERGARA [facility] ERT [id number] [facility] 2023-07-07 03:51:00 2023-07-07 05:56:00 Emergency X CHAPITO CONTRERAS [facility] ERT [id number] [facility] 2023-07-07 03:51:00 2023-07-07 05:56:00 Emergency Chapito Contreras [facility] 1.2.840.114 350.1.13.10 4.2.7.2.686 [id number] [facility] 2023-05-25 17:20:00 2023-05-25 22:37:00 Emergency X Nidia SOLANO [facility] ERT [id number] [facility] 2023-05-25 17:20:00 2023-05-25 22:37:00 Emergency Nidia Solano Haily [facility] 1.2.840.114 350.1.13.10 4.2.7.2.686 [id number] [id number] [facility] 2023-02-20 18:06:00 2023-02-20 21:03:00 Emergency X SOFIA ESCOBAR SOFIA [facility] ERT [id number] [facility] 2023-02-20 18:06:00 2023-02-20 21:03:00 Emergency Sofia Escobar [facility] 1.2.840.114 350.1.13.10 4.2.7.2.686 [id number] [id number] [facility] 2023-02-20 00:00:00 2023-02-20 00:00:00 Orders Only Doctor Unassigned, [place] [facility] 1.2840.114 350.1.13.10 4.2.7.2.686 [id number] [facility] 2022-12-29 00:24:00 2022-12-29 05:29:00 Emergency X CHAPITO CONTRERAS [facility] ERT [id number] [facility] 2022-12-29 00:24:00 2022-12-29 05:29:00 Emergency Chapito Contreras [facility] 1.2.840.114 350.1.13.10 4.2.7.2.686 [id number] [id number] [facility] 2022-11-21 02:14:00 2022-11-21 03:04:00 Emergency X PATRICK VERGARA [facility] ERT [id number] [facility] 2022-11-21 02:14:00 2022-11-21 03:04:00 Emergency Patrick Vergara [facility] 1.2.840.114 350.1.13.10 4.2.7.2.686 [id number] [id number] [facility] 2022-10-29 01:37:00 2022-10-29 02:25:00 Emergency CECILE CHATTERJEERA [facility] ERT [id number] [facility] 2022-10-29 01:37:00 2022-10-29 02:25:00 Emergency CarmenMarie Dee [facility] 1.2840.114 350.1.13.10 4.2.7.2.686 [id number] [id number] [facility] 2022-06-01 23:34:00 2022-06-02 00:39:00 Emergency Dariela CLARKESAQIB [facility] ERT [id number] [facility] 2022-06-01 23:34:00 2022-06-02 00:39:00 Emergency Saqib Clarke [facility] 1.2840.114 350.1.13.10 4.2.7.2.686 [id number] [id number] [facility] 2022-05-28 11:00:00 2022-05-28 13:39:00 Emergency X SAQIB CLARKE [facility] ERT [id number] [facility] 2022-05-28 11:00:00 2022-05-28 13:39:00 Emergency Saqib Clarke [facility] 1.2840.114 350.1.13.10 4.2.7.2.686 [id number] [id number] [facility] 2022-05-05 22:33:00 2022-05-06 01:49:00 Emergency X Nidia SOLANO [facility] ERT [id number] [facility] 2022-05-05 22:33:00 2022-05-06 01:49:00 Emergency Nidia Solano Haily [facility] 1.2.840.114 350.1.13.10 4.2.7.2.686 [id number] [id number] [facility] 2022-05-01 07:33:00 2022-05-01 09:07:00 Emergency SAQIB MEDRANO [facility] ERT [id number] [facility] 2022-05-01 07:33:00 2022-05-01 09:07:00 Emergency Saqib Clarke [facility] 1.2840.114 350.1.13.10 4.2.7.2.686 [id number] [facility] 2022-02-08 01:00:00 2022-02-08 03:03:00 Emergency X BEREKET BENJAMIN [facility] ERT [id number] [facility] 2022-02-08 01:00:00 2022-02-08 03:03:00 Emergency Benjamin Ashford [facility] 1.2840.114 350.1.13.10 4.2.7.2.686 [id number] [id number] [facility] 2021-10-14 16:40:00 2021-10-14 19:30:00 Emergency X CARMEN MARIE [facility] ERT [id number] [facility] 2021-10-14 16:40:00 2021-10-14 19:30:00 Emergency Marie Morales Dee [facility] 1.2.840.114 350.1.13.10 4.2.7.2.686 [id number] [id number] [facility] 2021-05-15 12:11:58 2021-05-15 23:59:00 Hospital Encounter Geoff Cardona [facility] 1.2.840.114 350.1.13.10 4.2.7.2.686 [id number] [facility] 2021-05-15 12:30:00 2021-05-15 12:30:00 Outpatient R GEOFF CARDONA [facility] [id number] [facility] 2021-05-08 12:30:00 2021-05-08 23:59:00 Hospital Encounter Kiki Mathur [facility] 1.2.840.114 350.1.13.10 4.2.7.2.686 [id number] [facility] 2021-05-08 12:30:00 2021-05-08 12:30:00 Outpatient KIKI GODINEZ [facility] [id number] [facility] 2021-05-06 03:01:00 2021-05-06 04:28:00 Emergency Saqib Clarke [facility] 1.2.840.114 350.1.13.10 4.2.7.2.686 [id number] [facility] 2021-05-06 03:01:00 2021-05-06 04:28:00 Emergency X SAQIB CLARKE [facility] ERT [id number] [facility] 2021-03-14 21:49:00 2021-03-15 01:22:00 Emergency Chapito Contreras [facility] 1.2.840.114 350.1.13.10 4.2.7.2.686 [id number] [id number] [facility] 2021-03-14 21:49:00 2021-03-15 01:22:00 Emergency Chapito Contreras [facility] 1.2.840.114 350.1.13.10 4.2.7.2.686 [id number] 2021-03-14 21:49:00 2021-03-14 21:49:00 Emergency CHAPITO VELASQUEZ [facility] ERT [id number] [facility] 2020-09-08 16:52:00 2020-09-08 18:13:00 Emergency Saqib Clarke [facility] 1.2.840.114 350.1.13.10 4.2.7.2.686 [id number] [facility] 2020-09-08 16:52:00 2020-09-08 18:13:00 Emergency Saqib Clarke [facility] 1.2.840.114 350.1.13.10 4.2.7.2.686 [id number] 2020-09-08 16:52:00 2020-09-08 16:52:00 Emergency SAQIB MEDRANO [facility] ERT [id number] [facility] 2020-09-06 09:52:00 2020-09-06 13:38:00 Emergency Nidia Solano [facility] 1.2.840.114 350.1.13.10 4.2.7.2.686 [id number] [id number] [facility] 2020-09-06 09:52:00 2020-09-06 13:38:00 Emergency Nidia Solano [facility] 1.2.840.114 350.1.13.10 4.2.7.2.686 [id number] 2020-09-06 09:52:00 2020-09-06 09:52:00 Emergency X [facility] ERT [id number] [facility] 2020-09-06 00:00:00 2020-09-06 00:00:00 Orders Only Doctor Unassigned, [place] [facility] 1.2.840.114 350.1.13.10 4.2.7.2.686 [id number] [facility] 2020-09-06 00:00:00 2020-09-06 00:00:00 Orders Only Doctor Unassigned, [place] [facility] 1.2.840.114 350.1.13.10 4.2.7.2.686 [id number] 2020-08-26 23:45:00 2020-08-30 08:05:00 Emergency Jeremy Ashfordvandana No [facility] 1.2.840.114 350.1.13.10 4.2.7.2.686 [id number] [facility] 2020-08-26 23:45:00 2020-08-30 08:05:00 Emergency Benjamin Ashford [facility] 1.2.840.114 350.1.13.10 4.2.7.2.686 [id number] 2020-08-26 23:43:00 2020-08-26 23:43:00 Emergency X [facility] ERT [id number] [facility] 2020-07-09 19:41:00 2020-07-10 00:40:00 Emergency Chapito Contreras [facility] 1.2.840.114 350.1.13.10 4.2.7.2.686 [id number] [facility] 2020-07-09 19:41:00 2020-07-10 00:40:00 Emergency Chapito Contreras [facility] 1.2.840.114 350.1.13.10 4.2.7.2.686 [id number] [id number] 2020-07-09 19:41:00 2020-07-09 19:41:00 Emergency X CHAPITO CONTRERAS [facility] ERT [id number] [facility] 2005-04-01 12:20:00 2005-04-01 20:14:00 Emergency X MARIBELL CEDILLO [facility] ERT [id number] [facility] Results Test Description Test Time [...] clinically for any signs and symptomsof cystitis. [facility] Exlxa0480-87-17 17:02:35* Test Item Value Reference Range Interpretation Comme nts NA (test code = 3799455139) 139 mmol/L 135-145 K (test code = 7799389249) 4.4 mmol/L 3.5-5.0 CL (test code = 5790791935) 101 mmol/L 98-108 CO2 TOTAL (test code = 0831563754) 31 mmol/L 23-31 AGAP (test code = 4420116928) 7 2-16 BUN (test code = 5818251347) 12 mg/dL 7-23 GLUCOSE (test code = 4240742833) 100 mg/dL 70-110 CREATININE (test code = 2160-0) 0.61 mg/dL 0.60-1.25 TOTAL BILI (test code = 1980774318) 0.5 mg/dL 0.1-1.1 CALCIUM (test code = 5242261034) 9.8 mg/dL 8.6-10.6 T PROTEIN (test code = 1081889803) 8.4 g/dL 6.3-8.2 H ALBUMIN (test code = 3848822419) 4.7 g/dL 3.5-5.0 ALK PHOS (test code = 7248448048) 84 U/L 34-122 ALTv (test code = 1742-6) 23 U/L 5-50 AST(SGOT) (test code = 8320714880) 25 U/L 13-40 eGFR (test code = 95205-2) 120.0 mL/min/1.73m2 CKD-EPI eGFR (2020). Assuming creatinine has been stable day-to-day for at least three months, the eGFR indicates Category G1 (>= 90 mL/min/1.73 m2) Lab Interpretation (test code = 43062-5) [facility]normal [facility] Sqbrm6354-55-31 17:01:54* Test Item Value Reference Range Interpretation Comme nts LIPASE (test code = 6243618495) 42 U/L 0-220 Lab Interpretation (test cod e = 91275-2) Normal [facility]2024-01-18 07:16:16* Test Item Value Reference Range Interpretation Comme nts MAGNESIUM (test code = 9978543335) 2.2 mg/dL 1.7-2.4 Lab Interpretation (test cod e = 09266-1) Normal [facility] (71490)2023-11-06 07:16:15* Test Item Value Reference Range Interpretation Comme nts NA (test code = 6984703659) 138 mmol/L 135-145 K (test code = 9169562247) 3.5 mmol/L 3.5-5.0 CL (test code = 6821413749) 106 mmol/L 98-108 CO2 TOTAL (test code = 2279536774) 23 mmol/L 23-31 AGAP (test code = 4965159735) 9 2-16 BUN (test code = 4309995621) 18 mg/dL 7-23 GLUCOSE (test code = 5794349049) 110 mg/dL 70-110 CREATININE (test code = 9060304190) 0.73 mg/dL 0.60-1.25 TOTAL BILI (test code = 2241558546) 0.4 mg/dL 0.1-1.1 CALCIUM (test code = 2076660373) 9.4 mg/dL 8.6-10.6 T PROTEIN (test code = 5012650344) 8.5 g/dL 6.3-8.2 H ALBUMIN (test code = 6993130618) 4.8 g/dL 3.5-5.0 ALK PHOS (test code = 1460469978) 78 U/L 34-122 ALTv (test code = 1742-6) 42 U/L 5-50 AST(SGOT) (test code = 5252647516) 43 U/L 13-40 H eGFR (test code = 36375-3) 113.6 mL/min/1.73m2 CKD-EPI eGFR (2020). Assuming creatinine has been stable day-to-day for at least three months, the eGFR indicates Category G1 (>= 90 mL/min/1.73 m2) Lab Interpretation (test code = 30311-2) Abnormal [facility] 07:16:15* Test Item Value Reference Range Interpretation Comme nts LIPASE (test code = 0226062637) 118 U/L 0-220 Lab Interpretation (test cod e = 34493-6) Normal [facility] with Zuae4013-59-24 06:49:12* Test Item Value Reference Range Interpretation [...] 33.5 g/dL 31.2-35.0 RDW-SD (test code = 37891-5) 46.4 fL 38.5-51.6 RDW-CV (test code = 788-0) 13.7 % 12.1-15.4 PLT (test code = 777-3) 323 See_Comment [Automated messa ge] The system which generated this result transmitted reference range: 150 - 328 10*3/?L. The reference range was not used to interpret this result as normal/abnormal. MPV (test code = 62525-1) 9.8 fL 9.8-13.0 NRBC/100 WBC (test code = 4732100729) 0.0 See_Comment [Automated [employer] ssage] The system which generated this result transmitted reference range: 0.0 - 10.0 /100 WBCs. The reference range was not used to interpret this result as normal/abnormal. NRBC x10^3 (test code = 4819265990) See_Comment [Automated messa ge] The system which generated this result transmitted reference range: 10*3/?L. The reference range was not used to interpret this result as normal/abnormal. GRAN MAT (NEUT) % (test code = 770-8) 56.1 % IMM GRAN % (test code = 9520406451) 0.50 % LYMPH % (test code = 736-9) 34.8 % MONO % (test code = 5905-5) 6.3 % EOS % (test code = 713-8) 1.4 % BASO % (test code = 706-2) 0.9 % GRAN MAT x10^3(ANC) (test code = 1798238126) 6.38 10*3/uL 1.99-6.95 IMM GRAN x10^3 (test code = 6163360065) 0.06 10*3/uL 0.00-0.06 LYMPH x10^3 (test code = 731-0) 3.95 10*3/uL 1.09-3.23 H MONO x10^3 (test code = 742-7) 0.71 10*3/uL 0.36-1.02 EOS x10^3 (test code = 711-2) 0.16 10*3/uL 0.06-0.53 BASO x10^3 (test code = 704-7) 0.10 10*3/uL 0.01-0.09 H Lab Interpretation (test code = 00767-4) Abnormal [facility] W LRTAASBJ1773-58-35 09:00:37Ordering physician: JOSE FRANCISCO WALTERS Indication: Acute [...] andpelvis demonstrate no osseous destructive lesion. [facility] Tzcfs6694-77-01 06:29:13* Test Item Value Reference Range Interpretation Comme nts NA (test code = 7922558688) 138 mmol/L 135-145 K (test code = 1068244414) 3.8 mmol/L 3.5-5.0 CL (test code = 1121679773) 106 mmol/L 98-108 CO2 TOTAL (test code = 6739790839) 21 mmol/L 23-31 L AGAP (test code = 1927565347) 11 2-16 BUN (test code = 2109438196) 13 mg/dL 7-23 GLUCOSE (test code = 6856090100) 113 mg/dL 70-110 H CREATININE (test code = 5237066520) 0.63 mg/dL 0.60-1.25 TOTAL BILI (test code = 2695008791) 0.7 mg/dL 0.1-1.1 CALCIUM (test code = 3239733135) 9.6 mg/dL 8.6-10.6 T PROTEIN (test code = 0452961247) 9.0 g/dL 6.3-8.2 H ALBUMIN (test code = 6195651014) 5.0 g/dL 3.5-5.0 ALK PHOS (test code = 5813722230) 73 U/L 34-122 ALTv (test code = 1742-6) 33 U/L 5-50 AST(SGOT) (test code = 8146249720) 33 U/L 13-40 eGFR (test code = 24100-5) 118.8 mL/min/1.73m2 CKD-EPI eGFR (2020). Assuming creatinine has been stable day-to-day for at least three months, the eGFR indicates Category G1 (>= 90 mL/min/1.73 m2) Lab Interpretation (test code = 29291-2) Abnormal [facility], Asqkq0285-43-34 06:29:13* Test Item Value Reference Range Interpretation Comme nts LIPASE (test code = 5344431592) 89 U/L 0-220 Lab Interpretation (test cod e = 49132-9) [facility] with [id number] 06:17:56* Test Item Value Reference Range Interpretation Comme nts WBC (test code = 6690-2) 11.54 See_Comment H [Automated [employer]] The system which generated this result transmitted reference range: 4.20 - 10.70 10*3/?L. The reference range was not used to interpret this result as normal/abnormal. RBC (test code = 789-8) 5.24 See_Comment [Automated [employer]] The system which generated this result transmitted [...] 33.9 g/dL 31.2-35.0 RDW-SD (test code = 89178-7) 46.6 fL 38.5-51.6 RDW-CV (test code = 788-0) 14.0 % 12.1-15.4 PLT (test code = 777-3) 312 See_Comment [Automated [employer]] The system which generated this result transmitted reference range: 150 - 328 10*3/?L. The reference range was not used to interpret this result as normal/abnormal. MPV (test code = 07096-9) 9.7 fL 9.8-13.0 L NRBC/100 WBC (test code = 4516314616) 0.0 See_Comment [Automated me ssage] The system which generated this result transmitted reference range: 0.0 - 10.0 /100 WBCs. The reference range was not used to interpret this result as normal/abnormal. NRBC x10^3 (test code = 7098673278) See_Comment [Automated messa ge] The system which generated this result transmitted reference range: 10*3/?L. The reference range was not used to interpret this result as normal/abnormal. GRAN MAT (NEUT) % (test code = 770-8) 54.9 % IMM GRAN % (test code = 1724719107) 0.30 % LYMPH % (test code = 736-9) 36.0 % MONO % (test code = 5905-5) 6.3 % EOS % (test code = 713-8) 1.6 % BASO % (test code = 706-2) 0.9 % GRAN MAT x10^3(ANC) (test code = 9845051620) 6.35 10*3/uL 1.99-6.95 IMM GRAN x10^3 (test code = 8192907663) 0.03 10*3/uL 0.00-0.06 LYMPH x10^3 (test code = 731-0) 4.15 10*3/uL 1.09-3.23 H MONO x10^3 (test code = 742-7) 0.73 10*3/uL 0.36-1.02 EOS x10^3 (test code = 711-2) 0.18 10*3/uL 0.06-0.53 BASO x10^3 (test code = 704-7) 0.10 10*3/uL 0.01-0.09 H Lab Interpretation (test code = 80874-1) Abnormal [facility] GLUCOSE (AUTOMATED)2023-11-01 05:42:28* Test Item Value Reference Range Interpretation Comme nts POCT GLU (test code = 3996844569) 110 mg/dL 70-110 Lab Interpretation (test cod e = 33321-3) Normal [facility] ABDOMEN PELVIS W [id number] 07:44:05Ordering physician: CHAPITO CONTRERAS Indication: Acute right [...] lesion. 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 The reference range was not used to interpret this result as normal/abnormal. RBC (test code = 789-8) 5.23 See_Comment [Automated MuciMed] The system which generated this result transmitted [...] 33.9 g/dL 31.2-35.0 RDW-SD (test code = 09600-4) 45.0 fL 38.5-51.6 RDW-CV (test code = 788-0) 13.6 % 12.1-15.4 PLT (test code = 777-3) 307 See_Comment [Automated Revettoa ge] The system which generated this result transmitted reference range: 150 - 328 10*3/?L. The reference range was not used to interpret this result as normal/abnormal. MPV (test code = 73421-6) 9.3 fL 9.8-13.0 L NRBC/100 WBC (test code = 4358399895) 0.0 See_Comment [Automated AtBizz ssage] The system which generated this result transmitted reference range: 0.0 - 10.0 /100 WBCs. The reference range was not used to interpret this result as normal/abnormal. NRBC x10^3 (test code = 7587901346) See_Comment [Automated Revettoa ge] The system which generated this result transmitted reference range: 10*3/?L. The reference range was not used to interpret this result as normal/abnormal. SEG % (test code = 38768-9) 49 % 33-76 LYMPH % (test code = 13384-2) 40 % 14-54 MONO % (test code = 04597-2) 4 % 0-4 EOS % (test code = 50931-9) 7 % 0-3 H ANC (test code = 753-4) 5.81 10*3/uL 1.99-6.95 Lab Interpretation (test code = 93124-9) [facility] Lifkq0083-65-88 06:32:13* Test Item Value Reference Range Interpretation Comme nts NA (test code = 4050921575) 140 mmol/L 135-145 K (test code = 5891122404) 3.7 mmol/L 3.5-5.0 CL (test code = 1722177674) 105 mmol/L 98-108 CO2 TOTAL (test code = 7215264007) 23 mmol/L 23-31 AGAP (test code = 9325954493) 12 2-16 BUN (test code = 0205292150) 15 mg/dL 7-23 GLUCOSE (test code = 5087892658) 126 mg/dL 70-110 H CREATININE (test code = 0523178708) 0.89 mg/dL 0.60-1.25 TOTAL BILI (test code = 9612126697) 0.6 mg/dL 0.1-1.1 CALCIUM (test code = 2140250892) 9.5 mg/dL 8.6-10.6 T PROTEIN (test code = 0114226897) 8.6 g/dL 6.3-8.2 H ALBUMIN (test code = 2748821911) 4.7 g/dL 3.5-5.0 ALK PHOS (test code = 3534922236) 84 U/L 34-122 ALTv (test code = 1742-6) 38 U/L 5-50 AST(SGOT) (test code = 9458291128) 33 U/L 13-40 eGFR (test code = 77416-4) 107.0 mL/min/1.73m2 CKD-EPI eGFR (2020). Assuming creatinine has been stable day-to-day for at least three months, the eGFR indicates Category G1 (>= 90 mL/min/1.73 m2) Lab Interpretation (test code = 86692-8) [facility], Eqnft5389-47-00 06:31:52* Test Item Value Reference Range Interpretation Comme nts LIPASE (test code = 3177235161) 80 U/L 0-220 Lab Interpretation (test cod e = 35234-6) [facility] (NA, K, CL, CO2, GLUCOSE, BUN, CREATININE, CA)2023-09-26 06:00:26* Test Item Value Reference Range Interpretation Comme nts NA (test code = 8594654592) 139 mmol/L 135-145 K (test code = 8180694506) 3.9 mmol/L 3.5-5.0 CL (test code = 9995988274) 104 mmol/L 98-108 CO2 TOTAL (test code = 5899183173) 25 mmol/L 23-31 AGAP (test code = 9734305367) 10 2-16 BUN (test code = 2036428882) 14 mg/dL 7-23 GLUCOSE (test code = 6656839956) 109 mg/dL 70-110 CREATININE (test code = 6782569132) 0.77 mg/dL 0.60-1.25 CALCIUM (test code = 9237616164) 10.4 mg/dL 8.6-10.6 eGFR (test code = 63920-8) 112.5 mL/min/1.73m2 CKD-EPI eGFR (20 21). Assuming creatinine has been stable day-to-day for at least three months, the eGFR indicates Category G1 (>= 90 mL/min/1.73 m2) [facility] ChildrenHEP[facility] PAN[facility] (56247) (ALB,T.PRO,BILI T,BU/BC,ALT,AST,ALK PHOS)2023-09-26 06:00:26* Test Item Value Reference Range Interpretation Comme nts TOTAL BILI (test code = 2220200903) 0.6 mg/dL 0.1-1.1 BILI UNCON (test code = 3046027847) 0.4 mg/dL 0.1-1.1 BILI CONJ (test code = 1742406257) 0.0 mg/dL 0.0-0.3 T PROTEIN (test code = 6005821053) 8.6 g/dL 6.3-8.2 H ALBUMIN (test code = 1164400909) 4.7 g/dL 3.5-5.0 ALK PHOS (test code = 0793639881) 91 U/L 34-122 ALTv (test code = 1742-6) 40 U/L 5-50 AST(SGOT) (test code = 8600824221) 27 U/L 13-40 Lab Interpretation (test cod e = 64898-6) [facility]normal [facility]2023-[facility] 06:00:25* Test Item Value Reference Range Interpretation Comme nts LIPASE (test code = 4090210517) 73 U/L 0-220 Lab Interpretation (test cod e = 66620-9) Normal [facility] ChildrenCBC WITH [id number] 05:50:26* Test Item Value Reference Range Interpretation Comme nts WBC (test code = 6690-2) 10.08 See_Comment [Automated Revetto[employer]] The system which generated this result transmitted reference range: 4.20 - 10.70 10*3/?L. The reference range was not used to interpret this result as normal/abnormal. RBC (test code = 789-8) 5.24 See_Comment [Automated Revettoa ge] The system which generated this result [...] 33.8 g/dL 31.2-35.0 RDW-SD (test code = 83073-4) 44.0 fL 38.5-51.6 RDW-CV (test code = 788-0) 13.1 % 12.1-15.4 PLT (test code = 777-3) 317 See_Comment [Automated messa ge] The system which generated this result transmitted reference range: 150 - 328 10*3/?L. The reference range was not used to interpret this result as normal/abnormal. MPV (test code = 19005-4) 9.6 fL 9.8-13.0 L NRBC/100 WBC (test code = 9216933785) 0.0 See_Comment [Automated AtBizz ssage] The system which generated this result transmitted reference range: 0.0 - 10.0 /100 WBCs. The reference range was not used to interpret this result as normal/abnormal. NRBC x10^3 (test code = 8337749796) See_Comment [Automated messa ge] The system which generated this result transmitted reference range: 10*3/?L. The reference range was not used to interpret this result as normal/abnormal. GRAN MAT (NEUT) % (test code = 770-8) 50.9 % IMM GRAN % (test code = 5709975348) 0.30 % LYMPH % (test code = 736-9) 38.3 % MONO % (test code = 5905-5) 7.5 % EOS % (test code = 713-8) 2.2 % BASO % (test code = 706-2) 0.8 % GRAN MAT x10^3(ANC) (test code = 7763066578) 5.13 10*3/uL 1.99-6.95 IMM GRAN x10^3 (test code = 3904971200) 0.03 10*3/uL 0.00-0.06 LYMPH x10^3 (test code = 731-0) 3.86 10*3/uL 1.09-3.23 H MONO x10^3 (test code = 742-7) 0.76 10*3/uL 0.36-1.02 EOS x10^3 (test code = 711-2) 0.22 10*3/uL 0.06-0.53 BASO x10^3 (test code = 704-7) 0.08 10*3/uL 0.01-0.09 Lab Interpretation (test code = 88987-0) [facility]normal [facility] ChildrenTR[facility] [id number] 05:30:49* Test Item Value Reference Range Interpretation Comme nts TROPONIN I (test code = 2152106048) 0.001 ng/mL <=0.034 LAURIE (test code = [...] of biotin. Lab Interpretation (test code = 26655-4) Normal [facility]COMP[facility] METABOLIC PANEL (72615)2023-08-24 05:19:05* Test Item Value Reference Range Interpretation Comme nts NA (test code = 5133641195) 138 mmol/L 135-145 K (test code = 7286225613) 4.3 mmol/L 3.5-5.0 CL (test code = 1306374235) 100 mmol/L 98-108 CO2 TOTAL (test code = 2273471979) 25 mmol/L 23-31 AGAP (test code = 6260980698) 13 2-16 BUN (test code = 8155224594) 15 mg/dL 7-23 GLUCOSE (test code = 7863899232) 198 mg/dL 70-110 H CREATININE (test code = 3850700936) 0.86 mg/dL 0.60-1.25 TOTAL BILI (test code = 0478730736) 0.3 mg/dL 0.1-1.1 CALCIUM (test code = 9907793611) 10.3 mg/dL 8.6-10.6 T PROTEIN (test code = 0794520029) 8.6 g/dL 6.3-8.2 H ALBUMIN (test code = 7535945907) 4.5 g/dL 3.5-5.0 ALK PHOS (test code = 5322439869) 94 U/L 34-122 ALTv (test code = 1742-6) 44 U/L 5-50 AST(SGOT) (test code = 6079157541) 28 U/L 13-40 eGFR (test code = 41677-2) 108.8 mL/min/1.73m2 CKD-EPI eGFR (2020). Assuming creatinine has been stable day-to-day for at least three months, the eGFR indicates Category G1 (>= 90 mL/min/1.73 m2) Lab Interpretation (test code = 17162-7) Abnormal [facility] WITH [id number] 05:01:26* Test Item Value Reference Range Interpretation Comme nts WBC (test code = 6690-2) 10.38 See_Comment [Automated MuciMed] The system which generated this result transmitted reference range: 4.20 - 10.70 10*3/?L. The reference range was not used to interpret this result as normal/abnormal. RBC (test code = 789-8) 5.08 See_Comment [Automated MuciMed] The system which generated this result transmitted [...] 33.5 g/dL 31.2-35.0 RDW-SD (test code = 05138-4) 43.8 fL 38.5-51.6 RDW-CV (test code = 788-0) 13.0 % 12.1-15.4 PLT (test code = 777-3) 298 See_Comment [Automated messa ge] The system which generated this result transmitted reference range: 150 - 328 10*3/?L. The reference range was not used to interpret this result as normal/abnormal. MPV (test code = 74195-0) 10.0 fL 9.8-13.0 NRBC/100 WBC (test code = 3989562292) 0.0 See_Comment [Automated AtBizz ssage] The system which generated this result transmitted reference range: 0.0 - 10.0 /100 WBCs. The reference range was not used to interpret this result as normal/abnormal. NRBC x10^3 (test code = 7590017842) See_Comment [Automated messa ge] The system which generated this result transmitted reference range: 10*3/?L. The reference range was not used to interpret this result as normal/abnormal. GRAN MAT (NEUT) % (test code = 770-8) 52.4 % IMM GRAN % (test code = 5984176746) 0.30 % LYMPH % (test code = 736-9) 36.6 % MONO % (test code = 5905-5) 7.2 % EOS % (test code = 713-8) 2.6 % BASO % (test code = 706-2) 0.9 % GRAN MAT x10^3(ANC) (test code = 3466884182) 5.44 10*3/uL 1.99-6.95 IMM GRAN x10^3 (test code = 1319224632) 0.03 10*3/uL 0.00-0.06 LYMPH x10^3 (test code = 731-0) 3.80 10*3/uL 1.09-3.23 H MONO x10^3 (test code = 742-7) 0.75 10*3/uL 0.36-1.02 EOS x10^3 (test code = 711-2) 0.27 10*3/uL 0.06-0.53 BASO x10^3 (test code = 704-7) 0.09 10*3/uL 0.01-0.09 Lab Interpretation (test code = 14749-0) Abnormal [facility] GLUCOSE (AUTOMATED)2023-05-26 02:18:34* Test Item Value Reference Range Interpretation Comme nts POCT GLU (test code = 2871828028) 173 mg/dL 70-110 H Lab Interpretation (test cod e = 91694-6) Abnormal [facility] GLUCOSE(AGE >30DAYS)2023-05-26 02:17:00* Test Item Value Reference Range Interpretation Comme nts POCT Glu (age>30days) (test code = 3342) 173 mg/dL 70-110 A Lab Interpretation (test cod e = 07992-2) [facility]normal [facility]TR[facility] [id number] 01:41:57* Test Item Value Reference Range Interpretation Comme nts TROPONIN I (test code = 1355607441) 0.008 ng/mL <=0.034 LAURIE (test code = [...] of biotin. Lab Interpretation (test code = 10727-2) Normal [facility] GLUCOSE (AUTOMATED)2023-05-26 01:23:43* Test Item Value Reference Range Interpretation Comme nts POCT GLU (test code = 1880869550) 185 mg/dL 70-110 H Lab Interpretation (test cod e = 98552-8) Abnormal [facility] ChildrenN[facility]MINAL IAI-PYV5027-56-07 00:40:36* Test Item Value Reference Range Interpretation Comme nts NT-proBNP (test code = 56779-0) <=125 Lab Interpretation (test cod e = 93591-3) Normal [facility]TR[facility] L5081-36-57 00:06:55* Test Item Value Reference Range Interpretation Comme nts TROPONIN I (test code = 1111275606) 0.003 ng/mL <=0.034 LAURIE (test code = [...] of biotin. Lab Interpretation (test code = 33428-9) Normal [facility]MAG[facility]IUM2023-08-06 23:56:12* Test Item Value Reference Range Interpretation Comme nts MAGNESIUM (test code = 3404358592) 2.0 mg/dL 1.7-2.4 Lab Interpretation (test cod e = 74498-9) [facility] MET[facility]OLIC PANEL (59578)2023-05-25 23:55:52* Test Item Value Reference Range Interpretation Comme nts NA (test code = 4493536449) 138 mmol/L 135-145 K (test code = 0942891490) 4.3 mmol/L 3.5-5.0 CL (test code = 9875740355) 103 mmol/L 98-108 CO2 TOTAL (test code = 5376835251) 22 mmol/L 23-31 L AGAP (test code = 9176592010) 13 2-16 BUN (test code = 3963244318) 22 mg/dL 7-23 GLUCOSE (test code = 7029779183) 274 mg/dL 70-110 H CREATININE (test code = 3311257343) 0.79 mg/dL 0.60-1.25 TOTAL BILI (test code = 4397533113) 0.6 mg/dL 0.1-1.1 CALCIUM (test code = 4370217354) 9.2 mg/dL 8.6-10.6 T PROTEIN (test code = 8637835970) 8.4 g/dL 6.3-8.2 H ALBUMIN (test code = 7383836040) 4.5 g/dL 3.5-5.0 ALK PHOS (test code = 4748945246) 88 U/L 34-122 ALTv (test code = 1742-6) 48 U/L 5-50 AST(SGOT) (test code = 0381891887) 37 U/L 13-40 eGFR (test code = 9572840714) 106.1 mL/min/1.73m2 LAURIE (test code = LAURIE) [...] imaging tests). Lab Interpretation (test code = 26013-5) [facility]normal [facility] 23:55:32* Test Item Value Reference Range Interpretation Comme nts LIPASE (test code = 3363781198) 154 U/L 0-220 Lab Interpretation (test cod e = 77354-8) Normal [facility] WITH AYBS1459-62-57 23:33:34* Test Item Value Reference Range Interpretation [...] 33.7 g/dL 31.2-35.0 RDW-SD (test code = 13567-1) 45.4 fL 38.5-51.6 RDW-CV (test code = 788-0) 13.4 % 12.1-15.4 PLT (test code = 777-3) 286 See_Comment [Automated messa ge] The system which generated this result transmitted reference range: 150 - 328 10*3/?L. The reference range was not used to interpret this result as normal/abnormal. MPV (test code = 70614-1) 10.2 fL 9.8-13.0 NRBC/100 WBC (test code = 0026562170) 0.0 See_Comment [Automated me ssage] The system which generated this result transmitted reference range: 0.0 - 10.0 /100 WBCs. The reference range was not used to interpret this result as normal/abnormal. NRBC x10^3 (test code = 9818132361) See_Comment [Automated me ssage] The system which generated this result transmitted reference range: 10*3/?L. The reference range was not used to interpret this result as normal/abnormal. GRAN MAT (NEUT) % (test code = 770-8) 57.3 % IMM GRAN % (test code = 4934468448) 0.40 % LYMPH % (test code = 736-9) 32.6 % MONO % (test code = 5905-5) 6.8 % EOS % (test code = 713-8) 1.9 % BASO % (test code = 706-2) 1.0 % GRAN MAT x10^3(ANC) (test code = 7660478581) 5.34 10*3/uL 1.99-6.95 IMM GRAN x10^3 (test code = 9202249007) 0.04 10*3/uL 0.00-0.06 LYMPH x10^3 (test code = 731-0) 3.04 10*3/uL 1.09-3.23 MONO x10^3 (test code = 742-7) 0.63 10*3/uL 0.36-1.02 EOS x10^3 (test code = 711-2) 0.18 10*3/uL 0.06-0.53 BASO x10^3 (test code = 704-7) 0.09 10*3/uL 0.01-0.09 [facility] with Ustsvjqytkpd2270-06-26 07:42:13* Test Item Value Reference Range Interpretation [...] 33.3 g/dL 31.2-35.0 RDW-SD (test code = 16528-5) 44.4 fL 38.5-51.6 RDW-CV (test code = 788-0) 13.6 % 12.1-15.4 PLT (test code = 777-3) 187 See_Comment [Automated messa ge] The system which generated this result transmitted reference range: 150 - 328 10*3/?L. The reference range was not used to interpret this result as normal/abnormal. MPV (test code = 74617-9) 10.4 fL 9.8-13.0 NRBC/100 WBC (test code = 9280547407) 0.0 See_Comment [Automated AtBizz ssage] The system which generated this result transmitted reference range: 0.0 - 10.0 /100 WBCs. The reference range was not used to interpret this result as normal/abnormal. NRBC x10^3 (test code = 2018379329) See_Comment [Automated Revettoa ge] The system which generated this result transmitted reference range: 10*3/?L. The reference range was not used to interpret this result as normal/abnormal. GRAN MAT (NEUT) % (test code = 770-8) 55.0 % IMM GRAN % (test code = 4121608950) 0.50 % LYMPH % (test code = 736-9) 34.8 % MONO % (test code = 5905-5) 6.5 % EOS % (test code = 713-8) 2.5 % BASO % (test code = 706-2) 0.7 % GRAN MAT x10^3(ANC) (test code = 3237293435) 5.95 10*3/uL 1.99-6.95 IMM GRAN x10^3 (test code = 0334993290) 0.05 10*3/uL 0.00-0.06 LYMPH x10^3 (test code = 731-0) 3.77 10*3/uL 1.09-3.23 H MONO x10^3 (test code = 742-7) 0.70 10*3/uL 0.36-1.02 EOS x10^3 (test code = 711-2) 0.27 10*3/uL 0.06-0.53 BASO x10^3 (test code = 704-7) 0.08 10*3/uL 0.01-0.09 Lab Interpretation (test code = 97358-1) [facility] Fanbf6508-57-41 07:32:47* Test Item Value Reference Range Interpretation Comme nts NA (test code = 6435150768) 136 mmol/L 135-145 K (test code = 5911702146) 4.2 mmol/L 3.5-5.0 CL (test code = 6522922394) 104 mmol/L 98-108 CO2 TOTAL (test code = 4829446715) 21 mmol/L 23-31 L AGAP (test code = 7209725550) 11 2-16 BUN (test code = 7263949982) 17 mg/dL 7-23 GLUCOSE (test code = 0681640030) 125 mg/dL 70-110 H CREATININE (test code = 2789965244) 0.63 mg/dL 0.60-1.25 TOTAL BILI (test code = 8515780882) 0.3 mg/dL 0.1-1.1 CALCIUM (test code = 0092095255) 9.3 mg/dL 8.6-10.6 T PROTEIN (test code = 7960539194) 7.8 g/dL 6.3-8.2 ALBUMIN (test code = 3147438301) 4.5 g/dL 3.5-5.0 ALK PHOS (test code = 0021938159) 97 U/L 34-122 ALTv (test code = 1742-6) 42 U/L 5-50 AST(SGOT) (test code = 4061116146) 34 U/L 13-40 eGFR (test code = 8741653213) 137.7 mL/min/1.73m2 LAURIE (test code = LAURIE) [...] imaging tests). Lab Interpretation (test code = 50866-7) [facility] ChildrenLip[facility], Virqy1950-92-28 07:31:52* Test Item Value Reference Range Interpretation Comme [facility] LIPASE (test code = 7539225537) 73 U/L 0-220 Lab Interpretation (test cod e = 31323-8) Normal [facility] ChildrenTHYROID STIMULATING WFLXOGD0994-80-60 18:17:21 * Test Item Value Reference Range Interpretation Comme nts TSH (test code = 5907755986) See_Comment H [Automated [employer]] The system which generated this result transmitted reference range: 0.45 - 4.70 mIU/L. The reference range was not used to interpret this result as normal/abnormal. Lab Interpretation (test code = 62107-2) [facility]normal [facility] ChildrenFREE [id number] 16:53:41* Test Item Value Reference Range Interpretation Comme nts FREE T4 (test code = 1837682651) See_Comment L [Automated [employer]] The system which generated this result transmitted reference range: 0.78 - 2.20 ng/dL:. The reference range was not used to interpret this result as normal/abnormal. Lab Interpretation (test code = 26312-4) Abnormal [facility] [id number] 16:53:04* Test Item Value Reference Range Interpretation Comme nts FREE T3 (test code = 7503398673) 1.50 pg/mL 2.77-5.27 L Lab Interpretation (test cod e = 44428-3) Abnormal [facility]. METABOLIC PANEL (84069)2022-05-28 16:37:03* Test Item Value Reference Range Interpretation Comme nts NA (test code = 6954354249) 138 mmol/L 135-145 K (test code = 5386091894) 4.4 mmol/L 3.5-5 CL (test code = 2951383408) 101 mmol/L 98-108 CO2 TOTAL (test code = 8326724785) 27 mmol/L 23-31 AGAP (test code = 8449405601) 2-16 BUN (test code = 8187733701) 14 mg/dL 7-23 GLUCOSE (test code = 0439971844) 102 mg/dL 70-110 CREATININE (test code = 4808399039) 0.82 mg/dL 0.6-1.25 TOTAL BILI (test code = 3624009722) 0.5 mg/dL 0.1-1.1 CALCIUM (test code = 1792262421) 9.3 mg/dL 8.6-10.6 T PROTEIN (test code = 2820416766) 8.3 g/dL 6.3-8.2 H ALBUMIN (test code = 1855079440) 4.8 g/dL 3.5-5 ALK PHOS (test code = 8603063272) 75 U/L 34-122 ALTv (test code = 1742-6) 56 U/L 5-50 H AST(SGOT) (test code = 2905053432) 42 U/L 13-40 H eGFR (test code = 4781183187) mL/min/1.73m2 LAURIE (test code = LAURIE) Association [...] imaging tests). Lab Interpretation (test code = 23435-7) Abnormal [facility] WITH [id number] 16:25:38* Test Item Value Reference Range Interpretation Comme nts WBC (test code = 6690-2) See_Comment [[employer]] The system which generated this result transmitted reference range: 4.20 - 10.70 10*3/?L. The reference range was not used to interpret this result as normal/abnormal. RBC (test code = 789-8) See_Comment [[employer]] The system which generated this result transmitted [...] 33.0 g/dL 31.2-35 RDW-SD (test code = 48671-2) 48.1 fL 38.5-51.6 RDW-CV (test code = 788-0) 14.2 % 12.1-15.4 PLT (test code = 777-3) See_Comment [Automated Revetto[employer] ge] The system which generated this result transmitted reference range: 150 - 328 10*3/?L. The reference range was not used to interpret this result as normal/abnormal. MPV (test code = 21412-4) 9.5 fL 9.8-13 L NRBC/100 WBC (test code = 1953713505) See_Comment [Automated At[employer]izz ssage] The system which generated this result transmitted reference range: 0.0 - 10.0 /100 WBCs. The reference range was not used to interpret this result as normal/abnormal. NRBC x10^3 (test code = 9906251878) See_Comment [Automated [employer]etto[employer] ge] The system which generated this result transmitted reference range: 10*3/?L. The reference range was not used to interpret this result as normal/abnormal. GRAN MAT (NEUT) % (test code = 770-8) 56.3 % IMM GRAN % (test code = 8083477871) 0.70 % LYMPH % (test code = 736-9) 32.8 % MONO % (test code = 5905-5) 6.2 % EOS % (test code = 713-8) 2.7 % BASO % (test code = 706-2) 1.3 % GRAN MAT x10^3(ANC) (test code = 5775910596) 4.87 10*3/uL 1.99-6.95 IMM GRAN x10^3 (test code = 1972218262) 0.06 10*3/uL 0-0.06 LYMPH x10^3 (test code = 731-0) 2.84 10*3/uL 1.09-3.23 MONO x10^3 (test code = 742-7) 0.54 10*3/uL 0.36-1.02 EOS x10^3 (test code = 711-2) 0.23 10*3/uL 0.06-0.53 BASO x10^3 (test code = 704-7) 0.11 10*3/uL 0.01-0.09 H Lab Interpretation (test code = 12944-1) [facility] 06:03:53* Test Item Value Reference Range Interpretation Comme nts MAGNESIUM (test code = 3200888349) 1.8 mg/dL 1.7-2.4 Lab Interpretation (test cod e = 05664-9) [facility]TR[facility] [id number] 06:00:52* Test Item Value Reference Range Interpretation Comments TROPONIN I (test code = 3523841267) 0.002 ng/mL See_Comment [Automated message] The system [...] of biotin. Lab Interpretation (test code = 56177-3) [facility] (55173)2022-05-06 05:49:11* Test Item Value Reference Range Interpretation Comme nts NA (test code = 6560746261) 136 mmol/L 135-145 K (test code = 4640836748) 4.4 mmol/L 3.5-5 CL (test code = 3510141416) 100 mmol/L 98-108 CO2 TOTAL (test code = 6329729669) 23 mmol/L 23-31 AGAP (test code = 3051892486) 2-16 BUN (test code = 2533149926) 16 mg/dL 7-23 GLUCOSE (test code = 6644724648) 116 mg/dL 70-110 H CREATININE (test code = 6340682681) 0.81 mg/dL 0.6-1.25 TOTAL BILI (test code = 7829049468) 0.6 mg/dL 0.1-1.1 CALCIUM (test code = 2862246037) 10.3 mg/dL 8.6-10.6 T PROTEIN (test code = 8337688945) 9.2 g/dL 6.3-8.2 H ALBUMIN (test code = 1237748170) 5.3 g/dL 3.5-5 H ALK PHOS (test code = 4166466697) 89 U/L 34-122 ALTv (test code = 1742-6) 44 U/L 5-50 AST(SGOT) (test code = 6319899996) 36 U/L 13-40 eGFR (test code = 2793136360) mL/min/1.73m2 LAURIE (test code = LAURIE) Association [...] imaging tests). Lab Interpretation (test code = 70631-9) [facility]normal [facility]22-[facility] 05:48:51* Test Item Value Reference Range Interpretation Comme nts LIPASE (test code = 0321407848) 67 U/L 0-220 Lab Interpretation (test cod e = 84964-7) [facility] WITH [id number] 05:36:33* Test Item Value Reference Range Interpretation [...] 34.1 g/dL 31.2-35 RDW-SD (test code = 03211-4) 45.9 fL 38.5-51.6 RDW-CV (test code = 788-0) 13.9 % 12.1-15.4 PLT (test code = 777-3) See_Comment [Automated messa ge] The system which generated this result transmitted reference range: 150 - 328 10*3/?L. The reference range was not used to interpret this result as normal/abnormal. MPV (test code = 91997-5) 9.5 fL 9.8-13 L NRBC/100 WBC (test code = 0909359784) See_Comment [Automated [employer] ssage] The system which generated this result transmitted reference range: 0.0 - 10.0 /100 WBCs. The reference range was not used to interpret this result as normal/abnormal. NRBC x10^3 (test code = 1950590579) See_Comment [Automated Revettoa ge] The system which generated this result transmitted reference range: 10*3/?L. The reference range was not used to interpret this result as normal/abnormal. GRAN MAT (NEUT) % (test code = 770-8) 60.3 % IMM GRAN % (test code = 6535706383) 0.80 % LYMPH % (test code = 736-9) 27.6 % MONO % (test code = 5905-5) 6.8 % EOS % (test code = 713-8) 3.5 % BASO % (test code = 706-2) 1.0 % GRAN MAT x10^3(ANC) (test code = 0946307747) 6.95 10*3/uL 1.99-6.95 IMM GRAN x10^3 (test code = 0111563435) 0.09 10*3/uL 0-0.06 H LYMPH x10^3 (test code = 731-0) 3.19 10*3/uL 1.09-3.23 MONO x10^3 (test code = 742-7) 0.79 10*3/uL 0.36-1.02 EOS x10^3 (test code = 711-2) 0.40 10*3/uL 0.06-0.53 BASO x10^3 (test code = 704-7) 0.12 10*3/uL 0.01-0.09 H Lab Interpretation (test code = 19825-8) Abnormal [facility]. METABOLIC PANEL ([id number])2022-05-01 13:28:01* Test Item Value Reference Range Interpretation Comme nts NA (test code = 3570066681) 139 mmol/L 135-145 K (test code = 2995547124) 4.7 mmol/L 3.5-5 CL (test code = 8701010782) 104 mmol/L 98-108 CO2 TOTAL (test code = 3707746176) 23 mmol/L 23-31 AGAP (test code = 5040597923) 2-16 BUN (test code = 5786660638) 14 mg/dL 7-23 GLUCOSE (test code = 6939209111) 128 mg/dL 70-110 H CREATININE (test code = 9362162848) 0.62 mg/dL 0.6-1.25 TOTAL BILI (test code = 8374582314) 0.4 mg/dL 0.1-1.1 CALCIUM (test code = 3367779458) 9.2 mg/dL 8.6-10.6 T PROTEIN (test code = 3379724580) 8.1 g/dL 6.3-8.2 ALBUMIN (test code = 7543430247) 4.6 g/dL 3.5-5 ALK PHOS (test code = 2439968486) 92 U/L 34-122 ALTv (test code = 1742-6) 43 U/L 5-50 AST(SGOT) (test code = 9374140006) 30 U/L 13-40 eGFR (test code = 7531693233) mL/min/1.73m2 LAURIE (test code = LAURIE) Association [...] imaging tests). Lab Interpretation (test code = 88030-6) Abnormal [facility] WITH [id number] 13:20:02* Test Item Value Reference Range Interpretation [...] 32.8 g/dL 31.2-35 RDW-SD (test code = 55045-6) 47.5 fL 38.5-51.6 RDW-CV (test code = 788-0) 14.1 % 12.1-15.4 PLT (test code = 777-3) See_Comment [Automated messa ge] The system which generated this result transmitted reference range: 150 - 328 10*3/?L. The reference range was not used to interpret this result as normal/abnormal. MPV (test code = 08527-2) 9.3 fL 9.8-13 L NRBC/100 WBC (test code = 9543274501) See_Comment [Automated AtBizz ssage] The system which generated this result transmitted reference range: 0.0 - 10.0 /100 WBCs. The reference range was not used to interpret this result as normal/abnormal. NRBC x10^3 (test code = 0228093245) See_Comment [Automated messa ge] The system which generated this result transmitted reference range: 10*3/?L. The reference range was not used to interpret this result as normal/abnormal. GRAN MAT (NEUT) % (test code = 770-8) 58.9 % IMM GRAN % (test code = 3790627598) 0.60 % LYMPH % (test code = 736-9) 29.2 % MONO % (test code = 5905-5) 6.8 % EOS % (test code = 713-8) 3.5 % BASO % (test code = 706-2) 1.0 % GRAN MAT x10^3(ANC) (test code = 2492364630) 5.80 10*3/uL 1.99-6.95 IMM GRAN x10^3 (test code = 5092322112) 0.06 10*3/uL 0-0.06 LYMPH x10^3 (test code = 731-0) 2.87 10*3/uL 1.09-3.23 MONO x10^3 (test code = 742-7) 0.67 10*3/uL 0.36-1.02 EOS x10^3 (test code = 711-2) 0.34 10*3/uL 0.06-0.53 BASO x10^3 (test code = 704-7) 0.10 10*3/uL 0.01-0.09 H Lab Interpretation (test code = 22722-4) [id number] 07:04:38* Test Item Value Reference Range Interpretation Comments TROPONIN I (test code = 8233260981) 0.002 ng/mL See_Comment [Automated message] The system [...] of biotin. Lab Interpretation (test code = 83697-9) [facility] [id number] 07:00:14* Test Item Value Reference Range Interpretation Comme nts NT-proBNP (test code = 6839903484) 25 pg/mL See_Comment [Automated message] The system which generated this result transmitted reference range: <=125. The reference range was not used to interpret this result as normal/abnormal. LAURIE (test code = LAURIE) Biotin has been reported to cause a negative bias, interpret results relative to patient's use of biotin. Lab Interpretation (test code = 20729-7) [facility]2022-[facility] 06:53:02* Test Item Value Reference Range Interpretation Comme nts ALCOHOL (test code = 2480363632) <10 mg/dL LAURIE (test code = LAURIE) <10 [id number] Toxic>100 Depression of DIRECTOR RETIREMENT>400 Fatalities Reported [facility] 06:50:57* Test Item Value Reference Range Interpretation Comme nts LIPASE (test code = 7998214513) 65 U/L 0-220 Lab Interpretation (test cod e = 58145-1) [facility]OLIC PANEL (33744)2022-02-08 06:50:57* Test Item Value Reference Range Interpretation Comme nts NA (test code = 5766115556) 138 mmol/L 135-145 K (test code = 2517179983) 4.3 mmol/L 3.5-5.0 CL (test code = 6731282594) 103 mmol/L 98-108 CO2 TOTAL (test code = 7757740593) 23 mmol/L 23-31 AGAP (test code = 3511275892) 2-16 BUN (test code = 8191519022) 14 mg/dL 7-23 GLUCOSE (test code = 9723877942) 142 mg/dL 70-110 H CREATININE (test code = 5789969690) 0.60 mg/dL 0.60-1.25 TOTAL BILI (test code = 4441883655) 0.5 mg/dL 0.1-1.1 CALCIUM (test code = 9307955467) 9.1 mg/dL 8.6-10.6 T PROTEIN (test code = 8564261835) 7.9 g/dL 6.3-8.2 ALBUMIN (test code = 1831046353) 4.5 g/dL 3.5-5.0 ALK PHOS (test code = 6913350712) 81 U/L 34-122 ALTv (test code = 1742-6) 28 U/L 5-50 AST(SGOT) (test code = 5553537511) 24 U/L 13-40 eGFR (test code = 3116119251) mL/min/1.73m2 LAURIE (test code = LAURIE) Association [...] imaging tests). Lab Interpretation (test code = 14854-7) Abnormal [facility] ChildrenACTIVATED PARTIAL THRMPLAS [id number] 06:47:31* Test Item Value Reference Range Interpretation Comme nts APTT Patient (test code = 3173-2) See_Comment [Automated message] The system which generated this result transmitted reference range: 23 - 38 Seconds. The reference range was not used to interpret this result as normal/abnormal. LAURIE (test code = LAURIE) The [facility] patient population mean normal value for aPTT is 30 seconds. Lab Interpretation (test code = 01647-6) Normal [facility] ChildrenPROTHROMBIN TIME / [id number] 06:45:33* Test Item Value Reference Range Interpretation Comme nts PROTIME PATIENT (test code = 5964-2) See_Comment [Automated Revettoa ge] The system which generated this result transmitted reference range: 12.0 - 14.7 Seconds. The reference range was not used to interpret this result as normal/abnormal. INR (test code = 6301-6) Normal INR <1.1; Warfarin Therapeutic range 2.0 to 3.0 or 2.5 to 3.5, depending upon the indications. Lab Interpretation (test code = 11835-7) [facility] WITH [id number] 06:37:36* Test Item Value Reference Range Interpretation Comme nts WBC (test code = 6690-2) See_Comment [Automated messa ge] The system which generated this result transmitted reference range: 4.20 - 10.70 10*3/?L. The reference range was not used to interpret this result as normal/abnormal. RBC (test code = 789-8) See_Comment [Automated Revettoa ge] The system which generated this result [...] 33.4 g/dL 31.2-35.0 RDW-SD (test code = 54476-6) 42.7 fL 38.5-51.6 RDW-CV (test code = 788-0) 13.1 % 12.1-15.4 PLT (test code = 777-3) See_Comment [Automated messa ge] The system which generated this result transmitted reference range: 150 - 328 10*3/?L. The reference range was not used to interpret this result as normal/abnormal. MPV (test code = 28596-9) 9.7 fL 9.8-13.0 L NRBC/100 WBC (test code = 0795794201) See_Comment [Automated AtBizz ssage] The system which generated this result transmitted reference range: 0.0 - 10.0 /100 WBCs. The reference range was not used to interpret this result as normal/abnormal. NRBC x10^3 (test code = 2852818051) <0.01 See_Comment [Automated Revettoa ge] The system which generated this result transmitted reference range: 10*3/?L. The reference range was not used to interpret this result as normal/abnormal. GRAN MAT (NEUT) % (test code = 770-8) 54.9 % IMM GRAN % (test code = 2984220179) 0.70 % LYMPH % (test code = 736-9) 32.9 % MONO % (test code = 5905-5) 8.7 % EOS % (test code = 713-8) 2.0 % BASO % (test code = 706-2) 0.8 % GRAN MAT x10^3(ANC) (test code = 3859647013) 5.84 10*3/uL 1.99-6.95 IMM GRAN x10^3 (test code = 6608543440) 0.07 10*3/uL 0.00-0.06 H LYMPH x10^3 (test code = 731-0) 3.50 10*3/uL 1.09-3.23 H MONO x10^3 (test code = 742-7) 0.92 10*3/uL 0.36-1.02 EOS x10^3 (test code = 711-2) 0.21 10*3/uL 0.06-0.53 BASO x10^3 (test code = 704-7) 0.09 10*3/uL 0.01-0.09 Lab Interpretation (test code = 46065-3) [facility]normal [facility] ChildrenTR[facility] [id number] 01:09:15* Test Item Value Reference Range Interpretation Comments TROPONIN I (test code = 8465098191) 0.003 ng/mL See_Comment [Automated message] The system [...] of biotin. Lab Interpretation (test code = 65699-7) [facility] METABOLIC PANEL (62737)2021-10-15 00:56:56* Test Item Value Reference Range Interpretation Comme nts NA (test code = 4740055979) 135 mmol/L 135-145 K (test code = 3357630132) 4.6 mmol/L 3.5-5.0 CL (test code = 0550675086) 101 mmol/L 98-108 CO2 TOTAL (test code = 6936500739) 25 mmol/L 23-31 AGAP (test code = 7981376762) 2-16 BUN (test code = 9926771879) 20 mg/dL 7-23 GLUCOSE (test code = 4331149700) 130 mg/dL 70-110 H CREATININE (test code = 9692936307) 0.92 mg/dL 0.60-1.25 TOTAL BILI (test code = 3827361898) 0.4 mg/dL 0.1-1.1 CALCIUM (test code = 7920451864) 10.0 mg/dL 8.6-10.6 T PROTEIN (test code = 8235119576) 8.5 g/dL 6.3-8.2 H ALBUMIN (test code = 3072844648) 4.8 g/dL 3.5-5.0 ALK PHOS (test code = 9426498168) 89 U/L 34-122 ALTv (test code = 1742-6) 59 U/L 5-50 H AST(SGOT) (test code = 5060618275) 38 U/L 13-40 eGFR (test code = 0476287724) mL/min/1.73m2 LAURIE (test code = LAURIE) Association [...] imaging tests). Lab Interpretation (test code = 47436-4) [facility]normal [facility]21[facility] 00:56:36* Test Item Value Reference Range Interpretation Comme nts LIPASE (test code = 0049341853) 77 U/L 0-220 Lab Interpretation (test cod e = 99468-3) [facility] WITH [id number] 00:37:36* Test Item Value Reference Range Interpretation Comme nts WBC (test code = 6690-2) See_Comment [Automated messa ge] The system which generated this result transmitted reference range: 4.20 - 10.70 10*3/?L. The reference range was not used to interpret this result as normal/abnormal. RBC (test code = 789-8) See_Comment [Automated Revettoa ge] The system which generated this result [...] 33.6 g/dL 31.2-35.0 RDW-SD (test code = 58941-2) 44.2 fL 38.5-51.6 RDW-CV (test code = 788-0) 13.3 % 12.1-15.4 PLT (test code = 777-3) See_Comment [Automated Revettoa ge] The system which generated this result transmitted reference range: 150 - 328 10*3/?L. The reference range was not used to interpret this result as normal/abnormal. MPV (test code = 62103-5) 9.5 fL 9.8-13.0 L NRBC/100 WBC (test code = 0820776428) See_Comment [Automated AtBizz ssage] The system which generated this result transmitted reference range: 0.0 - 10.0 /100 WBCs. The reference range was not used to interpret this result as normal/abnormal. NRBC x10^3 (test code = 1423853325) <0.01 See_Comment [Automated messa ge] The system which generated this result transmitted reference range: 10*3/?L. The reference range was not used to interpret this result as normal/abnormal. GRAN MAT (NEUT) % (test code = 770-8) 55.3 % IMM GRAN % (test code = 3121138623) 0.60 % LYMPH % (test code = 736-9) 32.5 % MONO % (test code = 5905-5) 7.8 % EOS % (test code = 713-8) 2.7 % BASO % (test code = 706-2) 1.1 % GRAN MAT x10^3(ANC) (test code = 5788910832) 5.74 10*3/uL 1.99-6.95 IMM GRAN x10^3 (test code = 0169573850) 0.06 10*3/uL 0.00-0.06 LYMPH x10^3 (test code = 731-0) 3.37 10*3/uL 1.09-3.23 H MONO x10^3 (test code = 742-7) 0.81 10*3/uL 0.36-1.02 EOS x10^3 (test code = 711-2) 0.28 10*3/uL 0.06-0.53 BASO x10^3 (test code = 704-7) 0.11 10*3/uL 0.01-0.09 H Lab Interpretation (test code = 77936-1) [facility] (ID NOW RAPID TESTING)2021-03-15 04:10:11* Test Item Value Reference Range Interpretation Comme nts SARS-CoV-2 Rapid ID NOW (test code = 08337-7) Not Detected Not Detected LAURIE (test code = LAURIE) ID NOW COVID-19 As say is an isothermal nucleic acid amplification test intended for the qualitative detection of nucleic acid from SARS-CoV-2 viral RNA in nasopharyngeal (PARTS DATA WRITER) specimens. It is used under Emergency Use [...] clinically indicated. Lab Interpretation (test code = 16249-6) [facility]OLIC PANEL (76053)2021-03-15 03:35:30* Test Item Value Reference Range Interpretation Comme nts NA (test code = 3578945197) 139 mmol/L 135-145 K (test code = 6977454048) 3.2 mmol/L 3.5-5.0 L CL (test code = 9252172923) 109 mmol/L 98-108 H CO2 TOTAL (test code = 5023603838) 23 mmol/L 23-31 AGAP (test code = 7720012576) 2-16 BUN (test code = 1583348134) 19 mg/dL 7-23 GLUCOSE (test code = 8602387744) 150 mg/dL 70-110 H CREATININE (test code = 5548449787) 0.81 mg/dL 0.60-1.25 TOTAL BILI (test code = 4697668692) 0.3 mg/dL 0.1-1.1 CALCIUM (test code = 4116722192) 8.2 mg/dL 8.6-10.6 L T PROTEIN (test code = 8733520090) 6.9 g/dL 6.3-8.2 ALBUMIN (test code = 3845781864) 4.0 g/dL 3.5-5.0 ALK PHOS (test code = 1400703936) 77 U/L 34-122 ALTv (test code = 1742-6) 22 U/L 5-50 AST(SGOT) (test code = 9385476887) 26 U/L 13-40 eGFR (test code = 2106326128) mL/min/1.73m2 LAURIE (test code = LAURIE) Association [...] imaging tests). Lab Interpretation (test code = 65978-7) [facility]normal [facility]2021-[facility]-27 03:35:00* Test Item Value Reference Range Interpretation Comme nts APPEARANCE (test code = 9181398441) Clear Clear COLOR (test code = 6509746558) Yellow Yellow PH (test code = 3469800583) 4.8-8.0 SP GRAVITY (test code = 2635830374) 1.003-1.030 GLU U QUAL (test code = 9974991352) Normal Normal BLOOD (test code = 7778802099) Negative Negative KETONES (test code = 2001171462) 5 mg/dL Negative A PROTEIN (test code = 2887-8) Negative Negative UROBILIN (test code = 5485858888) Normal Normal BILIRUBIN (test code = 0879105298) Negative Negative NITRITE (test code = 9264319920) Negative Negative LEUK KENNY (test code = 0775639597) Negative Negative RBC/HPF (test code = 5323182500) <1 See_Comment [Automated MuciMed] The system which generated this result transmitted reference range: 0 - 3 HPF. The reference range was not used to interpret this result as normal/abnormal. WBC/HPF (test code = 7008356813) <1 See_Comment [Automated MuciMed] The system which generated this result transmitted reference range: 0 - 5 HPF. The reference range was not used to interpret this result as normal/abnormal. BACTERIA (test code = 0754885247) Negative Negative MUCOUS (test code = 6110704317) Slight Negative LPF A SQ EPITH (test code = 3777716789) <1 HPF Lab Interpretation (test code = 35333-7) Abnormal [facility] WITH [id number] 03:22:25* Test Item Value Reference Range Interpretation [...] 33.3 g/dL 31.2-35.0 RDW-SD (test code = 47663-4) 45.8 fL 38.5-51.6 RDW-CV (test code = 788-0) 13.7 % 12.1-15.4 PLT (test code = 777-3) See_Comment H [Automated messa ge] The system which generated this result transmitted reference range: 150 - 328 10*3/?L. The reference range was not used to interpret this result as normal/abnormal. MPV (test code = 22314-7) 9.4 fL 9.8-13.0 L NRBC/100 WBC (test code = 2933008211) See_Comment [Automated me ssage] The system which generated this result transmitted reference range: 0.0 - 10.0 /100 WBCs. The reference range was not used to interpret this result as normal/abnormal. NRBC x10^3 (test code = 4716026911) <0.01 See_Comment [Automated messa ge] The system which generated this result transmitted reference range: 10*3/?L. The reference range was not used to interpret this result as normal/abnormal. GRAN MAT (NEUT) % (test code = 770-8) 58.4 % IMM GRAN % (test code = 6278862208) 0.50 % LYMPH % (test code = 736-9) 30.5 % MONO % (test code = 5905-5) 7.5 % EOS % (test code = 713-8) 2.2 % BASO % (test code = 706-2) 0.9 % GRAN MAT x10^3(ANC) (test code = 0602342239) 5.75 10*3/uL 1.99-6.95 IMM GRAN x10^3 (test code = 9580907142) 0.05 10*3/uL 0.00-0.06 LYMPH x10^3 (test code = 731-0) 3.00 10*3/uL 1.09-3.23 MONO x10^3 (test code = 742-7) 0.74 10*3/uL 0.36-1.02 EOS x10^3 (test code = 711-2) 0.22 10*3/uL 0.06-0.53 BASO x10^3 (test code = 704-7) 0.09 10*3/uL 0.01-0.09 Lab Interpretation (test code = 91406-6) Abnormal [facility]. METABOLIC PANEL (83218)2020-09-08 23:50:00* Test Item Value Reference Range Interpretation Comme nts NA (test code = 2843488206) 139 mmol/L 135-145 K (test code = 3345199892) 4.1 mmol/L 3.5-5 CL (test code = 7566093466) 107 mmol/L 98-108 CO2 TOTAL (test code = 7505951824) 22 mmol/L 23-31 L AGAP (test code = 9041371265) 2-16 BUN (test code = 9081655675) 12 mg/dL 7-23 GLUCOSE (test code = 6091612201) 115 mg/dL 70-110 H CREATININE (test code = 7098955245) 0.54 mg/dL 0.6-1.25 L TOTAL BILI (test code = 3572288717) 0.3 mg/dL 0.1-1.1 CALCIUM (test code = 0811489361) 9.3 mg/dL 8.6-10.6 T PROTEIN (test code = 7281302769) 7.6 g/dL 6.3-8.2 ALBUMIN (test code = 5507456667) 4.3 g/dL 3.5-5 ALK PHOS (test code = 5197376344) 80 U/L 34-122 ALTv (test code = 1742-6) 21 U/L 5-50 AST(SGOT) (test code = 6541332522) 21 U/L 13-40 eGFR Calculation (Non-) (test code = 6912673423) mL/min/1.73m2 eGFR Calculation () (test code = 8622765000) mL/min/1.73m2 LAURIE (test code = LAURIE) Association [...] imaging tests). Lab Interpretation (test code = 20842-0) [facility]2020[facility] 23:50:00* Test Item Value Reference Range Interpretation Comme nts LIPASE (test code = 5884527570) 68 U/L 0-220 Lab Interpretation (test cod e = 50708-3) Normal [facility] WITH [id number] 23:22:00* Test Item Value Reference Range Interpretation [...] 34.1 g/dL 31.2-35 RDW-SD (test code = 30552-1) 40.8 fL 38.5-51.6 RDW-CV (test code = 788-0) 12.5 % 12.1-15.4 PLT (test code = 777-3) See_Comment [Automated messa ge] The system which generated this result transmitted reference range: 150 - 328 10*3/?L. The reference range was not used to interpret this result as normal/abnormal. MPV (test code = 41949-4) 9.1 fL 9.8-13 L NRBC/100 WBC (test code = 2760293850) See_Comment [Automated me ssage] The system which generated this result transmitted reference range: 0.0 - 10.0 /100 WBCs. The reference range was not used to interpret this result as normal/abnormal. NRBC x10^3 (test code = 7016012565) <0.01 See_Comment [Automated messa ge] The system which generated this result transmitted reference range: 10*3/?L. The reference range was not used to interpret this result as normal/abnormal. GRAN MAT (NEUT) % (test code = 770-8) 59.0 % IMM GRAN % (test code = 0159683345) 0.60 % LYMPH % (test code = 736-9) 31.3 % MONO % (test code = 5905-5) 6.6 % EOS % (test code = 713-8) 1.9 % BASO % (test code = 706-2) 0.6 % GRAN MAT x10^3(ANC) (test code = 5721785866) 5.85 10*3/uL 1.99-6.95 IMM GRAN x10^3 (test code = 4236965030) 0.06 10*3/uL 0-0.06 LYMPH x10^3 (test code = 731-0) 3.10 10*3/uL 1.09-3.23 MONO x10^3 (test code = 742-7) 0.65 10*3/uL 0.36-1.02 EOS x10^3 (test code = 711-2) 0.19 10*3/uL 0.06-0.53 BASO x10^3 (test code = 704-7) 0.06 10*3/uL 0.01-0.09 Lab Interpretation (test code = 81488-2) [facility] P[facility] W [id number] 17:21:17CT Abdomen and Pelvis with intravenous contrast. [...] fluid inthe abdomen or in the pelvis.2. Hepatomegaly.[facility]. METABOLIC PANEL (73789) 2020-09-06 16:39:00* Test Item Value Reference Range Interpretation Comme nts NA (test code = 0358378737) 138 mmol/L 135-145 K (test code = 1601004111) 4.2 mmol/L 3.5-5 CL (test code = 9612863141) 103 mmol/L 98-108 CO2 TOTAL (test code = 5159276542) 25 mmol/L 23-31 AGAP (test code = 7904531472) 2-16 BUN (test code = 8131735618) 17 mg/dL 7-23 GLUCOSE (test code = 9900795842) 124 mg/dL 70-110 H CREATININE (test code = 6638705716) 0.95 mg/dL 0.6-1.25 TOTAL BILI (test code = 3526374231) 0.4 mg/dL 0.1-1.1 CALCIUM (test code = 8439390458) 9.7 mg/dL 8.6-10.6 T PROTEIN (test code = 1092292079) 7.9 g/dL 6.3-8.2 ALBUMIN (test code = 3098210749) 4.5 g/dL 3.5-5 ALK PHOS (test code = 9150056906) 75 U/L 34-122 ALTv (test code = 1742-6) 28 U/L 5-50 AST(SGOT) (test code = 9343177867) 23 U/L 13-40 eGFR Calculation (Non-) (test code = 3054954189) mL/min/1.73m2 eGFR Calculation () (test code = 4954502912) mL/min/1.73m2 LAURIE (test code = LAURIE) Association [...] imaging tests). Lab Interpretation (test code = 58189-5) [facility]2020-[facility] 16:39:00* Test Item Value Reference Range Interpretation Comme nts LIPASE (test code = 6111152538) 70 U/L 0-220 Lab Interpretation (test cod e = 68320-0) Normal [facility] ChildrenMAG[facility]IUM2020-11-18 16:39:00* Test Item Value Reference Range Interpretation Comme nts MAGNESIUM (test code = 4624062055) 1.9 mg/dL 1.7-2.4 Lab Interpretation (test cod e = 28464-0) Normal [facility] ChildrenLactic Acid Whole [id number] 16:38:00* Test Item Value Reference Range Interpretation Comme nts LACTIC ACID (test code = 4457676472) 1.51 mmol/L [facility] WITH [id number] 16:20:00* Test Item Value Reference Range Interpretation Comme nts WBC (test code = 6690-2) See_Comment [Automated Revettoa ge] The system which generated this result transmitted reference range: 4.20 - 10.70 10*3/?L. The reference range was not used to interpret this result as normal/abnormal. RBC (test code = 789-8) See_Comment [Automated Revettoa ge] The system which generated this result [...] 32.8 g/dL 31.2-35 RDW-SD (test code = 84174-8) 42.2 fL 38.5-51.6 RDW-CV (test code = 788-0) 12.6 % 12.1-15.4 PLT (test code = 777-3) See_Comment [Automated [employer]] The system which generated this result transmitted reference range: 150 - 328 10*3/?L. The reference range was not used to interpret this result as normal/abnormal. MPV (test code = 52712-1) 9.3 fL 9.8-13 L NRBC/100 WBC (test code = 4494665647) See_Comment [Automated me ssage] The system which generated this result transmitted reference range: 0.0 - 10.0 /100 WBCs. The reference range was not used to interpret this result as normal/abnormal. NRBC x10^3 (test code = 1074032447) <0.01 See_Comment [Automated messa ge] The system which generated this result transmitted reference range: 10*3/?L. The reference range was not used to interpret this result as normal/abnormal. GRAN MAT (NEUT) % (test code = 770-8) 64.9 % IMM GRAN % (test code = 3972461040) 0.50 % LYMPH % (test code = 736-9) 25.0 % MONO % (test code = 5905-5) 7.5 % EOS % (test code = 713-8) 1.3 % BASO % (test code = 706-2) 0.8 % GRAN MAT x10^3(ANC) (test code = 8809740364) 5.99 10*3/uL 1.99-6.95 IMM GRAN x10^3 (test code = 0099299361) 0.05 10*3/uL 0-0.06 LYMPH x10^3 (test code = 731-0) 2.31 10*3/uL 1.09-3.23 MONO x10^3 (test code = 742-7) 0.69 10*3/uL 0.36-1.02 EOS x10^3 (test code = 711-2) 0.12 10*3/uL 0.06-0.53 BASO x10^3 (test code = 704-7) 0.07 10*3/uL 0.01-0.09 Lab Interpretation (test code = 41439-4) Abnormal [facility]. METABOLIC PANEL (47073)2020-08-30 10:29:00* Test Item Value Reference Range Interpretation Comme nts NA (test code = 4527388940) 139 mmol/L 135-145 K (test code = 8268740616) 4.7 mmol/L 3.5-5 CL (test code = 0834024038) 105 mmol/L 98-108 CO2 TOTAL (test code = 9656296809) 24 mmol/L 23-31 AGAP (test code = 5525123300) 2-16 BUN (test code = 4146436929) 21 mg/dL 7-23 GLUCOSE (test code = 3482500226) 109 mg/dL 70-110 CREATININE (test code = 0213253952) 0.99 mg/dL 0.6-1.25 TOTAL BILI (test code = 9773494856) 0.4 mg/dL 0.1-1.1 CALCIUM (test code = 0552224392) 9.4 mg/dL 8.6-10.6 T PROTEIN (test code = 3943387530) 7.4 g/dL 6.3-8.2 ALBUMIN (test code = 5621259989) 4.2 g/dL 3.5-5 ALK PHOS (test code = 8230577539) 68 U/L 34-122 ALTv (test code = 1742-6) 33 U/L 5-50 AST(SGOT) (test code = 7048302145) 28 U/L 13-40 eGFR Calculation (Non-) (test code = 7528054936) mL/min/1.73m2 eGFR Calculation () (test code = 1626521087) mL/min/1.73m2 LAURIE (test code = LAURIE) Association [...] or urine or abnormalities in imaging tests). [facility] WITH [id number] 09:50:00* Test Item Value Reference Range Interpretation [...] 32.4 g/dL 31.2-35 RDW-SD (test code = 68732-9) 43.6 fL 38.5-51.6 RDW-CV (test code = 788-0) 13.0 % 12.1-15.4 PLT (test code = 777-3) See_Comment [Automated message] The system which generated this result transmitted reference range: 150 - 328 10*3/?L. The reference range was not used to interpret this result as normal/abnormal. MPV (test code = 64424-8) 10.0 fL 9.8-13 NRBC/100 WBC (test code = 9714553809) See_Comment [Automated message] The system which generated this result transmitted reference range: 0.0 - 10.0 /100 WBCs. The reference range was not used to interpret this result as normal/abnormal. NRBC x10^3 (test code = 2239380168) <0.01 See_Comment [Automated message] The system which generated this result transmitted reference range: 10*3/?L. The reference range was not used to interpret this result as normal/abnormal. GRAN MAT (NEUT) % (test code = 770-8) 80.1 % IMM GRAN % (test code = 2965911677) 0.50 % LYMPH % (test code = 736-9) 12.5 % MONO % (test code = 5905-5) 6.5 % EOS % (test code = 713-8) 0.1 % BASO % (test code = 706-2) 0.3 % GRAN MAT x10^3(ANC) (test code = 8954049231) 12.09 10*3/uL 1.99-6.95 H IMM GRAN x10^3 (test code = 0076535750) 0.08 10*3/uL 0-0.06 H LYMPH x10^3 (test code = 731-0) 1.89 10*3/uL 1.09-3.23 MONO x10^3 (test code = 742-7) 0.98 10*3/uL 0.36-1.02 EOS x10^3 (test code = 711-2) <0.03 0.06-0.53 L BASO x10^3 (test code = 704-7) 0.04 10*3/uL 0.01-0.09 Lab Interpretation (test code = 84525-6) [facility]normal [facility] (86569) (ALB,T.PRO,BILI T,BU/BC,ALT,AST,ALK PHOS)2020-08-28 21:15:00* Test Item Value Reference Range Interpretation Comme nts TOTAL BILI (test code = 9760791659) 0.6 mg/dL 0.1-1.1 BILI UNCON (test code = 4801758613) 0.4 mg/dL 0.1-1.1 BILI CONJ (test code = 6187072783) 0.0 mg/dL 0-0.3 T PROTEIN (test code = 8970819584) 7.2 g/dL 6.3-8.2 ALBUMIN (test code = 4173722420) 3.9 g/dL 3.5-5 ALK PHOS (test code = 6396232759) 65 U/L 34-122 ALTv (test code = 1742-6) 20 U/L 5-50 AST(SGOT) (test code = 5131065851) 25 U/L 13-40 Lab Interpretation (test cod e = 80175-5) Normal [facility] ABDOMEN [id number] 18:22:30 Hepatomegaly with moderate hepatic steatosis. Cholelithiasis [...] which could be related to stone. [facility] 1 [id number] 14:32:06No acute cardiopulmonary abnormality. Preliminary Report Dictated [...] reviewed this study andagree with theabove report.[facility] ChildrenBasi Metabolic Panel (NA, K, CL, CO2, GLUCOSE, BUN, CREATININE, CA) 2020-08-28 11:39:00* Test Item Value Reference Range Interpretation Comme nts NA (test code = 3369867991) 137 mmol/L 135-145 K (test code = 2683073988) 3.9 mmol/L 3.5-5 CL (test code = 2466219629) 104 mmol/L 98-108 CO2 TOTAL (test code = 7284407424) 28 mmol/L 23-31 AGAP (test code = 7784688945) 2-16 BUN (test code = 2905332673) 15 mg/dL 7-23 GLUCOSE (test code = 2224924872) 96 mg/dL 70-110 CREATININE (test code = 5154223621) 0.68 mg/dL 0.6-1.25 CALCIUM (test code = 7729294478) 9.2 mg/dL 8.6-10.6 eGFR Calculation (Non-) (test code = 0078748724) mL/min/1.73m2 eGFR Calculation () (test code = 7698488566) mL/min/1.73m2 LAURIE (test code = LAURIE) Association [...] or urine or abnormalities in imaging tests). [facility] ABDOMEN PELVIS W WO [id number] 19:39:221. ?Diffuse bladder wall thickening is likely [...] this study and agree with theabove report.[facility] ChildrenPO[facility] GLUCOSE (AUTOMATED) 2020-08-27 19:34:00* Test Item Value Reference Range Interpretation Comme nts POCT GLU (test code = 4569706144) 95 mg/dL 70-110 Lab Interpretation (test cod e = 73740-8) Normal [facility] ChildrenTROPONIN [id number] 19:12:00* Test Item Value Reference Range Interpretation Comme nts TROPONIN I (test code = 6361925157) <0.012 See_Comment [Automated message] The system which [...] biotin. ? Lab Interpretation (test code = 81437-6) Normal [facility]PO[facility] GLUCOSE (AUTOMATED)2020-08-27 14:42:00* Test Item Value Reference Range Interpretation Comme nts POCT GLU (test code = 8467521026) 99 mg/dL 70-110 Lab Interpretation (test cod e = 48089-9) Normal [facility] ChildrenTROPONIN [id number] 13:09:00* Test Item Value Reference Range Interpretation Comme [facility] TROPONIN I (test code = 9074618516) <0.012 See_Comment [Automated message] The system which [...] biotin. ? Lab Interpretation (test code = 78516-6) Normal [facility] ChildrenLIPID PANEL (23007)(TOTAL CHOLESTEROL, TRIGLYCERIDES, HDL)2020-08-27 08:31:00* Test Item Value Reference Range Interpretation Comme nts CHOL (test code = 6380141481) 208 mg/dL 120-200 H HDL (test code = 9748447455) 28 mg/dL >40 L HDLC RATIO (test code = 6983431581) See_Comment H [Automated [employer]] The system which generated this result transmitted reference range: <=5.0. The reference range was not used to interpret this result as normal/abnormal. TRIG (test code = 8322529583) 351 mg/dL 30-170 H LDL CHOL (test code = 45749-4) 110 mg/dL See_Comment [Automated [employer]] The system which generated this result transmitted reference range: <=160. The reference range was not used to interpret this result as normal/abnormal. VLDL (test code = 9598609182) 70 mg/dL 5-60 H Lab Interpretation (test code = 02765-1) Abnormal [facility] ChildrenTHYROID STIMULATING [id number] 08:00:00 * Test Item Value Reference Range Interpretation Comme nts TSH (test code = 4496241826) See_Comment L Biotin has been reported to cause a negative bias, interpret results relative to patient's use of biotin. [Automated message] The system which generated this result transmitted reference range: 0.45 - 4.70 mIU/L. The reference range was not used to interpret this result as normal/abnormal. Lab Interpretation (test code = 11997-8) Abnormal [facility] ChildrenCOVID-19 (ID NOW RAPID TESTING)2020-08-27 07:03:00* Test Item Value Reference Range Interpretation Comme nts SARS-CoV-2 Rapid ID NOW (test code = 88335-8) Not Detected Not Detected LAURIE (test code = LAURIE) ID NOW COVID-19 As say is an isothermal nucleic acid amplification test intended for the qualitative detection of nucleic acid from SARS-CoV-2 viral RNA in nasopharyngeal (PARTS DATA WRITER) specimens. It is used under Emergency Use [...] clinically indicated. Lab Interpretation (test code = 47330-7) Normal [facility] / [facility] - DRUG SCREEN [id number] 06:58:00* Test Item Value Reference Range Interpretation Comme nts BENZO U (test code = 3176712671) Negative Negative HORACIO U (test code = 3395832754) Negative Negative AMPHET (test code = 3981150779) Negative Negative THC (test code = 4952981402) Negative Negative METHADONE (test code = 6976915117) Negative Negative Meth U (test code = 9503183236) Negative Negative OPIATES (test code = 7786234961) Negative Negative Cocaine Metabolite (test code = 2044359543) Negative Negative PROPOXY (test code = 6886482291) Negative Negative Tric U (test code = 1168479718) Negative Negative PCP (test code = 9951648913) Negative Negative OXYCOD (test code = 2121354064) Negative Negative LAURIE (test code = LAURIE) [...] legal testing). Lab Interpretation (test code = 65846-7) Normal [facility] ChildrenUrinalysis2020-11-08 06:51:00* Test Item Value Reference Range Interpretation Comme nts APPEARANCE (test code = 6762751589) Clear Clear COLOR (test code = 5414930170) Yellow Yellow PH (test code = 8977077159) 4.8-8.0 SP GRAVITY (test code = 7991745046) 1.003-1.030 GLU U QUAL (test code = 7190078692) Normal Normal BLOOD (test code = 8300408321) Negative Negative KETONES (test code = 6399390924) 20 mg/dL Negative A PROTEIN (test code = 2887-8) Negative Negative UROBILIN (test code = 2489608244) Normal Normal BILIRUBIN (test code = 7181472093) Negative Negative NITRITE (test code = 3263040967) Negative Negative LEUK KENNY (test code = 2409100909) Negative Negative RBC/HPF (test code = 3797242000) See_Comment [Automated [employer] ge] The system which generated this result transmitted reference range: 0 - 3 HPF. The reference range was not used to interpret this result as normal/abnormal. WBC/HPF (test code = 0129700595) See_Comment [Automated [employer] ge] The system which generated this result transmitted reference range: 0 - 5 HPF. The reference range was not used to interpret this result as normal/abnormal. BACTERIA (test code = 4247957927) Negative Negative MUCOUS (test code = 4825536701) Slight Negative LPF A Lab Interpretation (test code = 48351-9) Abnormal [facility] ChildrenTroponin [id number] 06:45:00* Test Item Value Reference Range Interpretation Comme nts TROPONIN I (test code = 6140099298) <0.012 See_Comment [Automated message] The system which [...] biotin. ? Lab Interpretation (test code = 50176-7) Normal [facility] ChildrenETHANOL2020-11-08 06:34:00* Test Item Value Reference Range Interpretation Comme nts ALCOHOL (test code = 2095276406) 14 mg/dL LAURIE (test code = LAURIE) <10 Zytedifm82-126 Toxic>100 Depression of DIRECTOR RETIREMENT>400 Fatalities Reported [facility] ChildrenBasic Metabolic Panel (NA, K, CL, CO2, GLUCOSE, BUN, CREATININE, CA)2020-08-27 06:33:00* Test Item Value Reference Range Interpretation Comme nts NA (test code = 7123443658) 137 mmol/L 135-145 K (test code = 9712998807) 3.6 mmol/L 3.5-5 CL (test code = 7758552467) 102 mmol/L 98-108 CO2 TOTAL (test code = 0376952980) 26 mmol/L 23-31 AGAP (test code = 2139869335) 2-16 BUN (test code = 5262130097) 13 mg/dL 7-23 GLUCOSE (test code = 9242606848) 119 mg/dL 70-110 H CREATININE (test code = 9078588643) 0.86 mg/dL 0.6-1.25 CALCIUM (test code = 8603547716) 9.8 mg/dL 8.6-10.6 eGFR Calculation (Non-) (test code = 1332502203) mL/min/1.73m2 eGFR Calculation () (test code = 6476084233) mL/min/1.73m2 LAURIE (test code = LAURIE) Association [...] imaging tests). Lab Interpretation (test code = 29035-8) Abnormal [facility] ChildrenHepatic Function Panel (ALB, T.PRO, BILI T, BU/BC, ALT, AST, ALK PHOS)2020-08-27 06:33:00* Test Item Value Reference Range Interpretation Comme nts TOTAL BILI (test code = 7650541307) 0.3 mg/dL 0.1-1.1 BILI UNCON (test code = 9768367110) 0.2 mg/dL 0.1-1.1 BILI CONJ (test code = 4472260250) 0.0 mg/dL 0-0.3 T PROTEIN (test code = 5987770011) 7.8 g/dL 6.3-8.2 ALBUMIN (test code = 1854530135) 4.5 g/dL 3.5-5 ALK PHOS (test code = 5822319151) 71 U/L 34-122 ALTv (test code = 1742-6) 26 U/L 5-50 AST(SGOT) (test code = 2948733265) 26 U/L 13-40 Lab Interpretation (test cod e = 28301-1) Normal [facility] ChildrenLipase [id number] 06:33:00* Test Item Value Reference Range Interpretation Comme [facility] LIPASE (test code = 1441947885) 77 U/L 0-220 Lab Interpretation (test cod e = 73009-6) Normal [facility] ChildrenaPTT2020-11-08 06:19:00* Test Item Value Reference Range Interpretation Comme [facility] APTT Patient (test code = 3173-2) See_Comment [Automated message] The system which generated this result transmitted reference range: 23 - 38 Seconds. The reference range was not used to interpret this result as normal/abnormal. LAURIE (test code = LAURIE) The [facility] patient population mean normal value for aPTT is 30 seconds. Lab Interpretation (test code = 57750-9) Normal [facility] ChildrenProthrombin Time (PT) / [id number] 06:17:00 * Test Item Value Reference Range Interpretation Comme [facility] PROTIME PATIENT (test [...] the indications. Lab Interpretation (test code = 67369-4) Normal [facility] ChildrenCBC with [id number] 06:07:00* Test Item Value Reference Range Interpretation [...] 32.8 g/dL 31.2-35 RDW-SD (test code = 64842-7) 42.9 fL 38.5-51.6 RDW-CV (test code = 788-0) 12.7 % 12.1-15.4 PLT (test code = 777-3) See_Comment [Automated [employer] ge] The system which generated this result transmitted reference range: 150 - 328 10*3/?L. The reference range was not used to interpret this result as normal/abnormal. MPV (test code = 38252-3) 9.1 fL 9.8-13 L NRBC/100 WBC (test code = 8078928986) See_Comment [Automated [employer] ssage] The system which generated this result transmitted reference range: 0.0 - 10.0 /100 WBCs. The reference range was not used to interpret this result as normal/abnormal. NRBC x10^3 (test code = 1180829385) <0.01 See_Comment [Automated [employer] ge] The system which generated this result transmitted reference range: 10*3/?L. The reference range was not used to interpret this result as normal/abnormal. GRAN MAT (NEUT) % (test code = 770-8) 52.4 % IMM GRAN % (test code = 9021081526) 0.50 % LYMPH % (test code = 736-9) 37.8 % MONO % (test code = 5905-5) 6.2 % EOS % (test code = 713-8) 2.3 % BASO % (test code = 706-2) 0.8 % GRAN MAT x10^3(ANC) (test code = 5197429331) 4.33 10*3/uL 1.99-6.95 IMM GRAN x10^3 (test code = 7372689309) 0.04 10*3/uL 0-0.06 LYMPH x10^3 (test code = 731-0) 3.13 10*3/uL 1.09-3.23 MONO x10^3 (test code = 742-7) 0.51 10*3/uL 0.36-1.02 EOS x10^3 (test code = 711-2) 0.19 10*3/uL 0.06-0.53 BASO x10^3 (test code = 704-7) 0.07 10*3/uL 0.01-0.09 Lab Interpretation (test code = 49990-4) Abnormal [facility] [id number] 04:41:00* Test Item Value Reference Range Interpretation Comme nts TROPONIN I (test code = 2959744196) 0.000 ng/mL See_Comment [Automated message] The system [...] biotin. ? Lab Interpretation (test code = 12549-8) Normal [facility] / [facility] - DRUG SCREEN [id number] 03:46:00* Test Item Value Reference Range Interpretation Comme nts BENZO U (test code = 5740748341) Negative Negative HORACIO U (test code = 7245373054) Negative Negative AMPHET (test code = 4807252786) Negative Negative THC (test code = 3320928948) Negative Negative METHADONE (test code = 3555914561) Negative Negative Meth U (test code = 1462076176) Negative Negative OPIATES (test code = 6252835351) Presumptive Positive Negative A Cocaine Metabolite (test code = 1906687310) Negative Negative PROPOXY (test code = 8438123052) Negative Negative Tric U (test code = 9985736445) Negative Negative PCP (test code = 1192828453) Negative Negative OXYCOD (test code = 0949860151) Negative Negative LAURIE (test code = LAURIE) [...] legal testing). Lab Interpretation (test code = 38734-9) Abnormal [facility] ChildrenD-[id number] 03:29:00* Test Item Value Reference Range Interpretation Comments D-DIMER (test code = 9817702140) <0.27 See_Comment [Automated message] The system which [...] a diagnosis. Lab Interpretation (test code = 23086-0) Normal [facility] ChildrenLIPASE2020-09-21 02:07:00* Test Item Value Reference Range Interpretation Comme nts LIPASE (test code = 7196588003) 58 U/L 0-220 Lab Interpretation (test cod e = 46078-2) Normal [facility]XR CHEST 1 [id number] 01:44:02No acute cardiopulmonary abnormality. Preliminary Report Dictated [...] this study and agree with theabove report.[facility] TROPONIN [id number] 01:40:00* Test Item Value Reference Range Interpretation Comme [facility] TROPONIN I (test code = 8532339799) 0.000 ng/mL See_Comment [Automated message] The system [...] biotin. ? Lab Interpretation (test code = 89361-9) Normal [facility] ChildrenPROTHROMBIN TIME / [id number] 01:39:00* Test Item Value Reference Range Interpretation Comme [facility] PROTIME PATIENT (test code = 5964-2) See_Comment [Automated [employer]] The system which generated this result transmitted reference range: 12.0 - 14.7 Seconds. The reference range was not used to interpret this result as normal/abnormal. INR (test code = 6301-6) Normal INR <1.1; Warfarin Therapeutic range 2.0 to 3.0 or 2.5 to 3.5, depending upon the indications. Lab Interpretation (test code = 85549-3) Normal [facility] ChildrenCOVID-19 (ID NOW RAPID TESTING)2020-07-10 01:36:00* Test Item Value Reference Range Interpretation Comme nts SARS-CoV-2 Rapid ID NOW (test code = 87640-3) Not Detected Not Detected LAURIE (test code = LAURIE) ID NOW COVID-19 As say is an isothermal nucleic acid amplification test intended for the qualitative detection of nucleic acid from SARS-CoV-2 viral RNA in nasopharyngeal (PARTS DATA WRITER) specimens. It is used under Emergency Use [...] clinically indicated. Lab Interpretation (test code = 12594-6) Normal [facility] ChildrenCOM. METABOLIC PANEL (73806)2020-07-10 01:29:00* Test Item Value Reference Range Interpretation Comme nts NA (test code = 7122628436) 136 mmol/L 135-145 K (test code = 1639895694) 3.4 mmol/L 3.5-5 L CL (test code = 6948052381) 98 mmol/L 98-108 CO2 TOTAL (test code = 9648233416) 26 mmol/L 23-31 AGAP (test code = 1164670504) 2-16 BUN (test code = 4201908301) 16 mg/dL 7-23 GLUCOSE (test code = 0444214531) 165 mg/dL 70-110 H CREATININE (test code = 8687833069) 0.94 mg/dL 0.6-1.25 TOTAL BILI (test code = 7734413248) 0.4 mg/dL 0.1-1.1 CALCIUM (test code = 7829296695) 9.7 mg/dL 8.6-10.6 T PROTEIN (test code = 3256449484) 8.2 g/dL 6.3-8.2 ALBUMIN (test code = 0793201110) 4.4 g/dL 3.5-5 ALK PHOS (test code = 4880543677) 77 U/L 34-122 ALTv (test code = 1742-6) 31 U/L 5-50 AST(SGOT) (test code = 8033963916) 26 U/L 13-40 eGFR Calculation (Non-) (test code = 4915401735) mL/min/1.73m2 eGFR Calculation () (test code = 5921625678) mL/min/1.73m2 LAURIE (test code = LAURIE) Association [...] imaging tests). Lab Interpretation (test code = 39375-0) Abnormal [facility] WITH [id number] 01:11:00* Test Item Value Reference Range Interpretation [...] 34.0 g/dL 31.2-35 RDW-SD (test code = 56397-3) 42.6 fL 38.5-51.6 RDW-CV (test code = 788-0) 13.0 % 12.1-15.4 PLT (test code = 777-3) See_Comment [Automated messa ge] The system which generated this result transmitted reference range: 150 - 328 10*3/?L. The reference range was not used to interpret this result as normal/abnormal. MPV (test code = 24386-8) 9.5 fL 9.8-13 L NRBC/100 WBC (test code = 8567503938) See_Comment [Automated [employer] ssage] The system which generated this result transmitted reference range: 0.0 - 10.0 /100 WBCs. The reference range was not used to interpret this result as normal/abnormal. NRBC x10^3 (test code = 3416614758) <0.01 See_Comment [Automated messa ge] The system which generated this result transmitted reference range: 10*3/?L. The reference range was not used to interpret this result as normal/abnormal. GRAN MAT (NEUT) % (test code = 770-8) 65.5 % IMM GRAN % (test code = 7256879085) 0.70 % LYMPH % (test code = 736-9) 26.1 % MONO % (test code = 5905-5) 5.7 % EOS % (test code = 713-8) 1.2 % BASO % (test code = 706-2) 0.8 % GRAN MAT x10^3(ANC) (test code = 1795580565) 6.62 10*3/uL 1.99-6.95 IMM GRAN x10^3 (test code = 5232862399) 0.07 10*3/uL 0-0.06 H LYMPH x10^3 (test code = 731-0) 2.64 10*3/uL 1.09-3.23 MONO x10^3 (test code = 742-7) 0.58 10*3/uL 0.36-1.02 EOS x10^3 (test code = 711-2) 0.12 10*3/uL 0.06-0.53 BASO x10^3 (test code = 704-7) 0.08 10*3/uL 0.01-0.09 Lab Interpretation (test code = 57256-4) Abnormal [facility] Notes Date/Time Note Provider Source 2024-11-13 22:14:01 Patient left before discharge-did not get ordered treatment, med, or DC paperwork. [facility] Babak Garrido RN [facility] 2024-11-13 21:55:35 Attempted to call patient again from lobby-patient is not there. Provider Renita White notified. [facility] 2024-11-13 21:15:00 Went out to lobby -called patient. Patient not in lobby. [facility] 2024-11-13 21:00:00 Went out to lobby to call patient back for earwick placement, meds, and DC-patient not there [facility] 2024-11-13 20:37:39 CC: foreign body in L ear, believes its an insect [employer] Vira Huang RN [facility] 2024-02-04 14:36:04 Pt discharged with diagnosis of generalized abdominal pain and N/V. Printed and verbal instructions reviewed with and given to patient. No new prescriptions given for this visit. Pt verbalized understanding of teaching and recommended follow-up. Denies questions or concerns at this time. Pt ambulatory at discharge. Appears in no apparent distress. No ataxia noted. Iris Ferguson RN [facility] 2024-02-04 13:30:00 Report from Korey LAZO. Belkys Corrigan RN [facility] 2024-02-04 10:46:14 Pt arrived via private car with RLQ abd pain starting 2-3 days ago abd becoming worse Shalini Nair RN [facility] 2023-12-28 04:24:01 Pt given printed and verbal discharge instructions regarding epigastric pain, encouraged smaller meals. Pt verbalized understanding of instructions,pt encouraged to follow up with pcp and or GI Advised to seek medical attention for new/prolonged/worsening of symptoms, Awake, alert oriented, resp reg unlabored, skin w/d, pt leaving in no apparent distress, Cynthia Frank RN [facility] 2023-12-28 03:42:02 Pt reports the GI cocktail did not relieve his discomfort. Pt states he can feel his food coming up his esophagus. Pt is requesting medication for pain. Viar Huang RN [facility] 2023-12-28 03:07:24 Patient ambulatory to ED c/o waking up around 0100 this AM to food feeling like it was coming back up from his stomach to mouth. Patient last ate around 1900 and went to bed around 2200. Patient states having headache, denies N/V/D. Tylenol taken around 1900 for headache. 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 [id number] 50-325-40 MG TABLET Take 1 tablet by [...] for follow-up Allison Sanchez MD Specialty: IM-GASTROENTEROLOGY [facility] [id number] [facility] [id number] Electronically signed by: Chapito Conrteras MD 12/28/234 [facility] 2023-11-06 02:36:40 Pt given printed and [...] in no apparent distress Y Huang [facility] [facility] 2023-11-05 23:47:32 Patient ambulatory to ED c/o abd pain that started yesterday. Patient went to PCP today and patient states no prescriptions were given. 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 Last medication taken was Tylenol tonight. Patient is tearful in triage. Y Graham RN [facility] 2023-11-01 04:18:58 Pt given printed and [...] with steady gait, in no apparent distress [facility] 2023-10-31 23:33:52 Pt arrived c/o RLQ/epigastric abdominal pain, vomiting, and headache. Pain began yesterday. 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 Hartly, nontender Musculoskeletal: General: Normal range of motion. [...] the abdomen or pelvis. RL: 460 AFC: [id number] Lab Results: Lab Results COMP. METABOLIC PANEL ([id number]) - Abnormal Result Value Ref Range NA [...] for Cough for up to 20 doses. [id number]-[id number]-[id number] 50-325-40 MG TABLET Take 1 tablet by [...] by: Jose Francisco Walters MD 11/01/23 0332 [facility] 2023-10-23 02:26:31 Pt given printed and [...] with steady gait, in no apparent distress. [employer] More Zamudio RN [facility] 2023-10-22 23:44:24 CC: Pt reports RLQ abd pain and 2 episodes of vomiting since morning. Pt has BM this morning was normal. 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 Normal appendix. RL: 460 [facility]: [id number] Lab Results: Lab Results COMP. METABOLIC PANEL ([id number]) - Abnormal Result Value Ref Range NA [...] for Cough for up to 20 doses. [id number]-[id number] 50-325-40 MG TABLET Take 1 tablet by [...] for follow-up Omaira Chen MD Specialty: IM-GASTROENTEROLOGY [address] [place] [phone] Electronically signed by: Chapito Contreras MD 10/23/23219 [facility] 2023-07-07 05:55:19 Formatting of this n [...] ambulated to the lobby with steady gait [facility] 2023-07-07 03:54:59 Formatting of this n ote might be different from the original. Pt states that he last night his blood pressure was running high and he has headache. 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 Pt state that he took his enalapril around 2300 last night. [facility] 2023-07-07 03:49:00 Formatting of this n ote is different from the original. 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 METABOLIC PANEL ([id number]) - Abnormal Result Value Ref Range NA [...] Encounter Procedures TROPONIN I COMP. METABOLIC PANEL (68217) LIPASE, SERUM CBC WITH DIFF URINALYSIS Orders Placed This Encounter Medications ketorolac (TORADOL) injection 30 mg metoclopramide HCl (REGLAN) injection 10 mg yvfeymsrdl-ifqwbphnveckq-icqv 50-325-40 mg tablet First Provider Eval: ED [...] Medications: Patient's Medications START taking these medications [id number] 50-325-40 MG TABLET Take 1 tablet by [...] for follow-up Ulises Carter MD Specialty: PN-NEUROLOGY [facility] [address] [place] [id number] Electronically signed by: Chapito Contreras MD 07/07/2353 [facility] 2023-05-25 22:36:27 Formatting of this n [...] in no apparent distress Vira Huang RN [facility] 2023-05-25 17:15:02 Formatting of this n ote might be different from the original. 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 Shalini Nair RN [facility]
[2024-12-11] MEDS ORDERED: HYDROCODONE/APAP 5/325 MG TAB ONE (21:30)
[2024-12-11] MEDS ORDERED: DIAZEPAM 5 MG TABLET ONE (21:30)
--- NOTE | 2024-12-11 22:08 | RAD REPORT ---
EXAMINATION: US LEFT LOWER EXTREMITY VENOUS DOPPLER CLINICAL INDICATION: [facility] MAIN left PAIN Bed Name: 2 Y TECHNIQUE: Complete bilateral duplex sonography of the LEFT lower extremity veins was performed. The examination included compression for vein patency, color Doppler imaging and flow augmentation in response to distal compression of the distal external iliac, common femoral, femoral, popliteal, tibi al, and great and small saphenous veins. COMPARISON: No prior exam. FINDINGS: Duplex sonography testing of the veins of the LEFT lower extremity was performed. Color flow imaging shows all veins to be compressible with [id number] color filling. Pulsatile and phasic flow is present within all lower extremity deep and superficial veins examined. IMPRESSION: No evidence of deep venous thrombosis.
--- NOTE | 2024-12-11 22:27 | RAD REPORT ---
EXAMINATION: CT PELVIS WITHOUT CONTRAST CLINICAL INDICATION: Male, 49 years old.[facility] MAIN Left hip pain Bed Name: 2 TECHNIQUE: CT pelvis was performed, without IV contrast, as per department protocol. Axial, sagittal and coronal reconstructions were obtained. One or more of the following dose reduction techniques were used: Automated exposure control, adjustment of the mA and/or kV according to patient size, and/ or iterative reconstruction. Unless otherwise specified, incidental findings do not require dedicated imaging follow-up. COMPARISON: No prior exam. FINDINGS: The lack of intravenous contrast limits the sensitivity of this exam for evaluation of solid visceral organs, vascular structures, and retroperitoneum. Motion artifact also limits evaluation. MUSCULOSKELETAL: No acute or suspicious osseous abnormality. Right moderate and left mild hip degener ative changes. Up to moderate SI joint degenerative changes bilaterally, with some subchondral sclerosis and vacuum phenomenon within the joint space. Findings are more pronounced on the right. Bi lateral L5 pars defects, with disc bulges at the lower 2 lumbar levels, contributing to mild to moderate degrees of neural foraminal narrowing. URINARY SYSTEM: Urinary bladder is unremarkable. Mild to moderate prostatomegaly. GASTROINTESTINAL TRACT: Included small bowel and large is normal in caliber. No wall thickening or honey wel inflammatory changes. LYMPH NODES: No lymphadenopathy. ABDOMINAL AORTA AND OTHER VESSELS: Normal caliber aorta and IVC. ADDITIONAL FINDINGS: None. IMPRESSION: No acute abnormalities of the bony pelvis. Evaluation limited by lack of IV contrast. Degenerative changes of the hip joints, SI joints, lower lumbar spine as above.
[2024-12-11] MEDS ORDERED: predniSONE 20 MG TAB ONE (22:38)
[2024-12-11] MEDS ORDERED: KETOROLAC 30 MG/ML INJ ONE (22:39)
--- NOTE | 2024-12-11 22:54 | EDPHYS ---
Physician Documentation [facility] Name: Carrington Dumont Age: 49 yrs Sex: Male : 1975 Arrival Date: 12/11/2024 Time: 20:53 Bed 2 Private MD: ED Physician Dylan Laguna HPI: 12/11 21:32 This 49 yrs old Male presents to ER via Ambulatory with complaints of Leg Pain.ms3 21:32 49-year-old male with past medical history of coronary atherosclerosis, hypertension, ms3 hypothyroidism presents to the emergency department for left posterior leg pain. Patient states the pain radiates down the back of his leg. He rates pain 10/10. Patient was seen in the emergency department on November 26 and December 02. Patient has been taking ibuprofen and methocarbamol without relief. Patient states he saw his primary care physician today who instructed him to continue his ibuprofen. Patient states the pain has become worse thus causing him to return to the emergency department. Historical: - Allergies: 21:09 PENICILLINS; lg3 - Home Meds: 21:09 methocarbamol 750 mg oral tablet 2 tabs every 8 hours [Active]; atorvastatin 40 mg oral lg3 tablet 1 tab [Active]; tramadol 50 mg Oral tablet [Active]; - PMHx: 21:09 coronary atherosclerosis; Hypertension; Hypothyroidism; lg3 - PSHx: 21:09 Cholecystectomy; Stented artery; lg3 - Immunization history:: Adult Immunizations up to date. - Infectious Disease History:: Denies. - Social history:: Smoking status: Patient reports the use of cigarette tobacco products, smokes one-half pack cigarettes per day, Patient/guardian denies using alcohol, street drugs. ROS: 21:32 Constitutional: Negative for fever, and chills. Cardiovascular: Negative for chest ms3 pain, and palpitations. Respiratory: Negative for shortness of breath, cough, wheezing, and pleuritic chest pain, Abdomen/GI: Negative for abdominal pain, nausea, vomiting, diarrhea, and constipation, 21:32 MS/extremity: Positive for Left posterior leg pain, Exam: 21:32 Constitutional: This is a well developed, well nourished patient who is awake, alert, ms3 and in no acute distress. Cardiovascular: Regular rate and rhythm with a normal S1 and S2. No gallops, murmurs, or rubs. Normal PMI, no JVD. No pulse deficits. Respiratory: Lungs have equal breath sounds bilaterally, clear to auscultation and percussion. No rales, rhonchi or wheezes noted. No increased work of breathing, no retractions or nasal flaring. Abdomen/GI: Soft, non-tender, with normal bowel sounds. No distension or tympany. No guarding or rebound. No evidence of tenderness throughout. Skin: Warm, dry with normal turgor. Normal color with no rashes, no lesions, and no evidence of cellulitis. 21:32 Musculoskeletal/extremity: Pulses: noted to be 2+ in the left posterior tibial artery and left dorsalis pedis artery, the left foot and left leg Sensation intact. Calves: have equal circumference, are tender, on left, Left posterior thigh tender to palpation, no cords palpable, DP and PT pulses 2+/4. Left foot sensation intact, full range of motion of left lower extremity.. Vital Signs: 21:06 BP 188 / 104; Pulse 97; Resp 16 S; Temp 97.4(TE); Pulse Ox 98% on R/A; Weight 108.86 kg lg3 (R); Height 5 ft. 8 in. (R); Pain 10/10; 22:29 BP 138 / 75; Pulse 89; Resp 18; Pulse Ox 97% ; cp4 23:22 BP 134 / 72; Pulse 85; Resp 18; Pulse Ox 97% ; cp4 21:06 Body Mass Index 36.49 (108.86 kg, 172.72 cm) lg3 21:06 Pain Scale: Adult lg3 MDM: 21:10 Medical Screening Exam initiated ms3 21:15 ED course: Pelvis x-ray from November 26 reviewed with impression of negative fracture ms3 or dislocation. Left hip x-ray from November 26 reviewed showing impression of negative fracture or dislocation. CT lumbar spine from December 02 reviewed shows no acute lumbar spine abnormalities. Neural foraminal narrowing L4-5 and more so at L5-S1. 21:32 Differential diagnosis: closed fracture, contusion, DVT. ms3 22:53 Data reviewed: vital signs, nurses notes, radiologic studies, and as a result, I will ms3 discharge patient. I considered the following discharge prescriptions or medication management in the emergency department Medications were administered in the Emergency Department. See MAR. Counseling: I had a detailed discussion with the patient and/or guardian regarding the historical points, exam findings, and any diagnostic results supporting the discharge/admit diagnosis, radiology results, the need for outpatient follow up, to return to the emergency department if symptoms worsen or persist or if there are any questions or concerns that arise at home. ED course: Left hip evaluation does not reveal erythema overlying joint, no pain with range of motion of the left hip. Discussed negative CT pelvis and DVT ultrasound with patient. Patient to follow-up with Dr. Araya in 2 to 3 days. All questions were answered. Return precautions discussed include worsening symptoms, or any other concerns.. 12/11 21:14 Order name: Pelvis Wo Cont CT; Complete Time: 22:29 ms3 12/11 21:19 Order name: Extremity Venous Uni Ltd US; Complete Time: 22:29 ms3 Administered Medications: 21:33 Drug: HYDROcodone-acetaminophen PO 5 mg-325 mg 1 tabs PO once Route: PO; cp4 23:21 Follow up: Response: No adverse reaction; Pain is decreased cp4 21:33 Drug: Diazepam PO 5 mg PO once Route: PO; cp4 23:21 Follow up: Response: No adverse reaction cp4 22:42 Drug: Ketorolac IM 30 mg IM once Route: IM; Site: left deltoid; cp4 23:21 Follow up: Response: No adverse reaction; Pain is decreased cp4 22:42 Drug: predniSONE PO 60 mg PO once Route: PO; cp4 23:22 Follow up: Response: No adverse reaction cp4 Disposition Summary: 12/11/24 22:53 Discharge Ordered Notes: Location: Home ms3 Condition: Stable ms3 Diagnosis - Pain in left leg ms3 Followup: ms3 - With: Private Physician - When: 2 - 3 days - Reason: Recheck today's complaints Discharge Instructions: - Discharge Summary Sheet ms3 - Musculoskeletal Pain ms3 Forms: - Medication Reconciliation Form ms3 - Antibiotic Education ms3 - Prescription Opioid Use ms3 - Patient Portal Instructions ms3 - Leadership Thank You Letter ms3 Prescriptions: - Prednisone 20 mg Oral Tablet - take 2 tablets ORAL route once daily for 5 days; 10 tablet; Refills: 0, Product ms3 Selection Permitted Signatures: [facility] Jory Mas RN RN lg3 Dylan Laguna DO DO ms3 Evelyn Corrigan cp4 Corrections: (The following items were deleted from the chart) 21: 21:15 Pelvis Wo Cont+CT.RAD.BRZ ordered. EDMS EDMS 21: 21:20 Extremity Venous Uni Ltd+US.RAD.BRZ ordered. EDMS EDMS
--- NOTE | 2024-12-11 22:54 | ER ---
Nurse's Notes [facility] Name: Carrington Dumont Age: 49 yrs Sex: Male : 1975 Arrival Date: 12/11/2024 Time: 20:53 Bed 2 Private MD: Diagnosis: Pain in left leg Presentation: 12/11 21:06 Chief complaint: Patient states: left leg pain X 2 weeks. Coronavirus screen: Client lg3 denies travel out of the [place] in the last 14 days. At this time, the client does not indicate any symptoms associated with coronavirus-19. Ebola Screen: No symptoms or risks identified at this time. Initial Sepsis Screen: Does the patient meet any 2 criteria? No. Patient's initial sepsis screen is negative. Does the patient have a suspected source of infection? No. Patient's initial sepsis screen is negative. Risk Assessment: Do you want to hurt yourself or someone else? Patient reports no desire to harm self or others. Onset of symptoms is unknown. 21:06 Method Of Arrival: Ambulatory 3 21:06 Acuity: DAYANNA 3 lg3 Triage Assessment: 21:09 General: Appears in no apparent distress. uncomfortable, Behavior is calm, cooperative. lg3 Pain: Complains of pain in left leg. EENT: No deficits noted. No signs and/or symptoms were reported regarding the EENT system. Neuro: No deficits noted. Ribeiro Agitation-Sedation Scale (RASS): 0 - Alert and Calm Level of Consciousness is awake, alert, obeys commands, Oriented to person, place, time, situation. Cardiovascular: No deficits noted. Denies chest pain, shortness of breath, Capillary refill < 3 seconds Clubbing of nail beds is absent JVD is absent Patient's skin is warm and dry. Respiratory: No deficits noted. Airway is patent Respiratory effort is even, unlabored, Respiratory pattern is regular, symmetrical. GI: No deficits noted. No signs and/or symptoms were reported involving the gastrointestinal system. : No signs and/or symptoms were reported regarding the genitourinary system. Derm: No deficits noted. No signs and/or symptoms reported regarding the dermatologic system. Skin is intact, is healthy with good turgor, Skin is dry, Skin is normal, Skin temperature is warm. Musculoskeletal: Reports pain in left leg. Historical: - Allergies: 21:09 PENICILLINS; lg3 - Home Meds: 21:09 methocarbamol 750 mg oral tablet 2 tabs every 8 hours [Active]; atorvastatin 40 mg oral lg3 tablet 1 tab [Active]; tramadol 50 mg Oral tablet [Active]; - PMHx: 21:09 coronary atherosclerosis; Hypertension; Hypothyroidism; lg3 - PSHx: 21:09 Cholecystectomy; Stented artery; lg3 - Immunization history:: Adult Immunizations up to date. - Infectious Disease History:: Denies. - Social history:: Smoking status: Patient reports the use of cigarette tobacco products, smokes one-half pack cigarettes per day, Patient/guardian denies using alcohol, street drugs. Screenin:33 [facility] ED Fall Risk Assessment (Adult) History of falling in the last 3 months, cp4 including since admission No falls in past 3 months (0 pts) Confusion or Disorientation No (0 pts) Intoxicated or Sedated No (0 pts) Impaired Gait No (0 pts) Mobility Assist Device Used No (0 pt) Altered Elimination No (0 pt) Score/Fall Risk Level 0 - 2 = Low Risk Oriented to surroundings, Maintained a safe environment, Assessed \T\ reinforced patient's understanding of fall precautions, Hourly rounding (assess needs \T\ fall precautionary measures) done. Abuse screen: Denies threats or abuse. Denies injuries from another. Nutritional screening: No deficits noted. Tuberculosis screening: No symptoms or risk factors identified. Assessment: 21:33 General: Appears in no apparent distress. comfortable, Behavior is calm, cooperative, cp4 appropriate for age. Pain: Complains of pain in left leg Pain does not radiate. Pain currently is 8 out of 10 on a pain scale. Neuro: Level of Consciousness is awake, alert, obeys commands, Oriented to person, place, time, situation. Cardiovascular: Patient's skin is warm and dry. Respiratory: Airway is patent Respiratory effort is even, unlabored. GI: No signs and/or symptoms were reported involving the gastrointestinal system. : No signs and/or symptoms were reported regarding the genitourinary system. EENT: No signs and/or symptoms were reported regarding the EENT system. Derm: No signs and/or symptoms reported regarding the dermatologic system. Musculoskeletal: Reports pain in left leg. Vital Signs: 21:06 BP 188 / 104; Pulse 97; Resp 16 S; Temp 97.4(TE); Pulse Ox 98% on R/A; Weight 108.86 kg lg3 (R); Height 5 ft. 8 in. (R); Pain 10/10; 22:29 BP 138 / 75; Pulse 89; Resp 18; Pulse Ox 97% ; cp4 23:22 BP 134 / 72; Pulse 85; Resp 18; Pulse Ox 97% ; cp4 21:06 Body Mass Index 36.49 (108.86 kg, 172.72 cm) lg3 21:06 Pain Scale: Adult lg3 ED Course: 20:57 Patient arrived in ED. jj6 20:59 Dylan Laguna DO is Attending Physician. ms3 21:09 Triage completed. lg3 21:09 Arm band placed on right wrist. lg3 21:33 Placed in gown. Bed in low position. Call light in reach. Side rails up X 1. cp4 21:33 No provider procedures requiring assistance completed. Patient did not have IV access cp4 during this emergency room visit. 21:52 Extremity Venous Uni Ltd US In Process Unspecified. EDMS 22:[address] In Process Unspecified. EDMS 22:29 Evelyn Corrigan is Primary Nurse. cp4 23:22 Provided Education on: leg pain. cp4 Administered Medications: 21:33 Drug: HYDROcodone-acetaminophen PO 5 mg-325 mg 1 tabs PO once Route: PO; cp4 23:21 Follow up: Response: No adverse reaction; Pain is decreased cp4 21:33 Drug: Diazepam PO 5 mg PO once Route: PO; cp4 23:21 Follow up: Response: No adverse reaction cp4 22:42 Drug: Ketorolac IM 30 mg IM once Route: IM; Site: left deltoid; cp4 23:21 Follow up: Response: No adverse reaction; Pain is decreased cp4 22:42 Drug: predniSONE PO 60 mg PO once Route: PO; cp4 23:22 Follow up: Response: No adverse reaction cp4 Medication: 21:33 VIS not applicable for this client. cp4 Outcome: 22:53 Discharge ordered by . ms3 23:22 Discharged to home ambulatory, cp4 23:22 Condition: stable 23:22 Discharge instructions given to patient, Instructed on discharge instructions, follow up and referral plans. medication usage, Demonstrated understanding of instructions, follow-up care, medications, Prescriptions given X 1, 23:25 Patient left the ED. cp4 Signatures: Dispatcher [employer] EDMS Jory Mello RN RN lg3 Dylan Laguan DO DO ms3 Gayla Fernándezj6 Evelyn Corrigan cp4
[2024-12-11 23:31] VITALS: TEMP 97.4
[2024-12-11 23:32] VITALS: O2SAT 97
[2024-12-11 23:34] VITALS: BP 134/72
== END 2024-12-11 23:25 | disposition home or self-care (01) ==
LOC: ER 20:53
DX: M79.605 Pain in left leg (principal); I10 Essential (primary) hypertension; E03.9 Hypothyroidism, unspecified; F17.210 Nicotine dependence, cigarettes, uncomplicated
CPT/HCPCS: 72192; 93971; 96372; 99284; J7512

== ENCOUNTER 2025-07-27 22:56 | Observation (INO) | payer SELFPAY ==
--- OUTSIDE RECORDS SUMMARY | 2025-07-27 23:19 | XMS REPORT | Continuity of Care Document ---
Author Name Unknown Address [address] [facility] [place] [address] [facility] Address [address] [place] [address] Care Team Providers Care Tubing Oiler Name Role Phone MARTA BARAJAS Primary Care Physician Unavailable NYLA HANDY Attending Clinician Unavailable MORRIS DAO Attending Clinician Jaki vailable HAKEEM GRANT Attending Clinician Un available Hakeem Grant MD Attending Clinician [phone] Amanda Vogt MD Attending Clinician Unavailab Demarco Kincaid MD Attending Clinician [phone] Theresa Freeman DO Attending Clinician [phone] Morris Dao MD Attending Clinician Jaki vailable Nyla Handy MD Attending Clinician [phone] AMANDA VOGT Attending Clinician UnaDEMARCO Weathers Attending Clinician Unavailab THERESA Steven Attending Clinician Unavailable Ara Hurt Attending Clinician Unavailable Jack Frias MD Attending Clinician [phone] Johann Cardona CRNA Attending Clinician [phone] Virtual, Surgeon Attending Clinician Unavailable Doctor Unassigned, [place] Attending Clinician U Trevon Poe MD Attending Clinician [phone] RUTH WILKES Attending C linician Unavailable Carisa Franks MD Attending Clinician [phone] ELSA WHITE Attending Clinician Unavailable ELSA WHITE Attending Clinician Unavailable Elsa White NP Attending Clinician [phone] Doctor Unassigned, [place] Attending Clinician U BABS Cohen Attending Clinician Unavailable CHAPITO CONTRERAS Attending Clinician Unavailable CHAPITO CONTRERAS Attending Clinician Unavailable Nidia SOSA Attending Clinician Unavailable Nidia SOSA Attending Clinician Unavailable JOSE FRANCISCO WALTERS Attending Clinician Unavailable Jose Francisco Walters MD Attending Clinician [phone] LOREN TAM Attending Clinician Unavailable LOREN TAM Attending Clinician Unavailable Loren Tam DO Attending Clinician [phone] Patrick Garrett Attending Clinician [phone] PATRICK STEINER Attending Clinician Unavailable SOFIA PADILLA Attending Clinician Unavailable SOFIA PADILLA Attending Clinician Unavailable MARIE MORALES Attending Clinician UnavailMarie Andrews DO Attending Clinician [phone] SAQIB GARY Attending Clinician Unavailable Saqib Gary DO Attending Clinician [phone] BENJAMIN ASHFORD Attending Clinician Unavailable Benjamin Ashford MD Attending Clinician [phone] Geoff Leyva MD Attending Clinician [phone] GEOFF LEYVA Attending Clinician Unavailable Kiki Mathur MD Attending Clinician [phone] KIKI MATHUR Attending Clinician UnavailGricelda Sherman MD Attending Clinician [phone] MARIBELL CEDILLO Attending Clinician UnavailHAKEEM Horner Admitting Clinician Un available STEPHANIE EMERALDAnastacio MATAMY TREVOR DOVE Admitting C linician Unavailable BABS BUSTAMANTE Admitting Clinician Unavailable JOSE FRANCISCO WALTERS Admitting Clinician Unavailable CHAPITO CONTRERAS Admitting Clinician Unavailable LOREN TAM Admitting Clinician Unavailable PATRICK STEINER Admitting Clinician Unavailable Nidia SOSA Admitting Clinician Unavailable MARIE MORALES Admitting Clinician UnavailGricelda Morales MD Admitting Clinician [phone] EMERGENCY ROOM, EMERGENCY Admitting Clinician Un available Payers Payer Name Policy Type Policy Number Effective Date Expirati on Date Source [facility] [id number] 2023 00:00:00 Problems Condition Name Condition Details Condition Category Status Onset Date Resolution Date Last Treatment Date Treating Clinician Comments Source Acute ischemic stroke Acute ischemic stroke Disease [facility] 05-14 00:00: 00 [facility] CAD (coronary artery disease) CAD (coronary artery disease) Disease [facility] 05-14 00:00: 00 [facility] Hypothyroi dism Hypothyroi dism Disease [facility] 05-14 00:00: 00 [facility] Tobacco use Tobacco use Disease [facility] 05-14 00:00: 00 [facility] HTN (hypertens ion) HTN (hypertens ion) Disease [facility] 05-14 00:00: 00 [facility] Chest pain, unspecifie d type Chest pain, unspecifie d type Disease Active 03-28 00:00: 00 [facility] Coronary artery disease involving [place] coronary artery of [place] heart with angina pectoris Coronary artery disease involving [place] coronary artery of [place] heart with angina pectoris Disease Active 03-28 00:00: 00 [facility] Obesity (BMI 30-39.9) Obesity (BMI 30-39.9) Disease Active 05-08 00:00: 00 [facility] Cigarette nicotine dependence without complicati on Cigarette nicotine dependence without complicati on Disease Active 2019-10 00:00: 00 [facility] Cigarette nicotine dependence without complicati on Cigarette nicotine dependence without complicati on Disease Active 2019-10 00:00: 00 [facility] Atypical chest pain Atypical chest pain Disease Active 2019-10 00:00: 00 [facility] Essential hypertensi on Essential hypertensi on Disease Active 2019-10 00:00: 00 [facility] No known active problems No known active problems Disease [facility] Allergies, Adverse Reactions, Alerts Allergy Name Allergy Type Status Severity Reaction(s) Onset Date Inactive Date Treating Clinician Comments Source Morphine Propensi ty to adverse reaction s Active Hives 05-15 00:00: 00 [facility] MORPHINE Allergy Active High Hives 0 05-15 00:00: 00 [facility] Penicill in Drug Allergy Active Rash 05-14 00:00: 00 [facility] PENICILL IN Allergy Active High Rash 05-14 00:00: 00 [facility] PENICILL ANIC SULFONE BL BETA-LAC TAMASE INHIBITO RS Allergy Active High Rash 05-14 00:00: 00 [facility] Penicill in Propensi ty to adverse reaction s Active Shortness of Breath 03-30 00:00: 00 Confirmed with patient that he does an allergy to it [facility] PENICILL IN DRUG INGREDI Active High SOB 03-30 00:00: 00 [facility] NO KNOWN ALLERGIE S Allergy Active [facility] NO KNOWN ALLERGIE S Drug Class Active [facility] Social History Social Habit Start Date Stop Date Quantity Comments Source Sexual orientation 2025-07-14 09:36:07 Heterosexual (finding) [facility] History SDOH Alcohol Frequency [facility] History SDOH Alcohol Std Drinks [facility] History SDOH Alcohol Binge [facility] Gender identity [facility] History of tobacco use Cigarette Smoker [facility] Cigarettes smoked current (pack per day) - Reported 2025-05-14 00:00:00 2025-05-14 00:00:00 [facility] Cigarette pack-years 2025-05-14 00:00:00 2025-05-14 00:00:00 [facility] Alcoholic beverage intake 2025-05-14 00:00:00 2025-05-14 00:00:00 Ex-drinker (finding) [facility] History of Social function 2025-05-14 00:00:00 2025-05-14 00:00:00 [facility] Tobacco use and exposure 2025-03-28 00:00:00 2025-03-28 00:00:00 Smokeless tobacco non-user [facility] Alcohol intake 2024-02-04 00:00:00 2024-02-04 00:00:00 Current drinker of alcohol (finding) [facility] Exposure to SARS-CoV-2 (event) 2023-02-10 00:00:00 2023-02-20 18:06:00 Not sure [facility] Alcohol Comment 2021-05-08 00:00:00 2021-05-08 00:00:00 6beers on the weekend [facility] Sex 2014-02-23 08:54:50 2014-02-23 08:54:50 Male (finding) [facility] Sex assigned at 1975 00:00:00 1975 00:00:00 [facility] Smoking Status Start Date Stop Date Source Smokes tobacco daily 2025-05-14 00:00:00 [facility] Never smoker [facility] Unknown if ever smoked [facility] Medications Ordered Medication Name Filled Medication Name Start Date Stop Date Current Medication? Ordering Clinician Indication Dosage Frequency Signature (SIG) Comments Components Source gabapentin (NEURONTIN) 100 MG capsule 8- 00:00: 00 05-30 23:59 :00 Yes 200mg Q.5D Take 2 capsules (200 mg total) by mouth 2 (two) times daily. [facility] amLODIPine (NORVASC) 10 MG tablet 7- 00:00: 00 08-15 23:59 :00 Yes 10mg QD Take 1 tablet (10 mg total) by mouth daily for 90 days. [facility] aspirin 81 MG chewable tablet 05-17 00:00: 00 08-15 23:59 :00 Yes 81mg QD Take 1 tablet (81 mg total) by mouth daily for 90 days. [facility] atorvastati n (LIPITOR) 40 MG tablet 05-17 00:00: 00 08-15 23:59 :00 Yes 40mg QD Take 1 tablet (40 mg total) by mouth nightly for 90 days. [facility] levothyroxi ne (SYNTHROID) 25 MCG tablet 05-17 00:00: 00 08-15 23:59 :00 Yes 12.5ug Take 0.5 tablets (12.5 mcg total) by mouth Daily (0600) for 90 days. [facility] metFORMIN (GLUCOPHAGE ) 500 MG tablet 05-17 00:00: 00 08-15 23:59 :00 Yes 500mg Take 1 tablet (500 mg total) by mouth daily with breakfast for 90 days Look-ali ke/Sound-a like medication . [facility] clopidogreL (PLAVIX) 75 mg tablet 05-17 00:00: 00 05-30 00:00 :00 No 75mg QD Take 1 tablet (75 mg total) by mouth daily for 90 days Look-ali ke/Sound-a like medication . [facility] carboxymeth ylcellulose (REFRESH) 1 % dpge 05-17 00:00: 00 05-27 23:59 :00 No 1[drp] [id number] 3D Administer 1 drop into the right eye 3 (three) times daily for 10 days. [facility] atorvastati n (LIPITOR) tablet 80 mg 03-30 21:45: 00 03-30 23:01 :19 No 80mg 80 mg, Oral, DAILY, First dose (after last modificati on) on Fri03/30/25 at 1645, Until Discontinu ed, Routine [facility] aspirin 81 mg tablet 03-30 18:01: 14 03-30 00:00 :00 No 81mg Take 1 tablet by mouth daily. [facility] NaCl 0.9% (NS) bolus infusion 03-30 17:35: 39 03-30 18:03 :56 No CONTINUOUS PRN, Starting on Fri03/30/25 at 1235, Until Fri03/30/25 at 1303, Routine, CV Intraproce dure [facility] heparin 1,000 unit/mL injection 03-30 17:33: 40 03-30 18:03 :58 No ONCE INTRA PROCEDURE, Starting on Fri03/30/25 at 1233, Until Fri03/30/25 at 1303, Routine, CV Intraproce dure [facility] fentanyl PF (SUBLIMAZE (PF)) injection 03-30 17:29: 08 03-30 18:03 :58 No ONCE INTRA PROCEDURE, Starting on Fri03/30/25 at 1229, Until Fri03/30/25 at 1303, Routine, CV Intraproce dure [facility] midazolam (VERSED) 1 mg/mL injection 03-30 17:28: 55 03-30 18:03 :58 No ONCE INTRA PROCEDURE, Starting on Fri03/30/25 at 1228, Until Fri03/30/25 at 1303, Routine, CV Intraproce dure [facility] aspirin tablet 325 mg 03-30 14:26: 07 03-30 23:01 :19 No 325mg 325 mg, Oral, PRE-PROCED URE ONCE, 1 dose, Starting on Fri03/30/25 at 0926, Until Fri03/30/25 at 1801, Routine, Surgery/Pr ocedure, CV Preprocedu re [facility] clopidogreL (PLAVIX) 75 mg tablet 75 mg clopidogreL (PLAVIX) 75 mg tablet 75 mg 03-30 03:00: 00 03-30 23:01 :19 No 75mg 75 mg, Oral, DAILY, First dose on Fri03/29/25 at 2200, Until Discontinu ed, Routine [facility] acetaminoph en (TYLENOL) tablet 650 mg 03-30 01:46: 07 03-30 23:01 :19 No 650mg 650 mg, Oral, Q6HPRN, Starting on Fri03/29/25 at 2046, Until Fri03/30/25 at 1801, Routine, Pain (scale 1-3) [facility] aspirin 81 mg tablet aspirin 81 mg tablet 03-30 00:00: 00 03-30 00:00 :00 No [id number] 81mg Take 1 tablet by mouth daily. [facility] clopidogreL 75 mg tablet clopidogreL 75 mg tablet 03-30 00:00: 00 03-30 00:00 :00 No [id number] 75mg Take 1 tablet by mouth daily. [facility] lisinopriL 40 mg tablet lisinopriL 40 mg tablet 03-30 00:00: 00 03-30 00:00 :00 No [id number] 40mg Take 1 tablet by mouth daily. [facility] atorvastati n 80 mg tablet atorvastati n 80 mg tablet 03-30 00:00: 00 03-30 00:00 :00 No [id number] 80mg Take 1 tablet by mouth at bedtime. [facility] carvediloL 6.25 mg tablet carvediloL 6.25 mg tablet 03-30 00:00: 00 03-30 00:00 :00 No [id number] 6.25mg Take 1 tablet by mouth 2 times daily with meals. [facility] isosorbide mononitrate 30 mg 24 hr tablet isosorbide mononitrate 30 mg 24 hr tablet 03-30 00:00: 00 03-30 00:00 :00 No [id number] 30mg Take 1 tablet by mouth daily. [facility] carvediloL (COREG) tablet 6.25 mg carvediloL (COREG) tablet 6.25 mg 03-29 23:00: 00 03-31 01:01 :19 No 6.25mg 6.25 mg, Oral, BID MEALS, First dose (after last modificati on) on Fri03/29/25 at 1800, Until Discontinu ed, [facility]ine [facility] chew[facility] 81 mg aspirin chewable tablet 81 mg 03-29 14:00: 00 03-30 23:01 :19 No 81mg 81 mg, Oral, DAILY, First dose on Fri03/29/25 at 0900, Until Discontinu ed, Routine [facility] carvediloL (COREG) tablet 6.25 mg carvediloL (COREG) tablet 6.25 mg 03-29 13:00: 00 03-29 14:00 :30 No 6.25mg 6.25 mg, Oral, BID MEALS, First dose on Fri03/29/25 at 0800, Until Discontinu ed, Routine [facility] ALPRAZolam (XANAX) tablet 0.5 mg ALPRAZolam (XANAX) tablet 0.5 mg 03-29 12:00: 00 03-29 11:14 :00 No .5mg 0.5 mg, Oral, ONCE, 1 dose, On Fri03/29/25 at 0700, Routine [facility] lisinopriL (PRINIVIL,Z ESTRIL) tablet 40 mg lisinopriL (PRINIVIL,Z ESTRIL) tablet 40 mg 03-29 11:15: 00 03-30 23:01 :19 No 40mg 40 mg, Oral, DAILY, First dose (after last modificati on) on Fri03/29/25 at 0615, Until Discontinu ed [facility] levothyroxi ne (SYNTHROID) tablet 75 mcg levothyroxi ne (SYNTHROID) tablet 75 mcg 03-29 11:00: 00 03-30 23:01 :19 No 75ug 75 mcg, Oral, QAM-0600, First dose on Fri03/29/25 at 0600, Until Discontinu ed [facility] hydralAZINE (APRESOLINE ) injection 10 mg hydralAZINE (APRESOLINE ) injection 10 mg 03-29 09:32: 37 03-30 02:53 :55 No 10mg 10 mg, Slow IV Push, Q4HPRN, Starting on Fri03/29/25 at 0432, Until Fri03/29/25 at 2153, Routine, DBP=>100; SBP=>160 [facility] nicotine (NICODERM) 14 mg/24 hr patch 1 Patch nicotine (NICODERM) 14 mg/24 hr patch 1 Patch 03-29 02:45: 00 03-30 23:01 :19 No 1{patch } 1 Patch, Transderma l (Apply To Skin), Administer over 24 Hours, Q24H, First dose on Fri03/28/25 at 2145, Until Discontinu ed, Routine [facility] atorvastati n (LIPITOR) tablet 40 mg atorvastati n (LIPITOR) tablet 40 mg 03-29 02:00: 00 03-30 14:16 :12 No 40mg 40 mg, Oral, QHS, First dose on Fri03/28/25 at 2100, Until Discontinu ed, Routine [facility] nitroglycer in (NITROSTAT) sublingual tablet 0.4 mg 03-29 00:40: 58 03-30 23:01 :19 No .4mg 0.4 mg, Sublingual , Q5MIN PRN, Starting on Fri03/28/25 at 1940, Until Fri03/30/25 at 1801, Routine, Chest pain [facility] enoxaparin (LOVENOX) injection 40 mg enoxaparin (LOVENOX) injection 40 mg 03-28 22:00: 00 03-30 23:01 :19 No 40mg 40 mg, Subcutaneo us, DAILY AT 1700, First dose on Fri03/28/25 at 1700, Until Discontinu ed, Routine [facility] Sliding Scale Insulin - Lispro (HumaLOG) 03-28 17:00: 00 03-30 23:01 :19 No Subcutaneo us, TID MEALS+HS, First dose on Fri03/28/25 at 1200, Until Discontinu ed, Routine [facility] morpHINE (4 mg/mL) injection 4 mg morpHINE (4 mg/mL) injection 4 mg 03-28 16:55: 16 03-30 02:53 :55 No 4mg 4 mg, Slow IV Push, Q4HPRN, Starting on Fri03/28/25 at 1155, Until Fri03/29/25 at 2153, Routine, Pain (scale 7-10) [facility] HYDROcodone -acetaminop hen (NORCO 5) tablet 1 tablet HYDROcodone -acetaminop hen (NORCO 5) tablet 1 tablet 03-28 16:55: 04 03-30 23:01 :19 No 1{tbl} 1 tablet, Oral, Q6HPRN, Starting on Fri03/28/25 at 1155, Until Fri03/30/25 at 1801, Routine, Pain (scale 4-6) [facility] glucagon HCL injection 1 mg 03-28 14:04: 56 03-30 23:01 :19 No 1mg 1 mg, Intramuscu lar, PRN, Starting on Fri03/28/25 at 0904, Until Fri03/30/25 at 1801, FAWN, Low blood sugar, Blood Glucose < or = 70 mg/dL and patient is NPO, unable to swallow or has mental changes. [facility] dextrose 50 % in water (D50W) injection 25 mL 03-28 14:04: 56 03-30 23:01 :19 No 25mL 25 mL, Slow IV Push, PRN, Starting on Fri03/28/25 at 0904, Until Fri03/30/25 at 1801, FAWN, Blood Glucose < or = 70 mg/dL and patient is NPO, unable to swallow or has mental status changes. [facility] ondansetron (ZOFRAN (PF)) injection 4 mg 03-28 13:15: 00 03-28 13:46 :00 No 4mg 4 mg, Slow IV Push, ONCE, 1 dose, On Fri03/28/25 at 0815, Administer over 2-5 Minutes, 2 mL [facility] morpHINE (4 mg/mL) injection 4 mg 03-28 13:15: 00 03-28 13:44 :00 No 4mg 4 mg, Slow IV Push, ONCE, 1 dose, On Fri03/28/25 at 0815, STAT [facility] nitroglycer in (NITROSTAT) sublingual tablet 0.4 mg 03-28 12:30: 00 03-28 12:32 :00 No .4mg 0.4 mg, Sublingual , ONCE, 1 dose, On Fri03/28/25 at 0730, FAWN [facility] amoxicillin 500 mg tablet 11-13 00:00: 00 11-24 05:59 :00 No [id number] 500mg Take 1 tablet by mouth 3 (three) times daily for 10 days. [facility] iopamidol (ISOVUE 370-500 mL) injection 85 mL 02-03 18:00: 00 02-03 18:00 :00 No [id number] 85mL 85 mL, Intravenou s, ONCE, 1 dose, On Fri02/04/24 at 1300, Routine [facility] morpHINE (2 mg/mL) injection 2 mg 02-03 17:45: 00 02-03 18:48 :00 No 2mg 2 mg, Slow IV Push, ONCE, 1 dose, On Fri02/04/24 at 1245, STAT [facility] ondansetron (ZOFRAN (PF)) injection 4 mg 02-03 16:30: 00 02-03 17:15 :00 No 4mg 4 mg, Slow IV Push, ONCE, 1 dose, On Fri02/04/24 at 1130, FAWN [facility] ketorolac (TORADOL) injection 15 mg 02-03 16:30: 00 02-03 17:16 :00 No 15mg 15 mg, Slow IV Push, ONCE, 1 dose, On Fri02/04/24 at 1130, FAWN [facility] sodium chloride (NS) injection 5 mL 02-03 15:28: 49 Yes 5mL 5 mL, Intravenou s, PRN, Starting on Fri02/04/24 at 1028, Until Discontinu ed, Routine, IV line flushing [facility] dicyclomine (BENTYL) injection 20 mg 12-27 09:15: 00 Yes 20mg 20 mg, Intramuscu lar, QID, First dose on Fri12/28/23 at 0415, Until Discontinu ed, Routine [facility] maalox:diph enhydrAMINE :lidocaine 2 % viscous 1:1:1 (FIRST-MOUT HWASH BLM) oral suspension 15 mL 12-27 08:30: 00 12-27 08:27 :00 No 15mL 15 mL, Oral, ONCE, 1 dose, On Fri12/28/23 at 0330, Routine [facility] maalox:diph enhydrAMINE :lidocaine 2 % viscous 1:1:1 (FIRST-MOUT HWASH BLM) oral suspension 15 mL 11-06 07:15: 00 11-06 07:38 :00 No 15mL 15 mL, Oral, ONCE, 1 dose, On Fri11/06/23 at 0115, Routine [facility] famotidine (PEPCID (PF)) injection 20 mg 11-06 07:15: 00 11-06 07:38 :00 No 20mg 20 mg, Slow IV Push, ONCE, 1 dose, On Fri11/06/23 at 0115, FAWN [facility] NaCl 0.9% (NS) bolus infusion 1,000 mL 11-06 07:15: 00 11-06 07:38 :00 No 1000mL at 999 mL/hr, 1,000 mL, IV Infusion, ONCE, 1 dose, On Fri11/06/23 at 0115, STAT [facility] ondansetron (ZOFRAN (PF)) injection 4 mg 11-06 07:15: 00 11-06 06:19 :00 No 4mg 4 mg, Slow IV Push, ONCE, 1 dose, On Ale 11/06/23 at 0115, FAWN [facility] dicyclomine (BENTYL) injection 20 mg 11-06 07:00: 00 11-06 07:00 :00 No 20mg 20 mg, Intramuscu lar, ONCE, 1 dose, On Ale 11/06/23 at 0100, Routine [facility] dicyclomine 20 mg tablet 11-06 00:00: 00 03-28 00:00 :00 No 20mg Take 1 tablet by mouth 4 (four) times daily. Indication s: abdominal pain [facility] famotidine (PEPCID) 40 mg tablet 11-06 00:00: 00 03-28 00:00 :00 No [id number] 40mg Take 1 tablet by mouth daily. [facility] acetaminoph en (TYLENOL) tablet 650 mg 11-01 09:30: 00 11-01 09:30 :00 No 650mg 650 mg, Oral, ONCE, 1 dose, On 11/01/23 at 0330, FAWN [facility] iopamidol (ISOVUE 370-500 mL) injection 100 mL 11-01 09:30: 00 11-01 09:30 :00 No [id number] 100mL 100 mL, Intravenou s, ONCE, 1 dose, On 11/01/23 at 0330, Routine [facility] morpHINE (4 mg/mL) injection 4 mg 11-01 07:00: 00 11-01 06:56 :00 No 4mg 4 mg, Slow IV Push, ONCE, 1 dose, On 11/01/23 at 0100, STAT [facility] ketorolac (TORADOL) injection 30 mg 11-01 06:45: 00 11-01 06:00 :00 No 30mg 30 mg, Slow IV Push, ONCE, 1 dose, On 11/01/23 at 0045, FAWN [facility] NaCl 0.9% (NS) bolus infusion 1,000 mL 11-01 06:45: 00 11-01 07:59 :00 No 1000mL at 999 mL/hr, 1,000 mL, IV Piggyback, ONCE, 1 dose, On 11/01/23 at 0045, STAT [facility] ondansetron (ZOFRAN (PF)) injection 4 mg 11-01 06:00: 00 11-01 05:59 :00 No 4mg 4 mg, Slow IV Push, ONCE, 1 dose, On 11/01/23 at 0000, FAWN [facility] morpHINE (4 mg/mL) injection 4 mg 11-01 06:00: 00 11-01 06:00 :00 No 4mg 4 mg, Slow IV Push, ONCE, 1 dose, On 11/01/23 at 0000, STAT [facility] famotidine (PEPCID) 20 mg tablet 11-01 00:00: 00 03-28 00:00 :00 No [id number] 20mg Take 1 tablet by mouth 2 (two) times daily. [facility] dicyclomine 20 mg tablet 11-01 00:00: 00 03-28 00:00 :00 No [id number] 20mg Take 1 tablet by mouth 3 (three) times daily as needed for Abdominal pain. [facility] iopamidol (ISOVUE 370-500 mL) injection 100 mL 10-23 08:00: 00 10-23 08:00 :00 No [id number] 100mL 100 mL, Intravenou s, ONCE, 1 dose, On Ale 10/23/23 at 0200, Routine [facility] FENTanyl PF (SUBLIMAZE (PF)) injection 50 mcg 10-23 08:00: 00 10-23 07:01 :00 No 50ug 50 mcg, Slow IV Push, ONCE, 1 dose, On Ale 10/23/23 at 0200, Routine [facility] ketorolac (TORADOL) injection 30 mg 10-23 07:15: 10-23 06:08 :00 No 30mg 30 mg, Slow IV Push, ONCE, 1 dose, On Fri10/23/23 at 0115, Routine [facility] ondansetron (ZOFRAN (PF)) injection 4 mg 10-23 06:15: 00 10-23 06:08 :00 No 4mg 4 mg, Slow IV Push, ONCE, 1 dose, On Fri10/23/23 at 0015, FAWN [facility] ketorolac 10 mg tablet 10-23 00:00: 00 03-28 00:00 :00 No [id number] 10mg Take 1 tablet by mouth every 6 (six) hours as needed for Pain (scale 7-10). [facility] iopamidol (ISOVUE 370-500 mL) injection 100 mL 2022-10 07:15: 00 09-26 07:15 :00 No [id number] 100mL 100 mL, Intravenou s, ONCE, 1 dose, On Fri09/26/23 at 0115, Routine [facility] ketorolac (TORADOL) injection 30 mg 2022-10 07:00: 00 09-26 06:12 :00 No 30mg 30 mg, Slow IV Push, ONCE, 1 dose, On Fri09/26/23 at 0100, Routine [facility] NaCl 0.9% (NS) bolus infusion 1,000 mL 2022-10 06:00: 00 09-26 06:15 :00 No 1000mL at 999 mL/hr, 1,000 mL, IV Infusion, ONCE, 1 dose, On Fri09/26/23 at 0000, FAWN [facility] [facility] mor[facility] (4 mg/mL) injection 4 mg 2022-10 05:30: 00 09-26 05:19 :00 No 4mg 4 mg, Slow IV Push, ONCE, 1 dose, On Fri09/25/23 at 2330, STAT [facility] lactulose (CEPHULAC) solution 60 mL 2022-10 05:15: 09-26 05:13 :00 No 60mL 60 mL, Oral, ONCE, 1 dose, On Ale 09/25/23 at 2315, FAWN [facility] ondansetron (ZOFRAN (PF)) injection 4 mg 2022-10 05:15: 00 09-26 05:13 :00 No 4mg 4 mg, Slow IV Push, ONCE, 1 dose, On Ale 09/25/23 at 2315, FAWN [facility] SEMAGLUTIDE , WEIGHT LOSS, SC 2022-10 02:30: 30 Yes inject under the skin. [facility] levothyroxi ne sodium (SYNTHROID ORAL) 2022-10 02:30: 30 03-30 00:00 :00 No Take by mouth daily. [facility] iopamidol (ISOVUE 370-500 mL) injection 75 mL 2022-10 09:00: 00 08-24 09:00 :00 No [id number] 75mL 75 mL, Intravenou s, ONCE, 1 dose, On 08/24/23 at 0300, Routine [facility] ondansetron (ZOFRAN (PF)) injection 4 mg 2022-10 06:30: 00 08-24 08:15 :00 No 4mg 4 mg, Slow IV Push, ONCE, 1 dose, On 08/24/23 at 0130, FAWN [facility] morpHINE (4 mg/mL) injection 4 mg 2022-10 06:30: 00 08-24 08:14 :00 No 4mg 4 mg, Slow IV Push, ONCE, 1 dose, On 08/24/23 at 0130, STAT [facility] aspirin tablet 325 mg 2022-10 05:15: 00 08-24 05:18 :00 No 325mg 325 mg, Oral, ONCE, 1 dose, On 08/24/23 at 0015, STAT [facility] ketorolac (TORADOL) injection 30 mg 07-07 10:45: 00 07-07 09:53 :00 No 30mg 30 mg, Slow IV Push, ONCE, 1 dose, On Fri07/07/23 at 0545, Routine [facility] metoclopram glenroy HCl (REGLAN) injection 10 mg 07-07 09:45: 00 07-07 09:54 :00 No 10mg 10 mg, Slow IV Push, ONCE, 1 dose, On Fri07/07/23 at 0445, FAWN [facility] butalbital- acetaminoph en-caff 50-325-40 mg tablet 07-07 00:00: 00 03-28 00:00 :00 No [id number] 1{tbl} Take 1 tablet by mouth every 6 (six) hours as needed (Headache) . [facility] metFORMIN (GLUCOPHAGE ) tablet 500 mg 05-26 13:00: 00 Yes 500mg 500 mg, Oral, BID MEALS, First dose on Fri05/26/23 at 0800, Until Discontinu ed, Routine [facility] ketorolac (TORADOL) injection 15 mg 05-26 03:00: 00 05-26 02:19 :00 No 15mg 15 mg, Slow IV Push, ONCE, 1 dose, On Fri05/25/23 at 2200, [facility] nitroglycer in (NITROL) 2 % ointment 0.5 Inch 05-25 23:30: 00 05-26 01:27 :00 No .5[in_u s] 0.5 Inch, Transderma l (Apply To Skin), ONCE, 1 dose, On Fri05/25/23 at 1830, [facility] maalox:diph enhydrAMINE :lidocaine 2 % viscous 1:1:1 (FIRST-MOUT [facility]ASH BLM) oral suspension 15 mL 05-25 23:30: 00 05-26 00:49 :00 No 15mL 15 mL, Oral (Swish & Swallow), ONCE, 1 dose, On Fri05/25/23 at 1830, Routine [facility] aspirin chewable tablet 324 mg 05-25 23:30: 00 05-25 22:24 :00 No 324mg 324 mg, Oral, ONCE, 1 dose, On [place] 05/25/23 at 1830, Routine [facility] metFORMIN 500 mg tablet 05-25 00:00: 00 03-28 00:00 :00 No [id number] 500mg Take 1 tablet by mouth 2 (two) times daily. [facility] naproxen (NAPROSYN) 500 mg tablet 05-25 00:00: 00 02-03 00:00 :00 No [id number] 500mg Take 1 tablet by mouth 2 (two) times daily with meals. [facility] cloNIDine (CATAPRES) tablet 0.2 mg 02-21 00:45: 00 02-21 01:50 :00 No .2mg 0.2 mg, Oral, ONCE, 1 dose, On [facility] 02/20/23 at 1945, FAWN [facility] ibuprofen (IBU) tablet 600 mg 02-20 23:30: 00 02-20 23:30 :00 No 600mg 600 mg, Oral, ONCE, 1 dose, On [facility] 02/20/23 at 1830, FAWN [facility] ibuprofen 600 mg tablet 02-20 00:00: 00 02-03 00:00 :00 No [id number] 600mg Take 1 tablet by mouth every 6 (six) hours as needed for Pain (scale 4-6) for up to 30 doses. [facility] iopamidol (ISOVUE 370-500 mL) injection 100 mL 12-29 09:15: 00 12-29 09:15 :00 No [id number] 100mL 100 mL, Intravenou s, ONCE, 1 dose, On [place] 12/29/22 at 0415, Routine [facility] ketorolac (TORADOL) injection 30 mg 12-29 09:00: 00 12-29 07:53 :00 No 30mg 30 mg, Slow IV Push, ONCE, 1 dose, On [place] 12/29/22 at 0400, Routine [facility] ketorolac 10 mg tablet -12 00:00: 00 03-28 00:00 :00 No [id number] 10mg Take 1 tablet by mouth every 6 (six) hours as needed for Pain (scale 7-10). [facility] ondansetron (ZOFRAN) 4 mg tablet -12 00:00: 00 03-28 00:00 :00 No [id number] 4mg Take 1 tablet by mouth every 8 (eight) hours as needed for Nausea and Vomiting (N/V). [facility] maalox:diph enhydrAMINE :lidocaine 2 % viscous 1:1:1 ([facility]OUT [facility]) oral suspension 15 mL 11-21 08:45: 00 11-21 08:36 :00 No 15mL 15 mL, Oral, ONCE, 1 dose, On [place] 11/21/22 at 0245, Routine [facility] metoclopram glenroy HCl (REGLAN) tablet 10 mg 06-02 12:30: 00 Yes 10mg 10 mg, Oral, AC, First dose on 06/02/22 at 0730, Until Discontinu ed, Routine [facility] dexamethaso ne (DECADRON PHOSPHATE) injection 10 mg 06-02 06:00: 00 06-02 04:55 :00 No 10mg 10 mg, Oral, ONCE, 1 dose, On 06/02/22 at 0100, Routine [facility] butalbital- acetaminoph en-caff (ESGIC) 50-325-40 mg tablet 1 tablet 06-02 05:00: 00 06-02 04:56 :00 No 1{tbl} 1 tablet, Oral, ONCE, 1 dose, On 06/02/22 at 0000, [facility]WN [facility] diphenhydrA MINE (BENADRYL) tablet 50 mg 06-02 05:00: 00 06-02 04:54 :00 No 50mg 50 mg, Oral, ONCE, 1 dose, On 06/02/22 at 0000, FAWN [facility] levothyroxi ne (SYNTHROID) tablet 100 mcg 05-29 11:00: 00 Yes 100ug 100 mcg, Oral, QAM-0600, First dose on Fri05/29/22 at 0600, Until Discontinu ed, Routine [facility] levothyroxi ne 200 mcg tablet 05-28 13:18: 02 05-28 00:00 :00 No 300ug Take 300 mcg by mouth every morning. [facility] levothyroxi ne 300 mcg tablet 05-28 00:00: 00 08-27 05:59 :00 No [id number] 300ug Take 1 tablet by mouth every morning for 90 days. [facility] ketorolac (TORADOL) injection 15 mg 05-06 06:30: 00 05-06 05:30 :00 No 15mg 15 mg, Slow IV Push, ONCE, 1 dose, On Fri05/06/22 at 0130, FAWN [facility] iopamidol (ISOVUE 370-500 mL) injection 65 mL 05-06 06:00: 00 05-06 06:15 :00 No [id number] 65mL 65 mL, Intravenou s, ONCE, 1 dose, On Fri05/06/22 at 0115, Routine [facility] benzonatate 200 mg capsule 05-06 00:00: 00 03-28 00:00 :00 No [id number] 200mg Take 1 capsule by mouth 3 (three) times daily as needed for Cough for up to 20 doses. [facility] ondansetron 4 mg disintegrat ing tablet 05-06 00:00: 00 03-28 00:00 :00 No [id number] 4mg Take 1 tablet by mouth every 8 (eight) hours as needed for Nausea and Vomiting (N/V). [facility] ibuprofen 600 mg tablet 05-06 00:00: 00 02-20 00:00 :00 No [id number] 600mg Take 1 tablet by mouth every 6 (six) hours as needed for Pain (scale 4-6). [facility] molnupiravi r 200 mg capsule 05-06 00:00: 00 05-12 04:59 :00 No [id number] 800mg Take 4 capsules by mouth every 12 (twelve) hours for 5 days. [facility] magnesium sulfate in water 2 gram/50 mL (4 %) infusion 2 g 05-01 13:45: 00 05-01 14:06 :00 No 2g 2 g, IV Piggyback, Administer over 60 Minutes, ONCE, 1 dose, On Fri05/01/22 at 0845, Routine [facility] diphenhydrA MINE (BENADRYL) injection 50 mg 05-01 12:45: 00 05-01 12:43 :00 No 50mg 50 mg, Slow IV Push, ONCE, 1 dose, On Fri05/01/22 at 0745, STAT [facility] maalox:diph enhydrAMINE :lidocaine 2 % viscous 1:1:1 (FIRST-MOUT [facility]ASH BLM) oral suspension 15 mL 02-08 07:15: 00 02-08 06:14 :00 No 15mL 15 mL, Oral, ONCE, 1 dose, On Fri02/08/22 at 0215, FAWN [facility] sucralfate 1 gram tablet 02-08 00:00: 00 03-28 00:00 :00 No [id number] 1g Take 1 tablet by mouth before meals and at bedtime. [facility] ondansetron 4 mg disintegrat ing tablet 02-08 00:00: 00 03-28 00:00 :00 No [id number] 4mg Take 1 tablet by mouth every 4 (four) hours as needed for Nausea and Vomiting (N/V). [facility] pantoprazol e 40 mg EC tablet 02-08 00:00: 00 03-28 00:00 :00 No [id number] 40mg Take 1 tablet by mouth daily. [facility] maalox:diph enhydrAMINE :lidocaine 2 % viscous 1:1:1 ([facility] oral suspension 15 mL 2020-10 02:15: 00 10-15 01:17 :00 No 15mL 15 mL, Oral, ONCE, 1 dose, On 10/14/21 at 2015, Routine [facility] iopamidol (ISOVUE 370-500 mL) injection 120 mL 2020-10 01:45: 00 10-15 00:37 :00 No [id number] 120mL 120 mL, Intravenou s, ONCE, 1 dose, On 10/14/21 at 1945, Routine [facility] famotidine (PEPCID (PF)) injection 20 mg 2020-10 00:30: 00 10-15 00:26 :00 No 20mg 20 mg, Slow IV Push, ONCE, 1 dose, On Fri10/14/21 at 1830, Routine [facility] enalapril 20 mg tablet 05-15 17:24: 35 Yes 25mg Take 25 mg by mouth daily. [facility] levothyroxi ne 200 mcg tablet 05-15 17:24: 35 Yes 300ug Take 300 mcg by mouth every morning. [facility] levothyroxi ne 200 mcg tablet 05-15 12:24: 35 Yes 300ug Take 300 mcg by mouth every morning. [facility] enalapril 20 mg tablet 05-15 12:24: 35 03-28 00:00 :00 No 25mg Take 25 mg by mouth daily. [facility] FENTanyl (ACTIQ) lollipop 600 mcg 05-08 19:45: 00 05-08 18:59 :00 No [id number] 600ug 600 mcg, Buccal, ONCE, 1 dose, Fri05/08/21 at 1445, Routine [facility] sulfamethox azole-trime thoprim (BACTRIM DS) 800-160 mg per tablet 05-08 00:00: 00 05-16 04:59 :00 No [id number] 1{tbl} Take 1 tablet by mouth 2 (two) times daily for 7 days. [facility] HYDROcodone -acetaminop hen (NORCO) 10-325 mg tablet 1 tablet 05-06 09:45: 00 05-06 08:44 :00 No 1{tbl} 1 tablet, Oral, ONCE, 1 dose, 05/06/21 at 0445, Routine [facility] sulfamethox azole-trime thoprim 800-160 mg per tablet 05-06 00:00: 00 03-28 00:00 :00 No [id number] 1{tbl} Take 1 tablet by mouth every 12 (twelve) hours. [facility] HYDROcodone -acetaminop hen 5-325 mg tablet 05-06 00:00: 00 05-14 04:59 :00 No [id number] 1{tbl} Take 1 tablet by mouth every 4 (four) hours as needed for Pain (scale 7-10) for up to 7 days. Indication s: acute pain [facility] ketorolac (TORADOL) injection 30 mg 03-15 06:30: 00 03-15 05:44 :00 No 30mg 30 mg, Slow IV Push, ONCE, 1 dose, [facility] 03/15/21 at 0130, Routine
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 [facility] levothyroxi ne 200 mcg tablet 03-15 06:19: 47 Yes 300ug Take 300 mcg by mouth every morning. [facility] iopamidol (ISOVUE 370-500 mL) injection 120 mL 03-15 06:00: 00 03-15 06:00 :00 No [id number] 120mL 120 mL, Intravenou s, ONCE, 1 dose, [facility] 03/15/21 at 0100, Routine [facility] KCL (KLOR-CON M20) tablet 40 mEq 03-15 05:45: 00 03-15 05:01 :00 No [id number] 40 mEq, Oral, ONCE, 1 dose, [facility] 03/15/21 at 0045, Routine [facility] ondansetron (ZOFRAN (PF)) injection 4 mg 03-15 05:30: 00 03-15 04:32 :00 No 4mg 4 mg, Slow IV Push, ONCE, 1 dose, Ale 03/15/21 at 0030, FAWN [facility] FENTanyl PF (SUBLIMAZE (PF)) injection 75 mcg 03-15 05:30: 00 03-15 04:32 :00 No 75ug 75 mcg, Slow IV Push, ONCE, 1 dose, [facility] 03/15/21 at 0030, Routine [facility] traMADoL (ULTRAM) 50 mg tablet 03-15 00:00: 00 03-28 00:00 :00 No [id number] 50mg Take 1 tablet by mouth every 6 (six) hours as needed for Pain (scale 4-6) or Pain (scale 7-10). Indication s: acute pain [facility] methocarbam oL 500 mg tablet 03-15 00:00: 00 03-28 00:00 :00 No [id number] 500mg Take 1 tablet by mouth every 6 (six) hours as needed (MUSCLE SPASM). [facility] ibuprofen 800 mg tablet 03-15 00:00: 00 02-20 00:00 :00 No [id number] 800mg Take 1 tablet by mouth every 8 (eight) hours as needed for Pain (scale 4-6). [facility] pantoprazol e (PROTONIX) 80 mg in NaCl 0.9% (NS) 20 mL syringe 2019-10 00:15: 00 09-08 23:17 :00 No 80mg 80 mg, IV Push, ONCE, 1 dose, Fri09/08/20 at 1815, 20 mL [facility] maalox:diph enhydrAMINE :lidocaine2 %viscous 1:1:1: suspension (COMPOUNDED ) 2019-10 00:15: 00 09-08 23:16 :00 No 15mL 15 mL, Oral, ONCE, 1 dose, Fri09/08/20 at 1815, Routine [facility] sucralfate 1 gram tablet 2019-10 00:00: 00 Yes [id number] 1g Take 1 tablet by mouth before meals and at bedtime. [facility] dicyclomine (BENTYL) 10 mg capsule 2019-10 00:00: 00 Yes [id number] 10mg Take 1 capsule by mouth every 8 (eight) hours as needed for Abdominal pain. [facility] ondansetron 4 mg disintegrat ing tablet 2019-10 00:00: 00 Yes [id number] 4mg Take 1 tablet by mouth every 8 (eight) hours as needed for Nausea and Vomiting (N/V). [facility] omeprazole 20 mg capsule 2019-10 00:00: 00 10-09 05:59 :00 No [id number] 20mg Take 1 capsule by mouth daily for 30 days. [facility] ketorolac (TORADOL) injection 30 mg 2019-10 20:15: 00 09-06 19:14 :00 No 30mg 30 mg, Slow IV Push, ONCE, 1 dose, Fri09/06/20 at 1415, FAWN
Fa culty member approving Restricted medication : Nidia SOSA [facility] FENTanyl PF (SUBLIMAZE (PF)) injection 50 mcg 2019-10 18:45: 00 09-06 17:38 :00 No 50ug 50 mcg, Slow IV Push, ONCE, 1 dose, Fri09/06/20 at 1245, STAT [facility] iohexol (OMNIPAQUE 350 BULK-500 mL) injection 150 mL 2019-10 18:15: 00 09-06 17:00 :00 No 150mL 150 mL, Intravenou s, ONCE, 1 dose, Fri09/06/20 at 1215, Routine [facility] ondansetron (ZOFRAN (PF)) injection 4 mg 2019-10 17:30: 00 09-06 16:33 :00 No 4mg 4 mg, Slow IV Push, ONCE, 1 dose, Fri09/06/20 at 1130, FAWN [facility] morpHINE injection 4 mg 2019-10 17:30: 00 09-06 16:33 :00 No 4mg 4 mg, Slow IV Push, ONCE, 1 dose, Fri09/06/20 at 1130, STAT [facility] ibuprofen 600 mg tablet 2019-10 00:00: 00 03-14 00:00 :00 No [id number] 600mg Take 1 tablet by mouth every 6 (six) hours as needed for Pain (scale 4-6). [facility] Polyethylen e Glycol 3350 (MIRALAX) powder 17 g 2019-10 13:00: 00 08-30 11:55 :00 No 17g 17 g, Oral, ONCE, 1 dose, Fri08/30/20 at 0700, Routine [facility] aspirin 81 mg chewable tablet 2019-10 00:00: 00 09-30 05:59 :00 No [id number] 81mg Take 1 tablet by mouth daily for 30 days. [facility] levothyroxi ne 125 mcg tablet 2019-10 23:22: 41 08-29 00:00 :00 No 300ug Take 300 mcg by mouth every morning. [facility] lisinopriL 30 mg tablet 2019-10 23:22: 41 08-29 00:00 :00 No 25mg Take 25 mg by mouth daily. [facility] ondansetron (ZOFRAN (PF)) injection 4 mg 2019-10 23:15: 07 08-31 23:14 :07 No 4mg 4 mg, Slow IV Push, Q6HPRN, Starting Fri08/29/20 at 1715, Until Fri08/31/20 at 1714, Routine, Nausea and Vomiting (N/V) [facility] morpHINE injection 2 mg 2019-10 22:49: 42 08-30 22:48 :42 No 2mg 2 mg, Slow IV Push, Q4HPRN, Starting Fri08/29/20 at 1649, Until Fri08/30/20 at 1648, Routine, Pain (scale 7-10) [facility] ondansetron (ZOFRAN (PF)) injection 4 mg 2019-10 18:03: 34 08-29 22:50 :21 No 4mg 4 mg, Slow IV Push, Q6HPRN, Starting Fri08/29/20 at 1203, Until Fri08/29/20 at 1650, Routine, Nausea and Vomiting (N/V) [facility] ibuprofen (IBU) tablet 600 mg 2019-10 18:00: 00 Yes 600mg 600 mg, Oral, Q6H, First dose on Fri08/29/20 at 1200, Until Discontinu ed, Routine [facility] acetaminoph en (TYLENOL) tablet 500 mg 2019-10 18:00: 00 Yes 500mg 500 mg, Oral, Q6H, First dose on Fri08/29/20 at 1200, Until Discontinu ed, Routine [facility] lactated ringers IV infusion 1,000 mL 2019-10 17:00: 00 Yes 1000mL at 75 mL/hr, 1,000 mL, IV Infusion, CONTINUOUS , Starting Fri08/29/20 at 1100, Until Discontinu ed, Routine, PACU [facility] FENTanyl PF (SUBLIMAZE (PF)) injection 25 mcg 2019-10 16:57: 53 08-29 17:58 :11 No 25ug 25 mcg, Slow IV Push, Q5MIN PRN, 4 doses, Starting Fri08/29/20 at 1057, Until Fri08/29/20 at 1158, Routine, Pain (scale 4-6), PACU [facility] ondansetron (ZOFRAN (PF)) injection 4 mg 2019-10 16:57: 53 08-29 17:13 :00 No 4mg 4 mg, Slow IV Push, PRN, 1 dose, Starting Fri08/29/20 at 1057, Until Fri08/29/20 at 1113, Routine, Nausea and Vomiting (N/V), PACU [facility] traMADoL (ULTRAM) tablet 100 mg 2019-10 16:11: 10 08-29 22:51 :09 No 100mg 100 mg, Oral, Q6HPRN, Starting Fri08/29/20 at 1011, Until Fri08/29/20 at 1651, Routine, Pain (scale 7-10) [facility] traMADoL (ULTRAM) tablet 50 mg 2019-10 16:10: 52 Yes 50mg 50 mg, Oral, Q6HPRN, Starting Fri08/29/20 at 1010, Until Discontinu ed, Routine, Pain (scale 4-6) [facility] acetaminoph en ADULT (OFIRMEV) injection 1,000 mg 2019-10 00:15: 00 08-29 16:11 :33 No 1000mg 1,000 mg, IV Infusion, Administer over 15 Minutes, Q6H ABX, 4 doses, First dose on Fri08/28/20 at 1815, Last dose on Fri08/29/20 at 1215, Routine
Indicatio n: Non-periop erative Patient
Approved by: Per Policy (NPO Status) [facility] metroNIDAZO LE in NaCl (iso-os) (FLAGYL I.V.) RTU IV infusion 500 mg 2019-10 00:15: 00 08-29 16:11 :42 No 500mg 500 mg, IV Infusion, Q8H ABX, First dose on Fri08/28/20 at 1815, Until Discontinu ed, 100 mL
Reas on for Anti-Infec tive: Empiric Therapy for Suspected Infection< br>Empiric Therapy Site: Abdominal< br>Duratio n of therapy: 7 days [facility] levoFLOXaci n in D5W (LEVAQUIN) 750 mg/150 mL Piggyback 750 mg 2019-10 00:15: 00 08-29 16:11 :42 No 750mg 750 mg, IV Piggyback, Administer over 90 Minutes, Q24H ABX, First dose on Fri08/28/20 at 1815, Until Discontinu ed, [facility]WN
Re ason for Anti-Infec tive: Empiric Therapy for Suspected Infection< br>Empiric Therapy Site: Abdominal< br>Duratio n of therapy: 72 hours [facility] levothyroxi ne 125 mcg tablet 2019-10 00:00: 00 09-29 05:59 :00 No [id number] 312.5ug Take 2.5 tablets by mouth every morning for 30 days. [facility] lisinopriL 30 mg tablet 2019-10 00:00: 00 09-29 05:59 :00 No [id number] 30mg Take 1 tablet by mouth daily for 30 days. [facility] pantoprazol e (PROTONIX) 40 mg EC tablet 2019-10 00:00: 00 09-29 05:59 :00 No [id number] 40mg Take 1 tablet by mouth daily for 30 days. [facility] ibuprofen 800 mg tablet 2019-10 00:00: 00 09-04 05:59 :00 No [id number] 800mg Take 1 tablet by mouth every 8 (eight) hours as needed for Pain (scale 4-6) for up to 5 days. [facility] sulfur hexafluorid e microsphr (LUMASON) injection 5 mL 2019-10 21:30: 00 08-28 16:58 :00 No 5mL 5 mL, Intravenou s, ONCE, 1 dose, Fri08/28/20 at 1530, Routine
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 Restricted medication : BRYSON COHEN [facility] morpHINE injection 4 mg 2019-10 20:09: 08 08-29 16:11 :42 No 4mg 4 mg, Slow IV Push, Q4HPRN, Starting Fri08/28/20 at 1409, Until Fri08/29/20 at 1011, Routine, Pain (scale 7-10) [facility] morpHINE injection 2 mg 2019-10 18:15: 00 08-28 17:20 :00 No 2mg 2 mg, Slow IV Push, ONCE, 1 dose, Fri08/28/20 at 1215, Routine [facility] levothyroxi ne (SYNTHROID) tablet 200 mcg 2019-10 12:00: 00 Yes 200ug 200 mcg, Oral, QAM-0600, First dose (after last modificati on) on 08/28/20 at 0600, Until Discontinu ed, Routine [facility] enoxaparin (LOVENOX) injection 40 mg 2019-10 23:00: 00 Yes 40mg 40 mg, Subcutaneo us, DAILY, First dose on 08/27/20 at 1700, Until Discontinu ed, Routine [facility] ketorolac (TORADOL) injection 30 mg 2019-10 15:45: 00 08-27 14:53 :00 No 30mg 30 mg, Slow IV Push, ONCE, 1 dose, 08/27/20 at 0945, Routine
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 Restricted medication : DOMINGO ANNE [facility] lisinopriL (PRINIVIL,Z ESTRIL) tablet 20 mg 2019-10 15:00: 00 Yes 20mg 20 mg, Oral, DAILY, First dose on 08/27/20 at 0900, Until Discontinu ed, Routine [facility] pantoprazol e (PROTONIX) EC tablet 40 mg 2019-10 15:00: 00 Yes 40mg 40 mg, Oral, DAILY, First dose on 08/27/20 at 0900, Until Discontinu ed, Routine [facility] aspirin chewable tablet 81 mg 2019-10 15:00: 00 Yes 81mg 81 mg, Oral, DAILY, First dose on 08/27/20 at 0900, Until Discontinu ed, Rout[facility] levothyroxi [facility] (SYNTHROID) tablet 300 mcg 2019-10 12:00: 00 08-27 14:38 :59 No 300ug 300 mcg, Oral, QAM-0600, First dose on 08/27/20 at 0600, Until Discontinu ed, Routine [facility] nicotine (NICODERM) 21 mg/24 hr patch 1 Patch 2019-10 08:30: 00 Yes 1{patch } 1 Patch, Topical, Administer over 24 Hours, Q24H, First dose on 08/27/20 at 0230, Until Discontinu ed, Routine [facility] acetaminoph en (TYLENOL) tablet 975 mg 2019-10 08:15: 00 08-27 07:56 :00 No 975mg 975 mg, Oral, ONCE, 1 dose, [place] 08/27/20 at 0215, [facility]WN [facility] iohexol (OMNIPAQUE 350 BULK-100 mL) injection 120 mL 2019-10 07:45: 00 08-27 07:34 :00 No 120mL 120 mL, Intravenou s, ONCE, 1 dose, [place] 08/27/20 at 0145, Routine [facility] traMADoL (ULTRAM) tablet 50 mg 2019-10 07:16: 43 08-29 07:15 :43 No 50mg 50 mg, Oral, Q8HPRN, Starting [place] 08/27/20 at 0116, Until 08/29/20 at 0115, Routine, Pain (scale 4-6) [facility] acetaminoph en (TYLENOL) tablet 650 mg 2019-10 07:16: 41 08-28 23:11 :03 No 650mg 650 mg, Oral, Q6HPRN, Starting 08/27/20 at 0116, Until 08/28/20 at 1711, Routine, Pain (scale 1-3) [facility] morpHINE injection 2 mg 2019-10 07:14: 54 08-28 20:09 :18 No 2mg 2 mg, Slow IV Push, Q4HPRN, Starting [place] 08/27/20 at 0114, Until 08/28/20 at 1409, Routine, Pain (scale 7-10) [facility] nitroglycer in (NITROSTAT) sublingual tablet 0.4 mg 2019-10 07:03: 30 Yes .4mg 0.4 mg, Sublingual , Q5MIN PRN, Starting [place] 08/27/20 at 0103, Until Discontinu ed, Routine, Chest pain [facility] alum-mag hydroxide-s imeth (MAALOX PLUS / MAG-AL PLUS) 200-200-20 mg/5 mL suspension 30 mL 2019-10 07:02: 48 Yes 30mL 30 mL, Oral, Q6HPRN, Starting 08/27/20 at 0102, Until Discontinu ed, Routine, Indigestio n [facility] aspirin tablet 325 mg 2019-10 07:00: 00 08-27 06:16 :00 No 325mg 325 mg, Oral, ONCE, 1 dose, 08/27/20 at 0100, STAT [facility] nitroglycer in (NITROSTAT) sublingual tablet 0.4 mg 2019-10 07:00: 00 08-27 06:16 :00 No .4mg 0.4 mg, Sublingual , ONCE, 1 dose, 08/27/20 at 0100, FAWN [facility] aspirin chewable tablet 324 mg 07-10 14:00: 00 Yes 324mg 324 mg, Oral, DAILY, First dose on 07/10/20 at 0900, Until Discontinu ed, Routine [facility] iohexol (OMNIPAQUE 350 BULK-100 mL) injection 120 mL 07-10 05:15: 00 07-10 05:08 :00 No 120mL 120 mL, Intravenou s, ONCE, 1 dose, 07/10/20 at 0015, Routine [facility] codeine-gua ifenesin (ROBITUSSIN AC) 10-100 mg/5 mL solution 10 mL 07-10 04:30: 00 07-10 03:23 :00 No 10mL 10 mL, Oral, ONCE, 1 dose, 07/09/20 at 2330, FAWN [facility] LORazepam (ATIVAN) injection 1 mg 07-10 03:45: 00 07-10 03:14 :00 No 1mg 1 mg, Slow IV Push, ONCE, 1 dose, 07/09/20 at 2245, STAT [facility] morpHINE injection 4 mg 07-10 03:30: 00 07-10 03:16 :00 No 4mg 4 mg, Slow IV Push, ONCE, 1 dose, 07/09/20 at 2230, STAT [facility] pantoprazol e (PROTONIX) 40 mg in NaCl 0.9% (NS) 100 mL MINI-BAG 07-10 02:30: 00 07-10 01:48 :00 No 40mg 40 mg, IV Piggyback, ONCE, 1 dose, 07/09/20 at 2130, 100 mL [facility] ondansetron (ZOFRAN (PF)) injection 4 mg 07-10 02:00: 00 07-10 01:03 :00 No 4mg 4 mg, Slow IV Push, ONCE, 1 dose, 07/09/20 at 2100, FAWN [facility] morpHINE injection 4 mg 07-10 02:00: 00 07-10 01:03 :00 No 4mg 4 mg, Slow IV Push, ONCE, 1 dose, 07/09/20 at 2100, STAT [facility] nitroglycer in (NITROSTAT) sublingual tablet 0.4 mg 07-10 02:00: 00 07-10 01:02 :00 No .4mg 0.4 mg, Sublingual , ONCE, 1 dose, 07/09/20 at 2100, FAWN [facility] pantoprazol e (PROTONIX) 40 mg EC tablet 07-10 00:00: 00 08-29 00:00 :00 No [id number] 40mg Take 1 tablet by mouth daily. [facility] dicyclomine 20 mg tablet 07-10 00:00: 00 08-29 00:00 :00 No [id number] 20mg Take 1 tablet by mouth every 6 (six) hours as needed for Abdominal pain. [facility] benzonatate 200 mg capsule 07-10 00:00: 00 08-29 00:00 :00 No [id number] 200mg Take 1 capsule by mouth 3 (three) times daily as needed for Cough. [facility] ibuprofen 800 mg tablet 2018-10 00:00: 08-29 00:00 :00 No [id number] 800mg Take 1 tablet by mouth every 8 (eight) hours as needed for Pain (scale 4-6). [facility] cyclobenzap rine 5 mg tablet 03-30 00:00: 00 08-29 00:00 :00 No [id number] 5mg Take 1 tablet by mouth 3 (three) times daily as needed for Muscle Spasms. [facility] LORazepam (ATIVAN) 0.5 mg tablet 06-14 00:00: 00 08-29 00:00 :00 No .5mg Take 1 tablet by mouth 2 (two) times daily as needed for Anxiety. [facility] levothyroxi ne 125 mcg tablet 05-11 10:32: 30 Yes 125ug Take 125 mcg by mouth every morning. [facility] Vital Signs Vital Name Observation Time Observation Value Comments S ource WEIGHT 2025-05-28 16:01:00 111.267 kg HEIGHT 2025-05-14 06:35:00 172.7 cm WEIGHT 2025-05-14 06:35:00 116.121 kg WEIGHT 2025-05-28 16:01:00 111.267 kg HEIGHT 2025-05-14 06:35:00 172.7 cm WEIGHT 2025-05-14 06:35:00 116.121 kg WEIGHT 2025-05-28 16:01:00 111.267 kg HEIGHT 2025-05-14 06:35:00 172.7 cm WEIGHT 2025-05-14 06:35:00 116.121 kg Systolic blood pressure 2025-03-30 20:17:00 141 mm[Hg] [facility] Diastolic blood pressure 2025-03-30 20:17:00 82 mm[Hg] [facility] Body temperature 2025-03-30 20:17:00 36.22 Nano [facility] Respiratory rate 2025-03-30 20:17:00 22 /min [facility] Heart rate 2025-03-30 20:00:00 76 /min Panterae [facility] Oxygen saturation in Arterial blood by Pulse oximetry 2025-03-30 20:00:00 95 /min [facility] Body height 2025-03-30 14:25:00 175.3 cm [facility] Body weight 2025-03-30 14:25:00 116.8 kg [facility] BMI 2025-03-30 14:25:00 38.03 kg/m2 [facility] Systolic blood pressure 2025-03-30 20:17:00 141 mm[Hg] [facility] Diastolic blood pressure 2025-03-30 20:17:00 82 mm[Hg] [facility] Body temperature 2025-03-30 20:17:00 36.22 Nano [facility] Respiratory rate 2025-03-30 20:17:00 22 /min [facility] Heart rate 2025-03-30 20:00:00 76 /[facility] Oxygen saturation in Arterial blood by Pulse oximetry 2025-03-30 20:00:00 95 /min [facility] Body height 2025-03-30 14:25:00 175.3 cm [facility] Body weight 2025-03-30 14:25:00 116.8 kg [facility] BMI 2025-03-30 14:25:00 38.03 kg/m2 [facility] Systolic blood pressure 2024-11-14 02:39:00 156 mm[Hg] [facility] Diastolic blood pressure 2024-11-14 02:39:00 88 mm[Hg] [facility] Heart rate 2024-11-14 02:39:00 88 /min Unive [facility] Body temperature 2024-11-14 02:39:00 37.11 Nano [facility] Respiratory rate 2024-11-14 02:39:00 16 /min [facility] Body height 2024-11-14 02:39:00 172.7 cm [facility] Body weight 2024-11-14 02:39:00 111.131 kg [facility] BMI 2024-11-14 02:39:00 37.25 kg/m2 [facility] Oxygen saturation in Arterial blood by Pulse oximetry 2024-11-14 02:39:00 98 /min [facility] Systolic blood pressure 2024-02-04 18:48:00 142 mm[Hg] [facility] Diastolic blood pressure 2024-02-04 18:48:00 97 mm[Hg] [facility] Heart rate 2024-02-04 18:48:00 84 /min Unive [facility] Respiratory rate 2024-02-04 18:48:00 16 /min [facility] Oxygen saturation in Arterial blood by Pulse oximetry 2024-02-04 18:48:00 97 /min [facility] Body temperature 2024-02-04 15:46:00 36.67 Nnao [facility] Body height 2024-02-04 15:46:00 172.7 cm [facility] Body weight 2024-02-04 15:46:00 111.131 kg [facility] BMI 2024-02-04 15:46:00 37.25 kg/m2 [facility] Heart rate 2023-12-28 09:23:00 84 /min Unive [facility] Respiratory rate 2023-12-28 09:23:00 16 /min [facility] Oxygen saturation in Arterial blood by Pulse oximetry 2023-12-28 09:23:00 96 /min [facility] Systolic blood pressure 2023-12-28 09:00:00 131 mm[Hg] [facility] Diastolic blood pressure 2023-12-28 09:00:00 81 mm[Hg] [facility] Body temperature 2023-12-28 08:13:00 37 Nano [facility] Body height 2023-12-28 08:13:00 172.7 cm [facility] Body weight 2023-12-28 08:13:00 110.632 kg [facility] BMI 2023-12-28 08:13:00 37.08 kg/m2 [facility] Systolic blood pressure 2023-11-06 08:00:00 117 mm[Hg] [facility] Diastolic blood pressure 2023-11-06 08:00:00 75 mm[Hg] [facility] Heart rate 2023-11-06 08:00:00 80 /min Unive [facility] Body temperature 2023-11-06 08:00:00 37 Nano [facility] Respiratory rate 2023-11-06 08:00:00 18 /min [facility] Oxygen saturation in Arterial blood by Pulse oximetry 2023-11-06 08:00:00 97 /min [facility] Body height 2023-11-06 05:50:00 172.7 cm [facility] Body weight 2023-11-06 05:50:00 113.309 kg [facility] BMI 2023-11-06 05:50:00 37.98 kg/m2 [facility] Systolic blood pressure 2023-11-01 10:00:00 142 mm[Hg] [facility] Diastolic blood pressure 2023-11-01 10:00:00 81 mm[Hg] [facility] Heart rate 2023-11-01 10:00:00 79 /min Unive [facility] Body temperature 2023-11-01 10:00:00 37.17 Nano [facility] Respiratory rate 2023-11-01 10:00:00 16 /min [facility] Oxygen saturation in Arterial blood by Pulse oximetry 2023-11-01 10:00:00 94 /min [facility] Body height 2023-11-01 05:37:00 172.7 cm [facility] Body weight 2023-11-01 05:37:00 111.131 kg [facility] BMI 2023-11-01 05:37:00 37.25 kg/m2 [facility] Systolic blood pressure 2023-10-23 08:00:00 140 mm[Hg] [facility] Diastolic blood pressure 2023-10-23 08:00:00 88 mm[Hg] [facility] Heart rate 2023-10-23 08:00:00 89 /min Unive [facility] Oxygen saturation in Arterial blood by Pulse oximetry 2023-10-23 08:00:00 94 /min [facility] Respiratory rate 2023-10-23 05:53:00 16 /min [facility] Body temperature 2023-10-23 05:45:00 36.72 Nano [facility] Body height 2023-10-23 05:45:00 172.7 cm [facility] Body weight 2023-10-23 05:45:00 113.399 kg [facility] BMI 2023-10-23 05:45:00 38.01 kg/m2 [facility] Systolic blood pressure 2023-09-26 08:00:00 159 mm[Hg] [facility] Diastolic blood pressure 2023-09-26 08:00:00 80 mm[Hg] [facility] Heart rate 2023-09-26 08:00:00 75 /min [facility] Respiratory rate 2023-09-26 08:00:00 20 /min [facility] Oxygen saturation in Arterial blood by Pulse oximetry 2023-09-26 08:00:00 94 /min [facility] Body temperature 2023-09-26 05:02:00 36.72 Nano [facility] Systolic blood pressure 2023-08-24 08:14:00 140 mm[Hg] [facility] Diastolic blood pressure 2023-08-24 08:14:00 73 mm[Hg] [facility] Heart rate 2023-08-24 08:14:00 75 /min [facility] Body temperature 2023-08-24 08:14:00 36.67 Nano [facility] Respiratory rate 2023-08-24 08:14:00 18 /min [facility] Oxygen saturation in Arterial blood by Pulse oximetry 2023-08-24 08:14:00 96 /min [facility] Body height 2023-08-24 03:41:00 172.7 cm [facility] Body weight 2023-08-24 03:41:00 113.399 kg [facility] BMI 2023-08-24 03:41:00 38.01 kg/m2 [facility] Systolic blood pressure 2023-07-07 10:53:00 140 mm[Hg] [facility] Diastolic blood pressure 2023-07-07 10:53:00 83 mm[Hg] [facility] Heart rate 2023-07-07 10:53:00 75 /min Unive [facility] Respiratory rate 2023-07-07 10:53:00 16 /min [facility] Oxygen saturation in Arterial blood by Pulse oximetry 2023-07-07 10:53:00 97 /min [facility] Body temperature 2023-07-07 08:57:00 36.44 Nano [facility] Body height 2023-07-07 08:57:00 172.7 cm [facility] Body weight 2023-07-07 08:57:00 113.399 kg [facility] BMI 2023-07-07 08:57:00 38.01 kg/m2 [facility] Systolic blood pressure 2023-05-26 03:30:00 140 mm[Hg] [facility] Diastolic blood pressure 2023-05-26 03:30:00 78 mm[Hg] [facility] Heart rate 2023-05-26 03:30:00 80 /min Unive [facility] Respiratory rate 2023-05-26 03:30:00 23 /min [facility] Oxygen saturation in Arterial blood by Pulse oximetry 2023-05-26 03:30:00 94 /min [facility] Body temperature 2023-05-26 03:00:00 36.78 Nano [facility] Body weight 2023-05-25 22:19:00 121.564 kg [facility] BMI 2023-05-25 22:19:00 40.75 kg/m2 [facility] Systolic blood pressure 2023-02-21 01:51:00 123 mm[Hg] [facility] Diastolic blood pressure 2023-02-21 01:51:00 74 mm[Hg] [facility] Heart rate 2023-02-20 23:03:00 95 /min Unive [facility] Body temperature 2023-02-20 23:03:00 38.28 Nano [facility] Respiratory rate 2023-02-20 23:03:00 18 /min [facility] Body height 2023-02-20 23:03:00 172.7 cm [facility] Body weight 2023-02-20 23:03:00 121.564 kg [facility] BMI 2023-02-20 23:03:00 40.75 kg/m2 [facility] Oxygen saturation in Arterial blood by Pulse oximetry 2023-02-20 23:03:00 97 /min [facility] Systolic blood pressure 2022-12-29 10:00:00 142 mm[Hg] [facility] Diastolic blood pressure 2022-12-29 10:00:00 78 mm[Hg] [facility] Heart rate 2022-12-29 10:00:00 71 /min Unive [facility] Oxygen saturation in Arterial blood by Pulse oximetry 2022-12-29 09:57:00 96 /min [facility] Body temperature 2022-12-29 06:35:00 36.89 Nano [facility] Respiratory rate 2022-12-29 06:35:00 20 /min [facility] Body height 2022-12-29 06:35:00 172.7 cm [facility] Body weight 2022-12-29 06:35:00 121.745 kg [facility] BMI 2022-12-29 06:35:00 40.81 kg/m2 [facility] Systolic blood pressure 2022-11-21 08:14:00 162 mm[Hg] [facility] Diastolic blood pressure 2022-11-21 08:14:00 101 mm[Hg] [facility] Heart rate 2022-11-21 08:09:00 92 /min Unive [facility] Body temperature 2022-11-21 08:09:00 37.11 Nano [facility] Respiratory rate 2022-11-21 08:09:00 16 /min [facility] Body height 2022-11-21 08:09:00 172.7 cm [facility] Body weight 2022-11-21 08:09:00 115.667 kg [facility] BMI 2022-11-21 08:09:00 38.77 kg/m2 [facility] Oxygen saturation in Arterial blood by Pulse oximetry 2022-11-21 08:09:00 97 /min [facility] Systolic blood pressure 2022-10-29 07:34:00 167 mm[Hg] [facility] Diastolic blood pressure 2022-10-29 07:34:00 97 mm[Hg] [facility] Heart rate 2022-10-29 07:34:00 93 /min Unive [facility] Body temperature 2022-10-29 07:34:00 37.39 Nano [facility] Respiratory rate 2022-10-29 07:34:00 20 /min [facility] Body height 2022-10-29 07:34:00 172.7 cm [facility] Body weight 2022-10-29 07:34:00 113.399 kg [facility] BMI 2022-10-29 07:34:00 38.01 kg/m2 [facility] Oxygen saturation in Arterial blood by Pulse oximetry 2022-10-29 07:34:00 97 /min [facility] Systolic blood pressure 2022-06-02 05:00:00 165 mm[Hg] [facility] Diastolic blood pressure 2022-06-02 05:00:00 119 mm[Hg] [facility] Heart rate 2022-06-02 05:00:00 74 /min [facility] Respiratory rate 2022-06-02 05:00:00 23 /min [facility] Oxygen saturation in Arterial blood by Pulse oximetry 2022-06-02 05:00:00 95 /min [facility] Body temperature 2022-06-02 04:41:00 36.67 Nano [facility] Systolic blood pressure 2022-05-28 18:36:21 147 mm[Hg] [facility] Diastolic blood pressure 2022-05-28 18:36:21 97 mm[Hg] [facility] Heart rate 2022-05-28 18:36:21 62 /min Unive [facility] Respiratory rate 2022-05-28 18:36:21 18 /min [facility] Oxygen saturation in Arterial blood by Pulse oximetry 2022-05-28 18:36:21 96 /min [facility] Body temperature 2022-05-28 15:06:00 37.22 Nano [facility] Body height 2022-05-28 15:06:00 172.7 cm [facility] Body weight 2022-05-28 15:06:00 124.739 kg [facility] BMI 2022-05-28 15:06:00 41.81 kg/m2 [facility] Systolic blood pressure 2022-05-06 06:42:00 137 mm[Hg] [facility] Diastolic blood pressure 2022-05-06 06:42:00 90 mm[Hg] [facility] Heart rate 2022-05-06 06:42:00 81 /min Unive [facility] Respiratory rate 2022-05-06 06:42:00 16 /min [facility] Oxygen saturation in Arterial blood by Pulse oximetry 2022-05-06 06:42:00 94 /min [facility] Body temperature 2022-05-06 03:30:00 36.78 Nano [facility] Body height 2022-05-06 03:30:00 172.7 cm [facility] Body weight 2022-05-06 03:30:00 117.935 kg [facility] BMI 2022-05-06 03:30:00 39.53 kg/m2 [facility] Systolic blood pressure 2022-05-01 13:30:00 147 mm[Hg] [facility] Diastolic blood pressure 2022-05-01 13:30:00 91 mm[Hg] [facility] Heart rate 2022-05-01 13:30:00 73 /min Unive [facility] Respiratory rate 2022-05-01 13:30:00 17 /min [facility] Oxygen saturation in Arterial blood by Pulse oximetry 2022-05-01 13:30:00 95 /min [facility] Body temperature 2022-05-01 12:28:00 36.78 Nano [facility] Body weight 2022-05-01 12:28:00 121.564 kg [facility] BMI 2022-05-01 12:28:00 40.75 kg/m2 [facility] Systolic blood pressure 2022-02-08 07:00:00 133 mm[Hg] [facility] Diastolic blood pressure 2022-02-08 07:00:00 94 mm[Hg] [facility] Heart rate 2022-02-08 07:00:00 77 /min Unive [facility] Respiratory rate 2022-02-08 07:00:00 21 /min [facility] Oxygen saturation in Arterial blood by Pulse oximetry 2022-02-08 07:00:00 95 /min [facility] Body temperature 2022-02-08 06:04:00 36.5 Nano [facility] Body height 2022-02-08 06:04:00 172.7 cm [facility] Body weight 2022-02-08 06:04:00 113.399 kg [facility] BMI 2022-02-08 06:04:00 38.01 kg/m2 [facility] Systolic blood pressure 2021-10-14 22:36:00 152 mm[Hg] [facility] Diastolic blood pressure 2021-10-14 22:36:00 87 mm[Hg] [facility] Heart rate 2021-10-14 22:36:00 95 /min Unive [facility] Body temperature 2021-10-14 22:36:00 36.94 Nano [facility] Respiratory rate 2021-10-14 22:36:00 18 /min [facility] Body weight 2021-10-14 22:36:00 122.29 kg [facility] BMI 2021-10-14 22:36:00 40.99 kg/m2 [facility] Oxygen saturation in Arterial blood by Pulse oximetry 2021-10-14 22:36:00 97 /min [facility] Systolic blood pressure 2021-05-15 17:15:00 148 mm[Hg] [facility] Diastolic blood pressure 2021-05-15 17:15:00 84 mm[Hg] [facility] Heart rate 2021-05-15 17:15:00 99 /min Unive [facility] Body temperature 2021-05-15 17:15:00 36.5 Nano [facility] Respiratory rate 2021-05-15 17:15:00 20 /min [facility] Body weight 2021-05-15 17:15:00 117.073 kg [facility] BMI 2021-05-15 17:15:00 39.24 kg/m2 [facility] Oxygen saturation in Arterial blood by Pulse oximetry 2021-05-15 17:15:00 97 /min [facility] Systolic blood pressure 2021-05-08 18:10:00 156 mm[Hg] [facility] Diastolic blood pressure 2021-05-08 18:10:00 95 mm[Hg] [facility] Heart rate 2021-05-08 18:10:00 99 /min Unive [facility] Body temperature 2021-05-08 18:10:00 36.06 Nano [facility] Respiratory rate 2021-05-08 18:10:00 18 /min [facility] Body weight 2021-05-08 18:10:00 116.756 kg [facility] BMI 2021-05-08 18:10:00 39.14 kg/m2 [facility] Oxygen saturation in Arterial blood by Pulse oximetry 2021-05-08 18:10:00 96 /min [facility] Systolic blood pressure 2021-05-06 09:26:00 145 mm[Hg] [facility] Diastolic blood pressure 2021-05-06 09:26:00 93 mm[Hg] [facility] Heart rate 2021-05-06 09:26:00 79 /min Unive [facility] Respiratory rate 2021-05-06 09:26:00 20 /min [facility] Oxygen saturation in Arterial blood by Pulse oximetry 2021-05-06 09:26:00 97 /min [facility] Body temperature 2021-05-06 07:56:00 37.11 Nano [facility] Body height 2021-05-06 07:56:00 172.7 cm [facility] Body weight 2021-05-06 07:56:00 118.434 kg [facility] BMI 2021-05-06 07:56:00 39.70 kg/m2 [facility] Systolic blood pressure 2021-03-15 06:19:00 127 mm[Hg] [facility] Diastolic blood pressure 2021-03-15 06:19:00 79 mm[Hg] [facility] Heart rate 2021-03-15 06:19:00 78 /min Unive [facility] Respiratory rate 2021-03-15 06:19:00 23 /min [facility] Oxygen saturation in Arterial blood by Pulse oximetry 2021-03-15 06:19:00 96 /min [facility] Body temperature 2021-03-15 03:05:45 37 Nano [facility] Body weight 2021-03-15 02:46:00 114.76 kg [facility] BMI 2021-03-15 02:46:00 38.47 kg/m2 [facility] Systolic blood pressure 2021-03-15 06:19:00 127 mm[Hg] [facility] Diastolic blood pressure 2021-03-15 06:19:00 79 mm[Hg] [facility] Heart rate 2021-03-15 06:19:00 78 /min [facility] Respiratory rate 2021-03-15 06:19:00 23 /min [facility] Oxygen saturation in Arterial blood by Pulse oximetry 2021-03-15 06:19:00 96 /min [facility] Body temperature 2021-03-15 03:05:45 37 Nano [facility] Body weight 2021-03-15 02:46:00 114.76 kg [facility] BMI 2021-03-15 02:46:00 38.47 kg/m2 [facility] Systolic blood pressure 2020-09-09 00:10:00 124 mm[Hg] [facility] Diastolic blood pressure 2020-09-09 00:10:00 77 mm[Hg] [facility] Heart rate 2020-09-09 00:10:00 83 /min Unive [facility] Respiratory rate 2020-09-09 00:10:00 16 /min [facility] Oxygen saturation in Arterial blood by Pulse oximetry 2020-09-09 00:10:00 97 /min [facility] Body temperature 2020-09-08 23:14:00 37.39 Nano [facility] Body weight 2020-09-08 22:49:00 107.956 kg [facility] BMI 2020-09-08 22:49:00 36.19 kg/m2 [facility] Systolic blood pressure 2020-09-09 00:10:00 124 mm[Hg] [facility] Diastolic blood pressure 2020-09-09 00:10:00 77 mm[Hg] [facility] Heart rate 2020-09-09 00:10:00 83 /min Unive [facility] Respiratory rate 2020-09-09 00:10:00 16 /min [facility] Oxygen saturation in Arterial blood by Pulse oximetry 2020-09-09 00:10:00 97 /min [facility] Body temperature 2020-09-08 23:14:00 37.39 Nano [facility] Body weight 2020-09-08 22:49:00 107.956 kg [facility] BMI 2020-09-08 22:49:00 36.19 kg/m2 [facility] Systolic blood pressure 2020-09-06 19:30:00 115 mm[Hg] [facility] Diastolic blood pressure 2020-09-06 19:30:00 65 mm[Hg] [facility] Heart rate 2020-09-06 19:30:00 67 /min [facility] Body temperature 2020-09-06 19:30:00 36.83 Nano [facility] Respiratory rate 2020-09-06 19:30:00 19 /min [facility] Oxygen saturation in Arterial blood by Pulse oximetry 2020-09-06 19:30:00 99 /min [facility] Body weight 2020-09-06 15:41:00 107.956 kg [facility] BMI 2020-09-06 15:41:00 36.19 kg/m2 [facility] Systolic blood pressure 2020-09-06 19:30:00 115 mm[Hg] [facility] Diastolic blood pressure 2020-09-06 19:30:00 65 mm[Hg] [facility] Heart rate 2020-09-06 19:30:00 67 /min [facility] Body temperature 2020-09-06 19:30:00 36.83 Nano [facility] Respiratory rate 2020-09-06 19:30:00 19 /min [facility] Oxygen saturation in Arterial blood by Pulse oximetry 2020-09-06 19:30:00 99 /min [facility] Body weight 2020-09-06 15:41:00 107.956 kg [facility] BMI 2020-09-06 15:41:00 36.19 kg/m2 [facility] Systolic blood pressure 2020-08-30 13:11:00 136 mm[Hg] [facility] Diastolic blood pressure 2020-08-30 13:11:00 77 mm[Hg] [facility] Heart rate 2020-08-30 13:11:00 74 /min [facility] Body temperature 2020-08-30 13:11:00 36.5 Nano [facility] Respiratory rate 2020-08-30 13:11:00 18 /min [facility] Oxygen saturation in Arterial blood by Pulse oximetry 2020-08-30 13:11:00 96 /min [facility] Body weight 2020-08-30 09:00:00 107.956 kg [facility] BMI 2020-08-30 09:00:00 36.19 kg/m2 [facility] Body height 2020-08-27 07:49:00 172.7 cm [facility] Systolic blood pressure 2020-08-30 13:11:00 136 mm[Hg] [facility] Diastolic blood pressure 2020-08-30 13:11:00 77 mm[Hg] [facility] Heart rate 2020-08-30 13:11:00 74 /min [facility] Body temperature 2020-08-30 13:11:00 36.5 Nano [facility] Respiratory rate 2020-08-30 13:11:00 18 /min [facility] Oxygen saturation in Arterial blood by Pulse oximetry 2020-08-30 13:11:00 96 /min [facility] Body weight 2020-08-30 09:00:00 107.956 kg [facility] BMI 2020-08-30 09:00:00 36.19 kg/m2 [facility] Body height 2020-08-27 07:49:00 172.7 cm [facility] Systolic blood pressure 2020-07-10 05:30:00 123 mm[Hg] [facility] Diastolic blood pressure 2020-07-10 05:30:00 77 mm[Hg] [facility] Heart rate 2020-07-10 05:30:00 75 /min [facility] Respiratory rate 2020-07-10 05:30:00 19 /min [facility] Oxygen saturation in Arterial blood by Pulse oximetry 2020-07-10 05:30:00 97 /min [facility] Body temperature 2020-07-10 00:48:00 37.39 Nano [facility] Body height 2020-07-10 00:48:00 172.7 cm [facility] Body weight 2020-07-10 00:43:00 99.791 kg [facility] BMI 2020-07-10 00:43:00 33.45 kg/m2 [facility] Systolic blood pressure 2020-07-10 05:30:00 123 mm[Hg] [facility] Diastolic blood pressure 2020-07-10 05:30:00 77 mm[Hg] [facility] Heart rate 2020-07-10 05:30:00 75 /min [facility] Respiratory rate 2020-07-10 05:30:00 19 /min [facility] Oxygen saturation in Arterial blood by Pulse oximetry 2020-07-10 05:30:00 97 /min [facility] Body temperature 2020-07-10 00:48:00 37.39 Nano [facility] Body height 2020-07-10 00:48:00 172.7 cm [facility] Body weight 2020-07-10 00:43:00 99.791 kg [facility] BMI 2020-07-10 00:43:00 33.45 kg/m2 [facility] Heart rate 2025-05-30 12:24:47 76 /min [facility] Body temperature 2025-05-30 12:24:47 36.61 Nano [facility] Respiratory rate 2025-05-30 12:24:47 18 /min [facility] Oxygen saturation in Arterial blood by Pulse oximetry 2025-05-30 12:24:47 96 /min [facility] Systolic blood pressure 2025-05-30 12:23:45 136 mm[Hg] [facility] Diastolic blood pressure 2025-05-30 12:23:45 87 mm[Hg] [facility] Body weight 2025-05-28 16:01:00 111.267 kg [facility] BMI 2025-05-28 16:01:00 37.61 kg/m2 [facility] Body height 2025-05-23 11:45:00 172 cm [facility] Procedures Procedure Date / Time Performed Performing Clinician Source POCT-GLUCOSE METER 2025-05-30 12:22:00 [facility] PARAMJIT AURIS PCR SURVEILLANCE 2025-05-30 10:05:00 [facility] POCT-GLUCOSE METER 2025-05-30 07:32:00 [facility] TOXOPLASMA GONDII ANTIBODY, IGM 2025-05-30 05:05[facility]UCAN WITH REFLEX TO TITER 2025-05-30 05:05:00 [facility] CBC W/PLT COUNT & AUTO DIFFERENTIAL 2025-05-30 05:05:00 Elizabeth [facility] MAGNESIUM 2025-05-30 05:05:00 Elizabeth [facility] PHOSPHORUS 2025-05-30 05:05:00 Elizabeth [facility] CBC W/PLT COUNT & AUTO DIFFERENTIAL 2025-05-30 05:05:00 Albayar, [facility] POCT-GLUCOSE METER 2025-05-29 19:36:00 Ole, [facility] POCT-GLUCOSE METER 2025-05-29 17:51:00 Ole, [facility] CT CHEST WITH IV CONTRAST 2025-05-29 15:53:56 Calvin [facility] CT ABDOMEN/PELVIS WITH IV CONTRAST 2025-05-29 15:53:32 [facility] BASIC METABOLIC PANEL 2025-05-29 14:05:00 Ole, [facility] POCT-GLUCOSE METER 2025-05-29 11:27:00 Ole, [facility] POCT-GLUCOSE METER 2025-05-29 07:39:00 Ole, [facility] CYSTICEROSIS ANTIBODY, IGG 2025-05-29 04:58:00 [facility] HISTOPLASMA AB BY COMPLEMENT FIXATION 2025-05-29 04:58:00 [facility] BLASTOMYCES ANTIBODY 2025-05-29 04:58:00 [facility] BRUCELLA ABORTUS ANTIBODIES (IGG, IGM) 2025-05-29 04:58[facility] & AUTO DIFFERENTIAL 2025-05-29 04:58:00 Albayar [facility] MAGNESIUM 2025-05-29 04:58:00 Albayar [facility] PHOSPHORUS 2025-05-29 04:58:00 Albayar [facility] CBC W/PLT COUNT & AUTO DIFFERENTIAL 2025-05-29 04:58:00 Albayar, [facility] POCT-GLUCOSE METER 2025-05-28 19:59:00 Ole, [facility] POCT-GLUCOSE METER 2025-05-28 16:34:00 Ole, [facility] POCT-GLUCOSE METER 2025-05-28 12:55:00 Ole, Nyla [facility] POCT-GLUCOSE METER 2025-05-28 07:20:00 Ole, Nyla [facility] POCT-GLUCOSE METER 2025-05-27 20:35:00 Ole, Nyla [facility] PROTHROMBIN TIME/INR 2025-05-27 16:53:00 Calvin Shimon [facility] POCT-GLUCOSE METER 2025-05-27 16:48:00 Ole, Nyla [facility] POCT-GLUCOSE METER 2025-05-27 12:57:00 Ole, Nyla [facility] POCT-GLUCOSE METER 2025-05-27 07:42:00 Ole, Nyla [facility] MAGNESIUM 2025-05-27 07:23:00 Albayar, [facility] PHOSPHORUS 2025-05-27 07:23:00 Albmanolor, [facility] CBC W/PLT COUNT & AUTO DIFFERENTIAL 2025-05-27 07:23:00 Albayar, [facility] CBC W/PLT COUNT & AUTO DIFFERENTIAL 2025-05-27 07:23:00 Elizabeth [facility] PROCEDURE, IN NON-OPERATING ROOM SETTING 2025-05-26 22:00:00 Surgeon Steve [facility] POCT-GLUCOSE METER 2025-05-26 21:51:00 Ole, Nyla [facility] POCT-GLUCOSE METER 2025-05-26 19:37:00 Ole, Nyla [facility] MR BRAIN WITH & WITHOUT IV CONTRAST 2025-05-26 19:34:32 Ole, [facility] MR ORBIT FACE NECK WITH & WITHOUT IV CONTRAST 2025-05-26 19:34:12 Ole, [facility] MR CERVICAL SPINE WITH & WITHOUT IV CONTRAST 2025-05-26 19:32:32 Ole, [facility] MR THORACIC SPINE WITH & WITHOUT IV CONTRAST 2025-05-26 17:00:00 Ole, Nyla [facility] POCT-GLUCOSE METER 2025-05-26 11:39:00 Ole, N[facility] POCT-GLUCOSE METER 2025-05-26 08:50:00 Ole, Nyla [facility] CBC W/PLT COUNT & AUTO DIFFERENTIAL 2025-05-26 05:39:00 Albayar, [facility] MAGNESIUM 2025-05-26 05:39:00 Albayar, [facility] PHOSPHORUS 2025-05-26 05:39:00 Albayar, [facility] CBC W/PLT COUNT & AUTO DIFFERENTIAL 2025-05-26 05:39:00 Albayar, [facility] POCT-GLUCOSE METER 2025-05-25 21:11:00 Ole, Nyla [facility] POCT-GLUCOSE METER 2025-05-25 16:21:00 Ole, Nyla [facility] POCT-GLUCOSE METER 2025-05-25 11:18:00 Ole, Nyla [facility] POCT-GLUCOSE METER 2025-05-25 07:56:00 Ole, Nyla [facility] CBC W/PLT COUNT & AUTO DIFFERENTIAL 2025-05-25 04:32:00 Albayar, [facility] MAGNESIUM 2025-05-25 04:32:00 Albayar, [facility] PHOSPHORUS 2025-05-25 04:32:00 Albayar, [facility] CBC W/PLT COUNT & AUTO DIFFERENTIAL 2025-05-25 04:32:00 Albayar, [facility] POCT-GLUCOSE METER 2025-05-24 21:36:00 Ole, N[facility] POCT-GLUCOSE METER 2025-05-24 16:52:00 Ole, Nyla [facility] MISCELLANEOUS LAB ORDER 2025-05-24 11:55:00 Calvin [facility] POCT-GLUCOSE METER 2025-05-24 11:38:00 [facility] 2025-05-24 07:35:00 Ole, [facility] CBC W/PLT COUNT & AUTO DIFFERENTIAL 2025-05-24 04:48:00 Albayalacy, [facility] MAGNESIUM 2025-05-24 04:48:00 Albayalacy, [facility] PHOSPHORUS 2025-05-24 04:48:00 Albayar, [facility] CBC W/PLT COUNT & AUTO DIFFERENTIAL 2025-05-24 04:48:00 Albjerrell, [facility] MISCELLANEOUS LAB ORDER 2025-05-24 04:47:00 Sammy Simpson [facility] POCT-GLUCOSE METER 2025-05-23 22:46:00 Ole, [facility] POCT-GLUCOSE METER 2025-05-23 16:34:00 Ole, [facility] URINALYSIS W/ REFLEX URINE CULTURE 2025-05-23 12:58:00 Ole, [facility] POCT-GLUCOSE METER 2025-05-23 11:22:00 Ole, [facility] XR CHEST 1 VIEW PORTABLE / BEDSIDE 2025-05-23 10:30:00 Ole, [facility] POCT-GLUCOSE METER 2025-05-23 07:23:00 Ole, [facility] CBC W/PLT COUNT & AUTO DIFFERENTIAL 2025-05-23 05:08:00 Albayar, [facility] MAGNESIUM 2025-05-23 05:08:00 Albayar, [facility] PHOSPHORUS 2025-05-23 05:08:00 Albayar, [facility] CBC W/PLT COUNT & AUTO DIFFERENTIAL 2025-05-23 05:08:00 Albayar, [facility] POCT-GLUCOSE METER 2025-05-22 19:21:00 Ole, [facility] POCT-GLUCOSE METER 2025-05-22 16:42:00 Ole, [facility] POCT-GLUCOSE METER 2025-05-22 11:33:00 Ole, Nyla [facility] POCT-GLUCOSE METER 2025-05-22 07:25:00 Ole, Nyla [facility] CBC W/PLT COUNT & AUTO DIFFERENTIAL 2025-05-22 04:52:00 Albayar, [facility] MAGNESIUM 2025-05-22 04:52:00 Albayar, [facility] PHOSPHORUS 2025-05-22 04:52:00 Albayar, [facility] CBC W/PLT COUNT & AUTO DIFFERENTIAL 2025-05-22 04:52:00 Albjerrell, [facility] (CELLAVISION MANUAL DIFF) 2025-05-22 04:52:00 Albayar, [facility] POCT-GLUCOSE METER 2025-05-21 19:53:00 Ole, [facility] POCT-GLUCOSE METER 2025-05-21 17:37:00 Ole, [facility] POCT-GLUCOSE METER 2025-05-21 08:45:00 Ole, [facility] CBC W/PLT COUNT & AUTO DIFFERENTIAL 2025-05-21 05:20:00 Albayar, [facility] MAGNESIUM 2025-05-21 05:20:00 Albayar, [facility] PHOSPHORUS 2025-05-21 05:20:00 Albayar, [facility] CBC W/PLT COUNT & AUTO DIFFERENTIAL 2025-05-21 05:20:00 Albayar, [facility] POCT-GLUCOSE METER 2025-05-20 19:17:00 Morris Dao [facility] POCT-GLUCOSE METER 2025-05-20 17:30:00 Morris Dao [facility] POCT-GLUCOSE METER 2025-05-20 13:06:00 Morris Dao [facility] POCT-GLUCOSE METER 2025-05-20 07:43:00 Morris Dao [facility] CBC W/PLT COUNT & AUTO DIFFERENTIAL 2025-05-20 06:19:00 Elizabeth [facility] MAGNESIUM 2025-05-20 06:19:00 Albjerrell [facility] PHOSPHORUS 2025-05-20 06:19:00 Albmanolor [facility] BASIC METABOLIC PANEL 2025-05-20 06:19:00 Morris Fleming [facility] CBC W/PLT COUNT & AUTO DIFFERENTIAL 2025-05-20 06:19:00 Albjerrell [facility] POCT-GLUCOSE METER 2025-05-19 21:18:00 Morris Dao [facility] POCT-GLUCOSE METER 2025-05-19 16:43:00 Morris Dao [facility] POCT-GLUCOSE METER 2025-05-19 12:23:00 Morris Dao [facility] POCT-GLUCOSE METER 2025-05-19 08:39:00 Morris Dao [facility] CBC W/PLT COUNT & AUTO DIFFERENTIAL 2025-05-19 05:07:00 Albjerrell [facility] MAGNESIUM 2025-05-19 05:07:00 Albjerrell [facility] PHOSPHORUS 2025-05-19 05:07:00 Albayar [facility] CBC W/PLT COUNT & AUTO DIFFERENTIAL 2025-05-19 05:07:00 Albjerrell [facility] POCT-GLUCOSE METER 2025-05-18 20:08:00 Morris Dao [facility] POCT-GLUCOSE METER 2025-05-18 13:13:00 Morris Dao [facility] POCT-GLUCOSE METER 2025-05-18 07:36:00 Morris Dao [facility] CBC W/PLT COUNT & AUTO DIFFERENTIAL 2025-05-18 04:36:00 Albayar, [facility] MAGNESIUM 2025-05-18 04:36:00 Albayar, [facility] PHOSPHORUS 2025-05-18 04:36:00 Albayar, [facility] CBC W/PLT COUNT & AUTO DIFFERENTIAL 2025-05-18 04:36:00 Albayar, [facility] POCT-GLUCOSE METER 2025-05-17 21:11:00 Morris Dao [facility] POCT-GLUCOSE METER 2025-05-17 16:55:00 Morris Dao [facility] POCT-GLUCOSE METER 2025-05-17 11:54:00 Morris Dao [facility] POCT-GLUCOSE METER 2025-05-17 07:20:00 Morris Dao [facility] CBC W/PLT COUNT & AUTO DIFFERENTIAL 2025-05-17 03:44:00 Albayar, [facility] MAGNESIUM 2025-05-17 03:44:00 Albayar, [facility] PHOSPHORUS 2025-05-17 03:44:00 Albayar, [facility] CBC W/PLT COUNT & AUTO DIFFERENTIAL 2025-05-17 03:44:00 Albayar, [facility] POCT-GLUCOSE METER 2025-05-16 19:35:00 Theresa Freeman [facility] POCT-GLUCOSE METER 2025-05-16 17:54:00 L[facility] POCT-GLUCOSE METER 2025-05-16 11:25:00 Theresa Freeman [facility] POCT-GLUCOSE METER 2025-05-16 10:41:00 L[facility] SARS-COV2/RT-PCR ([facility]) 2025-05-16 10:38:00 Eze Pulido [facility] ECHO W CONTRAST & DOPPLER 2025-05-16 09:48:21 Fernando Eason [facility] POCT-GLUCOSE METER 2025-05-16 06:11:00 Demarco Breen [facility] MAGNESIUM 2025-05-16 03:22:00 Albjerrell [facility] PHOSPHORUS 2025-05-16 03:22:00 Elizabeth [facility] CBC W/PLT COUNT & AUTO DIFFERENTIAL 2025-05-16 03:22:00 Fernando Eason [facility] CBC W/PLT COUNT & AUTO DIFFERENTIAL 2025-05-16 03:22:00 Elizabeth [facility] BASIC METABOLIC PANEL 2025-05-16 03:22:00 Chante Eason [facility] POCT-GLUCOSE METER 2025-05-15 22:25:00 Demarco Breen [facility] POCT-GLUCOSE METER 2025-05-15 17:19:00 Demarco Breen [facility] CBC W/PLT COUNT & AUTO DIFFERENTIAL 2025-05-15 03:14:00 Fernando Eason [facility] CBC W/PLT COUNT & AUTO DIFFERENTIAL 2025-05-15 03:14:00 Elizabeth [facility] BASIC METABOLIC PANEL 2025-05-15 03:14:00 Chante Eason [facility] MAGNESIUM 2025-05-15 03:14:00 Elizabeth [facility] PHOSPHORUS 2025-05-15 03:14:00 Elizabeth [facility] MR BRAIN WITHOUT IV CONTRAST 2025-05-14 19:03:00 [facility] URINALYSIS WITHOUT MICROSCOPIC 2025-05-14 16:35:00 Fernando Eason [facility] ECG 12-LEAD 2025-05-14 08:43:55 Unknown, Hl7 [facility] ECG 12-LEAD 2025-05-14 08:43:55 Fernando Eason [facility] ECG 12-LEAD 2025-05-14 08:43:55 Unknown, Hl7 Doctor [facility] CBC W/PLT COUNT & AUTO DIFFERENTIAL 2025-05-14 08:29:00 Fernando Eason [facility] CBC W/PLT COUNT & AUTO DIFFERENTIAL 2025-05-14 08:29:00 Elizabeth [facility] BASIC METABOLIC PANEL 2025-05-14 08:29:00 Chante Eason [facility] MAGNESIUM 2025-05-14 08:29:00 Elizabeth [facility] PHOSPHORUS 2025-05-14 08:29:00 Elizabeth [facility] LUPUS ANTICOAGULANT SCREEN WITH REFLEX TO CONFIRMATORY 2025-05-14 08:29:00 Fernando Eason [facility] APTT 2025-05-14 08:29:00 Fernando Eason [facility] HIGH SENSITIVITY TROPONIN I 2025-05-14 08:29:00 Fernando Eason [facility] B-TYPE NATRIURETIC FACTOR (BNP) 2025-05-14 08:29:00 Fernando Eason [facility] HEMOGLOBIN A1C 2025-05-14 08:29:00 Fernando Eason [facility] LIPID PANEL 2025-05-14 08:29:00 Fernando Eason [facility] TSH/FREE T4 IF INDICATED 2025-05-14 08:29:00 Kole Eason [facility] VITAMIN B12 2025-05-14 08:29:00 Fernando Eason [facility] RPR 2025-05-14 08:29:00 Fernando Eason [facility] HC LAB HIV-1 AG W/HIV-1&2 AB 2025-05-14 08:29:00 Fernando Eason [facility] C-REACTIVE PROTEIN 2025-05-14 08:29:00 Fernando Eason [facility] BETA-2 GLYCOPROTEIN ANTIBODIES 2025-05-14 08:29:00 Fernando Eason [facility] FACTOR 5 LEIDEN PCR (THROMBOTIC RISK) 2025-05-14 08:29:00 Fernando Eason [facility] PHOSPHATIDYLSERINE/PROTHRO MBIN (PS/PT) ANTIBODIES (IGG, IGM) (QUEST) 2025-05-14 08:29:00 Eason, [facility] CARDIOLIPIN ANTIBODIES, IGG AND IGM 2025-05-14 08:29:00 Yumi [facility] HC LAB PROTHROMBIN FACTOR II 2025-05-14 08:29:00 Yumi [facility] ANTITHROMBIN III 2025-05-14 08:29:00 Yumi [facility] PROTEIN S ACTIVITY 2025-05-14 08:29:00 Yumi [facility] PROTEIN C ACTIVITY 2025-05-14 08:29:00 Yumi [facility] HOMOCYSTEINE 2025-05-14 08:29:00 Yumi [facility] FIBRINOGEN 2025-05-14 08:29:00 Yumi [facility] PHOSPHATIDYLSERINE/PROTHRO MBIN (PS/PT) ANTIBODY (IGM) (QUEST) 2025-05-14 08:29:00 Yumi [facility] T4, FREE 2025-05-14 08:29:00 Yumi [facility] SYQU-3-WZGIWRNELIIO I IGG 2025-05-14 08:29:00 Yumi [facility] BWEC-0-XGPYWPOUOWWC I IGM 2025-05-14 08:29:00 Yumi [facility] DCXY-4-GYZPIZHYIPAD I IGA 2025-05-14 08:29:00 Yumi [facility] EKG-SCANNED 2025-05-14 00:00:00 Provider, Carter Scanning [facility] POCT GLUCOSE (AUTOMATED) 2025-03-30 21:57:00 Ruth Hinojosa [facility] POCT GLUCOSE (AUTOMATED) 2025-03-30 21:57:00 Ruth Hinojosa [facility] ACTIVATED PARTIAL THRMPLAS ELAINE 2025-03-30 21:28:00 Melisa Maynard [facility] ACTIVATED PARTIAL THRMPLAS ELAINE 2025-03-30 21:28:00 Melisa Maynard [facility] EKG (SCANNED DOCUMENTS) 2025-03-30 18:07:26 Doct or Unassigned, [place] [facility] EKG (SCANNED DOCUMENTS) 2025-03-30 18:07:26 Doct or Unassigned, [place] [facility] CARDIAC CATHETERIZATION 2025-03-30 17:46:37 Kavitha velarde jesus Elisa Kaciealexa [facility] CARDIAC CATHETERIZATION 2025-03-30 17:46:37 Ruth Fox [facility] POCT GLUCOSE (AUTOMATED) 2025-03-30 13:57:00 Ruth Hinojosa [facility] POCT GLUCOSE (AUTOMATED) 2025-03-30 13:57:00 Ruth Hinojosa [facility] MAGNESIUM 2025-03-30 10:29:00 Geovani Sawyer [facility] BASIC METABOLIC PANEL (NA, K, CL, CO2, GLUCOSE, BUN, CREATININE, CA) 2025-03-30 10:29[facility] 2025-03-30 10:29:00 [facility]25-03-30 10:29:00 Geovani Sawyer [facility] BASIC METABOLIC PANEL (NA, K, CL, CO2, GLUCOSE, BUN, CREATININE, CA) 2025-03-30 10:29:00 [facility] 2025-03-30 10:29:00 Geovani Sawyer [facility] TROPONIN I 2025-03-30 03:35:00 Mickey Calvillo [facility] INFLUENZA A/B RSV COVID NAAT 2025-03-30 03:35:00 Mickey Calvillo [facility] TROPONIN I 2025-03-30 03:35:00 Mickey Calvillo [facility] INFLUENZA A/B RSV COVID NAAT 2025-03-30 03:35:00 Mickey Calvillo [facility] EKG-12 LEAD 2025-03-30 03:27:24 Doctor Unass igned, [place] [facility] POCT GLUCOSE (AUTOMATED) 2025-03-30 01:54:00 Ruth Hinojosa [facility] POCT GLUCOSE (AUTOMATED) 2025-03-30 01:54:00 Ruth Hinojosa [facility] POCT GLUCOSE (AUTOMATED) 2025-03-29 21:56[facility]00 [facility] 2025-03-29 21:56:00 Abel Spann [facility] TROPONIN I 2025-03-29 18:24[facility]25-03-29 18:24:00 Bryson Cohen [facility] POCT GLUCOSE (AUTOMATED) 2025-03-29 16:38:00 Abel Spann [facility] POCT GLUCOSE (AUTOMATED) 2025-03-29 16:38:00 Abel Spann [facility] POCT GLUCOSE (AUTOMATED) 2025-03-29 12:32:00 Abel Spann [facility] POCT GLUCOSE (AUTOMATED) 2025-03-29 12:32:00 Abel Spann [facility] MAGNESIUM 2025-03-29 09:25:00 Feliz Spann [facility] TROPONIN I 2025-03-29 09:25:00 Bryson Cohen [facility] BASIC METABOLIC PANEL (NA, K, CL, CO2, GLUCOSE, BUN, CREATININE, CA) 2025-03-29 09:25:00 Feliz Spann [facility] LIPID PANEL ([id number])(TOTAL CHOLESTEROL, TRIGLYCERIDES, HDL) 2025-03-29 09:25:00 Feliz Spann [facility] CBC WITH DIFF 2025-03-29 09:25:00 Feliz Spann [facility] LOW-DENSITY LIPOPROTEIN, DIRECT 2025-03-29 09:25:00 Feliz Spann [facility] MAGNESIUM 2025-03-29 09:25:00 Feliz Spann [facility] TROPONIN I 2025-03-29 09:25:00 Bryson Cohen [facility] BASIC METABOLIC PANEL (NA, K, CL, CO2, GLUCOSE, BUN, CREATININE, CA) 2025-03-29 09:25:00 Zana [facility] LIPID PANEL ([id number])(TOTAL CHOLESTEROL, TRIGLYCERIDES, HDL) 2025-03-29 09:25:00 Feliz Spann [facility] CBC WITH DIFF 2025-03-29 09:25:00 Feliz Spann [facility] LOW-DENSITY LIPOPROTEIN, DIRECT 2025-03-29 09:25:00 Feliz Spann [facility] POCT GLUCOSE (AUTOMATED) 2025-03-29 01:24:00 Abel [facility] POCT GLUCOSE (AUTOMATED) 2025-03-29 01:24:00 Abel [facility] POCT GLUCOSE (AUTOMATED) 2025-03-28 21:42:00 Abel [facility] POCT GLUCOSE (AUTOMATED) 2025-03-28 21:42:00 Abel [facility] TRANSTHORACIC ECHO (TTE) COMPLETE 2025-03-28 17:40:00 Zana [facility] TRANSTHORACIC ECHO (TTE) COMPLETE 2025-03-28 17:40:00 Zana [facility] POCT GLUCOSE (AUTOMATED) 2025-03-28 16:51:00 Abel [facility] POCT GLUCOSE (AUTOMATED) 2025-03-28 16:51:00 Abel [facility] TROPONIN I 2025-03-28 16:04:00 Feliz Spann [facility] LIPID PANEL ([id number])(TOTAL CHOLESTEROL, TRIGLYCERIDES, HDL) 2025-03-28 16:04:00 [facility]25-03-28 16:04:00 Feliz Spann [facility] LIPID PANEL ([id number])(TOTAL CHOLESTEROL, TRIGLYCERIDES, HDL) 2025-03-28 16:04:00 [facility] 2025-03-28 12:54:00 Benjamin Ashford [facility] XR CHEST 1 VW 2025-03-28 12:54:00 Benjamin [facility]ford [facility] LIPASE 2025-03-28 12:31:00 Benjamin Ashford [facility] TROPONIN I 2025-03-28 12:31:00 [facility] COMP. METABOLIC PANEL ([id number]) 2025-03-28 12:31:00 [facility]FF 2025-03-28 12:31:00 Dejon [facility] GLYCOSYLATED HEMOGLOBIN (A1C) 2025-03-28 12:31:00 Feliz Spann [facility] LIPASE 2025-03-28 12:31:00 Benjamin Ashford [facility] TROPONIN I 2025-03-28 12:31:00 Benjamin Ashford [facility] COMP. METABOLIC PANEL ([id number]) 2025-03-28 12:31:00 [facility] WITH DIFF 2025-03-28 12:31:00 [facility] GLYCOSYLATED HEMOGLOBIN (A1C) 2025-03-28 12:31:00 Feliz Spann [facility] HB ECG ROUTINE & RHYTHM STRIP 2025-03-28 12:08:15 [facility]OUTINE & RHYTHM STRIP 2025-03-28 12:08:15 [facility] URINALYSIS 2024-02-04 18:16:00 Babs Bustamante [facility] CT ABDOMEN PELVIS W CONTRAST 2024-02-04 16:52:[facility] 2024-02-04 16:00:00 Babs Bustamante [facility] COMP. METABOLIC PANEL ([id number]) 2024-02-04 16:00:00 [facility]FF 2024-02-04 16:00:[address] [facility] FOR [facility]AG[facility]IS AND TREATMENT 2023-12-28 08:06:27 Doctor Unassigned, [place] [facility] EKG-12 LEAD 2023-11-06 08:26:13 SheilaNidia dyere [facility] LIPASE 2023-11-06 06:15:00 SheilaNidia Unive [facility] MAGNESIUM 2023-11-06 06:15:00 SheilaNidia dyer Unive [facility] COMP. METABOLIC PANEL ([id number]) 2023-11-06 06:15:00 Nidia Sosa [facility] CBC WITH DIFF 2023-11-06 06:15:00 SheilaNidia dyer [facility] URINALYSIS 2023-11-06 06:15:00 [facility]Nidia [facility] CONSENT/REFUSAL FOR DIAGNOSIS AND TREATMENT 2023-11-06 05:40:44 Doctor Unassigned, [place] [facility] CT ABDOMEN PELVIS W CONTRAST 2023-11-01 08:32:40 Jose Francisco Walters [facility] LIPASE 2023-11-01 05:45:00 Jose Francisco Walters [facility] COMP. METABOLIC PANEL ([id number]) 2023-11-01 05:45:00 Jose Francisco Walters [facility] CBC WITH DIFF 2023-11-01 05:45:00 Jose [facility] URINALYSIS 2023-11-01 05:45:00 Jose Francisco Walters [facility] POCT GLUCOSE (AUTOMATED) 2023-11-01 05:41:00 Lena Walters [facility] CONSENT/REFUSAL FOR DIAGNOSIS AND TREATMENT 2023-11-01 05:29:45 Doctor Unassigned, [place] [facility] CT ABDOMEN PELVIS W CONTRAST 2023-10-23 07:06:44 Chapito Contreras [facility] LIPASE 2023-10-23 05:50:00 Chapito Contreras [facility] COMP. METABOLIC PANEL ([id number]) 2023-10-23 05:50:00 Chapito Contreras [facility] CBC WITH DIFF 2023-10-23 05:50:00 Chapito Contreras [facility] URINALYSIS 2023-10-23 05:50:00 Chapito Contreras [facility] CONSENT/REFUSAL FOR DIAGNOSIS AND TREATMENT 2023-10-23 05:34:08 Doctor Unassigned, [place] [facility] URINALYSIS 2023-09-26 06:12:00 [facility] 2023-09-26 05:12:00 Jose [facility] HEPATIC FUNCTION PANEL ([id number]) (ALB,T.PRO,BILI T,BU/BC,ALT,AST,ALK PHOS) 2023-09-26 05:12:00 Jose [facility] BASIC METABOLIC PANEL (NA, K, CL, CO2, GLUCOSE, BUN, CREATININE, CA) 2023-09-26 05:12:00 Jose [facility] CBC WITH DIFF 2023-09-26 05:12:00 Jose [facility] NOTICE OF PRIVACY PRACTICES 2023-09-26 04:50:48 Doctor Unassigned, [place] [facility] CONSENT/REFUSAL FOR DIAGNOSIS AND TREATMENT 2023-09-26 04:50:08 Doctor Unassigned, [place] [facility] CT CHEST PULMONARY ANGIOGRAM 2023-08-24 08:02:29 Patrick Steiner [facility] XR CHEST 1 VW 2023-08-24 04:38:16 [facility] TROPONIN I 2023-08-24 04:29:00 Patrick Steiner [facility] COMP. METABOLIC PANEL ([id number]) 2023-08-24 04:29:00 Patrick Steiner [facility] CBC WITH DIFF 2023-08-24 04:29:00 Patrick [facility] CONSENT/REFUSAL FOR DIAGNOSIS AND TREATMENT 2023-08-24 03:41:11 Doctor Unassigned, [place] [facility] LIPASE 2023-07-07 09:22:00 Yar[place], [facility] TROPONIN I 2023-07-07 09:22:00 [facility]. METABOLIC PANEL ([id number]) 2023-07-07 09:22:00 Chapito Contreras [facility] CBC WITH DIFF 2023-07-07 09:22:00 [facility] 2023-07-07 09:22:00 Chapito Contreras [facility] CONSENT/REFUSAL FOR DIAGNOSIS AND TREATMENT 2023-07-07 08:49:51 Doctor Unassigned, [place] [facility] POCT GLUCOSE (AUTOMATED) 2023-05-26 02:17:00 Nidia Sosa [facility] URINALYSIS 2023-05-26 01:24:00 Nidia Sosa [facility] POCT GLUCOSE (AUTOMATED) 2023-05-26 01:22:00 Nidia Sosa [facility] TROPONIN I 2023-05-26 00:54:00 Nidia Sosa [facility] COVID-19 (ID NOW RAPID TESTING) 2023-05-26 00:54:00 Nidia Sosa [facility] ASSIGNMENT OF BENEFITS 2023-05-26 00:29:59 Docto r Unassigned, [place] [facility] XR CHEST 1 VW 2023-05-25 22:41:21 Nidia Sosa [facility] LIPASE 2023-05-25 22:33:00 Nidia Sosa [facility] MAGNESIUM 2023-05-25 22:33:00 Nidia Sosa [facility] TROPONIN I 2023-05-25 22:33:00 Nidia Sosa [facility] COMP. METABOLIC PANEL ([id number]) 2023-05-25 22:33:00 Nidia Sosa [facility] CBC WITH DIFF 2023-05-25 22:33:00 Nidia Sosa [facility] N-TERMINAL PRO-BNP 2023-05-25 22:33:00 Nidia Sosa [facility] CONSENT/REFUSAL FOR DIAGNOSIS AND TREATMENT 2023-05-25 22:07:05 Doctor Unassigned, [place] [facility] COVID-19 (ID NOW RAPID TESTING) 2023-02-20 23:30:00 Sofia Padilla [facility] CONSENT/REFUSAL FOR DIAGNOSIS AND TREATMENT 2023-02-20 22:54:00 Doctor Unassigned, [place] [facility] CT ABDOMEN PELVIS W CONTRAST 2022-12-29 08:28:18 Chapito Contreras [facility] LIPASE 2022-12-29 07:11:00 Chapito Contreras [facility] COMP. METABOLIC PANEL ([id number]) 2022-12-29 07:11:00 Chapito Contreras [facility] CBC WITH DIFF 2022-12-29 07:11:00 Chapito Contreras [facility] URINALYSIS 2022-12-29 07:11:00 Chapito Contreras [facility] CONSENT/REFUSAL FOR DIAGNOSIS AND TREATMENT 2022-12-29 06:24:27 Doctor Unassigned, [place] [facility] CONSENT/REFUSAL FOR DIAGNOSIS AND TREATMENT 2022-11-21 08:05:19 Doctor Unassigned, [place] [facility] RAPID STREP SCREEN FOR GROUP A 2022-10-29 07:36:00 Marie Morales [facility] CONSENT/REFUSAL FOR DIAGNOSIS AND TREATMENT 2022-10-29 07:23:03 Doctor Unassigned, [place] [facility] CONSENT/REFUSAL FOR DIAGNOSIS AND TREATMENT 2022-06-02 04:34:17 Doctor Unassigned, [place] [facility] FREE T4 2022-05-28 16:06:00 Saqib [facility] THYROID STIMULATING HORMONE 2022-05-28 16:06:00 Saqib Gary [facility] COMP. METABOLIC PANEL ([id number]) 2022-05-28 16:06:00 Saqib Gary [facility] CBC WITH DIFF 2022-05-28 16:06:00 Saqib Gary [facility] FREE T3 2022-05-28 16:06:00 Saqib Gary [facility] CONSENT/REFUSAL FOR DIAGNOSIS AND TREATMENT 2022-05-28 14:55:38 Doctor Unassigned, [place] [facility] CT ABDOMEN PELVIS W CONTRAST 2022-05-06 06:06:56 Nidia Sosa [facility] LIPASE 2022-05-06 05:17:00 Nidia Sosa [facility] MAGNESIUM 2022-05-06 05:17:00 Nidia [facility]osa [facility] TROPONIN I 2022-05-06 05:17:00 Nidia [facility]osa [facility] COMP. METABOLIC PANEL ([id number]) 2022-05-06 05:17:00 Nidia Sosa [facility] CBC WITH DIFF 2022-05-06 05:17:00 Nidia Sosa [facility] URINALYSIS 2022-05-06 05:17:00 Nidia Sosa [facility] RAPID INFLUENZA A/B 2022-05-06 03:48:00 Nidia Sosa [facility] COVID-19 (ID NOW RAPID TESTING) 2022-05-06 03:48:00 Nidia Sosa Haily [facility] CONSENT/REFUSAL FOR DIAGNOSIS AND TREATMENT 2022-05-06 03:22:49 Doctor Unassigned, [place] [facility] COMP. METABOLIC PANEL ([id number]) 2022-05-01 12:42:00 Saqib Gary [facility] CBC WITH DIFF 2022-05-01 12:42:00 Saqib Gary [facility] CONSENT/REFUSAL FOR DIAGNOSIS AND TREATMENT 2022-05-01 12:23:44 Doctor Unassigned, [place] [facility] URINALYSIS 2022-02-08 06:27:00 Benjamin Ashford [facility] URINE DRUG (IMMUNOASSAY) - COMPREHENSIVE DRUG SCREEN W/O REFLEX 2022-02-08 06:27:00 Benjamin Ashford [facility] LIPASE 2022-02-08 06:15:00 [facility] TROPONIN I 2022-02-08 06:15:00 [facility] COMP. METABOLIC PANEL ([id number]) 2022-02-08 06:15:00 Benjamin Ashford [facility] ETHANOL 2022-02-08 06:15:00 Benjamin Ashford [facility] CBC WITH DIFF 2022-02-08 06:15:00 Benjamin Ashford [facility] PROTHROMBIN TIME / INR 2022-02-08 06:15:00 Jeremy Ashford [facility] ACTIVATED PARTIAL THRMPLAS ELAINE 2022-02-08 06:15:00 Benjamin Ashford [facility] N-TERMINAL PRO-BNP 2022-02-08 06:15:00 Benjamin Ashford [facility] NOTICE OF PRIVACY PRACTICES 2022-02-08 06:01:50 Doctor Unassigned, [place] [facility] CONSENT/REFUSAL FOR DIAGNOSIS AND TREATMENT 2022-02-08 05:59:20 Doctor Unassigned, [place] [facility] CT ABDOMEN PELVIS W CONTRAST 2021-10-15 00:40:39 Marie Morales [facility] LIPASE 2021-10-15 00:26:00 [facility] 2021-10-15 00:26:00 Marie Morales Un [facility] COMP. METABOLIC PANEL ([id number]) 2021-10-15 00:26:00 Marie Morales [facility] CBC WITH DIFF 2021-10-15 00:26:00 [facility] NOTICE OF PRIVACY PRACTICES 2021-10-14 22:18:20 Doctor Unassigned, [place] [facility] CONSENT/REFUSAL FOR DIAGNOSIS AND TREATMENT 2021-10-14 22:17:56 Doctor Unassigned, [place] [facility] CT ABDOMEN PELVIS W CONTRAST 2021-03-15 04:54:23 Chapito Contreras [facility] COVID-19 (ID NOW RAPID TESTING) 2021-03-15 03:34:00 Chapito Contreras [facility] URINALYSIS 2021-03-15 03:16:00 Chapito Contreras [facility] COMP. METABOLIC PANEL ([id number]) 2021-03-15 03:11:00 Chapito Contreras [facility] CBC WITH DIFF 2021-03-15 03:11:00 Chapito Contreras [facility] CONSENT/REFUSAL FOR DIAGNOSIS AND TREATMENT 2021-03-15 02:38:38 Doctor Unassigned, [place] [facility] LIPASE 2020-09-08 23:14:00 Gary Saqib [facility] COMP. METABOLIC PANEL ([id number]) 2020-09-08 23:14:00 Saqib Gary [facility] CBC WITH DIFF 2020-09-08 23:14:00 [facility] CONSENT/REFUSAL FOR DIAGNOSIS AND TREATMENT 2020-09-08 22:38:49 Doctor Unassigned, [place] [facility] CT ABDOMEN PELVIS W CONTRAST 2020-09-06 17:05:33 Nidia Sosa [facility] LACTIC ACID WHOLE BLOOD 2020-09-06 16:31:00 Nidia Sosa Haily [facility] LIPASE 2020-09-06 16:11:00 Nidia Sosa [facility] MAGNESIUM 2020-09-06 16:11:00 Nidia Sosa [facility] COMP. METABOLIC PANEL ([id number]) 2020-09-06 16:11:00 Nidia Sosa [facility] CBC WITH DIFF 2020-09-06 16:11:00 Nidia Sosa [facility] NOTICE OF PRIVACY PRACTICES 2020-09-06 15:30:39 Doctor Unassigned, [place] [facility] CONSENT/REFUSAL FOR DIAGNOSIS AND TREATMENT 2020-09-06 15:30:28 Doctor Unassigned, [place] [facility] COMP. METABOLIC PANEL ([id number]) 2020-08-30 08:39:00 Babs Bustamante [facility] CBC WITH DIFF 2020-08-30 08:39:00 Babs Bustamante [facility] US ABDOMEN COMPLETE 2020-08-28 18:11:06 Patrick No [facility] ECHO ROUTINE W/DOPPLER COLOR 2020-08-28 16:34:45 Oneal [facility] HEPATIC FUNCTION PANEL ([id number]) (ALB,T.PRO,BILI T,BU/BC,ALT,AST,ALK PHOS) 2020-08-28 10:16:00 Favio Chang [facility] BASIC METABOLIC PANEL (NA, K, CL, CO2, GLUCOSE, BUN, CREATININE, CA) 2020-08-28 10:16:00 Oneal [facility] TROPONIN I 2020-08-27 18:11:00 Oneal [facility] POCT GLUCOSE (AUTOMATED) 2020-08-27 18:02:00 Clau No [facility] POCT GLUCOSE (AUTOMATED) 2020-08-27 13:49:00 Clau No [facility] TROPONIN I 2020-08-27 11:35:[address] [facility] [address] ABDOMEN PELVIS W WO CONTRAST 2020-08-27 07:38:49 Oneal [facility] COVID-19 (ID NOW RAPID TESTING) 2020-08-27 06:21:00 Benjamin Ashford [facility] URINALYSIS 2020-08-27 06:20:00 eBnjamin Ashford [facility] ADC / LCC - DRUG SCREEN TRIAGE 2020-08-27 06:20:00 Benjamin Ashford [facility] XR CHEST 1 VW 2020-08-27 06:05:42 Benjamin Ashford [facility] LIPASE 2020-08-27 05:58:00 [facility] TROPONIN I 2020-08-27 05:58:00 [facility] THYROID STIMULATING HORMONE 2020-08-27 05:58:00 Oneal [facility] HEPATIC FUNCTION PANEL ([id number]) (ALB,T.PRO,BILI T,BU/BC,ALT,AST,ALK PHOS) 2020-08-27 05:58:00 Benjamin Ashford [facility] BASIC METABOLIC PANEL (NA, K, CL, CO2, GLUCOSE, BUN, CREATININE, CA) 2020-08-27 05:58:00 Benjamin Ashford [facility] LIPID PANEL ([id number])(TOTAL CHOLESTEROL, TRIGLYCERIDES, HDL) 2020-08-27 05:58:00 Gricelda No [facility] ETHANOL 2020-08-27 05:58:00 Benjamin Ashford [facility] CBC WITH DIFF 2020-08-27 05:58:00 Benjamin Ashford [facility] PROTHROMBIN TIME / INR 2020-08-27 05:58:00 Jeremy Ashford [facility] ACTIVATED PARTIAL THRMPLAS ELAINE 2020-08-27 05:58:00 Benjamin Ashford [facility] EKG-12 LEAD 2020-08-27 05:54:03 Benjamin Ashford [facility] NOTICE OF PRIVACY PRACTICES 2020-08-27 05:44:26 Doctor Unassigned, [place] [facility] CONSENT/REFUSAL FOR DIAGNOSIS AND TREATMENT 2020-08-27 05:43:44 Doctor Unassigned, [place] [facility] CONSENT/REFUSAL FOR DIAGNOSIS AND TREATMENT 2020-08-27 05:43:43 Doctor Unassigned, [place] [facility] CT ABDOMEN PELVIS W CONTRAST 2020-07-10 05:12:21 Chapito Contreras [facility] TROPONIN I 2020-07-10 03:49:00 Chapito Contreras [facility] ADC / LCC - DRUG SCREEN TRIAGE 2020-07-10 03:13:00 Chapito Contreras [facility] XR CHEST 1 VW 2020-07-10 01:05:14 Chapito Contreras [facility] LIPASE 2020-07-10 00:55:00 Chapito Contreras [facility] TROPONIN I 2020-07-10 00:55:00 Chapito Contreras [facility] COMP. METABOLIC PANEL ([id number]) 2020-07-10 00:55:00 Chapito Contrersa [facility] CBC WITH DIFF 2020-07-10 00:55:00 Chapito Contreras [facility] PROTHROMBIN TIME / INR 2020-07-10 00:55:00 Yesica Contreras [facility] D-DIMER 2020-07-10 00:55:00 Chapito Contreras [facility] COVID-19 (ID NOW RAPID TESTING) 2020-07-10 00:55:00 Chapito Contreras [facility] EKG-12 LEAD 2020-07-10 00:52:35 Chapito Contreras [facility] Encounters Start Date/Time End Date/Time Encounter Type Admission Type Attending [facility] Care Facility Care Department Encounter ID Source 2025-05-26 15:56:21 Inpatient EL NYLA HANDY [facility] [id number] [facility] 2025-05-26 15:56:14 [id number] 2025-05-26 15:56:07 Inpatient EL NYLA HANDY [facility] [id number] [facility] 2025-05-26 15:55:58 Inpatient EL NYLA HANDY [facility] [id number] [facility] 2025-05-21 14:58:39 Inpatient MORRIS ESPARZA SLE SLE [id number] [facility] 2025-05-21 14:58:32 Inpatient MORRIS ESPARZA [facility] [id number] [facility] 2025-05-18 00:00:00 [id number] 2025-05-16 06:40:32 [id number] 2025-05-15 10:40:09 Inpatient DEMAR PORRASL [facility] SLE [id number] [facility] 2025-05-14 18:02:56 Inpatient EL SLE SLE [id number] [facility] 2025-05-14 05:20:00 2025-05-30 14:59:00 Hospital Encounter Hakeem Grant, Amanda Breen, Theresa Lizama Mrinalini Z Ole, Nyla [facility] [id number] [facility] 2025-05-14 05:20:00 2025-05-30 14:59:00 Hospital Encounter RudyHakeem, Amanda Breen, Demarco Freeman, Theresa Dao, Najmanalsho Filemon Ole, Nyla [facility] [id number] [facility] 2025-05-29 15:16:37 2025-05-29 23:59:00 Inpatient EL OLENYLA Wise SLEH [facility] [id number] [facility] 2025-05-29 14:00:00 2025-05-29 23:59:00 Hospital Encounter OleNyla wise [facility] [id number] [facility] 2025-05-29 14:00:00 2025-05-29 23:59:00 Hospital Encounter Nyla Handy [facility] [id number] [facility] 2025-05-29 15:16:33 2025-05-29 13:59:00 Inpatient EL OLENYLA Wise SLE[facility] [id number] [facility] 2025-05-29 09:05:00 2025-05-29 13:59:00 Hospital Encounter OleNyla wise [facility] [id number] [facility] 2025-05-29 09:05:00 2025-05-29 13:59:00 Hospital Encounter OleNyla wise [facility] [id number] [facility] 2025-05-29 00:00:00 2025-05-29 00:00:00 Outpatient EL OLENYLA Wise SLEArtemio [facility]H [id number] [facility] 2025-05-24 00:00:00 2025-05-26 22:26:16 Orders Only Ara Hurt [facility] [id number] [facility] 2025-05-24 00:00:00 2025-05-26 22:26:16 Orders Only Ara Hurt [facility] [id number] [facility] 2025-05-26 16:00:00 2025-05-26 19:15:00 Anesthesia Event Jack Frias, Tramdarlin [facility] [id number] [facility] 2025-05-26 16:00:00 2025-05-26 19:15:00 Anesthesia Event Jack Friasn, Trammi [facility] [id number] [facility] 2025-05-26 14:00:00 2025-05-26 14:48:00 Surgery Virtual, Surgeon [facility] [id number] [facility] 2025-05-26 14:00:00 2025-05-26 14:48:00 Surgery Virtual, Surgeon [facility] [id number] [facility] 2025-05-26 00:00:00 2025-05-26 00:00:00 Outpatient EL OLE, NYLA SLE[facility] [id number] [facility] 2025-05-26 00:00:00 2025-05-26 00:00:00 Outpatient EL OLE, NYLA [facility] [facility] [id number] [facility] 2025-05-26 00:00:00 2025-05-26 00:00:00 Outpatient EL OLE, [place]LA SLEH [facility] [id number] [facility] 2025-05-26 00:00:00 2025-05-26 00:00:00 Outpatient EL OLE, NYLA SLEH [facility] [id number] [facility] 2025-05-23 08:14:10 2025-05-23 08:14:10 Outpatient EL OLE, NYLA SLEH [facility] [id number] [facility] 2025-05-14 00:00:00 2025-05-14 08:57:39 Orders Only [facility] [id number] [facility] 2025-05-14 00:00:00 2025-05-14 08:57:39 Orders Only [facility] [id number] [facility] 2025-05-14 00:00:00 2025-05-14 00:00:[address] [facility] [id number] [facility] 2025-05-14 00:00:00 2025-05-14 00:00:[address] [facility] [id number] [facility] 2025-04-06 00:00:00 2025-05-07 18:22:30 Patient Secure Msg Doctor Unassigned, [place] Doctor Unassigned, [place] [facility] 1.840.114 350.1.13.10 4.2.7.2.686 [id number] [facility] 2025-04-06 00:00:00 2025-04-06 17:00:54 Letter (Out) Trevon Mims [facility] 1.840.114 350.1.13.10 4.2.7.2.686 [id number] [id number] [facility] 2025-03-28 07:04:00 2025-03-30 17:58:00 Hospital Encounter X RUTH WILKES [facility] [id number] [facility] 2025-03-30 12:05:00 2025-03-30 15:35:00 Surgery Carisa Franks [facility] 1.840.114 350.1.13.10 4.2.7.2.686 [id number] [facility] 2024-11-13 20:42:00 2024-11-13 22:15:00 Emergency X ELSA WHITE PAMALA [facility] [id number] [facility] 2024-11-13 20:42:00 2024-11-13 22:15:00 Emergency Elsa White [facility] 1.840.114 350.1.13.10 4.2.7.2.686 [id number] [facility] 2024-02-09 00:00:00 2024-03-13 18:08:36 Patient Secure Msg Doctor Unassigned, [place] [facility] 1.2.840.114 350.1.13.10 4.2.7.2.686 [id number] [facility] 2024-02-04 10:45:00 2024-02-04 14:36:00 Emergency X DIANNA, BABS [facility] [id number] [facility] 2024-02-04 10:45:00 2024-02-04 14:36:00 Emergency Idanna, Babs [facility] 1.2.840.114 350.1.13.10 4.2.7.2.686 [id number] [facility] 2023-12-28 03:16:00 2023-12-28 04:32:00 Emergency X VAUGHN CONTRERASMANSOOR JABARISUKHWINDERGILMAR WENDYCLAUDIO [facility] [id number] [facility] 2023-12-28 03:16:00 2023-12-28 04:32:00 Emergency Ben Vaughnmansoor Olguin [facility] 1.2.840.114 350.1.13.10 4.2.7.2.686 [id number] [id number] [facility] 2023-11-05 23:52:00 2023-11-06 02:37:00 Emergency X Nidia SOSA K [facility] [id number] [facility] 2023-11-05 23:52:00 2023-11-06 02:37:00 Emergency Nidia Sosa [facility] 1.2.840.114 350.1.13.10 4.2.7.2.686 [id number] [id number] [facility] 2023-10-31 23:33:00 2023-11-01 04:19:00 Emergency X JOSE FRANCISCO WALTERS [facility] [id number] [facility] 2023-10-31 23:33:00 2023-11-01 04:19:00 Emergency Jose Francisco Walters [facility] 1.2.840.114 350.1.13.10 4.2.7.2.686 [id number] [id number] [facility] 2023-10-22 23:39:00 2023-10-23 02:31:00 Emergency X CHAPITO CONTRERAS [facility] [id number] [facility] 2023-10-22 23:39:00 2023-10-23 02:31:00 Emergency Chapito Contreras [facility] 1.2.840.114 350.1.13.10 4.2.7.2.686 [id number] [id number] [facility] 2023-09-25 23:04:00 2023-09-26 02:30:00 Emergency X LOREN TAM HEE-KWANG [facility] [id number] [facility] 2023-09-25 23:04:00 2023-09-26 02:30:00 Emergency Loren Tam [facility] 1.2.840.114 350.1.13.10 4.2.7.2.686 [id number] [id number] [facility] 2023-08-25 00:00:00 2023-08-25 00:00:00 Patient Secure Msg Doctor Unassigned, [place] [facility] 1.2.840.114 350.1.13.10 4.2.7.2.686 [id number] [facility] 2023-08-23 22:43:00 2023-08-24 02:41:00 Emergency Patrick Steiner [facility] 1.2.840.114 350.1.13.10 4.2.7.2.686 [id number] [facility] 2023-08-23 22:43:00 2023-08-24 02:41:00 Emergency X PATRICK STEINER [facility] [id number] [facility] 2023-07-07 03:51:00 2023-07-07 05:56:00 Emergency X CHAPITO CONTRERAS [facility] [id number] [facility] 2023-07-07 03:51:00 2023-07-07 05:56:00 Emergency Chapito Contreras [facility] 1.840.114 350.1.13.10 4.2.7.2.686 [id number] [id number] [facility] 2023-05-25 17:20:00 2023-05-25 22:37:00 Emergency X Nidia SOSA [facility] [id number] [facility] 2023-05-25 17:20:00 2023-05-25 22:37:00 Emergency Nidia Sosa [facility] 1.840.114 350.1.13.10 4.2.7.2.686 [id number] [facility] 2023-02-20 18:06:00 2023-02-20 21:03:00 Emergency X SOFIA PADILLASOFIA [facility] [id number] [facility] 2023-02-20 18:06:00 2023-02-20 21:03:00 Emergency Sofia Padilla [facility] 1.2840.114 350.1.13.10 4.2.7.2.686 [id number] [id number] [facility] 2023-02-20 00:00:00 2023-02-20 00:00:00 Orders Only Doctor Unassigned, [place] [facility] 1.2840.114 350.1.13.10 4.2.7.2.686 [id number] [facility] 2022-12-29 00:24:00 2022-12-29 05:29:00 Emergency X CHAPITO CONTRERAS [facility] [id number] [facility] 2022-12-29 00:24:00 2022-12-29 05:29:00 Emergency Chapito Contreras [facility] 1.2.840.114 350.1.13.10 4.2.7.2.686 [id number] [id number] [facility] 2022-11-21 02:14:00 2022-11-21 03:04:00 Emergency X ETIENNE STEINERYA [facility] [id number] [facility] 2022-11-21 02:14:00 2022-11-21 03:04:00 Emergency Patrick Steiner [facility] 1.2.840.114 350.1.13.10 4.2.7.2.686 [id number] [facility] 2022-10-29 01:37:00 2022-10-29 02:25:00 Emergency X MARIE MORALES [facility] [id number] [facility] 2022-10-29 01:37:00 2022-10-29 02:25:00 Emergency Marie Morales [facility] 1.2.840.114 350.1.13.10 4.2.7.2.686 [id number] [facility] 2022-06-01 23:34:00 2022-06-02 00:39:00 Emergency X SAQIB GARY [facility] [id number] [facility] 2022-06-01 23:34:00 2022-06-02 00:39:00 Emergency Saqib Gary [facility] 1.2.840.114 350.1.13.10 4.2.7.2.686 [id number] [id number] [facility] 2022-05-28 11:00:00 2022-05-28 13:39:00 Emergency X SAQIB GARY [facility] [id number] [facility] 2022-05-28 11:00:00 2022-05-28 13:39:00 Emergency Saqib Gary [facility] 1.2.840.114 350.1.13.10 4.2.7.2.686 [id number] [id number] [facility] 2022-05-05 22:33:00 2022-05-06 01:49:00 Emergency X Nidia SOSA [facility] [id number] [facility] 2022-05-05 22:33:00 2022-05-06 01:49:00 Emergency Nidia Sosa [facility] 1.2.840.114 350.1.13.10 4.2.7.2.686 [id number] [id number] [facility] 2022-05-01 07:33:00 2022-05-01 09:07:00 Emergency X SAQIB GARY [facility] [id number] [facility] 2022-05-01 07:33:00 2022-05-01 09:07:00 Emergency Saqib Gary [facility] 1.2.840.114 350.1.13.10 4.2.7.2.686 [id number] [id number] [facility] 2022-02-08 01:00:00 2022-02-08 03:03:00 Emergency X BENJAMIN ASHFORD [facility] [id number] [facility] 2022-02-08 01:00:00 2022-02-08 03:03:00 Emergency DejonBenjamin [facility] 1.2.840.114 350.1.13.10 4.2.7.2.686 [id number] [id number] [facility] 2021-10-14 16:40:00 2021-10-14 19:30:00 Emergency X MARIE MORALES [facility] [id number] [facility] 2021-10-14 16:40:00 2021-10-14 19:30:00 Emergency Marie Morales [facility] 1.2.840.114 350.1.13.10 4.2.7.2.686 [id number] [id number] [facility] 2021-05-15 12:11:58 2021-05-15 23:59:00 Hospital Encounter Geoff Leyva Nick [facility] 1.2.840.114 350.1.13.10 4.2.7.2.686 [id number] [facility] 2021-05-15 12:30:00 2021-05-15 12:30:00 Outpatient R GEOFF LEYVA [facility] [id number] [facility] 2021-05-08 12:30:00 2021-05-08 23:59:00 Hospital Encounter Kiki Mathur [facility] 1.2.840.114 350.1.13.10 4.2.7.2.686 [id number] [facility] 2021-05-08 12:30:00 2021-05-08 12:30:00 Outpatient R KIKI MATHUR [facility] [id number] [facility] 2021-05-06 03:01:00 2021-05-06 04:28:00 Emergency Saqib Gary [facility] 1.2.840.114 350.1.13.10 4.2.7.2.686 [id number] [id number] [facility] 2021-05-06 03:01:00 2021-05-06 04:28:00 Emergency SAQIB MEDRANO [facility] [id number] [facility] 2021-03-14 21:49:00 2021-03-15 01:22:00 Emergency Chapito Contreras [facility] 1.2.840.114 350.1.13.10 4.2.7.2.686 [id number] 2021-03-14 21:49:00 2021-03-15 01:22:00 Emergency Chapito Contreras [facility] 1.2.840.114 350.1.13.10 4.2.7.2.686 [id number] [facility] 2021-03-14 21:49:00 2021-03-14 21:49:00 Emergency X CHAPITO CONTRERAS [facility] [id number] [facility] 2020-09-08 16:52:00 2020-09-08 18:13:00 Emergency Singer Saqib [facility] 1.2.840.114 350.1.13.10 4.2.7.2.686 [id number] [id number] 2020-09-08 16:52:00 2020-09-08 18:13:00 Emergency Saqib Gary [facility] 1.2.840.114 350.1.13.10 4.2.7.2.686 [id number] [id number] [facility] 2020-09-08 16:52:00 2020-09-08 16:52:00 Emergency X SAQIB GARY [facility] [id number] [facility] 2020-09-06 09:52:00 2020-09-06 13:38:00 Emergency Nidia Sosa [facility] 1.2.840.114 350.1.13.10 4.2.7.2.686 [id number] [id number] 2020-09-06 09:52:00 2020-09-06 13:38:00 Emergency Nidia Sosa [facility] 1.2.840.114 350.1.13.10 4.2.7.2.686 [id number] [id number] [facility] 2020-09-06 09:52:00 2020-09-06 09:52:00 Emergency X [facility] [id number] [facility] 2020-09-06 00:00:00 2020-09-06 00:00:00 Orders Only Doctor Unassigned, [place] [facility] 1.2.840.114 350.1.13.10 4.2.7.2.686 [id number] 2020-09-06 00:00:00 2020-09-06 00:00:00 Orders Only Doctor Unassigned, [place] [facility] 1.2.840.114 350.1.13.10 4.2.7.2.686 [id number] [facility] 2020-08-26 23:45:00 2020-08-30 08:05:00 [facility].2.840.114 350.1.13.10 4.2.7.2.686 [id number] 2020-08-26 23:45:00 2020-08-30 08:05:00 Emergency Benjamin Ashford [facility] 1.2.840.114 350.1.13.10 4.2.7.2.686 [id number] [facility] 2020-08-26 23:43:00 2020-08-26 23:43:00 Emergency X [facility] [id number] [facility] 2020-07-09 19:41:00 2020-07-10 00:40:00 [facility] 1.2.840.114 350.1.13.10 4.2.7.2.686 [id number] [facility] 2020-07-09 19:41:00 2020-07-10 00:40:00 [facility] 1.2.840.114 350.1.13.10 4.2.7.2.686 [id number] 2020-07-09 19:41:00 2020-07-09 19:41:00 Emergency X CHAPITO CONTRERAS [facility] E[facility] [id number] [facility] 2005-04-01 12:20:00 2005-04-01 20:14:00 Emergency X MARIBELL CEDILLO [facility] E[facility] [id number] [facility] Results Test Description Test Time Test Comments Results Result Co mments Source [facility] [id number] 13:52:38* Test Item Value Reference Range Interpretation Comme nts Paramjit auris PCR Surveillance (test code = 94000-7) Negative Negative LAURIE (test code = LAURIE) Molecular detectio n of Paramjit auris DNA cannot rule out co-infections or disease caused by other viral, bacterial, or fungal pathogens. False negative results may occur if the organism is present at levels below the analytical limit of detection of this assay.

The Paramjit auris real-time PCR-based detection reagent is manufactured and packaged as an open system reagent for use with [employer] system platforms and has been validated by [facility]ostics [facility]. [employer] OSR contains all components required for real-time PCR cycling reactions (e.g., primers, probes, buffers, etc.). Lab Interpretation (test code = 43964-2) Normal [facility] AURIS PCR [id number] 13:52:38* Test Item Value Reference Range Interpretation Comme nts CANIDIDA AURIS PCR SURVEILLA NCE (test code = 4089927730) Negative Negative Molecular detection of Paramjit auris DNA cannot rule out co-infections or disease caused by other viral, bacterial, or fungal pathogens. False negative results may occur if the organism is present atlevels below the analytical limit of detection of this assay.

The Paramjit auris real-time PCR-based detection reagent is manufactured and packaged as an open system reagent for use with [employer] system platforms and has been validated by [facility] Molecular Diagnostics Laboratory. [employer] OSR contains all components required for real-time PCR cycling reactions (e.g., primers, probes, buffers, etc.).POC-Glucose meter 2025-05-30 12:33:33* Test Item Value Reference Range Interpretation Comme [facility] POC-Glucose Meter (test code = 1538) 92 mg/dL 70-110 : TESTED AT [place] [id number] [facility], [address]: Fundraising Coordinator/Manager Testing ID = [id number] for Yesi Hudson Lab Interpretation (test code = 33204-1) Normal [facility] [id number] 12:33:33* Test Item Value Reference Range Interpretation Comme nts POC-Glucose Meter (test code = 1538) 92 mg/dL 70-110 : TESTED AT [address], [address]: Fundraising Coordinator/Manager Testing ID = [id number] for Yesi Hudson Lab Interpretation (test code = 03994-4) Normal [facility]SE [id number] 12:33:33* Test Item Value Reference Range Interpretation Comme nts POC-GLUCOSE METER (BEAKER) (test code = 1538) 92 mg/dL 70-110 : TESTED AT [address], [address]: Fundraising Coordinator/Manager Testing ID = [id number] for Yesi Hudson POCT-GLUCOSE [id number] 07:44:15* Test Item Value Reference Range Interpretation Comme nts POC-GLUCOSE METER (BEAKER) (test code = 1538) 122 mg/dL 70-110 H : TESTED AT [address], [address]: Fundraising Coordinator/Manager Testing ID = [id number] for JOSLYN VARGAS [id number] 06:58:56* Test Item Value Reference Range Interpretation Comme nts MAGNESIUM (BEAKER) (test cod e = 627) 2.1 mg/dL 1.6-2.6 [id number] 06:58:56* Test Item Value Reference Range Interpretation Comme nts PHOSPHORUS (BEAKER) (test co de = 604) 4.5 mg/dL 2.5-4.5 CBC W/PLT COUNT & AUTO [id number] 06:05:28* Test Item Value Reference Range Interpretation Comme nts WHITE BLOOD CELL COUNT (BEAK ER) (test code = 775) 11.7 K/ L 3.5-10.5 H RED BLOOD CELL COUNT (BEAKER ) (test code = 761) 4.74 M/ L 4.63-6.08 HEMOGLOBIN (BEAKER) (test co de = 410) 14.3 GM/DL 13.7-17.5 HEMATOCRIT (BEAKER) (test co de = 411) 43.8 % 40.1-51.0 MEAN CORPUSCULAR VOLUME (YULISSA KER) (test code = 753) 92 fL 79-92 MEAN CORPUSCULAR HEMOGLOBIN (BEAKER) (test code = 751) 30.2 pg 25.7-32.2 MEAN CORPUSCULAR HEMOGLOBIN CONC (BEAKER) (test code = 752) 32.6 GM/DL 32.3-36.5 RED CELL DISTRIBUTION WIDTH (BEAKER) (test code = 412) 13.2 % 11.6-14.4 PLATELET COUNT (BEAKER) (velma t code = 756) 281 K/CU MM 150-450 MEAN PLATELET VOLUME (BEAKER ) (test code = 754) 9.3 fL 9.4-12.4 L NUCLEATED RED BLOOD CELLS (BEAKER) (test code = 413) 0 /100 WBC 0-0 NEUTROPHILS RELATIVE PERCENT (BEAKER) (test code = 429) 60 % LYMPHOCYTES RELATIVE PERCENT (BEAKER) (test code = 430) 30 % MONOCYTES RELATIVE PERCENT (BEAKER) (test code = 431) 7 % EOSINOPHILS RELATIVE PERCENT (BEAKER) (test code = 432) 1 % BASOPHILS RELATIVE PERCENT (BEAKER) (test code = 437) 1 % NEUTROPHILS ABSOLUTE COUNT (BEAKER) (test code = 670) 7.00 K/ L 1.78-5.38 H LYMPHOCYTES ABSOLUTE COUNT (BEAKER) (test code = 414) 3.54 K/ L 1.32-3.57 MONOCYTES ABSOLUTE COUNT (BE DARIN) (test code = 415) 0.84 K/ L 0.30-0.82 H EOSINOPHILS ABSOLUTE COUNT (BEAKER) (test code = 416) 0.15 K/ L 0.04-0.54 BASOPHILS ABSOLUTE COUNT (BE DARIN) (test code = 417) 0.09 K/ L 0.01-0.08 H IMMATURE GRANULOCYTES-RELATI VE PERCENT (BEAKER) (test code = 2801) 0.70 % 0.00-1.00 CT chest with IV [id number] 22:32:59TECHNIQUE: CT of the chest, abdomen, and pelvis WITH intravenouscontrast and WITHOUT oral contrast.Dose modulation, iterativereconstruction, and/or weight-based adjustment of the mA/kV was utilizedto reduce the radiation dose to as low as reasonably achievable. INDICATION: Unlisted Reason for Exammalignancy evaluation. COMPARISON: None. FINDINGS: Motion artifact makes evaluation suboptimal. LINES/TUBES: None. LUNGS AND AIRWAYS: The lungs and airways are normal without focalabnormality.PLEURA: T he pleural spaces are clear.HEART AND MEDIASTINUM: The visualized thyroid gland is normal. Nosignificant mediastinal, hilar, or axillary lymphadenopathy. A prominentbut nonenlarged right perihilar lymph node measures 0.9 cm in short axisdimension. Stents in the left anterior descending coronary artery, leftcircumflex coronary artery, and right coronary artery. HEPATOBILIARY: No focal hepatic lesions. Gallbladder is unremarkable. Nobiliary ductal dilatation.SPLEEN: No splenomegaly.PANCREAS: No focal masses or ductal dilatation. ADRENALS: A left adrenal nodule measures 0.6 cm. This is almostcert ainly benign, and no additional imaging is recommended for thisfinding. KIDNEYS/URETERS: No hydronephrosis, stones, or masses.PELVIC ORGANS/BLADDER: There is a 5.7 cm left epididymal cyst. Smallrighthydrocele. PERITONEUM/RETROPERITONEUM: No free air or fluid.LYMPH NODES: No lymphadenopathy.VESSELS: Moderate atherosclerosis of the abdominal aorta. GI TRACT: The distal esophagus is mildly thickened. BONES AND SOFT TISSUES: Mild bilateral gynecomastia. Recent medicationinjection sites in the subcutaneous tissues. Mild degenerative discchanges of the lumbar spineCHI Beverly HospitalCT chest with IV [id number] 22:32:59TECHNIQUE: CT of the chest, abdomen, and pelvis WITH intravenouscontrast and WITHOUT oral contrast.Dose modulation, iterativereconstruction, and/or weight-based adjustment of the mA/kV was utilizedto reduce the radiation dose to as low as reasonably achievable. INDICATION: Unlisted Reason for Exammalignancy evaluation. COMPARISON: None. FINDINGS: Motion artifact makes evaluation suboptimal. LINES/TUBES: None. LUNGS AND AIRWAYS: The lungs and airways are normal without focalabnormality.PLEURA: T he pleural spaces are clear.HEART AND MEDIASTINUM: The visualized thyroid gland is normal. Nosignificant mediastinal, hilar, or axillary lymphadenopathy. A prominentbut nonenlarged right perihilar lymph node measures 0.9 cm in short axisdimension. Stents in the left anterior descending coronary artery, leftcircumflex coronary artery, and right coronary artery. HEPATOBILIARY: No focal hepatic lesions. Gallbladder is unremarkable. Nobiliary ductal dilatation.SPLEEN: No splenomegaly.PANCREAS: No focal masses or ductal dilatation. ADRENALS: A left adrenal nodule measures 0.6 cm. This is almostcert ainly benign, and no additional imaging is recommended for thisfinding. KIDNEYS/URETERS: No hydronephrosis, stones, or masses.PELVIC ORGANS/BLADDER: There is a 5.7 cm left epididymal cyst. Smallrighthydrocele. PERITONEUM/RETROPERITONEUM: No free air or fluid.LYMPH NODES: No lymphadenopathy.VESSELS: Moderate atherosclerosis of the abdominal aorta. GI TRACT: The distal esophagus is mildly thickened. BONES AND SOFT TISSUES: Mild bilateral gynecomastia. Recent medicationinjection sites in the subcutaneous tissues. Mild degenerative discchanges of the lumbar spineCHI Beverly HospitalCT ABDOMEN/PELVIS WITH IV CONTRAST Standard [id number] 22:32:59 TECHNIQUE: CT of the chest, abdomen, and pelvis WITH intravenouscontrast and WITHOUT oral contrast.Dose modulation, iterativereconstruction, and/or weight- based adjustment of the mA/kV was utilizedto reduce the radiation dose to as low as reasonably achievable. INDICATION: Unlisted Reason for Exammalignancy evaluation. COMPARISON: None. FINDINGS: Motion artifact makes evaluation suboptimal. LINES/TUBES: None. LUNGS AND AIRWAYS: The lungs and airways are normal without focalabnormality.PLEURA: The pleural spaces are clear.HEART AND MEDIASTINUM: The visualized thyroid gland is normal. Nosignificant mediastinal, hilar, or axillary lymphadenopathy. A prominentbut nonenlarged right perihilar lymph node measures 0.9 cm in short axisdimension. Stents in the left anterior descending coronary artery, leftcircumflex coronary artery, and right coronary artery. HEPATOBILIARY: No focal hepatic lesions. Gallbladder is unremarkable. Nobiliary ductal dilatation.SPLEEN: No splenomegaly.PANCREAS: No focal masses or ductal dilatation. ADRENALS: A left adrenal nodule measures 0.6 cm. This is almostcertainly benign, and no additional imaging is recommended for thisfinding. KIDNEYS/URETERS: No hydronephrosis, stones, or masses.PELVIC ORGANS/BLADDER: There is a 5.7 cm left epididymal cyst. Smallrighthydrocele. PERITONEUM/RETROPERITONEUM: No free air or fluid.LYMPH NODES: No lymphadenopathy.VESSELS: Moderate atherosclerosis of the abdominal aorta. GI TRACT: The distal esophagus is mildly thickened. BONES AND SOFT TISSUES: Mild bilateral gynecomastia. Recent medicationinjection sites in the subcutaneous tissues. Mild degenerative discchanges of the lumbar spineSaint [facility] Regional HospitalCT ABDOMEN/PELVIS WITH IV CONTRAST Standard [id number] 22:32:59 TECHNIQUE: CT of the chest, abdomen, and pelvis WITH intravenouscontrast and WITHOUT oral contrast.Dose modulation, iterativereconstruction, and/or weight- based adjustment of the mA/kV was utilizedto reduce the radiation dose to as low as reasonably achievable. INDICATION: Unlisted Reason for Exammalignancy evaluation. COMPARISON: None. FINDINGS: Motion artifact makes evaluation suboptimal. LINES/TUBES: None. LUNGS AND AIRWAYS: The lungs and airways are normal without focalabnormality.PLEURA: The pleural spaces are clear.HEART AND MEDIASTINUM: The visualized thyroid gland is normal. Nosignificant mediastinal, hilar, or axillary lymphadenopathy. A prominentbut nonenlarged right perihilar lymph node measures 0.9 cm in short axisdimension. Stents in the left anterior descending coronary artery, leftcircumflex coronary artery, and right coronary artery. HEPATOBILIARY: No focal hepatic lesions. Gallbladder is unremarkable. Nobiliary ductal dilatation.SPLEEN: No splenomegaly.PANCREAS: No focal masses or ductal dilatation. ADRENALS: A left adrenal nodule measures 0.6 cm. This is almostcertainly benign, and no additional imaging is recommended for thisfinding. KIDNEYS/URETERS: No hydronephrosis, stones, or masses.PELVIC ORGANS/BLADDER: There is a 5.7 cm left epididymal cyst. Smallrighthydrocele. PERITONEUM/RETROPERITONEUM: No free air or fluid.LYMPH NODES: No lymphadenopathy.VESSELS: Moderate atherosclerosis of the abdominal aorta. GI TRACT: The distal esophagus is mildly thickened. BONES AND SOFT TISSUES: Mild bilateral gynecomastia. Recent medicationinjection sites in the subcutaneous tissues. Mild degenerative discchanges of the lumbar spineCHI Beverly HospitalCT CHEST WITH IV [id number] 22:32:59 [facility] : 1975 Sex: MTECHNIQUE: CT of the chest, abdomen, and pelvis WITH intravenouscontrast and WITHOUToral contrast. Dose modulation, iterativereconstruction, and/or weight-based adjustment of the mA/kV was utilizedto reduce the radiation dose to as low as reasonably achievable.INDICATION: Unlisted Reason for Exammalignancy evaluation.COMPARISON: None.FINDINGS:Motion artifact makes evaluation subopt imal.LINES/TUBES: None.LUNGS AND AIRWAYS: The lungs and airways are normal without focalabnormality.PLEURA: The pleural spaces are clear.HEART AND MEDIASTINUM: The visualized thyroid gland is normal.Nosignificant mediastinal, hilar, or axillary lymphadenopathy. A prominentbut nonenlarged right perihilar lymph node measures 0.9 cm in short axisdimension. Stents in the left anterior descending coronary artery, leftcircumflex coronary artery, and right coronary artery.HEPATOBILIARY: No focal hepatic lesions. Gallbladder is unremarkable. Nobiliary ductal dilatation.SPLEEN: No splenomegaly.PANCREAS: No focal masses or ductal dilatation.ADRENALS: A left adrenal nodule measures 0.6 cm. This is main ostcertainly benign, and no additional imaging is recommended for thisfinding.KIDNEYS/URETERS: No hydronephrosis, stones, or masses.PELVIC ORGANS/BLADDER: There is a 5.7 cm left epididymal cyst. Smallright hydrocele.PERITONEUM/RETROPERITONEUM: No free air or fluid.LYMPH NODES: No lymphadenopathy.VESSELS: Moderate atherosclerosis of the abdominal aorta.GI TRACT: The distal esophagus is mildly thickened.BONES AND SOFT TISSUES: Mild bilateral gynecomastia. Recent medicationinjection sites in the subcutaneous tissues. Mild degenerative discchanges of the lumbar spineIMPRESSION:Evaluation is suboptimal due to motion artifact.No definite malignancy in the chest, abdomen, or pelvis. There is mildthickening of the distal esophagus from an indeterminate cause. Thiscould be due to esophagitis, but given the history, consider endoscopyto exclude a mass.Electronically Signed By: Rd Isabel522:35 CDTWorkstation Name: [id number] ABDOMEN/PELVIS WITH IV [id number] 22:32:59 [facility] : 1975 Sex: MTECHNIQUE: CT of the chest, abdomen, and pelvis WITH intravenouscontrast and WITHOUT oral contrast. Dose modulation, iterativereconstruction, and/or weight-based adjustment of the mA/kV was utilizedto reduce the radiation dose to as low as reasonably achievable.INDICATION: Unlisted Reason for Exammalignancy evaluation.COMPARISON: None.FINDINGS:Motion artifact makes evaluation subop timal.LINES/TUBES: None.LUNGS AND AIRWAYS: The lungs and airways are normal without focalabnormality.PLEURA: The pleural spaces are clear.HEART AND MEDIASTINUM: The visualized thyroid gland is normal. Nosignificant mediastinal, hilar, or axillary lymphadenopathy. A prominentbut nonenlarged right perihilar lymph node measures 0.9 cm in short axisdimension. Stents in the left anterior descending coronary artery, leftcircumflex coronary artery, and right coronary artery.HEPATOBILIARY: No focal hepatic lesions. Gallbladder is unremarkable. Nobiliary ductal dilatation.SPLEEN: No splenomegaly.PANCREAS: No focal masses or ductal dilatation.ADRENALS: A left adrenal nodule measures 0.6 cm. This is al mostcertainly benign, and no additional imaging is recommended for thisfinding.KIDNEYS/URETERS: No hydronephrosis, stones, or masses.PELVIC ORGANS/BLADDER: There is a 5.7 cm left epididymal cyst. Smallright hydrocele.PERITONEUM/RETROPERITONEUM: No free air or fluid.LYMPH NODES: No lymphadenopathy.VESSELS: Moderate atherosclerosis of the abdominal aorta.GI TRACT: The distal esophagus is mildly thickened.BONES AND SOFT TISSUES: Mild bilateral gynecomastia. Recent medicationinjection sites in the subcutaneous tissues. Mild degenerative discchanges of the lumbar spineIMPRESSION:Evaluation is suboptimal due to motion artifact.No definite malignancy in the chest, abdomen, or pelvis. There is mildthickening of the distal esophagus from an indeterminate cause. Thiscould be due to esophagitis, butgiven the history, consider endoscopyto exclude a mass.Electronically Signed By: Rd Isabel05/29/2025 22:35 CDTWorkstation Name: [id number] METER 2025-05-29 19:47:13* Test Item Value Reference Range Interpretation Comme nts POC-GLUCOSE METER (BEAKER) (test code = 1538) 138 mg/dL 70-110 H : TESTED AT [facility] [address] [facility], [id number]: Fundraising Coordinator/Manager Testing ID = [id number] for Lorena Toussaint POCT-GLUCOSE [id number] 18:03:18* Test Item Value Reference Range Interpretation Comme nts POC-GLUCOSE METER (BEAKER) (test code = 1538) 103 mg/dL 70-110 : TESTED AT [facility] [address] [facility], [address]: Fundraising Coordinator/Manager Testing ID = [id number] for Mary Flores BASIC METABOLIC [id number] 14:28:57* Test Item Value Reference Range Interpretation Comme nts SODIUM (BEAKER) (test code = 381) 142 meq/L 136-145 POTASSIUM (BEAKER) (test code = 379) 3.4 meq/L 3.5-5.1 L CHLORIDE (BEAKER) (test code = 382) 111 meq/L 98-107 H CO2 (BEAKER) (test code = 355) 23 meq/L 22-29 BLOOD UREA NITROGEN (BEAKER) (test code = 354) 11 mg/dL 9-21 CREATININE (BEAKER) (test code = 358) 0.76 mg/dL 0.60-1.30 GLUCOSE RANDOM (BEAKER) (test code = 652) 172 mg/dL 70-105 H CALCIUM (BEAKER) (test code = 697) 9.3 mg/dL 8.4-10.2 EGFR (BEAKER) (test code = 1092) 112 mL/min/1.73 sq m Interpretation of eG FR values Stage Description Result G1 Normal or high >=90 G2 Mildly decreased 60-89 G3a Mildly to moderately 45-59 G3b Moderately to severely 30-44 G4 Severly decreased 15-29 G5 Kidney failure <15Reported eGFR is based on the CKD-EPI 2020 equation that does not use a race coefficientEstimated GFR is not as accurate as Creatinine Clearance in predicting glomerular filtration rate. Estimated GFR is not applicable for dialysis patients POCT-GLUCOSE [id number] 11:48:07* Test Item Value Reference Range Interpretation Comme nts POC-GLUCOSE METER (BEAKER) (test code = 1538) 192 mg/dL 70-110 H : TESTED AT [facility] [address] [facility], [address]: Fundraising Coordinator/Manager Testing ID = [id number] for Mary Flores POCT-GLUCOSE [id number] 07:51:15* Test Item Value Reference Range Interpretation Comme nts POC-GLUCOSE METER (BEAKER) (test code = 1538) 120 mg/dL 70-110 H : TESTED AT [facility] [address] [facility], [address]: Fundraising Coordinator/Manager Testing ID = [id number] for Mary Flores [id number] 05:56:59* Test Item Value Reference Range Interpretation Comme nts MAGNESIUM (BEAKER) (test code = 627) 2.1 mg/dL 1.6-2.6 Specimen sligh tly hemolyzed [id number] 05:56:59* Test Item Value Reference Range Interpretation Comme nts PHOSPHORUS (BEAKER) (test code = 604) 3.4 mg/dL 2.5-4.5 Specimen sligh tly hemolyzed CBC W/PLT COUNT & AUTO [id number] 05:52:39* Test Item Value Reference Range Interpretation Comme nts WHITE BLOOD CELL COUNT (BEAK ER) (test code = 775) 11.0 K/ L 3.5-10.5 H RED BLOOD CELL COUNT (BEAKER ) (test code = 761) 4.81 M/ L 4.63-6.08 HEMOGLOBIN (BEAKER) (test co de = 410) 14.1 GM/DL 13.7-17.5 HEMATOCRIT (BEAKER) (test co de = 411) 43.6 % 40.1-51.0 MEAN CORPUSCULAR VOLUME (YULISSA KER) (test code = 753) 91 fL 79-92 MEAN CORPUSCULAR HEMOGLOBIN (BEAKER) (test code = 751) 29.3 pg 25.7-32.2 MEAN CORPUSCULAR HEMOGLOBIN CONC (BEAKER) (test code = 752) 32.3 GM/DL 32.3-36.5 RED CELL DISTRIBUTION WIDTH (BEAKER) (test code = 412) 13.2 % 11.6-14.4 PLATELET COUNT (BEAKER) (velma t code = 756) 287 K/CU MM 150-450 MEAN PLATELET VOLUME (BEAKER ) (test code = 754) 9.4 fL 9.4-12.4 NUCLEATED RED BLOOD CELLS (BEAKER) (test code = 413) 0 /100 WBC 0-0 NEUTROPHILS RELATIVE PERCENT (BEAKER) (test code = 429) 65 % LYMPHOCYTES RELATIVE PERCENT (BEAKER) (test code = 430) 25 % MONOCYTES RELATIVE PERCENT (BEAKER) (test code = 431) 8 % EOSINOPHILS RELATIVE PERCENT (BEAKER) (test code = 432) 2 % BASOPHILS RELATIVE PERCENT (BEAKER) (test code = 437) 1 % NEUTROPHILS ABSOLUTE COUNT (BEAKER) (test code = 670) 7.12 K/ L 1.78-5.38 H LYMPHOCYTES ABSOLUTE COUNT (BEAKER) (test code = 414) 2.75 K/ L 1.32-3.57 MONOCYTES ABSOLUTE COUNT (BE DARIN) (test code = 415) 0.84 K/ L 0.30-0.82 H EOSINOPHILS ABSOLUTE COUNT (BEAKER) (test code = 416) 0.18 K/ L 0.04-0.54 BASOPHILS ABSOLUTE COUNT (BE DARIN) (test code = 417) 0.06 K/ L 0.01-0.08 IMMATURE GRANULOCYTES-RELATI VE PERCENT (BEAKER) (test code = 2801) 0.60 % 0.00-1.00 POCT-GLUCOSE [id number] 20:10:29* Test Item Value Reference Range Interpretation Comme nts POC-GLUCOSE METER (BEAKER) (test code = 1538) 144 mg/dL 70-110 H : TESTED AT [address], [address]: Fundraising Coordinator/Manager Testing ID = [id number] for Lorena Toussaint POCT-GLUCOSE [id number] 17:05:01* Test Item Value Reference Range Interpretation Comme nts POC-GLUCOSE METER (BEAKER) (test code = 1538) 136 mg/dL 70-110 H : TESTED AT [address], [address]: Fundraising Coordinator/Manager Testing ID = [id number] for SAM, JOSLYN POCT-GLUCOSE [id number] 13:07:28* Test Item Value Reference Range Interpretation Comme nts POC-GLUCOSE METER (BEAKER) (test code = 1538) 184 mg/dL 70-110 H : TESTED AT [address], [address]: Fundraising Coordinator/Manager Testing ID = [id number] for SAM, JOSLYN POCT-GLUCOSE [id number] 07:32:38* Test Item Value Reference Range Interpretation Comme nts POC-GLUCOSE METER (BEAKER) (test code = 1538) 115 mg/dL 70-110 H : TESTED AT [place] [id number] [facility], [address]: Fundraising Coordinator/Manager Testing ID = [id number] for SAM, JOSLYN POCT-GLUCOSE [id number] 20:49:06* Test Item Value Reference Range Interpretation Comme nts POC-GLUCOSE METER (BEAKER) (test code = 1538) 119 mg/dL 70-110 H : TESTED AT [address], [address]: Fundraising Coordinator/Manager Testing ID = [id number] for MARIOFATOU NAVARRO PROTHROMBIN TIME/[id number] 17:28:06* Test Item Value Reference Range Interpretation Comme nts PROTIME (BEAKER) (test code = 759) 11.0 seconds 9.9-12.7 INR (BEAKER) (test code = 370) 0.97 See Comment RECOMMENDED COUMADIN/WARFARIN INR THERAPY RANGESSTANDARD DOSE: 2.0 - 3.0 Includes: PROPHYLAXIS for venous thrombosis, systemic embolization; TREATMENT for venous thrombosis and/or pulmonary embolus.HIGH RISK: Target INR is 2.5-3.5 for patients with mechanical heart valves.Fundraising Coordinator ID -POCT-GLUCOSE METER 2025-05-27 17:00:08* Test Item Value Reference Range Interpretation Comme nts POC-GLUCOSE METER (BEAKER) (test code = 1538) 133 mg/dL 70-110 H : TESTED AT [place] [id number] [facility], [address]: Fundraising Coordinator/Manager Testing ID = [id number] for Yesi Hudson POCT-GLUCOSE [id number] 13:08:27* Test Item Value Reference Range Interpretation Comme nts POC-GLUCOSE METER (BEAKER) (test code = 1538) 158 mg/dL 70-110 H : TESTED AT [facility] [address] [facility], [address]: Fundraising Coordinator/Manager Testing ID = [id number] for Yesi Hudson [id number] 10:31:27* Test Item Value Reference Range Interpretation Comme nts MAGNESIUM (BEAKER) (test cod e = 627) 2.2 mg/dL 1.6-2.6 [id number] 10:31:27* Test Item Value Reference Range Interpretation Comme nts PHOSPHORUS (BEAKER) (test co de = 604) 3.2 mg/dL 2.5-4.5 CBC W/PLT COUNT & AUTO [id number] 08:54:35* Test Item Value Reference Range Interpretation Comme nts WHITE BLOOD CELL COUNT (BEAK ER) (test code = 775) 14.4 K/ L 3.5-10.5 H RED BLOOD CELL COUNT (BEAKER ) (test code = 761) 4.88 M/ L 4.63-6.08 HEMOGLOBIN (BEAKER) (test co de = 410) 15.1 GM/DL 13.7-17.5 HEMATOCRIT (BEAKER) (test co de = 411) 44.5 % 40.1-51.0 MEAN CORPUSCULAR VOLUME (YULISSA KER) (test code = 753) 91 fL 79-92 MEAN CORPUSCULAR HEMOGLOBIN (BEAKER) (test code = 751) 30.9 pg 25.7-32.2 MEAN CORPUSCULAR HEMOGLOBIN CONC (BEAKER) (test code = 752) 33.9 GM/DL 32.3-36.5 RED CELL DISTRIBUTION WIDTH (BEAKER) (test code = 412) 13.2 % 11.6-14.4 PLATELET COUNT (BEAKER) (velma t code = 756) 310 K/CU MM 150-450 MEAN PLATELET VOLUME (BEAKER ) (test code = 754) 9.4 fL 9.4-12.4 NUCLEATED RED BLOOD CELLS (BEAKER) (test code = 413) 0 /100 WBC 0-0 NEUTROPHILS RELATIVE PERCENT (BEAKER) (test code = 429) 81 % LYMPHOCYTES RELATIVE PERCENT (BEAKER) (test code = 430) 15 % MONOCYTES RELATIVE PERCENT (BEAKER) (test code = 431) 3 % EOSINOPHILS RELATIVE PERCENT (BEAKER) (test code = 432) 0 % BASOPHILS RELATIVE PERCENT (BEAKER) (test code = 437) 0 % NEUTROPHILS ABSOLUTE COUNT (BEAKER) (test code = 670) 11.70 K/ L 1.78-5.38 H LYMPHOCYTES ABSOLUTE COUNT (BEAKER) (test code = 414) 2.15 K/ L 1.32-3.57 MONOCYTES ABSOLUTE COUNT (BE DARIN) (test code = 415) 0.45 K/ L 0.30-0.82 EOSINOPHILS ABSOLUTE COUNT (BEAKER) (test code = 416) 0.02 K/ L 0.04-0.54 L BASOPHILS ABSOLUTE COUNT (BE DARIN) (test code = 417) 0.03 K/ L 0.01-0.08 IMMATURE GRANULOCYTES-RELATI VE PERCENT (BEAKER) (test code = 2801) 0.50 % 0.00-1.00 MR cervical spine without & with IV [id number] 08:12:07EXAM: MR BRAIN WITH & WITHOUT IV CONTRAST, MR CERVICAL SPINE WITH &WITHOUT IV CONTRAST, MR O RBIT FACE NECK WITH & WITHOUT IV CONTRAST, MRTHORACIC SPINE WITH & WITHOUT IV CONTRAST CLINICAL INDICATION: Neuro deficit, acute, stroke suspectedDemyelinating disease. TECHNIQUE: Multiplanar, multisequence imaging of the brain and orbitswas performed before and after administration of intra venous contrast. COMPARISON: None. FINDINGS:MRI ORBITS: Right: Periorbital Soft Tissues: NormalGlobe: NormalOptic Nerve: Subtle T2 hyperintensity in the right optic nerveintraorbital segment is favored to be technical in nature. Otherwise, noabnormality. No associated enhancement.Extraocular Muscles: NormalIntraconal Fat: NormalExtraconal Fat: NormalLacrimal Gland: NormalOrbital [place]: NormalOptic Canal: NormalCavernous Sinus: Normal. Left:Periorbital Soft Tissues: NormalGlobe: NormalOptic Nerve: Normal in size and signal intensity, and without abnormalmass or enhancement. Extraocular Muscles:NormalIntraconal Fat: NormalExtraconal Fat: NormalLacrimal Gland: NormalOrbital [place]: NormalOptic Ca nal: NormalCavernous Sinus: Normal. Optic Chiasm and Tracts: Normal MRI BRAIN:Parenchyma: No infarction on DWI. No hemorrhage. No mass or mass effect.Minimal circumferential FLAIR hyperintensities Abnormal Enhancement: None Extra-axial Collection: None Ventricular System: Normal Major Intracranial Flow Voids: Normal Osseous Structures: Expected marrow signal. Paranasal Sinuses: Mild mucosal thickening in the inferior maxillarysinuses. Mild to moderate leftward convexity of the bony nasal septum. Tympanomastoid Cavities: Normal MR BRAIN WITH & WITHOUT IV CONTRAST,MR CERVICAL SPINE WITH & WITHOUT IV CONTRAST, MR ORBIT FACE NECK WITH& WITHOUT IV CONTRAST, MR THORACIC SPINE WITH & WITHOUT IV CONTRAST INDICATION: Neuro deficit, acute, stroke suspectedDemyelinating disease TECHNIQUE: Multiplanar, multisequence pre and postcontrast MR images ofthe cervical and thoracic spine were obtained. COMPARISON: None FINDINGS:Cervical Spine: The craniocervical junction is normal. Mild spondylosis and facet arthropathy are present within the spine. The vertebral bodies have normal height, alignment, and signalintensity. The spinal cord is normal in caliber and signal intensity. Paraspinal soft tissues are unremarkable. C2-C3: No significant spinal canal or neural foraminal stenosisC3- C4: No significant spinal canal or neural foraminal stenosis C4-C5: No significant spinal canal or neural foraminal stenosis C5-C6: No significant spinal canal or neural foraminal stenosis C6-C7: No significant spinal canal or neural foraminal stenosis C7-T1: No significant spinal canal or neural foraminal stenosis Thoracic spine: T1 hyperintense lesion in the anterior T1 vertebral body, suggesting avertebral hemangioma.T1 hyperintense vertebral hemangiomas are also seen at the T5 and T97xcaivgdhb bodies.Otherwise, the vertebral bodies have normal height, alignment, andsignal intensity. The spinal cord is normal in caliber and signal intensity. There is no significant foraminal or spinalcanal stenosis. Paraspinal soft tissues are unremarkable. Bibasilar linear atelectasis.[facility] & with IV [id number] 08:12:07EXAM: MR BRAIN WITH & WITHOUT IV CONTRAST, MR CERVICAL SPINE WITH &WITHOUT IV CONTRAST, MR ORBIT FACE NECK WITH & WITHOUT IV CONTRAST, MRTHORACIC SPINE WITH & WITHOUT IV CONTRAST CLINICAL INDICATION: Neuro deficit, acute, stroke suspectedDemyelinating disease. TECHNIQUE: Multiplanar, multisequence imaging of the brain and orbitswas performed before and after administration of intravenous contrast. COMPARISON: None. FINDINGS:MRI ORBITS: Right: Periorbital Soft Tissues: NormalGlobe: NormalOptic Nerve: Subtle T2 hyperintensity in the right optic nerveintraorbital segment is favored to be technical in nature. Otherwise, noabnormality. No associated enhancement.Extraocular Muscles: NormalIntraconal Fat: NormalExtraconal Fat: NormalLacrimal Gland: NormalOrbital [place]: NormalOpticCanal: NormalCavernous Sinus: Normal. Left:Periorbital Soft Tissues: NormalGlobe: NormalOptic Nerve: Normal in size and signal intensity, and without abnormalmass or enhancement. Extraocular Muscles:NormalIntraconal Fat: NormalExtraconal Fat: NormalLacrimal Gland: NormalOrbital [place]: NormalOptic Canal: NormalCavernous Sinus: Normal. Optic Chiasm and Tracts: Normal MRI BRAIN:Parenchyma: No infarction on DWI. No hemorrhage. No mass or mass effect.Minimal circumferential FLAIR hyperintensities Abnormal Enhancement: None Extra-axial Collection: None Ventricular System: Normal Major Intracranial Flow Voids: Normal Osseous Structures: Expected marrow signal. Paranasal Sinuses: Mild mucosal thickening in the inferior maxillarysinuses. Mild to moderate leftward convexity of the bony nasal septum. Tympanomastoid Cavities: Normal MR BRAIN WITH & WITHOUT IV CONTRAST,MR CERVICAL SPINE WITH & WITHOUT IV CONTRAST, MR ORBIT FACE NECK WITH& WITHOUT IV CONTRAST, MR THORACIC SPINE WITH & WITHOUT IV CONTRAST INDICATION: Neuro deficit, acute, stroke suspectedDemyelinating disease TECHNI QUE: Multiplanar, multisequence pre and postcontrast MR images ofthe cervical and thoracic spine were obtained. COMPARISON: None FINDINGS:Cervical Spine: The craniocervical junction is normal. Mild spondylosis and facet arthropathy are present within the spine. The vertebral bodies have normal height, alignment, and signalintensity. The spinal cord is normal in caliber and signal intensity. Paraspinal soft tissues are unremarkable. C2-C3: No significant spinal canal or neural foraminal stenosisC3-C4: No significant spinal canal or neural foraminal stenosis C4-C5: No significant spinal canal or neural foraminal stenosis C5-C6: No significant spinal canal or neural foraminal stenosis C6-C7: No significant spinal canal or neural foraminal stenosis C7-T1: No significant spinal canal or neural foraminal stenosis Thoracic spine: T1 hyperintense lesion in the anterior T1 vertebral body, suggesting avertebral hemangioma.T1 hyperintense vertebral hemangiomas are also seen at the T5 and X79twjxkwfmd bodies.Otherwise, the vertebral bodies have normal height, alignment, andsignal intensity. The spinal cord is normal in caliber and signal intensity. There is no significant foraminal or spinalcanal stenosis. Paraspinal soft tissues are unremarkable. Bibasilar linear atelectasis.[facility] HospitalMR orbit face neck without & with IV [id number] 08:12:07EXAM: MR BRAIN WITH & WITHOUT IV CONTRAST, MR CERVICAL SPINE WITH &WITHOUT IV CONTRAST, MR ORBIT FACE NECK WITH & WITHOUT IV CONTRAST, MRTHORACIC SPINE WITH & WITHOUT IV CONTRAST CLINICAL INDICATION: Neuro deficit, acute, stroke suspectedDemyelinating disease. TECHNIQUE: Multiplanar, multisequence imaging of the brain and orbitswas performed before and after administration of intravenous contrast. COMPARISON: None. FINDINGS:MRI ORBITS: Right: Periorbital Soft Tissues: NormalGlobe: NormalOptic Nerve: Subtle T2 hyperintensity in the right optic nerveintraorbital segment is favored to be technical in nature. Otherwise, noabnormality. No associated enhancement.Extraocular Muscles: NormalIntraconal Fat: NormalExtraconal Fat: NormalLacrimal Gland: NormalOrbital [place]: NormalOptic Canal: NormalCavernous Sinus: Normal. Left:Periorbital Soft Tissues: NormalGlobe: NormalOptic Nerve: Normal in size and signal intensity, and without abnormalmass or enhancement. Extraocular Muscles:NormalIntraconal Fat: NormalExtraconal Fat: NormalLacrimal Gland: NormalOrbital [place]: NormalOptic Ca nal: NormalCavernous Sinus: Normal. Optic Chiasm and Tracts: Normal MRI BRAIN:Parenchyma: No infarction on DWI. No hemorrhage. No mass or mass effect.Minimal circumferential FLAIR hyperintensities Abnormal Enhancement: None Extra-axial Collection: None Ventricular System: Normal Major Intracranial Flow Voids: Normal Osseous Structures: Expected marrow signal. Paranasal Sinuses: Mild mucosal thickening in the inferior maxillarysinuses. Mild to moderate leftward convexity of the bony nasal septum. Tympanomastoid Cavities: Normal MR BRAIN WITH & WITHOUT IV CONTRAST,MR CERVICAL SPINE WITH & WITHOUT IV CONTRAST, MR ORBIT FACE NECK WITH& WITHOUT IV CONTRAST, MR THORACIC SPINE WITH & WITHOUT IV CONTRAST INDICATION: Neuro deficit, acute, stroke suspectedDemyelinating disease TECHNIQUE: Multiplanar, multisequence pre and postcontrast MR images ofthe cervical and thoracic spine were obtained. COMPARISON: None FINDINGS:Cervical Spine: The craniocervical junction is normal. Mild spondylosis and facet arthropathy are present within the spine. The vertebral bodies have normal height, alignment, and signalintensity. The spinal cord is normal in caliber and signal intensity. Paraspinal soft tissues are unremarkable. C2-C3: No significant spinal canal or neural foraminal stenosisC3- C4: No significant spinal canal or neural foraminal stenosis C4-C5: No significant spinal canal or neural foraminal stenosis C5-C6: No significant spinal canal or neural foraminal stenosis C6-C7: No significant spinal canal or neural foraminal stenosis C7-T1: No significant spinal canal or neural foraminal stenosis Thoracic spine: T1 hyperintense lesion in the anterior T1 vertebral body, suggesting avertebral hemangioma.T1 hyperintense vertebral hemangiomas are also seen at the T5 and E95txzunipgj bodies.Otherwise, the vertebral bodies have normal height, alignment, andsignal intensity. The spinal cord is normal in caliber and signal intensity. There is no significant foraminal or spinalcanal stenosis. Paraspinal soft tissues are unremarkable. Bibasilar linear atelectasis.[facility] without & with IV [id number] 08:12:07EXAM: MR BRAIN WITH & WITHOUT IV CONTRAST, MR CERVICAL SPINE WITH &WITHOUT IV CONTRAST, MR ORBIT FACE NECK WITH & WITHOUT IV CONTRAST, MRTHORACIC SPINE WITH & WITHOUT IV CONTRAST CLINICAL INDICATION: Neuro deficit, acute, stroke suspectedDemyelinating disease. TECHNIQUE: Multiplanar, multisequence imaging of the brain and orbitswas performed before and after administration of intravenous contrast. COMPARISON: None. FINDINGS:MRI ORBITS: Right: Periorbital Soft Tissues: NormalGlobe: NormalOptic Nerve: Subtle T2 hyperintensity in the right optic nerveintraorbital segment is favored to be technical in nature. Otherwise, noabnormality. No associated enhancement.Extraocular Muscles: NormalIntraconal Fat: NormalExtraconal Fat: NormalLacrimal Gland: NormalOrbital [place]: NormalOpticCanal: NormalCavernous Sinus: Normal. Left:Periorbital Soft Tissues: NormalGlobe: NormalOptic Nerve: Normal in size and signal intensity, and without abnormalmass or enhancement. Extraocular Muscles:NormalIntraconal Fat: NormalExtraconal Fat: NormalLacrimal Gland: NormalOrbital [place]: NormalOptic Canal: NormalCavernous Sinus: Normal. Optic Chiasm and Tracts: Normal MRI BRAIN:Parenchyma: No infarction on DWI. No hemorrhage. No mass or mass effect.Minimal circumferential FLAIR hyperintensities Abnormal Enhancement: None Extra-axial Collection: None Ventricular System: Normal Major Intracranial Flow Voids: Normal Osseous Structures: Expected marrow signal. Paranasal Sinuses: Mild mucosal thickening in the inferior maxillarysinuses. Mild to moderate leftward convexity of the bony nasal septum. Tympanomastoid Cavities: Normal MR BRAIN WITH & WITHOUT IV CONTRAST,MR CERVICAL SPINE WITH & WITHOUT IV CONTRAST, MR ORBIT FACE NECK WITH& WITHOUT IV CONTRAST, MR THORACIC SPINE WITH & WITHOUT IV CONTRAST INDICATION: Neuro deficit, acute, stroke suspectedDemyelinating disease TECHNI QUE: Multiplanar, multisequence pre and postcontrast MR images ofthe cervical and thoracic spine were obtained. COMPARISON: None FINDINGS:Cervical Spine: The craniocervical junction is normal. Mild spondylosis and facet arthropathy are present within the spine. The vertebral bodies have normal height, alignment, and signalintensity. The spinal cord is normal in caliber and signal intensity. Paraspinal soft tissues are unremarkable. C2-C3: No significant spinal canal or neural foraminal stenosisC3-C4: No significant spinal canal or neural foraminal stenosis C4-C5: No significant spinal canal or neural foraminal stenosis C5-C6: No significant spinal canal or neural foraminal stenosis C6-C7: No significant spinal canal or neural foraminal stenosis C7-T1: No significant spinal canal or neural foraminal stenosis Thoracic spine: T1 hyperintense lesion in the anterior T1 vertebral body, suggesting avertebral hemangioma.T1 hyperintense vertebral hemangiomas are also seen at the T5 and [id number] bodies.Otherwise, the vertebral bodies have normal height, alignment, andsignal intensity. The spinal cord is normal in caliber and signal intensity. There is no significant foraminal or spinalcanal stenosis. Paraspinal soft tissues are unremarkable. Bibasilar linear atelectasis.[facility]MR Brain Without & With IV [id number] 08:12:07EXAM: MR BRAIN WITH & WITHOUT IV CONTRAST, MR CERVICAL SPINE WITH &WITHOUT IV CONTRAST, MR ORBIT FACE NECK WITH & WITHOUT IV CONTRAST, MRTHORACIC SPINE WITH & WITHOUT IV CONTRAST CLINICAL INDICATION: Neuro deficit, acute, stroke suspectedDemyelinating disease. TECHNIQUE: Multiplanar, multisequence imaging of the brain and orbitswas performed before and after administration of intravenous contrast. COMPARISON: None. FINDINGS:MRI ORBITS: Right: Periorbital Soft Tissues: NormalGlobe: NormalOptic Nerve: Subtle T2 hyperintensity in the right optic nerveintraorbital segment is favored to be technical in nature. Otherwise, noabnormality. No associated enhancement.Extraocular Muscles: NormalIntraconal Fat: NormalExtraconal Fat: NormalLacrimal Gland: NormalOrbital [place]: NormalOpticCanal: NormalCavernous Sinus: Normal. Left:Periorbital Soft Tissues: NormalGlobe: NormalOptic Nerve: Normal in size and signal intensity, and without abnormalmass or enhancement. Extraocular Muscles:NormalIntraconal Fat: NormalExtraconal Fat: NormalLacrimal Gland: NormalOrbital [place]: NormalOptic Canal: NormalCavernous Sinus: Normal. Optic Chiasm and Tracts: Normal MRI BRAIN:Parenchyma: No infarction on DWI. No hemorrhage. No mass or mass effect.Minimal circumferential FLAIR hyperintensities Abnormal Enhancement: None Extra-axial Collection: None Ventricular System: Normal Major Intracranial Flow Voids: Normal Osseous Structures: Expected marrow signal. Paranasal Sinuses: Mild mucosal thickening in the inferior maxillarysinuses. Mild to moderate leftward convexity of the bony nasal septum. Tympanomastoid Cavities: Normal MR BRAIN WITH & WITHOUT IV CONTRAST,MR CERVICAL SPINE WITH & WITHOUT IV CONTRAST, MR ORBIT FACE NECK WITH& WITHOUT IV CONTRAST, MR THORACIC SPINE WITH & WITHOUT IV CONTRAST INDICATION: Neuro deficit, acute, stroke suspectedDemyelinating disease TECHNI QUE: Multiplanar, multisequence pre and postcontrast MR images ofthe cervical and thoracic spine were obtained. COMPARISON: None FINDINGS:Cervical Spine: The craniocervical junction is normal. Mild spondylosis and facet arthropathy are present within the spine. The vertebral bodies have normal height, alignment, and signalintensity. The spinal cord is normal in caliber and signal intensity. Paraspinal soft tissues are unremarkable. C2-C3: No significant spinal canal or neural foraminal stenosisC3-C4: No significant spinal canal or neural foraminal stenosis C4-C5: No significant spinal canal or neural foraminal stenosis C5-C6: No significant spinal canal or neural foraminal stenosis C6-C7: No significant spinal canal or neural foraminal stenosis C7-T1: No significant spinal canal or neural foraminal stenosis Thoracic spine: T1 hyperintense lesion in the anterior T1 vertebral body, suggesting avertebral hemangioma.T1 hyperintense vertebral hemangiomas are also seen at the T5 and [id number] bodies.Otherwise, the vertebral bodies have normal height, alignment, andsignal intensity. The spinal cord is normal in caliber and signal intensity. There is no significant foraminal or spinalcanal stenosis. Paraspinal soft tissues are unremarkable. Bibasilar linear atelectasis.[facility]MR [facility] Without & With IV [id number] 08:12:07EXAM: MR BRAIN WITH & WITHOUT IV CONTRAST, MR CERVICAL SPINE WITH &WITHOUT IV CONTRAST, MR ORBIT FACE NECK WITH & WITHOUT IV CONTRAST, MRTHORACIC SPINE WITH & WITHOUT IV CONTRAST CLINICAL INDICATION: Neuro deficit, acute, stroke suspectedDemyelinating disease. TECHNIQUE: Multiplanar, multisequence imaging of the brain and orbitswas performed before and after administration of intravenous contrast. COMPARISON: None. FINDINGS:MRI ORBITS: Right: Periorbital Soft Tissues: NormalGlobe: NormalOptic Nerve: Subtle T2 hyperintensity in the right optic nerveintraorbital segment is favored to be technical in nature. Otherwise, noabnormality. No associated enhancement.Extraocular Muscles: NormalIntraconal Fat: NormalExtraconal Fat: NormalLacrimal Gland: NormalOrbital [place]: NormalOpticCanal: NormalCavernous Sinus: Normal. Left:Periorbital Soft Tissues: NormalGlobe: NormalOptic Nerve: Normal in size and signal intensity, and without abnormalmass or enhancement. Extraocular Muscles:NormalIntraconal Fat: NormalExtraconal Fat: NormalLacrimal Gland: NormalOrbital [place]: NormalOptic Canal: NormalCavernous Sinus: Normal. Optic Chiasm and Tracts: Normal MRI BRAIN:Parenchyma: No infarction on DWI. No hemorrhage. No mass or mass effect.Minimal circumferential FLAIR hyperintensities Abnormal Enhancement: None Extra-axial Collection: None Ventricular System: Normal Major Intracranial Flow Voids: Normal Osseous Structures: Expected marrow signal. Paranasal Sinuses: Mild mucosal thickening in the inferior maxillarysinuses. Mild to moderate leftward convexity of the bony nasal septum. Tympanomastoid Cavities: Normal MR BRAIN WITH & WITHOUT IV CONTRAST,MR CERVICAL SPINE WITH & WITHOUT IV CONTRAST, MR ORBIT FACE NECK WITH& WITHOUT IV CONTRAST, MR THORACIC SPINE WITH & WITHOUT IV CONTRAST INDICATION: Neuro deficit, acute, stroke suspectedDemyelinating disease TECHNI QUE: Multiplanar, multisequence pre and postcontrast MR images ofthe cervical and thoracic spine were obtained. COMPARISON: None FINDINGS:Cervical Spine: The craniocervical junction is normal. Mild spondylosis and facet arthropathy are present within the spine. The vertebral bodies have normal height, alignment, and signalintensity. The spinal cord is normal in caliber and signal intensity. Paraspinal soft tissues are unremarkable. C2-C3: No significant spinal canal or neural foraminal stenosisC3-C4: No significant spinal canal or neural foraminal stenosis C4-C5: No significant spinal canal or neural foraminal stenosis C5-C6: No significant spinal canal or neural foraminal stenosis C6-C7: No significant spinal canal or neural foraminal stenosis C7-T1: No significant spinal canal or neural foraminal stenosis Thoracic spine: T1 hyperintense lesion in the anterior T1 vertebral body, suggesting avertebral hemangioma.T1 hyperintense vertebral hemangiomas are also seen at the T5 and [id number] bodies.Otherwise, the vertebral bodies have normal height, alignment, andsignal intensity. The spinal cord is normal in caliber and signal intensity. There is no significant foraminal or spinalcanal stenosis. Paraspinal soft tissues are unremarkable. Bibasilar linear atelectasis.[facility]MR thoracic spine without & with IV [id number] 08:12:07EXAM: MR BRAIN WITH & WITHOUT IV CONTRAST, MR CERVICAL SPINE WITH &WITHOUT IV CONTRAST, MR ORBIT FACE NECK WITH & WITHOUT IV CONTRAST, MRTHORACIC SPINE WITH & WITHOUT IV CONTRAST CLINICAL INDICATION: Neuro deficit, acute, stroke suspectedDemyelinating disease. TECHNIQUE: Multiplanar, multisequence imaging of the brain and orbitswas performed before and after administration of intravenous contrast. COMPARISON: None. FINDINGS:MRI ORBITS: Right: Periorbital Soft Tissues: NormalGlobe: NormalOptic Nerve: Subtle T2 hyperintensity in the right optic nerveintraorbital segment is favored to be technical in nature. Otherwise, noabnormality. No associated enhancement.Extraocular Muscles: NormalIntraconal Fat: NormalExtraconal Fat: NormalLacrimal Gland: NormalOrbital [place]: NormalOptic Canal: NormalCavernous Sinus: Normal. Left:Periorbital Soft Tissues: NormalGlobe: NormalOptic Nerve: Normal in size and signal intensity, and without abnormalmass or enhancement. Extraocular Muscles:NormalIntraconal Fat: NormalExtraconal Fat: NormalLacrimal Gland: NormalOrbital [place]: NormalOptic Ca nal: NormalCavernous Sinus: Normal. Optic Chiasm and Tracts: Normal MRI BRAIN:Parenchyma: No infarction on DWI. No hemorrhage. No mass or mass effect.Minimal circumferential FLAIR hyperintensities Abnormal Enhancement: None Extra-axial Collection: None Ventricular System: Normal Major Intracranial Flow Voids: Normal Osseous Structures: Expected marrow signal. Paranasal Sinuses: Mild mucosal thickening in the inferior maxillarysinuses. Mild to moderate leftward convexity of the bony nasal septum. Tympanomastoid Cavities: Normal MR BRAIN WITH & WITHOUT IV CONTRAST,MR CERVICAL SPINE WITH & WITHOUT IV CONTRAST, MR ORBIT FACE NECK WITH& WITHOUT IV CONTRAST, MR THORACIC SPINE WITH & WITHOUT IV CONTRAST INDICATION: Neuro deficit, acute, stroke suspectedDemyelinating disease TECHNIQUE: Multiplanar, multisequence pre and postcontrast MR images ofthe cervical and thoracic spine were obtained. COMPARISON: None FINDINGS:Cervical Spine: The craniocervical junction is normal. Mild spondylosis and facet arthropathy are present within the spine. The vertebral bodies have normal height, alignment, and signalintensity. The spinal cord is normal in caliber and signal intensity. Paraspinal soft tissues are unremarkable. C2-C3: No significant spinal canal or neural foraminal stenosisC3- C4: No significant spinal canal or neural foraminal stenosis C4-C5: No significant spinal canal or neural foraminal stenosis C5-C6: No significant spinal canal or neural foraminal stenosis C6-C7: No significant spinal canal or neural foraminal stenosis C7-T1: No significant spinal canal or neural foraminal stenosis Thoracic spine: T1 hyperintense lesion in the anterior T1 vertebral body, suggesting avertebral hemangioma.T1 hyperintense vertebral hemangiomas are also seen at the T5 and [id number] bodies.Otherwise, the vertebral bodies have normal height, alignment, andsignal intensity. The spinal cord is normal in caliber and signal intensity. There is no significant foraminal or spinalcanal stenosis. Paraspinal soft tissues are unremarkable. Bibasilar linear atelectasis.[facility]MR thoracic spine without & with IV [id number] 08:12:07EXAM: MR BRAIN WITH & WITHOUT IV CONTRAST, MR CERVICAL SPINE WITH &WITHOUT IV CONTRAST, MR ORBIT FACE NECK WITH & WITHOUT IV CONTRAST, MRTHORACIC SPINE WITH & WITHOUT IV CONTRAST CLINICAL INDICATION: Neuro deficit, acute, stroke suspectedDemyelinating disease. TECHNIQUE: Multiplanar, multisequence imaging of the brain and orbitswas performed before and after administration of intravenous contrast. COMPARISON: None. FINDINGS:MRI ORBITS: Right: Periorbital Soft Tissues: NormalGlobe: NormalOptic Nerve: Subtle T2 hyperintensity in the right optic nerveintraorbital segment is favored to be technical in nature. Otherwise, noabnormality. No associated enhancement.Extraocular Muscles: NormalIntraconal Fat: NormalExtraconal Fat: NormalLacrimal Gland: NormalOrbital [place]: NormalOpticCanal: NormalCavernous Sinus: Normal. Left:Periorbital Soft Tissues: NormalGlobe: NormalOptic Nerve: Normal in size and signal intensity, and without abnormalmass or enhancement. Extraocular Muscles:NormalIntraconal Fat: NormalExtraconal Fat: NormalLacrimal Gland: NormalOrbital [place]: NormalOptic Canal: NormalCavernous Sinus: Normal. Optic Chiasm and Tracts: Normal MRI BRAIN:Parenchyma: No infarction on DWI. No hemorrhage. No mass or mass effect.Minimal circumferential FLAIR hyperintensities Abnormal Enhancement: None Extra-axial Collection: None Ventricular System: Normal Major Intracranial Flow Voids: Normal Osseous Structures: Expected marrow signal. Paranasal Sinuses: Mild mucosal thickening in the inferior maxillarysinuses. Mild to moderate leftward convexity of the bony nasal septum. Tympanomastoid Cavities: Normal MR BRAIN WITH & WITHOUT IV CONTRAST,MR CERVICAL SPINE WITH & WITHOUT IV CONTRAST, MR ORBIT FACE NECK WITH& WITHOUT IV CONTRAST, MR THORACIC SPINE WITH & WITHOUT IV CONTRAST INDICATION: Neuro deficit, acute, stroke suspectedDemyelinating disease TECHN IQUE: Multiplanar, multisequence pre and postcontrast MR images ofthe cervical and thoracic spine were obtained. COMPARISON: None FINDINGS:Cervical Spine: The craniocervical junction is normal. Mild spondylosis and facet arthropathy are present within the spine. The vertebral bodies have normal height, alignment, and signalintensity. The spinal cord is normal in caliber and signal intensity. Paraspinal soft tissues are unremarkable. C2-C3: No significant spinal canal or neural foraminal stenosis C3-C4: No significant spinal canal or neural foraminal stenosis C4-C5: No significant spinal canalor neural foraminal stenosis C5-C6: No significant spinal canal or neural foraminal stenosis C6-C7:No significant spinal canal or neural foraminal stenosis C7-T1: No significant spinal canal or neural foraminal stenosis Thoracic spine: T1 hyperintense lesion in the anterior T1 vertebral body, suggesting avertebral hemangioma.T1 hyperintense vertebral hemangiomas are also seen at the T5 and [id number] bodies.Otherwise, the vertebral bodies have normal height, alignment, andsignal intensity. The spinal cord is normal in caliber and signal intensity. There is no significant foraminal or spinal canal stenosis. Paraspinal soft tissues are unremarkable. Bibasilar linear atelectasis.[facility] CERVICAL SPINE WITH & WITHOUT IV [id number] 08:12:07 [facility] : 1975 Sex: MEXAM: MR BRAIN WITH & WITHOUT IV CONTRAST, MR CERVICAL SPINE WITH &WITHOUT IV CONTRAST, MR ORBIT FACE NECK WITH & WITHOUT IV CONTRAST, MRTHORACIC SPINE WITH & WITHOUT IV CONTRASTCLINICAL INDICATION: Neuro deficit, acute, stroke suspectedDemyelinating disease.TECHNIQUE: Multiplanar, multisequence imaging of the brain and orbitswas performed before and after administration of intravenous contrast.COMPARISON: None.FINDINGS:MRI ORBITS:Right: Periorbital Soft Tissues: N ormalGlobe: NormalOptic Nerve: Subtle T2 hyperintensity in the right optic nerveintraorbital segment is favored to be technical in nature. Otherwise, noabnormality. No associated enhancement.Extraocular Muscles: NormalIntraconal Fat: NormalExtraconal Fat: NormalLacrimal Gland: NormalOrbital [place]: NormalOptic Canal: NormalCavernous Sinus: Normal.Left:Periorbital Soft Tissues: NormalGlobe: NormalOptic Nerve: Normal in size and signal intensity, and without abnormalmass or enhancement. ExtraocularMuscles: NormalIntraconal Fat: NormalExtraconal Fat: NormalLacrimal Gland: NormalOrbital [place]: NormalOptic Canal: NormalCavernous Sinus: Normal.Optic Chiasm and Tracts: NormalMRI BRAIN:Parenchyma: Noinfarction on DWI. No hemorrhage. No mass or mass effect.Minimal circumferential FLAIR hyperintensitiesAbnormal Enhancement: NoneExtra-axial Collection: NoneVentricular System: NormalMajor Intracranial Flow Voids: NormalOsseous Structures: Expected marrow signal.Paranasal Sinuses: Mild mucosal thickening in the inferior maxillarysinuses. Mild to moderate leftward convexity of the bony nasal septum.Tympanomastoid Cavities: Normal MR BRAIN WITH & WITHOUT IV CONTRAST,MR CERVICAL SPINE WITH & WITHOUT IV CONTRAST, MR ORBIT FACE NECK WITH& WITHOUT IV CONTRAST, MR THORACIC SPINE WITH & WITHOUT IV CONTRASTINDICATION: Neuro deficit, acute, stroke suspectedDemyelinating diseaseTECHNIQUE: Multiplanar, multisequence pre and postcontrast MR images ofthe cervical and thoracic spine wereobtained. COMPARISON: NoneFINDINGS:Cervical Spine:The craniocervical junction is normal. Mild spondylosis and facet arthropathy are present within the spine. The vertebral bodies have normal height, alignment, and signalintensity. The spinal cord is normal in caliber and signal intensity. Paraspinal soft tissues are unremarkable.C2-C3: No significant spinal canal or neural foraminal stenosisC3-C4: No significant spinal canal or neural foraminal stenosisC4-C5: No significant spinal canal or neural foraminal stenosisC5-C6: No significant spinal canal or neural foraminal stenosisC6-C7: No significant spinal canal or neural foraminal stenosis C7-T1: No significant spinal canal or neural foraminal stenosisThoracic spine:T1 hyperintense lesion in the anterior T1 vertebral body, suggesting avertebral hemangioma.T1 hyperintense vertebral hemangiomas are also seen at the T5 and [id number] bodies.Otherwise, the vertebral bodies have normal height, alignment, andsignal intensity. The spinal cord is normal in caliber and signal intensity. There is no significant foraminal or spinal canal stenosis.Paraspinal soft tissues are unremarkable.Bibasilar linear atelectasis.IMPRESSION:1. A few subtle FLAIR hyperintensities in the cerebral white matterfavor chronic small vessel ischemic changes. Nodefinite demyelinatingdisease.2. Subtle FLAIR hyperintensity in the right optic nerve intraorbitalsegment is favored to be technical in nature. No definite abnormality ofthe orbits identified.3. No demyelinating disease identified in the cervical or thoracicspinal cord.Electronically Signed By: Hansel Bell05/27/2025 08:14 CDTWorkstation Name: [id number] ORBIT FACE NECK WITH & WITHOUT IV [id number] 08:12:07 [facility] : 1975 Sex: MEXAM: MR BRAIN WITH & WITHOUT IV CONTRAST, MR CERVICAL SPINE WITH &WITHOUT IV CONTRAST, MR ORBIT FACE NECK WITH & WITHOUT IV CONTRAST, MRTHORACIC SPINE WITH & WITHOUT IV CONTRASTCLINICAL INDICATION: Neuro deficit, acute, stroke suspectedDemyelinating disease.TECHNIQUE: Multiplanar, multisequence imaging of the brain and orbitswas performed before and after administration of intravenous contrast.COMPARISON: None.FINDINGS:MRI ORBITS:Right: Periorbital Soft Tissues: N ormalGlobe: NormalOptic Nerve: Subtle T2 hyperintensity in the right optic nerveintraorbital segment is favored to be technical in nature. Otherwise, noabnormality. No associated enhancement.Extraocular Muscles: NormalIntraconal Fat: NormalExtraconal Fat: NormalLacrimal Gland: NormalOrbital [place]: NormalOptic Canal: NormalCavernous Sinus: Normal.Left:Periorbital Soft Tissues: NormalGlobe: NormalOptic Nerve: Normal in size and signal intensity, and without abnormalmass or enhancement. ExtraocularMuscles: NormalIntraconal Fat: NormalExtraconal Fat: NormalLacrimal Gland: NormalOrbital [place]: NormalOptic Canal: NormalCavernous Sinus: Normal.Optic Chiasm and Tracts: NormalMRI BRAIN:Parenchyma: Noinfarction on DWI. No hemorrhage. No mass or mass effect.Minimal circumferential FLAIR hyperintensitiesAbnormal Enhancement: NoneExtra-axial Collection: NoneVentricular System: NormalMajor Intracranial Flow Voids: NormalOsseous Structures: Expected marrow signal.Paranasal Sinuses: Mild mucosal thickening in the inferior maxillarysinuses. Mild to moderate leftward convexity of the bony nasal septum.Tympanomastoid Cavities: Normal MR BRAIN WITH & WITHOUT IV CONTRAST,MR CERVICAL SPINE WITH & WITHOUT IV CONTRAST, MR ORBIT FACE NECK WITH& WITHOUT IV CONTRAST, MR THORACIC SPINE WITH & WITHOUT IV CONTRASTINDICATION: Neuro deficit, acute, stroke suspectedDemyelinating diseaseTECHNIQUE: Multiplanar, multisequence pre and postcontrast MR images ofthe cervical and thoracic spine wereobtained. COMPARISON: NoneFINDINGS:Cervical Spine:The craniocervical junction is normal. Mild spondylosis and facet arthropathy are present within the spine. The vertebral bodies have normal height, alignment, and signalintensity. The spinal cord is normal in caliber and signal intensity. Paraspinal soft tissues are unremarkable.C2-C3: No significant spinal canal or neural foraminal stenosisC3-C4: No significant spinal canal or neural foraminal stenosisC4-C5: No significant spinal canal or neural foraminal stenosisC5-C6: No significant spinal canal or neural foraminal stenosisC6-C7: No significant spinal canal or neural foraminal stenosis C7-T1: No significant spinal canal or neural foraminal stenosisThoracic spine:T1 hyperintense lesion in the anterior T1 vertebral body, suggesting avertebral hemangioma.T1 hyperintense vertebral hemangiomas are also seen at the T5 and A10iwxdrmund bodies.Otherwise, the vertebral bodies have normal height, alignment, andsignal intensity. The spinal cord is normal in caliber and signal intensity. There is no significant foraminal or spinal canal stenosis.Paraspinal soft tissues are unremarkable.Bibasilar linear atelectasis.IMPRESSION:1. A few subtle FLAIR hyperintensities in the cerebral white matterfavor chronic small vessel ischemic changes. Nodefinite demyelinatingdisease.2. Subtle FLAIR hyperintensity in the right optic nerve intraorbitalsegment is favored to be technical in nature. No definite abnormality ofthe orbits identified.3. No demyelinating disease identified in the cervical or thoracicspinal cord.Electronically Signed By: Hansel Bell05/27/2025 08:14 CDTWorkstation Name: [id number] BRAIN WITH & WITHOUT IV [id number] 08:12:07 [facility] : 1975 Sex: MEXAM: MR BRAIN WITH & WITHOUT IV CONTRAST, MR CERVICAL SPINE WITH &WITHOUT IV CONTRAST, MR ORBIT FACE NECK WITH & WITHOUT IV CONTRAST, MRTHORACIC SPINE WITH & WITHOUT IV CONTRASTCLINICAL INDICATION: Neuro deficit, acute, stroke suspectedDemyelinating disease.TECHNIQUE: Multiplanar, multisequence imaging of the brain and orbitswas performed before and after administration of intravenous contrast.COMPARISON: None.FINDINGS:MRI ORBITS:Right: Periorbital Soft Tissues: N ormalGlobe: NormalOptic Nerve: Subtle T2 hyperintensity in the right optic nerveintraorbital segment is favored to be technical in nature. Otherwise, noabnormality. No associated enhancement.Extraocular Muscles: NormalIntraconal Fat: NormalExtraconal Fat: NormalLacrimal Gland: NormalOrbital [place]: NormalOptic Canal: NormalCavernous Sinus: Normal.Left:Periorbital Soft Tissues: NormalGlobe: NormalOptic Nerve: Normal in size and signal intensity, and without abnormalmass or enhancement. ExtraocularMuscles: NormalIntraconal Fat: NormalExtraconal Fat: NormalLacrimal Gland: NormalOrbital [place]: NormalOptic Canal: NormalCavernous Sinus: Normal.Optic Chiasm and Tracts: NormalMRI BRAIN:Parenchyma: Noinfarction on DWI. No hemorrhage. No mass or mass effect.Minimal circumferential FLAIR hyperintensitiesAbnormal Enhancement: NoneExtra-axial Collection: NoneVentricular System: NormalMajor Intracranial Flow Voids: NormalOsseous Structures: Expected marrow signal.Paranasal Sinuses: Mild mucosal thickening in the inferior maxillarysinuses. Mild to moderate leftward convexity of the bony nasal septum.Tympanomastoid Cavities: Normal MR BRAIN WITH & WITHOUT IV CONTRAST,MR CERVICAL SPINE WITH & WITHOUT IV CONTRAST, MR ORBIT FACE NECK WITH& WITHOUT IV CONTRAST, MR THORACIC SPINE WITH & WITHOUT IV CONTRASTINDICATION: Neuro deficit, acute, stroke suspectedDemyelinating diseaseTECHNIQUE: Multiplanar, multisequence pre and postcontrast MR images ofthe cervical and thoracic spine wereobtained. COMPARISON: NoneFINDINGS:Cervical Spine:The craniocervical junction is normal. Mild spondylosis and facet arthropathy are present within the spine. The vertebral bodies have normal height, alignment, and signalintensity. The spinal cord is normal in caliber and signal intensity. Paraspinal soft tissues are unremarkable.C2-C3: No significant spinal canal or neural foraminal stenosisC3-C4: No significant spinal canal or neural foraminal stenosisC4-C5: No significant spinal canal or neural foraminal stenosisC5-C6: No significant spinal canal or neural foraminal stenosisC6-C7: No significant spinal canal or neural foraminal stenosis C7-T1: No significant spinal canal or neural foraminal stenosisThoracic spine:T1 hyperintense lesion in the anterior T1 vertebral body, suggesting avertebral hemangioma.T1 hyperintense vertebral hemangiomas are also seen at the T5 and W07wfnkkkydu bodies.Otherwise, the vertebral bodies have normal height, alignment, andsignal intensity. The spinal cord is normal in caliber and signal intensity. There is no significant foraminal or spinal canal stenosis.Paraspinal soft tissues are unremarkable.Bibasilar linear atelectasis.IMPRESSION:1. A few subtle FLAIR hyperintensities in the cerebral white matterfavor chronic small vessel ischemic changes. Nodefinite demyelinatingdisease.2. Subtle FLAIR hyperintensity in the right optic nerve intraorbitalsegment is favored to be technical in nature. No definite abnormality ofthe orbits identified.3. No demyelinating disease identified in the cervical or thoracicspinal cord.Electronically Signed By: Hansel Bell05/27/2025 08:14 CDTWorkstation Name: [id number] THORACIC SPINE WITH & WITHOUT IV [id number] 08:12:07 [facility] : 1975 Sex: MEXAM: MR BRAIN WITH & WITHOUT IV CONTRAST, MR CERVICAL SPINE WITH &WITHOUT IV CONTRAST, MR ORBIT FACE NECK WITH & WITHOUT IV CONTRAST, MRTHORACIC SPINE WITH & WITHOUT IV CONTRASTCLINICAL INDICATION: Neuro deficit, acute, stroke suspectedDemyelinating disease.TECHNIQUE: Multiplanar, multisequence imaging of the brain and orbitswas performed before and after administration of intravenous contrast.COMPARISON: None.FINDINGS:MRI ORBITS:Right: Periorbital Soft Tissues: N ormalGlobe: NormalOptic Nerve: Subtle T2 hyperintensity in the right optic nerveintraorbital segment is favored to be technical in nature. Otherwise, noabnormality. No associated enhancement.Extraocular Muscles: NormalIntraconal Fat: NormalExtraconal Fat: NormalLacrimal Gland: NormalOrbital [place]: NormalOptic Canal: NormalCavernous Sinus: Normal.Left:Periorbital Soft Tissues: NormalGlobe: NormalOptic Nerve: Normal in size and signal intensity, and without abnormalmass or enhancement. ExtraocularMuscles: NormalIntraconal Fat: NormalExtraconal Fat: NormalLacrimal Gland: NormalOrbital [place]: NormalOptic Canal: NormalCavernous Sinus: Normal.Optic Chiasm and Tracts: NormalMRI BRAIN:Parenchyma: Noinfarction on DWI. No hemorrhage. No mass or mass effect.Minimal circumferential FLAIR hyperintensitiesAbnormal Enhancement: NoneExtra-axial Collection: NoneVentricular System: NormalMajor Intracranial Flow Voids: NormalOsseous Structures: Expected marrow signal.Paranasal Sinuses: Mild mucosal thickening in the inferior maxillarysinuses. Mild to moderate leftward convexity of the bony nasal septum.Tympanomastoid Cavities: Normal MR BRAIN WITH & WITHOUT IV CONTRAST,MR CERVICAL SPINE WITH & WITHOUT IV CONTRAST, MR ORBIT FACE NECK WITH& WITHOUT IV CONTRAST, MR THORACIC SPINE WITH & WITHOUT IV CONTRASTINDICATION: Neuro deficit, acute, stroke suspectedDemyelinating diseaseTECHNIQUE: Multiplanar, multisequence pre and postcontrast MR images ofthe cervical and thoracic spine wereobtained. COMPARISON: NoneFINDINGS:Cervical Spine:The craniocervical junction is normal. Mild spondylosis and facet arthropathy are present within the spine. The vertebral bodies have normal height, alignment, and signalintensity. The spinal cord is normal in caliber and signal intensity. Paraspinal soft tissues are unremarkable.C2-C3: No significant spinal canal or neural foraminal stenosisC3-C4: No significant spinal canal or neural foraminal stenosisC4-C5: No significant spinal canal or neural foraminal stenosisC5-C6: No significant spinal canal or neural foraminal stenosisC6-C7: No significant spinal canal or neural foraminal stenosis C7-T1: No significant spinal canal or neural foraminal stenosisThoracic spine:T1 hyperintense lesion in the anterior T1 vertebral body, suggesting avertebral hemangioma.T1 hyperintense vertebral hemangiomas are also seen at the T5 and M86wfogkkfkg bodies.Otherwise, the vertebral bodies have normal height, alignment, andsignal intensity. The spinal cord is normal in caliber and signal intensity. There is no significant foraminal or spinal canal stenosis.Paraspinal soft tissues are unremarkable.Bibasilar linear atelectasis.IMPRESSION:1. A few subtle FLAIR hyperintensities in the cerebral white matterfavor chronic small vessel ischemic changes. Nodefinite demyelinatingdisease.2. Subtle FLAIR hyperintensity in the right optic nerve intraorbitalsegment is favored to be technical in nature. No definite abnormality ofthe orbits identified.3. No demyelinating disease identified in the cervical or thoracicspinal cord.Electronically Signed By: Hansel Bell05/27/2025 08:14 CDTWorkstation Name: [id number] METER 2025-05-27 07:54:02* Test Item Value Reference Range Interpretation Comme nts POC-GLUCOSE METER (BEAKER) (test code = 1538) 241 mg/dL 70-110 H : TESTED AT [facility] [address] [facility], [address]: Fundraising Coordinator/Manager Testing ID = [id number] for Yesi Hudson POCT-GLUCOSE [id number] 22:02:58* Test Item Value Reference Range Interpretation Comme nts POC-GLUCOSE METER (BEAKER) (test code = 1538) 135 mg/dL 70-110 H : TESTED AT [facility] [address] [facility], [address]: Fundraising Coordinator/Manager Testing ID = [id number] for Pepe Zaidi POCT-GLUCOSE [id number] 19:48:31* Test Item Value Reference Range Interpretation Comme nts POC-GLUCOSE METER (BEAKER) (test code = 1538) 136 mg/dL 70-110 H : TESTED AT [facility] [address] [facility], [address]: Fundraising Coordinator/Manager Testing ID = [id number] for Cameron Guerra POCT-GLUCOSE [id number] 11:50:23* Test Item Value Reference Range Interpretation Comme nts POC-GLUCOSE METER (BEAKER) (test code = 1538) 104 mg/dL 70-110 : TESTED AT [facility] [address] [facility], [address]: Fundraising Coordinator/Manager Testing ID = [id number] for Yesi Hudson POCT-GLUCOSE [id number] 09:01:01* Test Item Value Reference Range Interpretation Comme nts POC-GLUCOSE METER (BEAKER) (test code = 1538) 118 mg/dL 70-110 H : TESTED AT [place] [id number] [facility], [address]: Fundraising Coordinator/Manager Testing ID = [id number] for Yesi Hudson CBC W/PLT COUNT & AUTO [id number] 06:26:28* Test Item Value Reference Range Interpretation Comme nts WHITE BLOOD CELL COUNT (BEAK ER) (test code = 775) 10.2 K/ L 3.5-10.5 RED BLOOD CELL COUNT (BEAKER ) (test code = 761) 5.25 M/ L 4.63-6.08 HEMOGLOBIN (BEAKER) (test co de = 410) 15.8 GM/DL 13.7-17.5 HEMATOCRIT (BEAKER) (test co de = 411) 47.5 % 40.1-51.0 MEAN CORPUSCULAR VOLUME (YULISSA KER) (test code = 753) 91 fL 79-92 MEAN CORPUSCULAR HEMOGLOBIN (BEAKER) (test code = 751) 30.1 pg 25.7-32.2 MEAN CORPUSCULAR HEMOGLOBIN CONC (BEAKER) (test code = 752) 33.3 GM/DL 32.3-36.5 RED CELL DISTRIBUTION WIDTH (BEAKER) (test code = 412) 13.1 % 11.6-14.4 PLATELET COUNT (BEAKER) (velma t code = 756) 282 K/CU MM 150-450 MEAN PLATELET VOLUME (BEAKER ) (test code = 754) 9.2 fL 9.4-12.4 L NUCLEATED RED BLOOD CELLS (BEAKER) (test code = 413) 0 /100 WBC 0-0 NEUTROPHILS RELATIVE PERCENT (BEAKER) (test code = 429) 55 % LYMPHOCYTES RELATIVE PERCENT (BEAKER) (test code = 430) 36 % MONOCYTES RELATIVE PERCENT (BEAKER) (test code = 431) 5 % EOSINOPHILS RELATIVE PERCENT (BEAKER) (test code = 432) 2 % BASOPHILS RELATIVE PERCENT (BEAKER) (test code = 437) 0 % NEUTROPHILS ABSOLUTE COUNT (BEAKER) (test code = 670) 5.67 K/ L 1.78-5.38 H LYMPHOCYTES ABSOLUTE COUNT (BEAKER) (test code = 414) 3.69 K/ L 1.32-3.57 H MONOCYTES ABSOLUTE COUNT (BE DARIN) (test code = 415) 0.54 K/ L 0.30-0.82 EOSINOPHILS ABSOLUTE COUNT (BEAKER) (test code = 416) 0.23 K/ L 0.04-0.54 BASOPHILS ABSOLUTE COUNT (BE DARIN) (test code = 417) 0.04 K/ L 0.01-0.08 IMMATURE GRANULOCYTES-RELATI VE PERCENT (BEAKER) (test code = 2801) 0.60 % 0.00-1.00 [id number] 06:18:03* Test Item Value Reference Range Interpretation Comme nts MAGNESIUM (BEAKER) (test cod e = 627) 2.4 mg/dL 1.6-2.6 [id number] 06:18:03* Test Item Value Reference Range Interpretation Comme nts PHOSPHORUS (BEAKER) (test co de = 604) 3.6 mg/dL 2.5-4.5 POCT-GLUCOSE [id number] 22:02:20* Test Item Value Reference Range Interpretation Comme nts POC-GLUCOSE METER (BEAKER) (test code = 1538) 114 mg/dL 70-110 H : TESTED AT [facility] [address] [facility], [address]: Fundraising Coordinator/Manager Testing ID = [id number] for Rebekah Zaidialphonso POCT-GLUCOSE [id number] 16:38:48* Test Item Value Reference Range Interpretation Comme nts POC-GLUCOSE METER (BEAKER) (test code = 1538) 203 mg/dL 70-110 H : TESTED AT [facility] [address] [facility], [address]: Fundraising Coordinator/Manager Testing ID = [id number] for Jayshree Morales POCT-GLUCOSE [id number] 11:29:19* Test Item Value Reference Range Interpretation Comme nts POC-GLUCOSE METER (BEAKER) (test code = 1538) 120 mg/dL 70-110 H : Notified RN/MD : TESTED AT [address], [address]: Fundraising Coordinator/Manager Testing ID = [id number] for Jayshree Morales POCT-GLUCOSE [id number] 08:07:47* Test Item Value Reference Range Interpretation Comme nts POC-GLUCOSE METER (BEAKER) (test code = 1538) 138 mg/dL 70-110 H : Notified RN/MD : TESTED AT [address], [address]: Fundraising Coordinator/Manager Testing ID = [id number] for Jayshree Morales [id number] 05:45:12* Test Item Value Reference Range Interpretation Comme nts MAGNESIUM (BEAKER) (test cod e = 627) 2.3 mg/dL 1.6-2.6 [id number] 05:45:12* Test Item Value Reference Range Interpretation Comme nts PHOSPHORUS (BEAKER) (test co de = 604) 3.7 mg/dL 2.5-4.5 CBC W/PLT COUNT & AUTO [id number] 05:15:17* Test Item Value Reference Range Interpretation Comme nts WHITE BLOOD CELL COUNT (BEAK ER) (test code = 775) 10.3 K/ L 3.5-10.5 RED BLOOD CELL COUNT (BEAKER ) (test code = 761) 4.95 M/ L 4.63-6.08 HEMOGLOBIN (BEAKER) (test co de = 410) 14.9 GM/DL 13.7-17.5 HEMATOCRIT (BEAKER) (test co de = 411) 44.7 % 40.1-51.0 MEAN CORPUSCULAR VOLUME (YULISSA KER) (test code = 753) 90 fL 79-92 MEAN CORPUSCULAR HEMOGLOBIN (BEAKER) (test code = 751) 30.1 pg 25.7-32.2 MEAN CORPUSCULAR HEMOGLOBIN CONC (BEAKER) (test code = 752) 33.3 GM/DL 32.3-36.5 RED CELL DISTRIBUTION WIDTH (BEAKER) (test code = 412) 13.1 % 11.6-14.4 PLATELET COUNT (BEAKER) (velma t code = 756) 268 K/CU MM 150-450 MEAN PLATELET VOLUME (BEAKER ) (test code = 754) 9.2 fL 9.4-12.4 L NUCLEATED RED BLOOD CELLS (BEAKER) (test code = 413) 0 /100 WBC 0-0 NEUTROPHILS RELATIVE PERCENT (BEAKER) (test code = 429) 63 % LYMPHOCYTES RELATIVE PERCENT (BEAKER) (test code = 430) 28 % MONOCYTES RELATIVE PERCENT (BEAKER) (test code = 431) 7 % EOSINOPHILS RELATIVE PERCENT (BEAKER) (test code = 432) 2 % BASOPHILS RELATIVE PERCENT (BEAKER) (test code = 437) 0 % NEUTROPHILS ABSOLUTE COUNT (BEAKER) (test code = 670) 6.44 K/ L 1.78-5.38 H LYMPHOCYTES ABSOLUTE COUNT (BEAKER) (test code = 414) 2.93 K/ L 1.32-3.57 MONOCYTES ABSOLUTE COUNT (BE DARIN) (test code = 415) 0.68 K/ L 0.30-0.82 EOSINOPHILS ABSOLUTE COUNT (BEAKER) (test code = 416) 0.17 K/ L 0.04-0.54 BASOPHILS ABSOLUTE COUNT (BE DARIN) (test code = 417) 0.03 K/ L 0.01-0.08 IMMATURE GRANULOCYTES-RELATI VE PERCENT (BEAKER) (test code = 2801) 0.60 % 0.00-1.00 POCT-GLUCOSE [id number] 21:48:05* Test Item Value Reference Range Interpretation Comme nts POC-GLUCOSE METER (BEAKER) (test code = 1538) 122 mg/dL 70-110 H : Notified RN/MD : TESTED AT [address], [address]: Fundraising Coordinator/Manager Testing ID = [id number] for MANPREET Hand POCT-GLUCOSE [id number] 17:06:16* Test Item Value Reference Range Interpretation Comme nts POC-GLUCOSE METER (BEAKER) (test code = 1538) 277 mg/dL 70-110 H : TESTED AT [facility] [address] [facility], [address]: Fundraising Coordinator/Manager Testing ID = [id number] for Mary Flores POCT-GLUCOSE [id number] 11:49:45* Test Item Value Reference Range Interpretation Comme nts POC-GLUCOSE METER (BEAKER) (test code = 1538) 107 mg/dL 70-110 : TESTED AT [place] [address] [facility], [address]: Fundraising Coordinator/Manager Testing ID = [id number] for Mary Flores POCT-GLUCOSE [id number] 07:46:45* Test Item Value Reference Range Interpretation Comme nts POC-GLUCOSE METER (BEAKER) (test code = 1538) 122 mg/dL 70-110 H : TESTED AT [address], [address]: Fundraising Coordinator/Manager Testing ID = [id number] for Mary Flores [id number] 05:36:41* Test Item Value Reference Range Interpretation Comme nts MAGNESIUM (BEAKER) (test cod e = 627) 2.3 mg/dL 1.6-2.6 [id number] 05:36:41* Test Item Value Reference Range Interpretation Comme nts PHOSPHORUS (BEAKER) (test co de = 604) 4.2 mg/dL 2.5-4.5 CBC W/PLT COUNT & AUTO [id number] 05:31:54* Test Item Value Reference Range Interpretation Comme nts WHITE BLOOD CELL COUNT (BEAK ER) (test code = 775) 15.1 K/ L 3.5-10.5 H RED BLOOD CELL COUNT (BEAKER ) (test code = 761) 5.01 M/ L 4.63-6.08 HEMOGLOBIN (BEAKER) (test co de = 410) 14.9 GM/DL 13.7-17.5 HEMATOCRIT (BEAKER) (test co de = 411) 45.1 % 40.1-51.0 MEAN CORPUSCULAR VOLUME (YULISSA KER) (test code = 753) 90 fL 79-92 MEAN CORPUSCULAR HEMOGLOBIN (BEAKER) (test code = 751) 29.7 pg 25.7-32.2 MEAN CORPUSCULAR HEMOGLOBIN CONC (BEAKER) (test code = 752) 33.0 GM/DL 32.3-36.5 RED CELL DISTRIBUTION WIDTH (BEAKER) (test code = 412) 13.4 % 11.6-14.4 PLATELET COUNT (BEAKER) (velma t code = 756) 291 K/CU MM 150-450 MEAN PLATELET VOLUME (BEAKER ) (test code = 754) 9.3 fL 9.4-12.4 L NUCLEATED RED BLOOD CELLS (BEAKER) (test code = 413) 0 /100 WBC 0-0 NEUTROPHILS RELATIVE PERCENT (BEAKER) (test code = 429) 63 % LYMPHOCYTES RELATIVE PERCENT (BEAKER) (test code = 430) 29 % MONOCYTES RELATIVE PERCENT (BEAKER) (test code = 431) 7 % EOSINOPHILS RELATIVE PERCENT (BEAKER) (test code = 432) 0 % BASOPHILS RELATIVE PERCENT (BEAKER) (test code = 437) 0 % NEUTROPHILS ABSOLUTE COUNT (BEAKER) (test code = 670) 9.56 K/ L 1.78-5.38 H LYMPHOCYTES ABSOLUTE COUNT (BEAKER) (test code = 414) 4.34 K/ L 1.32-3.57 H MONOCYTES ABSOLUTE COUNT (BE DARIN) (test code = 415) 1.04 K/ L 0.30-0.82 H EOSINOPHILS ABSOLUTE COUNT (BEAKER) (test code = 416) 0.06 K/ L 0.04-0.54 BASOPHILS ABSOLUTE COUNT (BE DARIN) (test code = 417) 0.02 K/ L 0.01-0.08 IMMATURE GRANULOCYTES-RELATI VE PERCENT (BEAKER) (test code = 2801) 0.50 % 0.00-1.00 POCT-GLUCOSE [id number] 22:58:11* Test Item Value Reference Range Interpretation Comme nts POC-GLUCOSE METER (BEAKER) (test code = 1538) 139 mg/dL 70-110 H : Notified RN/MD : TESTED AT [address], [address]: Fundraising Coordinator/Manager Testing ID = [id number] for MANPREET Hand POCT-GLUCOSE [id number] 16:45:32* Test Item Value Reference Range Interpretation Comme nts POC-GLUCOSE METER (BEAKER) (test code = 1538) 271 mg/dL 70-110 H : TESTED AT [facility] [address] [facility], [address]: Fundraising Coordinator/Manager Testing ID = [id number] for Coulman, Maria L Urinalysis w/Microscopic + Reflex to [id number] 13:31:17* Test Item Value Reference Range Interpretation Comme nts Color, UA (test code = 5778-6) Yellow Clarity, UA (test code = 5767-9) Clear Specific [place], UA (test code = 5811-5) 1.035 1.001-1.035 pH, UA (test code = 5803-2) 6.0 5.0-8.0 Protein, UA (test code = 05593-6) 20 mg/dL Negative A Glucose, UA (test code = 365) Negative Negative Ketones, UA (test code = 2514-8) Negative Negative Bilirubin, UA (test code = 95677-0) Negative Negative Blood, UA (test code = 93364-9) Negative Negative Nitrite, UA (test code = 5802-4) Negative Negative Leukocytes, UA (test code = 5799-2) Negative Negative Urobilinogen, UA (test code = 96788-5) 2 0.2-1.0 H RBC, UA (test code = 46317-6) 2 See_Comment [Automated message] The system which generated this result transmitted reference range: /HPF. The reference range was not used to interpret this result as normal/abnormal. WBC, UA (test code = 5821-4) 2 See_Comment [Automated message] The system which generated this result transmitted reference range: /HPF. The reference range was not used to interpret this result as normal/abnormal. Mucus (test code = 8247-9) Occasional Squam Epithel, UA (test code = 06852-9) See_Comment [Automated message] The system which generated this result transmitted reference range: /HPF. The reference range was not used to interpret this result as normal/abnormal. Specimen Source (test code = 2795) LAURIE (test code = LAURIE) Fundraising Coordinator ID - [auto]Fundraising Coordinator ID - tech Lab Interpretation (test code = 61402-6) [facility]lex to Culture 2025-05-23 13:31:17* Test Item Value Reference Range Interpretation Comme nts Color, UA (test code = 5778-6) Yellow Clarity, UA (test code = 5767-9) Clear Specific [place], UA (test code = 5811-5) 1.035 1.001-1.035 pH, UA (test code = 5803-2) 6 5.0-8.0 Protein, UA (test code = 47992-0) 20 mg/dL Negative A Glucose, UA (test code = 365) Negative Negative Ketones, UA (test code = 2514-8) Negative Negative Bilirubin, UA (test code = 93665-8) Negative Negative Blood, UA (test code = 21879-0) Negative Negative Nitrite, UA (test code = 5802-4) Negative Negative Leukocytes, UA (test code = 5799-2) Negative Negative Urobilinogen, UA (test code = 34258-6) 2 0.2-1.0 H RBC, UA (test code = 98757-1) 2 See_Comment [Automated message] The system which generated this result transmitted reference range: /HPF. The reference range was not used to interpret this result as normal/abnormal. WBC, UA (test code = 5821-4) 2 See_Comment [Automated message] The system which generated this result transmitted reference range: /HPF. The reference range was not used to interpret this result as normal/abnormal. Mucus (test code = 8247-9) Occasional Squam Epithel, UA (test code = 74696-4) See_Comment [Automated message] The system which generated this result transmitted reference range: /HPF. The reference range was not used to interpret this result as normal/abnormal. Specimen Source (test code = 2795) LAURIE (test code = LAURIE) Fundraising Coordinator ID - [auto]Fundraising Coordinator ID - tech Lab Interpretation (test code = 89049-5) [facility]normal [facility]FLEX URINE [id number] 13:31:17 * Test Item Value Reference Range Interpretation Comme nts COLOR (BEAKER) (test code = 470) Yellow CLARITY (BEAKER) (test code = 469) Clear SPECIFIC GRAVITY UA (BEAKER) (test code = 468) 1.035 1.001-1.035 PH UA (BEAKER) (test code = 467) 6.0 5.0-8.0 PROTEIN UA (BEAKER) (test co de = 464) 20 mg/dL Negative A GLUCOSE UA (BEAKER) (test co de = 365) Negative Negative KETONES UA (BEAKER) (test co de = 371) Negative Negative BILIRUBIN UA (BEAKER) (test code = 462) Negative Negative BLOOD UA (BEAKER) (test code = 461) Negative Negative NITRITE UA (BEAKER) (test co de = 465) Negative Negative LEUKOCYTE ESTERASE UA (BEAKE R) (test code = 466) Negative Negative UROBILINOGEN UA (BEAKER) (te st code = 463) 2 0.2-1.0 H RBC UA (BEAKER) (test code = 519) 2 /HPF WBC UA (BEAKER) (test code = 520) 2 /HPF MUCUS (BEAKER) (test code = 1574) Occasional SQUAMOUS EPITHELIAL (BEAKER) (test code = 516) < /HPF SOURCE(BEAKER) (test code = 2795) Fundraising Coordinator ID - [auto]Fundraising Coordinator ID - techPROTEIN S [id number] 12:33:53* Test Item Value Reference Range Interpretation Comme nts PROTEIN S ACTIVITY (BKR) (te st code = 0571987402) 115.0 % 63.5-149.0 Fundraising Coordinator ID -XR chest 1 view portable / [id number] 12:27:32TECHNIQUE: Frontal view of the chest. INDICATION: sob. COMPARISON: None. [facility] / [id number] 12:27:32 TECHNIQUE: Frontal view of the chest. INDICATION: sob. COMPARISON: None. FINDINGS/[facility] PORT[facility] / [id number] 12:27:32[facility] : 1975 Sex: MTECHNIQUE: Frontal view of the chest.INDICATION: sob.COMPARISON: None.FINDINGS/IMPRES NHI:Study limited by body habitus.LINES/ TUBES/ HARDWARE: Overlying EKG leads.LUNGS/ PLEURA: Mildly prominent bronchovascular markings. No overtpneumothorax. No significant pleural effusion.HEART AND MEDIASTINUM: The cardiac silhouette is partially obscured.Prominent pulmonary vasculature.SOFT TISSUES AND BONES: Limited evaluation of the spine. Otherwise,remaining grossly unremarkable.Electronically Signed By: Shima Wei05/23/2025 12:29 CDTWorkstation Name: [id number] 11:34:04* Test Item Value Reference Range Interpretation Comme nts POC-GLUCOSE METER (BEAKER) (test code = 1538) 124 mg/dL 70-110 H : TESTED AT [address], [address]: Fundraising Coordinator/Manager Testing ID = [id number] for Maria L Murguia POCT-GLUCOSE [id number] 07:35:45* Test Item Value Reference Range Interpretation Comme nts POC-GLUCOSE METER (BEAKER) (test code = 1538) 138 mg/dL 70-110 H : TESTED AT [address], [address]: Fundraising Coordinator/Manager Testing ID = [id number] for Maria L Murguia [id number] 05:39:57* Test Item Value Reference Range Interpretation Comme nts MAGNESIUM (BEAKER) (test cod e = 627) 2.2 mg/dL 1.6-2.6 [id number] 05:39:57* Test Item Value Reference Range Interpretation Comme nts PHOSPHORUS (BEAKER) (test co de = 604) 3.4 mg/dL 2.5-4.5 CBC W/PLT COUNT & AUTO [id number] 05:31:44* Test Item Value Reference Range Interpretation Comme nts WHITE BLOOD CELL COUNT (BEAK ER) (test code = 775) 23.3 K/ L 3.5-10.5 H RED BLOOD CELL COUNT (BEAKER ) (test code = 761) 4.81 M/ L 4.63-6.08 HEMOGLOBIN (BEAKER) (test co de = 410) 14.2 GM/DL 13.7-17.5 HEMATOCRIT (BEAKER) (test co de = 411) 43.1 % 40.1-51.0 MEAN CORPUSCULAR VOLUME (YULISSA KER) (test code = 753) 90 fL 79-92 MEAN CORPUSCULAR HEMOGLOBIN (BEAKER) (test code = 751) 29.5 pg 25.7-32.2 MEAN CORPUSCULAR HEMOGLOBIN CONC (BEAKER) (test code = 752) 32.9 GM/DL 32.3-36.5 RED CELL DISTRIBUTION WIDTH (BEAKER) (test code = 412) 13.4 % 11.6-14.4 PLATELET COUNT (BEAKER) (velma t code = 756) 310 K/CU MM 150-450 MEAN PLATELET VOLUME (BEAKER ) (test code = 754) 9.3 fL 9.4-12.4 L NUCLEATED RED BLOOD CELLS (BEAKER) (test code = 413) 0 /100 WBC 0-0 NEUTROPHILS RELATIVE PERCENT (BEAKER) (test code = 429) 83 % LYMPHOCYTES RELATIVE PERCENT (BEAKER) (test code = 430) 11 % MONOCYTES RELATIVE PERCENT (BEAKER) (test code = 431) 5 % EOSINOPHILS RELATIVE PERCENT (BEAKER) (test code = 432) 0 % BASOPHILS RELATIVE PERCENT (BEAKER) (test code = 437) 0 % NEUTROPHILS ABSOLUTE COUNT (BEAKER) (test code = 670) 19.44 K/ L 1.78-5.38 H LYMPHOCYTES ABSOLUTE COUNT (BEAKER) (test code = 414) 2.50 K/ L 1.32-3.57 MONOCYTES ABSOLUTE COUNT (BE DARIN) (test code = 415) 1.23 K/ L 0.30-0.82 H EOSINOPHILS ABSOLUTE COUNT (BEAKER) (test code = 416) 0.00 K/ L 0.04-0.54 L BASOPHILS ABSOLUTE COUNT (BE DARIN) (test code = 417) 0.01 K/ L 0.01-0.08 IMMATURE GRANULOCYTES-RELATI VE PERCENT (BEAKER) (test code = 2801) 0.60 % 0.00-1.00 POCT-GLUCOSE [id number] 19:32:47* Test Item Value Reference Range Interpretation Comme nts POC-GLUCOSE METER (BEAKER) (test code = 1538) 324 mg/dL 70-110 H : TESTED AT [facility] [address] [facility], [address]: Fundraising Coordinator/Manager Testing ID = [id number] for Yesi Hudson POCT-GLUCOSE [id number] 16:53:41* Test Item Value Reference Range Interpretation Comme nts POC-GLUCOSE METER (BEAKER) (test code = 1538) 272 mg/dL 70-110 H : TESTED AT [facility] [address] [facility], [address]: Fundraising Coordinator/Manager Testing ID = [id number] for Maria L Murguia POCT-GLUCOSE [id number] 11:44:35* Test Item Value Reference Range Interpretation Comme nts POC-GLUCOSE METER (BEAKER) (test code = 1538) 233 mg/dL 70-110 H : TESTED AT [facility] [address] [facility], [address]: Fundraising Coordinator/Manager Testing ID = [id number] for Maria L Murguia (CELLAVISION MANUAL DIFF)2025-05-22 08:56:43* Test Item Value Reference Range Interpretation Comme nts NEUTROPHILS - REL (CELLAVISION)(BEAKER) (test code = 2816) 94 % LYMPHOCYTES - REL (CELLAVISION)(BEAKER) (test code = 2817) 4 % MONOCYTES - REL (CELLAVISION)(BEAKER) (test code = 2818) 2 % NEUTROPHILS - ABS (CELLAVISION)(BEAKER) (test code = 2830) 23.12 K/ul 1.78-5.38 H LYMPHOCYTES - ABS (CELLAVISION)(BEAKER) (test code = 2831) 0.98 K/ul 1.32-3.57 L MONOCYTES - ABS (CELLAVISION)(BEAKER) (test code = 2832) 0.49 K/uL 0.30-0.82 TOTAL COUNTED (BEAKER) (test code = 1351) 100 RBC MORPHOLOGY (BEAKER) (velma t code = 762) Normal WBC MORPHOLOGY (BEAKER) (velma t code = 487) Normal PLT MORPHOLOGY (BEAKER) (velma t code = 486) Normal ARTIFACT (CELLAVISION)(BEAKE R) (test code = 3432) Present PLATELET CONCENTRATION (CELLAVISION)(BEAKER) (test code = 3438) Adequate Fundraising Coordinator ID - Marilyn OverholtUser comments: Slide comments:CBC W/PLT COUNT & AUTO [id number] 08:56:42* Test Item Value Reference Range Interpretation Comme nts WHITE BLOOD CELL COUNT (BEAK ER) (test code = 775) 24.6 K/ L 3.5-10.5 H RED BLOOD CELL COUNT (BEAKER ) (test code = 761) 4.76 M/ L 4.63-6.08 HEMOGLOBIN (BEAKER) (test co de = 410) 14.6 GM/DL 13.7-17.5 HEMATOCRIT (BEAKER) (test co de = 411) 44.0 % 40.1-51.0 MEAN CORPUSCULAR VOLUME (YULISSA KER) (test code = 753) 92 fL 79-92 MEAN CORPUSCULAR HEMOGLOBIN (BEAKER) (test code = 751) 30.7 pg 25.7-32.2 MEAN CORPUSCULAR HEMOGLOBIN CONC (BEAKER) (test code = 752) 33.2 GM/DL 32.3-36.5 RED CELL DISTRIBUTION WIDTH (BEAKER) (test code = 412) 13.2 % 11.6-14.4 PLATELET COUNT (BEAKER) (velma t code = 756) 296 K/CU MM 150-450 MEAN PLATELET VOLUME (BEAKER ) (test code = 754) 9.5 fL 9.4-12.4 NUCLEATED RED BLOOD CELLS (BEAKER) (test code = 413) 0 /100 WBC 0-0 POCT-GLUCOSE [id number] 07:37:11* Test Item Value Reference Range Interpretation Comme nts POC-GLUCOSE METER (BEAKER) (test code = 1538) 245 mg/dL 70-110 H : TESTED AT [facility] [address] [place] [address], [address]: Fundraising Coordinator/Manager Testing ID = [id number] for Maria L Murguia [id number] 06:09:54* Test Item Value Reference Range Interpretation Comme nts MAGNESIUM (BEAKER) (test code = 627) 2.0 mg/dL 1.6-2.6 Specimen sligh tly hemolyzed [id number] 06:09:54* Test Item Value Reference Range Interpretation Comme nts PHOSPHORUS (BEAKER) (test code = 604) 2.8 mg/dL 2.5-4.5 Specimen sligh tly hemolyzed POCT-GLUCOSE [id number] 20:04:50* Test Item Value Reference Range Interpretation Comme nts POC-GLUCOSE METER (BEAKER) (test code = 1538) 292 mg/dL 70-110 H : TESTED AT [facility] [address] [facility], [address]: Fundraising Coordinator/Manager Testing ID = [id number] for Pepe Zaidi POCT-GLUCOSE [id number] 17:48:42* Test Item Value Reference Range Interpretation Comme nts POC-GLUCOSE METER (BEAKER) (test code = 1538) 270 mg/dL 70-110 H : TESTED AT [address], [address]: Fundraising Coordinator/Manager Testing ID = [id number] for JOSLYN VARGAS POCT-GLUCOSE [id number] 08:57:53* Test Item Value Reference Range Interpretation Comme nts POC-GLUCOSE METER (BEAKER) (test code = 1538) 182 mg/dL 70-110 H : TESTED AT [address], [address]: Fundraising Coordinator/Manager Testing ID = [id number] for SAMJOSLYN [id number] 06:05:14* Test Item Value Reference Range Interpretation Comme nts MAGNESIUM (BEAKER) (test cod e = 627) 2.1 mg/dL 1.6-2.6 [id number] 06:05:14* Test Item Value Reference Range Interpretation Comme nts PHOSPHORUS (BEAKER) (test co de = 604) 2.1 mg/dL 2.5-4.5 L CBC W/PLT COUNT & AUTO [id number] 05:44:33* Test Item Value Reference Range Interpretation Comme nts WHITE BLOOD CELL COUNT (BEAK ER) (test code = 775) 12.0 K/ L 3.5-10.5 H RED BLOOD CELL COUNT (BEAKER ) (test code = 761) 5.15 M/ L 4.63-6.08 HEMOGLOBIN (BEAKER) (test co de = 410) 15.4 GM/DL 13.7-17.5 HEMATOCRIT (BEAKER) (test co de = 411) 46.5 % 40.1-51.0 MEAN CORPUSCULAR VOLUME (YULISSA KER) (test code = 753) 90 fL 79-92 MEAN CORPUSCULAR HEMOGLOBIN (BEAKER) (test code = 751) 29.9 pg 25.7-32.2 MEAN CORPUSCULAR HEMOGLOBIN CONC (BEAKER) (test code = 752) 33.1 GM/DL 32.3-36.5 RED CELL DISTRIBUTION WIDTH (BEAKER) (test code = 412) 12.7 % 11.6-14.4 PLATELET COUNT (BEAKER) (velma t code = 756) 305 K/CU MM 150-450 MEAN PLATELET VOLUME (BEAKER ) (test code = 754) 9.3 fL 9.4-12.4 L NUCLEATED RED BLOOD CELLS (BEAKER) (test code = 413) 0 /100 WBC 0-0 NEUTROPHILS RELATIVE PERCENT (BEAKER) (test code = 429) 89 % LYMPHOCYTES RELATIVE PERCENT (BEAKER) (test code = 430) 10 % MONOCYTES RELATIVE PERCENT (BEAKER) (test code = 431) 0 % EOSINOPHILS RELATIVE PERCENT (BEAKER) (test code = 432) 0 % BASOPHILS RELATIVE PERCENT (BEAKER) (test code = 437) 0 % NEUTROPHILS ABSOLUTE COUNT (BEAKER) (test code = 670) 10.75 K/ L 1.78-5.38 H LYMPHOCYTES ABSOLUTE COUNT (BEAKER) (test code = 414) 1.17 K/ L 1.32-3.57 L MONOCYTES ABSOLUTE COUNT (BE DARIN) (test code = 415) 0.05 K/ L 0.30-0.82 L EOSINOPHILS ABSOLUTE COUNT (BEAKER) (test code = 416) 0.00 K/ L 0.04-0.54 L BASOPHILS ABSOLUTE COUNT (BE DARIN) (test code = 417) 0.01 K/ L 0.01-0.08 IMMATURE GRANULOCYTES-RELATI VE PERCENT (BEAKER) (test code = 2801) 0.50 % 0.00-1.00 POCT-GLUCOSE [id number] 19:28:08* Test Item Value Reference Range Interpretation Comme nts POC-GLUCOSE METER (BEAKER) (test code = 1538) 121 mg/dL 70-110 H : TESTED AT [facility] [address] [facility], [address]: Fundraising Coordinator/Manager Testing ID = [id number] for Yesi Hudson POCT-GLUCOSE [id number] 17:42:06* Test Item Value Reference Range Interpretation Comme nts POC-GLUCOSE METER (BEAKER) (test code = 1538) 106 mg/dL 70-110 : TESTED AT [facility] [address] [facility], [address]: Fundraising Coordinator/Manager Testing ID = [id number] for Mary Flores POCT-GLUCOSE [id number] 13:17:56* Test Item Value Reference Range Interpretation Comme nts POC-GLUCOSE METER (BEAKER) (test code = 1538) 186 mg/dL 70-110 H : TESTED AT [facility] [address] [facility], [address]: Fundraising Coordinator/Manager Testing ID = [id number] for Mary Flores BASIC METABOLIC [id number] 09:09:08* Test Item Value Reference Range Interpretation Comme nts SODIUM (BEAKER) (test code = 381) 140 meq/L 136-145 POTASSIUM (BEAKER) (test code = 379) 4.4 meq/L 3.5-5.1 CHLORIDE (BEAKER) (test code = 382) 107 meq/L 98-107 CO2 (BEAKER) (test code = 355) 24 meq/L 22-29 BLOOD UREA NITROGEN (BEAKER) (test code = 354) 15 mg/dL 9-21 CREATININE (BEAKER) (test code = 358) 0.80 mg/dL 0.60-1.30 GLUCOSE RANDOM (BEAKER) (test code = 652) 108 mg/dL 70-105 H CALCIUM (BEAKER) (test code = 697) 9.1 mg/dL 8.4-10.2 EGFR (BEAKER) (test code = 1092) 110 mL/min/1.73 sq m Interpretation of eG FR values Stage Description Result G1 Normal or high >=90 G2 Mildly decreased 60-89 G3a Mildly to moderately 45-59 G3b Moderately to severely 30-44 G4 Severly decreased 15-29 G5 Kidney failure <15Reported eGFR is based on the CKD-EPI 2021 equation that does not use a race coefficientEstimated GFR is not as accurate as Creatinine Clearance in predicting glomerular filtration rate. Estimated GFR is not applicable for dialysis patients POCT-GLUCOSE [id number] 07:55:50* Test Item Value Reference Range Interpretation Comme nts POC-GLUCOSE METER (BEAKER) (test code = 1538) 120 mg/dL 70-110 H : TESTED AT [facility] [address] [facility], [address]: Fundraising Coordinator/Manager Testing ID = [id number] for Mary Flores CBC W/PLT COUNT & AUTO [id number] 07:22:56* Test Item Value Reference Range Interpretation Comme nts WHITE BLOOD CELL COUNT (BEAK ER) (test code = 775) 8.1 K/ L 3.5-10.5 RED BLOOD CELL COUNT (BEAKER ) (test code = 761) 5.24 M/ L 4.63-6.08 HEMOGLOBIN (BEAKER) (test co de = 410) 15.9 GM/DL 13.7-17.5 HEMATOCRIT (BEAKER) (test co de = 411) 48.5 % 40.1-51.0 MEAN CORPUSCULAR VOLUME (YULSISA KER) (test code = 753) 93 fL 79-92 H MEAN CORPUSCULAR HEMOGLOBIN (BEAKER) (test code = 751) 30.3 pg 25.7-32.2 MEAN CORPUSCULAR HEMOGLOBIN CONC (BEAKER) (test code = 752) 32.8 GM/DL 32.3-36.5 RED CELL DISTRIBUTION WIDTH (BEAKER) (test code = 412) 13.2 % 11.6-14.4 PLATELET COUNT (BEAKER) (velma t code = 756) 282 K/CU MM 150-450 MEAN PLATELET VOLUME (BEAKER ) (test code = 754) 9.3 fL 9.4-12.4 L NUCLEATED RED BLOOD CELLS (BEAKER) (test code = 413) 0 /100 WBC 0-0 NEUTROPHILS RELATIVE PERCENT (BEAKER) (test code = 429) 59 % LYMPHOCYTES RELATIVE PERCENT (BEAKER) (test code = 430) 32 % MONOCYTES RELATIVE PERCENT (BEAKER) (test code = 431) 6 % EOSINOPHILS RELATIVE PERCENT (BEAKER) (test code = 432) 2 % BASOPHILS RELATIVE PERCENT (BEAKER) (test code = 437) 1 % NEUTROPHILS ABSOLUTE COUNT (BEAKER) (test code = 670) 4.75 K/ L 1.78-5.38 LYMPHOCYTES ABSOLUTE COUNT (BEAKER) (test code = 414) 2.60 K/ L 1.32-3.57 MONOCYTES ABSOLUTE COUNT (BE DARIN) (test code = 415) 0.48 K/ L 0.30-0.82 EOSINOPHILS ABSOLUTE COUNT (BEAKER) (test code = 416) 0.19 K/ L 0.04-0.54 BASOPHILS ABSOLUTE COUNT (BE DARIN) (test code = 417) 0.07 K/ L 0.01-0.08 IMMATURE GRANULOCYTES-RELATI VE PERCENT (BEAKER) (test code = 2801) 0.40 % 0.00-1.00 [id number] 06:47:25* Test Item Value Reference Range Interpretation Comme nts PHOSPHORUS (BEAKER) (test co de = 604) 3.6 mg/dL 2.5-4.5 [id number] 06:47:20* Test Item Value Reference Range Interpretation Comme nts MAGNESIUM (BEAKER) (test cod e = 627) 2.1 mg/dL 1.6-2.6 POCT-GLUCOSE [id number] 21:29:31* Test Item Value Reference Range Interpretation Comme nts POC-GLUCOSE METER (BEAKER) (test code = 1538) 116 mg/dL 70-110 H : TESTED AT [address], [address]: Fundraising Coordinator/Manager Testing ID = [id number] for Lorena Toussaint POCT-GLUCOSE [id number] 16:55:56* Test Item Value Reference Range Interpretation Comme nts POC-GLUCOSE METER (BEAKER) (test code = 1538) 100 mg/dL 70-110 : TESTED AT [address], [address]: Fundraising Coordinator/Manager Testing ID = [id number] for Mark, Mary POCT-GLUCOSE [id number] 12:35:21* Test Item Value Reference Range Interpretation Comme nts POC-GLUCOSE METER (BEAKER) (test code = 1538) 149 mg/dL 70-110 H : TESTED AT [address], [address]: Fundraising Coordinator/Manager Testing ID = [id number] for Mark, Mary POCT-GLUCOSE [id number] 08:51:08* Test Item Value Reference Range Interpretation Comme nts POC-GLUCOSE METER (BEAKER) (test code = 1538) 116 mg/dL 70-110 H : TESTED AT [address], [address]: Fundraising Coordinator/Manager Testing ID = [id number] for Mark, Mary [id number] 05:57:06* Test Item Value Reference Range Interpretation Comme nts MAGNESIUM (BEAKER) (test cod e = 627) 2.1 mg/dL 1.6-2.6 [id number] 05:57:06* Test Item Value Reference Range Interpretation Comme nts PHOSPHORUS (BEAKER) (test co de = 604) 3.2 mg/dL 2.5-4.5 CBC W/PLT COUNT & AUTO [id number] 05:51:19* Test Item Value Reference Range Interpretation Comme nts WHITE BLOOD CELL COUNT (BEAKER) (test code = 775) 8.1 K/ L 3.5-10.5 RED BLOOD CELL COUNT (BEAKER) (test code = 761) 5.15 M/ L 4.63-6.08 HEMOGLOBIN (BEAKER) (test code = 410) 15.0 GM/DL 13.7-17.5 HEMATOCRIT (BEAKER) (test code = 411) 46.2 % 40.1-51.0 MEAN CORPUSCULAR VOLUME (BEAKER) (test code = 753) 90 fL 79-92 Discordant resul t compared to previous result. Clinical correlation required. MEAN CORPUSCULAR HEMOGLOBIN (BEAKER) (test code = 751) 29.1 pg 25.7-32.2 MEAN CORPUSCULAR HEMOGLOBIN CONC (BEAKER) (test code = 752) 32.5 GM/DL 32.3-36.5 RED CELL DISTRIBUTION WIDTH (BEAKER) (test code = 412) 13.1 % 11.6-14.4 PLATELET COUNT (BEAKER) (test code = 756) 287 K/CU MM 150-450 MEAN PLATELET VOLUME (BEAKER) (test code = 754) 9.0 fL 9.4-12.4 L NUCLEATED RED BLOOD CELLS (BEAKER) (test code = 413) 0 /100 WBC 0-0 NEUTROPHILS RELATIVE PERCENT (BEAKER) (test code = 429) 58 % LYMPHOCYTES RELATIVE PERCENT (BEAKER) (test code = 430) 33 % MONOCYTES RELATIVE PERCENT (BEAKER) (test code = 431) 6 % EOSINOPHILS RELATIVE PERCENT (BEAKER) (test code = 432) 2 % BASOPHILS RELATIVE PERCENT (BEAKER) (test code = 437) 1 % NEUTROPHILS ABSOLUTE COUNT (BEAKER) (test code = 670) 4.70 K/ L 1.78-5.38 LYMPHOCYTES ABSOLUTE COUNT (BEAKER) (test code = 414) 2.64 K/ L 1.32-3.57 MONOCYTES ABSOLUTE COUNT (BEAKER) (test code = 415) 0.50 K/ L 0.30-0.82 EOSINOPHILS ABSOLUTE COUNT (BEAKER) (test code = 416) 0.16 K/ L 0.04-0.54 BASOPHILS ABSOLUTE COUNT (BEAKER) (test code = 417) 0.08 K/ L 0.01-0.08 IMMATURE GRANULOCYTES-RELATIVE PERCENT (BEAKER) (test code = 2801) 0.50 % 0.00-1.00 POCT-GLUCOSE [id number] 20:20:47* Test Item Value Reference Range Interpretation Comme nts POC-GLUCOSE METER (BEAKER) (test code = 1538) 144 mg/dL 70-110 H : TESTED AT [address], [address]: Fundraising Coordinator/Manager Testing ID = [id number] for Pepe Zaidi POCT-GLUCOSE [id number] 13:41:19* Test Item Value Reference Range Interpretation Comme nts POC-GLUCOSE METER (BEAKER) (test code = 1538) 114 mg/dL 70-110 H : TESTED AT [facility] [address] [facility], [address]: Fundraising Coordinator/Manager Testing ID = [id number] for SAW VARGASILIA POCT-GLUCOSE [id number] 07:49:12* Test Item Value Reference Range Interpretation Comme nts POC-GLUCOSE METER (BEAKER) (test code = 1538) 135 mg/dL 70-110 H : TESTED AT [place] [id number] [facility], [address]: Fundraising Coordinator/Manager Testing ID = [id number] for SAW VARGASILIA [id number] 06:16:05* Test Item Value Reference Range Interpretation Comme nts MAGNESIUM (BEAKER) (test cod e = 627) 2.1 mg/dL 1.6-2.6 [id number] 06:16:05* Test Item Value Reference Range Interpretation Comme nts PHOSPHORUS (BEAKER) (test co de = 604) 3.6 mg/dL 2.5-4.5 CBC W/PLT COUNT & AUTO [id number] 06:10:21* Test Item Value Reference Range Interpretation Comme nts WHITE BLOOD CELL COUNT (BEAK ER) (test code = 775) 10.7 K/ L 3.5-10.5 H RED BLOOD CELL COUNT (BEAKER ) (test code = 761) 5.19 M/ L 4.63-6.08 HEMOGLOBIN (BEAKER) (test co de = 410) 15.5 GM/DL 13.7-17.5 HEMATOCRIT (BEAKER) (test co de = 411) 48.7 % 40.1-51.0 MEAN CORPUSCULAR VOLUME (YULISSA KER) (test code = 753) 94 fL 79-92 H MEAN CORPUSCULAR HEMOGLOBIN (BEAKER) (test code = 751) 29.9 pg 25.7-32.2 MEAN CORPUSCULAR HEMOGLOBIN CONC (BEAKER) (test code = 752) 31.8 GM/DL 32.3-36.5 L RED CELL DISTRIBUTION WIDTH (BEAKER) (test code = 412) 13.1 % 11.6-14.4 PLATELET COUNT (BEAKER) (velma t code = 756) 328 K/CU MM 150-450 MEAN PLATELET VOLUME (BEAKER ) (test code = 754) 9.5 fL 9.4-12.4 NUCLEATED RED BLOOD CELLS (BEAKER) (test code = 413) 0 /100 WBC 0-0 NEUTROPHILS RELATIVE PERCENT (BEAKER) (test code = 429) 63 % LYMPHOCYTES RELATIVE PERCENT (BEAKER) (test code = 430) 28 % MONOCYTES RELATIVE PERCENT (BEAKER) (test code = 431) 6 % EOSINOPHILS RELATIVE PERCENT (BEAKER) (test code = 432) 2 % BASOPHILS RELATIVE PERCENT (BEAKER) (test code = 437) 1 % NEUTROPHILS ABSOLUTE COUNT (BEAKER) (test code = 670) 6.70 K/ L 1.78-5.38 H LYMPHOCYTES ABSOLUTE COUNT (BEAKER) (test code = 414) 3.00 K/ L 1.32-3.57 MONOCYTES ABSOLUTE COUNT (BE DARIN) (test code = 415) 0.68 K/ L 0.30-0.82 EOSINOPHILS ABSOLUTE COUNT (BEAKER) (test code = 416) 0.21 K/ L 0.04-0.54 BASOPHILS ABSOLUTE COUNT (BE DARIN) (test code = 417) 0.09 K/ L 0.01-0.08 H IMMATURE GRANULOCYTES-RELATI VE PERCENT (BEAKER) (test code = 2801) 0.40 % 0.00-1.00 POCT-GLUCOSE [id number] 21:27:50* Test Item Value Reference Range Interpretation Comme nts POC-GLUCOSE METER (BEAKER) (test code = 1538) 134 mg/dL 70-110 H : TESTED AT [address], [address]: Fundraising Coordinator/Manager Testing ID = [id number] for RICARDA MORALES POCT-GLUCOSE [id number] 17:07:35* Test Item Value Reference Range Interpretation Comme nts POC-GLUCOSE METER (BEAKER) (test code = 1538) 229 mg/dL 70-110 H : Notified RN/MD : TESTED AT [address], [address]: Fundraising Coordinator/Manager Testing ID = [id number] for Jayshree Morales POCT-GLUCOSE [id number] 12:05:20* Test Item Value Reference Range Interpretation Comme nts POC-GLUCOSE METER (BEAKER) (test code = 1538) 131 mg/dL 70-110 H : Notified RN/MD : TESTED AT [address], [address]: Fundraising Coordinator/Manager Testing ID = [id number] for Jayshree Morales POCT-GLUCOSE [id number] 07:32:01* Test Item Value Reference Range Interpretation Comme nts POC-GLUCOSE METER (BEAKER) (test code = 1538) 129 mg/dL 70-110 H : Notified RN/MD : TESTED AT [address], [address]: Fundraising Coordinator/Manager Testing ID = [id number] for Jayshree Morales [id number] 04:47:04* Test Item Value Reference Range Interpretation Comme nts MAGNESIUM (BEAKER) (test cod e = 627) 2.1 mg/dL 1.6-2.6 [id number] 04:47:04* Test Item Value Reference Range Interpretation Comme nts PHOSPHORUS (BEAKER) (test co de = 604) 4.1 mg/dL 2.5-4.5 CBC W/PLT COUNT & AUTO [id number] 04:16:26* Test Item Value Reference Range Interpretation Comme nts WHITE BLOOD CELL COUNT (BEAK ER) (test code = 775) 9.9 K/ L 3.5-10.5 RED BLOOD CELL COUNT (BEAKER ) (test code = 761) 5.32 M/ L 4.63-6.08 HEMOGLOBIN (BEAKER) (test co de = 410) 15.9 GM/DL 13.7-17.5 HEMATOCRIT (BEAKER) (test co de = 411) 48.6 % 40.1-51.0 MEAN CORPUSCULAR VOLUME (YULISSA KER) (test code = 753) 91 fL 79-92 MEAN CORPUSCULAR HEMOGLOBIN (BEAKER) (test code = 751) 29.9 pg 25.7-32.2 MEAN CORPUSCULAR HEMOGLOBIN CONC (BEAKER) (test code = 752) 32.7 GM/DL 32.3-36.5 RED CELL DISTRIBUTION WIDTH (BEAKER) (test code = 412) 13.2 % 11.6-14.4 PLATELET COUNT (BEAKER) (velma t code = 756) 313 K/CU MM 150-450 MEAN PLATELET VOLUME (BEAKER ) (test code = 754) 9.3 fL 9.4-12.4 L NUCLEATED RED BLOOD CELLS (BEAKER) (test code = 413) 0 /100 WBC 0-0 NEUTROPHILS RELATIVE PERCENT (BEAKER) (test code = 429) 56 % LYMPHOCYTES RELATIVE PERCENT (BEAKER) (test code = 430) 33 % MONOCYTES RELATIVE PERCENT (BEAKER) (test code = 431) 8 % EOSINOPHILS RELATIVE PERCENT (BEAKER) (test code = 432) 2 % BASOPHILS RELATIVE PERCENT (BEAKER) (test code = 437) 1 % NEUTROPHILS ABSOLUTE COUNT (BEAKER) (test code = 670) 5.58 K/ L 1.78-5.38 H LYMPHOCYTES ABSOLUTE COUNT (BEAKER) (test code = 414) 3.28 K/ L 1.32-3.57 MONOCYTES ABSOLUTE COUNT (BE DARIN) (test code = 415) 0.74 K/ L 0.30-0.82 EOSINOPHILS ABSOLUTE COUNT (BEAKER) (test code = 416) 0.18 K/ L 0.04-0.54 BASOPHILS ABSOLUTE COUNT (BE DARIN) (test code = 417) 0.08 K/ L 0.01-0.08 IMMATURE GRANULOCYTES-RELATI VE PERCENT (BEAKER) (test code = 2801) 0.40 % 0.00-1.00 POCT-GLUCOSE [id number] 19:47:12* Test Item Value Reference Range Interpretation Comme nts POC-GLUCOSE METER (BEAKER) (test code = 1538) 148 mg/dL 70-110 H : TESTED AT [facility] [address] [facility], [id number]: Fundraising Coordinator/Manager Testing ID = [id number] for Pepe Zaidi POCT-GLUCOSE [id number] 18:06:06* Test Item Value Reference Range Interpretation Comme nts POC-GLUCOSE METER (BEAKER) (test code = 1538) 128 mg/dL 70-110 H : Notified RN/MD : TESTED AT [facility] [address] [facility], [id number]: Fundraising Coordinator/Manager Testing ID = [id number] for Jayshree Morales LUPUS ANTICOAGULANT SCREEN WITH REFLEX TO [id number] 16:39:35* Test Item Value Reference Range Interpretation Comme nts PROTIME (BEAKER) (test code = 759) 10.9 seconds 9.9-12.7 INR (BEAKER) (test code = 370) 0.96 See Comment PARTIAL THROMBOPLASTIN TIME (BEAKER) (test code = 760) 31.8 seconds 26.8-37.1 SILICA CLOTTING TIME SCREEN RATIO (BKR) (test code = 2326282142) 0.87 Ratio <=1.16 SILICA CLOTTING TIME CONFIRM RATIO (BKR) (test code = 8997814335) 0.94 Ratio SILICA CLOTTING TIME NORMALIZED RATIO (test code = 9401067901) 0.93 Ratio <=1.16 DRVV SCREEN RATIO (BEAKER) (test code = 2707) 0.91 Ratio <=1.20 DRVV CONFIRM RATIO (test code = 2709) 0.90 Ratio DRVV NORMALIZED RATIO (test code = 2710) 1.01 Ratio <=1.20 DRVV INTERPRETATION (BEAKER) (test code = 2406) Negative screen for Lupus Anticoagulant Seconds [id number] (BEAKER) (test code = 2610) Scot Wallace M.D. (electonic signature) Fundraising Coordinator ID - Fundraising Coordinator ID -SARS-CoV2/RT-PCR (Admitted ONLY)2025-05-16 12:27:51* Test Item Value Reference Range Interpretation Comments SARS-COV2/RT-PCR (test code = 52338-2) Negative Negative The SARS-CoV-2 target nucleic acids are not detected in this specimen. Negative results do not preclude SARS-CoV-2 infection and should not be used as the sole basis for patient management decisions. Negative results must be combined with clinical observations, patient history, and epidemiological information. A false negative result may occur if a specimen is improperly collected, transported or handled. This SARS CoV-2 test is a rapid, real-time RT-PCR test intended for the qualitative detection of nucleic acid from SARS-CoV-2 in a nasopharyngeal swab specimen collected from individuals suspected of COVID-19 by their healthcare provider. LAURIE (test code = LAURIE) This test has been authorized by FDA under an EUA for use by authorized laboratories. This test is only authorized for the duration of the declaration that circumstances exist justifying the authorization of emergency use of in vitro diagnostic tests for detection and/or diagnosis of COVID-19 under Section 564(b)(1) of the Federal Food, Drug and Cosmetic Act, 21 U.S.C. § 360bbb-3(b)(1), unless the authorization is terminated or revoked sooner. Fact Sheet for Healthcare Providers: https://www.121nexus/Documents/Xp ert%20Xpress%20SAR S%20CoV-2/Fact%20S heets/302-3802%20S ARS-COV-2%20HEALTH CARE%20PROVIDERS%2 0FACT%20SHEET.pdf Fact Sheet for Healthcare Patients: https://www.121nexus/Documents/Xp ert%20Xpress%20SAR S%20CoV-2/Fact%20S heets/302-3801%20S ARS-COV-2%20PATIEN T%20FACT%20SHEET.p df Lab Interpretation (test code = 05474-5) [facility]-16 12:27:51* Test Item Value Reference Range Interpretation Comments SARS-COV2/RT-PCR (test code = 00379-5) Negative Negative The SARS-CoV-2 target nucleic acids are not detected in this specimen. Negative results do not preclude SARS-CoV-2 infection and should not be used as the sole basis for patient management decisions. Negative results must be combined with clinical observations, patient history, and epidemiological information. A false negative result may occur if a specimen is improperly collected, transported or handled. This SARS CoV-2 test is a rapid, real-time RT-PCR test intended for the qualitative detection of nucleic acid from SARS-CoV-2 in a nasopharyngeal swab specimen collected from individuals suspected of COVID-19 by their healthcare provider. LAURIE (test code = LAURIE) This test has been authorized by [employer] under an EUA for use by authorized laboratories. This test is only authorized for the duration of the declaration that circumstances exist justifying the authorization of emergency use of in vitro diagnostic tests for detection and/or diagnosis of COVID-19 under Section 564(b)(1) of the Federal Food, Drug and Cosmetic Act, 21 U.S.C. § 360bbb-3(b)(1), unless the authorization is terminated or revoked sooner. Fact Sheet for Healthcare Providers: https://www.121nexus/Documents/Xp ert%20Xpress%20SAR S%20CoV-2/Fact%20S heets/302-3802%20S ARS-COV-2%20HEALTH CARE%20PROVIDERS%2 0FACT%20SHEET.pdf Fact Sheet for Healthcare Patients: https://www.121nexus/Documents/Xp ert%20Xpress%20SAR S%20CoV-2/Fact%20S heets/302-3801%20S ARS-COV-2%20PATIEN T%20FACT%20SHEET.p df Lab Interpretation (test code = 93566-8) [facility])2025-05-16 12:27:51 * Test Item Value Reference Range Interpretation Comme nts SARS-COV2/RT-PCR (test code = 3029330) Negative Negative The SARS-CoV-2 t arget nucleic acids are not detected in this specimen. Negative results do not preclude SARS-CoV-2 infection and should not be used as the sole basis for patient management decisions. Negative results must be combined with clinical observations, patient history, and epidemiological information. A false negative result may occur if a specimen is improperly collected, transported or handled. This SARS CoV-2 test is a rapid, real-time RT-PCR test intended for the qualitative detection of nucleic acid from SARS-CoV-2 in a nasopharyngeal swab specimen collected from individuals suspected of COVID-19 by their healthcare provider. This test has been authorized by FDA under an EUA for use by authorized laboratories. This test is only authorized for the duration of the declaration that circumstances exist justifying the authorization of emergency use of in vitro diagnostic tests for detection and/or diagnosis of COVID-19 underSection 564(b)(1) of the Federal Food, Drug and Cosmetic Act, 21 U.S.C. 360bbb-3(b)(1), unless the authorization is terminated or revoked sooner. Fact Sheet for Healthcare Providers: https://www.Youtuo/Documents/Xpert%20Xpress%20SARS%20CoV-2/Fact%20Sheets/3023802%20SARS-COV -2%20HEALTHCARE%20PROVIDERS%20FACT%20SHEET.pdf Fact Sheet for Healthcare Patients: https://www.motify/Documents/Xpe rt%20Xpress%20SARS%20CoV-2/Fact%20Sheets/3023801%84WGKY-CNR-7%20PATIENT%20FACT% 20SHEET.pdfPOCT-GLUCOSE [id number] 11:37:01* Test Item Value Reference Range Interpretation Comme nts POC-GLUCOSE METER (Nanovi) (test code = 1538) 112 mg/dL 70-110 H : Notified RN/MD : TESTED AT [address], [address]: Fundraising Coordinator/Manager Testing ID = [id number] for Jayshree Morales ECHO W CONTRAST & [id number] 11:21:31Transthoracic Echocardiography Report (TTE) Demographics Patient Name JONATAN GREGG Date of Study 05/16/2025 BIANKA Gender Male Visit Number [id number] Race Room Number 2214 Number Date of 1975 Referring Physician Hakeem Grant 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 The left ventricle chamber size (by vol index) is normal (male - LVED vol - 34-74ml/m2). Normal LV wall thickness. All of the LV segments contract normally . LVEF bySimpson's method of disk assessment is normal (65-70%) . Normal diastolic function. 2. The right ventricular chamber size and systolic function are normal. TAPSE 22 mm, RV S' 0.22 m/s. 3. Estimated peak systolic PA pressure is unable to be determined due to inadequate TR velocity signal . 4. IV saline contrast injection was negative for a PFO (patent foramen ovale) at rest and post Valsalva . 5. IV saline contrast with delayed imaging is negative for intra pulmonic shunting. 6. No significant valve disease. Signature Findings Rhythm/BP Regular sinus rhythm during the exam. Left Ventricle LV endocardium is adequately visualized with IV ultrasound enhancing agent. The left ventricle chamber size (by vol index) is normal (male - LVED vol - 34-74ml/m2). Normal LV wall thickness. All of the LV segments contract normally . LVEF by Greene's method of disk assessment is normal (65-70%) . Normal diastolic function. Left Atrium LA size is normal (16-34 ml/m2) . Right Ventricle The right ventricular chamber size and systolic function are normal. TAPSE 22 mm, RV S' 0.22 m/s. Right Atrium RA size is probably normal based on available views. Atrial Septum IV saline contrast injection was negative for a PFO (patent foramen ovale) at rest and post Valsalva . IV saline contrast with delayed imaging is negative for intra pulmonic shunting. Aortic Valve Normal tri-leaflet aortic valve. No evidence of aortic stenosis. No evidence of aortic regurgitation. Mitral Valve Normal MV structure. No evidence of mitral regurgitation. There is no evidence of mitral stenosis. Tricuspid Valve The tricuspid valve is not well visualized. Estimated peak systolic PA pressure is unable to be determined due to inadequate TR velocity signal . Pulmonic Valve PV is not well visualized; function appears normal by Doppler visualized. Aorta Aortic root size (Sinus of Valsalva diameter) is normal . Proximal ascending aorta size is normal . Pericardium An echo lucent space is noted consistent with prominent pericardial fat pad. IVC/SVC/PA/PV/Pleural The inferior vena cava is not well visualized.Chambers/Structures Left Atrium LA Volume: 73.59 ml LA Area: 24.37 cm^2 LA Vol. Index: 33 ml/m^2 Left Ventricle LVIDd: 4.84 cm LVEDV:109.48 ml LVIDs: 2.29 cm LVESV:11.97 ml LV Septum Diastolic: 0.86 cm LVEF 2D Cube: 89.4 % LV PW Diastolic: 0.97 cm LVEDV Greene's:122.35 ml LV FS: 52.7 % LVESV Greene's:38.21 ml LVEF Greene's: 68.8 % LVEDVI: 54 ml/m^2 LVESVI: 17 ml/m^2 LVOT Diameter:2.72 cm LVEF: 89.1 % Right Atrium RA Area: 15.91 cm^2 Right Ventricle RVOT VTI: 16.03 cmAorta Ascending Aorta: 3.59 cmDoppler/Quantitative Measurements Mitral Valve MV Peak E-Wave: 0.7 m/s MV Peak A-Wave: 0.46 m/s Peak Velocity: 0.74 m/s E/A Ratio: 1.52 Mean Velocity: 0.46 m/s Peak Gradient: 1.96 mmHg Mean Gradient: 0.97 mmHg Deceleration Time: 216.5 msec Area (continuity): 6.35 cm^2 MV VTI: 20.94 cm MV Abel. Peak: Aortic Valve Peak Velocity: 1.52 m/s Mean Velocity: 1.15 m/s Peak Gradient: 9.24mmHg Mean Gradient: 5.63 mmHg AV Area (continuity): 5 cm^2 AV VTI: 26.6 cm AV DVI: 0.86 LVOT Peak Velocity: 1.28 m/s Peak Gradient: 6.54 mmHg Mean Velocity: 0.96 m/s Mean Gradient: 4.02 mmHg LVOT Diameter: 2.72 cm LVOT VTI: 22.89 cm LVOT Area: 5.81 cm^2 LVOT SV:132.94 ml LVOT CO: 8.91 l/min LVOT CI: 3.94 l/min/m^2 Pulmonic Valve Peak Velocity: 1.06 m/s Peak Gradient: 4.53 mmHgCHI [facility] HospitalECHO W CONTRAST & DOPPLER 2025-05-16 11:21:31Transthoracic Echocardiography Report (TTE) Demographics Patient Name JONATAN GREGG Date of Study 05/16/2025 BIANKA Gender Male Visit Number [id number] Race Room Number 2214 Number Date of 1975 Referring Physician Hakeem Grant Age 49 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 The left ventricle chamber size (by vol index) is normal (male -LVED vol - 34-74ml/m2). Normal LV wall thickness. All of the LV segments contract normally . LVEF by Greene's method of disk assessment is normal (65-70%) . Normal diastolic function. 2. The right ventricular chamber size and systolic function are normal. TAPSE 22 mm, RV S' 0.22 m/s. 3. Estimated peak systolic PA pressure is unable to be determined due to inadequate TR velocity signal . 4. IV saline contrast injection was negative for a PFO (patent foramen ovale) at rest and post Valsalva . 5.IV saline contrast with delayed imaging is negative for intra pulmonic shunting. 6. No significant valve disease. Signature Findings Rhythm/BP Regular sinus rhythm during the exam. Left Ventricle LV endocardium is adequately visualized with IV ultrasound enhancing agent. The left ventricle chamber size (by vol index) is normal (male - LVED vol - 34-74ml/m2). Normal LV wall thickness. All of the LV segments contract normally . LVEF by Greene's method of disk assessment isnormal (65-70%) . Normal diastolic function. Left Atrium LA size is normal (16-34 ml/m2) . Right Ventricle The right ventricular chamber size and systolic function are normal. TAPSE 22 mm, RV S' 0.22m/s. Right Atrium RA size is probably normal based on available views. Atrial Septum IV saline contrast injection was negative for a PFO (patent foramen ovale) at rest and post Valsalva . IV saline contrast with delayed imaging is negative for intra pulmonic shunting. Aortic Valve Normal tri-leaflet aortic valve. No evidence of aortic stenosis. No evidence of aortic regurgitation. Mitral Valve Normal MV structure. No evidence of mitral regurgitation. There is no evidence of mitral stenosis. Tricuspid Valve The tricuspid valve is not well visualized. Estimated peak systolic PA pressure is unable to be determined due to inadequate TR velocity signal . Pulmonic Valve PV is not well visualized; function appears normal by Doppler visualized. Aorta Aortic root size (Sinus of Valsalva diameter) is normal . Proximal ascending aorta size is normal . Pericardium An echo lucent space is noted consistent with prominent pericardial fat pad. IVC/SVC/PA/PV/Pleural The inferior vena cava is not well visualized.Chambers/Structures Left Atrium LA Volume: 73.59 ml LA Area: 24.37 cm^2 LA Vol. Index:33 ml/m^2 Left Ventricle LVIDd: 4.84 cm LVEDV:109.48 ml LVIDs: 2.29 cm LVESV:11.97 ml LV Septum Diastolic: 0.86 cm LVEF 2D Cube: 89.4 % LV PW Diastolic: 0.97 cm LVEDV Greene's:122.35 ml LV FS: 52.7 % LVESV Greene's:38.21 ml LVEF Greene's: 68.8 % LVEDVI: 54 ml/m^2 LVESVI: 17 ml/m^2 LVOT Diameter:2.72 cm LVEF: 89.1 % Right Atrium RA Area: 15.91 cm^2 Right Ventricle RVOT VTI: 16.03 cmAorta Ascending Aorta: 3.59 cmDoppler/Quantitative Measurements Mitral Valve MV Peak E-Wave: 0.7 m/s MV Peak A-Wave: 0.46 m/s Peak Velocity: 0.74 m/s E/A Ratio: 1.52 Mean Velocity: 0.46 m/s Peak Gradient: 1.96 mmHg Mean Gradient: 0.97 mmHg Deceleration Time: 216.5 msec Area (continuity): 6.35 cm^2 MV VTI: 20.94 cm MV Abel. Peak: Aortic Valve Peak Velocity: 1.52 m/s Mean Velocity: 1.15 m/s Peak Gradient: 9.24 mmHg Mean Gradient: 5.63 mmHg AV Area (continuity): 5 cm^2 AV VTI: 26.6 cm AV DVI: 0.86 LVOT Peak Velocity: 1.28 m/s Peak Gradient: 6.54 mmHg Mean Velocity: 0.96 m/s Mean Gradient: 4.02 mmHg LVOT Diameter: 2.72 cm LVOT VTI: 22.89 cm LVOT Area: 5.81 cm^2 LVOT SV:132.94 ml LVOT CO: 8.91 l/min LVOT CI: 3.94 l/min/m^2 Pulmonic Valve Peak Velocity: 1.06 m/s Peak Gradient: 4.53 mmHgCHI Beverly HospitalANTITHROMBIN III 2025-05-16 11:02:52* Test Item Value Reference Range Interpretation Comme [facility] ANTITHROMBIN III ACTIVITY (Eda JO) (test code = 711) 97.0 % 83.0-128.0 Fundraising Coordinator ID -PROTEIN C [id number] 11:02:52* Test Item Value Reference Range Interpretation Comme [facility] PROTEIN C ACTIVITY (RYLIE) (test code = 582) 145.0 % 70.0-140.0 H Fundraising Coordinator ID -POCT-GLUCOSE [id number] 10:53:03* Test Item Value Reference Range Interpretation Comme [facility] POC-GLUCOSE METER (MARYAKER) (test code = 1538) 130 mg/dL 70-110 H : TESTED AT [facility] [address] [place] [address], [address]: Fundraising Coordinator/Manager Testing ID = [id number] for Lanton, Yadira CARDIOLIPIN ANTIBODIES, IGG AND [id number] 09:39:08* Test Item Value Reference Range Interpretation Comme [facility] ANTICARDIOLIPIN IGG ANTIBODY (RYLIE) (test code = 712) < GPL <20.0 ANTICARDIOLIPIN IGM ANTIBODY (RYLIE) (test code = 713) 1.6 MPL <20.0 Anticardiolipin IgG Result Interpretation: <20.0 GPL Normal>/= 20.0 GPL PositiveAnticardiolipin IgM Result Interpretation: <20.0 MPL Normal>/= 20.0 MPL [id number] 07:16:15* Test Item Value Reference Range Interpretation Comme [facility] RPR SCREEN (RYLIE) (test co de = 420) Nonreactive Nonreactive POCT-GLUCOSE [id number] 06:22:43* Test Item Value Reference Range Interpretation Comme nts POC-GLUCOSE METER (BEAKER) (test code = 1538) 119 mg/dL 70-110 H : TESTED AT [facility] [address] [facility], [address]: Fundraising Coordinator/Manager Testing ID = [id number] for Antwon Calles CBC W/PLT COUNT & AUTO [id number] 04:09:23* Test Item Value Reference Range Interpretation Comme [facility] WHITE BLOOD CELL COUNT (BEAK ER) (test code = 775) 11.4 K/ L 3.5-10.5 H RED BLOOD CELL COUNT (BEAKER ) (test code = 761) 4.99 M/ L 4.63-6.08 HEMOGLOBIN (BEAKER) (test co de = 410) 15.2 GM/DL 13.7-17.5 HEMATOCRIT (BEAKER) (test co de = 411) 45.5 % 40.1-51.0 MEAN CORPUSCULAR VOLUME (YULISSA KER) (test code = 753) 91 fL 79-92 MEAN CORPUSCULAR HEMOGLOBIN (BEAKER) (test code = 751) 30.5 pg 25.7-32.2 MEAN CORPUSCULAR HEMOGLOBIN CONC (BEAKER) (test code = 752) 33.4 GM/DL 32.3-36.5 RED CELL DISTRIBUTION WIDTH (BEAKER) (test code = 412) 13.3 % 11.6-14.4 PLATELET COUNT (BEAKER) (velma t code = 756) 268 K/CU MM 150-450 MEAN PLATELET VOLUME (BEAKER ) (test code = 754) 9.3 fL 9.4-12.4 L NUCLEATED RED BLOOD CELLS (BEAKER) (test code = 413) 0 /100 WBC 0-0 NEUTROPHILS RELATIVE PERCENT (BEAKER) (test code = 429) 66 % LYMPHOCYTES RELATIVE PERCENT (BEAKER) (test code = 430) 25 % MONOCYTES RELATIVE PERCENT (BEAKER) (test code = 431) 6 % EOSINOPHILS RELATIVE PERCENT (BEAKER) (test code = 432) 1 % BASOPHILS RELATIVE PERCENT (BEAKER) (test code = 437) 1 % NEUTROPHILS ABSOLUTE COUNT (BEAKER) (test code = 670) 7.46 K/ L 1.78-5.38 H LYMPHOCYTES ABSOLUTE COUNT (BEAKER) (test code = 414) 2.87 K/ L 1.32-3.57 MONOCYTES ABSOLUTE COUNT (BE DARIN) (test code = 415) 0.73 K/ L 0.30-0.82 EOSINOPHILS ABSOLUTE COUNT (BEAKER) (test code = 416) 0.15 K/ L 0.04-0.54 BASOPHILS ABSOLUTE COUNT (BE DARIN) (test code = 417) 0.10 K/ L 0.01-0.08 H IMMATURE GRANULOCYTES-RELATI VE PERCENT (BEAKER) (test code = 2801) 0.50 % 0.00-1.00 [id number] 03:54:59* Test Item Value Reference Range Interpretation Comme nts MAGNESIUM (BEAKER) (test code = 627) 2.0 mg/dL 1.6-2.6 Specimen sligh tly hemolyzed [id number] 03:54:59* Test Item Value Reference Range Interpretation Comme nts PHOSPHORUS (BEAKER) (test code = 604) 3.8 mg/dL 2.5-4.5 Specimen sligh tly hemolyzed BASIC METABOLIC [id number] 03:54:59* Test Item Value Reference Range Interpretation Comme nts SODIUM (BEAKER) (test code = 381) 140 meq/L 136-145 POTASSIUM (BEAKER) (test code = 379) 3.7 meq/L 3.5-5.1 Specimen slightl y hemolyzed CHLORIDE (BEAKER) (test code = 382) 104 meq/L 98-107 CO2 (BEAKER) (test code = 355) 27 meq/L 22-29 BLOOD UREA NITROGEN (BEAKER) (test code = 354) 14 mg/dL 9-21 CREATININE (BEAKER) (test code = 358) 0.67 mg/dL 0.60-1.30 Specimen slightl y hemolyzed GLUCOSE RANDOM (BEAKER) (test code = 652) 109 mg/dL 70-105 H CALCIUM (BEAKER) (test code = 697) 8.5 mg/dL 8.4-10.2 EGFR (BEAKER) (test code = 1092) 115 mL/min/1.73 sq m Interpretation of eG FR values Stage Description Result G1 Normal or high >=90 G2 Mildly decreased 60-89 G3a Mildly to moderately 45-59 G3b Moderately to severely 30-44 G4 Severly decreased 15-29 G5 Kidney failure <15Reported eGFR is based on the CKD-EPI 202 equation that does not use a race coefficientEstimated GFR is not as accurate as Creatinine Clearance in predicting glomerular filtration rate. Estimated GFR is not applicable for dialysis patients POCT-GLUCOSE [id number] 22:36:32* Test Item Value Reference Range Interpretation Comme nts POC-GLUCOSE METER (BEAKER) (test code = 1538) 104 mg/dL 70-110 : TESTED AT [facility] [address] [facility], [address]: Fundraising Coordinator/Manager Testing ID = [id number] for Antwon Calles POCT-GLUCOSE [id number] 17:31:21* Test Item Value Reference Range Interpretation Comme [facility] POC-GLUCOSE METER (RYLIE) (test code = 1538) 119 mg/dL 70-110 H : TESTED AT [facility] [address] [facility], [address]: Fundraising Coordinator/Manager Testing ID = [id number] for Yadira Meyer HEMOGLOBIN [id number] 11:10:53* Test Item Value Reference Range Interpretation Comme [facility] HEMOGLOBIN A1C ELECTROPHORESIS (RYLIE) (test code = 3811) 6.7 % See_Comment H [Automated me ssage] The system which generated this result transmitted reference range: <=5.6%. The reference range was not used to interpret this result as normal/abnormal. "The A1c is measured using a NGSP-certified method. HbA1c value equal to or greater than 6.5% as the diagnosis cutoff for diabetes. An HbA1c value of 5.7- 6.4% indicates increased risk for diabetes (prediabetes)."Fundraising Coordinator ID - ADMMR BRAIN WITHOUT IV [id number] 11:02:39 [facility] : 1975 Sex: MMR BRAIN WITHOUT IV CONTRASTINDICATION: Stroke, follow upTECHNIQUE: Multiplanar, multisequence MR imaging of the brain wasobtained.COMPARISON: NoneFINDINGS:Brain parenchyma is normal in morphology. Midline structures arenormally developed. No restricted diffusion to suggest recent ischemicinsult. No abnormal susceptibility.Scattered T2/FLAIR hyperintense foci within the periventricular andsubcortical white matter are nonspecific, however, statisticallyrepresent chronic microvascular ischemic changes.No hydrocephalus.Orbits are within normal limits.No obstructive paranasal sinusdisease.IMPRESSION:No acute intracranial findings.Electronically Signed By: Angela Gonzalez05/15/2025 11:04 CDTWorkstation Name: [id number] Brain Without IV [id number] 11:02:39MR BRAIN WITHOUT IV CONTRAST INDICATION: Stroke, follow up TECHNIQUE: Multiplanar, multisequence MRimaging of the brain wasobtained. COMPARISON: None FINDINGS:Brain parenchyma is normal in morphology. Midline structures arenormally developed. No restricted diffusion to suggest recent ischemicinsult. No abnormal susceptibility. Scattered T2/FLAIR hyperintense foci within the periventricular andsubcortical white matter are nonspecific, however, statisticallyrepresent chronic microvascular ischemic changes. No hydrocephalus. Orbits are within normal limits. No obstructive paranasal sinus disease.[facility] IV Contrast 2025-05-15 11:02:39MR BRAIN WITHOUT IV CONTRAST INDICATION: Stroke, follow up TECHNIQUE: Multiplanar, multisequence MRimaging of the brain wasobtained. COMPARISON: None FINDINGS:Brain parenchyma is normal in morphology. Midline structures arenormally developed. No restricted diffusion to suggest recent ischemicinsult. No abnormal susceptibility. Scattered T2/FLAIR hyperintense foci within the periventricular andsubcortical white matter are nonspecific, however, statisticallyrepresent chronic microvascular ischemic changes. No hydrocephalus. Orbits are within normal limits. No obstructive paranasal sinus disease.[facility] HospitalBASIC METABOLIC [id number] 03:59:20* Test Item Value Reference Range Interpretation Comme nts SODIUM (BEAKER) (test code = 381) 137 meq/L 136-145 POTASSIUM (BEAKER) (test code = 379) 3.7 meq/L 3.5-5.1 CHLORIDE (BEAKER) (test code = 382) 102 meq/L 98-107 CO2 (BEAKER) (test code = 355) 27 meq/L 22-29 BLOOD UREA NITROGEN (BEAKER) (test code = 354) 14 mg/dL 9-21 CREATININE (BEAKER) (test code = 358) 0.73 mg/dL 0.60-1.30 GLUCOSE RANDOM (BEAKER) (test code = 652) 157 mg/dL 70-105 H CALCIUM (BEAKER) (test code = 697) 9.1 mg/dL 8.4-10.2 EGFR (BEAKER) (test code = 1092) 113 mL/min/1.73 sq m Interpretation of eG FR values Stage Description Result G1 Normal or high >=90 G2 Mildly decreased 60-89 G3a Mildly to moderately 45-59 G3b Moderately to severely 30-44 G4 Severly decreased 15-29 G5 Kidney failure <15Reported eGFR is based on the CKD-EPI 2020 equation that does not use a race coefficientEstimated GFR is not as accurate as Creatinine Clearance in predicting glomerular filtration rate. Estimated GFR is not applicable for dialysis patients [id number] 03:59:20* Test Item Value Reference Range Interpretation Comme nts MAGNESIUM (BEAKER) (test cod e = 627) 2.0 mg/dL 1.6-2.6 [id number] 03:59:20* Test Item Value Reference Range Interpretation Comme nts PHOSPHORUS (BEAKER) (test co de = 604) 3.7 mg/dL 2.5-4.5 CBC W/PLT COUNT & AUTO [id number] 03:31:34* Test Item Value Reference Range Interpretation Comme nts WHITE BLOOD CELL COUNT (BEAK ER) (test code = 775) 16.2 K/ L 3.5-10.5 H RED BLOOD CELL COUNT (BEAKER ) (test code = 761) 4.89 M/ L 4.63-6.08 HEMOGLOBIN (BEAKER) (test co de = 410) 14.5 GM/DL 13.7-17.5 HEMATOCRIT (BEAKER) (test co de = 411) 44.1 % 40.1-51.0 MEAN CORPUSCULAR VOLUME (YULISSA KER) (test code = 753) 90 fL 79-92 MEAN CORPUSCULAR HEMOGLOBIN (BEAKER) (test code = 751) 29.7 pg 25.7-32.2 MEAN CORPUSCULAR HEMOGLOBIN CONC (BEAKER) (test code = 752) 32.9 GM/DL 32.3-36.5 RED CELL DISTRIBUTION WIDTH (BEAKER) (test code = 412) 13.2 % 11.6-14.4 PLATELET COUNT (BEAKER) (velma t code = 756) 293 K/CU MM 150-450 MEAN PLATELET VOLUME (BEAKER ) (test code = 754) 9.1 fL 9.4-12.4 L NUCLEATED RED BLOOD CELLS (BEAKER) (test code = 413) 0 /100 WBC 0-0 NEUTROPHILS RELATIVE PERCENT (BEAKER) (test code = 429) 73 % LYMPHOCYTES RELATIVE PERCENT (BEAKER) (test code = 430) 20 % MONOCYTES RELATIVE PERCENT (BEAKER) (test code = 431) 6 % EOSINOPHILS RELATIVE PERCENT (BEAKER) (test code = 432) 1 % BASOPHILS RELATIVE PERCENT (BEAKER) (test code = 437) 0 % NEUTROPHILS ABSOLUTE COUNT (BEAKER) (test code = 670) 11.72 K/ L 1.78-5.38 H LYMPHOCYTES ABSOLUTE COUNT (BEAKER) (test code = 414) 3.24 K/ L 1.32-3.57 MONOCYTES ABSOLUTE COUNT (BE DARIN) (test code = 415) 0.99 K/ L 0.30-0.82 H EOSINOPHILS ABSOLUTE COUNT (BEAKER) (test code = 416) 0.09 K/ L 0.04-0.54 BASOPHILS ABSOLUTE COUNT (BE DARIN) (test code = 417) 0.07 K/ L 0.01-0.08 IMMATURE GRANULOCYTES-RELATI VE PERCENT (BEAKER) (test code = 2801) 0.40 % 0.00-1.00 Urinalysis without [id number] 16:51:41* Test Item Value Reference Range Interpretation Comme nts Color, UA (test code = 5778-6) Light Yellow Clarity, UA (test code = 5767-9) Clear Specific [place], UA (test code = 5811-5) 1.027 1.001-1.035 pH, UA (test code = 5803-2) 6.0 5.0-8.0 Protein, UA (test code = 26596-9) 10 mg/dL Negative A Glucose, UA (test code = 365) 150 mg/dL Negative A Ketones, UA (test code = 2514-8) 10 mg/dL Negative A Bilirubin, UA (test code = 94506-8) Negative Negative Blood, UA (test code = 60928-9) Negative Negative Nitrite, UA (test code = 5802-4) Negative Negative Leukocytes, UA (test code = 5799-2) Negative Negative Urobilinogen, UA (test code = 60461-2) 0.2 0.2-1.0 Specimen Source (test code = 2795) LAURIE (test code = LAURIE) Fundraising Coordinator ID - [auto] Lab Interpretation (test code = 83793-1) [facility] [id number] 16:51:41* Test Item Value Reference Range Interpretation Comme nts Color, UA (test code = 5778-6) Light Yellow Clarity, UA (test code = 5767-9) Clear Specific [place], UA (test code = 5811-5) 1.027 1.001-1.035 pH, UA (test code = 5803-2) 6 5.0-8.0 Protein, UA (test code = 39659-0) 10 mg/dL Negative A Glucose, UA (test code = 365) 150 mg/dL Negative A Ketones, UA (test code = 2514-8) 10 mg/dL Negative A Bilirubin, UA (test code = 92316-8) Negative Negative Blood, UA (test code = 73088-9) Negative Negative Nitrite, UA (test code = 5802-4) Negative Negative Leukocytes, UA (test code = 5799-2) Negative Negative Urobilinogen, UA (test code = 29053-4) 0.2 0.2-1.0 Specimen Source (test code = 2795) LAURIE (test code = LAURIE) Fundraising Coordinator ID - [auto] Lab Interpretation (test code = 69170-4) [facility]normal [facility] [id number] 16:51:41* Test Item Value Reference Range Interpretation Comme nts COLOR (BEAKER) (test code = 470) Light Yellow CLARITY (BEAKER) (test code = 469) Clear SPECIFIC GRAVITY UA (BEAKER) (test code = 468) 1.027 1.001-1.035 PH UA (BEAKER) (test code = 467) 6.0 5.0-8.0 PROTEIN UA (BEAKER) (test co de = 464) 10 mg/dL Negative A GLUCOSE UA (BEAKER) (test co de = 365) 150 mg/dL Negative A KETONES UA (BEAKER) (test co de = 371) 10 mg/dL Negative A BILIRUBIN UA (BEAKER) (test code = 462) Negative Negative BLOOD UA (BEAKER) (test code = 461) Negative Negative NITRITE UA (BEAKER) (test co de = 465) Negative Negative LEUKOCYTE ESTERASE UA (BEAKE R) (test code = 466) Negative Negative UROBILINOGEN UA (BEAKER) (te st code = 463) 0.2 0.2-1.0 SOURCE(BEAKER) (test code = 2795) Fundraising Coordinator ID - [auto]T4, [id number] 10:54:30* Test Item Value Reference Range Interpretation Comme nts FREE T4 (BEAKER) (test code = 655) 0.74 ng/dL 0.70-1.48 TSH/FREE T4 IF [id number] 10:26:10* Test Item Value Reference Range Interpretation Comme nts THYROID STIMULATING HORMONE (BEAKER) (test code = 772) 8.277 uIU/mL 0.350-4.940 H HIV-1 ANTIGEN WITH HIV-1/2 [id number] 10:24:14* Test Item Value Reference Range Interpretation Comme nts HIV-1 ANTIGEN WITH HIV 1\\T\\2 ANTIBODY (2) (BEDARIN) (test code = 2586) Nonreactive Nonreactive VITAMIN [id number] 10:24:09* Test Item Value Reference Range Interpretation Comme nts VITAMIN B12 (BEAKER) (test c ode = 774) 569 pg/mL 213-816 [id number] 10:24:09* Test Item Value Reference Range Interpretation Comme nts HOMOCYSTEINE (BEAKER) (test code = 642) 4.4 umol/L 5.5-16.2 L HIGH SENSITIVITY TROPONIN [id number] 10:01:43* Test Item Value Reference Range Interpretation Comme nts HIGH SENSITIVITY TROPONIN I (test code = 2846035) 20 pg/ml <35 The [facility] High Sensitivity Troponin-I results should be used in conjunction with other diagnostic information such as ECG, clinical observations and information, and patient symptoms to aid in the diagnosis of [place].B-TYPE NATRIURETIC FACTOR (BNP)2025-05-14 09:51:41* Test Item Value Reference Range Interpretation Comme nts B-TYPE NATRIURETIC PEPTIDE ( BEAKER) (test code = 700) 16 pg/mL 0-100 Fundraising Coordinator ID - ADMINC-REACTIVE [id number] 09:51:25* Test Item Value Reference Range Interpretation Comme nts C-REACTIVE PROTEIN (BEAKER) (test code = 676) 0.10 mg/dL <=0.50 BASIC METABOLIC [id number] 09:51:24* Test Item Value Reference Range Interpretation Comme nts SODIUM (BEAKER) (test code = 381) 137 meq/L 136-145 POTASSIUM (BEAKER) (test code = 379) 4.1 meq/L 3.5-5.1 CHLORIDE (BEAKER) (test code = 382) 104 meq/L 98-107 CO2 (BEAKER) (test code = 355) 22 meq/L 22-29 BLOOD UREA NITROGEN (BEAKER) (test code = 354) 10 mg/dL 9-21 CREATININE (BEAKER) (test code = 358) 0.67 mg/dL 0.60-1.30 GLUCOSE RANDOM (BEAKER) (test code = 652) 176 mg/dL 70-105 H CALCIUM (BEAKER) (test code = 697) 9.2 mg/dL 8.4-10.2 EGFR (BEAKER) (test code = 1092) 115 mL/min/1.73 sq m Interpretation of eG FR values Stage Description Result G1 Normal or high >=90 G2 Mildly decreased 60-89 G3a Mildly to moderately 45-59 G3b Moderately to severely 30-44 G4 Severly decreased 15-29 G5 Kidney failure <15Reported eGFR is based on the CKD-EPI 2020 equation that does not use a race coefficientEstimated GFR is not as accurate as Creatinine Clearance in predicting glomerular filtration rate. Estimated GFR is not applicable for dialysis patients [id number] 09:51:24* Test Item Value Reference Range Interpretation Comme nts MAGNESIUM (BEAKER) (test cod e = 627) 2.0 mg/dL 1.6-2.6 [id number] 09:51:24* Test Item Value Reference Range Interpretation Comme nts PHOSPHORUS (BEAKER) (test co de = 604) 2.3 mg/dL 2.5-4.5 L LIPID [id number] 09:51:24* Test Item Value Reference Range Interpretation Comme nts TRIGLYCERIDES (BEAKER) (test code = 540) 69 mg/dL CHOLESTEROL (BEAKER) (test c ode = 631) 157 mg/dL HDL CHOLESTEROL (BEAKER) (te st code = 976) 40 mg/dL LDL CHOLESTEROL CALCULATED ( AKER) (test code = 633) 103 mg/dL Triglyceride Reference Range: Low Risk <150 Borderline 150-199 High Risk 200-499 Very High Risk >=500Cholesterol Reference Range: Low Risk <200 Borderline 200-239 High Risk >240HDL Cholesterol Reference Range: Low Risk >=60 High Risk <40LDL Cholesterol Reference Range: Optimal <100 Near Optimal 100-129 Borderline 130-159 High 160-189 Very High >=190ECG 12 [id number] 09:26:17Ventricular Rate 75 BPMAtrial Rate 75 BPMP-R Interval 120 msQRS Duration 90 msQ-T Interval 382 msQTC Calculation(Bazett) 426 msP [place] 17 degreesR [place] 39 degreesT [place] 49 degrees Normal sinus rhythmNonspecific T wave abnormality in aVLBorderline ECGNo previous ECGs availableConfirmed by MD VALIENTE YOCHAI ([id number]) on 05/14/2025 9:26:15 [facility] [id number] 09:26:17Ventricular Rate 75 BPMAtrial Rate 75 BPMP-R Interval 120 msQRS Duration 90 msQ-T Interval 382 msQTC Calculation(Bazett) 426 msP [place] 17 degreesR [place] 39 degreesT [place] 49 degrees Normal sinus rhythmNonspecific T wave abnormality in aVLBorderline ECGNo previous ECGs availableConfirmed by MD ROCCO, NAVA ([id number]) on 05/14/2025 9:26:15 [facility] CenterFIBRINOGEN2025-07-26 09:14:37* Test Item Value Reference Range Interpretation Comme nts FIBRINOGEN LEVEL ([facility]) (t est code = 658) 327 mg/dl 155-431 Fundraising Coordinator ID -[id number] 09:14:37* Test Item Value Reference Range Interpretation Comme nts PARTIAL THROMBOPLASTIN TIME (DARIN) (test code = 760) 31.8 seconds 26.8-37.1 Fundraising Coordinator ID -PROTHROMBIN TIME/AFU1466-54-85 09:13:35* Test Item Value Reference Range Interpretation Comme nts PROTIME ([facility]) (test code = 759) 11.4 seconds 9.9-12.7 INR (BEAKER) (test code = 370) 1.01 See Comment RECOMMENDED COUMADIN/WARFARIN INR THERAPY RANGESSTANDARD DOSE: 2.0 - 3.0 Includes: PROPHYLAXIS for venous thrombosis, systemic embolization; TREATMENT for venous thrombosis and/or pulmonary embolus.HIGH RISK: Target INR is 2.5-3.5 for patients with mechanical heart valves.Fundraising Coordinator ID -CBC W/PLT COUNT & AUTO [id number] 08:58:39* Test Item Value Reference Range Interpretation Comme nts WHITE BLOOD CELL COUNT (BEAK ER) (test code = 775) 8.5 K/ L 3.5-10.5 RED BLOOD CELL COUNT (BEAKER ) (test code = 761) 5.17 M/ L 4.63-6.08 HEMOGLOBIN (BEAKER) (test co de = 410) 15.6 GM/DL 13.7-17.5 HEMATOCRIT (BEAKER) (test co de = 411) 47.1 % 40.1-51.0 MEAN CORPUSCULAR VOLUME (YULISSA KER) (test code = 753) 91 fL 79-92 MEAN CORPUSCULAR HEMOGLOBIN (BEAKER) (test code = 751) 30.2 pg 25.7-32.2 MEAN CORPUSCULAR HEMOGLOBIN CONC (BEAKER) (test code = 752) 33.1 GM/DL 32.3-36.5 RED CELL DISTRIBUTION WIDTH (BEAKER) (test code = 412) 13.1 % 11.6-14.4 PLATELET COUNT (BEAKER) (velma t code = 756) 294 K/CU MM 150-450 MEAN PLATELET VOLUME (BEAKER ) (test code = 754) 9.3 fL 9.4-12.4 L NUCLEATED RED BLOOD CELLS (BEAKER) (test code = 413) 0 /100 WBC 0-0 NEUTROPHILS RELATIVE PERCENT (BEAKER) (test code = 429) 87 % LYMPHOCYTES RELATIVE PERCENT (BEAKER) (test code = 430) 11 % MONOCYTES RELATIVE PERCENT (BEAKER) (test code = 431) 1 % EOSINOPHILS RELATIVE PERCENT (BEAKER) (test code = 432) 0 % BASOPHILS RELATIVE PERCENT (BEAKER) (test code = 437) 0 % NEUTROPHILS ABSOLUTE COUNT (BEAKER) (test code = 670) 7.40 K/ L 1.78-5.38 H LYMPHOCYTES ABSOLUTE COUNT (BEAKER) (test code = 414) 0.97 K/ L 1.32-3.57 L MONOCYTES ABSOLUTE COUNT (BE DARIN) (test code = 415) 0.05 K/ L 0.30-0.82 L EOSINOPHILS ABSOLUTE COUNT (BEAKER) (test code = 416) 0.00 K/ L 0.04-0.54 L BASOPHILS ABSOLUTE COUNT (BE DARIN) (test code = 417) 0.03 K/ L 0.01-0.08 IMMATURE GRANULOCYTES-RELATI VE PERCENT (BEAKER) (test code = 2801) 0.50 % 0.00-1.00 [id number]-[id number] 00:00:00Ordered by an unspecified provider.[facility]EKG-[id number] 00:00:00Ordered by an unspecified provider. [facility] GLUCOSE (AUTOMATED)2025-03-30 21:58:32* Test Item Value Reference Range Interpretation Comme [facility] POCT GLU (test code = 7252455414) 169 mg/dL 70-110 H Lab Interpretation (test cod e = 07719-5) [facility]25-[facility]-30 21:58:32* Test Item Value Reference Range Interpretation Comme [facility] POCT GLU (test code = 9958885460) 169 mg/dL 70-110 H Lab Interpretation (test cod e = 41065-4) [facility]normal [facility] Zzuussjpjvxgxvz0915-97-57 19:04:10[facility] Heart Cath/Coronary Angiography Marysol Cheung Date of Service: 03/30/2025 ?1:53 PM Attending Physician: Carisa Franks: Dr. Levine Physician: No ref. provider found Procedures Performed:LHCCoronary angiogram Indication/Diagnosis: stable angina Consent: Risks, benefits, alternatives and complications of the procedure discussed with the patient, who understood and agreed to proceed. Aseptic technique: Chlorprep Local Anesthesia: 1% lidocaine without epinephrine Sedation: Moderate Access site: Right radial artery Closure Method: TR band Sterile dressing: yes Complications: none Procedures: After patient identification/verification, the patient was thereafter transferred to the dye lab technician table. ?The access site was prepped and draped in usual sterile fashion. After administering sedation, time out was done. Under ultrasound guidance, using Seldinger technique, the Right radial artery was accessed and a 6 Fr Slender sheath was introduced into the artery. A5 Fr JL 3.5 catheter was used to cannulate the LM. Selective coronary angiography was done using several views. A 5 Fr JR 4.0 was used to cross the AV with the J wire and the catheter was advanced into the LVwhere selective LVEDP was measured. The catheter was then used to cannulate the RCA and selective co ronary angiography was done using multiple views. The attending physician was present throughout the procedure and provided the highest level of supervision. Findings: Coronary dominance: right Left main: Mild 20-30% distal disease LAD: Patent proximal to mid stent. Mid mild LI. Distal diffuse severe 60-70% disease then severe 70-80% focal apical lesion. D1: Large with severe ostial disease (likely jailed by LAD stent) then severe proximal to mid disease. Distal mild LI LCX: Ostial 40-50% disease then patent proximal stent into OM2. Mid segment has severe 70-80% disease jailed by OM2 stent. Distal diffuse disease OM1: Medium size with severe proximal 70% disease then diffuse mild LI mid to distal OM2: Patent stent with mild ISR RCA: Large and dominant. Proximal mild 20-30% disease. Mid stent patent with mild ISR. Distal mild LI PDA: Patent with diffuse moderate disease PLB: Patent with diffuse moderate disease LVEDP: 13 mmHg Post- Procedure Sedation AddendumImmediately prior to start of sedation, the patient was evaluated and there was no change from the pre-procedure evaluation. I was present and directed medical care.The patient underwent moderate sedation ?for the procedure. Themedications administered were recorded in the MAR; oxygenation, ventilation and circulation were monitored continuously and were recorded in the EMR. I evaluated the patient after the procedure.The patient was evaluated immediately as recovering from sedation. Complications: None Impression:Patent LAD, LCX and RCA stentsSevere diffuse distal disease in LAD, diag and LCX (recommend medical management)Normal LVEDP Plan:Recommend aggressive medical management and risk factors modifications. Stentsin major coronary arteries are patent. There is diffuse distal disease in LAD and diag which will be better management with medical therapyFindings discussed with the patient and Carisa Velazquez MD 03/30/2025 1:53 PMUnB[facility] (SCANNED DOCUMENTS)2025-03-30 18:07:26Ordered by an unspecified provider.[facility] GLUCOSE (AUTOMATED) 2025-03-30 14:07:30* Test Item Value Reference Range Interpretation Comme nts POCT GLU (test code = 5333009829) 111 mg/dL 70-110 H Lab Interpretation (test cod e = 64998-4) Abnormal [facility] GLUCOSE (AUTOMATED)2025-03-30 14:07:30* Test Item Value Reference Range Interpretation Comme nts POCT GLU (test code = 6396538842) 111 mg/dL 70-110 H Lab Interpretation (test cod e = 79118-6) Abnormal [facility] GLUCOSE (AUTOMATED)2025-03-30 01:55:03* Test Item Value Reference Range Interpretation Comme nts POCT GLU (test code = 4475307974) 123 mg/dL 70-110 H Lab Interpretation (test cod e = 13153-9) Abnormal [facility] GLUCOSE (AUTOMATED)2025-03-30 01:55:03* Test Item Value Reference Range Interpretation Comme nts POCT GLU (test code = 6990890466) 123 mg/dL 70-110 H Lab Interpretation (test cod e = 45371-4) Abnormal [facility] GLUCOSE (AUTOMATED)2025-03-29 21:57:33* Test Item Value Reference Range Interpretation Comme nts POCT GLU (test code = 2588954381) 138 mg/dL 70-110 H Lab Interpretation (test cod e = 25441-6) Abnormal [facility] GLUCOSE (AUTOMATED)2025-03-29 21:57:33* Test Item Value Reference Range Interpretation Comme nts POCT GLU (test code = 9166558479) 138 mg/dL 70-110 H Lab Interpretation (test cod e = 66965-5) Abnormal [facility] GLUCOSE (AUTOMATED)2025-03-29 16:39:04* Test Item Value Reference Range Interpretation Comme nts POCT GLU (test code = 2886576988) 87 mg/dL 70-110 Lab Interpretation (test cod e = 07456-7) Normal [facility] GLUCOSE (AUTOMATED)2025-03-29 16:39:04* Test Item Value Reference Range Interpretation Comme nts POCT GLU (test code = 0482941499) 87 mg/dL 70-110 Lab Interpretation (test cod e = 69965-2) Normal [facility] GLUCOSE (AUTOMATED)2025-03-29 12:34:00* Test Item Value Reference Range Interpretation Comme nts POCT GLU (test code = 2460643188) 117 mg/dL 70-110 H Lab Interpretation (test cod e = 59451-8) Abnormal [facility] GLUCOSE (AUTOMATED)2025-03-29 12:34:00* Test Item Value Reference Range Interpretation Comme nts POCT GLU (test code = 3192739507) 117 mg/dL 70-110 H Lab Interpretation (test cod e = 20801-5) Abnormal [facility] GLUCOSE (AUTOMATED)2025-03-29 01:25:00* Test Item Value Reference Range Interpretation Comme nts POCT GLU (test code = 4437105676) 111 mg/dL 70-110 H Lab Interpretation (test cod e = 94305-7) Abnormal [facility] GLUCOSE (AUTOMATED)2025-03-29 01:25:00* Test Item Value Reference Range Interpretation Comme nts POCT GLU (test code = 5201890907) 111 mg/dL 70-110 H Lab Interpretation (test cod e = 49747-8) Abnormal [facility] ([facility]E)2025-03-29 01:24:03* Test Item Value Reference Range Interpretation Comme nts Height (test code = 8087778460) 68 in Weight (test code = 8082464233) 240 lbs Systolic BP (test code = 5599950137) 134 mmHg Diastolic BP (test code = 3129486203) 100 mmHg Heart Rate (test code = 8771753547) 83 bpm LV GLS Endo Peak A2C () (test code = 9951760606) -24.3 % LV GLS Endo Peak A3C () (test code = 5552147593) -24.8 % LV GLS Endo Peak A4C () (test code = 6234328519) -23.6 % LV GLS Endo Peak Avg () (test code = 2634937832) -24.3 % BSA (test code = 6932968481) 2.21 m2 LVOT diameter (test code = 9980546070) 2.02 cm LVOT area (test code = 0457239600) 3.2 cm2 Ao root diam (test code = 7567957468) 3.6 cm Aortic root (test code = 9007304654) 3.6 cm Ao root annulus (test code = 0042685695) 3.6 cm LA size (test code = 7683250800) 3.8 cm LVIDD (test code = 1991937624) 4 cm Left Ventricular End Diastolic Volume by Teichholz Method (test code = 0780439) 69 mL IVS (test code = 2431731667) 1.49 cm Interventricular Septum Diastolic Thickness by 2D (test code = 0955028) 1.49 cm LVPWD (test code = 4273484239) 1.5 cm LV RWT (test code = 4640563587) 0.75 LV mass (test code = 2432033343) 231.51 g LV Mass Index (test code = 1064787847) 104.8 g/m2 PW (test code = 2224706141) 1.5 cm 0.6-1.1 EF(Teich) (test code = 8016954180) 53 % LVIDS (test code = 0395592553) 2.9 cm Left Ventricular End Systolic Volume by Teichholz Method (test code = 8851122) 32.4 mL FS (test code = 5811384188) 27 % EF - 2D (test code = 36501832) 53 % Pulmonic Regurgitant End Max Velocity (test code = 2282955049) 75.4 cm/s LAV(MOD-sp4) (test code = 3893800858) 30.2 mL MV Peak E Abel (test code = 4766842959) 78.6 cm/s MV stenosis pressure 1/2 time (test code = 9857897909) 75.8 ms MV Peak A Abel (test code = 9239785045) 70.2 cm/s E/A ratio (test code = 5559412184) 1.12 ratio E wave decelartion time (test code = 2037561690) 0.26 s MV Prop V (test code = 0911999586) 31.4 cm/s MV E/e' septal (test code = 2382842382) 9.4 cm/s Tapse (test code = 4062343887) 2.38 cm LVOT stroke volume (test code = 0265129832) 74.2 cm3 LVOT peak abel (test code = 6304359598) 122.1 cm/s LVOT mn grad (test code = 2790400676) 3.1 mmHg AV LVOT peak gradient (test code = 8401383813) 6 mmHg LVOT peak VTI (test code = 2812415542) 23.1 cm LV V1 mean (test code = 3041884521) 84.1 cm/s Aortic valve mean velocity (test code = 6705979160) 102.1 cm/s Ao peak abel (test code = 7659235145) 142.8 cm/s Ao VTI (test code = 6503106358) 23.4 cm AV area by cont VTI (test code = 9612419823) 3.2 cm2 AV area peak aebl (test code = 4053186375) 2.7 cm2 Ao max PG (test code = 6491556892) 8.2 mm[Hg] AV peak gradient (test code = 8093654269) 8.2 mmHg AV valve area (test code = 0674299851) 3.2 cm2 AV mean gradient (test code = 7360525335) 4.5 mmHg GLS (test code = 3619507994) -24 % Radiology Study observation (narrative) (test code = 95545-1) LAURIE (test code = LAURIE) ?Right?Ventricle: Right ventricle size is normal. Normal systolic function. ?Tricuspid?Valve: Trace transvalvular regurgitation. Insufficient tricuspid regurgitation jet to estimate RVSP . ?RA pressure is 0-5 mmHg. ?Left?Ventricle: Left ventricle size is normal. Normal wall thickness. There is concentric remodeling. Normal wall motion. Normal systolic function with a visually estimated EF of 55 - 60%. Global longitudinal strain is normal with a value of -24%. Normal diastolic function. ?Aorta: Mildly enlarged aortic root. Left VentricleLeft ventricle size is normal. Normal wall thickness. There is concentric remodeling. Normal wall motion. Normal systolic function with a visually estimated EF of 55 - 60%. Global longitudinal strain is normal with a value of -24%. Normal diastolic function.Right VentricleRight ventricle size is normal. Normal systolic function.Left AtriumLeft atrium size is normal.Right AtriumRight atrium size is normal.Mitral ValveMitral valve structure is grossly normal. Trace transvalvular regurgitation.Tricusp id ValveTricuspid valve structure is grossly normal. Trace transvalvular regurgitation. Insufficient tricuspid regurgitation jet to estimate RVSP . RA pressure is 0-5 mmHg.Aortic ValveAortic valve opens well.Pulmonic ValveNot well visualized.Ascending AortaMildly enlarged aortic root.PericardiumNo pericardial effusion.Study DetailsStudy quality experienced technical difficulty. A complete echocardiogram was performed using 2D, color flow Doppler, spectral Doppler and strain. [facility] ([facility]2025-[facility]-29 01:24:03* Test Item Value Reference Range Interpretation Comme nts Height (test code = 3554841143) 68 in Weight (test code = 0280397961) 240 lbs Systolic BP (test code = 0848121233) 134 mmHg Diastolic BP (test code = 0567526008) 100 mmHg Heart Rate (test code = 1252534956) 83 bpm LV GLS Endo Peak A2C () (test code = 5178535348) -24.3 % LV GLS Endo Peak A3C () (test code = 9940756314) -24.8 % LV GLS Endo Peak A4C () (test code = 4118059441) -23.6 % LV GLS Endo Peak Avg () (test code = 7706600594) -24.3 % BSA (test code = 6156972678) 2.21 m2 LVOT diameter (test code = 5531336732) 2.02 cm LVOT area (test code = 8949474216) 3.2 cm2 Ao root diam (test code = 1543637089) 3.6 cm Aortic root (test code = 9569467399) 3.6 cm Ao root annulus (test code = 8634254130) 3.6 cm LA size (test code = 8119888137) 3.8 cm LVIDD (test code = 5457755581) 4 cm Left Ventricular End Diastolic Volume by Teichholz Method (test code = 6989936) 69 mL IVS (test code = 6415111955) 1.49 cm Interventricular Septum Diastolic Thickness by 2D (test code = 1729466) 1.49 cm LVPWD (test code = 0936566659) 1.5 cm LV RWT (test code = 9194268103) 0.75 LV mass (test code = 7651954937) 231.51 g LV Mass Index (test code = 3969049824) 104.8 g/m2 PW (test code = 8028284979) 1.5 cm 0.6-1.1 EF(Teich) (test code = 5967817620) 53 % LVIDS (test code = 6655120395) 2.9 cm Left Ventricular End Systolic Volume by Teichholz Method (test code = 8853368) 32.4 mL FS (test code = 6271213128) 27 % EF - 2D (test code = 54246851) 53 % Pulmonic Regurgitant End Max Velocity (test code = 3522606012) 75.4 cm/s LAV(MOD-sp4) (test code = 2867433203) 30.2 mL MV Peak E Abel (test code = 0961851792) 78.6 cm/s MV stenosis pressure 1/2 time (test code = 4856182377) 75.8 ms MV Peak A Abel (test code = 2435862802) 70.2 cm/s E/A ratio (test code = 5627275428) 1.12 ratio E wave decelartion time (test code = 9362573925) 0.26 s MV Prop V (test code = 9830646459) 31.4 cm/s MV E/e' septal (test code = 5740083875) 9.4 cm/s Tapse (test code = 9915494584) 2.38 cm LVOT stroke volume (test code = 3363674573) 74.2 cm3 LVOT peak abel (test code = 8704859238) 122.1 cm/s LVOT mn grad (test code = 3458975240) 3.1 mmHg AV LVOT peak gradient (test code = 5329937217) 6 mmHg LVOT peak VTI (test code = 1023254913) 23.1 cm LV V1 mean (test code = 5505166491) 84.1 cm/s Aortic valve mean velocity (test code = 0058482443) 102.1 cm/s Ao peak abel (test code = 3500610376) 142.8 cm/s Ao VTI (test code = 0879402174) 23.4 cm AV area by cont VTI (test code = 6690515736) 3.2 cm2 AV area peak abel (test code = 5209804942) 2.7 cm2 Ao max PG (test code = 1338009210) 8.2 mm[Hg] AV peak gradient (test code = 8895435418) 8.2 mmHg AV valve area (test code = 7329317699) 3.2 cm2 AV mean gradient (test code = 4917772685) 4.5 mmHg GLS (test code = 4710468913) -24 % Radiology Study observation (narrative) (test code = 78654-3) LAURIE (test code = LAURIE) ?Right?Ventricle: Right ventricle size is normal. Normal systolic function. ?Tricuspid?Valve: Trace transvalvular regurgitation. Insufficient tricuspid regurgitation jet to estimate RVSP . ?RA pressure is 0-5 mmHg. ?Left?Ventricle: Left ventricle size is normal. Normal wall thickness. There is concentric remodeling. Normal wall motion. Normal systolic function with a visually estimated EF of 55 - 60%. Global longitudinal strain is normal with a value of -24%. Normal diastolic function. ?Aorta: Mildly enlarged aortic root. Left VentricleLeft ventricle size is normal. Normal wall thickness. There is concentric remodeling. Normal wall motion. Normal systolic function with a visually estimated EF of 55 - 60%. Global longitudinal strain is normal with a value of -24%. Normal diastolic function.Right VentricleRight ventricle size is normal. Normal systolic function.Left AtriumLeft atrium size is normal.Right AtriumRight atrium size is normal.Mitral ValveMitral valve structure is grossly normal. Trace transvalvular regurgitation.Tricusp id ValveTricuspid valve structure is grossly normal. Trace transvalvular regurgitation. Insufficient tricuspid regurgitation jet to estimate RVSP . RA pressure is 0-5 mmHg.Aortic ValveAortic valve opens well.Pulmonic ValveNot well visualized.Ascending AortaMildly enlarged aortic root.PericardiumNo pericardial effusion.Study DetailsStudy quality experienced technical difficulty. A complete echocardiogram was performed using 2D, color flow Doppler, spectral Doppler and strain. [facility] 21:43:30* Test Item Value Reference Range Interpretation Comme nts POCT GLU (test code = 4244200117) 88 mg/dL 70-110 Lab Interpretation (test cod e = 48901-3) Normal [facility] GLUCOSE (AUTOMATED)2025-03-28 21:43:30* Test Item Value Reference Range Interpretation Comme nts POCT GLU (test code = 1250270248) 88 mg/dL 70-110 Lab Interpretation (test cod e = 05644-0) Normal [facility] GLUCOSE (AUTOMATED)2025-03-28 16:51:55* Test Item Value Reference Range Interpretation Comme nts POCT GLU (test code = 5672231619) 101 mg/dL 70-110 Lab Interpretation (test cod e = 95462-2) Normal [facility] GLUCOSE (AUTOMATED)2025-03-28 16:51:55* Test Item Value Reference Range Interpretation Comme nts POCT GLU (test code = 5981181698) 101 mg/dL 70-110 Lab Interpretation (test cod e = 50443-8) Normal [facility] HospitalGlycosylated Hemoglobin (A1C)2025-03-28 15:44:55* Test Item Value Reference Range Interpretation Comme nts HGB A1C (test code = 4548-4) 5.8 % 4.0-5.7 H LAURIE (test code = LAURIE) Reference RangesNormal: <5.7%Prediabetes: 5.7 - 6.4%Diabetes: > 6.5% Lab Interpretation (test code = 34201-1) Abnormal [facility] HospitalGlycosylated Hemoglobin (A1C)2025-03-28 15:44:55* Test Item Value Reference Range Interpretation Comme nts HGB A1C (test code = 4548-4) 5.8 % 4.0-5.7 H LAURIE (test code = LAURIE) Reference RangesNormal: <5.7%Prediabetes: 5.7 - 6.4%Diabetes: > 6.5% Lab Interpretation (test code = 99959-3) Abnormal [facility] HospitalTroponin [id number] 13:29:52* Test Item Value Reference Range Interpretation Comme nts TROPONIN I (test code = 9212698175) 0.003 ng/mL <=0.034 LAURIE (test code = [...] of biotin. Lab Interpretation (test code = 85337-4) Normal [facility] HospitalTroponin [id number] 13:29:52* Test Item Value Reference Range Interpretation Comme nts TROPONIN I (test code = 0013787249) 0.003 ng/mL <=0.034 LAURIE (test code = [...] of biotin. Lab Interpretation (test code = 86832-7) Normal [facility]Lipase2025-06-09 13:17:50* Test Item Value Reference Range Interpretation Comme nts LIPASE (test code = 7017656392) 56 U/L 0-220 Lab Interpretation (test cod e = 31447-8) Normal [facility] Met[facility] Panel (80818)2025-03-28 13:17:50* Test Item Value Reference Range Interpretation Comme nts NA (test code = 3243136580) 135 mmol/L 135-145 K (test code = 4204454632) 4 mmol/L 3.5-5.0 CL (test code = 0983831709) 103 mmol/L 98-108 CO2 TOTAL (test code = 9208743534) 20 mmol/L 23-31 L AGAP (test code = 1384448775) 12 2-16 BUN (test code = 9883403928) 14 mg/dL 7-23 GLUCOSE (test code = 6687951124) 218 mg/dL 70-110 H CREATININE (test code = 2160-0) 0.54 mg/dL 0.60-1.25 L TOTAL BILI (test code = 4744283667) 0.4 mg/dL 0.1-1.1 CALCIUM (test code = 5215241080) 8.6 mg/dL 8.6-10.6 T PROTEIN (test code = 6451486441) 7.9 g/dL 6.3-8.2 ALBUMIN (test code = 7071994353) 4.5 g/dL 3.5-5.0 ALK PHOS (test code = 3592661406) 87 U/L 34-122 ALTv (test code = 1742-6) 21 U/L 5-50 AST(SGOT) (test code = 7155021066) 32 U/L 13-40 eGFR (test code = 96458-8) 123.7 mL/min/1.73m2 CKD-EPI eGFR (2020). Assuming creatinine has been stable day-to-day for at least three months, the eGFR indicates Category G1 (>= 90 mL/min/1.73 m2) Lab Interpretation (test code = 04656-8) Abnormal [facility] HospitalLipase2025-06-09 13:17:50* Test Item Value Reference Range Interpretation Comme nts LIPASE (test code = 7493903016) 56 U/L 0-220 Lab Interpretation (test cod e = 79775-5) Normal [facility] Met[facility] Panel (00800)2025-03-28 13:17:50* Test Item Value Reference Range Interpretation Comme nts NA (test code = 5560182841) 135 mmol/L 135-145 K (test code = 5313821150) 4 mmol/L 3.5-5.0 CL (test code = 8725580316) 103 mmol/L 98-108 CO2 TOTAL (test code = 1370215863) 20 mmol/L 23-31 L AGAP (test code = 7066755829) 12 2-16 BUN (test code = 0093988626) 14 mg/dL 7-23 GLUCOSE (test code = 2792591423) 218 mg/dL 70-110 H CREATININE (test code = 2160-0) 0.54 mg/dL 0.60-1.25 L TOTAL BILI (test code = 9541930139) 0.4 mg/dL 0.1-1.1 CALCIUM (test code = 7541315801) 8.6 mg/dL 8.6-10.6 T PROTEIN (test code = 6435597526) 7.9 g/dL 6.3-8.2 ALBUMIN (test code = 8038130371) 4.5 g/dL 3.5-5.0 ALK PHOS (test code = 8737963708) 87 U/L 34-122 ALTv (test code = 1742-6) 21 U/L 5-50 AST(SGOT) (test code = 7599647057) 32 U/L 13-40 eGFR (test code = 37886-7) 123.7 mL/min/1.73m2 CKD-EPI eGFR (2020). Assuming creatinine has been stable day-to-day for at least three months, the eGFR indicates Category G1 (>= 90 mL/min/1.73 m2) Lab Interpretation (test code = 95242-6) Abnormal [facility] 1 [id number] 13:08:20EXAM: XR CHEST 1 VW COMPARISON: Chest CT 08/24/2023; chest x-ray on 423 HISTORY: chest pain FINDINGS: Lungs: No focal consolidation, pleural effusion, or pneumothorax.Cephalization and diffuse prominent interstitial markings. Heart/Mediastinum: The cardiac silhouette appears normal accounting fortech nique. Bones and soft tissues: No acute findings are detected.[facility]XR [facility] 1 [id number] 13:08:20EXAM: XR CHEST 1 VW COMPARISON: Chest CT 08/24/2023; chest x-ray on 423 HISTORY: chest pain FINDINGS: Lungs: No focal consolidation, pleural effusion, or pneumothorax.Cephalization and diffuse prominent interstitial markings. Heart/Mediastinum: The cardiac silhouette appears normal accounting fortechnique. Bones and soft tissues: No acute findings are detected.[facility] HospitalCbc with Diff 2025-03-28 13:04:10* Test Item Value Reference Range Interpretation Comme nts WBC (test code = 6690-2) 8.51 4.20-10.70 RBC (test code = 789-8) 4.83 4.26-5.52 HGB (test code = 718-7) 15.2 g/dL 12.2-16.4 HCT (test code = 4544-3) 45.7 % 38.4-49.3 MCV (test code = 787-2) 94.6 fL 81.7-95.6 MCH (test code = 785-6) 31.5 pg 26.1-32.7 MCHC (test code = 786-4) 33.3 g/dL 31.2-35.0 RDW-SD (test code = 63261-9) 46 fL 38.5-51.6 RDW-CV (test code = 788-0) 13.1 % 12.1-15.4 PLT (test code = 777-3) 259 150-328 MPV (test code = 58101-0) 10 fL 9.8-13.0 NRBC/100 WBC (test code = 5335595211) 0 0.0-10.0 NRBC x10^3 (test code = 4273291897) See_Comment [Automated me ssage] The system which generated this result transmitted reference range: 10*3/?L. The reference range was not used to interpret this result as normal/abnormal. GRAN MAT (NEUT) % (test code = 770-8) 68.3 % IMM GRAN % (test code = 2833395372) 0.6 % LYMPH % (test code = 736-9) 22.3 % MONO % (test code = 5905-5) 6 % EOS % (test code = 713-8) 1.9 % BASO % (test code = 706-2) 0.9 % GRAN MAT x10^3(ANC) (test code = 2373039996) 5.81 10*3/uL 1.99-6.95 IMM GRAN x10^3 (test code = 8878643220) 0.05 10*3/uL 0.00-0.06 LYMPH x10^3 (test code = 731-0) 1.9 10*3/uL 1.09-3.23 MONO x10^3 (test code = 742-7) 0.51 10*3/uL 0.36-1.02 EOS x10^3 (test code = 711-2) 0.16 10*3/uL 0.06-0.53 BASO x10^3 (test code = 704-7) 0.08 10*3/uL 0.01-0.09 [facility] with [id number] 13:04:10* Test Item Value Reference Range Interpretation Comme nts WBC (test code = 6690-2) 8.51 4.20-10.70 RBC (test code = 789-8) 4.83 4.26-5.52 HGB (test code = 718-7) 15.2 g/dL 12.2-16.4 HCT (test code = 4544-3) 45.7 % 38.4-49.3 MCV (test code = 787-2) 94.6 fL 81.7-95.6 MCH (test code = 785-6) 31.5 pg 26.1-32.7 MCHC (test code = 786-4) 33.3 g/dL 31.2-35.0 RDW-SD (test code = 85528-9) 46 fL 38.5-51.6 RDW-CV (test code = 788-0) 13.1 % 12.1-15.4 PLT (test code = 777-3) 259 150-328 MPV (test code = 66602-6) 10 fL 9.8-13.0 NRBC/100 WBC (test code = 1058537755) 0 0.0-10.0 NRBC x10^3 (test code = 4537134987) See_Comment [Automated me ssage] The system which generated this result transmitted reference range: 10*3/?L. The reference range was not used to interpret this result as normal/abnormal. GRAN MAT (NEUT) % (test code = 770-8) 68.3 % IMM GRAN % (test code = 5201220683) 0.6 % LYMPH % (test code = 736-9) 22.3 % MONO % (test code = 5905-5) 6 % EOS % (test code = 713-8) 1.9 % BASO % (test code = 706-2) 0.9 % GRAN MAT x10^3(ANC) (test code = 6158770807) 5.81 10*3/uL 1.99-6.95 IMM GRAN x10^3 (test code = 9442637699) 0.05 10*3/uL 0.00-0.06 LYMPH x10^3 (test code = 731-0) 1.9 10*3/uL 1.09-3.23 MONO x10^3 (test code = 742-7) 0.51 10*3/uL 0.36-1.02 EOS x10^3 (test code = 711-2) 0.16 10*3/uL 0.06-0.53 BASO x10^3 (test code = 704-7) 0.08 10*3/uL 0.01-0.09 [facility] [id number] 17:26:18CT Abdomen and Pelvis with intravenous contrast. CLINICAL [...] lower abdominal aorta and rightcommon iliac artery. Re troperitoneum: No abnormal fluid or lymphadenopathy. Bowel: ?No [...] suspicion of mild diffuse hepatic steatosis.4. Slightly thickenedurinary bladder pike could be due to incompleteluminal distention. Please correlate clinically forany signs and symptomsof cystitis.[facility] with Azgjdoppclag8125-78-53 17:03:16* Test Item Value Reference Range Interpretation Comme nts WBC (test code = 6690-2) 8.73 4.20-10.70 RBC (test code = 789-8) 5.45 4.26-5.52 HGB (test code = 718-7) 17.4 g/dL 12.2-16.4 H HCT (test code = 4544-3) 50.5 % 38.4-49.3 H MCV (test code = 787-2) 92.7 fL 81.7-95.6 MCH (test code = 785-6) 31.9 pg 26.1-32.7 MCHC (test code = 786-4) 34.5 g/dL 31.2-35.0 RDW-SD (test code = 30188-5) 46.0 fL 38.5-51.6 RDW-CV (test code = 788-0) 13.6 % 12.1-15.4 PLT (test code = 777-3) 301 150-328 MPV (test code = 42755-7) 10.1 fL 9.8-13.0 NRBC/100 WBC (test code = 1401365102) 0.0 0.0-10.0 NRBC x10^3 (test code = 3506323671) See_Comment [Automated [employer]] The system which generated this result transmitted reference range: 10*3/?L. The reference range was not used to interpret this result as normal/abnormal. GRAN MAT (NEUT) % (test code = 770-8) 64.7 % IMM GRAN % (test code = 3938156463) 0.30 % LYMPH % (test code = 736-9) 26.1 % MONO % (test code = 5905-5) 7.0 % EOS % (test code = 713-8) 0.9 % BASO % (test code = 706-2) 1.0 % GRAN MAT x10^3(ANC) (test code = 7770657158) 5.64 10*3/uL 1.99-6.95 IMM GRAN x10^3 (test code = 6287931332) 0.03 10*3/uL 0.00-0.06 LYMPH x10^3 (test code = 731-0) 2.28 10*3/uL 1.09-3.23 MONO x10^3 (test code = 742-7) 0.61 10*3/uL 0.36-1.02 EOS x10^3 (test code = 711-2) 0.08 10*3/uL 0.06-0.53 BASO x10^3 (test code = 704-7) 0.09 10*3/uL 0.01-0.09 Lab Interpretation (test code = 45715-0) Abnormal [facility] Ctjid2690-59-24 17:02:35* Test Item Value Reference Range Interpretation Comme nts NA (test code = 7834190546) 139 mmol/L 135-145 K (test code = 7889707598) 4.4 mmol/L 3.5-5.0 CL (test code = 7848360408) 101 mmol/L 98-108 CO2 TOTAL (test code = 8257365561) 31 mmol/L 23-31 AGAP (test code = 2891605593) 7 2-16 BUN (test code = 4649774369) 12 mg/dL 7-23 GLUCOSE (test code = 3649261936) 100 mg/dL 70-110 CREATININE (test code = 2160-0) 0.61 mg/dL 0.60-1.25 TOTAL BILI (test code = 5902279583) 0.5 mg/dL 0.1-1.1 CALCIUM (test code = 3090838778) 9.8 mg/dL 8.6-10.6 T PROTEIN (test code = 2621516902) 8.4 g/dL 6.3-8.2 H ALBUMIN (test code = 4479674762) 4.7 g/dL 3.5-5.0 ALK PHOS (test code = 1105656987) 84 U/L 34-122 ALTv (test code = 1742-6) 23 U/L 5-50 AST(SGOT) (test code = 0945312557) 25 U/L 13-40 eGFR (test code = 80035-2) 120.0 mL/min/1.73m2 CKD-EPI eGFR (2020). Assuming creatinine has been stable day-to-day for at least three months, the eGFR indicates Category G1 (>= 90 mL/min/1.73 m2) Lab Interpretation (test code = 08616-7) Abnormal [facility] HospitalLipase, Zvkvx6474-48-76 17:01:54* Test Item Value Reference Range Interpretation Comme nts LIPASE (test code = 2955405566) 42 U/L 0-220 Lab Interpretation (test cod e = 60839-1) Normal [facility] HospitalMagnesium2024-01-18 07:16:16* Test Item Value Reference Range Interpretation Comme nts MAGNESIUM (test code = 1812550074) 2.2 mg/dL 1.7-2.4 Lab Interpretation (test cod e = 02822-9) Normal [facility] HospitalComp. Metabolic Panel (66129)2023-11-06 07:16:15* Test Item Value Reference Range Interpretation Comme nts NA (test code = 7224942356) 138 mmol/L 135-145 K (test code = 0658631102) 3.5 mmol/L 3.5-5.0 CL (test code = 9653836806) 106 mmol/L 98-108 CO2 TOTAL (test code = 7290194721) 23 mmol/L 23-31 AGAP (test code = 4739409764) 9 2-16 BUN (test code = 6808187315) 18 mg/dL 7-23 GLUCOSE (test code = 9998186249) 110 mg/dL 70-110 CREATININE (test code = 6099005358) 0.73 mg/dL 0.60-1.25 TOTAL BILI (test code = 9163723800) 0.4 mg/dL 0.1-1.1 CALCIUM (test code = 5288876133) 9.4 mg/dL 8.6-10.6 T PROTEIN (test code = 5002632186) 8.5 g/dL 6.3-8.2 H ALBUMIN (test code = 7731102473) 4.8 g/dL 3.5-5.0 ALK PHOS (test code = 4938819817) 78 U/L 34-122 ALTv (test code = 1742-6) 42 U/L 5-50 AST(SGOT) (test code = 2753365844) 43 U/L 13-40 H eGFR (test code = 72060-5) 113.6 mL/min/1.73m2 CKD-EPI eGFR (2020). Assuming creatinine has been stable day-to-day for at least three months, the eGFR indicates Category G1 (>= 90 mL/min/1.73 m2) Lab Interpretation (test code = 79199-4) Abnormal [facility] HospitalLipase2024-01-18 07:16:15* Test Item Value Reference Range Interpretation Comme nts LIPASE (test code = 8069312432) 118 U/L 0-220 Lab Interpretation (test cod e = 21185-8) Normal [facility] with Iumi1559-14-10 06:49:12* Test Item Value Reference Range Interpretation [...] 33.5 g/dL 31.2-35.0 RDW-SD (test code = 63508-2) 46.4 fL 38.5-51.6 RDW-CV (test code = 788-0) 13.7 % 12.1-15.4 PLT (test code = 777-3) 323 See_Comment [Automated [employer]] The system which generated this result transmitted reference range: 150 - 328 10*3/?L. The reference range was not used to interpret this result as normal/abnormal. MPV (test code = 68902-2) 9.8 fL 9.8-13.0 NRBC/100 WBC (test code = 8284750182) 0.0 See_Comment [Automated Circalit ssage] The system which generated this result transmitted reference range: 0.0 - 10.0 /100 WBCs. The reference range was not used to interpret this result as normal/abnormal. NRBC x10^3 (test code = 9519307969) See_Comment [Automated [employer]] The system which generated this result transmitted reference range: 10*3/?L. The reference range was not used to interpret this result as normal/abnormal. GRAN MAT (NEUT) % (test code = 770-8) 56.1 % IMM GRAN % (test code = 7613957235) 0.50 % LYMPH % (test code = 736-9) 34.8 % MONO % (test code = 5905-5) 6.3 % EOS % (test code = 713-8) 1.4 % BASO % (test code = 706-2) 0.9 % GRAN MAT x10^3(ANC) (test code = 0609801708) 6.38 10*3/uL 1.99-6.95 IMM GRAN x10^3 (test code = 8790612176) 0.06 10*3/uL 0.00-0.06 LYMPH x10^3 (test code = 731-0) 3.95 10*3/uL 1.09-3.23 H MONO x10^3 (test code = 742-7) 0.71 10*3/uL 0.36-1.02 EOS x10^3 (test code = 711-2) 0.16 10*3/uL 0.06-0.53 BASO x10^3 (test code = 704-7) 0.10 10*3/uL 0.01-0.09 H Lab Interpretation (test code = 12668-3) Abnormal [facility] W DIEHYGQV0671-05-80 09:00:37Ordering physician: JOSE FRANCISCO WALTERS Indication: Acute [...] demonstrate no osseous destructive lesion. [facility]Complete Metabolic Riict9995-85-55 06:29:13* Test Item Value Reference Range Interpretation Comme nts NA (test code = 7199054109) 138 mmol/L 135-145 K (test code = 9029806582) 3.8 mmol/L 3.5-5.0 CL (test code = 2136640183) 106 mmol/L 98-108 CO2 TOTAL (test code = 9616833522) 21 mmol/L 23-31 L AGAP (test code = 4919357446) 11 2-16 BUN (test code = 6651312022) 13 mg/dL 7-23 GLUCOSE (test code = 6759506438) 113 mg/dL 70-110 H CREATININE (test code = 3496702740) 0.63 mg/dL 0.60-1.25 TOTAL BILI (test code = 0433394612) 0.7 mg/dL 0.1-1.1 CALCIUM (test code = 5095697510) 9.6 mg/dL 8.6-10.6 T PROTEIN (test code = 6784550304) 9.0 g/dL 6.3-8.2 H ALBUMIN (test code = 6753618198) 5.0 g/dL 3.5-5.0 ALK PHOS (test code = 8482331449) 73 U/L 34-122 ALTv (test code = 1742-6) 33 U/L 5-50 AST(SGOT) (test code = 2789996245) 33 U/L 13-40 eGFR (test code = 81310-6) 118.8 mL/min/1.73m2 CKD-EPI eGFR (2020). Assuming creatinine has been stable day-to-day for at least three months, the eGFR indicates Category G1 (>= 90 mL/min/1.73 m2) Lab Interpretation (test code = 32789-1) Abnormal [facility] HospitalLip[facility], Lqkwk1695-33-13 06:29:13* Test Item Value Reference Range Interpretation Comme nts LIPASE (test code = 8385148556) 89 U/L 0-220 Lab Interpretation (test cod e = 22441-5) Normal [facility] HospitalCB with Xryofcbgsdsh9452-68-97 06:17:56* Test Item Value Reference Range Interpretation Comme nts WBC (test code = 6690-2) 11.54 See_Comment H [Automated [employer]oving [employer]] The system which generated this result transmitted reference range: 4.20 - 10.70 10*3/?L. The reference range was not used to interpret this result as normal/abnormal. RBC (test code = 789-8) 5.24 See_Comment [Automated [employer]] The system which generated this result transmitted [...] 33.9 g/dL 31.2-35.0 RDW-SD (test code = 75205-6) 46.6 fL 38.5-51.6 RDW-CV (test code = 788-0) 14.0 % 12.1-15.4 PLT (test code = 777-3) 312 See_Comment [Automated messa ge] The system which generated this result transmitted reference range: 150 - 328 10*3/?L. The reference range was not used to interpret this result as normal/abnormal. MPV (test code = 90826-7) 9.7 fL 9.8-13.0 L NRBC/100 WBC (test code = 1120260998) 0.0 See_Comment [Automated Circalit ssage] The system which generated this result transmitted reference range: 0.0 - 10.0 /100 WBCs. The reference range was not used to interpret this result as normal/abnormal. NRBC x10^3 (test code = 3214146924) See_Comment [Automated messa ge] The system which generated this result transmitted reference range: 10*3/?L. The reference range was not used to interpret this result as normal/abnormal. GRAN MAT (NEUT) % (test code = 770-8) 54.9 % IMM GRAN % (test code = 5549104843) 0.30 % LYMPH % (test code = 736-9) 36.0 % MONO % (test code = 5905-5) 6.3 % EOS % (test code = 713-8) 1.6 % BASO % (test code = 706-2) 0.9 % GRAN MAT x10^3(ANC) (test code = 7194182556) 6.35 10*3/uL 1.99-6.95 IMM GRAN x10^3 (test code = 9161926535) 0.03 10*3/uL 0.00-0.06 LYMPH x10^3 (test code = 731-0) 4.15 10*3/uL 1.09-3.23 H MONO x10^3 (test code = 742-7) 0.73 10*3/uL 0.36-1.02 EOS x10^3 (test code = 711-2) 0.18 10*3/uL 0.06-0.53 BASO x10^3 (test code = 704-7) 0.10 10*3/uL 0.01-0.09 H Lab Interpretation (test code = 95667-8) Abnormal [facility] ([facility])2023-11-01 05:42:28* Test Item Value Reference Range Interpretation Comme [facility] POCT GLU (test code = 4524621323) 110 mg/dL 70-110 Lab Interpretation (test cod e = 78217-3) Normal [facility] ABDOMEN PELVIS W SSGIARBW2649-33-83 07:44:05Ordering physician: CHAPITO CONTRERAS Indication: Acute right [...] pars defects at L5-S1.[facility] acute hospital with Espsqupvztpg0279-25-64 06:48:02* Test Item Value Reference Range Interpretation Comme [facility] WBC (test code = 6690-2) 11.85 See_Comment [...] 33.9 g/dL 31.2-35.0 RDW-SD (test code = 09648-3) 45.0 fL 38.5-51.6 RDW-CV (test code = 788-0) 13.6 % 12.1-15.4 PLT (test code = 777-3) 307 See_Comment [Automated [employer]] The system which generated this result transmitted reference range: 150 - 328 10*3/?L. The reference range was not used to interpret this result as normal/abnormal. MPV (test code = 57766-4) 9.3 fL 9.8-13.0 L NRBC/100 WBC (test code = 2559033711) 0.0 See_Comment [Automated Circalit ssage] The system which generated this result transmitted reference range: 0.0 - 10.0 /100 WBCs. The reference range was not used to interpret this result as normal/abnormal. NRBC x10^3 (test code = 8498003189) See_Comment [Automated [employer]] The system which generated this result transmitted reference range: 10*3/?L. The reference range was not used to interpret this result as normal/abnormal. SEG % (test code = 64434-2) 49 % 33-76 LYMPH % (test code = 46984-6) 40 % 14-54 MONO % (test code = 73555-4) 4 % 0-4 EOS % (test code = 57230-3) 7 % 0-3 H ANC (test code = 753-4) 5.81 10*3/uL 1.99-6.95 Lab Interpretation (test code = 46784-5) Abnormal [facility] Uzinh0917-86-14 06:32:13* Test Item Value Reference Range Interpretation Comme nts NA (test code = 5185211134) 140 mmol/L 135-145 K (test code = 0113405261) 3.7 mmol/L 3.5-5.0 CL (test code = 0387496936) 105 mmol/L 98-108 CO2 TOTAL (test code = 7680679125) 23 mmol/L 23-31 AGAP (test code = 6555155605) 12 2-16 BUN (test code = 6296569244) 15 mg/dL 7-23 GLUCOSE (test code = 4049675645) 126 mg/dL 70-110 H CREATININE (test code = 9321547177) 0.89 mg/dL 0.60-1.25 TOTAL BILI (test code = 1457894459) 0.6 mg/dL 0.1-1.1 CALCIUM (test code = 4268984788) 9.5 mg/dL 8.6-10.6 T PROTEIN (test code = 0197394192) 8.6 g/dL 6.3-8.2 H ALBUMIN (test code = 9013599357) 4.7 g/dL 3.5-5.0 ALK PHOS (test code = 2597554894) 84 U/L 34-122 ALTv (test code = 1742-6) 38 U/L 5-50 AST(SGOT) (test code = 0263555405) 33 U/L 13-40 eGFR (test code = 93777-4) 107.0 mL/min/1.73m2 CKD-EPI eGFR (2020). Assuming creatinine has been stable day-to-day for at least three months, the eGFR indicates Category G1 (>= 90 mL/min/1.73 m2) Lab Interpretation (test code = 65890-4) [facility]normal [facility]Lip[facility], [id number] 06:31:52* Test Item Value Reference Range Interpretation Comme nts LIPASE (test code = 2708819793) 80 U/L 0-220 Lab Interpretation (test cod e = 75449-3) Normal [facility] (NA, K, CL, CO2, GLUCOSE, BUN, CREATININE, CA)2023-09-26 06:00:26* Test Item Value Reference Range Interpretation Comme nts NA (test code = 9085776244) 139 mmol/L 135-145 K (test code = 8278733419) 3.9 mmol/L 3.5-5.0 CL (test code = 0496529133) 104 mmol/L 98-108 CO2 TOTAL (test code = 6803814125) 25 mmol/L 23-31 AGAP (test code = 5508261574) 10 2-16 BUN (test code = 2851113649) 14 mg/dL 7-23 GLUCOSE (test code = 1248821669) 109 mg/dL 70-110 CREATININE (test code = 4925271056) 0.77 mg/dL 0.60-1.25 CALCIUM (test code = 3533097642) 10.4 mg/dL 8.6-10.6 eGFR (test code = 63094-7) 112.5 mL/min/1.73m2 CKD-EPI eGFR (20 21). Assuming creatinine has been stable day-to-day for at least three months, the eGFR indicates Category G1 (>= 90 mL/min/1.73 m2) [facility]HEPAT[facility] PAN[facility] (13911) (ALB,T.PRO,BILI T,BU/BC,ALT,AST,ALK PHOS)2023-09-26 06:00:26* Test Item Value Reference Range Interpretation Comme nts TOTAL BILI (test code = 4764301447) 0.6 mg/dL 0.1-1.1 BILI UNCON (test code = 9082536934) 0.4 mg/dL 0.1-1.1 BILI CONJ (test code = 8404876222) 0.0 mg/dL 0.0-0.3 T PROTEIN (test code = 7852319385) 8.6 g/dL 6.3-8.2 H ALBUMIN (test code = 8853714089) 4.7 g/dL 3.5-5.0 ALK PHOS (test code = 6701081363) 91 U/L 34-122 ALTv (test code = 1742-6) 40 U/L 5-50 AST(SGOT) (test code = 2381206047) 27 U/L 13-40 Lab Interpretation (test cod e = 14949-0) [facility] Test Item Value Reference Range Interpretation Comme nts LIPASE (test code = 4103835496) 73 U/L 0-220 Lab Interpretation (test cod e = 73767-6) Normal [facility] acute hospital WITH [id number] 05:50:26* Test Item Value Reference Range Interpretation [...] 33.8 g/dL 31.2-35.0 RDW-SD (test code = 45408-8) 44.0 fL 38.5-51.6 RDW-CV (test code = 788-0) 13.1 % 12.1-15.4 PLT (test code = 777-3) 317 See_Comment [Automated messa ge] The system which generated this result transmitted reference range: 150 - 328 10*3/?L. The reference range was not used to interpret this result as normal/abnormal. MPV (test code = 11599-9) 9.6 fL 9.8-13.0 L NRBC/100 WBC (test code = 8351276695) 0.0 See_Comment [Automated Circalit ssage] The system which generated this result transmitted reference range: 0.0 - 10.0 /100 WBCs. The reference range was not used to interpret this result as normal/abnormal. NRBC x10^3 (test code = 7552428576) See_Comment [Automated messa ge] The system which generated this result transmitted reference range: 10*3/?L. The reference range was not used to interpret this result as normal/abnormal. GRAN MAT (NEUT) % (test code = 770-8) 50.9 % IMM GRAN % (test code = 2074372374) 0.30 % LYMPH % (test code = 736-9) 38.3 % MONO % (test code = 5905-5) 7.5 % EOS % (test code = 713-8) 2.2 % BASO % (test code = 706-2) 0.8 % GRAN MAT x10^3(ANC) (test code = 6229701751) 5.13 10*3/uL 1.99-6.95 IMM GRAN x10^3 (test code = 0059771199) 0.03 10*3/uL 0.00-0.06 LYMPH x10^3 (test code = 731-0) 3.86 10*3/uL 1.09-3.23 H MONO x10^3 (test code = 742-7) 0.76 10*3/uL 0.36-1.02 EOS x10^3 (test code = 711-2) 0.22 10*3/uL 0.06-0.53 BASO x10^3 (test code = 704-7) 0.08 10*3/uL 0.01-0.09 Lab Interpretation (test code = 08667-8) [facility] [id number] 05:30:49* Test Item Value Reference Range Interpretation Comme nts TROPONIN I (test code = 4278464703) 0.001 ng/mL <=0.034 LAURIE (test code = [...] of biotin. Lab Interpretation (test code = 91299-5) Normal [facility]. METABOLIC PANEL (14417)2023-08-24 05:19:05* Test Item Value Reference Range Interpretation Comme nts NA (test code = 9236463056) 138 mmol/L 135-145 K (test code = 0593049194) 4.3 mmol/L 3.5-5.0 CL (test code = 7171818458) 100 mmol/L 98-108 CO2 TOTAL (test code = 4387088450) 25 mmol/L 23-31 AGAP (test code = 5488040944) 13 2-16 BUN (test code = 6718745360) 15 mg/dL 7-23 GLUCOSE (test code = 7350709836) 198 mg/dL 70-110 H CREATININE (test code = 1692563684) 0.86 mg/dL 0.60-1.25 TOTAL BILI (test code = 8300035854) 0.3 mg/dL 0.1-1.1 CALCIUM (test code = 9252254116) 10.3 mg/dL 8.6-10.6 T PROTEIN (test code = 8419055280) 8.6 g/dL 6.3-8.2 H ALBUMIN (test code = 8480224097) 4.5 g/dL 3.5-5.0 ALK PHOS (test code = 8425601026) 94 U/L 34-122 ALTv (test code = 1742-6) 44 U/L 5-50 AST(SGOT) (test code = 6749813909) 28 U/L 13-40 eGFR (test code = 71784-4) 108.8 mL/min/1.73m2 CKD-EPI eGFR (2020). Assuming creatinine has been stable day-to-day for at least three months, the eGFR indicates Category G1 (>= 90 mL/min/1.73 m2) Lab Interpretation (test code = 84503-2) Abnormal [facility] acute hospital WITH [id number] 05:01:26* Test Item Value Reference Range Interpretation Comme nts WBC (test code = 6690-2) 10.38 See_Comment [Automated [employer]oving Plan[employer] ge] The system which generated this result [...] 33.5 g/dL 31.2-35.0 RDW-SD (test code = 83626-1) 43.8 fL 38.5-51.6 RDW-CV (test code = 788-0) 13.0 % 12.1-15.4 PLT (test code = 777-3) 298 See_Comment [Automated messa ge] The system which generated this result transmitted reference range: 150 - 328 10*3/?L. The reference range was not used to interpret this result as normal/abnormal. MPV (test code = 54960-5) 10.0 fL 9.8-13.0 NRBC/100 WBC (test code = 7543608793) 0.0 See_Comment [Automated [employer]calit ssage] The system which generated this result transmitted reference range: 0.0 - 10.0 /100 WBCs. The reference range was not used to interpret this result as normal/abnormal. NRBC x10^3 (test code = 2361212244) See_Comment [Automated messa ge] The system which generated this result transmitted reference range: 10*3/?L. The reference range was not used to interpret this result as normal/abnormal. GRAN MAT (NEUT) % (test code = 770-8) 52.4 % IMM GRAN % (test code = 1239685206) 0.30 % LYMPH % (test code = 736-9) 36.6 % MONO % (test code = 5905-5) 7.2 % EOS % (test code = 713-8) 2.6 % BASO % (test code = 706-2) 0.9 % GRAN MAT x10^3(ANC) (test code = 8130074325) 5.44 10*3/uL 1.99-6.95 IMM GRAN x10^3 (test code = 2761395189) 0.03 10*3/uL 0.00-0.06 LYMPH x10^3 (test code = 731-0) 3.80 10*3/uL 1.09-3.23 H MONO x10^3 (test code = 742-7) 0.75 10*3/uL 0.36-1.02 EOS x10^3 (test code = 711-2) 0.27 10*3/uL 0.06-0.53 BASO x10^3 (test code = 704-7) 0.09 10*3/uL 0.01-0.09 Lab Interpretation (test code = 96576-3) Abnormal [facility] GLUCOSE (AUTOMATED)2023-05-26 02:18:34* Test Item Value Reference Range Interpretation Comme nts POCT GLU (test code = 0903999930) 173 mg/dL 70-110 H Lab Interpretation (test cod e = 48129-5) Abnormal [facility] GLUCOSE(AGE >30DAYS)2023-05-26 02:17:00* Test Item Value Reference Range Interpretation Comme nts POCT Glu (age>30days) (test code = 3342) 173 mg/dL 70-110 A Lab Interpretation (test cod e = 58370-2) [facility] [id number] 01:41:57* Test Item Value Reference Range Interpretation Comme nts TROPONIN I (test code = 8480243800) 0.008 ng/mL <=0.034 LAURIE (test code = [...] of biotin. Lab Interpretation (test code = 04920-5) [facility]2023-05-26 01:23:43* Test Item Value Reference Range Interpretation Comme nts POCT GLU (test code = 0532703403) 185 mg/dL 70-110 H Lab Interpretation (test cod e = 23240-1) [facility] [id number] 00:40:36* Test Item Value Reference Range Interpretation Comme nts NT-proBNP (test code = 16769-2) <=125 Lab Interpretation (test cod e = 72164-0) Normal [facility] [id number] 00:06:55* Test Item Value Reference Range Interpretation Comme nts TROPONIN I (test code = 0927902573) 0.003 ng/mL <=0.034 LAURIE (test code = [...] of biotin. Lab Interpretation (test code = 15672-7) [facility] 23:56:12* Test Item Value Reference Range Interpretation Comme nts MAGNESIUM (test code = 8092970521) 2.0 mg/dL 1.7-2.4 Lab Interpretation (test cod e = 71573-7) [facility] METABOLIC PANEL (86879)2023-05-25 23:55:52* Test Item Value Reference Range Interpretation Comme nts NA (test code = 8049407891) 138 mmol/L 135-145 K (test code = 1862030745) 4.3 mmol/L 3.5-5.0 CL (test code = 8760535691) 103 mmol/L 98-108 CO2 TOTAL (test code = 0581422193) 22 mmol/L 23-31 L AGAP (test code = 4634893168) 13 2-16 BUN (test code = 9919877175) 22 mg/dL 7-23 GLUCOSE (test code = 6895965653) 274 mg/dL 70-110 H CREATININE (test code = 2825640605) 0.79 mg/dL 0.60-1.25 TOTAL BILI (test code = 4035504352) 0.6 mg/dL 0.1-1.1 CALCIUM (test code = 8247509028) 9.2 mg/dL 8.6-10.6 T PROTEIN (test code = 4383509210) 8.4 g/dL 6.3-8.2 H ALBUMIN (test code = 3791489651) 4.5 g/dL 3.5-5.0 ALK PHOS (test code = 6050815392) 88 U/L 34-122 ALTv (test code = 1742-6) 48 U/L 5-50 AST(SGOT) (test code = 1509192014) 37 U/L 13-40 eGFR (test code = 0997305470) 106.1 mL/min/1.73m2 LAURIE (test code = LAURIE) [...] imaging tests). Lab Interpretation (test code = 70025-1) [facility] 23:55:32* Test Item Value Reference Range Interpretation Comme nts LIPASE (test code = 6314986120) 154 U/L 0-220 Lab Interpretation (test cod e = 99910-3) [facility] WITH [id number] 23:33:34* Test Item Value Reference Range Interpretation Comme nts WBC (test code = 6690-2) 9.32 See_Comment [Automated [employer]oving [employer]] The system which generated this result transmitted reference range: 4.20 - 10.70 10*3/?L. The reference range was not used to interpret this result as normal/abnormal. RBC (test code = 789-8) 4.89 See_Comment [Automated [employer]] The system which generated this result transmitted [...] 33.7 g/dL 31.2-35.0 RDW-SD (test code = 05982-0) 45.4 fL 38.5-51.6 RDW-CV (test code = 788-0) 13.4 % 12.1-15.4 PLT (test code = 777-3) 286 See_Comment [Automated messa ge] The system which generated this result transmitted reference range: 150 - 328 10*3/?L. The reference range was not used to interpret this result as normal/abnormal. MPV (test code = 59141-9) 10.2 fL 9.8-13.0 NRBC/100 WBC (test code = 8904422347) 0.0 See_Comment [Automated me ssage] The system which generated this result transmitted reference range: 0.0 - 10.0 /100 WBCs. The reference range was not used to interpret this result as normal/abnormal. NRBC x10^3 (test code = 9805330252) See_Comment [Automated me ssage] The system which generated this result transmitted reference range: 10*3/?L. The reference range was not used to interpret this result as normal/abnormal. GRAN MAT (NEUT) % (test code = 770-8) 57.3 % IMM GRAN % (test code = 7407657005) 0.40 % LYMPH % (test code = 736-9) 32.6 % MONO % (test code = 5905-5) 6.8 % EOS % (test code = 713-8) 1.9 % BASO % (test code = 706-2) 1.0 % GRAN MAT x10^3(ANC) (test code = 9369898847) 5.34 10*3/uL 1.99-6.95 IMM GRAN x10^3 (test code = 5517698693) 0.04 10*3/uL 0.00-0.06 LYMPH x10^3 (test code = 731-0) 3.04 10*3/uL 1.09-3.23 MONO x10^3 (test code = 742-7) 0.63 10*3/uL 0.36-1.02 EOS x10^3 (test code = 711-2) 0.18 10*3/uL 0.06-0.53 BASO x10^3 (test code = 704-7) 0.09 10*3/uL 0.01-0.09 General acute hospital with [id number] 07:42:13* Test Item Value Reference Range Interpretation Comme nts WBC (test code = 6690-2) 10.82 See_Comment H [Automated messa ge] The system which generated this result transmitted reference range: 4.20 - 10.70 10*3/?L. The reference range was not used to interpret this result as normal/abnormal. RBC (test code = 789-8) 4.96 See_Comment [Automated [employer] ge] The system which generated this result [...] 33.3 g/dL 31.2-35.0 RDW-SD (test code = 28651-6) 44.4 fL 38.5-51.6 RDW-CV (test code = 788-0) 13.6 % 12.1-15.4 PLT (test code = 777-3) 187 See_Comment [Automated [employer]oving [employer] ge] The system which generated this result transmitted reference range: 150 - 328 10*3/?L. The reference range was not used to interpret this result as normal/abnormal. MPV (test code = 74537-5) 10.4 fL 9.8-13.0 NRBC/100 WBC (test code = 0008217059) 0.0 See_Comment [Automated Circalit ssage] The system which generated this result transmitted reference range: 0.0 - 10.0 /100 WBCs. The reference range was not used to interpret this result as normal/abnormal. NRBC x10^3 (test code = 2291763690) See_Comment [Automated [employer]oving [employer] ge] The system which generated this result transmitted reference range: 10*3/?L. The reference range was not used to interpret this result as normal/abnormal. GRAN MAT (NEUT) % (test code = 770-8) 55.0 % IMM GRAN % (test code = 1111488395) 0.50 % LYMPH % (test code = 736-9) 34.8 % MONO % (test code = 5905-5) 6.5 % EOS % (test code = 713-8) 2.5 % BASO % (test code = 706-2) 0.7 % GRAN MAT x10^3(ANC) (test code = 7829905143) 5.95 10*3/uL 1.99-6.95 IMM GRAN x10^3 (test code = 1768626159) 0.05 10*3/uL 0.00-0.06 LYMPH x10^3 (test code = 731-0) 3.77 10*3/uL 1.09-3.23 H MONO x10^3 (test code = 742-7) 0.70 10*3/uL 0.36-1.02 EOS x10^3 (test code = 711-2) 0.27 10*3/uL 0.06-0.53 BASO x10^3 (test code = 704-7) 0.08 10*3/uL 0.01-0.09 Lab Interpretation (test code = 01592-3) [facility] Hospital[facility] Metabolic [id number] 07:32:47* Test Item Value Reference Range Interpretation Comme nts NA (test code = 6388341945) 136 mmol/L 135-145 K (test code = 8700808687) 4.2 mmol/L 3.5-5.0 CL (test code = 0364405576) 104 mmol/L 98-108 CO2 TOTAL (test code = 0286421715) 21 mmol/L 23-31 L AGAP (test code = 3703923449) 11 2-16 BUN (test code = 4828916771) 17 mg/dL 7-23 GLUCOSE (test code = 6465239633) 125 mg/dL 70-110 H CREATININE (test code = 7474953560) 0.63 mg/dL 0.60-1.25 TOTAL BILI (test code = 9107196654) 0.3 mg/dL 0.1-1.1 CALCIUM (test code = 0041420493) 9.3 mg/dL 8.6-10.6 T PROTEIN (test code = 3452845249) 7.8 g/dL 6.3-8.2 ALBUMIN (test code = 7055049255) 4.5 g/dL 3.5-5.0 ALK PHOS (test code = 3457418793) 97 U/L 34-122 ALTv (test code = 1742-6) 42 U/L 5-50 AST(SGOT) (test code = 0957288943) 34 U/L 13-40 eGFR (test code = 3298760839) 137.7 mL/min/1.73m2 LAURIE (test code = LAURIE) [...] imaging tests). Lab Interpretation (test code = 22254-7) [facility] Hospital[facility], [id number] 07:31:52* Test Item Value Reference Range Interpretation Comme nts LIPASE (test code = 6871945885) 73 U/L 0-220 Lab Interpretation (test cod e = 39191-3) Normal [facility] HospitalTHYROID STIMULATING [id number] 18:17:21 * Test Item Value Reference Range Interpretation Comme nts TSH (test code = 9846179848) See_Comment H [Automated messa ge] The system which generated this result transmitted reference range: 0.45 - 4.70 mIU/L. The reference range was not used to interpret this result as normal/abnormal. Lab Interpretation (test code = 65331-8) Abnormal [facility] [id number] 16:53:41* Test Item Value Reference Range Interpretation Comme nts FREE T4 (test code = 8711057796) See_Comment L [Automated messa ge] The system which generated this result transmitted reference range: 0.78 - 2.20 ng/dL:. The reference range was not used to interpret this result as normal/abnormal. Lab Interpretation (test code = 11799-4) Abnormal [facility] [id number] 16:53:04* Test Item Value Reference Range Interpretation Comme nts FREE T3 (test code = 1511226793) 1.50 pg/mL 2.77-5.27 L Lab Interpretation (test cod e = 24642-6) Abnormal [facility]. METABOLIC PANEL (50777)2022-05-28 16:37:03* Test Item Value Reference Range Interpretation Comme nts NA (test code = 3371638493) 138 mmol/L 135-145 K (test code = 2223920201) 4.4 mmol/L 3.5-5 CL (test code = 4291489881) 101 mmol/L 98-108 CO2 TOTAL (test code = 3904409002) 27 mmol/L 23-31 AGAP (test code = 5219201188) 2-16 BUN (test code = 2171590695) 14 mg/dL 7-23 GLUCOSE (test code = 0969214267) 102 mg/dL 70-110 CREATININE (test code = 6135621923) 0.82 mg/dL 0.6-1.25 TOTAL BILI (test code = 9590901812) 0.5 mg/dL 0.1-1.1 CALCIUM (test code = 6048050314) 9.3 mg/dL 8.6-10.6 T PROTEIN (test code = 7302777375) 8.3 g/dL 6.3-8.2 H ALBUMIN (test code = 0312105794) 4.8 g/dL 3.5-5 ALK PHOS (test code = 9255283768) 75 U/L 34-122 ALTv (test code = 1742-6) 56 U/L 5-50 H AST(SGOT) (test code = 5245261517) 42 U/L 13-40 H eGFR (test code = 1467573256) mL/min/1.73m2 LAURIE (test code = LAURIE) Association [...] imaging tests). Lab Interpretation (test code = 65919-0) Abnormal [facility] WITH [id number] 16:25:38* Test Item Value Reference Range Interpretation Comme nts WBC (test code = 6690-2) See_Comment [Automated Circadence] The system which generated this result transmitted reference range: 4.20 - 10.70 10*3/?L. The reference range was not used to interpret this result as normal/abnormal. RBC (test code = 789-8) See_Comment [Automated [employer] ge] The system which generated this result [...] 33.0 g/dL 31.2-35 RDW-SD (test code = 99500-9) 48.1 fL 38.5-51.6 RDW-CV (test code = 788-0) 14.2 % 12.1-15.4 PLT (test code = 777-3) See_Comment [Automated [employer]] The system which generated this result transmitted reference range: 150 - 328 10*3/?L. The reference range was not used to interpret this result as normal/abnormal. MPV (test code = 18612-7) 9.5 fL 9.8-13 L NRBC/100 WBC (test code = 2300837189) See_Comment [Automated Circal[employer] ssage] The system which generated this result transmitted reference range: 0.0 - 10.0 /100 WBCs. The reference range was not used to interpret this result as normal/abnormal. NRBC x10^3 (test code = 9473174723) See_Comment [Automated [employer]] The system which generated this result transmitted reference range: 10*3/?L. The reference range was not used to interpret this result as normal/abnormal. GRAN MAT (NEUT) % (test code = 770-8) 56.3 % IMM GRAN % (test code = 7332096426) 0.70 % LYMPH % (test code = 736-9) 32.8 % MONO % (test code = 5905-5) 6.2 % EOS % (test code = 713-8) 2.7 % BASO % (test code = 706-2) 1.3 % GRAN MAT x10^3(ANC) (test code = 6672486926) 4.87 10*3/uL 1.99-6.95 IMM GRAN x10^3 (test code = 7097325594) 0.06 10*3/uL 0-0.06 LYMPH x10^3 (test code = 731-0) 2.84 10*3/uL 1.09-3.23 MONO x10^3 (test code = 742-7) 0.54 10*3/uL 0.36-1.02 EOS x10^3 (test code = 711-2) 0.23 10*3/uL 0.06-0.53 BASO x10^3 (test code = 704-7) 0.11 10*3/uL 0.01-0.09 H Lab Interpretation (test code = 54618-1) [facility] 06:03:53* Test Item Value Reference Range Interpretation Comme nts MAGNESIUM (test code = 3728751758) 1.8 mg/dL 1.7-2.4 Lab Interpretation (test cod e = 05008-9) [facility] [id number] 06:00:52* Test Item Value Reference Range Interpretation Comments TROPONIN I (test code = 0630429568) 0.002 ng/mL See_Comment [Automated message] The system [...] of biotin. Lab Interpretation (test code = 63802-7) [facility]OL[facility] (92137)2022-05-06 05:49:11* Test Item Value Reference Range Interpretation Comme nts NA (test code = 7872545804) 136 mmol/L 135-145 K (test code = 3177631322) 4.4 mmol/L 3.5-5 CL (test code = 3252448766) 100 mmol/L 98-108 CO2 TOTAL (test code = 0458999034) 23 mmol/L 23-31 AGAP (test code = 1668228276) 2-16 BUN (test code = 4230984101) 16 mg/dL 7-23 GLUCOSE (test code = 6785763889) 116 mg/dL 70-110 H CREATININE (test code = 2956627343) 0.81 mg/dL 0.6-1.25 TOTAL BILI (test code = 1341890041) 0.6 mg/dL 0.1-1.1 CALCIUM (test code = 6770699024) 10.3 mg/dL 8.6-10.6 T PROTEIN (test code = 9354834207) 9.2 g/dL 6.3-8.2 H ALBUMIN (test code = 3569186424) 5.3 g/dL 3.5-5 H ALK PHOS (test code = 0121318923) 89 U/L 34-122 ALTv (test code = 1742-6) 44 U/L 5-50 AST(SGOT) (test code = 2878934542) 36 U/L 13-40 eGFR (test code = 2729440965) mL/min/1.73m2 LAURIE (test code = LAURIE) Association [...] imaging tests). Lab Interpretation (test code = 90600-1) [facility] 05:48:51* Test Item Value Reference Range Interpretation Comme nts LIPASE (test code = 7938483424) 67 U/L 0-220 Lab Interpretation (test cod e = 92212-0) Normal [facility] WITH [id number] 05:36:33* Test Item Value Reference Range Interpretation Comme nts WBC (test code = 6690-2) See_Comment H [Automated [employer]ad[employer]] The system which generated this result transmitted reference range: 4.20 - 10.70 10*3/?L. The reference range was not used to interpret this result as normal/abnormal. RBC (test code = 789-8) See_Comment [Automated [employer]ad[employer]] The system which generated this result transmitted [...] 34.1 g/dL 31.2-35 RDW-SD (test code = 20275-1) 45.9 fL 38.5-51.6 RDW-CV (test code = 788-0) 13.9 % 12.1-15.4 PLT (test code = 777-3) See_Comment [Automated [employer]] The system which generated this result transmitted reference range: 150 - 328 10*3/?L. The reference range was not used to interpret this result as normal/abnormal. MPV (test code = 22841-0) 9.5 fL 9.8-13 L NRBC/100 WBC (test code = 0271530172) See_Comment [Automated Circal[employer] ssage] The system which generated this result transmitted reference range: 0.0 - 10.0 /100 WBCs. The reference range was not used to interpret this result as normal/abnormal. NRBC x10^3 (test code = 5891677264) See_Comment [Automated [employer]] The system which generated this result transmitted reference range: 10*3/?L. The reference range was not used to interpret this result as normal/abnormal. GRAN MAT (NEUT) % (test code = 770-8) 60.3 % IMM GRAN % (test code = 1028574953) 0.80 % LYMPH % (test code = 736-9) 27.6 % MONO % (test code = 5905-5) 6.8 % EOS % (test code = 713-8) 3.5 % BASO % (test code = 706-2) 1.0 % GRAN MAT x10^3(ANC) (test code = 3985568132) 6.95 10*3/uL 1.99-6.95 IMM GRAN x10^3 (test code = 2549697543) 0.09 10*3/uL 0-0.06 H LYMPH x10^3 (test code = 731-0) 3.19 10*3/uL 1.09-3.23 MONO x10^3 (test code = 742-7) 0.79 10*3/uL 0.36-1.02 EOS x10^3 (test code = 711-2) 0.40 10*3/uL 0.06-0.53 BASO x10^3 (test code = 704-7) 0.12 10*3/uL 0.01-0.09 H Lab Interpretation (test code = 64307-5) Abnormal [facility]. METABOLIC PANEL (53781)2022-05-01 13:28:01* Test Item Value Reference Range Interpretation Comme nts NA (test code = 1454179903) 139 mmol/L 135-145 K (test code = 4810070789) 4.7 mmol/L 3.5-5 CL (test code = 3255066465) 104 mmol/L 98-108 CO2 TOTAL (test code = 4905399826) 23 mmol/L 23-31 AGAP (test code = 2745072692) 2-16 BUN (test code = 2063115695) 14 mg/dL 7-23 GLUCOSE (test code = 0636426935) 128 mg/dL 70-110 H CREATININE (test code = 7138440807) 0.62 mg/dL 0.6-1.25 TOTAL BILI (test code = 7580934606) 0.4 mg/dL 0.1-1.1 CALCIUM (test code = 1892815704) 9.2 mg/dL 8.6-10.6 T PROTEIN (test code = 9251242911) 8.1 g/dL 6.3-8.2 ALBUMIN (test code = 6476158039) 4.6 g/dL 3.5-5 ALK PHOS (test code = 8477284302) 92 U/L 34-122 ALTv (test code = 1742-6) 43 U/L 5-50 AST(SGOT) (test code = 9820469999) 30 U/L 13-40 eGFR (test code = 1912020110) mL/min/1.73m2 LAURIE (test code = LAURIE) Association [...] imaging tests). Lab Interpretation (test code = 21326-6) Abnormal [facility] acute hospital WITH [id number] 13:20:02* Test Item Value Reference Range Interpretation Comme nts WBC (test code = 6690-2) See_Comment [[employer]] The system which generated this result transmitted reference range: 4.20 - 10.70 10*3/?L. The reference range was not used to interpret this result as normal/abnormal. RBC (test code = 789-8) See_Comment [[employer]] The system which generated this result transmitted [...] 32.8 g/dL 31.2-35 RDW-SD (test code = 21688-1) 47.5 fL 38.5-51.6 RDW-CV (test code = 788-0) 14.1 % 12.1-15.4 PLT (test code = 777-3) See_Comment [[employer]] The system which generated this result transmitted reference range: 150 - 328 10*3/?L. The reference range was not used to interpret this result as normal/abnormal. MPV (test code = 87280-2) 9.3 fL 9.8-13 L NRBC/100 WBC (test code = 6057213663) See_Comment [Automated me ssage] The system which generated this result transmitted reference range: 0.0 - 10.0 /100 WBCs. The reference range was not used to interpret this result as normal/abnormal. NRBC x10^3 (test code = 8976327258) See_Comment [Automated messa ge] The system which generated this result transmitted reference range: 10*3/?L. The reference range was not used to interpret this result as normal/abnormal. GRAN MAT (NEUT) % (test code = 770-8) 58.9 % IMM GRAN % (test code = 1435774200) 0.60 % LYMPH % (test code = 736-9) 29.2 % MONO % (test code = 5905-5) 6.8 % EOS % (test code = 713-8) 3.5 % BASO % (test code = 706-2) 1.0 % GRAN MAT x10^3(ANC) (test code = 9979712491) 5.80 10*3/uL 1.99-6.95 IMM GRAN x10^3 (test code = 2710944282) 0.06 10*3/uL 0-0.06 LYMPH x10^3 (test code = 731-0) 2.87 10*3/uL 1.09-3.23 MONO x10^3 (test code = 742-7) 0.67 10*3/uL 0.36-1.02 EOS x10^3 (test code = 711-2) 0.34 10*3/uL 0.06-0.53 BASO x10^3 (test code = 704-7) 0.10 10*3/uL 0.01-0.09 H Lab Interpretation (test code = 75336-7) [id number]04:38* Test Item Value Reference Range Interpretation Comments TROPONIN I (test code = 8834998720) 0.002 ng/mL See_Comment [Automated message] The system [...] of biotin. Lab Interpretation (test code = 27529-3) [facility] [id number] 07:00:14* Test Item Value Reference Range Interpretation Comme nts NT-proBNP (test code = 0472064355) 25 pg/mL See_Comment [Automated message] The system which generated this result transmitted reference range: <=125. The reference range was not used to interpret this result as normal/abnormal. LAURIE (test code = LAURIE) Biotin has been reported to cause a negative bias, interpret results relative to patient's use of biotin. Lab Interpretation (test code = 21919-1) [facility]53:02* Test Item Value Reference Range Interpretation Comme nts ALCOHOL (test code = 2328529972) <10 mg/dL LAURIE (test code = LAURIE) <10 [id number] Toxic>100 Depression of DRUM HANDLER>400 Fatalities [facility]orted [facility] 06:50:57* Test Item Value Reference Range Interpretation Comme nts LIPASE (test code = 5827429245) 65 U/L 0-220 Lab Interpretation (test cod e = 39134-4) [facility] (03806)2022-02-08 06:50:57* Test Item Value Reference Range Interpretation Comme nts NA (test code = 8054776989) 138 mmol/L 135-145 K (test code = 1280934991) 4.3 mmol/L 3.5-5.0 CL (test code = 5433622240) 103 mmol/L 98-108 CO2 TOTAL (test code = 2233298904) 23 mmol/L 23-31 AGAP (test code = 2278118071) 2-16 BUN (test code = 6776834053) 14 mg/dL 7-23 GLUCOSE (test code = 4730129988) 142 mg/dL 70-110 H CREATININE (test code = 8807552050) 0.60 mg/dL 0.60-1.25 TOTAL BILI (test code = 4147401183) 0.5 mg/dL 0.1-1.1 CALCIUM (test code = 9075240257) 9.1 mg/dL 8.6-10.6 T PROTEIN (test code = 6501967872) 7.9 g/dL 6.3-8.2 ALBUMIN (test code = 7947295668) 4.5 g/dL 3.5-5.0 ALK PHOS (test code = 9944833194) 81 U/L 34-122 ALTv (test code = 1742-6) 28 U/L 5-50 AST(SGOT) (test code = 7774597924) 24 U/L 13-40 eGFR (test code = 1221957811) mL/min/1.73m2 LAURIE (test code = LAURIE) Association [...] imaging tests). Lab Interpretation (test code = 28642-9) [facility]normal [facility] THRMPLAS [id number] 06:47:31* Test Item Value Reference Range Interpretation Comme [facility] APTT Patient (test code = 3173-2) See_Comment [Automated message] The system which generated this result transmitted reference range: 23 - 38 Seconds. The reference range was not used to interpret this result as normal/abnormal. LAURIE (test code = LAURIE) The [facility] patient population mean normal value for aPTT is 30 seconds. Lab Interpretation (test code = 99584-8) Normal [facility] HospitalPROT[facility]OMBIN [facility] / [id number] 06:45:33* Test Item Value Reference Range Interpretation Comme [facility] PROTIME PATIENT (test code = 5964-2) See_Comment [Automated [employer]] The system which generated this result transmitted reference range: 12.0 - 14.7 Seconds. The reference range was not used to interpret this result as normal/abnormal. INR (test code = 6301-6) Normal INR <1.1; Warfarin Therapeutic range 2.0 to 3.0 or 2.5 to 3.5, depending upon the indications. Lab Interpretation (test code = 91832-8) Normal [facility] WITH [id number] 06:37:36* Test Item Value Reference Range Interpretation Comme [facility] WBC (test code = 6690-2) See_Comment [Automated [employer]] The system which generated this result transmitted reference range: 4.20 - 10.70 10*3/?L. The reference range was not used to interpret this result as normal/abnormal. RBC (test code = 789-8) See_Comment [Automated [employer]] The system which generated this result transmitted [...] 33.4 g/dL 31.2-35.0 RDW-SD (test code = 28961-5) 42.7 fL 38.5-51.6 RDW-CV (test code = 788-0) 13.1 % 12.1-15.4 PLT (test code = 777-3) See_Comment [Automated messa ge] The system which generated this result transmitted reference range: 150 - 328 10*3/?L. The reference range was not used to interpret this result as normal/abnormal. MPV (test code = 96995-8) 9.7 fL 9.8-13.0 L NRBC/100 WBC (test code = 9374164486) See_Comment [Automated Circalit ssage] The system which generated this result transmitted reference range: 0.0 - 10.0 /100 WBCs. The reference range was not used to interpret this result as normal/abnormal. NRBC x10^3 (test code = 3976275187) <0.01 See_Comment [Automated messa ge] The system which generated this result transmitted reference range: 10*3/?L. The reference range was not used to interpret this result as normal/abnormal. GRAN MAT (NEUT) % (test code = 770-8) 54.9 % IMM GRAN % (test code = 6694870442) 0.70 % LYMPH % (test code = 736-9) 32.9 % MONO % (test code = 5905-5) 8.7 % EOS % (test code = 713-8) 2.0 % BASO % (test code = 706-2) 0.8 % GRAN MAT x10^3(ANC) (test code = 6453290424) 5.84 10*3/uL 1.99-6.95 IMM GRAN x10^3 (test code = 5208422172) 0.07 10*3/uL 0.00-0.06 H LYMPH x10^3 (test code = 731-0) 3.50 10*3/uL 1.09-3.23 H MONO x10^3 (test code = 742-7) 0.92 10*3/uL 0.36-1.02 EOS x10^3 (test code = 711-2) 0.21 10*3/uL 0.06-0.53 BASO x10^3 (test code = 704-7) 0.09 10*3/uL 0.01-0.09 Lab Interpretation (test code = 21033-7) Abnormal [facility] HospitalTROPONIN [id number] 01:09:15* Test Item Value Reference Range Interpretation Comments TROPONIN I (test code = 6535656193) 0.003 ng/mL See_Comment [Automated message] The system [...] of biotin. Lab Interpretation (test code = 09754-1) Normal [facility]COMP[facility]OL[facility] (46721)2021-10-15 00:56:56* Test Item Value Reference Range Interpretation Comme nts NA (test code = 2688622256) 135 mmol/L 135-145 K (test code = 3178962177) 4.6 mmol/L 3.5-5.0 CL (test code = 5705464244) 101 mmol/L 98-108 CO2 TOTAL (test code = 8024790163) 25 mmol/L 23-31 AGAP (test code = 6542897782) 2-16 BUN (test code = 8357910834) 20 mg/dL 7-23 GLUCOSE (test code = 6523844746) 130 mg/dL 70-110 H CREATININE (test code = 8603840450) 0.92 mg/dL 0.60-1.25 TOTAL BILI (test code = 1433824475) 0.4 mg/dL 0.1-1.1 CALCIUM (test code = 1138210631) 10.0 mg/dL 8.6-10.6 T PROTEIN (test code = 8578797042) 8.5 g/dL 6.3-8.2 H ALBUMIN (test code = 0536388728) 4.8 g/dL 3.5-5.0 ALK PHOS (test code = 1889127980) 89 U/L 34-122 ALTv (test code = 1742-6) 59 U/L 5-50 H AST(SGOT) (test code = 3524804492) 38 U/L 13-40 eGFR (test code = 0449482082) mL/min/1.73m2 LAURIE (test code = LAURIE) Association [...] imaging tests). Lab Interpretation (test code = 26865-6) [facility]normal [facility] 00:56:36* Test Item Value Reference Range Interpretation Comme nts LIPASE (test code = 4018944740) 77 U/L 0-220 Lab Interpretation (test cod e = 89082-5) [facility]CBC [facility] [id number] 00:37:36* Test Item Value Reference Range Interpretation Comme nts WBC (test code = 6690-2) See_Comment [Automated [employer]] The system which generated this result transmitted reference range: 4.20 - 10.70 10*3/?L. The reference range was not used to interpret this result as normal/abnormal. RBC (test code = 789-8) See_Comment [Automated [employer]] The system which generated this result transmitted [...] 33.6 g/dL 31.2-35.0 RDW-SD (test code = 72498-6) 44.2 fL 38.5-51.6 RDW-CV (test code = 788-0) 13.3 % 12.1-15.4 PLT (test code = 777-3) See_Comment [Automated [employer]] The system which generated this result transmitted reference range: 150 - 328 10*3/?L. The reference range was not used to interpret this result as normal/abnormal. MPV (test code = 14334-3) 9.5 fL 9.8-13.0 L NRBC/100 WBC (test code = 5748071094) See_Comment [Automated me ssage] The system which generated this result transmitted reference range: 0.0 - 10.0 /100 WBCs. The reference range was not used to interpret this result as normal/abnormal. NRBC x10^3 (test code = 4098172031) <0.01 See_Comment [Automated messa ge] The system which generated this result transmitted reference range: 10*3/?L. The reference range was not used to interpret this result as normal/abnormal. GRAN MAT (NEUT) % (test code = 770-8) 55.3 % IMM GRAN % (test code = 4189418357) 0.60 % LYMPH % (test code = 736-9) 32.5 % MONO % (test code = 5905-5) 7.8 % EOS % (test code = 713-8) 2.7 % BASO % (test code = 706-2) 1.1 % GRAN MAT x10^3(ANC) (test code = 3611073381) 5.74 10*3/uL 1.99-6.95 IMM GRAN x10^3 (test code = 9566255856) 0.06 10*3/uL 0.00-0.06 LYMPH x10^3 (test code = 731-0) 3.37 10*3/uL 1.09-3.23 H MONO x10^3 (test code = 742-7) 0.81 10*3/uL 0.36-1.02 EOS x10^3 (test code = 711-2) 0.28 10*3/uL 0.06-0.53 BASO x10^3 (test code = 704-7) 0.11 10*3/uL 0.01-0.09 H Lab Interpretation (test code = 44242-8) [facility]normal [facility] HospitalCOVID[facility] (ID NOW RAPID TESTING)2021-03-15 04:10:11* Test Item Value Reference Range Interpretation Comme nts SARS-CoV-2 Rapid ID NOW (test code = 05770-8) Not Detected Not Detected LAURIE (test code = LAURIE) ID NOW COVID-19 As say is an isothermal nucleic acid amplification test intended for the qualitative detection of nucleic acid from SARS-CoV-2 viral RNA in nasopharyngeal ([employer]ST[employer] HEL[employer]) specimens. It is used under Emergency Use [...] clinically indicated. Lab Interpretation (test code = 16071-4) Normal [facility]. METABOLIC PANEL (01527)2021-03-15 03:35:30* Test Item Value Reference Range Interpretation Comme nts NA (test code = 9270552991) 139 mmol/L 135-145 K (test code = 8744457576) 3.2 mmol/L 3.5-5.0 L CL (test code = 8139981544) 109 mmol/L 98-108 H CO2 TOTAL (test code = 8985710650) 23 mmol/L 23-31 AGAP (test code = 3193780046) 2-16 BUN (test code = 2895154392) 19 mg/dL 7-23 GLUCOSE (test code = 6681831025) 150 mg/dL 70-110 H CREATININE (test code = 7370746500) 0.81 mg/dL 0.60-1.25 TOTAL BILI (test code = 7436206479) 0.3 mg/dL 0.1-1.1 CALCIUM (test code = 6780747495) 8.2 mg/dL 8.6-10.6 L T PROTEIN (test code = 7032836528) 6.9 g/dL 6.3-8.2 ALBUMIN (test code = 2492004364) 4.0 g/dL 3.5-5.0 ALK PHOS (test code = 7166924047) 77 U/L 34-122 ALTv (test code = 1742-6) 22 U/L 5-50 AST(SGOT) (test code = 2227719468) 26 U/L 13-40 eGFR (test code = 3727856212) mL/min/1.73m2 LAURIE (test code = LAURIE) Association [...] imaging tests). Lab Interpretation (test code = 11029-4) [facility]normal [facility]UR[facility]IS2021-[facility] 03:35:00* Test Item Value Reference Range Interpretation Comme nts APPEARANCE (test code = 4215496045) Clear Clear COLOR (test code = 0143829228) Yellow Yellow PH (test code = 7023453373) 4.8-8.0 SP GRAVITY (test code = 7104877019) 1.003-1.030 GLU U QUAL (test code = 5053488279) Normal Normal BLOOD (test code = 1171786881) Negative Negative KETONES (test code = 3652270130) 5 mg/dL Negative A PROTEIN (test code = 2887-8) Negative Negative UROBILIN (test code = 6393246212) Normal Normal BILIRUBIN (test code = 4867851316) Negative Negative NITRITE (test code = 8274319966) Negative Negative LEUK KENNY (test code = 5213463468) Negative Negative RBC/HPF (test code = 3377315281) <1 See_Comment [Automated messa ge] The system which generated this result transmitted reference range: 0 - 3 HPF. The reference range was not used to interpret this result as normal/abnormal. WBC/HPF (test code = 4837919936) <1 See_Comment [Automated messa ge] The system which generated this result transmitted reference range: 0 - 5 HPF. The reference range was not used to interpret this result as normal/abnormal. BACTERIA (test code = 0108635275) Negative Negative MUCOUS (test code = 5839594240) Slight Negative LPF A SQ EPITH (test code = 6057417162) <1 HPF Lab Interpretation (test code = 65259-9) [facility]normal [facility] WITH [id number] 03:22:25* Test Item Value Reference Range Interpretation [...] 33.3 g/dL 31.2-35.0 RDW-SD (test code = 67927-8) 45.8 fL 38.5-51.6 RDW-CV (test code = 788-0) 13.7 % 12.1-15.4 PLT (test code = 777-3) See_Comment H [Automated messa ge] The system which generated this result transmitted reference range: 150 - 328 10*3/?L. The reference range was not used to interpret this result as normal/abnormal. MPV (test code = 10291-7) 9.4 fL 9.8-13.0 L NRBC/100 WBC (test code = 7848879020) See_Comment [Automated me ssage] The system which generated this result transmitted reference range: 0.0 - 10.0 /100 WBCs. The reference range was not used to interpret this result as normal/abnormal. NRBC x10^3 (test code = 8667808718) <0.01 See_Comment [Automated messa ge] The system which generated this result transmitted reference range: 10*3/?L. The reference range was not used to interpret this result as normal/abnormal. GRAN MAT (NEUT) % (test code = 770-8) 58.4 % IMM GRAN % (test code = 5627898645) 0.50 % LYMPH % (test code = 736-9) 30.5 % MONO % (test code = 5905-5) 7.5 % EOS % (test code = 713-8) 2.2 % BASO % (test code = 706-2) 0.9 % GRAN MAT x10^3(ANC) (test code = 2198649574) 5.75 10*3/uL 1.99-6.95 IMM GRAN x10^3 (test code = 7909323458) 0.05 10*3/uL 0.00-0.06 LYMPH x10^3 (test code = 731-0) 3.00 10*3/uL 1.09-3.23 MONO x10^3 (test code = 742-7) 0.74 10*3/uL 0.36-1.02 EOS x10^3 (test code = 711-2) 0.22 10*3/uL 0.06-0.53 BASO x10^3 (test code = 704-7) 0.09 10*3/uL 0.01-0.09 Lab Interpretation (test code = 33824-7) [facility]OLIC PANEL (61985)2020-09-08 23:50:00* Test Item Value Reference Range Interpretation Comme nts NA (test code = 7649297040) 139 mmol/L 135-145 K (test code = 8253306934) 4.1 mmol/L 3.5-5 CL (test code = 8336481303) 107 mmol/L 98-108 CO2 TOTAL (test code = 8724245825) 22 mmol/L 23-31 L AGAP (test code = 0133960343) 2-16 BUN (test code = 5389641964) 12 mg/dL 7-23 GLUCOSE (test code = 7650459960) 115 mg/dL 70-110 H CREATININE (test code = 3623089517) 0.54 mg/dL 0.6-1.25 L TOTAL BILI (test code = 9684095899) 0.3 mg/dL 0.1-1.1 CALCIUM (test code = 5202900390) 9.3 mg/dL 8.6-10.6 T PROTEIN (test code = 7093401468) 7.6 g/dL 6.3-8.2 ALBUMIN (test code = 2847995151) 4.3 g/dL 3.5-5 ALK PHOS (test code = 5331165702) 80 U/L 34-122 ALTv (test code = 1742-6) 21 U/L 5-50 AST(SGOT) (test code = 8809068862) 21 U/L 13-40 eGFR Calculation (Non-) (test code = 0050605258) mL/min/1.73m2 eGFR Calculation () (test code = 4479675628) mL/min/1.73m2 LAURIE (test code = LAURIE) Association [...] imaging tests). Lab Interpretation (test code = 72005-1) [facility] 23:50:00* Test Item Value Reference Range Interpretation Comme nts LIPASE (test code = 5774534386) 68 U/L 0-220 Lab Interpretation (test cod e = 87545-2) Normal [facility] WITH [id number] 23:22:00* Test Item Value Reference Range Interpretation Comme nts WBC (test code = 6690-2) See_Comment [Automated Circadence] The system which generated this result transmitted reference range: 4.20 - 10.70 10*3/?L. The reference range was not used to interpret this result as normal/abnormal. RBC (test code = 789-8) See_Comment [[employer]] The system which generated this result transmitted [...] 34.1 g/dL 31.2-35 RDW-SD (test code = 44423-0) 40.8 fL 38.5-51.6 RDW-CV (test code = 788-0) 12.5 % 12.1-15.4 PLT (test code = 777-3) See_Comment [Automated messa ge] The system which generated this result transmitted reference range: 150 - 328 10*3/?L. The reference range was not used to interpret this result as normal/abnormal. MPV (test code = 62346-7) 9.1 fL 9.8-13 L NRBC/100 WBC (test code = 1046611010) See_Comment [Automated Circalit ssage] The system which generated this result transmitted reference range: 0.0 - 10.0 /100 WBCs. The reference range was not used to interpret this result as normal/abnormal. NRBC x10^3 (test code = 6709490215) <0.01 See_Comment [Automated messa ge] The system which generated this result transmitted reference range: 10*3/?L. The reference range was not used to interpret this result as normal/abnormal. GRAN MAT (NEUT) % (test code = 770-8) 59.0 % IMM GRAN % (test code = 8637648400) 0.60 % LYMPH % (test code = 736-9) 31.3 % MONO % (test code = 5905-5) 6.6 % EOS % (test code = 713-8) 1.9 % BASO % (test code = 706-2) 0.6 % GRAN MAT x10^3(ANC) (test code = 5198008274) 5.85 10*3/uL 1.99-6.95 IMM GRAN x10^3 (test code = 8550518595) 0.06 10*3/uL 0-0.06 LYMPH x10^3 (test code = 731-0) 3.10 10*3/uL 1.09-3.23 MONO x10^3 (test code = 742-7) 0.65 10*3/uL 0.36-1.02 EOS x10^3 (test code = 711-2) 0.19 10*3/uL 0.06-0.53 BASO x10^3 (test code = 704-7) 0.06 10*3/uL 0.01-0.09 Lab Interpretation (test code = 04500-9) [facility] [id number] 17:21:17CT Abdomen and Pelvis with intravenous contrast. [...] fluid inthe abdomen or in the pelvis.2. Hepatomegaly.[facility]. METABOLIC PANEL (04119)2020-09-06 16:39:00* Test Item Value Reference Range Interpretation Comme nts NA (test code = 5406777254) 138 mmol/L 135-145 K (test code = 1799244480) 4.2 mmol/L 3.5-5 CL (test code = 3498308758) 103 mmol/L 98-108 CO2 TOTAL (test code = 3530746740) 25 mmol/L 23-31 AGAP (test code = 2728558862) 2-16 BUN (test code = 3538893577) 17 mg/dL 7-23 GLUCOSE (test code = 9902726173) 124 mg/dL 70-110 H CREATININE (test code = 2970812109) 0.95 mg/dL 0.6-1.25 TOTAL BILI (test code = 3969043250) 0.4 mg/dL 0.1-1.1 CALCIUM (test code = 7966365417) 9.7 mg/dL 8.6-10.6 T PROTEIN (test code = 7042355314) 7.9 g/dL 6.3-8.2 ALBUMIN (test code = 7133132510) 4.5 g/dL 3.5-5 ALK PHOS (test code = 4056956282) 75 U/L 34-122 ALTv (test code = 1742-6) 28 U/L 5-50 AST(SGOT) (test code = 5447649513) 23 U/L 13-40 eGFR Calculation (Non-) (test code = 5674026969) mL/min/1.73m2 eGFR Calculation () (test code = 0524107455) mL/min/1.73m2 LAURIE (test code = LAURIE) Association [...] imaging tests). Lab Interpretation (test code = 86283-1) [facility] 16:39:00* Test Item Value Reference Range Interpretation Comme nts LIPASE (test code = 6853520051) 70 U/L 0-220 Lab Interpretation (test cod e = 49142-1) Normal [facility]2020-11-18 16:39:00* Test Item Value Reference Range Interpretation Comme nts MAGNESIUM (test code = 9908518263) 1.9 mg/dL 1.7-2.4 Lab Interpretation (test cod e = 34809-5) Normal [facility] HospitalLactic Acid Whole [id number] 16:38:00* Test Item Value Reference Range Interpretation Comme nts LACTIC ACID (test code = 8074496110) 1.51 mmol/L [facility] [id number] 16:20:00* Test Item Value Reference Range Interpretation Comme nts WBC (test code = 6690-2) See_Comment [Automated Circadence] The system which generated this result transmitted reference range: 4.20 - 10.70 10*3/?L. The reference range was not used to interpret this result as normal/abnormal. RBC (test code = 789-8) See_Comment [Automated [employer]] The system which generated this result transmitted [...] 32.8 g/dL 31.2-35 RDW-SD (test code = 05575-4) 42.2 fL 38.5-51.6 RDW-CV (test code = 788-0) 12.6 % 12.1-15.4 PLT (test code = 777-3) See_Comment [Automated Roving Plan[employer] ge] The system which generated this result transmitted reference range: 150 - 328 10*3/?L. The reference range was not used to interpret this result as normal/abnormal. MPV (test code = 51130-4) 9.3 fL 9.8-13 L NRBC/100 WBC (test code = 8937251902) See_Comment [Automated Circalit ssage] The system which generated this result transmitted reference range: 0.0 - 10.0 /100 WBCs. The reference range was not used to interpret this result as normal/abnormal. NRBC x10^3 (test code = 8780666791) <0.01 See_Comment [Automated [employer]oving [employer] ge] The system which generated this result transmitted reference range: 10*3/?L. The reference range was not used to interpret this result as normal/abnormal. GRAN MAT (NEUT) % (test code = 770-8) 64.9 % IMM GRAN % (test code = 6011728250) 0.50 % LYMPH % (test code = 736-9) 25.0 % MONO % (test code = 5905-5) 7.5 % EOS % (test code = 713-8) 1.3 % BASO % (test code = 706-2) 0.8 % GRAN MAT x10^3(ANC) (test code = 2488909579) 5.99 10*3/uL 1.99-6.95 IMM GRAN x10^3 (test code = 7498502125) 0.05 10*3/uL 0-0.06 LYMPH x10^3 (test code = 731-0) 2.31 10*3/uL 1.09-3.23 MONO x10^3 (test code = 742-7) 0.69 10*3/uL 0.36-1.02 EOS x10^3 (test code = 711-2) 0.12 10*3/uL 0.06-0.53 BASO x10^3 (test code = 704-7) 0.07 10*3/uL 0.01-0.09 Lab Interpretation (test code = 54159-8) [facility] (34410)2020-08-30 10:29:00* Test Item Value Reference Range Interpretation Comme nts NA (test code = 1377553511) 139 mmol/L 135-145 K (test code = 9587354386) 4.7 mmol/L 3.5-5 CL (test code = 4477366249) 105 mmol/L 98-108 CO2 TOTAL (test code = 3022008151) 24 mmol/L 23-31 AGAP (test code = 5997607940) 2-16 BUN (test code = 4178885015) 21 mg/dL 7-23 GLUCOSE (test code = 9032095209) 109 mg/dL 70-110 CREATININE (test code = 3029205428) 0.99 mg/dL 0.6-1.25 TOTAL BILI (test code = 7512901451) 0.4 mg/dL 0.1-1.1 CALCIUM (test code = 8619544277) 9.4 mg/dL 8.6-10.6 T PROTEIN (test code = 5429827094) 7.4 g/dL 6.3-8.2 ALBUMIN (test code = 9109446278) 4.2 g/dL 3.5-5 ALK PHOS (test code = 4118062731) 68 U/L 34-122 ALTv (test code = 1742-6) 33 U/L 5-50 AST(SGOT) (test code = 7942376248) 28 U/L 13-40 eGFR Calculation (Non-) (test code = 8554817909) mL/min/1.73m2 eGFR Calculation () (test code = 3386218684) mL/min/1.73m2 LAURIE (test code = LAURIE) Association [...] in imaging tests). General acute hospital WITH [id number] 09:50:00* Test Item Value Reference Range Interpretation [...] 32.4 g/dL 31.2-35 RDW-SD (test code = 73033-0) 43.6 fL 38.5-51.6 RDW-CV (test code = 788-0) 13.0 % 12.1-15.4 PLT (test code = 777-3) See_Comment [Automated message] The system which generated this result transmitted reference range: 150 - 328 10*3/?L. The reference range was not used to interpret this result as normal/abnormal. MPV (test code = 23985-3) 10.0 fL 9.8-13 NRBC/100 WBC (test code = 6844755033) See_Comment [Automated message] The system which generated this result transmitted reference range: 0.0 - 10.0 /100 WBCs. The reference range was not used to interpret this result as normal/abnormal. NRBC x10^3 (test code = 7075567776) <0.01 See_Comment [Automated message] The system which generated this result transmitted reference range: 10*3/?L. The reference range was not used to interpret this result as normal/abnormal. GRAN MAT (NEUT) % (test code = 770-8) 80.1 % IMM GRAN % (test code = 3065282855) 0.50 % LYMPH % (test code = 736-9) 12.5 % MONO % (test code = 5905-5) 6.5 % EOS % (test code = 713-8) 0.1 % BASO % (test code = 706-2) 0.3 % GRAN MAT x10^3(ANC) (test code = 8568587019) 12.09 10*3/uL 1.99-6.95 H IMM GRAN x10^3 (test code = 8843747082) 0.08 10*3/uL 0-0.06 H LYMPH x10^3 (test code = 731-0) 1.89 10*3/uL 1.09-3.23 MONO x10^3 (test code = 742-7) 0.98 10*3/uL 0.36-1.02 EOS x10^3 (test code = 711-2) <0.03 0.06-0.53 L BASO x10^3 (test code = 704-7) 0.04 10*3/uL 0.01-0.09 Lab Interpretation (test code = 78260-9) [facility] (ALB,T.PRO,BILI T,BU/BC,ALT,AST,ALK PHOS)2020-08-28 21:15:00* Test Item Value Reference Range Interpretation Comme nts TOTAL BILI (test code = 4727254105) 0.6 mg/dL 0.1-1.1 BILI UNCON (test code = 8564671549) 0.4 mg/dL 0.1-1.1 BILI CONJ (test code = 8612900473) 0.0 mg/dL 0-0.3 T PROTEIN (test code = 3580455932) 7.2 g/dL 6.3-8.2 ALBUMIN (test code = 2149895818) 3.9 g/dL 3.5-5 ALK PHOS (test code = 0565953560) 65 U/L 34-122 ALTv (test code = 1742-6) 20 U/L 5-50 AST(SGOT) (test code = 0729298074) 25 U/L 13-40 Lab Interpretation (test cod e = 87491-9) [facility] [id number] 18:22:30 Hepatomegaly with moderate hepatic steatosis. Cholelithiasis [...] could be related to stone. [facility] [id number] 14:32:06No acute cardiopulmonary abnormality. Preliminary Report Dictated [...] have reviewed this study andagree with theabove report.[facility] Metabolic Panel (NA, K, CL, CO2, GLUCOSE, BUN, CREATININE, CA) 2020-08-28 11:39:00* Test Item Value Reference Range Interpretation Comme nts NA (test code = 1729289515) 137 mmol/L 135-145 K (test code = 4520501611) 3.9 mmol/L 3.5-5 CL (test code = 2170223579) 104 mmol/L 98-108 CO2 TOTAL (test code = 6960521232) 28 mmol/L 23-31 AGAP (test code = 7905837635) 2-16 BUN (test code = 6185716361) 15 mg/dL 7-23 GLUCOSE (test code = 2560649159) 96 mg/dL 70-110 CREATININE (test code = 7187662718) 0.68 mg/dL 0.6-1.25 CALCIUM (test code = 3600634220) 9.2 mg/dL 8.6-10.6 eGFR Calculation (Non-) (test code = 8691704286) mL/min/1.73m2 eGFR Calculation () (test code = 3735699616) mL/min/1.73m2 LAURIE (test code = LAURIE) Association [...] urine or abnormalities in imaging tests). [facility] WO [id number] 19:39:221. ?Diffuse bladder wall thickening is likely [...] study and agree with theabove report.[facility]ATED[facility] 2020-08-27 19:34:00* Test Item Value Reference Range Interpretation Comme nts POCT GLU (test code = 1400728255) 95 mg/dL 70-110 Lab Interpretation (test cod e = 91138-8) Normal [facility] [id number] 19:12:00* Test Item Value Reference Range Interpretation Comme nts TROPONIN I (test code = 4672325174) <0.012 See_Comment [Automated message] The system which [...] biotin. ? Lab Interpretation (test code = 44409-2) Normal [facility])2020-08-27 14:42:00* Test Item Value Reference Range Interpretation Comme nts POCT GLU (test code = 9526764542) 99 mg/dL 70-110 Lab Interpretation (test cod e = 38060-9) Normal [facility] [id number] 13:09:00* Test Item Value Reference Range Interpretation Comme nts TROPONIN I (test code = 4144498730) <0.012 See_Comment [Automated message] The system which [...] biotin. ? Lab Interpretation (test code = 30263-7) Normal [facility]LIP[facility] PANEL (79873)(TOTAL CHOLESTEROL, TRIGLYCERIDES, HDL)2020-08-27 08:31:00* Test Item Value Reference Range Interpretation Comme nts CHOL (test code = 9693005703) 208 mg/dL 120-200 H HDL (test code = 5903664939) 28 mg/dL >40 L HDLC RATIO (test code = 1129801144) See_Comment H [Automated Circadence] The system which generated this result transmitted reference range: <=5.0. The reference range was not used to interpret this result as normal/abnormal. TRIG (test code = 6265814012) 351 mg/dL 30-170 H LDL CHOL (test code = 86313-3) 110 mg/dL See_Comment [Automated [employer]] The system which generated this result transmitted reference range: <=160. The reference range was not used to interpret this result as normal/abnormal. VLDL (test code = 0243315970) 70 mg/dL 5-60 H Lab Interpretation (test code = 77673-9) Abnormal [facility] HospitalTHYROID STIMULATING [id number] 08:00:00 * Test Item Value Reference Range Interpretation Comme nts TSH (test code = 9071618370) See_Comment L Biotin has been reported to cause a negative bias, interpret results relative to patient's use of biotin. [Automated message] The system which generated this result transmitted reference range: 0.45 - 4.70 mIU/L. The reference range was not used to interpret this result as normal/abnormal. 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 It is used under Emergency Use [...] clinically indicated. Lab Interpretation (test code = 76341-9) Normal [facility] / [facility] - DR[facility] SCRE[facility] [id number] 06:58:00* Test Item Value Reference Range Interpretation Comme nts BENZO U (test code = 5518233981) Negative Negative HORACIO U (test code = 9309551841) Negative Negative AMPHET (test code = 0770428119) Negative Negative THC (test code = 0939411348) Negative Negative METHADONE (test code = 1950415184) Negative Negative Meth U (test code = 2726500168) Negative Negative OPIATES (test code = 1396135316) Negative Negative Cocaine Metabolite (test code = 1821147298) Negative Negative PROPOXY (test code = 5597905061) Negative Negative Tric U (test code = 7247508871) Negative Negative PCP (test code = 7066182033) Negative Negative OXYCOD (test code = 0192146102) Negative Negative LAURIE (test code = LAURIE) [...] legal testing). Lab Interpretation (test code = 92348-2) Normal [facility] HospitalUrinalysis2020-11-08 06:51:00* Test Item Value Reference Range Interpretation Comme nts APPEARANCE (test code = 5886816356) Clear Clear COLOR (test code = 1733345155) Yellow Yellow PH (test code = 4422260872) 4.8-8.0 SP GRAVITY (test code = 5391483311) 1.003-1.030 GLU U QUAL (test code = 9747234456) Normal Normal BLOOD (test code = 7745610549) Negative Negative KETONES (test code = 0632519103) 20 mg/dL Negative A PROTEIN (test code = 2887-8) Negative Negative UROBILIN (test code = 7558609251) Normal Normal BILIRUBIN (test code = 5267225991) Negative Negative NITRITE (test code = 9454165005) Negative Negative LEUK KENNY (test code = 7030669079) Negative Negative RBC/HPF (test code = 9458973113) See_Comment [Automated [employer]] The system which generated this result transmitted reference range: 0 - 3 HPF. The reference range was not used to interpret this result as normal/abnormal. WBC/HPF (test code = 3470524403) See_Comment [Automated messa ge] The system which generated this result transmitted reference range: 0 - 5 HPF. The reference range was not used to interpret this result as normal/abnormal. BACTERIA (test code = 4107464118) Negative Negative MUCOUS (test code = 6431567991) Slight Negative LPF A Lab Interpretation (test code = 12077-7) Abnormal [facility] HospitalTroponin [id number] 06:45:00* Test Item Value Reference Range Interpretation Comme nts TROPONIN I (test code = 0289247193) <0.012 See_Comment [Automated message] The system which [...] biotin. ? Lab Interpretation (test code = 67036-4) Normal [facility] HospitalETHANOL2020-11-08 06:34:00* Test Item Value Reference Range Interpretation Comme nts ALCOHOL (test code = 3763333559) 14 mg/dL LAURIE (test code = LAURIE) <10 Odnlnnms26-623 Toxic>100 Depression of DRUM HANDLER>400 Fatalities Reported [facility] HospitalBasi Metabolic Panel (NA, K, CL, CO2, GLUCOSE, BUN, CREATININE, CA)2020-08-27 06:33:00* Test Item Value Reference Range Interpretation Comme nts NA (test code = 9564539076) 137 mmol/L 135-145 K (test code = 3201148887) 3.6 mmol/L 3.5-5 CL (test code = 8361087246) 102 mmol/L 98-108 CO2 TOTAL (test code = 9175864263) 26 mmol/L 23-31 AGAP (test code = 8019712401) 2-16 BUN (test code = 3139557620) 13 mg/dL 7-23 GLUCOSE (test code = 1805414460) 119 mg/dL 70-110 H CREATININE (test code = 6818895660) 0.86 mg/dL 0.6-1.25 CALCIUM (test code = 8557375050) 9.8 mg/dL 8.6-10.6 eGFR Calculation (Non-) (test code = 1870553057) mL/min/1.73m2 eGFR Calculation () (test code = 0208073548) mL/min/1.73m2 LAURIE (test code = LAURIE) Association [...] imaging tests). Lab Interpretation (test code = 78838-1) Abnormal [facility] HospitalHepatic Function Panel (ALB, T.PRO, BILI T, BU/BC, ALT, AST, ALK PHOS)2020-08-27 06:33:00* Test Item Value Reference Range Interpretation Comme nts TOTAL BILI (test code = 3488357101) 0.3 mg/dL 0.1-1.1 BILI UNCON (test code = 2589094201) 0.2 mg/dL 0.1-1.1 BILI CONJ (test code = 1953574353) 0.0 mg/dL 0-0.3 T PROTEIN (test code = 9634268407) 7.8 g/dL 6.3-8.2 ALBUMIN (test code = 0172450356) 4.5 g/dL 3.5-5 ALK PHOS (test code = 8716145099) 71 U/L 34-122 ALTv (test code = 1742-6) 26 U/L 5-50 AST(SGOT) (test code = 0694710568) 26 U/L 13-40 Lab Interpretation (test cod e = 96388-1) Normal [facility] HospitalLipase [id number] 06:33:00* Test Item Value Reference Range Interpretation Comme nts LIPASE (test code = 4302392204) 77 U/L 0-220 Lab Interpretation (test cod e = 24466-0) Normal [facility] HospitalaPTT2020-11-08 06:19:00* Test Item Value Reference Range Interpretation Comme nts APTT Patient (test code = 3173-2) See_Comment [Automated message] The system which generated this result transmitted reference range: 23 - 38 Seconds. The reference range was not used to interpret this result as normal/abnormal. LAURIE (test code = LAURIE) The [facility] patient population mean normal value for aPTT is 30 seconds. Lab Interpretation (test code = 67881-6) Normal [facility] HospitalProthrombin Time (PT) / [id number] 06:17:00 * Test Item Value Reference Range Interpretation Comme nts PROTIME PATIENT (test code = 5964-2) See_Comment [Automated [employer] ge] The system which generated this result transmitted reference range: 12.0 - 14.7 Seconds. The reference range was not used to interpret this result as normal/abnormal. INR (test code = 6301-6) Normal INR <1.1; Warfarin Therapeutic range 2.0 to 3.0 or 2.5 to 3.5, depending upon the indications. Lab Interpretation (test code = 43511-0) Normal [facility] [id number] 06:07:00* Test Item Value Reference Range Interpretation Comme [facility] WBC (test code = 6690-2) See_Comment [Automated [employer]] The system which generated this result transmitted reference range: 4.20 - 10.70 10*3/?L. The reference range was not used to interpret this result as normal/abnormal. RBC (test code = 789-8) See_Comment [Automated [employer]] The system which generated this result transmitted [...] 32.8 g/dL 31.2-35 RDW-SD (test code = 28258-4) 42.9 fL 38.5-51.6 RDW-CV (test code = 788-0) 12.7 % 12.1-15.4 PLT (test code = 777-3) See_Comment [Automated [employer]] The system which generated this result transmitted reference range: 150 - 328 10*3/?L. The reference range was not used to interpret this result as normal/abnormal. MPV (test code = 67861-7) 9.1 fL 9.8-13 L NRBC/100 WBC (test code = 4412053616) See_Comment [Automated me ssage] The system which generated this result transmitted reference range: 0.0 - 10.0 /100 WBCs. The reference range was not used to interpret this result as normal/abnormal. NRBC x10^3 (test code = 3747668242) <0.01 See_Comment [Automated messa ge] The system which generated this result transmitted reference range: 10*3/?L. The reference range was not used to interpret this result as normal/abnormal. GRAN MAT (NEUT) % (test code = 770-8) 52.4 % IMM GRAN % (test code = 4140029908) 0.50 % LYMPH % (test code = 736-9) 37.8 % MONO % (test code = 5905-5) 6.2 % EOS % (test code = 713-8) 2.3 % BASO % (test code = 706-2) 0.8 % GRAN MAT x10^3(ANC) (test code = 1978696474) 4.33 10*3/uL 1.99-6.95 IMM GRAN x10^3 (test code = 2137144017) 0.04 10*3/uL 0-0.06 LYMPH x10^3 (test code = 731-0) 3.13 10*3/uL 1.09-3.23 MONO x10^3 (test code = 742-7) 0.51 10*3/uL 0.36-1.02 EOS x10^3 (test code = 711-2) 0.19 10*3/uL 0.06-0.53 BASO x10^3 (test code = 704-7) 0.07 10*3/uL 0.01-0.09 Lab Interpretation (test code = 97337-1) Abnormal [facility] [id number] 04:41:00* Test Item Value Reference Range Interpretation Comme nts TROPONIN I (test code = 0445982741) 0.000 ng/mL See_Comment [Automated message] The system [...] biotin. ? Lab Interpretation (test code = 05327-4) Normal [facility] / [facility] [id number] 03:46:00* Test Item Value Reference Range Interpretation Comme nts BENZO U (test code = 8966781941) Negative Negative HORACIO U (test code = 1638906676) Negative Negative AMPHET (test code = 9157881273) Negative Negative THC (test code = 3681548815) Negative Negative METHADONE (test code = 4277160463) Negative Negative Meth U (test code = 2593886869) Negative Negative OPIATES (test code = 5501142167) Presumptive Positive Negative A Cocaine Metabolite (test code = 4665930961) Negative Negative PROPOXY (test code = 8072584504) Negative Negative Tric U (test code = 7312654221) Negative Negative PCP (test code = 7354258194) Negative Negative OXYCOD (test code = 9064545282) Negative Negative LAURIE (test code = LAURIE) [...] legal testing). Lab Interpretation (test code = 87708-3) Abnormal [facility] HospitalD-[id number] 03:29:00* Test Item Value Reference Range Interpretation Comments D-DIMER (test code = 0826723785) <0.27 See_Comment [Automated message] The system which [...] a diagnosis. Lab Interpretation (test code = 40258-8) Normal [facility] HospitalLIPASE2020-09-21 02:07:00* Test Item Value Reference Range Interpretation Comme nts LIPASE (test code = 3760191433) 58 U/L 0-220 Lab Interpretation (test cod e = 01834-9) Normal [facility] HospitalXR CHEST 1 [id number] 01:44:02No acute cardiopulmonary abnormality. Preliminary Report Dictated by Resident: Max Jeter I, Maryamnaz ?Falamaki, MD., have reviewed this study and agree [...] study and agree with theabove report.[facility] TROPONIN [id number] 01:40:00* Test Item Value Reference Range Interpretation Comme nts TROPONIN I (test code = 6279141274) 0.000 ng/mL See_Comment [Automated message] The system [...] biotin. ? Lab Interpretation (test code = 52670-7) Normal [facility] HospitalPROTHROMBIN TIME / [id number] 01:39:00* Test Item Value Reference Range Interpretation [...] the indications. 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 It is used under Emergency Use [...] clinically indicated. Lab Interpretation (test code = 31881-4) Normal [facility] HospitalCOMP. METABOLIC PANEL (07881)2020-07-10 01:29:00* Test Item Value Reference Range Interpretation Comme nts NA (test code = 8489865605) 136 mmol/L 135-145 K (test code = 4471554424) 3.4 mmol/L 3.5-5 L CL (test code = 8299672403) 98 mmol/L 98-108 CO2 TOTAL (test code = 5169000665) 26 mmol/L 23-31 AGAP (test code = 4857625172) 2-16 BUN (test code = 4965258556) 16 mg/dL 7-23 GLUCOSE (test code = 9733412464) 165 mg/dL 70-110 H CREATININE (test code = 0470534270) 0.94 mg/dL 0.6-1.25 TOTAL BILI (test code = 3828573855) 0.4 mg/dL 0.1-1.1 CALCIUM (test code = 6418718886) 9.7 mg/dL 8.6-10.6 T PROTEIN (test code = 7667515012) 8.2 g/dL 6.3-8.2 ALBUMIN (test code = 9997581810) 4.4 g/dL 3.5-5 ALK PHOS (test code = 0314016890) 77 U/L 34-122 ALTv (test code = 1742-6) 31 U/L 5-50 AST(SGOT) (test code = 4409285369) 26 U/L 13-40 eGFR Calculation (Non-) (test code = 2135346243) mL/min/1.73m2 eGFR Calculation () (test code = 0293885525) mL/min/1.73m2 LAURIE (test code = LAURIE) Association [...] imaging tests). Lab Interpretation (test code = 14104-9) Abnormal [facility] [id number] 01:11:00* Test Item Value Reference Range Interpretation Comme nts WBC (test code = 6690-2) See_Comment [Automated [employer]] The system which generated this result transmitted reference range: 4.20 - 10.70 10*3/?L. The reference range was not used to interpret this result as normal/abnormal. RBC (test code = 789-8) See_Comment [Automated [employer]] The system which generated this result transmitted [...] 34.0 g/dL 31.2-35 RDW-SD (test code = 42594-5) 42.6 fL 38.5-51.6 RDW-CV (test code = 788-0) 13.0 % 12.1-15.4 PLT (test code = 777-3) See_Comment [Automated [employer]] The system which generated this result transmitted reference range: 150 - 328 10*3/?L. The reference range was not used to interpret this result as normal/abnormal. MPV (test code = 81687-6) 9.5 fL 9.8-13 L NRBC/100 WBC (test code = 8064909112) See_Comment [Automated me ssage] The system which generated this result transmitted reference range: 0.0 - 10.0 /100 WBCs. The reference range was not used to interpret this result as normal/abnormal. NRBC x10^3 (test code = 8698525423) <0.01 See_Comment [Automated messa ge] The system which generated this result transmitted reference range: 10*3/?L. The reference range was not used to interpret this result as normal/abnormal. GRAN MAT (NEUT) % (test code = 770-8) 65.5 % IMM GRAN % (test code = 3111284260) 0.70 % LYMPH % (test code = 736-9) 26.1 % MONO % (test code = 5905-5) 5.7 % EOS % (test code = 713-8) 1.2 % BASO % (test code = 706-2) 0.8 % GRAN MAT x10^3(ANC) (test code = 7302772664) 6.62 10*3/uL 1.99-6.95 IMM GRAN x10^3 (test code = 7128956257) 0.07 10*3/uL 0-0.06 H LYMPH x10^3 (test code = 731-0) 2.64 10*3/uL 1.09-3.23 MONO x10^3 (test code = 742-7) 0.58 10*3/uL 0.36-1.02 EOS x10^3 (test code = 711-2) 0.12 10*3/uL 0.06-0.53 BASO x10^3 (test code = 704-7) 0.08 10*3/uL 0.01-0.09 Lab Interpretation (test code = 34928-8) Abnormal [facility] Consult Notes Date/Time Note Provider Source 2025-03-28 19:32:22 Associated Order(s): CONSULT CARDIOLOGY [facility] Cardiology Consult PCP: PATIENT DOES NOT HAVE A PCP Date of Service: 03/28/2025 CHIEF COMPLAINT/reason for consult: Chest pain HISTORY OF PRESENT ILLNESS Marysol Cheung is a 49 years old male with past medical history of obesity, cigarette smoking, hypertension, hyperlipidemia and coronary artery disease status post PCI stenting in 2023. He does not follow-up with cardiology. He came to the hospital for chest pain. Today around 1 PM he woke up with left-sided chest pressure, radiating to the left arm, associate with dyspnea and sweating. The pain lasted a few hours. Currently it is intermittent. Does not have exertional chest pain. EKG showed no acute changes. Troponin has been negative. PAST MEDICAL HISTORY Past Medical History: Diagnosis Date HTN (hypertension) Hypothyroidism Past Surgical History: Procedure Laterality Date LAPAROSCOPIC CHOLECYSTECTOMY N/A 08/29/2020 Surgeon: Vaishlai Vicente MD; Location: [facility] OR Location OTHER Testicular surgery PCI-STENT TONGUE TO LIP SURGERY TONSILLECTOMY Family History Problem Relation Age of Onset Hypertension Mother Hypertension Father Diabetes Father ALLERGIES Allergies Allergen Reactions Penicillin Shortness of Breath Confirmed with patient that he does an allergy to it MEDICATIONS No current facility-administered medications on file prior to encounter. Current Outpatient Medications on File Prior to Encounter Medication Sig Dispense Refill aspirin 81 mg tablet Take 1 tablet by mouth daily. clopidogrel bisulfate (CLOPIDOGREL ORAL) Take by mouth. levothyroxine sodium (SYNTHROID ORAL) Take by mouth daily. LISINOPRIL ORAL Take by mouth daily. SOCIAL HISTORY Social History Socioeconomic History Marital status: Single Tobacco Use Smoking status: Every Day Current packs/day: 0.25 Types: Cigarettes Smokeless tobacco: Never Substance and Sexual Activity Alcohol use: Not Currently Comment: 6beers on the weekend Drug use: Never REVIEW OF SYSTEMS At least 10 systems reviewed, negative except as mentioned in HPI PHYSICAL EXAMINATION Vitals: 03/28/25 0800 03/28/25 1000 03/28/25 1050 03/28/25 1601 BP: (!) 134/100 (!) 158/95 138/81 118/87 Pulse: 83 81 76 70 Resp: 19 19 16 Temp: 36.6 ?C (97.8 ?F) 36.1 ?C (97 ?F) TempSrc: SpO2: 95% 94% 95% 95% Weight: 116 kg (255 lb 12.8 oz) Height: 1.727 m (5' 8") Constitutional: alert and oriented x 3 (person, place and date/time); no apparent distress, obese ENT: normocephalic atraumatic, supple, no lymphadenopathy, no bruits, no JVD Lungs: clear to auscultation bilaterally Cardiovascular: S1, S2 normal, regular; no murmurs, rubs or gallops GI: soft; non-tender; non-distended; normoactive bowel sounds : not examined Musculoskeletal: Extremities: no clubbing, cyanosis, or edema Skin: no rashes Neuro: no focal deficits LABS - reviewed pertinent labs as below: CBC BMP PT/INR WBC x10 3 (/CMM) Date Value 04/01/2005 12.7 (H) WBC (10*3/?L) Date Value 03/28/2025 8.51 NA Date Value 03/28/2025 135 mmol/L 04/01/2005 140 MMOL/L No results found for: "PT" PLT x10 3 (/CMM) Date Value 04/01/2005 233 PLT (10*3/?L) Date Value 03/28/2025 259 K Date Value 03/28/2025 4.0 mmol/L 04/01/2005 3.9 MMOL/L PT INR (no units) Date Value 04/01/2005 1.0 INR (no units) Date Value 02/08/2022 1.0 HGB Date Value 03/28/2025 15.2 g/dL 04/01/2005 15.3 G/DL BUN Date Value 03/28/2025 14 mg/dL 04/01/2005 14 MG/DL HCT (%) Date Value 03/28/2025 45.7 04/01/2005 44.0 CREATININE Date Value 03/28/2025 0.54 mg/dL (L) 04/01/2005 0.79 MG/DL LIPID PROFILE GLUCOSE Date Value 03/28/2025 218 mg/dL (H) 04/01/2005 92 MG/DL CHOL (mg/dL) Date Value 08/26/2020 208 (H) TSH LDL CHOL (mg/dL) Date Value 08/26/2020 110 TSH (mIU/L) Date Value 05/28/2022 139.00 (H) CARDIAC ENZYMES HDL (mg/dL) Date Value 08/26/2020 28 (L) No results found for: "CK" TRIG (mg/dL) Date Value 08/26/2020 351 (H) LFTs No results found for: "CKMB" AST(SGOT) (U/L) Date Value 03/28/2025 32 04/01/2005 21 TROPONIN I (ng/mL) Date Value 03/28/2025 0.003 ALT(SGPT) (U/L) Date Value 03/30/2019 34 04/01/2005 29 ALTv (U/L) Date Value 03/28/2025 21 No results found for: "BNP" IMAGING - reviewed, pertinent results as below: Chest x-ray-clear EKG: Normal sinus rhythm, normal EKG ASSESSMENT/PLAN Principal Problem: Chest pain, unspecified type Active Problems: Essential hypertension Cigarette nicotine dependence without complication Obesity (BMI 30-39.9) Coronary artery disease involving [place] coronary artery of [place] heart with angina pectoris Chest pain-he reported that the chest pain is similar to his previous angina before the PCI stenting in 2023. No acute EKG changes. Continue to trend troponin to rule out myocardial infarction. Echocardiogram to assess ejection fraction, wall motion and pericardial space. We will obtain cardiac records to review. Will be determining further ischemic evaluation. Continue aspirin and Plavix. Recommend to start high intensity Lipitor 40 mg daily. Coronary artery disease-status post PCI stenting around July 2024. He takes aspirin and Plavix. He does not take statins at home. Recommend fasting lipid panel. Goal LDL below 55-70. Start Lipitor 40 mg daily. Hypertension-his blood pressure control is acceptable. Continue lisinopril. Cigarette smoker-recommend smoking cessation. Obesity--discussed diet, exercise and weight loss Total Visit Time: 45 mins The total Visit time for today's visit with Marysol Cheung encompassed 45 minutes. Time was spent reviewing the chart before, during and after the visit, reviewing laboratory results, taking interval history, performing the documented physical examination, completing and "cleaning up" the electronic medical record as well as addressing any questions and concerns. The time spent for patient care includes: PreCharting (eg, review of tests, notes, etc.), Obtaining and/or reviewing separately obtained history (Care Everywhere or paper records), Counseling and educating the patient/family/caregiver, Ordering medications, tests, or procedures, Ordering referrals and/or communicating with other health career and transition teacher (when not separately reported), Documenting clinical information in the electronic or other health record, and Independently interpreting results (not separately reported) and/or communicating results to the patient/family/caregiver. This report was dictated using [employer] and is subject to voice recognition errors. Please excuse any unusual inaccuracies. My diagnostic impression and treatment plans were discussed at length with the patient. All side effects as well as drug-drug interactions and risks discussed at length. Ample opportunity was offered and encouraged to ask questions during this visit and patient appreciated the answers given by me and verbzalised statisfcation in the answers given. Thank you for allowing us to participate in the care of your patient. Please feel free to contact us for any questions or if we can be of further assistance. Bryson Cohen MD, FACC, MALINI Life Skills Educator Division of Cardiovascular Medicine [facility] History and Physical Notes Date/Time Note Provider Source 2025-03-30 12:13:07 Cardiac Cath Pre-Procedure Sedation Evaluation See H&P for medical history and current medications. Allergies were reviewed. Indication: angina NPO Status Solids: >6 hours Clear liquids: >2 hours History History of anesthesia/sedation complications: No History of difficult airway: No History of neck problems, craniofacial abnormalities, head/neck surgery: No Increased risk for airway obstruction, sleep apnea, morbid obesity: No Focused Physical Exam Heart: documented in H&P Normal Lung: documented in H&P Normal Airway Mallampati: III Mouth opening: Normal Range of motion neck: Normal Dentition: Normal Assessment: ASA 3 Plan: Moderate sedation The risks, benefits, and treatment options of sedation were discussed with the patient/guardian and they desire to proceed. The consent form was completed and signed. Case discussed with Dr.Alwash Savage Pool Mai, DO Search Specialist, PGY-4 Cosigned by Carisa Franks MD at 03/30/2025 12:24 PM CDT Associated attestation - Carisa Franks MD - 03/30/2025 12:24 PM CDT Agree CARDIOVASCULAR DISEASE [facility] 2025-03-29 18:13:57 [facility] Team Admit H&P PCP: PATIENT DOES NOT HAVE A PCP Date of Service: 03/29/2025 CC: chest pain HISTORY OF PRESENT ILLNESS: Marysol Cheung is a 49 year old male with a PMH of HTN, CAD s/p PCI (2023), Obesity, Tobacco use, Prediabetes, Hypothyroidism who presents from [facility] for chest pain. Patient presented to [facility] for chest pain on Wednesday 03/28 for chest pain that woke him up out of sleep. Patient was reporting left-sided chest pain at approximately 1:00 am that did not resolve. He reported the pain as sharp and pressure-like with no radiation. He reported his chest pain was similar to his previous [place]. At [facility], patient was noted to be hypertensive (152/92) which eventually improved. Troponin was negative x 2 and EKG showed no acute changes at the time. He was transferred to [facility] for LHC. Echocardiogram did not show any significant abnormalities (EF 55-60%, no WMA, no diastolic dysfunction). On arrival to [facility], patient was doing well. He reports minimal chest pain 10/29. Patient reports he had PCI placed last year but is unsure which month it was performed. Additionally, he reports noncompliance with his DAPT saying he misses doses 2-3 times per week. He reports taking ASA, Plavix, Lisinopril, and Levothyroxine. Denies taking other medications. Denies additional symptoms such as shortness of breath, dizziness, lightheadedness, lower extremity edema. Reporting sinus congestion and sore throat. Patient is hemodynamically stable upon evaluation. Past medical history: has a past medical history of HTN (hypertension) and Hypothyroidism. Past surgical history: has a past surgical history that includes other; tonsillectomy; tongue to lip surgery; laparoscopic cholecystectomy (N/A, 08/29/2020); and PCI-Stent. Social history: reports that he has been smoking cigarettes. He has never used smokeless tobacco. He reports that he does not currently use alcohol. He reports that he does not use drugs. Family history: family history includes Diabetes in his father; Hypertension in his father and mother. Allergies: Allergies Allergen Reactions Penicillin Shortness of Breath Confirmed with patient that he does an allergy to it MEDICATIONS: Prior to Admission medications Medication Sig Start Date End Date Taking? Authorizing Provider aspirin 81 mg tablet Take 1 tablet by mouth daily. Yes Doctor Unassigned, [place] clopidogrel bisulfate (CLOPIDOGREL ORAL) Take by mouth. Yes Doctor Unassigned, [place] levothyroxine sodium (SYNTHROID ORAL) Take by mouth daily. Yes Doctor Unassigned, [place] LISINOPRIL ORAL Take by mouth daily. Yes Doctor Unassigned, [place] REVIEW OF SYSTEMS: Review of Systems Constitutional: Negative for chills and fever. HENT: Positive for rhinorrhea, sinus pressure and sore throat. Respiratory: Negative for chest tightness and shortness of breath. Cardiovascular: Positive for chest pain. Negative for leg swelling. Neurological: Negative for dizziness and light-headedness. PHYSICAL EXAMINATION: Vitals: 03/29/25 0538 03/29/25 0731 03/29/25 1103 03/29/25 1601 BP: (!) 168/105 139/87 126/72 127/69 Pulse: 74 92 75 73 Resp: 19 19 18 Temp: 36 ?C (96.8 ?F) 36.1 ?C (97 ?F) 36.4 ?C (97.5 ?F) TempSrc: SpO2: 96% 94% 96% 96% Weight: Height: Physical Exam Constitutional: General: He is not in acute distress. Appearance: Normal appearance. HENT: Head: Normocephalic and atraumatic. Eyes: Extraocular Movements: Extraocular movements intact. Cardiovascular: Rate and Rhythm: Normal rate and regular rhythm. Pulmonary: Effort: Pulmonary effort is normal. No respiratory distress. Breath sounds: Normal breath sounds. Musculoskeletal: Right lower leg: No edema. Left lower leg: No edema. Neurological: Mental Status: He is alert and oriented to person, place, and time. Psychiatric: Mood and Affect: Mood normal. Behavior: Behavior normal. LABS - reviewed pertinent labs as below: Reviewed Latest Reference Range & Units 03/29/25 04:25 03/29/25 13:24 TROPONIN I <=0.034 ng/mL 0.021 0.006 IMAGING - reviewed, pertinent results as below: Reviewed XR Chest 1 vw Result Date: 03/28/2025 Mild pulmonary vascular congestion. Preliminary Report Dictated by Resident: Ben Parrish MD., have reviewed this study and agree with the above report. === Study performed on encounter date 03/28/25 === Transthoracic echo (TTE) - Interpretation Summary - Right Ventricle: Right ventricle size is normal. Normal systolic function. Tricuspid Valve: Trace transvalvular regurgitation. Insufficient tricuspid regurgitation jet to estimate RVSP . RA pressure is 0-5 mmHg. Left Ventricle: Left ventricle size is normal. Normal wall thickness. There is concentric remodeling. Normal wall motion. Normal systolic function with a visually estimated EF of 55 - 60%. Global longitudinal strain is normal with a value of -24%. Normal diastolic function. Aorta: Mildly enlarged aortic root. ASSESSMENT/PLAN: Marysol Cheung is a 49 year old male with PMH as listed above, admitted to the hospital with: Chest Pain, likely cardiac Hypertriglyceridemia (TG 723) CAD s/p PCI LAD (09/2024, on DAPT, noncompliant) Tobacco use Patient is a 49 year old male presenting from [facility] for chest pain likely cardiac in nature. Patient has a history of PCI to LAD in September 2024. He is reportedly on DAPT. Per chart review, patient's ASA was continued; however, Plavix was seemingly not continued although cardiology note states to continue DAPT. Will restart Plavix at this time given his stent is < 1 year old. Additionally, patient is not on statin medication at home and was noted to have hypertriglyceridemia into 723. High-intensity statin was started at [facility]. Will obtain repeat EKG and troponin. He was transferred to [facility] for possible LHC. - Admit to White Team - Obtain troponin - EKG prn for chest pain - Continue ASA 81 mg daily - Restart Plavix 75 mg daily - Continue Atorvastatin 40 mg QHS - Monitor electrolytes, keep K > 4, Mag > 2 - Nitroglycerin PRN for chest pain - PPCLD at midnight for possible LHC tomorrow - Nicotine patch for smoking cessation - Obtain OSH records for cath in 2023 ([facility]) Sinus congestion Sore Throat Patient reporting new onset sinus congestion and sore throat since yesterday. Will check RSV/flu/COVID today. - Supportive care - RSV/Flu/COVID test Chronic conditions: Prediabetes (HgbA1c 5.8%) Hypothyroidism Hypertension Chronic, stable. Continue home medications. - Continue Coreg 6.25 mg BID meals - Continue Lisinopril 40 mg daily - Continue Levothyroxine 75 mcg QAM - SSI DVT prophylaxis: Lovenox Code Status: Full Code Mickey Calvillo DO Internal Medicine, PGY-2 [place] Team Cosigned by Ruth Wilkes MD at 03/30/2025 1:49 PM CDT Associated attestation - Ruth Wilkes MD - 03/30/2025 1:49 PM CDT I personally examined the patient 03/29/2025 and agree with the note as written. I actively participated in the decision-making process. Please see the note for additional details. This is a 49-year-old male patient with history of coronary artery disease status post PCI 2023, prediabetes and tobacco use admitted with recurrent chest pains concerning for unstable angina. Plan for coronary angiography +/- PCI. INTERNAL MEDICINE [facility] Notes Date/Time Note Provider Source 2025-05-27 17:19:33 Attestation signed by Francisco Maynard MD at 07/06/2025 3:42 AM Lumbar Puncture Date: 05/27/2024 Time: 5:20 Indication: R sided weakness/numbness Resident: Kate Mercado Attending: Francisco maynard A time-out was completed verifying correct patient, procedure, site, positioning, and special equipment if applicable. The patient was placed in the Right lateral decubitus position in a semi- position with help from the nursing staff. The area was cleansed and draped in usual sterile fashion. 1% lidocaine was used anesthetize the surrounding skin area. A 20-gauge 3.5-inch spinal needle was placed in the L3-L4 interspace. No CSF was obtained as patient requested to stop procedure due to anxieyt and pain. Estimated Blood Loss: 1cc Recommendations: - LP with IR and sedation Shimon Simpson MD, MS Neurology PGY-4 [facility] Electronically signed by: SHIMON SIMPSON at 2025-05-27 17:19:33.000 SHIMON SIMPSON [facility] 2025-05-25 07:33:58 Attestation signed by Francisco Maynard MD at 07/06/2025 3:41 AM Please refer to my note for details. NEUROLOGY CONSULT Date of Admission: 05/14/2025 Date of Service: 05/25/2025 Hospital LOS: 11 Reason for Consult: Stroke Date of Consult: 05/14/25 ASSESSMENT & PLAN 49 Y/O right handed male h/o DM2, hypothyroidism, HTN, with recent PCI for ACS presented as a transfer from [facility] after new onset slurring of speech, right facial droop and right arm numbness. S/p TNK 05/13 at OSH and LKN was 1999 on the 05/13. MRI brain with no CVA but with persistent residual deficit. Hospital course at [facility] has been complicated by new onset decreased right eye visual acuity; only sees shadows and light. Now, with left nasal hemianopia. At this time, diagnosis is unclear as there is no unifying localization to explain patient's symptoms and exam. Will need further diagnostic studies to help elucidate diagnosis. Recommendations: [ ] MRI brain, cervical and thoracic spine with and without contrast [ ] NMO and MOG ab [ ] Plan for bedside LP today [ ] Recommend CTV and CAP with contrast to rule out any concern for malignancy [ ] Ophthalmology is following [ ] Continue Gabapentin 200mg BID [ ] PT/OT daily [ ] Continue DAPT. [ ] Continue home dose of thyroxine. [ ] Reconsult ophthalmology for worsening vision. s/p IV Methylprednisone 1gm daily for 3 days (05/20-05/22) Patient seen with Dr. Maynard. Please reach out with any questions/concerns. Kayla Perez MD, MS PGY-3/CNY-1 (Child Neurology) [facility] SUBJECTIVE Interval History: No acute events overnight. This morning, reporting left side leg pain. Pain worse with leg raised. Vision remains the same. Still seeing shadows in right eye HISTORICAL DATA No past medical history on file. Allergies Allergen Reactions Morphine Hives Penicillin Rash No past surgical history on file. No family history on file. Social History Tobacco Use Smoking status: Every Day Current packs/day: 0.50 Average packs/day: 0.5 packs/day for 16.6 years (8.3 ttl pk-yrs) Types: Cigarettes Start date: 10/2008 Substance Use Topics Alcohol use: Not Currently Drug use: Not Currently OBJECTIVE Vitals: 05/24/25 2327 05/25/25 0427 05/25/25 0428 05/25/25 0428 BP: (!) 124/93 BP Location: Patient Position: Pulse: 59 67 Resp: 18 18 Temp: 97 F (36.1 C) 97.4 F (36.3 C) TempSrc: Temporal Artery SpO2: 95% 96% Weight: Height: General: Awake, alert, no apparent distress HEENT: Normocephalic, atraumatic Lungs: Normal WOB Heart: Regular rate GI/: Soft, nondistended Ext/Skin: Warm, dry Strength out of 5 Left Right Shoulder Abduction 5 4 Elbow Flexion 5 4 Elbow Extension 5 4 Hip Flexion 5 4 Knee Flexion (when leg lifted) 5 4 Knee Extension (when leg lifted) 5 4 Mental Status: A/Ox3, opens eyes spontaneously, follows commands, speech fluent Cranial Nerves: EOMI, binocular diplopia R>L, decreased movement of right eye brow compared to the left, asymmetric smile Motor: Tone normal in all extremities Reflexes: 2+ bicep reflexes bilaterally / 2+ Patellar reflexes on the left, 3+ patellar on the right. Sensory: Decreased sensation on the right side of body including face, arm and leg which is improving Coordination: FTN intact bilaterally Gait: Deferred Neuroimaging 05/26/25 MR Brain Without & With IV Contrast MR orbit face neck without & with IV contrast MR cervical spine without & with IV contrast MR thoracic spine without & with IV contrast IMPRESSION: 1. A few subtle FLAIR hyperintensities in the cerebral white matter favor chronic small vessel ischemic changes. No definite demyelinating disease. 2. Subtle FLAIR hyperintensity in the right optic nerve intraorbital segment is favored to be technical in nature. No definite abnormality of the orbits identified. 3. No demyelinating disease identified in the cervical or thoracic spinal cord. Electronically signed by: , at 2025-05-25 07:33:58.000 [facility] 2025-03-30 17:27:59 Problem: Falls, Risk of Goal: Absence of falls 03/30/20251726 by Arcelia Spain RN Outcome: Resolved 03/30/2025823 by Arcelia Spain RN Outcome: Progressing as expected Problem: Discharge Planning Goal: Adequate for discharge 03/30/20251726 by Arcelia Spain RN Outcome: Resolved 03/30/2025823 by Arcelia Spain RN Outcome: Progressing as expected Goal: Effective communication 03/30/20251726 by Arcelia Spain RN Outcome: Resolved 03/30/2025823 by Arcelia Spain RN Outcome: Progressing as expected Problem: Pain Goal: Control of pain at or below patient's documented comfort goal 03/30/20251726 by Arcelia Spain RN Outcome: Resolved 03/30/2025823 by Arcelia Spain RN Outcome: Progressing as expected Goal: Reduction in pain sensation 03/30/20251726 by Arcelia Spain RN Outcome: Resolved 03/30/2025823 by Arcelia Spain RN Outcome: Progressing as expected Problem: Infection Risk Goal: Absence of infection 03/30/20251726 by Arcelia Spain RN Outcome: Resolved 03/30/2025823 by Arcelia Spain RN Outcome: Progressing as expected Problem: Skin integrity Impaired (Risk or Actual) Goal: Wound healing 03/30/20251726 by Arcelia Spain RN Outcome: Resolved 03/30/2025823 by Arcelia Sapin RN Outcome: Progressing as expected Goal: Prevention of new skin breakdown 03/30/20251726 by Arcelia Spain RN Outcome: Resolved 03/30/2025823 by Arcelia Spain RN Outcome: Progressing as expected Problem: Glucose control Goal: Glucose level within specified parameters 03/30/20251726 by Arcelia Spain RN Outcome: Resolved 03/30/2025823 by Arcelia Spain RN Outcome: Progressing as expected Arcelia Spain RN [facility] 2025-03-30 14:30:00 Transferred back to room in stable condition. Right radial intact with no bleeding or hematoma. Kelli Love RN [facility] 2025-03-30 13:53:24 Left Heart Cath/Coronary Angiography Marysol Cheung Date of Service: 03/30/2025 1:53 PM Attending Physician: Carisa Franks MD Fellow: Dr. Addison Referring Physician: No ref. provider found Procedures Performed: [facility] Coronary angiogram Indication/Diagnosis: stable angina Consent: Risks, benefits, alternatives and complications of the procedure discussed with the patient, who understood and agreed to proceed. Aseptic technique: Chlorprep Local Anesthesia: 1% lidocaine without epinephrine Sedation: Moderate Access site: Right radial artery Closure Method: TR band Sterile dressing: yes Complications: none Procedures: After patient identification/verification, the patient was thereafter transferred to the dye lab technician table. The access site was prepped and draped in usual sterile fashion. After administering sedation, time out was done. Under ultrasound guidance, using Seldinger technique, the Right radial artery was accessed and a 6 Fr Slender sheath was introduced into the artery. A5 Fr JL 3.5 catheter was used to cannulate the LM. Selective coronary angiography was done using several views. A 5 Fr JR 4.0 was used to cross the AV with the J wire and the catheter was advanced into the LV where selective LVEDP was measured. The catheter was then used to cannulate the RCA and selective coronary angiography was done using multiple views. The attending physician was present throughout the procedure and provided the highest level of supervision. Findings: Coronary dominance: right Left main: Mild 20-30% distal disease LAD: Patent proximal to mid stent. Mid mild LI. Distal diffuse severe 60-70% disease then severe 70-80% focal apical lesion. D1: Large with severe ostial disease (likely jailed by LAD stent) then severe proximal to mid disease. Distal mild LI LCX: Ostial 40-50% disease then patent proximal stent into OM2. Mid segment has severe 70-80% disease jailed by OM2 stent. Distal diffuse disease OM1: Medium size with severe proximal 70% disease then diffuse mild LI mid to distal OM2: Patent stent with mild ISR RCA: Large and dominant. Proximal mild 20-30% disease. Mid stent patent with mild ISR. Distal mild LI PDA: Patent with diffuse moderate disease PLB: Patent with diffuse moderate disease LVEDP: 13 mmHg Post-Procedure Sedation Addendum Immediately prior to start of sedation, the patient was evaluated and there was no change from the pre-procedure evaluation. I was present and directed medical care. The patient underwent moderate sedation for the procedure. The medications administered were recorded in the MAR; oxygenation, ventilation and circulation were monitored continuously and were recorded in the EMR. I evaluated the patient after the procedure. The patient was evaluated immediately as recovering from sedation. Complications: None Impression: Patent LAD, LCX and RCA stents Severe diffuse distal disease in LAD, diag and LCX (recommend medical management) Normal LVEDP Plan: Recommend aggressive medical management and risk factors modifications. Stents in major coronary arteries are patent. There is diffuse distal disease in LAD and diag which will be better management with medical therapy Findings discussed with the patient and Dr. Carisa Arnett MD 03/30/2025 1:53 PM IM-CARDIOVASCULAR DISEASE STAFF [facility] 2025-03-30 13:03:02 Report to Arcelia aMyers. Radha Mcgill RN [facility] 2025-03-30 08:24:38 Problem: Falls, Risk of Goal: Absence of falls Outcome: Progressing as expected Problem: Discharge Planning Goal: Adequate for discharge Outcome: Progressing as expected Goal: Effective communication Outcome: Progressing as expected Problem: Pain Goal: Control of pain at or below patient's documented comfort goal Outcome: Progressing as expected Goal: Reduction in pain sensation Outcome: Progressing as expected Problem: Infection Risk Goal: Absence of infection Outcome: Progressing as expected Problem: Skin integrity Impaired (Risk or Actual) Goal: Wound healing Outcome: Progressing as expected Goal: Prevention of new skin breakdown Outcome: Progressing as expected Problem: Glucose control Goal: Glucose level within specified parameters Outcome: Progressing as expected [facility] 2025-03-30 03:20:25 Problem: Falls, Risk of Goal: Absence of falls Outcome: Progressing as expected Problem: Discharge Planning Goal: Adequate for discharge Outcome: Progressing as expected Goal: Effective communication Outcome: Progressing as expected Problem: Pain Goal: Control of pain at or below patient's documented comfort goal Outcome: Progressing as expected Goal: Reduction in pain sensation Outcome: Progressing as expected Problem: Infection Risk Goal: Absence of infection Outcome: Progressing as expected Problem: Skin integrity Impaired (Risk or Actual) Goal: Wound healing Outcome: Progressing as expected Goal: Prevention of new skin breakdown Outcome: Progressing as expected Problem: Glucose control Goal: Glucose level within specified parameters Outcome: Progressing as expected Shahla Garcia RN [facility] 2025-03-29 19:43:59 Problem: Falls, Risk of Goal: Absence of falls Outcome: Progressing as expected Problem: Discharge Planning Goal: Adequate for discharge Outcome: Progressing as expected Goal: Effective communication Outcome: Progressing as expected Problem: Pain Goal: Control of pain at or below patient's documented comfort goal Outcome: Progressing as expected Goal: Reduction in pain sensation Outcome: Progressing as expected Problem: Infection Risk Goal: Absence of infection Outcome: Progressing as expected Problem: Skin integrity Impaired (Risk or Actual) Goal: Wound healing Outcome: Progressing as expected Goal: Prevention of new skin breakdown Outcome: Progressing as expected Cynthia Xie RN [facility] 2025-03-29 13:03:58 Problem: Falls, Risk of Goal: Absence of falls Outcome: Progressing as expected Problem: Discharge Planning Goal: Adequate for discharge Outcome: Progressing as expected Goal: Effective communication Outcome: Progressing as expected Problem: Pain Goal: Control of pain at or below patient's documented comfort goal Outcome: Progressing as expected Goal: Reduction in pain sensation Outcome: Progressing as expected Problem: Infection Risk Goal: Absence of infection Outcome: Progressing as expected Problem: Skin integrity Impaired (Risk or Actual) Goal: Wound healing Outcome: Progressing as expected Goal: Prevention of new skin breakdown Outcome: Progressing as expected Benita Weems RN [facility] 2025-03-28 21:23:27 Problem: Falls, Risk of Goal: Absence of falls Outcome: Progressing as expected Problem: Discharge Planning Goal: Adequate for discharge Outcome: Progressing as expected Goal: Effective communication Outcome: Progressing as expected Problem: Pain Goal: Control of pain at or below patient's documented comfort goal Outcome: Progressing as expected Goal: Reduction in pain sensation Outcome: Progressing as expected Problem: Infection Risk Goal: Absence of infection Outcome: Progressing as expected Problem: Skin integrity Impaired (Risk or Actual) Goal: Wound healing Outcome: Progressing as expected Goal: Prevention of new skin breakdown Outcome: Progressing as expected [facility] 2025-03-28 12:48:07 Problem: Falls, Risk of Goal: Absence of falls Outcome: Progressing as expected Problem: Discharge Planning Goal: Adequate for discharge Outcome: Progressing as expected Goal: Effective communication Outcome: Progressing as expected Problem: Pain Goal: Control of pain at or below patient's documented comfort goal Outcome: Progressing as expected Goal: Reduction in pain sensation Outcome: Progressing as expected Problem: Infection Risk Goal: Absence of infection Outcome: Progressing as expected Problem: Skin integrity Impaired (Risk or Actual) Goal: Wound healing Outcome: Progressing as expected Goal: Prevention of new skin breakdown Outcome: Progressing as expected [facility] 2025-03-28 10:26:05 Report called to Wilbert LAZO. Homero Lassiter RN [facility] 2025-03-28 06:59:05 Patient reports intermittent chest pain/pressure and shortness of breath since 0100. Patient states when he has the pain, he becomes diaphoretic. Currently denying symptoms. No fevers, cough. HX: HTN, [place] with 2 stents. Joy Locke RN [facility] 2025-03-28 06:48:00 EMERGENCY DEPARTMENT ENCOUNTER [facility] Patient Name: Marysol Cheung Date of : 1975 49 year old Exam [facility] Primary Care Physician: PATIENT DOES NOT HAVE A PCP Pre- Hospital Patient Escorted by: Friend [6] Mode of Arrival: Personal means [1] EMS Treatment Prior to ED Arrival: KEY ATTENDANT treatment: None ED Events Date/Time Event User Comments 03/28/25721 Medical Screening Begins BENJAMIN ASHFORD MD -- 03/28/25721 First Provider Evaluation BENJAMIN ASHFORD MD -- Chief Complaint Chief Complaint Patient presents with Chest Pain ED Triage Notes Joy Locke RN 03/28/2025 07:01 Patient reports intermittent chest pain/pressure and shortness of breath since 0100. Patient states when he has the pain, he becomes diaphoretic. Currently denying symptoms. No fevers, cough. HX: HTN, [place] with 2 stents. HPI History provided by: Patient Chest Pain Pain location: Substernal area and L chest Pain quality: pressure Pain radiates to: L jaw and L arm Pain severity: Moderate Onset quality: Gradual Duration: 1 day Timing: Intermittent Progression: Waxing and waning Chronicity: New Relieved by: Nothing Worsened by: Nothing Associated symptoms: no abdominal pain, no cough, no dizziness, no fatigue, no fever, no headache, no nausea, no palpitations, no shortness of breath and no vomiting Past Medical History / Immunizations Past Medical History: Diagnosis Date HTN (hypertension) Hypothyroidism Tetanus received in last 5 years: Yes Childhood immunizations: Up-to-date Past Surgical History Past Surgical History: Procedure Laterality Date LAPAROSCOPIC CHOLECYSTECTOMY N/A 08/29/2020 Surgeon: Vaishali Vicente MD; Location: [facility] OR Location OTHER Testicular surgery TONGUE TO LIP SURGERY TONSILLECTOMY Allergies Allergies Allergen Reactions Penicillin Shortness of Breath Confirmed with patient that he does an allergy to it Social History Tobacco Use Every Day; 0.3 packs/day; Types: Cigarettes Smokeless Tobacco: Never used smokeless tobacco. Alcohol Use Yes. Comments: 6beers on the weekend Drug Use Never. Review of Systems Review of Systems Constitutional: Negative. Negative for chills, fatigue, fever and unexpected weight change. HENT: Negative. Eyes: Negative. Negative for discharge and itching. Respiratory: Negative. Negative for cough, chest tightness, shortness of breath and wheezing. Cardiovascular: Positive for chest pain. Negative for palpitations. Gastrointestinal: Negative. Negative for abdominal distention, abdominal pain, nausea and vomiting. Genitourinary: Negative. Negative for dysuria, urgency, frequency and flank pain. Musculoskeletal: Negative. Skin: Negative. Negative for color change, pallor and wound. Neurological: Negative. Negative for dizziness, syncope, light-headedness and headaches. Psychiatric/Behavioral: Negative. Negative for agitation and behavioral problems. All other systems reviewed and are negative. Endocrine: Endocrine negative Physical Exam ED Triage Vitals Weight 03/28/25699 108.9 kg (240 lb) Actual or estimated 03/28/25 1050 Actual Height 03/28/25699 1.727 m (5' 8") BP 03/28/25 07 (!) 156/102 Pulse 03/28/25699 87 Resp 03/28/25699 19 Temp 03/28/25699 36.9 ?C (98.4 ?F) Temp source 03/28/25699 Oral SpO2 03/28/25699 97 % Measured on 03/28/25699 Room air Physical Exam Vitals reviewed. Constitutional: Appearance: He is well-developed. HENT: Head: Normocephalic and atraumatic. Nose: Nose normal. Eyes: Conjunctiva/sclera: Conjunctivae normal. Neck: Trachea: No tracheal deviation. Cardiovascular: Rate and Rhythm: Normal rate and regular rhythm. Heart sounds: Normal heart sounds. No murmur heard. No friction rub. Pulmonary: Effort: Pulmonary effort is normal. No respiratory distress. Breath sounds: Normal breath sounds. No stridor. No wheezing or rales. Abdominal: General: Bowel sounds are normal. There is no distension. Palpations: Abdomen is soft. Tenderness: There is no abdominal tenderness. There is no guarding or rebound. Musculoskeletal: General: Normal range of motion. Cervical back: Normal range of motion and neck supple. Skin: General: Skin is warm and dry. Neurological: Mental Status: He is alert and oriented to person, place, and time. Cranial Nerves: No cranial nerve deficit. Sensory: No sensory deficit. Psychiatric: Behavior: Behavior normal. Labs Lab Results COMP. METABOLIC PANEL (35646) - Abnormal Result Value Ref Range NA 135 135 - 145 mmol/L K 4.0 3.5 - 5.0 mmol/L CL 103 98 - 108 mmol/L CO2 TOTAL 20 (*) 23 - 31 mmol/L AGAP 12 2 - 16 BUN 14 7 - 23 mg/dL GLUCOSE 218 (*) 70 - 110 mg/dL CREATININE 0.54 (*) 0.60 - 1.25 mg/dL TOTAL BILI 0.4 0.1 - 1.1 mg/dL CALCIUM 8.6 8.6 - 10.6 mg/dL T PROTEIN 7.9 6.3 - 8.2 g/dL ALBUMIN 4.5 3.5 - 5.0 g/dL ALK PHOS 87 34 - 122 U/L ALTv 21 5 - 50 U/L AST(SGOT) 32 13 - 40 U/L eGFR 123.7 mL/min/1.73m2 TROPONIN I - Normal TROPONIN I 0.003 <=0.034 ng/mL LIPASE - Normal LIPASE 56 0 - 220 U/L CBC WITH DIFF WBC 8.51 4.20 - 10.70 10*3/?L RBC 4.83 4.26 - 5.52 10*6/?L HGB 15.2 12.2 - 16.4 g/dL HCT 45.7 38.4 - 49.3 % MCV 94.6 81.7 - 95.6 fL MCH 31.5 26.1 - 32.7 pg MCHC 33.3 31.2 - 35.0 g/dL RDW-SD 46.0 38.5 - 51.6 fL RDW-CV 13.1 12.1 - 15.4 % PLT 259 150 - 328 10*3/?L MPV 10.0 9.8 - 13.0 fL NRBC/100 WBC 0.0 0.0 - 10.0 /100 WBCs NRBC x10 3 <0.01 10*3/?L GRAN MAT (NEUT) % 68.3 % IMM GRAN % 0.60 % LYMPH % 22.3 % MONO % 6.0 % EOS % 1.9 % BASO % 0.9 % GRAN MAT x10 3 (ANC) 5.81 1.99 - 6.95 10*3/uL IMM GRAN x10 3 0.05 0.00 - 0.06 10*3/uL LYMPH x10 3 1.90 1.09 - 3.23 10*3/uL MONO x10 3 0.51 0.36 - 1.02 10*3/uL EOS x10 3 0.16 0.06 - 0.53 10*3/uL BASO x10 3 0.08 0.01 - 0.09 10*3/uL Imaging XR Chest 1 vw Final Result EXAM: XR CHEST 1 VW COMPARISON: Chest CT 08/24/2023; chest x-ray on 423 HISTORY: chest pain FINDINGS: Lungs: No focal consolidation, pleural effusion, or pneumothorax. Cephalization and diffuse prominent interstitial markings. Heart/Mediastinum: The cardiac silhouette appears normal accounting for technique. Bones and soft tissues: No acute findings are detected. IMPRESSION Mild pulmonary vascular congestion. Preliminary Report Dictated by Resident: Ben Parrish MD., have reviewed this study and agree with the above report. Orders and Treatments Orders Placed This Encounter Procedures XR Chest 1 vw Troponin I Cbc with Diff Comp. Metabolic Panel (27294) Lipase CBC with Differential Basic Metabolic Panel (NA, K, CL, CO2, GLUCOSE, BUN, CREATININE, CA) Magnesium Serum Glycosylated Hemoglobin (A1C) Troponin I - Serial Q3H x2 from initial occurrence (at 0Hr, 3rd Hr and 6th Hr) POCT GLUCOSE (AUTOMATED) POCT GLUCOSE (AUTOMATED) Consult Cardiology Orders Placed This Encounter Medications nitroglycerin (NITROSTAT) sublingual tablet 0.4 mg morpHINE (4 mg/mL) injection 4 mg ondansetron (ZOFRAN (PF)) injection 4 mg acetaminophen (TYLENOL) tablet 650 mg enoxaparin (LOVENOX) injection 40 mg dextrose 50 % in water (D50W) injection 25 mL glucagon HCL injection 1 mg Sliding Scale Insulin - Lispro (HumaLOG) aspirin chewable tablet 81 mg clopidogrel bisulfate (CLOPIDOGREL ORAL) levothyroxine sodium (SYNTHROID ORAL) LISINOPRIL ORAL aspirin 81 mg tablet HYDROcodone-acetaminophen (NORCO 5) tablet 1 tablet morpHINE (4 mg/mL) injection 4 mg Procedures EKG Time 0708 Rate 84 Normal sinus [place] normal Intervals normal No acute ischemia MDM Patient was evaluated for an emergency medical condition related to Chest Pain Diagnoses considered but not limited to: Labs:were ordered, and resulted, any relevant abnormalities were considered. Abnormal Labs Reviewed COMP. METABOLIC PANEL (21402) - Abnormal; Notable for the following components: Result Value CO2 TOTAL 20 (*) GLUCOSE 218 (*) CREATININE 0.54 (*) All other components within normal limits GLYCOSYLATED HEMOGLOBIN (A1C) - Abnormal; Notable for the following components: HGB A1C 5.8 (*) All other components within normal limits Narrative: Reference Ranges Normal: <5.7% Prediabetes: 5.7 - 6.4% Diabetes: > 6.5% Imaging:This is a teaching institution and preliminary studies are read by physicians in training. A final read by a radiologist will be confirmatory of preliminary studies or may include addenda. A reasonable attempt will be made to contact the patient or family to communicate findings if necessary. ED Course as of 03/28/251817Mar 28, 2025 0839 Bed requested [DN] ED Course User Index [DN] Benjamin Ashford MD Diagnosis/Impression as of 03/28/251817 Chest pain, unspecified type AdmissionCare Guideline: Chest Pain, Observation Based on the indications selected for the patient, the bed status of Observation was determined to be MET The following indications were selected as present at the time of evaluation of the patient: - Observation Care Admission Criteria - Observation care is indicated for 1 or more of the following: - Chest pain (or other anginal equivalent) not classified as low risk for acute coronary syndrome, as indicated by 1 or more of the following: - Patient classified as intermediate risk or high risk for acute coronary syndrome (eg, via use of a clinical decision tool or risk calculator (eg, HEART score greater than 3)) AdmissionCare documentation entered by: Benjamin Ashford [facility] [employer], 29th edition, Copyright ? 2024 [facility] [employer] All Rights Reserved. [id number] Medical Decision Making Problems Addressed: Chest pain, unspecified type: acute illness or injury Amount and/or Complexity of Data Reviewed Labs: ordered. Decision-making details documented in ED Course. Radiology: ordered and independent interpretation performed. Decision-making details documented in ED Course. ECG/medicine tests: ordered and independent interpretation performed. Decision-making details documented in ED Course. Risk Prescription drug management. Parenteral controlled substances. Pulse Oximetry: is not hypoxic. Interpreted. Reassessment:stable Communication with science consultant: Internal Medicine Limitations to patient care and compliance: none. Plan & Summary: The patient is a 49-year-old gentleman who presents for chest pain. He has a history of obesity and coronary disease. He does have one stent. He presents today with chest pain that is similar to his previous [place]. He describes left-sided chest pain. Workup was negative in the emergency department. However, he will be admitted for a cardiac rule out. Marysol Cheung is a 49 year old male presenting for complaint(s) listed within the note. . Admitted to . Case discussed and level of care determined with admitting provider. History, physical exam findings, results of visit, diagnosis, medication regimens and plan of future care have been considered. Additional MDM may be found in the ED course. Vital signs were rechecked before final disposition and determined to be expected for patient's clinical condition. Disposition & Follow Up ED Disposition ED Disposition Admit - Observation Condition -- Comment Treatment Team: [facility] [[id number]] Current Discharge Medication List STOP taking these medications aspirin 81 mg tablet Comments: Reason for Stopping: clopidogrel bisulfate (CLOPIDOGREL ORAL) Comments: Reason for Stopping: levothyroxine sodium (SYNTHROID ORAL) Comments: Reason for Stopping: LISINOPRIL ORAL Comments: Reason for Stopping: Benjamin Ashford Jr., MD Clinical Revival Clerk [facility] Emergency Department [employer] is used frequently and may produce errors. Promptly contact for obvious discrepancies. Benjamin Ashford MD 03/28/25 1818 [facility] [employer] 2025-03-28 06:48:00 AdmissionCare Guideline: Chest Pain, Observation Based on the indications selected for the patient, the bed status of Observation was determined to be MET The following indications were selected as present at the time of evaluation of the patient: - Observation Care Admission Criteria - Observation care is indicated for 1 or more of the following: - Chest pain (or other anginal equivalent) not classified as low risk for acute coronary syndrome, as indicated by 1 or more of the following: - Patient classified as intermediate risk or high risk for acute coronary syndrome (eg, via use of a clinical decision tool or risk calculator (eg, HEART score greater than 3)) AdmissionCare documentation entered by: Benjamin Ashford [facility] [employer], 29th edition, Copyright ? 2024 [facility] [employer] All Rights Reserved. [id number]:[address] [facility] [employer] 2024-11-13 22:14:01 Patient left before discharge-did not get ordered treatment, med, or DC paperwork. Y Garrido RN [facility] 2024-11-13 21:55:35 Attempted to call patient again from lobby-patient is not there. Provider Renita White notified. [facility] 2024-11-13 21:15:00 Went out to lobby -called patient. Patient not in lobby. [facility] 2024-11-13 21:00:00 Went out to lob to call patient back for earwick placement, meds, and DC-patient not there [facility] 2024-11-13 20:37:39 CC: foreign body in L ear, believes its an insect [facility] Vira Huang RN [facility] 2024-02-04 14:36:04 Pt discharged with diagnosis of generalized abdominal pain and N/V. Printed and verbal instructions reviewed with and given to patient. No new prescriptions given for this visit. Pt verbalized understanding of teaching and recommended follow-up. Denies questions or concerns at this time. Pt ambulatory at discharge. Appears in no apparent distress. No ataxia noted. Iris Ferguson RN [facility] 2024-02-04 13:30:00 Report from Korey LAZO. Belkys Corrigan RN [facility] 2024-02-04 10:46:14 Pt arrived via private car with RLQ abd pain starting 2-3 days ago abd becoming worse Shalini Nair RN [facility] 2023-12-28 04:24:01 Pt given printed and verbal discharge instructions regarding epigastric pain, encouraged smaller meals. Pt verbalized understanding of instructions,pt encouraged to follow up with pcp and or GI Advised to seek medical attention for new/prolonged/worsening of symptoms, Awake, alert oriented, resp reg unlabored, skin w/d, pt leaving in no apparent distress, ANDRAT Cynthia Frank RN [facility] 2023-12-28 03:42:02 Pt reports the GI cocktail did not relieve his discomfort. Pt states he can feel his food coming up his esophagus. Pt is requesting medication for pain. Vira Huang RN [facility] 2023-12-28 03:07:24 Patient ambulatory to ED c/o waking up around 0100 this AM to food feeling like it was coming back up from his stomach to mouth. Patient last ate around 1900 and went to bed around 2200. Patient states having headache, denies N/V/D. Tylenol taken around 1900 for headache. ANDRAT Sarina Graham RN [facility] 2023-12-28 03:06:00 [facility] Emergency Department Note Patient Name: Marysol Cheung Date of : 1975 48 year old male Treatment Room: Room/bed info not found Primary Care Physician: PATIENT DOES NOT HAVE A PCP Patient Escorted by: Friend [6] Mode of Arrival: Personal means [1] EMS Treatment Prior to ED Arrival: KEY ATTENDANT treatment: Medication (comment) KEY ATTENDANT treatment comments: Tylenol Travel and Exposure Screening: Symptoms Does patient have any of these symptoms?: (not recorded) Exposure Screening Has patient had contact with someone with a communicable disease in the last month?: (not recorded) Diseases exposed to:: (not recorded) Is Patient ?: (not recorded) Exposure Date: (not recorded) Chief Complaint: Chief Complaint Patient presents with REFLUX Headache History of Present Illness: Marysol Cheung is a 48 year old male who presents to the ED with epigastric fullness that woke him from sleep and radiated towards his throat. No N/V. No fever or chills. Denies any chest pain or discomfort. No palpitations/SOB. 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 [id number] 50-325-40 MG TABLET Take 1 tablet by [...] for follow-up Allison Sanchez MD Specialty: IM-GASTROENTEROLOGY [facility] [id number] [place] [id number] Electronically signed by: Chapito Contreras MD 12/28/23413 [facility] 2023-11-06 02:36:40 Pt given printed and [...] in no apparent distress Y Huang RN [facility] 2023-11-05 23:47:32 Patient ambulatory to ED c/o abd pain that started yesterday. Patient went to PCP today and patient states no prescriptions were given. Patient states vomiting twice KEY ATTENDANT. Last medication taken was Tylenol tonight. Patient is tearful in triage. Y Graham RN [facility] 2023-11-01 04:18:58 Pt given printed and [...] with steady gait, in no apparent distress [facility] 2023-10-31 23:33:52 Pt arrived c/o RLQ/epigastric abdominal pain, vomiting, and headache. Pain began yesterday. PMH: Gallbladder removed 2/3 years ago [facility] 2023-10-31 23:28:00 [facility] Emergency Department Note Patient Name: Marysol Cheung Date of : 1975 48 year old male Treatment Room: LA1/LA1 Primary Care Physician: PATIENT DOES NOT HAVE A PCP Patient Escorted by: Family [5] Mode of Arrival: Personal means [1] EMS Treatment Prior to ED Arrival: KEY ATTENDANT treatment: None Travel and Exposure Screening: Symptoms [...] N/A 08/29/2020 Surgeon: Vaishali Vicente MD; Location: [facility] OR Location OTHER Testicular surgery [...] No obvious mass, no hernia sac, testicles-nl. [place], nontender Musculoskeletal: General: Normal range of motion. [...] the abdomen or pelvis. RL: 460 AFC: 72748 Lab Results: Lab Results COMP. METABOLIC PANEL (32853) - Abnormal Result Value Ref Range NA [...] for Cough for up to 20 doses. [id number] 50-325-40 MG TABLET Take 1 tablet by [...] file Follow-up: Electronically signed by: Jose Francisco Watlers MD 11/01/23 0332 [facility] 2023-10-23 02:26:31 Pt given printed and verbal [...] with steady gait, in no apparent distress. [facility] More Zamudio RN [facility] 2023-10-22 23:44:24 CC: Pt reports RLQ abd pain and 2 episodes of vomiting since morning. Pt has BM this morning was normal. PMHx: HTN, DM2 Awake, alert, oriented, resp reg unlabored, skin warm, color appropriate for race, moves all ext without difficulty, amb with steady gait [facility] 2023-10-22 23:33:00 [facility] Emergency Department Note Patient Name: Marysol Cheung Date of : 1975 48 year old male Treatment Room: LA2/LA2 Primary Care Physician: PATIENT DOES NOT HAVE A PCP Patient Escorted by: Family [5] Mode of Arrival: Personal means [1] EMS Treatment Prior to ED Arrival: KEY ATTENDANT treatment: Medication (comment) KEY ATTENDANT treatment comments: 2 tylenol 2 hrs ago [...] Abdominal Pain History of Present Illness: Marysol Cheung is a 48 year old male who presents to the ED for evaluation of RLQ that began this morning/ Pt rates pain as10/10. Also reports subjective fever. Also has dysuria and hematuria. Pt took Tylenol about noon without relief. 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 Normal appendix. RL: 460 AF: 27368 Lab Results: Lab Results COMP. METABOLIC PANEL (96103) - Abnormal Result Value Ref Range NA [...] Procedures: Procedures MDM: Medical Decision Making Marysol Cheung is a 48 year old male who [...] for Cough for up to 20 doses. [id number] 50-325-40 MG TABLET Take 1 tablet by [...] for follow-up Omaira Chen MD Specialty: IM-GASTROENTEROLOGY [address] [place] [id number] Electronically signed by: Chapito Contreras MD 10/23/23219 [facility] 2023-07-07 05:55:19 Formatting of this n ote [...] ambulated to the lobby with steady gait [facility] 2023-07-07 03:54:59 Formatting of this n ote might be different from the original. Pt states that he last night his blood pressure was running high and he has headache. 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 Pt state that he took his enalapril around 2300 last night. [facility] 2023-07-07 03:49:00 Formatting of this n ote is different from the original. [facility] Emergency Department Note Patient Name: Marysol Cheung Date of : 1975 47 year old male Treatment Room: [place] [address] Primary Care Physician: PATIENT DOES NOT HAVE A PCP Patient Escorted by: Self [9] Mode of Arrival: Personal means [1] EMS Treatment Prior to ED Arrival: KEY ATTENDANT treatment: None Travel and Exposure Screening: Symptoms Does patient have any of these symptoms?: (not recorded) Exposure Screening Has patient had contact with someone with a communicable disease in the last month?: (not recorded) Diseases exposed to:: (not recorded) Is Patient ?: (not recorded) Exposure Date: (not recorded) Chief Complaint: Chief Complaint Patient presents with Headache Hypertension History of Present Illness: Marysol Cheung is a 47 year old male who [...] History provided by: Patient and medical records household appliance repairer used: No Hypertension Severity: Moderate Onset quality: Sudden Duration: 2 hours Timing: Sporadic Chronicity: Chronic Time since last dose of antihypertensive: 2 hours Notable KEY ATTENDANT blood pressures: 198/112 Context: normal sodium, not [...] N/A 08/29/2020 Surgeon: Vaishali Vicente MD; Location: [facility] OR Location OTHER Testicular surgery [...] Lab Results: Lab Results COMP. METABOLIC PANEL (90998) - Abnormal Result Value Ref Range NA [...] Encounter Procedures TROPONIN I COMP. METABOLIC PANEL (86726) LIPASE, SERUM CBC WITH DIFF URINALYSIS Orders Placed This Encounter Medications ketorolac (TORADOL) injection 30 mg metoclopramide HCl (REGLAN) injection 10 mg xwzbfrcdad-ythkhmvxrjzbn-klbj 50-325-40 mg tablet First Provider Eval: ED Events Date/Time Event User Comments 07/07/23399 Medical Screening Begins CHAPITO CONTRERAS MD -- 07/07/23399 First Provider Evaluation CHAPITO CONTRERAS MD -- No notes of EC Admission Criteria type on file. ED COURSE Diagnosis/Impression as of 07/07/23 0553 Nonintractable headache, unspecified chronicity pattern, unspecified headache type Uncontrolled hypertension Procedures: Procedures MDM: Medical Decision Making Marysol Cheung is a 47 year old male who [...] Medications: Patient's Medications START taking these medications BPLCIUKOKD-[id number]-[id number] 50-325-40 MG TABLET Take 1 tablet by [...] for follow-up Ulises Carter MD Specialty: PN-NEUROLOGY [facility] [address] [id number] Electronically signed by: Chapito Contreras MD 07/07/23 0553 [facility] 2023-05-25 22:36:27 Formatting of this n [...] in no apparent distress Vira Huang RN [facility] 2023-05-25 17:15:02 Formatting of this n ote might be different from the original. Pt arrived via private car with c/o chest pain that started about 3 hours KEY ATTENDANT, EKG done in triage, PA assessing pt at this time. Shalini Nair RN [facility]
[2025-07-28 00:38] LABS: Absolute Lymphocytes (CBC) 3.1 K/uL (0.7-4.9); Hematocrit 42.0 % (39.6-49.0); Hemoglobin 14.5 g/dL (13.6-17.9); MCH 31.2 pg (27.0-35.0); MCHC 34.5 g/dL (32.0-36.0); MCV 90.4 fL (80-100); MPV 7.5 fL (7.6-11.3); Nucleated RBC Absolute Count 0.0 (0-0); Nucleated Red Blood Cells % 0.2 % (0-0); RBC Red Blood Cell Count 4.65 M/uL (4.33-5.43); White Blood Count 9.20 thou/uL (4.3-10.9)
[2025-07-28 00:39] LABS: PT Prothrombin Time 11.3 SECONDS (10-13.0); Protime INR 1.0
[2025-07-28 00:59] LABS: ALT/SGPT 29 U/L (16-61); Albumin 3.5 g/dL (3.4-5.0); Albumin/Globulin Ratio 0.9 (1.1-1.8); Alkaline Phosphatase 95 U/L (45-117); Anion Gap 10.9 mEq/L (5.0-15.0); BUN Blood Urea Nitrogen 15 mg/dL (7-18); Globulin 4.0 g/dL (2.3-3.5); Glucose Level 134 mg/dL (74-106); Lipase 31 U/L (13-75); NT PRO-BNP 10 pg/mL (<125); Troponin High Sensitivity 41.5 pg/mL (<58.9)
[2025-07-28 01:01] LABS: AST/SGOT 11 U/L (15-37); Bilirubin Indirect, Calculated 0.0 mg/dL (0.2-0.8); Magnesium 2.0 mg/dL (1.6-2.4); Potassium 3.9 mEq/L (3.5-5.1)
--- NOTE | 2025-07-28 01:52 | EDPHYS ---
Physician Documentation [facility] Name: Carrington Dumont Age: 49 yrs Sex: Male : 1975 Arrival Date: 07/27/2025 Time: 22:56 Bed 5 Private MD: ED Physician Brian Rowley HPI: 07/27 23:54 This 49 yrs old Male presents to ER via Ambulatory with complaints of High cp Blood Sugar. 23:55 The patient or guardian reports chest pain that is located primarily in the substernal cp area, anterior chest wall. 23:55 Onset: today, about 1300. Associated signs and symptoms: Pertinent positives: fatigue, cp Pertinent negatives: abdominal pain, lower extremity pain, lower extremity swelling, near syncope, shortness of breath, syncope. The chest pain is described as a pressure, waxing and waning. Duration: The patient or guardian reports multiple episodes. Historical: - Allergies: 07/28 00:09 PENICILLINS; al5 - PMHx: 00:09 coronary atherosclerosis; Hypertension; Hypothyroidism; al5 - PSHx: 00:09 Cholecystectomy; Stented artery; al5 - Immunization history:: Adult Immunizations up to date. - Infectious Disease History:: Denies. - Social history:: Smoking status: Patient denies any tobacco usage or history of. ROS: 07/27 23:56 Constitutional: Negative for body aches, chills, fever, poor PO intake, cp 23:57 Cardiovascular: Positive for chest pain, Negative for edema, palpitations, cp 23:57 Eyes: Negative for injury, pain, redness, and discharge, cp 23:57 ENT: Negative for drainage from ear(s), ear pain, sore throat, difficulty swallowing, difficulty handling secretions, 23:57 Respiratory: Negative for cough, shortness of breath, wheezing, 23:57 Abdomen/GI: Negative for abdominal pain, vomiting, diarrhea, constipation, 23:57 Neuro: Negative for altered mental status, dizziness, headache, syncope, near syncope, weakness, 23:57 All other systems are negative, Exam: 23:57 Head/Face: Normocephalic, atraumatic. cp 23:57 Constitutional: The patient appears in no acute distress, alert, awake, non-diaphoretic, non-toxic, well developed, well nourished, obese, 23:57 Eyes: Periorbital structures: appear normal, Conjunctiva: normal, no exudate, no injection, Sclera: no appreciated abnormality, Lids and lashes: appear normal, bilaterally, 23:57 ENT: External ear(s): are unremarkable, Nose: is normal, Mouth: Lips: moist, Oral mucosa: moist, Posterior pharynx: Airway: no evidence of obstruction, patent, 23:57 Neck: ROM/movement: Meningeal signs: are not present, nuchal rigidity, is not appreciated, 23:57 Chest/axilla: Inspection: normal, Palpation: is normal, no crepitus, no tenderness, 23:57 Cardiovascular: Rate: normal, Rhythm: regular, Edema: is not appreciated, JVD: is not appreciated, 23:57 Respiratory: the patient does not display signs of respiratory distress, Respirations: normal, no use of accessory muscles, no retractions, labored breathing, is not present, Breath sounds: are clear throughout, no decreased breath sounds, no stridor, no wheezing, 23:57 Abdomen/GI: Inspection: obese Palpation: abdomen is soft and non-tender, in all quadrants, 23:57 Back: CVA tenderness, is absent, 23:57 Neuro: Orientation: to person, place \T\ time. Mentation: is normal, Motor: moves all fours, strength is normal, Sensation: no obvious gross deficits, 07/28 00:05 ECG was reviewed by the Attending Physician. cp Vital Signs: 00:05 BP 113 / 62; Pulse 70; Resp 18; Pulse Ox 97% on R/A; kb4 00:09 BP 126 / 94; Pulse 80; Resp 16; Temp 98(O); Pulse Ox 94% on R/A; Weight 115.67 kg; al5 Height 5 ft. 8 in. ; 01:00 BP 132 / 79; Pulse 82; Resp 18; Pulse Ox 97% on R/A; kb4 02:00 BP 114 / 72; Pulse 68; Resp 18; Pulse Ox 100% on R/A; kb4 03:35 BP 139 / 65; Pulse 76; Resp 18; Pulse Ox 94% on R/A; kb4 05:30 BP 121 / 77; Pulse 71; Resp 16; Pulse Ox 94% on R/A; kd3 00:09 Body Mass Index 38.77 (115.67 kg, 172.72 cm) al5 MDM: 07/27 23:52 Medical Screening Exam initiated cp 07/28 01:55 Data reviewed: vital signs, nurses notes, lab test result(s), EKG, radiologic studies, cp CT scan, plain films, and as a result, I will admit patient. 01:55 Differential diagnosis: abnormal EKG, acute myocardial infarction, acute pericarditis, cp pleurisy, pulmonary embolus, stable angina, thoracic aortic disection, unstable angina. The patient was given aspirin in the Emergency Department. SAVI Risk Score: 1- Known CAD, 1 - Recent [<24hrs] Severe Angina. 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 I considered the following discharge prescriptions or medication management in the emergency department Medications were administered in the Emergency Department. See MAR. Test considered but Not performed: MRI: chest. Care significantly affected by the following chronic conditions: Hypertension, Obesity. Counseling: I had a detailed discussion with the patient and/or guardian regarding the historical points, exam findings, and any diagnostic results supporting the discharge/admit diagnosis, lab results, radiology results, the need for further work-up and treatment in the hospital. Response to treatment: the patient's symptoms have mildly improved after treatment. 07/27 23:52 Order name: Basic Metabolic Panel; Complete Time: 01:40 cp 07/28 01:40 Interpretation: Normal except: GLUC 134. cp 07/27 23:52 Order name: CBC with Diff; Complete Time: 01:40 cp 07/27 23:52 Order name: LFT's; Complete Time: 01:40 cp 07/27 23:52 Order name: Magnesium; Complete Time: 01:40 cp 07/27 23:52 Order name: NT PRO-BNP; Complete Time: 01:40 cp 07/27 23:52 Order name: PT-INR; Complete Time: 01:40 cp 07/27 23:52 Order name: Troponin HS; Complete Time: 01:40 cp 07/28 01:40 Interpretation: Troponin HS 41.5; Reviewed. cp 07/27 23:52 Order name: Lipase; Complete Time: 01:40 cp 07/28 00:12 Order name: Glucose, Ancillary Testing; Complete Time: 01:40 EDMS 07/28 02:25 Order name: CBC with Automated Diff EDMS 07/28 02:25 Order name: CBC with Automated Diff EDMS 07/28 02:25 Order name: Comprehensive Metabolic Panel EDMS 07/28 02:25 Order name: Comprehensive Metabolic Panel EDMS 07/28 02:25 Order name: Troponin High Sensitivity EDMS 07/28 02:25 Order name: Troponin High Sensitivity EDMS 07/28 02:25 Order name: Troponin High Sensitivity EDMS 07/28 02:25 Order name: Troponin High Sensitivity EDMS 07/27 23:52 Order name: XRAY Chest (1 view) cp 07/27 23:32 Order name: Accucheck Blood Glucose; Complete Time: 00: cp 07/27 23:52 Order name: Cardiac monitoring; Complete Time: 00: cp 07/27 23:52 Order name: EKG - Nurse/Tech; Complete Time: 00: cp 07/27 23:52 Order name: IV Saline Lock; Complete Time: 00: cp 07/27 23:52 Order name: Labs collected and sent; Complete Time: 00: cp 07/27 23:52 Order name: O2 Per Protocol; Complete Time: 00: cp 07/27 23:52 Order name: O2 Sat Monitoring; Complete Time: 00:01 cp EC:05 Rate is 80 beats/min. Rhythm is regular. NC interval is normal. QRS interval is normal. cp QT interval is normal. T waves are Inverted in leads I, aVL. Interpreted by me. Reviewed by me. Administered Medications: 02:49 Drug: Aspirin PO Chewable Tablet 324 mg PO once; 81 mg tablets x 4 Route: PO; vc1 03:50 Follow up: Response: No adverse reaction al5 Point of Care Testing: Blood Glucose: 00:01 Blood Glucose: 145 mg/dL; al5 Ranges: Critical Glucose Levels:Adult <50 mg/dl or >400 mg/dl <40 mg/dl or >180 mg/dl Disposition: 19:05 Co-signature as Attending Physician, Brian Rowley DO I agree with the assessment and tt7 plan of care. Disposition Summary: 07/28/25 01:51 Hospitalization Ordered Notes: Hospitalization Status: Observation cp Provider: Narciso Neely cp Condition: Stable cp Problem: new cp Symptoms: have improved cp Bed/Room Type: Standard cp Location: Telemetry/MedSurg (observation)(07/28/25 13:59) bc6 Room Assignment: 204(07/28/25 13:59) 6 Diagnosis - Angina pectoris, unspecified cp Forms: - Medication Reconciliation Form cp - SBAR form cp - Leadership Thank You Letter cp Signatures: Dispatcher [employer] EDMS Marc Vega PA-C PA-C cp Calcote, Vanessa RN RN vc1 Jenny Kirkland bc6 Cytnhia Lord RN RN al5 Brian Rowley, DO tt7 Corrections: (The following items were deleted from the chart) 07/27 23:53 23:53 BASIC METABOLIC PANEL+C.LAB.BRZ ordered. EDMS EDMS 23:53 23:53 CBC+H.LAB.BRZ ordered. EDMS EDMS 23:53 23:53 HEPATIC FUNCTION+C.LAB.BRZ ordered. EDMS EDMS 23:53 23:53 MAGNESIUM+C.LAB.BRZ ordered. EDMS EDMS 23:53 23:53 PROBNP+C.LAB.BRZ ordered. EDMS EDMS 23:53 23:53 PROTIME (+INR)+COAG.LAB.BRZ ordered. EDMS EDMS 23:53 23:53 Troponin High Sensitivity+C.LAB.BRZ ordered. EDMS EDMS 23:53 23:53 LIPASE+C.LAB.BRZ ordered. EDMS EDMS 23:53 23:53 Chest Single View+RAD.RAD.BRZ ordered. EDMS EDMS 07/28 05:23 01:51 Telemetry/MedSurg (observation) cp vc1 05:23 01:51 cp vc1 13:59 05:23 [facility] ER HOLD vc1 bc6 13:59 05:23 ERHOLD- vc1 6
--- NOTE | 2025-07-28 01:52 | ER ---
Nurse's Notes [facility] Name: Carrington Dumont Age: 49 yrs Sex: Male : 1975 Arrival Date: 07/27/2025 Time: 22:56 Bed 5 Private MD: Diagnosis: Angina pectoris, unspecified Presentation: 07/28 00:09 Chief complaint: Patient states: c/o intermittent chest pain/pressure, feeling tired, al5 and cramp on cheek starting at 1300. denies pain at this time. 00:09 Coronavirus screen: At this time, the client does not indicate any symptoms associated al5 with coronavirus-19. Ebola Screen: No symptoms or risks identified at this time. Initial Sepsis Screen: Does the patient meet any 2 criteria? No. Patient's initial sepsis screen is negative. Does the patient have a suspected source of infection? No. Patient's initial sepsis screen is negative. Risk Assessment: Do you want to hurt yourself or someone else? Patient reports no desire to harm self or others. Onset of symptoms was July 27, 2025. 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 [employer] [id number]. al5 Triage Assessment: 00:09 General: Appears in no apparent distress. uncomfortable, Behavior is calm, cooperative. al5 Pain: Denies pain. EENT: No signs and/or symptoms were reported regarding the EENT system. Neuro: Level of Consciousness is awake, alert, obeys commands, Oriented to person, place, time, situation. Cardiovascular: Capillary refill < 3 seconds Patient's skin is warm and dry. Rhythm is sinus rhythm. Respiratory: Airway is patent Respiratory effort is even, unlabored, Respiratory pattern is regular, symmetrical. GI: No signs and/or symptoms were reported involving the gastrointestinal system. : No signs and/or symptoms were reported regarding the genitourinary system. Derm: Skin is intact, is healthy with good turgor, Skin is pink, warm \T\ dry. normal. Musculoskeletal: Circulation, motion, and sensation intact. Range of motion: intact in all extremities. Historical: - Allergies: 00:09 PENICILLINS; al5 - PMHx: 00:09 coronary atherosclerosis; Hypertension; Hypothyroidism; al5 - PSHx: 00:09 Cholecystectomy; Stented artery; al5 - Immunization history:: Adult Immunizations up to date. - Infectious Disease History:: Denies. - Social history:: Smoking status: Patient denies any tobacco usage or history of. Screenin:08 [facility] ED Fall Risk Assessment (Adult) History of falling in the last 3 months, al5 including since admission No falls in past 3 months (0 pts) Confusion or Disorientation No (0 pts) Intoxicated or Sedated No (0 pts) Impaired Gait No (0 pts) Mobility Assist Device Used No (0 pt) Altered Elimination No (0 pt) Score/Fall Risk Level 0 - 2 = Low Risk Oriented to surroundings, Maintained a safe environment, Hourly rounding (assess needs \T\ fall precautionary measures) done. Abuse screen: Denies threats or abuse. Denies injuries from another. Nutritional screening: No deficits noted. Tuberculosis screening: No symptoms or risk factors identified. Assessment: 00:09 General: Appears in no apparent distress. uncomfortable, well groomed, well developed, al5 well nourished, Behavior is calm, cooperative. Pain: Complains of pain in chest Quality of pain is described as pressure. Neuro: Level of Consciousness is awake, alert, obeys commands. Cardiovascular: Capillary refill < 3 seconds Patient's skin is warm and dry. Rhythm is sinus rhythm. Respiratory: Airway is patent Respiratory effort is even, unlabored, Respiratory pattern is regular, symmetrical. GI: No signs and/or symptoms were reported involving the gastrointestinal system. : No signs and/or symptoms were reported regarding the genitourinary system. EENT: No signs and/or symptoms were reported regarding the EENT system. Derm: Skin is intact, is healthy with good turgor, Skin is pink, warm \T\ dry. normal. Musculoskeletal: Circulation, motion, and sensation intact. Range of motion: intact in all extremities. 01:29 Reassessment: Patient appears in no apparent distress at this time. No changes from al5 previously documented assessment. Patient and/or family updated on plan of care and expected duration. Pain level reassessed. Patient is alert, oriented x 3, equal unlabored respirations, skin warm/dry/pink. 03:35 Reassessment: No changes from previously documented assessment. Patient and/or family kb4 updated on plan of care and expected duration. Pain level reassessed. Patient is alert, oriented x 3, equal unlabored respirations, skin warm/dry/pink. sleeping with family at bedside. Vital Signs: 00:05 BP 113 / 62; Pulse 70; Resp 18; Pulse Ox 97% on R/A; kb4 00:09 BP 126 / 94; Pulse 80; Resp 16; Temp 98(O); Pulse Ox 94% on R/A; Weight 115.67 kg; al5 Height 5 ft. 8 in. ; 01:00 BP 132 / 79; Pulse 82; Resp 18; Pulse Ox 97% on R/A; kb4 02:00 BP 114 / 72; Pulse 68; Resp 18; Pulse Ox 100% on R/A; kb4 03:35 BP 139 / 65; Pulse 76; Resp 18; Pulse Ox 94% on R/A; kb4 05:30 BP 121 / 77; Pulse 71; Resp 16; Pulse Ox 94% on R/A; kd3 00:09 Body Mass Index 38.77 (115.67 kg, 172.72 cm) al5 ED Course: 07/27 22:59 Patient arrived in ED. sj2 23:32 Marc Vega PA-C is PHCP. cp 23:32 Brian Rowley DO is Attending Physician. cp 07/28 00:08 No provider procedures requiring assistance completed. Inserted saline lock: 20 gauge al5 in right wrist, using aseptic technique. Blood collected. Flushed with 10 mL NS. 00:08 Patient has correct armband on for positive identification. Bed in low position. Call al5 light in reach. Side rails up X 1. Provided Education on: plan of care. 00:09 Arm band placed on right wrist. Patient placed in the treatment room, in view of staff al5 members, on secured entrance monitor, on pulse oximetry. 00:10 yCnthia Lord, VIOLET is Primary Nurse. al5 00:31 XRAY Chest (1 view) In Process Unspecified. EDMS 01:07 Triage completed. al5 01:51 Narciso Neely MD is Hospitalizing Provider. cp Administered Medications: 02:49 Drug: Aspirin PO Chewable Tablet 324 mg PO once; 81 mg tablets x 4 Route: PO; vc1 03:50 Follow up: Response: No adverse reaction al5 Medication: 00:09 VIS not applicable for this client. al5 Point of Care Testing: Blood Glucose: 00:01 Blood Glucose: 145 mg/dL; al5 Ranges: Outcome: 01:51 Decision to Hospitalize by Provider. cp 15:02 Patient left the ED. iw Signatures: Dispatcher [employer] Lou Wesis RN RN iw Marc Vega, PA-C PA-C Flor Flor RN RN kd3 Imani Smith RN RN vc1 Cynthia Lord RN RN al5 Jason Armenta 2 Kecia Hyde RN RN kb4
[2025-07-28] MEDS ORDERED: ACETAMINOPHEN 325 MG TABLET PO PRN (02:20)
[2025-07-28] MEDS ORDERED: ONDANSETRON 4 MG/2 ML VIAL IV PRN (02:20)
--- NOTE | 2025-07-28 02:20 | P.HP ---
Certification for Inpatient Patient admitted to: Observation With expected LOS: <2 Midnights Practitioner: I am a practitioner with admitting privileges, knowledge of patient current condition, hospital course, and medical plan of care. Services: Services provided to patient in accordance with Admission requirements found in Title 42 Section 412.3 of the Code of Federal Regulations Patient History Date of Service: 07/28/25 Reason for admission: Chest Pain History of Present Illness: 49 yrs old Male with past medical history hypertension hyperlipidemia, hypothyroidism, CAD status post PCI and stents, obesity who was brought to ER with chest pain. Retrosternal location, pressure-like, nonradiating not associated with any diaphoresis. No nausea vomiting or diarrhea. Denies any fever or chills. No Cough. No sick contacts. At the time of interview pain is 8 out of 10 in severity. Patient was assessed in the ER and is admitted for further management of chest pain to rule out ACS Allergies Penicillins Allergy (Intermediate, Verified 03/10/24 01:47) Hives/Rash Home medications list reviewed: Yes Home Medications: Aspirin Chewable [Aspirin Chewable*] 81 mg PO DAILY #30 tab.chew 02/07/24 Clopidogrel Bisulfate [Plavix] 75 mg PO DAILY #30 tab 10/15/24 lisinopriL [Lisinopril] PO 07/28/25 - Past Medical/Surgical History Diabetic: No Past Medical History: Reviewed- Non-Contributory -: HDL -: HTN -: HYPOTHYROIDISM -: [place], PCI, 02/10 Past Surgical History: Reviewed- Non-Contributory -: RAMIRO -: PCI - Family History Family History: Reviewed- Non-Contributory - Family History Mother -: Hypertension Father -: Hypertension, Diabetes - Social History Smoking Status: Never smoker Alcohol use: No CD- Drugs: No Caffeine use: Yes Review of Systems 10-point ROS is otherwise unremarkable Physical Examination - Vital Signs Temperature: 98.4 F Blood Pressure: 138/76 Pulse: 78 Respirations: 18 Pulse Ox (%): 94 - Physical Exam General: Alert, In no apparent distress, Oriented x3 HEENT: Atraumatic, Normocephalic Neck: Supple Respiratory: Clear to auscultation bilaterally, Normal air movement Cardiovascular: Regular rate/rhythm, Normal S1 S2 Capillary refill: <2 Seconds Gastrointestinal: Soft and benign, W/out hepatosplenomegaly Musculoskeletal: No clubbing, No swelling Integumentary: No rashes Neurological: Other (Alert awake nonfocal) Lymphatics: No axilla or inguinal lymphadenopathy - Studies Laboratory Data (last 24 hrs) 07/28/25 07/28/25 07/28/25 00:12 00:12 00:12 WBC 9.20 Hgb 14.5 Hct 42.0 Plt Count 300 PT 11.3 INR 1.00 Sodium 138 Potassium 3.9 BUN 15 Creatinine 0.82 Glucose 134 H Magnesium 2.0 Total Bilirubin 0.2 AST 11 L ALT 29 Alkaline Phosphatase 95 Lipase 31 Assessment and Plan - Plan Unstable angina Will trend cardiac enzymes Will monitor telemetry Started on aspirin and statin and Plavix EKG did not show any acute changes suggestive of ischemia Cardiology consult Hypertension Antihypertensives titrated Continue home medications and titrate as needed Hyperlipidemia Continue statin CAD status post stents Monitor closely under telemetry Continue home medications and titrate as needed Hypothyroidism Continue home medications Obesity Advise lifestyle modification GI/DVT prophylaxis Advanced directive full code Discharge Plan: Home Plan to discharge in: 48 Hours - Advance Directives Does patient have a Living Will: No Does patient have a Durable POA for Healthcare: No - Code Status/Comfort Care Code Status: Full Code Time Spent Managing Pts Care (In Minutes): 48
[2025-07-28] MEDS ORDERED: ASPIRIN 81 MG CHEWABLE TABLET ONE ×2 (02:38→11:40)
[2025-07-28 04:14] VITALS: BMI 38.7
--- NOTE | 2025-07-28 05:52 | RAD REPORT ---
XR CHEST 1 VIEW CLINICAL INDICATION: Chest pain COMPARISON: Chest radiograph 05/23/2025 FINDINGS: SUPPORT DEVICES: None LUNGS/PLEURAL SPACES: Central pulmonary vascular congestion. No pleural effusion. No pneumothorax. HEART/MEDIASTINUM: Within normal range. BONES/UPPER ABDOMEN/SOFT TISSUES: No acute findings. IMPRESSION: Central pulmonary vascular congestion. Electronically signed by: Keerthi Henderson MD 07/28/2025 02:13 AM CDT Due to temporary technical issues with the PACS/[employer] reporting system, reports are being randy d by the in-house radiologist without review as a courtesy to ensure prompt reporting the interpreting radiologist is fully responsible for the content of the report. Transcribed Date/Time: 07/28/2025 5:52 AM
[2025-07-28] MEDS ORDERED: ENOXAPARIN 40 MG/0.4 ML SQ ONE (08:08)
[2025-07-28] MEDS: ENOXAPARIN 40 MG/0.4 ML SQ SCH (08:23)
[2025-07-28] MEDS: POTASSIUM 25 MEQ EFFERV TAB PO ONE (08:37)
[2025-07-28] MEDS ORDERED: POTASSIUM 25 MEQ EFFERV TAB ONE (09:03)
[2025-07-28] MEDS: CLOPIDOGREL 75 MG TABLET PO SCH (09:09)
[2025-07-28] MEDS: ASPIRIN EC 81 MG TAB PO SCH (09:09)
--- NOTE | 2025-07-28 10:03 | P.CNS ---
Date of Consult: 07/28/25 Chief Complaint: Chest Pain History of Present Illness: Patient with PMH of CAD, S/P LAD/LCX stents, DM, presented with one episode of chest pain yesterday, denies any chest pain today, report complaince with medications, denies syncope, no palpitations, no dizzy spells. Allergies Penicillins Allergy (Intermediate, Verified 03/10/24 01:47) Hives/Rash Home medications list reviewed: Yes Home Medications: Aspirin Chewable [Aspirin Chewable*] 81 mg PO DAILY #30 tab.chew 02/07/24 Clopidogrel Bisulfate [Plavix] 75 mg PO DAILY #30 tab 10/15/24 lisinopriL [Lisinopril] PO 07/28/25 - Past Medical/Surgical History Diabetic: No -: HDL -: HTN -: HYPOTHYROIDISM -: [place], PCI, 02/10 -: RAMIRO -: PCI - Family History Mother Medical History: Hypertension Father Medical History: Hypertension, Diabetes - Social History Smoking Status: Current every day smoker Alcohol use: No CD- Drugs: No Caffeine use: Yes Place of Residence: Home Review of Systems 10-point ROS is otherwise unremarkable Physical Examination Temp Pulse Resp BP Pulse Ox 97.8 F 74 18 124/108 H 99 07/28/25 08:00 07/28/25 08:00 07/28/25 08:00 07/28/25 08:00 07/28/25 08:00 General: Alert, In no apparent distress HEENT: Atraumatic, PERRLA, Mucous membr. moist/pink, EOMI, Sclerae nonicteric Neck: Supple, 2+ carotid pulse no bruit, No LAD, Without JVD or thyroid abnormality Respiratory: Clear to auscultation bilaterally, Normal air movement Cardiovascular: Regular rate/rhythm, Normal S1 S2 Gastrointestinal: Normal bowel sounds, No tenderness Musculoskeletal: No tenderness Integumentary: No rashes Neurological: Normal gait, Normal speech, Normal tone, Normal affect Lymphatics: No axilla or inguinal lymphadenopathy Laboratory Data (last 24 hrs) 07/28/25 07/28/25 07/28/25 00:12 00:12 00:12 WBC 9.20 Hgb 14.5 Hct 42.0 Plt Count 300 PT 11.3 INR 1.00 Sodium 138 Potassium 3.9 BUN 15 Creatinine 0.82 Glucose 134 H Magnesium 2.0 Total Bilirubin 0.2 AST 11 L ALT 29 Alkaline Phosphatase 95 Lipase 31 - Problems (1) CAD (coronary artery disease) Current Visit: No Status: Acute Plan: continue to trend troponin for 3 sets, if negative, then no further cardiac work up needed continue ASA 81 mg salas;y continue Plavix 75 mg daily add Lipitor 40 mg daily add Imdur 30 mg daily (2) HLD (hyperlipidemia) Current Visit: No Status: Acute Plan: add Lipitor 40 mg daily (3) HTN (hypertension) Current Visit: No Status: Acute Plan: add Imdur 30 mg daily continue home dose lisinopril. continue to monitor
[2025-07-28] MEDS ORDERED: CLOPIDOGREL 75 MG TABLET ONE (11:40)
--- NOTE | 2025-07-28 13:35 | P.PN ---
Patient was admitted this morning. Subjective: c/o some chest pain but improving. No shortness of breath. No nausea or vomiting. No abdominal pain. No obvious bleeding. Looks comfortable in the bed. Objective: General appearance: Alert and comfortable CVS: Normal S1 and S2 Lungs: Clear to auscultation bilaterally Abdomen: Soft, bowel sounds present, no tenderness Extremities: No lower extremity edema 49 year old patient with chest pain, troponin negative, cardiology consult requested, follow-up on echo.
[2025-07-28 15:52] VITALS: O2SAT 94
[2025-07-29 05:23] LABS: ALT/SGPT 28.0 U/L (16-61); AST/SGOT 14.0 U/L (15-37); Albumin 3.7 g/dL (3.4-5.0); Albumin/Globulin Ratio 0.9 (1.1-1.8); Alkaline Phosphatase 86.0 U/L (45-117); Anion Gap 9.9 mEq/L (5.0-15.0); BUN Blood Urea Nitrogen 12.0 mg/dL (7-18); Globulin 3.9 g/dL (2.3-3.5); Glucose Level 117.0 mg/dL (74-106); Potassium 3.9 mEq/L (3.5-5.1)
[2025-07-29 05:25] VITALS: BP 142/91; TEMP 98
[2025-07-29] MEDS ORDERED: ISOSORBIDE MONO SR 30 MG TAB PO SCH (09:00)
[2025-07-29] MEDS ORDERED: GABAPENTIN 100 MG CAP PO SCH (09:00)
[2025-07-29] MEDS ORDERED: ASPIRIN 81 MG CHEWABLE TABLET PO SCH (09:00)
[2025-07-29] MEDS ORDERED: CLOPIDOGREL 75 MG TABLET PO SCH (09:00)
[2025-07-29] MEDS ORDERED: AMLODIPINE 10 MG TAB PO SCH (09:00)
--- NOTE | 2025-07-29 10:59 | P.DS ---
Admission Date: 07/28/25 Discharge Date: 07/29/25 Disposition: AMA-LEFT AGAINST MEDICAL ADVIC Reason for Admission: Chest Pain Hospital Course: Patient was admitted after he presented with chest pain. He has a history of coronary disease status post PCI and currently on dual antiplatelet therapy. ACS was ruled out with negative cardiac enzymes. Patient left AMA today before he could be evaluated by primary team. Vital Signs/Physical Exam: Temp Pulse Resp BP Pulse Ox 98 F 77 18 142/91 H 98 07/29/25 04:00 07/29/25 04:00 07/29/25 04:00 07/29/25 04:00 07/29/25 04:00 Laboratory Data at Discharge: WBC Cancelled 07/29/25 05:00 Hgb Cancelled 07/29/25 05:00 Hct Cancelled 07/29/25 05:00 Plt Count Cancelled 07/29/25 05:00 PT 11.3 SECONDS (10-13.0) 07/28/25 00:12 INR 1.00 07/28/25 00:12 Sodium 136 mEq/L (136-145) 07/29/25 04:55 Potassium 3.9 mEq/L (3.5-5.1) 07/29/25 04:55 BUN 12 mg/dL (7-18) 07/29/25 04:55 Creatinine 0.76 mg/dL (0.70-1.30) 07/29/25 04:55 Glucose 117 mg/dL (74-106) H 07/29/25 04:55 Magnesium 2.0 mg/dL (1.6-2.4) 07/28/25 00:12 Total Bilirubin 0.5 mg/dL (0.2-1.0) 07/29/25 04:55 AST 14 U/L (15-37) L 07/29/25 04:55 ALT 28 U/L (16-61) 07/29/25 04:55 Alkaline Phosphatase 86 U/L (45-117) 07/29/25 04:55 Lipase 31 U/L (13-75) 07/28/25 00:12 Home Medications: Aspirin Chewable [Aspirin Chewable*] 81 mg PO DAILY #30 tab.chew 02/07/24 Clopidogrel Bisulfate [Plavix] 75 mg PO DAILY #30 tab 12/27/24 Amlodipine [Norvasc] 10 mg PO DAILY 07/28/25 Gabapentin [Neurontin] 200 mg PO BID 07/28/25 Levothyroxine [Synthroid*] 0.125 mg PO [id number] 07/28/25 Followup: NONE,NONE [Primary Care Provider] -
[2025-07-29] MEDS ORDERED: ATORVASTATIN 40 MG TAB PO SCH (21:00)
[2025-07-30] MEDS ORDERED: LEVOTHYROXINE SOD 0.125 MG TAB PO SCH (06:00)
== END 2025-07-29 08:58 | disposition left against medical advice (07) ==
LOC: ER 22:56 → ERHOLD 07-28 02:20 → 2ND 07-28 14:30
PROVIDERS: ADMIT Family Medicine; ATTEND Internal Medicine
DX: R07.9 Chest pain, unspecified (principal); I10 Essential (primary) hypertension; E78.5 Hyperlipidemia, unspecified; E03.9 Hypothyroidism, unspecified; I25.10 Atherosclerotic heart disease of native coronary artery without angina pectoris; F17.210 Nicotine dependence, cigarettes, uncomplicated; Z95.5 Presence of coronary angioplasty implant and graft; Z88.0 Allergy status to penicillin; Z79.82 Long term (current) use of aspirin
CPT/HCPCS: 36415; 71045; 80048; 80053; 80076; 82947; 83690; 83735; 83880; 84484; 85025; 85610; 93005; 93306; 99284; G0378; J1650